=== PATIENT | female | born 2000 | race Caucasian/White ===

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

== ENCOUNTER 2018-04-01 13:33 | Emergency (ER) | payer MEDICAID, SELFPAY ==
[2018-04-01 13:34] VITALS: BP 126/69; PULSE 104; RESP 16; TEMP 36.6; O2SAT 99; BMI 25.2
[2018-04-01 13:55] LABS: Bedside Glucose 126 mg/dL (70-110)
--- NOTE | 2018-04-01 14:00 | ED.DCSUM_ITS ---
- ER Visit Summary Date of Service: 04/01/18 Chief Complaint: Headache and leg pain History of Present Illness: The patient is a [address] Espinosa. She has a history of type 1 diabetes mellitus. She reports that she has pain in both legs that began this morning. States it was present when she woke at 9 AM. She has not had this previously. However, she reports that she has been walking a great deal over the past few days. She also complains of a headache is 4 out of 10 severity. She does have a history of similar headaches. Patient denies any other myalgias. She denies back pain. No fever or chills. No chest pain, cough, or shortness of breath. No abdominal pain. She has been nauseated, but she has not vomited. No diarrhea. No melena or hematochezia. No dysuria frequency. She is on her menstrual cycle now. No vaginal discharge. Physical Examination: Vitals: Stable. Afebrile. General: Well-nourished and well-developed. Head: Normocephalic atraumatic. Neck: Supple, no lymphadenopathy. No JVD. Nontender. Cardiovascular: Regular rate and rhythm. No murmurs. Respiratory: No respiratory distress. Clear to auscultation bilaterally. Abdominal: Soft, nontender, nondistended, normal bowel sounds. No guarding, rebound, or peritoneal signs. Back: Nontender. Extremities: Mild diffuse sinus palpation over her thighs and legs bilaterally. This is both anterior and posterior. She has 2+ dorsalis pedis pulses. She has normal sensation to light touch. No edema. Skin: Normal color, no rash. Neurologic: Alert and oriented ?3. Cranial nerves II through XII are intact. Normal strength and sensation. Psych: Depressed affect. Test Results: Accu-Chek is 126. CBC is remarkable for segment neutrophils 74. Chem-7 is more for potassium 3.4 and creatinine 0.51. CPK is normal. test is negative. Emergency Department Course and Treatment: The patient has a difficult time discerning between pain and numbness. On exam she denies any change in sensation to her legs. However, they are tender to palpation. She was treated with a liter of normal saline and Tylenol p.o. repeat Accu-Chek is 56. The patient ate here. Treatment Plan: Patient be discharged instructions to push fluids. Check her sugar and eat frequent small meals. Follow-up with her primary care physician 1 to days if not improving. Return to the emergency department for any worsening symptoms. Disposition: To home in improved and stable condition. Impression: 1. Myalgias and legs. 2. Type 1 diabetes mellitus. 3. Hypoglycemia. This note was generated with [employer] dictation software. It may contain incorrect words, spelling, and punctuation that were not noted in review of the chart prior to signing ED Disposition - Plan for ED Patient: Chief Complaint: General Illness Instructions: ED Muscle Aching Referrals: Martin Baldwin MD [Primary Care Provider] - 1-2 Days if not improving
[2018-04-01] MEDS: 0.9% Normal Saline 1,000 ML 1000 ML IV (14:17)
[2018-04-01] MEDS: Acetaminophen 500 MG Tablet 1000 MG PO (14:17)
[2018-04-01] MEDS: Ondansetron 4 MG/2 ML Vial IV (14:18)
[2018-04-01 14:26] LABS: Absolute Lymphocyte Count 1.26 X10^3/ul (0.83-4.51); Absolute Neutrophil Count 4.5 X10^3/uL (2.0-7.7); Basophil# 0.04 X10^3/uL; Basophil% 0.7 % (0-1); Eosinophil# 0.06 X10^3/uL; Hematocrit 41.2 % (37-47); Lymphocyte # 1.26 X10^3/ul (4.0); Lymphocyte % 20.7 % (19-41); Mean Corpuscular Hgb 28.3 pg (27.0-32.0); Mean Corpuscular Volume 83.4 fL (81-99); Mean Platelet Vol. 8.6 fl (6.2-12.0); Monocyte# 0.22 X10^3/uL; Monocyte% 3.6 % (0-10); Neutrophil # 4.51 X10^3/uL (2.7-7.7); Platelet Count 289 K/mm3 (150-450); RBC Distribution Width CV 13.1 % (11.6-14.6); RBC Distribution Width SD 39.5 fl (35.1-43.9); Red Blood Count 4.94 M/mm3 (4.2-5.4); White Blood Count 6.1 K/mm3 (4.4-11.0)
[2018-04-01 14:28] LABS: POSITIVE COUNT NO; POSITIVE DIFFERENTIAL NO; POSITIVE MORPHOLOGY NO
[2018-04-01 14:44] LABS: Anion Gap 8 (5-15); BUN 13 mg/dL (7-18); BUN/Creat Ratio 25.6 RATIO (10-20); Calcium,Total 9.2 mg/dL (8.5-10.1); Chloride 106 mmol/L (98-107); Creatinine, Serum 0.51 mg/dL (0.55-1.02); EST Glomerular Filtration Rate 165 mL/min (>60); Est Glom Filt Rate - Afr Amer 199 mL/min (>60); Estimated Creatinine Clearance 158.81 ml/min; Glucose 81 mg/dL (74-106); Potassium 3.4 mmol/L (3.5-5.1); Sodium Level 141 mmol/L (136-145)
[2018-04-01 14:49] LABS: Pregnancy, Serum, hCG Quali. NEGATIVE Negative (0-9 Nonpreg)
[2018-04-01 14:53] LABS: CPK Total, Creatine Kinase 43 U/L (26-192)
[2018-04-01 14:56] LABS: Bedside Glucose 56 mg/dL (70-110)
[2018-04-01 15:35] VITALS: PULSE 92; RESP 14; O2SAT 99
== END 2018-04-01 15:36 | disposition home or self-care (01) ==
PROVIDERS: Emergency Provider Emergency Medicine; Family Provider Pediatrics; PCP Pediatrics
DX: M79.1 Myalgia (principal); E10.649 Type 1 diabetes mellitus with hypoglycemia without coma; J45.909 Unspecified asthma, uncomplicated; Z79.4 Long term (current) use of insulin; Z79.899 Other long term (current) drug therapy
CPT/HCPCS: 80048; 82550; 82962; 84703; 85025; 96361; 96374; 99285; J7030; J2405

== ENCOUNTER 2018-06-29 10:45 | Emergency (ER) | payer MEDICAID, SELFPAY ==
[2018-06-29 10:46] VITALS: BP 126/70; PULSE 87; RESP 16; TEMP 36.6; O2SAT 97; BMI 24.2
[2018-06-29] MEDS: 0.9% Normal Saline 1,000 ML 1000 ML IV (11:22)
[2018-06-29 11:26] LABS: Bedside Glucose 229 mg/dL (70-110)
[2018-06-29 11:26] LABS: Internal QC Validated? YES +Cl - CLEAR BKGD
[2018-06-29 11:27] LABS: Color, Urine Yellow (Yellow); Glucose, Dipstick 1000 mg/dl (Normal); Ketone-Dipstick Negative (Negative); Leukocyte Esterase-Dipstick 25 /ul (Negative); Nitrite-Dipstick Negative (Negative); Occult Blood-Urine 250 /ul (Negative); Protein-Dipstick 15 mg/dl (Negative); Specific Gravity, Urine 1.025 (1.002-1.030); Urine Bilirubin Dipstick Negative (Negative); Urine Clarity Clear (Clear); Urine Urobilinogen Normal (Normal)
[2018-06-29 11:30] LABS: Pregnancy, Urine Negative Negative
[2018-06-29 11:34] LABS: White Blood Cells 0-5 SEEN /hpf (0-5)
[2018-06-29 11:35] LABS: Red Blood Cells-Urine 5-10 SEEN /hpf (0-5); Squamous Epithelial Cells - UA 0-5 SEEN /hpf (5-10)
[2018-06-29 11:36] LABS: Bacteria RARE /hpf (None Seen); Mucous, Urine RARE /hpf (<or=2+)
[2018-06-29 11:36] LABS: Absolute Lymphocyte Count 1.34 X10^3/ul (0.83-4.51); Absolute Neutrophil Count 2.8 X10^3/uL (2.0-7.7); Basophil# 0.01 X10^3/uL; Basophil% 0.2 % (0-1); Eosinophil# 0.04 X10^3/uL; Eosinophils% 0.9 % (0-5); Hematocrit 38.7 % (37-47); Hemoglobin 13.3 g/dl (12.0-15.0); Lymphocyte # 1.34 X10^3/ul (4.0); Mean Corp Hgb Conc 34.4 g/gl (32-36); Mean Corpuscular Hgb 28.2 pg (27.0-32.0); Mean Corpuscular Volume 82.2 fL (81-99); Mean Platelet Vol. 8.6 fl (6.2-12.0); Monocyte# 0.26 X10^3/uL; Monocyte% 5.8 % (0-10); Neutrophil # 2.81 X10^3/uL (2.7-7.7); Neutrophil % 63.1 % (47-70); Platelet Count 245 K/mm3 (150-450); RBC Distribution Width SD 38.8 fl (35.1-43.9); Red Blood Count 4.71 M/mm3 (4.2-5.4); White Blood Count 4.5 K/mm3 (4.4-11.0)
[2018-06-29 11:42] LABS: POSITIVE COUNT NO; POSITIVE DIFFERENTIAL NO; POSITIVE MORPHOLOGY NO
[2018-06-29 11:58] LABS: ALB/GLOB Ratio 1.1 RATIO (0.9-2.4); AST(SGOT) 13 U/L (15-37); Alanine Aminotransfer ALT/SGPT 15 U/L (13-56); Albumin, Serum 3.5 g/dL (3.2-5.0); Alkaline Phosphatase 68 U/L (45-117); Anion Gap 6 (5-15); BUN 11 mg/dL (7-18); BUN/Creat Ratio 22.3 RATIO (10-20); Calcium,Total 8.3 mg/dL (8.5-10.1); Chloride 108 mmol/L (98-107); Creatinine, Serum 0.49 mg/dL (0.55-1.02); EST Glomerular Filtration Rate 170 mL/min (>60); Est Glom Filt Rate - Afr Amer 205 mL/min (>60); Estimated Creatinine Clearance 157.37 ml/min; Globulin 3.1 g/dL (2.2-4.2); Glucose 232 mg/dL (74-106); Potassium 3.7 mmol/L (3.5-5.1); Protein, Total 6.6 g/dL (6.4-8.2); Sodium Level 139 mmol/L (136-145)
--- NOTE | 2018-06-29 12:12 | ED.VISSUMM ---
- ER Visit Summary Date of Service: 06/29/18 Chief Complaint: Abdominal pain History of Present Illness: The patient is a 18 F who states that for 1 week she has had diarrhea and vomiting. She notes a sharp throbbing left lower quadrant abdominal pain that is been intermittent in nature. She is a type I diabetic and has lost her glucometer. Therefore she cannot tell me what her sugars have been running. She states she is not taking insulin anymore because it makes her sick. She does however take her Levemir at night. She last had vomiting 2 days ago and lasted a diarrheal episode last night. No blood in the stool in the vomit. Subjective fever and chills. She is currently on her menstrual cycle. She also notes a headache that has recently developed. She states that she has no light sensitivity. It does not hurt her head significantly to move it back and forth and to bang it on the pillow in the bed (as I observed and pointed out to the patient). No rashes.. Physical Examination: Afebrile vital signs are stable Gen: Well-nourished well-developed Head: Normocephalic atraumatic Eyes: Perrl EOMI ENT: TMs clear no rhinorrhea moist mucous membranes Neck: Supple no lymphadenopathy no JVD nontender CVS: Regular rate rhythm no murmurs normal S1-S2 Respiratory: No distress clear to auscultation bilaterally chest nontender Abdomen: Soft mild diffuse tenderness to palpation without guarding or rebound nondistended normal bowel sounds no masses Back: Nontender Extremity: Nontender no edema Skin: Normal color no rash Neuro: alert orientated ?3 CN II-XII intact normal strength sensation reflexes gait cerebellar Psych: Normal affect normal mood Test Results: Basic labs essentially negative. Elevated blood sugar 232. Urinalysis shows no ketones or obvious infection. Test is negative. White count is normal. Emergency Department Course and Treatment: Patient received IV fluids. I am going to write her for a prescription for Bentyl. I suspect that this is a viral gastroenteritis should resolve. Headache is most likely due to a degree of clinical dehydration. Impression: 1. Gastroenteritis This note was generated with [employer] dictation software. It may contain incorrect words, spelling, and punctuation that were not noted in review of the chart prior to signing ED Disposition - Plan for ED Patient: Disposition: Home or Assisted Living Chief Complaint: Abd Pain Instructions: ED Gastroenteritis Viral Prescriptions: Dicyclomine HCl [Bentyl] 20 mg PO TIDAC #20 cap Referrals: Martin Baldwin MD [Primary Care Provider] - 3-5 Days if not improving
[2018-06-29 12:31] VITALS: BP 117/69; PULSE 77; RESP 17; O2SAT 100
--- NOTE | 2018-06-29 12:32 | NURSING ---
IV DC'ED, CATHETER INTACT, SMALL GAUZE DRESSING PLACED. DISCHARGE INSTRUCTIONS GIVEN TO AND REVIEWED WITH PATIENT, PATIENT DENIES QUESTIONS OR CONCERNS AND VOICES UNDERSTANDING OF DISCHARGE INSTRUCTIONS. PT AMBULATES OUT OF ROOM WITHOUT DIFFICULTY.
== END 2018-06-29 12:32 | disposition home or self-care (01) ==
PROVIDERS: Emergency Provider Emergency Medicine; Family Provider Pediatrics; PCP Pediatrics
DX: A08.4 Viral intestinal infection, unspecified (principal); E10.9 Type 1 diabetes mellitus without complications; J45.909 Unspecified asthma, uncomplicated; Z79.4 Long term (current) use of insulin; Z79.899 Other long term (current) drug therapy
CPT/HCPCS: 80053; 81001; 81025; 82962; 85025; 99283; J7030

== ENCOUNTER 2018-07-02 09:41 | Inpatient (IN) | payer MEDICAID, SELFPAY ==
[2018-07-02] VITALS (17 sets, daily range): BP systolic 89–146; BP diastolic 50–98; PULSE 86–129; RESP 14–26; TEMP 36.5–37.3; O2SAT 98–100; BMI 23.7; BMI 24.3
--- NOTE | 2018-07-02 10:13 | RAD_ITS ---
STUDY: X-RAY CHEST REASON FOR EXAM: Female, 18 years old. Diffuse abdominal pain with nausea and vomiting. TECHNIQUE: Single AP portable view of the chest. COMPARISON: Comparison is made with prior study dated July 05, 2015. FINDINGS: The lungs are clear and expanded. There is no demonstrated pleural abnormality. Normal size heart. Normal mediastinum and [place]. Normal visualized pulmonary arteries. Normal visualized aortic arch and descending thoracic aorta. Normal visualized thoracic spine. Normal visualized ribs, clavicles, and shoulders. There is no demonstrated abnormality of the visualized soft tissue structures of the upper abdomen. RAD/Chest 1 View (Portable) IMPRESSION: Normal x-ray examination of the chest. Electronically Signed: Akil Deutsch MD at 10:45 EST Tel [phone], Service support ,
--- NOTE | 2018-07-02 10:13 | EKG12_ITS ---
Test Reason : Blood Pressure : / mmHG Vent. Rate : 110 BPM Atrial Rate : 110 BPM P-R Int : 122 ms QRS Dur : 078 ms QT Int : 352 ms P-R-T Axes : 068 081 042 degrees QTc Int : 476 ms Sinus tachycardia Otherwise normal ECG Confirmed by GREGORIA AGOSTO, RACHNA ([id number]), newspaper editor managing ROSHAN TRUJILLO ([id number]) on 07/03/2018 11:54:01 AM Referred By: Mary Weems Confirmed By:RACHNA KINNEY MD
[2018-07-02 10:39] LABS: Bacteria 0 SEEN /hpf (None Seen); Mucous, Urine 0 SEEN /hpf (<or=2+); White Blood Cells 0 SEEN /hpf (0-5)
[2018-07-02 10:41] LABS: Color, Urine Yellow (Yellow); Glucose, Dipstick 1000 mg/dl (Normal); Leukocyte Esterase-Dipstick Negative /ul (Negative); Nitrite-Dipstick Negative (Negative); Occult Blood-Urine 250 /ul (Negative); Protein-Dipstick 100 mg/dl (Negative); Specific Gravity, Urine 1.025 (1.002-1.030); Urine Bilirubin Dipstick Negative (Negative); Urine Clarity Sl. Cloudy (Clear); Urine Urobilinogen Normal (Normal)
[2018-07-02 10:43] LABS: Ketone-Dipstick 150 mg/dl (Negative)
[2018-07-02] MEDS: 0.9% Normal Saline 1,000 ML 999 ML IV ×2 (10:44→10:45)
[2018-07-02 10:45] LABS: Absolute Lymphocyte Count 1.19 X10^3/ul (0.83-4.51); Absolute Neutrophil Count 12.7 X10^3/uL (2.0-7.7); Basophil# 0.04 X10^3/uL; Basophil% 0.3 % (0-1); Eosinophil# 0.01 X10^3/uL; Eosinophils% 0.1 % (0-5); Hemoglobin 15.7 g/dl (12.0-15.0); Lymphocyte # 1.19 X10^3/ul (4.0); Lymphocyte % 8.4 % (19-41); Mean Corp Hgb Conc 34.9 g/gl (32-36); Mean Corpuscular Hgb 28.4 pg (27.0-32.0); Mean Corpuscular Volume 81.4 fL (81-99); Monocyte# 0.17 X10^3/uL; Monocyte% 1.2 % (0-10); Neutrophil # 12.74 X10^3/uL (2.7-7.7); Neutrophil % 89.9 % (47-70); Platelet Count 371 K/mm3 (150-450); RBC Distribution Width CV 13.1 % (11.6-14.6); RBC Distribution Width SD 38.5 fl (35.1-43.9); Red Blood Count 5.53 M/mm3 (4.2-5.4); White Blood Count 14.2 K/mm3 (4.4-11.0)
[2018-07-02] MEDS: Ondansetron 4 MG/2 ML Vial IV ×2 (10:45→20:11)
[2018-07-02] MEDS: Dicyclomine 10 MG Capsule 20 MG PO ×2 (10:45→16:48)
[2018-07-02 10:46] LABS: Blood Gas Specimen Type VEN; O2 Delivery Device Room Air; Time Given 1035; VBG BASE EXCESS -18 mmol/L (-1.0-3.5); VBG Bicarbonate 11 mmol/L (22-26); VBG Oxygen Content 11 mmol/L (23-33); VBG PO2 48 mmHg (25-40); VBG SO2 72 % (50-70); VBG pCO2 29.6 mmHg (41-51); VBG pH 7.16 (7.32-7.42)
[2018-07-02 10:46] LABS: Red Blood Cells-Urine 25-50 SEEN /hpf (0-5); Squamous Epithelial Cells - UA 0-5 SEEN /hpf (5-10)
[2018-07-02 10:50] LABS: POSITIVE COUNT NO; POSITIVE DIFFERENTIAL NO; POSITIVE MORPHOLOGY NO
[2018-07-02 10:57] LABS: ALB/GLOB Ratio 1.2 RATIO (0.9-2.4); AST(SGOT) 8 U/L (15-37); Alanine Aminotransfer ALT/SGPT 17 U/L (13-56); Albumin, Serum 4.7 g/dL (3.2-5.0); Alkaline Phosphatase 98 U/L (45-117); Anion Gap 18 (5-15); BUN 14 mg/dL (7-18); BUN/Creat Ratio 21.9 RATIO (10-20); Calcium,Total 9.2 mg/dL (8.5-10.1); Chloride 104 mmol/L (98-107); Creatinine, Serum 0.64 mg/dL (0.55-1.02); EST Glomerular Filtration Rate 126 mL/min (>60); Est Glom Filt Rate - Afr Amer 152 mL/min (>60); Estimated Creatinine Clearance 117.98 ml/min; Globulin 3.9 g/dL (2.2-4.2); Glucose 372 mg/dL (74-106); Lipase 58 U/L (73-393); Potassium 4.1 mmol/L (3.5-5.1); Protein, Total 8.6 g/dL (6.4-8.2); Sodium Level 134 mmol/L (136-145)
--- NOTE | 2018-07-02 11:23 | ED.DCSUM_ITS ---
History of Present Illness Chief Complaint: Abd Pain Informant: Patient Onset: Days - 10 Context: Gradual Onset Timing: Waxes and wanes Quality: ache Location: diffuse Current Severity: Moderate Maximum Severity: Moderate Worsened by: eating Relieved by: nothing Associated Symptoms: n/v Narrative: Patient seen here 3 days ago and was not in DKA. She states she has been trouble getting syringes for her insulins, but has the medications. For the last 3 days, she has been out of syringes for her Levemir and now has stopped using that as well and now is feeling worse. Having trouble keeping fluids down and is very thirsty. States that when she checks her sugars they have been in the 200s and not bad. - Past Medical History (1) Type I diabetes mellitus Status: Chronic Past Medical History - Allergies and Home Meds Allergies/Adverse Reactions: Allergies Egg Derived Allergy (Verified 07/02/18 09:42) Other Penicillins Allergy (Verified 07/02/18 09:42) Unknown Sulfa (Sulfonamide Antibiotics) Allergy (Verified 07/02/18 09:42) Unknown milk Adverse Reaction (Verified 07/02/18 09:42) Diarrhea prednisone Adverse Reaction (Verified 07/02/18 09:42) Vomiting bee stings Allergy (Severe, Uncoded 07/02/18 09:42) Unknown Primary Care Physician: Martin Baldwin MD [Primary Care Provider] - Surgical History: no surgical history Smoking Status: Former smoker Review of Systems General: Reports: Chills, Malaise. Denies: Fever, Sweats Eyes: Denies: Visual changes - bilaterally, Diplopia ENT: Denies: Rhinorrhea, Sore throat Cardiovascular: Denies: Chest pain, Palpitations Respiratory: Reports: Dyspnea. Denies: Cough, Dyspnea on exertion Gastrointestinal: Reports: Abdominal pain, Nausea, Vomiting. Denies: Diarrhea, Melena, Hematochezia Genitourinary: Denies: Dysuria, Hematuria, Frequency Musculoskeletal: Denies: Back pain, Swelling, Extremity Pain Skin: Denies: Rash, Abscess Neurological: Denies: Headache, Weakness, Numbness Endocrine: Reports: Polyuria - Was urinating a lot, now about normal. Feels dehydrated.. Denies: Polydipsia Hematologic: Denies: Easy bruising, Easy bleeding Allergy: Denies: Swelling of the mouth, Swelling of the tongue Physical Exam Vital Signs/Narrative: Vital Signs Temp Pulse Resp BP Pulse Ox 07/02/18 09:43 99.1 F 128 H 16 125/74 H 98 Inital Vital Signs reviewed: Yes General: Well nourished, Well developed, - - Appears malaised, no acute distress Head: Normocephalic, Atraumatic Eyes: Perrl, EOMI ENT: Moist mucous membranes, No rhinorrhea Neck: Supple, Nontender Cardiovascular: Regular rate, Regular rhythm, No murmurs Respiratory: No distress, CTA bilaterally, Chest nontender Abdomen: Soft, Nontender, Nondistended, Normal bowel sounds Back: Nontender, Normal Inspection Extremities: Nontender, No edema Skin: Normal color, No rash Neurological: Alert, Oriented x3, Cranial nerves II-XII grossly intact, Normal Strength, Normal Sensation Psychological: Normal affect Diagnostic/Tx/Re-eval Impressions Chest X-Ray 07/02/18 10:13 IMPRESSION: Normal x-ray examination of the chest. Electronically Signed: Akil Deutsch MD at 10:45 EST Tel [phone], Service support , 07/02/18 10:13 Chest 1 View (Portable) [RAD] Stat Laboratory Results 07/02/18 07/02/18 07/02/18 10:15 10:34 10:34 WBC 14.2 H RBC 5.53 H Hgb 15.7 H Hct 45.0 MCV 81.4 MCH 28.4 MCHC 34.9 RDW 13.1 RDW Differential 38.5 Plt Count 371 MPV 9.0 Immature Gran % (Auto) 0.100 Neut % (Auto) 89.9 H Lymph % (Auto) 8.4 L [place] % (Auto) 1.2 Eos % (Auto) 0.1 Baso % (Auto) 0.3 Absolute Neuts (auto) 12.7 H Absolute Lymphs (auto) 1.19 Total Counted Not Reportable Specimen Type VBG pH VBG pO2 VBG O2 Sat (Calc) VBG O2 Content VBG Base Excess POC Mix VBG pCO2 Pt Tmp O2 Delivery Device Blood Gas Notified Whom Blood Gas Notified Time Sodium 134 L Potassium 4.1 Chloride 104 Carbon Dioxide 12.0 L Anion Gap 18 H BUN 14 Creatinine 0.64 Estim Creat Clear Calc 117.98 Est GFR (MDRD) Af Amer 152 Est GFR (MDRD) Non-Af 126 BUN/Creatinine Ratio 21.9 H Glucose 372 H Calcium 9.2 Total Bilirubin 0.90 AST 8 L ALT 17 Alkaline Phosphatase 98 Total Protein 8.6 H Albumin 4.7 Globulin 3.9 Albumin/Globulin Ratio 1.2 Lipase 58 L Urine Color Yellow Urine Clarity Sl. Cloudy Urine pH 5.0 Ur Specific [place] 1.025 Urine Protein 100 H Urine Glucose (UA) 1000 H Urine Ketones 150 H Urine Occult Blood 250 H Urine Nitrite Negative Urine Bilirubin Negative Urine Urobilinogen Normal Ur Leukocyte Esterase Negative Urine RBC 25-50 SEEN Urine WBC 0 SEEN Ur Squamous Epith Cells 0-5 SEEN Urine Bacteria 0 SEEN Urine Mucus 0 SEEN Acetone Level 07/02/18 07/02/18 10:34 10:41 WBC RBC Hgb Hct MCV MCH MCHC RDW RDW Differential Plt Count MPV Immature Gran % (Auto) Neut % (Auto) Lymph % (Auto) [place] % (Auto) Eos % (Auto) Baso % (Auto) Absolute Neuts (auto) Absolute Lymphs (auto) Total Counted Specimen Type LUIS VBG pH 7.16 L* VBG pO2 48 H VBG O2 Sat (Calc) 72 H VBG O2 Content 11 L VBG Base Excess -18 L POC Mix VBG pCO2 Pt Tmp 29.6 L O2 Delivery Device Room Air Blood Gas Notified Whom ED Blood Gas Notified Time 1035 Sodium Potassium Chloride Carbon Dioxide Anion Gap BUN Creatinine Estim Creat Clear Calc Est GFR (MDRD) Af Amer Est GFR (MDRD) Non-Af BUN/Creatinine Ratio Glucose Calcium Total Bilirubin AST ALT Alkaline Phosphatase Total Protein Albumin Globulin Albumin/Globulin Ratio Lipase Urine Color Urine Clarity Urine pH Ur Specific [place] Urine Protein Urine Glucose (UA) Urine Ketones Urine Occult Blood Urine Nitrite Urine Bilirubin Urine Urobilinogen Ur Leukocyte Esterase Urine RBC Urine WBC Ur Squamous Epith Cells Urine Bacteria Urine Mucus Acetone Level SMALL H - Rhythm Strip Rhythm Strip: Sinus Tach Rate: 110 Ectopy: None - EKG Initial EKG Interpretation: No Acute Injury Pattern - Otherwise normal EKG with normal intervals, Sinus Tachycardia - Medical Decision Making Workup is consistent with DKA, she has an acidosis with a pH of 7.1 on ABG, positive ketones now, blood sugars in the 300s. Her potassium is okay, so after a couple liters of fluid and Zofran she was started on an insulin drip. On multiple reevaluation she is feeling much better even before the insulin was started. She will need to be admitted to the ICU, discussed with hospitalist. Procedures Critical care time (excluding procedures): 30-74 minutes - 35 min ED Disposition - Plan for ED Patient: Disposition: Acute Care Hospital [facility] Chief Complaint: Abd Pain Diagnosis: DKA (diabetic ketoacidoses) Referrals: Martin Baldwin MD [Primary Care Provider] -
--- NOTE | 2018-07-02 11:36 | HP.PCM_ITS ---
Problem List (1) DKA (diabetic ketoacidoses) Status: Acute Qualifiers: Diabetes mellitus type: type 1 Diabetes mellitus complication detail: without coma Qualified Code(s): E10.10 - Type 1 diabetes mellitus with ketoacidosis without coma (2) Type I diabetes mellitus Status: Chronic Qualifiers: Diabetes mellitus complication status: without complication Qualified Code(s): E10.9 - Type 1 diabetes mellitus without complications History of Present Illness Date of Admission: 07/02/18 Chief Complaint: Nausea, vomiting, abdominal pain - 3 days The patient is a 18 year old F with past medical history of type I DM, follows up with endocrinology in the outpatient, comes in with complaints of abdominal pain, nausea, vomiting, ongoing for the past 3 days. Patient has not been taking his Levemir insulin because she ran out of salcido to get her insulin. She presented to the emergency department with the above and headaches 3 days ago, received some IV fluids, improved and was discharged. She denied any fever or chills or shortness of breath or diarrhea. At the time of being examined, abdominal pain was gone, she feels less nauseous, starting to feel better. Vitals in the ED show temperature 97.8 F, heart rate 87, blood pressure 126/70, respiratory 16, SPO2 97% on room air. Blood work shows RBC count of 14.2, Hb 15.7, platelet count was 371. BMP shows sodium 134, potassium 4.1, chloride 104, bicarbonate 12, anion gap was 18, BUN 14, creatinine 0.64, blood sugar was 372. VBG shows pH of 7.16, PO2 was 48 PCO2 was 29.6 Admitting chest x-ray showed no acute coronary process. Past Medical History Past Medical History (Chronic Problems): Chronic Problems (Last Reviewed 10/15/17 @ 11:21 by Adriana Mulligan) Type I diabetes mellitus (Chronic) Medical History: Medical History (Last Reviewed 10/15/17 @ 11:21 by Adriana Mulligan) Asthma J45.909 Diabetes type 1, controlled E10.9 Dx : age 8 Last exacerbation : DKA : 2016 Hypoglycemic episode : never ER visit : 2016 Allergies Egg Derived Allergy (Verified 07/02/18 09:42) Other Penicillins Allergy (Verified 07/02/18 09:42) Unknown Sulfa (Sulfonamide Antibiotics) Allergy (Verified 07/02/18 09:42) Unknown milk Adverse Reaction (Verified 07/02/18 09:42) Diarrhea prednisone Adverse Reaction (Verified 07/02/18 09:42) Vomiting bee stings Allergy (Severe, Uncoded 07/02/18 09:42) Unknown Home Medications: Ambulatory Orders Medication Instructions Recorded Albuterol Inhaler [Ventolin Hfa 1 - 2 puff INHALATION Q6H PRN PRN 07/05/15 (SP)] Epinephrine [Epi Pen] 0.3 mg IM X1 #1 syringe 02/09/17 etonogestrel 68 mg subdermal 1 implant SUBDERMAL ONCE 07/03/17 implant glucagon (human recombinant) 1 mg 1 mg IM ONCE 07/03/17 injection kit insulin aspart U- 100 100 unit/mL See Rx Instructions SC TID #120 ml 11/24/17 subcutaneous pen Cetirizine HCl [Zyrtec] 10 mg PO DAILY 04/01/18 Dicyclomine HCl [Bentyl] 20 mg PO TIDAC #20 cap 06/29/18 Insulin Detemir [Levemir U-100 80 unit SC QHS 06/29/18 Insulin] Syringe and Needle,Insulin,1Ml 0 unit .ROUTE .MEDSUPPLY 06/29/18 [Techlite Insulin Syringe] Surgical History: Surgical History (Last Reviewed 10/15/17 @ 11:21 by Adriana Mulligan) History of placement of ear tubes Z86.69 Surgical History: tonsillectomy, - - status post control insertion Psychiatric History: No pertinent psych hx 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 Denies: Chills, Fever, Weight Change Eyes: Denies: Blurred vision, Cataracts, Conjunctivae Inflammation, Double vision, Pain, Redness, Vision Change HEENT: Denies: Difficulty Hearing, Difficulty Swallowing, Head Aches, Hearing Changes, Sinus Congestion, Sinus Drainage, Sore Throat Cardiovascular: Denies: Chest Pain, Claudication, Orthopnea, Palpitations Respiratory: Denies: Cough, Hemoptysis, Shortness of breath at rest, Shortness of breath upon exertion, Sputum production Gastrointestinal: Reports: Abdominal Pain, Nausea, Vomiting Genitourinary: Denies: Dysuria, Frequency, Incontinence, Nocturia, Retention Gynecological: Denies: Breast symptoms, Excessively long or heavy periods, Sexual concerns, Vaginal bleeding Musculoskeletal: Denies: Joint Pain, Joint stiffness, Joint swelling, Joint Tenderness Skin: Denies: Pruritis, Rash, Wounds Neurological: Denies: Numbness, Tingling, Focal weakness Psychiatric: Denies: Anxiety, Depression, Homicidal Ideations, Suicidal Ideations Hematologic/ Lymphatic: Denies: Easy Bruising, Easy Bleeding VTE Information - Inpt Only VTE Present on Admission: No VTE Pharm Prophylaxis ordered?: Yes Patient Problems: Active and Suspected Problems (Last Reviewed 10/15/17 @ 11:21 by Adriana Mulligan) DKA (diabetic ketoacidoses) (Acute) - Physical Exam General: Alert, Oriented x3, Cooperative, No apparent distress HEENT: Atraumatic, PERRLA, EOMI, Normocephalic Oral: Dry Mucosa - tongue ring present Neck: Supple, No JVD, Negative Carotid Bruits Lungs: Clear to auscultation, Normal air movement Cardiovascular: Regular rate, Regular Rhythm, Normal S1, Normal S2, No murmurs Abdomen: Bowel Sounds Present, Soft, Non Tender, Non-Distended, No Hepato- splenomegaly Extremities: No edema Skin: No rashes, No breakdown Musculoskeletal: No Tenderness to Palpation of Joints or Extremities Lymphatic: No Cervical, Supraclavicular, or Inguinal Adenopathy Neurological: Cranial nerves II-XII grossly intact, Neuro grossly intact Psych/Mental Status: Normal Affect, Appropriate Vital Signs Temp Pulse Resp BP Pulse Ox 99.1 F 128 H 16 125/74 H 98 07/02/18 09:43 07/02/18 09:43 07/02/18 09:43 07/02/18 09:43 07/02/18 09:43 Oxygen Delivery Method Room Air Weight: 53.3 kg Body Mass Index (BMI) 23.7 Finger Stick Blood Glucose 229 Laboratory Tests Past 24 Hrs 07/02/18 07/02/18 07/02/18 10:15 10:34 10:34 WBC 14.2 H RBC 5.53 H Hgb 15.7 H Hct 45.0 MCV 81.4 MCH 28.4 MCHC 34.9 RDW 13.1 RDW Differential 38.5 Plt Count 371 MPV 9.0 Immature Gran % (Auto) 0.100 Neut % (Auto) 89.9 H Lymph % (Auto) 8.4 L [place] % (Auto) 1.2 Eos % (Auto) 0.1 Baso % (Auto) 0.3 Absolute Neuts (auto) 12.7 H Absolute Lymphs (auto) 1.19 Total Counted Not Reportable Specimen Type VBG pH VBG pO2 VBG O2 Sat (Calc) VBG O2 Content VBG Base Excess POC Mix VBG pCO2 Pt Tmp O2 Delivery Device Blood Gas Notified Whom Blood Gas Notified Time Sodium 134 L Potassium 4.1 Chloride 104 Carbon Dioxide 12.0 L Anion Gap 18 H BUN 14 Creatinine 0.64 Estim Creat Clear Calc 117.98 Est GFR (MDRD) Af Amer 152 Est GFR (MDRD) Non-Af 126 BUN/Creatinine Ratio 21.9 H Glucose 372 H Calcium 9.2 Total Bilirubin 0.90 AST 8 L ALT 17 Alkaline Phosphatase 98 Total Protein 8.6 H Albumin 4.7 Globulin 3.9 Albumin/Globulin Ratio 1.2 Lipase 58 L Urine Color Yellow Urine Clarity Sl. Cloudy Urine pH 5.0 Ur Specific [place] 1.025 Urine Protein 100 H Urine Glucose (UA) 1000 H Urine Ketones 150 H Urine Occult Blood 250 H Urine Nitrite Negative Urine Bilirubin Negative Urine Urobilinogen Normal Ur Leukocyte Esterase Negative Urine RBC 25-50 SEEN Urine WBC 0 SEEN Ur Squamous Epith Cells 0-5 SEEN Urine Bacteria 0 SEEN Urine Mucus 0 SEEN Acetone Level 07/02/18 07/02/18 10:34 10:41 WBC RBC Hgb Hct MCV MCH MCHC RDW RDW Differential Plt Count MPV Immature Gran % (Auto) Neut % (Auto) Lymph % (Auto) [place] % (Auto) Eos % (Auto) Baso % (Auto) Absolute Neuts (auto) Absolute Lymphs (auto) Total Counted Specimen Type LUIS VBG pH 7.16 L* VBG pO2 48 H VBG O2 Sat (Calc) 72 H VBG O2 Content 11 L VBG Base Excess -18 L POC Mix VBG pCO2 Pt Tmp 29.6 L O2 Delivery Device Room Air Blood Gas Notified Whom ED Blood Gas Notified Time 1035 Sodium Potassium Chloride Carbon Dioxide Anion Gap BUN Creatinine Estim Creat Clear Calc Est GFR (MDRD) Af Amer Est GFR (MDRD) Non-Af BUN/Creatinine Ratio Glucose Calcium Total Bilirubin AST ALT Alkaline Phosphatase Total Protein Albumin Globulin Albumin/Globulin Ratio Lipase Urine Color Urine Clarity Urine pH Ur Specific [place] Urine Protein Urine Glucose (UA) Urine Ketones Urine Occult Blood Urine Nitrite Urine Bilirubin Urine Urobilinogen Ur Leukocyte Esterase Urine RBC Urine WBC Ur Squamous Epith Cells Urine Bacteria Urine Mucus Acetone Level SMALL H Assessment/Plan All Active Problems (Last Reviewed 10/15/17 @ 11:21 by Adriana Mulligan) DKA (diabetic ketoacidoses) (Acute) 18 year old F with past medical history of type I DM, follows up with endocrinology in the outpatient, comes in with complaints of abdominal pain, nausea, vomiting, ongoing for the past 3 days. 1. Acute DKA in a known type I diabetic secondary to missed medications, no signs of infection seen, anion gap is 18 on admission Plan: Admit to ICU, DKA protocol, IV fluids, insulin drip,nutrition consult, case management consult for medication assistance, resume home insulin when anion gap is closed 2. Leucoytosis, no signs of infection, likely reactive, will monitor 3. Pseudohyponatremia secondary to DKA/dehydration, will trend labs 4. DVT PPx- early ambulation. Code Visit Inpatient E&M: 22098 Init Hosp L3
--- NOTE | 2018-07-02 12:13 | ED.RN ---
nursing report called to ICU. Pt is ok to come for floor per ICU staff.
[2018-07-02 12:45] LABS: Bedside Glucose 302 mg/dL (70-110)
[2018-07-02] MEDS: Dext 5%-0.45% NS 1,000 ML 150 ML IV ×2 (13:40→20:11)
[2018-07-02 14:00] LABS: Anion Gap 16 (5-15); BUN 12 mg/dL (7-18); BUN/Creat Ratio 18.8 RATIO (10-20); Calcium,Total 7.8 mg/dL (8.5-10.1); Chloride 113 mmol/L (98-107); Creatinine, Serum 0.64 mg/dL (0.55-1.02); EST Glomerular Filtration Rate 125 mL/min (>60); Est Glom Filt Rate - Afr Amer 152 mL/min (>60); Estimated Creatinine Clearance 121.08 ml/min; Glucose 195 mg/dL (74-106); Potassium 4.3 mmol/L (3.5-5.1); Sodium Level 141 mmol/L (136-145)
[2018-07-02 14:10] LABS: Bedside Glucose 238 mg/dL (70-110)
[2018-07-02 14:10] LABS: Bedside Glucose 183 mg/dL (70-110)
[2018-07-02 15:45] LABS: Magnesium 1.8 mg/dL (1.6-2.6); Phosphorus 2.5 mg/dL (2.5-4.9)
[2018-07-02 16:41] LABS: Bedside Glucose 191 mg/dL (70-110)
[2018-07-02 16:41] LABS: Bedside Glucose 159 mg/dL (70-110)
[2018-07-02 17:41] LABS: Bedside Glucose 154 mg/dL (70-110)
[2018-07-02 18:41] LABS: Bedside Glucose 148 mg/dL (70-110)
[2018-07-02 18:55] LABS: BUN 9 mg/dL (7-18); EST Glomerular Filtration Rate 168 mL/min (>60); Est Glom Filt Rate - Afr Amer 204 mL/min (>60); Estimated Creatinine Clearance 154.98 ml/min; Glucose 164 mg/dL (74-106)
[2018-07-02 18:56] LABS: Anion Gap 9 (5-15); BUN/Creat Ratio 18.1 RATIO (10-20); Calcium,Total 7.7 mg/dL (8.5-10.1); Chloride 112 mmol/L (98-107); Magnesium 1.7 mg/dL (1.6-2.6); Phosphorus 2.1 mg/dL (2.5-4.9); Potassium 3.5 mmol/L (3.5-5.1); Sodium Level 138 mmol/L (136-145)
[2018-07-02 19:36] LABS: Bedside Glucose 174 mg/dL (70-110)
[2018-07-02 19:51] LABS: Bedside Glucose 136 mg/dL (70-110)
[2018-07-02] MEDS: 0.9% NaCl Peripheral Flush Adult/Peds IV (20:11)
[2018-07-02 21:06] LABS: Bedside Glucose 137 mg/dL (70-110)
[2018-07-02 21:45] LABS: Bedside Glucose 115 mg/dL (70-110)
[2018-07-02 22:20] LABS: Anion Gap 7 (5-15); BUN 8 mg/dL (7-18); BUN/Creat Ratio 15.2 RATIO (10-20); Calcium,Total 7.7 mg/dL (8.5-10.1); Chloride 112 mmol/L (98-107); Creatinine, Serum 0.53 mg/dL (0.55-1.02); EST Glomerular Filtration Rate 157 mL/min (>60); Est Glom Filt Rate - Afr Amer 190 mL/min (>60); Estimated Creatinine Clearance 146.21 ml/min; Glucose 116 mg/dL (74-106); Potassium 3.5 mmol/L (3.5-5.1); Sodium Level 138 mmol/L (136-145)
[2018-07-02 23:00] LABS: Bedside Glucose 96 mg/dL (70-110)
[2018-07-02 23:51] LABS: Bedside Glucose 125 mg/dL (70-110)
[2018-07-03] VITALS (15 sets, daily range): BP systolic 106–140; BP diastolic 57–75; PULSE 88–106; RESP 18–23; TEMP 36.4–37.2; O2SAT 94–100
[2018-07-03 01:01] LABS: Bedside Glucose 242 mg/dL (70-110)
[2018-07-03 02:31] LABS: Bedside Glucose 320 mg/dL (70-110)
[2018-07-03 02:57] LABS: Anion Gap 11 (5-15); BUN 10 mg/dL (7-18); BUN/Creat Ratio 19.3 RATIO (10-20); Calcium,Total 7.8 mg/dL (8.5-10.1); Chloride 107 mmol/L (98-107); Creatinine, Serum 0.52 mg/dL (0.55-1.02); EST Glomerular Filtration Rate 160 mL/min (>60); Est Glom Filt Rate - Afr Amer 193 mL/min (>60); Estimated Creatinine Clearance 149.02 ml/min; Glucose 336 mg/dL (74-106); Potassium 3.8 mmol/L (3.5-5.1); Sodium Level 135 mmol/L (136-145)
[2018-07-03] MEDS: 0.9% NaCl Peripheral Flush Adult/Peds IV ×2 (04:22→07:42)
[2018-07-03 04:35] LABS: Bedside Glucose 301 mg/dL (70-110)
[2018-07-03 04:48] LABS: Absolute Lymphocyte Count 1.46 X10^3/ul (0.83-4.51); Absolute Neutrophil Count 10.1 X10^3/uL (2.0-7.7); Basophil# 0.03 X10^3/uL; Basophil% 0.2 % (0-1); Eosinophil# 0.06 X10^3/uL; Eosinophils% 0.5 % (0-5); Hematocrit 37.6 % (37-47); Hemoglobin 13.3 g/dl (12.0-15.0); Lymphocyte # 1.46 X10^3/ul (4.0); Mean Corp Hgb Conc 35.4 g/gl (32-36); Mean Corpuscular Hgb 28.7 pg (27.0-32.0); Mean Platelet Vol. 9.1 fl (6.2-12.0); Monocyte# 0.57 X10^3/uL; Monocyte% 4.7 % (0-10); Neutrophil # 10.06 X10^3/uL (2.7-7.7); Neutrophil % 82.4 % (47-70); Platelet Count 373 K/mm3 (150-450); RBC Distribution Width CV 13.5 % (11.6-14.6); RBC Distribution Width SD 38.6 fl (35.1-43.9); Red Blood Count 4.64 M/mm3 (4.2-5.4); White Blood Count 12.2 K/mm3 (4.4-11.0)
[2018-07-03 04:53] LABS: POSITIVE COUNT NO; POSITIVE DIFFERENTIAL NO; POSITIVE MORPHOLOGY NO
[2018-07-03 04:59] LABS: Anion Gap 14 (5-15); BUN 9 mg/dL (7-18); BUN/Creat Ratio 16.1 RATIO (10-20); Calcium,Total 7.9 mg/dL (8.5-10.1); Chloride 107 mmol/L (98-107); Creatinine, Serum 0.56 mg/dL (0.55-1.02); EST Glomerular Filtration Rate 147 mL/min (>60); Est Glom Filt Rate - Afr Amer 178 mL/min (>60); Estimated Creatinine Clearance 138.38 ml/min; Glucose 297 mg/dL (74-106); Potassium 3.7 mmol/L (3.5-5.1); Sodium Level 137 mmol/L (136-145)
[2018-07-03] MEDS: Dicyclomine 10 MG Capsule 20 MG PO ×3 (06:30→16:59)
[2018-07-03 06:37] LABS: Bedside Glucose 243 mg/dL (70-110)
[2018-07-03] MEDS: 0.9% Normal Saline 1,000 ML 75 ML IV (08:17)
[2018-07-03] MEDS: Insulin Lispro 100 UNIT/ML INSULN.PEN SC ×4 (08:17→22:12)
[2018-07-03] MEDS: Loratadine 10 MG Tablet PO (08:35)
--- NOTE | 2018-07-03 08:39 | PCM.PN.HOSP ---
Patient Problems: Active and Suspected Problems (Last Reviewed 10/15/17 @ 11:21 by Adriana Mulligan) DKA (diabetic ketoacidoses) (Acute) Subjective: Patient seen and examined. She feels better. Denies dizziness, SOB, chest pain. She has been started on long-acting insulin overnight. Objective: Physical Exam General: Alert, Oriented x3, Cooperative, No apparent distress HEENT: Atraumatic, PERRLA, EOMI, Normocephalic Oral: Dry Mucosa - tongue ring present Neck: Supple, No JVD, Negative Carotid Bruits Lungs: Clear to auscultation, Normal air movement Cardiovascular: Regular rate, Regular Rhythm, Normal S1, Normal S2, No murmurs Abdomen: Bowel Sounds Present, Soft, Non Tender, Non-Distended, No Hepato-splenomegaly Extremities: No edema Skin: No rashes, No breakdown Musculoskeletal: No Tenderness to Palpation of Joints or Extremities Lymphatic: No Cervical, Supraclavicular, or Inguinal Adenopathy Neurological: Cranial nerves II-XII grossly intact, Neuro grossly intact Psych/Mental Status: Normal Affect, Appropriate Vitals/I&O's: Vital Signs Temp Pulse Resp BP Pulse Ox 99.0 F 89 18 129/65 H 98 07/03/18 04:00 07/03/18 06:00 07/03/18 06:00 07/03/18 06:00 07/03/18 06:00 Oxygen Delivery Method Room Air Weight: 56.4 kg Body Mass Index (BMI) 24.3 Finger Stick Blood Glucose 125 Intake and Output for Last 24 Hours 07/01/18 07/02/18 07/03/18 23:59 23:59 23:59 Intake Total 2160 / 2160 800 / 800 Output Total 1650 / 1650 Balance 510 / 510 800 / 800 Laboratory Results 07/02/18 10:15: Urine Color Yellow, Urine Clarity Sl. Cloudy, Urine pH 5.0, Ur Specific [place] 1.025, Urine Protein 100 H, Urine Glucose (UA) 1000 H, Urine Ketones 150 H, Urine Occult Blood 250 H, Urine Nitrite Negative, Urine Bilirubin Negative, Urine Urobilinogen Normal, Ur Leukocyte Esterase Negative, Urine RBC 25-50 SEEN, Urine WBC 0 SEEN, Ur Squamous Epith Cells 0-5 SEEN, Urine Bacteria 0 SEEN, Urine Mucus 0 SEEN 07/02/18 10:34: WBC 14.2 H, RBC 5.53 H, Hgb 15.7 H, Hct 45.0, MCV 81.4, MCH 28.4, MCHC 34.9, RDW 13.1, RDW Differential 38.5, Plt Count 371, MPV 9.0, Immature Gran % (Auto) 0.100, Neut % (Auto) 89.9 H, Lymph % (Auto) 8.4 L, [place] % (Auto) 1.2, Eos % (Auto) 0.1, Baso % (Auto) 0.3, Absolute Neuts (auto) 12.7 H, Absolute Lymphs (auto) 1.19, Total Counted Not Reportable 07/02/18 10:34: Sodium 134 L, Potassium 4.1, Chloride 104, Carbon Dioxide 12.0 L, Anion Gap 18 H, BUN 14, Creatinine 0.64, Estim Creat Clear Calc 117.98, Est GFR (MDRD) Af Amer 152, Est GFR (MDRD) Non-Af 126, BUN/Creatinine Ratio 21.9 H, Glucose 372 H, Calcium 9.2, Total Bilirubin 0.90, AST 8 L, ALT 17, Alkaline Phosphatase 98, Total Protein 8.6 H, Albumin 4.7, Globulin 3.9, Albumin/Globulin Ratio 1.2, Lipase 58 L 07/02/18 10:34: Acetone Level SMALL H 07/02/18 10:41: Specimen Type LUIS, VBG pH 7.16 L*, VBG pO2 48 H, VBG O2 Sat (Calc) 72 H, VBG O2 Content 11 L, VBG Base Excess -18 L, POC Mix VBG pCO2 Pt Tmp 29.6 L, O2 Delivery Device Room Air, Blood Gas Notified Whom ED , Blood Gas Notified Time 1035 07/02/18 11:35: POC Glucose 302 H 07/02/18 12:34: POC Glucose 238 H 07/02/18 13:28: POC Glucose 183 H 07/02/18 13:30: Hemoglobin A1c 11.0 H 07/02/18 13:30: Sodium 141, Potassium 4.3, Chloride 113 H, Carbon Dioxide 12.0 L, Anion Gap 16 H, BUN 12, Creatinine 0.64, Estim Creat Clear Calc 121.08, Est GFR (MDRD) Af Amer 152, Est GFR (MDRD) Non-Af 125, BUN/Creatinine Ratio 18.8, Glucose 195 H, Calcium 7.8 L 07/02/18 13:30: Phosphorus 2.5, Magnesium 1.8 07/02/18 13:30: Phosphorus Cancelled 07/02/18 14:35: POC Glucose 174 H 07/02/18 15:34: POC Glucose 191 H 07/02/18 16:35: POC Glucose 159 H 07/02/18 17:34: POC Glucose 154 H 07/02/18 18:00: Sodium 138, Potassium 3.5, Chloride 112 H, Carbon Dioxide 17.0 L, Anion Gap 9, BUN 9, Creatinine 0.50 L, Estim Creat Clear Calc 154.98, Est GFR (MDRD) Af Amer 204, Est GFR (MDRD) Non-Af 168, BUN/Creatinine Ratio 18.1, Glucose 164 H, Calcium 7.7 L, Phosphorus 2.1 L, Magnesium 1.7 07/02/18 18:31: POC Glucose 148 H 07/02/18 19:35: POC Glucose 136 H 07/02/18 20:37: POC Glucose 137 H 07/02/18 21:38: POC Glucose 115 H 07/02/18 22:00: Sodium 138, Potassium 3.5, Chloride 112 H, Carbon Dioxide 19.0 L, Anion Gap 7, BUN 8, Creatinine 0.53 L, Estim Creat Clear Calc 146.21, Est GFR (MDRD) Af Amer 190, Est GFR (MDRD) Non-Af 157, BUN/Creatinine Ratio 15.2, Glucose 116 H, Calcium 7.7 L 07/02/18 22:49: POC Glucose 96 07/02/18 23:43: POC Glucose 125 H 07/03/18 00:48: POC Glucose 242 H 07/03/18 02:20: POC Glucose 320 H 07/03/18 02:25: Sodium 135 L, Potassium 3.8, Chloride 107, Carbon Dioxide 17.0 L, Anion Gap 11, BUN 10, Creatinine 0.52 L, Estim Creat Clear Calc 149.02, Est GFR (MDRD) Af Amer 193, Est GFR (MDRD) Non-Af 160, BUN/Creatinine Ratio 19.3, Glucose 336 H, Calcium 7.8 L 07/03/18 04:24: POC Glucose 301 H 07/03/18 04:30: WBC 12.2 H, RBC 4.64, Hgb 13.3, Hct 37.6, MCV 81.0, MCH 28.7, MCHC 35.4, RDW 13.5, RDW Differential 38.6, Plt Count 373, MPV 9.1, Immature Gran % (Auto) 0.200, Neut % (Auto) 82.4 H, Lymph % (Auto) 12.0 L, [place] % (Auto) 4.7, Eos % (Auto) 0.5, Baso % (Auto) 0.2, Absolute Neuts (auto) 10.1 H, Absolute Lymphs (auto) 1.46, Total Counted Not Reportable 07/03/18 04:30: Sodium 137, Potassium 3.7, Chloride 107, Carbon Dioxide 16.0 L, Anion Gap 14, BUN 9, Creatinine 0.56, Estim Creat Clear Calc 138.38, Est GFR (MDRD) Af Amer 178, Est GFR (MDRD) Non-Af 147, BUN/Creatinine Ratio 16.1, Glucose 297 H, Calcium 7.9 L 07/03/18 06:28: POC Glucose 243 H Current Medications Dextrose (D50w Syringe) 0 gm IV X1 PRN; Protocol PRN Reason: HYPOGLYCEMIA Dicyclomine HCl (Bentyl) 20 mg PO TIDAC [facility] Last Admin: 07/03/18 06:30 Dose: 20 mg Glucagon () 1 mg IM .X1 PRN PRN Reason: Hypoglycemia Sodium Chloride () 250 mls @ 15 mls/hr IV .[id number] PRN PRN Reason: SALINE FLUSH Sodium Chloride () 1,000 mls @ 75 mls/hr IV .[id number] [facility] Stop: 07/04/18 10:39 Last Admin: 07/03/18 08:17 Dose: 75 mls/hr Insulin Glargine (Lantus (Bkc)) 40 units SC BID [facility] Last Admin: 07/03/18 08:19 Dose: 40 u Insulin Human Lispro (Humalog Kwikpen (Bkc)) 0 unit SC ACHS [facility]; Protocol Last Admin: 07/03/18 08:17 Dose: 6 u Loratadine (Claritin) 10 mg PO DAILY [facility] Last Admin: 07/03/18 08:35 Dose: 10 mg Magnesium Hydroxide (Milk Of Magnesia) 30 ml PO DAILY PRN PRN PRN Reason: Constipation Ondansetron HCl (Zofran) 4 mg IV Q8H PRN PRN PRN Reason: NAUSEA Last Admin: 07/02/18 20:11 Dose: 4 mg Psyllium Hydrophilic Mucilloid (Metamucil) 1 packet PO DAILY PRN PRN PRN Reason: CONSTIPATION Sodium Chloride () 5 - 15 ml IV UD PRN PRN Reason: SALINE FLUSH Last Admin: 07/03/18 07:42 Dose: 10 ml Medical Necessity - Tobacco Use Smoking Status: Former smoker Tobacco Use: Non-smoker Assessment/Plan All Active Problems (Last Reviewed 10/15/17 @ 11:21 by Adriana Mulligan) DKA (diabetic ketoacidoses) (Acute) 18 year old F with past medical history of type I DM, follows up with endocrinology in the outpatient, comes in with complaints of abdominal pain, nausea, vomiting, ongoing for the past 3 days. 1. Acute DKA in a known type I diabetic secondary to missed medications, resolved 2. Type 1 DM, BS uncontrolled, restarted on Lantus 40units BID, will continue with accucheks and ISS, pin inserter regulator to see. Case management to assist with medication assistance from Pharmacy. 3. Leucoytosis, no signs of infection, likely reactive, will monitor 4. Pseudohyponatremia secondary to DKA/dehydration, resolved 5. DVT PPx- early ambulation. Code Visit Inpatient E&M: 58127 Subs Hosp L2
[2018-07-03] MEDS: Ibuprofen 400 MG Tablet PO (09:00)
[2018-07-03 09:03] LABS: Anion Gap 13 (5-15); BUN 7 mg/dL (7-18); BUN/Creat Ratio 12.8 RATIO (10-20); Calcium,Total 8.1 mg/dL (8.5-10.1); Chloride 106 mmol/L (98-107); Creatinine, Serum 0.55 mg/dL (0.55-1.02); EST Glomerular Filtration Rate 150 mL/min (>60); Est Glom Filt Rate - Afr Amer 181 mL/min (>60); Estimated Creatinine Clearance 145.27 ml/min; Glucose 274 mg/dL (74-106); Potassium 3.6 mmol/L (3.5-5.1); Sodium Level 136 mmol/L (136-145)
--- NOTE | 2018-07-03 09:20 | CASEMGMT ---
SARA NICOLE ASSESSMENT Face to Face with patient for initial transition planning/care coordination assessment. SARA NICOLE introduced self and role at [facility]. Pt voices understanding and consents to assessment at this time. Pt resting in bed in no distress at this time. Pt is A/O at this time and answers all questions appropriately. Care providers, pharmacy, and demographics verified/updated at this time. PCP: Denny Specialists: RAULITO Sterling. Preferred [facility]acy: [facility] Insurance: [employer] Prescription Benefit: Yes Living Will/HPOA: Pt does not currently have LW/HCPOA and declines info at this time. LNOK: Mother, father, siblings. Living Arrangements: Lives with family and fiance. Transportation: Pt states she does not drive. States her fiance provides transportation everywhere. Given information from [employer] Website on transportation and also made aware she can call the number on her [employer] card and inquire about transportation to Dr [place]. Also given [facility] transportation service information. DME: States used to have a Glucometer but lost it and would like to get another one. Pt states has Insulin vials but would like to get the insulin pen. Pt wishes to return home and states has no concerns with going home at time of discharge. Talked with pt about [facility]. Pt states she has been there and states, I could go ahead and make another appt with them. Pt voices no further concerns/needs at this time. Advised pt to ask for CM if any further questions/concerns/needs arise. Voices understanding. Plan: Home Melissa MEAD RN, CM
--- NOTE | 2018-07-03 11:04 | CASEMGMT ---
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 THIS WORKER MET WITH PT IN ROOM. INTRODUCED ROLE AND REASON FOR REFERRAL. PT REPORTS LIVES HOME WITH HER MOTHER, SIBLINGS (2 SISTERS, 1 BROTHER) AND HERMINIO ARAUJO. PT STATES FOLLOWS WITH DR. ALISHA ARELLANO FOR PRIMARY CARE. PT WORKS AT [employer] AND STATES HAS NO ISSUES WITH FINANCES OR OBTAINING MEDICATION AND DM SUPPLIES. PT DENIES ANY HX OF MENTAL HEALTH OR SUBSTANCE ABUSE. PT ADMITS TO MISSING APPOINTMENTS AND STATES DID TAKE MEDICATION OVER THE LAST 3 DAYS SHE DID NOT HAVE SYRINGES. PT WITH LIMITED EYE CONTACT DURING ASSESSMENT AND STATES I'M JUST REALLY TIRED. EDUCATED PT ON THE IMPORTANCE OF ATTENDING MEDICAL APPOINTMENTS AND TAKING MEDICATIONS. PT VERBALIZED UNDERSTANDING. PT STATES WILL HAVE TRANSPORTATION HOME UPON D/C BY VAN. PT VOICES NO OTHER NEEDS OR CONCERNS AT THIS TIME. CASE CONFERENCED WITH MANAGER CRISIS. PLAN: HOME WITH FAMILY BEFORE. KOBI GRAHAM, COIN COUNTER AND WRAPPER, ANCIENT ART CURATOR.
[2018-07-03 11:25] LABS: Bedside Glucose 363 mg/dL (70-110)
--- NOTE | 2018-07-03 13:00 | CASEMGMT ---
Addendum entered by Ras Cooper 07/03/18 15:54: Script obtained from Dr Weems for Glucometer and supplies and this was given to patient. She was made aware that [facility] will not pay for another one at this time d/t she just got one through them in August. Informed her that she can take the script to [facility] and also made aware she can buy at [facility] or could buy from [facility]. Pt states she is aware they sell them at [facility] and states she can afford to buy one. Dr Weems made aware that pt is requesting Levemir Pen and that, per her pharmacy, this will be covered under her insurance. Original Note: SARA NICOLE NOTE: Call placed to [facility]. *Pharmacist informed SARA NICOLE that pt just got a glucometer in Aug of this year through [facility] and that [facility] is [email or web address] *Inquired about Levemir Pen. Pharmacist states it would be covered under pt's insurance. Melissa MEAD RN CM
--- NOTE | 2018-07-03 13:22 | CHAPLAIN ---
Type of Pastoral Visit _x__ Initial Visit ___ Follow-up Visit ___ On-call Visit ___ General Patient Visit ___ Spiritual Assessment ___ Family Conference ___ Bereavement ___ Rapid Response ___ Code Blue ___ Other (describe below) Pastoral Care Referral From _x__ Patient ___ Family ___ Nurse ___ Physician ___ Auto Body Repair Teacher ___ Labor Relations Manager ___ Other (describe below) Sacrament/Intervention _x__ Active listening ___ Anointing ___ Episcopalian ___ Bereavement ___ Communion ___ Lyn exploration ___ ___ Life review ___ Prayer ___ Reconciliation ___ Sacrament of Sick ___ Supportive presence ___ Wedding ___ Other (describe below) Pastoral Comments
[2018-07-03 13:36] LABS: Anion Gap 8 (5-15); BUN 7 mg/dL (7-18); BUN/Creat Ratio 10.4 RATIO (10-20); Calcium,Total 8.6 mg/dL (8.5-10.1); Chloride 105 mmol/L (98-107); Creatinine, Serum 0.67 mg/dL (0.55-1.02); EST Glomerular Filtration Rate 118 mL/min (>60); Est Glom Filt Rate - Afr Amer 143 mL/min (>60); Estimated Creatinine Clearance 119.25 ml/min; Glucose 345 mg/dL (74-106); Potassium 3.8 mmol/L (3.5-5.1); Sodium Level 135 mmol/L (136-145)
[2018-07-03 16:46] LABS: Bedside Glucose 248 mg/dL (70-110)
[2018-07-03] MEDS: 0.9% Normal Saline 1,000 ML 100 ML IV (20:24)
[2018-07-03 22:21] LABS: Bedside Glucose 338 mg/dL (70-110)
[2018-07-04 02:40] VITALS: BP 118/63; PULSE 88; RESP 16; TEMP 36.9; O2SAT 100
[2018-07-04 03:59] VITALS: PULSE 71
[2018-07-04] MEDS: 0.9% Normal Saline 1,000 ML 100 ML IV (06:08)
[2018-07-04] MEDS: Dicyclomine 10 MG Capsule 20 MG PO ×2 (06:14→10:52)
[2018-07-04] MEDS: Insulin Lispro 100 UNIT/ML INSULN.PEN SC ×2 (06:46→11:17)
[2018-07-04 06:51] LABS: Bedside Glucose 215 mg/dL (70-110)
[2018-07-04 06:52] LABS: Absolute Lymphocyte Count 1.29 X10^3/ul (0.83-4.51); Basophil# 0.01 X10^3/uL; Basophil% 0.2 % (0-1); Eosinophil# 0.02 X10^3/uL; Eosinophils% 0.4 % (0-5); Hematocrit 35.5 % (37-47); Hemoglobin 12.4 g/dl (12.0-15.0); Lymphocyte # 1.29 X10^3/ul (4.0); Lymphocyte % 22.6 % (19-41); Mean Corp Hgb Conc 34.9 g/gl (32-36); Mean Corpuscular Hgb 28.5 pg (27.0-32.0); Mean Corpuscular Volume 81.6 fL (81-99); Mean Platelet Vol. 8.8 fl (6.2-12.0); Monocyte# 0.38 X10^3/uL; Monocyte% 6.7 % (0-10); Neutrophil # 3.99 X10^3/uL (2.7-7.7); Neutrophil % 69.7 % (47-70); Platelet Count 300 K/mm3 (150-450); RBC Distribution Width CV 13.4 % (11.6-14.6); RBC Distribution Width SD 38.4 fl (35.1-43.9); Red Blood Count 4.35 M/mm3 (4.2-5.4); White Blood Count 5.7 K/mm3 (4.4-11.0)
[2018-07-04 06:58] LABS: POSITIVE COUNT NO; POSITIVE DIFFERENTIAL NO; POSITIVE MORPHOLOGY NO
[2018-07-04 07:00] VITALS: PULSE 70
[2018-07-04 07:02] LABS: Anion Gap 10 (5-15); BUN 6 mg/dL (7-18); BUN/Creat Ratio 9.9 RATIO (10-20); Calcium,Total 7.9 mg/dL (8.5-10.1); Chloride 110 mmol/L (98-107); Creatinine, Serum 0.61 mg/dL (0.55-1.02); EST Glomerular Filtration Rate 134 mL/min (>60); Est Glom Filt Rate - Afr Amer 162 mL/min (>60); Glucose 201 mg/dL (74-106); Potassium 2.9 mmol/L (3.5-5.1); Sodium Level 142 mmol/L (136-145)
--- NOTE | 2018-07-04 07:44 | DCINST_ITS ---
- Discharge Diagnoses Current Active Problems: Current Active and Chronic Problems (Last Reviewed 10/15/17 @ 11:21 by Adriana Mulligan) DKA (diabetic ketoacidoses) (Acute) Reason(s) for Visit for Discharge Instructions: Acute DKA You will use the following diet at home:: Calorie/Carbohydrate Controlled (specify 1200, 1400, etc) Your food should be the consistency of: Regular Your liquids should be the consistency of: Regular/Thin Discharge Activity: Return to Normal Activity Allergies/Adverse Reactions: Allergies Egg Derived Allergy (Verified 07/02/18 09:42) Other Penicillins Allergy (Verified 07/02/18 09:42) Unknown Sulfa (Sulfonamide Antibiotics) Allergy (Verified 07/02/18 09:42) Unknown milk Adverse Reaction (Verified 07/02/18 09:42) Diarrhea prednisone Adverse Reaction (Verified 07/02/18 09:42) Vomiting bee stings Allergy (Severe, Uncoded 07/02/18 09:42) Unknown Medications to take at Discharge Albuterol Inhaler [Ventolin Hfa] 1 - 2 puff INHALATION Q6H PRN PRN 07/05/15 Epinephrine [Epi Pen] 0.3 mg IM X1 #1 syringe 02/09/17 etonogestrel 68 mg subdermal implant 1 implant SUBDERMAL ONCE 07/03/17 glucagon (human recombinant) 1 mg injection kit 1 mg IM ONCE 07/03/17 insulin aspart U- 100 100 unit/mL subcutaneous pen See Rx Instructions SC TID #120 ml 11/24/17 Cetirizine HCl [Zyrtec] 10 mg PO DAILY 04/01/18 Dicyclomine HCl [Bentyl] 20 mg PO TIDAC #20 cap 06/29/18 Insulin Detemir [Levemir] 80 unit SC QHS 06/29/18 Syringe and Needle,Insulin,1Ml [Techlite Insulin Syringe] 0 unit .ROUTE .MEDSUPPLY 06/29/18 Insulin Glargine [Lantus SoloStar Pen] 40 units SC BID #1 pen 07/04/18 The following prescriptions were given: Insulin Glargine [Lantus SoloStar Pen] 40 units SC BID #1 pen Orders to be completed after discharge: Basic Metabolic Profile (BMP) Time Frame: 2 Days, Location: Laboratory Primary Care Physician: Martin Baldwin MD [Primary Care Provider] - Please follow up with your Primary Care Physician in: within 1 week Test Results: Test results from this visit will be discussed in further detail at your follow- up appointment, if applicable. Please Follow Up With: RAULITO kan When: within 1-2 weeks Proposed Discharge Date: 07/04/18
[2018-07-04 08:08] LABS: Potassium 2.8 mmol/L (3.5-5.1)
--- NOTE | 2018-07-04 08:31 | PCM.DC.SUM ---
Discharge Date and Diagnosis - Problem List Patient Problems: Active and Suspected Problems (Last Reviewed 10/15/17 @ 11:21 by Adriana Mulligan) DKA (diabetic ketoacidoses) (Acute) Date of Admission: 07/02/18 Date of Discharge: 07/04/18 - Primary Discharge Diagnosis Active and Suspected Problems (Last Reviewed 10/15/17 @ 11:21 by Adrinaa Mulligan) DKA (diabetic ketoacidoses) (Acute) Hypokalemia - Secondary Discharge Diagnosis Chronic Problems (Last Reviewed 10/15/17 @ 11:21 by Adriana Mulligan) Type I diabetes mellitus (Chronic) Hospital Course and Treatment Imaging Results: Clinical Impression(s) from Imaging Studies Chest X-Ray 07/02/18 10:13 IMPRESSION: Normal x-ray examination of the chest. Electronically Signed: Akil Deutsch MD at 10:45 EST Tel [phone], Service support , Operations: None Procedures: None Summary of Care Provided: The patient is a 18 year old F with type I DM, who comes in with complaints of nausea vomiting abdominal pain and was found to have an acute DKA. Patient admits to missing her insulin for about 3 days. Was managed in the ICU on DKA protocol with improvement. Transition to the floor, started on her home insulin. Case management was consulted to assist with acquiring her maintenance insulin. She was found to be hypokalemic on the day of discharge, replaced, asked to follow-up in a couple of days for repeat blood work. Patient Problems: Active and Suspected Problems (Last Reviewed 10/15/17 @ 11:21 by Adriana Mulligan) DKA (diabetic ketoacidoses) (Acute) Subjective: The day of discharge, patient denied any complaints. Sidney improved. - Physical Exam General: Alert, Oriented x3, Cooperative, No apparent distress HEENT: Atraumatic, PERRLA, EOMI, Normocephalic Neck: Supple, No JVD, Negative Carotid Bruits Lungs: Clear to auscultation, Normal air movement Cardiovascular: Regular rate, Normal S1, Normal S2, No murmurs Abdomen: Bowel Sounds Present, Soft, Non Tender, Non-Distended, No Hepato-splenomegaly Extremities: No edema Skin: No rashes, No breakdown Musculoskeletal: No Tenderness to Palpation of Joints or Extremities Lymphatic: No Cervical, Supraclavicular, or Inguinal Adenopathy Neurological: Cranial nerves II-XII grossly intact, Neuro grossly intact Psych/Mental Status: Normal Affect, Appropriate Vital Signs Temp Pulse Resp BP Pulse Ox 98.5 F 70 16 118/63 100 07/04/18 02:40 07/04/18 07:00 07/04/18 02:40 07/04/18 02:40 07/04/18 02:40 Oxygen Delivery Method Room Air Weight: 57.7 kg Body Mass Index (BMI) 24.3 Finger Stick Blood Glucose 125 Intake and Output for Last 24 Hours 07/02/18 07/03/18 07/04/18 23:59 23:59 23:59 Intake Total 2160 / 2160 1973 / 1973 3949 / 3949 Output Total 1650 / 1650 1400 / 1400 2500 / 2500 Balance 510 / 510 574 / 574 1449 / 1449 Laboratory Tests Past 24 Hrs 07/03/18 07/03/18 07/04/18 08:35 12:20 06:32 WBC 5.7 RBC 4.35 Hgb 12.4 Hct 35.5 L MCV 81.6 MCH 28.5 MCHC 34.9 RDW 13.4 RDW Differential 38.4 Plt Count 300 MPV 8.8 Immature Gran % (Auto) 0.400 Neut % (Auto) 69.7 Lymph % (Auto) 22.6 [place] % (Auto) 6.7 Eos % (Auto) 0.4 Baso % (Auto) 0.2 Absolute Neuts (auto) 4.0 Absolute Lymphs (auto) 1.29 Total Counted Not Reportable Sodium 136 135 L Potassium 3.6 3.8 Chloride 106 105 Carbon Dioxide 17.0 L 22.0 Anion Gap 13 8 BUN 7 7 Creatinine 0.55 0.67 Estim Creat Clear Calc 145.27 119.25 Est GFR (MDRD) Af Amer 181 143 Est GFR (MDRD) Non-Af 150 118 BUN/Creatinine Ratio 12.8 10.4 Glucose 274 H 345 H Calcium 8.1 L 8.6 07/04/18 07/04/18 06:32 07:54 WBC RBC Hgb Hct MCV MCH MCHC RDW RDW Differential Plt Count MPV Immature Gran % (Auto) Neut % (Auto) Lymph % (Auto) [place] % (Auto) Eos % (Auto) Baso % (Auto) Absolute Neuts (auto) Absolute Lymphs (auto) Total Counted Sodium 142 Potassium 2.9 L 2.8 L Chloride 110 H Carbon Dioxide 22.0 Anion Gap 10 BUN 6 L Creatinine 0.61 Estim Creat Clear Calc 134.00 Est GFR (MDRD) Af Amer 162 Est GFR (MDRD) Non-Af 134 BUN/Creatinine Ratio 9.9 L Glucose 201 H Calcium 7.9 L POC Glucose 07/04/18 07/03/18 07/03/18 06:45 22:09 16:25 POC Glucose 215 H 338 H 248 H 07/03/18 11:22 POC Glucose 363 H Discharge Diet: 2200 Calorie Control Diet Discharge Activity: Return to Normal Activity Home Medications: Medications to take at Discharge Albuterol Inhaler [Ventolin Hfa] 1 - 2 puff INHALATION Q6H PRN PRN 07/05/15 Epinephrine [Epi Pen] 0.3 mg IM X1 #1 syringe 02/09/17 etonogestrel 68 mg subdermal implant 1 implant SUBDERMAL ONCE 07/03/17 glucagon (human recombinant) 1 mg injection kit 1 mg IM ONCE 07/03/17 insulin aspart U- 100 100 unit/mL subcutaneous pen See Rx Instructions SC TID #120 ml 11/24/17 Cetirizine HCl [Zyrtec] 10 mg PO DAILY 04/01/18 Dicyclomine HCl [Bentyl] 20 mg PO TIDAC #20 cap 06/29/18 Insulin Detemir [Levemir] 80 unit SC QHS 06/29/18 Syringe and Needle,Insulin,1Ml [Techlite Insulin Syringe] 0 unit .ROUTE .MEDSUPPLY 06/29/18 Insulin Glargine [Lantus SoloStar Pen] 40 units SC BID #1 pen 07/04/18 Following Prescrptions Were Given to Patient: Insulin Glargine [Lantus SoloStar Pen] 40 units SC BID #1 pen Other Amb Orders: Basic Metabolic Profile (BMP) Time Frame: 2 Days, Location: Laboratory Primary Care Physician: Martin Baldwin MD [Primary Care Provider] - Please follow up with your Primary Care Physician in: within 1 week Please Follow Up With: RAULITO kan When: within 1-2 weeks Disposition: Home Minutes spent on discharge:: 40 Patient Condition:: Stable Medical Necessity - Tobacco Use Smoking Status: Former smoker Tobacco Use: Non-smoker Meaningful Use Info Meaningful Use Diagnoses (Choose all that apply): None applicable Code Visit Inpatient E&M: 85685 Disch Hosp
[2018-07-04 08:40] VITALS: BP 118/78; PULSE 92; RESP 18; TEMP 36.3; O2SAT 99
[2018-07-04] MEDS: Loratadine 10 MG Tablet PO (08:54)
[2018-07-04 11:21] LABS: Bedside Glucose 154 mg/dL (70-110)
[2018-07-04 13:49] LABS: Anion Gap 8 (5-15); BUN 6 mg/dL (7-18); BUN/Creat Ratio 12.6 RATIO (10-20); Calcium,Total 8.5 mg/dL (8.5-10.1); Chloride 111 mmol/L (98-107); Creatinine, Serum 0.48 mg/dL (0.55-1.02); EST Glomerular Filtration Rate 177 mL/min (>60); Est Glom Filt Rate - Afr Amer 214 mL/min (>60); Glucose 158 mg/dL (74-106); Potassium 3.9 mmol/L (3.5-5.1); Sodium Level 143 mmol/L (136-145)
[2018-07-04 14:01] VITALS: BP 118/74; PULSE 85; RESP 18; TEMP 36.5; O2SAT 96
--- NOTE | 2018-07-06 15:40 | CASEMGMT ---
SARA NICOLE Discharge Follow-up Phone Call: COLLETTE: Sergio Strata: 4 Call Date: 07/06/18 Discharge Date: 07/04/18 Time of Call: 1540 Duration: 3 minutes ? Admitting Diagnosis: DKA This SARA NICOLE contacted pt via phone regarding discharge follow-up. Pt states she was able to obtain her insulin pen. States she has not made her follow-up calls with Dr. Baldwin or with RAULITO Sterling. Encouraged pt to call and make these appointments. Reminded pt to have her labs drawn. Pt states she has her order but has a sore throat and a runny nose and didn't feel like getting out today. States she has to work tomorrow. Encouraged pt to have her labs drawn and to make her follow-up appointments. Pt denied any questions or concerns and states she will contact Dr. Baldwin's or RAULITO Sterling's office if she does. Eva Crisostomo RN
--- OUTSIDE RECORDS SUMMARY | 2018-08-18 06:23 | XMS RPT_ITS ---
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 Chief Complaint: Abd Pain Instructions: ED Gastroenteritis Viral Prescriptions: Dicyclomine HCl [Bentyl] 20 mg PO TIDAC #20 cap Referrals: Martin Arellano MD [Primary Care Provider] - 3-5 Days if not improving What to do if you have Problems For any increased pain, shortness of breath, bleeding, nausea or vomiting, chest pain, or any unexpected problems, contact your Primary Care Provider. Call [facility] ([phone]) or report to the closest Emergency Room. Call 911 if necessary. 07/03/18 2239 <Electronically signed by Riley Carvalho DO> Date Riley Carvalho DO Cosigner Signature (If Indicated): Date CC: Martin Arellano MD BEDSIDE GLUCOSE Collected: 07/03/2018 Status: F Source: DONTA 10:09 PM [facility] REPOSITORY TYPE CODE TESTS RESULT OUT OF REFERENCE UNITS RANGE LAB L501.080 70-110 mg/dL High BEDSIDE GLU 338 Result Comment: MANAGEMENT OF PATIENT CARE PER NURSING PROTOCOL Performed By: #### L501.080 #### [facility] Point of Care [address] [place] [address] BEDSIDE GLUCOSE Collected: 07/03/2018 Status: F Source: DONTA 4:25 PM [facility] REPOSITORY TYPE CODE TESTS RESULT OUT OF REFERENCE UNITS RANGE LAB L501.080 70-110 mg/dL High BEDSIDE GLU 248 Result Comment: MANAGEMENT OF PATIENT CARE PER NURSING PROTOCOL Performed By: #### L501.080 #### [facility] Point of Care [address] [place] [address] BASIC METABOLIC Collected: 07/03/2018 Status: F Source: DONTA PROFILE (BMP) 12:20 PM [facility] REPOSITORY Order Comment: Comments: Call MD with results STAT TYPE CODE TESTS RESULT OUT OF RANGE REFERENCE UNITS LAB L501.0100 74-106 mg/dL High GLU 345 Result Comment: Glucose result greater than or equal to 200 mg/dL suggests DIABETES MELLITUS per A.D.A. criteria. Please note revised GLUCOSE reference range effective 2017. LAB L501.1000 7-18 mg/dL Normal BUN 7 LAB L501.1100 0.55-1.02 mg/dL Normal CREAT,SERUM 0.67 Result Comment: The validity of the calculated GFR AND GFRAA in patients over 70 years has not been determined. Clinical correlation is essential. LAB L501.1110 >60 mL/min Normal EST GFR 118 Result Comment: Non- GFR Calc LAB L501.1115 >60 mL/min Normal EST GFR - AA 143 Result Comment: GFR Calc LAB L501.1255 ml/min Normal Estimated CRCL 119.25 LAB L501.1300 10-20 RATIO BUN/CRE Normal 10.4 LAB L501.2200 8.5-10 mg/dL .1 CA Normal 8.6 LAB L501.5300 136-14 mmol/L Low 5 NA 135 LAB L501.5600 3.5-5. mmol/L 1 K Normal 3.8 LAB L501.5900 98-107 mmol/L CL Normal 105 LAB L501.6100 21.0-3 mmol/L 2.0 CO2 Normal 22.0 LAB L501.6200 5-15 GAP Normal 8 Performed By: #### L500.2500 #### [facility] [address] [place], [address] 12 LEAD ELECTROCARDIOGRAM Observed: 07/03/2018 Status: F Source: DONTA 11:54 AM [facility] REPOSITORY [facility] Cardiovascular Services [address] [place] [address] 12 Lead EKG 07/02/18 1026 MR#: [id number] Acct: [id number] Name: HILDA DESIR Rep #: [id number] : 2000 18 From: Ricki Rodriguez MD Attending Dr: Mary Weems MD Status: ADM IN Ordering Dr: Fide Covington MD Date: 07/02/18 [place] [facility] [place]: F C Admitted: 07/02/18 Test Reason : Blood Pressure : / mmHG Vent. Rate : 110 BPM Atrial Rate : 110 BPM P-R Int : 122 ms QRS Dur : 078 ms QT Int : 352 ms P-R-T Axes : 068 081 042 degrees QTc Int : 476 ms Sinus tachycardia Otherwise normal ECG Confirmed by GREGORIA AGOSTO, RICKI ([id number]), video effects editor ROSHAN TRUJILLO ([id number]) on 07/03/2018 11:54:01 AM Referred By: Mary Weems Confirmed By:RICKI RODRIGUEZ MD 07/03/18 1154 Date Ricki Rodriguez MD CC: Martin Arellano MD; Mary Weems MD; FIDE COVINGTON MD Signed BEDSIDE GLUCOSE Collected: 07/03/2018 Status: F Source: DONTA 11:22 AM [facility] REPOSITORY TYPE CODE TESTS RESULT OUT OF REFERENCE UNITS RANGE LAB L501.080 70-110 mg/dL High BEDSIDE GLU 363 Result Comment: MANAGEMENT OF PATIENT CARE PER NURSING PROTOCOL Performed By: #### L501.080 #### [facility] Point of Care [address] [place] [address] BASIC METABOLIC Collected: 07/03/2018 Status: F Source: DONTA PROFILE (BMP) 8:35 AM [facility] REPOSITORY Order Comment: Comments: Call MD with results STAT TYPE CODE TESTS RESULT OUT OF RANGE REFERENCE UNITS LAB L501.0100 74-106 mg/dL High GLU 274 Result Comment: Glucose result greater than or equal to 200 mg/dL suggests DIABETES MELLITUS per A.D.A. criteria. Please note revised GLUCOSE reference range effective 2017. LAB L501.1000 7-18 mg/dL Normal BUN 7 LAB L501.1100 0.55-1.02 mg/dL Normal CREAT,SERUM 0.55 Result Comment: The validity of the calculated GFR AND GFRAA in patients over 70 years has not been determined. Clinical correlation is essential. LAB L501.1110 >60 mL/min Normal EST GFR 150 Result Comment: Non- GFR Calc LAB L501.1115 >60 mL/min Normal EST GFR - AA 181 Result Comment: GFR Calc LAB L501.1255 ml/min Normal Estimated CRCL 145.27 LAB L501.1300 10-20 RATIO BUN/CRE Normal 12.8 LAB L501.2200 8.5-10 mg/dL Low .1 CA 8.1 LAB L501.5300 136-14 mmol/L 5 NA Normal 136 LAB L501.5600 3.5-5. mmol/L 1 K Normal 3.6 LAB L501.5900 98-107 mmol/L CL Normal 106 LAB L501.6100 21.0-3 mmol/L Low 2.0 CO2 17.0 LAB L501.6200 5-15 GAP Normal 13 Performed By: #### L500.2500 #### [facility] [address] [place], [place], [address] BEDSIDE GLUCOSE Collected: 07/03/2018 Status: F Source: DONTA 6:28 AM [facility] REPOSITORY TYPE CODE TESTS RESULT OUT OF REFERENCE UNITS RANGE LAB L501.080 70-110 mg/dL High BEDSIDE GLU 243 Result Comment: MANAGEMENT OF PATIENT CARE PER NURSING PROTOCOL Performed By: #### L501.080 #### [facility] Point of Care [address] [place] [address] CBC W/DIFF, AUTOMATED Collected: 07/03/2018 Status: F Source: DONTA 4:30 AM [facility] REPOSITORY TYPE CODE TESTS RESULT OUT OF RANGE REFERENCE UNITS LAB L100.1000 4.4-11.0 K/mm3 High WBC 12.2 LAB L100.1200 4.2-5.4 M/mm3 Normal RBC 4.64 LAB L100.1300 12.0-15.0 g/dl Normal HGB 13.3 LAB L100.1400 37-47 % Normal HCT 37.6 LAB L100.1500 81-99 fL Normal MCV 81.0 LAB L100.1600 27.0-32.0 pg Normal MCH 28.7 LAB L100.1700 32-36 g/gl Normal MCHC 35.4 LAB L100.1810 11.6-14.6 % Normal RDW CV 13.5 LAB L100.1820 35.1-43.9 fl Normal RDW SD 38.6 LAB L100.1900 150-450 K/mm3 Normal PLT 373 LAB L100.2000 6.2-12.0 fl Normal MPV 9.1 LAB L100.2100 47-70 % High NEUT% 82.4 LAB L100.2200 19-41 % Low LY% 12.0 LAB L100.2300 0-10 % Normal MONO% 4.7 LAB L100.2400 0-5 % Normal EO% 0.5 LAB L100.2500 0-1 % Normal BASO% 0.2 LAB L100.2550 0.0-0.9 % Normal IM GRAN % 0.200 Result Comment: IG% - Immature Granulocytes (promyelocytes, myelocytes and metamyelocytes) > 1% indicates that a LEFT SHIFT is Present. LAB L100.2620 2.0-7.7 X10 3/uL High Absolute Neut 10.1 LAB L100.2720 0.83-4.51 X10 3/ul Normal Absolute Lymph 1.46 Performed By: #### L100.0100 #### [facility] [address] [place], [place], [address] BASIC METABOLIC Collected: 07/03/2018 Status: F Source: DON[place] PROFILE (BMP) 4:30 AM [facility] REPOSITORY TYPE CODE TESTS RESULT OUT OF RANGE REFERENCE UNITS LAB L501.0100 74-106 mg/dL High GLU 297 Result Comment: Glucose result greater than or equal to 200 mg/dL suggests DIABETES MELLITUS per A.D.A. criteria. Please note revised GLUCOSE reference range effective 2017. LAB L501.1000 7-18 mg/dL Normal BUN 9 LAB L501.1100 0.55-1.02 mg/dL Normal CREAT,SERUM 0.56 Result Comment: The validity of the calculated GFR AND GFRAA in patients over 70 years has not been determined. Clinical correlation is essential. LAB L501.1110 >60 mL/min Normal EST GFR 147 Result Comment: Non- GFR Calc LAB L501.1115 >60 mL/min Normal EST GFR - AA 178 Result Comment: GFR Calc LAB L501.1255 ml/min Normal Estimated CRCL 138.38 LAB L501.1300 10-20 RATIO BUN/CRE Normal 16.1 LAB L501.2200 8.5-10 mg/dL Low .1 CA 7.9 LAB L501.5300 136-14 mmol/L 5 NA Normal 137 LAB L501.5600 3.5-5. mmol/L 1 K Normal 3.7 LAB L501.5900 98-107 mmol/L CL Normal 107 LAB L501.6100 21.0-3 mmol/L Low 2.0 CO2 16.0 LAB L501.6200 5-15 GAP Normal 14 Performed By: #### L500.2500 #### [facility] [address], [place], [address] BEDSIDE GLUCOSE Collected: 07/03/2018 Status: F Source: DONTA 4:24 AM [facility] REPOSITORY TYPE CODE TESTS RESULT OUT OF REFERENCE UNITS RANGE LAB L501.080 70-110 mg/dL High BEDSIDE GLU 301 Result Comment: MANAGEMENT OF PATIENT CARE PER NURSING PROTOCOL Performed By: #### L501.080 #### [facility] Point of Care [address] [facility] [place], [place] [address] BASIC METABOLIC Collected: 07/03/2018 Status: F Source: DONTA PROFILE (BMP) 2:25 AM [facility] REPOSITORY Order Comment: Comments: Call MD with results STAT TYPE CODE TESTS RESULT OUT OF RANGE REFERENCE UNITS LAB L501.0100 74-106 mg/dL High GLU 336 Result Comment: Glucose result greater than or equal to 200 mg/dL suggests DIABETES MELLITUS per A.D.A. criteria. Please note revised GLUCOSE reference range effective 2017. LAB L501.1000 7-18 mg/dL Normal BUN 10 LAB L501.1100 0.55-1.02 mg/dL Low CREAT,SERUM 0.52 Result Comment: The validity of the calculated GFR AND GFRAA in patients over 70 years has not been determined. Clinical correlation is essential. LAB L501.1110 >60 mL/min Normal EST GFR 160 Result Comment: Non- GFR Calc LAB L501.1115 >60 mL/min Normal EST GFR - AA 193 Result Comment: GFR Calc LAB L501.1255 ml/min Normal Estimated CRCL 149.02 LAB L501.1300 10-20 RATIO BUN/CRE Normal 19.3 LAB L501.2200 8.5-10 mg/dL Low .1 CA 7.8 LAB L501.5300 136-14 mmol/L Low 5 NA 135 LAB L501.5600 3.5-5. mmol/L 1 K Normal 3.8 LAB L501.5900 98-107 mmol/L CL Normal 107 LAB L501.6100 21.0-3 mmol/L Low 2.0 CO2 17.0 LAB L501.6200 5-15 GAP Normal 11 Performed By: #### L500.2500 #### [facility] [address], [place], [id number] BEDSIDE GLUCOSE Collected: 07/03/2018 Status: F Source: DONTA 2:20 AM [facility] REPOSITORY TYPE CODE TESTS RESULT OUT OF REFERENCE UNITS RANGE LAB L501.080 70-110 mg/dL High BEDSIDE GLU 320 Result Comment: MANAGEMENT OF PATIENT CARE PER NURSING PROTOCOL Performed By: #### L501.080 #### [facility] Point of Care [address] [facility] [place], [place] [address] BEDSIDE GLUCOSE Collected: 07/03/2018 Status: F Source: DONTA 12:48 AM [facility] REPOSITORY TYPE CODE TESTS RESULT OUT OF REFERENCE UNITS RANGE LAB L501.080 70-110 mg/dL High BEDSIDE GLU 242 Result Comment: MANAGEMENT OF PATIENT CARE PER NURSING PROTOCOL Performed By: #### L501.080 #### [facility] Point of Care [address] [place] [address] BEDSIDE GLUCOSE Collected: 07/02/2018 Status: F Source: DONTA 11:43 PM [facility] REPOSITORY TYPE CODE TESTS RESULT OUT OF REFERENCE UNITS RANGE LAB L501.080 70-110 mg/dL High BEDSIDE GLU 125 Result Comment: MANAGEMENT OF PATIENT CARE PER NURSING PROTOCOL Performed By: #### L501.080 #### [facility] Point of Care [address] [place] [address] BEDSIDE GLUCOSE Collected: 07/02/2018 Status: F Source: DONTA 10:49 PM [facility] REPOSITORY TYPE CODE TESTS RESULT OUT OF RANGE REFERENCE UNITS LAB L501.080 70-110 mg/dL Normal BEDSIDE GLU 96 Result Comment: MANAGEMENT OF PATIENT CARE PER NURSING PROTOCOL Performed By: #### L501.080 #### [facility] Point of Care [address] [place] [address] BASIC METABOLIC Collected: 07/02/2018 Status: F Source: DONTA PROFILE (BMP) 10:00 PM [facility] REPOSITORY Order Comment: Comments: Call MD with results STAT TYPE CODE TESTS RESULT OUT OF RANGE REFERENCE UNITS LAB L501.0100 74-106 mg/dL High GLU 116 Result Comment: Fasting Glucose result from 100 to 125 mg/dL suggests IMPAIRED HOMEOSTASIS per A.D.A. criteria. Please note revised GLUCOSE reference range effective 2017. LAB L501.1000 7-18 mg/dL Normal BUN 8 LAB L501.1100 0.55-1.02 mg/dL Low CREAT,SERUM 0.53 Result Comment: The validity of the calculated GFR AND GFRAA in patients over 70 years has not been determined. Clinical correlation is essential. LAB L501.1110 >60 mL/min Normal EST GFR 157 Result Comment: Non- GFR Calc LAB L501.1115 >60 mL/min Normal EST GFR - AA 190 Result Comment: GFR Calc LAB L501.1255 ml/min Normal Estimated CRCL 146.21 LAB L501.1300 10-20 RATIO BUN/CRE Normal 15.2 LAB L501.2200 8.5-10 mg/dL Low .1 CA 7.7 LAB L501.5300 136-14 mmol/L 5 NA Normal 138 LAB L501.5600 3.5-5. mmol/L 1 K Normal 3.5 LAB L501.5900 98-107 mmol/L High CL 112 LAB L501.6100 21.0-3 mmol/L Low 2.0 CO2 19.0 LAB L501.6200 5-15 GAP Normal 7 Performed By: #### L500.2500 #### [facility] [address] [facility] [address] BEDSIDE GLUCOSE Collected: 07/02/2018 Status: F Source: DONTA 9:38 PM [facility] REPOSITORY TYPE CODE TESTS RESULT OUT OF REFERENCE UNITS RANGE LAB L501.080 70-110 mg/dL High BEDSIDE GLU 115 Result Comment: MANAGEMENT OF PATIENT CARE PER NURSING PROTOCOL Performed By: #### L501.080 #### [facility] Point of Care [address] [facility] [place] [address] BEDSIDE GLUCOSE Collected: 07/02/2018 Status: F Source: DONTA 8:37 PM [facility] REPOSITORY TYPE CODE TESTS RESULT OUT OF REFERENCE UNITS RANGE LAB L501.080 70-110 mg/dL High BEDSIDE GLU 137 Result Comment: MANAGEMENT OF PATIENT CARE PER NURSING PROTOCOL Performed By: #### L501.080 #### [facility] Point of Care [address] [place] [address] BEDSIDE GLUCOSE Collected: 07/02/2018 Status: F Source: DONTA 7:35 PM [facility] REPOSITORY TYPE CODE TESTS RESULT OUT OF REFERENCE UNITS RANGE LAB L501.080 70-110 mg/dL High BEDSIDE GLU 136 Result Comment: MANAGEMENT OF PATIENT CARE PER NURSING PROTOCOL Performed By: #### L501.080 #### [facility] Point of Care [address] [place] [address] BEDSIDE GLUCOSE Collected: 07/02/2018 Status: F Source: DONTA 6:31 PM [facility] REPOSITORY TYPE CODE TESTS RESULT OUT OF REFERENCE UNITS RANGE LAB L501.080 70-110 mg/dL High BEDSIDE GLU 148 Result Comment: MANAGEMENT OF PATIENT CARE PER NURSING PROTOCOL Performed By: #### L501.080 #### [facility] Point of Care [address] [place] [address] BASIC METABOLIC Collected: 07/02/2018 Status: F Source: DONTA PROFILE (BMP) 6:00 PM [facility] REPOSITORY TYPE CODE TESTS RESULT OUT OF RANGE REFERENCE UNITS LAB L501.0100 74-106 mg/dL High GLU 164 Result Comment: Fasting Glucose result greater than or equal to 126 mg/dL suggests DIABETES MELLITUS per A.D.A. criteria. Please note revised GLUCOSE reference range effective 2017. LAB L501.1000 7-18 mg/dL Normal BUN 9 LAB L501.1100 0.55-1.02 mg/dL Low CREAT,SERUM 0.50 Result Comment: The validity of the calculated GFR AND GFRAA in patients over 70 years has not been determined. Clinical correlation is essential. LAB L501.1110 >60 mL/min Normal EST GFR 168 Result Comment: Non- GFR Calc LAB L501.1115 >60 mL/min Normal EST GFR - AA 204 Result Comment: GFR Calc LAB L501.1255 ml/min Normal Estimated CRCL 154.98 LAB L501.1300 10-20 RATIO BUN/CRE Normal 18.1 LAB L501.2200 8.5-10 mg/dL Low .1 CA 7.7 LAB L501.5300 136-14 mmol/L 5 NA Normal 138 LAB L501.5600 3.5-5. mmol/L 1 K Normal 3.5 LAB L501.5900 98-107 mmol/L High CL 112 LAB L501.6100 21.0-3 mmol/L Low 2.0 CO2 17.0 LAB L501.6200 5-15 GAP Normal 9 Performed By: #### L500.2500, L501.2300, L501.5200 #### [facility] [address] [place], [address] PHOSPHORUS Collected: 07/02/2018 Status: F Source: DONTA 6:00 PM [facility] REPOSITORY TYPE CODE TESTS RESULT OUT OF RANGE REFERENCE UNITS LAB L501.2300 2.5-4.9 mg/dL Low PHOS 2.1 Performed By: #### L500.2500, L501.2300, L501.5200 #### [facility] [address] [place], [address] MAGNESIUM Collected: 07/02/2018 Status: F Source: DONTA 6:00 PM [facility] REPOSITORY TYPE CODE TESTS RESULT OUT OF RANGE REFERENCE UNITS LAB L501.5200 1.6-2.6 mg/dL Normal MG 1.7 Performed By: #### L500.2500, L501.2300, L501.5200 #### [facility] [address] [place], [address] BEDSIDE GLUCOSE Collected: 07/02/2018 Status: F Source: [place] 5:34 PM [facility] REPOSITORY TYPE CODE TESTS RESULT OUT OF REFERENCE UNITS RANGE LAB L501.080 70-110 mg/dL High BEDSIDE GLU 154 Result Comment: MANAGEMENT OF PATIENT CARE PER NURSING PROTOCOL Performed By: #### L501.080 #### [facility] Point of Care [address] [place] [address] BEDSIDE GLUCOSE Collected: 07/02/2018 Status: F Source: DONTA 4:35 PM [facility] REPOSITORY TYPE CODE TESTS RESULT OUT OF REFERENCE UNITS RANGE LAB L501.080 70-110 mg/dL High BEDSIDE GLU 159 Result Comment: Dr Andino Followed MANAGEMENT OF PATIENT CARE PER NURSING PROTOCOL Performed By: #### L501.080 #### [facility] Point of Care [address] [place] [address] BEDSIDE GLUCOSE Collected: 07/02/2018 Status: F Source: DONTA 3:34 PM [facility] REPOSITORY TYPE CODE TESTS RESULT OUT OF REFERENCE UNITS RANGE LAB L501.080 70-110 mg/dL High BEDSIDE GLU 191 Result Comment: MANAGEMENT OF PATIENT CARE PER NURSING PROTOCOL Performed By: #### L501.080 #### [facility] Point of Care [address] [place] [address] BEDSIDE GLUCOSE Collected: 07/02/2018 Status: F Source: DONTA 2:35 PM [facility] REPOSITORY TYPE CODE TESTS RESULT OUT OF REFERENCE UNITS RANGE LAB L501.080 70-110 mg/dL High BEDSIDE GLU 174 Result Comment: MANAGEMENT OF PATIENT CARE PER NURSING PROTOCOL Performed By: #### L501.080 #### [facility] Point of Care [address] [place] [address] BASIC METABOLIC Collected: 07/02/2018 Status: F Source: DONTA PROFILE (BMP) 1:30 PM [facility] REPOSITORY Order Comment: Comments: Call MD with results STAT TYPE CODE TESTS RESULT OUT OF RANGE REFERENCE UNITS LAB L501.0100 74-106 mg/dL High GLU 195 Result Comment: Fasting Glucose result greater than or equal to 126 mg/dL suggests DIABETES MELLITUS per A.D.A. criteria. Please note revised GLUCOSE reference range effective 2017. LAB L501.1000 7-18 mg/dL Normal BUN 12 LAB L501.1100 0.55-1.02 mg/dL Normal CREAT,SERUM 0.64 Result Comment: The validity of the calculated GFR AND GFRAA in patients over 70 years has not been determined. Clinical correlation is essential. LAB L501.1110 >60 mL/min Normal EST GFR 125 Result Comment: Non- GFR Calc LAB L501.1115 >60 mL/min Normal EST GFR - AA 152 Result Comment: GFR Calc LAB L501.1255 ml/min Normal Estimated CRCL 121.08 LAB L501.1300 10-20 RATIO BUN/CRE Normal 18.8 LAB L501.2200 8.5-10 mg/dL Low .1 CA 7.8 LAB L501.5300 136-14 mmol/L 5 NA Normal 141 LAB L501.5600 3.5-5. mmol/L 1 K Normal 4.3 Result Comment: Slight Hemolysis, Result may be falsely increased. LAB L501.5900 98-107 mmol/L High CL 113 LAB L501.6100 21.0-32.0 mmol/L Low CO2 12.0 LAB L501.6200 5-15 High GAP 16 Performed By: #### L500.2500 #### [facility] [address] [place], [address] HEMOGLOBIN A1C Collected: 07/02/2018 Status: F Source: [place] 1:30 PM [facility] REPOSITORY Order Comment: Comments: as an add on test TYPE CODE TESTS RESULT OUT OF RANGE REFERENCE UNITS LAB L501.9985 4.2-6.3 % High HGB A1C 11.0 Performed By: #### L501.9985 #### [facility] [address] [place], [address] PHOSPHORUS Collected: 07/02/2018 Status: F Source: [place] 1:30 PM [facility] REPOSITORY TYPE CODE TESTS RESULT OUT OF RANGE REFERENCE UNITS LAB L501.2300 2.5-4.9 mg/dL Normal PHOS 2.5 Performed By: #### L501.2300, L501.5200 #### [facility] [address] [place], [address] MAGNESIUM Collected: 07/02/2018 Status: F Source: [place] 1:30 PM [facility] REPOSITORY TYPE CODE TESTS RESULT OUT OF RANGE REFERENCE UNITS LAB L501.5200 1.6-2.6 mg/dL Normal MG 1.8 Result Comment: Slight Hemolysis, Result may be falsely increased. Performed By: #### L501.2300, L501.5200 #### [facility] [address] [facility] [place], [address] BEDSIDE GLUCOSE Collected: 07/02/2018 Status: F Source: [place] 1:28 PM [facility] REPOSITORY TYPE CODE TESTS RESULT OUT OF REFERENCE UNITS RANGE LAB L501.080 70-110 mg/dL High BEDSIDE GLU 183 Result Comment: Dr Andino Followed MANAGEMENT OF PATIENT CARE PER NURSING PROTOCOL Performed By: #### L501.080 #### [facility] Point of Care [address] [place] [address] HISTORY AND PHYSICAL Observed: 07/02/2018 Status: F Source: [place] EXAM 12:[address] [facility] Medical Records Department [address] [place], [place] [address] [address] History and Physical 07/02/18 1136 MR#: [id number] Acct: [id number] Name: HILDA DESIR Rep #: [id number] : 2000 18 From: Mary Weems MD PCP: Martin Arellano MD Status: ADM IN Y Location: ICU ICU03-1 Problem List (1) DKA (diabetic ketoacidoses) Status: Acute Qualifiers: Diabetes mellitus type: type 1 Diabetes mellitus complication detail: without coma Qualified Code(s): E10.10 - Type 1 diabetes mellitus with ketoacidosis without coma (2) Type I diabetes mellitus Status: Chronic Qualifiers: Diabetes mellitus complication status: without complication Qualified Code(s): E10.9 - Type 1 diabetes mellitus without complications History of Present Illness Date of Admission: 07/02/18 Chief Complaint: Nausea, vomiting, abdominal pain - 3 days The patient is a 18 year old F with past medical history of type I DM, follows up with endocrinology in the outpatient, comes in with complaints of abdominal pain, nausea, vomiting, ongoing for the past 3 days. Patient has not been taking his Levemir insulin because she ran out of salcido to get her insulin. She presented to the emergency department with the above and headaches 3 days ago, received some IV fluids, improved and was discharged. She denied any fever or chills or shortness of breath or diarrhea. At the time of being examined, abdominal pain was gone, she feels less nauseous, starting to feel better. Vitals in the ED show temperature 97.8 F, heart rate 87, blood pressure 126/70, respiratory 16, SPO2 97% on room air. Blood work shows RBC count of 14.2, Hb 15.7, platelet count was 371. BMP shows sodium 134, potassium 4.1, chloride 104, bicarbonate 12, anion gap was 18, BUN 14, creatinine 0.64, blood sugar was 372. VBG shows pH of 7.16, PO2 was 48 PCO2 was 29.6 Admitting chest x-ray showed no acute coronary process. Past Medical History Past Medical History (Chronic Problems): Chronic Problems (Last Reviewed 10/15/17 @ 11:21 by Adriana Mulligan) Type I diabetes mellitus (Chronic) Medical History: Medical History (Last Reviewed 10/15/17 @ 11:21 by Adriana Mulligan) Asthma J45.909 Diabetes type 1, controlled E10.9 Dx : age 8 Last exacerbation : DKA : 2016 Hypoglycemic episode : never ER visit : 2016 Allergies Egg Derived Allergy (Verified 07/02/18 09:42) Other Penicillins Allergy (Verified 07/02/18 09:42) Unknown Sulfa (Sulfonamide Antibiotics) Allergy (Verified 07/02/18 09:42) Unknown milk Adverse Reaction (Verified 07/02/18 09:42) Diarrhea prednisone Adverse Reaction (Verified 07/02/18 09:42) Vomiting bee stings Allergy (Severe, Uncoded 07/02/18 09:42) Unknown Home Medications: Ambulatory Orders Medication Instructions Recorded Albuterol Inhaler [Ventolin Hfa 1 - 2 puff INHALATION Q6H PRN PRN 07/05/15 Surgical History: Surgical History (Last Reviewed 10/15/17 @ 11:21 by Adriana Mulligan) History of placement of ear tubes Z86.69 Surgical History: tonsillectomy, - - status post control insertion Psychiatric History: No pertinent psych hx 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 Denies: Chills, Fever, Weight Change Eyes: Denies: Blurred vision, Cataracts, Conjunctivae Inflammation, Double vision, Pain, Redness, Vision Change HEENT: Denies: Difficulty Hearing, Difficulty Swallowing, Head Aches, Hearing Changes, Sinus Congestion, Sinus Drainage, Sore Throat Cardiovascular: Denies: Chest Pain, Claudication, Orthopnea, Palpitations Respiratory: Denies: Cough, Hemoptysis, Shortness of breath at rest, Shortness of breath upon exertion, Sputum production Gastrointestinal: Reports: Abdominal Pain, Nausea, Vomiting Genitourinary: Denies: Dysuria, Frequency, Incontinence, Nocturia, Retention Gynecological: Denies: Breast symptoms, Excessively long or heavy periods, Sexual concerns, Vaginal bleeding Musculoskeletal: Denies: Joint Pain, Joint stiffness, Joint swelling, Joint Tenderness Skin: Denies: Pruritis, Rash, Wounds Neurological: Denies: Numbness, Tingling, Focal weakness Psychiatric: Denies: Anxiety, Depression, Homicidal Ideations, Suicidal Ideations Hematologic/ Lymphatic: Denies: Easy Bruising, Easy Bleeding VTE Information - Inpt Only VTE Present on Admission: No VTE Pharm Prophylaxis ordered?: Yes Patient Problems: Active and Suspected Problems (Last Reviewed 10/15/17 @ 11:21 by Adriana Mulligan) DKA (diabetic ketoacidoses) (Acute) - Physical Exam General: Alert, Oriented x3, Cooperative, No apparent distress HEENT: Atraumatic, PERRLA, EOMI, Normocephalic Oral: Dry Mucosa - tongue ring present Neck: Supple, No JVD, Negative Carotid Bruits Lungs: Clear to auscultation, Normal air movement Cardiovascular: Regular rate, Regular Rhythm, Normal S1, Normal S2, No murmurs Abdomen: Bowel Sounds Present, Soft, Non Tender, Non-Distended, No Hepato-splenomegaly Extremities: No edema Skin: No rashes, No breakdown Musculoskeletal: No Tenderness to Palpation of Joints or Extremities Lymphatic: No Cervical, Supraclavicular, or Inguinal Adenopathy Neurological: Cranial nerves II-XII grossly intact, Neuro grossly intact Psych/Mental Status: Normal Affect, Appropriate Vital Signs Temp Pulse Resp BP Pulse Ox 99.1 F 128 H 16 125/74 H 98 07/02/18 09:43 07/02/18 09:43 07/02/18 09:43 07/02/18 09:43 07/02/18 09:43 Oxygen Delivery Method Room Air Weight: 53.3 kg Body Mass Index (BMI) 23.7 Finger Stick Blood Glucose 229 Laboratory Tests Past 24 Hrs WBC 14.2 H RBC 5.53 H Hgb 15.7 H WBC RBC Hgb Hct MCV MCH MCHC RDW RDW Differential Plt Count Assessment/Plan All Active Problems (Last Reviewed 10/15/17 @ 11:21 by Adriana Mulligan) DKA (diabetic ketoacidoses) (Acute) 18 year old F with past medical history of type I DM, follows up with endocrinology in the outpatient, comes in with complaints of abdominal pain, nausea, vomiting, ongoing for the past 3 days. 1. Acute DKA in a known type I diabetic secondary to missed medications, no signs of infection seen, anion gap is 18 on admission Plan: Admit to ICU, DKA protocol, IV fluids, insulin drip,nutrition consult, case management consult for medication assistance, resume home insulin when anion gap is closed 2. Leucoytosis, no signs of infection, likely reactive, will monitor 3. Pseudohyponatremia secondary to DKA/dehydration, will trend labs 4. DVT PPx- early ambulation. Code Visit Inpatient E AND M: 25313 Init Hosp L3 07/02/18 1247 <Electronically signed by Mary Weems MD> Date Mary Weems MD Cosigner Signature: Date (if applicable) CC: Martin Arellano MD; Mary Weems MD Signed BEDSIDE GLUCOSE Collected: 07/02/2018 Status: F Source: [place] 12:34 PM [facility] REPOSITORY TYPE CODE TESTS RESULT OUT OF REFERENCE UNITS RANGE LAB L501.080 70-110 mg/dL High BEDSIDE GLU 238 Result Comment: Dr Andino Followed MANAGEMENT OF PATIENT CARE PER NURSING PROTOCOL Performed By: #### L501.080 #### [facility] Point of Care [address] [place] [address] EMERGENCY DEPARTMENT Observed: 07/02/2018 Status: F Source: [place] SUMMARY 11:36 AM [facility] REPOSITORY [facility] Medical Records Department [address] [place] [address] Emergency Department Summary 07/02/18 1111 MR#: [id number] Acct: [id number] Name: HILDA DESIR Rep #: [id number] : 2000 18 From: Fide Covington MD PCP: Martin Arellano MD Status: REG ER History of Present Illness Chief Complaint: Abd Pain Informant: Patient Onset: Days - 10 Context: Gradual Onset Timing: Waxes and wanes Quality: ache Location: diffuse Current Severity: Moderate Maximum Severity: Moderate Worsened by: eating Relieved by: nothing Associated Symptoms: n/v Narrative: Patient seen here 3 days ago and was not in DKA. She states she has been trouble getting syringes for her insulins, but has the medications. For the last 3 days, she has been out of syringes for her Levemir and now has stopped using that as well and now is feeling worse. Having trouble keeping fluids down and is very thirsty. States that when she checks her sugars they have been in the 200s and not bad. - Past Medical History (1) Type I diabetes mellitus Status: Chronic Past Medical History - Allergies and Home Meds Allergies/Adverse Reactions: Allergies Egg Derived Allergy (Verified 07/02/18 09:42) Other Penicillins Allergy (Verified 07/02/18 09:42) Unknown Sulfa (Sulfonamide Antibiotics) Allergy (Verified 07/02/18 09:42) Unknown milk Adverse Reaction (Verified 07/02/18 09:42) Diarrhea prednisone Adverse Reaction (Verified 07/02/18 09:42) Vomiting bee stings Allergy (Severe, Uncoded 07/02/18 09:42) Unknown Primary Care Physician: Martin Arellano MD [Primary Care Provider] - Surgical History: no surgical history Smoking Status: Former smoker Review of Systems General: Reports: Chills, Malaise. Denies: Fever, Sweats Eyes: Denies: Visual changes - bilaterally, Diplopia ENT: Denies: Rhinorrhea, Sore throat Cardiovascular: Denies: Chest pain, Palpitations Respiratory: Reports: Dyspnea. Denies: Cough, Dyspnea on exertion Gastrointestinal: Reports: Abdominal pain, Nausea, Vomiting. Denies: Diarrhea, Melena, Hematochezia Genitourinary: Denies: Dysuria, Hematuria, Frequency Musculoskeletal: Denies: Back pain, Swelling, Extremity Pain Skin: Denies: Rash, Abscess Neurological: Denies: Headache, Weakness, Numbness Endocrine: Reports: Polyuria - Was urinating a lot, now about normal. Feels dehydrated.. Denies: Polydipsia Hematologic: Denies: Easy bruising, Easy bleeding Allergy: Denies: Swelling of the mouth, Swelling of the tongue Physical Exam Vital Signs/Narrative: Vital Signs 07/02/18 09:43 99.1 F 128 H 16 125/74 H 98 Inital Vital Signs reviewed: Yes General: Well nourished, Well developed, - - Appears malaised, no acute distress Head: Normocephalic, Atraumatic Eyes: Perrl, EOMI ENT: Moist mucous membranes, No rhinorrhea Neck: Supple, Nontender Cardiovascular: Regular rate, Regular rhythm, No murmurs Respiratory: No distress, CTA bilaterally, Chest nontender Abdomen: Soft, Nontender, Nondistended, Normal bowel sounds Back: Nontender, Normal Inspection Extremities: Nontender, No edema Skin: Normal color, No rash Neurological: Alert, Oriented x3, Cranial nerves II-XII grossly intact, Normal Strength, Normal Sensation Psychological: Normal affect Diagnostic/Tx/Re-eval Impressions Chest X-Ray 07/02/18 10:13 IMPRESSION: Normal x-ray examination of the chest. Electronically Signed: Akil Deutsch MD at 10:45 EST Tel [phone], Service support , 07/02/18 10:13 Chest 1 View (Portable) [RAD] Stat Laboratory Results WBC 14.2 H RBC 5.53 H Hgb 15.7 H WBC RBC Hgb Hct MCV MCH MCHC RDW RDW Differential Plt Count - Rhythm Strip Rhythm Strip: Sinus Tach Rate: 110 Ectopy: None - EKG Initial EKG Interpretation: No Acute Injury Pattern - Otherwise normal EKG with normal intervals, Sinus Tachycardia - Medical Decision Making Workup is consistent with DKA, she has an acidosis with a pH of 7.1 on ABG, positive ketones now, blood sugars in the 300s. Her potassium is okay, so after a couple liters of fluid and Zofran she was started on an insulin drip. On multiple reevaluation she is feeling much better even before the insulin was started. She will need to be admitted to the ICU, discussed with hospitalist. Procedures Critical care time (excluding procedures): 30-74 minutes - 35 min ED Disposition - Plan for ED Patient: Disposition: Acute Care Hospital [facility] Chief Complaint: Abd Pain Diagnosis: DKA (diabetic ketoacidoses) Referrals: Martin Arellano MD [Primary Care Provider] - What to do if you have Problems For any increased pain, shortness of breath, bleeding, nausea or vomiting, chest pain, or any unexpected problems, contact your Primary Care Provider. Call [facility] ([phone]) or report to the closest Emergency Room. Call 911 if necessary. 07/02/18 1136 <Electronically signed by Fide Covington MD> Date Fide Covington MD Cosigner Signature (If Indicated): Date CC: Martin Arellano MD BEDSIDE GLUCOSE Collected: 07/02/2018 Status: F Source: [place] 11:35 AM [facility] REPOSITORY TYPE CODE TESTS RESULT OUT OF REFERENCE UNITS RANGE LAB L501.080 70-110 mg/dL High BEDSIDE GLU 302 Result Comment: MANAGEMENT OF PATIENT CARE PER NURSING PROTOCOL Performed By: #### L501.080 #### [facility] Point of Care [address] [place], [place] [id number] VENOUS BLOOD GAS Collected: 07/02/2018 Status: F Source: [place] 10:41 AM [facility] REPOSITORY TYPE CODE TESTS RESULT OUT OF RANGE REFERENCE UNITS LAB L9000.9990 Normal BLD GAS TYPE LUIS LAB L9001.1050 O2 Normal Delivery Dev Room Air LAB L9001.1104 Normal Results To ED LAB L9001.1105 Normal Time Given 1035 LAB L9002.1110 7.32-7.42 Low alert VBGpH - I-STAT 7.16 LAB L9002.1212 41-51 mmHg Low VBG pCO2 - 29.6 ISTA LAB L9002.1310 25-40 mmHg High VBG PO2 I-STAT 48 LAB L9002.2300 22-26 mmol/L Low VBG HCO3 ISTAT 11 LAB L9002.2400 -1.0-3.5 mmol/L Low VBG BE ISTAT -18 LAB L9002.2410 50-70 % High VBG SO2 ISTAT 72 LAB L9002.2415 23-33 mmol/L Low VBG O2 CT 11 ISTAT Performed By: #### L9000.0810 #### [facility] Point of Care [address] [place], [place] [id number] CBC W/DIFF, AUTOMATED Collected: 07/02/2018 Status: F Source: [place] 10:34 AM [facility] REPOSITORY TYPE CODE TESTS RESULT OUT OF RANGE REFERENCE UNITS LAB L100.1000 4.4-11.0 K/mm3 High WBC 14.2 LAB L100.1200 4.2-5.4 M/mm3 High RBC 5.53 LAB L100.1300 12.0-15.0 g/dl High HGB 15.7 LAB L100.1400 37-47 % Normal HCT 45.0 LAB L100.1500 81-99 fL Normal MCV 81.4 LAB L100.1600 27.0-32.0 pg Normal MCH 28.4 LAB L100.1700 32-36 g/gl Normal MCHC 34.9 LAB L100.1810 11.6-14.6 % Normal RDW CV 13.1 LAB L100.1820 35.1-43.9 fl Normal RDW SD 38.5 LAB L100.1900 150-450 K/mm3 Normal PLT 371 LAB L100.2000 6.2-12.0 fl Normal MPV 9.0 LAB L100.2100 47-70 % High NEUT% 89.9 LAB L100.2200 19-41 % Low LY% 8.4 LAB L100.2300 0-10 % Normal MONO% 1.2 LAB L100.2400 0-5 % Normal EO% 0.1 LAB L100.2500 0-1 % Normal BASO% 0.3 LAB L100.2550 0.0-0.9 % Normal IM GRAN % 0.100 Result Comment: IG% - Immature Granulocytes (promyelocytes, myelocytes and metamyelocytes) > 1% indicates that a LEFT SHIFT is Present. LAB L100.2620 2.0-7.7 X10 3/uL High Absolute Neut 12.7 LAB L100.2720 0.83-4.51 X10 3/ul Normal Absolute Lymph 1.19 Performed By: #### L100.0100 #### [facility] [address], [address] COMPREHENSIVE METABOLIC Collected: 07/02/2018 Status: F Source: [place] [facility] 10:34 AM [facility] REPOSITORY TYPE CODE TESTS RESULT OUT OF RANGE REFERENCE UNITS LAB L501.0100 74-106 mg/dL High GLU 372 Result Comment: Glucose result greater than or equal to 200 mg/dL suggests DIABETES MELLITUS per A.D.A. criteria. Please note revised GLUCOSE reference range effective 2017. LAB L501.1000 7-18 mg/dL Normal BUN 14 LAB L501.1100 0.55-1.02 mg/dL Normal CREAT,SERUM 0.64 Result Comment: The validity of the calculated GFR AND GFRAA in patients over 70 years has not been determined. Clinical correlation is essential. LAB L501.1110 >60 mL/min Normal EST GFR 126 Result Comment: Non- GFR Calc LAB L501.1115 >60 mL/min Normal EST GFR - AA 152 Result Comment: GFR Calc LAB L501.1255 ml/min Normal Estimated CRCL 117.98 LAB L501.1300 10-20 RATIO High BUN/CRE 21.9 LAB L501.1500 6.4-8. g/dL High 2 T PROT 8.6 LAB L501.1800 3.2-5. g/dL 0 ALB Normal 4.7 LAB L501.1950 2.2-4. g/dL 2 GLOB Normal 3.9 LAB L501.2000 0.9-2. RATIO 4 A/G Normal 1.2 LAB L501.2200 8.5-10 mg/dL .1 CA Normal 9.2 LAB L501.4100 15-37 U/L Low AST 8 LAB L501.4305 45-117 U/L ALK P Normal 98 LAB L501.4405 13-56 U/L ALT Normal 17 LAB L501.4600 0.20-1 mg/dL .00 T BILI Normal 0.90 LAB L501.5300 136-14 mmol/L Low 5 NA 134 LAB L501.5600 3.5-5. mmol/L 1 K Normal 4.1 LAB L501.5900 98-107 mmol/L CL Normal 104 LAB L501.6100 21.0-3 mmol/L Low 2.0 CO2 12.0 LAB L501.6200 5-15 High GAP 18 Performed By: #### L500.4050, L501.2450 #### [facility], [address] LIPASE Collected: 07/02/2018 Status: F Source: [place] 10:34 AM [facility] REPOSITORY TYPE CODE TESTS RESULT OUT OF REFERENCE UNITS RANGE LAB L501.2450 73-393 U/L Low LIPASE 58 Performed By: #### L500.4050, L501.2450 #### [facility] [address] [place], [address] ACETONE SERUM Collected: 07/02/2018 Status: F Source: [place] 10:34 AM [facility] REPOSITORY TYPE CODE TESTS RESULT OUT OF REFERENCE UNITS RANGE LAB L501.6900 NEG High ACETONE SERUM SMALL Performed By: #### L501.6900 #### [facility] [address] [place], [address] CHEST 1 VIEW Observed: 07/02/2018 Status: F Source: [place] (PORTABLE) 10:17 AM [facility] REPOSITORY [facility] Imaging Services [address] [place] [address] Chest 1 View (Portable) MR#: [id number] Acct: [id number] Name: HILDA DESIR Rep #: [id number] : 2000 F 18 From: Akil Deutsch MD PCP: Martin Arellano MD Status: PRE ER Study: Chest 1 View (Portable) Date of Exam: 07/02/18 Exam# [id number] Ordering Dr: Fide Covington MD STUDY: X-RAY CHEST REASON FOR EXAM: Female, 18 years old. Diffuse abdominal pain with nausea and vomiting. TECHNIQUE: Single AP portable view of the chest. COMPARISON: Comparison is made with prior study dated July 05, 2015. FINDINGS: The lungs are clear and expanded. There is no demonstrated pleural abnormality. Normal size heart. Normal mediastinum and kaleigh. Normal visualized pulmonary arteries. Normal visualized aortic arch and descending thoracic aorta. Normal visualized thoracic spine. Normal visualized ribs, clavicles, and shoulders. There is no demonstrated abnormality of the visualized soft tissue structures of the upper abdomen. RAD/Chest 1 View (Portable) IMPRESSION: Normal x-ray examination of the chest. Electronically Signed: Akil Detusch MD at 10:45 EST Tel [phone], Service support , CC: Martin Arellano MD; FIDE COVINGTON MD Agricultural Appraiser: Signed URINALYSIS, COMPLETE Collected: 07/02/2018 Status: F Source: [place] 10:15 AM [facility] REPOSITORY Order Comment: Order Date: 07/02/18 Has pt arrived? Y How was Urine Obtained? JOB HAND TO SPECIFY TYPE CODE TESTS RESULT OUT OF RANGE REFERENCE UNITS LAB L400.3000 Yellow COLOR Normal Yellow LAB L400.3050 Clear Normal CLARITY Sl. Cloudy LAB L400.3200 Normal mg/dl High GLUCOSE, UR 1000 LAB L400.3300 Negative mg/dL Normal BILIRUBIN URINE Negative LAB L400.3400 Negative mg/dl High KETONE UR 150 Result Comment: CRITICAL VALUE *H CRITICAL VALUE VERIFIED. CALLED TO SAI RUIZ 07/02/18 1043 Dennis Merrill. RESULTS READ BACK BY SAME. LAB L400.3465 1.002-1.030 Normal SP.GR. DIPSTX 1.025 LAB L400.3550 5.0 - 8.0 pH Normal UR 5.0 LAB L400.3600 Negative mg/dl High PROT DIPSTX 100 LAB L400.3700 Normal mg/dl Normal UROBILI Normal LAB L400.3750 Negative Normal NITRITE UR Negative LAB L400.3780 Negative /ul High OCCULT 250 BLOOD-UR LAB L400.3800 Negative /ul Normal LEUK ESTERASE Negative LAB L400.4050 0-5 /hpf 0 Normal WBC SEEN LAB L400.4100 0-5 /hpf Normal RBC-UA 25-50 SEEN LAB L400.4150 5-10 /hpf Normal SQUAM EPI 0-5 SEEN LAB L400.4300 None Seen /hpf 0 Normal BACTERIA SEEN LAB L400.4350 <or=2+ /hpf 0 Normal MUCUS, URINE SEEN Performed By: #### L400.0001 #### [facility] [address] [place], [address] CBC W/DIFF, AUTOMATED Collected: 06/29/2018 Status: F Source: [place] 11:20 AM [facility] REPOSITORY TYPE CODE TESTS RESULT OUT OF RANGE REFERENCE UNITS LAB L100.1000 4.4-11.0 K/mm3 Normal WBC 4.5 LAB L100.1200 4.2-5.4 M/mm3 Normal RBC 4.71 LAB L100.1300 12.0-15.0 g/dl Normal HGB 13.3 LAB L100.1400 37-47 % Normal HCT 38.7 LAB L100.1500 81-99 fL Normal MCV 82.2 LAB L100.1600 27.0-32.0 pg Normal MCH 28.2 LAB L100.1700 32-36 g/gl Normal MCHC 34.4 LAB L100.1810 11.6-14.6 % Normal RDW CV 13.0 LAB L100.1820 35.1-43.9 fl Normal RDW SD 38.8 LAB L100.1900 150-450 K/mm3 Normal PLT 245 LAB L100.2000 6.2-12.0 fl Normal MPV 8.6 LAB L100.2100 47-70 % Normal NEUT% 63.1 LAB L100.2200 19-41 % Normal LY% 30.0 LAB L100.2300 0-10 % Normal MONO% 5.8 LAB L100.2400 0-5 % Normal EO% 0.9 LAB L100.2500 0-1 % Normal BASO% 0.2 LAB L100.2550 0.0-0.9 % Normal IM GRAN % 0.000 Result Comment: IG% - Immature Granulocytes (promyelocytes, myelocytes and metamyelocytes) > 1% indicates that a LEFT SHIFT is Present. LAB L100.2620 2.0-7.7 X10 3/uL Normal Absolute Neut 2.8 LAB L100.2720 0.83-4.51 X10 3/ul Normal Absolute Lymph 1.34 Performed By: #### L100.0100 #### [facility] [place], [address] COMPREHENSIVE METABOLIC Collected: 06/29/2018 Status: F Source: [place] [facility] 11:20 AM [facility] REPOSITORY TYPE CODE TESTS RESULT OUT OF RANGE REFERENCE UNITS LAB L501.0100 74-106 mg/dL High GLU 232 Result Comment: Glucose result greater than or equal to 200 mg/dL suggests DIABETES MELLITUS per A.D.A. criteria. Please note revised GLUCOSE reference range effective 2017. LAB L501.1000 7-18 mg/dL Normal BUN 11 LAB L501.1100 0.55-1.02 mg/dL Low CREAT,SERUM 0.49 Result Comment: The validity of the calculated GFR AND GFRAA in patients over 70 years has not been determined. Clinical correlation is essential. LAB L501.1110 >60 mL/min Normal EST GFR 170 Result Comment: Non- GFR Calc LAB L501.1115 >60 mL/min Normal EST GFR - AA 205 Result Comment: GFR Calc LAB L501.1255 ml/min Normal Estimated CRCL 157.37 LAB L501.1300 10-20 RATIO High BUN/CRE 22.3 LAB L501.1500 6.4-8. g/dL 2 T PROT Normal 6.6 LAB L501.1800 3.2-5. g/dL 0 ALB Normal 3.5 LAB L501.1950 2.2-4. g/dL 2 GLOB Normal 3.1 LAB L501.2000 0.9-2. RATIO 4 A/G Normal 1.1 LAB L501.2200 8.5-10 mg/dL Low .1 CA 8.3 LAB L501.4100 15-37 U/L Low AST 13 Result Comment: Slight Hemolysis, Result may be falsely increased. LAB L501.4305 45-117 U/L Normal ALK P 68 LAB L501.4405 13-56 U/L Normal ALT 15 LAB L501.4600 0.20-1.00 mg/dL Normal T BILI 0.50 LAB L501.5300 136-145 mmol/L Normal NA 139 LAB L501.5600 3.5-5.1 mmol/L Normal K 3.7 Result Comment: Slight Hemolysis, Result may be falsely increased. LAB L501.5900 98-107 mmol/L High CL 108 LAB L501.6100 21.0-32.0 mmol/L Normal CO2 25.0 LAB L501.6200 5-15 Normal 6 GAP Performed By: #### L500.4050 #### [facility] [address] [place], [address] BEDSIDE GLUCOSE Collected: 06/29/2018 Status: F Source: [place] 11:19 AM [facility] REPOSITORY TYPE CODE TESTS RESULT OUT OF REFERENCE UNITS RANGE LAB L501.080 70-110 mg/dL High BEDSIDE GLU 229 Result Comment: MANAGEMENT OF PATIENT CARE PER NURSING PROTOCOL Performed By: #### L501.080 #### [facility] Point of Care [address] [place] [address] ,URINE Collected: 06/29/2018 Status: F Source: [place] 11:07 AM [facility] REPOSITORY Order Comment: Order Date: 06/29/18 TYPE CODE TESTS RESULT OUT OF REFERENCE UNITS RANGE LAB L400.8000 Negative Normal HCGUQUAL Negative Result Comment: Very dilute urine specimens, as indicated by a low specific gravity, may not contain national sales representative levels of hCG. If is still suspected, a first morning urine specimen should be collected 48 hours later and tested. Performed By: #### L400.7600 #### [facility] [address] [place], [address] URINALYSIS, COMPLETE Collected: 06/29/2018 Status: F Source: [place] 11:07 AM [facility] REPOSITORY Order Comment: Order Date: 06/29/18 How was Urine Obtained? CLEAN CATCH TYPE CODE TESTS RESULT OUT OF RANGE REFERENCE UNITS LAB L400.3000 Yellow COLOR Normal Yellow LAB L400.3050 Clear Normal CLARITY Clear LAB L400.3200 Normal mg/dl High GLUCOSE, UR 1000 LAB L400.3300 Negative mg/dL Normal BILIRUBIN URINE Negative LAB L400.3400 Negative mg/dl Normal KETONE UR Negative LAB L400.3465 1.002-1.030 Normal SP.GR. DIPSTX 1.025 LAB L400.3550 5.0 - 8.0 pH UR Normal 6.0 LAB L400.3600 Negative mg/dl High PROT 15 DIPSTX LAB L400.3700 Normal mg/dl Normal UROBILI Normal LAB L400.3750 Negative Normal NITRITE UR Negative LAB L400.3780 Negative /ul High OCCULT BLOOD-UR 250 LAB L400.3800 Negative /ul High LEUK 25 ESTERASE LAB L400.4050 0-5 /hpf WBC Normal 0-5 SEEN LAB L400.4100 0-5 /hpf Normal RBC-UA 5-10 SEEN LAB L400.4150 5-10 /hpf SQUAM Normal EPI 0-5 SEEN LAB L400.4300 None Seen /hpf Normal BACTERIA RARE LAB L400.4350 <or=2+ /hpf Normal MUCUS, URINE RARE Performed By: #### L400.0001 #### [facility] [address] [facility] [place], [address] EMERGENCY DEPARTMENT Observed: 04/01/2018 Status: F Source: [place] SUMMARY 5:21 PM [facility] REPOSITORY [facility] Medical Records Department [address] [place] [address] Emergency Department Summary 04/01/18 1357 MR#: [id number] Acct: [id number] Name: HILDA DESIR Rep #: [id number] : 2000 17 From: Zeeshan Wilson MD PCP: Martin Arellano MD Status: DEP ER - ER Visit Summary Date of Service: 04/01/18 Chief Complaint: Headache and leg pain History of Present Illness: The patient is a [address] Espinosa. She has a history of type 1 diabetes mellitus. She reports that she has pain in both legs that began this morning. States it was present when she woke at 9 AM. She has not had this previously. However, she reports that she has been walking a great deal over the past few days. She also complains of a headache is 4 out of 10 severity. She does have a history of similar headaches. Patient denies any other myalgias. She denies back pain. No fever or chills. No chest pain, cough, or shortness of breath. No abdominal pain. She has been nauseated, but she has not vomited. No diarrhea. No melena or hematochezia. No dysuria frequency. She is on her menstrual cycle now. No vaginal discharge. Physical Examination: Vitals: Stable. Afebrile. General: Well-nourished and well-developed. Head: Normocephalic atraumatic. Neck: Supple, no lymphadenopathy. No JVD. Nontender. Cardiovascular: Regular rate and rhythm. No murmurs. Respiratory: No respiratory distress. Clear to auscultation bilaterally. Abdominal: Soft, nontender, nondistended, normal bowel sounds. No guarding, rebound, or peritoneal signs. Back: Nontender. Extremities: Mild diffuse sinus palpation over her thighs and legs bilaterally. This is both anterior and posterior. She has 2+ dorsalis pedis pulses. She has normal sensation to light touch. No edema. Skin: Normal color, no rash. Neurologic: Alert and oriented 3. Cranial nerves II through XII are intact. Normal strength and sensation. Psych: Depressed affect. Test Results: Accu-Chek is 126. CBC is remarkable for segment neutrophils 74. Chem-7 is more for potassium 3.4 and creatinine 0.51. CPK is normal. test is negative. Emergency Department Course and Treatment: The patient has a difficult time discerning between pain and numbness. On exam she denies any change in sensation to her legs. However, they are tender to palpation. She was treated with a liter of normal saline and Tylenol p.o. repeat Accu-Chek is 56. The patient ate here. Treatment Plan: Patient be discharged instructions to push fluids. Check her sugar and eat frequent small meals. Follow-up with her primary care physician 1 to days if not improving. Return to the emergency department for any worsening symptoms. Disposition: To home in improved and stable condition. Impression: 1. Myalgias and legs. 2. Type 1 diabetes mellitus. 3. Hypoglycemia. This note was generated with V[employer] dictation software. It may contain incorrect words, spelling, and punctuation that were not noted in review of the chart prior to signing ED Disposition - Plan for ED Patient: Chief Complaint: General Illness Instructions: ED Muscle Aching Referrals: Martin Arellano MD [Primary Care Provider] - 1-2 Days if not improving What to do if you have Problems For any increased pain, shortness of breath, bleeding, nausea or vomiting, chest pain, or any unexpected problems, contact your Primary Care Provider. Call [facility] ([phone]) or report to the closest Emergency Room. Call 911 if necessary. 04/01/18 1721 <Electronically signed by Zeeshan Wilson MD> Date Zeeshan Wilson MD Cosigner Signature (If Indicated): Date CC: Martin Arellano MD BEDSIDE GLUCOSE Collected: 04/01/2018 Status: F Source: [place] 2:46 PM [facility] REPOSITORY TYPE CODE TESTS RESULT OUT OF REFERENCE UNITS RANGE LAB L501.080 70-110 mg/dL Low BEDSIDE GLU 56 Result Comment: MANAGEMENT OF PATIENT CARE PER NURSING PROTOCOL Performed By: #### L501.080 #### [facility] [place] [address] CBC W/DIFF, AUTOMATED Collected: 04/01/2018 Status: F Source: [place] 2:16 PM [facility] REPOSITORY TYPE CODE TESTS RESULT OUT OF RANGE REFERENCE UNITS LAB L100.1000 4.4-11.0 K/mm3 Normal WBC 6.1 LAB L100.1200 4.2-5.4 M/mm3 Normal RBC 4.94 LAB L100.1300 12.0-15.0 g/dl Normal HGB 14.0 LAB L100.1400 37-47 % Normal HCT 41.2 LAB L100.1500 81-99 fL Normal MCV 83.4 LAB L100.1600 27.0-32.0 pg Normal MCH 28.3 LAB L100.1700 32-36 g/gl Normal MCHC 34.0 LAB L100.1810 11.6-14.6 % Normal RDW CV 13.1 LAB L100.1820 35.1-43.9 fl Normal RDW SD 39.5 LAB L100.1900 150-450 K/mm3 Normal PLT 289 LAB L100.2000 6.2-12.0 fl Normal MPV 8.6 LAB L100.2100 47-70 % High NEUT% 74.0 LAB L100.2200 19-41 % Normal LY% 20.7 LAB L100.2300 0-10 % Normal MONO% 3.6 LAB L100.2400 0-5 % Normal EO% 1.0 LAB L100.2500 0-1 % Normal BASO% 0.7 LAB L100.2550 0.0-0.9 % Normal IM GRAN % 0.000 Result Comment: IG% - Immature Granulocytes (promyelocytes, myelocytes and metamyelocytes) > 1% indicates that a LEFT SHIFT is Present. LAB L100.2620 2.0-7.7 X10 3/uL Normal Absolute Neut 4.5 LAB L100.2720 0.83-4.51 X10 3/ul Normal Absolute Lymph 1.26 Performed By: #### L100.0100 #### [facility] [address] [place], [place], [address] BASIC METABOLIC Collected: 04/01/2018 Status: F Source: [place] PROFILE ([facility]) 2:16 PM [facility] REPOSITORY TYPE CODE TESTS RESULT OUT OF RANGE REFERENCE UNITS LAB L501.0100 74-106 mg/dL Normal GLU 81 Result Comment: Please note revised GLUCOSE reference range effective 2017. LAB L501.1000 7-18 mg/dL Normal BUN 13 LAB L501.1100 0.55-1.02 mg/dL Low CREAT,SERUM 0.51 Result Comment: The validity of the calculated GFR AND GFRAA in patients over 70 years has not been determined. Clinical correlation is essential. LAB L501.1110 >60 mL/min Normal EST GFR 165 Result Comment: Non- GFR Calc LAB L501.1115 >60 mL/min Normal EST GFR - AA 199 Result Comment: GFR Calc LAB L501.1255 ml/min Normal Estimated CRCL 158.81 LAB L501.1300 10-20 RATIO High BUN/CRE 25.6 LAB L501.2200 8.5-10 mg/dL .1 CA Normal 9.2 LAB L501.5300 136-14 mmol/L 5 NA Normal 141 LAB L501.5600 3.5-5. mmol/L Low 1 K 3.4 LAB L501.5900 98-107 mmol/L CL Normal 106 LAB L501.6100 21.0-3 mmol/L 2.0 CO2 Normal 27.0 LAB L501.6200 5-15 GAP Normal 8 Performed By: #### L500.2500 #### [facility] [address] [place], [address] ,SERUM,HCG QUALI. Collected: Status: F Source: [place] 04/01/2018 2:16 PM [facility] REPOSITORY TYPE CODE TESTS RESULT OUT OF REFERENCE UNITS RANGE LAB L700.6700 =>Qualitative mIU/mL Normal HCG Qual < 1 triggr LAB L700.7000 0-9 Nonpreg Negative Normal HCGSQUAL NEGATIVE Performed By: #### L700.6800 #### [facility] [address] [place], [address] CPK TOTAL, CREATINE Collected: 04/01/2018 Status: F Source: [place] 2:16 PM [facility] REPOSITORY TYPE CODE TESTS RESULT OUT OF RANGE REFERENCE UNITS LAB L501.3620 26-192 U/L Normal CPK TOTAL 43 Performed By: #### L501.3620 #### [facility] [address] [place], [address] BEDSIDE GLUCOSE Collected: 04/01/2018 Status: F Source: [place] 1:50 PM [facility] REPOSITORY TYPE CODE TESTS RESULT OUT OF REFERENCE UNITS RANGE LAB L501.080 70-110 mg/dL High BEDSIDE GLU 126 Result Comment: MANAGEMENT OF PATIENT CARE PER NURSING PROTOCOL Performed By: #### L501.080 #### [facility] Point of Care [address] [place] [address] CNOV Observed: 01/09/2018 Status: COMPLETED Source: [place] 3:45 PM [facility] REPOSITORY Office Visit (PEDSWS) HILDA DESIR ([id number]) 2000 F Date Time Provider Department 01/09/18 3:45 PM MARTIN ARELLANO PEDSWS During your visit today, we recorded the following information about you: Temperature Pulse Respiration Blood pressure 97.6 degrees 80/minute 16/minute 108/60 Weight Last Period 58.5 kg 12/19/17 Martin Arellano MD 01/09/2018 5:11 PM Signed Hilda Tyrone Desir is a 17 year old female is a 17 year old female who complains of abd pain 2 weeks ago week. Now resolved 4-5 days after that visit. reports current yeast infection- think white discharge and dysuria. reviewed ER documentation 12/25/17 CT nl, Labs show nl CBC UA significant for 1000 Glu, 50 ket, 100 Leuk est serum glucose 148 Gap of 8 nl LFT, lipase, neg HcG documentation not available due to computer outage at the hospital. PHM: PAST MEDICAL HISTORY Diagnosis Date - Asthma - Constipation 08/07/2016 - Diabetes mellitus type 1 (HCC) has seen RAULITO Kan last in September SH: dropped out of high school taking care of siblings, mom in rehab looking to do online program to graduate ROS: Review of systems: Negative except for as listed above Physical Exam: General: alert and active in no apparent distress Eyes: normal Ears: External ears normal. Canals clear. TM's normal. Nose/Sinuses : Nares normal. Septum midline. Mucosa normal. No drainage or sinus tenderness. Oropharynx : normal Cardiovascular : Regular Rate and Rhythm without murmurs or clicks Lungs: clear to auscultation Abdomen : palpation: no masses, no hepatomegaly, no splenomegaly tenderness: Suprapubic mild ASSESSMENT: Dysuria (primary encounter diagnosis) Yeast infection Type 1 diabetes mellitus without complication (hcc) PLAN: Office Visit on 01/09/18 -PNEUMOCOCCAL IMMUNIZATION PPSV 23 -UA DIP B/O -URINE CULTURE -GC/CHLAMYDIA AMPLIF, URINE -fluconazole (DIFLUCAN) 150 mg tablet strongly encouraged finishing high school curriculum Referring Provider: SELF [200] Allergies As of Date: 01/09/2018 Noted Allergy Reaction CORN 08/10/2012 8 - GI Upset EGGS (EGG) 08/10/2012 14 - Other: See Comments Comments: abdominal pain LACTOSE INTOLERANCE (LACTASE) 12/31/2011 8 - GI Upset PENICILLINS 12/31/2011 2 - Rash SULFATRIM DS 12/31/2011 11 - Vomiting Date Reviewed: 01/09/2018 Reviewed by: Spring Baeza LPN - Fully Assessed Reason for Visit: Follow Up [171] Cmt: [facility] for abd pain Primary Visit Diagnosis:Dysuria [R30.0] Other Visit Diagnoses:Yeast infection [B37.9] Type 1 diabetes mellitus without complication (HCC) [E10.9] Order(s):UA DIP B/O [3766525] Order #: [id number] URINE CULTURE [SQURCUL] Order #: [id number]. #:[id number] fluconazole (DIFLUCAN) 150 mg tabletTake 1 tablet by mouth one time only for 1 dose.Disp: 1 tabletRfl: 0 GC/CHLAMYDIA AMPLIF, URINE [SQUGCCT] Order #: [id number] FUTURE PNEUMOCOCCAL IMMUNIZATION PPSV 23 [01948OXU] Order #: [id number] Prescriptions as of 01/09/2018 Sig: VENTOLIN HFA 90 MCG/ACTUATION* inhale 2 puffs every 4 hours * CETIRIZINE 10 MG TABLET take 1 tablet by mouth once d* FLUCONAZOLE 150 MG TABLET Take 1 tablet by mouth one ti* NYSTATIN 100,000 UNIT/GRAM TO* Apply 1 application to affect* NYSTATIN 100,000 UNIT/GRAM TO* Apply 1 application to affect* INSULIN ASPART U-100 100 UNI* Subcutaneous injection as dir* INSULIN DETEMIR (U-100) 100 U* Inject 40 Units subcutaneousl* PEN NEEDLE, DIABETIC 32 GAUGE* Use with insulin injections BLOOD SUGAR DIAGNOSTIC STRIPS Use as instructed up to 6 margaret* BLOOD-GLUCOSE METER Use as directed KETOCONAZOLE 2 % TOPICAL CREAM Apply 1 application to affect* HYDROCORTISONE 2.5 % TOPICAL * Apply 1 application to affect* DOCUSATE SODIUM 100 MG CAPSULE Take 1 capsule by mouth twice* POLYETHYLENE GLYCOL 3350 17 G* Take 17 g by mouth once daily. Patient not taking: Reported on 01/09/2018 ALCOHOL SWABS Apply 1 application to affect* INSULIN SYRINGE-NEEDLE U-100 * Supply to be used as directed* BLOOD SUGAR DIAGNOSTIC STRIPS Use as instructed 10 times da* LACTOBACILLUS ACIDOPHILUS CAP* Take 1 capsule by mouth once * ACETONE (URINE) TEST STRIPS Use to check for ketones when* GLUCAGON (HUMAN RECOMBINANT) * Inject 1 mg intramuscularly a* ACETONE (URINE) TEST STRIPS use as directed GLUCAGON (HUMAN RECOMBINANT) * Subcutaneous injection as nee* INHALATIONAL SPACING DEVICE 1 Device as needed. INSULIN ADMIN SUPPLIES SUBCUT* Up to 80 units total daily do* INSULIN SYRINGE-NEEDLE U-100 * Supply to be used as directed. BLOOD-GLUCOSE METER KIT Supply to be used as directed. Medication notes this encounter VENTOLIN HFA 90 MCG/ACTUATION AEROSOL INHALER >> Spring Baeza EDGING MACHINE FEEDER 01/09/2018 2:39 PM >> BAEZA, SPRING EDGING MACHINE FEEDER FriJan 09, 2018 2:39 PM needs refill BLOOD SUGAR DIAGNOSTIC STRIPS >> Spring Baeza EDGING MACHINE FEEDER 01/09/2018 2:37 PM >> BAEZA, SPRING EDGING MACHINE FEEDER FriJan 09, 2018 2:37 PM prn BLOOD-GLUCOSE METER >> [place] Baeza EDGING MACHINE FEEDER 01/09/2018 2:37 PM >> BAEZA, SPRING EDGING MACHINE FEEDER FriJan 09, 2018 2:37 PM prn HYDROCORTISONE 2.5 % TOPICAL CREAM >> [place] Baeza EDGING MACHINE FEEDER 01/09/2018 2:38 PM >> BAEZA, SPRING EDGING MACHINE FEEDER FriJan 09, 2018 2:38 PM not picked up ACETONE (URINE) TEST STRIPS >> [place] Baeza EDGING MACHINE FEEDER 01/09/2018 2:37 PM >> BAEZA SPRING EDGING MACHINE FEEDER FriJan 09, 2018 2:37 PM orn GLUCAGON (HUMAN RECOMBINANT) 1 MG INJECTION KIT >> [place] Baeza EDGING MACHINE FEEDER 01/09/2018 2:38 PM >> BAEZA, SPRING EDGING MACHINE FEEDER FriJan 09, 2018 2:38 PM prn Problem List As Of Date 01/09/2018 Noted Resolved Type 1 diabetes mellitus (HCC) [E10.9] INVALID FOR* Asthma [J45.909] INVALID FOR* Vaccination not carried out because of caregive*INVALID FOR* Chronic lymphocytic thyroiditis [E06.3] INVALID FOR* Strain of back [S39.012A] INVALID FOR* Cervicalgia [M54.2] INVALID FOR* Prescriptions ordered this encounter Disp Refills Start End FLUCONAZOLE 150 MG TABLET 1 ta* 0 01/09/2018 01/09/2018 Route: ORAL Sig: Take 1 tablet by mouth one time only for 1 dose. Encounter Status:Closed by MARTIN ARELLANO MD on 01/09/18 GC/CHLAMYDIA AMP, UR Collected: 01/09/2018 Status: F Source: [place] 3:19 PM [facility] TYPE CODE TESTS RESULT OUT OF REFERENCE UNITS RANGE LAB UGCAMP GC Negative Amplification, for Neisseria Ur gonorrhoeae by amplification. LAB UCLAMP Negative Chlamydia for Chlamydia Amplif, Ur trachomatis by amplification. Result Comment: For screening asymptomatic women, a vaginal swab specimen (APTIMA vaginal swab 446832) is optimal. Urine specimens have reduced sensitivity for Chlamydia trachomatis or Neisseria gonorrh oeae infection in female patients without symptoms. This test was developed and its performance characteristics determined by [facility] [place] ([facility] It has not been cleared or approved by the FDA. [facility] is regulated under CLIA as qualified to perform high-complexity testing. This test is used for clinical purposes. It should not be regarded as investigational or for research. Performed By: #### UGCCT #### [facility] [address], [place] [address] Observed: 01/09/2018 Status: F Source: [place] URINE CULTURE 3:18 PM [facility] REPOSITORY Sp. Request/Comment: - Best Practice Alert: To ensure optimal transport conditions and accurate culture results transfer urine specimens to rosario top C and S preservative tube. Culture Result - <10,000 CFU/ml Normal urogenital trent Performed By: #### URCUL #### [facility] [address], [place] [address] PROGRESS Observed: 01/09/2018 Status: COMPLETED Source: [place] 2:40 PM [facility] REPOSITORY HNO ID: [id number] Author: Martin Arellano Service: (none) Author Type: Physician Type: Progress Notes Filed: 01/09/2018 5:11 PM Note Text: Hilda Desir is a 17 year old female is a 17 year old female who complains of abd pain 2 weeks ago week. Now resolved 4-5 days after that visit. reports current yeast infection- think white discharge and dysuria. reviewed ER documentation 12/25/17 CT nl, Labs show nl CBC UA significant for 1000 Glu, 50 ket, 100 Leuk est serum glucose 148 Gap of 8 nl LFT, lipase, neg HcG documentation not available due to computer outage at the hospital. PHM: PAST MEDICAL HISTORY Diagnosis Date - Asthma - Constipation 08/07/2016 - Diabetes mellitus type 1 (HCC) has seen RAULITO Kan last in September SH: dropped out of high school taking care of siblings, mom in rehab looking to do online program to graduate ROS: Review of systems: Negative except for as listed above Physical Exam: General: alert and active in no apparent distress Eyes: normal Ears: External ears normal. Canals clear. TM's normal. Nose/Sinuses : Nares normal. Septum midline. Mucosa normal. No drainage or sinus tenderness. Oropharynx : normal Cardiovascular : Regular Rate and Rhythm without murmurs or clicks Lungs: clear to auscultation Abdomen : palpation: no masses, no hepatomegaly, no splenomegaly tenderness: Suprapubic mild ASSESSMENT: Dysuria (primary encounter diagnosis) Yeast infection Type 1 diabetes mellitus without complication (hcc) PLAN: Office Visit on 01/09/18 -PNEUMOCOCCAL IMMUNIZATION PPSV 23 -UA DIP B/O -URINE CULTURE -GC/CHLAMYDIA AMPLIF, URINE -fluconazole (DIFLUCAN) 150 mg tablet strongly encouraged finishing high school curriculum DOWNTIME REPORT Observed: 01/07/2018 Status: F Source: [place] 1:[address] [facility] Medical Records Department [address] [place] [address] Downtime Report MR#: [id number] Acct: [id number] Name: HILDA DESIR Rep #: [id number] : 2000 17 From: Torey Trujillo MD PCP: Martin Arellano MD Status: DEP ER This patient was seen during an EMR downtime December 22, 2017 - December 29, 2017. This patient may have a combination of paper and electronic documentation or all paper documentation. All documentation is viewable within the e-chart portion of [facility] for each patient visit. ABDOMEN/PELVIS WITH Observed: 12/26/2017 Status: F Source: [place] CONTRAST 10:[address] [facility] Imaging Services [address] [place] [address] Abdomen/Pelvis WITH Contrast MR#: [id number] Acct: [id number] Name: HILDA DESIR Rep #: [id number] : 2000 F 17 From: Maira Mckeon MD PCP: Martin Arellano MD Status: REG ER Study: Abdomen/Pelvis WITH Contrast Date of Exam: 12/25/17 Exam# [id number] Ordering Dr: Deborah Dong MD STUDY: CT ABDOMEN AND PELVIS WITH CONTRAST REASON FOR EXAM: Female, 17 years old. RLQ pain, nausea/vomiting, dysuria x 4 days Hx:diabetes RADIATION DOSAGE (If Supplied By Facility): CTDIvol = ( 10.96 ) mGy, DLP = ( 455.19 ) mGycm TECHNIQUE: Transaxial images were obtained from the dome of the diaphragm to the symphysis pubis without oral contrast. 100ML ml of Isovue 300 contrast was administered. Sagittal and coronal images were reconstructed. Individualized dose optimization techniques were used for this CT. COMPARISON: None. FINDINGS: The visualized lung bases are unremarkable. The visualized portions of the heart are within normal limits. Normal liver. Normal gallbladder and extrahepatic biliary system. Normal spleen. Normal pancreas. Normal bilateral adrenal glands. Normal right kidney. Normal left kidney. Normal visualized stomach. Normal small intestine. Normal colon. The appendix is visualized and appears normal. Normal abdominal aorta. Normal inferior vena cava. Normal retroperitoneum. Normal urinary bladder. Normal abdominal wall. Normal osseous structures. CT/Abdomen/Pelvis WITH Contrast IMPRESSION: Normal enhanced CT of the abdomen and pelvis. Electronically Signed: Maira Mckeon MD at 6:29 EDT Tel , Service support , CC: Martin Arellano MD; Deborah Dong MD Agricultural Appraiser: Signed URINALYSIS, COMPLETE Collected: 12/25/2017 Status: F Source: [place] 5:15 AM [facility] REPOSITORY Order Comment: RESULT(S) PREVIOUSLY REPORTED ON MANUAL REQUISITION DURING DOWNTIME. How was Urine Obtained? CLEAN CATCH TYPE CODE TESTS RESULT OUT OF RANGE REFERENCE UNITS LAB L400.3000 Yellow COLOR Normal Yellow LAB L400.3050 Clear Normal CLARITY Clear LAB L400.3200 Normal mg/dl High GLUCOSE, UR 1000 LAB L400.3300 Negative mg/dL Normal BILIRUBIN URINE Negative LAB L400.3400 Negative mg/dl High 50 KETONE UR LAB L400.3465 1.002-1.030 Normal SP.GR. DIPSTX 1.015 LAB L400.3550 5.0 - 8.0 pH UR Normal 6.5 LAB L400.3600 Negative mg/dl PROT Normal DIPSTX Negative LAB L400.3700 Normal mg/dl Normal UROBILI Normal LAB L400.3750 Negative Normal NITRITE UR Negative LAB L400.3780 Negative /ul Normal OCCULT BLOOD-UR Negative LAB L400.3800 Negative /ul High LEUK ESTERASE 100 LAB L400.4050 0-5 /hpf WBC Normal 5-10 SEEN LAB L400.4100 0-5 /hpf 0 Normal RBC-UA SEEN LAB L400.4150 5-10 /hpf SQUAM Normal EPI 25-50 SEEN LAB L400.4300 None Seen /hpf 0 Normal BACTERIA SEEN LAB L400.4350 <or=2+ /hpf 1+ Normal MUCUS, URINE Performed By: #### L400.0001 #### [facility] [place], [address] CBC W/DIFF, AUTOMATED Collected: 12/25/2017 Status: F Source: [place] 4:43 AM [facility] REPOSITORY Order Comment: RESULT(S) PREVIOUSLY REPORTED ON MANUAL REQUISITION DURING DOWNTIME. TYPE CODE TESTS RESULT OUT OF RANGE REFERENCE UNITS LAB L100.1000 4.4-11.0 K/mm3 Normal WBC 4.8 LAB L100.1200 4.2-5.4 M/mm3 Normal RBC 4.96 LAB L100.1300 12.0-15.0 g/dl Normal HGB 14.2 LAB L100.1400 37-47 % Normal HCT 40.7 LAB L100.1500 81-99 fL Normal MCV 82.1 LAB L100.1600 27.0-32.0 pg Normal MCH 28.6 LAB L100.1700 32-36 g/gl Normal MCHC 34.9 LAB L100.1810 11.6-14.6 % Normal RDW CV 13.5 LAB L100.1820 35.1-43.9 fl Normal RDW SD 39.8 LAB L100.1900 150-450 K/mm3 Normal PLT 324 LAB L100.2000 6.2-12.0 fl Normal MPV 8.9 LAB L100.2100 47-70 % Normal NEUT% 61.3 LAB L100.2200 19-41 % Normal LY% 28.4 LAB L100.2300 0-10 % Normal MONO% 8.2 LAB L100.2400 0-5 % Normal EO% 1.5 LAB L100.2500 0-1 % Normal BASO% 0.4 LAB L100.2550 0.0-0.9 % Normal IM GRAN % 0.200 Result Comment: IG% - Immature Granulocytes (promyelocytes, myelocytes and metamyelocytes) > 1% indicates that a LEFT SHIFT is Present. LAB L100.2620 2.0-7.7 X10 3/uL Normal Absolute Neut 2.9 LAB L100.2720 0.83-4.51 X10 3/ul Normal Absolute Lymph 1.35 Performed By: #### L100.0100 #### [facility] [address] [place], [place], [address] ACETONE SERUM Collected: 12/25/2017 Status: F Source: [place] 4:43 AM [facility] REPOSITORY Order Comment: RESULT(S) PREVIOUSLY REPORTED ON MANUAL REQUISITION DURING DOWNTIME. TYPE CODE TESTS RESULT OUT OF RANGE REFERENCE UNITS LAB L501.6900 NEG Normal ACETONE SERUM NEGATIVE Performed By: #### L501.6900 #### [facility] [address] [place], [address] BASIC METABOLIC Collected: 12/25/2017 Status: F Source: [place] PROFILE (BMP) 4:43 AM [facility] REPOSITORY Order Comment: RESULT(S) PREVIOUSLY REPORTED ON MANUAL REQUISITION DURING DOWNTIME. TYPE CODE TESTS RESULT OUT OF RANGE REFERENCE UNITS LAB L501.0100 74-106 mg/dL High GLU 148 Result Comment: Fasting Glucose result greater than or equal to 126 mg/dL suggests DIABETES MELLITUS per A.D.A. criteria. Please note revised GLUCOSE reference range effective 2017. LAB L501.1000 7-18 mg/dL Normal BUN 12 LAB L501.1100 0.55-1.02 mg/dL Low CREAT,SERUM 0.45 Result Comment: The validity of the calculated GFR AND GFRAA in patients over 70 years has not been determined. Clinical correlation is essential. LAB L501.1110 >60 mL/min Normal EST GFR 191 LAB L501.1115 >60 mL/min Normal EST GFR - AA 231 LAB L501.1300 10-20 RATIO High BUN/CRE 26.7 LAB L501.2200 8.5-10.1 mg/dL Normal CA 8.5 LAB L501.5300 136-145 mmol/L Normal NA 141 LAB L501.5600 3.5-5.1 mmol/L Low K 3.4 LAB L501.5900 98-107 mmol/L Normal CL 106 LAB L501.6100 21.0-32.0 mmol/L Normal CO2 27.0 LAB L501.6200 5-15 Normal GAP 8 Performed By: #### L500.2500, L500.3400, L501.2450 #### [facility] [address] [place], [place], [id number] LIVER PROFILE Collected: 12/25/2017 Status: F Source: [place] 4:43 AM [facility] REPOSITORY Order Comment: RESULT(S) PREVIOUSLY REPORTED ON MANUAL REQUISITION DURING DOWNTIME. TYPE CODE TESTS RESULT OUT OF RANGE REFERENCE UNITS LAB L501.1500 6.4-8.2 g/dL Normal T PROT 7.4 LAB L501.1800 3.2-5.0 g/dL Normal ALB 4.0 LAB L501.1950 2.2-4.2 g/dL Normal GLOB 3.4 LAB L501.4100 15-37 U/L Low AST 8 LAB L501.4305 45-117 U/L Normal ALK P 80 LAB L501.4405 13-56 U/L Normal ALT 14 LAB L501.4600 0.20-1.00 mg/dL Normal T BILI 0.50 LAB L501.4700 0.00-0.30 mg/dL Normal D BILI 0.16 Performed By: #### L500.2500, L500.3400, L501.2450 #### [facility] [address] [place], [place], [id number] LIPASE Collected: 12/25/2017 Status: F Source: [place] 4:43 AM [facility] REPOSITORY Order Comment: RESULT(S) PREVIOUSLY REPORTED ON MANUAL REQUISITION DURING DOWNTIME. TYPE CODE TESTS RESULT OUT OF RANGE REFERENCE UNITS LAB L501.2450 73-393 U/L Normal LIPASE 77 Performed By: #### L500.2500, L500.3400, L501.2450 #### [facility] [address] [place], [address] ,SERUM,HCG QUALI. Collected: Status: F Source: [place] 12/25/2017 4:43 AM [facility] REPOSITORY Order Comment: RESULT(S) PREVIOUSLY REPORTED ON MANUAL REQUISITION DURING DOWNTIME. TYPE CODE TESTS RESULT OUT OF REFERENCE UNITS RANGE LAB L700.6700 =>Qualitative mIU/mL Normal HCG Qual < 1 triggr LAB L700.7000 0-9 Nonpreg Negative Normal HCGSQUAL NEGATIVE Performed By: #### L700.6800 #### [facility] [address] [place], [place], [id number] ENDOCRINOLOGY VISIT Observed: 10/15/2017 Status: F Source: [place] REPORT 12:41 PM [facility] REPOSIT[facility] [address] [place] [address] OFFICE VISIT Date of Service: 10/15/17 MR#: [id number] Acct: [id number] Name: HILDA DESIR Rep #: [id number] : 2000 Provider: Radha Kan NP Age/Sex: 17/F Location[place] [facility] [place] Status: Signed HPI History of present illness Hilda Desir is a 17 year old female who presents for follow up of diabetes type 1. Diagnosed at age 9. Currently on levemir total of 80 units daily and novolog 15 units for 50 carbs. She reports she has been busy as she is caring for her 2 siblings while mother is gone from home in rehab. States she is taking her insulin and has been checking BG with consistency. Pt denies difficulty with injections or self monitoring of BG. Denies any signs of infection or irritation at site of injections. Reports taking insulin as directed Meter downloaded. BG 50-400 range . Going low after she corrects, using 1-15 correction ratio At time of visit: -Pt denies symptoms of hypertensive emergency (CP,SOB,HILARIO, or blurred vision) and hypotension(dizziness or lightheadedness) -Pt denies symptoms of hypoglycemia ( sweaty, confusion, anxiety, tremor, hunger, palpitations) and hyperglycemia ( polydipsia, polyuria) -Pt denies potential medication adverse effect. Hypoglycemia Aware of hypoglycemia: yes Able to self treat low BG: Yes Frequent low Blood sugar: No Has supply of glucagon: Yes SMBG inconsistent 50-400 Diet 2-3 meals daily, snacks Does carb count Type: type 1 Glucose control symptoms: Reports high fasting glucose Weight and fatigue symptoms: Denies snoring Cardiopulmonary symptoms: Denies chest pain at rest, dyspnea on exertion, lightheadedness or myalgias GI symptoms: Denies constipation, diarrhea, nausea/dyspepsia or vomiting Other symptoms: Denies blurry vision or change in vision Self monitoring: No (Not consistently) Diabetes education in past year: Yes Glucose testing: demonstrates correct use of meter, understands testing schedule Sick day education - understands ketone testing: Yes Physical activity: regular Exam Const General: comfortable Nutritional Appearance: well nourished Orientation: oriented to person [facility] Head: normal to inspection, atraumatic Ears: hearing grossly normal bilaterally Nose: external nose normal Mouth: oral mucosae normal, moist mucous membranes abnormal Teeth and gingiva: dentition normal Eyes General: appearance normal, both eyes and all related structures Eyelids: eyelids normal Conjunctivae: conjunctivae normal Sclera: sclerae normal Pupils: PERRL Neck Neck: normal visual inspection, full ROM Neck mass: No Resp Effort AND Inspection: normal respiratory effort, able to speak in complete sentences, symmetric chest movement Auscultation: Bilateral: Clear to Auscultation Cardio Rate: regular rate Rhythm: regular rhythm Heart Sounds: S1 normal, S2 normal, no murmurs, no rubs GI Inspection: normal to inspection Auscultation: normal bowel sounds Palpation: soft, no guarding Skin General: no rashes or lesions noted Wounds: no wounds Diabetic Foot Pulses: L dorsalis pedis pulse: normal, R dorsalis pedis pulse: normal Monofilament test: Left foot: normal, Right foot: normal Neuro General: moves all extremities, gait normal Cranial Nerves: CN's II-XI intact bilaterally Extrem General: normal to inspection, normal capillary refill Psych Appearance: well kempt Mood: congruent mood Affect: normal affect Speech and Movement: speech and movement normal Attitude: cooperative Thought Process: normal Thought Content: normal Judgment: judgment good Weight and fatigue symptoms: Denies snoring Cardiopulmonary symptoms: Denies chest pain at rest, dyspnea on exertion, lightheadedness or myalgias GI symptoms: Reports constipation; denies diarrhea, nausea/dyspepsia or vomiting Other symptoms: Denies blurry vision or change in vision Intake Vital Signs10/15/17 Height 4 ft 11 in 10/15/17 Weight: 134 lb 2 oz 10/15/17 Body Mass Index (BMI) 27.1 10/15/17 Blood Pressure 117/81 10/15/17 Blood Pressure Location Lt popliteal 10/15/17 Blood Pressure Position Sitting Intake Visit Reasons: 3wfu Meteorology Professor Required: No Accompanied by: Self Is patient in pain?: No Allergies Egg Derived Allergy (Verified 10/15/17 11:20) Other Penicillins Allergy (Verified 10/15/17 11:20) Unknown Sulfa (Sulfonamide Antibiotics) Allergy (Verified 10/15/17 11:20) Unknown ibuprofen Adverse Reaction (Verified 10/15/17 11:20) Vomiting prednisone Adverse Reaction (Verified 10/15/17 11:20) Vomiting bee stings Allergy (Severe, Uncoded 10/15/17 11:20) Unknown Medications Albuterol Inhaler [Ventolin Hfa (SP)] 1 - 2 puff INHALATION Q6H PRN PRN 07/05/15 [History Confirmed 10/15/17] Cetirizine HCl [Zyrtec] 10 mg PO QHS 07/05/15 [History Confirmed 10/15/17] Epinephrine [Epi Pen] 0.3 mg IM X1 #1 syringe 02/09/17 [Rx Confirmed 10/15/17] acetone (urine) test strips See Dose Instructions .ROUTE .MEDSUPPLY #25 ea 07/03/17 [History Confirmed 10/15/17] etonogestrel 68 mg subdermal implant 1 implant SUBDERMAL ONCE 07/03/17 [History Confirmed 10/15/17] glucagon (human recombinant) 1 mg injection kit 1 mg IM ONCE 07/03/17 [History Confirmed 10/15/17] insulin aspart U-100 100 unit/mL subcutaneous pen 15 unit SC TID ml 07/03/17 [History Confirmed 10/15/17] insulin syringe-needle U-100 1 mL 31 gauge x 12/03 See Dose Instructions .ROUTE .MEDSUPPLY #10 ea 07/03/17 [History Confirmed 10/15/17] blood sugar diagnostic strips See Dose Instructions .ROUTE .MEDSUPPLY #240 ea 09/10/17 [Rx Confirmed 10/15/17] blood-glucose meter kit See Dose Instructions .ROUTE .MEDSUPPLY #1 ea 09/10/17 [Rx Confirmed 10/15/17] Ondansetron [Zofran Odt] 4 mg PO Q6H PRN PRN #10 tab 09/12/17 [Rx Confirmed 10/15/17] Basaglar KwikPen U-100 Insulin 100 unit/mL (3 mL) subcutaneous 40 unit SC BID #30 ml NS 10/13/17 [Rx Confirmed 10/15/17] Is last menstrual period known: No Post menopausal: No Patient : No Nurse's Note: blood sugars : low : 39 high : 400+ PFSH Medical History Asthma (Acute) Diabetes type 1, controlled (Acute) Surgical History History of placement of ear tubes (Acute) Family History Grandmother Diabetes Sister Asthma Brother Asthma Social History Smoking Status: Never smoker second hand exposure: No alcohol intake: never substance use type: does not use ROS Const Constitutional: Positive for fatigue; no anorexia, body ache, chills, fever(s), frequent falls, decreased energy, malaise, night sweats, weakness, weight change, sleep problems, abnormal sleep pattern, change in appetite, other, headache(s), snoring or excessive sweating Eyes Eyes: Positive for dry eyes; no blurry vision, change in vision, double vision, discharge, bulging eyes, floaters, visual disturbances, eye pain, light sensitivity, spots in vision, tunnel vision or other ENT ENT: Positive for nasal discharge; no abnormal hearing, ear pain, ear discharge, ear pressure, hearing loss, tinnitus, dizziness/vertigo, balance problems, nosebleed/epistaxis, nasal congestion, nasal obstruction, nose pain, sinus pressure, sinus pain, post nasal drip, headache(s), facial pain, dental pain, dry mouth, bad breath, hoarseness, lip swelling, mouth lesions, mouth pain, sore throat, tongue swelling, throat swelling, other, difficulty swallowing or neck pain Resp Respiratory: No cough, change in phlegm color, chest congestion, excessive phlegm production, hemoptysis, pain on inspiration, shortness of breath, pain with cough, snoring, stridor, wheezing or other Cardio Cardiology: No chest pain at rest, chest pain with exertion, leg pain with exertion, excessive sweating, shortness of breath, dyspnea on exertion, generalized swelling, irregular heart rhythm, lightheadedness, orthopnea, radiating jaw, neck or arm pain, fast heart rate, slow heart rate, palpitations or other Gastro GI: Positive for constipation; no abdominal pain, belching, bloating, change in bowel habits, change in stool character, coffee ground emesis, cramping, diarrhea, heartburn, difficulty swallowing, feeling full early, excessive flatus, incontinent of stools, Vomiting blood/hematemesis, blood in stool, loose stools, Black,tarry stools, nausea/dyspepsia, pain with swallowing, vomiting or other Genitourinary-Female: No difficulty urinating, burning urination, painful urination, urinary incontinence, urinary frequency, urinary urgency, urinary hesitancy, urinary retention, blood in urine, Frequent nighttime urination/ nocturia, post void dribbling, suprapubic fullness, side pain, sexual problems, genital lesions, genital itching, hot flashes, abnormal periods, abnormal vaginal bleeding, absent period, painful periods, light periods, heavy periods, difficulty getting , painful intercourse, pelvic pain, vaginal dryness, vaginal odor, Vaginal Itching or other Musc Musculoskeletal: Positive for joint pain (L ankle); no abnormal walking, back pain, deformity, joint swelling, limited range of motion, loss of height, muscle cramps, muscle weakness, decreased muscle mass, body aches, neck pain, numbness, radiating pain into limb, stiffness, tingling or other Skin Skin: No acne, hair loss, change in hair, nail changes, boil, change in skin color, dry skin, redness, excessive hair growth, yellowing of the skin, lesions, itching, rash, skin pain, skin ulcer, sores, skin swelling, wounds or other Breast Breast: No other Neuro Neurology: No frequent falls, weakness, visual disturbances, abnormal hearing, headache(s), abnormal walking, numbness or tingling Psych Psychiatric: No abnormal sleep pattern, No change in appetite Endo Endocrine: Positive for fatigue; no other or excessive sweating Aller/Imm Allergy/Immunologic: No lip swelling, tongue swelling, throat swelling, wheezing or itchy eyes Assessment AND Plan Problems 1. Type 1 diabetes mellitus without complication E10.9 Plan Is doing much better at taking her insulin and checking her BG readings. She has began working on losing weight and is down several pounds. She appears to be overcorrecting some but also may need slight decrease in her long acting insulin. Due for labs today. BP in range. Stopped smoking Patient Instructions Decrease bedtime insulin to 75 units. Determine if you still are having low BG after correcting or is the issue resolved. If any low BG readings after correction, change ISF to 20 Continue working at 4 BG readings daily and in pairs. 50% correction at bedtime Orders Orders: Plan Detail Additional Comments 1. Please schedule follow up in 3-4 weeks 2. Lab work one week before appointment. 3. Discussed importance of regular exercise and recommend starting or continuing a regular exercise program for good health. 4. The patient was encouraged to lose weight for good health 5. The importance of monitoring blood sugar regularly was reviewed. 6. The importance of monitoring the HBA1c level regularly was reviewed. 7. The importance of prper foot care and regularly checking feet to prevent sores and loss of limbs was reviewed. 8. The importance of keeping BP at or below 130/80 to prevent stroke, heart attacks, kidney failure, blindness was reviewed. Spent approximately 30 minutes with patient with over 50% of time spent in discussion and counseling regarding medication adjustment, symptoms and treatment of hypoglycemia, diet adherence, and checking BG before driving. Coding Level of Care Code Off vis,est,level 3 Diagnoses Type 1 diabetes mellitus without complication E10.9 Diabetes mellitus complication status: without complication Time Spent (min) 30 10/15/17 1241 <Electronically signed by Radha MAN> Date Radha MAN Cosigner Signature: Date (if applicable) CC: MICROALB:CREAT Collected: 10/15/2017 Status: F Source: DONTA RATIO,RANDOM UR 12:00 PM [facility] [place] REPOS[facility] TYPE CODE TESTS RESULT OUT OF RANGE REFERENCE UNITS LAB L501.1200 NO RANGE EST. mg/dL Normal UR CREAT 199.00 LAB L502.0500 NO RANGE EST. mg/L Normal 24.6 MICROALBUMIN ,UR LAB L502.0600 <30 mg/g CRE mg/g CRE Normal 12.4 MALB:CREAT Performed By: #### L502.0250 #### [facility] [address] [place], [address] HEMOGLOBIN A1C Collected: 10/15/2017 Status: F Source: DONTA 12:00 PM [facility] [place] REPOS[facility] TYPE CODE TESTS RESULT OUT OF RANGE REFERENCE UNITS LAB L501.9985 4.2-6.3 % High HGB A1C 9.8 Performed By: #### L501.9985 #### [facility] [address] [place], [address] ENDOCRINOLOGY VISIT Observed: 10/06/2017 Status: F Source: DON[place] REPORT 8:13 AM [facility] [place] [facility]POS[facility] [address] [place] [address] OFFICE VISIT Date of Service: 10/01/17 MR#: [id number] Acct: [id number] Name: HILDA DESIR Rep #: [id number] : 2000 Provider: Radha Kan NP Age/Sex: 17/F Location: [facility] [place] Status: Signed HPI History of present illness Hilda Desir is a 17 year old female who presents for follow up of diabetes type 1. Diagnosed at age 9. Currently on levemir total of 85 units daily and novolog 15 units for 50 carbs. She reports she has been busy as she is caring for her 2 siblings while mother is gone from home in rehab. States she is taking her insulin but has not been checking BG with any consistency. Pt denies difficulty with injections or self monitoring of BG. Denies any signs of infection or irritation at site of injections. Reports taking insulin as directed Meter downloaded. BG 50-400 range with no recheck after high BG noted. At time of visit: -Pt denies symptoms of hypertensive emergency (CP,SOB,HILARIO, or blurred vision) and hypotension(dizziness or lightheadedness) -Pt denies symptoms of hypoglycemia ( sweaty, confusion, anxiety, tremor, hunger, palpitations) and hyperglycemia ( polydipsia, polyuria) -Pt denies potential medication adverse effect. Hypoglycemia Aware of hypoglycemia: yes Able to self treat low BG: Yes Frequent low Blood sugar: No Has supply of glucagon: Yes SMBG inconsistent 50-400 Diet 2-3 meals daily, snacks Does carb count Type: type 1 Glucose control symptoms: Reports high fasting glucose Weight and fatigue symptoms: Denies snoring Cardiopulmonary symptoms: Denies chest pain at rest, dyspnea on exertion, lightheadedness or myalgias GI symptoms: Denies constipation, diarrhea, nausea/dyspepsia or vomiting Other symptoms: Denies blurry vision or change in vision Self monitoring: No (Not consistently) Diabetes education in past year: Yes Glucose testing: demonstrates correct use of meter, understands testing schedule Sick day education - understands ketone testing: Yes Physical activity: regular Exam Const General: comfortable Nutritional Appearance: well nourished Orientation: oriented to person [facility] Head: normal to inspection, atraumatic Ears: hearing grossly normal bilaterally Nose: external nose normal Mouth: oral mucosae normal, moist mucous membranes abnormal Teeth and gingiva: dentition normal Eyes General: appearance normal, both eyes and all related structures Eyelids: eyelids normal Conjunctivae: conjunctivae normal Sclera: sclerae normal Pupils: PERRL Neck Neck: normal visual inspection, full ROM Neck mass: No Resp Effort AND Inspection: normal respiratory effort, able to speak in complete sentences, symmetric chest movement Auscultation: Bilateral: Clear to Auscultation Cardio Rate: regular rate Rhythm: regular rhythm Heart Sounds: S1 normal, S2 normal, no murmurs, no rubs GI Inspection: normal to inspection Auscultation: normal bowel sounds Palpation: soft, no guarding Skin General: no rashes or lesions noted Wounds: no wounds Diabetic Foot Pulses: L dorsalis pedis pulse: normal, R dorsalis pedis pulse: normal Monofilament test: Left foot: normal, Right foot: normal Neuro General: moves all extremities, gait normal Cranial Nerves: CN's II-XI intact bilaterally Extrem General: normal to inspection, normal capillary refill Psych Appearance: well kempt Mood: congruent mood Affect: normal affect Speech and Movement: speech and movement normal Attitude: cooperative Thought Process: normal Thought Content: normal Judgment: judgment good Intake Vital Signs10/01/17 Height 4 ft 11 in 10/01/17 Weight: 128 lb 10/01/17 Body Mass Index (BMI) 25.8 10/01/17 Blood Pressure 111/75 10/01/17 Blood Pressure Location Lt popliteal 10/01/17 Blood Pressure Position Sitting Intake Visit Reasons: follow up Meteorology Professor Required: No Accompanied by: Self Is patient in pain?: No Allergies Egg Derived Allergy (Verified 10/01/17 15:32) Other Penicillins Allergy (Verified 10/01/17 15:32) Unknown Sulfa (Sulfonamide Antibiotics) Allergy (Verified 10/01/17 15:32) Unknown ibuprofen Adverse Reaction (Verified 10/01/17 15:32) Vomiting prednisone Adverse Reaction (Verified 10/01/17 15:32) Vomiting bee stings Allergy (Severe, Uncoded 10/01/17 15:32) Unknown Medications Albuterol Inhaler [Ventolin Hfa (SP)] 1 - 2 puff INHALATION Q6H PRN PRN 07/05/15 [History Confirmed 10/01/17] Cetirizine HCl [Zyrtec] 10 mg PO QHS 07/05/15 [History Confirmed 10/01/17] Epinephrine [Epi Pen] 0.3 mg IM X1 #1 syringe 02/09/17 [Rx Confirmed 10/01/17] acetone (urine) test strips See Dose Instructions .ROUTE .MEDSUPPLY #25 ea 07/03/17 [History Confirmed 10/01/17] etonogestrel 68 mg subdermal implant 1 implant SUBDERMAL ONCE 07/03/17 [History Confirmed 10/01/17] glucagon (human recombinant) 1 mg injection kit 1 mg IM ONCE 07/03/17 [History Confirmed 10/01/17] insulin aspart U-100 100 unit/mL subcutaneous pen 15 unit SC TID ml 07/03/17 [History Confirmed 10/01/17] insulin detemir (U-100) 100 unit/mL subcutaneous solution 80 unit SC QHS ml 07/03/17 [History Confirmed 10/01/17] insulin syringe-needle U-100 1 mL 31 gauge x 12/03 See Dose Instructions .ROUTE .MEDSUPPLY #10 ea 07/03/17 [History Confirmed 10/01/17] blood sugar diagnostic strips See Dose Instructions .ROUTE .MEDSUPPLY #240 ea 09/10/17 [Rx Confirmed 10/01/17] blood-glucose meter kit See Dose Instructions .ROUTE .MEDSUPPLY #1 ea 09/10/17 [Rx Confirmed 10/01/17] Ondansetron [Zofran Odt] 4 mg PO Q6H PRN PRN #10 tab 09/12/17 [Rx Confirmed 10/01/17] Is last menstrual period known: No Post menopausal: No Patient : No Nurse's Note: blood sugars : low : 52 high : 457 PFSH Medical History Asthma (Acute) Diabetes type 1, controlled (Acute) Surgical History History of placement of ear tubes (Acute) Family History Grandmother Diabetes Sister Asthma Brother Asthma Social History Smoking Status: Never smoker second hand exposure: No alcohol intake: never substance use type: does not use ROS Const Constitutional: Positive for fatigue and change in appetite; no anorexia, body ache, chills, fever(s), frequent falls, decreased energy, malaise, night sweats, weakness, weight change, sleep problems, abnormal sleep pattern, other, headache(s), snoring or excessive sweating Eyes Eyes: No blurry vision, change in vision, double vision, discharge, dry eyes, bulging eyes, floaters, visual disturbances, eye pain, light sensitivity, spots in vision, tunnel vision or other ENT ENT: No abnormal hearing, ear pain, ear discharge, ear pressure, hearing loss, tinnitus, dizziness/vertigo, balance problems, nosebleed/epistaxis, nasal congestion, nasal obstruction, nose pain, sinus pressure, sinus pain, nasal discharge, post nasal drip, headache(s), facial pain, dental pain, dry mouth, bad breath, hoarseness, lip swelling, mouth lesions, mouth pain, sore throat, tongue swelling, throat swelling, other, neck pain or difficulty swallowing Resp Respiratory: Positive for shortness of breath; no cough, change in phlegm color, chest congestion, excessive phlegm production, hemoptysis, pain on inspiration, pain with cough, snoring, stridor, wheezing or other Cardio Cardiology: No chest pain at rest, chest pain with exertion, leg pain with exertion, excessive sweating, shortness of breath, dyspnea on exertion, generalized swelling, irregular heart rhythm, lightheadedness, orthopnea, radiating jaw, neck or arm pain, fast heart rate, slow heart rate, palpitations or other Gastro GI: No abdominal pain, belching, bloating, change in bowel habits, change in stool character, coffee ground emesis, constipation, cramping, diarrhea, heartburn, difficulty swallowing, feeling full early, excessive flatus, incontinent of stools, Vomiting blood/hematemesis, blood in stool, loose stools, Black,tarry stools, nausea/dyspepsia, pain with swallowing, vomiting or other Genitourinary-Female: Positive for light periods; no difficulty urinating, burning urination, painful urination, urinary incontinence, urinary frequency, urinary urgency, urinary hesitancy, urinary retention, blood in urine, Frequent nighttime urination/ nocturia, post void dribbling, suprapubic fullness, side pain, sexual problems, genital lesions, genital itching, hot flashes, abnormal periods, abnormal vaginal bleeding, absent period, painful periods, heavy periods, difficulty getting , painful intercourse, pelvic pain, vaginal dryness, vaginal odor, Vaginal Itching or other Musc Musculoskeletal: Positive for tingling (L foot, started yesterday); no abnormal walking, joint pain, back pain, deformity, joint swelling, limited range of motion, loss of height, muscle cramps, muscle weakness, decreased muscle mass, body aches, neck pain, numbness, radiating pain into limb, stiffness or other Neuro Neurology: Positive for tingling (L foot, started yesterday); no frequent falls, weakness, visual disturbances, abnormal hearing, headache(s), abnormal walking or numbness Psych Psychiatric: No abnormal sleep pattern, Positive for change in appetite Endo Endocrine: Positive for fatigue; no other or excessive sweating Aller/Imm Allergy/Immunologic: No lip swelling, tongue swelling, throat swelling or wheezing Assessment AND Plan Problems 1. Type 1 diabetes mellitus without complication E10.9 Plan Not being consistent in her management of diabetes. Discussed importance of checking BG consistently and in pairs. Currently not working or in school so she is given importance of making sure she is focused on diabetes. Control portions Food selections should be healthy Choose more low carb vegetables Avoid snacks and desserts. Drink water Exercise daily Eat more fresh foods, not canned or processed Eat more slowly Not exercising. BP in range She is not sure when her eye exam is due. Orders Orders: Plan Detail Additional Comments 1. Please schedule follow up in 3 months. 2. Lab work one week before appointment. 3. Discussed importance of regular exercise and recommend starting or continuing a regular exercise program for good health. 4. The patient was encouraged to lose weight for good health 5. The importance of monitoring blood sugar regularly was reviewed. 6. The importance of monitoring the HBA1c level regularly was reviewed. 7. The importance of prper foot care and regularly checking feet to prevent sores and loss of limbs was reviewed. 8. The importance of keeping BP at or below 130/80 to prevent stroke, heart attacks, kidney failure, blindness was reviewed. Spent approximately 30 minutes with patient with over 50% of time spent in discussion and counseling regarding medication adjustment, symptoms and treatment of hypoglycemia, diet adherence, and checking BG before driving. Coding Level of Care Code Off vis,est,level 4 Diagnoses Type 1 diabetes mellitus without complication E10.9 Diabetes mellitus complication status: without complication Time Spent (min) 30 10/06/17 0813 <Electronically signed by Radha MAN> Date Radha MAN Cosigner Signature: Date (if applicable) CC: EMERGENCY DEPARTMENT Observed: 09/14/2017 Status: F Source: [place] SUMMARY 7:59 AM [facility] REPOSITORY [facility] Medical Records Department [address] [place] [address] Emergency Department Summary 09/12/17 1526 MR#: [id number] Acct: [id number] Name: HILDA DESIR Rep #: [id number] : 2000 17 From: Riley Carvalho DO PCP: Jacqui Kothari MD Status: DEP ER - ER Visit Summary Date of Service: 09/12/17 Chief Complaint: Vomiting and diarrhea History of Present Illness: The patient is a 17 F is a history of type 1 diabetes. She states that last night during the middle the night she began have vomiting diarrhea. This diarrhea was this morning. She continues to feel nauseated. She is concerned she might go into DKA. No recent antibiotics. No bad food exposures or camping trips. She has city water. Physical Examination: Afebrile slightly tachycardic at 112 Gen: Well-nourished well-developed Head: Normocephalic atraumatic Eyes: Perrl EOMI ENT: TMs clear no rhinorrhea moist mucous membranes Neck: Supple no lymphadenopathy no JVD nontender CVS: Regular rate rhythm no murmurs normal S1-S2 Respiratory: No distress clear to auscultation bilaterally chest nontender Abdomen: Soft nontender nondistended normal bowel sounds no masses Back: Nontender Extremity: Nontender no edema Skin: Normal color no rash Neuro: alert orientated 3 CN II-XII intact normal strength sensation reflexes gait cerebellar Psych: Normal affect normal mood Test Results: Count 11.3. CO2 of 37 anion gap is 7. Glucose 226. Lipase and liver enzymes normal. test negative. Emergency Department Course and Treatment: Received IV fluids. She has been resting comfortably. She has not had any further diarrhea or vomiting. I will discharge her home with a prescription for Zofran. Encouraged her to keep a close eye on her blood sugar and take insulin. She is comfortable with this plan return if worsening Impression: 1. Gastroenteritis This note was generated with Vizolution dictation software. It may contain incorrect words, spelling, and punctuation that were not noted in review of the chart prior to signing ED Disposition - Plan for ED Patient: Disposition: Home or Assisted Living Chief Complaint: Nausea/Vomiting/Diarrhea Instructions: ED Gastroenteritis Viral Prescriptions: Ondansetron [Zofran Odt] 4 mg PO Q6H PRN PRN #10 tab PRN Reason: Nausea Referrals: Jacqui Kothari MD [Primary Care Provider] - 3-5 Days if not improving What to do if you have Problems For any increased pain, shortness of breath, bleeding, nausea or vomiting, chest pain, or any unexpected problems, contact your Primary Care Provider. Call [facility] ([phone]) or report to the closest Emergency Room. Call 911 if necessary. 09/14/17 0759 <Electronically signed by Riley Carvalho DO> Date Riley Carvalho DO Cosigner Signature (If Indicated): Date CC: MD Jacqui Kothari CBC W/DIFF, AUTOMATED Collected: 09/12/2017 Status: F Source: [place] 2:15 PM [facility] REPOSITORY TYPE CODE TESTS RESULT OUT OF RANGE REFERENCE UNITS LAB L100.1000 4.4-11.0 K/mm3 High WBC 11.3 LAB L100.1200 4.2-5.4 M/mm3 Normal RBC 5.34 LAB L100.1300 12.0-15.0 g/dl High HGB 15.1 LAB L100.1400 37-47 % Normal HCT 44.7 LAB L100.1500 81-99 fL Normal MCV 83.7 LAB L100.1600 27.0-32.0 pg Normal MCH 28.3 LAB L100.1700 32-36 g/gl Normal MCHC 33.8 LAB L100.1810 11.6-14.6 % Normal RDW CV 13.5 LAB L100.1820 35.1-43.9 fl Normal RDW SD 40.6 LAB L100.1900 150-450 K/mm3 Normal PLT 267 LAB L100.2000 6.2-12.0 fl Normal MPV 8.8 LAB L100.2100 47-70 % High NEUT% 88.1 LAB L100.2200 19-41 % Low LY% 8.4 LAB L100.2300 0-10 % Normal MONO% 2.5 LAB L100.2400 0-5 % Normal EO% 0.7 LAB L100.2500 0-1 % Normal BASO% 0.1 LAB L100.2550 0.0-0.9 % Normal IM GRAN % 0.200 Result Comment: IG% - Immature Granulocytes (promyelocytes, myelocytes and metamyelocytes) > 1% indicates that a LEFT SHIFT is Present. LAB L100.2620 2.0-7.7 X10 3/uL High Absolute Neut 9.9 LAB L100.2720 0.83-4.51 X10 3/ul Normal Absolute Lymph 0.95 Performed By: #### L100.0100 #### [facility] [address] [place], [place], [address] COMPREHENSIVE METABOLIC Collected: 09/12/2017 Status: F Source: [facility] 2:15 PM [facility] REPOSITORY TYPE CODE TESTS RESULT OUT OF RANGE REFERENCE UNITS LAB L501.0100 74-106 mg/dL High GLU 226 Result Comment: Glucose result greater than or equal to 200 mg/dL suggests DIABETES MELLITUS per A.D.A. criteria. Please note revised GLUCOSE reference range effective 2017. LAB L501.1000 7-18 mg/dL Normal BUN 17 LAB L501.1100 0.55-1.02 mg/dL Normal CREAT,SERUM 0.59 Result Comment: The validity of the calculated GFR AND GFRAA in patients over 70 years has not been determined. Clinical correlation is essential. LAB L501.1110 >60 mL/min Normal EST GFR 140 Result Comment: Non- GFR Calc LAB L501.1115 >60 mL/min Normal EST GFR - AA 169 Result Comment: GFR Calc LAB L501.1255 ml/min Normal Estimated CRCL 133.40 LAB L501.1300 10-20 RATIO High BUN/CRE 29.0 LAB L501.1500 6.4-8. g/dL 2 T PROT Normal 7.7 LAB L501.1800 3.2-5. g/dL 0 ALB Normal 3.8 LAB L501.1950 2.2-4. g/dL 2 GLOB Normal 3.9 LAB L501.2000 0.9-2. RATIO 4 A/G Normal 1.0 LAB L501.2200 8.5-10 mg/dL Low .1 CA 8.4 LAB L501.4100 15-37 U/L Low AST 8 LAB L501.4305 45-117 U/L ALK P Normal 102 LAB L501.4405 13-56 U/L ALT Normal 21 Result Comment: Please note revised ALT reference range effective 2017. LAB L501.4600 0.20-1.00 mg/dL Normal T BILI 0.90 LAB L501.5300 136-145 mmol/L Normal NA 140 LAB L501.5600 3.5-5.1 mmol/L Normal K 3.8 LAB L501.5900 98-107 mmol/L Normal CL 103 LAB L501.6100 21.0-32.0 mmol/L Normal CO2 30.0 LAB L501.6200 5-15 Normal GAP 7 Performed By: #### L500.4050, L501.2450 #### [facility] [address] [place], [address] LIPASE Collected: 09/12/2017 Status: F Source: [place] 2:15 PM [facility] REPOSITORY TYPE CODE TESTS RESULT OUT OF REFERENCE UNITS RANGE LAB L501.2450 73-393 U/L Low LIPASE 62 Performed By: #### L500.4050, L501.2450 #### [facility] [address] [place], [address] ,SERUM,HCG QUALI. Collected: Status: F Source: [place] 09/12/2017 2:15 PM [facility] REPOSITORY TYPE CODE TESTS RESULT OUT OF REFERENCE UNITS RANGE LAB L700.6700 =>Qualitative mIU/mL Normal HCG Qual < 1 triggr LAB L700.7000 0-9 Nonpreg Negative Normal HCGSQUAL NEGATIVE Performed By: #### L700.6800 #### [facility] [address] [place], [address] BEDSIDE GLUCOSE Collected: 09/12/2017 Status: F Source: [place] 1:32 PM [facility] REPOSITORY TYPE CODE TESTS RESULT OUT OF REFERENCE UNITS RANGE LAB L501.080 70-110 mg/dL High BEDSIDE GLU 237 Result Comment: MANAGEMENT OF PATIENT CARE PER NURSING PROTOCOL Performed By: #### L501.080 #### [facility] Point of Care [address] [place] [address] ALLERGIES ALLERGIES DATE TYPE / CODE NAME / CODE REACTION SEVERITY SOURCE 08/08/2018 Drug Penicillins/F001 Unknown Unknown [place] Allergy/154063506( 987982(RXNORM) [facility] Hospital Repository 08/08/2018 Drug Sulfa Unknown Unknown [place] Allergy/489259251( (Sulfonamide [facility] SNOM[facility]) Antibiotics)/F00 Hospital 2120587(RXNORM) Repository 08/08/2018 Drug Egg Other Unknown [place] Allergy/521256056( Derived/Q6118845 [facility] SNOMED CT) 08(RXNORM) Hospital Repository 08/08/2018 Drug prednisone/F0060 Vomiting Unknown [place] Allergy/587483778( 79333(RXNORM) [facility] SNOMED CT) Hospital Repository 08/08/2018 Drug milk/J689792564( Diarrhea Unknown [place] Allergy/803525690( RXNORM) [facility] SNOMED CT) Hospital Repository 08/08/2018 Miscellaneous bee stings Unknown [place] Allergy/660813773( [facility] SNOMED CT) Hospital Repository 04/01/2018 Drug ibuprofen/V68242 Vomiting Unknown [place] Allergy/225641385( 2377(RXNORM) [facility] SNOMED CT) Hospital Repository 04/01/2018 Drug insulin Unknown [place] Allergy/794852402( glargine/Z595936 [facility] SNOMED CT) 131(RXNORM) Hospital Repository 08/10/2012 DRUG CORN GI UPSET [place] INGREDI/004346582( [facility] SNOMED CT) [place] Repository 08/10/2012 DRUG EGG OTHER: SEE C Mariee INGREDI/616675017( [facility] SNOMED CT) [place] Repository 12/31/2011 DRUG LACTASE GI UPSET [place] INGREDI/171692714( [facility] SNOMED CT) [place] Repository 12/31/2011 Drug PENICILLINS RASH [place] Class/014864514(SN [facility] OMED CT) [place] Repository 12/31/2011 DRUG/834080156(SNO SULFATRIM DS Vomiting Mariee MED CT) Clinic Main [place] Repository ENCOUNTERS ENCOUNTERS ADMIT/DISCHARGE ACCOUNT ADMITTING ENCOUNTER LOCATION SOURCE NUMBER CLASS 08/08/2018/08/08/19 [id number] Emergency [address] ing:ED Repository 07/02/2018 [id number] [place] Ambulatory BMSBuilding:[place].[facility] Repository 07/02/2018/07/04/20 [id number] [place] Inpatient [facility] 18 Encounter [facility] ing:WR8Bhoh: Repository WD864Tzy: 1 07/02/2018 [id number] [place] Ambulatory BMSBuilding:[place].[facility] Repository 07/02/2018 [id number] [place] Ambulatory BMSBuilding:[place].[facility] Repository 06/29/2018/06/29/20 [id number] Emergency [address] ing:ED Repository 04/01/2018/04/01/20 [id number] Emergency [address] ing:ED Repository 01/09/2018/01/13/20 [id number] Ambulatory [address] Repository 01/09/2018/01/10/20 [id number] Ambulatory [address] Repository 12/25/2017/12/26/19 [id number] Emergency [address] ing:ED Repository 11/12/2017 [id number] Ambulatory BMSBuilding:[place].[facility] Repository 10/15/2017 [id number] Ambulatory [facility] ing:LAB Repository 10/15/2017/10/16/19 [id number] Ambulatory BMSBuilding:B [place] 18 [facility] Repository 10/01/2017/10/02/19 [id number] Ambulatory BMSBuilding:[place] 18 .[facility] Repository 09/12/2017/09/12/19 [id number] Emergency [address] ing:ED Repository PAYERS PAYERS ENCOUNTER GUARANTOR PAYER SUBSCRIBER SOURCE 08/08/2018 HILDA Hansen Primary HILDA M [place] [id number] Insurance:CARESOURCEP KELLEYDOB: [facility] DALEY Number: [id number] Medical Center [address]Nvh: [id number] Repository Date:2018-08-08P O (HP) [address]ATTN: [place] [address]GB: 08/08/2018 Secondary NOT GIVENUNK [place] Insurance:SELF PAY [facility] Number: Effective Repository Date:2018-08-08 07/02/2018 HILDA Hansen Primary HILDA [place] [id number] Insurance:CARESOURCEP [facility] Number: [id number] Medical Center [address]Cdm: [id number] Repository Date:2018-07-02P O (HP) [address]ATTN: [place] [address]TI: 07/02/2018 Secondary NOT GIVENUNK [place] Insurance:SELF PAY [facility] Number: Effective Repository Date:2018-07-02 07/02/2018 HILDA Hansen Primary HILDA [place] [id number] Insurance:CARESOURCEP KELLEYDOB: [facility]IN[facility] DALEY Number: [id number] Medical Center [address]Fgn: [id number] Repository Date:2018-07-02P O (HP) [address]ATTN: [place] [address]IL: 07/02/2018 Secondary NOT GIVENUNK [place] Insurance:SELF PAY [facility] Number: Effective Repository Date:2018-07-02 07/02/2018 HILDA Hansen Primary HILDA [address] Insurance:CARESOURCEP KELLEYDOB: [facility] Number: [id number] Medical Center [address]Vyk: [id number] Repository Date:2018-07-02P O (HP) [address]ATTN: [place] [address]YD: 07/02/2018 Secondary NOT GIVENUNK [place] Insurance:SELF PAY [facility] Number: Effective Repository Date:2018-07-02 07/02/2018 HILDA Hansen Primary HILDA [place] [id number] Insurance:CARESOURCEP [facility]DOB[facility] Number: [id number] Medical Center [address]Car: [id number] Repository Date:2018-07-02P O (HP) [address]ATTN: [place] [address]LO: 07/02/2018 Secondary NOT GIVENUNK [place] Insurance:SELF PAY [facility] Number: Effective Repository Date:2018-07-02 06/29/2018 HILDA Hansen Primary HILDA [id number] Insurance:CARESOURCEP KELLEYDOB: [facility]WE[facility] Number: [id number] Medical Center [address]Gij: [id number] Repository Date:2018-06-29P O () [address]ATTN: [place] [address]BE: 06/29/2018 Secondary NOT GIVENUNK [place] Insurance:SELF PAY [facility] Number: Effective Repository Date:2018-06-29 04/01/2018 HILDA Hansen Primary HILDA [address] Insurance:CARESOURCEP KELLEYDOB: [facility]JOTWE[facility] Number: [id number] Medical Center [address]Aic: [id number] Repository Date:2018-04-01 O (HP) [address]ATTN: [place] [address]PY: 04/01/2018 Secondary NOT GIVENUNK [place] Insurance:SELF PAY [facility] Number: Effective Repository Date:2018-04-01 12/25/2017 HILDA Hansen Primary HILDA M [place] [id number] Insurance:CARESOURCEP KELLEYDOB: [facility] PRABHJOTWE[facility]ITALdavy Number: [id number] Medical Center [address]Vje: [id number] Repository Date:2017-12-25P O (HP) [address]ATTN: [place] [address]WU: 12/25/2017 Secondary NOT GIVENUNK [place] Insurance:SELF PAY [facility] Number: Effective Repository Date:2017-12-25 11/12/2017 HILDA Hansen Primary HILDA [place] [id number] Insurance:CARESOURCEP KELLEYDOB: [facility] Number: [id number] Medical Center [address]Jhg: [id number] Repository Date:2017-10-15P O (HP) [address]ATTN: [place] [address]ZV: 11/12/2017 Secondary NOT GIVENUNK [place] Insurance:SELF PAY [facility] Number: Effective Repository Date:2017-10-15 10/15/2017 HILDA Hansen Primary HILDA [place] [id number] Insurance:CARESOURCEP KELLEYDOB: [facility] Number: [id number] Medical Center [address]Epf: [id number] Repository Date:2017-10-15P O (HP) [address]ATTN: [place] [address]MO: 10/15/2017 Secondary NOT GIVENUNK [place] Insurance:SELF PAY [facility] Number: Effective Repository Date:2017-10-15 10/15/2017 HILDA Hansen Primary HILDA [address] Insurance:CARESOURCEP KELLEYDOB: [facility] Number: [id number] Medical Center [address]Wpk: [id number] Repository Date:2017-10-01P O (HP) [address]ATTN: [place] [address]IB: 10/15/2017 Secondary NOT GIVENUNK [place] Insurance:SELF PAY [facility] Number: Effective Repository Date:2017-10-15 10/01/2017 HILDA Hansen Primary HILDA [address] Insurance:CARESOURCEP THANGDOB: Community davy HILARIO Number: [id number] Medical Center [address]Pum: [id number] Repository Date:2017-09-16P O (HP) [address]ATTN: [place] [address]OR: 10/01/2017 Secondary NOT GIVENUNK [place] Insurance:SELF PAY [facility] Number: Effective Repository Date:2017-09-16 09/12/2017 HILDA Hansen Primary HILDA [address] Insurance:CARESOURCEP THANGDOB: [facility] davy Hilario Number: [id number] Medical Center [address]Kkr: [id number] Repository Date:2017-09-12P O () [address]ATTN: [place] [address]WU: 09/12/2017 Secondary NOT GIVENUNK [place] Insurance:SELF PAY [facility] Number: Effective Repository Date:2017-09-12
== END 2018-07-04 14:25 | disposition home or self-care (01) | DRG 420 ==
LOC: ED 11:33 → ICU 12:15 → MS2 07-03 09:54
PROVIDERS: Admitting Provider Internal Medicine; Emergency Provider Emergency Medicine; Family Provider Pediatrics; PCP Pediatrics; Referring Provider Internal Medicine; Visit Provider Internal Medicine
DX: E10.10 Type 1 diabetes mellitus with ketoacidosis without coma (principal); Z79.4 Long term (current) use of insulin; Z87.891 Personal history of nicotine dependence; J45.909 Unspecified asthma, uncomplicated; E86.0 Dehydration; E87.6 Hypokalemia; A08.4 Viral intestinal infection, unspecified; Z79.899 Other long term (current) drug therapy
CPT/HCPCS: 36415; 71045; 80048; 80053; 81001; 81025; 82009; 82803; 82962; 83036; 83690; 83735; 84100; 84132; 85025; 93005; 97802; 99283; 99284; J7030; A4216; J2405; J7799

== ENCOUNTER 2018-08-08 00:27 | Emergency (ER) | payer MEDICAID, SELFPAY ==
[2018-07-02 12:42] VITALS: BMI 24.3
[2018-08-08 00:27] VITALS: BP 125/73; PULSE 115; RESP 20; TEMP 37.1; O2SAT 97; BMI 27.4
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
[2018-08-08 02:00] VITALS: BP 118/70; PULSE 79; RESP 16; O2SAT 97
--- OUTSIDE RECORDS SUMMARY | 2018-10-12 08:57 | XMS RPT_ITS ---
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 ACETONE SERUM Collected: 07/02/2018 Status: F Source: [place] 10:34 AM [facility] REPOSITORY TYPE CODE TESTS RESULT OUT OF REFERENCE UNITS RANGE LAB L501.6900 NEG High ACETONE SERUM SMALL Performed By: #### L501.6900 #### [facility] [address] [place], [address] CHEST 1 VIEW Observed: 07/02/2018 Status: F Source: [place] (PORTABLE) 10:17 AM [facility] REPOSITORY [facility] Imaging Services [address] [place] [address] Chest 1 View (Portable) MR#: [id number] Acct: [id number] Name: HILDA DESIR Rep #: [id number] : 2000 F 18 From: Akil Deutsch MD PCP: Martin Arellano MD Status: PRE ER Study: Chest 1 View (Portable) Date of Exam: 07/02/18 Exam# [id number] Ordering Dr: Fide Covington MD STUDY: X-RAY [...] Akil Deutsch MD at 10:45 EST Tel [phone], Service support , CC: Martin Arellano MD; FIDE COVINGTON MD Feed Research Aide: Signed URINALYSIS, COMPLETE Collected: 07/02/2018 Status: F Source: [place] 10:15 AM [facility] REPOSITORY Order Comment: Order Date: 07/02/18 Has pt arrived? Y How was Urine Obtained? 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, [address] CBC W/DIFF, AUTOMATED Collected: 06/29/2018 Status: F Source: [place] 11:20 AM [facility] REPOSITORY TYPE CODE TESTS RESULT OUT OF [...] Lymph 1.34 Performed By: #### L100.0100 #### [facility] [address] [place], [address] COMPREHENSIVE METABOLIC Collected: 06/29/2018 Status: F Source: [place] [facility] 11:20 AM [facility] REPOSITORY TYPE CODE TESTS RESULT OUT OF [...] 6 GAP Performed By: #### L500.4050 #### [facility] [address] [place], [address] BEDSIDE GLUCOSE Collected: 06/29/2018 Status: F Source: [place] 11:19 AM [facility] REPOSITORY TYPE CODE TESTS RESULT OUT OF REFERENCE UNITS RANGE LAB L501.080 70-110 mg/dL High BEDSIDE GLU 229 Result Comment: MANAGEMENT OF PATIENT CARE PER NURSING PROTOCOL Performed By: #### L501.080 #### [facility] Point of Care [address] [place] [address] ,URINE Collected: 06/29/2018 Status: F Source: [place] 11:07 AM [facility] REPOSITORY Order Comment: Order Date: 06/29/18 TYPE CODE TESTS RESULT OUT OF REFERENCE UNITS RANGE LAB L400.8000 Negative Normal HCGUQUAL Negative Result Comment: Very dilute urine specimens, as indicated by a low specific gravity, may not contain sales representative public utilities levels of hCG. If is still suspected, a first morning urine specimen should be collected 48 hours later and tested. Performed By: #### L400.7600 #### [facility] [address] [place], [address] URINALYSIS, COMPLETE Collected: 06/29/2018 Status: F Source: [place] 11:07 AM [facility] REPOSITORY Order Comment: Order Date: 06/29/18 How [...] URINE RARE Performed By: #### L400.0001 #### [facility] [address] [place], [address] EMERGENCY DEPARTMENT Observed: 04/01/2018 Status: F Source: [place] SUMMARY 5:21 PM [facility] REPOSITORY [facility] Medical Records Department [address] [place] [address] Emergency Department Summary 04/01/18 1357 MR#: [id number] Acct: [id number] Name: HILDA DESIR Rep #: [id number] : 2000 17 From: Zeeshan Wilson MD PCP: Martin Arellano MD Status: DEP ER - ER Visit Summary Date of Service: 04/01/18 Chief Complaint: Headache and leg pain History of Present Illness: The patient is a [address] Espinoas. She has a history of type 1 [...] 3. Hypoglycemia. This note was generated with [employer] dictation software. It may contain incorrect words, [...] problems, contact your Primary Care Provider. Call [facility] ([phone]) or report to the closest Emergency Room. Call 911 if necessary. 04/01/18 1721 <Electronically signed by Zeeshan Wilson MD> Date Zeeshan Wilson MD Cosigner Signature (If Indicated): Date CC: Martin Arellano MD BEDSIDE GLUCOSE Collected: 04/01/2018 Status: F Source: [place] 2:46 PM [facility] REPOSITORY TYPE CODE TESTS RESULT OUT OF REFERENCE UNITS RANGE LAB L501.080 70-110 mg/dL Low BEDSIDE GLU 56 Result Comment: MANAGEMENT OF PATIENT CARE PER NURSING PROTOCOL Performed By: #### L501.080 #### [facility] Point of Care [address] [place] [address] CBC W/DIFF, AUTOMATED Collected: 04/01/2018 Status: F Source: [place] 2:16 PM [facility] REPOSITORY TYPE CODE TESTS RESULT OUT OF [...] Lymph 1.26 Performed By: #### L100.0100 #### [facility] [address] [place], [place], [address] BASIC METABOLIC Collected: 04/01/2018 Status: F Source: [place] PROFILE ([facility]) 2:16 PM [facility] REPOSITORY TYPE CODE TESTS RESULT OUT OF [...] Normal 8 Performed By: #### L500.2500 #### [facility] [address] [place], [address] ,SERUM,HCG QUALI. Collected: Status: F Source: [place] 04/01/2018 2:16 PM [facility] REPOSITORY TYPE CODE TESTS RESULT OUT OF REFERENCE UNITS RANGE LAB L700.6700 =>Qualitative mIU/mL Normal HCG Qual < 1 triggr LAB L700.7000 0-9 Nonpreg Negative Normal HCGSQUAL NEGATIVE Performed By: #### L700.6800 #### [facility] [address] [place], [address] CPK TOTAL, CREATINE Collected: 04/01/2018 Status: F Source: [place] 2:16 PM [facility] REPOSITORY TYPE CODE TESTS RESULT OUT OF RANGE REFERENCE UNITS LAB L501.3620 26-192 U/L Normal CPK TOTAL 43 Performed By: #### L501.3620 #### [facility] [address] [place], [address] BEDSIDE GLUCOSE Collected: 04/01/2018 Status: F Source: [place] 1:50 PM [facility] REPOSITORY TYPE CODE TESTS RESULT OUT OF REFERENCE UNITS RANGE LAB L501.080 70-110 mg/dL High BEDSIDE GLU 126 Result Comment: MANAGEMENT OF PATIENT CARE PER NURSING PROTOCOL Performed By: #### L501.080 #### [facility] Point of Care [address] [place] [address] CNOV Observed: 01/09/2018 Status: COMPLETED Source: [place] 3:45 PM [facility] REPOSITORY Office Visit (PEDSWS) HILDA DESIR ([id number]) 2000 F Date Time Provider Department 01/09/18 [...] Reason for Visit: Follow Up [171] Cmt: [facility] for abd pain Primary Visit Diagnosis:Dysuria [R30.0] Other Visit Diagnoses:Yeast infection [B37.9] Type 1 diabetes mellitus without complication (HCC) [E10.9] Order(s):UA DIP B/O [7117950] Order #: [id number] URINE CULTURE [SQURCUL] Order #: [id number]. #:[id number] fluconazole (DIFLUCAN) 150 mg tabletTake 1 tablet by mouth one time only for 1 dose.Disp: 1 tabletRfl: 0 GC/CHLAMYDIA AMPLIF, URINE [SQUGCCT] Order #: [id number] FUTURE PNEUMOCOCCAL IMMUNIZATION PPSV 23 [60680JHB] Order #: [id number] Prescriptions as of 01/09/2018 Sig: VENTOLIN HFA [...] 90 MCG/ACTUATION AEROSOL INHALER >> Spring Baeza PREMIUM SERVICE REPRESENTATIVE 01/09/2018 2:39 PM >> BAEZA, SPRING PREMIUM SERVICE REPRESENTATIVE FriJan 09, 2018 2:39 PM needs refill BLOOD SUGAR DIAGNOSTIC STRIPS >> Spring Baeza PREMIUM SERVICE REPRESENTATIVE 01/09/2018 2:37 PM >> BAEZA, SPRING PREMIUM SERVICE REPRESENTATIVE FriJan 09, 2018 2:37 PM prn BLOOD-GLUCOSE METER >> Sayre Baeza PREMIUM SERVICE REPRESENTATIVE 01/09/2018 2:37 PM >> BAEZA, SPRING PREMIUM SERVICE REPRESENTATIVE FriJan 09, 2018 2:37 PM prn HYDROCORTISONE 2.5 % TOPICAL CREAM >> Sayre Baeza PREMIUM SERVICE REPRESENTATIVE 01/09/2018 2:38 PM >> BAEZA, SPRING PREMIUM SERVICE REPRESENTATIVE FriJan 09, 2018 2:38 PM not picked up ACETONE (URINE) TEST STRIPS >> Spring Baeza PREMIUM SERVICE REPRESENTATIVE 01/09/2018 2:37 PM >> BAEZA SPRING PREMIUM SERVICE REPRESENTATIVE FriJan 09, 2018 2:37 PM orn GLUCAGON (HUMAN RECOMBINANT) 1 MG INJECTION KIT >> Spring Baeza PREMIUM SERVICE REPRESENTATIVE 01/09/2018 2:38 PM >> BAEZA, SPRING PREMIUM SERVICE REPRESENTATIVE FriJan 09, 2018 2:38 PM prn Problem [...] AMP, UR Collected: 01/09/2018 Status: F Source: [place] 3:19 PM [facility] REPOSIT[facility] TYPE CODE TESTS RESULT OUT OF REFERENCE UNITS RANGE LAB UGCAMP GC Negative Amplification, for Neisseria Ur gonorrhoeae by amplification. LAB UCLAMP Negative Chlamydia for Chlamydia Amplif, Ur trachomatis by amplification. Result Comment: For screening asymptomatic women, a vaginal swab specimen (APTIMA vaginal swab 860269) is optimal. Urine specimens have reduced sensitivity for Chlamydia trachomatis or Neisseria gonorrh oeae infection in female patients without symptoms. This test was developed and its performance characteristics determined by [facility] [place] ([facility]). It has not been cleared or approved by the FDA. [facility] is regulated under CLIA as qualified to perform high-complexity testing. This test is used for clinical purposes. It should not be regarded as investigational or for research. Performed By: #### UGCCT #### [facility] [address] [place], [place] [address] Observed: 01/09/2018 Status: F Source: [place] URINE CULTURE 3:18 PM [facility] REPOSITORY Sp. Request/Comment: - Best Practice Alert: To ensure optimal transport conditions and accurate culture results transfer urine specimens to rosario top C and S preservative tube. Culture Result - <10,000 CFU/ml Normal urogenital trent Performed By: #### URCUL #### [facility] [address] [place], [place] [address] PROGRESS Observed: 01/09/2018 Status: COMPLETED Source: [place] 2:40 PM [facility] REPOSITORY HNO ID: [id number] Author: Martin Arellano Service: (none) Author Type: [...] 01/07/2018 Status: F Source: [place] 1:20 PM [facility] Medical Records Department [address] [place] [address] Downtime Report MR#: [id number] Acct: [id number] Name: HILDA DESIR Rep #: [id number] : 2000 17 From: Torey Trujillo MD PCP: Martin Arellano MD Status: DEP ER This patient was seen during an EMR downtime December 22, 2017 - December 29, 2017. This patient may have a combination of paper and electronic documentation or all paper documentation. All documentation is viewable within the e-chart portion of [facility] for each patient visit. ABDOMEN/PELVIS WITH Observed: 12/26/2017 Status: F Source: [place] CONTRAST 10:16 AM [facility] Imaging Services [address] [place] [address] Abdomen/Pelvis WITH Contrast MR#: [id number] Acct: [id number] Name: HILDA DESIR Rep #: [id number] : 2000 F 17 From: Maira Mckeon MD PCP: Martin Arellano MD Status: REG ER Study: Abdomen/Pelvis WITH Contrast Date of Exam: 12/25/17 Exam# [id number] Ordering Dr: Deborah Dong MD STUDY: CT [...] CC: Martin Arellano MD; Deborah Dong MD Feed Research Aide: Signed URINALYSIS, COMPLETE Collected: 12/25/2017 Status: F Source: [place] 5:15 AM [facility] REPOSITORY Order Comment: RESULT(S) PREVIOUSLY REPORTED ON [...] MUCUS, URINE Performed By: #### L400.0001 #### [facility], [address] CBC W/DIFF, AUTOMATED Collected: 12/25/2017 Status: F Source: [place] 4:43 AM [facility] REPOSITORY Order Comment: RESULT(S) PREVIOUSLY REPORTED ON [...] Lymph 1.35 Performed By: #### L100.0100 #### [facility] [address] [place], [place], [address] ACETONE SERUM Collected: 12/25/2017 Status: F Source: [place] 4:43 AM [facility] REPOSITORY Order Comment: RESULT(S) PREVIOUSLY REPORTED ON MANUAL REQUISITION DURING DOWNTIME. TYPE CODE TESTS RESULT OUT OF RANGE REFERENCE UNITS LAB L501.6900 NEG Normal ACETONE SERUM NEGATIVE Performed By: #### L501.6900 #### [facility] [address] [place], [address] BASIC METABOLIC Collected: 12/25/2017 Status: F Source: [place] PROFILE (BMP) 4:43 AM [facility] REPOSITORY Order Comment: RESULT(S) PREVIOUSLY REPORTED ON [...] Performed By: #### L500.2500, L500.3400, L501.2450 #### [facility] [address] [place], [place], [address] LIVER PROFILE Collected: 12/25/2017 Status: F Source: [place] 4:43 AM [facility] REPOSITORY Order Comment: RESULT(S) PREVIOUSLY REPORTED ON [...] Performed By: #### L500.2500, L500.3400, L501.2450 #### [facility] [address] [place], [place], [address] LIPASE Collected: 12/25/2017 Status: F Source: [place] 4:43 AM [facility] REPOSITORY Order Comment: RESULT(S) PREVIOUSLY REPORTED ON MANUAL REQUISITION DURING DOWNTIME. TYPE CODE TESTS RESULT OUT OF RANGE REFERENCE UNITS LAB L501.2450 73-393 U/L Normal LIPASE 77 Performed By: #### L500.2500, L500.3400, L501.2450 #### [facility] [address], [address] ,SERUM,HCG QUALI. Collected: Status: F Source: [place] 12/25/2017 4:43 AM [facility] REPOSITORY Order Comment: RESULT(S) PREVIOUSLY REPORTED ON MANUAL REQUISITION DURING DOWNTIME. TYPE CODE TESTS RESULT OUT OF REFERENCE UNITS RANGE LAB L700.6700 =>Qualitative mIU/mL Normal HCG Qual < 1 triggr LAB L700.7000 0-9 Nonpreg Negative Normal HCGSQUAL NEGATIVE Performed By: #### L700.6800 #### [facility] [address] [place], [place], [address] ENDOCRINOLOGY VISIT Observed: 10/15/2017 Status: F Source: [place] REPORT 12:41 PM [facility] REPOSITORY [facility] 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 mg/dL Normal UR CREAT 199.00 LAB L502.0500 NO RANGE EST. mg/L Normal 24.6 MICROALBUMIN ,UR LAB L502.0600 <30 mg/g CRE mg/g CRE Normal 12.4 MALB:CREAT Performed By: #### L502.0250 #### [facility] [address] [place], [address] HEMOGLOBIN A1C Collected: 10/15/2017 Status: F Source: [place] 12:00 PM [facility] REPOSITORY TYPE CODE TESTS RESULT OUT OF RANGE REFERENCE UNITS LAB L501.9985 4.2-6.3 % High HGB A1C 9.8 Performed By: #### L501.9985 #### [facility] [address] [place], [address] ENDOCRINOLOGY VISIT Observed: 10/06/2017 Status: F Source: [place] REPORT 8:13 AM [facility] REPOSITORY [facility] 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 Gastroenteritis This note was generated with [employer] dictation software. It may contain incorrect words, [...] your Primary Care Provider. Call [facility] ([phone]) or report to the closest Emergency Room. Call 911 if necessary. 09/14/17 0759 <Electronically signed by Riley Carvalho DO> Date Riley Carvalho DO Cosigner Signature (If Indicated): Date CC: MD Jacqui Kothari CBC W/DIFF, AUTOMATED Collected: 09/12/2017 Status: F Source: [place] 2:15 PM [facility] REPOSITORY TYPE CODE TESTS RESULT OUT OF [...] Lymph 0.95 Performed By: #### L100.0100 #### [facility] [address] [place], [place], [address] COMPREHENSIVE METABOLIC Collected: 09/12/2017 Status: F Source: [facility] 2:15 PM [facility] REPOSITORY TYPE CODE TESTS RESULT OUT OF [...] 7 Performed By: #### L500.4050, L501.2450 #### [facility] [address] [place], [address] LIPASE Collected: 09/12/2017 Status: F Source: [place] 2:15 PM [facility] REPOSITORY TYPE CODE TESTS RESULT OUT OF REFERENCE UNITS RANGE LAB L501.2450 73-393 U/L Low LIPASE 62 Performed By: #### L500.4050, L501.2450 #### [facility] [address] [place], [address] ,SERUM,HCG QUALI. Collected: Status: F Source: [place] 09/12/2017 2:15 PM [facility] REPOSITORY TYPE CODE TESTS RESULT OUT OF REFERENCE UNITS RANGE LAB L700.6700 =>Qualitative mIU/mL Normal HCG Qual < 1 triggr LAB L700.7000 0-9 Nonpreg Negative Normal HCGSQUAL NEGATIVE Performed By: #### L700.6800 #### [facility] [address] [place], [address] BEDSIDE GLUCOSE Collected: 09/12/2017 Status: F Source: [place] 1:32 PM [facility] REPOSITORY TYPE CODE TESTS RESULT OUT OF REFERENCE UNITS RANGE LAB L501.080 70-110 mg/dL High BEDSIDE GLU 237 Result Comment: MANAGEMENT OF PATIENT CARE PER NURSING PROTOCOL Performed By: #### L501.080 #### [facility] Point of Care [address] [place] [address] ALLERGIES ALLERGIES DATE TYPE / CODE NAME / CODE REACTION SEVERITY SOURCE 08/08/2018 Drug Penicillins/F001 Unknown Unknown [facility]/998123491( 513838(RXNORM) [facility] Repository 08/08/2018 Drug Sulfa Unknown Unknown [facility]/150892436( (Sulfonamide [facility]) Antibiotics)/F00 Hospital 2002106(RXNORM) Repository 08/08/2018 Drug Egg Other Unknown [facility]/997050372( Derived/[id number] [facility] SNOMED CT) 08(RXNORM) Hospital Repository 08/08/2018 Drug prednisone/F0060 Vomiting Unknown [facility]/306591267( 80384(RXNORM) [facility] SNOMED [facility]) Hospital Repository 08/08/2018 Drug milk/[id number]( Diarrhea Unknown [facility]/542547555( RXNORM) [facility] SNOMED [facility]) Hospital Repository 08/08/2018 Miscellaneous bee stings Unknown [facility] Allergy/576314516( [facility] SNOMED [facility]) Hospital Repository 04/01/2018 Drug ibuprofen/Y40162 Vomiting Unknown [facility]ergy/975580164( 2377(RXNORM) [facility] SNOMED CT) Hospital Repository 04/01/2018 Drug insulin Unknown [facility] Allergy/032444157( glargine/F042330 [facility] SNOMED CT) 131(RXNORM) Hospital Repository 08/10/2012 DRUG CORN GI UPSET [facility] INGREDI/981457599( [facility] SNOMED [facility]) [place] Repository 08/10/2012 DRUG EGG OTHER: SEE C Mariee INGREDI/263775385( [facility] SNOMED CT) [place] Repository 12/31/2011 DRUG LACTASE GI UPSET [facility] INGREDI/304997521( [facility] SNOMED CT) [place] Repository 12/31/2011 Drug PENICILLINS RASH [facility] Class/708655443(SN [facility] OMED CT) [place] Repository 12/31/2011 DRUG/776410453(SNO SULFATRIM DS Vomiting Mariee MED CT) Clinic Main [place] Repository ENCOUNTERS ENCOUNTERS ADMIT/DISCHARGE ACCOUNT ADMITTING ENCOUNTER LOCATION SOURCE NUMBER CLASS 08/08/2018/08/08/19 [id number] Emergency [address] ing:ED Repository 07/02/2018 [id number] [place] Ambulatory BMSBuilding:Walt Longo MS.[facility] Repository 07/02/2018/07/04/20 [id number] [place] Inpatient [facility] 18 Encounter [facility] ing:TN9Kfom: Repository [id number]: 1 07/02/2018 [id number] [place] Ambulatory BMSBuilding:Walt Longo MS.[facility]ly [facility] Repository 07/02/2018 [id number] [place] Ambulatory BMSBuilding:Walt Longo MS.[facility] Repository 06/29/2018/06/29/20 [id number] Emergency [address] ing:ED Repository 04/01/2018/04/01/20 [id number] Emergency [address] ing:ED Repository 01/09/2018/01/13/20 [id number] Ambulatory [address] Repository 01/09/2018/01/10/20 [id number] Ambulatory [address] Repository 12/25/2017/12/26/19 [id number] Emergency [address] ing:ED Repository 11/12/2017 [id number] Ambulatory BMSBuilding:Walt Longo MS.[facility] Repository 10/15/2017 [id number] Ambulatory [facility] ing:LAB Repository 10/15/2017/10/16/19 [id number] Ambulatory BMSBuilding:B [place] 18 [facility] Repository 10/01/2017/10/02/19 [id number] Ambulatory BMSBuilding:Walt Longo 18 .[facility] Repository 09/12/2017/09/12/19 [id number] Emergency [address] ing:ED Repository PAYERS PAYERS ENCOUNTER GUARANTOR PAYER SUBSCRIBER SOURCE 08/08/2018 HILDA Hansen Primary HILDA M D[place] [id number] Insurance:CARESOURCEP KELLEYDOB: [facility] DALEY Number: [id number] Juan [facility] Medical [facility] [address]Bcg: [id number] Repository Date:2018-08-08P O (HP) [address]ATTN: [place] [address]GA: 08/08/2018 Secondary NOT GIVENUNK [place] Insurance:SELF PAY [facility] Number: Effective Repository Date:2018-08-08 07/02/2018 HILDA Hansen Primary HILDA Longo [id number] Insurance:CARESOURCEP [facility] Number: [id number] Juan Regional Medical Center [address]Cgc: [id number] Repository Date:2018-07-02P O (HP) [address]ATTN: [place] [address]QL: 07/02/2018 Secondary NOT GIVENUNK [place] Insurance:SELF PAY [facility] Number: Effective Repository Date:2018-07-02 07/02/2018 HILDA Hansen Primary HILDA Longo [id number] Insurance:CARESOURCEP KELLEYDOB: [facility] DALEY Number: [id number] Juan Regional Medical Center [address]Goc: [id number] Repository Date:2018-07-02P O (HP) [address]ATTN: [place] [address]FN: 07/02/2018 Secondary NOT GIVENUNK [place] Insurance:SELF PAY [facility] Number: Effective Repository Date:2018-07-02 07/02/2018 HILDA Hansen Primary HILDA [address] Insurance:CARESOURCEP KELLEYDOB: [facility] Number: [id number] Juan Regional Medical Center [address]Ysn: [id number] Repository Date:2018-07-02P O (HP) [address]ATTN: [place] [address]HB: 07/02/2018 Secondary NOT GIVENUNK [place] Insurance:SELF PAY [facility] Number: Effective Repository Date:2018-07-02 07/02/2018 HILDA Hansen Primary HILDA Longo [id number] Insurance:CARESOURCEP KELLEYDOB: [facility] Number: [id number] Juan Regional Medical Center [address]Mdv: [id number] Repository Date:2018-07-02P O (HP) [address]ATTN: [place] [address]VY: 07/02/2018 Secondary NOT GIVENUNK [place] Insurance:SELF PAY [facility] Number: Effective Repository Date:2018-07-02 06/29/2018 HILDA Hansen Primary HILDA [address] Insurance:CARESOURCEP KELLEYDOB: [facility]davy Number: [id number] Juan Regional Medical Center [address]Hgq: [id number] Repository Date:2018-06-29P O () [address]ATTN: [place] [address]RC: 06/29/2018 Secondary NOT GIVENUNK [place] Insurance:SELF PAY [facility] Number: Effective Repository Date:2018-06-29 04/01/2018 HILDA Hansen Primary HILDA [address] Insurance:CARESOURCEP KELLEYDOB: [facility]JOT[facility] CENTERdayv Number: [id number] Juan Regional Medical Center [address]Wsq: [id number] Repository Date:2018-04-01 O (HP) [address]ATTN: [place] [address]UE: 04/01/2018 Secondary NOT GIVENUNK [place] Insurance:SELF PAY [facility] Number: Effective Repository Date:2018-04-01 12/25/2017 HILDA Hansen Primary HILDA M [place] [id number] Insurance:CARESOURCEP KELLEYDOB: [facility]ENTERdavy Number: [id number] Juan Regional Medical Center [address]Lhi: [id number] Repository Date:2017-12-25P O (HP) [address]ATTN: [place] [address]GJ: 12/25/2017 Secondary NOT GIVENUNK [place] Insurance:SELF PAY [facility] Number: Effective Repository Date:2017-12-25 11/12/2017 HILDA Hansen Primary HILDA Longo [id number] Insurance:CARESOURCEP KELLEYDOB: [facility] Number: [id number] Juan Regional Medical Center [address]Agk: [id number] Repository Date:2017-10-15P O (HP) [address]ATTN: [place] [address]PW: 11/12/2017 Secondary NOT GIVENUNK [place] Insurance:SELF PAY [facility] Number: Effective Repository Date:2017-10-15 10/15/2017 HILDA Hansen Primary HILDA Longo [id number] Insurance:CARESOURCEP KELLEYDOB: [facility]a Number: [id number] Juan Regional Medical Center [address]Pmd: [id number] Repository Date:2017-10-15P O (HP) [address]ATTN: [place] [address]KE: 10/15/2017 Secondary NOT GIVENUNK [place] Insurance:SELF PAY [facility] Number: Effective Repository Date:2017-10-15 10/15/2017 HILDA Hansen Primary HILDA [address] Insurance:CARESOURCEP KELLEYDOB: [facility] Number: [id number] Juan Regional Medical Center [address]Wbc: [id number] Repository Date:2017-10-01P O (HP) [address]ATTN: [place] [address]CJ: 10/15/2017 Secondary NOT GIVENUNK [place] Insurance:SELF PAY [facility] Number: Effective Repository Date:2017-10-15 10/01/2017 HILDA Hansen Primary HILDA [address] Insurance:CARESOURCEP THANGDOB: Community davy HILARIO Number: [id number] Juan Regional Medical Center [address]Qyl: [id number] Repository Date:2017-09-16P O (HP) [address]ATTN: [place] [address]QG: 10/01/2017 Secondary NOT GIVENUNK [place] Insurance:SELF PAY [facility] Number: Effective Repository Date:2017-09-16 09/12/2017 HILDA Hansen Primary HILDA [address] Insurance:CARESOURCEP THANGDOB: [facility] davy Hilario Number: [id number] Juan Regional Medical Center [address]Dcq: [id number] Repository Date:2017-09-12P O () [address]ATTN: [place] [address]ZP: 09/12/2017 Secondary NOT GIVENUNK [place] Insurance:SELF PAY [facility] Number: Effective Repository Date:2017-09-12
== END 2018-08-08 02:02 | disposition home or self-care (01) ==
LOC: ED 00:58
PROVIDERS: Emergency Provider Emergency Medicine; Family Provider Pediatrics; PCP Pediatrics
DX: S20.219A Contusion of unspecified front wall of thorax, initial encounter (principal); V49.88XA Car occupant (driver) (passenger) injured in other specified transport accidents, initial encounter; Y93.89 Activity, other specified; Y92.410 Unspecified street and highway as the place of occurrence of the external cause; E10.9 Type 1 diabetes mellitus without complications; Z79.4 Long term (current) use of insulin; Z72.0 Tobacco use
CPT/HCPCS: 71046; 99284

== ENCOUNTER 2018-08-25 12:45 | Inpatient (IN) | payer MEDICAID, SELFPAY ==
[2018-08-20 11:04] VITALS: BMI 27.4
[2018-08-25] VITALS (17 sets, daily range): BP systolic 96–138; BP diastolic 36–93; PULSE 103–140; RESP 16–23; TEMP 36.6–36.7; O2SAT 98–100; BMI 23.2; BMI 24.3
--- NOTE | 2018-08-25 12:57 | EKG12_ITS ---
Test Reason : NAUSEA Blood Pressure : / mmHG Vent. Rate : 124 BPM Atrial Rate : 124 BPM P-R Int : 114 ms QRS Dur : 084 ms QT Int : 348 ms P-R-T Axes : 072 081 050 degrees QTc Int : 499 ms Sinus tachycardia Otherwise normal ECG Confirmed by GREGORIA AGOSTO, RACHNA ([id number]), advertising editor ROSHAN TRUJILLO ([id number]) on 08/31/2018 10:05:48 AM Referred By: NISHA Confirmed By:RACHNA KINNEY MD
[2018-08-25] MEDS: 0.9% Normal Saline 1,000 ML 1000 ML IV ×2 (13:25)
[2018-08-25] MEDS: Ondansetron 4 MG/2 ML Vial IV (13:25)
--- NOTE | 2018-08-25 13:42 | ED.VISSUMM ---
- ER Visit Summary Date of Service: 08/25/18 Chief Complaint: Nausea and History of Present Illness: The patient is a 18 F who is an insulin-dependent diabetic presents to the emergency department nausea and vomiting. The patient states that last night, she began have some abdominal cramping and pain into her back. She states that she had multiple episodes of nausea and vomiting. She states that her blood sugars been running in the 300s which she says is normal for her. She does have a history of recurrent DKA and states this feels the same. She denies any fevers or chills. She denies any dysuria. She said no chest pain or shortness of breath. She has not run out of her insulin. Physical Examination: Vital signs reviewed General: Well-nourished, well-developed Head: Normocephalic, atraumatic Eyes: Pupils equal and reactive, extraocular muscles intact Neck, supple, no lymphadenopathy Heart: Regular rate and rhythm Respiratory: No distress, clear bilaterally Abdomen: Soft, nontender, nondistended, no peritoneal signs Back: Nontender Extremities: Nontender, no edema, no cords Skin: Normal color no rash Neuro: Alert and oriented, no focal or lateralizing deficits Test Results: [] Emergency Department Course and Treatment: The patient presents with nausea and vomiting. This feels similar to her prior episodes of DKA. IV was established. The patient was given IV fluids and antiemetics. Screening labs do demonstrate anion gap acidosis and serum ketones. The patient was aggressively hydrated. She was started on insulin drip and will be admitted. Patient was discussed with Dr. Garza and Dr. Weems/ Treatment Plan: [] Disposition: Admission Impression: 1. DKA This note was generated with Lapioation software. It may contain incorrect words, spelling, and punctuation that were not noted in review of the chart prior to signing ED Disposition - Plan for ED Patient: Referrals: Martin Baldwin MD [Primary Care Provider] -
[2018-08-25 13:45] LABS: Absolute Lymphocyte Count 1.22 X10^3/ul (0.83-4.51); Absolute Neutrophil Count 16.1 X10^3/uL (2.0-7.7); Basophil# 0.03 X10^3/uL; Basophil% 0.2 % (0-1); Hematocrit 50.6 % (37-47); Lymphocyte # 1.22 X10^3/ul (4.0); Lymphocyte % 6.9 % (19-41); Mean Corp Hgb Conc 33.6 g/gl (32-36); Mean Corpuscular Volume 83.2 fL (81-99); Mean Platelet Vol. 9.2 fl (6.2-12.0); Monocyte# 0.36 X10^3/uL; Neutrophil # 16.09 X10^3/uL (2.7-7.7); Neutrophil % 90.5 % (47-70); Platelet Count 476 K/mm3 (150-450); RBC Distribution Width SD 42.4 fl (35.1-43.9); Red Blood Count 6.08 M/mm3 (4.2-5.4); White Blood Count 17.8 K/mm3 (4.4-11.0)
[2018-08-25 13:46] LABS: POSITIVE COUNT NO; POSITIVE DIFFERENTIAL NO; POSITIVE MORPHOLOGY NO
[2018-08-25 14:03] LABS: ALB/GLOB Ratio 1.1 RATIO (0.9-2.4); AST(SGOT) 13 U/L (15-37); Alanine Aminotransfer ALT/SGPT 24 U/L (13-56); Albumin, Serum 4.9 g/dL (3.2-5.0); Alkaline Phosphatase 125 U/L (45-117); Anion Gap 21 (5-15); BUN 16 mg/dL (7-18); BUN/Creat Ratio 15.4 RATIO (10-20); Calcium,Total 9.2 mg/dL (8.5-10.1); Chloride 105 mmol/L (98-107); Creatinine, Serum 1.04 mg/dL (0.55-1.02); EST Glomerular Filtration Rate 72 mL/min (>60); Est Glom Filt Rate - Afr Amer 87 mL/min (>60); Estimated Creatinine Clearance 71.06 ml/min; Globulin 4.6 g/dL (2.2-4.2); Glucose 318 mg/dL (74-106); Lipase 81 U/L (73-393); Potassium 4.2 mmol/L (3.5-5.1); Protein, Total 9.5 g/dL (6.4-8.2); Sodium Level 134 mmol/L (136-145)
--- NOTE | 2018-08-25 14:16 | ED.RN ---
LAB CALLS WITH CRITICAL RESULT, CO2 IS 8, DR. DESIR MADE AWARE.
[2018-08-25 14:26] LABS: Bedside Glucose 243 mg/dL (70-110)
[2018-08-25 14:32] LABS: Pregnancy, Serum, hCG Quali. NEGATIVE Negative (0-9 Nonpreg)
[2018-08-25 14:54] LABS: Mucous, Urine 0 SEEN /hpf (<or=2+)
[2018-08-25 14:57] LABS: Color, Urine Yellow (Yellow); Glucose, Dipstick 1000 mg/dl (Normal); Leukocyte Esterase-Dipstick Negative /ul (Negative); Nitrite-Dipstick Negative (Negative); Occult Blood-Urine 25 /ul (Negative); Protein-Dipstick 100 mg/dl (Negative); Specific Gravity, Urine 1.025 (1.002-1.030); Urine Bilirubin Dipstick Negative (Negative); Urine Clarity Sl. Cloudy (Clear); Urine Urobilinogen Normal (Normal)
[2018-08-25 14:58] LABS: Ketone-Dipstick 150 mg/dl (Negative)
[2018-08-25 15:00] LABS: Bacteria RARE /hpf (None Seen); Red Blood Cells-Urine 0-5 SEEN /hpf (0-5); Squamous Epithelial Cells - UA 5-10 SEEN /hpf (5-10); White Blood Cells 0-5 SEEN /hpf (0-5)
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
--- NOTE | 2018-08-25 15:13 | NURSING ---
[facility] 201 DKA PAINTSIL
[2018-08-25] MEDS: Dextrose 5%-Lactated Ringers 1,000 ML 200 ML IV (15:18)
[2018-08-25 16:12] LABS: Bedside Glucose 201 mg/dL (70-110)
[2018-08-25] MEDS: 0.9% Normal Saline 1,000 ML 999 ML IV ×2 (16:22→17:30)
[2018-08-25] MEDS: Dext 5%-0.45% NS 1,000 ML 150 ML IV ×2 (16:29→23:13)
[2018-08-25 17:06] LABS: Bedside Glucose 173 mg/dL (70-110)
[2018-08-25 17:56] LABS: Bedside Glucose 166 mg/dL (70-110)
[2018-08-25 17:58] LABS: Anion Gap 13 (5-15); BUN 11 mg/dL (7-18); Calcium,Total 7.7 mg/dL (8.5-10.1); Chloride 113 mmol/L (98-107); Creatinine, Serum 0.73 mg/dL (0.55-1.02); EST Glomerular Filtration Rate 107 mL/min (>60); Est Glom Filt Rate - Afr Amer 130 mL/min (>60); Estimated Creatinine Clearance 105.76 ml/min; Glucose 193 mg/dL (74-106); Potassium 3.9 mmol/L (3.5-5.1); Sodium Level 138 mmol/L (136-145)
[2018-08-25] MEDS: Potassium Chloride 10mEq/100mL 10 MEQ/100 ML IV.SOLN. 100 MEQ IV BOLUS ×4 (18:31→23:50)
[2018-08-25 19:07] LABS: Bedside Glucose 189 mg/dL (70-110)
[2018-08-25 20:07] LABS: Bedside Glucose 186 mg/dL (70-110)
[2018-08-25 21:07] LABS: Bedside Glucose 185 mg/dL (70-110)
[2018-08-25 21:49] LABS: Anion Gap 9 (5-15); BUN 7 mg/dL (7-18); BUN/Creat Ratio 11.8 RATIO (10-20); Calcium,Total 7.2 mg/dL (8.5-10.1); Chloride 116 mmol/L (98-107); Creatinine, Serum 0.59 mg/dL (0.55-1.02); EST Glomerular Filtration Rate 137 mL/min (>60); Est Glom Filt Rate - Afr Amer 165 mL/min (>60); Estimated Creatinine Clearance 130.86 ml/min; Glucose 217 mg/dL (74-106); Potassium 2.9 mmol/L (3.5-5.1); Sodium Level 140 mmol/L (136-145)
[2018-08-25 22:11] LABS: Bedside Glucose 209 mg/dL (70-110)
[2018-08-25 23:11] LABS: Bedside Glucose 173 mg/dL (70-110)
[2018-08-26] VITALS (25 sets, daily range): BP systolic 93–134; BP diastolic 44–82; PULSE 85–110; RESP 11–24; TEMP 36.7–36.9; O2SAT 97–105
[2018-08-26 00:12] LABS: Bedside Glucose 138 mg/dL (70-110)
[2018-08-26 04:39] LABS: Anion Gap 10 (5-15); BUN 5 mg/dL (7-18); BUN/Creat Ratio 9.5 RATIO (10-20); Calcium,Total 7.9 mg/dL (8.5-10.1); Chloride 114 mmol/L (98-107); Creatinine, Serum 0.52 mg/dL (0.55-1.02); EST Glomerular Filtration Rate 157 mL/min (>60); Est Glom Filt Rate - Afr Amer 191 mL/min (>60); Estimated Creatinine Clearance 148.48 ml/min; Glucose 128 mg/dL (74-106); Magnesium 1.8 mg/dL (1.6-2.6); Phosphorus 1.9 mg/dL (2.5-4.9); Potassium 3.2 mmol/L (3.5-5.1); Sodium Level 142 mmol/L (136-145)
[2018-08-26 04:43] LABS: Absolute Lymphocyte Count 2.03 X10^3/ul (0.83-4.51); Absolute Neutrophil Count 7.1 X10^3/uL (2.0-7.7); Basophil# 0.02 X10^3/uL; Basophil% 0.2 % (0-1); Eosinophil# 0.03 X10^3/uL; Eosinophils% 0.3 % (0-5); Hematocrit 36.1 % (37-47); Hemoglobin 12.2 g/dl (12.0-15.0); Lymphocyte # 2.03 X10^3/ul (4.0); Lymphocyte % 20.6 % (19-41); Mean Corp Hgb Conc 33.8 g/gl (32-36); Mean Corpuscular Hgb 27.9 pg (27.0-32.0); Mean Corpuscular Volume 82.4 fL (81-99); Mean Platelet Vol. 8.7 fl (6.2-12.0); Monocyte# 0.63 X10^3/uL; Monocyte% 6.4 % (0-10); Neutrophil # 7.11 X10^3/uL (2.7-7.7); Neutrophil % 72.3 % (47-70); POSITIVE COUNT NO; POSITIVE DIFFERENTIAL NO; POSITIVE MORPHOLOGY NO; Platelet Count 275 K/mm3 (150-450); RBC Distribution Width CV 13.8 % (11.6-14.6); RBC Distribution Width SD 40.8 fl (35.1-43.9); Red Blood Count 4.38 M/mm3 (4.2-5.4); White Blood Count 9.8 K/mm3 (4.4-11.0)
[2018-08-26 08:21] LABS: Bedside Glucose 68 mg/dL (70-110)
[2018-08-26] MEDS: Loratadine 10 MG Tablet PO (08:39)
[2018-08-26 10:11] LABS: Bedside Glucose 260 mg/dL (70-110)
--- NOTE | 2018-08-26 10:42 | CASEMGMT ---
SW spoke w/pt in room in regard to prior level of functioning and discharge needs. PCP: Dr. Baldwin Specialists: RAULITO Sterling, pt states she has been to see RAULITO Sterling recently [facility]erred [facility] Insurance/Prescription benefit: [employer] Current Medication Needs: Pt states has all needed medication and supplies for her diabetes at this time, including a meter. Living Will/POA: Declined at this time to complete as per admitting RN GINGER: Pt is currently living w/her grandparents, brother, and fiance. She states her mother is no longer staying there. Transportation: Pt states that they just lost their car. She states her grandpa will drive her if needed. DME/HHC: No needs anticipated with DME or HHC Employment: Pt was working at [employer]. Pt states she has probably been fired due to missing work. SW offered to give pt a note stating she was in the hospital, pt states her work does not take doctor notes. Mental Health history: Pt denies any mental health history. Pt states has done counseling in the past but it makes her more stressed. SW asked pt the circumstances of her counseling. Pt states was when she was 16-17, through the courts. Pt vague on details in regard to this however. Additional information: SW asked pt about the circumstances of her being here in the hospital. Pt states that she got food poisoning from steak from [employer]; she thinks this is what caused the the DKA. Though pt lives with her grandparents, she states they do not share food. Pt states she has been utilizing [employer]. Her brother and fiance are not working, and she has a job but thinks she has been fired. Nobody has food stamps. Though her grandpa has a car, pt states he does not believe in [employer] and will not take pt there. SW gave pt information on food pantries in the area, [employer], and 211 to call for additional assist. SW also encouraged pt to call [employer] and apply for food assistance, gave pt the phone numbers for [employer]. At this point, pt is declining any additional assist from [facility]. SW remains available however should any additional needs arise. DEV Long, CLINICAL PRODUCT SPECIALIST
[2018-08-26] MEDS: Insulin Lispro 100 UNIT/ML INSULN.PEN SC ×4 (11:32→21:54)
[2018-08-26 12:14] LABS: Potassium 3.6 mmol/L (3.5-5.1)
[2018-08-26 13:16] LABS: Bedside Glucose 314 mg/dL (70-110)
[2018-08-26 13:26] LABS: Anion Gap 9 (5-15); BUN 3 mg/dL (7-18); BUN/Creat Ratio 5.6 RATIO (10-20); Calcium,Total 8.1 mg/dL (8.5-10.1); Chloride 110 mmol/L (98-107); Creatinine, Serum 0.53 mg/dL (0.55-1.02); EST Glomerular Filtration Rate 155 mL/min (>60); Est Glom Filt Rate - Afr Amer 188 mL/min (>60); Estimated Creatinine Clearance 145.68 ml/min; Glucose 323 mg/dL (74-106); Potassium 3.6 mmol/L (3.5-5.1); Sodium Level 138 mmol/L (136-145)
--- NOTE | 2018-08-26 14:08 | DCINST_ITS ---
- Discharge Diagnoses Current Active Problems: Current Active and Chronic Problems (Last Updated 08/20/18 @ 11:18 by Adriana Mulligan) Asthma (Acute) Leucocytosis (Acute) FRANKLIN (acute kidney injury) (Acute) You will use the following diet at home:: Calorie/Carbohydrate Controlled (specify 1200, 1400, etc) - 1800 DONI. Your food should be the consistency of: Regular Discharge Activity: Return to Normal Activity Weight Bearing Status: Full weight bearing Call your doctor if you observe: Fever of 101 or Higher, Shortness of breath, Dizziness, Fainting spells, Chest pain, Increased palpitations (irregular heartbeat), Uncontrolled pain Allergies/Adverse Reactions: Allergies Egg Derived Allergy (Verified 08/25/18 12:48) Other Penicillins Allergy (Verified 08/25/18 12:48) Unknown Sulfa (Sulfonamide Antibiotics) Allergy (Verified 08/25/18 12:48) Unknown milk Adverse Reaction (Verified 08/25/18 12:48) Diarrhea prednisone Adverse Reaction (Verified 08/25/18 12:48) Vomiting bee stings Allergy (Severe, Uncoded 08/25/18 12:48) Unknown Medications to take at Discharge Albuterol Sulfate [Ventolin Hfa] 2 puff INHALATION Q4H PRN PRN 08/25/18 Cetirizine HCl 10 mg PO DAILY 08/25/18 Insulin Aspart [Novolog Flexpen] See Rx Instructions SC TIDCM 08/25/18 Insulin Glargine,Hum.rec.anlog [Basaglar Kwikpen U-100] 40 unit SC BID 08/25/18 Primary Care Physician: Martin Baldwin MD [Primary Care Provider] - Please follow up with your Primary Care Physician in: 2 WEEKS. Test Results: Test results from this visit will be discussed in further detail at your follow- up appointment, if applicable. Please Follow Up With: Radha Sterling NP-C When: 1 WEEK.
--- NOTE | 2018-08-26 14:37 | ECHOD_ITS ---
Reason For Study: ARRHYTHMIA Procedure This was a 2D Doppler, Color Flow transthoracic echocardiogram. Exam performed portable in ICU/CCU. Left Ventricle Normal size and thickness. The estimated ejection fraction is 50-55 %. No regional wall motion abnormalities noted. Right Ventricle Normal size and thickness. Normal systolic function. Atria Normal left atrium. Normal right atrium. Normal atrial septum. Mitral Valve The mitral valve is structurally normal. No prolapse or stenosis seen. Tricuspid Valve Normal tricuspid valve. Trivial tricuspid valve insufficiency. Right ventricular systolic pressure estimated to be 19 mmHg. Aortic Valve Normal aortic valve. Trisinus/trileaflet aortic valve. Pulmonic Valve Normal pulmonic valve. Great Vessels Normal aortic root. Normal arch. Normal inferior vena cava. Inferior vena cava collapse with sniff. Pericardium/Pleural No pericardial effusion. MMode/2D Measurements & Calculations LVIDd: 4.1 cm IVSd: 0.82 cm Ao root diam: 2.3 cm LVIDs: 3.0 cm LVPWd: 0.74 cm RVDd: 2.6 cm FS: 26.8 % LAV(MOD-bp): 26.5 ml LVAd ap4: 24.9 cm2 SV(MOD-sp4): 33.4 ml LAV(MOD-bp) Indexed: 17.9 ml/m2 EDV(MOD-sp4): 67.2 ml LAV(MOD-sp2): 28.9 ml EDV(sp4-el): 69.9 ml LAV(MOD-sp4): 24.2 ml LVAs ap4: 16.1 cm2 ESV(MOD-sp4): 33.7 ml ESV(sp4-el): 34.6 ml EF(MOD-sp4): 49.8 % EF(sp4-el): 50.4 % SV(sp4-el): 35.3 ml LA A4 area: 11.0 cm2 LA dimension(2D): 2.6 cm RA A4 area: 7.6 cm2 Time Measurements MV dec time: 0.20 sec Doppler Measurements & Calculations MV E max jono: 98.2 cm/sec Lat Peak E' Jono: 14.8 cm/sec Med Peak E' Jono: 12.1 cm/sec MV A max jono: 45.0 cm/sec E/E' lat: 6.6 E/E' med: 8.1 MV E/A: 2.2 Ao V2 max: 147.8 cm/sec LV V1 max: 124.4 cm/sec TR max jono: 177.1 cm/sec Ao max P.7 mmHg LV V1 max P.2 mmHg TR max P.6 mmHg Interpretation Summary The estimated ejection fraction is 50-55 %. Trivial tricuspid valve insufficiency. Right ventricular systolic pressure estimated to be 19 mmHg. The study was technically difficult. Ordering Physician: Ranjith Cook Referring Physician: ALISHA ARELLANO Performed By: Judy Roldan, JAVID, RVT
--- NOTE | 2018-08-26 14:40 | PN_ITS ---
Patient Problems: Active and Suspected Problems (Last Updated 08/20/18 @ 11:18 by Adriana Mulligan) Leucocytosis (Acute) Subjective: Chief complaint: Follow-up after admission for DKA. Patient seen and examined. No acute events overnight. IV insulin drip discontinued early this morning. Patient is eating or drinking, started back on her home regimen of insulin. She denied any more nausea vomiting. She is feeling better. Her vital signs are stable. Later today, patient had a run of nonsustained V. tach for about 10 beats, she was asymptomatic and her vitals are stable. Actually patient was sleepy. - Physical Exam General: Alert, Oriented x3, Cooperative, No apparent distress HEENT: Atraumatic, PERRLA, EOMI, Normocephalic Oral: Moist Mucosa, No Gingival or Mucosal Lesions/ Ulcerations Neck: Supple, No JVD, Negative Carotid Bruits, Trachea Midline, Thyroid Normal Size and Texture Lungs: Clear to auscultation, Normal air movement, No rhonchi, No wheeze, No rales Cardiovascular: Regular rate, Regular Rhythm, Normal S1, Normal S2, PMI Normal Abdomen: Bowel Sounds Present, Soft, Non Tender, Non-Distended, No Hepato-splenomegaly Extremities: No clubbing, No cyanosis, No edema Skin: No rashes, No breakdown Lymphatic: No Cervical, Supraclavicular, or Inguinal Adenopathy Neurological: Cranial nerves II-XII grossly intact, Motor Exam 5/5 strength throughout Psych/Mental Status: Normal Affect, Appropriate, Alert and oriented to time, place, person, mood and affect Vital Signs Temp Pulse Resp BP Pulse Ox 98.1 F 106 H 16 122/76 H 105 08/26/18 12:00 08/26/18 13:00 08/26/18 13:00 08/26/18 13:00 08/26/18 13:00 Oxygen Delivery Method Room Air Weight: 120 lb 2.431 oz Body Mass Index (BMI) 24.3 Finger Stick Blood Glucose 138 Intake and Output for Last 24 Hours 08/24/18 08/25/18 08/26/18 23:59 23:59 23:59 Intake Total 1752 / 1752 3374.8 / 3374.8 Output Total 500 / 500 1700 / 1700 Balance 1252 / 1252 1674.8 / 1674.8 Laboratory Tests Past 24 Hrs 08/25/18 08/25/18 08/25/18 14:45 17:00 21:02 WBC RBC Hgb Hct MCV MCH MCHC RDW RDW Differential Plt Count MPV Immature Gran % (Auto) Neut % (Auto) Lymph % (Auto) [place] % (Auto) Eos % (Auto) Baso % (Auto) Absolute Neuts (auto) Absolute Lymphs (auto) Total Counted Sodium 138 140 Potassium 3.9 2.9 L Chloride 113 H 116 H Carbon Dioxide 12.0 L 15.0 L Anion Gap 13 9 BUN 11 7 Creatinine 0.73 0.59 Estim Creat Clear Calc 105.76 130.86 Est GFR (MDRD) Af Amer 130 165 Est GFR (MDRD) Non-Af 107 137 BUN/Creatinine Ratio 15.0 11.8 Glucose 193 H 217 H Calcium 7.7 L 7.2 L Phosphorus Magnesium Urine Color Yellow Urine Clarity Sl. Cloudy Urine pH 5.0 Ur Specific [place] 1.025 Urine Protein 100 H Urine Glucose (UA) 1000 H Urine Ketones 150 H Urine Occult Blood 25 H Urine Nitrite Negative Urine Bilirubin Negative Urine Urobilinogen Normal Ur Leukocyte Esterase Negative Urine RBC 0-5 SEEN Urine WBC 0-5 SEEN Ur Squamous Epith Cells 5-10 SEEN Urine Bacteria RARE Urine Mucus 0 SEEN 08/26/18 08/26/18 08/26/18 04:10 04:10 11:35 WBC 9.8 RBC 4.38 Hgb 12.2 Hct 36.1 L MCV 82.4 MCH 27.9 MCHC 33.8 RDW 13.8 RDW Differential 40.8 Plt Count 275 MPV 8.7 Immature Gran % (Auto) 0.200 Neut % (Auto) 72.3 H Lymph % (Auto) 20.6 [place] % (Auto) 6.4 Eos % (Auto) 0.3 Baso % (Auto) 0.2 Absolute Neuts (auto) 7.1 Absolute Lymphs (auto) 2.03 Total Counted Not Reportable Sodium 142 Potassium 3.2 L 3.6 Chloride 114 H Carbon Dioxide 18.0 L Anion Gap 10 BUN 5 L Creatinine 0.52 L Estim Creat Clear Calc 148.48 Est GFR (MDRD) Af Amer 191 Est GFR (MDRD) Non-Af 157 BUN/Creatinine Ratio 9.5 L Glucose 128 H Calcium 7.9 L Phosphorus 1.9 L Magnesium 1.8 Urine Color Urine Clarity Urine pH Ur Specific [place] Urine Protein Urine Glucose (UA) Urine Ketones Urine Occult Blood Urine Nitrite Urine Bilirubin Urine Urobilinogen Ur Leukocyte Esterase Urine RBC Urine WBC Ur Squamous Epith Cells Urine Bacteria Urine Mucus 08/26/18 08/26/18 11:35 11:35 WBC RBC Hgb Hct MCV MCH MCHC RDW RDW Differential Plt Count MPV Immature Gran % (Auto) Neut % (Auto) Lymph % (Auto) [place] % (Auto) Eos % (Auto) Baso % (Auto) Absolute Neuts (auto) Absolute Lymphs (auto) Total Counted Sodium 138 Potassium 3.6 Chloride 110 H Carbon Dioxide 19.0 L Anion Gap 9 BUN 3 L Creatinine 0.53 L Estim Creat Clear Calc 145.68 Est GFR (MDRD) Af Amer 188 Est GFR (MDRD) Non-Af 155 BUN/Creatinine Ratio 5.6 L Glucose 323 H Calcium 8.1 L Phosphorus Magnesium Pending Urine Color Urine Clarity Urine pH Ur Specific [place] Urine Protein Urine Glucose (UA) Urine Ketones Urine Occult Blood Urine Nitrite Urine Bilirubin Urine Urobilinogen Ur Leukocyte Esterase Urine RBC Urine WBC Ur Squamous Epith Cells Urine Bacteria Urine Mucus POC Glucose 08/26/18 08/26/18 08/26/18 11:30 10:07 08:12 POC Glucose 314 H 260 H 68 L 08/25/18 08/25/18 08/25/18 23:57 23:05 22:01 POC Glucose 138 H 173 H 209 H 08/25/18 08/25/18 08/25/18 21:01 20:01 18:59 POC Glucose 185 H 186 H 189 H 08/25/18 08/25/18 08/25/18 17:51 16:57 15:52 POC Glucose 166 H 173 H 201 H Medical Necessity - Tobacco Use Smoking Status: Never smoker Tobacco Use: Non-smoker Assessment/Plan All Active Problems (Last Updated 08/20/18 @ 11:18 by Adriana Mulligan) Leucocytosis (Acute) DKA (diabetic ketoacidoses) (Acute) This is a 18 years old female patient presented to the emergency room because of nausea and vomiting and she was found to have elevated blood pressure consistent with acute diabetic ketoacidosis. Second day and after patient was about to be discharged, she had a run of nonsustained asymptomatic V. tach. #1 diabetic ketoacidosis: Patient was on DKA protocol with IV insulin drip. Insulin drip discontinued this morning, anion gap closed and serum bicarb went from 8 up to 19 today. She was started on ADA diet, blood sugar has been fluctuating, was up to 314 this afternoon. At this time, she is on Lantus twice daily, Humalog 3 times daily as well as sliding scale. Her potassium was low, was replaced and corrected. Plan: Continue same treatment. #2 dehydration: She is on IV fluids, admission creatinine was 1.04 but still normal. It is secondary to DKA, resolved. #3 asymptomatic nonsustained V. tach: legal summer intern strip reviewed, revealed wide complex tachycardia for about 10 beats, patient was asymptomatic, vital signs are stable. Plan: Check serum magnesium, 2D echocardiogram, repeat EKG tomorrow morning, cancel discharge today. #4 leukocytosis: Likely reactive secondary to acute DKA, white blood cell count is back to normal. #5 type 1 diabetes mellitus: She is on her home regimen of insulin as above, plan to continue same treatment as above. #6 asthma: Clinically stable, pulse ox is maintained on room air. #7 DVT prophylaxis: Low-risk patient, no prophylaxis indicated. This note was generated with [employer] dictation software. It may contain incorrect words, spelling, and punctuation that were not noted in checking the note before signing. Code Visit Inpatient E&M: 14044 Subs Hosp L2
[2018-08-26 14:42] LABS: Magnesium 1.7 mg/dL (1.6-2.6)
[2018-08-26 16:56] LABS: Bedside Glucose 114 mg/dL (70-110)
[2018-08-26 22:02] LABS: Bedside Glucose 188 mg/dL (70-110)
[2018-08-27] VITALS (12 sets, daily range): BP systolic 109–126; BP diastolic 45–83; PULSE 72–102; RESP 13–21; TEMP 36.6–36.9; O2SAT 97–99
[2018-08-27 04:37] LABS: Magnesium 1.9 mg/dL (1.6-2.6); Phosphorus 2.5 mg/dL (2.5-4.9)
--- NOTE | 2018-08-27 05:55 | EKG12_ITS ---
Test Reason : AM Blood Pressure : / mmHG Vent. Rate : 082 BPM Atrial Rate : 082 BPM P-R Int : 126 ms QRS Dur : 088 ms QT Int : 364 ms P-R-T Axes : 054 060 003 degrees QTc Int : 425 ms Normal sinus rhythm with sinus arrhythmia T wave abnormality, consider inferior ischemia Abnormal ECG When compared with ECG of 26-AUG-2018 14:29, MANUAL COMPARISON REQUIRED, DATA IS UNCONFIRMED Confirmed by GREGORIA AGOSTO, RACHNA ([id number]), purchasing expeditor ROSHAN TRUJILLO ([id number]) on 09/03/2018 1:08:26 PM Referred By: Confirmed By:RACHNA KINNEY MD
[2018-08-27 08:02] LABS: Bedside Glucose 64 mg/dL (70-110)
[2018-08-27 08:16] LABS: Bedside Glucose 78 mg/dL (70-110)
--- NOTE | 2018-08-27 08:34 | DCINST_ITS ---
- Discharge Diagnoses Current Active Problems: Current Active and Chronic Problems (Last Updated 08/20/18 @ 11:18 by Adriana Mulligan) Asthma (Chronic) Leucocytosis (Acute) You will use the following diet at home:: Calorie/Carbohydrate Controlled (specify 1200, 1400, etc) - 1800 matthew. Your food should be the consistency of: Regular Discharge Activity: Return to Normal Activity Weight Bearing Status: Full weight bearing Call your doctor if you observe: Fever of 101 or Higher, Shortness of breath, Dizziness, Fainting spells, Chest pain, Increased palpitations (irregular heartbeat), Uncontrolled pain Allergies/Adverse Reactions: Allergies Egg Derived Allergy (Verified 08/25/18 12:48) Other Penicillins Allergy (Verified 08/25/18 12:48) Unknown Sulfa (Sulfonamide Antibiotics) Allergy (Verified 08/25/18 12:48) Unknown milk Adverse Reaction (Verified 08/25/18 12:48) Diarrhea prednisone Adverse Reaction (Verified 08/25/18 12:48) Vomiting bee stings Allergy (Severe, Uncoded 08/25/18 12:48) Unknown Medications to take at Discharge Albuterol Sulfate [Ventolin Hfa] 2 puff INHALATION Q4H PRN PRN 08/25/18 Cetirizine HCl 10 mg PO DAILY 08/25/18 Insulin Aspart [Novolog Flexpen] See Rx Instructions SC TIDCM 08/25/18 Insulin Glargine,Hum.rec.anlog [Basaglar Kwikpen U-100] 40 unit SC BID 08/25/18 Primary Care Physician: Martin Badlwin MD [Primary Care Provider] - Please follow up with your Primary Care Physician in: 2 WEEKS. Test Results: Test results from this visit will be discussed in further detail at your follow- up appointment, if applicable. Please Follow Up With: Radha Sterling NP-C When: 1 WEEK.
[2018-08-27] MEDS: Loratadine 10 MG Tablet PO (09:27)
[2018-08-27 09:37] LABS: Bedside Glucose 207 mg/dL (70-110)
--- NOTE | 2018-08-27 10:37 | CASEMGMT ---
SW made a referral to the [facility] program, spoke w/Jm. She will set up an initial screening appointment with the pt to see if the program can be helpful to her. YOLANDA called pt to let her know as she has already left, left her a message letting her know this referral was made and that Jm from [facility] would call her to set up an appointment, to see if they can assist her. DEV Long, RELATIONS MGR
--- NOTE | 2018-08-27 12:00 | DS.PCM_ITS ---
Discharge Date and Diagnosis Date of Admission: 08/25/18 Date of Discharge: 08/27/18 - Primary Discharge Diagnosis #1 acute DKA. #2 dehydration. #3 episode of asymptomatic nonsustained V. tach. #4 leukocytosis. - Secondary Discharge Diagnosis Chronic Problems (Last Updated 08/20/18 @ 11:18 by Adriana Mulligan) Asthma (Chronic) Type I diabetes mellitus (Chronic) Hospital Course and Treatment Operations: None Procedures: 2-D Echocardiogram, EKG Summary of Care Provided: Patient seen and examined on the day of discharge and appeared to be stable to be discharged home. Today, she denies any complaints. She denies chest pain, shortness of breath, palpitation, dizziness or lightheadedness. No nausea vomiting. She has been eating or drinking and blood sugar has been stable. Her vital signs are stable. This is a 18 years old female patient presented to the emergency room because of nausea and vomiting and she was found to have elevated blood pressure consistent with acute diabetic ketoacidosis. Second day and after patient was about to be discharged, she had a run of nonsustained asymptomatic V. tach. #1 diabetic ketoacidosis: It is attributed to noncompliance, patient forgot to take insulin. Treated in the ICU with DKA protocol with IV insulin drip. With IV insulin therapy, anion gap closed and her serum bicarb normalized. She was started on her home doses of insulin yesterday and she started eating. Her blood sugar has been in the range of 100-200. She has no more symptoms. #2 dehydration: Secondary to above, patient was clinically dehydrated although her kidney function was normal. She was treated with IV fluids. #3 asymptomatic nonsustained V. tach: color television console monitor strip reviewed, revealed wide complex tachycardia for about 10 beats, patient was asymptomatic, vital signs were stable. His serum magnesium was normal. Potassium was low and was replaced and corrected. She has no more episodes of nonsustained V. tach since yesterday. 2D echocardiogram revealed ejection fraction 50-55%, trivial tricuspid insufficiency, RVSP of 19. There was no indication for further cardiac workup. #4 leukocytosis: Likely reactive secondary to acute DKA, white blood cell count returned back to normal. Patient discharged home in a stable medical condition, discharged on same dose of glargine insulin and pre-meal NovoLog, highly recommended follow-up with endocrinology in 1 week, follow-up with PCP in 2 weeks. This note was generated with [employer] dictation software. It may contain incorrect words, spelling, and punctuation that were not noted in checking the note before signing. - Physical Exam General: Alert, Oriented x3, Cooperative, No apparent distress HEENT: Atraumatic, PERRLA, EOMI, Normocephalic Oral: Moist Mucosa, No Gingival or Mucosal Lesions/ Ulcerations Neck: Supple, No JVD, Negative Carotid Bruits, Trachea Midline, Thyroid Normal Size and Texture Lungs: Clear to auscultation, Normal air movement, No rhonchi, No wheeze, No rales Cardiovascular: Regular rate, Regular Rhythm, Normal S1, Normal S2, PMI Normal Abdomen: Bowel Sounds Present, Soft, Non Tender, Non-Distended, No Hepato-sple nomegaly Extremities: No clubbing, No cyanosis, No edema Skin: No rashes, No breakdown Lymphatic: No Cervical, Supraclavicular, or Inguinal Adenopathy Neurological: Cranial nerves II-XII grossly intact, Motor Exam 5/5 strength throughout Psych/Mental Status: Normal Affect, Appropriate Vital Signs Temp Pulse Resp BP Pulse Ox 97.9 F 84 15 113/56 L 98 08/27/18 09:55 08/27/18 09:55 08/27/18 09:55 08/27/18 09:55 08/27/18 09:55 Oxygen Delivery Method Room Air Weight: 125 lb 10.616 oz Body Mass Index (BMI) 24.3 Finger Stick Blood Glucose 138 Intake and Output for Last 24 Hours 08/25/18 08/26/18 08/27/18 23:59 23:59 23:59 Intake Total 1752 / 1752 3774.8 / 3774.8 2800 / 2800 Output Total 500 / 500 2800 / 2800 1900 / 1900 Balance 1252 / 1252 974.8 / 974.8 900 / 900 Laboratory Tests Past 24 Hrs 08/26/18 08/26/18 08/26/18 11:35 11:35 11:35 Sodium 138 Potassium 3.6 3.6 Chloride 110 H Carbon Dioxide 19.0 L Anion Gap 9 BUN 3 L Creatinine 0.53 L Estim Creat Clear Calc 145.68 Est GFR (MDRD) Af Amer 188 Est GFR (MDRD) Non-Af 155 BUN/Creatinine Ratio 5.6 L Glucose 323 H Calcium 8.1 L Phosphorus Magnesium 1.7 08/27/18 04:10 Sodium Potassium Chloride Carbon Dioxide Anion Gap BUN Creatinine Estim Creat Clear Calc Est GFR (MDRD) Af Amer Est GFR (MDRD) Non-Af BUN/Creatinine Ratio Glucose Calcium Phosphorus 2.5 Magnesium 1.9 POC Glucose 08/27/18 08/27/18 08/27/18 09:26 08:13 07:57 POC Glucose 207 H 78 64 L 08/26/18 08/26/18 08/26/18 21:51 16:52 11:30 POC Glucose 188 H 114 H 314 H Discharge Activity: Return to Normal Activity Weight Bearing Status: Full weight bearing Call your doctor if you observe: Fever of 101 or Higher, Shortness of breath, Dizziness, Fainting spells, Chest pain, Increased palpitations (irregular heartbeat), Uncontrolled pain Home Medications: Medications to take at Discharge Albuterol Sulfate [Ventolin Hfa] 2 puff INHALATION Q4H PRN PRN 08/25/18 Cetirizine HCl 10 mg PO DAILY 08/25/18 Insulin Aspart [Novolog Flexpen] See Rx Instructions SC TIDCM 08/25/18 Insulin Glargine,Hum.rec.anlog [Basaglar Kwikpen U-100] 40 unit SC BID 08/25/18 Primary Care Physician: Martin Baldwin MD [Primary Care Provider] - Please follow up with your Primary Care Physician in: 2 WEEKS. Please Follow Up With: Radha Sterling NP-C When: 1 WEEK. Disposition: Home Minutes spent on discharge:: 32 Patient Condition:: Stable Medical Necessity - Tobacco Use Smoking Status: Never smoker Tobacco Use: Non-smoker Meaningful Use Info Meaningful Use Diagnoses (Choose all that apply): None applicable Code Visit Inpatient E&M: 40024 Disch Hosp
--- NOTE | 2018-08-31 10:21 | CCN.REFER ---
T/C TO PATIENT TO MAKE HOME VISIT THIS WEEK. PT DECLINES CCN WORKING WITH PATIENT. STATES SHE IS NEVER HOME, AND SHE IS AWARE ON HOW TO MANAGE DIABETES. OFFERED A ONE TIME VISIT WITH DINKING MACHINE OPERATOR TO SEE IF THERE WOULD BE ANY SERVICES WE COULD ARRANGE FOR PATIENT TO HELP HER, AND SHE ALSO DECLINES. DIRECT PHONE NUMBER GIVEN TO PATIENT IF SHE CHANGED HER MIND. JOSEPH Jimenez MADE AWARE VIA EMAIL.
== END 2018-08-27 09:55 | disposition home or self-care (01) | DRG 420 ==
LOC: ED 13:22 → ICU 15:14
PROVIDERS: Hospitalist; Admitting Provider Internal Medicine; Emergency Provider Emergency Medicine; Family Provider Pediatrics; PCP Pediatrics; Visit Provider Hospitalist
DX: E10.10 Type 1 diabetes mellitus with ketoacidosis without coma (principal); I47.2 Ventricular tachycardia; J45.909 Unspecified asthma, uncomplicated; E86.0 Dehydration; T38.3X6A Underdosing of insulin and oral hypoglycemic [antidiabetic] drugs, initial encounter; Z79.4 Long term (current) use of insulin
CPT/HCPCS: 80048; 80053; 81001; 82009; 82962; 83690; 83735; 84100; 84132; 84703; 85025; 93005; 93306; 97802; 99285; J7030; J7050; A4216; J2405; J7799

== ENCOUNTER 2019-01-10 17:37 | Emergency (ER) | payer MEDICAID, SELFPAY ==
[2018-08-25 15:51] VITALS: BMI 24.3
[2019-01-10 17:40] VITALS: BP 108/55; PULSE 120; RESP 20; TEMP 36.5; O2SAT 96; BMI 21.8
--- NOTE | 2019-01-10 18:17 | ED.VISSUMM ---
- ER Visit Summary Date of Service: 01/10/19 Chief Complaint: Dizziness History of Present Illness: The patient is a 18 F history of type 1 insulin-dependent diabetes with multiple episodes of prior DKA. Patient states around 11 AM this morning when she woke up she had dizziness which she describes as lightheaded. And a mild left-sided headache. She is had nausea and vomiting today. No fever. No diarrhea. No abdominal pain. Denies any dysuria. Says her sugars have actually been running well for her and does not believe she is in DKA. Denies any recent head trauma. Physical Examination: Well-appearing young female no acute distress vital signs are stable and afebrile. H EENT exam pupils round react light extra motions are intact. TMs are normal. Posterior pharynx unremarkable. Moist weeks membranes. Neck nontender no meningismus. Able to touch chin to chest. Lungs clear to auscultation bilaterally. Heart regular rhythm rate about 110 no murmur. Chest wall nontender. Abdomen soft and nontender normal bowel sounds no peritoneal signs. Extremities moves all 4. Neurovascular intact. 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 Equal symmetrical 5 out of 5 dorsi and plantar flexion. Back nontender. Skin unremarkable. Neurologically she is awake and alert with no focal motor or sensory deficits. NIH score is 0. Fingertip to nose and [id number] all within normal limits. Normal speech. No facial droop. Test Results: CBC White count of 6 hemoglobin 16. No bands. Electrolytes sodium 134. CO2 is only 13 her anion gap is 18 her blood sugars 322. Small serum ketones consistent with early DKA. Patient had multiple episodes of DKA before in the past. Emergency Department Course and Treatment: Patient treated with IV fluids. And IV Zofran. Screening labs will be obtained. She has a normal exam. On repeat exam at 19 12 PM patient actually felt well better after IV Zofran and a liter of fluid. She and I discussed her diagnosis of early diabetic ketoacidosis. She really does not want to be admitted to the hospital. I treated with a second liter of normal saline and subcu insulin. Patient was observed for several hours. A repeat chemistry panel was done and her anion gap came down to 11. Her CO2 was 16 and her glucose was now 173. She feels much better and is comfortable being discharged to home. Treatment Plan: Watch her blood sugars closely. Check it before she goes to bed tonight. Normal medications. Return if feeling worse. Disposition: Discharge Impression: Acute diabetic ketoacidosis History of type 1 insulin-dependent diabetes Mild dehydration This note was generated with [employer] dictation software. It may contain incorrect words, spelling, and punctuation that were not noted in review of the chart prior to signing ED Disposition - Plan for ED Patient: Referrals: Martin Baldwin MD [Primary Care Provider] -
[2019-01-10] MEDS: 0.9% Normal Saline 1,000 ML 1000 ML IV (18:40)
[2019-01-10] MEDS: Ondansetron 4 MG/2 ML Vial IV (18:40)
[2019-01-10] MEDS: Acetaminophen 500 MG Tablet 1000 MG PO (18:41)
[2019-01-10 18:46] LABS: Absolute Lymphocyte Count 1.36 X10^3/ul (0.83-4.51); Absolute Neutrophil Count 4.4 X10^3/uL (2.0-7.7); Basophil# 0.04 X10^3/uL; Basophil% 0.7 % (0-1); Eosinophil# 0.01 X10^3/uL; Eosinophils% 0.2 % (0-5); Hematocrit 45.4 % (37-47); Hemoglobin 16.5 g/dl (12.0-15.0); Lymphocyte # 1.36 X10^3/ul (4.0); Lymphocyte % 22.3 % (19-41); Mean Corp Hgb Conc 36.3 g/gl (32-36); Mean Corpuscular Hgb 29.3 pg (27.0-32.0); Mean Corpuscular Volume 80.5 fL (81-99); Mean Platelet Vol. 9.1 fl (6.2-12.0); Monocyte# 0.29 X10^3/uL; Monocyte% 4.8 % (0-10); Neutrophil # 4.37 X10^3/uL (2.7-7.7); Neutrophil % 71.7 % (47-70); Platelet Count 336 K/mm3 (150-450); RBC Distribution Width CV 13.5 % (11.6-14.6); RBC Distribution Width SD 38.9 fl (35.1-43.9); Red Blood Count 5.64 M/mm3 (4.2-5.4); White Blood Count 6.1 K/mm3 (4.4-11.0)
[2019-01-10 18:47] LABS: POSITIVE COUNT NO; POSITIVE DIFFERENTIAL NO; POSITIVE MORPHOLOGY NO
[2019-01-10 18:58] LABS: Anion Gap 18 (5-15); BUN 8 mg/dL (7-18); BUN/Creat Ratio 10.3 RATIO (10-20); Calcium,Total 8.7 mg/dL (8.5-10.1); Chloride 103 mmol/L (98-107); Creatinine, Serum 0.78 mg/dL (0.55-1.02); EST Glomerular Filtration Rate 100 mL/min (>60); Est Glom Filt Rate - Afr Amer 121 mL/min (>60); Glucose 322 mg/dL (74-106); Sodium Level 134 mmol/L (136-145)
[2019-01-10] MEDS: Insulin Lispro 100 UNIT/ML INSULN.PEN 14 UNIT SC (19:30)
[2019-01-10] MEDS: 0.9% Normal Saline 1,000 ML 999 ML IV (19:31)
[2019-01-10 21:19] VITALS: BP 114/64; PULSE 85; RESP 14; O2SAT 98
[2019-01-10 21:38] LABS: Anion Gap 11 (5-15); BUN 7 mg/dL (7-18); BUN/Creat Ratio 12.1 RATIO (10-20); Calcium,Total 7.4 mg/dL (8.5-10.1); Chloride 113 mmol/L (98-107); Creatinine, Serum 0.58 mg/dL (0.55-1.02); EST Glomerular Filtration Rate 140 mL/min (>60); Est Glom Filt Rate - Afr Amer 170 mL/min (>60); Estimated Creatinine Clearance 119.68 ml/min; Glucose 173 mg/dL (74-106); Potassium 3.2 mmol/L (3.5-5.1); Sodium Level 140 mmol/L (136-145)
--- NOTE | 2019-01-10 22:26 | ED.DEP ---
ED Disposition - Plan for ED Patient: Disposition: Home or Assisted Living Instructions: Diabetes and Your Child: Preventing Diabetic Ketoacidosis (DKA) Referrals: Martin Baldwin MD [Primary Care Provider] - 1-2 Days if not improving Additional Instructions: Plenty of fluids primarily water. Watch your blood sugars very closely and check your blood sugar before going to bed tonight. Continue your current medications. If you are feeling worse return.
[2019-01-10 22:29] VITALS: RESP 18; O2SAT 98
== END 2019-01-10 22:30 | disposition home or self-care (01) ==
PROVIDERS: Emergency Provider Emergency Medicine; Family Provider Pediatrics; PCP Pediatrics
DX: E10.10 Type 1 diabetes mellitus with ketoacidosis without coma (principal); Z79.4 Long term (current) use of insulin; E86.0 Dehydration; J45.909 Unspecified asthma, uncomplicated; Z72.0 Tobacco use
CPT/HCPCS: 80048; 82009; 85025; 96361; 96374; 99283; J7030; A4216; J2405

== ENCOUNTER 2019-02-14 11:49 | Emergency (ER) | payer MEDICAID, SELFPAY ==
[2019-02-14 11:50] VITALS: BP 112/66; PULSE 117; RESP 17; TEMP 36.8; O2SAT 98; BMI 22.0
--- NOTE | 2019-02-14 12:08 | ED.DCSUM_ITS ---
- ER Visit Summary Date of Service: 02/14/19 Chief Complaint: Low back and abdominal discomfort History of Present Illness: The patient is a 18 F past male history of type I insulin pen diabetes and asthma. States she is had 5-day history of low back pain. And now suprapubic abdominal discomfort. She describes it as a pressure. Has had mild constipation. No fever. Nausea but no vomiting. No trauma. No prior abdominal surgeries. She does not believe she is her last menstrual period is been on the last 2 to 3 weeks. She denies any vaginal bleeding or discharge. No specific dysuria. Physical Examination: Young female no distress. Vital signs stable afebrile. HEENT exam unremarkable. Moist week's membranes. Lungs clear to auscultation bilaterally. Heart regular rhythm no murmur. Abdomen soft. Nondistended. Normal bowel sounds. No peritoneal signs. Both the right upper right lower quadrant unremarkable. She describes very mild tenderness periumbilical suprapubic area. There is no organomegaly or masses. No hernias. And no signs of obstruction. She is moving all 4 extremities. Back is nontender. Neurologically she is awake and alert. Test Results: CBC White count 3. Hemoglobin 14. Chemistries sodium 133. Pota ssium 3.3. Anion gap of 17. Glucose 259. Normal BUN and creatinine. Lipase normal. UA normal. test negative. Liver enzymes are all elevated. I discussed with patient she is never had a history of hepatitis or any liver problems that she is aware of. I will have them send off a hepatitis panel. Emergency Department Course and Treatment: Patient with nonspecific abdominal pain. Has a benign exam. Treated with Zofran for nausea. Toradol for pain Repeat exam patient is doing well at 1400. Abdomen is benign. She and I went over all the test. She has no prior history of hepatitis. She denies any known exposure. She denies any IV drug abuse. Hepatitis panel ordered. I spoke to the gun repair clerk on-call for Dr. Martin Baldwin who was last physician she is seen. And she will leave him a note to ensure close follow-up. I will discuss all this with the patient. She has had a recent CAT scan within the last year or so which was unremarkable both the gallbladder and the liver. No abnormalities and no gallstones seen. Treatment Plan: Outpatient follow-up for hepatitis studies. Ultrasound of the liver and gallbladder. And follow-up with her primary care physician. Disposition: Discharge Impression: Acute abdominal pain uncertain etiology. History of diabetes This note was generated with [employer] dictation software. It may contain incorrect words, spelling, and punctuation that were not noted in review of the chart prior to signing ED Disposition - Plan for ED Patient: Referrals: Martin Baldwin MD [Primary Care Provider] -
[2019-02-14] MEDS: Ondansetron 4 MG/2 ML Vial IV (12:49)
[2019-02-14] MEDS: Ketorolac 30 MG/ML Syringe IV (12:49)
[2019-02-14 13:02] LABS: Basophil# 0.03 X10^3/uL; Basophil% 0.9 % (0-1); Eosinophil# 0.03 X10^3/uL; Eosinophils% 0.9 % (0-5); Hematocrit 43.5 % (37-47); Hemoglobin 14.4 g/dL (12.0-15.0); Lymphocyte % 28.4 % (19-41); Mean Corp Hgb Conc 33.1 g/dL (32-36); Mean Corpuscular Hgb 28.8 pg (27.0-32.0); Mean Platelet Vol. 9.2 fl (6.2-12.0); Monocyte# 0.19 X10^3/uL; NRBC Flagged by Analyzer 0 % (0-5); Neutrophil % 63.2 % (47-70); POSITIVE MORPHOLOGY YES; Platelet Count 188 K/mm3 (150-450); RBC Distribution Width CV 12.4 % (11.6-14.6); RBC Distribution Width SD 39.7 fl (35.1-43.9); White Blood Count 3.2 K/mm3 (4.4-11.0)
[2019-02-14 13:05] LABS: Differential Indicated SCAN CRITERIA MET
[2019-02-14 13:20] LABS: Bacteria 0 SEEN /hpf (None Seen); Mucous, Urine 0 SEEN /hpf (<or=2+); Red Blood Cells-Urine 0 SEEN /hpf (0-5)
[2019-02-14 13:24] LABS: Differential Comment SCANNED; Reactive Lymphocyte 1+
[2019-02-14 13:26] LABS: Color, Urine Yellow (Yellow); Glucose, Dipstick 1000 mg/dl (Normal); Leukocyte Esterase-Dipstick Negative /ul (Negative); Nitrite-Dipstick Negative (Negative); Occult Blood-Urine Negative /ul (Negative); Protein-Dipstick 30 mg/dl (Negative); Specific Gravity, Urine 1.025 (1.002-1.030); Urine Bilirubin Dipstick Negative (Negative); Urine Clarity Clear (Clear); Urine Urobilinogen Normal (Normal)
[2019-02-14 13:31] LABS: Ketone-Dipstick 150 mg/dl (Negative)
[2019-02-14 13:32] LABS: Internal QC Validated? YES +Cl - CLEAR BKGD
[2019-02-14 13:33] LABS: Pregnancy, Serum, hCG Quali. NEGATIVE Negative
[2019-02-14 13:36] LABS: Squamous Epithelial Cells - UA 0-5 SEEN /hpf (5-10); White Blood Cells 0-5 SEEN /hpf (0-5)
[2019-02-14 13:39] LABS: AST(SGOT) 2281 U/L (15-37); Alanine Aminotransfer ALT/SGPT 3278 U/L (13-56); Albumin, Serum 3.3 g/dL (3.2-5.0); Alkaline Phosphatase 340 U/L (45-117); Anion Gap 17 (5-15); BUN 8 mg/dL (7-18); BUN/Creat Ratio 14.7 RATIO (10-20); Calcium,Total 7.9 mg/dL (8.5-10.1); Chloride 103 mmol/L (98-107); Creatinine, Serum 0.54 mg/dL (0.55-1.02); EST Glomerular Filtration Rate 150 mL/min (>60); Est Glom Filt Rate - Afr Amer 182 mL/min (>60); Estimated Creatinine Clearance 129.86 ml/min; Globulin 3.4 g/dL (2.2-4.2); Glucose 259 mg/dL (74-106); Lipase 88 U/L (73-393); Potassium 3.3 mmol/L (3.5-5.1); Protein, Total 6.7 g/dL (6.4-8.2); Sodium Level 133 mmol/L (136-145)
--- NOTE | 2019-02-14 14:12 | ED.DEP ---
ED Disposition - Plan for ED Patient: Disposition: Home or Assisted Living Instructions: ABDOMINAL PAIN, Unknown Cause, (Female) Referrals: Martin Baldwin MD [Primary Care Provider] - As soon as possible Additional Instructions: Absolute need to follow-up with Dr. Baldwin this week. We will send hepatitis studies that need followed up. More than likely you also need a ultrasound of the right upper quadrant to look at both your liver and your gallbladder. Your liver enzymes are elevated for an unknown cause at this time. This could be secondary to hepatitis versus other causes. This needs further evaluation. Dr. Martin Baldwin's office tomorrow. Be evaluated by them this week.
[2019-02-14 14:29] VITALS: BP 109/67; PULSE 93; RESP 16; O2SAT 98
[2019-02-16 04:06] LABS: HEPATITIS B SURFACE AG Negative (Negative); Hepatitis B Core AB IgM Negative (Negative)
[2019-02-16 13:05] LABS: Hep C Antibodies <0.1 s/co ratio (0.0-0.9)
[2019-02-16 13:08] LABS: Hepatitis A IgM Antibody Positive (Negative)
== END 2019-02-14 14:35 | disposition home or self-care (01) ==
PROVIDERS: Emergency Provider Emergency Medicine; Family Provider Pediatrics; PCP Pediatrics
DX: R10.9 Unspecified abdominal pain (principal); R94.5 Abnormal results of liver function studies; R11.0 Nausea; M54.5 Low back pain; E10.9 Type 1 diabetes mellitus without complications; Z79.4 Long term (current) use of insulin; J45.909 Unspecified asthma, uncomplicated
CPT/HCPCS: 80048; 80074; 80076; 81001; 83690; 84703; 85025; 96374; 96375; 99285; A4216; J2405

== ENCOUNTER 2019-02-15 14:40 | Inpatient (IN) | payer MEDICAID, SELFPAY ==
[2019-02-14 11:50] VITALS: BMI 22.0
[2019-02-15] VITALS (8 sets, daily range): BP systolic 107–128; BP diastolic 59–89; PULSE 90–120; RESP 12–20; TEMP 36.7–37.7; O2SAT 98–100; BMI 22.0; BMI 21.9
--- NOTE | 2019-02-15 15:15 | US_ITS ---
STUDY: ABDOMINAL ULTRASOUND - RIGHT UPPER QUADRANT REASON FOR VISIT: Female, 18 years old. Right upper quadrant pain. TECHNIQUE: Ultrasound evaluation of the right upper quadrant was performed with real-time and static rosario-scale imaging. TECHNICAL QUALITY: Adequate. COMPARISON: CT of the abdomen and pelvis, December 25, 2017. FINDINGS: Liver: The liver measures 14.3 cm. There is normal echogenicity of the liver. The bile ducts are within normal limits. There is hepatic color flow. The direction of portal flow is hepatopetal. There is no demonstrated mass lesion. Gallbladder: Normal distended gallbladder. The gallbladder wall is edematous and measures 7.2 mm. There is a positive sonographic Sam's sign. There is no pericholecystic fluid. There are no gallstones. Common Bile Duct (C.B.D.): The common bile duct measures 2.8 mm. Pancreas: Normal size of the head, body and tail of the pancreas. There is normal echogenicity of the pancreas. There is no demonstrated pancreatic mass or cyst. Right Kidney: Normal size of the right kidney. The right kidney measures 11.2 cm. Normal renal cortex. The right cortex measures 1.7 cm. There is no demonstrated renal mass or cyst. There is no right hydronephrosis. US/Gallbladder IMPRESSION: 1. Thickened edematous gallbladder with positive Sam's sign. There is no evidence of gallstones. Question acalculous cystitis. 2. Otherwise normal right upper quadrant ultrasound. Electronically Signed: Nav Mishra DO at 17:01 EDT Tel [phone], Service support ,
--- NOTE | 2019-02-15 15:22 | ED.DCSUM_ITS ---
- ER Visit Summary Date of Service: 02/15/19 Chief Complaint: Recurrent nausea and vomiting with abdominal pain. History of Present Illness: The patient is a 18 F 3 of type 1 insulin-dependent diabetes and asthma. Patient is actually seen emergency department yesterday had normal labs except elevated liver enzymes for unknown cause. This was sent for hepatitis studies. [facility] physician office our on-call physician was spoken to yesterday she went to their office today but they told her they could not get her into the middle of February so they sent her into the ER. She is been sick now for 6 days. With nausea and vomiting. She has a band of abdominal pain in the upper quadrants. Denies any fever or chills. No dysuria. Physical Examination: Young female no acute distress vital signs are stable and the heart rate of 120 clinically she looks dehydrated. HEENT exam dry mucous memories. Neck nontender no lymphadenopathy. Lungs clear to auscultation bilaterally. Heart tachycardic rate about 120 no murmur. Abdomen is soft but she has epigastric and right upper quadrant tenderness. No rebound guarding. No rigidity. Right lower quadrant unremarkable. She is nondistended. She has normal bowel sounds. Remedies moves all 4 no edema. Calves nontender. Jhoana rologically she is awake and alert. No focal motor deficits. Test Results: CBC shows white count of 3. Hemoglobin 15. Chemistries sodium 131. Anion gap of 15 glucose 259. Normal creatinine. Liver enzymes are elevated higher than they were yesterday. Telemetry bilirubin 4.4 direct of 3.4 alk phos of 433. ALT of 3692 and AST of 3162. Lipase normal moderate ketones probably from dehydration clinically she is not in DKA. Ultrasound of her right upper quadrant showed a thickened edematous gallbladder the radiologist with question acalculous cholecystitis per the tech there was pericholecystic fluid. Emergency Department Course and Treatment: Patient treated with IV fluids and Zofran for nausea. Labs will be obtained in the right upper quadrant ultrasound. Treatment Plan: Continue to use it at night repeat exam patient is doing better. She will be treated with a second liter of IV fluids. I very spoken to the on-call general surgeon Dr. Davidson barron. He will be and evaluate the patient and admit her. Currently differential diagnosis includes acalculous cholecystitis versus hepatitis versus other etiology. She will need to be admitted either general surgery or the hospitalist. Disposition: Admission Impression: Acute nausea and vomiting Acute abdominal pain uncertain etiology (possibly calculus cholecystitis versus hepatitis pending definitive diagnosis) History of diabetes type 1 Acute dehydration This note was generated with [employer] dictation software. It may contain incorrect words, spelling, and punctuation that were not noted in review of the chart prior to signing ED Disposition - Plan for ED Patient: Referrals: Martin Baldwin MD [Primary Care Provider] -
[2019-02-15] MEDS: 0.9% Normal Saline 1,000 ML 1000 ML IV (15:32)
[2019-02-15] MEDS: Ondansetron 4 MG/2 ML Vial IV (15:32)
[2019-02-15 15:40] LABS: Bedside Glucose 261 mg/dL (70-110)
[2019-02-15 15:45] LABS: Absolute Neutrophil Count 2.2 X10^3/uL (2.0-7.7); Basophil# 0.02 X10^3/uL; Basophil% 0.6 % (0-1); Hematocrit 46.8 % (37-47); Hemoglobin 15.8 g/dL (12.0-15.0); Lymphocyte % 19.5 % (19-41); Mean Corp Hgb Conc 33.8 g/dL (32-36); Mean Corpuscular Hgb 29.2 pg (27.0-32.0); Mean Corpuscular Volume 86.3 fL (81-99); Monocyte# 0.19 X10^3/uL; Monocyte% 6.2 % (0-10); NRBC Flagged by Analyzer 0 % (0-5); Neutrophil # 2.24 X10^3/uL (2.7-7.7); Neutrophil % 72.7 % (47-70); POSITIVE DIFFERENTIAL YES; POSITIVE MORPHOLOGY YES; Platelet Count 225 K/mm3 (150-450); RBC Distribution Width CV 12.9 % (11.6-14.6); RBC Distribution Width SD 40.3 fl (35.1-43.9); Red Blood Count 5.42 M/mm3 (4.2-5.4); White Blood Count 3.1 K/mm3 (4.4-11.0)
[2019-02-15 16:04] LABS: Differential Indicated SCAN CRITERIA MET
[2019-02-15 16:42] LABS: AST(SGOT) 3162 U/L (15-37); Alanine Aminotransfer ALT/SGPT 3692 U/L (13-56); Albumin, Serum 3.2 g/dL (3.2-5.0); Alkaline Phosphatase 433 U/L (45-117); Anion Gap 15 (5-15); BUN 6 mg/dL (7-18); BUN/Creat Ratio 8.2 RATIO (10-20); Bilirubin, Direct 3.44 mg/dL (0.00-0.30); Calcium,Total 7.9 mg/dL (8.5-10.1); Chloride 104 mmol/L (98-107); Creatinine, Serum 0.73 mg/dL (0.55-1.02); EST Glomerular Filtration Rate 107 mL/min (>60); Est Glom Filt Rate - Afr Amer 129 mL/min (>60); Estimated Creatinine Clearance 95.95 ml/min; Globulin 3.6 g/dL (2.2-4.2); Glucose 259 mg/dL (74-106); Lipase 69 U/L (73-393); Potassium 3.4 mmol/L (3.5-5.1); Protein, Total 6.8 g/dL (6.4-8.2); Sodium Level 131 mmol/L (136-145)
--- NOTE | 2019-02-15 17:44 | CT_ITS ---
STUDY: CT ABDOMEN AND PELVIS WITHOUT CONTRAST REASON FOR EXAM: Female, 18 years old. Right upper quadrant pain. Abnormal ultrasound. History of asthma and type 1 diabetes. RADIATION DOSAGE (If Supplied By Facility): CTDIvol = ( 6.04 ) mGy, DLP = ( 267.07 ) mGycm TECHNIQUE: Transaxial images were obtained from the dome of the diaphragm to the symphysis pubis without oral contrast, and without intravenous contrast. Sagittal and coronal images were reconstructed. Individualized dose optimization techniques were used for this CT. COMPARISON: Abdominal ultrasound, February 15, 2019. CT of the abdomen and pelvis, January 24, 2018. FINDINGS: The visualized lung bases are unremarkable. The visualized portions of the heart are within normal limits. Normal liver. The gallbladder demonstrates a markedly edematous wall. There is no evidence of filling defect. There is no biliary ductal dilatation. Normal spleen. Normal pancreas. Normal bilateral adrenal glands. Normal right kidney. Normal left kidney. Normal visualized stomach. Normal small intestine. Normal colon. The appendix is visualized and appears normal. Normal abdominal aorta. Normal inferior vena cava. Normal retroperitoneum. Normal urinary bladder. Normal uterus and ovaries. No pelvic lymphadenopathy. There is no free air within the peritoneal cavity. Minimal free fluid is seen in the right paracolic gutter and deep pelvis. Normal abdominal wall. Normal osseous structures. CT/Abdomen/Pelvis W IV Cont ONLY IMPRESSION: 1. Markedly edematous gallbladder wall without evidence of filling defect or biliary ductal dilatation. The differential this finding is wide and this most likely is secondary to some form of cholecystitis, hepatitis or hypoalbuminemia. 2. Minimal fluid in the pelvis. Question physiologic. 3. No other evidence for abdominal or pelvic abnormality. Electronically Signed: Nav Mishra DO at 18:49 EDT Tel [phone], Service support ,
[2019-02-15] MEDS: 0.9% Normal Saline 1,000 ML 999 ML IV (17:50)
--- NOTE | 2019-02-15 18:11 | ED.RN ---
NOT SEPSIS RISK PER MD
[2019-02-15 18:28] LABS: Platelet Estimate ADEQUATE (ADEQ); Red Cell Morphology NORM C+C NORMAL (NORM C&C)
--- NOTE | 2019-02-15 18:50 | PCM.CONS.GEN ---
Problem List (1) Hepatitis Status: Acute Reason for Consult Date of Consultation: 02/15/19 Reason for Consultation: Right upper quadrant pain and elevated liver enzymes History of Present Illness: The patient is a 18 year old F who presents with 6 days of right upper quadrant pain. She says that the pain started about 6 days ago and is gradually worsened. She started having nausea and vomiting last night. She was in the emergency room yesterday and hepatitis panel was drawn she came back today with increased nausea and vomiting and pain. She says the pain is in the right upper quadrant. It radiates to the back. She is never had any problems like this before. Past Medical History Past Medical History (Chronic Problems): Chronic Problems (Last Updated 08/20/18 @ 11:18 by Adriana Mulligan) Asthma (Chronic) Type I diabetes mellitus (Chronic) Medical History: Medical History (Last Updated 08/20/18 @ 11:18 by Adriana Mulligan) Asthma J45.909 Diabetes type 1, controlled E10.9 Dx : age 8 Last exacerbation : DKA : 07/07 Hypoglycemic episode : never ER visit : 07/07 Allergies Egg Derived Allergy (Verified 02/15/19 14:43) Other Penicillins Allergy (Verified 02/15/19 14:43) Unknown Sulfa (Sulfonamide Antibiotics) Allergy (Verified 02/15/19 14:43) Unknown milk Adverse Reaction (Verified 02/15/19 14:43) Diarrhea prednisone Adverse Reaction (Verified 02/15/19 14:43) Vomiting bee stings Allergy (Severe, Uncoded 02/15/19 14:43) Unknown Home Medications: Ambulatory Orders Medication Instructions Recorded Albuterol Sulfate [Ventolin Hfa] 2 puff INHALATION Q4H PRN PRN 08/25/18 Cetirizine HCl 10 mg PO DAILY 08/25/18 Insulin Aspart [Novolog Flexpen] See Rx Instructions SC TIDCM 08/25/18 Insulin Glargine,Hum.rec.anlog 40 unit SC BID 08/25/18 [Basaglar Kwikpen U-100] pen needle, diabetic 32 gauge x See Dose Instructions .ROUTE 09/07/18 .MEDSUPPLY #200 ea Blood Sugar Diagnostic [FreeStyle 0 ) .ROUTE .MEDSUPPLY 02/15/19 Lite Strips] Surgical History: Surgical History (Last Reviewed 08/20/18 @ 10:59 by Adriana Mulligan) History of placement of ear tubes Z86.69 Surgical History: tonsillectomy, - - status post control insertion Psychiatric History: No pertinent psych hx 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 Denies: Chills HEENT: Denies: Difficulty Swallowing Cardiovascular: Denies: Chest Pain Respiratory: Denies: Cough, Shortness of Breath Gastrointestinal: Reports: Abdominal Pain, Constipation, Nausea, Vomiting. Denies: Diarrhea, Hematemesis, Melena Genitourinary: Denies: Dysuria Musculoskeletal: Denies: Joint Tenderness Skin: Denies: Dryness, Jaundice Neurological: Denies: Focal weakness Psychiatric: Denies: Anxiety Hematologic/ Lymphatic: Denies: Anemia Patient Problems: Active and Suspected Problems (Last Updated 08/20/18 @ 11:18 by Adriana Mulligan) Hepatitis (Acute) - Physical Exam General: Alert, Oriented x3 Neck: Supple Lungs: Normal air movement Cardiovascular: Regular Rhythm, Tachycardic Abdomen: Soft, Non-Distended, Tender - Tender in the right upper quadrant Extremities: No clubbing Skin: No rashes Musculoskeletal: No Muscle Wasting Neurological: Cranial nerves II-XII grossly intact, Deep Tendon Reflexes 2+/4 and Symmetrical Psych/Mental Status: Normal Affect Vital Signs Temp Pulse Resp BP Pulse Ox 99.8 F H 105 H 20 H 116/69 100 02/15/19 17:00 02/15/19 18:45 02/15/19 18:45 02/15/19 18:45 02/15/19 18:45 Oxygen Delivery Method Room Air Weight: 109 lb Body Mass Index (BMI) 22.0 Finger Stick Blood Glucose 261 Laboratory Tests Past 24 Hrs 02/15/19 02/15/19 02/15/19 15:25 15:25 15:25 WBC 3.1 L RBC 5.42 H Hgb 15.8 H Hct 46.8 MCV 86.3 MCH 29.2 MCHC 33.8 RDW Std Deviation 40.3 RDW Coeff of Marilynn 12.9 Plt Count 225 MPV 9.0 Immature Gran % (Auto) 1.000 H Neut % (Auto) 72.7 H Lymph % (Auto) 19.5 [place] % (Auto) 6.2 Eos % (Auto) 0.0 Baso % (Auto) 0.6 Absolute Neuts (auto) 2.2 Absolute Lymphs (auto) 0.60 L Nucleated RBC % 0 Differential Comment SEE COMMENT Diff Path Review May foll Platelet Estimate ADEQUATE RBC Morphology NORM C+C Sodium 131 L Potassium 3.4 L Chloride 104 Carbon Dioxide 12.0 L Anion Gap 15 BUN 6 L Creatinine 0.73 Estim Creat Clear Calc 95.95 Est GFR (MDRD) Af Amer 129 Est GFR (MDRD) Non-Af 107 BUN/Creatinine Ratio 8.2 L Glucose 259 H Calcium 7.9 L Total Bilirubin 4.40 H Direct Bilirubin 3.44 H AST 3162 H ALT 3692 H Alkaline Phosphatase 433 H Total Protein 6.8 Albumin 3.2 Globulin 3.6 Lipase 69 L Acetone Level MODERATE H POC Glucose 02/15/19 15:36 POC Glucose 261 H Clinical Impression(s) from Imaging Studies Gallbladder Ultrasound 02/15/19 15:15 IMPRESSION: 1. Thickened edematous gallbladder with positive Sam's sign. There is no evidence of gallstones. Question acalculous cystitis. 2. Otherwise normal right upper quadrant ultrasound. Electronically Signed: Nav Mishra DO at 17:01 EDT Tel [phone], Service support , Abdomen/Pelvis CT 02/15/19 17:44 IMPRESSION: 1. Markedly edematous gallbladder wall without evidence of filling defect or biliary ductal dilatation. The differential this finding is wide and this most likely is secondary to some form of cholecystitis, hepatitis or hypoalbuminemia. 2. Minimal fluid in the pelvis. Question physiologic. 3. No other evidence for abdominal or pelvic abnormality. Electronically Signed: Nav Mishra DO at 18:49 EDT Tel [phone], Service support , Assessment/Plan All Active Problems (Last Updated 08/20/18 @ 11:18 by Adriana Mulligan) Hepatitis (Acute) Leucocytosis (Acute) DKA (diabetic ketoacidoses) (Acute) 18-year-old female with elevated liver enzymes and right upper quadrant pain 1. Patient describes 6 days duration to this illness. She had an ultrasound and CT scan. Ultrasound showed no stones in the gallbladder wall. CT scan showed markedly thickened gallbladder wall with no stones or dilation of her biliary tree. Patient has markedly elevated LFTs with no common duct dilation. I suspect this is due to hepatitis. It would be very unlikely for patient of her age to have a calculus cholecystitis especially with a normal white count. 2. The patient noted that she ate raw pork about a day before this all started 7 days ago. It is likely that she has a viral hepatitis. She denies any needle use or drug use recently. With this level of LFT elevation would expect to see some sort of dilation if gallstones or gallbladder was the cause. 3. Hepatitis panel is pending. Continue supportive treatment at this time. Recheck LFTs and white count in the morning. Davidson Zelaya MD Pager: [facility] [address] [place] [address], [address] [place] [address] Office:
--- NOTE | 2019-02-15 19:02 | PCM.HP.STD ---
Problem List (1) Acute liver injury Status: Acute (2) Asthma Status: Chronic Qualifiers: Asthma severity: mild Asthma persistence: unspecified Asthma complication type: uncomplicated Qualified Code(s): J45.909 - Unspecified asthma, uncomplicated (3) Leucocytosis Status: Acute Qualifiers: Leukocytosis type: unspecified Qualified Code(s): D72.829 - Elevated white blood cell count, unspecified (4) DKA (diabetic ketoacidoses) Status: Inactive Qualifiers: Diabetes mellitus type: type 1 Diabetes mellitus complication detail: without coma Qualified Code(s): E10.10 - Type 1 diabetes mellitus with ketoacidosis without coma (5) Type I diabetes mellitus Status: Chronic Qualifiers: Diabetes mellitus complication status: with unspecified complications History of Present Illness Date of Admission: 02/15/19 Chief Complaint: Abdominal pain for 6 days The patient is a 18 year old F with no prior hepatobiliary disease came to ER with 6 days of right upper quadrant abdominal pain. Patient denies any previous history of pancreatitis, gallbladder stone or hepatitis. Patient is having nausea and vomiting since last night. She initially took Tylenol, claims about 2 g daily for 4 days but did not take for last 2 days last she thought it might hurt her liver. She came to ER yesterday and hepatitis tests were ordered and was sent home. Patient denies fever but had chills. Has loss of appetite. Basic blood work shows AST ALT in 3000, got worse than yesterday, total bili 4.4, direct 3.4 alkaline phosphatase 433. Sodium 131, K3.4, bicarb 12, anion gap 15. She has mild leukopenia, WBC 3.1 thousand, platelet count normal. Right upper quadrant sonogram was done on 02/15 and reported as thick edematous gallbladder, 7.2 mm with positive Sam sign. No evidence of gallstone. CBD 2.8 mm. No pericholecystic fluid. Possible acalculous cholecystitis. Pancreas reported as normal size and normal echogenicity. Liver 14.3 cm with normal echogenicity. Hepatopetal color flow. No mass lesion. [] Past Medical History Past Medical History (Chronic Problems): Chronic Problems (Last Updated 08/20/18 @ 11:18 by Adriana Mulligan) Asthma (Chronic) Type I diabetes mellitus (Chronic) Medical History: Medical History (Last Updated 08/20/18 @ 11:18 by Adriana Mulligan) Asthma J45.909 Diabetes type 1, controlled E10.9 Dx : age 8 Last exacerbation : DKA : 07/07 Hypoglycemic episode : never ER visit : 07/07 Allergies Egg Derived Allergy (Verified 02/15/19 14:43) Other Penicillins Allergy (Verified 02/15/19 14:43) Unknown Sulfa (Sulfonamide Antibiotics) Allergy (Verified 02/15/19 14:43) Unknown milk Adverse Reaction (Verified 02/15/19 14:43) Diarrhea prednisone Adverse Reaction (Verified 02/15/19 14:43) Vomiting bee stings Allergy (Severe, Uncoded 02/15/19 14:43) Unknown Home Medications: Ambulatory Orders Medication Instructions Recorded Albuterol Sulfate [Ventolin Hfa] 2 puff INHALATION Q4H PRN PRN 08/25/18 Cetirizine HCl 10 mg PO DAILY 08/25/18 Insulin Aspart [Novolog Flexpen] See Rx Instructions SC TIDCM 08/25/18 Insulin Glargine,Hum.rec.anlog 40 unit SC BID 08/25/18 [Basaglar Kwikpen U-100] pen needle, diabetic 32 gauge x See Dose Instructions .ROUTE 09/07/18 5/32 .MEDSUPPLY #200 ea Blood Sugar Diagnostic [FreeStyle 0 ) .ROUTE .MEDSUPPLY 02/15/19 Lite Strips] Surgical History: Surgical History (Last Reviewed 08/20/18 @ 10:59 by Adriana Mulligan) History of placement of ear tubes Z86.69 Surgical History: tonsillectomy, - - status post control insertion Psychiatric History: No pertinent psych hx 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 Smoking Status: Former smoker - *Family History Paternal Family History: Family History (Last Reviewed 08/20/18 @ 10:59 by Adriana Mulligan) Grandmother Diabetes Sister Asthma Brother Asthma History Items: Diabetes Sibling Family History: Family History (Last Reviewed 08/20/18 @ 10:59 by Adriana Mulligan) Grandmother Diabetes Sister Asthma Brother Asthma History Items: Asthma Review of Systems Constitutional: Reports: Chills HEENT: Denies: Head Aches, Sinus Congestion, Sinus Drainage Cardiovascular: Denies: Chest Pain, Palpitations Respiratory: Denies: Cough, Shortness of breath at rest, Sputum production Gastrointestinal: Reports: Abdominal Pain, Nausea, Vomiting. Denies: Constipation, Diarrhea, Hematemesis, Hematochezia, Melena Genitourinary: Denies: Dysuria Musculoskeletal: Denies: Joint Pain, Joint Tenderness Skin: Denies: Rash, Wounds Neurological: Denies: Numbness, Tingling, Focal weakness Psychiatric: Denies: Anxiety, Depression, Homicidal Ideations, Suicidal Ideations Hematologic/ Lymphatic: Denies: Easy Bruising, Easy Bleeding VTE Information - Inpt Only VTE Present on Admission: No VTE Mechan Device Prophylaxis: None VTE Pharm Prophylaxis ordered?: No Reason prophylaxis not ordered:: Procedure Not Indicated Patient Problems: Active and Suspected Problems (Last Updated 08/20/18 @ 11:18 by Adriana Mulligan) Hepatitis (Acute) Acute liver injury (Acute) - Physical Exam General: Alert, Oriented x3, Cooperative HEENT: Atraumatic, PERRLA, EOMI, Normocephalic Neck: Supple, No JVD, Negative Carotid Bruits Lungs: Clear to auscultation, Normal air movement Cardiovascular: Regular rate, Regular Rhythm, Normal S1, Normal S2, No murmurs Abdomen: Bowel Sounds Present, Soft, Non-Distended, No Hepato-splenomegaly, Tender - Tenderness present over right upper quadrant. Gallbladder not palpable. Liver not enlarged. Extremities: No edema, Capillary Refill Less than 3 Seconds Skin: No rashes, No breakdown Musculoskeletal: No Tenderness to Palpation of Joints or Extremities Lymphatic: No Cervical, Supraclavicular, or Inguinal Adenopathy Neurological: Cranial nerves II-XII grossly intact, Deep Tendon Reflexes 2+/4 and Symmetrical, Neuro grossly intact, Motor Exam 5/5 strength throughout Psych/Mental Status: Normal Affect, Appropriate Vital Signs Temp Pulse Resp BP Pulse Ox 99.8 F H 105 H 20 H 116/69 100 02/15/19 17:00 02/15/19 18:45 02/15/19 18:45 02/15/19 18:45 02/15/19 18:45 Oxygen Delivery Method Room Air Weight: 109 lb Body Mass Index (BMI) 22.0 Finger Stick Blood Glucose 261 Laboratory Tests Past 24 Hrs 02/15/19 02/15/19 02/15/19 15:25 15:25 15:25 WBC 3.1 L RBC 5.42 H Hgb 15.8 H Hct 46.8 MCV 86.3 MCH 29.2 MCHC 33.8 RDW Std Deviation 40.3 RDW Coeff of Marilynn 12.9 Plt Count 225 MPV 9.0 Immature Gran % (Auto) 1.000 H Neut % (Auto) 72.7 H Lymph % (Auto) 19.5 [place] % (Auto) 6.2 Eos % (Auto) 0.0 Baso % (Auto) 0.6 Absolute Neuts (auto) 2.2 Absolute Lymphs (auto) 0.60 L Nucleated RBC % 0 Differential Comment SEE COMMENT Diff Path Review May foll Platelet Estimate ADEQUATE RBC Morphology NORM C+C Sodium 131 L Potassium 3.4 L Chloride 104 Carbon Dioxide 12.0 L Anion Gap 15 BUN 6 L Creatinine 0.73 Estim Creat Clear Calc 95.95 Est GFR (MDRD) Af Amer 129 Est GFR (MDRD) Non-Af 107 BUN/Creatinine Ratio 8.2 L Glucose 259 H Calcium 7.9 L Total Bilirubin 4.40 H Direct Bilirubin 3.44 H AST 3162 H ALT 3692 H Alkaline Phosphatase 433 H Total Protein 6.8 Albumin 3.2 Globulin 3.6 Lipase 69 L Serum , Qual Acetaminophen Acetone Level MODERATE H 02/15/19 02/15/19 15:25 18:50 WBC RBC Hgb Hct MCV MCH MCHC RDW Std Deviation RDW Coeff of Marilynn Plt Count MPV Immature Gran % (Auto) Neut % (Auto) Lymph % (Auto) [place] % (Auto) Eos % (Auto) Baso % (Auto) Absolute Neuts (auto) Absolute Lymphs (auto) Nucleated RBC % Differential Comment Diff Path Review Platelet Estimate RBC Morphology Sodium Potassium Chloride Carbon Dioxide Anion Gap BUN Creatinine Estim Creat Clear Calc Est GFR (MDRD) Af Amer Est GFR (MDRD) Non-Af BUN/Creatinine Ratio Glucose Calcium Total Bilirubin Direct Bilirubin AST ALT Alkaline Phosphatase Total Protein Albumin Globulin Lipase Serum , Qual Pending Acetaminophen Pending Acetone Level POC Glucose 02/15/19 15:36 POC Glucose 261 H Assessment/Plan All Active Problems (Last Updated 08/20/18 @ 11:18 by Adriana Mulligan) Hepatitis (Acute) Acute liver injury (Acute) Leucocytosis (Acute) The patient is a 18 year old F with no prior hepatobiliary disease came to ER with 6 days of right upper quadrant abdominal pain along with nausea and vomiting since last night. She initially took Tylenol, claims about 2 g daily for 4 days but did not take for last 2 days last she thought it might hurt her liver. She came to ER yesterday and hepatitis tests were ordered and was sent home. Patient denies fever but had chills. Has loss of appetite. Basic blood work shows AST ALT in 3000, got worse than yesterday, total bili 4.4, direct 3.4 alkaline phosphatase 433. Sodium 131, K3.4, bicarb 12, anion gap 15. She has mild leukopenia, WBC 3.1 thousand, platelet count normal. Right upper quadrant sonogram was done on 02/15 and reported as thick edematous gallbladder, 7.2 mm with positive Sam sign. No evidence of gallstone. CBD 2.8 mm. No pericholecystic fluid. Possible acalculous cholecystitis. Pancreas reported as normal size and normal echogenicity. Liver 14.3 cm with normal echogenicity. Hepatopetal color flow. No mass lesion. 1. Acute liver injury mostly secondary to acalculus cholecystitis: Patient is being admitted on regular MedSurg floor. Serum Tylenol level, serum test, HSV 1 and 2, Madhuri-Hooper virus ordered. U tox, patient has mainly direct hyperbilirubinemia even though it does not show any possible obstructive cause of jaundice. Most likely acalculus cholecystitis. Viral hepatitis panel of A, B, and C are ordered. AMA, ASMA and PEEWEE and UA ordered. There was indication that she ate uncooked pork and possible fecal oral contamination but there is no viral hepatitis E panel in our system. Anyways, managed conservatively with IV fluid normal saline, monitor electrolytes and LFT. Started on soft diet. CT of abdomen and pelvis is pending. Patient was seen by surgeon. 2. diabetes mellitus type 1 with admission for DKA in August 2018: Glucose is 259. On Lantus insulin 40 units twice daily. Accu-Chek before meals and at bedtime and cover with Humalog sliding scale. She is also on carb controlled NovoLog insulin. 3. Chronic stable asthma: On albuterol inhaler as needed. DVT prophylaxis: Low risk. Early ambulation encouraged. Code Visit Inpatient E&M: 18998 In Hosp L3
[2019-02-15 19:08] LABS: Internal QC Validated? YES +Cl - CLEAR BKGD; Pregnancy, Serum, hCG Quali. NEGATIVE Negative
[2019-02-15] MEDS: 0.9% Normal Saline 1,000 ML 125 ML IV ×2 (20:03→22:38)
[2019-02-15] MEDS: oxyCODONE 5 MG Tablet PO (20:22)
[2019-02-15 20:50] LABS: Acetaminophen (Tylenol) Level < 2.0 ug/mL (10.0-30.0)
[2019-02-15 20:58] LABS: Magnesium 1.8 mg/dL (1.6-2.6)
[2019-02-15] MEDS: Glucerna Shake 120 ML LIQUID PO (22:45)
[2019-02-15] MEDS: Insulin Lispro 100 UNIT/ML INSULN.PEN SC (22:46)
[2019-02-16 00:35] LABS: Bedside Glucose 215 mg/dL (70-110)
[2019-02-16 03:52] VITALS: BP 104/59; PULSE 107; RESP 17; TEMP 37.2; O2SAT 97
[2019-02-16] MEDS: oxyCODONE 5 MG Tablet PO ×3 (06:11→20:20)
[2019-02-16 06:53] LABS: Absolute Lymphocyte Count 0.45 X10^3/uL (0.83-4.51); Absolute Neutrophil Count 1.7 X10^3/uL (2.0-7.7); Basophil# 0.02 X10^3/uL; Basophil% 0.8 % (0-1); Hematocrit 38.4 % (37-47); Hemoglobin 13.3 g/dL (12.0-15.0); Lymphocyte # 0.45 X10^3/ul (4.0); Lymphocyte % 18.4 % (19-41); Mean Corp Hgb Conc 34.6 g/dL (32-36); Mean Corpuscular Hgb 29.5 pg (27.0-32.0); Mean Corpuscular Volume 85.1 fL (81-99); Mean Platelet Vol. 9.5 fl (6.2-12.0); Monocyte# 0.25 X10^3/uL; Monocyte% 10.2 % (0-10); NRBC Flagged by Analyzer 0 % (0-5); Neutrophil # 1.71 X10^3/uL (2.7-7.7); Neutrophil % 69.8 % (47-70); POSITIVE DIFFERENTIAL YES; POSITIVE MORPHOLOGY YES; Platelet Count 211 K/mm3 (150-450); RBC Distribution Width CV 12.9 % (11.6-14.6); RBC Distribution Width SD 40.3 fl (35.1-43.9); Red Blood Count 4.51 M/mm3 (4.2-5.4); White Blood Count 2.5 K/mm3 (4.4-11.0)
[2019-02-16 07:05] LABS: Differential Indicated SCAN CRITERIA MET
[2019-02-16 07:18] LABS: International Normalized Ratio 1.3; Prothrombin Time (Protime)PT. 16.3 SECONDS (11.7-14.9)
--- NOTE | 2019-02-16 07:20 | PN_ITS ---
Patient Problems: Active and Suspected Problems (Last Updated 08/20/18 @ 11:18 by Adriana Mulligan) Hepatitis (Acute) Acute liver injury (Acute) Subjective: Patient is a 18-year-old lady admitted with right upper quadrant abdominal pain. Found to have markedly elevated liver transaminase admitted to regular nursing floor for further management 02/16/2019 patient seen complains of significant abdominal pain as well as nausea. Liver function tests remains markedly elevated Objective: GENERAL: cooperative HEENT: Atraumatic; EYES; Anicteric, Normal Conjunctiva NECK; supple, normal thyroid, RESPIRATORY: Diminished to auscultation CARDIOVASCULAR: Regular S1 S2, GI: Right upper quadrant tenderness : No Renal angle tenderness; EXTREMITIES: No edema, no clubbing, MUSCULOSKELETAL: No Joint Tenderness; NEURO: Awake; no lateralizing signs. SKIN: No Rash PSYCH; flat affect Vitals/I&O's: Vital Signs Temp Pulse Resp BP Pulse Ox 99.0 F 107 H 17 104/59 L 97 02/16/19 03:52 02/16/19 03:52 02/16/19 03:52 02/16/19 03:52 02/16/19 03:52 Oxygen Delivery Method Room Air Weight: 49.2 kg Body Mass Index (BMI) 21.9 Finger Stick Blood Glucose 261 Intake and Output for Last 24 Hours 02/14/19 02/15/19 02/16/19 23:59 23:59 23:59 Intake Total 1728 / 1728 1351 / 1351 Output Total 0 / 0 750 / 750 Balance 1728 / 1728 601 / 601 Laboratory Results 02/15/19 15:25: WBC 3.1 L, RBC 5.42 H, Hgb 15.8 H, Hct 46.8, MCV 86.3, MCH 29.2, MCHC 33.8, RDW Std Deviation 40.3, RDW Coeff of Marilynn 12.9, Plt Count 225, MPV 9.0, Immature Gran % (Auto) 1.000 H, Neut % (Auto) 72.7 H, Lymph % (Auto) 19.5, [place] % (Auto) 6.2, Eos % (Auto) 0.0, Baso % (Auto) 0.6, Absolute Neuts (auto) 2.2, Absolute Lymphs (auto) 0.60 L, Nucleated RBC % 0, Differential Comment SEE COMMENT, Diff Path Review May foll, Platelet Estimate ADEQUATE, RBC Morphology NORM C+C 02/15/19 15:25: Sodium 131 L, Potassium 3.4 L, Chloride 104, Carbon Dioxide 12.0 L, Anion Gap 15, BUN 6 L, Creatinine 0.73, Estim Creat Clear Calc 95.95, Est GFR (MDRD) Af Amer 129, Est GFR (MDRD) Non-Af 107, BUN/Creatinine Ratio 8.2 L, Glucose 259 H, Calcium 7.9 L, Total Bilirubin 4.40 H, Direct Bilirubin 3.44 H, AST 3162 H, ALT 3692 H, Alkaline Phosphatase 433 H, Total Protein 6.8, Albumin 3.2, Globulin 3.6, Lipase 69 L 02/15/19 15:25: Acetone Level MODERATE H 02/15/19 15:25: Serum , Qual NEGATIVE 02/15/19 15:25: Magnesium 1.8 02/15/19 15:25: PEEWEE Screen Pending, RICARDO-1 Antibody Pending, SS-A/Ro IgG Antibody Pending, SS-B/La IgG Antibody Pending, Sm (Slaughter) Antibody Pending, [place] Antibody Pending, Scl-70 Scleroderma Ab Pending, Double Strand DNA Ab Pending, Centromere B Antibody Pending, Anti-Mitochondrial Ab Pending 02/15/19 15:36: POC Glucose 261 H 02/15/19 18:50: Acetaminophen < 2.0 L 02/15/19 18:50: Anti-Smooth Muscle Ab Pending 02/15/19 22:41: POC Glucose 215 H 02/16/19 05:37: PT Pending, INR Pending 02/16/19 05:37: WBC 2.5 L, RBC 4.51, Hgb 13.3, Hct 38.4, MCV 85.1, MCH 29.5, MCHC 34.6, RDW Std Deviation 40.3, RDW Coeff of Marilynn 12.9, Plt Count 211, MPV 9.5, Immature Gran % (Auto) 0.800, Neut % (Auto) 69.8, Lymph % (Auto) 18.4 L, [place] % (Auto) 10.2 H, Eos % (Auto) 0.0, Baso % (Auto) 0.8, Absolute Neuts (auto) 1.7 L, Absolute Lymphs (auto) 0.45 L, Nucleated RBC % 0 02/16/19 05:37: Sodium Pending, Potassium Pending, Chloride Pending, Carbon Dioxide Pending, Anion Gap Pending, BUN Pending, Creatinine Pending, Est GFR (MDRD) Af Amer Pending, Est GFR (MDRD) Non-Af Pending, BUN/Creatinine Ratio Pending, Glucose Pending, Calcium Pending, Total Bilirubin Pending, AST Pending, ALT Pending, Alkaline Phosphatase Pending, Total Protein Pending, Albumin Pending Current Medications Albuterol Sulfate (Ventolin Aerosols) 2.5 mg INHALATION Q4H PRN PRN Reason: SOB &/OR WHEEZING Dextrose (D50w Syringe) 0 gm IV X1 PRN; Protocol PRN Reason: Hypoglycemia Glucagon () 1 mg IM .X1 PRN PRN Reason: Hypoglycemia Sodium Chloride () 1,000 mls @ 125 mls/hr IV .Q8H REPLACED BY [facility] Last Admin: 02/15/19 22:38 Dose: 125 mls/hr Documented by: Insulin Glargine (Lantus (Bkc)) 40 units SC BID REPLACED BY [facility] Last Admin: 02/15/19 22:47 Dose: 40 u Documented by: Insulin Human Lispro (Humalog Kwikpen (Bkc)) 0 unit SC TIDCM REPLACED BY [facility] Insulin Human Lispro (Humalog Kwikpen (Bkc)) 0 unit SC ACHS REPLACED BY [facility]; Protocol Last Admin: 02/15/19 22:46 Dose: 4 u Documented by: Morphine Sulfate () 2 mg IV Q3H PRN PRN PRN Reason: Severe pain (7-10/10) Nutritional Formula (Lactose Free) (Glucerna Shake) 120 ml PO 4X/DAY REPLACED BY [facility] Last Admin: 02/15/19 22:45 Dose: 120 ml Documented by: Ondansetron HCl (Zofran) 4 mg IV Q8H PRN PRN PRN Reason: NAUSEA/VOMITING Oxycodone HCl (Oxyir) 5 mg PO Q4H PRN PRN PRN Reason: Moderate Pain (4-6/10) Last Admin: 02/16/19 06:11 Dose: 5 mg Documented by: Sodium Chloride () 10 - 40 ml IV UD PRN PRN Reason: SALINE FLUSH Medical Necessity - Tobacco Use Smoking Status: Never smoker Assessment/Plan All Active Problems (Last Updated 08/20/18 @ 11:18 by Adriana Mulligan) Hepatitis (Acute) Acute liver injury (Acute) Leucocytosis (Acute) Patient is a 18-year-old lady admitted with right upper quadrant abdominal pain. Found to have markedly elevated liver transaminase admitted to regular nursing floor for further management 1. Right upper quadrant pain. Patient was found to have markedly elevated transaminases. Gallbladder ultrasound demonstrated thickened edematous gallbladder with no evidence of gallstones. Etiology of patient's elevated transaminases as well as distended gallbladder not clear at this point there is suspicion for possible viral hepatitis acute viral hepatitis panel was sent on admission. Admitted to regular nursing floor for symptomatic control with consultation placed to Dr. Zelaya with general surgery 2. Diabetes mellitus type I patient is on long-acting insulin 3. Mild intermittent asthma stable on albuterol as needed 4. DVT prophylaxis low risk did encourage early ambulation Clinical Impression(s) from Imaging Studies Gallbladder Ultrasound 02/15/19 15:15 IMPRESSION: 1. Thickened edematous gallbladder with positive Sam's sign. There is no evidence of gallstones. Question acalculous cystitis. 2. Otherwise normal right upper quadrant ultrasound. Electronically Signed: Nav Mishra DO at 17:01 EDT Tel [phone], Service support , Abdomen/Pelvis CT 02/15/19 17:44 IMPRESSION: 1. Markedly edematous gallbladder wall without evidence of filling defect or biliary ductal dilatation. The differential this finding is wide and this most likely is secondary to some form of cholecystitis, hepatitis or hypoalbuminemia. 2. Minimal fluid in the pelvis. Question physiologic. 3. No other evidence for abdominal or pelvic abnormality. Electronically Signed: Nav Mishra DO at 18:49 EDT Tel [phone], Service support , Code Visit Inpatient E&M: 09711 Subs Hosp L3
[2019-02-16 07:29] LABS: ALB/GLOB Ratio 0.8 RATIO (0.9-2.4); AST(SGOT) 2597 U/L (15-37); Alanine Aminotransfer ALT/SGPT 3417 U/L (13-56); Albumin, Serum 2.4 g/dL (3.2-5.0); Alkaline Phosphatase 342 U/L (45-117); Anion Gap 15 (5-15); BUN 4 mg/dL (7-18); BUN/Creat Ratio 6.5 RATIO (10-20); Chloride 107 mmol/L (98-107); Creatinine, Serum 0.62 mg/dL (0.55-1.02); EST Glomerular Filtration Rate 130 mL/min (>60); Est Glom Filt Rate - Afr Amer 157 mL/min (>60); Estimated Creatinine Clearance 112.42 ml/min; Globulin 2.9 g/dL (2.2-4.2); Glucose 193 mg/dL (74-106); Potassium 3.4 mmol/L (3.5-5.1); Protein, Total 5.3 g/dL (6.4-8.2); Sodium Level 134 mmol/L (136-145)
[2019-02-16] MEDS: 0.9% Normal Saline 1,000 ML 125 ML IV ×3 (07:32→23:58)
[2019-02-16] MEDS: Insulin Lispro 100 UNIT/ML INSULN.PEN SC ×4 (08:19→22:52)
[2019-02-16 08:25] LABS: Bedside Glucose 185 mg/dL (70-110)
[2019-02-16] MEDS: Ondansetron 4 MG/2 ML Vial IV ×2 (08:26→18:44)
--- NOTE | 2019-02-16 08:41 | PCM.PN.SRG ---
Patient Problems: Active and Suspected Problems (Last Updated 08/20/18 @ 11:18 by Adriana Mulligan) Hepatitis (Acute) Acute liver injury (Acute) Subjective: Patient still complaining of right upper quadrant pain but she is now able to tolerate water with no nausea or vomiting. She says pain is very slightly improved. - Physical Exam General: Alert, Oriented x3 Neck: No JVD Lungs: Normal air movement Cardiovascular: Regular rate, Regular Rhythm Abdomen: Soft, Non-Distended, Tender - Tender in the right upper quadrant Vital Signs Temp Pulse Resp BP Pulse Ox 99.0 F 107 H 17 104/59 L 97 02/16/19 03:52 02/16/19 03:52 02/16/19 03:52 02/16/19 03:52 02/16/19 03:52 Oxygen Delivery Method Room Air Weight: 108 lb 7.479 oz Body Mass Index (BMI) 21.9 Finger Stick Blood Glucose 261 Intake and Output for Last 24 Hours 02/14/19 02/15/19 02/16/19 23:59 23:59 23:59 Intake Total 1728 / 1728 1351 / 1351 Output Total 0 / 0 750 / 750 Balance 1728 / 1728 601 / 601 Laboratory Tests Past 24 Hrs 02/15/19 02/15/19 02/15/19 15:25 15:25 15:25 WBC 3.1 L RBC 5.42 H Hgb 15.8 H Hct 46.8 MCV 86.3 MCH 29.2 MCHC 33.8 RDW Std Deviation 40.3 RDW Coeff of Marilynn 12.9 Plt Count 225 MPV 9.0 Immature Gran % (Auto) 1.000 H Neut % (Auto) 72.7 H Lymph % (Auto) 19.5 [place] % (Auto) 6.2 Eos % (Auto) 0.0 Baso % (Auto) 0.6 Absolute Neuts (auto) 2.2 Absolute Lymphs (auto) 0.60 L Nucleated RBC % 0 Differential Comment SEE COMMENT Diff Path Review May foll Platelet Estimate ADEQUATE RBC Morphology NORM C+C PT INR Sodium 131 L Potassium 3.4 L Chloride 104 Carbon Dioxide 12.0 L Anion Gap 15 BUN 6 L Creatinine 0.73 Estim Creat Clear Calc 95.95 Est GFR (MDRD) Af Amer 129 Est GFR (MDRD) Non-Af 107 BUN/Creatinine Ratio 8.2 L Glucose 259 H Calcium 7.9 L Magnesium Total Bilirubin 4.40 H Direct Bilirubin 3.44 H AST 3162 H ALT 3692 H Alkaline Phosphatase 433 H Total Protein 6.8 Albumin 3.2 Globulin 3.6 Albumin/Globulin Ratio Lipase 69 L Serum , Qual Acetaminophen Acetone Level MODERATE H PEEWEE Screen RICARDO-1 Antibody SS-A/Ro IgG Antibody SS-B/La IgG Antibody Sm (Slaughter) Antibody [employer] Antibody Scl-70 Scleroderma Ab Double Strand DNA Ab Centromere B Antibody Anti-Mitochondrial Ab Anti-Smooth Muscle Ab 02/15/19 02/15/19 02/15/19 15:25 15:25 15:25 WBC RBC Hgb Hct MCV MCH MCHC RDW Std Deviation RDW Coeff of Marilynn Plt Count MPV Immature Gran % (Auto) Neut % (Auto) Lymph % (Auto) [place] % (Auto) Eos % (Auto) Baso % (Auto) Absolute Neuts (auto) Absolute Lymphs (auto) Nucleated RBC % Differential Comment Diff Path Review Platelet Estimate RBC Morphology PT INR Sodium Potassium Chloride Carbon Dioxide Anion Gap BUN Creatinine Estim Creat Clear Calc Est GFR (MDRD) Af Amer Est GFR (MDRD) Non-Af BUN/Creatinine Ratio Glucose Calcium Magnesium 1.8 Total Bilirubin Direct Bilirubin AST ALT Alkaline Phosphatase Total Protein Albumin Globulin Albumin/Globulin Ratio Lipase Serum , Qual NEGATIVE Acetaminophen Acetone Level PEEWEE Screen Pending RICARDO-1 Antibody Pending SS-A/Ro IgG Antibody Pending SS-B/La IgG Antibody Pending Sm (Slaughter) Antibody Pending [employer] Antibody Pending Scl-70 Scleroderma Ab Pending Double Strand DNA Ab Pending Centromere B Antibody Pending Anti-Mitochondrial Ab Pending Anti-Smooth Muscle Ab 02/15/19 02/15/19 02/16/19 18:50 18:50 05:37 WBC RBC Hgb Hct MCV MCH MCHC RDW Std Deviation RDW Coeff of Marilynn Plt Count MPV Immature Gran % (Auto) Neut % (Auto) Lymph % (Auto) [place] % (Auto) Eos % (Auto) Baso % (Auto) Absolute Neuts (auto) Absolute Lymphs (auto) Nucleated RBC % Differential Comment Diff Path Review Platelet Estimate RBC Morphology PT 16.3 H INR 1.3 Sodium Potassium Chloride Carbon Dioxide Anion Gap BUN Creatinine Estim Creat Clear Calc Est GFR (MDRD) Af Amer Est GFR (MDRD) Non-Af BUN/Creatinine Ratio Glucose Calcium Magnesium Total Bilirubin Direct Bilirubin AST ALT Alkaline Phosphatase Total Protein Albumin Globulin Albumin/Globulin Ratio Lipase Serum , Qual Acetaminophen < 2.0 L Acetone Level PEEWEE Screen RICARDO-1 Antibody SS-A/Ro IgG Antibody SS-B/La IgG Antibody Sm (Slaughter) Antibody [employer] Antibody Scl-70 Scleroderma Ab Double Strand DNA Ab Centromere B Antibody Anti-Mitochondrial Ab Anti-Smooth Muscle Ab Pending 02/16/19 02/16/19 05:37 05:37 WBC 2.5 L RBC 4.51 Hgb 13.3 Hct 38.4 MCV 85.1 MCH 29.5 MCHC 34.6 RDW Std Deviation 40.3 RDW Coeff of Marilynn 12.9 Plt Count 211 MPV 9.5 Immature Gran % (Auto) 0.800 Neut % (Auto) 69.8 Lymph % (Auto) 18.4 L [place] % (Auto) 10.2 H Eos % (Auto) 0.0 Baso % (Auto) 0.8 Absolute Neuts (auto) 1.7 L Absolute Lymphs (auto) 0.45 L Nucleated RBC % 0 Differential Comment Diff Path Review Platelet Estimate RBC Morphology PT INR Sodium 134 L Potassium 3.4 L Chloride 107 Carbon Dioxide 12.0 L Anion Gap 15 BUN 4 L Creatinine 0.62 Estim Creat Clear Calc 112.42 Est GFR (MDRD) Af Amer 157 Est GFR (MDRD) Non-Af 130 BUN/Creatinine Ratio 6.5 L Glucose 193 H Calcium 7.0 L Magnesium Total Bilirubin 4.40 H Direct Bilirubin AST 2597 H ALT 3417 H Alkaline Phosphatase 342 H Total Protein 5.3 L Albumin 2.4 L Globulin 2.9 Albumin/Globulin Ratio 0.8 L Lipase Serum , Qual Acetaminophen Acetone Level PEEWEE Screen RICARDO-1 Antibody SS-A/Ro IgG Antibody SS-B/La IgG Antibody Sm (Slaughter) Antibody [employer] Antibody Scl-70 Scleroderma Ab Double Strand DNA Ab Centromere B Antibody Anti-Mitochondrial Ab Anti-Smooth Muscle Ab POC Glucose 02/16/19 02/15/19 02/15/19 08:15 22:41 15:36 POC Glucose 185 H 215 H 261 H Medical Necessity - Tobacco Use Smoking Status: Never smoker Assessment/Plan All Active Problems (Last Updated 08/20/18 @ 11:18 by Adriana Mulligan) Hepatitis (Acute) Acute liver injury (Acute) Leucocytosis (Acute) 18-year-old female with hepatitis 1. Given the patient's markedly increased AST and ALT I believe the patient has hepatitis which is leading to dysfunction of her gallbladder. The patient has a significantly thickened gallbladder wall but she has no stones in her gallbladder and her LFTs are highly elevated with no dilation of her common bile duct. I believe this gallbladder irritation is all stemming from her hepatitis. Hepatitis panel is pending. Continue supportive care at this time. White count continues to be normal. Davidson Zelaya MD Pager: [facility] [address] [place] [address] [address] [place] [address] Office:
[2019-02-16] MEDS: Glucerna Shake 120 ML LIQUID PO ×3 (09:58→22:57)
[2019-02-16 11:00] VITALS: BP 123/60; PULSE 92; RESP 16; TEMP 37; O2SAT 96
--- NOTE | 2019-02-16 11:14 | CASEMGMT ---
SARA NICOLE assessment: Face to Face with patient for initial transition planning/care coordination assessment. SARA NICOLE introduced self and role at [facility], pt voices understanding and consents to assessment at this time. Pt is lying in bed in no distress at this time. Pt is A/Ox4 at this time and answers all questions appropriately at this time. Care providers, pharmacy, and demographics verified at this time. PCP: Denny Specialists: Pt states no current specialists. Preferred [facility]acy: [facility] Insurance: [facility] Prescription Benefit: [facility] Living Will/HPOA: Pt states does not have LW/HPOA and declines info at this time. LNOK: Dar Santiago, father; Michael Miller, grandfather Living Arrangements: Pt states lives with family/fiance in home and states no concerns at home at this time. Pt states is independent with ADL's. Transportation: Pt states that she is working on getting her license but as of now, her grandfather drives and she states no transportation concerns. DME/HHC: Pt states no current DME or need for any at this time. Pt states no hx of HHC or SNF at this time. Pt states no concerns with going home at time of discharge. 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 Pt states does not smoke or drink ETOH. Pt states no further concerns/needs at this time. CM to follow for any further discharge planning/needs. Advised pt to ask for CM if any further questions/concerns/needs arise, voices understanding. Pt Goal: Home Plan: [place] SARA NICOLE
[2019-02-16 11:56] LABS: Bedside Glucose 234 mg/dL (70-110)
[2019-02-16] MEDS: proMETHazine 25 MG/ML Syringe 12.5 MG IM (12:17)
[2019-02-16 14:00] VITALS: BP 118/63; PULSE 87; RESP 18; TEMP 36.8; O2SAT 97
--- NOTE | 2019-02-16 14:06 | ED.RN ---
Pt admitted to PCU. Called results of Hep A IgM+ called to Lisbeth Eugene RN.
[2019-02-16 16:41] LABS: Bedside Glucose 270 mg/dL (70-110)
[2019-02-16 19:56] VITALS: BP 133/68; PULSE 101; RESP 21; TEMP 37.3; O2SAT 97
[2019-02-17] VITALS (7 sets, daily range): BP systolic 92–115; BP diastolic 50–75; PULSE 74–104; RESP 16–22; TEMP 36.4–39.4; O2SAT 94–976
[2019-02-17 00:01] LABS: Bedside Glucose 156 mg/dL (70-110)
[2019-02-17] MEDS: Morphine 2 MG/ML Syringe IV (02:29)
[2019-02-17] MEDS: Ibuprofen 400 MG Tablet PO (03:26)
[2019-02-17 06:08] LABS: Absolute Lymphocyte Count 0.49 X10^3/uL (0.83-4.51); Absolute Neutrophil Count 1.5 X10^3/uL (2.0-7.7); Basophil# 0.02 X10^3/uL; Basophil% 0.9 % (0-1); Hematocrit 36.8 % (37-47); Hemoglobin 12.9 g/dL (12.0-15.0); Lymphocyte # 0.49 X10^3/ul (4.0); Lymphocyte % 22.6 % (19-41); Mean Corp Hgb Conc 35.1 g/dL (32-36); Mean Corpuscular Hgb 28.8 pg (27.0-32.0); Mean Corpuscular Volume 82.1 fL (81-99); Mean Platelet Vol. 8.8 fl (6.2-12.0); Monocyte# 0.18 X10^3/uL; Monocyte% 8.3 % (0-10); NRBC Flagged by Analyzer 0 % (0-5); Neutrophil # 1.46 X10^3/uL (2.7-7.7); Neutrophil % 67.3 % (47-70); POSITIVE DIFFERENTIAL YES; POSITIVE MORPHOLOGY YES; Platelet Count 190 K/mm3 (150-450); RBC Distribution Width CV 12.5 % (11.6-14.6); RBC Distribution Width SD 37.6 fl (35.1-43.9); Red Blood Count 4.48 M/mm3 (4.2-5.4); White Blood Count 2.2 K/mm3 (4.4-11.0)
[2019-02-17 06:14] LABS: Differential Indicated SCAN CRITERIA MET
[2019-02-17 06:37] LABS: Differential Comment SCANNED
[2019-02-17 07:10] LABS: AST(SGOT) 2549 U/L (15-37); Alanine Aminotransfer ALT/SGPT 3259 U/L (13-56); Albumin, Serum 2.3 g/dL (3.2-5.0); Alkaline Phosphatase 300 U/L (45-117); Anion Gap 6 (5-15); BUN 3 mg/dL (7-18); BUN/Creat Ratio 5.5 RATIO (10-20); Bilirubin, Direct 5.22 mg/dL (0.00-0.30); Calcium,Total 7.4 mg/dL (8.5-10.1); Chloride 107 mmol/L (98-107); Creatinine, Serum 0.54 mg/dL (0.55-1.02); EST Glomerular Filtration Rate 151 mL/min (>60); Est Glom Filt Rate - Afr Amer 183 mL/min (>60); Estimated Creatinine Clearance 129.07 ml/min; Globulin 2.5 g/dL (2.2-4.2); Glucose 164 mg/dL (74-106); Magnesium 2.2 mg/dL (1.6-2.6); Potassium 2.5 mmol/L (3.5-5.1); Protein, Total 4.8 g/dL (6.4-8.2); Sodium Level 138 mmol/L (136-145)
[2019-02-17] MEDS: Insulin Lispro 100 UNIT/ML INSULN.PEN SC ×4 (07:58→22:35)
[2019-02-17 08:06] LABS: Bedside Glucose 215 mg/dL (70-110)
[2019-02-17] MEDS: 0.9% Normal Saline 1,000 ML 125 ML IV ×2 (08:28→17:01)
--- NOTE | 2019-02-17 09:01 | PCM.PN.HOSP ---
Patient Problems: Active and Suspected Problems (Last Updated 08/20/18 @ 11:18 by Adriana Mulligan) Hepatitis (Acute) Acute liver injury (Acute) Subjective: Patient seen clinical condition improving. Hepatitis panel drawn as outpatient came back positive for hepatitis A. Patient informed of results. Potassium is down to 2.5 this a.m. repletion initiated Objective: GENERAL: cooperative HEENT: Atraumatic; EYES; Icteric, Normal Conjunctiva NECK; supple, normal thyroid, RESPIRATORY: Diminished to auscultation CARDIOVASCULAR: Regular S1 S2, GI: Right upper quadrant tenderness : No Renal angle tenderness; EXTREMITIES: No edema, no clubbing, MUSCULOSKELETAL: No Joint Tenderness; NEURO: Awake; no lateralizing signs. SKIN: No Rash PSYCH; flat affect Vitals/I&O's: Vital Signs Temp Pulse Resp BP Pulse Ox 97.6 F L 74 16 108/54 L 100 02/17/19 08:37 02/17/19 08:37 02/17/19 08:37 02/17/19 08:37 02/17/19 08:37 Oxygen Delivery Method Room Air Weight: 49.2 kg Body Mass Index (BMI) 21.9 Finger Stick Blood Glucose 261 Intake and Output for Last 24 Hours 02/15/19 02/16/19 02/17/19 23:59 23:59 23:59 Intake Total 1728 / 1728 5103 / 5103 1693 / 1693 Output Total 0 / 0 2950 / 2950 700 / 700 Balance 1728 / 1728 2153 / 2153 993 / 993 Laboratory Results 02/16/19 11:42: POC Glucose 234 H 02/16/19 16:36: POC Glucose 270 H 02/16/19 22:48: POC Glucose 156 H 02/17/19 05:40: WBC 2.2 L, RBC 4.48, Hgb 12.9, Hct 36.8 L, MCV 82.1, MCH 28.8, MCHC 35.1, RDW Std Deviation 37.6, RDW Coeff of Marilynn 12.5, Plt Count 190, MPV 8.8, Immature Gran % (Auto) 0.900, Neut % (Auto) 67.3, Lymph % (Auto) 22.6, [place] % (Auto) 8.3, Eos % (Auto) 0.0, Baso % (Auto) 0.9, Absolute Neuts (auto) 1.5 L, Absolute Lymphs (auto) 0.49 L, Nucleated RBC % 0, Differential Comment SCANNED, Diff Path Review November foll 02/17/19 05:40: Sodium 138, Potassium 2.5 L*, Chloride 107, Carbon Dioxide 25.0, Anion Gap 6, BUN 3 L, Creatinine 0.54 L, Estim Creat Clear Calc 129.07, Est GFR (MDRD) Af Amer 183, Est GFR (MDRD) Non-Af 151, BUN/Creatinine Ratio 5.5 L, Glucose 164 H, Calcium 7.4 L, Magnesium 2.2, Total Bilirubin 6.10 H, Direct Bilirubin 5.22 H, AST 2549 H, ALT 3259 H, Alkaline Phosphatase 300 H, Total Protein 4.8 L, Albumin 2.3 L, Globulin 2.5 02/17/19 07:53: POC Glucose 215 H Current Medications Albuterol Sulfate (Ventolin Aerosols) 2.5 mg INHALATION Q4H PRN PRN Reason: SOB &/OR WHEEZING Dextrose (D50w Syringe) 0 gm IV X1 PRN; Protocol PRN Reason: Hypoglycemia Glucagon () 1 mg IM .X1 PRN PRN Reason: Hypoglycemia Sodium Chloride () 1,000 mls @ 125 mls/hr IV .Q8H [facility] Last Admin: 02/17/19 08:28 Dose: 125 mls/hr Documented by: Potassium Chloride 10 meq/ N/A 100 mls @ 100 mls/hr IV BOLUS Q1H [facility] Stop: 02/17/19 12:14 Last Admin: 02/17/19 08:28 Dose: 100 mls/hr Documented by: Ibuprofen (Motrin) 400 mg PO Q6H PRN PRN PRN Reason: MILD PAIN (-09/27) Last Admin: 02/17/19 03:26 Dose: 400 mg Documented by: Insulin Glargine (Lantus (Bk)) 40 units SC BID [facility] Last Admin: 02/16/19 22:53 Dose: 40 u Documented by: Insulin Human Lispro (Humalog Kwikpen (Bk)) 0 unit SC TIDCM [facility] Last Admin: 02/17/19 07:57 Dose: Not Given Documented by: Insulin Human Lispro (Humalog Kwikpen (Bk)) 0 unit SC ACHS [facility]; Protocol Last Admin: 02/17/19 07:58 Dose: 4 u Documented by: Morphine Sulfate () 2 mg IV Q3H PRN PRN PRN Reason: Severe pain (7-10/10) Last Admin: 02/17/19 02:29 Dose: 2 mg Documented by: Nutritional Formula (Lactose Free) (Glucerna Shake) 120 ml PO 4X/DAY [facility] Last Admin: 02/16/19 22:57 Dose: 120 ml Documented by: Ondansetron HCl (Zofran) 4 mg IV Q8H PRN PRN PRN Reason: NAUSEA/VOMITING Last Admin: 02/16/19 18:44 Dose: 4 mg Documented by: Oxycodone HCl (Oxyir) 5 mg PO Q4H PRN PRN PRN Reason: Moderate Pain (4-6/10) Last Admin: 02/16/19 20:20 Dose: 5 mg Documented by: Potassium [facility]Dur[facility] Admin: 02/16/19 18:46 Dose: 20 meq Documented by: Promethazine HCl (Phenergan) 12.5 mg IM Q4H PRN PRN PRN Reason: NAUSEA/VOMITING Last Admin: 02/16/19 12:17 Dose: 12.5 mg Documented by: Sodium Chloride () 10 - 40 ml IV UD PRN PRN Reason: SALINE FLUSH Medical Necessity - Tobacco Use Smoking Status: Never smoker Assessment/Plan All Active Problems (Last Updated 08/20/18 @ 11:18 by Adriana Mulligan) Hepatitis (Acute) Acute liver injury (Acute) Leucocytosis (Acute) Patient is a 18-year-old lady admitted with right upper quadrant abdominal pain. Found to have markedly elevated liver transaminase admitted to regular nursing floor for further management 1. Acute hepatitis A. Patient presented with generalized malaise with right upper quadrant pain. Patient was found to have markedly elevated transaminases Gallbladder ultrasound demonstrated thickened edematous gallbladder with no evidence of gallstones. Admitted to regular nursing floor for symptomatic control with consultation placed to Dr. Zelaya with general surgery 2. Diabetes mellitus type I patient is on long-acting insulin 3. Mild intermittent asthma stable on albuterol as needed 4. DVT prophylaxis low risk did encourage early ambulation 5. Hypokalemia corrected per protocol Code Visit Inpatient E&M: 13136 Subs Hosp L2
--- NOTE | 2019-02-17 09:11 | PN.SURG_ITS ---
Patient Problems: Active and Suspected Problems (Last Updated 08/20/18 @ 11:18 by Adriana Mulligan) Hepatitis (Acute) Acute liver injury (Acute) Subjective: Patient reports she has been tolerating some diet. - Physical Exam General: Alert, Cooperative Lungs: Normal air movement Cardiovascular: Regular rate, Regular Rhythm Abdomen: Soft, Non-Distended, Tender - Right upper quadrant tenderness Vital Signs Temp Pulse Resp BP Pulse Ox 97.6 F L 74 16 108/54 L 100 02/17/19 08:37 02/17/19 08:37 02/17/19 08:37 02/17/19 08:37 02/17/19 08:37 Oxygen Delivery Method Room Air Weight: 108 lb 7.479 oz Body Mass Index (BMI) 21.9 Finger Stick Blood Glucose 261 Intake and Output for Last 24 Hours 02/15/19 02/16/19 02/17/19 23:59 23:59 23:59 Intake Total 1728 / 1728 5103 / 5103 1693 / 1693 Output Total 0 / 0 2950 / 2950 700 / 700 Balance 1728 / 1728 2153 / 2153 993 / 993 Laboratory Tests Past 24 Hrs 02/17/19 02/17/19 05:40 05:40 WBC 2.2 L RBC 4.48 Hgb 12.9 Hct 36.8 L MCV 82.1 MCH 28.8 MCHC 35.1 RDW Std Deviation 37.6 RDW Coeff of Marilynn 12.5 Plt Count 190 MPV 8.8 Immature Gran % (Auto) 0.900 Neut % (Auto) 67.3 Lymph % (Auto) 22.6 [place] % (Auto) 8.3 Eos % (Auto) 0.0 Baso % (Auto) 0.9 Absolute Neuts (auto) 1.5 L Absolute Lymphs (auto) 0.49 L Nucleated RBC % 0 Differential Comment SCANNED Diff Path Review May foll Sodium 138 Potassium 2.5 L* Chloride 107 Carbon Dioxide 25.0 Anion Gap 6 BUN 3 L Creatinine 0.54 L Estim Creat Clear Calc 129.07 Est GFR (MDRD) Af Amer 183 Est GFR (MDRD) Non-Af 151 BUN/Creatinine Ratio 5.5 L Glucose 164 H Calcium 7.4 L Magnesium 2.2 Total Bilirubin 6.10 H Direct Bilirubin 5.22 H AST 2549 H ALT 3259 H Alkaline Phosphatase 300 H Total Protein 4.8 L Albumin 2.3 L Globulin 2.5 POC Glucose 02/17/19 02/16/19 02/16/19 07:53 22:48 16:36 POC Glucose 215 H 156 H 270 H 02/16/19 11:42 POC Glucose 234 H Medical Necessity - Tobacco Use Smoking Status: Never smoker Assessment/Plan All Active Problems (Last Updated 08/20/18 @ 11:18 by Adriana Mulligan) Hepatitis (Acute) Acute liver injury (Acute) Leucocytosis (Acute) 18-year-old female with hepatitis A 1. Patient's LFTs are elevated due to hepatitis A. Her gallbladder thickening is likely due to this and will resolve once her hepatitis resolves. Continue supportive care. No surgical treatment planned for now. Diet as tolerated. Davidson Zelaya MD Pager: [facility] [address] [place] [address], [address] [place] [address] Office:
[2019-02-17] MEDS: Glucerna Shake 120 ML LIQUID PO ×3 (09:42→17:03)
[2019-02-17 12:06] LABS: Bedside Glucose 241 mg/dL (70-110)
[2019-02-17 15:39] LABS: Pathologist Review Reviewed
[2019-02-17 15:48] LABS: Pathologist Review Reviewed
[2019-02-17] MEDS: oxyCODONE 5 MG Tablet PO (17:02)
[2019-02-17] MEDS: Ondansetron 4 MG/2 ML Vial IV (17:03)
[2019-02-17 17:12] LABS: Potassium 3.1 mmol/L (3.5-5.1)
[2019-02-17 17:20] LABS: Bedside Glucose 258 mg/dL (70-110)
[2019-02-17 22:55] LABS: Bedside Glucose 228 mg/dL (70-110)
[2019-02-18] MEDS: 0.9% Normal Saline 1,000 ML 125 ML IV ×2 (00:47→08:15)
[2019-02-18 04:27] VITALS: BP 116/66; PULSE 110; RESP 18; TEMP 38.1; O2SAT 95
[2019-02-18] MEDS: 0.9% NaCl Peripheral Flush Adult/Peds IV (04:28)
[2019-02-18] MEDS: Ondansetron 4 MG/2 ML Vial IV (04:28)
[2019-02-18] MEDS: oxyCODONE 5 MG Tablet PO (04:40)
[2019-02-18 06:43] LABS: Mean Corp Hgb Conc 35.1 g/dL (32-36); Mean Corpuscular Hgb 29.2 pg (27.0-32.0); Mean Corpuscular Volume 83.1 fL (81-99); Mean Platelet Vol. 9.1 fl (6.2-12.0); POSITIVE MORPHOLOGY YES; Platelet Count 213 K/mm3 (150-450); RBC Distribution Width SD 39.2 fl (35.1-43.9); Red Blood Count 4.45 M/mm3 (4.2-5.4); White Blood Count 3.6 K/mm3 (4.4-11.0)
[2019-02-18 07:29] LABS: AST(SGOT) 2302 U/L (15-37); Alanine Aminotransfer ALT/SGPT 3073 U/L (13-56); Albumin, Serum 2.1 g/dL (3.2-5.0); Alkaline Phosphatase 276 U/L (45-117); Anion Gap 6 (5-15); BUN 4 mg/dL (7-18); BUN/Creat Ratio 10.7 RATIO (10-20); Bilirubin, Direct 6.45 mg/dL (0.00-0.30); Calcium,Total 7.1 mg/dL (8.5-10.1); Chloride 105 mmol/L (98-107); Creatinine, Serum 0.37 mg/dL (0.55-1.02); EST Glomerular Filtration Rate 232 mL/min (>60); Est Glom Filt Rate - Afr Amer 280 mL/min (>60); Estimated Creatinine Clearance 188.38 ml/min; Globulin 2.6 g/dL (2.2-4.2); Glucose 167 mg/dL (74-106); Potassium 2.7 mmol/L (3.5-5.1); Protein, Total 4.7 g/dL (6.4-8.2); Sodium Level 136 mmol/L (136-145)
[2019-02-18] MEDS: Insulin Lispro 100 UNIT/ML INSULN.PEN SC ×3 (08:13→16:56)
[2019-02-18] MEDS: Glucerna Shake 120 ML LIQUID PO (08:14)
[2019-02-18 08:26] LABS: Bedside Glucose 147 mg/dL (70-110)
[2019-02-18 09:28] LABS: Scan Smear per Review Criteria MANUAL DIFF
[2019-02-18 09:29] LABS: Differential Indicated MANUAL DIFF; Lymphocyte 22 % (19-41); Monocyte 8 % (0-10); Neutrophil-Band 21 % (0-5); Neutrophil-Segmented 49 % (47-70); Total Cells Counted 100 (MANUAL DIFF)
[2019-02-18 09:31] LABS: Absolute Lymphocyte Count 0.79 X10^3/uL (0.83-4.51); Absolute Neutrophil Count 2.5 X10^3/uL (2.0-7.7); Lymphocyte # 0.79 X10^3/ul (4.0); Neutrophil # 2.52 X10^3/uL (2.7-7.7)
[2019-02-18 09:32] LABS: Atypical Lymphocyte RARE %; Differential Comment SCANNED; Platelet Estimate ADEQUATE (ADEQ); Reactive Lymphocyte RARE
[2019-02-18 09:57] VITALS: BP 114/72; PULSE 86; RESP 16; TEMP 37.5; O2SAT 96
[2019-02-18] MEDS: Magnesium Citrate 300 ML PO (12:08)
[2019-02-18 12:11] LABS: Bedside Glucose 207 mg/dL (70-110)
[2019-02-18 15:03] LABS: ANTINUCLEAR ANTIBODIES DIRECT Negative (Negative); Anti-Mitochondrial AB <20.0 Units (0.0-20.0)
[2019-02-18 15:19] LABS: Anti-Smooth Muscle ABS 12 Units (0-19)
[2019-02-18 15:26] LABS: Pathologist Review Reviewed
[2019-02-18 15:33] LABS: Potassium 3.6 mmol/L (3.5-5.1)
--- NOTE | 2019-02-18 15:35 | DCINST_ITS ---
- Discharge Diagnoses Current Active Problems: Current Active and Chronic Problems (Last Updated 08/20/18 @ 11:18 by Adriana Mulligan) Hepatitis (Acute) Acute liver injury (Acute) You will use the following diet at home:: Calorie/Carbohydrate Controlled (specify 1200, 1400, etc) - 1800 Your food should be the consistency of: Regular Discharge Activity: Return to Normal Activity Allergies/Adverse Reactions: Allergies Penicillins Allergy (Verified 02/15/19 14:43) Unknown Sulfa (Sulfonamide Antibiotics) Allergy (Verified 02/15/19 14:43) Unknown prednisone Adverse Reaction (Verified 02/15/19 14:43) Vomiting bee stings Allergy (Severe, Uncoded 02/15/19 19:48) Anaphylaxis Medications to take at Discharge Albuterol Sulfate [Ventolin Hfa] 2 puff INHALATION Q4H PRN PRN 08/25/18 Cetirizine HCl 10 mg PO QHS 08/25/18 Insulin Aspart [Novolog Flexpen] See Rx Instructions SC TIDCM 08/25/18 Insulin Glargine,Hum.rec.anlog [Basaglar Kwikpen U-100] 40 unit SC BID 08/25/18 Potassium Chloride [K-Dur] 20 meq PO BIDCM #30 tab 02/18/19 The following prescriptions were given: Potassium Chloride [K-Dur] 20 meq PO BIDCM #30 tab Transmission Status: Pending to [facility] [address] Primary Care Physician: Martin Baldwin MD [Primary Care Provider] - Please follow up with your Primary Care Physician in: in 5-7 days Test Results: Test results from this visit will be discussed in further detail at your follow- up appointment, if applicable. Proposed Discharge Date: 02/18/19
--- NOTE | 2019-02-18 15:37 | DS.PCM_ITS ---
Discharge Date and Diagnosis - Problem List Patient Problems: Active and Suspected Problems (Last Updated 08/20/18 @ 11:18 by Adriana Mulligan) Acute hepatitis A virus infection (Acute) Hepatitis (Acute) Acute liver injury (Acute) Date of Admission: 02/15/19 Date of Discharge: 02/18/19 - Primary Discharge Diagnosis Active and Suspected Problems (Last Updated 08/20/18 @ 11:18 by Adriana Mulligan) Hepatitis (Acute) Acute liver injury (Acute) - Secondary Discharge Diagnosis Chronic Problems (Last Updated 08/20/18 @ 11:18 by Adriana Mulligan) Asthma (Chronic) Type I diabetes mellitus (Chronic) Hospital Course and Treatment Operations: None Summary of Care Provided: Patient is a 18-year-old lady admitted with right upper quadrant abdominal pain. Found to have markedly elevated liver transaminase admitted to regular nursing floor for further management 1. Acute hepatitis A. Patient presented with generalized malaise with right upper quadrant pain. Patient was found to have markedly elevated transaminases Gallbladder ultrasound demonstrated thickened edematous gallbladder with no evidence of gallstones. Admitted to regular nursing floor for symptomatic control with consultation placed to Dr. Zelaya with general surgery. Patient was discharged home following clinical stabilization 2. Diabetes mellitus type I patient is on long-acting insulin 3. Mild intermittent asthma stable on albuterol as needed 4. DVT prophylaxis low risk did encourage early ambulation 5. Hypokalemia corrected per protocol: Prescription was written on discharge the patient Patient Problems: Active and Suspected Problems (Last Updated 08/20/18 @ 11:18 by Adriana Mulligan) Acute hepatitis A virus infection (Acute) Hepatitis (Acute) Acute liver injury (Acute) Objective: GENERAL: cooperative HEENT: Atraumatic; EYES; jaundiced NECK; supple, normal thyroid, RESPIRATORY: Diminished to auscultation CARDIOVASCULAR: Regular S1 S2, GI: soft, non-tender, : No Renal angle tenderness; PSYCH; Normal affect - Physical Exam Vital Signs Temp Pulse Resp BP Pulse Ox 99.5 F H 86 16 114/72 96 02/18/19 09:57 02/18/19 09:57 02/18/19 09:57 02/18/19 09:57 02/18/19 09:57 Oxygen Delivery Method Room Air Weight: 49.2 kg Body Mass Index (BMI) 21.9 Finger Stick Blood Glucose 261 Intake and Output for Last 24 Hours 02/16/19 02/17/19 02/18/19 23:59 23:59 23:59 Intake Total 5103 / 5103 5610 / 5610 1458 / 1458 Output Total 2950 / 2950 3700 / 3700 1500 / 1500 Balance 2153 / 2153 1910 / 1910 -42 / -42 Laboratory Tests Past 24 Hrs 02/15/19 02/15/19 02/15/19 15:25 15:25 18:50 WBC RBC Hgb Hct MCV MCH MCHC RDW Std Deviation RDW Coeff of Marilynn Plt Count MPV Immature Gran % (Auto) Neut % (Auto) Lymph % (Auto) [place] % (Auto) Eos % (Auto) Baso % (Auto) Absolute Neuts (auto) Absolute Lymphs (auto) Total Counted Neutrophils % (Manual) Band Neutrophils % Lymphocytes % (Manual) Monocytes % (Manual) Nucleated RBC % Differential Comment Diff Path Review Reviewed Atypical Lymphocytes Reactive Lymphocytes Platelet Estimate Sodium Potassium Chloride Carbon Dioxide Anion Gap BUN Creatinine Estim Creat Clear Calc Est GFR (MDRD) Af Amer Est GFR (MDRD) Non-Af BUN/Creatinine Ratio Glucose Calcium Magnesium Total Bilirubin Direct Bilirubin AST ALT Alkaline Phosphatase Total Protein Albumin Globulin PEEWEE Screen Negative Anti-Mitochondrial Ab <20.0 Anti-Smooth Muscle Ab 12 02/16/19 02/17/19 02/17/19 05:37 05:40 16:20 WBC RBC Hgb Hct MCV MCH MCHC RDW Std Deviation RDW Coeff of Marilynn Plt Count MPV Immature Gran % (Auto) Neut % (Auto) Lymph % (Auto) [place] % (Auto) Eos % (Auto) Baso % (Auto) Absolute Neuts (auto) Absolute Lymphs (auto) Total Counted Neutrophils % (Manual) Band Neutrophils % Lymphocytes % (Manual) Monocytes % (Manual) Nucleated RBC % Differential Comment Diff Path Review Reviewed Reviewed Atypical Lymphocytes Reactive Lymphocytes Platelet Estimate Sodium Potassium 3.1 L Chloride Carbon Dioxide Anion Gap BUN Creatinine Estim Creat Clear Calc Est GFR (MDRD) Af Amer Est GFR (MDRD) Non-Af BUN/Creatinine Ratio Glucose Calcium Magnesium Total Bilirubin Direct Bilirubin AST ALT Alkaline Phosphatase Total Protein Albumin Globulin PEEWEE Screen Anti-Mitochondrial Ab Anti-Smooth Muscle Ab 02/18/19 02/18/19 02/18/19 06:20 06:20 06:20 WBC 3.6 L RBC 4.45 Hgb 13.0 Hct 37.0 MCV 83.1 MCH 29.2 MCHC 35.1 RDW Std Deviation 39.2 RDW Coeff of Marilynn 13.0 Plt Count 213 MPV 9.1 Immature Gran % (Auto) CURATOR OF COLLECTIONS Neut % (Auto) CURATOR OF COLLECTIONS Lymph % (Auto) CURATOR OF COLLECTIONS [place] % (Auto) CURATOR OF COLLECTIONS Eos % (Auto) CURATOR OF COLLECTIONS Baso % (Auto) CURATOR OF COLLECTIONS Absolute Neuts (auto) 2.5 Absolute Lymphs (auto) 0.79 L Total Counted 100 Neutrophils % (Manual) 49 Band Neutrophils % 21 H Lymphocytes % (Manual) 22 Monocytes % (Manual) 8 Nucleated RBC % CURATOR OF COLLECTIONS Differential Comment SCANNED Diff Path Review Atypical Lymphocytes RARE Reactive Lymphocytes RARE Platelet Estimate ADEQUATE Sodium 136 Potassium 2.7 L* Chloride 105 Carbon Dioxide 25.0 Anion Gap 6 BUN 4 L Creatinine 0.37 L Estim Creat Clear Calc 188.38 Est GFR (MDRD) Af Amer 280 Est GFR (MDRD) Non-Af 232 BUN/Creatinine Ratio 10.7 Glucose 167 H Calcium 7.1 L Magnesium 2.0 Total Bilirubin 7.50 H Direct Bilirubin 6.45 H AST 2302 H ALT 3073 H Alkaline Phosphatase 276 H Total Protein 4.7 L Albumin 2.1 L Globulin 2.6 PEEWEE Screen Anti-Mitochondrial Ab Anti-Smooth Muscle Ab 02/18/19 15:00 WBC RBC Hgb Hct MCV MCH MCHC RDW Std Deviation RDW Coeff of Marilynn Plt Count MPV Immature Gran % (Auto) Neut % (Auto) Lymph % (Auto) [place] % (Auto) Eos % (Auto) Baso % (Auto) Absolute Neuts (auto) Absolute Lymphs (auto) Total Counted Neutrophils % (Manual) Band Neutrophils % Lymphocytes % (Manual) Monocytes % (Manual) Nucleated RBC % Differential Comment Diff Path Review Atypical Lymphocytes Reactive Lymphocytes Platelet Estimate Sodium Potassium 3.6 Chloride Carbon Dioxide Anion Gap BUN Creatinine Estim Creat Clear Calc Est GFR (MDRD) Af Amer Est GFR (MDRD) Non-Af BUN/Creatinine Ratio Glucose Calcium Magnesium Total Bilirubin Direct Bilirubin AST ALT Alkaline Phosphatase Total Protein Albumin Globulin PEEWEE Screen Anti-Mitochondrial Ab Anti-Smooth Muscle Ab POC Glucose 02/18/19 02/18/19 02/17/19 12:02 08:10 22:31 POC Glucose 207 H 147 H 228 H 02/17/19 16:50 POC Glucose 258 H Discharge Diet: 1800 Calorie Control Diet Discharge Activity: Return to Normal Activity Home Medications: Medications to take at Discharge Albuterol Sulfate [Ventolin Hfa] 2 puff INHALATION Q4H PRN PRN 08/25/18 Cetirizine HCl 10 mg PO QHS 08/25/18 Insulin Aspart [Novolog Flexpen] See Rx Instructions SC TIDCM 08/25/18 Insulin Glargine,Hum.rec.anlog [Basaglar Kwikpen U-100] 40 unit SC BID 08/25/18 Potassium Chloride [K-Dur] 20 meq PO BIDCM #30 tab 02/18/19 Following Prescrptions Were Given to Patient: Potassium Chloride [K-Dur] 20 meq PO BIDCM #30 tab Transmission Status: Pending to [address] Primary Care Physician: Martin Baldwin MD [Primary Care Provider] - Please follow up with your Primary Care Physician in: in 5-7 days Disposition: Home Minutes spent on discharge:: 50 Patient Condition:: Stable Medical Necessity - Tobacco Use Smoking Status: Never smoker Meaningful Use Info Meaningful Use Diagnoses (Choose all that apply): None applicable Code Visit Inpatient E&M: 66405 Disch Hosp
[2019-02-18 15:45] VITALS: BP 100/66; PULSE 90; RESP 16; TEMP 37.3; O2SAT 96
[2019-02-18 17:06] LABS: Bedside Glucose 245 mg/dL (70-110)
--- NOTE | 2019-02-19 13:53 | CASEMGMT ---
SARA NICOLE DC PHONE CALL DC DATE: 02/19/19 DC Disposition: Home Diagnosis on Discharge: Hepatitis, Acute liver injury LACE/STRATA: 14/4 Intro role of CM to patient via phone. Pt states she is doing well, but is having pain. discussed prescriptions and if pt has concerns re: pain medicaiton, to call PCP, let nurse know she has been in the hospital and make appt to be seen. Pt is agreeable to this. No other questions re: instructions, f/u or prescriptions. No care improvement suggestions were given. Tonny MARTINEZN RN ACM
== END 2019-02-18 18:10 | disposition home or self-care (01) ==
LOC: ED 15:31 → PCU 18:55
PROVIDERS: Surgery; Admitting Provider Internal Medicine; Emergency Provider Emergency Medicine; Family Provider Pediatrics; PCP Pediatrics; Referring Provider Internal Medicine; Visit Provider Internal Medicine
DX: B15.9 Hepatitis A without hepatic coma (principal); J45.20 Mild intermittent asthma, uncomplicated; E10.9 Type 1 diabetes mellitus without complications; E87.6 Hypokalemia; Z79.4 Long term (current) use of insulin; Z79.899 Other long term (current) drug therapy; R10.9 Unspecified abdominal pain; R11.0 Nausea; M54.5 Low back pain
CPT/HCPCS: 36415; 74177; 76705; 80048; 80053; 80074; 80076; 80329; 81001; 82009; 82962; 83516; 83690; 83735; 84132; 84703; 85025; 85610; 86038; 86225; 86235; 96374; 96375; 97802; 99284; 99285; J7030; Q9967; A4216; G0480; J2405

== ENCOUNTER 2019-05-12 13:41 | Emergency (ER) | payer MEDICAID, SELFPAY ==
[2019-05-12 13:41] VITALS: BMI 22.0
[2019-05-12 13:44] VITALS: BP 124/70; PULSE 130; RESP 18; TEMP 36.6; O2SAT 97; BMI 24.6
[2019-05-12 14:06] LABS: Bedside Glucose 317 mg/dL (70-110)
--- NOTE | 2019-05-12 14:11 | EKG12_ITS ---
Test Reason : DKA Blood Pressure : / mmHG Vent. Rate : 107 BPM Atrial Rate : 107 BPM P-R Int : 120 ms QRS Dur : 084 ms QT Int : 320 ms P-R-T Axes : 066 071 014 degrees QTc Int : 427 ms Sinus tachycardia Possible Left atrial enlargement Nonspecific T wave abnormality Abnormal ECG Confirmed by FRANCHESCA AGOSTO, ALIYAH ([id number]), news copy editor ROSHAN TRUJILLO ([id number]) on 05/14/2019 1:17:54 PM Referred By: NISHA Confirmed By:LOUISE SORENSEN MD
--- NOTE | 2019-05-12 14:11 | RAD_ITS ---
STUDY: X-RAY CHEST REASON FOR EXAM: Female, 19 years old. Chest pain. Hyperglycemia. TECHNIQUE: PA and lateral views of the chest. COMPARISON: Comparison is made with prior examination in August 08, 2018. FINDINGS: The lungs are clear and expanded. There is no demonstrated pleural abnormality. Normal size heart. Normal mediastinum and kaleigh. Normal visualized pulmonary arteries. Normal visualized aortic arch and descending thoracic aorta. Normal visualized thoracic spine. Normal visualized ribs, clavicles, and shoulders. There is no demonstrated abnormality of the visualized soft tissue structures of the upper abdomen. RAD/Chest PA and Lateral IMPRESSION: Normal x-ray examination of the chest. Electronically Signed: Akil Deutsch, at 14:32 EDT , Service support ,
[2019-05-12 14:31] LABS: Absolute Lymphocyte Count 1.44 X10^3/uL (0.83-4.51); Absolute Neutrophil Count 5.4 X10^3/uL (2.0-7.7); Basophil# 0.03 X10^3/uL; Basophil% 0.4 % (0-1); Eosinophil# 0.04 X10^3/uL; Eosinophils% 0.6 % (0-5); Hematocrit 45.2 % (37-47); Hemoglobin 15.3 g/dL (12.0-15.0); Lymphocyte # 1.44 X10^3/ul (4.0); Lymphocyte % 20.3 % (19-41); Mean Corp Hgb Conc 33.8 g/dL (32-36); Mean Corpuscular Hgb 28.8 pg (27.0-32.0); Mean Corpuscular Volume 85.1 fL (81-99); Mean Platelet Vol. 9.2 fl (6.2-12.0); Monocyte# 0.21 X10^3/uL; NRBC Flagged by Analyzer 0 % (0-5); Neutrophil # 5.38 X10^3/uL (2.7-7.7); Neutrophil % 75.6 % (47-70); Platelet Count 304 K/mm3 (150-450); RBC Distribution Width CV 11.7 % (11.6-14.6); RBC Distribution Width SD 35.7 fl (35.1-43.9); Red Blood Count 5.31 M/mm3 (4.2-5.4); White Blood Count 7.1 K/mm3 (4.4-11.0)
[2019-05-12 14:48] LABS: Anion Gap 11 (5-15); BUN 18 mg/dL (7-18); Calcium,Total 9.1 mg/dL (8.5-10.1); Chloride 99 mmol/L (98-107); Creatinine, Serum 0.67 mg/dL (0.55-1.02); EST Glomerular Filtration Rate 119 mL/min (>60); Est Glom Filt Rate - Afr Amer 144 mL/min (>60); Estimated Creatinine Clearance 116.03 ml/min; Glucose 284 mg/dL (74-106); Potassium 3.4 mmol/L (3.5-5.1); Sodium Level 130 mmol/L (136-145)
--- NOTE | 2019-05-12 14:49 | ED.RN ---
pt post triage verbalizes generally not feeling well of having sob and cp. pt then taken into second triage room and ekg completed.
[2019-05-12 14:50] VITALS: O2SAT 98
[2019-05-12 15:05] LABS: Bedside Glucose 337 mg/dL (70-110)
[2019-05-12] MEDS: 0.9% Normal Saline 1,000 ML 999 ML IV ×2 (15:15→16:17)
--- NOTE | 2019-05-12 15:55 | ED.VISSUMM ---
- ER Visit Summary Date of Service: 05/12/19 Chief Complaint: Concern for DKA History of Present Illness: The patient is a 19 F who is a type I diabetic. She tells me for the past couple weeks her blood sugars have been remaining elevated in the 2-300 range. Last night they were over 500. Today she is unsure if she took her long-acting insulin and around noon today she took 22 units of insulin lispro. She feels lightheaded. She feels dehydrated. She notes nausea polyuria and palpitations. She is unsure of who her doctors are but states that she sees one at the [facility] here and another one in [place] that handles her Diabetes Physical Examination: Afebrile blood pressure 124/70 heart rate of 130 respirations are 18 pulse ox 90% room air Gen: Well-nourished well-developed Head: Normocephalic atraumatic Eyes: Perrl EOMI ENT: TMs clear no rhinorrhea moist mucous membranes Neck: Supple no lymphadenopathy no JVD nontender CVS: Regular rate tachycardic rhythm no murmurs normal S1-S2 Respiratory: No distress clear to auscultation bilaterally chest nontender Abdomen: Soft nontender nondistended normal bowel sounds no masses Back: Nontender Extremity: Nontender no edema Skin: Normal color no rash Neuro: alert orientated ?3 CN II-XII intact normal strength sensation Psych: Normal affect normal mood Test Results: EKG shows a sinus tachycardia at a rate of 107. No concerning features of ACS or ectopy. CBC hemoglobin 15.3. Chemistry showed a sodium 130 potassium 3.4. CO2 of 20 blood glucose 284. Anion gap was not elevated. troponin negative. Chest x-ray negative. Emergency Department Course and Treatment: Patient received several liters of IV fluids. Her blood sugar decreased to 161. Repeat acetone was negative. Her gap is now 7 and CO2 of 21. She overall feels better and is tolerating p.o. Impression: 1. Diabetic ketoacidosis This note was generated with [employer] dictation software. It may contain incorrect words, spelling, and punctuation that were not noted in review of the chart prior to signing ED Disposition - Plan for ED Patient: Disposition: Home or Assisted Living Instructions: ED Diabetic Hyperglycemia Additional Instructions: Please call your deckhand tomorrow. Monitor your blood sugars very closely.
[2019-05-12 15:59] VITALS: BP 109/73; PULSE 101; RESP 18; O2SAT 99
[2019-05-12 16:24] LABS: AST(SGOT) 38 U/L (15-37); Alanine Aminotransfer ALT/SGPT 80 U/L (13-56); Albumin, Serum 4.3 g/dL (3.2-5.0); Alkaline Phosphatase 95 U/L (45-117); Bilirubin, Direct 0.21 mg/dL (0.00-0.30); Globulin 4.3 g/dL (2.2-4.2); Protein, Total 8.6 g/dL (6.4-8.2)
[2019-05-12 17:11] VITALS: BP 113/78; PULSE 92; RESP 15; O2SAT 100
[2019-05-12 17:18] LABS: Bacteria 0 SEEN /hpf (None Seen); Mucous, Urine 0 SEEN /hpf (<or=2+)
[2019-05-12 17:21] LABS: Bedside Glucose 227 mg/dL (70-110)
[2019-05-12 17:23] LABS: Color, Urine Yellow (Yellow); Glucose, Dipstick 1000 mg/dl (Normal); Leukocyte Esterase-Dipstick 25 /ul (Negative); Nitrite-Dipstick Negative (Negative); Occult Blood-Urine Negative /ul (Negative); Protein-Dipstick 15 mg/dl (Negative); Urine Bilirubin Dipstick Negative (Negative); Urine Clarity Clear (Clear); Urine Urobilinogen Normal (Normal)
[2019-05-12 17:35] LABS: Internal QC Validated? YES +Cl - CLEAR BKGD; Pregnancy, Urine Negative Negative
[2019-05-12 17:37] LABS: Ketone-Dipstick 150 mg/dl (Negative)
[2019-05-12 17:38] LABS: Red Blood Cells-Urine 0-5 SEEN /hpf (0-5); Squamous Epithelial Cells - UA 0-5 SEEN /hpf (5-10); White Blood Cells 0-5 SEEN /hpf (0-5)
[2019-05-12] MEDS: 0.9% Normal Saline 1,000 ML 150 ML IV (19:00)
[2019-05-12 19:55] LABS: Anion Gap 7 (5-15); BUN 13 mg/dL (7-18); BUN/Creat Ratio 28.9 RATIO (10-20); Calcium,Total 7.6 mg/dL (8.5-10.1); Chloride 108 mmol/L (98-107); Creatinine, Serum 0.45 mg/dL (0.55-1.02); EST Glomerular Filtration Rate 187 mL/min (>60); Est Glom Filt Rate - Afr Amer 226 mL/min (>60); Estimated Creatinine Clearance 172.76 ml/min; Glucose 161 mg/dL (74-106); Potassium 3.4 mmol/L (3.5-5.1); Sodium Level 136 mmol/L (136-145)
[2019-05-12 20:25] VITALS: BP 115/66; PULSE 110; RESP 18; O2SAT 99
[2019-05-12 20:49] VITALS: RESP 18; O2SAT 97
== END 2019-05-12 20:50 | disposition home or self-care (01) ==
PROVIDERS: Emergency Provider Emergency Medicine; Family Provider Pediatrics; PCP Pediatrics
DX: E10.10 Type 1 diabetes mellitus with ketoacidosis without coma (principal); Z79.4 Long term (current) use of insulin; F12.90 Cannabis use, unspecified, uncomplicated
CPT/HCPCS: 71046; 80048; 80076; 81001; 81025; 82009; 82962; 84484; 85025; 93005; 96360; 96361; 99284; J7030; A4216

== ENCOUNTER 2019-06-12 08:58 | Inpatient (IN) | payer MEDICAID, SELFPAY ==
[2019-06-12] VITALS (12 sets, daily range): BP systolic 110–138; BP diastolic 59–81; PULSE 80–111; RESP 16–25; TEMP 36.1–37.1; O2SAT 98–100; BMI 24.2; BMI 23.1
--- NOTE | 2019-06-12 09:18 | ED.VISSUMM ---
- ER Visit Summary Date of Service: 06/12/19 Chief Complaint: Sick History of Present Illness: The patient is a 19 F who has been sick for the past week. It started with nausea and vomiting as well as dizziness and dehydration. She had some nausea and vomiting last night, and today she is feeling like she cannot tolerate anything by mouth. She has a history of hepatitis A, type 1 diabetes, and asthma. Physical Examination: Afebrile and vital signs unremarkable except for heart rate of 111. HEENT exam shows dry mucous membranes. Heart tachycardic but regular. Lungs clear. Abdomen soft. Back is nontender. Skin appears unremarkable. Test Results: CBC, CMP, UA, hCG pending. Emergency Department Course and Treatment: Patient was treated with fluids and Zofran while awaiting results. White count 4.2 and hemoglobin 15.1, CO2 16 and anion gap is 12. Glucose 339. pH on VBG was 7.25. ALT 61 and AST 42. Urinalysis unremarkable. Ketones moderate. hCG negative. Chest x-ray nothing acute. Patient was treated with additional fluids and insulin drip for DKA. She was discussed with the hospitalist and will be admitted for further care. Treatment Plan: As above Disposition: ICU Impression: DKA This note was generated with [employer] dictation software. It may contain incorrect words, spelling, and punctuation that were not noted in review of the chart prior to signing ED Disposition - Plan for ED Patient: Referrals: Martin Baldwin MD [STAFF PHYSICIAN] -
[2019-06-12 09:22] LABS: Bacteria 0 SEEN /hpf (None Seen); Mucous, Urine 0 SEEN /hpf (<or=2+); Red Blood Cells-Urine 0 SEEN /hpf (0-5); White Blood Cells 0 SEEN /hpf (0-5)
[2019-06-12 09:29] LABS: Color, Urine Yellow (Yellow); Glucose, Dipstick 1000 mg/dl (Normal); Leukocyte Esterase-Dipstick Negative /ul (Negative); Nitrite-Dipstick Negative (Negative); Occult Blood-Urine 25 /ul (Negative); Protein-Dipstick 100 mg/dl (Negative); Specific Gravity, Urine 1.025 (1.002-1.030); Urine Bilirubin Dipstick Negative (Negative); Urine Clarity Clear (Clear); Urine Urobilinogen Normal (Normal)
[2019-06-12 09:34] LABS: Ketone-Dipstick 150 mg/dl (Negative)
[2019-06-12 09:40] LABS: Internal QC Validated? YES +Cl - CLEAR BKGD; Pregnancy, Urine Negative Negative
[2019-06-12 09:41] LABS: Squamous Epithelial Cells - UA 0-5 SEEN /hpf (5-10)
[2019-06-12 09:45] LABS: Absolute Lymphocyte Count 1.78 X10^3/uL (0.83-4.51); Basophil# 0.03 X10^3/uL; Basophil% 0.7 % (0-1); Eosinophil# 0.06 X10^3/uL; Eosinophils% 1.4 % (0-5); Hemoglobin 15.1 g/dL (12.0-15.0); Lymphocyte # 1.78 X10^3/ul (4.0); Lymphocyte % 42.3 % (19-41); Mean Corp Hgb Conc 34.3 g/dL (32-36); Mean Corpuscular Hgb 28.5 pg (27.0-32.0); Mean Corpuscular Volume 83.2 fL (81-99); Mean Platelet Vol. 8.8 fl (6.2-12.0); Monocyte# 0.31 X10^3/uL; Monocyte% 7.4 % (0-10); NRBC Flagged by Analyzer 0 % (0-5); Neutrophil % 47.5 % (47-70); Platelet Count 363 K/mm3 (150-450); RBC Distribution Width CV 12.9 % (11.6-14.6); RBC Distribution Width SD 38.1 fl (35.1-43.9); Red Blood Count 5.29 M/mm3 (4.2-5.4); White Blood Count 4.2 K/mm3 (4.4-11.0)
[2019-06-12] MEDS: Ondansetron 4 MG/2 ML Vial IV (10:06)
[2019-06-12] MEDS: 0.9% Normal Saline 1,000 ML 1000 ML IV (10:06)
[2019-06-12 10:09] LABS: ALB/GLOB Ratio 1.1 RATIO (0.9-2.4); AST(SGOT) 42 U/L (15-37); Alanine Aminotransfer ALT/SGPT 61 U/L (13-56); Albumin, Serum 4.2 g/dL (3.2-5.0); Alkaline Phosphatase 94 U/L (45-117); Anion Gap 12 (5-15); BUN 6 mg/dL (7-18); BUN/Creat Ratio 7.4 RATIO (10-20); Calcium,Total 8.4 mg/dL (8.5-10.1); Chloride 106 mmol/L (98-107); Creatinine, Serum 0.81 mg/dL (0.55-1.02); EST Glomerular Filtration Rate 94 mL/min (>60); Est Glom Filt Rate - Afr Amer 114 mL/min (>60); Globulin 3.9 g/dL (2.2-4.2); Glucose 339 mg/dL (74-106); Potassium 4.2 mmol/L (3.5-5.1); Protein, Total 8.1 g/dL (6.4-8.2); Sodium Level 134 mmol/L (136-145)
--- NOTE | 2019-06-12 10:39 | RAD_ITS ---
STUDY: X-RAY CHEST REASON FOR EXAM: Female, 19 years old. Cough. TECHNIQUE: Single AP portable view of the chest. COMPARISON: None. FINDINGS: The lungs are clear and expanded. There is no demonstrated pleural abnormality. Normal size heart. Normal mediastinum and kaleigh. Normal visualized pulmonary arteries. Normal visualized aortic arch and descending thoracic aorta. Normal visualized thoracic spine. Normal visualized ribs, clavicles, and shoulders. There is no demonstrated abnormality of the visualized soft tissue structures of the upper abdomen. RAD/Chest 1 View (Portable) IMPRESSION: No evidence of acute cardiopulmonary process. Electronically Signed: Pramod Kirk DO at 11:08 EST , Service support ,
[2019-06-12 11:16] LABS: Blood Gas Specimen Type VEN; O2 Delivery Device Room Air; SITE OTHER; Time Given 1105; VBG BASE EXCESS -16 mmol/L (-1.0-3.5); VBG Bicarbonate 11 mmol/L (22-26); VBG Oxygen Content 12 mmol/L (23-33); VBG PO2 48 mmHg (25-40); VBG SO2 78 % (50-70); VBG pCO2 24.7 mmHg (41-51); VBG pH 7.25 (7.32-7.42)
[2019-06-12] MEDS: 0.9% Normal Saline 1,000 ML 999 ML IV (11:17)
--- NOTE | 2019-06-12 11:23 | EKG12_ITS ---
Test Reason : DIABETIC Blood Pressure : / mmHG Vent. Rate : 089 BPM Atrial Rate : 089 BPM P-R Int : 124 ms QRS Dur : 082 ms QT Int : 380 ms P-R-T Axes : 065 072 036 degrees QTc Int : 462 ms Normal sinus rhythm Normal ECG Confirmed by GREGORIA AGOSTO, RACHNA ([id number]), news assignment editor FRANKIE TRUONG ([id number]) on 06/15/2019 9:54:56 AM Referred By: Bianca Medina Confirmed By:RACHNA KINNEY MD
--- NOTE | 2019-06-12 11:33 | HP.PCM_ITS ---
History of Present Illness Date of Admission: 06/12/19 Chief Complaint: weakness, nausea and vomiting The patient is a 19 year old F with a past medical history of type 1 diabetes mellitus and asthma. She was admitted through the ED on 06/12/19 with a complaint of nausea, vomiting and general feeling of unwellness. She says she has been compliant with her insulin, and only remembers missing one dose recently. SHe started feeling lightheaded and dizzy and had associated nausea and vomiting. She denied any fever, chills, palpitations, burning with urination or any other symptoms. She has had DKA in the past, and says the last one was a few months ago. She follows up with an anesthesia associate in [place]. She states her sugars have been poorly controlled falls at home and are usually up like the 400s and 500s. In the ED, he had blood sugar of 258 but vitals were stable. Chemistry showed bicarb which was initially 16 but subsequently dropped to 13. She had no elevated white cell count. This x-ray showed no acute cardiopulmonary process and serum acetone was moderate. Urinalysis was also positive for ketones and glucose but was otherwise negative. VBG was done which showed pH of 7.25. She has been admitted to be managed for diabetic ketoacidosis. [] Past Medical History Past Medical History (Chronic Problems): Chronic Problems (Last Updated 08/20/18 @ 11:18 by Adriana Mulligan) Asthma (Chronic) Type I diabetes mellitus (Chronic) Medical History: Medical History (Last Updated 08/20/18 @ 11:18 by Adriana Mulligan) Asthma J45.909 Diabetes type 1, controlled E10.9 Dx : age 8 Last exacerbation : DKA : 07/07 Hypoglycemic episode : never ER visit : 07/07 Allergies Penicillins Allergy (Verified 06/12/19 08:59) Unknown Sulfa (Sulfonamide Antibiotics) Allergy (Verified 06/12/19 08:59) Unknown prednisone Adverse Reaction (Verified 06/12/19 08:59) Vomiting bee stings Allergy (Severe, Uncoded 06/12/19 08:59) Anaphylaxis Home Medications: Ambulatory Orders Medication Instructions Recorded Albuterol Sulfate [Ventolin Hfa] 2 puff INHALATION Q4H PRN PRN 08/25/18 Cetirizine HCl 10 mg PO QHS 08/25/18 Insulin Aspart [Novolog Flexpen] See Rx Instructions SC TIDCM 08/25/18 Insulin Glargine,Hum.rec.anlog 40 unit SC BID 08/25/18 [Basaglar Kwikpen U-100] Potassium Chloride [K-Dur] 20 meq PO BIDCM #30 tab 02/18/19 Surgical History: Surgical History (Last Reviewed 08/20/18 @ 10:59 by Adriana Mulligan) History of placement of ear tubes Z86.69 Surgical History: tonsillectomy, - - status post control insertion Psychiatric History: No pertinent psych hx 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 Lives: Roommate Smoking Status: Never smoker Alcohol: Occasional Drugs: None - *Family History Paternal Family History: Family History (Last Reviewed 08/20/18 @ 10:59 by Adriana Mulligan) Grandmother Diabetes Sister Asthma Brother Asthma History Items: Diabetes Sibling Family History: Family History (Last Reviewed 08/20/18 @ 10:59 by Adriana Mulligan) Grandmother Diabetes Sister Asthma Brother Asthma History Items: Asthma Review of Systems Constitutional: Reports: Anorexia, Chills, Fever, Malaise, Weakness, Fatigue Eyes: Denies: Blurred vision HEENT: Denies: Head Aches, Sinus Congestion, Sinus Drainage Cardiovascular: Denies: Chest Pain, Chest Pressure, Palpitations Respiratory: Denies: Cough, Shortness of Breath, Shortness of breath at rest, Shortness of breath upon exertion, Sputum production Gastrointestinal: Reports: Nausea, Vomiting. Denies: Abdominal Pain, Diarrhea Genitourinary: Denies: Dysuria Musculoskeletal: Denies: Joint Pain, Joint Tenderness Skin: Denies: Rash, Wounds Neurological: Denies: Numbness, Tingling, Focal weakness Psychiatric: Denies: Anxiety, Depression, Homicidal Ideations, Suicidal Ideations Hematologic/ Lymphatic: Denies: Easy Bruising, Easy Bleeding VTE Information - Inpt Only VTE Present on Admission: No VTE Pharm Prophylaxis ordered?: Yes - Physical Exam Vitals/I&O's: Vital Signs Temp Pulse Resp BP Pulse Ox 97 F L 81 16 138/77 H 98 06/12/19 09:00 06/12/19 11:18 06/12/19 11:18 06/12/19 11:18 06/12/19 11:18 Oxygen Delivery Method Room Air Weight: 120 lb Body Mass Index (BMI) 24.2 Finger Stick Blood Glucose 227 Intake and Output for Last 24 Hours 06/10/19 06/11/19 06/12/19 23:59 23:59 23:59 Intake Total 999 / 999 Balance 999 / 999 General: Alert, Oriented x3, Cooperative, No apparent distress, Lethargic HEENT: Atraumatic, PERRLA, EOMI, Normocephalic Oral: Dry Mucosa Neck: Supple, No JVD, Negative Carotid Bruits Lungs: Clear to auscultation, Normal air movement, No rhonchi, No wheeze, No rales Cardiovascular: Regular rate, Regular Rhythm, Normal S1, Normal S2, No murmurs Abdomen: Bowel Sounds Present, Soft, Non Tender Extremities: No edema, Capillary Refill Less than 3 Seconds Skin: No rashes, No breakdown Musculoskeletal: No Tenderness to Palpation of Joints or Extremities Lymphatic: No Cervical, Supraclavicular, or Inguinal Adenopathy Neurological: Cranial nerves II-XII grossly intact, Neuro grossly intact, Motor Exam 5/5 strength throughout Psych/Mental Status: Normal Affect, Appropriate, Alert and oriented to time, place, person, mood and affect Laboratory Results 06/12/19 09:05: Urine Test Negative 06/12/19 09:05: Urine Color Yellow, Urine Clarity Clear, Urine pH 6.0, Ur Specific [place] 1.025, Urine Protein 100 H, Urine Glucose (UA) 1000 H, Urine Ketones 150 H, Urine Occult Blood 25 H, Urine Nitrite Negative, Urine Bilirubin Negative, Urine Urobilinogen Normal, Ur Leukocyte Esterase Negative, Urine RBC 0 SEEN, Urine WBC 0 SEEN, Ur Squamous Epith Cells 0-5 SEEN, Urine Bacteria 0 SEEN, Urine Mucus 0 SEEN 06/12/19 09:32: WBC 4.2 L, RBC 5.29, Hgb 15.1 H, Hct 44.0, MCV 83.2, MCH 28.5, MCHC 34.3, RDW Std Deviation 38.1, RDW Coeff of Marilynn 12.9, Plt Count 363, MPV 8.8, Immature Gran % (Auto) 0.700, Neut % (Auto) 47.5, Lymph % (Auto) 42.3 H, [place] % (Auto) 7.4, Eos % (Auto) 1.4, Baso % (Auto) 0.7, Absolute Neuts (auto) 2.0, Absolute Lymphs (auto) 1.78, Nucleated RBC % 0 06/12/19 09:32: Sodium 134 L, Potassium 4.2, Chloride 106, Carbon Dioxide 16.0 L , Anion Gap 12, BUN 6 L, Creatinine 0.81, Estim Creat Clear Calc 94.40, Est GFR (MDRD) Af Amer 114, Est GFR (MDRD) Non-Af 94, BUN/Creatinine Ratio 7.4 L, Glucose 339 H, Calcium 8.4 L, Total Bilirubin 0.70, AST 42 H, ALT 61 H, Alkaline Phosphatase 94, Total Protein 8.1, Albumin 4.2, Globulin 3.9, Albumin/Globulin Ratio 1.1 06/12/19 09:32: Acetone Level MODERATE H 06/12/19 11:09: Specimen Type LUIS, Sample Site OTHER, VBG pH 7.25 L, VBG pO2 48 H, VBG O2 Sat (Calc) 78 H, VBG O2 Content 12 L, VBG Base Excess -16 L, POC Mix VBG pCO2 Pt Tmp 24.7 L, O2 Delivery Device Room Air, Blood Gas Notified Whom ED MD, Blood Gas Notified Time 1105 Diagnostic Data Chest X-Ray 06/12/19 10:39 IMPRESSION: No evidence of acute cardiopulmonary process. Electronically Signed: Pramod Kirk DO at 11:08 EST , Service support , Current Medications Sodium Chloride () 1,000 mls @ 999 mls/hr IV .Q1H1M ONE Stop: 06/12/19 11:39 Last Admin: 06/12/19 11:17 Dose: 999 mls/hr Documented by: Insulin Human Lispro 100 unit/ (Sodium Chloride) 100 mls @ 5.443 mls/hr IV .[id number] [facility]; Protocol Assessment/Plan All Active Problems (Last Updated 08/20/18 @ 11:18 by Adriana Mulligan) Acute hepatitis A virus infection (Acute) Hepatitis (Acute) Acute liver injury (Acute) Leucocytosis (Acute) 19 y/o admitted with a complaint of nausea and vomiting 1. DKA in a known type 1 diabetic * precipitating cause is unclear, as she claims compliance with her meds. she does say her sugars have been poorly controlled, so it is likely DKA was due to poorly controlled diabetes * admitting blood sugar was 339, but she had bicarb of 16, and moderate serum ketones * bicarb dropped to 13, and anion gap is 13. * admit to ICU; start insulin drip and aggressive hydration with IVF * check A1C * accuchecks q1hrly; BMP q2hrly * switch to D5 1/2 NS when blood sugar is <250 * hold home insulin dose for now whilst she is on insulin drip * 2. type 1 diabetes mellitus: as under 1. 3. Asthma: controlled. Not in exacerbation. DVT prophylaxis; lovenox Code Visit Inpatient E&M: 99829 Init Hosp L3
[2019-06-12 11:46] LABS: Bedside Glucose 258 mg/dL (70-110)
[2019-06-12 11:56] LABS: Anion Gap 13 (5-15); BUN 5 mg/dL (7-18); BUN/Creat Ratio 8.2 RATIO (10-20); Calcium,Total 7.4 mg/dL (8.5-10.1); Chloride 113 mmol/L (98-107); Creatinine, Serum 0.61 mg/dL (0.55-1.02); EST Glomerular Filtration Rate 131 mL/min (>60); Est Glom Filt Rate - Afr Amer 159 mL/min (>60); Estimated Creatinine Clearance 125.36 ml/min; Glucose 278 mg/dL (74-106); Potassium 3.7 mmol/L (3.5-5.1); Sodium Level 139 mmol/L (136-145)
--- NOTE | 2019-06-12 12:09 | ED.RN ---
INSULIN DRIP HELD BY DR VITAL
[2019-06-12 12:41] LABS: Bedside Glucose 270 mg/dL (70-110)
[2019-06-12] MEDS: 0.9% Normal Saline 1,000 ML 500 ML IV (13:40)
[2019-06-12 13:51] LABS: Bedside Glucose 252 mg/dL (70-110)
[2019-06-12 14:11] LABS: Anion Gap 12 (5-15); BUN 5 mg/dL (7-18); BUN/Creat Ratio 9.1 RATIO (10-20); Calcium,Total 7.2 mg/dL (8.5-10.1); Chloride 114 mmol/L (98-107); Creatinine, Serum 0.55 mg/dL (0.55-1.02); EST Glomerular Filtration Rate 148 mL/min (>60); Est Glom Filt Rate - Afr Amer 179 mL/min (>60); Estimated Creatinine Clearance 133.08 ml/min; Glucose 254 mg/dL (74-106); Potassium 3.5 mmol/L (3.5-5.1); Sodium Level 139 mmol/L (136-145)
[2019-06-12 14:20] LABS: Hemoglobin A1c 12.7 % (4.2-6.3)
--- NOTE | 2019-06-12 14:51 | CM.UR ---
SARA NICOLE assessment: Face to Face with patient for initial transition planning/care coordination assessment. SARA NICOLE introduced self and role at [facility], pt voices understanding and consents to assessment at this time. Pt is lying in bed in no distress at this time. Pt is A/Ox4 at this time and answers all questions appropriately at this time. Care providers, pharmacy, and demographics verified at this time. PCP: M[facility]in[facility] Complaints: nausea and vomiting x 1 week. Dx: DKA Preferred Pharmacy: [facility] Insurance: [facility] Prescription Benefit: [facility] Living Will/HPOA: Pt states does not have LW/HPOA and declines info at this time. LNOK: Dar Santiago, father; Michael iMller, grandfather Living Arrangements: States that her mother is now engaged to her ex and wants nothing to do with her. States she has 2 weeks to get out of current home. ADLs: states is independent with ADL's. Transportation: Patient states that she still doesn't have a license and even if she got it she does not have a car. States currently has no one to transport her around. She currently lives in [place]. DME: Wears a continuous glucose meter, currently on right arm. HHC: None SNF: None Patient is concerned about living arrangements and transportation. Asked if I can send socially responsible investment adviser and patient agreed. Pt Goal: Home Plan: Home/safe environment. Abraham Mishra RN, CCM
[2019-06-12 15:36] LABS: Allen Test POS; Base Excess -16 mmol/L (-2 to +2); Bicarbonate 10.9 mmol/L (22-26); Blood Gas Specimen Type ART; O2 Delivery Device Room Air; PO2 51 mmHG (75-100); SITE R Radial; SO2 80 % (95-99); Time Given 1522; Total Carbon Dioxide 12 mmol/L; pCO2 25.1 mmHg (35-45); pH 7.24 (7.35-7.45)
[2019-06-12 15:51] LABS: Bedside Glucose 177 mg/dL (70-110)
--- NOTE | 2019-06-12 17:22 | CASEMGMT ---
Social Work Consult: Resources Informant: SARA Wilde CM Chief Complaint: we are getting kicked out in two weeks. Social/Marital History: Currently engaged to Lee. Have been in relationship for the past year. Living Situation: Currently lives with younger brother and three other people. Per patient patient and Lee are to be out of the house within the next few weeks. Education/Employment: Highest grade completed is the 10th grade. Currently works at [employer]. Lee stating to not be working at this time. Per patient I have no money. Support/Resources: Limited. Patient stating to depend on an elderly man for transportation but that this person lives in [place] so it makes things difficult. Mental Health treatment/history: Denies any mental health history PCP: Dr. Sen. Specialist: I have a diabetic doctor in [place]. Substance Abuse History: Stating I use to smoke pot. But don't anymore because I don't have any money. Assessment: Met with patient and patient fiance in room. Introduced self as well as social insurance analyst role. Patient is agreeable to meet with this social insurance analyst. Patient stating main concern is housing. Patient stating to not be sure where to go when patient and Lee are kicked out in a few weeks. This social insurance analyst inquiring if patient has applied to [facility] as patient is stating to be financially limited. Patient stating there is a waiting list. Patient denies getting on the waiting list. This social insurance analyst encouraging patient to get on waiting list with [facility] even if it takes awhile there will be something that is working towards housing. This social insurance analyst educating patient on the housing assistance program through [employer] as well. Patient provided with 2-1-1 resource guide that includes information on housing assistance as well as the [facility] and other shelters. The resource guide also has information about transportation assistance programs. Patient educated on the [employer] and shelters in [place] if needed. Active listening and support provided. Was able to also explore the option of talking things through with patient brother until other housing is able to be established. Patient thanking this social insurance analyst for the information. Ambrose STAPLES, DEXTER
[2019-06-12 17:25] LABS: Anion Gap 11 (5-15); BUN 4 mg/dL (7-18); BUN/Creat Ratio 7.8 RATIO (10-20); Calcium,Total 7.7 mg/dL (8.5-10.1); Chloride 115 mmol/L (98-107); Creatinine, Serum 0.52 mg/dL (0.55-1.02); EST Glomerular Filtration Rate 160 mL/min (>60); Est Glom Filt Rate - Afr Amer 193 mL/min (>60); Estimated Creatinine Clearance 140.76 ml/min; Glucose 171 mg/dL (74-106); Potassium 3.6 mmol/L (3.5-5.1); Sodium Level 141 mmol/L (136-145)
[2019-06-12 21:03] LABS: Magnesium 1.6 mg/dL (1.6-2.6); Phosphorus 1.3 mg/dL (2.5-4.9)
[2019-06-12] MEDS: Insulin Lispro 100 UNIT/ML INSULN.PEN SC (22:34)
[2019-06-12 22:45] LABS: Bedside Glucose 354 mg/dL (70-110)
--- NOTE | 2019-06-13 01:14 | NURSING ---
Pt requesting a frozen dinner because she's starving. Fingerstick glucometer obtained, pt's results 313.
[2019-06-13 01:26] LABS: Bedside Glucose 313 mg/dL (70-110)
--- NOTE | 2019-06-13 03:46 | NURSING ---
Pt placed call light on, requesting fingerstick glucometer check because she's having all of the low blood sugar symptoms, like sweating, fidgeting and just can't sleep. Pt's glucometer reading 222, pt encouraged to turn lights and TV off in order to get some rest. Pt agreed.
[2019-06-13 03:51] LABS: Bedside Glucose 222 mg/dL (70-110)
[2019-06-13 03:57] LABS: Hematocrit 35.7 % (37-47); Hemoglobin 12.4 g/dL (12.0-15.0); Mean Corpuscular Hgb 28.2 pg (27.0-32.0); Mean Corpuscular Volume 81.1 fL (81-99); White Blood Count 4.4 K/mm3 (4.4-11.0)
[2019-06-13 03:58] LABS: Absolute Lymphocyte Count 1.94 X10^3/uL (0.83-4.51); Absolute Neutrophil Count 2.2 X10^3/uL (2.0-7.7); Basophil# 0.03 X10^3/uL; Basophil% 0.7 % (0-1); Eosinophil# 0.05 X10^3/uL; Eosinophils% 1.1 % (0-5); Lymphocyte # 1.94 X10^3/ul (4.0); Lymphocyte % 43.8 % (19-41); Mean Corp Hgb Conc 34.7 g/dL (32-36); Mean Platelet Vol. 8.7 fl (6.2-12.0); Monocyte# 0.23 X10^3/uL; Monocyte% 5.2 % (0-10); NRBC Flagged by Analyzer 0 % (0-5); Neutrophil # 2.16 X10^3/uL (2.7-7.7); Neutrophil % 48.7 % (47-70); Platelet Count 265 K/mm3 (150-450); RBC Distribution Width CV 12.5 % (11.6-14.6); RBC Distribution Width SD 36.2 fl (35.1-43.9)
[2019-06-13 04:00] VITALS: BP 109/68; PULSE 76; RESP 17; TEMP 36.7; O2SAT 95
[2019-06-13 04:14] LABS: Anion Gap 9 (5-15); BUN 6 mg/dL (7-18); Calcium,Total 7.9 mg/dL (8.5-10.1); Chloride 108 mmol/L (98-107); Creatinine, Serum 0.54 mg/dL (0.55-1.02); EST Glomerular Filtration Rate 150 mL/min (>60); Est Glom Filt Rate - Afr Amer 181 mL/min (>60); Estimated Creatinine Clearance 135.54 ml/min; Glucose 263 mg/dL (74-106); Potassium 3.3 mmol/L (3.5-5.1); Sodium Level 139 mmol/L (136-145)
[2019-06-13 04:17] LABS: Phosphorus 2.1 mg/dL (2.5-4.9)
--- NOTE | 2019-06-13 08:40 | PCM.DC ---
You will use the following diet at home:: Calorie/Carbohydrate Controlled (specify 1200, 1400, etc) - 1800 Your food should be the consistency of: Regular Your liquids should be the consistency of: Regular/Thin Discharge Activity: Return to Normal Activity Weight Bearing Status: Weight bearing as tolerated Call your doctor if you observe: - - nausea, vomiting, abdominal pain, poorly controlled blood sugars Instructions: Ketone Bodies (Blood), Checking for Ketones Additional Instructions: please follow up with your endocrinologists as soon as possible Allergies/Adverse Reactions: Allergies Penicillins Allergy (Verified 06/12/19 08:59) Unknown Sulfa (Sulfonamide Antibiotics) Allergy (Verified 06/12/19 08:59) Unknown prednisone Adverse Reaction (Verified 06/12/19 08:59) Vomiting bee stings Allergy (Severe, Uncoded 06/12/19 08:59) Anaphylaxis Medications to take at Discharge Albuterol Sulfate [Ventolin Hfa] 2 puff INHALATION Q4H PRN PRN 08/25/18 Cetirizine HCl 10 mg PO QHS 08/25/18 Insulin Aspart [Novolog Flexpen] See Rx Instructions SC TIDCM 08/25/18 Potassium Chloride [K-Dur] 20 meq PO BIDCM #30 tab 02/18/19 Insulin Glargine,Hum.rec.anlog [Basaglar Kwikpen U-100] 40 unit SUBCUT BID #5 insuln.pen 06/13/19 The following prescriptions were given: Insulin Glargine,Hum.rec.anlog [Basaglar Kwikpen U-100] 40 unit SUBCUT BID #5 insuln.pen Transmission Status: Pending to [address] Primary Care Physician: Martin Baldwin MD [STAFF PHYSICIAN] - Please follow up with your Primary Care Physician in: one week Test Results: Test results from this visit will be discussed in further detail at your follow-up appointment, if applicable. Proposed Discharge Date: 06/13/19
--- NOTE | 2019-06-13 08:43 | DS.PCM_ITS ---
Discharge Date and Diagnosis Date of Admission: 06/12/19 Date of Discharge: 06/13/19 - Primary Discharge Diagnosis diabetic ketoacidosis poorly controlled type 1 diabetes mellitus - Secondary Discharge Diagnosis Chronic Problems (Last Updated 08/20/18 @ 11:18 by Adriana Mulligan) Asthma (Chronic) Type I diabetes mellitus (Chronic) Hospital Course and Treatment none Operations: None Procedures: None Summary of Care Provided: The patient is a 19 year old F with a past medical history of type 1 diabetes mellitus and asthma. She was admitted through the ED on 06/12/19 with a complaint of nausea, vomiting and general feeling of unwellness. She says she has been compliant with her insulin, and only remembers missing one dose recently. SHe started feeling lightheaded and dizzy and had associated nausea and vomiting. She denied any fever, chills, palpitations, burning with urination or any other symptoms. She has had DKA in the past, and says the last one was a few months ago. She follows up with an plastic block boiler reliner in [place]. She states her sugars have been poorly controlled falls at home and are usually up like the 400s and 500s. In the ED, he had blood sugar of 258 but vitals were stable. Chemistry showed bicarb which was initially 16 but subsequently dropped to 13. She had no elevated white cell count. This x-ray showed no acute cardiopulmonary process and serum acetone was moderate. Urinalysis was also positive for ketones and glucose but was otherwise negative. VBG was done which showed pH of 7.25. She was admitted to be managed for diabetic ketoacidosis due to poorly controlled diabetes. She was admitted to the ICU hydrated with IV fluids. Patient ended up not requiring insulin drip as her blood sugar fell just with IV hydration to around 250. She was commenced on her home Lantus dose of 40 units twice daily. A1c was checked and was 12.7, though patient claims she had been compliant with her Lantus dose. Bicarb increased to 22. She did never have an elevated anion gap and at time of discharge, anion gap was 9. He remained stable. Patient said her plastic block boiler reliner in [facility] had put her on Lantus 50 units nightly though in her med rec is showed that she was on Lantus 40 units twice daily. Patient was counseled but in light of very poorly controlled diabetes, she will be put on Lantus 40 units twice daily. She is currently using a sliding scale and is to follow-up with her primary care doctor and with her plastic block boiler reliner as soon as possible. Patient improved much more quickly than expected and she was discharged home on 06/13/2019 with a prescription for Lantus 40 units twice daily. Patient seen and examined prior to discharge. She felt well and had no complaints. Review of systems otherwise negative. Labs and vitals reviewed. Home medication reviewed and reconciled. o/e: Vital Signs Height 4 ft 11 in Weight: 114 lb 13.773 oz Weight in Pounds 114.9 lbs Pulse Ox 100 Temperature 97.9 F Pulse Rate 75 Respiratory Rate 14 Blood Pressure [BP] 135/64 Blood Pressure 118/59 Blood Pressure Position [BP] Sitting Blood Pressure Position Semi-Fowlers [] General: Alert, Oriented x3, Cooperative, No apparent distress HEENT: Atraumatic, PERRLA, EOMI, Normocephalic Oral: Dry Mucosa Neck: Supple, No JVD, Negative Carotid Bruits Lungs: Clear to auscultation, Normal air movement, No rhonchi, No wheeze, No rales Cardiovascular: Regular rate, Regular Rhythm, Normal S1, Normal S2, No murmurs Abdomen: Bowel Sounds Present, Soft, Non Tender Extremities: No edema, Capillary Refill Less than 3 Seconds Skin: No rashes, No breakdown Musculoskeletal: No Tenderness to Palpation of Joints or Extremities Lymphatic: No Cervical, Supraclavicular, or Inguinal Adenopathy Neurological: Cranial nerves II-XII grossly intact, Neuro grossly intact, Motor Exam 5/5 strength throughout Psych/Mental Status: Normal Affect, Appropriate, Alert and oriented to time, place, person, mood and affect Plan as above. ] - Physical Exam Vitals/I&O's: Vital Signs Temp Pulse Resp BP Pulse Ox 98.1 F 76 17 109/68 95 06/13/19 04:00 06/13/19 04:00 06/13/19 04:00 06/13/19 04:00 06/13/19 04:00 Oxygen Delivery Method Room Air Weight: 114 lb 13.773 oz Body Mass Index (BMI) 23.1 Finger Stick Blood Glucose 258 Intake and Output for Last 24 Hours 06/11/19 06/12/19 06/13/19 23:59 23:59 23:59 Intake Total 3300 / 3800 1107 / 1107 Balance 3300 / 3800 1107 / 1107 Laboratory Results 06/12/19 09:05: Urine Test Negative 06/12/19 09:05: Urine Color Yellow, Urine Clarity Clear, Urine pH 6.0, Ur Specific [place] 1.025, Urine Protein 100 H, Urine Glucose (UA) 1000 H, Urine Ketones 150 H, Urine Occult Blood 25 H, Urine Nitrite Negative, Urine Bilirubin Negative, Urine Urobilinogen Normal, Ur Leukocyte Esterase Negative, Urine RBC 0 SEEN, Urine WBC 0 SEEN, Ur Squamous Epith Cells 0-5 SEEN, Urine Bacteria 0 SEEN, Urine Mucus 0 SEEN 06/12/19 09:32: WBC 4.2 L, RBC 5.29, Hgb 15.1 H, Hct 44.0, MCV 83.2, MCH 28.5, MCHC 34.3, RDW Std Deviation 38.1, RDW Coeff of Marilynn 12.9, Plt Count 363, MPV 8.8, Immature Gran % (Auto) 0.700, Neut % (Auto) 47.5, Lymph % (Auto) 42.3 H, [place] % (Auto) 7.4, Eos % (Auto) 1.4, Baso % (Auto) 0.7, Absolute Neuts (auto) 2.0, Absolute Lymphs (auto) 1.78, Nucleated RBC % 0 06/12/19 09:32: Sodium 134 L, Potassium 4.2, Chloride 106, Carbon Dioxide 16.0 L , Anion Gap 12, BUN 6 L, Creatinine 0.81, Estim Creat Clear Calc 94.40, Est GFR (MDRD) Af Amer 114, Est GFR (MDRD) Non-Af 94, BUN/Creatinine Ratio 7.4 L, Glucose 339 H, Calcium 8.4 L, Total Bilirubin 0.70, AST 42 H, ALT 61 H, Alkaline Phosphatase 94, Total Protein 8.1, Albumin 4.2, Globulin 3.9, Albumin/Globulin Ratio 1.1 06/12/19 09:32: Acetone Level MODERATE H 06/12/19 11:09: Specimen Type LUIS, Sample Site OTHER, VBG pH 7.25 L, VBG pO2 48 H, VBG O2 Sat (Calc) 78 H, VBG O2 Content 12 L, VBG Base Excess -16 L, POC Mix VBG pCO2 Pt Tmp 24.7 L, O2 Delivery Device Room Air, Blood Gas Notified Whom ED , Blood Gas Notified Time 1105 06/12/19 11:38: Sodium 139, Potassium 3.7, Chloride 113 H, Carbon Dioxide 13.0 L , Anion Gap 13, BUN 5 L, Creatinine 0.61, Estim Creat Clear Calc 125.36, Est GFR (MDRD) Af Amer 159, Est GFR (MDRD) Non-Af 131, BUN/Creatinine Ratio 8.2 L, Glucose 278 H, Calcium 7.4 L 06/12/19 11:41: POC Glucose 258 H 06/12/19 12:34: POC Glucose 270 H 06/12/19 13:45: Sodium 139, Potassium 3.5, Chloride 114 H, Carbon Dioxide 13.0 L , Anion Gap 12, BUN 5 L, Creatinine 0.55, Estim Creat Clear Calc 133.08, Est GFR (MDRD) Af Amer 179, Est GFR (MDRD) Non-Af 148, BUN/Creatinine Ratio 9.1 L, Glucose 254 H, Calcium 7.2 L 06/12/19 13:45: Hemoglobin A1c 12.7 H 06/12/19 13:46: POC Glucose 252 H 06/12/19 15:30: Specimen Type ART, Sample Site R Radial, pH 7.24 L, Bicarbonate Actual 10.9 L, POC Total CO2 12, Base Excess -16 L, O2 Saturation 80 L, ABG pCO2 25.1 L, ABG pO2 51 L, [place] Test POS, O2 Delivery Device Room Air, Blood Gas Notified Whom ICU MD, Blood Gas Notified Time 1522 06/12/19 15:38: POC Glucose 177 H 06/12/19 16:45: Sodium 141, Potassium 3.6, Chloride 115 H, Carbon Dioxide 15.0 L , Anion Gap 11, BUN 4 L, Creatinine 0.52 L, Estim Creat Clear Calc 140.76, Est GFR (MDRD) Af Amer 193, Est GFR (MDRD) Non-Af 160, BUN/Creatinine Ratio 7.8 L, Glucose 171 H, Calcium 7.7 L 06/12/19 16:45: Phosphorus 1.3 L, Magnesium 1.6 06/12/19 22:12: POC Glucose 354 H 06/13/19 01:17: POC Glucose 313 H 06/13/19 03:46: POC Glucose 222 H 06/13/19 03:50: WBC 4.4, RBC 4.40, Hgb 12.4, Hct 35.7 L, MCV 81.1, MCH 28.2, MCHC 34.7, RDW Std Deviation 36.2, RDW Coeff of Marilynn 12.5, Plt Count 265, MPV 8.7, Immature Gran % (Auto) 0.500, Neut % (Auto) 48.7, Lymph % (Auto) 43.8 H, [place] % (Auto) 5.2, Eos % (Auto) 1.1, Baso % (Auto) 0.7, Absolute Neuts (auto) 2.2, Absolute Lymphs (auto) 1.94, Nucleated RBC % 0 06/13/19 03:50: Sodium 139, Potassium 3.3 L, Chloride 108 H, Carbon Dioxide 22.0, Anion Gap 9, BUN 6 L, Creatinine 0.54 L, Estim Creat Clear Calc 135.54, Est GFR (MDRD) Af Amer 181, Est GFR (MDRD) Non-Af 150, BUN/Creatinine Ratio 11.0, Glucose 263 H, Calcium 7.9 L 06/13/19 03:50: Phosphorus 2.1 L Current Medications Albuterol Sulfate (Ventolin Aerosols) 2.5 mg INHALATION Q4H PRN PRN PRN Reason: SOB/WHEEZING Dextrose (D50w Syringe) 0 gm IV X1 PRN; Protocol PRN Reason: HYPOGLYCEMIA Dextrose (D50w Syringe) 0 gm IV X1 PRN; Protocol PRN Reason: Hypoglycemia Enoxaparin Sodium (Lovenox) 40 mg SC DAILY@1000 ADARSH Glucagon () 1 mg IM .X1 PRN PRN Reason: Hypoglycemia Insulin Glargine (Lantus (Bk)) 40 units SC BID [facility] Last Admin: 06/12/19 22:37 Dose: Not Given Documented by: Insulin Human Lispro (Humalog Kwikpen (Bk)) 0 unit SC ACHS [facility]; Protocol Last Admin: 06/12/19 22:34 Dose: 6 u Documented by: Loratadine (Claritin) 10 mg PO QHS [facility] Ondansetron HCl (Zofran) 4 mg IV Q8H PRN PRN PRN Reason: NAUSEA/VOMITING Potassium Chloride (K-Dur) 20 meq PO BIDCM ADAR[facility] Last Admin: 06/12/19 15:42 Dose: 20 meq Documented by: Potassium Chloride (K-Dur) 40 meq PO X1 ONE Stop: 06/13/19 08:40 Sodium Chloride () 10 - 40 ml IV UD PRN PRN Reason: SALINE FLUSH Discharge Diet: 1800 Calorie Control Diet Discharge Activity: Return to Normal Activity Weight Bearing Status: Weight bearing as tolerated Call your doctor if you observe: - - nausea, vomiting, abdominal pain, poorly controlled blood sugars Home Medications: Medications to take at Discharge Albuterol Sulfate [Ventolin Hfa] 2 puff INHALATION Q4H PRN PRN 08/25/18 Cetirizine HCl 10 mg PO QHS 08/25/18 Insulin Aspart [Novolog Flexpen] See Rx Instructions SC TIDCM 08/25/18 Potassium Chloride [K-Dur] 20 meq PO BIDCM #30 tab 02/18/19 Insulin Glargine,Hum.rec.anlog [Basaglar Kwikpen U-100] 40 unit SUBCUT BID #5 insuln.pen 06/13/19 Following Prescrptions Were Given to Patient: Insulin Glargine,Hum.rec.anlog [Basaglar Kwikpen U-100] 40 unit SUBCUT BID #5 insuln.pen Transmission Status: Received by [address] Primary Care Physician: Martin Baldwin MD [STAFF PHYSICIAN] - Please follow up with your Primary Care Physician in: one week Patient Instructions: Ketone Bodies (Blood), Checking for Ketones Disposition: Home Minutes spent on discharge:: 35 Patient Condition:: Stable Medical Necessity - Tobacco Use Smoking Status: Never smoker Meaningful Use Info Meaningful Use Diagnoses (Choose all that apply): None applicable Code Visit Inpatient E&M: 16968 Disch Hosp
[2019-06-13] MEDS: Insulin Lispro 100 UNIT/ML INSULN.PEN SC (08:49)
[2019-06-13 12:42] VITALS: BP 118/59; PULSE 75; RESP 14; TEMP 36.6; O2SAT 100
== END 2019-06-13 12:42 | disposition home or self-care (01) | DRG 420 ==
LOC: ED 09:26 → ICU 20:54
PROVIDERS: Family Medicine; Admitting Provider Student in an Organized Health Care Education/Training Program; Emergency Provider Emergency Medicine; Family Provider Internal Medicine; PCP Internal Medicine; Referring Provider Student in an Organized Health Care Education/Training Program; Visit Provider Student in an Organized Health Care Education/Training Program
DX: E10.10 Type 1 diabetes mellitus with ketoacidosis without coma (principal); J45.909 Unspecified asthma, uncomplicated; Z79.4 Long term (current) use of insulin
CPT/HCPCS: 36600; 71045; 80048; 80053; 81001; 81025; 82009; 82803; 82962; 83036; 83735; 84100; 85025; 93005; 97802; 99285; J7030; J7050; A4216; J2405

== ENCOUNTER 2019-11-10 10:50 | Observation (INO) | payer MEDICAID, SELFPAY ==
[2019-06-12 12:20] VITALS: BMI 23.1
[2019-11-10] VITALS (23 sets, daily range): BP systolic 97–142; BP diastolic 45–91; PULSE 108–150; RESP 16–24; TEMP 36.1–37.4; O2SAT 97–100; BMI 28.3; BMI 24.7; BMI 22.3
[2019-11-10 11:05] LABS: Bedside Glucose > 500 mg/dL (70-110)
--- NOTE | 2019-11-10 11:07 | ED.VIS.GEN ---
History of Present Illness Chief Complaint: Hyperglycemia Narrative: This patient is a 19-year-old female with type 1 diabetes who presents with possible DKA. She has not had internet at home so has been unable to monitor her blood sugar for the last 2 days. She has been taking her long-acting insulin in the mornings but because she was uncertain of her blood sugar she has not been taking her sliding scale insulin with meals for the past 2 days. She developed nausea and vomiting this morning. She denies any pain. No diarrhea. No recent illness such as fever cough or congestion. Past Medical History - Allergies and Home Meds Allergies/Adverse Reactions: Allergies Penicillins Allergy (Verified 06/12/19 08:59) Unknown Sulfa (Sulfonamide Antibiotics) Allergy (Verified 06/12/19 08:59) Unknown prednisone Adverse Reaction (Verified 06/12/19 08:59) Vomiting bee stings Allergy (Severe, Uncoded 06/12/19 08:59) Anaphylaxis Primary Care Physician: Erika Sen MD [Primary Care Provider] - Past Medical History: - - Type 1 diabetes, asthma Surgical History: tonsillectomy, - - status post control insertion Smoking Status: Never smoker - Family History Paternal Family History: Family History (Last Reviewed 08/20/18 @ 10:59 by Adriana Mulligan) Grandmother Diabetes Sister Asthma Brother Asthma Family History: Reports: Diabetes Sibling Family History: Family History (Last Reviewed 08/20/18 @ 10:59 by Adriana Mulligan) Grandmother Diabetes Sister Asthma Brother Asthma Family History: Reports: Asthma Review of Systems All systems negative except as indicated General: Denies: Fever Eyes: Denies: Visual changes - bilaterally ENT: Denies: Bilateral ear pain Cardiovascular: Denies: Chest pain Respiratory: Denies: Dyspnea Gastrointestinal: Reports: Nausea, Vomiting. Denies: Abdominal pain, Diarrhea Musculoskeletal: Denies: Myalgias, Arthralgias Skin: Denies: Rash Neurological: Denies: Headache Allergy: Denies: Uticaria Physical Exam Vital Signs/Narrative: Vital Signs Temp Pulse Resp BP Pulse Ox 11/10/19 10:51 97 F L 150 H 22 H 120/85 H 98 Inital Vital Signs reviewed: Yes General: Well nourished, Well developed Head: Normocephalic Eyes: EOMI ENT: Dry mucous membranes Neck: Supple Cardiovascular: - - Heart is regular tachycardia no murmur Respiratory: - - Tachypnea but lungs are clear without rales or wheezing Abdomen: Soft, Nontender Extremities: No edema Skin: Normal color Neurological: Alert Psychological: Normal affect Diagnostic/Tx/Re-eval Laboratory Results 11/10/19 11/10/19 11/10/19 10:57 11:15 11:15 WBC 22.6 H RBC 5.91 H Hgb 17.2 H Hct 52.8 H MCV 89.3 MCH 29.1 MCHC 32.6 RDW Std Deviation 41.0 RDW Coeff of Marilynn 12.6 Plt Count 496 H MPV 9.5 Immature Gran % (Auto) 1.200 H Neut % (Auto) 89.0 H Lymph % (Auto) 6.0 L [place] % (Auto) 3.0 Eos % (Auto) 0.2 Baso % (Auto) 0.6 Absolute Neuts (auto) 20.1 H Absolute Lymphs (auto) 1.36 Nucleated RBC % 0 Sodium 132 L Potassium 4.5 Chloride 94 L Carbon Dioxide 12.0 L Anion Gap 26 H BUN 19 H Creatinine 1.26 H Estim Creat Clear Calc 70.80 Est GFR (MDRD) Af Amer 69 Est GFR (MDRD) Non-Af 57 L BUN/Creatinine Ratio 15.1 Glucose 633 H* Calcium 9.8 POC Glucose > 500 H* - Medical Decision Making Patient's clinical presentation is most concerning for diabetic ketoacidosis. She was treated with aggressive IV fluid hydration. She was given Zofran for nausea. Labs notable for white blood cell count of 22,000 which is likely reactive. She does not have infectious symptoms or any obvious sign of infectious process. Blood sugar is 633. Venous blood gas shows pH of 7.0 with a bicarbonate of 9.9. We are unable to obtain serum acetone due to lack of reagent in the lab. Patient was started on an insulin infusion and will be admitted to the ICU. - Critical Care Time Critical care time (excluding procedures): 30-74 minutes, Discussing w/Patient &/or Family/Stenotype Machine Operator, Arranging Admission or Transfer ED Disposition - Plan for ED Patient: Disposition: Acute Care Hospital [facility] Diagnosis: DKA (diabetic ketoacidoses) Referrals: Erika Sen MD [Primary Care Provider] -
[2019-11-10] MEDS: Ondansetron 4 MG/2 ML Vial IV (11:19)
[2019-11-10] MEDS: 0.9% Normal Saline 1,000 ML 1000 ML IV ×2 (11:19→12:26)
[2019-11-10 11:29] LABS: Absolute Lymphocyte Count 1.36 X10^3/uL (0.83-4.51); Absolute Neutrophil Count 20.1 X10^3/uL (2.0-7.7); Basophil# 0.14 X10^3/uL; Basophil% 0.6 % (0-1); Eosinophil# 0.05 X10^3/uL; Eosinophils% 0.2 % (0-5); Hematocrit 52.8 % (37-47); Hemoglobin 17.2 g/dL (12.0-15.0); Lymphocyte # 1.36 X10^3/ul (4.0); Mean Corp Hgb Conc 32.6 g/dL (32-36); Mean Corpuscular Hgb 29.1 pg (27.0-32.0); Mean Corpuscular Volume 89.3 fL (81-99); Mean Platelet Vol. 9.5 fl (6.2-12.0); Monocyte# 0.69 X10^3/uL; NRBC Flagged by Analyzer 0 % (0-5); Neutrophil # 20.11 X10^3/uL (2.7-7.7); POSITIVE DIFFERENTIAL YES; Platelet Count 496 K/mm3 (150-450); RBC Distribution Width CV 12.6 % (11.6-14.6); Red Blood Count 5.91 M/mm3 (4.2-5.4); White Blood Count 22.6 K/mm3 (4.4-11.0)
[2019-11-10 11:30] LABS: Differential Indicated SCAN CRITERIA MET
[2019-11-10 11:47] LABS: Anion Gap 26 (5-15); BUN 19 mg/dL (7-18); BUN/Creat Ratio 15.1 RATIO (10-20); Calcium,Total 9.8 mg/dL (8.5-10.1); Chloride 94 mmol/L (98-107); Creatinine, Serum 1.26 mg/dL (0.55-1.02); EST Glomerular Filtration Rate 57 mL/min (>60); Est Glom Filt Rate - Afr Amer 69 mL/min (>60); Glucose 633 mg/dL (74-106); Potassium 4.5 mmol/L (3.5-5.1); Sodium Level 132 mmol/L (136-145)
[2019-11-10 11:55] LABS: VBG BASE EXCESS -21 mmol/L (-1.0-3.5); VBG Bicarbonate 10 mmol/L (22-26); VBG Oxygen Content 11 mmol/L (23-33); VBG PO2 39 mmHg (25-40); VBG SO2 49 % (50-70); VBG pCO2 39.7 mmHg (41-51)
--- NOTE | 2019-11-10 12:00 | PCM.HP.STD ---
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 The patient is a 19 y/o F w/ PMHx: Hx Hepatitis A, Asthma, Diabetes mellitus type I with freestyle implant, Cannabis usage who presents to the [facility] ED on 11/10/19 with history of awakening at 5 AM with significant nausea without emesis but inability to have any oral intake since this AM and mild back discomfort with no other associated symptoms including abdominal pain, cramping, diarrhea, dyspnea, cough noting that she has been unable to check her blood sugars over the last 2 days at least. Discussed her most recent hemoglobin A1c which was significantly elevated and consistent with very poorly controlled diabetes and she admitted that she has been attempting to work on this. She states that she does take her insulin and attempt to be diet compliant. Work-up in the ED included T 97, heart rate initially 150 with improvement to 122 with hydration, BP 08/13/1984, respiratory rate 22, 98% on room air, CBC with WC 22.6, hemoglobin 17.2, platelet 496 with a left shift, VBG with pH 7.01, O2 49, BMP with sodium 132, chloride 94, carbon oxide 12, anion gap 26, BUN/creatinine 19/1.26, glucose 633, acetone moderate, urinalysis with specific gravity 1.020, protein 30, glucose 1000, ketones 150 otherwise unremarkable with no evidence of UTI. In the ED patient administered insulin, zofran, NS. Past Medical History Past Medical History (Chronic Problems): Chronic Problems (Last Updated 08/20/18 @ 11:18 by Adriana Mulligan) Cannabis use in remission (Chronic) History of hepatitis A (Chronic) Asthma (Chronic) Type I diabetes mellitus (Chronic) Medical History: Medical History (Last Updated 08/20/18 @ 11:18 by Adriana Mulligan) Asthma J45.909 Diabetes type 1, controlled E10.9 Dx : age 8 Last exacerbation : DKA : 07/07 Hypoglycemic episode : never ER visit : 07/07 Allergies Penicillins Allergy (Verified 06/12/19 08:59) Unknown Sulfa (Sulfonamide Antibiotics) Allergy (Verified 06/12/19 08:59) Unknown prednisone Adverse Reaction (Verified 06/12/19 08:59) Vomiting bee stings Allergy (Severe, Uncoded 06/12/19 08:59) Anaphylaxis Home Medications: Ambulatory Orders Medication Instructions Recorded Albuterol Sulfate [Ventolin Hfa] 2 puff INHALATION Q4H PRN PRN 08/25/18 Insulin Glargine,Hum.rec.anlog 75 unit SUBCUT QHS 11/10/19 [Basaglar Kwikpen U-100] Insulin Lispro [Insulin Lispro 0 unit SQ TID 11/10/19 Kwikpen U-100] Surgical History: Surgical History (Last Reviewed 08/20/18 @ 10:59 by Adriana Mulligan) History of placement of ear tubes Z86.69 Surgical History: tonsillectomy, - - control insertion and ear tubes, T+A. 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 Tobacco Use: - - Previous cannabis usage, quit 1 week prior to current admission, notes she did smoke the cannabis. Alcohol: Occasional Drugs: Marijuana - *Family History Paternal Family History: Family History (Last Reviewed 08/20/18 @ 10:59 by Adriana Mulligan) Grandmother Diabetes Sister Asthma Brother Asthma History Items: Diabetes Sibling Family History: Family History (Last Reviewed 08/20/18 @ 10:59 by Adriana Mulligan) Grandmother Diabetes Sister Asthma Brother Asthma History Items: Asthma Maternal Family History: Family History (Last Reviewed 08/20/18 @ 10:59 by Adriana Mulligan) Grandmother Diabetes Sister Asthma Brother Asthma History Items: Heart Disease Review of Systems Constitutional: Reports: Anorexia, Malaise, Weakness, Fatigue. Denies: Chills, Fever, Weight Change HEENT: Denies: Head Aches, Sinus Congestion, Sinus Drainage Cardiovascular: Denies: Chest Pain, Palpitations Respiratory: Denies: Cough, Shortness of breath at rest, Sputum production Gastrointestinal: Reports: Nausea. Denies: Abdominal Pain, Vomiting Genitourinary: Denies: Dysuria Musculoskeletal: Denies: Joint Pain, Joint Tenderness Skin: Denies: Rash, Wounds Neurological: Denies: Numbness, Tingling, Focal weakness Psychiatric: Denies: Anxiety, Depression, Homicidal Ideations, Suicidal Ideations Hematologic/ Lymphatic: Denies: Easy Bruising, Easy Bleeding VTE Information - Inpt Only VTE Present on Admission: No VTE Mechan Device Prophylaxis: None VTE Pharm Prophylaxis ordered?: No Reason prophylaxis not ordered:: Treatment Not Indicated Patient Problems: Active and Suspected Problems (Last Updated 08/20/18 @ 11:18 by Adriana Mulligan) DKA (diabetic ketoacidoses) (Acute) Subjective: Seated upright in ICU bed, notes improved since initial ED presentation status post initiation of insulin drip and aggressive IV fluids. Objective: Physical Examination: General: awake, alert, oriented x 3 and cooperative, seated upright in the ICU bed, notes improved since initial ED presentation status post insulin drip initiation and IV fluids. Skin: normal color, turgor, no icterus, cyanosis kept occasional abrasion to the face likely picked acne. HEENT: AT/NC, EOMI, PERRLA, dry MM, no carotid bruits or JVD noted. Lungs: Diminished BS, > bases, mild decrease BL bases, no rales, ronchi or wheezing. Heart: Tachycardic with regular rhythm; no gallop, rub audible. Abdomen: soft, thin habitus, NTTP, ND, normal BS, no HSM. Extremities: no cyanosis, clubbing, or edema. Neurological: patient awake, alert, oriented x 3; cognitive function appears baseline intact; pupils equally reactive to light and accomodation; cranial nerves II-XII grossly normal, moving all 4 extremities, no focal deficits, strength moderately globally decreased secondary to acute presentation. Psychiatric: affect appears fatigued, but improving, talkative, no acute evidence of depressive or anxiety feelings. - Physical Exam Vitals/I&O's: Vital Signs Temp Pulse Resp BP Pulse Ox 97 F L 122 H 22 H 120/85 H 98 11/10/19 10:51 11/10/19 11:40 11/10/19 11:40 11/10/19 10:51 11/10/19 11:40 Oxygen Delivery Method Room Air Weight: 140 lb Body Mass Index (BMI) 28.3 Finger Stick Blood Glucose 580 Laboratory Results 11/10/19 10:57: POC Glucose > 500 H* 11/10/19 11:15: WBC 22.6 H, RBC 5.91 H, Hgb 17.2 H, Hct 52.8 H, MCV 89.3, MCH 29.1, MCHC 32.6, RDW Std Deviation 41.0, RDW Coeff of Marilynn 12.6, Plt Count 496 H, MPV 9.5, Immature Gran % (Auto) 1.200 H, Neut % (Auto) 89.0 H, Lymph % (Auto) 6.0 L, [place] % (Auto) 3.0, Eos % (Auto) 0.2, Baso % (Auto) 0.6, Absolute Neuts (auto) 20.1 H, Absolute Lymphs (auto) 1.36, Nucleated RBC % 0 11/10/19 11:15: Sodium 132 L, Potassium 4.5, Chloride 94 L, Carbon Dioxide 12.0 L, Anion Gap 26 H, BUN 19 H, Creatinine 1.26 H, Estim Creat Clear Calc 70.80, Est GFR (MDRD) Af Amer 69, Est GFR (MDRD) Non-Af 57 L, BUN/Creatinine Ratio 15.1, Glucose 633 H*, Calcium 9.8 11/10/19 11:15: Acetone Level Pending 11/10/19 11:43: VBG pH 7.01 L*, VBG pO2 39, VBG O2 Sat (Calc) 49 L, VBG O2 Content 11 L, VBG Base Excess -21 L, POC Mix VBG pCO2 Pt Tmp 39.7 L Current Medications Sodium Chloride () 1,000 mls @ 1,000 mls/hr IV .Q1H ADARSH Stop: 11/10/19 13:04 Last Admin: 11/10/19 11:19 Dose: 1,000 mls/hr Documented by: Insulin Human Lispro 100 unit/ (Sodium Chloride) 100 mls @ 6.35 mls/hr IV .[id number] [facility]; Protocol Assessment/Plan All Active Problems (Last Updated 08/20/18 @ 11:18 by Adriana Mulligan) DKA (diabetic ketoacidoses) (Acute) Acute hepatitis A virus infection (Acute) Hepatitis (Acute) Acute liver injury (Acute) Leucocytosis (Acute) The patient is a 19 y/o F w/ PMHx: Hx Hepatitis A, Asthma, Diabetes mellitus type I with freestyle implant, Cannabis usage who presents to the [facility] ED on 11/10/19 with history of awakening at 5 AM with significant nausea without emesis but inability to have any oral intake since this AM and mild back discomfort with no other associated symptoms including abdominal pain, cramping, diarrhea, dyspnea, cough noting that she has been unable to check her blood sugars over the last 2 days at least. 1. DKA w/ Diabetes mellitus type I: Work-up in the ED included T 97, heart rate initially 150 with improvement to 122 with hydration, BP 08/13/1984, respiratory rate 22, 98% on room air, CBC with WC 22.6, hemoglobin 17.2, platelet 496 with a left shift, VBG with pH 7.01, O2 49, BMP with sodium 132, chloride 94, carbon oxide 12, anion gap 26, BUN/creatinine /1.26, glucose 633, acetone moderate, urinalysis with no evidence of UTI with positive ketones and glucose 1000. In the ED patient administered insulin, zofran, NS. Will admit to the ICU, continue on insulin drip, check serial K+, glucose w/ IVF changes pending these levels, serial chemistry, obtain mag, phos daily w/ repletion as needed, transition to home SC regimen when gap closed w/ overlap on drip, nutrition consultation. Encouraged diet and insulin regimen compliance. Given VBG with significant acidosis will also administer bicarb. Given presentation with significant acidosis we will also request consultation with party plan salesperson. 2. Acute kidney injury: Secondary to acute presentation #1. Admission BUN/Cr /1.26, prior baseline creatinine noted to be 0.5-0.6. Will hydrate, hold nephrotoxic medications and repeat chemistry in AM. If no improvement would plan FeNa assessment. 3. Chronic asthma: We will maintain head of bed, I-S, PRN albuterol regimen. 4. Cannabis usage: Notes she quit smoking cannabis approximately 1 week prior primarily secondary to cost. Encouraged her to continue cessation especially given underlying asthmatic disease. 5. GERD: We will maintain on famotidine. 6. DVT prophylaxis: Low risk, encourage ambulation. 7. CODE STATUS: Full code. Inpatient E&M: 37704 Init Hosp L3
[2019-11-10 12:02] LABS: Blood Gas Specimen Type VEN; SITE OTHER
[2019-11-10 12:03] LABS: FI02 21; Time Given 1143
[2019-11-10 12:04] LABS: VBG pH 7.01 (7.32-7.42)
[2019-11-10 12:30] LABS: Bedside Glucose > 500 mg/dL (70-110)
[2019-11-10 12:30] LABS: Bedside Glucose > 500 mg/dL (70-110)
[2019-11-10 12:45] LABS: Bacteria 0 SEEN /hpf (None Seen); Mucous, Urine 0 SEEN /hpf (<or=2+); Red Blood Cells-Urine 0 SEEN /hpf (0-5); Squamous Epithelial Cells - UA 0 SEEN /hpf (5-10); White Blood Cells 0 SEEN /hpf (0-5)
[2019-11-10 12:47] LABS: Color, Urine Yellow (Yellow); Glucose, Dipstick 1000 mg/dl (Normal); Leukocyte Esterase-Dipstick Negative /ul (Negative); Nitrite-Dipstick Negative (Negative); Occult Blood-Urine Negative /ul (Negative); Protein-Dipstick 30 mg/dl (Negative); Urine Bilirubin Dipstick Negative (Negative); Urine Clarity Clear (Clear); Urine Urobilinogen Normal (Normal)
[2019-11-10 12:49] LABS: Ketone-Dipstick 150 mg/dl (Negative)
--- NOTE | 2019-11-10 13:49 | PCM.CON.CC ---
Reason for Consult Date of Consultation: 11/10/19 Reason for Consultation: Diabetic ketoacidosis History of Present Illness: The patient is a 19-year-old female, with a history as outlined below, who presented to the emergency department with hyperglycemia, nausea and vomiting. The patient does have a history of type 1 diabetes mellitus and states that she is followed by an airport screener in [place]. She was last seen by that provider approximately 6 months ago. She currently has an indwelling blood glucometer that operates through Internet connection and smart phone to provide her with her blood glucose levels. However, the patient has been without Internet access for the last 2 days and has therefore been able to regularly check her blood sugars. She has continued to take her basal insulin but has not given herself any sliding scale coverage. She does report the presence of polyuria and stated that her nausea and vomiting began this morning. The patient was last admitted to the hospital in May 2019 with DKA. Hemoglobin A1c at that time was noted to be almost 13. On presentation to the emergency department, the patient was noted to be afebrile, but was tachycardic and tachypneic. She was, nevertheless, maintaining appropriate oxygen saturations on room air. Initial laboratory evaluation revealed an elevated white blood cell count to 23,000. Platelet count was elevated to 496,000. Chemistry profile was notable for a sodium of 132, chloride of 94, bicarbonate of 12, anion gap of 26 and creatinine of 1.26. Glucose was elevated to 633. A moderate serum acetone level was also noted. The patient received supplemental IV fluid hydration and was started on a continuous insulin infusion. The patient was then admitted to the medical intensive care unit for further management of her DKA. Past Medical History Past Medical History (Chronic Problems): Chronic Problems (Last Updated 08/20/18 @ 11:18 by Adriana Mulligan) Cannabis use in remission (Chronic) History of hepatitis A (Chronic) Asthma (Chronic) Type I diabetes mellitus (Chronic) Medical History: Medical History (Last Updated 08/20/18 @ 11:18 by Adriana Mulligan) Asthma J45.909 Diabetes type 1, controlled E10.9 Dx : age 8 Last exacerbation : DKA : 07/07 Hypoglycemic episode : never ER visit : 07/07 Allergies Penicillins Allergy (Verified 11/10/19 12:01) Unknown Sulfa (Sulfonamide Antibiotics) Allergy (Verified 11/10/19 12:01) Unknown prednisone Adverse Reaction (Verified 11/10/19 12:01) Vomiting bee stings Allergy (Severe, Uncoded 11/10/19 12:01) Anaphylaxis Home Medications: Ambulatory Orders Medication Instructions Recorded Albuterol Sulfate [Ventolin Hfa] 2 puff INHALATION Q4H PRN PRN 08/25/18 Insulin Glargine,Hum.rec.anlog 75 unit SUBCUT QHS 11/10/19 [Basaglar Kwikpen U-100] Insulin Lispro [Insulin Lispro 0 unit SQ TID 11/10/19 Kwikpen U-100] Surgical History: Surgical History (Last Reviewed 08/20/18 @ 10:59 by Adriana Mulligan) History of placement of ear tubes Z86.69 Surgical History: tonsillectomy, - - status post control insertion Psychiatric History: No 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 Smoking Status: Never smoker - *Family History Paternal Family History: Family History (Last Reviewed 08/20/18 @ 10:59 by Adriana Mulligan) Grandmother Diabetes Sister Asthma Brother Asthma History Items: Diabetes Sibling Family History: Family History (Last Reviewed 08/20/18 @ 10:59 by Adriana Mulligan) Grandmother Diabetes Sister Asthma Brother Asthma History Items: Asthma Maternal Family History: Family History (Last Reviewed 08/20/18 @ 10:59 by Adriana Mulligan) Grandmother Diabetes Sister Asthma Brother Asthma History Items: Heart Disease Review of Systems Constitutional: Denies: Chills, Fever Eyes: Denies: Blurred vision, Double vision HEENT: Denies: Head Aches, Sinus Congestion, Sinus Drainage Cardiovascular: Denies: Chest Pain, Palpitations Respiratory: Denies: Cough, Shortness of breath at rest, Sputum production Gastrointestinal: Reports: Nausea, Vomiting Genitourinary: Reports: Frequency. Denies: Dysuria Musculoskeletal: Denies: Joint Pain, Joint Tenderness Skin: Denies: Rash, Wounds Neurological: Denies: Numbness, Tingling, Focal weakness Psychiatric: Denies: Anxiety, Depression, Homicidal Ideations, Suicidal Ideations Hematologic/ Lymphatic: Denies: Easy Bruising, Easy Bleeding Patient Problems: Active and Suspected Problems (Last Updated 08/20/18 @ 11:18 by Adriana Mulligan) DKA (diabetic ketoacidoses) (Acute) Objective: The patient's most recent lab work, culture data and imaging studies have all been personally reviewed. - Physical Exam Vitals/I&O's: Vital Signs Temp Pulse Resp BP Pulse Ox 98.1 F 136 H 20 H 127/61 H 100 11/10/19 12:44 11/10/19 12:44 11/10/19 12:44 11/10/19 12:44 11/10/19 12:44 Oxygen Delivery Method Room Air Weight: 122 lb 5.705 oz Body Mass Index (BMI) 24.7 Finger Stick Blood Glucose 436 Intake and Output for Last 24 Hours 11/08/19 11/09/19 11/10/19 23:59 23:59 23:59 Intake Total Balance General: Alert, Cooperative, No apparent distress HEENT: Atraumatic, Normocephalic Oral: Dry Mucosa Neck: Supple, No Nodes, Trachea Midline Lungs: Normal air movement, No rhonchi, No wheeze, No rales Cardiovascular: Normal S1, Normal S2, No murmurs, Tachycardic Abdomen: Bowel Sounds Present, Soft, Non Tender Extremities: No clubbing, No cyanosis, No edema Skin: No breakdown Musculoskeletal: No Tenderness to Palpation of Joints or Extremities, No Muscle Wasting Lymphatic: No Cervical, Supraclavicular, or Inguinal Adenopathy Neurological: Cranial nerves II-XII grossly intact, Neuro grossly intact Psych/Mental Status: Normal Affect, Appropriate Labs (Last 48 Hours) 11/10/19 11/10/19 11/10/19 10:57 11:15 11:15 WBC 22.6 H RBC 5.91 H Hgb 17.2 H Hct 52.8 H MCV 89.3 MCH 29.1 MCHC 32.6 RDW Std Deviation 41.0 RDW Coeff of Marilynn 12.6 Plt Count 496 H MPV 9.5 Immature Gran % (Auto) 1.200 H Neut % (Auto) 89.0 H Lymph % (Auto) 6.0 L [place] % (Auto) 3.0 Eos % (Auto) 0.2 Baso % (Auto) 0.6 Absolute Neuts (auto) 20.1 H Absolute Lymphs (auto) 1.36 Nucleated RBC % 0 Specimen Type Sample Site O2 % VBG pH VBG pO2 VBG O2 Sat (Calc) VBG O2 Content VBG Base Excess POC Mix VBG pCO2 Pt Tmp Blood Gas Notified Whom Blood Gas Notified Time Sodium 132 L Potassium 4.5 Chloride 94 L Carbon Dioxide 12.0 L Anion Gap 26 H BUN 19 H Creatinine 1.26 H Estim Creat Clear Calc 70.80 Est GFR (MDRD) Af Amer 69 Est GFR (MDRD) Non-Af 57 L BUN/Creatinine Ratio 15.1 Glucose 633 H* Hemoglobin A1c Calcium 9.8 Phosphorus Magnesium Urine Color Urine Clarity Urine pH Ur Specific [place] Urine Protein Urine Glucose (UA) Urine Ketones Urine Occult Blood Urine Nitrite Urine Bilirubin Urine Urobilinogen Ur Leukocyte Esterase Urine RBC Urine WBC Ur Squamous Epith Cells Urine Bacteria Urine Mucus Acetone Level POC Glucose > 500 H* 11/10/19 11/10/19 11/10/19 11:15 11:15 11:15 WBC RBC Hgb Hct MCV MCH MCHC RDW Std Deviation RDW Coeff of Marilynn Plt Count MPV Immature Gran % (Auto) Neut % (Auto) Lymph % (Auto) [place]yer % (Auto) Eos % (Auto) Baso % (Auto) Absolute Neuts (auto) Absolute Lymphs (auto) Nucleated RBC % Specimen Type Sample Site O2 % VBG pH VBG pO2 VBG O2 Sat (Calc) VBG O2 Content VBG Base Excess POC Mix VBG pCO2 Pt Tmp Blood Gas Notified Whom Blood Gas Notified Time Sodium Potassium Chloride Carbon Dioxide Anion Gap BUN Creatinine Estim Creat Clear Calc Est GFR (MDRD) Af Amer Est GFR (MDRD) Non-Af BUN/Creatinine Ratio Glucose Hemoglobin A1c Pending Calcium Phosphorus Pending Magnesium Pending Urine Color Urine Clarity Urine pH Ur Specific [place] Urine Protein Urine Glucose (UA) Urine Ketones Urine Occult Blood Urine Nitrite Urine Bilirubin Urine Urobilinogen Ur Leukocyte Esterase Urine RBC Urine WBC Ur Squamous Epith Cells Urine Bacteria Urine Mucus Acetone Level MODERATE H POC Glucose 11/10/19 11/10/19 11/10/19 11:43 11:53 12:19 WBC RBC Hgb Hct MCV MCH MCHC RDW Std Deviation RDW Coeff of Marilynn Plt Count MPV Immature Gran % (Auto) Neut % (Auto) Lymph % (Auto) [place]yer % (Auto) Eos % (Auto) Baso % (Auto) Absolute Neuts (auto) Absolute Lymphs (auto) Nucleated RBC % Specimen Type LUIS Sample Site OTHER O2 % 21 VBG pH 7.01 L* VBG pO2 39 VBG O2 Sat (Calc) 49 L VBG O2 Content 11 L VBG Base Excess -21 L POC Mix VBG pCO2 Pt Tmp 39.7 L Blood Gas Notified Whom ED MD Blood Gas Notified Time 1143 Sodium Potassium Chloride Carbon Dioxide Anion Gap BUN Creatinine Estim Creat Clear Calc Est GFR (MDRD) Af Amer Est GFR (MDRD) Non-Af BUN/Creatinine Ratio Glucose Hemoglobin A1c Calcium Phosphorus Magnesium Urine Color Urine Clarity Urine pH Ur Specific [place] Urine Protein Urine Glucose (UA) Urine Ketones Urine Occult Blood Urine Nitrite Urine Bilirubin Urine Urobilinogen Ur Leukocyte Esterase Urine RBC Urine WBC Ur Squamous Epith Cells Urine Bacteria Urine Mucus Acetone Level POC Glucose > 500 H* > 500 H* 11/10/19 12:30 WBC RBC Hgb Hct MCV MCH MCHC RDW Std Deviation RDW Coeff of Marilynn Plt Count MPV Immature Gran % (Auto) Neut % (Auto) Lymph % (Auto) [place]yer % (Auto) Eos % (Auto) Baso % (Auto) Absolute Neuts (auto) Absolute Lymphs (auto) Nucleated RBC % Specimen Type Sample Site O2 % VBG pH VBG pO2 VBG O2 Sat (Calc) VBG O2 Content VBG Base Excess POC Mix VBG pCO2 Pt Tmp Blood Gas Notified Whom Blood Gas Notified Time Sodium Potassium Chloride Carbon Dioxide Anion Gap BUN Creatinine Estim Creat Clear Calc Est GFR (MDRD) Af Amer Est GFR (MDRD) Non-Af BUN/Creatinine Ratio Glucose Hemoglobin A1c Calcium Phosphorus Magnesium Urine Color Yellow Urine Clarity Clear Urine pH 5.0 Ur Specific [place] 1.020 Urine Protein 30 H Urine Glucose (UA) 1000 H Urine Ketones 150 H Urine Occult Blood Negative Urine Nitrite Negative Urine Bilirubin Negative Urine Urobilinogen Normal Ur Leukocyte Esterase Negative Urine RBC 0 SEEN Urine WBC 0 SEEN Ur Squamous Epith Cells 0 SEEN Urine Bacteria 0 SEEN Urine Mucus 0 SEEN Acetone Level POC Glucose Current Medications Acetaminophen (Tylenol) 650 mg PO Q6H PRN PRN PRN Reason: Pain Score 1-10/Temp > 100.7 F Al Hydroxide/Mg Hydroxide (Mylanta Ii) 30 ml PO Q6H PRN PRN PRN Reason: Gastric Burning Albuterol Sulfate (Ventolin Aerosols) 2.5 mg INHALATION Q2H PRN PRN PRN Reason: Dyspnea, wheezing Dextrose (D50w Syringe) 0 gm IV X1 PRN; Protocol PRN Reason: HYPOGLYCEMIA Famotidine (Pepcid) 20 mg PO BID ADARSH Glucagon () 1 mg IM .X1 PRN PRN Reason: Hypoglycemia Guaifenesin (Robitussin) 10 ml PO Q4H PRN PRN PRN Reason: COUGH Hydralazine HCl (Apresoline Iv) 10 mg IV Q4H PRN PRN PRN Reason: SBP > 160 Insulin Human Lispro 100 unit/ (Sodium Chloride) 100 mls @ 5.55 mls/hr IV .Q18H2M ADARSH; Protocol Last Titration: 11/10/19 13:33 Dose: 0.05 units/kg/hr, 2.8 mls/hr Documented by: Sodium Chloride () 1,000 mls @ 999 mls/hr IV .Q1H1M ONE Stop: 11/10/19 14:16 Sodium Chloride () 1,000 mls @ 150 mls/hr IV .Q6H40M [facility] Magnesium Hydroxide (Milk Of Magnesia) 30 ml PO DAILY PRN PRN PRN Reason: Constipation Melatonin (Melatonin) 3 mg PO QHS PRN PRN PRN Reason: INSOMNIA Morphine Sulfate () 2 mg IV Q3H PRN PRN PRN Reason: Pain Score 6-10/10 Ondansetron HCl (Zofran) 4 mg IV Q8H PRN PRN PRN Reason: NAUSEA/VOMITING Oxycodone HCl (Oxyir) 5 mg PO Q4H PRN PRN PRN Reason: Pain Score 4-5/10 Prochlorperazine Edisylate (Compazine Iv) 5 mg IV Q4H PRN PRN PRN Reason: Breakthrough Nausea/Vomiting Psyllium Hydrophilic Mucilloid (Metamucil) 1 packet PO DAILY PRN PRN PRN Reason: Constipation Senna/Docusate Sodium (Senokot-S, Marisabel-Colace) 2 tablet PO BID PRN PRN Reason: Constipation Throat Lozenges (Cepacol Sore Throat Lozenge) 1 lozenge MUCOUS MEM Q2H PRN PRN PRN Reason: SORE THROAT Assessment/Plan Active and Suspected Problems (Last Updated 08/20/18 @ 11:18 by Adriana Mulligan) DKA (diabetic ketoacidoses) (Acute) RECOMMENDATIONS: 1. Continuous insulin infusion and supplemental IV fluids per DKA protocol. 2. Aggressive electrolyte repletion. 3. Transition to basal insulin and sliding scale coverage, once anion gap has been closed x2. 4. Diabetic education to be provided. 5. Patient to remain n.p.o. until anion gap is closed. IMPRESSIONS: 1. Diabetic ketoacidosis secondary to outpatient noncompliance The patient reports that she has been unable to check her blood sugars for the last 2 days due to a lack of Internet connectivity. However, in May 2019 the patient had a hemoglobin A1c of nearly 13. She has not seen her airport screener for 6 months. For now, the patient will be continued on supplemental IV fluid hydration per protocol along with a continuous insulin infusion until her anion gap has been closed x2. After this occurs, the patient will be transitioned to basal insulin and sliding scale coverage. The patient is to remain n.p.o. for now. 2. Acute kidney injury Likely prerenal in etiology and related to intravascular volume depletion from osmotic diuresis coupled with GI losses. The patient will receive supplemental IV fluid hydration accordingly. Continue to monitor urine output. There is no current indication for renal replacement therapy. This note was generated with Wine[employer] software. It may contain incorrect words, spelling, and punctuation that were not noted in checking the note before signing. Inpatient E&M: 65701 Init Hosp L3
[2019-11-10] MEDS: Sodium Bicarbonate 8.4% 50 ML Syringe 50 MEQ IV (13:55)
[2019-11-10] MEDS: 0.9% Normal Saline 1,000 ML 150 ML IV (14:01)
[2019-11-10] MEDS: Lactated Ringers 1,000 ML 999 ML IV ×2 (14:02→17:21)
[2019-11-10 14:12] LABS: Magnesium 2.5 mg/dL (1.6-2.6); Phosphorus 8.5 mg/dL (2.5-4.9)
[2019-11-10 14:30] LABS: Hemoglobin A1c 12.5 % (4.2-6.3)
[2019-11-10 14:40] LABS: Bedside Glucose 285 mg/dL (70-110)
[2019-11-10 14:50] LABS: Bedside Glucose 436 mg/dL (70-110)
[2019-11-10 15:40] LABS: Bedside Glucose 243 mg/dL (70-110)
[2019-11-10 16:09] LABS: Anion Gap 15 (5-15); BUN 13 mg/dL (7-18); BUN/Creat Ratio 19.2 RATIO (10-20); Calcium,Total 8.3 mg/dL (8.5-10.1); Chloride 111 mmol/L (98-107); Creatinine, Serum 0.68 mg/dL (0.55-1.02); EST Glomerular Filtration Rate 116 mL/min (>60); Est Glom Filt Rate - Afr Amer 140 mL/min (>60); Estimated Creatinine Clearance 103.51 ml/min; Glucose 267 mg/dL (74-106); Potassium 4.2 mmol/L (3.5-5.1); Sodium Level 140 mmol/L (136-145)
[2019-11-10 16:50] LABS: Bedside Glucose 195 mg/dL (70-110)
[2019-11-10 17:40] LABS: Bedside Glucose 159 mg/dL (70-110)
[2019-11-10 18:56] LABS: Bedside Glucose 183 mg/dL (70-110)
[2019-11-10 20:01] LABS: Anion Gap 6 (5-15); BUN 11 mg/dL (7-18); BUN/Creat Ratio 16.2 RATIO (10-20); Chloride 112 mmol/L (98-107); Creatinine, Serum 0.68 mg/dL (0.55-1.02); EST Glomerular Filtration Rate 116 mL/min (>60); Est Glom Filt Rate - Afr Amer 140 mL/min (>60); Estimated Creatinine Clearance 103.51 ml/min; Glucose 147 mg/dL (74-106); Potassium 3.7 mmol/L (3.5-5.1); Sodium Level 140 mmol/L (136-145)
[2019-11-10 20:31] LABS: Bedside Glucose 92 mg/dL (70-110)
[2019-11-10] MEDS: Dextrose 50%-Water 25 GM/50 ML DISP.SYRIN IV (21:25)
[2019-11-10] MEDS: 0.9% Saline Lock 10 ML Syringe IV ×2 (21:25→23:39)
[2019-11-10] MEDS: Famotidine 20 MG Tablet PO (21:26)
[2019-11-10 21:46] LABS: Bedside Glucose 58 mg/dL (70-110)
[2019-11-10 21:46] LABS: Bedside Glucose 140 mg/dL (70-110)
[2019-11-10 21:50] LABS: Bedside Glucose 185 mg/dL (70-110)
[2019-11-10 22:35] LABS: Bedside Glucose 152 mg/dL (70-110)
[2019-11-10 23:35] LABS: Bedside Glucose 100 mg/dL (70-110)
[2019-11-10] MEDS: Acetaminophen 325 MG Tablet 650 MG PO (23:38)
[2019-11-11] VITALS (14 sets, daily range): BP systolic 95–129; BP diastolic 56–74; PULSE 89–127; RESP 17–23; TEMP 36.9–37.4; O2SAT 98–99
[2019-11-11 00:09] LABS: Anion Gap 7 (5-15); BUN 10 mg/dL (7-18); Calcium,Total 8.1 mg/dL (8.5-10.1); Chloride 112 mmol/L (98-107); Creatinine, Serum 0.59 mg/dL (0.55-1.02); EST Glomerular Filtration Rate 137 mL/min (>60); Est Glom Filt Rate - Afr Amer 165 mL/min (>60); Estimated Creatinine Clearance 119.29 ml/min; Glucose 113 mg/dL (74-106); Potassium 3.4 mmol/L (3.5-5.1); Sodium Level 140 mmol/L (136-145)
[2019-11-11] MEDS: Potassium Chloride 10mEq/100mL 10 MEQ/100 ML IV.SOLN. 100 MEQ IV BOLUS ×4 (00:32→09:19)
[2019-11-11 00:40] LABS: Bedside Glucose 96 mg/dL (70-110)
[2019-11-11 01:31] LABS: Bedside Glucose 171 mg/dL (70-110)
[2019-11-11 03:26] LABS: Bedside Glucose 145 mg/dL (70-110)
[2019-11-11 05:14] LABS: ALB/GLOB Ratio 1.1 RATIO (0.9-2.4); AST(SGOT) 13 U/L (15-37); Alanine Aminotransfer ALT/SGPT 17 U/L (13-56); Alkaline Phosphatase 65 U/L (45-117); Anion Gap 5 (5-15); BUN 11 mg/dL (7-18); BUN/Creat Ratio 20.9 RATIO (10-20); Calcium,Total 7.9 mg/dL (8.5-10.1); Chloride 111 mmol/L (98-107); Creatinine, Serum 0.53 mg/dL (0.55-1.02); EST Glomerular Filtration Rate 155 mL/min (>60); Est Glom Filt Rate - Afr Amer 187 mL/min (>60); Estimated Creatinine Clearance 133.06 ml/min; Globulin 2.8 g/dL (2.2-4.2); Glucose 92 mg/dL (74-106); Potassium 3.2 mmol/L (3.5-5.1); Protein, Total 5.8 g/dL (6.4-8.2); Sodium Level 139 mmol/L (136-145)
[2019-11-11 05:21] LABS: Absolute Lymphocyte Count 2.83 X10^3/uL (0.83-4.51); Absolute Neutrophil Count 7.9 X10^3/uL (2.0-7.7); Basophil# 0.02 X10^3/uL; Basophil% 0.2 % (0-1); Eosinophil# 0.07 X10^3/uL; Eosinophils% 0.6 % (0-5); Hematocrit 35.9 % (37-47); Hemoglobin 12.4 g/dL (12.0-15.0); Lymphocyte # 2.83 X10^3/ul (4.0); Lymphocyte % 24.6 % (19-41); Mean Corp Hgb Conc 34.5 g/dL (32-36); Mean Corpuscular Hgb 29.4 pg (27.0-32.0); Mean Corpuscular Volume 85.1 fL (81-99); Mean Platelet Vol. 8.9 fl (6.2-12.0); Monocyte% 5.2 % (0-10); NRBC Flagged by Analyzer 0 % (0-5); Neutrophil # 7.93 X10^3/uL (2.7-7.7); Neutrophil % 69.1 % (47-70); Platelet Count 328 K/mm3 (150-450); RBC Distribution Width CV 13.2 % (11.6-14.6); Red Blood Count 4.22 M/mm3 (4.2-5.4); White Blood Count 11.5 K/mm3 (4.4-11.0)
--- NOTE | 2019-11-11 05:43 | PN_ITS ---
Subjective: The patient was seen and examined at the bedside this morning. Events from the last 24 hours have been reviewed. The patient is currently afebrile, hemodynamically stable and maintaining appropriate oxygen saturations on room air. Potassium is low this morning at 3.2. Creatinine has returned back to baseline. The patient's anion gap has been closed now on several occasions. She was subsequently transition from continuous insulin infusion to basal and sliding scale coverage. Objective: The patient's most recent lab work, culture data and imaging studies have all been personally reviewed. General: Alert, Cooperative, No apparent distress HEENT: Atraumatic, PERRLA, Normocephalic Oral: No Gingival or Mucosal Lesions/ Ulcerations Neck: Supple, No Nodes, Trachea Midline Lungs: Normal air movement, No rhonchi, No wheeze, No rales Cardiovascular: Regular rate, Regular Rhythm, Normal S1, Normal S2, No murmurs Abdomen: Bowel Sounds Present, Soft, Non Tender Extremities: No clubbing, No cyanosis, No edema Skin: No breakdown Musculoskeletal: No Tenderness to Palpation of Joints or Extremities Lymphatic: No Cervical, Supraclavicular, or Inguinal Adenopathy Neurological: Cranial nerves II-XII grossly intact, Neuro grossly intact Psych/Mental Status: Normal Affect, Appropriate Vital Signs Temp Pulse Resp BP Pulse Ox 99.4 F H 89 18 102/65 99 11/11/19 04:00 11/11/19 05:00 11/11/19 05:00 11/11/19 05:00 11/11/19 05:00 Oxygen Delivery Method Room Air Weight: 110 lb 10.753 oz Body Mass Index (BMI) 22.3 Finger Stick Blood Glucose 171 Intake and Output for Last 24 Hours 11/09/19 11/10/19 11/11/19 23:59 23:59 23:59 Intake Total 5417.44 / 5417.44 521.23 / 521.23 Output Total 850 / 850 Balance 4567.44 / 4567.44 521.23 / 521.23 Labs (Last 48 Hours) 11/10/19 11/10/19 11/10/19 10:57 11:15 11:15 WBC 22.6 H RBC 5.91 H Hgb 17.2 H Hct 52.8 H MCV 89.3 MCH 29.1 MCHC 32.6 RDW Std Deviation 41.0 RDW Coeff of Marilynn 12.6 Plt Count 496 H MPV 9.5 Immature Gran % (Auto) 1.200 H Neut % (Auto) 89.0 H Lymph % (Auto) 6.0 L [place] % (Auto) 3.0 Eos % (Auto) 0.2 Baso % (Auto) 0.6 Absolute Neuts (auto) 20.1 H Absolute Lymphs (auto) 1.36 Nucleated RBC % 0 Specimen Type Sample Site O2 % VBG pH VBG pO2 VBG O2 Sat (Calc) VBG O2 Content VBG Base Excess POC Mix VBG pCO2 Pt Tmp Blood Gas Notified Whom Blood Gas Notified Time Sodium 132 L Potassium 4.5 Chloride 94 L Carbon Dioxide 12.0 L Anion Gap 26 H BUN 19 H Creatinine 1.26 H Estim Creat Clear Calc 70.80 Est GFR (MDRD) Af Amer 69 Est GFR (MDRD) Non-Af 57 L BUN/Creatinine Ratio 15.1 Glucose 633 H* Hemoglobin A1c Calcium 9.8 Phosphorus Magnesium Total Bilirubin AST ALT Alkaline Phosphatase Total Protein Albumin Globulin Albumin/Globulin Ratio Urine Color Urine Clarity Urine pH Ur Specific [place] Urine Protein Urine Glucose (UA) Urine Ketones Urine Occult Blood Urine Nitrite Urine Bilirubin Urine Urobilinogen Ur Leukocyte Esterase Urine RBC Urine WBC Ur Squamous Epith Cells Urine Bacteria Urine Mucus Acetone Level POC Glucose > 500 H* 11/10/19 11/10/19 11/10/19 11:15 11:15 11:15 WBC RBC Hgb Hct MCV MCH MCHC RDW Std Deviation RDW Coeff of Marilynn Plt Count MPV Immature Gran % (Auto) Neut % (Auto) Lymph % (Auto) [place] % (Auto) Eos % (Auto) Baso % (Auto) Absolute Neuts (auto) Absolute Lymphs (auto) Nucleated RBC % Specimen Type Sample Site O2 % VBG pH VBG pO2 VBG O2 Sat (Calc) VBG O2 Content VBG Base Excess POC Mix VBG pCO2 Pt Tmp Blood Gas Notified Whom Blood Gas Notified Time Sodium Potassium Chloride Carbon Dioxide Anion Gap BUN Creatinine Estim Creat Clear Calc Est GFR (MDRD) Af Amer Est GFR (MDRD) Non-Af BUN/Creatinine Ratio Glucose Hemoglobin A1c 12.5 H Calcium Phosphorus 8.5 H Magnesium 2.5 Total Bilirubin AST ALT Alkaline Phosphatase Total Protein Albumin Globulin Albumin/Globulin Ratio Urine Color Urine Clarity Urine pH Ur Specific [place] Urine Protein Urine Glucose (UA) Urine Ketones Urine Occult Blood Urine Nitrite Urine Bilirubin Urine Urobilinogen Ur Leukocyte Esterase Urine RBC Urine WBC Ur Squamous Epith Cells Urine Bacteria Urine Mucus Acetone Level MODERATE H POC Glucose 11/10/19 11/10/19 11/10/19 11:43 11:53 12:19 WBC RBC Hgb Hct MCV MCH MCHC RDW Std Deviation RDW Coeff of Marilynn Plt Count MPV Immature Gran % (Auto) Neut % (Auto) Lymph % (Auto) [place] % (Auto) Eos % (Auto) Baso % (Auto) Absolute Neuts (auto) Absolute Lymphs (auto) Nucleated RBC % Specimen Type LUIS Sample Site OTHER O2 % 21 VBG pH 7.01 L* VBG pO2 39 VBG O2 Sat (Calc) 49 L VBG O2 Content 11 L VBG Base Excess -21 L POC Mix VBG pCO2 Pt Tmp 39.7 L Blood Gas Notified Whom ED Blood Gas Notified Time 1143 Sodium Potassium Chloride Carbon Dioxide Anion Gap BUN Creatinine Estim Creat Clear Calc Est GFR (MDRD) Af Amer Est GFR (MDRD) Non-Af BUN/Creatinine Ratio Glucose Hemoglobin A1c Calcium Phosphorus Magnesium Total Bilirubin AST ALT Alkaline Phosphatase Total Protein Albumin Globulin Albumin/Globulin Ratio Urine Color Urine Clarity Urine pH Ur Specific [place] Urine Protein Urine Glucose (UA) Urine Ketones Urine Occult Blood Urine Nitrite Urine Bilirubin Urine Urobilinogen Ur Leukocyte Esterase Urine RBC Urine WBC Ur Squamous Epith Cells Urine Bacteria Urine Mucus Acetone Level POC Glucose > 500 H* > 500 H* 11/10/19 11/10/19 11/10/19 12:30 13:29 14:34 WBC RBC Hgb Hct MCV MCH MCHC RDW Std Deviation RDW Coeff of Marilynn Plt Count MPV Immature Gran % (Auto) Neut % (Auto) Lymph % (Auto) [place] % (Auto) Eos % (Auto) Baso % (Auto) Absolute Neuts (auto) Absolute Lymphs (auto) Nucleated RBC % Specimen Type Sample Site O2 % VBG pH VBG pO2 VBG O2 Sat (Calc) VBG O2 Content VBG Base Excess POC Mix VBG pCO2 Pt Tmp Blood Gas Notified Whom Blood Gas Notified Time Sodium Potassium Chloride Carbon Dioxide Anion Gap BUN Creatinine Estim Creat Clear Calc Est GFR (MDRD) Af Amer Est GFR (MDRD) Non-Af BUN/Creatinine Ratio Glucose Hemoglobin A1c Calcium Phosphorus Magnesium Total Bilirubin AST ALT Alkaline Phosphatase Total Protein Albumin Globulin Albumin/Globulin Ratio Urine Color Yellow Urine Clarity Clear Urine pH 5.0 Ur Specific [place] 1.020 Urine Protein 30 H Urine Glucose (UA) 1000 H Urine Ketones 150 H Urine Occult Blood Negative Urine Nitrite Negative Urine Bilirubin Negative Urine Urobilinogen Normal Ur Leukocyte Esterase Negative Urine RBC 0 SEEN Urine WBC 0 SEEN Ur Squamous Epith Cells 0 SEEN Urine Bacteria 0 SEEN Urine Mucus 0 SEEN Acetone Level POC Glucose 436 H 285 H 11/10/19 11/10/19 11/10/19 15:30 15:34 16:41 WBC RBC Hgb Hct MCV MCH MCHC RDW Std Deviation RDW Coeff of Marilynn Plt Count MPV Immature Gran % (Auto) Neut % (Auto) Lymph % (Auto) [place] % (Auto) Eos % (Auto) Baso % (Auto) Absolute Neuts (auto) Absolute Lymphs (auto) Nucleated RBC % Specimen Type Sample Site O2 % VBG pH VBG pO2 VBG O2 Sat (Calc) VBG O2 Content VBG Base Excess POC Mix VBG pCO2 Pt Tmp Blood Gas Notified Whom Blood Gas Notified Time Sodium 140 Potassium 4.2 Chloride 111 H Carbon Dioxide 14.0 L Anion Gap 15 BUN 13 Creatinine 0.68 Estim Creat Clear Calc 103.51 Est GFR (MDRD) Af Amer 140 Est GFR (MDRD) Non-Af 116 BUN/Creatinine Ratio 19.2 Glucose 267 H Hemoglobin A1c Calcium 8.3 L Phosphorus Magnesium Total Bilirubin AST ALT Alkaline Phosphatase Total Protein Albumin Globulin Albumin/Globulin Ratio Urine Color Urine Clarity Urine pH Ur Specific [place] Urine Protein Urine Glucose (UA) Urine Ketones Urine Occult Blood Urine Nitrite Urine Bilirubin Urine Urobilinogen Ur Leukocyte Esterase Urine RBC Urine WBC Ur Squamous Epith Cells Urine Bacteria Urine Mucus Acetone Level POC Glucose 243 H 195 H 11/10/19 11/10/19 11/10/19 17:35 18:30 19:30 WBC RBC Hgb Hct MCV MCH MCHC RDW Std Deviation RDW Coeff of Marilynn Plt Count MPV Immature Gran % (Auto) Neut % (Auto) Lymph % (Auto) [place] % (Auto) Eos % (Auto) Baso % (Auto) Absolute Neuts (auto) Absolute Lymphs (auto) Nucleated RBC % Specimen Type Sample Site O2 % VBG pH VBG pO2 VBG O2 Sat (Calc) VBG O2 Content VBG Base Excess POC Mix VBG pCO2 Pt Tmp Blood Gas Notified Whom Blood Gas Notified Time Sodium 140 Potassium 3.7 Chloride 112 H Carbon Dioxide 22.0 Anion Gap 6 BUN 11 Creatinine 0.68 Estim Creat Clear Calc 103.51 Est GFR (MDRD) Af Amer 140 Est GFR (MDRD) Non-Af 116 BUN/Creatinine Ratio 16.2 Glucose 147 H Hemoglobin A1c Calcium 8.0 L Phosphorus Magnesium Total Bilirubin AST ALT Alkaline Phosphatase Total Protein Albumin Globulin Albumin/Globulin Ratio Urine Color Urine Clarity Urine pH Ur Specific [place] Urine Protein Urine Glucose (UA) Urine Ketones Urine Occult Blood Urine Nitrite Urine Bilirubin Urine Urobilinogen Ur Leukocyte Esterase Urine RBC Urine WBC Ur Squamous Epith Cells Urine Bacteria Urine Mucus Acetone Level POC Glucose 159 H 183 H 11/10/19 11/10/19 11/10/19 19:30 20:25 21:19 WBC RBC Hgb Hct MCV MCH MCHC RDW Std Deviation RDW Coeff of Marilynn Plt Count MPV Immature Gran % (Auto) Neut % (Auto) Lymph % (Auto) [place] % (Auto) Eos % (Auto) Baso % (Auto) Absolute Neuts (auto) Absolute Lymphs (auto) Nucleated RBC % Specimen Type Sample Site O2 % VBG pH VBG pO2 VBG O2 Sat (Calc) VBG O2 Content VBG Base Excess POC Mix VBG pCO2 Pt Tmp Blood Gas Notified Whom Blood Gas Notified Time Sodium Potassium Chloride Carbon Dioxide Anion Gap BUN Creatinine Estim Creat Clear Calc Est GFR (MDRD) Af Amer Est GFR (MDRD) Non-Af BUN/Creatinine Ratio Glucose Hemoglobin A1c Calcium Phosphorus Magnesium Total Bilirubin AST ALT Alkaline Phosphatase Total Protein Albumin Globulin Albumin/Globulin Ratio Urine Color Urine Clarity Urine pH Ur Specific [place] Urine Protein Urine Glucose (UA) Urine Ketones Urine Occult Blood Urine Nitrite Urine Bilirubin Urine Urobilinogen Ur Leukocyte Esterase Urine RBC Urine WBC Ur Squamous Epith Cells Urine Bacteria Urine Mucus Acetone Level POC Glucose 140 H 92 58 L 11/10/19 11/10/19 11/10/19 21:43 22:28 23:29 WBC RBC Hgb Hct MCV MCH MCHC RDW Std Deviation RDW Coeff of Marilynn Plt Count MPV Immature Gran % (Auto) Neut % (Auto) Lymph % (Auto) [place] % (Auto) Eos % (Auto) Baso % (Auto) Absolute Neuts (auto) Absolute Lymphs (auto) Nucleated RBC % Specimen Type Sample Site O2 % VBG pH VBG pO2 VBG O2 Sat (Calc) VBG O2 Content VBG Base Excess POC Mix VBG pCO2 Pt Tmp Blood Gas Notified Whom Blood Gas Notified Time Sodium Potassium Chloride Carbon Dioxide Anion Gap BUN Creatinine Estim Creat Clear Calc Est GFR (MDRD) Af Amer Est GFR (MDRD) Non-Af BUN/Creatinine Ratio Glucose Hemoglobin A1c Calcium Phosphorus Magnesium Total Bilirubin AST ALT Alkaline Phosphatase Total Protein Albumin Globulin Albumin/Globulin Ratio Urine Color Urine Clarity Urine pH Ur Specific [place] Urine Protein Urine Glucose (UA) Urine Ketones Urine Occult Blood Urine Nitrite Urine Bilirubin Urine Urobilinogen Ur Leukocyte Esterase Urine RBC Urine WBC Ur Squamous Epith Cells Urine Bacteria Urine Mucus Acetone Level POC Glucose 185 H 152 H 100 11/10/19 11/11/19 11/11/19 23:30 00:28 01:26 WBC RBC Hgb Hct MCV MCH MCHC RDW Std Deviation RDW Coeff of Marilynn Plt Count MPV Immature Gran % (Auto) Neut % (Auto) Lymph % (Auto) [place] % (Auto) Eos % (Auto) Baso % (Auto) Absolute Neuts (auto) Absolute Lymphs (auto) Nucleated RBC % Specimen Type Sample Site O2 % VBG pH VBG pO2 VBG O2 Sat (Calc) VBG O2 Content VBG Base Excess POC Mix VBG pCO2 Pt Tmp Blood Gas Notified Whom Blood Gas Notified Time Sodium 140 Potassium 3.4 L Chloride 112 H Carbon Dioxide 21.0 Anion Gap 7 BUN 10 Creatinine 0.59 Estim Creat Clear Calc 119.29 Est GFR (MDRD) Af Amer 165 Est GFR (MDRD) Non-Af 137 BUN/Creatinine Ratio 17.0 Glucose 113 H Hemoglobin A1c Calcium 8.1 L Phosphorus Magnesium Total Bilirubin AST ALT Alkaline Phosphatase Total Protein Albumin Globulin Albumin/Globulin Ratio Urine Color Urine Clarity Urine pH Ur Specific [place] Urine Protein Urine Glucose (UA) Urine Ketones Urine Occult Blood Urine Nitrite Urine Bilirubin Urine Urobilinogen Ur Leukocyte Esterase Urine RBC Urine WBC Ur Squamous Epith Cells Urine Bacteria Urine Mucus Acetone Level POC Glucose 96 171 H 11/11/19 11/11/19 11/11/19 03:19 04:35 04:35 WBC 11.5 H RBC 4.22 Hgb 12.4 Hct 35.9 L MCV 85.1 MCH 29.4 MCHC 34.5 D RDW Std Deviation 40.0 RDW Coeff of Marilynn 13.2 Plt Count 328 MPV 8.9 Immature Gran % (Auto) 0.300 Neut % (Auto) 69.1 Lymph % (Auto) 24.6 [place] % (Auto) 5.2 Eos % (Auto) 0.6 Baso % (Auto) 0.2 Absolute Neuts (auto) 7.9 H Absolute Lymphs (auto) 2.83 Nucleated RBC % 0 Specimen Type Sample Site O2 % VBG pH VBG pO2 VBG O2 Sat (Calc) VBG O2 Content VBG Base Excess POC Mix VBG pCO2 Pt Tmp Blood Gas Notified Whom Blood Gas Notified Time Sodium 139 Potassium 3.2 L Chloride 111 H Carbon Dioxide 23.0 Anion Gap 5 BUN 11 Creatinine 0.53 L Estim Creat Clear Calc 133.06 Est GFR (MDRD) Af Amer 187 Est GFR (MDRD) Non-Af 155 BUN/Creatinine Ratio 20.9 H Glucose 92 Hemoglobin A1c Calcium 7.9 L Phosphorus Magnesium Total Bilirubin 0.30 AST 13 L ALT 17 Alkaline Phosphatase 65 Total Protein 5.8 L Albumin 3.0 L Globulin 2.8 Albumin/Globulin Ratio 1.1 Urine Color Urine Clarity Urine pH Ur Specific [place] Urine Protein Urine Glucose (UA) Urine Ketones Urine Occult Blood Urine Nitrite Urine Bilirubin Urine Urobilinogen Ur Leukocyte Esterase Urine RBC Urine WBC Ur Squamous Epith Cells Urine Bacteria Urine Mucus Acetone Level POC Glucose 145 H Medical Necessity - Tobacco Use Smoking Status: Former smoker - Previous cannabis usage, quit 1 week prior to current admission, notes she did smoke the cannabis. Tobacco Use: - - Previous cannabis usage, quit 1 week prior to current admission, notes she did smoke the cannabis. Assessment/Plan All Active Problems (Last Updated 08/20/18 @ 11:18 by Adriana Mulligan) DKA (diabetic ketoacidoses) (Acute) Acute hepatitis A virus infection (Acute) Hepatitis (Acute) Acute liver injury (Acute) Leucocytosis (Acute) RECOMMENDATIONS: 1. Continuous basal and sliding scale insulin coverage as ordered. 2. Potassium repletion as ordered. 3. Dietary advancement. 4. Diabetic education. 5. The patient is medically stable for transfer out of the intensive care unit versus direct discharge home. IMPRESSIONS: 1. Diabetic ketoacidosis secondary to outpatient noncompliance The patient reported that she had been unable to check her blood sugars for the last 2 days due to a lack of Internet connectivity. However, in May 2019 the patient had a hemoglobin A1c of nearly 13. 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 The etiology for her DKA appears to be due to noncompliance. The patient's anion gap has been closed now on several occasion s. She has been transitioned to basal insulin and sliding scale coverage, which will be continued. Diabetic education is to be provided. Diet can be advanced accordingly. 2. Acute kidney injury Resolved. Likely prerenal in etiology and related to intravascular volume depletion from osmotic diuresis coupled with GI losses. Continue to monitor urine output. There is no current indication for renal replacement therapy. 3. Hypokalemia Electrolyte repletion as ordered. This note was generated with [employer] dictation software. It may contain incorrect words, spelling, and punctuation that were not noted in checking the note before signing. Inpatient E&M: 94549 Subs Hosp L2
--- NOTE | 2019-11-11 06:47 | PCM.PN.HOSP ---
Patient Problems: Active and Suspected Problems (Last Updated 08/20/18 @ 11:18 by Adriana Mulligan) DKA (diabetic ketoacidoses) (Acute) Subjective: Patient with no acute events overnight per self and per nursing report. Patient currently completing potassium supplementations. She notes she slept well and denies any further nausea. Discussed frankly of the need to appropriately monitor her blood sugars and take her insulin therapies and she states understanding. Discussed that a glucometer prescription would be given to her upon discharge if she had recurrent issues with her Internet system for checking her blood sugars. Encouraged her to very quickly and early this a.m. obtain the glucometer and had a immediately home. Patient denies fevers, chills, nausea, emesis, abdominal pain, chest pain or dyspnea. Objective: Physical Examination: General: awake, alert, oriented x 3 and cooperative, laying in ICU bed, no acute distress. Skin: normal color, turgor, no icterus, cyanosis. HEENT: AT/NC, EOMI, PERRLA, improved MMM. Lungs: CTA bilaterally, moderate effort, mild decrease BL bases, no rales, ronchi or wheezing. Heart: Improved, regular rate and rhythm; no gallop, rub audible. Abdomen: soft, NTTP, ND, normal BS. Extremities: no cyanosis, clubbing, or edema. Neurological: patient awake, alert, oriented x 3; cognitive function intact; pupils equally reactive to light and accomodation; cranial nerves II-XII grossly normal, moving all 4 extremities, no focal deficits, strength improved, mildly globally decreased. Psychiatric: affect appears improved, less fatigued, no acute evidence of depressive or anxiety feelings. Vitals/I&O's: Vital Signs Temp Pulse Resp BP Pulse Ox 99.4 F H 91 18 95/61 99 11/11/19 04:00 11/11/19 06:00 11/11/19 06:00 11/11/19 06:00 11/11/19 06:00 Oxygen Delivery Method Room Air Weight: 110 lb 10.753 oz Body Mass Index (BMI) 22.3 Finger Stick Blood Glucose 171 Intake and Output for Last 24 Hours 11/09/19 11/10/19 11/11/19 23:59 23:59 23:59 Intake Total 5417.44 / 5417.44 521.23 / 521.23 Output Total 850 / 850 Balance 4567.44 / 4567.44 521.23 / 521.23 Laboratory Results 11/10/19 10:57: POC Glucose > 500 H* 11/10/19 11:15: WBC 22.6 H, RBC 5.91 H, Hgb 17.2 H, Hct 52.8 H, MCV 89.3, MCH 29.1, MCHC 32.6, RDW Std Deviation 41.0, RDW Coeff of Marilynn 12.6, Plt Count 496 H, MPV 9.5, Immature Gran % (Auto) 1.200 H, Neut % (Auto) 89.0 H, Lymph % (Auto) 6.0 L, [place] % (Auto) 3.0, Eos % (Auto) 0.2, Baso % (Auto) 0.6, Absolute Neuts (auto) 20.1 H, Absolute Lymphs (auto) 1.36, Nucleated RBC % 0 11/10/19 11:15: Sodium 132 L, Potassium 4.5, Chloride 94 L, Carbon Dioxide 12.0 L, Anion Gap 26 H, BUN 19 H, Creatinine 1.26 H, Estim Creat Clear Calc 70.80, Est GFR (MDRD) Af Amer 69, Est GFR (MDRD) Non-Af 57 L, BUN/Creatinine Ratio 15.1, Glucose 633 H*, Calcium 9.8 11/10/19 11:15: Acetone Level MODERATE H 11/10/19 11:15: Phosphorus 8.5 H, Magnesium 2.5 11/10/19 11:15: Hemoglobin A1c 12.5 H 11/10/19 11:43: Specimen Type LUIS, Sample Site OTHER, O2 % 21, VBG pH 7.01 L*, VBG pO2 39, VBG O2 Sat (Calc) 49 L, VBG O2 Content 11 L, VBG Base Excess -21 L, POC Mix VBG pCO2 Pt Tmp 39.7 L, Blood Gas Notified Whom ED , Blood Gas Notified Time 1143 11/10/19 11:53: POC Glucose > 500 H* 11/10/19 12:19: POC Glucose > 500 H* 11/10/19 12:30: Urine Color Yellow, Urine Clarity Clear, Urine pH 5.0, Ur Specific [place] 1.020, Urine Protein 30 H, Urine Glucose (UA) 1000 H, Urine Ketones 150 H, Urine Occult Blood Negative, Urine Nitrite Negative, Urine Bilirubin Negative, Urine Urobilinogen Normal, Ur Leukocyte Esterase Negative, Urine RBC 0 SEEN, Urine WBC 0 SEEN, Ur Squamous Epith Cells 0 SEEN, Urine Bacteria 0 SEEN, Urine Mucus 0 SEEN 11/10/19 13:29: POC Glucose 436 H 11/10/19 14:34: POC Glucose 285 H 11/10/19 15:30: Sodium 140, Potassium 4.2, Chloride 111 H, Carbon Dioxide 14.0 L, Anion Gap 15, BUN 13, Creatinine 0.68, Estim Creat Clear Calc 103.51, Est GFR (MDRD) Af Amer 140, Est GFR (MDRD) Non-Af 116, BUN/Creatinine Ratio 19.2, Glucose 267 H, Calcium 8.3 L 11/10/19 15:34: POC Glucose 243 H 11/10/19 16:41: POC Glucose 195 H 11/10/19 17:35: POC Glucose 159 H 11/10/19 18:30: POC Glucose 183 H 11/10/19 19:30: Sodium 140, Potassium 3.7, Chloride 112 H, Carbon Dioxide 22.0, Anion Gap 6, BUN 11, Creatinine 0.68, Estim Creat Clear Calc 103.51, Est GFR (MDRD) Af Amer 140, Est GFR (MDRD) Non-Af 116, BUN/Creatinine Ratio 16.2, Glucose 147 H, Calcium 8.0 L 11/10/19 19:30: POC Glucose 140 H 11/10/19 20:25: POC Glucose 92 11/10/19 21:19: POC Glucose 58 L 11/10/19 21:43: POC Glucose 185 H 11/10/19 22:28: POC Glucose 152 H 11/10/19 23:29: POC Glucose 100 11/10/19 23:30: Sodium 140, Potassium 3.4 L, Chloride 112 H, Carbon Dioxide 21.0, Anion Gap 7, BUN 10, Creatinine 0.59, Estim Creat Clear Calc 119.29, Est GFR (MDRD) Af Amer 165, Est GFR (MDRD) Non-Af 137, BUN/Creatinine Ratio 17.0, Glucose 113 H, Calcium 8.1 L 11/11/19 00:28: POC Glucose 96 11/11/19 01:26: POC Glucose 171 H 11/11/19 03:19: POC Glucose 145 H 11/11/19 04:35: WBC 11.5 H, RBC 4.22, Hgb 12.4, Hct 35.9 L, MCV 85.1, MCH 29.4, MCHC 34.5 D, RDW Std Deviation 40.0, RDW Coeff of Marilynn 13.2, Plt Count 328, MPV 8.9, Immature Gran % (Auto) 0.300, Neut % (Auto) 69.1, Lymph % (Auto) 24.6, [place] % (Auto) 5.2, Eos % (Auto) 0.6, Baso % (Auto) 0.2, Absolute Neuts (auto) 7.9 H, Absolute Lymphs (auto) 2.83, Nucleated RBC % 0 11/11/19 04:35: Sodium 139, Potassium 3.2 L, Chloride 111 H, Carbon Dioxide 23.0, Anion Gap 5, BUN 11, Creatinine 0.53 L, Estim Creat Clear Calc 133.06, Est GFR (MDRD) Af Amer 187, Est GFR (MDRD) Non-Af 155, BUN/Creatinine Ratio 20.9 H, Glucose 92, Calcium 7.9 L, Total Bilirubin 0.30, AST 13 L, ALT 17, Alkaline Phosphatase 65, Total Protein 5.8 L, Albumin 3.0 L, Globulin 2.8, Albumin/Globulin Ratio 1.1 Current Medications Acetaminophen (Tylenol) 650 mg PO Q6H PRN PRN PRN Reason: Pain Score 1-10/Temp > 100.7 F Last Admin: 11/10/19 23:38 Dose: 650 mg Documented by: Al Hydroxide/Mg Hydroxide (Mylanta Ii) 30 ml PO Q6H PRN PRN PRN Reason: Gastric Burning Albuterol Sulfate (Ventolin Aerosols) 2.5 mg INHALATION Q2H PRN PRN PRN Reason: Dyspnea, wheezing Dextrose (D50w Syringe) 0 gm IV X1 PRN; Protocol PRN Reason: HYPOGLYCEMIA Last Admin: 11/10/19 21:25 Dose: 50 gm Documented by: Famotidine (Pepcid) 20 mg PO BID [facility] Last Admin: 11/10/19 21:26 Dose: 20 mg Documented by: Glucagon () 1 mg IM .X1 PRN PRN Reason: Hypoglycemia Guaifenesin (Robitussin) 10 ml PO Q4H PRN PRN PRN Reason: COUGH Hydralazine HCl (Apresoline Iv) 10 mg IV Q4H PRN PRN PRN Reason: SBP > 160 Sodium Chloride () 250 mls @ 15 mls/hr IV .[id number] PRN PRN Reason: Saline Flush Sodium Chloride () 250 mls @ 15 mls/hr IV .[id number] PRN PRN Reason: Additional IVPB Infusion Potassium Chloride/Dextrose/Sod Cl (Kcl 20meq In D5.45ns 1000ml) 1,000 mls @ 150 mls/hr IV .Q6H40M [facility] Last Infusion: 11/11/19 02:15 Dose: Infused Documented by: Insulin Glargine (Lantus ([facility])) 75 units SC QHS [facility] Last Admin: 11/11/19 00:30 Dose: 75 units Documented by: Insulin Human Lispro (Humalog Kwikpen ([facility])) 0 unit SC [facility]; Protocol Magnesium Hydroxide (Milk Of Magnesia) 30 ml PO DAILY PRN PRN PRN Reason: Constipation Melatonin (Melatonin) 3 mg PO QHS PRN PRN PRN Reason: INSOMNIA Morphine Sulfate () 2 mg IV Q3H PRN PRN PRN Reason: Pain Score 6-10/10 Ondansetron HCl (Zofran) 4 mg IV Q8H PRN PRN PRN Reason: NAUSEA/VOMITING Oxycodone HCl (Oxyir) 5 mg PO Q4H PRN PRN PRN Reason: Pain Score 4-5/10 Prochlorperazine Edisylate (Compazine Iv) 5 mg IV Q4H PRN PRN PRN Reason: Breakthrough Nausea/Vomiting Psyllium Hydrophilic Mucilloid (Metamucil) 1 packet PO DAILY PRN PRN PRN Reason: Constipation Senna/Docusate Sodium (Senokot-S, Marisabel-Colace) 2 tablet PO BID PRN PRN Reason: Constipation Sodium Chloride () 10 - 40 ml IV UD PRN PRN Reason: SALINE FLUSH Last Admin: 11/10/19 23:39 Dose: 10 ml Documented by: Throat Lozenges (Cepacol Sore Throat Lozenge) 1 lozenge MUCOUS MEM Q2H PRN PRN PRN Reason: SORE THROAT STROKE Vital Signs/Narrative: Vital Signs Temp Pulse Resp BP Pulse Ox 11/11/19 06:00 91 18 95/61 99 11/11/19 05:00 89 18 102/65 99 11/11/19 04:00 99.4 F H 94 18 100/56 L 98 11/11/19 03:00 99 20 H 114/61 98 Medical Necessity - Tobacco Use Smoking Status: Former smoker - Previous cannabis usage, quit 1 week prior to current admission, notes she did smoke the cannabis. Tobacco Use: - - Previous cannabis usage, quit 1 week prior to current admission, notes she did smoke the cannabis. Assessment/Plan All Active Problems (Last Updated 08/20/18 @ 11:18 by Adriana Mulligan) DKA (diabetic ketoacidoses) (Acute) Acute hepatitis A virus infection (Acute) Hepatitis (Acute) Acute liver injury (Acute) Leucocytosis (Acute) The patient is a 19 y/o F w/ PMHx: Hx Hepatitis A, Asthma, Diabetes mellitus type I with freestyle implant, Cannabis usage who presents to the [facility] ED on 11/10/19 with history of awakening at 5 AM with significant nausea without emesis but inability to have any oral intake since this AM and mild back discomfort with no other associated symptoms including abdominal pain, cramping, diarrhea, dyspnea, cough noting that she has been unable to check her blood sugars over the last 2 days at least. 1. DKA w/ Diabetes mellitus type I: Work-up in the ED included T 97, heart rate initially 150 with improvement to 122 with hydration, BP 08/13/1984, respiratory rate 22, 98% on room air, CBC with WC 22.6, hemoglobin 17.2, platelet 496 with a left shift, VBG with pH 7.01, O2 49, BMP with sodium 132, chloride 94, carbon oxide 12, anion gap 26, BUN/creatinine 19/1.26, glucose 633, acetone moderate, urinalysis with no evidence of UTI with positive ketones and glucose 1000. In the ED patient administered insulin, zofran, NS. Patient was admitted to the ICU, continued on insulin drip until AG closure x 3, checked serial K+, alteration of IVFs as needed, mag and phos assessment with repletion as needed, transitioned to home SC regimen when her gap closed w/ overlap on drip, nutrition consultation, HgbA1c obtained 12.5%. Encouraged diet and insulin regimen compliance. Given VBG with significant acidosis also administered bicarb. Given presentation with significant acidosis ICU Dr. Michael also followed. also request consultation with seat joiner. Given gap closure, toleration of diet, planned discharge to home with PCP and endocrinology follow-up with glucometer. 2. Acute kidney injury: Secondary to acute presentation #1. Admission BUN/Cr 19/1.26, prior baseline creatinine noted to be 0.5-0.6, hydrated, held nephrotoxic regimen, repeat 11/11/19 BUN/Cr 11/0.53, resolved. 3. Chronic asthma: We will maintain head of bed, I-S, PRN albuterol regimen. 4. Cannabis usage: Notes she quit smoking cannabis approximately 1 week prior primarily secondary to cost. Encouraged her to continue cessation especially given underlying asthmatic disease. 5. GERD: We will maintain on famotidine. 6. DVT prophylaxis: Low risk, encourage ambulation. 7. CODE STATUS: Full code.
--- NOTE | 2019-11-11 07:15 | DCINST_ITS ---
- Discharge Diagnoses Current Active Problems: Current Active and Chronic Problems (Last Updated 08/20/18 @ 11:18 by Adriana Mulligan) 1. DKA w/ Diabetes mellitus type I 2. Acute kidney injury, Secondary to acute presentation #1 3. Chronic asthma 4. Cannabis usage 5. GERD You will use the following diet at home:: Calorie/Carbohydrate Controlled (specify 1200, 1400, etc) Your food should be the consistency of: Regular Your liquids should be the consistency of: Regular/Thin Discharge Activity: Return to Normal Activity Call your doctor if you observe: Fever of 101 or Higher, Inability to urinate, Inability to have a bowel movement, Shortness of breath, Dizziness, Fainting spells, Chest pain, Uncontrolled pain, - - Inability to control blood sugars or issues with checking your blood sugars. Instructions: What is Type 1 Diabetes?, How to Check Your Blood Sugar, Healthy Meals for Diabetes, Types of Insulin, Using Injected Insulin Allergies/Adverse Reactions: Allergies Penicillins Allergy (Verified 11/10/19 12:01) Unknown Sulfa (Sulfonamide Antibiotics) Allergy (Verified 11/10/19 12:01) Unknown prednisone Adverse Reaction (Verified 11/10/19 12:01) Vomiting bee stings Allergy (Severe, Uncoded 11/10/19 12:01) Anaphylaxis Medications to take at Discharge Albuterol Sulfate [Ventolin Hfa] 2 puff INHALATION Q4H PRN PRN 08/25/18 Insulin Glargine,Hum.rec.anlog [Basaglar Kwikpen U-100] 75 unit SUBCUT QHS 11/10/19 Insulin Lispro [Insulin Lispro Kwikpen U-100] 0 unit SQ TID 11/10/19 Orders to be completed after discharge: Glucometer Location: None Selected Primary Care Physician: Erika Sen MD [Primary Care Provider] - Please follow up with your Primary Care Physician in: Follow-up within 3-5 days Test Results: Test results from this visit will be discussed in further detail at your follow- up appointment, if applicable. Please Follow Up With: Pj Chow MD When: Please establish first open visit for diabetes mellitus type I Proposed Discharge Date: 11/11/19
--- NOTE | 2019-11-11 07:17 | PCM.DC.SUM ---
Discharge Date and Diagnosis - Problem List Patient Problems: Active and Suspected Problems (Last Updated 08/20/18 @ 11:18 by Adriana Mulligan) DKA (diabetic ketoacidoses) (Acute) Date of Admission: 11/10/19 Date of Discharge: 11/11/19 - Primary Discharge Diagnosis Active and Suspected Problems (Last Updated 08/20/18 @ 11:18 by Adriana Mulligan) 1. DKA w/ Diabetes mellitus type I 2. Acute kidney injury, Secondary to acute presentation #1 3. Chronic asthma 4. Cannabis usage 5. 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 Michael Operations: None Procedures: EKG Summary of Care Provided: The patient is a 19 y/o F w/ PMHx: Hx Hepatitis A, Asthma, Diabetes mellitus type I with freestyle implant, Cannabis usage who presented to the [facility] ED on 11/10/19 with history of awakening at 5 AM with significant nausea without emesis but inability to have any oral intake since this AM and mild back discomfort with no other associated symptoms including abdominal pain, cramping, diarrhea, dyspnea, cough noting that she has been unable to check her blood sugars over the last 2 days at least. Work-up in the ED included T 97, heart rate initially 150 with improvement to 122 with hydration, BP 08/13/1984, respiratory rate 22, 98% on room air, CBC with WC 22.6, hemoglobin 17.2, platelet 496 with a left shift, VBG with pH 7.01, O2 49, BMP with sodium 132, chloride 94, carbon oxide 12, anion gap 26, BUN/creatinine 19/1.26, glucose 633, acetone moderate, urinalysis with no evidence of UTI with positive ketones and glucose 1000. In the ED patient administered insulin, zofran, NS. Patient was admitted to the ICU, continued on insulin drip until AG closure x 3, checked serial K+, alteration of IVFs as needed, mag and phos assessment with repletion as needed, transitioned to home SC regimen when her gap closed w/ overlap on drip, nutrition consultation, HgbA1c obtained 12.5%. Encouraged diet and insulin regimen compliance. Given VBG with significant acidosis also administered bicarb. Given presentation with significant acidosis ICU Dr. Michael also followed. also request consultation with electroencephalogram technologist. Of note concurrent [place], admission BUN/Cr 19/1.26, prior baseline creatinine noted to be 0.5-0.6, 11/11/19 BUN/Cr 11/0.53. Given improvement, patient tolerating diet, DKA resolved, patient discharged to home with rx for glucometer given issues with checking her BS alternate route with recommended PCP followup and referral to marionette performer. Patient Problems: Active and Suspected Problems (Last Updated 08/20/18 @ 11:18 by Adriana Mulligan) DKA (diabetic ketoacidoses) (Acute) - Physical Exam Vitals/I&O's: Vital Signs Temp Pulse Resp BP Pulse Ox 99.4 F H 91 18 95/61 99 11/11/19 04:00 11/11/19 06:00 11/11/19 06:00 11/11/19 06:00 11/11/19 06:00 Oxygen Delivery Method Room Air Weight: 110 lb 10.753 oz Body Mass Index (BMI) 22.3 Finger Stick Blood Glucose 171 Intake and Output for Last 24 Hours 11/09/19 11/10/19 11/11/19 23:59 23:59 23:59 Intake Total 5417.44 / 5417.44 521.23 / 521.23 Output Total 850 / 850 Balance 4567.44 / 4567.44 521.23 / 521.23 Laboratory Results 11/10/19 10:57: POC Glucose > 500 H* 11/10/19 11:15: WBC 22.6 H, RBC 5.91 H, Hgb 17.2 H, Hct 52.8 H, MCV 89.3, MCH 29.1, MCHC 32.6, RDW Std Deviation 41.0, RDW Coeff of Marilynn 12.6, Plt Count 496 H, MPV 9.5, Immature Gran % (Auto) 1.200 H, Neut % (Auto) 89.0 H, Lymph % (Auto) 6.0 L, [place] % (Auto) 3.0, Eos % (Auto) 0.2, Baso % (Auto) 0.6, Absolute Neuts (auto) 20.1 H, Absolute Lymphs (auto) 1.36, Nucleated RBC % 0 11/10/19 11:15: Sodium 132 L, Potassium 4.5, Chloride 94 L, Carbon Dioxide 12.0 L, Anion Gap 26 H, BUN 19 H, Creatinine 1.26 H, Estim Creat Clear Calc 70.80, Est GFR (MDRD) Af Amer 69, Est GFR (MDRD) Non-Af 57 L, BUN/Creatinine Ratio 15.1, Glucose 633 H*, Calcium 9.8 11/10/19 11:15: Acetone Level MODERATE H 11/10/19 11:15: Phosphorus 8.5 H, Magnesium 2.5 11/10/19 11:15: Hemoglobin A1c 12.5 H 11/10/19 11:43: Specimen Type LUIS, Sample Site OTHER, O2 % 21, VBG pH 7.01 L*, VBG pO2 39, VBG O2 Sat (Calc) 49 L, VBG O2 Content 11 L, VBG Base Excess -21 L, POC Mix VBG pCO2 Pt Tmp 39.7 L, Blood Gas Notified Whom ED , Blood Gas Notified Time 1143 11/10/19 11:53: POC Glucose > 500 H* 11/10/19 12:19: POC Glucose > 500 H* 11/10/19 12:30: Urine Color Yellow, Urine Clarity Clear, Urine pH 5.0, Ur Specific [place] 1.020, Urine Protein 30 H, Urine Glucose (UA) 1000 H, Urine Ketones 150 H, Urine Occult Blood Negative, Urine Nitrite Negative, Urine Bilirubin Negative, Urine Urobilinogen Normal, Ur Leukocyte Esterase Negative, Urine RBC 0 SEEN, Urine WBC 0 SEEN, Ur Squamous Epith Cells 0 SEEN, Urine Bacteria 0 SEEN, Urine Mucus 0 SEEN 11/10/19 13:29: POC Glucose 436 H 11/10/19 14:34: POC Glucose 285 H 11/10/19 15:30: Sodium 140, Potassium 4.2, Chloride 111 H, Carbon Dioxide 14.0 L, Anion Gap 15, BUN 13, Creatinine 0.68, Estim Creat Clear Calc 103.51, Est GFR (MDRD) Af Amer 140, Est GFR (MDRD) Non-Af 116, BUN/Creatinine Ratio 19.2, Glucose 267 H, Calcium 8.3 L 11/10/19 15:34: POC Glucose 243 H 11/10/19 16:41: POC Glucose 195 H 11/10/19 17:35: POC Glucose 159 H 11/10/19 18:30: POC Glucose 183 H 11/10/19 19:30: Sodium 140, Potassium 3.7, Chloride 112 H, Carbon Dioxide 22.0, Anion Gap 6, BUN 11, Creatinine 0.68, Estim Creat Clear Calc 103.51, Est GFR (MDRD) Af Amer 140, Est GFR (MDRD) Non-Af 116, BUN/Creatinine Ratio 16.2, Glucose 147 H, Calcium 8.0 L 11/10/19 19:30: POC Glucose 140 H 11/10/19 20:25: POC Glucose 92 11/10/19 21:19: POC Glucose 58 L 11/10/19 21:43: POC Glucose 185 H 11/10/19 22:28: POC Glucose 152 H 11/10/19 23:29: POC Glucose 100 11/10/19 23:30: Sodium 140, Potassium 3.4 L, Chloride 112 H, Carbon Dioxide 21.0, Anion Gap 7, BUN 10, Creatinine 0.59, Estim Creat Clear Calc 119.29, Est GFR (MDRD) Af Amer 165, Est GFR (MDRD) Non-Af 137, BUN/Creatinine Ratio 17.0, Glucose 113 H, Calcium 8.1 L 11/11/19 00:28: POC Glucose 96 11/11/19 01:26: POC Glucose 171 H 11/11/19 03:19: POC Glucose 145 H 11/11/19 04:35: WBC 11.5 H, RBC 4.22, Hgb 12.4, Hct 35.9 L, MCV 85.1, MCH 29.4, MCHC 34.5 D, RDW Std Deviation 40.0, RDW Coeff of Marilynn 13.2, Plt Count 328, MPV 8.9, Immature Gran % (Auto) 0.300, Neut % (Auto) 69.1, Lymph % (Auto) 24.6, [place] % (Auto) 5.2, Eos % (Auto) 0.6, Baso % (Auto) 0.2, Absolute Neuts (auto) 7.9 H, Absolute Lymphs (auto) 2.83, Nucleated RBC % 0 11/11/19 04:35: Sodium 139, Potassium 3.2 L, Chloride 111 H, Carbon Dioxide 23.0, Anion Gap 5, BUN 11, Creatinine 0.53 L, Estim Creat Clear Calc 133.06, Est GFR (MDRD) Af Amer 187, Est GFR (MDRD) Non-Af 155, BUN/Creatinine Ratio 20.9 H, Glucose 92, Calcium 7.9 L, Total Bilirubin 0.30, AST 13 L, ALT 17, Alkaline Phosphatase 65, Total Protein 5.8 L, Albumin 3.0 L, Globulin 2.8, Albumin/Globulin Ratio 1.1 Current Medications Acetaminophen (Tylenol) 650 mg PO Q6H PRN PRN PRN Reason: Pain Score 1-10/Temp > 100.7 F Last Admin: 11/10/19 23:38 Dose: 650 mg Documented by: Al Hydroxide/Mg Hydroxide (Mylanta Ii) 30 ml PO Q6H PRN PRN PRN Reason: Gastric Burning Albuterol Sulfate (Ventolin Aerosols) 2.5 mg INHALATION Q2H PRN PRN PRN Reason: Dyspnea, wheezing Dextrose (D50w Syringe) 0 gm IV X1 PRN; Protocol PRN Reason: HYPOGLYCEMIA Last Admin: 11/10/19 21:25 Dose: 50 gm Documented by: Famotidine (Pepcid) 20 mg PO BID [facility] Last Admin: 11/10/19 21:26 Dose: 20 mg Documented by: Glucagon () 1 mg IM .X1 PRN PRN Reason: Hypoglycemia Guaifenesin (Robitussin) 10 ml PO Q4H PRN PRN PRN Reason: COUGH Hydralazine HCl (Apresoline Iv) 10 mg IV Q4H PRN PRN PRN Reason: SBP > 160 Sodium Chloride () 250 mls @ 15 mls/hr IV .[id number] PRN PRN Reason: Saline Flush Sodium Chloride () 250 mls @ 15 mls/hr IV .[id number] PRN PRN Reason: Additional IVPB Infusion Potassium Chloride/Dextrose/Sod Cl (Kcl 20meq In D5.45ns 1000ml) 1,000 mls @ 150 mls/hr IV .Q6H40M [facility] Last Infusion: 11/11/19 02:15 Dose: Infused Documented by: Insulin Glargine (Lantus ([facility])) 75 units SC QHS [facility] Last Admin: 11/11/19 00:30 Dose: 75 units Documented by: Insulin Human Lispro (Humalog Kwikpen ([facility])) 0 unit SC ACHS [facility]; Protocol Magnesium Hydroxide (Milk Of Magnesia) 30 ml PO DAILY PRN PRN PRN Reason: Constipation Melatonin (Melatonin) 3 mg PO QHS PRN PRN PRN Reason: INSOMNIA Morphine Sulfate () 2 mg IV Q3H PRN PRN PRN Reason: Pain Score 6-10/10 Ondansetron HCl (Zofran) 4 mg IV Q8H PRN PRN PRN Reason: NAUSEA/VOMITING Oxycodone HCl (Oxyir) 5 mg PO Q4H PRN PRN PRN Reason: Pain Score 4-5/10 Prochlorperazine Edisylate (Compazine Iv) 5 mg IV Q4H PRN PRN PRN Reason: Breakthrough Nausea/Vomiting Psyllium Hydrophilic Mucilloid (Metamucil) 1 packet PO DAILY PRN PRN PRN Reason: Constipation Senna/Docusate Sodium (Senokot-S, Marisabel-Colace) 2 tablet PO BID PRN PRN Reason: Constipation Sodium Chloride () 10 - 40 ml IV UD PRN PRN Reason: SALINE FLUSH Last Admin: 11/10/19 23:39 Dose: 10 ml Documented by: Throat Lozenges (Cepacol Sore Throat Lozenge) 1 lozenge MUCOUS MEM Q2H PRN PRN PRN Reason: SORE THROAT Discharge Activity: Return to Normal Activity Call your doctor if you observe: Fever of 101 or Higher, Inability to urinate, Inability to have a bowel movement, Shortness of breath, Dizziness, Fainting spells, Chest pain, Uncontrolled pain, - - Inability to control blood sugars or issues with checking your blood sugars. Home Medications: Medications to take at Discharge Albuterol Sulfate [Ventolin Hfa] 2 puff INHALATION Q4H PRN PRN 08/25/18 Insulin Glargine,Hum.rec.anlog [Basaglar Kwikpen U-100] 75 unit SUBCUT QHS 11/10/19 Insulin Lispro [Insulin Lispro Kwikpen U-100] 0 unit SQ TID 11/10/19 Other Amb Orders: Glucometer Location: None Selected Primary Care Physician: Erika Sen MD [Primary Care Provider] - Please follow up with your Primary Care Physician in: Follow-up within 3-5 days Please Follow Up With: Pj Chow MD When: Please establish first open visit for diabetes mellitus type I Patient Instructions: What is Type 1 Diabetes?, How to Check Your Blood Sugar, Using Injected Insulin, Types of Insulin, Healthy Meals for Diabetes Disposition: Home Minutes spent on discharge:: 35 Patient Condition:: Fair Medical Necessity - Tobacco Use Smoking Status: Former smoker - Previous cannabis usage, quit 1 week prior to current admission, notes she did smoke the cannabis. Tobacco Use: - - Previous cannabis usage, quit 1 week prior to current admission, notes she did smoke the cannabis. Meaningful Use Info Meaningful Use Diagnoses (Choose all that apply): None applicable OBSV E&M: 91436 Observation care discharge
[2019-11-11 07:41] LABS: Bedside Glucose 141 mg/dL (70-110)
[2019-11-11] MEDS: Famotidine 20 MG Tablet PO (09:22)
[2019-11-11] MEDS: Insulin Lispro 100 UNIT/ML INSULN.PEN SC (11:24)
[2019-11-11 11:26] LABS: Bedside Glucose 186 mg/dL (70-110)
== END 2019-11-11 12:45 | disposition home or self-care (01) ==
LOC: ED 11:55 → ICU 11-11 07:39
PROVIDERS: Admitting Provider Family Medicine; Emergency Provider Emergency Medicine; PCP Internal Medicine; Visit Provider Family Medicine
DX: E10.10 Type 1 diabetes mellitus with ketoacidosis without coma (principal); K21.9 Gastro-esophageal reflux disease without esophagitis; J45.909 Unspecified asthma, uncomplicated; N17.9 Acute kidney failure, unspecified; E87.6 Hypokalemia; Z79.4 Long term (current) use of insulin; Z86.19 Personal history of other infectious and parasitic diseases; Z91.19 Patient's noncompliance with other medical treatment and regimen; Z87.891 Personal history of nicotine dependence
CPT/HCPCS: 80048; 80053; 81001; 82009; 82803; 82962; 83036; 83735; 84100; 85025; 96361; 96365; 96366; 96375; 97802; 99218; 99251; 99285; J7030; J7120; A4216; G0378; G0463; J2405

== ENCOUNTER 2020-01-13 17:35 | Observation (INO) | payer MEDICAID, SELFPAY ==
[2019-11-10 13:42] VITALS: BMI 22.3
[2020-01-13] VITALS (9 sets, daily range): BP systolic 110–134; BP diastolic 60–89; PULSE 90–128; RESP 16–23; TEMP 36.6–36.8; O2SAT 98–100; BMI 26.2; BMI 23.6
--- NOTE | 2020-01-13 17:39 | ED.RN ---
PT CHECKS HER BLOOD SUGAR. RESULT PER HER METER IS 183
--- NOTE | 2020-01-13 18:30 | EKG12_ITS ---
Test Reason : DYSRHYTHMIA Blood Pressure : / mmHG Vent. Rate : 119 BPM Atrial Rate : 119 BPM P-R Int : 116 ms QRS Dur : 082 ms QT Int : 364 ms P-R-T Axes : 067 082 021 degrees QTc Int : 512 ms Sinus tachycardia Nonspecific T wave abnormality Abnormal ECG Confirmed by BELLE AGOSTO, MAY ([id number]), purchasing expeditor ARELY OMALLEY ([id number]) on 01/18/2020 11:12:49 AM Referred By: Antonio Vaca Confirmed By:MAY ODONNELL MD
--- NOTE | 2020-01-13 18:31 | CT_ITS ---
STUDY: CT ABDOMEN AND PELVIS WITHOUT CONTRAST REASON FOR EXAM: Female, 19 years old. Right side abdominal pain, nausea vomiting diarrhea RADIATION DOSAGE (If Supplied By Facility): CTDIvol = ( 6.04 ) mGy, DLP = ( 282.37 ) mGycm TECHNIQUE: Transaxial images were obtained from the dome of the diaphragm to the symphysis pubis without oral contrast, and without intravenous contrast. Sagittal and coronal images were reconstructed. Individualized dose optimization techniques were used for this CT. COMPARISON: 15 February 2019 FINDINGS: The visualized lung bases are unremarkable. The visualized portions of the heart are within normal limits. Normal liver. Normal gallbladder and extrahepatic biliary system. Normal spleen. Normal pancreas. Normal bilateral adrenal glands. Normal right kidney. Normal left kidney. Normal visualized stomach. Normal small intestine. Normal colon. The appendix is not seen as a separate structure. Normal abdominal aorta. Normal inferior vena cava. Normal retroperitoneum. Normal urinary bladder. Normal abdominal wall. Normal osseous structures. CT/Abdomen/Pelvis without Cont IMPRESSION: 1. Nonvisualization of the appendix, indeterminate probability of appendicitis. 2. Otherwise unremarkable abdomen. Electronically Signed: Lucas Bradley, at 19:54 EDT Tel , Service support ,
[2020-01-13 19:03] LABS: Absolute Lymphocyte Count 1.47 X10^3/uL (0.83-4.51); Absolute Neutrophil Count 7.1 X10^3/uL (2.0-7.7); Basophil# 0.03 X10^3/uL; Basophil% 0.3 % (0-1); Eosinophil# 0.01 X10^3/uL; Eosinophils% 0.1 % (0-5); Hematocrit 47.3 % (37-47); Hemoglobin 16.4 g/dL (12.0-15.0); Lymphocyte # 1.47 X10^3/ul (4.0); Lymphocyte % 16.4 % (19-41); Mean Corp Hgb Conc 34.7 g/dL (32-36); Mean Corpuscular Hgb 29.1 pg (27.0-32.0); Mean Platelet Vol. 8.9 fl (6.2-12.0); Monocyte# 0.36 X10^3/uL; NRBC Flagged by Analyzer 0 % (0-5); Neutrophil # 7.08 X10^3/uL (2.7-7.7); Neutrophil % 78.9 % (47-70); Platelet Count 443 K/mm3 (150-450); RBC Distribution Width CV 12.6 % (11.6-14.6); Red Blood Count 5.63 M/mm3 (4.2-5.4)
[2020-01-13] MEDS: 0.9% Normal Saline 1,000 ML 999 ML IV ×2 (19:05→21:27)
[2020-01-13] MEDS: Ondansetron 4 MG/2 ML Vial IV (19:06)
[2020-01-13] MEDS: Morphine 4 MG/ML Syringe IV (19:06)
[2020-01-13 19:10] LABS: Red Blood Cells-Urine 0 SEEN /hpf (0-5)
[2020-01-13 19:13] LABS: Color, Urine Yellow (Yellow); Glucose, Dipstick 1000 mg/dl (Normal); Leukocyte Esterase-Dipstick 100 /ul (Negative); Nitrite-Dipstick Negative (Negative); Occult Blood-Urine 10 /ul (Negative); Protein-Dipstick 100 mg/dl (Negative); Specific Gravity, Urine 1.025 (1.002-1.030); Urine Clarity Cloudy (Clear); Urine Urobilinogen 4 mg/dl (Normal)
[2020-01-13 19:16] LABS: Bedside Glucose 114 mg/dL (70-110)
[2020-01-13 19:18] LABS: Internal QC Validated? YES +Cl - CLEAR BKGD; Pregnancy, Serum, hCG Quali. NEGATIVE Negative
[2020-01-13 19:25] LABS: Urine Bilirubin Dipstick 3 mg/dL (Negative)
[2020-01-13 19:26] LABS: Ketone-Dipstick 150 mg/dl (Negative)
--- NOTE | 2020-01-13 19:34 | ED.VISSUMM ---
- ER Visit Summary Date of Service: 01/13/20 Chief Complaint: Vomiting History of Present Illness: The patient is a [address] Gonzalez. She has a history of type 1 diabetes mellitus. She reports that at 152 this afternoon her blood sugar was 43. She took 22 units of lispro. Shortly thereafter she became nauseated and vomited. She is vomited 4 times. She reports there was a small amount of blood on the last episode. She also reports she has had diarrhea twice a day for the past 3 weeks. She denies any blood in her stools or black tarry stools. No dysuria or frequency. She does report that she has right-sided abdominal pain that she describes as a sharp, cramping pain. Is 4-10 at worst and 3-10 currently. Is worsened by nothing. Is relieved by vomiting. States this is not similar to when she is had DKA in the past. Patient denies any sick contacts. She has not been camping or the country. No possible food exposure. She does drink well water and her fianc? has had diarrhea as well. No recent antibiotics. Patient's only other complaint is a slight headache. Physical Examination: Vitals: Stable. Afebrile. General: Well-nourished and well-developed. Head: Normocephalic atraumatic. Neck: Supple, no lymphadenopathy. No JVD. Nontender. Cardiovascular: Tachycardic regular rhythm. No murmurs. Respiratory: No respiratory distress. Clear to auscultation bilaterally. Abdominal: Soft, mild tenderness palpation in the right upper and lower quadrants, nondistended, normal bowel sounds. No guarding, rebound, or peritoneal signs. Back: Nontender. Extremities: Nontender, no edema. Skin: Normal color, no rash. Neurologic: Alert and oriented ?3. Cranial nerves II through XII are intact. Normal strength and sensation. Psych: Normal affect. Test Results: CBC shows an H&H of 16.4 and 47.3, segmented for 79, lymphocytes 16. Chem-7 shows a glucose of 135. UA shows leukocytes, ketones, and glucose. She has small serum ketones. Venous blood gas shows pH 7.35. Clinical Impression(s) from Imaging Studies Abdomen/Pelvis CT 01/13/20 18:31 IMPRESSION: 1. Nonvisualization of the appendix, indeterminate probability of appendicitis. 2. Otherwise unremarkable abdomen. Electronically Signed: Lucas Bradley, at 19:54 EDT Tel , Service support , Emergency Department Course and Treatment: Patient's blood sugar decreased into the 80s while she was here. She was given an amp of D50 IV and started on a D5 drip and insulin IV. She was given Zofran and IV fluids. She is resting comfortably. Treatment Plan: Patient was discussed with Dr. Garza and Dr. Vaca. She will be admitted for further evaluation and treatment. Disposition: Admitted in serious condition. Impression: 1. Euglycemic DKA. 2. Critical care time 30 minutes. This note was generated with [facility] dictation software. It may contain incorrect words, spelling, and punctuation that were not noted in review of the chart prior to signing ED Disposition - Plan for ED Patient: Referrals: Erika Sen MD [Primary Care Provider] -
[2020-01-13 19:36] LABS: White Blood Cells 10-25 SEEN /hpf (0-5)
[2020-01-13 19:37] LABS: Bacteria 3+ /hpf (None Seen)
[2020-01-13 19:39] LABS: Mucous, Urine 3+ /hpf (<or=2+)
[2020-01-13 19:44] LABS: Squamous Epithelial Cells - UA 25-50 SEEN /hpf (5-10)
[2020-01-13 19:47] LABS: Hyaline Cast 10-25 SEEN /lpf (0-5)
[2020-01-13 20:01] LABS: Blood Gas Specimen Type VEN; O2 Delivery Device Room Air; SITE OTHER; Time Given 1949; VBG pH 7.35 (7.32-7.42)
[2020-01-13 20:02] LABS: VBG BASE EXCESS -3 mmol/L (-1.0-3.5); VBG Bicarbonate 22 mmol/L (22-26); VBG PO2 38 mmHg (25-40); VBG SO2 70 % (50-70); VBG pCO2 40.6 mmHg (41-51)
[2020-01-13 20:02] LABS: Hemoglobin A1c 11.7 % (3.8-5.6)
[2020-01-13] MEDS: Dextrose 50%-Water 25 GM/50 ML DISP.SYRIN IV (20:08)
--- NOTE | 2020-01-13 20:09 | ED.RN ---
per pt own glucose monitor, blood sugar 86. MD at bedside and aware.
[2020-01-13 20:29] LABS: ALB/GLOB Ratio 1.2 RATIO (0.9-2.4); AST(SGOT) 20 U/L (15-37); Alanine Aminotransfer ALT/SGPT 23 U/L (13-56); Albumin, Serum 4.5 g/dL (3.2-5.0); Alkaline Phosphatase 120 U/L (45-117); Anion Gap 14 (5-15); BUN 16 mg/dL (7-18); BUN/Creat Ratio 22.2 RATIO (10-20); Calcium,Total 9.9 mg/dL (8.5-10.1); Chloride 101 mmol/L (98-107); Creatinine, Serum 0.72 mg/dL (0.55-1.02); EST Glomerular Filtration Rate 108 mL/min (>60); Est Glom Filt Rate - Afr Amer 130 mL/min (>60); Estimated Creatinine Clearance 115.06 ml/min; Globulin 3.6 g/dL (2.2-4.2); Glucose 135 mg/dL (74-106); Lipase 73 U/L (73-393); Magnesium 1.9 mg/dL (1.6-2.6); Phosphorus 3.3 mg/dL (2.5-4.9); Potassium 3.9 mmol/L (3.5-5.1); Protein, Total 8.1 g/dL (6.4-8.2); Sodium Level 137 mmol/L (136-145)
--- NOTE | 2020-01-13 21:01 | HP.PCM_ITS ---
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 (3) History of hepatitis A Status: Chronic (4) Asthma Status: Chronic Qualifiers: Asthma severity: mild Asthma persistence: unspecified Asthma complication type: uncomplicated Qualified Code(s): J45.909 - Unspecified asthma, uncomplicated (5) Type I diabetes mellitus Status: Chronic Qualifiers: Diabetes mellitus complication status: with other specified complication Qualified Code(s): E10.69 - Type 1 diabetes mellitus with other specified complication History of Present Illness Date of Admission: 01/13/20 Chief Complaint: nausea and vomiting The patient is a 19 year old F with a significant history of type 1 diabetes; asthma and hepatitis A who presents to the emergency department with 1 day history of nausea and vomiting. Patient was at work when her symptoms started. Associated with her symptoms is chills and diaphoresis. Also she had loose stools. Her blood sugar was 483. She took 22 units of quick acting insulin. Further, she had abdominal pain. Also in the last 3 weeks patient has had intermittent loose stools. Her bowel pattern is 2-3 bowel movement per day and this has not changed. Patient reports occasional drinking from well water since she and her boyfriend moved into a new home. Also, her boyfriend has had loose stools x 1 week. At the emergency department blood work showed small ketones. VBG showed a pH of 7.35. Bicarbonate was 22. Blood glucose on BMP was 135. Emergent department doctor discussed the case with Side Piece Coverer and it was recommended that patient be started on insulin drip with dextrose infusion. Past Medical History Past Medical History (Chronic Problems): Chronic Problems (Last Reviewed 01/13/20 @ 21:[address] Antonio Vaca MD) Cannabis use in remission (Chronic) History of hepatitis A (Chronic) Asthma (Chronic) Type I diabetes mellitus (Chronic) Medical History: Medical History (Last Reviewed 01/13/20 @ 21:[address] Antonio Vaca MD) Asthma J45.909 Diabetes type 1, controlled E10.9 Dx : age 8 Last exacerbation : DKA : 07/07 Hypoglycemic episode : never ER visit : 07/07 Allergies Penicillins Allergy (Verified 01/13/20 17:39) Unknown Sulfa (Sulfonamide Antibiotics) Allergy (Verified 01/13/20 17:39) Unknown prednisone Adverse Reaction (Verified 01/13/20 17:39) Vomiting bee stings Allergy (Severe, Uncoded 01/13/20 17:39) Anaphylaxis Home Medications: Ambulatory Orders Medication Instructions Recorded Albuterol Sulfate [Ventolin Hfa] 2 puff INHALATION Q4H PRN PRN 08/25/18 Insulin Glargine,Hum.rec.anlog 75 unit SUBCUT QHS 11/10/19 [Basaglar Kwikpen U-100] Insulin Lispro [Insulin Lispro 0 unit SQ TID 11/10/19 Kwikpen U-100] Surgical History: Surgical History (Last Reviewed 01/13/20 @ 21:[address] Antonio Vaca MD) History of placement of ear tubes Z86.69 Surgical History: tonsillectomy, - - control insertion and ear tubes, T+A. Psychiatric History: No pertinent psych hx LIP AND GATE BUILDER History: No pertinent LIP AND GATE BUILDER history Smoking Status: Never smoker Drugs: Marijuana - Quit about 6 weeks ago. - *Family History Maternal Family History: Family History (Last Reviewed 01/13/20 @ 21:[address] Antonio Vaca MD) Grandmother Diabetes Sister Asthma Brother Asthma History Items: Heart Disease Paternal Family History: Family History (Last Reviewed 01/13/20 @ 21:[address] Antonio Vaca MD) Grandmother Diabetes Sister Asthma Brother Asthma History Items: Diabetes Sibling Family History: Family History (Last Reviewed 01/13/20 @ 21:[address] Antonio Vaca MD) Grandmother Diabetes Sister Asthma Brother Asthma History Items: Asthma Review of Systems Constitutional: Reports: Chills. Denies: Fever, Weight Change HEENT: Denies: Head Aches, Sinus Congestion, Sinus Drainage Cardiovascular: Reports: Light Headedness. Denies: Chest Pain, Palpitations Respiratory: Denies: Cough, Shortness of breath at rest, Sputum production Gastrointestinal: Reports: Abdominal Pain, Diarrhea, Nausea, Vomiting Genitourinary: Reports: Frequency. Denies: Dysuria Musculoskeletal: Denies: Joint Pain, Joint Tenderness Skin: Denies: Rash, Wounds Neurological: Denies: Numbness, Tingling, Focal weakness Psychiatric: Denies: Anxiety, Depression, Homicidal Ideations, Suicidal Ideations Hematologic/ Lymphatic: Denies: Easy Bruising, Easy Bleeding VTE Information - Inpt Only VTE Present on Admission: No VTE Mechan Device Prophylaxis: None VTE Pharm Prophylaxis ordered?: No Reason prophylaxis not ordered:: Treatment Not Indicated - Low risk. Encouraged to ambulate. - Physical Exam Vitals/I&O's: Vital Signs Temp Pulse Resp BP Pulse Ox 97.9 F 128 H 20 H 110/70 99 01/13/20 17:36 01/13/20 17:36 01/13/20 17:36 01/13/20 17:36 01/13/20 17:36 Oxygen Delivery Method Room Air Weight: 58.967 kg Body Mass Index (BMI) 26.2 Finger Stick Blood Glucose 114 General: Alert, Oriented x3, Cooperative HEENT: Atraumatic, PERRLA, EOMI, Normocephalic Neck: Supple, No JVD, Negative Carotid Bruits Lungs: Clear to auscultation, Normal air movement, No rhonchi, No wheeze, No rales Cardiovascular: Regular rate, Regular Rhythm, Normal S1, Normal S2, No murmurs Abdomen: Bowel Sounds Present, Soft, Non Tender Extremities: No edema, Capillary Refill Less than 3 Seconds Skin: No rashes, No breakdown Musculoskeletal: No Tenderness to Palpation of Joints or Extremities Neurological: Cranial nerves II-XII grossly intact Psych/Mental Status: Normal Affect, Appropriate Microbiology Past 72 Hours 01/13/20 19:05 Stool C. difficile DNA Amplification - Final 01/13/20 19:05 Stool Stool Lactoferrin - Final Laboratory Results 01/13/20 18:46: WBC 9.0, RBC 5.63 H, Hgb 16.4 H, Hct 47.3 H, MCV 84.0, MCH 29.1, MCHC 34.7, RDW Std Deviation 38.0, RDW Coeff of Marilynn 12.6, Plt Count 443, MPV 8. 9, Immature Gran % (Auto) 0.300, Neut % (Auto) 78.9 H, Lymph % (Auto) 16.4 L, [place] % (Auto) 4.0, Eos % (Auto) 0.1, Baso % (Auto) 0.3, Absolute Neuts (auto) 7.1, Absolute Lymphs (auto) 1.47, Nucleated RBC % 0 01/13/20 18:46: Sodium 137, Potassium 3.9, Chloride 101, Carbon Dioxide 22.0, Anion Gap 14, BUN 16, Creatinine 0.72, Estim Creat Clear Calc 115.06, Est GFR (MDRD) Af Amer 130, Est GFR (MDRD) Non-Af 108, BUN/Creatinine Ratio 22.2 H, Glucose 135 H, Calcium 9.9, Phosphorus 3.3, Magnesium 1.9, Total Bilirubin 0.60, AST 20, ALT 23, Alkaline Phosphatase 120 H, Troponin I < 0.015, Total Protein 8.1, Albumin 4.5, Globulin 3.6, Albumin/Globulin Ratio 1.2, Lipase 73 01/13/20 18:46: Acetone Level SMALL H 01/13/20 18:46: Hemoglobin A1c 11.7 H 01/13/20 18:46: Serum , Qual NEGATIVE 01/13/20 19:04: Urine Color Yellow, Urine Clarity Cloudy, Urine pH 5.0, Ur Specific [place] 1.025, Urine Protein 100 H, Urine Glucose (UA) 1000 H, Urine Ketones 150 H, Urine Occult Blood 10 H, Urine Nitrite Negative, Urine Bilirubin 3 H, Urine Urobilinogen 4 H, Ur Leukocyte Esterase 100 H, Urine RBC 0 SEEN, Urine WBC 10-25 SEEN, Ur Squamous Epith Cells 25-50 SEEN, Urine Bacteria 3+, Hyaline Casts 10-25 SEEN, Urine Mucus 3+ 01/13/20 19:13: POC Glucose 114 H 01/13/20 19:49: Specimen Type LUIS, Sample Site OTHER, VBG pH 7.35, VBG pO2 38, VBG O2 Sat (Calc) 70, VBG O2 Content TNP, VBG Base Excess -3 L, POC Mix VBG pCO2 Pt Tmp 40.6 L, O2 Delivery Device Room Air, Blood Gas Notified Whom ED , Blood Gas Notified Time 194 Current Medications Dextrose (D50w Syringe) 0 gm IV X1 PRN; Protocol PRN Reason: Hypoglycemia Protocol Potassium Chloride 40 meq/ (Dextrose/Sodium Chloride) 1,020 mls @ 100 mls/hr IV .[id number] [facility] Insulin Human Lispro 100 unit/ (Sodium Chloride) 100 mls @ 5.897 mls/hr IV .[id number] [facility]; Protocol Assessment/Plan All Active Problems (Last Reviewed 01/13/20 @ 21:[address] Antonio Vaca MD) DKA (diabetic ketoacidoses) (Acute) The patient is a 19 year old F with a significant history of type 1 diabetes; asthma and hepatitis A who presents emergency department with 1 day history of nausea and vomiting; diarrhea; and with a recent high blood glucose and ketonemia DKA Her blood glucose log today is [id number] Emergent department doctor discussed the case with financial systems analyst and Dextrose infusion with insulin drip was recommended. D5 half-normal saline with 40 mEq of potassium started at 100 mL's per hour at emergency department; insulin drip also started at the emergency department. Increase rate of D5 half-normal saline with 40 of potassium to 200 mL's per hour. Continue insulin drip. BMP every 4 hours. Replace potassium Per ICU electrolyte protocol. Keep n.p.o. Morphine IV PRN pain. Zofran IV PRN for nausea. Side Piece Coverer consult. Will not resume home long-acting blood glucose until her blood glucose is stable. Diarrhea O&P and enteric pathogen panel was obtained at the emergency department. Follow Abnormal urinalysis Patient with 3+ bacteria; increase leukocyte esterase. Negative nitrites. 25- 50 of epithelial cells. Patient denies any other urinary symptoms except increased urinary frequency which she attributes to history of DKA. DVT prophylaxis Low risk Encouraged to ambulate. Inpatient E&M: [id number] Init Hosp L3
[2020-01-13] MEDS: Potassium Chloride 40 MEQ in Dext 5%-0.45% NS 1,000 ML 100 MEQ IV (21:16)
[2020-01-13 22:05] LABS: Bedside Glucose 148 mg/dL (70-110)
[2020-01-13 22:30] LABS: Bedside Glucose 117 mg/dL (70-110)
[2020-01-13] MEDS: Potassium Chloride 40 MEQ in Dext 5%-0.45% NS 1,000 ML 200 MEQ IV (22:50)
[2020-01-13] MEDS: TITRATION PARAMETER CHANGE 1 EACH IV (22:51)
[2020-01-13 23:07] LABS: Anion Gap 8 (5-15); BUN 14 mg/dL (7-18); BUN/Creat Ratio 25.1 RATIO (10-20); Calcium,Total 8.1 mg/dL (8.5-10.1); Chloride 108 mmol/L (98-107); Creatinine, Serum 0.56 mg/dL (0.55-1.02); EST Glomerular Filtration Rate 145 mL/min (>60); Est Glom Filt Rate - Afr Amer 176 mL/min (>60); Estimated Creatinine Clearance 132.71 ml/min; Glucose 120 mg/dL (74-106); Potassium 3.4 mmol/L (3.5-5.1); Sodium Level 140 mmol/L (136-145)
[2020-01-13 23:26] LABS: Bedside Glucose 101 mg/dL (70-110)
[2020-01-14] VITALS (15 sets, daily range): BP systolic 100–144; BP diastolic 50–82; PULSE 73–97; RESP 14–24; TEMP 36.4–37.1; O2SAT 98–100
--- NOTE | 2020-01-14 00:30 | NURSING ---
instructs this RN to stop insulin drip, start diet, feed patient, wait an hour and then stop D5/.45NS KCl fluids. Change fingerstick glucometers to AC/HS+0200. Pt notified of all orders and states appreciation.
[2020-01-14 02:26] LABS: Bedside Glucose 239 mg/dL (70-110)
[2020-01-14] MEDS: 0.9% Saline Lock 10 ML Syringe IV (03:18)
[2020-01-14] MEDS: Insulin Lispro 100 UNIT/ML INSULN.PEN SC ×2 (03:18→08:26)
[2020-01-14 05:28] LABS: Absolute Lymphocyte Count 1.96 X10^3/uL (0.83-4.51); Absolute Neutrophil Count 3.8 X10^3/uL (2.0-7.7); Basophil# 0.02 X10^3/uL; Basophil% 0.3 % (0-1); Eosinophil# 0.04 X10^3/uL; Eosinophils% 0.6 % (0-5); Hematocrit 36.3 % (37-47); Hemoglobin 12.3 g/dL (12.0-15.0); Lymphocyte # 1.96 X10^3/ul (4.0); Lymphocyte % 31.6 % (19-41); Mean Corp Hgb Conc 33.9 g/dL (32-36); Mean Corpuscular Hgb 29.1 pg (27.0-32.0); Mean Corpuscular Volume 85.8 fL (81-99); Monocyte% 6.5 % (0-10); NRBC Flagged by Analyzer 0 % (0-5); Neutrophil # 3.76 X10^3/uL (2.7-7.7); Neutrophil % 60.7 % (47-70); Platelet Count 309 K/mm3 (150-450); RBC Distribution Width CV 12.8 % (11.6-14.6); RBC Distribution Width SD 39.4 fl (35.1-43.9); Red Blood Count 4.23 M/mm3 (4.2-5.4); White Blood Count 6.2 K/mm3 (4.4-11.0)
[2020-01-14 05:45] LABS: Anion Gap 9 (5-15); BUN 11 mg/dL (7-18); BUN/Creat Ratio 22.9 RATIO (10-20); Calcium,Total 7.8 mg/dL (8.5-10.1); Chloride 105 mmol/L (98-107); Creatinine, Serum 0.48 mg/dL (0.55-1.02); EST Glomerular Filtration Rate 172 mL/min (>60); Est Glom Filt Rate - Afr Amer 208 mL/min (>60); Estimated Creatinine Clearance 154.83 ml/min; Glucose 257 mg/dL (74-106); Potassium 3.6 mmol/L (3.5-5.1); Sodium Level 136 mmol/L (136-145)
--- NOTE | 2020-01-14 07:29 | CON.PCM_ITS ---
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 (3) History of hepatitis A Status: Chronic (4) Asthma Status: Chronic Qualifiers: Asthma severity: mild Asthma persistence: unspecified Asthma complication type: uncomplicated Qualified Code(s): J45.909 - Unspecified asthma, uncomplicated (5) Type I diabetes mellitus Status: Chronic Qualifiers: Diabetes mellitus complication status: with other specified complication Qualified Code(s): E10.69 - Type 1 diabetes mellitus with other specified complication Reason for Consult Date of Consultation: 01/14/20 Reason for Consultation: DKA History of Present Illness: The patient is a 19 year old F, with past medical history listed below, who presented [facility] on 01/13/2020 secondary to vomiting. Lc keating does have a history of type 1 diabetes mellitus and reports her previous hemoglobin A1c was over 12. Patient states that this afternoon she became hypoglycemic after 20 units of lispro. Patient had nausea and vomiting x4 episodes with a small amount of blood on the last episode. Patient is also had diarrhea twice a day for the last 3 weeks that is been attributed to a recent hep A infection. Patient denied any blood in her stools, but did have some right-sided abdominal pain that was described as sharp and cramping and 4 out of 10. In the ER, patient appeared dehydrated and had a glucose of 135. Patient did have some ketones and blood in urine reported. CT of the abdomen was relatively unremarkable. Patient was given D50 IV secondary to hypoglycemia and started on D5 drip and admitted to the intensive care unit. Overnight, patient continued to do well. Patient was transitioned to oral intake and received 75 units of long-acting insulin. Patient states that she has been doing this dose for quite some time. Patient does follow with an movie star in [place]. Patient states that she feels back to her baseline this morning. Patient does report that she was recently diagnosed with hepatitis A and feels this is the cause of her diarrhea. Patient believes she received this from flooding with her well water. Review of systems otherwise negative from a constitutional, HEENT, respiratory, cardiovascular, GI, genitourinary, musculoskeletal, skin, neurologic, psychiatric and hematologic system unless stated above. Past Medical History Past Medical History (Chronic Problems): Chronic Problems (Last Reviewed 01/13/20 @ 21:[address] Antonio Vaca MD) Cannabis use in remission (Chronic) History of hepatitis A (Chronic) Asthma (Chronic) Type I diabetes mellitus (Chronic) Medical History: Medical History (Last Reviewed 01/13/20 @ 21:[address] Antonio Vaca MD) Asthma J45.909 Diabetes type 1, controlled E10.9 Dx : age 8 Last exacerbation : DKA : 07/07 Hypoglycemic episode : never ER visit : 07/07 Allergies Penicillins Allergy (Verified 01/13/20 17:39) Unknown Sulfa (Sulfonamide Antibiotics) Allergy (Verified 01/13/20 17:39) Unknown prednisone Adverse Reaction (Verified 01/13/20 17:39) Vomiting bee stings Allergy (Severe, Uncoded 01/13/20 17:39) Anaphylaxis Home Medications: Ambulatory Orders Medication Instructions Recorded Albuterol Sulfate [Ventolin Hfa] 2 puff INHALATION Q4H PRN PRN 08/25/18 Insulin Glargine,Hum.rec.anlog 75 unit SUBCUT QHS 11/10/19 [Basaglar Kwikpen U-100] Insulin Lispro [Insulin Lispro 0 unit SQ TID 11/10/19 Kwikpen U-100] Surgical History: Surgical History (Last Reviewed 01/13/20 @ 21:[address] Antonio Vaca MD) History of placement of ear tubes Z86.69 Surgical History: tonsillectomy, - - control insertion and ear tubes, T+A. Psychiatric History: No pertinent psych hx POLITICAL RESEARCHER History: No pertinent POLITICAL RESEARCHER history Smoking Status: Never smoker Drugs: Marijuana - Quit about 6 weeks ago. - *Family History Paternal Family History: Family History (Last Reviewed 01/13/20 @ 21:[address] Antonio Vaca MD) Grandmother Diabetes Sister Asthma Brother Asthma History Items: Diabetes Sibling Family History: Family History (Last Reviewed 01/13/20 @ 21:[address] Antonio Vaca MD) Grandmother Diabetes Sister Asthma Brother Asthma History Items: Asthma Maternal Family History: Family History (Last Reviewed 01/13/20 @ 21:[address] Antonio Vaca MD) Grandmother Diabetes Sister Asthma Brother Asthma History Items: Heart Disease Review of Systems Comment: See HPI Objective: All imaging was personally reviewed. Agree with formal interpretation. - Physical Exam Vitals/I&O's: Vital Signs Temp Pulse Resp BP Pulse Ox 36.4 C L 73 15 100/50 L 100 01/14/20 04:00 01/14/20 06:00 01/14/20 06:00 01/14/20 06:00 01/14/20 06:00 Oxygen Delivery Method Room Air Weight: 53.4 kg Body Mass Index (BMI) 23.6 Finger Stick Blood Glucose 148 Intake and Output for Last 24 Hours 01/12/20 01/13/20 01/14/20 23:59 23:59 23:59 Intake Total 2217 / 2217 979.92 / 979.92 Output Total 1250 / 1250 Balance 2217 / 2217 -270.08 / -270.08 General: Alert, Oriented x3, Cooperative, No apparent distress, - - No conversational dyspnea. HEENT: Atraumatic, PERRLA, EOMI, Normocephalic, - - No scleral icterus or injection noted Oral: Moist Mucosa, No Gingival or Mucosal Lesions/ Ulcerations Neck: Supple, No JVD, No Nodes, Trachea Midline Lungs: Clear to auscultation, Normal air movement, No rhonchi, No wheeze, No rales Cardiovascular: Regular rate, Regular Rhythm, Normal S1, Normal S2, No murmurs, No rub noted, No Gallop Abdomen: Bowel Sounds Present, Soft, Non Tender, Non-Distended Extremities: No clubbing, No cyanosis, No edema Skin: No rashes, No breakdown Musculoskeletal: No Tenderness to Palpation of Joints or Extremities, No Muscle Wasting Lymphatic: No Cervical, Supraclavicular, or Inguinal Adenopathy Neurological: Cranial nerves II-XII grossly intact, Neuro grossly intact, Motor Exam 5/5 strength throughout Psych/Mental Status: Alert and oriented to time, place, person, mood and affect Microbiology Past 72 Hours 01/13/20 19:05 Stool C. difficile DNA Amplification - Final 01/13/20 19:05 Stool Stool Lactoferrin - Final Laboratory Results 01/13/20 18:46: WBC 9.0, RBC 5.63 H, Hgb 16.4 H, Hct 47.3 H, MCV 84.0, MCH 29.1, MCHC 34.7, RDW Std Deviation 38.0, RDW Coeff of Marilynn 12.6, Plt Count 443, MPV 8.9, Immature Gran % (Auto) 0.300, Neut % (Auto) 78.9 H, Lymph % (Auto) 16.4 L, Jess[place] % (Auto) 4.0, Eos % (Auto) 0.1, Baso % (Auto) 0.3, Absolute Neuts (auto) 7.1, Absolute Lymphs (auto) 1.47, Nucleated RBC % 0 01/13/20 18:46: Sodium 137, Potassium 3.9, Chloride 101, Carbon Dioxide 22.0, Anion Gap 14, BUN 16, Creatinine 0.72, Estim Creat Clear Calc 115.06, Est GFR (MDRD) Af Amer 130, Est GFR (MDRD) Non-Af 108, BUN/Creatinine Ratio 22.2 H, Glucose 135 H, Calcium 9.9, Phosphorus 3.3, Magnesium 1.9, Total Bilirubin 0.60, AST 20, ALT 23, Alkaline Phosphatase 120 H, Troponin I < 0.015, Total Protein 8.1, Albumin 4.5, Globulin 3.6, Albumin/Globulin Ratio 1.2, Lipase 73 01/13/20 18:46: Acetone Level SMALL H 01/13/20 18:46: Hemoglobin A1c 11.7 H 01/13/20 18:46: Serum , Qual NEGATIVE 01/13/20 19:04: Urine Color Yellow, Urine Clarity Cloudy, Urine pH 5.0, Ur Specific [place] 1.025, Urine Protein 100 H, Urine Glucose (UA) 1000 H, Urine Ketones 150 H, Urine Occult Blood 10 H, Urine Nitrite Negative, Urine Bilirubin 3 H, Urine Urobilinogen 4 H, Ur Leukocyte Esterase 100 H, Urine RBC 0 SEEN, Urine WBC 10-25 SEEN, Ur Squamous Epith Cells 25-50 SEEN, Urine Bacteria 3+, Hyaline Casts 10-25 SEEN, Urine Mucus 3+ 01/13/20 19:13: POC Glucose 114 H 01/13/20 19:49: Specimen Type LUIS, Sample Site OTHER, VBG pH 7.35, VBG pO2 38, VBG O2 Sat (Calc) 70, VBG O2 Content TNP, VBG Base Excess -3 L, POC Mix VBG pCO2 Pt Tmp 40.6 L, O2 Delivery Device Room Air, Blood Gas Notified Whom ED , Blood Gas Notified Time 194801/13/20 21:13: POC Glucose 148 H 01/13/20 22:04: POC Glucose 117 H 01/13/20 22:25: Sodium 140, Potassium 3.4 L, Chloride 108 H, Carbon Dioxide 24.0, Anion Gap 8, BUN 14, Creatinine 0.56, Estim Creat Clear Calc 132.71, Est GFR (MDRD) Af Amer 176, Est GFR (MDRD) Non-Af 145, BUN/Creatinine Ratio 25.1 H, Glucose 120 H, Calcium 8.1 L 01/13/20 23:19: POC Glucose 101 01/14/20 02:19: POC Glucose 239 H 01/14/20 05:20: WBC 6.2, RBC 4.23, Hgb 12.3, Hct 36.3 L, MCV 85.8, MCH 29.1, MCHC 33.9, RDW Std Deviation 39.4, RDW Coeff of Marilynn 12.8, Plt Count 309, MPV 9.0, Immature Gran % (Auto) 0.300, Neut % (Auto) 60.7, Lymph % (Auto) 31.6, [place] % (Auto) 6.5, Eos % (Auto) 0.6, Baso % (Auto) 0.3, Absolute Neuts (auto) 3.8, Absolute Lymphs (auto) 1.96, Nucleated RBC % 0 01/14/20 05:20: Sodium 136, Potassium 3.6, Chloride 105, Carbon Dioxide 22.0, Anion Gap 9, BUN 11, Creatinine 0.48 L, Estim Creat Clear Calc 154.83, Est GFR (MDRD) Af Amer 208, Est GFR (MDRD) Non-Af 172, BUN/Creatinine Ratio 22.9 H, Glucose 257 H, Calcium 7.8 L Current Medications Albuterol Sulfate (Ventolin Aerosols) 2.5 mg INHALATION Q2H PRN PRN PRN Reason: sob/wheezing Dextrose (D50w Syringe) 0 gm IV X1 PRN; Protocol PRN Reason: HYPOGLYCEMIA Dextrose (D50w Syringe) 0 gm IV X1 PRN; Protocol PRN Reason: Hypoglycemia Glucagon () 1 mg IM .X1 PRN PRN Reason: Hypoglycemia Sodium Chloride () 250 mls @ 15 mls/hr IV .[id number] PRN PRN Reason: Saline Flush Sodium Chloride () 250 mls @ 15 mls/hr IV .[id number] PRN PRN Reason: Additional IVPB Infusion Insulin Glargine (Lantus (Bk)) 75 units SC QHS ADARSH Last Admin: 01/14/20 03:17 Dose: 75 u Documented by: Insulin Human Lispro (Humalog Kwikpen (Bk)) 0 unit SC ACHS [facility]; Protocol Last Admin: 01/14/20 03:18 Dose: 3 u Documented by: Melatonin (Melatonin) 3 mg PO QHS PRN PRN PRN Reason: INSOMNIA Morphine Sulfate () 2 mg IV Q3H PRN PRN PRN Reason: Pain Score 6-10/10 Ondansetron HCl (Zofran) 4 mg IV Q8H PRN PRN PRN Reason: NAUSEA/VOMITING Sodium Chloride () 10 - 40 ml IV UD PRN PRN Reason: SALINE FLUSH Last Admin: 01/14/20 03:18 Dose: 10 ml Documented by: Clinical Impression(s) from Imaging Studies Abdomen/Pelvis CT 01/13/20 18:31 IMPRESSION: 1. Nonvisualization of the appendix, indeterminate probability of appendicitis. 2. Otherwise unremarkable abdomen. Electronically Signed: Lucas Bradley, at 19:54 EDT Tel , Service support , Assessment/Plan RECOMMENDATIONS: 1. Watch closely for hypoglycemia 2. Okay to discontinue fluid resuscitation 3. Increase activity as tolerated IMPRESSIONS: 1. Type 1 diabetes mellitus with hypoglycemia Patient was not acidotic, but did have ketones on presentation. Management is complicated secondary to reported concurrent hepatitis A infection. Some concern for the reported basal insulin dose. This is significantly higher than what would be expected given her weight. Patient has an elevated hemoglobin A1c. Unclear if this is secondary to poor diet choices versus escalation of therapy secondary to noncompliance. Would monitor until lunch to be sure there is no hypoglycemia. Follow-up with endocrine as an outpatient 2. Diarrhea with reported hepatitis A/uncontrolled diabetes mellitus/asthma Complicates care, management, recovery and prognosis. Patient does not appear to be in an acute exacerbation of asthma at this time. No wheezing on exam, so bronchodilators are likely not indicated. Inpatient E&M: [id number] Init Hosp L2
[2020-01-14 08:36] LABS: Bedside Glucose 229 mg/dL (70-110)
--- NOTE | 2020-01-14 09:40 | CASEMGMT ---
SARA NICOLE OFFICE SERVICES ASSOCIATE CM to room to meet with patient for initial transition planning/care coordination assessment. SARA NICOLE introduced self and role at [facility]. Pt voices understanding and consents to assessment at this time. Pt resting in bed in no distress at this time. Pt is A/O at this time and answers all questions appropriately. Care providers, pharmacy, and demographics verified/updated at this time. PCP: Dr Sen Specialists: Merchandise Flow Manager in [place] but does not remember name of doctor. States would like to switch to local patch press operator, Dr Chow and agreeable to departmental secretary making an appt for her. [place] made aware. Pt given Rac card for Dr Chow. Pt also made aware of the Diabetic Clinic @ [facility] and given Rac card. [facility]erred [facility]acy: [facility] Insurance: [employer] Prescription Benefit: Yes Living Will/HPOA: Pt does not currently have LW/HCPOA and declines info at this time LNOK: Father, Dar Living Arrangements: Lives w/her fiance. Independent. Works part-time. Transportation: Pt states she has her permit and is hoping to get her license in January. Her grandfather provides transportation and will be taking her home @ d/c. DME: Has a functioning glucometer and has a Free-style [employer] Glucose Meter Pt states no need for further DME at this time. HHC/SNF: No history of either. No needs identified Pt wishes to return home and states has no concerns with going home at time of discharge. CM to follow for any further discharge planning/needs. Pt voices no further concerns/needs at this time. Advised pt to ask for CM if any further questions/concerns/needs arise. Voices understanding. PLAN: Home Melissa MEAD RN, CM
--- NOTE | 2020-01-14 11:13 | DCINST_ITS ---
You will use the following diet at home:: Calorie/Carbohydrate Controlled (specify 1200, 1400, etc) - 1800 matthew. Your food should be the consistency of: Regular Discharge Activity: Return to Normal Activity Weight Bearing Status: Full weight bearing Call your doctor if you observe: Fever of 101 or Higher, Shortness of breath, Dizziness, Fainting spells, Chest pain, Increased palpitations (irregular heartbeat), Uncontrolled pain Additional Instructions: Follow-up with your auto service advisor in 1 to 2 weeks. Allergies/Adverse Reactions: Allergies Penicillins Allergy (Verified 01/13/20 17:39) Unknown Sulfa (Sulfonamide Antibiotics) Allergy (Verified 01/13/20 17:39) Unknown prednisone Adverse Reaction (Verified 01/13/20 17:39) Vomiting bee stings Allergy (Severe, Uncoded 01/13/20 17:39) Anaphylaxis Medications to take at Discharge Albuterol Sulfate [Ventolin Hfa] 2 puff INHALATION Q4H PRN PRN 08/25/18 Insulin Glargine,Hum.rec.anlog [Basaglar Kwikpen U-100] 75 unit SUBCUT QHS 11/10/19 Insulin Lispro [Insulin Lispro Kwikpen U-100] 0 unit SQ TID 11/10/19 Primary Care Physician: Erika Sen MD [Primary Care Provider] - Please follow up with your Primary Care Physician in: 1 weeks. Test Results: Test results from this visit will be discussed in further detail at your follow- up appointment, if applicable.
[2020-01-14] MEDS: Insulin Lispro 100 UNIT/ML INSULN.PEN 16 UNIT SC (12:42)
[2020-01-14 12:46] LABS: Bedside Glucose 455 mg/dL (70-110)
--- NOTE | 2020-01-14 13:03 | PCM.DC.SUM ---
Discharge Date and Diagnosis Date of Admission: 01/13/20 Date of Discharge: 01/14/20 - Primary Discharge Diagnosis Acute Problems: #1 uncontrolled type 1 diabetes mellitus with hypoglycemia and hyperglycemia. #2 no evidence of DKA. - Secondary Discharge Diagnosis Chronic Problems: Chronic Problems (Last Reviewed 01/13/20 @ 21:[address] Antonio Vaca MD) Cannabis use in remission (Chronic) History of hepatitis A (Chronic) Asthma (Chronic) Type I diabetes mellitus (Chronic) Hospital Course and Treatment Imaging Results: Clinical Impression(s) from Imaging Studies Abdomen/Pelvis CT 01/13/20 18:31 IMPRESSION: 1. Nonvisualization of the appendix, indeterminate probability of appendicitis. 2. Otherwise unremarkable abdomen. Electronically Signed: Lucas Mirna, at 19:54 EDT Tel , Service support , Dr. Garza, critical care. Operations: None Procedures: None Summary of Care Provided: Patient seen and examined on the day of discharge and appeared to be stable to be discharged home. On the day of discharge, patient's blood sugar was as low as 101 mg/dL and it went up to 455 mg/dL. There was no evidence of DKA. Her vital signs were stable. Patient takes 75 of Lantus daily which is a very high dose compared to her weight and we were concerned about hypoglycemia. Actually her blood sugar afterwards was high at 455 mg/dL for which she received 60 units of Humalog insulin for sliding scale. The patient is a 19 year old F presented to the emergency room because of nausea and vomiting as well as abdominal pain. Although her blood sugar log on the day of admission revealed high blood glucose of 483, 428, 414, 273, there was no evidence of DKA. On admission, blood glucose was 135 mg/dL, serum carbon dioxide was 24 and anion gap was 14. Obviously there was no evidence of diabetic ketoacidosis. There was small serum acetone detected. Her routine blood work was unremarkable. VBG revealed pH of 7.35. CT scan abdomen and pelvis performed because of the abdominal pain and showed no evidence of acute intra-abdominal pathology. Patient was admitted to the intensive care unit and she was started on IV insulin drip as well as IV fluids With dextrose 5% half-normal saline. Her serum bicarb and anion gap remained normal. Her blood sugar initially improved. IV insulin drip discontinued. On the day of discharge, blood sugar was as low as 101 mg/dL and in the afternoon, it went up to 455 mg/dL for which she received 16 units of Humalog insulin. Patient did eat and she felt better, she had no more nausea or vomiting and she denied any more abdominal pain. Her vital signs remained stable. Initially, we were concerned that she is receiving high dose of Lantus which is 75 units at night compared to her weight and we were thinking of decreasing the dose of Lantus but because his sugar went up to 455 mg/dL before discharge, we continued same dose of Lantus which is 75 mg subcu nightly. Her hemoglobin A1c was 11.7 which came down from 12.5% on November 10, 2019. Patient discharged home in a stable medical condition, discharged on the same doses of Lantus insulin without any changes, highly recommended to follow-up with her intertype operator in 1 to 2 weeks, recommended follow-up with PCP in 1 week. - Physical Exam Vitals/I&O's: Vital Signs Temp Pulse Resp BP Pulse Ox 98.5 F 85 19 H 104/53 L 100 01/14/20 12:00 01/14/20 12:00 01/14/20 12:00 01/14/20 12:01/14/20 12:00 Oxygen Delivery Method Room Air Weight: 117 lb 11.629 oz Body Mass Index (BMI) 23.6 Finger Stick Blood Glucose 148 Intake and Output for Last 24 Hours 01/12/20 01/13/20 01/14/20 23:59 23:59 23:59 Intake Total 2217 / 2217 979.92 / 979.92 Output Total 1250 / 1250 Balance 2217 / 2217 -270.08 / -270.08 General: Alert, Oriented x3, Cooperative, No apparent distress HEENT: Atraumatic, PERRLA, EOMI, Normocephalic Oral: Moist Mucosa, No Gingival or Mucosal Lesions/ Ulcerations Neck: Supple, No JVD, Negative Carotid Bruits, Trachea Midline, Thyroid Normal Size and Texture Lungs: Clear to auscultation, Normal air movement, No rhonchi, No wheeze, No rales Cardiovascular: Regular rate, Regular Rhythm, Normal S1, Normal S2, PMI Normal Abdomen: Bowel Sounds Present, Soft, Non Tender, Non-Distended, No Hepato-splenomegaly Extremities: No clubbing, No cyanosis, No edema Skin: No rashes, No breakdown Lymphatic: No Cervical, Supraclavicular, or Inguinal Adenopathy Neurological: Cranial nerves II-XII grossly intact, Neuro grossly intact Psych/Mental Status: Normal Affect, Appropriate Microbiology Past 72 Hours 01/13/20 19:05 Stool Enteric Bacteriology - Final 01/13/20 19:05 Stool C. difficile DNA Amplification - Final 01/13/20 19:05 Stool Stool Lactoferrin - Final Laboratory Results 01/13/20 18:46: WBC 9.0, RBC 5.63 H, Hgb 16.4 H, Hct 47.3 H, MCV 84.0, MCH 29.1, MCHC 34.7, RDW Std Deviation 38.0, RDW Coeff of Marilynn 12.6, Plt Count 443, MPV 8.9, Immature Gran % (Auto) 0.300, Neut % (Auto) 78.9 H, Lymph % (Auto) 16.4 L, [place] % (Auto) 4.0, Eos % (Auto) 0.1, Baso % (Auto) 0.3, Absolute Neuts (auto) 7.1, Absolute Lymphs (auto) 1.47, Nucleated RBC % 0 01/13/20 18:46: Sodium 137, Potassium 3.9, Chloride 101, Carbon Dioxide 22.0, Anion Gap 14, BUN 16, Creatinine 0.72, Estim Creat Clear Calc 115.06, Est GFR (MDRD) Af Amer 130, Est GFR (MDRD) Non-Af 108, BUN/Creatinine Ratio 22.2 H, Glucose 135 H, Calcium 9.9, Phosphorus 3.3, Magnesium 1.9, Total Bilirubin 0.60, AST 20, ALT 23, Alkaline Phosphatase 120 H, Troponin I < 0.015, Total Protein 8.1, Albumin 4.5, Globulin 3.6, Albumin/Globulin Ratio 1.2, Lipase 73 01/13/20 18:46: Acetone Level SMALL H 01/13/20 18:46: Hemoglobin A1c 11.7 H 01/13/20 18:46: Serum , Qual NEGATIVE 01/13/20 19:04: Urine Color Yellow, Urine Clarity Cloudy, Urine pH 5.0, Ur Specific Hawi 1.025, Urine Protein 100 H, Urine Glucose (UA) 1000 H, Urine Ketones 150 H, Urine Occult Blood 10 H, Urine Nitrite Negative, Urine Bilirubin 3 H, Urine Urobilinogen 4 H, Ur Leukocyte Esterase 100 H, Urine RBC 0 SEEN, Urine WBC 10-25 SEEN, Ur Squamous Epith Cells 25-50 SEEN, Urine Bacteria 3+, Hyaline Casts 10-25 SEEN, Urine Mucus 3+ 01/13/20 19:13: POC Glucose 114 H 01/13/20 19:49: Specimen Type LUIS, Sample Site OTHER, VBG pH 7.35, VBG pO2 38, VBG O2 Sat (Calc) 70, VBG O2 Content TNP, VBG Base Excess -3 L, POC Mix VBG pCO2 Pt Tmp 40.6 L, O2 Delivery Device Room Air, Blood Gas Notified Whom ED MD, Blood Gas Notified Time 194801/13/20 21:13: POC Glucose 148 H 01/13/20 22:04: POC Glucose 117 H 01/13/20 22:25: Sodium 140, Potassium 3.4 L, Chloride 108 H, Carbon Dioxide 24.0, Anion Gap 8, BUN 14, Creatinine 0.56, Estim Creat Clear Calc 132.71, Est GFR (MDRD) Af Amer 176, Est GFR (MDRD) Non-Af 145, BUN/Creatinine Ratio 25.1 H, Glucose 120 H, Calcium 8.1 L 01/13/20 23:19: POC Glucose 101 01/14/20 02:19: POC Glucose 239 H 01/14/20 05:20: WBC 6.2, RBC 4.23, Hgb 12.3, Hct 36.3 L, MCV 85.8, MCH 29.1, MCHC 33.9, RDW Std Deviation 39.4, RDW Coeff of Marilynn 12.8, Plt Count 309, MPV 9.0, Immature Gran % (Auto) 0.300, Neut % (Auto) 60.7, Lymph % (Auto) 31.6, [place] % (Auto) 6.5, Eos % (Auto) 0.6, Baso % (Auto) 0.3, Absolute Neuts (auto) 3.8, Absolute Lymphs (auto) 1.96, Nucleated RBC % 0 01/14/20 05:20: Sodium 136, Potassium 3.6, Chloride 105, Carbon Dioxide 22.0, Anion Gap 9, BUN 11, Creatinine 0.48 L, Estim Creat Clear Calc 154.83, Est GFR (MDRD) Af Amer 208, Est GFR (MDRD) Non-Af 172, BUN/Creatinine Ratio 22.9 H, Glucose 257 H, Calcium 7.8 L 01/14/20 08:23: POC Glucose 229 H 01/14/20 12:31: POC Glucose 455 H* Current Medications Albuterol Sulfate (Ventolin Aerosols) 2.5 mg INHALATION Q2H PRN PRN PRN Reason: sob/wheezing Dextrose (D50w Syringe) 0 gm IV X1 PRN; Protocol PRN Reason: HYPOGLYCEMIA Dextrose (D50w Syringe) 0 gm IV X1 PRN; Protocol PRN Reason: Hypoglycemia Glucagon () 1 mg IM .X1 PRN PRN Reason: Hypoglycemia Sodium Chloride () 250 mls @ 15 mls/hr IV .[id number] PRN PRN Reason: Saline Flush Sodium Chloride () 250 mls @ 15 mls/hr IV .[id number] PRN PRN Reason: Additional IVPB Infusion Insulin Glargine (Lantus (Bk)) 75 units SC QHS ADARSH Last Admin: 01/14/20 03:17 Dose: 75 u Documented by: Insulin Human Lispro (Humalog Kwikpen ([facility])) 0 unit SC [facility]; Protocol Last Admin: 01/14/20 12:39 Dose: Not Given Documented by: Melatonin (Melatonin) 3 mg PO QHS PRN PRN PRN Reason: INSOMNIA Morphine Sulfate () 2 mg IV Q3H PRN PRN PRN Reason: Pain Score 6-10/10 Ondansetron HCl (Zofran) 4 mg IV Q8H PRN PRN PRN Reason: NAUSEA/VOMITING Sodium Chloride () 10 - 40 ml IV UD PRN PRN Reason: SALINE FLUSH Last Admin: 01/14/20 03:18 Dose: 10 ml Documented by: Discharge Activity: Return to Normal Activity Weight Bearing Status: Full weight bearing Call your doctor if you observe: Fever of 101 or Higher, Shortness of breath, Dizziness, Fainting spells, Chest pain, Increased palpitations (irregular heartbeat), Uncontrolled pain Home Medications: Medications to take at Discharge Albuterol Sulfate [Ventolin Hfa] 2 puff INHALATION Q4H PRN PRN 08/25/18 Insulin Glargine,Hum.rec.anlog [Basaglar Kwikpen U-100] 75 unit SUBCUT QHS 11/10/19 Insulin Lispro [Insulin Lispro Kwikpen U-100] 0 unit SQ TID 11/10/19 Primary Care Physician: Erika Sen MD [Primary Care Provider] - Please follow up with your Primary Care Physician in: 1 weeks. Disposition: Home Minutes spent on discharge:: 28 Medical Necessity - Tobacco Use Smoking Status: Never smoker Meaningful Use Info Meaningful Use Diagnoses (Choose all that apply): None applicable Inpatient E&M: 12771 Disch Hosp
== END 2020-01-14 13:45 | disposition home or self-care (01) ==
LOC: ED 18:41 → ICU 01-14 07:11
PROVIDERS: Admitting Provider Hospitalist; Emergency Provider Emergency Medicine; PCP Internal Medicine; Referring Provider Hospitalist; Visit Provider Hospitalist
DX: E10.65 Type 1 diabetes mellitus with hyperglycemia (principal); E10.649 Type 1 diabetes mellitus with hypoglycemia without coma; J45.909 Unspecified asthma, uncomplicated; Z79.4 Long term (current) use of insulin; R19.7 Diarrhea, unspecified
CPT/HCPCS: 74176; 80048; 80053; 81001; 82009; 82803; 82962; 83036; 83630; 83690; 83735; 84100; 84484; 84703; 85025; 87177; 87209; 87493; 87506; 93005; 96365; 96366; 96375; 97802; 99285; J7030; A4216; J2405; J7799

== ENCOUNTER 2020-05-16 18:01 | Emergency (ER) | payer MEDICAID, SELFPAY ==
[2020-03-16 10:06] VITALS: BMI 23.6
[2020-05-16 18:02] VITALS: BP 123/80; PULSE 123; RESP 15; TEMP 36.3; O2SAT 100; BMI 23.5
--- NOTE | 2020-05-16 18:23 | ED.DCSUM_ITS ---
History of Present Illness Chief Complaint: Cold Sx Informant: Patient Narrative: Patient is a 20-year-old female with a past medical history of type 1 diabetes, asthma who presents to the emergency for concern that she contracted coronavirus. She states that one of her friends who she was just around 4 days ago tested positive. She has lost her sense of taste and smell. She has developed a mild cough. She has had some body aches. She has been nauseous but no vomiting. She has developed some diarrhea. Patient has been monitoring her blood sugar at home. She states that it has been sporadic and up to the 4-5 100s. He has been using a lot more insulin. She does have a history of DKA multiple times in the past. She denies any significant shortness of breath at this time. No chest pain. Past Medical History - Allergies and Home Meds Allergies/Adverse Reactions: Allergies Penicillins Allergy (Verified 03/16/20 08:29) Unknown Sulfa (Sulfonamide Antibiotics) Allergy (Verified 03/16/20 08:29) Unknown prednisone Adverse Reaction (Verified 03/16/20 08:29) Vomiting bee stings Allergy (Severe, Uncoded 03/16/20 08:29) Anaphylaxis Primary Care Physician: Erika Sen MD [Primary Care Provider] - Prior records reviewed: Yes Past Medical History: - - Diabetes, asthma Surgical History: tonsillectomy, - - control insertion and ear tubes, T+A. Smoking Status: Never smoker - Family History Maternal Family History: Family History (Last Reviewed 03/16/20 @ 10:[address] Pj Chow MD) Grandmother Diabetes Sister Asthma Brother Asthma Family History: Reports: Heart Disease Paternal Family History: Family History (Last Reviewed 03/16/20 @ 10:[address] Pj Chow MD) Grandmother Diabetes Sister Asthma Brother Asthma Family History: Reports: Diabetes Sibling Family History: Family History (Last Reviewed 03/16/20 @ 10:[address] Pj Chow MD) Grandmother Diabetes Sister Asthma Brother Asthma Family History: Reports: Asthma Review of Systems All systems negative except as indicated General: Reports: Chills. Denies: Fever, Sweats Eyes: Denies: Visual changes - bilaterally, Diplopia ENT: Denies: Rhinorrhea, Sore throat Cardiovascular: Denies: Chest pain, Palpitations Respiratory: Reports: Cough. Denies: Dyspnea Gastrointestinal: Reports: Nausea, Diarrhea. Denies: Abdominal pain, Vomiting Genitourinary: Denies: Dysuria, Hematuria, Frequency Musculoskeletal: Reports: Myalgias. Denies: Back pain, Extremity Pain Skin: Denies: Rash, Wounds Neurological: Denies: Headache, Weakness, Numbness Physical Exam Vital Signs/Narrative: Vital Signs Temp Pulse Resp BP Pulse Ox 05/16/20 18:02 97.3 F L 123 H 15 123/80 H 100 Inital Vital Signs reviewed: Yes General: Well nourished, Well developed, No Acute Distress Head: Normocephalic, Atraumatic Eyes: Perrl, EOMI ENT: Moist mucous membranes, No rhinorrhea Neck: Supple, Nontender Cardiovascular: Regular rhythm, No murmurs, Tachycardia Respiratory: No distress, CTA bilaterally, Chest nontender Abdomen: Soft, Nontender, Nondistended, Normal bowel sounds Back: Nontender, Normal Inspection Extremities: Nontender, No edema. Negative for: Calf Tenderness Skin: Normal color, No rash Neurological: Alert, Oriented x3, Normal Strength, Normal Sensation Psychological: Normal affect, Normal Mood Diagnostic/Tx/Re-eval - Medical Decision Making Patient presents to the emergency department for coronavirus test. She has developed symptoms consistent with this. Upon arrival she is tachycardic. She states she has been having difficulty controlling her blood sugars. I did recommend that we do a full work-up instead of just doing a swab but patient is refusing at this time. I discussed the risk of going into DKA. She does know when she is going into it and she is not having any of those symptoms. Patient understands risks associate with not getting full work-up. She just wants to h ave the test done at this time. She is to self isolate until this returns negative. Warning signs and symptoms which to return to the emergency department are reviewed with her including developing any significant shortness of breath or symptoms of DKA. She understands and is agreeable this plan. She is to follow-up with her PCP. All questions answered. ED Disposition - Plan for ED Patient: Disposition: Home or Assisted Living Diagnosis: Viral URI Instructions: ED URI Viral Referrals: Erika Sne MD [Primary Care Provider] - 2 Days
== END 2020-05-16 18:55 | disposition home or self-care (01) ==
LOC: ED 18:37
PROVIDERS: Emergency Provider Emergency Medicine; PCP Internal Medicine
DX: J06.9 Acute upper respiratory infection, unspecified (principal)
CPT/HCPCS: 87635; 99281; U0003

== ENCOUNTER 2020-05-27 12:54 | Inpatient (IN) | payer MEDICAID, SELFPAY ==
[2020-05-27] VITALS (15 sets, daily range): BP systolic 94–140; BP diastolic 49–81; PULSE 108–125; RESP 16–23; TEMP 36.4–36.9; O2SAT 98–100; BMI 23.6; BMI 23.2
[2020-05-27 13:11] LABS: Bedside Glucose 385 mg/dL (70-110)
--- NOTE | 2020-05-27 13:20 | RAD_ITS ---
STUDY: X-RAY CHEST REASON FOR EXAM: Female, 20 years old. nausea/vomiting, SOB, hyperglycemia, -- DKA TECHNIQUE: Single AP portable view of the chest. COMPARISON: 06/12/2019 FINDINGS: The lungs are clear and expanded. There is no demonstrated pleural abnormality. Normal size heart. Normal mediastinum and kaleigh. Normal visualized pulmonary arteries. Normal visualized aortic arch and descending thoracic aorta. Normal visualized thoracic spine. Normal visualized ribs, clavicles, and shoulders. There is no demonstrated abnormality of the visualized soft tissue structures of the upper abdomen. RAD/Chest 1 View (Portable) IMPRESSION: Normal x-ray examination of the chest. Electronically Signed: Randall Esquivel DO at 14:21 EST Tel , Service support ,
--- NOTE | 2020-05-27 13:20 | EKG12_ITS ---
Test Reason : HYPERGLYCEMIA Blood Pressure : / mmHG Vent. Rate : 117 BPM Atrial Rate : 117 BPM P-R Int : 136 ms QRS Dur : 084 ms QT Int : 352 ms P-R-T Axes : 065 073 035 degrees QTc Int : 491 ms Sinus tachycardia Possible Biatrial enlargement Nonspecific T wave abnormality Abnormal ECG Confirmed by BELLE AGOSTO, MAY ([id number]), research editor FRANKIE TRUONG ([id number]) on 05/29/2020 2:20:22 PM Referred By: ESPERANZA Confirmed By:MAY ODONNELL MD
--- NOTE | 2020-05-27 13:21 | ED.VIS.GEN ---
History of Present Illness Chief Complaint: Hyperglycemia Informant: Patient Onset: Today Context: - - Awoke with symptoms this morning Timing: Continuous Quality: Malaise, vomiting Current Severity: Severe Maximum Severity: Severe Worsened by: Nothing Relieved by: Nothing Associated Symptoms: Diffuse abdominal discomfort Narrative: Patient woke up this morning feeling malaised, nauseated, vomiting, periumbilical abdominal pain. Feels like when she has been in DKA in the past, her blood sugar was in the 300s so she used her insulin as usual. It now is around 380 here in the ER. She has had no recent illness, she felt fine last night before she went to bed, she has had no missed doses of insulin, and she recently tested negative for COVID-19. She has a history of asthma, she is feeling a little short of breath, she denies any coughing, fevers, chills, myalgias. 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 Lives: Spouse/ Significant Other Smoking Status: Former smoker - Family History Maternal Family History: Family History (Last Reviewed 03/16/20 @ 10:[address] Pj Chow MD) Grandmother Diabetes Sister Asthma Brother Asthma Family History: Reports: Heart Disease Paternal Family History: Family History (Last Reviewed 03/16/20 @ 10:[address] Pj Chow MD) Grandmother Diabetes Sister Asthma Brother Asthma Family History: Reports: Diabetes Sibling Family History: Family History (Last Reviewed 03/16/20 @ 10:[address] Pj Chow MD) Grandmother Diabetes Sister Asthma Brother Asthma Family History: Reports: Asthma Review of Systems General: Reports: Malaise. Denies: Chills, Fever, Sweats Eyes: Denies: Visual changes - bilaterally, Diplopia ENT: Denies: Rhinorrhea, Sore throat Cardiovascular: Denies: Chest pain, Palpitations Respiratory: Reports: Dyspnea. Denies: Cough, Dyspnea on exertion Gastrointestinal: Reports: Abdominal pain, Nausea, Vomiting. Denies: Diarrhea, Melena, Hematochezia Genitourinary: Denies: Dysuria, Hematuria, Frequency Musculoskeletal: Denies: Myalgias, Back pain, Swelling, Extremity Pain Skin: Denies: Rash, Wounds Neurological: Denies: Headache, Weakness, Numbness Physical Exam Vital Signs/Narrative: Vital Signs Temp Pulse Resp BP Pulse Ox 05/27/20 12:55 97.9 F 125 H 18 130/71 H 99 Inital Vital Signs reviewed: Yes General: Well nourished, Well developed, No Acute Distress Head: Normocephalic, Atraumatic Eyes: Perrl, EOMI ENT: Moist mucous membranes, No rhinorrhea Neck: Supple, Nontender, No lymphadenopathy Cardiovascular: Regular rate, Regular rhythm, No murmurs, Tachycardia Respiratory: No distress, CTA bilaterally, Chest nontender Abdomen: Soft, Nondistended, Normal bowel sounds, Tender - Diffusely, Guarding - Voluntary right upper quadrant. Negative for: Rebound tenderness Back: Nontender, Normal Inspection. Negative for: CVA tenderness Extremities: Nontender, No edema Skin: Normal color, No rash, No Trauma Neurological: Alert, Oriented x3, Cranial nerves II-XII grossly intact, Normal Strength, Normal Sensation Psychological: Normal affect, Normal Mood Diagnostic/Tx/Re-eval Impressions Chest X-Ray 05/27/20 13:20 IMPRESSION: Normal x-ray examination of the chest. Electronically Signed: Randall Esquivel DO at 14:21 EST Tel , Service support , 05/27/20 13:20 Chest 1 View (Portable) [RAD] Stat Laboratory Results 05/27/20 05/27/20 05/27/20 13:04 13:40 13:40 WBC 10.9 RBC 5.55 H Hgb 16.6 H Hct 50.2 H MCV 90.5 MCH 29.9 MCHC 33.1 RDW Std Deviation 42.9 RDW Coeff of Marilynn 13.0 Plt Count 402 MPV 8.9 Immature Gran % (Auto) 1.000 H Neut % (Auto) 85.1 H Lymph % (Auto) 11.2 L [place] % (Auto) 2.0 Eos % (Auto) 0.0 Baso % (Auto) 0.7 Absolute Neuts (auto) 9.2 H Absolute Lymphs (auto) 1.22 Nucleated RBC % 0 Specimen Type VBG pH VBG pO2 VBG HCO3 VBG Total CO2 VBG O2 Sat (Calc) VBG Base Excess POC Mix VBG pCO2 Pt Tmp O2 Delivery Device Sodium Potassium Chloride Carbon Dioxide Anion Gap BUN Creatinine Estim Creat Clear Calc Est GFR (MDRD) Af Amer Est GFR (MDRD) Non-Af BUN/Creatinine Ratio Glucose Calcium Total Bilirubin AST ALT Alkaline Phosphatase Total Protein Albumin Globulin Albumin/Globulin Ratio Lipase Acetone Level MODERATE H POC Glucose 385 H 05/27/20 05/27/20 13:40 13:50 WBC RBC Hgb Hct MCV MCH MCHC RDW Std Deviation RDW Coeff of Marilynn Plt Count MPV Immature Gran % (Auto) Neut % (Auto) Lymph % (Auto) [place] % (Auto) Eos % (Auto) Baso % (Auto) Absolute Neuts (auto) Absolute Lymphs (auto) Nucleated RBC % Specimen Type LUIS VBG pH 7.13 L* VBG pO2 48 H VBG HCO3 9 L VBG Total CO2 10 L VBG O2 Sat (Calc) 71 H VBG Base Excess -20 L POC Mix VBG pCO2 Pt Tmp 26.8 L O2 Delivery Device Room Air Sodium 138 Potassium 4.4 Chloride 109 H Carbon Dioxide 8.0 L* Anion Gap 21 H BUN 13 Creatinine 0.88 Estim Creat Clear Calc 84.01 Est GFR (MDRD) Af Amer 103 Est GFR (MDRD) Non-Af 85 BUN/Creatinine Ratio 14.8 Glucose 342 H Calcium 8.9 Total Bilirubin 0.60 AST 19 ALT 26 Alkaline Phosphatase 122 H Total Protein 8.9 H Albumin 4.5 Globulin 4.4 H Albumin/Globulin Ratio 1.0 Lipase 44 L Acetone Level POC Glucose - Rhythm Strip Rhythm Strip: Sinus Tach Rate: 120 Ectopy: None - EKG Initial EKG Interpretation: No Acute Injury Pattern, Sinus Tachycardia - Medical Decision Making Patient was started on fluids and given Zofran, work-up is consistent with DKA states she was started on insulin drip after we verified that her potassium is not low, and plan will be admission to the ICU. She recently had a negative Covid test so I do not think that will be necessary to repeat. - Critical Care Time Critical care time (excluding procedures): 30-74 minutes, Including time spent:, Discussing w/Patient &/or Family/Printing Supervisor, Discussing w/Consultants, Arranging Admission or Transfer, Performing Direct Patient Care at Bedside ED Disposition - Plan for ED Patient: Disposition: Acute Care Hospital [facility] Diagnosis: DKA (diabetic ketoacidoses) Referrals: Erika Sen MD [Primary Care Provider] -
--- NOTE | 2020-05-27 13:50 | CPS ---
Critical VBG pH 7.13 results given to by this ENROLLMENT ADVISOR.
[2020-05-27] MEDS: Ondansetron 4 MG/2 ML Vial IV ×2 (13:51→23:02)
[2020-05-27] MEDS: 0.9% Normal Saline 1,000 ML 999 ML IV (13:51)
[2020-05-27 13:54] LABS: Absolute Lymphocyte Count 1.22 X10^3/uL (0.83-4.51); Absolute Neutrophil Count 9.2 X10^3/uL (2.0-7.7); Basophil# 0.08 X10^3/uL; Basophil% 0.7 % (0-1); Hematocrit 50.2 % (37-47); Hemoglobin 16.6 g/dL (12.0-15.0); Lymphocyte # 1.22 X10^3/ul (4.0); Lymphocyte % 11.2 % (19-41); Mean Corp Hgb Conc 33.1 g/dL (32-36); Mean Corpuscular Hgb 29.9 pg (27.0-32.0); Mean Corpuscular Volume 90.5 fL (81-99); Mean Platelet Vol. 8.9 fl (6.2-12.0); Monocyte# 0.22 X10^3/uL; NRBC Flagged by Analyzer 0 % (0-5); Neutrophil # 9.23 X10^3/uL (2.7-7.7); Neutrophil % 85.1 % (47-70); Platelet Count 402 K/mm3 (150-450); RBC Distribution Width SD 42.9 fl (35.1-43.9); Red Blood Count 5.55 M/mm3 (4.2-5.4); White Blood Count 10.9 K/mm3 (4.4-11.0)
[2020-05-27 14:01] LABS: Blood Gas Specimen Type VEN; O2 Delivery Device Room Air; VBG BASE EXCESS -20 mmol/L (-1.0-3.5); VBG Bicarbonate 9 mmol/L (22-26); VBG PO2 48 mmHg (25-40); VBG SO2 71 % (50-70); VBG TCO2 10 mmol/L (23-33); VBG pCO2 26.8 mmHg (41-51); VBG pH 7.13 (7.32-7.42)
[2020-05-27 14:25] LABS: AST(SGOT) 19 U/L (15-37); Alanine Aminotransfer ALT/SGPT 26 U/L (13-56); Albumin, Serum 4.5 g/dL (3.2-5.0); Alkaline Phosphatase 122 U/L (45-117); Anion Gap 21 (5-15); BUN 13 mg/dL (7-18); BUN/Creat Ratio 14.8 RATIO (10-20); Calcium,Total 8.9 mg/dL (8.5-10.1); Chloride 109 mmol/L (98-107); Creatinine, Serum 0.88 mg/dL (0.55-1.02); EST Glomerular Filtration Rate 85 mL/min (>60); Est Glom Filt Rate - Afr Amer 103 mL/min (>60); Estimated Creatinine Clearance 84.01 ml/min; Globulin 4.4 g/dL (2.2-4.2); Glucose 342 mg/dL (74-106); Lipase 44 U/L (73-393); Potassium 4.4 mmol/L (3.5-5.1); Protein, Total 8.9 g/dL (6.4-8.2); Sodium Level 138 mmol/L (136-145)
--- NOTE | 2020-05-27 14:31 | NURSING ---
DR ANDRES COVINGTON
--- NOTE | 2020-05-27 14:32 | HP.PCM_ITS ---
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 (3) History of hepatitis A Status: Chronic (4) Asthma Status: Chronic Qualifiers: Asthma severity: mild Asthma persistence: unspecified Asthma complication type: uncomplicated Qualified Code(s): J45.909 - Unspecified asthma, uncomplicated (5) Type I diabetes mellitus Status: Chronic Qualifiers: Diabetes mellitus complication status: with hyperglycemia Qualified Code(s): E10.65 - Type 1 diabetes mellitus with hyperglycemia History of Present Illness Date of Admission: 05/27/20 Chief Complaint: Nausea and vomiting The patient is a 20 year old F lady with past medical history single for diabetes mellitus type 1 presented with intractable nausea vomiting. Patient states she was in her usual state of health until the morning of her admission when she developed significant intractable nausea and vomiting. Her symptoms worsened resulting in patient presented to the emergency department. Work-up in the ED was assisted with DKA. Treatment initiated with aggressive IV fluids systemic insulin and patient admitted to the intensive care unit for further management Past Medical History Past Medical History (Chronic Problems): Chronic Problems (Last Reviewed 03/16/20 @ 10:[address] Pj Chow MD) Cannabis use in remission (Chronic) History of hepatitis A (Chronic) Asthma (Chronic) Type I diabetes mellitus (Chronic) Medical History: Medical History (Last Reviewed 05/27/20 @ 15:[address] David Akhtar MD) Asthma J45.909 Diabetes type 1, controlled E10.9 Dx : age 8 Last exacerbation : DKA : 07/07 Hypoglycemic episode : never ER visit : 07/07 Allergies Penicillins Allergy (Verified 05/27/20 12:58) Unknown Sulfa (Sulfonamide Antibiotics) Allergy (Verified 05/27/20 12:58) Unknown prednisone Adverse Reaction (Verified 05/27/20 12:58) Vomiting bee stings Allergy (Severe, Uncoded 05/27/20 12:58) Anaphylaxis Home Medications: Ambulatory Orders Medication Instructions Recorded Albuterol Sulfate [Ventolin Hfa] 2 puff INHALATION Q4H PRN PRN 08/25/18 flash glucose sensor See Rx Instructions .ROUTE 05/19/20 .MEDSUPPLY #2 ea insulin aspart U-100 100 unit/mL 15 unit SC TID #15 ml 05/19/20 (3 mL) subcutaneous pen insulin glargine 100 unit/mL (3 30 unit SC DAILY #15 ml 05/19/20 mL) subcutaneous pen pen needle, diabetic 32 gauge x See Rx Instructions .ROUTE 05/19/20 .MEDSUPPLY #120 ea Surgical History: Surgical History (Last Reviewed 05/27/20 @ 15:[address] David Akhtar MD) History of placement of ear tubes Z86.69 Surgical History: tonsillectomy, - - control insertion and ear tubes, T+A. Psychiatric History: No pertinent psych hx RESIDENT CARE PROVIDER History: No pertinent RESIDENT CARE PROVIDER history Lives: Spouse/ Significant Other Smoking Status: Former smoker - *Family History Paternal Family History: Family History (Last Reviewed 05/27/20 @ 15:[address] David Akhtar MD) Grandmother Diabetes Sister Asthma Brother Asthma History Items: Diabetes Sibling Family History: Family History (Last Reviewed 05/27/20 @ 15:[address] David Akhtar MD) Grandmother Diabetes Sister Asthma Brother Asthma History Items: Asthma Maternal Family History: Family History (Last Reviewed 05/27/20 @ 15:[address] David Akhtar MD) Grandmother Diabetes Sister Asthma Brother Asthma History Items: Heart Disease Review of Systems Constitutional: Reports: Anorexia, Weakness, Fatigue HEENT: Denies: Head Aches, Sinus Congestion, Sinus Drainage Cardiovascular: Denies: Chest Pain, Orthopnea, Palpitations, Paroxysmal Noc. Dyspnea Respiratory: Denies: Cough, Shortness of breath at rest, Shortness of breath upon exertion, Sputum production Gastrointestinal: Reports: Nausea, Vomiting Genitourinary: Denies: Dysuria, Frequency, Hematuria, Urgency Musculoskeletal: Denies: Joint Pain, Joint Tenderness Psychiatric: Denies: Homicidal Ideations, Suicidal Ideations Hematologic/ Lymphatic: Denies: Easy Bruising, Easy Bleeding VTE Information - Inpt Only VTE Present on Admission: No VTE Mechan Device Prophylaxis: None VTE Pharm Prophylaxis ordered?: No Reason prophylaxis not ordered:: Treatment Not Indicated Patient Problems: Active and Suspected Problems (Last Reviewed 03/16/20 @ 10:[address] Pj Chow MD) DKA (diabetic ketoacidoses) (Acute) Objective: GENERAL: cooperative HEENT: Atraumatic; EYES; Icteric, Normal Conjunctiva NECK; supple, normal thyroid, RESPIRATORY: Diminished to auscultation CARDIOVASCULAR: Regular S1 S2, GI: Right upper quadrant tenderness : No Renal angle tenderness; EXTREMITIES: No edema, no clubbing, MUSCULOSKELETAL: No Joint Tenderness; NEURO: Awake; no lateralizing signs. SKIN: No Rash PSYCH; flat affect - Physical Exam Vitals/I&O's: Vital Signs Temp Pulse Resp BP Pulse Ox 97.9 F 117 H 18 140/81 H 98 05/27/20 12:55 05/27/20 13:59 05/27/20 13:59 05/27/20 13:59 05/27/20 13:59 Oxygen Delivery Method Room Air Weight: 53.07 kg Body Mass Index (BMI) 23.6 Finger Stick Blood Glucose 365 Laboratory Results 05/27/20 13:04: POC Glucose 385 H 05/27/20 13:40: WBC 10.9, RBC 5.55 H, Hgb 16.6 H, Hct 50.2 H, MCV 90.5, MCH 29.9, MCHC 33.1, RDW Std Deviation 42.9, RDW Coeff of Marilynn 13.0, Plt Count 402, MPV 8.9, Immature Gran % (Auto) 1.000 H, Neut % (Auto) 85.1 H, Lymph % (Auto) 11.2 L, [place] % (Auto) 2.0, Eos % (Auto) 0.0, Baso % (Auto) 0.7, Absolute Neuts (auto) 9.2 H, Absolute Lymphs (auto) 1.22, Nucleated RBC % 0 05/27/20 13:40: Acetone Level MODERATE H 05/27/20 13:40: Sodium 138, Potassium 4.4, Chloride 109 H, Carbon Dioxide 8.0 L* , Anion Gap 21 H, BUN 13, Creatinine 0.88, Estim Creat Clear Calc 84.01, Est GFR (MDRD) Af Amer 103, Est GFR (MDRD) Non-Af 85, BUN/Creatinine Ratio 14.8, Glucose 342 H, Calcium 8.9, Total Bilirubin 0.60, AST 19, ALT 26, Alkaline Phosphatase 122 H, Total Protein 8.9 H, Albumin 4.5, Globulin 4.4 H, Albumin/Globulin Ratio 1.0, Lipase 44 L 05/27/20 13:50: Specimen Type LUIS, VBG pH 7.13 L*, VBG pO2 48 H, VBG HCO3 9 L, VBG Total CO2 10 L, VBG O2 Sat (Calc) 71 H, VBG Base Excess -20 L, POC Mix VBG pCO2 Pt Tmp 26.8 L, O2 Delivery Device Room Air Current Medications Dextrose (Dextrose 50%-Water 25 Gm/50 Ml Disp.Syrin) 0 gm IV X1 PRN; Protocol PRN Reason: Hypoglycemia Protocol Insulin Human Lispro 100 unit/ (Sodium Chloride) 100 mls @ 5.307 mls/hr IV .[id number] ADARSH; Protocol Assessment/Plan All Active Problems (Last Reviewed 03/16/20 @ 10:[address] Pj Chow MD) DKA (diabetic ketoacidoses) (Acute) Patient is a 20-year-old lady with history of diabetes mellitus type 1 presented with intractable nausea vomiting assessment was consistent with DKA 1. Diabetic ketoacidosis in a patient with diabetes mellitus type 1 ?Admitted to the intensive care unit managed with aggressive IV fluid resuscitation, systemic insulin, every 4 BMP with correction of electrolyte abnormalities 2. Mild intermittent asthma ?Currently not in exacerbation aerosol treatments as needed 3. DVT prophylaxis -Low risk did encourage early ambulation Inpatient E&M: 14819 Init Hosp L2
--- NOTE | 2020-05-27 14:39 | NURSING ---
ICU KITTOE DKA
--- NOTE | 2020-05-27 15:56 | NURSING ---
CV ICU 204
[2020-05-27 16:16] LABS: Bedside Glucose 256 mg/dL (70-110)
[2020-05-27] MEDS: Dext 5%-0.45% NS 1,000 ML 150 ML IV (18:05)
[2020-05-27 18:56] LABS: Bedside Glucose 184 mg/dL (70-110)
[2020-05-27 18:56] LABS: Bedside Glucose 188 mg/dL (70-110)
[2020-05-27 19:02] LABS: Anion Gap 15 (5-15); BUN 8 mg/dL (7-18); BUN/Creat Ratio 11.8 RATIO (10-20); Calcium,Total 7.7 mg/dL (8.5-10.1); Chloride 117 mmol/L (98-107); Creatinine, Serum 0.68 mg/dL (0.55-1.02); EST Glomerular Filtration Rate 116 mL/min (>60); Est Glom Filt Rate - Afr Amer 140 mL/min (>60); Estimated Creatinine Clearance 106.94 ml/min; Glucose 178 mg/dL (74-106); Potassium 3.9 mmol/L (3.5-5.1); Sodium Level 141 mmol/L (136-145)
[2020-05-27 19:10] LABS: Magnesium 1.7 mg/dL (1.6-2.6)
[2020-05-27 19:36] LABS: Bacteria 0 SEEN /hpf (None Seen); Mucous, Urine 0 SEEN /hpf (<or=2+); Red Blood Cells-Urine 0 SEEN /hpf (0-5); White Blood Cells 0 SEEN /hpf (0-5)
[2020-05-27 19:38] LABS: Glucose, Dipstick 1000 mg/dl (Normal); Leukocyte Esterase-Dipstick Negative /ul (Negative); Nitrite-Dipstick Negative (Negative); Occult Blood-Urine Negative /ul (Negative); Protein-Dipstick 30 mg/dl (Negative); Urine Bilirubin Dipstick Negative (Negative); Urine Clarity Clear (Clear); Urine Urobilinogen Normal (Normal)
[2020-05-27 19:40] LABS: Color, Urine SEE COMMENT BELOW (Yellow)
[2020-05-27 19:41] LABS: Ketone-Dipstick 150 mg/dl (Negative)
[2020-05-27 20:00] LABS: Bedside Glucose 156 mg/dL (70-110)
[2020-05-27 20:11] LABS: Squamous Epithelial Cells - UA 0-5 SEEN /hpf (5-10)
[2020-05-27 21:06] LABS: Bedside Glucose 167 mg/dL (70-110)
[2020-05-27 21:35] LABS: Bedside Glucose 158 mg/dL (70-110)
[2020-05-27 21:54] LABS: Anion Gap 11 (5-15); BUN 7 mg/dL (7-18); BUN/Creat Ratio 10.3 RATIO (10-20); Chloride 116 mmol/L (98-107); Creatinine, Serum 0.68 mg/dL (0.55-1.02); EST Glomerular Filtration Rate 115 mL/min (>60); Est Glom Filt Rate - Afr Amer 140 mL/min (>60); Estimated Creatinine Clearance 106.94 ml/min; Glucose 169 mg/dL (74-106); Potassium 3.3 mmol/L (3.5-5.1); Sodium Level 141 mmol/L (136-145)
[2020-05-27 22:05] LABS: Bedside Glucose 164 mg/dL (70-110)
[2020-05-27] MEDS: 0.9% Saline Lock 10 ML Syringe IV (23:02)
[2020-05-27 23:06] LABS: Bedside Glucose 112 mg/dL (70-110)
[2020-05-28] VITALS (14 sets, daily range): BP systolic 92–131; BP diastolic 45–83; PULSE 85–108; RESP 12–21; TEMP 36.5–37.3; O2SAT 97–100
[2020-05-28] MEDS: Dext 5%-0.45% NS 1,000 ML 150 ML IV (00:52)
[2020-05-28 03:31] LABS: Absolute Lymphocyte Count 1.91 X10^3/uL (0.83-4.51); Absolute Neutrophil Count 4.1 X10^3/uL (2.0-7.7); Basophil# 0.05 X10^3/uL; Basophil% 0.8 % (0-1); Eosinophil# 0.02 X10^3/uL; Eosinophils% 0.3 % (0-5); Hematocrit 39.9 % (37-47); Hemoglobin 13.1 g/dL (12.0-15.0); Lymphocyte # 1.91 X10^3/ul (4.0); Lymphocyte % 29.5 % (19-41); Mean Corp Hgb Conc 32.8 g/dL (32-36); Mean Corpuscular Hgb 29.3 pg (27.0-32.0); Mean Corpuscular Volume 89.3 fL (81-99); Mean Platelet Vol. 8.4 fl (6.2-12.0); Monocyte# 0.34 X10^3/uL; Monocyte% 5.3 % (0-10); NRBC Flagged by Analyzer 0 % (0-5); Neutrophil # 4.11 X10^3/uL (2.7-7.7); Neutrophil % 63.5 % (47-70); Platelet Count 330 K/mm3 (150-450); RBC Distribution Width CV 13.2 % (11.6-14.6); RBC Distribution Width SD 43.2 fl (35.1-43.9); Red Blood Count 4.47 M/mm3 (4.2-5.4); White Blood Count 6.5 K/mm3 (4.4-11.0)
[2020-05-28 04:11] LABS: International Normalized Ratio 1.1; Prothrombin Time (Protime)PT. 13.4 SECONDS (11.7-14.9)
[2020-05-28 04:18] LABS: AST(SGOT) 11 U/L (15-37); Alanine Aminotransfer ALT/SGPT 19 U/L (13-56); Albumin, Serum 3.1 g/dL (3.2-5.0); Alkaline Phosphatase 81 U/L (45-117); Anion Gap 7 (5-15); BUN 8 mg/dL (7-18); BUN/Creat Ratio 14.6 RATIO (10-20); Bilirubin, Direct 0.12 mg/dL (0.00-0.30); Calcium,Total 7.8 mg/dL (8.5-10.1); Chloride 114 mmol/L (98-107); Creatinine, Serum 0.55 mg/dL (0.55-1.02); EST Glomerular Filtration Rate 147 mL/min (>60); Est Glom Filt Rate - Afr Amer 178 mL/min (>60); Estimated Creatinine Clearance 132.21 ml/min; Glucose 177 mg/dL (74-106); Magnesium 1.9 mg/dL (1.6-2.6); Potassium 3.6 mmol/L (3.5-5.1); Protein, Total 6.1 g/dL (6.4-8.2); Sodium Level 137 mmol/L (136-145)
--- NOTE | 2020-05-28 07:13 | PCM.PN.HOSP ---
Patient Problems: Active and Suspected Problems (Last Reviewed 05/27/20 @ 15:[address] David Akhtar MD) DKA (diabetic ketoacidoses) (Acute) Reason for Visit: Diabetic ketoacidosis Subjective: Patient is a 20-year-old lady with history of diabetes mellitus type 1 presented with intractable nausea vomiting assessment was consistent with DKA Objective: GENERAL: cooperative HEENT: Atraumatic; EYES; Icteric, Normal Conjunctiva NECK; supple, normal thyroid, RESPIRATORY: Diminished to auscultation CARDIOVASCULAR: Regular S1 S2, GI: Right upper quadrant tenderness : No Renal angle tenderness; EXTREMITIES: No edema, no clubbing, MUSCULOSKELETAL: No Joint Tenderness; NEURO: Awake; no lateralizing signs. SKIN: No Rash PSYCH; flat affect Vitals/I&O's: Vital Signs Temp Pulse Resp BP Pulse Ox 97.9 F 85 16 92/52 L 98 05/28/20 04:00 05/28/20 06:00 05/28/20 06:00 05/28/20 06:00 05/28/20 06:00 Oxygen Delivery Method Room Air Weight: 52.9 kg Body Mass Index (BMI) 23.2 Finger Stick Blood Glucose 256 Intake and Output for Last 24 Hours 05/26/20 05/27/20 05/28/20 23:59 23:59 23:59 Intake Total 1382.25 / 1382.25 1775 / 1775 Output Total 0 / 0 Balance 1382.25 / 1382.25 1775 / 1775 Laboratory Results 05/27/20 13:04: POC Glucose 385 H 05/27/20 13:40: WBC 10.9, RBC 5.55 H, Hgb 16.6 H, Hct 50.2 H, MCV 90.5, MCH 29.9, MCHC 33.1, RDW Std Deviation 42.9, RDW Coeff of Marilynn 13.0, Plt Count 402, MPV 8.9, Immature Gran % (Auto) 1.000 H, Neut % (Auto) 85.1 H, Lymph % (Auto) 11.2 L, [place] % (Auto) 2.0, Eos % (Auto) 0.0, Baso % (Auto) 0.7, Absolute Neuts (auto) 9.2 H, Absolute Lymphs (auto) 1.22, Nucleated RBC % 0 05/27/20 13:40: Acetone Level MODERATE H 05/27/20 13:40: Sodium 138, Potassium 4.4, Chloride 109 H, Carbon Dioxide 8.0 L*, Anion Gap 21 H, BUN 13, Creatinine 0.88, Estim Creat Clear Calc 84.01, Est GFR (MDRD) Af Amer 103, Est GFR (MDRD) Non-Af 85, BUN/Creatinine Ratio 14.8, Glucose 342 H, Calcium 8.9, Total Bilirubin 0.60, AST 19, ALT 26, Alkaline Phosphatase 122 H, Total Protein 8.9 H, Albumin 4.5, Globulin 4.4 H, Albumin/Globulin Ratio 1.0, Lipase 44 L 05/27/20 13:50: Specimen Type LUIS, VBG pH 7.13 L*, VBG pO2 48 H, VBG HCO3 9 L, VBG Total CO2 10 L, VBG O2 Sat (Calc) 71 H, VBG Base Excess -20 L, POC Mix VBG pCO2 Pt Tmp 26.8 L, O2 Delivery Device Room Air 05/27/20 16:09: POC Glucose 256 H 05/27/20 17:50: POC Glucose 188 H 05/27/20 18:10: Magnesium 1.7 05/27/20 18:10: Acetone Level LARGE H 05/27/20 18:10: Sodium 141, Potassium 3.9, Chloride 117 H, Carbon Dioxide 9.0 L*, Anion Gap 15, BUN 8, Creatinine 0.68, Estim Creat Clear Calc 106.94, Est GFR (MDRD) Af Amer 140, Est GFR (MDRD) Non-Af 116, BUN/Creatinine Ratio 11.8, Glucose 178 H, Calcium 7.7 L 05/27/20 18:53: POC Glucose 184 H 05/27/20 19:30: Urine Color SEE COMMENT BELOW, Urine Clarity Clear, Urine pH 5.0, Ur Specific [place] 1.020, Urine Protein 30 H, Urine Glucose (UA) 1000 H, Urine Ketones 150 H, Urine Occult Blood Negative, Urine Nitrite Negative, Urine Bilirubin Negative, Urine Urobilinogen Normal, Ur Leukocyte Esterase Negative, Urine RBC 0 SEEN, Urine WBC 0 SEEN, Ur Squamous Epith Cells 0-5 SEEN, Urine Bacteria 0 SEEN, Urine Mucus 0 SEEN 05/27/20 19:54: POC Glucose 156 H 05/27/20 21:01: POC Glucose 167 H 05/27/20 21:27: Sodium 141, Potassium 3.3 L, Chloride 116 H, Carbon Dioxide 14.0 L, Anion Gap 11, BUN 7, Creatinine 0.68, Estim Creat Clear Calc 106.94, Est GFR (MDRD) Af Amer 140, Est GFR (MDRD) Non-Af 115, BUN/Creatinine Ratio 10.3, Glucose 169 H, Calcium 8.0 L 05/27/20 21:31: POC Glucose 158 H 05/27/20 22:01: POC Glucose 164 H 05/27/20 22:57: POC Glucose 112 H 05/28/20 03:25: Sodium 137, Potassium 3.6, Chloride 114 H, Carbon Dioxide 16.0 L, Anion Gap 7, BUN 8, Creatinine 0.55, Estim Creat Clear Calc 132.21, Est GFR (MDRD) Af Amer 178, Est GFR (MDRD) Non-Af 147, BUN/Creatinine Ratio 14.6, Glucose 177 H, Calcium 7.8 L, Magnesium 1.9, Total Bilirubin 0.40, Direct Bilirubin 0.12, AST 11 L, ALT 19, Alkaline Phosphatase 81, Total Protein 6.1 L, Albumin 3.1 L, Globulin 3.0 05/28/20 03:25: WBC 6.5, RBC 4.47, Hgb 13.1, Hct 39.9, MCV 89.3, MCH 29.3, MCHC 32.8, RDW Std Deviation 43.2, RDW Coeff of Marilynn 13.2, Plt Count 330, MPV 8.4, Immature Gran % (Auto) 0.600, Neut % (Auto) 63.5, Lymph % (Auto) 29.5, [place] % (Auto) 5.3, Eos % (Auto) 0.3, Baso % (Auto) 0.8, Absolute Neuts (auto) 4.1, Absolute Lymphs (auto) 1.91, Nucleated RBC % 0 05/28/20 03:25: PT 13.4, INR 1.1 Current Medications Acetaminophen (Acetaminophen 325 Mg Tablet) 650 mg PO Q6H PRN PRN PRN Reason: Pain Score 1-10/Temp > 100.7 F Al Hydroxide/Mg Hydroxide (Mag Hydrox/Al Hydrox/Simeth 30 Ml Udc) 30 ml PO Q6H PRN PRN PRN Reason: Gastric Burning Albuterol Sulfate (Albuterol 2.5 Mg/3 Ml Vial.Neb.) 2.5 mg INHALATION Q2H PRN PRN PRN Reason: SOB/Wheezing Dextrose (Dextrose 50%-Water 25 Gm/50 Ml Disp.Syrin) 0 gm IV X1 PRN; Protocol PRN Reason: Hypoglycemia Protocol Guaifenesin (Guaifenesin 10 Ml Udc (200mg/10ml)) 10 ml PO Q4H PRN PRN PRN Reason: COUGH Sodium Chloride () 250 mls @ 15 mls/hr IV .[id number] PRN PRN Reason: Saline Flush Sodium Chloride () 250 mls @ 15 mls/hr IV .[id number] PRN PRN Reason: Additional IVPB Infusion Dextrose/Sodium Chloride () 1,000 mls @ 150 mls/hr IV .[id number] ADARSH Last Infusion: 05/28/20 02:12 Dose: Infused Documented by: Insulin Glargine (Insulin Glargine 100 Units/Ml Pen) 30 units SC DAILY [facility] Last Admin: 05/27/20 22:58 Dose: 30 u Documented by: Insulin Human Lispro (Insulin Lispro 100 Unit/Ml Insuln.Pen) 0 unit SC ACHS [facility]; Protocol Insulin Human Lispro (Insulin Lispro 100 Unit/Ml Insuln.Pen) 15 unit SC 0800,1200,1700 [facility] Melatonin (Melatonin 3 Mg Tablet) 3 mg PO QHS PRN PRN PRN Reason: INSOMNIA Ondansetron HCl (Ondansetron 4 Mg/2 Ml Vial) 4 mg IV Q8H PRN PRN PRN Reason: NAUSEA/VOMITING Last Admin: 05/27/20 23:02 Dose: 4 mg Documented by: Oxycodone HCl (Oxycodone 5 Mg Tablet) 5 mg PO Q4H PRN PRN PRN Reason: Pain Score 4-5 Promethazine HCl (Promethazine 25 Mg/Ml Syringe) 25 mg IM Q6H PRN PRN PRN Reason: Breakthrough Nausea/Vomiting Sodium Chloride (0.9% Saline Lock 10 Ml Syringe) 10 - 40 ml IV UD PRN PRN Reason: SALINE FLUSH Last Admin: 05/27/20 23:02 Dose: 20 ml Documented by: STROKE Vital Signs/Narrative: Vital Signs Temp Pulse Resp BP Pulse Ox 05/28/20 06:00 85 16 92/52 L 98 05/28/20 05:00 85 21 H 104/51 L 97 05/28/20 04:00 97.9 F 95 19 H 95/58 L 98 05/28/20 03:53 98 Medical Necessity - Tobacco Use Smoking Status: Former smoker Assessment/Plan All Active Problems (Last Reviewed 05/27/20 @ 15:[address] David Akhtar MD) DKA (diabetic ketoacidoses) (Acute) Patient is a 20-year-old lady with history of diabetes mellitus type 1 presented with intractable nausea vomiting assessment was consistent with DKA 1. Diabetic ketoacidosis in a patient with diabetes mellitus type 1 ?Admitted to the intensive care unit managed with aggressive IV fluid resuscitation, systemic insulin, every 4 BMP with correction of electrolyte abnormalities ?05/28/2020; DKA resolved patient started on long-acting insulin with scheduled short acting insulin with correction factor sliding scale. [facility] 2. Mild intermittent asthma ?Currently not in exacerbation aerosol treatments as needed 3. DVT prophylaxis -Low risk did encourage early ambulation Inpatient E&M: 22868 Subs Hosp L2
[2020-05-28 08:41] LABS: Bedside Glucose 93 mg/dL (70-110)
[2020-05-28] MEDS: Insulin Lispro 100 UNIT/ML INSULN.PEN 15 UNIT SC ×3 (08:42→17:25)
[2020-05-28 11:37] LABS: Anion Gap 9 (5-15); BUN 8 mg/dL (7-18); BUN/Creat Ratio 10.7 RATIO (10-20); Calcium,Total 8.7 mg/dL (8.5-10.1); Chloride 109 mmol/L (98-107); Creatinine, Serum 0.75 mg/dL (0.55-1.02); EST Glomerular Filtration Rate 103 mL/min (>60); Est Glom Filt Rate - Afr Amer 125 mL/min (>60); Estimated Creatinine Clearance 98.26 ml/min; Glucose 222 mg/dL (74-106); Potassium 3.2 mmol/L (3.5-5.1); Sodium Level 137 mmol/L (136-145)
[2020-05-28] MEDS: Insulin Lispro 100 UNIT/ML INSULN.PEN SC ×3 (12:28→21:20)
[2020-05-28] MEDS: 0.9% Saline Lock 10 ML Syringe IV ×2 (12:32→17:25)
[2020-05-28 12:51] LABS: Bedside Glucose 215 mg/dL (70-110)
[2020-05-28 15:54] LABS: Hematocrit 38.7 % (37-47); Hemoglobin 13.4 g/dL (12.0-15.0); Mean Corp Hgb Conc 34.6 g/dL (32-36); Mean Corpuscular Hgb 29.6 pg (27.0-32.0); Mean Corpuscular Volume 85.4 fL (81-99); Mean Platelet Vol. 8.4 fl (6.2-12.0); Platelet Count 352 K/mm3 (150-450); RBC Distribution Width SD 40.5 fl (35.1-43.9); Red Blood Count 4.53 M/mm3 (4.2-5.4); White Blood Count 7.1 K/mm3 (4.4-11.0)
[2020-05-28 15:59] LABS: Scan Indicated on CBC? Y/N NO
[2020-05-28 16:50] LABS: Bedside Glucose 262 mg/dL (70-110)
[2020-05-28 21:01] LABS: Bedside Glucose 250 mg/dL (70-110)
[2020-05-29 00:09] VITALS: BP 122/81; PULSE 87; RESP 16; TEMP 36.8; O2SAT 100
[2020-05-29 05:23] VITALS: BP 108/66; PULSE 85; RESP 16; TEMP 36.6; O2SAT 100
[2020-05-29 05:43] LABS: Anion Gap 7 (5-15); BUN 8 mg/dL (7-18); BUN/Creat Ratio 15.7 RATIO (10-20); Calcium,Total 7.9 mg/dL (8.5-10.1); Chloride 111 mmol/L (98-107); Creatinine, Serum 0.51 mg/dL (0.55-1.02); EST Glomerular Filtration Rate 160 mL/min (>60); Est Glom Filt Rate - Afr Amer 193 mL/min (>60); Glucose 318 mg/dL (74-106); Potassium 3.9 mmol/L (3.5-5.1); Sodium Level 141 mmol/L (136-145)
[2020-05-29 07:51] LABS: Bedside Glucose 281 mg/dL (70-110)
[2020-05-29] MEDS: Insulin Lispro 100 UNIT/ML INSULN.PEN SC ×2 (07:54→12:16)
[2020-05-29] MEDS: Insulin Lispro 100 UNIT/ML INSULN.PEN 15 UNIT SC ×2 (07:55→12:17)
[2020-05-29 09:20] VITALS: BP 118/65; PULSE 85; RESP 16; TEMP 36.4; O2SAT 97
--- NOTE | 2020-05-29 11:15 | CASEMGMT ---
RN CM Face to Face with patient for initial transition planning/care coordination assessment. RN CM introduced self and role at [facility]. Patient lying in bed, alert and oriented. Patient willing to participate in assessment and is able to answer all questions appropriately. Care providers, pharmacy, and demographics verified. Patient wishes to discharge home, denies need for home health at this time. Patient states she has no further needs or concerns at this time. CM to follow for discharge planning needs that may arise. PCP: [facility] Specialists: King visual effects artist Preferred Pharmacy: [facility] Insurance: [employer] Prescription Benefit: yes Living Will/HPOA: no but would like to complete. YOLANDA Aguirre updated LNOK: father, david Living Arrangements: Patient lives with her fiance in a first floor apartment with no steps to enter. Patient states she is independent at home. Transportation: self, fiance DME/HHC: patient states she has glucometer, testing supplies, and insulin at home. Patient denies additional needs at this time. Disposition Plan: Patient to discharge home with family support and follow-up plans in place. Jessica MEAD, RN, CM
[2020-05-29 11:41] LABS: Bedside Glucose 408 mg/dL (70-110)
--- NOTE | 2020-05-29 13:16 | CASEMGMT ---
Social Work Note SW received referral for advanced directives. SW in to speak with pt. SW introduced self and role at [facility]. Pt is alert and orientated x3. Pt completed HCPOA document. Pt denied wanting to complete LW, receptive to taking LW documents. SW provided pt with LW documents and social service rac card. SW made copy of HCPOA, placed on pt's chart, provided pt with original document. Pt thanked this worker, denied additional needs or concerns at this time. Jessica Aguirre TITLE ASSISTANT, TOOL PROGRAMMER
--- NOTE | 2020-05-29 13:21 | DCINST_ITS ---
- Discharge Diagnoses Current Active Problems: Current Active and Chronic Problems (Last Reviewed 05/27/20 @ 15:[address] 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) History of hepatitis A (Chronic) Asthma (Chronic) Type I diabetes mellitus (Chronic) You will use the following diet at home:: Calorie/Carbohydrate Controlled (specify 1200, 1400, etc) Your food should be the consistency of: Regular Your liquids should be the consistency of: Regular/Thin Discharge Activity: Return to Normal Activity, No Restrictions, May Drive Allergies/Adverse Reactions: Allergies Penicillins Allergy (Verified 05/27/20 12:58) Unknown Sulfa (Sulfonamide Antibiotics) Allergy (Verified 05/27/20 12:58) Unknown prednisone Adverse Reaction (Verified 05/27/20 12:58) Vomiting bee stings Allergy (Severe, Uncoded 05/27/20 12:58) Anaphylaxis Medications to take at Discharge Albuterol Sulfate [Ventolin Hfa] 2 puff INHALATION Q4H PRN PRN 08/25/18 flash glucose sensor See Rx Instructions .ROUTE .MEDSUPPLY #2 ea 05/19/20 insulin aspart U-100 100 unit/mL (3 mL) subcutaneous pen 15 unit SC TID #15 ml 05/19/20 insulin glargine 100 unit/mL (3 mL) subcutaneous pen 30 unit SC DAILY #15 ml 05/19/20 pen needle, diabetic 32 gauge x See Rx Instructions .ROUTE .MEDSUPPLY #120 ea 05/19/20 Primary Care Physician: Erika Sen MD [Primary Care Provider] - Please follow up with your Primary Care Physician in: 1-2 weeks Test Results: Test results from this visit will be discussed in further detail at your follow- up appointment, if applicable. Please Follow Up With: Pj Chow MD When: as scheduled
--- NOTE | 2020-05-29 13:22 | DS.PCM_ITS ---
Discharge Date and Diagnosis - Problem List Patient Problems: Active and Suspected Problems (Last Reviewed 05/27/20 @ 15:[address] David Akhtar MD) DKA (diabetic ketoacidoses) (Acute) Date of Admission: 05/27/20 - Primary Discharge Diagnosis Acute Problems: Active Problems (Last Reviewed 05/27/20 @ 15:[address] David Akhtar MD) DKA (diabetic ketoacidoses) (Acute) - Secondary Discharge Diagnosis Chronic Problems: Chronic Problems (Last Reviewed 05/27/20 @ 15:[address] 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 She stated that she was in her usual state of health until the morning of her admission when she developed significant intractable nausea and vomiting. Work-up in the ED was consistent with DKA. She was treated with aggressive IV fluids, an insulin ggt and she was admitted to the intensive care unit for further management. Her DKA resolved on 05/28 but she was kept for hydration and insulin adjustments. Her Lantus dose increased to 40 u from 30 and her log increased to 18 u with meals from 15 u. She has a f/u appt made with endocrinology and is feeling well. Patient Problems: Active and Suspected Problems (Last Reviewed 05/27/20 @ 15:[address] David Akhtar MD) DKA (diabetic ketoacidoses) (Acute) - Physical Exam Vitals/I&O's: Vital Signs Temp Pulse Resp BP Pulse Ox 97.5 F L 85 16 118/65 97 05/29/20 09:20 05/29/20 09:20 05/29/20 09:20 05/29/20 09:20 05/29/20 09:20 Oxygen Delivery Method Room Air Weight: 52.9 kg Body Mass Index (BMI) 23.2 Finger Stick Blood Glucose 256 Intake and Output for Last 24 Hours 05/27/20 05/28/20 05/29/20 23:59 23:59 23:59 Intake Total 1382.25 / 1382.25 4005 / 6005 4240.0 / 4240.0 Output Total 0 / 0 1350 / 3050 2900 / 2900 Balance 1382.25 / 1382.25 2655 / 2955 1340.0 / 1340.0 General: Alert, Oriented x3, Cooperative, No apparent distress, Well developed, Well nourished, - - young WF sitting up in bed, appears well HEENT: Atraumatic, Normocephalic Oral: Moist Mucosa Neck: Supple, Trachea Midline Lungs: Clear to auscultation, Normal air movement, No rhonchi, No wheeze, No rales Cardiovascular: Regular rate, Regular Rhythm, Normal S1, Normal S2, No murmurs, No Ectopic Activity, No rub noted, No Gallop Abdomen: Bowel Sounds Present, Soft, Non Tender, Non-Distended Extremities: No clubbing, No cyanosis, No edema, Capillary Refill Less than 3 Seconds, Peripheral Pulses Normal Skin: No rashes, No breakdown Neurological: Cranial nerves II-XII grossly intact, Neuro grossly intact Psych/Mental Status: Normal Affect, Appropriate Laboratory Results 05/28/20 15:41: WBC 7.1, RBC 4.53, Hgb 13.4, Hct 38.7, MCV 85.4, MCH 29.6, MCHC 34.6 D, RDW Std Deviation 40.5, RDW Coeff of Marilynn 13.0, Plt Count 352, MPV 8.4 05/28/20 16:35: POC Glucose 262 H 05/28/20 20:55: POC Glucose 250 H 05/29/20 05:12: Sodium 141, Potassium 3.9, Chloride 111 H, Carbon Dioxide 23.0, Anion Gap 7, BUN 8, Creatinine 0.51 L, Estim Creat Clear Calc 144.50, Est GFR (MDRD) Af Amer 193, Est GFR (MDRD) Non-Af 160, BUN/Creatinine Ratio 15.7, Glucose 318 H, Calcium 7.9 L 05/29/20 07:47: POC Glucose 281 H 05/29/20 11:29: POC Glucose 408 H Current Medications Acetaminophen (Acetaminophen 325 Mg Tablet) 650 mg PO Q6H PRN PRN PRN Reason: Pain Score 1-10/Temp > 100.7 F Al Hydroxide/Mg Hydroxide (Mag Hydrox/Al Hydrox/Simeth 30 Ml Udc) 30 ml PO Q6H PRN PRN PRN Reason: Gastric Burning Albuterol Sulfate (Albuterol 2.5 Mg/3 Ml Vial.Neb.) 2.5 mg INHALATION Q2H PRN PRN PRN Reason: SOB/Wheezing Dextrose (Dextrose 50%-Water 25 Gm/50 Ml Disp.Syrin) 0 gm IV X1 PRN; Protocol PRN Reason: Hypoglycemia Protocol Guaifenesin (Guaifenesin 10 Ml Udc (200mg/10ml)) 10 ml PO Q4H PRN PRN PRN Reason: COUGH Sodium Chloride () 250 mls @ 15 mls/hr IV .[id number] PRN PRN Reason: Saline Flush Sodium Chloride () 250 mls @ 15 mls/hr IV .[id number] PRN PRN Reason: Additional IVPB Infusion Potassium Chloride/Sodium Chloride (Kcl 20meq In 0.45% Ns 1000ml) 1,000 mls @ 150 mls/hr IV .[id number] [facility] Last Infusion: 05/29/20 11:30 Dose: Infused Documented by: Insulin Glargine (Insulin Glargine 100 Units/Ml Pen) 30 units SC DAILY@2200 [facility] Last Admin: 05/28/20 21:20 Dose: 30 u Documented by: Insulin Human Lispro (Insulin Lispro 100 Unit/Ml Insuln.Pen) 0 unit SC ACHS [facility]; Protocol Last Admin: 05/29/20 12:16 Dose: 7 units Documented by: Insulin Human Lispro (Insulin Lispro 100 Unit/Ml Insuln.Pen) 15 unit SC 0800,1200,1700 [facility] Last Admin: 05/29/20 12:17 Dose: 15 units Documented by: Melatonin (Melatonin 3 Mg Tablet) 3 mg PO QHS PRN PRN PRN Reason: INSOMNIA Ondansetron HCl (Ondansetron 4 Mg/2 Ml Vial) 4 mg IV Q8H PRN PRN PRN Reason: NAUSEA/VOMITING Last Admin: 05/27/20 23:02 Dose: 4 mg Documented by: Oxycodone HCl (Oxycodone 5 Mg Tablet) 5 mg PO Q4H PRN PRN PRN Reason: Pain Score 4-5 Potassium Chloride (Potassium Ch[facility] 20 Meq Tablet) [facility] Admin: 05/29/20 07:59 Dose: 20 meq Documented by: Promethazine HCl (Promethazine 25 Mg/Ml Syringe) 25 mg IM Q6H PRN PRN PRN Reason: Breakthrough Nausea/Vomiting Sodium Chloride (0.9% Saline Lock 10 Ml Syringe) 10 - 40 ml IV UD PRN PRN Reason: SALINE FLUSH Last Admin: 05/28/20 17:25 Dose: 10 ml Documented by: Discharge Activity: Return to Normal Activity, No Restrictions, May Drive Home Medications: Medications to take at Discharge Albuterol Sulfate [Ventolin Hfa] 2 puff INHALATION Q4H PRN PRN 08/25/18 flash glucose sensor See Rx Instructions .ROUTE .MEDSUPPLY #2 ea 05/19/20 insulin aspart U-100 100 unit/mL (3 mL) subcutaneous pen 15 unit SC TID #15 ml 05/19/20 insulin glargine 100 unit/mL (3 mL) subcutaneous pen 30 unit SC DAILY #15 ml 05/19/20 pen needle, diabetic 32 gauge x 5/32 See Rx Instructions .ROUTE .MEDSUPPLY #120 ea 05/19/20 Primary Care Physician: Erika Sen MD [Primary Care Provider] - Please follow up with your Primary Care Physician in: 1-2 weeks Please Follow Up With: Pj Chow MD When: as scheduled Medical Necessity - Tobacco Use Smoking Status: Former smoker Meaningful Use Info Meaningful Use Diagnoses (Choose all that apply): None applicable Inpatient E&M: 88709 Disch Hosp
[2020-05-29 13:32] VITALS: BP 134/78; PULSE 97; RESP 18; TEMP 36.7; O2SAT 99
--- NOTE | 2020-05-30 14:47 | CASEMGMT ---
SARA NICOLE Discharge Follow-up Phone Call: COLLETTE: Obinna Strata: 3 Call Date: 05/30/20 Discharge Date: 05/29/20 Time of Call: 1447 Duration: 3 min Admitting Diagnosis: DKA SARA NICOLE completed follow-up phone call after recent hospitalization. Patient states she is doing well just a little sore. Patient had no questions regarding discharge instructions. Patient encouraged to schedule follow-up appt with PCP. Patient states she has appt scheduled with sales and service agent. Patient had no further questions or concerns at this time.
== END 2020-05-29 13:39 | disposition home or self-care (01) | DRG 420 ==
LOC: ED 14:29 → ICU 16:01 → MS3 05-28 09:28
PROVIDERS: Admitting Provider Internal Medicine; Emergency Provider Emergency Medicine; PCP Internal Medicine; Visit Provider Internal Medicine
DX: E10.10 Type 1 diabetes mellitus with ketoacidosis without coma (principal); Z86.19 Personal history of other infectious and parasitic diseases; Z87.891 Personal history of nicotine dependence; J45.20 Mild intermittent asthma, uncomplicated
CPT/HCPCS: 36415; 71045; 80048; 80053; 80076; 81001; 82009; 82803; 82962; 83690; 83735; 85025; 85027; 85610; 93005; 99285; J7030; A4216; J2405; J7799

== ENCOUNTER 2021-03-21 03:21 | Observation (INO) | payer MEDICAID, SELFPAY ==
[2021-03-21] VITALS (22 sets, daily range): BP systolic 92–135; BP diastolic 59–91; PULSE 90–140; RESP 14–24; TEMP 36.5–37.7; O2SAT 97–100; BMI 23.9; BMI 16.5
--- NOTE | 2021-03-21 03:29 | CT_ITS ---
STUDY: CT ABDOMEN AND PELVIS WITH CONTRAST REASON FOR EXAM: Female, 20 years old. appendicitis RADIATION DOSAGE (If Supplied By Facility): CTDIvol = ( 10.51 ) mGy, DLP = ( 384.51 ) mGycm TECHNIQUE: Transaxial 3.75 mm images were obtained from the dome of the diaphragm to the symphysis pubis without oral contrast. IV 75mL Isovue-370 was administered. Sagittal and coronal images were reconstructed. Individualized dose optimization techniques were used for this CT. COMPARISON: CT abdomen pelvis 01/13/2020. 02/15/2019. FINDINGS: The visualized lung bases are unremarkable. The visualized portions of the heart are within normal limits. Normal liver. Normal gallbladder and extrahepatic biliary system. Normal spleen. Normal pancreas. Normal bilateral adrenal glands. Normal right kidney. Normal left kidney. Normal visualized stomach. Normal small intestine. There is moderate amount of fecal material. There is no obstruction. Normal colon. The appendix is visualized and appears normal. Image 53 series 601. Multiple small stable mesenteric lymph nodes along the small bowel root. Normal abdominal aorta. Normal inferior vena cava. Normal retroperitoneum. Normal urinary bladder. Uterus is to the left upper pelvic midline. Right ovarian cyst 2.2 x 1.7 x 2.8 cm ( AP x width x height ).. Normal left ovary. Normal abdominal wall. Normal osseous structures. CT/Abdomen/Pelvis W IV Cont ONLY IMPRESSION: There is no appendicitis, colitis, ascites, hydronephrosis, abscess, collection, perforation or obstruction. Right ovarian cyst. Mesenteric lymph nodes as above appear stable mild adenitis possible. Moderate amount of retained fecal material. Electronically Signed: Willa Vila MD at 5:30 EDT , Service support ,
--- NOTE | 2021-03-21 03:31 | EDS_ITS ---
HPI HPI - GI History of Present Illness Chief Complaint: Abd Pain Narrative Narrative: Patient presenting for evaluation secondary to abdominal pain. Patient has an underlying history of type 1 diabetes. Patient states that over the course of the last 2 or so days she has been dealing with lower abdominal pain. She does localize it in her right lower quadrant. States it is a continuous sharp pain, no real exacerbating relieving factors. It has been associate with some nausea and vomiting. Patient is having difficulty with keeping down fluids. Denies its been associated with any sort of diarrhea. She does have some mild pain on urination as well as some mild vaginal bleeding. Patient has the control implant, does not have regular menses. Patient denies that she has any history of abdominal surgeries in the past. [facility] systems otherwise [facility] Medical History (Updated 03/21/21 @ 05:[address] Emery Rowe MD) Asthma Diabetes type 1, controlled Home Medications albuterol sulfate [Ventolin HFA] 2 puff INHALATION Q4H PRN PRN 08/25/18 [History Last Taken 05/12/19] flash glucose sensor #2 ea 05/19/20 [Rx Last Taken Unknown] pen needle, diabetic 32 gauge x #120 ea 05/19/20 [Rx Last Taken Unknown] insulin aspart U-100 18 unit SC TID #15 ml 05/29/20 [Rx Last Taken Unknown] insulin glargine 40 unit SC DAILY #15 ml 05/29/20 [Rx Last Taken Unknown] Allergy/AdvReac Type Severity Reaction Status Date / Time Penicillins Allergy Unknown Verified 03/21/21 03:22 Sulfa (Sulfonamide Allergy Unknown Verified 03/21/21 03:22 Antibiotics) prednisone AdvReac Vomiting Verified 03/21/21 03:22 bee stings Allergy Severe Anaphylaxis Uncoded 03/21/21 03:22 Family History Grandmother Diabetes Sister Asthma Brother Asthma Surgical History History of placement of ear tubes Social History Smoking Status: Never smoker second hand exposure: No alcohol intake: never substance use type: does not use ROS ROS ED Constitutional Constitutional ED: Denies chills or fever(s) ENT ENT ED: Denies sore throat Cardiovascular Cardiovascular: Denies chest pain Respiratory/Chest Respiratory/Chest: Denies cough or dyspnea Gastrointestinal Gastrointestinal: Reports abdominal pain, nausea and vomiting Genitourinary Genitourinary ED: Reports dysuria and other Details: Vaginal bleeding Musculoskeletal Musculoskeletal: Denies myalgias Integumentary Denies rash Neurologic Neurologic: Denies paresthesias or weakness Psychiatric Psychiatric: Denies depression Endocrine Endocrinology: Denies polyuria Hematologic/Lymphatic Hematologic/Lymphatic: Denies easy bleeding or easy bruising Allergic/Immunologic Allergic/Immunologic ED: Denies urticaria EXAM Physical Exam Const Vital Signs: 03/21/21 03:22 03/21/21 03:23 Temperature 97.7 F L 97.7 F L Temperature Source Temporal Temporal Pulse Rate 140 H 140 H Respiratory Rate 18 18 Blood Pressure 133/91 H 133/91 H Blood Pressure Mean 105 105 Pulse Ox 98 99 Oxygen Delivery Method Room Air Room Air Positive well nourished and well developed Constitutional Narrative: Age-appropriate female not acutely distressed General Appearance ED: well developed and NAD HEENT Reports dry mucous membranes normocephalic and atraumatic Mouth ED: Yes dry mucous membranes Mouth: dry mucous membranes Eyes EOMs intact bilaterally General Eye ED: Negative for pale conjunctiva or scleral icterus Neck no lymphadenopathy and supple Resp normal respiratory effort and clear to auscultation bilaterally Cardio regular rhythm, no murmurs and peripheral pulses 2+ throughout Cardio Narrative: 2+ radial pulses bilaterally symmetric Rate: tachycardic GI non-distended and no masses GI Narrative: Tenderness is noted in the right lower quadrant with some guarding on deep palpation. No evidence of diffuse rigidity. No rebound tenderness. Negative obturator and psoas sign. Palpation: soft Back/Spine no CVA tenderness Extremity full ROM General Extremety ED: Negative for edema General Extremity: Negative for edema Neuro moves all extremities and no sensory deficits noted Sensorium / Orientation: alert, oriented to person, oriented to place and oriented to time Motor Exam: strength 5/5 throughout Psych mental status grossly normal Skin Rashes: no rashes MDM MDM MDM Narrative Medical decision making narrative: Patient presented secondary to abdominal pain. She did have reproducible abdominal pain, was also found to be profoundly tachycardic. She is a type I diabetic I was concerned for the possibility of DKA. IV was tablets patient was given 2 L normal saline for hydration work-up was obtained. CBC shows some hemoconcentration with a hemoglobin at 17.4 no significant leukocytosis. Chemistry shows the patient to have a bicarbonate at 13 and anion gap of 18 with a blood sugar at 218. Patient's potassium was 3.7. Liver panel shows modest elevation of alkaline phosphatase at 142. Patient had moderate ketones. CT abdomen and pelvis was performed on the patient which was found to be negative except for some mesenteric adenitis and an ovarian cyst no evidence of acute inflammatory process. Patient does not seem to have a presentation that her ovarian cyst would be causing a torsion, I do not think a pelvic ultrasound is indicated. She is in diabetic ketoacidosis at this point. Patient was started on an insulin drip, as her blood sugar was only in 200s she was concomitantly started on D5 half-normal with 20 of potassium. Patient requires admission at this point for correction of her ketosis. Patient will be discussed with the hospitalist. Lab Data Labs: Laboratory Results - last 24 hr 03/21/21 03/21/21 03/21/21 03:30 03:30 03:30 WBC 8.8 RBC 5.86 H Hgb 17.4 H Hct 51.2 H MCV 87.4 MCH 29.7 MCHC 34.0 RDW Std Deviation 38.5 RDW Coeff of Marilynn 12.1 Plt Count 519 H MPV 8.3 Immature Gran % (Auto) 0.900 Neut % (Auto) 76.0 H Lymph % (Auto) 18.2 L [place] % (Auto) 4.2 Eos % (Auto) 0.1 Baso % (Auto) 0.6 Absolute Neuts (auto) 6.7 Absolute Lymphs (auto) 1.61 Nucleated RBC % 0 Sodium 134 L Potassium 3.7 Chloride 103 Carbon Dioxide 13.0 L Anion Gap 18 H BUN 11 Creatinine 0.88 Estim Creat Clear Calc 85.17 Est GFR (MDRD) Af Amer 102 Est GFR (MDRD) Non-Af 84 BUN/Creatinine Ratio 12.4 Glucose 218 H Calcium 9.3 Total Bilirubin 0.70 AST 14 L ALT 24 Alkaline Phosphatase 142 H Total Protein 8.6 H Albumin 4.5 Globulin 4.1 Albumin/Globulin Ratio 1.1 Serum , Qual Acetone Level MODERATE H POC Glucose 03/21/21 03/21/21 03/21/21 03:30 05:04 05:08 WBC RBC Hgb Hct MCV MCH MCHC RDW Std Deviation RDW Coeff of Marilynn Plt Count MPV Immature Gran % (Auto) Neut % (Auto) Lymph % (Auto) [place] % (Auto) Eos % (Auto) Baso % (Auto) Absolute Neuts (auto) Absolute Lymphs (auto) Nucleated RBC % Sodium 133 L Potassium 3.5 Chloride 103 Carbon Dioxide 12.0 L Anion Gap 18 H BUN 11 Creatinine 0.76 Estim Creat Clear Calc 98.61 Est GFR (MDRD) Af Amer 122 Est GFR (MDRD) Non-Af 101 BUN/Creatinine Ratio 14.6 Glucose 236 H Calcium 8.7 Total Bilirubin AST ALT Alkaline Phosphatase Total Protein Albumin Globulin Albumin/Globulin Ratio Serum , Qual NEGATIVE Acetone Level POC Glucose 278 H Radiography Diagnostic Testing: Radiology Impression Abdomen/Pelvis CT 03/21/21 03:29 IMPRESSION: There is no appendicitis, colitis, ascites, hydronephrosis, abscess, collection, perforation or obstruction. Right ovarian cyst. Mesenteric lymph nodes as above appear stable mild adenitis possible. Moderate amount of retained fecal material. Electronically Signed: Willa Vila MD at 5:30 EDT , Service support , Critical Care Time Critical care time (excluding procedures): 30-74 minutes (47), Discussing w/Patient &/or Family/Finished Carpet Inspector, Discussing w/Consultants, Arranging Admission or Transfer and Performing Direct Patient Care at Bedside Discharge Plan Triage Chief Complaint: Abd Pain Other Complaint: Nausea/Vomiting ED Provider: Emery Rowe Dx/Rx/DC Orders Clinical Impression: DKA (diabetic ketoacidoses) Prescriptions: No Action (DME) FreeStyle Daniela 14 Day Sensor Kit See Rx Instructions .ROUTE .MEDSUPPLY Qty: 2 RF: 8 (DME) pen needle, diabetic [BD Ultra-Fine Opal Pen Needle] 32 gauge x 5/32 needle See Rx Instructions .ROUTE .MEDSUPPLY Qty: 120 RF: 5 albuterol sulfate [Ventolin HFA] 18 GM HFA aerosol inhaler 2 puff inhalation Q4H PRN PRN (Reason: Sob &/Or Wheezing) RF: 0 insulin aspart U-100 100 unit/mL (3 mL) insulin pen 18 unit SC TID Qty: 15 RF: 5 insulin glargine 100 unit/mL (3 mL) insulin pen 40 unit SC DAILY Qty: 15 RF: 3 Primary Care Provider: Erika Sen Referrals: Erika Sen MD [Primary Care Provider] - Disposition Disposition: Acute Care Hospital [facility]
[2021-03-21] MEDS: Morphine 4 MG/ML Syringe IV (03:37)
[2021-03-21] MEDS: Ondansetron 4 MG/2 ML Vial IV (03:38)
[2021-03-21 03:56] LABS: Absolute Lymphocyte Count 1.61 X10^3/uL (0.83-4.51); Absolute Neutrophil Count 6.7 X10^3/uL (2.0-7.7); Basophil# 0.05 X10^3/uL; Basophil% 0.6 % (0-1); Eosinophil# 0.01 X10^3/uL; Eosinophils% 0.1 % (0-5); Hematocrit 51.2 % (37-47); Hemoglobin 17.4 g/dL (12.0-15.0); Lymphocyte # 1.61 X10^3/ul (0.83-4.51); Lymphocyte % 18.2 % (19-41); Mean Corpuscular Hgb 29.7 pg (27.0-32.0); Mean Corpuscular Volume 87.4 fL (81-99); Mean Platelet Vol. 8.3 fl (6.2-12.0); Monocyte# 0.37 X10^3/uL; Monocyte% 4.2 % (0-10); NRBC Flagged by Analyzer 0 % (0-5); Neutrophil # 6.71 X10^3/uL (2.7-7.7); Platelet Count 519 K/mm3 (150-450); RBC Distribution Width CV 12.1 % (11.6-14.6); RBC Distribution Width SD 38.5 fl (35.1-43.9); Red Blood Count 5.86 M/mm3 (4.2-5.4); White Blood Count 8.8 K/mm3 (4.4-11.0)
[2021-03-21 04:16] LABS: ALB/GLOB Ratio 1.1 RATIO (0.9-2.4); AST(SGOT) 14 U/L (15-37); Alanine Aminotransfer ALT/SGPT 24 U/L (13-56); Albumin, Serum 4.5 g/dL (3.2-5.0); Alkaline Phosphatase 142 U/L (45-117); Anion Gap 18 (5-15); BUN 11 mg/dL (7-18); BUN/Creat Ratio 12.4 RATIO (10-20); Calcium,Total 9.3 mg/dL (8.5-10.1); Chloride 103 mmol/L (98-107); Creatinine, Serum 0.88 mg/dL (0.55-1.02); EST Glomerular Filtration Rate 84 mL/min (>60); Est Glom Filt Rate - Afr Amer 102 mL/min (>60); Estimated Creatinine Clearance 85.17 ml/min; Globulin 4.1 g/dL (2.2-4.2); Glucose 218 mg/dL (74-106); Potassium 3.7 mmol/L (3.5-5.1); Protein, Total 8.6 g/dL (6.4-8.2); Sodium Level 134 mmol/L (136-145)
[2021-03-21 04:17] LABS: Internal QC Validated? YES +Cl - CLEAR BKGD; Pregnancy, Serum, hCG Quali. NEGATIVE Negative
[2021-03-21 05:16] LABS: Bedside Glucose 278 mg/dL (70-110)
[2021-03-21 05:30] LABS: Anion Gap 18 (5-15); BUN 11 mg/dL (7-18); BUN/Creat Ratio 14.6 RATIO (10-20); Calcium,Total 8.7 mg/dL (8.5-10.1); Chloride 103 mmol/L (98-107); Creatinine, Serum 0.76 mg/dL (0.55-1.02); EST Glomerular Filtration Rate 101 mL/min (>60); Est Glom Filt Rate - Afr Amer 122 mL/min (>60); Estimated Creatinine Clearance 98.61 ml/min; Glucose 236 mg/dL (74-106); Potassium 3.5 mmol/L (3.5-5.1); Sodium Level 133 mmol/L (136-145)
--- NOTE | 2021-03-21 06:09 | HP.PCM.HOS_ITS ---
HPI - General General Date of Admission: 03/21/21 HPI Narrative KALIE DESIR, is a 20 F with a significant history of type 1 diabetes and asthma who presents excruciating right lower quadrant pain that started a day before presentation. She described the pain as throbbing and stabbing. She rates the pain as 7 out of 10. The pain worsens with movement and standing. When she stands up she gets lightheaded. The pain improves with lying in the position and also by applying a pillow/pressure to her belly. She reports dysuria and decreased urination. She has nausea and vomiting. Her bowels have not moved for 2 days but she attributes that to not eating. Typically her pamela wels move twice in a day morning and afternoon. Actually her symptoms started with a back pain 2 days ago. The back pain then localized to her right lower quadrant as above. Also patient has control implant. She reported that on the same day of presentation she began vaginal blood spotting. The spotting is not unusual for her. She reported that irregularly she has these spots that she attributes to having her menstrual periods [facility] Medical History Asthma Diabetes type 1, controlled Home Medications albuterol sulfate [Ventolin HFA] 2 puff INHALATION Q4H PRN PRN 08/25/18 [History Last Taken 05/12/19] flash glucose sensor #2 ea 05/19/20 [Rx Last Taken Unknown] pen needle, diabetic 32 gauge x 5/32 #120 ea 05/19/20 [Rx Last Taken Unknown] insulin aspart U-100 18 unit SC TID #15 ml 05/29/20 [Rx Last Taken Unknown] insulin glargine 40 unit SC DAILY #15 ml 05/29/20 [Rx Last Taken Unknown] Allergy/AdvReac Type Severity Reaction Status Date / Time Penicillins Allergy Unknown Verified 03/21/21 03:22 Sulfa (Sulfonamide Allergy Unknown Verified 03/21/21 03:22 Antibiotics) prednisone AdvReac Vomiting Verified 03/21/21 03:22 bee stings Allergy Severe Anaphylaxis Uncoded 03/21/21 03:22 Family History Grandmother Diabetes Sister Asthma Brother Asthma Surgical History History of placement of ear tubes Social History Smoking Status: Never smoker second hand exposure: No alcohol intake: never substance use type: does not use ROS ROS Narrative Constitutional: Reports anorexia. Denies change in weight Eyes: Denies blurry vision, change in eye color, change in vision, discharge from eye(s), double vision, erythema, eye pain, loss of vision or other HEENT: Denies abnormal hearing, dysphagia, ear pain, epistaxis, headache(s), hearing loss, nasal congestion, nasal discharge, post nasal drip, sinus pressure , sore throat or other Cardiovascular: Denies chest pain. Denies dyspnea on exertion, orthopnea and paroxysmal nocturnal dyspnea Respiratory/Chest: Denies cough, excessive phlegm production, shortness of breath with exertion and wheezing Gastrointestinal: Reports abdominal pain, nausea, vomiting and constipation. Denies coffee ground emesis, diarrhea, dyspepsia, hematemesis, hematochezia, loose stools, or melena Genitourinary: Reports dysuria and decreased urination. Denies hematuria, uri nary hesitancy, urinary incontinence, urinary urgency or other Musculoskeletal: Reports back pain. Denies arthralgias, joint pain, joint stiffness, joint swelling, myalgias, neck pain or other Neurologic: Denies abnormal gait, abnormal speech, confusion, disequilibrium, dizziness, focal weakness, headache(s), numbness, paresthesias, seizure-like activity, seizures, syncope, tingling, tremor(s) or other Psychiatric: Denies anxiety, depression, homicidal ideation, suicidal ideation or other Endocrinology: Denies change in body appearance, cold intolerance, excessive sweating, or heat intolerance. Hematologic/Lymphatic: Denies anemia, easy bleeding, easy bruising, lymphadenopathy or other Integumentary: Denies rashes Allergic/Immunologic: Denies rhinitis, hives, or eczema. Vital Signs Vital Signs Vital Signs: 03/21/21 03:22 03/21/21 03:23 Temperature 97.7 F L 97.7 F L Temperature Source Temporal Temporal Pulse Rate 140 H 140 H Respiratory Rate 18 18 Blood Pressure 133/91 H 133/91 H Blood Pressure Mean 105 105 Pulse Ox 98 99 Oxygen Delivery Method Room Air Room Air Weight Weight: 53.8 kg Body Mass Index (BMI) 23.9 Physical Exam Narrative Physical exam: General: Well-nourished, well-developed. Head: Normocephalic, atraumatic, no tenderness Eyes: PERRLA, EOMI ENT, no trauma, moist mucous membranes, no rhinorrhea Neck: Nontender, full range of motion, no spinal tenderness, deformities, step- off CVS: Tachycardia, S1-S2 present. No murmur gallop or rub. Respiratory : clear to auscultation bilaterally, chest wall nontender, no wheezing Abdomen: Soft, nontender, nondistended, normal bowel sounds, no masses : Deferred Back: Nontender, no CVA tenderness, no midline spinal tenderness, deformities, step-offs Extremities: Nontender full range of motion, no trauma Skin: Normal color, no trauma, abrasions Neuro: Alert, oriented, cranial nerves II through XII grossly intact. Psychiatry: Normal mood. Normal affect. Not depressed. Not anxious. Results Lab / Micro Data Result Diagrams: 03/21/21 03:30 03/21/21 05:08 Labs: Laboratory Results - last 24 hr 03/21/21 03:30: Acetone Level MODERATE H 03/21/21 03:30: WBC 8.8, RBC 5.86 H, Hgb 17.4 H, Hct 51.2 H, MCV 87.4, MCH 29.7, MCHC 34.0, RDW Std Deviation 38.5, RDW Coeff of Marilynn 12.1, Plt Count 519 H, MPV 8.3, Immature Gran % (Auto) 0.900, Neut % (Auto) 76.0 H, Lymph % (Auto) 18.2 L, [place] % (Auto) 4.2, Eos % (Auto) 0.1, Baso % (Auto) 0.6, Absolute Neuts (auto) 6.7, Absolute Lymphs (auto) 1.61, Nucleated RBC % 0 03/21/21 03:30: Sodium 134 L, Potassium 3.7, Chloride 103, Carbon Dioxide 13.0 L , Anion Gap 18 H, BUN 11, Creatinine 0.88, Estim Creat Clear Calc 85.17, Est GFR (MDRD) Af Amer 102, Est GFR (MDRD) Non-Af 84, BUN/Creatinine Ratio 12.4, Glucose 218 H, Calcium 9.3, Total Bilirubin 0.70, AST 14 L, ALT 24, Alkaline Phosphatase 142 H, Total Protein 8.6 H, Albumin 4.5, Globulin 4.1, Albumin/Globulin Ratio 1.1 03/21/21 03:30: Serum , Qual NEGATIVE 03/21/21 05:04: POC Glucose 278 H 03/21/21 05:08: Sodium 133 L, Potassium 3.5, Chloride 103, Carbon Dioxide 12.0 L , Anion Gap 18 H, BUN 11, Creatinine 0.76, Estim Creat Clear Calc 98.61, Est GFR (MDRD) Af Amer 122, Est GFR (MDRD) Non-Af 101, BUN/Creatinine Ratio 14.6, Glucose 236 H, Calcium 8.7 Radiology Impression Abdomen/Pelvis CT 03/21/21 03:29 IMPRESSION: There is no appendicitis, colitis, ascites, hydronephrosis, abscess, collection, perforation or obstruction. Right ovarian cyst. Mesenteric lymph nodes as above appear stable mild adenitis possible. Moderate amount of retained fecal material. Electronically Signed: Willa Vila MD at 5:30 EDT , Service support , Assessment & Plan Assessment/Plan (1) DKA (diabetic ketoacidoses): QUALIFIERS: Diabetes mellitus complication detail: without coma Diabetes mellitus type: type 1 Qualified Code(s): E10.10 - Type 1 diabetes mellitus with ketoacidosis without coma PLAN: DKA Patient with tachycardia. Review of emergency department labs showed erythrocytosis; and thrombocytosis. Patient reports compliance with insulin therapy. Urinalysis with negative nitrite; negative leukocyte esterase and no bacteria. Review of medical department labs showed moderate acetone. Anion gap of 18 Sodium 133 . Corrected sodium 135 Insulin drip started from emergency department; continue Because of blood glucose of less than 250 patient was started on half-normal saline with potassium at emergency department. Half-normal saline and D5 W with 40 of potassium given at 150 mL's per hour ordered. BMP every 4 hours to calculate anion gap. N.p.o. for now Check A1c Admitted to ICU Morphine and Zofran as needed. Asthma Stable Home inhalers continued DVT prophylaxis: Low risk Charges/Coding Visit Charges Inpatient E&M: 02219 Init Hosp L3
[2021-03-21 06:11] LABS: Bedside Glucose 231 mg/dL (70-110)
[2021-03-21] MEDS: Potassium Chloride 40 MEQ in Dext 5%-0.45% NS 1,000 ML 150 MEQ IV ×2 (07:52→14:22)
[2021-03-21 08:01] LABS: Bedside Glucose 182 mg/dL (70-110)
[2021-03-21 08:01] LABS: Bedside Glucose 159 mg/dL (70-110)
[2021-03-21 08:01] LABS: Bedside Glucose 215 mg/dL (70-110)
--- NOTE | 2021-03-21 08:22 | PCS.PANDOC ---
PANDEMIC DOCUMENTATION INITIATED: Date: 03/05/2021 Time: 190
[2021-03-21 08:37] LABS: Hemoglobin A1c 10.5 % (3.8-5.6)
[2021-03-21 09:10] LABS: Bedside Glucose 143 mg/dL (70-110)
[2021-03-21 10:06] LABS: Bedside Glucose 130 mg/dL (70-110)
[2021-03-21 10:25] LABS: Anion Gap 7 (5-15); BUN 8 mg/dL (7-18); BUN/Creat Ratio 12.7 RATIO (10-20); Calcium,Total 7.7 mg/dL (8.5-10.1); Chloride 114 mmol/L (98-107); Creatinine, Serum 0.63 mg/dL (0.55-1.02); EST Glomerular Filtration Rate 125 mL/min (>60); Est Glom Filt Rate - Afr Amer 151 mL/min (>60); Estimated Creatinine Clearance 81.81 ml/min; Glucose 127 mg/dL (74-106); Potassium 3.6 mmol/L (3.5-5.1); Sodium Level 139 mmol/L (136-145)
[2021-03-21 11:16] LABS: Bedside Glucose 97 mg/dL (70-110)
[2021-03-21] MEDS: Famotidine 200 MG/20 ML MDV 20 MG in 0.9% Normal Saline (Pres. free 8 ML 300 MG IV ×2 (11:26→21:29)
[2021-03-21] MEDS: 0.9% Saline Lock 10 ML Syringe IV ×3 (11:26→16:21)
--- NOTE | 2021-03-21 11:53 | CASEMGMT ---
RN CM [employer] CM to room to meet with patient for initial transition planning/care coordination assessment. SARA NICOLE introduced self and role at [facility]. Pt voices understanding and consents to assessment at this time. Pt resting in bed in no distress at this time. Pt is A/O at this time and answers all questions appropriately. Care providers, pharmacy, and demographics verified/updated at this time. PCP: Dr Sen Specialists: Dr Chow, training project manager. Pt has an appt w/her on 04/06/21. Preferred Pharmacy: [facility] Insurance: [employer] Prescription Benefit: yes Living Will/HPOA: does not have a LW, but has HCPOA, who is her Lee hernandez Mitzy as primary POA. FatherDar is 1st alternate. Copy of HCPOA is on file @ [facility]. LNOK: FatherDar Fiance, Jamie Living Arrangements: Pt lives with her david in a first floor apartment. No steps to enter. Independent. Transportation: both pt and fiance drive. Pt states no transportation concerns at this time. DME: Functioning glucometer w/testing supplies and insulin. Patient denies additional needs at this time. Pt wishes to return home and states has no concerns with going home at time of discharge. CM to follow for any discharge planning/needs. Pt voices no further concerns/needs at this time. Advised pt to ask for CM if any further questions/concerns/needs arise. Voices understanding. PLAN: Home w/fiance and family support and discharge plans in place. Melissa MEAD RN, CM
[2021-03-21 12:06] LABS: Bedside Glucose 102 mg/dL (70-110)
[2021-03-21 13:05] LABS: Bedside Glucose 143 mg/dL (70-110)
--- NOTE | 2021-03-21 13:06 | PN.HOSP_ITS ---
Subjective Subjective Patient was seen and examined. She complains of right lower quadrant pain. Denies any fever or chills. Her gap is closed x1. CT of the abdomen and pelvis was negative for any acute intra-abdominal pathology. Objective Data Objective Data Vital Signs: Vital Signs Temp Pulse Resp BP Pulse Ox 98.9 F 99 16 111/73 98 03/21/21 12:00 03/21/21 12:00 03/21/21 12:00 03/21/21 12:00 03/21/21 12:00 Oxygen Delivery Method Room Air Weight: 37 kg Body Mass Index (BMI) 16.5 Intake & Output: Intake and Output for Last 24 Hours 03/19/21 03/20/21 03/21/21 23:59 23:59 23:59 Intake Total 2457.22 / 2457.22 Output Total 0 / 0 Balance 2457.22 / 2457.22 Lab / Micro Data Result Diagrams: 03/21/21 03:30 03/21/21 10:00 Labs: Laboratory Results - last 24 hr 03/21/21 03:30: Acetone Level MODERATE H 03/21/21 03:30: WBC 8.8, RBC 5.86 H, Hgb 17.4 H, Hct 51.2 H, MCV 87.4, MCH 29.7, MCHC 34.0, RDW Std Deviation 38.5, RDW Coeff of Marilynn 12.1, Plt Count 519 H, MPV 8.3, Immature Gran % (Auto) 0.900, Neut % (Auto) 76.0 H, Lymph % (Auto) 18.2 L, [place] % (Auto) 4.2, Eos % (Auto) 0.1, Baso % (Auto) 0.6, Absolute Neuts (auto) 6.7, Absolute Lymphs (auto) 1.61, Nucleated RBC % 0 03/21/21 03:30: Sodium 134 L, Potassium 3.7, Chloride 103, Carbon Dioxide 13.0 L , Anion Gap 18 H, BUN 11, Creatinine 0.88, Estim Creat Clear Calc 85.17, Est GFR (MDRD) Af Amer 102, Est GFR (MDRD) Non-Af 84, BUN/Creatinine Ratio 12.4, Glucose 218 H, Calcium 9.3, Total Bilirubin 0.70, AST 14 L, ALT 24, Alkaline Phosphatase 142 H, Total Protein 8.6 H, Albumin 4.5, Globulin 4.1, Albumin/Globulin Ratio 1.1 03/21/21 03:30: Serum , Qual NEGATIVE 03/21/21 03:30: Hemoglobin A1c 10.5 H 03/21/21 05:04: POC Glucose 278 H 03/21/21 05:08: Sodium 133 L, Potassium 3.5, Chloride 103, Carbon Dioxide 12.0 L , Anion Gap 18 H, BUN 11, Creatinine 0.76, Estim Creat Clear Calc 98.61, Est GFR (MDRD) Af Amer 122, Est GFR (MDRD) Non-Af 101, BUN/Creatinine Ratio 14.6, Glucose 236 H, Calcium 8.7 03/21/21 06:04: POC Glucose 231 H 03/21/21 06:45: POC Glucose 215 H 03/21/21 07:05: POC Glucose 182 H 03/21/21 07:56: POC Glucose 159 H 03/21/21 09:03: POC Glucose 143 H 03/21/21 09:59: POC Glucose 130 H 03/21/21 10:00: Sodium 139, Potassium 3.6, Chloride 114 H, Carbon Dioxide 18.0 L , Anion Gap 7, BUN 8, Creatinine 0.63, Estim Creat Clear Calc 81.81, Est GFR (MDRD) Af Amer 151, Est GFR (MDRD) Non-Af 125, BUN/Creatinine Ratio 12.7, Glucose 127 H, Calcium 7.7 L 03/21/21 11:08: POC Glucose 97 03/21/21 12:02: POC Glucose 102 03/21/21 13:02: POC Glucose 143 H Radiography Diagnostic Testing: Radiology Impression Abdomen/Pelvis CT 03/21/21 03:29 IMPRESSION: There is no appendicitis, colitis, ascites, hydronephrosis, abscess, collection, perforation or obstruction. Right ovarian cyst. Mesenteric lymph nodes as above appear stable mild adenitis possible. Moderate amount of retained fecal material. Electronically Signed: Willa Vila MD at 5:30 EDT , Service support , Physical Exam Narrative Physical exam: General: Alert, Oriented x3, Cooperative, No apparent distress, Well developed HEENT: Atraumatic Oral: Moist Mucosa Neck: Supple Lungs: Clear to auscultation Cardiovascular: HS I+II, regular, no murmurs Abdomen: Bowel Sounds Present, Soft, Non Tender Extremities: No edema Skin: No rashes, No breakdown Neurological: Grossly intact Psych/Mental Status: Appropriate Assessment & Plan Assessment/Plan (1) DKA (diabetic ketoacidoses): QUALIFIERS: Diabetes mellitus type: type 1 Diabetes mellitus complication detail: without coma Qualified Code(s): E10.10 - Type 1 diabetes mellitus with ketoacidosis without coma (2) Type I diabetes mellitus: QUALIFIERS: Diabetes mellitus complication status: with hy perglycemia Qualified Code(s): E10.65 - Type 1 diabetes mellitus with hype rglycemia (3) Asthma: QUALIFIERS: Asthma severity: mild Asthma persistence: unspecified Asthma complication type: uncomplicated Qualified Code(s): J45.909 - U nspecified asthma, uncomplicated PLAN: 1. Acute DKA in a known type I diabetic Patient is on insulin drip, continue per DKA protocol Will transfer out of ICU when gap is closed x2 2. Acute right lower quadrant pain, unclear etiology, likely related to cramps from menses We will give IV Toradol x1, famotidine IV twice daily 3. Asthma, not in acute exacerbation, as needed breathing treatments Charges/Coding Visit Charges Inpatient E&M: [id number] [facility] Hosp L3
[2021-03-21 14:15] LABS: Bedside Glucose 165 mg/dL (70-110)
[2021-03-21] MEDS: Ketorolac 15 MG/ML Vial IV (14:27)
[2021-03-21 14:32] LABS: Bacteria 0 SEEN /hpf (None Seen); Mucous, Urine 0 SEEN /hpf (<or=2+); Red Blood Cells-Urine 0 SEEN /hpf (0-5)
[2021-03-21 14:36] LABS: Color, Urine Yellow (Yellow); Glucose, Dipstick 1000 mg/dl (Normal); Leukocyte Esterase-Dipstick 25 /ul (Negative); Nitrite-Dipstick Negative (Negative); Occult Blood-Urine 150 /ul (Negative); Protein-Dipstick 30 mg/dl (Negative); Urine Bilirubin Dipstick Negative (Negative); Urine Clarity Clear (Clear); Urine Urobilinogen Normal (Normal)
[2021-03-21 14:39] LABS: Ketone-Dipstick 150 mg/dl (Negative)
[2021-03-21 14:47] LABS: Squamous Epithelial Cells - UA 0-5 SEEN /hpf (5-10); White Blood Cells 0-5 SEEN /hpf (0-5)
[2021-03-21 15:19] LABS: Anion Gap 8 (5-15); BUN 7 mg/dL (7-18); BUN/Creat Ratio 12.1 RATIO (10-20); Calcium,Total 7.9 mg/dL (8.5-10.1); Chloride 113 mmol/L (98-107); Creatinine, Serum 0.58 mg/dL (0.55-1.02); EST Glomerular Filtration Rate 137 mL/min (>60); Est Glom Filt Rate - Afr Amer 166 mL/min (>60); Estimated Creatinine Clearance 129.75 ml/min; Glucose 143 mg/dL (74-106); Potassium 3.8 mmol/L (3.5-5.1); Sodium Level 138 mmol/L (136-145)
[2021-03-21 15:26] LABS: Bedside Glucose 119 mg/dL (70-110)
[2021-03-21 16:25] LABS: Bedside Glucose 109 mg/dL (70-110)
[2021-03-21] MEDS: Insulin Lispro 100 UNIT/ML INSULN.PEN 18 UNIT SC (16:50)
[2021-03-21 19:44] LABS: Anion Gap 5 (5-15); BUN 8 mg/dL (7-18); BUN/Creat Ratio 11.9 RATIO (10-20); Calcium,Total 8.2 mg/dL (8.5-10.1); Chloride 110 mmol/L (98-107); Creatinine, Serum 0.68 mg/dL (0.55-1.02); EST Glomerular Filtration Rate 115 mL/min (>60); Est Glom Filt Rate - Afr Amer 139 mL/min (>60); Estimated Creatinine Clearance 110.67 ml/min; Glucose 206 mg/dL (74-106); Potassium 3.7 mmol/L (3.5-5.1); Sodium Level 134 mmol/L (136-145)
[2021-03-21] MEDS: Insulin Lispro 100 UNIT/ML INSULN.PEN SC (21:33)
[2021-03-21 21:46] LABS: Bedside Glucose 202 mg/dL (70-110)
[2021-03-22] VITALS: PULSE 99
[2021-03-22 04:00] VITALS: BP 119/88; PULSE 92; PULSE 97; RESP 16; TEMP 36.8; O2SAT 98
[2021-03-22 06:46] LABS: Absolute Lymphocyte Count 1.66 X10^3/uL (0.83-4.51); Absolute Neutrophil Count 3.1 X10^3/uL (2.0-7.7); Basophil# 0.03 X10^3/uL; Basophil% 0.6 % (0-1); Eosinophil# 0.06 X10^3/uL; Eosinophils% 1.1 % (0-5); Hematocrit 40.5 % (37-47); Hemoglobin 13.8 g/dL (12.0-15.0); Lymphocyte # 1.66 X10^3/ul (0.83-4.51); Lymphocyte % 31.7 % (19-41); Mean Corp Hgb Conc 34.1 g/dL (32-36); Mean Corpuscular Hgb 29.4 pg (27.0-32.0); Mean Corpuscular Volume 86.2 fL (81-99); Mean Platelet Vol. 8.1 fl (6.2-12.0); Monocyte# 0.38 X10^3/uL; Monocyte% 7.3 % (0-10); NRBC Flagged by Analyzer 0 % (0-5); Neutrophil # 3.08 X10^3/uL (2.7-7.7); Neutrophil % 58.7 % (47-70); Platelet Count 326 K/mm3 (150-450); RBC Distribution Width CV 12.3 % (11.6-14.6); RBC Distribution Width SD 38.2 fl (35.1-43.9); White Blood Count 5.2 K/mm3 (4.4-11.0)
[2021-03-22 06:59] LABS: Anion Gap 9 (5-15); BUN 7 mg/dL (7-18); BUN/Creat Ratio 10.8 RATIO (10-20); Calcium,Total 8.5 mg/dL (8.5-10.1); Chloride 111 mmol/L (98-107); Creatinine, Serum 0.65 mg/dL (0.55-1.02); EST Glomerular Filtration Rate 120 mL/min (>60); Est Glom Filt Rate - Afr Amer 145 mL/min (>60); Estimated Creatinine Clearance 116.56 ml/min; Glucose 165 mg/dL (74-106); Potassium 3.1 mmol/L (3.5-5.1); Sodium Level 142 mmol/L (136-145)
[2021-03-22 07:31] VITALS: PULSE 86
[2021-03-22] MEDS: Potassium Chloride Oral Tablet 20 MEQ 60 MEQ PO (07:48)
[2021-03-22] MEDS: Famotidine 200 MG/20 ML MDV 20 MG in 0.9% Normal Saline (Pres. free 8 ML 300 MG IV (07:49)
[2021-03-22] MEDS: 0.9% Saline Lock 10 ML Syringe IV (07:52)
[2021-03-22 08:01] VITALS: BP 117/88; PULSE 92; RESP 18; TEMP 36.6; O2SAT 98
[2021-03-22 08:10] LABS: Bedside Glucose 150 mg/dL (70-110)
[2021-03-22] MEDS: Acetaminophen 325 MG Tablet 650 MG PO (08:43)
[2021-03-22] MEDS: Insulin Lispro 100 UNIT/ML INSULN.PEN 10 UNIT SC (08:56)
--- NOTE | 2021-03-22 10:36 | PCM.DC.SUM ---
Providers Date of Admission: 03/21/21 Date of Discharge: 03/22/21 Primary Care Physician: Dr. Erika Sen MD Reason For Visit: DKA Diagnosis Discharge Diagnosis (1) DKA (diabetic ketoacidoses): Status: Resolved Code(s): E11.10 - Type 2 diabetes mellitus with ketoacidosis without coma Qualifiers: Diabetes mellitus type: type 1 Diabetes mellitus complication detail: without coma Qualified Code(s): E10.10 - Type 1 diabetes mellitus with ketoacidosis without coma (2) Type I diabetes mellitus: Status: Chronic Qualifiers: Diabetes mellitus complication status: with hyperglycemia Qualified Code(s): E10.65 - Type 1 diabetes mellitus with hyperglycemia (3) Asthma: Status: Chronic Code(s): J45.909 - Unspecified asthma, uncomplicated Qualifiers: Asthma severity: mild Asthma persistence: unspecified Asthma complication type: uncomplicated Qualified Code(s): J45.909 - Unspecified asthma, uncomplicated Medications at Discharge Home Medications albuterol sulfate [Ventolin HFA] 2 puff INHALATION Q4H PRN PRN 08/25/18 flash glucose sensor #2 ea 05/19/20 pen needle, diabetic 32 gauge x #120 ea 05/19/20 insulin aspart U-100 18 unit SC TID #15 ml 05/29/20 insulin glargine [Lantus Solostar U-100 Insulin] 20 unit SUBCUT BID 30 Days #12 ml 03/22/21 potassium chloride [Klor-Con M20] 20 meq PO DAILY 5 Days #5 tab 03/22/21 Hospital Course Operations None Procedures None Summary of Care Provided Minutes Spent on Discharge: 45 Hospital Course: 20-year-old female with past medical history of type I DM, asthma who presents with right lower quadrant pain that started a day prior to admission. She had described the pain as throbbing/standard, worse with movement, associated with lightheadedness. She had not been taking her insulin in a couple of days because she has been vomiting. In the ED, patient was found to be profoundly tach ketotic. Her blood glucose 218, her anion gap was 18, she had moderate ketones in her urine. CT of the abdomen and pelvis was negative except for mesenteric adenitis and ovarian cysts. No other acute inflammatory process. She was started on insulin drip, and admitted to the ICU. Patient continued to do well. She has been off the drip less than 12 hours into her admission. She was transitioned to her home Lantus. No other events overnight. Patient was discharged to follow-up with her nurse receptionist and primary care doctor within 1 to 2 weeks. She stated that she had enough refills of her insulin. Physical Exam Narrative Physical exam: General: Alert, Oriented x3, Cooperative, No apparent distress, Well developed HEENT: Atraumatic Oral: Moist Mucosa Neck: Supple Lungs: Clear to auscultation Cardiovascular: HS I+II, regular, no murmurs Abdomen: Bowel Sounds Present, Soft, Non Tender Extremities: No edema Skin: No rashes, No breakdown Neurological: Grossly intact Psych/Mental Status: Appropriate Weight / BMI Weight Weight: 54.386 kg Body Mass Index (BMI) 16.5 ABG / Lab / Microbiology Data Result Diagrams: 03/22/21 05:40 03/22/21 05:40 Laboratory: Laboratory Results - last 24 hr 03/21/21 11:08: POC Glucose 97 03/21/21 12:02: POC Glucose 102 03/21/21 13:02: POC Glucose 143 H 03/21/21 14:08: POC Glucose 165 H 03/21/21 14:10: Sodium Cancelled, Potassium Cancelled, Chloride Cancelled, Carbon Dioxide Cancelled, Anion Gap Cancelled, BUN Cancelled, Creatinine Cancelled, Estim Creat Clear Calc Cancelled, Est GFR (MDRD) Af Amer Cancelled, Est GFR (MDRD) Non-Af Cancelled, BUN/Creatinine Ratio Cancelled, Glucose Cancelled, Calcium Cancelled 03/21/21 14:20: Urine Color Yellow, Urine Clarity Clear, Urine pH 5.0, Ur Specific [place] 1.020, Urine Protein 30 H, Urine Glucose (UA) 1000 H, Urine Ketones 150 A*, Urine Occult Blood 150 H, Urine Nitrite Negative, Urine Bilirubin Negative, Urine Urobilinogen Normal, Ur Leukocyte Esterase 25 H, Urine RBC 0 SEEN, Urine WBC 0-5 SEEN, Ur Squamous Epith Cells 0-5 SEEN, Urine Bacteria 0 SEEN, Urine Mucus 0 SEEN 03/21/21 14:50: Sodium 138, Potassium 3.8, Chloride 113 H, Carbon Dioxide 17.0 L, Anion Gap 8, BUN 7, Creatinine 0.58, Estim Creat Clear Calc 129.75, Est GFR (MDRD) Af Amer 166, Est GFR (MDRD) Non-Af 137, BUN/Creatinine Ratio 12.1, Glucose 143 H, Calcium 7.9 L 03/21/21 15:18: POC Glucose 119 H 03/21/21 16:16: POC Glucose 109 03/21/21 18:45: Sodium 134 L, Potassium 3.7, Chloride 110 H, Carbon Dioxide 19.0 L, Anion Gap 5, BUN 8, Creatinine 0.68, Estim Creat Clear Calc 110.67, Est GFR (MDRD) Af Amer 139, Est GFR (MDRD) Non-Af 115, BUN/Creatinine Ratio 11.9, Glucose 206 H, Calcium 8.2 L 03/21/21 21:31: POC Glucose 202 H 03/22/21 05:40: WBC 5.2, RBC 4.70, Hgb 13.8, Hct 40.5, MCV 86.2, MCH 29.4, MCHC 34.1, RDW Std Deviation 38.2, RDW Coeff of Marilynn 12.3, Plt Count 326, MPV 8.1, Immature Gran % (Auto) 0.600, Neut % (Auto) 58.7, Lymph % (Auto) 31.7, [place] % (Auto) 7.3, Eos % (Auto) 1.1, Baso % (Auto) 0.6, Absolute Neuts (auto) 3.1, Absolute Lymphs (auto) 1.66, Nucleated RBC % 0 03/22/21 05:40: Sodium 142, Potassium 3.1 L, Chloride 111 H, Carbon Dioxide 22.0, Anion Gap 9, BUN 7, Creatinine 0.65, Estim Creat Clear Calc 116.56, Est GFR (MDRD) Af Amer 145, Est GFR (MDRD) Non-Af 120, BUN/Creatinine Ratio 10.8, Glucose 165 H, Calcium 8.5 03/22/21 07:41: POC Glucose 150 H D/C Instructions Discharge Diet: 1800 Calorie Control Diet Please Follow Up With: Pj Chow MD Meaningful Use Info Meaningful Use Diagnoses (Choose all that apply): None applicable Discharge Plan Admission Admit Date/Time: 03/21/21 06:08 Primary Reason for Your Visit: Acute DKA Attending Provider: Mary Rubio Primary Care Provider: Erika Sen Instructions Additional Instructions / Restrictions: Continue to take all your insulins as prescribed. Follow-up with your primary care doctor as well as primary nurse receptionist within 1 to 2 weeks. Discharge Orders/Prescriptions Prescriptions: New Lantus Solostar U-100 Insulin 100 unit/mL (3 mL) insulin pen 20 unit subcut BID 30 Days Qty: 12 RF: 0 potassium chloride [Klor-Con M20] 20 mEq tablet,ER particles/crystals 20 meq PO DAILY 5 Days Qty: 5 RF: 0 Continued (DME) FreeStyle Daniela 14 Day Sensor Kit See Rx Instructions .ROUTE .MEDSUPPLY Qty: 2 RF: 8 (DME) pen needle, diabetic [BD Ultra-Fine Opal Pen Needle] 32 gauge x 5/32 needle See Rx Instructions .ROUTE .MEDSUPPLY Qty: 120 RF: 5 albuterol sulfate [Ventolin HFA] 18 GM HFA aerosol inhaler 2 puff inhalation Q4H PRN PRN (Reason: Sob &/Or Wheezing) RF: 0 insulin aspart U-100 100 unit/mL (3 mL) insulin pen 18 unit SC TID Qty: 15 RF: 5 Discontinued insulin glargine 100 unit/mL (3 mL) insulin pen 40 unit SC DAILY Qty: 15 RF: 3 Referrals / Follow Up: Erika Sen MD [Primary Care Provider] - Within 2 Weeks Disposition Disposition (needs filled in before D/C Order can be placed): Home, Self Care
[2021-03-22] MEDS: Insulin Lispro 100 UNIT/ML INSULN.PEN 18 UNIT SC (12:01)
[2021-03-22] MEDS: Insulin Lispro 100 UNIT/ML INSULN.PEN SC (12:02)
[2021-03-22 12:21] LABS: Bedside Glucose 176 mg/dL (70-110)
[2021-03-22 12:28] VITALS: BP 133/85; PULSE 104; RESP 18; TEMP 36.6; O2SAT 100
== END 2021-03-22 12:25 | disposition home or self-care (01) | DRG 420 ==
LOC: ED 05:50 → ICU 07:18
PROVIDERS: Admitting Provider Hospitalist; Emergency Provider Emergency Medicine; PCP Internal Medicine; Visit Provider Internal Medicine
DX: E10.10 Type 1 diabetes mellitus with ketoacidosis without coma (principal); J45.909 Unspecified asthma, uncomplicated; R10.31 Right lower quadrant pain; N83.201 Unspecified ovarian cyst, right side; I88.0 Nonspecific mesenteric lymphadenitis; Z79.4 Long term (current) use of insulin
CPT/HCPCS: 74177; 80048; 80053; 81001; 82009; 82962; 83036; 84703; 85025; 96361; 96365; 96366; 96375; 96376; 97802; 99218; 99285; J7030; Q9967; A4216; G0378; J2405; J3490; J7799

== ENCOUNTER → 2021-03-28 12:03 | Outpatient (CLI) | payer MEDICAID, SELFPAY ==
[2021-03-28 16:15] LABS: Microalbumin,Random Urine < 5.0 mg/L (NO RANGE EST.)
== END ==
PROVIDERS: PCP Internal Medicine; Referring Provider Nurse Practitioner Family; Visit Provider Nurse Practitioner Family
DX: E10.65 Type 1 diabetes mellitus with hyperglycemia (principal)
CPT/HCPCS: 82043; 82570

== ENCOUNTER 2021-11-07 09:40 | Outpatient (CLI) | payer MEDICAID, SELFPAY ==
[2021-11-07 12:20] LABS: Vitamin B12 212 pg/mL (211-911); Vitamin D,25 Hydroxy 29.8 ng/mL
[2021-11-07 12:35] LABS: ALB/GLOB Ratio 1.3 RATIO (0.9-2.4); AST(SGOT) 12 U/L (15-37); Alanine Aminotransfer ALT/SGPT 19 U/L (13-56); Albumin, Serum 3.7 g/dL (3.2-5.0); Alkaline Phosphatase 50 U/L (45-117); Anion Gap 8 (5-15); BUN 13 mg/dL (7-18); BUN/Creat Ratio 27.1 RATIO (10-20); Calcium,Total 8.6 mg/dL (8.5-10.1); Chloride 107 mmol/L (98-107); Creatinine, Serum 0.48 mg/dL (0.55-1.02); EST Glomerular Filtration Rate 170 mL/min (>60); Est Glom Filt Rate - Afr Amer 205 mL/min (>60); Globulin 2.9 g/dL (2.2-4.2); Glucose 119 mg/dL (74-106); Magnesium 1.7 mg/dL (1.6-2.6); Potassium 3.7 mmol/L (3.5-5.1); Protein, Total 6.6 g/dL (6.4-8.2); Sodium Level 142 mmol/L (136-145); Thyroid Stim Hormone (TSH) 1.94 uIU/mL (0.358-3.74)
== END 2021-11-07 23:59 | disposition home or self-care (01) ==
LOC: BIMLAB 09:41
PROVIDERS: PCP Internal Medicine; Referring Provider Nurse Practitioner Family; Visit Provider Nurse Practitioner Family
DX: E10.65 Type 1 diabetes mellitus with hyperglycemia (principal); R20.2 Paresthesia of skin; R20.0 Anesthesia of skin
CPT/HCPCS: 36415; 80053; 82306; 82607; 83735; 84443

== ENCOUNTER 2022-07-23 18:29 | Emergency (ER) | payer MEDICAID, SELFPAY ==
[2022-07-23 18:31] VITALS: BP 136/81; PULSE 105; RESP 16; TEMP 36.8; O2SAT 98; BMI 27.2
--- NOTE | 2022-07-23 19:18 | EKG12_ITS ---
Test Reason : DKA Blood Pressure : / mmHG Vent. Rate : 086 BPM Atrial Rate : 086 BPM P-R Int : 116 ms QRS Dur : 078 ms QT Int : 354 ms P-R-T Axes : 035 070 027 degrees QTc Int : 423 ms Normal sinus rhythm Normal ECG Confirmed by BELLE AGOSTO, MAY ([id number]), film editor ARELY OMALLEY ([id number]) on 07/25/2022 9:42:48 AM Referred By: Confirmed By:MAY ODONNELL MD
--- NOTE | 2022-07-23 19:21 | EX.ED.DYSGE1 ---
HPI History of Present Illness Chief Complaint: Hyperglycemia Detail of Chief Complaint: Glucometer reading high Informant: patient Onset/Context/Timing Onset: Today Context: Sudden Onset Timing: Continuous Quality: Glucose high Location: Not applicable Current Severity: Severe Maximum Severity: Severe Worsened by: Nothing Relieved by: Nothing Associated Symptoms Associated Symptoms: Polyuria, polydipsia and nocturia Narrative Narrative: Patient is a 22-year-old female with type 1 diabetes since age of 9. She has an insulin pump. She states even after increasing her doses of insulin her glucometer was reading high. She does give symptoms of hyperglycemia. She denies fever, chills night sweats but denies rhinorrhea, congestion, sore throat or postnasal drainage. Denies cough or shortness of breath. She does report nausea without vomiting but does endorse diarrhea. She denies blood or mucus in her stool. She denies dysuria or hematuria. She denies skin lesions. She denies smoking. He states the letter that she has is her mother's. Prior similar symptoms: Yes (Greater than 1 year of) Recent Illness/Hospitalization: No PFSH PFSH Medical History Anxiety Asthma Depression Diabetes type 1, controlled Insulin pump titration Presence of insulin pump Home Medications albuterol sulfate 90 mcg/actuation aerosol inhaler (Ventolin HFA) 2 puff inhalation Q4H PRN PRN Sob &/Or Wheezing 08/25/18 [History Last Taken 05/12/19] pen needle, diabetic 32 gauge x 5/32 (BD Ultra-Fine Opal Pen Needle) #120 ea 05/19/20 [Rx Last Taken Unknown] potassium chloride 20 mEq tablet,extended release(part/cryst) (Klor-Con M) 20 meq PO DAILY 5 days #5 tabs 03/22/21 [Rx Last Taken Unknown] insulin aspart U-100 100 unit/mL subcutaneous solution 100 unit continuous subcutaneous infusion .continuous #90 mL 05/08/21 [Rx Last Taken Unknown] insulin pump cartridge (Omnipod Dash Insulin Pod) #5 ea 08/09/21 [History Last Taken Unknown] Ketone Urine Test (acetone (urine) test) #50 ea 11/05/21 [Rx Last Taken Unknown] FreeStyle Daniela 14 Day Sensor (flash glucose sensor) #2 ea 04/20/22 [Rx Last Taken Unknown] trazodone 50 mg tablet 50 mg PO QHS PRN 11/07/21 [History Last Taken Unknown] hydroxyzine pamoate 25 mg capsule (Vistaril) 25 mg PO QHS #30 caps 02/07/22 [Rx Last Taken Unknown] insulin pump cart,cont inf,BT (Omnipod Dash Pods (Gen 4) subcutaneous cartridge) #30 ea 04/01/22 [Rx Last Taken Unknown] Allergy/AdvReac Type Severity Reaction Status Date / Time bee venom protein (honey bee) Allergy Severe Anaphylaxis Verified 07/23/22 18:35 [bee stings] Penicillins Allergy Unknown Verified 07/23/22 18:35 Sulfa (Sulfonamide Allergy Unknown Verified 07/23/22 18:35 Antibiotics) prednisone AdvReac Vomiting Verified 07/23/22 18:35 Family History Grandmother Diabetes Sister Asthma Brother Asthma Surgical History History of placement of ear tubes Social History (Updated 07/23/22 @ 19:[address] Ted Mcghee MD) household members: family Smoking Status: Never smoker second hand exposure: No alcohol intake: never substance use type: does not use ROS ROS ED Constitutional Constitutional ED: Denies chills, fever(s), subjective, sweats or weight loss Eyes Eyes: Denies blurry vision, change in vision or diplopia ENT ENT ED: Denies ear pain, rhinorrhea or sore throat Cardiovascular Cardiovascular: Denies chest pain or palpitations Respiratory/Chest Respiratory/Chest: Denies cough, dyspnea or dyspnea on exertion Gastrointestinal Gastrointestinal: Reports diarrhea and nausea; Denies abdominal pain, melena or vomiting Genitourinary Genitourinary ED: Reports LMP (females 10-50) Details: Comment: (Last menses 4 months ago. She has an implanted device. For control); Denies dysuria, hematuria or urinary frequency Musculoskeletal Musculoskeletal: Denies arthralgias, back pain, myalgias or neck pain Integumentary Denies abscess, Abrasions or rash Neurologic Neurologic: Denies headache(s), paresthesias or weakness Psychiatric Psychiatric: Denies anxiety Endocrine Endocrinology: Reports polydipsia and polyuria; Denies cold intolerance, heat intolerance or polyphagia Hematologic/Lymphatic Hematologic/Lymphatic: Reports systems reviewed and no addt'l complaints, except as documented EXAM Physical Exam Const Vital Signs: 07/23/22 18:31 Temperature 98.2 F Temperature Source Temporal Pulse Rate 105 H Respiratory Rate 16 Blood Pressure 136/81 H Blood Pressure Mean 99 Pulse Ox 98 Oxygen Delivery Method Room Air Positive well nourished and well developed General Appearance ED: well developed, NAD and pallor; Negative for cyanotic or diaphoretic HEENT Reports dry mucous membranes HEENT Narrative: Head is atraumatic normocephalic. TMs normal. Ears normal. Nares patent. Uvula midline. No deviation with protrusion. There is no erythema or exudate of posterior pharynx. Mouth ED: Yes dry mucous membranes Mouth: dry mucous membranes Eyes PERRL and EOMs intact bilaterally General Eye ED: Negative for pale conjunctiva or scleral icterus Neck no lymphadenopathy, supple and no JVD Chest Wall inspection of chest normal and palpation of chest normal Resp normal respiratory effort and clear to auscultation bilaterally Cardio regular rhythm, S1 normal heart sound, S2 normal heart sound and no murmurs Rate: tachycardic GI normal to inspection, nondistended, normoactive bowel sounds, non-tender, non-distended and no masses; Negative for hepatosplenomegaly Back/Spine General Back: CVA tenderness Cervical Spine: Negative for cervical spine tenderness Thoracic Spine / Upper Back: Negative for thoracic spinal tenderness Extremity normal to inspection General Extremety ED: Negative for edema or tenderness General Extremity: Negative for edema Neuro oriented x3 and CN's II-XII intact bilaterally Sensorium / Orientation: alert Motor Exam: strength 5/5 throughout Psych mental status grossly normal Skin no rashes or lesions noted, no wounds and skin turgor normal General Skin Exam: pallor; Negative for jaundice MDM MDM MDM Narrative Medical decision making narrative: She presents with symptoms consistent with hyperglycemia. Appropriate blood work was obtained to assess glucose, anion gap and electrolytes as well as renal function. CBC to evaluate white count. Urine to assess for ketones, specific gravity and to determine there is evidence of infection. 1 L of normal saline was ordered. Patient's tachycardia improved with IV fluid. Suspect she was slightly dehydrated from hyperglycemia. Lab Data Attestation: I reviewed the patient's lab results. Lab results narrative: CBC is unremarkable. Basic metabolic panel is remarkable for glucose of 220. CO2 and anion normal. Urine is positive for glucose only. Microscopic is a Morphis stools. There is no evidence of infection. Since blood sugar is 200 with a normal CO2 and anion gap patient was discharged Labs: Laboratory Results - last 24 hr 07/23/22 07/23/22 07/23/22 19:25 19:25 19:26 WBC 8.3 RBC 4.92 Hgb 13.8 Hct 43.2 MCV 87.8 MCH 28.0 MCHC 31.9 L RDW Std Deviation 41.4 RDW Coeff of Marilynn 12.9 Plt Count 347 MPV 8.8 Immature Gran % (Auto) 0.200 Neut % (Auto) 77.5 H Lymph % (Auto) 17.3 L [place] % (Auto) 3.7 Eos % (Auto) 0.7 Baso % (Auto) 0.6 Absolute Neuts (auto) 6.4 Absolute Lymphs (auto) 1.43 Nucleated RBC % 0 Sodium 139 Potassium 3.8 Chloride 106 Carbon Dioxide 26.0 Anion Gap 7 BUN 11 Creatinine 0.51 L Estim Creat Clear Calc 164.43 Est GFR (MDRD) Af Amer 191 Est GFR (MDRD) Non-Af 158 BUN/Creatinine Ratio 21.7 H Glucose 220 H Calcium 9.2 Urine Color Urine Clarity Urine pH Ur Specific [place] Urine Protein Urine Glucose (UA) Urine Ketones Urine Occult Blood Urine Nitrite Urine Bilirubin Urine Urobilinogen Ur Leukocyte Esterase Urine RBC Urine WBC Ur Squamous Epith Cells Amorphous Sediment Urine Bacteria Urine Mucus POC Glucose 221 H 07/23/22 19:50 WBC RBC Hgb Hct MCV MCH MCHC RDW Std Deviation RDW Coeff of Marilynn Plt Count MPV Immature Gran % (Auto) Neut % (Auto) Lymph % (Auto) [place] % (Auto) Eos % (Auto) Baso % (Auto) Absolute Neuts (auto) Absolute Lymphs (auto) Nucleated RBC % Sodium Potassium Chloride Carbon Dioxide Anion Gap BUN Creatinine Estim Creat Clear Calc Est GFR (MDRD) Af Amer Est GFR (MDRD) Non-Af BUN/Creatinine Ratio Glucose Calcium Urine Color Yellow Urine Clarity Sl. Cloudy Urine pH 7.0 Ur Specific [place] 1.010 Urine Protein Negative Urine Glucose (UA) 250 H Urine Ketones Negative Urine Occult Blood Negative Urine Nitrite Negative Urine Bilirubin Negative Urine Urobilinogen Normal Ur Leukocyte Esterase Negative Urine RBC 0 SEEN Urine WBC 0 SEEN Ur Squamous Epith Cells 0-5 SEEN Amorphous Sediment 2+ URATE Urine Bacteria 0 SEEN Urine Mucus 0 SEEN POC Glucose Rhythm Strip Rhythm Strip: Sinus Tach Rate: 108 Ectopy: None EKG Initial EKG: Attestation: I personally reviewed and interpreted this EKG as follows: Interpretation: Sinus Rhythm (Rate is 86. EKG is normal. [place] interval is 160 ms. QRS duration 78 ms. QT duration 3 and 54 ms. [place] is normal.) Discharge Plan Triage Chief Complaint: Hyperglycemia ED Provider: Ted Mcghee Dx/Rx/DC Orders Clinical Impression: Hyperglycemia due to type 1 diabetes mellitus, Dehydration, mild, Sinus tachycardia Instructions: ED Diabetic Hyperglycemia Prescriptions: No Action (DME) pen needle, diabetic [BD Ultra-Fine Opal Pen Needle] 32 gauge x 5/32 needle See Rx Instructions .ROUTE .MEDSUPPLY Qty: 120 5RF Rx Instructions: 4 times daily insulin aspart U-100 100 unit/mL solution 100 unit continuous subcutaneous infusion .continuous Qty: 90 3RF (DME) Omnipod Dash Pods (Gen 4) Cartridge See Rx Instructions .ROUTE .MEDSUPPLY Qty: 5 Rx Instructions: As directed trazodone 50 mg tablet 50 mg PO QHS PRN (DME) FreeStyle Daniela 14 Day Sensor Kit See Rx Instructions .ROUTE .MEDSUPPLY Qty: 2 3RF Rx Instructions: As directed hydroxyzine pamoate [Vistaril] 25 mg capsule 25 mg PO QHS Qty: 30 6RF albuterol sulfate [Ventolin HFA] 18 GM HFA aerosol inhaler 2 puff inhalation Q4H PRN PRN (Reason: Sob &/Or Wheezing) Label Comments: inhale 2 puffs by mouth every 4 hours if needed potassium chloride [Klor-Con M20] 20 mEq tablet,ER particles/crystals 20 meq PO DAILY 5 Days Qty: 5 0RF (DME) Ketone Urine Test Strip See Rx Instructions .ROUTE .MEDSUPPLY Qty: 50 1RF Rx Instructions: once/day (DME) Omnipod Dash Pods (Gen 4) Cartridge See Rx Instructions .Route Qty: 30 1RF Rx Instructions: 1 pod q 48-72 hours Primary Care Provider: Erika Sen Referrals: Erika Sen MD [Primary Care Provider] - As Needed Disposition Disposition: Home, Self Care
[2022-07-23] MEDS: 0.9% Normal Saline 1,000 ML 1000 ML IV (19:42)
[2022-07-23 19:46] LABS: Bedside Glucose 221 mg/dL (74-106)
[2022-07-23 19:50] LABS: Absolute Lymphocyte Count 1.43 X10^3/uL (0.83-4.51); Absolute Neutrophil Count 6.4 X10^3/uL (2.0-7.7); Basophil# 0.05 X10^3/uL; Basophil% 0.6 % (0-1); Eosinophil# 0.06 X10^3/uL; Eosinophils% 0.7 % (0-5); Hematocrit 43.2 % (37-47); Hemoglobin 13.8 g/dL (12.0-15.0); Lymphocyte # 1.43 X10^3/ul (0.83-4.51); Lymphocyte % 17.3 % (19-41); Mean Corp Hgb Conc 31.9 g/dL (32-36); Mean Corpuscular Volume 87.8 fL (81-99); Mean Platelet Vol. 8.8 fl (6.2-12.0); Monocyte# 0.31 X10^3/uL; Monocyte% 3.7 % (0-10); NRBC Flagged by Analyzer 0 % (0-5); Neutrophil % 77.5 % (47-70); Platelet Count 347 K/mm3 (150-450); RBC Distribution Width CV 12.9 % (11.6-14.6); RBC Distribution Width SD 41.4 fl (35.1-43.9); Red Blood Count 4.92 M/mm3 (4.2-5.4); White Blood Count 8.3 K/mm3 (4.4-11.0)
[2022-07-23 19:58] LABS: Bacteria 0 SEEN /hpf (None Seen); Mucous, Urine 0 SEEN /hpf (<or=2+); Red Blood Cells-Urine 0 SEEN /hpf (0-5); White Blood Cells 0 SEEN /hpf (0-5)
[2022-07-23 20:12] LABS: Anion Gap 7 (5-15); BUN 11 mg/dL (7-18); BUN/Creat Ratio 21.7 RATIO (10-20); Calcium,Total 9.2 mg/dL (8.5-10.1); Chloride 106 mmol/L (98-107); Creatinine, Serum 0.51 mg/dL (0.55-1.02); EST Glomerular Filtration Rate 158 mL/min (>60); Est Glom Filt Rate - Afr Amer 191 mL/min (>60); Estimated Creatinine Clearance 164.43 ml/min; Glucose 220 mg/dL (74-106); Potassium 3.8 mmol/L (3.5-5.1); Sodium Level 139 mmol/L (136-145)
[2022-07-23 20:16] LABS: Color, Urine Yellow (Yellow); Glucose, Dipstick 250 mg/dl (Normal); Ketone-Dipstick Negative (Negative); Leukocyte Esterase-Dipstick Negative /ul (Negative); Nitrite-Dipstick Negative (Negative); Occult Blood-Urine Negative /ul (Negative); Protein-Dipstick Negative (Negative); Urine Bilirubin Dipstick Negative (Negative); Urine Clarity Sl. Cloudy (Clear); Urine Urobilinogen Normal (Normal)
[2022-07-23 20:23] LABS: Amorphous Sediment 2+ URATE; Squamous Epithelial Cells - UA 0-5 SEEN /hpf (5-10)
[2022-07-23 21:20] LABS: Bedside Glucose 161 mg/dL (74-106)
== END 2022-07-23 21:27 | disposition home or self-care (01) ==
PROVIDERS: Emergency Provider Emergency Medicine; PCP Internal Medicine; Visit Provider Emergency Medicine
DX: E10.65 Type 1 diabetes mellitus with hyperglycemia (principal); R35.89 Other polyuria; Z96.41 Presence of insulin pump (external) (internal); E86.0 Dehydration; R00.0 Tachycardia, unspecified
CPT/HCPCS: 80048; 81001; 82962; 85025; 93005; 96360; 99283; J7030; A4216

== ENCOUNTER 2022-11-21 17:03 | Inpatient (IN) | payer MEDICAID, SELFPAY ==
[2022-11-21] VITALS (7 sets, daily range): BP systolic 122–151; BP diastolic 67–82; PULSE 89–118; RESP 15–24; TEMP 36.5–36.9; O2SAT 93–100; BMI 28.0
--- NOTE | 2022-11-21 17:24 | EDS_ITS ---
HPI History of Present Illness Chief Complaint: Hyperglycemia [facility] Medical History Anxiety Asthma Depression Diabetes type 1, controlled Insulin pump titration Presence of insulin pump Home Medications albuterol sulfate 90 mcg/actuation aerosol inhaler (Ventolin HFA) 2 puff inhalation Q4H PRN PRN Sob &/Or Wheezing 08/25/18 [History Last Taken 05/12/19] pen needle, diabetic 32 gauge x 5/32 (BD Ultra-Fine Opal Pen Needle) #120 ea 05/19/20 [Rx Last Taken Unknown] Ketone Urine Test (acetone (urine) test) #50 ea 11/05/21 [Rx Last Taken Unknown] FreeStyle Daniela 14 Day Sensor (flash glucose sensor) #2 ea 11/07/21 [Rx Last Taken Unknown] hydroxyzine pamoate 25 mg capsule (Vistaril) 25 mg PO QHS #30 caps 02/07/22 [Rx Last Taken Unknown] blood-glucose sensor (Dexcom G6 Sensor device) #10 ea 09/26/22 [Rx Last Taken Unknown] blood-glucose transmitter (Dexcom G6 Transmitter device) #1 ea 09/26/22 [Rx Last Taken Unknown] insulin aspart U-100 100 unit/mL subcutaneous solution 100 unit continuous subcutaneous infusion .continuous #90 mL 09/26/22 [Rx Last Taken Unknown] potassium citrate 99 mg capsule 99 mg PO DAILY 09/26/22 [History Last Taken Unknown] insulin pump cart,automated,BT (Omnipod 5 G6 Pods (Gen 5) subcutaneous cartridge) #45 ea 11/08/22 [Rx Last Taken Unknown] insulin pump cart,automated,BT (Omnipod 5 G6 Pods (Gen 5) subcutaneous cartridge) #10 ea 11/15/22 [Rx Last Taken Unknown] insulin pump cartridge,automated dose,BT with controller subcutaneous (Omnipod 5 G6 Intro Kit (Gen 5) subcutaneous cartridge with controller) #1 ea 11/15/22 [Rx Last Taken Unknown] Allergy/AdvReac Type Severity Reaction Status Date / Time bee venom protein (honey bee) Allergy Severe Anaphylaxis Verified 11/21/22 17:08 [bee stings] Penicillins Allergy Unknown Verified 11/21/22 17:08 Sulfa (Sulfonamide Allergy Unknown Verified 11/21/22 17:08 Antibiotics) prednisone AdvReac Vomiting Verified 11/21/22 17:08 Family History Grandmother Diabetes Sister Asthma Brother Asthma Surgical History History of placement of ear tubes Social History household members: family Smoking Status: Never smoker second hand exposure: No alcohol intake: never substance use type: does not use EXAM Physical Exam Const Vital Signs: 11/21/22 17:04 Temperature 97.7 F L Temperature Source Temporal Pulse Rate 110 H Respiratory Rate 18 Blood Pressure 122/80 H Blood Pressure Mean 94 Pulse Ox 98 Discharge Plan Triage Chief Complaint: Hyperglycemia ED Midlevel Provider: Naveed Vasquez ED Provider: Lance Ruiz Dx/Rx/DC Orders Prescriptions: No Action (DME) pen needle, diabetic [BD Ultra-Fine Opal Pen Needle] 32 gauge x 5/32 needle See Rx Instructions .ROUTE .MEDSUPPLY Qty: 120 5RF Rx Instructions: 4 times daily (DME) FreeStyle Daniela 14 Day Sensor Kit See Rx Instructions .ROUTE .MEDSUPPLY Qty: 2 3RF Rx Instructions: As directed hydroxyzine pamoate [Vistaril] 25 mg capsule 25 mg PO QHS Qty: 30 6RF potassium citrate 99 mg capsule 99 mg PO DAILY insulin aspart U-100 100 unit/mL solution 100 unit continuous subcutaneous infusion .continuous Qty: 90 1RF (DME) Dexcom G6 Sensor Device See Rx Instructions .Route Qty: 10 5RF Rx Instructions: As directed (DME) Dexcom G6 Transmitter Device See Rx Instructions .Route Qty: 1 3RF Rx Instructions: As directed albuterol sulfate [Ventolin HFA] 18 GM HFA aerosol inhaler 2 puff inhalation Q4H PRN PRN (Reason: Sob &/Or Wheezing) Label Comments: inhale 2 puffs by mouth every 4 hours if needed (DME) Ketone Urine Test Strip See Rx Instructions .ROUTE .MEDSUPPLY Qty: 50 1RF Rx Instructions: once/day (DME) Omnipod 5 G6 Pods (Gen 5) Cartridge See Rx Instructions .Route Qty: 45 1RF Rx Instructions: change every 48-72 hours (DME) Omnipod 5 G6 Intro Kit (Gen 5) Cartridge See Rx Instructions .Route Qty: 1 0RF Rx Instructions: As directed (DME) Omnipod 5 G6 Pods (Gen 5) Cartridge See Rx Instructions .Route Qty: 10 5RF Rx Instructions: As directed Primary Care Provider: Erika Sen Referrals: Erika Sen MD [Primary Care Provider] -
[2022-11-21 17:30] LABS: Bedside Glucose 431 mg/dL (74-106)
--- NOTE | 2022-11-21 17:33 | EX.ED.DYSGE1 ---
HPI <DONOVAN Billingsley - Last Filed: 11/21/22 19:46> History of Present Illness Chief Complaint: Hyperglycemia Narrative Narrative: Patient is a 22-year-old female with history of type 1 diabetes since 9 years old who presents to the emergency department with nausea, vomiting, generalized abdominal pain that began roughly around 3 AM this morning. Patient states her younger sister did have a stomachache however does not have nausea vomiting diarrhea. Patient states that she cannot stop vomiting, states that her sugar read high on the monitor. Here she was greater than 470. She feels dehydrated, and is here for evaluation. PFSH <DONOVAN Billingsley - Last Filed: 11/21/22 19:46> [facility] Medical History Anxiety and depression Asthma Diabetes type 1, controlled History of marijuana use Implanon in place Insulin pump titration Presence of insulin pump Home Medications albuterol sulfate 90 mcg/actuation aerosol inhaler (Ventolin HFA) 2 puff inhalation Q4H PRN PRN Sob &/Or Wheezing 08/25/18 [History Last Taken 05/12/19] pen needle, diabetic 32 gauge x 5/32 (BD Ultra-Fine Opal Pen Needle) #120 ea 05/19/20 [Rx Last Taken Unknown] Ketone Urine Test (acetone (urine) test) #50 ea 11/05/21 [Rx Last Taken Unknown] FreeStyle Daniela 14 Day Sensor (flash glucose sensor) #2 ea 11/07/21 [Rx Last Taken Unknown] hydroxyzine pamoate 25 mg capsule (Vistaril) 25 mg PO QHS #30 caps 02/07/22 [Rx Last Taken Unknown] blood-glucose sensor (Dexcom G6 Sensor device) #10 ea 09/26/22 [Rx Last Taken Unknown] blood-glucose transmitter (Dexcom G6 Transmitter device) #1 ea 09/26/22 [Rx Last Taken Unknown] insulin aspart U-100 100 unit/mL subcutaneous solution 100 unit continuous subcutaneous infusion .continuous #90 mL 09/26/22 [Rx Last Taken Unknown] potassium citrate 99 mg capsule 99 mg PO DAILY 09/26/22 [History Last Taken Unknown] insulin pump cart,automated,BT (Omnipod 5 G6 Pods (Gen 5) subcutaneous cartridge) #45 ea 11/08/22 [Rx Last Taken Unknown] insulin pump cart,automated,BT (Omnipod 5 G6 Pods (Gen 5) subcutaneous cartridge) #10 ea 11/15/22 [Rx Last Taken Unknown] insulin pump cartridge,automated dose,BT with controller subcutaneous (Omnipod 5 G6 Intro Kit (Gen 5) subcutaneous cartridge with controller) #1 ea 11/15/22 [Rx Last Taken Unknown] fluticasone propionate 50 mcg/actuation nasal spray,suspension intranasal 11/21/22 [History Last Taken Unknown] Allergy/AdvReac Type Severity Reaction Status Date / Time bee venom protein (honey bee) Allergy Severe Anaphylaxis Verified 11/21/22 17:08 [bee stings] Penicillins Allergy Unknown Verified 11/21/22 17:08 Sulfa (Sulfonamide Allergy Unknown Verified 11/21/22 17:08 Antibiotics) prednisone AdvReac Vomiting Verified 11/21/22 17:08 Family History (Updated 11/21/22 @ 19:[address] Delia Navarro MD) Grandmother Diabetes Sister Asthma Brother Asthma Mother Heart disease Surgical History History of placement of ear tubes Social History (Updated 11/21/22 @ 19:[address] Delia Navarro MD) household members: family Smoking Status: Never smoker second hand exposure: No alcohol intake: never substance use type: other details: Cannabis, last use ~ 1 month prior, ingested. ROS <DONOVAN Billingsley - Last Filed: 11/21/22 19:46> ROS ED ROS Narrative Constitutional: Negative for fever, chills, weight loss, weakness Eyes: Negative for vision loss, vision change, double vision ENT: Negative for any sore throat, ear pain, congestion Cardiovascular: Negative for any chest pain, tightness, palpitations Respiratory: Negative for any cough, sputum production, hemoptysis, dyspnea, dyspnea on exertion, orthopnea Gastrointestinal: Negative for any constipation, blood in stool, blood in vomit. Positive for abdominal pain, nausea, vomiting : Negative for any urinary frequency, dysuria, retention, blood in urine Muscle skeletal: Negative for any muscle joint pain, stiffness, myalgias, arthralgias, neck pain, back pain Neurological: Negative for any headache, syncope, numbness or tingling, dizziness Skin: Negative for any rashes, lumps, itching, abrasions, lacerations Psychiatric: Negative for any depression, anxiety, stress, suicidal ideation, homicidal ideation Hematologic: Negative for any easy bruising, excessive bruising, easy bleeding Allergies: Negative for any eczema, hives, rash EXAM <DONOVAN Billingsley - Last Filed: 11/21/22 19:46> Physical Exam Narrative Exam Narrative: Vital signs reviewed. Patient slightly tachycardic, I do smell ketones upon initial examination HEET: Head normocephalic atraumatic, TMs clear bilaterally. Posterior pharynx is clear, dry mucous membranes. Nares clear bilaterally. Neck: Supple with no lymphadenopathy or tenderness. No signs of meningismus, negative jolt sign. Cardiac: Regular rate and rhythm no murmurs gallops or rubs, equal peripheral pulses bilaterally. Respiratory: Lungs clear to auscultation bilaterally. No chest tenderness. Tachypneic Abdomen: Soft, nondistended. No abdominal bruit or pulsatile masses. No hepatosplenomegaly. Active bowel sounds in all quadrants, tenderness throughout the entire abdomen, abdomen is soft, no peritoneal signs. Extremities: No peripheral edema, no signs of gross trauma or deformity. Active full range of motion of all extremities. Neuro: Cranial nerves II through XII intact, no focal neurological deficits. Skin: Clean dry and intact with no rash, purpura, petechiae, vesicles or pustules. Backs/flank: No CVA tenderness, no midline spinal tenderness, no deformity. Psych: Normal mood and affect. No SI, HI or acute psychosis. Const Vital Signs: 11/21/22 17:04 Temperature 97.7 F L Temperature Source Temporal Pulse Rate 110 H Respiratory Rate 18 Blood Pressure 122/80 H Blood Pressure Mean 94 Pulse Ox 98 Positive well nourished and well developed General Appearance ED: well developed <Dr. Lance Ruiz MD - Last Filed: 11/21/22 21:47> Physical Exam Const Vital Signs: 11/21/22 17:04 Temperature 97.7 F L Temperature Source Temporal Pulse Rate 110 H Respiratory Rate 18 Blood Pressure 122/80 H Blood Pressure Mean 94 Pulse Ox 98 [facility] <DONOVAN Billingsley - Last Filed: 11/21/22 19:46> [facility] Lab Data Labs: Laboratory Results - last 24 hr 11/21/22 11/21/22 11/21/22 17:11 17:35 17:35 WBC 21.0 H RBC 5.38 Hgb 15.2 H Hct 46.6 MCV 86.6 MCH 28.3 MCHC 32.6 RDW Std Deviation 39.8 RDW Coeff of Marilynn 12.8 Plt Count 440 MPV 9.4 Immature Gran % (Auto) 0.600 Neut % (Auto) 95.2 H Lymph % (Auto) 2.9 L [place] % (Auto) 1.0 Eos % (Auto) 0.0 Baso % (Auto) 0.3 Absolute Neuts (auto) 20.0 H Absolute Lymphs (auto) 0.61 L Nucleated RBC % 0 Differential Comment SCANNED Sodium 137 Potassium 4.0 Chloride 98 Carbon Dioxide 15.0 L Anion Gap 24 H BUN 20 H Creatinine 1.12 H Estim Creat Clear Calc 77.03 Est GFR (MDRD) Af Amer 77 Est GFR (MDRD) Non-Af 63 BUN/Creatinine Ratio 17.9 Glucose 452 H* Lactic Acid Calcium 10.2 H Phosphorus Magnesium Total Bilirubin 0.80 AST 14 L ALT 24 Alkaline Phosphatase 110 Total Protein 9.3 H Albumin 5.0 Globulin 4.3 H Albumin/Globulin Ratio 1.2 Lipase 10 L Acetone Level POC Glucose 431 H 11/21/22 11/21/22 11/21/22 17:35 17:35 17:35 WBC RBC Hgb Hct MCV MCH MCHC RDW Std Deviation RDW Coeff of Marilynn Plt Count MPV Immature Gran % (Auto) Neut % (Auto) Lymph % (Auto) [place] % (Auto) Eos % (Auto) Baso % (Auto) Absolute Neuts (auto) Absolute Lymphs (auto) Nucleated RBC % Differential Comment Sodium Potassium Chloride Carbon Dioxide Anion Gap BUN Creatinine Estim Creat Clear Calc Est GFR (MDRD) Af Amer Est GFR (MDRD) Non-Af BUN/Creatinine Ratio Glucose Lactic Acid 3.4 H* Calcium Phosphorus 5.7 H Magnesium 2.1 Total Bilirubin AST ALT Alkaline Phosphatase Total Protein Albumin Globulin Albumin/Globulin Ratio Lipase Acetone Level MODERATE H POC Glucose Treatment and Re-Evaluation :: Patient appears to be in mild distress secondary to nausea, vomit, abdominal pain. Upon initial evaluation, patient is concerned that she might be in DKA. Patient did have ketones that I was able to smell in the room. Patient did receive a full DKA work-up. Patient was given IV fluids, patient's laboratory values showed a leukocytosis with a white blood count 21,000. She has had this in the past whenever she does have DKA. Patient's chemistries show a normal sodium, creatinine was slightly elevated 1.12, patient is normally 0.5. Patient's blood glucose was 452 with a lactic acid at 3.4. Patient acetone level was moderate. She has been unable to provide a urinary sample however she states that the fluids did cause her and she did go outside of the bed onto the floor. She states that she cannot get to the bathroom in time. Patient was started on IV insulin drip. Initial diagnosis included gastroenteritis, acute cholecystitis, bowel obstruction. After patient received IV fluids, IV morphine, IV Zofran. Patient was reevaluated, patient's abdomen is much less tender. I believe the leukocytosis is secondary to the nausea, vomiting, DKA. Patient has had abdominal pain while in DKA again. Patient started insulin drip, will need to be admitted to the hospital. Patient be admitted to ICU. <Dr. Lance Ruiz MD - Last Filed: 11/21/22 21:47> [facility] Narrative Medical decision making narrative: I have personally performed a face to face assessment of the patient and have reviewed the ARNOLD Note. I performed a substantive portion of the visit including all aspects of the following. My durand findings include: History: Patient presents with nausea vomiting abdominal pain. She states yesterday she was feeling fine. Her new her insulin pump stopped working and she did not have insulin for about 12 hours. She is not sure of her basal rate but states she did uses about 40 units total a day. She started just feel bad with this. When she went home she did put on a new insulin pump and she states it is working and functioning normally. But her nausea vomiting and GI upset have progressed. She has been still trying to eat and drink. She has not lost her appetite but she cannot keep anything down. She has had DKA before and is not sure if this feels the same. Exam: Patient awake alert. She does appear to have somewhat dry mucous membranes. Heart rate is mildly tachycardic. Abdomen is soft. Mild epigastric tenderness but no significantly distended abdomen or tenderness. She has vomited but no blood is seen. Medical Decision Making: Patient will be given IV fluids, meds for pain nausea. Blood work is ordered. These are pending at this time. Blood work is consistent with diabetic ketoacidosis. She is given IV fluids and insulin drip ordered. At this point the patient lost her IV. She had had 1 in her left arm it was flowing but slowly. There were multiple times to get an IV. I went in to talk with her about doing a central line. However there was a external jugular. Nurse was able to place an IV there. I think this is better than central line at this point as this patient just started getting sick yesterday and she will probably turn around very quickly. Abdomen is much more benign. I think her white count is from vomiting and demargination. I do not think she needs CAT scan of her abdomen. With repeat visits, adjusting therapy, talking with consultants, critical care time of 40 minutes. Lab Data Labs: Laboratory Results - last 24 hr 11/21/22 11/21/22 11/21/22 17:11 17:35 17:35 WBC 21.0 H RBC 5.38 Hgb 15.2 H Hct 46.6 MCV 86.6 MCH 28.3 MCHC 32.6 RDW Std Deviation 39.8 RDW Coeff of Marilynn 12.8 Plt Count 440 MPV 9.4 Immature Gran % (Auto) 0.600 Neut % (Auto) 95.2 H Lymph % (Auto) 2.9 L [place] % (Auto) 1.0 Eos % (Auto) 0.0 Baso % (Auto) 0.3 Absolute Neuts (auto) 20.0 H Absolute Lymphs (auto) 0.61 L Nucleated RBC % 0 Differential Comment SCANNED Sodium 137 Potassium 4.0 Chloride 98 Carbon Dioxide 15.0 L Anion Gap 24 H BUN 20 H Creatinine 1.12 H Estim Creat Clear Calc 77.03 Est GFR (MDRD) Af Amer 77 Est GFR (MDRD) Non-Af 63 BUN/Creatinine Ratio 17.9 Glucose 452 H* Lactic Acid Calcium 10.2 H Phosphorus Magnesium Total Bilirubin 0.80 AST 14 L ALT 24 Alkaline Phosphatase 110 Total Protein 9.3 H Albumin 5.0 Globulin 4.3 H Albumin/Globulin Ratio 1.2 Lipase 10 L Acetone Level POC Glucose 431 H 05/04/23 05/04/23 05/04/23 17:35 17:35 17:35 WBC RBC Hgb Hct MCV MCH MCHC RDW Std Deviation RDW Coeff of Marilynn Plt Count MPV Immature Gran % (Auto) Neut % (Auto) Lymph % (Auto) [place] % (Auto) Eos % (Auto) Baso % (Auto) Absolute Neuts (auto) Absolute Lymphs (auto) Nucleated RBC % Differential Comment Sodium Potassium Chloride Carbon Dioxide Anion Gap BUN Creatinine Estim Creat Clear Calc Est GFR (MDRD) Af Amer Est GFR (MDRD) Non-Af BUN/Creatinine Ratio Glucose Lactic Acid 3.4 H* Calcium Phosphorus 5.7 H Magnesium 2.1 Total Bilirubin AST ALT Alkaline Phosphatase Total Protein Albumin Globulin Albumin/Globulin Ratio Lipase Acetone Level MODERATE H POC Glucose <Dr. 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
[2022-11-21] MEDS: 0.9% Normal Saline 1,000 ML 1000 ML IV (17:35)
[2022-11-21] MEDS: Morphine 4 MG/ML Syringe IV (17:36)
[2022-11-21] MEDS: Ondansetron 4 MG/2 ML Vial IV (17:36)
[2022-11-21 17:48] LABS: Absolute Lymphocyte Count 0.61 X10^3/uL (0.83-4.51); Basophil# 0.06 X10^3/uL; Basophil% 0.3 % (0-1); Hematocrit 46.6 % (37-47); Hemoglobin 15.2 g/dL (12.0-15.0); Lymphocyte # 0.61 X10^3/ul (0.83-4.51); Lymphocyte % 2.9 % (19-41); Mean Corp Hgb Conc 32.6 g/dL (32-36); Mean Corpuscular Hgb 28.3 pg (27.0-32.0); Mean Corpuscular Volume 86.6 fL (81-99); Mean Platelet Vol. 9.4 fl (6.2-12.0); NRBC Flagged by Analyzer 0 % (0-5); Neutrophil # 20.03 X10^3/uL (2.7-7.7); Neutrophil % 95.2 % (47-70); POSITIVE DIFFERENTIAL YES; Platelet Count 440 K/mm3 (150-450); RBC Distribution Width CV 12.8 % (11.6-14.6); RBC Distribution Width SD 39.8 fl (35.1-43.9); Red Blood Count 5.38 M/mm3 (4.2-5.4)
[2022-11-21 17:52] LABS: Differential Indicated SCAN CRITERIA MET
[2022-11-21 18:20] LABS: Lactic Acid 3.4 mmol/L (0.4-1.9)
[2022-11-21 18:23] LABS: Differential Comment SCANNED
[2022-11-21 18:33] LABS: ALB/GLOB Ratio 1.2 RATIO (0.9-2.4); AST(SGOT) 14 U/L (15-37); Alanine Aminotransfer ALT/SGPT 24 U/L (13-56); Alkaline Phosphatase 110 U/L (45-117); Anion Gap 24 (5-15); BUN 20 mg/dL (7-18); BUN/Creat Ratio 17.9 RATIO (10-20); Calcium,Total 10.2 mg/dL (8.5-10.1); Chloride 98 mmol/L (98-107); Creatinine, Serum 1.12 mg/dL (0.55-1.02); EST Glomerular Filtration Rate 63 mL/min (>60); Est Glom Filt Rate - Afr Amer 77 mL/min (>60); Estimated Creatinine Clearance 77.03 ml/min; Globulin 4.3 g/dL (2.2-4.2); Glucose 452 mg/dL (74-106); Lipase 10 U/L (13-75); Protein, Total 9.3 g/dL (6.4-8.2); Sodium Level 137 mmol/L (136-145)
--- NOTE | 2022-11-21 19:14 | HP.PCM.HOS_ITS ---
HPI - General General Date of Admission: 11/21/22 Date of Service: 11/21/22 Chief Complaint: Nausea, emesis, abdominal discomfort, elevated BS. HPI Narrative The patient is a 22 y/o F w/ PMHx: Anxiety and Depression, Asthma with allergic rhinitis, IDDM with insulin pump diagnosed at age 9 who presents to the [facility] ED onb 11/21/22 with history of onset nausea, emesis, generalized abdominal discomfort starting at ~ 3 am on day of presentation with reported younger sister with recent illness but no specific GI component with onset hyperglycemia on her monitor with persistent nausea and intractable emesis prompting eventual ED evaluation. She notes that her sister primarily had upper respiratory type symptoms and that she herself has not had any of these nor any fevers or chills or any issues with urination. She does admit to polydipsia. Work-up in the ED included T97.7, heart rate 110, BP 122/80, respiratory rate 18, 98% on room air, CBC with WC 21, hemoglobin 15.2, platelet 440 with left shift and lymphopenia, CMP with, lactic 15, anion gap 24, BUN/current 20/1.12, glucose 452, lactic acid 3.4, calcium 10.2, hepatic profile not marked appearing, lipase 10, acetone moderate. In the ED patient ministered 1 L normal saline, morphine 4 mg IV x1, Zofran 4 mg IV x1 initiated on insulin drip. [facility] Medical History Anxiety and depression Asthma Diabetes type 1, controlled History of marijuana use Implanon in place Insulin pump titration Presence of insulin pump Home Medications albuterol sulfate 90 mcg/actuation aerosol inhaler (Ventolin HFA) 2 puff inhalation Q4H PRN PRN Sob &/Or Wheezing 08/25/18 [History Last Taken 05/12/19] pen needle, diabetic 32 gauge x 5/32 (BD Ultra-Fine Opal Pen Needle) #120 ea 05/19/20 [Rx Last Taken Unknown] Ketone Urine Test (acetone (urine) test) #50 ea 11/05/21 [Rx Last Taken Unknown] FreeStyle Daniela 14 Day Sensor (flash glucose sensor) #2 ea 11/07/21 [Rx Last Taken Unknown] hydroxyzine pamoate 25 mg capsule (Vistaril) 25 mg PO QHS #30 caps 02/07/22 [Rx Last Taken Unknown] blood-glucose sensor (Dexcom G6 Sensor device) #10 ea 09/26/22 [Rx Last Taken Unknown] blood-glucose transmitter (Dexcom G6 Transmitter device) #1 ea 09/26/22 [Rx Last Taken Unknown] insulin aspart U-100 100 unit/mL subcutaneous solution 100 unit continuous subcutaneous infusion .continuous #90 mL 09/26/22 [Rx Last Taken Unknown] potassium citrate 99 mg capsule 99 mg PO DAILY 09/26/22 [History Last Taken Unknown] insulin pump cart,automated,BT (Omnipod 5 G6 Pods (Gen 5) subcutaneous cartridge) #45 ea 11/08/22 [Rx Last Taken Unknown] insulin pump cart,automated,BT (Omnipod 5 G6 Pods (Gen 5) subcutaneous cartridge) #10 ea 11/15/22 [Rx Last Taken Unknown] insulin pump cartridge,automated dose,BT with controller subcutaneous (Omnipod 5 G6 Intro Kit (Gen 5) subcutaneous cartridge with controller) #1 ea 11/15/22 [Rx Last Taken Unknown] fluticasone propionate 50 mcg/actuation nasal spray,suspension intranasal 11/21/22 [History Last Taken Unknown] Allergy/AdvReac Type Severity Reaction Status Date / Time bee venom protein (honey bee) Allergy Severe Anaphylaxis Verified 11/21/22 17:08 [bee stings] Penicillins Allergy Unknown Verified 11/21/22 17:08 Sulfa (Sulfonamide Allergy Unknown Verified 11/21/22 17:08 Antibiotics) prednisone AdvReac Vomiting Verified 11/21/22 17:08 Family History (Updated 11/21/22 @ 19:[address] Delia Navarro MD) Grandmother Diabetes Sister Asthma Brother Asthma Mother Heart disease other (Denies knowledge of her paternal family history.) Surgical History History of placement of ear tubes Social History (Updated 11/21/22 @ 19:[address] Delia Navarro MD) household members: family Smoking Status: Never smoker second hand exposure: No alcohol intake: never substance use type: other details: Cannabis, last use ~ 1 month prior, ingested. ROS ROS Narrative Admission Review of Systems: CONSTITUTIONAL: No weight loss, fever, chills, + weakness or fatigue. HEENT: Eyes: No visual loss, blurred vision, double vision or yellow sclerae. Ears, Nose, Throat: No hearing loss, sneezing, congestion, runny nose or sore throat. SKIN: No rash or itching, lesions, wounds. CARDIOVASCULAR: No chest pain, chest pressure or chest discomfort, palpitations, edema, orthopnea, syncopal events. RESPIRATORY: No shortness of breath, cough or sputum, wheezing, hemoptysis. GASTROINTESTINAL: + anorexia, nausea, vomiting, abdominal discomfort. No diarrhea, melena, BRBPR. GENITOURINARY: No dysuria, frequency, urgency or retention. NEUROLOGICAL: No headache, dizziness, syncope, paralysis, ataxia, numbness or tingling in the extremities, focal weakness, change in bowel or bladder control, seizure. MUSCULOSKELETAL: + muscle, back pain, joint pain or stiffness. HEMATOLOGIC: No anemia, bleeding or bruising. LYMPHATICS: No enlarged nodes. No history of splenectomy. PSYCHIATRIC: + history of depression or anxiety. ENDOCRINOLOGIC: No reports of sweating, cold or heat intolerance. No polyuria or polydipsia. ALLERGIES: + history of asthma, rhinitis. Vital Signs Vital Signs Vital Signs: 11/21/22 17:04 Temperature 97.7 F L Temperature Source Temporal Pulse Rate 110 H Respiratory Rate 18 Blood Pressure 122/80 H Blood Pressure Mean 94 Pulse Ox 98 Weight Weight: 138 lb 14.259 oz Body Mass Index (BMI) 28.0 Physical Exam Narrative Physical Examination: General: Awake, alert, oriented x 3 and cooperative, laying in the ED bed, fatigued and ill-appearing, intermittently dry heaving during evaluation. Skin: Normal color, normal turgor, no icterus, no cyanosis. HEENT: AT/NC, EOMI, PERRLA, dry MM, no carotid bruits or JVD noted. Lungs: Mildly diminished, greater bases, appropriate effort, no rales, ronchi or wheezing. Heart: Tachycardic with regular rhythm; no gallop, rub audible. Abdomen: Soft, mild generalized discomfort but no rebound or guarding, ND, hyperactive BS, no HSM. Extremities: No cyanosis, clubbing, or edema. Neurological: Patient awake, alert, oriented as noted, cognitive function intact; pupils equally reactive to light and accommodation, cranial nerves II- XII grossly normal, moving all 4 extremities, no focal deficits, strength mod erately to severely global decrease secondary to acute presentation. Psychiatric: Affect appears fatigued, ill-appearing, no acute evidence of depressive or anxiety feelings but does have underlying history. Results Lab / Micro Data Result Diagrams: 11/21/22 17:35 11/21/22 17:35 Labs: Laboratory Results - last 24 hr 11/21/22 17:11: POC Glucose 431 H 11/21/22 17:35: WBC 21.0 H, RBC 5.38, Hgb 15.2 H, Hct 46.6, MCV 86.6, MCH 28.3, MCHC 32.6, RDW Std Deviation 39.8, RDW Coeff of Marilynn 12.8, Plt Count 440, MPV 9 .4, Immature Gran % (Auto) 0.600, Neut % (Auto) 95.2 H, Lymph % (Auto) 2.9 L, [place] % (Auto) 1.0, Eos % (Auto) 0.0, Baso % (Auto) 0.3, Absolute Neuts (auto) 20.0 H, Absolute Lymphs (auto) 0.61 L, Nucleated RBC % 0, Differential Comment SCANNED 11/21/22 17:35: Sodium 137, Potassium 4.0, Chloride 98, Carbon Dioxide 15.0 L, Anion Gap 24 H, BUN 20 H, Creatinine 1.12 H, Estim Creat Clear Calc 77.03, Est GFR (MDRD) Af Amer 77, Est GFR (MDRD) Non-Af 63, BUN/Creatinine Ratio 17.9, Gluc ose 452 H*, Calcium 10.2 H, Total Bilirubin 0.80, AST 14 L, ALT 24, Alkaline Phosphatase 110, Total Protein 9.3 H, Albumin 5.0, Globulin 4.3 H, Albumin/Globulin Ratio 1.2, Lipase 10 L 11/21/22 17:35: Lactic Acid 3.4 H* 11/21/22 17:35: Acetone Level MODERATE H Assessment & Plan Assessment/Plan (1) DKA (diabetic ketoacidoses): PLAN: Plan The patient is a 22 y/o F w/ PMHx: Anxiety and Depression, Asthma with allergic rhinitis, IDDM with insulin pump diagnosed at age 9 who presents to the [facility] ED onb 11/21/22 with history of onset nausea, emesis, generalized abdominal discomfor t starting at ~ 3 am on day of presentation with reported younger sister with recent illness but no specific GI component with onset hyperglycemia on her monitor with persistent nausea and intractable emesis prompting eventual ED evaluation. #1. DKA w/ Diabetes mellitus type I with associated lactic acidosis and leukocytosis suspected reactive, dehydration associated with potential recent Acute Viral Syndrome given history, ill contacts: Patient in the ED administered 1 L normal saline bolus and initiated on insulin drip. Will admit to the ICU, continue on insulin drip, check serial K+, glucose w/ IVF changes pending these levels, serial chemistry, obtain mag, phos daily w/ repletion as needed, transition to home insulin pump SC regimen when gap closed with adjustments as needed, hemoglobin A1c requested, nutrition consultation. Encouraged diet and insulin regimen compliance. #2. Acute kidney injury: Secondary to acute presentation #1. Admission BUN/Cr 20/1.1, prior baseline creatinine noted to be primarily 0.5-0.6 over the last 07/23/2022 0.51, will continue to aggressively hydrate, hold nephrotoxic medications and repeat BMP serially given #1. #3. Anxiety and depression: Per current list patient is only on hydroxyzine low-dose nightly, will continue. #4. Chronic asthma with allergic rhinitis: Not on any chronic inhaler, will have as needed albuterol, continue patient home fluticasone regimen, encourage head of bed and I-S. #5. Chart reported Hx Cannabis usage: Will obtain UDS as certainly could contribute to GI presentation. #6. DVT prophylaxis: Lovenox. #7. CODE STATUS: Full code. Admission Evaluation Time spent evaluating chart, patient history, patient evaluation, care planning and discussion with specialists: 60 minutes. Charges/Coding Visit Charges Inpatient E&M: 42654 Init Hosp L2
[2022-11-21 20:22] LABS: Magnesium 2.1 mg/dL (1.6-2.6); Phosphorus 5.7 mg/dL (2.5-4.9)
[2022-11-21 20:46] LABS: Bedside Glucose 458 mg/dL (74-106)
[2022-11-21] MEDS: proCHLORPERazine 10 MG/2 ML Vial 5 MG IV (20:55)
[2022-11-21] MEDS: 0.9% Normal Saline 1,000 ML 999 ML IV (20:56)
[2022-11-21] MEDS: Famotidine 200 MG/20 ML MDV 20 MG in 0.9% Normal Saline (Pres. free 8 ML 300 MG IV (21:38)
[2022-11-21] MEDS: oxyCODONE 5 MG Tablet PO (21:39)
[2022-11-21] MEDS: hydrOXYzine PAM 25 MG Capsule PO (21:39)
[2022-11-21 21:40] LABS: Bedside Glucose 357 mg/dL (74-106)
[2022-11-21 21:41] LABS: Reflex Lactate? Y
[2022-11-21 22:46] LABS: Bedside Glucose 321 mg/dL (74-106)
[2022-11-21] MEDS: 0.9% Normal Saline 1,000 ML 150 ML IV (23:04)
[2022-11-22] VITALS (25 sets, daily range): BP systolic 105–149; BP diastolic 54–98; PULSE 86–121; RESP 14–27; TEMP 36.1–37.7; O2SAT 96–100; BMI 25.5
[2022-11-22] MEDS: Dext 5%-0.45% NS 1,000 ML 150 ML IV (00:45)
[2022-11-22 01:17] LABS: Lactic Acid 1.4 mmol/L (0.4-1.9)
[2022-11-22 02:11] LABS: Bedside Glucose 226 mg/dL (74-106)
[2022-11-22 02:11] LABS: Bedside Glucose 299 mg/dL (74-106)
[2022-11-22 02:46] LABS: Anion Gap 19 (5-15); BUN 20 mg/dL (7-18); BUN/Creat Ratio 22.8 RATIO (10-20); Calcium,Total 9.3 mg/dL (8.5-10.1); Chloride 108 mmol/L (98-107); Creatinine, Serum 0.88 mg/dL (0.55-1.02); EST Glomerular Filtration Rate 84 mL/min (>60); Est Glom Filt Rate - Afr Amer 101 mL/min (>60); Estimated Creatinine Clearance 98.04 ml/min; Glucose 249 mg/dL (74-106); Potassium 3.4 mmol/L (3.5-5.1); Sodium Level 143 mmol/L (136-145)
[2022-11-22] MEDS: Potassium Chloride 10mEq/100mL 10 MEQ/100 ML IV.SOLN. 100 MEQ IV BOLUS ×8 (03:44→14:44)
[2022-11-22] MEDS: KCL 20MEQ in D5.45NS 20 MEQ/1,000 ML IV.SOLN. 150 MEQ IV (03:44)
[2022-11-22 03:49] LABS: Internal QC Validated? YES +Cl - CLEAR BKGD
[2022-11-22 03:50] LABS: Pregnancy, Urine Negative Negative
[2022-11-22] MEDS: 0.9% Saline Lock 10 ML Syringe IV (03:59)
[2022-11-22 04:35] LABS: Anion Gap 14 (5-15); BUN 19 mg/dL (7-18); BUN/Creat Ratio 20.5 RATIO (10-20); Calcium,Total 9.1 mg/dL (8.5-10.1); Chloride 109 mmol/L (98-107); Creatinine, Serum 0.93 mg/dL (0.55-1.02); EST Glomerular Filtration Rate 79 mL/min (>60); Est Glom Filt Rate - Afr Amer 95 mL/min (>60); Estimated Creatinine Clearance 92.77 ml/min; Glucose 258 mg/dL (74-106); Potassium 3.1 mmol/L (3.5-5.1); Sodium Level 143 mmol/L (136-145)
[2022-11-22 05:20] LABS: White Blood Cells 0 SEEN /hpf (0-5)
[2022-11-22 05:28] LABS: Absolute Lymphocyte Count 0.95 X10^3/uL (0.83-4.51); Absolute Neutrophil Count 12.6 X10^3/uL (2.0-7.7); Basophil# 0.02 X10^3/uL; Basophil% 0.1 % (0-1); Hematocrit 37.4 % (37-47); Hemoglobin 12.7 g/dL (12.0-15.0); Lymphocyte # 0.95 X10^3/ul (0.83-4.51); Lymphocyte % 6.7 % (19-41); Mean Corpuscular Hgb 28.1 pg (27.0-32.0); Mean Corpuscular Volume 82.7 fL (81-99); Mean Platelet Vol. 8.8 fl (6.2-12.0); Monocyte# 0.53 X10^3/uL; Monocyte% 3.7 % (0-10); NRBC Flagged by Analyzer 0 % (0-5); Neutrophil # 12.61 X10^3/uL (2.7-7.7); Neutrophil % 89.1 % (47-70); Platelet Count 425 K/mm3 (150-450); RBC Distribution Width CV 12.9 % (11.6-14.6); RBC Distribution Width SD 38.5 fl (35.1-43.9); Red Blood Count 4.52 M/mm3 (4.2-5.4); White Blood Count 14.2 K/mm3 (4.4-11.0)
[2022-11-22 05:34] LABS: Color, Urine Yellow (Yellow); Glucose, Dipstick 1000 mg/dl (Normal); Leukocyte Esterase-Dipstick 25 /ul (Negative); Nitrite-Dipstick Positive (Negative); Occult Blood-Urine 25 /ul (Negative); Protein-Dipstick 100 mg/dl (Negative); Urine Bilirubin Dipstick Negative (Negative); Urine Clarity Clear (Clear); Urine Urobilinogen Normal (Normal)
[2022-11-22 05:50] LABS: Amphetamine Urine VISTA NEGATIVE (<1000 ng/mL); Barbiturate Urine VISTA NEGATIVE (< 200 ng/mL); Benzodiazepine Urine VISTA NEGATIVE (< 200 ng/mL); Cocaine Urine VISTA NEGATIVE (< 300 ng/mL); Ecstacy Urine VISTA NEGATIVE (< 500 ng/mL); Methadone Urine VISTA NEGATIVE (< 300 ng/mL); PCP Urine VISTA NEGATIVE (< 25 ng/mL); THC Urine VISTA POSITIVE (< 50 ng/mL); Vista UDS pH Range 6
[2022-11-22 05:54] LABS: Procalcitonin 0.06 ng/mL (0.00-0.09)
[2022-11-22 06:01] LABS: Ketone-Dipstick 150 mg/dl (Negative)
[2022-11-22 06:23] LABS: Bacteria RARE /hpf (None Seen); Mucous, Urine 1+ /hpf (<or=2+); Red Blood Cells-Urine 0-5 SEEN /hpf (0-5); Squamous Epithelial Cells - UA 0-5 SEEN /hpf (5-10)
[2022-11-22 06:41] LABS: Bedside Glucose 175 mg/dL (74-106)
[2022-11-22 06:41] LABS: Bedside Glucose 251 mg/dL (74-106)
[2022-11-22 06:41] LABS: Bedside Glucose 238 mg/dL (74-106)
[2022-11-22 06:41] LABS: Bedside Glucose 242 mg/dL (74-106)
[2022-11-22 06:41] LABS: Bedside Glucose 121 mg/dL (74-106)
--- NOTE | 2022-11-22 07:20 | PN.HOSP_ITS ---
Reason for Visit Reason for Visit: Diagnoses Type 2 diabetes mellitus with ketoacidosis without coma (11/21/22) Subjective Subjective Patient is a 22-year-old lady with history of diabetes mellitus type 1 presented with intractable nausea vomiting diagnosed with DKA admitted to the intensive care unit where patient is currently being managed Objective Data Objective Data Vital Signs: Vital Signs Temp Pulse Resp BP Pulse Ox O2 Del Method 99.3 F H 100 21 H 118/64 99 Room Air 11/22/22 07:00 11/22/22 07:00 11/22/22 07:00 11/22/22 07:00 11/22/22 07:00 11/22/22 07:00 Oxygen Delivery Method Room Air Weight: 57.4 kg Body Mass Index (BMI) 25.5 Intake & Output: Intake and Output for Last 24 Hours 11/20/22 11/21/22 11/22/22 23:59 23:59 23:59 Intake Total 2022.94 / 2022.94 921.23 / 921.23 Output Total 400 / 400 0 / 0 Balance 1622.94 / 1622.94 921.23 / 921.23 Lab / Micro Data Result Diagrams: 11/22/22 05:10 11/22/22 04:00 Labs: Laboratory Results - last 24 hr 11/21/22 03:40: Urine Color Yellow, Urine Clarity Clear, Urine pH 6.0, Ur Speci fic Deaver 1.020, Urine Protein 100 H, Urine Glucose (UA) 1000 H, Urine Ketones 150 A*, Urine Occult Blood 25 H, Urine Nitrite Positive H, Urine Bilirubin Negative, Urine Urobilinogen Normal, Ur Leukocyte Esterase 25 H, Urine RBC 0-5 SEEN, Urine WBC 0 SEEN, Ur Squamous Epith Cells 0-5 SEEN, Urine Bacteria RARE, Urine Mucus 1+ 11/21/22 03:40: Urine Opiates Screen NEGATIVE, Urine Methadone Screen NEGATIVE, Ur Barbiturates Screen NEGATIVE, Ur Phencyclidine Scrn NEGATIVE, Ur Amphetamines Screen NEGATIVE, MDMA (Ecstasy) Screen NEGATIVE, U Benzodiazepines Scrn NEGATIVE, Urine Cocaine Screen NEGATIVE, U Cannabinoids Screen POSITIVE H, Ur Drug Screen Comment 11/21/22 11:35: Procalcitonin 0.06 11/21/22 17:11: POC Glucose 431 H 11/21/22 17:35: WBC 21.0 H, RBC 5.38, Hgb 15.2 H, Hct 46.6, MCV 86.6, MCH 28.3, MCHC 32.6, RDW Std Deviation 39.8, RDW Coeff of Marilynn 12.8, Plt Count 440, MPV 9.4, Immature Gran % (Auto) 0.600, Neut % (Auto) 95.2 H, Lymph % (Auto) 2.9 L, [place] % (Auto) 1.0, Eos % (Auto) 0.0, Baso % (Auto) 0.3, Absolute Neuts (auto) 20.0 H, Absolute Lymphs (auto) 0.61 L, Nucleated RBC % 0, Differential Comment SCANNED 11/21/22 17:35: Sodium 137, Potassium 4.0, Chloride 98, Carbon Dioxide 15.0 L, Anion Gap 24 H, BUN 20 H, Creatinine 1.12 H, Estim Creat Clear Calc 77.03, Est GFR (MDRD) Af Amer 77, Est GFR (MDRD) Non-Af 63, BUN/Creatinine Ratio 17.9, Glucose 452 H*, Calcium 10.2 H, Total Bilirubin 0.80, AST 14 L, ALT 24, Alkaline Phosphatase 110, Total Protein 9.3 H, Albumin 5.0, Globulin 4.3 H, Albumin/Globulin Ratio 1.2, Lipase 10 L 11/21/22 17:35: Lactic Acid 3.4 H* 11/21/22 17:35: Acetone Level MODERATE H 11/21/22 17:35: Phosphorus 5.7 H, Magnesium 2.1 11/21/22 20:15: POC Glucose 458 H* 11/21/22 21:21: POC Glucose 357 H 11/21/22 22:25: POC Glucose 321 H 11/21/22 23:06: POC Glucose 299 H 11/22/22 00:33: POC Glucose 226 H 11/22/22 00:40: Sodium 143, Potassium 3.4 L, Chloride 108 H, Carbon Dioxide 16.0 L, Anion Gap 19 H, BUN 20 H, Creatinine 0.88, Estim Creat Clear Calc 98.04, Est GFR (MDRD) Af Amer 101, Est GFR (MDRD) Non-Af 84, BUN/Creatinine Ratio 22.8 H, Glucose 249 H, Calcium 9.3 11/22/22 00:40: Lactic Acid 1.4 11/22/22 00:40: Phosphorus 3.0, Magnesium 2.0 11/22/22 01:53: POC Glucose 242 H 11/22/22 02:56: POC Glucose 238 H 11/22/22 03:40: Urine Test Negative 11/22/22 04:00: Sodium 143, Potassium 3.1 L, Chloride 109 H, Carbon Dioxide 20.0 L, Anion Gap 14, BUN 19 H, Creatinine 0.93, Estim Creat Clear Calc 92.77, Est GFR (MDRD) Af Amer 95, Est GFR (MDRD) Non-Af 79, BUN/Creatinine Ratio 20.5 H, Glucose 258 H, Calcium 9.1 11/22/22 04:03: POC Glucose 251 H 11/22/22 05:10: WBC 14.2 H, RBC 4.52, Hgb 12.7, Hct 37.4, MCV 82.7, MCH 28.1, MCHC 34.0, RDW Std Deviation 38.5, RDW Coeff of Marilynn 12.9, Plt Count 425, MPV 8.8, Immature Gran % (Auto) 0.400, Neut % (Auto) 89.1 H, Lymph % (Auto) 6.7 L, [place] % (Auto) 3.7, Eos % (Auto) 0.0, Baso % (Auto) 0.1, Absolute Neuts (auto) 12.6 H, Absolute Lymphs (auto) 0.95, Nucleated RBC % 0 11/22/22 05:10: POC Glucose 175 H 11/22/22 06:21: POC Glucose 121 H Physical Exam Narrative GENERAL: cooperative HEENT: Atraumatic; normocephalic EYES; Anicteric, Normal Conjunctiva NECK; supple, normal thyroid, RESPIRATORY: Diminished to auscultation CARDIOVASCULAR: Regular S1 S2, GI: soft, normoactive bowel sounds, : No Renal angle tenderness; EXTREMITIES: No edema, no clubbing, MUSCULOSKELETAL: no muscle wasting NEURO: Awake; no lateralizing signs. SKIN: No Rash PSYCH; Flat affect Assessment & Plan Assessment/Plan (1) DKA (diabetic ketoacidoses): PLAN: Plan Patient is a 22-year-old lady with history of diabetes mellitus type 1 presented with intractable nausea vomiting diagnosed with DKA admitted to the intensive care unit where patient is currently being 1. Diabetic ketoacidosis ? Patient has been admitted to the intensive care unit management IV fluids, systemic insulin, serial monitoring of electrolytes and correction of electrolyte abnormalities. Patient progressed being monitored with every 4 BMP 2. Acute kidney injury ? Patient baseline creatinine 0.48 from BMP drawn on 11/07/2021. Creatinine on admission was 1.12. Patient has been started on IV fluids serial monitoring of electrolytes ordered 3. Depression with anxiety ? Patient is on as needed hydroxyzine 4. Mild intermittent asthma ? Aerosol treatments as needed 5. Occasional use of marijuana ? Cessation encouraged 6. DVT prophylaxis - On enoxaparin Time spent in the patient's overall evaluation,decision-making process, review of diagnostic data, adjustment of management, discussion with other providers, nursing nursing and ancillary staff involved in patient's care documentation, 55 Minutes Charges/Coding Visit Charges Inpatient E&M: 18863 [facility] Hosp L3
[2022-11-22 08:21] LABS: Hemoglobin A1c 9.9 % (3.8-5.6)
[2022-11-22 08:40] LABS: Bedside Glucose 114 mg/dL (74-106)
[2022-11-22 08:43] LABS: Anion Gap 10 (5-15); BUN 19 mg/dL (7-18); BUN/Creat Ratio 21.1 RATIO (10-20); Calcium,Total 9.1 mg/dL (8.5-10.1); Chloride 112 mmol/L (98-107); EST Glomerular Filtration Rate 81 mL/min (>60); Est Glom Filt Rate - Afr Amer 98 mL/min (>60); Estimated Creatinine Clearance 87.34 ml/min; Glucose 124 mg/dL (74-106); Potassium 3.8 mmol/L (3.5-5.1); Sodium Level 143 mmol/L (136-145)
[2022-11-22] MEDS: Ondansetron 4 MG/2 ML Vial IV ×2 (09:25→17:26)
[2022-11-22] MEDS: Famotidine 200 MG/20 ML MDV 20 MG in 0.9% Normal Saline (Pres. free 8 ML 300 MG IV (09:25)
[2022-11-22 09:35] LABS: Bedside Glucose 133 mg/dL (74-106)
[2022-11-22] MEDS: Insulin Glargine-YFGN 100 UNIT/ML Pen 15 UNIT SC ×2 (10:34→21:25)
[2022-11-22 11:01] LABS: Bedside Glucose 161 mg/dL (74-106)
--- NOTE | 2022-11-22 11:10 | CASEMGMT ---
SARA NICOLE Face to Face with patient for initial transition planning/care coordination assessment. RN CM introduced self and role at [facility]. Patient lying in bed, alert and oriented. Patient willing to participate in assessment and is able to answer all questions appropriately. Care providers, pharmacy, and demographics verified. Patient wishes to discharge home, denies need for home health at this time. Patient states she has no further needs or concerns at this time. CM to follow for discharge planning needs that may arise. PCP: Mckinley Specialists: , sap data analyst Preferred Pharmacy: [facility] Insurance: [employer] Prescription Benefit: yes Living Will/HPOA: yes, Lee Forrester LNOK: mother Living Arrangements: Patient lives with mother in a mobile home with 4 steps to enter. Patient states she is independent at home. Transportation: self, mother DME/HHC: Patient has insulin, glucometer with supplies at home. Patient states she needs pen needles and request 0.5 pen needles. Patient states she is working with insurance for Dexcom glucometer. Patient states that her insulin pump is working and will follow-up with sap data analyst Disposition Plan: Patient to discharge home with family support and follow-up plans in place. Jessica MEAD, RN, CM
[2022-11-22] MEDS: KCL 20MEQ in 0.45%NS 20 MEQ/1,000 ML IV.SOLN. 75 MEQ IV ×2 (11:34→23:45)
[2022-11-22] MEDS: proCHLORPERazine 10 MG/2 ML Vial 5 MG IV (11:55)
[2022-11-22] MEDS: Albuterol 2.5 MG/3 ML VIAL.NEB. INHALATION (12:03)
[2022-11-22 12:20] LABS: Bedside Glucose 121 mg/dL (74-106)
[2022-11-22] MEDS: levoFLOXacin IV 500 MG/100 ML BAG 100 MG IV (13:28)
--- NOTE | 2022-11-22 15:50 | CASEMGMT ---
SARA NICOLE Face to Face with patient for initial transition planning/care coordination assessment. RN CM introduced self and role at [facility]. Patient lying in bed, alert and oriented. Patient willing to participate in assessment and is able to answer all questions appropriately. Care providers, pharmacy, and demographics verified. Patient wishes to discharge home, denies need for home health at this time. Patient states she has no further needs or concerns at this time. CM to follow for discharge planning needs that may arise. PCP: Mckinley Specialists: , alcohol law enforcement agent Preferred Pharmacy: [facility] Insurance: [employer] Prescription Benefit: yes Living Will/HPOA: yes, Lee Forrester LNOK: mother Living Arrangements: Patient lives with mother in a mobile home with 4 steps to enter. Patient states she is independent at home. Transportation: self, mother DME/HHC: Patient has insulin, glucometer with supplies at home. Patient states she needs pen needles and request 0.5 pen needles. Patient states she is working with insurance for Dexcom glucometer. Patient states that her insulin pump is working and will follow-up with alcohol law enforcement agent Disposition Plan: Patient to discharge home with family support and follow-up plans in place. Jessica MEAD, RN, CM
[2022-11-22] MEDS: Insulin Lispro 100 UNIT/ML INSULN.PEN SC ×3 (17:15→21:25)
[2022-11-22 17:26] LABS: Bedside Glucose 250 mg/dL (74-106)
[2022-11-22] MEDS: hydrOXYzine PAM 25 MG Capsule PO (21:20)
[2022-11-22] MEDS: Acetaminophen 325 MG Tablet 650 MG PO (21:42)
[2022-11-22] MEDS: oxyCODONE 5 MG Tablet PO (21:43)
[2022-11-22 22:00] LABS: Bedside Glucose 193 mg/dL (74-106)
[2022-11-22] MEDS: Miconazole Nitrate Cream 1 APPLIC TOPICAL (22:40)
[2022-11-22] MEDS: FLUCONAZOLE 150 MG TABLET PO (22:40)
[2022-11-23] VITALS (9 sets, daily range): BP systolic 94–121; BP diastolic 54–77; PULSE 75–87; RESP 14–23; TEMP 36.6–37.2; O2SAT 98–99; BMI 25.6
[2022-11-23 03:47] LABS: Absolute Lymphocyte Count 2.32 X10^3/uL (0.83-4.51); Absolute Neutrophil Count 9.8 X10^3/uL (2.0-7.7); Basophil# 0.05 X10^3/uL; Basophil% 0.4 % (0-1); Eosinophil# 0.02 X10^3/uL; Eosinophils% 0.2 % (0-5); Hematocrit 35.7 % (37-47); Hemoglobin 11.9 g/dL (12.0-15.0); Lymphocyte # 2.32 X10^3/ul (0.83-4.51); Mean Corp Hgb Conc 33.3 g/dL (32-36); Mean Corpuscular Hgb 28.1 pg (27.0-32.0); Mean Corpuscular Volume 84.4 fL (81-99); Mean Platelet Vol. 9.3 fl (6.2-12.0); Monocyte% 4.7 % (0-10); NRBC Flagged by Analyzer 0 % (0-5); Neutrophil # 9.83 X10^3/uL (2.7-7.7); Neutrophil % 76.4 % (47-70); POSITIVE COUNT YES; RBC Distribution Width CV 12.7 % (11.6-14.6); RBC Distribution Width SD 38.9 fl (35.1-43.9); Red Blood Count 4.23 M/mm3 (4.2-5.4); White Blood Count 12.9 K/mm3 (4.4-11.0)
[2022-11-23 03:58] LABS: Anion Gap 9 (5-15); BUN 12 mg/dL (7-18); BUN/Creat Ratio 18.2 RATIO (10-20); Calcium,Total 8.7 mg/dL (8.5-10.1); Chloride 106 mmol/L (98-107); Creatinine, Serum 0.66 mg/dL (0.55-1.02); EST Glomerular Filtration Rate 116 mL/min (>60); Est Glom Filt Rate - Afr Amer 141 mL/min (>60); Glucose 186 mg/dL (74-106); Magnesium 2.2 mg/dL (1.6-2.6); Phosphorus 2.4 mg/dL (2.5-4.9); Potassium 3.6 mmol/L (3.5-5.1); Sodium Level 138 mmol/L (136-145)
[2022-11-23 04:11] LABS: Platelet Morphology CLUMPED
[2022-11-23 04:12] LABS: Bedside Glucose 160 mg/dL (74-106)
[2022-11-23 04:12] LABS: Platelet Estimate ADEQUATE (ADEQ)
--- NOTE | 2022-11-23 06:53 | PCM.PN.HOSP ---
Reason for Visit Reason for Visit: Diagnoses Type 2 diabetes mellitus with ketoacidosis without coma (11/21/22) Subjective Subjective Patient was started on Rocephin, urine culture sent for suspected cystitis. She was weaned off insulin drip the day prior transition to long-acting insulin Objective Data Objective Data Vital Signs: Vital Signs Temp Pulse Resp BP Pulse Ox O2 Del Method 98 F 77 14 111/70 99 Room Air 11/23/22 04:00 11/23/22 06:00 11/23/22 06:00 11/23/22 06:00 11/23/22 06:00 11/23/22 06:00 Oxygen Delivery Method Room Air Weight: 57.5 kg Body Mass Index (BMI) 25.6 Intake & Output: Intake and Output for Last 24 Hours 11/21/22 11/22/22 11/23/22 23:59 23:59 23:59 Intake Total 2022.94 / 2022.94 4231.23 / 4231.23 475 / 475 Output Total 400 / 400 0 / 0 Balance 1622.94 / 1622.94 4231.23 / 4231.23 475 / 475 Lab / Micro Data Result Diagrams: 11/23/22 03:35 11/23/22 03:35 Labs: Laboratory Results - last 24 hr 11/22/22 05:10: Hemoglobin A1c 9.9 H 11/22/22 07:26: POC Glucose 114 H 11/22/22 08:20: Sodium 143, Potassium 3.8, Chloride 112 H, Carbon Dioxide 21.0, Anion Gap 10, BUN 19 H, Creatinine 0.90, Estim Creat Clear Calc 87.34, Est GFR (MDRD) Af Amer 98, Est GFR (MDRD) Non-Af 81, BUN/Creatinine Ratio 21.1 H, Glucose 124 H, Calcium 9.1 11/22/22 09:16: POC Glucose 133 H 11/22/22 10:31: POC Glucose 161 H 11/22/22 11:38: POC Glucose 121 H 11/22/22 17:06: POC Glucose 250 H 11/22/22 21:23: POC Glucose 193 H 11/23/22 03:35: WBC 12.9 H, RBC 4.23, Hgb 11.9 L, Hct 35.7 L, MCV 84.4, MCH 28.1, MCHC 33.3, RDW Std Deviation 38.9, RDW Coeff of Marilynn 12.7, Plt Count TNP, MPV 9.3, Immature Gran % (Auto) 0.300, Neut % (Auto) 76.4 H, Lymph % (Auto) 18.0 L, [place] % (Auto) 4.7, Eos % (Auto) 0.2, Baso % (Auto) 0.4, Absolute Neuts (auto) 9.8 H, Absolute Lymphs (auto) 2.32, Nucleated RBC % 0, Platelet Estimate ADEQUATE, Plt Morphology Comment CLUMPED 11/23/22 03:35: Sodium 138, Potassium 3.6, Chloride 106, Carbon Dioxide 23.0, Anion Gap 9, BUN 12, Creatinine 0.66, Estim Creat Clear Calc 119.10, Est GFR (MDRD) Af Amer 141, Est GFR (MDRD) Non-Af 116, BUN/Creatinine Ratio 18.2, Glucose 186 H, Calcium 8.7, Phosphorus 2.4 L, Magnesium 2.2 11/23/22 03:50: POC Glucose 160 H Physical Exam Narrative GENERAL: cooperative HEENT: Atraumatic; normocephalic EYES; Anicteric, Normal Conjunctiva NECK; supple, normal thyroid, RESPIRATORY: Diminished to auscultation CARDIOVASCULAR: Regular S1 S2, GI: soft, normoactive bowel sounds, : No Renal angle tenderness; EXTREMITIES: No edema, no clubbing, MUSCULOSKELETAL: no muscle wasting NEURO: Awake; no lateralizing signs. SKIN: No Rash PSYCH; Flat affect Assessment & Plan Assessment/Plan (1) DKA (diabetic ketoacidoses): PLAN: Plan Patient is a 22-year-old lady with history of diabetes mellitus type 1 presented with intractable nausea vomiting diagnosed with DKA admitted to the intensive care unit where patient is currently being 1. Diabetic ketoacidosis ? Patient has been admitted to the intensive care unit management IV fluids, systemic insulin, serial monitoring of electrolytes and correction of electrolyte abnormalities. Patient progressed being monitored with every 4 BMP 2. Acute kidney injury ? Patient baseline creatinine 0.48 from BMP drawn on 11/07/2021. Creatinine on admission was 1.12. Patient has been started on IV fluids serial monitoring of electrolytes ordered 3. Depression with anxiety ? Patient is on as needed hydroxyzine 4. Mild intermittent asthma ? Aerosol treatments as needed 5. Occasional use of marijuana ? Cessation encouraged 6. DVT prophylaxis - On enoxaparin 7. Suspected acute cystitis ? Patient started on Rocephin urine culture sent Time spent in the patient's overall evaluation,decision-making process, review of diagnostic data, adjustment of management, discussion with other providers, nursing nursing and ancillary staff involved in patient's care documentation, 35 Minutes Charges/Coding Visit Charges Inpatient E&M: 22443 Subs Hosp L2
[2022-11-23 08:01] LABS: Bedside Glucose 101 mg/dL (74-106)
[2022-11-23] MEDS: Insulin Lispro 100 UNIT/ML INSULN.PEN SC ×3 (08:37→11:26)
--- NOTE | 2022-11-23 08:53 | DS.PCM_ITS ---
Providers Date of Admission: 11/21/22 Date of Discharge: 11/23/22 Primary Care Physician: Dr. Erika Sen MD Reason For Visit: DKA Diagnosis Discharge Diagnosis (1) DKA (diabetic ketoacidoses): Status: Acute Code(s): E11.10 - Type 2 diabetes mellitus with ketoacidosis without coma Plan Patient is a 22-year-old lady with history of diabetes mellitus type 1 presented with intractable nausea vomiting diagnosed with DKA admitted to the intensive care unit where patient is currently being 1. Diabetic ketoacidosis ? Patient has been admitted to the intensive care unit management IV fluids, systemic insulin, serial monitoring of electrolytes and correction of electrolyte abnormalities. Patient progressed being monitored with every 4 BMP ?DKA resolved patient started on long-acting insulin with scheduled short acting insulin. Prescription was written on discharge for insulin pending evaluation by patient's engine test cell technician 2. Acute kidney injury ? Patient baseline creatinine 0.48 from BMP drawn on 11/07/2021. Creatinine on admission was 1.12. Patient has been started on IV fluids serial monitoring of electrolytes ordered 3. Depression with anxiety ? Patient is on as needed hydroxyzine 4. Mild intermittent asthma ? Aerosol treatments as needed 5. Occasional use of marijuana ? Cessation encouraged 6. DVT prophylaxis - On enoxaparin 7. Suspected acute cystitis ? Patient started on Rocephin urine culture sent Time spent in the patient's overall evaluation,decision-making process, review of diagnostic data, adjustment of management, discussion with other providers, nursing nursing and ancillary staff involved in patient's care documentation, 35 Minutes Medications at Discharge Home Medications albuterol sulfate 90 mcg/actuation aerosol inhaler (Ventolin HFA) 2 puff inhalation Q4H PRN PRN Sob &/Or Wheezing 08/25/18 Ketone Urine Test (acetone (urine) test) #50 ea 11/05/21 hydroxyzine pamoate 25 mg capsule (Vistaril) 25 mg PO QHS #30 caps 02/07/22 insulin aspart U-100 100 unit/mL subcutaneous solution 100 unit continuous subcutaneous infusion .continuous #90 mL 09/26/22 potassium citrate 99 mg capsule 99 mg PO DAILY 09/26/22 fluticasone propionate 50 mcg/actuation nasal spray,suspension intranasal 11/21/22 FreeStyle Daniela 14 Day Sensor (flash glucose sensor) #2 ea 11/23/22 blood-glucose sensor (Dexcom G6 Sensor device) #10 ea 11/23/22 blood-glucose transmitter (Dexcom G6 Transmitter device) #1 ea 11/23/22 ciprofloxacin HCl 500 mg tablet (Cipro) 500 mg PO BID #14 tabs 11/23/22 insulin aspart U-100 100 unit/mL (3 mL) subcutaneous pen (Novolog FlexPen U-100 Insulin aspart) 5 unit (0.05 mL) subcut TID #15 mL 11/23/22 insulin glargine 100 unit/mL (3 mL) subcutaneous pen (Basaglar KwikPen U-100 Insulin) 15 unit (0.15 mL) subcut BID #15 mL 11/23/22 insulin pump cart,automated,BT (Omnipod 5 G6 Pods (Gen 5) subcutaneous cartridge) #10 ea 11/23/22 insulin pump cart,automated,BT (Omnipod 5 G6 Pods (Gen 5) subcutaneous cartridge) #45 ea 11/23/22 insulin pump cartridge,automated dose,BT with controller subcutaneous (Omnipod 5 G6 Intro Kit (Gen 5) subcutaneous cartridge with controller) #1 ea 11/23/22 pen needle, diabetic 32 gauge x 5/32 (BD Ultra-Fine Opal Pen Needle) #120 ea 11/23/22 Hospital Course Summary of Care Provided Minutes Spent on Discharge: 35 Physical Exam Narrative GENERAL: cooperative HEENT: Atraumatic; normocephalic EYES; Anicteric, Normal Conjunctiva NECK; supple, normal thyroid, RESPIRATORY: Diminished to auscultation CARDIOVASCULAR: Regular S1 S2, GI: soft, normoactive bowel sounds, : No Renal angle tenderness; EXTREMITIES: No edema, no clubbing, MUSCULOSKELETAL: no muscle wasting NEURO: Awake; no lateralizing signs. SKIN: No Rash PSYCH; Flat affect Weight / BMI Weight Weight: 57.5 kg Body Mass Index (BMI) 25.6 ABG / Lab / Microbiology Data Result Diagrams: 11/23/22 03:35 11/23/22 03:35 Laboratory: Laboratory Results - last 24 hr 11/22/22 09:16: POC Glucose 133 H 11/22/22 10:31: POC Glucose 161 H 11/22/22 11:38: POC Glucose 121 H 11/22/22 17:06: POC Glucose 250 H 11/22/22 21:23: POC Glucose 193 H 11/23/22 03:35: WBC 12.9 H, RBC 4.23, Hgb 11.9 L, Hct 35.7 L, MCV 84.4, MCH 28.1, MCHC 33.3, RDW Std Deviation 38.9, RDW Coeff of Marilynn 12.7, Plt Count TNP, MPV 9.3, Immature Gran % (Auto) 0.300, Neut % (Auto) 76.4 H, Lymph % (Auto) 18.0 L, [place] % (Auto) 4.7, Eos % (Auto) 0.2, Baso % (Auto) 0.4, Absolute Neuts (auto) 9.8 H, Absolute Lymphs (auto) 2.32, Nucleated RBC % 0, Platelet Estimate ADEQUATE, Plt Morphology Comment CLUMPED 11/23/22 03:35: Sodium 138, Potassium 3.6, Chloride 106, Carbon Dioxide 23.0, Anion Gap 9, BUN 12, Creatinine 0.66, Estim Creat Clear Calc 119.10, Est GFR (MDRD) Af Amer 141, Est GFR (MDRD) Non-Af 116, BUN/Creatinine Ratio 18.2, Glucose 186 H, Calcium 8.7, Phosphorus 2.4 L, Magnesium 2.2 11/23/22 03:50: POC Glucose 160 H 11/23/22 07:39: POC Glucose 101 D/C Instructions Discharge Diet: 1800 Calorie Control Diet Discharge Activity: Return to Normal Activity Call your doctor if you observe: Fever of 101 or Higher, Shortness of breath, Fainting spells and Chest pain Meaningful Use Info Meaningful Use Diagnoses (Choose all that apply): None applicable Discharge Plan Admission Admit Date/Time: 11/21/22 19:16 Attending Provider: David Akhtar Primary Care Provider: Erika Sen Consulting Providers: Delia Navarro Discharge Orders/Prescriptions Prescriptions: New ciprofloxacin HCl [Cipro] 500 mg tablet 500 mg PO BID Qty: 14 0RF insulin glargine [Basaglar KwikPen U-100 Insulin] 100 unit/mL (3 mL) insulin pen 15 unit subcut BID Qty: 15 0RF insulin aspart U-100 [Novolog FlexPen U-100 Insulin] 100 unit/mL (3 mL) insulin pen 5 unit subcut TID Qty: 15 0RF Continued hydroxyzine pamoate [Vistaril] 25 mg capsule 25 mg PO QHS Qty: 30 6RF potassium citrate 99 mg capsule 99 mg PO DAILY insulin aspart U-100 100 unit/mL solution 100 unit continuous subcutaneous infusion .continuous Qty: 90 1RF albuterol sulfate [Ventolin HFA] 18 GM HFA aerosol inhaler 2 puff inhalation Q4H PRN PRN (Reason: Sob &/Or Wheezing) Label Comments: inhale 2 puffs by mouth every 4 hours if needed fluticasone propionate 50 mcg/actuation spray,suspension INTRANASAL Label Comments: USE 2 SPRAYS IN EACH NOSTRIL ONCE DAILY. RINSE MOUTH AFTER USE. (DME) Dexcom G6 Sensor Device See Rx Instructions .Route Qty: 10 5RF Rx Instructions: As directed (DME) Dexcom G6 Transmitter Device See Rx Instructions .Route Qty: 1 3RF Rx Instructions: As directed (DME) pen needle, diabetic [BD Ultra-Fine Opal Pen Needle] 32 gauge x 5/32 needle See Rx Instructions .ROUTE .MEDSUPPLY Qty: 120 5RF Rx Instructions: 4 times daily (DME) FreeStyle Daniela 14 Day Sensor Kit See Rx Instructions .ROUTE .MEDSUPPLY Qty: 2 3RF Rx Instructions: As directed (DME) Omnipod 5 G6 Pods (Gen 5) Cartridge See Rx Instructions .Route Qty: 10 5RF Rx Instructions: As directed (DME) Omnipod 5 G6 Pods (Gen 5) Cartridge See Rx Instructions .Route Qty: 45 1RF Rx Instructions: change every 48-72 hours (DME) Omnipod 5 G6 Intro Kit (Gen 5) Cartridge See Rx Instructions .Route Qty: 1 0RF Rx Instructions: As directed (DME) Ketone Urine Test Strip See Rx Instructions .ROUTE .MEDSUPPLY Qty: 50 1RF Rx Instructions: once/day Referrals / Follow Up: Erika Sen MD [Primary Care Provider] - In 1 Week Disposition Disposition (needs filled in before D/C Order can be placed): Home, Self Care Charges/Coding Visit Charges Inpatient E&M: 09198 Disch Hosp >30min
[2022-11-23] MEDS: levoFLOXacin IV 500 MG/100 ML BAG 100 MG IV (09:24)
--- NOTE | 2022-11-23 10:31 | CASEMGMT ---
Addendum entered by Bren Chery 11/23/22 11:48: PA completed for basaglar. Addendum entered by Bren Chery 11/23/22 11:30: Pharmacist was able to get correct insurance information. She trf'd the dexcom sensor to [facility] in [place]. There is a PA for basaglar. SARA NICOLE to complete. SARA NICOLE into pt room, she is aware that the sensor was sent to [place] and the rest of the meds and pen needles she can pickup driver at [facility] which closes at 1p. Pt states she has basaglar at home. She is aware the PA will be submitted and she can pickup driver at later time. Pt verbalizes understanding of all of the above. Addendum entered by Bren Chery 11/23/22 10:46: TC back from Lavell who states pt insurance terminated 09/17. SARA NICOLE into pt room, she states she has been getting meds within the last 3 weeks from [facility] in [place]. She states she did not know her insurance termed. She will call insurance, Lavell will call [facility] in [place] to see if they have another card on file. 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 Original Note: TC to pharmacy to verify that pt pen needles will fit her insulin, confirmed they will. Spoke with pharmacist Lavell who states pt insurance is not stating it is active. SARA NICOLE into pt room, pt provided card which is same as on file. She states she has not received any new card. Verified that pt needs the Dexcom sensors, she is aware [facility] does not have them. She uses [facility] in [place] but they are closed, she is open to going to [facility] in [place]. TC back to Lavell in pharmacy, she gave salcido huffman for meds. She states she will call [facility] to see if she can get a different number for pt insurance.
[2022-11-23] MEDS: Insulin Glargine-YFGN 100 UNIT/ML Pen 15 UNIT SC (11:27)
[2022-11-23 11:51] LABS: Bedside Glucose 217 mg/dL (74-106)
== END 2022-11-23 11:45 | disposition home or self-care (01) | DRG 420 ==
LOC: ED 17:32 → ICU 19:41
PROVIDERS: Nurse Practitioner; Admitting Provider Family Medicine; Emergency Provider Emergency Medicine; PCP Internal Medicine; Visit Provider Internal Medicine
DX: E10.10 Type 1 diabetes mellitus with ketoacidosis without coma (principal); N17.9 Acute kidney failure, unspecified; R11.2 Nausea with vomiting, unspecified; F12.90 Cannabis use, unspecified, uncomplicated; J45.20 Mild intermittent asthma, uncomplicated; F41.8 Other specified anxiety disorders; N30.00 Acute cystitis without hematuria
CPT/HCPCS: 80048; 80053; 80307; 81001; 81025; 82009; 82962; 83036; 83605; 83690; 83735; 84100; 84145; 85025; 87086; 87088; 94640; 94668; 97802; 99283; J7030; A4216; J2405; J3490; J7799

== ENCOUNTER 2022-12-23 23:45 | Inpatient (IN) | payer MEDICAID, SELFPAY ==
[2022-12-23 23:46] VITALS: BP 152/101; PULSE 157; RESP 34; TEMP 36.4; O2SAT 98; BMI 25.9
[2022-12-24] VITALS (27 sets, daily range): BP systolic 115–149; BP diastolic 63–98; PULSE 100–149; RESP 18–36; TEMP 36.2–36.8; O2SAT 96–100; BMI 25.4
--- NOTE | 2022-12-24 00:02 | EKG12_ITS ---
Test Reason : DYSRHYTHMIA Blood Pressure : / mmHG Vent. Rate : 146 BPM Atrial Rate : 146 BPM P-R Int : 124 ms QRS Dur : 070 ms QT Int : 298 ms P-R-T Axes : 070 079 048 degrees QTc Int : 464 ms Sinus tachycardia Right atrial enlargement Borderline ECG Confirmed by GREGORIA AGOSTO, RACHNA ([id number]), senior editor ARELY OMALLEY ([id number]) on 12/25/2022 8:57:57 AM Referred By: VINNIE Confirmed By:RACHNA KINNEY MD
[2022-12-24 00:27] LABS: Blood Gas Specimen Type VEN; VBG BASE EXCESS -24 mmol/L (-1.0-3.5); VBG Bicarbonate 6 mmol/L (22-26); VBG PO2 57 mmHg (25-40); VBG SO2 80 % (50-70); VBG TCO2 6 mmol/L (23-33); VBG pCO2 17.7 mmHg (41-51); VBG pH 7.12 (7.32-7.42)
[2022-12-24 00:29] LABS: Squamous Epithelial Cells - UA 0 SEEN /hpf (5-10); White Blood Cells 0 SEEN /hpf (0-5)
--- NOTE | 2022-12-24 00:31 | CPS ---
Critical VBG values, Dr. Canada aware.
[2022-12-24 00:38] LABS: Nitrite-Dipstick Positive (Negative); Protein-Dipstick 100 mg/dl (Negative); Specific Gravity, Urine 1.025 (1.002-1.030)
[2022-12-24 00:42] LABS: Bedside Glucose > 500 mg/dL (74-106)
[2022-12-24 00:45] LABS: Color, Urine Yellow (Yellow); Urine Clarity Clear (Clear)
[2022-12-24 00:46] LABS: Absolute Lymphocyte Count 0.73 X10^3/uL (0.83-4.51); Absolute Neutrophil Count 19.9 X10^3/uL (2.0-7.7); Basophil# 0.06 X10^3/uL; Basophil% 0.3 % (0-1); Hematocrit 48.4 % (37-47); Hemoglobin 15.6 g/dL (12.0-15.0); Lymphocyte # 0.73 X10^3/ul (0.83-4.51); Lymphocyte % 3.4 % (19-41); Mean Corp Hgb Conc 32.2 g/dL (32-36); Mean Corpuscular Hgb 27.8 pg (27.0-32.0); Mean Corpuscular Volume 86.1 fL (81-99); Mean Platelet Vol. 10.2 fl (6.2-12.0); Monocyte# 0.51 X10^3/uL; Monocyte% 2.4 % (0-10); NRBC Flagged by Analyzer 0 % (0-5); Neutrophil # 19.91 X10^3/uL (2.7-7.7); POSITIVE COUNT YES; RBC Distribution Width CV 13.4 % (11.6-14.6); RBC Distribution Width SD 40.8 fl (35.1-43.9); Red Blood Count 5.62 M/mm3 (4.2-5.4); White Blood Count 21.4 K/mm3 (4.4-11.0)
[2022-12-24 00:52] LABS: ALB/GLOB Ratio 1.1 RATIO (0.9-2.4); AST(SGOT) 12 U/L (15-37); Alanine Aminotransfer ALT/SGPT 18 U/L (13-56); Albumin, Serum 4.7 g/dL (3.2-5.0); Alkaline Phosphatase 130 U/L (45-117); Anion Gap 27 (5-15); BUN 14 mg/dL (7-18); BUN/Creat Ratio 9.8 RATIO (10-20); Chloride 97 mmol/L (98-107); Creatinine, Serum 1.43 mg/dL (0.55-1.02); EST Glomerular Filtration Rate 48 mL/min (>60); Est Glom Filt Rate - Afr Amer 58 mL/min (>60); Estimated Creatinine Clearance 55.74 ml/min; Globulin 4.3 g/dL (2.2-4.2); Glucose 595 mg/dL (74-106); Magnesium 2.3 mg/dL (1.6-2.6); Phosphorus 4.2 mg/dL (2.5-4.9); Potassium 4.3 mmol/L (3.5-5.1); Sodium Level 134 mmol/L (136-145)
--- NOTE | 2022-12-24 00:52 | ED.RN ---
critical glucose called 595 doctored notified.
[2022-12-24] MEDS: 0.9% Normal Saline 1,000 ML 999 ML IV ×2 (00:54→02:36)
[2022-12-24 00:55] LABS: Glucose, Dipstick 1000 mg/dl (Normal)
[2022-12-24 00:56] LABS: Leukocyte Esterase-Dipstick Negative /ul (Negative); Occult Blood-Urine 50 /ul (Negative); Urine Bilirubin Dipstick Negative (Negative); Urine Urobilinogen Normal (Normal)
[2022-12-24 00:57] LABS: Bacteria 1+ /hpf (None Seen); Hyaline Cast 10-25 SEEN /lpf (0-5); Mucous, Urine 1+ /hpf (<or=2+); Red Blood Cells-Urine 0-5 SEEN /hpf (0-5)
[2022-12-24] MEDS: Metoclopramide 10 MG/2 ML Vial 5 MG IV (00:57)
[2022-12-24 00:58] LABS: Ketone-Dipstick 150 mg/dl (Negative)
[2022-12-24 01:05] LABS: Differential Indicated SCAN CRITERIA MET
[2022-12-24 01:08] LABS: Internal QC Validated? YES +Cl - CLEAR BKGD; Pregnancy, Serum, hCG Quali. NEGATIVE Negative
--- NOTE | 2022-12-24 01:08 | CT_ITS ---
INDICATION: flank pain EXAMINATION: CT ABDOMEN AND PELVIS WITHOUT CONTRAST TECHNIQUE: Helically acquired images were obtained of the abdomen and pelvis without IV contrast. 2-D reconstructions reviewed. A radiation dose optimization technique was used for this scan. IV Contrast dosage and agent: None. Oral contrast: None. COMPARISON: Contrast-enhanced CT abdomen and pelvis from 03/21/2021 FINDINGS: LOWER CHEST: No acute findings within the imaged lung bases. Heart size within normal limits. LIVER: Homogeneous. No discrete mass. GALLBLADDER AND BILIARY TREE: No calcified gallstones identified. No gallbladder wall edema demonstrated. No significant biliary ductal dilation. PANCREAS: No discrete mass or peripancreatic edema. SPLEEN: Normal size without discrete mass. ADRENAL GLANDS: Unremarkable. KIDNEYS AND URETERS: Normal renal size and position. No hydronephrosis. No discrete mass. No tract stones identified. PERITONEUM: No significant free peritoneal fluid. No free air detected. RETROPERITONEUM: No retroperitoneal mass or pathologic fluid collection. BOWEL: Normal appendix inferior to cecum within right lower quadrant. No abnormal stomach or bowel distension. No focal inflammatory change. LYMPH NODES: No enlarged mesenteric or retroperitoneal lymph nodes. VESSELS: No acute findings. No abdominal aortic aneurysm. URINARY BLADDER: Unremarkable as visualized. REPRODUCTIVE ORGANS: No pelvic mass or large adnexal cyst. ABDOMINAL WALL: No acute findings or significant hernia defect. BONES: Intact with no suspicious osseous lesion. CT/Abdomen/Pelvis without Cont IMPRESSION: Negative unenhanced CT abdomen and pelvis. Electronically Signed: Jesus Mcarthur MD at 2:58 EDT ,
--- NOTE | 2022-12-24 01:10 | EX.ED.DYSGE1 ---
HPI History of Present Illness Chief Complaint: Hyperglycemia Informant: patient Narrative Narrative: Patient is a 22-year-old female with history of type 1 diabetes mellitus presenting with nausea, vomiting, elevated blood sugar and back pain. Patient states she has been taking her insulin. She does not currently have an insulin pump. When she checked her blood sugar this morning it read high. She took insulin it went down to 486. Later in the day she took more insulin and on repeat her blood sugar was in the 200s. Patient notes she has been having painful urination today and bilateral low back pain. She states she keeps taking showers to try to help with her low back pain. She states last time she was in DKA was 3 months ago and at that time she had ran out of her insulin. She does not report any fevers. She continues to have nausea and dry heaves. No abdominal pain. No other complaints at this time. [facility] Medical History Anxiety and depression Asthma Diabetes type 1, controlled History of marijuana use Implanon in place Insulin pump titration Presence of insulin pump Home Medications albuterol sulfate 90 mcg/actuation aerosol inhaler (Ventolin HFA) 2 puff inhalation Q4H PRN PRN Sob &/Or Wheezing 08/25/18 [History Last Taken 05/12/19] Ketone Urine Test (acetone (urine) test) #50 ea 11/05/21 [Rx Last Taken Unknown] insulin aspart U-100 100 unit/mL subcutaneous solution 100 unit continuous subcutaneous infusion .continuous #90 mL 09/26/22 [Rx Last Taken Unknown] fluticasone propionate 50 mcg/actuation nasal spray,suspension 2 spray intranasal DAILY 11/21/22 [History Last Taken Unknown] FreeStyle Daniela 14 Day Sensor (flash glucose sensor) #2 ea 11/23/22 [Rx Last Taken Unknown] blood-glucose sensor (Dexcom G6 Sensor device) #10 ea 11/23/22 [Rx Last Taken Unknown] blood-glucose transmitter (Dexcom G6 Transmitter device) #1 ea 11/23/22 [Rx Last Taken Unknown] insulin aspart U-100 100 unit/mL (3 mL) subcutaneous pen (Novolog FlexPen U-100 Insulin aspart) 5 unit (0.05 mL) subcut TID #15 mL 11/23/22 [Rx Last Taken Unknown] insulin glargine 100 unit/mL (3 mL) subcutaneous pen (Basaglar KwikPen U-100 Insulin) 15 unit (0.15 mL) subcut BID #15 mL 11/23/22 [Rx Last Taken Unknown] insulin pump cart,automated,BT (Omnipod 5 G6 Pods (Gen 5) subcutaneous cartridge) #10 ea 11/23/22 [Rx Last Taken Unknown] insulin pump cart,automated,BT (Omnipod 5 G6 Pods (Gen 5) subcutaneous cartridge) #45 ea 11/23/22 [Rx Last Taken Unknown] insulin pump cartridge,automated dose,BT with controller subcutaneous (Omnipod 5 G6 Intro Kit (Gen 5) subcutaneous cartridge with controller) #1 ea 11/23/22 [Rx Last Taken Unknown] pen needle, diabetic 32 gauge x 5/32 (BD Ultra-Fine Opal Pen Needle) #120 ea 11/23/22 [Rx Last Taken Unknown] hydroxyzine pamoate 25 mg capsule (Vistaril) 25 mg PO QHS #30 caps 12/11/22 [Rx Last Taken Unknown] Allergy/AdvReac Type Severity Reaction Status Date / Time bee venom protein (honey bee) Allergy Severe Anaphylaxis Verified 12/23/22 23:50 [bee stings] Penicillins Allergy Unknown Verified 12/23/22 23:50 Sulfa (Sulfonamide Allergy Unknown Verified 12/23/22 23:50 Antibiotics) prednisone AdvReac Vomiting Verified 12/23/22 23:50 Family History Grandmother Diabetes Sister Asthma Brother Asthma Mother Heart disease Surgical History History of placement of ear tubes Social History household members: family Smoking Status: Never smoker second hand exposure: No alcohol intake: never substance use type: other details: Cannabis, last use ~ 1 month prior, ingested. ROS ROS ED Constitutional Constitutional ED: Denies chills or fever(s) Eyes Eyes: Denies change in vision ENT ENT ED: Denies sore throat Cardiovascular Cardiovascular: Denies chest pain or palpitations Respiratory/Chest Respiratory/Chest: Denies cough or dyspnea Gastrointestinal Gastrointestinal: Reports abdominal pain, nausea and vomiting Genitourinary Genitourinary ED: Reports dysuria and urinary frequency; Denies hematuria Musculoskeletal Musculoskeletal: Reports back pain; Denies myalgias Integumentary Denies rash Neurologic Neurologic: Reports headache(s); Denies weakness Psychiatric Psychiatric: Denies anxiety EXAM Physical Exam Const Vital Signs: 12/23/22 23:46 12/23/22 23:51 12/24/22 01:02 Temperature 97.6 F L Temperature Source Temporal Pulse Rate 157 H 145 H Respiratory Rate 34 H Respiratory Effort Normal Non-Labored Respiratory Pattern Normal Blood Pressure 152/101 H Blood Pressure Mean 118 Pulse Ox 98 Oxygen Delivery Method Room Air 12/24/22 02:00 12/24/22 03:49 12/24/22 04:00 Temperature Temperature Source Pulse Rate 143 H 147 H 149 H Respiratory Rate 30 H 32 H 29 H Respiratory Effort Respiratory Pattern Blood Pressure 118/91 H 133/81 H 142/78 H Blood Pressure Mean 100 98 99 Pulse Ox 99 98 96 Oxygen Delivery Method Room Air Room Air Room Air Positive well nourished and well developed Constitutional Narrative: Patient peers dehydrated and in acute distress likely secondary to DKA General Appearance ED: well developed HEENT Reports dry mucous membranes Mouth ED: Yes dry mucous membranes Mouth: dry mucous membranes Eyes PERRL and EOMs intact bilaterally Neck supple Chest Wall inspection of chest normal and palpation of chest normal Resp clear to auscultation bilaterally Resp Narrative: Tachypneic, Kussmaul respirations present Effort and Inspection: Negative for retractions Cardio regular rhythm and no murmurs Rate: tachycardic GI normal to inspection, nondistended, normoactive bowel sounds and non-tender Extremity normal to inspection General Extremety ED: Negative for edema General Extremity: Negative for edema Neuro oriented x3 Sensorium / Orientation: alert Motor Exam: general weakness Psych mental status grossly normal Skin no rashes or lesions noted and no wounds MDM MDM MDM Narrative Medical decision making narrative: Patient is evaluated for nausea, vomiting and dysuria. On arrival patient is tachypneic, tachycardic and her presentation is concerning for DKA especially as she has been having high glucose readings at home. DKA work-up is initiated and she is started on of boluses of IV fluid with 2 L normal saline. Patient has a leukocytosis as well as an elevation of her platelets and hemoglobin. I suspect some of this is reactive and hemoconcentrated.VBG shows a metabolic acidosis with a pH of 7.12, bicarb of 6 and her BMP shows an elevation of her creatinine of 1.43, an elevated glucose of 604, and anion gap of 27 which are all consistent with DKA. Patient's baseline creatinine is 0.6 and she also has an FRANKLIN. Urinalysis is concerning with infection for positive nitrates as well as 1+ bacteria however she also has casts and no white blood cells or leukocyte esterase. She is having symptoms. She is given IV Rocephin however I did also obtain a CT of the abdomen pelvis to make sure that she does not have an obstructing kidney stone as a cause of her pelvic symptoms.CT does not show any acute process. Patient started on an insulin drip. She is admitted to the ICU for further management treatment of her DKA. Case discussed with admitting physician, Dr. Vaca. History & Record Review Additional record(s) reviewed:: Prior labs Lab Data Attestation: I reviewed the patient's lab results. Labs: Laboratory Results - last 24 hr 12/24/22 12/24/22 12/24/22 00:00 00:15 00:15 WBC 21.4 H RBC 5.62 H Hgb 15.6 H Hct 48.4 H MCV 86.1 MCH 27.8 MCHC 32.2 RDW Std Deviation 40.8 RDW Coeff of Marilynn 13.4 Plt Count TNP MPV 10.2 Immature Gran % (Auto) 0.900 Neut % (Auto) 93.0 H Lymph % (Auto) 3.4 L Gilliam % (Auto) 2.4 Eos % (Auto) 0.0 Baso % (Auto) 0.3 Absolute Neuts (auto) 19.9 H Absolute Lymphs (auto) 0.73 L Nucleated RBC % 0 Platelet Estimate ADEQUATE Sodium 134 L Potassium 4.3 Chloride 97 L Carbon Dioxide 10.0 L Anion Gap 27 H BUN 14 Creatinine 1.43 H Estim Creat Clear Calc 55.74 Est GFR (MDRD) Af Amer 58 L Est GFR (MDRD) Non-Af 48 L BUN/Creatinine Ratio 9.8 L Glucose 595 H* Calcium 10.0 Phosphorus 4.2 Magnesium 2.3 Total Bilirubin 0.60 AST 12 L ALT 18 Alkaline Phosphatase 130 H Total Protein 9.0 H Albumin 4.7 Globulin 4.3 H Albumin/Globulin Ratio 1.1 Serum , Qual Urine Color Yellow Urine Clarity Clear Urine pH 6.0 Ur Specific [place] 1.025 Urine Protein 100 H Urine Glucose (UA) 1000 H Urine Ketones 150 A* Urine Occult Blood 50 H Urine Nitrite Positive H Urine Bilirubin Negative Urine Urobilinogen Normal Ur Leukocyte Esterase Negative Urine RBC 0-5 SEEN Urine WBC 0 SEEN Ur Squamous Epith Cells 0 SEEN Urine Bacteria 1+ Hyaline Casts 10-25 SEEN Urine Mucus 1+ Acetone Level POC Glucose 12/24/22 12/24/22 12/24/22 00:15 00:15 00:15 WBC RBC Hgb Hct MCV MCH MCHC RDW Std Deviation RDW Coeff of Marilynn Plt Count MPV Immature Gran % (Auto) Neut % (Auto) Lymph % (Auto) Gilliam % (Auto) Eos % (Auto) Baso % (Auto) Absolute Neuts (auto) Absolute Lymphs (auto) Nucleated RBC % Platelet Estimate Sodium Cancelled Potassium Cancelled Chloride Cancelled Carbon Dioxide Cancelled Anion Gap Cancelled BUN Cancelled Creatinine Cancelled Estim Creat Clear Calc Cancelled Est GFR (MDRD) Af Amer Cancelled Est GFR (MDRD) Non-Af Cancelled BUN/Creatinine Ratio Cancelled Glucose Cancelled Calcium Cancelled Phosphorus Magnesium Total Bilirubin AST ALT Alkaline Phosphatase Total Protein Albumin Globulin Albumin/Globulin Ratio Serum , Qual NEGATIVE Urine Color Urine Clarity Urine pH Ur Specific [place] Urine Protein Urine Glucose (UA) Urine Ketones Urine Occult Blood Urine Nitrite Urine Bilirubin Urine Urobilinogen Ur Leukocyte Esterase Urine RBC Urine WBC Ur Squamous Epith Cells Urine Bacteria Hyaline Casts Urine Mucus Acetone Level SMALL H POC Glucose 12/24/22 12/24/22 12/24/22 00:24 01:26 02:27 WBC RBC Hgb Hct MCV MCH MCHC RDW Std Deviation RDW Coeff of Marilynn Plt Count MPV Immature Gran % (Auto) Neut % (Auto) Lymph % (Auto) Gilliam % (Auto) Eos % (Auto) Baso % (Auto) Absolute Neuts (auto) Absolute Lymphs (auto) Nucleated RBC % Platelet Estimate Sodium Potassium Chloride Carbon Dioxide Anion Gap BUN Creatinine Estim Creat Clear Calc Est GFR (MDRD) Af Amer Est GFR (MDRD) Non-Af BUN/Creatinine Ratio Glucose Calcium Phosphorus Magnesium Total Bilirubin AST ALT Alkaline Phosphatase Total Protein Albumin Globulin Albumin/Globulin Ratio Serum , Qual Urine Color Urine Clarity Urine pH Ur Specific [place] Urine Protein Urine Glucose (UA) Urine Ketones Urine Occult Blood Urine Nitrite Urine Bilirubin Urine Urobilinogen Ur Leukocyte Esterase Urine RBC Urine WBC Ur Squamous Epith Cells Urine Bacteria Hyaline Casts Urine Mucus Acetone Level POC Glucose > 500 H* > 500 H* > 500 H* 12/24/22 12/24/22 12/24/22 03:20 03:22 04:37 WBC RBC Hgb Hct MCV MCH MCHC RDW Std Deviation RDW Coeff of Marilynn Plt Count MPV Immature Gran % (Auto) Neut % (Auto) Lymph % (Auto) Gilliam % (Auto) Eos % (Auto) Baso % (Auto) Absolute Neuts (auto) Absolute Lymphs (auto) Nucleated RBC % Platelet Estimate Sodium Potassium Chloride Carbon Dioxide Anion Gap BUN Creatinine Estim Creat Clear Calc Est GFR (MDRD) Af Amer Est GFR (MDRD) Non-Af BUN/Creatinine Ratio Glucose 604 H* Calcium Phosphorus Magnesium Total Bilirubin AST ALT Alkaline Phosphatase Total Protein Albumin Globulin Albumin/Globulin Ratio Serum , Qual Urine Color Urine Clarity Urine pH Ur Specific [place] Urine Protein Urine Glucose (UA) Urine Ketones Urine Occult Blood Urine Nitrite Urine Bilirubin Urine Urobilinogen Ur Leukocyte Esterase Urine RBC Urine WBC Ur Squamous Epith Cells Urine Bacteria Hyaline Casts Urine Mucus Acetone Level POC Glucose > 500 H* 434 H ABG Data ABG results: ABG 12/24/22 00:24 Specimen Type LUIS VBG pH 7.12 L* VBG pO2 57 H VBG HCO3 6 L VBG Total CO2 6 L VBG O2 Sat (Calc) 80 H VBG Base Excess -24 L POC Mix VBG pCO2 Pt Tmp 17.7 L* Crit Call To/Read Back Yes Radiography Diagnostic Testing: Clinical Impression(s) from Imaging Studies Abdomen/Pelvis CT 12/24/22 01:08 IMPRESSION: Negative unenhanced CT abdomen and pelvis. Electronically Signed: Jesus Mcarthur MD at 2:58 EDT , Rhythm Strip Rhythm Strip: Sinus Tach Rate: 146 Ectopy: None EKG Initial EKG: Attestation: I personally reviewed and interpreted this EKG as follows: Interpretation: Sinus Tachycardia Comments: Sinus tachycardia rate of 146 bpm Normal axis Normal intervals Normal ST segments Critical Care Time Critical Care Time: Yes Critical care time (excluding procedures): 30-74 minutes (40), Discussing w/Patient &/or Family/Tuberculosis Specialist, Arranging Admission or Transfer and Performing Direct Patient Care at Bedside Discharge Plan Triage Chief Complaint: Hyperglycemia ED Provider: Danitza [place] Dx/Rx/DC Orders Clinical Impression: DKA, type 1, FRANKLIN (acute kidney injury), UTI (urinary tract infection) Prescriptions: No Action insulin aspart U-100 100 unit/mL solution 100 unit continuous subcutaneous infusion .continuous Qty: 90 1RF albuterol sulfate [Ventolin HFA] 18 GM HFA aerosol inhaler 2 puff inhalation Q4H PRN PRN (Reason: Sob &/Or Wheezing) Label Comments: inhale 2 puffs by mouth every 4 hours if needed fluticasone propionate 50 mcg/actuation spray,suspension 2 spray INTRANASAL DAILY Label Comments: USE 2 SPRAYS IN EACH NOSTRIL ONCE DAILY. RINSE MOUTH AFTER USE. (DME) Dexcom G6 Sensor Device See Rx Instructions .Route Qty: 10 5RF Rx Instructions: As directed (DME) Dexcom G6 Transmitter Device See Rx Instructions .Route Qty: 1 3RF Rx Instructions: As directed (DME) pen needle, diabetic [BD Ultra-Fine Opal Pen Needle] 32 gauge x 5/32 needle See Rx Instructions .ROUTE .MEDSUPPLY Qty: 120 5RF Rx Instructions: 4 times daily (DME) FreeStyle Daniela 14 Day Sensor Kit See Rx Instructions .ROUTE .MEDSUPPLY Qty: 2 3RF Rx Instructions: As directed (DME) Omnipod 5 G6 Pods (Gen 5) Cartridge See Rx Instructions .Route Qty: 10 5RF Rx Instructions: As directed (DME) Omnipod 5 G6 Pods (Gen 5) Cartridge See Rx Instructions .Route Qty: 45 1RF Rx Instructions: change every 48-72 hours (DME) Omnipod 5 G6 Intro Kit (Gen 5) Cartridge See Rx Instructions .Route Qty: 1 0RF Rx Instructions: As directed insulin glargine [Basaglar KwikPen U-100 Insulin] 100 unit/mL (3 mL) insulin pen 15 unit subcut BID Qty: 15 0RF insulin aspart U-100 [Novolog FlexPen U-100 Insulin] 100 unit/mL (3 mL) insulin pen 5 unit subcut TID Qty: 15 0RF (DME) Ketone Urine Test Strip See Rx Instructions .ROUTE .MEDSUPPLY Qty: 50 1RF Rx Instructions: once/day hydroxyzine pamoate [Vistaril] 25 mg capsule 25 mg PO QHS Qty: 30 6RF Primary Care Provider: Erika Sen Referrals: Erika Sen MD [Primary Care Provider] - Disposition Disposition: Acute Care Hospital [facility]
[2022-12-24] MEDS: fentaNYL 100 MCG/2 ML Ampul 50 MCG IV (01:20)
[2022-12-24 01:21] LABS: Platelet Estimate ADEQUATE (ADEQ)
[2022-12-24] MEDS: Ceftriaxone 1 GM/50 ML BAG IV ×2 (01:26→17:45)
[2022-12-24 01:45] LABS: Bedside Glucose > 500 mg/dL (74-106)
[2022-12-24 02:46] LABS: Bedside Glucose > 500 mg/dL (74-106)
[2022-12-24 03:42] LABS: Bedside Glucose > 500 mg/dL (74-106)
[2022-12-24 03:59] LABS: Glucose 604 mg/dL (74-106)
[2022-12-24 04:57] LABS: Bedside Glucose 434 mg/dL (74-106)
--- NOTE | 2022-12-24 05:09 | PCM.HP.STD ---
HPI - General General Date of Admission: 12/24/22 Date of Service: 12/24/22 Chief Complaint: Nausea and vomiting HPI Narrative KALIE DESIR, is a 22 F with a significant history of type 1 diabetes who presents to the emergency department with profuse nausea and vomiting that started the day before presentation. Also patient blood glucose read high at home. Further patient reports of middle back pain that radiated to her right side. Further, she complaint of dysuria. She has not received pain insulin pump yet because of a problem with transportation for which reason she has not seen her doctor.. [facility]LY [facility] Medical History Anxiety and depression Asthma Diabetes type 1, controlled History of marijuana use Implanon in place Insulin pump titration Presence of insulin pump Home Medications albuterol sulfate 90 mcg/actuation aerosol inhaler (Ventolin HFA) 2 puff inhalation Q4H PRN PRN Sob &/Or Wheezing 08/25/18 [History Last Taken 05/12/19] Ketone Urine Test (acetone (urine) test) #50 ea 11/05/21 [Rx Last Taken Unknown] insulin aspart U-100 100 unit/mL subcutaneous solution 100 unit continuous subcutaneous infusion .continuous #90 mL 09/26/22 [Rx Last Taken Unknown] fluticasone propionate 50 mcg/actuation nasal spray,suspension 2 spray intranasal DAILY 11/21/22 [History Last Taken Unknown] FreeStyle Daniela 14 Day Sensor (flash glucose sensor) #2 ea 11/23/22 [Rx Last Taken Unknown] blood-glucose sensor (Dexcom G6 Sensor device) #10 ea 11/23/22 [Rx Last Taken Unknown] blood-glucose transmitter (Dexcom G6 Transmitter device) #1 ea 11/23/22 [Rx Last Taken Unknown] insulin aspart U-100 100 unit/mL (3 mL) subcutaneous pen (Novolog FlexPen U-100 Insulin aspart) 5 unit (0.05 mL) subcut TID #15 mL 11/23/22 [Rx Last Taken Unknown] insulin glargine 100 unit/mL (3 mL) subcutaneous pen (Basaglar KwikPen U-100 Insulin) 15 unit (0.15 mL) subcut BID #15 mL 11/23/22 [Rx Last Taken Unknown] insulin pump cart,automated,BT (Omnipod 5 G6 Pods (Gen 5) subcutaneous cartridge) #10 ea 11/23/22 [Rx Last Taken Unknown] insulin pump cart,automated,BT (Omnipod 5 G6 Pods (Gen 5) subcutaneous cartridge) #45 ea 11/23/22 [Rx Last Taken Unknown] insulin pump cartridge,automated dose,BT with controller subcutaneous (Omnipod 5 G6 Intro Kit (Gen 5) subcutaneous cartridge with controller) #1 ea 11/23/22 [Rx Last Taken Unknown] pen needle, diabetic 32 gauge x 5/32 (BD Ultra-Fine Opal Pen Needle) #120 ea 11/23/22 [Rx Last Taken Unknown] hydroxyzine pamoate 25 mg capsule (Vistaril) 25 mg PO QHS #30 caps 12/11/22 [Rx Last Taken Unknown] Allergy/AdvReac Type Severity Reaction Status Date / Time bee venom protein (honey bee) Allergy Severe Anaphylaxis Verified 12/23/22 23:50 [bee stings] Penicillins Allergy Unknown Verified 12/23/22 23:50 Sulfa (Sulfonamide Allergy Unknown Verified 12/23/22 23:50 Antibiotics) prednisone AdvReac Vomiting Verified 12/23/22 23:50 Family History Grandmother Diabetes Sister Asthma Brother Asthma Mother Heart disease Surgical History History of placement of ear tubes Social History household members: family Smoking Status: Never smoker second hand exposure: No alcohol intake: never substance use type: other details: Cannabis, last use ~ 1 month prior, ingested. ROS ROS Narrative Pertinent positives and pertinent negatives as noted in HPI. All other systems were reviewed and are negative Vital Signs Vital Signs Vital Signs: 12/23/22 23:46 12/23/22 23:51 12/24/22 01:02 Temperature 97.6 F L Temperature Source Temporal Pulse Rate 157 H 145 H Respiratory Rate 34 H Respiratory Effort Normal Non-Labored Respiratory Pattern Normal Blood Pressure 152/101 H Blood Pressure Mean 118 Pulse Ox 98 Oxygen Delivery Method Room Air 12/24/22 02:00 12/24/22 03:49 12/24/22 04:00 Temperature Temperature Source Pulse Rate 143 H 147 H 149 H Respiratory Rate 30 H 32 H 29 H Respiratory Effort Respiratory Pattern Blood Pressure 118/91 H 133/81 H 142/78 H Blood Pressure Mean 100 98 99 Pulse Ox 99 98 96 Oxygen Delivery Method Room Air Room Air Room Air Weight Weight: 58.2 kg Body Mass Index (BMI) 25.9 Physical Exam Narrative Physical exam: General: Well-nourished, well-developed. Head: Normocephalic, atraumatic, no tenderness Eyes: Vision is grossly intact. EOMI ENT, no trauma, moist mucous membranes, no rhinorrhea Neck: Nontender, No thyromegaly. CVS: Tachycardia. S1-S2 present. No murmur, gallop or rub. Respiratory : clear to auscultation bilaterally, chest wall nontender Abdomen: Soft, tender, nondistended, normal bowel sounds, no masses. Left costovertebral angle tenderness : Deferred Back: Nontender, no CVA tenderness, no midline spinal tenderness, deformities, step-offs Extremities: Nontender full range of motion, no trauma Skin: Normal color, no trauma, abrasions Neuro: Alert, oriented, cranial nerves II through XII grossly intact. Psychiatry: Normal mood. Normal affect. Not depressed. Not anxious. Results Lab / Micro Data Result Diagrams: 12/24/22 00:15 12/24/22 03:20 Labs: Laboratory Results - last 24 hr 12/24/22 00:00: Urine Color Yellow, Urine Clarity Clear, Urine pH 6.0, Ur Specific [place] 1.025, Urine Protein 100 H, Urine Glucose (UA) 1000 H, Urine Ketones 150 A*, Urine Occult Blood 50 H, Urine Nitrite Positive H, Urine Bilirubin Negative, Urine Urobilinogen Normal, Ur Leukocyte Esterase Negative, Urine RBC 0-5 SEEN, Urine WBC 0 SEEN, Ur Squamous Epith Cells 0 SEEN, Urine Bacteria 1+, Hyaline Casts 10-25 SEEN, Urine Mucus 1+ 12/24/22 00:15: WBC 21.4 H, RBC 5.62 H, Hgb 15.6 H, Hct 48.4 H, MCV 86.1, MCH 27.8, MCHC 32.2, RDW Std Deviation 40.8, RDW Coeff of Marilynn 13.4, Plt Count TNP, MPV 10.2, Immature Gran % (Auto) 0.900, Neut % (Auto) 93.0 H, Lymph % (Auto) 3.4 L, [place] % (Auto) 2.4, Eos % (Auto) 0.0, Baso % (Auto) 0.3, Absolute Neuts (auto) 19.9 H, Absolute Lymphs (auto) 0.73 L, Nucleated RBC % 0, Platelet Estimate ADEQUATE 12/24/22 00:15: Sodium 134 L, Potassium 4.3, Chloride 97 L, Carbon Dioxide 10.0 L, Anion Gap 27 H, BUN 14, Creatinine 1.43 H, Estim Creat Clear Calc 55.74, Est GFR (MDRD) Af Amer 58 L, Est GFR (MDRD) Non-Af 48 L, BUN/Creatinine Ratio 9.8 L, Glucose 595 H*, Calcium 10.0, Phosphorus 4.2, Magnesium 2.3, Total Bilirubin 0.60, AST 12 L, ALT 18, Alkaline Phosphatase 130 H, Total Protein 9.0 H, Albumin 4.7, Globulin 4.3 H, Albumin/Globulin Ratio 1.1 12/24/22 00:15: Acetone Level SMALL H 12/24/22 00:15: Serum , Qual NEGATIVE 12/24/22 00:15: Sodium Cancelled, Potassium Cancelled, Chloride Cancelled, Carbon Dioxide Cancelled, Anion Gap Cancelled, BUN Cancelled, Creatinine Cancelled, Estim Creat Clear Calc Cancelled, Est GFR (MDRD) Af Amer Cancelled, Est GFR (MDRD) Non-Af Cancelled, BUN/Creatinine Ratio Cancelled, Glucose Cancelled, Calcium Cancelled 12/24/22 00:24: POC Glucose > 500 H* 12/24/22 01:26: POC Glucose > 500 H* 12/24/22 02:27: POC Glucose > 500 H* 12/24/22 03:20: Glucose 604 H* 12/24/22 03:22: POC Glucose > 500 H* 12/24/22 04:37: POC Glucose 434 H ABG Data ABG results: ABG 12/24/22 00:24 Specimen Type LUIS VBG pH 7.12 L* VBG pO2 57 H VBG HCO3 6 L VBG Total CO2 6 L VBG O2 Sat (Calc) 80 H VBG Base Excess -24 L POC Mix VBG pCO2 Pt Tmp 17.7 L* Crit Call To/Read Back Yes Rhythm Strip Rhythm Strip: Sinus Tach Rate: 146 Ectopy: None Radiology Impression Abdomen/Pelvis CT 12/24/22 01:08 IMPRESSION: Negative unenhanced CT abdomen and pelvis. Electronically Signed: Jesus Mcarthur MD at 2:58 EDT , Assessment & Plan Assessment/Plan (1) DKA, type 1: (2) FRANKLIN (acute kidney injury): (3) UTI (urinary tract infection): PLAN: Plan DKA Serum glucose: 595 on presentation acetone level: Small Anion gap of 27 Sodium 134, . Corrected sodium: 144 Insulin drip started from emergency department; continue Completed IV bolus of normal saline and normal saline infusion Because of potassium of 4.3 we will start patient on half-normal saline with potassium. BMP every 4 hours to calculate anion gap. N.p.o. for now except ice Admitted to ICU A1c on 11/22/2022 was 9.9. FRANKLIN Creatinine on presentation was 1.43. Her baseline creatinine is less than 1. IV hydration. Trend BMP. Acute UTI Patient with dysuria and reports back pain, and right flank pain, left flank was rather tender. Urine nitrite positive. However urine leukocyte esterase was negative and urine white count was 0. Started on ceftriaxone emergency department and continued. DVT prophylaxis: Subcutaneous Lovenox ordered. Charges/Coding Visit Charges Inpatient E&M: 64458 Init Hosp L3
[2022-12-24] MEDS: 0.9% Normal Saline 1,000 ML 200 ML IV (06:04)
[2022-12-24 06:33] LABS: Bedside Glucose 388 mg/dL (74-106)
[2022-12-24 07:19] LABS: Bedside Glucose 325 mg/dL (74-106)
[2022-12-24] MEDS: KCL 20MEQ in 0.45%NS 20 MEQ/1,000 ML IV.SOLN. 175 MEQ IV (07:42)
[2022-12-24] MEDS: Enoxaparin 40 MG/0.4 ML Syringe SC (07:43)
[2022-12-24 08:24] LABS: Bedside Glucose 301 mg/dL (74-106)
[2022-12-24 09:16] LABS: Anion Gap 17 (5-15); BUN 12 mg/dL (7-18); BUN/Creat Ratio 11.9 RATIO (10-20); Calcium,Total 8.8 mg/dL (8.5-10.1); Chloride 115 mmol/L (98-107); Creatinine, Serum 1.01 mg/dL (0.55-1.02); EST Glomerular Filtration Rate 71 mL/min (>60); Est Glom Filt Rate - Afr Amer 86 mL/min (>60); Estimated Creatinine Clearance 77.42 ml/min; Glucose 315 mg/dL (74-106); Potassium 4.3 mmol/L (3.5-5.1); Sodium Level 136 mmol/L (136-145)
[2022-12-24 09:35] LABS: Bedside Glucose 298 mg/dL (74-106)
[2022-12-24] MEDS: KCL 20MEQ in D5.45NS 20 MEQ/1,000 ML IV.SOLN. 125 MEQ IV (09:50)
[2022-12-24 10:04] LABS: Bacteria 0 SEEN /hpf (None Seen); Mucous, Urine 0 SEEN /hpf (<or=2+); White Blood Cells 0 SEEN /hpf (0-5)
[2022-12-24 10:14] LABS: Color, Urine Yellow (Yellow); Glucose, Dipstick 1000 mg/dl (Normal); Leukocyte Esterase-Dipstick Negative /ul (Negative); Nitrite-Dipstick Negative (Negative); Occult Blood-Urine 25 /ul (Negative); Protein-Dipstick 30 mg/dl (Negative); Urine Bilirubin Dipstick Negative (Negative); Urine Clarity Sl. Cloudy (Clear); Urine Urobilinogen Normal (Normal)
[2022-12-24 10:21] LABS: Ketone-Dipstick 150 mg/dl (Negative)
--- NOTE | 2022-12-24 10:29 | CON.PCM.CC_ITS ---
Assessment & Plan Assessment/Plan (1) DKA, type 1: PLAN: Patient's DKA has been resistant on the usual protocol. Bicarbonate has decreased to 4, glucose is reasonably well controlled but protocol is insufficient for her level of ketoacidosis. - Change IV fluids to D5 half-normal saline at 125 cc/h with 20 of K - Change insulin drip to 8 units/h, continue while assuring adequate glucose until bicarbonate increases to 15 or more, then adjust as needed. -BMP every 2 hours - Check urine ketones every 4 hours or as available - Continue every hour glucose check - Repeat at noon showed improvement in bicarbonate to 15 on 8 units/h. We will add D10 to keep her glucose approximately 180-220, and help avoid fluid overload. (2) FRANKLIN (acute kidney injury): PLAN: BUN and creatinine are now normal. - Continue hydration - Avoid nephrotoxic medications - Monitor fluids and electrolytes closely (3) UTI (urinary tract infection): PLAN: Continue ceftriaxone, await culture results (4) Asthma: QUALIFIERS: Asthma complication type: uncomplicated Asthma persistence: unspecified Asthma severity: mild Qualified Code(s): J45.909 - Unspecified asthma, uncomplicated PLAN: Treat as needed. Currently asymptomatic with clear lungs PLAN: Plan I anticipate that we can decrease her insulin drip by this afternoon, as long as bicarbonate continues its normalizing trend. HPI Consult Data Date of Consult: 12/24/22 HPI Narrative Reason for Consultation: DKA, resistant to usual ICU insulin protocol HPI Narrative: KALIE DESIR, is a 22 F who presents in DKA, likely precipitated by UTI. She was well, ambulatory and active prior to 2 days before admission, when she started having pain in her flank, and vomited. She continued to vomit, and presented to the ER in DKA. Her last episode was about 2 months ago, with a similar presentation. She denies any flare in her asthma. She vomited multiple times this morning. She states that she is compliant with her medications, although today her boyfr iend visited her and brought Gatorade, which she drank before the nurse caught her. She has been on the insulin drip protocol and down to 0.9 units/h, unfortunately the bicarbonate fell from 10->4 although the glucose was well controlled. FOR[facility]LY [facility] Medical History Anxiety and depression Asthma Diabetes type 1, controlled History of marijuana use Implanon in place Insulin pump titration Presence of insulin pump Home Medications albuterol sulfate 90 mcg/actuation aerosol inhaler (Ventolin HFA) 2 puff inhalation Q4H PRN PRN Sob &/Or Wheezing 08/25/18 [History Last Taken 05/12/19] Ketone Urine Test (acetone (urine) test) #50 ea 11/05/21 [Rx Last Taken Unknown] insulin aspart U-100 100 unit/mL subcutaneous solution 100 unit continuous sub cutaneous infusion .continuous #90 mL 09/26/22 [Rx Last Taken Unknown] fluticasone propionate 50 mcg/actuation nasal spray,suspension 2 spray intranasal DAILY 11/21/22 [History Last Taken Unknown] FreeStyle Daniela 14 Day Sensor (flash glucose sensor) #2 ea 11/23/22 [Rx Last Taken Unknown] blood-glucose sensor (Dexcom G6 Sensor device) #10 ea 11/23/22 [Rx Last Taken Unknown] blood-glucose transmitter (Dexcom G6 Transmitter device) #1 ea 11/23/22 [Rx Last Taken Unknown] insulin aspart U-100 100 unit/mL (3 mL) subcutaneous pen (Novolog FlexPen U-100 Insulin aspart) 5 unit (0.05 mL) subcut TID #15 mL 11/23/22 [Rx Last Taken Unknown] insulin glargine 100 unit/mL (3 mL) subcutaneous pen (Basaglar KwikPen U-100 Insulin) 15 unit (0.15 mL) subcut BID #15 mL 11/23/22 [Rx Last Taken Unknown] insulin pump cart,automated,BT (Omnipod 5 G6 Pods (Gen 5) subcutaneous cartridge) #10 ea 11/23/22 [Rx Last Taken Unknown] insulin pump cart,automated,BT (Omnipod 5 G6 Pods (Gen 5) subcutaneous cartridge) #45 ea 11/23/22 [Rx Last Taken Unknown] insulin pump cartridge,automated dose,BT with controller subcutaneous (Omnipod 5 G6 Intro Kit (Gen 5) subcutaneous cartridge with controller) #1 ea 11/23/22 [Rx Last Taken Unknown] pen needle, diabetic 32 gauge x 5/32 (BD Ultra-Fine Opal Pen Needle) #120 ea 11/23/22 [Rx Last Taken Unknown] hydroxyzine pamoate 25 mg capsule (Vistaril) 25 mg PO QHS #30 caps 12/11/22 [Rx Last Taken Unknown] Allergy/AdvReac Type Severity Reaction Status Date / Time bee venom protein (honey bee) Allergy Severe Anaphylaxis Verified 12/23/22 23:50 [bee stings] Penicillins Allergy Unknown Verified 12/23/22 23:50 Sulfa (Sulfonamide Allergy Unknown Verified 12/23/22 23:50 Antibiotics) prednisone AdvReac Vomiting Verified 12/23/22 23:50 Family History Grandmother Diabetes Sister Asthma Brother Asthma Mother Heart disease Surgical History History of placement of ear tubes Social History household members: family Smoking Status: Never smoker second hand exposure: No alcohol intake: never substance use type: other details: Cannabis, last use ~ 1 month prior, ingested. ROS ROS Narrative 10 system review is negative except as above Physical Exam Narrative Well-developed pleasant well-nourished young woman who was initially vomiting when I saw her, with brown/magenta hair, multiple facial piercings, alert oriented and articulate. HEENT: Mucous membranes moist, mid tongue piercing present without erythema or purulence. Extraoculars are intact pupils are equal sclera anicteric conjunctiva noninjected. Vomitus was clear saliva. Dentition is good. Neck is supple with no JVD thyromegaly or mass Chest is clear bilaterally with no wheezes rales or rhonchi Cardiac normal regular tachycardic S1-S2 with no murmurs Abdomen is soft, mildly tender and guarded no rebound, good bowel sounds. No organomegaly. is unremarkable. Extremities have no clubbing cyanosis or edema Skin have multiple brownish discolored scars on both upper and lower extremities from picking scabs. No open or active lesions at this time. Neuro is grossly nonfocal with no tremor, normal mental status. Medical Records Data Attestation: I reviewed the patient's medical records Lab / Micro Data Attestation: I reviewed the patient's lab results. Result Diagrams: 12/24/22 00:15 12/24/22 12:45 Labs: Laboratory Results - last 24 hr 12/24/22 00:00: Urine Color Yellow, Urine Clarity Clear, Urine pH 6.0, Ur Specific [place] 1.025, Urine Protein 100 H, Urine Glucose (UA) 1000 H, Urine Ketones 150 A*, Urine Occult Blood 50 H, Urine Nitrite Positive H, Urine Bilirubin Negative, Urine Urobilinogen Normal, Ur Leukocyte Esterase Negative, Urine RBC 0-5 SEEN, Urine WBC 0 SEEN, Ur Squamous Epith Cells 0 SEEN, Urine Bacteria 1+, Hyaline Casts 10-25 SEEN, Urine Mucus 1+ 12/24/22 00:15: WBC 21.4 H, RBC 5.62 H, Hgb 15.6 H, Hct 48.4 H, MCV 86.1, MCH 27.8, MCHC 32.2, RDW Std Deviation 40.8, RDW Coeff of Marilynn 13.4, Plt Count TNP, MPV 10.2, Immature Gran % (Auto) 0.900, Neut % (Auto) 93.0 H, Lymph % (Auto) 3.4 L, [place] % (Auto) 2.4, Eos % (Auto) 0.0, Baso % (Auto) 0.3, Absolute Neuts (auto) 19.9 H, Absolute Lymphs (auto) 0.73 L, Nucleated RBC % 0, Platelet Estimate ADEQUATE 12/24/22 00:15: Sodium 134 L, Potassium 4.3, Chloride 97 L, Carbon Dioxide 10.0 L, Anion Gap 27 H, BUN 14, Creatinine 1.43 H, Estim Creat Clear Calc 55.74, Est GFR (MDRD) Af Amer 58 L, Est GFR (MDRD) Non-Af 48 L, BUN/Creatinine Ratio 9.8 L, Glucose 595 H*, Calcium 10.0, Phosphorus 4.2, Magnesium 2.3, Total Bilirubin 0.60, AST 12 L, ALT 18, Alkaline Phosphatase 130 H, Total Protein 9.0 H, Albumin 4.7, Globulin 4.3 H, Albumin/Globulin Ratio 1.1 12/24/22 00:15: Acetone Level SMALL H 12/24/22 00:15: Serum , Qual NEGATIVE 12/24/22 00:15: Sodium Cancelled, Potassium Cancelled, Chloride Cancelled, Carbon Dioxide Cancelled, Anion Gap Cancelled, BUN Cancelled, Creatinine Cancelled, Estim Creat Clear Calc Cancelled, Est GFR (MDRD) Af Amer Cancelled, Est GFR (MDRD) Non-Af Cancelled, BUN/Creatinine Ratio Cancelled, Glucose Cancelled, Calcium Cancelled 12/24/22 00:24: POC Glucose > 500 H* 12/24/22 01:26: POC Glucose > 500 H* 12/24/22 02:27: POC Glucose > 500 H* 12/24/22 03:20: Glucose 604 H* 12/24/22 03:22: POC Glucose > 500 H* 12/24/22 04:37: POC Glucose 434 H 12/24/22 05:55: POC Glucose 388 H 12/24/22 07:01: POC Glucose 325 H 12/24/22 08:05: POC Glucose 301 H 12/24/22 08:28: Sodium 136, Potassium 4.3, Chloride 115 H, Carbon Dioxide 4.0 L* , Anion Gap 17 H, BUN 12, Creatinine 1.01, Estim Creat Clear Calc 77.42, Est GFR (MDRD) Af Amer 86, Est GFR (MDRD) Non-Af 71, BUN/Creatinine Ratio 11.9, Glucose 315 H, Calcium 8.8 12/24/22 09:14: POC Glucose 298 H 12/24/22 09:55: Urine Color Yellow, Urine Clarity Sl. Cloudy, Urine pH 5.0, Ur Specific [place] 1.020, Urine Protein 30 H, Urine Glucose (UA) 1000 H, Urine Ketones 150 A*, Urine Occult Blood 25 H, Urine Nitrite Negative, Urine Bilirubin Negative, Urine Urobilinogen Normal, Ur Leukocyte Esterase Negative Micro: Pending, no growth to date ABG Data ABG results: ABG 12/24/22 00:24 Specimen Type LUIS VBG pH 7.12 L* VBG pO2 57 H VBG HCO3 6 L VBG Total CO2 6 L VBG O2 Sat (Calc) 80 H VBG Base Excess -24 L POC Mix VBG pCO2 Pt Tmp 17.7 L* Crit Call To/Read Back Yes Rhythm Strip Rhythm Strip: Sinus Tach Rate: 146 Ectopy: None Radiology Impression Abdomen/Pelvis CT 12/24/22 01:08 IMPRESSION: Negative unenhanced CT abdomen and pelvis. Electronically Signed: Jesus Mcarthur MD at 2:58 EDT , Charges/Coding Procedures Hospitalists Procedures: [id number] Critial Care 1st Hr
[2022-12-24 10:30] LABS: Red Blood Cells-Urine 0-5 SEEN /hpf (0-5); Squamous Epithelial Cells - UA 0-5 SEEN /hpf (5-10)
[2022-12-24] MEDS: Ondansetron 4 MG/2 ML Vial IV (10:49)
[2022-12-24] MEDS: 0.9% Saline Lock 10 ML Syringe IV (10:49)
[2022-12-24 10:53] LABS: Bedside Glucose 282 mg/dL (74-106)
[2022-12-24 11:49] LABS: Bedside Glucose 224 mg/dL (74-106)
--- NOTE | 2022-12-24 12:45 | NURSING ---
RN in to draw blood, patient acting suspicious and quiet with right arm under blankets. Blood drawn, questioned patient if needed to void, patient declined. This RN left room and observed patient on camera drinking from bottle, this RN entered room and patient was drinking gatorade zero. Educated on nothing to eat or drink while on insulin gtt, gatorade given to boyfriend, patient up to void.
[2022-12-24 12:47] LABS: Bedside Glucose 204 mg/dL (74-106)
[2022-12-24 13:03] LABS: Mucous, Urine 0 SEEN /hpf (<or=2+); White Blood Cells 0 SEEN /hpf (0-5)
[2022-12-24 13:04] LABS: Color, Urine Yellow (Yellow); Glucose, Dipstick 1000 mg/dl (Normal); Leukocyte Esterase-Dipstick Negative /ul (Negative); Nitrite-Dipstick Negative (Negative); Occult Blood-Urine 25 /ul (Negative); Protein-Dipstick 100 mg/dl (Negative); Urine Bilirubin Dipstick Negative (Negative); Urine Clarity Clear (Clear); Urine Urobilinogen Normal (Normal)
[2022-12-24 13:05] LABS: Ketone-Dipstick 150 mg/dl (Negative)
[2022-12-24 13:12] LABS: Bacteria RARE /hpf (None Seen); Red Blood Cells-Urine 0-5 SEEN /hpf (0-5); Squamous Epithelial Cells - UA 0-5 SEEN /hpf (5-10)
[2022-12-24 13:13] LABS: Fine Granular Cast- Urine 0-5 SEEN /lpf (0-5)
[2022-12-24 13:14] LABS: AST(SGOT) 4 U/L (15-37); Alanine Aminotransfer ALT/SGPT 14 U/L (13-56); Alkaline Phosphatase 117 U/L (45-117); Anion Gap 12 (5-15); BUN 10 mg/dL (7-18); BUN/Creat Ratio 10.5 RATIO (10-20); Calcium,Total 9.2 mg/dL (8.5-10.1); Chloride 118 mmol/L (98-107); Creatinine, Serum 0.95 mg/dL (0.55-1.02); EST Glomerular Filtration Rate 76 mL/min (>60); Est Glom Filt Rate - Afr Amer 93 mL/min (>60); Estimated Creatinine Clearance 82.31 ml/min; Globulin 4.1 g/dL (2.2-4.2); Glucose 182 mg/dL (74-106); Potassium 3.5 mmol/L (3.5-5.1); Protein, Total 8.1 g/dL (6.4-8.2); Sodium Level 142 mmol/L (136-145)
[2022-12-24 13:36] LABS: Bedside Glucose 161 mg/dL (74-106)
[2022-12-24 14:39] LABS: Bedside Glucose 148 mg/dL (74-106)
--- NOTE | 2022-12-24 14:47 | NURSING ---
KCL 20 D5-0.45 NS that was running at 125 mL/hr was increased to 175 mL/hr per Dr. Cooney at 1322, unable to titrate on MAR, pharmacy aware
--- NOTE | 2022-12-24 15:00 | PN_ITS ---
Subjective Subjective Patient seen and examined. She was admitted in the early hours of this morning with a complaint of nausea and vomiting and found to be in DKA. She has been managed for DKA and is on insulin drip. Patient has no complaints this morning. Her nausea and vomiting have resolved. She denied any abdominal pain, fever chills or any other symptoms. Review of systems otherwise negative. She has remained hemodynamically stable. Objective Data Objective Data Vital Signs: Vital Signs Temp Pulse Resp BP Pulse Ox O2 Del Method 98.2 F 112 H 18 134/82 H 99 Room Air 12/24/22 12:00 12/24/22 14:00 12/24/22 14:00 12/24/22 14:00 12/24/22 14:00 12/24/22 14:00 Oxygen Delivery Method Room Air Weight: 125 lb 14.143 oz Body Mass Index (BMI) 25.4 Intake & Output: Intake and Output for Last 24 Hours 12/22/22 12/23/22 12/24/22 23:59 23:59 23:59 Intake Total 2750.52 / 2750.52 Output Total 1350 / 1350 Balance 1400.52 / 1400.52 Lab / Micro Data Result Diagrams: 12/24/22 00:15 12/24/22 12:45 Labs: Laboratory Results - last 24 hr 12/24/22 00:00: Urine Color Yellow, Urine Clarity Clear, Urine pH 6.0, Ur Specific [place] 1.025, Urine Protein 100 H, Urine Glucose (UA) 1000 H, Urine Ketones 150 A*, Urine Occult Blood 50 H, Urine Nitrite Positive H, Urine Bilirubin Negative, Urine Urobilinogen Normal, Ur Leukocyte Esterase Negative, Urine RBC 0-5 SEEN, Urine WBC 0 SEEN, Ur Squamous Epith Cells 0 SEEN, Urine Ba cteria 1+, Hyaline Casts 10-25 SEEN, Urine Mucus 1+ 12/24/22 00:15: WBC 21.4 H, RBC 5.62 H, Hgb 15.6 H, Hct 48.4 H, MCV 86.1, MCH 27.8, MCHC 32.2, RDW Std Deviation 40.8, RDW Coeff of Marilynn 13.4, Plt Count TNP, MPV 10.2, Immature Gran % (Auto) 0.900, Neut % (Auto) 93.0 H, Lymph % (Auto) 3.4 L, [place] % (Auto) 2.4, Eos % (Auto) 0.0, Baso % (Auto) 0.3, Absolute Neuts (auto) 19.9 H, Absolute Lymphs (auto) 0.73 L, Nucleated RBC % 0, Platelet Estimate ADEQUATE 12/24/22 00:15: Sodium 134 L, Potassium 4.3, Chloride 97 L, Carbon Dioxide 10.0 L, Anion Gap 27 H, BUN 14, Creatinine 1.43 H, Estim Creat Clear Calc 55.74, Est GFR (MDRD) Af Amer 58 L, Est GFR (MDRD) Non-Af 48 L, BUN/Creatinine Ratio 9.8 L, Glucose 595 H*, Calcium 10.0, Phosphorus 4.2, Magnesium 2.3, Total Bilirubin 0.60, AST 12 L, ALT 18, Alkaline Phosphatase 130 H, Total Protein 9.0 H, Albumin 4.7, Globulin 4.3 H, Albumin/Globulin Ratio 1.1 12/24/22 00:15: Acetone Level SMALL H 12/24/22 00:15: Serum , Qual NEGATIVE 12/24/22 00:15: Sodium Cancelled, Potassium Cancelled, Chloride Cancelled, Carbon Dioxide Cancelled, Anion Gap Cancelled, BUN Cancelled, Creatinine Cancelled, Estim Creat Clear Calc Cancelled, Est GFR (MDRD) Af Amer Cancelled, Est GFR (MDRD) Non-Af Cancelled, BUN/Creatinine Ratio Cancelled, Glucose Cancelled, Calcium Cancelled 12/24/22 00:24: POC Glucose > 500 H* 12/24/22 01:26: POC Glucose > 500 H* 12/24/22 02:27: POC Glucose > 500 H* 12/24/22 03:20: Glucose 604 H* 12/24/22 03:22: POC Glucose > 500 H* 12/24/22 04:37: POC Glucose 434 H 12/24/22 05:55: POC Glucose 388 H 12/24/22 07:01: POC Glucose 325 H 12/24/22 08:05: POC Glucose 301 H 12/24/22 08:28: Sodium 136, Potassium 4.3, Chloride 115 H, Carbon Dioxide 4.0 L* , Anion Gap 17 H, BUN 12, Creatinine 1.01, Estim Creat Clear Calc 77.42, Est GFR (MDRD) Af Amer 86, Est GFR (MDRD) Non-Af 71, BUN/Creatinine Ratio 11.9, Glucose 315 H, Calcium 8.8 12/24/22 09:14: POC Glucose 298 H 12/24/22 09:55: Urine Color Yellow, Urine Clarity Sl. Cloudy, Urine pH 5.0, Ur Specific [place] 1.020, Urine Protein 30 H, Urine Glucose (UA) 1000 H, Urine Ketones 150 A*, Urine Occult Blood 25 H, Urine Nitrite Negative, Urine Bilirubin Negative, Urine Urobilinogen Normal, Ur Leukocyte Esterase Negative, Urine RBC 0-5 SEEN, Urine WBC 0 SEEN, Ur Squamous Epith Cells 0-5 SEEN, Urine Bacteria 0 SEEN, Urine Mucus 0 SEEN 12/24/22 10:35: POC Glucose 282 H 12/24/22 11:30: POC Glucose 224 H 12/24/22 12:29: POC Glucose 204 H 12/24/22 12:45: Sodium 142, Potassium 3.5, Chloride 118 H, Carbon Dioxide 12.0 L , Anion Gap 12, BUN 10, Creatinine 0.95, Estim Creat Clear Calc 82.31, Est GFR (MDRD) Af Amer 93, Est GFR (MDRD) Non-Af 76, BUN/Creatinine Ratio 10.5, Glucose 182 H, Calcium 9.2, Total Bilirubin 0.40, AST 4 L, ALT 14, Alkaline Phosphatase 117, Total Protein 8.1, Albumin 4.0, Globulin 4.1, Albumin/Globulin Ratio 1.0 12/24/22 12:45: Urine Color Yellow, Urine Clarity Clear, Urine pH 6.0, Ur Specific [place] 1.020, Urine Protein 100 H, Urine Glucose (UA) 1000 H, Urine Ketones 150 A*, Urine Occult Blood 25 H, Urine Nitrite Negative, Urine Bilirubin Negative, Urine Urobilinogen Normal, Ur Leukocyte Esterase Negative, Urine RBC 0-5 SEEN, Urine WBC 0 SEEN, Ur Squamous Epith Cells 0-5 SEEN, Urine Bacteria RARE, Fine Granular Casts 0-5 SEEN, Urine Mucus 0 SEEN 12/24/22 13:17: POC Glucose 161 H 12/24/22 14:20: POC Glucose 148 H ABG Data ABG results: ABG 12/24/22 00:24 Specimen Type LUIS VBG pH 7.12 L* VBG pO2 57 H VBG HCO3 6 L VBG Total CO2 6 L VBG O2 Sat (Calc) 80 H VBG Base Excess -24 L POC Mix VBG pCO2 Pt Tmp 17.7 L* Crit Call To/Read Back Yes Radiography Diagnostic Testing: Radiology Impression Abdomen/Pelvis CT 12/24/22 01:08 IMPRESSION: Negative unenhanced CT abdomen and pelvis. Electronically Signed: Jesus Mcarthur MD at 2:58 EDT , Rhythm Strip Rhythm Strip: Sinus Tach Rate: 146 Ectopy: None Physical Exam Const alert, oriented x3 and no apparent distress General Appearance: cooperative HEENT normocephalic and head/scalp atraumatic Mouth: dry mucous membranes Eyes PERRL and EOMs intact bilaterally Neck no lymphadenopathy, supple and no JVD Lymph Lymphatic: no lymphadenopathy noted and no lymphedema noted Resp normal respiratory effort, normal air movement and clear to auscultation bilaterally Cardio regular rate, regular rhythm, S1 normal heart sound, S2 normal heart sound and no murmurs Palpation: normal PMI GI normal to inspection, nondistended, normoactive bowel sounds, soft to palpation and non-tender Extremity normal capillary refill and no clubbing, cyanosis or edema Skin General Skin Exam: no breakdown Neuro CN's II-XII intact bilaterally, no focal motor deficits and no sensory deficits noted Coordination / Balance: [id number] test normal Motor Exam: strength 5/5 throughout Psych thought process normal and cooperative Appearance: appropriate Assessment & Plan Assessment/Plan (1) DKA, type 1: (2) FRANKLIN (acute kidney injury): (3) UTI (urinary tract infection): PLAN: Plan #DKA in a known type 1 diabetic * Was admitted in DKA with elevated anion gap and elevated glucose. She says her sugar has sometimes been running high at home. * Currently on insulin drip. Being hydrated aggressively with IV fluids. * Critical care consulted. BMP every 4 of the insulin and gap closes. Continue keeping patient NPO. * Continue insulin drip per DKA protocol. * Once anion gap closes x 2, will switch to subcu insulin at home dose and started diet * CT of the abdomen and pelvis done o/a of abdominal pain was normal. * Patient complained of urinary symptoms but urinalysis showed no evidence of UTI with rare bacteria. Will monitor. ?UTI * Patient complained of urinary symptoms. However leukocyte esterase was negative and she had no bacteria in her urine * She was started on IV ceftriaxone in the ED. Urine cultures ordered. * DVT prophylaxis: Lovenox Charges/Coding Visit Charges Inpatient E&M: 65794 Subs Hosp L3
[2022-12-24 15:34] LABS: Bedside Glucose 131 mg/dL (74-106)
[2022-12-24 15:49] LABS: Mucous, Urine 0 SEEN /hpf (<or=2+); White Blood Cells 0 SEEN /hpf (0-5)
--- NOTE | 2022-12-24 15:52 | CASEMGMT ---
Addendum entered by Bren Chery 12/24/22 16:08: TC to [facility] to see when pt last received a Dexcom transmitter and sensors. Spoke with pharmacy who states that this is ordered and filled and pt can poultry picker at any time. Original Note: SARA NICOLE Assessment: Face to Face with pt for initial transition planning/care coordination assessment. SARA NICOLE introduced self and role at [facility], pt voices understanding and consents to assessment. Pt is A/O x4 and answers all questions appropriately at this time. Pt lying in bed, nurse just left room. Care providers, pharmacy, and demographics verified/updated. Admitting Dx: DKA PCP:Mckinley Specialists: maria dolores Chow Preferred Pharmacy: [facility] Insurance: [facility] Prescription Benefit: yes LNOK: Alla King, mother Living Arrangements: Pt lives with mother in a mobile home with 4 steps to enter. Pt reports she is I in ADL's and denies concerns at home. Transportation: Pt drives self or her mother drives her when the car is running. Pt states she has difficulty getting to her appts with d/t this. Made her aware that [facility] has transportation that would pick her up and take her home from the appt. Pt is interested in this. Pt has an upcoming appt on 12/26 at 10am but she is unsure if she will be dc'd by then. If she is, she is agreeable to the van being set up. She is also aware that she can contact her insurance company for transportation. DME/HHC/SNF: Pt statese she needs more novolog pens. She also states she lost her sensor for her dexcom and needs a new set up. Pt states her insulin pump is not working because the pods were not refilled d/t missing appts. Pt denies hx of HHC or SNF stays. Pt states no concerns with going home at time of dc. Discussed HHC for diabetic education, pt is not interested in this services. Discussed CCN and pt does express interest and is agreeable. Referral placed and notified nurse Jm. Pt states no further concerns/needs. CM to follow. Advised pt to ask CM if any further question/concerns/needs arise, voices understanding. Pt Goal: Home Plan: Home with CCN, will provide [facility] van information
[2022-12-24 15:59] LABS: Color, Urine Yellow (Yellow); Glucose, Dipstick 250 mg/dl (Normal); Leukocyte Esterase-Dipstick Negative /ul (Negative); Nitrite-Dipstick Negative (Negative); Occult Blood-Urine 150 /ul (Negative); Protein-Dipstick 100 mg/dl (Negative); Urine Clarity Sl. Cloudy (Clear); Urine Urobilinogen Normal (Normal)
[2022-12-24 16:00] LABS: Urine Bilirubin Dipstick 1 mg/dL (Negative)
[2022-12-24 16:01] LABS: Ketone-Dipstick 150 mg/dl (Negative)
[2022-12-24 16:03] LABS: Anion Gap 12 (5-15); BUN 10 mg/dL (7-18); BUN/Creat Ratio 10.2 RATIO (10-20); Calcium,Total 9.2 mg/dL (8.5-10.1); Chloride 116 mmol/L (98-107); Creatinine, Serum 0.98 mg/dL (0.55-1.02); EST Glomerular Filtration Rate 73 mL/min (>60); Est Glom Filt Rate - Afr Amer 89 mL/min (>60); Estimated Creatinine Clearance 79.79 ml/min; Glucose 132 mg/dL (74-106); Potassium 3.1 mmol/L (3.5-5.1); Sodium Level 142 mmol/L (136-145)
[2022-12-24 16:28] LABS: Bedside Glucose 103 mg/dL (74-106)
[2022-12-24 16:30] LABS: Bacteria RARE /hpf (None Seen); Red Blood Cells-Urine 5-10 SEEN /hpf (0-5); Squamous Epithelial Cells - UA 0-5 SEEN /hpf (5-10)
[2022-12-24] MEDS: Ondansetron 4 MG/2 ML Vial 2 MG IV ×2 (16:36→23:35)
[2022-12-24 17:53] LABS: Bedside Glucose 134 mg/dL (74-106)
[2022-12-24 19:15] LABS: Bedside Glucose 100 mg/dL (74-106)
[2022-12-24] MEDS: Acetaminophen 325 MG Tablet 650 MG PO (19:39)
[2022-12-24 20:24] LABS: Bedside Glucose 127 mg/dL (74-106)
[2022-12-24 21:06] LABS: Anion Gap 11 (5-15); BUN 11 mg/dL (7-18); BUN/Creat Ratio 12.8 RATIO (10-20); Calcium,Total 9.2 mg/dL (8.5-10.1); Chloride 115 mmol/L (98-107); Creatinine, Serum 0.86 mg/dL (0.55-1.02); EST Glomerular Filtration Rate 86 mL/min (>60); Est Glom Filt Rate - Afr Amer 104 mL/min (>60); Estimated Creatinine Clearance 90.92 ml/min; Glucose 139 mg/dL (74-106); Potassium 3.4 mmol/L (3.5-5.1); Sodium Level 142 mmol/L (136-145)
[2022-12-24 22:38] LABS: Bedside Glucose 137 mg/dL (74-106)
[2022-12-24 23:30] LABS: Bedside Glucose 164 mg/dL (74-106)
[2022-12-24 23:30] LABS: Bedside Glucose 165 mg/dL (74-106)
[2022-12-25] VITALS (25 sets, daily range): BP systolic 110–147; BP diastolic 67–98; PULSE 80–108; RESP 13–23; TEMP 36.1–36.5; O2SAT 99–100; BMI 26.6
[2022-12-25 00:44] LABS: Anion Gap 10 (5-15); BUN 10 mg/dL (7-18); BUN/Creat Ratio 12.4 RATIO (10-20); Calcium,Total 9.1 mg/dL (8.5-10.1); Chloride 114 mmol/L (98-107); Creatinine, Serum 0.81 mg/dL (0.55-1.02); EST Glomerular Filtration Rate 92 mL/min (>60); Est Glom Filt Rate - Afr Amer 111 mL/min (>60); Estimated Creatinine Clearance 96.54 ml/min; Glucose 152 mg/dL (74-106); Potassium 3.2 mmol/L (3.5-5.1); Sodium Level 141 mmol/L (136-145)
[2022-12-25 03:32] LABS: Bedside Glucose 139 mg/dL (74-106)
[2022-12-25 03:32] LABS: Bedside Glucose 160 mg/dL (74-106)
[2022-12-25 05:04] LABS: Bedside Glucose 134 mg/dL (74-106)
[2022-12-25 05:14] LABS: Absolute Neutrophil Count 12.2 X10^3/uL (2.0-7.7); Basophil# 0.02 X10^3/uL; Basophil% 0.1 % (0-1); Hematocrit 37.5 % (37-47); Lymphocyte % 7.7 % (19-41); Mean Corp Hgb Conc 34.7 g/dL (32-36); Mean Corpuscular Hgb 28.2 pg (27.0-32.0); Mean Corpuscular Volume 81.3 fL (81-99); Mean Platelet Vol. 8.9 fl (6.2-12.0); Monocyte# 0.89 X10^3/uL; Monocyte% 6.3 % (0-10); NRBC Flagged by Analyzer 0 % (0-5); Neutrophil # 12.18 X10^3/uL (2.7-7.7); Neutrophil % 85.5 % (47-70); Platelet Count 353 K/mm3 (150-450); RBC Distribution Width CV 13.4 % (11.6-14.6); RBC Distribution Width SD 38.9 fl (35.1-43.9); Red Blood Count 4.61 M/mm3 (4.2-5.4); White Blood Count 14.2 K/mm3 (4.4-11.0)
[2022-12-25 05:38] LABS: Anion Gap 9 (5-15); BUN 10 mg/dL (7-18); BUN/Creat Ratio 13.6 RATIO (10-20); Calcium,Total 8.7 mg/dL (8.5-10.1); Chloride 114 mmol/L (98-107); Creatinine, Serum 0.74 mg/dL (0.55-1.02); EST Glomerular Filtration Rate 102 mL/min (>60); Est Glom Filt Rate - Afr Amer 124 mL/min (>60); Estimated Creatinine Clearance 110.67 ml/min; Glucose 139 mg/dL (74-106); Sodium Level 142 mmol/L (136-145)
[2022-12-25] MEDS: Ondansetron 4 MG/2 ML Vial 2 MG IV ×3 (06:23→20:00)
[2022-12-25 06:37] LABS: Bedside Glucose 145 mg/dL (74-106)
[2022-12-25 07:51] LABS: Bedside Glucose 146 mg/dL (74-106)
[2022-12-25 07:51] LABS: Bedside Glucose 135 mg/dL (74-106)
[2022-12-25 07:51] LABS: Bedside Glucose 126 mg/dL (74-106)
[2022-12-25] MEDS: 0.9% Saline Lock 10 ML Syringe IV ×2 (08:03→13:59)
[2022-12-25] MEDS: Potassium Chloride Oral Tablet 20 MEQ 60 MEQ PO (08:12)
[2022-12-25 08:24] LABS: Bedside Glucose 132 mg/dL (74-106)
[2022-12-25 08:36] LABS: Anion Gap 9 (5-15); BUN 9 mg/dL (7-18); BUN/Creat Ratio 11.3 RATIO (10-20); Calcium,Total 9.3 mg/dL (8.5-10.1); Chloride 112 mmol/L (98-107); Creatinine, Serum 0.79 mg/dL (0.55-1.02); EST Glomerular Filtration Rate 94 mL/min (>60); Est Glom Filt Rate - Afr Amer 114 mL/min (>60); Estimated Creatinine Clearance 103.66 ml/min; Glucose 125 mg/dL (74-106); Potassium 2.7 mmol/L (3.5-5.1); Sodium Level 141 mmol/L (136-145)
[2022-12-25 09:20] LABS: Bedside Glucose 151 mg/dL (74-106)
[2022-12-25] MEDS: Ceftriaxone 1 GM/50 ML BAG IV (09:36)
[2022-12-25] MEDS: Enoxaparin 40 MG/0.4 ML Syringe SC (09:37)
--- NOTE | 2022-12-25 09:44 | CASEMGMT ---
Addendum entered by Ras Cooper 12/25/22 12:42: Per Yessica GUERRERO Heather, SARA, had questions re: what insulins pt was taking and devices she has been using. SARA NICOLE spoke w/Denisa who states she has spoken w/pt and obtained all info she needed. Denisa made aware pt reports needs script for more insulin pens @ home @ d/c. Original Note: SARA NICOLE NOTE: Pt remains on an insulin gtt and having intermittent nausea and will not be discharging home today. SARA NICOLE to room. Introduced self and role. Pt provided w/[facility] transportation information and also [facility] Van transportation. Pt made aware the Dexcom sensor and transmitter has been filled @ [facility] pharmacy and can be picked up any time. Pt states she is out of the Ultra fine/0.5 pen needles. She was made aware there are 5 refills remaining on the script that was sent to [facility] retail pharmacy when she was last discharged from the hospital. She states she has no transportation right now d/t they do not have a car currently and she is not able to get to [facility] to pick these up. She states [facility] is w/in walking distance and would like that script to be transferred to [facility]. SARA NICOLE placed to [facility] pharmacy and requested they call [facility] Retail pharmacy to have script/refills on 0.5/Ultra fine needles transferred to [facility]. Pt made aware. Call placed to Dr Chow's office to reschedule appt. No answer. VM left. Awaiting return call. Pt may need [facility] Van transportation @ discharge. Pt states she is almost out of her insulin pens and will need new script @ discharge. Melissa MEAD RN, CM
[2022-12-25 09:48] LABS: Bacteria 0 SEEN /hpf (None Seen); Mucous, Urine 0 SEEN /hpf (<or=2+)
[2022-12-25 09:53] LABS: Color, Urine Yellow (Yellow); Glucose, Dipstick Normal (Normal); Ketone-Dipstick 5 mg/dl (Negative); Leukocyte Esterase-Dipstick 25 /ul (Negative); Nitrite-Dipstick Negative (Negative); Occult Blood-Urine 150 /ul (Negative); Protein-Dipstick 30 mg/dl (Negative); Specific Gravity, Urine 1.015 (1.002-1.030); Urine Bilirubin Dipstick Negative (Negative); Urine Clarity Sl. Cloudy (Clear); Urine Urobilinogen Normal (Normal)
--- NOTE | 2022-12-25 10:22 | PCM.PN.INT ---
Assessment & Plan Assessment/Plan (1) DKA, type 1: PLAN: Patient is nearly out of DKA, bicarbonate is now 20, urine ketones still trace positive, remains on insulin drip at 4 units an hour and D10 W with 40 mEq of K per liter at 200 cc/h with glucoses in the 130s to 180s range. (2) FRANKLIN (acute kidney injury): PLAN: Resolved (3) UTI (urinary tract infection): PLAN: Resolved, ready to to p.o. antibiotics per hospitalist (4) Presence of insulin pump: PLAN: We will send for her home insulin pump to help manage the transition from IV insulin today. Delay in obtaining her insulin pump will likely increase her length of stay. We will ask assistance from child protective services social worker to. (5) Cannabis use in remission: PLAN: Retrospective urine drug screen was obtained to determine whether her cannabis use is active or in remission. The patient admitted to me that she is still smoking more than once a day. Unfortunately, this is a major risk factor for her going forward since her cannabis related cyclic vomiting keeps her for taking p.o. enough to prevent hypoglycemia and makes it much more likely for her to slow back into DKA recurrently. - Immediate and complete cannabis cessation is imperative. - Substance abuse counseling will likely help. - It is to be stressed that cannabis has absolutely no medicinal role in her overall management, and in her particular situation, it is strongly detrimental to her health and the ability to manage her diabetes. If she has a medical marijuana card, it should be rescinded. (6) Anxiety and depression: PLAN: Should be closely followed by a behavioral health provider, and avoid prescription or nonprescription drugs that would adverse impact her diabetes management. PLAN: Plan As above. Critical care time spent with patient at bedside, review of documentation, lab results, radiology and other test results, discussion with colleagues and ancillary staff, clinical management of patient, and updating family if applicable, was 75 minutes. This time does not include any procedures, if performed. [place] [address]. Subjective Subjective sleeping, per RN report was arousable. Objective Data Objective Data 22 yo with recurrent DKA, resistant to usual hospital DKA insulin and fluid protocol. Improving on 4-6U insulin per hour since yesterday. Gap closed, HCO3 is 20+, and ready to change to SQ insulin and discontinue drip. It took large amounts of D10W, KCL to allow providing sufficient insulin dosing to resolve her ketoacidosis with insulin. Reviewing her past admission, her urine ketones remained 150, and her usual insulin dose may need to be higher but runs risk of severe hypoglycemia if she remains nauseous. Still vomiting up until last night, await breakfast results. Checking retrospective drug screen today, it is unusual for her to still vomit now that DKA metabolic abnormalities and FRANKLIN are resolved. UPT last admission was negative, will re-check a retrospective U tox screen; she was positive for cannabis last admission and this may represent cyclic vomiting due to chronic cannabis use. No other complaints. No asthma symptoms, not needing albuterol inhalers. Outpatient meds list Novolog (ins aspartate U-100) continuous via pump, plus 5 U SQ TID and glargine insulin (Basalglar) 15 U SQBID. She also has a Dexcom G6 sensor, transmitter, Freestyle Daniela 14 day sensor, urine ketone test, omnipod 5 G6 intro kit and pods (Gen 5), Bard Ultra-fine iliana pen needles. Patient does not have her pump, equipment or insulin here, will work with pt to get them here [place] so we can manage the transition all at once, rather than transitioning twice from hospital insulin to her usual pump. Major Risk factor for mortality was identified: cyclic vomiting from continued marijuana use may pose a life-threatening risk of hypoglycemia for this patient, if she keeps vomiting and unable to take sufficiently PO while on enough insulin to keep her out of DKA. She must therefore completely stop all cannabis use, permanently. This will be discussed with her and reinforced this admission, when she feels better and is more receptive. Vital Signs: Vital Signs Temp Pulse Resp BP Pulse Ox O2 Del Method 97.7 F L 108 H 13 116/73 99 Room Air 12/25/22 05:00 12/25/22 07:00 12/25/22 07:00 12/25/22 07:00 12/25/22 07:00 12/25/22 07:00 Oxygen Delivery Method Room Air Weight: 131 lb 13.383 oz Body Mass Index (BMI) 26.6 Intake & Output: Intake and Output for Last 24 Hours 12/23/22 12/24/22 12/25/22 23:59 23:59 23:59 Intake Total 3876.5700 / 3876.5700 1599.3725 / 1599.3725 Output Total 2049 / 2049 200 / 200 Balance 1826.5700 / 1826.5700 1399.3725 / 1399.3725 Lab / Micro Data Lab results narrative: Potassium is being supplemented continuously with 40 meq KCL per liter, continuing q4h BMPs. Insulin decreased to 4U per hr this AM while awaiting home insulin pump. Urine ketones have decreased fro 150 to 5 (not negative yet). UTI FRANKLIN and abnormal LFTs are resolved. In retrospect, is it likely that her vomiting contributed her DKA. U Tox ordered today from admission urine and/or serum samples. UPT Mg, Ca, phosphate ordered also. WBC increased; CXR ordered to r/o aspiration pneumonia, after patient's vomiting. Not coughing. Result Diagrams: 12/25/22 04:53 12/25/22 08:05 Labs: Laboratory Results - last 24 hr 12/24/22 09:55: Urine RBC 0-5 SEEN, Urine WBC 0 SEEN, Ur Squamous Epith Cells 0-5 SEEN, Urine Bacteria 0 SEEN, Urine Mucus 0 SEEN 12/24/22 10:35: POC Glucose 282 H 12/24/22 11:30: POC Glucose 224 H 12/24/22 12:29: POC Glucose 204 H 12/24/22 12:45: Sodium 142, Potassium 3.5, Chloride 118 H, Carbon Dioxide 12.0 L, Anion Gap 12, BUN 10, Creatinine 0.95, Estim Creat Clear Calc 82.31, Est GFR (MDRD) Af Amer 93, Est GFR (MDRD) Non-Af 76, BUN/Creatinine Ratio 10.5, Glucose 182 H, Calcium 9.2, Total Bilirubin 0.40, AST 4 L, ALT 14, Alkaline Phosphatase 117, Total Protein 8.1, Albumin 4.0, Globulin 4.1, Albumin/Globulin Ratio 1.0 12/24/22 12:45: Urine Color Yellow, Urine Clarity Clear, Urine pH 6.0, Ur Specific [place] 1.020, Urine Protein 100 H, Urine Glucose (UA) 1000 H, Urine Ketones 150 A*, Urine Occult Blood 25 H, Urine Nitrite Negative, Urine Bilirubin Negative, Urine Urobilinogen Normal, Ur Leukocyte Esterase Negative, Urine RBC 0-5 SEEN, Urine WBC 0 SEEN, Ur Squamous Epith Cells 0-5 SEEN, Urine Bacteria RARE, Fine Granular Casts 0-5 SEEN, Urine Mucus 0 SEEN 12/24/22 13:17: POC Glucose 161 H 12/24/22 14:20: POC Glucose 148 H 12/24/22 15:15: POC Glucose 131 H 12/24/22 15:35: Urine Color Yellow, Urine Clarity Sl. Cloudy, Urine pH 6.0, Ur Specific [place] 1.020, Urine Protein 100 H, Urine Glucose (UA) 250 H, Urine Ketones 150 A*, Urine Occult Blood 150 H, Urine Nitrite Negative, Urine Bilirubin 1 H, Urine Urobilinogen Normal, Ur Leukocyte Esterase Negative, Urine RBC 5-10 SEEN, Urine WBC 0 SEEN, Ur Squamous Epith Cells 0-5 SEEN, Urine Bacteria RARE, Urine Mucus 0 SEEN 12/24/22 15:40: Sodium 142, Potassium 3.1 L, Chloride 116 H, Carbon Dioxide 14.0 L, Anion Gap 12, BUN 10, Creatinine 0.98, Estim Creat Clear Calc 79.79, Est GFR (MDRD) Af Amer 89, Est GFR (MDRD) Non-Af 73, BUN/Creatinine Ratio 10.2, Glucose 132 H, Calcium 9.2 12/24/22 16:06: POC Glucose 103 12/24/22 17:33: POC Glucose 134 H 12/24/22 18:58: POC Glucose 100 12/24/22 20:04: POC Glucose 127 H 12/24/22 20:31: Sodium 142, Potassium 3.4 L, Chloride 115 H, Carbon Dioxide 16.0 L, Anion Gap 11, BUN 11, Creatinine 0.86, Estim Creat Clear Calc 90.92, Est GFR (MDRD) Af Amer 104, Est GFR (MDRD) Non-Af 86, BUN/Creatinine Ratio 12.8, Glucose 139 H, Calcium 9.2 12/24/22 21:09: POC Glucose 164 H 12/24/22 22:20: POC Glucose 137 H 12/24/22 23:11: POC Glucose 165 H 12/24/22 23:57: POC Glucose 160 H 12/25/22 00:04: Sodium 141, Potassium 3.2 L, Chloride 114 H, Carbon Dioxide 17.0 L, Anion Gap 10, BUN 10, Creatinine 0.81, Estim Creat Clear Calc 96.54, Est GFR (MDRD) Af Amer 111, Est GFR (MDRD) Non-Af 92, BUN/Creatinine Ratio 12.4, Glucose 152 H, Calcium 9.1 12/25/22 01:15: POC Glucose 139 H 12/25/22 03:25: POC Glucose 135 H 12/25/22 04:41: POC Glucose 134 H 12/25/22 04:53: WBC 14.2 H, RBC 4.61, Hgb 13.0, Hct 37.5, MCV 81.3 D, MCH 28.2, MCHC 34.7 D, RDW Std Deviation 38.9, RDW Coeff of Marilynn 13.4, Plt Count 353, MPV 8.9, Immature Gran % (Auto) 0.400, Neut % (Auto) 85.5 H, Lymph % (Auto) 7.7 L, [place] % (Auto) 6.3, Eos % (Auto) 0.0, Baso % (Auto) 0.1, Absolute Neuts (auto) 12.2 H, Absolute Lymphs (auto) 1.10, Nucleated RBC % 0 12/25/22 04:53: Sodium 142, Potassium 3.0 L, Chloride 114 H, Carbon Dioxide 19.0 L, Anion Gap 9, BUN 10, Creatinine 0.74, Estim Creat Clear Calc 110.67, Est GFR (MDRD) Af Amer 124, Est GFR (MDRD) Non-Af 102, BUN/Creatinine Ratio 13.6, Glucose 139 H, Calcium 8.7 12/25/22 05:05: POC Glucose 126 H 12/25/22 06:16: POC Glucose 145 H 12/25/22 07:05: POC Glucose 146 H 12/25/22 08:02: POC Glucose 132 H 12/25/22 08:05: Sodium 141, Potassium 2.7 L*, Chloride 112 H, Carbon Dioxide 20.0 L, Anion Gap 9, BUN 9, Creatinine 0.79, Estim Creat Clear Calc 103.66, Est GFR (MDRD) Af Amer 114, Est GFR (MDRD) Non-Af 94, BUN/Creatinine Ratio 11.3, Glucose 125 H, Calcium 9.3 12/25/22 09:02: POC Glucose 151 H 12/25/22 09:30: Urine Color Yellow, Urine Clarity Sl. Cloudy, Urine pH 6.0, Ur Specific [place] 1.015, Urine Protein 30 H, Urine Glucose (UA) Normal, Urine Ketones 5 H, Urine Occult Blood 150 H, Urine Nitrite Negative, Urine Bilirubin Negative, Urine Urobilinogen Normal, Ur Leukocyte Esterase 25 H ABG Data Interpretation: VBG result reviewed from admission. Radiography Diagnostic Testing: pending Rhythm Strip Rhythm Strip: Sinus Tach Rate: 108 Ectopy: None Physical Exam Narrative Patient sleeping, did not awaken when called, not cooperating with exam today. HEENT grossly unremarkable, mucous membranes moist Unlabored respirations Skin well hydrated, lesions unchanged from previously Neurologic is grossly nonfocal after observing the patient multiple positions lying in bed Charges/Coding Procedures Hospitalists Procedures: 25886 Critial Care 1st Hr
[2022-12-25 10:31] LABS: Bedside Glucose 141 mg/dL (74-106)
--- NOTE | 2022-12-25 10:35 | PN_ITS ---
Subjective Subjective Patient seen and examined. She had no active complaints. She had an uneventful night. Gap is closed. Review of systems otherwise negative. She has remained hemodynamically stable. Objective Data Objective Data Vital Signs: Vital Signs Temp Pulse Resp BP Pulse Ox O2 Del Method 97.0 F L 87 16 118/72 100 Room Air 12/25/22 08:00 12/25/22 10:00 12/25/22 10:00 12/25/22 10:00 12/25/22 10:00 12/25/22 10:00 Oxygen Delivery Method Room Air Weight: 131 lb 13.383 oz Body Mass Index (BMI) 26.6 Intake & Output: Intake and Output for Last 24 Hours 12/23/22 12/24/22 12/25/22 23:59 23:59 23:59 Intake Total 3876.5700 / 3876.5700 1599.3725 / 1599.3725 Output Total 2049 / 2049 200 / 200 Balance 1826.5700 / 1826.5700 1399.3725 / 1399.3725 Lab / Micro Data Result Diagrams: 12/25/22 04:53 12/25/22 08:05 Labs: Laboratory Results - last 24 hr 12/24/22 10:35: POC Glucose 282 H 12/24/22 11:30: POC Glucose 224 H 12/24/22 12:29: POC Glucose 204 H 12/24/22 12:45: Sodium 142, Potassium 3.5, Chloride 118 H, Carbon Dioxide 12.0 L , Anion Gap 12, BUN 10, Creatinine 0.95, Estim Creat Clear Calc 82.31, Est GFR (MDRD) Af Amer 93, Est GFR (MDRD) Non-Af 76, BUN/Creatinine Ratio 10.5, Glucose 182 H, Calcium 9.2, Total Bilirubin 0.40, AST 4 L, ALT 14, Alkaline Phosphatase 117, Total Protein 8.1, Albumin 4.0, Globulin 4.1, Albumin/Globulin Ratio 1.0 12/24/22 12:45: Urine Color Yellow, Urine Clarity Clear, Urine pH 6.0, Ur Specific [place] 1.020, Urine Protein 100 H, Urine Glucose (UA) 1000 H, Urine Ketones 150 A*, Urine Occult Blood 25 H, Urine Nitrite Negative, Urine Bilirubin Negative, Urine Urobilinogen Normal, Ur Leukocyte Esterase Negative, Urine RBC 0-5 SEEN, Urine WBC 0 SEEN, Ur Squamous Epith Cells 0-5 SEEN, Urine Bacteria RARE, Fine Granular Casts 0-5 SEEN, Urine Mucus 0 SEEN 12/24/22 13:17: POC Glucose 161 H 12/24/22 14:20: POC Glucose 148 H 12/24/22 15:15: POC Glucose 131 H 12/24/22 15:35: Urine Color Yellow, Urine Clarity Sl. Cloudy, Urine pH 6.0, Ur Specific [place] 1.020, Urine Protein 100 H, Urine Glucose (UA) 250 H, Urine Ketones 150 A*, Urine Occult Blood 150 H, Urine Nitrite Negative, Urine Bilirubin 1 H, Urine Urobilinogen Normal, Ur Leukocyte Esterase Negative, Urine RBC 5-10 SEEN, Urine WBC 0 SEEN, Ur Squamous Epith Cells 0-5 SEEN, Urine Bacteria RARE, Urine Mucus 0 SEEN 12/24/22 15:40: Sodium 142, Potassium 3.1 L, Chloride 116 H, Carbon Dioxide 14.0 L, Anion Gap 12, BUN 10, Creatinine 0.98, Estim Creat Clear Calc 79.79, Est GFR (MDRD) Af Amer 89, Est GFR (MDRD) Non-Af 73, BUN/Creatinine Ratio 10.2, Glucose 132 H, Calcium 9.2 12/24/22 16:06: POC Glucose 103 12/24/22 17:33: POC Glucose 134 H 12/24/22 18:58: POC Glucose 100 12/24/22 20:04: POC Glucose 127 H 12/24/22 20:31: Sodium 142, Potassium 3.4 L, Chloride 115 H, Carbon Dioxide 16.0 L, Anion Gap 11, BUN 11, Creatinine 0.86, Estim Creat Clear Calc 90.92, Est GFR (MDRD) Af Amer 104, Est GFR (MDRD) Non-Af 86, BUN/Creatinine Ratio 12.8, Glucose 139 H, Calcium 9.2 12/24/22 21:09: POC Glucose 164 H 12/24/22 22:20: POC Glucose 137 H 12/24/22 23:11: POC Glucose 165 H 12/24/22 23:57: POC Glucose 160 H 12/25/22 00:04: Sodium 141, Potassium 3.2 L, Chloride 114 H, Carbon Dioxide 17.0 L, Anion Gap 10, BUN 10, Creatinine 0.81, Estim Creat Clear Calc 96.54, Est GFR (MDRD) Af Amer 111, Est GFR (MDRD) Non-Af 92, BUN/Creatinine Ratio 12.4, Glucose 152 H, Calcium 9.1 12/25/22 01:15: POC Glucose 139 H 12/25/22 03:25: POC Glucose 135 H 12/25/22 04:41: POC Glucose 134 H 12/25/22 04:53: WBC 14.2 H, RBC 4.61, Hgb 13.0, Hct 37.5, MCV 81.3 D, MCH 28.2, MCHC 34.7 D, RDW Std Deviation 38.9, RDW Coeff of Marilynn 13.4, Plt Count 353, MPV 8.9, Immature Gran % (Auto) 0.400, Neut % (Auto) 85.5 H, Lymph % (Auto) 7.7 L, [place] % (Auto) 6.3, Eos % (Auto) 0.0, Baso % (Auto) 0.1, Absolute Neuts (auto) 12.2 H, Absolute Lymphs (auto) 1.10, Nucleated RBC % 0 12/25/22 04:53: Sodium 142, Potassium 3.0 L, Chloride 114 H, Carbon Dioxide 19.0 L, Anion Gap 9, BUN 10, Creatinine 0.74, Estim Creat Clear Calc 110.67, Est GFR (MDRD) Af Amer 124, Est GFR (MDRD) Non-Af 102, BUN/Creatinine Ratio 13.6, Glucose 139 H, Calcium 8.7 12/25/22 05:05: POC Glucose 126 H 12/25/22 06:16: POC Glucose 145 H 12/25/22 07:05: POC Glucose 146 H 12/25/22 08:02: POC Glucose 132 H 12/25/22 08:05: Sodium 141, Potassium 2.7 L*, Chloride 112 H, Carbon Dioxide 20.0 L, Anion Gap 9, BUN 9, Creatinine 0.79, Estim Creat Clear Calc 103.66, Est GFR (MDRD) Af Amer 114, Est GFR (MDRD) Non-Af 94, BUN/Creatinine Ratio 11.3, Glucose 125 H, Calcium 9.3 12/25/22 09:02: POC Glucose 151 H 12/25/22 09:30: Urine Color Yellow, Urine Clarity Sl. Cloudy, Urine pH 6.0, Ur Specific Center 1.015, Urine Protein 30 H, Urine Glucose (UA) Normal, Urine Ketones 5 H, Urine Occult Blood 150 H, Urine Nitrite Negative, Urine Bilirubin Negative, Urine Urobilinogen Normal, Ur Leukocyte Esterase 25 H 12/25/22 09:30: Ur Drug Screen Comment 12/25/22 10:12: POC Glucose 141 H Rhythm Strip Rhythm Strip: Sinus Tach Rate: 146 Ectopy: None Physical Exam Const alert, oriented x3 and no apparent distress General Appearance: cooperative HEENT normocephalic and head/scalp atraumatic Eyes PERRL and EOMs intact bilaterally Neck no lymphadenopathy, supple and no JVD Lymph Lymphatic: no lymphadenopathy noted and no lymphedema noted Resp normal respiratory effort, normal air movement and clear to auscultation bilaterally Cardio regular rate, regular rhythm, S1 normal heart sound, S2 normal heart sound and no murmurs Palpation: normal PMI GI normal to inspection, nondistended, normoactive bowel sounds, soft to palpation and non-tender Extremity normal capillary refill and no clubbing, cyanosis or edema Skin General Skin Exam: no breakdown Neuro CN's II-XII intact bilaterally, no focal motor deficits and no sensory deficits noted Coordination / Balance: [id number] test normal Motor Exam: strength 5/5 throughout Psych thought process normal and cooperative Appearance: appropriate Assessment & Plan Assessment/Plan (1) DKA, type 1: (2) FRANKLIN (acute kidney injury): (3) UTI (urinary tract infection): PLAN: Plan #DKA in a known type 1 diabetic * Resolving. Anion gap has closed. * still on insulin drip still on per critical care * to be transitioned to SQ insulin once she is off the insulin drip * ?UTI * Patient complained of urinary symptoms. However leukocyte esterase was negative and she had no bacteria in her urine * She was started on IV ceftriaxone in the ED. * Urine cultures pending * DVT prophylaxis: Lovenox Charges/Coding Visit Charges Inpatient E&M: 11118 Subs Hosp L2 * DVT prophylaxis: Lovenox
[2022-12-25 11:06] LABS: Amphetamine Urine VISTA NEGATIVE (<1000 ng/mL); Barbiturate Urine VISTA NEGATIVE (< 200 ng/mL); Benzodiazepine Urine VISTA NEGATIVE (< 200 ng/mL); Cocaine Urine VISTA NEGATIVE (< 300 ng/mL); Ecstacy Urine VISTA NEGATIVE (< 500 ng/mL); Methadone Urine VISTA NEGATIVE (< 300 ng/mL); PCP Urine VISTA NEGATIVE (< 25 ng/mL); THC Urine VISTA POSITIVE (< 50 ng/mL); Vista UDS pH Range 4
[2022-12-25 11:08] LABS: TCA Internal Control -Neg LINE = VALID (- VALID); TCA Urine Drug Screen Negative (<1000 ng/mL)
[2022-12-25 11:27] LABS: Red Blood Cells-Urine 0-5 SEEN /hpf (0-5); Squamous Epithelial Cells - UA 0-5 SEEN /hpf (5-10); White Blood Cells 0-5 SEEN /hpf (0-5)
[2022-12-25 11:28] LABS: Other Crystals-Urine 3+ /hpf (None Seen)
[2022-12-25 11:29] LABS: Yeast-Urine 1+ /hpf (None Seen)
[2022-12-25 11:33] LABS: Magnesium 1.9 mg/dL (1.6-2.6)
[2022-12-25 11:35] LABS: Bedside Glucose 174 mg/dL (74-106)
[2022-12-25 11:52] LABS: Phosphorus 0.5 mg/dL (2.5-4.9)
--- NOTE | 2022-12-25 11:55 | RAD_ITS ---
STUDY: X-RAY CHEST REASON FOR EXAM: Female, 22 years old. Vomiting. Evaluate for aspiration. TECHNIQUE: Single frontal view of the chest. COMPARISON: May 2020. FINDINGS: The lungs are clear and expanded. There is no demonstrated pleural abnormality. Normal size heart. Normal mediastinum and kaleigh. Normal visualized pulmonary arteries. Normal visualized aortic arch and descending thoracic aorta. Normal visualized thoracic spine. Normal visualized ribs, clavicles, and shoulders. No abnormality of the visualized soft tissue structures of the upper abdomen. RAD/Chest 1 View (Portable) IMPRESSION: No interval change. Normal chest. Electronically Signed: Michael Concepcion MD at 12:55 EDT ,
[2022-12-25 12:18] LABS: Internal QC Validated? YES +Cl - CLEAR BKGD; Pregnancy, Serum, hCG Quali. NEGATIVE Negative
[2022-12-25 12:42] LABS: Bedside Glucose 253 mg/dL (74-106)
[2022-12-25 13:48] LABS: Bedside Glucose 264 mg/dL (74-106)
[2022-12-25] MEDS: Sodium Chloride 19.25 MEQ in Dextrose 10%-Water 250 ML 100 MEQ IV (13:53)
[2022-12-25] MEDS: Acetaminophen 325 MG Tablet 650 MG PO (13:59)
[2022-12-25 14:27] LABS: Anion Gap 10 (5-15); BUN 8 mg/dL (7-18); BUN/Creat Ratio 10.9 RATIO (10-20); Calcium,Total 9.2 mg/dL (8.5-10.1); Chloride 111 mmol/L (98-107); Creatinine, Serum 0.73 mg/dL (0.55-1.02); EST Glomerular Filtration Rate 103 mL/min (>60); Est Glom Filt Rate - Afr Amer 125 mL/min (>60); Estimated Creatinine Clearance 112.18 ml/min; Glucose 173 mg/dL (74-106); Sodium Level 140 mmol/L (136-145)
[2022-12-25 14:49] LABS: Bedside Glucose 210 mg/dL (74-106)
[2022-12-25] MEDS: Insulin Glargine-YFGN 100 UNIT/ML Pen 15 UNIT SC ×2 (16:16→20:39)
[2022-12-25 16:30] LABS: Bedside Glucose 291 mg/dL (74-106)
[2022-12-25 16:31] LABS: Anion Gap 11 (5-15); BUN 7 mg/dL (7-18); BUN/Creat Ratio 9.2 RATIO (10-20); Calcium,Total 8.7 mg/dL (8.5-10.1); Chloride 108 mmol/L (98-107); Creatinine, Serum 0.76 mg/dL (0.55-1.02); EST Glomerular Filtration Rate 99 mL/min (>60); Est Glom Filt Rate - Afr Amer 120 mL/min (>60); Estimated Creatinine Clearance 107.75 ml/min; Glucose 304 mg/dL (74-106); Magnesium 2.9 mg/dL (1.6-2.6); Potassium 2.8 mmol/L (3.5-5.1); Sodium Level 139 mmol/L (136-145)
[2022-12-25 16:42] LABS: Phosphorus 1.2 mg/dL (2.5-4.9)
[2022-12-25] MEDS: Sodium Chloride 19.25 MEQ in Dextrose 10%-Water 250 ML 25 MEQ IV (19:34)
[2022-12-25 20:48] LABS: Anion Gap 12 (5-15); BUN 7 mg/dL (7-18); BUN/Creat Ratio 9.6 RATIO (10-20); Calcium,Total 8.5 mg/dL (8.5-10.1); Chloride 108 mmol/L (98-107); Creatinine, Serum 0.73 mg/dL (0.55-1.02); EST Glomerular Filtration Rate 104 mL/min (>60); Est Glom Filt Rate - Afr Amer 125 mL/min (>60); Estimated Creatinine Clearance 112.18 ml/min; Glucose 222 mg/dL (74-106); Magnesium 2.5 mg/dL (1.6-2.6); Sodium Level 140 mmol/L (136-145)
[2022-12-25 20:58] LABS: Bedside Glucose 221 mg/dL (74-106)
[2022-12-26] VITALS (17 sets, daily range): BP systolic 107–149; BP diastolic 69–96; PULSE 75–93; RESP 15–22; TEMP 36.2–36.6; O2SAT 96–99; BMI 26.5
[2022-12-26 00:25] LABS: Anion Gap 8 (5-15); BUN 6 mg/dL (7-18); BUN/Creat Ratio 9.5 RATIO (10-20); Calcium,Total 8.6 mg/dL (8.5-10.1); Chloride 109 mmol/L (98-107); Creatinine, Serum 0.63 mg/dL (0.55-1.02); EST Glomerular Filtration Rate 122 mL/min (>60); Est Glom Filt Rate - Afr Amer 147 mL/min (>60); Estimated Creatinine Clearance 129.99 ml/min; Glucose 148 mg/dL (74-106); Magnesium 2.4 mg/dL (1.6-2.6); Phosphorus 2.6 mg/dL (2.5-4.9); Potassium 2.9 mmol/L (3.5-5.1); Sodium Level 141 mmol/L (136-145)
[2022-12-26 02:21] LABS: Bedside Glucose 190 mg/dL (74-106)
[2022-12-26 02:21] LABS: Bedside Glucose 156 mg/dL (74-106)
[2022-12-26 02:21] LABS: Bedside Glucose 134 mg/dL (74-106)
[2022-12-26 02:21] LABS: Bedside Glucose 211 mg/dL (74-106)
[2022-12-26] MEDS: Ondansetron 4 MG/2 ML Vial 2 MG IV ×3 (02:29→20:47)
[2022-12-26] MEDS: Potassium Chloride 10mEq/100mL 10 MEQ/100 ML IV.SOLN. 100 MEQ IV BOLUS ×8 (02:39→11:43)
[2022-12-26] MEDS: Sodium Chloride 19.25 MEQ in Dextrose 10%-Water 250 ML 75 MEQ IV (02:47)
[2022-12-26 05:16] LABS: Anion Gap 7 (5-15); BUN 5 mg/dL (7-18); BUN/Creat Ratio 8.2 RATIO (10-20); Calcium,Total 8.2 mg/dL (8.5-10.1); Chloride 111 mmol/L (98-107); Creatinine, Serum 0.61 mg/dL (0.55-1.02); EST Glomerular Filtration Rate 127 mL/min (>60); Est Glom Filt Rate - Afr Amer 154 mL/min (>60); Estimated Creatinine Clearance 134.25 ml/min; Glucose 129 mg/dL (74-106); Magnesium 2.2 mg/dL (1.6-2.6); Phosphorus 1.9 mg/dL (2.5-4.9); Potassium 2.7 mmol/L (3.5-5.1); Sodium Level 142 mmol/L (136-145)
[2022-12-26] MEDS: Sodium Chloride 19.25 MEQ in Dextrose 10%-Water 250 ML 100 MEQ IV (05:51)
--- NOTE | 2022-12-26 08:01 | CASEMGMT ---
Late entry for 12/25/22- Received tc from 's office, pt appt rescheduled for January 13 at 11:45am. Placed on dc plan.
[2022-12-26 08:20] LABS: Bedside Glucose 176 mg/dL (74-106)
[2022-12-26 08:20] LABS: Bedside Glucose 131 mg/dL (74-106)
[2022-12-26 08:20] LABS: Bedside Glucose 127 mg/dL (74-106)
--- NOTE | 2022-12-26 08:26 | PCM.PN.INT ---
Assessment & Plan Assessment/Plan (1) Cannabis hyperemesis syndrome concurrent with and due to cannabis abuse: PLAN: Discussed with patient today with changes as noted above. She is motivated to quit completely. This is also reinforced by her ICU nurse. Continue Zofran as needed, however patient finds it fairly ineffective (2) Type I diabetes mellitus: QUALIFIERS: Diabetes mellitus complication status: with hyperglycemia Qualified Code(s): E10.65 - Type 1 diabetes mellitus with hyperglycemia PLAN: Discussed with hospitalist. Patient is switching to glargine and lispro at her usual dose with a medium dose sliding scale, insulin drip and D10 are being discontinued. Her insulin pump is unavailable; she never picked it up apparently it was only available on the condition that she see her scrum product owner, which she has not done because of transportation issues. [employer] has arranged for transportation funding as needed visits. Her insurance covers that. Patient was informed of the services available to her so that she can both tow picker her equipment, medications, and attend her appointments on schedule. She seen motivated to do so. (3) UTI (urinary tract infection): PLAN: Resolved, ready to to p.o. antibiotics per hospitalist (4) Hypophosphatemia: PLAN: Likely due to hypokalemia fluid and electrolyte shifts. Renal function is normal, phosphate is being supplemented again today. She did achieve a normal level after yesterday morning. She cannot take milk, will try other dairy products per nursing. (5) Hypokalemia: PLAN: Supplementing. (6) DKA, type 1: PLAN: DKA is resolved. (7) FRANKLIN (acute kidney injury): PLAN: Resolved (8) Presence of insulin pump: PLAN: Patient does not have this device after all (9) Anxiety and depression: PLAN: Should be closely followed by a behavioral health provider, and avoid prescription or nonprescription drugs that would adverse impact her diabetes management. PLAN: Plan As above. Critical care time spent with patient at bedside, review of documentation, lab results, radiology and other test results, discussion with colleagues and ancillary staff, clinical management of patient, and updating family if applicable, was 40 minutes. [place] [address]. Subjective Subjective Patient feels better is more awake alert today, able to participate in a conversation. Has some fevers and sweats, still having nausea constantly and vomited last night, is on the verge of vomiting this morning. No dyspnea, still not taking much p.o., taking clears. She admitted to using CBD brownies and edibles on a regular basis. Objective Data Objective Data Persistent vomiting after 2 days of resolution of DKA is much more consistent with cannabis related hyperemesis. She stated she does not smoke pot but takes CBD Gummies/brownies on a regular basis, and that all family members also use marijuana products. She was told that marijuana could potentially be fatal to her because of the hyperemesis, making it much more difficult to prevent and treat hypoglycemic episodes if she is unable to take well p.o. She seemed to understand and is motivated to quit marijuana product use. The patient was seen and examined at the bedside this morning. Events from the last 24 hours have been reviewed. Responded to ICU calls every 4 hours overnight for blood glucose levels and D5 10 W drip titration. The patient's most recent labs microbiology and imaging have all been personally reviewed. Potassium and phosphate being supplemented. The case was discussed on ICU interdisciplinary rounds. Overnight: Stable, no hyper or hypoglycemia Pertinent events include: Continued vomiting episodes with dry heaves and bilious fluid Vital Signs: Vital Signs Temp Pulse Resp BP Pulse Ox O2 Del Method 97.1 F L 93 17 137/90 H 99 Room Air 12/26/22 08:00 12/26/22 08:00 12/26/22 08:00 12/26/22 08:00 12/26/22 08:00 12/26/22 08:00 Oxygen Delivery Method Room Air Weight: 131 lb 13.383 oz Body Mass Index (BMI) 26.5 Intake & Output: Intake and Output for Last 24 Hours 12/24/22 12/25/22 12/26/22 23:59 23:59 23:59 Intake Total 3876.5700 / 3876.5700 3284.3933 / 3284.3933 1153.2075 / 1153.2075 Output Total 2049 / 2049 200 / 200 0 / 0 Balance 1826.5700 / 1826.5700 3084.3933 / 3084.3933 1153.2075 / 1153.2075 Lab / Micro Data Attestation: I reviewed the patient's lab results. Lab results narrative: hypophosphatemia noted and supplemented. Potassium supplementation is ongoing. WBC decreasing. Result Diagrams: 12/25/22 04:53 12/26/22 04:35 Labs: Laboratory Results - last 24 hr 12/25/22 08:05: Sodium 141, Potassium 2.7 L*, Chloride 112 H, Carbon Dioxide 20.0 L, Anion Gap 9, BUN 9, Creatinine 0.79, Estim Creat Clear Calc 103.66, Est GFR (MDRD) Af Amer 114, Est GFR (MDRD) Non-Af 94, BUN/Creatinine Ratio 11.3, Glucose 125 H, Calcium 9.3 12/25/22 09:02: POC Glucose 151 H 12/25/22 09:30: Urine Color Yellow, Urine Clarity Sl. Cloudy, Urine pH 6.0, Ur Specific [place] 1.015, Urine Protein 30 H, Urine Glucose (UA) Normal, Urine Ketones 5 H, Urine Occult Blood 150 H, Urine Nitrite Negative, Urine Bilirubin Negative, Urine Urobilinogen Normal, Ur Leukocyte Esterase 25 H, Urine RBC 0-5 SEEN, Urine WBC 0-5 SEEN, Ur Squamous Epith Cells 0-5 SEEN, Other Crystals 3+, Urine Bacteria 0 SEEN, Urine Mucus 0 SEEN, Urine Yeast 1+ 12/25/22 09:30: Tricyclics Screen Negative, Ur Drug Screen Comment 12/25/22 09:30: Urine Opiates Screen NEGATIVE, Urine Methadone Screen NEGATIVE, Ur Barbiturates Screen NEGATIVE, Ur Phencyclidine Scrn NEGATIVE, Ur Amphetamines Screen NEGATIVE, MDMA (Ecstasy) Screen NEGATIVE, U Benzodiazepines Scrn NEGATIVE, Urine Cocaine Screen NEGATIVE, U Cannabinoids Screen POSITIVE H, Ur Drug Screen Comment 12/25/22 10:12: POC Glucose 141 H 12/25/22 11:15: Magnesium 1.9 12/25/22 11:15: Phosphorus 0.5 L* 12/25/22 11:15: Serum , Qual NEGATIVE 12/25/22 11:15: Sodium 140, Potassium 3.0 L, Chloride 111 H, Carbon Dioxide 19.0 L, Anion Gap 10, BUN 8, Creatinine 0.73, Estim Creat Clear Calc 112.18, Est GFR (MDRD) Af Amer 125, Est GFR (MDRD) Non-Af 103, BUN/Creatinine Ratio 10.9, Glucose 173 H, Calcium 9.2 12/25/22 11:16: POC Glucose 174 H 12/25/22 12:24: POC Glucose 253 H 12/25/22 13:29: POC Glucose 264 H 12/25/22 14:31: POC Glucose 210 H 12/25/22 16:10: Sodium 139, Potassium 2.8 L, Chloride 108 H, Carbon Dioxide 20.0 L, Anion Gap 11, BUN 7, Creatinine 0.76, Estim Creat Clear Calc 107.75, Est GFR (MDRD) Af Amer 120, Est GFR (MDRD) Non-Af 99, BUN/Creatinine Ratio 9.2 L, Glucose 304 H, Calcium 8.7, Magnesium 2.9 H 12/25/22 16:10: Phosphorus 1.2 L 12/25/22 16:11: POC Glucose 291 H 12/25/22 18:06: POC Glucose 221 H 12/25/22 20:10: Sodium 140, Potassium 3.0 L, Chloride 108 H, Carbon Dioxide 20.0 L, Anion Gap 12, BUN 7, Creatinine 0.73, Estim Creat Clear Calc 112.18, Est GFR (MDRD) Af Amer 125, Est GFR (MDRD) Non-Af 104, BUN/Creatinine Ratio 9.6 L, Glucose 222 H, Calcium 8.5, Phosphorus 2.0 L, Magnesium 2.5 12/25/22 20:13: POC Glucose 211 H 12/25/22 21:50: POC Glucose 190 H 12/26/22 00:00: Sodium 141, Potassium 2.9 L, Chloride 109 H, Carbon Dioxide 24.0, Anion Gap 8, BUN 6 L, Creatinine 0.63, Estim Creat Clear Calc 129.99, Est GFR (MDRD) Af Amer 147, Est GFR (MDRD) Non-Af 122, BUN/Creatinine Ratio 9.5 L, Glucose 148 H, Calcium 8.6, Phosphorus 2.6, Magnesium 2.4 12/26/22 00:03: POC Glucose 156 H 12/26/22 01:56: POC Glucose 134 H 12/26/22 04:09: POC Glucose 131 H 12/26/22 04:35: Sodium 142, Potassium 2.7 L*, Chloride 111 H, Carbon Dioxide 24.0, Anion Gap 7, BUN 5 L, Creatinine 0.61, Estim Creat Clear Calc 134.25, Est GFR (MDRD) Af Amer 154, Est GFR (MDRD) Non-Af 127, BUN/Creatinine Ratio 8.2 L, Glucose 129 H, Calcium 8.2 L, Phosphorus 1.9 L, Magnesium 2.2 12/26/22 06:21: POC Glucose 176 H 12/26/22 07:58: POC Glucose 127 H Micro: Microbiology 12/24/22 00:00 Urine, Clean Catch Urine Culture - Preliminary Mixed Gram Positive Organisms Radiography Diagnostic Testing: Radiology Impression Chest X-Ray 12/25/22 11:55 IMPRESSION: No interval change. Normal chest. Electronically Signed: Michael Concepcion MD at 12:55 EDT , Rhythm Strip Rhythm Strip: Sinus Tach Rate: 108 Ectopy: None Physical Exam Narrative Well-developed well-nourished no acute distress, awake and alert today, conversant. HEENT: Mucous membranes moist. Chest is clear bilaterally with no wheezes rales or rhonchi, no cough. Heart normal S1-S2 not tachycardic no murmurs rubs or gallops. Abdomen is soft, mild tenderness in the epigastrium, no organomegaly distention or mass. Extremities have no clubbing cyanosis. Mild puffiness but no pitting edema. Neuro is grossly nonfocal, no tremor. Mood is improved today Skin is warm and dry Charges/Coding Procedures Hospitalists Procedures: 54999 Critial Care 1st Hr
[2022-12-26] MEDS: 0.9% Saline Lock 10 ML Syringe IV (08:27)
[2022-12-26] MEDS: Ceftriaxone 1 GM/50 ML BAG IV (09:17)
[2022-12-26] MEDS: Dext 5%-0.45% NS 1,000 ML 75 ML IV (09:17)
[2022-12-26] MEDS: Insulin Glargine-YFGN 100 UNIT/ML Pen 15 UNIT SC ×2 (09:19→20:47)
[2022-12-26] MEDS: Enoxaparin 40 MG/0.4 ML Syringe SC (09:19)
--- NOTE | 2022-12-26 09:25 | CASEMGMT ---
Addendum entered by Ras Cooper 12/26/22 16:16: Pt made aware of appt rescheduled w/Dr Chow and that [facility] van transp arranged to pick her up to take her to the appt. She voices appreciation and denies further d/c planning needs at this time. Original Note: SARA NICOLE NOTE: [facility] transportation arranged to pick pt up @ her home 01/13 @ 11:15 AM to transport pt to her appt with Dr Chow @ 11:45 AM. Info entered into pt's discharge plan. Will notify pt of appt date/time and transportation arrangements. Melissa MEAD RN, CM
--- NOTE | 2022-12-26 10:10 | CASEMGMT ---
Social Work Physician requested the Ariel from [facility] speak w/pt, SW let Ariel know. DEV Long
[2022-12-26] MEDS: Insulin Lispro 100 UNIT/ML INSULN.PEN SC ×5 (11:49→20:52)
[2022-12-26 11:57] LABS: Bacteria 0 SEEN /hpf (None Seen); Mucous, Urine 0 SEEN /hpf (<or=2+); Red Blood Cells-Urine 0 SEEN /hpf (0-5); Squamous Epithelial Cells - UA 0 SEEN /hpf (5-10); White Blood Cells 0 SEEN /hpf (0-5)
[2022-12-26 11:58] LABS: Color, Urine Yellow (Yellow); Glucose, Dipstick 1000 mg/dl (Normal); Leukocyte Esterase-Dipstick Negative /ul (Negative); Nitrite-Dipstick Negative (Negative); Occult Blood-Urine Negative /ul (Negative); Protein-Dipstick Negative (Negative); Urine Bilirubin Dipstick Negative (Negative); Urine Clarity Sl. Cloudy (Clear); Urine Urobilinogen Normal (Normal); Urine pH 6.5 (5.0 - 8.0)
[2022-12-26 12:05] LABS: Bedside Glucose 307 mg/dL (74-106)
[2022-12-26 12:07] LABS: Ketone-Dipstick 150 mg/dl (Negative)
--- NOTE | 2022-12-26 12:32 | PN_ITS ---
Subjective Subjective Patient seen and examined. She had no complaints. She had an uneventful night and review of systems otherwise negative. She has been switched to subcu insulin Lantus. Patient was apparently prescribed an insulin pump at her last visit but had not picked it up for her pharmacy yet, as she said she thought it would be delivered to her. Review of systems is otherwise negative. Objective Data Objective Data Vital Signs: Vital Signs Temp Pulse Resp BP Pulse Ox O2 Del Method 97.1 F L 82 20 H 124/77 H 98 Room Air 12/26/22 08:00 12/26/22 11:00 12/26/22 11:00 12/26/22 11:00 12/26/22 11:00 12/26/22 11:00 Oxygen Delivery Method Room Air Weight: 131 lb 13.383 oz Body Mass Index (BMI) 26.5 Intake & Output: Intake and Output for Last 24 Hours 12/24/22 12/25/22 12/26/22 23:59 23:59 23:59 Intake Total 3876.5700 / 3876.5700 3284.3933 / 3284.3933 2080.2875 / 2080.2875 Output Total 2049 / 2049 200 / 200 0 / 0 Balance 1826.5700 / 1826.5700 3084.3933 / 3084.3933 2080.2875 / 2080.2875 Lab / Micro Data Result Diagrams: 12/25/22 04:53 12/26/22 04:35 Labs: Laboratory Results - last 24 hr 12/25/22 11:15: Sodium 140, Potassium 3.0 L, Chloride 111 H, Carbon Dioxide 19.0 L, Anion Gap 10, BUN 8, Creatinine 0.73, Estim Creat Clear Calc 112.18, Est GFR (MDRD) Af Amer 125, Est GFR (MDRD) Non-Af 103, BUN/Creatinine Ratio 10.9, Glucose 173 H, Calcium 9.2 12/25/22 12:24: POC Glucose 253 H 12/25/22 13:29: POC Glucose 264 H 12/25/22 14:31: POC Glucose 210 H 12/25/22 16:10: Sodium 139, Potassium 2.8 L, Chloride 108 H, Carbon Dioxide 20.0 L, Anion Gap 11, BUN 7, Creatinine 0.76, Estim Creat Clear Calc 107.75, Est GFR (MDRD) Af Amer 120, Est GFR (MDRD) Non-Af 99, BUN/Creatinine Ratio 9.2 L, Glucose 304 H, Calcium 8.7, Magnesium 2.9 H 12/25/22 16:10: Phosphorus 1.2 L 12/25/22 16:11: POC Glucose 291 H 12/25/22 18:06: POC Glucose 221 H 12/25/22 20:10: Sodium 140, Potassium 3.0 L, Chloride 108 H, Carbon Dioxide 20.0 L, Anion Gap 12, BUN 7, Creatinine 0.73, Estim Creat Clear Calc 112.18, Est GFR (MDRD) Af Amer 125, Est GFR (MDRD) Non-Af 104, BUN/Creatinine Ratio 9.6 L, Glucose 222 H, Calcium 8.5, Phosphorus 2.0 L, Magnesium 2.5 12/25/22 20:13: POC Glucose 211 H 12/25/22 21:50: POC Glucose 190 H 12/26/22 00:00: Sodium 141, Potassium 2.9 L, Chloride 109 H, Carbon Dioxide 2 4.0, Anion Gap 8, BUN 6 L, Creatinine 0.63, Estim Creat Clear Calc 129.99, Est GFR (MDRD) Af Amer 147, Est GFR (MDRD) Non-Af 122, BUN/Creatinine Ratio 9.5 L, Glucose 148 H, Calcium 8.6, Phosphorus 2.6, Magnesium 2.4 12/26/22 00:03: POC Glucose 156 H 12/26/22 01:56: POC Glucose 134 H 12/26/22 04:09: POC Glucose 131 H 12/26/22 04:35: Sodium 142, Potassium 2.7 L*, Chloride 111 H, Carbon Dioxide 24.0, Anion Gap 7, BUN 5 L, Creatinine 0.61, Estim Creat Clear Calc 134.25, Est GFR (MDRD) Af Amer 154, Est GFR (MDRD) Non-Af 127, BUN/Creatinine Ratio 8.2 L, Glucose 129 H, Calcium 8.2 L, Phosphorus 1.9 L, Magnesium 2.2 12/26/22 06:21: POC Glucose 176 H 12/26/22 07:58: POC Glucose 127 H 12/26/22 11:42: POC Glucose 307 H 12/26/22 11:45: Urine Color Yellow, Urine Clarity Sl. Cloudy, Urine pH 6.5, Ur Specific [place] 1.010, Urine Protein Negative, Urine Glucose (UA) 1000 H, Urine Ketones 150 A*, Urine Occult Blood Negative, Urine Nitrite Negative, Urine Bilirubin Negative, Urine Urobilinogen Normal, Ur Leukocyte Esterase Negative, Urine RBC 0 SEEN, Urine WBC 0 SEEN, Ur Squamous Epith Cells 0 SEEN, Urine Bacteria 0 SEEN, Urine Mucus 0 SEEN Micro: Microbiology 12/24/22 00:00 Urine, Clean Catch Urine Culture - Final Mixed Gram Positive Organisms Radiography Diagnostic Testing: Radiology Impression Chest X-Ray 12/25/22 11:55 IMPRESSION: No interval change. Normal chest. Electronically Signed: Michael Concepcion MD at 12:55 EDT , Rhythm Strip Rhythm Strip: Sinus Tach Rate: 108 Ectopy: None Physical Exam Const alert, oriented x3 and no apparent distress General Appearance: cooperative HEENT normocephalic and head/scalp atraumatic Eyes PERRL and EOMs intact bilaterally Neck no lymphadenopathy, supple and no JVD Lymph Lymphatic: no lymphadenopathy noted and no lymphedema noted Resp normal respiratory effort, normal air movement and clear to auscultation bilaterally Cardio regular rate, regular rhythm, S1 normal heart sound, S2 normal heart sound and no murmurs Palpation: normal PMI GI normal to inspection, nondistended, normoactive bowel sounds, soft to palpation and non-tender Extremity normal capillary refill and no clubbing, cyanosis or edema Skin General Skin Exam: no breakdown Neuro CN's II-XII intact bilaterally, no focal motor deficits and no sensory deficits noted Coordination / Balance: [id number] test normal Motor Exam: strength 5/5 throughout Psych thought process normal and cooperative Appearance: appropriate Assessment & Plan Assessment/Plan (1) DKA, type 1: (2) FRANKLIN (acute kidney injury): (3) UTI (urinary tract infection): PLAN: Plan #DKA in a known type 1 diabetic * Resolving. Anion gap has closed. * now on SQ insulin lantus 15 units bid * ISS. Accuchecks ACHS * says she sees her appliance adjuster every 6 months. * was prescribed an insulin pump at her last visit, but hasnt picked it up yet, and has been using her long acting insulin at home * #Hypokalemia: K is 2.7. Will replace aggressively and trend. #HYpophosphatemia: will replace and trend ?UTI * Patient complained of urinary symptoms. However leukocyte esterase was negative and she had no bacteria in her urine * She was started on IV ceftriaxone in the ED. * Urine cultures growing mixed gram positive organisms * will dc IV ceftriaone * DVT prophylaxis: Lovenox
[2022-12-26 14:54] LABS: Potassium 3.4 mmol/L (3.5-5.1)
[2022-12-26 17:03] LABS: Bedside Glucose 179 mg/dL (74-106)
[2022-12-26] MEDS: hydrOXYzine PAM 25 MG Capsule PO (20:47)
[2022-12-26 21:16] LABS: Bedside Glucose 283 mg/dL (74-106)
[2022-12-27] MEDS: Dext 5%-0.45% NS 1,000 ML 75 ML IV (01:17)
[2022-12-27 02:00] VITALS: BP 123/76; PULSE 78; RESP 18; O2SAT 96
[2022-12-27] MEDS: Ondansetron 4 MG/2 ML Vial 2 MG IV (05:08)
[2022-12-27] MEDS: Insulin Glargine-YFGN 100 UNIT/ML Pen 15 UNIT SC (09:08)
[2022-12-27] MEDS: Insulin Lispro 100 UNIT/ML INSULN.PEN SC ×2 (09:09→09:10)
[2022-12-27] MEDS: Enoxaparin 40 MG/0.4 ML Syringe SC (09:10)
[2022-12-27 09:35] LABS: Bedside Glucose 254 mg/dL (74-106)
[2022-12-27 10:09] VITALS: BP 120/79; PULSE 78; RESP 18; TEMP 36.8; O2SAT 98
[2022-12-27] MEDS: Ceftriaxone 1 GM/50 ML BAG IV (10:47)
[2022-12-27 11:51] LABS: Bedside Glucose 115 mg/dL (74-106)
--- NOTE | 2022-12-27 12:03 | PCM.DC.SUM ---
Providers Date of Admission: 12/24/22 Date of Discharge: 12/27/22 Primary Care Physician: Dr. Erika Sen MD Consultations 12/24/22 09:32 Consult: Teleserv[employer] Representative / Pulmonary Medicine Routine Consulting Provider: Pulmonary Medicine jenny Longo Reason for Consult: DKA EMERGENT Consult: No MD Notified: Yes Date Notified: 12/24/22 Time Notified: 09:33 Method of Notification: Text Reason For Visit: DKA Diagnosis Discharge Diagnosis (1) DKA, type 1: Status: Acute Code(s): E10.10 - Type 1 diabetes mellitus with ketoacidosis without coma (2) FRANKLIN (acute kidney injury): Status: Acute Code(s): N17.9 - Acute kidney failure, unspecified (3) UTI (urinary tract infection): Status: Acute Code(s): N39.0 - Urinary tract infection, site not specified Plan #DKA in a known type 1 diabetic Resolving. Anion gap has closed. now on SQ insulin lantus 15 units bid ISS. Espinoza HAYDEN says she sees her automotive artist every 6 months. was prescribed an insulin pump at her last visit, but hasnt picked it up yet, and has been using her long acting insulin at home #Hypokalemia: K is 2.7. Will replace aggressively and trend. #HYpophosphatemia: will replace and trend ?UTI Patient complained of urinary symptoms. However leukocyte esterase was negative and she had no bacteria in her urine She was started on IV ceftriaxone in the ED. Urine cultures growing mixed gram positive organisms will dc IV ceftriaone DVT prophylaxis: Lovenox Medications at Discharge Home Medications albuterol sulfate 90 mcg/actuation aerosol inhaler (Ventolin HFA) 2 puff inhalation Q4H PRN PRN Sob &/Or Wheezing 08/25/18 Ketone Urine Test (acetone (urine) test) #50 ea 11/05/21 insulin aspart U-100 100 unit/mL subcutaneous solution 100 unit continuous subcutaneous infusion .continuous #90 mL 09/26/22 fluticasone propionate 50 mcg/actuation nasal spray,suspension 2 spray intranasal DAILY 11/21/22 FreeStyle Daniela 14 Day Sensor (flash glucose sensor) #2 ea 11/23/22 blood-glucose sensor (Dexcom G6 Sensor device) #10 ea 11/23/22 blood-glucose transmitter (Dexcom G6 Transmitter device) #1 ea 11/23/22 insulin glargine 100 unit/mL (3 mL) subcutaneous pen (Basaglar KwikPen U-100 Insulin) 15 unit (0.15 mL) subcut BID #15 mL 11/23/22 insulin pump cart,automated,BT (Omnipod 5 G6 Pods (Gen 5) subcutaneous cartridge) #10 ea 11/23/22 insulin pump cart,automated,BT (Omnipod 5 G6 Pods (Gen 5) subcutaneous cartridge) #45 ea 11/23/22 insulin pump cartridge,automated dose,BT with controller subcutaneous (Omnipod 5 G6 Intro Kit (Gen 5) subcutaneous cartridge with controller) #1 ea 11/23/22 pen needle, diabetic 32 gauge x 5/32 (BD Ultra-Fine Opal Pen Needle) #120 ea 11/23/22 hydroxyzine pamoate 25 mg capsule (Vistaril) 25 mg PO QHS #30 caps 12/11/22 insulin aspart U-100 100 unit/mL (3 mL) subcutaneous pen (Novolog FlexPen U-100 Insulin aspart) 5 unit (0.05 mL) subcut TID #15 mL 12/27/22 insulin glargine-yfgn 100 unit/mL (3 mL) subcutaneous pen 15 unit (0.15 mL) subcut BID #15 mL 12/27/22 Hospital Course Operations None Procedures None Summary of Care Provided Minutes Spent on Discharge: 50 Hospital Course: 22-year-old female with a past medical history of type 1 diabetes mellitus who was admitted to the ED on 12/24/2022 with a complaint of confusion nausea and vomiting which started the day before presentation. She also complained of back pain and dysuria. She said her glucometer read his sugar is high at home. She had been prescribed an insulin pump but says she had not yet received it because the company that ability to had not yet mailed it. She had therefore not been taking her insulin via the pump and had been giving his subcu insulin shots. On admission anion gap was markedly elevated and blood glucose was also markedly elevated. Bicarb was low. She was admitted and managed for DKA. She was started on IV fluid hydration and insulin drip and admitted to the ICU. Of note her anion gap was 27. She was also hypokalemic and had FRANKLIN. She was hydrated with IV fluids. Urinalysis showed evidence of UTI so she was started on IV ceftriaxone for UTI. Her anion gap gradually closed and blood sugars normalized. She was switched to subcu insulin 15 units twice daily for the long-acting insulin as she does not have her insulin pump. Urine cultures grew mixed gram-positive organisms and antibiotics were discontinued. Patient gradually felt better and was transferred out of the ICU. She was discharged on 12/27/2022. She was counseled to be compliant with her insulin and to follow-up with her automotive artist on outpatient basis for medications to be adjusted as needed. She is follow-up with her primary care doctor in automotive artist within 1 to 2 weeks. Patient seen and examined prior to discharge. She had no complaints and had an uneventful night. Review of systems otherwise negative. Labs and vitals reviewed. Home medication reviewed and reconciled. Physical Exam Const alert, oriented x3 and no apparent distress General Appearance: cooperative, comfortable and well kempt Orientation / Consciousness: awake HEENT normocephalic, head/scalp atraumatic, hearing grossly normal bilaterally and moist oral mucous membranes Mouth: oral and palatal mucosa normal Eyes PERRL and EOMs intact bilaterally Neck no lymphadenopathy, supple and no JVD Lymph Lymphatic: no lymphadenopathy noted and no lymphedema noted Resp normal respiratory effort, normal air movement, no retractions, no use of accessory muscles and clear to auscultation bilaterally Cardio regular rate, regular rhythm, S1 normal heart sound, S2 normal heart sound and no murmurs Palpation: normal PMI GI normal to inspection, nondistended, normoactive bowel sounds, soft to palpation and non-tender Extremity normal to inspection, full ROM, normal capillary refill and no clubbing, cyanosis or edema Skin no rashes or lesions noted General Skin Exam: no breakdown Neuro oriented x3, CN's II-XII intact bilaterally, moves all extremities, no focal motor deficits and no sensory deficits noted Sensorium / Orientation: awake and alert Motor Exam: strength 5/5 throughout Psych thought process normal and cooperative Appearance: appropriate Weight / BMI Weight Weight: 131 lb 13.383 oz Body Mass Index (BMI) 26.5 ABG / Lab / Microbiology Data Result Diagrams: 12/25/22 04:53 12/26/22 14:30 Laboratory: Laboratory Results - last 24 hr 12/25/22 11:15: Ionized Calcium 5.1 12/26/22 11:42: POC Glucose 307 H 12/26/22 11:45: Urine Color Yellow, Urine Clarity Sl. Cloudy, Urine pH 6.5, Ur Specific Homer 1.010, Urine Protein Negative, Urine Glucose (UA) 1000 H, Urine Ketones 150 A*, Urine Occult Blood Negative, Urine Nitrite Negative, Urine Bilirubin Negative, Urine Urobilinogen Normal, Ur Leukocyte Esterase Negative, Urine RBC 0 SEEN, Urine WBC 0 SEEN, Ur Squamous Epith Cells 0 SEEN, Urine Bacteria 0 SEEN, Urine Mucus 0 SEEN 12/26/22 14:30: Potassium 3.4 L 12/26/22 16:44: POC Glucose 179 H 12/26/22 20:51: POC Glucose 283 H 12/27/22 09:06: POC Glucose 254 H 12/27/22 11:27: POC Glucose 115 H Microbiology: Microbiology 12/26/22 11:45 Urine, Clean Catch Urine Culture - Preliminary Culture exhibits no growth. 12/24/22 00:00 Urine, Clean Catch Urine Culture - Final Mixed Gram Positive Organisms D/C Instructions Discharge Diet: 1800 Calorie Control Diet Discharge Activity: Return to Normal Activity Weight Bearing Status: Weight bearing as tolerated Call your doctor if you observe: Fever of 101 or Higher, Shortness of breath, Dizziness, Swelling in the ankles, Chest pain and Increased palpitations (irregular heartbeat) Meaningful Use Info Meaningful Use Diagnoses (Choose all that apply): None applicable Discharge Plan Admission Admit Date/Time: 12/24/22 05:12 Primary Reason for Your Visit: DKA Attending Provider: Bianca Medina Primary Care Provider: Erika Sen Consulting Providers: Antonio Vaca ; Valerio Garza ; Chris Michael ; Rafat Cooney ; Jesu Bob ; Chiquita Long [employer]ACH[employer] MANU[employer]URING SUPERVISOR Instructions Patient Instructions: Ketoacidosis Ch Discharge Orders/Prescriptions Prescriptions: New insulin glargine-yfgn 100 unit/mL (3 mL) Insulin Pen 15 unit subcut BID Qty: 15 1RF Continued insulin aspart U-100 100 unit/mL solution 100 unit continuous subcutaneous infusion .continuous Qty: 90 1RF albuterol sulfate [Ventolin HFA] 18 GM HFA aerosol inhaler 2 puff inhalation Q4H PRN PRN (Reason: Sob &/Or Wheezing) Label Comments: inhale 2 puffs by mouth every 4 hours if needed fluticasone propionate 50 mcg/actuation spray,suspension 2 spray INTRANASAL DAILY Label Comments: USE 2 SPRAYS IN EACH NOSTRIL ONCE DAILY. RINSE MOUTH AFTER USE. (DME) Dexcom G6 Sensor Device See Rx Instructions .Route Qty: 10 5RF Rx Instructions: As directed (DME) Dexcom G6 Transmitter Device See Rx Instructions .Route Qty: 1 3RF Rx Instructions: As directed (DME) pen needle, diabetic [BD Ultra-Fine Opal Pen Needle] 32 gauge x 5/32 needle See Rx Instructions .ROUTE .MEDSUPPLY Qty: 120 5RF Rx Instructions: 4 times daily (DME) FreeStyle Daniela 14 Day Sensor Kit See Rx Instructions .ROUTE .MEDSUPPLY Qty: 2 3RF Rx Instructions: As directed (DME) Omnipod 5 G6 Pods (Gen 5) Cartridge See Rx Instructions .Route Qty: 10 5RF Rx Instructions: As directed (DME) Omnipod 5 G6 Pods (Gen 5) Cartridge See Rx Instructions .Route Qty: 45 1RF Rx Instructions: change every 48-72 hours (DME) Omnipod 5 G6 Intro Kit (Gen 5) Cartridge See Rx Instructions .Route Qty: 1 0RF Rx Instructions: As directed insulin glargine [Basaglar KwikPen U-100 Insulin] 100 unit/mL (3 mL) insulin pen 15 unit subcut BID Qty: 15 0RF insulin aspart U-100 [Novolog FlexPen U-100 Insulin] 100 unit/mL (3 mL) insulin pen 5 unit subcut TID Qty: 15 2RF (DME) Ketone Urine Test Strip See Rx Instructions .ROUTE .MEDSUPPLY Qty: 50 1RF Rx Instructions: once/day hydroxyzine pamoate [Vistaril] 25 mg capsule 25 mg PO QHS Qty: 30 6RF Referrals / Follow Up: Erika Sen MD [Primary Care Provider] - Within 1 Week Pj Chow MD [Med Staff - Courtesy Staff] - 01/13/23 11:45 am ([facility] will pick you up at your home @ 11:15 AM and will transport you to this appointment. Please call [facility] transportation services @ [phone] if this appt date or time is changed. ) Disposition Disposition (needs filled in before D/C Order can be placed): Home, Self Care Charges/Coding Visit Charges Inpatient E&M: 23638 Disch Hosp >30min
--- NOTE | 2022-12-27 12:26 | NURSING ---
This RN viewed shift assessment and vitals done by Laney Beal LPN. Will continue to monitor.
--- NOTE | 2022-12-27 12:31 | NURSING ---
THis RN viewed charting on vital signs and shift assessment done by Laney SOSA. Will continue to monitor.
--- NOTE | 2022-12-27 14:22 | CASEMGMT ---
Addendum entered by Bren Chery 12/27/22 15:24: TC to [facility], pt will be picked up by Donta Morales in a [place] [employer]avan, pt and MACHINE ATTENDANT aware. Original Note: Pt ready for dc. Pt has novolog ordered. Pt needs transportation home, [facility] van is full. TC to [facility] Provide A Ride, scheduled trip home, #[phone]. They will call the nurses station number 15 min prior to arrival to main entrance. Once sales warehouse driver is here, they can wait 5 min before the ride is marked as a no show. The timeframe for arrival is 2:12p-5:12p. RN CM into pt room, pt nurse and pt aware of this. Also notified racing secretary.
--- NOTE | 2023-01-06 08:49 | CCN.REFER ---
UNABLE TO REACH PATIENT TO SET UP CCN. PATIENT AND NEXT OF KIN NOT RETURNING CALLS.
== END 2022-12-27 15:08 | disposition home or self-care (01) | DRG 420 ==
LOC: ED 12-24 05:17 → ICU 12-24 05:42 → MS3 12-27 08:22
PROVIDERS: Internal Medicine; Admitting Provider Hospitalist; Emergency Provider Emergency Medicine; PCP Internal Medicine; Visit Provider Student in an Organized Health Care Education/Training Program
DX: E10.10 Type 1 diabetes mellitus with ketoacidosis without coma (principal); E83.39 Other disorders of phosphorus metabolism; N17.9 Acute kidney failure, unspecified; Z79.4 Long term (current) use of insulin; E87.6 Hypokalemia; F41.9 Anxiety disorder, unspecified; R11.2 Nausea with vomiting, unspecified; F12.10 Cannabis abuse, uncomplicated; N39.0 Urinary tract infection, site not specified; F32.A Depression, unspecified; Z79.899 Other long term (current) drug therapy
CPT/HCPCS: 36415; 71045; 74176; 80048; 80053; 80307; 81001; 82009; 82330; 82803; 82947; 82962; 83735; 84100; 84132; 84703; 85025; 87086; 87088; 93005; 94762; 97802; 99285; J7030; J7040; A4216; J2405; J7799

== ENCOUNTER 2023-02-15 14:12 | Inpatient (IN) | payer MEDICAID, SELFPAY ==
[2023-02-15] VITALS (11 sets, daily range): BP systolic 80–147; BP diastolic 51–89; PULSE 114–145; RESP 20–33; TEMP 36.3–36.9; O2SAT 98–100; BMI 26.6; BMI 25.8
--- NOTE | 2023-02-15 14:29 | EKG12_ITS ---
Test Reason : HYPERGLYCEMIA Blood Pressure : / mmHG Vent. Rate : 132 BPM Atrial Rate : 132 BPM P-R Int : 122 ms QRS Dur : 082 ms QT Int : 332 ms P-R-T Axes : 070 076 036 degrees QTc Int : 491 ms Sinus tachycardia Otherwise normal ECG Confirmed by FRANCHESCA AGOSTO, ALIYAH ([id number]), science editor ARELY OMALLEY ([id number]) on 02/20/2023 8:31:56 AM Referred By: Confirmed By:LOUISE SORENSEN MD
--- NOTE | 2023-02-15 14:33 | EX.ED.DYSGE1 ---
HPI <DONOVAN Billingsley - Last Filed: 02/15/23 17:13> History of Present Illness Chief Complaint: Hyperglycemia Narrative Narrative: Patient is a 22-year-old female with history of type 1 diabetes that she was diagnosed with at 9 years of age. Patient was seen here in November 2022 for the same issue. Patient states in the last 2 days she been having nausea and vomiting, has not been taking her medication as prescribed. Patient states that 2 nights ago, she was working third shift, she talk with one of her friends and wanted one of her friends Adderall, the friend gave her a Suboxone 7 Adderall. Patient states has been having nausea and vomiting since not taking her insulin. Patient does not check her sugar in 3 days. Patient states she has abdominal pain, rapid breathing, consistent nausea and vomiting which is consistent with her high sugar. Patient was sugar was 527 on arrival here. PFS <DONOVAN Billingsley - Last Filed: 02/15/23 17:13> [facility] Medical History Anxiety and depression Anxiety and depression Asthma Asthma Cannabis hyperemesis syndrome concurrent with and due to cannabis abuse Diabetes type 1, controlled DKA, type 1 History of marijuana use Hypokalemia Hypophosphatemia Implanon in place Insulin pump titration Presence of insulin pump Home Medications albuterol sulfate 90 mcg/actuation aerosol inhaler (Ventolin HFA) 2 puff inhalation Q4H PRN SHORTNES OF BREATH/WHEEZING 08/25/18 [History Last Taken 05/12/19] Ketone Urine Test (acetone (urine) test) #50 ea 11/05/21 [Rx Last Taken Unknown] insulin aspart U-100 100 unit/mL subcutaneous solution 100 unit continuous subcutaneous infusion .continuous #90 mL 09/26/22 [Rx Last Taken Unknown] fluticasone propionate 50 mcg/actuation nasal spray,suspension 2 spray intranasal DAILY NASAL CONGESTION 11/21/22 [History Last Taken 02/12/23] blood-glucose sensor (Dexcom G6 Sensor device) #10 ea 11/23/22 [Rx Last Taken Unknown] blood-glucose transmitter (Dexcom G6 Transmitter device) #1 ea 11/23/22 [Rx Last Taken Unknown] insulin glargine 100 unit/mL (3 mL) subcutaneous pen (Basaglar KwikPen U-100 Insulin) 15 unit (0.15 mL) subcut BID #15 mL 11/23/22 [Rx Last Taken Unknown] insulin pump cart,automated,BT (Omnipod 5 G6 Pods (Gen 5) subcutaneous cartridge) #45 ea 11/23/22 [Rx Last Taken Unknown] insulin pump cartridge,automated dose,BT with controller subcutaneous (Omnipod 5 G6 Intro Kit (Gen 5) subcutaneous cartridge with controller) #1 ea 11/23/22 [Rx Last Taken Unknown] pen needle, diabetic 32 gauge x 5/32 (BD Ultra-Fine Opal Pen Needle) #120 ea 11/23/22 [Rx Last Taken Unknown] hydroxyzine pamoate 25 mg capsule (Vistaril) 25 mg PO QHS ITCHING #30 caps 01/13/23 [Rx Last Taken 02/12/23] insulin aspart U-100 100 unit/mL (3 mL) subcutaneous pen (Novolog FlexPen U-100 Insulin aspart) 20 unit (0.2 mL) subcut TID #18 mL 01/13/23 [Rx Last Taken Unknown] Allergy/AdvReac Type Severity Reaction Status Date / Time bee venom protein (honey bee) Allergy Severe Anaphylaxis Verified 02/15/23 14:16 [bee stings] Penicillins Allergy Unknown Verified 02/15/23 14:16 Sulfa (Sulfonamide Allergy Unknown Verified 02/15/23 14:16 Antibiotics) prednisone AdvReac Vomiting Verified 02/15/23 14:16 Family History Grandmother Diabetes Sister Asthma Brother Asthma Mother Heart disease Surgical History History of placement of ear tubes Social History household members: family Smoking Status: Never smoker second hand exposure: No alcohol intake: never substance use type: other details: Cannabis, last use ~ 1 month prior, ingested. ROS <DONOVAN Billingsley - Last Filed: 02/15/23 17:13> ROS ED ROS Narrative Constitutional: Negative for fever, weight loss, weakness. Positive for chills Eyes: Negative for vision loss, vision change, double vision ENT: Negative for any sore throat, ear pain, congestion Cardiovascular: Negative for any chest pain, tightness, palpitations Respiratory: Negative for any cough, sputum production, hemoptysis, dyspnea, dyspnea on exertion, orthopnea Gastrointestinal: Negative for any diarrhea, constipation, blood in stool, blood in vomit. Positive for nausea and vomiting, abdominal pain : Negative for any urinary frequency, dysuria, retention, blood in urine Muscle skeletal: Negative for any muscle joint pain, stiffness, arthralgias, neck pain, back pain. Positive for myalgias Neurological: Negative for any headache, syncope, numbness or tingling, dizziness Skin: Negative for any rashes, lumps, itching, abrasions, lacerations Psychiatric: Negative for any depression, anxiety, stress, suicidal ideation, homicidal ideation Hematologic: Negative for any easy bruising, excessive bruising, easy bleeding Allergies: Negative for any eczema, hives, rash EXAM <DONOVAN Billingsley - Last Filed: 02/15/23 17:13> Physical Exam Narrative Exam Narrative: Vital signs reviewed. Patient is tachycardic, rapid breathing. Upon entering the room, I do smell ketones. Blood sugar greater than 500 HEET: Head normocephalic atraumatic, TMs clear bilaterally. Posterior pharynx is clear, dry mucous membranes. Nares clear bilaterally. Neck: Supple with no lymphadenopathy or tenderness. No signs of meningismus, negative jolt sign. Cardiac: Tachycardic rate no murmurs gallops or rubs, equal peripheral pulses bilaterally. Respiratory: Lungs clear to auscultation bilaterally. No chest tenderness. Abdomen: Soft, nontender, nondistended. No abdominal bruit or pulsatile masses. No hepatosplenomegaly Extremities: No peripheral edema, no signs of gross trauma or deformity. Active full range of motion of all extremities. Neuro: Cranial nerves II through XII intact, no focal neurological deficits. Skin: Clean dry and intact with no rash, purpura, petechiae, vesicles or pustules. Backs/flank: No CVA tenderness, no midline spinal tenderness, no deformity. Psych: Normal mood and affect. No SI, HI or acute psychosis. Const Vital Signs: 02/15/23 14:13 02/15/23 15:00 02/15/23 15:03 Temperature 98 F Temperature Source Temporal Pulse Rate 135 H Respiratory Rate 30 H Respiratory Effort Normal Non-Labored Respiratory Pattern Normal Blood Pressure 80/51 L 103/81 H Blood Pressure Mean 60 88 Pulse Ox 99 Oxygen Delivery Method Room Air 02/15/23 16:00 Temperature Temperature Source Pulse Rate 126 H Respiratory Rate 28 H Respiratory Effort Respiratory Pattern Blood Pressure 100/69 Blood Pressure Mean 79 Pulse Ox 99 Oxygen Delivery Method Room Air <Dr. Juan Carlos Mcgregor DO - Last Filed: 02/15/23 23:46> Physical Exam Const Vital Signs: 02/15/23 14:13 02/15/23 15:00 02/15/23 15:03 Temperature 98 F Temperature Source Temporal Pulse Rate 135 H Respiratory Rate 30 H Respiratory Effort Normal Non-Labored Respiratory Pattern Normal Blood Pressure 80/51 L 103/81 H Blood Pressure Mean 60 88 Pulse Ox 99 Oxygen Delivery Method Room Air 02/15/23 16:00 Temperature Temperature Source Pulse Rate 126 H Respiratory Rate 28 H Respiratory Effort Respiratory Pattern Blood Pressure 100/69 Blood Pressure Mean 79 Pulse Ox 99 Oxygen Delivery Method Room Air MDM <DONOVAN Billingsley - Last Filed: 02/15/23 17:13> [facility] Lab Data Labs: Laboratory Results - last 24 hr 02/15/23 02/15/23 02/15/23 14:21 16:05 16:36 WBC 23.4 H RBC 5.61 H Hgb 16.1 H Hct 44.8 MCV 79.9 L MCH 28.7 MCHC 35.9 RDW Std Deviation 35.8 RDW Coeff of Marilynn 12.7 Plt Count 548 H MPV 8.8 Immature Gran % (Auto) 0.900 Neut % (Auto) 89.7 H Lymph % (Auto) 4.2 L Stanton % (Auto) 4.9 Eos % (Auto) 0.0 Baso % (Auto) 0.3 Absolute Neuts (auto) 21.0 H Absolute Lymphs (auto) 0.98 Nucleated RBC % 0 Differential Comment SCANNED Sodium 127 L Potassium 2.8 L Chloride 86 L Carbon Dioxide 12.0 L Anion Gap 29 H BUN 55 H Creatinine 1.49 H Estim Creat Clear Calc 54.87 Est GFR (MDRD) Af Amer 55 L Est GFR (MDRD) Non-Af 45 L BUN/Creatinine Ratio 36.9 H Glucose 443 H Lactic Acid 1.5 Calcium 8.6 Total Bilirubin 1.10 H AST 13 L ALT 17 Alkaline Phosphatase 151 H Total Protein 7.9 Albumin 3.9 Globulin 4.0 Albumin/Globulin Ratio 1.0 Lipase < 10 L Serum , Qual NEGATIVE Acetone Level LARGE H POC Glucose > 500 H* 438 H Radiography Diagnostic Testing: Clinical Impression(s) from Imaging Studies Chest X-Ray 02/15/23 16:00 IMPRESSION: New left IJ catheter in the SVC. No pneumothorax. Electronically Signed: Guillermo Moreland MD at 16:46 EDT , EKG Sinus tachycardia: Attestation: I personally reviewed and interpreted this EKG as follows: Interpretation: Sinus Tachycardia Comments: Sinus tachycardia, rate 132 bpm NC 122 ms, QRS duration 82 ms, no acute ST elevation, no acute infarct noted. Treatment and Re-Evaluation :: Patient does appear ill appearing, patient's vital signs show hypotension, tachycardia. Patient is here for concern of DKA. Patient's physical examination is consistent with DKA with positive ketones that I can smell, consistent retching. Patient will be given a full DKA work-up including 2 L of fluid, Zofran. Lactic acid, acetone will be drawn. Patient does look similar from when I saw her in November for the similar complaint. Staff had a difficult time obtaining IV access for this patient. ER attending had to put in a central line. Patient was given 2 L of normal saline. Labs were drawn, patient CBC showed a leukocytosis white blood count 23.4, patient's chemistries show sodium 127 however corrected is around 132. Patient potassium is low at 2.8. Creatinine is 1.49, 1 month ago, she was 0.61. Blood sugar was 443, patient had large acetone. Patient was given 1 more liter of normal saline which are equal to 3 L. She was given 40 mill colons IV potassium. Insulin drip was started. Patient was then given Compazine, patient continued to have nausea and vomiting. Chest x-ray showed a new left IJ catheter in the SVC, no pneumothorax. At this time, the patient will be admitted to the hospital. Possible ICU admission. Hospital spoke to the attending. Patient's vital signs improving. Patient is blood pressure is normalizing, patient's heart rate is decreasing. Critical care time will be 45 minutes for this patient secondary to obtaining central line, constant indication, constant reevaluation. <Dr. Juan Carlos Mcgregor, DO - Last Filed: 02/15/23 23:46> [facility] Lab Data Attestation: I reviewed the patient's lab results. Labs: Laboratory Results - last 24 hr 02/15/23 02/15/23 02/15/23 14:21 16:05 16:36 WBC 23.4 H RBC 5.61 H Hgb 16.1 H Hct 44.8 MCV 79.9 L MCH 28.7 MCHC 35.9 RDW Std Deviation 35.8 RDW Coeff of Marilynn 12.7 Plt Count 548 H MPV 8.8 Immature Gran % (Auto) 0.900 Neut % (Auto) 89.7 H Lymph % (Auto) 4.2 L Stanton % (Auto) 4.9 Eos % (Auto) 0.0 Baso % (Auto) 0.3 Absolute Neuts (auto) 21.0 H Absolute Lymphs (auto) 0.98 Nucleated RBC % 0 Differential Comment SCANNED Sodium 127 L Potassium 2.8 L Chloride 86 L Carbon Dioxide 12.0 L Anion Gap 29 H BUN 55 H Creatinine 1.49 H Estim Creat Clear Calc 54.87 Est GFR (MDRD) Af Amer 55 L Est GFR (MDRD) Non-Af 45 L BUN/Creatinine Ratio 36.9 H Glucose 443 H Lactic Acid 1.5 Calcium 8.6 Total Bilirubin 1.10 H AST 13 L ALT 17 Alkaline Phosphatase 151 H Total Protein 7.9 Albumin 3.9 Globulin 4.0 Albumin/Globulin Ratio 1.0 Lipase < 10 L Serum , Qual NEGATIVE Acetone Level LARGE H POC Glucose > 500 H* 438 H Radiography Diagnostic Testing: Clinical Impression(s) from Imaging Studies Chest X-Ray 02/15/23 16:00 IMPRESSION: New left IJ catheter in the SVC. No pneumothorax. Electronically Signed: Guillermo Moreland MD at 16:46 EDT Reading Location ID and State: [facility] / [place] , Service support , Treatment and Re-Evaluation :: Patient does appear ill appearing, patient's vital signs show hypotension, tachycardia. Patient is here for concern of DKA. Patient's physical examination is consistent with DKA with positive ketones that I can smell, consistent retching. Patient will be given a full DKA work-up including 2 L of fluid, Zofran. Lactic acid, acetone will be drawn. Patient does look similar from when I saw her in November for the similar complaint. Staff had a difficult time obtaining IV access for this patient. ER attending had to put in a central line. Patient was given 2 L of normal saline. Labs were drawn, patient CBC showed a leukocytosis white blood count 23.4, patient's chemistries show sodium 127 however corrected is around 132. Patient potassium is low at 2.8. Creatinine is 1.49, 1 month ago, she was 0.61. Blood sugar was 443, patient had large acetone. Patient was given 1 more liter of normal saline which are equal to 3 L. She was given 40 mill colons IV potassium. Insulin drip was started. Patient was then given Compazine, patient continued to have nausea and vomiting. Chest x-ray showed a new left IJ catheter in the SVC, no pneumothorax. At this time, the patient will be admitted to the hospital. ICU admission. Hospital spoke to the attending. Patient's vital signs improving. Patient is blood pressure is normalizing, patient's heart rate is decreasing. Critical care time will be 45 minutes for this patient secondary to obtaining central line, constant indication, constant reevaluation. Critical care time 45 minutes exclusive from separate billable procedures that were performed. The following was considered in the determination of critical care but not limited to the level of medical decision making, intensive cardiac and/or respiratory monitoring, frequent vital sign monitoring, evaluation of laboratory studies, evaluation of radiographic studies, oxygen monitoring, and constant monitoring and speaking to family at bedside I, Dr Mcgregor, have reviewed the above progress note and course of action in the ER; agree with the above. I have personally seen and evaluated this patient, gone over history and physical, and discussed disposition and treatment plan with the patient. Procedures <Dr. Juan Carlos Mcgregor, DO - Last Filed: 02/15/23 23:46> Other Procedures Procedure(s): Multiple attempts were done by nursing staff trying to establish an IV on this patient, over 45 minutes has been spent. Ultrasound attempts have been spent, EJ attempts have been done by nursing staff. Patient did have a 24-gauge IV placed of the right foot. He was working, IV fluids are going slow, patient needed central venous access for hydration and improvement of DKA that patient is most likely in. Patient agrees, risk and benefits were discussed, patient signed consent form Procedure note. Left internal jugular CVC placement. Risk and benefits were discussed before procedure, consent form was signed. procedure was done by . patient was cleaned, prepped, draped in normal sterile fashion. 4 cc of 1% lidocaine were used for superficial anesthetic effect. Seldinger technique was used. using the Cook needle, venous colored, nonpulsatile blood was accessed. guidewire was intact at all times and was removed. All 3 ports had good blood return, and were flushed easily. CVC was secured with sutures and Tegaderm. Patient tolerated procedure well without difficulty. No complications occurred. Chest x-ray confirmed placement. Patient's central line was placed at 16 cm, sitting above the IJ nor an x-ray. No pneumothorax, no complications occurred during the procedure. Minimal bleeding, less than 3 cc. <DONOVAN Billingsley - Last Filed: 02/15/23 17:13> Critical Care Time Critical Care Time: Yes Critical care time (excluding procedures): 30-74 minutes, Discussing w/Patient &/or Family/Bus Transportation Manager and Performing Direct Patient Care at Bedside Discharge Plan Dx/Rx/DC Orders Clinical Impression: Acute kidney injury, Acute dehydration, Acute nausea with nonbilious vomiting, DKA, type 1, Acute hypokalemia Disposition Disposition: Acute Care Hospital [facility] Discharge Date/Time: 02/15/23 18:20
[2023-02-15 14:40] LABS: Bedside Glucose > 500 mg/dL (74-106)
[2023-02-15] MEDS: Ondansetron 4 MG/2 ML Vial IV ×3 (15:08→23:50)
[2023-02-15] MEDS: 0.9% Normal Saline 1,000 ML 999 ML IV ×3 (15:08→17:28)
--- NOTE | 2023-02-15 16:00 | RAD_ITS ---
STUDY: X-RAY CHEST REASON FOR EXAM: Female, 22 years old. CENTRAL LINE TECHNIQUE: Single frontal view of the chest. COMPARISON: December 25, 2022 FINDINGS: Left IJ catheter terminates in the superior vena cava. Elevated left hemidiaphragm. Stomach is distended with gas. No pneumothorax. The lungs are clear and expanded. There is no demonstrated pleural abnormality. Normal size heart. Normal mediastinum and kaleigh. Normal visualized pulmonary arteries. Normal visualized aortic arch and descending thoracic aorta. Normal visualized thoracic spine. Normal visualized ribs, clavicles, and shoulders. There is no demonstrated abnormality of the visualized soft tissue structures of the upper abdomen. RAD/CXR for Line Placement IMPRESSION: New left IJ catheter in the SVC. No pneumothorax. Electronically Signed: Guillermo Moreland MD at 16:46 EDT ,
[2023-02-15 16:27] LABS: Absolute Lymphocyte Count 0.98 X10^3/uL (0.83-4.51); Basophil# 0.06 X10^3/uL; Basophil% 0.3 % (0-1); Hematocrit 44.8 % (37-47); Hemoglobin 16.1 g/dL (12.0-15.0); Lymphocyte # 0.98 X10^3/ul (0.83-4.51); Lymphocyte % 4.2 % (19-41); Mean Corp Hgb Conc 35.9 g/dL (32-36); Mean Corpuscular Hgb 28.7 pg (27.0-32.0); Mean Corpuscular Volume 79.9 fL (81-99); Mean Platelet Vol. 8.8 fl (6.2-12.0); Monocyte# 1.14 X10^3/uL; Monocyte% 4.9 % (0-10); NRBC Flagged by Analyzer 0 % (0-5); Neutrophil # 20.98 X10^3/uL (2.7-7.7); Neutrophil % 89.7 % (47-70); POSITIVE DIFFERENTIAL YES; Platelet Count 548 K/mm3 (150-450); RBC Distribution Width CV 12.7 % (11.6-14.6); RBC Distribution Width SD 35.8 fl (35.1-43.9); Red Blood Count 5.61 M/mm3 (4.2-5.4); White Blood Count 23.4 K/mm3 (4.4-11.0)
[2023-02-15 16:31] LABS: Differential Indicated SCAN CRITERIA MET
[2023-02-15 16:43] LABS: Internal QC Validated? YES +Cl - CLEAR BKGD; Pregnancy, Serum, hCG Quali. NEGATIVE Negative
[2023-02-15 16:44] LABS: AST(SGOT) 13 U/L (15-37); Alanine Aminotransfer ALT/SGPT 17 U/L (13-56); Albumin, Serum 3.9 g/dL (3.2-5.0); Alkaline Phosphatase 151 U/L (45-117); Anion Gap 29 (5-15); BUN 55 mg/dL (7-18); BUN/Creat Ratio 36.9 RATIO (10-20); Calcium,Total 8.6 mg/dL (8.5-10.1); Chloride 86 mmol/L (98-107); Creatinine, Serum 1.49 mg/dL (0.55-1.02); EST Glomerular Filtration Rate 45 mL/min (>60); Est Glom Filt Rate - Afr Amer 55 mL/min (>60); Estimated Creatinine Clearance 54.87 ml/min; Glucose 443 mg/dL (74-106); Lipase < 10 U/L (13-75); Potassium 2.8 mmol/L (3.5-5.1); Protein, Total 7.9 g/dL (6.4-8.2); Sodium Level 127 mmol/L (136-145)
[2023-02-15 16:46] LABS: Lactic Acid 1.5 mmol/L (0.4-1.9)
[2023-02-15 16:54] LABS: Bedside Glucose 438 mg/dL (74-106)
--- NOTE | 2023-02-15 16:58 | PCM.HP.STD ---
HPI - General General Date of Admission: 02/15/23 Date of Service: 02/15/23 Chief Complaint: Intractable nausea vomiting HPI Narrative KALIE DESIR, is a 22 F with past medical history second for diabetes mellitus type 1 on insulin who presented to the emergency department with intractable nausea vomiting. Patient symptoms started a day prior to coming in. She had apparently used Adderall and Suboxone given to her by her friend. In addition to the intractable nausea vomiting patient did complain of dysuria as well as frequency. An assessment of diabetic ketoacidosis was made in the emergency department. Patient could not produce any urine in the ED. Admitted to intensive care unit for further manage [facility] Medical History Anxiety and depression Anxiety and depression Asthma Asthma Cannabis hyperemesis syndrome concurrent with and due to cannabis abuse Diabetes type 1, controlled DKA, type 1 History of marijuana use Hypokalemia Hypophosphatemia Implanon in place Insulin pump titration Presence of insulin pump Home Medications albuterol sulfate 90 mcg/actuation aerosol inhaler (Ventolin HFA) 2 puff inhalation Q4H PRN SHORTNES OF BREATH/WHEEZING 08/25/18 [History Last Taken 05/12/19] Ketone Urine Test (acetone (urine) test) #50 ea 11/05/21 [Rx Last Taken Unknown] insulin aspart U-100 100 unit/mL subcutaneous solution 100 unit continuous subcutaneous infusion .continuous #90 mL 09/26/22 [Rx Last Taken Unknown] fluticasone propionate 50 mcg/actuation nasal spray,suspension 2 spray intranasal DAILY NASAL CONGESTION 11/21/22 [History Last Taken 02/12/23] blood-glucose sensor (Dexcom G6 Sensor device) #10 ea 11/23/22 [Rx Last Taken Unknown] blood-glucose transmitter (Dexcom G6 Transmitter device) #1 ea 11/23/22 [Rx Last Taken Unknown] insulin glargine 100 unit/mL (3 mL) subcutaneous pen (Basaglar KwikPen U-100 Insulin) 15 unit (0.15 mL) subcut BID #15 mL 11/23/22 [Rx Last Taken Unknown] insulin pump cart,automated,BT (Omnipod 5 G6 Pods (Gen 5) subcutaneous cartridge) #45 ea 11/23/22 [Rx Last Taken Unknown] insulin pump cartridge,automated dose,BT with controller subcutaneous (Omnipod 5 G6 Intro Kit (Gen 5) subcutaneous cartridge with controller) #1 ea 11/23/22 [Rx Last Taken Unknown] pen needle, diabetic 32 gauge x 5/32 (BD Ultra-Fine Opal Pen Needle) #120 ea 11/23/22 [Rx Last Taken Unknown] hydroxyzine pamoate 25 mg capsule (Vistaril) 25 mg PO QHS ITCHING #30 caps 01/13/23 [Rx Last Taken 02/12/23] insulin aspart U-100 100 unit/mL (3 mL) subcutaneous pen (Novolog FlexPen U-100 Insulin aspart) 20 unit (0.2 mL) subcut TID #18 mL 01/13/23 [Rx Last Taken Unknown] Allergy/AdvReac Type Severity Reaction Status Date / Time bee venom protein (honey bee) Allergy Severe Anaphylaxis Verified 02/15/23 14:16 [bee stings] Penicillins Allergy Unknown Verified 02/15/23 14:16 Sulfa (Sulfonamide Allergy Unknown Verified 02/15/23 14:16 Antibiotics) prednisone AdvReac Vomiting Verified 02/15/23 14:16 Family History Grandmother Diabetes Sister Asthma Brother Asthma Mother Heart disease Surgical History History of placement of ear tubes Social History household members: family Smoking Status: Never smoker second hand exposure: No alcohol intake: never substance use type: other details: Cannabis, last use ~ 1 month prior, ingested. ROS ROS Narrative GENERAL: fever, chills, HEENT: denies headache, sinus congestion, RESPIRATORY: denies cough, sputum production, CARDIAC: denies chest pain, palpitations, GASTROINTESTINAL: nausea, vomiting, GENITOURINARY: dysuria, urgency, frequency, EXTREMITY: denies swelling MUSCULOSKELETAL: denies current joint pain or tenderness NEUROLOGIC: denies focal numbness, weakness, tingling HEMATOLOGIC: denies easy bruising and/or hemorrhage INTEGUMENT: denies rashes PSYCHIATRIC: denies suicidal or homicidal ideation Vital Signs Vital Signs Vital Signs: 02/15/23 14:13 02/15/23 15:00 02/15/23 15:03 Temperature 98 F Temperature Source Temporal Pulse Rate 135 H Respiratory Rate 30 H Respiratory Effort Normal Non-Labored Respiratory Pattern Normal Blood Pressure 80/51 L 103/81 H Blood Pressure Mean 60 88 Pulse Ox 99 Oxygen Delivery Method Room Air 02/15/23 16:00 Temperature Temperature Source Pulse Rate 126 H Respiratory Rate 28 H Respiratory Effort Respiratory Pattern Blood Pressure 100/69 Blood Pressure Mean 79 Pulse Ox 99 Oxygen Delivery Method Room Air Weight Weight: 59.7 kg Body Mass Index (BMI) 26.6 Physical Exam Narrative GENERAL: Lethargic HEENT: Atraumatic; dry oral mucosa EYES; Anicteric, Normal Conjunctiva NECK; supple, normal thyroid, RESPIRATORY: Diminished to auscultation CARDIOVASCULAR: Regular S1 S2, GI: soft, normoactive bowel sounds, : No Renal angle tenderness; EXTREMITIES: No edema, no clubbing, MUSCULOSKELETAL: no muscle wasting NEURO: Awake; no lateralizing signs. SKIN: No Rash PSYCH; Flat affect Results Lab / Micro Data 02/15/23 16:05 02/15/23 16:05 Labs: Laboratory Results - last 24 hr 02/15/23 14:21: POC Glucose > 500 H* 02/15/23 16:05: WBC 23.4 H, RBC 5.61 H, Hgb 16.1 H, Hct 44.8, MCV 79.9 L, MCH 28.7, MCHC 35.9, RDW Std Deviation 35.8, RDW Coeff of Marilynn 12.7, Plt Count 548 H, MPV 8.8, Immature Gran % (Auto) 0.900, Neut % (Auto) 89.7 H, Lymph % (Auto) 4.2 L, Barren % (Auto) 4.9, Eos % (Auto) 0.0, Baso % (Auto) 0.3, Absolute Neuts (auto) 21.0 H, Absolute Lymphs (auto) 0.98, Nucleated RBC % 0, Sodium 127 L, Potassium 2.8 L, Chloride 86 L, Carbon Dioxide 12.0 L, Anion Gap 29 H, BUN 55 H, Creatinine 1.49 H, Estim Creat Clear Calc 54.87, Est GFR (MDRD) Af Amer 55 L, Est GFR (MDRD) Non-Af 45 L, BUN/Creatinine Ratio 36.9 H, Glucose 443 H, Lactic Acid 1.5, Calcium 8.6, Total Bilirubin 1.10 H, AST 13 L, ALT 17, Alkaline Phosphatase 151 H, Total Protein 7.9, Albumin 3.9, Globulin 4.0, Albumin/Globulin Ratio 1.0, Lipase < 10 L, Serum , Qual NEGATIVE, Acetone Level LARGE H 02/15/23 16:36: POC Glucose 438 H Radiology Impression Chest X-Ray 02/15/23 16:00 IMPRESSION: New left IJ catheter in the SVC. No pneumothorax. Electronically Signed: Guillermo Moreland MD at 16:46 EDT Reading Location ID and State: [address] [place] [address] , Service support , Assessment & Plan Assessment/Plan (1) DKA, type 1: PLAN: Plan Patient is a 22-year-old lady with history of diabetes mellitus type 1 presented with intractable nausea vomiting diagnosed with DKA admitted to the intensive care unit 1. Diabetic ketoacidosis ? Patient has been admitted to the intensive care unit management IV fluids, systemic insulin, serial monitoring of electrolytes and correction of electrolyte abnormalities. Patient progressed being monitored with every 4 BMP 2. Acute kidney injury ? Patient baseline creatinine 0.48 from BMP drawn on 11/07/2021. Creatinine on admission 1.49started on IV fluids serial monitoring of electrolytes ordered 3. Hypokalemia -Corrected per protocol 4. Hyponatremia ? Secondary to pseudohyponatremia from patient's hyperglycemia do expect rapid correction with treatment of underlying DKA 5. Depression with anxiety ? Patient is on as needed hydroxyzine 6. Mild intermittent asthma ? Aerosol treatments as needed 7. Polysubstance abuse ? Include occasional use of marijuana, Adderall as well as Suboxone, Cessation encouraged 8. Suspected acute cystitis ? Patient started on Rocephin urine culture sent Time spent in the patient's overall evaluation,decision-making process, review of diagnostic data, adjustment of management, discussion with other providers, nursing nursing and ancillary staff involved in patient's care documentation, 80 Minutes Charges/Coding Multi Select Codes Hospitalists' Procedures Procedures: 84698 Critial Care 1st Hr and 50279 Critial Care Addl 30 Min
[2023-02-15] MEDS: proCHLORPERazine 10 MG/2 ML Vial IV (17:09)
[2023-02-15 17:25] LABS: Bacteria 0 SEEN /hpf (None Seen); Mucous, Urine 0 SEEN /hpf (<or=2+); Red Blood Cells-Urine 0 SEEN /hpf (0-5); White Blood Cells 0 SEEN /hpf (0-5)
[2023-02-15 17:27] LABS: Color, Urine Yellow (Yellow); Glucose, Dipstick 1000 mg/dl (Normal); Leukocyte Esterase-Dipstick Negative /ul (Negative); Nitrite-Dipstick Negative (Negative); Occult Blood-Urine 50 /ul (Negative); Protein-Dipstick 30 mg/dl (Negative); Specific Gravity, Urine 1.025 (1.002-1.030); Urine Bilirubin Dipstick Negative (Negative); Urine Clarity Clear (Clear); Urine Urobilinogen Normal (Normal)
[2023-02-15] MEDS: Potassium Chloride 10mEq/100mL 10 MEQ/100 ML IV.SOLN. 100 MEQ IV BOLUS ×4 (17:28→20:29)
--- NOTE | 2023-02-15 17:32 | ED.RN ---
pt gave verbal consent to talk with friend vivien loco about care and admission. spoke with her via phone.
[2023-02-15 17:37] LABS: Differential Comment SCANNED
[2023-02-15 17:38] LABS: Ketone-Dipstick 150 mg/dl (Negative); Squamous Epithelial Cells - UA 0-5 SEEN /hpf (5-10)
[2023-02-15 17:56] LABS: Bedside Glucose 349 mg/dL (74-106)
[2023-02-15] MEDS: Ceftriaxone 1 GM/50 ML BAG IV (20:13)
[2023-02-15] MEDS: 0.9 % NaCl (Sterile) Posiflush 10 mL IV ×2 (20:18→23:51)
[2023-02-15 20:45] LABS: Anion Gap 15 (5-15); BUN 38 mg/dL (7-18); BUN/Creat Ratio 35.5 RATIO (10-20); Calcium,Total 7.3 mg/dL (8.5-10.1); Chloride 105 mmol/L (98-107); Creatinine, Serum 1.07 mg/dL (0.55-1.02); EST Glomerular Filtration Rate 67 mL/min (>60); Est Glom Filt Rate - Afr Amer 80 mL/min (>60); Estimated Creatinine Clearance 74.42 ml/min; Glucose 203 mg/dL (74-106); Potassium 3.6 mmol/L (3.5-5.1); Sodium Level 135 mmol/L (136-145)
[2023-02-15] MEDS: KCL 20MEQ in D5.45NS 20 MEQ/1,000 ML IV.SOLN. 250 MEQ IV (21:12)
[2023-02-16] VITALS (14 sets, daily range): BP systolic 115–156; BP diastolic 64–94; PULSE 89–111; RESP 18–28; TEMP 36.6–37.2; O2SAT 98–100; BMI 26.4
[2023-02-16 00:19] LABS: Anion Gap 10 (5-15); BUN 31 mg/dL (7-18); BUN/Creat Ratio 26.5 RATIO (10-20); Calcium,Total 7.5 mg/dL (8.5-10.1); Chloride 105 mmol/L (98-107); Creatinine, Serum 1.17 mg/dL (0.55-1.02); EST Glomerular Filtration Rate 60 mL/min (>60); Est Glom Filt Rate - Afr Amer 73 mL/min (>60); Estimated Creatinine Clearance 68.06 ml/min; Glucose 260 mg/dL (74-106); Potassium 3.3 mmol/L (3.5-5.1); Sodium Level 135 mmol/L (136-145)
[2023-02-16] MEDS: KCL 20MEQ in D5.45NS 20 MEQ/1,000 ML IV.SOLN. 250 MEQ IV ×2 (01:11→04:52)
[2023-02-16 01:38] LABS: Bedside Glucose 240 mg/dL (74-106)
[2023-02-16 01:38] LABS: Bedside Glucose 212 mg/dL (74-106)
[2023-02-16 01:38] LABS: Bedside Glucose 276 mg/dL (74-106)
[2023-02-16 01:38] LABS: Bedside Glucose 247 mg/dL (74-106)
[2023-02-16 01:38] LABS: Bedside Glucose 213 mg/dL (74-106)
[2023-02-16 01:38] LABS: Bedside Glucose 220 mg/dL (74-106)
[2023-02-16 01:38] LABS: Bedside Glucose 218 mg/dL (74-106)
[2023-02-16 01:38] LABS: Bedside Glucose 232 mg/dL (74-106)
[2023-02-16 04:03] LABS: Absolute Lymphocyte Count 0.74 X10^3/uL (0.83-4.51); Absolute Neutrophil Count 10.1 X10^3/uL (2.0-7.7); Basophil# 0.02 X10^3/uL; Basophil% 0.2 % (0-1); Hematocrit 34.9 % (37-47); Hemoglobin 12.7 g/dL (12.0-15.0); Lymphocyte # 0.74 X10^3/ul (0.83-4.51); Lymphocyte % 6.5 % (19-41); Mean Corp Hgb Conc 36.4 g/dL (32-36); Mean Corpuscular Hgb 28.9 pg (27.0-32.0); Mean Corpuscular Volume 79.5 fL (81-99); Mean Platelet Vol. 8.6 fl (6.2-12.0); Monocyte# 0.58 X10^3/uL; Monocyte% 5.1 % (0-10); NRBC Flagged by Analyzer 0 % (0-5); Neutrophil % 87.9 % (47-70); Platelet Count 322 K/mm3 (150-450); RBC Distribution Width SD 36.5 fl (35.1-43.9); Red Blood Count 4.39 M/mm3 (4.2-5.4); White Blood Count 11.5 K/mm3 (4.4-11.0)
[2023-02-16 04:29] LABS: Anion Gap 8 (5-15); BUN 23 mg/dL (7-18); BUN/Creat Ratio 22.5 RATIO (10-20); Calcium,Total 7.7 mg/dL (8.5-10.1); Chloride 108 mmol/L (98-107); Creatinine, Serum 1.02 mg/dL (0.55-1.02); EST Glomerular Filtration Rate 70 mL/min (>60); Est Glom Filt Rate - Afr Amer 85 mL/min (>60); Estimated Creatinine Clearance 78.07 ml/min; Glucose 186 mg/dL (74-106); Phosphorus 0.7 mg/dL (2.5-4.9); Sodium Level 138 mmol/L (136-145)
[2023-02-16] MEDS: Potassium Chloride 20mEq/100mL 20 MEQ/100 ML IV.SOLN. 100 MEQ IV BOLUS ×2 (04:53→06:05)
[2023-02-16] MEDS: Insulin Glargine-YFGN 100 UNIT/ML Pen 15 UNIT SC ×2 (04:55→22:01)
[2023-02-16] MEDS: Insulin Lispro 100 UNIT/ML INSULN.PEN 20 UNIT SC ×3 (06:06→22:00)
[2023-02-16] MEDS: 0.9 % NaCl (Sterile) Posiflush 10 mL IV ×3 (06:46→11:06)
[2023-02-16 07:01] LABS: Bedside Glucose 179 mg/dL (74-106)
[2023-02-16 07:01] LABS: Bedside Glucose 181 mg/dL (74-106)
[2023-02-16 07:01] LABS: Bedside Glucose 160 mg/dL (74-106)
[2023-02-16 07:02] LABS: Bedside Glucose 177 mg/dL (74-106)
[2023-02-16 07:02] LABS: Bedside Glucose 127 mg/dL (74-106)
--- NOTE | 2023-02-16 07:34 | PCM.PN.HOSP ---
Reason for Visit Reason for Visit: Diagnoses Type 1 diabetes mellitus with ketoacidosis without coma (02/15/23) Subjective Subjective Patient is a 22-year-old lady with history of diabetes mellitus type 1 presented with intractable nausea vomiting diagnosed with DKA Objective Data Objective Data Vital Signs: Vital Signs Temp Pulse Resp BP Pulse Ox O2 Del Method 98 F 101 H 28 H 135/77 H 100 Room Air 02/16/23 06:00 02/16/23 06:00 02/16/23 06:00 02/16/23 06:00 02/16/23 06:00 02/16/23 06:00 Oxygen Delivery Method Room Air Weight: 59.602 kg Body Mass Index (BMI) 26.4 Intake & Output: Intake and Output for Last 24 Hours 02/14/23 02/15/23 02/16/23 23:59 23:59 23:59 Intake Total 3462.74 / 3462.74 2578.94 / 2578.94 Output Total 500 / 500 870 / 870 Balance 2962.74 / 2962.74 1708.94 / 1708.94 Lab / Micro Data 02/16/23 03:50 02/16/23 03:50 Labs: Laboratory Results - last 24 hr 02/15/23 14:21: POC Glucose > 500 H* 02/15/23 16:05: WBC 23.4 H, RBC 5.61 H, Hgb 16.1 H, Hct 44.8, MCV 79.9 L, MCH 28.7, MCHC 35.9, RDW Std Deviation 35.8, RDW Coeff of Marilynn 12.7, Plt Count 548 H, MPV 8.8, Immature Gran % (Auto) 0.900, Neut % (Auto) 89.7 H, Lymph % (Auto) 4.2 L, Leslie % (Auto) 4.9, Eos % (Auto) 0.0, Baso % (Auto) 0.3, Absolute Neuts (auto) 21.0 H, Absolute Lymphs (auto) 0.98, Nucleated RBC % 0, Differential Comment SCANNED, Sodium 127 L, Potassium 2.8 L, Chloride 86 L, Carbon Dioxide 12.0 L, Anion Gap 29 H, BUN 55 H, Creatinine 1.49 H, Estim Creat Clear Calc 54.87, Est GFR (MDRD) Af Amer 55 L, Est GFR (MDRD) Non-Af 45 L, BUN/Creatinine Ratio 36.9 H, Glucose 443 H, Lactic Acid 1.5, Calcium 8.6, Total Bilirubin 1.10 H, AST 13 L, ALT 17, Alkaline Phosphatase 151 H, Total Protein 7.9, Albumin 3.9, Globulin 4.0, Albumin/Globulin Ratio 1.0, Lipase < 10 L, Serum , Qual NEGATIVE, Acetone Level LARGE H 02/15/23 16:36: POC Glucose 438 H 02/15/23 17:20: Urine Color Yellow, Urine Clarity Clear, Urine pH 5.0, Ur Specific Landers 1.025, Urine Protein 30 H, Urine Glucose (UA) 1000 H, Urine Ketones 150 A*, Urine Occult Blood 50 H, Urine Nitrite Negative, Urine Bilirubin Negative, Urine Urobilinogen Normal, Ur Leukocyte Esterase Negative, Urine RBC 0 SEEN, Urine WBC 0 SEEN, Ur Squamous Epith Cells 0-5 SEEN, Urine Bacteria 0 SEEN, Urine Mucus 0 SEEN 02/15/23 17:31: POC Glucose 349 H 02/15/23 18:25: POC Glucose 276 H 02/15/23 19:32: POC Glucose 212 H 02/15/23 20:19: Sodium 135 L, Potassium 3.6, Chloride 105, Carbon Dioxide 15.0 L, Anion Gap 15, BUN 38 H, Creatinine 1.07 H, Estim Creat Clear Calc 74.42, Est GFR (MDRD) Af Amer 80, Est GFR (MDRD) Non-Af 67, BUN/Creatinine Ratio 35.5 H, Glucose 203 H, Calcium 7.3 L 02/15/23 20:27: POC Glucose 213 H 02/15/23 21:26: POC Glucose 218 H 02/15/23 22:26: POC Glucose 232 H 02/15/23 23:28: POC Glucose 247 H 02/15/23 23:57: Sodium 135 L, Potassium 3.3 L, Chloride 105, Carbon Dioxide 20.0 L, Anion Gap 10, BUN 31 H, Creatinine 1.17 H, Estim Creat Clear Calc 68.06, Est GFR (MDRD) Af Amer 73, Est GFR (MDRD) Non-Af 60, BUN/Creatinine Ratio 26.5 H, Glucose 260 H, Calcium 7.5 L 02/16/23 00:23: POC Glucose 240 H 02/16/23 01:15: POC Glucose 220 H 02/16/23 02:34: POC Glucose 179 H 02/16/23 03:42: POC Glucose 181 H 02/16/23 03:50: WBC 11.5 H, RBC 4.39, Hgb 12.7, Hct 34.9 L, MCV 79.5 L, MCH 28.9, MCHC 36.4 H, RDW Std Deviation 36.5, RDW Coeff of Marilynn 13.0, Plt Count 322, MPV 8.6, Immature Gran % (Auto) 0.300, Neut % (Auto) 87.9 H, Lymph % (Auto) 6.5 L, Leslie % (Auto) 5.1, Eos % (Auto) 0.0, Baso % (Auto) 0.2, Absolute Neuts (auto) 10.1 H, Absolute Lymphs (auto) 0.74 L, Nucleated RBC % 0, Sodium Cancelled 02/16/23 03:50: Sodium 138, Potassium Cancelled 02/16/23 03:50: Potassium 3.0 L, Chloride Cancelled 02/16/23 03:50: Chloride 108 H, Carbon Dioxide Cancelled 02/16/23 03:50: Carbon Dioxide 22.0, Anion Gap Cancelled 02/16/23 03:50: Anion Gap 8, BUN Cancelled 02/16/23 03:50: BUN 23 H, Creatinine Cancelled 02/16/23 03:50: Creatinine 1.02, Estim Creat Clear Calc Cancelled 02/16/23 03:50: Estim Creat Clear Calc 78.07, Est GFR (MDRD) Af Amer Cancelled 02/16/23 03:50: Est GFR (MDRD) Af Amer 85, Est GFR (MDRD) Non-Af Cancelled 02/16/23 03:50: Est GFR (MDRD) Non-Af 70, BUN/Creatinine Ratio Cancelled 02/16/23 03:50: BUN/Creatinine Ratio 22.5 H, Glucose Cancelled 02/16/23 03:50: Glucose 186 H, Calcium Cancelled 02/16/23 03:50: Calcium 7.7 L, Phosphorus 0.7 L*, Magnesium 2.0 02/16/23 04:38: POC Glucose 160 H 02/16/23 05:31: POC Glucose 177 H 02/16/23 06:30: POC Glucose 127 H Radiography Diagnostic Testing: Radiology Impression Chest X-Ray 02/15/23 16:00 IMPRESSION: New left IJ catheter in the SVC. No pneumothorax. Electronically Signed: Guillermo Moreland MD at 16:46 EDT Reading Location ID and State: [address] [place] [address] , Service support , Physical Exam Narrative GENERAL: Cooperative HEENT: Atraumatic; dry oral mucosa EYES; Anicteric, Normal Conjunctiva NECK; supple, normal thyroid, RESPIRATORY: Diminished to auscultation CARDIOVASCULAR: Regular S1 S2, GI: soft, normoactive bowel sounds, : No Renal angle tenderness; EXTREMITIES: No edema, no clubbing, MUSCULOSKELETAL: no muscle wasting NEURO: Awake; no lateralizing signs. SKIN: No Rash PSYCH; Flat affect Assessment & Plan Assessment/Plan (1) DKA, type 1: QUALIFIERS: Diabetes mellitus complication detail: without coma Qualified Code(s): E10.10 - Type 1 diabetes mellitus with ketoacidosis without coma PLAN: Plan Patient is a 22-year-old lady with history of diabetes mellitus type 1 presented with intractable nausea vomiting diagnosed with DKA admitted to the intensive care unit 1. Diabetic ketoacidosis ? Patient has been admitted to the intensive care unit management IV fluids, systemic insulin, serial monitoring of electrolytes and correction of electrolyte abnormalities. Patient progressed being monitored with every 4 BMP -02/16/2023; DKA resolved. Patient started on her scheduled long-acting insulin in addition to Accu-Cheks before meals and at bedtime with sliding scale coverage 2. Acute kidney injury ? Patient baseline creatinine 0.48 from BMP drawn on 11/07/2021. Creatinine on admission 1.49started on IV fluids serial monitoring of electrolytes ordered ? 02/16/2023 [place] resolved 3. Hypokalemia -Corrected per protocol ? 02/16/2023; hypokalemia persist additional potassium given 4. Hyponatremia ? Secondary to pseudohyponatremia from patient's hyperglycemia do expect rapid correction with treatment of underlying DKA -? 02/16/2023; sodium levels up to 138 5. Depression with anxiety ? Patient is on as needed hydroxyzine 6. Mild intermittent asthma ? Aerosol treatments as needed 7. Polysubstance abuse ? Include occasional use of marijuana, Adderall as well as Suboxone, Cessation encouraged 8. Suspected acute cystitis ? Patient started on Rocephin urine culture sent ? 02/16/2023; urinalysis was negative for acute cystitis antibiotics discontinued 9. DVT prophylaxis ? Did encourage early ambulation Time spent in the patient's overall evaluation,decision-making process, review of diagnostic data, adjustment of management, discussion with other providers, nursing nursing and ancillary staff involved in patient's care documentation, 50 Minutes Charges/Coding Visit Charges Inpatient E&M: [id number] [facility] L3
[2023-02-16 08:15] LABS: Bedside Glucose 100 mg/dL (74-106)
[2023-02-16 10:25] LABS: Bedside Glucose 152 mg/dL (74-106)
[2023-02-16] MEDS: Ondansetron 4 MG/2 ML Vial IV (11:05)
[2023-02-16] MEDS: Insulin Glargine-YFGN 100 UNIT/ML Pen 10 UNIT SC (11:06)
[2023-02-16] MEDS: Glucerna Shake 120 ML LIQUID PO ×2 (14:10→18:01)
--- NOTE | 2023-02-16 14:29 | NURSING ---
POCT glucose 271. 20 units humalog ordered scheduled. Patient has poor appetite and nausea. States she will try to drink glucerna but is not sure she can finish it. MD notified. Per Dr. Akhtar, give half dose. Will ctm
[2023-02-16 14:38] LABS: Bedside Glucose 271 mg/dL (74-106)
[2023-02-16 16:39] LABS: Bedside Glucose 162 mg/dL (74-106)
[2023-02-16] MEDS: proMETHazine 25 MG/ML Syringe IM (17:50)
[2023-02-16] MEDS: Potassium Chloride Oral Tablet 20 MEQ PO (17:59)
[2023-02-16] MEDS: hydrOXYzine PAM 25 MG Capsule PO (21:57)
[2023-02-16 23:30] LABS: Bedside Glucose 238 mg/dL (74-106)
[2023-02-17 01:12] VITALS: BP 135/76; PULSE 102; RESP 24; TEMP 37.6; O2SAT 98
[2023-02-17] MEDS: Ondansetron 4 MG/2 ML Vial IV (01:44)
[2023-02-17] MEDS: Acetaminophen 325 MG Tablet 650 MG PO (01:44)
[2023-02-17] MEDS: 0.9% Saline Lock 10 ML Syringe IV ×2 (01:47→02:15)
[2023-02-17 01:57] LABS: Bedside Glucose 52 mg/dL (74-106)
[2023-02-17] MEDS: Dextrose 50%-Water 25 GM/50 ML DISP.SYRIN IV (02:08)
[2023-02-17 02:18] LABS: Bedside Glucose 60 mg/dL (74-106)
[2023-02-17 03:26] LABS: Bedside Glucose 159 mg/dL (74-106)
[2023-02-17 06:00] VITALS: BMI 26.7
[2023-02-17 06:05] LABS: Absolute Lymphocyte Count 1.41 X10^3/uL (0.83-4.51); Absolute Neutrophil Count 7.4 X10^3/uL (2.0-7.7); Basophil# 0.01 X10^3/uL; Basophil% 0.1 % (0-1); Hematocrit 34.9 % (37-47); Hemoglobin 12.4 g/dL (12.0-15.0); Lymphocyte # 1.41 X10^3/ul (0.83-4.51); Lymphocyte % 14.8 % (19-41); Mean Corp Hgb Conc 35.5 g/dL (32-36); Mean Corpuscular Hgb 28.8 pg (27.0-32.0); Mean Corpuscular Volume 81.2 fL (81-99); Mean Platelet Vol. 8.9 fl (6.2-12.0); Monocyte# 0.69 X10^3/uL; Monocyte% 7.2 % (0-10); NRBC Flagged by Analyzer 0 % (0-5); Neutrophil # 7.39 X10^3/uL (2.7-7.7); Neutrophil % 77.6 % (47-70); Platelet Count 286 K/mm3 (150-450); RBC Distribution Width CV 13.2 % (11.6-14.6); RBC Distribution Width SD 38.6 fl (35.1-43.9); White Blood Count 9.5 K/mm3 (4.4-11.0)
[2023-02-17 06:34] LABS: Anion Gap 7 (5-15); BUN 10 mg/dL (7-18); BUN/Creat Ratio 15.9 RATIO (10-20); Calcium,Total 8.4 mg/dL (8.5-10.1); Chloride 105 mmol/L (98-107); Creatinine, Serum 0.63 mg/dL (0.55-1.02); EST Glomerular Filtration Rate 123 mL/min (>60); Est Glom Filt Rate - Afr Amer 148 mL/min (>60); Estimated Creatinine Clearance 129.56 ml/min; Glucose 136 mg/dL (74-106); Potassium 2.9 mmol/L (3.5-5.1); Sodium Level 139 mmol/L (136-145)
[2023-02-17 06:49] VITALS: BP 136/80; PULSE 88; RESP 24; TEMP 37; O2SAT 99
[2023-02-17 07:46] VITALS: O2SAT 100
[2023-02-17 08:54] LABS: Phosphorus 1.3 mg/dL (2.5-4.9)
--- NOTE | 2023-02-17 09:45 | PCM.DC ---
Discharge Instructions Diet Discharge Diet: - (Resume previous diet) Activity Discharge Activity: Return to Normal Activity Weight Bearing Status: Full weight bearing Follow Up Care Test Results: Test results from this visit will be discussed in further detail at your follow-up appointment, if applicable. Discharge Plan Admission Admit Date/Time: 02/15/23 16:58 Primary Reason for Your Visit: DKA Attending Provider: Jesus Pineda Primary Care Provider: Erika Sen Consulting Providers: David Akhtar Discharge Orders/Prescriptions Prescriptions: Continued insulin aspart U-100 [Novolog FlexPen U-100 Insulin] 100 unit/mL (3 mL) insulin pen 20 unit subcut TID Qty: 18 2RF hydroxyzine pamoate [Vistaril] 25 mg capsule 25 mg PO QHS Qty: 30 6RF albuterol sulfate [Ventolin HFA] 18 GM HFA aerosol inhaler 2 puff inhalation Q4H PRN (Reason: SHORTNES OF BREATH/WHEEZING) fluticasone propionate 50 mcg/actuation spray,suspension 2 spray INTRANASAL DAILY (DME) Dexcom G6 Sensor Device See Rx Instructions .Route Qty: 10 5RF Rx Instructions: As directed (DME) Dexcom G6 Transmitter Device See Rx Instructions .Route Qty: 1 3RF Rx Instructions: As directed (DME) pen needle, diabetic [BD Ultra-Fine Opal Pen Needle] 32 gauge x 5/32 needle See Rx Instructions .ROUTE .MEDSUPPLY Qty: 120 5RF Rx Instructions: 4 times daily (DME) Omnipod 5 G6 Pods (Gen 5) Cartridge See Rx Instructions .Route Qty: 45 1RF Rx Instructions: change every 48-72 hours (DME) Omnipod 5 G6 Intro Kit (Gen 5) Cartridge See Rx Instructions .Route Qty: 1 0RF Rx Instructions: As directed insulin glargine [Basaglar KwikPen U-100 Insulin] 100 unit/mL (3 mL) insulin pen 15 unit subcut BID Qty: 15 0RF (DME) Ketone Urine Test Strip See Rx Instructions .ROUTE .MEDSUPPLY Qty: 50 1RF Rx Instructions: once/day Discontinued insulin aspart U-100 100 unit/mL solution 100 unit continuous subcutaneous infusion .continuous Qty: 90 1RF Referrals / Follow Up: Erika Sen MD [Primary Care Provider] - (Get your potassium rechecked) Pj Chow MD [Med Staff - Courtesy Staff] - See Referral Note (As scheduled) Disposition Disposition (needs filled in before D/C Order can be placed): Home, Self Care
--- NOTE | 2023-02-17 09:51 | PCM.DC.SUM ---
Providers Date of Admission: 02/15/23 Date of Discharge: 02/17/23 Primary Care Physician: Dr. Erika Sen MD Reason For Visit: DKA Diagnosis Discharge Diagnosis (1) DKA, type 1: Status: Acute Code(s): E10.10 - Type 1 diabetes mellitus with ketoacidosis without coma Qualifiers: Diabetes mellitus complication detail: without coma Qualified Code(s): E10.10 - Type 1 diabetes mellitus with ketoacidosis without coma Plan Final diagnosis #1 diabetic ketoacidosis secondary to type 1 diabetes #2 hypophosphatemia #3 hypokalemia #4 uncontrolled type 1 diabetes #5 acute kidney injury secondary to diabetic ketoacidosis Medications at Discharge Home Medications albuterol sulfate 90 mcg/actuation aerosol inhaler (Ventolin HFA) 2 puff inhalation Q4H PRN SHORTNES OF BREATH/WHEEZING 08/25/18 Ketone Urine Test (acetone (urine) test) #50 ea 11/05/21 fluticasone propionate 50 mcg/actuation nasal spray,suspension 2 spray intranasal DAILY NASAL CONGESTION 11/21/22 blood-glucose sensor (Dexcom G6 Sensor device) #10 ea 11/23/22 blood-glucose transmitter (Dexcom G6 Transmitter device) #1 ea 11/23/22 insulin glargine 100 unit/mL (3 mL) subcutaneous pen (Basaglar KwikPen U-100 Insulin) 15 unit (0.15 mL) subcut BID #15 mL 11/23/22 insulin pump cart,automated,BT (Omnipod 5 G6 Pods (Gen 5) subcutaneous cartridge) #45 ea 11/23/22 insulin pump cartridge,automated dose,BT with controller subcutaneous (Omnipod 5 G6 Intro Kit (Gen 5) subcutaneous cartridge with controller) #1 ea 11/23/22 pen needle, diabetic 32 gauge x 5/32 (BD Ultra-Fine Opal Pen Needle) #120 ea 11/23/22 hydroxyzine pamoate 25 mg capsule (Vistaril) 25 mg PO QHS ITCHING #30 caps 01/13/23 insulin aspart U-100 100 unit/mL (3 mL) subcutaneous pen (Novolog FlexPen U-100 Insulin aspart) 20 unit (0.2 mL) subcut TID #18 mL 01/13/23 Hospital Course Operations None Procedures None Summary of Care Provided Minutes Spent on Discharge: 31 Hospital Course: This 22-year-old white female was seen in the emergency room at [facility] with complaints of nausea and vomiting x48 hours, she has not been taking her medications as prescribed, she is a type I diabetic medic. Patient did not routinely check her sugar over the last 3 days. Patient's neighbors brought the patient to the emergency room for evaluation due to concerns of drug abuse due to her malaise. Work up in the emergency room included a blood sugar which was elevated at 527, patient's labs are abnormal for an anion gap of 29, creatinine was elevated at 1.49, potassium was 2.8, bicarbonate was 15. Patient's white blood cell count was elevated at 23.4. Urinalysis did not show evidence of urinary tract infection. Patient was felt to be in DKA, she was admitted to ICU on an insulin drip, blood sugars improved over the next several days and she was moved out to [facility]. On 02/17/2023, patient was seen and examined: On examination she appeared in good health and spirits, she does not appear to be in any distress. Vital signs as documented. Skin warm and dry and without overt rashes. Neck without JVD, thyroid appears normal, trachea is midline, neck is supple. Lungs clear, normal air movement was noted. Heart exam notable for regular rhythm, normal sounds and absence of murmurs, rubs or gallops. Abdomen unremarkable and without evidence of organomegaly, masses, or abdominal aortic enlargement, bowel sounds are present in all 4 quadrants, no abdominal tenderness was noted. Extremities nonedematous, no cyanosis was noted, no clubbing was noted. Neuro: Cranial nerves II through XII are grossly intact, no focal motor deficits were noted, sensation to light touch and pinprick is intact, motor exam 5/5 throughout. Psych: Patient is alert and oriented x3, she does not appear anxious or depressed, she does not appear agitated. Patient was felt to be stable for discharge home on 02/17/2023. Weight / BMI Weight Weight: 60.2 kg Body Mass Index (BMI) 26.7 ABG / Lab / Microbiology Data 02/17/23 05:32 02/17/23 05:32 Laboratory: Laboratory Results - last 24 hr 02/16/23 10:05: POC Glucose 152 H 02/16/23 14:07: POC Glucose 271 H 02/16/23 16:20: POC Glucose 162 H 02/16/23 21:46: POC Glucose 238 H 02/17/23 01:30: POC Glucose 52 L 02/17/23 01:58: POC Glucose 60 L 02/17/23 02:43: POC Glucose 159 H 02/17/23 05:32: WBC 9.5, RBC 4.30, Hgb 12.4, Hct 34.9 L, MCV 81.2, MCH 28.8, MCHC 35.5, RDW Std Deviation 38.6, RDW Coeff of Marilynn 13.2, Plt Count 286, MPV 8.9, Immature Gran % (Auto) 0.300, Neut % (Auto) 77.6 H, Lymph % (Auto) 14.8 L, [place] % (Auto) 7.2, Eos % (Auto) 0.0, Baso % (Auto) 0.1, Absolute Neuts (auto) 7.4, Absolute Lymphs (auto) 1.41, Nucleated RBC % 0, Sodium 139, Potassium 2.9 L, Chloride 105, Carbon Dioxide 27.0, Anion Gap 7, BUN 10, Creatinine 0.63, Estim Creat Clear Calc 129.56, Est GFR (MDRD) Af Amer 148, Est GFR (MDRD) Non-Af 123, BUN/Creatinine Ratio 15.9, Glucose 136 H, Calcium 8.4 L, Phosphorus 1.3 L D/C Instructions Discharge Diet: - (Resume previous diet) Weight Bearing Status: Full weight bearing Meaningful Use Info Meaningful Use Diagnoses (Choose all that apply): None applicable Discharge Plan Admission Admit Date/Time: 02/15/23 16:58 Primary Reason for Your Visit: DKA Attending Provider: Jesus Pineda Primary Care Provider: Erika Sen Consulting Providers: David Akhtar Discharge Orders/Prescriptions Prescriptions: Continued insulin aspart U-100 [Novolog FlexPen U-100 Insulin] 100 unit/mL (3 mL) insulin pen 20 unit subcut TID Qty: 18 2RF hydroxyzine pamoate [Vistaril] 25 mg capsule 25 mg PO QHS Qty: 30 6RF albuterol sulfate [Ventolin HFA] 18 GM HFA aerosol inhaler 2 puff inhalation Q4H PRN (Reason: SHORTNES OF BREATH/WHEEZING) fluticasone propionate 50 mcg/actuation spray,suspension 2 spray INTRANASAL DAILY (DME) Dexcom G6 Sensor Device See Rx Instructions .Route Qty: 10 5RF Rx Instructions: As directed (DME) Dexcom G6 Transmitter Device See Rx Instructions .Route Qty: 1 3RF Rx Instructions: As directed (DME) pen needle, diabetic [BD Ultra-Fine Opal Pen Needle] 32 gauge x 5/32 needle See Rx Instructions .ROUTE .MEDSUPPLY Qty: 120 5RF Rx Instructions: 4 times daily (DME) Omnipod 5 G6 Pods (Gen 5) Cartridge See Rx Instructions .Route Qty: 45 1RF Rx Instructions: change every 48-72 hours (DME) Omnipod 5 G6 Intro Kit (Gen 5) Cartridge See Rx Instructions .Route Qty: 1 0RF Rx Instructions: As directed insulin glargine [Basaglar KwikPen U-100 Insulin] 100 unit/mL (3 mL) insulin pen 15 unit subcut BID Qty: 15 0RF (DME) Ketone Urine Test Strip See Rx Instructions .ROUTE .MEDSUPPLY Qty: 50 1RF Rx Instructions: once/day Discontinued insulin aspart U-100 100 unit/mL solution 100 unit continuous subcutaneous infusion .continuous Qty: 90 1RF Referrals / Follow Up: Erika Sen MD [Primary Care Provider] - (Get your potassium rechecked) Pj Chow MD [Med Staff - Courtesy Staff] - 02/19/23 1:45 pm (As scheduled) Disposition Disposition (needs filled in before D/C Order can be placed): Home, Self Care Charges/Coding Visit Charges Inpatient E&M: 32557 Disch Hosp >30min
[2023-02-17 10:00] VITALS: BP 141/78; PULSE 98; RESP 18; TEMP 37.4; O2SAT 99
--- NOTE | 2023-02-17 10:27 | PHA.DC.MR.R ---
Pharmacy [place] Med Reconciliation Pharmacy Service has performed discharge medication reconciliation for this patient. The patient's discharge medication list was reviewed for discrepancies and discrepancies were resolved. Medications at Discharge Home Medications albuterol sulfate 90 mcg/actuation aerosol inhaler (Ventolin HFA) 2 puff inhalation Q4H PRN SHORTNES OF BREATH/WHEEZING 08/25/18 Ketone Urine Test (acetone (urine) test) #50 ea 11/05/21 fluticasone propionate 50 mcg/actuation nasal spray,suspension 2 spray intranasal DAILY NASAL CONGESTION 11/21/22 blood-glucose sensor (Dexcom G6 Sensor device) #10 ea 11/23/22 blood-glucose transmitter (Dexcom G6 Transmitter device) #1 ea 11/23/22 insulin glargine 100 unit/mL (3 mL) subcutaneous pen (Basaglar KwikPen U-100 Insulin) 15 unit (0.15 mL) subcut BID #15 mL 11/23/22 insulin pump cart,automated,BT (Omnipod 5 G6 Pods (Gen 5) subcutaneous cartridge) #45 ea 11/23/22 insulin pump cartridge,automated dose,BT with controller subcutaneous (Omnipod 5 G6 Intro Kit (Gen 5) subcutaneous cartridge with controller) #1 ea 11/23/22 pen needle, diabetic 32 gauge x 5/32 (BD Ultra-Fine Opal Pen Needle) #120 ea 11/23/22 hydroxyzine pamoate 25 mg capsule (Vistaril) 25 mg PO QHS ITCHING #30 caps 01/13/23 insulin aspart U-100 100 unit/mL (3 mL) subcutaneous pen (Novolog FlexPen U-100 Insulin aspart) 20 unit (0.2 mL) subcut TID #18 mL 01/13/23
[2023-02-17 10:30] VITALS: BP 141/86; PULSE 86; RESP 16; TEMP 37.4; O2SAT 100
[2023-02-17] MEDS: Potassium Chloride Oral Tablet 20 MEQ PO (10:34)
--- NOTE | 2023-02-17 11:17 | CASEMGMT ---
RN?CM?SPA CONCIERGE?CM?to room to meet with patient for initial transition planning/care coordination?assessment.?RN?CM?introduced self and role at [facility].? Pt voices understanding and consents to?assessment?at this time.? Pt resting in bed in no distress at this time.? Pt is A/O at this time and answers all questions appropriately.?? Care providers, pharmacy, and demographics verified/updated at this time. PCP: Dr Sen Specialists: Dr Chow. Pt had an appt 01/13 that she did not go to. 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 She is not sure if she called them to let them know what happened and has not re-scheduled another appt w/her. She was made aware Dr Chow's office will discharge her and not allow her to come back after a certain amt of no-shows. She voices understanding and states this is the 1st one she has been a no-show to. Preferred Pharmacy: [facility] Insurance: [employer] Prescription Benefit:?Yes Living Will/HPOA:?Pt does not have a LW, but does have a HCPOA on file. Her fiance, Lee Forrester, is listed as her HCPOA. Lee is not listed on pt's demographics. She states he has changed his phone number and she does not remember what it is. It is in her phone, but she does not have her phone on her. LNOK: Lee/david/HCPOA. Mother, Alla. Father. Living Arrangements: Lives w/her mother, her mother's BF, and her little sister in a mobile home w/4 steps to enter. Independent. Transportation:? Pt walks most places and states [facility] in [place] is w/in walking distance. Pt also has access to transportation through her insurance, and uses [facility] Spoke transp. Pt does not know how she is going to get home today. Call to [facility] Van and appt scheduled for 12:30 today to take pt home. DME: ?States has the following DME:?Dexcom CGM system. Pt states she has all the supplies needed for it and insulin/medications needed. She states she is almost out of pen needles. Call to [facility] who states there are refills remaining on file. Pt made aware. ?Pt states no need for further DME at this time.? HHC/SNF: No hx of either. Pt wishes to return home and states has no concerns with going home at time of discharge.? CM?to follow for any further discharge planning/needs.? Pt voices no further concerns/needs at this time.? Advised pt to ask for?CM?if any further questions/concerns/needs arise.? Voices understanding. PLAN:??Home. Melissa BSN?RN?CM
--- NOTE | 2023-02-17 11:35 | CASEMGMT ---
Addendum entered by Bren Chery 02/17/23 12:25: Nurse made aware pt will not be able to dc at 12:30 as planned for [facility]. TC to [facility] [employer] [facility], spoke with [place], transportation time changed to 1pm. Nurse updated and states this is feasible. Original Note: TC to 's office to reschedule appt for pt. She states someone had already called in and pt has an appt on Feb 19 at 1:45. TC to [facility] transportation, they do not have availability for this. TC to pt insurance , scheduled trip #[id number]. They will arrive between 1-1:30pm and pick back up at 2:45pm. No assigned professional driver yet. If pt wants to call in tomorrow to have determined professional driver, she may. RN CM into pt room, pt nurse at bedside. Reviewed the above with patient and placed on dc instructions. Pt verbalized understanding.
[2023-02-17] MEDS: Potassium Chloride Oral Tablet 20 MEQ 40 MEQ PO (11:36)
[2023-02-17] MEDS: Insulin Glargine-YFGN 100 UNIT/ML Pen 15 UNIT SC (11:43)
--- NOTE | 2023-02-17 12:27 | NURSING ---
Pt refused insulin Glargine YFGN 15 units scheduled this morning, see EMAR. After Blood sugar was taken and it was 224, this Nurse went to give her the Humalog 20 units but pt refused as she did not feel like eating lunch. This RN talked in length about eating something even if it was something small and getting insulin. Pt continued to refuse. This nurse was able to talk her into getting the Glargine YFGN 15 units and take that since she will not take her 20 units.
[2023-02-17 12:41] LABS: Bedside Glucose 224 mg/dL (74-106)
== END 2023-02-17 12:55 | disposition home or self-care (01) | DRG 420 ==
LOC: ED 17:13 → ICU 17:29 → MS3 02-16 11:50
PROVIDERS: Nurse Practitioner; Admitting Provider Internal Medicine; Emergency Provider Emergency Medicine; PCP Internal Medicine; Visit Provider Internal Medicine
DX: E10.10 Type 1 diabetes mellitus with ketoacidosis without coma (principal); E83.39 Other disorders of phosphorus metabolism; N17.9 Acute kidney failure, unspecified; Z79.4 Long term (current) use of insulin; E87.6 Hypokalemia; F32.A Depression, unspecified; F41.9 Anxiety disorder, unspecified; J45.20 Mild intermittent asthma, uncomplicated; F12.10 Cannabis abuse, uncomplicated; Z96.41 Presence of insulin pump (external) (internal); Z79.51 Long term (current) use of inhaled steroids; Z79.899 Other long term (current) drug therapy
CPT/HCPCS: 36415; 36556; 71045; 80048; 80053; 81001; 82009; 82962; 83605; 83690; 83735; 84100; 84703; 85025; 93005; 97802; 99285; J7030; J7050; P9612; A4216; J2405

== ENCOUNTER 2023-03-01 22:11 | Emergency (ER) | payer MEDICAID, SELFPAY ==
[2023-03-01 22:12] VITALS: BP 143/110; PULSE 135; RESP 18; TEMP 36.6; O2SAT 98; BMI 24.5
--- NOTE | 2023-03-01 22:46 | RAD_ITS ---
INDICATION: cough EXAMINATION/TECHNIQUE: X-RAY - XR Chest 2 Views COMPARISON: Chest radiograph 12/25/2022. Findings: Frontal and lateral views of the chest. LUNG PARENCHYMA: No acute focal airspace disease or mass lesion. PLEURA: No pleural effusion. No pneumothorax. HEART/GREAT VESSELS: Cardiomediastinal silhouette is unremarkable. BONES: Osseous structures are unremarkable for age. RAD/Chest PA and Lateral IMPRESSION: Chest with no acute disease. Electronically Signed: Davidson Griffith MD at 0:24 EDT ,
[2023-03-01 23:00] LABS: Bedside Glucose 289 mg/dL (74-106)
[2023-03-01] MEDS: 0.9% Normal Saline 1,000 ML 999 ML IV (23:08)
[2023-03-01] MEDS: Ondansetron 4 MG/2 ML Vial IV (23:17)
[2023-03-01 23:18] LABS: Mucous, Urine 0 SEEN /hpf (<or=2+); Red Blood Cells-Urine 0 SEEN /hpf (0-5); Squamous Epithelial Cells - UA 0 SEEN /hpf (5-10); White Blood Cells 0 SEEN /hpf (0-5)
[2023-03-01 23:25] LABS: Color, Urine Yellow (Yellow); Glucose, Dipstick 1000 mg/dl (Normal); Leukocyte Esterase-Dipstick Negative /ul (Negative); Nitrite-Dipstick Negative (Negative); Occult Blood-Urine 10 /ul (Negative); Protein-Dipstick 30 mg/dl (Negative); Specific Gravity, Urine 1.025 (1.002-1.030); Urine Bilirubin Dipstick Negative (Negative); Urine Clarity Clear (Clear); Urine Urobilinogen Normal (Normal)
[2023-03-01 23:28] LABS: Ketone-Dipstick 150 mg/dl (Negative)
[2023-03-01 23:36] LABS: Bacteria RARE /hpf (None Seen); Internal QC Validated? YES +Cl - CLEAR BKGD; Pregnancy, Urine Negative Negative
[2023-03-02 00:11] VITALS: PULSE 119; RESP 18; O2SAT 98
[2023-03-02 00:18] LABS: AST(SGOT) 24 U/L (15-37); Alanine Aminotransfer ALT/SGPT 17 U/L (13-56); Alkaline Phosphatase 95 U/L (45-117); Anion Gap 15 (5-15); BUN 13 mg/dL (7-18); BUN/Creat Ratio 22.2 RATIO (10-20); Bilirubin, Direct 0.18 mg/dL (0.00-0.30); Calcium,Total 9.1 mg/dL (8.5-10.1); Chloride 96 mmol/L (98-107); Creatinine, Serum 0.59 mg/dL (0.55-1.02); EST Glomerular Filtration Rate 133 mL/min (>60); Est Glom Filt Rate - Afr Amer 161 mL/min (>60); Estimated Creatinine Clearance 128.13 ml/min; Globulin 4.3 g/dL (2.2-4.2); Glucose 321 mg/dL (74-106); Lipase 14 U/L (13-75); Potassium 4.4 mmol/L (3.5-5.1); Protein, Total 7.3 g/dL (6.4-8.2); Sodium Level 131 mmol/L (136-145)
[2023-03-02 00:19] LABS: Absolute Lymphocyte Count 0.43 X10^3/uL (0.83-4.51); Absolute Neutrophil Count 7.8 X10^3/uL (2.0-7.7); Basophil# 0.03 X10^3/uL; Basophil% 0.3 % (0-1); Hematocrit 40.1 % (37-47); Hemoglobin 12.9 g/dL (12.0-15.0); Lymphocyte # 0.43 X10^3/ul (0.83-4.51); Lymphocyte % 4.8 % (19-41); Mean Corp Hgb Conc 32.2 g/dL (32-36); Mean Corpuscular Hgb 27.9 pg (27.0-32.0); Mean Corpuscular Volume 86.6 fL (81-99); Mean Platelet Vol. 8.3 fl (6.2-12.0); Monocyte# 0.35 X10^3/uL; Monocyte% 3.9 % (0-10); NRBC Flagged by Analyzer 0 % (0-5); Neutrophil # 7.84 X10^3/uL (2.7-7.7); Neutrophil % 88.4 % (47-70); POSITIVE DIFFERENTIAL YES; Platelet Count 303 K/mm3 (150-450); RBC Distribution Width CV 12.8 % (11.6-14.6); Red Blood Count 4.63 M/mm3 (4.2-5.4); White Blood Count 8.9 K/mm3 (4.4-11.0)
[2023-03-02 00:20] LABS: Differential Indicated SCAN CRITERIA MET
[2023-03-02] MEDS: 0.9% Normal Saline 1,000 ML 999 ML IV (00:41)
--- NOTE | 2023-03-02 00:59 | CT_ITS ---
INDICATION: abd pain A radiation dose optimization technique was used for this scan. COMPARISON: 12/24/[address] IV Contrast dosage and agent: 100mL [id number] IV. Radiation CTDIvol 8.33 Radiation DLP 334.84 FINDINGS: Contrast enhanced serial CT axial images through the abdomen and pelvis with coronal and sagittal reformatted series. PANCREAS: No peripancreatic fat stranding. BOWEL/MESENTERY: No dilated bowel loops. No significant free fluid. No free air. GALLBLADDER: No pericholecystic fat stranding. LIVER/STOMACH: Circumferential distal esophageal wall thickening, suggesting esophagitis. URINARY COLLECTING SYSTEM/ KIDNEYS: No obstructing ureteral calculus. No significant renal parenchymal abnormality. LYMPH NODE: Prominent subcentimeter short axis retroperitoneal lymph nodes again noted. APPENDIX: Normal caliber appendix. LUNG BASES: Unremarkable. BONES: Unremarkable for age. CT/Abdomen/Pelvis W IV Cont ONLY IMPRESSION: Circumferential distal esophageal wall thickening, suggesting esophagitis. No other definite acute abdominal abnormality is identified, to include normal appendix and no evidence of obstructing ureteral calculus. Electronically Signed: Davidson Griffith MD at 2:35 EDT ,
[2023-03-02] MEDS: Ondansetron 4 MG/2 ML Vial IV (01:12)
[2023-03-02] MEDS: Ketorolac 30 MG/ML Syringe IV (01:13)
--- NOTE | 2023-03-02 01:58 | EDS_ITS ---
HPI History of Present Illness Chief Complaint: General Illness Informant: patient Narrative Narrative: Patient is a 22-year-old female with past medical history of type 1 diabetes. She was recently admitted to the hospital secondary to dehydration and DKA. Patient states that she has been doing well but over the last 2 to 4 days has had generalized upper abdominal discomfort with bouts of nausea and vomiting. She states her blood sugars have now been running high. She denies any dysuria vaginal discharge concern for or STD but with persistent abdominal discomfort and bouts of vomiting she is concerned that she may have developed an infection or be in DKA once again and therefore comes to the hospital for evaluation [facility] Medical History Anxiety and depression Anxiety and depression Asthma Asthma Cannabis hyperemesis syndrome concurrent with and due to cannabis abuse Diabetes type 1, controlled DKA, type 1 History of marijuana use Hypokalemia Hypophosphatemia Implanon in place Insulin pump titration Presence of insulin pump Home Medications albuterol sulfate 90 mcg/actuation aerosol inhaler (Ventolin HFA) 2 puff inhalation Q4H PRN SHORTNES OF BREATH/WHEEZING 08/25/18 [History Last Taken 05/12/19] Ketone Urine Test (acetone (urine) test) #50 ea 11/05/21 [Rx Last Taken Unknown] fluticasone propionate 50 mcg/actuation nasal spray,suspension 2 spray intranasal DAILY NASAL CONGESTION 11/21/22 [History Last Taken 02/12/23] blood-glucose sensor (Dexcom G6 Sensor device) #10 ea 11/23/22 [Rx Last Taken Unknown] blood-glucose transmitter (Dexcom G6 Transmitter device) #1 ea 11/23/22 [Rx Last Taken Unknown] insulin pump cart,automated,BT (Omnipod 5 G6 Pods (Gen 5) subcutaneous cartridge) #45 ea 11/23/22 [Rx Last Taken Unknown] insulin pump cartridge,automated dose,BT with controller subcutaneous (Omnipod 5 G6 Intro Kit (Gen 5) subcutaneous cartridge with controller) #1 ea 11/23/22 [Rx Last Taken Unknown] pen needle, diabetic 32 gauge x 5/32 (BD Ultra-Fine Opal Pen Needle) #120 ea 11/23/22 [Rx Last Taken Unknown] hydroxyzine pamoate 25 mg capsule (Vistaril) 25 mg PO QHS ITCHING #30 caps 01/13/23 [Rx Last Taken 02/12/23] insulin aspart U-100 100 unit/mL (3 mL) subcutaneous pen (Novolog FlexPen U-100 Insulin aspart) 15 unit subcut TID 03/01/23 [History Last Taken Unknown] insulin glargine 100 unit/mL (3 mL) subcutaneous pen (Basaglar KwikPen U-100 Insulin) 20 unit subcut QHS 03/01/23 [History Last Taken Unknown] famotidine 20 mg tablet (Pepcid) 20 mg PO BID 30 days #60 tabs 03/02/23 [Rx Last Taken Unknown] promethazine 25 mg tablet 25 mg PO TID PRN nausea and vomiting #21 tabs 03/02/23 [Rx Last Taken Unknown] sucralfate 1 gram tablet (Carafate) 1 g PO TID 30 days #90 tabs 03/02/23 [Rx Last Taken Unknown] Allergy/AdvReac Type Severity Reaction Status Date / Time bee venom protein (honey bee) Allergy Severe Anaphylaxis Verified 03/01/23 22:12 [bee stings] Penicillins Allergy Unknown Verified 03/01/23 22:12 Sulfa (Sulfonamide Allergy Unknown Verified 03/01/23 22:12 Antibiotics) prednisone AdvReac Vomiting Verified 03/01/23 22:12 Family History Grandmother Diabetes Sister Asthma Brother Asthma Mother Heart disease Surgical History History of placement of ear tubes Social History household members: family Smoking Status: Never smoker second hand exposure: No alcohol intake: never substance use type: other details: Cannabis, last use ~ 1 month prior, ingested. ROS ROS ED Constitutional Constitutional ED: Denies chills or fever(s) ENT ENT ED: Denies sore throat Cardiovascular Cardiovascular: Denies chest pain Respiratory/Chest Respiratory/Chest: Denies cough or dyspnea Gastrointestinal Gastrointestinal: Reports abdominal pain, nausea and vomiting; Denies diarrhea Genitourinary Genitourinary ED: Denies dysuria Musculoskeletal Musculoskeletal: Reports myalgias Integumentary Denies rash Neurologic Neurologic: Denies headache(s) Hematologic/Lymphatic Hematologic/Lymphatic: Denies easy bleeding or easy bruising EXAM Physical Exam Const Vital Signs: 03/01/23 22:12 03/01/23 22:44 03/02/23 00:11 Temperature 98 F Temperature Source Temporal Pulse Rate 135 H 119 H Respiratory Rate 18 18 Respiratory Effort Normal Non-Labored Respiratory Pattern Normal Blood Pressure 143/110 H Blood Pressure Mean 121 Pulse Ox 98 98 Oxygen Delivery Method Room Air Room Air 03/02/23 02:11 03/02/23 04:42 Temperature Temperature Source Pulse Rate 103 H 71 Respiratory Rate 16 18 Respiratory Effort Respiratory Pattern Blood Pressure 110/84 H Blood Pressure Mean Pulse Ox 98 100 Oxygen Delivery Method Room Air Positive well nourished and well developed General Appearance ED: well developed HEENT HEENT Narrative: Mucous membranes are slightly dry and tacky Eyes PERRL and EOMs intact bilaterally General Eye ED: Negative for scleral icterus Neck supple Neck Narrative: No nuchal rigidity or meningeal signs Resp normal respiratory effort and clear to auscultation bilaterally Cardio regular rhythm Rate: tachycardic and other Other Details: Tachycardic rate with regular rhythm Radial pulses are equal and symmetric GI non-distended GI Narrative: Abdomen is soft and nondistended with hyperactive bowel sounds. There is mild diffuse pain with palpation without voluntary guarding or rigidity Auscultation: hyperactive bowel sounds Palpation: soft Back/Spine Back/Spine Narrative: Mild bilateral CVA tenderness noted Extremity normal to inspection Extremity Narrative: No asymmetric edema no pitting edema negative Homans' sign bilaterally Neuro oriented x3, CN's II-XII intact bilaterally and no sensory deficits noted Sensorium / Orientation: alert Motor Exam: strength 5/5 throughout Psych mental status grossly normal Skin no rashes or lesions noted Skin Narrative: Skin turgor is increased General Skin Exam: Negative for jaundice MDM MDM MDM Narrative Medical decision making narrative: Patient presented to the ER afebrile but she was tachycardic and had complaints of nausea vomiting and generalized abdominal discomfort. Differential diagnosis is for viral gastroenteritis versus gastritis/esophagitis versus UTI versus pancreatitis versus biliary colic versus DKA or HHS. Secondary to this multiple laboratory studies were ordered. Patient does not have findings for DKA as her serum bicarb is only down by one-point her anion gap is normal and her venous blood gas pH is just slightly diminished at 7.32. Her serum osmolality is [address] of the abdomen and pelvis revealed changes consistent with esophagitis but no obstructive or infectious process. After patient was given 2 L of IV hydration as well as Zofran she had improvement of her nausea and was able to tolerate a oral challenge without difficulty. Therefore at this time as patient does not have findings concerning for HHS or DKA and other laboratory values do not suggest UTI or pyelonephritis biliary colic or acute pancreatitis I do not feel there is need for admission as she has been rehydrated and has improvement of her vitals and can tolerate food by mouth. Patient will be treated for esophagitis with Carafate and Pepcid but at this time as work-up does not indicate need for admission to be discharged home. Lab Data Attestation: I reviewed the patient's lab results. Labs: Laboratory Results - last 24 hr 03/01/23 03/01/23 03/01/23 22:42 23:10 23:15 WBC RBC Hgb Hct MCV MCH MCHC RDW Std Deviation RDW Coeff of Marilynn Plt Count MPV Immature Gran % (Auto) Neut % (Auto) Lymph % (Auto) [place] % (Auto) Eos % (Auto) Baso % (Auto) Absolute Neuts (auto) Absolute Lymphs (auto) Nucleated RBC % Sodium 131 L Potassium 4.4 Chloride 96 L Carbon Dioxide 20.0 L Anion Gap 15 BUN 13 Creatinine 0.59 Estim Creat Clear Calc 128.13 Est GFR (MDRD) Af Amer 161 Est GFR (MDRD) Non-Af 133 BUN/Creatinine Ratio 22.2 H Glucose 321 H Lactic Acid Calcium 9.1 Total Bilirubin 0.80 Direct Bilirubin 0.18 AST 24 ALT 17 Alkaline Phosphatase 95 Total Protein 7.3 Albumin 3.0 L Globulin 4.3 H Lipase 14 Urine Color Yellow Urine Clarity Clear Urine pH 5.0 Ur Specific [place] 1.025 Urine Protein 30 H Urine Glucose (UA) 1000 H Urine Ketones 150 A* Urine Occult Blood 10 H Urine Nitrite Negative Urine Bilirubin Negative Urine Urobilinogen Normal Ur Leukocyte Esterase Negative Urine RBC 0 SEEN Urine WBC 0 SEEN Ur Squamous Epith Cells 0 SEEN Urine Bacteria RARE Urine Mucus 0 SEEN Urine Test Negative Acetone Level MODERATE H POC Glucose 289 H 03/01/23 03/02/23 03/02/23 23:47 01:16 04:26 WBC 8.9 RBC 4.63 Hgb 12.9 Hct 40.1 MCV 86.6 MCH 27.9 MCHC 32.2 RDW Std Deviation 40.0 RDW Coeff of Marilynn 12.8 Plt Count 303 MPV 8.3 Immature Gran % (Auto) 2.600 H Neut % (Auto) 88.4 H Lymph % (Auto) 4.8 L [place] % (Auto) 3.9 Eos % (Auto) 0.0 Baso % (Auto) 0.3 Absolute Neuts (auto) 7.8 H Absolute Lymphs (auto) 0.43 L Nucleated RBC % 0 Sodium Potassium Chloride Carbon Dioxide Anion Gap BUN Creatinine Estim Creat Clear Calc Est GFR (MDRD) Af Amer Est GFR (MDRD) Non-Af BUN/Creatinine Ratio Glucose Lactic Acid 1.2 Calcium Total Bilirubin Direct Bilirubin AST ALT Alkaline Phosphatase Total Protein Albumin Globulin Lipase Urine Color Urine Clarity Urine pH Ur Specific [place] Urine Protein Urine Glucose (UA) Urine Ketones Urine Occult Blood Urine Nitrite Urine Bilirubin Urine Urobilinogen Ur Leukocyte Esterase Urine RBC Urine WBC Ur Squamous Epith Cells Urine Bacteria Urine Mucus Urine Test Acetone Level POC Glucose 290 H ABG Data ABG results: ABG 03/02/23 03:11 Specimen Type LUIS VBG pH 7.32 VBG pO2 49 H VBG HCO3 18 L VBG Total CO2 19 L VBG O2 Sat (Calc) 81 H VBG Base Excess -8 L POC Mix VBG pCO2 Pt Tmp 35.7 L Radiography Diagnostic Testing: Clinical Impression(s) from Imaging Studies Chest X-Ray 03/01/23 22:46 IMPRESSION: Chest with no acute disease. Electronically Signed: Davidson Griffith MD at 0:24 EDT , Abdomen/Pelvis CT 03/02/23 00:59 IMPRESSION: Circumferential distal esophageal wall thickening, suggesting esophagitis. No other definite acute abdominal abnormality is identified, to include normal appendix and no evidence of obstructing ureteral calculus. Electronically Signed: Davidson Griffith MD at 2:35 EDT , Chest x-ray as interpreted by the emergency medicine physician reveals no acute infiltrate pneumothorax or pleural effusion Discharge Plan Triage Chief Complaint: General Illness ED Provider: Sunil Mina Dx/Rx/DC Orders Clinical Impression: Type 1 diabetes mellitus with hyperglycemia, Esophagitis, Dehydration Instructions: Esophagitis, Dehydration Prescriptions: New sucralfate [Carafate] 1 gram tablet 1 g PO TID 30 Days Qty: 90 0RF famotidine [Pepcid] 20 mg tablet 20 mg PO BID 30 Days Qty: 60 0RF promethazine 25 mg tablet 25 mg PO TID PRN (Reason: nausea and vomiting) Qty: 21 0RF No Action hydroxyzine pamoate [Vistaril] 25 mg capsule 25 mg PO QHS Qty: 30 6RF albuterol sulfate [Ventolin HFA] 18 GM HFA aerosol inhaler 2 puff inhalation Q4H PRN (Reason: SHORTNES OF BREATH/WHEEZING) fluticasone propionate 50 mcg/actuation spray,suspension 2 spray INTRANASAL DAILY (DME) Dexcom G6 Sensor Device See Rx Instructions .Route Qty: 10 5RF Rx Instructions: As directed (DME) Dexcom G6 Transmitter Device See Rx Instructions .Route Qty: 1 3RF Rx Instructions: As directed (DME) pen needle, diabetic [BD Ultra-Fine Opal Pen Needle] 32 gauge x 5/32 needle See Rx Instructions .ROUTE .MEDSUPPLY Qty: 120 5RF Rx Instructions: 4 times daily (DME) Omnipod 5 G6 Pods (Gen 5) Cartridge See Rx Instructions .Route Qty: 45 1RF Rx Instructions: change every 48-72 hours (DME) Omnipod 5 G6 Intro Kit (Gen 5) Cartridge See Rx Instructions .Route Qty: 1 0RF Rx Instructions: As directed insulin aspart U-100 [Novolog FlexPen U-100 Insulin] 100 unit/mL (3 mL) insulin pen 15 unit subcut TID insulin glargine [Basaglar KwikPen U-100 Insulin] 100 unit/mL (3 mL) insulin pen 20 unit subcut QHS (DME) Ketone Urine Test Strip See Rx Instructions .ROUTE .MEDSUPPLY Qty: 50 1RF Rx Instructions: once/day Primary Care Provider: Erika Sen Referrals: Ganta,Erika, MD [Primary Care Provider] - Activity Restrictions/Additional Instructions: Please keep yourself well-hydrated as your exam today indicates you have dehydration. Your abdominal pain is related to your esophagitis as documented by your CT scan. Take the Carafate and Pepcid as directed to help control this. If you have worsening symptoms or any further concerns please return to the hospital for repeat evaluation Disposition Disposition: Home, Self Care Discharge Date/Time: 03/02/23 04:45
[2023-03-02 02:11] VITALS: PULSE 103; RESP 16; O2SAT 98
[2023-03-02 02:36] LABS: Lactic Acid 1.2 mmol/L (0.4-1.9)
[2023-03-02] MEDS: Famotidine 200 MG/20 ML MDV 20 MG in 0.9% Normal Saline (Pres. free 8 ML 300 MG IV (03:10)
[2023-03-02 03:17] LABS: Blood Gas Specimen Type VEN; VBG BASE EXCESS -8 mmol/L (-1.0-3.5); VBG Bicarbonate 18 mmol/L (22-26); VBG PO2 49 mmHg (25-40); VBG SO2 81 % (50-70); VBG TCO2 19 mmol/L (23-33); VBG pCO2 35.7 mmHg (41-51); VBG pH 7.32 (7.32-7.42)
[2023-03-02] MEDS: Insulin Lispro 100 UNIT/ML INSULN.PEN 6 UNIT SC (04:38)
[2023-03-02 04:42] VITALS: BP 110/84; PULSE 71; RESP 18; O2SAT 100
[2023-03-02 04:44] LABS: Bedside Glucose 290 mg/dL (74-106)
== END 2023-03-02 04:45 | disposition home or self-care (01) ==
LOC: ED 22:52
PROVIDERS: Emergency Provider Emergency Medicine; PCP Internal Medicine; Visit Provider Emergency Medicine
DX: E10.65 Type 1 diabetes mellitus with hyperglycemia (principal); Z79.4 Long term (current) use of insulin; K20.90 Esophagitis, unspecified without bleeding; E86.0 Dehydration; R11.2 Nausea with vomiting, unspecified; J45.909 Unspecified asthma, uncomplicated; F41.8 Other specified anxiety disorders; Z79.899 Other long term (current) drug therapy; Z96.41 Presence of insulin pump (external) (internal)
CPT/HCPCS: 71046; 74177; 80048; 80076; 81001; 81025; 82009; 82803; 82962; 83605; 83690; 85025; 96374; 96375; 99282; A4216; J2405 ×2; J3490 ×2; J7030; Q9967

== ENCOUNTER 2023-03-03 11:50 | Observation (INO) | payer MEDICAID, SELFPAY ==
[2023-03-03] VITALS (14 sets, daily range): BP systolic 135–154; BP diastolic 78–96; PULSE 82–116; RESP 15–22; TEMP 36.4–37.2; O2SAT 98–100; BMI 21.6
[2023-03-03 12:19] LABS: Bedside Glucose 327 mg/dL (74-106)
[2023-03-03] MEDS: 0.9% Normal Saline 1,000 ML 1000 ML IV (13:00)
[2023-03-03 13:09] LABS: Absolute Lymphocyte Count 0.58 X10^3/uL (0.83-4.51); Absolute Neutrophil Count 8.1 X10^3/uL (2.0-7.7); Basophil# 0.04 X10^3/uL; Basophil% 0.4 % (0-1); Eosinophil# 0.04 X10^3/uL; Eosinophils% 0.4 % (0-5); Hematocrit 39.4 % (37-47); Lymphocyte # 0.58 X10^3/ul (0.83-4.51); Lymphocyte % 6.3 % (19-41); Mean Corpuscular Hgb 27.7 pg (27.0-32.0); Mean Platelet Vol. 8.2 fl (6.2-12.0); Monocyte# 0.34 X10^3/uL; Monocyte% 3.7 % (0-10); NRBC Flagged by Analyzer 0 % (0-5); Neutrophil # 8.11 X10^3/uL (2.7-7.7); Neutrophil % 88.7 % (47-70); POSITIVE DIFFERENTIAL YES; Platelet Count 294 K/mm3 (150-450); RBC Distribution Width CV 12.6 % (11.6-14.6); RBC Distribution Width SD 37.7 fl (35.1-43.9); Red Blood Count 4.69 M/mm3 (4.2-5.4); White Blood Count 9.2 K/mm3 (4.4-11.0)
[2023-03-03 13:11] LABS: Differential Indicated SCAN CRITERIA MET
[2023-03-03 13:19] LABS: Internal QC Validated? YES +Cl - CLEAR BKGD; Pregnancy, Serum, hCG Quali. NEGATIVE Negative
[2023-03-03 13:24] LABS: AST(SGOT) 11 U/L (15-37); Alanine Aminotransfer ALT/SGPT 12 U/L (13-56); Albumin, Serum 3.1 g/dL (3.2-5.0); Alkaline Phosphatase 91 U/L (45-117); Anion Gap 18 (5-15); BUN 7 mg/dL (7-18); BUN/Creat Ratio 11.3 RATIO (10-20); Bilirubin, Direct 0.28 mg/dL (0.00-0.30); Calcium,Total 8.9 mg/dL (8.5-10.1); Chloride 96 mmol/L (98-107); Creatinine, Serum 0.62 mg/dL (0.55-1.02); EST Glomerular Filtration Rate 125 mL/min (>60); Est Glom Filt Rate - Afr Amer 151 mL/min (>60); Estimated Creatinine Clearance 107.35 ml/min; Globulin 3.9 g/dL (2.2-4.2); Glucose 294 mg/dL (74-106); Lipase 15 U/L (13-75); Potassium 3.2 mmol/L (3.5-5.1); Sodium Level 131 mmol/L (136-145)
--- NOTE | 2023-03-03 13:27 | ED.RN ---
Patient ambulatory to athroom, gait steady. Urine obtained and sent to lab
[2023-03-03] MEDS: Ondansetron 4 MG/2 ML Vial IV (13:35)
[2023-03-03 13:36] LABS: Bacteria 0 SEEN /hpf (None Seen); Mucous, Urine 0 SEEN /hpf (<or=2+); Red Blood Cells-Urine 0 SEEN /hpf (0-5); Squamous Epithelial Cells - UA 0 SEEN /hpf (5-10); White Blood Cells 0 SEEN /hpf (0-5)
[2023-03-03 13:37] LABS: Color, Urine Yellow (Yellow); Glucose, Dipstick 1000 mg/dl (Normal); Leukocyte Esterase-Dipstick Negative /ul (Negative); Nitrite-Dipstick Negative (Negative); Occult Blood-Urine Negative /ul (Negative); Protein-Dipstick 15 mg/dl (Negative); Urine Bilirubin Dipstick Negative (Negative); Urine Clarity Clear (Clear); Urine Urobilinogen Normal (Normal)
[2023-03-03 13:37] LABS: Bedside Glucose 279 mg/dL (74-106)
[2023-03-03 13:46] LABS: Ketone-Dipstick 150 mg/dl (Negative)
--- NOTE | 2023-03-03 14:34 | EDS_ITS ---
HPI History of Present Illness Chief Complaint: Hyperglycemia Informant: patient Narrative Narrative: Patient returns to the ER due to concern for possible DKA. Patient was seen in the ER couple days ago with upper abdominal pain, nausea, and vomiting. She was diagnosed with esophagitis. She states medications were sent to the pharmacy for her, but the pharmacy was closed yesterday and she was not able to pick them up today. She saw her PCP this morning who was concerned that she is still not tolerating p.o. and sent her back to the emergency room. [facility] Medical History (Updated 03/03/23 @ 14:[address] Kaylen Morin MD) Anxiety and depression Asthma Cannabis hyperemesis syndrome concurrent with and due to cannabis abuse Diabetes type 1, controlled DKA, type 1 History of marijuana use Hypokalemia Hypophosphatemia Implanon in place Insulin pump titration Presence of insulin pump Home Medications albuterol sulfate 90 mcg/actuation aerosol inhaler (Ventolin HFA) 2 puff inhalation Q4H PRN SHORTNES OF BREATH/WHEEZING 08/25/18 [History Last Taken 03/02/23] Ketone Urine Test (acetone (urine) test) #50 ea 11/05/21 [Rx Last Taken Unknown] fluticasone propionate 50 mcg/actuation nasal spray,suspension 2 spray intranasal DAILY NASAL CONGESTION 11/21/22 [History Last Taken 02/12/23] blood-glucose sensor (Dexcom G6 Sensor device) #10 ea 11/23/22 [Rx Last Taken Unknown] blood-glucose transmitter (Dexcom G6 Transmitter device) #1 ea 11/23/22 [Rx Last Taken Unknown] insulin pump cart,automated,BT (Omnipod 5 G6 Pods (Gen 5) subcutaneous cartridge) #45 ea 11/23/22 [Rx Last Taken Unknown] insulin pump cartridge,automated dose,BT with controller subcutaneous (Omnipod 5 G6 Intro Kit (Gen 5) subcutaneous cartridge with controller) #1 ea 11/23/22 [Rx Last Taken Unknown] pen needle, diabetic 32 gauge x 5/32 (BD Ultra-Fine Opal Pen Needle) #120 ea 11/23/22 [Rx Last Taken Unknown] hydroxyzine pamoate 25 mg capsule (Vistaril) 25 mg PO QHS ITCHING #30 caps 01/13/23 [Rx Last Taken 02/12/23] insulin aspart U-100 100 unit/mL (3 mL) subcutaneous pen (Novolog FlexPen U-100 Insulin aspart) 15 unit subcut TID 03/01/23 [History Last Taken 03/03/23] insulin glargine 100 unit/mL (3 mL) subcutaneous pen (Basaglar KwikPen U-100 Insulin) 20 unit subcut QHS 03/01/23 [History Last Taken 03/02/23] Allergy/AdvReac Type Severity Reaction Status Date / Time bee venom protein (honey bee) Allergy Severe Anaphylaxis Verified 03/03/23 11:56 [bee stings] Penicillins Allergy Unknown Verified 03/03/23 11:56 Sulfa (Sulfonamide Allergy Unknown Verified 03/03/23 11:56 Antibiotics) prednisone AdvReac Vomiting Verified 03/03/23 11:56 Family History Grandmother Diabetes Sister Asthma Brother Asthma Mother Heart disease Surgical History History of placement of ear tubes Social History household members: family Smoking Status: Never smoker second hand exposure: No alcohol intake: never substance use type: other details: Cannabis, last use ~ 1 month prior, ingested. ROS ROS ED Constitutional Constitutional ED: Denies chills or fever(s) Eyes Eyes: Denies change in vision or discharge from eye(s) ENT ENT ED: Denies discharge from eye(s), rhinorrhea or sore throat Cardiovascular Cardiovascular: Denies chest pain or palpitations Respiratory/Chest Respiratory/Chest: Denies cough or dyspnea Gastrointestinal Gastrointestinal: Reports abdominal pain, diarrhea, nausea and vomiting Genitourinary Genitourinary ED: Denies dysuria Musculoskeletal Musculoskeletal: Reports myalgias; Denies back pain or extremity pain Integumentary Denies Abrasions or rash Neurologic Neurologic: Denies headache(s) or weakness Psychiatric Psychiatric: Denies anxiety or depression Allergic/Immunologic Allergic/Immunologic ED: Denies lip swelling or urticaria EXAM Physical Exam Const Vital Signs: 03/03/23 11:50 03/03/23 11:56 03/03/23 13:22 Temperature 98.6 F 97.6 F L Temperature Source Oral Oral Pulse Rate 116 H 111 H 90 Respiratory Rate 18 18 22 H Respiratory Effort Respiratory Pattern Blood Pressure 144/94 H 147/86 H 147/86 H Blood Pressure Mean 110 106 106 Pulse Ox 100 100 98 Oxygen Delivery Method Room Air Room Air Room Air 03/03/23 13:22 Temperature Temperature Source Pulse Rate Respiratory Rate Respiratory Effort Normal Respiratory Pattern Normal Blood Pressure Blood Pressure Mean Pulse Ox Oxygen Delivery Method Positive well nourished and well developed General Appearance ED: well developed HEENT Reports normocephalic and head/scalp atraumatic Eyes PERRL and EOMs intact bilaterally Neck supple Chest Wall inspection of chest normal and palpation of chest normal Resp normal respiratory effort and clear to auscultation bilaterally Cardio regular rhythm Rate: tachycardic GI GI Narrative: Abdomen soft with mild epigastric tenderness. No guarding or rebound. Palpation: soft Extremity normal to inspection Neuro oriented x3 and no sensory deficits noted Sensorium / Orientation: alert Motor Exam: strength 5/5 throughout Psych mental status grossly normal Skin no rashes or lesions noted MDM MDM MDM Narrative Medical decision making narrative: Patient given IV fluids, Protonix, Zofran. Labwork obtained to evaluate for breana kocytosis, anemia, and electrolyte derangement. Urinalysis obtained to evaluate for infection/hematuria. History & Record Review Discussion w/independent historian: Patient Additional record(s) reviewed:: Prior inpatient record, Prior ED visit and Prior labs Lab Data Attestation: I reviewed the patient's lab results. Labs: Laboratory Results - last 24 hr 03/03/23 03/03/23 03/03/23 12:00 13:00 13:18 WBC 9.2 RBC 4.69 Hgb 13.0 Hct 39.4 MCV 84.0 MCH 27.7 MCHC 33.0 RDW Std Deviation 37.7 RDW Coeff of Marilynn 12.6 Plt Count 294 MPV 8.2 Immature Gran % (Auto) 0.500 Neut % (Auto) 88.7 H Lymph % (Auto) 6.3 L [place] % (Auto) 3.7 Eos % (Auto) 0.4 Baso % (Auto) 0.4 Absolute Neuts (auto) 8.1 H Absolute Lymphs (auto) 0.58 L Nucleated RBC % 0 Sodium 131 L Potassium 3.2 L Chloride 96 L Carbon Dioxide 17.0 L Anion Gap 18 H BUN 7 Creatinine 0.62 Estim Creat Clear Calc 107.35 Est GFR (MDRD) Af Amer 151 Est GFR (MDRD) Non-Af 125 BUN/Creatinine Ratio 11.3 Glucose 294 H Calcium 8.9 Total Bilirubin 0.90 Direct Bilirubin 0.28 AST 11 L ALT 12 L Alkaline Phosphatase 91 Total Protein 7.0 Albumin 3.1 L Globulin 3.9 Lipase 15 Serum , Qual NEGATIVE Urine Color Urine Clarity Urine pH Ur Specific [place] Urine Protein Urine Glucose (UA) Urine Ketones Urine Occult Blood Urine Nitrite Urine Bilirubin Urine Urobilinogen Ur Leukocyte Esterase Urine RBC Urine WBC Ur Squamous Epith Cells Urine Bacteria Urine Mucus Acetone Level MODERATE H POC Glucose 327 H 279 H 03/03/23 03/03/23 13:29 14:47 WBC RBC Hgb Hct MCV MCH MCHC RDW Std Deviation RDW Coeff of Marilynn Plt Count MPV Immature Gran % (Auto) Neut % (Auto) Lymph % (Auto) [place] % (Auto) Eos % (Auto) Baso % (Auto) Absolute Neuts (auto) Absolute Lymphs (auto) Nucleated RBC % Sodium Potassium Chloride Carbon Dioxide Anion Gap BUN Creatinine Estim Creat Clear Calc Est GFR (MDRD) Af Amer Est GFR (MDRD) Non-Af BUN/Creatinine Ratio Glucose Calcium Total Bilirubin Direct Bilirubin AST ALT Alkaline Phosphatase Total Protein Albumin Globulin Lipase Serum , Qual Urine Color Yellow Urine Clarity Clear Urine pH 5.0 Ur Specific [place] 1.020 Urine Protein 15 H Urine Glucose (UA) 1000 H Urine Ketones 150 A* Urine Occult Blood Negative Urine Nitrite Negative Urine Bilirubin Negative Urine Urobilinogen Normal Ur Leukocyte Esterase Negative Urine RBC 0 SEEN Urine WBC 0 SEEN Ur Squamous Epith Cells 0 SEEN Urine Bacteria 0 SEEN Urine Mucus 0 SEEN Acetone Level POC Glucose 246 H Treatment and Re-Evaluation :: CBC reveals normal white count 9.2 with hemoglobin of 13. Differential does reveal 88% neutrophils. Chemistry studies reveal a glucose of 294 with a sodium of 131 and a potassium of 3.2. Bicarb is low at 17. Anion gap is increased at 18. LFTs are unremarkable. test is negative. Serum acetone level is moderate. Urinalysis reveals 150 ketones and 1000 glucose. No sign of acute infection. Repeat blood sugar will be obtained. She will require insulin drip given her serum acetone level and elevated anion gap. She may require D5 as her glucose is not horribly elevated at this time. Discussion with the hospitalist, he would like additional IV fluids. He will give her long-acting insulin upstairs. Discharge Plan Dx/Rx/DC Orders Clinical Impression: DKA (diabetic ketoacidosis), Esophagitis Disposition Disposition: Acute Care Hospital [facility]
[2023-03-03 15:04] LABS: Bedside Glucose 246 mg/dL (74-106)
--- NOTE | 2023-03-03 15:23 | PCM.HP.STD ---
HPI - General General Date of Admission: 03/03/23 HPI Narrative KALIE DESIR, is a 22 F who presents to the hospital with DKA. She was recently seen in the ER a few days ago with dehydration and elevated blood sugars but at that time she was not DKA. She was discharged home unfortunate she could not fill her antinausea prescriptions and she is continued to vomit over the weekend and become more dehydrated and is now in the ER with deep eye based on ketone and acetone level. Bicarb is at 17 with an anion gap of 18 and a normal renal function. Blood sugars are at 246. [facility] Medical History Anxiety and depression Asthma Cannabis hyperemesis syndrome concurrent with and due to cannabis abuse Diabetes type 1, controlled DKA, type 1 History of marijuana use Hypokalemia Hypophosphatemia Implanon in place Insulin pump titration Presence of insulin pump Home Medications albuterol sulfate 90 mcg/actuation aerosol inhaler (Ventolin HFA) 2 puff inhalation Q4H PRN SHORTNES OF BREATH/WHEEZING 08/25/18 [History Last Taken 03/02/23] Ketone Urine Test (acetone (urine) test) #50 ea 11/05/21 [Rx Last Taken Unknown] fluticasone propionate 50 mcg/actuation nasal spray,suspension 2 spray intranasal DAILY NASAL CONGESTION 11/21/22 [History Last Taken 02/12/23] blood-glucose sensor (Dexcom G6 Sensor device) #10 ea 11/23/22 [Rx Last Taken Unknown] blood-glucose transmitter (Dexcom G6 Transmitter device) #1 ea 11/23/22 [Rx Last Taken Unknown] insulin pump cart,automated,BT (Omnipod 5 G6 Pods (Gen 5) subcutaneous cartridge) #45 ea 11/23/22 [Rx Last Taken Unknown] insulin pump cartridge,automated dose,BT with controller subcutaneous (Omnipod 5 G6 Intro Kit (Gen 5) subcutaneous cartridge with controller) #1 ea 11/23/22 [Rx Last Taken Unknown] pen needle, diabetic 32 gauge x 5/32 (BD Ultra-Fine Opal Pen Needle) #120 ea 11/23/22 [Rx Last Taken Unknown] hydroxyzine pamoate 25 mg capsule (Vistaril) 25 mg PO QHS ITCHING #30 caps 01/13/23 [Rx Last Taken 02/12/23] insulin aspart U-100 100 unit/mL (3 mL) subcutaneous pen (Novolog FlexPen U-100 Insulin aspart) 15 unit subcut TID 03/01/23 [History Last Taken 03/03/23] insulin glargine 100 unit/mL (3 mL) subcutaneous pen (Basaglar KwikPen U-100 Insulin) 20 unit subcut QHS 03/01/23 [History Last Taken 03/02/23] Allergy/AdvReac Type Severity Reaction Status Date / Time bee venom protein (honey bee) Allergy Severe Anaphylaxis Verified 03/03/23 11:56 [bee stings] Penicillins Allergy Unknown Verified 03/03/23 11:56 Sulfa (Sulfonamide Allergy Unknown Verified 03/03/23 11:56 Antibiotics) prednisone AdvReac Vomiting Verified 03/03/23 11:56 Family History Grandmother Diabetes Sister Asthma Brother Asthma Mother Heart disease Surgical History History of placement of ear tubes Social History household members: family Smoking Status: Never smoker second hand exposure: No alcohol intake: never substance use type: other details: Cannabis, last use ~ 1 month prior, ingested. ROS Constitutional Constitutional: Denies chills, fatigue, fever(s) or malaise Eyes Eyes: Denies blurry vision ENT HEENT: Denies headache(s) or nasal discharge Cardiovascular Cardiovascular: Denies chest pain, dyspnea on exertion or syncope Respiratory/Chest Respiratory/Chest: Denies cough, shortness of breath at rest or shortness of breath with exertion Gastrointestinal Gastrointestinal: Reports abdominal pain, nausea and vomiting; Denies constipation or diarrhea Genitourinary Genitourinary: Denies dysuria Neurologic Neurologic: Denies focal weakness, numbness or tremor(s) Psychiatric Psychiatric: Denies anxiety or depression Vital Signs Vital Signs Vital Signs: 03/03/23 11:50 03/03/23 11:56 03/03/23 13:22 Temperature 98.6 F 97.6 F L Temperature Source Oral Oral Pulse Rate 116 H 111 H 90 Respiratory Rate 18 18 22 H Respiratory Effort Respiratory Pattern Blood Pressure 144/94 H 147/86 H 147/86 H Blood Pressure Mean 110 106 106 Pulse Ox 100 100 98 Oxygen Delivery Method Room Air Room Air Room Air 03/03/23 13:22 Temperature Temperature Source Pulse Rate Respiratory Rate Respiratory Effort Normal Respiratory Pattern Normal Blood Pressure Blood Pressure Mean Pulse Ox Oxygen Delivery Method Weight Weight: 107 lb 2.314 oz Body Mass Index (BMI) 21.6 Physical Exam Narrative General: Alert, Oriented x3, Cooperative, No apparent distress HEENT: Atraumatic, PERRLA, EOMI, Normocephalic Oral: Dry mucosa Neck: Supple, No JVD Lungs: Clear to auscultation, Normal air movement, No rhonchi, No wheeze, No rales Cardiovascular: Tachycardic, Regular Rhythm, Normal S1, Normal S2, No murmurs Abdomen: Soft, mild tender, Non-Distended, No Hepato-splenomegaly Extremities: No edema, Capillary Refill Less than 3 Seconds Skin: No rashes, No breakdown Musculoskeletal: No Tenderness to Palpation of Joints or Extremities Neurological: Cranial nerves II-XII grossly intact, Motor Exam 5/5 strength throughout, Sensory exam intact to light touch and pain Psych/Mental Status: Normal Affect, Appropriate Results Lab / Micro Data 03/03/23 13:00 03/03/23 13:00 Labs: Laboratory Results - last 24 hr 03/03/23 12:00: POC Glucose 327 H 03/03/23 13:00: WBC 9.2, RBC 4.69, Hgb 13.0, Hct 39.4, MCV 84.0, MCH 27.7, MCHC 33.0, RDW Std Deviation 37.7, RDW Coeff of Marilynn 12.6, Plt Count 294, MPV 8.2, Immature Gran % (Auto) 0.500, Neut % (Auto) 88.7 H, Lymph % (Auto) 6.3 L, [place] % (Auto) 3.7, Eos % (Auto) 0.4, Baso % (Auto) 0.4, Absolute Neuts (auto) 8.1 H, Absolute Lymphs (auto) 0.58 L, Nucleated RBC % 0, Sodium 131 L, Potassium 3.2 L, Chloride 96 L, Carbon Dioxide 17.0 L, Anion Gap 18 H, BUN 7, Creatinine 0.62, Estim Creat Clear Calc 107.35, Est GFR (MDRD) Af Amer 151, Est GFR (MDRD) Non-Af 125, BUN/Creatinine Ratio 11.3, Glucose 294 H, Calcium 8.9, Total Bilirubin 0.90, Direct Bilirubin 0.28, AST 11 L, ALT 12 L, Alkaline Phosphatase 91, Total Protein 7.0, Albumin 3.1 L, Globulin 3.9, Lipase 15, Serum , Qual NEGATIVE, Acetone Level MODERATE H 03/03/23 13:18: POC Glucose 279 H 03/03/23 13:29: Urine Color Yellow, Urine Clarity Clear, Urine pH 5.0, Ur Specific [place] 1.020, Urine Protein 15 H, Urine Glucose (UA) 1000 H, Urine Ketones 150 A*, Urine Occult Blood Negative, Urine Nitrite Negative, Urine Bilirubin Negative, Urine Urobilinogen Normal, Ur Leukocyte Esterase Negative, Urine RBC 0 SEEN, Urine WBC 0 SEEN, Ur Squamous Epith Cells 0 SEEN, Urine Bacteria 0 SEEN, Urine Mucus 0 SEEN 03/03/23 14:47: POC Glucose 246 H Assessment & Plan Assessment/Plan (1) DKA, type 1: QUALIFIERS: Diabetes mellitus complication detail: without coma Qualified Code(s): E10.10 - Type 1 diabetes mellitus with ketoacidosis without coma PLAN: Plan 1. DKA/DM1 ? Blood sugars are at 246 so we will hold off on doing an insulin drip and we will manage her with IV fluids and her home insulin ? We will obtain every 4 BMPs to closely monitor electrolytes and her anion gap ? We will make adjustments to her insulin and her fluids as necessary ? We will allow for transitional diet ? We will provide antinausea medications as well as Pepcid as she feels like she has burning in her abdomen ? She does state that she has abdominal pain though upon entering her room she was sleeping so we will monitor ? CT scan from 03/02/2023 showed distal esophageal thickening consistent with esophagitis but no other abdominal abnormality will not repeat films DVT: Ambulation neck 76 minutes was spent on direct patient care, including documentation as well as chart review and collaboration with colleagues Charges/Coding Visit Charges Inpatient E&M: 02272 Init Hosp L3
--- NOTE | 2023-03-03 15:54 | ED.RN ---
Called ICU to give report. No answer.
[2023-03-03] MEDS: 0.9% Normal Saline 1,000 ML 999 ML IV (16:15)
[2023-03-03 16:33] LABS: Bedside Glucose 216 mg/dL (74-106)
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
[2023-03-03] MEDS: 0.9% Normal Saline 1,000 ML 250 ML IV ×2 (17:41→21:55)
[2023-03-03] MEDS: Insulin Lispro 100 UNIT/ML INSULN.PEN SC (18:16)
[2023-03-03] MEDS: proCHLORPERazine 10 MG/2 ML Vial 5 MG IV (18:17)
[2023-03-03 18:19] LABS: Bedside Glucose 197 mg/dL (74-106)
[2023-03-03 19:47] LABS: Anion Gap 15 (5-15); BUN 6 mg/dL (7-18); BUN/Creat Ratio 13.6 RATIO (10-20); Calcium,Total 7.7 mg/dL (8.5-10.1); Chloride 106 mmol/L (98-107); Creatinine, Serum 0.44 mg/dL (0.55-1.02); EST Glomerular Filtration Rate 185 mL/min (>60); Est Glom Filt Rate - Afr Amer 224 mL/min (>60); Estimated Creatinine Clearance 151.26 ml/min; Glucose 195 mg/dL (74-106); Potassium 3.4 mmol/L (3.5-5.1); Sodium Level 135 mmol/L (136-145)
[2023-03-03] MEDS: Insulin Glargine-YFGN 100 UNIT/ML Pen 20 UNIT SC (21:24)
[2023-03-03] MEDS: Famotidine 20 MG Tablet PO (21:24)
[2023-03-03] MEDS: Insulin Lispro 100 UNIT/ML INSULN.PEN 15 UNIT SC (21:24)
[2023-03-03] MEDS: hydrOXYzine PAM 25 MG Capsule PO (21:24)
[2023-03-03] MEDS: 0.9% Saline Lock 10 ML Syringe IV (21:24)
[2023-03-03 21:49] LABS: Bedside Glucose 143 mg/dL (74-106)
[2023-03-03 23:27] LABS: Anion Gap 11 (5-15); BUN 5 mg/dL (7-18); Calcium,Total 7.6 mg/dL (8.5-10.1); Chloride 108 mmol/L (98-107); Creatinine, Serum 0.45 mg/dL (0.55-1.02); EST Glomerular Filtration Rate 179 mL/min (>60); Est Glom Filt Rate - Afr Amer 216 mL/min (>60); Glucose 115 mg/dL (74-106); Potassium 2.6 mmol/L (3.5-5.1); Sodium Level 136 mmol/L (136-145)
[2023-03-04] VITALS (14 sets, daily range): BP systolic 126–148; BP diastolic 75–93; PULSE 82–109; RESP 15–23; TEMP 36.6–36.8; O2SAT 97–100; BMI 26.4
[2023-03-04] MEDS: Potassium Chloride Oral Tablet 20 MEQ 40 MEQ PO (00:54)
[2023-03-04] MEDS: 0.9% Normal Saline 1,000 ML 250 ML IV ×3 (02:14→10:23)
[2023-03-04 02:28] LABS: Bedside Glucose 47 mg/dL (74-106)
[2023-03-04 03:21] LABS: Absolute Lymphocyte Count 1.17 X10^3/uL (0.83-4.51); Basophil# 0.02 X10^3/uL; Basophil% 0.4 % (0-1); Eosinophil# 0.03 X10^3/uL; Eosinophils% 0.5 % (0-5); Hematocrit 32.7 % (37-47); Hemoglobin 10.9 g/dL (12.0-15.0); Lymphocyte # 1.17 X10^3/ul (0.83-4.51); Lymphocyte % 20.6 % (19-41); Mean Corp Hgb Conc 33.3 g/dL (32-36); Mean Corpuscular Hgb 27.8 pg (27.0-32.0); Mean Corpuscular Volume 83.4 fL (81-99); Mean Platelet Vol. 7.9 fl (6.2-12.0); Monocyte# 0.47 X10^3/uL; Monocyte% 8.3 % (0-10); NRBC Flagged by Analyzer 0 % (0-5); Neutrophil # 3.96 X10^3/uL (2.7-7.7); Neutrophil % 69.8 % (47-70); Platelet Count 256 K/mm3 (150-450); RBC Distribution Width CV 12.5 % (11.6-14.6); RBC Distribution Width SD 37.9 fl (35.1-43.9); Red Blood Count 3.92 M/mm3 (4.2-5.4); White Blood Count 5.7 K/mm3 (4.4-11.0)
[2023-03-04 03:34] LABS: Anion Gap 9 (5-15); BUN 3 mg/dL (7-18); BUN/Creat Ratio 7.8 RATIO (10-20); Calcium,Total 7.7 mg/dL (8.5-10.1); Chloride 109 mmol/L (98-107); Creatinine, Serum 0.38 mg/dL (0.55-1.02); EST Glomerular Filtration Rate 217 mL/min (>60); Est Glom Filt Rate - Afr Amer 262 mL/min (>60); Estimated Creatinine Clearance 175.14 ml/min; Glucose 99 mg/dL (74-106); Sodium Level 139 mmol/L (136-145)
[2023-03-04 03:49] LABS: Bedside Glucose 96 mg/dL (74-106)
--- NOTE | 2023-03-04 03:49 | NURSING ---
Patient's blood sugar was 47. Treated with aguayo frozen ice and ki crackers. Checked blood sugar again, 96.
[2023-03-04 06:36] LABS: Bedside Glucose 92 mg/dL (74-106)
[2023-03-04] MEDS: Potassium Chloride 10mEq/100mL 10 MEQ/100 ML IV.SOLN. 100 MEQ IV BOLUS ×4 (07:02→10:23)
[2023-03-04 07:22] LABS: Anion Gap 8 (5-15); BUN 2 mg/dL (7-18); BUN/Creat Ratio 5.3 RATIO (10-20); Calcium,Total 7.9 mg/dL (8.5-10.1); Chloride 107 mmol/L (98-107); Creatinine, Serum 0.38 mg/dL (0.55-1.02); EST Glomerular Filtration Rate 220 mL/min (>60); Est Glom Filt Rate - Afr Amer 266 mL/min (>60); Estimated Creatinine Clearance 214.07 ml/min; Glucose 99 mg/dL (74-106); Potassium 3.1 mmol/L (3.5-5.1); Sodium Level 136 mmol/L (136-145)
[2023-03-04 08:45] LABS: Magnesium 1.7 mg/dL (1.6-2.6)
[2023-03-04 08:58] LABS: Phosphorus 1.7 mg/dL (2.5-4.9)
[2023-03-04] MEDS: Famotidine 20 MG Tablet PO ×2 (09:19→21:14)
[2023-03-04] MEDS: Sucralfate 1 GM Tablet PO (09:51)
[2023-03-04 10:13] LABS: Bedside Glucose 97 mg/dL (74-106)
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
[2023-03-04 12:38] LABS: Anion Gap 11 (5-15); BUN 2 mg/dL (7-18); BUN/Creat Ratio 5.3 RATIO (10-20); Calcium,Total 7.9 mg/dL (8.5-10.1); Chloride 104 mmol/L (98-107); Creatinine, Serum 0.38 mg/dL (0.55-1.02); EST Glomerular Filtration Rate 222 mL/min (>60); Est Glom Filt Rate - Afr Amer 269 mL/min (>60); Estimated Creatinine Clearance 214.07 ml/min; Glucose 176 mg/dL (74-106); Potassium 3.7 mmol/L (3.5-5.1); Sodium Level 134 mmol/L (136-145)
[2023-03-04] MEDS: Insulin Lispro 100 UNIT/ML INSULN.PEN SC ×2 (14:19→21:17)
[2023-03-04] MEDS: Ondansetron 4 MG/2 ML Vial IV (14:24)
[2023-03-04 14:30] LABS: Bedside Glucose 180 mg/dL (74-106)
--- NOTE | 2023-03-04 15:01 | PN.HOSP_ITS ---
Reason for Visit Reason for Visit: Diagnoses Type 1 diabetes mellitus with ketoacidosis without coma (03/03/23) Subjective Subjective Patient seen at bedside. Plan comfortably in bed, conversing normally, no acute distress. She feels fatigued and has moderate pain with swallowing, but does feel improved since admission. She has only been able to get down some liquids since admission. However, she does feel hungry and wants to eat. She is asking for a medication to help coat her esophagus and stomach so that eating is not as painful. She denies any fevers or chills. No other acute concerns. Objective Data Objective Data Vital Signs: Vital Signs Temp Pulse Resp BP Pulse Ox O2 Del Method 98.3 F 82 16 146/92 H 98 Room Air 03/04/23 14:30 03/04/23 14:30 03/04/23 14:30 03/04/23 14:30 03/04/23 14:30 03/04/23 14:30 Oxygen Delivery Method Room Air Weight: 59.4 kg Body Mass Index (BMI) 26.4 Intake & Output: Intake and Output for Last 24 Hours 03/02/23 03/03/23 03/04/23 23:59 23:59 23:59 Intake Total 3310 / 3410 4287.75 / 4287.75 Output Total 400 / 400 2200 / 2200 Balance 2910 / 3010 2087.75 / 2087.75 Lab / Micro Data Attestation: I reviewed the patient's lab results. 03/04/23 03:15 03/04/23 12:00 Labs: Laboratory Results - last 24 hr 03/03/23 14:47: POC Glucose 246 H 03/03/23 16:16: POC Glucose 216 H 03/03/23 17:40: Sodium Cancelled, Potassium Cancelled, Chloride Cancelled, Carbon Dioxide Cancelled, Anion Gap Cancelled, BUN Cancelled, Creatinine Cancelled, Estim Creat Clear Calc Cancelled, Est GFR (MDRD) Af Amer Cancelled, Est GFR (MDRD) Non-Af Cancelled, BUN/Creatinine Ratio Cancelled, Glucose Cancelled, Calcium Cancelled 03/03/23 18:01: POC Glucose 197 H 03/03/23 19:25: Sodium 135 L, Potassium 3.4 L, Chloride 106, Carbon Dioxide 14.0 L, Anion Gap 15, BUN 6 L, Creatinine 0.44 L, Estim Creat Clear Calc 151.26, Est GFR (MDRD) Af Amer 224, Est GFR (MDRD) Non-Af 185, BUN/Creatinine Ratio 13.6, Glucose 195 H, Calcium 7.7 L 03/03/23 21:18: POC Glucose 143 H 03/03/23 22:50: Sodium 136, Potassium 2.6 L*, Chloride 108 H, Carbon Dioxide 17.0 L, Anion Gap 11, BUN 5 L, Creatinine 0.45 L, Estim Creat Clear Calc 147.90, Est GFR (MDRD) Af Amer 216, Est GFR (MDRD) Non-Af 179, BUN/Creatinine Ratio 11.0, Glucose 115 H, Calcium 7.6 L 03/04/23 02:09: POC Glucose 47 L 03/04/23 03:15: WBC 5.7, RBC 3.92 L, Hgb 10.9 L, Hct 32.7 L, MCV 83.4, MCH 27.8, MCHC 33.3, RDW Std Deviation 37.9, RDW Coeff of Marilynn 12.5, Plt Count 256, MPV 7.9, Immature Gran % (Auto) 0.400, Neut % (Auto) 69.8, Lymph % (Auto) 20.6, [place] % (Auto) 8.3, Eos % (Auto) 0.5, Baso % (Auto) 0.4, Absolute Neuts (auto) 4.0, Absolute Lymphs (auto) 1.17, Nucleated RBC % 0, Sodium 139, Potassium 3.0 L, Chloride 109 H, Carbon Dioxide 21.0, Anion Gap 9, BUN 3 L, Creatinine 0.38 L, E stim Creat Clear Calc 175.14, Est GFR (MDRD) Af Amer 262, Est GFR (MDRD) Non-Af 217, BUN/Creatinine Ratio 7.8 L, Glucose 99, Calcium 7.7 L 03/04/23 03:31: POC Glucose 96 03/04/23 06:15: POC Glucose 92 03/04/23 07:00: Sodium 136, Potassium 3.1 L, Chloride 107, Carbon Dioxide 21.0, Anion Gap 8, BUN 2 L, Creatinine 0.38 L, Estim Creat Clear Calc 214.07, Est GFR (MDRD) Af Amer 266, Est GFR (MDRD) Non-Af 220, BUN/Creatinine Ratio 5.3 L, Glucose 99, Calcium 7.9 L, Phosphorus 1.7 L, Magnesium 1.7 03/04/23 09:55: POC Glucose 97 03/04/23 12:00: Sodium 134 L, Potassium 3.7, Chloride 104, Carbon Dioxide 19.0 L , Anion Gap 11, BUN 2 L, Creatinine 0.38 L, Estim Creat Clear Calc 214.07, Est GFR (MDRD) Af Amer 269, Est GFR (MDRD) Non-Af 222, BUN/Creatinine Ratio 5.3 L, Glucose 176 H, Calcium 7.9 L 03/04/23 14:12: POC Glucose 180 H Physical Exam Const alert, oriented x3, no apparent distress, average body habitus, healthy appearing and well nourished Constitutional Narrative: Pleasant female, conversing normally, no acute distress. Does appear mildly fatigued. General Appearance: cooperative, comfortable, well kempt and well developed HEENT normocephalic, head/scalp atraumatic, hearing grossly normal bilaterally, nasal mucous membranes and turbinates normal and moist oral mucous membranes Eyes PERRL, EOMs intact bilaterally and conjunctivae normal Neck full ROM, no lymphadenopathy and supple Lymph Lymphatic: no lymphadenopathy noted Chest inspection of chest normal Resp normal respiratory effort, normal air movement, no use of accessory muscles and clear to auscultation bilaterally Cardio regular rate, regular rhythm, no murmurs and peripheral pulses 2+ throughout GI normal to inspection, nondistended, normoactive bowel sounds, soft to palpation and non-distended GI Narrative: Mild tenderness to palpation in epigastric region. Back/Spine normal ROM Extremity normal to inspection, full ROM and no pedal edema Skin no rashes or lesions noted Psych mental status grossly normal Assessment & Plan Assessment/Plan (1) DKA (diabetic ketoacidosis): PLAN: Plan Patient is a 22 female with history significant for insulin-dependent type 1 diabetes mellitus, asthma and anxiety/depression who presented to the [facility] ED on 03/03 with concern for being in DKA. 1. DKA, resolved; insulin-dependent type 1 diabetes Patient has had several episodes of DKA in the past, with the most recent episode being about 3 to 4 weeks ago. States she has been taking her insulin at home as prescribed. She reports having a GI type illness with some diarrhea and vomiting shortly before coming into the hospital this time, so this may have precipitated DKA. Patient had very mild DKA on admission. Bicarb was 17 and blood glucose was 246. Was not put on an insulin drip, rather was treated with her home medications. ?DKA has now resolved. Bicarb greater than 20 and patient is tolerating some p.o. intake. Primary barrier to improved p.o. intake is her esophagitis, treating as below. Okay for transfer to [facility] floor. We will continue maintenance IV fluids through tomorrow morning and reassess labs then. If p.o. intake improves, patient will be okay for discharge. Continue home regimen of glargine 20 units at night, Humalog 15 units 3 times daily AC (if patient is eating) with sliding scale. Encouraged outpatient follow-up with endocrinology as needed. 2. Esophagitis ?Likely secondary to recent episodes of vomiting. Will treat with Pepcid twice daily and Carafate as needed. 3. Hypokalemia, improved Likely secondary to GI losses via diarrhea and vomiting. Has had hypokalemia similar to this on previous admissions. K3.4 on admit, dropped to 2.6 with administration of insulin. Now improved to 3.7 after aggressive resuscitation. ?Recheck BMP tomorrow morning, replete as needed prior to discharge. 4. Hypophosphatemia ?Likely secondary to administration of insulin for DKA. Phosphorus 1.7 on admission. Will replete as needed. 5. Asthma ? Continue home inhalers. DVT prophylaxis: Ambulation CODE STATUS: Full code, verified Expected disposition: Home, tomorrow Total clinical time spent by myself addressing the patient's medical issues, r eviewing all of the data, and collaborating with patient's care team: 35 minutes. Charges/Coding Visit Charges Inpatient E&M: 36753 Subs Hosp L2
[2023-03-04] MEDS: 0.9% Normal Saline 1,000 ML 125 ML IV (16:54)
[2023-03-04 18:23] LABS: Bedside Glucose 130 mg/dL (74-106)
[2023-03-04] MEDS: Na Biphos/Potassium Phosphate PACKET 1 PACKET PO (21:13)
[2023-03-04] MEDS: hydrOXYzine PAM 25 MG Capsule PO (21:13)
[2023-03-04] MEDS: Insulin Glargine-YFGN 100 UNIT/ML Pen 20 UNIT SC (21:16)
[2023-03-04 21:37] LABS: Bedside Glucose 173 mg/dL (74-106)
[2023-03-05] MEDS: 0.9% Normal Saline 1,000 ML 125 ML IV (00:48)
[2023-03-05 01:30] VITALS: BP 135/82; PULSE 87; RESP 16; TEMP 36.6; O2SAT 98
[2023-03-05 01:35] LABS: Bedside Glucose 127 mg/dL (74-106)
[2023-03-05 05:16] VITALS: BMI 25.4
[2023-03-05 05:30] LABS: Bedside Glucose 90 mg/dL (74-106)
[2023-03-05 06:15] LABS: Bedside Glucose 87 mg/dL (74-106)
[2023-03-05 07:55] LABS: Anion Gap 6 (5-15); BUN 1 mg/dL (7-18); BUN/Creat Ratio 3.1 RATIO (10-20); Calcium,Total 8.2 mg/dL (8.5-10.1); Chloride 103 mmol/L (98-107); Creatinine, Serum 0.32 mg/dL (0.55-1.02); EST Glomerular Filtration Rate 265 mL/min (>60); Est Glom Filt Rate - Afr Amer 320 mL/min (>60); Glucose 90 mg/dL (74-106); Potassium 2.5 mmol/L (3.5-5.1); Sodium Level 137 mmol/L (136-145)
[2023-03-05 08:00] VITALS: BP 145/94; PULSE 96; RESP 16; TEMP 36.4; O2SAT 98
[2023-03-05] MEDS: Na Biphos/Potassium Phosphate PACKET 1 PACKET PO (08:39)
[2023-03-05] MEDS: Potassium Chloride 10mEq/100mL 10 MEQ/100 ML IV.SOLN. 100 MEQ IV BOLUS ×4 (09:11→12:27)
[2023-03-05] MEDS: Famotidine 20 MG Tablet PO (09:12)
[2023-03-05] MEDS: Ondansetron 4 MG/2 ML Vial IV (09:18)
[2023-03-05] MEDS: 0.9% Saline Lock 10 ML Syringe IV (09:18)
[2023-03-05 09:34] LABS: Bedside Glucose 122 mg/dL (74-106)
[2023-03-05] MEDS: Sucralfate 1 GM Tablet PO (10:29)
--- NOTE | 2023-03-05 10:29 | CASEMGMT ---
SARA NICOLE chart review: Patient was admitted 02/15-02/17/23 for DKA. See CM assessment from 02/17/23. Patient was discharged home with break out worker follow-up 02/19/23. Patient returned to ED on 03/01-03/02/23 for N/V and was discharged home with prescriptions sent to [facility] in [place]. Patient returned 03/03/23 for continued N/V and was admitted to monitor for DKA. It was noted the patient did not fill prescriptions at [facility] from ED. SARA NICOLE called Dr. Chow's office to inquire about next appointment, patient has appointment for 04/10 but was on waitlist for sooner appointment. Per Velma at Dr. Chow's office appointment available for 03/13/23 1:45pm. SARA NICOLE in to discuss readmit with patient. Patient states she did not fill prescription as [facility] was closed on Friday and she did not have a ride on Friday morning to fill prescriptions. SARA NICOLE updated patient regarding appointment on 03/13/23 and was agreeable to appointment. SARA NICOLE confirmed appointment on 03/13/[address] Chow's office. SARA NICOLE discussed transportation for appointment and assisted patient scheduling transport with insurance. Patient called insurance and arranged for transportation and will be picked up at 1:00 prior to appt confirmation #[id number]. Patient agreeable to have prescriptions fill at [facility] retail at discharge. Patient had no further questions or concerns at this time.
[2023-03-05] MEDS: Insulin Lispro 100 UNIT/ML INSULN.PEN SC (12:40)
[2023-03-05] MEDS: Insulin Lispro 100 UNIT/ML INSULN.PEN 15 UNIT SC (12:41)
--- NOTE | 2023-03-05 12:41 | DCINST_ITS ---
Discharge Instructions Diet Discharge Diet: No restrictions Activity Discharge Activity: Return to Normal Activity Weight Bearing Status: Full weight bearing Follow Up Care Please Follow Up With: Minnie Hodge When: as needed Test Results: Test results from this visit will be discussed in further detail at your follow- up appointment, if applicable. Pending Tests Upon Discharge: none Discharge Plan Admission Admit Date/Time: 03/03/23 15:17 Primary Reason for Your Visit: DKA Attending Provider: Diego Haas Primary Care Provider: Minnie Hodge Consulting Providers: Uziel Mahmood Instructions Additional Instructions / Restrictions: Please take your insulin at home as previously prescribed. Continue to push intake of high electrolyte fluids, as well as potassium rich foods. Continue to treat your esophagitis with Pepcid twice daily, sucralfate and ibuprofen as needed. Follow-up with your primary care doctor and/or your orthopedic coder as needed. Discharge Orders/Prescriptions Prescriptions: New ondansetron 4 mg tablet,disintegrating 4 mg PO Q8H PRN (Reason: nausea and vomiting) 7 Days Qty: 14 0RF Continued hydroxyzine pamoate [Vistaril] 25 mg capsule 25 mg PO QHS Qty: 30 6RF albuterol sulfate [Ventolin HFA] 18 GM HFA aerosol inhaler 2 puff inhalation Q4H PRN (Reason: SHORTNES OF BREATH/WHEEZING) fluticasone propionate 50 mcg/actuation spray,suspension 2 spray INTRANASAL DAILY insulin aspart U-100 [Novolog FlexPen U-100 Insulin] 100 unit/mL (3 mL) insulin pen 15 unit subcut TID insulin glargine [Basaglar KwikPen U-100 Insulin] 100 unit/mL (3 mL) insulin pen 20 unit subcut QHS No Action (DME) Dexcom G6 Sensor Device See Rx Instructions .Route Qty: 10 5RF Rx Instructions: As directed (DME) Dexcom G6 Transmitter Device See Rx Instructions .Route Qty: 1 3RF Rx Instructions: As directed (DME) pen needle, diabetic [BD Ultra-Fine Opal Pen Needle] 32 gauge x 5/32 needle See Rx Instructions .ROUTE .MEDSUPPLY Qty: 120 5RF Rx Instructions: 4 times daily (DME) Omnipod 5 G6 Pods (Gen 5) Cartridge See Rx Instructions .Route Qty: 45 1RF Rx Instructions: change every 48-72 hours (DME) Omnipod 5 G6 Intro Kit (Gen 5) Cartridge See Rx Instructions .Route Qty: 1 0RF Rx Instructions: As directed (DME) Ketone Urine Test Strip See Rx Instructions .ROUTE .MEDSUPPLY Qty: 50 1RF Rx Instructions: once/day Referrals / Follow Up: Minnie Hodge [Primary Care Provider] - Pj Chow MD [Med Staff - Courtesy Staff] - 03/13/23 1:45 pm (Transportation was scheduled through your insurance with pickup time between 1:00-1:15 [facility] #[id number]. ) Disposition Disposition (needs filled in before D/C Order can be placed): Home, Self Care
--- NOTE | 2023-03-05 12:48 | DS.PCM_ITS ---
Providers Date of Admission: 03/03/23 Date of Discharge: 03/05/23 Primary Care Physician: Minnie Hodge Reason For Visit: DKA Diagnosis Discharge Diagnosis (1) DKA (diabetic ketoacidosis): Status: Acute Code(s): E11.10 - Type 2 diabetes mellitus with ketoacidosis without coma Plan Medications at Discharge Home Medications albuterol sulfate 90 mcg/actuation aerosol inhaler (Ventolin HFA) 2 puff inhalation Q4H PRN SHORTNES OF BREATH/WHEEZING 08/25/18 Ketone Urine Test (acetone (urine) test) #50 ea 11/05/21 fluticasone propionate 50 mcg/actuation nasal spray,suspension 2 spray intranasal DAILY NASAL CONGESTION 11/21/22 blood-glucose sensor (Dexcom G6 Sensor device) #10 ea 11/23/22 blood-glucose transmitter (Dexcom G6 Transmitter device) #1 ea 11/23/22 insulin pump cart,automated,BT (Omnipod 5 G6 Pods (Gen 5) subcutaneous cartridge) #45 ea 11/23/22 insulin pump cartridge,automated dose,BT with controller subcutaneous (Omnipod 5 G6 Intro Kit (Gen 5) subcutaneous cartridge with controller) #1 ea 11/23/22 pen needle, diabetic 32 gauge x 5/32 (BD Ultra-Fine Opal Pen Needle) #120 ea 11/23/22 hydroxyzine pamoate 25 mg capsule (Vistaril) 25 mg PO QHS ITCHING #30 caps 01/13/23 insulin aspart U-100 100 unit/mL (3 mL) subcutaneous pen (Novolog FlexPen U-100 Insulin aspart) 15 unit subcut TID 03/01/23 insulin glargine 100 unit/mL (3 mL) subcutaneous pen (Basaglar KwikPen U-100 Insulin) 20 unit subcut QHS 03/01/23 ondansetron 4 mg disintegrating tablet 4 mg PO Q8H PRN nausea and vomiting 7 days #14 tabs 03/05/23 Hospital Course Operations None Procedures - (Chest x-ray, CT abdomen pelvis with IV contrast) Summary of Care Provided Minutes Spent on Discharge: 38 Hospital Course: Patient is a 22 female with history significant for insulin-dependent type 1 diabetes mellitus, asthma and anxiety/depression who presented to the [facility] ED on 03/03 with concern for being in DKA. Patient notably had had several previous admissions for DKA. She was diagnosed with type 1 diabetes at age 9. Last admission for DKA was 3 to 4 weeks prior to this admission. She was also seen in the emergency department on 03/01 for nausea and vomiting, but was able to be discharged from there. She stated that she got home and still was not able to take in much food or drink and thus needed to return to the hospital. Patient says that she was taking her home insulin regimen as prescribed since the previous admission 3 to 4 weeks prior to this. However she had had significant nausea and vomiting as well as some diarrhea, and she felt that this was making her blood glucose control difficult. Labs on admission were abnormal, but not consistent with DKA. She did have a bicarb level of 17 but her anion gap was only 11. Other lab abnormalities included a low potassium of 2.6 and a low phosphorus of 1.7. Her blood glucose was 246 on admission. Decision was made to restart her home short acting and long-acting insulin regimen rather than to start an insulin drip. Patient had a CT abdomen pelvis with IV contrast done on admission for her nausea and vomiting and abdominal pain, which showed distal esophageal wall thickening suggesting esophagitis but was otherwise benign. Chest x-ray on admission was normal. Patient's p.o. intake was somewhat limited due to her discomfort from esophagitis. Suspected that the esophagitis was due to her recent episodes of vomiting. By day 3 of admission, patient had good p.o. intake and felt ready for discharge. She did have fairly persistent hypokalemia and this was aggressively repleted. Also repleted her phosphorus aggressively. She was discharged home in stable condition on her home insulin regimen. Discharge diagnoses: Hyperglycemia in setting of insulin-dependent type 1 diabetes mellitus Esophagitis Hypokalemia Hypophosphatemia Asthma Total clinical time spent by myself addressing the patient's discharge needs: 38 minutes. Physical Exam Const alert, oriented x3, no apparent distress, average body habitus, healthy appearing and well nourished Constitutional Narrative: Pleasant female, conversing normally, no acute distress. Appeared less fatigued today. General Appearance: cooperative, comfortable, well kempt and well developed HEENT normocephalic, head/scalp atraumatic, hearing grossly normal bilaterally, nasal mucous membranes and turbinates normal and moist oral mucous membranes Eyes PERRL, EOMs intact bilaterally and conjunctivae normal Neck full ROM, no lymphadenopathy and supple Lymph Lymphatic: no lymphadenopathy noted Chest inspection of chest normal Resp normal respiratory effort, normal air movement, no use of accessory muscles and clear to auscultation bilaterally Cardio regular rate, regular rhythm, no murmurs and peripheral pulses 2+ throughout GI normal to inspection, nondistended, normoactive bowel sounds, soft to palpation, non-tender and non-distended Back/Spine normal ROM Extremity normal to inspection, full ROM and no pedal edema Skin no rashes or lesions noted Psych mental status grossly normal Weight / BMI Weight Weight: 57.2 kg Body Mass Index (BMI) 25.4 ABG / Lab / Microbiology Data 03/04/23 03:15 03/05/23 13:40 Laboratory: Laboratory Results - last 24 hr 03/04/23 14:12: POC Glucose 180 H 03/04/23 18:06: POC Glucose 130 H 03/04/23 21:09: POC Glucose 173 H 03/05/23 01:16: POC Glucose 127 H 03/05/23 05:10: Sodium 137, Potassium 2.5 L*, Chloride 103, Carbon Dioxide 28.0, Anion Gap 6, BUN 1 L, Creatinine 0.32 L, Estim Creat Clear Calc 244.79, Est GFR (MDRD) Af Amer 320, Est GFR (MDRD) Non-Af 265, BUN/Creatinine Ratio 3.1 L, Glucose 90, Calcium 8.2 L 03/05/23 05:11: POC Glucose 90 03/05/23 05:57: POC Glucose 87 03/05/23 09:11: POC Glucose 122 H D/C Instructions Discharge Diet: No restrictions Weight Bearing Status: Full weight bearing Pending Tests Upon Discharge: none Please Follow Up With: Minnie Hodge When: as needed Meaningful Use Info Meaningful Use Diagnoses (Choose all that apply): None applicable Discharge Plan Admission Admit Date/Time: 03/03/23 15:17 Primary Reason for Your Visit: DKA Attending Provider: Diego Haas Primary Care Provider: Minnie Hodge Consulting Providers: Uziel Mahmood Instructions Additional Instructions / Restrictions: Please take your insulin at home as previously prescribed. Continue to push intake of high electrolyte fluids, as well as potassium rich foods. Continue to treat your esophagitis with Pepcid twice daily, sucralfate and ibuprofen as needed. Follow-up with your primary care doctor and/or your house director as needed. Discharge Orders/Prescriptions Prescriptions: New ondansetron 4 mg tablet,disintegrating 4 mg PO Q8H PRN (Reason: nausea and vomiting) 7 Days Qty: 14 0RF Continued hydroxyzine pamoate [Vistaril] 25 mg capsule 25 mg PO QHS Qty: 30 6RF albuterol sulfate [Ventolin HFA] 18 GM HFA aerosol inhaler 2 puff inhalation Q4H PRN (Reason: SHORTNES OF BREATH/WHEEZING) fluticasone propionate 50 mcg/actuation spray,suspension 2 spray INTRANASAL DAILY insulin aspart U-100 [Novolog FlexPen U-100 Insulin] 100 unit/mL (3 mL) insulin pen 15 unit subcut TID insulin glargine [Basaglar KwikPen U-100 Insulin] 100 unit/mL (3 mL) insulin pen 20 unit subcut QHS No Action (DME) Dexcom G6 Sensor Device See Rx Instructions .Route Qty: 10 5RF Rx Instructions: As directed (DME) Dexcom G6 Transmitter Device See Rx Instructions .Route Qty: 1 3RF Rx Instructions: As directed (DME) pen needle, diabetic [BD Ultra-Fine Opal Pen Needle] 32 gauge x 5/32 needle See Rx Instructions .ROUTE .MEDSUPPLY Qty: 120 5RF Rx Instructions: 4 times daily (DME) Omnipod 5 G6 Pods (Gen 5) Cartridge See Rx Instructions .Route Qty: 45 1RF Rx Instructions: change every 48-72 hours (DME) Omnipod 5 G6 Intro Kit (Gen 5) Cartridge See Rx Instructions .Route Qty: 1 0RF Rx Instructions: As directed (DME) Ketone Urine Test Strip See Rx Instructions .ROUTE .MEDSUPPLY Qty: 50 1RF Rx Instructions: once/day Referrals / Follow Up: Minnie Hodge [Primary Care Provider] - Pj Chow MD [Med Staff - Courtesy Staff] - 03/13/23 1:45 pm (Transportation was scheduled through your insurance with pickup time between 1:00-1:15 confirmation #[id number]. ) Disposition Disposition (needs filled in before D/C Order can be placed): Home, Self Care Charges/Coding Visit Charges Inpatient E&M: 09764 Disch Hosp >30min
[2023-03-05 12:59] LABS: Bedside Glucose 186 mg/dL (74-106)
[2023-03-05 13:59] LABS: Anion Gap 10 (5-15); BUN < 1 mg/dL (7-18); Calcium,Total 8.4 mg/dL (8.5-10.1); Chloride 100 mmol/L (98-107); Creatinine, Serum 0.35 mg/dL (0.55-1.02); EST Glomerular Filtration Rate 243 mL/min (>60); Est Glom Filt Rate - Afr Amer 294 mL/min (>60); Estimated Creatinine Clearance 223.81 ml/min; Glucose 181 mg/dL (74-106); Potassium 3.2 mmol/L (3.5-5.1); Sodium Level 136 mmol/L (136-145)
[2023-03-05 14:00] VITALS: BP 129/98; PULSE 102; RESP 15; TEMP 36.7; O2SAT 100
[2023-03-05 14:16] VITALS: BP 129/98; PULSE 89; RESP 16; TEMP 36.6; O2SAT 99
[2023-03-05] MEDS: Potassium Chloride Oral Tablet 20 MEQ 60 MEQ PO (14:34)
== END 2023-03-05 14:45 | disposition home or self-care (01) | DRG 420 ==
LOC: ED 14:46 → ICU 03-04 07:12
PROVIDERS: Admitting Provider Family Medicine; Emergency Provider Emergency Medicine; Visit Provider Hospitalist
DX: E10.10 Type 1 diabetes mellitus with ketoacidosis without coma (principal); Z79.4 Long term (current) use of insulin; E83.39 Other disorders of phosphorus metabolism; J45.909 Unspecified asthma, uncomplicated; E86.0 Dehydration; K20.80 Other esophagitis without bleeding; E87.6 Hypokalemia; Z96.41 Presence of insulin pump (external) (internal); Z79.899 Other long term (current) drug therapy; R11.2 Nausea with vomiting, unspecified
CPT/HCPCS: 71046; 74177; 80048; 80076; 81001; 81025; 82009; 82803; 82962; 83605; 83690; 83735; 84100; 84703; 85025; 96361; 96365; 96366; 96367; 96374; 96375; 96376; 97802; 99221; 99282; 99285; J7030; J7050; Q9967; A4216; G0378; J2405; J3490

== ENCOUNTER → 2023-08-13 | Outpatient (CLI) | payer MEDICAID, SELFPAY ==
[2023-08-13 16:03] LABS: Microalbumin,Random Urine < 5.0 mg/L (NO RANGE EST.)
[2023-08-13 16:09] LABS: Vitamin D,25 Hydroxy 25.2 ng/mL
[2023-08-13 16:27] LABS: AST(SGOT) 19 U/L (15-37); Alanine Aminotransfer ALT/SGPT 16 U/L (13-56); Albumin, Serum 3.6 g/dL (3.2-5.0); Alkaline Phosphatase 90 U/L (45-117); Anion Gap 8 (5-15); BUN 14 mg/dL (7-18); BUN/Creat Ratio 22.7 RATIO (10-20); Calcium,Total 9.1 mg/dL (8.5-10.1); Chloride 105 mmol/L (98-107); Cholesterol 201 mg/dL (200); Creatinine, Serum 0.62 mg/dL (0.55-1.02); EST Glomerular Filtration Rate 125 mL/min (>60); Est Glom Filt Rate - Afr Amer 151 mL/min (>60); Globulin 3.6 g/dL (2.2-4.2); Glucose 273 mg/dL (74-106); High Density Lipoprotein 99 mg/dL; Potassium 4.3 mmol/L (3.5-5.1); Protein, Total 7.2 g/dL (6.4-8.2); Sodium Level 136 mmol/L (136-145); Thyroid Stim Hormone (TSH) 2.35 uIU/mL (0.358-3.74); Triglycerides 70 mg/dL; Very Low Density Lipoprotein 14 mg/dL (5-40)
== END | disposition home or self-care (01) ==
LOC: LAB 14:29
PROVIDERS: Referring Provider Nurse Practitioner Family; Visit Provider Nurse Practitioner Family
DX: E10.65 Type 1 diabetes mellitus with hyperglycemia (principal)
CPT/HCPCS: 36415; 80053; 80061; 82043; 82306; 82570; 84443

== ENCOUNTER 2023-08-23 12:37 | Emergency (ER) | payer SELFPAY ==
[2023-08-23 12:39] VITALS: BP 126/84; PULSE 123; RESP 16; TEMP 37.8; O2SAT 99; BMI 31.3
--- NOTE | 2023-08-23 12:42 | EDS_ITS ---
HPI HPI - URI History of Present Illness Chief Complaint: Cough PFSH PFSH Medical History Anxiety and depression Asthma Cannabis hyperemesis syndrome concurrent with and due to cannabis abuse Diabetes type 1, controlled DKA, type 1 History of marijuana use Hypokalemia Hypophosphatemia Implanon in place Insulin pump titration Presence of insulin pump Home Medications albuterol sulfate 90 mcg/actuation aerosol inhaler (Ventolin HFA) 2 puff inhalation Q4H PRN SHORTNES OF BREATH/WHEEZING 08/25/18 [History Last Taken 03/02/23] Ketone Urine Test (acetone (urine) test) #50 ea 11/05/21 [Rx Last Taken Unknown] fluticasone propionate 50 mcg/actuation nasal spray,suspension 2 spray intranasal DAILY NASAL CONGESTION 11/21/22 [History Last Taken 02/12/23] blood-glucose transmitter (Dexcom G6 Transmitter device) #1 ea 11/23/22 [Rx Last Taken Unknown] pen needle, diabetic 32 gauge x 5/32 (BD Ultra-Fine Opal Pen Needle) #120 ea 11/23/22 [Rx Last Taken Unknown] hydroxyzine pamoate 25 mg capsule (Vistaril) 25 mg PO QHS ITCHING #30 caps 01/13/23 [Rx Last Taken 02/12/23] insulin glargine 100 unit/mL (3 mL) subcutaneous pen (Basaglar KwikPen U-100 Insulin) 20 unit subcut QHS 03/01/23 [History Last Taken 03/02/23] ondansetron 4 mg disintegrating tablet 4 mg PO Q8H PRN nausea and vomiting 7 days #14 tabs 03/05/23 [Rx Last Taken Unknown] insulin pump cart,automated,BT (Omnipod 5 G6 Pods (Gen 5) subcutaneous cartridge) #45 ea 03/13/23 [Rx Last Taken Unknown] blood-glucose sensor (Dexcom G6 Sensor device) #9 ea 05/12/23 [Rx Last Taken Unknown] insulin aspart U-100 100 unit/mL (3 mL) subcutaneous pen (Novolog FlexPen U-100 Insulin aspart) 15 unit (0.15 mL) subcut TID #40.5 mL 06/05/23 [Rx Last Taken Unknown] blood-glucose transmitter (Dexcom G6 Transmitter device) #1 ea 08/14/23 [Rx Last Taken Unknown] insulin pump cartridge,automated dose,BT with controller subcutaneous (Omnipod 5 G6 Intro Kit (Gen 5) subcutaneous cartridge with controller) #1 ea 08/15/23 [Rx Last Taken Unknown] ondansetron 4 mg disintegrating tablet 4 mg PO Q8H PRN PRN Nausea 5 days #15 tabs 08/23/23 [Rx Last Taken Unknown] oseltamivir 75 mg capsule (Tamiflu) 75 mg PO DAILY #5 caps 08/23/23 [Rx Last Taken Unknown] Allergy/AdvReac Type Severity Reaction Status Date / Time bee venom protein (honey bee) Allergy Severe Anaphylaxis Verified 08/23/23 12:39 [bee stings] Penicillins Allergy Unknown Verified 08/23/23 12:39 Sulfa (Sulfonamide Allergy Unknown Verified 08/23/23 12:39 Antibiotics) prednisone AdvReac Vomiting Verified 08/23/23 12:39 Family History Grandmother Diabetes Sister Asthma Brother Asthma Mother Heart disease Surgical History History of placement of ear tubes Social History household members: family Smoking Status: Never smoker second hand exposure: No alcohol intake: never substance use type: other details: Cannabis, last use ~ 1 month prior, ingested. EXAM Physical Exam Const Vital Signs: 08/23/23 12:39 08/23/23 13:22 08/23/23 15:33 Temperature 100.0 F H Temperature Source Temporal Pulse Rate 123 H 90 Respiratory Rate 16 18 Respiratory Effort Normal Non-Labored Respiratory Depth Normal Blood Pressure 126/84 H 130/62 H Blood Pressure Mean 98 84 Pulse Ox 99 99 Oxygen Delivery Method Room Air Room Air MDM MDM MDM Narrative Medical decision making narrative: HISTORY OF PRESENT ILLNESS: 23-year-old female presents with cough congestion vomiting. She states she has had cough, congestion for the last 2 days. She notes associated shortness of breath. Also notes nonbloody nonbilious vomitus. She complains of chest discomfort with vomiting and cough. Denies leg swelling. Denies any bleeding diathesis. The patient denies recent surgery in the last 4 weeks or immobilization in the last 3 days, denies previous diagnosis of DVT or PE, hemoptysis, unilateral leg swelling or malignancy with treatment the last 6 months or palliative. No estrogen use noted. Denies any abdominal pain. Notes her blood sugars have been running really good . She states she has got a insulin pump and that has been functioning. REVIEW OF SYSTEMS: Pertinent positives: Cough, congestion, vomiting, shortness of breath Pertinent negatives: Syncope, leg swelling, focal weakness, syncope PHYSICAL EXAM: Nursing triage notes reviewed, Vital signs reviewed Constitutional: please see mdm HENT: MMM Eyes: Pupils equal round and reactive to light, Extraocular muscles intact Neck: No stridor, no JVD, full neck ROM Lungs: Clear to auscultation, No wheezing or rales. No increased work of breathing, no conversational dyspnea, no accessory muscle use, no nasal flaring. No respiratory distress noted Heart: Regular rate and rhythm, No murmurs, No rubs and No gallops, 2+ distal pulses (radial, femoral, posterior tibial) in all extremities Abdomen: Soft, there is no tenderness, rigidity, rebound or guarding, no obvious peritoneal signs, no palpable pulsatile abdominal masses, no auscultated abdominal bruit : No CVAT Extremities: No edema Neuro: No focal neurological deficits, cranial nerves II through XII intact, 5/5 strength in all extremities. Intact sensation to light touch in all extremities, 2+ reflexes bilateral patella tendons. Normal gait. No ataxia. Skin: No rash or lesions noted MEDICAL DECISION MAKING: Chief Complaint: Cough, vomiting External records reviewed: Seen for DKA and November 2022 Factors affecting care: Type 1 diabetes, anxiety Social determinants of health: Marijuana use History obtained from others: Patient's friend Consults: none [facility] Narrative: Patient was initially tachycardic, febrile, abdomen soft nontender. Lungs were clear. No obvious focal consolidation on auscultation. I considered the following differential diagnosis: Viral illness, pneumonia, DKA, dehydration, electrolyte disturbance, arrhythmia, myocardial anemia, I obtained a broad lab and imaging workup to further elucidate the etiology of the patient's complaints. ALL IMAGES (IF OBTAINED) HAVE BEEN PERSONALLY REVIEWED AND INTERPRETED BY MYSELF. VBG without significant acidosis, no evidence of low bicarb or DKA CBC without leukocytosis, severe anemia, no thrombocytopenia. CMP without evidence of acute kidney injury, significant electrolyte abnormality, anion gap, no evidence hepatobiliary pathology. High-sensitivity troponin is negative, no evidence of myocardial ischemia Urinalysis shows no evidence of urinary inflammation suggestive of UTI Serum acetone small Lipase is wnl indicating no pancreatic inflammation.\I have personally reviewed the patient's chest x-ray. Chest x-ray is unremarkable for pulmonary edema, pneumothorax, pneumonia or focal cardiopulmonary abnormality. COVID flu RSV swab positive for influenza A The synthesis of the patient history, physical exam, labs images suggest influenza A. No evidence of DKA or pneumonia. Will give Tamiflu for home- going. Tylenol ibuprofen instructions given. Strict return precautions discussed The patient and/or family, caregivers express understanding. The patient and/or family, caregivers agrees with the plan. Shared decision making: I will have a discussion with the patient and or visitors regarding risk/benefits of further testing or admission. They will be made aware of of the risk/benefits inherent in this decision they will be given the opportunity to voice understanding. Total critical care time today provided was at least 0 minutes. This excludes separately billable procedures. Critical care time (if documented) is secondary to the patient having high probability of clinically significant/life threatening deterioration in the patient's condition which required my urgent intervention. Impression: 1. Cough 2. Nausea vomiting 3. Type 1 diabetes Dispo: Discharge This note was generated with [employer] dictation software. It may contain incorrect words, spelling, and punctuation that were not noted in review of the chart prior to signing. Lab Data Labs: Laboratory Results - last 24 hr 08/23/23 08/23/23 08/23/23 13:10 13:20 13:25 WBC 3.5 L RBC 4.77 Hgb 13.0 Hct 40.6 MCV 85.1 MCH 27.3 MCHC 32.0 RDW Std Deviation 41.6 RDW Coeff of Marilynn 13.3 Plt Count 312 MPV 8.4 Immature Gran % (Auto) 0.300 Neut % (Auto) 70.6 H Lymph % (Auto) 16.8 L [place] % (Auto) 11.4 H Eos % (Auto) 0.0 Baso % (Auto) 0.9 Absolute Neuts (auto) 2.5 Absolute Lymphs (auto) 0.59 L Nucleated RBC % 0 Sodium 139 Potassium 3.6 Chloride 109 H Carbon Dioxide 23.0 Anion Gap 7 BUN 13 Creatinine 0.65 Estim Creat Clear Calc 115.76 Est GFR (MDRD) Af Amer 143 Est GFR (MDRD) Non-Af 118 BUN/Creatinine Ratio 20.0 Glucose 159 H Calcium 8.8 Total Bilirubin 0.60 AST 17 ALT 19 Alkaline Phosphatase 74 Troponin I High Sens 3 Total Protein 7.4 Albumin 3.6 Globulin 3.8 Albumin/Globulin Ratio 0.9 Lipase 11 L Urine Color Yellow Urine Clarity Clear Urine pH 6.0 Ur Specific [place] 1.015 Urine Protein 30 H Urine Glucose (UA) Normal Urine Ketones 15 H Urine Occult Blood Negative Urine Nitrite Negative Urine Bilirubin Negative Urine Urobilinogen Normal Ur Leukocyte Esterase Negative Urine RBC 0 SEEN Urine WBC 0 SEEN Ur Squamous Epith Cells 0 SEEN Urine Bacteria 0 SEEN Urine Mucus 0 SEEN Urine Test Negative Acetone Level SMALL H ABG Data ABG results: ABG 08/23/23 13:24 Specimen Type LUIS Sample Site Not entered VBG pH 7.52 H VBG pO2 64 H VBG HCO3 23 VBG Total CO2 24 VBG O2 Sat (Calc) 95 H VBG Base Excess 0 POC Mix VBG pCO2 Pt Tmp 28.3 L O2 Delivery Device Not entered Radiography Diagnostic Testing: Clinical Impression(s) from Imaging Studies Chest X-Ray 08/23/23 13:50 IMPRESSION: Normal x-ray examination of the chest. Electronically Signed: Jos Cortez MD at 14:44 EST Reading Location ID and State: [address] [place] [address] , Service support , Discharge Plan Triage Chief Complaint: Cough ED Provider: Franky Najera Dx/Rx/DC Orders Clinical Impression: Influenza A Instructions: The Flu (Influenza) Prescriptions: New oseltamivir [Tamiflu] 75 mg capsule 75 mg PO DAILY Qty: 5 0RF ondansetron 4 mg tablet,disintegrating 4 mg PO Q8H PRN PRN (Reason: Nausea) 5 Days Qty: 15 0RF No Action hydroxyzine pamoate [Vistaril] 25 mg capsule 25 mg PO QHS Qty: 30 6RF (DME) Omnipod 5 G6 Pods (Gen 5) Cartridge See Rx Instructions .Route Qty: 45 1RF Rx Instructions: change every 48-72 hours (DME) Dexcom G6 Sensor Device See Rx Instructions .Route Qty: 9 1RF Rx Instructions: 1 sensor q 10 days albuterol sulfate [Ventolin HFA] 18 GM HFA aerosol inhaler 2 puff inhalation Q4H PRN (Reason: SHORTNES OF BREATH/WHEEZING) fluticasone propionate 50 mcg/actuation spray,suspension 2 spray INTRANASAL DAILY (DME) Dexcom G6 Transmitter Device See Rx Instructions .Route Qty: 1 3RF Rx Instructions: As directed (DME) pen needle, diabetic [BD Ultra-Fine Opal Pen Needle] 32 gauge x 5/32 needle See Rx Instructions .ROUTE .MEDSUPPLY Qty: 120 5RF Rx Instructions: 4 times daily insulin glargine [Basaglar KwikPen U-100 Insulin] 100 unit/mL (3 mL) insulin pen 20 unit subcut QHS ondansetron 4 mg tablet,disintegrating 4 mg PO Q8H PRN (Reason: nausea and vomiting) 7 Days Qty: 14 0RF (DME) Ketone Urine Test Strip See Rx Instructions .ROUTE .MEDSUPPLY Qty: 50 1RF Rx Instructions: once/day insulin aspart U-100 [Novolog FlexPen U-100 Insulin] 100 unit/mL (3 mL) insulin pen 15 unit subcut TID Qty: 40.5 1RF (DME) Dexcom G6 Transmitter Device See Rx Instructions .Route Qty: 1 1RF Rx Instructions: As directed (DME) Omnipod 5 G6 Intro Kit (Gen 5) Cartridge See Rx Instructions .Route Qty: 1 0RF Rx Instructions: As directed Stand Alone Forms: ED Work / School Excuse Primary Care Provider: Minnie Hodge Referrals: Minnie Hodge [Primary Care Provider] - Activity Restrictions/Additional Instructions: Thank you for trusting us with your care today! Please take Tylenol (2 pills, 650 mg), ibuprofen (2 pills, 400 mg) every 6 hours as needed for pain and fever control. Please drink plenty of fluids. Please take Tamiflu and Zofran as prescribed. Please return to the emergency department if your symptoms change or worsen. Please follow with your primary care physician for further outpatient evaluation and management. Disposition Disposition: Home, Self Care Discharge Date/Time: 08/23/23 15:36
--- OUTSIDE RECORDS SUMMARY | 2023-08-23 13:03 | XMS RPT_ITS | CCD ---
Author Name Unknown Address [address] [place] [address] Organization [facility] Care Team Providers Care Steel Molder Name Role Phone Citlali Levy MD Unavailable [phone] Radha Sterling NP Unavailable [phone] Rose Lieberman Unavailable Unavailab Bhumika Ladd NP Unavailable Arti Cassidy Unavailable Unavailable Arti Cassidy Unavailable Unavailable Radha Sterling NP Unavailable Citlali Levy MD Unavailable [phone] Rose Lieberman Unavailable Unavailab CINDY Martin MD Attending Unavailable CINDY GRIMM MD Primary Care Unavailable CINDY GRIMM MD Admitting Unavailable Josi Candelario MD Primary Care Provider [phone] Josi Candelario MD Primary Care Provider [phone] JOSI CANDELARIO Primary Care Unavailable JOSI CANDELARIO Primary Care Unavailable RAKAN HODGE Attending Unavailable JOSI CANDELARIO Primary Care Unavailable JOSI CANDELARIO Primary Care Unavailable RAKAN HODGE Attending Unavailable JOSI CANDELARIO Primary Care Unavailable Allergies Allergy Classification Reported Allergen(s) Allergy Type Date of Onset Reaction(s) Facility (9 sources) apis mellifera venom; Translations: [BEE STINGS] allergy to substance 04-02-20 17 [facility] Work Phone: (18 sources) Egg drug allergy 01-03-20 17 rash [facility] Work Phone: (18 sources) ibuprofen drug allergy 01-03-20 17 rash [facility] Work Phone: (18 sources) Sulfonamides (Antibiotic) drug allergy 01-03-20 17 rash [facility] Work Phone: (9 sources) Melatonin; Translations: [MELATONIN] Drug Allergy 06-07-20 21 Diarrhea [facility] (3 sources) Penicillins; Translations: [PENICILLINS] Drug Allergy 12-31-19 12 Rash [facility] (9 sources) Sulfamethoxazole / Trimethoprim; Translations: [SULFATRIM DS] Drug Allergy 12-31-19 12 Vomiting [facility] (6 sources) Penicillins Drug Allergy 12-31-19 12 Rash [facility] Medications Current Medications Medication Drug Class(es) Dates Sig (Normalized) Sig (Original) etonogestrel 68 mg drug implant (20 sources) Progestin Start: 04-13-2020 End: 04-13-2023 etonogestrel (NEXPLANON) subdermal implant 68 mg Indications: Insertion of implantable subdermal contraceptive 1 Each by SUBDERMAL route as directed. 1 Each 0 04/13/2020 04/13/2023 Active Completed/Discontinued Medications Medication Drug Class(es) Dates Sig (Normalized) Sig (Original) ACETONE (URINE) TEST (3 sources) Start: 04-07-2017 KETOSTIX STRP use to check ketones when pt has fever, is vomiting or has blood glucose greater than 300 ICD 10 : E10.9 ACETONE (URINE) TEST [id number] Radha Sterling NP Problems Active Problems Problem Classification Problem Date Documented Date Episodic/Chronic Asthma (20 sources) Asthma; Translations: [Unspecified asthma, uncomplicated] Onset: 12-31-2011 01-02-2017 Chronic Diabetes mellitus with complications (3 sources) Type 1 diabetes mellitus with ketoacidosis without coma; Translations: [Type 1 diabetes mellitus with ketoacidosis without coma] Onset: 02-10-2021 Chronic Diabetes mellitus without complication (20 sources) Type 1 diabetes mellitus without complications; Translations: [Type 1 diabetes mellitus] Onset: 12-31-2011 01-02-2017 Chronic Fluid and electrolyte disorders (2 sources) Dehydration; Translations: [Hypokalemia] Onset: 02-10-2021 Episodic Immunizations and screening for infectious disease (1 source) Contact with and (suspected) exposure to other viral communicable diseases; Translations: [Exposure to SARS-associated coronavirus] 04-07-2023 Episodic Menstrual disorders (13 sources) Irregular periods; Translations: [Irregular menstruation, unspecified] Onset: 02-20-2017 02-20-2017 Chronic Mood disorders (2 sources) Depressive disorder; Translations: [Depression, unspecified depression type] Chronic Nausea and vomiting (1 source) Nausea; Translations: [Nausea] 03-03-2023 Episodic Neoplasms of unspecified nature or uncertain behavior (1 source) Essential (hemorrhagic) thrombocythemia; Translations: [Essential (hemorrhagic) thrombocythemia] Onset: 02-10-2021 Chronic Other upper respiratory disease (18 sources) Seasonal allergy; Translations: [Other seasonal allergic rhinitis] Onset: 01-02-2017 01-02-2017 Chronic Other upper respiratory infections (1 source) Sore throat symptom; Translations: [Acute pharyngitis, unspecified] 04-07-2023 Episodic Residual codes; unclassified (1 source) Patient's other noncompliance with medication regimen; Translations: [Patient's other noncompliance with medication regimen] Onset: 02-10-2021 Episodic Spondylosis; intervertebral disc disorders; other back problems (1 source) Acute low back pain; Translations: [Acute midline low back pain without sciatica] Episodic Sprains and strains (1 source) Strain of back muscle; Translations: [Strain of muscle and tendon of back wall of thorax, initial encounter] Episodic Substance-related disorders (1 source) Nicotine dependence, unspecified, uncomplicated; Translations: [Nicotine dependence, unspecified, uncomplicated] Onset: 02-10-2021 Chronic Thyroid disorders (8 sources) Veronica thyroiditis; Translations: [Autoimmune thyroiditis] Onset: 01-11-2016 01-11-2016 Chronic Unclassified (8 sources) Contraception care education ; Translations: [Other specified counseling] Onset: 02-20-2017 02-20-2017 Unclassified (3 sources) Insertion of subcutaneous contraceptive done; Translations: [Encounter for surveillance of other contraceptives] Onset: 04-17-2017 04-21-2017 Unclassified (3 sources) Removal of subcutaneous contraceptive done; Translations: [Encounter for surveillance of other contraceptives] Onset: 04-17-2017 04-21-2017 Past or Other Problems Problem Classification Problem Date Documented Da te Episodic/Chronic Allergic reactions (11 sources) Dermatitis, unspecified; Translations: [Dermatitis, unspecified] Onset: 03-28-2017 03-28-2017 Episodic Contraceptive and procreative management (2 sources) Encounter for surveillance of other contraceptives; Translations: [Encounter for surveillance of other contraceptives] Onset: 04-17-2017 04-21-2017 Episodic Mycoses (11 sources) Mycosis; Translations: [Candidiasis, unspecified] Onset: 03-28-2017 03-28-2017 Episodic Results Test Name Value Interpretation Reference Range Facil ity Vital Signs Date Time Vital Sign Value Performing Clinician Facility 04-07-2023 12:21-0400 Body temperature 98.91 [degF] Laney Velez APRN.CNP Work Phone: [facility] 04-07-2023 12:21-0400 Body weight 63.05 kg Laney Velez APRN.CNP Work Phone: [facility] 04-07-2023 12:21-0400 Diastolic blood pressure 66 mm[Hg] Laney Velez APRN.CNP Work Phone: [facility] 04-07-2023 12:21-0400 Heart rate 112 /min Laney Velez APRN.CNP Work Phone: [facility] 04-07-2023 12:21-0400 Respiratory rate 16 /min Laney Velez APRN.CNP Work Phone: [facility] 04-07-2023 12:21-0400 SaO2% (BldA) [Mass fraction] 97 % Laney Velez APRN.CNP Work Phone: [facility] 04-07-2023 12:21-0400 Systolic blood pressure 112 mm[Hg] Laney Velez APRN.CNP Work Phone: [facility] 03-03-2023 10:33-0400 Body temperature 98.71 [degF] Rakan Hodge PA-C Work Phone: [facility] 03-03-2023 10:33-0400 Diastolic blood pressure 70 mm[Hg] Rakan Hodge PA-C Work Phone: [facility] 03-03-2023 10:33-0400 Heart rate 134 /min Rakan Hodge PA-C Work Phone: [facility] 03-03-2023 10:33-0400 Systolic blood pressure 130 mm[Hg] Rakan Hodge PA-C Work Phone: [facility] 01-16-2023 08:04-0400 Body temperature 98.1 [degF] Rakan Hodge PA-C Work Phone: [facility] 01-16-2023 08:04-0400 Body weight 63.5 kg Rakan Hodge PA-C Work Phone: [facility] 01-16-2023 08:04-0400 Diastolic blood pressure 80 mm[Hg] Rakan Hodge PA-C Work Phone: [facility] 01-16-2023 08:04-0400 Heart rate 94 /min Rakan Hodge PA-C Work Phone: [facility] 01-16-2023 08:04-0400 Respiratory rate 16 /min Rakan Hodge PA-C Work Phone: [facility] 01-16-2023 08:04-0400 Systolic blood pressure 130 mm[Hg] Rakan Hodge PA-C Work Phone: [facility] 12-31-2021 10:46-0400 Body temperature 98.2 [degF] Rakan Hodge PA-C Work Phone: [facility] 12-31-2021 10:46-0400 Body weight 58.97 kg Rakan Hodge PA-C Work Phone: [facility] 12-31-2021 10:46-0400 Diastolic blood pressure 78 mm[Hg] Rakan Hodge PA-C Work Phone: [facility] 12-31-2021 10:46-0400 Heart rate 96 /min Rakan Hodge PA-C Work Phone: [facility] 12-31-2021 10:46-0400 Respiratory rate 16 /min Rakan Hodge PA-C Work Phone: [facility] 12-31-2021 10:46-0400 Systolic blood pressure 112 mm[Hg] Rakan Hodge PA-C Work Phone: [facility] 12-26-2021 14:20-0400 Body temperature 98.6 [degF] Mateus Chow GRANULATING MACHINE OPERATOR.HYDROELECTRIC PLANT ELECTRICIAN Work Phone: [facility] 12-26-2021 14:20-0400 Body weight 58.51 kg Mateus Chow GRANULATING MACHINE OPERATOR.HYDROELECTRIC PLANT ELECTRICIAN Work Phone: [facility] 12-26-2021 14:20-0400 Diastolic blood pressure 70 mm[Hg] Mateus Chow GRANULATING MACHINE OPERATOR.HYDROELECTRIC PLANT ELECTRICIAN Work Phone: [facility] 12-26-2021 14:20-0400 Heart rate 103 /min Mateus Chow GRANULATING MACHINE OPERATOR.HYDROELECTRIC PLANT ELECTRICIAN Work Phone: [facility] 12-26-2021 14:20-0400 Respiratory rate 21 /min Mateus Chow GRANULATING MACHINE OPERATOR.HYDROELECTRIC PLANT ELECTRICIAN Work Phone: [facility] 12-26-2021 14:20-0400 SaO2% (BldA) [Mass fraction] 98 % Mateus Chow GRANULATING MACHINE OPERATOR.HYDROELECTRIC PLANT ELECTRICIAN Work Phone: [facility] 12-26-2021 14:20-0400 Systolic blood pressure 110 mm[Hg] Mateus Chow GRANULATING MACHINE OPERATOR.HYDROELECTRIC PLANT ELECTRICIAN Work Phone: [facility] 02-10-2021 20:44-0400 SaO2% (BldA) [Mass fraction] 97 % CINDY GRIMM [facility] Encounters Encounter Date Encounter Type Care Provider Facility Start: 04-07-2023 End: 04-07-2023 ambulatory JOSI CANDELARIO Facility:[facility] Start: 04-07-2023 End: 04-07-2023 Patient encounter procedure Laney Velez GRANULATING MACHINE OPERATOR.HYDROELECTRIC PLANT ELECTRICIAN Work Phone: [facility] Procedures Date Procedure Procedure Detail Performing Clinician Start: 04-07-2023 STREP A MOLECULAR (POC) [facility] Provider Start: 03-03-2023 Urnls dip stick/tabl et rgnt auto w/o microscopy Rakan Hodge PA-C Work Phone: Start: 03-03-2023 Gluc bld gluc mntr d ev cleared fda spec home use Rakan Hodge PA-C Work Phone: Start: 02-10-2021 Urinalysis CLAUDETTEMALLORY GRAEME CANTU Plan of Treatment Date Care Activity Detail Author Start: 01-18-2025 Urine microalbumin profile [facility] Start: 03-03-2024 ANNUAL PCP TEAM ACCESS SERVICES REPRESENTATIVE RADHA DISEASE VISIT ANNUAL PCP TEAM CHRONIC DISEASE VISIT [facility] Start: 01-17-2024 ANNUAL PCP TEAM ACCESS SERVICES REPRESENTATIVE RADHA DISEASE VISIT ANNUAL PCP TEAM CHRONIC DISEASE VISIT [facility] Start: 03-21-2023 Influenza vaccination [facility] Start: 12-31-2022 ANNUAL PCP TEAM ACCESS SERVICES REPRESENTATIVE RADHA DISEASE VISIT ANNUAL PCP TEAM CHRONIC DISEASE VISIT [facility] Start: 07-21-2022 DEPRESSION ASSESSMENT DEPRESSION ASS ESSMENT [facility] Start: 06-07-2022 ANNUAL PCP TEAM ACCESS SERVICES REPRESENTATIVE RADHA DISEASE VISIT ANNUAL PCP TEAM CHRONIC DISEASE VISIT [facility] Start: 06-07-2022 COVID-19 VACCINE (#1) COVID-19 VACCI NE (#1) [facility] Immunizations Immunization Date Immunization Notes Care Provider Sheree guo 12-08-2019 hepatitis A and hepatitis B vaccine Mateus Chow APRN.HYDROELECTRIC PLANT ELECTRICIAN Work Phone: [facility] Work Phone: 11-18-2019 hepatitis B vaccine, adult dosage Rakan Hodge PA-C Work Phone: [facility] 04-05-2019 hepatitis A and hepatitis B vaccine Mateus Chow APRN.HYDROELECTRIC PLANT ELECTRICIAN Work Phone: [facility] Work Phone: 03-01-2019 hepatitis A and hepatitis B vaccine Mateus Chow APRN.HYDROELECTRIC PLANT ELECTRICIAN Work Phone: [facility] 03-01-2019 measles, mumps, rube lla, and varicella virus vaccine Mateus Chow APRN.HYDROELECTRIC PLANT ELECTRICIAN Work Phone: [facility] 01-09-2018 pneumococcal polysaccharide vaccine, 23 valent Mateus Chow GRANULATING MACHINE OPERATOR.HYDROELECTRIC PLANT ELECTRICIAN Work Phone: [facility] Work Phone: 01-18-2015 meningococcal polysaccharide (groups A, C, Y and W-135) diphtheria toxoid conjugate vaccine (MCV4P) Mateus Chow GRANULATING MACHINE OPERATOR.HYDROELECTRIC PLANT ELECTRICIAN Work Phone: [facility] 01-18-2015 tetanus toxoid, redu ramya diphtheria toxoid, and acellular pertussis vaccine, adsorbed Mateus Chow GRANULATING MACHINE OPERATOR.HYDROELECTRIC PLANT ELECTRICIAN Work Phone: [facility] 06-09-2014 human papilloma viru s vaccine, quadrivalent Mateus Chow GRANULATING MACHINE OPERATOR.HYDROELECTRIC PLANT ELECTRICIAN Work Phone: [facility] 06-09-2014 meningococcal polysaccharide (groups A, C, Y and W-135) diphtheria toxoid conjugate vaccine (MCV4P) Mateus Chow GRANULATING MACHINE OPERATOR.HYDROELECTRIC PLANT ELECTRICIAN Work Phone: [facility] 06-11-2013 human papilloma viru s vaccine, quadrivalent Mateus Chow GRANULATING MACHINE OPERATOR.HYDROELECTRIC PLANT ELECTRICIAN Work Phone: [facility] 04-15-2013 human papilloma viru s vaccine, quadrivalent Mateus Chow GRANULATING MACHINE OPERATOR.HYDROELECTRIC PLANT ELECTRICIAN Work Phone: [facility] Payers Date Payer Category Payer Unknown [id number] 2022 Medicaid [id number] 2022 Medicaid [id number] 2013 Medicaid [employer] [facility] [facility] [id number] 2013-Present [phone] [address] [place] [address] Medicaid [id number] 2013 Unknown [id number] 1998 Unknown [id number] Social History Date Type Detail Facility Start: 12-31-2011 End: 05-02-2022 Tobacco smoking status NHIS Never smoked tobacco [facility] Start: 12-31-2011 End: 05-02-2022 Tobacco use and exposure Smokeless tobacco non-user [facility] Start: 12-26-2021 End: 01-16-2023 Alcohol intake Current non-drinker of alcohol (finding) [facility] Start: 06-07-2021 History SDOH Alcohol Comment Stopped [facility] Start: 11-18-2013 End: 05-02-2022 Tobacco Comment parents inside/outside [facility] Start: 2000 Sex Assigned At Not on file [facility] Start: 12-16-2021 End: 12-31-2021 Exposure to SARS-CoV-2 (event) Not sure [facility] History of tobacco use Passive smoker [facility] Start: 08-02-2022 End: 01-16-2023 History of Social function [facility] Start: 08-02-2022 End: 01-16-2023 Tobacco use panel [facility] Adult Depression Scr eening Assessment 0 [facility] Medical Equipment Procedure Code Equipment Code Equipment Origin al Text Equipment Identifier Dates INSULIN SYRINGE-NEEDLE U-100 [id number] Start: 08-23-2015 End: 07-02-2025 Clinical Notes 07-29-2016 to 04-07-2023 Laney Velez APRN.CNP - 04/07/2023 12:23 PM EDTTelephone Encounter - Laney Ji RN - 03/27/2023 11:04 AM Rakan Muir PA-C - 03/03/2023 10:38 AM EDT Note Date & Type Note Facility 04-07-2023 Note HNO ID: [id number] Author: Laney Velez APRN.HYDROELECTRIC PLANT ELECTRICIAN Service: ? Author Type: Nurse Practitioner Type: Progress Notes Filed: 04/07/2023 12:46 PM Note Text: SUBJECTIVE: Hilda Desir is a 23 year old female. Who presents today with sore throat congestion headache cough for 1 week. She has used albuterol and tylenol sinus. She has had a fever of 101. She has been exposed to family who are sick. She would like covid flu and strep today. HPI PAST MEDICAL HISTORY Diagnosis Date Asthma Constipation 08/07/2016 Diabetes mellitus type 1 (HCC) Hepatitis A 02/15/2019 FAMILY HISTORY Problem Relation Age of Onset Hypertension Mother None Father None Maternal Grandmother None Maternal Grandfather Diabetes Paternal Grandmother Hypertension Paternal Grandfather Asthma Brother Allergies Brother Allergies Sister Allergies Sister Social History Tobacco Use Smoking status: Never Passive exposure: Yes Smokeless tobacco: Never Tobacco comments: parents inside/outside Substance Use Topics Alcohol use: No Comment: Stopped Drug use: Yes Types: Marijuana Comment: Hx of marijuana ALLERGIES Allergen Reactions Melatonin Diarrhea Penicillins Rash Sulfatrim Ds Vomiting Current Outpatient Medications Medication Sig Dispense Refill famotidine (PEPCID) 20 mg tablet Take 20 mg by mouth twice daily. sucralfate (CARAFATE) 1 gram tablet Take 1 g by mouth three times daily. promethazine (PHENERGAN) 25 mg tablet Take 25 mg by mouth three times daily. Take one tablet three times daily as needed DEXCOM G6 SENSOR cooper as directed. DEXCOM G6 TRANSMITTER cooper as directed. fluticasone (FLONASE) 50 mcg/actuation nasal spray Use 2 Sprays in each nostril once daily. Rinse mouth after use. 9.9 mL 0 albuterol HFA (VENTOLIN HFA) 90 mcg/actuation inhaler Inhale 2 Puffs as instructed every 4 hours as needed. 18 g 0 etonogestrel (NEXPLANON) subdermal implant 68 mg ONCE potassium chloride ER (K-DUR, KLOR-CON) 20 mEq tablet Take 20 mEq by mouth twice daily. 0 Alcohol Swabs (ALCOHOL PREP PADS) padm Apply 1 application to affected area every 4 hours as needed (blood glucose check). 300 Each 11 NOVOLOG U-100 INSULIN ASPART 100 unit/mL use up to 100 units VIA INSULIN PUMP ondansetron orally disintegrating (ZOFRAN ODT) 4 mg disintegrating tablet Take 1 tablet by mouth every 6 hours as needed for nausea/vomiting. (Patient not taking: Reported on 10/16/2022) 9 tablet 0 naproxen (NAPROSYN) 500 mg tablet Take 1 tablet by mouth twice daily as needed (for pain/inflammation). Take with food. (Patient not taking: Reported on 10/16/2022) 30 tablet 0 cyclobenzaprine (FLEXERIL) 10 mg tablet Take 1 tablet by mouth three times daily as needed for muscle spasm. (Patient not taking: Reported on 10/16/2022) 15 tablet 0 cyclobenzaprine (FLEXERIL) 10 mg tablet Take 1 tablet by mouth at bedtime as needed for muscle spasm. (Patient not taking: Reported on 12/26/2021 ) 15 tablet 0 traZODone (DESYREL) 50 mg tablet Take 1 tablet by mouth daily at bedtime. (Patient not taking: Reported on 12/31/2021 ) 30 tablet 3 insulin glargine (BASAGLAR KWIKPEN U-100 INSULIN) 100 unit/mL (3 mL) Inject 45 Units subcutaneously daily at bedtime. Per Endo: Dr. Chow (Patient not taking: Reported on 12/31/2021 ) insulin aspart U-100 (NOVOLOG) 100 unit/mL (3 mL) Inject 30 Units subcutaneously three times daily before meals. Per Endo, Dr. Chow (Patient not taking: Reported on 12/26/2021 ) flash glucose sensor (FREESTYLE BRIDGETT 14 DAY SENSOR) kit apply 1 SENSOR TO THE BACK OF UPPER ARM. REMOVE AND REPLACE EVERY 14 DAYS. USE WITH DEVICE TO MONITOR BLOOD SUGAR four times a day (Patient not taking: Reported on 10/16/2022) 2 Kit 5 etonogestrel (NEXPLANON) subdermal implant 68 mg 1 Each by SUBDERMAL route as directed. (Patient not taking: Reported on 07/02/2021 ) 1 Each 0 flash glucose scanning reader (FREESTYLE BRIDGETT 14 DAY READER) [facility] For blood sugar checks 4 times a day (Patient not taking: Reported on 10/16/2022) 1 Each 1 Insulin Dassel, Disposable, (MANISH PEN NEEDLE) 32 gauge x 5/32 ndle Use with insulin injections (Patient not taking: Reported on 12/26/2021 ) 200 Each 11 Insulin Syringe-Needle U-100 (BD ULTRAFINE INSULIN) 1 mL 31 gauge x 5/16 syrg Supply to be used as directed for insulin administration up to 3 times daily. (Patient not taking: Reported on 10/16/2022) 100 Syringe 11 blood sugar diagnostic (FREESTYLE TEST) test strip Use as instructed 10 times daily (Patient not taking: Reported on 12/26/2021 ) 300 Strip 11 glucagon, human recombinant, (GLUCAGON EMERGENCY KIT, HUMAN,) 1 mg injection Inject 1 mg intramuscularly as directed. Use when pt is unconsciousness or having a seizure. (Patient not taking: Reported on 12/26/2021 ) 1 Each 3 Inhalational Spacing Device (AEROCHAMBER MASK LARGE) spcr 1 Device as needed. (Patient not taking: Reported on 12/26/2021 ) 1 Each 0 Insulin Admin Supplies (NO (more content not included)... [facility] 04-07-2023 History of Presen t illness Narrative SUBJECTIVE: Hilda Desir is a 23 year old female. Who presents today with sore throat congestion headache cough for 1 week. She has used albuterol and tylenol sinus. She has had a fever of 101. She has been exposed to family who are sick. She would like covid flu and strep today. HPI PAST MEDICAL HISTORY Diagnosis Date Asthma Constipation 08/07/2016 Diabetes mellitus type 1 (HCC) Hepatitis A 02/15/2019 FAMILY HISTORY Problem Relation Age of Onset Hypertension Mother None Father None Maternal Grandmother None Maternal Grandfather Diabetes Paternal Grandmother Hypertension Paternal Grandfather Asthma Brother Allergies Brother Allergies Sister Allergies Sister Social History Tobacco Use Smoking status: Never Passive exposure: Yes Smokeless tobacco: Never Tobacco comments: parents inside/outside Substance Use Topics Alcohol use: No Comment: Stopped Drug use: Yes Types: Marijuana Comment: Hx of marijuana ALLERGIES Allergen Reactions Melatonin Diarrhea Penicillins Rash Sulfatrim Ds Vomiting Current Outpatient Medications Medication Sig Dispense Refill famotidine (PEPCID) 20 mg tablet Take 20 mg by mouth twice daily. sucralfate (CARAFATE) 1 gram tablet Take 1 g by mouth three times daily. promethazine (PHENERGAN) 25 mg tablet Take 25 mg by mouth three times daily. Take one tablet three times daily as needed DEXCOM G6 SENSOR cooper as directed. DEXCOM G6 TRANSMITTER cooper as directed. fluticasone (FLONASE) 50 mcg/actuation nasal spray Use 2 Sprays in each nostril once daily. Rinse mouth after use. 9.9 mL 0 albuterol HFA (VENTOLIN HFA) 90 mcg/actuation inhaler Inhale 2 Puffs as instructed every 4 hours as needed. 18 g 0 etonogestrel (NEXPLANON) subdermal implant 68 mg ONCE potassium chloride ER (K-DUR, KLOR-CON) 20 mEq tablet Take 20 mEq by mouth twice daily. 0 Alcohol Swabs (ALCOHOL PREP PADS) padm Apply 1 application to affected area every 4 hours as needed (blood glucose check). 300 Each 11 NOVOLOG U-100 INSULIN ASPART 100 unit/mL use up to 100 units VIA INSULIN PUMP ondansetron orally disintegrating (ZOFRAN ODT) 4 mg disintegrating tablet Take 1 tablet by mouth every 6 hours as needed for nausea/vomiting. (Patient not taking: Reported on 10/16/2022) 9 tablet 0 naproxen (NAPROSYN) 500 mg tablet Take 1 tablet by mouth twice daily as needed (for pain/inflammation). Take with food. (Patient not taking: Reported on 10/16/2022) 30 tablet 0 cyclobenzaprine (FLEXERIL) 10 mg tablet Take 1 tablet by mouth three times daily as needed for muscle spasm. (Patient not taking: Reported on 10/16/2022) 15 tablet 0 cyclobenzaprine (FLEXERIL) 10 mg tablet Take 1 tablet by mouth at bedtime as needed for muscle spasm. (Patient not taking: Reported on 12/26/2021 ) 15 tablet 0 traZODone (DESYREL) 50 mg tablet Take 1 tablet by mouth daily at bedtime. (Patient not taking: Reported on 12/31/2021 ) 30 tablet 3 insulin glargine (BASAGLAR KWIKPEN U-100 INSULIN) 100 unit/mL (3 mL) Inject 45 Units subcutaneously daily at bedtime. Per Endo: Dr. Chow (Patient not taking: Reported on 12/31/2021 ) insulin aspart U-100 (NOVOLOG) 100 unit/mL (3 mL) Inject 30 Units subcutaneously three times daily before meals. Per Endo, Dr. Chow (Patient not taking: Reported on 12/26/2021 ) flash glucose sensor (FREESTYLE BRIDGETT 14 DAY SENSOR) kit apply 1 SENSOR TO THE BACK OF UPPER ARM. REMOVE AND REPLACE EVERY 14 DAYS. USE WITH DEVICE TO MONITOR BLOOD SUGAR four times a day (Patient not taking: Reported on 10/16/2022) 2 Kit 5 etonogestrel (NEXPLANON) subdermal implant 68 mg 1 Each by SUBDERMAL route as directed. (Patient not taking: Reported on 07/02/2021 ) 1 Each 0 flash glucose scanning reader (FREESTYLE BRIDGETT 14 DAY READER) [facility] [place] blood sugar checks 4 times a day (Patient not taking: Reported on 10/16/2022) 1 Each 1 Insulin Dassel, Disposable, (MANISH PEN NEEDLE) 32 gauge x 5/32 ndle Use with insulin injections (Patient not taking: Reported on 12/26/2021 ) 200 Each 11 Insulin Syringe-Needle U-100 (BD ULTRAFINE INSULIN) 1 mL 31 gauge x 5/16 syrg Supply to be used as directed for insulin administration up to 3 times daily. (Patient not taking: Reported on 10/16/2022) 100 Syringe 11 blood sugar diagnostic (FREESTYLE TEST) test strip Use as instructed 10 times daily (Patient not taking: Reported on 12/26/2021 ) 300 Strip 11 glucagon, human recombinant, (GLUCAGON EMERGENCY KIT, HUMAN,) 1 mg injection Inject 1 mg intramuscularly as directed. Use when pt is unconsciousness or having a seizure. (Patient not taking: Reported on 12/26/2021 ) 1 Each 3 Inhalational Spacing Device (AEROCHAMBER MASK LARGE) spcr 1 Device as needed. (Patient not taking: Reported on 12/26/2021 ) 1 Each 0 Insulin Admin Supplies (NOVOPEN ECHO) inpn Up to 80 units total daily dose. (Patient not taking: Reported on 12/26/2021 ) 10 Each 11 Insulin Syringe-Needle U-100 (BD INSULIN SYINGE MICROFINE) 0.3 mL 28 syrg Supply to be used as directed. (Patient not taking: Reported on 10/16/2022) 50 Syringe 11 Blood-Glucose Meter (FREESTYLE LITE METER) monitoring kit Supply to be used as directed. (Patient not taking: Reported on 10/16/2022) 2 Each 0 No current facility-administered medications for this visit. OBJECTIVE: BP 112/66 Pulse 112 Temp 37.2 C (98.9 F) Resp 16 Wt 63 kg (139 lb) LMP 09/11/2020 (Exact Date) SpO2 97% BMI 28.07 kg/m ROS: All systems reviewed and are otherwise negative Constitutional: Well developed, well nourished, A&O X3. ENT: Head is atraumatic, airway patent, mucosal membranes moist pink no exudate no MANAGER LOGISTIC yoli TM clear with no signs of infection Neck: full ROM, no meningeal signs Cardiac: heart tones regular rate and rhythm Respiratory: lung CTA : no CVA tenderness MS: moves all extremities, no deformities noted Neuro: GCS 15 no focal deficits Skin: warm and dry with out rash, lesion or ecchymosis Psych: alert appropriate, speech clear Diagnostic testing: COVID/ Influenza A and B testing performed and results will be complete in the next 24-72 hours. The patient will be notified of the results in My Chart. Strep testing MDM: Patient presented to the [facility] today for COVID and Influenza testing. Vital signs were evaluated and found to be within normal limits. Hilda Desir was in no acute distress. Strep testing is negative. We discussed the COVID results will be back in the next 1-2 days. In accordance with the CDC guidelines, Hilda Desir was instructed to quarantine, if indicated, based on symptoms and exposure. We have discussed over the counter medications to use for their symptoms. She has requested a work note and this was given. They will follow-up with their family doctor in the next 2-3 days. If symptoms worsen they will go straight to the emergency department for further evaluation and treatment. They voiced understanding of the plan of care and are in agreement. ASSESSMENT/PLAN: 1. Exposure to SARS-associated coronavirus - ICD9: V01.82, ICD10: Z20.828 (primary diagnosis) - COVID & INFLUENZA A/B & RSV NAAT, ROUTINE - COVID NAAT, UPPER RESPIRATORY, ROUTINE - ROUTINE FLU A/B + RSV 2. 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 Faxed to # [phone]. documented in this encounter [facility] 03-03-2023 Note HNO ID: [id number] Author: Rakan Hodge PA-C Service: ? Author Type: Physician Guitar Repairer Type: Progress Notes Filed: 03/03/2023 11:30 AM Note Text: Chief Complaint Patient presents with: ER F/U HPI Hilda Desir is a 22 year old female who presents here today for ER Follow Up.. Patient was in hospital on 02/15 due to DKA. Was discharged home on 02/17. Hasn't follow up with endo yet. She went back into ER on 03/01/23-03/02/23 due to n/v and GERD symptoms. She was told she wasn't in DKA and sent home with treatment for GERD however patient has not been able to pick meds up yet. She states she is feeling about the same. Very fatigued. Lightheaded. Nausea. Repeats Glucose has still been elevated. She is not eating much. Struggling with fluids also. Past medical history, appointments, medications, allergies reviewed. Previous Medical History PAST MEDICAL HISTORY Diagnosis Date Asthma Constipation 08/07/2016 Diabetes mellitus type 1 (HCC) Hepatitis A 02/15/2019 Previous Surgical History PAST SURGICAL HISTORY Procedure Laterality Date ADENOIDECTOMY PRIMARY age 18 month MYRINGOTOMY W TUBE,BILATERAL(2) age 18 months NEXPLANON INSERTION 07/06/2014 Family History FAMILY HISTORY Problem Relation Age of Onset Hypertension Mother None Father None Maternal Grandmother None Maternal Grandfather Diabetes Paternal Grandmother Hypertension Paternal Grandfather Asthma Brother Allergies Brother Allergies Sister Allergies Sister Patient Allergies ALLERGIES Allergen Reactions Melatonin Diarrhea Penicillins Rash Sulfatrim Ds Vomiting Current Medications Current Outpatient Medications on File Prior to Visit Medication Sig DEXCOM G6 SENSOR cooper as directed. DEXCOM G6 TRANSMITTER cooper as directed. fluticasone (FLONASE) 50 mcg/actuation nasal spray Use 2 Sprays in each nostril once daily. Rinse mouth after use. albuterol HFA (VENTOLIN HFA) 90 mcg/actuation inhaler Inhale 2 Puffs as instructed every 4 hours as needed. etonogestrel (NEXPLANON) subdermal implant 68 mg ONCE potassium chloride ER (K-DUR, KLOR-CON) 20 mEq tablet Take 20 mEq by mouth twice daily. Alcohol Swabs (ALCOHOL PREP PADS) padm Apply 1 application to affected area every 4 hours as needed (blood glucose check). NOVOLOG U-100 INSULIN ASPART 100 unit/mL use up to 100 units VIA INSULIN PUMP ondansetron orally disintegrating (ZOFRAN ODT) 4 mg disintegrating tablet Take 1 tablet by mouth every 6 hours as needed for nausea/vomiting. (Patient not taking: Reported on 10/16/2022) naproxen (NAPROSYN) 500 mg tablet Take 1 tablet by mouth twice daily as needed (for pain/inflammation). Take with food. (Patient not taking: Reported on 10/16/2022) cyclobenzaprine (FLEXERIL) 10 mg tablet Take 1 tablet by mouth three times daily as needed for muscle spasm. (Patient not taking: Reported on 10/16/2022) cyclobenzaprine (FLEXERIL) 10 mg tablet Take 1 tablet by mouth at bedtime as needed for muscle spasm. (Patient not taking: Reported on 12/26/2021 ) traZODone (DESYREL) 50 mg tablet Take 1 tablet by mouth daily at bedtime. (Patient not taking: Reported on 12/31/2021 ) insulin glargine (BASAGLAR KWIKPEN U-100 INSULIN) 100 unit/mL (3 mL) Inject 45 Units subcutaneously daily at bedtime. Per Endo: Dr. Chow (Patient not taking: Reported on 12/31/2021 ) insulin aspart U-100 (NOVOLOG) 100 unit/mL (3 mL) Inject 30 Units subcutaneously three times daily before meals. Per Endo, Dr. Chow (Patient not taking: Reported on 12/26/2021 ) flash glucose sensor (FREESTYLE BRIDGETT 14 DAY SENSOR) kit apply 1 SENSOR TO THE BACK OF UPPER ARM. REMOVE AND REPLACE EVERY 14 DAYS. USE WITH DEVICE TO MONITOR BLOOD SUGAR four times a day (Patient not taking: Reported on 10/16/2022) etonogestrel (NEXPLANON) subdermal implant 68 mg 1 Each by SUBDERMAL route as directed. (Patient not taking: Reported on 07/02/2021 ) flash glucose scanning reader (FREESTYLE BRIDGETT 14 DAY READER) [facility] [place] For blood sugar checks 4 times a day (Patient not taking: Reported on 10/16/2022) Insulin Dassel, Disposable, (MANISH PEN NEEDLE) 32 gauge x 5/32 ndle Use with insulin injections (Patient not taking: Reported on 12/26/2021 ) Insulin Syringe-Needle U-100 (BD ULTRAFINE INSULIN) 1 mL 31 gauge x 5/16 syrg Supply to be used as directed for insulin administration up to 3 times daily. (Patient not taking: Reported on 10/16/2022) blood sugar diagnostic (FREESTYLE TEST) test strip Use as instructed 10 times daily (Patient not taking: Reported on 12/26/2021 ) glucagon, human recombinant, (GLUCAGON EMERGENCY KIT, HUMAN,) 1 mg injection Inject 1 mg intramuscularly as directed. Use when pt is unconsciousness or having a seizure. (Patient not taking: Reported on 12/26/2021 ) Inhalational Spacing Device (AEROCHAMBER MASK LARGE) spcr 1 Device as needed. (Patient not taking: Reported on 12/26/2021 ) Insulin Admin Supplies (NOVOPEN ECHO) i (more content not included)... [facility] 03-03-2023 History of Presen t illness Narrative Chief Complaint Patient presents with: ER F/U HPI Hilda Desir is a 22 year old female who presents here today for ER Follow Up.. Patient was in hospital on 02/15 due to DKA. Was discharged home on 02/17. Hasn't follow up with endo yet. She went back into ER on 03/01/23-03/02/23 due to n/v and GERD symptoms. She was told she wasn't in DKA and sent home with treatment for GERD however patient has not been able to pick meds up yet. She states she is feeling about the same. Very fatigued. Lightheaded. Nausea. Repeats Glucose has still been elevated. She is not eating much. Struggling with fluids also. Past medical history, appointments, medications, allergies reviewed. Previous Medical History PAST MEDICAL HISTORY Diagnosis Date Asthma Constipation 08/07/2016 Diabetes mellitus type 1 (HCC) Hepatitis A 02/15/2019 Previous Surgical History PAST SURGICAL HISTORY Procedure Laterality Date ADENOIDECTOMY PRIMARY <AGE 12 age 18 month MYRINGOTOMY W TUBE,BILATERAL(2) age 18 months NEXPLANON INSERTION 07/06/2014 Family History FAMILY HISTORY Problem Relation Age of Onset Hypertension Mother None Father None Maternal Grandmother None Maternal Grandfather Diabetes Paternal Grandmother Hypertension Paternal Grandfather Asthma Brother Allergies Brother Allergies Sister Allergies Sister Patient Allergies ALLERGIES Allergen Reactions Melatonin Diarrhea Penicillins Rash Sulfatrim Ds Vomiting Current Medications Current Outpatient Medications on File Prior to Visit Medication Sig DEXCOM G6 SENSOR cooper as directed. DEXCOM G6 TRANSMITTER cooper as directed. fluticasone (FLONASE) 50 mcg/actuation nasal spray Use 2 Sprays in each nostril once daily. Rinse mouth after use. albuterol HFA (VENTOLIN HFA) 90 mcg/actuation inhaler Inhale 2 Puffs as instructed every 4 hours as needed. etonogestrel (NEXPLANON) subdermal implant 68 mg ONCE potassium chloride ER (K-DUR, KLOR-CON) 20 mEq tablet Take 20 mEq by mouth twice daily. Alcohol Swabs (ALCOHOL PREP PADS) padm Apply 1 application to affected area every 4 hours as needed (blood glucose check). NOVOLOG U-100 INSULIN ASPART 100 unit/mL use up to 100 units VIA INSULIN PUMP ondansetron orally disintegrating (ZOFRAN ODT) 4 mg disintegrating tablet Take 1 tablet by mouth every 6 hours as needed for nausea/vomiting. (Patient not taking: Reported on 10/16/2022) naproxen (NAPROSYN) 500 mg tablet Take 1 tablet by mouth twice daily as needed (for pain/inflammation). Take with food. (Patient not taking: Reported on 10/16/2022) cyclobenzaprine (FLEXERIL) 10 mg tablet Take 1 tablet by mouth three times daily as needed for muscle spasm. (Patient not taking: Reported on 10/16/2022) cyclobenzaprine (FLEXERIL) 10 mg tablet Take 1 tablet by mouth at bedtime as needed for muscle spasm. (Patient not taking: Reported on 12/26/2021 ) traZODone (DESYREL) 50 mg tablet Take 1 tablet by mouth daily at bedtime. (Patient not taking: Reported on 12/31/2021 ) insulin glargine (BASAGLAR KWIKPEN U-100 INSULIN) 100 unit/mL (3 mL) Inject 45 Units subcutaneously daily at bedtime. Per Endo: Dr. Chow (Patient not taking: Reported on 12/31/2021 ) insulin aspart U-100 (NOVOLOG) 100 unit/mL (3 mL) Inject 30 Units subcutaneously three times daily before meals. Per EndoDr. Chow (Patient not taking: Reported on 12/26/2021 ) flash glucose sensor (FREESTYLE BRIDGETT 14 DAY SENSOR) kit apply 1 SENSOR TO THE BACK OF UPPER ARM. REMOVE AND REPLACE EVERY 14 DAYS. USE WITH DEVICE TO MONITOR BLOOD SUGAR four times a day (Patient not taking: Reported on 10/16/2022) etonogestrel (NEXPLANON) subdermal implant 68 mg 1 Each by SUBDERMAL route as directed. (Patient not taking: Reported on 07/02/2021 ) flash glucose scanning reader (FREESTYLE BRIDGETT 14 DAY READER) [facility] [place] For blood sugar checks 4 times a day (Patient not taking: Reported on 10/16/2022) Insulin Dassel, Disposable, (MANISH PEN NEEDLE) 32 gauge x 5/32 ndle Use with insulin injections (Patient not taking: Reported on 12/26/2021 ) Insulin Syringe-Needle U-100 (BD ULTRAFINE INSULIN) 1 mL 31 gauge x 5/16 syrg Supply to be used as directed for insulin administration up to 3 times daily. (Patient not taking: Reported on 10/16/2022) blood sugar diagnostic (FREESTYLE TEST) test strip Use as instructed 10 times daily (Patient not taking: Reported on 12/26/2021 ) glucagon, human recombinant, (GLUCAGON EMERGENCY KIT, HUMAN,) 1 mg injection Inject 1 mg intramuscularly as directed. Use when pt is unconsciousness or having a seizure. (Patient not taking: Reported on 12/26/2021 ) Inhalational Spacing Device (AEROCHAMBER MASK LARGE) spcr 1 Device as needed. (Patient not taking: Reported on 12/26/2021 ) Insulin Admin Supplies (NOVOPEN ECHO) inpn Up to 80 units total daily dose. (Patient not taking: Reported on 12/26/2021 ) Insulin Syringe-Needle U-100 (BD INSULIN SYINGE MICROFINE) 0.3 mL 28 syrg Supply to be used as directed. (Patient not taking: Reported on 10/16/2022) Blood-Glucose Meter (FREESTYLE LITE METER) monitoring kit Supply to be used as directed. (Patient not taking: Reported on 10/16/2022) No current facility-administered medications on file prior to visit. Social History Social History Tobacco Use Smoking status: Never Passive exposure: Yes Smokeless tobacco: Never Tobacco comments: parents inside/outside Substance Use Topics Alcohol use: No Comment: Stopped Drug use: Yes Types: Marijuana Comment: Hx of marijuana Review of Symptoms REVIEW OF SYSTEMS As above EXAM: BP 130/70 (BP Site: Left Arm, BP Position: Sitting, BP Cuff Size: Large Adult) Pulse (!) 134 Temp 37.1 C (98.7 F) LMP 09/11/2020 (Exact Date) General Appearance: Well appearing, alert, in no acute distress, well-hydrated, well nourished.. Lungs: Lungs clear to auscultation. No wheezing, rhonchi, rales.. Heart: tachycardic. No murmurs. No abnormal rhythm.. Abdomen: tenderness throughout. . Health Maintenance List COVID-19 VACCINE(1) Never done URINE ALBUMIN:CREATININE RATIO Never done DILATED RETINAL EXAM Never done DIABETIC FOOT EXAM Never done MENINGOCOCCAL B: Consider based on risk(1 of 2 - Patient Seeks Protection) Never done LDL CHOLESTEROL due on 2016 SPIROMETRY Never done HIV SCREENING Never done PNEUMOCOCCAL(2 - PCV) due on 01/09/2019 PAP TESTING Never done HBA1C due on 11/01/2020 DEPRESSION ASSESSMENT Never done INFLUENZA(1) due on 03/21/2023 ANNUAL PCP TEAM CHRONIC DISEASE VISIT due on 01/17/2024 DTAP,TDAP,TD(2 - Td or Tdap) due on 01/18/2025 HEPATITIS B Completed HPV VACCINE Completed HEPATITIS C SCREENING Completed Data reviewed ASSESSMENT/PLAN: 1. Type 1 diabetes mellitus without complication (HCC) - ICD9: 250.01, ICD10: E10.9 (primary diagnosis) - Uncontrolled Patient needs follow up with endo - GLUCOSE, BLOOD (POC) - UA DIP, URINE (POC) 2. Nausea - ICD9: 787.02, ICD10: R11.0 Concern for DKA. Glucose is elevated with positive urine ketones and sugars. Given tachycardia and risk for DKA, will send patient back to ER. Patient did not have a ride to take her so squad was called and ER was notified. Rakan Hodge PA-C documented in this encounter [facility] 01-23-2023 Note HNO ID: [id number] Author: Kaylen Craft [facility] Service: ? Author Type: Therapist Type: Progress Notes Filed: 01/23/2023 8:28 AM Note Text: Behavioral Health Social Work Progress Note Patient identified for [facility] from: PCP Reason for referral: Resources Behavioral Health Resources: Psychology - talk therapy [facility] encounter type: MyChart Message Attempts to Outreach: 3 attempts Referral made: Psychiatry - Internal, Psychiatry - External Psychiatry-Internal referral type: Medication Management Psychiatry-External referral type: Medication Management Reason for external referral: Wait times at [facility] too long, Patient choice Final Disposition: Resources given Patient Discharged?: Yes Patient reported that caregiver was able to meet their needs today?: N/A therapist sent patient [employer] follow up message offering assistance with linkage to behavioral health services. Kaylen Craft [facility] January 23, 2023 [facility] 01-16-2023 Note HNO ID: [id number] Author: Rakan Hodge PA-C Service: ? Author Type: Physician Guitar Repairer Type: Progress Notes Filed: 01/16/2023 9:03 AM Note Text: Chief Complaint Patient presents with: Psychiatric Problem: Patient thinks she may be bipolar HPI Hilda Desir is a 22 year old female who presents here today for Above Complaints.. Patient questions if she is bipolar and parents have ADHD and suggested that she might have it. States she was told as a kid it was suggested to have her evaluated by psychiatry but grandmother did not feel it was necessary. She states that she has episodes of highs and lows. Can be within the same day but also periods that may last days-weeks. Has made some poor decisions. Recently broke up with her fiance of 6 years to start an affair with a man which now she realizes was very wrong for her to do. She also states that she has made poor purchasing decisions. She recently bought a [employer] after getting a job and then lost the job shortly later leaving her in significant debt and now has poor credit. She thinks her mom may have bipolar disorder, however undiagnosed and not treated. Patient admits to self medicating with marijuana especially to help with sleep. She states she tries not to smoke during the day. She is working with endocrine on her diabetes as she did not take care of her diabetes well in the past. Has had multiple ER visits due to DKA. Past medical history, appointments, medications, allergies reviewed. Previous Medical History PAST MEDICAL HISTORY Diagnosis Date Asthma Constipation 08/07/2016 Diabetes mellitus type 1 (HCC) Hepatitis A 02/15/2019 Previous Surgical History PAST SURGICAL HISTORY Procedure Laterality Date ADENOIDECTOMY PRIMARY age 18 month MYRINGOTOMY W TUBE,BILATERAL(2) age 18 months NEXPLANON INSERTION 07/06/2014 Family History FAMILY HISTORY Problem Relation Age of Onset Hypertension Mother None Father None Maternal Grandmother None Maternal Grandfather Diabetes Paternal Grandmother Hypertension Paternal Grandfather Asthma Brother Allergies Brother Allergies Sister Allergies Sister Patient Allergies ALLERGIES Allergen Reactions Melatonin Diarrhea Penicillins Rash Sulfatrim Ds Vomiting Current Medications Current Outpatient Medications on File Prior to Visit Medication Sig DEXCOM G6 SENSOR cooper as directed. DEXCOM G6 TRANSMITTER cooper as directed. NOVOLOG U-100 INSULIN ASPART 100 unit/mL use up to 100 units VIA INSULIN PUMP fluticasone (FLONASE) 50 mcg/actuation nasal spray Use 2 Sprays in each nostril once daily. Rinse mouth after use. albuterol HFA (VENTOLIN HFA) 90 mcg/actuation inhaler Inhale 2 Puffs as instructed every 4 hours as needed. etonogestrel (NEXPLANON) subdermal implant 68 mg ONCE potassium chloride ER (K-DUR, KLOR-CON) 20 mEq tablet Take 20 mEq by mouth twice daily. Alcohol Swabs (ALCOHOL PREP PADS) padm Apply 1 application to affected area every 4 hours as needed (blood glucose check). ondansetron orally disintegrating (ZOFRAN ODT) 4 mg disintegrating tablet Take 1 tablet by mouth every 6 hours as needed for nausea/vomiting. (Patient not taking: Reported on 10/16/2022) naproxen (NAPROSYN) 500 mg tablet Take 1 tablet by mouth twice daily as needed (for pain/inflammation). Take with food. (Patient not taking: Reported on 10/16/2022) cyclobenzaprine (FLEXERIL) 10 mg tablet Take 1 tablet by mouth three times daily as needed for muscle spasm. (Patient not taking: Reported on 10/16/2022) cyclobenzaprine (FLEXERIL) 10 mg tablet Take 1 tablet by mouth at bedtime as needed for muscle spasm. (Patient not taking: Reported on 12/26/2021 ) traZODone (DESYREL) 50 mg tablet Take 1 tablet by mouth daily at bedtime. (Patient not taking: Reported on 12/31/2021 ) insulin glargine (BASAGLAR KWIKPEN U-100 INSULIN) 100 unit/mL (3 mL) Inject 45 Units subcutaneously daily at bedtime. Per Endo: Dr. Chow (Patient not taking: Reported on 12/31/2021 ) insulin aspart U-100 (NOVOLOG) 100 unit/mL (3 mL) Inject 30 Units subcutaneously three times daily before meals. Per Endo, Dr. Chow (Patient not taking: Reported on 12/26/2021 ) flash glucose sensor (FREESTYLE BRIDGETT 14 DAY SENSOR) kit apply 1 SENSOR TO THE BACK OF UPPER ARM. REMOVE AND REPLACE EVERY 14 DAYS. USE WITH DEVICE TO MONITOR BLOOD SUGAR four times a day (Patient not taking: Reported on 10/16/2022) etonogestrel (NEXPLANON) subdermal implant 68 mg 1 Each by SUBDERMAL route as directed. (Patient not taking: Reported on 07/02/2021 ) flash glucose scanning reader (FREESTYLE BRIDGETT 14 DAY READER) [facility] [place] For blood sugar checks 4 times a day (Patient not taking: Reported on 10/16/2022) Insulin Dassel, Disposable, (MANISH PEN NEEDLE) 32 gauge x 5/32 ndle Use with insulin injections (Patient not taking: Reported on 12/26/2021 ) Insulin Syringe-Needle U-100 (BD ULTRAFINE INSULIN) 1 mL 31 (more content not included)... [facility] 01-16-2023 Miscellaneous Notes Behavioral Health Social Work Progress Note Patient identified for [facility] from: PCP Reason for referral: Resources Behavioral Health Resources: Psychiatry med management [facility] encounter type: Telephone Encounter Attempts to Outreach: 1 attempt Referral made: Psychiatry - Internal, Psychiatry - External Psychiatry-Internal referral type: Medication Management Psychiatry-External referral type: Medication Management Patient reported that caregiver was able to meet their needs today?: N/A Phone call placed today that went to [employer]. Left my contact information and brief nature of call. Initial outreach also completed via [employer] sending list of in network providers with insurance. NISSA Berg-S January 16, 2023 documented in this encounter [facility] 01-16-2023 History of Presen t illness Narrative Chief Complaint Patient presents with: Psychiatric Problem: Patient thinks she may be bipolar HPI Hilda Desir is a 22 year old female who presents here today for Above Complaints.. Patient questions if she is bipolar and parents have ADHD and suggested that she might have it. States she was told as a kid it was suggested to have her evaluated by psychiatry but grandmother did not feel it was necessary. She states that she has episodes of highs and lows. Can be within the same day but also periods that may last days-weeks. Has made some poor decisions. Recently broke up with her fiance of 6 years to start an affair with a man which now she realizes was very wrong for her to do. She also states that she has made poor purchasing decisions. She recently bought a [employer] after getting a job and then lost the job shortly later leaving her in significant debt and now has poor credit. She thinks her mom may have bipolar disorder, however undiagnosed and not treated. Patient admits to self medicating with marijuana especially to help with sleep. She states she tries not to smoke during the day. She is working with endocrine on her diabetes as she did not take care of her diabetes well in the past. Has had multiple ER visits due to DKA. Past medical history, appointments, medications, allergies reviewed. Previous Medical History PAST MEDICAL HISTORY Diagnosis Date Asthma Constipation 08/07/2016 Diabetes mellitus type 1 (HCC) Hepatitis A 02/15/2019 Previous Surgical History PAST SURGICAL HISTORY Procedure Laterality Date ADENOIDECTOMY PRIMARY <AGE 10 age 18 month MYRINGOTOMY W TUBE,BILATERAL(2) age 18 months NEXPLANON INSERTION 07/06/2014 Family History FAMILY HISTORY Problem Relation Age of Onset Hypertension Mother None Father None Maternal Grandmother None Maternal Grandfather Diabetes Paternal Grandmother Hypertension Paternal Grandfather Asthma Brother Allergies Brother Allergies Sister Allergies Sister Patient Allergies ALLERGIES Allergen Reactions Melatonin Diarrhea Penicillins Rash Sulfatrim Ds Vomiting Current Medications Current Outpatient Medications on File Prior to Visit Medication Sig DEXCOM G6 SENSOR cooper as directed. DEXCOM G6 TRANSMITTER cooper as directed. NOVOLOG U-100 INSULIN ASPART 100 unit/mL use up to 100 units VIA INSULIN PUMP fluticasone (FLONASE) 50 mcg/actuation nasal spray Use 2 Sprays in each nostril once daily. Rinse mouth after use. albuterol HFA (VENTOLIN HFA) 90 mcg/actuation inhaler Inhale 2 Puffs as instructed every 4 hours as needed. etonogestrel (NEXPLANON) subdermal implant 68 mg ONCE potassium chloride ER (K-DUR, KLOR-CON) 20 mEq tablet Take 20 mEq by mouth twice daily. Alcohol Swabs (ALCOHOL PREP PADS) padm Apply 1 application to affected area every 4 hours as needed (blood glucose check). ondansetron orally disintegrating (ZOFRAN ODT) 4 mg disintegrating tablet Take 1 tablet by mouth every 6 hours as needed for nausea/vomiting. (Patient not taking: Reported on 10/16/2022) naproxen (NAPROSYN) 500 mg tablet Take 1 tablet by mouth twice daily as needed (for pain/inflammation). Take with food. (Patient not taking: Reported on 10/16/2022) cyclobenzaprine (FLEXERIL) 10 mg tablet Take 1 tablet by mouth three times daily as needed for muscle spasm. (Patient not taking: Reported on 10/16/2022) cyclobenzaprine (FLEXERIL) 10 mg tablet Take 1 tablet by mouth at bedtime as needed for muscle spasm. (Patient not taking: Reported on 12/26/2021 ) traZODone (DESYREL) 50 mg tablet Take 1 tablet by mouth daily at bedtime. (Patient not taking: Reported on 12/31/2021 ) insulin glargine (BASAGLAR KWIKPEN U-100 INSULIN) 100 unit/mL (3 mL) Inject 45 Units subcutaneously daily at bedtime. Per Endo: Dr. Chow (Patient not taking: Reported on 12/31/2021 ) insulin aspart U-100 (NOVOLOG) 100 unit/mL (3 mL) Inject 30 Units subcutaneously three times daily before meals. Per EndoDr. Chow (Patient not taking: Reported on 12/26/2021 ) flash glucose sensor (FREESTYLE BRIDGETT 14 DAY SENSOR) kit apply 1 SENSOR TO THE BACK OF UPPER ARM. REMOVE AND REPLACE EVERY 14 DAYS. USE WITH DEVICE TO MONITOR BLOOD SUGAR four times a day (Patient not taking: Reported on 10/16/2022) etonogestrel (NEXPLANON) subdermal implant 68 mg 1 Each by SUBDERMAL route as directed. (Patient not taking: Reported on 07/02/2021 ) flash glucose scanning reader (FREESTYLE BRIDGETT 14 DAY READER) [facility] For blood sugar checks 4 times a day (Patient not taking: Reported on 10/16/2022) Insulin Dassel, Disposable, (MANISH PEN NEEDLE) 32 gauge x 5/32 ndle Use with insulin injections (Patient not taking: Reported on 12/26/2021 ) Insulin Syringe-Needle U-100 (BD ULTRAFINE INSULIN) 1 mL 31 gauge x 5/16 syrg Supply to be used as directed for insulin administration up to 3 times daily. (Patient not taking: Reported on 10/16/2022) blood sugar diagnostic (FREESTYLE TEST) test strip Use as instructed 10 times daily (Patient not taking: Reported on 12/26/2021 ) glucagon, human recombinant, (GLUCAGON EMERGENCY KIT, HUMAN,) 1 mg injection Inject 1 mg intramuscularly as directed. Use when pt is unconsciousness or having a seizure. (Patient not taking: Reported on 12/26/2021 ) Inhalational Spacing Device (AEROCHAMBER MASK LARGE) spcr 1 Device as needed. (Patient not taking: Reported on 12/26/2021 ) Insulin Admin Supplies (NOVOPEN ECHO) inpn Up to 80 units total daily dose. (Patient not taking: Reported on 12/26/2021 ) Insulin Syringe-Needle U-100 (BD INSULIN SYINGE MICROFINE) 0.3 mL 28 syrg Supply to be used as directed. (Patient not taking: Reported on 10/16/2022) Blood-Glucose Meter (FREESTYLE LITE METER) monitoring kit Supply to be used as directed. (Patient not taking: Reported on 10/16/2022) No current facility-administered medications on file prior to visit. Social History Social History Tobacco Use Smoking status: Never Passive exposure: Yes Smokeless tobacco: Never Tobacco comments: parents inside/outside Substance Use Topics Alcohol use: No Comment: Stopped Drug use: Yes Types: Marijuana Comment: Hx of marijuana Review of Symptoms REVIEW OF SYSTEMS See hpi EXAM: BP 130/80 (BP Site: Right Arm, BP Position: Sitting, BP Cuff Size: Large Adult) Pulse 94 Temp 36.7 C (98.1 F) Resp 16 Wt 63.5 kg (140 lb) LMP 09/11/2020 (Exact Date) BMI 28.28 kg/m General Appearance: Well appearing, alert, in no acute distress, well-hydrated, well nourished.. Health Maintenance List COVID-19 VACCINE(1) Never done URINE ALBUMIN:CREATININE RATIO Never done DILATED RETINAL EXAM Never done DIABETIC FOOT EXAM Never done MENINGOCOCCAL B: Consider based on risk(1 of 2 - Risk Bexsero 2-dose series) Never done LDL CHOLESTEROL due on 2016 SPIROMETRY Never done HIV SCREENING Never done PNEUMOCOCCAL(2 - PCV) due on 01/09/2019 PAP TESTING Never done HBA1C due on 11/01/2020 DEPRESSION ASSESSMENT Never done ANNUAL PCP TEAM CHRONIC DISEASE VISIT due on 12/31/2022 INFLUENZA(Season Ended) due on 03/21/2023 DTAP,TDAP,TD(2 - Td or Tdap) due on 01/18/2025 HEPATITIS B Completed HPV VACCINE Completed HEPATITIS C SCREENING Completed Data reviewed ASSESSMENT/PLAN: 1. Depression, unspecified depression type - ICD9: 311, ICD10: F32.A (primary diagnosis) See below - CONSULT TO [facility] 2. Bipolar affective disorder, remission status unspecified (HCC) - ICD9: 296.80, ICD10: F31.9 See below. Patient does have s/s of probable bipolar disorder. I would like to get patient in with psychiatry for further testing/eval and management. Patient is currently very motivated to get help as she has started to realize how it is negatively affecting her life. We have given her the number to call to set up visit with [facility] and I have place a consult to [facility] to help bridge the gap. I advised patient that in near future she needs to return for PE and routine care. Okay to wait until psych health is being addressed appropriately. Rakan Hodge PA-C I spent a total of 38 minutes on the date of the service which included preparing to see the patient, [id number] patient care, completing clinical documentation, obtaining and/or reviewing separately obtained history, performing a medically appropriate examination, counseling and educating the patient/family/caregiver, ordering medications, tests, or procedures, and communicating results to the patient/family/caregiver. documented in this encounter [facility] 01-07-2023 Miscellaneous Notes Spoke with pt. She states she accidentally sent request to wrong provider and did get this refilled. 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 If she stopped seeing endo then she needs to get back in with them since I do not manage type 1 diabetics. Also she told someone back on 12/26/2021 that she was no longer taking it. Last office visit: 12/31/21 F/u scheduled: 01/16/23 Soo Callaway Ma documented in this encounter [facility] 10-16-2022 Note HNO ID: [id number] Author: Kaitlin Baeza APRN.[employer] Service: ? Author Type: Nurse Practitioner Type: Progress Notes Filed: 10/16/2022 3:51 PM Note Text: Subjective HPI Indira presents today with four day hx of sinus pressure,nasal congestion and a fever of 102 last evening. She states she feel like both ears are going to explode. Her symptoms seem much worse today. She is eating and drinking, and has no sick contacts She states NO chance of PAST MEDICAL HISTORY Diagnosis Date Asthma Constipation 08/07/2016 Diabetes mellitus type 1 (HCC) Hepatitis A 02/15/2019 PAST SURGICAL HISTORY Procedure Laterality Date ADENOIDECTOMY PRIMARY age 18 month MYRINGOTOMY W TUBE,BILATERAL(2) age 18 months NEXPLANON INSERTION 07/06/2014 ALLERGIES Melatonin, Penicillins, and Sulfatrim Ds MEDICATIONS DEXCOM G6 SENSOR cooper as directed. DEXCOM G6 TRANSMITTER cooper as directed. NOVOLOG U-100 INSULIN ASPART 100 unit/mL use up to 100 units VIA INSULIN PUMP albuterol HFA (VENTOLIN HFA) 90 mcg/actuation inhaler Inhale 2 Puffs as instructed every 4 hours as needed. etonogestrel (NEXPLANON) subdermal implant 68 mg ONCE potassium chloride ER (K-DUR, KLOR-CON) 20 mEq tablet Take 20 mEq by mouth twice daily. Alcohol Swabs (ALCOHOL PREP PADS) padm Apply 1 application to affected area every 4 hours as needed (blood glucose check). doxycycline (VIBRA-TABS) 100 mg tablet Take 1 tablet by mouth twice daily for 10 days. ondansetron orally disintegrating (ZOFRAN ODT) 4 mg disintegrating tablet Take 1 tablet by mouth every 6 hours as needed for nausea/vomiting. (Patient not taking: Reported on 10/16/2022) naproxen (NAPROSYN) 500 mg tablet Take 1 tablet by mouth twice daily as needed (for pain/inflammation). Take with food. (Patient not taking: Reported on 10/16/2022) cyclobenzaprine (FLEXERIL) 10 mg tablet Take 1 tablet by mouth three times daily as needed for muscle spasm. (Patient not taking: Reported on 10/16/2022) cyclobenzaprine (FLEXERIL) 10 mg tablet Take 1 tablet by mouth at bedtime as needed for muscle spasm. (Patient not taking: Reported on 12/26/2021 ) traZODone (DESYREL) 50 mg tablet Take 1 tablet by mouth daily at bedtime. (Patient not taking: Reported on 12/31/2021 ) insulin glargine (BASAGLAR KWIKPEN U-100 INSULIN) 100 unit/mL (3 mL) Inject 45 Units subcutaneously daily at bedtime. Per Endo: Dr. Chow (Patient not taking: Reported on 12/31/2021 ) insulin aspart U-100 (NOVOLOG) 100 unit/mL (3 mL) Inject 30 Units subcutaneously three times daily before meals. Per Endo, Dr. Chow (Patient not taking: Reported on 12/26/2021 ) flash glucose sensor (FREESTYLE BRIDGETT 14 DAY SENSOR) kit apply 1 SENSOR TO THE BACK OF UPPER ARM. REMOVE AND REPLACE EVERY 14 DAYS. USE WITH DEVICE TO MONITOR BLOOD SUGAR four times a day (Patient not taking: Reported on 10/16/2022) etonogestrel (NEXPLANON) subdermal implant 68 mg 1 Each by SUBDERMAL route as directed. (Patient not taking: Reported on 07/02/2021 ) flash glucose scanning reader (FREESTYLE BRIDGETT 14 DAY READER) [facility] For blood sugar checks 4 times a day (Patient not taking: Reported on 10/16/2022) Insulin Dassel, Disposable, (MANISH PEN NEEDLE) 32 gauge x 5/32 ndle Use with insulin injections (Patient not taking: Reported on 12/26/2021 ) Insulin Syringe-Needle U-100 (BD ULTRAFINE INSULIN) 1 mL 31 gauge x 5/16 syrg Supply to be used as directed for insulin administration up to 3 times daily. (Patient not taking: Reported on 10/16/2022) blood sugar diagnostic (FREESTYLE TEST) test strip Use as instructed 10 times daily (Patient not taking: Reported on 12/26/2021 ) glucagon, human recombinant, (GLUCAGON EMERGENCY KIT, HUMAN,) 1 mg injection Inject 1 mg intramuscularly as directed. Use when pt is unconsciousness or having a seizure. (Patient not taking: Reported on 12/26/2021 ) Inhalational Spacing Device (AEROCHAMBER MASK LARGE) spcr 1 Device as needed. (Patient not taking: Reported on 12/26/2021 ) Insulin Admin Supplies (NOVOPEN ECHO) inpn Up to 80 units total daily dose. (Patient not taking: Reported on 12/26/2021 ) Insulin Syringe-Needle U-100 (BD INSULIN SYINGE MICROFINE) 0.3 mL 28 syrg Supply to be used as directed. (Patient not taking: Reported on 10/16/2022) Blood-Glucose Meter (FREESTYLE LITE METER) monitoring kit Supply to be used as directed. (Patient not taking: Reported on 10/16/2022) FAMILY HISTORY Problem Relation Age of Onset Hypertension Mother None Father None Maternal Grandmother None Maternal Grandfather Diabetes Paternal Grandmother Hypertension Paternal Grandfather Asthma Brother Allergies Brother Allergies Sister Allergies Sister Social History Tobacco Use Smoking status: Never Passive exposure: Yes Smokeless tobacco: Never Tobacco comments: parents inside/outside Substance Use Topics Alcohol use: No Comment: Stopped Drug use: Yes Types: Marijuana Comment: Hx of m (more content not included)... [facility] 05-02-2022 Influenza virus A and B RNA and SARS-CoV-2 (COVID-19) N gene panel JEANNETTE+probe (Resp) COVID 19 RESULT: SARS-CoV-2 (Agent of COVID-19) Not Detected by RT-PCR or equivalent method. tsering [id number] (RODRIGUEZ)_EUA This test was developed and its performance characteristics determined by [facility]'s [facility] [place]. This test has been authorized by FDA under an Emergency Use Authorization (EUA). This test has been validated in accordance with the FDA's Guidance Document Policy for Diagnostics Testing in Laboratories Certified to Perform High Complexity Testing under CLIA prior to Emergency use Authorization for Coronavirus Disease 2019 during the Public Health Emergency issued on September 18, 2019. Test performed by [facility], [facility] [place], [facility] [place] [address]. INFLUENZA A PCR: Negative for Influenza A by RT-PCR INFLUENZA B PCR: Negative for Influenza B by RT-PCR [facility] documented as of this encounter (statuses as of 12/26/2021) [facility]01-09[facility]2017 History of Past illness Narrative* Problem Noted Date Resolved Date Strain of back 07/29/2016 03/04/2019 Cervicalgia 07/29/2016 03/04/2019 documented as of this encounter (statuses as of 12/31/2021) [facility] History of Past illness Narrative* Problem Noted Date Resolved Date Strain of back 07/29/2016 03/04/2019 Cervicalgia 07/29/2016 03/04/2019 documented as of this encounter (statuses as of 01/07/2023) [facility] History of Past illness Narrative* Problem Noted Date Resolved Date Strain of back 07/29/2016 03/04/2019 Cervicalgia 07/29/2016 03/04/2019 documented as of this encounter (statuses as of 01/16/2023) [facility] History of Past illness Narrative* Problem Noted Date Resolved Date Strain of back 07/29/2016 03/04/2019 Cervicalgia 07/29/2016 03/04/2019 documented as of this encounter (statuses as of 01/16/2023) [facility] History of Past illness Narrative* Problem Noted Date Diagnosed Date Resolved Date Strain of back 07/29/2016 03/04/2019 Cervicalgia 07/29/2016 03/04/2019 documented as of this encounter (statuses as of 03/03/2023) [facility] History of Past illness Narrative* Problem Noted Date Diagnosed Date Resolved Date Strain of back 07/29/2016 03/04/2019 Cervicalgia 07/29/2016 03/04/2019 documented as of this encounter (statuses as of 03/27/2023) [address]09-2017 History of Past illness Narrative* Problem Noted Date Diagnosed Date Resolved Date Strain of back 07/29/2016 03/04/2019 Cervicalgia 07/29/2016 03/04/2019 documented as of this encounter (statuses as of 04/07/2023) [facility] note* Diagnosis Acute midline low back pain without sciatica- Primary documented in this encounter [facility] note* Diagnosis Upper back strain, initial encounter- Primary documented in this encounter [facility] note* Diagnosis Depression, unspecified depression type- Primary Bipolar affective disorder, remission status unspecified ([facility]) documented in this encounter [facility] note* Diagnosis Type 1 diabetes mellitus without complication ([facility])- Primary Type I (juvenile type) diabetes mellitus without mention of complication, not stated as uncontrolled Nausea Nausea alone documented in this encounter [facility] note* Diagnosis Exposure to SARS-associated coronavirus- Primary Sore throat Acute pharyngitis documented in this encounter [facility] Summary Purpose Family History No Family History Records FoundNo Family History Records Found Advance Directives No Advanced Directives Records FoundNo Advanced Directives Records Found Reason for Referral Specialty Diagnoses / Procedures Referred By Papo keating Referred To Contact [facility] Diagnoses Upper back strain, initial encounter Procedures CONSULT TO PHYSICAL THERAPY PHYSICAL THERAPY EVALUATION HIGH COMPLEX 45 MINS Rakan Hodge PA-C [address] [place] [address] [facility] [address] [address] Referral ID Status Reason Start Date Expiration Date Visits Requested Visits Authorized [id number] Authorized Auto-Generat ed Referral 12/31/2021 12/31/2022 1 1 Additional Source Comments INFORMATION SOURCE (unrecogn ized section and content) DATE CREATED AUTHOR AUTHOR'S ORGANIZ ATION 04/08/2023 [facility] Source Comments (unrecognize d section and content) In the event this informatio n is protected by the Federal Confidentiality of Alcohol and Drug Abuse Patient Records regulations: The Federal rules restrict any use of the information to criminally investigate or prosecute any alcohol or drug abuse patient.[facility] the event this information is protected by the Federal Confidentiality of Alcohol and Drug Abuse Patient Records regulations: The Federal rules restrict any use of the information to criminally investigate or prosecute any alcohol or drug abuse patient.[facility] the event this information is protected by the Federal Confidentiality of Alcohol and Drug Abuse Patient Records regulations: The Federal rules restrict any use of the information to criminally investigate or prosecute any alcohol or drug abuse patient.[facility] the event this information is protected by the Federal Confidentiality of Alcohol and Drug Abuse Patient Records regulations: The Federal rules restrict any use of the information to criminally investigate or prosecute any alcohol or drug abuse patient.[facility] the event this information is protected by the Federal Confidentiality of Alcohol and Drug Abuse Patient Records regulations: The Federal rules restrict any use of the information to criminally investigate or prosecute any alcohol or drug abuse patient.[facility] the event this information is protected by the Federal Confidentiality of Alcohol and Drug Abuse Patient Records regulations: The Federal rules restrict any use of the information to criminally investigate or prosecute any alcohol or drug abuse patient.[facility] the event this information is protected by the Federal Confidentiality of Alcohol and Drug Abuse Patient Records regulations: The Federal rules restrict any use of the information to criminally investigate or prosecute any alcohol or drug abuse patient.[facility] the event this information is protected by the Federal Confidentiality of Alcohol and Drug Abuse Patient Records regulations: The Federal rules restrict any use of the information to criminally investigate or prosecute any alcohol or drug abuse patient.[facility] Reason for Visit (unrecogniz ed section and content) Reason Comments Back Pain Reason Onset Date Comments Refill Request 01/06/2023 Reason Comments Psychiatric Problem Patient thinks she m ay be bipolar Reason Comments bh consult Reason Comments ER F/U Reason Comments Fax last OV note Reason Comments Nasal Congestion drainage, headache, cough and sore throat x 1 week Care Teams (unrecognized sec tion and content) 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 Start Date End Date Josi Candelario MD [address] [place], [place] [address] [phone] PCP - General Family Practice 03/04/19 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 Start Date End Date Josi Candelario MD [address] [place], [place] [address] [phone] PCP - General Family Medicine 01/06/23 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 Start Date End Date Josi Candelario MD [address] [place], [place] [address] [phone] PCP - General Family Medicine 01/06/23 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 Start Date End Date Josi Candelario MD [address] [place], [place] [id number] [phone] PCP - General Family Medicine 01/06/23 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 Start Date End Date Josi Candelario MD [address] [place] [address] PCP - General Family Medicine 01/06/23 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 Start Date End Date Josi Candelario MD [address] [place] [address] PCP - General Family Medicine 01/06/23 FOR RECORDS PERTAINING TO PATIENTS WHO ARE OR HAVE BEEN ENROLLED IN A CHEMICAL DEPENDENCY/SUBSTANCEABUSE PROGRAM, SOME INFORMATION MAY BE OMITTED. This clinical summary was aggregated from multiple sources. Caution should be exercised in using it in the provision of clinical care. This summary normalizes information from multiple sources, and as a consequence, information in this document may materially change the coding, format and clinical context of patient data. In addition, data may be omitted in some cases. CLINICAL DECISIONS SHOULD BE BASED ON THE PRIMARY CLINICAL RECORDS. [facility]. provides no warranty or guarantee of the accuracy or completeness of information in this document.
[2023-08-23] MEDS: Ondansetron 4 MG/2 ML Vial IV (13:07)
[2023-08-23] MEDS: 0.9% Normal Saline (1000mL) 1,000 ML 999 ML IV (13:07)
[2023-08-23 13:20] LABS: Absolute Lymphocyte Count 0.59 X10^3/uL (0.83-4.51); Absolute Neutrophil Count 2.5 X10^3/uL (2.0-7.7); Basophil# 0.03 X10^3/uL; Basophil% 0.9 % (0-1); Hematocrit 40.6 % (37-47); Lymphocyte # 0.59 X10^3/ul (0.83-4.51); Lymphocyte % 16.8 % (19-41); Mean Corpuscular Hgb 27.3 pg (27.0-32.0); Mean Corpuscular Volume 85.1 fL (81-99); Mean Platelet Vol. 8.4 fl (6.2-12.0); Monocyte% 11.4 % (0-10); NRBC Flagged by Analyzer 0 % (0-5); Neutrophil # 2.49 X10^3/uL (2.7-7.7); Neutrophil % 70.6 % (47-70); POSITIVE DIFFERENTIAL YES; Platelet Count 312 K/mm3 (150-450); RBC Distribution Width CV 13.3 % (11.6-14.6); RBC Distribution Width SD 41.6 fl (35.1-43.9); Red Blood Count 4.77 M/mm3 (4.2-5.4); White Blood Count 3.5 K/mm3 (4.4-11.0)
[2023-08-23 13:27] LABS: Blood Gas Specimen Type VEN; O2 Delivery Device Not entered; SITE Not entered; VBG BASE EXCESS 0 mmol/L (-1.0-3.5); VBG Bicarbonate 23 mmol/L (22-26); VBG PO2 64 mmHg (25-40); VBG SO2 95 % (50-70); VBG TCO2 24 mmol/L (23-33); VBG pCO2 28.3 mmHg (41-51); VBG pH 7.52 (7.32-7.42)
[2023-08-23 13:30] LABS: Bacteria 0 SEEN /hpf (None Seen); Mucous, Urine 0 SEEN /hpf (<or=2+); Red Blood Cells-Urine 0 SEEN /hpf (0-5); Squamous Epithelial Cells - UA 0 SEEN /hpf (5-10); White Blood Cells 0 SEEN /hpf (0-5)
[2023-08-23 13:38] LABS: Color, Urine Yellow (Yellow); Glucose, Dipstick Normal (Normal); Ketone-Dipstick 15 mg/dl (Negative); Leukocyte Esterase-Dipstick Negative /ul (Negative); Nitrite-Dipstick Negative (Negative); Occult Blood-Urine Negative /ul (Negative); Protein-Dipstick 30 mg/dl (Negative); Specific Gravity, Urine 1.015 (1.002-1.030); Urine Bilirubin Dipstick Negative (Negative); Urine Clarity Clear (Clear); Urine Urobilinogen Normal (Normal)
[2023-08-23 13:44] LABS: Internal QC Validated? YES +Cl - CLEAR BKGD; Pregnancy, Urine Negative Negative
[2023-08-23 13:46] LABS: ALB/GLOB Ratio 0.9 RATIO (0.9-2.4); AST(SGOT) 17 U/L (15-37); Alanine Aminotransfer ALT/SGPT 19 U/L (13-56); Albumin, Serum 3.6 g/dL (3.2-5.0); Alkaline Phosphatase 74 U/L (45-117); Anion Gap 7 (5-15); BUN 13 mg/dL (7-18); Calcium,Total 8.8 mg/dL (8.5-10.1); Chloride 109 mmol/L (98-107); Creatinine, Serum 0.65 mg/dL (0.55-1.02); EST Glomerular Filtration Rate 118 mL/min (>60); Est Glom Filt Rate - Afr Amer 143 mL/min (>60); Estimated Creatinine Clearance 115.76 ml/min; Globulin 3.8 g/dL (2.2-4.2); Glucose 159 mg/dL (74-106); Lipase 11 U/L (13-75); Potassium 3.6 mmol/L (3.5-5.1); Protein, Total 7.4 g/dL (6.4-8.2); Sodium Level 139 mmol/L (136-145); Troponin-I HS 3 pg/mL (3.0-54.0)
--- NOTE | 2023-08-23 13:50 | RAD_ITS ---
STUDY: X-RAY CHEST REASON FOR EXAM: Female, 23 years old. cough TECHNIQUE: PA and lateral views of the chest. COMPARISON: March 01, 2023 FINDINGS: The lungs are clear and expanded. There is no demonstrated pleural abnormality. Normal size heart. Normal mediastinum and kaleigh. Normal visualized pulmonary arteries. Normal visualized aortic arch and descending thoracic aorta. Normal visualized thoracic spine. Normal visualized ribs, clavicles, and shoulders. There is no demonstrated abnormality of the visualized soft tissue structures of the upper abdomen. RAD/Chest PA and Lateral IMPRESSION: Normal x-ray examination of the chest. Electronically Signed: Jos Cortez MD at 14:44 EST ,
[2023-08-23] MEDS: Acetaminophen 325 MG Tablet 650 MG PO (14:38)
[2023-08-23] MEDS: Ketorolac 15 MG/ML Vial IV (14:39)
[2023-08-23] MEDS: Oseltamivir Phosphate 75 MG Capsule PO (15:29)
[2023-08-23 15:33] VITALS: BP 130/62; PULSE 90; RESP 18; O2SAT 99
== END 2023-08-23 15:36 | disposition home or self-care (01) ==
PROVIDERS: Emergency Provider Emergency Medicine; Visit Provider Emergency Medicine
DX: J10.1 Influenza due to other identified influenza virus with other respiratory manifestations (principal); E10.9 Type 1 diabetes mellitus without complications; F12.90 Cannabis use, unspecified, uncomplicated
CPT/HCPCS: 71046; 80053; 81001; 81025; 82009; 82803; 83690; 84484; 85025; 87631; 93005; 96374; 96375; 99284; J7030; A4216; J2405

== ENCOUNTER 2023-10-16 15:57 | Inpatient (IN) | payer OTHER, SELFPAY ==
[2023-10-16] VITALS (12 sets, daily range): BP systolic 128–158; BP diastolic 72–95; PULSE 97–125; RESP 14–27; TEMP 35.9–37.1; O2SAT 97–100; BMI 31.1; BMI 28.3
--- NOTE | 2023-10-16 16:08 | EKG12_ITS ---
Test Reason : Blood Pressure : / mmHG Vent. Rate : 094 BPM Atrial Rate : 094 BPM P-R Int : 114 ms QRS Dur : 082 ms QT Int : 338 ms P-R-T Axes : 038 072 012 degrees QTc Int : 422 ms Normal sinus rhythm Nonspecific T wave abnormality Abnormal ECG Confirmed by GREGORIA AGOSTO, RACHNA ([id number]), market editor ARELY OMALLEY ([id number]) on 10/20/2023 11:00:11 AM Referred By: Damien Villagran Confirmed By:RACHNA KINNEY MD
--- NOTE | 2023-10-16 16:09 | EDS_ITS ---
HPI History of Present Illness Chief Complaint: Hyperglycemia Detail of Chief Complaint: Elevated blood sugars Informant: patient and parent Narrative Narrative: Patient presents to the emergency department complaint of elevated blood sugars today. Patient states that she started having nausea and vomiting last evening. Also having diarrhea. Patient is a type I diabetic. Patient states that she thinks she may have accidentally bumped off her insulin pump last evening and did not have anyone to put back on. She denies recent illness. Denies dysuria urgency or frequency. She has had history of DKA. [facility] Medical History Anxiety and depression Asthma Cannabis hyperemesis syndrome concurrent with and due to cannabis abuse Diabetes type 1, controlled DKA, type 1 History of marijuana use Hypokalemia Hypophosphatemia Implanon in place Insulin pump titration Presence of insulin pump Home Medications albuterol sulfate 90 mcg/actuation aerosol inhaler (Ventolin HFA) 2 puff inhalation Q4H PRN SHORTNES OF BREATH/WHEEZING 08/25/18 [History Last Taken 03/02/23] Ketone Urine Test (acetone (urine) test) #50 ea 11/05/21 [Rx Last Taken Unknown] fluticasone propionate 50 mcg/actuation nasal spray,suspension 2 spray intranasal DAILY NASAL CONGESTION 11/21/22 [History Last Taken 02/12/23] blood-glucose transmitter (Dexcom G6 Transmitter device) #1 ea 11/23/22 [Rx Last Taken Unknown] pen needle, diabetic 32 gauge x 5/32 (BD Ultra-Fine Opal Pen Needle) #120 ea 11/23/22 [Rx Last Taken Unknown] hydroxyzine pamoate 25 mg capsule (Vistaril) 25 mg PO QHS ITCHING #30 caps 01/13/23 [Rx Last Taken 02/12/23] insulin glargine 100 unit/mL (3 mL) subcutaneous pen (Basaglar KwikPen U-100 Insulin) 20 unit subcut QHS 03/01/23 [History Last Taken 03/02/23] blood-glucose sensor (Dexcom G6 Sensor device) #9 ea 05/12/23 [Rx Last Taken Unknown] insulin aspart U-100 100 unit/mL (3 mL) subcutaneous pen (Novolog FlexPen U-100 Insulin aspart) 15 unit (0.15 mL) subcut TID #40.5 mL 06/05/23 [Rx Last Taken Unknown] blood-glucose transmitter (Dexcom G6 Transmitter device) #1 ea 08/14/23 [Rx Last Taken Unknown] insulin pump cartridge,automated dose,BT with controller subcutaneous (Omnipod 5 G6 Intro Kit (Gen 5) subcutaneous cartridge with controller) #1 ea 08/15/23 [Rx Last Taken Unknown] insulin pump cart,automated,BT (Omnipod 5 G6 Pods (Gen 5) subcutaneous cartridge) #45 ea 09/18/23 [Rx Last Taken Unknown] Allergy/AdvReac Type Severity Reaction Status Date / Time bee venom protein (honey bee) Allergy Severe Anaphylaxis Verified 10/16/23 15:57 [bee stings] Penicillins Allergy Unknown Verified 10/16/23 15:57 Sulfa (Sulfonamide Allergy Unknown Verified 10/16/23 15:57 Antibiotics) prednisone AdvReac Vomiting Verified 10/16/23 15:57 Family History Grandmother Diabetes Sister Asthma Brother Asthma Mother Heart disease Surgical History History of placement of ear tubes Social History household members: family Smoking Status: Never smoker second hand exposure: No alcohol intake: never substance use type: other details: Cannabis, last use ~ 1 month prior, ingested. ROS ROS ED Review of Systems ROS Unobtainable: other Constitutional Constitutional ED: Reports lethargy; Denies chills, fever(s), sweats or weight loss Eyes Eyes: Denies blurry vision, change in vision or diplopia ENT ENT ED: Denies rhinorrhea or sore throat Cardiovascular Cardiovascular: Denies chest pain, orthopnea or racing heartbeat Respiratory/Chest Respiratory/Chest: Denies cough, dyspnea, dyspnea on exertion, orthopnea or sputum Gastrointestinal Gastrointestinal: Reports diarrhea, nausea and vomiting; Denies abdominal pain Genitourinary Genitourinary ED: Denies dysuria, hematuria or urinary frequency Musculoskeletal Musculoskeletal: Denies arthralgias, back pain, myalgias or neck pain Integumentary Denies abscess, Abrasions or rash Neurologic Neurologic: Denies headache(s) or weakness Psychiatric Psychiatric: Denies anxiety, depression or suicidal thoughts Endocrine Endocrinology: Denies polydipsia, polyphagia or polyuria Hematologic/Lymphatic Hematologic/Lymphatic: Denies easy bleeding, easy bruising or lymphadenopathy Allergic/Immunologic Allergic/Immunologic ED: Denies mouth swelling, tongue swelling or urticaria EXAM Physical Exam Const Vital Signs: 10/16/23 15:57 10/16/23 16:01 10/16/23 16:25 Temperature 97.0 F L Temperature Source Temporal Pulse Rate 125 H 105 H Respiratory Rate 16 16 Respiratory Pattern Tachypnea Blood Pressure 128/95 H 145/95 H Blood Pressure Mean 106 111 Pulse Ox 100 99 Oxygen Delivery Method Room Air Room Air 10/16/23 16:49 10/16/23 17:00 Temperature Temperature Source Pulse Rate 99 98 Respiratory Rate 27 H 23 H Respiratory Pattern Blood Pressure 140/82 H Blood Pressure Mean 99 Pulse Ox 98 97 Oxygen Delivery Method Room Air Positive well nourished and well developed General Appearance ED: well developed and NAD HEENT Reports TM's clear and dry mucous membranes; Denies moist mucous membranes normocephalic and atraumatic; Negative for trauma or tenderness Tympanic Membrane ED: Yes TM's clear Mouth ED: Yes dry mucous membranes Mouth: dry mucous membranes Eyes PERRL and EOMs intact bilaterally General Eye ED: Negative for pale conjunctiva or scleral icterus Neck no lymphadenopathy, supple and no JVD General: Negative for tenderness Chest Wall inspection of chest normal and palpation of chest normal Chest: Negative for tenderness Resp normal respiratory effort and clear to auscultation bilaterally Effort and Inspection: Negative for respiratory distress or pain with movement Auscultation: Negative for rhonchi, wheezes or diminished lung sounds Cardio regular rhythm, S1 normal heart sound, S2 normal heart sound and no murmurs; Negative for regular rate Rate: tachycardic Peripheral Pulses: pulses 2+ throughout GI normal to inspection, nondistended, normoactive bowel sounds, soft to palpation, non-tender, non-distended and no masses Back/Spine no CVA tenderness and no thoracic nor lumbar tenderness Extremity normal to inspection General Extremety ED: Negative for edema General Extremity: Negative for edema Neuro oriented x3, CN's II-XII intact bilaterally, no sensory deficits noted and gait normal Sensorium / Orientation: awake, alert, oriented to person, oriented to place and oriented to time Motor Exam: strength 5/5 throughout and strength abnormal Psych mental status grossly normal Skin no rashes or lesions noted and no wounds MDM MDM MDM Narrative Medical decision making narrative: Patient presents with hyperglycemia and ran out of insulin pump apparently. She has been vomiting and diarrhea. History of DKA. Patient presents tachycardic and tachypneic. Suspect DKA. IV line established. Patient was given a liter of the same fluid bolus and was ordered an insulin drip. CBC with differential, 16.9 with hemoglobin 16 and platelet count of 455. Chemistries unremarkable. Glucose was 387. CO2 was 17 and anion gap of 19. Moderate acetone. hCG was negative. Will discuss case with hospitalist to evaluate patient for admission for DKA. Lab Data Attestation: I reviewed the patient's lab results. Labs: Laboratory Results - last 24 hr 10/16/23 16:20 WBC 16.9 H RBC 5.87 H Hgb 16.4 H Hct 50.4 H MCV 85.9 MCH 27.9 MCHC 32.5 RDW Std Deviation 40.3 RDW Coeff of Marilynn 13.0 Plt Count 455 H MPV 9.1 Immature Gran % (Auto) 0.500 Neut % (Auto) 93.3 H Lymph % (Auto) 3.7 L [place] % (Auto) 2.1 Eos % (Auto) 0.0 Baso % (Auto) 0.4 Absolute Neuts (auto) 15.8 H Absolute Lymphs (auto) 0.63 L Nucleated RBC % 0 Sodium 137 Potassium 4.2 Chloride 101 Carbon Dioxide 17.0 L Anion Gap 19 H BUN 18 Creatinine 1.02 Estim Creat Clear Calc 73.50 Est GFR (MDRD) Af Amer 85 Est GFR (MDRD) Non-Af 70 BUN/Creatinine Ratio 17.6 Glucose 387 H Calcium 10.0 Magnesium 2.2 Serum , Qual NEGATIVE Acetone Level MODERATE H POC Glucose 357 H EKG Initial EKG: Attestation: I personally reviewed and interpreted this EKG as follows: Comments: Sinus rhythm with rate of [address] changes Discharge Plan Dx/Rx/DC Orders Clinical Impression: Hx of type 1 diabetes mellitus, Diabetic ketoacidosis, Tachycardia Disposition Disposition: [facility]
[2023-10-16] MEDS: 0.9% Normal Saline (1000mL) 1,000 ML 999 ML IV (16:22)
[2023-10-16 16:38] LABS: Absolute Lymphocyte Count 0.63 X10^3/uL (0.83-4.51); Absolute Neutrophil Count 15.8 X10^3/uL (2.0-7.7); Basophil# 0.07 X10^3/uL; Basophil% 0.4 % (0-1); Hematocrit 50.4 % (37-47); Hemoglobin 16.4 g/dL (12.0-15.0); Lymphocyte # 0.63 X10^3/ul (0.83-4.51); Lymphocyte % 3.7 % (19-41); Mean Corp Hgb Conc 32.5 g/dL (32-36); Mean Corpuscular Hgb 27.9 pg (27.0-32.0); Mean Corpuscular Volume 85.9 fL (81-99); Mean Platelet Vol. 9.1 fl (6.2-12.0); Monocyte# 0.35 X10^3/uL; Monocyte% 2.1 % (0-10); NRBC Flagged by Analyzer 0 % (0-5); Neutrophil # 15.81 X10^3/uL (2.7-7.7); Neutrophil % 93.3 % (47-70); Platelet Count 455 K/mm3 (150-450); RBC Distribution Width SD 40.3 fl (35.1-43.9); Red Blood Count 5.87 M/mm3 (4.2-5.4); White Blood Count 16.9 K/mm3 (4.4-11.0)
[2023-10-16 16:44] LABS: Bedside Glucose 357 mg/dL (74-106)
[2023-10-16 16:51] LABS: Internal QC Validated? YES +Cl - CLEAR BKGD; Pregnancy, Serum, hCG Quali. NEGATIVE Negative
[2023-10-16 16:54] LABS: Anion Gap 19 (5-15); BUN 18 mg/dL (7-18); BUN/Creat Ratio 17.6 RATIO (10-20); Chloride 101 mmol/L (98-107); Creatinine, Serum 1.02 mg/dL (0.55-1.02); EST Glomerular Filtration Rate 70 mL/min (>60); Est Glom Filt Rate - Afr Amer 85 mL/min (>60); Glucose 387 mg/dL (74-106); Magnesium 2.2 mg/dL (1.6-2.6); Potassium 4.2 mmol/L (3.5-5.1); Sodium Level 137 mmol/L (136-145)
[2023-10-16 17:10] LABS: Bacteria 0 SEEN /hpf (None Seen); Mucous, Urine 0 SEEN /hpf (<or=2+); Red Blood Cells-Urine 0 SEEN /hpf (0-5); White Blood Cells 0 SEEN /hpf (0-5)
[2023-10-16 17:13] LABS: Color, Urine Yellow (Yellow); Glucose, Dipstick 1000 mg/dl (Normal); Leukocyte Esterase-Dipstick Negative /ul (Negative); Nitrite-Dipstick Negative (Negative); Occult Blood-Urine 10 /ul (Negative); Protein-Dipstick 100 mg/dl (Negative); Specific Gravity, Urine 1.025 (1.002-1.030); Urine Bilirubin Dipstick Negative (Negative); Urine Clarity Clear (Clear); Urine Urobilinogen Normal (Normal)
[2023-10-16] MEDS: Insulin Lispro 100 UNIT in 0.9% Normal Saline (100mL Bag) 99 ML 6.9 UNIT CONT INF (17:15)
[2023-10-16 17:43] LABS: Ketone-Dipstick 150 mg/dl (Negative)
[2023-10-16 17:44] LABS: Squamous Epithelial Cells - UA 0-5 SEEN /hpf (5-10)
[2023-10-16 17:46] LABS: Bedside Glucose 381 mg/dL (74-106)
--- NOTE | 2023-10-16 17:48 | PCM.HP.STD ---
[facility] - General General Date of Service: 10/16/23 Chief Complaint: Nausea and vomiting HPI Narrative KALIE DESIR, is a 23 F who presents with nausea and vomiting. Patient is type I diabetic who had an insulin pump and then it apparently dislodged last night and then patient started having symptoms with nausea vomiting, abdominal pain consistent with she has had DKA in the past. Did not have any other supplies of insulin so presented to the emergency room. Emergency room, patient was noted to be in DKA and did receive IV fluids as well as started on an insulin drip. [facility] Medical History Anxiety and depression Asthma Cannabis hyperemesis syndrome concurrent with and due to cannabis abuse Diabetes type 1, controlled DKA, type 1 History of marijuana use Hypokalemia Hypophosphatemia Implanon in place Insulin pump titration Presence of insulin pump Home Medications albuterol sulfate 90 mcg/actuation aerosol inhaler (Ventolin HFA) 2 puff inhalation Q4H PRN SHORTNES OF BREATH/WHEEZING 08/25/18 [History Last Taken 03/02/23] Ketone Urine Test (acetone (urine) test) #50 ea 11/05/21 [Rx Last Taken Unknown] fluticasone propionate 50 mcg/actuation nasal spray,suspension 2 spray intranasal DAILY NASAL CONGESTION 11/21/22 [History Last Taken 02/12/23] blood-glucose transmitter (Dexcom G6 Transmitter device) #1 ea 11/23/22 [Rx Last Taken Unknown] pen needle, diabetic 32 gauge x 5/32 (BD Ultra-Fine Opal Pen Needle) #120 ea 11/23/22 [Rx Last Taken Unknown] hydroxyzine pamoate 25 mg capsule (Vistaril) 25 mg PO QHS ITCHING #30 caps 01/13/23 [Rx Last Taken 02/12/23] insulin glargine 100 unit/mL (3 mL) subcutaneous pen (Basaglar KwikPen U-100 Insulin) 20 unit subcut QHS 03/01/23 [History Last Taken 03/02/23] blood-glucose sensor (Dexcom G6 Sensor device) #9 ea 05/12/23 [Rx Last Taken Unknown] insulin aspart U-100 100 unit/mL (3 mL) subcutaneous pen (Novolog FlexPen U-100 Insulin aspart) 15 unit (0.15 mL) subcut TID #40.5 mL 06/05/23 [Rx Last Taken Unknown] blood-glucose transmitter (Dexcom G6 Transmitter device) #1 ea 08/14/23 [Rx Last Taken Unknown] insulin pump cartridge,automated dose,BT with controller subcutaneous (Omnipod 5 G6 Intro Kit (Gen 5) subcutaneous cartridge with controller) #1 ea 08/15/23 [Rx Last Taken Unknown] insulin pump cart,automated,BT (Omnipod 5 G6 Pods (Gen 5) subcutaneous cartridge) #45 ea 09/18/23 [Rx Last Taken Unknown] Allergy/AdvReac Type Severity Reaction Status Date / Time bee venom protein (honey bee) Allergy Severe Anaphylaxis Verified 10/16/23 15:57 [bee stings] Penicillins Allergy Unknown Verified 10/16/23 15:57 Sulfa (Sulfonamide Allergy Unknown Verified 10/16/23 15:57 Antibiotics) prednisone AdvReac Vomiting Verified 10/16/23 15:57 Family History Grandmother Diabetes Sister Asthma Brother Asthma Mother Heart disease Surgical History History of placement of ear tubes Social History household members: family Smoking Status: Never smoker second hand exposure: No alcohol intake: never substance use type: other details: Cannabis, last use ~ 1 month prior, ingested. ROS ROS Narrative All review of systems were negative except as mentioned above in the history of present illness and the other review of systems. Vital Signs Vital Signs Vital Signs: 10/16/23 15:57 10/16/23 16:01 10/16/23 16:25 Temperature 36.1 C L Temperature Source Temporal Pulse Rate 125 H 105 H Respiratory Rate 16 16 Respiratory Pattern Tachypnea Blood Pressure 128/95 H 145/95 H Blood Pressure Mean 106 111 Pulse Ox 100 99 Oxygen Delivery Method Room Air Room Air 10/16/23 16:49 10/16/23 17:00 Temperature Temperature Source Pulse Rate 99 98 Respiratory Rate 27 H 23 H Respiratory Pattern Blood Pressure 140/82 H Blood Pressure Mean 99 Pulse Ox 98 97 Oxygen Delivery Method Room Air Weight Weight: 69.8 kg Body Mass Index (BMI) 31.1 Physical Exam Const alert and no apparent distress Constitutional Narrative: Listless. Afebrile. General Appearance: cooperative HEENT normocephalic and head/scalp atraumatic Neck no lymphadenopathy Neck Narrative: no thyromegaly Resp normal respiratory effort, no retractions, no use of accessory muscles and clear to auscultation bilaterally Cardio regular rate, regular rhythm, S1 normal heart sound and S2 normal heart sound GI normal to inspection, nondistended, normoactive bowel sounds, soft to palpation, non-tender and non-distended Extremity normal to inspection Neuro Sensorium / Orientation: awake and alert Psych Psych Narrative: flat affect Results Lab / Micro Data 10/16/23 16:20 10/16/23 16:20 Labs: Laboratory Results - last 24 hr 10/16/23 16:20: WBC 16.9 H, RBC 5.87 H, Hgb 16.4 H, Hct 50.4 H, MCV 85.9, MCH 27.9, MCHC 32.5, RDW Std Deviation 40.3, RDW Coeff of Marilynn 13.0, Plt Count 455 H, MPV 9.1, Immature Gran % (Auto) 0.500, Neut % (Auto) 93.3 H, Lymph % (Auto) 3.7 L, [place] % (Auto) 2.1, Eos % (Auto) 0.0, Baso % (Auto) 0.4, Absolute Neuts (auto) 15.8 H, Absolute Lymphs (auto) 0.63 L, Nucleated RBC % 0, Sodium 137, Potassium 4.2, Chloride 101, Carbon Dioxide 17.0 L, Anion Gap 19 H, BUN 18, Creatinine 1.02, Estim Creat Clear Calc 73.50, Est GFR (MDRD) Af Amer 85, Est GFR (MDRD) Non-Af 70, BUN/Creatinine Ratio 17.6, Glucose 387 H, Calcium 10.0, Magnesium 2.2, Serum , Qual NEGATIVE, Acetone Level MODERATE H, POC Glucose 357 H 10/16/23 17:04: Urine Color Yellow, Urine Clarity Clear, Urine pH 5.0, Ur Specific [place] 1.025, Urine Protein 100 H, Urine Glucose (UA) 1000 H, Urine Ketones 150 A*, Urine Occult Blood 10 H, Urine Nitrite Negative, Urine Bilirubin Negative, Urine Urobilinogen Normal, Ur Leukocyte Esterase Negative, Urine RBC 0 SEEN, Urine WBC 0 SEEN, Ur Squamous Epith Cells 0-5 SEEN, Urine Bacteria 0 SEEN, Urine Mucus 0 SEEN 10/16/23 17:15: POC Glucose 381 H Assessment & Plan Assessment/Plan (1) Diabetic ketoacidosis: PLAN: Plan DKA In a type I diabetic. Patient stated that her insulin pump dislodged but did not have any other supplies to be able to administer insulin at home. Hence why she came into the hospital. Patient be on an insulin drip as well as IV fluids. Routine BMPs. When she is out of DKA I would recommend starting her on insulin glargine 20 units and then prandial insulin. Patient had been on 15 3 times daily, and depending on the patient's oral intake may wish to either have a lower dose or just utilize sliding scale insulin. Patient may need some insulin when she is discharge either through her pump or to be prescribed prandial and basal insulin upon discharge. Patient has a follow-up appointment with [place] [facility] on November 09. Check an A1c VTE prophylaxis with enoxaparin Patient warrants admission with high risk medication with an insulin drip. This cannot be safely managed at home because of the risk of worsening DKA could be deadly. Charges/Coding Visit Charges Inpatient E&M: 70644 Init Hosp L3
[2023-10-16] MEDS: Ondansetron 4 MG/2 ML Vial IV (18:05)
--- NOTE | 2023-10-16 18:29 | ED.RN ---
Attempted to call report to ICU, primary nurse unavailable. I was instructed they will call back when ready.
[2023-10-16 18:43] LABS: Bedside Glucose 297 mg/dL (74-106)
[2023-10-16 18:46] LABS: Anion Gap 19 (5-15); BUN 18 mg/dL (7-18); BUN/Creat Ratio 20.8 RATIO (10-20); Calcium,Total 8.3 mg/dL (8.5-10.1); Chloride 111 mmol/L (98-107); Creatinine, Serum 0.86 mg/dL (0.55-1.02); EST Glomerular Filtration Rate 85 mL/min (>60); Est Glom Filt Rate - Afr Amer 102 mL/min (>60); Estimated Creatinine Clearance 87.17 ml/min; Glucose 310 mg/dL (74-106); Potassium 3.3 mmol/L (3.5-5.1); Sodium Level 142 mmol/L (136-145)
--- NOTE | 2023-10-16 18:46 | ED.RN ---
report called to ICU nurseDenisa.
[2023-10-16] MEDS: proCHLORPERazine 10 MG/2 ML Vial 5 MG IV (19:53)
[2023-10-16 20:10] LABS: Bedside Glucose 229 mg/dL (74-106)
[2023-10-16] MEDS: Dext 5%-0.45% NS 1,000 ML 150 ML IV (20:36)
[2023-10-16 20:55] LABS: Bedside Glucose 224 mg/dL (74-106)
[2023-10-16] MEDS: Acetaminophen 325 MG Tablet 650 MG PO (21:38)
[2023-10-16] MEDS: hydrOXYzine PAM 25 MG Capsule PO (21:40)
[2023-10-16 22:47] LABS: Bedside Glucose 252 mg/dL (74-106)
[2023-10-16 23:00] LABS: Bedside Glucose 272 mg/dL (74-106)
[2023-10-16 23:28] LABS: Anion Gap 15 (5-15); BUN 17 mg/dL (7-18); BUN/Creat Ratio 20.2 RATIO (10-20); Calcium,Total 9.3 mg/dL (8.5-10.1); Chloride 110 mmol/L (98-107); Creatinine, Serum 0.84 mg/dL (0.55-1.02); EST Glomerular Filtration Rate 87 mL/min (>60); Est Glom Filt Rate - Afr Amer 106 mL/min (>60); Estimated Creatinine Clearance 85.18 ml/min; Glucose 323 mg/dL (74-106); Potassium 4.1 mmol/L (3.5-5.1); Sodium Level 138 mmol/L (136-145)
[2023-10-16 23:55] LABS: Hemoglobin A1c 10.7 % (3.8-5.6)
[2023-10-17] VITALS (13 sets, daily range): BP systolic 92–137; BP diastolic 49–80; PULSE 81–108; RESP 15–21; TEMP 36.3–36.6; O2SAT 98–100; BMI 28.3
[2023-10-17 00:04] LABS: Bedside Glucose 263 mg/dL (74-106)
[2023-10-17 00:50] LABS: Bedside Glucose 266 mg/dL (74-106)
[2023-10-17] MEDS: Ondansetron 4 MG/2 ML Vial IV (01:50)
[2023-10-17 01:57] LABS: Bedside Glucose 238 mg/dL (74-106)
[2023-10-17 03:01] LABS: Bedside Glucose 187 mg/dL (74-106)
[2023-10-17] MEDS: Dext 5%-0.45% NS 1,000 ML 150 ML IV (03:36)
[2023-10-17 03:58] LABS: Bedside Glucose 187 mg/dL (74-106)
[2023-10-17 04:23] LABS: Anion Gap 10 (5-15); BUN 17 mg/dL (7-18); BUN/Creat Ratio 18.3 RATIO (10-20); Calcium,Total 8.8 mg/dL (8.5-10.1); Chloride 113 mmol/L (98-107); Creatinine, Serum 0.93 mg/dL (0.55-1.02); EST Glomerular Filtration Rate 78 mL/min (>60); Est Glom Filt Rate - Afr Amer 94 mL/min (>60); Estimated Creatinine Clearance 76.93 ml/min; Glucose 200 mg/dL (74-106); Potassium 3.9 mmol/L (3.5-5.1); Sodium Level 140 mmol/L (136-145)
[2023-10-17 04:59] LABS: Bedside Glucose 170 mg/dL (74-106)
[2023-10-17 06:57] LABS: Bedside Glucose 173 mg/dL (74-106)
[2023-10-17 06:57] LABS: Bedside Glucose 195 mg/dL (74-106)
[2023-10-17 07:41] LABS: Bedside Glucose 154 mg/dL (74-106)
[2023-10-17] MEDS: 0.9% Normal Saline (1000mL) 1,000 ML 999 ML IV ×2 (08:39→09:54)
[2023-10-17 08:45] LABS: Bedside Glucose 148 mg/dL (74-106)
[2023-10-17 08:57] LABS: Absolute Lymphocyte Count 1.46 X10^3/uL (0.83-4.51); Absolute Neutrophil Count 11.3 X10^3/uL (2.0-7.7); Basophil# 0.02 X10^3/uL; Basophil% 0.1 % (0-1); Hematocrit 39.2 % (37-47); Hemoglobin 12.7 g/dL (12.0-15.0); Lymphocyte # 1.46 X10^3/ul (0.83-4.51); Lymphocyte % 10.9 % (19-41); Mean Corp Hgb Conc 32.4 g/dL (32-36); Mean Corpuscular Hgb 27.1 pg (27.0-32.0); Mean Corpuscular Volume 83.8 fL (81-99); Mean Platelet Vol. 8.8 fl (6.2-12.0); Monocyte# 0.67 X10^3/uL; NRBC Flagged by Analyzer 0 % (0-5); Neutrophil # 11.25 X10^3/uL (2.7-7.7); Neutrophil % 83.6 % (47-70); Platelet Count 388 K/mm3 (150-450); RBC Distribution Width CV 13.4 % (11.6-14.6); RBC Distribution Width SD 40.5 fl (35.1-43.9); Red Blood Count 4.68 M/mm3 (4.2-5.4); White Blood Count 13.5 K/mm3 (4.4-11.0)
[2023-10-17 09:07] LABS: Anion Gap 7 (5-15); BUN 14 mg/dL (7-18); BUN/Creat Ratio 18.9 RATIO (10-20); Calcium,Total 8.7 mg/dL (8.5-10.1); Chloride 114 mmol/L (98-107); Creatinine, Serum 0.74 mg/dL (0.55-1.02); EST Glomerular Filtration Rate 101 mL/min (>60); Est Glom Filt Rate - Afr Amer 122 mL/min (>60); Estimated Creatinine Clearance 96.69 ml/min; Glucose 144 mg/dL (74-106); Potassium 3.1 mmol/L (3.5-5.1); Sodium Level 141 mmol/L (136-145)
[2023-10-17 09:49] LABS: Bedside Glucose 132 mg/dL (74-106)
--- NOTE | 2023-10-17 10:32 | CASEMGMT ---
SARA NICOLE Assessment Face to Face with patient for initial transition planning/care coordination assessment. RN COREY introduced self and role at [facility], pt voices understanding. Pt is A&Ox4 and is resting comfortably in bed and is calm. Care providers, pharmacy, and demographics verified. Admitting dx: DKA COLLETTE Strata: 2 PCP: Naveen Specialists: [facility] Preferred Pharmacy: [facility] Insurance: Pt recently switched to [facility]. Pt concerned about this new insurance covering the costs of her diabetic supplies. This SARA NICOLE educated the pt (after checking [facility] website) that [facility] should cover the costs of the pt supplies. TC to [facility] at this time. They state that the pt needs to bring in her new insurance card for the items to be covered. Pt is aware. Prescription Benefit: Yes LNOK: Alla King (M) Living Arrangements: Pt lives with her mom, mothers BF, and sister in a mobile home with 4 steps to enter with a HR. ADLs/IADLs: Ind Transportation: Self, pt mom, pt friends. States pt mom will drive her home from [facility] DME: Pt states that she has a Dexcom CBGM. Pt states that her insulin pump or sensor fell off while at work and the pt did not have her backup BGM with her. Pt states that she continued to work all day without her insulin. This is what brought her into the hospital. [facility] states that they have refills available for the insulin pump and sensors. Pt made aware. Pt also states that she has 3 working BGM and enough supplies to check her BS. Pt states that her plan now is to use these as a back up for when her Dexcom malfunctions. Pt also has an inhaler. HHC/SNF: Denies Pt?s goal: Home Plan: Pt is ind at home and wishes to DC home once medically ready. 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 Pt denies further questions or concerns now. CM to follow for safe DC home. Walt Mays RN, CM
[2023-10-17 11:05] LABS: Bedside Glucose 97 mg/dL (74-106)
[2023-10-17] MEDS: Fluticasone 0.05% 1 SPRAY NASAL.SRY 2 SPRAY NASAL (11:18)
[2023-10-17] MEDS: Enoxaparin 40 MG/0.4 ML Syringe SC (11:18)
[2023-10-17] MEDS: Potassium Chloride Oral Tablet 20 MEQ 40 MEQ PO (11:18)
[2023-10-17] MEDS: Insulin Glargine-YFGN 100 UNIT/ML Pen 15 UNIT SC (11:19)
[2023-10-17] MEDS: 0.9% Saline Lock 10 ML Syringe IV (11:21)
[2023-10-17] MEDS: Insulin Lispro 100 UNIT/ML INSULN.PEN 10 UNIT SC (13:04)
[2023-10-17] MEDS: Insulin Lispro 100 UNIT/ML INSULN.PEN SC (13:04)
[2023-10-17 13:14] LABS: Bedside Glucose 254 mg/dL (74-106)
--- NOTE | 2023-10-17 14:20 | DCINST_ITS ---
Discharge Instructions Diet Discharge Diet: - (Resume previous diet) Activity Discharge Activity: Return to Normal Activity Return to work on:: 10/20/23 Weight Bearing Status: Full weight bearing Follow Up Care Test Results: Test results from this visit will be discussed in further detail at your follow- up appointment, if applicable. Discharge Plan Admission Admit Date/Time: 10/16/23 17:37 Primary Reason for Your Visit: Diabetic ketoacidosis Attending Provider: Jesus Pineda Primary Care Provider: Minnie Hodge Consulting Providers: Damien Villagran Instructions Additional Instructions / Restrictions: Please increase your fluid intake over the next 24 to 48 hours Contact your software configuration specialist on Friday to get refills on your insulin pump supplies Discharge Orders/Prescriptions Prescriptions: Continued hydroxyzine pamoate [Vistaril] 25 mg capsule 25 mg PO QHS Qty: 30 6RF (DME) Dexcom G6 Sensor Device See Rx Instructions .Route Qty: 9 1RF Rx Instructions: 1 sensor q 10 days albuterol sulfate [Ventolin HFA] 18 GM HFA aerosol inhaler 2 puff inhalation Q4H PRN (Reason: SHORTNES OF BREATH/WHEEZING) fluticasone propionate 50 mcg/actuation spray,suspension 2 spray INTRANASAL DAILY (DME) Dexcom G6 Transmitter Device See Rx Instructions .Route Qty: 1 3RF Rx Instructions: As directed (DME) pen needle, diabetic [BD Ultra-Fine Opal Pen Needle] 32 gauge x 5/32 needle See Rx Instructions .ROUTE .MEDSUPPLY Qty: 120 5RF Rx Instructions: 4 times daily (DME) Ketone Urine Test Strip See Rx Instructions .ROUTE .MEDSUPPLY Qty: 50 1RF Rx Instructions: once/day (DME) Dexcom G6 Transmitter Device See Rx Instructions .Route Qty: 1 1RF Rx Instructions: As directed (DME) Omnipod 5 G6 Intro Kit (Gen 5) Cartridge See Rx Instructions .Route Qty: 1 0RF Rx Instructions: As directed (DME) Omnipod 5 G6 Pods (Gen 5) Cartridge See Rx Instructions .Route Qty: 45 1RF Rx Instructions: change every 48-72 hours Discontinued insulin glargine [Basaglar KwikPen U-100 Insulin] 100 unit/mL (3 mL) insulin pen 20 unit subcut QHS insulin aspart U-100 [Novolog FlexPen U-100 Insulin] 100 unit/mL (3 mL) insulin pen 15 unit subcut TID Qty: 40.5 1RF Referrals / Follow Up: Minnie Hodge [Primary Care Provider] - Disposition Disposition (needs filled in before D/C Order can be placed): Home, Self Care
--- NOTE | 2023-10-17 14:30 | DS.PCM_ITS ---
Providers Date of Admission: 10/16/23 Date of Discharge: 10/17/23 Primary Care Physician: Minnie Hodge Reason For Visit: DKA Diagnosis Discharge Diagnosis (1) Diabetic ketoacidosis: Status: Acute Code(s): E11.10 - Type 2 diabetes mellitus with ketoacidosis without coma Plan 1. DKA #2 uncontrolled type 1 diabetes Medications at Discharge Home Medications albuterol sulfate 90 mcg/actuation aerosol inhaler (Ventolin HFA) 2 puff inhalation Q4H PRN SHORTNES OF BREATH/WHEEZING 08/25/18 Ketone Urine Test (acetone (urine) test) #50 ea 11/05/21 fluticasone propionate 50 mcg/actuation nasal spray,suspension 2 spray intranasal DAILY NASAL CONGESTION 11/21/22 blood-glucose transmitter (Dexcom G6 Transmitter device) #1 ea 11/23/22 pen needle, diabetic 32 gauge x 5/32 (BD Ultra-Fine Opal Pen Needle) #120 ea 11/23/22 hydroxyzine pamoate 25 mg capsule (Vistaril) 25 mg PO QHS ITCHING #30 caps 01/13/23 blood-glucose sensor (Dexcom G6 Sensor device) #9 ea 05/12/23 blood-glucose transmitter (Dexcom G6 Transmitter device) #1 ea 08/14/23 insulin pump cartridge,automated dose,BT with controller subcutaneous (Omnipod 5 G6 Intro Kit (Gen 5) subcutaneous cartridge with controller) #1 ea 08/15/23 insulin pump cart,automated,BT (Omnipod 5 G6 Pods (Gen 5) subcutaneous cartridge) #45 ea 09/18/23 Hospital Course Operations None Procedures None Summary of Care Provided Minutes Spent on Discharge: 31 Hospital Course: This 23-year-old white female was seen in the emergency room at [facility] with chief complaint of elevated blood sugars, she has a history of type 1 diabetes and is on an insulin pump. Patient also complained of nausea and vomiting. Labs obtained in the emergency room showed an elevated white blood cell count at 16.9, hemoglobin was 16.4, patient's glucose was elevated at 387, acetone level was moderate, anion gap was elevated at 19. Patient was admitted to ICU for DKA, she was placed on an insulin drip and blood sugars were monitored. Patient was given IV fluids. On 10/17/2023, patient was seen and examined: On examination she appeared in good health and spirits, she does not appear to be in any distress. Vital signs as documented. Skin warm and dry and without overt rashes. Neck without JVD, thyroid appears normal, trachea is midline, neck is supple. Lungs clear, normal air movement was noted. Heart exam notable for regular rhythm, normal sounds and absence of murmurs, rubs or gallops. Abdomen unremarkable and without evidence of organomegaly, masses, or abdominal aortic enlargement, bowel sounds are present in all 4 quadrants, no abdominal tenderness was noted. Extremities nonedematous, no cyanosis was noted, no clubbing was noted. Neuro: Cranial nerves II through XII are grossly intact, no focal motor deficits were noted, sensation to light touch and pinprick is intact, motor exam 5/5 throughout. Psych: Patient is alert and oriented x3, she does not appear anxious or depressed, she does not appear agitated. Patient was felt to be stable for for discharge home on 10/17/2023, she was instructed to follow-up with her meal room hand within a week. Weight / BMI Weight Weight: 63.5 kg Body Mass Index (BMI) 28.3 ABG / Lab / Microbiology Data 10/17/23 08:30 10/17/23 08:30 Laboratory: Laboratory Results - last 24 hr 10/16/23 16:20: WBC 16.9 H, RBC 5.87 H, Hgb 16.4 H, Hct 50.4 H, MCV 85.9, MCH 27.9, MCHC 32.5, RDW Std Deviation 40.3, RDW Coeff of Marilynn 13.0, Plt Count 455 H, MPV 9.1, Immature Gran % (Auto) 0.500, Neut % (Auto) 93.3 H, Lymph % (Auto) 3.7 L, [place] % (Auto) 2.1, Eos % (Auto) 0.0, Baso % (Auto) 0.4, Absolute Neuts (auto) 15.8 H, Absolute Lymphs (auto) 0.63 L, Nucleated RBC % 0, Sodium 137, Potassium 4.2, Chloride 101, Carbon Dioxide 17.0 L, Anion Gap 19 H, BUN 18, Creatinine 1.02, Estim Creat Clear Calc 73.50, Est GFR (MDRD) Af Amer 85, Est GFR (MDRD) Non-Af 70, BUN/Creatinine Ratio 17.6, Glucose 387 H, Hemoglobin A1c 10.7 H, Calcium 10.0, Magnesium 2.2, Serum , Qual NEGATIVE, Acetone Level MODERATE H, POC Glucose 357 H 10/16/23 17:04: Urine Color Yellow, Urine Clarity Clear, Urine pH 5.0, Ur Specific [place] 1.025, Urine Protein 100 H, Urine Glucose (UA) 1000 H, Urine Ketones 150 A*, Urine Occult Blood 10 H, Urine Nitrite Negative, Urine Bilirubin Negative, Urine Urobilinogen Normal, Ur Leukocyte Esterase Negative, Urine RBC 0 SEEN, Urine WBC 0 SEEN, Ur Squamous Epith Cells 0-5 SEEN, Urine Bacteria 0 SEEN, Urine Mucus 0 SEEN 10/16/23 17:15: POC Glucose 381 H 10/16/23 18:14: Sodium 142, Potassium 3.3 L, Chloride 111 H, Carbon Dioxide 12.0 L, Anion Gap 19 H, BUN 18, Creatinine 0.86, Estim Creat Clear Calc 87.17, Est GFR (MDRD) Af Amer 102, Est GFR (MDRD) Non-Af 85, BUN/Creatinine Ratio 20.8 H, Glucose 310 H, Calcium 8.3 L 10/16/23 18:18: POC Glucose 297 H 10/16/23 19:29: POC Glucose 229 H 10/16/23 20:33: POC Glucose 224 H 10/16/23 21:32: POC Glucose 252 H 10/16/23 22:42: POC Glucose 272 H 10/16/23 22:50: Sodium 138, Potassium 4.1, Chloride 110 H, Carbon Dioxide 13.0 L , Anion Gap 15, BUN 17, Creatinine 0.84, Estim Creat Clear Calc 85.18, Est GFR (MDRD) Af Amer 106, Est GFR (MDRD) Non-Af 87, BUN/Creatinine Ratio 20.2 H, Glucose 323 H, Calcium 9.3 10/16/23 23:44: POC Glucose 263 H 10/17/23 00:31: POC Glucose 266 H 10/17/23 01:35: POC Glucose 238 H 10/17/23 02:39: POC Glucose 187 H 10/17/23 03:33: POC Glucose 187 H 10/17/23 04:00: Sodium 140, Potassium 3.9, Chloride 113 H, Carbon Dioxide 17.0 L , Anion Gap 10, BUN 17, Creatinine 0.93, Estim Creat Clear Calc 76.93, Est GFR (MDRD) Af Amer 94, Est GFR (MDRD) Non-Af 78, BUN/Creatinine Ratio 18.3, Glucose 200 H, Calcium 8.8 10/17/23 04:39: POC Glucose 170 H 10/17/23 05:33: POC Glucose 195 H 10/17/23 06:39: POC Glucose 173 H 10/17/23 07:23: POC Glucose 154 H 10/17/23 08:20: POC Glucose 148 H 10/17/23 08:30: WBC 13.5 H, RBC 4.68, Hgb 12.7, Hct 39.2, MCV 83.8, MCH 27.1, MCHC 32.4, RDW Std Deviation 40.5, RDW Coeff of Marilynn 13.4, Plt Count 388, MPV 8.8, Immature Gran % (Auto) 0.400, Neut % (Auto) 83.6 H, Lymph % (Auto) 10.9 L, [place] % (Auto) 5.0, Eos % (Auto) 0.0, Baso % (Auto) 0.1, Absolute Neuts (auto) 11.3 H, Absolute Lymphs (auto) 1.46, Nucleated RBC % 0, Sodium 141, Potassium 3.1 L, Chloride 114 H, Carbon Dioxide 20.0 L, Anion Gap 7, BUN 14, Creatinine 0.74, Estim Creat Clear Calc 96.69, Est GFR (MDRD) Af Amer 122, Est GFR (MDRD) Non-Af 101, BUN/Creatinine Ratio 18.9, Glucose 144 H, Calcium 8.7 10/17/23 09:31: POC Glucose 132 H 10/17/23 10:46: POC Glucose 97 10/17/23 12:56: POC Glucose 254 H D/C Instructions Discharge Diet: - (Resume previous diet) Return to work on: 10/20/23 Weight Bearing Status: Full weight bearing Meaningful Use Info Meaningful Use Diagnoses (Choose all that apply): None applicable Discharge Plan Admission Admit Date/Time: 10/16/23 17:37 Primary Reason for Your Visit: Diabetic ketoacidosis Attending Provider: Jesus Pineda Primary Care Provider: Minnie Hodge Consulting Providers: Jopperi,Damien Instructions Additional Instructions / Restrictions: Please increase your fluid intake over the next 24 to 48 hours Contact your meal room hand on Friday to get refills on your insulin pump supplies Discharge Orders/Prescriptions Prescriptions: Continued hydroxyzine pamoate [Vistaril] 25 mg capsule 25 mg PO QHS Qty: 30 6RF (DME) Dexcom G6 Sensor Device See Rx Instructions .Route Qty: 9 1RF Rx Instructions: 1 sensor q 10 days albuterol sulfate [Ventolin HFA] 18 GM HFA aerosol inhaler 2 puff inhalation Q4H PRN (Reason: SHORTNES OF BREATH/WHEEZING) fluticasone propionate 50 mcg/actuation spray,suspension 2 spray INTRANASAL DAILY (DME) Dexcom G6 Transmitter Device See Rx Instructions .Route Qty: 1 3RF Rx Instructions: As directed (DME) pen needle, diabetic [BD Ultra-Fine Opal Pen Needle] 32 gauge x 5/32 needle See Rx Instructions .ROUTE .MEDSUPPLY Qty: 120 5RF Rx Instructions: 4 times daily (DME) Ketone Urine Test Strip See Rx Instructions .ROUTE .MEDSUPPLY Qty: 50 1RF Rx Instructions: once/day (DME) Dexcom G6 Transmitter Device See Rx Instructions .Route Qty: 1 1RF Rx Instructions: As directed (DME) Omnipod 5 G6 Intro Kit (Gen 5) Cartridge See Rx Instructions .Route Qty: 1 0RF Rx Instructions: As directed (DME) Omnipod 5 G6 Pods (Gen 5) Cartridge See Rx Instructions .Route Qty: 45 1RF Rx Instructions: change every 48-72 hours Discontinued insulin glargine [Basaglar KwikPen U-100 Insulin] 100 unit/mL (3 mL) insulin pen 20 unit subcut QHS insulin aspart U-100 [Novolog FlexPen U-100 Insulin] 100 unit/mL (3 mL) insulin pen 15 unit subcut TID Qty: 40.5 1RF Referrals / Follow Up: Minnie Hodge [Primary Care Provider] - Disposition Disposition (needs filled in before D/C Order can be placed): Home, Self Care Charges/Coding Visit Charges Inpatient E&M: 52736 Disch Hosp >30min
== END 2023-10-17 15:27 | disposition home or self-care (01) | DRG 639 ==
LOC: ED 17:21 → ICU 18:41
PROVIDERS: Emergency Provider Emergency Medicine; Visit Provider Internal Medicine
DX: E10.10 Type 1 diabetes mellitus with ketoacidosis without coma (principal); Z79.4 Long term (current) use of insulin; Z79.51 Long term (current) use of inhaled steroids; Z79.899 Other long term (current) drug therapy; Z96.41 Presence of insulin pump (external) (internal)
CPT/HCPCS: 36415; 80048; 81001; 82009; 82962; 83036; 83735; 84703; 85025; 93005; 99285; J7030; A4216; J2405; J7799

== ENCOUNTER 2023-11-11 02:48 | Emergency (ER) | payer OTHER, SELFPAY ==
[2023-11-11 02:49] VITALS: BP 142/74; PULSE 89; RESP 18; TEMP 36.4; O2SAT 97; BMI 31.8
--- NOTE | 2023-11-11 04:08 | EX.ED.DYSGE1 ---
HPI History of Present Illness Chief Complaint: Foreign Body Informant: patient Narrative Narrative: Patient is a 23-year-old female with history of type 1 diabetes. She states roughly 1 to 2 hours prior to arrival she was drinking a pop because her sugar was low. She states as she was doing this the can cut her lip ring and yanked the stud into her lip tissue. She states she tried to get the ring out at home but was unsuccessful and therefore comes to the hospital for evaluation. [facility] Medical History Anxiety and depression Asthma Cannabis hyperemesis syndrome concurrent with and due to cannabis abuse Diabetes type 1, controlled DKA, type 1 History of marijuana use Hypokalemia Hypophosphatemia Implanon in place Insulin pump titration Presence of insulin pump Home Medications albuterol sulfate 90 mcg/actuation aerosol inhaler (Ventolin HFA) 2 puff inhalation Q4H PRN SHORTNES OF BREATH/WHEEZING 08/25/18 [History Last Taken 03/02/23] Ketone Urine Test (acetone (urine) test) #50 ea 11/05/21 [Rx Last Taken Unknown] fluticasone propionate 50 mcg/actuation nasal spray,suspension 2 spray intranasal DAILY NASAL CONGESTION 11/21/22 [History Last Taken 02/12/23] pen needle, diabetic 32 gauge x 5/32 (BD Ultra-Fine Opal Pen Needle) #120 ea 11/23/22 [Rx Last Taken Unknown] hydroxyzine pamoate 25 mg capsule (Vistaril) 25 mg PO QHS ITCHING #30 caps 01/13/23 [Rx Last Taken 02/12/23] insulin pump cartridge,automated dose,BT with controller subcutaneous (Omnipod 5 G6 Intro Kit (Gen 5) subcutaneous cartridge with controller) #1 ea 08/15/23 [Rx Last Taken Unknown] blood-glucose sensor (Dexcom G6 Sensor device) #9 ea 11/10/23 [Rx Last Taken Unknown] blood-glucose transmitter (Dexcom G6 Transmitter device) #1 ea 11/10/23 [Rx Last Taken Unknown] insulin aspart U-100 100 unit/mL subcutaneous solution 100 unit subcut ONCE #90 mL 11/10/23 [Rx Last Taken Unknown] insulin pump cart,automated,BT (Omnipod 5 G6 Pods (Gen 5) subcutaneous cartridge) #45 ea 11/10/23 [Rx Last Taken Unknown] amoxicillin 875 mg-potassium clavulanate 125 mg tablet 1 tab PO BID 7 days #14 tabs 11/11/23 [Rx Last Taken Unknown] oxycodone-acetaminophen 5 mg-325 mg tablet (Percocet) 1 tab PO Q6H PRN pain 3 days #12 tabs 11/11/23 [Rx Last Taken Unknown] Allergy/AdvReac Type Severity Reaction Status Date / Time bee venom protein (honey bee) Allergy Severe Anaphylaxis Verified 11/11/23 02:48 [bee stings] Penicillins Allergy Unknown Verified 11/11/23 02:48 Sulfa (Sulfonamide Allergy Unknown Verified 11/11/23 02:48 Antibiotics) prednisone AdvReac Vomiting Verified 11/11/23 02:48 Family History Grandmother Diabetes Sister Asthma Brother Asthma Mother Heart disease Surgical History History of placement of ear tubes Social History household members: family Smoking Status: Never smoker second hand exposure: No alcohol intake: never substance use type: other details: Cannabis, last use ~ 1 month prior, ingested. ROS ROS ED Constitutional Constitutional ED: Denies chills or fever(s) ENT ENT ED: Reports other Details: Positive left lower lip swelling/pain with retained foreign body ; Denies sore throat Cardiovascular Cardiovascular: Denies chest pain Respiratory/Chest Respiratory/Chest: Denies cough or dyspnea Gastrointestinal Gastrointestinal: Denies abdominal pain, diarrhea, nausea or vomiting Genitourinary Genitourinary ED: Denies dysuria Musculoskeletal Musculoskeletal: Denies myalgias Integumentary Reports other Details: Soft tissue swelling to the left lower lip as documented above ; Denies rash Neurologic Neurologic: Denies headache(s) Hematologic/Lymphatic Hematologic/Lymphatic: Denies easy bleeding or easy bruising EXAM Physical Exam Const Vital Signs: 11/11/23 02:49 Temperature 97.6 F L Temperature Source Temporal Pulse Rate 89 Respiratory Rate 18 Blood Pressure 142/74 H Blood Pressure Mean 96 Pulse Ox 97 Positive well nourished and well developed General Appearance ED: well developed HEENT Reports moist mucous membranes HEENT Narrative: There is soft tissue swelling of the left lower lip with palpable retained foreign body consistent with patient's history. No surrounding erythema or warmth no purulent discharge to suggest infection no lymphangitic streaking. Eyes PERRL and EOMs intact bilaterally Neck supple Resp normal respiratory effort and clear to auscultation bilaterally Cardio regular rate and regular rhythm Extremity normal to inspection Neuro oriented x3, CN's II-XII intact bilaterally and no sensory deficits noted Sensorium / Orientation: alert Motor Exam: strength 5/5 throughout Psych mental status grossly normal Skin Skin Narrative: Soft tissue swelling of the left lower lip as documented above MDM MDM MDM Narrative Medical decision making narrative: Patient presented to the ER slightly hypertensive otherwise with stable vitals. She reported a mechanical injury to her lip ring when she was drinking pop and now the ring is lodged within the soft tissue of the left lower lip. With the patient's history of type 1 diabetes she is at risk for developing a secondary infection from the retained foreign body. Therefore patient had the lower lip cleaned with chlorhexidine and the area was anesthetized using 3 mL of 1% lidocaine without epinephrine and local fashion. A #11 blade was used to make 1/4 cm incision at the opening of the lip piercing. Forceps were then used to force the ring through the posterior aspect of the piercing hole and the piece was removed and 1 complete section. Patient tolerated the procedure well without complication. As patient is high risk for infection based on the retained foreign body and procedure because of her type 1 diabetes she will be placed on Augmentin for infection prophylaxis however at this time without signs of systemic infection or airway compromise and the fact the foreign body has been removed she is otherwise safe for discharge History & Record Review Discussion w/independent historian: Patient Discharge Plan Triage Chief Complaint: Foreign Body ED Provider: Sunil Mina Dx/Rx/DC Orders Clinical Impression: Metal foreign body in lip, Type 1 diabetes mellitus Instructions: ED Foreign Body Soft Tissue Prescriptions: New amoxicillin-pot clavulanate 875-125 mg tablet 1 tab PO BID 7 Days Qty: 14 0RF oxycodone-acetaminophen [Percocet] 5-325 mg tablet 1 tab PO Q6H PRN (Reason: pain) 3 Days Qty: 12 0RF No Action hydroxyzine pamoate [Vistaril] 25 mg capsule 25 mg PO QHS Qty: 30 6RF insulin aspart U-100 100 unit/mL solution 100 unit subcut ONCE Qty: 90 0RF (DME) Dexcom G6 Sensor Device See Rx Instructions .Route Qty: 9 0RF Rx Instructions: 1 sensor q 10 days (DME) Dexcom G6 Transmitter Device See Rx Instructions .Route Qty: 1 0RF Rx Instructions: As directed (DME) Omnipod 5 G6 Pods (Gen 5) Cartridge See Rx Instructions .Route Qty: 45 0RF Rx Instructions: change every 48-72 hours albuterol sulfate [Ventolin HFA] 18 GM HFA aerosol inhaler 2 puff inhalation Q4H PRN (Reason: SHORTNES OF BREATH/WHEEZING) fluticasone propionate 50 mcg/actuation spray,suspension 2 spray INTRANASAL DAILY (DME) pen needle, diabetic [BD Ultra-Fine Opal Pen Needle] 32 gauge x 5/32 needle See Rx Instructions .ROUTE .MEDSUPPLY Qty: 120 5RF Rx Instructions: 4 times daily (DME) Ketone Urine Test Strip See Rx Instructions .ROUTE .MEDSUPPLY Qty: 50 1RF Rx Instructions: once/day (DME) Omnipod 5 G6 Intro Kit (Gen 5) Cartridge See Rx Instructions .Route Qty: 1 0RF Rx Instructions: As directed Primary Care Provider: Minnie Hodge Referrals: Minnie Hodge [Primary Care Provider] - Activity Restrictions/Additional Instructions: Please take the antibiotic as directed to prevent any secondary infection because of your immunocompromise status from your type 1 diabetes. Return to the ER should you have any further concerns or worsening of symptoms Disposition Disposition: Home, Self Care Discharge Date/Time: 11/11/23 04:21
[2023-11-11] MEDS: Amox/Clavulanate 875 MG Tablet PO (04:16)
== END 2023-11-11 04:21 | disposition home or self-care (01) ==
PROVIDERS: Emergency Provider Emergency Medicine; Visit Provider Emergency Medicine
DX: S00.551A Superficial foreign body of lip, initial encounter (principal); E10.9 Type 1 diabetes mellitus without complications; X58.XXXA Exposure to other specified factors, initial encounter
CPT/HCPCS: 99282

== ENCOUNTER 2023-11-25 22:57 | Inpatient (IN) | payer OTHER, SELFPAY ==
[2023-11-25 22:58] VITALS: BP 128/83; PULSE 128; RESP 16; TEMP 36.4; O2SAT 100; BMI 29.2
--- NOTE | 2023-11-25 23:04 | ED.RN ---
PT BGL 486, PT GAVE HERSELF 14 UNITS OF INSULIN VIA PUMP
[2023-11-25 23:22] LABS: Bedside Glucose 486 mg/dL (74-106)
[2023-11-26] VITALS (35 sets, daily range): BP systolic 107–158; BP diastolic 67–100; PULSE 91–155; RESP 11–29; TEMP 36.4–37.2; O2SAT 97–100; BMI 28.3
[2023-11-26] LABS: Bedside Glucose 415 mg/dL (74-106)
[2023-11-26] MEDS: Morphine 4 MG/ML Syringe IV (00:45)
[2023-11-26] MEDS: Ondansetron 4 MG/2 ML Vial IV ×3 (00:45→22:11)
[2023-11-26] MEDS: 0.9% Normal Saline (1000mL) 1,000 ML 999 ML IV (00:56)
[2023-11-26 01:06] LABS: Blood Gas Specimen Type VEN; O2 Delivery Device Room Air; SITE Not entered; VBG BASE EXCESS -22 mmol/L (-1.0-3.5); VBG Bicarbonate 7 mmol/L (22-26); VBG PO2 102 mmHg (25-40); VBG SO2 96 % (50-70); VBG TCO2 8 mmol/L (23-33); VBG pCO2 19.1 mmHg (41-51); VBG pH 7.17 (7.32-7.42)
[2023-11-26 01:13] LABS: Absolute Lymphocyte Count 0.84 X10^3/uL (0.83-4.51); Absolute Neutrophil Count 22.5 X10^3/uL (2.0-7.7); Basophil# 0.07 X10^3/uL; Basophil% 0.3 % (0-1); Hematocrit 48.7 % (37-47); Hemoglobin 15.7 g/dL (12.0-15.0); Lymphocyte # 0.84 X10^3/ul (0.83-4.51); Lymphocyte % 3.4 % (19-41); Mean Corp Hgb Conc 32.2 g/dL (32-36); Mean Corpuscular Hgb 27.9 pg (27.0-32.0); Mean Corpuscular Volume 86.7 fL (81-99); Mean Platelet Vol. 9.4 fl (6.2-12.0); Monocyte# 0.59 X10^3/uL; Monocyte% 2.4 % (0-10); NRBC Flagged by Analyzer 0 % (0-5); Neutrophil # 22.54 X10^3/uL (2.7-7.7); Neutrophil % 91.9 % (47-70); POSITIVE DIFFERENTIAL YES; Platelet Count 444 K/mm3 (150-450); RBC Distribution Width CV 13.1 % (11.6-14.6); RBC Distribution Width SD 41.1 fl (35.1-43.9); Red Blood Count 5.62 M/mm3 (4.2-5.4); White Blood Count 24.5 K/mm3 (4.4-11.0)
[2023-11-26 01:20] LABS: Bacteria 0 SEEN /hpf (None Seen); Mucous, Urine 0 SEEN /hpf (<or=2+); Red Blood Cells-Urine 0 SEEN /hpf (0-5); Squamous Epithelial Cells - UA 0 SEEN /hpf (5-10); White Blood Cells 0 SEEN /hpf (0-5)
[2023-11-26 01:22] LABS: Differential Indicated SCAN CRITERIA MET
[2023-11-26 01:24] LABS: Color, Urine Yellow (Yellow); Glucose, Dipstick 1000 mg/dl (Normal); Leukocyte Esterase-Dipstick Negative /ul (Negative); Nitrite-Dipstick Negative (Negative); Occult Blood-Urine 10 /ul (Negative); Protein-Dipstick 100 mg/dl (Negative); Specific Gravity, Urine 1.025 (1.002-1.030); Urine Bilirubin Dipstick Negative (Negative); Urine Clarity Clear (Clear); Urine Urobilinogen Normal (Normal)
--- NOTE | 2023-11-26 01:25 | HP.PCM.HOS_ITS ---
[facility] General Date of Service: 11/26/23 Chief Complaint: Hyperglycemia with Nausea and Vomiting. [facility] N[facility]ALIE DESIR, is a 23 F with a past medical history of being overweight; with BMI of 29.3 this admission, history of asthma, history of hepatitis A, history of medical noncompliance, depression with anxiety, history of cannabis abuse, history of DKA and DM-1 (since age 8); uncontrolled with hyperglycemia in spite of insulin pump in place who presents to [facility] ER complaining of hyperglycemia. Ms. Gonzalez reports her symptoms began approximately 1 to 2 hours prior to arrival with patient drinking a soda because her sugar was low. She further explained that she was at work when her insulin pump was apparently empty and needed to be refilled and then when she got home it was late and she fell asleep without replacing it and then woke up with intractable nausea and vomiting in spite of multiple boluses of insulin. She also states she recently inadvertently cut her lip ring and yanked the stud into her lip tissue and this also caused her to come to the hospital last week for further evaluation and treatment with patient now having finished her course of prophylactic oral Augmentin. In the ER she was noted to have hyperglycemia of 424 mg/dL present on admission complicated by DKA with VBG showing pH of 7.17 /pCO2 8/pO2 102/HCO3 7 @96% on RA with additional laboratory evidence of moderate serum acetone and leukocytosis of 24.5 present on admission; with CT scan of the abdomen pelvis this admission revealing evidence of colitis and possible early acute appendicitis and she was them admitted to the ICU for ongoing care for status expected to be greater than 2 midnights. [facility] Medical History Anxiety and depression Asthma Cannabis hyperemesis syndrome concurrent with and due to cannabis abuse Diabetes type 1, controlled Diabetic ketoacidosis DKA, type 1 History of marijuana use Hypokalemia Hypophosphatemia Implanon in place Insulin pump titration Presence of insulin pump Tachycardia Home Medications albuterol sulfate 90 mcg/actuation aerosol inhaler (Ventolin HFA) 2 puff inhalation Q4H PRN SHORTNES OF BREATH/WHEEZING 08/25/18 [History Last Taken 03/02/23] Ketone Urine Test (acetone (urine) test) #50 ea 11/05/21 [Rx Last Taken Unknown] fluticasone propionate 50 mcg/actuation nasal spray,suspension 2 spray intranasal DAILY NASAL CONGESTION 11/21/22 [History Last Taken 02/12/23] pen needle, diabetic 32 gauge x 5/32 (BD Ultra-Fine Opal Pen Needle) #120 ea 11/23/22 [Rx Last Taken Unknown] hydroxyzine pamoate 25 mg capsule (Vistaril) 25 mg PO QHS ITCHING #30 caps 01/13/23 [Rx Last Taken 02/12/23] insulin pump cartridge,automated dose,BT with controller subcutaneous (Omnipod 5 G6 Intro Kit (Gen 5) subcutaneous cartridge with controller) #1 ea 08/15/23 [Rx Last Taken Unknown] blood-glucose sensor (Dexcom G6 Sensor device) #9 ea 11/10/23 [Rx Last Taken Unknown] blood-glucose transmitter (Dexcom G6 Transmitter device) #1 ea 11/10/23 [Rx Last Taken Unknown] insulin aspart U-100 100 unit/mL subcutaneous solution 100 unit subcut ONCE #90 mL 11/10/23 [Rx Last Taken Unknown] insulin pump cart,automated,BT (Omnipod 5 G6 Pods (Gen 5) subcutaneous cartridge) #45 ea 11/10/23 [Rx Last Taken Unknown] amoxicillin 875 mg-potassium clavulanate 125 mg tablet 1 tab PO BID 7 days #14 tabs 11/11/23 [Rx Last Taken Unknown] oxycodone-acetaminophen 5 mg-325 mg tablet (Percocet) 1 tab PO Q6H PRN pain 3 days #12 tabs 11/11/23 [Rx Last Taken Unknown] Allergy/AdvReac Type Severity Reaction Status Date / Time bee venom protein (honey bee) Allergy Severe Anaphylaxis Verified 11/25/23 23:00 [bee stings] Penicillins Allergy Unknown Verified 11/25/23 23:00 Sulfa (Sulfonamide Allergy Unknown Verified 11/25/23 23:00 Antibiotics) prednisone AdvReac Vomiting Verified 11/25/23 23:00 Family History Grandmother Diabetes Sister Asthma Brother Asthma Mother Heart disease Surgical History History of placement of ear tubes Social History household members: family Smoking Status: Never smoker second hand exposure: No alcohol intake: never substance use type: other details: Cannabis, last use ~ 1 month prior, ingested. ROS ROS Narrative Review of systems: General: Patient denies fevers or chills. HENT: Denies headache, denies stuffy nose, denies sore throat EYES: Denies changes in vision or discharge from eyes. Resp: Denies cough, denies shortness of breath Cardiac: Denies chest pain, palpitations or heart racing. GI: Patient admits to nausea and bilious emesis with intermittent generalized abdominal pain as per HPI. : Patient admits to increased urination but denies dysuria or hematuria. Extremity: Denies swelling Musculoskeletal: Feels somewhat generally weak and unwell but denies arthralgias or myalgias. Neuro: Patient denies headache, paresthesias or focal neurologic weakness. Heme: Denies any bleeding or bruising Skin: Denies rashes Psychiatric: No complaints voiced related to uncontrolled depression or anxiety. Endocrine: No polyuria, polydipsia or polyphagia. The rest of the 14 point ROS was negative except for positives in HPI. Vital Signs Vital Signs Vital Signs: 11/25/23 22:58 11/25/23 23:38 11/26/23 00:00 Temperature 97.6 F L 98.7 F Temperature Source Temporal Oral Pulse Rate 128 H 116 H Respiratory Rate 16 18 Respiratory Effort Normal Respiratory Pattern Normal Blood Pressure 128/83 H 158/83 H Blood Pressure Mean 98 108 Pulse Ox 100 99 Oxygen Delivery Method Room Air Room Air 11/26/23 01:00 Temperature 98.9 F Temperature Source Oral Pulse Rate 115 H Respiratory Rate 19 H Respiratory Effort Respiratory Pattern Blood Pressure 144/87 H Blood Pressure Mean 106 Pulse Ox 98 Oxygen Delivery Method Room Air Weight Weight: 145 lb Body Mass Index (BMI) 29.2 Physical Exam Const alert, oriented x3, no apparent distress and average body habitus General Appearance: cooperative HEENT normocephalic, head/scalp atraumatic and hearing grossly normal bilaterally HEENT Narrative: Mucous membranes dry. Eyes PERRL and EOMs intact bilaterally Neck no lymphadenopathy and supple Resp normal respiratory effort, no retractions, no use of accessory muscles and clear to auscultation bilaterally Cardio regular rate and regular rhythm GI normal to inspection, nondistended, normoactive bowel sounds, soft to palpation, non-tender and non-distended Extremity normal to inspection, full ROM and no clubbing, cyanosis or edema Skin Skin Narrative: Patient has no evidence of abscess, jaundice or rash. Neuro oriented x3, CN's II-XII intact bilaterally, moves all extremities and no focal motor deficits Sensorium / Orientation: awake, alert, oriented to person, oriented to place and oriented to time Speech: speech normal Motor Exam: strength 5/5 throughout Psych affect normal Results Medical Records Data Attestation: I reviewed the patient's medical records Lab / Micro Data Attestation: I reviewed the patient's lab results. 11/26/23 00:54 11/26/23 00:54 Labs: Laboratory Results - last 24 hr 11/25/23 23:02: POC Glucose 486 H* 11/25/23 23:42: POC Glucose 415 H 11/26/23 00:54: WBC 24.5 H, RBC 5.62 H, Hgb 15.7 H, Hct 48.7 H, MCV 86.7, MCH 27.9, MCHC 32.2, RDW Std Deviation 41.1, RDW Coeff of Marilynn 13.1, Plt Count 444, MPV 9.4, Immature Gran % (Auto) 2.000 H, Neut % (Auto) 91.9 H, Lymph % (Auto) 3.4 L, [place] % (Auto) 2.4, Eos % (Auto) 0.0, Baso % (Auto) 0.3, Absolute Neuts (auto) 22.5 H, Absolute Lymphs (auto) 0.84, Nucleated RBC % 0, Acetone Level MODERATE H ABG Data ABG results: ABG 11/26/23 01:01 Specimen Type LUIS Sample Site Not entered VBG pH 7.17 L* VBG pO2 102 H VBG HCO3 7 L VBG Total CO2 8 L VBG O2 Sat (Calc) 96 H VBG Base Excess -22 L POC Mix VBG pCO2 Pt Tmp 19.1 L O2 Delivery Device Room Air Crit Call To/Read Back Yes Blood Gas Notified Whom Dr. Mina Blood Gas Notified Time 01:02:40 Imaging [facility] Imaging Services [address] [place] [id number] Abdomen/Pelvis without Cont MR#: [id number] Acct: [id number] Name: KALIE DESIR Rep #: [id number] : 2000 F 23 From: Anna Enriquez MD PCP: Minnie Hodge Status: REG ER Study: Abdomen/Pelvis without Cont Date of Exam: 11/26/23 Exam# [id number] Ordering Dr: Sunil Mina DO EXAM: CT ABDOMEN AND PELVIS WITHOUT INTRAVENOUS CONTRAST CLINICAL INDICATION: abd pain TECHNIQUE: Helically acquired images were obtained of the abdomen and pelvis without intravenous contrast. This CT exam was performed using one or more of the following dose reduction techniques: automated exposure control, adjustment of the mA and/or kV according to patient size, and/or use of iterative reconstruction technique. RADIATION DOSE: CTDIvol = 6.66 mGy, DLP = 329.29 mGy-cm COMPARISON: March 02, 2023, mentioned findings suspicious for esophagitis. FINDINGS: LOWER THORAX: Unremarkable. Lung bases are clear. No cardiomegaly. No significant pericardial effusion. ABDOMEN: LIVER: Unremarkable. Homogeneous. GALLBLADDER AND BILE DUCTS: Unremarkable. No calcified gallstones. No gallbladder distention or wall edema. No intra- or extrahepatic biliary ductal dilation. PANCREAS: Unremarkable. No focal cystic mass. SPLEEN: Unremarkable. Normal size without focal cystic or solid mass. ADRENALS: Unremarkable. No nodules. KIDNEYS AND URETERS: Unremarkable. Normal renal size and position. No hydronephrosis. STOMACH AND BOWEL: Mild fluid and gas in the stomach. Most of the small bowel loops are collapsed. Collapsed and mildly thick-walled appearance most of the colon, with mild stool in the rectum. Suspicion of early or mild colitis in the appropriate clinical setting. No stomach or bowel distention. PELVIS: APPENDIX: Tortuous appendix, best seen on coronal images 43 through 39, tip not well seen medial to the right iliac vessels. Proximal appendix measures 6.5 mm on coronal image #43. Mid appendix is gasless and measures 7 mm on coronal image #40 without surrounding inflammation. Mid appendix measures 5 mm on axial image #116. The cecum was previously low lying the appendix was gasless and roughly 5 mm on prior exam. BLADDER: Moderately distended and thin walled appearance of the urinary bladder. REPRODUCTIVE: Unremarkable as visualized. No mass. ABDOMEN and PELVIS: INTRAPERITONEAL SPACE: Unremarkable. No ascites or other fluid collection. No free air. BONES/JOINTS: Unremarkable. No suspicious lytic or blastic abnormality. SOFT TISSUES: Unremarkable. No discrete abdominal or pelvic wall hernia. VASCULATURE: Unremarkable. Abdominal aorta is non-dilated. LYMPH NODES: Mild mesenteric adenopathy and multiple mildly prominent retroperitoneal lymph nodes appear similar to prior exam. CT/Abdomen/Pelvis without Cont IMPRESSION: 1. Collapsed and questionably mildly thick-walled appearance of most of the colon. Correlate with any leukocytosis or diarrhea. Possible early or mild colitis. 2. Borderline gasless appendix, measurements of 5 mm to 7 mm. No surrounding inflammation to confirm acute appendicitis. Cannot exclude very early appendicitis. 3. No free fluid. 4. Small retroperitoneal and mesenteric lymph nodes, stable. Electronically Signed: Anna Enriquez MD at 4:17 EDT Reading Location ID and State: [facility] / [place] Tel , Service support , CC: Minnie Hodge; Sunil Mina DO ~ Section Hand Helper: Signed Assessment & Plan Assessment/Plan (1) DKA (diabetic ketoacidosis): QUALIFIERS: Diabetes mellitus complication detail: without coma Diabetes mellitus type: type 1 Qualified Code(s): E10.10 - Type 1 diabetes mellitus with ketoacidosis without coma (2) Type 1 diabetes mellitus with hyperglycemia: (3) Non-compliance: (4) Acute colitis: (5) Appendicitis: QUALIFIERS: Appendicitis type: unspecified Qualified Code(s): K37 - Unspecified appendicitis PLAN: Plan 1. DKA; evidenced by hyperglycemia of 424 mg/dL with pH of 7.17 and moderate serum acetone present on admission - Admit to ICU for treatment under DKA protocol. Continue IV insulin drip and change IV fluid to D5 half-normal saline with 20 meq of potassium chloride when sugar is below 250 mg/dL. Give Zofran IV as needed nausea and vomiting. We will consult clinical dietitian to see patient on rounds in the a.m. for further teaching to help prevent serial readmission with help appreciated in advance. 2. DM-1; uncontrolled with hyperglycemia with reported insulin pump malfunction in the setting of known previous medical noncompliance and previous bouts of DKA complicating #1 - Hold insulin pump while patient is on IV insulin drip. Patient would likely benefit from further teaching about how to use her pump to prevent serial readmission. 3. CT evidence of colitis with possible early appendicitis with leukocytosis 24.5 present on admission compounding #1 & #2 - Start empiric IV Levaquin and IV Flagyl given patient's documented PCN allergy and check stool studies. Finally, we will consult general surgery to see this patient on-rounds in the AM for further recommendations with help appreciated in advance. 4. Overweight; with BMI of 29.3 this admission - Weight loss will be recommended. 5. History of asthma - Stable with no evidence of acute flare. Continue prn nebulizers. 6. History of hepatitis A - Noted. 7. Depression with anxiety - Continue home regimen plus give prn Vistaril for breakthrough symptoms. 8. History of cannabis abuse - Cannabis cessation will be strongly encouraged. 9. DVT prophylaxis - Lovenox 40 mg sq daily. Total time: Approximately 75 minutes. Charges/Coding Visit Charges Inpatient E&M: 55218 Init Hosp L3
[2023-11-26 01:27] LABS: Internal QC Validated? YES +Cl - CLEAR BKGD; Pregnancy, Urine Negative Negative
[2023-11-26 01:31] LABS: Ketone-Dipstick 150 mg/dl (Negative)
[2023-11-26 01:42] LABS: AST(SGOT) 17 U/L (15-37); Alanine Aminotransfer ALT/SGPT 18 U/L (13-56); Albumin, Serum 4.8 g/dL (3.2-5.0); Alkaline Phosphatase 116 U/L (45-117); Anion Gap 27 (5-15); BUN 20 mg/dL (7-18); Bilirubin, Direct 0.17 mg/dL (0.00-0.30); Calcium,Total 9.6 mg/dL (8.5-10.1); Chloride 103 mmol/L (98-107); EST Glomerular Filtration Rate 71 mL/min (>60); Est Glom Filt Rate - Afr Amer 86 mL/min (>60); Estimated Creatinine Clearance 72.78 ml/min; Globulin 3.8 g/dL (2.2-4.2); Glucose 424 mg/dL (74-106); Lipase 13 U/L (13-75); Potassium 3.8 mmol/L (3.5-5.1); Protein, Total 8.6 g/dL (6.4-8.2); Sodium Level 137 mmol/L (136-145)
--- NOTE | 2023-11-26 01:52 | EDS_ITS ---
HPI History of Present Illness Chief Complaint: Hyperglycemia Informant: patient Narrative Narrative: Patient is a 23-year-old female with history of type 1 diabetes. She states that her insulin pump stopped working yesterday and after returning from work she was tired and went to bed and spent approximately 6 hours without the pump on. She states when she awoke she had generalized abdominal discomfort with bouts of nausea and vomiting. She states she checked her sugar and it was elevated and so she gave herself insulin. She states she has been trying to control her symptoms throughout the day but has not had any improvement and with concern she is developing DKA she comes into the hospital for evaluation [facility] Medical History Anxiety and depression Asthma Cannabis hyperemesis syndrome concurrent with and due to cannabis abuse Diabetes type 1, controlled Diabetic ketoacidosis DKA, type 1 History of marijuana use Hypokalemia Hypophosphatemia Implanon in place Insulin pump titration Presence of insulin pump Tachycardia Home Medications albuterol sulfate 90 mcg/actuation aerosol inhaler (Ventolin HFA) 2 puff inhalation Q4H PRN SHORTNES OF BREATH/WHEEZING 08/25/18 [History Last Taken 03/02/23] Ketone Urine Test (acetone (urine) test) #50 ea 11/05/21 [Rx Last Taken Unknown] fluticasone propionate 50 mcg/actuation nasal spray,suspension 2 spray intranasal DAILY NASAL CONGESTION 11/21/22 [History Last Taken 02/12/23] pen needle, diabetic 32 gauge x 5/32 (BD Ultra-Fine Opal Pen Needle) #120 ea 11/23/22 [Rx Last Taken Unknown] hydroxyzine pamoate 25 mg capsule (Vistaril) 25 mg PO QHS ITCHING #30 caps 01/13/23 [Rx Last Taken 02/12/23] insulin pump cartridge,automated dose,BT with controller subcutaneous (Omnipod 5 G6 Intro Kit (Gen 5) subcutaneous cartridge with controller) #1 ea 08/15/23 [Rx Last Taken Unknown] blood-glucose sensor (Dexcom G6 Sensor device) #9 ea 11/10/23 [Rx Last Taken Unknown] blood-glucose transmitter (Dexcom G6 Transmitter device) #1 ea 11/10/23 [Rx Last Taken Unknown] insulin aspart U-100 100 unit/mL subcutaneous solution 100 unit subcut ONCE #90 mL 11/10/23 [Rx Last Taken Unknown] insulin pump cart,automated,BT (Omnipod 5 G6 Pods (Gen 5) subcutaneous cartridge) #45 ea 11/10/23 [Rx Last Taken Unknown] amoxicillin 875 mg-potassium clavulanate 125 mg tablet 1 tab PO BID 7 days #14 tabs 11/11/23 [Rx Last Taken Unknown] oxycodone-acetaminophen 5 mg-325 mg tablet (Percocet) 1 tab PO Q6H PRN pain 3 days #12 tabs 11/11/23 [Rx Last Taken Unknown] Allergy/AdvReac Type Severity Reaction Status Date / Time bee venom protein (honey bee) Allergy Severe Anaphylaxis Verified 11/25/23 23:00 [bee stings] Penicillins Allergy Unknown Verified 11/25/23 23:00 Sulfa (Sulfonamide Allergy Unknown Verified 11/25/23 23:00 Antibiotics) prednisone AdvReac Vomiting Verified 11/25/23 23:00 Family History Grandmother Diabetes Sister Asthma Brother Asthma Mother Heart disease Surgical History History of placement of ear tubes Social History household members: family Smoking Status: Never smoker second hand exposure: No alcohol intake: never substance use type: other details: Cannabis, last use ~ 1 month prior, ingested. ROS ROS ED Constitutional Constitutional ED: Denies chills or fever(s) Eyes Eyes: Denies change in vision ENT ENT ED: Reports sore throat Cardiovascular Cardiovascular: Denies chest pain Respiratory/Chest Respiratory/Chest: Denies cough or dyspnea Gastrointestinal Gastrointestinal: Reports abdominal pain, nausea and vomiting; Denies diarrhea Genitourinary Genitourinary ED: Denies dysuria Musculoskeletal Musculoskeletal: Reports myalgias Integumentary Denies rash Neurologic Neurologic: Denies headache(s) Hematologic/Lymphatic Hematologic/Lymphatic: Denies easy bleeding or easy bruising EXAM Physical Exam Const Vital Signs: 11/25/23 22:58 11/25/23 23:38 11/26/23 00:00 Temperature 97.6 F L 98.7 F Temperature Source Temporal Oral Pulse Rate 128 H 116 H Respiratory Rate 16 18 Respiratory Effort Normal Respiratory Pattern Normal Blood Pressure 128/83 H 158/83 H Blood Pressure Mean 98 108 Pulse Ox 100 99 Oxygen Delivery Method Room Air Room Air 11/26/23 01:00 11/26/23 02:00 11/26/23 02:00 Temperature 98.9 F 98.0 F Temperature Source Oral Temporal Pulse Rate 115 H 110 H 110 H Respiratory Rate 19 H 21 H 21 H Respiratory Effort Respiratory Pattern Blood Pressure 144/87 H 141/78 H 141/78 H Blood Pressure Mean 106 99 99 Pulse Ox 98 100 100 Oxygen Delivery Method Room Air Room Air Room Air 11/26/23 03:00 11/26/23 04:00 11/26/23 05:50 Temperature 97.8 F 98.1 F Temperature Source Temporal Temporal Pulse Rate 125 H 127 H 110 H Respiratory Rate 18 21 H 16 Respiratory Effort Respiratory Pattern Blood Pressure 130/74 H 132/85 H 154/92 H Blood Pressure Mean 92 100 112 Pulse Ox 97 97 99 Oxygen Delivery Method Room Air Room Air Room Air Positive well nourished and well developed General Appearance ED: well developed; Negative for pallor HEENT Reports dry mucous membranes HEENT Narrative: There is mild erythema on the posterior pharynx without exudates trismus change in voice or difficulty with secretions No tongue or lip swelling noted Mucous membranes are dry and tacky Mouth ED: Yes dry mucous membranes Mouth: dry mucous membranes Eyes PERRL and EOMs intact bilaterally General Eye ED: Negative for scleral icterus Neck supple Neck Narrative: No nuchal rigidity or meningeal signs Chest Wall palpation of chest normal Resp normal respiratory effort and clear to auscultation bilaterally Cardio regular rhythm Rate: tachycardic and other Other Details: Tachycardic rate with regular rhythm Radial and carotid pulses are equal and symmetric GI non-distended GI Narrative: Abdomen is soft and nondistended with hyperactive bowel sounds. There is pain on palpation in the midline to suprapubic region that extends towards the left side of the abdomen. However no voluntary guarding or rigidity No pulsatile mass or fluid wave Auscultation: hyperactive bowel sounds Palpation: soft Extremity normal to inspection Extremity Narrative: No asymmetric edema no pitting edema negative Homans' sign bilaterally Neuro oriented x3, CN's II-XII intact bilaterally and no sensory deficits noted Sensorium / Orientation: alert Motor Exam: strength 5/5 throughout Psych mental status grossly normal Skin no rashes or lesions noted, no wounds and No skin turgor normal Skin Narrative: Skin turgor is increased General Skin Exam: Negative for jaundice or pallor MDM MDM MDM Narrative Medical decision making narrative: Patient presented to the ER tachycardic there was a stable vital. History and exam is concerning for DKA versus HHS versus colitis versus acute kidney injury. Based on her history of diabetes the most likely diagnosis is DKA and basic blood work with serum acetone and VBG were obtained. Patient's anion gap is elevated her serum bicarb is extremely low her pH is low at 7.17 consistent with acidosis and she has positive acetone consistent with DKA. Secondary to this she was started on IV fluids and an insulin drip. Medicine was also contacted for admission. Based on her elevated white count a CT scan of the abdomen and pelvis was also obtained based on her pain and symptoms of nausea/vomiting. It showed changes concerning for developing colitis or early appendicitis. The patient does not have pain in the right lower quadrant and therefore do not feel that this correlates with early appendicitis. With the left side abdominal pain this could be early colitis and therefore antibiotics will be started. However at this time as she is in DKA and will require insulin drip and continuous monitoring she will be admitted to the ICU for further care History & Record Review Discussion w/independent historian: Patient Lab Data Attestation: I reviewed the patient's lab results. Labs: Laboratory Results - last 24 hr 11/25/23 11/25/23 11/26/23 23:02 23:42 00:54 WBC 24.5 H RBC 5.62 H Hgb 15.7 H Hct 48.7 H MCV 86.7 MCH 27.9 MCHC 32.2 RDW Std Deviation 41.1 RDW Coeff of Marilynn 13.1 Plt Count 444 MPV 9.4 Immature Gran % (Auto) 2.000 H Neut % (Auto) 91.9 H Lymph % (Auto) 3.4 L [place] % (Auto) 2.4 Eos % (Auto) 0.0 Baso % (Auto) 0.3 Absolute Neuts (auto) 22.5 H Absolute Lymphs (auto) 0.84 Nucleated RBC % 0 Differential Comment SCANNED Atypical Lymphocytes 1+ Sodium 137 Potassium 3.8 Chloride 103 Carbon Dioxide 7.0 L* Anion Gap 27 H BUN 20 H Creatinine 1.00 Estim Creat Clear Calc 72.78 Est GFR (MDRD) Af Amer 86 Est GFR (MDRD) Non-Af 71 BUN/Creatinine Ratio 20.0 Glucose 424 H Lactic Acid Cancelled Calcium 9.6 Magnesium 1.9 Total Bilirubin 0.70 Direct Bilirubin 0.17 AST 17 ALT 18 Alkaline Phosphatase 116 Total Protein 8.6 H Albumin 4.8 Globulin 3.8 Lipase 13 Urine Color Urine Clarity Urine pH Ur Specific [place] Urine Protein Urine Glucose (UA) Urine Ketones Urine Occult Blood Urine Nitrite Urine Bilirubin Urine Urobilinogen Ur Leukocyte Esterase Urine RBC Urine WBC Ur Squamous Epith Cells Urine Bacteria Urine Mucus Urine Test Acetone Level MODERATE H POC Glucose 486 H* 415 H 11/26/23 11/26/23 11/26/23 01:15 02:54 04:03 WBC RBC Hgb Hct MCV MCH MCHC RDW Std Deviation RDW Coeff of Marilynn Plt Count MPV Immature Gran % (Auto) Neut % (Auto) Lymph % (Auto) [place] % (Auto) Eos % (Auto) Baso % (Auto) Absolute Neuts (auto) Absolute Lymphs (auto) Nucleated RBC % Differential Comment Atypical Lymphocytes Sodium Potassium Chloride Carbon Dioxide Anion Gap BUN Creatinine Estim Creat Clear Calc Est GFR (MDRD) Af Amer Est GFR (MDRD) Non-Af BUN/Creatinine Ratio Glucose Lactic Acid Calcium Magnesium Total Bilirubin Direct Bilirubin AST ALT Alkaline Phosphatase Total Protein Albumin Globulin Lipase Urine Color Yellow Urine Clarity Clear Urine pH 5.0 Ur Specific [place] 1.025 Urine Protein 100 H Urine Glucose (UA) 1000 H Urine Ketones 150 A* Urine Occult Blood 10 H Urine Nitrite Negative Urine Bilirubin Negative Urine Urobilinogen Normal Ur Leukocyte Esterase Negative Urine RBC 0 SEEN Urine WBC 0 SEEN Ur Squamous Epith Cells 0 SEEN Urine Bacteria 0 SEEN Urine Mucus 0 SEEN Urine Test Negative Acetone Level POC Glucose 299 H 275 H 11/26/23 11/26/23 05:26 06:22 WBC RBC Hgb Hct MCV MCH MCHC RDW Std Deviation RDW Coeff of Marilynn Plt Count MPV Immature Gran % (Auto) Neut % (Auto) Lymph % (Auto) [place] % (Auto) Eos % (Auto) Baso % (Auto) Absolute Neuts (auto) Absolute Lymphs (auto) Nucleated RBC % Differential Comment Atypical Lymphocytes Sodium Potassium Chloride Carbon Dioxide Anion Gap BUN Creatinine Estim Creat Clear Calc Est GFR (MDRD) Af Amer Est GFR (MDRD) Non-Af BUN/Creatinine Ratio Glucose Lactic Acid Calcium Magnesium Total Bilirubin Direct Bilirubin AST ALT Alkaline Phosphatase Total Protein Albumin Globulin Lipase Urine Color Urine Clarity Urine pH Ur Specific [place] Urine Protein Urine Glucose (UA) Urine Ketones Urine Occult Blood Urine Nitrite Urine Bilirubin Urine Urobilinogen Ur Leukocyte Esterase Urine RBC Urine WBC Ur Squamous Epith Cells Urine Bacteria Urine Mucus Urine Test Acetone Level POC Glucose 197 H 200 H ABG Data ABG results: ABG 11/26/23 01:01 Specimen Type LUIS Sample Site Not entered VBG pH 7.17 L* VBG pO2 102 H VBG HCO3 7 L VBG Total CO2 8 L VBG O2 Sat (Calc) 96 H VBG Base Excess -22 L POC Mix VBG pCO2 Pt Tmp 19.1 L O2 Delivery Device Room Air Crit Call To/Read Back Yes Blood Gas Notified Whom Dr. Mina Blood Gas Notified Time 01:02:40 Radiography Diagnostic Testing: Clinical Impression(s) from Imaging Studies Abdomen/Pelvis CT 11/26/23 02:43 IMPRESSION: 1. Collapsed and questionably mildly thick-walled appearance of most of the colon. Correlate with any leukocytosis or diarrhea. Possible early or mild colitis. 2. Borderline gasless appendix, measurements of 5 mm to 7 mm. No surrounding inflammation to confirm acute appendicitis. Cannot exclude very early appendicitis. 3. No free fluid. 4. Small retroperitoneal and mesenteric lymph nodes, stable. Electronically Signed: Anna Enriquez MD at 4:17 EDT Reading Location ID and State: [address] [place] [address] Tel , Service support , Management Discussion w/another healthcare provider: Hospitalist Critical Care Time Critical Care Time: Yes Critical care time (excluding procedures): Discussing w/Patient &/or Family/Animal Assisted Therapist, Discussing w/Consultants and - (Critical care time of 33 minutes) Discharge Plan Dx/Rx/DC Orders Clinical Impression: DKA (diabetic ketoacidosis), Acute colitis, Insulin dependent type 1 diabetes mellitus, Nausea & vomiting Disposition Disposition: [facility]
[2023-11-26 02:05] LABS: Atypical Lymphocyte 1+ %; Differential Comment SCANNED
[2023-11-26 02:42] LABS: Magnesium 1.9 mg/dL (1.6-2.6)
--- NOTE | 2023-11-26 02:43 | CT_ITS ---
EXAM: CT ABDOMEN AND PELVIS WITHOUT INTRAVENOUS CONTRAST CLINICAL INDICATION: abd pain TECHNIQUE: Helically acquired images were obtained of the abdomen and pelvis without intravenous contrast. This CT exam was performed using one or more of the following dose reduction techniques: automated exposure control, adjustment of the mA and/or kV according to patient size, and/or use of iterative reconstruction technique. RADIATION DOSE: CTDIvol = 6.66 mGy, DLP = 329.29 mGy-cm COMPARISON: March 02, 2023, mentioned findings suspicious for esophagitis. FINDINGS: LOWER THORAX: Unremarkable. Lung bases are clear. No cardiomegaly. No significant pericardial effusion. ABDOMEN: LIVER: Unremarkable. Homogeneous. GALLBLADDER AND BILE DUCTS: Unremarkable. No calcified gallstones. No gallbladder distention or wall edema. No intra- or extrahepatic biliary ductal dilation. PANCREAS: Unremarkable. No focal cystic mass. SPLEEN: Unremarkable. Normal size without focal cystic or solid mass. ADRENALS: Unremarkable. No nodules. KIDNEYS AND URETERS: Unremarkable. Normal renal size and position. No hydronephrosis. STOMACH AND BOWEL: Mild fluid and gas in the stomach. Most of the small bowel loops are collapsed. Collapsed and mildly thick-walled appearance most of the colon, with mild stool in the rectum. Suspicion of early or mild colitis in the appropriate clinical setting. No stomach or bowel distention. PELVIS: APPENDIX: Tortuous appendix, best seen on coronal images 43 through 39, tip not well seen medial to the right iliac vessels. Proximal appendix measures 6.5 mm on coronal image #43. Mid appendix is gasless and measures 7 mm on coronal image #40 without surrounding inflammation. Mid appendix measures 5 mm on axial image #116. The cecum was previously low lying the appendix was gasless and roughly 5 mm on prior exam. BLADDER: Moderately distended and thin walled appearance of the urinary bladder. REPRODUCTIVE: Unremarkable as visualized. No mass. ABDOMEN and PELVIS: INTRAPERITONEAL SPACE: Unremarkable. No ascites or other fluid collection. No free air. BONES/JOINTS: Unremarkable. No suspicious lytic or blastic abnormality. SOFT TISSUES: Unremarkable. No discrete abdominal or pelvic wall hernia. VASCULATURE: Unremarkable. Abdominal aorta is non-dilated. LYMPH NODES: Mild mesenteric adenopathy and multiple mildly prominent retroperitoneal lymph nodes appear similar to prior exam. CT/Abdomen/Pelvis without Cont IMPRESSION: 1. Collapsed and questionably mildly thick-walled appearance of most of the colon. Correlate with any leukocytosis or diarrhea. Possible early or mild colitis. 2. Borderline gasless appendix, measurements of 5 mm to 7 mm. No surrounding inflammation to confirm acute appendicitis. Cannot exclude very early appendicitis. 3. No free fluid. 4. Small retroperitoneal and mesenteric lymph nodes, stable. Electronically Signed: Anna Enriquez MD at 4:17 EDT ,
[2023-11-26] MEDS: HYDROmorphone 0.5 MG/0.5 ML SYRINGE IV (02:51)
[2023-11-26] MEDS: Insulin Lispro 100 UNIT in 0.9% Normal Saline (100mL Bag) 99 ML 6.6 UNIT CONT INF (03:04)
[2023-11-26 03:54] LABS: Bedside Glucose 299 mg/dL (74-106)
[2023-11-26 05:44] LABS: Bedside Glucose 275 mg/dL (74-106)
[2023-11-26 05:44] LABS: Bedside Glucose 197 mg/dL (74-106)
[2023-11-26] MEDS: proCHLORPERazine 10 MG/2 ML Vial IV (06:27)
[2023-11-26 06:39] LABS: Bedside Glucose 200 mg/dL (74-106)
[2023-11-26 06:50] LABS: Anion Gap 17 (5-15); BUN 20 mg/dL (7-18); Calcium,Total 9.4 mg/dL (8.5-10.1); Chloride 111 mmol/L (98-107); Creatinine, Serum 1.05 mg/dL (0.55-1.02); EST Glomerular Filtration Rate 68 mL/min (>60); Est Glom Filt Rate - Afr Amer 82 mL/min (>60); Estimated Creatinine Clearance 69.32 ml/min; Glucose 228 mg/dL (74-106); Potassium 3.7 mmol/L (3.5-5.1); Sodium Level 139 mmol/L (136-145)
[2023-11-26 07:47] LABS: Bedside Glucose 187 mg/dL (74-106)
--- NOTE | 2023-11-26 08:59 | EX.PCM.CON.S ---
Assessment & Plan Assessment/Plan (1) Acute colitis: (2) Abdominal pain: QUALIFIERS: Abdominal location: lower abdomen, unspecified Qualified Code(s): R10.30 - Lower abdominal pain, unspecified (3) Nausea & vomiting: QUALIFIERS: Vomiting type: unspecified Qualified Code(s): R11.2 - Nausea with vomiting, unspecified PLAN: Plan I have been consulted in conjunction with Dr. Calle. He will independently evaluate this patient. Patient is a poor historian who presents with 1 day history of acute onset of nausea, vomiting and abdominal pain located in the lower pelvis. She related her symptoms to being associated with DKA as her blood glucose has been running high. Once presented at the ED, CT scan found early/mild colitis as well as possible early appendicitis. Patient is currently on IV antibiotics, she is admitted to ICU. Patient's symptoms are not consistent with classical appendicitis symptoms. I will discuss patient with Dr. Calle. Continue IV antibiotics for treatment of colitis at this time. Recommend continued control of patient's diabetes. Patient has had the opportunity to ask and have questions answered. Patient verbally understands and agrees with the plan. Thank you for allowing us to participate in this patient's care. HPI Consult Data Date of Consult: 11/26/23 HPI Narrative Reason for Consultation: Abdominal pain HPI Narrative: KALIE DESIR, is a 23 F who presents with 1 day history of nausea, vomiting and abdominal pain. Patient is a very poor historian and very restless laying in bed. Patient states yesterday morning she woke up an started vomiting. This continued all day long. She notes her vomiting was associated with lower abdominal pain. 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 She denies any personal or family history of inflammatory bowel disease. She denies previous colonoscopy. She notes being hospitalized at the end of September with DKA. She notes having abdominal pain at that time, however this time she notes it being a little different. She can't tell why specifically it is different. She notes that ice water or drinking water makes her feel better. She notes this also makes her abdominal pain feel better. She notes having a lack of appetite over the last few weeks. She notes just doesn't feel like eating. She notes her abdominal pain is a 6 out of 10 at rest. She noted the car ride in was comfortable and that she slept the entire way in. She stated it did not make the abdominal pain worse. Patient was also evaluated in the ED 2 weeks ago for her lip ring becoming caught in her lip following drinking a can of pop. Her lip ring was removed. She was treated with 14 days of Augmentin for infection prophylaxis. Patient is a type 1 diabetic and has an insulin pump. 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 Patient notes her blood glucose has been running high lately. CT scan of the ab/pel was obtained in the ED demonstrating collapsed and questionably mild thickened- wall of most of the colon. possible early or mild colitis. Borderline gasless appendix, measurements of 5 to 7 mm. No surrounding inflammation to confirm acute appendicitis. Cannot exclude very early appendicitis. No free fluid. Small retroperitoneal and mesenteric lymph nodes, stable. WBC 24.5, Hgb 15.7, Hct 48.7, Plt 444. Neut 91.9. [facility] Medical History Anxiety and depression Asthma Cannabis hyperemesis syndrome concurrent with and due to cannabis abuse Diabetes type 1, controlled Diabetic ketoacidosis DKA, type 1 History of marijuana use Hypokalemia Hypophosphatemia Implanon in place Insulin pump titration Presence of insulin pump Tachycardia Home Medications albuterol sulfate 90 mcg/actuation aerosol inhaler (Ventolin HFA) 2 puff inhalation Q4H PRN SHORTNES OF BREATH/WHEEZING 08/25/18 [History Last Taken 03/02/23] Ketone Urine Test (acetone (urine) test) #50 ea 11/05/21 [Rx Last Taken Unknown] fluticasone propionate 50 mcg/actuation nasal spray,suspension 2 spray intranasal DAILY NASAL CONGESTION 11/21/22 [History Last Taken 02/12/23] pen needle, diabetic 32 gauge x 5/32 (BD Ultra-Fine Opal Pen Needle) #120 ea 11/23/22 [Rx Last Taken Unknown] hydroxyzine pamoate 25 mg capsule (Vistaril) 25 mg PO QHS ITCHING #30 caps 01/13/23 [Rx Last Taken 02/12/23] insulin pump cartridge,automated dose,BT with controller subcutaneous (Omnipod 5 G6 Intro Kit (Gen 5) subcutaneous cartridge with controller) #1 ea 08/15/23 [Rx Last Taken Unknown] blood-glucose sensor (Dexcom G6 Sensor device) #9 ea 11/10/23 [Rx Last Taken Unknown] blood-glucose transmitter (Dexcom G6 Transmitter device) #1 ea 11/10/23 [Rx Last Taken Unknown] insulin aspart U-100 100 unit/mL subcutaneous solution 100 unit subcut ONCE #90 mL 11/10/23 [Rx Last Taken Unknown] insulin pump cart,automated,BT (Omnipod 5 G6 Pods (Gen 5) subcutaneous cartridge) #45 ea 11/10/23 [Rx Last Taken Unknown] amoxicillin 875 mg-potassium clavulanate 125 mg tablet 1 tab PO BID 7 days #14 tabs 11/11/23 [Rx Last Taken Unknown] oxycodone-acetaminophen 5 mg-325 mg tablet (Percocet) 1 tab PO Q6H PRN pain 3 days #12 tabs 11/11/23 [Rx Last Taken Unknown] Allergy/AdvReac Type Severity Reaction Status Date / Time bee venom protein (honey bee) Allergy Severe Anaphylaxis Verified 11/25/23 23:00 [bee stings] Penicillins Allergy Unknown Verified 11/25/23 23:00 Sulfa (Sulfonamide Allergy Unknown Verified 11/25/23 23:00 Antibiotics) prednisone AdvReac Vomiting Verified 11/25/23 23:00 Family History Grandmother Diabetes Sister Asthma Brother Asthma Mother Heart disease Surgical History History of placement of ear tubes Social History household members: family Smoking Status: Never smoker second hand exposure: No alcohol intake: never substance use type: other details: Cannabis, last use ~ 1 month prior, ingested. ROS Constitutional Constitutional: Reports fatigue Eyes Eyes: Reports systems reviewed and no addt'l complaints, except as documented ENT HEENT: Reports systems reviewed and no addt'l complaints, except as documented Cardiovascular Cardiovascular: Reports systems reviewed and no addt'l complaints, except as documented Respiratory/Chest Respiratory/Chest: Reports systems reviewed and no addt'l complaints, except as documented Gastrointestinal Gastrointestinal: Reports systems reviewed and no addt'l complaints, except as documented Genitourinary Genitourinary: Reports systems reviewed and no addt'l complaints, except as documented Musculoskeletal Musculoskeletal: Reports systems reviewed and no addt'l complaints, except as documented Integumentary Integumentary: Reports systems reviewed and no addt'l complaints, except as documented Neurologic Neurologic: Reports systems reviewed and no addt'l complaints, except as documented Psychiatric Psychiatric: Reports systems reviewed and no addt'l complaints, except as documented Endocrine Endocrinology: Reports systems reviewed and no addt'l complaints, except as documented Hematologic/Lymphatic Hematologic/Lymphatic: Reports systems reviewed and no addt'l complaints, except as documented Allergic/Immunologic Allergic/Immunologic: Reports systems reviewed and no addt'l complaints, except as documented Physical Exam Const alert and oriented x3 Constitutional Narrative: restless HEENT normocephalic and head/scalp atraumatic Eyes PERRL and EOMs intact bilaterally Neck full ROM Lymph Lymphatic: no lymphadenopathy noted Resp normal respiratory effort and clear to auscultation bilaterally Cardio Rate: tachycardic Rhythm: regular rhythm GI GI Narrative: Abdomen- soft, tenderness palpated in the lower pelvic region. Hypoactive bowel sounds no CVA tenderness Back/Spine no CVA tenderness Extremity normal to inspection Skin no rashes or lesions noted Neuro no focal motor deficits and no sensory deficits noted Psych mental status grossly normal and thought process normal Lab / Micro Data 11/26/23 00:54 11/26/23 13:00 Labs: Laboratory Results - last 24 hr 11/25/23 23:02: POC Glucose 486 H* 11/25/23 23:42: POC Glucose 415 H 11/26/23 00:54: WBC 24.5 H, RBC 5.62 H, Hgb 15.7 H, Hct 48.7 H, MCV 86.7, MCH 27.9, MCHC 32.2, RDW Std Deviation 41.1, RDW Coeff of Marilynn 13.1, Plt Count 444, MPV 9.4, Immature Gran % (Auto) 2.000 H, Neut % (Auto) 91.9 H, Lymph % (Auto) 3.4 L, [place] % (Auto) 2.4, Eos % (Auto) 0.0, Baso % (Auto) 0.3, Absolute Neuts (auto) 22.5 H, Absolute Lymphs (auto) 0.84, Nucleated RBC % 0, Differential Comment SCANNED, Atypical Lymphocytes 1+, Sodium 137, Potassium 3.8, Chloride 103, Carbon Dioxide 7.0 L*, Anion Gap 27 H, BUN 20 H, Creatinine 1.00, Estim Creat Clear Calc 72.78, Est GFR (MDRD) Af Amer 86, Est GFR (MDRD) Non-Af 71, BUN/Creatinine Ratio 20.0, Glucose 424 H, Lactic Acid Cancelled, Calcium 9.6, Magnesium 1.9, Total Bilirubin 0.70, Direct Bilirubin 0.17, AST 17, ALT 18, Alkaline Phosphatase 116, Total Protein 8.6 H, Albumin 4.8, Globulin 3.8, Lipase 13, Acetone Level MODERATE H 11/26/23 01:15: Urine Color Yellow, Urine Clarity Clear, Urine pH 5.0, Ur Specific [place] 1.025, Urine Protein 100 H, Urine Glucose (UA) 1000 H, Urine Ketones 150 A*, Urine Occult Blood 10 H, Urine Nitrite Negative, Urine Bilirubin Negative, Urine Urobilinogen Normal, Ur Leukocyte Esterase Negative, Urine RBC 0 SEEN, Urine WBC 0 SEEN, Ur Squamous Epith Cells 0 SEEN, Urine Bacteria 0 SEEN, Urine Mucus 0 SEEN, Urine Test Negative 11/26/23 02:54: POC Glucose 299 H 11/26/23 04:03: POC Glucose 275 H 11/26/23 05:26: POC Glucose 197 H 11/26/23 06:22: POC Glucose 200 H 11/26/23 06:23: Sodium 139, Potassium 3.7, Chloride 111 H, Carbon Dioxide 11.0 L, Anion Gap 17 H, BUN 20 H, Creatinine 1.05 H, Estim Creat Clear Calc 69.32, Est GFR (MDRD) Af Amer 82, Est GFR (MDRD) Non-Af 68, BUN/Creatinine Ratio 19.0, Glucose 228 H, Calcium 9.4 11/26/23 07:30: POC Glucose 187 H Micro: Microbiology 11/26/23 00:42 Mucosa - Throat Streptococcus pyogenes (PCR) - Final ABG Data ABG results: ABG 11/26/23 01:01 Specimen Type LUIS Sample Site Not entered VBG pH 7.17 L* VBG pO2 102 H VBG HCO3 7 L VBG Total CO2 8 L VBG O2 Sat (Calc) 96 H VBG Base Excess -22 L POC Mix VBG pCO2 Pt Tmp 19.1 L O2 Delivery Device Room Air Crit Call To/Read Back Yes Blood Gas Notified Whom Dr. Mina Blood Gas Notified Time 01:02:40 Imaging Radiology Impression Abdomen/Pelvis CT 11/26/23 02:43 IMPRESSION: 1. Collapsed and questionably mildly thick-walled appearance of most of the colon. Correlate with any leukocytosis or diarrhea. Possible early or mild colitis. 2. Borderline gasless appendix, measurements of 5 mm to 7 mm. No surrounding inflammation to confirm acute appendicitis. Cannot exclude very early appendicitis. 3. No free fluid. 4. Small retroperitoneal and mesenteric lymph nodes, stable. Electronically Signed: Anna Enriquez MD at 4:17 EDT , Charges/Coding Visit Charges Office Visits / Consults: [id number] IP Consult L3
[2023-11-26] MEDS: Potassium Chloride 10mEq/100mL 10 MEQ/100 ML IV.SOLN. 100 MEQ IV BOLUS ×2 (09:00→10:06)
[2023-11-26] MEDS: Dext 5%-0.45% NS 1,000 ML 150 ML IV ×2 (09:03→15:34)
[2023-11-26 09:06] LABS: Bedside Glucose 180 mg/dL (74-106)
--- NOTE | 2023-11-26 09:26 | PN.HOSP_ITS ---
Reason for Visit Reason for Visit: Diagnoses Type 1 diabetes mellitus with ketoacidosis without coma (11/26/23) Type 1 diabetes mellitus with hyperglycemia (11/26/23) Unspecified appendicitis (11/26/23) Noninfective gastroenteritis and colitis, unspecified (11/26/23) Patient's noncompliance with other medical treatment and regimen due to unspecified reason (11/26/23) Objective Data Objective Data Vital Signs: Vital Signs Temp Pulse Resp BP Pulse Ox O2 Del Method 36.4 C L 123 H 21 H 129/98 H 99 Room Air 11/26/23 08:35 11/26/23 08:58 11/26/23 08:58 11/26/23 08:58 11/26/23 08:58 11/26/23 08:58 Oxygen Delivery Method Room Air Weight: 63.7 kg Body Mass Index (BMI) 28.3 Intake & Output: Intake and Output for Last 24 Hours 11/24/23 11/25/23 11/26/23 23:59 23:59 23:59 Intake Total 1040.08 / 1040.08 Balance 1040.08 / 1040.08 Lab / Micro Data 11/26/23 00:54 11/26/23 06:23 Labs: Laboratory Results - last 24 hr 11/25/23 23:02: POC Glucose 486 H* 11/25/23 23:42: POC Glucose 415 H 11/26/23 00:54: WBC 24.5 H, RBC 5.62 H, Hgb 15.7 H, Hct 48.7 H, MCV 86.7, MCH 27.9, MCHC 32.2, RDW Std Deviation 41.1, RDW Coeff of Marilynn 13.1, Plt Count 444, MPV 9.4, Immature Gran % (Auto) 2.000 H, Neut % (Auto) 91.9 H, Lymph % (Auto) 3.4 L, [place] % (Auto) 2.4, Eos % (Auto) 0.0, Baso % (Auto) 0.3, Absolute Neuts (auto) 22.5 H, Absolute Lymphs (auto) 0.84, Nucleated RBC % 0, Differential Comment SCANNED, Atypical Lymphocytes 1+, Sodium 137, Potassium 3.8, Chloride 103, Carbon Dioxide 7.0 L*, Anion Gap 27 H, BUN 20 H, Creatinine 1.00, Estim Creat Clear Calc 72.78, Est GFR (MDRD) Af Amer 86, Est GFR (MDRD) Non-Af 71, BUN/Creatinine Ratio 20.0, Glucose 424 H, Lactic Acid Cancelled, Calcium 9.6, Magnesium 1.9, Total Bilirubin 0.70, Direct Bilirubin 0.17, AST 17, ALT 18, Alkaline Phosphatase 116, Total Protein 8.6 H, Albumin 4.8, Globulin 3.8, Lipase 13, Acetone Level MODERATE H 11/26/23 01:15: Urine Color Yellow, Urine Clarity Clear, Urine pH 5.0, Ur Specific [place] 1.025, Urine Protein 100 H, Urine Glucose (UA) 1000 H, Urine Ketones 150 A*, Urine Occult Blood 10 H, Urine Nitrite Negative, Urine Bilirubin Negative, Urine Urobilinogen Normal, Ur Leukocyte Esterase Negative, Urine RBC 0 SEEN, Urine WBC 0 SEEN, Ur Squamous Epith Cells 0 SEEN, Urine Bacteria 0 SEEN, Urine Mucus 0 SEEN, Urine Test Negative 11/26/23 02:54: POC Glucose 299 H 11/26/23 04:03: POC Glucose 275 H 11/26/23 05:26: POC Glucose 197 H 11/26/23 06:22: POC Glucose 200 H 11/26/23 06:23: Sodium 139, Potassium 3.7, Chloride 111 H, Carbon Dioxide 11.0 L , Anion Gap 17 H, BUN 20 H, Creatinine 1.05 H, Estim Creat Clear Calc 69.32, Est GFR (MDRD) Af Amer 82, Est GFR (MDRD) Non-Af 68, BUN/Creatinine Ratio 19.0, Glucose 228 H, Calcium 9.4 11/26/23 07:30: POC Glucose 187 H 11/26/23 08:46: POC Glucose 180 H Micro: Microbiology 11/26/23 00:42 Mucosa - Throat Streptococcus pyogenes (PCR) - Final ABG Data ABG results: ABG 11/26/23 01:01 Specimen Type LUIS Sample Site Not entered VBG pH 7.17 L* VBG pO2 102 H VBG HCO3 7 L VBG Total CO2 8 L VBG O2 Sat (Calc) 96 H VBG Base Excess -22 L POC Mix VBG pCO2 Pt Tmp 19.1 L O2 Delivery Device Room Air Crit Call To/Read Back Yes Blood Gas Notified Whom Dr. Mina Blood Gas Notified Time 01:02:40 Radiography Diagnostic Testing: Radiology Impression Abdomen/Pelvis CT 11/26/23 02:43 IMPRESSION: 1. Collapsed and questionably mildly thick-walled appearance of most of the colon. Correlate with any leukocytosis or diarrhea. Possible early or mild colitis. 2. Borderline gasless appendix, measurements of 5 mm to 7 mm. No surrounding inflammation to confirm acute appendicitis. Cannot exclude very early appendicitis. 3. No free fluid. 4. Small retroperitoneal and mesenteric lymph nodes, stable. Electronically Signed: Anna Enriquez MD at 4:17 EDT Reading Location ID and State: [facility] / [place] Tel , Service support , Assessment & Plan Assessment/Plan (1) DKA (diabetic ketoacidosis): QUALIFIERS: Diabetes mellitus type: type 1 Diabetes mellitus complication detail: without coma Qualified Code(s): E10.10 - Type 1 diabetes mellitus with ketoacidosis without coma (2) Type 1 diabetes mellitus with hyperglycemia: (3) Non-compliance: (4) Acute colitis: (5) Appendicitis: QUALIFIERS: Appendicitis type: unspecified Qualified Code(s): K37 - Unspecified appendicitis PLAN: Plan DKA; evidenced by hyperglycemia of 424 mg/dL with pH of 7.17 and moderate serum acetone present on admission - Admit to ICU for treatment under DKA protocol. Continue IV insulin drip and change IV fluid to D5 half-normal saline with 20 meq of potassium chloride when sugar is below 250 mg/dL. Give Zofran IV as needed nausea and vomiting. We will consult clinical dietitian to see patient on rounds in the a.m. for further teaching to help prevent serial readmission with help appreciated in advance. 2. DM-1; uncontrolled with hyperglycemia with reported insulin pump malfunction in the setting of known previous medical noncompliance and previous bouts of DKA complicating #1 - Hold insulin pump while patient is on IV insulin drip. Patient would likely benefit from further teaching about how to use her pump to prevent serial readmission. 3. CT evidence of colitis with possible early appendicitis with leukocytosis 24.5 present on admission compounding #1 & #2 - Start empiric IV Levaquin and IV Flagyl given patient's documented PCN allergy and check stool studies. Finally, we will consult general surgery to see this patient on-rounds in the AM for further recommendations with help appreciated in advance. 4. Overweight; with BMI of 29.3 this admission - Weight loss will be recommended. 5. History of asthma - Stable with no evidence of acute flare. Continue prn nebulizers. 6. History of hepatitis A - Noted. 7. Depression with anxiety - Continue home regimen plus give prn Vistaril for breakthrough symptoms. 8. History of cannabis abuse - Cannabis cessation will be strongly encouraged. 9. DVT prophylaxis - Lovenox 40 mg sq daily.
[2023-11-26 09:46] LABS: Bedside Glucose 205 mg/dL (74-106)
[2023-11-26 09:55] LABS: Hemoglobin A1c 10.5 % (3.8-5.6)
[2023-11-26 11:06] LABS: Bedside Glucose 189 mg/dL (74-106)
[2023-11-26] MEDS: metroNIDAZOLE 500 MG/100 ML BAG 100 MG IV ×2 (12:58→21:50)
[2023-11-26 13:19] LABS: Bedside Glucose 195 mg/dL (74-106)
[2023-11-26 13:25] LABS: Anion Gap 9 (5-15); BUN 22 mg/dL (7-18); BUN/Creat Ratio 23.6 RATIO (10-20); Calcium,Total 9.1 mg/dL (8.5-10.1); Chloride 111 mmol/L (98-107); Creatinine, Serum 0.93 mg/dL (0.55-1.02); EST Glomerular Filtration Rate 77 mL/min (>60); Est Glom Filt Rate - Afr Amer 94 mL/min (>60); Estimated Creatinine Clearance 77.05 ml/min; Glucose 225 mg/dL (74-106); Potassium 3.7 mmol/L (3.5-5.1); Sodium Level 139 mmol/L (136-145)
--- NOTE | 2023-11-26 14:01 | PCM.OP.PRO ---
Procedure Report Date of Procedure: 11/26/23 Assessment & Plan Assessment/Plan (1) DKA (diabetic ketoacidosis): QUALIFIERS: Diabetes mellitus type: type 1 Diabetes mellitus complication detail: without coma Qualified Code(s): E10.10 - Type 1 diabetes mellitus with ketoacidosis without coma Procedures Radiology Radiology Access Procedures: PICC Procedure Time Out Time Out Informed consent given: Yes Consent signed: Yes Time out checklist: patient, procedure, site marked/identified, positioning of patient, supplies available and allergies confirmed Time out verified: Yes Time out date: 11/26/23 Time out time: 11:07 PICC Line Consent Screening tool completed:: Yes Consent obtained:: Yes Consent given by (patient or responsible green party):: PATIENT Line successful (if no, document why in comments):: Yes Insertion Reason for Insertion: Poor Venous Access Date of Insertion: 11/26/23 Ok to use: Yes Type of PICC inserted: Dual Power PICC PICC Lot #: [id number] PICC Reference #: [id number] Microintroducer Used: Yes (in kit) Ultrasound/Equipment Used: Probe Cover Kit Trimmed Length (cm): 37 Insertion Length (cm): 34 Exposed Length (cm): 3 Tip Placement: Caval Atrial Junction Placement Confirmation: 3CG Insertion Vein: Left Brachial Insertion Attempts: 2 Local Anesthesia Used: Lidocaine 1% (in kit) Dressing Applied: Statlock and Tegaderm CHG Arm Measurement above site (in cm): 33 Patient Tolerated Procedure: Well Threading Difficulties: No Comments Comment: Patient identity was verified with two patient identifiers. Informed consent was obtained and time-out was completed. Hands were sanitized. The patient was positioned supine with right arm at 90 degrees. The patient's upper arm vasculature was assessed using ultrasound. Patency of the right brachial vein was confirmed and the vein was externally marked. An external measurement was obtained of 36 cm. External leads were applied to the patient's right upper chest and laterally and inferior of the umbilicus on the mid axillary line. Cap, mask, and prep gloves were donned. The underdrape was placed under the patient's arm. The site was prepped with chlorhexidine, and tourniquet was loosely applied. Prep gloves were discarded, and hands were sanitized. The sterile kit was opened with additional supplies dropped in. Sterile gown and gloves were donned, and the patient was draped. The sterile kit was assembled with needle, introducer, needless connectors, and each catheter lumen flushed with sterile normal saline. The marked site of insertion was anesthetized with 1% lidocaine from the kit. Patient tolerated well. The right brachial vein was then attempted to accessed using ultrasound guidance; however, access was unable to be obtained. The tourniquet was released and the patient was informed that the right side was unsuccessful. The patient was agreeable to moving to the left side for second attempt. Hands were sanitized. The patient was positioned supine with left arm at 90 degrees. The patient's upper arm vasculature was assessed using ultrasound. Patency of the left brachial vein was confirmed and the vein was externally marked. An external measurement was obtained of 37 cm. External leads were applied to the patient's right upper chest and laterally and inferior of the umbilicus on the mid axillary line. Cap, mask, and prep gloves were donned. The underdrape was placed under the patient's arm. The site was prepped with chlorhexidine, and tourniquet was loosely applied. Prep gloves were discarded, and hands were sanitized. The sterile kit was opened with additional supplies dropped in. Sterile gown and gloves were donned, and the patient was draped. The sterile kit was assembled with needle, introducer, needless connectors, and each catheter lumen flushed with sterile normal saline. The marked site of insertion was anesthetized with 1% lidocaine from the kit. Patient tolerated well. The left brachial vein was then accessed using ultrasound guidance and guidewire was inserted to safety michelle. The tourniquet was released. The access needle was removed while securing the guidewire in place. The site was again anesthetized with 1% lidocaine, prior to insertion of introducer sheath and dilator. Patient tolerated the insertion well. The catheter was trimmed to a length of 37 cm. Using 3C guidance, the catheter was then inserted through the introducer sheath, slowly. There was no resistance on insertion. The catheter followed the expected course of the vessel using 3CG tracking. The introducer sheath was retracted and peeled away, incrementally, while keeping the catheter secured. Maximal p-wave, without deflection, confirming placement in the cavoatrial junction, was obtained at an insertion length of 34 cm, leaving 3 cm external. The stylet was removed. A flushed needleless connector was attached to the lumen. Aspiration of the lumen was performed to remove any air and confirm blood return. Blood return was verified and each lumen was flushed with 10 ml of sterile normal saline in a pulsatile fashion. The each lumen was clamped with the last pulsed flush. Total sterile flushes used for the insertion was 6 10 ml syringes, 2 from the kit. Finally, the insertion site was cleaned with chlorhexidine, and the catheter was secured using a StatLock. The site was covered with a Tegaderm CHG Dressing and disinfecting caps were applied. Baseline arm circumference was obtained at the insertion site and measured 33 cm. The patient was provided with a patient education handout on PICC line care of infection prevention, heavy lifting restriction, maintaining mobility, and watching for any signs of infection. The primary nurse is aware that the PICC line is ready for use.
[2023-11-26] MEDS: levoFLOXacin IV 750 MG/150 ML BAG 100 MG IV (14:03)
[2023-11-26 14:22] LABS: Bedside Glucose 185 mg/dL (74-106)
[2023-11-26] MEDS: Insulin Lispro 100 UNIT in 0.9% Normal Saline (100mL Bag) 99 ML 8.6 UNIT CONT INF (14:53)
[2023-11-26] MEDS: KCL 20MEQ in 0.45%NS 20 MEQ/1,000 ML IV.SOLN. 125 MEQ IV (14:57)
[2023-11-26 15:09] LABS: Bedside Glucose 178 mg/dL (74-106)
[2023-11-26] MEDS: Pantoprazole Sodium 40 MG in 0.9% Normal Saline (100mL MB+) 100 ML 330 MG IV (15:34)
[2023-11-26 16:02] LABS: Bedside Glucose 202 mg/dL (74-106)
[2023-11-26 16:12] LABS: Anion Gap 7 (5-15); BUN 19 mg/dL (7-18); BUN/Creat Ratio 23.5 RATIO (10-20); Calcium,Total 8.7 mg/dL (8.5-10.1); Chloride 110 mmol/L (98-107); Creatinine, Serum 0.81 mg/dL (0.55-1.02); EST Glomerular Filtration Rate 91 mL/min (>60); Est Glom Filt Rate - Afr Amer 110 mL/min (>60); Estimated Creatinine Clearance 88.46 ml/min; Glucose 229 mg/dL (74-106); Potassium 3.6 mmol/L (3.5-5.1); Sodium Level 137 mmol/L (136-145)
[2023-11-26 20:12] LABS: Internal QC Validated? YES +Cl - CLEAR BKGD; Pregnancy, Urine Negative Negative
[2023-11-26] MEDS: hydrOXYzine PAM 25 MG Capsule PO (21:48)
[2023-11-26] MEDS: Insulin Glargine-YFGN 100 UNIT/ML Pen 20 UNIT SC (22:02)
[2023-11-26] MEDS: Insulin Lispro 100 UNIT/ML INSULN.PEN SC (22:03)
[2023-11-26 22:48] LABS: Bedside Glucose 377 mg/dL (74-106)
[2023-11-27] VITALS (14 sets, daily range): BP systolic 99–127; BP diastolic 59–85; PULSE 87–113; RESP 12–24; TEMP 36.3–37.3; O2SAT 94–100; BMI 28.2
[2023-11-27] MEDS: KCL 20MEQ in 0.45%NS 20 MEQ/1,000 ML IV.SOLN. 125 MEQ IV (00:23)
[2023-11-27 03:55] LABS: Bedside Glucose 373 mg/dL (74-106)
[2023-11-27] MEDS: 0.9% Saline Lock 10 ML Syringe IV (05:36)
[2023-11-27] MEDS: metroNIDAZOLE 500 MG/100 ML BAG 100 MG IV ×3 (05:37→22:12)
[2023-11-27 05:44] LABS: Absolute Neutrophil Count 16.7 X10^3/uL (2.0-7.7); Basophil# 0.02 X10^3/uL; Basophil% 0.1 % (0-1); Hematocrit 42.6 % (37-47); Hemoglobin 13.4 g/dL (12.0-15.0); Lymphocyte % 9.7 % (19-41); Mean Corp Hgb Conc 31.5 g/dL (32-36); Mean Corpuscular Hgb 27.4 pg (27.0-32.0); Mean Corpuscular Volume 87.1 fL (81-99); Monocyte# 0.78 X10^3/uL; NRBC Flagged by Analyzer 0 % (0-5); Neutrophil # 16.72 X10^3/uL (2.7-7.7); Neutrophil % 85.7 % (47-70); Platelet Count 386 K/mm3 (150-450); RBC Distribution Width CV 13.5 % (11.6-14.6); RBC Distribution Width SD 42.5 fl (35.1-43.9); Red Blood Count 4.89 M/mm3 (4.2-5.4); White Blood Count 19.5 K/mm3 (4.4-11.0)
[2023-11-27 06:22] LABS: Anion Gap 17 (5-15); BUN 14 mg/dL (7-18); BUN/Creat Ratio 14.3 RATIO (10-20); Calcium,Total 8.6 mg/dL (8.5-10.1); Chloride 106 mmol/L (98-107); Creatinine, Serum 0.98 mg/dL (0.55-1.02); EST Glomerular Filtration Rate 73 mL/min (>60); Est Glom Filt Rate - Afr Amer 89 mL/min (>60); Estimated Creatinine Clearance 73.01 ml/min; Glucose 414 mg/dL (74-106); Potassium 4.4 mmol/L (3.5-5.1); Sodium Level 133 mmol/L (136-145)
[2023-11-27] MEDS: Insulin Lispro 100 UNIT/ML INSULN.PEN SC ×4 (07:30→11:45)
[2023-11-27 07:55] LABS: Bedside Glucose 410 mg/dL (74-106)
[2023-11-27] MEDS: Insulin Glargine-YFGN 100 UNIT/ML Pen 20 UNIT SC (08:43)
[2023-11-27] MEDS: Enoxaparin 40 MG/0.4 ML Syringe SC (08:43)
[2023-11-27] MEDS: Fluticasone 0.05% 1 SPRAY NASAL.SRY 2 SPRAY NASAL (08:44)
--- NOTE | 2023-11-27 09:06 | PCM.PN.SRG ---
Subjective Subjective Patient evaluate dressing comfortably in bed. She denies any further nausea and vomiting. She notes being able to keep fluids down. She denies any loose stools. She notes belching, however no flatus. She denies abdominal pain today. Objective Data Objective Data Vital Signs: Vital Signs Temp Pulse Resp BP Pulse Ox O2 Del Method 99.2 F H 102 H 18 121/71 H 100 Room Air 11/27/23 05:32 11/27/23 05:32 11/27/23 05:32 11/27/23 05:32 11/27/23 05:32 11/27/23 05:32 Oxygen Delivery Method Room Air Weight: 139 lb 15.896 oz Body Mass Index (BMI) 28.2 Intake & Output: Intake and Output for Last 24 Hours 11/25/23 11/26/23 11/27/23 23:59 23:59 23:59 Intake Total 3636.52 / 3836.52 2259.49 / 2259.49 Output Total 1200 / 1200 Balance 3636.52 / 2636.52 1059.49 / 1059.49 Lab / Micro Data 11/27/23 05:20 11/27/23 08:51 Labs: Laboratory Results - last 24 hr 11/26/23 00:54: Hemoglobin A1c 10.5 H 11/26/23 08:46: POC Glucose 180 H 11/26/23 09:28: POC Glucose 205 H 11/26/23 10:48: POC Glucose 189 H 11/26/23 12:51: POC Glucose 195 H 11/26/23 13:00: Sodium 139, Potassium 3.7, Chloride 111 H, Carbon Dioxide 19.0 L, Anion Gap 9, BUN 22 H, Creatinine 0.93, Estim Creat Clear Calc 77.05, Est GFR (MDRD) Af Amer 94, Est GFR (MDRD) Non-Af 77, BUN/Creatinine Ratio 23.6 H, Glucose 225 H, Calcium 9.1 11/26/23 14:02: POC Glucose 185 H 11/26/23 14:51: POC Glucose 178 H 11/26/23 15:40: Sodium 137, Potassium 3.6, Chloride 110 H, Carbon Dioxide 20.0 L, Anion Gap 7, BUN 19 H, Creatinine 0.81, Estim Creat Clear Calc 88.46, Est GFR (MDRD) Af Amer 110, Est GFR (MDRD) Non-Af 91, BUN/Creatinine Ratio 23.5 H, Glucose 229 H, Calcium 8.7 11/26/23 15:42: POC Glucose 202 H 11/26/23 19:55: Urine Test Negative 11/26/23 21:47: POC Glucose 377 H 11/27/23 03:12: POC Glucose 373 H 11/27/23 05:20: WBC 19.5 H, RBC 4.89, Hgb 13.4, Hct 42.6, MCV 87.1, MCH 27.4, MCHC 31.5 L, RDW Std Deviation 42.5, RDW Coeff of Marilynn 13.5, Plt Count 386, MPV 9.0, Immature Gran % (Auto) 0.500, Neut % (Auto) 85.7 H, Lymph % (Auto) 9.7 L, [place] % (Auto) 4.0, Eos % (Auto) 0.0, Baso % (Auto) 0.1, Absolute Neuts (auto) 16.7 H, Absolute Lymphs (auto) 1.90, Nucleated RBC % 0, Sodium 133 L, Potassium 4.4, Chloride 106, Carbon Dioxide 10.0 L, Anion Gap 17 H, BUN 14, Creatinine 0.98, Estim Creat Clear Calc 73.01, Est GFR (MDRD) Af Amer 89, Est GFR (MDRD) Non-Af 73, BUN/Creatinine Ratio 14.3, Glucose 414 H, Calcium 8.6 11/27/23 07:28: POC Glucose 410 H Micro: Microbiology 11/26/23 00:42 Mucosa - Throat Streptococcus pyogenes (PCR) - Final Physical Exam GI GI Narrative: Abdomen- slight distention, soft. Hypoactive bowel sounds Assessment & Plan Assessment/Plan (1) Abdominal pain: QUALIFIERS: Abdominal location: lower abdomen, unspecified Qualified Code(s): R10.30 - Lower abdominal pain, unspecified PLAN: I am seeing this patient in conjunction with Dr. Calle. He has independently evaluated this patient. Patient's abdominal pain has resolved Labs reviewed. WBC is decreasing No surgical intervention is being recommended at this time We will continue to monitor this patient Charges/Coding Visit Charges Inpatient E&M: 93184 Subs Hosp L1
[2023-11-27 09:26] LABS: Anion Gap 17 (5-15); BUN 14 mg/dL (7-18); Calcium,Total 8.6 mg/dL (8.5-10.1); Chloride 107 mmol/L (98-107); Creatinine, Serum 1.08 mg/dL (0.55-1.02); EST Glomerular Filtration Rate 65 mL/min (>60); Est Glom Filt Rate - Afr Amer 79 mL/min (>60); Estimated Creatinine Clearance 66.25 ml/min; Glucose 346 mg/dL (74-106); Potassium 4.1 mmol/L (3.5-5.1); Sodium Level 132 mmol/L (136-145)
--- NOTE | 2023-11-27 09:35 | PN.HOSP_ITS ---
Reason for Visit Reason for Visit: Diagnoses Type 1 diabetes mellitus with ketoacidosis without coma (11/26/23) Type 1 diabetes mellitus with hyperglycemia (11/26/23) Unspecified appendicitis (11/26/23) Noninfective gastroenteritis and colitis, unspecified (11/26/23) Lower abdominal pain, unspecified (11/26/23) Nausea with vomiting, unspecified (11/26/23) Patient's noncompliance with other medical treatment and regimen due to unspecified reason (11/26/23) Subjective Subjective Patient has been eating. Despite that, her glucose has remained uncontrolled and her anion gap has increased and carbon oxide has gone down. Objective Data Objective Data Vital Signs: Vital Signs Temp Pulse Resp BP Pulse Ox O2 Del Method 37.3 C H 102 H 18 121/71 H 100 Room Air 11/27/23 05:32 11/27/23 05:32 11/27/23 05:32 11/27/23 05:32 11/27/23 05:32 11/27/23 05:32 Oxygen Delivery Method Room Air Weight: 63.5 kg Body Mass Index (BMI) 28.2 Intake & Output: Intake and Output for Last 24 Hours 11/25/23 11/26/23 11/27/23 23:59 23:59 23:59 Intake Total 3636.52 / 3836.52 2259.49 / 2259.49 Output Total 1200 / 1200 Balance 3636.52 / 2636.52 1059.49 / 1059.49 Lab / Micro Data 11/27/23 05:20 11/27/23 08:51 Labs: Laboratory Results - last 24 hr 11/26/23 00:54: Hemoglobin A1c 10.5 H 11/26/23 09:28: POC Glucose 205 H 11/26/23 10:48: POC Glucose 189 H 11/26/23 12:51: POC Glucose 195 H 11/26/23 13:00: Sodium 139, Potassium 3.7, Chloride 111 H, Carbon Dioxide 19.0 L , Anion Gap 9, BUN 22 H, Creatinine 0.93, Estim Creat Clear Calc 77.05, Est GFR (MDRD) Af Amer 94, Est GFR (MDRD) Non-Af 77, BUN/Creatinine Ratio 23.6 H, Glucose 225 H, Calcium 9.1 11/26/23 14:02: POC Glucose 185 H 11/26/23 14:51: POC Glucose 178 H 11/26/23 15:40: Sodium 137, Potassium 3.6, Chloride 110 H, Carbon Dioxide 20.0 L , Anion Gap 7, BUN 19 H, Creatinine 0.81, Estim Creat Clear Calc 88.46, Est GFR (MDRD) Af Amer 110, Est GFR (MDRD) Non-Af 91, BUN/Creatinine Ratio 23.5 H, Glucose 229 H, Calcium 8.7 11/26/23 15:42: POC Glucose 202 H 11/26/23 19:55: Urine Test Negative 11/26/23 21:47: POC Glucose 377 H 11/27/23 03:12: POC Glucose 373 H 11/27/23 05:20: WBC 19.5 H, RBC 4.89, Hgb 13.4, Hct 42.6, MCV 87.1, MCH 27.4, MCHC 31.5 L, RDW Std Deviation 42.5, RDW Coeff of Marilynn 13.5, Plt Count 386, MPV 9.0, Immature Gran % (Auto) 0.500, Neut % (Auto) 85.7 H, Lymph % (Auto) 9.7 L, Power % (Auto) 4.0, Eos % (Auto) 0.0, Baso % (Auto) 0.1, Absolute Neuts (auto) 16.7 H, Absolute Lymphs (auto) 1.90, Nucleated RBC % 0, Sodium 133 L, Potassium 4.4, Chloride 106, Carbon Dioxide 10.0 L, Anion Gap 17 H, BUN 14, Creatinine 0.98, Estim Creat Clear Calc 73.01, Est GFR (MDRD) Af Amer 89, Est GFR (MDRD) Non-Af 73, BUN/Creatinine Ratio 14.3, Glucose 414 H, Calcium 8.6 11/27/23 07:28: POC Glucose 410 H 11/27/23 08:51: Sodium 132 L, Potassium 4.1, Chloride 107, Carbon Dioxide 8.0 L* , Anion Gap 17 H, BUN 14, Creatinine 1.08 H, Estim Creat Clear Calc 66.25, Est GFR (MDRD) Af Amer 79, Est GFR (MDRD) Non-Af 65, BUN/Creatinine Ratio 13.0, Glucose 346 H, Calcium 8.6 Micro: Microbiology 11/26/23 00:42 Mucosa - Throat Streptococcus pyogenes (PCR) - Final Physical Exam Const alert and no apparent distress HEENT head/scalp atraumatic and moist oral mucous membranes Psych affect normal Assessment & Plan Assessment/Plan (1) DKA (diabetic ketoacidosis): QUALIFIERS: Diabetes mellitus type: type 1 Diabetes mellitus complication detail: without coma Qualified Code(s): E10.10 - Type 1 diabetes mellitus with ketoacidosis without coma (2) Type 1 diabetes mellitus with hyperglycemia: (3) Non-compliance: (4) Acute colitis: (5) Appendicitis: QUALIFIERS: Appendicitis type: unspecified Qualified Code(s): K37 - Unspecified appendicitis PLAN: Plan Acute DKA * in type 1 diabetic. due to insulin pump running out, going to bed w/o insulin. * Started on IVF and IV insulin. Got out of DKA yesterday and went to appear to go back into it again today. Patient did receive a dose of about 20 units of glargine this morning. Feel the patient is more and more likely to continue to slide into DKA so we will place patient back in the intensive care units and resume insulin drip as well as continue with IV fluids, NPO. * I emphasized to the patient today that she needs to take full ownership over her diabetes as she is currently 23 years old with type 1 diabetes and the fact that she just pulled the insulin pump off when it ran out is rather meager excuse for her current issues. Acute Colitis * Not felt to be appendicitis nor colitis by general surgery. * on abx with levofloxacin and metronidazole and will continue given her ongoing leukocytosis. * Gen Surg consulted. Feels less likely appendicitis. No imminent plans for surgery. Chronic conditions: * History of asthma - Stable with no evidence of acute flare. Continue prn nebulizers. * Depression with anxiety - Continue home regimen plus give prn Vistaril for breakthrough symptoms. * History of cannabis abuse - Cannabis cessation will be strongly encouraged. VTE prophylaxis - enoxaparin Charges/Coding Visit Charges Inpatient E&M: 30883 Subs Hosp L2
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
[2023-11-27 11:24] LABS: Bedside Glucose 275 mg/dL (74-106)
[2023-11-27] MEDS: Pantoprazole Sodium 40 MG in 0.9% Normal Saline (100mL MB+) 100 ML 330 MG IV (11:41)
--- NOTE | 2023-11-27 12:27 | NURSING ---
PT TRANSFERRED TO ICU7. REPORT CALLED TO AKIN
[2023-11-27] MEDS: levoFLOXacin IV 750 MG/150 ML BAG 100 MG IV (12:28)
[2023-11-27] MEDS: 0.9% Normal Saline (1000mL) 1,000 ML 999 ML IV (12:40)
--- NOTE | 2023-11-27 13:31 | PCM.PN.HOSP ---
Reason for Visit Reason for Visit: Diagnoses Type 1 diabetes mellitus with ketoacidosis without coma (11/26/23) Type 1 diabetes mellitus with hyperglycemia (11/26/23) Unspecified appendicitis (11/26/23) Noninfective gastroenteritis and colitis, unspecified (11/26/23) Lower abdominal pain, unspecified (11/26/23) Nausea with vomiting, unspecified (11/26/23) Patient's noncompliance with other medical treatment and regimen due to unspecified reason (11/26/23) Subjective Subjective Tolerating diet. Objective Data Objective Data Vital Signs: Vital Signs Temp Pulse Resp BP Pulse Ox O2 Del Method 36.8 C 113 H 12 120/74 99 Room Air 11/27/23 10:00 11/27/23 10:00 11/27/23 10:00 11/27/23 10:00 11/27/23 10:00 11/27/23 10:00 Oxygen Delivery Method Room Air Weight: 63.5 kg Body Mass Index (BMI) 28.2 Intake & Output: Intake and Output for Last 24 Hours 11/25/23 11/26/23 11/27/23 23:59 23:59 23:59 Intake Total 3636.52 / 3836.52 2782.83 / 2782.83 Output Total 1200 / 1200 Balance 3636.52 / 2636.52 1582.83 / 1582.83 Lab / Micro Data 11/27/23 05:20 11/27/23 08:51 Labs: Laboratory Results - last 24 hr 11/26/23 14:02: POC Glucose 185 H 11/26/23 14:51: POC Glucose 178 H 11/26/23 15:40: Sodium 137, Potassium 3.6, Chloride 110 H, Carbon Dioxide 20.0 L, Anion Gap 7, BUN 19 H, Creatinine 0.81, Estim Creat Clear Calc 88.46, Est GFR (MDRD) Af Amer 110, Est GFR (MDRD) Non-Af 91, BUN/Creatinine Ratio 23.5 H, Glucose 229 H, Calcium 8.7 11/26/23 15:42: POC Glucose 202 H 11/26/23 19:55: Urine Test Negative 11/26/23 21:47: POC Glucose 377 H 11/27/23 03:12: POC Glucose 373 H 11/27/23 05:20: WBC 19.5 H, RBC 4.89, Hgb 13.4, Hct 42.6, MCV 87.1, MCH 27.4, MCHC 31.5 L, RDW Std Deviation 42.5, RDW Coeff of Marilynn 13.5, Plt Count 386, MPV 9.0, Immature Gran % (Auto) 0.500, Neut % (Auto) 85.7 H, Lymph % (Auto) 9.7 L, [place] % (Auto) 4.0, Eos % (Auto) 0.0, Baso % (Auto) 0.1, Absolute Neuts (auto) 16.7 H, Absolute Lymphs (auto) 1.90, Nucleated RBC % 0, Sodium 133 L, Potassium 4.4, Chloride 106, Carbon Dioxide 10.0 L, Anion Gap 17 H, BUN 14, Creatinine 0.98, Estim Creat Clear Calc 73.01, Est GFR (MDRD) Af Amer 89, Est GFR (MDRD) Non-Af 73, BUN/Creatinine Ratio 14.3, Glucose 414 H, Calcium 8.6 11/27/23 07:28: POC Glucose 410 H 11/27/23 08:51: Sodium 132 L, Potassium 4.1, Chloride 107, Carbon Dioxide 8.0 L*, Anion Gap 17 H, BUN 14, Creatinine 1.08 H, Estim Creat Clear Calc 66.25, Est GFR (MDRD) Af Amer 79, Est GFR (MDRD) Non-Af 65, BUN/Creatinine Ratio 13.0, Glucose 346 H, Calcium 8.6 11/27/23 11:06: POC Glucose 275 H Micro: Microbiology 11/26/23 00:42 Mucosa - Throat Streptococcus pyogenes (PCR) - Final
[2023-11-27] MEDS: 0.9% Normal Saline (1000mL) 1,000 ML 500 ML IV (13:42)
[2023-11-27 14:06] LABS: Anion Gap 10 (5-15); BUN 13 mg/dL (7-18); BUN/Creat Ratio 14.9 RATIO (10-20); Calcium,Total 7.7 mg/dL (8.5-10.1); Chloride 112 mmol/L (98-107); Creatinine, Serum 0.88 mg/dL (0.55-1.02); EST Glomerular Filtration Rate 83 mL/min (>60); Est Glom Filt Rate - Afr Amer 101 mL/min (>60); Glucose 293 mg/dL (74-106); Potassium 3.8 mmol/L (3.5-5.1); Sodium Level 137 mmol/L (136-145)
[2023-11-27] MEDS: 0.9% Normal Saline (1000mL) 1,000 ML 250 ML IV (15:04)
[2023-11-27] MEDS: Insulin Lispro 100 UNIT in 0.9% Normal Saline (100mL Bag) 99 ML 6.4 UNIT CONT INF (15:18)
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
[2023-11-27] MEDS: Dext 5%-0.45% NS 1,000 ML 150 ML IV (16:26)
[2023-11-27 16:31] LABS: Bedside Glucose 119 mg/dL (74-106)
[2023-11-27 16:32] LABS: Bedside Glucose 195 mg/dL (74-106)
[2023-11-27 16:32] LABS: Bedside Glucose 255 mg/dL (74-106)
[2023-11-27 17:05] LABS: Anion Gap 7 (5-15); BUN 12 mg/dL (7-18); BUN/Creat Ratio 14.2 RATIO (10-20); Calcium,Total 7.9 mg/dL (8.5-10.1); Chloride 114 mmol/L (98-107); Creatinine, Serum 0.84 mg/dL (0.55-1.02); EST Glomerular Filtration Rate 87 mL/min (>60); Est Glom Filt Rate - Afr Amer 105 mL/min (>60); Estimated Creatinine Clearance 85.18 ml/min; Glucose 105 mg/dL (74-106); Potassium 3.2 mmol/L (3.5-5.1); Sodium Level 138 mmol/L (136-145)
[2023-11-27 17:26] LABS: Bedside Glucose 85 mg/dL (74-106)
[2023-11-27 19:14] LABS: Bedside Glucose 92 mg/dL (74-106)
[2023-11-27 19:14] LABS: Bedside Glucose 92 mg/dL (74-106)
[2023-11-27 20:23] LABS: Bedside Glucose 72 mg/dL (74-106)
[2023-11-27 21:08] LABS: Anion Gap 6 (5-15); BUN 11 mg/dL (7-18); BUN/Creat Ratio 16.2 RATIO (10-20); Calcium,Total 7.6 mg/dL (8.5-10.1); Chloride 116 mmol/L (98-107); Creatinine, Serum 0.68 mg/dL (0.55-1.02); EST Glomerular Filtration Rate 111 mL/min (>60); Est Glom Filt Rate - Afr Amer 135 mL/min (>60); Estimated Creatinine Clearance 105.22 ml/min; Glucose 71 mg/dL (74-106); Sodium Level 141 mmol/L (136-145)
[2023-11-27] MEDS: Dextrose 50%-Water 25 GM/50 ML DISP.SYRIN IV (21:29)
[2023-11-27 21:36] LABS: Bedside Glucose 67 mg/dL (74-106)
[2023-11-27] MEDS: hydrOXYzine PAM 25 MG Capsule PO (22:11)
[2023-11-27 22:14] LABS: Bedside Glucose 112 mg/dL (74-106)
[2023-11-28] VITALS (10 sets, daily range): BP systolic 112–152; BP diastolic 59–112; PULSE 81–104; RESP 12–24; TEMP 36.4–36.7; O2SAT 97–100; BMI 28.5
[2023-11-28] MEDS: KCL 20MEQ in D5.45NS 20 MEQ/1,000 ML IV.SOLN. 125 MEQ IV (00:26)
[2023-11-28] MEDS: Potassium Chloride Oral Soln 20 MEQ/15 ML UDC 60 MEQ PO (00:27)
[2023-11-28] MEDS: Dextrose 50%-Water 25 GM/50 ML DISP.SYRIN IV (00:32)
[2023-11-28 01:15] LABS: Bedside Glucose 63 mg/dL (74-106)
[2023-11-28 01:15] LABS: Bedside Glucose 137 mg/dL (74-106)
[2023-11-28] MEDS: Ondansetron 4 MG/2 ML Vial IV ×2 (02:10→12:21)
[2023-11-28 02:26] LABS: Bedside Glucose 111 mg/dL (74-106)
[2023-11-28 02:54] LABS: Anion Gap 5 (5-15); BUN 9 mg/dL (7-18); BUN/Creat Ratio 13.9 RATIO (10-20); Calcium,Total 7.9 mg/dL (8.5-10.1); Chloride 114 mmol/L (98-107); Creatinine, Serum 0.65 mg/dL (0.55-1.02); EST Glomerular Filtration Rate 118 mL/min (>60); Est Glom Filt Rate - Afr Amer 143 mL/min (>60); Estimated Creatinine Clearance 110.07 ml/min; Glucose 116 mg/dL (74-106); Potassium 3.1 mmol/L (3.5-5.1); Sodium Level 140 mmol/L (136-145)
[2023-11-28] MEDS: Potassium Chloride 20mEq/100mL 20 MEQ/100 ML IV.SOLN. 100 MEQ IV BOLUS ×2 (03:20→04:20)
[2023-11-28 03:24] LABS: Bedside Glucose 104 mg/dL (74-106)
[2023-11-28 04:33] LABS: Bedside Glucose 94 mg/dL (74-106)
[2023-11-28 05:32] LABS: Bedside Glucose 86 mg/dL (74-106)
[2023-11-28 06:38] LABS: Bedside Glucose 103 mg/dL (74-106)
[2023-11-28] MEDS: metroNIDAZOLE 500 MG/100 ML BAG 100 MG IV ×2 (06:51→12:41)
[2023-11-28 07:05] LABS: Anion Gap 7 (5-15); BUN 5 mg/dL (7-18); BUN/Creat Ratio 8.2 RATIO (10-20); Calcium,Total 7.8 mg/dL (8.5-10.1); Chloride 109 mmol/L (98-107); Creatinine, Serum 0.61 mg/dL (0.55-1.02); EST Glomerular Filtration Rate 126 mL/min (>60); Est Glom Filt Rate - Afr Amer 152 mL/min (>60); Estimated Creatinine Clearance 117.91 ml/min; Glucose 406 mg/dL (74-106); Potassium 4.8 mmol/L (3.5-5.1); Sodium Level 134 mmol/L (136-145)
[2023-11-28 07:14] LABS: Bedside Glucose 115 mg/dL (74-106)
--- NOTE | 2023-11-28 07:18 | PCM.PN.HOSP ---
Reason for Visit Reason for Visit: Diagnoses Type 1 diabetes mellitus with ketoacidosis without coma (11/26/23) Type 1 diabetes mellitus with hyperglycemia (11/26/23) Unspecified appendicitis (11/26/23) Noninfective gastroenteritis and colitis, unspecified (11/26/23) Lower abdominal pain, unspecified (11/26/23) Nausea with vomiting, unspecified (11/26/23) Patient's noncompliance with other medical treatment and regimen due to unspecified reason (11/26/23) Objective Data Objective Data Vital Signs: Vital Signs Temp Pulse Resp BP Pulse Ox O2 Del Method 36.4 C L 88 16 132/81 H 100 Room Air 11/28/23 00:00 11/28/23 07:00 11/28/23 07:00 11/28/23 07:00 11/28/23 07:00 11/28/23 07:00 Oxygen Delivery Method Room Air Weight: 64.2 kg Body Mass Index (BMI) 28.5 Intake & Output: Intake and Output for Last 24 Hours 11/26/23 11/27/23 11/28/23 23:59 23:59 23:59 Intake Total 3636.52 / 3836.52 7153.33 / 7153.33 216.38 / 216.38 Output Total 1200 / 1500 300 / 300 Balance 3636.52 / 2636.52 5953.33 / 5653.33 -83.62 / -83.62 Lab / Micro Data 11/27/23 05:20 11/28/23 06:15 Labs: Laboratory Results - last 24 hr 11/27/23 07:28: POC Glucose 410 H 11/27/23 08:51: Sodium 132 L, Potassium 4.1, Chloride 107, Carbon Dioxide 8.0 L*, Anion Gap 17 H, BUN 14, Creatinine 1.08 H, Estim Creat Clear Calc 66.25, Est GFR (MDRD) Af Amer 79, Est GFR (MDRD) Non-Af 65, BUN/Creatinine Ratio 13.0, Glucose 346 H, Calcium 8.6 11/27/23 11:06: POC Glucose 275 H 11/27/23 13:42: POC Glucose 255 H 11/27/23 13:45: Sodium 137, Potassium 3.8, Chloride 112 H, Carbon Dioxide 15.0 L, Anion Gap 10, BUN 13, Creatinine 0.88, Estim Creat Clear Calc 81.30, Est GFR (MDRD) Af Amer 101, Est GFR (MDRD) Non-Af 83, BUN/Creatinine Ratio 14.9, Glucose 293 H, Calcium 7.7 L 11/27/23 15:13: POC Glucose 195 H 11/27/23 16:10: POC Glucose 119 H 11/27/23 16:25: Sodium 138, Potassium 3.2 L, Chloride 114 H, Carbon Dioxide 17.0 L, Anion Gap 7, BUN 12, Creatinine 0.84, Estim Creat Clear Calc 85.18, Est GFR (MDRD) Af Amer 105, Est GFR (MDRD) Non-Af 87, BUN/Creatinine Ratio 14.2, Glucose 105, Calcium 7.9 L 11/27/23 17:01: POC Glucose 85 11/27/23 17:53: POC Glucose 92 11/27/23 18:56: POC Glucose 92 11/27/23 19:53: POC Glucose 72 L 11/27/23 20:25: Sodium 141, Potassium 3.0 L, Chloride 116 H, Carbon Dioxide 19.0 L, Anion Gap 6, BUN 11, Creatinine 0.68, Estim Creat Clear Calc 105.22, Est GFR (MDRD) Af Amer 135, Est GFR (MDRD) Non-Af 111, BUN/Creatinine Ratio 16.2, Glucose 71 L, Calcium 7.6 L 11/27/23 21:15: POC Glucose 67 L 11/27/23 21:53: POC Glucose 112 H 11/27/23 22:46: Acetone Level SMALL H 11/28/23 00:29: POC Glucose 63 L 11/28/23 00:55: POC Glucose 137 H 11/28/23 02:05: POC Glucose 111 H 11/28/23 02:15: Sodium 140, Potassium 3.1 L, Chloride 114 H, Carbon Dioxide 21.0, Anion Gap 5, BUN 9, Creatinine 0.65, Estim Creat Clear Calc 110.07, Est GFR (MDRD) Af Amer 143, Est GFR (MDRD) Non-Af 118, BUN/Creatinine Ratio 13.9, Glucose 116 H, Calcium 7.9 L 11/28/23 03:05: POC Glucose 104 11/28/23 04:06: POC Glucose 94 11/28/23 05:14: POC Glucose 86 11/28/23 06:12: POC Glucose 103 11/28/23 06:15: Sodium 134 L, Potassium 4.8, Chloride 109 H, Carbon Dioxide 18.0 L, Anion Gap 7, BUN 5 L, Creatinine 0.61, Estim Creat Clear Calc 117.91, Est GFR (MDRD) Af Amer 152, Est GFR (MDRD) Non-Af 126, BUN/Creatinine Ratio 8.2 L, Glucose 406 H, Calcium 7.8 L 11/28/23 06:56: POC Glucose 115 H Micro: Microbiology 11/26/23 00:42 Mucosa - Throat Streptococcus pyogenes (PCR) - Final Assessment & Plan Assessment/Plan (1) DKA (diabetic ketoacidosis): QUALIFIERS: Diabetes mellitus type: type 1 Diabetes mellitus complication detail: without coma Qualified Code(s): E10.10 - Type 1 diabetes mellitus with ketoacidosis without coma (2) Type 1 diabetes mellitus with hyperglycemia: (3) Non-compliance: (4) Acute colitis: (5) Appendicitis: QUALIFIERS: Appendicitis type: unspecified Qualified Code(s): K37 - Unspecified appendicitis PLAN: Plan Acute DKA in type 1 diabetic. due to insulin pump running out, going to bed w/o insulin. Started on IVF and IV insulin. Got out of DKA yesterday and went to appear to go back into it again today. Patient did receive a dose of about 20 units of glargine this morning. Feel the patient is more and more likely to continue to slide into DKA so we will place patient back in the intensive care units and resume insulin drip as well as continue with IV fluids, NPO. I emphasized to the patient 11/26 that she needs to take full ownership over her diabetes as she is currently 23 years old with type 1 diabetes and the fact that she just pulled the insulin pump off when it ran out is rather meager excuse for her current issues. 11/27: Once again on DKA. Will initiate insulin glargine 30 units daily, Humalog 15 units with meals and sliding scale insulin. Acute Colitis Not felt to be appendicitis nor colitis by general surgery. on abx with levofloxacin and metronidazole and will continue given her ongoing leukocytosis. Gen Surg consulted. Feels less likely appendicitis. No imminent plans for surgery. Chronic conditions: History of asthma - Stable with no evidence of acute flare. Continue prn nebulizers. Depression with anxiety - Continue home regimen plus give prn Vistaril for breakthrough symptoms. History of cannabis abuse - Cannabis cessation will be strongly encouraged. VTE prophylaxis - enoxaparin Patient has been admitted to [facility] 14 times since 2018. I did not determine how many of those hospitalizations were related with DKA but I would imagine good number them are.
[2023-11-28] MEDS: Insulin Glargine-YFGN 100 UNIT/ML Pen 30 UNIT SC (08:40)
[2023-11-28] MEDS: Fluticasone 0.05% 1 SPRAY NASAL.SRY 2 SPRAY NASAL (08:40)
[2023-11-28] MEDS: Enoxaparin 40 MG/0.4 ML Syringe SC (08:41)
[2023-11-28] MEDS: levoFLOXacin IV 750 MG/150 ML BAG 100 MG IV (10:53)
[2023-11-28] MEDS: Insulin Lispro 100 UNIT/ML INSULN.PEN SC (12:16)
[2023-11-28] MEDS: Insulin Lispro 100 UNIT/ML INSULN.PEN 15 UNIT SC (12:16)
[2023-11-28 12:41] LABS: Bedside Glucose 216 mg/dL (74-106)
[2023-11-28 13:02] LABS: Anion Gap 14 (5-15); BUN 4 mg/dL (7-18); BUN/Creat Ratio 6.4 RATIO (10-20); Calcium,Total 8.7 mg/dL (8.5-10.1); Chloride 103 mmol/L (98-107); Creatinine, Serum 0.62 mg/dL (0.55-1.02); EST Glomerular Filtration Rate 124 mL/min (>60); Est Glom Filt Rate - Afr Amer 150 mL/min (>60); Estimated Creatinine Clearance 116.01 ml/min; Glucose 250 mg/dL (74-106); Sodium Level 136 mmol/L (136-145)
--- NOTE | 2023-11-28 13:56 | DS.PCM_ITS ---
Providers Date of Admission: 11/26/23 Primary Care Physician: Minnie Hodge Consultations 11/26/23 05:37 Consult: General Surgery Routine Consulting Provider: Emery Calle Reason for Consult: CT suggestive of early acute appendicitis plus colitis. EMERGENT Consult: No MD Notified: Yes Date Notified: 11/26/23 Time Notified: 05:37 Method of Notification: Text Reason For Visit: DKA Diagnosis Discharge Diagnosis (1) DKA (diabetic ketoacidosis): Status: Acute Code(s): E11.10 - Type 2 diabetes mellitus with ketoacidosis without coma Qualifiers: Diabetes mellitus type: type 1 Diabetes mellitus complication detail: without coma Qualified Code(s): E10.10 - Type 1 diabetes mellitus with ketoacidosis without coma (2) Type 1 diabetes mellitus with hyperglycemia: Status: Chronic Code(s): E10.65 - Type 1 diabetes mellitus with hyperglycemia (3) Non-compliance: Status: Chronic Code(s): Z91.199 - Patient's noncompliance with other medical treatment and regimen due to unspecified reason (4) Acute colitis: Status: Acute Code(s): K52.9 - Noninfective gastroenteritis and colitis, unspecified (5) Appendicitis: Status: Acute Code(s): K37 - Unspecified appendicitis Qualifiers: Appendicitis type: unspecified Qualified Code(s): K37 - Unspecified appendicitis Plan Acute DKA * in type 1 diabetic. due to insulin pump running out, going to bed w/o insulin. * Started on IVF and IV insulin. Got out of DKA yesterday and went to appear to go back into it again today. Patient did receive a dose of about 20 units of glargine this morning. Feel the patient is more and more likely to continue to slide into DKA so we will place patient back in the intensive care units and resume insulin drip as well as continue with IV fluids, NPO. * I emphasized to the patient 11/26 that she needs to take full ownership over her diabetes as she is currently 23 years old with type 1 diabetes and the fact that she just pulled the insulin pump off when it ran out is rather meager excuse for her current issues. * 11/27: Resolved from her second bout of DKA during this hospitalization. Will initiate insulin glargine 30 units daily, Humalog 15 units with meals and sliding scale insulin. * Patient states that she has insulin for insulin pump at home and will be getting a continuous glucometer at home. Additionally, she states that she has Levemir and prandial insulin if that is not available. She states that she also has an curtain hemmer automatic that she will be following up with. Acute Colitis * Not felt to be appendicitis nor colitis by general surgery. * on abx with levofloxacin and metronidazole and will continue given her ongoing leukocytosis. * Gen Surg consulted. Feels less likely appendicitis. No imminent plans for surgery. Chronic conditions: * History of asthma - Stable with no evidence of acute flare. Continue prn nebulizers. * Depression with anxiety - Continue home regimen plus give prn Vistaril for breakthrough symptoms. * History of cannabis abuse - Cannabis cessation will be strongly encouraged. VTE prophylaxis - enoxaparin Patient has been admitted to [facility] 14 times since 2018. I did not determine how many of those hospitalizations were related with DKA but I would imagine good number them are. Medications at Discharge Home Medications albuterol sulfate 90 mcg/actuation aerosol inhaler (Ventolin HFA) 2 puff inhalation Q4H PRN SHORTNES OF BREATH/WHEEZING 08/25/18 Ketone Urine Test (acetone (urine) test) #50 ea 11/05/21 fluticasone propionate 50 mcg/actuation nasal spray,suspension 2 spray intranas al DAILY NASAL CONGESTION 11/21/22 pen needle, diabetic 32 gauge x /32 (BD Ultra-Fine Opal Pen Needle) #120 ea 11/23/22 hydroxyzine pamoate 25 mg capsule (Vistaril) 25 mg PO QHS ITCHING #30 caps 0 01/13/23 insulin pump cartridge,automated dose,BT with controller subcutaneous (Omnipod 5 G6 Intro Kit (Gen 5) subcutaneous cartridge with controller) #1 ea 08/15/23 blood-glucose sensor (Dexcom G6 Sensor device) #9 ea 11/10/23 blood-glucose transmitter (Dexcom G6 Transmitter device) #1 ea 11/10/23 insulin aspart U-100 100 unit/mL subcutaneous solution 100 unit subcut ONCE #90 mL 11/10/23 insulin pump cart,automated,BT (Omnipod 5 G6 Pods (Gen 5) subcutaneous cartridge) #45 ea 11/10/23 levofloxacin 750 mg tablet 750 mg PO DAILY #4 tabs 05/10/24 metronidazole 500 mg tablet 500 mg PO Q8H #12 tabs 11/28/23 Physical Exam Const Constitutional Narrative: Up in bed. Nontoxic. Weight / BMI Weight Weight: 64.2 kg Body Mass Index (BMI) 28.5 ABG / Lab / Microbiology Data 11/27/23 05:20 11/28/23 12:10 Laboratory: Laboratory Results - last 24 hr 11/27/23 13:42: POC Glucose 255 H 11/27/23 13:45: Sodium 137, Potassium 3.8, Chloride 112 H, Carbon Dioxide 15.0 L , Anion Gap 10, BUN 13, Creatinine 0.88, Estim Creat Clear Calc 81.30, Est GFR (MDRD) Af Amer 101, Est GFR (MDRD) Non-Af 83, BUN/Creatinine Ratio 14.9, Glucose 293 H, Calcium 7.7 L 11/27/23 15:13: POC Glucose 195 H 11/27/23 16:10: POC Glucose 119 H 11/27/23 16:25: Sodium 138, Potassium 3.2 L, Chloride 114 H, Carbon Dioxide 17.0 L, Anion Gap 7, BUN 12, Creatinine 0.84, Estim Creat Clear Calc 85.18, Est GFR (MDRD) Af Amer 105, Est GFR (MDRD) Non-Af 87, BUN/Creatinine Ratio 14.2, Glucose 105, Calcium 7.9 L 11/27/23 17:01: POC Glucose 85 11/27/23 17:53: POC Glucose 92 11/27/23 18:56: POC Glucose 92 11/27/23 19:53: POC Glucose 72 L 11/27/23 20:25: Sodium 141, Potassium 3.0 L, Chloride 116 H, Carbon Dioxide 19.0 L, Anion Gap 6, BUN 11, Creatinine 0.68, Estim Creat Clear Calc 105.22, Est GFR (MDRD) Af Amer 135, Est GFR (MDRD) Non-Af 111, BUN/Creatinine Ratio 16.2, Glucose 71 L, Calcium 7.6 L 11/27/23 21:15: POC Glucose 67 L 11/27/23 21:53: POC Glucose 112 H 11/27/23 22:46: Acetone Level SMALL H 11/28/23 00:29: POC Glucose 63 L 11/28/23 00:55: POC Glucose 137 H 11/28/23 02:05: POC Glucose 111 H 11/28/23 02:15: Sodium 140, Potassium 3.1 L, Chloride 114 H, Carbon Dioxide 21.0, Anion Gap 5, BUN 9, Creatinine 0.65, Estim Creat Clear Calc 110.07, Est GFR (MDRD) Af Amer 143, Est GFR (MDRD) Non-Af 118, BUN/Creatinine Ratio 13.9, Glucose 116 H, Calcium 7.9 L 11/28/23 03:05: POC Glucose 104 11/28/23 04:06: POC Glucose 94 11/28/23 05:14: POC Glucose 86 11/28/23 06:12: POC Glucose 103 11/28/23 06:15: Sodium 134 L, Potassium 4.8, Chloride 109 H, Carbon Dioxide 18.0 L, Anion Gap 7, BUN 5 L, Creatinine 0.61, Estim Creat Clear Calc 117.91, Est GFR (MDRD) Af Amer 152, Est GFR (MDRD) Non-Af 126, BUN/Creatinine Ratio 8.2 L, Glucose 406 H, Calcium 7.8 L, Acetone Level SMALL H 11/28/23 06:56: POC Glucose 115 H 11/28/23 12:10: Sodium 136, Potassium 3.0 L, Chloride 103, Carbon Dioxide 19.0 L , Anion Gap 14, BUN 4 L, Creatinine 0.62, Estim Creat Clear Calc 116.01, Est GFR (MDRD) Af Amer 150, Est GFR (MDRD) Non-Af 124, BUN/Creatinine Ratio 6.4 L, Glucose 250 H, Calcium 8.7 11/28/23 12:16: POC Glucose 216 H Microbiology: Microbiology 11/26/23 00:42 Mucosa - Throat Streptococcus pyogenes (PCR) - Final D/C Instructions Discharge Diet: 2000 Calorie Control Diet Meaningful Use Info Meaningful Use Meaningful Use Diagnoses (Choose all that apply): None applicable Ischemic Stroke Statin Dosing Therapy Reference: STATIN DOSE THERAPY REFERENCE: * Patients > 75 years receive moderate or high dose statin therapy. * Patients 75 years or YOUNGER should receive HIGH intensity statin dose unless contraindicated. You will be required to document reason for non-treatment if statin daily dose does not meet guidelines. HIGH DOSE STATIN THERAPY DAILY Atorvastatin > than or = to 40 mg Rosuvastatin > than or = to 20 mg Amlodipine + Atorvastatin > than or = to 2.5/40 mg Ezetimibe + Simvastatin 10/80 mg Simvastatin 80mg Discharge Plan Admission Admit Date/Time: 11/26/23 02:06 Primary Reason for Your Visit: Diabetic ketoacidosis Attending Provider: Damien Villagran Primary Care Provider: Minnie Hodge Consulting Providers: David Rowe; Emery Calle Instructions Patient Instructions: Diabetes Low Blood Sugar Ch, Diabetes Insulin Pump Ch, Diabetes Food Tips Ch Additional Instructions / Restrictions: Please follow-up with your curtain hemmer automatic at your appointment that has been previously scheduled. If you have issues with your insulin pump, notify your primary care doctor or your curtain hemmer automatic. Is possible that he may need to revert back to using her Levemir and mealtime insulin until that is resolved. Informing that he will be having a continuous glucose monitor. If that does not seem to be functioning, please check your blood sugar with meals and at night and as needed. There is also concern that he may have had colitis (inflammation of your colon). Will be on antibiotics for 4 more days. I recommend continuing those antibiotics until those are completed. Discharge Orders/Prescriptions Prescriptions: New levofloxacin 750 mg tablet 750 mg PO DAILY Qty: 4 0RF metronidazole 500 mg tablet 500 mg PO Q8H Qty: 12 0RF Continued hydroxyzine pamoate [Vistaril] 25 mg capsule 25 mg PO QHS Qty: 30 6RF insulin aspart U-100 100 unit/mL solution 100 unit subcut ONCE Qty: 90 0RF (DME) Dexcom G6 Sensor Device See Rx Instructions .Route Qty: 9 0RF Rx Instructions: 1 sensor q 10 days (DME) Dexcom G6 Transmitter Device See Rx Instructions .Route Qty: 1 0RF Rx Instructions: As directed (DME) Omnipod 5 G6 Pods (Gen 5) Cartridge See Rx Instructions .Route Qty: 45 0RF Rx Instructions: change every 48-72 hours albuterol sulfate [Ventolin HFA] 18 GM HFA aerosol inhaler 2 puff inhalation Q4H PRN (Reason: SHORTNES OF BREATH/WHEEZING) fluticasone propionate 50 mcg/actuation spray,suspension 2 spray INTRANASAL DAILY (DME) pen needle, diabetic [BD Ultra-Fine Opal Pen Needle] 32 gauge x 5/32 needle See Rx Instructions .ROUTE .MEDSUPPLY Qty: 120 5RF Rx Instructions: 4 times daily (DME) Ketone Urine Test Strip See Rx Instructions .ROUTE .MEDSUPPLY Qty: 50 1RF Rx Instructions: once/day (DME) Omnipod 5 G6 Intro Kit (Gen 5) Cartridge See Rx Instructions .Route Qty: 1 0RF Rx Instructions: As directed Discontinued amoxicillin-pot clavulanate 875-125 mg tablet 1 tab PO BID 7 Days Qty: 14 0RF oxycodone-acetaminophen [Percocet] 5-325 mg tablet 1 tab PO Q6H PRN (Reason: pain) 3 Days Qty: 12 0RF Referrals / Follow Up: Minnie Hodge [Primary Care Provider] - Within 2 Weeks Disposition Disposition (needs filled in before D/C Order can be placed): Home, Self Care Charges/Coding Visit Charges Inpatient E&M: 60299 Disch Hosp
--- NOTE | 2023-11-28 14:26 | CASEMGMT ---
Social Work- SW met with pt to discuss pt desire for medicaid and also to update that SW requested printed scripts from [facility] to take to [facility] for prescription assistance. SW will provide scripts to pt when received. MARCO ANTONIO Dave
--- NOTE | 2023-11-28 14:27 | CASEMGMT ---
SARA CM into pt room, provided pt with a rx for a BGM. Pt is aware of where to get this filled. Pt denies any further needs.
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
== END 2023-11-28 16:29 | disposition home or self-care (01) | DRG 637 ==
LOC: ED 11-26 01:52 → ICU 11-26 08:12 → MS3 11-27 02:12 → ICU 11-27 12:30 → MS3 11-28 13:58
PROVIDERS: Admitting Provider Internal Medicine; Emergency Provider Emergency Medicine
DX: E10.10 Type 1 diabetes mellitus with ketoacidosis without coma (principal); E43 Unspecified severe protein-calorie malnutrition; Z79.4 Long term (current) use of insulin; F32.A Depression, unspecified; F41.9 Anxiety disorder, unspecified; Z91.148 Patient's other noncompliance with medication regimen for other reason; T38.3X6D Underdosing of insulin and oral hypoglycemic [antidiabetic] drugs, subsequent encounter; E66.3 Overweight; Z68.29 Body mass index [BMI] 29.0-29.9, adult; Z79.891 Long term (current) use of opiate analgesic; Z86.19 Personal history of other infectious and parasitic diseases; Z96.41 Presence of insulin pump (external) (internal)
CPT/HCPCS: 36415; 36569; 74176; 80048; 80076; 81001; 81025; 82009; 82803; 82962; 83036; 83690; 83735; 85025; 87651; 99283; J7030; A4216; J2405; J7799

== ENCOUNTER 2024-05-12 12:10 | Emergency (ER) | payer OTHER, SELFPAY ==
[2024-05-12 12:12] VITALS: BP 125/83; PULSE 145; RESP 18; TEMP 36.2; O2SAT 99; BMI 30.7
--- NOTE | 2024-05-12 12:58 | CT_ITS ---
STUDY: CT ABDOMEN AND PELVIS WITH CONTRAST REASON FOR EXAM: Female, 24 years old. abdominal pain. Two-week history of nausea and vomiting. RADIATION DOSAGE (If Supplied By Facility): CTDIvol = ( 13.70 ) mGy, DLP = ( 723.70 ) mGycm TECHNIQUE: Transaxial images were obtained from the dome of the diaphragm to the symphysis pubis without oral contrast. IV 100mL Isovue-300 was administered. Sagittal and coronal images were reconstructed. Individualized dose optimization techniques were used for this CT. COMPARISON: Comparison is made with prior study of November 26, 2023. FINDINGS: The visualized lung bases are unremarkable. The visualized portions of the heart are within normal limits. Normal liver. Normal gallbladder and extrahepatic biliary system. Normal spleen. Normal pancreas. Normal bilateral adrenal glands. Normal right kidney. Normal left kidney. Normal visualized stomach. Normal small intestine. Moderate amount of fecal material is seen in the colon. The appendix is visualized and appears normal. Normal abdominal aorta. Normal inferior vena cava. There is a small retroperitoneal lymphadenopathy with enlarged nodes no greater than 10mm in the short axis diameter. Normal urinary bladder. Normal abdominal wall. Normal osseous structures. CT/Abdomen/Pelvis W IV Cont ONLY IMPRESSION: Moderate amount of fecal material is seen in the colon. Electronically Signed: Akil Deutsch MD at 14:28 EDT ,
--- NOTE | 2024-05-12 13:17 | EDS_ITS ---
HPI History of Present Illness Chief Complaint: Nausea/Vomiting/Diarrhea Narrative Narrative: Chief complaint and HPI: Nausea and vomiting. 24-year-old female who is a type I diabetic presents for evaluation of nausea and vomiting x 2 weeks. Patient states she was seen at urgent care and diagnosed with a viral illness. She states the nausea and vomiting has continued. She endorses some mild lower abdominal pain. She states she did have a fever 4 days ago of 103 ?F. No fever since. Patient states her sugars have been high in the 200s. She has been appropriately distributing insulin. She has a Nexplanon in her arm and therefore states she does not think she is . She has not taken a test. She is sexually active. She denies any pelvic complain, vaginal bleeding, vaginal discharge. She denies any URI type symptoms, cough, chest pain, dysuria. Review of systems: See HPI Medications: As listed on the chart Allergies: As listed on the chart PFSH: Per chart Vital signs: As listed on the chart. Reviewed. Physical exam: Gen: A&O x3, NAD Head: Normocephalic, atraumatic Eyes: No sclera icterus, conjunctiva clear ENT: Moist mucous membranes Neck: Trachea midline, No JVD CV: RRR, no murmurs, no peripheral edema Resp: Lungs CTA BL, no w/r/c GI: Abd soft, non-distended, minimally tender in the bilateral lower quadrant, no r/r/g Musc: Full ROM, no deformity Skin: Warm, dry Neuro: Alert, oriented, grossly intact, sensation intact Psych: Cooperative, appropriate mood and affect [facility] Medical History Anxiety and depression Asthma Cannabis hyperemesis syndrome concurrent with and due to cannabis abuse Diabetes type 1, controlled Diabetic ketoacidosis DKA, type 1 History of marijuana use Hypokalemia Hypophosphatemia Implanon in place Insulin pump titration Presence of insulin pump Tachycardia Home Medications ?Medication ?Instructions ?Recorded ?Last Taken ?Type albuterol sulfate 90 mcg/actuation 2 puff inhalation Q4H PRN SHORTNES 08/25/18 03/02/23 History aerosol inhaler (Ventolin HFA) OF BREATH/WHEEZING Ketone Urine Test (acetone (urine) #50 ea 11/05/21 Unknown Rx test) fluticasone propionate 50 2 spray intranasal DAILY NASAL 11/21/22 02/12/23 History mcg/actuation nasal CONGESTION spray,suspension pen needle, diabetic 32 gauge x #120 ea 11/23/22 Unknown Rx (BD Ultra-Fine Opal Pen Needle) hydroxyzine pamoate 25 mg capsule 25 mg PO QHS ITCHING #30 caps 01/13/23 02/12/23 Rx (Vistaril) insulin pump cartridge,automated #1 ea 08/15/23 Unknown Rx dose,BT with controller subcutaneous (Omnipod 5 G6 Intro Kit (Gen 5) subcutaneous cartridge with controller) blood-glucose sensor (Dexcom G6 #9 ea 11/10/23 Unknown Rx Sensor device) blood-glucose transmitter (Dexcom #1 ea 11/10/23 Unknown Rx G6 Transmitter device) insulin pump cart,automated,BT #45 ea 11/10/23 Unknown Rx (Omnipod 5 G6 Pods (Gen 5) subcutaneous cartridge) levofloxacin 750 mg tablet 750 mg PO DAILY #4 tabs 11/28/23 Unknown Rx metronidazole 500 mg tablet 500 mg PO Q8H #12 tabs 11/28/23 Unknown Rx insulin lispro 100 unit/mL 100 unit subcut DAILY #90 mL 12/30/23 Unknown Rx subcutaneous solution (Humalog U-100 Insulin) metoclopramide HCl 5 mg tablet 5 mg PO DAILY PRN nausea and 05/12/24 Unknown Rx (Reglan) vomiting 3 days #9 tabs Allergy/AdvReac Type Severity Reaction Status Date / Time bee venom protein (honey Allergy Severe Anaphylaxis Verified 05/12/24 12:11 bee) (bee stings) Sulfa (Sulfonamide Allergy Unknown Verified 05/12/24 12:11 Antibiotics) prednisone AdvReac Vomiting Verified 05/12/24 12:11 Family History Grandmother Diabetes Sister Asthma Brother Asthma Mother Heart disease Surgical History History of placement of ear tubes Social History household members: family Smoking Status: Never smoker second hand exposure: No alcohol intake: never substance use type: other details: Cannabis, last use ~ 1 month prior, ingested. EXAM Physical Exam Const Vital Signs: 05/12/24 12:12 05/12/24 14:21 05/12/24 15:16 Temperature 97.2 F L 98 F Temperature Source Temporal Pulse Rate 145 H 99 78 Respiratory Rate 18 20 H 16 Blood Pressure 125/83 H 104/75 108/65 Blood Pressure Mean 97 84 79 Pulse Ox 99 99 99 Oxygen Delivery Method Room Air Room Air MDM MDM MDM Narrative Medical decision making narrative: 24-year-old female presents for evaluation of 2 weeks of nausea and vomiting. Differential diagnosis includes but is not limited to viral illness, gastroenteritis, electrolyte abnormality, FRANKLIN, DKA, UTI. Suspect less likely appendicitis or intra-abdominal pathology however that is on the differential. NS bolus and Zofran given. Labs ordered including CT abdomen/pelvis. CBC without leukocytosis or anemia. CMP without anion gap, FRANKLIN, transaminitis. Patient does have elevated glucose at 213. Lipase unremarkable. UA negative for UTI but positive for glucose. Patient is a known diabetic. She does have ketones which is both consistent with dehydration as well as diabetes. Urine negative. She has moderate acetone but overall is negative for DKA without a gap. CT abdomen and pelvis without any acute process other than stool in the colon. On reexamination, patient states her nausea has improved. She has not vomited here in the emergency department. Her tachycardia has improved with fluids. At this point in time, no clear etiology for patient's symptoms. May be secondary to viral gastroenteritis versus gastroparesis with her diabetes. Patient was updated on all her results as well as on the plan to discharge home. Will send her home with a couple days worth of Reglan. This will help with her nausea as well as for possible gastroparesis. Patient states that she does have a sick day protocol with her diabetes. She states she checks her glucose every hour. She corrects her glucose as needed with insulin. Patient was educated to continue this. She was told to return back to the ED if symptoms change or worsen. She confirmed understanding of plan. Follow-up with her PCP as well as fiber technologist. She confirmed understanding. Impression: 1. Nausea and vomiting 2. Hyperglycemia with history of type 1 diabetes Lab Data Labs: Laboratory Results - last 24 hr 05/12/24 05/12/24 13:16 13:29 WBC 9.5 RBC 5.25 Hgb 14.6 Hct 43.9 MCV 83.6 MCH 27.8 MCHC 33.3 RDW Std Deviation 40.5 RDW Coeff of Marilynn 13.2 Plt Count 337 MPV 9.0 Immature Gran % (Auto) 0.200 Neut % (Auto) 84.8 H Lymph % (Auto) 10.3 L [place] % (Auto) 3.6 Eos % (Auto) 0.6 Baso % (Auto) 0.5 Absolute Neuts (auto) 8.0 H Absolute Lymphs (auto) 0.98 Nucleated RBC % 0 Sodium 138 Potassium 3.7 Chloride 108 H Carbon Dioxide 21.0 Anion Gap 9 BUN 18 Creatinine 0.76 Estim Creat Clear Calc 93.87 Est GFR (MDRD) Af Amer 118 Est GFR (MDRD) Non-Af 97 BUN/Creatinine Ratio 23.6 H Glucose 213 H Calcium 9.4 Total Bilirubin 1.00 AST 16 ALT 19 Alkaline Phosphatase 97 Total Protein 7.7 Albumin 3.9 Globulin 3.8 Albumin/Globulin Ratio 1.0 Lipase 16 Urine Color Yellow Urine Clarity Clear Urine pH 6.0 Ur Specific [place] 1.025 Urine Protein 30 H Urine Glucose (UA) 1000 H Urine Ketones 150 A* Urine Occult Blood 10 H Urine Nitrite Negative Urine Bilirubin Negative Urine Urobilinogen Normal Ur Leukocyte Esterase 25 H Urine RBC 0-5 SEEN Urine WBC 0-5 SEEN Ur Squamous Epith Cells 5-10 SEEN Urine Bacteria RARE Hyaline Casts 5-10 SEEN Urine Mucus 1+ Urine Test Negative Acetone Level MODERATE H Radiography Diagnostic Testing: Clinical Impression(s) from Imaging Studies Abdomen/Pelvis CT 05/12/24 12:58 IMPRESSION: Moderate amount of fecal material is seen in the colon. Electronically Signed: Akil Deutsch MD at 14:28 EDT , Discharge Plan Triage Chief Complaint: Nausea/Vomiting/Diarrhea ED Provider: Rony Delgadillo Dx/Rx/DC Orders Clinical Impression: Nausea & vomiting, Hyperglycemia due to diabetes mellitus Instructions: ED Diet Vomiting Diarrhea, ED Gastroenteritis, Viral (Adult), ED Diabetic Gastroparesis Prescriptions: New metoclopramide HCl [Reglan] 5 mg tablet 5 mg PO DAILY PRN (Reason: nausea and vomiting) 3 Days Qty: 9 0RF No Action hydroxyzine pamoate [Vistaril] 25 mg capsule 25 mg PO QHS Qty: 30 6RF (DME) Dexcom G6 Sensor Device See Rx Instructions .Route Qty: 9 0RF Rx Instructions: 1 sensor q 10 days (DME) Dexcom G6 Transmitter Device See Rx Instructions .Route Qty: 1 0RF Rx Instructions: As directed (DME) Omnipod 5 G6 Pods (Gen 5) Cartridge See Rx Instructions .Route Qty: 45 0RF Rx Instructions: change every 48-72 hours albuterol sulfate [Ventolin HFA] 18 GM HFA aerosol inhaler 2 puff inhalation Q4H PRN (Reason: SHORTNES OF BREATH/WHEEZING) fluticasone propionate 50 mcg/actuation spray,suspension 2 spray INTRANASAL DAILY (DME) pen needle, diabetic [BD Ultra-Fine Opal Pen Needle] 32 gauge x 5/32 needle See Rx Instructions .ROUTE .MEDSUPPLY Qty: 120 5RF Rx Instructions: 4 times daily levofloxacin 750 mg tablet 750 mg PO DAILY Qty: 4 0RF metronidazole 500 mg tablet 500 mg PO Q8H Qty: 12 0RF (DME) Ketone Urine Test Strip See Rx Instructions .ROUTE .MEDSUPPLY Qty: 50 1RF Rx Instructions: once/day (DME) Omnipod 5 G6 Intro Kit (Gen 5) Cartridge See Rx Instructions .Route Qty: 1 0RF Rx Instructions: As directed insulin lispro [Humalog U-100 Insulin] 100 unit/mL solution 100 unit subcut DAILY Qty: 90 1RF Stand Alone Forms: ED Work / School Excuse Primary Care Provider: Minnie Hodge Referrals: Minnie Hodge [Primary Care Provider] - 3-5 Days Activity Restrictions/Additional Instructions: Follow-up with your fiber technologist. Make sure that you are following your sick day/urine ketone protocol. Return back to the ED if symptoms change or worsen. Print Language: Hong Konger Disposition Disposition: Home, Self Care Discharge Date/Time: 05/12/24 15:16
[2024-05-12 13:22] LABS: Absolute Lymphocyte Count 0.98 X10^3/uL (0.83-4.51); Basophil# 0.05 X10^3/uL; Basophil% 0.5 % (0-1); Eosinophil# 0.06 X10^3/uL; Eosinophils% 0.6 % (0-5); Hematocrit 43.9 % (37-47); Hemoglobin 14.6 g/dL (12.0-15.0); Lymphocyte # 0.98 X10^3/ul (0.83-4.51); Lymphocyte % 10.3 % (19-41); Mean Corp Hgb Conc 33.3 g/dL (32-36); Mean Corpuscular Hgb 27.8 pg (27.0-32.0); Mean Corpuscular Volume 83.6 fL (81-99); Monocyte# 0.34 X10^3/uL; Monocyte% 3.6 % (0-10); NRBC Flagged by Analyzer 0 % (0-5); Neutrophil # 8.04 X10^3/uL (2.7-7.7); Neutrophil % 84.8 % (47-70); Platelet Count 337 K/mm3 (150-450); RBC Distribution Width CV 13.2 % (11.6-14.6); RBC Distribution Width SD 40.5 fl (35.1-43.9); Red Blood Count 5.25 M/mm3 (4.2-5.4); White Blood Count 9.5 K/mm3 (4.4-11.0)
[2024-05-12] MEDS: Ondansetron 4 MG/2 ML Vial IV (13:31)
[2024-05-12] MEDS: 0.9% Normal Saline (1000mL) 1,000 ML 999 ML IV (13:31)
[2024-05-12 13:42] LABS: Color, Urine Yellow (Yellow); Glucose, Dipstick 1000 mg/dl (Normal); Leukocyte Esterase-Dipstick 25 /ul (Negative); Nitrite-Dipstick Negative (Negative); Occult Blood-Urine 10 /ul (Negative); Protein-Dipstick 30 mg/dl (Negative); Specific Gravity, Urine 1.025 (1.002-1.030); Urine Bilirubin Dipstick Negative (Negative); Urine Clarity Clear (Clear); Urine Urobilinogen Normal (Normal)
[2024-05-12 13:43] LABS: Ketone-Dipstick 150 mg/dl (Negative)
[2024-05-12 13:54] LABS: Internal QC Validated? YES +Cl - CLEAR BKGD; Pregnancy, Urine Negative Negative; Record Kit Lot#,Urine Preg 869294
[2024-05-12 13:57] LABS: Red Blood Cells-Urine 0-5 SEEN /hpf (0-5); White Blood Cells 0-5 SEEN /hpf (0-5)
[2024-05-12 13:58] LABS: Bacteria RARE /hpf (None Seen); Mucous, Urine 1+ /hpf (<or=2+); Squamous Epithelial Cells - UA 5-10 SEEN /hpf (5-10)
[2024-05-12 13:59] LABS: Hyaline Cast 5-10 SEEN /lpf (0-5)
[2024-05-12 14:07] LABS: AST(SGOT) 16 U/L (15-37); Alanine Aminotransfer ALT/SGPT 19 U/L (13-56); Albumin, Serum 3.9 g/dL (3.2-5.0); Alkaline Phosphatase 97 U/L (45-117); Anion Gap 9 (5-15); BUN 18 mg/dL (7-18); BUN/Creat Ratio 23.6 RATIO (10-20); Calcium,Total 9.4 mg/dL (8.5-10.1); Chloride 108 mmol/L (98-107); Creatinine, Serum 0.76 mg/dL (0.55-1.02); EST Glomerular Filtration Rate 97 mL/min (>60); Est Glom Filt Rate - Afr Amer 118 mL/min (>60); Estimated Creatinine Clearance 93.87 ml/min; Globulin 3.8 g/dL (2.2-4.2); Glucose 213 mg/dL (74-106); Lipase 16 U/L (13-75); Potassium 3.7 mmol/L (3.5-5.1); Protein, Total 7.7 g/dL (6.4-8.2); Sodium Level 138 mmol/L (136-145)
[2024-05-12 14:21] VITALS: BP 104/75; PULSE 99; RESP 20; O2SAT 99
[2024-05-12 15:16] VITALS: BP 108/65; PULSE 78; RESP 16; TEMP 36.6; O2SAT 99
== END 2024-05-12 15:16 | disposition home or self-care (01) ==
PROVIDERS: Emergency Provider Surgery; Visit Provider Surgery
DX: R11.2 Nausea with vomiting, unspecified (principal); E10.65 Type 1 diabetes mellitus with hyperglycemia
CPT/HCPCS: 74177; 80053; 81001; 81025; 82009; 83690; 85025; 87631; 96361; 96374; 96376; 99284; J7030; Q9967; A4216; J2405

== ENCOUNTER 2024-05-13 00:25 | Observation (INO) | payer MEDICAID, SELFPAY ==
[2024-05-13] VITALS (25 sets, daily range): BP systolic 94–145; BP diastolic 57–97; PULSE 82–119; RESP 16–29; TEMP 36.4–37.1; O2SAT 96–100; BMI 32.4; BMI 29.9
--- NOTE | 2024-05-13 00:46 | EDS_ITS ---
HPI HPI - GI History of Present Illness Chief Complaint: Nausea/Vomiting Narrative Narrative: 24-year-old female past medical history of diabetes mellitus, on short acting and long-acting insulin presents again to the emergency department with nausea, vomiting, and diarrhea. She states that for 2 weeks her sugars have been high and she has been experiencing fever, nausea and vomiting especially and lower abdominal pain. She was seen in the emergency department at around noon yesterday, just over 12 hours ago. She had a workup and was given IV fluids, sent home on Reglan, and discharged. She also had a CT scan of her abdomen and pelvis. She states that after she got home, she took the medication, and her symptoms worsen. She is having nausea and vomiting with dry heaving, and started having diarrhea. [facility] Medical History (Updated 05/13/24 @ 03:[address] David Rowe, ) Insulin dependent type 1 diabetes mellitus Tachycardia Diabetic ketoacidosis Hx of type 1 diabetes mellitus Non-compliance DKA (diabetic ketoacidosis) Type 1 diabetes mellitus with hyperglycemia Hypokalemia Hypophosphatemia Cannabis hyperemesis syndrome concurrent with and due to cannabis abuse DKA, type [address] History of marijuana use Anxiety and depression Insomnia Numbness and tingling Insulin pump titration Presence of insulin pump History of hepatitis A Asthma Diabetes type 1, controlled Home Medications ?Medication ?Instructions ?Recorded ?Last Taken ?Type albuterol sulfate 90 mcg/actuation 2 puff inhalation Q4H PRN SHORTNES 08/25/18 03/02/23 History aerosol inhaler (Ventolin HFA) OF BREATH/WHEEZING Ketone Urine Test (acetone (urine) #50 ea 11/05/21 Unknown Rx test) fluticasone propionate 50 2 spray intranasal DAILY NASAL 11/21/22 02/12/23 History mcg/actuation nasal CONGESTION spray,suspension pen needle, diabetic 32 gauge x #120 ea 11/23/22 Unknown Rx (BD Ultra-Fine Opal Pen Needle) hydroxyzine pamoate 25 mg capsule 25 mg PO QHS ITCHING #30 caps 01/13/23 02/12/23 Rx (Vistaril) insulin pump cartridge,automated #1 ea 08/15/23 Unknown Rx dose,BT with controller subcutaneous (Omnipod 5 G6 Intro Kit (Gen 5) subcutaneous cartridge with controller) blood-glucose sensor (Dexcom G6 #9 ea 11/10/23 Unknown Rx Sensor device) blood-glucose transmitter (Dexcom #1 ea 11/10/23 Unknown Rx G6 Transmitter device) insulin pump cart,automated,BT #45 ea 11/10/23 Unknown Rx (Omnipod 5 G6 Pods (Gen 5) subcutaneous cartridge) insulin lispro 100 unit/mL 100 unit subcut DAILY #90 mL 12/30/23 Unknown Rx subcutaneous solution (Humalog U-100 Insulin) metoclopramide HCl 5 mg tablet 5 mg PO DAILY PRN nausea and 05/12/24 Unknown Rx (Reglan) vomiting 3 days #9 tabs Allergy/AdvReac Type Severity Reaction Status Date / Time bee venom protein (honey Allergy Severe Anaphylaxis Verified 05/12/24 12:11 bee) (bee stings) Sulfa (Sulfonamide Allergy Unknown Verified 05/12/24 12:11 Antibiotics) prednisone AdvReac Vomiting Verified 05/12/24 12:11 Family History Grandmother Diabetes Sister Asthma Brother Asthma Mother Heart disease Surgical History History of placement of ear tubes Social History household members: family Smoking Status: Never smoker second hand exposure: No alcohol intake: never substance use type: other details: Cannabis, last use ~ 1 month prior, ingested. ROS ROS ED ROS Narrative Constitutional: No fever, no chills. HEENT: No sore throat. No neck pain. No loss of vision. No rhinorrhea. Cardiovascular: No chest pain. No palpitations. No pedal edema. Respiratory: No cough, no shortness of breath. Abdominal: No abdominal pain. Nausea, vomiting, diarrhea. Genitourinary: No dysuria. No hematuria. Musculoskeletal: No myalgias. No arthralgias. Neurologic: No headaches. No dizziness. No lightheadedness. Skin: No rash. No change in color. EXAM Physical Exam Narrative Exam Narrative: Afebrile. Vital signs noted. Regular rate and rhythm. Lungs clear to auscultation bilaterally. Abdomen soft nontender with normal active bowel sounds. She is dry heaving on examination as well and was able to sit up. Neurological examination is nonfocal and nonlateralizing. She was able to ambulate to the cot and to her room. Const Vital Signs: 05/13/24 00:26 05/13/24 02:33 05/13/24 03:14 Temperature 97.7 F L 98.1 F Temperature Source Oral Pulse Rate 88 109 H Respiratory Rate 16 25 H Blood Pressure 117/66 145/78 H 125/97 H Blood Pressure Mean 83 100 106 Pulse Ox 100 100 MDM MDM MDM Narrative Medical decision making narrative: Differential diagnosis includes but not limited to rapid transit secondary to Reglan that she was given versus gastroenteritis versus diabetic ketoacidosis versus gastroparesis. I reviewed her laboratory work from earlier in the day, as well as the CT scan. She had a moderate amount of fecal material in her colon, but her CT was otherwise negative for obstruction. While her blood sugar at that time was elevated above 200, she had a normal anion gap but she had mo derate acetone levels. She had been given IV fluids and it was not thought that she was in diabetic ketoacidosis. I will repeat her laboratories and administered Zofran for nausea at this time. I reviewed her laboratory work from today and now she has a leukocytosis of 14.4 which may be demargination from her vomiting. She did state that she went home and took her insulin as she had been doing so previously. Hemoglobin 14.3 and hematocrit 44.6. Platelet count normal at 388. Sodium normal at 137 with a potassium of 4.1, BUN of 16 and creatinine 0.98, no dehydration. Glucose is elevated at 441 and now she has an anion gap of 20. Concern would be for diabetic ketoacidosis with her continued vomiting at home. I will add serum acetone and a venous blood gas. I ordered IV fluids 2 L to be infused, and additionally we will start her on insulin drip. Lipase is low at 12, no significant change/increase from prior. Serum acetone level is moderate. On her venous blood gas, she has a pH of 7.03, with a bicarb of 8.9. At this point in time, she will require admission to the ICU for her diabetic ketoacidosis. Patient was discussed with Dr. Fallon. Disposition is admit to the ICU in guarded condition. History & Record Review Discussion w/independent historian: Patient Lab Data Attestation: I reviewed the patient's lab results. Labs: Laboratory Results - last 24 hr 05/13/24 05/13/24 01:22 03:09 WBC 14.4 H RBC 5.06 Hgb 14.3 Hct 44.6 MCV 88.1 D MCH 28.3 MCHC 32.1 RDW Std Deviation 43.1 RDW Coeff of Marilynn 13.4 Plt Count 388 MPV 9.1 Immature Gran % (Auto) 0.600 Neut % (Auto) 89.3 H Lymph % (Auto) 7.1 L [place] % (Auto) 2.4 Eos % (Auto) 0.1 Baso % (Auto) 0.5 Absolute Neuts (auto) 12.9 H Absolute Lymphs (auto) 1.03 Nucleated RBC % 0 Sodium 137 Potassium 4.1 Chloride 104 Carbon Dioxide 13.0 L Anion Gap 20 H BUN 16 Creatinine 0.98 Estim Creat Clear Calc 74.89 Est GFR (MDRD) Af Amer 88 Est GFR (MDRD) Non-Af 72 BUN/Creatinine Ratio 16.2 Glucose 441 H Calcium 9.7 Magnesium 2.0 Total Bilirubin 1.30 H AST 14 L ALT 22 Alkaline Phosphatase 108 Total Protein 8.6 H Albumin 4.6 Globulin 4.0 Albumin/Globulin Ratio 1.2 Lipase 12 L Acetone Level MODERATE H POC Glucose 320 H ABG Data ABG results: ABG 05/13/24 02:40 Specimen Type LUIS Sample Site Not entered VBG pH 7.05 L* VBG pO2 61 H VBG HCO3 9 L VBG Total CO2 10 L VBG O2 Sat (Calc) 80 H VBG Base Excess -22 L POC Mix VBG pCO2 Pt Tmp 32.0 L O2 Delivery Device Room Air Crit Call To/Read Back Yes Blood Gas Notified Whom [facility] Blood Gas Notified Time 02:41:34 Management Discussion w/another healthcare provider: Hospitalist (Dr. Fallon) Critical Care Time Critical Care Time: Yes Critical care time (excluding procedures): 30-74 minutes (31 minutes), Including time spent:, Discussing w/Patient &/or Family/Alternative Medicine Practitioner, Discussing w/Consultants, Arranging Admission or Transfer and Performing Direct Patient Care at Bedside Discharge Plan Dx/Rx/DC Orders Clinical Impression: Diabetic ketoacidosis, Nausea & vomiting, Leukocytosis Disposition Disposition: Acute Care Hospital [facility] Discharge Date/Time: 05/13/24 03:54
[2024-05-13] MEDS: Ondansetron 4 MG/2 ML Vial IV ×2 (01:03→04:46)
[2024-05-13 01:29] LABS: Absolute Lymphocyte Count 1.03 X10^3/uL (0.83-4.51); Absolute Neutrophil Count 12.9 X10^3/uL (2.0-7.7); Basophil# 0.07 X10^3/uL; Basophil% 0.5 % (0-1); Eosinophil# 0.01 X10^3/uL; Eosinophils% 0.1 % (0-5); Hematocrit 44.6 % (37-47); Hemoglobin 14.3 g/dL (12.0-15.0); Lymphocyte # 1.03 X10^3/ul (0.83-4.51); Lymphocyte % 7.1 % (19-41); Mean Corp Hgb Conc 32.1 g/dL (32-36); Mean Corpuscular Hgb 28.3 pg (27.0-32.0); Mean Corpuscular Volume 88.1 fL (81-99); Mean Platelet Vol. 9.1 fl (6.2-12.0); Monocyte# 0.34 X10^3/uL; Monocyte% 2.4 % (0-10); NRBC Flagged by Analyzer 0 % (0-5); Neutrophil % 89.3 % (47-70); Platelet Count 388 K/mm3 (150-450); RBC Distribution Width CV 13.4 % (11.6-14.6); RBC Distribution Width SD 43.1 fl (35.1-43.9); Red Blood Count 5.06 M/mm3 (4.2-5.4); White Blood Count 14.4 K/mm3 (4.4-11.0)
[2024-05-13 01:50] LABS: ALB/GLOB Ratio 1.2 RATIO (0.9-2.4); AST(SGOT) 14 U/L (15-37); Alanine Aminotransfer ALT/SGPT 22 U/L (13-56); Albumin, Serum 4.6 g/dL (3.2-5.0); Alkaline Phosphatase 108 U/L (45-117); Anion Gap 20 (5-15); BUN 16 mg/dL (7-18); BUN/Creat Ratio 16.2 RATIO (10-20); Calcium,Total 9.7 mg/dL (8.5-10.1); Chloride 104 mmol/L (98-107); Creatinine, Serum 0.98 mg/dL (0.55-1.02); EST Glomerular Filtration Rate 72 mL/min (>60); Est Glom Filt Rate - Afr Amer 88 mL/min (>60); Estimated Creatinine Clearance 74.89 ml/min; Glucose 441 mg/dL (74-106); Lipase 12 U/L (13-75); Potassium 4.1 mmol/L (3.5-5.1); Protein, Total 8.6 g/dL (6.4-8.2); Sodium Level 137 mmol/L (136-145)
[2024-05-13] MEDS: 0.9% Normal Saline (1000mL) 1,000 ML 999 ML IV ×2 (02:20→04:34)
[2024-05-13] MEDS: Insulin Lispro 100 UNIT in 0.9% Normal Saline (100mL Bag) 99 ML 6.8 UNIT CONT INF (02:28)
[2024-05-13 02:44] LABS: Blood Gas Specimen Type VEN; O2 Delivery Device Room Air; SITE Not entered; VBG BASE EXCESS -22 mmol/L (-1.0-3.5); VBG Bicarbonate 9 mmol/L (22-26); VBG PO2 61 mmHg (25-40); VBG SO2 80 % (50-70); VBG TCO2 10 mmol/L (23-33); VBG pH 7.05 (7.32-7.42)
--- NOTE | 2024-05-13 02:54 | PCM.HP.STD ---
[facility] - General General Date of Admission: 05/13/24 Date of Service: 05/13/24 Chief Complaint: Nausea, Vomiting and Hyperglycemia. [facility] Yanick DESIR, is a 24 F with a past medical history of obesity; with BMI of 32.5 this admission, history of DM-1 since age 8 with insulin pump in-place; uncontrolled with hyperglycemia, history of DKA, history of cannabis abuse; with cannabis hyperemesis syndrome, history of asthma, history of hepatitis A, history of myringotomy tubes, depression with anxiety and recent ER evaluation here yesterday around noon for nausea and vomiting presumed to be primarily due to a viral syndrome with fever, lower abdominal pain and modestly elevated blood glucose in the ~200 mg/dL range in spite of taking her insulin as prescribed with patient then volume resuscitated and treated with Reglan followed by discharge home after an unremarkable CT scan of the abdomen and pelvis with a negative urine test who re-presents to [facility] ER complaining of continued nausea and vomiting. Ms. Gonzalez reports her initial symptoms began ~2 weeks prior to admission with intermittent fever along with progressively worsening nausea and bilious emesis. She came to the ER to be evaluated with transient improvement - but when she got home she claims she took the prescribed medications but her symptoms worsened with intractable nausea with frequent dry heaves followed by non-bloody diarrhea so she decided to come back in for further evaluation and treatment. She admits her symptoms are similar to her previous bouts of DKA. She denies associated chest pain, SOB, headache or diaphoresis. In the ER she was noted to have pH of 7.03 and an elevated blood glucose of 441 mg/dL with an anion gap of 20 and moderate serum ketones consistent with DKA along with Leukocytosis of 14.4K present on admission that was suspected to be reactive in nature triggered by recent viral gastroenteritis with intractable nausea and vomiting followed by non-bloody diarrhea and she was then admitted to the ICU for ongoing care for a stay that is expected to extend beyond 2 midnights. [facility] Medical History (Updated 05/13/24 @ 03:[address] David Rowe, ) Insulin dependent type 1 diabetes mellitus Tachycardia Diabetic ketoacidosis Hx of type 1 diabetes mellitus Non-compliance DKA (diabetic ketoacidosis) Type 1 diabetes mellitus with hyperglycemia Hypokalemia Hypophosphatemia Cannabis hyperemesis syndrome concurrent with and due to cannabis abuse DKA, type [address] History of marijuana use Anxiety and depression Insomnia Numbness and tingling Insulin pump titration Presence of insulin pump History of hepatitis A Asthma Diabetes type 1, controlled Home Medications ?Medication ?Instructions ?Recorded ?Last Taken ?Type albuterol sulfate 90 mcg/actuation 2 puff inhalation Q4H PRN SHORTNES 08/25/18 03/02/23 History aerosol inhaler (Ventolin HFA) OF BREATH/WHEEZING Ketone Urine Test (acetone (urine) #50 ea 11/05/21 Unknown Rx test) fluticasone propionate 50 2 spray intranasal DAILY NASAL 11/21/22 02/12/23 History mcg/actuation nasal CONGESTION spray,suspension pen needle, diabetic 32 gauge x #120 ea 11/23/22 Unknown Rx (BD Ultra-Fine Opal Pen Needle) hydroxyzine pamoate 25 mg capsule 25 mg PO QHS ITCHING #30 caps 01/13/23 02/12/23 Rx (Vistaril) insulin pump cartridge,automated #1 ea 08/15/23 Unknown Rx dose,BT with controller subcutaneous (Omnipod 5 G6 Intro Kit (Gen 5) subcutaneous cartridge with controller) blood-glucose sensor (Dexcom G6 #9 ea 11/10/23 Unknown Rx Sensor device) blood-glucose transmitter (Dexcom #1 ea 11/10/23 Unknown Rx G6 Transmitter device) insulin pump cart,automated,BT #45 ea 11/10/23 Unknown Rx (Omnipod 5 G6 Pods (Gen 5) subcutaneous cartridge) insulin lispro 100 unit/mL 100 unit subcut DAILY #90 mL 12/30/23 Unknown Rx subcutaneous solution (Humalog U-100 Insulin) metoclopramide HCl 5 mg tablet 5 mg PO DAILY PRN nausea and 05/12/24 Unknown Rx (Reglan) vomiting 3 days #9 tabs Allergy/AdvReac Type Severity Reaction Status Date / Time bee venom protein (honey Allergy Severe Anaphylaxis Verified 05/12/24 12:11 bee) (bee stings) Sulfa (Sulfonamide Allergy Unknown Verified 05/12/24 12:11 Antibiotics) prednisone AdvReac Vomiting Verified 05/12/24 12:11 Family History Grandmother Diabetes Sister Asthma Brother Asthma Mother Heart disease Surgical History History of placement of ear tubes Social History household members: family Smoking Status: Never smoker second hand exposure: No alcohol intake: never substance use type: other details: Cannabis, last use ~ 1 month prior, ingested. ROS ROS Narrative Review of Systems: Constitutional: Patient admits to fever but she denies chills. Eyes: Patient denies changes in vision or discharge from eyes. ENT: Patient denies runny nose, sore throat or ear pain. Resp: Patient denies SOB or cough. CV: Patient denies chest pain, palpitations or heart racing. GI: Patient admits to nausea and vomiting with bilious emesis and non-bloody diarrhea as per HPI. : Patient denies dysuria or hematuria. MSK: Patient denies arthralgias and myalgias. Skin: Patient denies rash, abscess or jaundice. Psych: Patient denies symptoms of uncontrolled depression or anxiety. Neuro: Patient denies headache, paresthesias or focal neurologic weakness. Allergy: Patient denies lip swelling, tongue swelling or urticaria. Hematology: Patient denies easy bleeding or easy bruisability. Endocrinology: Patient admits to polyuria with hyperglycemia - but she denies polydipsia or polyphagia. 14 point ROS otherwise negative except for positives noted above. Vital Signs Vital Signs Vital Signs: 05/13/24 00:26 05/13/24 02:33 Temperature 97.7 F L Temperature Source Oral Pulse Rate 88 Respiratory Rate 16 Blood Pressure 117/66 145/78 H Blood Pressure Mean 83 100 Pulse Ox 100 Weight Weight: 150 lb 1.6 oz Body Mass Index (BMI) 32.4 Physical Exam Const alert and oriented x3 Constitutional Narrative: Mild distress noted. General Appearance: cooperative HEENT normocephalic, head/scalp atraumatic and hearing grossly normal bilaterally HEENT Narrative: Mucous mebranes dry. Eyes PERRL and EOMs intact bilaterally Neck no lymphadenopathy and supple Resp normal respiratory effort, no retractions, no use of accessory muscles and clear to auscultation bilaterally Cardio regular rate and regular rhythm GI normal to inspection, nondistended, normoactive bowel sounds, soft to palpation and non-distended GI Narrative: Mild generalized TTP. Extremity normal to inspection, full ROM and no clubbing, cyanosis or edema Skin Skin Narrative: Patient has no evidence of rash, abscess or jaundice. Neuro oriented x3, CN's II-XII intact bilaterally, moves all extremities and no focal motor deficits Sensorium / Orientation: awake, alert, oriented to person, oriented to place and oriented to time Speech: speech normal Psych Mood & Affect: anxious Results Medical Records Data Attestation: I reviewed the patient's medical records Lab / Micro Data Attestation: I reviewed the patient's lab results. 05/13/24 01:22 05/13/24 01:22 Labs: Laboratory Results - last 24 hr 05/13/24 01:22: WBC 14.4 H, RBC 5.06, Hgb 14.3, Hct 44.6, MCV 88.1 D, MCH 28.3, MCHC 32.1, RDW Std Deviation 43.1, RDW Coeff of Marilynn 13.4, Plt Count 388, MPV 9.1, Immature Gran % (Auto) 0.600, Neut % (Auto) 89.3 H, Lymph % (Auto) 7.1 L, [place] % (Auto) 2.4, Eos % (Auto) 0.1, Baso % (Auto) 0.5, Absolute Neuts (auto) 12.9 H, Absolute Lymphs (auto) 1.03, Nucleated RBC % 0, Sodium 137, Potassium 4.1, Chloride 104, Carbon Dioxide 13.0 L, Anion Gap 20 H, BUN 16, Creatinine 0.98, Estim Creat Clear Calc 74.89, Est GFR (MDRD) Af Amer 88, Est GFR (MDRD) Non-Af 72, BUN/Creatinine Ratio 16.2, Glucose 441 H, Calcium 9.7, Total Bilirubin 1.30 H, AST 14 L, ALT 22, Alkaline Phosphatase 108, Total Protein 8.6 H, Albumin 4.6, Globulin 4.0, Albumin/Globulin Ratio 1.2, Lipase 12 L, Acetone Level MODERATE H ABG Data ABG results: ABG 05/13/24 02:40 Specimen Type LUIS Sample Site Not entered VBG pH 7.05 L* VBG pO2 61 H VBG HCO3 9 L VBG Total CO2 10 L VBG O2 Sat (Calc) 80 H VBG Base Excess -22 L POC Mix VBG pCO2 Pt Tmp 32.0 L O2 Delivery Device Room Air Crit Call To/Read Back Yes Blood Gas Notified Whom [place] Blood Gas Notified Time 02:41:34 Assessment & Plan Assessment/Plan (1) Diabetic ketoacidosis: QUALIFIERS: Diabetes mellitus complication detail: without coma Diabetes mellitus type: type 1 Qualified Code(s): E10.10 - Type 1 diabetes mellitus with ketoacidosis without coma (2) Insulin dependent type 1 diabetes mellitus: QUALIFIERS: Diabetes mellitus complication detail: without coma Diabetes mellitus complication status: with ketoacidosis Qualified Code(s): E10.10 - Type 1 diabetes mellitus with ketoacidosis without coma (3) Nausea & vomiting: QUALIFIERS: Vomiting type: unspecified Qualified Code(s): R11.2 - Nausea with vomiting, unspecified (4) Diarrhea: QUALIFIERS: Diarrhea type: presumed infectious Qualified Code(s): R19.7 - Diarrhea, unspecified (5) Viral gastroenteritis: (6) Leukocytosis: QUALIFIERS: Leukocytosis type: unspecified Qualified Code(s): D72.829 - Elevated white blood cell count, unspecified (7) Obesity (BMI 30.0-34.9): PLAN: Plan 1. DKA evidenced by: pH of 7.03 and an elevated blood glucose of 441 mg/dL with an anion gap of 20 and moderate serum ketones present on admission - Admit to ICU for treatment under the DKA protocol. Keep strict NPO and vigorously volume resuscitate. We will also give one ampoule of sodium bicarbonate in an effort to improve her pH. Give Protonix 40 mg IV daily plus Zofran IV prn for nausea and vomiting. Avoid Phenergan after recent administration of Reglan. 2. History of DM-1 since age 8 with insulin pump in-place; uncontrolled with hyperglycemia with a known history of DKA complicating #1 - Noted. Turn off insulin pump while on insulin drip. Check HgbA1c to objectively evaluate quality of diabetic control. 3. Viral Gastroenteritis with intractable nausea and vomiting followed by non-bloody diarrhea precipitating #1 - Check stool studies and place on enteric precautions. 4. Obesity; with BMI of 32.5 this admission - Weight loss will be recommended. Check TSH. 5. History of cannabis abuse; with cannabis hyperemesis syndrome - Check UDS to ensure there has not been a relapse into cannabis use. 6. History of asthma - Stable with no evidence of acute flare. Continue inhalers and prn nebulizers as previous. 7. History of hepatitis A - Noted. 8. History of myringotomy tubes - Noted for the sake of completeness. 9. Depression with anxiety - Patient currently not on any psychotropic medications. 10. DVT prophylaxis - Lovenox 40 mg sq daily plus SCD's. Total time: Approximately (but not less than) 75 minutes. Charges/Coding Visit Charges Inpatient E&M: 10777 Init Hosp L3
[2024-05-13 03:31] LABS: Bedside Glucose 320 mg/dL (74-106)
[2024-05-13] MEDS: Pantoprazole Sodium 40 MG in 0.9% Normal Saline (100mL MB+) 100 ML 330 MG IV (04:34)
[2024-05-13] MEDS: Sodium Bicarbonate 8.4% 50 ML Syringe 50 MEQ IV (04:37)
[2024-05-13] MEDS: Ketorolac 15 MG/ML Vial IV (04:46)
[2024-05-13 04:59] LABS: Anion Gap 18 (5-15); BUN 15 mg/dL (7-18); BUN/Creat Ratio 16.1 RATIO (10-20); Chloride 112 mmol/L (98-107); Creatinine, Serum 0.93 mg/dL (0.55-1.02); EST Glomerular Filtration Rate 77 mL/min (>60); Est Glom Filt Rate - Afr Amer 94 mL/min (>60); Estimated Creatinine Clearance 75.97 ml/min; Glucose 290 mg/dL (74-106); Potassium 4.3 mmol/L (3.5-5.1); Sodium Level 140 mmol/L (136-145)
[2024-05-13] MEDS: Dext 5%-0.45% NS 1,000 ML 250 ML IV ×2 (05:31→09:45)
[2024-05-13 05:46] LABS: Bacteria 0 SEEN /hpf (None Seen); Mucous, Urine 0 SEEN /hpf (<or=2+); White Blood Cells 0 SEEN /hpf (0-5)
[2024-05-13 05:54] LABS: Color, Urine Straw (Yellow); Glucose, Dipstick 1000 mg/dl (Normal); Leukocyte Esterase-Dipstick Negative /ul (Negative); Nitrite-Dipstick Negative (Negative); Occult Blood-Urine 25 /ul (Negative); Protein-Dipstick 30 mg/dl (Negative); Specific Gravity, Urine 1.025 (1.002-1.030); Urine Bilirubin Dipstick Negative (Negative); Urine Clarity Clear (Clear); Urine Urobilinogen Normal (Normal)
[2024-05-13 05:56] LABS: Ketone-Dipstick 150 mg/dl (Negative)
[2024-05-13 06:00] LABS: Red Blood Cells-Urine 0-5 SEEN /hpf (0-5); Squamous Epithelial Cells - UA 0-5 SEEN /hpf (5-10)
[2024-05-13 06:40] LABS: Amphetamine Urine NEGATIVE (<1000 ng/mL); Barbiturate Urine VISTA NEGATIVE (< 200 ng/mL); Benzodiazepine Urine VISTA NEGATIVE (< 200 ng/mL); Cocaine Urine VISTA NEGATIVE (< 300 ng/mL); Ecstacy Urine VISTA NEGATIVE (< 500 ng/mL); Methadone Urine VISTA NEGATIVE (< 300 ng/mL); PCP Urine VISTA NEGATIVE (< 25 ng/mL); THC Urine VISTA POSITIVE (< 50 ng/mL); Vista UDS pH Range 6
--- NOTE | 2024-05-13 06:56 | PN.HOSP_ITS ---
Reason for Visit Reason for Visit: Diagnoses Viral intestinal infection, unspecified (05/13/24) Elevated white blood cell count, unspecified (05/13/24) Type 1 diabetes mellitus with ketoacidosis without coma (05/13/24) Obesity, class 1 (05/13/24) Nausea with vomiting, unspecified (05/13/24) Diarrhea, unspecified (05/13/24) Subjective Subjective Still with nausea and vomiting. She says she does not smoke much marijuana, but when pressed, said she smokes every night. Objective Data Objective Data Vital Signs: Vital Signs Temp Pulse Resp BP Pulse Ox O2 Del Method 36.4 C L 109 H 22 H 123/73 H 99 Room Air 05/13/24 04:15 05/13/24 05:00 05/13/24 05:00 05/13/24 05:00 05/13/24 05:00 05/13/24 05:00 Oxygen Delivery Method Room Air Weight: 63 kg Body Mass Index (BMI) 29.9 Intake & Output: Intake and Output for Last 24 Hours 05/11/24 05/12/24 05/13/24 23:59 23:59 23:59 Intake Total 2124.39 / 2124.39 Output Total 600 / 600 Balance 1524.39 / 1524.39 Lab / Micro Data 05/13/24 01:22 05/13/24 12:30 Labs: Laboratory Results - last 24 hr 05/13/24 01:22: WBC 14.4 H, RBC 5.06, Hgb 14.3, Hct 44.6, MCV 88.1 D, MCH 28.3, MCHC 32.1, RDW Std Deviation 43.1, RDW Coeff of Marilynn 13.4, Plt Count 388, MPV 9.1, Immature Gran % (Auto) 0.600, Neut % (Auto) 89.3 H, Lymph % (Auto) 7.1 L, [place] % (Auto) 2.4, Eos % (Auto) 0.1, Baso % (Auto) 0.5, Absolute Neuts (auto) 12.9 H, Absolute Lymphs (auto) 1.03, Nucleated RBC % 0, Sodium 137, Potassium 4.1, Chloride 104, Carbon Dioxide 13.0 L, Anion Gap 20 H, BUN 16, Creatinine 0.98, Estim Creat Clear Calc 74.89, Est GFR (MDRD) Af Amer 88, Est GFR (MDRD) Non-Af 72, BUN/Creatinine Ratio 16.2, Glucose 441 H, Calcium 9.7, Magnesium 2.0, Total Bilirubin 1.30 H, AST 14 L, ALT 22, Alkaline Phosphatase 108, Total Protein 8.6 H, Albumin 4.6, Globulin 4.0, Albumin/Globulin Ratio 1.2, Lipase 12 L, Acetone Level MODERATE H 05/13/24 03:09: POC Glucose 320 H 05/13/24 04:24: Sodium 140, Potassium 4.3, Chloride 112 H, Carbon Dioxide 10.0 L , Anion Gap 18 H, BUN 15, Creatinine 0.93, Estim Creat Clear Calc 75.97, Est GFR (MDRD) Af Amer 94, Est GFR (MDRD) Non-Af 77, BUN/Creatinine Ratio 16.1, Glucose 290 H, Calcium 9.0, TSH 1.320 05/13/24 05:37: Urine Color Straw, Urine Clarity Clear, Urine pH 5.0, Ur Specific Emmet 1.025, Urine Protein 30 H, Urine Glucose (UA) 1000 H, Urine Ketones 150 A*, Urine Occult Blood 25 H, Urine Nitrite Negative, Urine Bilirubin Negative, Urine Urobilinogen Normal, Ur Leukocyte Esterase Negative, Urine RBC 0-5 SEEN, Urine WBC 0 SEEN, Ur Squamous Epith Cells 0-5 SEEN, Urine Bacteria 0 SEEN, Urine Mucus 0 SEEN, Urine Opiates Screen NEGATIVE, Urine Methadone Screen NEGATIVE, Ur Barbiturates Screen NEGATIVE, Ur Phencyclidine Scrn NEGATIVE, Ur Amphetamines Screen NEGATIVE, MDMA (Ecstasy) Screen NEGATIVE, U Benzodiazepines Scrn NEGATIVE, Urine Cocaine Screen NEGATIVE, U Cannabinoids Screen POSITIVE H, Ur Drug Screen Comment ABG Data ABG results: ABG 05/13/24 02:40 Specimen Type LUIS Sample Site Not entered VBG pH 7.05 L* VBG pO2 61 H VBG HCO3 9 L VBG Total CO2 10 L VBG O2 Sat (Calc) 80 H VBG Base Excess -22 L POC Mix VBG pCO2 Pt Tmp 32.0 L O2 Delivery Device Room Air Crit Call To/Read Back Yes Blood Gas Notified Whom [place] Blood Gas Notified Time 02:41:34 Physical Exam Const alert Constitutional Narrative: flat affect. minimal interest in interacting with me while in the room. vomited while in the room. HEENT head/scalp atraumatic and moist oral mucous membranes Assessment & Plan Assessment/Plan (1) Diabetic ketoacidosis: QUALIFIERS: Diabetes mellitus complication detail: without coma D iabetes mellitus type: type 1 Qualified Code(s): E10.10 - Type 1 diabetes mellitus with ketoacidosis without coma (2) Insulin dependent type 1 diabetes mellitus: QUALIFIERS: Diabetes mellitus complication detail: without coma D iabetes mellitus complication status: with ketoacidosis Qualified Code(s): E 10.10 - Type 1 diabetes mellitus with ketoacidosis without coma PLAN: Plan DKA * in type I diabetic. Admission glucose of 441, pH (on VBG) was 7.05) * on insulin gtt, IVF (NS, D5NS). Gap closed x2 * Patient states that she is actually not on an insulin pump but is using glargine. Will reinstitute insulin glargine 30 units daily and humalog 15 units w meals. Suspected cannabinoid hyperemesis syndrome. * Advised complete cessation. Patient said that she will but she seem rather unconvincing. * Refractory to Zofran. Patient ordered a dose of haloperidol and ordered heating packs to see if that would help. Chronic conditions: * obesity class I: complicates care and recovery * asthma: stable VTE prophylaxis: VTE prophylaxis. Charges/Coding Procedures Hospitalists Procedures: Other Procedure - See Report (Nonbillable rounding as patient was admitted after midnight.)
[2024-05-13 08:50] LABS: Bedside Glucose 190 mg/dL (74-106)
[2024-05-13 08:50] LABS: Bedside Glucose 275 mg/dL (74-106)
[2024-05-13 08:50] LABS: Bedside Glucose 231 mg/dL (74-106)
[2024-05-13 08:50] LABS: Bedside Glucose 217 mg/dL (74-106)
[2024-05-13 08:51] LABS: Base Excess -14 mmol/L (-2 to +2); Bicarbonate 12.3 mmol/L (22-26); Blood Gas Specimen Type ART; Mode Not entered; O2 Delivery Device Not entered; PO2 102 mmHG (75-100); SITE L Brach; SO2 97 % (95-99); Total Carbon Dioxide 13 mmol/L; pCO2 25.4 mmHg (35-45); pH 7.29 (7.35-7.45)
[2024-05-13 08:52] LABS: Anion Gap 11 (5-15); BUN 10 mg/dL (7-18); BUN/Creat Ratio 10.9 RATIO (10-20); Chloride 115 mmol/L (98-107); Creatinine, Serum 0.92 mg/dL (0.55-1.02); EST Glomerular Filtration Rate 78 mL/min (>60); Est Glom Filt Rate - Afr Amer 95 mL/min (>60); Glucose 233 mg/dL (74-106); Potassium 3.6 mmol/L (3.5-5.1); Sodium Level 141 mmol/L (136-145)
[2024-05-13] MEDS: Haloperidol Lactate 5 MG/ML Vial 3 MG IV (08:59)
[2024-05-13] MEDS: Fluticasone 0.05% 1 SPRAY NASAL.SRY 2 SPRAY NASAL (09:01)
[2024-05-13] MEDS: Enoxaparin 40 MG/0.4 ML Syringe SC (09:02)
[2024-05-13] MEDS: Potassium Chloride 10mEq/100mL 10 MEQ/100 ML IV.SOLN. 100 MEQ IV BOLUS ×3 (09:48→12:25)
[2024-05-13 11:12] LABS: Bedside Glucose 185 mg/dL (74-106)
[2024-05-13 11:23] LABS: Bedside Glucose 179 mg/dL (74-106)
[2024-05-13 12:55] LABS: Bedside Glucose 211 mg/dL (74-106)
[2024-05-13 13:31] LABS: Anion Gap 7 (5-15); BUN 9 mg/dL (7-18); BUN/Creat Ratio 10.9 RATIO (10-20); Chloride 115 mmol/L (98-107); Creatinine, Serum 0.82 mg/dL (0.55-1.02); EST Glomerular Filtration Rate 89 mL/min (>60); Est Glom Filt Rate - Afr Amer 108 mL/min (>60); Estimated Creatinine Clearance 86.17 ml/min; Glucose 184 mg/dL (74-106); Potassium 3.8 mmol/L (3.5-5.1); Sodium Level 139 mmol/L (136-145)
[2024-05-13 13:37] LABS: Bedside Glucose 171 mg/dL (74-106)
--- NOTE | 2024-05-13 14:10 | CASEMGMT ---
Addendum entered by Bren Chery 05/13/24 14:29: SW notified SARA NICOLE that pt does have insurance, it is [facility] and her boyfriend will bring in the card to copy. Original Note: SARA NICOLE Assessment: Face to Face with pt for initial transition planning/care coordination assessment. RN COREY introduced self and role at [facility], pt voices understanding and consents to assessment. Pt is A&O x4 and answers all questions appropriately at this time. Pt lying in bed in no distress. Care providers, pharmacy, and demographics verified/updated. Admitting Dx: DKA, intractable nausea and vomiting Strata Score: 2 PCP:Naveen Specialists:maria dolores Dorado Preferred Pharmacy: [facility] Insurance: Self Pay- Pt states she makes too much money to qualify for [facility] Prescription Benefit: yes, pt is unsure how she has rx coverage but states yesterday she got meds filled and there was no cost. SARA NICOLE to check on this and see if pt does have insurance in this case. LNOK: Alla King, mother Living Arrangements: Pt lives currently with mother and her mother's boyfriend. Pt mother's boyfriend is another man that the pt used to date. She states she dumped her previous boyfriend and is now dating another one of her ex boyfriends. Pt states d/t this her mother is kicking me out in 15 days. Pt plans to go live with her boyfriend's mother in [place]. Pt is I in ADLs. Transportation: Pt drives self and denies concerns with transportation. DME:BGM with sufficient strips and lancets as well as insulin pens with sufficient supply of needles and insulin HHC/SNF: Denies hx of Pt states no concerns with going home at time of dc. 6 cl=24. Pt states she has long and short acting insulin. She states she just came home after work and forgot to take her insulin and that is why she is in DKA. Pt denies any safety concerns at home at this time. Pt states no further concerns/needs. CM to follow. Advised pt to ask CM if any further question/concerns/needs arise, voices understanding. Pt Goal: Home Plan: Home TC to [facility] [place] pt is established with maria dolores Mario. She had an appt on 02/03 and another on 06/09. Placed upcoming appt on dc instructions. Updated SW regarding pt situation. (insurance and housing) Regine RUIZ CM
[2024-05-13] MEDS: Potassium Chloride 10mEq/100mL 10 MEQ/100 ML IV.SOLN. 50 MEQ IV BOLUS (14:23)
--- NOTE | 2024-05-13 14:38 | CASEMGMT ---
Social Work This SW met with patient to offer support. Patient stated she wanted assistance figuring out who her insurance is through. This SW suggested to call her supervisor coffee at work to see who their company uses. Patient then remembered that she had a copy of her card on her dresser, patient contacted boyfriend who sent a picture of her insurance card through [facility]. Patient stated that boyfriend would bring the card in so [facility] could scan a copy. Patient also discussed her mother kicking her out of their house. This SW offered support and asked if she had a place to go, patient stated that she was going to move into her boyfriends mothers house. Patient stated this was a safe environment for her. Patient stated no other assistance was needed at this time. Anai Watts, DIRECTOR OF AGRONOMY, [employer]
[2024-05-13 14:45] LABS: Bedside Glucose 134 mg/dL (74-106)
[2024-05-13] MEDS: Insulin Glargine-YFGN 100 UNIT/ML Pen 30 UNIT SC (15:23)
[2024-05-13] MEDS: 0.9% Saline Lock 10 ML Syringe IV (15:32)
[2024-05-13 16:00] LABS: Bedside Glucose 111 mg/dL (74-106)
[2024-05-13] MEDS: Insulin Lispro 100 UNIT/ML INSULN.PEN 15 UNIT SC (17:49)
[2024-05-13] MEDS: Insulin Lispro 100 UNIT/ML INSULN.PEN SC (17:50)
[2024-05-13 18:13] LABS: Bedside Glucose 154 mg/dL (74-106)
[2024-05-13 21:29] LABS: Bedside Glucose 99 mg/dL (74-106)
[2024-05-14] VITALS (12 sets, daily range): BP systolic 96–131; BP diastolic 54–84; PULSE 75–99; RESP 17–26; TEMP 36.4–36.8; O2SAT 96–99
[2024-05-14 04:00] LABS: Anion Gap 6 (5-15); BUN 8 mg/dL (7-18); BUN/Creat Ratio 10.2 RATIO (10-20); Calcium,Total 8.3 mg/dL (8.5-10.1); Chloride 112 mmol/L (98-107); Creatinine, Serum 0.79 mg/dL (0.55-1.02); EST Glomerular Filtration Rate 94 mL/min (>60); Est Glom Filt Rate - Afr Amer 114 mL/min (>60); Estimated Creatinine Clearance 89.44 ml/min; Glucose 221 mg/dL (74-106); Sodium Level 139 mmol/L (136-145)
[2024-05-14] MEDS: Potassium Chloride Oral Tablet 20 MEQ 60 MEQ PO (06:18)
[2024-05-14] MEDS: Insulin Lispro 100 UNIT/ML INSULN.PEN SC ×2 (06:22→12:42)
[2024-05-14] MEDS: Insulin Lispro 100 UNIT/ML INSULN.PEN 15 UNIT SC ×2 (06:22→12:42)
[2024-05-14 06:44] LABS: Bedside Glucose 268 mg/dL (74-106)
[2024-05-14] MEDS: Potassium Chloride Oral Tablet 20 MEQ 40 MEQ PO (08:44)
--- NOTE | 2024-05-14 09:42 | DS.PCM_ITS ---
Providers Date of Admission: 05/13/24 Primary Care Physician: Minnie Hodge Reason For Visit: DKA, INTRACTABLE NAUSEA & VOMITING & NON BLOODY Diagnosis Discharge Diagnosis (1) Diabetic ketoacidosis: Status: Acute Code(s): E11.10 - Type 2 diabetes mellitus with ketoacidosis without coma Qualifiers: Diabetes mellitus type: type 1 Diabetes mellitus complication detail: w ithout coma Qualified Code(s): E10.10 - Type 1 diabetes mellitus with ketoacidosis without coma (2) Insulin dependent type 1 diabetes mellitus: Status: Acute Code(s): E10.9 - Type 1 diabetes mellitus without complications Qualifiers: Diabetes mellitus complication status: with ketoacidosis Diabetes mellitus complication detail: without coma Qualified Code(s): E10.10 - Type 1 diabetes mellitus with ketoacidosis without coma Plan DKA * in type I diabetic. Admission glucose of 441, pH (on VBG) was 7.05) * on insulin gtt, IVF (NS, D5NS). Gap closed x2 * Patient states that she is actually not on an insulin pump but is using glargine. Will reinstitute insulin glargine 30 units daily and humalog 15 units w meals. Suspected cannabinoid hyperemesis syndrome. * Advised complete cessation. Patient said that she will but she seem rather unconvincing. * Refractory to Zofran. Patient ordered a dose of haloperidol and ordered heating packs to see if that would help. Chronic conditions: * obesity class I: complicates care and recovery * asthma: stable VTE prophylaxis: VTE prophylaxis. Medications at Discharge Home Medications albuterol sulfate 90 mcg/actuation aerosol inhaler (Ventolin HFA) 2 puff inhalation Q4H PRN SHORTNES OF BREATH/WHEEZING 08/25/18 Ketone Urine Test (acetone (urine) test) #50 ea 11/05/21 fluticasone propionate 50 mcg/actuation nasal spray,suspension 2 spray intranasal DAILY NASAL CONGESTION 11/21/22 pen needle, diabetic 32 gauge x 5/32 (BD Ultra-Fine Opal Pen Needle) #120 ea 11/23/22 hydroxyzine pamoate 25 mg capsule (Vistaril) 25 mg PO QHS ITCHING #30 caps 01/13/23 blood-glucose sensor (Dexcom G6 Sensor device) #9 ea 11/10/23 blood-glucose transmitter (Dexcom G6 Transmitter device) #1 ea 11/10/23 metoclopramide HCl 5 mg tablet (Reglan) 5 mg PO DAILY PRN nausea and vomiting 3 days #9 tabs 05/12/24 insulin glargine-yfgn 100 unit/mL (3 mL) subcutaneous pen 30 unit (0.3 mL) subcut DAILY #0 mL 05/14/24 insulin lispro 100 unit/mL subcutaneous pen (Humalog KwikPen (U-100) Insulin) 15 unit (0.15 mL) subcut TIDAC #0 mL 05/14/24 Hospital Course Operations None Procedures None Summary of Care Provided Hospital Course: Patient presents with nausea and vomiting and was found to be in DKA. Patient was on insulin drip per protocol and got out of DKA on the and was resumed on her regular insulin regimen which includes insulin glargine and prandial insulin. Blood sugars have remained stable. Patient had drug screen was positive for cannabinoids and patient has openly admitted to using marijuana. I told the patient is unclear if she has cannabinoid hyperemesis syndrome or if she has underlying gastroparesis but she has been strongly advised to avoid cannabinoids whether she smokes it or takes edibles etc. She expressed understanding and stated that she will comply. She states that she is good on insulin at home (she takes glargine as well as prandial insulin, not the insulin pump). Physical Exam Narrative Feeling better. No further nausea or vomiting. Const alert and no apparent distress HEENT normocephalic and head/scalp atraumatic Weight / BMI Weight Weight: 63 kg Body Mass Index (BMI) 29.9 ABG / Lab / Microbiology Data 05/13/24 01:22 05/14/24 03:30 Laboratory: Laboratory Results - last 24 hr 05/13/24 04:24: Hemoglobin A1c 11.0 H 05/13/24 08:17: POC Glucose 185 H 05/13/24 09:33: POC Glucose 179 H 05/13/24 11:00: POC Glucose 211 H 05/13/24 12:20: POC Glucose 171 H 05/13/24 12:30: Sodium 139, Potassium 3.8, Chloride 115 H, Carbon Dioxide 17.0 L , Anion Gap 7, BUN 9, Creatinine 0.82, Estim Creat Clear Calc 86.17, Est GFR (MDRD) Af Amer 108, Est GFR (MDRD) Non-Af 89, BUN/Creatinine Ratio 10.9, Glucose 184 H, Calcium 8.0 L, Acetone Level SMALL H 05/13/24 13:15: POC Glucose 134 H 05/13/24 14:20: POC Glucose 111 H 05/13/24 17:46: POC Glucose 154 H 05/13/24 21:05: POC Glucose 99 05/14/24 03:30: Sodium 139, Potassium 3.0 L, Chloride 112 H, Carbon Dioxide 21.0, Anion Gap 6, BUN 8, Creatinine 0.79, Estim Creat Clear Calc 89.44, Est GFR (MDRD) Af Amer 114, Est GFR (MDRD) Non-Af 94, BUN/Creatinine Ratio 10.2, Glucose 221 H, Calcium 8.3 L 05/14/24 06:21: POC Glucose 268 H D/C Instructions Discharge Diet: 2000 Calorie Control Diet Meaningful Use Info Meaningful Use Meaningful Use Diagnoses (Choose all that apply): None applicable Ischemic Stroke Statin Dosing Therapy Reference: STATIN DOSE THERAPY REFERENCE: * Patients > 75 years receive moderate or high dose statin therapy. * Patients 75 years or YOUNGER should receive HIGH intensity statin dose unless contraindicated. You will be required to document reason for non-treatment if statin daily dose does not meet guidelines. HIGH DOSE STATIN THERAPY DAILY Atorvastatin > than or = to 40 mg Rosuvastatin > than or = to 20 mg Amlodipine + Atorvastatin > than or = to 2.5/40 mg Ezetimibe + Simvastatin 10/80 mg Simvastatin 80mg Discharge Plan Admission Admit Date/Time: 05/13/24 03:29 Primary Reason for Your Visit: Diabetic ketoacidosis Attending Provider: Damien Villagran Primary Care Provider: Minnie Hodge Consulting Providers: David Rowe Instructions Additional Instructions / Restrictions: You presented with nausea and vomiting. It is unclear if this is cannabinoid hyperemesis syndrome (intractable vomiting related with marijuana use) versus diabetic gastroparesis. As we discussed, recommend discontinuing all marijuana products moving forward so this if you have this problem in the future this would likely be due to something else. Discharge Orders/Prescriptions Prescriptions: New insulin glargine-yfgn 100 unit/mL (3 mL) Insulin Pen 30 unit subcut DAILY Qty: 0 0RF insulin lispro [Humalog KwikPen Insulin] 100 unit/mL Insulin Pen 15 unit subcut TIDAC Qty: 0 0RF Continued hydroxyzine pamoate [Vistaril] 25 mg capsule 25 mg PO QHS Qty: 30 6RF (DME) Dexcom G6 Sensor Device See Rx Instructions .Route Qty: 9 0RF Rx Instructions: 1 sensor q 10 days (DME) Dexcom G6 Transmitter Device See Rx Instructions .Route Qty: 1 0RF Rx Instructions: As directed albuterol sulfate [Ventolin HFA] 18 GM HFA aerosol inhaler 2 puff inhalation Q4H PRN (Reason: SHORTNES OF BREATH/WHEEZING) fluticasone propionate 50 mcg/actuation spray,suspension 2 spray INTRANASAL DAILY (DME) pen needle, diabetic [BD Ultra-Fine Opal Pen Needle] 32 gauge x 5/32 needle See Rx Instructions .ROUTE .MEDSUPPLY Qty: 120 5RF Rx Instructions: 4 times daily metoclopramide HCl [Reglan] 5 mg tablet 5 mg PO DAILY PRN (Reason: nausea and vomiting) 3 Days Qty: 9 0RF (DME) Ketone Urine Test Strip See Rx Instructions .ROUTE .MEDSUPPLY Qty: 50 1RF Rx Instructions: once/day Discontinued (DME) Omnipod 5 G6 Pods (Gen 5) Cartridge See Rx Instructions .Route Qty: 45 0RF Rx Instructions: change every 48-72 hours (DME) Omnipod 5 G6 Intro Kit (Gen 5) Cartridge See Rx Instructions .Route Qty: 1 0RF Rx Instructions: As directed insulin lispro [Humalog U-100 Insulin] 100 unit/mL solution 100 unit subcut DAILY Qty: 90 1RF Referrals / Follow Up: Minnie Hodge [Primary Care Provider] - Within 2 Weeks Disposition Disposition (needs filled in before D/C Order can be placed): Home, Self Care Charges/Coding Visit Charges Inpatient E&M: 73811 Disch Hosp
[2024-05-14] MEDS: Insulin Glargine-YFGN 100 UNIT/ML Pen 30 UNIT SC (09:57)
[2024-05-14] MEDS: Fluticasone 0.05% 1 SPRAY NASAL.SRY 2 SPRAY NASAL (09:58)
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
[2024-05-14 13:02] LABS: Bedside Glucose 233 mg/dL (74-106)
== END 2024-05-14 13:12 | disposition home or self-care (01) | DRG 639 ==
LOC: ED 02:54 → ICU 03:38
PROVIDERS: Admitting Provider Internal Medicine; Emergency Provider Emergency Medicine
DX: E10.10 Type 1 diabetes mellitus with ketoacidosis without coma (principal); Z79.4 Long term (current) use of insulin; F12.10 Cannabis abuse, uncomplicated; A08.4 Viral intestinal infection, unspecified; J45.909 Unspecified asthma, uncomplicated; Z68.32 Body mass index [BMI] 32.0-32.9, adult; R11.2 Nausea with vomiting, unspecified; E66.811 Obesity, class 1; Z79.51 Long term (current) use of inhaled steroids; Z96.41 Presence of insulin pump (external) (internal)
CPT/HCPCS: 36415; 36600; 80048; 80053; 80307; 81001; 82009; 82803; 82962; 83036; 83690; 83735; 84443; 85025; 96365; 96366; 96368; 96372; 96375; 96376; 99221; 99284; A4216; G0378; J2405

== ENCOUNTER 2024-10-04 13:39 | Emergency (ER) | payer BC, MEDICAID, SELFPAY ==
[2024-10-04 13:40] VITALS: BP 139/82; PULSE 88; RESP 15; TEMP 36.4; O2SAT 99; BMI 31.3
--- NOTE | 2024-10-04 13:50 | RAD_ITS ---
PROCEDURE: FINGER(S) MIN 2 VIEWS 10/04/2024 REASON FOR EXAM: PAIN TECHNIQUE: 3 view(s) of the right thumb COMPARISON: None RAD/Finger(s) Min 2 Views IMPRESSION: Mild degenerative changes are seen both of the right 1st interphalangeal joint and the 1st carpal-metacarpal joint. No significant degree of joint narrowing is seen. No fracture or dislocation is evident. Reading Location: [id number]
--- NOTE | 2024-10-04 15:01 | EDS_ITS ---
HPI History of Present Illness Chief Complaint: Upper Extremity Injury Informant: patient Narrative Narrative: Patient is a right-handed female presenting with right thumb pain. She has been going on for 2 weeks. She has associated swelling. Denies any fever or chills. Worse with range of motion. Does a lot of repetitive movements at work. Denies any initial trauma. Because it was still swelling and still having pain her significant other recommend she come in to have it evaluated. No other complaints or concerns reported at this time. No other numbness or tingling reported Has been taking Aleve twice a day for symptoms. [facility] Medical History Obesity (BMI 30.0-34.9) Insulin dependent type 1 diabetes mellitus Tachycardia Diabetic ketoacidosis Hx of type 1 diabetes mellitus Non-compliance DKA (diabetic ketoacidosis) Type 1 diabetes mellitus with hyperglycemia Hypokalemia Hypophosphatemia Cannabis hyperemesis syndrome concurrent with and due to cannabis abuse DKA, type [address] History of marijuana use Anxiety and depression Insomnia Numbness and tingling Insulin pump titration Presence of insulin pump History of hepatitis A Asthma Diabetes type 1, controlled Home Medications ?Medication ?Instructions ?Recorded ?Last Taken ?Type albuterol sulfate 90 mcg/actuation 2 puff inhalation Q 4H PRN SHORTNES 08/25/18 03/02/23 History aerosol inhaler (Ventolin HFA) OF BREATH/WHEEZING Ketone Urine Test (acetone (urine) #50 ea 11/05/21 Unk nown Rx test) fluticasone propionate 50 2 spray intranasal DAILY YARA AL 11/21/22 02/12/23 History mcg/actuation nasal CONGESTION spray,suspension pen needle, diabetic 32 gauge x #120 ea 11/23/22 Unkno wn Rx (BD Ultra-Fine Opal Pen Needle) hydroxyzine pamoate 25 mg capsule 25 mg PO QHS ITCHING #30 caps 01/13/23 02/12/23 Rx (Vistaril) blood-glucose sensor (Dexcom G6 #9 ea 11/10/23 Unknown Rx Sensor device) blood-glucose transmitter (Dexcom #1 ea 11/10/23 Unkno wn Rx G6 Transmitter device) metoclopramide HCl 5 mg tablet 5 mg PO DAILY PRN nause a and 05/12/24 Unknown Rx (Reglan) vomiting 3 days #9 tabs insulin glargine-yfgn 100 unit/mL 30 unit (0.3 mL) sub cut DAILY #0 mL 05/14/24 Unknown Rx (3 mL) subcutaneous pen insulin lispro 100 unit/mL 15 unit (0.15 mL) subcut TI DAC #0 05/14/24 Unknown Rx subcutaneous pen (Humalog KwikPen mL (U-100) Insulin) Allergy/AdvReac Type Severity Reaction Status Date / Time bee venom protein (honey Allergy Severe Anaphylaxis Verified 09/13/24 09:16 bee) (bee stings) Sulfa (Sulfonamide Allergy Unknown Verified 09/13/24 09:16 Antibiotics) prednisone AdvReac Vomiting Verified 09/13/24 09:16 Family History Grandmother Diabetes Sister Asthma Brother Asthma Mother Heart disease Surgical History History of placement of ear tubes Social History adopted: No household members: spouse housing: other details: mobile home number of children: 0 current occupational status: employed current occupation: [employer] pets and animals: Yes pets and animals: dog(s) and other details: python history of recent travel: Yes ([place]) out of state: Yes out of country: No sexually active: Yes Smoking Status: Never smoker second hand exposure: Yes alcohol intake: never substance use type: marijuana and other details: Cannabis, last use ~ 1 month prior, ingested. well-balanced diet: about half the time caffeine: No eating out: 1-3 times/week during the past year weight has: other details: fluxuates 20 # what type of physical activity do you participate in: walking and weight training jose/synagogue: None seatbelt use: always do you feel safe at home: Yes additional social history: - Markie RIDLEY ED Constitutional Constitutional ED: Denies chills or fever(s) Musculoskeletal Musculoskeletal: Reports other Details: right thumb pain Integumentary Denies Abrasions or rash Neurologic Neurologic: Denies paresthesias or weakness EXAM Physical Exam Const Vital Signs: 10/04/24 13:40 Temperature 97.5 F L Temperature Source Temporal Pulse Rate 88 Respiratory Rate 15 Blood Pressure 139/82 H Blood Pressure Mean 101 Pulse Ox 99 Oxygen Delivery Method Room Air Positive well nourished and well developed General Appearance ED: well developed and NAD Chest Wall inspection of chest normal Resp normal respiratory effort Cardio Cardio Narrative: 2+ radial pulses, brisk capillary refill Extremity full ROM Extremity Narrative: Subtle swelling noted of the right thenar eminence and proximal thumb. No associated erythema. There is some very subtle ecchymosis noted at the base of the first metacarpal. Normal range of motion. Increased pain with flexion of the thumb most pronounced over the first MCP. Increased pain with palpation of the first MCP. No associated warmth. No tenderness over the anatomical snuffbox or tenderness with axial loading of the thumb. Normal range of motion of the wrist but some increased pain with range of motion of the wrist as well. Compartments are soft. No associated lymphangitic streaking Neuro oriented x3, moves all extremities, no focal motor deficits and no sensory deficits noted Psych mental status grossly normal Skin Lesions: no lesions Rashes: no rashes MDM MDM MDM Narrative Medical decision making narrative: Patient valuated for pain of her right thumb. Protocol x-ray obtained which shows mild degenerative changes of the first interphalangeal joint and the first carpal metacarpal joint. This is reviewed by myself as well as radiology. Suspect patient has overuse injury. Low suspicion for gouty arthropathy or infectious arthritis. I do not think she requires further workup. Instructed to continue NSAID therapy, ice and given a thumb spica splint. Given a note for work so she may continue to use her splint at work. Given a work note for today. Given return precautions. Encouraged follow-up outpatient with orthopedics, given referral. Discharged home in stable condition. Radiography Diagnostic Testing: Clinical Impression(s) from Imaging Studies Finger X-Ray 10/04/24 13:50 IMPRESSION: Mild degenerative changes are seen both of the right 1st interphalangeal joint and the 1st carpal-metacarpal joint. No significant degree of joint narrowing is seen. No fracture or dislocation is evident. Reading Location: [address] Discharge Plan Triage Chief Complaint: Upper Extremity Injury ED Provider: Danitza [place] Dx/Rx/DC Orders Clinical Impression: Overuse injury, Pain of right thumb Instructions: Tendonitis and Tenosynovitis Prescriptions: No Action hydroxyzine pamoate [Vistaril] 25 mg capsule 25 mg PO QHS Qty: 30 6RF (DME) Dexcom G6 Sensor Device See Rx Instructions .Route Qty: 9 0RF Rx Instructions: 1 sensor q 10 days (DME) Dexcom G6 Transmitter Device See Rx Instructions .Route Qty: 1 0RF Rx Instructions: As directed albuterol sulfate [Ventolin HFA] 18 GM HFA aerosol inhaler 2 puff inhalation Q4H PRN (Reason: SHORTNES OF BREATH/WHEEZING) fluticasone propionate 50 mcg/actuation spray,suspension 2 spray INTRANASAL DAILY (DME) pen needle, diabetic [BD Ultra-Fine Opal Pen Needle] 32 gauge x 5/32 needle See Rx Instructions .ROUTE .MEDSUPPLY Qty: 120 5RF Rx Instructions: 4 times daily insulin glargine-yfgn 100 unit/mL (3 mL) Insulin Pen 30 unit subcut DAILY Qty: 0 0RF insulin lispro [Humalog KwikPen Insulin] 100 unit/mL Insulin Pen 15 unit subcut TIDAC Qty: 0 0RF metoclopramide HCl [Reglan] 5 mg tablet 5 mg PO DAILY PRN (Reason: nausea and vomiting) 3 Days Qty: 9 0RF (DME) Ketone Urine Test Strip See Rx Instructions .ROUTE .MEDSUPPLY Qty: 50 1RF Rx Instructions: once/day Stand Alone Forms: ED Work / School Excuse Primary Care Provider: Minnie Hodge Referrals: Minnie Hodge [Primary Care Provider] - Antonio Lakhani DO [Med Staff - Active Staff] - Activity Restrictions/Additional Instructions: Continue to take NSAIDs (Aleve) as we discussed. Ice to the area. Wear thumb spica splint especially when at work to help rest the joint. Please follow-up with orthopedics. Print Language: [place] Disposition Disposition: Home, Self Care
== END 2024-10-04 15:25 | disposition home or self-care (01) ==
PROVIDERS: Emergency Provider Emergency Medicine; Visit Provider Emergency Medicine
DX: S69.91XA Unspecified injury of right wrist, hand and finger(s), initial encounter (principal); E10.9 Type 1 diabetes mellitus without complications; X58.XXXA Exposure to other specified factors, initial encounter
CPT/HCPCS: 73140; 99283

== ENCOUNTER 2024-11-26 07:47 | Emergency (ER) | payer MEDICAID, BC, SELFPAY ==
[2024-11-26 07:48] VITALS: BP 136/78; PULSE 92; RESP 19; TEMP 36.2; O2SAT 99; BMI 29.1
[2024-11-26 07:50] VITALS: BP 134/80; PULSE 81; RESP 17; TEMP 36.6; O2SAT 100
--- NOTE | 2024-11-26 07:55 | ED.VIS.GI ---
HPI HPI - GI History of Present Illness Chief Complaint: Nausea/Vomiting Informant: patient Abdominal Pain/Flank Pain Onset: Today Context: Sudden Onset Timing: Continuous Quality: Burning Location: Diffuse Worsened by: Nothing Relieved by: - (Drinking water) Nausea/Vomiting/Emesis GI Symptom: Positive for Nausea and Vomiting Quality: Positive for Nonbilious; Negative for Blood streaks, Coffee ground or Hematemesis Diarrhea/Melena/Hematochezia GI Symptom: Positive for Diarrhea; Negative for Melena or Hematochezia Associated Symptoms Associated Symptoms: Negative for Dysuria, Frequency or Hematuria Narrative Narrative: Patient presents with abdominal pain, nausea, vomiting, diarrhea that began earlier this morning. Patient states she is unable to keep anything down. Patient states she has diffuse pain across her entire abdomen. Patient describes it as burning. Patient states it gets better with drinking water. Patient states nothing makes it worse. Patient denies any hematemesis or coffee-ground emesis. Patient denies any melena or hematochezia. Patient denies any dysuria, frequency, or hematuria. Patient states her blood sugars at home have been reading high in the 500s. [facility] Medical History Obesity (BMI 30.0-34.9) Insulin dependent type 1 diabetes mellitus Tachycardia Diabetic ketoacidosis Hx of type 1 diabetes mellitus Non-compliance DKA (diabetic ketoacidosis) Type 1 diabetes mellitus with hyperglycemia Hypokalemia Hypophosphatemia Cannabis hyperemesis syndrome concurrent with and due to cannabis abuse DKA, type [address] History of marijuana use Anxiety and depression Insomnia Numbness and tingling Insulin pump titration Presence of insulin pump History of hepatitis A Asthma Diabetes type 1, controlled Home Medications ?Medication ?Instructions ?Recorded ?Last Taken ?Type albuterol sulfate 90 mcg/actuation 2 puff inhalation Q4H PRN SHORTNES 08/25/18 03/02/23 History aerosol inhaler (Ventolin HFA) OF BREATH/WHEEZING Ketone Urine Test (acetone (urine) #50 ea 11/05/21 Unknown Rx test) fluticasone propionate 50 2 spray intranasal DAILY NASAL 11/21/22 02/12/23 History mcg/actuation nasal CONGESTION spray,suspension pen needle, diabetic 32 gauge x #120 ea 11/23/22 Unknown Rx (BD Ultra-Fine Opal Pen Needle) hydroxyzine pamoate 25 mg capsule 25 mg PO QHS ITCHING #30 caps 01/13/23 02/12/23 Rx (Vistaril) blood-glucose sensor (Dexcom G6 #9 ea 11/10/23 Unknown Rx Sensor device) blood-glucose transmitter (Dexcom #1 ea 11/10/23 Unknown Rx G6 Transmitter device) metoclopramide HCl 5 mg tablet 5 mg PO DAILY PRN nausea and 05/12/24 Unknown Rx (Reglan) vomiting 3 days #9 tabs insulin glargine-yfgn 100 unit/mL 30 unit (0.3 mL) subcut DAILY #0 mL 05/14/24 Unknown Rx (3 mL) subcutaneous pen insulin lispro 100 unit/mL 15 unit (0.15 mL) subcut TIDAC #0 05/14/24 Unknown Rx subcutaneous pen (Humalog KwikPen mL (U-100) Insulin) Allergy/AdvReac Type Severity Reaction Status Date / Time bee venom protein (honey Allergy Severe Anaphylaxis Verified 11/26/24 07:48 bee) (bee stings) Sulfa (Sulfonamide Allergy Unknown Verified 11/26/24 07:48 Antibiotics) prednisone AdvReac Vomiting Verified 11/26/24 07:48 Family History Grandmother Diabetes Sister Asthma Brother Asthma Mother Heart disease Surgical History History of placement of ear tubes Social History adopted: No household members: spouse housing: other details: mobile home number of children: 0 current occupational status: employed current occupation: [employer] pets and animals: Yes pets and animals: dog(s) and other details: python history of recent travel: Yes ([place]) out of state: Yes out of country: No sexually active: Yes Smoking Status: Never smoker second hand exposure: Yes alcohol intake: never substance use type: marijuana and other details: Cannabis, last use ~ 1 month prior, ingested. well-balanced diet: about half the time caffeine: No eating out: 1-3 times/week during the past year weight has: other details: fluxuates 20 # what type of physical activity do you participate in: walking and weight training jose/anabaptist: None seatbelt use: always do you feel safe at home: Yes additional social history: - Markie RIDLEY ED Constitutional Constitutional ED: Reports chills; Denies fever(s) Eyes Eyes: Denies blurry vision or change in vision ENT ENT ED: Reports rhinorrhea; Denies sore throat Cardiovascular Cardiovascular: Denies chest pain or palpitations Respiratory/Chest Respiratory/Chest: Denies cough or dyspnea Gastrointestinal Gastrointestinal: Reports abdominal pain, diarrhea, nausea and vomiting; Denies melena Genitourinary Genitourinary ED: Denies dysuria or hematuria Musculoskeletal Musculoskeletal: Denies back pain or neck pain Integumentary Denies abscess or rash Neurologic Neurologic: Denies headache(s) or weakness Allergic/Immunologic Allergic/Immunologic ED: Denies mouth swelling or urticaria EXAM Physical Exam Const Vital Signs: 11/26/24 07:48 11/26/24 07:50 11/26/24 09:47 Temperature 97.1 F L 97.9 F Temperature Source Temporal Temporal Pulse Rate 92 81 Pulse Rate [Lying] 85 Pulse Rate [Sitting (for 1 minute prior to obtaining)] 90 Pulse Rate [Standing (for 1 minute prior to obtaining)] 80 Respiratory Rate 19 H 17 Blood Pressure 136/78 H 134/80 H Blood Pressure [Lying] 121/76 H Blood Pressure [Sitting (for 1 minute prior to obtaining)] 137/87 H Blood Pressure [Standing (for 1 minute prior to obtaining)] 137/91 H Blood Pressure Mean 97 98 Blood Pressure Mean [Lying] 91 Blood Pressure Mean [Sitting (for 1 minute prior to obtaining)] 103 Blood Pressure Mean [Standing (for 1 minute prior to obtaining)] 106 Pulse Ox 99 100 Oxygen Delivery Method Room Air Room Air 11/26/24 10:05 11/26/24 12:00 11/26/24 13:34 Temperature 97.6 F L Temperature Source Pulse Rate 76 78 78 Pulse Rate [Lying] Pulse Rate [Sitting (for 1 minute prior to obtaining)] Pulse Rate [Standing (for 1 minute prior to obtaining)] Respiratory Rate 20 H 18 18 Blood Pressure 138/87 H 134/83 H 134/83 H Blood Pressure [Lying] Blood Pressure [Sitting (for 1 minute prior to obtaining)] Blood Pressure [Standing (for 1 minute prior to obtaining)] Blood Pressure Mean 104 100 100 Blood Pressure Mean [Lying] Blood Pressure Mean [Sitting (for 1 minute prior to obtaining)] Blood Pressure Mean [Standing (for 1 minute prior to obtaining)] Pulse Ox 95 98 98 Oxygen Delivery Method Room Air Positive well nourished and well developed Constitutional Narrative: BMI is 29.1 General Appearance ED: well developed and NAD HEENT Reports moist mucous membranes Neck supple and no JVD Resp normal respiratory effort and clear to auscultation bilaterally Cardio regular rate and regular rhythm GI non-distended Palpation: soft and tender epigastric, LUQ and RUQ; Negative for guarding or rebound tenderness present Neuro CN's II-XII intact bilaterally, moves all extremities and no sensory deficits noted Sensorium / Orientation: alert Motor Exam: strength 5/5 throughout Psych mental status grossly normal MDM MDM MDM Narrative Medical decision making narrative: Differential diagnosis includes diabetic ketoacidosis, hyperglycemic hyperosmolar nonketotic state, cannabis hyperemesis syndrome, pancreatitis, viral illness, dehydration, and electrolyte abnormality. CBC will be obtained to assess for leukocytosis and anemia. Comprehensive metabolic profile will be obtained to assess for hepatic function, renal function, and electrolyte abnormality. Lipase will be obtained to assess for pancreatitis. Serum hCG will be obtained to assess for . Beta hydroxybutyrate will be obtained to assess for diabetic ketoacidosis. Venous blood gas will be obtained to assess for metabolic acidosis. Urinalysis will be obtained to assess for urinary tract infection and hematuria. History & Record Review Additional record(s) reviewed:: Prior ED visit and Prior labs Lab Data Attestation: I reviewed the patient's lab results. Lab results narrative: CBC was reviewed and was within normal limits. Comprehensive metabolic profile was reviewed. Glucose was elevated at 360. Sodium was normal at 139. Chloride was slightly low at 95. CO2 was normal at 21.8. Anion gap was slightly elevated at 22. The remainder was essentially within normal limits. Lipase was reviewed and was normal at 11. Beta hydroxybutyrate was slightly elevated at 1.8. Serum hCG was reviewed and was negative. Urinalysis was reviewed. There is no evidence of urinary tract infection or hematuria. Repeat BMP after 2 L of fluid showed that the blood sugar is improved to 231. Anion gap is improved to 16. CO2 is slightly low at 18.7. The remainder is within normal limits. Labs: Laboratory Results - last 24 hr 11/26/24 11/26/24 11/26/24 08:09 09:51 11:18 WBC 8.8 RBC 5.30 Hgb 15.1 H Hct 44.2 MCV 83.4 MCH 28.5 MCHC 34.2 RDW Std Deviation 37.8 RDW Coeff of Marilynn 12.5 Plt Count 368 MPV 9.0 Immature Gran % (Auto) 0.200 Neut % (Auto) 83.5 H Lymph % (Auto) 13.0 L [place] % (Auto) 2.7 Eos % (Auto) 0.0 Baso % (Auto) 0.6 Absolute Neuts (auto) 7.3 Absolute Lymphs (auto) 1.14 Nucleated RBC % 0 Sodium 139 141 Potassium 4.0 3.8 Chloride 95 L 106 Carbon Dioxide 21.8 18.7 L Anion Gap 22 H 16 H BUN 14 11 Creatinine 0.68 L 0.50 L Estim Creat Clear Calc 105.81 143.91 Est GFR (MDRD) Non-Af 123 133 BUN/Creatinine Ratio 20.6 H 22.8 H Glucose 360 H 231 H Calcium 10.4 8.1 Total Bilirubin 0.63 AST 38 H ALT 25 Alkaline Phosphatase 136 H Total Protein 8.1 Albumin 4.9 Globulin 3.2 Albumin/Globulin Ratio 1.5 Lipase 11 L b-Hydroxybutyric mmol/L 1.8 Serum , Qual NEGATIVE Urine Color Yellow Urine Clarity Clear Urine pH 8.0 Ur Specific [place] 1.010 Urine Protein 30 H Urine Glucose (UA) 250 H Urine Ketones 150 A* Urine Occult Blood Negative Urine Nitrite Negative Urine Bilirubin Negative Urine Urobilinogen Normal Ur Leukocyte Esterase Negative Urine RBC 0 SEEN Urine WBC 0 SEEN Ur Squamous Epith Cells 0-5 SEEN Urine Bacteria 0 SEEN Urine Mucus 0 SEEN ABG Data Attestation: I personally reviewed and interpreted this ABG as follows: Interpretation: Venous blood gas was obtained. pH is 7.5. pO2 is 113, bicarb is 25, and oxygen saturation 99%. ABG results: ABG 11/26/24 08:18 Specimen Type LUIS Sample Site Not entered VBG pH 7.50 H VBG pO2 113 H VBG HCO3 25 VBG Total CO2 26 VBG O2 Sat (Calc) 99 H VBG Base Excess 2 POC Mix VBG pCO2 Pt Tmp 32.3 L O2 Delivery Device Not entered Treatment and Re-Evaluation :: Patient was given IV fluids, morphine, and Zofran. Patient was feeling better on reevaluation. Patient had taken her subcu insulin prior to coming to the emergency department. Patient was advised that this is improving her blood sugars. Patient was advised that she is not in DKA or hyperosmolar hyperglycemic nonketotic state. Patient was instructed to continue her insulin as prescribed. Patient was instructed to drink plenty of fluids. Patient was instructed to follow-up with her primary care physician in 3 to 5 days. Patient was instructed to return if worse in any way. Patient understood and was agreeable with the plan. All questions were answered. Discharge Plan Triage Chief Complaint: Nausea/Vomiting ED Provider: Damien Dewey Dx/Rx/DC Orders Clinical Impression: Hyperglycemia, Type 1 diabetes mellitus Instructions: ED Diabetic Hyperglycemia Prescriptions: No Action hydroxyzine pamoate [Vistaril] 25 mg capsule 25 mg PO QHS Qty: 30 6RF (DME) Dexcom G6 Sensor Device See Rx Instructions .Route Qty: 9 0RF Rx Instructions: 1 sensor q 10 days (DME) Dexcom G6 Transmitter Device See Rx Instructions .Route Qty: 1 0RF Rx Instructions: As directed albuterol sulfate [Ventolin HFA] 18 GM HFA aerosol inhaler 2 puff inhalation Q4H PRN (Reason: SHORTNES OF BREATH/WHEEZING) fluticasone propionate 50 mcg/actuation spray,suspension 2 spray INTRANASAL DAILY (DME) pen needle, diabetic [BD Ultra-Fine Opal Pen Needle] 32 gauge x 5/32 needle See Rx Instructions .ROUTE .MEDSUPPLY Qty: 120 5RF Rx Instructions: 4 times daily insulin glargine-yfgn 100 unit/mL (3 mL) Insulin Pen 30 unit subcut DAILY Qty: 0 0RF insulin lispro [Humalog KwikPen Insulin] 100 unit/mL Insulin Pen 15 unit subcut TIDAC Qty: 0 0RF metoclopramide HCl [Reglan] 5 mg tablet 5 mg PO DAILY PRN (Reason: nausea and vomiting) 3 Days Qty: 9 0RF (DME) Ketone Urine Test Strip See Rx Instructions .ROUTE .MEDSUPPLY Qty: 50 1RF Rx Instructions: once/day Stand Alone Forms: ED Work / School Excuse Primary Care Provider: Minnie Hodge Referrals: Minnie Hodge [Primary Care Provider] - 3-5 Days Print Language: Cambodian Disposition Disposition: Home, Self Care Discharge Date/Time: 11/26/24 13:35
[2024-11-26] MEDS: 0.9% Normal Saline (1000mL) 1,000 ML 1000 ML IV ×2 (08:12→09:42)
[2024-11-26] MEDS: Ondansetron 4 MG/2 ML Vial IV (08:12)
[2024-11-26 08:19] LABS: Absolute Lymphocyte Count 1.14 X10^3/uL (0.83-4.51); Absolute Neutrophil Count 7.3 X10^3/uL (2.0-7.7); Basophil# 0.05 X10^3/uL; Basophil% 0.6 % (0-1); Hematocrit 44.2 % (37-47); Hemoglobin 15.1 g/dL (12.0-15.0); Lymphocyte # 1.14 X10^3/ul (0.83-4.51); Mean Corp Hgb Conc 34.2 g/dL (32-36); Mean Corpuscular Hgb 28.5 pg (27.0-32.0); Mean Corpuscular Volume 83.4 fL (81-99); Monocyte# 0.24 X10^3/uL; Monocyte% 2.7 % (0-10); NRBC Flagged by Analyzer 0 % (0-5); Neutrophil # 7.32 X10^3/uL (2.7-7.7); Neutrophil % 83.5 % (47-70); Platelet Count 368 K/mm3 (150-450); RBC Distribution Width CV 12.5 % (11.6-14.6); RBC Distribution Width SD 37.8 fl (35.1-43.9); White Blood Count 8.8 K/mm3 (4.4-11.0)
[2024-11-26] MEDS: Morphine 4 MG/ML Syringe IV (08:19)
[2024-11-26 08:22] LABS: Blood Gas Specimen Type VEN; O2 Delivery Device Not entered; SITE Not entered; VBG BASE EXCESS 2 mmol/L (-1.0-3.5); VBG Bicarbonate 25 mmol/L (22-26); VBG PO2 113 mmHg (25-40); VBG SO2 99 % (50-70); VBG TCO2 26 mmol/L (23-33); VBG pCO2 32.3 mmHg (41-51)
[2024-11-26 08:37] LABS: Internal QC Validated? YES +Cl - CLEAR BKGD; Pregnancy, Serum, hCG Quali. NEGATIVE Negative
[2024-11-26 08:51] LABS: BETA-HYDROXYBUTYRATE 1.8 mmol/L (0.0-0.3); Lipase 11 U/L (13-75)
[2024-11-26 08:54] LABS: ALB/GLOB Ratio 1.5 RATIO (0.9-2.4); AST(SGOT) 38 U/L (<=31); Alanine Aminotransfer ALT/SGPT 25 U/L (<=34); Albumin, Serum 4.9 g/dL (3.5-5.0); Alkaline Phosphatase 136 U/L (35-104); Anion Gap 22 (5-15); BUN 14 mg/dL (4-19); BUN/Creat Ratio 20.6 RATIO (10-20); Calcium,Total 10.4 mg/dL (7.6-11.0); Carbon Dioxide 21.8 mmol/L (21.0-32.0); Chloride 95 mmol/L (98-108); Creatinine, Serum 0.68 mg/dL (0.70-1.20); EST Glomerular Filtration Rate 123 (>60); Estimated Creatinine Clearance 105.81 ml/min (50-250); Globulin 3.2 g/dL (2.2-4.2); Glucose 360 mg/dL (70-99); Protein, Total 8.1 g/dL (5.9-8.4); Sodium Level 139 mmol/L (133-145); Total Bilirubin 0.63 mg/dL (0.00-1.30)
[2024-11-26 09:47] VITALS: BP 121/76; BP 137/87; BP 137/91; PULSE 80; PULSE 85; PULSE 90
[2024-11-26 10:00] LABS: Bacteria 0 SEEN /hpf (None Seen); Mucous, Urine 0 SEEN /hpf (<or=2+); Red Blood Cells-Urine 0 SEEN /hpf (0-5); White Blood Cells 0 SEEN /hpf (0-5)
[2024-11-26 10:05] VITALS: BP 138/87; PULSE 76; RESP 20; O2SAT 95
[2024-11-26 10:22] LABS: Color, Urine Yellow (Yellow); Glucose, Dipstick 250 mg/dl (Normal); Leukocyte Esterase-Dipstick Negative /ul (Negative); Nitrite-Dipstick Negative (Negative); Occult Blood-Urine Negative /ul (Negative); Protein-Dipstick 30 mg/dl (Negative); Urine Bilirubin Dipstick Negative (Negative); Urine Clarity Clear (Clear); Urine Urobilinogen Normal (Normal)
[2024-11-26 10:24] LABS: Ketone-Dipstick 150 mg/dl (Negative)
[2024-11-26 10:39] LABS: Squamous Epithelial Cells - UA 0-5 SEEN /hpf (5-10)
[2024-11-26 12:00] VITALS: BP 134/83; PULSE 78; RESP 18; O2SAT 98
[2024-11-26 12:14] LABS: Anion Gap 16 (5-15); BUN 11 mg/dL (4-19); BUN/Creat Ratio 22.8 RATIO (10-20); Calcium,Total 8.1 mg/dL (7.6-11.0); Carbon Dioxide 18.7 mmol/L (21.0-32.0); Chloride 106 mmol/L (98-108); EST Glomerular Filtration Rate 133 (>60); Estimated Creatinine Clearance 143.91 ml/min (50-250); Glucose 231 mg/dL (70-99); Potassium 3.8 mmol/L (3.3-5.1); Sodium Level 141 mmol/L (133-145)
[2024-11-26 13:34] VITALS: BP 134/83; PULSE 78; RESP 18; TEMP 36.4; O2SAT 98
== END 2024-11-26 13:35 | disposition home or self-care (01) ==
PROVIDERS: Emergency Provider Emergency Medicine; Visit Provider Emergency Medicine
DX: E10.65 Type 1 diabetes mellitus with hyperglycemia (principal); Z79.4 Long term (current) use of insulin
CPT/HCPCS: 80048; 80053; 81001; 82010; 82803; 83690; 84703; 85025; 96361; 96374; 96375; 96376; 99284; A4216; J2405

== ENCOUNTER 2024-11-27 12:22 | Observation (INO) | payer MEDICAID, BC, SELFPAY ==
[2024-11-27] VITALS (16 sets, daily range): BP systolic 109–157; BP diastolic 67–88; PULSE 86–127; RESP 12–25; TEMP 36.3–36.7; O2SAT 98–100; BMI 29.0; BMI 28.1
--- NOTE | 2024-11-27 12:26 | EKG12_ITS ---
Test Reason : Blood Pressure : */* mmHG Vent. Rate : 123 BPM Atrial Rate : 123 BPM P-R Int : 130 ms QRS Dur : 80 ms QT Int : 350 ms P-R-T Axes : 68 78 34 degrees QTcB Int : 501 ms Sinus tachycardia Right atrial enlargement Borderline ECG Confirmed by Emery Hughes ([id number]), sound editor ARELY OMALLEY ([id number]) on 11/29/2024 9:06:12 AM Referred By: Zaida Hoff Confirmed By: Emery Hughes
--- NOTE | 2024-11-27 12:29 | EX.ED.DYSGE1 ---
HPI History of Present Illness Chief Complaint: Hyperglycemia Detail of Chief Complaint: My diabetes Informant: patient and spouse/S.O. Onset/Context/Timing Onset: Yesterday (Was seen in the Emergency Department for hyperglycemia with ketosis. She was discharged to home.) Context: Sudden Onset Timing: Continuous Quality: High blood sugar, positive ketones, respiratory symptoms and nausea and vom Location: Generalized Current Severity: Severe Maximum Severity: Severe Worsened by: Possible upper respiratory infection Relieved by: Nothing Associated Symptoms Associated Symptoms: Patient does have history of cannabis hyperemesis syndrome, Narrative Narrative: Patient is a 24-year-old female who is brought in by significant other. She presents because of nausea and vomiting. She was seen yesterday because of abdominal pain with nausea vomit diarrhea. Note authored by Dr. Damien Trimble was reviewed. Patient's urine is positive for ketones however beta hydroxybutyrate was negative/normal Patient does report elevated temperature to 100 ?F. She does endorse nasal congestion with vomiting, cough is productive of colored sputum. Presently she complains of nausea. She has bilious emesis noted in the emesis bag. She denies shortness of breath. She denies black or maroon-colored stool. She states her urine output is decreased. She does endorse dark-colored urine without blood and denies dysuria or urgency. Prior similar symptoms: Yes Recent Illness/Hospitalization: Yes [facility] Medical History Obesity (BMI 30.0-34.9) Insulin dependent type 1 diabetes mellitus Tachycardia Diabetic ketoacidosis Hx of type 1 diabetes mellitus Non-compliance DKA (diabetic ketoacidosis) Type 1 diabetes mellitus with hyperglycemia Hypokalemia Hypophosphatemia Cannabis hyperemesis syndrome concurrent with and due to cannabis abuse DKA, type [address] History of marijuana use Anxiety and depression Insomnia Numbness and tingling Insulin pump titration Presence of insulin pump History of hepatitis A Asthma Diabetes type 1, controlled Home Medications ?Medication ?Instructions ?Recorded ?Last Taken ?Type albuterol sulfate 90 mcg/actuation 2 puff inhalation Q4H PRN SHORTNES 08/25/18 03/02/23 History aerosol inhaler (Ventolin HFA) OF BREATH/WHEEZING Ketone Urine Test (acetone (urine) #50 ea 11/05/21 Unknown Rx test) fluticasone propionate 50 2 spray intranasal DAILY NASAL 11/21/22 02/12/23 History mcg/actuation nasal CONGESTION spray,suspension pen needle, diabetic 32 gauge x #120 ea 11/23/22 Unknown Rx (BD Ultra-Fine Opal Pen Needle) blood-glucose sensor (Dexcom G6 #9 ea 11/10/23 Unknown Rx Sensor device) blood-glucose transmitter (Dexcom #1 ea 11/10/23 Unknown Rx G6 Transmitter device) insulin lispro 100 unit/mL 15 unit (0.15 mL) subcut TIDAC #0 05/14/24 11/27/24 Rx subcutaneous pen (Humalog KwikPen mL (U-100) Insulin) insulin glargine 100 unit/mL (3 20 unit subcut DAILY 11/27/24 11/26/24 History mL) subcutaneous pen (Basaglar KwikPen U-100 Insulin) Allergy/AdvReac Type Severity Reaction Status Date / Time bee venom protein (honey Allergy Severe Anaphylaxis Verified 11/27/24 12:22 bee) (bee stings) Sulfa (Sulfonamide Allergy Unknown Verified 11/27/24 12:22 Antibiotics) prednisone AdvReac Vomiting Verified 11/27/24 12:22 Family History Grandmother Diabetes Sister Asthma Brother Asthma Mother Heart disease Surgical History History of placement of ear tubes Social History adopted: No household members: spouse housing: other details: mobile home number of children: 0 current occupational status: employed current occupation: [employer] pets and animals: Yes pets and animals: dog(s) and other details: python history of recent travel: Yes ([place]) out of state: Yes out of country: No sexually active: Yes Smoking Status: Current some day smoker tobacco type: pipe second hand exposure: Yes alcohol intake: never substance use type: marijuana and other details: Cannabis, last use ~ 1 month prior, ingested. well-balanced diet: about half the time caffeine: No eating out: 1-3 times/week during the past year weight has: other details: fluxuates 20 # what type of physical activity do you participate in: walking and weight training jose/mu-ism: None seatbelt use: always do you feel safe at home: Yes additional social history: - Markie RIDLEY ED Constitutional Constitutional ED: Reports chills and fever(s); Denies sweats Eyes Eyes: Denies blurry vision, change in vision or diplopia ENT ENT ED: Denies ear pain, rhinorrhea or sore throat Cardiovascular Cardiovascular: Denies chest pain, orthopnea, palpitations or paroxysmal nocturnal dyspnea Respiratory/Chest Respiratory/Chest: Reports cough and sputum; Denies dyspnea, dyspnea on exertion, orthopnea or paroxysmal nocturnal dyspnea Gastrointestinal Gastrointestinal: Reports abdominal pain, nausea and vomiting; Denies constipation, diarrhea or melena Genitourinary Genitourinary ED: Denies dysuria, hematuria or urinary frequency Musculoskeletal Musculoskeletal: Denies arthralgias or myalgias Integumentary Denies rash Neurologic Neurologic: Reports weakness; Denies headache(s) or paresthesias Psychiatric Psychiatric: Denies anxiety or depression Endocrine Endocrinology: Denies cold intolerance or heat intolerance Hematologic/Lymphatic Hematologic/Lymphatic: Reports systems reviewed and no addt'l complaints, except as documented EXAM Physical Exam Const Vital Signs: 11/27/24 12:23 11/27/24 13:22 11/27/24 14:00 Temperature 97.3 F L Temperature Source Temporal Pulse Rate 127 H 92 Respiratory Rate 16 12 Blood Pressure 141/83 H 157/87 H 136/67 H Blood Pressure Mean 102 110 90 Pulse Ox 100 100 99 Oxygen Delivery Method Room Air Room Air Room Air Positive well nourished and well developed General Appearance ED: well developed; Negative for cyanotic, diaphoretic or pallor HEENT Reports moist mucous membranes HEENT Narrative: Head is atraumatic normocephalic. Ears are normal. Nares are patent. Posterior pharynx without erythema or exudate. Eyes PERRL and EOMs intact bilaterally General Eye ED: Negative for pale conjunctiva or scleral icterus Chest Wall inspection of chest normal and palpation of chest normal Resp normal respiratory effort and clear to auscultation bilaterally Cardio regular rhythm, S1 normal heart sound, S2 normal heart sound and no murmurs Rate: tachycardic GI non-distended and no masses; Negative for non-tender or hepatosplenomegaly Auscultation: hypoactive bowel sounds Palpation: soft Back/Spine no CVA tenderness Extremity normal to inspection General Extremety ED: Negative for edema or tenderness General Extremity: Negative for edema Neuro oriented x3, CN's II-XII intact bilaterally and no sensory deficits noted Sensorium / Orientation: alert Motor Exam: strength 5/5 throughout Psych mental status grossly normal Skin no rashes or lesions noted, no wounds and skin turgor normal General Skin Exam: elasticity normal; Negative for jaundice or pallor MDM MDM MDM Narrative Medical decision making narrative: With elevated blood sugar positive ketones in urine he to evaluate for DKA. DKA order set was initiated. Because she has a cough did not have a chest x-ray yesterday a chest x-ray was ordered for today. She received 1 L of normal saline wide open. Her abdominal pain nausea vomiting may be due to cannabis hyperemesis syndrome. Other causes would be viral illness, DKA. History & Record Review Additional record(s) reviewed:: Prior ED visit and Prior labs Lab Data Attestation: I reviewed the patient's lab results. Lab results narrative: White count is elevated 16.1 thousand with 91% segs. Electrolyte panel is remarked for glucose of 335 with a CO2 of 11.2 and anion gap of 26. Beta hydroxybutyrate is elevated at 5.8. This is higher than yesterday. Yesterday is 1.8 which is above upper end of normal. Labs: Laboratory Results - last 24 hr 11/27/24 11/27/24 13:16 14:25 WBC 16.1 H RBC 5.14 Hgb 14.9 Hct 44.4 MCV 86.4 MCH 29.0 MCHC 33.6 RDW Std Deviation 40.5 RDW Coeff of Marilynn 12.9 Plt Count 410 MPV 8.7 Immature Gran % (Auto) 0.400 Neut % (Auto) 91.3 H Lymph % (Auto) 5.9 L [place] % (Auto) 2.1 Eos % (Auto) 0.0 Baso % (Auto) 0.3 Absolute Neuts (auto) 14.7 H Absolute Lymphs (auto) 0.94 Nucleated RBC % 0 Sodium 136 Potassium 3.6 Chloride 97 L Carbon Dioxide 11.2 L Anion Gap 28 H BUN 16 Creatinine 0.82 Estim Creat Clear Calc 87.69 Est GFR (MDRD) Non-Af 102 BUN/Creatinine Ratio 20.1 H Glucose 335 H Calcium 10.0 b-Hydroxybutyric mmol/L 5.8 Urine Color Yellow Urine Clarity Clear Urine pH 5.0 Ur Specific [place] 1.025 Urine Protein 30 H Urine Glucose (UA) 1000 H Urine Ketones 150 A* Urine Occult Blood 10 H Urine Nitrite Negative Urine Bilirubin Negative Urine Urobilinogen Normal Ur Leukocyte Esterase Negative ABG Data ABG results: ABG 11/27/24 13:25 Specimen Type LUIS Sample Site Not entered VBG pH 7.29 L VBG pO2 80 H VBG HCO3 12 L VBG Total CO2 12 L VBG O2 Sat (Calc) 95 H VBG Base Excess -15 L POC Mix VBG pCO2 Pt Tmp 24.2 L O2 Delivery Device Not entered Radiography Chest X-Ray - ED: 1 View, Read by ED Physician, Normal, Heart, Mediastinum, Bony Structures and No Acute Disease Diagnostic Testing: Clinical Impression(s) from Imaging Studies Chest X-Ray 11/27/24 13:39 IMPRESSION: No acute cardiopulmonary process. Reading Location: [facility] EKG Initial EKG: Attestation: I personally reviewed and interpreted this EKG as follows: Interpretation: Sinus Tachycardia (Rate is 123. OK interval is 130 ms. Cures duration 80 ms. QT duration 3 and 50 ms. [place] is normal. There is evidence of right atrial enlargement. There is also decreased anterior force. There is no peaked T waves to suggest hyperkalemia.) Management Discussion w/another healthcare provider: Hospitalist (Case was discussed with Dr. Zaida Hoff. Full admission to to ICU for DKA) Treatment and Re-Evaluation :: There is inform me at approximately 1322 the patient is complaining of nausea with vomiting. She is diabetic and may have gastroparesis she was treated with Reglan. This also has previously noted may be due to cannabis hyperemesis syndrome. Critical Care Time Critical Care Time: Yes Critical care time (excluding procedures): 30-74 minutes (36), Including time spent: (History, physical, documentation, review of prior records, independent rotation laboratory results and images), Discussing w/Patient &/or Family/Income Tax Investigator (Informed patient that she will be admitted to the ICU for DKA. Went over her labs), Discussing w/Consultants (Case discussed with Dr. Zaida Hoff. 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 Prescriptions: No Action (DME) Dexcom G6 Sensor Device See Rx Instructions .Route Qty: 9 0RF Rx Instructions: 1 sensor q 10 days (DME) Dexcom G6 Transmitter Device See Rx Instructions .Route Qty: 1 0RF Rx Instructions: As directed albuterol sulfate [Ventolin HFA] 18 GM HFA aerosol inhaler 2 puff inhalation Q4H PRN (Reason: SHORTNES OF BREATH/WHEEZING) fluticasone propionate 50 mcg/actuation spray,suspension 2 spray INTRANASAL DAILY (DME) pen needle, diabetic [BD Ultra-Fine Opal Pen Needle] 32 gauge x 5/32 needle See Rx Instructions .ROUTE .MEDSUPPLY Qty: 120 5RF Rx Instructions: 4 times daily insulin lispro [Humalog KwikPen Insulin] 100 unit/mL Insulin Pen 15 unit subcut TIDAC Qty: 0 0RF insulin glargine [Basaglar KwikPen U-100 Insulin] 100 unit/mL (3 mL) insulin pen 20 unit subcut DAILY (DME) Ketone Urine Test Strip See Rx Instructions .ROUTE .MEDSUPPLY Qty: 50 1RF Rx Instructions: once/day Primary Care Provider: Minnie Hodge Referrals: Minnie Hodge [Primary Care Provider] - Print Language: Rwandan Disposition Disposition: Acute Care Hospital [facility]
[2024-11-27 13:24] LABS: Absolute Lymphocyte Count 0.94 X10^3/uL (0.83-4.51); Absolute Neutrophil Count 14.7 X10^3/uL (2.0-7.7); Basophil# 0.05 X10^3/uL; Basophil% 0.3 % (0-1); Hematocrit 44.4 % (37-47); Hemoglobin 14.9 g/dL (12.0-15.0); Lymphocyte # 0.94 X10^3/ul (0.83-4.51); Lymphocyte % 5.9 % (19-41); Mean Corp Hgb Conc 33.6 g/dL (32-36); Mean Corpuscular Volume 86.4 fL (81-99); Mean Platelet Vol. 8.7 fl (6.2-12.0); Monocyte# 0.34 X10^3/uL; Monocyte% 2.1 % (0-10); NRBC Flagged by Analyzer 0 % (0-5); Neutrophil # 14.67 X10^3/uL (2.7-7.7); Neutrophil % 91.3 % (47-70); Platelet Count 410 K/mm3 (150-450); RBC Distribution Width CV 12.9 % (11.6-14.6); RBC Distribution Width SD 40.5 fl (35.1-43.9); Red Blood Count 5.14 M/mm3 (4.2-5.4); White Blood Count 16.1 K/mm3 (4.4-11.0)
[2024-11-27] MEDS: Metoclopramide 10 MG/2 ML Vial 5 MG IV (13:27)
[2024-11-27] MEDS: 0.9% Normal Saline (1000mL) 1,000 ML 999 ML IV ×3 (13:28→16:28)
[2024-11-27 13:30] LABS: Blood Gas Specimen Type VEN; O2 Delivery Device Not entered; SITE Not entered; VBG BASE EXCESS -15 mmol/L (-1.0-3.5); VBG Bicarbonate 12 mmol/L (22-26); VBG PO2 80 mmHg (25-40); VBG SO2 95 % (50-70); VBG TCO2 12 mmol/L (23-33); VBG pCO2 24.2 mmHg (41-51); VBG pH 7.29 (7.32-7.42)
--- NOTE | 2024-11-27 13:39 | RAD_ITS ---
EXAM: XR Chest, 2 Views CLINICAL INDICATION: PRODUCTIVE COUGH TECHNIQUE: Frontal and lateral views of the chest. COMPARISON: No relevant prior studies available. FINDINGS: LUNGS AND PLEURAL SPACES: Unremarkable. No consolidation. No pneumothorax. HEART: Unremarkable. No cardiomegaly. MEDIASTINUM: Unremarkable. Normal mediastinal contour. BONES/JOINTS: Unremarkable. No acute fracture. RAD/Chest PA and Lateral IMPRESSION: No acute cardiopulmonary process. Reading Location: [id number]
[2024-11-27 14:02] LABS: BETA-HYDROXYBUTYRATE 5.8 mmol/L (0.0-0.3)
[2024-11-27 14:03] LABS: Anion Gap 28 (5-15); BUN 16 mg/dL (4-19); BUN/Creat Ratio 20.1 RATIO (10-20); Carbon Dioxide 11.2 mmol/L (21.0-32.0); Chloride 97 mmol/L (98-108); Creatinine, Serum 0.82 mg/dL (0.70-1.20); EST Glomerular Filtration Rate 102 (>60); Estimated Creatinine Clearance 87.69 ml/min (50-250); Glucose 335 mg/dL (70-99); Potassium 3.6 mmol/L (3.3-5.1); Sodium Level 136 mmol/L (133-145)
[2024-11-27 14:31] LABS: Bacteria 0 SEEN /hpf (None Seen); Mucous, Urine 0 SEEN /hpf (<or=2+); Red Blood Cells-Urine 0 SEEN /hpf (0-5); White Blood Cells 0 SEEN /hpf (0-5)
[2024-11-27 14:33] LABS: Color, Urine Yellow (Yellow); Glucose, Dipstick 1000 mg/dl (Normal); Leukocyte Esterase-Dipstick Negative /ul (Negative); Nitrite-Dipstick Negative (Negative); Occult Blood-Urine 10 /ul (Negative); Protein-Dipstick 30 mg/dl (Negative); Specific Gravity, Urine 1.025 (1.002-1.030); Urine Bilirubin Dipstick Negative (Negative); Urine Clarity Clear (Clear); Urine Urobilinogen Normal (Normal)
[2024-11-27 14:34] LABS: Ketone-Dipstick 150 mg/dl (Negative)
[2024-11-27 14:38] LABS: Squamous Epithelial Cells - UA 0-5 SEEN /hpf (5-10)
[2024-11-27 14:39] LABS: Hyaline Cast 0-5 SEEN /lpf (0-5)
--- NOTE | 2024-11-27 15:42 | ED.RN ---
Dr. Mcghee and Dr. Hoff notified of BG and holding of insulin until new orders are obtained.
--- NOTE | 2024-11-27 15:42 | PCM.HP.STD ---
HPI - General General Date of Admission: 11/27/24 Date of Service: 11/27/24 Chief Complaint: DKA HPI Narrative KALIE DESIR, is a Patient is a 24-year-old female with history of type 1 diabetes, cannabis emesis syndrome, asthma who presented to [facility] ED with her significant other 11/27/2024 with nausea and vomiting. She was seen yesterday because of abdominal pain with nausea, vomiting, diarrhea but ultimately was discharged home as there was ketones in urine but beta hydroxybutyrate did not flagged as abnormal. Patient reports that her symptoms and persisted now she is having diarrhea prompting her to come back to the ED. In the ED temperature 97.3, heart rate initially 127 with blood pressure 141/83, respiratory rate 16 pulse ox 100% on room air. White blood cell count of 16, and his blood gas with pH of 7.29, BMP demonstrated bicarb of 11.2 with anion gap of 28 and glucose of 335, urine ketones positive and beta hydroxybutyrate elevated at 5.8. Chest x-ray with no acute process. Patient diagnosed with DKA and given IV fluids and IV insulin her hospitalist contacted for admission to the ICU. Patient evaluated bedside and reports that starting at 3 AM yesterday she had diarrhea, nausea, vomiting, is getting hot flashes but has not had a temperature over 100 degrees, gets a little bit of a cough and runny nose when she vomits but nothing independent of that, reports she is still taking her insulin. Presently still having a little bit abdominal pain but mostly some burning and acid feeling in her chest, has not had diarrhea since this morning but has not gone to the bathroom since then, is still nauseous, has felt like she needed to take deep breaths but not overtly short of breath and only a little bit of a cough associated with her vomiting [facility] Medical History Obesity (BMI 30.0-34.9) Insulin dependent type 1 diabetes mellitus Tachycardia Diabetic ketoacidosis Hx of type 1 diabetes mellitus Non-compliance DKA (diabetic ketoacidosis) Type 1 diabetes mellitus with hyperglycemia Hypokalemia Hypophosphatemia Cannabis hyperemesis syndrome concurrent with and due to cannabis abuse DKA, type [address] History of marijuana use Anxiety and depression Insomnia Numbness and tingling Insulin pump titration Presence of insulin pump History of hepatitis A Asthma Diabetes type 1, controlled Home Medications ?Medication ?Instructions ?Recorded ?Last Taken ?Type albuterol sulfate 90 mcg/actuation 2 puff inhalation Q4H PRN SHORTNES 08/25/18 03/02/23 History aerosol inhaler (Ventolin HFA) OF BREATH/WHEEZING Ketone Urine Test (acetone (urine) #50 ea 11/05/21 Unknown Rx test) fluticasone propionate 50 2 spray intranasal DAILY NASAL 11/21/22 02/12/23 History mcg/actuation nasal CONGESTION spray,suspension pen needle, diabetic 32 gauge x #120 ea 11/23/22 Unknown Rx (BD Ultra-Fine Opal Pen Needle) blood-glucose sensor (Dexcom G6 #9 ea 11/10/23 Unknown Rx Sensor device) blood-glucose transmitter (Dexcom #1 ea 11/10/23 Unknown Rx G6 Transmitter device) insulin lispro 100 unit/mL 15 unit (0.15 mL) subcut TIDAC #0 05/14/24 11/27/24 Rx subcutaneous pen (Humalog KwikPen mL (U-100) Insulin) insulin glargine 100 unit/mL (3 20 unit subcut DAILY 11/27/24 11/26/24 History mL) subcutaneous pen (Basaglar KwikPen U-100 Insulin) Allergy/AdvReac Type Severity Reaction Status Date / Time bee venom protein (honey Allergy Severe Anaphylaxis Verified 11/27/24 12:22 bee) (bee stings) Sulfa (Sulfonamide Allergy Unknown Verified 11/27/24 12:22 Antibiotics) prednisone AdvReac Vomiting Verified 11/27/24 12:22 Family History Grandmother Diabetes Sister Asthma Brother Asthma Mother Heart disease Surgical History History of placement of ear tubes Social History adopted: No household members: spouse housing: other details: mobile home number of children: 0 current occupational status: employed current occupation: [employer] pets and animals: Yes pets and animals: dog(s) and other details: python history of recent travel: Yes ([place]) out of state: Yes out of country: No sexually active: Yes Smoking Status: Current some day smoker tobacco type: pipe second hand exposure: Yes alcohol intake: never substance use type: marijuana and other details: Cannabis, last use ~ 1 month prior, ingested. well-balanced diet: about half the time caffeine: No eating out: 1-3 times/week during the past year weight has: other details: fluxuates 20 # what type of physical activity do you participate in: walking and weight training jose/hinduism: None seatbelt use: always do you feel safe at home: Yes additional social history: - Markie RIDLEY Narrative General: Intermittent hot flash feeling HENT: Denies headache, some nasal running when she vomits, denies sore throat EYES: Denies changes in vision Resp: Denies cough, does feel the need to take a big breath but no overt shortness of breath Cardiac: Denies chest pain GI: Some abdominal pain, nausea, diarrhea : Dark urine Extremity: Denies swelling MSK: Some generalized weakness Neuro: Denies any numbness/tingling Heme: Denies any bleeding or bruising Skin: Denies rashes Psychiatric: No complaints voiced Vital Signs Vital Signs Vital Signs: 11/27/24 12:23 11/27/24 13:22 11/27/24 14:00 Temperature 97.3 F L Temperature Source Temporal Pulse Rate 127 H 92 Respiratory Rate 16 12 Blood Pressure 141/83 H 157/87 H 136/67 H Blood Pressure Mean 102 110 90 Pulse Ox 100 100 99 Oxygen Delivery Method Room Air Room Air Room Air 11/27/24 15:00 11/27/24 15:34 Temperature 97.3 F L Temperature Source Pulse Rate 97 97 Respiratory Rate 19 H 19 H Blood Pressure 126/88 H 126/88 H Blood Pressure Mean 100 100 Pulse Ox 98 98 Oxygen Delivery Method Weight Weight: 65.317 kg Body Mass Index (BMI) 29.0 Physical Exam Narrative General: Alert, oriented HEENT: Atraumatic, normocephalic Eyes: Anicteric, normal conjunctiva, extraocular movements grossly intact Neck: Supple Respiratory: Clear to auscultation bilaterally, normal respiratory effort Cardiovascular: Regular rate and rhythm GI: Soft, little bit of diffuse tenderness Extremities: No edema Musculoskeletal: Moving all extremities Neuro: No overt focal neurological deficits Skin: No rashes appreciated Psych: Cooperative Results Lab / Micro Data 11/27/24 13:16 11/27/24 13:16 Labs: Laboratory Results - last 24 hr 11/27/24 13:16: WBC 16.1 H, RBC 5.14, Hgb 14.9, Hct 44.4, MCV 86.4, MCH 29.0, MCHC 33.6, RDW Std Deviation 40.5, RDW Coeff of Marilynn 12.9, Plt Count 410, MPV 8.7, Immature Gran % (Auto) 0.400, Neut % (Auto) 91.3 H, Lymph % (Auto) 5.9 L, [place] % (Auto) 2.1, Eos % (Auto) 0.0, Baso % (Auto) 0.3, Absolute Neuts (auto) 14.7 H, Absolute Lymphs (auto) 0.94, Nucleated RBC % 0, Sodium 136, Potassium 3.6, Chloride 97 L, Carbon Dioxide 11.2 L, Anion Gap 28 H, BUN 16, Creatinine 0.82, Estim Creat Clear Calc 87.69, Est GFR (MDRD) Non-Af 102, BUN/Creatinine Ratio 20.1 H, Glucose 335 H, Calcium 10.0, b-Hydroxybutyric mmol/L 5.8 11/27/24 14:25: Urine Color Yellow, Urine Clarity Clear, Urine pH 5.0, Ur Specific [place] 1.025, Urine Protein 30 H, Urine Glucose (UA) 1000 H, Urine Ketones 150 A*, Urine Occult Blood 10 H, Urine Nitrite Negative, Urine Bilirubin Negative, Urine Urobilinogen Normal, Ur Leukocyte Esterase Negative, Urine RBC 0 SEEN, Urine WBC 0 SEEN, Ur Squamous Epith Cells 0-5 SEEN, Urine Bacteria 0 SEEN, Hyaline Casts 0-5 SEEN, Urine Mucus 0 SEEN ABG Data ABG results: ABG 11/27/24 13:25 Specimen Type LUIS Sample Site Not entered VBG pH 7.29 L VBG pO2 80 H VBG HCO3 12 L VBG Total CO2 12 L VBG O2 Sat (Calc) 95 H VBG Base Excess -15 L POC Mix VBG pCO2 Pt Tmp 24.2 L O2 Delivery Device Not entered Imaging Radiology Impression Chest X-Ray 11/27/24 13:39 IMPRESSION: No acute cardiopulmonary process. [facility] Assessment/Plan (1) Diabetic ketoacidosis: QUALIFIERS: Diabetes mellitus type: type 1 Diabetes mellitus complication detail: without coma Qualified Code(s): E10.10 - Type 1 diabetes mellitus with ketoacidosis without coma (2) Insulin dependent type 1 diabetes mellitus: QUALIFIERS: Diabetes mellitus complication status: with ketoacidosis Diabetes mellitus complication detail: without coma Qualified Code(s): E10.10 - Type 1 diabetes mellitus with ketoacidosis without coma PLAN: Plan #DKA in setting of chronic type 1 diabetes -Serum glucose in ED 335, anion gap 28 -Urine ketones 150 -Serum beta hydroxybutyrate 5.8 -Admit to intensive care unit -N.p.o. -Insulin drip started -Aggressive fluid hydration -Glucose checks and DKA protocol -BMP every 4H -Replace electrolytes per protocol -I's and O's -A1c in the a.m. -When serum glucose is <250 mg/dl, change IV fluids to D5%1/2NS at 150 ml/hr and continue insulin drip as per nomogram # History of asthma - Albuterol as needed #DVT ppx: SCDs Zaida Hoff MD Time spent in the patient's overall evaluation, decision-making process, review of diagnostic data, adjustment of management, discussion with other providers, nursing and ancillary staff involved in patient's care documentation, 57 Minutes Charges/Coding Visit Charges Inpatient E&M: 81403 Init Hosp L2
[2024-11-27 15:43] LABS: Bedside Glucose 199 mg/dL (74-106)
[2024-11-27 16:18] LABS: Bedside Glucose 181 mg/dL (74-106)
[2024-11-27] MEDS: Insulin Lispro 100 UNIT in 0.9% Normal Saline (100mL Bag) 99 ML CONT INF (16:41)
[2024-11-27 17:14] LABS: Anion Gap 20 (5-15); BUN 15 mg/dL (4-19); BUN/Creat Ratio 21.8 RATIO (10-20); Calcium,Total 8.3 mg/dL (7.6-11.0); Chloride 106 mmol/L (98-108); Creatinine, Serum 0.68 mg/dL (0.70-1.20); EST Glomerular Filtration Rate 123 (>60); Estimated Creatinine Clearance 104.06 ml/min (50-250); Glucose 205 mg/dL (70-99); Potassium 3.7 mmol/L (3.3-5.1); Sodium Level 138 mmol/L (133-145)
[2024-11-27 17:22] LABS: Internal QC Validated? YES +Cl - CLEAR BKGD; Pregnancy, Urine Negative Negative
[2024-11-27] MEDS: Ondansetron 4 MG/2 ML Vial IV (17:22)
[2024-11-27] MEDS: 0.9% Normal Saline (1000mL) 1,000 ML 500 ML IV (17:33)
[2024-11-27] MEDS: TITRATION PARAMETER CHANGE 1 EACH IV (17:34)
[2024-11-27] MEDS: Dext 5%-0.45% NS 1,000 ML 150 ML IV (18:22)
[2024-11-27 19:21] LABS: Bedside Glucose 140 mg/dL (74-106)
[2024-11-27 19:21] LABS: Bedside Glucose 155 mg/dL (74-106)
[2024-11-27 19:21] LABS: Bedside Glucose 174 mg/dL (74-106)
[2024-11-27] MEDS: 0.9% Normal Saline (1000mL) 1,000 ML 250 ML IV (19:48)
[2024-11-27] MEDS: proCHLORPERazine 10 MG/2 ML Vial 5 MG IV (21:04)
[2024-11-27 21:34] LABS: Anion Gap 15 (5-15); BUN 12 mg/dL (4-19); BUN/Creat Ratio 20.3 RATIO (10-20); Calcium,Total 7.5 mg/dL (7.6-11.0); Carbon Dioxide 13.8 mmol/L (21.0-32.0); Chloride 109 mmol/L (98-108); Creatinine, Serum 0.59 mg/dL (0.70-1.20); EST Glomerular Filtration Rate 128 (>60); Estimated Creatinine Clearance 119.94 ml/min (50-250); Glucose 162 mg/dL (70-99); Potassium 3.4 mmol/L (3.3-5.1); Sodium Level 138 mmol/L (133-145)
[2024-11-27 22:13] LABS: Bedside Glucose 126 mg/dL (74-106)
[2024-11-27 22:13] LABS: Bedside Glucose 139 mg/dL (74-106)
[2024-11-27 23:35] LABS: Bedside Glucose 214 mg/dL (74-106)
[2024-11-27 23:35] LABS: Bedside Glucose 187 mg/dL (74-106)
[2024-11-28] VITALS (14 sets, daily range): BP systolic 104–141; BP diastolic 58–86; PULSE 73–93; RESP 16–23; TEMP 36.3–36.7; O2SAT 94–100; BMI 32.8
[2024-11-28] MEDS: 0.9% Normal Saline (1000mL) 1,000 ML 250 ML IV (00:18)
[2024-11-28 00:19] LABS: Bedside Glucose 190 mg/dL (74-106)
[2024-11-28] MEDS: Dext 5%-0.45% NS 1,000 ML 150 ML IV (01:05)
[2024-11-28 01:07] LABS: Anion Gap 12 (5-15); BUN 9 mg/dL (4-19); BUN/Creat Ratio 17.4 RATIO (10-20); Calcium,Total 7.3 mg/dL (7.6-11.0); Carbon Dioxide 16.5 mmol/L (21.0-32.0); Chloride 110 mmol/L (98-108); Creatinine, Serum 0.52 mg/dL (0.70-1.20); EST Glomerular Filtration Rate 131 (>60); Estimated Creatinine Clearance 136.08 ml/min (50-250); Glucose 179 mg/dL (70-99); Sodium Level 139 mmol/L (133-145)
[2024-11-28 01:26] LABS: Bedside Glucose 155 mg/dL (74-106)
[2024-11-28 02:30] LABS: BETA-HYDROXYBUTYRATE 1.3 mmol/L (0.0-0.3)
[2024-11-28 04:17] LABS: Absolute Lymphocyte Count 1.29 X10^3/uL (0.83-4.51); Absolute Neutrophil Count 10.3 X10^3/uL (2.0-7.7); Basophil# 0.02 X10^3/uL; Basophil% 0.2 % (0-1); Hemoglobin 11.5 g/dL (12.0-15.0); Lymphocyte # 1.29 X10^3/ul (0.83-4.51); Lymphocyte % 10.4 % (19-41); Mean Corp Hgb Conc 33.8 g/dL (32-36); Mean Corpuscular Hgb 28.9 pg (27.0-32.0); Mean Corpuscular Volume 85.4 fL (81-99); Mean Platelet Vol. 8.7 fl (6.2-12.0); Monocyte# 0.83 X10^3/uL; Monocyte% 6.7 % (0-10); NRBC Flagged by Analyzer 0 % (0-5); Neutrophil # 10.26 X10^3/uL (2.7-7.7); Neutrophil % 82.4 % (47-70); Platelet Count 296 K/mm3 (150-450); RBC Distribution Width CV 12.7 % (11.6-14.6); RBC Distribution Width SD 39.4 fl (35.1-43.9); Red Blood Count 3.98 M/mm3 (4.2-5.4); White Blood Count 12.4 K/mm3 (4.4-11.0)
[2024-11-28 04:18] LABS: Bedside Glucose 156 mg/dL (74-106)
[2024-11-28 04:18] LABS: Bedside Glucose 120 mg/dL (74-106)
[2024-11-28 04:18] LABS: Bedside Glucose 126 mg/dL (74-106)
[2024-11-28] MEDS: 0.9% Normal Saline (1000mL) 1,000 ML 75 ML IV (04:33)
[2024-11-28 04:43] LABS: BETA-HYDROXYBUTYRATE 2.9 mmol/L (0.0-0.3)
[2024-11-28 04:55] LABS: Anion Gap 14 (5-15); BUN 7 mg/dL (4-19); BUN/Creat Ratio 16.4 RATIO (10-20); Calcium,Total 7.1 mg/dL (7.6-11.0); Carbon Dioxide 15.6 mmol/L (21.0-32.0); Chloride 108 mmol/L (98-108); Creatinine, Serum 0.45 mg/dL (0.70-1.20); EST Glomerular Filtration Rate 136 (>60); Estimated Creatinine Clearance 157.25 ml/min (50-250); Glucose 165 mg/dL (70-99); Magnesium 1.8 mg/dL (1.5-2.2); Potassium 2.9 mmol/L (3.3-5.1); Sodium Level 138 mmol/L (133-145)
[2024-11-28 05:21] LABS: Hemoglobin A1c 12.4 % (<=5.6)
[2024-11-28 07:47] LABS: Bedside Glucose 144 mg/dL (74-106)
[2024-11-28 07:47] LABS: Bedside Glucose 143 mg/dL (74-106)
--- NOTE | 2024-11-28 07:50 | PN.HOSP_ITS ---
Reason for Visit Reason for Visit: Diagnoses Type 1 diabetes mellitus with ketoacidosis without coma (11/27/24) Subjective Subjective Feeling well. States that she has cut back on on marijuana. Objective Data Objective Data Vital Signs: Vital Signs Temp Pulse Resp BP Pulse Ox O2 Del Method 36.6 C 77 22 H 123/65 H 100 Room Air 11/28/24 06:00 11/28/24 07:00 11/28/24 07:00 11/28/24 07:00 11/28/24 07:00 11/28/24 07:00 Oxygen Delivery Method Room Air Weight: 74 kg Body Mass Index (BMI) 32.8 Intake & Output: Intake and Output for Last 24 Hours 11/26/24 11/27/24 11/28/24 23:59 23:59 23:59 Intake Total 5010.14 / 5014.14 2021 Balance 5010.14 / 5014.14 2021 Lab / Micro Data 11/28/24 03:55 11/28/24 08:25 Labs: Laboratory Results - last 24 hr 11/27/24 13:16: WBC 16.1 H, RBC 5.14, Hgb 14.9, Hct 44.4, MCV 86.4, MCH 29.0, MCHC 33.6, RDW Std Deviation 40.5, RDW Coeff of Marilynn 12.9, Plt Count 410, MPV 8.7, Immature Gran % (Auto) 0.400, Neut % (Auto) 91.3 H, Lymph % (Auto) 5.9 L, [place] % (Auto) 2.1, Eos % (Auto) 0.0, Baso % (Auto) 0.3, Absolute Neuts (auto) 14.7 H, Absolute Lymphs (auto) 0.94, Nucleated RBC % 0, Sodium 136, Potassium 3.6, Chloride 97 L, Carbon Dioxide 11.2 L, Anion Gap 28 H, BUN 16, Creatinine 0.82, Estim Creat Clear Calc 87.69, Est GFR (MDRD) Non-Af 102, BUN/Creatinine Ratio 20.1 H, Glucose 335 H, Calcium 10.0, b-Hydroxybutyric mmol/L 5.8 11/27/24 14:25: Urine Color Yellow, Urine Clarity Clear, Urine pH 5.0, Ur Specific [place] 1.025, Urine Protein 30 H, Urine Glucose (UA) 1000 H, Urine Ketones 150 A*, Urine Occult Blood 10 H, Urine Nitrite Negative, Urine Bilirubin Negative, Urine Urobilinogen Normal, Ur Leukocyte Esterase Negative, Urine RBC 0 SEEN, Urine WBC 0 SEEN, Ur Squamous Epith Cells 0-5 SEEN, Urine Bacteria 0 SEEN, Hyaline Casts 0-5 SEEN, Urine Mucus 0 SEEN, Urine Test Negative 11/27/24 15:21: POC Glucose 199 H 11/27/24 15:58: POC Glucose 181 H 11/27/24 16:10: Sodium 138, Potassium 3.7, Chloride 106, Carbon Dioxide 13.0 L, Anion Gap 20 H, BUN 15, Creatinine 0.68 L, Estim Creat Clear Calc 104.06, Est GFR (MDRD) Non-Af 123, BUN/Creatinine Ratio 21.8 H, Glucose 205 H, Calcium 8.3, Magnesium 2.0, TSH 3.740 11/27/24 17:09: POC Glucose 174 H 11/27/24 18:02: POC Glucose 155 H 11/27/24 19:02: POC Glucose 140 H 11/27/24 20:04: POC Glucose 126 H 11/27/24 20:10: Sodium 138, Potassium 3.4, Chloride 109 H, Carbon Dioxide 13.8 L , Anion Gap 15, BUN 12, Creatinine 0.59 L, Estim Creat Clear Calc 119.94, Est GFR (MDRD) Non-Af 128, BUN/Creatinine Ratio 20.3 H, Glucose 162 H, Calcium 7.5 L 11/27/24 21:08: POC Glucose 139 H 11/27/24 21:58: POC Glucose 187 H 11/27/24 23:13: POC Glucose 214 H 11/27/24 23:59: POC Glucose 190 H 11/28/24 00:40: Sodium 139, Potassium 3.0 L, Chloride 110 H, Carbon Dioxide 16.5 L, Anion Gap 12, BUN 9, Creatinine 0.52 L, Estim Creat Clear Calc 136.08, Est GFR (MDRD) Non-Af 131, BUN/Creatinine Ratio 17.4, Glucose 179 H, Calcium 7.3 L 11/28/24 01:07: POC Glucose 155 H 11/28/24 01:56: POC Glucose 126 H 11/28/24 02:00: b-Hydroxybutyric mmol/L 1.3 11/28/24 03:08: POC Glucose 120 H 11/28/24 03:55: WBC 12.4 H, RBC 3.98 L, Hgb 11.5 L, Hct 34.0 L, MCV 85.4, MCH 28.9, MCHC 33.8, RDW Std Deviation 39.4, RDW Coeff of Marilynn 12.7, Plt Count 296, MPV 8.7, Immature Gran % (Auto) 0.300, Neut % (Auto) 82.4 H, Lymph % (Auto) 10.4 L, [place] % (Auto) 6.7, Eos % (Auto) 0.0, Baso % (Auto) 0.2, Absolute Neuts (auto) 10.3 H, Absolute Lymphs (auto) 1.29, Nucleated RBC % 0, Sodium 138, Potassium 2.9 L, Chloride 108, Carbon Dioxide 15.6 L, Anion Gap 14, BUN 7, Creatinine 0.45 L, Estim Creat Clear Calc 157.25, Est GFR (MDRD) Non-Af 136, BUN/Creatinine Ratio 16.4, Glucose 165 H, Hemoglobin A1c 12.4 H, Calcium 7.1 L, Magnesium 1.8, b-Hydroxybutyric mmol/L 2.9 11/28/24 03:58: POC Glucose 156 H 11/28/24 05:02: POC Glucose 144 H 11/28/24 05:58: POC Glucose 143 H ABG Data ABG results: ABG 11/27/24 13:25 Specimen Type LUIS Sample Site Not entered VBG pH 7.29 L VBG pO2 80 H VBG HCO3 12 L VBG Total CO2 12 L VBG O2 Sat (Calc) 95 H VBG Base Excess -15 L POC Mix VBG pCO2 Pt Tmp 24.2 L O2 Delivery Device Not entered Radiography Diagnostic Testing: Radiology Impression Chest X-Ray 11/27/24 13:39 IMPRESSION: No acute cardiopulmonary process. Reading Location: [facility] Physical Exam Const alert and no apparent distress HEENT head/scalp atraumatic and moist oral mucous membranes Resp normal respiratory effort, no retractions, no use of accessory muscles and clear to auscultation bilaterally Assessment & Plan Assessment/Plan (1) Diabetic ketoacidosis: QUALIFIERS: Diabetes mellitus complication detail: without coma D iabetes mellitus type: type 1 Qualified Code(s): E10.10 - Type 1 diabetes mellitus with ketoacidosis without coma (2) Insulin dependent type 1 diabetes mellitus: QUALIFIERS: Diabetes mellitus complication detail: without coma D iabetes mellitus complication status: with ketoacidosis Qualified Code(s): E 10.10 - Type 1 diabetes mellitus with ketoacidosis without coma PLAN: Plan DKA in setting of chronic type 1 diabetes * a1c 12.4, up from 11 * gap closed x 3. Will resume glargine and prandial insulin. DC insulin gtt. Start diet * Patient states that she was gone be running out of insulin so she was trying to stretch her insulin out. Was to have insulin prescribed in few days but had since run out. Hypokalemia * replace
[2024-11-28 08:27] LABS: Bedside Glucose 132 mg/dL (74-106)
[2024-11-28] MEDS: Insulin Glargine-YFGN 100 UNIT/ML Pen 20 UNIT SC (08:28)
[2024-11-28] MEDS: Potassium Chloride 10mEq/100mL 10 MEQ/100 ML IV.SOLN. 100 MEQ IV BOLUS ×2 (08:36→09:37)
[2024-11-28] MEDS: Potassium Chloride Oral Tablet 20 MEQ 60 MEQ PO (08:43)
[2024-11-28 09:27] LABS: Anion Gap 10 (5-15); BUN 5 mg/dL (4-19); BUN/Creat Ratio 11.1 RATIO (10-20); Calcium,Total 7.1 mg/dL (7.6-11.0); Carbon Dioxide 19.1 mmol/L (21.0-32.0); Chloride 106 mmol/L (98-108); Creatinine, Serum 0.46 mg/dL (0.70-1.20); EST Glomerular Filtration Rate 135 (>60); Estimated Creatinine Clearance 166.47 ml/min (50-250); Glucose 156 mg/dL (70-99); Potassium 2.9 mmol/L (3.3-5.1); Sodium Level 135 mmol/L (133-145)
[2024-11-28] MEDS: Insulin Lispro 100 UNIT/ML INSULN.PEN 15 UNIT SC ×2 (10:02→12:42)
[2024-11-28 11:40] LABS: Bedside Glucose 134 mg/dL (74-106)
[2024-11-28 12:30] LABS: Bedside Glucose 129 mg/dL (74-106)
[2024-11-28] MEDS: Pantoprazole Sodium 40 MG in 0.9% Normal Saline (100mL MB+) 100 ML 330 MG IV (12:36)
[2024-11-28] MEDS: 0.9 % NaCl (Sterile) Posiflush 10 mL IV (12:44)
--- NOTE | 2024-11-28 13:00 | DS.PCM_ITS ---
Providers Date of Admission: 11/27/24 Primary Care Physician: Minnie Hodge Reason For Visit: DKA Diagnosis Discharge Diagnosis (1) Diabetic ketoacidosis: Status: Resolved Code(s): E11.10 - Type 2 diabetes mellitus with ketoacidosis without coma Qualifiers: Diabetes mellitus type: type 1 Diabetes mellitus complication detail: w ithout coma Qualified Code(s): E10.10 - Type 1 diabetes mellitus with ketoacidosis without coma (2) Insulin dependent type 1 diabetes mellitus: Status: Inactive Code(s): E10.9 - Type 1 diabetes mellitus without complications Qualifiers: Diabetes mellitus complication status: with ketoacidosis Diabetes mellitus complication detail: without coma Qualified Code(s): E10.10 - Type 1 diabetes mellitus with ketoacidosis without coma Plan DKA in setting of chronic type 1 diabetes * a1c 12.4, up from 11 * gap closed x 3. Will resume glargine and prandial insulin. DC insulin gtt. Start diet * Patient states that she was gone be running out of insulin so she was trying to stretch her insulin out. Was to have insulin prescribed in few days but had since run out. Hypokalemia * replace Medications at Discharge Home Medications albuterol sulfate 90 mcg/actuation aerosol inhaler (Ventolin HFA) 2 puff inhalation Q4H PRN SHORTNES OF BREATH/WHEEZING 08/25/18 Ketone Urine Test (acetone (urine) test) #50 ea 11/05/21 fluticasone propionate 50 mcg/actuation nasal spray,suspension 2 spray intranasal DAILY NASAL CONGESTION 11/21/22 pen needle, diabetic 32 gauge x 5/32 (BD Ultra-Fine Opal Pen Needle) #120 ea 11/23/22 insulin lispro 100 unit/mL subcutaneous pen (Humalog KwikPen (U-100) Insulin) 15 unit (0.15 mL) subcut TIDAC type 1 DM #0 mL 05/14/24 insulin glargine 100 unit/mL (3 mL) subcutaneous pen (Basaglar KwikPen U-100 Insulin) 20 unit (0.2 mL) subcut DAILY type 1 DM #15 mL 11/28/24 Hospital Course Operations None Procedures None Summary of Care Provided Hospital Course: Patient presents with DKA. Patient was taking less insulin than she was really prescribed because she was running out and tried to stretch the insulin she had out. She states that she just needs insulin glargine for discharge does not need her mealtime insulin. Weight / BMI Weight Weight: 74 kg Body Mass Index (BMI) 32.8 ABG / Lab / Microbiology Data 11/28/24 03:55 11/28/24 08:25 Laboratory: Laboratory Results - last 24 hr 11/27/24 13:16: WBC 16.1 H, RBC 5.14, Hgb 14.9, Hct 44.4, MCV 86.4, MCH 29.0, MCHC 33.6, RDW Std Deviation 40.5, RDW Coeff of Marilynn 12.9, Plt Count 410, MPV 8.7, Immature Gran % (Auto) 0.400, Neut % (Auto) 91.3 H, Lymph % (Auto) 5.9 L, [place] % (Auto) 2.1, Eos % (Auto) 0.0, Baso % (Auto) 0.3, Absolute Neuts (auto) 14.7 H, Absolute Lymphs (auto) 0.94, Nucleated RBC % 0, Sodium 136, Potassium 3.6, Chloride 97 L, Carbon Dioxide 11.2 L, Anion Gap 28 H, BUN 16, Creatinine 0.82, Estim Creat Clear Calc 87.69, Est GFR (MDRD) Non-Af 102, BUN/Creatinine Ratio 20.1 H, Glucose 335 H, Calcium 10.0, b-Hydroxybutyric mmol/L 5.8 11/27/24 14:25: Urine Color Yellow, Urine Clarity Clear, Urine pH 5.0, Ur Specific [place] 1.025, Urine Protein 30 H, Urine Glucose (UA) 1000 H, Urine Ketones 150 A*, Urine Occult Blood 10 H, Urine Nitrite Negative, Urine Bilirubin Negative, Urine Urobilinogen Normal, Ur Leukocyte Esterase Negative, Urine RBC 0 SEEN, Urine WBC 0 SEEN, Ur Squamous Epith Cells 0-5 SEEN, Urine Bacteria 0 SEEN, Hyaline Casts 0-5 SEEN, Urine Mucus 0 SEEN, Urine Test Negative 11/27/24 15:21: POC Glucose 199 H 11/27/24 15:58: POC Glucose 181 H 11/27/24 16:10: Sodium 138, Potassium 3.7, Chloride 106, Carbon Dioxide 13.0 L, Anion Gap 20 H, BUN 15, Creatinine 0.68 L, Estim Creat Clear Calc 104.06, Est GFR (MDRD) Non-Af 123, BUN/Creatinine Ratio 21.8 H, Glucose 205 H, Calcium 8.3, Magnesium 2.0, TSH 3.740 11/27/24 17:09: POC Glucose 174 H 11/27/24 18:02: POC Glucose 155 H 11/27/24 19:02: POC Glucose 140 H 11/27/24 20:04: POC Glucose 126 H 11/27/24 20:10: Sodium 138, Potassium 3.4, Chloride 109 H, Carbon Dioxide 13.8 L , Anion Gap 15, BUN 12, Creatinine 0.59 L, Estim Creat Clear Calc 119.94, Est GFR (MDRD) Non-Af 128, BUN/Creatinine Ratio 20.3 H, Glucose 162 H, Calcium 7.5 L 11/27/24 21:08: POC Glucose 139 H 11/27/24 21:58: POC Glucose 187 H 11/27/24 23:13: POC Glucose 214 H 11/27/24 23:59: POC Glucose 190 H 11/28/24 00:40: Sodium 139, Potassium 3.0 L, Chloride 110 H, Carbon Dioxide 16.5 L, Anion Gap 12, BUN 9, Creatinine 0.52 L, Estim Creat Clear Calc 136.08, Est GFR (MDRD) Non-Af 131, BUN/Creatinine Ratio 17.4, Glucose 179 H, Calcium 7.3 L 11/28/24 01:07: POC Glucose 155 H 11/28/24 01:56: POC Glucose 126 H 11/28/24 02:00: b-Hydroxybutyric mmol/L 1.3 11/28/24 03:08: POC Glucose 120 H 11/28/24 03:55: WBC 12.4 H, RBC 3.98 L, Hgb 11.5 L, Hct 34.0 L, MCV 85.4, MCH 28.9, MCHC 33.8, RDW Std Deviation 39.4, RDW Coeff of Marilynn 12.7, Plt Count 296, MPV 8.7, Immature Gran % (Auto) 0.300, Neut % (Auto) 82.4 H, Lymph % (Auto) 10.4 L, [place] % (Auto) 6.7, Eos % (Auto) 0.0, Baso % (Auto) 0.2, Absolute Neuts (auto) 10.3 H, Absolute Lymphs (auto) 1.29, Nucleated RBC % 0, Sodium 138, Potassium 2.9 L, Chloride 108, Carbon Dioxide 15.6 L, Anion Gap 14, BUN 7, Creatinine 0.45 L, Estim Creat Clear Calc 157.25, Est GFR (MDRD) Non-Af 136, BUN/Creatinine Ratio 16.4, Glucose 165 H, Hemoglobin A1c 12.4 H, Calcium 7.1 L, Magnesium 1.8, b-Hydroxybutyric mmol/L 2.9 11/28/24 03:58: POC Glucose 156 H 11/28/24 05:02: POC Glucose 144 H 11/28/24 05:58: POC Glucose 143 H 11/28/24 07:28: POC Glucose 134 H 11/28/24 08:10: POC Glucose 132 H 11/28/24 08:25: Sodium 135, Potassium 2.9 L, Chloride 106, Carbon Dioxide 19.1 L , Anion Gap 10, BUN 5, Creatinine 0.46 L, Estim Creat Clear Calc 166.47, Est GFR (MDRD) Non-Af 135, BUN/Creatinine Ratio 11.1, Glucose 156 H, Calcium 7.1 L 11/28/24 12:12: POC Glucose 129 H ABG: ABG 11/27/24 13:25 Specimen Type LUIS Sample Site Not entered VBG pH 7.29 L VBG pO2 80 H VBG HCO3 12 L VBG Total CO2 12 L VBG O2 Sat (Calc) 95 H VBG Base Excess -15 L POC Mix VBG pCO2 Pt Tmp 24.2 L O2 Delivery Device Not entered Radiography Diagnostic Testing: Radiology Impression Chest X-Ray 11/27/24 13:39 IMPRESSION: No acute cardiopulmonary process. Reading Location: [facility] D/C Instructions Discharge Diet: 2000 Calorie Control Diet DC O2, CPAP, BIPAP Needs Home O2 Discharge instructions: No Meaningful Use Info Meaningful Use Meaningful Use Diagnoses (Choose all that apply): None applicable Ischemic Stroke Statin Dosing Therapy Reference: STATIN DOSE THERAPY REFERENCE: * Patients > 75 years receive moderate or high dose statin therapy. * Patients 75 years or YOUNGER should receive HIGH intensity statin dose unless contraindicated. You will be required to document reason for non-treatment if statin daily dose does not meet guidelines. HIGH DOSE STATIN THERAPY DAILY Atorvastatin > than or = to 40 mg Rosuvastatin > than or = to 20 mg Amlodipine + Atorvastatin > than or = to 2.5/40 mg Ezetimibe + Simvastatin 10/80 mg Simvastatin 80mg Discharge Plan Admission Admit Date/Time: 11/27/24 15:42 Primary Reason for Your Visit: Diabetic ketoacidosis Attending Provider: Damien Villagran Primary Care Provider: Minnie Hodge Consulting Providers: Zaida Hoff Discharge Orders/Prescriptions Prescriptions: Continued albuterol sulfate [Ventolin HFA] 18 GM HFA aerosol inhaler 2 puff inhalation Q4H PRN (Reason: SHORTNES OF BREATH/WHEEZING) fluticasone propionate 50 mcg/actuation spray,suspension 2 spray INTRANASAL DAILY (DME) pen needle, diabetic [BD Ultra-Fine Opal Pen Needle] 32 gauge x 5/32 needle See Rx Instructions .ROUTE .MEDSUPPLY Qty: 120 5RF Rx Instructions: 4 times daily insulin lispro [Humalog KwikPen Insulin] 100 unit/mL Insulin Pen 15 unit subcut TIDAC Qty: 0 0RF insulin glargine [Basaglar KwikPen U-100 Insulin] 100 unit/mL (3 mL) insulin pen 20 unit subcut DAILY Qty: 15 1RF (DME) Ketone Urine Test Strip See Rx Instructions .ROUTE .MEDSUPPLY Qty: 50 1RF Rx Instructions: once/day Discontinued (DME) Dexcom G6 Sensor Device See Rx Instructions .Route Qty: 9 0RF Rx Instructions: 1 sensor q 10 days (DME) Dexcom G6 Transmitter Device See Rx Instructions .Route Qty: 1 0RF Rx Instructions: As directed Referrals / Follow Up: [facility] [Provider Group] - Within 1 Month Minnie Hodge [Primary Care Provider] - Within 2 Weeks Disposition Disposition (needs filled in before D/C Order can be placed): Home, Self Care Charges/Coding Visit Charges Inpatient E&M: 37446 Disch Hosp
== END 2024-11-28 15:15 | disposition home or self-care (01) | DRG 639 ==
LOC: ED 14:41 → ICU 11-28 07:07
PROVIDERS: Internal Medicine; Admitting Provider Internal Medicine; Emergency Provider Emergency Medicine; Referring Provider Internal Medicine
DX: E10.10 Type 1 diabetes mellitus with ketoacidosis without coma (principal); Z79.4 Long term (current) use of insulin; E87.6 Hypokalemia; J45.909 Unspecified asthma, uncomplicated; Z79.51 Long term (current) use of inhaled steroids; Z96.41 Presence of insulin pump (external) (internal); F17.290 Nicotine dependence, other tobacco product, uncomplicated
CPT/HCPCS: 71046; 80048; 81001; 81025; 82010; 82803; 82962; 83036; 83735; 84443; 85025; 93005; 96361; 96365; 96375; 99221; 99285; A4216; G0378; J2405

== ENCOUNTER 2025-01-22 17:47 | Emergency (ER) | payer BC, MEDICAID, SELFPAY ==
[2025-01-22 17:48] VITALS: BP 123/78; PULSE 89; RESP 14; TEMP 36.2; O2SAT 98; BMI 31.3
--- OUTSIDE RECORDS SUMMARY | 2025-01-22 18:17 | XMS RPT_ITS | CCD ---
Author Organization [facility] Care Team Providers Care Cinder Crane Operator Name Role Phone Citlali Levy MD Unavailable [phone] Radha Sterling NP Unavailable Rose Lieberman Unavailable Unavailab amaya Cardenas FARM MANAGEMENT TEACHER, Bhumika Engle Unavailable Arti Cassidy Unavailable Unavailable Arti Cassidy Unavailable Unavailable Radha Sterling NP Unavailable Citlali Levy MD Unavailable [phone] Rose Lieberman Unavailable Unavailab CINDY Martin MD Attending Unavailable CINDY MANLEY MD Primary Care Unavailable CINDY MANLEY MD Admitting Unavailable Dr. Erika Sen Primary Care Provider Dr. Erika Sen Referring Provider Dr. Pj Chow Attending Provider DONOVAN Wang Attending Provider Juan Carlos Candelario MD Primary Care Provider Dr. Erika Sen Primary Care Provider Dr. Erika Sen Referring Provider Dr. Pj Chow Attending Provider Dr. Lance Ruiz Emergency Provider Dr. Delia Navarro Admit Provider Dr. Delia Navarro Other Provider Dr. Jackeline Akhtar Attending Provider Unavailable Dr. Jackeline Akhtar Other Provider Unavailable Juan Carlos Candelario MD Primary Care Provider Dr. Erika Sen Primary Care Provider Dr. Danitza Canada Emergency Provider Dr. Antonio Vaca Admit Provider Dr. Antonio Vaca Other Provider Carol, Dr. Bianca Nicholson Referring Provider Carol, Dr. Bianca Nicholson Other Provider Dr. Valerio Garza Other Provider Dr. Chris Walker Other Provider Dr. Rafat Cooney Attending Provider Dr. Rafat Cooney Other Provider Dr. Jesu Bob Other Provider Unavailab Catalan FARM MANAGEMENT TEACHER, FARM MANAGEMENT TEACHER-C Chiquita Other Provider Dr. Antonio Vaca Referring Provider Carol, Dr. Bianca Nicholson Attending Provider Dr. Erika Sen Referring Provider Felipe, VERONICA-C Indira Attending Provider Dr. Juan Carlos Mcgregor Emergency Provider Dr. Jackeline Akhtar Admit Provider Unavailable Dr. Erika Sen Primary Care Provider Dr. Lance Ruiz Emergency Provider Dr. Delia Navarro Admit Provider Dr. Delia Navarro Other Provider Dr. Jackeline Akhtar Attending Provider Unavailable Dr. Jackeline Akhtar Other Provider Unavailable Dr. Danitza Canada Emergency Provider Dr. Antonio Vacait Provider Dr. Antonio Vaca Other Provider Carol, Dr. Bianca Nicholson Referring Provider Carol, Dr. Bianca Nicholson Other Provider Dr. Valerio Garza Other Provider Dr. Chris Walker Other Provider Dr. Rafat Cooney Attending Provider Dr. Rafat Cooney Other Provider Dr. Jesu Bob Other Provider Unavailab amaya Long FARM MANAGEMENT TEACHER, FARM MANAGEMENT TEACHER-C Chiquita Other Provider Dr. Antonio Vaca Referring Provider Dr. Bianca Medina Attending Provider Dr. Erika Sen Referring Provider DONOVAN Wang Attending Provider Dr. Juan Carlos Mcgregor Emergency Provider Dr. Jackeline Akhtar Admit Provider Unavailable Dr. Nathan Pineda Attending Provider Dr. Nathan Pineda Other Provider Dr. Kaylen Morin Emergency Provider Minnie Hodge Primary Care Provider Unav ailable Dr. Uziel Mahmood Admit Provider Dr. Uziel Mahmood Attending Provider Dr. Uziel Mahmood Other Provider Dr. Diego Haas Attending Provider Dr. Diego Haas Other Provider Minnie Hodge Primary Care Provider Unav ailable Minnie Hodge Referring Provider Unavail able DONOVAN Wang Attending Provider Minnie Hodge Primary Care Provider Unav ailable Minnie Hodge Referring Provider Unavail able DONOVAN Wang Attending Provider Dr. Kassy Rosales Emergency Provider Dr. Damien Villagran Attending Provider Dr. Damien Villagran Admit Provider Dr. Damien Villagran Other Provider Dr. Nathan Pineda Attending Provider Dr. Nathan Pineda Other Provider Dr. Sunil Mina Emergency Provider Dr. Jackeline Rowe Attending Provider Unavail able Rowe, Dr. Hernandez Admit Provider Unavailabl e Rowe, Dr. Hernandez Other Provider Unavailabl e Dr. Emery Calle Other Provider MATEO Lagos Attending Provider DONOVAN Parks Attending Provider Juan Carlos Candelario MD Primary Care Provider Juan Carlos Candelario MD Primary Care Provider Johanny STOCK CONTROLLER.CHANGER FIXER, Yamini Unavailable Naveen GALINDO, Chasity Unavailable KODAK, JUAN CARLOS A Primary Care Unavailable HODGE, CHASITY Referring Unavailable KODAK, JUAN CARLOS A Primary Care Unavailable HODGE, CHASITY Referring Unavailable KODAK, JUAN CARLOS A Primary Care Unavailable NAVEEN, CHASITY Attending Unavailable HODGE, CHASITY Referring Unavailable VERONIKA DORADO Attending Unavailable KODAK, JUAN CARLOS A Primary Care Unavailable EVELYN CARR Attending Unavailable NAVEEN, CHASITY Referring Unavailable KODAK, JUAN CARLOS A Primary Care Unavailable EVELYN CARR Attending Unavailable EVELYN CARR Referring Unavailable KODAK, JUAN CARLOS A Primary Care Unavailable KODAK, JUAN CARLOS A Primary Care Unavailable ROSA ISELA GONZALEZ Referring Unavailable KODAK, JUAN CARLOS A Primary Care Unavailable KODAK, JUAN CARLOS A Primary Care Unavailable KODAK, JUAN CARLOS A Primary Care Unavailable KODAK, JUAN CARLOS A Primary Care Unavailable KODAK, JUAN CARLOS A Primary Care Unavailable HODGE, CHASITY Attending Unavailable HODGE, CHASITY Referring Unavailable KODAK, JUAN CARLOS A Primary Care Unavailable Minnie Hodge Primary Care Provider Unav ailable Minnie Hodge Referring Provider Unavail able Livia MAN, Maddy Attending Provider Dr. Danitza Canada DO Emergency Provider [phone] Nancie CHENG, Dr. Bosch Attending Provider Emil Overton CNM Attending Provider [phone] Maco CHENG, Dr. Quezada Emergency Provider [phone] Taz AGOSTO, Dr. Jean Emergency Provider Luis Eduardo AGOSTO, Dr. Cerda Admit Provider Luis Eduardo AGOSTO, Dr. Cerda Attending Provider Luis Eduardo AGOSTO, Dr. Cerda Referring Provider Taz AGOSTO, Dr. Jean Emergency Provider Luis Eduardo AGOSTO, Dr. Cerda Admit Provider Luis Eduardo AGOSTO, Dr. Cerda Referring Provider Luis Eduardo AGOSTO, Dr. Cerda Other Provider Tyshawn CHENG, Dr. Quezada Attending Provider Tyshawn CHENG, Dr. Quezada Other Provider Minnie Hodge Primary Care Unavailabl e Jackeline Rowe Consulting Unavailable Jackeline Rowe Admitting Unavailable Damien Villagran Attending Unavailable Deepika Villagranic Consulting Unavailable Minnie Hodge Primary Care Unavailabl e Luis Eduardo, Zaida Referring Unavailable Zaida Hoff Attending Unavailable Zaida Hoff Consulting Unavailable Zaida Hoff Admitting Unavailable Damien Villagran Attending Unavailable Damien Villagran Consulting Unavailable Minnie Hodge Primary Care Unavailabl e Minnie Hodge Referring Unavailbritany e Emil Overton Attending Unavailable Minnie Hodge Primary Care Unavailabl e Damien Dewey Attending Unavailable Minnie Hodge Primary Care Unavailabl e Danitza Canada Attending Unavailable Rony Delgadillo Attending Unavailabl e Minnie Hodge Primary Care Unavailabl e Minnie Hodge Primary Care Unavailabl e Jackeline Rowe Consulting Unavailable Jackeline Rowe Admitting Unavailable Damien Villagran Attending Unavailable Damien Villagran Attending Unavailable Minnie Hodge Primary Care Unavailabl e Hoff, Zaida Referring Unavailable Hoff, Zaida Consulting Unavailable Hoff, Zaida Admitting Unavailable Minnie Hodge Referring UnavailMinnie Montoya Primary Care UnavailMaddy Celis Attending Unavailable Jackeline Rowe Attending Unavailable Allergies Allergy Classification Reported Allergen(s) Allergy Type Date of Onset Reaction(s) Facility Melatonin (3 sources) Melatonin Drug Allergy 06-07-20 21 Diarrhea [facility] Penicillins (antibiotic) (3 sources) Penicillins Drug Allergy 12-31-19 12 Rash [facility] Sulfamethoxazole / Trimethoprim (3 sources) Sulfamethoxazole / Trimethoprim Drug Allergy 12-31-19 12 Vomiting [facility] (10 sources) apis mellifera venom; Translations: [BEE STINGS] allergy to substance 04-02-20 17 Anaphylaxis [facility] Work Phone: (18 sources) Egg drug allergy 01-03-20 17 rash [facility] Work Phone: (18 sources) ibuprofen drug allergy 01-03-20 17 rash [facility] Work Phone: (18 sources) Sulfonamides (Antibiotic) drug allergy 01-03-20 17 [facility] Work Phone: (20 sources) Penicillins; Translations: [PENICILLINS] Allergy to substance 12-31-[address] [facility] (20 sources) predniSONE; Translations: [PREDNISONE] Drug Allergy 05-12-20 19 Vomiting [facility] (20 sources) Sulfonamides (Antibiotic); Translations: [Sulfa (Sulfonamide Antibiotics)] Allergy to substance 11-08-19 22 Unknown [facility] (20 sources) Melatonin; Translations: [MELATONIN] Drug Allergy 06-07-20 21 Diarrhea [facility] (20 sources) Sulfamethoxazole / Trimethoprim; Translations: [SULFATRIM DS] Drug Allergy 12-31-19 12 Vomiting [facility] (20 sources) bee venom protein (honey bee); Translations: [BEE VENOM PROTEIN (HONEY BEE)] Allergy to substance 07-23-19 Anaphylaxis [facility] (1 source) predniSONE Drug Allergy 11-28-19 [facility] Repository (1 source) bee venom protein (honey bee) Drug allergy (disorder) 11-28-19 25 [facility] Repository Medications Current Medications Medication Drug Class(es) Dates Sig (Normalized) Sig (Original) [id number] 200 actuat albuterol 0.09 mg/actuat metered dose inhaler (20 sources) beta2-Adrenergic Agonist Start: 03-01-2019 End: 06-07-2021 take 2 puff(s) by inhalation every four hours as needed albuterol HFA (VENTOLIN HFA) 90 mcg/actuation inhaler Indications: Mild intermittent asthma without complication (HCC) Inhale 2 Puffs as instructed every 4 hours as needed. 18 g 06/07/2021 Active Start: 08-25-2018 take 1 puff(s) by in halation every four hours as needed Albuterol Sulfate (Ventolin Hfa) 18 GM HFA aerosol inhaler Active 2 PUFF INHALATION EVERY 4 HOURS NEEDED August 25, 2018 2:49pm Start: 08-25-2018 Albuterol Sulf ate (Ventolin Hfa) 18 GM HFA aerosol inhaler Active 2 NMA INHALATION Q4H as needed for SHORTNES OF BREATH/WHEEZING August 25, 2018 1:00am Start: 08-25-2018 take 1 puff(s) by in halation every four hours Albuterol Sulfate (Ventolin Hfa) 18 GM HFA aerosol inhaler Active 2 PUFF INHALATION Q4H August 25, 2018 12:00am Start: 08-25-2018 take 1 puff(s) by in halation every four hours Albuterol Sulfate (Ventolin Hfa) 18 GM HFA aerosol inhaler Active 2 PUFF INHALATION Q4H August 25, 2018 1:00am Start: 08-25-2018 take 1 puff(s) by in halation every four hours as needed Albuterol Sulfate (Ventolin Hfa) 18 GM HFA aerosol inhaler Active 2 PUFF INHALATION EVERY 4 HOURS NEEDED August 25, 2018 1:00am Start: 08-25-2018 take 1 puff(s) by in halation every four hours as needed Albuterol Sulfate (Ventolin Hfa) 18 GM HFA aerosol inhaler Active 2 PUFF INHALATION EVERY 4 HOURS NEEDED August 25, 2018 12:00am Start: 02-20-2017 VENTOLIN HFA 1 08 (90 Base) MCG/ACT AERS ALBUTEROL SULFATE [id number] Bhumika Cardenas NP Start: 01-02-2017 VENTOLIN HFA 1 08 (90 Base) MCG/ACT AERS ALBUTEROL SULFATE [id number] Bhumika Cardenas FARM MANAGEMENT TEACHER Start: 01-02-2017 VENTOLIN HFA 1 08 (90 Base) MCG/ACT AERS as needed ALBUTEROL SULFATE [id number] Ana Burnette Comment on above: Inhale 2 Puffs as in structed every 4 hours as needed. amoxicillin 875 mg / clavulanate 125 mg oral tablet (9 sources) Penicillin-class Antibacterial Start: End: take 1 tablet by mouth twice daily amoxicillin-clavul anate potassium (AUGMENTIN) 875-125 mg per tablet Indications: Bacterial sinusitis Take 1 tablet by mouth two times a day for 7 days. 14 tablet 08/18/2024 08/25/2024 Active Start: 11-11-2023 End: 11-28-2023 Amoxicillin-Pot Clavulanate 875-125 mg tablet Discontinued 1 {tbl} PO TWICE A DAY 14 November 11, 2023 12:00am November 28, 2023 1:59pm Start: 11-11-2023 End: 11-28-2023 take 1 tablet by mouth twice daily Amoxicillin-Pot Clavulanate Discontinued 1 TABLET PO TWICE A DAY 14 November 11, 2023 12:00am November 28, 2023 1:59pm ciprofloxacin 500 mg oral tablet (1 source) Quinolone Antimicrobial Start: 11-23-2022 take 1 tablet by mouth twice daily Ciprofloxacin Hcl (Cipro) 500 mg tablet Active 500 MG PO TWICE A DAY November 23, 2022 12:00am cyclobenzaprine hydrochloride 10 mg oral tablet (19 sources) Muscle Relaxant Start: 03-25-2024 End: 03-30-2024 take 1 tablet by mouth every twelve hours as needed for pain and pain cyclobenzaprine (FLEXERIL) 10 mg tablet Indications: Pain Take 1 tablet by mouth two times a day as needed for muscle spasm for up to 5 days. 10 tablet 03/25/2024 03/30/2024 Active Start: 06-12-2021 End: 12-24-2023 take 1 tablet by mouth three times daily as needed for muscle spasms cyclobenzaprine (FLEXERIL) 10 mg tablet Indications: Acute midline low back pain without sciatica Take 1 tablet by mouth three times daily as needed for muscle spasm. 15 tablet 0 12/26/2021 12/24/2023 Discontinued Comment on above: Take 1 tablet by edgar th at bedtime as needed for muscle spasm. Take 1 tablet by edgar th three times daily as needed for muscle spasm. DEXCOM G6 SENSOR cooper (20 sources) Start: 09-27-2022 DEXCOM G6 SENSOR cooper as directed. 09/27/2022 Active Start: 09-27-2022 DEXCOM G6 SENS OR cooper as directed. 0 09/27/2022 Active Comment on above: as directed. DEXCOM G6 TRANSMITTER cooper (20 sources) Start: 09-27-2022 DEXCOM G6 TRANSMITTER cooper as directed. 09/27/2022 Active Start: 09-27-2022 DEXCOM G6 PARIKH SMITTER cooper as directed. 0 09/27/2022 Active Comment on above: as directed. etonogestrel 68 mg drug implant (20 sources) Progestin Start: 03-10-2024 End: 03-10-2027 etonogestrel (NEXPLANON) subdermal implant 68 mg Indications: Insertion of implantable subdermal contraceptive 1 Each by SUBDERMAL route as directed. 1 Each 03/10/2024 03/10/2027 Active Start: 04-13-2020 End: 12-24-2023 etonogestrel (NEXPLANON) sub dermal implant 68 mg Indications: Insertion of implantable subdermal contraceptive 1 Each by SUBDERMAL route as directed. 1 Each 04/13/2020 12/24/2023 Discontinued Start: 04-17-2017 etonogestrel ( NEXPLANON) subdermal implant 68 mg ONCE 04/17/2017 Active Start: 04-17-2017 NEXPLANON 68 M G IMPL ETONOGESTREL [id number] Therese Da Silva Comment on above: 1 Each by SUBDERMAL route as directed. ONCE fluticasone propionate 0.05 mg/actuat metered dose nasal spray (20 sources) Corticosteroid Start: 11-21-2022 Fluticasone Propionate 50 mcg/actuation spray,suspension Active 2 NMA INTRANASAL DAILY November 21, 2022 12:00am Start: 11-21-2022 Fluticasone Pr opionate Active 2 SPRAY INTRANASAL DAILY November 21, 2022 12:00am Start: 11-21-2022 Start: 10-16-2022 take 2 spray(s) by jose enrique viviennetab once daily fluticasone (FLONASE) 50 mcg/actuation nasal spray Indications: Bacterial sinusitis Use 2 Sprays in each nostril once daily. Rinse mouth after use. 1 Each 08/18/2024 Active Comment on above: Use 2 Sprays in each nostril once daily. Rinse mouth after use. Inhalational Spacing Device (AEROCHAMBER MASK LARGE) spcr (20 sources) Start: 01-06-2015 Inhalational Spacing Device (AEROCHAMBER MASK LARGE) spcr 1 Device as needed. 1 Each 0 01/06/2015 Active Comment on above: 1 Device as needed. 3 ml insulin glargine 100 unt/ml pen injector (20 sources) Insulin Analog Start: 11-27-2024 End: 11-28-2024 Insulin Glargine (Basaglar Kwikpen U-100 Insulin) 100 unit/mL (3 mL) insulin pen Active 20 U SC DAILY November 28, 2024 1:07pm Start: 11-27-2024 Insulin Glargi ne (Insulin Glargine 100 Unit/Ml (3 Ml) Subcutaneous Pen) 100 unit/mL (3 mL) insulin pen Active 20 U SC DAILY November 27, 2024 12:00am Start: 04-14-2024 End: 11-04-2024 insulin glargine (BASAGLAR K WIKPEN U-100 INSULIN) 100 unit/mL (3 mL) Indications: Diabetes mellitus type 1, controlled, without complications (HCC) Inject 20 units daily 18 mL 3 11/04/2024 Active Start: 03-01-2023 End: 10-17-2023 Insulin Glargine (Basaglar K wikpen U-100 Insulin) 100 unit/mL (3 mL) insulin pen Discontinued 20 U SC AT BEDTIME March 01, 2023 12:00am October 17, 2023 2:28pm Start: 11-23-2022 End: 04-14-2024 insulin glargine 100 unit/mL (3 mL) 15 Units. 11/23/2022 04/14/2024 Discontinued Start: 11-23-2022 End: 03-01-2023 Insulin Glargine (Basaglar K wikpen U-100 Insulin) 100 unit/mL (3 mL) insulin pen Discontinued 15 U SC TWICE A DAY November 23, 2022 12:00am March 01, 2023 11:21pm Start: 05-08-2021 End: 08-09-2021 Insulin Glargine (Lantus Juanita ostar U-100 Insulin) 100 unit/mL (3 mL) insulin pen Discontinued 26 U SC AT BEDTIME 7.8 May 08, 2021 11:12am August 09, 2021 11:49am Start: 03-22-2021 End: 05-08-2021 Insulin Glargine (Lantus Juanita ostar U-100 Insulin) 100 unit/mL (3 mL) insulin pen Discontinued 20 U SC TWICE A DAY 07 19March 22, 2021 12:00am May 08, 2021 11:15am Start: 05-29-2020 End: 03-22-2021 Insulin Glargine 100 unit/mL (3 mL) insulin pen Discontinued 40 U SC DAILY May 29, 2020 2:28pm March 22, 2021 10:31am Start: 03-16-2020 End: 05-29-2020 Insulin Glargine (Basaglar K wikpen U-100 Insulin) 100 unit/mL (3 mL) insulin pen Discontinued 30 U SC DAILY May 19, 2020 3:02pm May 29, 2020 2:28pm Start: 03-16-2020 End: 12-24-2023 insulin glargine (BASAGLAR K WIKPEN U-100 INSULIN) 100 unit/mL (3 mL) Indications: Type 1 diabetes mellitus without complication (HCC) Inject 45 Units subcutaneously daily at bedtime. Per Endo: Dr. Chow 0 05/20/2021 12/24/2023 Discontinued Start: 03-01-2020 End: 08-03-2020 BASAGLAR KWIKPEN U-100 INSUL IN 100 unit/mL (3 mL) Indications: Type 1 diabetes mellitus without complication (HCC) inject 45 units subcutaneously twice a day 30 mL 03/01/2020 08/03/2020 Discontinued Start: 11-10-2019 End: 02-01-2020 Insulin Glargine 100 UNIT/ML insulin pen Discontinued 75 U SC AT BEDTIME November 10, 2019 12:01pm February 01, 2020 11:30am Start: 07-04-2018 End: 08-17-2018 Insulin Glargine 100 UNITS/M L insulin pen Discontinued 40 U SC TWICE A DAY 1 July 04, 2018 1:00am August 17, 2018 3:38pm Start: 07-04-2018 End: 11-10-2019 Insulin Glargine 100 unit/mL (3 mL) insulin pen Discontinued 40 U SC TWICE A DAY August 18, 2018 8:43am August 20, 2018 12:15pm Start: 07-04-2018 End: 02-01-2020 Start: 10-07-2017 End: 10-16-2017 Insulin Glargine (Basaglar K wikpen U-100 Insulin) 100 unit/mL (3 mL) insulin pen Discontinued 40 U SC TWICE A DAY October 13, 2017 9:34am October 16, 2017 4:56pm Start: 10-07-2017 End: 10-16-2017 Comment on above: Inject 45 Units subc utaneously daily at bedtime. Per Endo: Dr. Chow 3 ml insulin lispro 100 unt/ml pen injector (20 sources) Insulin Analog Start: 05-14-2024 Insulin Lispro (Humalog Kwikpen Insulin) 100 unit/mL Insulin Pen Active 15 U SC THREE TIMES DAILY BEFORE MEALS 0 May 14, 2024 12:00am Start: 12-31-2023 End: 04-14-2024 inject 100 [IU] by subcutaneous injection once daily insulin lispro 100 unit/mL injection INJECT 100 UNITS SUBCUTANEOUSLY EVERY DAY 12/31/2023 04/14/2024 Discontinued Start: 12-30-2023 End: 05-14-2024 Insulin Lispro (Humalog U-10 0 Insulin) 100 unit/mL solution Discontinued 100 U SC DAILY December 30, 2023 12:00am May 14, 2024 9:46am Start: 03-23-2019 End: 08-03-2020 Insulin Lispro 100 UNIT/ML i nsulin pen Discontinued 0 U SQ THREE TIMES A DAY November 10, 2019 12:00am February 01, 2020 11:32am 15U per 50 carbs SC TID Insulin Pump Cartridge (Omni pod Dash Insulin Pod) cartridge (17 sources) Start: 08-09-2021 Insulin Pump C artridge (Omnipod Dash Insulin Pod) cartridge Active 0 .ROUTE .MEDSUPPLY August 09, 2021 11:34am As directed Start: 08-09-2021 End: 09-26-2022 Insulin Pump Cartridge (Omni pod Dash Insulin Pod) cartridge Discontinued 0 .ROUTE .MEDSUPPLY August 09, 2021 12:00am September 26, 2022 4:08pm As directed Start: 08-09-2021 End: 09-26-2022 Insulin Pump Cartridge (Omni pod Dash Insulin Pod) cartridge Discontinued 0 .ROUTE .MEDSUPPLY August 09, 2021 1:00am September 26, 2022 5:08pm As directed Start: 08-09-2021 Insulin Pump C artridge (Omnipod Dash Insulin Pod) cartridge Active 0 .ROUTE .MEDSUPPLY August 09, 2021 12:00am As directed 3 ml insulin aspart, human 100 unt/ml pen injector (20 sources) Insulin Analog Start: 04-14-2024 insulin aspart U-100 (NOVOLOG FLEXPEN U-100 INSULIN) 100 unit/mL (3 mL) Inject subcutaneously. Inject 15 units with meals and sliding scale as needed TDD 60 units 54 mL 3 04/14/2024 Active Start: 11-10-2023 End: 12-30-2023 Insulin Aspart U-100 100 uni t/mL solution Discontinued 100 U SC ONCE 90 November 10, 2023 12:00am December 30, 2023 12:03pm Start: 05-12-2023 End: 10-17-2023 Insulin Aspart U-100 (Novolo g Flexpen U-100 Insulin) 100 unit/mL (3 mL) insulin pen Discontinued 15 U SC THREE TIMES A DAY 40.5 June 05, 2023 12:16pm October 17, 2023 2:28pm Start: 03-28-2023 End: 05-12-2023 Insulin Aspart U-100 (Novolo g Flexpen U-100 Insulin) 100 unit/mL (3 mL) insulin pen Discontinued 10 U SC THREE TIMES A DAY 15 March 28, 2023 12:04pm May 12, 2023 2:14pm Start: 03-01-2023 End: 03-28-2023 Insulin Aspart U-100 (Novolo g Flexpen U-100 Insulin) 100 unit/mL (3 mL) insulin pen Discontinued 15 U SC THREE TIMES A DAY March 01, 2023 12:00am March 28, 2023 12:05pm Start: 01-13-2023 End: 03-01-2023 Insulin Aspart U-100 (Novolo g Flexpen U-100 Insulin) 100 unit/mL (3 mL) insulin pen Discontinued 20 U SC THREE TIMES A DAY January 13, 2023 12:33pm March 01, 2023 11:21pm Start: 11-23-2022 End: 01-13-2023 Insulin Aspart U-100 (Novolo g Flexpen U-100 Insulin) 100 unit/mL (3 mL) insulin pen Discontinued 5 U SC THREE TIMES A DAY January 06, 2023 4:54pm January 13, 2023 12:34pm Start: 07-26-2022 End: 12-24-2023 NOVOLOG U-100 INSULIN ASPART 100 unit/mL use up to 100 units VIA INSULIN PUMP 0 07/26/2022 12/24/2023 Discontinued Start: 05-08-2021 End: 04-14-2024 Insulin Aspart U-100 100 uni t/mL solution Discontinued 100 U continuous subcutaneous infusion .continuous 90 July 25, 2022 3:38pm September 26, 2022 5:11pm Start: 05-08-2021 End: 02-17-2023 Start: 03-28-2021 End: 08-09-2021 Insulin Aspart U-100 100 uni t/mL (3 mL) insulin pen Discontinued 30 U SC THREE TIMES A DAY March 28, 2021 11:43am August 09, 2021 11:49am SSI 180-220; 221-260+4; 261-300+5; >300+6 MDD- 80u/day Start: 05-29-2020 End: 03-28-2021 Insulin Aspart U-100 100 uni t/mL (3 mL) insulin pen Discontinued 18 U SC THREE TIMES A DAY May 29, 2020 2:28pm March 28, 2021 11:46am Start: 03-01-2020 End: 03-30-2021 inject 15 [IU] by subcutaneous injection three times daily insulin aspart U-100 (NOVOLOG) 100 unit/mL (3 mL) inject 15 units subcutaneously three times a day 03/01/2020 03/30/2021 Discontinued Start: 02-01-2020 End: 05-29-2020 Insulin Aspart U-100 (Novolo g Flexpen U-100 Insulin) 100 unit/mL (3 mL) insulin pen Discontinued 15 U SC THREE TIMES A DAY May 19, 2020 3:02pm May 29, 2020 2:28pm Start: 02-01-2020 End: 12-24-2023 inject 30 [IU] by subcutaneous injection three times daily before mealtime insulin aspart U-100 (NOVOLOG) 100 unit/mL (3 mL) Inject 30 Units subcutaneously three times daily before meals. Per Dr. Geraldo Escobar 0 03/30/2021 12/24/2023 Discontinued Start: 07-03-2017 End: 11-24-2017 Insulin Aspart U-100 (Novolo g Flexpen U-100 Insulin) 100 unit/mL insulin pen Discontinued 15 U SC THREE TIMES A DAY July 03, 2017 1:00am November 24, 2017 9:22am Start: 02-20-2017 NOVOLOG FLEXPE N 100 UNIT/ML SOPN INSULIN ASPART [id number] Bhumika S Sullivan FARM MANAGEMENT TEACHER Start: 02-20-2017 NOVOLOG FLEXPE N 100 UNIT/ML SOPN INSULIN ASPART [id number] Bhumika S Theresa FARM MANAGEMENT TEACHER Start: 02-20-2017 NOVOLOG FLEXPE N 100 UNIT/ML SOPN INSULIN ASPART [id number] Bhumika S Theresa FARM MANAGEMENT TEACHER Start: 01-02-2017 NOVOLOG 100 UN IT/ML SOLN 15 units INSULIN ASPART [id number] Ana Burnette Start: 01-02-2017 NOVOLOG 100 UN IT/ML SOLN 15 units INSULIN ASPART [id number] Ana Burnette Start: 07-05-2015 End: 08-25-2018 Insulin Aspart U-100 (Novolo g Flexpen U-100 Insulin) 100 unit/mL insulin pen Discontinued 0 SC THREE TIMES A DAY 120 November 24, 2017 10:28am August 20, 2018 12:26pm 15U per 50 carbs SC TID Start: 07-05-2015 End: 07-03-2017 Insulin Aspart U-100 100 UNI TS/ML insulin pen Discontinued 0 U SC 3 TIMES DAILY WITH MEALS July 05, 2015 1:00am July 03, 2017 11:44am Comment on above: Inject 30 Units subc utaneously three times daily before meals. Per Dr. Geraldo Escobar use up to 100 units VIA INSULIN PUMP isopropyl alcohol 0.7 ml/ml medicated pad (20 sources) Start: 04-08-20 16 Alcohol Swabs (ALCOHOL PREP PADS) padm Apply 1 application to affected area every 4 hours as needed (blood glucose check). 300 Each 11 04/08/2016 Active Comment on above: Apply 1 application to affected area every 4 hours as needed (blood glucose check). methylPREDNISolone (2 sources) Corticosteroid Start: 12-27-19 End: 01-02-20 methylPREDNISolone (MEDROL, REBA,) 4 mg Dose-Pack Indications: Acute midline low back pain without sciatica Follow dosing instructions, take with food. 1 Package 0 12/26/2021 01/01/2022 Active Comment on above: Follow dosing instru ctions, take with food. OMNIPOD 5 G6 PODS, GEN 5, crtg (20 sources) Start: 04-01-20 24 OMNIPOD 5 G6 PODS, GEN 5, crtg CHANGE EVERY 48 HOURS 45 Each 3 04/01/2024 Active Start: 12-25-2023 End: 04-01-2024 OMNIPOD 5 G6 PODS, GEN 5, cr tg CHANGE EVERY 48-72 HOURS 12/25/2023 04/01/2024 Discontinued Start: 12-25-2023 OMNIPOD 5 G6 P ODS, GEN 5, crtg CHANGE EVERY 48-72 HOURS 12/25/2023 Active Start: 12-25-2023 OMNIPOD 5 G6 P ODS, GEN 5, crtg CHANGE EVERY 48-72 HOURS 0 12/25/2023 Active ondansetron 4 mg disintegrating oral tablet (20 sources) Serotonin-3 Receptor Antagonist Start: 05-07-2024 End: 05-14-2024 take 1 tablet by mouth every six hours as needed for nausea ondansetron orally disintegrating (ZOFRAN ODT) 4 mg disintegrating tablet Indications: Gastroenteritis Take 1 tablet by mouth every 6 hours as needed for nausea/vomiting for up to 7 days. 12 tablet 05/07/2024 05/14/2024 Active Start: 03-05-2023 End: 10-16-2023 take 1 tablet by mouth every eight hours as needed for nausea Ondansetron 4 mg tablet,disintegrating Discontinued 4 mg PO EVERY 8 HOURS NEEDED as needed for Nausea 15 5 August 23, 2023 1:00am October 16, 2023 5:36pm Start: 05-02-2022 End: 12-24-2023 take 1 tablet by mouth every six hours as needed for nausea ondansetron orally disintegrating (ZOFRA N ODT) 4 mg disintegrating tablet Indications: Nausea and vomiting, unspecified vomiting type Take 1 tablet by mouth every 6 hours as needed for nausea/vomiting. 9 tablet 0 05/02/2022 12/24/2023 Discontinued Comment on above: Take 1 tablet by edgar every 6 hours as needed for nausea/vomiting. potassium citrate 99 mg oral tablet (2 sources) Start: take 99 mg by mouth once daily Potassium Citrate Active 99 MG PO DAILY September 26, 2022 1:00am (20 sources) Start: Start: 11-23-2022 End: 01-13-2023 Start: 11-23-2022 End: 01-13-2023 Start: 11-15-2022 End: 11-23-2022 Start: 11-15-2022 End: 11-23-2022 Start: 11-08-2022 End: 11-08-2022 Start: 11-08-2022 End: 11-15-2022 Start: 11-08-2022 End: 11-23-2022 Start: 09-26-2022 End: 11-15-2022 Start: 09-26-2022 End: 09-26-2022 Start: 09-26-2022 End: 11-23-2022 Start: 08-07-2022 End: 11-08-2022 Start: 04-01-2022 End: 08-07-2022 Start: 11-07-2021 End: 11-23-2022 Start: 11-05-2021 Start: 09-05-2021 End: 11-05-2021 Start: 08-09-2021 End: 11-07-2021 Start: 08-09-2021 End: 09-26-2022 Start: 05-08-2021 End: 09-05-2021 Start: 03-28-2021 End: 08-09-2021 Start: 05-19-2020 End: 11-23-2022 Start: 05-19-2020 End: 03-28-2021 Start: 02-01-2020 End: 05-19-2020 Start: 09-07-2018 End: 02-15-2019 Start: 09-07-2018 End: 09-07-2018 Start: 09-07-2018 End: 09-07-2018 Start: 08-25-2018 Start: 07-06-2018 End: 07-06-2018 Start: 06-29-2018 End: 07-06-2018 Start: 04-15-2018 End: 06-29-2018 Start: 04-15-2018 End: 04-15-2018 Start: 11-24-2017 End: 11-24-2017 Start: 10-27-2017 End: 11-24-2017 Start: 09-10-2017 End: 09-10-2017 Completed/Discontinued Medications Medication Drug Class(es) Dates Sig (Normalized) Sig (Original) acetaminophen 325 mg / oxyCODONE hydrochloride 5 mg oral tablet (7 sources) Opioid Agonist Start: 11-11-2023 End: 11-28-2023 Oxycodone-Acetamino phen (Percocet) 5-325 mg tablet Discontinued 1 {tbl} PO EVERY 6 HOURS as needed for pain 12 November 11, 2023 November 28, 2023 1:59pm ACETONE (URINE) TEST (3 sources) Start: 04-07-2017 KETOSTIX STRP use to check ketones when pt has fever, is vomiting or has blood glucose greater than 300 ICD 10 : E10.9 ACETONE (URINE) TEST [id number] Radha Sterling NP Start: 04-07-2017 KETOSTIX STRP use to check ketones when pt has fever, is vomiting or has blood glucose greater than 300 ICD 10 : E10.9 ACETONE (URINE) TEST [id number] Radha Sterling NP ACETONE (URINE) TEST (1 source) Start: 04-07-2017 KETOSTIX STRP use to check ketones when pt has fever, is vomiting or has blood glucose greater than 300 ICD 10 : E10.9 ACETONE (URINE) TEST [id number] Radha Sterling NP ACETONE (URINE) TEST (3 sources) Start: 04-07-2017 KETOSTIX STRP use to check ketones when pt has fever, is vomiting or has blood glucose greater than 300 ICD 10 : E10.9 ACETONE (URINE) TEST [id number] Radha Sterling FARM MANAGEMENT TEACHER Blood-Glucose Meter (FREESTY LE INSULINX) [facility] [place] (1 source) Start: 08-22-2016 End: 06-07-2021 Blood-Glucose Meter (FREESTY LE INSULINX) [facility] [place] Use as directed 1 Each 08/22/2016 06/07/2021 Discontinued Blood-Glucose Meter (Freesty le Lite Meter) kit (4 sources) Start: 07-06-2018 End: 07-06-2018 Blood-Glucose Meter (Freesty le Lite Meter) kit Discontinued 0 .ROUTE .MEDSUPPLY July 06, 2018 1:00am July 06, 2018 1:42pm use to check BG 6 x qd Blood-Glucose Meter (FREESTY LE LITE METER) monitoring kit (10 sources) Start: 04-07-2014 End: 12-24-2023 Blood-Glucose Meter (FREESTY LE LITE METER) monitoring kit Supply to be used as directed. 2 Each 0 04/07/2014 12/24/2023 Discontinued Start: 04-07-2014 Blood-Glucose Meter (FREESTYLE LITE METER) monitoring kit Supply to be used as directed. 2 Each 0 04/07/2014 Active Comment on above: Supply to be used as directed. blood-glucose meter kit (13 sources) Start: 07-06-2018 End: 07-06-2018 blood-glucose meter kit Discontinued 0 .ROUTE .MEDSUPPLY July 06, 2018 9:56am July 06, 2018 1:42pm use to check BG 6 x qd Start: 07-06-2018 End: 07-06-2018 blood-glucose meter kit Disc ontinued 0 .ROUTE .MEDSUPPLY July 06, 2018 1:00am July 06, 2018 1:42pm use to check BG 6 x qd Start: 07-06-2018 End: 07-06-2018 blood-glucose meter kit Disc ontinued 0 .ROUTE .MEDSUPPLY July 06, 2018 12:00am July 06, 2018 12:42pm use to check BG 6 x qd Blood-Glucose Meter monitori ng kit (1 source) Start: 12-24-2023 End: 12-24-2023 Blood-Glucose Meter monitori ng kit Glucose Meter of Choice - Kit - Dx: Type 1 DM - Uncontrolled E 10.65 1 Each 0 12/24/2023 12/24/2023 Discontinued Blood-Glucose Sensor (Dexcom G6 Sensor) device (20 sources) Start: 11-10-2023 End: 11-28-2024 Blood-Glucose Sensor (Dexcom G6 Sensor) device Discontinued 0 .Route November 10, 2023 11:33am November 28, 2024 1:07pm 1 sensor q 10 days Start: 11-10-2023 Blood-Glucose Sensor (Dexcom G6 Sensor) device Active 0 .Route November 10, 2023 11:33am 1 sensor q 10 days Start: 05-12-2023 End: 11-10-2023 Blood-Glucose Sensor (Dexcom G6 Sensor) device Discontinued 0 .Route May 12, 2023 2:06pm November 10, 2023 11:35am 1 sensor q 10 days Start: 05-12-2023 Blood-Glucose Sensor (Dexcom G6 Sensor) device Active 0 .Route May 12, 2023 2:06pm 1 sensor q 10 days Start: 05-12-2023 Blood-Glucose Sensor (Dexcom G6 Sensor) device Active 0 .Route May 12, 2023 1:06pm 1 sensor q 10 days Start: 03-13-2023 End: 05-12-2023 Blood-Glucose Sensor (Dexcom G6 Sensor) device Discontinued 0 .Route March 13, 2023 2:06pm May 12, 2023 2:06pm 1 sensor q 10 days Start: 03-13-2023 End: 05-12-2023 Blood-Glucose Sensor (Dexcom G6 Sensor) device Discontinued 0 .Route March 13, 2023 1:06pm May 12, 2023 1:06pm 1 sensor q 10 days Start: 11-23-2022 End: 03-13-2023 Blood-Glucose Sensor (Dexcom G6 Sensor) device Discontinued 0 .Route 10 November 23, 2022 8:46am March 13, 2023 2:07pm As directed Start: 11-23-2022 End: 03-13-2023 Blood-Glucose Sensor (Dexcom G6 Sensor) device Discontinued 0 .Route 10 November 23, 2022 7:46am March 13, 2023 1:07pm As directed Start: 11-23-2022 Blood-Glucose Sensor (Dexcom G6 Sensor) device Active 0 .Route 10 November 23, 2022 8:46am As directed Start: 09-26-2022 End: 11-23-2022 Blood-Glucose Sensor (Dexcom G6 Sensor) device Discontinued 0 .Route 10 September 26, 2022 12:00am November 23, 2022 7:47am As directed Start: 09-26-2022 End: 11-23-2022 Blood-Glucose Sensor (Dexcom G6 Sensor) device Discontinued 0 .Route 10 September 26, 2022 1:00am November 23, 2022 8:47am As directed Start: 09-26-2022 Blood-Glucose Sensor (Dexcom G6 Sensor) device Active 0 .Route 10 September 26, 2022 1:00am As directed Blood-Glucose Sensor (Freest yle Daniela 3 Sensor) device (15 sources) Start: 09-26-2022 End: 09-26-2022 Blood-Glucose Sensor (Freest yle Daniela 3 Sensor) device Discontinued 0 .Route 2 September 26, 2022 12:00am September 26, 2022 4:11pm As directed Start: 09-26-2022 End: 09-26-2022 Blood-Glucose Sensor (Freest yle Daniela 3 Sensor) device Discontinued 0 .Route 2 September 26, 2022 1:00am September 26, 2022 5:11pm As directed Blood-Glucose Transmitter (Dexcom G6 Transmitter) device (20 sources) Start: 11-10-2023 End: 11-28-2024 Blood-Glucose Transmitter (Dexcom G6 Transmitter) device Discontinued 0 .Route 1 November 10, 2023 11:34am November 28, 2024 1:07pm As directed Start: 11-10-2023 Blood-Glucose Transmitter (Dexcom G6 Transmitter) device Active 0 .Route 1 November 10, 2023 11:34am As directed Start: 08-14-2023 End: 11-10-2023 Blood-Glucose Transmitter (D excom G6 Transmitter) device Discontinued 0 .Route 1 August 14, 2023 11:16am November 10, 2023 11:35am As directed Start: 08-14-2023 Blood-Glucose Transmitter (Dexcom G6 Transmitter) device Active 0 .Route 1 August 14, 2023 11:16am As directed Start: 08-14-2023 Blood-Glucose Transmitter (Dexcom G6 Transmitter) device Active 0 .Route 1 August 14, 2023 10:16am As directed Start: 05-12-2023 End: 08-14-2023 Blood-Glucose Transmitter (D excom G6 Transmitter) device Discontinued 0 .Route 1 May 12, 2023 12:00am August 14, 2023 11:16am As directed Start: 05-12-2023 End: 08-14-2023 Blood-Glucose Transmitter (D excom G6 Transmitter) device Discontinued 0 .Route 1 May 11, 2023 11:00pm August 14, 2023 10:16am As directed Start: 11-23-2022 End: 11-10-2023 Blood-Glucose Transmitter (D excom G6 Transmitter) device Discontinued 0 .Route November 23, 2022 8:46am November 10, 2023 11:34am As directed Start: 11-23-2022 Blood-Glucose Transmitter (Dexcom G6 Transmitter) device Active 0 .Route 1 November 23, 2022 7:46am As directed Start: 11-23-2022 Blood-Glucose Transmitter (Dexcom G6 Transmitter) device Active 0 .Route 1 November 23, 2022 8:46am As directed Start: 09-26-2022 End: 11-23-2022 Blood-Glucose Transmitter (D excom G6 Transmitter) device Discontinued 0 .Route 1 September 26, 2022 12:00am November 23, 2022 7:47am As directed Start: 09-26-2022 End: 11-23-2022 Blood-Glucose Transmitter (D excom G6 Transmitter) device Discontinued 0 .Route 1 September 26, 2022 1:00am November 23, 2022 8:47am As directed Start: 09-26-2022 Blood-Glucose Transmitter (Dexcom G6 Transmitter) device Active 0 .Route 1 September 26, 2022 1:00am As directed cetirizine hydrochloride 10 mg oral tablet (14 sources) Histamine-1 Receptor Antagonist Start: 05-19-2017 End: 06-07-2021 take 1 tablet by mouth once daily cetirizine (ZYRTEC) 10 mg tablet take 1 tablet by mouth once daily 30 tablet 11 05/19/2017 06/07/2021 Discontinued Start: 02-20-2017 ZYRTEC ALLERGY 10 MG CAPS CETIRIZINE HCL [id number] Bhumika Arevalos FARM MANAGEMENT TEACHER Start: 02-20-2017 ZYRTEC ALLERGY 10 MG CAPS CETIRIZINE HCL [id number] Bhumika S Sullivan FARM MANAGEMENT TEACHER EPINEPHRINE SOAJ (9 sources) alpha-Adrenergic Agonist, beta-Adrenergic Agonist, Catecholamine Start: 04-02-2017 EPIPEN 2-REBA SOAJ EPINEPHRINE SOAJ [id number] Radha Sterling FARM MANAGEMENT TEACHER Start: 04-02-2017 EPIPEN 2-REBA S OAJ EPINEPHRINE SOAJ [phone] Radha Sterling NP famotidine 20 mg oral tablet (16 sources) Histamine-2 Receptor Antagonist Start: 03-02-2023 End: 12-24-2023 take 1 tablet by mouth twice daily Famotidine (Pepcid) 20 mg tablet Discontinued 20 mg PO TWICE A DAY 60 30 March 02, 2023 12:00am March 03, 2023 3:00pm Comment on above: Take 20 mg by mouth twice daily. flash glucose scanning reader (FREESTYLE DANIELA 14 DAY READER) misc (10 sources) Start: 03-16-2019 End: 12-24-2023 flash glucose scanning reader (FREESTYLE DANIELA 14 DAY READER) misc For blood sugar checks 4 times a day 1 Each 1 03/16/2019 12/24/2023 Discontinued Start: 03-16-2019 flash glucose scanning reader (FREESTYLE DANIELA 14 DAY READER) misc For blood sugar checks 4 times a day 1 Each 1 03/16/2019 Active Comment on above: For blood sugar chec ks 4 times a day Flash Glucose Sensor (Freestyle Daniela 14 Day Sensor) kit (20 sources) Start: 11-23-2022 End: 01-13-2023 Flash Glucose Sensor (Freestyle Daniela 14 Day Sensor) kit Discontinued 0 .ROUTE .MEDSUPPLY 2 November 23, 2022 7:46am January 13, 2023 10:38am As directed Start: 11-23-2022 End: 01-13-2023 Flash Glucose Sensor (Freest yle Daniela 14 Day Sensor) kit Discontinued 0 .ROUTE .MEDSUPPLY 2 November 23, 2022 8:46am January 13, 2023 11:38am As directed Start: 11-23-2022 Flash Glucose Sensor (Freestyle Daniela 14 Day Sensor) kit Active 0 .ROUTE .MEDSUPPLY November 23, 2022 8:46am As directed Start: 11-07-2021 End: 11-23-2022 Flash Glucose Sensor (Freest yle Daniela 14 Day Sensor) kit Discontinued 0 .ROUTE .MEDSUPPLY 2 November 07, 2021 8:33am November 23, 2022 7:47am As directed Start: 11-07-2021 End: 11-23-2022 Flash Glucose Sensor (Freest yle Daniela 14 Day Sensor) kit Discontinued 0 .ROUTE .MEDSUPPLY 2 November 07, 2021 9:33am November 23, 2022 8:47am As directed Start: 11-07-2021 Flash Glucose Sensor (Freestyle Daniela 14 Day Sensor) kit Active 0 .ROUTE .MEDSUPPLY 2 November 07, 2021 8:33am As directed Start: 11-07-2021 Flash Glucose Sensor (Freestyle Daniela 14 Day Sensor) kit Active 0 .ROUTE .MEDSUPPLY 2 November 07, 2021 9:33am As directed Start: 08-09-2021 End: 11-07-2021 Flash Glucose Sensor (Freest yle Daniela 14 Day Sensor) kit Discontinued 0 .ROUTE .MEDSUPPLY 2 August 09, 2021 10:48am November 07, 2021 8:33am As directed Start: 08-09-2021 End: 11-07-2021 Flash Glucose Sensor (Freest yle Daniela 14 Day Sensor) kit Discontinued 0 .ROUTE .MEDSUPPLY 2 August 09, 2021 11:48am November 07, 2021 9:33am As directed Start: 03-28-2021 End: 08-09-2021 Flash Glucose Sensor (Freest yle Daniela 14 Day Sensor) kit Discontinued 0 .ROUTE .MEDSUPPLY 2 March 28, 2021 10:26am August 09, 2021 10:49am As directed Start: 03-28-2021 End: 08-09-2021 Flash Glucose Sensor (Freest yle Daniela 14 Day Sensor) kit Discontinued 0 .ROUTE .MEDSUPPLY 2 March 28, 2021 11:26am August 09, 2021 11:49am As directed Start: 05-19-2020 End: 03-28-2021 Flash Glucose Sensor (Freest yle Daniela 14 Day Sensor) kit Discontinued 0 .ROUTE .MEDSUPPLY 2 May 19, 2020 2:02pm March 28, 2021 10:26am As directed Start: 05-19-2020 End: 03-28-2021 Flash Glucose Sensor (Freest yle Daniela 14 Day Sensor) kit Discontinued 0 .ROUTE .MEDSUPPLY 2 May 19, 2020 3:02pm March 28, 2021 11:26am As directed Start: 02-01-2020 End: 05-19-2020 Flash Glucose Sensor (Freest yle Daniela 14 Day Sensor) kit Discontinued 0 .ROUTE .MEDSUPPLY 2 February 01, 2020 11:33am May 19, 2020 3:02pm As directed Start: 02-01-2020 End: 05-19-2020 Flash Glucose Sensor (Freest yle Daniela 14 Day Sensor) kit Discontinued 0 .ROUTE .MEDSUPPLY 2 February 01, 2020 12:00am May 19, 2020 3:02pm As directed Start: 02-01-2020 End: 05-19-2020 Flash Glucose Sensor (Freest yle Daniela 14 Day Sensor) kit Discontinued 0 .ROUTE .MEDSUPPLY 2 January 31, 2020 11:00pm May 19, 2020 2:02pm As directed flash glucose sensor (FREEST YLE DANIELA 14 DAY SENSOR) kit (10 sources) Start: 08-03-2020 End: 12-24-2023 flash glucose sensor (FREEST YLE DANIELA 14 DAY SENSOR) kit Indications: Type 1 diabetes mellitus without complication (HCC) apply 1 SENSOR TO THE BACK OF UPPER ARM. REMOVE AND REPLACE EVERY 14 DAYS. USE WITH DEVICE TO MONITOR BLOOD SUGAR four times a day 2 Kit 5 08/03/2020 12/24/2023 Discontinued Start: 08-03-2020 flash glucose sensor (FREESTYLE DANIELA 14 DAY SENSOR) kit Indications: Type 1 diabetes mellitus without complication (HCC) apply 1 SENSOR TO THE BACK OF UPPER ARM. REMOVE AND REPLACE EVERY 14 DAYS. USE WITH DEVICE TO MONITOR BLOOD SUGAR four times a day 2 Kit 5 08/03/2020 Active Start: 11-08-2019 End: 08-03-2020 flash glucose sensor (FREEST YLJai DANIELA 14 DAY SENSOR) kit Indications: Type 1 diabetes mellitus without complication (HCC) apply 1 SENSOR TO THE BACK OF UPPER ARM. REMOVE AND REPLACE EVERY 14 DAYS. USE WITH DEVICE TO MONITOR BLOOD SUGAR four times a day 2 Kit 5 11/08/2019 08/03/2020 Discontinued Comment on above: apply 1 SENSOR TO TH E BACK OF UPPER ARM. REMOVE AND REPLACE EVERY 14 DAYS. USE WITH DEVICE TO MONITOR BLOOD SUGAR four times a day fluconazole 150 mg oral tablet (20 sources) Azole Antifungal Start: 03-28-2017 End: 04-02-2017 DIFLUCAN 150 MG TABS take 1 po now and repeat in 72 hours FLUCONAZOLE [id number] Citlali Levy MD glucagon (rdna) 1 mg injection (20 sources) Antihypoglycemic Agent Start: 01-02-2017 GLUCAGEN DIAGNOSTIC 1 MG SOLR emergency injection GLUCAGON HCL RDNA (DIAGNOSTIC) [id number] Ana Burnette Start: 06-27-2015 End: 12-24-2023 glucagon, human recombinant, (GLUCAGON EMERGENCY KIT, HUMAN,) 1 mg injection Indications: Type 1 diabetes mellitus without complication (HCC) Inject 1 mg intramuscularly as directed. Use when pt is unconsciousness or having a seizure. 1 Each 3 06/27/2015 12/24/2023 Discontinued Comment on above: Inject 1 mg intramus cularly as directed. Use when pt is unconsciousness or having a seizure. hydrOXYzine pamoate 25 mg oral capsule (20 sources) Antihistamine Start: 02-08-20 22 End: 11-28-19 25 take 1 capsule by mouth at bedtime Hydroxyzine Pamoate (Vistaril) 25 mg capsule Discontinued 25 mg PO AT BEDTIME December 11, 2022 3:02pm January 13, 2023 12:34pm Insulin Admin Supplies (NOVOPEN ECHO) inpn (10 sources) Start: 11-23-19 End: 12-24-19 24 Insulin Admin Supplies (NOVOPEN ECHO) inpn Up to 80 units total daily dose. 10 Each 11 11/22/2014 12/24/2023 Discontinued Start: 11-22-2014 Insulin Admin Supplies (NOVOPEN ECHO) inpn Up to 80 units total daily dose. 10 Each 11 11/22/2014 Active Comment on above: Up to 80 units total daily dose. 3 ml insulin degludec 100 unt/ml pen injector (19 sources) Insulin Analog Start: 02-01-2020 End: 03-16-2020 Insulin Degludec (Tresiba Flextouch U-100) 100 unit/mL (3 mL) insulin pen Discontinued 32 U SC DAILY February 01, 2020 12:00am March 16, 2020 8:53am Start: 02-01-2020 End: 03-16-2020 insulin detemir 100 unt/ml injectable solution (20 sources) Insulin Analog Start: 05-18-2018 End: 06-29-2018 Insulin Detemir U-100 (Levemir U-100 Insulin) 100 unit/mL solution Discontinued 40 U SC TWICE A DAY May 18, 2018 1:10pm June 29, 2018 11:52am second dose with evening meal, at bedtime or 12 hours after morning dose Start: 05-18-2018 End: 06-29-2018 Start: 04-01-2018 End: 05-18-2018 Insulin Detemir U-100 100 UN ITS/ML insulin pen Discontinued 40 U SC AT BEDTIME April 01, 2018 2:18pm May 18, 2018 10:57am administer second dose with evening meal, at bedtime, or 12 hrs after morning dose Start: 04-01-2018 End: 05-18-2018 Insulin Detemir U-100 Discon tinued 40 UNIT SC AT BEDTIME April 01, 2018 2:18pm May 18, 2018 10:57am administer second dose with evening meal, at bedtime, or 12 hrs after morning dose Start: 10-16-2017 End: 04-01-2018 Insulin Detemir U-100 (Levem ir Flextouch U100 Insulin) 100 unit/mL (3 mL) insulin pen Discontinued 40 U SC TWICE A DAY October 16, 2017 5:23pm April 01, 2018 2:18pm administer second dose with evening meal, at bedtime, or 12 hrs after morning dose Start: 10-16-2017 End: 05-18-2018 Start: 07-03-2017 End: 10-07-2017 Insulin Detemir U-100 (Levem ir U-100 Insulin) 100 unit/mL solution Discontinued 80 U SC AT BEDTIME July 03, 2017 1:00am October 07, 2017 4:43pm Start: 07-03-2017 End: 10-07-2017 Start: 02-20-2017 LEVEMIR 100 UN IT/ML SOLN INSULIN DETEMIR [id number] Bhumika Cardenas FARM MANAGEMENT TEACHER Start: 02-20-2017 LEVEMIR 100 UN IT/ML SOLN INSULIN DETEMIR [id number] Bhumika Cardenas FARM MANAGEMENT TEACHER Start: 02-20-2017 LEVEMIR 100 UN IT/ML SOLN INSULIN DETEMIR [id number] Bhumika Cardenas FARM MANAGEMENT TEACHER Start: 02-20-2017 LEVEMIR 100 UN IT/ML SOLN INSULIN DETEMIR [id number] Bhumika Cardenas FARM MANAGEMENT TEACHER Start: 01-02-2017 LEVEMIR 100 UN IT/ML SOLN 85 units at night INSULIN DETEMIR [id number] Ana Burnette Start: 01-02-2017 LEVEMIR 100 UN IT/ML SOLN 85 units at night INSULIN DETEMIR [id number] Ana Burnette Start: 01-02-2017 LEVEMIR 100 UN IT/ML SOLN 85 units at night INSULIN DETEMIR [id number] nAa Burnette Start: 07-05-2015 End: 07-03-2017 Insulin Detemir U-100 100 UN ITS/ML insulin pen Discontinued 65 U SC AT BEDTIME July 05, 2015 1:00am July 03, 2017 11:44am Start: 07-05-2015 End: 07-03-2017 Insulin Detemir U-100 Discon tinued 65 UNITS SC AT BEDTIME July 05, 2015 1:00am July 03, 2017 11:44am Start: 07-05-2015 End: 07-03-2017 LEVEMIR 100 UNIT /ML SOLN 40U bid INSULIN DETEMIR [id number] Radha Sterling FARM MANAGEMENT TEACHER Insulin Glargine-Yfgn (14 sources) Start: 12-27-2022 End: 02-15-2023 Insulin Glargine-Yfgn 100 un it/mL (3 mL) Insulin Pen Discontinued 15 U SC TWICE A DAY December 27, 2022 12:00am February 15, 2023 4:35pm Start: 12-27-2022 End: 02-15-2023 Insulin Glargine-Yfgn Discon tinued 15 UNIT SC TWICE A DAY December 26, 2022 11:00pm February 15, 2023 3:35pm Start: 12-27-2022 End: 02-15-2023 Start: 12-27-2022 End: 02-15-2023 Insulin Glargine-Yfgn Discon tinued 15 UNIT SC TWICE A DAY December 27, 2022 12:00am February 15, 2023 4:35pm Insulin Glargine-Yfgn 100 unit/mL (3 mL) Insulin Pen (4 sources) Start: 05-14-2024 End: 11-27-2024 Insulin Glargine-Yfgn 100 unit/mL (3 mL) Insulin Pen Discontinued 30 U SC DAILY 0 May 14, 2024 12:00am November 27, 2024 2:07pm Start: 05-14-2024 Insulin Glargi ne-Yfgn 100 unit/mL (3 mL) Insulin Pen Active 30 U SC DAILY 0 May 14, 2024 12:00am Insulin Pump Cart,Auto,Bt-Cn tr (Omnipod 5 G6 Intro Kit (Gen 5)) cartridge (20 sources) Start: 08-15-2023 End: 05-14-2024 Insulin Pump Cart,Auto,Bt-Cn tr (Omnipod 5 G6 Intro Kit (Gen 5)) cartridge Discontinued 0 .Route 1 August 15, 2023 6:03pm May 14, 2024 9:47am As directed Start: 08-15-2023 Insulin Pump C art,Auto,Bt-Cntr (Omnipod 5 G6 Intro Kit (Gen 5)) cartridge Active 0 .Route August 15, 2023 6:03pm As directed Start: 08-15-2023 Insulin Pump C art,Auto,Bt-Cntr (Omnipod 5 G6 Intro Kit (Gen 5)) cartridge Active 0 .Route 1 August 15, 2023 5:03pm As directed Start: 05-12-2023 End: 08-15-2023 Insulin Pump Cart,Auto,Bt-Cn tr (Omnipod 5 G6 Intro Kit (Gen 5)) cartridge Discontinued 0 .Route 1 May 12, 2023 2:03pm August 15, 2023 6:03pm As directed Start: 05-12-2023 End: 08-15-2023 Insulin Pump Cart,Auto,Bt-Cn tr (Omnipod 5 G6 Intro Kit (Gen 5)) cartridge Discontinued 0 .Route 1 May 12, 2023 1:03pm August 15, 2023 5:03pm As directed Start: 11-23-2022 End: 05-12-2023 Insulin Pump Cart,Auto,Bt-Cn tr (Omnipod 5 G6 Intro Kit (Gen 5)) cartridge Discontinued 0 .Route 1 November 23, 2022 8:46am May 12, 2023 2:03pm As directed Start: 11-23-2022 End: 05-12-2023 Insulin Pump Cart,Auto,Bt-Cn tr (Omnipod 5 G6 Intro Kit (Gen 5)) cartridge Discontinued 0 .Route 1 November 23, 2022 7:46am May 12, 2023 1:03pm As directed Start: 11-23-2022 Insulin Pump C art,Auto,Bt-Cntr (Omnipod 5 G6 Intro Kit (Gen 5)) cartridge Active 0 .Route 1 November 23, 2022 8:46am As directed Start: 11-15-2022 End: 11-23-2022 Insulin Pump Cart,Auto,Bt-Cn tr (Omnipod 5 G6 Intro Kit (Gen 5)) cartridge Discontinued 0 .Route 1 November 15, 2022 12:02pm November 23, 2022 7:47am As directed Start: 11-15-2022 End: 11-23-2022 Insulin Pump Cart,Auto,Bt-Cn tr (Omnipod 5 G6 Intro Kit (Gen 5)) cartridge Discontinued 0 .Route 1 November 15, 2022 1:02pm November 23, 2022 8:47am As directed Start: 11-15-2022 Insulin Pump C art,Auto,Bt-Cntr (Omnipod 5 G6 Intro Kit (Gen 5)) cartridge Active 0 .Route 1 November 15, 2022 1:02pm As directed Start: 11-08-2022 End: 11-15-2022 Insulin Pump Cart,Auto,Bt-Cn tr (Omnipod 5 G6 Intro Kit (Gen 5)) cartridge Discontinued 0 .Route 1 November 07, 2022 11:00pm November 15, 2022 12:02pm As directed Start: 11-08-2022 End: 11-15-2022 Insulin Pump Cart,Auto,Bt-Cn tr (Omnipod 5 G6 Intro Kit (Gen 5)) cartridge Discontinued 0 .Route 1 November 08, 2022 12:00am November 15, 2022 1:02pm As directed Insulin Pump Cart,Automated, Bt (Omnipod 5 G6 Pods (Gen 5)) cartridge (20 sources) Start: 11-10-2023 End: 05-14-2024 Insulin Pump Cart,Automated, Bt (Omnipod 5 G6 Pods (Gen 5)) cartridge Discontinued 0 .Route 45 November 10, 2023 11:34am May 14, 2024 9:47am change every 48-72 hours Start: 11-10-2023 Insulin Pump C art,Automated,Bt (Omnipod 5 G6 Pods (Gen 5)) cartridge Active 0 .Route 45 November 10, 2023 11:34am change every 48-72 hours Start: 09-18-2023 End: 11-10-2023 Insulin Pump Cart,Automated, Bt (Omnipod 5 G6 Pods (Gen 5)) cartridge Discontinued 0 .Route 45 September 18, 2023 10:48am November 10, 2023 11:35am change every 48-72 hours Start: 09-18-2023 Insulin Pump C art,Automated,Bt (Omnipod 5 G6 Pods (Gen 5)) cartridge Active 0 .Route 45 September 18, 2023 10:48am change every 48-72 hours Start: 03-13-2023 End: 09-18-2023 Insulin Pump Cart,Automated, Bt (Omnipod 5 G6 Pods (Gen 5)) cartridge Discontinued 0 .Route 45 March 13, 2023 2:06pm September 18, 2023 10:48am change every 48-72 hours Start: 03-13-2023 Insulin Pump C art,Automated,Bt (Omnipod 5 G6 Pods (Gen 5)) cartridge Active 0 .Route 45 March 13, 2023 1:06pm change every 48-72 hours Start: 11-23-2022 End: 03-13-2023 Insulin Pump Cart,Automated, Bt (Omnipod 5 G6 Pods (Gen 5)) cartridge Discontinued 0 .Route 45 November 23, 2022 8:46am March 13, 2023 2:06pm change every 48-72 hours Start: 11-23-2022 End: 01-13-2023 Insulin Pump Cart,Automated, Bt (Omnipod 5 G6 Pods (Gen 5)) cartridge Discontinued 0 .Route 10 November 23, 2022 7:46am January 13, 2023 10:38am As directed Start: 11-23-2022 End: 03-13-2023 Insulin Pump Cart,Automated, Bt (Omnipod 5 G6 Pods (Gen 5)) cartridge Discontinued 0 .Route 45 November 23, 2022 7:46am March 13, 2023 1:06pm change every 48-72 hours Start: 11-23-2022 End: 01-13-2023 Insulin Pump Cart,Automated, Bt (Omnipod 5 G6 Pods (Gen 5)) cartridge Discontinued 0 .Route 10 November 23, 2022 8:46am January 13, 2023 11:38am As directed Start: 11-23-2022 Insulin Pump C art,Automated,Bt (Omnipod 5 G6 Pods (Gen 5)) cartridge Active 0 .Route 10 November 23, 2022 8:46am As directed Start: 11-23-2022 Insulin Pump C art,Automated,Bt (Omnipod 5 G6 Pods (Gen 5)) cartridge Active 0 .Route 45 November 23, 2022 8:46am change every 48-72 hours Start: 11-15-2022 End: 11-23-2022 Insulin Pump Cart,Automated, Bt (Omnipod 5 G6 Pods (Gen 5)) cartridge Discontinued 0 .Route November 15, 2022 12:02pm November 23, 2022 7:47am As directed Start: 11-15-2022 End: 11-23-2022 Insulin Pump Cart,Automated, Bt (Omnipod 5 G6 Pods (Gen 5)) cartridge Discontinued 0 .Route 10 November 15, 2022 1:02pm November 23, 2022 8:47am As directed Start: 11-15-2022 Insulin Pump C art,Automated,Bt (Omnipod 5 G6 Pods (Gen 5)) cartridge Active 0 .Route 10 November 15, 2022 1:02pm As directed Start: 11-08-2022 End: 11-23-2022 Insulin Pump Cart,Automated, Bt (Omnipod 5 G6 Pods (Gen 5)) cartridge Discontinued 0 .Route 45 November 07, 2022 11:00pm November 23, 2022 7:47am change every 48-72 hours Start: 11-08-2022 End: 11-23-2022 Insulin Pump Cart,Automated, Bt (Omnipod 5 G6 Pods (Gen 5)) cartridge Discontinued 0 .Route 45 November 08, 2022 12:00am November 23, 2022 8:47am change every 48-72 hours Start: 11-08-2022 Insulin Pump C art,Automated,Bt (Omnipod 5 G6 Pods (Gen 5)) cartridge Active 0 .Route 45 November 08, 2022 12:00am change every 48-72 hours Start: 09-26-2022 End: 11-15-2022 Insulin Pump Cart,Automated, Bt (Omnipod 5 G6 Pods (Gen 5)) cartridge Discontinued 0 .Route 10 September 26, 2022 12:00am November 15, 2022 12:02pm As directed Start: 09-26-2022 End: 11-15-2022 Insulin Pump Cart,Automated, Bt (Omnipod 5 G6 Pods (Gen 5)) cartridge Discontinued 0 .Route 10 September 26, 2022 1:00am November 15, 2022 1:02pm As directed Insulin Pump Cart,Cont Inf,B t (Omnipod Dash Pods (Gen 4)) cartridge (20 sources) Start: 11-08-2022 End: 11-08-2022 Insulin Pump Cart,Cont Inf,B t (Omnipod Dash Pods (Gen 4)) cartridge Discontinued 0 .Route November 08, 2022 11:52am November 08, 2022 11:54am 1 pod q 48-72 hours Start: 11-08-2022 End: 11-08-2022 Insulin Pump Cart,Cont Inf,B t (Omnipod Dash Pods (Gen 4)) cartridge Discontinued 0 .Route November 08, 2022 12:52pm November 08, 2022 12:54pm 1 pod q 48-72 hours Start: 08-07-2022 End: 11-08-2022 Insulin Pump Cart,Cont Inf,B t (Omnipod Dash Pods (Gen 4)) cartridge Discontinued 0 .Route August 07, 2022 3:17pm November 08, 2022 11:53am 1 pod q 48-72 hours Start: 08-07-2022 End: 11-08-2022 Insulin Pump Cart,Cont Inf,B t (Omnipod Dash Pods (Gen 4)) cartridge Discontinued 0 .Route August 07, 2022 4:17pm November 08, 2022 12:53pm 1 pod q 48-72 hours Start: 04-01-2022 End: 08-07-2022 Insulin Pump Cart,Cont Inf,B t (Omnipod Dash Pods (Gen 4)) cartridge Discontinued 0 .Route March 31, 2022 11:00pm August 07, 2022 3:17pm 1 pod q 48-72 hours Start: 04-01-2022 End: 08-07-2022 Insulin Pump Cart,Cont Inf,B t (Omnipod Dash Pods (Gen 4)) cartridge Discontinued 0 .Route April 01, 2022 12:00am August 07, 2022 4:17pm 1 pod q 48-72 hours Start: 04-01-2022 Insulin Pump C art,Cont Inf,Bt (Omnipod Dash Pods (Gen 4)) cartridge Active 0 .Route March 31, 2022 11:00pm 1 pod q 48-72 hours INSULIN SYRINGE-NEEDLE U-100 (1 source) Start: 04-02-2017 End: 07-02-2025 CAREONE INSULIN SYRINGE 31G X 5/16 1 ML Use as adirected INSULIN SYRINGE-NEEDLE U-100 [id number] Radha Sterling NP Insulin Syringe-Needle U-100 (13 sources) Start: 06-29-2018 End: 07-06-2018 Insulin Syringe-Needle U-100 Discontinued 0 UNIT .Route .[facility] June 29, 2018 10:52am July 06, 2018 8:55am use to inject insulin 4 x qd Start: 06-29-2018 End: 07-06-2018 Insulin Syringe-Needle U-100 Discontinued 0 UNIT .Route .[facility] June 29, 2018 11:52am July 06, 2018 9:55am use to inject insulin 4 x qd Insulin Syringe-Needle U-100 (BD INSULIN SYINGE MICROFINE) 0.3 mL 28 syrg (10 sources) Start: 08-11-2014 End: 12-24-2023 Insulin Syringe-Needle U-100 (BD INSULIN SYINGE MICROFINE) 0.3 mL 28 syrg Supply to be used as directed. 50 Syringe 11 08/11/2014 12/24/2023 Discontinued Start: 08-11-2014 Insulin Syring e-Needle U-100 (BD INSULIN SYINGE MICROFINE) 0.3 mL 28 syrg Supply to be used as directed. 50 Syringe 11 08/11/2014 Active Comment on above: Supply to be used as directed. Insulin Syringe-Needle U-100 1 EACH syringe (4 sources) Start: 06-29-2018 End: 07-06-2018 Insulin Syringe-Needle U-100 1 EACH syringe Discontinued 0 U .Route .[facility] June 29, 2018 11:52am July 06, 2018 9:55am use to inject insulin 4 x qd lanolin / petrolatum (5 sources) Start: 04-02-2017 End: 07-02-2025 CAREONE INSULIN SYRINGE 31G X 5/16 1 ML MISC Use as adirected INSULIN SYRINGE-NEEDLE U-100 [id number] Radha Sterling NP Start: 04-02-2017 End: 07-02-2025 CAREONE INSULIN SYRINGE 31G X 5/16 1 ML MISC Use as adirected INSULIN SYRINGE-NEEDLE U-100 [id number] Radha Sterling NP levoFLOXacin 750 mg oral tablet (5 sources) Quinolone Antimicrobial Start: 11-28-2023 End: 05-13-2024 take 1 tablet by mouth once daily Levofloxacin 750 mg tablet Discontinued 750 mg PO DAILY November 28, 2023 12:00am May 13, 2024 2:21am metoclopramide 5 mg oral tablet (4 sources) Dopamine-2 Receptor Antagonist Start: 05-12-2024 End: 11-27-2024 take 1 tablet by mouth once daily as needed for nausea and vomiting Metoclopramide Hcl (Reglan) 5 mg tablet Discontinued 5 mg PO DAILY as needed for nausea and vomiting 9 May 12, 2024 3:06pm November 27, 2024 2:08pm metroNIDAZOLE 500 mg oral tablet (5 sources) Nitroimidazole Antimicrobial Start: 11-28-2023 End: 05-13-2024 take 1 tablet by mouth every eight hours Metronidazole 500 mg tablet Discontinued 500 mg PO Q8H November 28, 2023 12:00am May 13, 2024 2:21am mometasone furoate 1 mg/ml topical cream (1 source) Corticosteroid Start: 03-04-2019 End: 06-07-2021 mometasone (ELOCON) 0.1 % cream Apply 1 application to affected area once daily. 15 g 1 03/04/2019 06/07/2021 Discontinued naproxen 500 mg oral tablet (8 sources) Nonsteroidal Anti-inflammatory Drug Start: 12-31-2021 End: 12-24-2023 take 1 tablet by mouth every twelve hours as needed naproxen (NAPROSYN) 500 mg tablet Take 1 tablet by mouth twice daily as needed (for pain/inflammation) . Take with food. 30 tablet 0 12/31/2021 12/24/2023 Discontinued Comment on above: Take 1 tablet by edgar twice daily as needed (for pain/inflammation). Take with food. oseltamivir 75 mg oral capsule (9 sources) Neuraminidase Inhibitor Start: 08-23-2023 End: 10-16-2023 take 1 capsule by mouth once daily Oseltamivir (Tamiflu) 75 mg capsule Discontinued 75 mg PO DAILY August 23, 2023 1:00am October 16, 2023 5:36pm microencapsulated potassium chloride 20 meq extended release oral tablet (20 sources) Start: 03-22-2021 End: 09-26-2022 Potassium Chloride (Klor-Con M20) 20 mEq tablet,ER particles/crystals Discontinued 20 meq PO DAILY 11 22March 22, 2021 12:00am September 26, 2022 4:53pm Start: 02-18-2019 End: 12-24-2023 potassium chloride ER (K-DUR , KLOR-CON) 20 mEq tablet Take 20 mEq by mouth twice daily. 0 02/18/2019 12/24/2023 Discontinued Comment on above: Take 20 mEq by mouth twice daily. promethazine hydrochloride 25 mg oral tablet (16 sources) Phenothiazine Start: 03-02-20 End: 12-24-19 take 1 tablet by mouth three times daily as needed for nausea and vomiting Promethazine 25 mg tablet Discontinued 25 mg PO THREE TIMES A DAY as needed for nausea and vomiting March 02, 2023 12:00am March 03, 2023 3:01pm Comment on above: Take 25 mg by mouth three times daily. Take one tablet three times daily as needed sucralfate 1000 mg oral tablet (16 sources) Aluminum Complex Start: 03-02-20 End: 12-24-19 take 1 tablet by mouth three times daily Sucralfate (Carafate) 1 gram tablet Discontinued 1 g PO THREE TIMES A DAY 90 March 02, 2023 12:00am March 03, 2023 3:01pm Comment on above: Take 1 g by mouth th ree times daily. traZODone hydrochloride 50 mg oral tablet (20 sources) Serotonin Reuptake Inhibitor Start: 06-07-20 End: 12-24-19 take 1 tablet by mouth at bedtime as needed Trazodone 50 mg tablet Discontinued 50 mg PO AT BEDTIME as needed November 07, 2021 12:00am September 26, 2022 4:54pm Comment on above: Take 1 tablet by edgar th daily at bedtime. Problems Active Problems Problem Classification Problem Date Documented Da te Episodic/Chronic Abdominal pain (20 sources) Abdominal pain; Translations: [Unspecified abdominal pain] 08-10-2015 Episodic Acute and unspecified renal failure (20 sources) Injury of kidney; Translations: [Acute kidney failure, unspecified] 12-24-2022 Episodic Anxiety disorders (20 sources) Anxiety; Translations: [Anxiety disorder, unspecified] Onset: 01-27-2024 11-21-2022 Chronic Appendicitis and other appendiceal conditions (8 sources) Appendicitis; Translations: [Unspecified appendicitis] 11-26-2023 Episodic Asthma (20 sources) Asthma; Translations: [Unspecified asthma, uncomplicated] Onset: 12-31-2011 01-02-2017 Chronic Cardiac dysrhythmias (20 sources) Sinus tachycardia; Translations: [Tachycardia, unspecified] 07-31-2022 Episodic Contraceptive and procreative management (15 sources) Encounter for surveillance of other contraceptives; Translations: [Patient encounter status] Onset: 04-17-2017 04-21-2017 Episodic Diabetes mellitus with complications (20 sources) Type 1 diabetes mellitus with ketoacidosis without coma; Translations: [Diabetic ketoacidosis] Onset: 02-10-2021 Chronic Diabetes mellitus without complication (20 sources) Type 1 diabetes mellitus without complications; Translations: [Type 1 diabetes mellitus] Onset: 12-31-2011 01-02-2017 Chronic Diabetes mellitus without complication (20 sources) Insulin pump present; Translations: [Presence of insulin pump (external) (internal)] Episodic Diseases of white blood cells (20 sources) Leukocytosis; Translations: [Elevated white blood cell count, unspecified] Onset: 05-18-2024 11-21-2022 Chronic E Codes: Natural/environment (4 sources) Repetitive motion disorder; Translations: [Overexertion from repetitive movements, initial encounter] 10-04-2024 Episodic Esophageal disorders (14 sources) Esophagitis; Translations: [Esophagitis] 03-03-2023 Episodic Fluid and electrolyte disorders (20 sources) Dehydration; Translations: [Hypokalemia] Onset: 02-10-2021 07-31-2022 Episodic Hepatitis (19 sources) Acute type A viral hepatitis; Translations: [Hepatitis A without hepatic coma] 01-14-2020 Episodic Immunizations and screening for infectious disease (4 sources) Contact with and (suspected) exposure to other viral communicable diseases; Translations: [Exposure to SARS-associated coronavirus] 04-07-2023 Episodic Influenza (9 sources) Influenza due to Influenza A virus; Translations: [Influenza due to other identified influenza virus with other respiratory manifestations] 08-31-2023 Episodic Menstrual disorders (13 sources) Irregular periods; Translations: [Irregular menstruation, unspecified] Onset: 02-20-2017 02-20-2017 Chronic Mood disorders (20 sources) Depressive disorder; Translations: [Depression] 11-21-2022 Chronic Nausea and vomiting (20 sources) Nausea and vomiting; Translations: [Nausea with vomiting, unspecified] Onset: 05-18-2024 11-21-2022 Episodic Neoplasms of unspecified nature or uncertain behavior (1 source) Essential (hemorrhagic) thrombocythemia; Translations: [Essential (hemorrhagic) thrombocythemia] Onset: 02-10-2021 Chronic Noninfectious gastroenteritis (15 sources) Colitis; Translations: [Noninfective gastroenteritis and colitis, unspecified] 11-26-2023 Episodic Other connective tissue disease (1 source) Pain in right hand; Translations: [Pain in right hand] 05-05-2020 Episodic Other connective tissue disease (4 sources) Pain in thumb ; Translations: [Pain in right finger(s)] 10-04-2024 Episodic Other connective tissue disease (1 source) Pain in right finger(s); Translations: [Pain in right finger(s)] Onset: 11-02-2024 Episodic Other gastrointestinal disorders (5 sources) Diarrhea; Translations: [Diarrhea, unspecified] 08-18-2024 Episodic Other infections; including parasitic (19 sources) History of hepatitis A; Translations: [Personal history of other infectious and parasitic diseases] 01-13-2020 Episodic Other liver diseases (19 sources) Inflammatory disease of liver; Translations: [Inflammatory liver disease, unspecified] 01-14-2020 Chronic Other nervous system disorders (19 sources) Numbness and tingling sensation of skin; Translations: [Anesthesia of skin] 11-07-2021 Episodic Other nervous system disorders (1 source) Anesthesia of skin; Translations: [Disturbance of skin sensation] Episodic Other nutritional; endocrine; and metabolic disorders (14 sources) Hypophosphatemia; Translations: [Other disorders of phosphorus metabolism] 01-04-2023 Chronic Other nutritional; endocrine; and metabolic disorders (4 sources) Other disorders of phosphorus metabolism; 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] 12-27-2022 Chronic Other nutritional; endocrine; and metabolic disorders (4 sources) Obese class I; Translations: [Class 1 obesity] 05-20-2024 Chronic Other nutritional; endocrine; and metabolic disorders (9 sources) History of diabetes mellitus type 1; Translations: [Personal history of other endocrine, nutritional and metabolic disease] 10-16-2023 Episodic Other nutritional; endocrine; and metabolic disorders (5 sources) Personal history of other endocrine, nutritional and metabolic disease; Translations: [Personal history of other endocrine, metabolic, and immunity disorders] 10-16-2023 Episodic Other upper respiratory disease (18 sources) Seasonal allergy; Translations: [Other seasonal allergic rhinitis] Onset: 01-02-2017 01-02-2017 Chronic Other upper respiratory infections (1 source) Bacterial sinusitis; Translations: [Chronic sinusitis, unspecified] 08-18-2024 Chronic Other upper respiratory infections (20 sources) Viral upper respiratory tract infection; Translations: [Acute upper respiratory infection, unspecified] 05-17-2020 Episodic Residual codes; unclassified (1 source) Patient's other noncompliance with medication regimen; Translations: [Patient's other noncompliance with medication regimen] Onset: 02-10-2021 Episodic Residual codes; unclassified (1 source) Finding related to substance use; Translations: [Personal history of other specified conditions] Episodic Residual codes; unclassified (18 sources) Insomnia; Translations: [Insomnia, unspecified] 02-07-2022 Episodic Residual codes; unclassified (18 sources) Noncompliance with treatment; Translations: [Noncompliance] 08-13-2023 Episodic Residual codes; unclassified (2 sources) Pain; Translations: [Pain, unspecified] 03-25-2024 Episodic Substance-related disorders (15 sources) Nicotine dependence, unspecified, uncomplicated; Translations: [Cannabis hyperemesis syndrome co-occurrent and due to cannabis abuse] Onset: 02-10-2021 01-04-2023 Chronic Superficial injury; contusion (7 sources) Metal foreign body in lip; Translations: [Superficial foreign body of lip, initial encounter] 11-11-2023 Episodic Thyroid disorders (20 sources) Veronica thyroiditis; Translations: [Autoimmune thyroiditis] Onset: 01-11-2016 01-11-2016 Chronic Unclassified (8 sources) Contraception care education ; Translations: [Other specified counseling] Onset: 02-20-2017 02-20-2017 Unclassified (3 sources) Insertion of subcutaneous contraceptive done; Translations: [Encounter for surveillance of other contraceptives] Onset: 04-17-2017 04-21-2017 Unclassified (3 sources) Removal of subcutaneous contraceptive done; Translations: [Encounter for surveillance of other contraceptives] Onset: 04-17-2017 04-21-2017 Unclassified (4 sources) Cannabis use in remission 01-13-2020 Unclassified (1 source) Obesity, class 1; Translations: [Obesity, class 1] Onset: 05-18-2024 Urinary tract infections (20 sources) Urinary tract infectious disease; Translations: [Urinary tract infection, site not specified] 12-24-2022 Episodic Past or Other Problems Problem Classification Problem Date Documented Da te Episodic/Chronic Allergic reactions (11 sources) Dermatitis, unspecified; Translations: [Dermatitis, unspecified] Onset: 03-28-2017 03-28-2017 Episodic Intestinal infection (5 sources) Viral gastroenteritis; Translations: [Viral intestinal infection, unspecified] Onset: 05-18-2024 05-20-2024 Episodic Mycoses (11 sources) Mycosis; Translations: [Candidiasis, unspecified] Onset: 03-28-2017 03-28-2017 Episodic Other gastrointestinal disorders (1 source) Diarrhea, unspecified; Translations: [Diarrhea, unspecified] Onset: 05-18-2024 Episodic Other screening for suspected conditions (not mental disorders or infectious disease) (4 sources) Patient encounter status; Translations: [Encounter for screening for lipoid disorders] Onset: 12-24-2023 12-24-2023 Episodic Residual codes; unclassified (1 source) Pain, unspecified; Translations: [Pain] Onset: 03-25-2024 Episodic Spondylosis; intervertebral disc disorders; other back problems (20 sources) Acute low back pain; Translations: [Acute midline low back pain without sciatica] Onset: 07-29-2016 Resolved: 03-04-2019 Episodic Sprains and strains (20 sources) Strain of back muscle; Translations: [Strain of muscle and tendon of back wall of thorax, initial encounter] Onset: 07-29-2016 Resolved: 03-04-2019 Episodic Unclassified (17 sources) Acute liver injury 01-14-2020 Results Test Name Value Interpretation Reference Range Facility Absolute lymphocyte countOrd ered By: Zaida Hoff on 11-28-2024 Lymphocytes Auto (Unsp spec) [#/Vol] 1.29 10*3/uL 0.83-4.51 [facility] Absolute neutrophil countOrd ered By: Zaida Hoff on 11-28-2024 Neutrophils (Bld) [#/Vol] 10.3 10*3/uL High 2.0-7.7 [facility] Anion gap in Serum or Plasma Ordered By: Zaida Hoff on 11-28-2024 Anion gap [Moles/Vol] 10 mmol/L 5-15 [facility] Automated lymphocyte count a s percentage of total leukocytesOrdered By: Zaida Hoff on 11-28-2024 Lymphocytes/100 WBC Auto (Unsp spec) 10.4 % Low 19-41 [facility] BUN/creatinine ratioOrdered By: Zaida Hoff on 11-28-2024 Urea nitrogen/Creatinine [Mass ratio] 11.1 mg/mg 10-20 [facility] Basic Metabolic Profile (BMP )on 11-28-2024 BUN Normal 4-19 [facility] Comment on above: Order Comment: Call MD with results STAT Result Comment: Canc elled via OM: MD Ordered Performed By: #### L [id number], [id number], [id number], L501.2450, L100.0100 #### [facility] [address] [place], [address] BUN/CRE Normal 10-20 [facility] Comment on above: Order Comment: Call MD with results STAT Result Comment: Canc elled via OM: MD Ordered Performed By: #### L [id number], [id number], [id number], L501.2450, L100.0100 #### [facility] [address] [place], [address] Calcium Normal 7.6-11.0 [facility] Comment on above: Order Comment: Call MD with results STAT Result Comment: Canc elled via OM: MD Ordered Performed By: #### L [id number], [id number], [id number], [id number], L100.0100 #### [facility] [address] [place], [address] CL Normal 98-108 [facility] Comment on above: Order Comment: Call MD with results STAT Result Comment: Canc elled via OM: MD Ordered Performed By: #### L [id number], [id number], [id number], [id number], L100.0100 #### [facility] [address] [place], [address] CO2 Normal 21.0-32.0 [facility] Comment on above: Order Comment: Call MD with results STAT Result Comment: Canc elled via OM: MD Ordered Performed By: #### L [id number], [id number], [id number], [id number], L100.0100 #### [facility] [address] [place], [address] CREAT,SERUM Normal 0.70-1.20 [facility] Comment on above: Order Comment: Call MD with results STAT Result Comment: Canc elled via OM: MD Ordered Performed By: #### L [id number], [id number], [id number], [id number], L100.0100 #### [facility] [address] [place], [address] eGFR Normal >60 [facility] Comment on above: Order Comment: Call MD with results STAT Result Comment: Canc elled via OM: MD Ordered Performed By: #### L [id number], [id number], [id number], [id number], L100.0100 #### [facility] [address] [place], [address] GAP Normal 5-15 [facility] Comment on above: Order Comment: Call MD with results STAT Result Comment: Canc elled via OM: MD Ordered Performed By: #### L [id number], [id number], [id number], [id number], L100.0100 #### [facility] [address] [place], [address] GLU Normal 70-99 [facility] Comment on above: Order Comment: Call MD with results STAT Result Comment: Canc elled via OM: MD Ordered Performed By: #### L [id number], [id number], [id number], [id number], L100.0100 #### [facility] [address] [place], [address] Potassium Normal 3.3-5.1 [facility] Comment on above: Order Comment: Call MD with results STAT Result Comment: Canc elled via OM: MD Ordered Performed By: #### L [id number], [id number], [id number], [id number], L100.0100 #### [facility] [address] [place], [address] Basic Metabolic Profile (BMP) Normal 133-145 [facility] Comment on above: Order Comment: Call MD with results STAT Result Comment: Can elled via OM: MD Ordered Performed By: #### L [id number], [id number], [id number], [id number], L100.0100 #### [facility] [address] [place], [address] BUN Normal 4-19 [facility] Comment on above: Order Comment: Call MD with results STAT Result Comment: Can elled via OM: MD Ordered Performed By: #### L 501.6901, L700.6800, L500.4050, L501.2450, L100.0100 #### [facility] [address] [place], [address] BUN/CRE Normal 10-20 [facility] Comment on above: Order Comment: Call MD with results STAT Result Comment: Can elled via OM: MD Ordered Performed By: #### L 501.6901, L700.6800, L500.4050, L501.2450, L100.0100 #### [facility] [address] [place], [address] Calcium Normal 7.6-11.0 [facility] Comment on above: Order Comment: Call MD with results STAT Result Comment: Can elled via OM: MD Ordered Performed By: #### L 501.6901, L700.6800, L500.4050, L501.2450, L100.0100 #### [facility] [address] [place], [address] CL Normal 98-108 [facility] Comment on above: Order Comment: Call MD with results STAT Result Comment: Canc elled via OM: MD Ordered Performed By: #### L 501.6901, L700.6800, L500.4050, L501.2450, L100.0100 #### [facility] [address] [place], [address] CO2 Normal 21.0-32.0 [facility] Comment on above: Order Comment: Call MD with results STAT Result Comment: Can elled via OM: MD Ordered Performed By: #### L 501.6901, L700.6800, L500.4050, L501.2450, L100.0100 #### [facility] [address] [place], [address] CREAT,SERUM Normal 0.70-1.20 [facility] Comment on above: Order Comment: Call MD with results STAT Result Comment: Can elled via OM: MD Ordered Performed By: #### L 501.6901, L700.6800, L500.4050, L501.2450, L100.0100 #### [facility] [address] [place], [address] eGFR Normal >60 [facility] Comment on above: Order Comment: Call MD with results STAT Result Comment: Canc elled via OM: MD Ordered Performed By: #### L 501.6901, L700.6800, L500.4050, L501.2450, L100.0100 #### [facility] [address] [place], [address] GAP Normal 5-15 [facility] Comment on above: Order Comment: Call MD with results STAT Result Comment: Can elled via OM: MD Ordered Performed By: #### L 501.6901, L700.6800, L500.4050, L501.2450, L100.0100 #### [facility] [address] [place], [address] GLU Normal 70-99 [facility] Comment on above: Order Comment: Call MD with results STAT Result Comment: Sharon elled via OM: MD Ordered Performed By: #### L 501.6901, L700.6800, L500.4050, L501.2450, L100.0100 #### [facility] [address] [place], [address] Potassium Normal 3.3-5.1 [facility] Comment on above: Order Comment: Call MD with results STAT Result Comment: Sharon elled via OM: MD Ordered Performed By: #### L 501.6901, L700.6800, L500.4050, L501.2450, L100.0100 #### [facility] [address] [place], [address] Basic Metabolic Profile (BMP) Normal 133-145 [facility] Comment on above: Order Comment: Call MD with results STAT Result Comment: Sharon de souzaed via OM: MD Ordered Performed By: #### L 501.6901, L700.6800, L500.4050, L501.2450, L100.0100 #### [facility] [address] [place], [address] BUN/CRE 11.1 RATIO Normal 10-20 [facility] Comment on above: Order Comment: Call MD with results STAT Performed By: #### L 501.6901, L700.6800, L500.4050, L501.2450, L100.0100 #### [facility] [address] [place], [address] Calcium [Mass/Vol] 7.1 mg/dL Low 7.6-11.0 [facility] Comment on above: Order Comment: Call with results STAT Performed By: #### L 501.6901, L700.6800, L500.4050, L501.2450, L100.0100 #### [facility] [address] [place], [address] Chloride [Moles/Vol] 106 mmol/L Normal 98-108 [facility] Comment on above: Order Comment: Call MD with results STAT Performed By: #### L 501.6901, L700.6800, L500.4050, L501.2450, L100.0100 #### [facility] [address] [place], [address] CO2 [Moles/Vol] 19.1 mmol/L Low 21.0-32.0 [facility] Comment on above: Order Comment: Call MD with results STAT Performed By: #### L 501.6901, L700.6800, L500.4050, L501.2450, L100.0100 #### [facility] [address] [place], [address] Creatinine [Mass/Vol] 0.46 mg/dL Low 0.70-1.20 [facility] Comment on above: Order Comment: Call MD with results STAT Performed By: #### L 501.6901, L700.6800, L500.4050, L501.2450, L100.0100 #### [facility] [address] [place], [address] ECRCL 166.47 ml/min Normal 50-250 [facility] Comment on above: Order Comment: Call MD with results STAT Performed By: #### L 501.6901, L700.6800, L500.4050, L501.2450, L100.0100 #### [facility] [address] [place], [address] GAP 10 Normal 5-15 [facility] Comment on above: Order Comment: Call MD with results STAT Performed By: #### L 501.6901, L700.6800, L500.4050, L501.2450, L100.0100 #### [facility] [address] [place], [address] GFR/1.73 sq M.predicted among non-blacks MDRD (S/P/Bld) [Vol rate/Area] 135 mL/min/{1.73_m2} Normal >60 [facility] Comment on above: Order Comment: Call MD with results STAT Result Comment: mL/m in/1.73m2 CKD-EPI Creatinine Equation (2020) Performed By: #### L 501.6901, L700.6800, L500.4050, L501.2450, L100.0100 #### [facility] [address] [place], [address] Glucose [Mass/Vol] 156 mg/dL High 70-99 [facility] Comment on above: Order Comment: Call MD with results STAT Performed By: #### L 501.6901, L700.6800, L500.4050, L501.2450, L100.0100 #### [facility] [address] [place], [address] Potassium [Moles/Vol] 2.9 mmol/L Low 3.3-5.1 [facility] Comment on above: Order Comment: Call MD with results STAT Result Comment: Hemo lysis present, Results??could be affected. ?? Performed By: #### L 501.6901, L700.6800, L500.4050, L501.2450, L100.0100 #### [facility] [address] [place], [address] Sodium [Moles/Vol] 135 mmol/L Normal 133-145 [facility] Comment on above: Order Comment: Call MD with results STAT Performed By: #### L 501.6901, L700.6800, L500.4050, L501.2450, L100.0100 #### [facility] [address] [place], [address] Urea nitrogen [Mass/Vol] 5 mg/dL Normal 4-19 [facility] Comment on above: Order Comment: Call MD with results STAT Performed By: #### L 501.6901, L700.6800, L500.4050, L501.2450, L100.0100 #### [facility] [address] [place], [address] BUN Normal 4-19 [facility] Comment on above: Result Comment: over lapping order, ok to cancel as by [email or web address] Performed By: #### L 501.6901, L700.6800, L500.4050, L501.2450, L100.0100 #### [facility] [address] [place], [address] BUN/CRE Normal 10-20 [facility] Comment on above: Result Comment: over lapping order, ok to cancel as by mwitucki Performed By: #### L 501.6901, L700.6800, L500.4050, L501.2450, L100.0100 #### [facility] [address] [place], [address] Calcium Normal 7.6-11.0 [facility] Comment on above: Result Comment: over lapping order, ok to cancel as by mwitucki Performed By: #### L 501.6901, L700.6800, L500.4050, L501.2450, L100.0100 #### [facility] [address] [place], [address] CL Normal 98-108 [facility] Comment on above: Result Comment: over lapping order, ok to cancel as by mwitucki Performed By: #### L 501.6901, L700.6800, L500.4050, L501.2450, L100.0100 #### [facility] [address] [place], [address] CO2 Normal 21.0-32.0 [facility] Comment on above: Result Comment: over lapping order, ok to cancel as by mwitucki Performed By: #### L 501.6901, L700.6800, L500.4050, L501.2450, L100.0100 #### [facility] [address] [place], [address] CREAT,SERUM Normal 0.70-1.20 [facility] Comment on above: Result Comment: over lapping order, ok to cancel as by [email or web address] Performed By: #### L 501.6901, L700.6800, L500.4050, L501.2450, L100.0100 #### [facility] [address] [place], [address] eGFR Normal >60 [facility] Comment on above: Result Comment: over lapping order, ok to cancel as by mwitucki Performed By: #### L 501.6901, L700.6800, L500.4050, L501.2450, L100.0100 #### [facility] [address] [place], [address] GAP Normal 5-15 [facility] Comment on above: Result Comment: over lapping order, ok to cancel as by mwitucki Performed By: #### L 501.6901, L700.6800, L500.4050, L501.2450, L100.0100 #### [facility] [address] [place], [address] GLU Normal 70-99 [facility] Comment on above: Result Comment: over lapping order, ok to cancel as by mwitucki Performed By: #### L 501.6901, L700.6800, L500.4050, L501.2450, L100.0100 #### [facility] [address] [place], [address] Potassium Normal 3.3-5.1 [facility] Comment on above: Result Comment: over lapping order, ok to cancel as by mwitucki Performed By: #### L 501.6901, L700.6800, L500.4050, L501.2450, L100.0100 #### [facility] [address] [place], [address] Basic Metabolic Profile (BMP) Normal 133-145 [facility] Comment on above: Result Comment: over lapping order, ok to cancel as by [email or web address] Performed By: #### L 501.6901, L700.6800, L500.4050, L501.2450, L100.0100 #### [facility] [address] [place], [address] BUN/CRE 16.4 RATIO Normal 10-20 [facility] Comment on above: Order Comment: Call MD with results STAT Performed By: #### L 501.6901, L700.6800, L500.4050, L501.2450, L100.0100 #### [facility] [address] [place], [address] Calcium [Mass/Vol] 7.1 mg/dL Low 7.6-11.0 [facility] Comment on above: Order Comment: Call MD with results STAT Performed By: #### L 501.6901, L700.6800, L500.4050, L501.2450, L100.0100 #### [facility] [address] [place], [address] Chloride [Moles/Vol] 108 mmol/L Normal 98-108 [facility] Comment on above: Order Comment: Call MD with results STAT Performed By: #### L 501.6901, L700.6800, L500.4050, L501.2450, L100.0100 #### [facility] [address] [place], [address] CO2 [Moles/Vol] 15.6 mmol/L Low 21.0-32.0 [facility] Comment on above: Order Comment: Call MD with results STAT Performed By: #### L 501.6901, L700.6800, L500.4050, L501.2450, L100.0100 #### [facility] [address] [place], [address] Creatinine [Mass/Vol] 0.45 mg/dL Low 0.70-1.20 [facility] Comment on above: Order Comment: Call MD with results STAT Performed By: #### L 501.6901, L700.6800, L500.4050, L501.2450, L100.0100 #### [facility] [address] [place], [address] ECRCL 157.25 ml/min Normal 50-250 [facility] Comment on above: Order Comment: Call MD with results STAT Performed By: #### L 501.6901, L700.6800, L500.4050, L501.2450, L100.0100 #### [facility] [address] [place], [address] GAP 14 Normal 5-15 [facility] Comment on above: Order Comment: Call MD with results STAT Performed By: #### L 501.6901, L700.6800, L500.4050, L501.2450, L100.0100 #### [facility] [address] [place], [address] GFR/1.73 sq M.predicted among non-blacks MDRD (S/P/Bld) [Vol rate/Area] 136 mL/min/{1.73_m2} Normal >60 [facility] Comment on above: Order Comment: Call MD with results STAT Result Comment: mL/m in/1.73m2 CKD-EPI Creatinine Equation (2020) Performed By: #### L 501.6901, L700.6800, L500.4050, L501.2450, L100.0100 #### [facility] [address] [place], [address] Glucose [Mass/Vol] 165 mg/dL High 70-99 [facility] Comment on above: Order Comment: Call MD with results STAT Performed By: #### L 501.6901, L700.6800, L500.4050, L501.2450, L100.0100 #### [facility] [address] [place], [address] Potassium [Moles/Vol] 2.9 mmol/L Low 3.3-5.1 [facility] Comment on above: Order Comment: Call MD with results STAT Performed By: #### L 501.6901, L700.6800, L500.4050, L501.2450, L100.0100 #### [facility] [address] [place], [address] Sodium [Moles/Vol] 138 mmol/L Normal 133-145 [facility] Comment on above: Order Comment: Call MD with results STAT Performed By: #### L 501.6901, L700.6800, L500.4050, L501.2450, L100.0100 #### [facility] [address] [place], [address] Urea nitrogen [Mass/Vol] 7 mg/dL Normal 4-19 [facility] Comment on above: Order Comment: Call MD with results STAT Performed By: #### L 501.6901, L700.6800, L500.4050, L501.2450, L100.0100 #### [facility] [address] [place], [address] BUN/CRE 17.4 RATIO Normal 10-20 [facility] Comment on above: Order Comment: Call MD with results STAT Performed By: #### L 501.6901, L700.6800, L500.4050, L501.2450, L100.0100 #### [facility] [address] [place], [address] Calcium [Mass/Vol] 7.3 mg/dL Low 7.6-11.0 [facility] Comment on above: Order Comment: Call MD with results STAT Performed By: #### L 501.6901, L700.6800, L500.4050, L501.2450, L100.0100 #### [facility] [address] [place], [address] Chloride [Moles/Vol] 110 mmol/L High 98-108 [facility] Comment on above: Order Comment: Call MD with results STAT Performed By: #### L 501.6901, L700.6800, L500.4050, L501.2450, L100.0100 #### [facility] [address] [place], [address] CO2 [Moles/Vol] 16.5 mmol/L Low 21.0-32.0 [facility] Comment on above: Order Comment: Call MD with results STAT Performed By: #### L 501.6901, L700.6800, L500.4050, L501.2450, L100.0100 #### [facility] [address] [place], [address] Creatinine [Mass/Vol] 0.52 mg/dL Low 0.70-1.20 [facility] Comment on above: Order Comment: Call MD with results STAT Performed By: #### L 501.6901, L700.6800, L500.4050, L501.2450, L100.0100 #### [facility] [address] [place], [address] ECRCL 136.08 ml/min Normal 50-250 [facility] Comment on above: Order Comment: Call MD with results STAT Performed By: #### L 501.6901, L700.6800, L500.4050, L501.2450, L100.0100 #### [facility] [address] [place], [address] GAP 12 Normal 5-15 [facility] Comment on above: Order Comment: Call MD with results STAT Performed By: #### L 501.6901, L700.6800, L500.4050, L501.2450, L100.0100 #### [facility] [address] [place], [address] GFR/1.73 sq M.predicted among non-blacks MDRD (S/P/Bld) [Vol rate/Area] 131 mL/min/{1.73_m2} Normal >60 [facility] Comment on above: Order Comment: Call MD with results STAT Result Comment: mL/m in/1.73m2 CKD-EPI Creatinine Equation (2020) Performed By: #### L 501.6901, L700.6800, L500.4050, L501.2450, L100.0100 #### [facility] [address] [place], [address] Glucose [Mass/Vol] 179 mg/dL High 70-99 [facility] Comment on above: Order Comment: Call MD with results STAT Performed By: #### L 501.6901, L700.6800, L500.4050, L501.2450, L100.0100 #### [facility] [address] [place], [address] Potassium [Moles/Vol] 3.0 mmol/L Low 3.3-5.1 [facility] Comment on above: Order Comment: Call MD with results STAT Performed By: #### L 501.6901, L700.6800, L500.4050, L501.2450, L100.0100 #### [facility] [address] [place], [address] Sodium [Moles/Vol] 139 mmol/L Normal 133-145 [facility] Comment on above: Order Comment: Call MD with results STAT Performed By: #### L 501.6901, L700.6800, L500.4050, L501.2450, L100.0100 #### [facility] [address] [place], [address] Urea nitrogen [Mass/Vol] 9 mg/dL Normal 4-19 [facility] Comment on above: Order Comment: Call MD with results STAT Performed By: #### L 501.6901, L700.6800, L500.4050, L501.2450, L100.0100 #### [facility] [address] [place], [address] Basophil percentageOrdered B y: Zaidahannah Hoff on 11-28-2024 Basophils/100 WBC (Bld) 0.2 % 0-1 [facility] Bedside Glucoseon 11-28-2024 FINGERSTICK GLU 129 mg/dL High 74-106 [facility] Comment on above: Result Comment: FAY GEMENT OF PATIENT CARE PER NURSING PROTOCOL Performed By: #### L 501.6901, L700.6800, L500.4050, L501.2450, L100.0100 #### [facility] [address] [place], [address] FINGERSTICK GLU 134 mg/dL High 74-106 [facility] Comment on above: Result Comment: FAY GEMENT OF PATIENT CARE PER NURSING PROTOCOL Performed By: #### L 501.080 #### [facility] [address] [place], [address] FINGERSTICK GLU 132 mg/dL High 74-106 [facility] Comment on above: Result Comment: FAY GEMENT OF PATIENT CARE PER NURSING PROTOCOL Performed By: #### L 501.6901, L700.6800, L500.4050, L501.2450, L100.0100 #### [facility] [address] [place], [address] FINGERSTICK GLU 144 mg/dL High 74-106 [facility] Comment on above: Result Comment: FAY GEMENT OF PATIENT CARE PER NURSING PROTOCOL Performed By: #### L 9000.0810 #### [facility] [address] [place], [address] FINGERSTICK GLU 143 mg/dL High 74-106 [facility] Comment on above: Result Comment: FAY GEMENT OF PATIENT CARE PER NURSING PROTOCOL Performed By: #### L 501.6901, L700.6800, L500.4050, L501.2450, L100.0100 #### [facility] [address] [place], [address] FINGERSTICK GLU 120 mg/dL High 74-106 [facility] Comment on above: Result Comment: FAY GEMENT OF PATIENT CARE PER NURSING PROTOCOL Performed By: #### L 501.080 #### [facility] [address] [place], [address] FINGERSTICK GLU 126 mg/dL High 74-106 [facility] Comment on above: Result Comment: FAY GEMENT OF PATIENT CARE PER NURSING PROTOCOL Performed By: #### L 501.6901, L700.6800, L500.4050, L501.2450, L100.0100 #### [facility] [address] [place], [address] FINGERSTICK GLU 156 mg/dL High 74-106 [facility] Comment on above: Result Comment: FAY GEMENT OF PATIENT CARE PER NURSING PROTOCOL Performed By: #### L 501.080 #### [facility] [address] [place], [address] FINGERSTICK GLU 155 mg/dL High 74-106 [facility] Comment on above: Result Comment: FAY GEMENT OF PATIENT CARE PER NURSING PROTOCOL Performed By: #### L 9000.0810 #### [facility] [address] [place], [address] FINGERSTICK GLU 190 mg/dL High 74-106 [facility] Comment on above: Result Comment: FAY ARCINIEGA OF PATIENT CARE PER NURSING PROTOCOL Performed By: #### L 501.6901, L700.6800, L500.4050, L501.2450, L100.0100 #### [facility] [address] [place], [address] Beta-Hydroxbytyrateon 2024 BETA-HYDROXYBUT 2.9 mmol/L Normal 0.0-0.3 [facility] Comment on above: Performed By: #### L 501.6901, L700.6800, L500.4050, L501.2450, L100.0100 #### [facility] [address] [place], [address] BETA-HYDROXYBUT 1.3 mmol/L Normal 0.0-0.3 [facility] Comment on above: Performed By: #### L 9000.0810 #### [facility] [address] [place], [address] Beta-hydroxybutyrateOrdered By: Jackeline Aguilar on 11-28-2024 Beta hydroxybutyrate [Mass/Vol] 2.9 mmol/L 0.0-0.3 [facility] CBC W/Diff, Automatedon 11-18 Absolute Lymph 1.29 X10 3/uL Normal 0.83-4.51 [facility] Comment on above: Performed By: #### L 501.6901, L700.6800, L500.4050, L501.2450, L100.0100 #### [facility] [address] [place], [address] Absolute Neut 10.3 X10 3/uL High 2.0-7.7 [facility] Comment on above: Performed By: #### L 501.6901, L700.6800, L500.4050, L501.2450, L100.0100 #### [facility] [address] [place], [address] Basophils/100 WBC (Bld) 0.2 % Normal 0-1 [facility] Comment on above: Performed By: #### L 501.6901, L700.6800, L500.4050, L501.2450, L100.0100 #### [facility] [address] [place], [address] Eosinophils/100 WBC (Bld) 0.0 % Normal 0-5 [facility] Comment on above: Performed By: #### L 501.6901, L700.6800, L500.4050, L501.2450, L100.0100 #### [facility] [address] [place], [address] Erythrocyte distribution width (RBC) [Ratio] 12.7 % Normal 11.6-14.6 [facility] Comment on above: Performed By: #### L 501.6901, L700.6800, L500.4050, L501.2450, L100.0100 #### [facility] [address] [place], [address] Hematocrit (Bld) [Volume fraction] 34.0 % Low 37-47 [facility] Comment on above: Performed By: #### L 501.6901, L700.6800, L500.4050, L501.2450, L100.0100 #### [facility] [address] [place], [address] Hemoglobin (Bld) [Mass/Vol] 11.5 g/dL Low 12.0-15.0 [facility] Comment on above: Performed By: #### L 501.6901, L700.6800, L500.4050, L501.2450, L100.0100 #### [facility] [address] [place], [address] IG% 0.300 Normal 0.0-0.9 [facility] Comment on above: Result Comment: IG% - Immature Granulocytes (promyelocytes, myelocytes and metamyelocytes) > 1% indicates that a LEFT SHIFT is Present. Performed By: #### L 501.6901, L700.6800, L500.4050, L501.2450, L100.0100 #### [facility] [address] [place], [address] Lymphocytes/100 WBC (Bld) 10.4 % Low 19-41 [facility] Comment on above: Performed By: #### L 501.6901, L700.6800, L500.4050, L501.2450, L100.0100 #### [facility] [address] [place], [address] MCH (RBC) [Entitic mass] 28.9 pg Normal 27.0-32.0 [facility] Comment on above: Performed By: #### L 501.6901, L700.6800, L500.4050, L501.2450, L100.0100 #### [facility] [address] [place], [address] MCHC (RBC) [Mass/Vol] 33.8 g/dL Normal 32-36 [facility] Comment on above: Performed By: #### L 501.6901, L700.6800, L500.4050, L501.2450, L100.0100 #### [facility] [address] [place], [address] MCV (RBC) [Entitic vol] 85.4 fL Normal 81-99 [facility] Comment on above: Performed By: #### L 501.6901, L700.6800, L500.4050, L501.2450, L100.0100 #### [facility] [address] [place], [address] Monocytes/100 WBC (Bld) 6.7 % Normal 0-10 [facility] Comment on above: Performed By: #### L 501.6901, L700.6800, L500.4050, L501.2450, L100.0100 #### [facility] [address] [place], [address] Neutrophils/100 WBC (Bld) 82.4 % High 47-70 [facility] Comment on above: Performed By: #### L 501.6901, L700.6800, L500.4050, L501.2450, L100.0100 #### [facility] [address] [place], [address] Nucleated RBC (Bld) [#/Vol] 0 10*3/uL Normal 0-5 [facility] Comment on above: Performed By: #### L 501.6901, L700.6800, L500.4050, L501.2450, L100.0100 #### [facility] [address] [place], [address] Platelet mean volume (Bld) [Entitic vol] 8.7 fL Normal 6.2-12.0 [facility] Comment on above: Performed By: #### L 501.6901, L700.6800, L500.4050, L501.2450, L100.0100 #### [facility] [address] [place], [address] Platelets (Bld) [#/Vol] 296 10*3/uL Normal 150-450 [facility] Comment on above: Performed By: #### L 501.6901, L700.6800, L500.4050, L501.2450, L100.0100 #### [facility] [address] [place], [address] RBC (Bld) [#/Vol] 3.98 10*6/uL Low 4.2-5.4 [facility] Comment on above: Performed By: #### L 501.6901, L700.6800, L500.4050, L501.2450, L100.0100 #### [facility] [address] [place], [address] RDW SD 39.4 fl Normal 35.1-43.9 [facility] Comment on above: Performed By: #### L 501.6901, L700.6800, L500.4050, L501.2450, L100.0100 #### [facility] [address] [place], [address] WBC (Bld) [#/Vol] 12.4 10*3/uL High 4.4-11.0 [facility] Comment on above: Performed By: #### L 501.6901, L700.6800, L500.4050, L501.2450, L100.0100 #### [facility] [address] [place], [address] Carbon dioxide, total [Moles /volume] in Central venous bloodOrdered By: Zaida Hoff on 11-28-2024 CO2 [Moles/Vol] 19.1 mmol/L Low 21.0-32.0 [facility] Chloride assayOrdered By: Daksha Hoff on 11-28-2024 Chloride [Moles/Vol] 106 mmol/L 98-108 [facility] Eosinophil percentageOrdered By: Zaida Hoff on 11-28-2024 Eosinophils/100 WBC (Bld) 0.0 % 0-5 [facility] Erythrocyte distribution wid th ratioOrdered By: Zaida Hoff on 11-28-2024 Erythrocyte distribution width (RBC) [Ratio] 12.7 % 11.6-14.6 [facility] Erythrocyte distribution wid th standard deviationOrdered By: Zaida Hoff on 11-28-2024 Erythrocyte distribution width (RBC) [Ratio] 39.4 fl 35.1-43.9 [facility] Glomerular filtration rate ( GFR) estimation/1.73 sq m using serum, plasma, or whole bOrdered By: Zaida Hoff on 11-28-2024 GFR/1.73 sq M.predicted among non-blacks MDRD (S/P/Bld) [Vol rate/Area] 135 mL/min/{1.73_m2} >60 [facility] Comment on above: mL/min/1.73m2 CKD-EP I Creatinine Equation (2020) [facility] de[facility]dered By: Damien Villagran on 11-28-2024 Glucose [Mass/Vol] 129 mg/dL High 74-106 [facility] Comment on above: MANAGEMENT OF PATIEN T CARE PER NURSING PROTOCOL Hematocrit Auto (Bld) [Volum e fraction]Ordered By: Zaida Hoff on 11-28-2024 Hematocrit (Bld) [Volume fraction] 34.0 % Low 37-47 [facility] Hemoglobin A1con 11-28-2024 HbA1c (Bld) [Mass fraction] 12.4 % High <=5.6 [facility] Comment on above: Result Comment: Norm al < 5.7 % Prediabetic 5.7 - 6.4 % Diabetic >or= 6.5 % Please note range changes. Performed By: #### L 501.6901, L700.6800, L500.4050, L501.2450, L100.0100 #### [facility] [address] [place] [address]. [place], [place], [id number] Hemoglobin A1c percentageOrd ered By: Zaida Hoff on 11-28-2024 HbA1c (Bld) [Mass fraction] 12.4 % High <5.7 [facility] Comment on above: Normal < 5.7 % Predi abetic 5.7 - 6.4 % Diabetic >or= 6.5 % Please note range changes. Hemoglobin measurementOrdere d By: Zaida Hoff on 11-28-2024 Hemoglobin (Bld) [Mass/Vol] 11.5 g/dL Low 12.0-15.0 [facility] Immature granulocytes/100 WB C Auto (Bld)Ordered By: Zaida Hoff on 11-28-2024 Immature granulocytes/100 WBC (Bld) 0.300 % 0.0-0.9 [facility] Comment on above: IG% - Immature Granu locytes (promyelocytes, myelocytes and metamyelocytes) > 1% indicates that a LEFT SHIFT is Present. MCV (mean corpuscular volume ) determinationOrdered By: Zaida Hoff on 11-28-2024 MCV (RBC) [Entitic vol] 85.4 fL 81-99 [facility] Magnesiumon 11-28-2024 Magnesium [Mass/Vol] 1.8 mg/dL Normal 1.5-2.2 [facility] Comment on above: Performed By: #### L 501.6901, L700.6800, L500.4050, L501.2450, L100.0100 #### [facility] [address] [place], [address] Magnesium measurement (mass/ volume)Ordered By: Zaida Hoff on 11-28-2024 Magnesium (Unsp spec) [Mass/Vol] 1.8 mg/dL 1.5-2.2 [facility] Mean corpuscular hemoglobin (MCH) determinationOrdered By: Zaida Hoff on 11-28-2024 MCH (RBC) [Entitic mass] 28.9 pg 27.0-32.0 [facility] Mean corpuscular hemoglobin concentration (MCHC) determinationOrdered By: Zaida Hoff on 11-28-2024 MCHC (RBC) [Mass/Vol] 33.8 g/dL 32-36 [facility] Mean platelet volume determi nationOrdered By: Zaida Hoff on 11-28-2024 Platelet mean volume (Bld) [Entitic vol] 8.7 fL 6.2-12.0 [facility] Monocyte percentageOrdered B y: Zaida Hoff on 11-28-2024 Monocytes/100 WBC (Bld) 6.7 % 0-10 [facility] Neutrophil percentageOrdered By: Zaida Hoff on 11-28-2024 Neutrophils/100 WBC (Bld) 82.4 % High 47-70 [facility] Nucleated red blood cell per centageOrdered By: Zaida Hoff on 11-28-2024 Nucleated RBC/100 WBC (Bld) [Ratio] 0 % 0-5 [facility] Platelet countOrdered By: Daksha Hoff on 11-28-2024 Platelets (Bld) [#/Vol] 296 10*3/uL 150-450 [facility] Potassium measurement (mass/ volume)Ordered By: Zaida Hoff on 11-28-2024 Potassium (Unsp spec) [Mass/Vol] 2.9 mmol/L Low 3.3-5.1 [facility] Comment on above: Hemolysis present, R esults could be affected. RBC Auto (Bld) [#/Vol]Ordere d By: Zaida Hoff on 11-28-2024 RBC (Bld) [#/Vol] 3.98 10*6/uL Low 4.2-5.4 [facility] Serum creatinine measurement (mass/volume)Ordered By: Zaida Hoff on 11-28-2024 Creatinine [Mass/Vol] 0.46 mg/dL Low 0.70-1.20 [facility] Serum glucose measurement (m ass/volume)Ordered By: Zaida Hoff on 11-28-2024 Glucose [Mass/Vol] 156 mg/dL High 70-99 [facility] Serum or plasma calcium edward urement (mass/volume)Ordered By: Zaida Hoff on 11-28-2024 Calcium [Mass/Vol] 7.1 mg/dL Low 7.6-11.0 [facility] Serum or plasma urea nitroge n measurement (mass/volume)Ordered By: Zaida Hoff on 11-28-2024 Urea nitrogen [Mass/Vol] 5 mg/dL 4-19 [facility] Sodium levelOrdered By: Jett Hoff on 11-28-2024 Sodium [Moles/Vol] 135 mmol/L 133-145 [facility] White blood cell (WBC) count Ordered By: Zaida Hoff on 11-28-2024 WBC (Bld) [#/Vol] 12.4 10*3/uL High 4.4-11.0 [facility] 12 Lead EKGon 11-27-2024 [address] [facility] [address] [place] [address] 12 Lead EKG 11/27/24 1321 MR#: [id number] Acct: [id number] Name: KALIE DESIR Rep #: [id number] : 2000 24 From: Emery Hughes MD Attending Dr: Dr. Damien Villagran DO Status: DIS IN Ordering Dr: Ted Mcghee MD Date: 11/27/24 Location: ICU Sex: F C Admitted: 11/27/24 Test Reason : Blood Pressure : */* mmHG Vent. Rate : 123 BPM Atrial Rate : 123 BPM P-R Int : 130 ms QRS Dur : 80 ms QT Int : 350 ms P-R-T Axes : 68 78 34 degrees QTcB Int : 501 ms Sinus tachycardia Right atrial enlargement Borderline ECG Confirmed by Emery Hughes ([id number]), editorial manager ARELY OMALLEY ([id number]) on 11/29/2024 9:06:12 AM Referred By: Zaida Hoff Confirmed By: Emery Hughes 11/29/24905 Date Emery Hughes MD CC: Minnie Hodge; Dr. Damien Villagran DO; Dr. Zaida Hoff MD; Dr. Ted Mcghee MD Signed Normal [facility] Absolute lymphocyte countOrd ered By: Ted Mcghee on 11-27-2024 Lymphocytes Auto (Unsp spec) [#/Vol] 0.94 10*3/uL 0.83-4.51 [facility] Absolute neutrophil countOrd ered By: Ted Mcghee on 11-27-2024 Neutrophils (Bld) [#/Vol] 14.7 10*3/uL High 2.0-7.7 [facility] Anion gap in Serum or Plasma Ordered By: Ted Mcghee on 11-27-2024 Anion gap [Moles/Vol] 28 mmol/L High 5-15 [facility] Automated lymphocyte count a s percentage of total leukocytesOrdered By: Ted Mcghee on 11-27-2024 Lymphocytes/100 WBC Auto (Unsp spec) 5.9 % Low 19-41 [facility] BUN/creatinine ratioOrdered By: Ted Mcghee on 11-27-2024 Urea nitrogen/Creatinine [Mass ratio] 20.1 mg/mg High 10-20 [facility] Basic Metabolic Profile (BMP )on 11-27-2024 BUN/CRE 20.3 RATIO High 10-20 [facility] Comment on above: Order Comment: Call MD with results STAT Performed By: #### L 501.6901, L700.6800, L500.4050, L501.2450, L100.0100 #### [facility] [address] [place], [address] Calcium [Mass/Vol] 7.5 mg/dL Low 7.6-11.0 [facility] Comment on above: Order Comment: Call MD with results STAT Performed By: #### L 501.6901, L700.6800, L500.4050, L501.2450, L100.0100 #### [facility] [address] [place], [address] Chloride [Moles/Vol] 109 mmol/L High 98-108 [facility] Comment on above: Order Comment: Call MD with results STAT Performed By: #### L 501.6901, L700.6800, L500.4050, L501.2450, L100.0100 #### [facility] [address] [place], [address] CO2 [Moles/Vol] 13.8 mmol/L Low 21.0-32.0 [facility] Comment on above: Order Comment: Call MD with results STAT Performed By: #### L 501.6901, L700.6800, L500.4050, L501.2450, L100.0100 #### [facility] [address] [place], [address] Creatinine [Mass/Vol] 0.59 mg/dL Low 0.70-1.20 [facility] Comment on above: Order Comment: Call MD with results STAT Performed By: #### L 501.6901, L700.6800, L500.4050, L501.2450, L100.0100 #### [facility] [address] [place], [address] ECRCL 119.94 ml/min Normal 50-250 [facility] Comment on above: Order Comment: Call MD with results STAT Performed By: #### L 501.6901, L700.6800, L500.4050, L501.2450, L100.0100 #### [facility] [address] [place], [address] GAP 15 Normal 5-15 [facility] Comment on above: Order Comment: Call MD with results STAT Performed By: #### L 501.6901, L700.6800, L500.4050, L501.2450, L100.0100 #### [facility] [address] [place], [address] GFR/1.73 sq M.predicted among non-blacks MDRD (S/P/Bld) [Vol rate/Area] 128 mL/min/{1.73_m2} Normal >60 [facility] Comment on above: Order Comment: Call MD with results STAT Result Comment: mL/m in/1.73m2 CKD-EPI Creatinine Equation (2020) Performed By: #### L 501.6901, L700.6800, L500.4050, L501.2450, L100.0100 #### [facility] [address], [address] Glucose [Mass/Vol] 162 mg/dL High 70-99 [facility] Comment on above: Order Comment: Call MD with results STAT Performed By: #### L 501.6901, L700.6800, L500.4050, L501.2450, L100.0100 #### [facility] [address] [place], [address] Potassium [Moles/Vol] 3.4 mmol/L Normal 3.3-5.1 [facility] Comment on above: Order Comment: Call MD with results STAT Result Comment: Hemo lysis present, Results??could be affected. ?? Performed By: #### L 501.6901, L700.6800, L500.4050, L501.2450, L100.0100 #### [facility] [address] [place], [address] Sodium [Moles/Vol] 138 mmol/L Normal 133-145 [facility] Comment on above: Order Comment: Call MD with results STAT Performed By: #### L 501.6901, L700.6800, L500.4050, L501.2450, L100.0100 #### [facility] [address] [place], [address] Urea nitrogen [Mass/Vol] 12 mg/dL Normal 4-19 [facility] Comment on above: Order Comment: Call MD with results STAT Performed By: #### L 501.6901, L700.6800, L500.4050, L501.2450, L100.0100 #### [facility] [address] [place], [address] BUN/CRE 21.8 RATIO High 10-20 [facility] Comment on above: Order Comment: Call MD with results STAT Performed By: #### L 500.2500 #### [facility] [address] [place], [address] Calcium [Mass/Vol] 8.3 mg/dL Normal 7.6-11.0 [facility] Comment on above: Order Comment: Call MD with results STAT Performed By: #### L 500.2500 #### [facility] [address] [place], [address] Chloride [Moles/Vol] 106 mmol/L Normal 98-108 [facility] Comment on above: Order Comment: Call MD with results STAT Performed By: #### L 500.2500 #### [facility] [address] [place], [address] CO2 [Moles/Vol] 13.0 mmol/L Low 21.0-32.0 [facility] Comment on above: Order Comment: Call MD with results STAT Performed By: #### L 500.2500 #### [facility] [address] [place], [address] Creatinine [Mass/Vol] 0.68 mg/dL Low 0.70-1.20 [facility] Comment on above: Order Comment: Call MD with results STAT Performed By: #### L 500.2500 #### [facility] [address] [place], [address] ECRCL 104.06 ml/min Normal 50-250 [facility] Comment on above: Order Comment: Call MD with results STAT Performed By: #### L 500.2500 #### [facility] [address] [place], [address] GAP 20 High 5-15 [facility] Comment on above: Order Comment: Call MD with results STAT Performed By: #### L 500.2500 #### [facility] [address] [place], [address] GFR/1.73 sq M.predicted among non-blacks MDRD (S/P/Bld) [Vol rate/Area] 123 mL/min/{1.73_m2} Normal >60 [facility] Comment on above: Order Comment: Call MD with results STAT Result Comment: mL/m in/1.73m2 CKD-EPI Creatinine Equation (2020) Performed By: #### L 500.2500 #### [facility] [address] [place], [address] Glucose [Mass/Vol] 205 mg/dL High 70-99 [facility] Comment on above: Order Comment: Call MD with results STAT Performed By: #### L 500.2500 #### [facility] [address] [place], [address] Potassium [Moles/Vol] 3.7 mmol/L Normal 3.3-5.1 [facility] Comment on above: Order Comment: Call MD with results STAT Performed By: #### L 500.2500 #### [facility] [address] [place], [address] Sodium [Moles/Vol] 138 mmol/L Normal 133-145 [facility] Comment on above: Order Comment: Call MD with results STAT Performed By: #### L 500.2500 #### [facility] [address] [place], [address] Urea nitrogen [Mass/Vol] 15 mg/dL Normal 4-19 [facility] Comment on above: Order Comment: Call MD with results STAT Performed By: #### L 500.2500 #### [facility] [address] [place], [address] BUN Normal 4-19 [facility] Comment on above: Result Comment: DUPL ICATE ORDER. Performed By: #### L 500.2500 #### [facility] [address] [place], [address] BUN/CRE Normal 10-20 [facility] Comment on above: Result Comment: DUPL ICATE ORDER. Performed By: #### L 500.2500 #### [facility] [address] [place], [address] Calcium Normal 7.6-11.0 [facility] Comment on above: Result Comment: DUPL ICATE ORDER. Performed By: #### L 500.2500 #### [facility] [address] [place], [address] CL Normal 98-108 [facility] Comment on above: Result Comment: DUPL ICATE ORDER. Performed By: #### L 500.2500 #### [facility] [address] [place], [address] CO2 Normal 21.0-32.0 [facility] Comment on above: Result Comment: DUPL ICATE ORDER. Performed By: #### L 500.2500 #### [facility] [address] [place], [address] CREAT,SERUM Normal 0.70-1.20 [facility] Comment on above: Result Comment: DUPL ICATE ORDER. Performed By: #### L 500.2500 #### [facility] [address] [place], [address] eGFR Normal >60 [facility] Comment on above: Result Comment: DUPL ICATE ORDER. Performed By: #### L 500.2500 #### [facility] [address] [place], [address] GAP Normal 5-15 [facility] Comment on above: Result Comment: DUPL ICATE ORDER. Performed By: #### L 500.2500 #### [facility] [address] [place], [address] GLU Normal 70-99 [facility] Comment on above: Result Comment: DUPL ICATE ORDER. Performed By: #### L 500.2500 #### [facility] [address] [place], [address] Potassium Normal 3.3-5.1 [facility] Comment on above: Result Comment: DUPL ICATE ORDER. Performed By: #### L 500.2500 #### [facility] [address] [place], [address] Basic Metabolic Profile (BMP) Normal 133-145 [facility] Comment on above: Result Comment: DUPL ICATE ORDER. Performed By: #### L 500.2500 #### [facility] [address] [place], [address] BUN/CRE 20.1 RATIO High 10-20 [facility] Comment on above: Performed By: #### L 500.2500 #### [facility] [address] [place], [address] Calcium [Mass/Vol] 10.0 mg/dL Normal 7.6-11.0 [facility] Comment on above: Performed By: #### L 500.2500 #### [facility] [address] [place], [address] Chloride [Moles/Vol] 97 mmol/L Low 98-108 [facility] Comment on above: Performed By: #### L 500.2500 #### [facility] [address] [place], [address] CO2 [Moles/Vol] 11.2 mmol/L Low 21.0-32.0 [facility] Comment on above: Performed By: #### L 500.2500 #### [facility] [address] [place], [address] Creatinine [Mass/Vol] 0.82 mg/dL Normal 0.70-1.20 [facility] Comment on above: Performed By: #### L 500.2500 #### [facility] [address] [place], [address] ECRCL 87.69 ml/min Normal 50-250 [facility] Comment on above: Performed By: #### L 500.2500 #### [facility] [address] [place], [address] GAP 28 High 5-15 [facility] Comment on above: Performed By: #### L 500.2500 #### [facility] [address] [place], [address] GFR/1.73 sq M.predicted among non-blacks MDRD (S/P/Bld) [Vol rate/Area] 102 mL/min/{1.73_m2} Normal >60 [facility] Comment on above: Result Comment: mL/m in/1.73m2 CKD-EPI Creatinine Equation (2020) Performed By: #### L 500.2500 #### [facility] [address] [place], [address] Glucose [Mass/Vol] 335 mg/dL High 70-99 [facility] Comment on above: Performed By: #### L 500.2500 #### [facility] [address] [place], [address] Potassium [Moles/Vol] 3.6 mmol/L Normal 3.3-5.1 [facility] Comment on above: Performed By: #### L 500.2500 #### [facility] [address] [place], [address] Sodium [Moles/Vol] 136 mmol/L Normal 133-145 [facility] Comment on above: Performed By: #### L 500.2500 #### [facility] [address] [place], [address] Urea nitrogen [Mass/Vol] 16 mg/dL Normal 4-19 [facility] Comment on above: Performed By: #### L 500.2500 #### [facility] [address] [place], [address] Basophil percentageOrdered B y: Ted Mcghee on 11-27-2024 Basophils/100 WBC (Bld) 0.3 % 0-1 [facility] Bedside Glucoseon 11-27-2024 FINGERSTICK GLU 187 mg/dL High 74-106 [facility] Comment on above: Result Comment: FAY GEMENT OF PATIENT CARE PER NURSING PROTOCOL Performed By: #### L 9000.0810 #### [facility] [address] [place], [address] FINGERSTICK GLU 214 mg/dL High 74-106 [facility] Comment on above: Result Comment: FAY GEMENT OF PATIENT CARE PER NURSING PROTOCOL Performed By: #### L 501.6901, L700.6800, L500.4050, L501.2450, L100.0100 #### [facility] [address] [place], [address] FINGERSTICK GLU 126 mg/dL High 74-106 [facility] Comment on above: Result Comment: FAY GEMENT OF PATIENT CARE PER NURSING PROTOCOL Performed By: #### L 9000.0810 #### [facility] [address] [place], [address] FINGERSTICK GLU 139 mg/dL High 74-106 [facility] Comment on above: Result Comment: FAY GEMENT OF PATIENT CARE PER NURSING PROTOCOL Performed By: #### L 501.6901, L700.6800, L500.4050, L501.2450, L100.0100 #### [facility] [address] [place], [address] FINGERSTICK GLU 174 mg/dL High 74-106 [facility] Comment on above: Result Comment: FAY GEMENT OF PATIENT CARE PER NURSING PROTOCOL Performed By: #### L 9000.0810 #### [facility] [address] [place], [address] FINGERSTICK GLU 140 mg/dL High 74-106 [facility] Comment on above: Result Comment: FAY GEMENT OF PATIENT CARE PER NURSING PROTOCOL Performed By: #### L 501.6901, L700.6800, L500.4050, L501.2450, L100.0100 #### [facility] [address] [place], [address] FINGERSTICK GLU 155 mg/dL High 74-106 [facility] Comment on above: Result Comment: Dr Chirag barrios Followed MANAGEMENT OF PATIENT CARE PER NURSING PROTOCOL Performed By: #### L 501.6901, L700.6800, L500.4050, L501.2450, L100.0100 #### [facility] [address] [place], [address] FINGERSTICK GLU 181 mg/dL High 74-106 [facility] Comment on above: Result Comment: FAY GEMENT OF PATIENT CARE PER NURSING PROTOCOL Performed By: #### L 501.080 #### [facility] [address] [place], [address] FINGERSTICK GLU 199 mg/dL High 74-106 [facility] Comment on above: Result Comment: FAY GEMENT OF PATIENT CARE PER NURSING PROTOCOL Performed By: #### L 500.2500 #### [facility] [address] [place], [address] Beta-Hydroxbytyrateon 2024 BETA-HYDROXYBUT 5.8 mmol/L Normal 0.0-0.3 [facility] Comment on above: Performed By: #### L 500.2500 #### [facility] [address] [place], [address] Beta-hydroxybutyrateOrdered By: Ted Mcghee on 11-27-2024 Beta hydroxybutyrate [Mass/Vol] 5.8 mmol/L 0.0-0.3 [facility] Bilirubin Test strip Ql (U)O rdered By: Ted Mcghee on 11-27-2024 Bilirubin Ql (U) Negative Negative [facility] CBC W/Diff, Automatedon 05--2024 Absolute Lymph 0.94 X10 3/uL Normal 0.83-4.51 [facility] Comment on above: Performed By: #### L 500.2500 #### [facility] [address] [place], [address] Absolute Neut 14.7 X10 3/uL High 2.0-7.7 [facility] Comment on above: Performed By: #### L 500.2500 #### [facility] [address] [place], [address] Basophils/100 WBC (Bld) 0.3 % Normal 0-1 [facility] Comment on above: Performed By: #### L 500.2500 #### [facility] [address] [place], [address] Eosinophils/100 WBC (Bld) 0.0 % Normal 0-5 [facility] Comment on above: Performed By: #### L 500.2500 #### [facility] [address] [place], [address] Erythrocyte distribution width (RBC) [Ratio] 12.9 % Normal 11.6-14.6 [facility] Comment on above: Performed By: #### L 500.2500 #### [facility] [address] [place], [address] Hematocrit (Bld) [Volume fraction] 44.4 % Normal 37-47 [facility] Comment on above: Performed By: #### L 500.2500 #### [facility] [address] [place], [address] Hemoglobin (Bld) [Mass/Vol] 14.9 g/dL Normal 12.0-15.0 [facility] Comment on above: Performed By: #### L 500.2500 #### [facility] [address] [place], [address] IG% 0.400 Normal 0.0-0.9 [facility] Comment on above: Result Comment: IG% - Immature Granulocytes (promyelocytes, myelocytes and metamyelocytes) > 1% indicates that a LEFT SHIFT is Present. Performed By: #### L 500.2500 #### [facility] [address] [place], [address] Lymphocytes/100 WBC (Bld) 5.9 % Low 19-41 [facility] Comment on above: Performed By: #### L 500.2500 #### [facility] [address] [place], [address] MCH (RBC) [Entitic mass] 29.0 pg Normal 27.0-32.0 [facility] Comment on above: Performed By: #### L 500.2500 #### [facility] [address] [place], [address] MCHC (RBC) [Mass/Vol] 33.6 g/dL Normal 32-36 [facility] Comment on above: Performed By: #### L 500.2500 #### [facility] [address] [place], [address] MCV (RBC) [Entitic vol] 86.4 fL Normal 81-99 [facility] Comment on above: Performed By: #### L 500.2500 #### [facility] [address] [place], [address] Monocytes/100 WBC (Bld) 2.1 % Normal 0-10 [facility] Comment on above: Performed By: #### L 500.2500 #### [facility] [address] [place], [address] Neutrophils/100 WBC (Bld) 91.3 % High 47-70 [facility] Comment on above: Performed By: #### L 500.2500 #### [facility] [address] [place], [address] Nucleated RBC (Bld) [#/Vol] 0 10*3/uL Normal 0-5 [facility] Comment on above: Performed By: #### L 500.2500 #### [facility] [address] [place], [address] Platelet mean volume (Bld) [Entitic vol] 8.7 fL Normal 6.2-12.0 [facility] Comment on above: Performed By: #### L 500.2500 #### [facility] [address] [place], [address] Platelets (Bld) [#/Vol] 410 10*3/uL Normal 150-450 [facility] Comment on above: Performed By: #### L 500.2500 #### [facility] [address] [place], [address] RBC (Bld) [#/Vol] 5.14 10*6/uL Normal 4.2-5.4 [facility] Comment on above: Performed By: #### L 500.2500 #### [facility] [address] [place], [address] RDW SD 40.5 fl Normal 35.1-43.9 [facility] Comment on above: Performed By: #### L 500.2500 #### [facility] [address] [place], [address] WBC (Bld) [#/Vol] 16.1 10*3/uL High 4.4-11.0 [facility] Comment on above: Performed By: #### L 500.2500 #### [facility] [address] [place], [address] CO2 (BldV) [Moles/Vol]Ordere d By: Ted Mcghee on 11-27-2024 CO2 [Moles/Vol] 12 mmol/L Low 23-33 [facility] Carbon dioxide, total [Moles /volume] in Central venous bloodOrdered By: Ted Mcghee on 11-27-2024 CO2 [Moles/Vol] 11.2 mmol/L Low 21.0-32.0 [facility] Chest PA and Lateralon 11-27 Chest PA and Lateral [facility] Services [address] [place] [address] Chest PA and Lateral MR#: [id number] Acct: [id number] Name: KALIE DESIR Rep #: [id number] : 2000 F 24 From: Nathan Sheldon MD PCP: Minnie Hodge Status: [facility] ER Study: Chest PA and Lateral Date of Exam: 11/27/24 Exam# [id number] Ordering Dr: Ted Mcghee MD EXAM: XR Chest, 2 Views CLINICAL INDICATION: PRODUCTIVE COUGH TECHNIQUE: Frontal and lateral views of the chest. COMPARISON: No relevant prior studies available. FINDINGS: LUNGS AND PLEURAL SPACES: Unremarkable. No consolidation. No pneumothorax. HEART: Unremarkable. No cardiomegaly. MEDIASTINUM: Unremarkable. Normal mediastinal contour. BONES/JOINTS: Unremarkable. No acute fracture. RAD/Chest PA and Lateral IMPRESSION: No acute cardiopulmonary process. Reading Location: [facility] CC: Minnie Hodge; Dr. Ted Mcghee MD Timekeeper: Signed Normal [facility] Chloride assayOrdered By: Shreya Mcghee on 11-27-2024 Chloride [Moles/Vol] 97 mmol/L Low 98-108 [facility] Emergency Department Summary on 11-27-2024 Emergency Department Summary [facility] Medical Records Department [address] [place] [address] Emergency Department Summary 11/27/24 MR#: [id number] Acct: [id number] Name: KALIE DESIR Rep #: [id number] : 2000 24 From: Ted Mcghee MD PCP: Minnie Hodge Status:REG ER Location: ED HPI History of Present Illness Chief Complaint: Hyperglycemia Detail of Chief Complaint: My diabetes Informant: patient and spouse/S.O. Onset/Context/Timing Onset: Yesterday (Was seen in the Emergency Department for hyperglycemia with ketosis. She was discharged to home.) Context: Sudden Onset Timing: Continuous Quality: High blood sugar, positive ketones, respiratory symptoms and nausea and vom Location: Generalized Current Severity: Severe Maximum Severity: Severe Worsened by: Possible upper respiratory infection Relieved by: Nothing Associated Symptoms Associated Symptoms: Patient does have history of cannabis hyperemesis syndrome, Narrative Narrative: Patient is a 24-year-old female who is brought in by significant other. She presents because of nausea and vomiting. She was seen yesterday because of abdominal pain with nausea vomit diarrhea. Note authored by Dr. Damien Trimble was reviewed. Patient's urine is positive for ketones however beta hydroxybutyrate was negative/normal Patient does report elevated temperature to 100 ???F. She does endorse nasal congestion with vomiting, cough is productive of colored sputum. Presently she complains of nausea. She has bilious emesis noted in the emesis bag. She denies shortness of breath. She denies black or maroon-colored stool. She states her urine output is decreased. She does endorse dark-colored urine without blood and denies dysuria or urgency. Prior similar symptoms: Yes Recent Illness/Hospitalizati on: Yes [facility] Medical History Obesity (BMI 30.0-34.9) Insulin dependent type 1 diabetes mellitus Tachycardia Diabetic ketoacidosis Hx of type 1 diabetes mellitus Non-compliance DKA (diabetic ketoacidosis) Type 1 diabetes mellitus with hyperglycemia Hypokalemia Hypophosphatemia Cannabis hyperemesis syndrome concurrent with and due to cannabis abuse DKA, type [address] History of marijuana use Anxiety and depression Insomnia Numbness and tingling Insulin pump titration Presence of insulin pump History of hepatitis A Asthma Diabetes type 1, controlled Home Medications ???Medication ???Instructions ???Recorded ???Last Taken ???Type albuterol sulfate 90 mcg/actuation 2 puff inhalation Q4H PRN SHORTN ES 08/25/18 03/02/23 History aerosol inhaler (Ventolin HFA) OF BREATH/WHEEZING Ketone Urine Test (acetone (urine) #50 ea 11/05/21 Unknown Rx test) fluticasone propionate 50 2 spray intranasal DAILY NASAL 11/1002/12/23 History mcg/actuation nasal CONGESTION spray,suspension pen needle, diabetic 32 gauge x #120 ea 11/23/22 Unknown Rx (BD Ultra-Fine Opal Pen Needle) blood-glucose sensor (Dexcom G6 #9 ea 11/10/23 Unknown Rx Sensor device) blood-glucose transmitter (Dexcom #1 ea 11/10/23 Unknown Rx G6 Transmitter device) insulin lispro 100 unit/mL 15 unit (0.15 mL) subcut TIDAC #0 05/14/24 11/27/24 Rx subcutaneous pen (Humalog KwikPen mL (U-100) Insulin) insulin glargine 100 unit/mL (3 20 unit subcut DAILY 11/27/24 05/04/14 History mL) subcutaneous pen (Basaglar KwikPen U-100 Insulin) Allergy/AdvReac Type Severity Reaction Status Date / Time bee venom protein (honey Allergy Severe Anaphylaxis Verified 11/27/24 12:22 bee) (bee stings) Sulfa (Sulfonamide Allergy Unknown Verified 11/27/24 12:22 Antibiotics) prednisone AdvReac Vomiting Verified 11/27/24 12:22 Family History Grandmother Diabetes Sister Asthma Brother Asthma Mother Heart disease Surgical History History of placement of ear tubes Social History adopted: No household members: spouse housing: other details: mobile home number of children: 0 current occupational status: employed current occupation: [employer] pets and animals: Yes pets and animals: dog(s) and other details: python history of recent travel: Yes ([place]) out of state: Yes out of country: No sexually active: Yes Smoking Status: Current some day smoker tobacco type: pipe second hand exposure: Yes alcohol intake: never substance use type: marijuana and other details: Cannabis, last use 1 month prior, ingested. well-balanced diet: about half the time caffeine: No eating out: 1-3 times/week during the past year weight has: other details: fluxuates 20 # what type of physical activity do you par (more content not included)... Normal [facility] Eosinophil percentageOrdered By: Ted Mcghee on 11-27-2024 Eosinophils/100 WBC (Bld) 0.0 % 0-5 [facility] Erythrocyte distribution wid th ratioOrdered By: Ted Mcghee on 11-27-2024 Erythrocyte distribution width (RBC) [Ratio] 12.9 % 11.6-14.6 [facility] Erythrocyte distribution wid th standard deviationOrdered By: Ted Mcghee on 11-27-2024 Erythrocyte distribution width (RBC) [Ratio] 40.5 fl 35.1-43.9 [facility] Glomerular filtration rate ( GFR) estimation/1.73 sq m using serum, plasma, or whole bOrdered By: Ted Mcghee on 11-27-2024 GFR/1.73 sq M.predicted among non-blacks MDRD (S/P/Bld) [Vol rate/Area] 102 mL/min/{1.73_m2} >60 [facility] Comment on above: mL/min/1.73m2 CKD-EP I Creatinine Equation (2020) [facility] deOrdered By: Zaida Hoff on 11-27-2024 Glucose [Mass/Vol] 199 mg/dL High 74-106 [facility] Comment on above: MANAGEMENT OF PATIEN T CARE PER NURSING PROTOCOL H AND P Exam - [facility] 11-27-2024 H&P Exam - Hospitalist [facility] Medical Records Department [address] [place] [address] H P Exam - Hospitalist 11/27/24 1542 MR#: [id number] Acct: [id number] Name: KALIE DESIR Rep #: [id number] : 2000 24 From: Zaida Hoff MD PCP: Minnie Hodge Status:ADM [place] Location: ICU [id number] HPI - General General Date of Admission: 11/27/24 Date of Service: 11/27/24 Chief Complaint: DKA HPI Narrative KALIE DESIR, is a Patient is a 24-year-old female with history of type 1 diabetes, cannabis emesis syndrome, asthma who presented to [facility] ED with her significant other 11/27/2024 with nausea and vomiting. She was seen yesterday because of abdominal pain with nausea, vomiting, diarrhea but ultimately was discharged home as there was ketones in urine but beta hydroxybutyrate did not flagged as abnormal. Patient reports that her symptoms and persisted now she is having diarrhea prompting her to come back to the ED. In the ED temperature 97.3, heart rate initially 127 with blood pressure 141/83, respiratory rate 16 pulse ox 100% on room air. White blood cell count of 16, and his blood gas with pH of 7.29, BMP demonstrated bicarb of 11.2 with anion gap of 28 and glucose of 335, urine ketones positive and beta hydroxybutyrate elevated at 5.8. Chest x-ray with no acute process. Patient diagnosed with DKA and given IV fluids and IV insulin her hospitalist contacted for admission to the ICU. Patient evaluated bedside and reports that starting at 3 AM yesterday she had diarrhea, nausea, vomiting, is getting hot flashes but has not had a temperature over 100 degrees, gets a little bit of a cough and runny nose when she vomits but nothing independent of that, reports she is still taking her insulin. Presently still having a little bit abdominal pain but mostly some burning and acid feeling in her chest, has not had diarrhea since this morning but has not gone to the bathroom since then, is still nauseous, has felt like she needed to take deep breaths but not overtly short of breath and only a little bit of a cough associated with her vomiting [facility] Medical History Obesity (BMI 30.0-34.9) Insulin dependent type 1 diabetes mellitus Tachycardia Diabetic ketoacidosis Hx of type 1 diabetes mellitus Non-compliance DKA (diabetic ketoacidosis) Type 1 diabetes mellitus with hyperglycemia Hypokalemia Hypophosphatemia Cannabis hyperemesis syndrome concurrent with and due to cannabis abuse DKA, type [address] History of marijuana use Anxiety and depression Insomnia Numbness and tingling Insulin pump titration Presence of insulin pump History of hepatitis A Asthma Diabetes type 1, controlled Home Medications ???Medication ???Instructions ???Recorded ???Last Taken ???Type albuterol sulfate 90 mcg/actuation 2 puff inhalation Q4H PRN SHORTN ES 08/25/18 03/02/23 History aerosol inhaler (Ventolin HFA) OF BREATH/WHEEZING Ketone Urine Test (acetone (urine) #50 ea 11/05/21 Unknown Rx test) fluticasone propionate 50 2 spray intranasal DAILY NASAL 11/1002/12/23 History mcg/actuation nasal CONGESTION spray,suspension pen needle, diabetic 32 gauge x #120 ea 11/23/22 Unknown Rx (BD Ultra-Fine Opal Pen Needle) blood-glucose sensor (Dexcom G6 #9 ea 11/10/23 Unknown Rx Sensor device) blood-glucose transmitter (Dexcom #1 ea 11/10/23 Unknown Rx G6 Transmitter device) insulin lispro 100 unit/mL 15 unit (0.15 mL) subcut TIDAC #0 05/14/24 11/27/24 Rx subcutaneous pen (Humalog KwikPen mL (U-100) Insulin) insulin glargine 100 unit/mL (3 20 unit subcut DAILY 11/27/24 05/0 04/14 History mL) subcutaneous pen (Basaglar KwikPen U-100 Insulin) Allergy/AdvReac Type Severity Reaction Status Date / Time bee venom protein (honey Allergy Severe Anaphylaxis Verified 11/27/24 12:22 bee) (bee stings) Sulfa (Sulfonamide Allergy Unknown Verified 11/27/24 12:22 Antibiotics) prednisone AdvReac Vomiting Verified 11/27/24 12:22 Family History Grandmother Diabetes Sister Asthma Brother Asthma Mother Heart disease Surgical History History of placement of ear tubes Social History adopted: No household members: spouse housing: other details: mobile home number of children: 0 current occupational status: employed current occupation: [employer] pets and animals: Yes pets and animals: dog(s) and other details: python history of recent travel: Yes ([place]) out of state: Yes out of country: No sexually active: Yes Smoking Status: Current some day smoker tobacco type: pipe second hand exposure: Yes alcohol intak (more content not included)... Normal [facility] Hematocrit Auto (Bld) [Volum e fraction]Ordered By: Ted Mcghee on 11-27-2024 Hematocrit (Bld) [Volume fraction] 44.4 % 37-47 [facility] Hemoglobin measurementOrdere d By: Ted Mcghee on 11-27-2024 Hemoglobin (Bld) [Mass/Vol] 14.9 g/dL 12.0-15.0 [facility] Hyaline casts LM.LPF (Urine sed) [#/Area]Ordered By: Ted Mcghee on 11-27-2024 Hyaline casts (Urine sed) [#/Area] 0 /[LPF] 0-5 [facility] Immature granulocytes/100 WB C Auto (Bld)Ordered By: Ted Mcghee on 11-27-2024 Immature granulocytes/100 WBC (Bld) 0.400 % 0.0-0.9 [facility] Comment on above: IG% - Immature Granu locytes (promyelocytes, myelocytes and metamyelocytes) > 1% indicates that a LEFT SHIFT is Present. Ketones Test strip Ql (U)Ord ered By: Ted Mcghee on 11-27-2024 Ketones Ql (U) 150 mg/dl Abnormal Negative [facility] Comment on above: CRITICAL VALUE *H MCV (mean corpuscular volume ) determinationOrdered By: Ted Mcghee on 11-27-2024 MCV (RBC) [Entitic vol] 86.4 fL 81-99 [facility] Magnesiumon 11-27-2024 Magnesium [Mass/Vol] 2.0 mg/dL Normal 1.5-2.2 [facility] Comment on above: Performed By: #### L 501.6901, L700.6800, L500.4050, L501.2450, L100.0100 #### [facility] [address] [place], [place], [address] Mean corpuscular hemoglobin (MCH) determinationOrdered By: Ted Mcghee on 11-27-2024 MCH (RBC) [Entitic mass] 29.0 pg 27.0-32.0 [facility] Mean corpuscular hemoglobin concentration (MCHC) determinationOrdered By: Ted Mcghee on 11-27-2024 MCHC (RBC) [Mass/Vol] 33.6 g/dL 32-36 [facility] Mean platelet volume determi nationOrdered By: Ted Mcghee on 11-27-2024 Platelet mean volume (Bld) [Entitic vol] 8.7 fL 6.2-12.0 [facility] Microscopic analysis of urin e for red blood cells (RBC)Ordered By: Ted Mcghee on 11-27-2024 Microscopic analysis of urine for red blood cells (RBC) 0 SEEN /hpf 0-5 [facility] Monocyte percentageOrdered B y: Ted Mcghee on 11-27-2024 Monocytes/100 WBC (Bld) 2.1 % 0-10 [facility] Mucus LM Ql (Urine sed)Order ed By: Ted Mcghee on 11-27-2024 Mucus Ql (Urine sed) 0 SEEN /hpf [facility] Neutrophil percentageOrdered By: Ted Mcghee on 11-27-2024 Neutrophils/100 WBC (Bld) 91.3 % High 47-70 [facility] Nitrite Test strip Ql (U)Ord ered By: Ted Mcghee on 11-27-2024 Nitrite Ql (U) Negative Negative [facility] No Panel InformationOrdered By: Ted Mcghee on 11-27-2024 Blood Gas Sample Site Not entered [facility] Blood Gas Specimen Type LUIS [facility] Oxygen Delivery Device Not entered [facility] Nucleated red blood cell per centageOrdered By: Ted Mcghee on 11-27-2024 Nucleated RBC/100 WBC (Bld) [Ratio] 0 % 0-5 [facility] Platelet countOrdered By: Shreya Mcghee on 11-27-2024 Platelets (Bld) [#/Vol] 410 10*3/uL 150-450 [facility] Potassium measurement (mass/ volume)Ordered By: Ted Mcghee on 11-27-2024 Potassium (Unsp spec) [Mass/Vol] 3.6 mmol/L 3.3-5.1 [facility] ,Urineon 11-27-2024 Beta HCG ( test) Ql (U) Negative Normal [facility] Comment on above: Order Comment: 580 Result Comment: Very dilute urine specimens, as indicated by a low specific gravity, may not contain medical field representative levels of hCG. If is still suspected, a first morning urine specimen should be collected 48 hours later and tested. Performed By: #### L 9000.0810 #### [facility] [address] [place], [address] Protein Test strip Ql (U)Ord ered By: Ted Mcghee on 11-27-2024 Protein Ql (U) 30 mg/dl High Negative [facility] RBC Auto (Bld) [#/Vol]Ordere d By: Ted Mcghee on 11-27-2024 RBC (Bld) [#/Vol] 5.14 10*6/uL 4.2-5.4 [facility] Serum creatinine measurement (mass/volume)Ordered By: Ted Mcghee on 11-27-2024 Creatinine [Mass/Vol] 0.82 mg/dL 0.70-1.20 [facility] Serum glucose measurement (m ass/volume)Ordered By: Ted Mcghee on 11-27-2024 Glucose [Mass/Vol] 335 mg/dL High 70-99 [facility] Serum or plasma calcium edward urement (mass/volume)Ordered By: Tedchirag Mcghee on 11-27-2024 Calcium [Mass/Vol] 10.0 mg/dL 7.6-11.0 [facility] Serum or plasma urea nitroge n measurement (mass/volume)Ordered By: Ted Mcghee on 11-27-2024 Urea nitrogen [Mass/Vol] 16 mg/dL 4-19 [facility] Sodium levelOrdered By: Tedchirag Mcghee on 11-27-2024 Sodium [Moles/Vol] 136 mmol/L 133-145 [facility] Squamous epithelial cells de tection in urine sediment by light microscopyOrdered By: Tedchirag Mcghee on 11-27-2024 Epithelial cells.squamous LM Ql (Urine sed) 0-5 SEEN /hpf 11-27 [facility] TSH DL <= 0.005 mIU/L QnOrde red By: Ted Mcghee on 11-27-2024 TSH Qn 3.740 uIU/mL 0.300-4.200 [facility] Thyroid Stim Hormone (TSH)on 11-27-2024 TSH 3.740 uIU/mL Normal 0.300-4.200 [facility] Comment on above: Performed By: #### L 9000.0810 #### [facility] [facility] [address] [place], [place], [id number] Urinalysis, Completeon 11-27 CAST,HYALINE 0-5 SEEN Normal 0-5 [facility] Comment on above: Order Comment: CRITI DONI VALUE CALLED TO SHALONDA TRUJILLO 11/27/24 [facility] Gaby Macdonald. RESULTS READ BACK BY SAME. CLEAN CATCH Performed By: #### L 400.0001 #### [facility] [address] [place], [place], [id number] EPI,SQUAMOUS 0-5 SEEN Normal 11-27 [facility] Comment on above: Order Comment: CRITI DONI VALUE CALLED TO SHALONDA TRUJILLO 11/27/24 1434 Gaby Macdonald. RESULTS READ BACK BY SAME. CLEAN CATCH Performed By: #### L 400.0001 #### [facility] [address] [place], [address] BACTERIA 0 SEEN Normal None Seen [facility] Comment on above: Order Comment: CRITI DONI VALUE CALLED TO SHALONDA TRUJILLO 11/27/24 1434 Gaby Macdonald. RESULTS READ BACK BY SAME. CLEAN CATCH Performed By: #### L 400.0001 #### [facility] [address] [place], [address] Mucus Ql (Urine sed) 0 SEEN Normal [facility] Comment on above: Order Comment: CRITI DONI VALUE CALLED TO SHALONDA [place] 11/27/24 1434 Gaby Macdonald. RESULTS READ BACK BY SAME. CLEAN CATCH Performed By: #### L 400.0001 #### [facility] [address] [place], [address] RBC 0 SEEN Normal 0-5 [facility] Comment on above: Order Comment: CRITI DONI VALUE CALLED TO SHALONDA [place] 11/27/24 [facility] Gaby Macdonald. RESULTS READ BACK BY SAME. CLEAN CATCH Performed By: #### L 400.0001 #### [facility] [address] [place], [address] WBC 0 SEEN Normal 0-5 [facility] Comment on above: Order Comment: CRITI DONI VALUE CALLED TO SHALONDA [place] 11/27/24 1434 Gaby Macdonald. RESULTS READ BACK BY SAME. CLEAN CATCH Performed By: #### L 400.0001 #### [facility] [address] [place], [address] Urine clarityOrdered By: Ted Mcghee on 11-27-2024 Clarity (U) Clear Clear [facility] Urine color determinationOrd ered By: Ted Mcghee on 11-27-2024 Color (U) Yellow Yellow [facility] Urine glucose detectionOrder ed By: Ted Mcghee on 11-27-2024 Glucose Ql (U) 1000 mg/dl High Normal [facility] Urine leukocyte esterase det ection by dipstickOrdered By: Ted Mcghee on 11-27-2024 Leukocyte esterase Test strip Ql (U) Negative Negative [facility] Urine pHOrdered By: Ted beard on 11-27-2024 pH (U) 5.0 [pH] 5.0 - 8.0 [facility] Urine testOrdered By: Zaida Hoff on 11-27-2024 HCG ( test) Ql (U) Negative [facility] Comment on above: Very dilute urine sp ecimens, as indicated by a low specificgravity, may not contain medical field representative levels of hCG. If is still suspected, a first morning urinespecimen should be collected 48 hours later and tested. Urine sediment bacteria coun t by microscopy (number/high power field)Ordered By: Ted Mcghee on 11-27-2024 Bacteria LM.HPF (Urine sed) [#/Area] 0 /[HPF] None Seen [facility] Urine specific gravity measu rementOrdered By: Ted Mcghee on 11-27-2024 Specific gravity (U) [Rel density] 1.025 1.002-1.030 [facility] Urine urobilinogen measureme ntOrdered By: Ted Mcghee on 11-27-2024 Urobilinogen Ql (U) Normal mg/dl Normal [facility] Venous Blood Gason 5 Blood Gas Type LUIS Normal [facility] Comment on above: Performed By: #### L 9000.0810 #### [facility] [address] [facility] [place], [address] CO2 [Moles/Vol] 12 mmol/L Low 23-33 [facility] Comment on above: Performed By: #### L 9000.0810 #### [facility] [address] [place], [address] HCO3 (Bld) [Moles/Vol] 12 mmol/L Low 22-26 [facility] Comment on above: Performed By: #### L 9000.0810 #### [facility] [address] [facility] [place], [address] O2 Delivery Dev Not entered Normal [facility] Comment on above: Performed By: #### L 9000.0810 #### [facility] [address] [place], [address] SITE Not entered Normal [facility] Comment on above: Performed By: #### L 9000.0810 #### [facility] [address] [place], [address] VBG BE -15 mmol/L Low -1.0-3.5 [facility] Comment on above: Performed By: #### L 9000.0810 #### [facility] [address] [place], [address] VBG pCO2 24.2 mmHg Low 41-51 [facility] Comment on above: Performed By: #### L 9000.0810 #### [facility] [address] [place], [address] VBG pH 7.29 Low 7.32-7.42 [facility] Comment on above: Performed By: #### L 9000.0810 #### [facility] [address] [place], [address] VBG PO2 80 mmHg High 25-40 [facility] Comment on above: Performed By: #### L 9000.0810 #### [facility] [address] [place], [address] VBG SO2 95 High 50-70 [facility] Comment on above: Performed By: #### L 9000.0810 #### [facility] [address] [place], [address] Venous blood base excess chloe surementOrdered By: Ted Mcghee on 11-27-2024 Base excess Calc (BldV) [Moles/Vol] -15 mmol/L Low -1.0-3.5 [facility] Venous blood bicarbonate chloe surementOrdered By: Ted Mcghee on 11-27-2024 HCO3 (Bld) [Moles/Vol] 12 mmol/L Low 22-26 [facility] Venous blood oxygen saturati on measurementOrdered By: Ted Mcghee on 11-27-2024 Oxygen saturation in Blood 95 % High 50-70 [facility] Venous blood pH measurementO rdered By: Ted Mcghee on 11-27-2024 pH (BldV) 7.29 [pH] Low 7.32-7.42 [facility] Venous blood partial pressur e of carbon dioxide measurementOrdered By: Ted Mcghee on 11-27-2024 CO2 (BldV) [Partial pressure] 24.2 mm[Hg] Low 41-51 [facility] Venous blood partial pressur e of oxygen measurementOrdered By: Ted Mcghee on 11-27-2024 Oxygen (BldV) [Partial pressure] 80 mm[Hg] High 25-40 [facility] White blood cell (WBC) count Ordered By: Tedchirag Mcghee on 11-27-2024 WBC (Bld) [#/Vol] 16.1 10*3/uL High 4.4-11.0 [facility] White blood cell countOrdere d By: Ted Mcghee on 11-27-2024 White blood cell count 0 SEEN /hpf 0-5 [facility] Absolute lymphocyte countOrd ered By: Damien Dewey on 11-26-2024 Lymphocytes Auto (Unsp spec) [#/Vol] 1.14 10*3/uL 0.83-4.51 [facility] Absolute neutrophil countOrd ered By: Damien Dewey on 11-26-2024 Neutrophils (Bld) [#/Vol] 7.3 10*3/uL 2.0-7.7 [facility] Anion gap in Serum or Plasma Ordered By: Damien Dewey on 11-26-2024 Anion gap [Moles/Vol] 16 mmol/L High 5-15 [facility] Automated lymphocyte count a s percentage of total leukocytesOrdered By: Damien Dewey on 11-26-2024 Lymphocytes/100 WBC Auto (Unsp spec) 13.0 % Low 19-41 [facility] BUN/creatinine ratioOrdered By: Damien Dewey on 11-26-2024 Urea nitrogen/Creatinine [Mass ratio] 22.8 mg/mg High 10-20 [facility] Basic Metabolic Profile (BMP )on 11-26-2024 BUN/CRE 22.8 RATIO High 10-20 [facility] Comment on above: Performed By: #### L 501.080 #### [facility] [address] [place], [address] Calcium [Mass/Vol] 8.1 mg/dL Normal 7.6-11.0 [facility] Comment on above: Performed By: #### L 501.080 #### [facility] [address] [place], [address] Chloride [Moles/Vol] 106 mmol/L Normal 98-108 [facility] Comment on above: Performed By: #### L 501.080 #### [facility] [address] [place], [address] CO2 [Moles/Vol] 18.7 mmol/L Low 21.0-32.0 [facility] Comment on above: Performed By: #### L 501.080 #### [facility] [address] [place], [address] Creatinine [Mass/Vol] 0.50 mg/dL Low 0.70-1.20 [facility] Comment on above: Performed By: #### L 501.080 #### [facility] [address] [place], [address] ECRCL 143.91 ml/min Normal 50-250 [facility] Comment on above: Performed By: #### L 501.080 #### [facility] [address] [place], [address] GAP 16 High 5-15 [facility] Comment on above: Performed By: #### L 501.080 #### [facility] [address] [place], [address] GFR/1.73 sq M.predicted among non-blacks MDRD (S/P/Bld) [Vol rate/Area] 133 mL/min/{1.73_m2} Normal >60 [facility] Comment on above: Result Comment: mL/m in/1.73m2 CKD-EPI Creatinine Equation (2020) Performed By: #### L 501.080 #### [facility] [address] [place], [address] Glucose [Mass/Vol] 231 mg/dL High 70-99 [facility] Comment on above: Performed By: #### L 501.080 #### [facility] [address] [place], [address] Potassium [Moles/Vol] 3.8 mmol/L Normal 3.3-5.1 [facility] Comment on above: Result Comment: Hemo lysis present, Results??could be affected. ?? Performed By: #### L 501.080 #### [facility] [address] [place], [address] Sodium [Moles/Vol] 141 mmol/L Normal 133-145 [facility] Comment on above: Performed By: #### L 501.080 #### [facility] [address] [place], [address] Urea nitrogen [Mass/Vol] 11 mg/dL Normal 4-19 [facility] Comment on above: Performed By: #### L 501.080 #### [facility] [address] [place], [address] Basophil percentageOrdered B y: Damien Dewey on 11-26-2024 Basophils/100 WBC (Bld) 0.6 % 0-1 [facility] Beta-Hydroxbytyrateon 2024 BETA-HYDROXYBUT 1.8 mmol/L Normal 0.0-0.3 [facility] Comment on above: Performed By: #### L 501.6901, L700.6800, L500.4050, L501.2450, L100.0100 #### [facility] [address] [place], [address] Beta-hydroxybutyrateOrdered By: Damien Dewey on 11-26-2024 Beta hydroxybutyrate [Mass/Vol] 1.8 mmol/L 0.0-0.3 [facility] Bilirubin Test strip Ql (U)O rdered By: Damien Dewey on 11-26-2024 Bilirubin Ql (U) Negative Negative [facility] Bilirubin, totalOrdered By: Damien Dewey on 11-26-2024 Bilirubin [Mass/Vol] 0.63 mg/dL 0.00-1.30 [facility] CBC W/Diff, Automatedon 050 Absolute Lymph 1.14 X10 3/uL Normal 0.83-4.51 [facility] Comment on above: Performed By: #### L 501.6901, L700.6800, L500.4050, L501.2450, L100.0100 #### [facility] [address] [place], [address] Absolute Neut 7.3 X10 3/uL Normal 2.0-7.7 [facility] Comment on above: Performed By: #### L 501.6901, L700.6800, L500.4050, L501.2450, L100.0100 #### [facility] [address] [place], [address] Basophils/100 WBC (Bld) 0.6 % Normal 0-1 [facility] Comment on above: Performed By: #### L 501.6901, L700.6800, L500.4050, L501.2450, L100.0100 #### [facility] [address] [place], [address] Eosinophils/100 WBC (Bld) 0.0 % Normal 0-5 [facility] Comment on above: Performed By: #### L 501.6901, L700.6800, L500.4050, L501.2450, L100.0100 #### [facility] [address] [place], [address] Erythrocyte distribution width (RBC) [Ratio] 12.5 % Normal 11.6-14.6 [facility] Comment on above: Performed By: #### L 501.6901, L700.6800, L500.4050, L501.2450, L100.0100 #### [facility] [address] [place], [address] Hematocrit (Bld) [Volume fraction] 44.2 % Normal 37-47 [facility] Comment on above: Performed By: #### L 501.6901, L700.6800, L500.4050, L501.2450, L100.0100 #### [facility] [address] [place], [address] Hemoglobin (Bld) [Mass/Vol] 15.1 g/dL High 12.0-15.0 [facility] Comment on above: Performed By: #### L 501.6901, L700.6800, L500.4050, L501.2450, L100.0100 #### [facility] [address] [place], [address] IG% 0.200 Normal 0.0-0.9 [facility] Comment on above: Result Comment: IG% - Immature Granulocytes (promyelocytes, myelocytes and metamyelocytes) > 1% indicates that a LEFT SHIFT is Present. Performed By: #### L 501.6901, L700.6800, L500.4050, L501.2450, L100.0100 #### [facility] [address] [place], [address] Lymphocytes/100 WBC (Bld) 13.0 % Low 19-41 [facility] Comment on above: Performed By: #### L 501.6901, L700.6800, L500.4050, L501.2450, L100.0100 #### [facility] [address] [place], [address] MCH (RBC) [Entitic mass] 28.5 pg Normal 27.0-32.0 [facility] Comment on above: Performed By: #### L 501.6901, L700.6800, L500.4050, L501.2450, L100.0100 #### [facility] [address] [place], [address] MCHC (RBC) [Mass/Vol] 34.2 g/dL Normal 32-36 [facility] Comment on above: Performed By: #### L 501.6901, L700.6800, L500.4050, L501.2450, L100.0100 #### [facility] [address] [place], [address] MCV (RBC) [Entitic vol] 83.4 fL Normal 81-99 [facility] Comment on above: Performed By: #### L 501.6901, L700.6800, L500.4050, L501.2450, L100.0100 #### [facility] [address] [place], [address] Monocytes/100 WBC (Bld) 2.7 % Normal 0-10 [facility] Comment on above: Performed By: #### L 501.6901, L700.6800, L500.4050, L501.2450, L100.0100 #### [facility] [address] [place], [address] Neutrophils/100 WBC (Bld) 83.5 % High 47-70 [facility] Comment on above: Performed By: #### L 501.6901, L700.6800, L500.4050, L501.2450, L100.0100 #### [facility] [address] [place], [address] Nucleated RBC (Bld) [#/Vol] 0 10*3/uL Normal 0-5 [facility] Comment on above: Performed By: #### L 501.6901, L700.6800, L500.4050, L501.2450, L100.0100 #### [facility] [address] [place], [address] Platelet mean volume (Bld) [Entitic vol] 9.0 fL Normal 6.2-12.0 [facility] Comment on above: Performed By: #### L 501.6901, L700.6800, L500.4050, L501.2450, L100.0100 #### [facility] [address] [place], [address] Platelets (Bld) [#/Vol] 368 10*3/uL Normal 150-450 [facility] Comment on above: Performed By: #### L 501.6901, L700.6800, L500.4050, L501.2450, L100.0100 #### [facility] [address] [place], [address] RBC (Bld) [#/Vol] 5.30 10*6/uL Normal 4.2-5.4 [facility] Comment on above: Performed By: #### L 501.6901, L700.6800, L500.4050, L501.2450, L100.0100 #### [facility] [address] [place], [address] RDW SD 37.8 fl Normal 35.1-43.9 [facility] Comment on above: Performed By: #### L 501.6901, L700.6800, L500.4050, L501.2450, L100.0100 #### [facility] [address] [place], [address] WBC (Bld) [#/Vol] 8.8 10*3/uL Normal 4.4-11.0 [facility] Comment on above: Performed By: #### L 501.6901, L700.6800, L500.4050, L501.2450, L100.0100 #### [facility] [address] [place], [address] CO2 (BldV) [Moles/Vol]Ordere d By: Damien Dewey on 11-26-2024 CO2 [Moles/Vol] 26 mmol/L 23-33 [facility] Carbon dioxide, total [Moles /volume] in Central venous bloodOrdered By: Damien Dewey on 11-26-2024 CO2 [Moles/Vol] 18.7 mmol/L Low 21.0-32.0 [facility] Chloride assayOrdered By: Deepika Dewey on 11-26-2024 Chloride [Moles/Vol] 106 mmol/L 98-108 [facility] Comprehensive Metabolic Prof ilon 11-26-2024 Albumin [Mass/Vol] 4.9 g/dL Normal 3.5-5.0 [facility] Comment on above: Performed By: #### L 501.6901, L700.6800, L500.4050, L501.2450, L100.0100 #### [facility] [address] [place], [address] Albumin/Globulin [Mass ratio] 1.5 {ratio} Normal 0.9-2.4 [facility] Comment on above: Performed By: #### L 501.6901, L700.6800, L500.4050, L501.2450, L100.0100 #### [facility] [address] [place], [address] ALK PHOS 136 U/L High 35-104 [facility] Comment on above: Performed By: #### L 501.6901, L700.6800, L500.4050, L501.2450, L100.0100 #### [facility] [address] [place], [address] ALT [Catalytic activity/Vol] 25 U/L Normal <=34 [facility] Comment on above: Performed By: #### L 501.6901, L700.6800, L500.4050, L501.2450, L100.0100 #### [facility] [address] [place], [address] AST [Catalytic activity/Vol] 38 U/L High <=31 [facility] Comment on above: Result Comment: Hemo lysis present, Results??could be affected. ?? Performed By: #### L 501.6901, L700.6800, L500.4050, L501.2450, L100.0100 #### [facility] [address] [place], [address] Bilirubin [Mass/Vol] 0.63 mg/dL Normal 0.00-1.30 [facility] Comment on above: Performed By: #### L 501.6901, L700.6800, L500.4050, L501.2450, L100.0100 #### [facility] [address] [place], [address] BUN/CRE 20.6 RATIO High 10-20 [facility] Comment on above: Performed By: #### L 501.6901, L700.6800, L500.4050, L501.2450, L100.0100 #### [facility] [address] [place], [address] Calcium [Mass/Vol] 10.4 mg/dL Normal 7.6-11.0 [facility] Comment on above: Performed By: #### L 501.6901, L700.6800, L500.4050, L501.2450, L100.0100 #### [facility] [address] [place], [address] Chloride [Moles/Vol] 95 mmol/L Low 98-108 [facility] Comment on above: Performed By: #### L 501.6901, L700.6800, L500.4050, L501.2450, L100.0100 #### [facility] [address] [place], [address] CO2 [Moles/Vol] 21.8 mmol/L Normal 21.0-32.0 [facility] Comment on above: Performed By: #### L 501.6901, L700.6800, L500.4050, L501.2450, L100.0100 #### [facility] [address] [place], [address] Creatinine [Mass/Vol] 0.68 mg/dL Low 0.70-1.20 [facility] Comment on above: Performed By: #### L 501.6901, L700.6800, L500.4050, L501.2450, L100.0100 #### [facility] [address] [place], [address] ECRCL 105.81 ml/min Normal 50-250 [facility] Comment on above: Performed By: #### L 501.6901, L700.6800, L500.4050, L501.2450, L100.0100 #### [facility] [address] [place], [address] GAP 22 High 5-15 [facility] Comment on above: Performed By: #### L 501.6901, L700.6800, L500.4050, L501.2450, L100.0100 #### [facility] [address] [place], [address] GFR/1.73 sq M.predicted among non-blacks MDRD (S/P/Bld) [Vol rate/Area] 123 mL/min/{1.73_m2} Normal >60 [facility] Comment on above: Result Comment: mL/m in/1.73m2 CKD-EPI Creatinine Equation (2020) Performed By: #### L 501.6901, L700.6800, L500.4050, L501.2450, L100.0100 #### [facility] [address] [place], [address] Globulin (S) [Mass/Vol] 3.2 g/dL Normal 2.2-4.2 [facility] Comment on above: Performed By: #### L 501.6901, L700.6800, L500.4050, L501.2450, L100.0100 #### [facility] [address] [place], [address] Glucose [Mass/Vol] 360 mg/dL High 70-99 [facility] Comment on above: Performed By: #### L 501.6901, L700.6800, L500.4050, L501.2450, L100.0100 #### [facility] [address] [place], [address] Potassium [Moles/Vol] 4.0 mmol/L Normal 3.3-5.1 [facility] Comment on above: Result Comment: Hemo lysis present, Results??could be affected. ?? Performed By: #### L 501.6901, L700.6800, L500.4050, L501.2450, L100.0100 #### [facility] [address] [place], [address] Sodium [Moles/Vol] 139 mmol/L Normal 133-145 [facility] Comment on above: Performed By: #### L 501.6901, L700.6800, L500.4050, L501.2450, L100.0100 #### [facility] [address] [place], [address] T PROT 8.1 g/dL Normal 5.9-8.4 [facility] Comment on above: Performed By: #### L 501.6901, L700.6800, L500.4050, L501.2450, L100.0100 #### [facility] [address] [place], [address] Urea nitrogen [Mass/Vol] 14 mg/dL Normal 4-19 [facility] Comment on above: Performed By: #### L 501.6901, L700.6800, L500.4050, L501.2450, L100.0100 #### [facility] [address] [place], [address] Emergency Department Summary on 11-26-2024 Emergency Department Summary [facility] Medical Records Department [address] [place] [address] Emergency Department Summary 11/26/24 MR#: [id number] Acct: [id number] Name: KALIE DESIR Rep #: [id number] : 2000 24 From: Damien Dewey DO PCP: Minnie Hodge Status:DEP ER Location: ED HPI HPI - GI History of Present Illness Chief Complaint: Nausea/Vomiting Informant: patient Abdominal Pain/Flank Pain Onset: Today Context: Sudden Onset Timing: Continuous Quality: Burning Location: Diffuse Worsened by: Nothing Relieved by: - (Drinking water) Nausea/Vomiting/Emesi s GI Symptom: Positive for Nausea and Vomiting Quality: Positive for Nonbilious; Negative for Blood streaks, Coffee ground or Hematemesis Diarrhea/Melena/Hemat ochezia GI Symptom: Positive for Diarrhea; Negative for Melena or Hematochezia Associated Symptoms Associated Symptoms: Negative for Dysuria, Frequency or Hematuria Narrative Narrative: Patient presents with abdominal pain, nausea, vomiting, diarrhea that began earlier this morning. Patient states she is unable to keep anything down. Patient states she has diffuse pain across her entire abdomen. Patient describes it as burning. Patient states it gets better with drinking water. Patient states nothing makes it worse. Patient denies any hematemesis or coffee-ground emesis. Patient denies any melena or hematochezia. Patient denies any dysuria, frequency, or hematuria. Patient states her blood sugars at home have been reading high in the 500s. [facility] Medical History Obesity (BMI 30.0-34.9) Insulin dependent type 1 diabetes mellitus Tachycardia Diabetic ketoacidosis Hx of type 1 diabetes mellitus Non-compliance DKA (diabetic ketoacidosis) Type 1 diabetes mellitus with hyperglycemia Hypokalemia Hypophosphatemia Cannabis hyperemesis syndrome concurrent with and due to cannabis abuse DKA, type [address] History of marijuana use Anxiety and depression Insomnia Numbness and tingling Insulin pump titration Presence of insulin pump History of hepatitis A Asthma Diabetes type 1, controlled Home Medications ???Medication ???Instructions ???Recorded ???Last Taken ???Type albuterol sulfate 90 mcg/actuation 2 puff inhalation Q4H PRN SHORTN ES 08/25/18 03/02/23 History aerosol inhaler (Ventolin HFA) OF BREATH/WHEEZING Ketone Urine Test (acetone (urine) #50 ea 11/05/21 Unknown Rx test) fluticasone propionate 50 2 spray intranasal DAILY NASAL 11/1002/12/23 History mcg/actuation nasal CONGESTION spray,suspension pen needle, diabetic 32 gauge x #120 ea 11/23/22 Unknown Rx (BD Ultra-Fine Opal Pen Needle) hydroxyzine pamoate 25 mg capsule 25 mg PO QHS ITCHING #30 caps 02/12/23 Rx (Vistaril) blood-glucose sensor (Dexcom G6 #9 ea 11/10/23 Unknown Rx Sensor device) blood-glucose transmitter (Dexcom #1 ea 11/10/23 Unknown Rx G6 Transmitter device) metoclopramide HCl 5 mg tablet 5 mg PO DAILY PRN nausea and 05/12 Unknown Rx (Reglan) vomiting 3 days #9 tabs insulin glargine-yfgn 100 unit/mL 30 unit (0.3 mL) subcut DAILY #0 mL 05/14/24 Unknown Rx (3 mL) subcutaneous pen insulin lispro 100 unit/mL 15 unit (0.15 mL) subcut TIDAC #0 05/14/24 Unknown Rx subcutaneous pen (Humalog KwikPen mL (U-100) Insulin) Allergy/AdvReac Type Severity Reaction Status Date / Time bee venom protein (honey Allergy Severe Anaphylaxis Verified 11/26/24 07:48 bee) (bee stings) Sulfa (Sulfonamide Allergy Unknown Verified 11/26/24 07:48 Antibiotics) prednisone AdvReac Vomiting Verified 11/26/24 07:48 Family History Grandmother Diabetes Sister Asthma Brother Asthma Mother Heart disease Surgical History History of placement of ear tubes Social History adopted: No household members: spouse housing: other details: mobile home number of children: 0 current occupational status: employed current occupation: [employer] pets and animals: Yes pets and animals: dog(s) and other details: python history of recent travel: Yes ([place]) out of state: Yes out of country: No sexually active: Yes Smoking Status: Never smoker second hand exposure: Yes alcohol intake: never substance use type: marijuana and other details: Cannabis, last use 1 month prior, ingested. well-balanced diet: about half the time caffeine: No eating out: 1-3 times/week during the past year weight has: other details: fluxuates 20 # what type of physical activity do you participate in: walking and weight training jose/sabianist: None seatbelt use: always do you feel safe at home: Yes (more content not included)... Normal [facility] Eosinophil percentageOrdered By: Damien Dewey on 11-26-2024 Eosinophils/100 WBC (Bld) 0.0 % 0-5 [facility] Erythrocyte distribution wid th ratioOrdered By: Damien Dewey on 11-26-2024 Erythrocyte distribution width (RBC) [Ratio] 12.5 % 11.6-14.6 [facility] Erythrocyte distribution wid th standard deviationOrdered By: Damien Dewey on 11-26-2024 Erythrocyte distribution width (RBC) [Ratio] 37.8 fl 35.1-43.9 [facility] Glomerular filtration rate ( GFR) estimation/1.73 sq m using serum, plasma, or whole bOrdered By: Damien Dewey on 11-26-2024 GFR/1.73 sq M.predicted among non-blacks MDRD (S/P/Bld) [Vol rate/Area] 133 mL/min/{1.73_m2} >60 [facility] Comment on above: mL/min/1.73m2 CKD-EP I Creatinine Equation (2020) Hematocrit Auto (Bld) [Volum e fraction]Ordered By: Damien Dewey on 11-26-2024 Hematocrit (Bld) [Volume fraction] 44.2 % 37-47 [facility] Hemoglobin measurementOrdere d By: Damien Dewey on 11-26-2024 Hemoglobin (Bld) [Mass/Vol] 15.1 g/dL High 12.0-15.0 [facility] Immature granulocytes/100 WB C Auto (Bld)Ordered By: Damien Dewey on 11-26-2024 Immature granulocytes/100 WBC (Bld) 0.200 % 0.0-0.9 [facility] Comment on above: IG% - Immature Granu locytes (promyelocytes, myelocytes and metamyelocytes) > 1% indicates that a LEFT SHIFT is Present. Ketones Test strip Ql (U)Ord ered By: Damien Dewey on 11-26-2024 Ketones Ql (U) 150 mg/dl Abnormal Negative [facility] Comment on above: CRITICAL VALUE *HCRI TICAL VALUE CALLED TO [id number]/25 1024 Brittani Mora.RESULTS READ BACK BY SAME. Laboratory - Chemistry and C hemistry - challengeOrdered By: Damien Dewey on 11-26-2024 AST [Catalytic activity/Vol] 38 U/L High <32 [facility] Comment on above: Hemolysis present, R esults could be affected. Lipaseon 11-26-2024 Lipase [Catalytic activity/Vol] 11 U/L Low 13-75 [facility] Comment on above: Result Comment: Ilda nickerson note: LIPASE revised reference range effective 22. New Lipase methodology. Expected to produce lower values than the previous assay method. NEW Reference Range: 13 - 75 U/L Performed By: #### L 501.6901, L700.6800, L500.4050, L501.2450, L100.0100 #### [facility] [address] [place], [address] Lipase measurementOrdered By : Damien Dewey on 11-26-2024 Lipase [Catalytic activity/Vol] 11 U/L Low 13-75 [facility] Comment on above: Please note:LIPASE r evised reference range effective 22. New Lipase methodology. Expected to produce lower values than the previous assay method. NEW Reference Range: 13 - 75 U/L MCV (mean corpuscular volume ) determinationOrdered By: Damien Dewey on 11-26-2024 MCV (RBC) [Entitic vol] 83.4 fL 81-99 [facility] Mean corpuscular hemoglobin (MCH) determinationOrdered By: Damien Dewey on 11-26-2024 MCH (RBC) [Entitic mass] 28.5 pg 27.0-32.0 [facility] Mean corpuscular hemoglobin concentration (MCHC) determinationOrdered By: Damien Dewey on 11-26-2024 MCHC (RBC) [Mass/Vol] 34.2 g/dL 32-36 [facility] Mean platelet volume determi nationOrdered By: Damien Dewey on 11-26-2024 Platelet mean volume (Bld) [Entitic vol] 9.0 fL 6.2-12.0 [facility] Microscopic analysis of urin e for red blood cells (RBC)Ordered By: Damien Dewey on 11-26-2024 Microscopic analysis of urine for red blood cells (RBC) 0 SEEN /hpf 0-5 [facility] Monocyte percentageOrdered B y: Damien Dewey on 11-26-2024 Monocytes/100 WBC (Bld) 2.7 % 0-10 [facility] Mucus LM Ql (Urine sed)Order ed By: Damien Dewey on 11-26-2024 Mucus Ql (Urine sed) 0 SEEN /hpf [facility] Neutrophil percentageOrdered By: Damien Dewey on 11-26-2024 Neutrophils/100 WBC (Bld) 83.5 % High 47-70 [facility] Nitrite Test strip Ql (U)Ord ered By: Damien Dewey on 11-26-2024 Nitrite Ql (U) Negative Negative [facility] No Panel InformationOrdered By: Damien Dewey on 11-26-2024 Blood Gas Sample Site Not entered [facility] Blood Gas Specimen Type LUSI [facility] Oxygen Delivery Device Not entered [facility] Nucleated red blood cell per centageOrdered By: Damien Dewey on 11-26-2024 Nucleated RBC/100 WBC (Bld) [Ratio] 0 % 0-5 [facility] Platelet countOrdered By: Deepika Dewey on 11-26-2024 Platelets (Bld) [#/Vol] 368 10*3/uL 150-450 [facility] Potassium measurement (mass/ volume)Ordered By: Damien Dewey on 11-26-2024 Potassium (Unsp spec) [Mass/Vol] 3.8 mmol/L 3.3-5.1 [facility] Comment on above: Hemolysis present, R esults could be affected. ,Serum,hCG Quali.on 11-26-2024 HCG, SERUM QUAL Negative Normal [facility] Comment on above: Performed By: #### L 501.6901, L700.6800, L500.4050, L501.2450, L100.0100 #### [facility] [address] [place] [address], [address] Protein Test strip Ql (U)Ord ered By: Damien Dewey on 11-26-2024 Protein Ql (U) 30 mg/dl High Negative [facility] RBC Auto (Bld) [#/Vol]Ordere d By: Damien Dewey on 11-26-2024 RBC (Bld) [#/Vol] 5.30 10*6/uL 4.2-5.4 [facility] Serum beta-hCG test, qualita tiveOrdered By: Damien Dewey on 11-26-2024 Beta HCG ( test) Ql Negative [facility] Serum creatinine measurement (mass/volume)Ordered By: Damien Dewey on 11-26-2024 Creatinine [Mass/Vol] 0.50 mg/dL Low 0.70-1.20 [facility] Serum globulin measurementOr dered By: Damien Dewey on 11-26-2024 Globulin (S) [Mass/Vol] 3.2 g/dL 2.2-4.2 [facility] Serum glucose measurement (m ass/volume)Ordered By: Damien Dewey on 11-26-2024 Glucose [Mass/Vol] 231 mg/dL High 70-99 [facility] Serum or plasma alanine powers otransferase (ALT) measurementOrdered By: Damien Dewey on 11-26-2024 ALT [Catalytic activity/Vol] 25 U/L <35 [facility] Serum or plasma albumin edward urement (mass/volume)Ordered By: Damien Dewey on 11-26-2024 Albumin [Mass/Vol] 4.9 g/dL 3.5-5.0 [facility] Serum or plasma albumin/glob ulin mass ratioOrdered By: Damien Dewey on 11-26-2024 Albumin/Globulin [Mass ratio] 1.5 {ratio} 0.9-2.4 [facility] Serum or plasma alkaline harish sphatase measurementOrdered By: Damien Dewey on 11-26-2024 ALP [Catalytic activity/Vol] 136 U/L High 35-104 [facility] Serum or plasma calcium edward urement (mass/volume)Ordered By: Damien Dweey on 11-26-2024 Calcium [Mass/Vol] 8.1 mg/dL 7.6-11.0 [facility] Serum or plasma urea nitroge n measurement (mass/volume)Ordered By: Damien Dewey on 11-26-2024 Urea nitrogen [Mass/Vol] 11 mg/dL 4-19 [facility] Sodium levelOrdered By: Damien Dewey on 11-26-2024 Sodium [Moles/Vol] 141 mmol/L 133-145 [facility] Squamous epithelial cells de tection in urine sediment by light microscopyOrdered By: Damien Dewey on 11-26-2024 Epithelial cells.squamous LM Ql (Urine sed) 0-5 SEEN /hpf 5-10 [facility] Total proteinOrdered By: Arelis Dewey on 11-26-2024 Protein [Mass/Vol] 8.1 g/dL 5.9-8.4 [facility] Urinalysis, Completeon 11-26 EPI,SQUAMOUS 0-5 SEEN Normal 5-10 [facility] Comment on above: Order Comment: Call MD with results STAT Performed By: #### L 500.2500 #### [facility] [address] [place], [address] KETONE UR 150 mg/dl Abnormal Negative [facility] Comment on above: Order Comment: Call MD with results STAT Result Comment: CRIT ICAL VALUE *H CRITICAL VALUE CALLED TO AMURRAY 11/26/24 Claudia Mora. RESULTS READ BACK BY SAME. Performed By: #### L 500.2500 #### [facility] [address] [place], [address] BILIRUBIN URINE Negative Normal Negative [facility] Comment on above: Order Comment: Call MD with results STAT Performed By: #### L 500.2500 #### [facility] [address] [place], [address] Clarity (U) Clear Normal Clear [facility] Comment on above: Order Comment: Call MD with results STAT Performed By: #### L 500.2500 #### [facility] [address] [place], [address] Color (U) Yellow Normal Yellow [facility] Comment on above: Order Comment: Call MD with results STAT Performed By: #### L 500.2500 #### [facility] [address] [place], [address] GLUCOSE, UR 250 mg/dl Abnormal Normal [facility] Comment on above: Order Comment: Call MD with results STAT Performed By: #### L 500.2500 #### [facility] [address] [place], [address] LEUK ESTERASE Negative Normal Negative [facility] Comment on above: Order Comment: Call MD with results STAT Performed By: #### L 500.2500 #### [facility] [address] [place], [address] Nitrite Ql (U) Negative Normal Negative [facility] Comment on above: Order Comment: Call MD with results STAT Performed By: #### L 500.2500 #### [facility] [address] [place], [address] OCCULT BLOOD-UR Negative Normal Negative [facility] Comment on above: Order Comment: Call MD with results STAT Performed By: #### L 500.2500 #### [facility] [address] [place], [address] pH UR 8.0 Normal 5.0 - 8.0 [facility] Comment on above: Order Comment: Call MD with results STAT Performed By: #### L 500.2500 #### [facility] [address] [place], [address] PROT DIPSTX 30 mg/dl Abnormal Negative [facility] Comment on above: Order Comment: Call MD with results STAT Performed By: #### L 500.2500 #### [facility] [address] [place], [address] SP.GR. DIPSTX 1.010 Normal 1.002-1.030 [facility] Comment on above: Order Comment: Call MD with results STAT Performed By: #### L 500.2500 #### [facility] [address] [place], [address] UROBILI Normal Normal Normal [facility] Comment on above: Order Comment: Call MD with results STAT Performed By: #### L 500.2500 #### [facility] [address] [place], [address] BACTERIA 0 SEEN Normal None Seen [facility] Comment on above: Order Comment: Call MD with results STAT Performed By: #### L 500.2500 #### [facility] [address] [place], [address] Mucus Ql (Urine sed) 0 SEEN Normal [facility] Comment on above: Order Comment: Call MD with results STAT Performed By: #### L 500.2500 #### [facility] [address] [place], [address] RBC 0 SEEN Normal 0-5 [facility] Comment on above: Order Comment: Call MD with results STAT Performed By: #### L 500.2500 #### [facility] [address] [place], [place], [id number] WBC 0 SEEN Normal 0-5 [facility] Comment on above: Order Comment: Call MD with results STAT Performed By: #### L 500.2500 #### [facility] [address] [place], [place], [address] Urine clarityOrdered By: Arelis Dewey on 11-26-2024 Clarity (U) Clear Clear [facility] Urine color determinationOrd ered By: Damien Dewey on 11-26-2024 Color (U) Yellow Yellow [facility] Urine glucose detectionOrder ed By: Damien Dewey on 11-26-2024 Glucose Ql (U) 250 mg/dl High Normal [facility] Urine leukocyte esterase det ection by dipstickOrdered By: Damien Dewey on 11-26-2024 Leukocyte esterase Test strip Ql (U) Negative Negative [facility] Urine pHOrdered By: Damien busby on 11-26-2024 pH (U) 8.0 [pH] 5.0 - 8.0 [facility] Urine sediment bacteria coun t by microscopy (number/high power field)Ordered By: Damien Dewey on 11-26-2024 Bacteria LM.HPF (Urine sed) [#/Area] 0 /[HPF] None Seen [facility] Urine specific gravity measu rementOrdered By: Damien Dewey on 11-26-2024 Specific gravity (U) [Rel density] 1.010 1.002-1.030 [facility] Urine urobilinogen measureme ntOrdered By: Damien Dewey on 11-26-2024 Urobilinogen Ql (U) Normal mg/dl Normal [facility] Venous Blood Gason Blood Gas Type LUIS Normal [facility] Comment on above: Performed By: #### L 500.2500 #### [facility] [address] [place], [place], [id number] CO2 [Moles/Vol] 26 mmol/L Normal 23-33 [facility] Comment on above: Performed By: #### L 500.2500 #### [facility] [address] [place], [address] HCO3 (Bld) [Moles/Vol] 25 mmol/L Normal 22-26 [facility] Comment on above: Performed By: #### L 500.2500 #### [facility] [address] [place], [address] O2 Delivery Dev Not entered Normal [facility] Comment on above: Performed By: #### L 500.2500 #### [facility] [address] [place], [address] SITE Not entered Normal [facility] Comment on above: Performed By: #### L 500.2500 #### [facility] [address] [place], [address] VBG BE 2 mmol/L Normal -1.0-3.5 [facility] Comment on above: Performed By: #### L 500.2500 #### [facility] [address] [place], [address] VBG pCO2 32.3 mmHg Low 41-51 [facility] Comment on above: Performed By: #### L 500.2500 #### [facility] [address] [place], [address] VBG pH 7.50 High 7.32-7.42 [facility] Comment on above: Performed By: #### L 500.2500 #### [facility] [address] [place], [address] VBG PO2 113 mmHg High 25-40 [facility] Comment on above: Performed By: #### L 500.2500 #### [facility] [address] [place], [address] VBG SO2 99 High 50-70 [facility] Comment on above: Performed By: #### L 500.2500 #### [facility] [address] [place], [address] Venous blood base excess chloe surementOrdered By: Damien Dewey on 11-26-2024 Base excess Calc (BldV) [Moles/Vol] 2 mmol/L -1.0-3.5 [facility] Venous blood bicarbonate chloe surementOrdered By: Damien Dewey on 11-26-2024 HCO3 (Bld) [Moles/Vol] 25 mmol/L 22-26 [facility] Venous blood oxygen saturati on measurementOrdered By: Damien Dewey on 11-26-2024 Oxygen saturation in Blood 99 % High 50-70 [facility] Venous blood pH measurementO rdered By: Damien Dewey on 11-26-2024 pH (BldV) 7.50 [pH] High 7.32-7.42 [facility] Venous blood partial pressur e of carbon dioxide measurementOrdered By: Damien Dewey on 11-26-2024 CO2 (BldV) [Partial pressure] 32.3 mm[Hg] Low 41-51 [facility] Venous blood partial pressur e of oxygen measurementOrdered By: Damien Dewey on 11-26-2024 Oxygen (BldV) [Partial pressure] 113 mm[Hg] High 25-40 [facility] White blood cell (WBC) count Ordered By: Damien Dewey on 11-26-2024 WBC (Bld) [#/Vol] 8.8 10*3/uL 4.4-11.0 [facility] White blood cell countOrdere d By: Damien Dewey on 11-26-2024 White blood cell count 0 SEEN /hpf 0-5 [facility] Hospitalist Physician Office Visit Reporton 11-11-2024 Hospitalist Physician Office Visit Report [facility], [address] [place] [address] OFFICE VISIT Date of Service: 11/11/24 MR#: [id number] Acct: [id number] Name: KALIE DESIR Rep #: [id number] : 2000 Provider: MROALES Turcios ams Age/Sex: 24/F Location: [facility] [place] Status: Signed Intake Vital Signs 09/13/24 09:24 10/04/24 13:40 11/11/24 14:24 Height 4 ft 9 in 4 ft 11 in 4 ft 11 in Weight: 147 lb 2 oz BMI 29.7 BP 117/79 Intake Visit Reasons: Nexplanon Removal Chief Complaint: 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 Is patient in pain?: No Allergies bee venom protein (honey bee) (bee stings) Allergy (Severe, Verified 11/11/24 14:30) Anaphylaxis Sulfa (Sulfonamide Antibiotics) Allergy (Verified 11/11/24 14:30) Unknown prednisone Adverse Reaction (Verified 11/11/24 14:30) Vomiting Medications ???Medication ???Instructions ???Recorded ???Confirmed ???Type albuterol sulfate 90 mcg/actuation 2 puff inhalation Q4H PRN SHORTN ES 08/25/18 11/11/24 History aerosol inhaler (Ventolin HFA) OF BREATH/WHEEZING Ketone Urine Test (acetone (urine) #50 ea 11/05/21 11/11/24 Rx test) fluticasone propionate 50 2 spray intranasal DAILY NASAL 11/1011/11/24 History mcg/actuation nasal CONGESTION spray,suspension pen needle, diabetic 32 gauge x #120 ea 11/23/22 11/11/24 Rx / (BD Ultra-Fine Opal Pen Needle) hydroxyzine pamoate 25 mg capsule 25 mg PO QHS ITCHING #30 caps 11/11/24 Rx (Vistaril) blood-glucose sensor (Dexcom G6 #9 ea 11/10/23 11/11/24 Rx Sensor device) blood-glucose transmitter (Dexcom #1 ea 11/10/23 11/11/24 Rx G6 Transmitter device) metoclopramide HCl 5 mg tablet 5 mg PO DAILY PRN nausea and 05/1211/11/24 Rx (Reglan) vomiting 3 days #9 tabs insulin glargine-yfgn 100 unit/mL 30 unit (0.3 mL) subcut DAILY #0 mL 05/14/24 11/11/24 Rx (3 mL) subcutaneous pen insulin lispro 100 unit/mL 15 unit (0.15 mL) subcut TIDAC #0 05/14/24 11/11/24 Rx subcutaneous pen (Humalog KwikPen mL (U-100) Insulin) Is last menstrual period known: Yes Last Menstrual Period: 10/25/24 Post menopausal: No : No PFSH PFSH Medical History Obesity (BMI 30.0-34.9) Insulin dependent type 1 diabetes mellitus Tachycardia Diabetic ketoacidosis Hx of type 1 diabetes mellitus Non-compliance DKA (diabetic ketoacidosis) Type 1 diabetes mellitus with hyperglycemia Hypokalemia Hypophosphatemia Cannabis hyperemesis syndrome concurrent with and due to cannabis abuse DKA, type [address] History of marijuana use Anxiety and depression Insomnia Numbness and tingling Insulin pump titration Presence of insulin pump History of hepatitis A Asthma Diabetes type 1, controlled Surgical History History of placement of ear tubes Family History Grandmother Diabetes Sister Asthma Brother Asthma Mother Heart disease Social History adopted: No household members: spouse housing: other details: mobile home number of children: 0 current occupational status: employed current occupation: [employer] pets and animals: Yes pets and animals: dog(s) and other details: python history of recent travel: Yes ([place]) out of state: Yes out of country: No sexually active: Yes Smoking Status: Never smoker second hand exposure: Yes alcohol intake: never substance use type: marijuana and other details: Cannabis, last use 1 month prior, ingested. well-balanced diet: about half the time caffeine: No eating out: 1-3 times/week during the past year weight has: other details: fluxuates 20 # what type of physical activity do you participate in: walking and weight training jose/sabianist: None seatbelt use: always do you feel safe at home: Yes additional social history: - Markie HPI Nexplanon Removal Details: KALIE DESIR is a 24 year old who presents for nexplanon removal. would like to TTC in the next year discussed daily PNV. Female Reproductive History Last Menstrual Period: 10/25/24 ROS Const Constitutional: Reports system reviewed and no additional complaints, except as documented Cardio Card: Reports system reviewed and no additional complaints, except as documented Resp Resp: Reports system reviewed and no additional complaints, except as documented GI GI: Reports system reviewed and no additional complaints, except as documented : Reports system reviewed and no additional complaints, except as documented Musc Musc: Reports system reviewed and no additional complaints, except as documented Skin Skin/Breast: Reports system reviewed a (more content not included)... Normal [facility] Emergency Department Summary on 10-04-2024 Emergency Department Summary [facility] Medical Records Department [address] [place] [address] Emergency Department Summary 10/04/24 MR#: [id number] Acct: [id number] Name: KALIE DESIR Rep #: [id number] : 2000 24 From: Danitza Canada DO PCP: Minnie Hodge Status:REG ER Location: ED HPI History of Present Illness Chief Complaint: Upper Extremity Injury Informant: patient Narrative Narrative: Patient is a right-handed female presenting with right thumb pain. She has been going on for 2 weeks. She has associated swelling. Denies any fever or chills. Worse with range of motion. Does a lot of repetitive movements at work. Denies any initial trauma. Because it was still swelling and still having pain her significant other recommend she come in to have it evaluated. No other complaints or concerns reported at this time. No other numbness or tingling reported Has been taking Aleve twice a day for symptoms. [facility] Medical History Obesity (BMI 30.0-34.9) Insulin dependent type 1 diabetes mellitus Tachycardia Diabetic ketoacidosis Hx of type 1 diabetes mellitus Non-compliance DKA (diabetic ketoacidosis) Type 1 diabetes mellitus with hyperglycemia Hypokalemia Hypophosphatemia Cannabis hyperemesis syndrome concurrent with and due to cannabis abuse DKA, type [address] History of marijuana use Anxiety and depression Insomnia Numbness and tingling Insulin pump titration Presence of insulin pump History of hepatitis A Asthma Diabetes type 1, controlled Home Medications ???Medication ???Instructions ???Recorded ???Last Taken ???Type albuterol sulfate 90 mcg/actuation 2 puff inhalation Q4H PRN SHORTN ES 08/25/18 03/02/23 History aerosol inhaler (Ventolin HFA) OF BREATH/WHEEZING Ketone Urine Test (acetone (urine) #50 ea 11/05/21 Unknown Rx test) fluticasone propionate 50 2 spray intranasal DAILY NASAL 11/1002/12/23 History mcg/actuation nasal CONGESTION spray,suspension pen needle, diabetic 32 gauge x #120 ea 11/23/22 Unknown Rx (BD Ultra-Fine Opal Pen Needle) hydroxyzine pamoate 25 mg capsule 25 mg PO QHS ITCHING #30 caps 02/12/23 Rx (Vistaril) blood-glucose sensor (Dexcom G6 #9 ea 11/10/23 Unknown Rx Sensor device) blood-glucose transmitter (Dexcom #1 ea 11/10/23 Unknown Rx G6 Transmitter device) metoclopramide HCl 5 mg tablet 5 mg PO DAILY PRN nausea and 05/12 Unknown Rx (Reglan) vomiting 3 days #9 tabs insulin glargine-yfgn 100 unit/mL 30 unit (0.3 mL) subcut DAILY #0 mL 05/14/24 Unknown Rx (3 mL) subcutaneous pen insulin lispro 100 unit/mL 15 unit (0.15 mL) subcut TIDAC #0 05/14/24 Unknown Rx subcutaneous pen (Humalog KwikPen mL (U-100) Insulin) Allergy/AdvReac Type Severity Reaction Status Date / Time bee venom protein (honey Allergy Severe Anaphylaxis Verified 09/13/24 09:16 bee) (bee stings) Sulfa (Sulfonamide Allergy Unknown Verified 09/13/24 09:16 Antibiotics) prednisone AdvReac Vomiting Verified 09/13/24 09:16 Family History Grandmother Diabetes Sister Asthma Brother Asthma Mother Heart disease Surgical History History of placement of ear tubes Social History adopted: No household members: spouse housing: other details: mobile home number of children: 0 current occupational status: employed current occupation: [employer] pets and animals: Yes pets and animals: dog(s) and other details: python history of recent travel: Yes ([place]) out of state: Yes out of country: No sexually active: Yes Smoking Status: Never smoker second hand exposure: Yes alcohol intake: never substance use type: marijuana and other details: Cannabis, last use 1 month prior, ingested. well-balanced diet: about half the time caffeine: No eating out: 1-3 times/week during the past year weight has: other details: fluxuates 20 # what type of physical activity do you participate in: walking and weight training jose/sabianist: None seatbelt use: always do you feel safe at home: Yes additional social history: - Markie RIDLEY ED Constitutional Constitutional ED: Denies chills or fever(s) Musculoskeletal Musculoskeletal: Reports other Details: right thumb pain Integumentary Denies Abrasions or rash Neurologic Neurologic: Denies paresthesias or weakness EXAM Physical Exam Const Vital Signs: 10/04/24 13:40 Temperature 97.5 F L Temperature Source Temporal Pulse Rate 88 Respiratory Rate 15 Blood Pressure 139/82 H Blood Pressure Mean 101 Pulse Ox 99 Oxygen Delivery Method R (more content not included)... Normal [facility] Finger(s) Min 2 Viewson 09-18 Finger(s) Min [address] [facility] Imaging Services [address] [place], [place] [address] Finger(s) Min 2 Views MR#: [id number] Acct: [id number] Name: KALIE DESIR Rep #: [id number] : 2000 F 24 From: Jackeline Arenas PCP: Minnie Hodge Status: PRE ER Study: Finger(s) Min 2 Views Date of Exam: 10/04/24 Exam# [id number] Ordering Dr: Provider,Ed P. PROCEDURE: FINGER(S) MIN 2 VIEWS 10/04/2024 REASON FOR EXAM: PAIN TECHNIQUE: 3 view(s) of the right thumb COMPARISON: None RAD/Finger(s) Min 2 Views IMPRESSION: Mild degenerative changes are seen both of the right 1st interphalangeal joint and the 1st carpal- metacarpal joint. No significant degree of joint narrowing is seen. No fracture or dislocation is evident. Reading Location: [address] CC: Minnie Hodge; ED PHYSICIAN PROVIDER Timekeeper: Signed Normal [facility] Hospitalist Physician Office Visit Reporton 09-13-2024 Hospitalist Physician Office Visit Report [facility] [address], [address] [place] [address] OFFICE VISIT Date of Service: 09/13/24 MR#: [id number] Acct: [id number] Name: KALIE DESIR Rep #: [id number] : 2000 Provider: DONOVAN Olivo Age/Sex: 24/F Location: [facility] Status: Signed Intake Vital Signs 05/13/24 09:12 09/13/24 09:15 09/13/24 09:24 Height 4 ft 9 in 4 ft 9 in 4 ft 9 in Weight: 153 lb BMI 33.0 BP 120/78 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 Is patient in pain?: No Allergies bee venom protein (honey bee) (bee stings) Allergy (Severe, Verified 09/13/24 09:16) Anaphylaxis Sulfa (Sulfonamide Antibiotics) Allergy (Verified 09/13/24 09:16) Unknown prednisone Adverse Reaction (Verified 09/13/24 09:16) Vomiting Medications ???Medication ???Instructions ???Recorded ???Confirmed ???Type albuterol sulfate 90 mcg/actuation 2 puff inhalation Q4H PRN SHORTN ES 08/25/18 09/13/24 History aerosol inhaler (Ventolin HFA) OF BREATH/WHEEZING Ketone Urine Test (acetone (urine) #50 ea 11/05/21 09/13/24 Rx test) fluticasone propionate 50 2 spray intranasal DAILY NASAL 11/1009/13/24 History mcg/actuation nasal CONGESTION spray,suspension pen needle, diabetic 32 gauge x #120 ea 11/23/22 09/13/24 Rx (BD Ultra-Fine Opal Pen Needle) hydroxyzine pamoate 25 mg capsule 25 mg PO QHS ITCHING #30 caps 09/13/24 Rx (Vistaril) blood-glucose sensor (Dexcom G6 #9 ea 11/10/23 09/13/24 Rx Sensor device) blood-glucose transmitter (Dexcom #1 ea 11/10/23 09/13/24 Rx G6 Transmitter device) metoclopramide HCl 5 mg tablet 5 mg PO DAILY PRN nausea and 05/1209/13/24 Rx (Reglan) vomiting 3 days #9 tabs insulin glargine-yfgn 100 unit/mL 30 unit (0.3 mL) subcut DAILY #0 mL 05/14/24 09/13/24 Rx (3 mL) subcutaneous pen insulin lispro 100 unit/mL 15 unit (0.15 mL) subcut TIDAC #0 05/14/24 09/13/24 Rx subcutaneous pen (Humalog KwikPen mL (U-100) Insulin) Is last menstrual period known: Yes Post menopausal: No Patient : No : No Control Method: nexplanon [facility] Medical History Obesity (BMI 30.0-34.9) Insulin dependent type 1 diabetes mellitus Tachycardia Diabetic ketoacidosis Hx of type 1 diabetes mellitus Non-compliance DKA (diabetic ketoacidosis) Type 1 diabetes mellitus with hyperglycemia Hypokalemia Hypophosphatemia Cannabis hyperemesis syndrome concurrent with and due to cannabis abuse DKA, type [address] History of marijuana use Anxiety and depression Insomnia Numbness and tingling Insulin pump titration Presence of insulin pump History of hepatitis A Asthma Diabetes type 1, controlled Surgical History History of placement of ear tubes Family History Grandmother Diabetes Sister Asthma Brother Asthma Mother Heart disease Social History (Updated 09/13/24 @ 09:24 by Robbie Soriano) adopted: No household members: spouse housing: other details: mobile home number of children: 0 service: No current occupational status: employed current occupation: [employer] pets and animals: Yes pets and animals: dog(s) and other details: python history of recent travel: Yes ([place]) out of state: Yes out of country: No sexually active: Yes Smoking Status: Never smoker second hand exposure: Yes alcohol intake: never substance use type: marijuana and other details: Cannabis, last use 1 month prior, ingested. well-balanced diet: about half the time caffeine: No eating out: 1-3 times/week during the past year weight has: other details: fluxuates 20 # what type of physical activity do you participate in: walking and weight training jose/sabianist: None seatbelt use: always do you feel safe at home: Yes additional social history: - Markie HPI Encounter for routine gynecological examination Details: KALIE DESIR is a 24 year old who presents for annual exam. She is interested in having her Nexplanon removed; She had this placed in February of 2024-she would like to have this removed as they would like to have kids soon. She reports her menses have been irregular as well; she will have a menses and then spot in between her cycles. She see's endocrinology through [facility]. Type 1 diabetic. She reports no other issues or concerns. Last PAP: 02/2024; negative-per patient (completed through [facility]) History of abnormal PAP: none Last mammogram: None History of abnormal mammogram: None Colon cancer screening: None Other preventative health care screenings: Primary Care Doctor: None--seeking. ROS Const Constitutional: Denies chills, fatigue, fe (more content not included)... Normal [facility] 08-19-2024 [facility] Telephone (4CQ) THANGKALIE Jose Enrique ([id number]) 2000 F Date Time Provider Department 08/19/24 EVELYN CARR 4CQ During your visit today, we recorded the following information about you: Denisa Loaiza 08/19/2024 9:58 AM Signed Pt is requesting to have Nexplanon removal due to wanting to try to conceive. Please advise and place order. Thank you Lexi Campos RN 08/19/2024 10:46 AM Signed Nexplanon removal order pending. Please file in AT absence and will contact Pt to schedule appt. SARA Silva Sara, MD 08/19/2024 12:26 PM Signed Filed order Aicha Hines RN 08/19/2024 12:33 PM Signed Patient notified and voiced understanding. Transferred to [facility] to schedule. Aicha Hines RN Allergies As of Date: 08/19/2024 Noted Allergy Reaction BEE VENOM PROTEIN (HONEY BEE) 07/23/2022 10 - Anaphylaxis MELATONIN 06/07/2021 6 - Diarrhea PREDNISONE 05/12/2019 11 - Vomiting SULFATRIM DS 12/31/2011 11 - Vomiting Date Reviewed: 08/18/2024 Reviewed by: Jacqui Coronado MA - Fully Assessed Primary Visit Diagnosis:Nexplanon removal [Z30.46] Order(s):NEXPLANON REMOVAL [[id number]] Order #: [id number] Prescriptions as of 08/19/2024 - amoxicillin-clavulana te potassium (AUGMENTIN) 875-125 mg per tablet Take 1 tablet by mouth two times a day for 7 days. - fluticasone (FLONASE) 50 mcg/actuation nasal spray Use 2 Sprays in each nostril once daily. Rinse mouth after use. - insulin glargine (BASAGLAR KWIKPEN U-100 INSULIN) 100 unit/mL (3 mL) Inject 20 units daily - Insulin Rincon, Disposable, (PEN NEEDLE) 32 gauge x 5/32 Uses up to 5 daily with insulin injection. Give with each insulin administration. - insulin aspart U-100 (NOVOLOG FLEXPEN U-100 INSULIN) 100 unit/mL (3 mL) Inject subcutaneously. Inject 15 units with meals and sliding scale as needed TDD 60 units - OMNIPOD 5 G6 PODS, GEN 5, crtg CHANGE EVERY 48 HOURS - etonogestrel (NEXPLANON) subdermal implant 68 mg 1 Each by SUBDERMAL route as directed. - hydrOXYzine pamoate (VISTARIL) 25 mg capsule daily at bedtime. - potassium chloride ER (KLOR-CON) 20 mEq tablet Take 20 mEq by mouth as needed. - DEXCOM G6 SENSOR cooper as directed. - DEXCOM G6 TRANSMITTER cooper as directed. - fluticasone (FLONASE) 50 mcg/actuation nasal spray Use 2 Sprays in each nostril once daily. Rinse mouth after use. - albuterol HFA (VENTOLIN HFA) 90 mcg/actuation inhaler Inhale 2 Puffs as instructed every 4 hours as needed. - etonogestrel (NEXPLANON) subdermal implant 68 mg ONCE - Alcohol Swabs (ALCOHOL PREP PADS) padm Apply 1 application to affected area every 4 hours as needed (blood glucose check). - Inhalational Spacing Device (AEROCHAMBER MASK LARGE) spcr 1 Device as needed. Meds Comments as of 03/04/2019: OTC pain medication. Problem List As Of Date 08/19/2024 Noted Resolved Type 1 diabetes mellitus without complication (*12/31/2011 Asthma [J45.909] 12/31/2011 Chronic lymphocytic thyroiditis [E06.3] 01/11/2016 Strain of back [S39.012A] 07/29/2016 03/04/2019 Cervicalgia [M54.2] 07/29/2016 03/04/2019 ARELIS (generalized anxiety disorder) [F41.1] 01/27/2024 Diabetic eye exam (HCC) [Z01.00, E11.9] 01/28/2024 Encounter Status:Closed by AICHA HINES on 08/19/24 [facility] CNOVon 08-18-2024 CNOV Office Visit (UCWSTR ) KALIE DESIR ([id number]) 2000 F Date Time Provider Department 08/18/24 12:45 PM ARIS CHOW [facility] During your visit today, we recorded the following information about you: Temperature Pulse Respiration Blood pressure 98.1 degrees 102/minute 16/minute 122/70 Weight 66.4 kg Aris Chow APRN.CHANGER FIXER 08/18/2024 1:00 PM Signed Subjective HPI HPI Kalie Ariasley is a 24 year old female who presents today for CC of sinus pressure, cough. This started 10 days ago. Has tried otc medication for relief. Symptoms are worsened by nothing. Risk factors sick exposures. Nonsmoker. DM1 Diarrhea/nausea for 1 day, close exposure to norovirus. Denies possibility of being . .Patient presents with: Nasal Congestion: drainage, cough x 10 days, diarrhea, nausea x 1 day PAST MEDICAL HISTORY Diagnosis Date Asthma Constipation 08/07/2016 Diabetes mellitus type 1 (HCC) Hepatitis A 02/15/2019 PAST SURGICAL HISTORY Procedure Laterality Date ADENOIDECTOMY PRIMARY age 18 month MYRINGOTOMY W TUBE,BILATERAL(2) age 18 months NEXPLANON INSERTION 07/06/2014 ALLERGIES Bee Venom Protein (Honey Bee), Melatonin, Penicillins, Prednisone, and Sulfatrim Ds MEDICATIONS insulin glargine (BASAGLAR KWIKPEN U-100 INSULIN) 100 unit/mL (3 mL) Inject 20 units daily Insulin Rincon, Disposable, (PEN NEEDLE) 32 gauge x Uses up to 5 daily with insulin injection. Give with each insulin administration. insulin aspart U-100 (NOVOLOG FLEXPEN U-100 INSULIN) 100 unit/mL (3 mL) Inject subcutaneously. Inject 15 units with meals and sliding scale as needed TDD 60 units OMNIPOD 5 G6 PODS, GEN 5, crtg CHANGE EVERY 48 HOURS hydrOXYzine pamoate (VISTARIL) 25 mg capsule daily at bedtime. potassium chloride ER (KLOR-CON) 20 mEq tablet Take 20 mEq by mouth as needed. DEXCOM G6 SENSOR cooper as directed. DEXCOM G6 TRANSMITTER cooper as directed. fluticasone (FLONASE) 50 mcg/actuation nasal spray Use 2 Sprays in each nostril once daily. Rinse mouth after use. albuterol HFA (VENTOLIN HFA) 90 mcg/actuation inhaler Inhale 2 Puffs as instructed every 4 hours as needed. etonogestrel (NEXPLANON) subdermal implant 68 mg ONCE Alcohol Swabs (ALCOHOL PREP PADS) padm Apply 1 application to affected area every 4 hours as needed (blood glucose check). Inhalational Spacing Device (AEROCHAMBER MASK LARGE) spcr 1 Device as needed. etonogestrel (NEXPLANON) subdermal implant 68 mg 1 Each by SUBDERMAL route as directed. FAMILY HISTORY Problem Relation Age of Onset Hypertension Mother None Father Allergies Sister None Maternal Grandmother None Maternal Grandfather Diabetes Paternal Grandmother Hypertension Paternal Grandfather Social History Tobacco Use Smoking status: Never Passive exposure: Yes Smokeless tobacco: Never Tobacco comments: parents inside/outside Vaping Use Vaping status: Never Used Substance Use Topics Alcohol use: Yes Comment: occasional Drug use: Yes Types: Marijuana Comment: Hx of marijuana Review of Systems Constitutional: Positive for malaise/fatigue. Negative for fever. HENT: Positive for congestion, sinus pain and sore throat. Negative for ear pain and nosebleeds. Respiratory: Positive for cough. Negative for shortness of breath and wheezing. Gastrointestinal: Positive for diarrhea and nausea. Negative for abdominal pain and vomiting. Musculoskeletal: Negative for neck pain. Objective Blood pressure 122/70, pulse 102, temperature 36.7 ?C (98.1 ?F), resp. rate 16, weight 66.4 kg (146 lb 6.2 oz), last menstrual period 02/22/2024, SpO2 98%. Physical Exam Constitutional: General: She is not in acute distress. Appearance: Normal appearance. She is not toxic-appearing or diaphoretic. HENT: Head: Normocephalic and atraumatic. Right Ear: Hearing, tympanic membrane, ear canal and external ear normal. Left Ear: Hearing, tympanic membrane, ear canal and external ear normal. Nose: Nose normal. Mouth/Throat: Pharynx: Uvula midline. No pharyngeal swelling, oropharyngeal exudate, posterior oropharyngeal erythema or uvula swelling. Eyes: General: Lids are normal. No scleral icterus. Right eye: No discharge. Left eye: No discharge. Conjunctiva/sclera: Conjunctivae normal. Pupils: Pupils are equal, round, and reactive to light. Neck: Trachea: Trachea normal. Cardiovascular: Rate and Rhythm: Normal rate and regular rhythm. Heart sounds: Normal heart sounds. Pulmonary: Effort: Pulmonary effort is normal. Breath sounds: Normal breath sounds. Abdominal: General: Bowel sounds are normal. Palpations: Abdomen is soft. Tenderness: There is abdominal tenderness (achy) in the right lower quadrant and left lower quadrant. Musculoskeletal: Cervical back: Normal range of motion and neck supple. Lymphadenopathy: Cervical: No cervical (more content not included)... [facility] Telephone (ENWSTR) KALIE DESIR ([id number]) 2000 F Date Time Provider Department 06/15/24 VERONIKA DORADO During your visit today, we recorded the following information about you: Lisbeth North 06/15/2024 12:25 PM Signed [facility] called and stated they need to know the maximum units per day the patient is taking for the Novolog. Please advise Nadya Tong RN 06/15/2024 2:21 PM Signed Per [facility] in [place], Pt requested that the Rx be transferred to [facility] in [place] today. Called pharmacist at [facility] to notify them that per the last Rx written by Veronika Dorado, TDD was 60 units for Novolog. Nadya Tong RN June 15, 2024 2:20 PM Allergies As of Date: 06/15/2024 Noted Allergy Reaction BEE VENOM PROTEIN (HONEY BEE) 07/23/2022 10 - Anaphylaxis MELATONIN 06/07/2021 6 - Diarrhea PENICILLINS 12/31/2011 2 - Rash PREDNISONE 05/12/2019 11 - Vomiting SULFATRIM DS 12/31/2011 11 - Vomiting Date Reviewed: 05/07/2024 Reviewed by: Rose Díaz MA - Fully Assessed Reason for Visit: Medication Problem [65] Prescriptions as of 06/15/2024 - insulin glargine (BASAGLAR KWIKPEN U-100 INSULIN) 100 unit/mL (3 mL) Inject 20 units daily - Insulin Rincon, Disposable, (PEN NEEDLE) 32 gauge x 5/32 Uses up to 5 daily with insulin injection. Give with each insulin administration. - insulin aspart U-100 (NOVOLOG FLEXPEN U-100 INSULIN) 100 unit/mL (3 mL) Inject subcutaneously. Inject 15 units with meals and sliding scale as needed TDD 60 units - OMNIPOD 5 G6 PODS, GEN 5, crtg CHANGE EVERY 48 HOURS - etonogestrel (NEXPLANON) subdermal implant 68 mg 1 Each by SUBDERMAL route as directed. - hydrOXYzine pamoate (VISTARIL) 25 mg capsule daily at bedtime. - potassium chloride ER (KLOR-CON) 20 mEq tablet Take 20 mEq by mouth as needed. - DEXCOM G6 SENSOR cooper as directed. - DEXCOM G6 TRANSMITTER cooper as directed. - fluticasone (FLONASE) 50 mcg/actuation nasal spray Use 2 Sprays in each nostril once daily. Rinse mouth after use. - albuterol HFA (VENTOLIN HFA) 90 mcg/actuation inhaler Inhale 2 Puffs as instructed every 4 hours as needed. - etonogestrel (NEXPLANON) subdermal implant 68 mg ONCE - Alcohol Swabs (ALCOHOL PREP PADS) padm Apply 1 application to affected area every 4 hours as needed (blood glucose check). - Inhalational Spacing Device (AEROCHAMBER MASK LARGE) spcr 1 Device as needed. Meds Comments as of 03/04/2019: OTC pain medication. Problem List As Of Date 06/15/2024 Noted Resolved Type 1 diabetes mellitus without complication (*12/31/2011 Asthma [J45.909] 12/31/2011 Chronic lymphocytic thyroiditis [E06.3] 01/11/2016 Strain of back [S39.012A] 07/29/2016 03/04/2019 Cervicalgia [M54.2] 07/29/2016 03/04/2019 ARELIS (generalized anxiety disorder) [F41.1] 01/27/2024 Diabetic eye exam (HCC) [Z01.00, E11.9] 01/28/2024 Encounter Status:Closed by NADYA TONG on 06/15/24 Normal [facility] Basic Metabolic Profile (BMP )on 05-14-2024 BUN/CRE 10.2 RATIO Normal 05-09 [facility] Comment on above: Order Comment: Call MD with results STAT Performed By: #### L [id number] #### [facility] [address] [place], [place], [id number] CA,Total 8.3 mg/dL Low 8.5-10.1 [facility] Comment on above: Order Comment: Call MD with results STAT Performed By: #### L [id number] #### [facility] [address] [place], [address] Chloride [Moles/Vol] 112 mmol/L High 98-107 [facility] Comment on above: Order Comment: Call MD with results STAT Performed By: #### L [id number] #### [facility] [address] [place], [address] CO2 [Moles/Vol] 21.0 mmol/L Normal 21.0-32.0 [facility] Comment on above: Order Comment: Call MD with results STAT Performed By: #### L [id number] #### [facility] [address] [place], [address] Creatinine [Mass/Vol] 0.79 mg/dL Normal 0.55-1.02 [facility] Comment on above: Order Comment: Call MD with results STAT Result Comment: The validity of the calculated GFR GFRAA in patients over 70 years has not been determined. Clinical correlation is essential. Performed By: #### L [id number] #### [facility] [address] [place], [address] ECRCL 89.44 ml/min Normal [facility] Comment on above: Order Comment: Call MD with results STAT Performed By: #### L [id number] #### [facility] [address] [place], [address] EST GFR - AA 114 mL/min Normal >60 [facility] Comment on above: Order Comment: Call MD with results STAT Result Comment: Afri can Prydeinig GFR Calc Performed By: #### L [id number] #### [facility] [address] [place], [address] GAP 6 Normal 5-15 [facility] Comment on above: Order Comment: Call MD with results STAT Performed By: #### L [id number] #### [facility] [address] [place], [address] GFR/1.73 sq M.predicted among non-blacks MDRD (S/P/Bld) [Vol rate/Area] 94 mL/min/{1.73_m2} Normal >60 [facility] Comment on above: Order Comment: Call MD with results STAT Result Comment: Non- GFR Calc Performed By: #### L [id number] #### [facility] [address] [place], [address] Glucose [Mass/Vol] 221 mg/dL High 74-106 [facility] Comment on above: Order Comment: Call MD with results STAT Result Comment: Gluc ose result greater than or equal to 200 mg/dL suggests DIABETES MELLITUS per A.D.A. criteria. Performed By: #### L 9000.0810 #### [facility] [address] [place], [address] Potassium [Moles/Vol] 3.0 mmol/L Low 3.5-5.1 [facility] Comment on above: Order Comment: Call MD with results STAT Performed By: #### L 9000.0810 #### [facility] [address] [place], [address] Sodium [Moles/Vol] 139 mmol/L Normal 136-145 [facility] Comment on above: Order Comment: Call MD with results STAT Performed By: #### L 9000.0810 #### [facility] [address] [place], [address] Urea nitrogen [Mass/Vol] 8 mg/dL Normal 7-18 [facility] Comment on above: Order Comment: Call MD with results STAT Performed By: #### L 9000.0810 #### [facility] [address] [place], [address] BUN Normal 7-18 [facility] Comment on above: Order Comment: Call MD with results STAT Result Comment: Sharon junior via OM: Order Changed Performed By: #### L 500.2500 #### [facility] [address] [place], [address] BUN/CRE Normal 10-20 [facility] Comment on above: Order Comment: Call MD with results STAT Result Comment: Sharon elled via OM: Order Changed Performed By: #### L 500.2500 #### [facility] [address] [place], [address] CA,Total Normal 8.5-10.1 [facility] Comment on above: Order Comment: Call MD with results STAT Result Comment: Sharon elled via OM: Order Changed Performed By: #### L 500.2500 #### [facility] [address] [place], [address] CL Normal 98-107 [facility] Comment on above: Order Comment: Call MD with results STAT Result Comment: Sharon elled via OM: Order Changed Performed By: #### L 500.2500 #### [facility] [address] [place], [address] CO2 Normal 21.0-32.0 [facility] Comment on above: Order Comment: Call MD with results STAT Result Comment: Sharon elled via OM: Order Changed Performed By: #### L 500.2500 #### [facility] [address] [place], [address] CREAT,SERUM Normal 0.55-1.02 [facility] Comment on above: Order Comment: Call MD with results STAT Result Comment: Sharon elled via OM: Order Changed Performed By: #### L 500.2500 #### [facility] [address] [place], [address] EST GFR Normal >60 [facility] Comment on above: Order Comment: Call MD with results STAT Result Comment: Sharon elled via OM: Order Changed Performed By: #### L 500.2500 #### [facility] [address] [place], [address] EST GFR - AA Normal >60 [facility] Comment on above: Order Comment: Call MD with results STAT Result Comment: Canc elled via OM: Order Changed Performed By: #### L 500.2500 #### [facility] [address] [place], [address] GAP Normal 5-15 [facility] Comment on above: Order Comment: Call MD with results STAT Result Comment: Canc elled via OM: Order Changed Performed By: #### L 500.2500 #### [facility] [address] [place], [address] GLU Normal 74-106 [facility] Comment on above: Order Comment: Call MD with results STAT Result Comment: Canc elled via OM: Order Changed Performed By: #### L 500.2500 #### [facility] [address] [place], [address] Potassium Normal 3.5-5.1 [facility] Comment on above: Order Comment: Call MD with results STAT Result Comment: Canc elled via OM: Order Changed Performed By: #### L 500.2500 #### [facility] [address] [place], [address] Basic Metabolic Profile (BMP) Normal 136-145 [facility] Comment on above: Order Comment: Call MD with results STAT Result Comment: Canc elled via OM: Order Changed Performed By: #### L 500.2500 #### [facility] [address] [place], [address] Bedside Glucoseon 05-14-2024 FINGERSTICK GLU 233 mg/dL High 74-106 [facility] Comment on above: Result Comment: FAY HANNAHENT OF PATIENT CARE PER NURSING PROTOCOL Performed By: #### L [id number], L700.6800, L500.4050, L501.2450, L100.0100 #### [facility] [address] [place], [address] FINGERSTICK GLU 268 mg/dL High 74-106 [facility] Comment on above: Result Comment: FAY ARCINIEGA OF PATIENT CARE PER NURSING PROTOCOL Performed By: #### L [id number], L700.6800, L500.4050, L501.2450, L100.0100 #### [facility] [address] [place], [address] Acetone Serumon 05-13-2024 ACETONE SERUM SMALL Abnormal NEG [facility] Comment on above: Performed By: #### L 400.0001 #### [facility] [address] [place], [address] ACETONE SERUM MODERATE Abnormal NEG [facility] Comment on above: Performed By: #### L [id number], L700.6800, L500.4050, L501.2450, L100.0100 #### [facility] [address] [place], [address] Basic Metabolic Profile (BMP )on 05-13-2024 BUN Normal 7-18 [facility] Comment on above: Order Comment: Call MD with results STAT Result Comment: DUPL ICATE Performed By: #### L 501.080 #### [facility] [address] [place], [address] BUN/CRE Normal 10-20 [facility] Comment on above: Order Comment: Call MD with results STAT Result Comment: DUPL ICATE Performed By: #### L 501.080 #### [facility] [address] [place], [address] CA,Total Normal 8.5-10.1 [facility] Comment on above: Order Comment: Call MD with results STAT Result Comment: DUPL ICATE Performed By: #### L 501.080 #### [facility] [address] [place], [address] CL Normal 98-107 [facility] Comment on above: Order Comment: Call MD with results STAT Result Comment: DUPL ICATE Performed By: #### L 501.080 #### [facility] [address] [place], [address] CO2 Normal 21.0-32.0 [facility] Comment on above: Order Comment: Call MD with results STAT Result Comment: DUPL ICATE Performed By: #### L 501.080 #### [facility] [address] [place], [address] CREAT,SERUM Normal 0.55-1.02 [facility] Comment on above: Order Comment: Call MD with results STAT Result Comment: DUPL ICATE Performed By: #### L 501.080 #### [facility] [address] [place], [address] EST GFR Normal >60 [facility] Comment on above: Order Comment: Call MD with results STAT Result Comment: DUPL ICATE Performed By: #### L 501.080 #### [facility] [address] [place], [address] EST GFR - AA Normal >60 [facility] Comment on above: Order Comment: Call MD with results STAT Result Comment: DUPL ICATE Performed By: #### L 501.080 #### [facility] [address] [place], [address] GAP Normal 5-15 [facility] Comment on above: Order Comment: Call MD with results STAT Result Comment: DUPL ICATE Performed By: #### L 501.080 #### [facility] [address] [place], [address] GLU Normal 74-106 [facility] Comment on above: Order Comment: Call MD with results STAT Result Comment: DUPL ICATE Performed By: #### L 501.080 #### [facility] [address] [place], [address] Potassium Normal 3.5-5.1 [facility] Comment on above: Order Comment: Call MD with results STAT Result Comment: DUPL ICATE Performed By: #### L 501.080 #### [facility] [address] [place], [address] Basic Metabolic Profile (BMP) Normal 136-145 [facility] Comment on above: Order Comment: Call MD with results STAT Result Comment: DUPL ICATE Performed By: #### L 501.080 #### [facility] [address] [place], [address] BUN Normal 7-18 [facility] Comment on above: Order Comment: Call MD with results STAT Result Comment: DUPL ICATE Performed By: #### L 501.080 #### [facility] [address] [place], [address] BUN/CRE Normal 10-20 [facility] Comment on above: Order Comment: Call MD with results STAT Result Comment: DUPL ICATE Performed By: #### L 501.080 #### [facility] [address] [place], [address] CA,Total Normal 8.5-10.1 [facility] Comment on above: Order Comment: Call MD with results STAT Result Comment: DUPL ICATE Performed By: #### L 501.080 #### [facility] [address] [place], [address] CL Normal 98-107 [facility] Comment on above: Order Comment: Call MD with results STAT Result Comment: DUPL ICATE Performed By: #### L 501.080 #### [facility] [address] [place], [address] CO2 Normal 21.0-32.0 [facility] Comment on above: Order Comment: Call MD with results STAT Result Comment: DUPL ICATE Performed By: #### L 501.080 #### [facility] [address] [place], [address] CREAT,SERUM Normal 0.55-1.02 [facility] Comment on above: Order Comment: Call MD with results STAT Result Comment: DUPL ICATE Performed By: #### L 501.080 #### [facility] [address] [place], [address] EST GFR Normal >60 [facility] Comment on above: Order Comment: Call MD with results STAT Result Comment: DUPL ICATE Performed By: #### L 501.080 #### [facility] [address] [place], [address] EST GFR - AA Normal >60 [facility] Comment on above: Order Comment: Call MD with results STAT Result Comment: DUPL ICATE Performed By: #### L 501.080 #### [facility] [address] [place], [address] GAP Normal 5-15 [facility] Comment on above: Order Comment: Call MD with results STAT Result Comment: DUPL ICATE Performed By: #### L 501.080 #### [facility] [address] [place], [address] GLU Normal 74-106 [facility] Comment on above: Order Comment: Call MD with results STAT Result Comment: DUPL ICATE Performed By: #### L 501.080 #### [facility] [address] [place], [address] Potassium Normal 3.5-5.1 [facility] Comment on above: Order Comment: Call MD with results STAT Result Comment: DUPL ICATE Performed By: #### L 501.080 #### [facility] [address] [place], [address] Basic Metabolic Profile (BMP) Normal 136-145 [facility] Comment on above: Order Comment: Call MD with results STAT Result Comment: DUPL ICATE Performed By: #### L 501.080 #### [facility] [address] [place], [address] BUN/CRE 10.9 RATIO Normal 10-20 [facility] Comment on above: Order Comment: Call MD with results STAT Performed By: #### L 501.080 #### [facility] [address] [place], [address] CA,Total 8.0 mg/dL Low 8.5-10.1 [facility] Comment on above: Order Comment: Call MD with results STAT Performed By: #### L 501.080 #### [facility] [address] [place], [address] Chloride [Moles/Vol] 115 mmol/L High 98-107 [facility] Comment on above: Order Comment: Call MD with results STAT Performed By: #### L 501.080 #### [facility] [address] [place], [address] CO2 [Moles/Vol] 17.0 mmol/L Low 21.0-32.0 [facility] Comment on above: Order Comment: Call MD with results STAT Performed By: #### L 501.080 #### [facility] [address] [place], [address] Creatinine [Mass/Vol] 0.82 mg/dL Normal 0.55-1.02 [facility] Comment on above: Order Comment: Call MD with results STAT Result Comment: The validity of the calculated GFR GFRAA in patients over 70 years has not been determined. Clinical correlation is essential. Performed By: #### L 501.080 #### [facility] [address] [place], [address] ECRCL 86.17 ml/min Normal [facility] Comment on above: Order Comment: Call MD with results STAT Performed By: #### L 501.080 #### [facility] [address] [place], [address] EST GFR - AA 108 mL/min Normal >60 [facility] Comment on above: Order Comment: Call MD with results STAT Result Comment: Afri can Prydeinig GFR Calc Performed By: #### L 501.080 #### [facility] [address] [place], [address] GAP 7 Normal 5-15 [facility] Comment on above: Order Comment: Call MD with results STAT Performed By: #### L 501.080 #### [facility] [address] [place], [address] GFR/1.73 sq M.predicted among non-blacks MDRD (S/P/Bld) [Vol rate/Area] 89 mL/min/{1.73_m2} Normal >60 [facility] Comment on above: Order Comment: Call MD with results STAT Result Comment: Non- GFR Calc Performed By: #### L 501.080 #### [facility] [address] [place], [address] Glucose [Mass/Vol] 184 mg/dL High 74-106 [facility] Comment on above: Order Comment: Call MD with results STAT Result Comment: Fast ing Glucose result greater than or equal to 126 mg/dL suggests DIABETES MELLITUS per A.D.A. criteria. Performed By: #### L 501.080 #### [facility] [address] [place], [address] Potassium [Moles/Vol] 3.8 mmol/L Normal 3.5-5.1 [facility] Comment on above: Order Comment: Call MD with results STAT Performed By: #### L 501.080 #### [facility] [address] [place], [address] Sodium [Moles/Vol] 139 mmol/L Normal 136-145 [facility] Comment on above: Order Comment: Call MD with results STAT Performed By: #### L 501.080 #### [facility] [address] [place], [address] Urea nitrogen [Mass/Vol] 9 mg/dL Normal 7-18 [facility] Comment on above: Order Comment: Call MD with results STAT Performed By: #### L 501.080 #### [facility] [address] [place], [address] BUN/CRE 10.9 RATIO Normal 10-20 [facility] Comment on above: Order Comment: Call MD with results STAT Performed By: #### L [id number], L700.6800, L500.4050, L501.2450, L100.0100 #### [facility] [address] [place], [address] CA,Total 8.0 mg/dL Low 8.5-10.1 [facility] Comment on above: Order Comment: Call MD with results STAT Performed By: #### L [id number], L700.6800, L500.4050, L501.2450, L100.0100 #### [facility] [address] [place], [address] Chloride [Moles/Vol] 115 mmol/L High 98-107 [facility] Comment on above: Order Comment: Call MD with results STAT Performed By: #### L [id number], L700.6800, L500.4050, L501.2450, L100.0100 #### [facility] [address] [place], [address] CO2 [Moles/Vol] 15.0 mmol/L Low 21.0-32.0 [facility] Comment on above: Order Comment: Call MD with results STAT Performed By: #### L 501.6901, L700.6800, L500.4050, L501.2450, L100.0100 #### [facility] [address] [place], [address] Creatinine [Mass/Vol] 0.92 mg/dL Normal 0.55-1.02 [facility] Comment on above: Order Comment: Call MD with results STAT Result Comment: The validity of the calculated GFR GFRAA in patients over 70 years has not been determined. Clinical correlation is essential. Performed By: #### L 501.6901, L700.6800, L500.4050, L501.2450, L100.0100 #### [facility] [address] [place], [address] ECRCL 76.80 ml/min Normal [facility] Comment on above: Order Comment: Call MD with results STAT Performed By: #### L 501.6901, L700.6800, L500.4050, L501.2450, L100.0100 #### [facility] [address] [place], [address] EST GFR - AA 95 mL/min Normal >60 [facility] Comment on above: Order Comment: Call MD with results STAT Result Comment: Afri can Prydeinig GFR Calc Performed By: #### L 501.6901, L700.6800, L500.4050, L501.2450, L100.0100 #### [facility] [address] [place], [address] GAP 11 Normal 5-15 [facility] Comment on above: Order Comment: Call MD with results STAT Performed By: #### L 501.6901, L700.6800, L500.4050, L501.2450, L100.0100 #### [facility] [address] [place], [address] GFR/1.73 sq M.predicted among non-blacks MDRD (S/P/Bld) [Vol rate/Area] 78 mL/min/{1.73_m2} Normal >60 [facility] Comment on above: Order Comment: Call MD with results STAT Result Comment: Non- GFR Calc Performed By: #### L 501.6901, L700.6800, L500.4050, L501.2450, L100.0100 #### [facility] [address] [place], [address] Glucose [Mass/Vol] 233 mg/dL High 74-106 [facility] Comment on above: Order Comment: Call MD with results STAT Result Comment: Gluc ose result greater than or equal to 200 mg/dL suggests DIABETES MELLITUS per A.D.A. criteria. Performed By: #### L 501.6901, L700.6800, L500.4050, L501.2450, L100.0100 #### [facility] [address] [place], [address] Potassium [Moles/Vol] 3.6 mmol/L Normal 3.5-5.1 [facility] Comment on above: Order Comment: Call MD with results STAT Performed By: #### L 501.6901, L700.6800, L500.4050, L501.2450, L100.0100 #### [facility] [address] [place], [address] Sodium [Moles/Vol] 141 mmol/L Normal 136-145 [facility] Comment on above: Order Comment: Call MD with results STAT Performed By: #### L 501.6901, L700.6800, L500.4050, L501.2450, L100.0100 #### [facility] [address] [place], [address] Urea nitrogen [Mass/Vol] 10 mg/dL Normal 7-18 [facility] Comment on above: Order Comment: Call MD with results STAT Performed By: #### L 501.6901, L700.6800, L500.4050, L501.2450, L100.0100 #### [facility] [address] [place], [address] BUN/CRE 16.1 RATIO Normal 10-20 [facility] Comment on above: Order Comment: CRITI DONI VALUE CALLED TO SHALONDA TRUJILLO 11/27/24 1434 Gaby Macdonald. RESULTS READ BACK BY SAME. CLEAN CATCH Performed By: #### L 400.0001 #### [facility] [address] [place], [address] CA,Total 9.0 mg/dL Normal 8.5-10.1 [facility] Comment on above: Order Comment: CRITI DONI VALUE CALLED TO SHALONDA [place] 11/27/24 1434 Gaby Macdonald. RESULTS READ BACK BY SAME. CLEAN CATCH Performed By: #### L 400.0001 #### [facility] [address] [place], [address] Chloride [Moles/Vol] 112 mmol/L High 98-107 [facility] Comment on above: Order Comment: [facility] Gaby Macdonald. RESULTS READ BACK BY SAME. CLEAN CATCH Performed By: #### L 400.0001 #### [facility] [address] [place], [address] CO2 [Moles/Vol] 10.0 mmol/L Low 21.0-32.0 [facility] Comment on above: Order Comment: CRITI DONI VALUE [facility] Gaby Macdonald. RESULTS READ BACK BY SAME. CLEAN CATCH Performed By: #### L 400.0001 #### [facility] [address] [place], [address] Creatinine [Mass/Vol] 0.93 mg/dL Normal 0.55-1.02 [facility] Comment on above: Order Comment: CRITI DONI VALUE CALLED TO [facility] 11/27/24 [facility] Gaby Macdonald. RESULTS READ BACK BY SAME. CLEAN CATCH Result Comment: The validity of the calculated GFR GFRAA in patients over 70 years has not been determined. Clinical correlation is essential. Performed By: #### L 400.0001 #### [facility] [address] [place], [address] ECRCL 75.97 ml/min Normal [facility] Comment on above: Order Comment: CRITI DONI VALUE CALLED TO SHALONDA TRUJILLO 11/27/24 1434 Gaby Macdonald. RESULTS READ BACK BY SAME. CLEAN CATCH Performed By: #### L 400.0001 #### [facility] [address] [place], [address] EST GFR - AA 94 mL/min Normal >60 [facility] Comment on above: Order Comment: CRITI DONI VALUE CALLED TO SHALONDA [place] 11/27/24 1434 Gaby Macdonald. RESULTS READ BACK BY SAME. CLEAN CATCH Result Comment: Afri can Prydeinig GFR Calc Performed By: #### L 400.0001 #### [facility] [address] [place], [address] GAP 18 High 5-15 [facility] Comment on above: Order Comment: CRITI DONI VALUE CALLED TO [place]ALONDA [place] 11/27/24 [facility] Gayb Macdonald. RESULTS READ BACK BY SAME. CLEAN CATCH Performed By: #### L 400.0001 #### [facility] [address] [place], [address] GFR/1.73 sq M.predicted among non-blacks MDRD (S/P/Bld) [Vol rate/Area] 77 mL/min/{1.73_m2} Normal >60 [facility] Comment on above: Order Comment: CRITI DONI VALUE CALLED TO SHALONDA [place] 11/27/24 1434 Gaby Macdonald. RESULTS READ BACK BY SAME. CLEAN CATCH Result Comment: Non- GFR Calc Performed By: #### L 400.0001 #### [facility] [address] [place], [place], [address] ([address] Glucose [Mass/Vol] 290 mg/dL High 74-106 [facility] Comment on above: Order Comment: CRITI DONI VALUE CALLED TO SHALONDA [place] 11/27/24 1434 Gaby Macdonald. RESULTS READ BACK BY SAME. CLEAN CATCH Result Comment: Gluc ose result greater than or equal to 200 mg/dL suggests DIABETES MELLITUS per A.D.A. criteria. Performed By: #### L 400.0001 #### [facility] [address] [place], [address] Potassium [Moles/Vol] 4.3 mmol/L Normal 3.5-5.1 [facility] Comment on above: Order Comment: CRITI DONI VALUE CALLED TO SHALONDA TRUJILLO 11/27/24 1434 Gabyjai Macdonald. RESULTS READ BACK BY SAME. CLEAN CATCH Result Comment: Slig ht Hemolysis, Result may be falsely increased. Performed By: #### L 400.0001 #### [facility] [address] [place], [address] Sodium [Moles/Vol] 140 mmol/L Normal 136-145 [facility] Comment on above: Order Comment: CRITI DONI VALUE CALLED TO SHALONDA TRUJILLO 11/27/24 1434 Gaby Macdonald. RESULTS READ BACK BY SAME. CLEAN CATCH Performed By: #### L 400.0001 #### [facility] [address] [place], [address] Urea nitrogen [Mass/Vol] 15 mg/dL Normal 7-18 [facility] Comment on above: Order Comment: CRITI DONI VALUE CALLED TO SHALONDA TRUJILLO 11/27/24 1434 Gaby Macdonald. RESULTS READ BACK BY SAME. CLEAN CATCH Performed By: #### L 400.0001 #### [facility] [address] [place], [address] Bedside Glucoseon 05-13-2024 FINGERSTICK GLU 99 mg/dL Normal 74-106 [facility] Comment on above: Result Comment: FAY GEMENT OF PATIENT CARE PER NURSING PROTOCOL Performed By: #### L 501.6901, L700.6800, L500.4050, L501.2450, L100.0100 #### [facility] [address] [place], [address] FINGERSTICK GLU 154 mg/dL High 74-106 [facility] Comment on above: Result Comment: FAY GEMENT OF PATIENT CARE PER NURSING PROTOCOL Performed By: #### L 400.0001 #### [facility] [address] [place], [address] FINGERSTICK GLU 111 mg/dL High 74-106 [facility] Comment on above: Result Comment: FAY GEMENT OF PATIENT CARE PER NURSING PROTOCOL Performed By: #### L 9000.0810 #### [facility] [address] [place], [address] FINGERSTICK GLU 134 mg/dL High 74-106 [facility] Comment on above: Result Comment: FAY GEMENT OF PATIENT CARE PER NURSING PROTOCOL Performed By: #### L 400.0001 #### [facility] [address] [place], [address] FINGERSTICK GLU 171 mg/dL High 74-106 [facility] Comment on above: Result Comment: FAY GEMENT OF PATIENT CARE PER NURSING PROTOCOL Performed By: #### L 400.0001 #### [facility] [address] [place], [address] FINGERSTICK GLU 211 mg/dL High 74-106 [facility] Comment on above: Result Comment: FAY GEMENT OF PATIENT CARE PER NURSING PROTOCOL Performed By: #### L 501.080 #### [facility] [address] [place], [address] FINGERSTICK GLU 179 mg/dL High 74-106 [facility] Comment on above: Result Comment: FAY GEMENT OF PATIENT CARE PER NURSING PROTOCOL Performed By: #### L 501.080 #### [facility] [address] [place], [address] FINGERSTICK GLU 185 mg/dL High 74-106 [facility] Comment on above: Result Comment: FAY GEMENT OF PATIENT CARE PER NURSING PROTOCOL Performed By: #### L 500.2500 #### [facility] [address] [place], [address] FINGERSTICK GLU 217 mg/dL High 74-106 [facility] Comment on above: Result Comment: FAY GEMENT OF PATIENT CARE PER NURSING PROTOCOL Performed By: #### L 501.080 #### [facility] [address] [place], [address] FINGERSTICK GLU 275 mg/dL High -106 [facility] Comment on above: Result Comment: FAY GEMENT OF PATIENT CARE PER NURSING PROTOCOL Performed By: #### L 501.6901, L700.6800, L500.4050, L501.2450, L100.0100 #### [facility] [address] [place], [address] FINGERSTICK GLU 190 mg/dL High [facility]106 [facility] Comment on above: Result Comment: FAY GEMENT OF PATIENT CARE PER NURSING PROTOCOL Performed By: #### L 501.6901, L700.6800, L500.4050, L501.2450, L100.0100 #### [facility] [address] [place], [address] FINGERSTICK GLU 231 mg/dL High [address] [place] [address] Comment on above: Result Comment: FAY GEMENT OF PATIENT CARE PER NURSING PROTOCOL Performed By: #### L 501.6901, L700.6800, L500.4050, L501.2450, L100.0100 #### [facility] [address] [place], [address] FINGERSTICK GLU 320 mg/dL High 74-106 [facility] Comment on above: Result Comment: FAY GEMENT OF PATIENT CARE PER NURSING PROTOCOL Performed By: #### L 501.6901, L700.6800, L500.4050, L501.2450, L100.0100 #### [facility] [address] [place], [address] Blood Gases by [facility] 10-24-2 024 Base excess Calc (Bld) [Moles/Vol] -14 mmol/L Low -2 to +2 [facility] Comment on above: Performed By: #### L 400.0001 #### [facility] [address] [place], [address] Blood Gas Type ART Normal [facility] Comment on above: Performed By: #### L 400.0001 #### [facility] [address] [place], [address] CO2 [Moles/Vol] 13 mmol/L Normal [facility] Comment on above: Performed By: #### L 400.0001 #### [facility] [address] [place], [address] FI02 21.0 Normal [facility] Comment on above: Performed By: #### L 400.0001 #### [facility] [address] [place], [address] HCO3 (Bld) [Moles/Vol] 12.3 mmol/L Low 22-26 [facility] Comment on above: Performed By: #### L 400.0001 #### [facility] [address] [place], [address] Mode Not entered [facility] Comment on above: Performed By: #### L 400.0001 #### [facility] [address] [place], [address] O2 Delivery Dev Not entered [facility] Comment on above: Performed By: #### L 400.0001 #### [facility] [address] [place], [address] pCO2 25.4 mmHg Low 35-45 [facility] Comment on above: Performed By: #### L 400.0001 #### [facility] [address] [place], [address] pH (Bld) 7.29 [pH] Low 7.35-7.45 [facility] Comment on above: Performed By: #### L 400.0001 #### [facility] [address] [place], [address] PO2 102 mmHG High 75-100 [facility] Comment on above: Performed By: #### L 400.0001 #### [facility] [address] [place], [address] SITE L Brach Normal [facility] Comment on above: Performed By: #### L 400.0001 #### [facility] [address] [place], [address] SO2 97 Normal 95-99 [facility] Comment on above: Performed By: #### L 400.0001 #### [facility] [address] [place], [address] CBC W/Diff, Automatedon 10-2 Absolute Lymph 1.03 X10 3/uL Normal 0.83-4.51 [facility] Comment on above: Performed By: #### L 501.6901, L700.6800, L500.4050, L501.2450, L100.0100 #### [facility] [address] [place], [address] Absolute Neut 12.9 X10 3/uL High 2.0-7.7 [facility] Comment on above: Performed By: #### L 501.6901, L700.6800, L500.4050, L501.2450, L100.0100 #### [facility] [address] [place], [address] Basophils/100 WBC (Bld) 0.5 % Normal 0-1 [facility] Comment on above: Performed By: #### L 501.6901, L700.6800, L500.4050, L501.2450, L100.0100 #### [facility] [address] [place], [address] Eosinophils/100 WBC (Bld) 0.1 % Normal 0-5 [facility] Comment on above: Performed By: #### L 501.6901, L700.6800, L500.4050, L501.2450, L100.0100 #### [facility] [address] [place], [address] Erythrocyte distribution width (RBC) [Ratio] 13.4 % Normal 11.6-14.6 [facility] Comment on above: Performed By: #### L 501.6901, L700.6800, L500.4050, L501.2450, L100.0100 #### [facility] [address] [place], [address] Hematocrit (Bld) [Volume fraction] 44.6 % Normal 37-47 [facility] Comment on above: Performed By: #### L 501.6901, L700.6800, L500.4050, L501.2450, L100.0100 #### [facility] [address] [place], [address] Hemoglobin (Bld) [Mass/Vol] 14.3 g/dL Normal 12.0-15.0 [facility] Comment on above: Performed By: #### L 501.6901, L700.6800, L500.4050, L501.2450, L100.0100 #### [facility] [address] [place], [address] IG% 0.600 Normal 0.0-0.9 [facility] Comment on above: Result Comment: IG% - Immature Granulocytes (promyelocytes, myelocytes and metamyelocytes) > 1% indicates that a LEFT SHIFT is Present. Performed By: #### L 501.6901, L700.6800, L500.4050, L501.2450, L100.0100 #### [facility] [address] [place], [address] Lymphocytes/100 WBC (Bld) 7.1 % Low 19-41 [facility] Comment on above: Performed By: #### L 501.6901, L700.6800, L500.4050, L501.2450, L100.0100 #### [facility] [address] [place], [address] MCH (RBC) [Entitic mass] 28.3 pg Normal 27.0-32.0 [facility] Comment on above: Performed By: #### L 501.6901, L700.6800, L500.4050, L501.2450, L100.0100 #### [facility] [address] [place], [address] MCHC (RBC) [Mass/Vol] 32.1 g/dL Normal 32-36 [facility] Comment on above: Performed By: #### L 501.6901, L700.6800, L500.4050, L501.2450, L100.0100 #### [facility] [address] [place], [address] MCV (RBC) [Entitic vol] 88.1 fL Normal 81-99 [facility] Comment on above: Performed By: #### L 501.6901, L700.6800, L500.4050, L501.2450, L100.0100 #### [facility] [address] [place], [address] Monocytes/100 WBC (Bld) 2.4 % Normal 0-10 [facility] Comment on above: Performed By: #### L 501.6901, L700.6800, L500.4050, L501.2450, L100.0100 #### [facility] [address] [place], [address] Neutrophils/100 WBC (Bld) 89.3 % High 47-70 [facility] Comment on above: Performed By: #### L 501.6901, L700.6800, L500.4050, L501.2450, L100.0100 #### [facility] [address] [place], [address] Nucleated RBC (Bld) [#/Vol] 0 10*3/uL Normal 0-5 [facility] Comment on above: Performed By: #### L 501.6901, L700.6800, L500.4050, L501.2450, L100.0100 #### [facility] [address] [place], [address] Platelet mean volume (Bld) [Entitic vol] 9.1 fL Normal 6.2-12.0 [facility] Comment on above: Performed By: #### L 501.6901, L700.6800, L500.4050, L501.2450, L100.0100 #### [facility] [address] [place], [address] Platelets (Bld) [#/Vol] 388 10*3/uL Normal 150-450 [facility] Comment on above: Performed By: #### L 501.6901, L700.6800, L500.4050, L501.2450, L100.0100 #### [facility] [address] [place], [address] RBC (Bld) [#/Vol] 5.06 10*6/uL Normal 4.2-5.4 [facility] Comment on above: Performed By: #### L 501.6901, L700.6800, L500.4050, L501.2450, L100.0100 #### [facility] [address] [place], [address] RDW SD 43.1 fl Normal 35.1-43.9 [facility] Comment on above: Performed By: #### L 501.6901, L700.6800, L500.4050, L501.2450, L100.0100 #### [facility] [address] [place], [address] WBC (Bld) [#/Vol] 14.4 10*3/uL High 4.4-11.0 [facility] Comment on above: Performed By: #### L 501.6901, L700.6800, L500.4050, L501.2450, L100.0100 #### [facility] [address] [place], [address] Comprehensive Metabolic Prof ilon 05-13-2024 Albumin [Mass/Vol] 4.6 g/dL Normal 3.2-5.0 [facility] Comment on above: Performed By: #### L 501.6901, L700.6800, L500.4050, L501.2450, L100.0100 #### [facility] [address] [place], [address] Albumin/Globulin [Mass ratio] 1.2 {ratio} Normal 0.9-2.4 [facility] Comment on above: Performed By: #### L 501.6901, L700.6800, L500.4050, L501.2450, L100.0100 #### [facility] [address] [place], [address] ALK P 108 U/L Normal 45-117 [facility] Comment on above: Performed By: #### L 501.6901, L700.6800, L500.4050, L501.2450, L100.0100 #### [facility] [address] [place], [address] ALT [Catalytic activity/Vol] 22 U/L Normal 13-56 [facility] Comment on above: Performed By: #### L 501.6901, L700.6800, L500.4050, L501.2450, L100.0100 #### [facility] [address] [place], [address] AST [Catalytic activity/Vol] 14 U/L Low 15-37 [facility] Comment on above: Performed By: #### L 501.6901, L700.6800, L500.4050, L501.2450, L100.0100 #### [facility] [address] [place], [address] Bilirubin [Mass/Vol] 1.30 mg/dL High 0.20-1.00 [facility] Comment on above: Result Comment: For patients on eltrombopag therapy, use of [facility] TBIL is not recommended. Performed By: #### L 501.6901, L700.6800, L500.4050, L501.2450, L100.0100 #### [facility] [address] [place], [address] BUN/CRE 16.2 RATIO Normal 10-20 [facility] Comment on above: Performed By: #### L 501.6901, L700.6800, L500.4050, L501.2450, L100.0100 #### [facility] [address] [place], [address] CA,Total 9.7 mg/dL Normal 8.5-10.1 [facility] Comment on above: Performed By: #### L 501.6901, L700.6800, L500.4050, L501.2450, L100.0100 #### [facility] [address] [place], [address] Chloride [Moles/Vol] 104 mmol/L Normal 98-107 [facility] Comment on above: Performed By: #### L 501.6901, L700.6800, L500.4050, L501.2450, L100.0100 #### [facility] [address] [place], [address] CO2 [Moles/Vol] 13.0 mmol/L Low 21.0-32.0 [facility] Comment on above: Performed By: #### L 501.6901, L700.6800, L500.4050, L501.2450, L100.0100 #### [facility] [address] [place], [address] Creatinine [Mass/Vol] 0.98 mg/dL Normal 0.55-1.02 [facility] Comment on above: Result Comment: The validity of the calculated GFR GFRAA in patients over 70 years has not been determined. Clinical correlation is essential. Performed By: #### L 501.6901, L700.6800, L500.4050, L501.2450, L100.0100 #### [facility] [address] [place], [address] ECRCL 74.89 ml/min Normal [facility] Comment on above: Performed By: #### L 501.6901, L700.6800, L500.4050, L501.2450, L100.0100 #### [facility] [address] [place], [address] EST GFR - AA 88 mL/min Normal >60 [facility] Comment on above: Result Comment: Afri can Prydeinig GFR Calc Performed By: #### L 501.6901, L700.6800, L500.4050, L501.2450, L100.0100 #### [facility] [address] [place], [address] GAP 20 High 5-15 [facility] Comment on above: Performed By: #### L 501.6901, L700.6800, L500.4050, L501.2450, L100.0100 #### [facility] [address] [place], [address] GFR/1.73 sq M.predicted among non-blacks MDRD (S/P/Bld) [Vol rate/Area] 72 mL/min/{1.73_m2} Normal >60 [facility] Comment on above: Result Comment: Non- GFR Calc Performed By: #### L 501.6901, L700.6800, L500.4050, L501.2450, L100.0100 #### [facility] [address] [place], [address] Globulin (S) [Mass/Vol] 4.0 g/dL Normal 2.2-4.2 [facility] Comment on above: Performed By: #### L 501.6901, L700.6800, L500.4050, L501.2450, L100.0100 #### [facility] [address] [place], [address] Glucose [Mass/Vol] 441 mg/dL High 74-106 [facility] Comment on above: Result Comment: Gluc ose result greater than or equal to 200 mg/dL suggests DIABETES MELLITUS per A.D.A. criteria. Performed By: #### L 501.6901, L700.6800, L500.4050, L501.2450, L100.0100 #### [facility] [address] [place], [address] Potassium [Moles/Vol] 4.1 mmol/L Normal 3.5-5.1 [facility] Comment on above: Performed By: #### L 501.6901, L700.6800, L500.4050, L501.2450, L100.0100 #### [facility] [address] [place], [address] Sodium [Moles/Vol] 137 mmol/L Normal 136-145 [facility] Comment on above: Performed By: #### L 501.6901, L700.6800, L500.4050, L501.2450, L100.0100 #### [facility] [address] [place], [address] T PROT 8.6 g/dL High 6.4-8.2 [facility] Comment on above: Performed By: #### L 501.6901, L700.6800, L500.4050, L501.2450, L100.0100 #### [facility] [address] [place], [address] Urea nitrogen [Mass/Vol] 16 mg/dL Normal 7-18 [facility] Comment on above: Performed By: #### L 501.6901, L700.6800, L500.4050, L501.2450, L100.0100 #### [facility] [address] [place], [address] Emergency Department Summary on 05-13-2024 Emergency Department Summary [facility] Medical Records Department [address] [place] [address] Emergency Department Summary 05/13/24 MR#: [id number] Acct: [id number] Name: KALIE DESIR Rep #: [id number] : 2000 24 From: Yony Simmons MD PCP: Minnie Hodge Status:ADM [place] Location: ICU [id number] HPI HPI - GI History of Present Illness Chief Complaint: Nausea/Vomiting Narrative Narrative: 24-year-old female past medical history of diabetes mellitus, on short acting and long-acting insulin presents again to the emergency department with nausea, vomiting, and diarrhea. She states that for 2 weeks her sugars have been high and she has been experiencing fever, nausea and vomiting especially and lower abdominal pain. She was seen in the emergency department at around noon yesterday, just over 12 hours ago. She had a workup and was given IV fluids, sent home on Reglan, and discharged. She also had a CT scan of her abdomen and pelvis. She states that after she got home, she took the medication, and her symptoms worsen. She is having nausea and vomiting with dry heaving, and started having diarrhea. [facility] Medical History (Updated 05/13/24 @ 03:[address] Jackeline de Jeff, DO) Insulin dependent type 1 diabetes mellitus Tachycardia Diabetic ketoacidosis Hx of type 1 diabetes mellitus Non-compliance DKA (diabetic ketoacidosis) Type 1 diabetes mellitus with hyperglycemia Hypokalemia Hypophosphatemia Cannabis hyperemesis syndrome concurrent with and due to cannabis abuse DKA, type [address] History of marijuana use Anxiety and depression Insomnia Numbness and tingling Insulin pump titration Presence of insulin pump History of hepatitis A Asthma Diabetes type 1, controlled Home Medications ???Medication ???Instructions ???Recorded ???Last Taken ???Type albuterol sulfate 90 mcg/actuation 2 puff inhalation Q4H PRN SHORTNES 08/25/18 03/02/23 History aerosol inhaler (Ventolin HFA) OF BREATH/WHEEZING Ketone Urine Test (acetone (urine) #50 ea 11/05/21 Unknown Rx test) fluticasone propionate 50 2 spray intranasal DAILY NASAL 11/21/22 02/12/23 History mcg/actuation nasal CONGESTION spray,suspension pen needle, diabetic 32 gauge x #120 ea 11/23/22 Unknown Rx (BD Ultra-Fine Opal Pen Needle) hydroxyzine pamoate 25 mg capsule 25 mg PO QHS ITCHING #30 caps 01/13/23 02/12/23 Rx (Vistaril) insulin pump cartridge,automated #1 ea 08/15/23 Unknown Rx dose,BT with controller subcutaneous (Omnipod 5 G6 Intro Kit (Gen 5) subcutaneous cartridge with controller) blood-glucose sensor (Dexcom G6 #9 ea 11/10/23 Unknown Rx Sensor device) blood-glucose transmitter (Dexcom #1 ea 11/10/23 Unknown Rx G6 Transmitter device) insulin pump cart,automated,BT #45 ea 11/10/23 Unknown Rx (Omnipod 5 G6 Pods (Gen 5) subcutaneous cartridge) insulin lispro 100 unit/mL 100 unit subcut DAILY #90 mL 12/30/23 Unknown Rx subcutaneous solution (Humalog U-100 Insulin) metoclopramide HCl 5 mg tablet 5 mg PO DAILY PRN nausea and 05/12/24 Unknown Rx (Reglan) vomiting 3 days #9 tabs Allergy/AdvReac Type Severity Reaction Status Date / Time bee venom protein (honey Allergy Severe Anaphylaxis Verified 05/12/24 12:11 bee) (bee stings) Sulfa (Sulfonamide Allergy Unknown Verified 05/12/24 12:11 Antibiotics) prednisone AdvReac Vomiting Verified 05/12/24 12:11 Family History Grandmother Diabetes Sister Asthma Brother Asthma Mother Heart disease Surgical History History of placement of ear tubes Social History household members: family Smoking Status: Never smoker second hand exposure: No alcohol intake: never substance use type: other details: Cannabis, last use 1 month prior, ingested. ROS ROS ED ROS Narrative Constitutional: No fever, no chills. HEENT: No sore throat. No neck pain. No loss of vision. No rhinorrhea. Cardiovascular: No chest pain. No palpitations. No pedal edema. Respiratory: No cough, no shortness of breath. Abdominal: No abdominal pain. Nausea, vomiting, diarrhea. Genitourinary: No dysuria. No hematuria. Musculoskeletal: No myalgias. No arthralgias. Neurologic: No headaches. No dizziness. No lightheadedness. Skin: No rash. No change in color. EXAM Physical Exam Narrative Exam Narrative: Afebrile. Vital signs noted. Regular rate and rhythm. Lungs clear to auscultation bilaterally. Abdomen soft nontender with normal active bowel sounds. She is dry heaving on examination as well and was able to sit up. Neurological examination is nonfocal and nonlateralizing. She was able to ambulate to the co (more content not included)... Normal [facility] H&P Exam - Hospitalist [facility] Medical Records Department [address] [place] [address] H P Exam - Hospitalist 05/13/24 0254 MR#: [id number] Acct: [id number] Name: KALIE DESIR Rep #: [id number] : 2000 24 From: Jackeline Rowe DO PCP: Minnie Hodge Status:ADM IN Location: ICU [id number] HPI - General General Date of Admission: 05/13/24 Date of Service: 05/13/24 Chief Complaint: Nausea, Vomiting and Hyperglycemia. NICO DESIR, is a 24 F with a past medical history of obesity; with BMI of 32.5 this admission, history of DM-1 since age 8 with insulin pump in-place; uncontrolled with hyperglycemia, history of DKA, history of cannabis abuse; with cannabis hyperemesis syndrome, history of asthma, history of hepatitis A, history of myringotomy tubes, depression with anxiety and recent ER evaluation here yesterday around noon for nausea and vomiting presumed to be primarily due to a viral syndrome with fever, lower abdominal pain and modestly elevated blood glucose in the 200 mg/dL range in spite of taking her insulin as prescribed with patient then volume resuscitated and treated with Reglan followed by discharge home after an unremarkable CT scan of the abdomen and pelvis with a negative urine test who re-presents to [facility] ER complaining of continued nausea and vomiting. Ms. Gonzalez reports her initial symptoms began 2 weeks prior to admission with intermittent fever along with progressively worsening nausea and bilious emesis. She came to the ER to be evaluated with transient improvement - but when she got home she claims she took the prescribed medications but her symptoms worsened with intractable nausea with frequent dry heaves followed by non-bloody diarrhea so she decided to come back in for further evaluation and treatment. She admits her symptoms are similar to her previous bouts of DKA. She denies associated chest pain, SOB, headache or diaphoresis. In the ER she was noted to have pH of 7.03 and an elevated blood glucose of 441 mg/dL with an anion gap of 20 and moderate serum ketones consistent with DKA along with Leukocytosis of 14.4K present on admission that was suspected to be reactive in nature triggered by recent viral gastroenteritis with intractable nausea and vomiting followed by non-bloody diarrhea and she was then admitted to the ICU for ongoing care for a stay that is expected to extend beyond 2 midnights. [facility] Medical History (Updated 05/13/24 @ 03:[address] Jackeline Rowe DO) Insulin dependent type 1 diabetes mellitus Tachycardia Diabetic ketoacidosis Hx of type 1 diabetes mellitus Non-compliance DKA (diabetic ketoacidosis) Type 1 diabetes mellitus with hyperglycemia Hypokalemia Hypophosphatemia Cannabis hyperemesis syndrome concurrent with and due to cannabis abuse DKA, type [address] History of marijuana use Anxiety and depression Insomnia Numbness and tingling Insulin pump titration Presence of insulin pump History of hepatitis A Asthma Diabetes type 1, controlled Home Medications ???Medication ???Instructions ???Recorded ???Last Taken ???Type albuterol sulfate 90 mcg/actuation 2 puff inhalation Q4H PRN SHORTNES 08/25/18 03/02/23 History aerosol inhaler (Ventolin HFA) OF BREATH/WHEEZING Ketone Urine Test (acetone (urine) #50 ea 11/05/21 Unknown Rx test) fluticasone propionate 50 2 spray intranasal DAILY NASAL 11/21/22 02/12/23 History mcg/actuation nasal CONGESTION spray,suspension pen needle, diabetic 32 gauge x #120 ea 11/23/22 Unknown Rx (BD Ultra-Fine Opal Pen Needle) hydroxyzine pamoate 25 mg capsule 25 mg PO QHS ITCHING #30 caps 01/13/23 02/12/23 Rx (Vistaril) insulin pump cartridge,automated #1 ea 08/15/23 Unknown Rx dose,BT with controller subcutaneous (Omnipod 5 G6 Intro Kit (Gen 5) subcutaneous cartridge with controller) blood-glucose sensor (Dexcom G6 #9 ea 11/10/23 Unknown Rx Sensor device) blood-glucose transmitter (Dexcom #1 ea 11/10/23 Unknown Rx G6 Transmitter device) insulin pump cart,automated,BT #45 ea 11/10/23 Unknown Rx (Omnipod 5 G6 Pods (Gen 5) subcutaneous cartridge) insulin lispro 100 unit/mL 100 unit subcut DAILY #90 mL 12/30/23 Unknown Rx subcutaneous solution (Humalog U-100 Insulin) metoclopramide HCl 5 mg tablet 5 mg PO DAILY PRN nausea and 05/12/24 Unknown Rx (Reglan) vomiting 3 days #9 tabs Allergy/AdvReac Type Severity Reaction Status Date / Time bee venom protein (honey Allergy Severe Anaphylaxis Verified 05/12/24 12:11 bee) (bee stings) Sulfa (Sulfonamide Allergy Unknown Verified 05/12/24 12:11 Antibiotics) prednisone AdvReac Vomiting Verified 05/12/24 12:11 Family History Grandmother Diab (more content not included)... Normal [facility] Hemoglobin A1con 05-13-2024 HbA1c (Bld) [Mass fraction] 11.0 % High 3.8-5.6 [facility] Comment on above: Result Comment: Norm al < 5.7 % Prediabetic 5.7 - 6.4 % Diabetic >or= 6.5 % Please note range changes. Performed By: #### L 400.0001 #### [facility] [address] [place], [address] Lipaseon 05-13-2024 Lipase [Catalytic activity/Vol] 12 U/L Low 13-75 [facility] Comment on above: Result Comment: Ilda nickerson note: LIPASE revised reference range effective 22. New Lipase methodology. Expected to produce lower values than the previous assay method. NEW Reference Range: 13 - 75 U/L Performed By: #### L 501.6901, L700.6800, L500.4050, L501.2450, L100.0100 #### [facility] [address] [place], [address] Magnesiumon 05-13-2024 Magnesium [Mass/Vol] 2.0 mg/dL Normal 1.6-2.6 [facility] Comment on above: Performed By: #### L 501.6901, L700.6800, L500.4050, L501.2450, L100.0100 #### [facility] [address] [place], [address] Thyroid Stim Hormone (TSH)on 05-13-2024 TSH 1.320 uIU/mL Normal 0.358-3.740 [facility] Comment on above: Order Comment: CRITI DONI VALUE CALLED TO SHALONDA TRUJILLO 11/27/24 Cristhian Macdonald. RESULTS READ BACK BY SAME. CLEAN CATCH Performed By: #### L 400.0001 #### [facility] [address] [place], [address] Urinalysis, Completeon 10-24 -2024 EPI,SQUAMOUS 0-5 SEEN Normal 5-10 [facility] Comment on above: Order Comment: COLLE CTOR TO SPECIFY Performed By: #### L 501.6901, L700.6800, L500.4050, L501.2450, L100.0100 #### [facility] [address] [place], [address] RBC 0-5 SEEN Normal 0-5 [facility] Comment on above: Order Comment: COLLE CTOR TO SPECIFY Performed By: #### L 501.6901, L700.6800, L500.4050, L501.2450, L100.0100 #### [facility] [address] [place], [address] BACTERIA 0 SEEN Normal None Seen [facility] Comment on above: Order Comment: LEXI CTOR TO SPECIFY Performed By: #### L 501.6901, L700.6800, L500.4050, L501.2450, L100.0100 #### [facility] [address] [place], [address] Mucus Ql (Urine sed) 0 SEEN Normal [facility] Comment on above: Order Comment: LEXI CTOR TO SPECIFY Performed By: #### L 501.6901, L700.6800, L500.4050, L501.2450, L100.0100 #### [facility] [address] [place], [address] WBC 0 SEEN Normal 0-5 [facility] Comment on above: Order Comment: COLLE CTOR TO SPECIFY Performed By: #### L 501.6901, L700.6800, L500.4050, L501.2450, L100.0100 #### [facility] [address] [place], [address] Urine Drug Screen (VISTA)on 05-13-2024 AMPHETAMINES Negative Normal <1000 ng/mL [facility] Comment on above: Performed By: #### L 400.0001 #### [facility] [address] [place], [address] BARBITIURATES Negative Normal < 200 ng/mL [facility] Comment on above: Performed By: #### L 400.0001 #### [facility] [address] [place], [address] BENZODIAZIPINE Negative Normal < 200 ng/mL [facility] Comment on above: Performed By: #### L 400.0001 #### [facility] [address] [place], [address] COCAINE Negative Normal < 300 ng/mL [facility] Comment on above: Performed By: #### L 400.0001 #### [facility] [address] [place], [address] ECSTACY Negative Normal < 500 ng/mL [facility] Comment on above: Performed By: #### L 400.0001 #### [facility] [address] [place], [address] METHADONE Negative Normal < 300 ng/mL [facility] Comment on above: Performed By: #### L 400.0001 #### [facility] [address] [place], [address] OPIATES Negative Normal < 300 ng/mL [facility] Comment on above: Performed By: #### L 400.0001 #### [facility] [address] [place], [address] PCP Negative Normal < 25 ng/mL [facility] Comment on above: Performed By: #### L 400.0001 #### [facility] [address] [place], [address] THC Positive Abnormal < 50 ng/mL [facility] Comment on above: Performed By: #### L 400.0001 #### [facility] [address] [place], [address] VISTA UDS PH 6 [facility] Comment on above: Performed By: #### L 400.0001 #### [facility] [address] [place], [address] Venous Blood Gason 4 Blood Gas Type LUIS [facility] Comment on above: Performed By: #### L 400.0001 #### [facility] [address] [place], [address] CO2 [Moles/Vol] 10 mmol/L Low 23-33 [facility] Comment on above: Performed By: #### L 400.0001 #### [facility] [address] [place], [address] HCO3 (Bld) [Moles/Vol] 9 mmol/L Low 22-26 [facility] Comment on above: Performed By: #### L 400.0001 #### [facility] [address] [place], [address] O2 Delivery Dev Room Air [facility] Comment on above: Performed By: #### L 400.0001 #### [facility] [address] [place], [address] Read Back By Yes [facility] Comment on above: Performed By: #### L 400.0001 #### [facility] [address] [place], [address] Results To Reodica [facility] Comment on above: Performed By: #### L 400.0001 #### [facility] [address] [place], [address] SITE Not entered [facility] Comment on above: Performed By: #### L 400.0001 #### [facility] [address] [place], [address] Time Given 02:41:34 [facility] Comment on above: Performed By: #### L 400.0001 #### [facility] [address] [place], [address] VBG BE -22 mmol/L Low -1.0-3.5 [facility] Comment on above: Performed By: #### L 400.0001 #### [facility] [address] [place], [address] VBG pCO2 32.0 mmHg Low 41-51 [facility] Comment on above: Performed By: #### L 400.0001 #### [facility] [address] [place], [address] VBG pH 7.05 Invalid Interpretation Code 7.32-7.42 [facility] Comment on above: Performed By: #### L 400.0001 #### [facility] [address] [place], [address] VBG PO2 61 mmHg High 25-40 [facility] Comment on above: Performed By: #### L 400.0001 #### [facility] [address] [place], [address] VBG SO2 80 High 50-70 [facility] Comment on above: Performed By: #### L 400.0001 #### [facility] [address] [place], [address] Abdomen/Pelvis W IV Cont ONL Yon 05-12-2024 Abdomen/Pelvis W IV Cont ONLY [facility] [address] [place] [address] Abdomen/Pelvis W IV Cont ONLY MR#: [id number] Acct: [id number] Name: KALIE DESIR Rep #: [id number] : 2000 F 24 From: Akil vegas MD PCP: Minnie Hodge Status: REG ER Study: Abdomen/Pelvis W IV Cont ONLY Date of Exam: Exam# [id number] Ordering Dr: Rony Delgadillo DO [id number] STUDY: CT ABDOMEN AND PELVIS WITH CONTRAST REASON FOR EXAM: Female, 24 years old. abdominal pain. Two-week history of nausea and vomiting. RADIATION DOSAGE (If Supplied By Facility): CTDIvol = ( 13.70 ) mGy, DLP = ( 723.70 ) mGycm TECHNIQUE: Transaxial images were obtained from the dome of the diaphragm to the symphysis pubis without oral contrast. IV 100mL Isovue-300 was administered. Sagittal and coronal images were reconstructed. Individualized dose optimization techniques were used for this CT. COMPARISON: Comparison is made with prior study of November 26, 2023. FINDINGS: The visualized lung bases are unremarkable. The visualized portions of the heart are within normal limits. Normal liver. Normal gallbladder and extrahepatic biliary system. Normal spleen. Normal pancreas. Normal bilateral adrenal glands. Normal right kidney. Normal left kidney. Normal visualized stomach. Normal small intestine. Moderate amount of fecal material is seen in the colon. The appendix is visualized and appears normal. Normal abdominal aorta. Normal inferior vena cava. There is a small retroperitoneal lymphadenopathy with enlarged nodes no greater than 10mm in the short axis diameter. Normal urinary bladder. Normal abdominal wall. Normal osseous structures. CT/Abdomen/Pelvis W IV Cont ONLY IMPRESSION: Moderate amount of fecal material is seen in the colon. Electronically Signed: Akil Deutsch MD at 14:28 EDT , CC: Minnie Hodge; Dr. Rony Delgadillo DO Timekeeper: Signed Normal [facility] Acetone Serumon 05-12-2024 ACETONE SERUM MODERATE Abnormal NEG [facility] Comment on above: Performed By: #### L 500.2500 #### [facility] [address] [place], [address] CBC W/Diff, Automatedon 10-2 Absolute Lymph 0.98 X10 3/uL Normal 0.83-4.51 [facility] Comment on above: Performed By: #### L 501.080 #### [facility] [address] [place], [address] Absolute Neut 8.0 X10 3/uL High 2.0-7.7 [facility] Comment on above: Performed By: #### L 501.080 #### [facility] [address] [place], [address] Basophils/100 WBC (Bld) 0.5 % Normal 0-1 [facility] Comment on above: Performed By: #### L 501.080 #### [facility] [place], [address] Eosinophils/100 WBC (Bld) 0.6 % Normal 0-5 [facility] Comment on above: Performed By: #### L 501.080 #### [facility] [address] [place], [address] Erythrocyte distribution width (RBC) [Ratio] 13.2 % Normal 11.6-14.6 [facility] Comment on above: Performed By: #### L 501.080 #### [facility] [address] [place], [address] Hematocrit (Bld) [Volume fraction] 43.9 % Normal 37-47 [facility] Comment on above: Performed By: #### L 501.080 #### [facility] [address] [place], [address] Hemoglobin (Bld) [Mass/Vol] 14.6 g/dL Normal 12.0-15.0 [facility] Comment on above: Performed By: #### L 501.080 #### [facility] [address] [place], [address] IG% 0.200 Normal 0.0-0.9 [facility] Comment on above: Result Comment: IG% - Immature Granulocytes (promyelocytes, myelocytes and metamyelocytes) > 1% indicates that a LEFT SHIFT is Present. Performed By: #### L 501.080 #### [facility] [address] [place], [address] Lymphocytes/100 WBC (Bld) 10.3 % Low 19-41 [facility] Comment on above: Performed By: #### L 501.080 #### [facility] [address] [place], [address] MCH (RBC) [Entitic mass] 27.8 pg Normal 27.0-32.0 [facility] Comment on above: Performed By: #### L 501.080 #### [facility] [address] [place], [address] MCHC (RBC) [Mass/Vol] 33.3 g/dL Normal 32-36 [facility] Comment on above: Performed By: #### L 501.080 #### [facility] [address] [place], [address] MCV (RBC) [Entitic vol] 83.6 fL Normal 81-99 [facility] Comment on above: Performed By: #### L 501.080 #### [facility] [address] [place], [address] Monocytes/100 WBC (Bld) 3.6 % Normal 0-10 [facility] Comment on above: Performed By: #### L 501.080 #### [facility] [address] [place], [address] Neutrophils/100 WBC (Bld) 84.8 % High 47-70 [facility] Comment on above: Performed By: #### L 501.080 #### [facility] [address] [place], [address] Nucleated RBC (Bld) [#/Vol] 0 10*3/uL Normal 0-5 [facility] Comment on above: Performed By: #### L 501.080 #### [facility] [address] [place], [address] Platelet mean volume (Bld) [Entitic vol] 9.0 fL Normal 6.2-12.0 [facility] Comment on above: Performed By: #### L 501.080 #### [facility] [address] [place], [address] Platelets (Bld) [#/Vol] 337 10*3/uL Normal 150-450 [facility] Comment on above: Performed By: #### L 501.080 #### [facility] [address] [place], [address] RBC (Bld) [#/Vol] 5.25 10*6/uL Normal 4.2-5.4 [facility] Comment on above: Performed By: #### L 501.080 #### [facility] [address] [place], [address] RDW SD 40.5 fl Normal 35.1-43.9 [facility] Comment on above: Performed By: #### L 501.080 #### [facility] [address] [place], [address] WBC (Bld) [#/Vol] 9.5 10*3/uL Normal 4.4-11.0 [facility] Comment on above: Performed By: #### L 501.080 #### [facility] [address] [place], [address] Comprehensive Metabolic Prof ilon 05-12-2024 Albumin [Mass/Vol] 3.9 g/dL Normal 3.2-5.0 [facility] Comment on above: Performed By: #### L 501.080 #### [facility] [address] [place], [address] Albumin/Globulin [Mass ratio] 1.0 {ratio} Normal 0.9-2.4 [facility] Comment on above: Performed By: #### L 501.080 #### [facility] [address] [place], [address] ALK P 97 U/L Normal 45-117 [facility] Comment on above: Performed By: #### L 501.080 #### [facility] [address] [place], [address] ALT [Catalytic activity/Vol] 19 U/L Normal 13-56 [facility] Comment on above: Performed By: #### L 501.080 #### [facility] [address] [place], [address] AST [Catalytic activity/Vol] 16 U/L Normal 15-37 [facility] Comment on above: Performed By: #### L 501.080 #### [facility] [address] [place], [address] Bilirubin [Mass/Vol] 1.00 mg/dL Normal 0.20-1.00 [facility] Comment on above: Result Comment: For patients on eltrombopag therapy, use of [facility] TBIL is not recommended. Performed By: #### L 501.080 #### [facility] [address] [place], [address] BUN/CRE 23.6 RATIO High 10-20 [facility] Comment on above: Performed By: #### L 501.080 #### [facility] [address] [place], [address] CA,Total 9.4 mg/dL Normal 8.5-10.1 [facility] Comment on above: Performed By: #### L 501.080 #### [facility] [address] [place], [address] Chloride [Moles/Vol] 108 mmol/L High 98-107 [facility] Comment on above: Performed By: #### L 501.080 #### [facility] [address] [place], [address] CO2 [Moles/Vol] 21.0 mmol/L Normal 21.0-32.0 [facility] Comment on above: Performed By: #### L 501.080 #### [facility] [address] [place], [address] Creatinine [Mass/Vol] 0.76 mg/dL Normal 0.55-1.02 [facility] Comment on above: Result Comment: The validity of the calculated GFR GFRAA in patients over 70 years has not been determined. Clinical correlation is essential. Performed By: #### L 501.080 #### [facility] [address] [place], [address] ECRCL 93.87 ml/min Normal [facility] Comment on above: Performed By: #### L 501.080 #### [facility] [address] [place], [address] EST GFR - AA 118 mL/min Normal >60 [facility] Comment on above: Result Comment: Afri can Prydeinig GFR Calc Performed By: #### L 501.080 #### [facility] [address] [place], [address] GAP 9 Normal 5-15 [facility] Comment on above: Performed By: #### L 501.080 #### [facility] [address] [place], [address] GFR/1.73 sq M.predicted among non-blacks MDRD (S/P/Bld) [Vol rate/Area] 97 mL/min/{1.73_m2} Normal >60 [facility] Comment on above: Result Comment: Non- GFR Calc Performed By: #### L 501.080 #### [facility] [address] [place], [address] Globulin (S) [Mass/Vol] 3.8 g/dL Normal 2.2-4.2 [facility] Comment on above: Performed By: #### L 501.080 #### [facility] [address] [place], [address] Glucose [Mass/Vol] 213 mg/dL High 74-106 [facility] Comment on above: Result Comment: Gluc ose result greater than or equal to 200 mg/dL suggests DIABETES MELLITUS per A.D.A. criteria. Performed By: #### L 501.080 #### [facility] [address] [place], [address] Potassium [Moles/Vol] 3.7 mmol/L Normal 3.5-5.1 [facility] Comment on above: Performed By: #### L 501.080 #### [facility] [address] [place], [address] Sodium [Moles/Vol] 138 mmol/L Normal 136-145 [facility] Comment on above: Performed By: #### L 501.080 #### [facility] [address] [place], [address] T PROT 7.7 g/dL Normal 6.4-8.2 [facility] Comment on above: Performed By: #### L 501.080 #### [facility] [address] [place], [address] Urea nitrogen [Mass/Vol] 18 mg/dL Normal 7-18 [facility] Comment on above: Performed By: #### L 501.080 #### [facility] [address] [place], [address] Emergency Department Summary on 05-12-2024 Emergency Department Summary [facility] Medical Records Department [address] [place] [address] Emergency Department Summary 05/12/24 MR#: [id number] Acct: [id number] Name: KALIE DESIR Rep #: [id number] : 2000 24 From: Rony Delgadillo DO PCP: Minnie Hodge Status:DEP ER Location: ED HPI History of Present Illness Chief Complaint: Nausea/Vomiting/Diarr hea Narrative Narrative: Chief complaint and HPI: Nausea and vomiting. 24-year-old female who is a type I diabetic presents for evaluation of nausea and vomiting x 2 weeks. Patient states she was seen at urgent care and diagnosed with a viral illness. She states the nausea and vomiting has continued. She endorses some mild lower abdominal pain. She states she did have a fever 4 days ago of 103 ???F. No fever since. Patient states her sugars have been high in the 200s. She has been appropriately distributing insulin. She has a Nexplanon in her arm and therefore states she does not think she is . She has not taken a test. She is sexually active. She denies any pelvic complain, vaginal bleeding, vaginal discharge. She denies any URI type symptoms, cough, chest pain, dysuria. Review of systems: See HPI Medications: As listed on the chart Allergies: As listed on the chart PFSH: Per chart Vital signs: As listed on the chart. Reviewed. Physical exam: Gen: A O x3, NAD Head: Normocephalic, atraumatic Eyes: No sclera icterus, conjunctiva clear ENT: Moist mucous membranes Neck: Trachea midline, No JVD CV: RRR, no murmurs, no peripheral edema Resp: Lungs CTA BL, no w/r/c GI: Abd soft, non-distended, minimally tender in the bilateral lower quadrant, no r/r/g Musc: Full ROM, no deformity Skin: Warm, dry Neuro: Alert, oriented, grossly intact, sensation intact Psych: Cooperative, appropriate mood and affect [facility] Medical History Anxiety and depression Asthma Cannabis hyperemesis syndrome concurrent with and due to cannabis abuse Diabetes type 1, controlled Diabetic ketoacidosis DKA, type 1 History of marijuana use Hypokalemia Hypophosphatemia Implanon in place Insulin pump titration Presence of insulin pump Tachycardia Home Medications ???Medication ???Instructions ???Recorded ???Last Taken ???Type albuterol sulfate 90 mcg/actuation 2 puff inhalation Q4H PRN SHORTNES 08/25/18 03/02/23 History aerosol inhaler (Ventolin HFA) OF BREATH/WHEEZING Ketone Urine Test (acetone (urine) #50 ea 11/05/21 Unknown Rx test) fluticasone propionate 50 2 spray intranasal DAILY NASAL 11/21/22 02/12/23 History mcg/actuation nasal CONGESTION spray,suspension pen needle, diabetic 32 gauge x #120 ea 11/23/22 Unknown Rx (BD Ultra-Fine Opal Pen Needle) hydroxyzine pamoate 25 mg capsule 25 mg PO QHS ITCHING #30 caps 01/13/23 02/12/23 Rx (Vistaril) insulin pump cartridge,automated #1 ea 08/15/23 Unknown Rx dose,BT with controller subcutaneous (Omnipod 5 G6 Intro Kit (Gen 5) subcutaneous cartridge with controller) blood-glucose sensor (Dexcom G6 #9 ea 11/10/23 Unknown Rx Sensor device) blood-glucose transmitter (Dexcom #1 ea 11/10/23 Unknown Rx G6 Transmitter device) insulin pump cart,automated,BT #45 ea 11/10/23 Unknown Rx (Omnipod 5 G6 Pods (Gen 5) subcutaneous cartridge) levofloxacin 750 mg tablet 750 mg PO DAILY #4 tabs 11/28/23 Unknown Rx metronidazole 500 mg tablet 500 mg PO Q8H #12 tabs 11/28/23 Unknown Rx insulin lispro 100 unit/mL 100 unit subcut DAILY #90 mL 12/30/23 Unknown Rx subcutaneous solution (Humalog U-100 Insulin) metoclopramide HCl 5 mg tablet 5 mg PO DAILY PRN nausea and 05/12/24 Unknown Rx (Reglan) vomiting 3 days #9 tabs Allergy/AdvReac Type Severity Reaction Status Date / Time bee venom protein (honey Allergy Severe Anaphylaxis Verified 05/12/24 12:11 bee) (bee stings) Sulfa (Sulfonamide Allergy Unknown Verified 05/12/24 12:11 Antibiotics) prednisone AdvReac Vomiting Verified 05/12/24 12:11 Family History Grandmother Diabetes Sister Asthma Brother Asthma Mother Heart disease Surgical History History of placement of ear tubes Social History household members: family Smoking Status: Never smoker second hand exposure: No alcohol intake: never substance use type: other details: Cannabis, last use 1 month prior, ingested. EXAM Physical Exam Const Vital Signs: 05/12/24 12:12 05/12/24 14:21 05/12/24 15:16 Temperature 97.2 F L 98 F Temperature Source Temporal Pulse Rate 145 H 99 78 Respiratory Rate 18 20 H 16 Blood (more content not included)... Normal [facility] Lipaseon 05-12-2024 Lipase [Catalytic activity/Vol] 16 U/L Normal 13-75 [facility] Comment on above: Result Comment: Ilda nickerson note: LIPASE revised reference range effective 22. New Lipase methodology. Expected to produce lower values than the previous assay method. NEW Reference Range: 13 - 75 U/L Performed By: #### L 501.080 #### [facility] [address] [place], [address] M100.678on 05-12-2024 M100.678 Pending SARS-CoV-2 (COVID 19) Negative INFLUENZA A Negative INFLUENZA B Negative RSV PCR Negative Normal [facility] Comment on above: Performed By: #### L 501.080 #### [facility] [address] [place], [address] ,Urineon 05-12-2024 Beta HCG ( test) Ql (U) Negative Normal [facility] Comment on above: Order Comment: CRITI DONI VALUE CALLED TO Tony RIVAS05/12/24 1349 Sharmaine H Nathan.RESULTS READ BACK BY @[employer].CLEAN CATCH Result Comment: Very dilute urine specimens, as indicated by a low specific gravity, may not contain medical field representative levels of hCG. If is still suspected, a first morning urine specimen should be collected 48 hours later and tested. Performed By: #### L 501.6901, L700.6800, L500.4050, L501.2450, L100.0100 #### [facility] [address] [place], [address] Urinalysis, Completeon 05-12 CAST,HYALINE 5-10 SEEN Normal 0-5 [facility] Comment on above: Order Comment: CRITI DONI VALUE CALLED TO A [employer]05/12/24 1349 [employer] Nathan.RESULTS READ BACK BY @[employer].CLEAN CATCH Performed By: #### L 501.6901, L700.6800, L500.4050, L501.2450, L100.0100 #### [facility] [address] [place], [place], [id number] BACTERIA RARE Normal None Seen [facility] Comment on above: Order Comment: CRITI DONI VALUE CALLED TO A [employer]05/12/24 134[employer].RESULTS READ BACK BY @[employer].CLEAN CATCH Performed By: #### L 501.6901, L700.6800, L500.4050, L501.2450, L100.0100 #### [facility] [address] [place], [place], [id number] EPI,SQUAMOUS 5-10 SEEN Normal 5-10 [facility] Comment on above: Order Comment: CRITI DONI VALUE CALLED TO A [employer]05/12/24 1349 Sharmaine H Nathan.RESULTS READ BACK BY @[employer].CLEAN CATCH Performed By: #### L 501.6901, L700.6800, L500.4050, L501.2450, L100.0100 #### [facility] [address] [place], [address] Mucus Ql (Urine sed) 1+ /hpf Normal [facility] Comment on above: Order Comment: CRITI DONI VALUE CALLED TO A [facility]05/12/24 1349 Sharmaine Barth Nathan.RESULTS READ BACK BY @[employer].CLEAN CATCH Performed By: #### L 501.6901, L700.6800, L500.4050, L501.2450, L100.0100 #### [facility] [address] [place], [place], [address] RBC 0-5 SEEN Normal 0-5 [facility] Comment on above: Order Comment: CRITI DONI VALUE CALLED TO A [facility]05/12/24 1349 Sharmaine Lightxler.RESULTS READ BACK BY @[employer].CLEAN CATCH Performed By: #### L 501.6901, L700.6800, L500.4050, L501.2450, L100.0100 #### [facility] [address] [place], [place], [address] WBC 0-5 SEEN Normal 0-5 [facility] Comment on above: Order Comment: CRITI DONI VALUE CALLED TO A [facility]05/12/24 1349 Sharmaine Lightxler.RESULTS READ BACK BY @[employer].CLEAN CATCH Performed By: #### L 501.6901, L700.6800, L500.4050, L501.2450, L100.0100 #### [facility] [address] [place], [place], [address] CNOVon 05-07-2024 CNOV Office Visit ([facility] ) KALIE DESIR ([id number]) 2000 F Date Time Provider Department 05/07/24 3:00 PM ARJUN KIM [facility] During your visit today, we recorded the following information about you: Temperature Pulse Respiration Blood pressure 99 degrees 89/minute 16/minute 118/68 Weight 68.7 kg Arjun Kim MD 05/07/2024 3:31 PM Signed Patient presents with: Diarrhea: With vomiting AND intermittent HILARIO with low grade fever x 2 days HPI: Feeling sick starting 2 days ago. She has been exposed to sick contacts. Positive symptoms: Headache, Nausea, Vomiting, Diarrhea, Fever (103), Body Aches, abdominal cramping Negative symptoms: Cough, Sore throat, Nasal Congestion, Rhinorrhea, blood in emesis/stool, OTC: aleve (for toothache), sugar free electrolyte fluids Glucose has been running 250-300. MEDICATIONS: Current Outpatient Medications Medication Sig insulin glargine (BASAGLAR KWIKPEN U-100 INSULIN) 100 unit/mL (3 mL) Inject 20 units daily Insulin Rincon, Disposable, (PEN NEEDLE) 32 gauge x 5/32 Uses up to 5 daily with insulin injection. Give with each insulin administration. insulin aspart U-100 (NOVOLOG FLEXPEN U-100 INSULIN) 100 unit/mL (3 mL) Inject subcutaneously. Inject 15 units with meals and sliding scale as needed TDD 60 units OMNIPOD 5 G6 PODS, GEN 5, crtg CHANGE EVERY 48 HOURS etonogestrel (NEXPLANON) subdermal implant 68 mg 1 Each by SUBDERMAL route as directed. hydrOXYzine pamoate (VISTARIL) 25 mg capsule daily at bedtime. potassium chloride ER (KLOR-CON) 20 mEq tablet Take 20 mEq by mouth as needed. DEXCOM G6 SENSOR cooper as directed. DEXCOM G6 TRANSMITTER cooper as directed. fluticasone (FLONASE) 50 mcg/actuation nasal spray Use 2 Sprays in each nostril once daily. Rinse mouth after use. albuterol HFA (VENTOLIN HFA) 90 mcg/actuation inhaler Inhale 2 Puffs as instructed every 4 hours as needed. etonogestrel (NEXPLANON) subdermal implant 68 mg ONCE Alcohol Swabs (ALCOHOL PREP PADS) padm Apply 1 application to affected area every 4 hours as needed (blood glucose check). Inhalational Spacing Device (AEROCHAMBER MASK LARGE) spcr 1 Device as needed. No current facility-administered medications for this visit. ALLERGIES: ALLERGIES Allergen Reactions Bee Venom Protein (* Anaphylaxis Melatonin Diarrhea Penicillins Rash Prednisone Vomiting Sulfatrim Ds Vomiting VITALS: BP 118/68 Pulse 89 Temp 37.2 ?C (99 ?F) (Left Tympanic) Resp 16 Wt 68.7 kg (151 lb 7.3 oz) LMP 02/22/2024 (Approximate) SpO2 98% BMI 30.95 kg/m? PHYSICAL EXAM: GEN: mildly ill appearing, pleasant, alert HEENT: PERRL, EOMI, conjunctiva clear Nose: patent Throat: moist mucous membranes, no erythema, no exudate Neck: supple, no thyromegaly, no lymphadenopathy HEART: regular rate and rhythm, no murmurs LUNGS: clear to auscultation, no wheezes or crackles, no increased WOB ABD: Soft, distended, general discomfort, no masses ASSESSMENT/PLAN: 1. Gastroenteritis - ICD9: 558.9, ICD10: K52.9 Hydration with fluids encouraged. She feels she is getting adequate liquid intake and is actually urinating frequently. Resume normal solid intake as tolerated. Follow up in the ER with signs of dehydration, increasing abdominal pain, persistent high fever, elevated glucose, or blood in vomit or stool. - ONDANSETRON 4 MG DISINTEGRATING TABLET Arjun Kim MD Allergies As of Date: 05/07/2024 Noted Allergy Reaction BEE VENOM PROTEIN (HONEY BEE) 07/23/2022 10 - Anaphylaxis MELATONIN 06/07/2021 6 - Diarrhea PENICILLINS 12/31/2011 2 - Rash PREDNISONE 05/12/2019 11 - Vomiting SULFATRIM DS 12/31/2011 11 - Vomiting Date Reviewed: 05/07/2024 Reviewed by: Rose Díaz MA - Fully Assessed Reason for Visit: Diarrhea [35] Cmt: With vomiting AND intermittent HILARIO with low grade fever x 2 days Primary Visit Diagnosis:Gastroenter itis [K52.9] Order(s):ondansetron orally disintegrating (ZOFRAN ODT) 4 mg disintegrating tabletTake 1 tablet by mouth every 6 hours as needed for nausea/vomiting for up to 7 days.Disp: 12 tabletRfl: 0 Prescriptions as of 05/07/2024 - ondansetron orally disintegrating (ZOFRAN ODT) 4 mg disintegrating tablet Take 1 tablet by mouth every 6 hours as needed for nausea/vomiting for up to 7 days. - insulin glargine (BASAGLAR KWIKPEN U-100 INSULIN) 100 unit/mL (3 mL) Inject 20 units daily - Insulin Rincon, Disposable, (PEN NEEDLE) 32 gauge x 5/32 Uses up to 5 daily with insulin injection. Give with each insulin administration. - insulin aspart U-100 (NOVOLOG FLEXPEN U-100 INSULIN) 100 unit/mL (3 mL) Inject subcutaneously. Inject 15 units with meals and sliding scale as needed TDD 60 units - OMNIPOD 5 G6 PODS, GEN 5, crtg CHANGE EVERY 48 HOURS - etonogestrel (NEXPLANON) subdermal implant 68 mg 1 Each by SUBDERMAL route as directed. (more content not included)... [facility] KALIE DESIR ([id number]) 2000 F Date Time Provider Department 04/14/24 1:00 PM JACKELINE SHUKLA During your visit today, we recorded the following information about you: Jackeline Shukla RN 04/14/2024 3:28 PM Signed DIABETES CARE AND EDUCATION VISIT Location: [place] Type of visit: In person individual PATIENT'S MAIN CONCERN TODAY: I'm not sure Support person present for education today: parent Cognitive ability: Alert and oriented Motivation to learn: Interested Learning barriers identified by educator: none Method of instruction: written, verbal, and demonstration DIABETES FINDINGS: out of Omnipod 5 pods - using back up insulins instead as she waits for it to be filled. License suspended at this time and she is between different jobs, so currently does not have any insurance. Monitoring: Dexcom G6 Medications: Basaglar - 18 units at bedtime, Novolog - 15 with meals HANDOUTS: Healthy You: Survival Skills and Healthy You: Planning Healthy Meals LEARNING RESPONSE: Taking medications: Demonstrated understanding/compete ncy today or at previous visit POSSIBLE FUTURE TOPICS: 1. DIABETES CARE AND EDUCATION PLAN: Education completed and annual diabetes education follow-up visit recommended Time Spent (Minutes): 30 This visit note will be communicated to the healthcare provider via access to shared medical record. SIGNATURE: Jackeline Shukla RN PATIENT NAME: Kalie Desir DATE: April 14, 2024 TIME: 12:28 PM Allergies As of Date: 04/14/2024 Noted Allergy Reaction MELATONIN 06/07/2021 6 - Diarrhea PENICILLINS 12/31/2011 2 - Rash SULFATRIM DS 12/31/2011 11 - Vomiting Date Reviewed: 03/25/2024 Reviewed by: Shira Petit MA - Fully Assessed Primary Visit Diagnosis:Type 1 diabetes mellitus without complication (HCC) [E10.9] Prescriptions as of 04/14/2024 - insulin glargine (BASAGLAR KWIKPEN U-100 INSULIN) 100 unit/mL (3 mL) Inject 20 units daily - Insulin Rincon, Disposable, (PEN NEEDLE) 32 gauge x 5/32 Uses up to 5 daily with insulin injection. Give with each insulin administration. - insulin aspart U-100 (NOVOLOG FLEXPEN U-100 INSULIN) 100 unit/mL (3 mL) Inject subcutaneously. Inject 15 units with meals and sliding scale as needed TDD 60 units - OMNIPOD 5 G6 PODS, GEN 5, crtg CHANGE EVERY 48 HOURS - etonogestrel (NEXPLANON) subdermal implant 68 mg 1 Each by SUBDERMAL route as directed. - hydrOXYzine pamoate (VISTARIL) 25 mg capsule daily at bedtime. - potassium chloride ER (KLOR-CON) 20 mEq tablet Take 20 mEq by mouth as needed. - DEXCOM G6 SENSOR cooper as directed. - DEXCOM G6 TRANSMITTER cooper as directed. - fluticasone (FLONASE) 50 mcg/actuation nasal spray Use 2 Sprays in each nostril once daily. Rinse mouth after use. - albuterol HFA (VENTOLIN HFA) 90 mcg/actuation inhaler Inhale 2 Puffs as instructed every 4 hours as needed. - etonogestrel (NEXPLANON) subdermal implant 68 mg ONCE - Alcohol Swabs (ALCOHOL PREP PADS) padm Apply 1 application to affected area every 4 hours as needed (blood glucose check). - Inhalational Spacing Device (AEROCHAMBER MASK LARGE) spcr 1 Device as needed. Meds Comments as of 03/04/2019: OTC pain medication. Problem List As Of Date 04/14/2024 Noted Resolved Type 1 diabetes mellitus without complication (*12/31/2011 Asthma [J45.909] 12/31/2011 Chronic lymphocytic thyroiditis [E06.3] 01/11/2016 Strain of back [S39.012A] 07/29/2016 03/04/2019 Cervicalgia [M54.2] 07/29/2016 03/04/2019 ARELIS (generalized anxiety disorder) [F41.1] 01/27/2024 Diabetic eye exam (HCC) [Z01.00, E11.9] 01/28/2024 Encounter Status:Closed by JACKELINE SHUKLA on 04/14/24 [facility] 04-14-2024 CNPN Telephone (ENWSTR) KALIE DESIR ([id number]) 2000 F Date Time Provider Department 04/14/24 VERONIKA DORADO ENWSTR During your visit today, we recorded the following information about you: Nadya Tong RN 04/14/2024 2:16 PM Signed Prior authorization submitted to [employer] for Omnipod 5 G6 PODS (GEN 5). [employer]: [id number] Nadya Tong RN April 14, 2024 2:12 PM Sherry Mcneill RN 04/14/2024 4:15 PM Signed Received call from [employer] in [place] and the patient's insurance has changed to [employer] Asking for prior auth to be resubmitted. SARA Lewis Brittney, RN 04/15/2024 8:52 AM Signed Repeat prior authorization submitted to [employer] through [employer]. Clinical chart notes faxed electronically to [employer] at . [place]: [id number] Nadya Tong RN April 15, 2024 8:52 AM Nadya Tong RN 04/19/2024 8:48 AM Signed Received fax from [employer] for APPROVAL on Omnipod 5 G6 PODS. Effective dates: 04/16/2024-04/16/2025 . See scanned document. Nadya Tong RN April 19, 2024 8:48 AM Allergies As of Date: 04/14/2024 Noted Allergy Reaction MELATONIN 06/07/2021 6 - Diarrhea PENICILLINS 12/31/2011 2 - Rash SULFATRIM DS 12/31/2011 11 - Vomiting Date Reviewed: 03/25/2024 Reviewed by: Shira Petit MA - Fully Assessed Reason for Visit: Prior Authorization [Other] Prescriptions as of 04/19/2024 - insulin glargine (BASAGLAR KWIKPEN U-100 INSULIN) 100 unit/mL (3 mL) Inject 20 units daily - Insulin Rincon, Disposable, (PEN NEEDLE) 32 gauge x 5/32 Uses up to 5 daily with insulin injection. Give with each insulin administration. - insulin aspart U-100 (NOVOLOG FLEXPEN U-100 INSULIN) 100 unit/mL (3 mL) Inject subcutaneously. Inject 15 units with meals and sliding scale as needed TDD 60 units - OMNIPOD 5 G6 PODS, GEN 5, crtg CHANGE EVERY 48 HOURS - etonogestrel (NEXPLANON) subdermal implant 68 mg 1 Each by SUBDERMAL route as directed. - hydrOXYzine pamoate (VISTARIL) 25 mg capsule daily at bedtime. - potassium chloride ER (KLOR-CON) 20 mEq tablet Take 20 mEq by mouth as needed. - DEXCOM G6 SENSOR cooper as directed. - DEXCOM G6 TRANSMITTER cooper as directed. - fluticasone (FLONASE) 50 mcg/actuation nasal spray Use 2 Sprays in each nostril once daily. Rinse mouth after use. - albuterol HFA (VENTOLIN HFA) 90 mcg/actuation inhaler Inhale 2 Puffs as instructed every 4 hours as needed. - etonogestrel (NEXPLANON) subdermal implant 68 mg ONCE - Alcohol Swabs (ALCOHOL PREP PADS) padm Apply 1 application to affected area every 4 hours as needed (blood glucose check). - Inhalational Spacing Device (AEROCHAMBER MASK LARGE) spcr 1 Device as needed. Meds Comments as of 03/04/2019: OTC pain medication. Problem List As Of Date 04/14/2024 Noted Resolved Type 1 diabetes mellitus without complication (*12/31/2011 Asthma [J45.909] 12/31/2011 Chronic lymphocytic thyroiditis [E06.3] 01/11/2016 Strain of back [S39.012A] 07/29/2016 03/04/2019 Cervicalgia [M54.2] 07/29/2016 03/04/2019 ARELIS (generalized anxiety disorder) [F41.1] 01/27/2024 Diabetic eye exam (HCC) [Z01.00, E11.9] 01/28/2024 Encounter Status:Closed by NADYA TONG [facility]14/[facility] KALIE DESIR ([id number]) 2000 F Date Time Provider Department 04/14/24 JUAN CARLOS CANDELARIO [facility] During your visit today, we recorded the following information about you: Srini Gerber LPN 04/14/2024 8:44 AM Addendum Received Request for statement of physician form from BM. This was forwarded to pcp from [facility] for pcp to complete d/t pcp manages pt's diabetes and has only been seen once in [facility]. Please contact pt once form has been completed. IAN Ruiz Roxanne, MA 04/14/2024 8:51 AM Signed Upon review of the chart Dr. Cui signed this form 3 years ago. Patient just recently starting seeing [facility] in January. MAYI Reinoso Brittney, RN 04/14/2024 12:58 PM Signed Pt in office today for diabetic education. Requesting BMV form be completed by 04/19/2024. Please call when ready to be picked up: . Thank you! Nadya Tong RN April 14, 2024 12:58 PM Juan Carlos Candelario MD 04/14/2024 3:52 PM Signed Message sent back to [facility] informing them that these forms are to be completed by the provider managing her diabetes. Allergies As of Date: 04/14/2024 Noted Allergy Reaction MELATONIN 06/07/2021 6 - Diarrhea PENICILLINS 12/31/2011 2 - Rash SULFATRIM DS 12/31/2011 11 - Vomiting Date Reviewed: 03/25/2024 Reviewed by: Shira Petit MA - Fully Assessed Reason for Visit: BMV Form For Provider Statement [Other] Prescriptions as of 04/14/2024 - insulin glargine (BASAGLAR KWIKPEN U-100 INSULIN) 100 unit/mL (3 mL) Inject 20 units daily - Insulin Rincon, Disposable, (PEN NEEDLE) 32 gauge x 5/32 Uses up to 5 daily with insulin injection. Give with each insulin administration. - insulin aspart U-100 (NOVOLOG FLEXPEN U-100 INSULIN) 100 unit/mL (3 mL) Inject subcutaneously. Inject 15 units with meals and sliding scale as needed TDD 60 units - OMNIPOD 5 G6 PODS, GEN 5, crtg CHANGE EVERY 48 HOURS - etonogestrel (NEXPLANON) subdermal implant 68 mg 1 Each by SUBDERMAL route as directed. - hydrOXYzine pamoate (VISTARIL) 25 mg capsule daily at bedtime. - potassium chloride ER (KLOR-CON) 20 mEq tablet Take 20 mEq by mouth as needed. - DEXCOM G6 SENSOR cooper as directed. - DEXCOM G6 TRANSMITTER cooper as directed. - fluticasone (FLONASE) 50 mcg/actuation nasal spray Use 2 Sprays in each nostril once daily. Rinse mouth after use. - albuterol HFA (VENTOLIN HFA) 90 mcg/actuation inhaler Inhale 2 Puffs as instructed every 4 hours as needed. - etonogestrel (NEXPLANON) subdermal implant 68 mg ONCE - Alcohol Swabs (ALCOHOL PREP PADS) padm Apply 1 application to affected area every 4 hours as needed (blood glucose check). - Inhalational Spacing Device (AEROCHAMBER MASK LARGE) spcr 1 Device as needed. Meds Comments as of 03/04/2019: OTC pain medication. Problem List As Of Date 04/14/2024 Noted Resolved Type 1 diabetes mellitus without complication (*12/31/2011 Asthma [J45.909] 12/31/2011 Chronic lymphocytic thyroiditis [E06.3] 01/11/2016 Strain of back [S39.012A] 07/29/2016 03/04/2019 Cervicalgia [M54.2] 07/29/2016 03/04/2019 ARELIS (generalized anxiety disorder) [F41.1] 01/27/2024 Diabetic eye exam (HCC) [Z01.00, E11.9] 01/28/2024 Encounter Status:Closed by JUAN CARLOS CANDELARIO on 04/14/24 [facility] (ENWSTR) KALIE DESIR ([id number]) 2000 F Date Time Provider Department 04/12/24 VERONIKA DORADO ENMELISSATR During your visit today, we recorded the following information about you: Nadya Tong RN 04/12/2024 12:00 PM Signed Pt dropped off 2 copies of BMV Forms for provider to fill out. This will be required since Pt is a type 1 diabetes in order to retain her driving privileges. Veronika Dorado CNP is not back in [place] office until 04/14/2024. Placed on provider's desk awaiting signature. Will call Pt once completed. Nadya Tong RN April 12, 2024 11:44 AM Nadya Tong RN 04/14/2024 8:03 AM Signed Veronika Dorado CNP is deferring BMV paperwork to Pt's PCP, Chasity Hodge PA-C since she's been managing Pt's type 1 diabetes for the past 3 years and knows her well. Veronika has only had 1 visit with this patient. Will fax BMV paperwork over to Chasity's office to be completed. Please notify Pt once this is completed for pick-up. Nadya Tong RN April 14, 2024 8:03 AM Juan Carlos Candelario MD 04/14/2024 3:51 PM Signed Veronika this patient's type 1 diabetes was not being managed by myself or Chasity. She had been seeing Endocrine at [facility]. Even though you may have only seen her once you just saw her in January 2024. These forms need to be completed by the provider managing her diabetes which would be you. I would suggest if your not able to answer the questions you have her come back in to see you to complete. Nadya Tong RN 04/28/2024 9:36 AM Signed Completed BMV form signed by Veronika Dorado CNP and faxed to [facility] Attn: Special Case Unit at . Copy made and will be scanned into Pt's chart. Nadya Tong RN April 28, 2024 9:36 AM Allergies As of Date: 04/12/2024 Noted Allergy Reaction MELATONIN 06/07/2021 6 - Diarrhea PENICILLINS 12/31/2011 2 - Rash SULFATRIM DS 12/31/2011 11 - Vomiting Date Reviewed: 03/25/2024 Reviewed by: Shira Petit MA - Fully Assessed Reason for Visit: Provider Statement for Driving [Other] Prescriptions as of 04/28/2024 - insulin glargine (BASAGLAR KWIKPEN U-100 INSULIN) 100 unit/mL (3 mL) Inject 20 units daily - Insulin Rincon, Disposable, (PEN NEEDLE) 32 gauge x 5/32 Uses up to 5 daily with insulin injection. Give with each insulin administration. - insulin aspart U-100 (NOVOLOG FLEXPEN U-100 INSULIN) 100 unit/mL (3 mL) Inject subcutaneously. Inject 15 units with meals and sliding scale as needed TDD 60 units - OMNIPOD 5 G6 PODS, GEN 5, crtg CHANGE EVERY 48 HOURS - etonogestrel (NEXPLANON) subdermal implant 68 mg 1 Each by SUBDERMAL route as directed. - hydrOXYzine pamoate (VISTARIL) 25 mg capsule daily at bedtime. - potassium chloride ER (KLOR-CON) 20 mEq tablet Take 20 mEq by mouth as needed. - DEXCOM G6 SENSOR cooper as directed. - DEXCOM G6 TRANSMITTER cooper as directed. - fluticasone (FLONASE) 50 mcg/actuation nasal spray Use 2 Sprays in each nostril once daily. Rinse mouth after use. - albuterol HFA (VENTOLIN HFA) 90 mcg/actuation inhaler Inhale 2 Puffs as instructed every 4 hours as needed. - etonogestrel (NEXPLANON) subdermal implant 68 mg ONCE - Alcohol Swabs (ALCOHOL PREP PADS) padm Apply 1 application to affected area every 4 hours as needed (blood glucose check). - Inhalational Spacing Device (AEROCHAMBER MASK LARGE) spcr 1 Device as needed. Meds Comments as of 03/04/2019: OTC pain medication. Problem List As Of Date 04/12/2024 Noted Resolved Type 1 diabetes mellitus without complication (*12/31/2011 Asthma [J45.909] 12/31/2011 Chronic lymphocytic thyroiditis [E06.3] 01/11/2016 Strain of back [S39.012A] 07/29/2016 03/04/2019 Cervicalgia [M54.2] 07/29/2016 03/04/2019 AERLIS (generalized anxiety disorder) [F41.1] 01/27/2024 Diabetic eye exam (HCC) [Z01.00, E11.9] 01/28/2024 Encounter Status:Closed by NADYA TONG on 04/12/24 [facility] Adam 04-05-2024 PASTOR Telephone (ENWSTR) KALIE DESIR ([id number]) 2000 F Date Time Provider Department 04/05/24 VERONIKA DORADO During your visit today, we recorded the following information about you: Allergies As of Date: 04/05/2024 Noted Allergy Reaction MELATONIN 06/07/2021 6 - Diarrhea PENICILLINS 12/31/2011 2 - Rash SULFATRIM DS 12/31/2011 11 - Vomiting Date Reviewed: 03/25/2024 Reviewed by: Shira Petit MA - Fully Assessed Prescriptions as of 04/05/2024 - OMNIPOD 5 G6 PODS, GEN 5, crtg CHANGE EVERY 48 HOURS - etonogestrel (NEXPLANON) subdermal implant 68 mg 1 Each by SUBDERMAL route as directed. - hydrOXYzine pamoate (VISTARIL) 25 mg capsule daily at bedtime. - insulin aspart U-100 (NOVOLOG) 100 unit/mL Inject 100 Units subcutaneously as needed. omnipod - insulin glargine 100 unit/mL (3 mL) 15 Units. - insulin lispro 100 unit/mL injection INJECT 100 UNITS SUBCUTANEOUSLY EVERY DAY - potassium chloride ER (KLOR-CON) 20 mEq tablet Take 20 mEq by mouth as needed. - DEXCOM G6 SENSOR cooper as directed. - DEXCOM G6 TRANSMITTER cooper as directed. - fluticasone (FLONASE) 50 mcg/actuation nasal spray Use 2 Sprays in each nostril once daily. Rinse mouth after use. - albuterol HFA (VENTOLIN HFA) 90 mcg/actuation inhaler Inhale 2 Puffs as instructed every 4 hours as needed. - etonogestrel (NEXPLANON) subdermal implant 68 mg ONCE - Alcohol Swabs (ALCOHOL PREP PADS) padm Apply 1 application to affected area every 4 hours as needed (blood glucose check). - Inhalational Spacing Device (AEROCHAMBER MASK LARGE) spcr 1 Device as needed. Meds Comments as of 03/04/2019: OTC pain medication. Problem List As Of Date 04/05/2024 Noted Resolved Type 1 diabetes mellitus without complication (*12/31/2011 Asthma [J45.909] 12/31/2011 Chronic lymphocytic thyroiditis [E06.3] 01/11/2016 Strain of back [S39.012A] 07/29/2016 03/04/2019 Cervicalgia [M54.2] 07/29/2016 03/04/2019 ARELIS (generalized anxiety disorder) [F41.1] 01/27/2024 Diabetic eye exam (HCC) [Z01.00, E11.9] 01/28/2024 Encounter Status:Closed by NADYA TONG on 04/05/24 [facility] CNPNon 04-01-2024 CNPN Telephone (ENWSTR) KALIE DESIR ([id number]) 2000 F Date Time Provider Department 04/01/24 VERONIKA DORADO ENWSTR During your visit today, we recorded the following information about you: Kaylen Shaffer MA 04/01/2024 3:29 PM Signed Please help patient schedule with educator. Kaylen Shaffer MA Allergies As of Date: 04/01/2024 Noted Allergy Reaction MELATONIN 06/07/2021 6 - Diarrhea PENICILLINS 12/31/2011 2 - Rash SULFATRIM DS 12/31/2011 11 - Vomiting Date Reviewed: 03/25/2024 Reviewed by: Shira Petit MA - Fully Assessed Reason for Visit: Orders [681] Cmt: Referral to education Prescriptions as of 04/19/2024 - insulin glargine (BASAGLAR KWIKPEN U-100 INSULIN) 100 unit/mL (3 mL) Inject 20 units daily - Insulin Rincon, Disposable, (PEN NEEDLE) 32 gauge x 5/32 Uses up to 5 daily with insulin injection. Give with each insulin administration. - insulin aspart U-100 (NOVOLOG FLEXPEN U-100 INSULIN) 100 unit/mL (3 mL) Inject subcutaneously. Inject 15 units with meals and sliding scale as needed TDD 60 units - OMNIPOD 5 G6 PODS, GEN 5, crtg CHANGE EVERY 48 HOURS - etonogestrel (NEXPLANON) subdermal implant 68 mg 1 Each by SUBDERMAL route as directed. - hydrOXYzine pamoate (VISTARIL) 25 mg capsule daily at bedtime. - potassium chloride ER (KLOR-CON) 20 mEq tablet Take 20 mEq by mouth as needed. - DEXCOM G6 SENSOR cooper as directed. - DEXCOM G6 TRANSMITTER cooper as directed. - fluticasone (FLONASE) 50 mcg/actuation nasal spray Use 2 Sprays in each nostril once daily. Rinse mouth after use. - albuterol HFA (VENTOLIN HFA) 90 mcg/actuation inhaler Inhale 2 Puffs as instructed every 4 hours as needed. - etonogestrel (NEXPLANON) subdermal implant 68 mg ONCE - Alcohol Swabs (ALCOHOL PREP PADS) padm Apply 1 application to affected area every 4 hours as needed (blood glucose check). - Inhalational Spacing Device (AEROCHAMBER MASK LARGE) spcr 1 Device as needed. Meds Comments as of 03/04/2019: OTC pain medication. Problem List As Of Date 04/01/2024 Noted Resolved Type 1 diabetes mellitus without complication (*12/31/2011 Asthma [J45.909] 12/31/2011 Chronic lymphocytic thyroiditis [E06.3] 01/11/2016 Strain of back [S39.012A] 07/29/2016 03/04/2019 Cervicalgia [M54.2] 07/29/2016 03/04/2019 ARELIS (generalized anxiety disorder) [F41.1] 01/27/2024 Diabetic eye exam (HCC) [Z01.00, E11.9] 01/28/2024 Encounter Status:Closed by KAYLEN SHAFFER on 04/19/24 [facility] CNOVon 03-25-2024 CNOV Office Visit (WSTR ) THANGKALIE ([id number]) 2000 F Date Time Provider Department 03/25/24 2:00 PM ROSA ISELA GONZALEZ CINDYVALENTINO During your visit today, we recorded the following information about you: Temperature Pulse Respiration Blood pressure 99 degrees 105/minute 21/minute 118/82 Weight 67.9 kg Kailash GonzaleziniqueCHRISTOPHER.CHANGER FIXER 03/25/2024 3:10 PM Signed Subjective Patient was moving furniture 3 days ago and noticed her back started hurting on both sides and then a day later her right wrist was hurting. The history is provided by the patient. No computer language coder was used. Back Pain Review of Systems Musculoskeletal: Positive for back pain. Objective Physical Exam Constitutional: Appearance: Normal appearance. Pulmonary: Effort: Pulmonary effort is normal. Musculoskeletal: Arms: Comments: Tender in the area marked above. Neurological: Mental Status: She is alert. PAST MEDICAL HISTORY No date: Asthma 08/07/2016: Constipation No date: Diabetes mellitus type 1 (HCC) 02/15/2019: Hepatitis A PAST SURGICAL HISTORY No date: ADENOIDECTOMY PRIMARY Comment: age 18 month No date: MYRINGOTOMY W TUBE,BILATERAL(2) Comment: age 18 months 07/06/2014: NEXPLANON INSERTION ALLERGIES Melatonin, Penicillins, and Sulfatrim Ds MEDICATIONS etonogestrel (NEXPLANON) subdermal implant 68 mg 1 Each by SUBDERMAL route as directed. hydrOXYzine pamoate (VISTARIL) 25 mg capsule daily at bedtime. insulin aspart U-100 (NOVOLOG) 100 unit/mL Inject 100 Units subcutaneously as needed. omnipod insulin glargine 100 unit/mL (3 mL) 15 Units. insulin lispro 100 unit/mL injection INJECT 100 UNITS SUBCUTANEOUSLY EVERY DAY OMNIPOD 5 G6 PODS, GEN 5, crtg CHANGE EVERY 48-72 HOURS potassium chloride ER (KLOR-CON) 20 mEq tablet Take 20 mEq by mouth as needed. DEXCOM G6 SENSOR cooper as directed. DEXCOM G6 TRANSMITTER cooper as directed. fluticasone (FLONASE) 50 mcg/actuation nasal spray Use 2 Sprays in each nostril once daily. Rinse mouth after use. albuterol HFA (VENTOLIN HFA) 90 mcg/actuation inhaler Inhale 2 Puffs as instructed every 4 hours as needed. etonogestrel (NEXPLANON) subdermal implant 68 mg ONCE Alcohol Swabs (ALCOHOL PREP PADS) padm Apply 1 application to affected area every 4 hours as needed (blood glucose check). Inhalational Spacing Device (AEROCHAMBER MASK LARGE) spcr 1 Device as needed. FAMILY HISTORY Problem Relation Age of Onset Hypertension Mother None Father Allergies Sister None Maternal Grandmother None Maternal Grandfather Diabetes Paternal Grandmother Hypertension Paternal Grandfather Social History Tobacco Use Smoking status: Never Passive exposure: Yes Smokeless tobacco: Never Tobacco comments: parents inside/outside Vaping Use Vaping status: Never Used Substance Use Topics Alcohol use: Yes Comment: occasional Drug use: Yes Types: Marijuana Comment: Hx of marijuana ASSESSMENT/PLAN: 1. Pain - ICD9: 780.96, ICD10: R52 - XR WRIST INJURY 4V PA/LAT/OBL/SCAPH RIGHT - XR LUMBAR GENERAL 3V AP/LAT/L5-S1 Acute findings on x-ray. - CYCLOBENZAPRINE 10 MG TABLET Patient was educated about proper use of medication and supportive therapy patient was educated that medication will make her drowsy not to drive or operate machinery on it. Patient will give it a few weeks and follow-up with primary care if signs and symptoms seem to be getting worse not better. Rosa Isela Gonzalez APRN.CHANGER FIXER Allergies As of Date: 03/25/2024 Noted Allergy Reaction MELATONIN 06/07/2021 6 - Diarrhea PENICILLINS 12/31/2011 2 - Rash SULFATRIM DS 12/31/2011 11 - Vomiting Date Reviewed: 03/25/2024 Reviewed by: Shira Petit MA - Fully Assessed Reason for Visit: Back Pain [12] Cmt: Lower back pain x 3 days Right wrist injury x 2 days Primary Visit Diagnosis:Pain [R52] Order(s):XR WRIST INJURY 4V PA/LAT/OBL/SCAPH RIGHT [[id number]] Order #: [id number] FUTURE XR LUMBAR GENERAL 3V AP/LAT/L5-S1 [[id number]] Order #: [id number] FUTURE cyclobenzaprine (FLEXERIL) 10 mg tabletTake 1 tablet by mouth two times a day as needed for muscle spasm for up to 5 days.Disp: 10 tabletRfl: 0 Prescriptions as of 03/25/2024 - cyclobenzaprine (FLEXERIL) 10 mg tablet Take 1 tablet by mouth two times a day as needed for muscle spasm for up to 5 days. - etonogestrel (NEXPLANON) subdermal implant 68 mg 1 Each by SUBDERMAL route as directed. - hydrOXYzine pamoate (VISTARIL) 25 mg capsule daily at bedtime. - insulin aspart U-100 (NOVOLOG) 100 unit/mL Inject 100 Units subcutaneously as needed. omnipod - insulin glargine 100 unit/mL (3 mL) 15 Units. - insulin lispro 100 unit/mL injection INJECT 100 UNITS SUBCUTANEOUSLY EVERY DAY - OMNIPOD 5 G6 PODS, GEN 5, crtg CHANGE EVERY 48-72 HOURS - potassium chloride ER (KLOR-CON) 20 mEq tablet Take 20 mEq by mouth as needed. - DEXCOM G6 S (more content not included)... Normal [facility] No Panel Informationon 03-25 IMPRESSION: 1. Negative right wrist. 2. Normal lumbar spine series. Timekeeper: MIKAELA Transcribe Date/Time: Mar 25 2024 2:54P Dictated by : JACKELINE WALKER MD This examination was interpreted and the report reviewed and electronically signed by: JACKELINE WALKER MD on Mar 25 2024 2:58PM [facility] DIVISION OF RADIOLOGY Radiology Study observation (narrative) [facility] No Panel InformationOrdered By: Ccf Provider on 03-25-2024 [facility] XR LUMBAR 3V AP/LAT/L5-S1on 03-25-2024 XR LUMBAR 3V AP/LAT/L5-S1 * * *Final Report* * * DATE OF EXAM: Mar 25 2024 2:38PM WOX [id number] - XR LUMBAR 3V AP/LAT/L5-S1 / PROCEDURE REASON: Pain * * * * Physician Interpretation * * * * EXAMINATION: RIGHT WRIST X-RAY SERIES HISTORY: Pain COMPARISON: None available. TECHNIQUE: PA, lateral, oblique, scaphoid RESULT: No fracture, dislocation or destructive changes. Joint spaces and articular surfaces are preserved. Soft tissues appear within normal limits. EXAMINATION: LUMBAR SPINE SERIES, 03/25/2024 2:38 PM HISTORY: Pain TECHNIQUE: Weightbearing AP and lateral, and restricted lateral of the lumbosacral junction, lumbar spine COMPARISON: None available. RESULT: The height and alignment of the spine appears satisfactory. The disk space heights appear preserved. There is no evidence of acute fracture or dislocation. IMPRESSION: 1. Negative right wrist. 2. Normal lumbar spine series. Timekeeper: PSCB Transcribe Date/Time: Mar 25 2024 2:54P Dictated by : JACKELINE WALKER MD This examination was interpreted and the report reviewed and electronically signed by: JACKELINE WALKER MD on Mar 25 2024 2:58PM EST [id number] Normal [facility] XR Lumbar spine 3 Viewson * * *Final Report* * * DATE OF EXAM: Mar 25 2024 2:38PM WOX 5228 - XR LUMBAR 3V AP/LAT/L5-S1 / PROCEDURE REASON: Pain * * * * Physician Interpretation * * * * EXAMINATION: RIGHT WRIST X-RAY SERIES HISTORY: Pain COMPARISON: None available. TECHNIQUE: PA, lateral, oblique, scaphoid RESULT: No fracture, dislocation or destructive changes. Joint spaces and articular surfaces are preserved. Soft tissues appear within normal limits. EXAMINATION: LUMBAR SPINE SERIES, 03/25/2024 2:38 PM HISTORY: Pain TECHNIQUE: Weightbearing AP and lateral, and restricted lateral of the lumbosacral junction, lumbar spine COMPARISON: None available. RESULT: The height and alignment of the spine appears satisfactory. The disk space heights appear preserved. There is no evidence of acute fracture or dislocation. DIVISION OF RADIOLOGY Provider, [facility] - 03/25/2024 * * *Final Report* * * DATE OF EXAM: Mar 25 2024 2:38PM WOX 5228 - XR LUMBAR 3V AP/LAT/L5-S1 / PROCEDURE REASON: Pain * * * * Physician Interpretation * * * * EXAMINATION: RIGHT WRIST X-RAY SERIES HISTORY: Pain COMPARISON: None available. TECHNIQUE: PA, lateral, oblique, scaphoid RESULT: No fracture, dislocation or destructive changes. Joint spaces and articular surfaces are preserved. Soft tissues appear within normal limits. EXAMINATION: LUMBAR SPINE SERIES, 03/25/2024 2:38 PM HISTORY: Pain TECHNIQUE: Weightbearing AP and lateral, and restricted lateral of the lumbosacral junction, lumbar spine COMPARISON: None available. RESULT: The height and alignment of the spine appears satisfactory. The disk space heights appear preserved. There is no evidence of acute fracture or dislocation. IMPRESSION IMPRESSION: 1. Negative right wrist. 2. Normal lumbar spine series. Timekeeper: MIKAELA Transcribe Date/Time: Mar 25 2024 2:54P Dictated by : JACKELINE WALKER MD This examination was interpreted and the report reviewed and electronically signed by: JACKELINE WALKER MD on Mar 25 2024 2:58PM EST [facility] XR WRIST 4V PA/LAT/OBL/SCAPH RTon 03-25-2024 XR WRIST 4V PA/LAT/OBL/SCAPH RT * * *Final Report* * * DATE OF EXAM: Mar 25 2024 2:38PM WOX 5273 - XR WRIST 4V PA/LAT/OBL/SCAPH RT / PROCEDURE REASON: Pain * * * * Physician Interpretation * * * * EXAMINATION: RIGHT WRIST X-RAY SERIES HISTORY: Pain COMPARISON: None available. TECHNIQUE: PA, lateral, oblique, scaphoid RESULT: No fracture, dislocation or destructive changes. Joint spaces and articular surfaces are preserved. Soft tissues appear within normal limits. EXAMINATION: LUMBAR SPINE SERIES, 03/25/2024 2:38 PM HISTORY: Pain TECHNIQUE: Weightbearing AP and lateral, and restricted lateral of the lumbosacral junction, lumbar spine COMPARISON: None available. RESULT: The height and alignment of the spine appears satisfactory. The disk space heights appear preserved. There is no evidence of acute fracture or dislocation. IMPRESSION: 1. Negative right wrist. 2. Normal lumbar spine series. Timekeeper: MIKAELA Transcribe Date/Time: Mar 25 2024 2:54P Dictated by : JACKELINE WALKER MD This examination was interpreted and the report reviewed and electronically signed by: JACKELINE WALKER MD on Mar 25 2024 2:58PM EST [id number] Normal [facility] XR Wrist - right 4 Viewson 0 03-25-2024 * * *Final Report* * * DATE OF EXAM: Mar 25 2024 2:38PM WOX 5273 - XR WRIST 4V PA/LAT/OBL/SCAPH RT / PROCEDURE REASON: Pain * * * * Physician Interpretation * * * * EXAMINATION: RIGHT WRIST X-RAY SERIES HISTORY: Pain COMPARISON: None available. TECHNIQUE: PA, lateral, oblique, scaphoid RESULT: No fracture, dislocation or destructive changes. Joint spaces and articular surfaces are preserved. Soft tissues appear within normal limits. EXAMINATION: LUMBAR SPINE SERIES, 03/25/2024 2:38 PM HISTORY: Pain TECHNIQUE: Weightbearing AP and lateral, and restricted lateral of the lumbosacral junction, lumbar spine COMPARISON: None available. RESULT: The height and alignment of the spine appears satisfactory. The disk space heights appear preserved. There is no evidence of acute fracture or dislocation. DIVISION OF RADIOLOGY Provider, [facility]/25/[facility]24 * * *Final Report* * * DATE OF EXAM: Mar 25 2024 2:38PM WOX 5273 - XR WRIST 4V PA/LAT/OBL/SCAPH RT / PROCEDURE REASON: Pain * * * * Physician Interpretation * * * * EXAMINATION: RIGHT WRIST X-RAY SERIES HISTORY: Pain COMPARISON: None available. TECHNIQUE: PA, lateral, oblique, scaphoid RESULT: No fracture, dislocation or destructive changes. Joint spaces and articular surfaces are preserved. Soft tissues appear within normal limits. EXAMINATION: LUMBAR SPINE SERIES, 03/25/2024 2:38 PM HISTORY: Pain TECHNIQUE: Weightbearing AP and lateral, and restricted lateral of the lumbosacral junction, lumbar spine COMPARISON: None available. RESULT: The height and alignment of the spine appears satisfactory. The disk space heights appear preserved. There is no evidence of acute fracture or dislocation. IMPRESSION IMPRESSION: 1. Negative right wrist. 2. Normal lumbar spine series. Timekeeper: MIKAELA Transcribe Date/Time: Mar 25 2024 2:54P Dictated by : JACKELINE WALKER MD This examination was interpreted and the report reviewed and electronically signed by: JACKELINE WALKER MD on Mar 25 2024 2:58PM [facility] CNOVon 03-10-2024 CNOV Office Visit (OBGYWM ) KALIE DESIR ([id number]) 2000 F Date Time Provider Department 03/10/24 10:30 AM EVELYN CARRGYWM During your visit today, we recorded the following information about you: Blood pressure Last Period 122/70 02/22/24 Evelyn Carr MD 03/10/2024 11:10 AM Signed Kalie is a 23 year old who presents for Nexplanon removal for scheduled 3 year removal UNIVERSAL PROTOCOL / SAFETY CHECKLIST Procedure to be Performed: nexplanon removal TECHNIQUE: Patient placed in supine position with left arm bent at the elbow and placed over the head. Skin cleansed with betadine. 1mL of 1% lidocaine with epi injected subQ along insertion site. Scalpel used to made a 5mm stab incision superficially at distal end of Nexplanon. Device removed under sterile technique with a small hemostat. Sterile pressure dressing applied. AANDP: 23 year old here for Nexplanon removal Nexplanon removed intact without difficulty. The patient was instructed to remove the dressing after 24 hours. Contraceptive plans nexplanon Evelyn Carr MD Kalie is a 23 year old patient who presents for Nexplanon insertion. Patient's last menstrual period was 07/21/2023 (approximate). VITALS: LMP 07/21/2023 test: negative Nexplanon lot #: [id number] Exp date: 10/2025 UNIVERSAL PROTOCOL / SAFETY CHECKLIST Procedure to be Performed: nexplanon insertion Sign In: A Moment of CARE was completed. Personnel directly involved with the procedure wore the appropriate PPE (Personal Protective Equipment). Patient/Surrogate Stated/Verified: PATIENT VERIFIED(optional for EMERGENT procedures): Patient name, Date of , Relevant allergies, and The intended procedure Time Out Communication: Intended patient and procedure match the source documents. Consent documented and matches the intended procedure. Sign Out: SIGN OUT (optional for EMERGENT procedures): No specimen collected. All instruments, equipment, possible retained foreign bodies accounted for. Post-procedure follow-up management communicated and Plan of Care Visit completed when applicable. TECHNIQUE: Patient placed in supine position with left) bent at the elbow and placed over the head. Skin cleansed with betadine. 1 mL of 1% lidocaine with 1:100,000 epi injected subQ along insertion site. Nexplanon martin inserted under sterile technique. After insertion by the provider, the martin was palpable under the skin by both patient and provider. Steristrips and sterile pressure dressing applied. AANDP: Nexplanon inserted without complications. Patient user card was filled out and given to the patient. The patient was instructed to remove the dressing after 24 hours. Advised to use backup contraception for 7 days. MD jill Sosa Annalee, LPN 03/10/2024 10:19 AM Signed NEXPLANON PATIENT EDUCATION You may remove dressing in 24 hours. Expect some bruising around insertion site. You may take over the counter pain medication (i.e. Tylenol, motrin, advil, etc) if you have discomfort. Call your provider with excessive bruising or pain. Continue to use condoms for STD prevention. You should use backup contraception for 7 days to prevent . Referring Provider: EVELYN CARR [[id number]] Allergies As of Date: 03/10/2024 Noted Allergy Reaction MELATONIN 06/07/2021 6 - Diarrhea PENICILLINS 12/31/2011 2 - Rash SULFATRIM DS 12/31/2011 11 - Vomiting Date Reviewed: 03/10/2024 Reviewed by: Frances Clayton LPN - Fully Assessed Reason for Visit: nexplanon removal and insertion [Other] Primary Visit Diagnosis:Insertion of implantable subdermal contraceptive [Z30.017] Order(s):etonogestrel (NEXPLANON) subdermal implant 68 mg1 Each by SUBDERMAL route as directed.Disp: 1 EachRfl: 0 UA DIP,URINE HCG (POC) [[id number]] Order #: [id number] #:[id number] Prescriptions as of 03/10/2024 - etonogestrel (NEXPLANON) subdermal implant 68 mg 1 Each by SUBDERMAL route as directed. - hydrOXYzine pamoate (VISTARIL) 25 mg capsule daily at bedtime. - insulin aspart U-100 (NOVOLOG) 100 unit/mL Inject 100 Units subcutaneously as needed. omnipod - insulin glargine 100 unit/mL (3 mL) 15 Units. - insulin lispro 100 unit/mL injection INJECT 100 UNITS SUBCUTANEOUSLY EVERY DAY - OMNIPOD 5 G6 PODS, GEN 5, crtg CHANGE EVERY 48-72 HOURS - potassium chloride ER (KLOR-CON) 20 mEq tablet Take 20 mEq by mouth as needed. - DEXCOM G6 SENSOR cooper as directed. - DEXCOM G6 TRANSMITTER cooper as directed. - fluticasone (FLONASE) 50 mcg/actuation nasal spray Use 2 Sprays in each nostril once daily. Rinse mouth after use. - albuterol HFA (VENTOLIN HFA) 90 mcg/actuation inhaler Inhale 2 Puffs as instructed every 4 hours as needed. - etonogestrel (NEXPLANON) subdermal implant 68 mg ONCE - Alcohol (more content not included)... 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) Internal QC OK [facility] Location:[facility], [facility] [place], [place], [id number] [place] [address] POINT OF CARE [facility] BACTERIAL VAGINOSIS NAATon 0 03-01-2024 Lactobacillus crispatus+gasseri+chani senii + Gardnerella vaginalis + Atopobium vaginae rRNA JEANNETTE+probe Ql (Vag fld) Negative Normal Negative for bacterial vaginosis [facility] Comment on above: Order Comment: Speci men Type: SWABOrdering Facility: [facility] Address: [address] [place] [address] Performed By: #### 3 6902-5, BVAMP ####[facility] LABCLIA [id number] [place] [address] [place] C. trachomatis+N. gonorrhoea e DNA JEANNETTE+probe Ql (Unsp spec)on 03-01-2024 C. trachomatis rRNA JEANNETTE+probe Ql (Unsp spec) Negative Normal Negative for Chlamydia trachomatis by amplificaton [facility] Comment on above: Order Comment: Speci men Type: SWABOrdering Facility: [facility] Address: [address] [place] [address] Performed By: #### 3 6902-5, BVAMP ####[facility] LABCLIA [id number] [place] [address] [place] N. gonorrhoeae rRNA JEANNETTE+probe Ql (Unsp spec) Negative Normal Negative for Neisseria gonorrhoeae by amplification [facility] Comment on above: Order Comment: Speci men Type: SWABOrdering Facility: [facility] Address: [address] [place] [address] Performed By: #### 3 6902-5, BVAMP ####[facility] LABCLIA [id number] [place] [address] [place] MICHELLE/TRICHOMONAS NAATon 0 03-01-2024 C. glabrata RNA JEANNETTE+probe Ql (Vag fld) Negative Normal Negative for Michelle glabrata [facility] Comment on above: Order Comment: Speci men Type: SWABOrdering Facility: [facility] Address: [address] [place] [address] Performed By: #### C VTV ####[facility] LABCLIA [id number] [place] [address] [place] Michelle sp DNA JEANNETTE+probe Ql (Vag fld) Negative Normal Negative for Michelle species [facility] Comment on above: Order Comment: Speci men Type: SWABOrdering Facility: [facility] Address: [address] [place] [address] Performed By: #### C VTV ####[facility] LABCLIA [id number] [place] [address] [place] T. vaginalis DNA JEANNETTE+probe Ql (Unsp spec) Negative Normal Negative for Trichomonas vaginalis by amplification [facility] Comment on above: Order Comment: Speci men Type: SWABOrdering Facility: [facility] Address: [address] [place] [address] Performed By: #### C VTV ####[facility] LABCLIA [id number] [place] [address] [place] CNCOon 03-01-2024 CNCO Letter Text Normal [facility] CNOVon 03-01-2024 CNOV Office Visit (OBGYWM ) KALIE DESIR ([id number]) 2000 F Date Time Provider Department 03/01/24 11:10 AM EVELYN CARR OBGYWM During your visit today, we recorded the following information about you: Blood pressure Weight Height 120/72 69.4 kg 1.49 m Evelyn Carr MD 03/01/2024 11:46 AM Signed Material Combiner offered: Patient accepts, visit chaperoned by nurse. Kalie is a 23 year old who presents for an annual gynecologic exam with complaints including occ yeast infections and noting that her Nexplanon was inserted 04-13-20 and accordingly is past due for replacement. Menses: cycles rarely and November and February were the last two. Type one diabetic diagnosed at age 9 and with a HgbA1C of ~ 11 Ciarra Discount Total Savings: $ [facility] extends a ciarra discount to all qualifying patients. This reduces your estimated cost and estimated responsibility. -7 days duration. Contraception: Nexplanon HPV vaccine: Yes Last Pap: this is her first HPV: negative History of abnormal pap: No Last mammogram: never Sexually active: Yes Last sexual contact: 1 mo ago. OB History T0 L0 SAB0 IAB0 Ectopic0 Multiple0 Live Births0 Drum Sander Offbearer History LMP: 07/21/2023 (Approximate), Implant Age at Menarche: Age at First : Age at Menopause: Drum Sander Offbearer History Comments: Sexual Activity: Yes; Female, Male Contraception: Implant PAST MEDICAL HISTORY No date: Asthma 08/07/2016: Constipation No date: Diabetes mellitus type 1 (HCC) 02/15/2019: Hepatitis APAST SURGICAL HISTORY No date: ADENOIDECTOMY PRIMARY Comment: age 18 month No date: MYRINGOTOMY W TUBE,BILATERAL(2) Comment: age 18 months 07/06/2014: NEXPLANON INSERTION FAMILY HISTORY Problem Relation Age of Onset Hypertension Mother None Father Allergies Sister None Maternal Grandmother None Maternal Grandfather Diabetes Paternal Grandmother Hypertension Paternal Grandfather SOCIAL HISTORY Social History Tobacco Use Smoking status: Never Passive exposure: Yes Smokeless tobacco: Never Tobacco comments: parents inside/outside Vaping Use Vaping Use: Never used Substance Use Topics Alcohol use: Yes Comment: occasional Drug use: Yes Types: Marijuana Comment: Hx of marijuana REVIEW OF SYSTEMS Abdomen: No abdominal pain, nausea, vomiting, diarrhea, or constipation. No bloating, early satiety, indigestion, or increased flatulence. Bladder: No dysuria, gross hematuria, urinary frequency, urinary urgency, or incontinence. Breast: No breast lumps, nipple d/c, overlying skin changes, redness or skin retraction. Allergies and current medication updated:Yes EXAM: BP 120/72 Ht 4' 10.661 (1.49m) Wt 153 lb (69.4kg) LMP 07/21/2023 BMI 31.26 kg/(m2). GENERAL: pleasant, female in no apparent distress HEENT: Normocephalic, atraumatic, mucus membranes moist, and no lesions NECK: Supple, full range of motion, no adenopathy, and thyroid normal DERMATOLOGY: Normal, without lesions, non-icteric, and non-hirsute BREAST: soft, non-tender, symmetric, no dominant mass, normal nipple-areolar complex, no lymphadenopathy, and no nipple discharge CHEST: Normal inspiratory effort ABDOMEN: soft, non-tender, and no masses PELVIC: external genitalia normal, normal Bartholin's glands, urethra, [place]'s glands, no vulvar lesions, no cervical lesions, good vaginal support, physiologic discharge present, normal appearing perineal body and perianal region BIMANUAL: uterus normal size, shape and consistency, no adnexal masses, and non-tender RECTOVAGINAL: deferred. ASSESSMENT/PLAN: 1) Health maintenance: Pap done with reflex HPV. 2) Contraception: Nexplanon. Contraceptive options reviewed and information provided. NEEDS REMOVED AND REPLACED LENCHO 3) STD screening: Accepted STD check for Gonorrhea and Chlamydia. 4) Follow up Nexplanon r/marco year or sooner as needed Evelyn Carr MD Referring Provider: CHASITY HODGE [[id number]] Allergies As of Date: 03/01/2024 Noted Allergy Reaction MELATONIN 06/07/2021 6 - Diarrhea PENICILLINS 12/31/2011 2 - Rash SULFATRIM DS 12/31/2011 11 - Vomiting Date Reviewed: 03/01/2024 Reviewed by: Arely Yanes MA - Fully Assessed Reason for Visit: Well Woman [[id number]] Primary Visit Diagnosis:Encounter for gynecological examination (general) (routine) without abnormal findings [Z01.419] Other Visit Diagnoses:Well adult exam [Z00.00] Screening for cervical cancer [Z12.4] Encounter for screening for human papillomavirus (HPV) [Z11.51] Screen for STD (sexually transmitted disease) [Z11.3] Insertion of Nexplanon [Z30.017] Encounter for removal and reinsertion of Nexplanon [Z30.46] Order(s):CONSULT TO GYNECOLOGY [9013] Order #: [id number]: 1 PAP TEST [YVL7981] Order #: [id number] BACTERIAL VAGINOSIS NAAT [SQBVAMP] Order #: [id number] (more content not included)... Normal [facility] PAP TESTon 03-01-2024 ADEQUACY Satisfactory for interpretation. Normal [facility] Comment on above: Order Comment: Speci men Type: FLUID SPECIMENOrdering Facility: [facility] Address: [address] [place] [address] Performed By: #### L [id number] ####[facility] LABCLIA [id number] [place] [address] [place] CASE REPORT Normal [facility] Comment on above: Order Comment: Speci men Type: FLUID SPECIMENOrdering Facility: [facility] Address: [address] [place] [address] Result Comment: Gyne cologic Cytology Report Case: [id number] Authorizing Provider: Evelyn Carr MD Collected: 03/01/2024 12:19 PM Ordering Location: OB/Gynecology Received: 03/01/2024 04:14 PM First Screen: Zhorova, Nicole, CT, ASCP Specimen: Pap Test, ThinPrep, Cervix Performed By: #### L [id number] ####[facility] LABCLIA [id number] [address] [address] [place] CLINICAL HISTORY, CYTOLOGY, SURGICAL CODER Routine Exam Normal [facility] Comment on above: Order Comment: Speci men Type: FLUID SPECIMENOrdering Facility: [facility] Address: [address] [place], [place] [id number] Result Comment: Horm onal Contraceptive, No Menses Performed By: #### L [id number] ####[facility] LABCLIA [id number] [place] [id number] [place] FINAL PERFORMING LAB Normal [facility] Comment on above: Order Comment: Speci men Type: FLUID SPECIMENOrdering Facility: [facility] Address: [address] [place] [address] Result Comment: Tech nical component, sourcing engineer screening performed at [facility], [address] [place] [address] CLIA# [id number] Diagnostic interpretation performed at [facility], [address] [place], [place] [id number] CLIA# [id number] Cadd Drafter: Reese Odell M.D. Performed By: #### L [id number] ####[facility] LABCLIA [id number] [place] [id number] [place] HPV REFLEX HPV if Atypical Normal [facility] Comment on above: Order Comment: Speci men Type: FLUID SPECIMENOrdering Facility: [facility] Address: [address] [place], [place] [id number] Performed By: #### L [id number] ####[facility] LABCLIA [id number] [place] [id number] [place] INTERPRETATION, CYTOLOGY, SURGICAL CODER Normal [facility] Comment on above: Order Comment: Speci men Type: FLUID SPECIMENOrdering Facility: [facility] Address: [address] [place], [place] [id number] Result Comment: Nega tive for intraepithelial lesion or malignancy. Performed By: #### L [id number] ####[facility] LABCLIA [id number] [address] PAP DISCLAIMER COMMENT The Pap Smear is a screening test for cervical cancer. False negative results occur with all screening tests, emphasizing the need for rescreening at recommended intervals, and clinical correlation. Normal [facility] Comment on above: Order Comment: Speci men Type: FLUID SPECIMENOrdering Facility: [facility] Address: [address] [place] [address] Performed By: #### L [id number] ####[facility] LABIA [id number] [address] [place] PAP CADD DRAFTER COMMENT This specimen has been analyzed by the ThinPrep Imaging System, an automated imaging and review system, which assists the laboratory in evaluating cells on ThinPrep Pap tests. Following automated imaging, selected huerta from every slide are reviewed by a sourcing engineer. Normal [facility] Comment on above: Order Comment: Speci men Type: FLUID SPECIMENOrdering Facility: [facility] Address: [address] [place] [address] Performed By: #### L [id number] ####[facility] [id number] [address] [place] CNOVon 02-04-2024 CNOV Office Visit (ENWSTR ) KALIE DESIR ([id number]) 2000 F Date Time Provider Department 02/04/24 10:15 AM VERONIKA DORADO ENMELISSATR During your visit today, we recorded the following information about you: Temperature Pulse Blood pressure Weight 97.7 degrees 120/minute 122/74 68.8 kg Height Last Period 1.499 m 07/21/23 Veronika Dorado APRN.LIZZY 02/04/2024 10:24 AM Signed OFFICE VISIT PROGRESS NOTE CC Kalie Desir is a 23 year old who presents today for blood sugar review, insulin dosing adjust. HPI PATIENT OF DR. WILKS, ENDOCRINE Diagnosed with diabetes mellitus type 1, ~ age 9 Last endocrine OV 08/03/2020 with MAR[facility] DOLORES AGOSTO HPI 02/04/2024 Not seen for 3 years in ENDO Cannot afford 'dexcom sensor' is NOT using pump closed loop OMNIPOD PUMP for insulin injections only Patient is not counting her carbs accurately Sts that she was seeing MARIA DOLORES (Dr Chow) [facility] but was dropped as a patient due to no show//compliance issues Did see [facility] DOLORES initially DM1 since age 9 Admits does not understand carb counting, but is just now using stalin to count carbs GIO GERALDO -For past 4 months Has been using OMNIPOD/DEXCOM, no sensor for past week due to co pay and cannot afford Is getting her pump supplies through OMN[employer]OD program assistance Is working with DEXCOM to get on their asst program Has been using fingersticks for the past 4 days due to no sensor Sts her blood sugars are 150 all day when she has closed loop system in place A1C for past 3 months is 10.1% OMNIPOD settings reviewed manually CURRENT DM MEDS LISPRO via OMNIPOD insulin pump GEN 5, not using DEXCOM (SENSOR NONE FOR 4 DAYS) BASAL: 00 - 1.35 I/C ratio 1 unit for 6 grams of carbs ISF 26 SMBG Type of Monitor: Other FINGERSTICKS Frequency of Monitoring: NOT USING times a day 4 DAYS BG Values: Breakfast: 264 Lunch: 250 Dinner: 297 Bed-time: 152 Values over past week: Highest ; Lowest Hypoglycemia: no Diet: No specific diet regimen Exercise: WORK only DM REVIEW OF SYSTEMS Last Eye Exam : 2 years ago, is scheduled for February 09, 2024 Last Podiatry Exam: none Cardiorespiratory: negative, denies chest pain, pressure Claudication: no Dyslipidemia: No High Blood Pressure: No CURRENT LABS Latest Ref Rng 12/24/2023 Glucose 74 - 99 mg/dL 353 (H) BUN 7 - 21 mg/dL 17 Creatinine 0.58 - 0.96 mg/dL 0.54 (L) Sodium 136 - 144 mmol/L 136 Potassium 3.7 - 5.1 mmol/L 4.8 Chloride 98 - 107 mmol/L 102 CO2 22 - 30 mmol/L 23 Anion Gap 8 - 15 mmol/L 11 eGFR >=60 mL/min/1.73m? 131 Total Cholesterol, Nonfasting <200 mg/dL 175 Triglycerides, Nonfasting <150 mg/dL 67 HDL Cholesterol, Nonfasting >39 mg/dL 81 LDL Cholesterol, Nonfasting <100 mg/dL 81 Non HDL Cholesterol, Nonfasting <130 mg/dL 94 VLDL Cholesterol, Nonfasting <30 mg/dL 13 Total Chol/HDL Ratio, Nonfasting <5.10 mg/dL 2.16 LDL/HDL Ratio, Nonfasting <2.54 mg/dL 1.00 Creatinine, Ur Random (UCRR) 20.0 - 300.0 mg/dL 36.3 Albumin, Urine Random mg/L <12.0 Albumin/Creat Ratio -- Hemoglobin A1C 4.3 - 5.6 % 10.1 (H) Estimated Average Glucose mg/dL 243 Recent Labs 05/10/15 1500 06/07/15 1559 01/15/16 1717 08/22/16 1420 03/01/19 1305 07/24/20 1543 08/03/20 0810 12/24/23 1024 12/24/23 1029 ALT -- -- -- -- 172* 12 -- 10 -- AST -- -- -- -- 47* 11* -- 17 -- UCRR -- -- -- -- -- -- -- -- 36.3 UALBR -- -- -- -- -- -- -- -- <12.0 TSH 1.370 -- 1.420 -- 1.640 -- -- -- -- TPROT -- -- -- -- 7.1 7.5 -- 7.1 -- ALB -- -- -- -- 3.4* 4.8 -- 4.4 -- CA -- -- -- -- 9.0 9.1 -- 9.9 -- TBILI -- -- -- -- 3.5* 0.4 -- 0.5 -- ALKPHOS -- -- -- -- 215* 103 -- 79 -- GLUC -- -- -- -- 594* 245* -- 353* -- BUN -- -- -- -- 10 11 -- 17 -- CREAT -- -- -- -- 0.35* 0.42* -- 0.54* -- NA -- -- -- -- 129* 135* -- 136 -- K -- -- -- -- 4.5 3.3* -- 4.8 -- CHLOR -- -- -- -- 94* 105 -- 102 -- CO2 -- -- -- -- 23 13* -- 23 -- ANION -- -- -- -- 12 17 -- 11 -- EGFROTH -- -- -- -- >60 >60 -- 131 -- HBA1C -- < > -- < > 11.6* -- 12.9* 10.1* -- < > = values in this interval not displayed. Recent Labs 05/10/14 1538 11/17/14 1545 02/07/15 1142 06/07/15 1559 09/13/15 1643 01/11/16 1446 03/01/19 1305 08/03/20 0810 12/24/23 1024 TG 101 -- 70 -- -- -- -- -- 67 CHOL 133 -- 145 -- -- -- -- -- 175 HDL 56 -- 57 -- -- -- -- -- 81 VLDL 20 -- 14 -- -- -- -- -- 13 LDL 57 -- 74 -- -- -- -- -- 81 FASTTIME NONFASTING -- FASTING -- -- -- -- -- -- TCHDL 2.38 -- 2.54 -- -- -- -- -- 2.16 LDLHDL 1.02 -- 1.30 -- -- -- -- -- 1.00 NONHDL 77* -- 88 -- -- -- -- -- 94 HBA1C 7.5* < > 8.3* < > 8.0* < > 11.6* 12.9* 10.1* HBA0 169 < > 192 < > 183 -- 286 -- 243 < > = values in this interval not displayed. PAST MEDICAL HISTORY Diagnosis Date Asthma Constipation 08/07/2016 Diabetes mellitus type 1 (HCC) Hepatitis A 02/15/2019 PAST SURGICAL HISTORY P (more content not included)... Normal [facility] CNCOon 01-27-2024 CNCO Letter Text Normal [facility] CNOVon 01-27-2024 CNOV Office Visit (FAMPWS ) KALIE DESIR ([id number]) 2000 F Date Time Provider Department 01/27/24 9:40 AM CHASITY HODGE FAMPWS During your visit today, we recorded the following information about you: Temperature Pulse Respiration Blood pressure 98 degrees 89/minute 18/minute 100/68 Weight 68.9 kg Chasity Hodge PA-C 01/27/2024 11:15 AM Signed Chief Complaint Patient presents with: Physical HPI Kalieneda Desir is a 23 year old female who presents here today for physical. Patient with hx of type 1 DM. Poorly controlled over the years with numerous visits to ER for DKA. Is scheduled next week with new body art technician. States she is feeling more motivated to get better control of her health. Financial burdens have hindered her in the past. No specific concerns today. Past medical history, appointments, medications, allergies reviewed. [...] etonogestrel (NEXPLANON) subdermal implant 68 mg ONCE Alcohol Swabs (ALCOHOL PREP PADS) padm Apply 1 application to affected area every 4 hours as needed (blood glucose check). Inhalational Spacing Device (AEROCHAMBER MASK LARGE) spcr 1 Device as needed. (Patient not taking: Reported on 12/26/2021 ) No current facility-administered medications on file prior to visit. Social History Social History Tobacco Use Smoking status: Never Passive exposure: Yes Smokeless tobacco: Never Tobacco comments: parents inside/outside Vaping Use Vaping Use: Never used Substance Use Topics Alcohol use: No Comment: Stopped Drug use: Yes Types: Marijuana Comment: Hx of marijuana Review of Symptoms REVIEW OF SYSTEMS GENERAL: No weight loss, malaise or fevers HEENT: No changes in hearing or vision, no nose bleeds or other nasal problems NECK: Negative for lumps, goiter, pain and significant neck swelling RESPIRATORY: Negative for cough, hemoptysis, wheezing, COPD, dyspnea or shortness of breath CARDIOVASCULAR: Negative for chest pain, leg swelling, hypertension, CHF or palpitations GI: Negative for abdominal discomfort, blood in stools or black stools, change in bowel habit, heart burn, nausea, vomiting : No history of dysuria, frequency or incontinence SURGICAL CODER: Negative for abnormal vaginal bleeding, abnormal vaginal discharge or thinks she is due for new nexplanon MUSCULOSKELETAL: Negative for joint pain or swelling, back pain or muscle pain SKIN: Negative for lesions, rash, and itching PSYCH: Negative for sleep disturbance, mood disorder and recent psychosocial stressors. States marijuana helps her with sleep and her anxiety. HEMATOLOGY/LYMPHOLOGY : Negative for prolonged bleeding, bruising easily or swollen nodes ENDOCRINE: Negative for cold or heat intolerance, polyuria, polydipsia and goiter NEURO: No history of headaches, syncope, paralysis, seizures or tremors EXAM: BP 100/68 (BP Site: Left Arm, BP Position: Sitting, BP Cuff Size: Regular Adult) Pulse 110 Temp 36.7 ?C (98 ?F) Resp 18 Wt 68.9 kg (152 lb) LMP 09/11/2020 (Exact Date) SpO2 98% BMI 30.70 kg/m? BP 100/68 (BP Site: Left Arm, BP Position: Sitting, BP Cuff Size: Regular Adult) Pulse 89 Temp 36.7 ?C (98 ?F) Resp 18 Wt 68.9 kg (152 lb) LMP 09/11/2020 (Exact Date) SpO2 98% BMI 30.70 kg/m? General Appearance: Well appearing, alert, in no acute distress, well-hydrated, well nourished. and Overweight. Skin: Skin color, texture, turgor normal, no suspicious rashes or lesions on exposed skin Head: Normocephalic, no masses, lesions, tenderness or abnormalities. Eyes: Anicteric sclera. Pupils are equally round and reactive to light. Extraocular movements are intact. . Ears: External ears normal, canals clear. Nose (more content not included)... [facility] [address] Nurse Visit (ENDIMT) KALIE DESIR ([id number]) 2000 F Date Time Provider Department 01/07/24 11:00 AM JACKELINE SHUKLA During your visit today, we recorded the following information about you: Jackeline Shukla RN 01/07/2024 11:26 AM Signed DIABETES CARE AND EDUCATION VISIT Location: [place] Type of visit: In person individual PATIENT'S MAIN CONCERN TODAY: review what I need to know Support person present for education today: none Cognitive ability: Alert and oriented Motivation to learn: Interested Learning barriers identified by educator: none Method of instruction: written, verbal, and demonstration DIABETES FINDINGS: Omnipod 5 - limited automode at moment -1.35 units per hour basal if running in manual mode. Hx shows she's using about 20 units per day basal when in automode (45 units per day with her boluses) but she is without a Dexcom G6 currently. ICR of 1:6, ISF of 26mg/dL and target of 120. Discussed use of alcohol with diabetes and patient also had questions about medical marijuana usage with diabetes and it's effect on blood sugars. I encouraged her to follow up with a provider as regards the marijuana as I was unaware of it's action on blood sugars. 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 Meal Planning: reviewed basic meal planning recommendations Medications: insulin ordered by Pj Chow, not on file in our system Problem Solving: Reviewed hyperglycemia and hypoglycemia Reducing Risks: benefits reviewed of controlling sugars to avoid complications HANDOUTS: Healthy You: Survival Skills and Healthy You: Planning Healthy Meals LEARNING RESPONSE: Healthy eating: Demonstrated understanding/compete ncy today or at previous visit Taking medications: Demonstrated understanding/compete ncy today or at previous visit Monitoring glucose: Demonstrated understanding/compete ncy today or at previous visit Acute complications: Demonstrated understanding/compete ncy today or at previous visit Chronic complications: Demonstrated understanding/compete ncy today or at previous visit POSSIBLE FUTURE TOPICS: 1. Follow up as needed for pump - links for how to connect her insulin pump to the Clinic's [employer] account was sent to her along with the link for the Dexcom Patient Assistance program. DIABETES CARE AND EDUCATION PLAN: Individual follow-up Time Spent (Minutes): 30 This visit note will be communicated to the healthcare provider via access to shared medical record. SIGNATURE: Jackeline Shukla RN PATIENT NAME: Kalie Desir DATE: January 07, 2024 TIME: 10:25 AM Referring Provider: CHASITY HODGE [[id number]] Allergies As of Date: 01/07/2024 Noted Allergy Reaction MELATONIN 06/07/2021 6 - Diarrhea PENICILLINS 12/31/2011 2 - Rash SULFATRIM DS 12/31/2011 11 - Vomiting Date Reviewed: 12/24/2023 Reviewed by: Bonnie Huber LPN - Fully Assessed Primary Visit Diagnosis:Type 1 diabetes mellitus without complication (HCC) [E10.9] Prescriptions as of 01/07/2024 - DEXCOM G6 SENSOR cooper as directed. - DEXCOM G6 TRANSMITTER cooper as directed. - fluticasone (FLONASE) 50 mcg/actuation nasal spray Use 2 Sprays in each nostril once daily. Rinse mouth after use. - albuterol HFA (VENTOLIN HFA) 90 mcg/actuation inhaler Inhale 2 Puffs as instructed every 4 hours as needed. - etonogestrel (NEXPLANON) subdermal implant 68 mg ONCE - Alcohol Swabs (ALCOHOL PREP PADS) padm Apply 1 application to affected area every 4 hours as needed (blood glucose check). - Inhalational Spacing Device (AEROCHAMBER MASK LARGE) spcr 1 Device as needed. Meds Comments as of 03/04/2019: OTC pain medication. Problem List As Of Date 01/07/2024 Noted Resolved Type 1 diabetes mellitus without complication (*12/31/2011 Asthma [J45.909] 12/31/2011 Chronic lymphocytic thyroiditis [E06.3] 01/11/2016 Strain of back [S39.012A] 07/29/2016 03/04/2019 Cervicalgia [M54.2] 07/29/2016 03/04/2019 Encounter Status:Closed by JACKELINE [facility]LA [facility] Tele[facility] (FAMPWS) KALIE DESIR ([id number]) 2000 F Date Time Provider Department 12/25/23 CHASITY HODGE [facility] During your visit today, we recorded the following information about you: Chasity Hodge PA-C 12/25/2023 10:15 AM Signed Patient is scheduled with Merary August RPh on 01/13. I checked with Merary and she does not manage patient with insulin pumps. This appointment needs cancelled. Kalie should keep appt with Hamlet Shukla and maria dolores. Can we check if Veronika Dorado has any sooner appointments? Thanks. MATEO Kan Deborah, LPN 12/25/2023 10:26 AM Signed Encounter routed to [facility] to check if Veronika Dorado has any sooner appointments. Appointment with Merary has been cancelled and patient has been notified of providers message. Cora Dupree 12/25/2023 11:13 AM Signed Spoke with patient and scheduled for February 03 (first available) with Sammi Dorado and also added appointment to wait list for cancellations. Chasity Hodge PA-C 12/25/2023 11:54 AM Signed Noted. Allergies As of Date: 12/25/2023 Noted Allergy Reaction MELATONIN 06/07/2021 6 - Diarrhea PENICILLINS 12/31/2011 2 - Rash SULFATRIM DS 12/31/2011 11 - Vomiting Date Reviewed: 12/24/2023 Reviewed by: Bonnie Huber LPN - Fully Assessed Prescriptions as of 12/25/2023 - DEXCOM G6 SENSOR cooper as directed. - DEXCOM G6 TRANSMITTER cooper as directed. - fluticasone (FLONASE) 50 mcg/actuation nasal spray Use 2 Sprays in each nostril once daily. Rinse mouth after use. - albuterol HFA (VENTOLIN HFA) 90 mcg/actuation inhaler Inhale 2 Puffs as instructed every 4 hours as needed. - etonogestrel (NEXPLANON) subdermal implant 68 mg ONCE - Alcohol Swabs (ALCOHOL PREP PADS) padm Apply 1 application to affected area every 4 hours as needed (blood glucose check). - Inhalational Spacing Device (AEROCHAMBER MASK LARGE) spcr 1 Device as needed. Meds Comments as of 03/04/2019: OTC pain medication. Problem List As Of Date 12/25/2023 Noted Resolved Type 1 diabetes mellitus without complication (*12/31/2011 Asthma [J45.909] 12/31/2011 Chronic lymphocytic thyroiditis [E06.3] 01/11/2016 Strain of back [S39.012A] 07/29/2016 03/04/2019 Cervicalgia [M54.2] 07/29/2016 03/04/2019 Encounter Status:Closed by CHASITY MERRITT on 12/25/23 [facility] Telephone (FAMPWS) THANGKALIE ([id number]) 2000 F Date Time Provider Department 12/25/23 CHASITY HODGE During your visit today, we recorded the following information about you: Chasity Hodge PA-C 12/25/2023 8:20 AM Signed Check with patient on why she didn't schedule the consults we discussed after she left. These are urgent consults that I need patient to schedule lencho. Also I'm still trying to get a hold of Dr. Arriaga office for further guidance. (Please try to contact Dr. Pj Arriaga office again. Patient told me she was discharged from her care due to missing just 1 appointment. But I would like to know what happened from them. Patient is running out of her insulin for her pump and she can't tell me how much insulin she takes or needs. I don't order insulin for pumps routinely. I'm hoping they can help bridge coverage of meds until she gets established with new body art technician). MATEO Kan Lori, LPN 12/25/2023 8:49 AM Signed Pt states she thought all of the referrals were made yesterday, however she didn't have any dates of when they were scheduled. Pt was transferred to scheduling to get referrals scheduled. Spoke to Mechelle at Dr Chow's office. She said pt was discharged from the practice d/t non compliance. Mechelle said pt was not taking the insulin as directed, didn't know the dosages AND had multiple no shows. Mechelle indicated pt was given a 90 day supply of insulin, a dexcom G6, transmitter AND omnipods on 11/10/23, this was sent to [facility] in [place]. Enough med AND supplies to last until she finds another provider. IAN Gordillo Rayanne, PA-C 12/25/2023 9:17 AM Signed Please call [facility] and see if they have any medications on hold for her? April Jamil LPN 12/25/2023 9:37 AM Signed Spoke with [facility]. Pharmacy states that prescription for dexcom supplies and the insulin are on hold. They state that it is possible that patient didn't pick them up due to cost but they will run it through again. 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 Please let patient know. Also, we heard back from endocrinology. she was notified of being discharged from Dr. Chow's office back in October due to chronic noncompliance. This should have been plenty of time for her to notify us and get set up with new body art technician vs waiting 2 months to see me as she is running out of insulin. During that time we could have also started the process of seeing if she qualifies for financial help to cover some of the costs of her supplies. As discussed yesterday, she needs to really start taking responsibility and ownership over her Type 1 Diabetes. She has to follow up with endocrinology from here on out. MATEO Kan Deborah, LPN 12/25/2023 10:01 AM Signed Patient notified of providers message and verbalized understanding. Patient states she will go to pharmacy now for the insulin. Allergies As of Date: 12/25/2023 Noted Allergy Reaction MELATONIN 06/07/2021 6 - Diarrhea PENICILLINS 12/31/2011 2 - Rash SULFATRIM DS 12/31/2011 11 - Vomiting Date Reviewed: 12/24/2023 Reviewed by: Bonnie Huber LPN - Fully Assessed Reason for Visit: Orders [681] Prescriptions as of 12/25/2023 - DEXCOM G6 SENSOR cooper as directed. - DEXCOM G6 TRANSMITTER cooper as directed. - fluticasone (FLONASE) 50 mcg/actuation nasal spray Use 2 Sprays in each nostril once daily. Rinse mouth after use. - albuterol HFA (VENTOLIN HFA) 90 mcg/actuation inhaler Inhale 2 Puffs as instructed every 4 hours as needed. - etonogestrel (NEXPLANON) subdermal implant 68 mg ONCE - Alcohol Swabs (ALCOHOL PREP PADS) padm Apply 1 application to affected area every 4 hours as needed (blood glucose check). - Inhalational Spacing Device (AEROCHAMBER MASK LARGE) spcr 1 Device as needed. Meds Comments as of 03/04/2019: OTC pain medication. Problem List As Of Date 12/25/2023 Noted Resolved Type 1 diabetes mellitus without complication (*12/31/2011 Asthma [J45.909] 12/31/2011 Chronic lymphocytic thyroiditis [E06.3] 01/11/2016 Strain of back [S39.012A] 07/29/2016 03/04/2019 Cervicalgia [M54.2] 07/29/2016 03/04/2019 Encounter Status:Closed by APRIL JAMIL on 12/25/23 Normal [facility] ALBUMIN/CREATININE RATIO, UR INEon 12-24-2023 Albumin DL <= 20 mg/L (U) [Mass/Vol] mg/L mg/L [facility] Albumin/Creatinine (U) [Mass ratio] [facility] Comment on above: Not calculated Adult Male and Female Nephrotic Criteria: <30 mg/g is considered normal to mildly increased 30-300 mg/g is considered moderately increased >300 mg/g is considered severely increased KDIGO. (2013). KDIGO 2012 Clinical Practice Guideline for the Evaluation and Management of Chronic Kidney Disease. Official Journal of the International Society of Nephrology, 3(1), 1-150. Creatinine (U) [Mass/Vol] 36.3 mg/dL 20.0 - 300.0 mg/dL [facility] Albumin DL <= 20 mg/L (U) [Mass/Vol] mg/dL Normal [facility] Comment on above: Order Comment: Speci men Type: URINE SPECIMENOrdering Facility: [facility] Address: [address] [place] [address] Performed By: #### U ACR ####[facility] LABCLIA [id number] [place] [address] [place] Albumin/Creatinine (U) [Mass ratio] Normal [facility] Comment on above: Order Comment: Speci men Type: URINE SPECIMENOrdering Facility: [facility] Address: [address] [place] [address] Result Comment: Not calculated Adult Male and Female Nephrotic Criteria: <30 mg/g is considered normal to mildly increased 30-300 mg/g is considered moderately increased >300 mg/g is considered severely increased KDIGO. (2013). KDIGO 2012 Clinical Practice Guideline for the Evaluation and Management of Chronic Kidney Disease. Official Journal of the International Society of Nephrology, 3(1), 1-150. Performed By: #### U ACR ####[facility] LABCLIA [id number] [address] [place] Creatinine (U) [Mass/Vol] 36.3 mg/dL Normal 20.0-300.0 [facility] Comment on above: Order Comment: Speci men Type: URINE SPECIMENOrdering Facility: [facility] Address: [address] [place] [address] Performed By: #### U ACR ####[facility] LABCLIA [id number] [address] [place] [facility] CBC W Auto Differential pane l (Bld)on 12-24-2023 Basophils (Bld) [#/Vol] 0.05 10*3/uL [facility] Basophils/100 WBC (Bld) 0.8 % [facility] Differential cell count method Nom (Bld) Auto [facility] Eosinophils (Bld) [#/Vol] 0.12 10*3/uL [facility] Eosinophils/100 WBC (Bld) 2.0 % [facility] Erythrocyte distribution width (RBC) [Ratio] 13.1 % 11.5 - 15.0 % [facility] Hematocrit (Bld) [Volume fraction] 42.5 % 36.0 - 46.0 % [facility] Hemoglobin (Bld) [Mass/Vol] 13.6 g/dL 11.5 - 15.5 g/dL [facility] Immature granulocytes (Bld) [#/Vol] NINF [facility] Immature granulocytes/100 WBC (Bld) 0.2 % [facility] Lymphocytes (Bld) [#/Vol] 1.25 10*3/uL [facility] Lymphocytes/100 WBC (Bld) 20.6 % [facility] MCH (RBC) [Entitic mass] 27.7 pg 26.0 - 34.0 pg [facility] MCHC (RBC) [Mass/Vol] 32.0 g/dL 30.5 - 36.0 g/dL [facility] MCV (RBC) [Entitic vol] 86.6 fL 80.0 - 100.0 fL [facility] Monocytes (Bld) [#/Vol] 0.29 10*3/uL [facility] Monocytes/100 WBC (Bld) 4.8 % [facility] Neutrophils (Bld) [#/Vol] 4.34 10*3/uL [facility] Neutrophils/100 WBC (Bld) 71.6 % [facility] Nucleated RBC (Bld) [#/Vol] NINF [facility] Nucleated RBC/100 WBC (Bld) [Ratio] 0.0 % /100 WBC [facility] Platelet mean volume (Bld) [Entitic vol] 9.3 fL 9.0 - 12.7 fL [facility] Platelets (Bld) [#/Vol] 384 10*3/uL [facility] RBC (Bld) [#/Vol] 4.91 10*6/uL 3.90 - 5.2 0 m/uL [facility] WBC (Bld) [#/Vol] 6.06 10*3/uL [facility] Basophils (Bld) [#/Vol] 0.05 10*3/uL Normal <0.11 [facility] Comment on above: Order Comment: Speci men Type: BLOOD SPECIMENOrdering Facility: [facility] Address: [address] [place] [address] Performed By: #### 5 7021-8 ####[facility] LABCLIA [id number] [place] [address] [place] Basophils/100 WBC (Bld) 0.8 % Normal [facility] Comment on above: Order Comment: Speci men Type: BLOOD SPECIMENOrdering Facility: [facility] Address: [address] [place] [address] Performed By: #### 5 7021-8 ####[facility] LABCLIA [id number] [place] [address] [place] Differential cell count method Nom (Bld) Auto Normal [facility] Comment on above: Order Comment: Speci men Type: BLOOD SPECIMENOrdering Facility: [facility] Address: [address] [place] [address] Performed By: #### 5 7021-8 ####[facility] LABCLIA [id number] [place] [address] [place] Eosinophils (Bld) [#/Vol] 0.12 10*3/uL Normal <0.46 [facility] Comment on above: Order Comment: Speci men Type: BLOOD SPECIMENOrdering Facility: [facility] Address: [address] [place] [address] Performed By: #### 5 7021-8 ####[facility] LABIA [id number] [place] [address] [place] Eosinophils/100 WBC (Bld) 2.0 % Normal [facility] Comment on above: Order Comment: Speci men Type: BLOOD SPECIMENOrdering Facility: [facility] Address: [address] [place] [address] Performed By: #### 5 7021-8 ####[facility] LABIA [id number] [place] [address] [place] Erythrocyte distribution width (RBC) [Ratio] 13.1 % Normal 11.5-15.0 [facility] Comment on above: Order Comment: Speci men Type: BLOOD SPECIMENOrdering Facility: [facility] Address: [address] [place] [address] Performed By: #### 5 7021-8 ####[facility] LABIA [id number] [place] [address] [place] Hematocrit (Bld) [Volume fraction] 42.5 % Normal 36.0-46.0 [facility] Comment on above: Order Comment: Speci men Type: BLOOD SPECIMENOrdering Facility: [facility] Address: [address] [place] [address] Performed By: #### 5 7021-8 ####[facility] LABCLIA [id number] [place] [address] [place] Hemoglobin (Bld) [Mass/Vol] 13.6 g/dL Normal 11.5-15.5 [facility] Comment on above: Order Comment: Speci men Type: BLOOD SPECIMENOrdering Facility: [facility] Address: [address] [place] [address] Performed By: #### 5 7021-8 ####[facility] LABCLIA [id number] [place] [address] [place] Immature granulocytes (Bld) [#/Vol] 10*3/uL Normal <0.10 [facility] Comment on above: Order Comment: Speci men Type: BLOOD SPECIMENOrdering Facility: [facility] Address: [address] [place] [address] Performed By: #### 5 7021-8 ####[facility] LABIA [id number] [place] [address] [place] Immature granulocytes/100 WBC (Bld) 0.2 % Normal [facility] Comment on above: Order Comment: Speci men Type: BLOOD SPECIMENOrdering Facility: [facility] Address: [address] [place] [address] Performed By: #### 5 7021-8 ####[facility] LABIA [id number] [place] [address] [place] Lymphocytes (Bld) [#/Vol] 1.25 10*3/uL Normal 1.00-4.00 [facility] Comment on above: Order Comment: Speci men Type: BLOOD SPECIMENOrdering Facility: [facility] Address: [address] [place] [address] Performed By: #### 5 7021-8 ####[facility] LABIA [id number] [place] [address] [place] Lymphocytes/100 WBC (Bld) 20.6 % Normal [facility] Comment on above: Order Comment: Speci men Type: BLOOD SPECIMENOrdering Facility: [facility] Address: [address] [place] [address] Performed By: #### 5 7021-8 ####[facility] LABIA [id number] [place] [address] [place] MCH (RBC) [Entitic mass] 27.7 pg Normal 26.0-34.0 [facility] Comment on above: Order Comment: Speci men Type: BLOOD SPECIMENOrdering Facility: [facility] Address: [address] [place] [address] Performed By: #### 5 7021-8 ####[facility] LABIA [id number] [place] [address] [place] MCHC (RBC) [Mass/Vol] 32.0 g/dL Normal 30.5-36.0 [facility] Comment on above: Order Comment: Speci men Type: BLOOD SPECIMENOrdering Facility: [facility] Address: [address] [place] [address] Performed By: #### 5 7021-8 ####[facility] LABIA [id number] [place] [address] [place] MCV (RBC) [Entitic vol] 86.6 fL Normal 80.0-100.0 [facility] Comment on above: Order Comment: Speci men Type: BLOOD SPECIMENOrdering Facility: [facility] Address: [address] [place] [address] Performed By: #### 5 7021-8 ####[facility] LABIA [id number] [place] [address] [place] Monocytes (Bld) [#/Vol] 0.29 10*3/uL Normal <0.87 [facility] Comment on above: Order Comment: Speci men Type: BLOOD SPECIMENOrdering Facility: [facility] Address: [address] [place] [address] Performed By: #### 5 7021-8 ####[facility] LABCLIA [id number] [place] [address] [place] Monocytes/100 WBC (Bld) 4.8 % Normal [facility] Comment on above: Order Comment: Speci men Type: BLOOD SPECIMENOrdering Facility: [facility] Address: [address] [place] [address] Performed By: #### 5 7021-8 ####[facility] LABCLIA [id number] [place] [address] [place] Neutrophils (Bld) [#/Vol] 4.34 10*3/uL Normal 1.45-7.50 [facility] Comment on above: Order Comment: Speci men Type: BLOOD SPECIMENOrdering Facility: [facility] Address: [address] [place] [address] Performed By: #### 5 7021-8 ####[facility] LABCLIA [id number] [place] [address] [place] Neutrophils/100 WBC (Bld) 71.6 % Normal [facility] Comment on above: Order Comment: Speci men Type: BLOOD SPECIMENOrdering Facility: [facility] Address: [address] [place] [address] Performed By: #### 5 7021-8 ####[facility] LABCLIA [id number] [place] [address] [place] Nucleated RBC (Bld) [#/Vol] 10*3/uL Normal <0.01 [facility] Comment on above: Order Comment: Speci men Type: BLOOD SPECIMENOrdering Facility: [facility] Address: [address] [place] [address] Performed By: #### 5 7021-8 ####[facility] LABCLIA [id number] [address] [id number] [address] [place] Nucleated RBC/100 WBC (Bld) [Ratio] 0.0 /100 WBC Normal [facility] Comment on above: Order Comment: Speci men Type: BLOOD SPECIMENOrdering Facility: [facility] Address: [address] [place] [address] Performed By: #### 5 7021-8 ####[facility] LABCLIA [id number] [place] [address] [place] Platelet mean volume (Bld) [Entitic vol] 9.3 fL Normal 9.0-12.7 [facility] Comment on above: Order Comment: Speci men Type: BLOOD SPECIMENOrdering Facility: [facility] Address: [address] [place] [address] Performed By: #### 5 7021-8 ####[facility] LABCLIA [id number] [place] [address] [place] Platelets (Bld) [#/Vol] 384 10*3/uL Normal 150-400 [facility] Comment on above: Order Comment: Speci men Type: BLOOD SPECIMENOrdering Facility: [facility] Address: [address] [place] [address] Performed By: #### 5 7021-8 ####[facility] LABCLIA [id number] [place] [address] [place] RBC (Bld) [#/Vol] 4.91 10*6/uL Normal 3.90-5.20 [facility] Comment on above: Order Comment: Speci men Type: BLOOD SPECIMENOrdering Facility: [facility] Address: [address] [place] [address] Performed By: #### 5 7021-8 ####[facility] LABCLIA [id number] [place] [address] [place] WBC (Bld) [#/Vol] 6.06 10*3/uL Normal 3.70-11.00 [facility] Comment on above: Order Comment: Speci men Type: BLOOD SPECIMENOrdering Facility: [facility] Address: [address] [place] [id number] Performed By: #### 5 7021-8 ####[facility] LABCLIA [id number] [id number] [id number] [place] CNOVon 12-24-2023 CNOV Office Visit (FAMPWS ) KALIE DESIR ([id number]) 2000 F Date Time Provider Department 12/24/23 9:40 AM CHASITY HODGE During your visit today, we recorded the following information about you: Temperature Pulse Respiration Blood pressure 97.9 degrees 89/minute 16/minute 98/59 Weight 69.4 kg Chasity Hodge PA-C 12/24/2023 12:50 PM Signed Chief Complaint Patient presents with: Hospital F/U HPI Kalie Ariasley is a 23 year old female who presents here today for Hospital Discharge Follow up.. Over the years, patient has had multiple ER visits and hospitalizations. Mostly due to DKA. Patient was last in hospital mid november. States she missed an appointment with endocrinology and was discharged from their practice. States she is now running low on her insulin. Thinks she only has 2-3 days left of her insulin. She is unsure how much she is getting per day. Has not been checking her blood sugars. Patient states cost of care has kept her from getting her scripts and supplies. States that at one point she was paying rent and groceries for her mom as well. Still lives with mom but mom now has a job so she isn't paying for as much. However still struggles with low income and insurance doesn't seem to cover much. Past medical history, appointments, medications, allergies reviewed. [...] etonogestrel (NEXPLANON) subdermal implant 68 mg ONCE Alcohol Swabs (ALCOHOL PREP PADS) padm Apply 1 application to affected area every 4 hours as needed (blood glucose check). famotidine (PEPCID) 20 mg tablet Take 20 mg by mouth twice daily. (Patient not taking: Reported on 12/24/2023) sucralfate (CARAFATE) 1 gram tablet Take 1 g by mouth three times daily. (Patient not taking: Reported on 12/24/2023) promethazine (PHENERGAN) 25 mg tablet Take 25 mg by mouth three times daily. Take one tablet three times daily as needed (Patient not taking: Reported on 12/24/2023) ondansetron orally disintegrating (ZOFRAN ODT) 4 mg disintegrating tablet Take 1 tablet by mouth every 6 hours as needed for nausea/vomiting. (Patient not taking: Reported on 10/16/2022) naproxen (NAPROSYN) 500 mg tablet Take 1 tablet by mouth twice daily as needed (for pain/inflammation). Take with food. (Patient not taking: Reported on 10/16/2022) traZODone (DESYREL) 50 mg tablet Take 1 tablet by mouth daily at bedtime. (Patient not taking: Reported on 12/31/2021 ) insulin glargine (BASAGLAR KWIKPEN U-100 INSULIN) 100 unit/mL (3 mL) Inject 45 Units subcutaneously daily at bedtime. Per Endo: Dr. Chow (Patient not taking: Reported on 12/31/2021 ) flash glucose sensor (FREESTYLE DANIELA 14 DAY SENSOR) kit apply 1 SENSOR TO THE BACK OF UPPER ARM. REMOVE AND REPLACE EVERY 14 DAYS. USE WITH DEVICE TO MONITOR BLOOD SUGAR four times a day (Patient not taking: Reported on 10/16/2022) etonogestrel (NEXPLANON) subdermal implant 68 mg 1 Each by SUBDERMAL route as directed. (Patient not taking: Reported on 07/02/2021 ) flash glucose scanning reader (FREESTYLE DANIELA 14 DAY READER) [facility] [place] For blood sugar checks 4 times a day (Patient not taking: Reported on 10/16/2022) potassium chloride ER (K-DUR, KLOR-CON) 20 mEq tablet Take 20 mEq by mouth twice daily. (Patient not taking: Reported on 12/24/2023) Insulin Rincon, Disposable, (OPAL PEN NEEDLE) 32 gauge x 5/32 ndle Use with insulin injections (Patient not taking: Reported on 12/26/2021 ) Insulin Syringe-Needle U-100 (BD ULTRAFINE INSULIN) 1 mL 31 gauge x 5/16 syrg Supply to be used as directed for insulin administration up to 3 times daily. (Patient not taking: Reported on 10/16/2022) glucagon, human recombinant, (GLUCAGON EMERGENCY KIT, HUMAN,) 1 mg injection Inject 1 (more content not included)... Normal [facility] Comprehensive metabolic 2000 panelon 12-24-2023 Albumin [Mass/Vol] 4.4 g/dL 3.9 - 4.9 g/dL [facility] ALP [Catalytic activity/Vol] 79 U/L 34 - 123 U/L [facility] ALT [Catalytic activity/Vol] 10 U/L 7 - 38 U/L [facility] Anion gap [Moles/Vol] 11 mmol/L 8 - 15 mmol/L [facility] AST [Catalytic activity/Vol] 17 U/L 13 - 35 U/L [facility] Bilirubin [Mass/Vol] 0.5 mg/dL 0.2 - 1 .3 mg/dL [facility] Calcium [Mass/Vol] 9.9 mg/dL 8.5 - 10. 2 mg/dL [facility] Chloride [Moles/Vol] 102 mmol/L 98 - 10 7 mmol/L [facility] CO2 [Moles/Vol] 23 mmol/L 22 - 30 mmol/L [facility] Creatinine [Mass/Vol] 0.54 mg/dL Low 0.58 - 0.96 mg/dL [facility] GFR/1.73 sq M.predicted among non-blacks MDRD (S/P/Bld) [Vol rate/Area] 131 mL/min/{1.73_m2} - PINF [facility] Comment on above: Estimated Glomerular Filtration Rate (eGFR) is calculated using the 2020 CKD-EPI creatinine equation. This equation utilizes serum creatinine, sex, and age as parameters. The creatinine assay has traceable calibration to isotope dilution-mass spectrometry. Refer to KDIGO guidelines for clinical interpretation. In patients with unstable renal function, e.g. those with acute kidney injury, the eGFR may not accurately reflect actual GFR. Glucose [Mass/Vol] 353 mg/dL High 74 - 99 mg/dL [facility] Comment on above: The [place] Diabete s Association (ADA) provides guidance for cutoff values for fasting glucose and random glucose. The ADA defines fasting as no caloric intake for at least 8 hours. Fasting plasma glucose results between 100 to 125 mg/dL indicate increased risk for diabetes (prediabetes). Fasting plasma glucose results greater than or equal to 126 mg/dL meet the criteria for diagnosis of diabetes. In the absence of unequivocal hyperglycemia, results should be confirmed by repeat testing. In a patient with classic symptoms of hyperglycemia or hyperglycemic crisis, random plasma glucose results greater than or equal to 200 mg/dL meet the criteria for diagnosis of diabetes. Reference: Standards of Medical Care in Diabetes 2016, [place] Diabetes Association. Diabetes Care. 2016.39(Suppl 1). Interpretation and review of laboratory results Abnormal [facility] Potassium [Moles/Vol] 4.8 mmol/L 3.7 - 5.1 mmol/L [facility] Protein [Mass/Vol] 7.1 g/dL 6.3 - 8.0 g/dL Cl [facility] Sodium [Moles/Vol] 136 mmol/L 136 - 144 mmol/L [facility] Urea nitrogen [Mass/Vol] 17 mg/dL 7 - 21 mg/dL [facility] Albumin [Mass/Vol] 4.4 g/dL Normal 3.9-4.9 [facility] Comment on above: Order Comment: Speci men Type: BLOOD SPECIMENOrdering Facility: [facility] Address: [address] [place], [place] [id number] Performed By: #### L IPNF, 75427-5 ####[facility] LABCLIA [id number] [place] [address] [place] ALP [Catalytic activity/Vol] 79 U/L Normal 34-123 [facility] Comment on above: Order Comment: Speci men Type: BLOOD SPECIMENOrdering Facility: [facility] Address: [address] [place] [address] Performed By: #### L IPNF, 08999-8 ####[facility] LABCLIA [id number] [place] [address] [place] ALT [Catalytic activity/Vol] 10 U/L Normal 7-38 [facility] Comment on above: Order Comment: Speci men Type: BLOOD SPECIMENOrdering Facility: [facility] Address: [address] [place] [address] Performed By: #### L IPNF, 01588-1 ####[facility] LABCLIA [id number] [place] [address] [place] Anion gap [Moles/Vol] 11 mmol/L Normal 8-15 [facility] Comment on above: Order Comment: Speci men Type: BLOOD SPECIMENOrdering Facility: [facility] Address: [address] [place] [address] Performed By: #### L IPNF, ####[facility] LABCLIA [id number] [place] [address] [place] AST [Catalytic activity/Vol] 17 U/L Normal 13-35 [facility] Comment on above: Order Comment: Speci men Type: BLOOD SPECIMENOrdering Facility: [facility] Address: [address] [place] [address] Performed By: #### L IPNF, ####[facility] LABCLIA [id number] [place] [address] [place] Bilirubin [Mass/Vol] 0.5 mg/dL Normal 0.2-1.3 [facility] Comment on above: Order Comment: Speci men Type: BLOOD SPECIMENOrdering Facility: [facility] Address: [address] [place] [address] Performed By: #### L IPNF, 51083-9 ####[facility] LABCLIA [id number] [place] [address] [place] Calcium [Mass/Vol] 9.9 mg/dL Normal 8.5-10.2 [facility] Comment on above: Order Comment: Speci men Type: BLOOD SPECIMENOrdering Facility: [facility] Address: [address] [place] [address] Performed By: #### L IPNF, 96879-1 ####[facility] LABCLIA [id number] [place] [address] [place] Chloride [Moles/Vol] 102 mmol/L Normal 98-107 [facility] Comment on above: Order Comment: Speci men Type: BLOOD SPECIMENOrdering Facility: [facility] Address: [address] [place] [address] Performed By: #### L IPNF, 28877-6 ####[facility] LABCLIA [id number] [place] [address] [place] CO2 [Moles/Vol] 23 mmol/L Normal 22-30 [facility] Comment on above: Order Comment: Speci men Type: BLOOD SPECIMENOrdering Facility: [facility] Address: [address] [place] [address] Performed By: #### L IPNF, 80528-1 ####[facility] LABCLIA [id number] [place] [address] [place] Creatinine [Mass/Vol] 0.54 mg/dL Low 0.58-0.96 [facility] Comment on above: Order Comment: Carol escalera Type: BLOOD SPECIMENOrdering Facility: [facility] Address: [address] [place] [address] Performed By: #### L IPNF, 84967-7 ####[facility] LABCLIA [id number] [place] [address] [place] Creatinine and Glomerular filtration rate.predicted panel (S/P/Bld) 131 mL/min/1.73m??? Normal >=60 [facility] Comment on above: Order Comment: Carol escalera Type: BLOOD SPECIMENOrdering Facility: [facility] Address: [address] [place] [address] Result Comment: Lisa mated Glomerular Filtration Rate (eGFR) is calculated using the 2020 CKD-EPI creatinine equation. This equation utilizes serum creatinine, sex, and age as parameters. The creatinine assay has traceable calibration to isotope dilution-mass spectrometry. Refer to KDIGO guidelines for clinical interpretation. In patients with unstable renal function, e.g. those with acute kidney injury, the eGFR may not accurately reflect actual GFR. Performed By: #### L IPNF, 80464-8 ####[facility] LABCLIA [id number] [place] [address] [place] Glucose [Mass/Vol] 353 mg/dL High 74-99 [facility] Comment on above: Order Comment: Carol escalera Type: BLOOD SPECIMENOrdering Facility: [facility] Address: [address] [place] [address] Result Comment: The [place] Diabetes Association (ADA) provides guidance for cutoff values for fasting glucose and random glucose. The ADA defines fasting as no caloric intake for at least 8 hours. Fasting plasma glucose results between 100 to 125 mg/dL indicate increased risk for diabetes (prediabetes). Fasting plasma glucose results greater than or equal to 126 mg/dL meet the criteria for diagnosis of diabetes. In the absence of unequivocal hyperglycemia, results should be confirmed by repeat testing. In a patient with classic symptoms of hyperglycemia or hyperglycemic crisis, random plasma glucose results greater than or equal to 200 mg/dL meet the criteria for diagnosis of diabetes. Reference: Standards of Medical Care in Diabetes 2016, [place] Diabetes Association. Diabetes Care. 2016.39(Suppl 1). Performed By: #### L IPNF, 29470-0 ####[facility] LABCLIA [id number] [place] [address] [place] Potassium [Moles/Vol] 4.8 mmol/L Normal 3.7-5.1 [facility] Comment on above: Order Comment: Speci men Type: BLOOD SPECIMENOrdering Facility: [facility] Address: [address] [place] [address] Performed By: #### L IPNF, 23524-8 ####[facility] LABCLIA [id number] [place] [address] [place] Protein [Mass/Vol] 7.1 g/dL Normal 6.3-8.0 [facility] Comment on above: Order Comment: Speci men Type: BLOOD SPECIMENOrdering Facility: [facility] Address: [address] [place] [address] Performed By: #### L IPNF, 19465-2 ####[facility] LABCLIA [id number] [place] [address] [place] Sodium [Moles/Vol] 136 mmol/L Normal 136-144 [facility] Comment on above: Order Comment: Speci men Type: BLOOD SPECIMENOrdering Facility: [facility] Address: [address] [place] [address] Performed By: #### L IPNF, 73456-4 ####[facility] LABCLIA [id number] [place] [address] [place] Urea nitrogen [Mass/Vol] 17 mg/dL Normal 7-21 [facility] Comment on above: Order Comment: Speci men Type: BLOOD SPECIMENOrdering Facility: [facility] Address: [address] [place] [address] Performed By: #### L IPNF, 28835-3 ####[facility] LABCLIA [id number] [place] [address] [place] HbA1c (Bld)on 12-24-2023 Average glucose Estimated from glycated hemoglobin (Bld) [Mass/Vol] 243 mg/dL [facility] Comment on above: eAG: (Estimated aver age glucose) is a calculated value from HgbA1c and is medical field representative of the average blood glucose level in the last 2-3 month period. HbA1c (Bld) [Mass fraction] 10.1 % High 4.3 - 5.6 % [facility] Comment on above: [place] Diabetes As sociation guidelines indicate that patients with HgbA1c in the range 5.7-6.4% are at increased risk for development of diabetes, and intervention by lifestyle modification may be beneficial. HgbA1c greater or equal to 6.5% is considered diagnostic of diabetes. Interpretation and review of laboratory results Abnormal [facility] Average glucose Estimated from glycated hemoglobin (Bld) [Mass/Vol] 243 mg/dL Normal [facility] Comment on above: Order Comment: Carol escalera Type: BLOOD SPECIMENOrdering Facility: [facility] Address: [address] [place] [address] Result Comment: eAG: (Estimated average glucose) is a calculated value from HgbA1c and is medical field representative of the average blood glucose level in the last 2-3 month period. Performed By: #### 5 5454-3 ####[facility] LABCLIA [id number] [place] [address] [place] HbA1c (Bld) [Mass fraction] 10.1 % High 4.3-5.6 [facility] Comment on above: Order Comment: Carol escalera Type: BLOOD SPECIMENOrdering Facility: [facility] Address: [address] [place] [address] Result Comment: Amer [place] Diabetes Association guidelines indicate that patients with HgbA1c in the range 5.7-6.4% are at increased risk for development of diabetes, and intervention by lifestyle modification may be beneficial. HgbA1c greater or equal to 6.5% is considered diagnostic of diabetes. Performed By: #### 5 5454-3 ####[facility] LABCLIA [id number] [address] [address] [place] LIPID PANEL, NONFASTINGon Cholesterol [Mass/Vol] 175 mg/dL NINF - 200 mg/dL [facility] Comment on above: <200 mg/dL, Desirabl e 200-239 mg/dL, Borderline high >239 mg/dL, High HDL Cholesterol, Nonfasting 81 mg/dL 39 - PINF mg/dL [facility] Comment on above: 40-59 mg/dL, Accepta ble >59 mg/dL, High: Negative risk factor for coronary heart disease <40 mg/dL, Low: Positive risk factor for coronary heart disease Interpretation and review of laboratory results Normal [facility] LDL Cholesterol, Nonfasting 81 mg/dL NINF - 100 mg/dL [facility] Comment on above: <100 mg/dL, Optimal 100-129 mg/dL, Near optimal/above optimal 130-159 mg/dL, Borderline high 160-189 mg/dL, High >189 mg/dL, Very high Secondary prevention optimal LDL Cholesterol levels are recommended to be < 70 mg/dL LDL/HDL Ratio, Nonfasting 1.00 mg/dL NINF - 2.54 mg/dL [facility] Comment on above: Reference: 1. National Cholesterol Education Program ATP III Guideline At-A-Glance Quick Desk Reference: National Heart, Lung, and Blood [place]. National Institutes of Health. 2001: NIH Publication No. 01-3305. 2. An International Atherosclerosis Society position paper: global recommendations for the management of dyslipidemia: executive summary, Atherosclerosis. 2014: 232(2):410-413. Non HDL Cholesterol, Nonfasting 94 mg/dL NINF - 130 mg/dL [facility] Comment on above: <130 mg/dL, Optimal 130-159 mg/dL, Near optimal/above optimal 160-189 mg/dL, Borderline high 190-219 mg/dL, High >219 mg/dL, Very high Secondary prevention optimal non HDL Cholesterol levels are recommended to be <100 mg/dL Total Chol/HDL Ratio, Nonfasting 2.16 mg/dL NINF - 5.10 mg/dL [facility] Triglycerides, Nonfasting 67 mg/dL NINF - 150 mg/dL [facility] Comment on above: <150 mg/dL, Normal 150-199 mg/dL, Borderline high 200-499 mg/dL, High >499 mg/dL, Very high VLDL Cholesterol, Nonfasting 13 mg/dL NINF - 30 mg/dL [facility] Cholesterol [Mass/Vol] 175 mg/dL Normal <200 [facility] Comment on above: Order Comment: Speci men Type: BLOOD SPECIMENOrdering Facility: [facility] Address: [address] [place] [address] Result Comment: <200 mg/dL, Desirable 200-239 mg/dL, Borderline high >239 mg/dL, High Performed By: #### L IPNF, 64628-4 ####[facility] LABCLIA [id number] [place] [address] [place] HDL CHOLESTEROL, NF 81 mg/dL Normal >39 [facility] Comment on above: Order Comment: Speci men Type: BLOOD SPECIMENOrdering Facility: [facility] Address: [address] [place] [address] Result Comment: 40-5 9 mg/dL, Acceptable >59 mg/dL, High: Negative risk factor for coronary heart disease <40 mg/dL, Low: Positive risk factor for coronary heart disease Performed By: #### L IPJEAN, ####[facility] LABCLIA [id number] [place] [address] [place] LDL CHOLESTEROL, NF 81 mg/dL Normal <100 [facility] Comment on above: Order Comment: Speci men Type: BLOOD SPECIMENOrdering Facility: [facility] Address: [address] [place] [address] Result Comment: <100 mg/dL, Optimal 100-129 mg/dL, Near optimal/above optimal 130-159 mg/dL, Borderline high 160-189 mg/dL, High >189 mg/dL, Very high Secondary prevention optimal LDL Cholesterol levels are recommended to be < 70 mg/dL Performed By: #### L IPNF, 14094-3 ####[facility] LABCLIA [id number] [place] [address] [place] LDL/HDL RATIO, NF 1.00 mg/dL Normal <2.54 [facility] Comment on above: Order Comment: Bogdani men Type: BLOOD SPECIMENOrdering Facility: [facility] Address: [address] [place] [address] Result Comment: Michelle hankins: 1. National Cholesterol Education Program ATP III Guideline At-A-Glance Quick Desk Reference: National Heart, Lung, and Blood [place]. National Institutes of Health. 2001: NIH Publication No. 01-3305. 2. An International Atherosclerosis Society position paper: global recommendations for the management of dyslipidemia: executive summary, Atherosclerosis. 2014: 232(2):410-413. Performed By: #### L IPNF, ####[facility] LABCLIA [id number] [place] [address] [place] NON HDL CHOL, NF 94 mg/dL Normal <130 [facility] Comment on above: Order Comment: Carol escalera Type: BLOOD SPECIMENOrdering Facility: [facility] Address: [address] [place] [address] Result Comment: <130 mg/dL, Optimal 130-159 mg/dL, Near optimal/above optimal 160-189 mg/dL, Borderline high 190-219 mg/dL, High >219 mg/dL, Very high Secondary prevention optimal non HDL Cholesterol levels are recommended to be <100 mg/dL Performed By: #### L IPNF, ####[facility] LABCLIA [id number] [place] [address] [place] T CHOL/HDL RATIO NF 2.16 mg/dL Normal <5.10 [facility] Comment on above: Order Comment: Bogdani men Type: BLOOD SPECIMENOrdering Facility: [facility] Address: [address] [place] [address] Performed By: #### L IPNF, ####[facility] LABCLIA [id number] [place] [address] [place] TRIGLYCERIDES, NF 67 mg/dL Normal <150 [facility] Comment on above: Order Comment: Bogdani men Type: BLOOD SPECIMENOrdering Facility: [facility] Address: [address] [place] [address] Result Comment: <150 mg/dL, Normal 150-199 mg/dL, Borderline high 200-499 mg/dL, High >499 mg/dL, Very high Performed By: #### L RAMIRO, 83970-2 ####[facility] LABCLIA [id number] [place] [address] [place] VLDL CHOLESTEROL, NF 13 mg/dL Normal <30 [facility] Comment on above: Order Comment: Speci men Type: BLOOD SPECIMENOrdering Facility: [facility] Address: [address] [place] [address] Performed By: #### L IPJEAN, 63691-9 ####[facility] LABCLIA [id number] [address] [place] No Panel Informationon 12-23 [facility] Urinalysis complete panel (U )on 12-24-2023 Bacteria LM.HPF (Urine sed) [#/Area] Negative Negative /HPF [facility] Bilirubin Ql (U) Negative Negative [facility] Clarity (Unsp spec) Clear Clear [facility] Color (U) Yellow Yellow [facility] Epithelial cells LM.HPF (Urine sed) [#/Area] None Seen /HPF [facility] Glucose Test strip (U) [Mass/Vol] 3+ Abnormal Negative [facility] Hemoglobin Ql (U) Negative Negative [facility] Hyaline casts (Urine sed) [#/Area] 0 /[LPF] 0 /LPF [facility] Interpretation and review of laboratory results Abnormal [facility] Ketones Ql (U) Negative Negative [facility] Leukocyte esterase Test strip Ql (U) Negative Negative [facility] Nitrite Ql (U) Negative Negative [facility] pH (U) 6.0 [pH] NINF - 8.5 [facility] Protein (U) [Mass/Vol] Negative Negative [facility] RBC LM.HPF (Urine sed) [#/Area] 0-2 /HPF 0-2 /HPF [facility] Specific gravity (U) [Rel density] 1.032 High 1.005 - 1.030 [facility] Urobilinogen Ql (U) 0.2 EU/dL 0.2-1.0 EU/dL [facility] WBC LM.HPF (Urine sed) [#/Area] 0-5 /HPF 0-5 /HPF [facility] This test was developed and its performance characteristics determined by [facility]'s [facility] Pathology and Laboratory Medicine [place] ([facility]). It has not been cleared or approved by the FDA. -[facility] is regulated under CLIA as qualified to perform high-complexity testing. This test is used for clinical purposes. It should not be regarded as investigational or for research. [facility] Bacteria LM.HPF (Urine sed) [#/Area] Negative Normal Negative [facility] Comment on above: Order Comment: Speci men Type: URINE SPECIMENOrdering Facility: [facility] Address: [address] [place] [address] Performed By: #### 2 4356-8 ####[facility] LABCLIA [id number] [place] [address] [place] Bilirubin Ql (U) Negative Normal Negative [facility] Comment on above: Order Comment: Speci men Type: URINE SPECIMENOrdering Facility: [facility] Address: [address] [place] [address] Performed By: #### 2 4356-8 ####[facility] LABCLIA [id number] [place] [address] [place] Clarity (Unsp spec) Clear Normal Clear [facility] Comment on above: Order Comment: Speci men Type: URINE SPECIMENOrdering Facility: [facility] Address: [address] [place] [address] Performed By: #### 2 4356-8 ####[facility] LABCLIA [id number] [place] [address] [place] Color (U) Yellow Normal Yellow [facility] Comment on above: Order Comment: Speci men Type: URINE SPECIMENOrdering Facility: [facility] Address: [address] [place] [address] Performed By: #### 2 4356-8 ####[facility] LABCLIA [id number] [place] [address] [place] Epithelial cells LM.HPF (Urine sed) [#/Area] None Seen Normal [facility] Comment on above: Order Comment: Speci men Type: URINE SPECIMENOrdering Facility: [facility] Address: [address] [place] [address] Performed By: #### 2 4356-8 ####[facility] LABCLIA [id number] [place] [address] [place] Glucose Test strip (U) [Mass/Vol] 3+ Abnormal Negative [facility] Comment on above: Order Comment: Speci men Type: URINE SPECIMENOrdering Facility: [facility] Address: [address] [place] [address] Performed By: #### 2 4356-8 ####[facility] LABCLIA [id number] [place] [address] [place] Hemoglobin Ql (U) Negative Normal Negative [facility] Comment on above: Order Comment: Speci men Type: URINE SPECIMENOrdering Facility: [facility] Address: [address] [place] [address] Performed By: #### 2 4356-8 ####[facility] LABCLIA [id number] [place] [address] [place] Hyaline casts (Urine sed) [#/Area] 0 /[LPF] Normal 0 /LPF [facility] Comment on above: Order Comment: Speci men Type: URINE SPECIMENOrdering Facility: [facility] Address: [address] [place] [address] Performed By: #### 2 4356-8 ####[facility] LABCLIA [id number] [place] [address] [place] Ketones Ql (U) Negative Normal Negative [facility] Comment on above: Order Comment: Speci men Type: URINE SPECIMENOrdering Facility: [facility] Address: [address] [place] [address] Performed By: #### 2 4356-8 ####[facility] LABCLIA [id number] [place] [address] [place] Leukocyte esterase Test strip Ql (U) Negative Normal Negative [facility] Comment on above: Order Comment: Speci men Type: URINE SPECIMENOrdering Facility: [facility] Address: [address] [place] [address] Performed By: #### 2 4356-8 ####[facility] LABCLIA [id number] [place] [address] [place] Nitrite Ql (U) Negative Normal Negative [facility] Comment on above: Order Comment: Speci men Type: URINE SPECIMENOrdering Facility: [facility] Address: [address] [place] [address] Performed By: #### 2 4356-8 ####[facility] LABCLIA [id number] [place] [address] [place] pH (U) 6.0 [pH] Normal <8.5 [facility] Comment on above: Order Comment: Speci men Type: URINE SPECIMENOrdering Facility: [facility] Address: [address] [place] [address] Performed By: #### 2 4356-8 ####[facility] LABCLIA [id number] [place] [address] [place] Protein (U) [Mass/Vol] Negative Normal Negative [facility] Comment on above: Order Comment: Speci men Type: URINE SPECIMENOrdering Facility: [facility] Address: [address] [place] [address] Performed By: #### 2 4356-8 ####[facility] LABCLIA [id number] [place] [address] [place] RBC LM.HPF (Urine sed) [#/Area] 0-2 /HPF Normal 0-2 /HPF [facility] Comment on above: Order Comment: Speci men Type: URINE SPECIMENOrdering Facility: [facility] Address: [address] [place] [address] Performed By: #### 2 4356-8 ####[facility] LABIA [id number] [place] [address] [place] Specific gravity (U) [Rel density] 1.032 High 1.005-1.030 [facility] Comment on above: Order Comment: Speci men Type: URINE SPECIMENOrdering Facility: [facility] Address: [address] [place] [address] Performed By: #### 2 4356-8 ####[facility] LABIA [id number] [place] [address] [place] Urobilinogen Ql (U) 0.2 EU/dL Normal 0.2-1.0 EU/dL [facility] Comment on above: Order Comment: Speci men Type: URINE SPECIMENOrdering Facility: [facility] Address: [address] [place] [address] Performed By: #### 2 4356-8 ####[facility] LABIA [id number] [place] [address] [place] WBC LM.HPF (Urine sed) [#/Area] 0-5 /HPF Normal 0-5 /HPF [facility] Comment on above: Order Comment: Speci men Type: URINE SPECIMENOrdering Facility: [facility] Address: [address] [place] [address] Performed By: #### 2 4356-8 ####[facility] LABIA [id number] [place] [address] [place] Basophil percentageOrdered B y: Damien Villagran on 11-28-2023 Chloride [Moles/Vol] 103 mmol/L 98-107 [facility] Glucose [Mass/Vol] 250 mg/dL 74-106 [facility] Comment on above: Glucose result great er than or equal to 200 mg/dLsuggests DIABETES MELLITUS per A.D.A. criteria. Potassium [Moles/Vol] 3.0 mmol/L 3.5-5.1 [facility] Sodium [Moles/Vol] 136 mmol/L 136-145 [facility] Laboratory - Chemistry and C hemistry - challengeOrdered By: Damien Villagran on 11-28-2023 CO2 [Moles/Vol] 19.0 mmol/L 21.0-32.0 [facility] Urea nitrogen/Creatinine [Mass ratio] 6.4 mg/mg 10 [facility] No Panel InformationOrdered By: Damien Villagran on 11-28-2023 Estimated Creatinine Clearance Calc 116.01 ml/min [facility] Estimated GFR (MDRD) Amer 150 mL/min >60 [facility] Comment on above: GFR Calc Estimated GFR (MDRD) Non-Af Amer 124 mL/min >60 [facility] Comment on above: Non- GFR Calc Serum or plasma acetone edward urement (mass/volume)Ordered By: Jackeline Aguilar on 11-28-2023 Acetone [Mass/Vol] SMALL NEG [facility] Serum or plasma calcium edward urement (mass/volume)Ordered By: Damien Villagran on 11-28-2023 Calcium [Mass/Vol] 8.7 mg/dL 8.5-10.1 [facility] Serum or plasma creatinine m easurement (mass/volume)Ordered By: Damien Villagran on 11-28-2023 Creatinine [Mass/Vol] 0.62 mg/dL 0.55-1.02 [facility] Comment on above: The validity of the calculated GFR & GFRAA in patients over 70 years has not been determined. Clinical correlation is essential. Serum or plasma urea nitroge n measurement (mass/volume)Ordered By: Damien Villagran on 11-28-2023 Urea nitrogen [Mass/Vol] 4 mg/dL 7-18 [facility] Thin prep Papanicolaou smear with manual screeningOrdered By: Damien Villagran on 11-28-2023 Thin prep Papanicolaou smear with manual screening 216 mg/dL 74-106 [facility] Comment on above: MANAGEMENT OF PATIEN T CARE PER NURSING PROTOCOL Thin prep Papanicolaou smear with manual screening 14 5-15 [facility] Absolute lymphocyte countOrd ered By: Damien Villagran on 11-27-2023 Lymphocytes Auto (Unsp spec) [#/Vol] 1.90 10*3/uL 0.83-4.51 [facility] Automated lymphocyte count a s percentage of total leukocytesOrdered By: Damien Villagran on 11-27-2023 Lymphocytes/100 WBC Auto (Unsp spec) 9.7 % 19-41 [facility] Basophil percentageOrdered B y: Damien Villagran on 11-27-2023 Basophils/100 WBC (Bld) 0.1 % 0-1 [facility] Eosinophils/100 WBC (Bld) 0.0 % 0-5 [facility] Hemoglobin (Bld) [Mass/Vol] 13.4 g/dL 12.0-15.0 [facility] Monocytes/100 WBC (Bld) 4.0 % 0-10 [facility] Neutrophils (Bld) [#/Vol] 16.7 10*3/uL 2.0-7.7 [facility] Neutrophils/100 WBC (Bld) 85.7 % 47-70 [facility] WBC (Bld) [#/Vol] 19.5 10*3/uL 4.4-11.0 [facility] Determination of erythrocyte mean corpuscular volume (MCV)Ordered By: Damien Villagran on 11-27-2023 MCV (RBC) [Entitic vol] 87.1 fL 81-99 [facility] Erythrocyte distribution wid th ratioOrdered By: Damien Villagran on 11-27-2023 Erythrocyte distribution width (RBC) [Ratio] 13.5 % 11.6-14.6 [facility] Erythrocyte distribution wid th standard deviationOrdered By: Damien Villagran on 11-27-2023 Erythrocyte distribution width (RBC) [Entitic vol] 42.5 fL 35.1-43.9 [facility] Hematocrit Auto (Bld) [Volum e fraction]Ordered By: Damien Villagran on 11-27-2023 Hematocrit (Bld) [Volume fraction] 42.6 % 37-47 [facility] Immature granulocytes/100 WB C Auto (Bld)Ordered By: Damien Villagran on 11-27-2023 Immature granulocytes/100 WBC (Bld) 0.500 % 0.0-0.9 [facility] Comment on above: IG% - Immature Granu locytes (promyelocytes, myelocytes and metamyelocytes) > 1% indicates that a LEFT SHIFT is Present. Laboratory - Hematology and Cell countsOrdered By: Damien Villagran on 11-27-2023 MCH (RBC) [Entitic mass] 27.4 pg 27.0-32.0 [facility] MCHC (RBC) [Mass/Vol] 31.5 g/dL 32-36 [facility] Nucleated RBC/100 WBC (Bld) [Ratio] 0 % 0-5 [facility] Platelet mean volume (Bld) [Entitic vol] 9.0 fL 6.2-12.0 [facility] Platelets (Bld) [#/Vol] 386 10*3/uL 150-450 [facility] RBC Auto (Bld) [#/Vol]Ordere d By: Damien Villagran on 11-27-2023 RBC (Bld) [#/Vol] 4.89 10*6/uL 4.2-5.4 [facility] Absolute lymphocyte countOrd ered By: Sunil Mina on 11-26-2023 Lymphocytes Auto (Unsp spec) [#/Vol] 0.84 10*3/uL 0.83-4.51 [facility] Automated lymphocyte count a s percentage of total leukocytesOrdered By: Sunil Mina on 11-26-2023 Lymphocytes/100 WBC Auto (Unsp spec) 3.4 % 19-41 [facility] Base excessOrdered By: Robin Mina on 11-26-2023 Base excess Calc (BldV) [Moles/Vol] -22 mmol/L -1.0-3.5 [facility] Basophil percentageOrdered B y: Sunil Mina on 11-26-2023 Chloride [Moles/Vol] 111 mmol/L 98-107 [facility] Glucose [Mass/Vol] 228 mg/dL 74-106 [facility] Comment on above: Glucose result great er than or equal to 200 mg/dLsuggests DIABETES MELLITUS per A.D.A. criteria. Potassium [Moles/Vol] 3.7 mmol/L 3.5-5.1 [facility] Sodium [Moles/Vol] 139 mmol/L 136-145 [facility] Basophil percentage 0 SEEN /hpf 0-5 [facility] Basophils/100 WBC (Bld) 0.3 % 0-1 [facility] Bilirubin [Mass/Vol] 0.70 mg/dL 0.20-1.00 [facility] Comment on above: For patients on eltr ombopag therapy, use of [facility] TBIL is not recommended. Eosinophils/100 WBC (Bld) 0.0 % 0-5 [facility] Hemoglobin (Bld) [Mass/Vol] 15.7 g/dL 12.0-15.0 [facility] Monocytes/100 WBC (Bld) 2.4 % 0-10 [facility] Neutrophils (Bld) [#/Vol] 22.5 10*3/uL 2.0-7.7 [facility] Neutrophils/100 WBC (Bld) 91.9 % 47-70 [facility] Protein [Mass/Vol] 8.6 g/dL 6.4-8.2 [facility] WBC (Bld) [#/Vol] 24.5 10*3/uL 4.4-11.0 [facility] Bilirubin Test strip Ql (U)O rdered By: Sunil Mina on 11-26-2023 Bilirubin Ql (U) Negative Negative [facility] Blood manual differential co mment interpretation (narrative result)Ordered By: Sunil Mina on 11-26-2023 Manual differential comment Heath (Bld) [Interp] SCANNED [facility] Comment on above: NEUTROPHILLIA PRESEN T CO2 (BldV) [Moles/Vol]Ordere d By: Sunil Mina on 11-26-2023 CO2 [Moles/Vol] 8 mmol/L 23-33 [facility] Determination of erythrocyte mean corpuscular volume (MCV)Ordered By: Sunil Mina on 11-26-2023 MCV (RBC) [Entitic vol] 86.7 fL 81-99 [facility] Direct bilirubinOrdered By: Sunil Mina on 11-26-2023 Bilirubin.direct [Mass/Vol] 0.17 mg/dL 0.00-0.30 [facility] Erythrocyte distribution wid th ratioOrdered By: Sunil Mina on 11-26-2023 Erythrocyte distribution width (RBC) [Ratio] 13.1 % 11.6-14.6 [facility] Erythrocyte distribution wid th standard deviationOrdered By: Sunil Mina on 11-26-2023 Erythrocyte distribution width (RBC) [Entitic vol] 41.1 fL 35.1-43.9 [facility] Hematocrit Auto (Bld) [Volum e fraction]Ordered By: Sunil Mina on 11-26-2023 Hematocrit (Bld) [Volume fraction] 48.7 % 37-47 [facility] Immature granulocytes/100 WB C Auto (Bld)Ordered By: Sunil Mina on 11-26-2023 Immature granulocytes/100 WBC (Bld) 2.000 % 0.0-0.9 [facility] Comment on above: IG% - Immature Granu locytes (promyelocytes, myelocytes and metamyelocytes) > 1% indicates that a LEFT SHIFT is Present. Ketones Test strip Ql (U)Ord ered By: Sunil Mina on 11-26-2023 Ketones Ql (U) 150 mg/dl Negative [facility] Comment on above: CRITICAL VALUE *HCRI TICAL VALUE VERIFIED. CALLED TO [id number]/08/24 0131 Jonnathan García.RESULTS READ BACK BY same. Laboratory - Chemistry and C hemistry - challengeOrdered By: Jackeline Aguilar on 11-26-2023 HCG ( test) Ql (U) Negative [facility] Comment on above: Very dilute urine sp ecimens, as indicated by a low specificgravity, may not contain medical field representative levels of hCG. If is still suspected, a first morning urinespecimen should be collected 48 hours later and tested. Magnesium [Mass/Vol] 1.9 mg/dL 1.6-2.6 [facility] Laboratory - Chemistry and C hemistry - challengeOrdered By: Sunil Mina on 11-26-2023 CO2 [Moles/Vol] 11.0 mmol/L 21.0-32.0 [facility] Urea nitrogen/Creatinine [Mass ratio] 19.0 mg/mg 10-20 [facility] HCG ( test) Ql (U) Negative [facility] Comment on above: Very dilute urine sp ecimens, as indicated by a low specificgravity, may not contain medical field representative levels of hCG. If is still suspected, a first morning urinespecimen should be collected 48 hours later and tested. HCO3 (Bld) [Moles/Vol] 7 mmol/L 22-26 [facility] ALP [Catalytic activity/Vol] 116 U/L 45-117 [facility] ALT [Catalytic activity/Vol] 18 U/L 13-56 [facility] Globulin (S) [Mass/Vol] 3.8 g/dL 2.2-4.2 [facility] Lipase [Catalytic activity/Vol] 13 U/L 13-75 [facility] Comment on above: Please note:LIPASE r evised reference range effective 22. New Lipase methodology. Expected to produce lower values than the previous assay method. NEW Reference Range: 13 - 75 U/L Laboratory - Hematology and Cell countsOrdered By: Sunil Mina on 11-26-2023 MCH (RBC) [Entitic mass] 27.9 pg 27.0-32.0 [facility] MCHC (RBC) [Mass/Vol] 32.2 g/dL 32-36 [facility] Nucleated RBC/100 WBC (Bld) [Ratio] 0 % 0-5 [facility] Platelet mean volume (Bld) [Entitic vol] 9.4 fL 6.2-12.0 [facility] Platelets (Bld) [#/Vol] 444 10*3/uL 150-450 [facility] Mucus LM Ql (Urine sed)Order ed By: Sunil Mina on 11-26-2023 Mucus Ql (Urine sed) 0 SEEN /hpf [facility] Nitrite Test strip Ql (U)Ord ered By: Sunil Mina on 11-26-2023 Nitrite Ql (U) Negative Negative [facility] No Panel InformationOrdered By: Sunil Mina on 11-26-2023 Estimated Creatinine Clearance Calc 69.32 ml/min [facility] Estimated GFR (MDRD) Amer 82 mL/min >60 [facility] Comment on above: GFR Calc Estimated GFR (MDRD) Non-Af Amer 68 mL/min >60 [facility] Comment on above: Non- GFR Calc Urine RBC 0 SEEN /hpf 0-5 [facility] Bld Gas Crit Called To/Read Back By Yes [facility] Blood Gas Notified Time 01:02:40 [facility] Blood Gas Notified Whom Dr. Mina [facility] Blood Gas Sample Site Not entered [facility] Blood Gas Specimen Type LUIS [facility] Oxygen Delivery Device Room Air [facility] Atypical Lymphocytes 1+ % [facility] PCO2 venousOrdered By: Robin Mina on 11-26-2023 CO2 (BldV) [Partial pressure] 19.1 mm[Hg] 41-51 [facility] PO2 venousOrdered By: Sunil Mina on 11-26-2023 Oxygen (BldV) [Partial pressure] 102 mm[Hg] 25-40 [facility] Protein Test strip Ql (U)Ord ered By: Sunil Mina on 11-26-2023 Protein Ql (U) 100 mg/dl Negative [facility] RBC Auto (Bld) [#/Vol]Ordere d By: Sunil Mina on 11-26-2023 RBC (Bld) [#/Vol] 5.62 10*6/uL 4.2-5.4 [facility] Serum or plasma acetone edward urement (mass/volume)Ordered By: Sunil Mina on 11-26-2023 Acetone [Mass/Vol] MODERATE NEG [facility] Comment on above: CRITICAL VALUE VERIF IED. CALLED TO [id number]/08/24 0123 Jonnathan García.RESULTS READ BACK BY SAME. Serum or plasma calcium edward urement (mass/volume)Ordered By: Sunil Mina on 11-26-2023 Calcium [Mass/Vol] 9.4 mg/dL 8.5-10.1 [facility] Serum or plasma creatinine m easurement (mass/volume)Ordered By: Sunil Mina on 11-26-2023 Creatinine [Mass/Vol] 1.05 mg/dL 0.55-1.02 [facility] Comment on above: The validity of the calculated GFR & GFRAA in patients over 70 years has not been determined. Clinical correlation is essential. Serum or plasma urea nitroge n measurement (mass/volume)Ordered By: Sunil Mina on 11-26-2023 Urea nitrogen [Mass/Vol] 20 mg/dL 7-18 [facility] Squamous epithelial cells de tection in urine sediment by light microscopyOrdered By: Sunil Mina on 11-26-2023 Epithelial cells.squamous LM Ql (Urine sed) 0 SEEN /hpf 5-10 [facility] Streptococcus pyogenes rRNA detection in throat by DNA probeOrdered By: Sunil Mina on 11-26-2023 S. pyogenes rRNA Probe Ql (Throat) [facility] Thin prep Papanicolaou smear with manual screeningOrdered By: Sunil Mina on 11-26-2023 Thin prep Papanicolaou smear with manual screening 187 mg/dL 74-106 [facility] Comment on above: MANAGEMENT OF PATIEN T CARE PER NURSING PROTOCOL Thin prep Papanicolaou smear with manual screening 17 5-15 [facility] Thin prep Papanicolaou smear with manual screening 4.8 g/dL 3.2-5.0 [facility] Thin prep Papanicolaou smear with manual screening 17 U/L 15-37 [facility] Urine blood detectionOrdered By: Sunil Mina on 11-26-2023 RBC Ql (U) 10 /ul Negative [facility] Urine clarityOrdered By: Kodi Mina on 11-26-2023 Clarity (U) Clear Clear [facility] Urine color determinationOrd ered By: Sunil Mina on 11-26-2023 Color (U) Yellow Yellow [facility] Urine glucose detectionOrder ed By: Sunil Mina on 11-26-2023 Glucose Ql (U) 1000 mg/dl Normal [facility] Urine leukocyte esterase det ection by dipstickOrdered By: Sunil Mina on 11-26-2023 Leukocyte esterase Test strip Ql (U) Negative Negative [facility] Urine pHOrdered By: Sunil thomas on 11-26-2023 pH (U) 5.0 [pH] 5.0 - 8.0 [facility] Urine sediment bacteria coun t by microscopy (number/high power field)Ordered By: Sunil Mina on 11-26-2023 Bacteria LM.HPF (Urine sed) [#/Area] 0 /[HPF] None Seen [facility] Urine specific gravity measu rementOrdered By: Sunil Mina on 11-26-2023 Specific gravity (U) [Rel density] 1.025 1.002-1.030 [facility] Urine urobilinogen measureme ntOrdered By: Sunil Mina on 11-26-2023 Urobilinogen Ql (U) Normal mg/dl Normal [facility] Venous blood pH measurementO rdered By: Sunil Mina on 11-26-2023 pH (BldV) 7.17 [pH] 7.32-7.42 [facility] Vital signsOrdered By: Robin Mina on 11-26-2023 Oxygen saturation in Blood 96 % 50-70 [facility] Whole blood hemoglobin A1c/t otal hemoglobin ratio (mass fraction)Ordered By: Jackeline Aguilar on 11-26-2023 HbA1c (Bld) [Mass fraction] 10.5 % 3.8-5.6 [facility] Comment on above: Normal < 5.7 % Predi abetic 5.7 - 6.4 % Diabetic >or= 6.5 % Please note range changes. Absolute lymphocyte countOrd ered By: Nathan Pineda on 10-17-2023 Lymphocytes Auto (Unsp spec) [#/Vol] 1.46 10*3/uL 0.83-4.51 [facility] Automated lymphocyte count a s percentage of total leukocytesOrdered By: Nathan Pineda on 10-17-2023 Lymphocytes/100 WBC Auto (Unsp spec) 10.9 % 19-41 [facility] Basophil percentageOrdered B y: Nathan Pineda on 10-17-2023 Basophils/100 WBC (Bld) 0.1 % 0-1 [facility] Eosinophils/100 WBC (Bld) 0.0 % 0-5 [facility] Hemoglobin (Bld) [Mass/Vol] 12.7 g/dL 12.0-15.0 [facility] Monocytes/100 WBC (Bld) 5.0 % 0-10 [facility] Neutrophils (Bld) [#/Vol] 11.3 10*3/uL 2.0-7.7 [facility] Neutrophils/100 WBC (Bld) 83.6 % 47-70 [facility] WBC (Bld) [#/Vol] 13.5 10*3/uL 4.4-11.0 [facility] Basophil percentageOrdered B y: Damien Villagran on 10-17-2023 Chloride [Moles/Vol] 114 mmol/L 98-107 [facility] Glucose [Mass/Vol] 144 mg/dL 74-106 [facility] Comment on above: Fasting Glucose resu lt greater than or equal to 126 mg/dL suggests DIABETES MELLITUS per A.D.A. criteria. Potassium [Moles/Vol] 3.1 mmol/L 3.5-5.1 [facility] Sodium [Moles/Vol] 141 mmol/L 136-145 [facility] Determination of erythrocyte mean corpuscular volume (MCV)Ordered By: Nathan Pineda on 10-17-2023 MCV (RBC) [Entitic vol] 83.8 fL 81-99 [facility] Erythrocyte distribution wid th ratioOrdered By: Nathan Pineda on 10-17-2023 Erythrocyte distribution width (RBC) [Ratio] 13.4 % 11.6-14.6 [facility] Erythrocyte distribution wid th standard deviationOrdered By: Nathan Pineda on 10-17-2023 Erythrocyte distribution width (RBC) [Entitic vol] 40.5 fL 35.1-43.9 [facility] Hematocrit Auto (Bld) [Volum e fraction]Ordered By: Nathan Pineda on 10-17-2023 Hematocrit (Bld) [Volume fraction] 39.2 % 37-47 [facility] Immature granulocytes/100 WB C Auto (Bld)Ordered By: Nathan Pineda on 10-17-2023 Immature granulocytes/100 WBC (Bld) 0.400 % 0.0-0.9 [facility] Comment on above: IG% - Immature Granu locytes (promyelocytes, myelocytes and metamyelocytes) > 1% indicates that a LEFT SHIFT is Present. Laboratory - Chemistry and C hemistry - challengeOrdered By: Damien Villagran on 10-17-2023 CO2 [Moles/Vol] 20.0 mmol/L 21.0-32.0 [facility] Urea nitrogen/Creatinine [Mass ratio] 18.9 mg/mg 10-20 [facility] Laboratory - Hematology and Cell countsOrdered By: Nathan Pineda on 10-17-2023 MCH (RBC) [Entitic mass] 27.1 pg 27.0-32.0 [facility] MCHC (RBC) [Mass/Vol] 32.4 g/dL 32-36 [facility] Nucleated RBC/100 WBC (Bld) [Ratio] 0 % 0-5 [facility] Platelet mean volume (Bld) [Entitic vol] 8.8 fL 6.2-12.0 [facility] Platelets (Bld) [#/Vol] 388 10*3/uL 150-450 [facility] No Panel InformationOrdered By: Damien Villagran on 10-17-2023 Estimated Creatinine Clearance Calc 96.69 ml/min [facility] Estimated GFR (MDRD) Amer 122 mL/min >60 [facility] Comment on above: GFR Calc Estimated GFR (MDRD) Non-Af Amer 101 mL/min >60 [facility] Comment on above: Non- GFR Calc RBC Auto (Bld) [#/Vol]Ordere d By: Nathan Pineda on 10-17-2023 RBC (Bld) [#/Vol] 4.68 10*6/uL 4.2-5.4 [facility] Serum or plasma calcium edward urement (mass/volume)Ordered By: Damien Villagran on 10-17-2023 Calcium [Mass/Vol] 8.7 mg/dL 8.5-10.1 [facility] Serum or plasma creatinine m easurement (mass/volume)Ordered By: Damien Villagran on 10-17-2023 Creatinine [Mass/Vol] 0.74 mg/dL 0.55-1.02 [facility] Comment on above: The validity of the calculated GFR & GFRAA in patients over 70 years has not been determined. Clinical correlation is essential. Serum or plasma urea nitroge n measurement (mass/volume)Ordered By: Damien Villagran on 10-17-2023 Urea nitrogen [Mass/Vol] 14 mg/dL 7-18 [facility] Thin prep Papanicolaou smear with manual screeningOrdered By: Nathan Pineda on 10-17-2023 Thin prep Papanicolaou smear with manual screening 254 mg/dL 74-106 [facility] Comment on above: MANAGEMENT OF PATIEN T CARE PER NURSING PROTOCOL Thin prep Papanicolaou smear with manual screeningOrdered By: Damien Villagran on 10-17-2023 Thin prep Papanicolaou smear with manual screening 7 5-15 [facility] Absolute lymphocyte countOrd ered By: Kassy Rosales on 10-16-2023 Lymphocytes Auto (Unsp spec) [#/Vol] 0.63 10*3/uL 0.83-4.51 [facility] Automated lymphocyte count a s percentage of total leukocytesOrdered By: Kassy Rosales on 10-16-2023 Lymphocytes/100 WBC Auto (Unsp spec) 3.7 % 19-41 [facility] Basophil percentageOrdered B y: Kassy Rosales on 10-16-2023 Chloride [Moles/Vol] 111 mmol/L 98-107 [facility] Glucose [Mass/Vol] 310 mg/dL 74-106 [facility] Comment on above: Glucose result great er than or equal to 200 mg/dLsuggests DIABETES MELLITUS per A.D.A. criteria. Potassium [Moles/Vol] 3.3 mmol/L 3.5-5.1 [facility] Sodium [Moles/Vol] 142 mmol/L 136-145 [facility] Basophil percentage 0 SEEN /hpf 0-5 [facility] Basophils/100 WBC (Bld) 0.4 % 0-1 [facility] Eosinophils/100 WBC (Bld) 0.0 % 0-5 [facility] Hemoglobin (Bld) [Mass/Vol] 16.4 g/dL 12.0-15.0 [facility] Monocytes/100 WBC (Bld) 2.1 % 0-10 [facility] Neutrophils (Bld) [#/Vol] 15.8 10*3/uL 2.0-7.7 [facility] Neutrophils/100 WBC (Bld) 93.3 % 47-70 [facility] WBC (Bld) [#/Vol] 16.9 10*3/uL 4.4-11.0 [facility] Bilirubin Test strip Ql (U)O rdered By: Kassy Rosales on 10-16-2023 Bilirubin Ql (U) Negative Negative [facility] Determination of erythrocyte mean corpuscular volume (MCV)Ordered By: Remus Rosales on 10-16-2023 MCV (RBC) [Entitic vol] 85.9 fL 81-99 [facility] Erythrocyte distribution wid th ratioOrdered By: Christianacareadrian on 10-16-2023 Erythrocyte distribution width (RBC) [Ratio] 13.0 % 11.6-14.6 [facility] Erythrocyte distribution wid th standard deviationOrdered By: Christianacareadrina on 10-16-2023 Erythrocyte distribution width (RBC) [Entitic vol] 40.3 fL 35.1-43.9 [facility] Hematocrit Auto (Bld) [Volum e fraction]Ordered By: Christianacareadrian on 10-16-2023 Hematocrit (Bld) [Volume fraction] 50.4 % 37-47 [facility] Immature granulocytes/100 WB C Auto (Bld)Ordered By: Christianacareadrian on 10-16-2023 Immature granulocytes/100 WBC (Bld) 0.500 % 0.0-0.9 [facility] Comment on above: IG% - Immature Granu locytes (promyelocytes, myelocytes and metamyelocytes) > 1% indicates that a LEFT SHIFT is Present. Ketones Test strip Ql (U)Ord ered By: Christianacareadrian on 10-16-2023 Ketones Ql (U) 150 mg/dl Negative [facility] Comment on above: CRITICAL VALUE *HRES ULTS CALLED TO [facility] 10/16/23 1742 Agatha Quijano.REPORT READ BACK BY SAME. Laboratory - Chemistry and C hemistry - challengeOrdered By: [facility] on 10-16-2023 CO2 [Moles/Vol] 12.0 mmol/L 21.0-32.0 [facility] Urea nitrogen/Creatinine [Mass ratio] 20.8 mg/mg 10-20 [facility] Magnesium [Mass/Vol] 2.2 mg/dL 1.6-2.6 [facility] Laboratory - Hematology and Cell countsOrdered By: [facility] on 10-16-2023 MCH (RBC) [Entitic mass] 27.9 pg 27.0-32.0 [facility] MCHC (RBC) [Mass/Vol] 32.5 g/dL 32-36 [facility] Nucleated RBC/100 WBC (Bld) [Ratio] 0 % 0-5 [facility] Platelet mean volume (Bld) [Entitic vol] 9.1 fL 6.2-12.0 [facility] Platelets (Bld) [#/Vol] 455 10*3/uL 150-450 [facility] Mucus LM Ql (Urine sed)Order ed By: Kassy Rosales on 10-16-2023 Mucus Ql (Urine sed) 0 SEEN /hpf [facility] Nitrite Test strip Ql (U)Ord ered By: Kassy Rosales on 10-16-2023 Nitrite Ql (U) Negative Negative [facility] No Panel InformationOrdered By: Kassy Rosales on 10-16-2023 Estimated Creatinine Clearance Calc 87.17 ml/min [facility] Estimated GFR (MDRD) Amer 102 mL/min >60 [facility] Comment on above: GFR Calc Estimated GFR (MDRD) Non-Af Amer 85 mL/min >60 [facility] Comment on above: Non- GFR Calc Urine RBC 0 SEEN /hpf 0-5 [facility] Protein Test strip Ql (U)Ord ered By: Kassy Rosales on 10-16-2023 Protein Ql (U) 100 mg/dl Negative [facility] RBC Auto (Bld) [#/Vol]Ordere d By: Kassy Rosales on 10-16-2023 RBC (Bld) [#/Vol] 5.87 10*6/uL 4.2-5.4 [facility] Serum or plasma acetone edward urement (mass/volume)Ordered By: Kassy Rosales on 10-16-2023 Acetone [Mass/Vol] MODERATE NEG [facility] Serum or plasma calcium edward urement (mass/volume)Ordered By: Kassy Rosales on 10-16-2023 Calcium [Mass/Vol] 8.3 mg/dL 8.5-10.1 [facility] Serum or plasma choriogonado tropin detectionOrdered By: Kassy Rosales on 10-16-2023 HCG ( test) Ql Negative [facility] Serum or plasma creatinine m easurement (mass/volume)Ordered By: Kassy Rosales on 10-16-2023 Creatinine [Mass/Vol] 0.86 mg/dL 0.55-1.02 [facility] Comment on above: The validity of the calculated GFR & GFRAA in patients over 70 years has not been determined. Clinical correlation is essential. Serum or plasma urea nitroge n measurement (mass/volume)Ordered By: Kassy Rosales on 10-16-2023 Urea nitrogen [Mass/Vol] 18 mg/dL 7-18 [facility] Squamous epithelial cells de tection in urine sediment by light microscopyOrdered By: Kassy Rosales on 10-16-2023 Epithelial cells.squamous LM Ql (Urine sed) 0-5 SEEN /hpf 5-10 [facility] Thin prep Papanicolaou smear with manual screeningOrdered By: Damien Villagran on 10-16-2023 Thin prep Papanicolaou smear with manual screening 297 mg/dL 74-106 [facility] Comment on above: MANAGEMENT OF PATIEN T CARE PER NURSING PROTOCOL Thin prep Papanicolaou smear with manual screeningOrdered By: Kassy Rosales on 10-16-2023 Thin prep Papanicolaou smear with manual screening 19 5-15 [facility] Urine blood detectionOrdered By: Kassy Rosales on 10-16-2023 RBC Ql (U) 10 /ul Negative [facility] Urine clarityOrdered By: Alisha Rosales on 10-16-2023 Clarity (U) Clear Clear [facility] Urine color determinationOrd ered By: Kassy Rosales on 10-16-2023 Color (U) Yellow Yellow [facility] Urine glucose detectionOrder ed By: Kassy Rosales on 10-16-2023 Glucose Ql (U) 1000 mg/dl Normal [facility] Urine leukocyte esterase det ection by dipstickOrdered By: Kassy Rosales on 10-16-2023 Leukocyte esterase Test strip Ql (U) Negative Negative [facility] Urine pHOrdered By: Kassy Duncan gur on 10-16-2023 pH (U) 5.0 [pH] 5.0 - 8.0 [facility] Urine sediment bacteria coun t by microscopy (number/high power field)Ordered By: Kassy Rosales on 10-16-2023 Bacteria LM.HPF (Urine sed) [#/Area] 0 /[HPF] None Seen [facility] Urine specific gravity measu rementOrdered By: Kassy Rosales on 10-16-2023 Specific gravity (U) [Rel density] 1.025 1.002-1.030 [facility] Urine urobilinogen measureme ntOrdered By: Kassy Barajasadrian on 10-16-2023 Urobilinogen Ql (U) Normal mg/dl Normal [facility] Whole blood hemoglobin A1c/t otal hemoglobin ratio (mass fraction)Ordered By: Damien Villagran on 10-16-2023 HbA1c (Bld) [Mass fraction] 10.7 % 3.8-5.6 [facility] Comment on above: Normal < 5.7 % Predi abetic 5.7 - 6.4 % Diabetic >or= 6.5 % Please note range changes. Absolute lymphocyte countOrd ered By: Franky Najera on 08-23-2023 Lymphocytes Auto (Unsp spec) [#/Vol] 0.59 10*3/uL 0.83-4.51 [facility] Automated lymphocyte count a s percentage of total leukocytesOrdered By: Franky Najera on 08-23-2023 Lymphocytes/100 WBC Auto (Unsp spec) 16.8 % 19-41 [facility] Base excessOrdered By: Jorden Najera on 08-23-2023 Base excess Calc (BldV) [Moles/Vol] 0 mmol/L -1.0-3.5 [facility] Basophil percentageOrdered B y: Franky Najera on 08-23-2023 Basophil percentage 0 SEEN /hpf 0-5 [facility] Basophils/100 WBC (Bld) 0.9 % 0-1 [facility] Bilirubin [Mass/Vol] 0.60 mg/dL 0.20-1.00 [facility] Comment on above: For patients on eltr ombopag therapy, use of [facility] TBIL is not recommended. Chloride [Moles/Vol] 109 mmol/L 98-107 [facility] Eosinophils/100 WBC (Bld) 0.0 % 0-5 [facility] Glucose [Mass/Vol] 159 mg/dL 74-106 [facility] Comment on above: Fasting Glucose resu lt greater than or equal to 126 mg/dL suggests DIABETES MELLITUS per A.D.A. criteria. Hemoglobin (Bld) [Mass/Vol] 13.0 g/dL 12.0-15.0 [facility] Monocytes/100 WBC (Bld) 11.4 % 0-10 [facility] Neutrophils (Bld) [#/Vol] 2.5 10*3/uL 2.0-7.7 [facility] Neutrophils/100 WBC (Bld) 70.6 % 47-70 [facility] Potassium [Moles/Vol] 3.6 mmol/L 3.5-5.1 [facility] Protein [Mass/Vol] 7.4 g/dL 6.4-8.2 [facility] Sodium [Moles/Vol] 139 mmol/L 136-145 [facility] WBC (Bld) [#/Vol] 3.5 10*3/uL 4.4-11.0 [facility] Bilirubin Test strip Ql (U)O rdered By: Franky Najera on 08-23-2023 Bilirubin Ql (U) Negative Negative [facility] CO2 (BldV) [Moles/Vol]Ordere d By: Franky Najera on 08-23-2023 CO2 [Moles/Vol] 24 mmol/L 23-33 [facility] Determination of erythrocyte mean corpuscular volume (MCV)Ordered By: Franky Najera on 08-23-2023 MCV (RBC) [Entitic vol] 85.1 fL 81-99 [facility] Erythrocyte distribution wid th ratioOrdered By: Franky Najera on 08-23-2023 Erythrocyte distribution width (RBC) [Ratio] 13.3 % 11.6-14.6 [facility] Erythrocyte distribution wid th standard deviationOrdered By: Franky Najera on 08-23-2023 Erythrocyte distribution width (RBC) [Entitic vol] 41.6 fL 35.1-43.9 [facility] Hematocrit Auto (Bld) [Volum e fraction]Ordered By: Franky Najera on 08-23-2023 Hematocrit (Bld) [Volume fraction] 40.6 % 37-47 [facility] Immature granulocytes/100 WB C Auto (Bld)Ordered By: Franky Najera on 08-23-2023 Immature granulocytes/100 WBC (Bld) 0.300 % 0.0-0.9 [facility] Comment on above: IG% - Immature Granu locytes (promyelocytes, myelocytes and metamyelocytes) > 1% indicates that a LEFT SHIFT is Present. Ketones Test strip Ql (U)Ord ered By: Franky Najera on 08-23-2023 Ketones Ql (U) 15 mg/dl Negative [facility] Laboratory - Chemistry and C hemistry - challengeOrdered By: Franky Najera on 08-23-2023 HCG ( test) Ql (U) Negative [facility] Comment on above: Very dilute urine sp ecimens, as indicated by a low specificgravity, may not contain medical field representative levels of hCG. If is still suspected, a first morning urinespecimen should be collected 48 hours later and tested. Albumin/Globulin [Mass ratio] 0.9 {ratio} 0.9-2.4 [facility] ALP [Catalytic activity/Vol] 74 U/L 45-117 [facility] ALT [Catalytic activity/Vol] 19 U/L 13-56 [facility] CO2 [Moles/Vol] 23.0 mmol/L 21.0-32.0 [facility] Globulin (S) [Mass/Vol] 3.8 g/dL 2.2-4.2 [facility] Lipase [Catalytic activity/Vol] 11 U/L 13-75 [facility] Comment on above: Please note:LIPASE r evised reference range effective 22. New Lipase methodology. Expected to produce lower values than the previous assay method. NEW Reference Range: 13 - 75 U/L Urea nitrogen/Creatinine [Mass ratio] 20.0 mg/mg 10-20 [facility] Laboratory - Hematology and Cell countsOrdered By: Franky Najera on 08-23-2023 MCH (RBC) [Entitic mass] 27.3 pg 27.0-32.0 [facility] MCHC (RBC) [Mass/Vol] 32.0 g/dL 32-36 [facility] Nucleated RBC/100 WBC (Bld) [Ratio] 0 % 0-5 [facility] Platelets (Bld) [#/Vol] 312 10*3/uL 150-450 [facility] Laboratory - Microbiology an d Antimicrobial susceptibilityOrdered By: Franky Najera on 08-23-2023 SARS-CoV-2 (COVID-19) RNA JEANNETTE+probe Ql (Unsp spec) Influenzae A [facility] Mucus LM Ql (Urine sed)Order ed By: Franky Najera on 08-23-2023 Mucus Ql (Urine sed) 0 SEEN /hpf [facility] Nitrite Test strip Ql (U)Ord ered By: Franky Najera on 08-23-2023 Nitrite Ql (U) Negative Negative [facility] No Panel InformationOrdered By: Franky Najera on 08-23-2023 Urine RBC 0 SEEN /hpf 0-5 [facility] Blood Gas Sample Site Not entered [facility] Blood Gas Specimen Type LUIS [facility] Oxygen Delivery Device Not entered [facility] Estimated Creatinine Clearance Calc 115.76 ml/min [facility] Estimated GFR (MDRD) Amer 143 mL/min >60 [facility] Comment on above: GFR Calc Estimated GFR (MDRD) Non-Af Amer 118 mL/min >60 [facility] Comment on above: Non- GFR Calc Troponin I High Sensitivity 3 pg/mL 3.0-54.0 [facility] Comment on above: Please Note: [place] t Units and Gender Specific Reference Ranges. For more information see Policy Stat Procedure [facility] High Sensitivity Troponin (TNIH) and attachments. PCO2 venousOrdered By: Jorden Najera on 08-23-2023 CO2 (BldV) [Partial pressure] 28.3 mm[Hg] 41-51 [facility] PO2 venousOrdered By: Franky Najera on 08-23-2023 Oxygen (BldV) [Partial pressure] 64 mm[Hg] 25-40 [facility] Platelet mean volume Khadar-Ec ker (Bld) [Entitic vol]Ordered By: Franky Najera on 08-23-2023 Platelet mean volume (Bld) [Entitic vol] 8.4 fL 6.2-12.0 [facility] Protein Test strip Ql (U)Ord ered By: Franky Najera on 08-23-2023 Protein Ql (U) 30 mg/dl Negative [facility] RBC Auto (Bld) [#/Vol]Ordere d By: Franky Najera on 08-23-2023 RBC (Bld) [#/Vol] 4.77 10*6/uL 4.2-5.4 [facility] Serum or plasma acetone edward urement (mass/volume)Ordered By: Franky Najera on 08-23-2023 Acetone [Mass/Vol] SMALL NEG [facility] Serum or plasma calcium edward urement (mass/volume)Ordered By: Franky Najera on 08-23-2023 Calcium [Mass/Vol] 8.8 mg/dL 8.5-10.1 [facility] Serum or plasma creatinine m easurement (mass/volume)Ordered By: Franky Najera on 08-23-2023 Creatinine [Mass/Vol] 0.65 mg/dL 0.55-1.02 [facility] Comment on above: The validity of the calculated GFR & GFRAA in patients over 70 years has not been determined. Clinical correlation is essential. Serum or plasma urea nitroge n measurement (mass/volume)Ordered By: Franky Najera on 08-23-2023 Urea nitrogen [Mass/Vol] 13 mg/dL 7-18 [facility] Squamous epithelial cells de tection in urine sediment by light microscopyOrdered By: Franky Najera on 08-23-2023 Epithelial cells.squamous LM Ql (Urine sed) 0 SEEN /hpf 5-10 [facility] Thin prep Papanicolaou smear with manual screeningOrdered By: Franky Najera on 08-23-2023 Thin prep Papanicolaou smear with manual screening 3.6 g/dL 3.2-5.0 [facility] Thin prep Papanicolaou smear with manual screening 17 U/L 15-37 [facility] Thin prep Papanicolaou smear with manual screening 7 5-15 [facility] Urine blood detectionOrdered By: Franky Najera on 08-23-2023 RBC Ql (U) Negative Negative [facility] Urine clarityOrdered By: Katie Najera on 08-23-2023 Clarity (U) Clear Clear [facility] Urine color determinationOrd ered By: Franky Najera on 08-23-2023 Color (U) Yellow Yellow [facility] Urine glucose detectionOrder ed By: Franky Najera on 08-23-2023 Glucose Ql (U) Normal mg/dl Normal [facility] Urine leukocyte esterase det ection by dipstickOrdered By: Franky Najera on 08-23-2023 Leukocyte esterase Test strip Ql (U) Negative Negative [facility] Urine pHOrdered By: Franky pierson on 08-23-2023 pH (U) 6.0 [pH] 5.0 - 8.0 [facility] Urine sediment bacteria coun t by microscopy (number/high power field)Ordered By: Franky Najera on 08-23-2023 Bacteria LM.HPF (Urine sed) [#/Area] 0 /[HPF] None Seen [facility] Urine specific gravity measu rementOrdered By: Franky Najera on 08-23-2023 Specific gravity (U) [Rel density] 1.015 1.002-1.030 [facility] Urine urobilinogen measureme ntOrdered By: Franky Najera on 08-23-2023 Urobilinogen Ql (U) Normal mg/dl Normal [facility] Venous blood oxygen saturati on (pure mass fraction)Ordered By: Franky Najera on 08-23-2023 SaO2% (BldV) [Pure mass fraction] 95 % 50-70 [facility] Venous blood pH measurementO rdered By: Franky Najera on 08-23-2023 pH (BldV) 7.52 [pH] 7.32-7.42 [facility] Venous cord blood bicarbonat e measurementOrdered By: Franky Najera on 08-23-2023 HCO3 (BldCoV) [Moles/Vol] 23 mmol/L 22- [facility] Basophil percentageOrdered B y: Indira Wang on 08-13-2023 Bilirubin [Mass/Vol] 0.50 mg/dL 0.20-1.00 [facility] Comment on above: For patients on eltr ombopag therapy, use of [facility] TBIL is not recommended. Chloride [Moles/Vol] 105 mmol/L 98-107 [facility] Cholesterol [Mass/Vol] 201 mg/dL <200 [facility] Comment on above: <200 mg/dL Desirable 200-240 mg/dL Borderline >240 mg/dL High Risk Glucose [Mass/Vol] 273 mg/dL 74-106 [facility] Comment on above: Glucose result great er than or equal to 200 mg/dLsuggests DIABETES MELLITUS per A.D.A. criteria. Potassium [Moles/Vol] 4.3 mmol/L 3.5-5.1 [facility] Protein [Mass/Vol] 7.2 g/dL 6.4-8.2 [facility] Sodium [Moles/Vol] 136 mmol/L 136-145 [facility] Triglyceride [Mass/Vol] 70 mg/dL <199 [facility] Comment on above: The drugs N-Acetylcy steine and Metamizole may falsely depress this assay.Serum Triglycerides Reference Interval Normal <150 mg/dL Borderline high 150 - 199 mg/dL High 200 - 499 mg/dL Very High > or = 500 mg/dL High density lipoprotein (HD L) measurementOrdered By: Indira Wang on 08-13-2023 Cholesterol in HDL (Body fld) [Mass/Vol] 99 mg/dL >40 [facility] Comment on above: The drugs N-Acetylcy steine and Metamizole may falsely depress this assay. Reference Range HDL <40 mg/dL Low HDL Cholesterol HDL >or= 60 mg/dL High HDL Cholesterol Laboratory - Chemistry and C hemistry - challengeOrdered By: Indira Wang on 08-13-2023 Albumin/Globulin [Mass ratio] 1.0 {ratio} 0.9-2.4 [facility] ALP [Catalytic activity/Vol] 90 U/L 45-117 [facility] ALT [Catalytic activity/Vol] 16 U/L 13-56 [facility] CO2 [Moles/Vol] 23.0 mmol/L 21.0-32.0 [facility] Globulin (S) [Mass/Vol] 3.6 g/dL 2.2-4.2 [facility] Urea nitrogen/Creatinine [Mass ratio] 22.7 mg/mg 10-20 [facility] Laboratory - Hematology and Cell countson 08-13-2023 HbA1c (Bld) [Mass fraction] 11.0 % 4.2-6.3 [facility] Low density lipoprotein (LDL ) cholesterol measurementOrdered By: Indira Wang on 08-13-2023 Cholesterol in LDL (Body fld) [Moles/Vol] 88 mg/dL 0-130 [facility] No Panel InformationOrdered By: Indira Wang on 08-13-2023 Estimated GFR (MDRD) Amer 151 mL/min >60 [facility] Comment on above: GFR Calc Estimated GFR (MDRD) Non-Af Amer 125 mL/min >60 [facility] Comment on above: Non- GFR Calc Vitamin D 25-Hydroxy 25.2 ng/mL [facility] Comment on above: Vitamin D 25(OH) Sta tus Range Deficiency <20 ng/mL (50nmol/L) Insufficiency 20 - 30 ng/mL (50 - 75 nmol/L) Sufficiency 30 - 100 ng/mL (75 - 250 nmol/L) Toxicity >100 ng/mL (>250 nmol/L) Serum or plasma calcium edward urement (mass/volume)Ordered By: Indira Wang on 08-13-2023 Calcium [Mass/Vol] 9.1 mg/dL 8.5-10.1 [facility] Serum or plasma creatinine m easurement (mass/volume)Ordered By: Indira Wang on 08-13-2023 Creatinine [Mass/Vol] 0.62 mg/dL 0.55-1.02 [facility] Comment on above: The validity of the calculated GFR & GFRAA in patients over 70 years has not been determined. Clinical correlation is essential. Serum or plasma thyroid stim ulating hormone (TSH) measurement (units/volume)Ordered By: Indira Wang on 08-13-2023 TSH Qn 2.35 uIU/mL 0.358-3.74 [facility] Serum or plasma urea nitroge n measurement (mass/volume)Ordered By: Indira Wang on 08-13-2023 Urea nitrogen [Mass/Vol] 14 mg/dL 7-18 [facility] Thin prep Papanicolaou smear with manual screeningOrdered By: Indira Wang on 08-13-2023 Thin prep Papanicolaou smear with manual screening 3.6 g/dL 3.2-5.0 [facility] Thin prep Papanicolaou smear with manual screening 19 U/L 15-37 [facility] Thin prep Papanicolaou smear with manual screening 8 5-15 [facility] Thin prep Papanicolaou smear with manual screening < 5.0 mg/L NO RANGE EST. [facility] Urine albumin/creatinine rat io for detection of microalbuminuriaOrdered By: Indira Wang on 08-13-2023 Albumin/Creatinine DL <= 1.0 mg/L (24H U) [Ratio] [facility] Comment on above: Test not performed Urine creatinine measurement (mass/volume)Ordered By: Indira Wang on 08-13-2023 Creatinine (U) [Mass/Vol] 44.30 mg/dL NO RANGE EST. [facility] Very low density lipoprotein (VLDL) cholesterol measurementOrdered By: Indira Wang on 08-13-2023 Cholesterol in VLDL Calc [Moles/Vol] 14 mg/dL 5-40 [facility] Laboratory - Hematology and Cell countson 05-12-2023 HbA1c (Bld) [Mass fraction] 11.2 % 4.2-6.3 [facility] STREP A MOLECULAR (POC)on Procedural Control Valid [facility] Strep A (POCT) Negative Negative [facility] Basophil percentageOrdered B y: Diego Haas on 03-05-2023 Basophil percentage 181 mg/dL 74-106 [facility] Basophil percentage 136 mmol/L 136-145 [facility] Basophil percentage 3.2 mmol/L 3.5-5.1 [facility] Basophil percentage 100 mmol/L 98-107 [facility] Glucose Glucometer (BldC) [M ass/Vol]Ordered By: Diego Haas on 03-05-2023 Glucose [Mass/Vol] 186 mg/dL 74-106 [facility] No Panel InformationOrdered By: Diego Haas on 03-05-2023 243 mL/min >60 [facility] 294 mL/min >60 [facility] 223.81 ml/min [facility] 26.0 mmol/L 21.0-32.0 [facility] Serum or plasma calcium edward urement (mass/volume)Ordered By: Diego Haas on 03-05-2023 Calcium [Mass/Vol] 8.4 mg/dL 8.5-10.1 [facility] Serum or plasma creatinine m easurement (mass/volume)Ordered By: Diego Haas on 03-05-2023 Creatinine [Mass/Vol] 0.35 mg/dL 0.55-1.02 [facility] Serum or plasma urea nitroge n measurement (mass/volume)Ordered By: Diego Haas on 03-05-2023 Urea nitrogen [Mass/Vol] mg/dL 7-18 [facility] Thin prep Papanicolaou smear with manual screeningOrdered By: Diego Haas on 03-05-2023 Thin prep Papanicolaou smear with manual screening 10 5-15 [facility] Absolute lymphocyte countOrd ered By: Uziel Mahmood on 03-04-2023 Lymphocytes Auto (Unsp spec) [#/Vol] 1.17 10*3/uL 0.83-4.51 [facility] Basophil percentageOrdered B y: Diego Haas on 03-04-2023 Basophil percentage 1.7 mg/dL 2.5-4.9 [facility] Basophil percentageOrdered B y: Uziel Mahmood on 03-04-2023 Basophils (Bld) [#/Vol] 5.7 10*3/uL 4.4-11.0 [facility] Basophils (Bld) [#/Vol] 4.0 10*3/uL 2.0-7.7 [facility] Basophils/100 WBC (Bld) 69.8 % 47-70 [facility] Basophils/100 WBC (Bld) 0.5 % 0-5 [facility] Basophils/100 WBC (Bld) 0.4 % 0-1 [facility] Blood erythrocytes count (nu mber/volume)Ordered By: Uziel Mahmood on 03-04-2023 RBC (Bld) [#/Vol] 3.92 10*6/uL 4.2-5.4 [facility] Blood hemoglobin measurement (mass/volume)Ordered By: Uziel Mahmood on 03-04-2023 Hemoglobin (Bld) [Mass/Vol] 10.9 g/dL 12.0-15.0 [facility] Blood lymphocytes/100 leukoc ytesOrdered By: Uziel Mahmood on 03-04-2023 Lymphocytes/100 WBC (Bld) 20.6 % 19-41 [facility] Blood monocytes/100 leukocyt esOrdered By: Uziel Mahmood on 03-04-2023 Monocytes/100 WBC (Bld) 8.3 % 0-10 [facility] Blood platelet mean volumeOr dered By: Uziel Mahmood on 03-04-2023 Platelet mean volume (Bld) [Entitic vol] 7.9 fL 6.2-12.0 [facility] Determination of erythrocyte mean corpuscular volume (MCV)Ordered By: Uziel Mahmood on 03-04-2023 MCV (RBC) [Entitic vol] 83.4 fL 81-99 [facility] Hematocrit Auto (Bld) [Volum e fraction]Ordered By: Uziel Mahmood on 03-04-2023 Hematocrit (Bld) [Volume fraction] 32.7 % 37-47 [facility] MCHC Auto (RBC) [Mass/Vol]Or dered By: Uziel Mahmood on 03-04-2023 MCHC (RBC) [Mass/Vol] 33.3 g/dL 32-36 [facility] No Panel InformationOrdered By: Diego Haas on 03-04-2023 1.7 mg/dL 1.6-2.6 [facility] No Panel InformationOrdered By: Uziel Mahmood on 03-04-2023 27.8 pg 27.0-32.0 [facility] 12.5 % 11.6-14.6 [facility] 37.9 fl 35.1-43.9 [facility] 0.400 % 0.0-0.9 [facility] 0 % 0-5 [facility] Platelets bldOrdered By: Grover Mahmood on 03-04-2023 Platelets (Bld) [#/Vol] 256 10*3/uL 150-450 [facility] Absolute lymphocyte countOrd ered By: Kaylen Morin on 03-03-2023 Lymphocytes Auto (Unsp spec) [#/Vol] 0.58 10*3/uL 0.83-4.51 [facility] Basophil percentageOrdered B y: Kaylen Morin on 03-03-2023 Basophil percentage 0 SEEN /hpf 0-5 [facility] Basophil percentage 294 mg/dL 74-106 [facility] Basophil percentage 7.0 g/dL 6.4-8.2 [facility] Basophil percentage 0.90 mg/dL 0.20-1.00 [facility] Basophil percentage 131 mmol/L 136-145 [facility] Basophil percentage 3.2 mmol/L 3.5-5.1 [facility] Basophil percentage 96 mmol/L 98-107 [facility] Basophils (Bld) [#/Vol] 9.2 10*3/uL 4.4-11.0 [facility] Basophils (Bld) [#/Vol] 8.1 10*3/uL 2.0-7.7 [facility] Basophils/100 WBC (Bld) 88.7 % 47-70 [facility] Basophils/100 WBC (Bld) 0.4 % 0-1 [facility] Beta hCG serum qualOrdered B y: Kaylen Morin on 03-03-2023 Beta HCG ( test) Ql Negative [facility] Bilirubin Test strip Ql (U)O rdered By: Kaylen Morin on 03-03-2023 Bilirubin Ql (U) Negative Negative [facility] Blood erythrocytes count (nu mber/volume)Ordered By: Kaylen Morin on 03-03-2023 RBC (Bld) [#/Vol] 4.69 10*6/uL 4.2-5.4 [facility] Blood hemoglobin measurement (mass/volume)Ordered By: Kaylen Morin on 03-03-2023 Hemoglobin (Bld) [Mass/Vol] 13.0 g/dL 12.0-15.0 [facility] Blood lymphocytes/100 leukoc ytesOrdered By: Kaylen Morin on 03-03-2023 Lymphocytes/100 WBC (Bld) 6.3 % 19-41 [facility] Blood monocytes/100 leukocyt esOrdered By: Kaylen Morin on 03-03-2023 Monocytes/100 WBC (Bld) 3.7 % 0-10 [facility] Blood platelet mean volumeOr dered By: Kaylen Morin on 03-03-2023 Platelet mean volume (Bld) [Entitic vol] 8.2 fL 6.2-12.0 [facility] Determination of erythrocyte mean corpuscular volume (MCV)Ordered By: Kaylen Morin on 03-03-2023 MCV (RBC) [Entitic vol] 84.0 fL 81-99 [facility] Direct bilirubinOrdered By: Kaylen Morin on 03-03-2023 Bilirubin.direct [Mass/Vol] 0.28 mg/dL 0.00-0.30 [facility] GLUCOSE, BLOOD (POC)on 03-03 Glucose [Mass/Vol] 282 mg/dL Abnormal 74 - 99 mg/dL [facility] Glucose Glucometer (BldC) [M ass/Vol]Ordered By: Kaylen Morin on 03-03-2023 Glucose [Mass/Vol] 246 mg/dL 74-106 [facility] Hematocrit Auto (Bld) [Volum e fraction]Ordered By: Kaylen Morin on 03-03-2023 Hematocrit (Bld) [Volume fraction] 39.4 % 37-47 [facility] Ketones Test strip Ql (U)Ord ered By: Kaylen Morin on 03-03-2023 Ketones Ql (U) 150 mg/dl Negative [facility] MCHC Auto (RBC) [Mass/Vol]Or dered By: Kaylen Morin on 03-03-2023 MCHC (RBC) [Mass/Vol] 33.0 g/dL 32-36 [facility] Mucus LM Ql (Urine sed)Order ed By: Kaylen Morin on 03-03-2023 Mucus Ql (Urine sed) 0 SEEN /hpf [facility] Nitrite Test strip Ql (U)Ord ered By: Kaylen Morin on 03-03-2023 Nitrite Ql (U) Negative Negative [facility] No Panel InformationOrdered By: Kaylen Morin on 03-03-2023 27.7 pg 27.0-32.0 [facility] 12.6 % 11.6-14.6 [facility] 37.7 fl 35.1-43.9 [facility] 0.500 % 0.0-0.9 [facility] 0 % 0-5 [facility] 125 mL/min >60 [facility] 151 mL/min >60 [facility] 107.35 ml/min [facility] 11.3 RATIO 10-20 [facility] 3.9 g/dL 2.2-4.2 [facility] 15 U/L 13-75 [facility] 91 U/L 45-117 [facility] 12 U/L 13-56 [facility] 17.0 mmol/L 21.0-32.0 [facility] Platelets bldOrdered By: Chani Morin on 03-03-2023 Platelets (Bld) [#/Vol] 294 10*3/uL 150-450 [facility] Protein Test strip Ql (U)Ord ered By: Kaylen Morin on 03-03-2023 Protein Ql (U) 15 mg/dl Negative [facility] Serum or plasma acetone edward urement (mass/volume)Ordered By: Kaylen Morin on 03-03-2023 Acetone [Mass/Vol] MODERATE NEG [facility] Serum or plasma albumin edward urement (mass/volume)Ordered By: Kaylen Morin on 03-03-2023 Albumin [Mass/Vol] 3.1 g/dL 3.2-5.0 [facility] Serum or plasma calcium edward urement (mass/volume)Ordered By: Kaylen Morin on 03-03-2023 Calcium [Mass/Vol] 8.9 mg/dL 8.5-10.1 [facility] Serum or plasma creatinine m easurement (mass/volume)Ordered By: Kaylen Morin on 03-03-2023 Creatinine [Mass/Vol] 0.62 mg/dL 0.55-1.02 [facility] Serum or plasma urea nitroge n measurement (mass/volume)Ordered By: Kaylen Morin on 03-03-2023 Urea nitrogen [Mass/Vol] 7 mg/dL 7-18 [facility] Squamous epithelial cells de tection in urine sediment by light microscopyOrdered By: Kaylen Morin on 03-03-2023 Epithelial cells.squamous LM Ql (Urine sed) 0 SEEN /hpf 5-10 [facility] Thin prep Papanicolaou smear with manual screeningOrdered By: Kaylen Morin on 03-03-2023 Thin prep Papanicolaou smear with manual screening 11 U/L 15-37 [facility] Thin prep Papanicolaou smear with manual screening 18 5-15 [facility] UA DIP, URINE (POC)on 2022 BILIRUBIN UA (POCT) Negative Negative [facility] CLARITY UA (POCT) Clear [facility] COLOR UA (POCT) Yellow [facility] GLUCOSE UA (POCT) 500 mg/dL Abnormal Negative mg/dL [facility] HEMOGLOBIN/BLOOD UA (POCT) Negative Negative [facility] KETONE UA (POCT) >=160 Abnormal Negative mg/dL [facility] LEUKOCYTES UA (POCT) Negative Negative [facility] NITRITE UA (POCT) Negative Negative [facility] PH UA (POCT) 6.0 4.5 - 8.0 [facility] Protein Ql (U) Negative Negative mg/dL [facility] SPECIFIC GRAVITY UA (POCT) 1.025 1.005 - 1.030 [facility] UROBILINOGEN UA (POCT) 0.2 E.U./dL Normal E.U./dL [facility] Urine blood detectionOrdered By: Kaylen Morin on 03-03-2023 RBC Ql (U) Negative Negative [facility] RBC Ql (U) 0 SEEN /hpf 0-5 [facility] Urine clarityOrdered By: Chani Morin on 03-03-2023 Clarity (U) Clear Clear [facility] Urine color determinationOrd ered By: Kaylen Morin on 03-03-2023 Color (U) Yellow Yellow [facility] Urine glucose detectionOrder ed By: Kaylen Morin on 03-03-2023 Glucose Ql (U) 1000 mg/dl Normal [facility] Urine leukocyte esterase det ection by dipstickOrdered By: Kaylen Morin on 03-03-2023 Leukocyte esterase Test strip Ql (U) Negative Negative [facility] Urine pHOrdered By: Kaylen Morin on 03-03-2023 pH (U) 5.0 [pH] 5.0 - 8.0 [facility] Urine sediment bacteria coun t by microscopy (number/high power field)Ordered By: Kaylen Morin on 03-03-2023 Bacteria LM.HPF (Urine sed) [#/Area] 0 /[HPF] None Seen [facility] Urine specific gravity measu rementOrdered By: Kaylen Morin on 03-03-2023 Specific gravity (U) [Rel density] 1.020 1.002-1.030 [facility] Urobilinogen Auto test strip Ql (U)Ordered By: Kaylen Morin on 03-03-2023 Urobilinogen Ql (U) Normal mg/dl Normal [facility] Basophil percentageOrdered B y: Sunil Mina on 03-02-2023 Basophil percentage 1.2 mmol/L 0.4-2.0 [facility] Glucose Glucometer (BldC) [M ass/Vol]Ordered By: Sunil Mina on 03-02-2023 Glucose [Mass/Vol] 290 mg/dL 74-106 [facility] HCO3 (BldA) [Moles/Vol]Order ed By: Sunil Mina on 03-02-2023 HCO3 (Bld) [Moles/Vol] 18 mmol/L 22-26 [facility] No Panel InformationOrdered By: Sunil Mina on 03-02-2023 LUIS [facility] 35.7 mmHg 41-51 [facility] -8 mmol/L -1.0-3.5 [facility] 81 % 50-70 [facility] 19 mmol/L 23-33 [facility] PO2 venousOrdered By: Sunil Mina on 03-02-2023 Oxygen (BldV) [Partial pressure] 49 mm[Hg] 25-40 [facility] pH measurementOrdered By: Naomie Mina on 03-02-2023 pH (Unsp spec) 7.32 [pH] 7.32-7.42 [facility] Absolute lymphocyte countOrd ered By: Sunil Mina on 03-01-2023 Lymphocytes Auto (Unsp spec) [#/Vol] 0.43 10*3/uL 0.83-4.51 [facility] Basophil percentageOrdered B y: Sunil Mina on 03-01-2023 Basophils (Bld) [#/Vol] 8.9 10*3/uL 4.4-11.0 [facility] Basophils (Bld) [#/Vol] 7.8 10*3/uL 2.0-7.7 [facility] Basophils/100 WBC (Bld) 88.4 % 47-70 [facility] Basophils/100 WBC (Bld) 0.0 % 0-5 [facility] Basophils/100 WBC (Bld) 0.3 % 0-1 [facility] Basophil percentage 0 SEEN /hpf 0-5 [facility] Basophil percentage 321 mg/dL 74-106 [facility] Basophil percentage 7.3 g/dL 6.4-8.2 [facility] Basophil percentage 0.80 mg/dL 0.20-1.00 [facility] Basophil percentage 131 mmol/L 136-145 [facility] Basophil percentage 4.4 mmol/L 3.5-5.1 [facility] Basophil percentage 96 mmol/L 98-107 [facility] Bilirubin Test strip Ql (U)O rdered By: Sunil Mina on 03-01-2023 Bilirubin Ql (U) Negative Negative [facility] Blood erythrocytes count (nu mber/volume)Ordered By: Sunil Mina on 03-01-2023 RBC (Bld) [#/Vol] 4.63 10*6/uL 4.2-5.4 [facility] Blood hemoglobin measurement (mass/volume)Ordered By: Sunil Mina on 03-01-2023 Hemoglobin (Bld) [Mass/Vol] 12.9 g/dL 12.0-15.0 [facility] Blood lymphocytes/100 leukoc ytesOrdered By: Sunil Mina on 03-01-2023 Lymphocytes/100 WBC (Bld) 4.8 % 19-41 [facility] Blood monocytes/100 leukocyt esOrdered By: Sunil Mina on 03-01-2023 Monocytes/100 WBC (Bld) 3.9 % 0-10 [facility] Blood platelet mean volumeOr dered By: Sunil Mina on 03-01-2023 Platelet mean volume (Bld) [Entitic vol] 8.3 fL 6.2-12.0 [facility] Determination of erythrocyte mean corpuscular volume (MCV)Ordered By: Sunil Mina on 03-01-2023 MCV (RBC) [Entitic vol] 86.6 fL 81-99 [facility] Direct bilirubinOrdered By: Sunil Mina on 03-01-2023 Bilirubin.direct [Mass/Vol] 0.18 mg/dL 0.00-0.30 [facility] Hematocrit Auto (Bld) [Volum e fraction]Ordered By: Sunil Mina on 03-01-2023 Hematocrit (Bld) [Volume fraction] 40.1 % 37-47 [facility] Ketones Test strip Ql (U)Ord ered By: Sunil Mina on 03-01-2023 Ketones Ql (U) 150 mg/dl Negative [facility] MCHC Auto (RBC) [Mass/Vol]Or dered By: Sunil Mina on 03-01-2023 MCHC (RBC) [Mass/Vol] 32.2 g/dL 32-36 [facility] Mucus LM Ql (Urine sed)Order ed By: Sunil Mina on 03-01-2023 Mucus Ql (Urine sed) 0 SEEN /hpf [facility] Nitrite Test strip Ql (U)Ord ered By: Sunil Mina on 03-01-2023 Nitrite Ql (U) Negative Negative [facility] No Panel InformationOrdered By: Sunil Mina on 03-01-2023 27.9 pg 27.0-32.0 [facility] 12.8 % 11.6-14.6 [facility] 40.0 fl 35.1-43.9 [facility] 2.600 % 0.0-0.9 [facility] 0 % 0-5 [facility] Negative [facility] 133 mL/min >60 [facility] 161 mL/min >60 [facility] 128.13 ml/min [facility] 22.2 RATIO 10-20 [facility] 4.3 g/dL 2.2-4.2 [facility] 14 U/L 13-75 [facility] 95 U/L 45-117 [facility] 17 U/L 13-56 [facility] 20.0 mmol/L 21.0-32.0 [facility] Platelets bldOrdered By: Kodi Mina on 03-01-2023 Platelets (Bld) [#/Vol] 303 10*3/uL 150-450 [facility] Protein Test strip Ql (U)Ord ered By: Sunil Mina on 03-01-2023 Protein Ql (U) 30 mg/dl Negative [facility] Serum or plasma acetone edward urement (mass/volume)Ordered By: Sunil Mina on 03-01-2023 Acetone [Mass/Vol] MODERATE NEG [facility] Serum or plasma albumin edward urement (mass/volume)Ordered By: Sunil Mina on 03-01-2023 Albumin [Mass/Vol] 3.0 g/dL 3.2-5.0 [facility] Serum or plasma calcium edward urement (mass/volume)Ordered By: Sunil Mina on 03-01-2023 Calcium [Mass/Vol] 9.1 mg/dL 8.5-10.1 [facility] Serum or plasma creatinine m easurement (mass/volume)Ordered By: Sunil Mina on 03-01-2023 Creatinine [Mass/Vol] 0.59 mg/dL 0.55-1.02 [facility] Serum or plasma urea nitroge n measurement (mass/volume)Ordered By: Sunil Mina on 03-01-2023 Urea nitrogen [Mass/Vol] 13 mg/dL 7-18 [facility] Squamous epithelial cells de tection in urine sediment by light microscopyOrdered By: Sunil Mina on 03-01-2023 Epithelial cells.squamous LM Ql (Urine sed) 0 SEEN /hpf 5-10 [facility] Thin prep Papanicolaou smear with manual screeningOrdered By: Sunil Mina on 03-01-2023 Thin prep Papanicolaou smear with manual screening 24 U/L 15-37 [facility] Thin prep Papanicolaou smear with manual screening 15 5-15 [facility] Urine blood detectionOrdered By: Sunil Mina on 03-01-2023 RBC Ql (U) 10 /ul Negative [facility] RBC Ql (U) 0 SEEN /hpf 0-5 [facility] Urine clarityOrdered By: Kodi Mina on 03-01-2023 Clarity (U) Clear Clear [facility] Urine color determinationOrd ered By: Sunil Mina on 03-01-2023 Color (U) Yellow Yellow [facility] Urine glucose detectionOrder ed By: Sunil Mina on 03-01-2023 Glucose Ql (U) 1000 mg/dl Normal [facility] Urine leukocyte esterase det ection by dipstickOrdered By: Sunil Mina on 03-01-2023 Leukocyte esterase Test strip Ql (U) Negative Negative [facility] Urine pHOrdered By: Sunil thomas on 03-01-2023 pH (U) 5.0 [pH] 5.0 - 8.0 [facility] Urine sediment bacteria coun t by microscopy (number/high power field)Ordered By: Sunil Mina on 03-01-2023 Bacteria LM.HPF (Urine sed) [#/Area] RARE /hpf None Seen [facility] Urine specific gravity measu rementOrdered By: Sunil Mina on 03-01-2023 Specific gravity (U) [Rel density] 1.025 1.002-1.030 [facility] Urobilinogen Auto test strip Ql (U)Ordered By: Sunil Mina on 03-01-2023 Urobilinogen Ql (U) Normal mg/dl Normal [facility] Absolute lymphocyte countOrd ered By: Jackeline Akhtar on 02-17-2023 Lymphocytes Auto (Unsp spec) [#/Vol] 1.41 10*3/uL 0.83-4.51 [facility] Basophil percentageOrdered B y: Nathan Pineda on 02-17-2023 Basophil percentage 1.3 mg/dL 2.5-4.9 [facility] Basophil percentageOrdered B y: Jackeline Akhtar on 02-17-2023 Basophil percentage 136 mg/dL 74-106 [facility] Basophil percentage 139 mmol/L 136-145 [facility] Basophil percentage 2.9 mmol/L 3.5-5.1 [facility] Basophil percentage 105 mmol/L 98-107 [facility] Basophils (Bld) [#/Vol] 9.5 10*3/uL 4.4-11.0 [facility] Basophils (Bld) [#/Vol] 7.4 10*3/uL 2.0-7.7 [facility] Basophils/100 WBC (Bld) 0.1 % 0-1 [facility] Basophils/100 WBC (Bld) 77.6 % 47-70 [facility] Basophils/100 WBC (Bld) 0.0 % 0-5 [facility] Chloride [Moles/Vol] 105 mmol/L 98-107 [facility] Eosinophils/100 WBC (Bld) 0.0 % 0-5 [facility] Glucose [Mass/Vol] 136 mg/dL 74-106 [facility] Comment on above: Fasting Glucose resu lt greater than or equal to 126 mg/dL suggests DIABETES MELLITUS per A.D.A. criteria. Neutrophils (Bld) [#/Vol] 7.4 10*3/uL 2.0-7.7 [facility] Neutrophils/100 WBC (Bld) 77.6 % 47-70 [facility] Potassium [Moles/Vol] 2.9 mmol/L 3.5-5.1 [facility] Sodium [Moles/Vol] 139 mmol/L 136-145 [facility] WBC (Bld) [#/Vol] 9.5 10*3/uL 4.4-11.0 [facility] Blood erythrocytes count (nu mber/volume)Ordered By: Jackeline Akhtar on 02-17-2023 RBC (Bld) [#/Vol] 4.30 10*6/uL 4.2-5.4 [facility] Blood hemoglobin measurement (mass/volume)Ordered By: Jackeline Akhtar on 02-17-2023 Hemoglobin (Bld) [Mass/Vol] 12.4 g/dL 12.0-15.0 [facility] Blood lymphocytes/100 leukoc ytesOrdered By: Jackeline Akhtar on 02-17-2023 Lymphocytes/100 WBC (Bld) 14.8 % 19-41 [facility] Blood monocytes/100 leukocyt esOrdered By: Jackeline Akhtar on 02-17-2023 Monocytes/100 WBC (Bld) 7.2 % 0-10 [facility] Blood platelet mean volumeOr dered By: Jackeline Akhtar on 02-17-2023 Platelet mean volume (Bld) [Entitic vol] 8.9 fL 6.2-12.0 [facility] Determination of erythrocyte mean corpuscular volume (MCV)Ordered By: Jackeline Akhtar on 02-17-2023 MCV (RBC) [Entitic vol] 81.2 fL 81-99 [facility] Glucose Glucometer (BldC) [M ass/Vol]Ordered By: Nathan Pineda on 02-17-2023 Glucose [Mass/Vol] 224 mg/dL 74-106 [facility] Comment on above: MANAGEMENT OF PATIEN T CARE PER NURSING PROTOCOL Hematocrit Auto (Bld) [Volum e fraction]Ordered By: Jackeline Akhtar on 02-17-2023 Hematocrit (Bld) [Volume fraction] 34.9 % 37-47 [facility] Laboratory - Chemistry and C hemistry - challengeOrdered By: Jackeline Akhtar on 02-17-2023 CO2 [Moles/Vol] 27.0 mmol/L 21.0-32.0 [facility] Urea nitrogen/Creatinine [Mass ratio] 15.9 mg/mg 10-20 [facility] - Hematology and Cell countsOrdered By: Jackeline Akhtar on 02-17-2023 Erythrocyte distribution width (RBC) [Entitic vol] 38.6 fL 35.1-43.9 [facility] Erythrocyte distribution width (RBC) [Ratio] 13.2 % 11.6-14.6 [facility] Immature granulocytes/100 WBC (Bld) 0.300 % 0.0-0.9 [facility] Comment on above: IG% - Immature Granu locytes (promyelocytes, myelocytes and metamyelocytes) > 1% indicates that a LEFT SHIFT is Present. MCH (RBC) [Entitic mass] 28.8 pg 27.0-32.0 [facility] Nucleated RBC/100 WBC (Bld) [Ratio] 0 % 0-5 [facility] MCHC Auto (RBC) [Mass/Vol]Or dered By: Jackeline Akhtar on 02-17-2023 MCHC (RBC) [Mass/Vol] 35.5 g/dL 32-36 [facility] No Panel InformationOrdered By: Jackeline Akhtar on 02-17-2023 Estimated Creatinine Clearance Calc 129.56 ml/min [facility] Estimated GFR (MDRD) Amer 148 mL/min >60 [facility] Comment on above: GFR Calc Estimated GFR (MDRD) Non-Af Amer 123 mL/min >60 [facility] Comment on above: Non- GFR Calc 28.8 pg 27.0-32.0 [facility] 13.2 % 11.6-14.6 [facility] 38.6 fl 35.1-43.9 [facility] 0.300 % 0.0-0.9 [facility] 0 % 0-5 [facility] 123 mL/min >60 [facility] 148 mL/min >60 [facility] 129.56 ml/min [facility] 15.9 RATIO 10-20 [facility] 27.0 mmol/L 21.0-32.0 [facility] Platelets bldOrdered By: Tyler Akhtar on 02-17-2023 Platelets (Bld) [#/Vol] 286 10*3/uL 150-450 [facility] Serum or plasma calcium edward urement (mass/volume)Ordered By: Jackeline Akhtar on 02-17-2023 Calcium [Mass/Vol] 8.4 mg/dL 8.5-10.1 [facility] Serum or plasma creatinine m easurement (mass/volume)Ordered By: Jackeline Akhtar on 02-17-2023 Creatinine [Mass/Vol] 0.63 mg/dL 0.55-1.02 [facility] Comment on above: The validity of the calculated GFR & GFRAA in patients over 70 years has not been determined. Clinical correlation is essential. Serum or plasma urea nitroge n measurement (mass/volume)Ordered By: Jackeline Akhtar on 02-17-2023 Urea nitrogen [Mass/Vol] 10 mg/dL 7-18 [facility] Thin prep Papanicolaou smear with manual screeningOrdered By: Jackeline Akhtar on 02-17-2023 Thin prep Papanicolaou smear with manual screening 7 5-15 [facility] Laboratory - Chemistry and C hemistry - challengeOrdered By: Jackeline Akhtar on 02-16-2023 Magnesium [Mass/Vol] 2.0 mg/dL 1.6-2.6 [facility] No Panel InformationOrdered By: Jackeline Akhtar on 02-16-2023 2.0 mg/dL 1.6-2.6 [facility] Absolute lymphocyte countOrd ered By: Naveed Vasquez on 02-15-2023 Lymphocytes Auto (Unsp spec) [#/Vol] 0.98 10*3/uL 0.83-4.51 [facility] Basophil percentageOrdered B y: Naveed Vasquez on 02-15-2023 Basophil percentage 0 SEEN /hpf 0-5 [facility] Basophil percentage 7.9 g/dL 6.4-8.2 [facility] Basophil percentage 1.10 mg/dL 0.20-1.00 [facility] Basophil percentage 1.5 mmol/L 0.4-2.0 [facility] Basophils/100 WBC (Bld) 0.3 % 0-1 [facility] Bilirubin [Mass/Vol] 1.10 mg/dL 0.20-1.00 [facility] Comment on above: For patients on eltr ombopag therapy, use of [facility] TBIL is not recommended. Chloride [Moles/Vol] 86 mmol/L 98-107 [facility] Eosinophils/100 WBC (Bld) 0.0 % 0-5 [facility] Glucose [Mass/Vol] 443 mg/dL 74-106 [facility] Comment on above: Glucose result great er than or equal to 200 mg/dLsuggests DIABETES MELLITUS per A.D.A. criteria. Lactate [Moles/Vol] 1.5 mmol/L 0.4-2.0 [facility] Neutrophils (Bld) [#/Vol] 21.0 10*3/uL 2.0-7.7 [facility] Neutrophils/100 WBC (Bld) 89.7 % 47-70 [facility] Potassium [Moles/Vol] 2.8 mmol/L 3.5-5.1 [facility] Protein [Mass/Vol] 7.9 g/dL 6.4-8.2 [facility] Sodium [Moles/Vol] 127 mmol/L 136-145 [facility] WBC (Bld) [#/Vol] 23.4 10*3/uL 4.4-11.0 [facility] Beta hCG serum qualOrdered B y: Naveed Vasquez on 02-15-2023 Beta HCG ( test) Ql Negative [facility] Bilirubin Test strip Ql (U)O rdered By: Naveed Vasquez on 02-15-2023 Bilirubin Ql (U) Negative Negative [facility] Blood erythrocytes count (nu mber/volume)Ordered By: Naveed Vasquez on 02-15-2023 RBC (Bld) [#/Vol] 5.61 10*6/uL 4.2-5.4 [facility] Blood hemoglobin measurement (mass/volume)Ordered By: Naveed Vasquez on 02-15-2023 Hemoglobin (Bld) [Mass/Vol] 16.1 g/dL 12.0-15.0 [facility] Blood lymphocytes/100 leukoc ytesOrdered By: Naveed Vasquez on 02-15-2023 Lymphocytes/100 WBC (Bld) 4.2 % 19-41 [facility] Blood manual differential co mment interpretation (narrative result)Ordered By: Naveed Vasquez on 02-15-2023 Manual differential comment Heath (Bld) [Interp] SCANNED [facility] Comment on above: NEUTROPHILIA NOTED Blood monocytes/100 leukocyt esOrdered By: Naveed Vasquez on 02-15-2023 Monocytes/100 WBC (Bld) 4.9 % 0-10 [facility] Blood platelet mean volumeOr dered By: Naveed Vasquez on 02-15-2023 Platelet mean volume (Bld) [Entitic vol] 8.8 fL 6.2-12.0 [facility] Determination of erythrocyte mean corpuscular volume (MCV)Ordered By: Naveed Vasquez on 02-15-2023 MCV (RBC) [Entitic vol] 79.9 fL 81-99 [facility] Glucose Glucometer (BldC) [M ass/Vol]Ordered By: Jackeline Akhtar on 02-15-2023 Glucose [Mass/Vol] 349 mg/dL 74-106 [facility] Comment on above: MANAGEMENT OF PATIEN T CARE PER NURSING PROTOCOL Hematocrit Auto (Bld) [Volum e fraction]Ordered By: Naveed Vasquez on 02-15-2023 Hematocrit (Bld) [Volume fraction] 44.8 % 37-47 [facility] Ketones Test strip Ql (U)Ord ered By: Naveed Vasquez on 02-15-2023 Ketones Ql (U) 150 mg/dl Negative [facility] Comment on above: CRITICAL VALUE *HCRI TICAL VALUE VERIFIED. CALLED TO Dyan Yu02/15/23 1736 Kimi Rice.RESULTS READ BACK BY SAME. Laboratory - Chemistry and C hemistry - challengeOrdered By: Naveed Vasquez on 02-15-2023 ALP [Catalytic activity/Vol] 151 U/L 45-117 [facility] ALT [Catalytic activity/Vol] 17 U/L 13-56 [facility] CO2 [Moles/Vol] 12.0 mmol/L 21.0-32.0 [facility] Globulin (S) [Mass/Vol] 4.0 g/dL 2.2-4.2 [facility] Lipase [Catalytic activity/Vol] U/L 13-75 [facility] Comment on above: Please note:LIPASE r evised reference range effective 22. New Lipase methodology. Expected to produce lower values than the previous assay method. NEW Reference Range: 13 - 75 U/L Urea nitrogen/Creatinine [Mass ratio] 36.9 mg/mg 10-20 [facility] Laboratory - Hematology and Cell countsOrdered By: Naveed Vasquez on 02-15-2023 Erythrocyte distribution width (RBC) [Entitic vol] 35.8 fL 35.1-43.9 [facility] Erythrocyte distribution width (RBC) [Ratio] 12.7 % 11.6-14.6 [facility] Immature granulocytes/100 WBC (Bld) 0.900 % 0.0-0.9 [facility] Comment on above: IG% - Immature Granu locytes (promyelocytes, myelocytes and metamyelocytes) > 1% indicates that a LEFT SHIFT is Present. MCH (RBC) [Entitic mass] 28.7 pg 27.0-32.0 [facility] Nucleated RBC/100 WBC (Bld) [Ratio] 0 % 0-5 [facility] MCHC Auto (RBC) [Mass/Vol]Or dered By: Naveed Vasquez on 02-15-2023 MCHC (RBC) [Mass/Vol] 35.9 g/dL 32-36 [facility] Mucus LM Ql (Urine sed)Order ed By: Naveed Vasquez on 02-15-2023 Mucus Ql (Urine sed) 0 SEEN /hpf [facility] Nitrite Test strip Ql (U)Ord ered By: Naveed Vasquez on 02-15-2023 Nitrite Ql (U) Negative Negative [facility] No Panel InformationOrdered By: Naveed Vasquez on 02-15-2023 Estimated Creatinine Clearance Calc 54.87 ml/min [facility] Estimated GFR (MDRD) Amer 55 mL/min >60 [facility] Comment on above: GFR Calc Estimated GFR (MDRD) Non-Af Amer 45 mL/min >60 [facility] Comment on above: Non- GFR Calc 4.0 g/dL 2.2-4.2 [facility] < 10 U/L 13-75 [facility] 151 U/L 45-117 [facility] 17 U/L 13-56 [facility] Platelets bldOrdered By: Caitlin Vasquez on 02-15-2023 Platelets (Bld) [#/Vol] 548 10*3/uL 150-450 [facility] Protein Test strip Ql (U)Ord ered By: Naveed Vasquez on 02-15-2023 Protein Ql (U) 30 mg/dl Negative [facility] Serum or plasma acetone edward urement (mass/volume)Ordered By: Naveed Vasquez on 02-15-2023 Acetone [Mass/Vol] LARGE NEG [facility] Serum or plasma albumin edward urement (mass/volume)Ordered By: Naveed Vasquez on 02-15-2023 Albumin [Mass/Vol] 3.9 g/dL 3.2-5.0 [facility] Serum or plasma albumin/glob ulin mass ratioOrdered By: Naveed Vasquez on 02-15-2023 Albumin/Globulin [Mass ratio] 1.0 {ratio} 0.9-2.4 [facility] Serum or plasma calcium edward urement (mass/volume)Ordered By: Naveed Vasquez on 02-15-2023 Calcium [Mass/Vol] 8.6 mg/dL 8.5-10.1 [facility] Serum or plasma creatinine m easurement (mass/volume)Ordered By: Naveed Vasquez on 02-15-2023 Creatinine [Mass/Vol] 1.49 mg/dL 0.55-1.02 [facility] Comment on above: The validity of the calculated GFR & GFRAA in patients over 70 years has not been determined. Clinical correlation is essential. Serum or plasma urea nitroge n measurement (mass/volume)Ordered By: Naveed Vasquez on 02-15-2023 Urea nitrogen [Mass/Vol] 55 mg/dL 7-18 [facility] Squamous epithelial cells de tection in urine sediment by light microscopyOrdered By: Naveed Vasquez on 02-15-2023 Epithelial cells.squamous LM Ql (Urine sed) 0-5 SEEN /hpf 5-10 [facility] Thin prep Papanicolaou smear with manual screeningOrdered By: Naveed Vasquez on 02-15-2023 Thin prep Papanicolaou smear with manual screening 13 U/L 15-37 [facility] Thin prep Papanicolaou smear with manual screening 29 5-15 [facility] Urine blood detectionOrdered By: Naveed Vasquez on 02-15-2023 RBC Ql (U) 50 /ul Negative [facility] RBC Ql (U) 0 SEEN /hpf 0-5 [facility] Urine clarityOrdered By: Caitlin Vasquez on 02-15-2023 Clarity (U) Clear Clear [facility] Urine color determinationOrd ered By: Naveed Vasquez on 02-15-2023 Color (U) Yellow Yellow [facility] Urine glucose detectionOrder ed By: Naveed Vasquez on 02-15-2023 Glucose Ql (U) 1000 mg/dl Normal [facility] Urine leukocyte esterase det ection by dipstickOrdered By: Naveed Vasquez on 02-15-2023 Leukocyte esterase Test strip Ql (U) Negative Negative [facility] Urine pHOrdered By: Naveed coronado on 02-15-2023 pH (U) 5.0 [pH] 5.0 - 8.0 [facility] Urine sediment bacteria coun t by microscopy (number/high power field)Ordered By: Naveed Vasquez on 02-15-2023 Bacteria LM.HPF (Urine sed) [#/Area] 0 /[HPF] None Seen [facility] Urine specific gravity measu rementOrdered By: Naveed Vasquez on 02-15-2023 Specific gravity (U) [Rel density] 1.025 1.002-1.030 [facility] Urobilinogen Auto test strip Ql (U)Ordered By: Naveed Vasquez on 02-15-2023 Urobilinogen Ql (U) Normal mg/dl Normal [facility] Laboratory - Hematology and Cell countson 01-13-2023 HbA1c (Bld) [Mass fraction] 9.8 % 4.2-6.3 [facility] No Panel Informationon 01-13 9.8 % 4.2-6.3 [facility] Glucose Glucometer (BldC) [M ass/Vol]Ordered By: Bianca Medina on 12-27-2022 Glucose [Mass/Vol] 115 mg/dL 74-106 [facility] Comment on above: MANAGEMENT OF PATIEN T CARE PER NURSING PROTOCOL Bacteria identified Cx Nom ( U)Ordered By: Rafat Cooney on 12-26-2022 Culture, urine Presumptive C albicans [facility] Basophil percentageOrdered B y: Bianca Medina on 12-26-2022 Basophil percentage 3.4 mmol/L 3.5-5.1 [facility] Potassium [Moles/Vol] 3.4 mmol/L 3.5-5.1 [facility] Basophil percentageOrdered B y: Rafat Cooney on 12-26-2022 Basophil percentage 0 SEEN /hpf 0-5 [facility] Basophil percentage 1.9 mg/dL 2.5-4.9 [facility] Basophil percentage 129 mg/dL 74-106 [facility] Basophil percentage 142 mmol/L 136-145 [facility] Basophil percentage 111 mmol/L 98-107 [facility] Chloride [Moles/Vol] 111 mmol/L 98-107 [facility] Glucose [Mass/Vol] 129 mg/dL 74-106 [facility] Comment on above: Fasting Glucose resu lt greater than or equal to 126 mg/dL suggests DIABETES MELLITUS per A.D.A. criteria. Sodium [Moles/Vol] 142 mmol/L 136-145 [facility] Bilirubin Test strip Ql (U)O rdered By: Rafat Cooney on 12-26-2022 Bilirubin Ql (U) Negative Negative [facility] Culture, urineOrdered By: Amaya Cooney on 12-26-2022 Bacteria identified Cx Nom (U) Presumptive C albicans [facility] Ketones Test strip Ql (U)Ord ered By: Rafat Cooney on 12-26-2022 Ketones Ql (U) 150 mg/dl Negative [facility] Comment on above: CRITICAL VALUE *HCRI TICAL VALUE VERIFIED. CALLED TO LILY RUIZ (ICU)12/26/22 1202 Dennis Merrill.RESULTS READ BACK BY SAME. Laboratory - Chemistry and C hemistry - challengeOrdered By: Rafat Cooney on 12-26-2022 CO2 [Moles/Vol] 24.0 mmol/L 21.0-32.0 [facility] Magnesium [Mass/Vol] 2.2 mg/dL 1.6-2.6 [facility] Urea nitrogen/Creatinine [Mass ratio] 8.2 mg/mg 10-20 [facility] Mucus LM Ql (Urine sed)Order ed By: Rafat Cooney on 12-26-2022 Mucus Ql (Urine sed) 0 SEEN /hpf [facility] Nitrite Test strip Ql (U)Ord ered By: Rafat Cooney on 12-26-2022 Nitrite Ql (U) Negative Negative [facility] No Panel InformationOrdered By: Rafat Cooney on 12-26-2022 Estimated Creatinine Clearance Calc 134.25 ml/min [facility] Estimated GFR (MDRD) Amer 154 mL/min >60 [facility] Comment on above: GFR Calc Estimated GFR (MDRD) Non-Af Amer 127 mL/min >60 [facility] Comment on above: Non- GFR Calc 127 mL/min >60 [facility] 154 mL/min >60 [facility] 134.25 ml/min [facility] 8.2 RATIO 10- [facility] 2.2 mg/dL 1.6-2.6 [facility] 24.0 mmol/L 21.0-32.0 [facility] Protein Test strip Ql (U)Ord ered By: Rafat Cooney on 12-26-2022 Protein Ql (U) Negative Negative [facility] Serum or plasma calcium edward urement (mass/volume)Ordered By: Rafat Cooney on 12-26-2022 Calcium [Mass/Vol] 8.2 mg/dL 8.5-10.1 [facility] Serum or plasma creatinine m easurement (mass/volume)Ordered By: Rafat Cooney on 12-26-2022 Creatinine [Mass/Vol] 0.61 mg/dL 0.55-1.02 [facility] Comment on above: The validity of the calculated GFR & GFRAA in patients over 70 years has not been determined. Clinical correlation is essential. Serum or plasma urea nitroge n measurement (mass/volume)Ordered By: Rafat Cooney on 12-26-2022 Urea nitrogen [Mass/Vol] 5 mg/dL 02-04 [facility] Squamous epithelial cells de tection in urine sediment by light microscopyOrdered By: Rafat Cooney on 12-26-2022 Epithelial cells.squamous LM Ql (Urine sed) 0 SEEN /hpf 5-10 [facility] Thin prep Papanicolaou smear with manual screeningOrdered By: Rafat Cooney on 12-26-2022 Thin prep Papanicolaou smear with manual screening 7 5-15 [facility] Urine blood detectionOrdered By: Rafat Cooney on 12-26-2022 RBC Ql (U) Negative Negative [facility] RBC Ql (U) 0 SEEN /hpf 0-5 [facility] Urine clarityOrdered By: Rafat Cooney on 12-26-2022 Clarity (U) Sl. Cloudy Clear [facility] Urine color determinationOrd ered By: Rafat Cooney on 12-26-2022 Color (U) Yellow Yellow [facility] Urine glucose detectionOrder ed By: Rafat Cooney on 12-26-2022 Glucose Ql (U) 1000 mg/dl Normal [facility] Urine leukocyte esterase det ection by dipstickOrdered By: Rafat Cooney on 12-26-2022 Leukocyte esterase Test strip Ql (U) Negative Negative [facility] Urine pHOrdered By: Rafat myers on 12-26-2022 pH (U) 6.5 [pH] 5.0 - 8.0 [facility] Urine sediment bacteria coun t by microscopy (number/high power field)Ordered By: Rafat Cooney on 12-26-2022 Bacteria LM.HPF (Urine sed) [#/Area] 0 /[HPF] None Seen [facility] Urine specific gravity measu rementOrdered By: Rafat Cooney on 12-26-2022 Specific gravity (U) [Rel density] 1.010 1.002-1.030 [facility] Urobilinogen Auto test strip Ql (U)Ordered By: Rafat Cooney on 12-26-2022 Urobilinogen Ql (U) Normal mg/dl Normal [facility] Absolute lymphocyte countOrd ered By: Antonio Vaca on 12-25-2022 Lymphocytes Auto (Unsp spec) [#/Vol] 1.10 10*3/uL 0.83-4.51 [facility] Basophil percentageOrdered B y: Antonio Vaca on 12-25-2022 Basophils (Bld) [#/Vol] 14.2 10*3/uL 4.4-11.0 [facility] Basophils (Bld) [#/Vol] 12.2 10*3/uL 2.0-7.7 [facility] Basophils/100 WBC (Bld) 0.1 % 0-1 [facility] Basophils/100 WBC (Bld) 85.5 % 47-70 [facility] Basophils/100 WBC (Bld) 0.0 % 0-5 [facility] Eosinophils/100 WBC (Bld) 0.0 % 0-5 [facility] Neutrophils (Bld) [#/Vol] 12.2 10*3/uL 2.0-7.7 [facility] Neutrophils/100 WBC (Bld) 85.5 % 47-70 [facility] WBC (Bld) [#/Vol] 14.2 10*3/uL 4.4-11.0 [facility] Beta hCG serum qualOrdered B y: Rafat Cooney on 12-25-2022 Beta HCG ( test) Ql Negative [facility] Blood erythrocytes count (nu mber/volume)Ordered By: Antonio Vaca on 12-25-2022 RBC (Bld) [#/Vol] 4.61 10*6/uL 4.2-5.4 [facility] Blood hemoglobin measurement (mass/volume)Ordered By: Antonio Vaca on 12-25-2022 Hemoglobin (Bld) [Mass/Vol] 13.0 g/dL 12.0-15.0 [facility] Blood lymphocytes/100 leukoc ytesOrdered By: Antonio Vaca on 12-25-2022 Lymphocytes/100 WBC (Bld) 7.7 % 19-41 [facility] Blood monocytes/100 leukocyt esOrdered By: Antonio Vaca on 12-25-2022 Monocytes/100 WBC (Bld) 6.3 % 0-10 [facility] Blood platelet mean volumeOr dered By: Antonio Vaca on 12-25-2022 Platelet mean volume (Bld) [Entitic vol] 8.9 fL 6.2-12.0 [facility] Determination of erythrocyte mean corpuscular volume (MCV)Ordered By: Atnonio Vaca on 12-25-2022 MCV (RBC) [Entitic vol] 81.3 fL 81-99 [facility] Comment on above: Delta: 86.1 on 12/24 Hematocrit Auto (Bld) [Volum e fraction]Ordered By: Antonio Vaca on 12-25-2022 Hematocrit (Bld) [Volume fraction] 37.5 % 37-47 [facility] Laboratory - Drug toxicology Ordered By: Rafat Cooney on 12-25-2022 Amphetamines Ql (U) Negative <1000 ng/mL [facility] Benzodiazepines Ql (U) Negative < 200 ng/mL [facility] Cannabinoids Screen Ql (U) Positive < 50 ng/mL [facility] Cocaine Ql (U) Negative < 300 ng/mL [facility] Opiates Ql (U) Negative < 300 ng/mL [facility] Laboratory - Hematology and Cell countsOrdered By: Antonio Vaca on 12-25-2022 Erythrocyte distribution width (RBC) [Entitic vol] 38.9 fL 35.1-43.9 [facility] Erythrocyte distribution width (RBC) [Ratio] 13.4 % 11.6-14.6 [facility] Immature granulocytes/100 WBC (Bld) 0.400 % 0.0-0.9 [facility] Comment on above: IG% - Immature Granu locytes (promyelocytes, myelocytes and metamyelocytes) > 1% indicates that a LEFT SHIFT is Present. MCH (RBC) [Entitic mass] 28.2 pg 27.0-32.0 [facility] Nucleated RBC/100 WBC (Bld) [Ratio] 0 % 0-5 [facility] MCHC Auto (RBC) [Mass/Vol]Or dered By: Antonio Vaca on 12-25-2022 MCHC (RBC) [Mass/Vol] 34.7 g/dL 32-36 [facility] Comment on above: Delta: 32.2 on 12/24 No Panel InformationOrdered By: Rafat Cooney on 12-25-2022 Ionized Calcium 5.1 mg/dL 4.5-5.6 [facility] Comment on above: Performed at: [facility] [id number] [place], [place] [id number] Director: Blade Villanueva PhD, Phone: [phone] 5.1 mg/dL 4.5-5.6 [facility] MDMA (Ecstasy) Screen Negative < 500 ng/mL [facility] Urine Barbiturates Screen Negative < 200 ng/mL [facility] Urine Drug Screen Comment [facility] Comment on above: CONFIRMATORY TESTING FOR ALL POSITIVE URINE DRUG SCREENRESULTS WILL ONLY BE SENT OUT UPON PHYSICIAN ORDER. The results of Urine Drug Screen methods provide only preliminary analytical test results. A more specific alternate chemical method must be used in order to obtain a confirmed analytical result. Gas chromatography/mass spectrometery (GC/MS) is the preferred confirmatory method. Clinical consideration and professional judgement should be applied to any drug of abuse test result, particularly whenpreliminary positive results are used. Urine Methadone Screen Negative < 300 ng/mL [facility] Negative < 300 ng/mL [facility] Positive < 50 ng/mL [facility] No Panel InformationOrdered By: Antonio Vaca on 12-25-2022 28.2 pg 27.0-32.0 [facility] 13.4 % 11.6-14.6 [facility] 38.9 fl 35.1-43.9 [facility] 0.400 % 0.0-0.9 [facility] 0 % 0-5 [facility] Platelets bldOrdered By: Nate Vcaa on 12-25-2022 Platelets (Bld) [#/Vol] 353 10*3/uL 150-450 [facility] Urine phencyclidine (PCP) de tectionOrdered By: Rafat Cooney on 12-25-2022 Phencyclidine Ql (U) Negative < 25 ng/mL [facility] Urine sediment unidentified crystal count by microscopy (number/high powered field)Ordered By: Rafat Cooney on 12-25-2022 Unidentified crystals LM.HPF (Urine sed) [#/Area] 3+ /hpf None Seen [facility] Comment on above: AMMONIUM BIURATE Urine sediment yeast count b y microscopy (number/high powered field)Ordered By: Rafat Cooney on 12-25-2022 Yeast LM.HPF (Urine sed) [#/Area] 1 /[HPF] None Seen [facility] Urine tricyclic antidepressa nt measurementOrdered By: Rafat Cooney on 12-25-2022 Tricyclic antidepressants (U) [Mass/Vol] Negative <1000 ng/mL [facility] Absolute lymphocyte countOrd ered By: Dr. Canada on 12-24-2022 Lymphocytes Auto (Unsp spec) [#/Vol] 0.73 10*3/uL 0.83-4.51 [facility] Basophil percentageOrdered B y: Rafat Cooney on 12-24-2022 Basophil percentage 8.1 g/dL 6.4-8.2 [facility] Basophil percentage 0.40 mg/dL 0.20-1.00 [facility] Bilirubin [Mass/Vol] 0.40 mg/dL 0.20-1.00 [facility] Comment on above: For patients on eltr ombopag therapy, use of [facility] TBIL is not recommended. Protein [Mass/Vol] 8.1 g/dL 6.4-8.2 [facility] Basophil percentageOrdered B y: Dr. Canada on 12-24-2022 Glucose [Mass/Vol] 604 mg/dL 74-106 [facility] Comment on above: Critical Result(s) C alled at: 04:06:03 12/24/2022 by: Aldo ARRIAGA RN (ED) Results read back by same.Glucose result greater than or equal to 200 mg/dLsuggests DIABETES MELLITUS per A.D.A. criteria. Basophil percentage 4.2 mg/dL 2.5-4.9 [facility] Basophils/100 WBC (Bld) 0.3 % 0-1 [facility] Bilirubin [Mass/Vol] 0.60 mg/dL 0.20-1.00 [facility] Comment on above: For patients on eltr ombopag therapy, use of [facility] TBIL is not recommended. Chloride [Moles/Vol] 97 mmol/L 98-107 [facility] Eosinophils/100 WBC (Bld) 0.0 % 0-5 [facility] Neutrophils (Bld) [#/Vol] 19.9 10*3/uL 2.0-7.7 [facility] Neutrophils/100 WBC (Bld) 93.0 % 47-70 [facility] Potassium [Moles/Vol] 4.3 mmol/L 3.5-5.1 [facility] Comment on above: Slight Hemolysis, Re sult may be falsely increased. Protein [Mass/Vol] 9.0 g/dL 6.4-8.2 [facility] Sodium [Moles/Vol] 134 mmol/L 136-145 [facility] WBC (Bld) [#/Vol] 21.4 10*3/uL 4.4-11.0 [facility] Basophil percentage 0 SEEN /hpf 0-5 [facility] Beta hCG serum qualOrdered B y: Dr. Canada on 12-24-2022 Beta HCG ( test) Ql Negative [facility] Bilirubin Test strip Ql (U)O rdered By: Dr. Canada on 12-24-2022 Bilirubin Ql (U) Negative Negative [facility] Comment on above: COLOR OF URINE MAY A FFECT DIPSTICK RESULTS.Previous reported result: 3 mg/dLEdited by: MIKE on 12/24/22:0056 AMENDED REPORT 12/24/22 0056 BILIRUBIN URINE previously reported as: 3 H mg/dL COLOR OF URINE MAY AFFECT DIPSTICK RESULTS. Blood erythrocytes count (nu mber/volume)Ordered By: Dr. Canada on 12-24-2022 RBC (Bld) [#/Vol] 5.62 10*6/uL 4.2-5.4 [facility] Blood hemoglobin measurement (mass/volume)Ordered By: Dr. Canada on 12-24-2022 Hemoglobin (Bld) [Mass/Vol] 15.6 g/dL 12.0-15.0 [facility] Blood lymphocytes/100 leukoc ytesOrdered By: Dr. Canada on 12-24-2022 Lymphocytes/100 WBC (Bld) 3.4 % 19-41 [facility] Blood monocytes/100 leukocyt esOrdered By: Dr. Canada on 12-24-2022 Monocytes/100 WBC (Bld) 2.4 % 0-10 [facility] Blood platelet adequacy dete ction by light microscopyOrdered By: Dr. Canada on 12-24-2022 Platelets LM Ql (Bld) ADEQUATE ADEQ [facility] Blood platelet mean volumeOr dered By: Dr. Canada on 12-24-2022 Platelet mean volume (Bld) [Entitic vol] 10.2 fL 6.2-12.0 [facility] Determination of erythrocyte mean corpuscular volume (MCV)Ordered By: Dr. Canada on 12-24-2022 MCV (RBC) [Entitic vol] 86.1 fL 81-99 [facility] Glucose Glucometer (BldC) [M ass/Vol]Ordered By: Dr. Canada on 12-24-2022 Glucose [Mass/Vol] 434 mg/dL 74-106 [facility] [facility] Comment on above: MANAGEMENT OF PATIEN T CARE PER NURSING PROTOCOL HCO3 (BldA) [Moles/Vol]Order ed By: Dr. Canada on 12-24-2022 HCO3 (Bld) [Moles/Vol] 6 mmol/L 22-26 [facility] Hematocrit Auto (Bld) [Volum e fraction]Ordered By: Dr. Canada on 12-24-2022 Hematocrit (Bld) [Volume fraction] 48.4 % 37-47 [facility] Hyaline casts LM.LPF (Urine sed) [#/Area]Ordered By: Dr. Canada on 12-24-2022 Hyaline casts (Urine sed) [#/Area] 10 /[LPF] 0-5 [facility] Ketones Test strip Ql (U)Ord ered By: Dr. Canada on 12-24-2022 Ketones Ql (U) 150 mg/dl Negative [facility] Comment on above: CRITICAL VALUE *HCRI TICAL VALUE VERIFIED. CALLED TO RALF BHAKTA RN (ED)12/24/2257 Aldo Armstrong.RESULTS READ BACK BY SAME . Previous reported result: 5 mg/dlEdited by: MIKE on 12/24/22:0058 AMENDED REPORT 12/24/2257 KETONE UR previously reported as: 5 H mg/dl Laboratory - Chemistry and C hemistry - challengeOrdered By: Rafat Cooney on 12-24-2022 ALP [Catalytic activity/Vol] 117 U/L 45-117 [facility] ALT [Catalytic activity/Vol] 14 U/L 13-56 [facility] Globulin (S) [Mass/Vol] 4.1 g/dL 2.2-4.2 [facility] Laboratory - Chemistry and C hemistry - challengeOrdered By: Dr. Canada on 12-24-2022 CO2 [Moles/Vol] 6 mmol/L -33 [facility] ALP [Catalytic activity/Vol] 130 U/L 45-117 [facility] ALT [Catalytic activity/Vol] 18 U/L [facility] CO2 [Moles/Vol] 10.0 mmol/L 21.0-32.0 [facility] Globulin (S) [Mass/Vol] 4.3 g/dL 2.2-4.2 [facility] Magnesium [Mass/Vol] 2.3 mg/dL 1.6-2.6 [facility] Comment on above: Slight Hemolysis, Re sult may be falsely increased. Urea nitrogen/Creatinine [Mass ratio] 9.8 mg/mg 10-20 [facility] Laboratory - Hematology and Cell countsOrdered By: Dr. Canada on 12-24-2022 Erythrocyte distribution width (RBC) [Entitic vol] 40.8 fL 35.1-43.9 [facility] Erythrocyte distribution width (RBC) [Ratio] 13.4 % 11.6-14.6 [facility] Immature granulocytes/100 WBC (Bld) 0.900 % 0.0-0.9 [facility] Comment on above: IG% - Immature Granu locytes (promyelocytes, myelocytes and metamyelocytes) > 1% indicates that a LEFT SHIFT is Present. MCH (RBC) [Entitic mass] 27.8 pg 27.0-32.0 [facility] Nucleated RBC/100 WBC (Bld) [Ratio] 0 % 0-5 [facility] MCHC Auto (RBC) [Mass/Vol]Or dered By: Dr. Canada on 12-24-2022 MCHC (RBC) [Mass/Vol] 32.2 g/dL 32-36 [facility] Mucus LM Ql (Urine sed)Order ed By: Dr. Canada on 12-24-2022 Mucus Ql (Urine sed) 1+ /hpf [facility] Nitrite Test strip Ql (U)Ord ered By: Dr. Canada on 12-24-2022 Nitrite Ql (U) Positive Negative [facility] No Panel InformationOrdered By: Rafat Cooney on 12-24-2022 4.1 g/dL 2.2-4.2 [facility] 117 U/L 45-117 [facility] 14 U/L 13-56 [facility] No Panel InformationOrdered By: Dr. Canada on 12-24-2022 Bed Mix Venous Bld PCO2 at Pat Temp 17.7 mmHg 41-51 [facility] Bld Gas Crit Called To/Read Back By Yes [facility] Blood Gas Specimen Type LUIS [facility] Venous Blood Base Excess -24 mmol/L -1.0-3.5 [facility] Estimated Creatinine Clearance Calc 55.74 ml/min [facility] Estimated GFR (MDRD) Amer 58 mL/min >60 [facility] Comment on above: GFR Calc Estimated GFR (MDRD) Non-Af Amer 48 mL/min >60 [facility] Comment on above: Non- GFR Calc No Panel InformationOrdered By: Danitza Canada on 12-24-2022 LUIS [facility] Yes [facility] 17.7 mmHg 41-51 [facility] -24 mmol/L -1.0-3.5 [facility] 80 % 50-70 [facility] 6 mmol/L 23-33 [facility] PO2 venousOrdered By: Dr. Vishal gutierrez on 12-24-2022 Oxygen (BldV) [Partial pressure] 57 mm[Hg] 25-40 [facility] Platelets bldOrdered By: Dr. Canada on 12-24-2022 Platelets (Bld) [#/Vol] TNP [facility] Comment on above: Test not performedPl ease note: For this sample, a platelet estimate is provided rather than a platelet count due to platelet clumping. Other parameters associated with this sample are not affected by platelet clumping. If a more accurate platelet count is required, a redraw of the patient will be necessary.Previous reported result: 366 K/jt2Mqpwee by: CAPRICE on 12/24/22:0121 AMENDED REPORT 12/24/22 0121 PLT previously reported as: 366 K/mm3 Protein Test strip Ql (U)Ord ered By: Dr. Canada on 12-24-2022 Protein Ql (U) 100 mg/dl Negative [facility] Serum or plasma acetone edward urement (mass/volume)Ordered By: Dr. Canada on 12-24-2022 Acetone [Mass/Vol] SMALL NEG [facility] Serum or plasma albumin edward urement (mass/volume)Ordered By: Rafat Cooney on 12-24-2022 Albumin [Mass/Vol] 4.0 g/dL 3.2-5.0 [facility] Serum or plasma albumin edward urement (mass/volume)Ordered By: Dr. Canada on 12-24-2022 Albumin [Mass/Vol] 4.7 g/dL 3.2-5.0 [facility] Serum or plasma albumin/glob ulin mass ratioOrdered By: Rafat Cooney on 12-24-2022 Albumin/Globulin [Mass ratio] 1.0 {ratio} 0.9-2.4 [facility] Serum or plasma albumin/glob ulin mass ratioOrdered By: Dr. Canada on 12-24-2022 Albumin/Globulin [Mass ratio] 1.1 {ratio} 0.9-2.4 [facility] Serum or plasma calcium edward urement (mass/volume)Ordered By: Dr. Canada on 12-24-2022 Calcium [Mass/Vol] 10.0 mg/dL 8.5-10.1 [facility] Serum or plasma creatinine m easurement (mass/volume)Ordered By: Dr. Canada on 12-24-2022 Creatinine [Mass/Vol] 1.43 mg/dL 0.55-1.02 [facility] Comment on above: The validity of the calculated GFR & GFRAA in patients over 70 years has not been determined. Clinical correlation is essential. Serum or plasma urea nitroge n measurement (mass/volume)Ordered By: Dr. Canada on 12-24-2022 Urea nitrogen [Mass/Vol] 14 mg/dL 7-18 [facility] Squamous epithelial cells de tection in urine sediment by light microscopyOrdered By: Dr. Canada on 12-24-2022 Epithelial cells.squamous LM Ql (Urine sed) 0 SEEN /hpf 5-10 [facility] Thin prep Papanicolaou smear with manual screeningOrdered By: Rafat Cooney on 12-24-2022 Thin prep Papanicolaou smear with manual screening 4 U/L [facility] Thin prep Papanicolaou smear with manual screeningOrdered By: Dr. Canada on 12-24-2022 Thin prep Papanicolaou smear with manual screening 12 U/L [facility] Comment on above: Slight Hemolysis, Re sult may be falsely increased. Thin prep Papanicolaou smear with manual screening 27 5-15 [facility] Urine blood detectionOrdered By: Dr. Canada on 12-24-2022 RBC Ql (U) 50 /ul Negative [facility] Comment on above: Previous reported re sult: 250 /ulEdited by: MIKE on 12/24/22:0056 AMENDED REPORT 12/24/22 0056 OCCULT BLOOD-UR previously reported as: 250 H /ul RBC Ql (U) 0-5 SEEN /hpf 0-5 [facility] Urine clarityOrdered By: Dr. Canada on 12-24-2022 Clarity (U) Clear Clear [facility] Urine color determinationOrd ered By: Dr. Canada on 12-24-2022 Color (U) Yellow Yellow [facility] Urine glucose detectionOrder ed By: Dr. Canada on 12-24-2022 Glucose Ql (U) 1000 mg/dl Normal [facility] Comment on above: Previous reported re sult: Normal mg/dlEdited by: MIKE on 12/24/22:0055 AMENDED REPORT 12/24/22 0055 GLUCOSE, UR previously reported as: Normal mg/dl Urine leukocyte esterase det ection by dipstickOrdered By: Dr. Canada on 12-24-2022 Leukocyte esterase Test strip Ql (U) Negative Negative [facility] Comment on above: Previous reported re sult: 500 /ulEdited by: MIKE on 12/24/22:0056 AMENDED REPORT 12/24/22 0056 LEUK ESTERASE previously reported as: 500 H /ul Urine pHOrdered By: Dr. Brodie de la vega on 12-24-2022 pH (U) 6.0 [pH] 5.0 - 8.0 [facility] Comment on above: Previous reported re sult: 5.0 Edited by: MIKE on 12/24/22:0056 AMENDED REPORT 12/24/22 0056 pH UR previously reported as: 5.0 Urine sediment bacteria coun t by microscopy (number/high power field)Ordered By: Dr. Canada on 12-24-2022 Bacteria LM.HPF (Urine sed) [#/Area] 1 /[HPF] None Seen [facility] Urine sediment fine granular cast count by microscopy (number/low power field)Ordered By: Rafat Cooney on 12-24-2022 Fine Granular Casts LM.LPF (Urine sed) [#/Area] 0-5 SEEN /lpf 0-5 [facility] Urine specific gravity measu rementOrdered By: Dr. Canada on 12-24-2022 Specific gravity (U) [Rel density] 1.025 1.002-1.030 [facility] Urobilinogen Auto test strip Ql (U)Ordered By: Dr. Canada on 12-24-2022 Urobilinogen Ql (U) Normal mg/dl Normal [facility] Comment on above: Previous reported re sult: 8 mg/dlEdited by: MIKE on 12/24/22:0056 AMENDED REPORT 12/24/22 005 UROBILI previously reported as: 8 H mg/dl Vital signsOrdered By: Dr. Dylan campbell on 12-24-2022 Oxygen saturation in Blood 80 % 50-70 [facility] pH measurementOrdered By: Dr Nickie Canada on 12-24-2022 pH (Unsp spec) 7.12 [pH] 7.32-7.42 [facility] Culture, urineOrdered By: Dr Nickie Akhtar on 11-24-2022 Bacteria identified Cx Nom (U) Positive [facility] Absolute lymphocyte countOrd ered By: Dr. Akhtar on 11-23-2022 Lymphocytes Auto (Unsp spec) [#/Vol] 2.32 10*3/uL 0.83-4.51 [facility] Basophil percentageOrdered B y: Dr. Akhtar on 11-23-2022 Basophil percentage 2.4 mg/dL 2.5-4.9 [facility] Basophils/100 WBC (Bld) 0.4 % 0-1 [facility] Chloride [Moles/Vol] 106 mmol/L 98-107 [facility] Eosinophils/100 WBC (Bld) 0.2 % 0-5 [facility] Glucose [Mass/Vol] 186 mg/dL 74-106 [facility] Comment on above: Fasting Glucose resu lt greater than or equal to 126 mg/dL suggests DIABETES MELLITUS per A.D.A. criteria. Neutrophils (Bld) [#/Vol] 9.8 10*3/uL 2.0-7.7 [facility] Neutrophils/100 WBC (Bld) 76.4 % 47-70 [facility] Potassium [Moles/Vol] 3.6 mmol/L 3.5-5.1 [facility] Sodium [Moles/Vol] 138 mmol/L 136-145 [facility] WBC (Bld) [#/Vol] 12.9 10*3/uL 4.4-11.0 [facility] Basophil percentageOrdered B y: Jackeline Akhtar on 11-23-2022 Basophil percentage 186 mg/dL 74-106 [facility] Basophil percentage 138 mmol/L 136-145 [facility] Basophil percentage 3.6 mmol/L 3.5-5.1 [facility] Basophil percentage 106 mmol/L 98-107 [facility] Basophils (Bld) [#/Vol] 12.9 10*3/uL 4.4-11.0 [facility] Basophils (Bld) [#/Vol] 9.8 10*3/uL 2.0-7.7 [facility] Basophils/100 WBC (Bld) 76.4 % 47-70 [facility] Basophils/100 WBC (Bld) 0.2 % 0-5 [facility] Blood erythrocytes count (nu mber/volume)Ordered By: Dr. Akhtar on 11-23-2022 RBC (Bld) [#/Vol] 4.23 10*6/uL 4.2-5.4 [facility] Blood hemoglobin measurement (mass/volume)Ordered By: Dr. Akhtar on 11-23-2022 Hemoglobin (Bld) [Mass/Vol] 11.9 g/dL 12.0-15.0 [facility] Blood lymphocytes/100 leukoc ytesOrdered By: Dr. Akhtar on 11-23-2022 Lymphocytes/100 WBC (Bld) 18.0 % 19-41 [facility] Blood monocytes/100 leukocyt esOrdered By: Dr. Akhtar on 11-23-2022 Monocytes/100 WBC (Bld) 4.7 % 0-10 [facility] Blood platelet adequacy dete ction by light microscopyOrdered By: Dr. Akhtar on 11-23-2022 Platelets LM Ql (Bld) ADEQUATE ADEQ [facility] Blood platelet mean volumeOr dered By: Dr. Akhtar on 11-23-2022 Platelet mean volume (Bld) [Entitic vol] 9.3 fL 6.2-12.0 [facility] Blood platelet morphology de termination (nominal result)Ordered By: Dr. Akhtar on 11-23-2022 Platelet morphology finding Nom (Bld) CLUMPED [facility] Determination of erythrocyte mean corpuscular volume (MCV)Ordered By: Dr. Akhtar on 11-23-2022 MCV (RBC) [Entitic vol] 84.4 fL 81-99 [facility] Glucose Glucometer (dC) [M ass/Vol]Ordered By: Dr. Akhtar on 11-23-2022 Glucose [Mass/Vol] 217 mg/dL 74-106 [facility] Comment on above: MANAGEMENT OF PATIEN T CARE PER NURSING PROTOCOL Hematocrit Auto (Bld) [Volum e fraction]Ordered By: Dr. Akhtar on 11-23-2022 Hematocrit (Bld) [Volume fraction] 35.7 % 37-47 [facility] Laboratory - Chemistry and C hemistry - challengeOrdered By: Dr. Akhtar on 11-23-2022 CO2 [Moles/Vol] 23.0 mmol/L 21.0-32.0 [facility] Magnesium [Mass/Vol] 2.2 mg/dL 1.6-2.6 [facility] Urea nitrogen/Creatinine [Mass ratio] 18.2 mg/mg 10-20 [facility] Laboratory - Hematology and Cell countsOrdered By: Dr. Akhtar on 11-23-2022 Erythrocyte distribution width (RBC) [Entitic vol] 38.9 fL 35.1-43.9 [facility] Erythrocyte distribution width (RBC) [Ratio] 12.7 % 11.6-14.6 [facility] Immature granulocytes/100 WBC (Bld) 0.300 % 0.0-0.9 [facility] Comment on above: IG% - Immature Granu locytes (promyelocytes, myelocytes and metamyelocytes) > 1% indicates that a LEFT SHIFT is Present. MCH (RBC) [Entitic mass] 28.1 pg 27.0-32.0 [facility] Nucleated RBC/100 WBC (Bld) [Ratio] 0 % 0-5 [facility] MCHC Auto (RBC) [Mass/Vol]Or dered By: Dr. Akhtar on 11-23-2022 MCHC (RBC) [Mass/Vol] 33.3 g/dL 32-36 [facility] No Panel InformationOrdered By: Dr. Akhtar on 11-23-2022 Estimated Creatinine Clearance Calc 119.10 ml/min [facility] Estimated GFR (MDRD) Amer 141 mL/min >60 [facility] Comment on above: GFR Calc Estimated GFR (MDRD) Non-Af Amer 116 mL/min >60 [facility] Comment on above: Non- GFR Calc No Panel InformationOrdered By: Jackeline Akhtar on 11-23-2022 28.1 pg 27.0-32.0 [facility] 12.7 % 11.6-14.6 [facility] 38.9 fl 35.1-43.9 [facility] 0.300 % 0.0-0.9 [facility] 0 % 0-5 [facility] 116 mL/min >60 [facility] 141 mL/min >60 [facility] 119.10 ml/min [facility] 18.2 RATIO 10-20 [facility] 2.2 mg/dL 1.6-2.6 [facility] 23.0 mmol/L 21.0-32.0 [facility] Platelets bldOrdered By: Dr. Akhtar on 11-23-2022 Platelets (Bld) [#/Vol] TNP [facility] Comment on above: Test not performedPr evious reported result: 284 K/bg6Oumbet by: CAPRICE on 11/23/22:0410 AMENDED REPORT 11/23/22409 PLT previously reported as: 284 K/mm3 Serum or plasma calcium edward urement (mass/volume)Ordered By: Dr. Akhtar on 11-23-2022 Calcium [Mass/Vol] 8.7 mg/dL 8.5-10.1 [facility] Serum or plasma creatinine m easurement (mass/volume)Ordered By: Dr. Akhtar on 11-23-2022 Creatinine [Mass/Vol] 0.66 mg/dL 0.55-1.02 [facility] Comment on above: The validity of the calculated GFR & GFRAA in patients over 70 years has not been determined. Clinical correlation is essential. Serum or plasma urea nitroge n measurement (mass/volume)Ordered By: Dr. Akhtar on 11-23-2022 Urea nitrogen [Mass/Vol] 12 mg/dL 7-18 [facility] Thin prep Papanicolaou smear with manual screeningOrdered By: Dr. Akhtar on 11-23-2022 Thin prep Papanicolaou smear with manual screening 9 5-15 [facility] Bacteria identified Cx Nom ( U)Ordered By: Jackeline Akhtar on 11-22-2022 Culture, urine Positive [facility] Basophil percentageOrdered B y: Naveed Vasquez on 11-22-2022 Basophil percentage 1.4 mmol/L 0.4-2.0 [facility] Lactate [Moles/Vol] 1.4 mmol/L 0.4-2.0 [facility] Culture, urineOrdered By: Rj Akhtar on 11-22-2022 Bacteria identified Cx Nom (U) Positive [facility] Laboratory - Chemistry and C hemistry - challengeOrdered By: Naveed Vasquez on 11-22-2022 HCG ( test) Ql (U) Negative [facility] Comment on above: Very dilute urine sp ecimens, as indicated by a low specificgravity, may not contain medical field representative levels of hCG. If is still suspected, a first morning urinespecimen should be collected 48 hours later and tested. No Panel InformationOrdered By: Naveed Vasquez on 11-22-2022 Negative [facility] Whole blood hemoglobin A1c/t otal hemoglobin ratio (mass fraction)Ordered By: Dr. Navarro on 11-22-2022 HbA1c (Bld) [Mass fraction] 9.9 % 3.8-5.6 [facility] Comment on above: Normal < 5.7 % Predi abetic 5.7 - 6.4 % Diabetic >or= 6.5 % Please note range changes. Absolute lymphocyte countOrd ered By: Naveed Vasquez on 11-21-2022 Lymphocytes Auto (Unsp spec) [#/Vol] 0.61 10*3/uL 0.83-4.51 [facility] Basophil percentageOrdered B y: Dr. Navarro on 11-21-2022 Basophil percentage 5.7 mg/dL 2.5-4.9 [facility] Basophil percentageOrdered B y: Naveed Vasquez on 11-21-2022 Basophil percentage 9.3 g/dL 6.4-8.2 [facility] Basophil percentage 0.80 mg/dL 0.20-1.00 [facility] Basophils/100 WBC (Bld) 0.3 % 0-1 [facility] Bilirubin [Mass/Vol] 0.80 mg/dL 0.20-1.00 [facility] Comment on above: For patients on eltr ombopag therapy, use of [facility] TBIL is not recommended. Chloride [Moles/Vol] 98 mmol/L 98-107 [facility] Eosinophils/100 WBC (Bld) 0.0 % 0-5 [facility] Glucose [Mass/Vol] 452 mg/dL 74-106 [facility] Comment on above: Critical Result(s) C alled at: 18:41:37 11/21/2022 by: Barb Conner. Results read back by same.Glucose result greater than or equal to 200 mg/dLsuggests DIABETES MELLITUS per A.D.A. criteria. Lactate [Moles/Vol] 3.4 mmol/L 0.4-2.0 [facility] Neutrophils (Bld) [#/Vol] 20.0 10*3/uL 2.0-7.7 [facility] Neutrophils/100 WBC (Bld) 95.2 % 47-70 [facility] Potassium [Moles/Vol] 4.0 mmol/L 3.5-5.1 [facility] Protein [Mass/Vol] 9.3 g/dL 6.4-8.2 [facility] Sodium [Moles/Vol] 137 mmol/L 136-145 [facility] WBC (Bld) [#/Vol] 21.0 10*3/uL 4.4-11.0 [facility] Basophil percentage 0 SEEN /hpf 0-5 [facility] Bilirubin Test strip Ql (U)O rdered By: Naveed Vasquez on 11-21-2022 Bilirubin Ql (U) Negative Negative [facility] Blood erythrocytes count (nu mber/volume)Ordered By: Naveed Vasquez on 11-21-2022 RBC (Bld) [#/Vol] 5.38 10*6/uL 4.2-5.4 [facility] Blood hemoglobin measurement (mass/volume)Ordered By: Naveed Vasquez on 11-21-2022 Hemoglobin (Bld) [Mass/Vol] 15.2 g/dL 12.0-15.0 [facility] Blood lymphocytes/100 leukoc ytesOrdered By: Naveed Vasquez on 11-21-2022 Lymphocytes/100 WBC (Bld) 2.9 % 19-41 [facility] Blood manual differential co mment interpretation (narrative result)Ordered By: Naveed Vasquez on 11-21-2022 Manual differential comment Heath (Bld) [Interp] SCANNED [facility] Comment on above: NEUTROPHILIA NOTED Blood monocytes/100 leukocyt esOrdered By: Naveed Vasquez on 11-21-2022 Monocytes/100 WBC (Bld) 1.0 % 0-10 [facility] Blood platelet mean volumeOr dered By: Naveed Vasquez on 11-21-2022 Platelet mean volume (Bld) [Entitic vol] 9.4 fL 6.2-12.0 [facility] Determination of erythrocyte mean corpuscular volume (MCV)Ordered By: Naveed Vasquez on 11-21-2022 MCV (RBC) [Entitic vol] 86.6 fL 81-99 [facility] Glucose Glucometer (BldC) [M ass/Vol]Ordered By: Dr. Ruiz on 11-21-2022 Glucose [Mass/Vol] 431 mg/dL 74-106 [facility] Comment on above: MANAGEMENT OF PATIEN T CARE PER NURSING PROTOCOL Hematocrit Auto (Bld) [Volum e fraction]Ordered By: Naveed Vasquez on 11-21-2022 Hematocrit (Bld) [Volume fraction] 46.6 % 37-47 [facility] Ketones Test strip Ql (U)Ord ered By: Naveed Vasquez on 11-21-2022 Ketones Ql (U) 150 mg/dl Negative [facility] Comment on above: CRITICAL VALUE *HCRI TICAL VALUE VERIFIED. CALLED TO Tab HERNÁNDEZ RN ICU11/22/22 0601 Andrea Acuña.RESULTS READ BACK BY SAME. Laboratory - Chemistry and C hemistry - challengeOrdered By: Naveed Vasquez on 11-21-2022 ALP [Catalytic activity/Vol] 110 U/L 45-117 [facility] ALT [Catalytic activity/Vol] 24 U/L 13-56 [facility] CO2 [Moles/Vol] 15.0 mmol/L 21.0-32.0 [facility] Globulin (S) [Mass/Vol] 4.3 g/dL 2.2-4.2 [facility] Lipase [Catalytic activity/Vol] 10 U/L 13-75 [facility] Comment on above: Please note:LIPASE r evised reference range effective 22. New Lipase methodology. Expected to produce lower values than the previous assay method. NEW Reference Range: 13 - 75 U/L Urea nitrogen/Creatinine [Mass ratio] 17.9 mg/mg 10-20 [facility] Laboratory - Chemistry and C hemistry - challengeOrdered By: Dr. Navarro on 11-21-2022 Magnesium [Mass/Vol] 2.1 mg/dL 1.6-2.6 [facility] Laboratory - Drug toxicology Ordered By: Dr. Navarro on 11-21-2022 Amphetamines Ql (U) Negative <1000 ng/mL [facility] Benzodiazepines Ql (U) Negative < 200 ng/mL [facility] Cannabinoids Screen Ql (U) Positive < 50 ng/mL [facility] Cocaine Ql (U) Negative < 300 ng/mL [facility] Opiates Ql (U) Negative < 300 ng/mL [facility] Laboratory - Hematology and Cell countsOrdered By: Naveed Vasquez on 11-21-2022 Erythrocyte distribution width (RBC) [Entitic vol] 39.8 fL 35.1-43.9 [facility] Erythrocyte distribution width (RBC) [Ratio] 12.8 % 11.6-14.6 [facility] Immature granulocytes/100 WBC (Bld) 0.600 % 0.0-0.9 [facility] Comment on above: IG% - Immature Granu locytes (promyelocytes, myelocytes and metamyelocytes) > 1% indicates that a LEFT SHIFT is Present. MCH (RBC) [Entitic mass] 28.3 pg 27.0-32.0 [facility] Nucleated RBC/100 WBC (Bld) [Ratio] 0 % 0-5 [facility] MCHC Auto (RBC) [Mass/Vol]Or dered By: Naveed Vasquez on 11-21-2022 MCHC (RBC) [Mass/Vol] 32.6 g/dL 32-36 [facility] Mucus LM Ql (Urine sed)Order ed By: Naveed Vaqsuez on 11-21-2022 Mucus Ql (Urine sed) 1+ /hpf [facility] Nitrite Test strip Ql (U)Ord ered By: Naveed Vasquez on 11-21-2022 Nitrite Ql (U) Positive Negative [facility] No Panel InformationOrdered By: Naveed Vasquez on 11-21-2022 Estimated Creatinine Clearance Calc 77.03 ml/min [facility] Estimated GFR (MDRD) Amer 77 mL/min >60 [facility] Comment on above: GFR Calc Estimated GFR (MDRD) Non-Af Amer 63 mL/min >60 [facility] Comment on above: Non- GFR Calc 4.3 g/dL 2.2-4.2 [facility] 10 U/L 13-75 [facility] 110 U/L 45-117 [facility] 24 U/L 13-56 [facility] No Panel InformationOrdered By: Dr. Navarro on 11-21-2022 MDMA (Ecstasy) Screen Negative < 500 ng/mL [facility] Urine Barbiturates Screen Negative < 200 ng/mL [facility] Urine Drug Screen Comment [facility] Comment on above: CONFIRMATORY TESTING FOR ALL POSITIVE URINE DRUG SCREENRESULTS WILL ONLY BE SENT OUT UPON PHYSICIAN ORDER. [facility]IST[facility] Urine Drug Screen methods provide only preliminaryanalytical test results. A more specific alternate chemicalmethod must be used in order to obtain a confirmedanalytical result. Gas chromatography/mass spectrometery(GC/MS) is the preferred confirmatory method. Clinicalconsideration and professional judgement should be appliedto any drug of abuse test result, particularly whenpreliminary positive results are used. URINE TCA TESTING MUST BE ORDERED SEPARATELY. USE TESTMNEMONIC: [facility] Urine Methadone Screen Negative < 300 ng/mL [facility] No Panel InformationOrdered By: Delia Navarro on 11-21-2022 [facility] Negative < 300 ng/mL [facility] Positive < 50 ng/mL [facility] Platelets bldOrdered By: Caitlin Vasquez on 11-21-2022 Platelets (Bld) [#/Vol] 440 10*3/uL 150-450 [facility] Protein Test strip Ql (U)Ord ered By: Naveed Vasquez on 11-21-2022 Protein Ql (U) 100 mg/dl Negative [facility] Serum or plasma acetone edward urement (mass/volume)Ordered By: Naveed Vasquez on 11-21-2022 Acetone [Mass/Vol] MODERATE NEG [facility] Serum or plasma albumin edward urement (mass/volume)Ordered By: Naveed Vasquez on 11-21-2022 Albumin [Mass/Vol] 5.0 g/dL 3.2-5.0 [facility] Serum or plasma albumin/glob ulin mass ratioOrdered By: Naveed Vasquez on 11-21-2022 Albumin/Globulin [Mass ratio] 1.2 {ratio} 0.9-2.4 [facility] Serum or plasma calcium edward urement (mass/volume)Ordered By: Naveed Vasquez on 11-21-2022 Calcium [Mass/Vol] 10.2 mg/dL 8.5-10.1 [facility] Serum or plasma creatinine m easurement (mass/volume)Ordered By: Naveed Vasquez on 11-21-2022 Creatinine [Mass/Vol] 1.12 mg/dL 0.55-1.02 [facility] Comment on above: The validity of the calculated GFR & GFRAA in patients over 70 years has not been determined. Clinical correlation is essential. Serum or plasma urea nitroge n measurement (mass/volume)Ordered By: Naveed Vasquez on 11-21-2022 Urea nitrogen [Mass/Vol] 20 mg/dL 7-18 [facility] Serum procalcitonin measurem entOrdered By: Dr. Navarro on 11-21-2022 Procalcitonin [Mass/Vol] 0.06 ng/mL 0.00-0.09 [facility] Comment on above: A procalcitonin (PCT ) level above 2.0 ng/mL on the first day of ICU admission is associated with a high risk for progression to severe sepsis and/or septic shock. A PCT level below 0.5 ng/mL on the first day of ICU admission is associated with a low risk for progression to severe and/or septic shock. Note: Concentrations <0.5 ng/mL do not exclude an infection on account of localized infections (without systemic signs) which can be associated with such low concentrations, or a systemic infection in its initial stages (<6 hours). Furthermore, increased procalcitonin can occur without infection. PCT concentrations between 0.5 and 2.0 ng/mL should be interpreted taking into account the patient's history. It is recommended to retest PCT within 6-24 hours if any concentrations <2 ng/mL are obtained. Squamous epithelial cells de tection in urine sediment by light microscopyOrdered By: Naveed Vasquez on 11-21-2022 Epithelial cells.squamous LM Ql (Urine sed) 0-5 SEEN /hpf 5-10 [facility] Thin prep Papanicolaou smear with manual screeningOrdered By: Naveed Vasquez on 11-21-2022 Thin prep Papanicolaou smear with manual screening 14 U/L 15-37 [facility] Thin prep Papanicolaou smear with manual screening 24 5-15 [facility] Urine blood detectionOrdered By: Naveed Vasquez on 11-21-2022 RBC Ql (U) 25 /ul Negative [facility] RBC Ql (U) 0-5 SEEN /hpf 0-5 [facility] Urine clarityOrdered By: Caitlin Vasquez on 11-21-2022 Clarity (U) Clear Clear [facility] Urine color determinationOrd ered By: Naveed Vasquez on 11-21-2022 Color (U) Yellow Yellow [facility] Urine glucose detectionOrder ed By: Naveed Vasquez on 11-21-2022 Glucose Ql (U) 1000 mg/dl Normal [facility] Urine leukocyte esterase det ection by dipstickOrdered By: Naveed Vasquez on 11-21-2022 Leukocyte esterase Test strip Ql (U) 25 /ul Negative [facility] Urine pHOrdered By: Naveed coronado on 11-21-2022 pH (U) 6.0 [pH] 5.0 - 8.0 [facility] Urine phencyclidine (PCP) de tectionOrdered By: Dr. Navarro on 11-21-2022 Phencyclidine Ql (U) Negative < 25 ng/mL [facility] Urine sediment bacteria coun t by microscopy (number/high power field)Ordered By: Naveed Vasquez on 11-21-2022 Bacteria LM.HPF (Urine sed) [#/Area] RARE /hpf None Seen [facility] Urine specific gravity measu rementOrdered By: Naveed Vasquez on 11-21-2022 Specific gravity (U) [Rel density] 1.020 1.002-1.030 [facility] Urobilinogen Auto test strip Ql (U)Ordered By: Naveed Vasquez on 11-21-2022 Urobilinogen Ql (U) Normal mg/dl Normal [facility] Laboratory - Hematology and Cell countson 09-26-2022 HbA1c (Bld) [Mass fraction] 10.8 % [facility] Absolute lymphocyte counton 07-23-2022 Lymphocytes Auto (Unsp spec) [#/Vol] 1.43 10*3/uL 0.83-4.51 [facility] Work Phone: Amorphous sediment detection in urine sediment by light microscopyon 07-23-2022 Amorphous sediment LM Ql (Urine sed) 2+ URATE [facility] Work Phone: Basophil percentageon 2022 Basophil percentage 0 SEEN /hpf 0-5 [facility] Work Phone: Basophils/100 WBC (Bld) 0.6 % 0-1 [facility] Work Phone: Chloride [Moles/Vol] 106 mmol/L 98-107 [facility] Work Phone: Eosinophils/100 WBC (Bld) 0.7 % 0-5 [facility] Work Phone: Glucose [Mass/Vol] 220 mg/dL 74-106 [facility] Work Phone: Comment on above: Glucose result great er than or equal to 200 mg/dLsuggests DIABETES MELLITUS per A.D.A. criteria. Neutrophils (Bld) [#/Vol] 6.4 10*3/uL 2.0-7.7 [facility] Work Phone: Neutrophils/100 WBC (Bld) 77.5 % 47-70 [facility] Work Phone: Potassium [Moles/Vol] 3.8 mmol/L 3.5-5.1 [facility] Work Phone: Sodium [Moles/Vol] 139 mmol/L 136-145 [facility] Work Phone: WBC (Bld) [#/Vol] 8.3 10*3/uL 4.4-11.0 [facility] Work Phone: Bilirubin Test strip Ql (U)o n 07-23-2022 Bilirubin Ql (U) Negative Negative [facility] Work Phone: Blood erythrocytes count (nu mber/volume)on 07-23-2022 RBC (Bld) [#/Vol] 4.92 10*6/uL 4.2-5.4 [facility] Work Phone: Blood hemoglobin measurement (mass/volume)on 07-23-2022 Hemoglobin (Bld) [Mass/Vol] 13.8 g/dL 12.0-15.0 [facility] Work Phone: Blood lymphocytes/100 leukoc yteson 07-23-2022 Lymphocytes/100 WBC (Bld) 17.3 % 19-41 [facility] Work Phone: Blood monocytes/100 leukocyt eson 07-23-2022 Monocytes/100 WBC (Bld) 3.7 % 0-10 [facility] Work Phone: Blood platelet mean volumeon 07-23-2022 Platelet mean volume (Bld) [Entitic vol] 8.8 fL 6.2-12.0 [facility] Work Phone: Determination of erythrocyte mean corpuscular volume (MCV)on 07-23-2022 MCV (RBC) [Entitic vol] 87.8 fL 81-99 [facility] Work Phone: Glucose Glucometer (BldC) [M ass/Vol]on 07-23-2022 Glucose [Mass/Vol] 161 mg/dL 74-106 [facility] Work Phone: Comment on above: MANAGEMENT OF PATIEN T CARE PER NURSING PROTOCOL Hematocrit Auto (Bld) [Volum e fraction]on 07-23-2022 Hematocrit (Bld) [Volume fraction] 43.2 % 37-47 [facility] Work Phone: Ketones Test strip Ql (U)on 07-23-2022 Ketones Ql (U) Negative Negative [facility] Work Phone: Laboratory - Chemistry and C hemistry - challengeon 07-23-2022 CO2 [Moles/Vol] 26.0 mmol/L 21.0-32.0 [facility] Work Phone: Urea nitrogen/Creatinine [Mass ratio] 21.7 mg/mg 10-20 [facility] Work Phone: Laboratory - Hematology and Cell countson 07-23-2022 Erythrocyte distribution width (RBC) [Entitic vol] 41.4 fL 35.1-43.9 [facility] Work Phone: Erythrocyte distribution width (RBC) [Ratio] 12.9 % 11.6-14.6 [facility] Work Phone: Immature granulocytes/100 WBC (Bld) 0.200 % 0.0-0.9 [facility] Work Phone: Comment on above: IG% - Immature Granu locytes (promyelocytes, myelocytes and metamyelocytes) > 1% indicates that a LEFT SHIFT is Present. MCH (RBC) [Entitic mass] 28.0 pg 27.0-32.0 [facility] Work Phone: Nucleated RBC/100 WBC (Bld) [Ratio] 0 % 0-5 [facility] Work Phone: MCHC Auto (RBC) [Mass/Vol]on 07-23-2022 MCHC (RBC) [Mass/Vol] 31.9 g/dL 32-36 [facility] Work Phone: Mucus LM Ql (Urine sed)on Mucus Ql (Urine sed) 0 SEEN /hpf [facility] Work Phone: Nitrite Test strip Ql (U)on 07-23-2022 Nitrite Ql (U) Negative Negative [facility] Work Phone: No Panel Informationon 07-23 Estimated Creatinine Clearance Calc 164.43 ml/min [facility] Work Phone: Estimated GFR (MDRD) Amer 191 mL/min >60 [facility] Work Phone: Comment on above: GFR Calc Estimated GFR (MDRD) Non-Af Amer 158 mL/min >60 [facility] Work Phone: Comment on above: Non- GFR Calc Platelets bldon 07-23-2022 Platelets (Bld) [#/Vol] 347 10*3/uL 150-450 [facility] Work Phone: Protein Test strip Ql (U)on 07-23-2022 Protein Ql (U) Negative Negative [facility] Work Phone: Serum or plasma calcium edward urement (mass/volume)on 07-23-2022 Calcium [Mass/Vol] 9.2 mg/dL 8.5-10.1 [facility] Work Phone: Serum or plasma creatinine m easurement (mass/volume)on 07-23-2022 Creatinine [Mass/Vol] 0.51 mg/dL 0.55-1.02 [facility] Work Phone: Comment on above: The validity of the calculated GFR & GFRAA in patients over 70 years has not been determined. Clinical correlation is essential. Serum or plasma urea nitroge n measurement (mass/volume)on 07-23-2022 Urea nitrogen [Mass/Vol] 11 mg/dL 7-18 [facility] Work Phone: Squamous epithelial cells de tection in urine sediment by light microscopyon 07-23-2022 Epithelial cells.squamous LM Ql (Urine sed) 0-5 SEEN /hpf 5-10 [facility] Work Phone: Thin prep Papanicolaou smear with manual screeningon 07-23-2022 Thin prep Papanicolaou smear with manual screening 7 5-15 [facility] Work Phone: Urine blood detectionon RBC Ql (U) Negative Negative [facility] Work Phone: RBC Ql (U) 0 SEEN /hpf 0-5 [facility] Work Phone: Urine clarityon 07-23-2022 Clarity (U) Sl. Cloudy Clear [facility] Work Phone: Urine color determinationon 07-23-2022 Color (U) Yellow Yellow [facility] Work Phone: Urine glucose detectionon Glucose Ql (U) 250 mg/dl Normal [facility] Work Phone: Urine leukocyte esterase det ection by dipstickon 07-23-2022 Leukocyte esterase Test strip Ql (U) Negative Negative [facility] Work Phone: Urine pHon 07-23-2022 pH (U) 7.0 [pH] 5.0 - 8.0 [facility] Work Phone: Urine sediment bacteria coun t by microscopy (number/high power field)on 07-23-2022 Bacteria LM.HPF (Urine sed) [#/Area] 0 /[HPF] None Seen [facility] Work Phone: Urine specific gravity measu rementon 07-23-2022 Specific gravity (U) [Rel density] 1.010 1.002-1.030 [facility] Work Phone: Urobilinogen Auto test strip Ql (U)on 07-23-2022 Urobilinogen Ql (U) Normal mg/dl Normal [facility] Work Phone: Basophil percentageon 2021 Bilirubin [Mass/Vol] 0.50 mg/dL 0.20-1.00 [facility] Work Phone: Comment on above: For patients on eltr ombopag therapy, use of [facility] TBIL is not recommended. Chloride [Moles/Vol] 107 mmol/L 98-107 [facility] Work Phone: Glucose [Mass/Vol] 119 mg/dL 74-106 [facility] Work Phone: Comment on above: Fasting Glucose resu lt from 100 to 125 mg/dL suggests IMPAIRED HOMEOSTASIS per A.D.A. criteria. Potassium [Moles/Vol] 3.7 mmol/L 3.5-5.1 [facility] Work Phone: Protein [Mass/Vol] 6.6 g/dL 6.4-8.2 [facility] Work Phone: Sodium [Moles/Vol] 142 mmol/L 136-145 [facility] Work Phone: Laboratory - Chemistry and C hemistry - challengeon 11-07-2021 ALP [Catalytic activity/Vol] 50 U/L 45-117 [facility] Work Phone: ALT [Catalytic activity/Vol] 19 U/L 13-56 [facility] Work Phone: CO2 [Moles/Vol] 27.0 mmol/L 21.0-32.0 [facility] Work Phone: Cobalamin (Vitamin B12) [Mass/Vol] 212 pg/mL 211-911 [facility] Work Phone: Globulin (S) [Mass/Vol] 2.9 g/dL 2.2-4.2 [facility] Work Phone: Magnesium [Mass/Vol] 1.7 mg/dL 1.6-2.6 [facility] Work Phone: Urea nitrogen/Creatinine [Mass ratio] 27.1 mg/mg 05-09 [facility] Work Phone: Laboratory - Hematology and Cell countson 11-07-2021 HbA1c (Bld) [Mass fraction] 6.4 % [facility] Work Phone: No Panel Informationon 11-07 Estimated GFR (MDRD) Amer 205 mL/min >60 [facility] Work Phone: Comment on above: GFR Calc Estimated GFR (MDRD) Non-Af Amer 170 mL/min >60 [facility] Work Phone: Comment on above: Non- GFR Calc Thyroid Stimulating Hormone (TSH) 1.94 uIU/mL 0.358-3.74 [facility] Work Phone: Vitamin D 25-Hydroxy 29.8 ng/mL [facility] Work Phone: Comment on above: Vitamin D 25(OH) Sta tus Range Deficiency <20 ng/mL (50nmol/L) Insufficiency 20 - 30 ng/mL (50 - 75 nmol/L) Sufficiency 30 - 100 ng/mL (75 - 250 nmol/L) Toxicity >100 ng/mL (>250 nmol/L) Serum or plasma albumin edward urement (mass/volume)on 11-07-2021 Albumin [Mass/Vol] 3.7 g/dL 3.2-5.0 [facility] Work Phone: Serum or plasma albumin/glob ulin mass ratioon 11-07-2021 Albumin/Globulin [Mass ratio] 1.3 {ratio} 0.9-2.4 [facility] Work Phone: Serum or plasma calcium edward urement (mass/volume)on 11-07-2021 Calcium [Mass/Vol] 8.6 mg/dL 8.5-10.1 [facility] Work Phone: Serum or plasma creatinine m easurement (mass/volume)on 11-07-2021 Creatinine [Mass/Vol] 0.48 mg/dL 0.55-1.02 [facility] Work Phone: Comment on above: The validity of the calculated GFR & GFRAA in patients over 70 years has not been determined. Clinical correlation is essential. Serum or plasma urea nitroge n measurement (mass/volume)on 11-07-2021 Urea nitrogen [Mass/Vol] 13 mg/dL 7-18 [facility] Work Phone: Thin prep Papanicolaou smear with manual screeningon 11-07-2021 Thin prep Papanicolaou smear with manual screening 12 U/L 15-37 [facility] Work Phone: Thin prep Papanicolaou smear with manual screening 8 5-15 [facility] Work Phone: Laboratory - Hematology and Cell countson 08-09-2021 HbA1c (Bld) [Mass fraction] 7.6 % [facility] Work Phone: EMERGENCY REPORTon 1 EMERGENCY REPORT [facility] EMERGENCY ROOM REPORT NAME ACCOUNT SEX AGE ADMIT DISCHARGE PT MED. RECORD# NUMBER DATE DATE TYPE THANG [id number] F 20 02/10/21 1 KALIE Hansen [id number] ROOM: [facility] DATE OF : 2000 DICTATING PHYSICIAN: Kashmir Sánchez CHIEF COMPLAINT: Nausea and vomiting with abdominal pain. HISTORY OF PRESENT ILLNESS: This is a 20-year-old female insulin-dependent diabetic who has fairly brittle diabetes. She indicates that she ate something that did not agree with her last evening and this morning she started having nausea associated with vomiting and upper abdominal pain. Throughout the day she has been nauseated with multiple episodes of vomiting. Her blood sugars have been running over 600. She has been taking her insulin but cannot keep anything down. She denies any fever but has had some chills. She complains of some body aches as well as fatigue. She indicates that this is typically what happens when she gets into DKA. Most recently she was admitted at [facility] for DKA. PAST MEDICAL HISTORY: insulin-dependent diabetes and asthma. SOCIAL HISTORY: She occasionally smokes. Does not drink excessively. REVIEW OF SYSTEMS: General: She complains of some chills and body aches but no fever. Skin: No rash. Mouth and pharynx is dry. Cardiovascular: No chest pain. Respiratory: No shortness of breath or cough. GI: Nausea, vomiting with abdominal pain. She has had some frequency but no dysuria. Musculoskeletal: Diffuse body aches. Neurologic: She has been alert with no mental status change but has had some generalized weakness. PHYSICAL EXAMINATION: Vital signs as noted. She is tachycardic at 102 with respirations of 16 and blood pressure is good. She is afebrile. Saturation is 97% on room air. General: She is alert, cooperative. Mildly uncomfortable secondary to the abdominal pain. Skin is warm and dry. Mouth and pharynx reveals dry mucous membranes. Neck is supple with no JVD. Cardiovascular examination: Tachycardic rhythm but regular. Respiratory: Lungs are clear. Abdomen is soft. She has some mild epigastric tenderness but no guarding, rebound or masses. Back shows no c.v.a. tenderness. Neurologic: Alert and oriented x3 and cooperative. DIAGNOSTIC DATA: Laboratories ordered include CBC, electrolytes, blood gas, lactate, ketones, urinalysis, CT of the abdomen and pelvis. Laboratory interpretation: The white count is normal at 8.4. The sodium is 136 with a Page 1 of 2 [facility] Emergency Room Report KALIE DESIR : 2000 potassium of 4.5. CO2 is low at 8.2. Glucose is 383. Creatinine is 0.8 with BUN of 15. LFTs are normal. Lipase is normal. Blood gas shows a pH of 7.11. The CT scan is pending at this time as well as the urine and test. EMERGENCY DEPARTMENT COURSE AND TREATMENT: (1) An IV was started. (2) She was given 2 L of normal saline. (3) Five units of regular insulin IV. (4) She was given morphine and Zofran for the nausea. The patient's care will be turned over to Dr. Sherman at this time pending the CT scan and other labs. The patient will more than likely need to be admitted at this time for DKA. Dictated By: Kashmir Sánchez MD 02/10/21 19:03 JOB #: [id number] Transcribed By: camilo 02/11/21 13:01 Electronically signed by: Kashmir Sánchez M.D. 02/13/21 13:03 Page 2 of 2 [facility] Emergency Room Report Normal [facility] HGB A1C [CCL]on 02-13-2021 Glucose [Mass/Vol] 315 mg/dL Normal [facility] Comment on above: Result Comment: eAG: (Estimated average glucose) is a calculated value from HgbA1c and is medical field representative of the average blood glucose level in the last 2-3 month period. [facility] [employer] [address] [place] [address] Reees Odell III, M.D. [id number] Performed By: #### [id number] #### [facility],[address] [place] [address] HbA1c (Bld) [Mass fraction] 12.6 % High 4.3-5.6 [facility] Comment on above: Result Comment: Amer [place] Diabetes Association guidelines indicate that patients with HgbA1c in the range 5.7-6.4% are at increased risk for development of diabetes, and intervention by lifestyle modification may be beneficial. HgbA1c greater or equal to 6.5% is considered diagnostic of diabetes. Performed By: #### [id number] #### [facility],[address] [place], [place] [id number] BMP with eGFR DAILYon 2020 AGE 20 years Normal [facility] Comment on above: Performed By: #### 2 [id number] #### [facility],[address] [place], [place] [id number] Anion gap [Moles/Vol] 11 mmol/L Normal 10 - 20 [facility] Comment on above: Performed By: #### 2 [id number] #### [facility],[address] [place] [id number] BMP with eGFR DAILY Normal [facility] Comment on above: Result Comment: BASI C METABOLIC PANEL Performed By: #### [id number] #### [facility],[address] [place] [address] Calcium [Mass/Vol] 7.8 mg/dL Low 8.5 - 10.1 [facility] Comment on above: Performed By: #### 2 [id number] #### [facility],[address] [place] [address] Chloride [Moles/Vol] 110 mmol/L High 98 - 107 [facility] Comment on above: Performed By: #### 2 [id number] #### [facility],[address] [place] [address] CO2 [Moles/Vol] 24.9 mmol/L Normal 21.0 - 32.0 [facility] Comment on above: Performed By: #### 2 [id number] #### [facility],[address] [place] [address] Creatinine [Mass/Vol] 0.47 mg/dL Low 0.55 - 1.02 [facility] Comment on above: Performed By: #### 2 [id number] #### [facility],[address] [place] [address] GFR/1.73 sq M.predicted among non-blacks MDRD (S/P/Bld) [Vol rate/Area] mL/min/{1.73_m2} Normal 60 - 999 [facility] Comment on above: Performed By: #### 2 [id number] #### [facility],[address] [place] [address] Result Comment: {LL] {II] {HH] ACCORDING TO THE NATIONAL KIDNEY DISEASE EDUCATION PROGRAM(NKDE), A NORMAL eGFR IS A VALUE GREATER THAN OR EQUAL TO 60 ML/MIN/1.73 SQ METERS. CHRONIC KIDNEY DISEASE: <60mL/MIN/1.73 SQ METERS KIDNEY FAILURE: <15mL/MIN/1.73 SQ METERS THIS TEST SHOULD ONLY BE USED FOR PATIENTS 18 YEARS OF AGE AND OLDER. Glucose [Mass/Vol] 115 mg/dL High 74 - 106 [facility] Comment on above: Performed By: #### 2 [id number] #### [facility],[address] [place] [address] Potassium [Moles/Vol] 3.2 mmol/L Low 3.5 - 5.1 [facility] Comment on above: Performed By: #### 2 [id number] #### [facility],[address] [place] [address] Sodium [Moles/Vol] 143 mmol/L Normal 136 - 145 [facility] Comment on above: Performed By: #### 2 [id number] #### [facility],[address] [place] [address] Urea nitrogen [Mass/Vol] 6 mg/dL Low 7 - 18 [facility] Comment on above: Performed By: #### 2 [id number] #### [facility],[address] [place] [id number] BMP with eGFRon 02-11-2021 AGE 20 years Normal [facility] Comment on above: Performed By: #### 2 [id number] #### [facility],[address] [place] [address] Anion gap [Moles/Vol] 20 mmol/L Normal 10 - 20 [facility] Comment on above: Performed By: #### 2 [id number] #### [facility],[address] [place] [id number] BMP with eGFR Normal [facility] Comment on above: Result Comment: BASI C METABOLIC PANEL Performed By: #### 2 [id number] #### [facility],[address] [place] [address] 29021 Calcium [Mass/Vol] 8.2 mg/dL Low 8.5 - 10.1 [facility] Comment on above: Performed By: #### 2 44273 #### [facility],[address] [place] [address] 97817 Chloride [Moles/Vol] 103 mmol/L Normal 98 - 107 [facility] Comment on above: Performed By: #### 2 14419 #### [facility],[address] [place], [place] [id number] CO2 [Moles/Vol] 19.1 mmol/L Low 21.0 - 32.0 [facility] Comment on above: Performed By: #### 2 23054 #### [facility],[address] [place], [place] [id number] Creatinine [Mass/Vol] 0.94 mg/dL Normal 0.55 - 1.02 [facility] Comment on above: Performed By: #### 2 66884 #### [facility],[address] [place] [address] GFR/1.73 sq M.predicted among non-blacks MDRD (S/P/Bld) [Vol rate/Area] mL/min/{1.73_m2} Normal 60 - 999 [facility] Comment on above: Performed By: #### 2 33138 #### [facility],[address] [place] [address] Result Comment: ACCO RDING TO THE NATIONAL KIDNEY DISEASE EDUCATION PROGRAM(NKDE), A NORMAL eGFR IS A VALUE GREATER THAN OR EQUAL TO 60 ML/MIN/1.73 SQ METERS. CHRONIC KIDNEY DISEASE: <60mL/MIN/1.73 SQ METERS KIDNEY FAILURE: <15mL/MIN/1.73 SQ METERS THIS TEST SHOULD ONLY BE USED FOR PATIENTS 18 YEARS OF AGE AND OLDER. Glucose [Mass/Vol] 289 mg/dL High 74 - 106 [facility] Comment on above: Performed By: #### 2 24619 #### [facility],[address] [place], [place] [id number] Potassium [Moles/Vol] 3.7 mmol/L Normal 3.5 - 5.1 [facility] Comment on above: Performed By: #### 2 36069 #### [facility],[address] [place] [address] 03977 Sodium [Moles/Vol] 138 mmol/L Normal 136 - 145 [facility] Comment on above: Performed By: #### 2 70213 #### [facility],[address] [place] [address] 53692 Urea nitrogen [Mass/Vol] 9 mg/dL Normal 7 - 18 [facility] Comment on above: Performed By: #### 2 65026 #### [facility],[address] [place] [address] 55160 AGE 20 years Normal [facility] Comment on above: Performed By: #### 2 88611 #### [facility],[address] [place] [address] 95113 Anion gap [Moles/Vol] 14 mmol/L Normal 10 - 20 [facility] Comment on above: Performed By: #### 2 81200 #### [facility],[address] [place] [address] 64426 BMP with eGFR Normal [facility] Comment on above: Result Comment: BASI C METABOLIC PANEL Performed By: #### 2 62014 #### [facility],[address] [place], [place] [id number] Calcium [Mass/Vol] 7.9 mg/dL Low 8.5 - 10.1 [facility] Comment on above: Performed By: #### 2 84895 #### [facility],[address] [place] [address] 97943 Chloride [Moles/Vol] 104 mmol/L Normal 98 - 107 [facility] Comment on above: Performed By: #### 2 69713 #### [facility],[address] [place] [address] 67286 CO2 [Moles/Vol] 19.4 mmol/L Low 21.0 - 32.0 [facility] Comment on above: Performed By: #### 2 92451 #### [facility],[address] [place] [address] 11696 Creatinine [Mass/Vol] 0.72 mg/dL Normal 0.55 - 1.02 [facility] Comment on above: Performed By: #### 2 21142 #### [place] [address] GFR/1.73 sq M.predicted among non-blacks MDRD (S/P/Bld) [Vol rate/Area] mL/min/{1.73_m2} Normal 60 - 999 [facility] Comment on above: Performed By: #### 2 27849 #### [facility],[address] [place] [address] Result Comment: ACCO RDING TO THE NATIONAL KIDNEY DISEASE EDUCATION PROGRAM(NKDE), A NORMAL eGFR IS A VALUE GREATER THAN OR EQUAL TO 60 ML/MIN/1.73 SQ METERS. CHRONIC KIDNEY DISEASE: <60mL/MIN/1.73 SQ METERS KIDNEY FAILURE: <15mL/MIN/1.73 SQ METERS THIS TEST SHOULD ONLY BE USED FOR PATIENTS 18 YEARS OF AGE AND OLDER. Glucose [Mass/Vol] 237 mg/dL High 74 - 106 [facility] Comment on above: Performed By: #### 2 64481 #### [place] [address] Potassium [Moles/Vol] 3.6 mmol/L Normal 3.5 - 5.1 [facility] Comment on above: Performed By: #### 2 26833 #### [place] [address] Sodium [Moles/Vol] 134 mmol/L Low 136 - 145 [facility] Comment on above: Performed By: #### 2 04179 #### [place] [address] Urea nitrogen [Mass/Vol] 7 mg/dL Normal 7 - 18 [facility] Comment on above: Performed By: #### 2 59661 #### [place] [id number] AGE 20 years Normal [facility] Comment on above: Performed By: #### 2 29548 #### [place] [address] Anion gap [Moles/Vol] 21 mmol/L High 10 - 20 [facility] Comment on above: Performed By: #### 2 50349 #### [facility],[address] [place] [address] 94233 BMP with eGFR Normal [facility] Comment on above: Result Comment: BASDarinel C METABOLIC PANEL Performed By: #### 2 19220 #### [facility],[address] [place] [address] 20157 Calcium [Mass/Vol] 8.3 mg/dL Low 8.5 - 10.1 [facility] Comment on above: Performed By: #### 2 09536 #### [facility],[address] [place] [address] 99505 Chloride [Moles/Vol] 103 mmol/L Normal 98 - 107 [facility] Comment on above: Performed By: #### 2 92193 #### [facility],[address] [place] [address] 76674 CO2 [Moles/Vol] 15.6 mmol/L Low 21.0 - 32.0 [facility] Comment on above: Performed By: #### 2 91216 #### [facility],[address] [place] [address] 14320 Creatinine [Mass/Vol] 0.75 mg/dL Normal 0.55 - 1.02 [facility] Comment on above: Performed By: #### 2 14081 #### [facility],[address] [place] [address] 49189 GFR/1.73 sq M.predicted among non-blacks MDRD (S/P/Bld) [Vol rate/Area] mL/min/{1.73_m2} Normal 60 - 999 [facility] Comment on above: Performed By: #### 2 16411 #### [facility],[address] [place] [address] 89481 Result Comment: ACCO RDING TO THE NATIONAL KIDNEY DISEASE EDUCATION PROGRAM(NKDE), A NORMAL eGFR IS A VALUE GREATER THAN OR EQUAL TO 60 ML/MIN/1.73 SQ METERS. CHRONIC KIDNEY DISEASE: <60mL/MIN/1.73 SQ METERS KIDNEY FAILURE: <15mL/MIN/1.73 SQ METERS THIS TEST SHOULD ONLY BE USED FOR PATIENTS 18 YEARS OF AGE AND OLDER. Glucose [Mass/Vol] 300 mg/dL High 74 - 106 [facility] Comment on above: Performed By: #### 2 06207 #### [facility],[address] [place] [address] 33709 Potassium [Moles/Vol] 3.6 mmol/L Normal 3.5 - 5.1 [facility] Comment on above: Performed By: #### 2 92930 #### [facility],[address] [place] [address] 45273 Sodium [Moles/Vol] 136 mmol/L Normal 136 - 145 [facility] Comment on above: Performed By: #### 2 82158 #### [facility],[address] [place] [address] 11984 Urea nitrogen [Mass/Vol] 8 mg/dL Normal 7 - 18 [facility] Comment on above: Performed By: #### 2 73108 #### [facility],[address] [place] [address] 10466 AGE 20 years Normal [facility] Comment on above: Performed By: #### 2 15770 #### [facility],[address] [place] [address] 45153 Anion gap [Moles/Vol] 20 mmol/L Normal 10 - 20 [facility] Comment on above: Performed By: #### 2 25762 #### [facility],[address] [place] [address] 07657 BMP with eGFR Normal [facility] Comment on above: Result Comment: BASI C METABOLIC PANEL Performed By: #### 2 78735 #### [facility],[address] [place] [address] 53913 Calcium [Mass/Vol] 8.6 mg/dL Normal 8.5 - 10.1 [facility] Comment on above: Performed By: #### 2 32338 #### [facility],[address] [place] [address] 51251 Chloride [Moles/Vol] 103 mmol/L Normal 98 - 107 [facility] Comment on above: Performed By: #### 2 40751 #### [facility],[address] [place] [address] 73505 CO2 [Moles/Vol] 17.3 mmol/L Low 21.0 - 32.0 [facility] Comment on above: Performed By: #### 2 03092 #### [facility],[address] [place] [address] 21338 Creatinine [Mass/Vol] 0.75 mg/dL Normal 0.55 - 1.02 [facility] Comment on above: Performed By: #### 2 76328 #### [facility],[address] [place] [address] 11991 GFR/1.73 sq M.predicted among non-blacks MDRD (S/P/Bld) [Vol rate/Area] mL/min/{1.73_m2} Normal 60 - 999 [facility] Comment on above: Performed By: #### 2 86981 #### [facility],[address] [place] [address] 80540 Result Comment: ACCO RDING TO THE NATIONAL KIDNEY DISEASE EDUCATION PROGRAM(NKDE), A NORMAL eGFR IS A VALUE GREATER THAN OR EQUAL TO 60 ML/MIN/1.73 SQ METERS. CHRONIC KIDNEY DISEASE: <60mL/MIN/1.73 SQ METERS KIDNEY FAILURE: <15mL/MIN/1.73 SQ METERS THIS TEST SHOULD ONLY BE USED FOR PATIENTS 18 YEARS OF AGE AND OLDER. Glucose [Mass/Vol] 96 mg/dL Normal 74 - 106 [facility] Comment on above: Performed By: #### 2 79615 #### [facility],[address] [place] [address] 23908 Potassium [Moles/Vol] 3.2 mmol/L Low 3.5 - 5.1 [facility] Comment on above: Performed By: #### 2 19229 #### [facility],[address] [place] [address] 13285 Sodium [Moles/Vol] 137 mmol/L Normal 136 - 145 [facility] Comment on above: Performed By: #### 2 92259 #### [facility],[address] [place] [address] 77580 Urea nitrogen [Mass/Vol] 9 mg/dL Normal 7 - 18 [facility] Comment on above: Performed By: #### 2 41437 #### [facility],[address] [place] [address] 81688 AGE 20 years Normal [facility] Comment on above: Performed By: #### 2 72941 #### [facility],[address] [place] [address] 88008 Anion gap [Moles/Vol] 25 mmol/L High 10 - 20 [facility] Comment on above: Performed By: #### 2 77733 #### [facility],[address] [place] [address] 42880 BMP with eGFR Normal [facility] Comment on above: Result Comment: BASI C METABOLIC PANEL Performed By: #### 2 94509 #### [facility],[address] [place] [address] 44872 Calcium [Mass/Vol] 8.5 mg/dL Normal 8.5 - 10.1 [facility] Comment on above: Performed By: #### 2 42263 #### [facility],[address] [place] [address] 56084 Chloride [Moles/Vol] 103 mmol/L Normal 98 - 107 [facility] Comment on above: Performed By: #### 2 01877 #### [facility],[address] [place] [address] 17040 CO2 [Moles/Vol] 11.3 mmol/L Low 21.0 - 32.0 [facility] Comment on above: Performed By: #### 2 68979 #### [facility],[address] [place], [place] [address] Creatinine [Mass/Vol] 0.76 mg/dL Normal 0.55 - 1.02 [facility] Comment on above: Performed By: #### 2 76682 #### [facility],[address] [place] [address] 62277 GFR/1.73 sq M.predicted among non-blacks MDRD (S/P/Bld) [Vol rate/Area] mL/min/{1.73_m2} Normal 60 - 999 [facility] Comment on above: Performed By: #### 2 38912 #### [facility],[address] [place] [address] Result Comment: ACCO RDING TO THE NATIONAL KIDNEY DISEASE EDUCATION PROGRAM(NKDE), A NORMAL eGFR IS A VALUE GREATER THAN OR EQUAL TO 60 ML/MIN/1.73 SQ METERS. CHRONIC KIDNEY DISEASE: <60mL/MIN/1.73 SQ METERS KIDNEY FAILURE: <15mL/MIN/1.73 SQ METERS THIS TEST SHOULD ONLY BE USED FOR PATIENTS 18 YEARS OF AGE AND OLDER. Glucose [Mass/Vol] 157 mg/dL High 74 - 106 [facility] Comment on above: Performed By: #### 2 68420 #### [facility],[address] [place], [place] [id number] Potassium [Moles/Vol] 3.7 mmol/L Normal 3.5 - 5.1 [facility] Comment on above: Performed By: #### 2 45757 #### [facility],[address] [place] [address] 29983 Sodium [Moles/Vol] 136 mmol/L Normal 136 - 145 [facility] Comment on above: Performed By: #### 2 19068 #### [facility],[address] [place] [address] 48099 Urea nitrogen [Mass/Vol] 9 mg/dL Normal 7 - 18 [facility] Comment on above: Performed By: #### 2 36533 #### [facility],[address] [place] [address] 68161 BMP with eGFR DAILYon 2020 AGE 20 years Normal [facility] Comment on above: Performed By: #### 2 10960 #### [facility],[address] [place] [address] 39009 Anion gap [Moles/Vol] 17 mmol/L Normal 10 - 20 [facility] Comment on above: Performed By: #### 2 91026 #### [facility],[address] [place] [address] 22179 BMP with eGFR DAILY Normal [facility] Comment on above: Result Comment: BASI C METABOLIC PANEL Performed By: #### 2 57951 #### [facility],[address] [place] [address] 04427 Calcium [Mass/Vol] 8.7 mg/dL Normal 8.5 - 10.1 [facility] Comment on above: Performed By: #### 2 14354 #### [facility],[address] [place] [address] 15315 Chloride [Moles/Vol] 103 mmol/L Normal 98 - 107 [facility] Comment on above: Performed By: #### 2 12755 #### [facility],[address] [place] [address] 64822 CO2 [Moles/Vol] 18.7 mmol/L Low 21.0 - 32.0 [facility] Comment on above: Performed By: #### 2 52808 #### [facility],[address] [place] [address] 02803 Creatinine [Mass/Vol] 0.77 mg/dL Normal 0.55 - 1.02 [facility] Comment on above: Performed By: #### 2 42703 #### [facility],[address] [place] [address] 29675 GFR/1.73 sq M.predicted among non-blacks MDRD (S/P/Bld) [Vol rate/Area] mL/min/{1.73_m2} Normal 60 - 999 [facility] Comment on above: Performed By: #### 2 22047 #### [facility],[address] [place] [address] 96164 Result Comment: {LL] {II] {HH] ACCORDING TO THE NATIONAL KIDNEY DISEASE EDUCATION PROGRAM(NKDE), A NORMAL eGFR IS A VALUE GREATER THAN OR EQUAL TO 60 ML/MIN/1.73 SQ METERS. CHRONIC KIDNEY DISEASE: <60mL/MIN/1.73 SQ METERS KIDNEY FAILURE: <15mL/MIN/1.73 SQ METERS THIS TEST SHOULD ONLY BE USED FOR PATIENTS 18 YEARS OF AGE AND OLDER. Glucose [Mass/Vol] 96 mg/dL Normal 74 - 106 [facility] Comment on above: Performed By: #### 2 52127 #### [facility],[address] [place], [place] [id number] Potassium [Moles/Vol] 2.9 mmol/L Critically low 3.5 - 5.1 [facility] Comment on above: Result Comment: { CA LLED TO LOI BY [facility] @ 0845 { READ BACK BY LOI RA 0845 Performed By: #### 2 40521 #### [facility],[address] [place] [address] 87252 Sodium [Moles/Vol] 136 mmol/L Normal 136 - 145 [facility] Comment on above: Performed By: #### 2 36685 #### [facility],[address] [place] [address] 89769 Urea nitrogen [Mass/Vol] 8 mg/dL Normal 7 - 18 [facility] Comment on above: Performed By: #### 2 79925 #### [facility],[address] [place] [address] 52721 EMERGENCY REPORTon 1 EMERGENCY REPORT [facility] EMERGENCY ROOM REPORT NAME ACCOUNT SEX AGE ADMIT DISCHARGE PT MED. RECORD# NUMBER DATE DATE TYPE THANG [id number] F 02/10/21 1 KALIE Hansen [id number] ROOM: [facility] DATE OF : 2000 DICTATING PHYSICIAN: Jackeline Sherman CHIEF COMPLAINT/HISTORY OF PRESENT ILLNESS: This is a 20-year-old white female who states that she forgot to take her overnight insulin. She started to develop some vomiting and abdominal pain through the night last night. She woke up vomiting and having abdominal pain this morning. Checked her blood sugar. It was greater than 600 so she presents here for an evaluation. She presently rates her abdominal pain as an 8 on a severity scale of 1 to 10. Describes it as sharp in nature. Mildly worse with movement. 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 She has a history of asthma and she did have an incident of hepatitis A several years ago from drinking contaminated water. PAST SURGICAL HISTORY: Tympanostomy tubes. ALLERGIES: No known drug allergies. SOCIAL HISTORY: She is not a smoker. Denies use of alcohol or illicit drugs. Lives at home with family. PCP is [facility]. She also sees an body art technician in [place] but she cannot remember the doctor's name. REVIEW OF SYSTEMS: Does admit to abdominal pain with associated nausea and vomiting. Denies any diarrhea, constipation, melena, hematochezia. She denies any chest pain, shortness of breath, cough, sputum wheezing. Does admit to some urinary frequency. Denies any dysuria or hematuria. Does complain of a mild diffuse generalized headache. Denies any numbness or unsteady gait but does admit to some diffuse generalized weakness and fatigued. Denies any neck or back pain, joint pain, skin rashes or swelling. Further review of systems negative. PHYSICAL EXAMINATION: Blood pressure 129/75, pulse 102, respirations 16, temperature 98.1. Pulse oximetry 97%. Weight 130 pounds. The patient is alert and oriented x3. Presently appears in no acute distress. She is pleasant and cooperative. Smiling. States she feels better after the IV fluids and the [address] insulin that Dr. Sánchez gave her. HEENT: Head appears atraumatic. Pupils are equal and reactive to light. Red reflex intact bilaterally. Extraocular muscles intact. No conjunctival injection. Nose exhibits no rhinorrhea or epistasis. Mouth: Mucous membranes are dry. No pharyngeal erythema. Uvula is midline and elevates. Neck is supple. Trachea midline. No JVD or Page 1 of 3 [facility] Room Report KALIE DESIR : 2000 lymphadenopathy. No posterior cervical tenderness. No nuchal rigidity. Lungs are clear to auscultation bilaterally. No adventitious sounds are noted. No accessory muscle use noted. CVS: Heart rate and rhythm is regular. Mildly tachycardic. No murmur noted. Abdomen is soft with some mild diffuse tenderness times all 4 quadrants. Bowel sounds are present x4 quadrants and somewhat hypoactive. She does exhibit some voluntary guarding but no involuntary guarding. No abdominal distention. Back exhibits no midline or paraspinal region tenderness. No increased paraspinal muscle rigidity. Negative Ruiz sign. Extremities: No edema or cyanosis. Peripheral pulses are intact. No motor or sensory deficits are noted. 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 Skin is warm and dry. No diaphoresis or rash. Neurologic examination shows the patient to be alert and oriented x4. No motor or sensory deficits are noted. Normal speech. Patient does make eye contact. Speaks in full sentences. DIAGNOSTIC DATA: White count was 8.4. Hemoglobin 16.3. Hematocrit 48.1. Platelet count was 622,000. Sodium 136, potassium 4.5, chloride 98, CO2 was low at 8.2. BUN 15, creatinine 0.88. Glucose was 383. AST is 21. ALT is 35. Alk phos 117. Total bilirubin 0.8. Lipase was normal at 64. Lactate was normal at 2.0. Serum ketones were moderate. Anion gap was elevated at 34. Urinalysis showed 1000 of glucose with 150 ketones. Microscopic was not indicated. Specific gravity 1.025. Her urine test did come back negative. Blood gas showed a pH of 7.17, pCO2 of 18, pO2 of 46, bicarb was 7, O2 saturation 71%. This was a venous gas but it did demonstrate that she did have metabolic acidosis. EMERGENCY DEPARTMENT COURSE AND TREATMENT: We did recheck her Accu-Chek bedside blood sugar at 2102 hours. It was 300 and clinically the patient is looking much better but since she still acidotic I placed her on insulin drip at 5 units an hour. I spoke with Dr. Manley. He was agreeable to admit the patient here. The patient would prefer to stay here as oppose to go to [place]. Certainly at this point at the bedside she clinically looks very stable and I feel that she is safe to admit here. She is agreeable. DIAGNOSIS: Diabetic ketoacidosis. Dictated By: Jackeline Sherman, 02/10/21 (more content not included)... Normal [facility] LIPID PROFILEon 02-11-2021 Cholesterol [Mass/Vol] 182 mg/dL Normal 0 - 240 [facility] Comment on above: Performed By: #### 2 61592 #### [facility],[address] [place] [address] 33459 Cholesterol in HDL [Mass/Vol] 60 mg/dL Normal 40 - 60 [facility] Comment on above: Performed By: #### 2 89511 #### [facility],[address] [place] [address] 09826 Cholesterol in LDL [Mass/Vol] 99 mg/dL Normal 0 - 129 [facility] Comment on above: Performed By: #### 2 29342 #### [facility],[address] [place] [address] 74388 Cholesterol.total/Cho lesterol in HDL [Mass ratio] 3.0 {ratio} Normal 0.0 - 5.0 [facility] Comment on above: Performed By: #### 2 87132 #### [facility],[address] [place] [address] 42744 Lipid 1996 panel Normal [facility] Comment on above: Result Comment: LIPI D PROFILE Performed By: #### 2 96221 #### [facility],[address] [place] [address] 66335 Triglyceride [Mass/Vol] 116 mg/dL Normal 0 - 150 [facility] Comment on above: Performed By: #### 2 05325 #### [facility],[address] [place] [address] 71170 ARTERIAL BLOOD GAS ANALYSISo n 02-10-2021 ALLENS TEST + Normal [facility] Comment on above: Result Comment: { TI ME CALLED . Performed By: #### 2 16267 #### [facility],[address] [place] [address] 70932 ARTERIAL BLOOD GAS ANALYSIS Normal [facility] Comment on above: Result Comment: ALEXSANDRA RIAL BLOOD GAS Performed By: #### 2 56654 #### [facility],[address] [place] [address] BE -22 Low -2 - 3 [facility] Comment on above: Performed By: #### 2 37422 #### [facility],[address] [place] [address] HCO3 (Bld) [Moles/Vol] 7 mmol/L Critically low 20 - 24 [facility] Comment on above: Result Comment: { CA LLED TO DR. SÁNCHEZ 1844 { READ BACK BY DR. SÁNCHEZ Performed By: #### 2 45472 #### [facility],[address] [place] [address] Heart rate 131 /min Normal [facility] Comment on above: Performed By: #### 2 59817 #### [facility],[address] [place] [address] MODALITY RA Normal [facility] Comment on above: Performed By: #### 2 10062 #### [facility],[address] [place] [address] PCO2 18 mm Hg Critically low 35 - 45 [facility] Comment on above: Result Comment: { CA LLED TO DR. SÁNCHEZ Jim SLY { READ BACK BY DR. SÁNCHEZ Performed By: #### 2 41089 #### [facility],[address] [place] [address] pH (Bld) 7.17 [pH] Critically low 7.35 - 7.45 [facility] Comment on above: Result Comment: { CA LLED TO DR. PATRIA Conrad SLY ROBYN { READ BACK BY DR. SÁNCHEZ Performed By: #### 2 33798 #### [facility],[address] [place] [address] PO2 46 mm Hg Critically low 80 - 105 [facility] Comment on above: Result Comment: { CA LLED TO DR. SÁNCHEZ 1844 { READ BACK BY DR. PATRIA Conrad Performed By: #### 2 76321 #### [facility],[address] [place] [address] 18930 SAMPLE SITE LR Normal [facility] Comment on above: Performed By: #### 2 33000 #### [facility],[address] [place] [address] 73627 SaO2 71 Critically low 95 - 98 [facility] Comment on above: Result Comment: { CA LLED TO DR. PATRIA Conrad { READ BACK BY DR. SÁNCHEZ TIME RESULT CALLED _[id number] 02/10/21.1840.JHV. { FIO2/LPM .21 Performed By: #### 2 77414 #### [facility],[address] [place] [address] 79577 TOTAL RR 28 Normal [facility] Comment on above: Performed By: #### 2 70636 #### [facility],[address] [place] [address] 38421 VENT N/A Normal [facility] Comment on above: Performed By: #### 2 36066 #### [facility],[address] [place] [address] 58813 CBC + DIFFon 02-10-2021 Baso # 0.00 x10EE3/UL Normal 0.00 - 0.10 [facility] Comment on above: Performed By: #### 2 69071 #### [facility],[address] [place] [address] 84968 Basophils/100 WBC (Bld) 0.6 % Normal 0.0 - 2.0 [facility] Comment on above: Performed By: #### 2 49764 #### [facility],[address] [place] [address] 57176 CBC + DIFF Normal [facility] Comment on above: Result Comment: CBC- COMPLETE BLOOD COUNT Performed By: #### 2 85521 #### [facility],[address] [place] [address] 16823 EO # 0.00 x10EE3/UL Normal 0.00 - 0.50 [facility] Comment on above: Performed By: #### 2 45218 #### [facility],[address] [place] [address]3844 Eosinophils/100 WBC (Bld) 0.1 % Normal 0.0 - 7.0 [facility] Comment on above: Performed By: #### 2 12109 #### [facility],[address] [place] [address] Erythrocyte distribution width (RBC) [Ratio] 13.7 % Normal 12.0 - 15.6 [facility] Comment on above: Performed By: #### 2 55414 #### [facility],[address] [place] [address] Hematocrit (Bld) [Volume fraction] 48.1 % High 34.0 - 46.0 [facility] Comment on above: Performed By: #### 2 42400 #### [facility],[address] [place] [address] 54936 Hemoglobin (Bld) [Mass/Vol] 16.3 g/dL High 12.0 - 16.0 [facility] Comment on above: Performed By: #### 2 70695 #### [facility],[address] [place] [address] 16542 Lymph # 1.60 x10EE3/UL Normal 0.80 - 2.80 [facility] Comment on above: Performed By: #### 2 66521 #### [address] [address] Lymphocytes/100 WBC (Bld) 18.6 % Low 20.0 - 45.0 [facility] Comment on above: Performed By: #### 2 27285 #### [facility],[address] [place] [address] 90459 MANUAL DIFF N/A Normal [facility] Comment on above: Performed By: #### 2 57670 #### [facility],[address] [place] [address] MCH (RBC) [Entitic mass] 30 pg Normal 27 - 33 [facility] Comment on above: Performed By: #### 2 60046 #### [facility],[address] [place] [address] MCHC 34 X10 3 Normal 32 - 36 [facility] Comment on above: Performed By: #### 2 31105 #### [facility],[address] [place] [address] MCV (RBC) [Entitic vol] 88 fL Normal 80 - 99 [facility] Comment on above: Performed By: #### 2 43284 #### [facility],[address] [place] [address] [place] # 0.50 x10EE3/UL Normal 0.20 - 1.00 [facility] Comment on above: Performed By: #### 2 27283 #### [facility],[address] [place] [address] 46961 MONOS % 5.4 % Normal 0.0 - 10.0 [facility] Comment on above: Performed By: #### 2 50387 #### [facility],[address] [place] [address] Morphology Heath (Bld) [Interp] N/A Normal [facility] Comment on above: Result Comment: {CD] Performed By: #### 2 03498 #### [facility],[address] [place] [address] Neut # 6.30 x10EE3/UL Normal 1.50 - 7.10 [facility] Comment on above: Performed By: #### 2 64179 #### [facility],[address] [place] [address] Neutrophils/100 WBC (Bld) 75.3 % Normal 46.0 - 76.0 [facility] Comment on above: Performed By: #### 2 45335 #### [facility],[address] [place] [address] 05515 PLATELET 622 x10EE3/UL High 150 - 450 [facility] Comment on above: Performed By: #### 2 94042 #### [facility],[address] [place] [address] 50796 Platelet mean volume (Bld) [Entitic vol] 7.2 fL Normal 6.6 - 10.5 [facility] Comment on above: Result Comment: AUTO MATED DIFFERENTIAL Performed By: #### 2 54145 #### [facility],[address] [place] [address] 89701 RBC 5.45 x 10EE6/UL High 4.10 - 5.30 [facility] Comment on above: Performed By: #### 2 28789 #### [facility],[address] [place] [address] 59057 WBC 8.4 x 10EE3/UL Normal 4.5 - 10.8 [facility] Comment on above: Performed By: #### 2 31151 #### [facility],[address] [place] [address] 51802 CMP with eGFRon 02-10-2021 AGE 20 years Normal [facility] Comment on above: Performed By: #### 2 00534 #### [facility],[address] [place] [address] 79504 Albumin [Mass/Vol] 4.3 g/dL Normal 3.4 - 5.0 [facility] Comment on above: Performed By: #### 2 65853 #### [facility],[address] [place] [address] 09185 Albumin/Globulin [Mass ratio] 1.1 {ratio} Normal 0.9 - 1.6 [facility] Comment on above: Performed By: #### 2 09041 #### [facility],[address] [place] [address] 81070 ALK PHOS 117 U/L High 46 - 116 [facility] Comment on above: Performed By: #### 2 84174 #### [facility],[address] [place] [address] 41906 ALT [Catalytic activity/Vol] 35 U/L Normal 14 - 59 [facility] Comment on above: Performed By: #### 2 77901 #### [facility],[address] [place] [address] 86875 Anion gap [Moles/Vol] 34 mmol/L High 10 - 20 [facility] Comment on above: Performed By: #### 2 07446 #### [facility],[address] [place] [address] AST [Catalytic activity/Vol] 21 U/L Normal 13 - 39 [facility] Comment on above: Performed By: #### 2 99099 #### [facility],[address] [place] [address] B/C RATIO 17 ratio Normal 0 - 30 [facility] Comment on above: Performed By: #### 2 28305 #### [facility],[address] [place] [address] 94092 Bilirubin [Mass/Vol] 0.8 mg/dL Normal 0.2 - 1.0 [facility] Comment on above: Performed By: #### 2 11867 #### [facility],[address] [place] [address] 08767 Calcium [Mass/Vol] 9.7 mg/dL Normal 8.5 - 10.1 [facility] Comment on above: Performed By: #### 2 61909 #### [facility],[address] [place] [address] 26131 Chloride [Moles/Vol] 98 mmol/L Normal 98 - 107 [facility] Comment on above: Performed By: #### 2 43988 #### [facility],[address] [place] [address] 08628 CMP with eGFR Normal [facility] Comment on above: Result Comment: COMP REHENSIVE METABOLIC PANEL Performed By: #### 2 64331 #### [facility],[address] [place] [address] 86371 CO2 [Moles/Vol] 8.2 mmol/L Critically low 21.0 - 32.0 [facility] Comment on above: Result Comment: { CA LLED TO EMIL @1816/ADL { READ BACK BY EMIL RA@1815 Performed By: #### 2 57333 #### [facility],[address] [place], [place] [id number] Creatinine [Mass/Vol] 0.88 mg/dL Normal 0.55 - 1.02 [facility] Comment on above: Performed By: #### 2 35409 #### [facility],[address] [place] [address] 30910 GFR/1.73 sq M.predicted among non-blacks MDRD (S/P/Bld) [Vol rate/Area] mL/min/{1.73_m2} Normal 60 - 999 [facility] Comment on above: Performed By: #### 2 33772 #### [facility],[address] [place] [address] 06641 Result Comment: ACCO RDING TO THE NATIONAL KIDNEY DISEASE EDUCATION PROGRAM(NKDE), A NORMAL eGFR IS A VALUE GREATER THAN OR EQUAL TO 60 ML/MIN/1.73 SQ METERS. CHRONIC KIDNEY DISEASE: <60mL/MIN/1.73 SQ METERS KIDNEY FAILURE: <15mL/MIN/1.73 SQ METERS THIS TEST SHOULD ONLY BE USED FOR PATIENTS 18 YEARS OF AGE AND OLDER. Globulin (S) [Mass/Vol] 3.9 g/dL High 1.5 - 3.8 [facility] Comment on above: Performed By: #### 2 52032 #### [facility],[address] [place] [address] 55673 Glucose [Mass/Vol] 383 mg/dL High 74 - 106 [facility] Comment on above: Performed By: #### 2 20969 #### [facility],[address] [place] [address] 54053 Potassium [Moles/Vol] 4.5 mmol/L Normal 3.5 - 5.1 [facility] Comment on above: Performed By: #### 2 14675 #### [facility],[address] [place] [address] 07730 Protein [Mass/Vol] 8.2 g/dL Normal 6.4 - 8.2 [facility] Comment on above: Performed By: #### 2 29767 #### [facility],[address] [place] [address] 91592 Sodium [Moles/Vol] 136 mmol/L Normal 136 - 145 [facility] Comment on above: Performed By: #### 2 75064 #### [facility],[address] [place] [address] 75208 Urea nitrogen [Mass/Vol] 15 mg/dL Normal 7 - 18 [facility] Comment on above: Performed By: #### 2 48067 #### [facility],[address] [place] [address] ABDOMEN/PELVIS [facility] 02-10 CT ABDOMEN/PELVIS [place] [address] Patient: KALIE DESIR Phone#: : 2000 Age: 20 Gender: F Pt. Type: ER Account: [id number] Location: [facility] Ordering: DR. KASHMIR SÁNCHEZ Exam Date: 02/10/2021/19:09 Family Phys: Charge Code: [id number] Physician: Louisa Order #: [id number] DLP Dose#: 4.2mGy PROCEDURE: CT ABDOMEN/PELVIS WITHOUT CONTRAST COMPARISON: None. INDICATIONS: Vomiting. TECHNIQUE: CT images were created without intravenous contrast. All CT scans at this facility use dose modulation, iterative reconstruction, and/or weight based dosing when appropriate to reduce radiation dose to as low as reasonably achievable. IV CONTRAST: No IV contrast used,0ml TOTAL DOSE: 4.2 CTDIvol(mGy) FINDINGS: LIVER: Normal. No enlargement, atrophy, abnormal density, or significant focal lesion. BILIARY: Normal. No visible dilatation or calcification. PANCREAS: Normal. No lesion, fluid collection, ductal dilatation, or atrophy. SPLEEN: Normal. No enlargement or focal lesion. KIDNEYS: Normal. No mass, obstruction, or calcification. ADRENALS: Normal. No mass or enlargement. AORTA/VASCULAR: Normal. No aneurysm. RETROPERITONEUM: Normal. No mass or adenopathy. BOWEL/MESENTERY: There is mild mucosal thickening of left abdominal small bowel with few scattered mesenteric lymph nodes. Possibility of enteritis/adenitis is raised. Moderate stool retention. ABDOMINAL WALL: Normal. No mass or hernia. URINARY BLADDER: Normal. No visible focal wall thickening, lesion, or calculus. PELVIC NODES: Normal. No adenopathy. PELVIC ORGANS: Normal. No visible mass. Pelvic organs appropriate for patient age. BONES: Normal. No bony lesion or fracture. Continued Report - Page 2 of 2 Patient: KALIE DESIR Phone#: : 2000 Age: 20 Gender: F Pt. Type: ER Account: [id number] Location: 2 Ordering: DR. KASHMIR SÁNCHEZ Exam Date: 02/10/2021/19:09 Family Phys: Charge Code: [id number] Physician: Louisa Order #: [id number] DLP Dose#: 4.2mGy LUNG BASES: Normal. No visible pulmonary or pleural disease. OTHER: Negative. CONCLUSION: 1. Possibility enteritis/mesenteric adenitis is raised. Dictated by: Carmenza Hurtado MD on 02/11/2021 at 22:31 Approved by: Carmenza Hurtado MD on 02/11/2021 at 22:33 Normal [facility] KETONE, BLOOD, QUALon 2020 Ketones Ql (U) MODERATE Normal XOCHITL - NEGATIVE [facility] Comment on above: Result Comment: SPEC IMEN SERUM Performed By: #### 2 53206 #### [facility],[address] [place] [address] LACTATEon 02-10-2021 Lactate [Moles/Vol] 2.0 mmol/L Normal 0.4 - 2.0 [facility] Comment on above: Performed By: #### 2 18401 #### [facility],[address] [place] [address] LIPASEon 02-10-2021 Lipase [Catalytic activity/Vol] 64.0 U/L Low 73.0 - 393 [facility] Comment on above: Performed By: #### 2 35075 #### [facility],[address] [place] [address] URINEon 02-10-2021 Beta HCG ( test) Ql (U) Negative Normal NEGATIVE [facility] Comment on above: Performed By: #### 2 27271 #### [facility],[address] [place] [address] EXTERNAL QC DONE? YES Normal [facility] Comment on above: Performed By: #### 2 30543 #### [facility],[address] [place] [address] INTERNAL QC PASS Normal [facility] Comment on above: Performed By: #### 2 09631 #### [facility],[address] [place], [place] [id number] URINALYSISon 02-10-2021 Bilirubin Ql (U) Negative Normal NORMAL: NEGATIVE [facility] Comment on above: Performed By: #### 2 43232 #### [facility],[address] [place] [address] Clarity (U) clear Normal NORMAL: CLEAR [facility] Comment on above: Performed By: #### 2 81494 #### [facility],[address] [place], [place] [id number] Color (U) p.yel Normal NORMAL: YELLOW [facility] Comment on above: Performed By: #### 2 60026 #### [facility],[address] [place], [place] [id number] Glucose Ql (U) 1000 Abnormal NORMAL: NORMAL [facility] Comment on above: Performed By: #### 2 47302 #### [facility],[address] [place] [address] 87585 Hemoglobin Ql (U) Negative Normal NORMAL: NEGATIVE [facility] Comment on above: Performed By: #### 2 71342 #### [facility],[address] [place] [address] 80527 Ketone 150 Abnormal NORMAL: NEGATIVE [facility] Comment on above: Performed By: #### 2 91629 #### [facility],[address] [place] [address] 35564 Leukocytes Negative Normal NORMAL: NEGATIVE [facility] Comment on above: Performed By: #### 2 80880 #### [facility],[address] [place] [address] 17351 Nitrite Ql (U) Negative Normal NORMAL: NEGATIVE [facility] Comment on above: Performed By: #### 2 87985 #### [facility],[address] [place] [address] pH (U) 5 [pH] Normal NORMAL: 5.0-8.0 [facility] Comment on above: Performed By: #### 2 60144 #### [facility],[address] [place], [place] [id number] Protein Ql (U) 30 Abnormal NORMAL: NEGATIVE [facility] Comment on above: Performed By: #### 2 52655 #### [facility],[address] [place], [place] [id number] Sp [place] 1.025 Normal NORMAL: 1.010-1.030 [facility] Comment on above: Performed By: #### 2 13125 #### [facility],[address] [place] [address] Specimen Type Void Normal [facility] Comment on above: Performed By: #### 2 70429 #### [facility],[address] [place] [address] Urinalysis dipstick W Reflex Microscopic panel (U) NOT INDICATED Normal [facility] Comment on above: Performed By: #### 2 36465 #### [facility],[address] [place] [address] 55884 Urobilinog NORM Normal NORMAL: NORMAL [facility] Comment on above: Performed By: #### 2 56503 #### [facility],[address] [place] [address] 85222 XR Hand - right PA and Later al and Obliqueon 05-05-2020 IMPRESSION: Unremarkable radiograph Timekeeper: PSCB Transcribe Date/Time: May 05 2020 1:52P Dictated by : NATHAN TA MD This examination was interpreted and the report reviewed and electronically signed by: NATHAN TA MD on May 05 2020 1:53PM [facility] DIVISION OF RADIOLOGY * * *Final Report* * * DATE OF EXAM: May 05 2020 1:51PM WOX 5346 - XR HAND 3V PA/LAT/OBL RT / PROCEDURE REASON: Hand pain, right * * * * Physician Interpretation * * * * RIGHT HAND History: Right hand pain Findings: 3 views were performed. No evidence of acute fracture. The joint spaces are maintained. DIVISION OF RADIOLOGY Provider, [facility] - 05/05/2020 * * *Final Report* * * DATE OF EXAM: May 05 2020 1:51PM WOX 5346 - XR HAND 3V PA/LAT/OBL RT / PROCEDURE REASON: Hand pain, right * * * * Physician Interpretation * * * * RIGHT HAND History: Right hand pain Findings: 3 views were performed. No evidence of acute fracture. The joint spaces are maintained. IMPRESSION IMPRESSION: Unremarkable radiograph Timekeeper: PSCB Transcribe Date/Time: May 05 2020 1:52P Dictated by : NATHAN TA MD This examination was interpreted and the report reviewed and electronically signed by: NATHAN TA MD on May 05 2020 1:53PM EST [facility] Radiology Study observation (narrative) [facility] XR Hand - right PA and Later al and ObliqueOrdered By: [facility] Provider on 05-05-2020 [facility] Office Visit: nexplanonon Documentation of current medications (procedure) Done Invalid Interpretation Code [facility] Fall risk assessment No Invalid Interpretation Code [facility] HCG.beta subunit ( test) Ql (U) Negative Invalid Interpretation Code [facility] Protein mass conc Done Invalid Interpretation Code [facility] Tobacco smoking status NHIS Never Invalid Interpretation Code [facility] Tobacco smoking status NHIS Current every day smoker Invalid Interpretation Code [facility] Tobacco use HS Current every day smoker Invalid Interpretation Code [facility] Urine, test (choriogonadotropin presence) Negative Invalid Interpretation Code [facility] Lab Report: Comprehensive Sc tabolic Profilon 04-03-2017 Alanine aminotransferase (ALT) 16 U/L Invalid Interpretation Code 1278 [facility] Work Phone: Albumin 4.1 g/dL Invalid Interpretation Code 3.2-4.5 [facility] Work Phone: Albumin/Globulin Ratio 1.1 {ratio} Invalid Interpretation Code 0.9-2.4 [facility] Work Phone: Alkaline phosphatase (ALP) 96 U/L Invalid Interpretation Code 47-119 [facility] Work Phone: ALP enzyme act/vol (Bld) 96 U/L Invalid Interpretation Code 47-119 [facility] Anion gap 10 mmol/L Invalid Interpretation Code 5-15 [facility] Work Phone: Anion gap 4 molar conc 10 Invalid Interpretation Code 5-15 [facility] Aspartate aminotransferase (AST) 10 U/L Low 15-37 [facility] Work Phone: Bilirubin (total) 0.80 mg/dL Invalid Interpretation Code 0.20-1.00 [facility] Work Phone: BUN/Creatinine Ratio 21.7 RATIO High 10-[address] [facility] Work Phone: Calcium 9.3 mg/dL Invalid Interpretation Code 8.5-10.1 [facility] Work Phone: Chloride 105 mmol/L Invalid Interpretation Code 98-107 [facility] Work Phone: CO2 26.0 mmol/L Invalid Interpretation Code 21.0-32.0 [facility] Work Phone: CO2 ppres (BldV) 26.0 mmol/L Invalid Interpretation Code 21.0-32.0 [facility] Creatinine 0.51 mg/dL Low 0.55-1.02 [facility] Work Phone: eGFR (non-black) 201 mL/min/{1.73_m2} Invalid Interpretation Code >60 [facility] Work Phone: eGFR (non-black) 166 mL/min/{1.73_m2} Invalid Interpretation Code >60 [facility] Work Phone: EST GFR - AA 201 mL/min Invalid Interpretation Code >60 [facility] Globulin 3.6 g/dL High 2.3-3.5 [facility] Work Phone: Glucose 111 mg/dL High 70-110 [facility] Work Phone: Glucose mass conc 111 mg/dL High 70-110 [facility] Work Phone: Potassium 3.7 mmol/L Invalid Interpretation Code 3.5-5.1 [facility] Work Phone: Protein 7.7 g/dL Invalid Interpretation Code 6.4-8.2 [facility] Work Phone: Sodium 141 mmol/L Invalid Interpretation Code 136-145 [facility] Work Phone: Urea nitrogen 11 mg/dL Invalid Interpretation Code 7-18 [facility] Work Phone: Lab Report: Hemoglobin A1con 04-03-2017 HbA1c 10.4 % High 4.2-6.3 [facility] Work Phone: Office Visit: Diabetes follo w upon 04-02-2017 Documentation of current medications (procedure) Done Invalid Interpretation Code [facility] Work Phone: Microbiology: Culture, Genit al Comprehensiveon 03-31-2017 CUV Vancomycin $ 0.5 S Invalid Interpretation Code [facility] GE use only - for [employer] import when terms are not otherwise specified Vancomycin $ 0.5 S Invalid Interpretation Code [facility] Work Phone: Office Visit: vaginal itchin jose 03-28-2017 Documentation of current medications (procedure) Done Invalid Interpretation Code [facility] Fall risk assessment No Invalid Interpretation Code [facility] Protein mass conc Done [facility] Tobacco smoking status NHIS Never Invalid Interpretation Code [facility] Tobacco smoking status NHIS Current every day smoker [facility] Tobacco use CPHS Current every day smoker Invalid Interpretation Code [facility] Office Visit: Implanton Documentation of current medications (procedure) Done Invalid Interpretation Code [facility] assessment [facility] HCG.beta subunit ( test) Ql (U) Negative Invalid Interpretation Code [facility] Protein mass conc Done [facility] Tobacco smoking status NHIS Never [facility] Tobacco smoking status NHIS Current every day smoker [facility] Tobacco use CPHS Current every day smoker Invalid Interpretation Code [facility] Urine, test (choriogonadotropin presence) Negative Invalid Interpretation Code [facility] Lab Report: Thyroid Stim Hor zohra (TSH)on 01-15-2017 Thyrotropin Qn 1.46 u[iU]/mL Invalid Interpretation Code 0.358-3.74 [facility] Work Phone: Office Visiton 01-15-2017 Documentation of current medications (procedure) Done Invalid Interpretation Code [facility] Work Phone: Protein mass conc Done [facility] Work Phone: Office Visit: DMon Dietary management education, guidance, and counseling (procedure) yes Invalid Interpretation Code [facility] Work Phone: Fall risk assessment No Invalid Interpretation Code [facility] Work Phone: Protein mass conc Done [facility] Work Phone: Tobacco smoking status NHIS Never Invalid Interpretation Code [facility] Work Phone: Tobacco smoking status NHIS Never smoker [facility] Work Phone: Tobacco use CPHS Never smoker Invalid Interpretation Code [facility] Work Phone: Vital Signs Date Time Vital Sign Value Performing Clinician Facility 11-28-2024 13:09-0400 Body temperature 97.8 [degF] [facility] 11-28-2024 13:09-0400 Diastolic blood pressure 72 mm[Hg] [facility] 11-28-2024 13:09-0400 Heart rate 80 /min [facility] 11-28-2024 13:09-0400 Respiratory rate 16 /min [facility] 11-28-2024 13:09-0400 SaO2% (BldA) [Mass fraction] 99 % [facility] 11-28-2024 13:09-0400 Systolic blood pressure 124 mm[Hg] [facility] 11-28-2024 09:40-0400 Body height 149.86 cm [facility] 11-28-2024 09:40-0400 Body weight 74 kg [facility] 11-28-2024 06:00-0400 Body mass index (BMI) [Ratio] 32.8 kg/m2 [facility] 11-27-2024 15:34-0400 Body temperature 97.3 [degF] [facility] 11-27-2024 15:34-0400 Diastolic blood pressure 88 mm[Hg] [facility] 11-27-2024 15:34-0400 Heart rate 97 /min [facility] 11-27-2024 15:34-0400 Respiratory rate 19 /min [facility] 11-27-2024 15:34-0400 SaO2% (BldA) [Mass fraction] 98 % [facility] 11-27-2024 15:34-0400 Systolic blood pressure 126 mm[Hg] [facility] 11-27-2024 12:23-0400 Body height 149.86 cm [facility] 11-27-2024 12:23-0400 Body mass index (BMI) [Ratio] 29 kg/m2 [facility] 11-27-2024 12:23-0400 Body weight 65.31 kg [facility] 11-26-2024 13:34-0400 Body temperature 97.6 [degF] [facility] 11-26-2024 13:34-0400 Diastolic blood pressure 83 mm[Hg] [facility] 11-26-2024 13:34-0400 Heart rate 78 /min [facility] 11-26-2024 13:34-0400 Respiratory rate 18 /min [facility] 11-26-2024 13:34-0400 SaO2% (BldA) [Mass fraction] 98 % [facility] 11-26-2024 13:34-0400 Systolic blood pressure 134 mm[Hg] [facility] 11-26-2024 07:48-0400 Body height 149.86 cm [facility] 11-26-2024 07:48-0400 Body mass index (BMI) [Ratio] 29.1 kg/m2 [facility] 11-26-2024 07:48-0400 Body weight 65.4 kg [facility] 11-11-2024 14:24-0400 Body mass index (BMI) [Ratio] 29.7 kg/m2 [facility] 11-11-2024 14:24-0400 Body weight 66.73 kg [facility] 11-11-2024 14:24-0400 Diastolic blood pressure 79 mm[Hg] [facility] 11-11-2024 14:24-0400 Systolic blood pressure 117 mm[Hg] [facility] 10-04-2024 13:40-0400 Body height 149.86 cm [facility] 10-04-2024 13:40-0400 Body mass index (BMI) [Ratio] 31.3 kg/m2 [facility] 10-04-2024 13:40-0400 Body temperature 97.5 [degF] [facility] 10-04-2024 13:40-0400 Body weight 70.3 kg [facility] 10-04-2024 13:40-0400 Diastolic blood pressure 82 mm[Hg] [facility] 10-04-2024 13:40-0400 Heart rate 88 /min [facility] 10-04-2024 13:40-0400 Respiratory rate 15 /min [facility] 10-04-2024 13:40-0400 SaO2% (BldA) [Mass fraction] 99 % [facility] 10-04-2024 13:40-0400 Systolic blood pressure 139 mm[Hg] [facility] 09-13-2024 09:15-0500 Body mass index (BMI) [Ratio] 33 kg/m2 [facility] 09-13-2024 09:15-0500 Body weight 69.39 kg [facility] 09-13-2024 09:15-0500 Diastolic blood pressure 78 mm[Hg] [facility] 09-13-2024 09:15-0500 Systolic blood pressure 120 mm[Hg] [facility] 08-18-2024 12:42-0500 Body mass index (BMI) [Ratio] 29.91 kg/m2 Aris Geraldo STOCK CONTROLLER.CHANGER FIXER Work Phone: [facility] 08-18-2024 12:42-0500 Body temperature 98.1 [degF] Aris Geraldo STOCK CONTROLLER.CHANGER FIXER Work Phone: [facility] 08-18-2024 12:42-0500 Body weight 66.4 kg Aris Geraldo STOCK CONTROLLER.CHANGER FIXER Work Phone: [facility] 08-18-2024 12:42-0500 Diastolic blood pressure 70 mm[Hg] Aris Geraldo STOCK CONTROLLER.CHANGER FIXER Work Phone: [facility] 08-18-2024 12:42-0500 Heart rate 102 /min Aris Geraldo STOCK CONTROLLER.CHANGER FIXER Work Phone: [facility] 08-18-2024 12:42-0500 Respiratory rate 16 /min Aris Geraldo STOCK CONTROLLER.CHANGER FIXER Work Phone: [facility] 08-18-2024 12:42-0500 SaO2% (BldA) [Mass fraction] 98 % Aris Chow APRN.CHANGER FIXER Work Phone: [facility] 08-18-2024 12:42-0500 Systolic blood pressure 122 mm[Hg] Aris Chow APRN.CHANGER FIXER Work Phone: [facility] 05-07-2024 15:05-0400 Body mass index (BMI) [Ratio] 30.95 kg/m2 Arjun Kim MD Work Phone: [facility] 05-07-2024 15:05-0400 Body temperature 99 [degF] Arjun Kim MD Work Phone: [facility] 05-07-2024 15:05-0400 Body weight 68.7 kg Arjun Kim MD Work Phone: [facility] 05-07-2024 15:05-0400 Diastolic blood pressure 68 mm[Hg] Arjun Kim MD Work Phone: [facility] 05-07-2024 15:05-0400 Heart rate 89 /min Arjun Kim MD Work Phone: [facility] 05-07-2024 15:05-0400 Respiratory rate 16 /min Arjun Kim MD Work Phone: [facility] 05-07-2024 15:05-0400 SaO2% (BldA) [Mass fraction] 98 % Arjun Kim MD Work Phone: [facility] 05-07-2024 15:05-0400 Systolic blood pressure 118 mm[Hg] Arjun Kim MD Work Phone: [facility] 03-25-2024 14:14-0400 Body mass index (BMI) [Ratio] 30.58 kg/m2 Rosa Isela Gonzalez APRN.CHANGER FIXER Work Phone: [facility] 03-25-2024 14:14-0400 Body temperature 99 [degF] Rosa Isela Gonzalez APRN.CHANGER FIXER Work Phone: [facility] 03-25-2024 14:14-0400 Body weight 67.9 kg Rosa Isela Gonzalez APRN.CHANGER FIXER Work Phone: [facility] 03-25-2024 14:14-0400 Diastolic blood pressure 82 mm[Hg] Rosa Isela Gonzalez APRN.CHANGER FIXER Work Phone: [facility] 03-25-2024 14:14-0400 Heart rate 105 /min Rosa Isela Gonzalez APRN.CHANGER FIXER Work Phone: [facility] 03-25-2024 14:14-0400 Respiratory rate 21 /min Rosa Isela Gonzalez APRN.CHANGER FIXER Work Phone: [facility] 03-25-2024 14:14-0400 SaO2% (BldA) [Mass fraction] 98 % Rosa Isela Gonzalez APRN.CHANGER FIXER Work Phone: [facility] 03-25-2024 14:14-0400 Systolic blood pressure 118 mm[Hg] Rosa Isela Gonzalez APRN.CHANGER FIXER Work Phone: [facility] 03-10-2024 10:28-0400 Diastolic blood pressure 70 mm[Hg] Evelyn Carr MD Work Phone: [facility] 03-10-2024 10:28-0400 Systolic blood pressure 122 mm[Hg] Evelyn Carr MD Work Phone: [facility] 03-01-2024 11:09-0400 Body height 149 cm Evelyn Carr MD Work Phone: [facility] 03-01-2024 11:09-0400 Body mass index (BMI) [Ratio] 31.26 kg/m2 Evelyn Carr MD Work Phone: [facility] 03-01-2024 11:09-0400 Body weight 69.4 kg Evelyn Carr MD Work Phone: [facility] 03-01-2024 11:09-0400 Diastolic blood pressure 72 mm[Hg] Evelyn Carr MD Work Phone: [facility] 03-01-2024 11:09-0400 Systolic blood pressure 120 mm[Hg] Evelyn Carr MD Work Phone: [facility] 02-04-2024 09:52-0400 Body height 149.9 cm Veronika Cioce STOCK CONTROLLER.CHANGER FIXER Work Phone: [facility] 02-04-2024 09:52-0400 Body mass index (BMI) [Ratio] 30.62 kg/m2 Veronika Cioce STOCK CONTROLLER.CHANGER FIXER Work Phone: [facility] 02-04-2024 09:52-0400 Body temperature 97.7 [degF] Veronika Cioce STOCK CONTROLLER.CHANGER FIXER Work Phone: [facility] 02-04-2024 09:52-0400 Body weight 68.77 kg Veronika Cioce STOCK CONTROLLER.CHANGER FIXER Work Phone: [facility] 02-04-2024 09:52-0400 Diastolic blood pressure 74 mm[Hg] Veronika Cioce STOCK CONTROLLER.CHANGER FIXER Work Phone: [facility] 02-04-2024 09:52-0400 Heart rate 120 /min Veronika Cioce STOCK CONTROLLER.CHANGER FIXER Work Phone: [facility] 02-04-2024 09:52-0400 SaO2% (BldA) [Mass fraction] 99 % Veronika Cioce STOCK CONTROLLER.CHANGER FIXER Work Phone: [facility] 02-04-2024 09:52-0400 Systolic blood pressure 122 mm[Hg] Veronika Cioce STOCK CONTROLLER.CHANGER FIXER Work Phone: [facility] 01-27-2024 10:13-0400 Heart rate 89 /min Chasity Hodge PA-C Work Phone: [facility] 01-27-2024 09:49-0400 Body mass index (BMI) [Ratio] 30.7 kg/m2 Chasity Hodge PA-C Work Phone: [facility] 01-27-2024 09:49-0400 Body temperature 98.01 [degF] Chasity Hodge PA-C Work Phone: [facility] 01-27-2024 09:49-0400 Body weight 68.95 kg Chasity Hodge PA-C Work Phone: [facility] 01-27-2024 09:49-0400 Diastolic blood pressure 68 mm[Hg] Chasity Hodge PA-C Work Phone: [facility] 01-27-2024 09:49-0400 Respiratory rate 18 /min Chasity Hodge PA-C Work Phone: [facility] 01-27-2024 09:49-0400 SaO2% (BldA) [Mass fraction] 98 % Chasity Hodge PA-C Work Phone: [facility] 01-27-2024 09:49-0400 Systolic blood pressure 100 mm[Hg] Chasity Hodge PA-C Work Phone: [facility] 12-24-2023 09:33-0400 Body mass index (BMI) [Ratio] 30.9 kg/m2 Chasity Hodge PA-C Work Phone: [facility] 12-24-2023 09:33-0400 Body temperature 97.9 [degF] Chasity Hodge PA-C Work Phone: [facility] 12-24-2023 09:33-0400 Body weight 69.4 kg Chasity Hodge PA-C Work Phone: [facility] 12-24-2023 09:33-0400 Diastolic blood pressure 59 mm[Hg] Chasity Hodge PA-C Work Phone: [facility] 12-24-2023 09:33-0400 Heart rate 89 /min Chasity Hodge PA-C Work Phone: [facility] 12-24-2023 09:33-0400 Respiratory rate 16 /min Chasity Hodge PA-C Work Phone: [facility] 12-24-2023 09:33-0400 SaO2% (BldA) [Mass fraction] 98 % Chasitykristina Hodge PA-C Work Phone: [facility] 12-24-2023 09:33-0400 Systolic blood pressure 98 mm[Hg] Chasity Hodge PA-C Work Phone: [facility] 11-28-2023 10:00-0400 Body temperature 97.8 [degF] [facility] 11-28-2023 10:00-0400 Diastolic blood pressure 77 mm[Hg] [facility] 11-28-2023 10:00-0400 Heart rate 101 /min [facility] 11-28-2023 10:00-0400 Respiratory rate 12 /min [facility] 11-28-2023 10:00-0400 SaO2% (BldA) [Mass fraction] 98 % [facility] 11-28-2023 10:00-0400 Systolic blood pressure 115 mm[Hg] [facility] 11-28-2023 04:15-0400 Body mass index (BMI) [Ratio] 28.5 kg/m2 [facility] 11-28-2023 04:15-0400 Body weight 64.2 kg [facility] 11-26-2023 14:39-0400 Body height 149.86 cm [facility] 11-26-2023 08:35-0400 Body temperature 97.6 [degF] [facility] 11-26-2023 08:35-0400 Diastolic blood pressure 86 mm[Hg] [facility] 11-26-2023 08:35-0400 Heart rate 126 /min [facility] 11-26-2023 08:35-0400 Respiratory rate 18 /min [facility] 11-26-2023 08:35-0400 SaO2% (BldA) [Mass fraction] 99 % [facility] 11-26-2023 08:35-0400 Systolic blood pressure 137 mm[Hg] [facility] 11-26-2023 08:28-0400 Body height 149.86 cm [facility] 11-26-2023 08:28-0400 Body mass index (BMI) [Ratio] 28.3 kg/m2 [facility] 11-26-2023 08:28-0400 Body weight 63.7 kg [facility] 11-11-2023 02:49-0400 Body height 149.86 cm [facility] 11-11-2023 02:49-0400 Body mass index (BMI) [Ratio] 31.8 kg/m2 [facility] 11-11-2023 02:49-0400 Body temperature 97.6 [degF] [facility] 11-11-2023 02:49-0400 Body weight 71.66 kg [facility] 11-11-2023 02:49-0400 Diastolic blood pressure 74 mm[Hg] [facility] 11-11-2023 02:49-0400 Heart rate 89 /min [facility] 11-11-2023 02:49-0400 Respiratory rate 18 /min [facility] 11-11-2023 02:49-0400 SaO2% (BldA) [Mass fraction] 97 % [facility] 11-11-2023 02:49-0400 Systolic blood pressure 142 mm[Hg] [facility] 10-17-2023 12:00-0400 Body temperature 97.3 [degF] [facility] 10-17-2023 12:00-0400 Diastolic blood pressure 57 mm[Hg] [facility] 10-17-2023 12:00-0400 Heart rate 81 /min [facility] 10-17-2023 12:00-0400 Respiratory rate 19 /min [facility] 10-17-2023 12:00-0400 SaO2% (BldA) [Mass fraction] 100 % [facility] 10-17-2023 12:00-0400 Systolic blood pressure 115 mm[Hg] [facility] 10-17-2023 10:29-0400 Body height 149.86 cm [facility] 10-17-2023 10:29-0400 Body weight 63.5 kg [facility] 10-17-2023 05:01-0400 Body mass index (BMI) [Ratio] 28.3 kg/m2 [facility] 10-16-2023 18:07-0400 Body temperature 98.8 [degF] [facility] 10-16-2023 18:07-0400 Diastolic blood pressure 85 mm[Hg] [facility] 10-16-2023 18:07-0400 Heart rate 99 /min [facility] 10-16-2023 18:07-0400 Respiratory rate 17 /min [facility] 10-16-2023 18:07-0400 SaO2% (BldA) [Mass fraction] 100 % [facility] 10-16-2023 18:07-0400 Systolic blood pressure 158 mm[Hg] [facility] 10-16-2023 16:00-0400 Body mass index (BMI) [Ratio] 31.1 kg/m2 [facility] 10-16-2023 16:00-0400 Body weight 69.8 kg [facility] 10-16-2023 15:57-0400 Body height 149.86 cm [facility] 08-23-2023 15:33-0500 Diastolic blood pressure 62 mm[Hg] [facility] 08-23-2023 15:33-0500 Heart rate 90 /min [facility] 08-23-2023 15:33-0500 Respiratory rate 18 /min [facility] 08-23-2023 15:33-0500 SaO2% (BldA) [Mass fraction] 99 % [facility] 08-23-2023 15:33-0500 Systolic blood pressure 130 mm[Hg] [facility] 08-23-2023 12:39-0500 Body mass index (BMI) [Ratio] 31.3 kg/m2 [facility] 08-23-2023 12:39-0500 Body temperature 100 [degF] [facility] 08-23-2023 12:39-0500 Body weight 70.3 kg [facility] 08-13-2023 13:40-0500 Body height 149.86 cm [facility] 08-13-2023 13:40-0500 Body mass index (BMI) [Ratio] 31.5 kg/m2 [facility] 08-13-2023 13:40-0500 Body temperature 98.8 [degF] [facility] 08-13-2023 13:40-0500 Body weight 70.76 kg [facility] 08-13-2023 13:40-0500 Diastolic blood pressure 76 mm[Hg] [facility] 08-13-2023 13:40-0500 Heart rate 88 /min [facility] 08-13-2023 13:40-0500 Respiratory rate 18 /min [facility] 08-13-2023 13:40-0500 SaO2% (BldA) [Mass fraction] 98 % [facility] 08-13-2023 13:40-0500 Systolic blood pressure 123 mm[Hg] [facility] 05-12-2023 13:39-0400 Body mass index (BMI) [Ratio] 28.1 kg/m2 [facility] 05-12-2023 13:39-0400 Body temperature 98.2 [degF] [facility] 05-12-2023 13:39-0400 Body weight 63.21 kg [facility] 05-12-2023 13:39-0400 Diastolic blood pressure 78 mm[Hg] [facility] 05-12-2023 13:39-0400 Heart rate 102 /min [facility] 05-12-2023 13:39-0400 Respiratory rate 16 /min [facility] 05-12-2023 13:39-0400 SaO2% (BldA) [Mass fraction] 97 % [facility] 05-12-2023 13:39-0400 Systolic blood pressure 114 mm[Hg] [facility] 04-07-2023 12:21-0400 Body temperature 98.91 [degF] Arely Velez STOCK CONTROLLER.CHANGER FIXER Work Phone: [facility] 04-07-2023 12:21-0400 Body weight 63.05 kg Arely Velez STOCK CONTROLLER.CHANGER FIXER Work Phone: [facility] 04-07-2023 12:21-0400 Diastolic blood pressure 66 mm[Hg] Arely Velez STOCK CONTROLLER.CHANGER FIXER Work Phone: [facility] 04-07-2023 12:21-0400 Heart rate 112 /min Arely Velez STOCK CONTROLLER.CHANGER FIXER Work Phone: [facility] 04-07-2023 12:21-0400 Respiratory rate 16 /min Arely Velez STOCK CONTROLLER.CHANGER FIXER Work Phone: [facility] 04-07-2023 12:21-0400 SaO2% (BldA) [Mass fraction] 97 % Arely Velez STOCK CONTROLLER.CHANGER FIXER Work Phone: [facility] 04-07-2023 12:21-0400 Systolic blood pressure 112 mm[Hg] Arely Velez STOCK CONTROLLER.CHANGER FIXER Work Phone: [facility] 03-05-2023 14:16-0400 Body temperature 98 [degF] Dr. Erika Sen Work Phone: [facility] 03-05-2023 14:16-0400 Diastolic blood pressure 98 mm[Hg] Dr. Erika Sen Work Phone: [facility] 03-05-2023 14:16-0400 Heart rate 89 /min Dr. Erika Sen Work Phone: [facility] 03-05-2023 14:16-0400 Respiratory rate 16 /min Dr. Erika Sen Work Phone: 5(399)921-453117 [place] [address] 03-05-2023 14:16-0400 SaO2% (BldA) [Mass fraction] 99 % Dr. Erika Sen Work Phone: 2(970)188-340117 [place] [address] 03-05-2023 14:16-0400 Systolic blood pressure 129 mm[Hg] Dr. Erika Sen Work Phone: 2(146)153-312517 [place] [address] 03-05-2023 05:16-0400 Body mass index (BMI) [Ratio] 25.4 kg/m2 Dr. Erika Sen Work Phone: 5(940)971-030717 [place] [address] 03-05-2023 05:16-0400 Body weight 57.[address] Erika Sen Work Phone: 3(142)191-584617 [place] [address] 03-04-2023 08:32-0400 Body height 149.[address] Erika Sen Work Phone: 3(104)732-876717 [place] [address] 03-03-2023 15:51-0400 Body temperature 98 [degF] Dr. Erika Sen Work Phone: 7(330)974-083717 [place] [address] 03-03-2023 15:51-0400 Diastolic blood pressure 78 mm[Hg] Dr. Erika Sen Work Phone: 3(858)733-825417 [place] [address] 03-03-2023 15:51-0400 Heart rate 82 /min Dr. Erika Sen Work Phone: 6(989)213-110417 [place] [address] 03-03-2023 15:51-0400 Respiratory rate 16 /min Dr. Erika Sen Work Phone: 5(830)828-082917 [place] [address] 03-03-2023 15:51-0400 SaO2% (BldA) [Mass fraction] 100 % Dr. Erika Sen Work Phone: 3(121)826-476817 [place] [address] 03-03-2023 15:51-0400 Systolic blood pressure 135 mm[Hg] Dr. Erika Sen Work Phone: 7(596)948-095517 [place] [address] 03-03-2023 11:50-0400 Body height 149.[address] Erika Sen Work Phone: 7(882)224-234017 [place] [address] 03-03-2023 11:50-0400 Body mass index (BMI) [Ratio] 21.6 kg/m2 Dr. Erika Sen Work Phone: [facility] 03-03-2023 11:50-0400 Body weight 48.[address] Erika Sen Work Phone: [facility] 03-03-2023 10:33-0400 Body temperature 98.71 [degF] Chasity CROOKS-C Work Phone: [facility] 03-03-2023 10:33-0400 Diastolic blood pressure 70 mm[Hg] Chasity CROOKS-C Work Phone: [facility] 03-03-2023 10:33-0400 Heart rate 134 /min Chasity Hodge PA-C Work Phone: [facility] 03-03-2023 10:33-0400 Systolic blood pressure 130 mm[Hg] Chasity CROOKS-C Work Phone: [facility] 03-02-2023 04:42-0400 Diastolic blood pressure 84 mm[Hg] Dr. Erika Sen Work Phone: [facility] 03-02-2023 04:42-0400 Heart rate 71 /min Dr. Erika Sen Work Phone: [facility] 03-02-2023 04:42-0400 Respiratory rate 18 /min Dr. Erika Sen Work Phone: [facility] 03-02-2023 04:42-0400 SaO2% (BldA) [Mass fraction] 100 % Dr. Erika Sen Work Phone: [facility] 03-02-2023 04:42-0400 Systolic blood pressure 110 mm[Hg] Dr. Erika Sen Work Phone: [facility] 03-01-2023 22:12-0400 Body mass index (BMI) [Ratio] 24.5 kg/m2 Dr. Erika Sen Work Phone: 0(986)359-068083 [place] [address] 03-01-2023 22:12-0400 Body temperature 98 [degF] Dr. Erika Sen Work Phone: 4(655)054-826017 [place] [address] 03-01-2023 22:12-0400 Body weight 55.[address] Erika Sen Work Phone: 8(443)571-296717 [place] [address] 02-17-2023 10:30-0400 Body temperature 99.3 [degF] Dr. Erika Sen Work Phone: 9(827)012-391317 [place] [address] 02-17-2023 10:30-0400 Diastolic blood pressure 86 mm[Hg] Dr. Erika Sen Work Phone: 2(734)256-427517 [place] [address] 02-17-2023 10:30-0400 Heart rate 86 /min Dr. Erika Sen Work Phone: 9(818)705-903017 [place] [address] 02-17-2023 10:30-0400 Respiratory rate 16 /min Dr. Erika Sen Work Phone: 5(723)617-075917 [place] [address] 02-17-2023 10:30-0400 SaO2% (BldA) [Mass fraction] 100 % Dr. Erika Sen Work Phone: 4(853)569-842417 [place] [address] 02-17-2023 10:30-0400 Systolic blood pressure 141 mm[Hg] Dr. Erika Sen Work Phone: 6(322)561-479017 [place] [address] 02-17-2023 06:00-0400 Body mass index (BMI) [Ratio] 26.7 kg/m2 Dr. Erika Sen Work Phone: 2(821)691-441017 [place] [address] 02-17-2023 06:00-0400 Body weight 60.[address] Erika Sen Work Phone: 7(770)464-874317 [place] [address] 02-15-2023 17:14-0400 Body temperature 97.3 [degF] Dr. Erika Sen Work Phone: 4(431)411-551417 [place] [address] 02-15-2023 17:14-0400 Diastolic blood pressure 77 mm[Hg] Dr. Erika Sen Work Phone: 0(160)220-392817 [place] [address] 02-15-2023 17:14-0400 Heart rate 138 /min Dr. Erika Sen Work Phone: [facility] 02-15-2023 17:14-0400 Respiratory rate 33 /min Dr. Erika Sen Work Phone: [facility] 02-15-2023 17:14-0400 SaO2% (BldA) [Mass fraction] 99 % Dr. Erika Sen Work Phone: [facility] 02-15-2023 17:14-0400 Systolic blood pressure 126 mm[Hg] Dr. Erika Sen Work Phone: 0(228)177-822341 [place] [address] 02-15-2023 15:05-0400 Body mass index (BMI) [Ratio] 26.6 kg/m2 Dr. Erika Sen Work Phone: 3(616)150-748041 [place] [address] 02-15-2023 15:05-0400 Body weight 59.[address] Erika Sen Work Phone: [facility] 02-15-2023 14:13-0400 Body height 149.[address] Erika Sen Work Phone: [facility] 01-16-2023 08:04-0400 Body temperature 98.1 [degF] Chasity Hodge PA-C Work Phone: [facility] 01-16-2023 08:04-0400 Body weight 63.5 kg Chasity Hodge PA-C Work Phone: [facility] 01-16-2023 08:04-0400 Diastolic blood pressure 80 mm[Hg] Chasity Hodge PA-C Work Phone: [facility] 01-16-2023 08:04-0400 Heart rate 94 /min Chasity Hodge PA-C Work Phone: [facility] 01-16-2023 08:04-0400 Respiratory rate 16 /min Chasity Hodge PA-C Work Phone: [facility] 01-16-2023 08:04-0400 Systolic blood pressure 130 mm[Hg] Chaisty Hodge PA-C Work Phone: [facility] 01-13-2023 11:35-0400 Body mass index (BMI) [Ratio] 28 kg/m2 Dr. Erika Sen Work Phone: [facility] 01-13-2023 11:35-0400 Body temperature 98.1 [degF] Dr. Erika Sen Work Phone: 0(745)424-545841 [place] [address] 01-13-2023 11:35-0400 Body weight 63.[address] Erika Sen Work Phone: 7(508)497-190817 [place] [address] 01-13-2023 11:35-0400 Diastolic blood pressure 71 mm[Hg] Dr. Erika Sen Work Phone: 8(514)338-225317 [place] [address] 01-13-2023 11:35-0400 Heart rate 109 /min Dr. Erika Sen Work Phone: 7(760)098-331017 [place] [address] 01-13-2023 11:35-0400 Respiratory rate 16 /min Dr. Erika Sen Work Phone: 3(352)713-131617 [place] [address] 01-13-2023 11:35-0400 SaO2% (BldA) [Mass fraction] 97 % Dr. Erika Sen Work Phone: 7(702)738-625441 [place] [address] 01-13-2023 11:35-0400 Systolic blood pressure 103 mm[Hg] Dr. Erika Sen Work Phone: 7(974)999-669441 [place] [address] 12-27-2022 10:09-0400 Body temperature 98.3 [degF] Dr. Erika Sen Work Phone: 9(160)990-779741 [place] [address] 12-27-2022 10:09-0400 Diastolic blood pressure 79 mm[Hg] Dr. Erika Sen Work Phone: 9(303)841-236117 [place] [address] 12-27-2022 10:09-0400 Heart rate 78 /min Dr. Erika Sen Work Phone: 7(722)151-681317 [place] [address] 12-27-2022 10:09-0400 Respiratory rate 18 /min Dr. Erika Sen Work Phone: 4(565)316-769941 [place] [address] 12-27-2022 10:09-0400 SaO2% (BldA) [Mass fraction] 98 % Dr. Erika Sen Work Phone: 3(920)692-748217 [place] [address] 12-27-2022 10:09-0400 Systolic blood pressure 120 mm[Hg] Dr. Erika Sen Work Phone: 2(388)863-741717 [place] [address] 12-26-2022 13:30-0400 Body weight 59.[address] Erika Sen Work Phone: 4(374)613-184317 [place] [address] 12-26-2022 06:00-0400 Body mass index (BMI) [Ratio] 26.5 kg/m2 Dr. Erika Sen Work Phone: 2(009)881-322417 [place] [address] 12-24-2022 06:04-0400 Body temperature 97.1 [degF] Dr. Erika Sen Work Phone: 1(968)142-026417 [place] [address] 12-24-2022 06:04-0400 Diastolic blood pressure 98 mm[Hg] Dr. Erika Sen Work Phone: 1(865)719-740817 [place] [address] 12-24-2022 06:04-0400 Heart rate 146 /min Dr. Erika Sen Work Phone: 8(617)603-200717 [place] [address] 12-24-2022 06:04-0400 Respiratory rate 36 /min Dr. Erika Sen Work Phone: 8(306)390-054517 [place] [address] 12-24-2022 06:04-0400 SaO2% (BldA) [Mass fraction] 99 % Dr. Erika Sen Work Phone: 0(633)637-428417 [place] [address] 12-24-2022 06:04-0400 Systolic blood pressure 145 mm[Hg] Dr. Erika Sen Work Phone: 2(284)175-869417 [place] [address] 12-23-2022 23:46-0400 Body height 149.[address] Erika Sen Work Phone: 0(035)882-693217 [place] [address] 12-23-2022 23:46-0400 Body mass index (BMI) [Ratio] 25.9 kg/m2 Dr. Erika Sen Work Phone: 1(545)438-081841 [place] [address] 12-23-2022 23:46-0400 Body weight 58.[address] Erika Sen Work Phone: 7(100)313-062717 [place] [address] 11-23-2022 09:11-0400 Body height 149.[address] Erika Sen Work Phone: 3(455)034-144917 [place] [address] 11-23-2022 09:11-0400 Body weight 57.[address] Erika Sen Work Phone: 8(675)865-587917 [place] [address] 11-23-2022 08:00-0400 Body temperature 98 [degF] Dr. Erika Sen Work Phone: 6(197)249-976617 [place] [address] 11-23-2022 08:00-0400 Diastolic blood pressure 77 mm[Hg] Dr. Erika Sen Work Phone: 5(567)192-025117 [place] [address] 11-23-2022 08:00-0400 Heart rate 78 /min Dr. Erika Sen Work Phone: 4(530)521-690517 [place] [address] 11-23-2022 08:00-0400 Respiratory rate 23 /min Dr. Erika Sen Work Phone: 6(033)678-845917 [place] [address] 11-23-2022 08:00-0400 SaO2% (BldA) [Mass fraction] 99 % Dr. Erika Sen Work Phone: 9(801)853-147417 [place] [address] 11-23-2022 08:00-0400 Systolic blood pressure 121 mm[Hg] Dr. Erika Sen Work Phone: 1(764)285-136217 [place] [address] 11-23-2022 05:41-0400 Body mass index (BMI) [Ratio] 25.6 kg/m2 Dr. Erika Sen Work Phone: 6(648)511-684217 [place] [address] 11-21-2022 20:24-0400 Body temperature 98.2 [degF] Dr. Erika Sen Work Phone: 4(420)604-20[address] [place] [address] 11-21-2022 20:24-0400 Diastolic blood pressure 67 mm[Hg] Dr. Erika Sen Work Phone: 1(579)428-665817 [place] [address] 11-21-2022 20:24-0400 Heart rate 89 /min Dr. Erika Sen Work Phone: 4(796)371-992317 [place] [address] 11-21-2022 20:24-0400 Respiratory rate 18 /min Dr. Erika Sen Work Phone: 3(350)680-004317 [place] [address] 11-21-2022 20:24-0400 SaO2% (BldA) [Mass fraction] 99 % Dr. Erika Sen Work Phone: 1(835)270-208917 [place] [address] 11-21-2022 20:24-0400 Systolic blood pressure 128 mm[Hg] Dr. rEika Sen Work Phone: 1(264)339-281517 [place] [address] 11-21-2022 17:14-0400 Body mass index (BMI) [Ratio] 28 kg/m2 Dr. Erika Sen Work Phone: 3(509)301-813217 [place] [address] 11-21-2022 17:14-0400 Body weight [address] Erika Sen Work Phone: 3(046)440-833817 [place] [address] 11-21-2022 17:04-0400 Body height 149.[address] Erika Sen Work Phone: 0(809)367-005917 [place] [address] 09-26-2022 15:56-0500 Body mass index (BMI) [Ratio] 28.6 kg/m2 Dr. Erika Sen Work Phone: 6(482)493-726317 [place] [address] 09-26-2022 15:56-0500 Body temperature 98.4 [degF] Dr. Erika Sen Work Phone: 2(559)556-954617 [place] [address] 09-26-2022 15:56-0500 Body weight 64.[address] Erika Sen Work Phone: 6(426)075-237417 [place] [address] 09-26-2022 15:56-0500 Diastolic blood pressure 70 mm[Hg] Dr. Erika Sen Work Phone: 1(036)324-623017 [place] [address] 09-26-2022 15:56-0500 Heart rate 94 /min Dr. Erika Sen Work Phone: 2(435)563-034317 [place] [address] 09-26-2022 15:56-0500 Respiratory rate 18 /min Dr. Erika Sen Work Phone: [facility] 09-26-2022 15:56-0500 SaO2% (BldA) [Mass fraction] 98 % Dr. Erika Sen Work Phone: [facility] 09-26-2022 15:56-0500 Systolic blood pressure 116 mm[Hg] Dr. Erika Sen Work Phone: [facility] 07-23-2022 18:31-0500 Body height 149.86 cm [facility] Work Phone: 07-23-2022 18:31-0500 Body mass index (BMI) [Ratio] 27.2 kg/m2 [facility] Work Phone: 07-23-2022 18:31-0500 Body temperature 98.2 [degF] [facility] Work Phone: 07-23-2022 18:31-0500 Body weight 61.23 kg [facility] Work Phone: 07-23-2022 18:31-0500 Diastolic blood pressure 81 mm[Hg] [facility] Work Phone: 07-23-2022 18:31-0500 Heart rate 105 /min [facility] Work Phone: 07-23-2022 18:31-0500 Respiratory rate 16 /min [facility] Work Phone: 07-23-2022 18:31-0500 SaO2% (BldA) [Mass fraction] 98 % [facility] Work Phone: 07-23-2022 18:31-0500 Systolic blood pressure 136 mm[Hg] [facility] Work Phone: 12-31-2021 10:46-0400 Body temperature 98.2 [degF] Chasity Hodge PA-C Work Phone: [facility] 12-31-2021 10:46-0400 Body weight 58.97 kg Chasity Hodge PA-C Work Phone: [facility] 12-31-2021 10:46-0400 Diastolic blood pressure 78 mm[Hg] Chasity Hodge PA-C Work Phone: [facility] 12-31-2021 10:46-0400 Heart rate 96 /min Chasity Hodge PA-C Work Phone: [facility] 12-31-2021 10:46-0400 Respiratory rate 16 /min Chasity Hodge PA-C Work Phone: [facility] 12-31-2021 10:46-0400 Systolic blood pressure 112 mm[Hg] Chasity Hodge PA-C Work Phone: [facility] 12-26-2021 14:20-0400 Body temperature 98.6 [degF] Aris Chow STOCK CONTROLLER.CHANGER FIXER Work Phone: [facility] 12-26-2021 14:20-0400 Body weight 58.51 kg Aris Geraldo STOCK CONTROLLER.CHANGER FIXER Work Phone: [facility] 12-26-2021 14:20-0400 Diastolic blood pressure 70 mm[Hg] Aris Geraldo STOCK CONTROLLER.CHANGER FIXER Work Phone: [facility] 12-26-2021 14:20-0400 Heart rate 103 /min Aris Geraldo STOCK CONTROLLER.CHANGER FIXER Work Phone: [facility] 12-26-2021 14:20-0400 Respiratory rate 21 /min Aris Geraldo STOCK CONTROLLER.CHANGER FIXER Work Phone: [facility] 12-26-2021 14:20-0400 SaO2% (BldA) [Mass fraction] 98 % Aris Geraldo STOCK CONTROLLER.CHANGER FIXER Work Phone: [facility] 12-26-2021 14:20-0400 Systolic blood pressure 110 mm[Hg] Aris Geraldo STOCK CONTROLLER.CHANGER FIXER Work Phone: [facility] 11-07-2021 08:46-0400 Body height 149.[address] Erika Sen Work Phone: [facility] Work Phone: 11-07-2021 08:46-0400 Body mass index (BMI) [Ratio] 25.8 kg/m2 Dr. Erika Sen Work Phone: [facility] Work Phone: 11-07-2021 08:46-0400 Body temperature 97.3 [degF] Dr. Erika Sen Work Phone: [facility] Work Phone: 11-07-2021 08:46-0400 Body weight 58.[address] Erika Sen Work Phone: [facility] Work Phone: 11-07-2021 08:46-0400 Diastolic blood pressure 92 mm[Hg] Dr. Erika Sen Work Phone: [facility] Work Phone: 11-07-2021 08:46-0400 Heart rate 102 /min Dr. Erika Sen Work Phone: [facility] Work Phone: 11-07-2021 08:46-0400 Respiratory rate 18 /min Dr. Erika Sen Work Phone: [facility] Work Phone: 11-07-2021 08:46-0400 SaO2% (BldA) [Mass fraction] 99 % Dr. Erika Sen Work Phone: [facility] Work Phone: 11-07-2021 08:46-0400 Systolic blood pressure 130 mm[Hg] Dr. Erika Sen Work Phone: [facility] Work Phone: 08-09-2021 09:26-0500 Body mass index (BMI) [Ratio] 25.9 kg/m2 Dr. Erika Sen Work Phone: [facility] Work Phone: 08-09-2021 09:26-0500 Body temperature 97.3 [degF] Dr. Erika Sen Work Phone: [facility] Work Phone: 08-09-2021 09:26-0500 Body weight 58.[address] Erika Sen Work Phone: [facility] Work Phone: 08-09-2021 09:26-0500 Diastolic blood pressure 100 mm[Hg] Dr. Erika Sen Work Phone: [facility] Work Phone: 08-09-2021 09:26-0500 Heart rate 98 /min Dr. Erika Sen Work Phone: [facility] Work Phone: 08-09-2021 09:26-0500 Respiratory rate 18 /min Dr. Erika Sen Work Phone: [facility] Work Phone: 08-09-2021 09:26-0500 SaO2% (BldA) [Mass fraction] 99 % Dr. Erika Sen Work Phone: [facility] Work Phone: 08-09-2021 09:26-0500 Systolic blood pressure 160 mm[Hg] Dr. Erika Sen Work Phone: [facility] Work Phone: 02-10-2021 20:44-0400 SaO2% (BldA) [Mass fraction] 97 % CINDY MANLEY [facility] Comment on above: Performed By: #### [id number] #### [facility],[address] [place] [id number] 04-17-2017 15:43-0400 BMI (Body Mass Index) 26.78 kg/m2 Citlali Levy MD [facility] 04-17-2017 15:43-0400 Body Temperature 97.4 [degF] Citlali Levy MD [facility] 04-17-2017 15:43-0400 Body Temperature 97.39 [degF] Citlali Levy MD [facility] 04-17-2017 15:43-0400 BP Diastolic 75 mm[Hg] Citlali Levy MD [facility] 04-17-2017 15:43-0400 BP Systolic 121 mm[Hg] Citlali Levy MD [facility] 04-17-2017 15:43-0400 Height 149.86 cm Citlali Levy MD [facility] 04-17-2017 15:43-0400 Pulse (Heart Rate) 106 /min Citlali Levy MD [facility] 04-17-2017 15:43-0400 Respiratory Rate 16 /min Citlali Levy MD [facility] 04-17-2017 15:43-0400 Weight 60.15 kg Citlali Levy MD [facility] 04-02-2017 07:53-0400 BMI (Body Mass Index) 25.97 kg/m2 Radha Sterling NP [facility] Work Phone: 04-02-2017 07:53-0400 Body Temperature 98.3 [degF] Radha Sterling FARM MANAGEMENT TEACHER [facility] Work Phone: 04-02-2017 07:53-0400 BP Diastolic 78 mm[Hg] Radha Sterling FARM MANAGEMENT TEACHER [facility] Work Phone: 04-02-2017 07:53-0400 BP Systolic 117 mm[Hg] Radha Sterling FARM MANAGEMENT TEACHER [facility] Work Phone: 04-02-2017 07:53-0400 Height 149.86 cm Radha Sterling NP [facility] Work Phone: 04-02-2017 07:53-0400 Pulse (Heart Rate) 101 /min Radha Sterling FARM MANAGEMENT TEACHER [facility] Work Phone: 04-02-2017 07:53-0400 Respiratory Rate 20 /min Radha Sterling NP [facility] Work Phone: 04-02-2017 07:53-0400 Weight 58.33 kg Radha Sterling FARM MANAGEMENT TEACHER [facility] Work Phone: 03-28-2017 14:50-0400 BMI (Body Mass Index) 26.78 kg/m2 [facility] 03-28-2017 14:50-0400 Body Temperature 97.5 [degF] [facility] 03-28-2017 14:50-0400 BP Diastolic 68 mm[Hg] [facility] 03-28-2017 14:50-0400 BP Systolic 116 mm[Hg] Rose [facility] 03-28-2017 14:50-0400 Height 149.86 cm [facility] 03-28-2017 14:50-0400 Pulse (Heart Rate) 93 /min [facility] 03-28-2017 14:50-0400 Respiratory Rate 16 /min [facility] 03-28-2017 14:50-0400 Weight 60.15 kg Rose [facility] 02-20-2017 11:07-0400 BMI (Body Mass Index) 26.09 kg/m2 Bhumika Cardenas NP [facility] 02-20-2017 11:07-0400 Body Temperature 98.7 [degF] Bhumika Cardenas FARM MANAGEMENT TEACHER [facility] 02-20-2017 11:07-0400 BP Diastolic 70 mm[Hg] Bhumika Cardenas FARM MANAGEMENT TEACHER [facility] 02-20-2017 11:07-0400 BP Systolic 104 mm[Hg] Bhumika Cardenas FARM MANAGEMENT TEACHER [facility] 02-20-2017 11:07-0400 Height 149.86 cm Bhumika Cardenas NP [facility] 02-20-2017 11:07-0400 Pulse (Heart Rate) 97 /min Bhumika Cardenas FARM MANAGEMENT TEACHER [facility] 02-20-2017 11:07-0400 Respiratory Rate 16 /min Bhumika Cardenas FARM MANAGEMENT TEACHER [facility] 02-20-2017 11:07-0400 Weight 58.61 kg Bhumika Cardenas NP [facility] 01-15-2017 10:06-0400 BMI (Body Mass Index) 27.55 kg/m2 Radha Sterling NP [facility] Work Phone: 01-15-2017 10:06-0400 Body Temperature 98.4 [degF] Radha Sterling FARM MANAGEMENT TEACHER [facility] Work Phone: 01-15-2017 10:06-0400 BP Diastolic 68 mm[Hg] Radha Sterling FARM MANAGEMENT TEACHER [facility] Work Phone: 01-15-2017 10:06-0400 BP Systolic 113 mm[Hg] Radha Sterling FARM MANAGEMENT TEACHER [facility] Work Phone: 01-15-2017 10:06-0400 Height 149.86 cm Radha Sterling NP [facility] Work Phone: 01-15-2017 10:06-0400 Pulse (Heart Rate) 92 /min Radha Sterling NP [facility] Work Phone: 01-15-2017 10:06-0400 Respiratory Rate 18 /min Radha Sterling NP [facility] Work Phone: 01-15-2017 [id number] Weight 61.87 kg Radha tSerling NP [facility] Work Phone: 01-02-2017 13:23-0400 BMI (Body Mass Index) 27.34 kg/m2 [facility] Work Phone: 01-02-2017 13:23-0400 Body Temperature 98 [degF] [facility] Work Phone: 01-02-2017 13:23-0400 BP Diastolic 64 mm[Hg] Arti Cassidy [facility] Work Phone: 01-02-2017 13:23-0400 BP Systolic 108 mm[Hg] Arti Cassidy [facility] Work Phone: 01-02-2017 13:23-0400 Height 149.86 cm [facility] Work Phone: 01-02-2017 13:23-0400 Pulse (Heart Rate) 84 /min Arti Cassidy [facility] Work Phone: 01-02-2017 13:23-0400 Pulse Oximetry 97 % Arti Cassidy [facility] Work Phone: 01-02-2017 13:23-0400 Respiratory Rate 20 /min [facility] Work Phone: 01-02-2017 13:23-0400 Weight 61.42 kg [facility] Work Phone: Encounters Encounter Date Encounter Type Care Provider Facility Start: 11-28-2024 Non-patient / Non-visit Dr. Damien Rosario [facility] Work Phone: Start: 11-27-2024 ambulatory Minnie Hodge Fa cility:[facility] Start: 11-27-2024 End: 11-28-2024 Evaluation and management of inpatient Dr. Zaida Hoff MD -Intensive Care Unit Work Phone: Start: 11-26-2024 End: 11-26-2024 Emergency department patient visit Minnie Hodge -Emergency Department Work Phone: Start: 11-11-2024 End: 11-11-2024 Patient encounter procedure Emil Overton [facility] Work Phone: Start: 11-11-2024 End: 11-11-2024 ambulatory Minnie Hodge Facility:[facility] Start: 11-04-2024 End: 11-04-2024 Refill Veronika Dorado STOCK CONTROLLER.CHANGER FIXER Work Phone: Endocrinology Comment on above: Refill Request Start: 10-04-2024 End: 10-04-2024 Emergency department patient visit Minnie Hodge -Emergency Department Work Phone: Start: 09-13-2024 Encounter for gynecological examination (general) (routine) without abnormal findings [facility] Start: 09-13-2024 End: 09-13-2024 Patient encounter procedure Maddy MAN -[facility] @ Start: 09-13-2024 End: 09-13-2024 Patient encounter status Maddy MAN [facility] Start: 09-13-2024 End: 09-13-2024 ambulatory Minnie Hodge Facility:[facility] Start: 08-19-2024 End: 08-19-2024 Telephone encounter Evelyn Carr MD Work Phone: [address] [place] [address] Start: 08-18-2024 End: 08-18-2024 ambulatory JUAN CARLOS Jimenez [facility] Facility:[facility] Start: 08-18-2024 End: 08-18-2024 Patient encounter procedure Aris Chow APRN.CNP Work Phone: [facility] Comment on above: Bacterial sinusitis (Primary Dx); Diarrhea, unspecified type Start: 06-15-2024 End: 06-15-2024 ambulatory Veronika Dorado APRN.CNP Work Phone: Endocrinology Comment on above: Appt Needed Start: 06-15-2024 End: 06-15-2024 E-mail encounter from caregiver Veronika Pancho Dorado APRN.CNP Work Phone: Endocrinology Start: 06-15-2024 End: 06-15-2024 Telephone encounter Veronika Dorado APRN.CHANGER FIXER Work Phone: Endocrinology Comment on above: Medication Problem Start: 05-13-2024 End: 05-14-2024 ambulatory Minnie Hodge Facility:[facility] Start: 05-12-2024 End: 05-12-2024 Emergency department patient visit Rony Delgadillo Facility:[facility] Start: 05-07-2024 End: 05-07-2024 ambulatory [facility] Facility:[facility] Start: 05-07-2024 End: 05-07-2024 Office outpatient visit 25 minutes Arjun Kim MD Work Phone: [facility] Comment on above: Gastroenteritis (Cira robbie Dx) Start: 04-16-2024 End: 04-16-2024 E-mail encounter from caregiver Veronika Dorado APRN.CNP Work Phone: Endocrinology Start: 04-16-2024 End: 04-16-2024 Follow-up encounter Veronika Dorado APRN.CNP Work Phone: Endocrinology Comment on above: Follow-up Start: 04-14-2024 End: 04-14-2024 Refill Veronika Dorado APRN.LIZZY Work Phone: Endocrinology Comment on above: Refill Request Prior Authorization BMV Form For Provide r Statement Type 1 diabetes jyo itus without complication (HCC) (Primary Dx) Start: 04-12-2024 End: 04-12-2024 Telephone encounter Veronika Dorado APRN.LIZZY Work Phone: Endocrinology Comment on above: Provider Statement f or Driving Start: 04-05-2024 End: 04-05-2024 ambulatory Veronika Dorado APRN.LIZZY Work Phone: Endocrinology Comment on above: Insurance Start: 04-05-2024 End: 04-05-2024 E-mail encounter from caregiver Veronika Dorado APRN.CNP Work Phone: Endocrinology Start: 04-05-2024 End: 04-05-2024 Telephone encounter Veronika Dorado APRN.CNP Work Phone: Endocrinology Start: 04-01-2024 End: 04-19-2024 Refill Priti Camarillo MD Work Phone: Endocrinology Comment on above: Refill Request Orders (Referral to education) Start: 03-25-2024 End: 03-25-2024 Subsequent hospital visit by physician Elly [facility] Work Phone: Radiology Comment on above: Pain [R52] Start: 03-25-2024 End: 03-25-2024 ambulatory JUAN CARLOS CANDELARIO Facility:[facility] Start: 03-25-2024 End: 03-25-2024 Patient encounter procedure Rosa Isela Gonzalez APRN.CNP Work Phone: [facility] Comment on above: Pain (Primary Dx) Start: 03-10-2024 End: 03-10-2024 ambulatory EVELYN CARR Facility:[facility] Start: 03-10-2024 End: 03-10-2024 Patient encounter procedure Evelyn Carr MD Work Phone: OB/Gynecology Comment on above: Insertion of implant able subdermal contraceptive (Primary Dx) Start: 03-01-2024 End: 03-01-2024 ambulatory EVELYN CARR Facility:[facility] Start: 03-01-2024 Encounter for genera l adult medical examination without abnormal findings EVELYN CARR [facility] Start: 03-01-2024 End: 03-01-2024 Patient encounter procedure Evelyn Carr MD Work Phone: OB/Gynecology Comment on above: Encounter for gyneco logical examination (general) (routine) without abnormal findings (Primary Dx); Well adult exam; Screening for cervical cancer; Encounter for screening for human papillomavirus (HPV); Screen for STD (sexually transmitted disease); Insertion of Nexplanon; Encounter for removal and reinsertion of Nexplanon Start: 03-01-2024 End: 03-01-2024 Patient encounter status Evelyn Carr MD Work Phone: [facility] Start: 02-04-2024 End: 02-04-2024 ambulatory Veronika Dorado APRN.CNP Work Phone: Endocrinology Comment on above: [employer] Start: 02-04-2024 E-mail encounter fro m caregiver Veronika Dorado APRN.CNP Work Phone: Endocrinology Start: 02-04-2024 End: 02-04-2024 Patient encounter procedure Veronika Dorado APRN.CNP Work Phone: Endocrinology Comment on above: Type 1 diabetes joy itus without complication (HCC) (Primary Dx) Start: 01-28-2024 Ophthalmic examinati on and evaluation Veronika Dorado APRN.CNP Work Phone: [facility] Start: 01-27-2024 End: 01-27-2024 ambulatory [facility] Facility:[facility] Start: 01-27-2024 End: 01-27-2024 Patient encounter procedure Chasity Hodge PA-C Work Phone: [facility] Longo Comment on above: Well adult exam (Cira robbie Dx); Type 1 diabetes mellitus without complication (HCC); Mild intermittent asthma without complication; Encounter for immunization; ARELIS (generalized anxiety disorder) Start: 01-27-2024 End: 01-27-2024 Patient encounter status Chasity Hodge PA-C Work Phone: [facility] Work Phone: Start: 01-07-2024 End: 01-07-2024 Nursing evaluation of patient and report Jackeline Shukla RN Work Phone: Endocrinology Comment on above: Type 1 diabetes joy itus without complication (HCC) (Primary Dx) Start: 01-07-2024 End: 01-07-2024 ambulatory JUAN CARLOS CANDELARIO Facility:[facility] Start: 12-25-2023 Telephone encounter Chasity trotter PA-C Work Phone: [facility] Comment on above: Orders Start: 12-24-2023 End: 12-24-2023 ambulatory CHASITY HODGE Facility:[facility] Start: 12-24-2023 End: 12-24-2023 Patient encounter procedure Chasity Hodge PA-C Work Phone: [facility] Comment on above: Type 1 diabetes joy itus with hyperglycemia (HCC) (Primary Dx); Encounter for lipid screening for cardiovascular disease Start: 11-28-2023 [facility] Work [facility]: Start: 11-27-2023 [facility] Work Phone: Start: 11-26-2023 Non-patient / Non-visit Minn[facility] Start: 11-26-2023 Non-patient / Non-visit [facility] Start: 11-26-2023 End: 11-28-2023 [facility] Start: 11-26-2023 Non-patient / Non-visit [facility] Work Phone: Start: 11-11-2023 End: 11-11-2023 Emergency department patient visit [facility] Work Phone: Start: 10-17-2023 Non-patient / Non-visit [facility] Work Phone: Start: 10-16-2023 Non-patient / Non-visit [facility] Work Phone: Start: 10-16-2023 End: 10-17-2023 [facility] Work [facility] Start: 08-23-2023 End: 08-23-2023 Emergency department patient visit [facility] Work Phone: Start: 08-13-2023 End: 08-13-2023 ambulatory [facility] Work Phone: Start: 08-13-2023 End: 08-13-2023 [facility] Work [facility]: Start: 05-12-2023 End: 05-12-2023 Patient encounter procedure [facility] Work Phone: Start: 04-07-2023 End: 04-07-2023 Patient encounter procedure Arely Velez APRN.CHANGER FIXER Work Phone: [facility] Comment on above: Exposure to SARS-ass ociated coronavirus (Primary Dx); Sore throat Start: 03-27-2023 Telephone encounter Juan Carlos Candelario MD Work Phone: [facility] Comment on above: Fax last OV note Start: 03-04-2023 Dr. Erika riddle Work Phone: [facility] Work Phone: Start: 03-03-2023 End: 03-05-2023 Evaluation and management of inpatient Dr. Erika Sen Work Phone: [facility] Work Phone: Start: 03-03-2023 End: 03-05-2023 Dr. Erika Sen Work Phone: [facility]-Intensive Care Unit Work Phone: Start: 03-03-2023 End: 03-03-2023 Patient encounter procedure Chasity Hodge PA-C Work Phone: [facility] Comment on above: Type 1 diabetes joy itus without complication (HCC) (Primary Dx); Nausea Start: 03-01-2023 End: 03-02-2023 Dr. Erika Sen Work Phone: [facility]-Emergency Department Work Phone: Start: 02-17-2023 Dr. Erika riddle Work Phone: [facility] Work Phone: Start: 02-16-2023 Non-patient / Non-visit Dr. Carol Sen Work Phone: [facility] Work Phone: Start: 02-16-2023 Dr. Erika riddle Work Phone: [facility] Work Phone: Start: 02-15-2023 End: 02-17-2023 Evaluation and management of inpatient Dr[facility] Erika Sen [facility] Start: 02-15-2023 End: 02-17-2023 Dr. Erika Sen Work Phone: [facility] Surgical 3 Work Phone: Start: 01-16-2023 Telephone encounter Kaylen Richardson corbinozzy [facility] Work Phone: Psychology Comment on above: bh consult Start: 01-16-2023 End: 01-16-2023 Patient encounter procedure Chasity Hodge PA-C Work Phone: [facility] Comment on above: Depression, unspecif ied depression type (Primary Dx); Bipolar affective disorder, remission status unspecified (HCC) Start: 01-13-2023 End: 01-13-[address] Erika Sen Work Phone: [facility] Work Phone: Start: 01-13-2023 End: 01-13-2023 Dr. Erika Sen Work Phone: [facility] Work Phone: Start: 01-06-2023 Refill Juan Carlos quezada MD Work Phone: [facility] Comment on above: Refill Request Start: 12-27-2022 Non-patient / Non-visit Dr. Carol Sen Work Phone: [facility] Work Phone: Start: 12-27-2022 Dr. Erika riddle Work Phone: [facility] Work Phone: Start: 12-26-2022 Non-patient / Non-visit Dr. Carol Sen Work Phone: [facility] Work Phone: Start: 12-26-2022 Dr. Erika riddle Work Phone: [facility] Work Phone: Start: 12-26-2022 Non-patient / Non-visit Dr. Carol Sen Work Phone: [facility] Start: 12-26-2022 Dr. Erika riddle Work Phone: [facility] Start: 12-25-2022 Non-patient / Non-visit Dr. Carol Sen Work Phone: [facility] Work Phone: Start: 12-25-2022 Dr. Erika riddle Work Phone: [facility] Work Phone: Start: 12-24-2022 Non-patient / Non-visit Dr. Carol Sen Work Phone: [facility] Start: 12-24-2022 Dr. Erika riddle Work Phone: [facility] Start: 12-24-2022 End: 12-27-2022 Evaluation and management of inpatient Dr. Erika Sen Work Phone: [facility] Start: 12-24-2022 End: 12-27-2022 Dr. Erika Sen Work Phone: [facility] 3 Work Phone: Start: 11-23-2022 Non-patient / Non-visit Dr. Carol Sen Work Phone: [facility] Start: 11-23-2022 Dr. Erika riddle Work Phone: [facility] Work Phone: Start: 11-22-2022 Non-patient / Non-visit Dr. Carol Sen Work Phone: [facility] Start: 11-22-2022 Dr. Erika riddle Work Phone: [facility] Work Phone: Start: 11-21-2022 End: 11-23-2022 Evaluation and management of inpatient [facility] Erika [facility] Start: 11-21-2022 End: 11-23-2022 Dr. Erika Sen [facility] Work Phone: Start: 09-26-2022 End: 09-26-[address] Erika Sen Work Phone: [facility] Endocrinology Start: 07-23-2022 End: 07-23-2022 Emergency department patient visit [facility] Start: 12-31-2021 End: 12-31-2021 Patient encounter procedure Chasity Hodge PA-C Work Phone: [facility] [place] Comment on above: Upper back strain, i nitial encounter (Primary Dx) Start: 12-26-2021 End: 12-26-2021 Patient encounter procedure Aris Chow APRN.CHANGER FIXER Work Phone: [facility] Comment on above: Acute midline low ba ck pain without sciatica (Primary Dx) Start: 11-07-2021 End: 11-07-[address] Erika Sen Work Phone: [facility] Endocrinology Start: 08-09-2021 End: 08-09-[address] Erika Sen Work Phone: [facility] End[facility] Start: 02-10-2021 End: 02-12-2021 Evaluation and management of inpatient CINDY MANLEY [facility] Start: 05-05-2020 End: 05-05-2020 [facility] Comment on above: Hand pain, right [M7 9.641] Procedures Date Procedure Procedure Detail Performing Clinician Start: 11-28-2024 Estimated creatinine clearance Minnie Hodge Start: 11-27-2024 Urnls dip stick/tabl et reagent auto microscopy Minnie Hodge Start: 11-27-2024 X-ray of chest, PA a nd lateral views Minnie Hodge Start: 11-27-2024 Estimated creatinine clearance Minnie Hodge Start: 11-26-2024 Estimated creatinine clearance Minnie Naveen Start: 11-26-2024 Urnls dip stick/tabl et reagent auto microscopy Minnie Hodge Start: 10-04-2024 Plain X-ray of finger C davida Naveen Start: 03-25-2024 Radex spine lumbosac ral 2/3 views Rosa Isela Gonzalez APRN.CHANGER FIXER Work Phone: Start: 03-10-2024 UA DIP,URINE HCG (POC) Evelyn Carr MD Work Phone: Start: 01-27-2024 Adult depression screening assessment Evelyn Carr MD Work Phone: Start: 11-26-2023 Streptococcus pyogen es rRNA assay Minnie Hodge Start: 11-26-2023 CT of abdomen and pelvis without contrast Minnie Hodge Start: 08-23-2023 SARS-CoV-2, Influenz a & RSV (PCR) Minnie Hodge Start: 08-23-2023 Plain chest X-ray Edouard prado Naveen Start: 04-07-2023 STREP A MOLECULAR (POC) [facility] Provider Start: 03-03-2023 Urnls dip stick/tabl et rgnt auto w/o microscopy Chasity [facility] Work Phone: Start: 03-03-2023 Gluc bld gluc mntr d ev cleared fda spec home use Chasity [facility] Work Phone: Start: 03-02-2023 Computed tomography of abdomen and pelvis with intravenous contrast Dr. Erika Sen Work Phone: Start: 03-01-2023 Plain chest X-ray Dr. Pancho Sen Work Phone: Start: 02-15-2023 Radiographic procedu re of chest Dr. Erika Sen Work Phone: Start: 12-26-[address] Sharon Sen Work Phone: Start: 12-25-2022 Plain chest X-ray Dr. Pancho Sen Work Phone: Start: 12-24-2022 CT of abdomen and pelvis without contrast Dr. Erika Sen Work Phone: Start: 11-22-[address] Sharon Sen Work Phone: Start: 02-10-2021 Urinalysis CINDY CANTU Comment on above: Result Comment: URIN ALYSIS Performed By: #### 2 [id number] #### [facility],[address] [place] [address] Start: 05-05-2020 Radex hand minimum 3 views Judit Joe APRN.CHANGER FIXER Work Phone: Start: 03-04-2019 Adult depression screening assessment Aris Chow APRN.CHANGER FIXER Work Phone: Start: 04-17-2017 End: 04-21-2017 Etonogestrel (contraceptive) implant system, including implant and supplies Citlali Levy MD Work Phone: Start: 04-17-2017 End: 04-21-2017 Rmvl w/rinsj non-biodegradable drug dlvr implt Citlali Levy MD Work Phone: Start: 04-17-2017 End: 04-21-2017 Etonogestrel (contraceptive) implant system, including implant and supplies Citlali Levy MD Work Phone: Start: 04-17-2017 End: 04-21-2017 Remove/insert drug implant Citlali Levy MD Work Phone: Start: 04-02-2017 End: 04-03-2017 *CMP Complete Metabolic Panel Radha Sterling [employer]ARM MANAGEMENT TEACHER Work Phone: Start: 04-02-2017 End: 04-03-2017 Hemoglobin A1c/Hemoglobin.total in Blood Radha Sterling FARM MANAGEMENT TEACHER Work Phone: Start: 04-02-2017 End: 04-03-2017 *CMP Complete Metabolic Panel Radha Sterling FARM MANAGEMENT TEACHER Work Phone: Start: 04-02-2017 End: 04-03-2017 HbA1c Radha J Hallie FARM MANAGEMENT TEACHER Work Phone: Start: 02-20-2017 Contraception care education Contraception counseling Citlali Levy MD Start: 02-20-2017 End: 02-20-2017 Urine test visual color cmprsn shantel Cardenas FARM MANAGEMENT TEACHER Work Phone: Start: 02-20-2017 Contraception care education Contraception counseling Citlali Levy MD Start: 02-20-2017 End: 02-20-2017 Urine test visual color cmprsn shantel Arevalos FARM MANAGEMENT TEACHER Work Phone: Start: 02-20-2017 End: 02-20-2017 Urine, test (choriogonadotropin presence) Bhumika Cardenas FARM MANAGEMENT TEACHER Work Phone: Start: 01-15-2017 End: 01-15-2017 Thyrotropin [Units/volume] in Serum or Plasma Radha Sterling FARM MANAGEMENT TEACHER Work Phone: Start: 01-15-2017 End: 01-15-2017 Thyroid stimulating hormone (TSH) Radha Sterling FARM MANAGEMENT TEACHER Work Phone: Start: 01-02-2017 End: 01-02-2017 Dietary management education, guidance, and counseling Arti Cassidy Urine culture Dr. Erika riddle Work Phone: Plan of Treatment Date Care Activity Detail Author Start: 03-01-2027 Screening for malignant neoplasm of cervix Cervical Cancer Screening [facility] Start: 01-26-2025 Annual PCP Team Chronic Disease Visit Annual PCP Team Chronic Disease Visit [facility] Start: 01-26-2025 Covid-19 Vaccine () Covid-19 Vaccine () [facility] Comment on above: Postponed from 03/21/2023 (Declined at t his time) Start: 01-26-2025 Depression Screening Depression Screening [facility] Start: 01-26-2025 Diabetic foot examination Diabetic Foot Exam [facility] Start: 01-26-2025 HIV screening HIV Screening [facility] Comment on above: Postponed from 2016 (Declined at t his time) Start: 01-18-2025 Urine microalbumin profile [facility] Start: 12-23-2024 Annual PCP Team Chronic Disease Visit Annual PCP Team Chronic Disease Visit [facility] Start: 12-23-2024 Hepatitis B screening Urine Albumin:Creatinine Ratio [facility] Start: 12-23-2024 Hepatitis B surface antibody level LDL Cholesterol [facility] Start: 11-28-2024 Patient discharge [facility] Start: 11-28-2024 [facility] Start: 11-27-2024 Care of central venous catheter [facility] Start: 11-27-2024 Application of intermittent pneumatic compression device [facility] Start: 11-27-2024 End: 11-27-2024 Following clinical pathway protocol [facility] Start: 11-27-2024 Lab findings surveillance [facility] Start: 11-27-2024 Patient education [facility] Start: 11-27-2024 Care regimes management [facility] Start: 11-27-2024 End: 11-27-2024 Notification of physician [facility] Start: 11-27-2024 Assessment of risk of venous thromboembolism [facility] Start: 11-27-2024 Continuous pulse oximetry [facility] Start: 11-27-2024 Insertion of catheter into peripheral vein [facility] Start: 11-27-2024 Measuring intake and output [facility] Start: 11-27-2024 Providing care according to standard [facility] Start: 11-27-2024 Vital signs measurements [facility] Start: 11-27-2024 End: 11-27-2024 [facility] Start: 11-27-2024 Admission procedure [facility] Start: 11-27-2024 Hospital admission, emergency, from emergency room, medical nature [facility] Start: 11-27-2024 End: 11-27-2024 [facility] Start: 11-27-2024 Consultation [facility] Start: 11-26-2024 End: 11-27-2024 [facility] Start: 10-04-2024 [facility] Start: 07-29-2024 End: 07-29-2024 Patient encounter procedure 07/29/2024 9:40 AM EST Office Visit [facility] [address] [facility] [place] [address] Chasity Hodge PA-C [address] [facility] [id number] 6 month f/u [facility] Comment on above: 6 month f/u Start: 07-21-2024 End: 10-20-2024 Comprehensive metabolic 2000 panel - Serum or Plasma COMPREHENSIVE METABOLIC PANEL Lab Routine Type 1 diabetes mellitus without complication (HCC) Expected: 07/21/2024, Expires: 10/20/2024 [facility] Work Phone: Comment on above: Expected: 07/21/2024, Expires: Start: 07-21-2024 End: 10-20-2024 Hemoglobin A1c in Blood HEMOGLOBIN A1C Lab Routine Type 1 diabetes mellitus without complication (HCC) Expected: 07/21/2024, Expires: 10/20/2024 [facility] Comment on above: Expected: 07/21/2024, Expires: Start: 07-21-2024 End: 10-20-2024 LIPID PANEL, NONFASTING LIPID PANEL, NONFASTING Lab Routine Type 1 diabetes mellitus without complication (HCC) Expected: 07/21/2024, Expires: 10/20/2024 [facility] Comment on above: Expected: 07/21/2024, Expires: Start: 07-21-2024 End: 10-20-2024 Microalbumin/Creatinine [Mass Ratio] in Urine ALBUMIN/CREATININE RATIO, URINE Lab Routine Type 1 diabetes mellitus without complication (HCC) Expected: 07/21/2024, Expires: 10/20/2024 [facility] Comment on above: Expected: 07/21/2024, Expires: Start: 06-09-2024 End: 06-09-2024 Patient encounter procedure 06/09/2024 11:45 AM EST Office Visit Endocrinology [address] [facility] [place] [address] Veronika Dorado, STOCK CONTROLLER.CHANGER FIXER [address] [place] [address] 4 mo f/up Endocrinology Comment on above: 4 mo f/up Start: 04-14-2024 End: 04-14-2024 Nursing evaluation of patient and report 04/14/2024 1:00 PM EDT Nurse Visit Endocrinology [address] [place] [address] Jackeline Shukla, RN [address] [address] Insulin pump training Endocrinology Comment on above: Insulin pump training Start: 03-25-2024 Hemoglobin A1c measurement HbA1C [facility] Start: 03-21-2024 Covid-19 Vaccine ( season) Covid-19 Vaccine () [facility] Start: 03-21-2024 Covid-19 Vaccine () Covid-19 Vaccine () [facility] Start: 03-21-2024 Influenza vaccination [facility] Start: 03-16-2024 End: 03-16-2024 Nursing evaluation of patient and report 03/16/2024 1:00 PM EDT Nurse Visit Endocrinology [address] [place] [address] Jackeline Shukla, RN [address] [address] Insulin pump training Endocrinology Comment on above: Insulin pump training Start: 03-10-2024 End: 03-10-2024 Patient encounter procedure 03/10/2024 10:30 AM EDT Office Visit OB/Gynecology [address] [place], [place] [id number] Evelyn Carr MD [address] [place] [address] Encounter for removal and reinsertion of Nexplanon [Z30.46] OB/Gynecology Comment on above: Encounter for removal and reinsertion of Nexplanon [Z30.46] Start: 03-03-2024 ANNUAL PCP TEAM CHRONIC DISEASE VISIT ANNUAL PCP TEAM CHRONIC DISEASE VISIT [facility] Start: 03-01-2024 End: 05-31-2024 Hepatitis B virus surface Ag [Presence] in Serum HEPATITIS B SURFACE ANTIGEN Lab Routine Screen for STD (sexually transmitted disease) Expected: 03/01/2024, Expires: 05/31/2024 [facility] Comment on above: Expected: 03/01/2024, Expires: 4 Start: 03-01-2024 End: 05-31-2024 Hepatitis C virus Ab [Presence] in Serum HEPATITIS C ANTIBODY IA WITH CONFIRMATION Lab Routine Screen for STD (sexually transmitted disease) Expected: 03/01/2024, Expires: 05/31/2024 [facility] Comment on above: Expected: 03/01/2024, Expires: 4 Start: 03-01-2024 End: 05-31-2024 HIV 1+2 Ab [Presence] in Serum or Plasma by Immunoassay HIV 1/2 COMBO WITH REFLEX TO DIFFERENTIATION Lab Routine Screen for STD (sexually transmitted disease) Expected: 03/01/2024, Expires: 05/31/2024 [facility] Comment on above: Expected: 03/01/2024, Expires: Start: 03-01-2024 End: 05-31-2024 SYPHILIS TOTAL W/REFLEX SYPHILIS TOTAL W/REFLEX Lab Routine Screen for STD (sexually transmitted disease) Expected: 03/01/2024, Expires: 05/31/2024 [facility] Work Phone: Comment on above: Expected: 03/01/2024, Expires: 4 Start: 03-01-2024 End: 03-01-2024 Patient encounter procedure 03/01/2024 11:10 AM EDT Office Visit OB/Gynecology [address] [place] [address] Evleyn Carr MD [address] [place] [id number] Well adult exam [Z00.00] OB/Gynecology Comment on above: Well adult exam [Z00.00] Start: 02-09-2024 End: 02-09-2024 Patient encounter procedure 02/09/2024 8:30 AM EDT Office Visit [facility] Ophthalmology [address] [place] [address] Agueda Olivera, OD [address] [place] [address] Type 1 diabetes mellitus without complication (HCC) [E10.9] Ophthalmology Comment on above: Type 1 diabetes mellitus without complic ation (HCC) [E10.9] Start: 02-04-2024 End: 02-04-2024 Patient encounter procedure 02/04/2024 10:15 AM EDT Office Visit Endocrinology [address] [place] [address] Veronika Dorado APRN.CHANGER FIXER [address] [place] [address] Type 1 diabetes mellitus with hyperglycemia (HCC) [E10.65] Endocrinology Comment on above: Type 1 diabetes mellitus with hyperglyce sha (HCC) [E10.65] Start: 01-27-2024 End: 01-27-2024 Patient encounter procedure 01/27/2024 9:40 AM EDT Office Visit [facility] [place] [address] [place] [address] Chasity Hodge PA-C [address] [place] [address] Physical & Anel [facility] [place] Comment on above: Physical & Anel Start: 01-17-2024 ANNUAL PCP TEAM CHRONIC DISEASE VISIT ANNUAL PCP TEAM CHRONIC DISEASE VISIT [facility] Start: 01-07-2024 End: 01-07-2024 Nursing evaluation of patient and report Endocrinology Comment on above: Type 1 diabetes mellitus with hyperglyce sha (HCC) [E10.65] Start: 11-28-2023 Patient discharge [facility] Start: 11-28-2023 Care regimes management [facility] Start: 11-28-2023 Notification of physician [facility] Start: 11-28-2023 [facility] Start: 11-27-2023 Lab findings surveillance [facility] Start: 11-27-2023 Following clinical pathway protocol [facility] Start: 11-27-2023 Notification of physician [facility] Start: 11-27-2023 Patient education [facility] Start: 11-27-2023 Vital signs measurements [facility] Start: 11-27-2023 [facility] Start: 11-27-2023 Blood chemistry [facility] Start: 11-27-2023 Peripherally inserted central catheter care [facility] Start: 11-27-2023 Blood chemistry [facility] Start: 11-27-2023 Blood chemistry [facility] Start: 11-26-2023 Blood chemistry [facility] Start: 11-26-2023 Blood chemistry [facility] Start: 11-26-2023 Blood chemistry [facility] Start: 11-26-2023 Enteric precautions [facility] Start: 11-26-2023 End: 11-26-2023 Following clinical pathway protocol [facility] Start: 11-26-2023 Gas panel - Arterial blood [facility] Start: 11-26-2023 Lab findings surveillance [facility] Start: 11-26-2023 Notification of physician [facility] Start: 11-26-2023 Patient education [facility] Start: 11-26-2023 Urine test [facility] Start: 11-26-2023 Vital signs measurements [facility] Start: 11-26-2023 End: 11-27-2023 [facility] Start: 11-26-2023 Blood chemistry [facility] Start: 11-26-2023 Referral to general surgeon [facility] Start: 11-26-2023 Clostridioides difficile DNA [Presence] in Unspecified specimen by JEANNETTE with probe detection [facility] Start: 11-26-2023 Gastrointestinal pathogens panel - Stool by JEANNETTE with probe detection [facility] Start: 11-26-2023 Lactoferrin [Presence] in Stool by Immunoassay [facility] Start: 11-26-2023 Admission procedure [facility] Start: 11-11-2023 [facility] Start: 10-17-2023 Blood chemistry [facility] Start: 10-17-2023 Blood chemistry [facility] Start: 10-17-2023 Patient discharge [facility] Start: 10-17-2023 Care planning and problem solving actions [facility] Start: 10-17-2023 Blood chemistry [facility] Start: 10-17-2023 Blood chemistry [facility] Start: 10-17-2023 Blood chemistry [facility] Start: 10-16-2023 Blood chemistry [facility] Start: 10-16-2023 Assessment of risk of venous thromboembolism [facility] Start: 10-16-2023 Continuous pulse oximetry [facility] Start: 10-16-2023 End: 10-16-2023 Following clinical pathway protocol [facility] Start: 10-16-2023 Insertion of catheter into peripheral vein [facility] Start: 10-16-2023 Lab findings surveillance [facility] Start: 10-16-2023 Measuring intake and output [facility] Start: 10-16-2023 Notification of physician [facility] Start: 10-16-2023 Patient education [facility] Start: 10-16-2023 Providing care according to standard [facility] Start: 10-16-2023 Vital signs measurements [facility] Start: 10-16-2023 [facility] Start: 10-16-2023 Blood chemistry [facility] Start: 10-16-2023 Admission procedure [facility] Start: 10-16-2023 [facility] Start: 07-21-2023 Behavioral Health Screening Behavioral Health Screening [facility] Start: 07-20-2023 Glaucoma screening Dilated Retinal Exam [facility] Start: 03-21-2023 Covid-19 Vaccine ( season) Covid-19 Vaccine () [facility] Start: 03-21-2023 Influenza vaccination [facility] Start: 03-05-2023 Patient discharge [facility] Start: 03-03-2023 Ambulation without limitation [facility] Start: 03-03-2023 Assessment of risk of venous thromboembolism [facility] Start: 03-03-2023 Care regimes management [facility] Start: 03-03-2023 Continuous pulse oximetry [facility] Start: 03-03-2023 End: 03-03-2023 Following clinical pathway protocol [facility] Start: 03-03-2023 Insertion of catheter into peripheral vein [facility] Start: 03-03-2023 Measuring intake and output [facility] Start: 03-03-2023 Notification of physician [facility] Start: 03-03-2023 Patient education [facility] Start: 03-03-2023 Patient referral to dietitian [facility] Start: 03-03-2023 Providing care according to standard [facility] Start: 03-03-2023 Vital signs measurements [facility] Start: 03-03-2023 [facility] Start: 03-03-2023 Verification routine [facility] Start: 03-03-2023 Admission procedure [facility] Start: 03-02-2023 Gas panel - Venous blood [facility] Start: 03-01-2023 Assay of lactate [facility] Start: 03-01-2023 Assay of lipase [facility] Start: 03-01-2023 Basic metabolic panel calcium total [facility] Start: 03-01-2023 Blood count complete auto&auto difrntl wbc [facility] Start: 03-01-2023 Blood gases any combination ph pco2 po2 co2 hco3 [facility] Start: 03-01-2023 Ct abdomen & pelvis w/contrast material [facility] Start: 03-01-2023 Emergency department visit low/moder [facility] [facility] Start: 03-01-2023 Gluc bld gluc mntr dev cleared fda spec home use [facility] Start: 03-01-2023 Hepatic function panel [facility] Start: 03-01-2023 Ketone bodies serum qualitative [facility] Start: 03-01-2023 Radiologic exam chest 2 views [facility] Start: 03-01-2023 Ther proph/dx njx iv push single/1st sbst/drug [facility] Start: 03-01-2023 Therapeutic injection iv push each new drug [facility] Start: 03-01-2023 Urine test visual color cmprsn meths [facility] Start: 03-01-2023 Urnls dip stick/tablet reagent auto microscopy [facility] Start: 02-17-2023 Patient discharge [facility] Start: 02-16-2023 [facility] Start: 02-16-2023 Notification of physician [facility] Start: 02-15-2023 Ambulation without limitation [facility] Start: 02-15-2023 Assessment of risk of venous thromboembolism [facility] Start: 02-15-2023 Care regimes management [facility] Start: 02-15-2023 Inhalation therapy procedure [facility] Start: 02-15-2023 Insertion of catheter into peripheral vein [facility] Start: 02-15-2023 Measuring intake and output [facility] Start: 02-15-2023 Oxygen therapy [facility] Start: 02-15-2023 Patient education [facility] Start: 02-15-2023 Patient referral to dietitian [facility] Start: 02-15-2023 Providing care according to standard [facility] Start: 02-15-2023 Vital signs measurements [facility] Start: 02-15-2023 [facility] Start: 02-15-2023 Care of central venous catheter [facility] Start: 02-15-2023 Following clinical pathway protocol [facility] Start: 02-15-2023 Verification routine [facility] Start: 02-15-2023 Admission procedure [facility] Start: 12-31-2022 ANNUAL PCP TEAM CHRONIC DISEASE VISIT ANNUAL PCP TEAM CHRONIC DISEASE VISIT [facility] Start: 12-27-2022 Patient discharge [facility] Start: 12-26-2022 Provision of activity privileges [facility] Start: 12-24-2022 [facility] Start: 12-24-2022 Consultation [facility] Start: 12-24-2022 Ambulation without limitation [facility] Start: 12-24-2022 Assessment of risk of venous thromboembolism [facility] Start: 12-24-2022 Continuous pulse oximetry [facility] Start: 12-24-2022 End: 12-24-2022 Following clinical pathway protocol [facility] Start: 12-24-2022 Insertion of catheter into peripheral vein [facility] Start: 12-24-2022 Measuring intake and output [facility] Start: 12-24-2022 Notification of physician [facility] Start: 12-24-2022 Oxygen therapy [facility] Start: 12-24-2022 Patient education [facility] Start: 12-24-2022 Patient referral to [facility] Start: 12-24-2022 Providing care according to standard [facility] Start: 12-24-2022 Vital signs measurements [facility] Start: 12-24-2022 [facility] Start: 12-24-2022 Verification routine [facility] Start: 12-24-2022 Admission procedure [facility] Start: 12-24-2022 Consultation [facility] Start: 12-24-2022 [facility] Start: 11-25-2022 Blood chemistry [facility] Start: 11-24-2022 Blood chemistry [facility] Start: 11-23-2022 Patient discharge [facility] Start: 11-22-2022 [facility] Start: 11-22-2022 End: 11-22-2022 [facility] Start: 11-22-2022 Care regimes management [facility] Start: 11-22-2022 Notification of physician [facility] Start: 11-21-2022 Catheterization of vein [facility] Start: 11-21-2022 Medication education [facility] Start: 11-21-2022 Assessment of risk of venous thromboembolism [facility] Start: 11-21-2022 Continuous pulse oximetry [facility] Start: 11-21-2022 End: 11-21-2022 Following clinical pathway protocol [facility] Start: 11-21-2022 Incentive spirometry [facility] Start: 11-21-2022 Inhalation therapy procedure [facility] Start: 11-21-2022 Insertion of catheter into peripheral vein [facility] Start: 11-21-2022 Introduction of urinary catheter [facility] Start: 11-21-2022 Lab findings surveillance [facility] Start: 11-21-2022 Measuring intake and output [facility] Start: 11-21-2022 Notification of physician [facility] Start: 11-21-2022 Oxygen therapy [facility] Start: 11-21-2022 Patient education [facility] Start: 11-21-2022 Patient referral to [facility] Start: 11-21-2022 Providing care according to standard [facility] Start: 11-21-2022 Provision of activity privileges [facility] Start: 11-21-2022 Referral to service [facility] Start: 11-21-2022 Vital signs measurements [facility] Start: 11-21-2022 [facility] Start: 11-21-2022 Urine test [facility] Start: 11-21-2022 [facility] Start: 11-21-2022 Verification routine [facility] Start: 11-21-2022 Admission procedure [facility] Start: 07-21-2022 DEPRESSION ASSESSMENT DEPRESSION ASSESSMENT [facility] Start: 06-07-2022 ANNUAL PCP TEAM CHRONIC DISEASE VISIT ANNUAL PCP TEAM CHRONIC DISEASE VISIT [facility] Start: 06-07-2022 COVID-19 VACCINE (#1) COVID-19 VACCINE (#1) [facility] Comment on above: Postponed from 2003 (Declined at t his time) Start: 03-21-2022 Influenza vaccination INFLUENZA (Season Ended) [facility] Start: 11-01-2020 Hemoglobin A1c/Hemoglobin.total in Blood HBA1C [facility] Start: 03-04-2020 Adult depression screening assessment DEPRESSION SCREENING [facility] Start: 2019 PAP TESTING PAP TESTING [facility] Start: 2019 Screening for malignant neoplasm of cervix [facility] Start: 01-09-2019 CHLAMYDIA SCREENING (18-24) CHLAMYDIA SCREENING (18-24) [facility] Start: 01-09-2019 GC (GONORRHEA) SCREENING (18-24) GC (GONORRHEA) SCREENING (18-24) [facility] Start: 01-09-2019 PNEUMOCOCCAL (2 - PCV) PNEUMOCOCCAL (2 - PCV) [facility] Start: 01-09-2019 Pneumococcal vaccination [facility] Start: 07-03-2017 End: 07-03-2017 Appointment Appointment [facility] Work Phone: Start: 04-11-2017 End: 04-11-2017 Appointment Appointment [facility] Start: 04-02-2017 End: 04-03-2017 *CMP Complete Metabolic Panel *CMP Complete Metabolic Panel [facility] Work Phone: Start: 04-02-2017 End: 04-02-2017 *Microalbumin, Creatine Ratio, rand urine *Microalbumin, Creatine Ratio, rand urine [facility] Work Phone: Start: 04-02-2017 End: 04-03-2017 Hemoglobin A1c/Hemoglobin.total mass fraction (Bld) *HgA1C [facility] Work Phone: Start: 04-02-2017 End: 04-02-2017 Appointment Appointment [facility] Start: 04-02-2017 End: 04-03-2017 *CMP Complete Metabolic Panel *CMP Complete Metabolic Panel [facility] Work Phone: Start: 04-02-2017 End: 04-02-2017 *Microalbumin, Creatine Ratio, rand urine *Microalbumin, Creatine Ratio, rand urine [facility] Work Phone: Start: 04-02-2017 End: 04-03-2017 HbA1c *HgA1C [facility] Work Phone: Start: 03-28-2017 End: 03-28-2017 Appointment Appointment [facility] Start: 03-28-2017 End: 03-28-2017 Bacteria genital culture *CUV - Culture, VAG/CX [facility] Work Phone: Start: 03-28-2017 End: 03-28-2017 Bacteria genital culture *CUV - Culture, VAG/CX [facility] Start: 02-26-2017 End: 02-26-2017 Appointment Appointment [facility] Work Phone: Start: 02-20-2017 End: 02-20-2017 Appointment Appointment [facility] Start: 02-14-2017 End: 02-14-2017 Appointment Appointment [facility] Work Phone: Start: 01-15-2017 End: 01-15-2017 Thyroid stimulating hormone (TSH) *TSH [facility] Work Phone: Start: 01-15-2017 End: 01-15-2017 Appointment Appointment [facility] Work Phone: Start: 01-15-2017 End: 01-15-2017 Thyroid stimulating hormone (TSH) *TSH [facility] Work Phone: Start: 01-02-2017 End: 01-09-2017 *CMP Complete Metabolic Panel *CMP Complete Metabolic Panel [facility] Work Phone: Start: 01-02-2017 End: 01-09-2017 *Microalbumin, Creatine Ratio, rand urine *Microalbumin, Creatine Ratio, rand urine [facility] Work Phone: Start: 01-02-2017 End: 01-09-2017 Hemoglobin A1c/Hemoglobin.total mass fraction (Bld) *HgA1C [facility] Work Phone: Start: 01-02-2017 End: 01-02-2017 Appointment Appointment [facility] Work Phone: Start: 01-02-2017 End: 01-09-2017 *CMP Complete Metabolic Panel *CMP Complete Metabolic Panel [facility] Work Phone: Start: 01-02-2017 End: 01-09-2017 *Microalbumin, Creatine Ratio, rand urine *Microalbumin, Creatine Ratio, rand urine [facility] Work Phone: Start: 01-02-2017 End: 01-09-2017 HbA1c *HgA1C [facility] Work Phone: Start: 2016 Hepatitis B surface antibody level LDL CHOLESTEROL [facility] Start: 2016 HIV SCREENING HIV SCREENING [facility] Start: 2016 HIV screening HIV Screening [facility] Start: 2016 SPIROMETRY SPIROMETRY [facility] Start: 2014 MENINGOCOCCAL B: Consider based on risk (1 of 2 - Patient Seeks Protection) MENINGOCOCCAL B: Consider based on risk (1 of 2 - Patient Seeks Protection) [facility] Start: 2012 PEDS TO ADULT TRANSITION ANNUAL ASSESSMENT PEDS TO ADULT TRANSITION ANNUAL ASSESSMENT [facility] Start: 2010 PEDS TO ADULT TRANSITION INITIAL DISCUSSION PEDS TO ADULT TRANSITION INITIAL DISCUSSION [facility] Start: 2008 3 comp foot exam completed DIABETIC FOOT EXAM [facility] Start: 2008 Diabetic foot examination Diabetic Foot Exam [facility] Start: 2008 Glaucoma screening Dilated Retinal Exam [facility] Start: 2008 Hepatitis B screening URINE ALBUMIN:CREATININE RATIO [facility] Start: 2008 Hepatitis C antibody, confirmatory test DILATED RETINAL EXAM [facility] Start: 2008 MENINGOCOCCAL B: Consider based on risk (1 of 2 - Risk Bexsero 2-dose series) MENINGOCOCCAL B: Consider based on risk (1 of 2 - Risk Bexsero 2-dose series) [facility] Start: 1998 COVID-19 VACCINE (#1) COVID-19 VACCINE (#1) [facility] Amphetamine [Mass/vo lume] in Urine [facility] Anion gap measurement [facility] Anion gap measurement [facility] Anion gap measurement [facility] Anion gap measurement [facility] Anion gap measurement [facility] Anion gap measurement [facility] Anion gap measurement [facility] Anion gap measurement [facility] Anion gap measurement [facility] Anion gap measurement [facility] Anion gap measurement [facility] Anion gap measurement [facility] Anion gap measurement [facility] Anion gap measurement [facility] Bacteria identified in Urine by Culture Urine Culture [facility] BACTERIAL VAGINOSIS NAAT BACTERI AL VAGINOSIS NAAT Lab Routine Screen for STD (sexually transmitted disease) 03/01/2024 12:19 PM EDT [facility] Benzodiazepine measurement, urine [facility] Bilirubin measuremen t, urine [facility] BUN/Creatinine ratio [facility] BUN/Creatinine ratio [facility] BUN/Creatinine ratio [facility] BUN/Creatinine ratio [facility] BUN/Creatinine ratio [facility] BUN/Creatinine ratio [facility] BUN/Creatinine ratio [facility] BUN/Creatinine ratio [facility] BUN/Creatinine ratio [facility] BUN/Creatinine ratio [facility] BUN/Creatinine ratio [facility] BUN/Creatinine ratio [facility] BUN/Creatinine ratio [facility] BUN/Creatinine ratio [facility] Calcium [Mass/volume ] in Serum or Plasma [facility] Calcium [Mass/volume ] in Serum or Plasma [facility] Calcium [Mass/volume ] in Serum or Plasma [facility] Calcium [Mass/volume ] in Serum or Plasma [facility] Calcium [Mass/volume ] in Serum or Plasma [facility] Calcium [Mass/volume ] in Serum or Plasma [facility] Calcium [Mass/volume ] in Serum or Plasma [facility] Calcium [Mass/volume ] in Serum or Plasma [facility] Calcium [Mass/volume ] in Serum or Plasma [facility] Calcium [Mass/volume ] in Serum or Plasma [facility] Calcium [Mass/volume ] in Serum or Plasma [facility] Calcium [Mass/volume ] in Serum or Plasma [facility] Calcium [Mass/volume ] in Serum or Plasma [facility] Calcium [Mass/volume ] in Serum or Plasma [facility] MICHELLE/TRICHOMONAS NAAT MICHELLE /TRICHOMONAS NAAT Lab Routine Screen for STD (sexually transmitted disease) 03/01/2024 12:19 PM EDT [facility] Carbon dioxide, tota l [Moles/volume] in Serum or Plasma [facility] Carbon dioxide, tota l [Moles/volume] in Serum or Plasma [facility] Carbon dioxide, tota l [Moles/volume] in Serum or Plasma [facility] Carbon dioxide, tota l [Moles/volume] in Serum or Plasma [facility] Carbon dioxide, tota l [Moles/volume] in Serum or Plasma [facility] Carbon dioxide, tota l [Moles/volume] in Serum or Plasma [facility] Carbon dioxide, tota l [Moles/volume] in Serum or Plasma [facility] Carbon dioxide, tota l [Moles/volume] in Serum or Plasma [facility] Carbon dioxide, tota l [Moles/volume] in Serum or Plasma [facility] Carbon dioxide, tota l [Moles/volume] in Serum or Plasma [facility] Carbon dioxide, tota l [Moles/volume] in Serum or Plasma [facility] Carbon dioxide, tota l [Moles/volume] in Serum or Plasma [facility] Carbon dioxide, tota l [Moles/volume] in Serum or Plasma [facility] Carbon dioxide, tota l [Moles/volume] in Serum or Plasma [facility] Chlamydia trachomatis+Neisseria gonorrhoeae DNA [Presence] in Unspecified specimen by JEANNETTE with probe detection GONORRHEA/CHLAMYDIA NAAT Lab Routine Screen for STD (sexually transmitted disease) 03/01/2024 12:19 PM EDT [facility] Chloride [Moles/volu me] in Serum or Plasma [facility] Chloride [Moles/volu me] in Serum or Plasma [facility] Chloride [Moles/volu me] in Serum or Plasma [facility] Chloride [Moles/volu me] in Serum or Plasma [facility] Chloride [Moles/volu me] in Serum or Plasma [facility] Chloride [Moles/volu me] in Serum or Plasma [facility] Chloride [Moles/volu me] in Serum or Plasma [facility] Chloride [Moles/volu me] in Serum or Plasma [facility] Chloride [Moles/volu me] in Serum or Plasma [facility] Chloride [Moles/volu me] in Serum or Plasma [facility] Chloride [Moles/volu me] in Serum or Plasma [facility] Chloride [Moles/volu me] in Serum or Plasma [facility] Chloride [Moles/volu me] in Serum or Plasma [facility] Chloride [Moles/volu me] in Serum or Plasma [facility] Cocaine measurement, urine [facility] COVID & INFLUENZA A/ B & RSV NAAT, ROUTINE COVID & INFLUENZA A/B & RSV NAAT, ROUTINE Microbiology Routine Exposure to SARS-associated coronavirus 04/07/2023 1:12 PM EDT [facility] Work Phone: Creatinine [Moles/vo lume] in Serum or Plasma [facility] Creatinine [Moles/vo lume] in Serum or Plasma [facility] Creatinine [Moles/vo lume] in Serum or Plasma [facility] Creatinine [Moles/vo lume] in Serum or Plasma [facility] Creatinine [Moles/vo lume] in Serum or Plasma [facility] Creatinine [Moles/vo lume] in Serum or Plasma [facility] Creatinine [Moles/vo lume] in Serum or Plasma [facility] Creatinine [Moles/vo lume] in Serum or Plasma [facility] Creatinine [Moles/vo lume] in Serum or Plasma [facility] Creatinine [Moles/vo lume] in Serum or Plasma [facility] Creatinine [Moles/vo lume] in Serum or Plasma [facility] Creatinine [Moles/vo lume] in Serum or Plasma [facility] Creatinine [Moles/vo lume] in Serum or Plasma [facility] Creatinine [Moles/vo lume] in Serum or Plasma [facility] Glucose [Mass/volume ] in Serum or Plasma [facility] Glucose [Mass/volume ] in Serum or Plasma [facility] Glucose [Mass/volume ] in Serum or Plasma [facility] Glucose [Mass/volume ] in Serum or Plasma [facility] Glucose [Mass/volume ] in Serum or Plasma [facility] Glucose [Mass/volume ] in Serum or Plasma [facility] Glucose [Mass/volume ] in Serum or Plasma [facility] Glucose [Mass/volume ] in Serum or Plasma [facility] Glucose [Mass/volume ] in Serum or Plasma [facility] Glucose [Mass/volume ] in Serum or Plasma [facility] Glucose [Mass/volume ] in Serum or Plasma [facility] Glucose [Mass/volume ] in Serum or Plasma [facility] Glucose [Mass/volume ] in Serum or Plasma [facility] Glucose [Mass/volume ] in Serum or Plasma [facility] Hemoglobin [Presence ] in Urine [facility] Hemoglobin A1c/Hemoglobin.total in Blood [facility] Hemoglobin A1c/Hemoglobin.total in Blood [facility] Measurement of 3,4-methylenedioxymethamp hetamine in urine [facility] Measurement of keton es in urine using dipstick [facility] Measurement of renal function [facility] Measurement of renal function [facility] Measurement of renal function [facility] Measurement of renal function [facility] Measurement of renal function [facility] Measurement of renal function [facility] Measurement of renal function [facility] Measurement of renal function [facility] Measurement of renal function [facility] Measurement of renal function [facility] Measurement of renal function [facility] Measurement of renal function [facility] Measurement of renal function [facility] Measurement of renal function [facility] Methadone measuremen t, urine [facility] Microscopic urinalysis [facility] NEXPLANON INSERTION NEXPLANON IN SERTION Procedures Routine Insertion of Nexplanon Ordered: 03/01/2024 [facility] Comment on above: Ordered: 03/01/2024 NEXPLANON REMOVAL NEXPLANON FLOYD COREY Procedures Routine Encounter for removal and reinsertion of Nexplanon Ordered: 03/01/2024 [facility] Comment on above: Ordered: 03/01/2024 NEXPLANON REMOVAL NEXPLANON FLOYD COREY Procedures Routine Nexplanon removal Ordered: 08/19/2024 [facility] Work Phone: Comment on above: Ordered: 08/19/2024 Ova and parasites identified in Unspecified specimen by Light microscopy [facility] PAP TEST PAP TEST Lab [facility] adult exam Encounter for gynecological examination (general) (routine) without abnormal findings Screening for cervical cancer Encounter for screening for human papillomavirus (HPV) 03/01/2024 12:19 PM EDT [facility] Patient Education [facility] Work Phone: Patient referral [facility] Work Phone: pH of Urine [facility] pH of Urine [facility] Phencyclidine [Prese nce] in Urine [facility] Potassium [Moles/vol ume] in Serum or Plasma [facility] Potassium [Moles/vol ume] in Serum or Plasma [facility] Potassium [Moles/vol ume] in Serum or Plasma [facility] Potassium [Moles/vol ume] in Serum or Plasma [facility] Potassium [Moles/vol ume] in Serum or Plasma [facility] Potassium [Moles/vol ume] in Serum or Plasma [facility] Potassium [Moles/vol ume] in Serum or Plasma [facility] Potassium [Moles/vol ume] in Serum or Plasma [facility] Potassium [Moles/vol ume] in Serum or Plasma [facility] Potassium [Moles/vol ume] in Serum or Plasma [facility] Potassium [Moles/vol ume] in Serum or Plasma [facility] Potassium [Moles/vol ume] in Serum or Plasma [facility] Potassium [Moles/vol ume] in Serum or Plasma [facility] Potassium [Moles/vol ume] in Serum or Plasma [facility] RAPID STREP TEST B/O RAPID STREP TEST B/O Lab Routine Sore throat Ordered: 04/07/2023 [facility] Work Phone: Comment on above: Ordered: 04/07/2023 ROUTINE FLU A/B + RSV ROUTINE FL U A/B + RSV Lab Routine Exposure to SARS-associated coronavirus 04/07/2023 1:12 PM EDT [facility] Work Phone: SARS-CoV-2 (COVID-19 ) RNA [Presence] in Respiratory specimen by JEANNETTE with probe detection COVID NAAT, UPPER RESPIRATORY, ROUTINE Microbiology Routine Exposure to SARS-associated coronavirus 04/07/2023 1:12 PM EDT [facility] Work Phone: Sodium [Moles/volume ] in Serum or Plasma [facility] Sodium [Moles/volume ] in Serum or Plasma [facility] Sodium [Moles/volume ] in Serum or Plasma [facility] Sodium [Moles/volume ] in Serum or Plasma [facility] Sodium [Moles/volume ] in Serum or Plasma [facility] Sodium [Moles/volume ] in Serum or Plasma [facility] Sodium [Moles/volume ] in Serum or Plasma [facility] Sodium [Moles/volume ] in Serum or Plasma [facility] Sodium [Moles/volume ] in Serum or Plasma [facility] Sodium [Moles/volume ] in Serum or Plasma [facility] Sodium [Moles/volume ] in Serum or Plasma [facility] Sodium [Moles/volume ] in Serum or Plasma [facility] Sodium [Moles/volume ] in Serum or Plasma [facility] Sodium [Moles/volume ] in Serum or Plasma [facility] Specific gravity of Urine [facility] Urea nitrogen [Mass/volume] in Serum or Plasma [facility] Urea nitrogen [Mass/volume] in Serum or Plasma [facility] Urea nitrogen [Mass/volume] in Serum or Plasma [facility] Urea nitrogen [Mass/volume] in Serum or Plasma [facility] Urea nitrogen [Mass/volume] in Serum or Plasma [facility] Urea nitrogen [Mass/volume] in Serum or Plasma [facility] Urea nitrogen [Mass/volume] in Serum or Plasma [facility] Urea nitrogen [Mass/volume] in Serum or Plasma [facility] Urea nitrogen [Mass/volume] in Serum or Plasma [facility] Urea nitrogen [Mass/volume] in Serum or Plasma [facility] Urea nitrogen [Mass/volume] in Serum or Plasma [facility] Urea nitrogen [Mass/volume] in Serum or Plasma [facility] Urea nitrogen [Mass/volume] in Serum or Plasma [facility] Urea nitrogen [Mass/volume] in Serum or Plasma [facility] Urinalysis, blood, qualitative [facility] Urine barbiturate measurement [facility] Urine cannabinoid measurement [facility] Urine dipstick for glucose [facility] Urine dipstick for leukocyte esterase [facility] Urine dipstick for nitrite [facility] Urine dipstick for protein [facility] Urine examination [facility] Urine microscopy: epithelial cells [facility] Urine Microscopy: wh ite cells [facility] Urine opiate measurement [facility] Urobilinogen [Presen ce] in Urine [facility] Immunizations Immunization Date Immunization Notes Care Provider Fa cili 01-27-2024 pneumococcal conjuga te (PCV20) vaccine, 20 valent (PREVNAR 20) Chasity Hodge PA-C Work Phone: [facility] 01-27-2024 pneumococcal Conjuga te, unspecified formulation Chasity Hodge PA-C Work Phone: [facility] Work Phone: 12-08-2019 hepatitis A and hepatitis B vaccine Aris Chow [employer] Work Phone: [facility] Work Phone: 11-18-2019 hepatitis B vaccine, adult dosage Dr. Erika Sen Work Phone: [facility] 04-05-2019 hepatitis A and hepatitis B vaccine Aris Chow ST[employer] Work Phone: [facility] Work Phone: 03-01-2019 hepatitis A and hepatitis B vaccine Aris Chow STOCK [employer] Work Phone: [facility] 03-01-2019 measles, mumps, rube lla, and varicella virus vaccine Aris Chow ST[employer] Work Phone: [facility] 01-09-2018 pneumococcal polysaccharide vaccine, 23 valent Aris Chow ST[employer] Work Phone: [facility] Work Phone: 01-18-2015 meningococcal polysaccharide (groups A, C, Y and W-135) diphtheria toxoid conjugate vaccine (MCV4P) Aris Geraldo ST[employer] Work Phone: [facility] 01-18-2015 tetanus toxoid, redu ramya diphtheria toxoid, and acellular pertussis vaccine, adsorbed Aris Chow STOCK [employer] Work Phone: [facility] 06-09-2014 human papilloma viru s vaccine, quadrivalent [facility] STOCK CONTRO[employer]ER.[employer] Work Phone: [facility] 06-09-2014 meningococcal polysaccharide (groups A, C, Y and W-135) diphtheria toxoid conjugate vaccine (MCV4P) [facility] STOCK CONTR[employer]ER.[employer] Work Phone: [facility] 06-11-2013 human papilloma viru s vaccine, quadrivalent [facility] [employer] Work Phone: [facility] 04-15-2013 human papilloma viru s vaccine, quadrivalent Aris Geraldo STOCK [employer]ER.[employer] Work Phone: [facility] Payers Date Payer Category Payer Unknown [id number] 2024 Unknown [id number] 2024 Self-pay [id number] 2023 Unknown LIVAN LICONA HI X [id number] 2023-Present [phone] [address] [address] [place] [address] HMO [id number] 2023 Unknown [id number] 2023 Private Health Insurance [id number] 2023 Private Health Insurance [id number] 2013 Medicaid [facility] [id number] 2013-Present [phone] [address] [place] [address] Medicaid [id number] 2013 Medicaid [id number] 2013 Unknown [id number] 2013 Unknown [id number] 1998 Unknown [id number] Unknown [id number] Unknown [id number] 462 Unknown [id number] 462 Unknown [id number] 462 Unknown [id number] 462 Unknown [id number] 462 Unknown [id number] 462 Unknown [id number] 462 Unknown [id number] 462 Unknown [id number] 462 Unknown [id number] 462 Unknown [id number] 462 Social History Date Type Detail Facility Start: 11-07-2021 End: 11-26-2023 Tobacco smoking status NHIS Unknown if ever smoked [facility] Start: 11-10-2019 Occasional [facility] Start: 01-13-2020 Marijuana [facility] Start: 05-27-2020 Spouse/ Signif icant Other [facility] Start: 11-10-2019 - [facility] Start: 2000 Sex Assigned At Female [facility] Start: 12-31-2011 End: 11-26-2024 Tobacco smoking status NHIS Never smoked tobacco [facility] Start: 12-31-2011 End: 05-02-2022 Tobacco use and exposure Smokeless tobacco non-user [facility] Start: 05-05-2020 End: 12-26-2021 Alcohol intake Current non-drinker of alcohol (finding) [facility] Start: 06-07-2021 History SDOH Alcohol Comment Stopped [facility] Start: 11-18-2013 End: 05-02-2022 Tobacco Comment parents inside/outside [facility] Start: 2000 Sex Assigned At Not on file [facility] Start: 04-05-2020 End: 12-31-2021 Exposure to SARS-CoV-2 (event) Not sure [facility] History of tobacco use Passive smoker [facility] Start: 01-16-2023 End: 04-14-2024 History of Social function [facility] Start: 01-16-2023 End: 04-14-2024 Tobacco use panel [facility] Adult Depression Screening Assessment 0 [facility] How hard is it for you to pay for the very basics like food, housing, medical care, and heating Hard [facility] (I/We) worried whether (my/our) food would run out before (I/we) got money to buy more. Sometimes true [facility] Start: 03-01-2024 End: 08-18-2024 Alcohol intake Current drinker of alcohol (finding) [facility] Start: 03-01-2024 Alcohol Comment occasional [facility] Start: 10-04-2024 Sex Female (finding) [facility] Start: 11-27-2024 End: 11-27-2024 Tobacco smoking status NHIS Current some day smoker [facility] NEGATED: Highlighted row [facility] NEGATED: Highlighted row Not [facility] Medical Equipment Procedure Code Equipment Code Equipment Origin al Text Equipment Identifier Dates INSULIN SYRINGE-NEEDLE U-100 [id number] Start: 08-23-2015 End: 07-02-2025 Comment on above: Use as instructed 10 times daily Use with insulin inj ections Supply to be used as directed for insulin administration up to 3 times daily. Acetone (Urine) Test (Ketone Urine Test) strip Start: 11-05-2021 Pen Needle, Diabetic (Bd Ultra-Fine Opal Pen Needle) 32 gauge x 5/32 needle Start: 05-19-2020 Acetone (Urine) Test (Ketone Urine Test) strip Start: 05-08-2021 End: 09-05-2021 Acetone (Urine) Test (Ketone Urine Test) strip Start: 09-05-2021 End: 11-05-2021 Blood Sugar Diagnostic (Freestyle Lite Strips) strip Start: 09-10-2017 End: 09-10-2017 Blood Sugar Diagnostic (Freestyle Lite Strips) strip Start: 09-07-2018 End: 09-07-2018 Blood Sugar Diagnostic (Freestyle Lite Strips) strip Start: 09-07-2018 End: 02-15-2019 Insulin Syringe-Needle U-100 (Bd Insulin Syringe Ultra-Fine) 1 mL 31 gauge x 5/16 syringe Start: 04-15-2018 End: 04-15-2018 Insulin Syringe-Needle U-100 (Bd Insulin Syringe Ultra-Fine) 1 mL 31 gauge x 5/16 syringe Start: 04-15-2018 End: 06-29-2018 insulin syringe-needle U-100 1 mL 31 gauge x 5/16 Start: 07-06-2018 End: 07-06-2018 Pen Needle, Diabetic (Bd Ultra-Fine Opal Pen Needle) 32 gauge x 5/32 needle Start: 02-01-2020 End: 05-19-2020 Pen Needle, Diabetic (Bd Ultra-Fine Opal Pen Needle) 32 gauge x 5/32 needle Start: 09-07-2018 End: 09-07-2018 Pen Needle, Diabetic (Comfort Ez Pen Rincon) 32 gauge x 1/4 needle Start: 10-27-2017 End: 11-24-2017 Pen Needle, Diabetic (Comfort Ez Pen Rincon) 32 gauge x 1/4 needle Start: 11-24-2017 End: 11-24-2017 Acetone (Urine) Test (Ketone Urine Test) strip Start: 11-05-2021 Pen Needle, Diabetic (Bd Ultra-Fine Opal Pen Needle) 32 gauge x 5/32 needle Start: 05-19-2020 Acetone (Urine) Test (Ketone Urine Test) strip Start: 05-08-2021 End: 09-05-2021 Acetone (Urine) Test (Ketone Urine Test) strip Start: 09-05-2021 End: 11-05-2021 Blood Sugar Diagnostic (Freestyle Lite Strips) strip Start: 09-10-2017 End: 09-10-2017 Blood Sugar Diagnostic (Freestyle Lite Strips) strip Start: 09-07-2018 End: 09-07-2018 Blood Sugar Diagnostic (Freestyle Lite Strips) strip Start: 09-07-2018 End: 02-15-2019 Insulin Syringe-Needle U-100 (Bd Insulin Syringe Ultra-Fine) 1 mL 31 gauge x 5/16 syringe Start: 04-15-2018 End: 04-15-2018 Insulin Syringe-Needle U-100 (Bd Insulin Syringe Ultra-Fine) 1 mL 31 gauge x 5/16 syringe Start: 04-15-2018 End: 06-29-2018 insulin syringe-needle U-100 1 mL 31 gauge x 5/16 Start: 07-06-2018 End: 07-06-2018 Pen Needle, Diabetic (Bd Ultra-Fine Opal Pen Needle) 32 gauge x 5/32 needle Start: 02-01-2020 End: 05-19-2020 Pen Needle, Diabetic (Bd Ultra-Fine Opal Pen Needle) 32 gauge x 5/32 needle Start: 09-07-2018 End: 09-07-2018 Pen Needle, Diabetic (Comfort Ez Pen Rincon) 32 gauge x 1/4 needle Start: 10-27-2017 End: 11-24-2017 Pen Needle, Diabetic (Comfort Ez Pen Rincon) 32 gauge x 1/4 needle Start: 11-24-2017 End: 11-24-2017 Acetone (Urine) Test (Ketone Urine Test) strip Start: 11-05-2021 Pen Needle, Diabetic (Bd Ultra-Fine Opal Pen Needle) 32 gauge x 5/32 needle Start: 05-19-2020 Acetone (Urine) Test (Ketone Urine Test) strip Start: 05-08-2021 End: 09-05-2021 Acetone (Urine) Test (Ketone Urine Test) strip Start: 09-05-2021 End: 11-05-2021 Blood Sugar Diagnostic (Freestyle Lite Strips) strip Start: 09-10-2017 End: 09-10-2017 Blood Sugar Diagnostic (Freestyle Lite Strips) strip Start: 09-07-2018 End: 09-07-2018 Blood Sugar Diagnostic (Freestyle Lite Strips) strip Start: 09-07-2018 End: 02-15-2019 Insulin Syringe-Needle U-100 (Bd Insulin Syringe Ultra-Fine) 1 mL 31 gauge x 5/16 syringe Start: 04-15-2018 End: 04-15-2018 Insulin Syringe-Needle U-100 (Bd Insulin Syringe Ultra-Fine) 1 mL 31 gauge x 5/16 syringe Start: 04-15-2018 End: 06-29-2018 insulin syringe-needle U-100 1 mL 31 gauge x 5/16 Start: 07-06-2018 End: 07-06-2018 Pen Needle, Diabetic (Bd Ultra-Fine Opal Pen Needle) 32 gauge x 5/32 needle Start: 02-01-2020 End: 05-19-2020 Pen Needle, Diabetic (Bd Ultra-Fine Opal Pen Needle) 32 gauge x 5/32 needle Start: 09-07-2018 End: 09-07-2018 Pen Needle, Diabetic (Comfort Ez Pen Rincon) 32 gauge x 1/4 needle Start: 10-27-2017 End: 11-24-2017 Pen Needle, Diabetic (Comfort Ez Pen Rincon) 32 gauge x 1/4 needle Start: 11-24-2017 End: 11-24-2017 Acetone (Urine) Test (Ketone Urine Test) strip Start: 11-05-2021 Pen Needle, Diabetic (Bd Ultra-Fine Opal Pen Needle) 32 gauge x 5/32 needle Start: 11-23-2022 Acetone (Urine) Test (Ketone Urine Test) strip Start: 05-08-2021 End: 09-05-2021 Acetone (Urine) Test (Ketone Urine Test) strip Start: 09-05-2021 End: 11-05-2021 Blood Sugar Diagnostic (Freestyle Lite Strips) strip Start: 09-10-2017 End: 09-10-2017 Blood Sugar Diagnostic (Freestyle Lite Strips) strip Start: 09-07-2018 End: 09-07-2018 Blood Sugar Diagnostic (Freestyle Lite Strips) strip Start: 09-07-2018 End: 02-15-2019 Insulin Syringe-Needle U-100 (Bd Insulin Syringe Ultra-Fine) 1 mL 31 gauge x 5/16 syringe Start: 04-15-2018 End: 04-15-2018 Insulin Syringe-Needle U-100 (Bd Insulin Syringe Ultra-Fine) 1 mL 31 gauge x 5/16 syringe Start: 04-15-2018 End: 06-29-2018 insulin syringe-needle U-100 1 mL 31 gauge x 5/16 Start: 07-06-2018 End: 07-06-2018 Pen Needle, Diabetic (Bd Ultra-Fine Opal Pen Needle) 32 gauge x 5/32 needle Start: 02-01-2020 End: 05-19-2020 Pen Needle, Diabetic (Bd Ultra-Fine Opal Pen Needle) 32 gauge x 5/32 needle Start: 05-19-2020 End: 11-23-2022 Pen Needle, Diabetic (Bd Ultra-Fine Opal Pen Needle) 32 gauge x 5/32 needle Start: 09-07-2018 End: 09-07-2018 Pen Needle, Diabetic (Comfort Ez Pen Rincon) 32 gauge x 1/4 needle Start: 10-27-2017 End: 11-24-2017 Pen Needle, Diabetic (Comfort Ez Pen Rincon) 32 gauge x 1/4 needle Start: 11-24-2017 End: 11-24-2017 Acetone (Urine) Test (Ketone Urine Test) strip Start: 11-05-2021 Pen Needle, Diabetic (Bd Ultra-Fine Opal Pen Needle) 32 gauge x 5/32 needle Start: 11-23-2022 Acetone (Urine) Test (Ketone Urine Test) strip Start: 05-08-2021 End: 09-05-2021 Acetone (Urine) Test (Ketone Urine Test) strip Start: 09-05-2021 End: 11-05-2021 Blood Sugar Diagnostic (Freestyle Lite Strips) strip Start: 09-10-2017 End: 09-10-2017 Blood Sugar Diagnostic (Freestyle Lite Strips) strip Start: 09-07-2018 End: 09-07-2018 Blood Sugar Diagnostic (Freestyle Lite Strips) strip Start: 09-07-2018 End: 02-15-2019 Insulin Syringe-Needle U-100 (Bd Insulin Syringe Ultra-Fine) 1 mL 31 gauge x 5/16 syringe Start: 04-15-2018 End: 04-15-2018 Insulin Syringe-Needle U-100 (Bd Insulin Syringe Ultra-Fine) 1 mL 31 gauge x 5/16 syringe Start: 04-15-2018 End: 06-29-2018 insulin syringe-needle U-100 1 mL 31 gauge x 5/16 Start: 07-06-2018 End: 07-06-2018 Pen Needle, Diabetic (Bd Ultra-Fine Opal Pen Needle) 32 gauge x 5/32 needle Start: 02-01-2020 End: 05-19-2020 Pen Needle, Diabetic (Bd Ultra-Fine Opal Pen Needle) 32 gauge x 5/32 needle Start: 05-19-2020 End: 11-23-2022 Pen Needle, Diabetic (Bd Ultra-Fine Opal Pen Needle) 32 gauge x 5/32 needle Start: 09-07-2018 End: 09-07-2018 Pen Needle, Diabetic (Comfort Ez Pen Rincon) 32 gauge x 1/4 needle Start: 10-27-2017 End: 11-24-2017 Pen Needle, Diabetic (Comfort Ez Pen Rincon) 32 gauge x 1/4 needle Start: 11-24-2017 End: 11-24-2017 Acetone (Urine) Test (Ketone Urine Test) strip Start: 11-05-2021 Pen Needle, Diabetic (Bd Ultra-Fine Opal Pen Needle) 32 gauge x 5/32 needle Start: 11-23-2022 Acetone (Urine) Test (Ketone Urine Test) strip Start: 05-08-2021 End: 09-05-2021 Acetone (Urine) Test (Ketone Urine Test) strip Start: 09-05-2021 End: 11-05-2021 Blood Sugar Diagnostic (Freestyle Lite Strips) strip Start: 09-10-2017 End: 09-10-2017 Blood Sugar Diagnostic (Freestyle Lite Strips) strip Start: 09-07-2018 End: 09-07-2018 Blood Sugar Diagnostic (Freestyle Lite Strips) strip Start: 09-07-2018 End: 02-15-2019 Insulin Syringe-Needle U-100 (Bd Insulin Syringe Ultra-Fine) 1 mL 31 gauge x 5/16 syringe Start: 04-15-2018 End: 04-15-2018 Insulin Syringe-Needle U-100 (Bd Insulin Syringe Ultra-Fine) 1 mL 31 gauge x 5/16 syringe Start: 04-15-2018 End: 06-29-2018 insulin syringe-needle U-100 1 mL 31 gauge x 5/16 Start: 07-06-2018 End: 07-06-2018 Pen Needle, Diabetic (Bd Ultra-Fine Opal Pen Needle) 32 gauge x 5/32 needle Start: 02-01-2020 End: 05-19-2020 Pen Needle, Diabetic (Bd Ultra-Fine Opal Pen Needle) 32 gauge x 5/32 needle Start: 05-19-2020 End: 11-23-2022 Pen Needle, Diabetic (Bd Ultra-Fine Opal Pen Needle) 32 gauge x 5/32 needle Start: 09-07-2018 End: 09-07-2018 Pen Needle, Diabetic (Comfort Ez Pen Rincon) 32 gauge x 1/4 needle Start: 10-27-2017 End: 11-24-2017 Pen Needle, Diabetic (Comfort Ez Pen Rincon) 32 gauge x 1/4 needle Start: 11-24-2017 End: 11-24-2017 Acetone (Urine) Test (Ketone Urine Test) strip Start: 11-05-2021 Pen Needle, Diabetic (Bd Ultra-Fine Opal Pen Needle) 32 gauge x 5/32 needle Start: 11-23-2022 Acetone (Urine) Test (Ketone Urine Test) strip Start: 05-08-2021 End: 09-05-2021 Acetone (Urine) Test (Ketone Urine Test) strip Start: 09-05-2021 End: 11-05-2021 Blood Sugar Diagnostic (Freestyle Lite Strips) strip Start: 09-10-2017 End: 09-10-2017 Blood Sugar Diagnostic (Freestyle Lite Strips) strip Start: 09-07-2018 End: 09-07-2018 Blood Sugar Diagnostic (Freestyle Lite Strips) strip Start: 09-07-2018 End: 02-15-2019 Insulin Syringe-Needle U-100 (Bd Insulin Syringe Ultra-Fine) 1 mL 31 gauge x 5/16 syringe Start: 04-15-2018 End: 04-15-2018 Insulin Syringe-Needle U-100 (Bd Insulin Syringe Ultra-Fine) 1 mL 31 gauge x 5/16 syringe Start: 04-15-2018 End: 06-29-2018 insulin syringe-needle U-100 1 mL 31 gauge x 5/16 Start: 07-06-2018 End: 07-06-2018 Pen Needle, Diabetic (Bd Ultra-Fine Opal Pen Needle) 32 gauge x 5/32 needle Start: 02-01-2020 End: 05-19-2020 Pen Needle, Diabetic (Bd Ultra-Fine Opal Pen Needle) 32 gauge x 5/32 needle Start: 05-19-2020 End: 11-23-2022 Pen Needle, Diabetic (Bd Ultra-Fine Opal Pen Needle) 32 gauge x 5/32 needle Start: 09-07-2018 End: 09-07-2018 Pen Needle, Diabetic (Comfort Ez Pen Rincon) 32 gauge x 1/4 needle Start: 10-27-2017 End: 11-24-2017 Pen Needle, Diabetic (Comfort Ez Pen Rincon) 32 gauge x 1/4 needle Start: 11-24-2017 End: 11-24-2017 Acetone (Urine) Test (Ketone Urine Test) strip Start: 11-05-2021 Pen Needle, Diabetic (Bd Ultra-Fine Opal Pen Needle) 32 gauge x 5/32 needle Start: 11-23-2022 Acetone (Urine) Test (Ketone Urine Test) strip Start: 05-08-2021 End: 09-05-2021 Acetone (Urine) Test (Ketone Urine Test) strip Start: 09-05-2021 End: 11-05-2021 Blood Sugar Diagnostic (Freestyle Lite Strips) strip Start: 09-10-2017 End: 09-10-2017 Blood Sugar Diagnostic (Freestyle Lite Strips) strip Start: 09-07-2018 End: 09-07-2018 Blood Sugar Diagnostic (Freestyle Lite Strips) strip Start: 09-07-2018 End: 02-15-2019 Insulin Syringe-Needle U-100 (Bd Insulin Syringe Ultra-Fine) 1 mL 31 gauge x 5/16 syringe Start: 04-15-2018 End: 04-15-2018 Insulin Syringe-Needle U-100 (Bd Insulin Syringe Ultra-Fine) 1 mL 31 gauge x 5/16 syringe Start: 04-15-2018 End: 06-29-2018 insulin syringe-needle U-100 1 mL 31 gauge x 5/16 Start: 07-06-2018 End: 07-06-2018 Pen Needle, Diabetic (Bd Ultra-Fine Opal Pen Needle) 32 gauge x 5/32 needle Start: 02-01-2020 End: 05-19-2020 Pen Needle, Diabetic (Bd Ultra-Fine Opal Pen Needle) 32 gauge x 5/32 needle Start: 05-19-2020 End: 11-23-2022 Pen Needle, Diabetic (Bd Ultra-Fine Opal Pen Needle) 32 gauge x 5/32 needle Start: 09-07-2018 End: 09-07-2018 Pen Needle, Diabetic (Comfort Ez Pen Rincon) 32 gauge x 1/4 needle Start: 10-27-2017 End: 11-24-2017 Pen Needle, Diabetic (Comfort Ez Pen Rincon) 32 gauge x 1/4 needle Start: 11-24-2017 End: 11-24-2017 Acetone (Urine) Test (Ketone Urine Test) strip Start: 11-05-2021 Pen Needle, Diabetic (Bd Ultra-Fine Opal Pen Needle) 32 gauge x 5/32 needle Start: 11-23-2022 Acetone (Urine) Test (Ketone Urine Test) strip Start: 05-08-2021 End: 09-05-2021 Acetone (Urine) Test (Ketone Urine Test) strip Start: 09-05-2021 End: 11-05-2021 Blood Sugar Diagnostic (Freestyle Lite Strips) strip Start: 09-10-2017 End: 09-10-2017 Blood Sugar Diagnostic (Freestyle Lite Strips) strip Start: 09-07-2018 End: 09-07-2018 Blood Sugar Diagnostic (Freestyle Lite Strips) strip Start: 09-07-2018 End: 02-15-2019 Insulin Syringe-Needle U-100 (Bd Insulin Syringe Ultra-Fine) 1 mL 31 gauge x 5/16 syringe Start: 04-15-2018 End: 04-15-2018 Insulin Syringe-Needle U-100 (Bd Insulin Syringe Ultra-Fine) 1 mL 31 gauge x 5/16 syringe Start: 04-15-2018 End: 06-29-2018 insulin syringe-needle U-100 1 mL 31 gauge x 5/16 Start: 07-06-2018 End: 07-06-2018 Pen Needle, Diabetic (Bd Ultra-Fine Opal Pen Needle) 32 gauge x 5/32 needle Start: 02-01-2020 End: 05-19-2020 Pen Needle, Diabetic (Bd Ultra-Fine Opal Pen Needle) 32 gauge x 5/32 needle Start: 05-19-2020 End: 11-23-2022 Pen Needle, Diabetic (Bd Ultra-Fine Opal Pen Needle) 32 gauge x 5/32 needle Start: 09-07-2018 End: 09-07-2018 Pen Needle, Diabetic (Comfort Ez Pen Rincon) 32 gauge x 1/4 needle Start: 10-27-2017 End: 11-24-2017 Pen Needle, Diabetic (Comfort Ez Pen Rincon) 32 gauge x 1/4 needle Start: 11-24-2017 End: 11-24-2017 Acetone (Urine) Test (Ketone Urine Test) strip Start: 11-05-2021 Pen Needle, Diabetic (Bd Ultra-Fine Opal Pen Needle) 32 gauge x 5/32 needle Start: 11-23-2022 Acetone (Urine) Test (Ketone Urine Test) strip Start: 05-08-2021 End: 09-05-2021 Acetone (Urine) Test (Ketone Urine Test) strip Start: 09-05-2021 End: 11-05-2021 Blood Sugar Diagnostic (Freestyle Lite Strips) strip Start: 09-10-2017 End: 09-10-2017 Blood Sugar Diagnostic (Freestyle Lite Strips) strip Start: 09-07-2018 End: 09-07-2018 Blood Sugar Diagnostic (Freestyle Lite Strips) strip Start: 09-07-2018 End: 02-15-2019 Insulin Syringe-Needle U-100 (Bd Insulin Syringe Ultra-Fine) 1 mL 31 gauge x 5/16 syringe Start: 04-15-2018 End: 04-15-2018 Insulin Syringe-Needle U-100 (Bd Insulin Syringe Ultra-Fine) 1 mL 31 gauge x 5/16 syringe Start: 04-15-2018 End: 06-29-2018 insulin syringe-needle U-100 1 mL 31 gauge x 5/16 Start: 07-06-2018 End: 07-06-2018 Pen Needle, Diabetic (Bd Ultra-Fine Opal Pen Needle) 32 gauge x 5/32 needle Start: 02-01-2020 End: 05-19-2020 Pen Needle, Diabetic (Bd Ultra-Fine Opal Pen Needle) 32 gauge x 5/32 needle Start: 05-19-2020 End: 11-23-2022 Pen Needle, Diabetic (Bd Ultra-Fine Opal Pen Needle) 32 gauge x 5/32 needle Start: 09-07-2018 End: 09-07-2018 Pen Needle, Diabetic (Comfort Ez Pen Rincon) 32 gauge x 1/4 needle Start: 10-27-2017 End: 11-24-2017 Pen Needle, Diabetic (Comfort Ez Pen Rincon) 32 gauge x 1/4 needle Start: 11-24-2017 End: 11-24-2017 Acetone (Urine) Test (Ketone Urine Test) strip Start: 11-05-2021 Pen Needle, Diabetic (Bd Ultra-Fine Opal Pen Needle) 32 gauge x 5/32 needle Start: 11-23-2022 Acetone (Urine) Test (Ketone Urine Test) strip Start: 05-08-2021 End: 09-05-2021 Acetone (Urine) Test (Ketone Urine Test) strip Start: 09-05-2021 End: 11-05-2021 Blood Sugar Diagnostic (Freestyle Lite Strips) strip Start: 09-10-2017 End: 09-10-2017 Blood Sugar Diagnostic (Freestyle Lite Strips) strip Start: 09-07-2018 End: 09-07-2018 Blood Sugar Diagnostic (Freestyle Lite Strips) strip Start: 09-07-2018 End: 02-15-2019 Insulin Syringe-Needle U-100 (Bd Insulin Syringe Ultra-Fine) 1 mL 31 gauge x 5/16 syringe Start: 04-15-2018 End: 04-15-2018 Insulin Syringe-Needle U-100 (Bd Insulin Syringe Ultra-Fine) 1 mL 31 gauge x 5/16 syringe Start: 04-15-2018 End: 06-29-2018 insulin syringe-needle U-100 1 mL 31 gauge x 5/16 Start: 07-06-2018 End: 07-06-2018 Pen Needle, Diabetic (Bd Ultra-Fine Opal Pen Needle) 32 gauge x 5/32 needle Start: 02-01-2020 End: 05-19-2020 Pen Needle, Diabetic (Bd Ultra-Fine Opal Pen Needle) 32 gauge x 5/32 needle Start: 05-19-2020 End: 11-23-2022 Pen Needle, Diabetic (Bd Ultra-Fine Opal Pen Needle) 32 gauge x 5/32 needle Start: 09-07-2018 End: 09-07-2018 Pen Needle, Diabetic (Comfort Ez Pen Rincon) 32 gauge x 1/4 needle Start: 10-27-2017 End: 11-24-2017 Pen Needle, Diabetic (Comfort Ez Pen Rincon) 32 gauge x 1/4 needle Start: 11-24-2017 End: 11-24-2017 Acetone (Urine) Test (Ketone Urine Test) strip Start: 04-18-2022 Pen Needle, Diabetic (Bd Ultra-Fine Opal Pen Needle) 32 gauge x 5/32 needle Start: 11-23-2022 Acetone (Urine) Test (Ketone Urine Test) strip Start: 05-08-2021 End: 09-05-2021 Acetone (Urine) Test (Ketone Urine Test) strip Start: 09-05-2021 End: 11-05-2021 Blood Sugar Diagnostic (Freestyle Lite Strips) strip Start: 09-10-2017 End: 09-10-2017 Blood Sugar Diagnostic (Freestyle Lite Strips) strip Start: 09-07-2018 End: 09-07-2018 Blood Sugar Diagnostic (Freestyle Lite Strips) strip Start: 09-07-2018 End: 02-15-2019 Insulin Syringe-Needle U-100 (Bd Insulin Syringe Ultra-Fine) 1 mL 31 gauge x 5/16 syringe Start: 04-15-2018 End: 04-15-2018 Insulin Syringe-Needle U-100 (Bd Insulin Syringe Ultra-Fine) 1 mL 31 gauge x 5/16 syringe Start: 04-15-2018 End: 06-29-2018 insulin syringe-needle U-100 1 mL 31 gauge x 5/16 Start: 07-06-2018 End: 07-06-2018 Pen Needle, Diabetic (Bd Ultra-Fine Opal Pen Needle) 32 gauge x 5/32 needle Start: 02-01-2020 End: 05-19-2020 Pen Needle, Diabetic (Bd Ultra-Fine Opal Pen Needle) 32 gauge x 5/32 needle Start: 05-19-2020 End: 11-23-2022 Pen Needle, Diabetic (Bd Ultra-Fine Opal Pen Needle) 32 gauge x 5/32 needle Start: 09-07-2018 End: 09-07-2018 Pen Needle, Diabetic (Comfort Ez Pen Rincon) 32 gauge x 1/4 needle Start: 10-27-2017 End: 11-24-2017 Pen Needle, Diabetic (Comfort Ez Pen Rincon) 32 gauge x 1/4 needle Start: 11-24-2017 End: 11-24-2017 Acetone (Urine) Test (Ketone Urine Test) strip Start: 11-05-2021 Pen Needle, Diabetic (Bd Ultra-Fine Opal Pen Needle) 32 gauge x 5/32 needle Start: 11-23-2022 Acetone (Urine) Test (Ketone Urine Test) strip Start: 05-08-2021 End: 09-05-2021 Acetone (Urine) Test (Ketone Urine Test) strip Start: 09-05-2021 End: 11-05-2021 Blood Sugar Diagnostic (Freestyle Lite Strips) strip Start: 09-10-2017 End: 09-10-2017 Blood Sugar Diagnostic (Freestyle Lite Strips) strip Start: 09-07-2018 End: 09-07-2018 Blood Sugar Diagnostic (Freestyle Lite Strips) strip Start: 09-07-2018 End: 02-15-2019 Insulin Syringe-Needle U-100 (Bd Insulin Syringe Ultra-Fine) 1 mL 31 gauge x 5/16 syringe Start: 04-15-2018 End: 04-15-2018 Insulin Syringe-Needle U-100 (Bd Insulin Syringe Ultra-Fine) 1 mL 31 gauge x 5/16 syringe Start: 04-15-2018 End: 06-29-2018 insulin syringe-needle U-100 1 mL 31 gauge x 5/16 Start: 07-06-2018 End: 07-06-2018 Pen Needle, Diabetic (Bd Ultra-Fine Opal Pen Needle) 32 gauge x 5/32 needle Start: 02-01-2020 End: 05-19-2020 Pen Needle, Diabetic (Bd Ultra-Fine Opal Pen Needle) 32 gauge x 5/32 needle Start: 05-19-2020 End: 11-23-2022 Pen Needle, Diabetic (Bd Ultra-Fine Opal Pen Needle) 32 gauge x 5/32 needle Start: 09-07-2018 End: 09-07-2018 Pen Needle, Diabetic (Comfort Ez Pen Rincon) 32 gauge x 1/4 needle Start: 10-27-2017 End: 11-24-2017 Pen Needle, Diabetic (Comfort Ez Pen Rincon) 32 gauge x 1/4 needle Start: 11-24-2017 End: 11-24-2017 Test blood sugar (s) 4 times daily. Dx: Type 1 DM - Uncontrolled E 10.65 Insulin: Yes [id number] Start: 12-24-2023 End: 12-24-2023 Use as instructe d 10 times daily [id number] Start: 08-23-2015 End: 12-24-2023 Use with insulin injections [id number] Start: 09-13-2016 End: 12-24-2023 Supply to be use d as directed for insulin administration up to 3 times daily. [id number] Start: 01-16-2016 End: 12-24-2023 Uses up to 5 bro ly with insulin injection. Give with each insulin administration. [id number] Start: 04-14-2024 Use as instructe d up to 6 times daily [id number] Start: 08-22-2016 End: 06-07-2021 Acetone (Urine) Test (Ketone Urine Test) strip Start: 11-05-2021 Pen Needle, Diabetic (Bd Ultra-Fine Opal Pen Needle) 32 gauge x 5/32 needle Start: 11-23-2022 Acetone (Urine) Test (Ketone Urine Test) strip Start: 05-08-2021 End: 09-05-2021 Acetone (Urine) Test (Ketone Urine Test) strip Start: 09-05-2021 End: 11-05-2021 Blood Sugar Diagnostic (Freestyle Lite Strips) strip Start: 09-10-2017 End: 09-10-2017 Blood Sugar Diagnostic (Freestyle Lite Strips) strip Start: 09-07-2018 End: 09-07-2018 Blood Sugar Diagnostic (Freestyle Lite Strips) strip Start: 09-07-2018 End: 02-15-2019 Insulin Syringe-Needle U-100 (Bd Insulin Syringe Ultra-Fine) 1 mL 31 gauge x 5/16 syringe Start: 04-15-2018 End: 04-15-2018 Insulin Syringe-Needle U-100 (Bd Insulin Syringe Ultra-Fine) 1 mL 31 gauge x 5/16 syringe Start: 04-15-2018 End: 06-29-2018 Insulin Syringe-Needle U-100 (Bd Insulin Syringe Ultra-Fine) 1 mL 31 gauge x 5/16 syringe Start: 07-06-2018 End: 07-06-2018 Pen Needle, Diabetic (Bd Ultra-Fine Opal Pen Needle) 32 gauge x 5/32 needle Start: 02-01-2020 End: 05-19-2020 Pen Needle, Diabetic (Bd Ultra-Fine Opal Pen Needle) 32 gauge x 5/32 needle Start: 05-19-2020 End: 11-23-2022 Pen Needle, Diabetic (Bd Ultra-Fine Opal Pen Needle) 32 gauge x 5/32 needle Start: 09-07-2018 End: 09-07-2018 Pen Needle, Diabetic (Comfort Ez Pen Rincon) 32 gauge x 1/4 needle Start: 10-27-2017 End: 11-24-2017 Pen Needle, Diabetic (Comfort Ez Pen Rincon) 32 gauge x 1/4 needle Start: 11-24-2017 End: 11-24-2017 Acetone (Urine) Test (Ketone Urine Test) strip Start: 11-05-2021 Pen Needle, Diabetic (Bd Ultra-Fine Opal Pen Needle) 32 gauge x 5/32 needle Start: 11-23-2022 Acetone (Urine) Test (Ketone Urine Test) strip Start: 05-08-2021 End: 09-05-2021 Acetone (Urine) Test (Ketone Urine Test) strip Start: 09-05-2021 End: 11-05-2021 Blood Sugar Diagnostic (Freestyle Lite Strips) strip Start: 09-10-2017 End: 09-10-2017 Blood Sugar Diagnostic (Freestyle Lite Strips) strip Start: 09-07-2018 End: 09-07-2018 Blood Sugar Diagnostic (Freestyle Lite Strips) strip Start: 09-07-2018 End: 02-15-2019 Insulin Syringe-Needle U-100 (Bd Insulin Syringe Ultra-Fine) 1 mL 31 gauge x 5/16 syringe Start: 04-15-2018 End: 04-15-2018 Insulin Syringe-Needle U-100 (Bd Insulin Syringe Ultra-Fine) 1 mL 31 gauge x 5/16 syringe Start: 04-15-2018 End: 06-29-2018 Insulin Syringe-Needle U-100 (Bd Insulin Syringe Ultra-Fine) 1 mL 31 gauge x 5/16 syringe Start: 07-06-2018 End: 07-06-2018 Pen Needle, Diabetic (Bd Ultra-Fine Opal Pen Needle) 32 gauge x 5/32 needle Start: 02-01-2020 End: 05-19-2020 Pen Needle, Diabetic (Bd Ultra-Fine Opal Pen Needle) 32 gauge x 5/32 needle Start: 05-19-2020 End: 11-23-2022 Pen Needle, Diabetic (Bd Ultra-Fine Opal Pen Needle) 32 gauge x 5/32 needle Start: 09-07-2018 End: 09-07-2018 Pen Needle, Diabetic (Comfort Ez Pen Rincon) 32 gauge x 1/4 needle Start: 10-27-2017 End: 11-24-2017 Pen Needle, Diabetic (Comfort Ez Pen Rincon) 32 gauge x 1/4 needle Start: 11-24-2017 End: 11-24-2017 Acetone (Urine) Test (Ketone Urine Test) strip Start: 11-05-2021 Pen Needle, Diabetic (Bd Ultra-Fine Opal Pen Needle) 32 gauge x 5/32 needle Start: 11-23-2022 Acetone (Urine) Test (Ketone Urine Test) strip Start: 05-08-2021 End: 09-05-2021 Acetone (Urine) Test (Ketone Urine Test) strip Start: 09-05-2021 End: 11-05-2021 Blood Sugar Diagnostic (Freestyle Lite Strips) strip Start: 09-10-2017 End: 09-10-2017 Blood Sugar Diagnostic (Freestyle Lite Strips) strip Start: 09-07-2018 End: 09-07-2018 Blood Sugar Diagnostic (Freestyle Lite Strips) strip Start: 09-07-2018 End: 02-15-2019 Insulin Syringe-Needle U-100 (Bd Insulin Syringe Ultra-Fine) 1 mL 31 gauge x 5/16 syringe Start: 04-15-2018 End: 04-15-2018 Insulin Syringe-Needle U-100 (Bd Insulin Syringe Ultra-Fine) 1 mL 31 gauge x 5/16 syringe Start: 04-15-2018 End: 06-29-2018 Insulin Syringe-Needle U-100 (Bd Insulin Syringe Ultra-Fine) 1 mL 31 gauge x 5/16 syringe Start: 07-06-2018 End: 07-06-2018 Pen Needle, Diabetic (Bd Ultra-Fine Opal Pen Needle) 32 gauge x 5/32 needle Start: 02-01-2020 End: 05-19-2020 Pen Needle, Diabetic (Bd Ultra-Fine Opal Pen Needle) 32 gauge x 5/32 needle Start: 05-19-2020 End: 11-23-2022 Pen Needle, Diabetic (Bd Ultra-Fine Opal Pen Needle) 32 gauge x 5/32 needle Start: 09-07-2018 End: 09-07-2018 Pen Needle, Diabetic (Comfort Ez Pen Rincon) 32 gauge x 1/4 needle Start: 10-27-2017 End: 11-24-2017 Pen Needle, Diabetic (Comfort Ez Pen Rincon) 32 gauge x 1/4 needle Start: 11-24-2017 End: 11-24-2017 Acetone (Urine) Test (Ketone Urine Test) strip Start: 11-05-2021 Pen Needle, Diabetic (Bd Ultra-Fine Opal Pen Needle) 32 gauge x 5/32 needle Start: 11-23-2022 Acetone (Urine) Test (Ketone Urine Test) strip Start: 05-08-2021 End: 09-05-2021 Acetone (Urine) Test (Ketone Urine Test) strip Start: 09-05-2021 End: 11-05-2021 Blood Sugar Diagnostic (Freestyle Lite Strips) strip Start: 09-10-2017 End: 09-10-2017 Blood Sugar Diagnostic (Freestyle Lite Strips) strip Start: 09-07-2018 End: 09-07-2018 Blood Sugar Diagnostic (Freestyle Lite Strips) strip Start: 09-07-2018 End: 02-15-2019 Insulin Syringe-Needle U-100 (Bd Insulin Syringe Ultra-Fine) 1 mL 31 gauge x 5/16 syringe Start: 04-15-2018 End: 04-15-2018 Insulin Syringe-Needle U-100 (Bd Insulin Syringe Ultra-Fine) 1 mL 31 gauge x 5/16 syringe Start: 04-15-2018 End: 06-29-2018 Insulin Syringe-Needle U-100 (Bd Insulin Syringe Ultra-Fine) 1 mL 31 gauge x 5/16 syringe Start: 07-06-2018 End: 07-06-2018 Pen Needle, Diabetic (Bd Ultra-Fine Opal Pen Needle) 32 gauge x 5/32 needle Start: 02-01-2020 End: 05-19-2020 Pen Needle, Diabetic (Bd Ultra-Fine Opal Pen Needle) 32 gauge x 5/32 needle Start: 05-19-2020 End: 11-23-2022 Pen Needle, Diabetic (Bd Ultra-Fine Opal Pen Needle) 32 gauge x 5/32 needle Start: 09-07-2018 End: 09-07-2018 Pen Needle, Diabetic (Comfort Ez Pen Rincon) 32 gauge x 1/4 needle Start: 10-27-2017 End: 11-24-2017 Pen Needle, Diabetic (Comfort Ez Pen Rincon) 32 gauge x 1/4 needle Start: 11-24-2017 End: 11-24-2017 Goals Date Patient Goal Desired Activity /State Functional Status Date Assessment Result Facility 11-28-2024 Functional status Ambulates;Up a d hugo;Bedrest [facility] Work Phone: 11-28-2023 Functional status Up ad hugo [facility] Work Phone: 11-28-2023 Functional status Tolerates Activity Well [facility] Work Phone: 10-17-2023 Functional status Ambulates;Up ad hugo [facility] Work Phone: 03-05-2023 Functional status Ambulates;Up a d hugo;Bathroom Privilege [facility] Work Phone: 02-17-2023 Functional status Ambulates;Up ad hugo [facility] Work Phone: 12-27-2022 Functional status Ambulates [facility] Work Phone: 11-23-2022 Functional status Ambulates [facility] Work Phone: 02-16-2015 Are you deaf, or do you have serious difficulty hearing No 02/16/2015 10:57 AM Kaitlin Heard Ma [facility] 02-16-2015 Are you blind, or do you have serious difficulty seeing, even when wearing glasses No 02/16/2015 10:57 AM Kaitlin Heard Ma [facility] 02-16-2015 Do you have serious difficulty walking or climbing stairs No 02/16/2015 10:57 AM Kaitlin Heard Ma [facility] 02-16-2015 Do you have difficul ty dressing or bathing No 02/16/2015 10:57 AM Kaitlin Heard Ma [facility] 02-16-2015 Because of a physica l, mental, or emotional condition, do you have difficulty doing errands alone such as visiting a physician's office or shopping No 02/16/2015 10:57 AM Kaitlin Heard Ma [facility] Mental Status Date Assessment Result Facility 11-27-2024 Cognitive function Awake;Alert;A ppropriate;Fol lows Commands [facility] Work Phone: 11-28-2023 Cognitive function Voice/Name [facility] Work Phone: 11-25-2023 Cognitive function Level Of Cons ciousness Awake;Alert;Appropriate [facility] Work Phone: 11-11-2023 Cognitive function Level Of Cons ciousness Awake;Alert;Appropriate [facility] Work Phone: 10-17-2023 Cognitive function Voice/Name [facility] Work Phone: 10-16-2023 Cognitive function Level Of Cons ciousness Awake;Alert;Appropriate;Fol lows Commands [facility] Work Phone: 03-05-2023 Cognitive function Voice/Name [facility] Work Phone: 03-03-2023 Cognitive function Awake;Alert;Appropriat e [facility] Work Phone: 03-01-2023 Cognitive function Awake;Alert;A ppropriate;Fol lows Commands [facility] Work Phone: 02-16-2023 Cognitive function Voice/Name [facility] Work Phone: 02-15-2023 Cognitive function Level Of Cons ciousness Drowsy;Lethargic [facility] Work Phone: 12-27-2022 Cognitive function Voice/Name [facility] Work Phone: 12-23-2022 Cognitive function Level Of Cons ciousness Awake;Alert;Appropriate [facility] Work Phone: 11-23-2022 Cognitive function Voice/Name [facility] Work Phone: 02-16-2015 Because of a physica l, mental, or emotional condition, do you have serious difficulty concentrating, remembering, or making decisions Yes 02/16/2015 10:57 AM Kaitlin Heard Ma Yes [facility] Clinical Notes 07-29-2016 to 11-28-2024 Note Date & Type Note Facility 11-28-2024 Discharge summary Note Date/Time November 28, 2024 1:09p m [facility] Medical Records Department [address] [place] [address] Discharge Summary 11/28/24 1300 MR#: [id number] Acct: [id number] Name: KALIE DESIR Rep #:[id number] : 2000 24 From: Damien Villagran DO PCP: Minnie Hodge Status:ADM I N Location: ICU [place] [address] 3-1 Providers Date of Admission: 11/27/24 Primary Care Physician: Minnie Hodge Reason For Visit: DKA Diagnosis Discharge Diagnosis (1) Diabetic ketoacidosis: Status: Resolved Code(s): E11.10 - Type 2 diabetes mellitus with ketoacidosis without coma Qualifiers: Diabetes mellitus type: type 1 Diabetes mellitus complication detail: without coma Qualified Code(s): E10.10 - Type 1 diabetes mellitus with ketoacidosis without coma (2) Insulin dependent type 1 diabetes mellitus: Status: Inactive Code(s): E10.9 - Type 1 diabetes mellitus without complications Qualifiers: Diabetes mellitus complication status: with ketoacidosis Diabetes mellitus complication detail: without coma Qualified Code(s): E10.10 - Type 1 diabetes mellitus with ketoacidosis without coma Plan DKA in setting of chronic type 1 diabetes * a1c 12.4, up from 11 * gap closed x 3. Will resume glargine and prandial insulin. DC insulin gtt. Start diet * Patient states that she was gone be running out of insulin so she was trying to stretch her insulin out. Was to have insulin prescribed in few days but had since run out. Hypokalemia * replace Medications at Discharge Home Medications albuterol sulfate 90 mcg/actuation aerosol inhaler (Ventolin HFA) 2 puff inhalation Q4H PRN SHORTNES OF BREATH/WHEEZING 08/25/18 Ketone Urine Test (acetone (urine) test) #50 ea 11/05/21 fluticasone propionate 50 mcg/actuation nasal spray,suspension 2 spray intranasal DAILY NASAL CONGESTION 11/21/22 pen needle, diabetic 32 gauge x 5/32 (BD Ultra-Fine [place] Pen Needle) #120 ea 11/23/22 insulin lispro 100 unit/mL subcutaneous pen (Humalog KwikPen (U-100) Insulin) 15unit (0.15 mL) subcut TIDAC type 1 DM #0 mL 05/14/24 insulin glargine 100 unit/mL (3 mL) subcutaneous pen (Basaglar KwikPen U-100 Insulin) 20 unit (0.2 mL) subcut DAILY type 1 DM #15 mL 11/28/24 Hospital Course Operations None Procedures None Summary of Care Provided Hospital Course: Patient presents with DKA. Patient was taking less insulin than she was really prescribed because she was running out and tried to stretch the insulin she had out. She states that she just needs insulin glargine for discharge does not need her mealtime insulin. Weight / BMI Weight Weight: 74 kg Body Mass Index (BMI) 32.8 ABG / Lab / Microbiology Data 11/28/24 03:55 11/28/24 08:25 Laboratory: Laboratory Results - last 24 hr 11/27/24 13:16: WBC 16.1 H, RBC 5.14, Hgb 14.9, Hct 44.4, MCV 86.4, MCH 29.0, MCHC 33.6, RDW Std Deviation 40.5, RDW Coeff of Marilynn 12.9, Plt Count 410, MPV 8.7, Immature Gran % (Auto) 0.400, Neut % (Auto) 91.3 H, Lymph % (Auto) 5.9 L, [place] % (Auto) 2.1, Eos % (Auto) 0.0, Baso % (Auto) 0.3, Absolute Neuts (auto) 14.7 H, Absolute Lymphs (auto) 0.94, Nucleated RBC % 0, Sodium 136, Potassium 3.6, Chloride 97 L, Carbon Dioxide 11.2 L, Anion Gap 28 H, BUN 16, Creatinine 0.82, Estim Creat Clear Calc 87.69, Est GFR (MDRD) Non-Af 102, BUN/Creatinine Ratio 20.1 H, Glucose 335 H, Calcium 10.0, b-Hydroxybutyric mmol/L 5.8 11/27/24 14:25: Urine Color Yellow, Urine Clarity Clear, Urine pH 5.0, Ur Specific [place] 1.025, Urine Protein 30 H, Urine Glucose (UA) 1000 H, Urine Ketones 150 A*, Urine Occult Blood 10 H, Urine Nitrite Negative, Urine BilirubinNegative, Urine Urobilinogen Normal, Ur Leukocyte Esterase Negative, Urine RBC 0SEEN, Urine WBC 0 SEEN, Ur Squamous Epith Cells 0-5 SEEN, Urine Bacteria 0 SEEN,Hyaline Casts 0-5 SEEN, Urine Mucus 0 SEEN, Urine Test Negative 11/27/24 15:21: POC Glucose 199 H 11/27/24 15:58: POC Glucose 181 H 11/27/24 16:10: Sodium 138, Potassium 3.7, Chloride 106, Carbon Dioxide 13.0 L, Anion Gap 20 H, BUN 15, Creatinine 0.68 L, Estim Creat Clear Calc 104.06, Est GFR (MDRD) Non-Af 123, BUN/Creatinine Ratio 21.8 H, Glucose 205 H, Calcium 8.3, Magnesium 2.0, TSH 3.740 11/27/24 17:09: POC Glucose 174 H 11/27/24 18:02: POC Glucose 155 H 11/27/24 19:02: POC Glucose 140 H 11/27/24 20:04: POC Glucose 126 H 11/27/24 20:10: Sodium 138, Potassium 3.4, Chloride 109 H, Carbon Dioxide 13.8 L, Anion Gap 15, BUN 12, Creatinine 0.59 L, Estim Creat Clear Calc 119.94, Est GFR (MDRD) Non-Af 128, BUN/Creatinine Ratio 20.3 H, Glucose 162 H, Calcium 7.5 L 11/27/24 21:08: POC Glucose 139 H 11/27/24 21:58: POC Glucose 187 H 11/27/24 23:13: POC Glucose 214 H 11/27/24 23:59: POC Glucose 190 H 11/28/24 00:40: Sodium 139, Potassium 3.0 L, Chloride 110 H, Carbon Dioxide 16.5L, Anion Gap 12, BUN 9, Creatinine 0.52 L, Estim Creat Clear Calc 136.08, Est GFR (MDRD) Non-Af 131, BUN/Creatinine Ratio 17.4, Glucose 179 H, Calcium 7.3 L 11/28/24 01:07: POC Glucose 155 H 11/28/24 01:56: POC Glucose 126 H 11/28/24 02:00: b-Hydroxybutyric mmol/L 1.3 11/28/24 03:08: POC Glucose 120 H 11/28/24 03:55: WBC 12.4 H, RBC 3.98 L, Hgb 11.5 L, Hct 34.0 L, MCV 85.4, MCH 28.9, MCHC 33.8, RDW Std Deviation 39.4, RDW Coeff of Marilynn 12.7, Plt Count 296, MPV 8.7, Immature Gran % (Auto) 0.300, Neut % (Auto) 82.4 H, Lymph % (Auto) 10.4L, [place] % (Auto) 6.7, Eos % (Auto) 0.0, Baso % (Auto) 0.2, Absolute Neuts (auto)10.3 H, Absolute Lymphs (auto) 1.29, Nucleated RBC % 0, Sodium 138, Potassium 2.9 L, Chloride 108, Carbon Dioxide 15.6 L, Anion Gap 14, BUN 7, Creatinine 0.45L, Estim Creat Clear Calc 157.25, Est GFR (MDRD) Non-Af 136, BUN/Creatinine Ratio 16.4, Glucose 165 H, Hemoglobin A1c 12.4 H, Calcium 7.1 L, Magnesium 1.8, b-Hydroxybutyric mmol/L 2.9 11/28/24 03:58: POC Glucose 156 H 11/28/24 05:02: POC Glucose 144 H 11/28/24 05:58: POC Glucose 143 H 11/28/24 07:28: POC Glucose 134 H 11/28/24 08:10: POC Glucose 132 H 11/28/24 08:25: Sodium 135, Potassium 2.9 L, Chloride 106, Carbon Dioxide 19.1 L, Anion Gap 10, BUN 5, Creatinine 0.46 L, Estim Creat Clear Calc 166.47, Est GFR(MDRD) Non-Af 135, BUN/Creatinine Ratio 11.1, Glucose 156 H, Calcium 7.1 L 11/28/24 12:12: POC Glucose 129 H ABG: ABG 11/27/24 13:25 Specimen Type LUIS Sample Site Not entered VBG pH 7.29 L VBG pO2 80 H VBG HCO3 12 L VBG Total CO2 12 L VBG O2 Sat (Calc) 95 H VBG Base Excess -15 L POC Mix VBG pCO2 Pt Tmp 24.2 L O2 Delivery Device Not entered Radiography Diagnostic Testing: Radiology Impression Chest X-Ray 11/27/24 13:39 IMPRESSION: No acute cardiopulmonary process. Reading Location: [facility] D/C Instructions Discharge Diet: 2000 Calorie Control Diet DC O2, CPAP, BIPAP Needs Home O2 Discharge instructions: No Meaningful Use Info Meaningful Use Meaningful Use Diagnoses (Choose all that apply): None applicable Ischemic Stroke Statin Dosing Therapy Reference: STATIN DOSE THERAPY REFERENCE: * Patients > 75 years receive moderate or high dose statin therapy. * Patients 75 years or YOUNGER should receive HIGH intensity statin dose unless contraindicated. You will be required to document reason for non-treatment if statin daily dose does not meet guidelines. HIGH DOSE STATIN THERAPY DAILY Atorvastatin > than or = to 40 mg Rosuvastatin > than or = to 20 mg Amlodipine + Atorvastatin > than or = to 2.5/40 mg Ezetimibe + Simvastatin 10/80 mg Simvastatin 80mg Discharge Plan Admission Admit Date/Time: 11/27/24 15:42 Primary Reason for Your Visit: Diabetic ketoacidosis Attending Provider: Damien Villagran Primary Care Provider: Minnie Hodge Consulting Providers: Zaida Hoff Discharge Orders/Prescriptions Prescriptions: Continued albuterol sulfate [Ventolin HFA] 18 GM HFA aerosol inhaler 2 puff inhalation Q4H PRN (Reason: SHORTNES OF BREATH/WHEEZING) fluticasone propionate 50 mcg/actuation spray,suspension 2 spray INTRANASAL DAILY (DME) pen needle, diabetic [BD Ultra-Fine Opal Pen Needle] 32 gauge x 5/32 needle See Rx Instructions .ROUTE .MEDSUPPLY Qty: 120 5RF Rx Instructions: 4 times daily insulin lispro [Humalog KwikPen Insulin] 100 unit/mL Insulin Pen 15 unit subcut TIDAC Qty: 0 0RF insulin glargine [Basaglar KwikPen U-100 Insulin] 100 unit/mL (3 mL) insulin pen 20 unit subcut DAILY Qty: 15 1RF (DME) Ketone Urine Test Strip See Rx Instructions .ROUTE .MEDSUPPLY Qty: 50 1RF Rx Instructions: once/day Discontinued (DME) Dexcom G6 Sensor Device See Rx Instructions .Route Qty: 9 0RF Rx Instructions: 1 sensor q 10 days (DME) Dexcom G6 Transmitter Device See Rx Instructions .Route Qty: 1 0RF Rx Instructions: As directed Referrals / Follow Up: [facility] [Provider Group] - Within 1 Month Minnie Hodge [Primary Care Provider] - Within 2 Weeks Disposition Disposition (needs filled in before D/C Order can be placed): Home, Self Care Charges/Coding Visit Charges Inpatient E&M: 46568 Disch Hosp 11/28/24 4198 <Electronically signed by Damien Villagran DO> Cosigner Signature (if applicable): CC: Minnie Hodge; Dr. Damien Villagran DO~ Signed [facility] Work Phone: [phone]) 397-346905-11-2025 Progress note Author Damien Villagran [facility] Note Date/Time November 28, 2024 12:52 pm [facility] Medical Records Department [address] [place] [address] Progress Note - Hospitalist 11/28/24 0750 MR#: [id number] Acct: [id number] Name: KALIE DESIR Rep #[id number] : 2000 24 From: Damien Villagran DO PCP: Minnie Hodge Status:ADM I N Location: ICU [place] [address] 3-1 Reason for Visit Reason for Visit: Diagnoses Type 1 diabetes mellitus with ketoacidosis without coma (11/27/24) Subjective Subjective Feeling well. States that she has cut back on on marijuana. Objective Data Objective Data Vital Signs: Vital Signs Temp Pulse Resp BP Pulse Ox O2 Del Method 36.6 C 77 22 H 123/65 H 100 Room Air 11/28/24 06:00 11/28/24 07:00 11/28/24 07:00 11/28/24 07:00 11/28/24 07:00 11/28/24 07:00 Oxygen Delivery Method Room Air Weight: 74 kg Body Mass Index (BMI) 32.8 Intake & Output: Intake and Output for Last 24 Hours 11/26/24 11/27/24 11/28/24 23:59 23:59 23:59 Intake Total 5010.14 / 5014.14 2021 Balance 5010.14 / 5014.14 2021 Lab / Micro Data 11/28/24 03:55 11/28/24 08:25 Labs: Laboratory Results - last 24 hr 11/27/24 13:16: WBC 16.1 H, RBC 5.14, Hgb 14.9, Hct 44.4, MCV 86.4, MCH 29.0, MCHC 33.6, RDW Std Deviation 40.5, RDW Coeff of Marilynn 12.9, Plt Count 410, MPV 8.7, Immature Gran % (Auto) 0.400, Neut % (Auto) 91.3 H, Lymph % (Auto) 5.9 L, [place] % (Auto) 2.1, Eos % (Auto) 0.0, Baso % (Auto) 0.3, Absolute Neuts (auto) 14.7 H, Absolute Lymphs (auto) 0.94, Nucleated RBC % 0, Sodium 136, Potassium 3.6, Chloride 97 L, Carbon Dioxide 11.2 L, Anion Gap 28 H, BUN 16, Creatinine 0.82, Estim Creat Clear Calc 87.69, Est GFR (MDRD) Non-Af 102, BUN/Creatinine Ratio 20.1 H, Glucose 335 H, Calcium 10.0, b-Hydroxybutyric mmol/L 5.8 11/27/24 14:25: Urine Color Yellow, Urine Clarity Clear, Urine pH 5.0, Ur Specific [place] 1.025, Urine Protein 30 H, Urine Glucose (UA) 1000 H, Urine Ketones 150 A*, Urine Occult Blood 10 H, Urine Nitrite Negative, Urine BilirubinNegative, Urine Urobilinogen Normal, Ur Leukocyte Esterase Negative, Urine RBC 0SEEN, Urine WBC 0 SEEN, Ur Squamous Epith Cells 0-5 SEEN, Urine Bacteria 0 SEEN,Hyaline Casts 0-5 SEEN, Urine Mucus 0 SEEN, Urine Test Negative 11/27/24 15:21: POC Glucose 199 H 11/27/24 15:58: POC Glucose 181 H 11/27/24 16:10: Sodium 138, Potassium 3.7, Chloride 106, Carbon Dioxide 13.0 L, Anion Gap 20 H, BUN 15, Creatinine 0.68 L, Estim Creat Clear Calc 104.06, Est GFR (MDRD) Non-Af 123, BUN/Creatinine Ratio 21.8 H, Glucose 205 H, Calcium 8.3, Magnesium 2.0, TSH 3.740 11/27/24 17:09: POC Glucose 174 H 11/27/24 18:02: POC Glucose 155 H 11/27/24 19:02: POC Glucose 140 H 11/27/24 20:04: POC Glucose 126 H 11/27/24 20:10: Sodium 138, Potassium 3.4, Chloride 109 H, Carbon Dioxide 13.8 L, Anion Gap 15, BUN 12, Creatinine 0.59 L, Estim Creat Clear Calc 119.94, Est GFR (MDRD) Non-Af 128, BUN/Creatinine Ratio 20.3 H, Glucose 162 H, Calcium 7.5 L 11/27/24 21:08: POC Glucose 139 H 11/27/24 21:58: POC Glucose 187 H 11/27/24 23:13: POC Glucose 214 H 11/27/24 23:59: POC Glucose 190 H 11/28/24 00:40: Sodium 139, Potassium 3.0 L, Chloride 110 H, Carbon Dioxide 16.5L, Anion Gap 12, BUN 9, Creatinine 0.52 L, Estim Creat Clear Calc 136.08, Est GFR (MDRD) Non-Af 131, BUN/Creatinine Ratio 17.4, Glucose 179 H, Calcium 7.3 L 11/28/24 01:07: POC Glucose 155 H 11/28/24 01:56: POC Glucose 126 H 11/28/24 02:00: b-Hydroxybutyric mmol/L 1.3 11/28/24 03:08: POC Glucose 120 H 11/28/24 03:55: WBC 12.4 H, RBC 3.98 L, Hgb 11.5 L, Hct 34.0 L, MCV 85.4, MCH 28.9, MCHC 33.8, RDW Std Deviation 39.4, RDW Coeff of Marilynn 12.7, Plt Count 296, MPV 8.7, Immature Gran % (Auto) 0.300, Neut % (Auto) 82.4 H, Lymph % (Auto) 10.4L, [place] % (Auto) 6.7, Eos % (Auto) 0.0, Baso % (Auto) 0.2, Absolute Neuts (auto)10.3 H, Absolute Lymphs (auto) 1.29, Nucleated RBC % 0, Sodium 138, Potassium 2.9 L, Chloride 108, Carbon Dioxide 15.6 L, Anion Gap 14, BUN 7, Creatinine 0.45L, Estim Creat Clear Calc 157.25, Est GFR (MDRD) Non-Af 136, BUN/Creatinine Ratio 16.4, Glucose 165 H, Hemoglobin A1c 12.4 H, Calcium 7.1 L, Magnesium 1.8, b-Hydroxybutyric mmol/L 2.9 11/28/24 03:58: POC Glucose 156 H 11/28/24 05:02: POC Glucose 144 H 11/28/24 05:58: POC Glucose 143 H ABG Data ABG results: ABG 11/27/24 13:25 Specimen Type LUIS Sample Site Not entered VBG pH 7.29 L VBG pO2 80 H VBG HCO3 12 L VBG Total CO2 12 L VBG O2 Sat (Calc) 95 H VBG Base Excess -15 L POC Mix VBG pCO2 Pt Tmp 24.2 L O2 Delivery Device Not entered Radiography Diagnostic Testing: Radiology Impression Chest X-Ray 11/27/24 13:39 IMPRESSION: No acute cardiopulmonary process. Reading Location: [facility] Physical Exam Const alert and no apparent distress HEENT head/scalp atraumatic and moist oral mucous membranes Resp normal respiratory effort, no retractions, no use of accessory muscles and clearto auscultation bilaterally Assessment & Plan Assessment/Plan (1) Diabetic ketoacidosis: QUALIFIERS: Diabetes mellitus complication detail: without coma Diabetes mellitus type: type 1 Qualified Code(s): E10.10 - Type 1 diabetes mellitus with ketoacidosis without coma (2) Insulin dependent type 1 diabetes mellitus: QUALIFIERS: Diabetes mellitus complication detail: without coma Diabetes mellitus complication status: with ketoacidosis Qualified Code(s): E10.10 - Type 1 diabetes mellitus with ketoacidosis without coma PLAN: Plan DKA in setting of chronic type 1 diabetes * a1c 12.4, up from 11 * gap closed x 3. Will resume glargine and prandial insulin. DC insulin gtt. Start diet * Patient states that she was gone be running out of insulin so she was trying to stretch her insulin out. Was to have insulin prescribed in few days but had since run out. Hypokalemia * replace 11/28/24 1252 <Electronically signed by Damien Villagran DO> Cosigner Signature (if applicable): CC: ~ Signed [facility] Work Phone: [phone] [phone] Discharge summary [facility] Medical Records Department [address] [place] [address] Discharge Summary 11/28/24 1300 MR#: [id number] Acct: [id number] Name: KALIE DESIR Rep #:[id number] : 2000 24 From: Damien Villagran DO PCP: Minnie Hodge Status:ADM I N [facility] Providers Date of Admission: 11/27/24 Primary Care Physician: Minnie Hodge Reason For Visit: DKA Diagnosis Discharge Diagnosis (1) Diabetic ketoacidosis: Status: Resolved Code(s): E11.10 - Type 2 diabetes mellitus with ketoacidosis without coma Qualifiers: Diabetes mellitus type: type 1 Diabetes mellitus complication detail: without coma Qualified Code(s): E10.10 - Type 1 diabetes mellitus with ketoacidosis without coma (2) Insulin dependent type 1 diabetes mellitus: Status: Inactive Code(s): E10.9 - Type 1 diabetes mellitus without complications Qualifiers: Diabetes mellitus complication status: with ketoacidosis Diabetes mellitus complication detail: without coma Qualified Code(s): E10.10 - Type 1 diabetes mellitus with ketoacidosis without coma Plan DKA in setting of chronic type 1 diabetes * a1c 12.4, up from 11 * gap closed x 3. Will resume glargine and prandial insulin. DC insulin gtt. Start diet * Patient states that she was gone be running out of insulin so she was trying to stretch her insulin out. Was to have insulin prescribed in few days but had since run out. Hypokalemia * replace Medications at Discharge Home Medications albuterol sulfate 90 mcg/actuation aerosol inhaler (Ventolin HFA) 2 puff inhalation Q4H PRN SHORTNES OF BREATH/WHEEZING 08/25/18 Ketone Urine Test (acetone (urine) test) #50 ea 11/05/21 fluticasone propionate 50 mcg/actuation nasal spray,suspension 2 spray intranasal DAILY NASAL CONGESTION 11/21/22 pen needle, diabetic 32 gauge x 5/32 (BD Ultra-Fine Opal Pen Needle) #120 ea 11/23/22 insulin lispro 100 unit/mL subcutaneous pen (Humalog KwikPen (U-100) Insulin) 15unit (0.15 mL) subcut TIDAC type 1 DM #0 mL 05/14/24 insulin glargine 100 unit/mL (3 mL) subcutaneous pen (Basaglar KwikPen U-100 Insulin) 20 unit (0.2 mL) subcut DAILY type 1 DM #15 mL 11/28/24 Hospital Course Operations None Procedures None Summary of Care Provided Hospital Course: Patient presents with DKA. Patient was taking less insulin than she was really prescribed because she was running out and tried to stretch the insulin she had out. She states that she just needs insulin glargine for discharge does not need her mealtime insulin. Weight / BMI Weight Weight: 74 kg Body Mass Index (BMI) 32.8 ABG / Lab / Microbiology Data 11/28/24 03:55 11/28/24 08:25 Laboratory: Laboratory Results - last 24 hr 11/27/24 13:16: WBC 16.1 H, RBC 5.14, Hgb 14.9, Hct 44.4, MCV 86.4, MCH 29.0, MCHC 33.6, RDW Std Deviation 40.5, RDW Coeff of Marilynn 12.9, Plt Count 410, MPV 8.7, Immature Gran % (Auto) 0.400, Neut % (Auto) 91.3 H, Lymph % (Auto) 5.9 L, [place] % (Auto) 2.1, Eos % (Auto) 0.0, Baso % (Auto) 0.3, Absolute Neuts (auto) 14.7 H, Absolute Lymphs (auto) 0.94, Nucleated RBC % 0, Sodium 136, Potassium 3.6, Chloride 97 L, Carbon Dioxide 11.2 L, Anion Gap 28 H, BUN 16, Creatinine 0.82, Estim Creat Clear Calc 87.69, Est GFR (MDRD) Non-Af 102, BUN/Creatinine Ratio 20.1 H, Glucose 335 H, Calcium 10.0, b-Hydroxybutyric mmol/L 5.8 11/27/24 14:25: Urine Color Yellow, Urine Clarity Clear, Urine pH 5.0, Ur Specific [place] 1.025, Urine Protein 30 H, Urine Glucose (UA) 1000 H, Urine Ketones 150 A*, Urine Occult Blood 10 H, Urine Nitrite Negative, Urine BilirubinNegative, Urine Urobilinogen Normal, Ur Leukocyte Esterase Negative, Urine RBC 0SEEN, Urine WBC 0 SEEN, Ur Squamous Epith Cells 0-5 SEEN, Urine Bacteria 0 SEEN,Hyaline Casts 0-5 SEEN, Urine Mucus 0 SEEN, Urine Test Negative 11/27/24 15:21: POC Glucose 199 H 11/27/24 15:58: POC Glucose 181 H 11/27/24 16:10: Sodium 138, Potassium 3.7, Chloride 106, Carbon Dioxide 13.0 L, Anion Gap 20 H, BUN15, Creatinine 0.68 L, Estim Creat Clear Calc 104.06, Est GFR (MDRD) Non-Af 123, BUN/Creatinine Ratio 21.8 H, Glucose 205 H, Calcium 8.3, Magnesium 2.0, TSH 3.740 11/27/24 17:09: POC Glucose 174 H 11/27/24 18:02: POC Glucose 155 H 11/27/24 19:02: POC Glucose 140 H 11/27/24 20:04: POC Glucose 126 H 11/27/24 20:10: Sodium 138, Potassium 3.4, Chloride 109 H, Carbon Dioxide 13.8 L, Anion Gap 15, BUN12, Creatinine 0.59 L, Estim Creat Clear Calc 119.94, Est GFR (MDRD) Non-Af 128, BUN/Creatinine Ratio 20.3 H, Glucose 162 H, Calcium 7.5 L 11/27/24 21:08: POC Glucose 139 H 11/27/24 21:58: POC Glucose 187 H 11/27/24 23:13: POC Glucose 214 H 11/27/24 23:59: POC Glucose 190 H 11/28/24 00:40: Sodium 139, Potassium 3.0 L, Chloride 110 H, Carbon Dioxide 16.5L, Anion Gap 12, BUN 9, Creatinine 0.52 L, Estim Creat Clear Calc 136.08, Est GFR (MDRD) Non-Af 131, BUN/Creatinine Ratio 17.4, Glucose 179 H, Calcium 7.3 L 11/28/24 01:07: POC Glucose 155 H 11/28/24 01:56: POC Glucose 126 H 11/28/24 02:00: b-Hydroxybutyric mmol/L 1.3 11/28/24 03:08: POC Glucose 120 H 11/28/24 03:55: WBC 12.4 H, RBC 3.98 L, Hgb 11.5 L, Hct 34.0 L, MCV 85.4, MCH 28.9, MCHC 33.8, RDW Std Deviation 39.4, RDW Coeff of Marilynn 12.7, Plt Count 296, MPV 8.7, Immature Gran % (Auto) 0.300, Neut % (Auto) 82.4 H, Lymph % (Auto) 10.4L, [place] % (Auto) 6.7, Eos % (Auto) 0.0, Baso % (Auto) 0.2, Absolute Neuts (auto)10.3 H, Absolute Lymphs (auto) 1.29, Nucleated RBC % 0, Sodium 138, Potassium 2.9 L, Chloride 108, Carbon Dioxide 15.6 L, Anion Gap 14, BUN 7, Creatinine 0.45L, Estim Creat Clear Calc 157.25, Est GFR (MDRD) Non-Af 136, BUN/Creatinine Ratio 16.4, Glucose 165 H, Hemoglobin A1c 12.4 H, Calcium 7.1 L, Magnesium 1.8, b-Hydroxybutyric mmol/L 2.9 11/28/24 03:58: POC Glucose 156 H 11/28/24 05:02: POC Glucose 144 H 11/28/24 05:58: POC Glucose 143 H 11/28/24 07:28: POC Glucose 134 H 11/28/24 08:10: POC Glucose 132 H 11/28/24 08:25: Sodium 135, Potassium 2.9 L, Chloride 106, Carbon Dioxide 19.1 L, Anion Gap 10, BUN5, Creatinine 0.46 L, Estim Creat Clear Calc 166.47, Est GFR(MDRD) Non-Af 135, BUN/Creatinine Ratio11.1, Glucose 156 H, Calcium 7.1 L 11/28/24 12:12: POC Glucose 129 H ABG: ABG 11/27/24 13:25 Specimen Type LUIS Sample Site Not entered VBG pH 7.29 L VBG pO2 80 H VBG HCO3 12 L VBG Total CO2 12 L VBG O2 Sat (Calc) 95 H VBG Base Excess -15 L POC Mix VBG pCO2 Pt Tmp 24.2 L O2 Delivery Device Not entered Radiography Diagnostic Testing: Radiology Impression Chest X-Ray 11/27/24 13:39 IMPRESSION: No acute cardiopulmonary process. Reading Location: [facility] D/C Instructions Discharge Diet: 2000 Calorie Control Diet DC O2, CPAP, BIPAP Needs Home O2 Discharge instructions: No Meaningful Use Info Meaningful Use Meaningful Use Diagnoses (Choose all that apply): None applicable Ischemic Stroke Statin Dosing Therapy Reference: STATIN DOSE THERAPY REFERENCE: * Patients > 75 years receive moderate or high dose statin therapy. * Patients 75 years or YOUNGER should receive HIGH intensity statin dose unless contraindicated. You will be required to document reason for non-treatment if statin daily dose does not meet guidelines. HIGH DOSE STATIN THERAPY DAILY Atorvastatin > than or = to 40 mg Rosuvastatin > than or = to 20 mg Amlodipine + Atorvastatin > than or = to 2.5/40 mg Ezetimibe + Simvastatin 10/80 mg Simvastatin 80mg Discharge Plan Admission Admit Date/Time: 11/27/24 15:42 Primary Reason for Your Visit: Diabetic ketoacidosis Attending Provider: Damien Villagran Primary Care Provider: Minnie Hodge Consulting Providers: Zaida Hoff Discharge Orders/Prescriptions Prescriptions: Continued albuterol sulfate [Ventolin HFA] 18 GM HFA aerosol inhaler 2 puff inhalation Q4H PRN (Reason: SHORTNES OF BREATH/WHEEZING) fluticasone propionate 50 mcg/actuation spray,suspension 2 spray INTRANASAL DAILY (DME) pen needle, diabetic [BD Ultra-Fine Opal Pen Needle] 32 gauge x 5/32 needle See Rx Instructions .ROUTE .MEDSUPPLY Qty: 120 5RF Rx Instructions: 4 times daily insulin lispro [Humalog KwikPen Insulin] 100 unit/mL Insulin Pen 15 unit subcut TIDAC Qty: 0 0RF insulin glargine [Basaglar KwikPen U-100 Insulin] 100 unit/mL (3 mL) insulin pen 20 unit subcut DAILY Qty: 15 1RF (DME) Ketone Urine Test Strip See Rx Instructions .ROUTE .MEDSUPPLY Qty: 50 1RF Rx Instructions: once/day Discontinued (DME) Dexcom G6 Sensor Device See Rx Instructions .Route Qty: 9 0RF Rx Instructions: 1 sensor q 10 days (DME) Dexcom G6 Transmitter Device See Rx Instructions .Route Qty: 1 0RF Rx Instructions: As directed Referrals / Follow Up: [facility] [Provider Group] - Within 1 Month Minnie Hodge [Primary Care Provider] - Within 2 Weeks Disposition Disposition (needs filled in before D/C Order can be placed): Home, Self Care Charges/Coding Visit Charges Inpatient E&M: 29224 Disch Hosp 11/28/24 1309 Cosigner Signature (if applicable): CC: Minnie Hodge; Dr. Damien Villagrna, DO~ Signed [facility]05-11-2025 [facility] Medical Records Department [address] [place] [address] Discharge Summary 11/28/24 1300 MR#: [id number] Acct: [id number] Name: KALIE DESIR Rep #: [id number] : 2000 24 From: Damien Villagran DO PCP: Minnie Hodge Status:ADM IN Location: ICU [id number] Providers Date of Admission: 11/27/24 Primary Care Physician: Minnie Hodge Reason For Visit: DKA Diagnosis Discharge Diagnosis (1) Diabetic ketoacidosis: Status: Resolved Code(s): E11.10 - Type 2 diabetes mellitus with ketoacidosis without coma Qualifiers: Diabetes mellitus type: type 1 Diabetes mellitus complication detail: without coma Q ualified Code(s): E10.10 - Type 1 diabetes mellitus with ketoacidosis without coma (2) Insulin dependent type 1 diabetes mellitus: Status: Inactive Code(s): E10.9 - Type 1 diabetes mellitus without complications Qualifiers: Diabetes mellitus complication status: with ketoacidosis Diabetes mellitus complication detail: without coma Qualified Code(s): E10.10 - Type 1 diabetes mellitus with ketoacidosis without coma Plan DKA in setting of chronic type 1 diabetes * a1c 12.4, up from 11 * gap closed x 3. Will resume glargine and prandial insulin. DC insulin gtt. Start diet * Patient states that she was gone be running out of insulin so she was trying to stretch her insulin out. Was to have insulin prescribed in few days but had since run out. Hypokalemia * replace Medications at Discharge Home Medications albuterol sulfate 90 mcg/actuation aerosol inhaler (Ventolin HFA) 2 puff inhalation Q4H PRN SHORTNES OF BREATH/WHEEZING 08/25/18 Ketone Urine Test (acetone (urine) test) #50 ea 11/05/21 fluticasone propionate 50 mcg/actuation nasal spray,suspension 2 spray intranasal DAILY NASAL CONGESTION 11/21/22 pen needle, diabetic 32 gauge x 5/32 (BD Ultra-Fine Opal Pen Needle) #120 ea 11/23/22 insulin lispro 100 unit/mL subcutaneous pen (Humalog KwikPen (U-100) Insulin) 15 unit (0.15 mL) subcut TIDAC type 1 DM #0 mL 05/14/24 insulin glargine 100 unit/mL (3 mL) subcutaneous pen (Basaglar KwikPen U-100 Insulin) 20 unit (0.2 mL) subcut DAILY type 1 DM #15 mL 11/28/24 Hospital Course Operations None Procedures None Summary of Care Provided Hospital Course: Patient presents with DKA. Patient was taking less insulin than she was really prescribed because she was running out and tried to stretch the insulin she had out. She states that she just needs insulin glargine for discharge does not need her mealtime insulin. Weight / BMI Weight Weight: 74 kg Body Mass Index (BMI) 32.8 ABG / Lab / Microbiology Data 11/28/24 03:55 11/28/24 08:25 Laboratory: Laboratory Results - last 24 hr 11/27/24 13:16: WBC 16.1 H, RBC 5.14, Hgb 14.9, Hct 44.4, MCV 86.4, MCH 29.0, MCHC 33.6, RDW Std Deviation 40.5, RDW Coeff of Marilynn 12.9, Plt Count 410, MPV 8.7, Immature Gran % (Auto) 0.400, Neut % (Auto) 91.3 H, Lymph % (Auto) 5.9 L, [place] % (Auto) 2.1, Eos % (Auto) 0.0, Baso % (Auto) 0.3, A bsolute Neuts (auto) 14.7 H, Absolute Lymphs (auto) 0.94, Nucleated RBC % 0, Sodium 136, Potassium 3.6, Chloride 97 L, Carbon Dioxide 11.2 L, Anion Gap 28 H, BUN 16, Creatinine 0.82, Estim Creat Clear Calc 87.69, Est GFR (MDRD) Non-Af 102, BUN/Creatinine Ratio 20.1 H, Glucose 335 H, Calcium 10.0, b-Hydroxybutyric mmol/L 5.8 11/27/24 14:25: Urine Color Yellow, Urine Clarity Clear, Urine pH 5.0, Ur Specific [place] 1.025, U rine Protein 30 H, Urine Glucose (UA) 1000 H, Urine Ketones 150 A*, Urine Occult Blood 10 H, Urine Nitrite Negative, Urine Bilirubin Negative, Urine Urobilinogen Normal, Ur Leukocyte Esterase Negative, Urine RBC 0 SEEN, Urine WBC 0 SEEN, Ur Squamous Epith Cells 0-5 SEEN, Urine Bacteria 0 SEEN, Hyaline Casts 0-5 SEEN, Urine Mucus 0 SEEN, Urine Test Negative 11/27/24 15:21: POC Glucose 199 H 11/27/24 15:58: POC Glucose 181 H 11/27/24 16:10: Sodium 138, Potassium 3.7, Chloride 106, Carbon Dioxide 13.0 L, Anion Gap 20 H, BUN 15, Creatinine 0.68 L, Estim Creat Clear Calc 104.06, Est GFR (MDRD) Non-Af 123, BUN/Creatinine Ratio 21.8 H, Glucose 205 H, Calcium 8.3, Magnesium 2.0, TSH 3.740 11/27/24 17:09: POC Glucose 174 H 11/27/24 18:02: POC Glucose 155 H 11/27/24 19:02: POC Glucose 140 H 11/27/24 20:04: POC Glucose 126 H 11/27/24 20:10: Sodium 138, Potassium 3.4, Chloride 109 H, Carbon Dioxide 13.8 L, Anion Gap 15, BUN 12, Creatinine 0.59 L, Estim Creat Clear Calc 119.94, Est GFR (MDRD) Non-Af 128, BUN/Creatinine Ratio 20.3 H, Glucose 162 H, Calcium 7.5 L 11/27/24 21:08: POC Glucose 139 H 11/27/24 21:58: POC Glucose 187 H 11/27/24 23:13: POC Glucose 214 H 11/27/24 23:59: POC Glucose 190 H 11/28/24 00:40: Sodium 139, Potassium 3.0 L, Chloride 110 H, Carbon Dioxide 16.5 L, Anion Gap 12, BUN 9, Creatinine 0.52 L, Estim Creat C (more content not included)...[facility]05-11-2025 Progress note [facility] Medical Records Department [address] [place] [address] Progress Note - Hospitalist 11/28/24 3220 MR#: [id number] Acct: [id number] Name: KALIE DESIR Rep #:[id number] : 2000 24 From: Damien Villagran DO PCP: Minnie Hodge Status:ADM I N Location: ICU [id number] 3-1 Reason for Visit Reason for Visit: Diagnoses Type 1 diabetes mellitus with ketoacidosis without coma (11/27/24) Subjective Subjective Feeling well. States that she has cut back on on marijuana. Objective Data Objective Data Vital Signs: Vital Signs Temp Pulse Resp BP Pulse Ox O2 Del Method 36.6 C 77 22 H 123/65 H 100 Room Air 11/28/24 06:00 11/28/24 07:00 11/28/24 07:00 11/28/24 07:00 11/28/24 07:00 11/28/24 07:00 Oxygen Delivery Method Room Air Weight: 74 kg Body Mass Index (BMI) 32.8 Intake & Output: Intake and Output for Last 24 Hours 11/26/24 11/27/24 11/28/24 23:59 23:59 23:59 Intake Total 5010.14 / 5014.14 2021 Balance 5010.14 / 5014.14 2021 Lab / Micro Data 11/28/24 03:55 11/28/24 08:25 Labs: Laboratory Results - last 24 hr 11/27/24 13:16: WBC 16.1 H, RBC 5.14, Hgb 14.9, Hct 44.4, MCV 86.4, MCH 29.0, MCHC 33.6, RDW Std Deviation 40.5, RDW Coeff of Marilynn 12.9, Plt Count 410, MPV 8.7, Immature Gran % (Auto) 0.400, Neut % (Auto) 91.3 H, Lymph % (Auto) 5.9 L, [place] % (Auto) 2.1, Eos % (Auto) 0.0, Baso % (Auto) 0.3, Absolute Neuts (auto) 14.7 H, Absolute Lymphs (auto) 0.94, Nucleated RBC % 0, Sodium 136, Potassium 3.6, Chloride 97 L, Carbon Dioxide 11.2 L, Anion Gap 28 H, BUN 16, Creatinine 0.82, Estim Creat Clear Calc 87.69, Est GFR (MDRD) Non-Af 102, BUN/Creatinine Ratio 20.1 H, Glucose 335 H, Calcium 10.0, b-Hydroxybutyric mmol/L 5.8 11/27/24 14:25: Urine Color Yellow, Urine Clarity Clear, Urine pH 5.0, Ur Specific [place] 1.025, Urine Protein 30 H, Urine Glucose (UA) 1000 H, Urine Ketones 150 A*, Urine Occult Blood 10 H, Urine Nitrite Negative, Urine BilirubinNegative, Urine Urobilinogen Normal, Ur Leukocyte Esterase Negative, Urine RBC 0SEEN, Urine WBC 0 SEEN, Ur Squamous Epith Cells 0-5 SEEN, Urine Bacteria 0 SEEN,Hyaline Casts 0-5 SEEN, Urine Mucus 0 SEEN, Urine Test Negative 11/27/24 15:21: POC Glucose 199 H 11/27/24 15:58: POC Glucose 181 H 11/27/24 16:10: Sodium 138, Potassium 3.7, Chloride 106, Carbon Dioxide 13.0 L, Anion Gap 20 H, BUN15, Creatinine 0.68 L, Estim Creat Clear Calc 104.06, Est GFR (MDRD) Non-Af 123, BUN/Creatinine Ratio 21.8 H, Glucose 205 H, Calcium 8.3, Magnesium 2.0, TSH 3.740 11/27/24 17:09: POC Glucose 174 H 11/27/24 18:02: POC Glucose 155 H 11/27/24 19:02: POC Glucose 140 H 11/27/24 20:04: POC Glucose 126 H 11/27/24 20:10: Sodium 138, Potassium 3.4, Chloride 109 H, Carbon Dioxide 13.8 L, Anion Gap 15, BUN12, Creatinine 0.59 L, Estim Creat Clear Calc 119.94, Est GFR (MDRD) Non-Af 128, BUN/Creatinine Ratio 20.3 H, Glucose 162 H, Calcium 7.5 L 11/27/24 21:08: POC Glucose 139 H 11/27/24 21:58: POC Glucose 187 H 11/27/24 23:13: POC Glucose 214 H 11/27/24 23:59: POC Glucose 190 H 11/28/24 00:40: Sodium 139, Potassium 3.0 L, Chloride 110 H, Carbon Dioxide 16.5L, Anion Gap 12, BUN 9, Creatinine 0.52 L, Estim Creat Clear Calc 136.08, Est GFR (MDRD) Non-Af 131, BUN/Creatinine Ratio 17.4, Glucose 179 H, Calcium 7.3 L 11/28/24 01:07: POC Glucose 155 H 11/28/24 01:56: POC Glucose 126 H 11/28/24 02:00: b-Hydroxybutyric mmol/L 1.3 11/28/24 03:08: POC Glucose 120 H 11/28/24 03:55: WBC 12.4 H, RBC 3.98 L, Hgb 11.5 L, Hct 34.0 L, MCV 85.4, MCH 28.9, MCHC 33.8, RDW Std Deviation 39.4, RDW Coeff of Marilynn 12.7, Plt Count 296, MPV 8.7, Immature Gran % (Auto) 0.300, Neut % (Auto) 82.4 H, Lymph % (Auto) 10.4L, [place] % (Auto) 6.7, Eos % (Auto) 0.0, Baso % (Auto) 0.2, Absolute Neuts (auto)10.3 H, Absolute Lymphs (auto) 1.29, Nucleated RBC % 0, Sodium 138, Potassium 2.9 L, Chloride 108, Carbon Dioxide 15.6 L, Anion Gap 14, BUN 7, Creatinine 0.45L, Estim Creat Clear Calc 157.25, Est GFR (MDRD) Non-Af 136, BUN/Creatinine Ratio 16.4, Glucose 165 H, Hemoglobin A1c 12.4 H, Calcium 7.1 L, Magnesium 1.8, b-Hydroxybutyric mmol/L 2.9 11/28/24 03:58: POC Glucose 156 H 11/28/24 05:02: POC Glucose 144 H 11/28/24 05:58: POC Glucose 143 H ABG Data ABG results: ABG 11/27/24 13:25 Specimen Type LUIS Sample Site Not entered VBG pH 7.29 L VBG pO2 80 H VBG HCO3 12 L VBG Total CO2 12 L VBG O2 Sat (Calc) 95 H VBG Base Excess -15 L POC Mix VBG pCO2 Pt Tmp 24.2 L O2 Delivery Device Not entered Radiography Diagnostic Testing: Radiology Impression Chest X-Ray 11/27/24 13:39 IMPRESSION: No acute cardiopulmonary process. Reading Location: [facility] Physical Exam Const alert and no apparent distress HEENT head/scalp atraumatic and moist oral mucous membranes Resp normal respiratory effort, no retractions, no use of accessory muscles and clearto auscultation bilaterally Assessment & Plan Assessment/Plan (1) Diabetic ketoacidosis: QUALIFIERS: Diabetes mellitus complication detail: without coma Diabetes mellitus type: type 1 Qualified Code(s): E10.10 - Type 1 diabetes mellitus with ketoacidosis without coma (2) Insulin dependent type 1 diabetes mellitus: QUALIFIERS: Diabetes mellitus complication detail: without coma Diabetes mellitus complication status: with ketoacidosis Qualified Code(s): E10.10 - Type 1 diabetes mellitus with ketoacidosis withoutcoma PLAN: Plan DKA in setting of chronic type 1 diabetes * a1c 12.4, up from 11 * gap closed x 3. Will resume glargine and prandial insulin. DC insulin gtt. Start diet * Patient states that she was gone be running out of insulin so she was trying to stretch her insulin out. Was to have insulin prescribed in few days but had since run out. Hypokalemia * replace 11/28/24 1252 Cosigner Signature (if applicable): CC: ~ Signed [facility]05-10-2025 History and physical note Author Zaida Hoff [facility] Note Date/Time November 27, 2024 4:03p m [facility] Medical Records Department [address] [place] [address] H&P Exam - Hospitalist 11/27/24 1542 MR#: [id number] Acct: [id number] Name: KALIE DSEIR Rep #:[id number] : 2000 24 From: Zaida Hoff MD PCP: Minnie Hodge Status:ADM I N Location: ICU CVICU20 4-1 HPI - General General Date of Admission: 11/27/24 Date of Service: 11/27/24 Chief Complaint: DKA HPI Narrative axel HENRIQUEZ a Patient is a 24-year-old female with history of type 1 diabetes, cannabis emesis syndrome, asthma who presented to [facility] ED with her significant other 11/27/2024 with nausea and vomiting. She was seen yesterday because of abdominal pain with nausea, vomiting, diarrhea butultimately was discharged home as there was ketones in urine but beta hydroxybutyrate did not flagged as abnormal. Patient reports that her symptoms and persisted now she is having diarrhea prompting her to come back to the ED. In the ED temperature 97.3, heart rate initially 127 with blood pressure 141/83,respiratory rate 16 pulse ox 100% on room air. White blood cell count of 16, and his blood gas with pH of 7.29, BMP demonstrated bicarb of 11.2 with anion gap of 28 and glucose of 335, urine ketones positive and beta hydroxybutyrate elevated at 5.8. Chest x-ray with no acute process. Patient diagnosed with DKAand given IV fluids and IV insulin her hospitalist contacted for admission to the ICU. Patient evaluated bedside and reports that starting at 3 AM yesterday she had diarrhea, nausea, vomiting, is getting hot flashes but has not had a temperature over 100 degrees, gets a little bit of a cough and runny nose when she vomits but nothing independent of that, reports she is still taking her insulin. Presently still having a little bit abdominal pain but mostly some burning and acid feeling in her chest, has not had diarrhea since this morning but has not gone to the bathroom since then, is still nauseous, has felt like she needed to take deep breaths but not overtly short of breath and only a little bit of a cough associated with her vomiting [facility] Medical History Obesity (BMI 30.0-34.9) Insulin dependent type 1 diabetes mellitus Tachycardia Diabetic ketoacidosis Hx of type 1 diabetes mellitus Non-compliance DKA (diabetic ketoacidosis) Type 1 diabetes mellitus with hyperglycemia Hypokalemia Hypophosphatemia Cannabis hyperemesis syndrome concurrent with and due to cannabis abuse DKA, type [address] History of marijuana use Anxiety and depression Insomnia Numbness and tingling Insulin pump titration Presence of insulin pump History of hepatitis A Asthma Diabetes type 1, controlled Home Medications ?Medication ?Instructions ?Recorded ?Last Taken ?Type albuterol sulfate 90 mcg/actuation 2 puff inhalation Q 4H PRN SHORTNES 08/25/18 03/02/23 History aerosol inhaler (Ventolin HFA) OF BREATH/WHEEZING Ketone Urine Test (acetone (urine) #50 ea 11/05/21 Unk nown Rx test) fluticasone propionate 50 2 spray intranasal DAILY YARA AL 11/21/22 02/12/23 History mcg/actuation nasal CONGESTION spray,suspension pen needle, diabetic 32 gauge x #120 ea 11/23/22 Unkno wn Rx (BD Ultra-Fine Opal Pen Needle) blood-glucose sensor (Dexcom G6 #9 ea 11/10/23 Unknown Rx Sensor device) blood-glucose transmitter (Dexcom #1 ea 11/10/23 Unkno wn Rx G6 Transmitter device) insulin lispro 100 unit/mL 15 unit (0.15 mL) subcut TI DAC #0 05/14/24 11/27/24 Rx subcutaneous pen (Humalog KwikPen mL (U-100) Insulin) insulin glargine 100 unit/mL (3 20 unit subcut DAILY 0 11/27/24 11/26/24 History mL) subcutaneous pen (Basaglar KwikPen U-100 Insulin) Allergy/AdvReac Type Severity Reaction Status Date / Time bee venom protein (honey Allergy Severe Anaphylaxis Verified 11/27/24 12:22 bee) (bee stings) Sulfa (Sulfonamide Allergy Unknown Verified 11/27/24 12:22 Antibiotics) prednisone AdvReac Vomiting Verified 11/27/24 12:22 Family History Grandmother Diabetes Sister Asthma Brother Asthma Mother Heart disease Surgical History History of placement of ear tubes Social History adopted: No household members: spouse housing: other details: mobile home number of children: 0 current occupational status: employed current occupation: [employer] pets and animals: Yes pets and animals: dog(s) and other details: python history of recent travel: Yes ([place]) out of state: Yes out of country: No sexually active: Yes Smoking Status: Current some day smoker tobacco type: pipe second hand exposure: Yes alcohol intake: never substance use type: marijuana and other details: Cannabis, last use ~ 1 month prior, ingested. well-balanced diet: about half the time caffeine: No eating out: 1-3 times/week during the past year weight has: other details: fluxuates 20 # what type of physical activity do you participate in: walking and weight training jose/sabianist: None seatbelt use: always do you feel safe at home: Yes additional social history: - Markie RIDLEY Narrative General: Intermittent hot flash feeling HENT: Denies headache, some nasal running when she vomits, denies sore throat EYES: Denies changes in vision Resp: Denies cough, does feel the need to take a big breath but no overt shortness of breath Cardiac: Denies chest pain GI: Some abdominal pain, nausea, diarrhea : Dark urine Extremity: Denies swelling MSK: Some generalized weakness Neuro: Denies any numbness/tingling Heme: Denies any bleeding or bruising Skin: Denies rashes Psychiatric: No complaints voiced Vital Signs Vital Signs Vital Signs: 11/27/24 12:23 11/27/24 13:22 11/27/24 14:00 Temperature 97.3 F L Temperature Source Temporal Pulse Rate 127 H 92 Respiratory Rate 16 12 Blood Pressure 141/83 H 157/87 H 136/67 H Blood Pressure Mean 102 110 90 Pulse Ox 100 100 99 Oxygen Delivery Method Room Air Room Air Room Air 11/27/24 15:00 11/27/24 15:34 Temperature 97.3 F L Temperature Source Pulse Rate 97 97 Respiratory Rate 19 H 19 H Blood Pressure 126/88 H 126/88 H Blood Pressure Mean 100 100 Pulse Ox 98 98 Oxygen Delivery Method Weight Weight: 65.317 kg Body Mass Index (BMI) 29.0 Physical Exam Narrative General: Alert, oriented HEENT: Atraumatic, normocephalic Eyes: Anicteric, normal conjunctiva, extraocular movements grossly intact Neck: Supple Respiratory: Clear to auscultation bilaterally, normal respiratory effort Cardiovascular: Regular rate and rhythm GI: Soft, little bit of diffuse tenderness Extremities: No edema Musculoskeletal: Moving all extremities Neuro: No overt focal neurological deficits Skin: No rashes appreciated Psych: Cooperative Results Lab / Micro Data 11/27/24 13:16 11/27/24 13:16 Labs: Laboratory Results - last 24 hr 11/27/24 13:16: WBC 16.1 H, RBC 5.14, Hgb 14.9, Hct 44.4, MCV 86.4, MCH 29.0, MCHC 33.6, RDW Std Deviation 40.5, RDW Coeff of Marilynn 12.9, Plt Count 410, MPV 8.7, Immature Gran % (Auto) 0.400, Neut % (Auto) 91.3 H, Lymph % (Auto) 5.9 L, [place] % (Auto) 2.1, Eos % (Auto) 0.0, Baso % (Auto) 0.3, Absolute Neuts (auto) 14.7 H, Absolute Lymphs (auto) 0.94, Nucleated RBC % 0, Sodium 136, Potassium 3.6, Chloride 97 L, Carbon Dioxide 11.2 L, Anion Gap 28 H, BUN 16, Creatinine 0.82, Estim Creat Clear Calc 87.69, Est GFR (MDRD) Non-Af 102, BUN/Creatinine Ratio 20.1 H, Glucose 335 H, Calcium 10.0, b-Hydroxybutyric mmol/L 5.8 11/27/24 14:25: Urine Color Yellow, Urine Clarity Clear, Urine pH 5.0, Ur Specific [place] 1.025, Urine Protein 30 H, Urine Glucose (UA) 1000 H, Urine Ketones 150 A*, Urine Occult Blood 10 H, Urine Nitrite Negative, Urine BilirubinNegative, Urine Urobilinogen Normal, Ur Leukocyte Esterase Negative, Urine RBC 0SEEN, Urine WBC 0 SEEN, Ur Squamous Epith Cells 0-5 SEEN, Urine Bacteria 0 SEEN,Hyaline Casts 0-5 SEEN, Urine Mucus 0 SEEN ABG Data ABG results: ABG 11/27/24 13:25 Specimen Type LUIS Sample Site Not entered VBG pH 7.29 L VBG pO2 80 H VBG HCO3 12 L VBG Total CO2 12 L VBG O2 Sat (Calc) 95 H VBG Base Excess -15 L POC Mix VBG pCO2 Pt Tmp 24.2 L O2 Delivery Device Not entered Imaging Radiology Impression Chest X-Ray 11/27/24 13:39 IMPRESSION: No acute cardiopulmonary process. Reading Location: [facility] Assessment & Plan Assessment/Plan (1) Diabetic ketoacidosis: QUALIFIERS: Diabetes mellitus type: type 1 Diabetes mellitus complication detail: without coma Qualified Code(s): E10.10 - Type 1 diabetes mellitus with ketoacidosis without coma (2) Insulin dependent type 1 diabetes mellitus: QUALIFIERS: Diabetes mellitus complication status: with ketoacidosis Diabetes mellitus complication detail: without coma Qualified Code(s): E10.10 - Type 1 diabetes mellitus with ketoacidosis without coma PLAN: Plan #DKA in setting of chronic type 1 diabetes -Serum glucose in ED 335, anion gap 28 -Urine ketones 150 -Serum beta hydroxybutyrate 5.8 -Admit to intensive care unit -N.p.o. -Insulin drip started -Aggressive fluid hydration -Glucose checks and DKA protocol -BMP every 4H -Replace electrolytes per protocol -I's and O's -A1c in the a.m. -When serum glucose is <250 mg/dl, change IV fluids to D5%1/2NS at 150 ml/hr andcontinue insulin drip as per nomogram # History of asthma - Albuterol as needed #DVT ppx: SCDs Zaida Hoff MD Time spent in the patient's overall evaluation, decision-making process, review of diagnostic data, adjustment of management, discussion with other providers, nursing and ancillary staff involved in patient's care documentation, 57 Minutes Charges/Coding Visit Charges Inpatient E&M: 15355 Init Hosp L2 11/27/24 1603 <Electronically signed by Zaida Hoff MD> Cosigner Signature (if applicable): CC: Minnie Hodge; Dr. Zaida Hoff MD~ Signed [facility] Work Phone: 1(215) 901-933705-10-2025 Discharge summary Author Ted Mcghee [facility] Note Date/Time November 27, 2024 2:41p [facility] Medical Records Department [address] [place] [address] Emergency Department Summary 11/27/24 MR#: [id number] Acct: [id number] Name: KALIE DESIR Rep #:[id number] : 2000 24 From: Ted Mcghee MD PCP: Minnie Hodge Status:REG E R Location: ED HPI History of Present Illness Chief Complaint: Hyperglycemia Detail of Chief Complaint: My diabetes Informant: patient and spouse/S.O. Onset/Context/Timing Onset: Yesterday (Was seen in the Emergency Department for hyperglycemia with ketosis. She was discharged to home.) Context: Sudden Onset Timing: Continuous Quality: High blood sugar, positive ketones, respiratory symptoms and nausea andvom Location: Generalized Current Severity: Severe Maximum Severity: Severe Worsened by: Possible upper respiratory infection Relieved by: Nothing Associated Symptoms Associated Symptoms: Patient does have history of cannabis hyperemesis syndrome, Narrative Narrative: Patient is a 24-year-old female who is brought in by significant other. She presents because of nausea and vomiting. She was seen yesterday because of abdominal pain with nausea vomit diarrhea. Note authored by Dr. Damien Trimble was reviewed. Patient's urine is positive for ketones however beta hydroxybutyrate was negative/normal Patient does report elevated temperature to 100 ?F. She does endorse nasal congestion with vomiting, cough is productive of colored sputum. Presently she complains of nausea. She has bilious emesis noted in the emesis bag. She denies shortness of breath. She denies black or maroon-colored stool. She states her urine output is decreased. She does endorse dark-colored urine without blood and denies dysuria or urgency. Prior similar symptoms: Yes Recent Illness/Hospitalization: Yes [facility] Medical History Obesity (BMI 30.0-34.9) Insulin dependent type 1 diabetes mellitus Tachycardia Diabetic ketoacidosis Hx of type 1 diabetes mellitus Non-compliance DKA (diabetic ketoacidosis) Type 1 diabetes mellitus with hyperglycemia Hypokalemia Hypophosphatemia Cannabis hyperemesis syndrome concurrent with and due to cannabis abuse DKA, type [address] History of marijuana use Anxiety and depression Insomnia Numbness and tingling Insulin pump titration Presence of insulin pump History of hepatitis A Asthma Diabetes type 1, controlled Home Medications ?Medication ?Instructions ?Recorded ?Last Taken ?Type albuterol sulfate 90 mcg/actuation 2 puff inhalation Q 4H PRN SHORTNES 08/25/18 03/02/23 History aerosol inhaler (Ventolin HFA) OF BREATH/WHEEZING Ketone Urine Test (acetone (urine) #50 ea 11/05/21 Unk nown Rx test) fluticasone propionate 50 2 spray intranasal DAILY YARA AL 11/21/22 02/12/23 History mcg/actuation nasal CONGESTION spray,suspension pen needle, diabetic 32 gauge x #120 ea 11/23/22 Unkno wn Rx (BD Ultra-Fine Opal Pen Needle) blood-glucose sensor (Dexcom G6 #9 ea 11/10/23 Unknown Rx Sensor device) blood-glucose transmitter (Dexcom #1 ea 11/10/23 Unkno wn Rx G6 Transmitter device) insulin lispro 100 unit/mL 15 unit (0.15 mL) subcut TI DAC #0 05/14/24 11/27/24 Rx subcutaneous pen (Humalog KwikPen mL (U-100) Insulin) insulin glargine 100 unit/mL (3 20 unit subcut DAILY 0 11/27/24 11/26/24 History mL) subcutaneous pen (Basaglar KwikPen U-100 Insulin) Allergy/AdvReac Type Severity Reaction Status Date / Time bee venom protein (honey Allergy Severe Anaphylaxis Verified 11/27/24 12:22 bee) (bee stings) Sulfa (Sulfonamide Allergy Unknown Verified 11/27/24 12:22 Antibiotics) prednisone AdvReac Vomiting Verified 11/27/24 12:22 Family History Grandmother Diabetes Sister Asthma Brother Asthma Mother Heart disease Surgical History History of placement of ear tubes Social History adopted: No household members: spouse housing: other details: mobile home number of children: 0 current occupational status: employed current occupation: [employer] pets and animals: Yes pets and animals: dog(s) and other details: python history of recent travel: Yes ([place]) out of state: Yes out of country: No sexually active: Yes Smoking Status: Current some day smoker tobacco type: pipe second hand exposure: Yes alcohol intake: never substance use type: marijuana and other details: Cannabis, last use ~ 1 month prior, ingested. well-balanced diet: about half the time caffeine: No eating out: 1-3 times/week during the past year weight has: other details: fluxuates 20 # what type of physical activity do you participate in: walking and weight training jose/sabianist: None seatbelt use: always do you feel safe at home: Yes additional social history: - Markie RIDLEY ED Constitutional Constitutional ED: Reports chills and fever(s); Denies sweats Eyes Eyes: Denies blurry vision, change in vision or diplopia ENT ENT ED: Denies ear pain, rhinorrhea or sore throat Cardiovascular Cardiovascular: Denies chest pain, orthopnea, palpitations or paroxysmal nocturnal dyspnea Respiratory/Chest Respiratory/Chest: Reports cough and sputum; Denies dyspnea, dyspnea on exertion, orthopnea or paroxysmal nocturnal dyspnea Gastrointestinal Gastrointestinal: Reports abdominal pain, nausea and vomiting; Denies constipation, diarrhea or melena Genitourinary Genitourinary ED: Denies dysuria, hematuria or urinary frequency Musculoskeletal Musculoskeletal: Denies arthralgias or myalgias Integumentary Denies rash Neurologic Neurologic: Reports weakness; Denies headache(s) or paresthesias Psychiatric Psychiatric: Denies anxiety or depression Endocrine Endocrinology: Denies cold intolerance or heat intolerance Hematologic/Lymphatic Hematologic/Lymphatic: Reports systems reviewed and no addt'l complaints, exceptas documented EXAM Physical Exam Const Vital Signs: 11/27/24 12:23 11/27/24 13:22 11/27/24 14:00 Temperature 97.3 F L Temperature Source Temporal Pulse Rate 127 H 92 Respiratory Rate 16 12 Blood Pressure 141/83 H 157/87 H 136/67 H Blood Pressure Mean 102 110 90 Pulse Ox 100 100 99 Oxygen Delivery Method Room Air Room Air Room Air Positive well nourished and well developed General Appearance ED: well developed; Negative for cyanotic, diaphoretic or pallor HEENT Reports moist mucous membranes HEENT Narrative: Head is atraumatic normocephalic. Ears are normal. Nares are patent. Posterior pharynx without erythema or exudate. Eyes PERRL and EOMs intact bilaterally General Eye ED: Negative for pale conjunctiva or scleral icterus Chest Wall inspection of chest normal and palpation of chest normal Resp normal respiratory effort and clear to auscultation bilaterally Cardio regular rhythm, S1 normal heart sound, S2 normal heart sound and no murmurs Rate: tachycardic GI non-distended and no masses; Negative for non-tender or hepatosplenomegaly Auscultation: hypoactive bowel sounds Palpation: soft Back/Spine no CVA tenderness Extremity normal to inspection General Extremety ED: Negative for edema or tenderness General Extremity: Negative for edema Neuro oriented x3, CN's II-XII intact bilaterally and no sensory deficits noted Sensorium / Orientation: alert Motor Exam: strength 5/5 throughout Psych mental status grossly normal Skin no rashes or lesions noted, no wounds and skin turgor normal General Skin Exam: elasticity normal; Negative for jaundice or pallor MDM MDM MDM Narrative Medical decision making narrative: With elevated blood sugar positive ketones in urine he to evaluate for DKA. DKAorder set was initiated. Because she has a cough did not have a chest x-ray yesterday a chest x-ray was ordered for today. She received 1 L of normal saline wide open. Her abdominal pain nausea vomiting may be due to cannabis hyperemesis syndrome. Other causes would be viral illness, DKA. History & Record Review Additional record(s) reviewed:: Prior ED visit and Prior labs Lab Data Attestation: I reviewed the patient's lab results. Lab results narrative: White count is elevated 16.1 thousand with 91% segs. Electrolyte panel is remarked for glucose of 335 with a CO2 of 11.2 and anion gap of 26. Beta hydroxybutyrate is elevated at 5.8. This is higher than yesterday. Yesterday is 1.8 which is above upper end of normal. Labs: Laboratory Results - last 24 hr 11/27/24 11/27/24 13:16 14:25 WBC 16.1 H RBC 5.14 Hgb 14.9 Hct 44.4 MCV 86.4 MCH 29.0 MCHC 33.6 RDW Std Deviation 40.5 RDW Coeff of Marilynn 12.9 Plt Count 410 MPV 8.7 Immature Gran % (Auto) 0.400 Neut % (Auto) 91.3 H Lymph % (Auto) 5.9 L [place] % (Auto) 2.1 Eos % (Auto) 0.0 Baso % (Auto) 0.3 Absolute Neuts (auto) 14.7 H Absolute Lymphs (auto) 0.94 Nucleated RBC % 0 Sodium 136 Potassium 3.6 Chloride 97 L Carbon Dioxide 11.2 L Anion Gap 28 H BUN 16 Creatinine 0.82 Estim Creat Clear Calc 87.69 Est GFR (MDRD) Non-Af 102 BUN/Creatinine Ratio 20.1 H Glucose 335 H Calcium 10.0 b-Hydroxybutyric mmol/L 5.8 Urine Color Yellow Urine Clarity Clear Urine pH 5.0 Ur Specific [place] 1.025 Urine Protein 30 H Urine Glucose (UA) 1000 H Urine Ketones 150 A* Urine Occult Blood 10 H Urine Nitrite Negative Urine Bilirubin Negative Urine Urobilinogen Normal Ur Leukocyte Esterase Negative ABG Data ABG results: ABG 11/27/24 13:25 Specimen Type LUIS Sample Site Not entered VBG pH 7.29 L VBG pO2 80 H VBG HCO3 12 L VBG Total CO2 12 L VBG O2 Sat (Calc) 95 H VBG Base Excess -15 L POC Mix VBG pCO2 Pt Tmp 24.2 L O2 Delivery Device Not entered Radiography Chest X-Ray - ED: 1 View, Read by ED Physician, Normal, Heart, Mediastinum, BonyStructures and No Acute Disease Diagnostic Testing: Clinical Impression(s) from Imaging Studies Chest X-Ray 11/27/24 13:39 IMPRESSION: No acute cardiopulmonary process. Reading Location: [facility] EKG Initial EKG: Attestation: I personally reviewed and interpreted this EKG as follows: Interpretation: Sinus Tachycardia (Rate is 123. NV interval is 130 ms. Cures duration 80 ms. QT duration 3 and 50 ms. Heber is normal. There is evidence of right atrial enlargement. There is also decreased anterior force. There is no peaked T waves to suggest hyperkalemia.) Management Discussion w/another healthcare provider: Hospitalist (Case was discussed with Dr. Zaida Hoff. Full admission to to ICU for DKA) Treatment and Re-Evaluation :: There is inform me at approximately 1322 the patient is complaining of nausea with vomiting. She is diabetic and may have gastroparesis she was treated with Reglan. This also has previously noted may be due to cannabis hyperemesis syndrome. Critical Care Time Critical Care Time: Yes Critical care time (excluding procedures): 30-74 minutes (36), Including time spent: (History, physical, documentation, review of prior records, independent rotation laboratory results and images), Discussing w/Patient &/or Family/Practice Specialist (Informed patient that she will be admitted to the ICU for DKA. Went overher labs), Discussing w/Consultants (Case discussed with Dr. Zaida Hoff. Fulladmission ICU) and Arranging Admission or Transfer Discharge Plan Triage Chief Complaint: Hyperglycemia Other Complaint: Nausea/Vomiting ED Provider: Ted Mcghee Dx/Rx/DC Orders Clinical Impression: Diabetic ketoacidosis associated with type 1 diabetes mellitus, Leukocytosis, Nausea & vomiting, Sinus tachycardia seen on pvc monitor Prescriptions: No Action (DME) Dexcom G6 Sensor Device See Rx Instructions .Route Qty: 9 0RF Rx Instructions: 1 sensor q 10 days (DME) Dexcom G6 Transmitter Device See Rx Instructions .Route Qty: 1 0RF Rx Instructions: As directed albuterol sulfate [Ventolin HFA] 18 GM HFA aerosol inhaler 2 puff inhalation Q4H PRN (Reason: SHORTNES OF BREATH/WHEEZING) fluticasone propionate 50 mcg/actuation spray,suspension 2 spray INTRANASAL DAILY (DME) pen needle, diabetic [BD Ultra-Fine Opal Pen Needle] 32 gauge x /32 needle See Rx Instructions .ROUTE .MEDSUPPLY Qty: 120 5RF Rx Instructions: 4 times daily insulin lispro [Humalog KwikPen Insulin] 100 unit/mL Insulin Pen 15 unit subcut TIDAC Qty: 0 0RF insulin glargine [Basaglar KwikPen U-100 Insulin] 100 unit/mL (3 mL) insulin pen 20 unit subcut DAILY (DME) Ketone Urine Test Strip See Rx Instructions .ROUTE .MEDSUPPLY Qty: 50 1RF Rx Instructions: once/day Primary Care Provider: Minnie Hodge Referrals: Minnie Hodge [Primary Care Provider] - Print Language: Portuguese Disposition Disposition: [facility] What to do if you have Problems For any increased pain, shortness of breath, bleeding, nausea or vomiting, chestpain, or any unexpected problems, contact your Primary Care Provider. Call [facility] ([phone]) or report to the closest Emergency Room. Call 911 if necessary. 11/27/24 1441 <Electronically signed by Ted Mcghee MD> Cosigner Signature (if applicable): CC: Minnie Hodge ~ Signed [facility] Work Phone: 1(680) 898-988405-10-2025 History and physical note [facility] Medical Records Department [address] [place] [address] H&P Exam - Hospitalist 11/27/24 1542 MR#: [id number] Acct: [id number] Name: KALIE DESIR Rep #:[id number] : 2000 24 From: Zaida Hoff MD PCP: Minnie Hodge Status:ADM I N Location: ICU CVICU20 4-1 HPI - General General Date of Admission: 11/27/24 Date of Service: 11/27/24 Chief Complaint: DKA HPI Narrative KALIE DESIR, is a Patient is a 24-year-old female with history of type 1 diabetes, cannabis emesis syndrome, asthma who presented to [facility] ED with her significant other 11/27/2024 with nausea and vomiting. She was seen yesterday because of abdominal pain with nausea, vomiting,diarrhea butultimately was discharged home as there was ketones in urine but beta hydroxybutyrate did not flagged as abnormal. Patient reports that her symptoms and persisted now she is having diarrhea prompting her to come back to the ED. In the ED temperature 97.3, heart rate initially 127 with blood pressure 141/83,respiratory rate 16 pulse ox 100% on room air. White blood cell count of 16, and his blood gas with pH of 7.29, BMP demonstrated bicarb of 11.2 with anion gap of 28 and glucose of335, urine ketones positive and beta hydroxybutyrate elevated at 5.8. Chest x-ray with no acute process. Patient diagnosed with DKAand given IV fluids and IV insulin her hospitalist contacted for admission to the ICU. Patient evaluated bedside and reports that starting at 3 AM yesterday she had diarrhea, nausea, vomiting, is getting hot flashes but has not had a temperature over 100 degrees, getsa little bit of a cough and runny nose when she vomits but nothing independent of that, reports sheis still taking her insulin. Presently still having a little bit abdominal pain but mostly some burning and acid feeling in her chest, has not had diarrhea since this morning but has not gone to the bathroom since then, is still nauseous, has felt like she needed to take deep breaths but not overtly short of breath and only a little bit of a cough associated with her vomiting [facility] Medical History Obesity (BMI 30.0-34.9) Insulin dependent type 1 diabetes mellitus Tachycardia Diabetic ketoacidosis Hx of type 1 diabetes mellitus Non-compliance DKA (diabetic ketoacidosis) Type 1 diabetes mellitus with hyperglycemia Hypokalemia Hypophosphatemia Cannabis hyperemesis syndrome concurrent with and due to cannabis abuse DKA, type [address] History of marijuana use Anxiety and depression Insomnia Numbness and tingling Insulin pump titration Presence of insulin pump History of hepatitis A Asthma Diabetes type 1, controlled Home Medications ?Medication ?Instructions ?Recorded ?Last Taken ?Type albuterol sulfate 90 mcg/actuation 2 puff inhalation Q 4H PRN SHORTNES 08/25/18 03/02/23 History aerosol inhaler (Ventolin HFA) OF BREATH/WHEEZING Ketone Urine Test (acetone (urine) #50 ea 11/05/21 Unk nown Rx test) fluticasone propionate 50 2 spray intranasal DAILY YARA AL 11/21/22 02/12/23 History mcg/actuation nasal CONGESTION spray,suspension pen needle, diabetic 32 gauge x #120 ea 11/23/22 Unkno wn Rx 32 (BD Ultra-Fine Opal Pen Needle) blood-glucose sensor (Dexcom G6 #9 ea 11/10/23 Unknown Rx Sensor device) blood-glucose transmitter (Dexcom #1 ea 11/10/23 Unkno wn Rx G6 Transmitter device) insulin lispro 100 unit/mL 15 unit (0.15 mL) subcut TI DAC #0 05/14/24 11/27/24 Rx subcutaneous pen (Humalog KwikPen mL (U-100) Insulin) insulin glargine 100 unit/mL (3 20 unit subcut DAILY 0 11/27/24 11/26/24 History mL) subcutaneous pen (Basaglar KwikPen U-100 Insulin) Allergy/AdvReac Type Severity Reaction Status Date / Time bee venom protein (honey Allergy Severe Anaphylaxis Verified 11/27/24 12:22 bee) (bee stings) Sulfa (Sulfonamide Allergy Unknown Verified 11/27/24 12:22 Antibiotics) prednisone AdvReac Vomiting Verified 11/27/24 12:22 Family History Grandmother Diabetes Sister Asthma Brother Asthma Mother Heart disease Surgical History History of placement of ear tubes Social History adopted: No household members: spouse housing: other details: mobile home number of children: 0 current occupational status: employed current occupation: [employer] pets and animals: Yes pets and animals: dog(s) and other details: python history of recent travel: Yes ([place]) out of state: Yes out of country: No sexually active: Yes Smoking Status: Current some day smoker tobacco type: pipe second hand exposure: Yes alcohol intake: never substance use type: marijuana and other details: Cannabis, last use ~ 1 month prior, ingested. well-balanced diet: about half the time caffeine: No eating out: 1-3 times/week during the past year weight has: other details: fluxuates 20 # what type of physical activity do you participate in: walking and weight training jose/sabianist: None seatbelt use: always do you feel safe at home: Yes additional social history: - Markie RIDLEY Narrative General: Intermittent hot flash feeling HENT: Denies headache, some nasal running when she vomits, denies sore throat EYES: Denies changes in vision Resp: Denies cough, does feel the need to take a big breath but no overt shortness of breath Cardiac: Denies chest pain GI: Some abdominal pain, nausea, diarrhea : Dark urine Extremity: Denies swelling MSK: Some generalized weakness Neuro: Denies any numbness/tingling Heme: Denies any bleeding or bruising Skin: Denies rashes Psychiatric: No complaints voiced Vital Signs Vital Signs Vital Signs: 11/27/24 12:23 11/27/24 13:22 11/27/24 14:00 Temperature 97.3 F L Temperature Source Temporal Pulse Rate 127 H 92 Respiratory Rate 16 12 Blood Pressure 141/83 H 157/87 H 136/67 H Blood Pressure Mean 102 110 90 Pulse Ox 100 100 99 Oxygen Delivery Method Room Air Room Air Room Air 11/27/24 15:00 11/27/24 15:34 Temperature 97.3 F L Temperature Source Pulse Rate 97 97 Respiratory Rate 19 H 19 H Blood Pressure 126/88 H 126/88 H Blood Pressure Mean 100 100 Pulse Ox 98 98 Oxygen Delivery Method Weight Weight: 65.317 kg Body Mass Index (BMI) 29.0 Physical Exam Narrative General: Alert, oriented HEENT: Atraumatic, normocephalic Eyes: Anicteric, normal conjunctiva, extraocular movements grossly intact Neck: Supple Respiratory: Clear to auscultation bilaterally, normal respiratory effort Cardiovascular: Regular rate and rhythm GI: Soft, little bit of diffuse tenderness Extremities: No edema Musculoskeletal: Moving all extremities Neuro: No overt focal neurological deficits Skin: No rashes appreciated Psych: Cooperative Results Lab / Micro Data 11/27/24 13:16 11/27/24 13:16 Labs: Laboratory Results - last 24 hr 11/27/24 13:16: WBC 16.1 H, RBC 5.14, Hgb 14.9, Hct 44.4, MCV 86.4, MCH 29.0, MCHC 33.6, RDW Std Deviation 40.5, RDW Coeff of Marilynn 12.9, Plt Count 410, MPV 8.7, Immature Gran % (Auto) 0.400, Neut % (Auto) 91.3 H, Lymph % (Auto) 5.9 L, [place] % (Auto) 2.1, Eos % (Auto) 0.0, Baso % (Auto) 0.3, Absolute Neuts (auto) 14.7 H, Absolute Lymphs (auto) 0.94, Nucleated RBC % 0, Sodium 136, Potassium 3.6, Chloride 97 L, Carbon Dioxide 11.2 L, Anion Gap 28 H, BUN 16, Creatinine 0.82, Estim Creat Clear Calc 87.69, Est GFR (MDRD) Non-Af 102, BUN/Creatinine Ratio 20.1 H, Glucose 335 H, Calcium 10.0, b-Hydroxybutyric mmol/L 5.8 11/27/24 14:25: Urine Color Yellow, Urine Clarity Clear, Urine pH 5.0, Ur Specific [place] 1.025, Urine Protein 30 H, Urine Glucose (UA) 1000 H, Urine Ketones 150 A*, Urine Occult Blood 10 H, Urine Nitrite Negative, Urine BilirubinNegative, Urine Urobilinogen Normal, Ur Leukocyte Esterase Negative, Urine RBC 0SEEN, Urine WBC 0 SEEN, Ur Squamous Epith Cells 0-5 SEEN, Urine Bacteria 0 SEEN,Hyaline Casts 0-5 SEEN, Urine Mucus 0 SEEN ABG Data ABG results: ABG 11/27/24 13:25 Specimen Type LUIS Sample Site Not entered VBG pH 7.29 L VBG pO2 80 H VBG HCO3 12 L VBG Total CO2 12 L VBG O2 Sat (Calc) 95 H VBG Base Excess -15 L POC Mix VBG pCO2 Pt Tmp 24.2 L O2 Delivery Device Not entered Imaging Radiology Impression Chest X-Ray 11/27/24 13:39 IMPRESSION: No acute cardiopulmonary process. Reading Location: [id number] Assessment & Plan Assessment/Plan (1) Diabetic ketoacidosis: QUALIFIERS: Diabetes mellitus type: type 1 Diabetes mellitus complication detail: without coma Qualified Code(s): E10.10 - Type 1 diabetes mellitus with ketoacidosis without coma (2) Insulin dependent type 1 diabetes mellitus: QUALIFIERS: Diabetes mellitus complication status: with ketoacidosis Diabetes mellitus complicationdetail: without coma Qualified Code(s): E10.10 - Type 1 diabetes mellitus with ketoacidosis withoutcoma PLAN: Plan #DKA in setting of chronic type 1 diabetes -Serum glucose in ED 335, anion gap 28 -Urine ketones 150 -Serum beta hydroxybutyrate 5.8 -Admit to intensive care unit -N.p.o. -Insulin drip started -Aggressive fluid hydration -Glucose checks and DKA protocol -BMP every 4H -Replace electrolytes per protocol -I's and O's -A1c in the a.m. -When serum glucose is <250 mg/dl, change IV fluids to D5%1/2NS at 150 ml/hr andcontinue insulindrip as per nomogram # History of asthma - Albuterol as needed #DVT ppx: SCDs Zaida Hoff MD Time spent in the patient's overall evaluation, decision-making process, review of diagnostic data,adjustment of management, discussion with other providers, nursing and ancillary staff involved in patient's care documentation, 57 Minutes Charges/Coding Visit Charges Inpatient E&M: 36087 Init Hosp L2 11/27/24 1603 Cosigner Signature (if applicable): CC: Minnie Hodge; Dr. Zaida Hoff MD~ Signed [facility]05-10-2025 Discharge summary [facility] Medical Records Department [address] [place] [address] Emergency Department Summary 11/27/24 MR#: [id number] Acct: [id number] Name: KALIE DESIR Rep #:[id number] : 2000 24 From: Ted Mcghee MD PCP: Minnie Hodge Status:REG E R Location: ED HPI History of Present Illness Chief Complaint: Hyperglycemia Detail of Chief Complaint: My diabetes Informant: patient and spouse/S.O. Onset/Context/Timing Onset: Yesterday (Was seen in the Emergency Department for hyperglycemia with ketosis. She was discharged to home.) Context: Sudden Onset Timing: Continuous Quality: High blood sugar, positive ketones, respiratory symptoms and nausea andvom Location: Generalized Current Severity: Severe Maximum Severity: Severe Worsened by: Possible upper respiratory infection Relieved by: Nothing Associated Symptoms Associated Symptoms: Patient does have history of cannabis hyperemesis syndrome, Narrative Narrative: Patient is a 24-year-old female who is brought in by significant other. She presents because of nausea and vomiting. She was seen yesterday because of abdominal pain with nausea vomit diarrhea. Note authored by Dr. Damien Trimble was reviewed. Patient's urine is positive for ketones however beta hyd roxybutyrate was negative/normal Patient does report elevated temperature to 100 ?F. She does endorse nasal congestion with vomiting, cough is productive of colored sputum. Presently she complains of nausea. She has bilious emesis noted in the emesis bag. She denies shortness of breath. She denies black or maroon-colored stool. She states her urine output is decreased. She does endorse dark-colored urine without blood and deniesdysuria or urgency. Prior similar symptoms: Yes Recent Illness/Hospitalization: Yes [facility] Medical History Obesity (BMI 30.0-34.9) Insulin dependent type 1 diabetes mellitus Tachycardia Diabetic ketoacidosis Hx of type 1 diabetes mellitus Non-compliance DKA (diabetic ketoacidosis) Type 1 diabetes mellitus with hyperglycemia Hypokalemia Hypophosphatemia Cannabis hyperemesis syndrome concurrent with and due to cannabis abuse DKA, type [address] History of marijuana use Anxiety and depression Insomnia Numbness and tingling Insulin pump titration Presence of insulin pump History of hepatitis A Asthma Diabetes type 1, controlled Home Medications ?Medication ?Instructions ?Recorded ?Last Taken ?Type albuterol sulfate 90 mcg/actuation 2 puff inhalation Q 4H PRN SHORTNES 08/25/18 03/02/23 History aerosol inhaler (Ventolin HFA) OF BREATH/WHEEZING Ketone Urine Test (acetone (urine) #50 ea 11/05/21 Unk nown Rx test) fluticasone propionate 50 2 spray intranasal DAILY YARA AL 11/21/22 02/12/23 History mcg/actuation nasal CONGESTION spray,suspension pen needle, diabetic 32 gauge x #120 ea 11/23/22 Unkno wn Rx (BD Ultra-Fine Opal Pen Needle) blood-glucose sensor (Dexcom G6 #9 ea 11/10/23 Unknown Rx Sensor device) blood-glucose transmitter (Dexcom #1 ea 11/10/23 Unkno wn Rx G6 Transmitter device) insulin lispro 100 unit/mL 15 unit (0.15 mL) subcut TI DAC #0 05/14/24 11/27/24 Rx subcutaneous pen (Humalog KwikPen mL (U-100) Insulin) insulin glargine 100 unit/mL (3 20 unit subcut DAILY 0 11/27/24 11/26/24 History mL) subcutaneous pen (Basaglar KwikPen U-100 Insulin) Allergy/AdvReac Type Severity Reaction Status Date / Time bee venom protein (honey Allergy Severe Anaphylaxis Verified 11/27/24 12:22 bee) (bee stings) Sulfa (Sulfonamide Allergy Unknown Verified 11/27/24 12:22 Antibiotics) prednisone AdvReac Vomiting Verified 11/27/24 12:22 Family History Grandmother Diabetes Sister Asthma Brother Asthma Mother Heart disease Surgical History History of placement of ear tubes Social History adopted: No household members: spouse housing: other details: mobile home number of children: 0 current occupational status: employed current occupation: [employer] pets and animals: Yes pets and animals: dog(s) and other details: python history of recent travel: Yes ([place]) out of state: Yes out of country: No sexually active: Yes Smoking Status: Current some day smoker tobacco type: pipe second hand exposure: Yes alcohol intake: never substance use type: marijuana and other details: Cannabis, last use ~ 1 month prior, ingested. well-balanced diet: about half the time caffeine: No eating out: 1-3 times/week during the past year weight has: other details: fluxuates 20 # what type of physical activity do you participate in: walking and weight training jose/sabianist: None seatbelt use: always do you feel safe at home: Yes additional social history: - Markie RIDLEY [facility] ED Constitutional Constitutional ED: Reports chills and fever(s); Denies sweats Eyes Eyes: Denies blurry vision, change in vision or diplopia ENT ENT ED: Denies ear pain, rhinorrhea or sore throat Cardiovascular Cardiovascular: Denies chest pain, orthopnea, palpitations or paroxysmal nocturnal dyspnea Respiratory/Chest Respiratory/Chest: Reports cough and sputum; Denies dyspnea, dyspnea on exertion, orthopnea or paroxysmal nocturnal dyspnea Gastrointestinal Gastrointestinal: Reports abdominal pain, nausea and vomiting; Denies constipation, diarrhea or melena Genitourinary Genitourinary ED: Denies dysuria, hematuria or urinary frequency Musculoskeletal Musculoskeletal: Denies arthralgias or myalgias Integumentary Denies rash Neurologic Neurologic: Reports weakness; Denies headache(s) or paresthesias Psychiatric Psychiatric: Denies anxiety or depression Endocrine Endocrinology: Denies cold intolerance or heat intolerance Hematologic/Lymphatic Hematologic/Lymphatic: Reports systems reviewed and no addt'l complaints, exceptas documented EXAM Physical Exam Const Vital Signs: 11/27/24 12:23 11/27/24 13:22 11/27/24 14:00 Temperature 97.3 F L Temperature Source Temporal Pulse Rate 127 H 92 Respiratory Rate 16 12 Blood Pressure 141/83 H 157/87 H 136/67 H Blood Pressure Mean 102 110 90 Pulse Ox 100 100 99 Oxygen Delivery Method Room Air Room Air Room Air Positive well nourished and well developed General Appearance ED: well developed; Negative for cyanotic, diaphoretic or pallor HEENT Reports moist mucous membranes HEENT Narrative: Head is atraumatic normocephalic. Ears are normal. Nares are patent. Posterior pharynx without erythema or exudate. Eyes PERRL and EOMs intact bilaterally General Eye ED: Negative for pale conjunctiva or scleral icterus Chest Wall inspection of chest normal and palpation of chest normal Resp normal respiratory effort and clear to auscultation bilaterally Cardio regular rhythm, S1 normal heart sound, S2 normal heart sound and no murmurs Rate: tachycardic GI non-distended and no masses; Negative for non-tender or hepatosplenomegaly Auscultation: hypoactive bowel sounds Palpation: soft Back/Spine no CVA tenderness Extremity normal to inspection General Extremety ED: Negative for edema or tenderness General Extremity: Negative for edema Neuro oriented x3, CN's II-XII intact bilaterally and no sensory deficits noted Sensorium / Orientation: alert Motor Exam: strength 5/5 throughout Psych mental status grossly normal Skin no rashes or lesions noted, no wounds and skin turgor normal General Skin Exam: elasticity normal; Negative for jaundice or pallor MDM MDM MDM Narrative Medical decision making narrative: With elevated blood sugar positive ketones in urine he to evaluate for DKA. DKAorder set was initiated. Because she has a cough did not have a chest x-ray yesterday a chest x-ray was ordered for today. She received 1 L of normal saline wide open. Her abdominal pain nausea vomiting may be due to cannabis hyperemesis syndrome. Other causes would be viral illness, DKA. History & Record Review Additional record(s) reviewed:: Prior ED visit and Prior labs Lab Data Attestation: I reviewed the patient's lab results. Lab results narrative: White count is elevated 16.1 thousand with 91% segs. Electrolyte panel is remarked for glucose of 335 with a CO2 of 11.2 and anion gap of 26. Beta hydroxybutyrate is elevated at 5.8. This is higher than yesterday. Yesterday is 1.8 which is above upper end of normal. Labs: Laboratory Results - last 24 hr 11/27/24 11/27/24 13:16 14:25 WBC 16.1 H RBC 5.14 Hgb 14.9 Hct 44.4 MCV 86.4 MCH 29.0 MCHC 33.6 RDW Std Deviation 40.5 RDW Coeff of Marilynn 12.9 Plt Count 410 MPV 8.7 Immature Gran % (Auto) 0.400 Neut % (Auto) 91.3 H Lymph % (Auto) 5.9 L [place] % (Auto) 2.1 Eos % (Auto) 0.0 Baso % (Auto) 0.3 Absolute Neuts (auto) 14.7 H Absolute Lymphs (auto) 0.94 Nucleated RBC % 0 Sodium 136 Potassium 3.6 Chloride 97 L Carbon Dioxide 11.2 L Anion Gap 28 H BUN 16 Creatinine 0.82 Estim Creat Clear Calc 87.69 Est GFR (MDRD) Non-Af 102 BUN/Creatinine Ratio 20.1 H Glucose 335 H Calcium 10.0 b-Hydroxybutyric mmol/L 5.8 Urine Color Yellow Urine Clarity Clear Urine pH 5.0 Ur Specific [place] 1.025 Urine Protein 30 H Urine Glucose (UA) 1000 H Urine Ketones 150 A* Urine Occult Blood 10 H Urine Nitrite Negative Urine Bilirubin Negative Urine Urobilinogen Normal Ur Leukocyte Esterase Negative ABG Data ABG results: ABG 11/27/24 13:25 Specimen Type LUIS Sample Site Not entered VBG pH 7.29 L VBG pO2 80 H VBG HCO3 12 L VBG Total CO2 12 L VBG O2 Sat (Calc) 95 H VBG Base Excess -15 L POC Mix VBG pCO2 Pt Tmp 24.2 L O2 Delivery Device Not entered Radiography Chest X-Ray - ED: 1 View, Read by ED Physician, Normal, Heart, Mediastinum, BonyStructures and No Acute Disease Diagnostic Testing: Clinical Impression(s) from Imaging Studies Chest X-Ray 11/27/24 13:39 IMPRESSION: No acute cardiopulmonary process. Reading Location: [facility] EKG Initial EKG: Attestation: I personally reviewed and interpreted this EKG as follows: Interpretation: Sinus Tachycardia (Rate is 123. NV interval is 130 ms. Cures duration 80 ms. QT duration 3 and 50 ms. Heber is normal. There is evidence of right atrial enlargement. There is also decreased anterior force. There is no peaked T waves to suggest hyperkalemia.) Management Discussion w/another healthcare provider: Hospitalist (Case was discussed with Dr. Zaida Hoff. Full admission to to ICU for DKA) Treatment and Re-Evaluation :: There is inform me at approximately 1322 the patient is complaining of nausea with vomiting. She isdiabetic and may have gastroparesis she was treated with Reglan. This also has previously noted maybe due to cannabis hyperemesis syndrome. Critical Care Time Critical Care Time: Yes Critical care time (excluding procedures): 30-74 minutes (36), Including time spent: (History, physical, documentation, review of prior records, independent rotation laboratory results and images), Discussing w/Patient &/or Family/Practice Specialist (Informed patient that she will be admitted to the ICU for DKA. Went overher labs), Discussing w/Consultants (Case discussed with Dr. Zaida Hoff. Fulladmission ICU) and Arranging Admission or Transfer Discharge Plan Triage Chief Complaint: Hyperglycemia Other Complaint: Nausea/Vomiting ED Provider: Tde Mcghee Dx/Rx/DC Orders Clinical Impression: Diabetic ketoacidosis associated with type 1 diabetes mellitus, Leukocytosis, Nausea & vomiting, Sinus tachycardia seen on pvc monitor Prescriptions: No Action (DME) Dexcom G6 Sensor Device See Rx Instructions .Route Qty: 9 0RF Rx Instructions: 1 sensor q 10 days (DME) Dexcom G6 Transmitter Device See Rx Instructions .Route Qty: 1 0RF Rx Instructions: As directed albuterol sulfate [Ventolin HFA] 18 GM HFA aerosol inhaler 2 puff inhalation Q4H PRN (Reason: SHORTNES OF BREATH/WHEEZING) fluticasone propionate 50 mcg/actuation spray,suspension 2 spray INTRANASAL DAILY (DME) pen needle, diabetic [BD Ultra-Fine Opal Pen Needle] 32 gauge x 5/32 needle See Rx Instructions .ROUTE .MEDSUPPLY Qty: 120 5RF Rx Instructions: 4 times daily insulin lispro [Humalog KwikPen Insulin] 100 unit/mL Insulin Pen 15 unit subcut TIDAC Qty: 0 0RF insulin glargine [Basaglar KwikPen U-100 Insulin] 100 unit/mL (3 mL) insulin pen 20 unit subcut DAILY (DME) Ketone Urine Test Strip See Rx Instructions .ROUTE .MEDSUPPLY Qty: 50 1RF Rx Instructions: once/day Primary Care Provider: Minnie Hodge Referrals: Minnie Hodge [Primary Care Provider] - Print Language: Portuguese Disposition Disposition: Acute Care Hospital [facility] What to do if you have Problems For any increased pain, shortness of breath, bleeding, nausea or vomiting, chestpain, or any unexpected problems, contact your Primary Care Provider. Call [facility] ([phone]) or report tothe closest Emergency Room. Call 911 if necessary. 11/27/24 1441 Cosigner Signature (if applicable): CC: Minnie Hodge ~ Signed [facility]05-10-2025 Radiology Diagnostic study note [facility] Imaging Services [address] [place] [address] Chest PA and Lateral MR#: [id number] Acct: [id number] Name: KALIE DESIR Rep #: [id number] : 2000 F 24 From: Kait Sheldon MD PCP: Minnie Hodge Status: REG E R Study:Chest PA and Lateral Date of Exam: 11/27/24 Exam# [id number] Ordering Dr: Shreya Mcghee MD EXAM: XR Chest, 2 Views CLINICAL INDICATION: PRODUCTIVE COUGH TECHNIQUE: Frontal and lateral views of the chest. COMPARISON: No relevant prior studies available. FINDINGS: LUNGS AND PLEURAL SPACES: Unremarkable. No consolidation. No pneumothorax. HEART: Unremarkable. No cardiomegaly. MEDIASTINUM: Unremarkable. Normal mediastinal contour. BONES/JOINTS: Unremarkable. No acute fracture. RAD/Chest PA and Lateral IMPRESSION: No acute cardiopulmonary process. Reading Location: [id number] CC: Minnie Hodge; Dr. Ted Mcghee MD ~ Timekeeper: Signed [facility]04-17-2025 Telephone encounter Note* Telephone Encounter - Kaylen Shaffer MA - 11/04/2024 2:39 PM EDT Images from the original note were not included. Most recent Endocrinology visit: Last encounter Visit on 02/04/2024 (with Veronika Dorado) 02/04/2024 in [facility] with VERONIKA DORADO for Type 1 diabetes mellitus without complication (HCC) No future appt scheduled in ENDO. Please route to local appt/scheduling pool if appt is needed? Requested Prescriptions Pending Prescriptions Disp Refills insulin glargine (BASAGLAR KWIKPEN U-100 INSULIN) 100 unit/mL (3 mL) 18 mL 3 Sig: Inject 20 units daily Latest Ref Rng & Units 12/24/2023 08/03/2020 03/01/2019 Hemoglobin A1C Hemoglobin A1C 4.3 - 5.6 % 10.1 11.6 Hemoglobin A1C (POCT) 4.2 - 5.6 % 12.9 TSH: None on file in the last 12 months Free T3: None on file in the last 12 months Free T4: None on file in the last 12 months Thyroglobulin: None on file in the last 12 months Vitamin D: None on file in the last 12 months Latest Ref Rng & Units 12/24/2023 09/18/2015 05/10/2015 Hematocrit Hematocrit 36.0 - 46.0 % 42.5 39.6 41.3 Latest Ref Rng & Units 12/24/2023 07/24/2020 03/01/2019 Creatinine Creatinine 0.58 - 0.96 mg/dL 0.54 0.42 0.35 Latest Ref Rng & Units 12/24/2023 07/24/2020 03/01/2019 eGFR EGFR >=60 mL/min/1.73m 131 EGFR-All Other Races . >60 >60 EGFR- >60 >60 Latest Ref Rng & Units 12/24/2023 07/24/2020 03/01/2019 Potassium Potassium 3.7 - 5.1 mmol/L 4.8 3.3 4.5 Testosterone: None on file in the last 12 months IGF: None on file in the last 12 months Prolactin: None on file in the last 12 months [facility]04-17-2025 Miscellaneous Notes* Telephone Encounter - Kaylen Shaffer MA - 11/04/2024 2:39 PM EDT Images from the original note were not included. Most recent Endocrinology visit: Last encounter Visit on 02/04/2024 (with Veronika Dorado) 02/04/2024 [facility] with VERONIKA DORADO for Type 1 diabetes mellitus without complication (HCC) No future appt scheduled in ENDO. Please route to local appt/scheduling pool if appt is needed? Requested Prescriptions Pending Prescriptions Disp Refills insulin glargine (BASAGLAR KWIKPEN U-100 INSULIN) 100 unit/mL (3 mL) 18 mL 3 Sig: Inject 20 units daily Latest Ref Rng & Units 12/24/2023 08/03/2020 03/01/2019 Hemoglobin A1C Hemoglobin A1C 4.3 - 5.6 % 10.1 11.6 Hemoglobin A1C (POCT) 4.2 - 5.6 % 12.9 TSH: None on file in the last 12 months Free T3: None on file in the last 12 months Free T4: None on file in the last 12 months Thyroglobulin: None on file in the last 12 months Vitamin D: None on file in the last 12 months Latest Ref Rng & Units 12/24/2023 09/18/2015 05/10/2015 Hematocrit Hematocrit 36.0 - 46.0 % 42.5 39.6 41.3 Latest Ref Rng & Units 12/24/2023 07/24/2020 03/01/2019 Creatinine Creatinine 0.58 - 0.96 mg/dL 0.54 0.42 0.35 Latest Ref Rng & Units 12/24/2023 07/24/2020 03/01/2019 eGFR EGFR >=60 mL/min/1.73m 131 EGFR-All Other Races . >60 >60 EGFR- >60 >60 Latest Ref Rng & Units 12/24/2023 07/24/2020 03/01/2019 Potassium Potassium 3.7 - 5.1 mmol/L 4.8 3.3 4.5 Testosterone: None on file in the last 12 months IGF: None on file in the last 12 months Prolactin: None on file in the last 12 months [facility] Discharge summary [facility] Medical Records Department [address] [place] [address] Emergency Department Summary 10/04/24 MR#: [id number] Acct: [id number] Name: KALIE DESIR Rep #:[id number] : 2000 24 From: Danitza Beard PCP: Minnie Hodge Status:REG E R Location: ED HPI History of Present Illness Chief Complaint: Upper Extremity Injury Informant: patient Narrative Narrative: Patient is a right-handed female presenting with right thumb pain. She has beengoing on for 2 weeks. She has associated swelling. Denies any fever or chills. Worse with range of motion. Does a lot ofrepetitive movements at work. Denies any initial trauma. Because it was still swelling and still having pain her significant other recommend she come in to have it evaluated. No other complaints or concerns reported at this time. No other numbness or tingling reported Has been taking Aleve twice a day for symptoms. [facility] Medical History Obesity (BMI 30.0-34.9) Insulin dependent type 1 diabetes mellitus Tachycardia Diabetic ketoacidosis Hx of type 1 diabetes mellitus Non-compliance DKA (diabetic ketoacidosis) Type 1 diabetes mellitus with hyperglycemia Hypokalemia Hypophosphatemia Cannabis hyperemesis syndrome concurrent with and due to cannabis abuse DKA, type [address] History of marijuana use Anxiety and depression Insomnia Numbness and tingling Insulin pump titration Presence of insulin pump History of hepatitis A Asthma Diabetes type 1, controlled Home Medications ?Medication ?Instructions ?Recorded ?Last Taken ?Type albuterol sulfate 90 mcg/actuation 2 puff inhalation Q 4H PRN SHORTNES 08/25/18 03/02/23 History aerosol inhaler (Ventolin HFA) OF BREATH/WHEEZING Ketone Urine Test (acetone (urine) #50 ea 11/05/21 Unk nown Rx test) fluticasone propionate 50 2 spray intranasal DAILY YARA AL 11/21/22 02/12/23 History mcg/actuation nasal CONGESTION spray,suspension pen needle, diabetic 32 gauge x #120 ea 11/23/22 Unkno wn Rx 32 (BD Ultra-Fine Opal Pen Needle) hydroxyzine pamoate 25 mg capsule 25 mg PO QHS ITCHING #30 caps 01/13/23 02/12/23 Rx (Vistaril) blood-glucose sensor (Dexcom G6 #9 ea 11/10/23 Unknown Rx Sensor device) blood-glucose transmitter (Dexcom #1 ea 11/10/23 Unkno wn Rx G6 Transmitter device) metoclopramide HCl 5 mg tablet 5 mg PO DAILY PRN nause a and 05/12/24 Unknown Rx (Reglan) vomiting 3 days #9 tabs insulin glargine-yfgn 100 unit/mL 30 unit (0.3 mL) sub cut DAILY #0 mL 05/14/24 Unknown Rx (3 mL) subcutaneous pen insulin lispro 100 unit/mL 15 unit (0.15 mL) subcut TI DAC #0 05/14/24 Unknown Rx subcutaneous pen (Humalog KwikPen mL (U-100) Insulin) Allergy/AdvReac Type Severity Reaction Status Date / Time bee venom protein (honey Allergy Severe Anaphylaxis Verified 09/13/24 09:16 bee) (bee stings) Sulfa (Sulfonamide Allergy Unknown Verified 09/13/24 09:16 Antibiotics) prednisone AdvReac Vomiting Verified 09/13/24 09:16 Family History Grandmother Diabetes Sister Asthma Brother Asthma Mother Heart disease Surgical History History of placement of ear tubes Social History adopted: No household members: spouse housing: other details: mobile home number of children: 0 current occupational status: employed current occupation: [employer] pets and animals: Yes pets and animals: dog(s) and other details: python history of recent travel: Yes ([place]) out of state: Yes out of country: No sexually active: Yes Smoking Status: Never smoker second hand exposure: Yes alcohol intake: never substance use type: marijuana and other details: Cannabis, last use ~ 1 month prior, ingested. well-balanced diet: about half the time caffeine: No eating out: 1-3 times/week during the past year weight has: other details: fluxuates 20 # what type of physical activity do you participate in: walking and weight training jose/sabianist: None seatbelt use: always do you feel safe at home: Yes additional social history: - Markie RIDLEY ED Constitutional Constitutional ED: Denies chills or fever(s) Musculoskeletal Musculoskeletal: Reports other Details: right thumb pain Integumentary Denies Abrasions or rash Neurologic Neurologic: Denies paresthesias or weakness EXAM Physical Exam Const Vital Signs: 10/04/24 13:40 Temperature 97.5 F L Temperature Source Temporal Pulse Rate 88 Respiratory Rate 15 Blood Pressure 139/82 H Blood Pressure Mean 101 Pulse Ox 99 Oxygen Delivery Method Room Air Positive well nourished and well developed General Appearance ED: well developed and NAD Chest Wall inspection of chest normal Resp normal respiratory effort Cardio Cardio Narrative: 2+ radial pulses, brisk capillary refill Extremity full ROM Extremity Narrative: Subtle swelling noted of the right thenar eminence and proximal thumb. No associated erythema. There is some very subtle ecchymosis noted at the base of the first metacarpal. Normal range of motion. Increased pain with flexion of the thumb most pronounced over the first MCP. Increased pain with palpation of the first MCP. No associated warmth. No tenderness over the anatomical snuffbox or tenderness with axial loading of the thumb. Normal range of motion of the wrist but some increased pain with range of motion of the wrist as well. Compartments are soft. No associated lymphangitic streaking Neuro oriented x3, moves all extremities, no focal motor deficits and no sensory deficits noted Psych mental status grossly normal Skin Lesions: no lesions Rashes: no rashes MDM MDM MDM Narrative Medical decision making narrative: Patient valuated for pain of her right thumb. Protocol x-ray obtained which shows mild degenerativechanges of the first interphalangeal joint and the firstcarpal metacarpal joint. This is reviewed by myself as well as radiology. Suspect patient has overuse injury. Low suspicion for gouty arthropathy or infectious arthritis. I do not think she requires further workup. Instructed to continue NSAID therapy, ice and given a thumb spica splint. Given a note forwork so she may continue to use her splint at work. Given a work note for today. Given return precautions. Encouraged follow-up outpatient with orthopedics, given referral. Discharged home in stable condition. Radiography Diagnostic Testing: Clinical Impression(s) from Imaging Studies Finger X-Ray 10/04/24 13:50 IMPRESSION: Mild degenerative changes are seen both of the right 1st interphalangeal joint and the 1st carpal-metacarpal joint. No significant degree of joint narrowing is seen. No fracture or dislocation is evident. Reading Location: [address] Discharge Plan Triage Chief Complaint: Upper Extremity Injury ED Provider: Danitza Canada Dx/Rx/DC Orders Clinical Impression: Overuse injury, Pain of right thumb Instructions: Tendonitis and Tenosynovitis Prescriptions: No Action hydroxyzine pamoate [Vistaril] 25 mg capsule 25 mg PO QHS Qty: 30 6RF (DME) Dexcom G6 Sensor Device See Rx Instructions .Route Qty: 9 0RF Rx Instructions: 1 sensor q 10 days (DME) Dexcom G6 Transmitter Device See Rx Instructions .Route Qty: 1 0RF Rx Instructions: As directed albuterol sulfate [Ventolin HFA] 18 GM HFA aerosol inhaler 2 puff inhalation Q4H PRN (Reason: SHORTNES OF BREATH/WHEEZING) fluticasone propionate 50 mcg/actuation spray,suspension 2 spray INTRANASAL DAILY (DME) pen needle, diabetic [BD Ultra-Fine Opal Pen Needle] 32 gauge x 5/32 needle See Rx Instructions .ROUTE .MEDSUPPLY Qty: 120 5RF Rx Instructions: 4 times daily insulin glargine-yfgn 100 unit/mL (3 mL) Insulin Pen 30 unit subcut DAILY Qty: 0 0RF insulin lispro [Humalog KwikPen Insulin] 100 unit/mL Insulin Pen 15 unit subcut TIDAC Qty: 0 0RF metoclopramide HCl [Reglan] 5 mg tablet 5 mg PO DAILY PRN (Reason: nausea and vomiting) 3 Days Qty: 9 0RF (DME) Ketone Urine Test Strip See Rx Instructions .ROUTE .MEDSUPPLY Qty: 50 1RF Rx Instructions: once/day Stand Alone Forms: ED Work / School Excuse Primary Care Provider: Minnie Hodge Referrals: Minnie Hodge [Primary Care Provider] - Antonio Lakhani DO [Med Staff - Active Staff] - Activity Restrictions/Additional Instructions: Continue to take NSAIDs (Aleve) as we discussed. Ice to the area. Wear thumb spica splint especially when at work to help rest the joint. Please follow-up with orthopedics. Print Language: Portuguese Disposition Disposition: Home, Self Care What to do if you have Problems For any increased pain, shortness of breath, bleeding, nausea or vomiting, chestpain, or any unexpected problems, contact your Primary Care Provider. Call [facility] ([phone]) or report tothe closest Emergency Room. Call 911 if necessary. 10/04/24 1508 Cosigner Signature (if applicable): CC: Minnie Hodge ~ Signed [facility]03-17-2025 Radiology Diagnostic study note [facility] Imaging Services [address] [place], [place] [id number] Finger(s) Min 2 Views MR#: [id number] Acct: [id number] Name: KALIE DESIR Rep #: [id number] : 2000 F 24 From: Tyler Small MD PCP: Minnie Hodge Status: PRE E R Study:Finger(s) Min 2 Views Date of Exam: 10/04/24 Exam# [id number] Ordering Dr: Provider ,Ed P. PROCEDURE: FINGER(S) MIN 2 VIEWS 10/04/2024 REASON FOR EXAM: PAIN TECHNIQUE: 3 view(s) of the right thumb COMPARISON: None RAD/Finger(s) Min 2 Views IMPRESSION: Mild degenerative changes are seen both of the right 1st interphalangeal joint and the 1st carpal-metacarpal joint. No significant degree of joint narrowing is seen. No fracture or dislocation is evident. Reading Location: [id number] CC: Minnie Hodge; ED PHYSICIAN PROVIDER ~ Timekeeper: Signed [facility]03-17-2025 Discharge summary Author Danitza Canada [facility] Note Date/Time October 04, 2024 3:0 8pm [facility] Medical Records Department [address] [place] [address] Emergency Department Summary 10/04/24 MR#: [id number] Acct: [id number] Name: KALIE DESIR Rep #:[id number] : 2000 24 From: Danitza Beard PCP: Minnie Hodge Status:REG E R Location: ED HPI History of Present Illness Chief Complaint: Upper Extremity Injury Informant: patient Narrative Narrative: Patient is a right-handed female presenting with right thumb pain. She has beengoing on for 2 weeks. She has associated swelling. Denies any fever or chills. Worse with range of motion. Does a lot of repetitive movements at work. Denies any initial trauma. Because it was still swelling and still having pain her significant other recommend she come in to have it evaluated. No other complaints or concerns reported at this time. No other numbness or tingling reported Has been taking Aleve twice a day for symptoms. [facility] Medical History Obesity (BMI 30.0-34.9) Insulin dependent type 1 diabetes mellitus Tachycardia Diabetic ketoacidosis Hx of type 1 diabetes mellitus Non-compliance DKA (diabetic ketoacidosis) Type 1 diabetes mellitus with hyperglycemia Hypokalemia Hypophosphatemia Cannabis hyperemesis syndrome concurrent with and due to cannabis abuse DKA, type [address] History of marijuana use Anxiety and depression Insomnia Numbness and tingling Insulin pump titration Presence of insulin pump History of hepatitis A Asthma Diabetes type 1, controlled Home Medications ?Medication ?Instructions ?Recorded ?Last Taken ?Type albuterol sulfate 90 mcg/actuation 2 puff inhalation Q 4H PRN SHORTNES 08/25/18 03/02/23 History aerosol inhaler (Ventolin HFA) OF BREATH/WHEEZING Ketone Urine Test (acetone (urine) #50 ea 11/05/21 Unk nown Rx test) fluticasone propionate 50 2 spray intranasal DAILY YARA AL 11/21/22 02/12/23 History mcg/actuation nasal CONGESTION spray,suspension pen needle, diabetic 32 gauge x #120 ea 11/23/22 Unkno wn Rx (BD Ultra-Fine Opal Pen Needle) hydroxyzine pamoate 25 mg capsule 25 mg PO QHS ITCHING #30 caps 01/13/23 02/12/23 Rx (Vistaril) blood-glucose sensor (Dexcom G6 #9 ea 11/10/23 Unknown Rx Sensor device) blood-glucose transmitter (Dexcom #1 ea 11/10/23 Unkno wn Rx G6 Transmitter device) metoclopramide HCl 5 mg tablet 5 mg PO DAILY PRN nause a and 05/12/24 Unknown Rx (Reglan) vomiting 3 days #9 tabs insulin glargine-yfgn 100 unit/mL 30 unit (0.3 mL) sub cut DAILY #0 mL 05/14/24 Unknown Rx (3 mL) subcutaneous pen insulin lispro 100 unit/mL 15 unit (0.15 mL) subcut TI DAC #0 05/14/24 Unknown Rx subcutaneous pen (Humalog KwikPen mL (U-100) Insulin) Allergy/AdvReac Type Severity Reaction Status Date / Time bee venom protein (honey Allergy Severe Anaphylaxis Verified 09/13/24 09:16 bee) (bee stings) Sulfa (Sulfonamide Allergy Unknown Verified 09/13/24 09:16 Antibiotics) prednisone AdvReac Vomiting Verified 09/13/24 09:16 Family History Grandmother Diabetes Sister Asthma Brother Asthma Mother Heart disease Surgical History History of placement of ear tubes Social History adopted: No household members: spouse housing: other details: mobile home number of children: 0 current occupational status: employed current occupation: [employer] pets and animals: Yes pets and animals: dog(s) and other details: python history of recent travel: Yes ([place]) out of state: Yes out of country: No sexually active: Yes Smoking Status: Never smoker second hand exposure: Yes alcohol intake: never substance use type: marijuana and other details: Cannabis, last use ~ 1 month prior, ingested. well-balanced diet: about half the time caffeine: No eating out: 1-3 times/week during the past year weight has: other details: fluxuates 20 # what type of physical activity do you participate in: walking and weight training jose/sabianist: None seatbelt use: always do you feel safe at home: Yes additional social history: - Markie RIDLEY ROS ED Constitutional Constitutional ED: Denies chills or fever(s) Musculoskeletal Musculoskeletal: Reports other Details: right thumb pain Integumentary Denies Abrasions or rash Neurologic Neurologic: Denies paresthesias or weakness EXAM Physical Exam Const Vital Signs: 10/04/24 13:40 Temperature 97.5 F L Temperature Source Temporal Pulse Rate 88 Respiratory Rate 15 Blood Pressure 139/82 H Blood Pressure Mean 101 Pulse Ox 99 Oxygen Delivery Method Room Air Positive well nourished and well developed General Appearance ED: well developed and NAD Chest Wall inspection of chest normal Resp normal respiratory effort Cardio Cardio Narrative: 2+ radial pulses, brisk capillary refill Extremity full ROM Extremity Narrative: Subtle swelling noted of the right thenar eminence and proximal thumb. No associated erythema. There is some very subtle ecchymosis noted at the base of the first metacarpal. Normal range of motion. Increased pain with flexion of the thumb most pronounced over the first MCP. Increased pain with palpation of the first MCP. No associated warmth. No tenderness over the anatomical snuffbox or tenderness with axial loading of the thumb. Normal range of motion of the wrist but some increased pain with range of motion of the wrist as well. Compartments are soft. No associated lymphangitic streaking Neuro oriented x3, moves all extremities, no focal motor deficits and no sensory deficits noted Psych mental status grossly normal Skin Lesions: no lesions Rashes: no rashes MDM MDM MDM Narrative Medical decision making narrative: Patient valuated for pain of her right thumb. Protocol x-ray obtained which shows mild degenerative changes of the first interphalangeal joint and the firstcarpal metacarpal joint. This is reviewed by myself as well as radiology. Suspect patient has overuse injury. Low suspicion for gouty arthropathy or infectious arthritis. I do not think she requires further workup. Instructed to continue NSAID therapy, ice and given a thumb spica splint. Given a note forwork so she may continue to use her splint at work. Given a work note for today. Given return precautions. Encouraged follow-up outpatient with orthopedics, given referral. Discharged home in stable condition. Radiography Diagnostic Testing: Clinical Impression(s) from Imaging Studies Finger X-Ray 10/04/24 13:50 IMPRESSION: Mild degenerative changes are seen both of the right 1st interphalangeal joint and the 1st carpal-metacarpal joint. No significant degree of joint narrowing is seen. No fracture or dislocation is evident. Reading Location: [address] Discharge Plan Triage Chief Complaint: Upper Extremity Injury ED Provider: Danitza Canada Dx/Rx/DC Orders Clinical Impression: Overuse injury, Pain of right thumb Instructions: Tendonitis and Tenosynovitis Prescriptions: No Action hydroxyzine pamoate [Vistaril] 25 mg capsule 25 mg PO QHS Qty: 30 6RF (DME) Dexcom G6 Sensor Device See Rx Instructions .Route Qty: 9 0RF Rx Instructions: 1 sensor q 10 days (DME) Dexcom G6 Transmitter Device See Rx Instructions .Route Qty: 1 0RF Rx Instructions: As directed albuterol sulfate [Ventolin HFA] 18 GM HFA aerosol inhaler 2 puff inhalation Q4H PRN (Reason: SHORTNES OF BREATH/WHEEZING) fluticasone propionate 50 mcg/actuation spray,suspension 2 spray INTRANASAL DAILY (DME) pen needle, diabetic [BD Ultra-Fine Opal Pen Needle] 32 gauge x 5/32 needle See Rx Instructions .ROUTE .MEDSUPPLY Qty: 120 5RF Rx Instructions: 4 times daily insulin glargine-yfgn 100 unit/mL (3 mL) Insulin Pen 30 unit subcut DAILY Qty: 0 0RF insulin lispro [Humalog KwikPen Insulin] 100 unit/mL Insulin Pen 15 unit subcut TIDAC Qty: 0 0RF metoclopramide HCl [Reglan] 5 mg tablet 5 mg PO DAILY PRN (Reason: nausea and vomiting) 3 Days Qty: 9 0RF (DME) Ketone Urine Test Strip See Rx Instructions .ROUTE .MEDSUPPLY Qty: 50 1RF Rx Instructions: once/day Stand Alone Forms: ED Work / School Excuse Primary Care Provider: Minnie Hodge Referrals: Minnie Hodge [Primary Care Provider] - Antonio Lakhani DO [Med Staff - Active Staff] - Activity Restrictions/Additional Instructions: Continue to take NSAIDs (Aleve) as we discussed. Ice to the area. Wear thumb spica splint especially when at work to help rest the joint. Please follow-up with orthopedics. Print Language: Portuguese Disposition Disposition: Home, Self Care What to do if you have Problems For any increased pain, shortness of breath, bleeding, nausea or vomiting, chestpain, or any unexpected problems, contact your Primary Care Provider. Call [facility] ([phone]) or report to the closest Emergency Room. Call 911 if necessary. 10/04/24 1508 <Electronically signed by Danitza Canada DO> Cosigner Signature (if applicable): CC: Minnie Hodge ~ Signed [facility] Work Phone: 1(103) 192-158902-24-2025 Evaluation note* Diagnosis Onset Date Resolution Status Admit Date Encounter for contraceptive management acute September 13, 025 8:36am Encounter for routine gynecological examination noneactive 2024 8:36am [facility] Work Phone: 1(505) 521-111702-24-2025 Evaluation note* Diagnosis Onset Date Resolution Status Admit Date Encounter for contraceptive management acute September 13, 025 8:36am Encounter for routine gynecological examination noneactive 2024 8:36am Diabetic ketoacidosis associated with type 1 diabetes mellitus acute November 27, 2024 2:49pm Leukocytosis acute November 27 2:49pm Nausea & vomiting acute November 2:49pm Sinus tachycardia seen on pvc monitor acute November 27, 2024 2 :49pm [facility] Work Phone: 1(746) 997-856902-24-2025 Evaluation note* Diagnosis Onset Date Resolution Status Admit Date Encounter for contraceptive management acute September 13, 8:36am Encounter for routine gynecological examination noneactive Februa ry 2024 8:36am Diabetic ketoacidosis associated with type 1 diabetes mellitus acute November 27, 2024 3:42pm Leukocytosis acute November 27 3:42pm Nausea & vomiting acute November 3:42pm Sinus tachycardia seen on pvc monitor acute November 27, 2024 3 :42pm Diabetic ketoacidosis resolved November 27, 2024 3:42pm Insulin dependent type 1 diabetes mellitus inactive November 27, 2024 3:42pm [facility] Work Phone: 1(592) 115-389701-30-2025 Telephone encounter Note* Telephone Encounter - Aicha Hines RN - 08/19/2024 12:33 PM EST Patient notified and voiced understanding. Transferred to [facility] to schedule. Aicha Hines RN [facility]01-30-2025 Miscellaneous Notes* Telephone Encounter - Aicha Hines RN - 08/19/2024 12:33 PM EST Patient notified and voiced understanding. Transferred to [facility] to schedule. Aicha Hines RN * Telephone Encounter - Devika Tarango MD - 08/19/2024 12:26 PM EST Filed order * Telephone Encounter - Lexi Campos RN - 08/19/2024 10:45 AM EST Nexplanon removal order pending. Please file in AT absence and will contact Pt to schedule appt. Lexi Campos RN * Telephone Encounter - Denisa Loaiza - 08/19/2024 9:57 AM EST Pt is requesting to have Nexplanon removal due to wanting to try to conceive. Please advise and place order. Thank you [facility] Telephone encounter Note * Telephone Encounter - Devika Tarango MD - 08/19/2024 12:26 PM EST Filed order [facility] Work Phone: 1(524) 258-114601-30-2025 Telephone encounter Note* Telephone Encounter - Lexi Campos RN - 08/19/2024 10:45 AM EST Nexplanon removal order pending. Please file in AT absence and will contact Pt to schedule appt. Lexi Campos RN [facility]01-30-2025 Telephone encounter Note* Telephone Encounter - Denisa Loaiza - 08/19/2024 9:57 AM EST Pt is requesting to have Nexplanon removal due to wanting to try to conceive. Please advise and place order. Thank you [facility]01-29-2025 NoteHNO ID: [id number] Author: ARIS CHOW APRN.CHANGER FIXER Service: ? Author Type: Nurse Practitioner Type: Progress Notes Filed: 08/18/2024 13:00 Note Text: Subjective HPI HPI Kalie Desir is a 24 year old female who presents today for CC of sinus pressure, cough. This started 10 days ago. Has tried otc medication for relief. Symptoms are worsened by nothing. Risk factors sick exposures. Nonsmoker. DM1 Diarrhea/nausea for 1 day, close exposure to norovirus. Denies possibility of being . .Patient presents with: Nasal Congestion: drainage, cough x 10 days, diarrhea, nausea x 1 day PAST MEDICAL HISTORY Diagnosis Date Asthma Constipation 08/07/2016 Diabetes mellitus type 1 (HCC) Hepatitis A 02/15/2019 PAST SURGICAL HISTORY Procedure Laterality Date ADENOIDECTOMY PRIMARY age 18 month MYRINGOTOMY W TUBE,BILATERAL(2) age 18 months NEXPLANON INSERTION 07/06/2014 ALLERGIES Bee Venom Protein (Honey Bee), Melatonin, Penicillins, Prednisone, and Sulfatrim Ds MEDICATIONS insulin glargine (BASAGLAR KWIKPEN U-100 INSULIN) 100 unit/mL (3 mL) Inject 20 units daily Insulin Rincon, Disposable, (PEN NEEDLE) 32 gauge x / Uses up to 5 daily with insulin injection. Give with each insulin administration. insulin aspart U-100 (NOVOLOG FLEXPEN U-100 INSULIN) 100 unit/mL (3 mL) Inject subcutaneously. Inject 15 units with meals and sliding scale as needed TDD 60 units OMNIPOD 5 G6 PODS, GEN 5, crtg CHANGE EVERY 48 HOURS hydrOXYzine pamoate (VISTARIL) 25 mg capsule daily at bedtime. potassium chloride ER (KLOR-CON) 20 mEq tablet Take 20 mEq by mouth as needed. DEXCOM G6 SENSOR cooper as directed. DEXCOM G6 TRANSMITTER cooper as directed. fluticasone (FLONASE) 50 mcg/actuation nasal spray Use 2 Sprays in each nostril once daily. Rinse mouth after use. albuterol HFA (VENTOLIN HFA) 90 mcg/actuation inhaler Inhale 2 Puffs as instructed every 4 hours as needed. etonogestrel (NEXPLANON) subdermal implant 68 mg ONCE Alcohol Swabs (ALCOHOL PREP PADS) padm Apply 1 application to affected area every 4 hours as needed (blood glucose check). Inhalational Spacing Device (AEROCHAMBER MASK LARGE) spcr 1 Device as needed. etonogestrel (NEXPLANON) subdermal implant 68 mg 1 Each by SUBDERMAL route as directed. FAMILY HISTORY Problem Relation Age of Onset Hypertension Mother None Father Allergies Sister None Maternal Grandmother None Maternal Grandfather Diabetes Paternal Grandmother Hypertension Paternal Grandfather Social History Tobacco Use Smoking status: Never Passive exposure: Yes Smokeless tobacco: Never Tobacco comments: parents inside/outside Vaping Use Vaping status: Never Used Substance Use Topics Alcohol use: Yes Comment: occasional Drug use: Yes Types: Marijuana Comment: Hx of marijuana Review of Systems Constitutional: Positive for malaise/fatigue. Negative for fever. HENT: Positive for congestion, sinus pain and sore throat. Negative for ear pain and nosebleeds. Respiratory: Positive for cough. Negative for shortness of breath and wheezing. Gastrointestinal: Positive for diarrhea and nausea. Negative for abdominal pain and vomiting. Musculoskeletal: Negative for neck pain. Objective Blood pressure 122/70, pulse 102, temperature 36.7 ?C (98.1 ?F), resp. rate 16, weight 66.4 kg (146 lb 6.2 oz), last menstrual period 02/22/2024, SpO2 98%. Physical Exam Constitutional: General: She is not in acute distress. Appearance: Normal appearance. She is not toxic-appearing or diaphoretic. HENT: Head: Normocephalic and atraumatic. Right Ear: Hearing, tympanic membrane, ear canal and external ear normal. Left Ear: Hearing, tympanic membrane, ear canal and external ear normal. Nose: Nose normal. Mouth/Throat: Pharynx: Uvula midline. No pharyngeal swelling, oropharyngeal exudate, posterior oropharyngeal erythema or uvula swelling. Eyes: General: Lids are normal. No scleral icterus. Right eye: No discharge. Left eye: No discharge. Conjunctiva/sclera: Conjunctivae normal. Pupils: Pupils are equal, round, and reactive to light. Neck: Trachea: Trachea normal. Cardiovascular: Rate and Rhythm: Normal rate and regular rhythm. Heart sounds: Normal heart sounds. Pulmonary: Effort: Pulmonary effort is normal. Breath sounds: Normal breath sounds. Abdominal: General: Bowel sounds are normal. Palpations: Abdomen is soft. Tenderness: There is abdominal tenderness (achy) in the right lower quadrant and left lower quadrant. Musculoskeletal: Cervical back: Normal range of motion and neck supple. Lymphadenopathy: Cervical: No cervical adenopathy. Right cervical: No superficial cervical adenopathy. Left cervical: No superficial cervical adenopathy. Skin: General: Skin is warm and dry. Findings: No rash. Neurological: Mental Status: She is alert and oriented to person, place, and time. ASSESSMENT/PLAN: 1. Ba (more content not included)...[facility]01-29-2025 History of Present illness Narrative* Aris Chow APRN.[facility] - 08/18/2024 12:46 PM EST Subjective HPI HPI Kalie Desir is a 24 year old female who presents today for CC of sinus pressure, cough. This started 10 days ago. Has tried otc medication for relief. Symptoms are worsened by nothing. Risk factors sick exposures. Nonsmoker. DM1 Diarrhea/nausea for 1 day, close exposure to norovirus. Denies possibility of being . .Patient presents with: Nasal Congestion: drainage, cough x 10 days, diarrhea, nausea x 1 day PAST MEDICAL HISTORY Diagnosis Date Asthma Constipation 08/07/2016 Diabetes mellitus type 1 (HCC) Hepatitis A 02/15/2019 PAST SURGICAL HISTORY Procedure Laterality Date ADENOIDECTOMY PRIMARY <AGE 12 age 18 month MYRINGOTOMY W TUBE,BILATERAL(2) age 18 months NEXPLANON INSERTION 07/06/2014 ALLERGIES Bee Venom Protein (Honey Bee), Melatonin, Penicillins, Prednisone, and Sulfatrim Ds MEDICATIONS insulin glargine (BASAGLAR KWIKPEN U-100 INSULIN) 100 unit/mL (3 mL) Inject 20 units daily Insulin Rincon, Disposable, (PEN NEEDLE) 32 gauge x 5/32 Uses up to 5 daily with insulin injection. Give with each insulin administration. insulin aspart U-100 (NOVOLOG FLEXPEN U-100 INSULIN) 100 unit/mL (3 mL) Inject subcutaneously. Inject 15 units with meals and sliding scale as needed TDD 60 units OMNIPOD 5 G6 PODS, GEN 5, crtg CHANGE EVERY 48 HOURS hydrOXYzine pamoate (VISTARIL) 25 mg capsule daily at bedtime. potassium chloride ER (KLOR-CON) 20 mEq tablet Take 20 mEq by mouth as needed. DEXCOM G6 SENSOR cooper as directed. DEXCOM G6 TRANSMITTER cooper as directed. fluticasone (FLONASE) 50 mcg/actuation nasal spray Use 2 Sprays in each nostril once daily. Rinse mouth after use. albuterol HFA (VENTOLIN HFA) 90 mcg/actuation inhaler Inhale 2 Puffs as instructed every 4 hours asneeded. etonogestrel (NEXPLANON) subdermal implant 68 mg ONCE Alcohol Swabs (ALCOHOL PREP PADS) padm Apply 1 application to affected area every 4 hours as needed(blood glucose check). Inhalational Spacing Device (AEROCHAMBER MASK LARGE) spcr 1 Device as needed. etonogestrel (NEXPLANON) subdermal implant 68 mg 1 Each by SUBDERMAL route as directed. FAMILY HISTORY Problem Relation Age of Onset Hypertension Mother None Father Allergies Sister None Maternal Grandmother None Maternal Grandfather Diabetes Paternal Grandmother Hypertension Paternal Grandfather Social History Tobacco Use Smoking status: Never Passive exposure: Yes Smokeless tobacco: Never Tobacco comments: parents inside/outside Vaping Use Vaping status: Never Used Substance Use Topics Alcohol use: Yes Comment: occasional Drug use: Yes Types: Marijuana Comment: Hx of marijuana Review of Systems Constitutional: Positive for malaise/fatigue. Negative for fever. HENT: Positive for congestion, sinus pain and sore throat. Negative for ear pain and nosebleeds. Respiratory: Positive for cough. Negative for shortness of breath and wheezing. Gastrointestinal: Positive for diarrhea and nausea. Negative for abdominal pain and vomiting. Musculoskeletal: Negative for neck pain. Objective Blood pressure 122/70, pulse 102, temperature 36.7 C (98.1 F), resp. rate 16, weight 66.4 kg (146 lb 6.2 oz), last menstrual period 02/22/2024, SpO2 98%. Physical Exam Constitutional: General: She is not in acute distress. Appearance: Normal appearance. She is not toxic-appearing or diaphoretic. HENT: Head: Normocephalic and atraumatic. Right Ear: Hearing, tympanic membrane, ear canal and external ear normal. Left Ear: Hearing, tympanic membrane, ear canal and external ear normal. Nose: Nose normal. Mouth/Throat: Pharynx: Uvula midline. No pharyngeal swelling, oropharyngeal exudate, posterior oropharyngeal erythema or uvula swelling. Eyes: General: Lids are normal. No scleral icterus. Right eye: No discharge. Left eye: No discharge. Conjunctiva/sclera: Conjunctivae normal. Pupils: Pupils are equal, round, and reactive to light. Neck: Trachea: Trachea normal. Cardiovascular: Rate and Rhythm: Normal rate and regular rhythm. Heart sounds: Normal heart sounds. Pulmonary: Effort: Pulmonary effort is normal. Breath sounds: Normal breath sounds. Abdominal: General: Bowel sounds are normal. Palpations: Abdomen is soft. Tenderness: There is abdominal tenderness (achy) in the right lower quadrant and left lower quadrant. Musculoskeletal: Cervical back: Normal range of motion and neck supple. Lymphadenopathy: Cervical: No cervical adenopathy. Right cervical: No superficial cervical adenopathy. Left cervical: No superficial cervical adenopathy. Skin: General: Skin is warm and dry. Findings: No rash. Neurological: Mental Status: She is alert and oriented to person, place, and time. ASSESSMENT/PLAN: 1. Bacterial sinusitis - ICD9: 473.9, 041.9, ICD10: J32.9, B96.89 (primary diagnosis) Start flonase today, hold atb, if s/s persist or worsen fill atb rx. - Supportive care with plenty of fluids, rest, and analgesia prn. - Follow up in 3-5 days if symptoms persist or worsen. - AMOXICILLIN 875 MG-POTASSIUM CLAVULANATE 125 MG TABLET - FLUTICASONE PROPIONATE 50 MCG/ACTUATION NASAL SPRAY,SUSPENSION 2. Diarrhea, unspecified type - ICD9: 787.91, ICD10: R19.7 Push fluids, likely norovirus Go to Er for severe/worsening s/s Aris Chow APRN.[employer] documented in this encounterSal[facility]11-26-[facility]24 Telephone encounter Note * Telephone Encounter - Nadya Tong RN - 06/15/2024 2:14 PM EST Per [facility] in [place], Pt requested that the Rx be transferred to [facility] today. Called pharmacist at [facility] to notify them that per the last Rx written by Veronika Dorado, TDD was 60 units for Novolog. Nadya Tong RN June 15, 2024 2:20 PM [facility]11-26-2024 Miscellaneous Notes* Telephone Encounter - Nadya Tong RN - 06/15/2024 2:14 PM EST Per [facility] in [place], Pt requested that the Rx be transferred to [facility] today. Called pharmacist at [facility] to notify them that per the last Rx written by Veronika Cioce, TDD was 60 units for Novolog. Nadya Tong RN June 15, 2024 2:20 PM * Telephone Encounter - Lisbeth North - 06/15/2024 12:24 PM EST [facility] called and stated they need to know the maximum units per day the patient is taking for the Novolog. Please advise documented in this encounterSalem [facility] Center11-26-2024 Telephone encounter Note * Telephone Encounter - Lisbeth North - 06/15/2024 12:24 PM EST [facility] and stated they need to know the maximum units per day the patient is taking for the Novolog. Please advise [facility]10-25-2024 [facility] Medical Records Department [address] [place] [id number] Discharge Summary 05/14/24 0942 MR#: [id number] Acct: [id number] Name: KALIE DESIR Rep #: [id number] : 2000 24 From: Damien Villagran DO PCP: Minnie Hodge Status:ADM IN Location: ICU [id number] Providers Date of Admission: 05/13/24 Primary Care Physician: Minnie Hodge Reason For Visit: DKA, INTRACTABLE NAUSEA VOMITING NON BLOODY Diagnosis Discharge Diagnosis (1) Diabetic ketoacidosis: Status: Acute Code(s): E11.10 - Type 2 diabetes mellitus with ketoacidosis without coma Qualifiers: Diabetes mellitus type: type 1 Diabetes mellitus complication detail: without coma Q ualified Code(s): E10.10 - Type 1 diabetes mellitus with ketoacidosis without coma (2) Insulin dependent type 1 diabetes mellitus: Status: Acute Code(s): E10.9 - Type 1 diabetes mellitus without complications Qualifiers: Diabetes mellitus complication status: with ketoacidosis Diabetes mellitus complication detail: without coma Qualified Code(s): E10.10 - Type 1 diabetes mellitus with ketoacidosis without coma Plan DKA * in type I diabetic. Admission glucose of 441, pH (on VBG) was 7.05) * on insulin gtt, IVF (NS, D5NS). Gap closed x2 * Patient states that she is actually not on an insulin pump but is using glargine. Will reinstitute insulin glargine 30 units daily and humalog 15 units w meals. Suspected cannabinoid hyperemesis syndrome. * Advised complete cessation. Patient said that she will but she seem rather unconvincing. * Refractory to Zofran. Patient ordered a dose of haloperidol and ordered heating packs to see if that would help. Chronic conditions: * obesity class I: complicates care and recovery * asthma: stable VTE prophylaxis: VTE prophylaxis. Medications at Discharge Home Medications albuterol sulfate 90 mcg/actuation aerosol inhaler (Ventolin HFA) 2 puff inhalation Q4H PRN SHORTNES OF BREATH/WHEEZING 08/25/18 Ketone Urine Test (acetone (urine) test) #50 ea 11/05/21 fluticasone propionate 50 mcg/actuation nasal spray,suspension 2 spray intranasal DAILY NASAL CONGESTION 11/21/22 pen needle, diabetic 32 gauge x 5/32 (BD Ultra-Fine Opal Pen Needle) #120 ea 11/23/22 hydroxyzine pamoate 25 mg capsule (Vistaril) 25 mg PO QHS ITCHING #30 caps 01/13/23 blood-glucose sensor (Dexcom G6 Sensor device) #9 ea 11/10/23 blood-glucose transmitter (Dexcom G6 Transmitter device) #1 ea 11/10/23 metoclopramide HCl 5 mg tablet (Reglan) 5 mg PO DAILY PRN nausea and vomiting 3 days #9 tabs 05/12/24 insulin glargine-yfgn 100 unit/mL (3 mL) subcutaneous pen 30 unit (0.3 mL) subcut DAILY #0 mL 05/14/24 insulin lispro 100 unit/mL subcutaneous pen (Humalog KwikPen (U-100) Insulin) 15 unit (0.15 mL) subcut TIDAC #0 mL 05/14/24 Hospital Course Operations None Procedures None Summary of Care Provided Hospital Course: Patient presents with nausea and vomiting and was found to be in DKA. Patient was on insulin drip per protocol and got out of DKA on the and was resumed on her regular insulin regimen which includes insulin glargine and prandial insulin. Blood sugars have remained stable. Patient had drug screen was positive for cannabinoids and patient has openly admitted to using marijuana. I told the patient is unclear if she has cannabinoid hyperemesis syndrome or if she has underlying gastroparesis but she has been strongly advised to avoid cannabinoids whether she smokes it or takes edibles etc. She expressed understanding and stated that she will comply. She states that she is good on insulin at home (she takes glargine as well as prandial insulin, not the insulin pump). Physical Exam Narrative Feeling better. No further nausea or vomiting. Const alert and no apparent distress HEENT normocephalic and head/scalp atraumatic Weight / BMI Weight Weight: 63 kg Body Mass Index (BMI) 29.9 ABG / Lab / Microbiology Data 05/13/24 01:22 05/14/24 03:30 Laboratory: Laboratory Results - last 24 hr 05/13/24 04:24: Hemoglobin A1c 11.0 H 05/13/24 08:17: POC Glucose 185 H 05/13/24 09:33: POC Glucose 179 H 05/13/24 11:00: POC Glucose 211 H 05/13/24 12:20: POC Glucose 171 H 05/13/24 12:30: Sodium 139, Potassium 3.8, Chloride 115 H, Carbon Dioxide 17.0 L, Anion Gap 7, BUN 9, Creatinine 0.82, Estim Creat Clear Calc 86.17, Est GFR (MDRD) Af Amer 108, Est GFR (MDRD) Non-Af 89, BUN/Creatinine Ratio 10.9, Glucose 184 H, Calcium 8.0 L, Acetone Level SMALL H 05/13/24 13:15: POC Glucose 134 H 05/13/24 14:20: POC Glucose 111 H 05/13/24 17:46: POC Glucose 154 H 05/13/24 21:05: POC Glucose 99 05/14/24 03:30: Sodium 139, Potassium 3.0 L, Chloride 112 H, Carbon Dioxide 21.0, Anion Gap 6, BUN 8, Creatinine 0.79, Estim Creat Clear Calc 89.44, Est GFR (MDRD) Af Amer 114, Est GFR (MDRD) (more content not included)...[facility] 05-07-2024 NoteHNO ID: [id number] Author: ARJUN KIM MD Service: ? Author Type: Physician Type: Progress Notes Filed: 05/07/2024 15:31 Note Text: Patient presents with: Diarrhea: With vomiting AND intermittent HILARIO with low grade fever x 2 days HPI: Feeling sick starting 2 days ago. She has been exposed to sick contacts. Positive symptoms: Headache, Nausea, Vomiting, Diarrhea, Fever (103), Body Aches, abdominal cramping Negative symptoms: Cough, Sore throat, Nasal Congestion, Rhinorrhea, blood in emesis/stool, OTC: aleve (for toothache), sugar free electrolyte fluids Glucose has been running 250-300. MEDICATIONS: Current Outpatient Medications Medication Sig insulin glargine (BASAGLAR KWIKPEN U-100 INSULIN) 100 unit/mL (3 mL) Inject 20 units daily Insulin Rincon, Disposable, (PEN NEEDLE) 32 gauge x 5/32 Uses up to 5 daily with insulin injection. Give with each insulin administration. insulin aspart U-100 (NOVOLOG FLEXPEN U-100 INSULIN) 100 unit/mL (3 mL) Inject subcutaneously. Inject 15 units with meals and sliding scale as needed TDD 60 units OMNIPOD 5 G6 PODS, GEN 5, crtg CHANGE EVERY 48 HOURS etonogestrel (NEXPLANON) subdermal implant 68 mg 1 Each by SUBDERMAL route as directed. hydrOXYzine pamoate (VISTARIL) 25 mg capsule daily at bedtime. potassium chloride ER (KLOR-CON) 20 mEq tablet Take 20 mEq by mouth as needed. DEXCOM G6 SENSOR cooper as directed. DEXCOM G6 TRANSMITTER cooper as directed. fluticasone (FLONASE) 50 mcg/actuation nasal spray Use 2 Sprays in each nostril once daily. Rinse mouth after use. albuterol HFA (VENTOLIN HFA) 90 mcg/actuation inhaler Inhale 2 Puffs as instructed every 4 hours as needed. etonogestrel (NEXPLANON) subdermal implant 68 mg ONCE Alcohol Swabs (ALCOHOL PREP PADS) padm Apply 1 application to affected area every 4 hours as needed (blood glucose check). Inhalational Spacing Device (AEROCHAMBER MASK LARGE) spcr 1 Device as needed. No current facility-administered medications for this visit. ALLERGIES: ALLERGIES Allergen Reactions Bee Venom Protein (* Anaphylaxis Melatonin Diarrhea Penicillins Rash Prednisone Vomiting Sulfatrim Ds Vomiting VITALS: BP 118/68 Pulse 89 Temp 37.2 ?C (99 ?F) (Left Tympanic) Resp 16 Wt 68.7 kg (151 lb 7.3 oz) LMP 02/22/2024 (Approximate) SpO2 98% BMI 30.95 kg/m? PHYSICAL EXAM: GEN: mildly ill appearing, pleasant, alert HEENT: PERRL, EOMI, conjunctiva clear Nose: patent Throat: moist mucous membranes, no erythema, no exudate Neck: supple, no thyromegaly, no lymphadenopathy HEART: regular rate and rhythm, no murmurs LUNGS: clear to auscultation, no wheezes or crackles, no increased WOB ABD: Soft, distended, general discomfort, no masses ASSESSMENT/PLAN: 1. Gastroenteritis - ICD9: 558.9, ICD10: K52.9 Hydration with fluids encouraged. She feels she is getting adequate liquid intake and is actually urinating frequently. Resume normal solid intake as tolerated. Follow up in the ER with signs of dehydration, increasing abdominal pain, persistent high fever, elevated glucose, or blood in vomit or stool. - ONDANSETRON 4 MG DISINTEGRATING TABLET Arjun Kim [facility]10-18-2024 History of Present illness Narrative* Arjun Kim MD - 05/07/2024 3:14 PM EDT Patient presents with: Diarrhea: With vomiting & intermittent HILARIO with low grade fever x 2 days HPI: Feeling sick starting 2 days ago. She has been exposed to sick contacts. Positive symptoms: Headache, Nausea, Vomiting, Diarrhea, Fever (103), Body Aches, abdominal cramping Negative symptoms: Cough, Sore throat, Nasal Congestion, Rhinorrhea, blood in emesis/stool, OTC: aleve (for toothache), sugar free electrolyte fluids Glucose has been running 250-300. MEDICATIONS: Current Outpatient Medications Medication Sig insulin glargine (BASAGLAR KWIKPEN U-100 INSULIN) 100 unit/mL (3 mL) Inject 20 units daily Insulin Rincon, Disposable, (PEN NEEDLE) 32 gauge x 5/32 Uses up to 5 daily with insulin injection. Give with each insulin administration. insulin aspart U-100 (NOVOLOG FLEXPEN U-100 INSULIN) 100 unit/mL (3 mL) Inject subcutaneously. Inject 15 units with meals and sliding scale as needed TDD 60 units OMNIPOD 5 G6 PODS, GEN 5, crtg CHANGE EVERY 48 HOURS etonogestrel (NEXPLANON) subdermal implant 68 mg 1 Each by SUBDERMAL route as directed. hydrOXYzine pamoate (VISTARIL) 25 mg capsule daily at bedtime. potassium chloride ER (KLOR-CON) 20 mEq tablet Take 20 mEq by mouth as needed. DEXCOM G6 SENSOR cooper as directed. DEXCOM G6 TRANSMITTER cooper as directed. fluticasone (FLONASE) 50 mcg/actuation nasal spray Use 2 Sprays in each nostril once daily. Rinse mouth after use. albuterol HFA (VENTOLIN HFA) 90 mcg/actuation inhaler Inhale 2 Puffs as instructed every 4 hours asneeded. etonogestrel (NEXPLANON) subdermal implant 68 mg ONCE Alcohol Swabs (ALCOHOL PREP PADS) padm Apply 1 application to affected area every 4 hours as needed(blood glucose check). Inhalational Spacing Device (AEROCHAMBER MASK LARGE) spcr 1 Device as needed. No current facility-administered medications for this visit. ALLERGIES: ALLERGIES Allergen Reactions Bee Venom Protein (* Anaphylaxis Melatonin Diarrhea Penicillins Rash Prednisone Vomiting Sulfatrim Ds Vomiting VITALS: BP 118/68 Pulse 89 Temp 37.2 C (99 F) (Left Tympanic) Resp 16 Wt 68.7 kg (151 lb 7.3 oz) LMP 02/22/2024 (Approximate) SpO2 98% BMI 30.95 kg/m PHYSICAL EXAM: GEN: mildly ill appearing, pleasant, alert HEENT: PERRL, EOMI, conjunctiva clear Nose: patent Throat: moist mucous membranes, no erythema, no exudate Neck: supple, no thyromegaly, no lymphadenopathy HEART: regular rate and rhythm, no murmurs LUNGS: clear to auscultation, no wheezes or crackles, no increased WOB ABD: Soft, distended, general discomfort, no masses ASSESSMENT/PLAN: 1. Gastroenteritis - ICD9: 558.9, ICD10: K52.9 Hydration with fluids encouraged. She feels she is getting adequate liquid intake and is actually urinating frequently. Resume normal solid intake as tolerated. Follow up in the ER with signs of dehydration, increasing abdominal pain, persistent high fever, elevated glucose, or blood in vomit or stool. - ONDANSETRON 4 MG DISINTEGRATING TABLET Arjun Kim MD documented in this encounterSalem [facility] Center09-25-2024 Telephone encounter Note * Telephone Encounter - Sherry Mcneill RN - 04/14/2024 4:13 PM EDT Received call from [facility] in [place] and the patient's insurance has changed to [employer] Asking for prior auth to be resubmitted. Sherry Mcneill RN [facility]09-25-2024 Miscellaneous Notes* Telephone Encounter - Sherry Mcneill RN - 04/14/2024 4:13 PM EDT Received call from [facility] in [place] and the patient's insurance has changed to [employer] Asking for prior auth to be resubmitted. Sherry Mcneill RN * Telephone Encounter - Nadya Tong RN - 04/14/2024 2:11 PM EDT Prior authorization submitted to [facility] for Omnipod 5 G6 PODS (GEN 5). [place]: [id number] Nadya Tong RN April 14, 2024 2:12 PM documented in this encounterSalem [facility] Medical Center09-25-2024 Telephone encounter Note * Telephone Encounter - Juan Carlos Candelario MD - 04/14/2024 3:52 PM EDT Message sent back to Endo informing them that these forms are to be completed by the provider managing her diabetes. [facility] Work Phone: [phone] Miscellaneous Notes* Telephone Encounter - Juan Carlos Candelario MD - 04/14/2024 3:52 PM EDT Message sent back to End[facility] informing them that these forms are to be completed by the provider managing her diabetes. * Telephone Encounter - Nadya Tong RN - 04/14/2024 12:57 PM EDT Pt in office today for diabetic education. Requesting BM form be completed by 04/19/2024. Please call when ready to be picked up: . Thank you! Nadya Tong RN April 14, 2024 12:58 PM * Telephone Encounter - Jazzmine Gonzalez MA - 04/14/2024 8:50 AM EDT Upon review of the chart Dr. Cui signed this form 3 years ago. Patient just recently starting seeing Endo in January. Jazzmine Gonzalez MA * Telephone Encounter - Srini Gerber LPN - 04/14/2024 8:27 AM EDT Received Request for statement of physician form from [facility]. This was forwarded to pcp from [facility] for pcp to complete d/t pcp manages pt's diabetes and has only been seen once in [facility]. Please contact ptonce form has been completed. Srini Gerber LPN documented in this encounterSalem [facility] Center09-25-2024 Telephone encounter Note * Telephone Encounter - Nadya Tong RN - 04/14/2024 2:11 PM EDT Prior authorization submitted to [facility] for Omnipod 5 G6 PODS (GEN 5). [place]: [id number] Nadya Tong RN April 14, 2024 2:12 PM [facility] [facility] Note* Telephone Encounter - Veronika Dorado APRN.LIZZY - 04/14/2024 1:04 PM EDT Patient INSULIN LISPRO was filled for her OMNIPOD 12/31/2023 [facility]09-25-2024 Miscellaneous Notes* Telephone Encounter - Veronika Dorado APRN.LIZZY - 04/14/2024 1:04 PM EDT Patient INSULIN LISPRO was filled for her OMNIPOD 12/31/2023 * Telephone Encounter - Jackeline Shukla RN - 04/14/2024 12:41 PM EDT Patient reports she has been having issues with getting Omnipod5 covered. Has been out of pods for several weeks now. She has been using her back up insulin but is almost out of rapid acting insulin and does not have refills on her Glargine. [facility] Telephone encounter Note * Telephone Encounter - Nadya Tong RN - 04/14/2024 12:57 PM EDT Pt in office today for diabetic education. Requesting BMV form be completed by 04/19/2024. Please call when ready to be picked up: . Thank you! Nadya Tong RN April 14, 2024 12:58 PM [facility]09-25-2024 Telephone encounter Note* Telephone Encounter - Jackeline Shukla RN - 04/14/2024 12:41 PM EDT Patient reports she has been having issues with getting Omnipod5 covered. Has been out of pods for several weeks now. She has been using her back up insulin but is almost out of rapid acting insulin and does not have refills on her Glargine. [facility] Work Phone: [phone] 227-191409-25-2024 NoteHNO ID: [id number] Author: JACKELINE SHUKLA RN Service: ? Author Type: Registered Nurse Type: Progress Notes Filed: 04/14/2024 15:28 Note Text: DIABETES CARE AND EDUCATION VISIT Location: [place] Type of visit: In person individual PATIENT'S MAIN CONCERN TODAY: I'm not sure Support person present for education today: parent Cognitive ability: Alert and oriented Motivation to learn: Interested Learning barriers identified by educator: none Method of instruction: written, verbal, and demonstration DIABETES FINDINGS: out of Omnipod 5 pods - using back up insulins instead as she waits for it to be filled. License suspended at this time and she is between different jobs, so currently does not have any insurance. Monitoring: Dexcom G6 Medications: Basaglar - 18 units at bedtime, Novolog - 15 with meals HANDOUTS: Healthy You: Survival Skills and Healthy You: Planning Healthy Meals LEARNING RESPONSE: Taking medications: Demonstrated understanding/competency today or at previous visit POSSIBLE FUTURE TOPICS: 1. DIABETES CARE AND EDUCATION PLAN: Education completed and annual diabetes education follow-up visit recommended Time Spent (Minutes): 30 This visit note will be communicated to the healthcare provider via access to shared medical record. SIGNATURE: Jackelnie Shukla RN PATIENT NAME: Kalie Desir DATE: April 14, 2024 TIME: 12:28 [facility]09-25-2024 History of Present illness Narrative* Jackeline Shukla RN - 04/14/2024 12:26 PM EDT DIABETES CARE AND EDUCATION VISIT Location: [place] Type of visit: In person individual PATIENT'S MAIN CONCERN TODAY: I'm not sure Support person present for education today: parent Cognitive ability: Alert and oriented Motivation to learn: Interested Learning barriers identified by educator: none Method of instruction: written, verbal, and demonstration DIABETES FINDINGS: out of Omnipod 5 pods - using back up insulins instead as she waits for it to befilled. License suspended at this time and she is between different jobs, so currently does not have any insurance. Monitoring: Dexcom G6 Medications: Basaglar - 18 units at bedtime, Novolog - 15 with meals HANDOUTS: Healthy You: Survival Skills and Healthy You: Planning Healthy Meals LEARNING RESPONSE: Taking medications: Demonstrated understanding/competency today or at previous visit POSSIBLE FUTURE TOPICS: 1. DIABETES CARE AND EDUCATION PLAN: Education completed and annual diabetes education follow-up visit recommended Time Spent (Minutes): 30 This visit note will be communicated to the healthcare provider via access to shared medical record. SIGNATURE: Jackeline Shukla RN PATIENT NAME: Kalie Desir DATE: April 14, 2024 TIME: 12:28 PM documented [facility] Telephone encounter Note * Telephone Encounter - Jazzmine Gonzalez MA - 04/14/2024 8:50 AM EDT Upon review of the chart Dr. Cui signed this form 3 years ago. Patient just recently starting seeing Endo in January. Jazzmine Gonzalez MA [facility]09-25-2024 Telephone encounter Note* Telephone Encounter - Srini Gerber LPN - 04/14/2024 8:27 AM EDT Received Request for statement of physician form from BMV. This was forwarded to pcp from Endo for pcp to complete d/t pcp manages pt's diabetes and has only been seen once in Endo. Please contact ptonce form has been completed. Srini Gerber LPN [facility]09-23-2024 Telephone encounter Note* Telephone Encounter - Nadya Tong RN - 04/12/2024 11:40 AM EDT Pt dropped off 2 copies of BMV Forms for provider to fill out. This will be required since Pt is a type 1 diabetes in order to retain her driving privileges. Veronika Dorado CNP is not back in [place] office until 04/14/2024. Placed on provider's desk awaiting signature. Will call Pt once c ompleted. Nadya Tong RN April 12, 2024 11:44 AM [facility]09-23-2024 Miscellaneous Notes* Telephone Encounter - Nadya Tong RN - 04/12/2024 11:40 AM EDT Pt dropped off 2 copies of BMV Forms for provider to fill out. This will be required since Pt is a type 1 diabetes in order to retain her driving privileges. Veronika Dorado CNP is not back in [place] office until 04/14/2024. Placed on provider's desk awaiting signature. Will call Pt once c ompleted. Nadya Tong RN April 12, 2024 11:44 AM documented [facility] Telephone encounter Note * Telephone Encounter - Kaylen Shaffer MA - 04/01/2024 3:27 PM EDT Please help patient schedule with educator. Kaylen Shaffer MA [facility]09-12-2024 Miscellaneous Notes* Telephone Encounter - Kaylen Shaffer MA - 04/01/2024 3:27 PM EDT Please help patient schedule with educator. Kaylen Shaffer MA [facility]20[facility] Telephone encounter Note * Telephone Encounter - Sherry Mcneill RN - 04/01/2024 2:49 PM EDT Patient phones requesting refills as follows: Requested Prescriptions Pending Prescriptions Disp Refills OMNIPOD 5 G6 PODS, GEN 5, crtg Please review and advise. Sherry Mcneill RN [facility]09-12-2024 Miscellaneous Notes* Telephone Encounter - Sherry Mcneill RN - 04/01/2024 2:49 PM EDT Patient phones requesting refills as follows: Requested Prescriptions Pending Prescriptions Disp Refills OMNIPOD 5 G6 PODS, GEN 5, crtg Please review and advise. Sherry Mcneill RN documented in [facility] encounterSal[facility]24 History of Present illness Narrative* Jolynn Prieto RT(R) - 03/25/2024 2:30 PM EDT Radiology Service Progress Note PATIENT NAME: Kalie Desir DATE OF SERVICE: March 25, 2024 TIME: 2:24 PM PATIENT IDENTITY VERIFICATION COMPLETED USING TWO (2) IDENTIFIERS: Name and Date of confirmedby patient verbally. FALL SCREENING: Has the patient had 2 falls in the last year or 1 fall with injury or currently using an Ambulatory Assistive Device (Walker, Cane, Wheelchair, Crutches, etc.)? No PATIENT GENDER DATA: Female. status: : No status: NO. PATIENT RELEVANT IMPLANT DATA REVIEWED: Not Applicable PATIENT PRESENTS WITH AN IMPLANTABLE OR ATTACHED SEMICONDUCTOR PACKAGES SEALER: [facility] RAD[facility]OLOGY DEPARTMENT: General X-ray: Exam(s) Completed: Spine X-Ray(s): Lumbar AP / LAT / L5-S1 Upper Extremity X-Ray(s): Wrist, right PERIPHERAL IV DATA: Not applicable SIGNED BY: RT Bessie(R) March 25, 2024 2:24 PM documented in this encounterSalem [facility]09-05-2024 NoteHNO ID: [id number] Author: JOLYNN PRIETO RT(R) Service: Radiology Author Type: Technologist Type: Progress Notes Filed: 03/25/2024 14:39 Note Text: Radiology Service Progress Note PATIENT NAME: Kalie Desir DATE OF SERVICE: March 25, 2024 TIME: 2:24 PM PATIENT IDENTITY VERIFICATION COMPLETED USING TWO (2) IDENTIFIERS: Name and Date of confirmed by patient verbally. FALL SCREENING: Has the patient had 2 falls in the last year or 1 fall with injury or currently using an Ambulatory Assistive Device (Walker, Cane, Wheelchair, Crutches, etc.)? No PATIENT GENDER DATA: Female. status: : No status: NO. PATIENT RELEVANT IMPLANT DATA REVIEWED: Not Applicable PATIENT PRESENTS WITH AN IMPLANTABLE OR ATTACHED SEMICONDUCTOR PACKAGES SEALER: Yes [facility] RADIOLOGY DEPARTMENT: General X-ray: Exam(s) Completed: Spine X-Ray(s): Lumbar AP / LAT / L5-S1 Upper Extremity X-Ray(s): Wrist, right PERIPHERAL IV DATA: Not applicable SIGNED BY: RT Bessie(R) March 25, 2024 2:24 [facility]09-05-2024 NoteHNO ID: [id number] Author: ROSA ISELA GONZALEZ APRN.CHANGER FIXER Service: ? Author Type: Nurse Practitioner Type: Progress Notes Filed: 03/25/2024 15:10 Note Text: Subjective Patient was moving furniture 3 days ago and noticed her back started hurting on both sides and then a day later her right wrist was hurting. The history is provided by the patient. No computer language coder was used. Back Pain Review of Systems Musculoskeletal: Positive for back pain. Objective Physical Exam Constitutional: Appearance: Normal appearance. Pulmonary: Effort: Pulmonary effort is normal. Musculoskeletal: Arms: Comments: Tender in the area marked above. Neurological: Mental Status: She is alert. PAST MEDICAL HISTORY No date: Asthma 08/07/2016: Constipation No date: Diabetes mellitus type 1 (HCC) 02/15/2019: Hepatitis A PAST SURGICAL HISTORY No date: ADENOIDECTOMY PRIMARY Comment: age 18 month No date: MYRINGOTOMY W TUBE,BILATERAL(2) Comment: age 18 months 07/06/2014: NEXPLANON INSERTION ALLERGIES Melatonin, Penicillins, and Sulfatrim Ds MEDICATIONS etonogestrel (NEXPLANON) subdermal implant 68 mg 1 Each by SUBDERMAL route as directed. hydrOXYzine pamoate (VISTARIL) 25 mg capsule daily at bedtime. insulin aspart U-100 (NOVOLOG) 100 unit/mL Inject 100 Units subcutaneously as needed. omnipod insulin glargine 100 unit/mL (3 mL) 15 Units. insulin lispro 100 unit/mL injection INJECT 100 UNITS SUBCUTANEOUSLY EVERY DAY OMNIPOD 5 G6 PODS, GEN 5, crtg CHANGE EVERY 48-72 HOURS potassium chloride ER (KLOR-CON) 20 mEq tablet Take 20 mEq by mouth as needed. DEXCOM G6 SENSOR cooper as directed. DEXCOM G6 TRANSMITTER cooper as directed. fluticasone (FLONASE) 50 mcg/actuation nasal spray Use 2 Sprays in each nostril once daily. Rinse mouth after use. albuterol HFA (VENTOLIN HFA) 90 mcg/actuation inhaler Inhale 2 Puffs as instructed every 4 hours as needed. etonogestrel (NEXPLANON) subdermal implant 68 mg ONCE Alcohol Swabs (ALCOHOL PREP PADS) padm Apply 1 application to affected area every 4 hours as needed (blood glucose check). Inhalational Spacing Device (AEROCHAMBER MASK LARGE) spcr 1 Device as needed. FAMILY HISTORY Problem Relation Age of Onset Hypertension Mother None Father Allergies Sister None Maternal Grandmother None Maternal Grandfather Diabetes Paternal Grandmother Hypertension Paternal Grandfather Social History Tobacco Use Smoking status: Never Passive exposure: Yes Smokeless tobacco: Never Tobacco comments: parents inside/outside Vaping Use Vaping status: Never Used Substance Use Topics Alcohol use: Yes Comment: occasional Drug use: Yes Types: Marijuana Comment: Hx of marijuana ASSESSMENT/PLAN: 1. Pain - ICD9: 780.96, ICD10: R52 - XR WRIST INJURY 4V PA/LAT/OBL/SCAPH RIGHT - XR LUMBAR GENERAL 3V AP/LAT/L5-S1 Acute findings on x-ray. - CYCLOBENZAPRINE 10 MG TABLET Patient was educated about proper use of medication and supportive therapy patient was educated that medication will make her drowsy not to drive or operate machinery on it. Patient will give it a few weeks and follow-up with primary care if signs and symptoms seem to be getting worse not better. Rosa Isela Gonzalez APRN.[facility]09-05-2024 History of Present illness Narrative* Rosa Isela Gonzalez APRN.[facility] - 03/25/2024 2:18 PM EDT Images from the original note were not included. Subjective Patient was moving furniture 3 days ago and noticed her back started hurting on both sides and thena day later her right wrist was hurting. The history is provided by the patient. No computer language coder was used. Back Pain Review of Systems Musculoskeletal: Positive for back pain. Objective Physical Exam Constitutional: Appearance: Normal appearance. Pulmonary: Effort: Pulmonary effort is normal. Musculoskeletal: Arms: Comments: Tender in the area marked above. Neurological: Mental Status: She is alert. PAST MEDICAL HISTORY No date: Asthma 08/07/2016: Constipation No date: Diabetes mellitus type 1 (HCC) 02/15/2019: Hepatitis A PAST SURGICAL HISTORY No date: ADENOIDECTOMY PRIMARY <AGE 10 Comment: age 18 month No date: MYRINGOTOMY W TUBE,BILATERAL(2) Comment: age 18 months 07/06/2014: NEXPLANON INSERTION ALLERGIES Melatonin, Penicillins, and Sulfatrim Ds MEDICATIONS etonogestrel (NEXPLANON) subdermal implant 68 mg 1 Each by SUBDERMAL route as directed. hydrOXYzine pamoate (VISTARIL) 25 mg capsule daily at bedtime. insulin aspart U-100 (NOVOLOG) 100 unit/mL Inject 100 Units subcutaneously as needed. omnipod insulin glargine 100 unit/mL (3 mL) 15 Units. insulin lispro 100 unit/mL injection INJECT 100 UNITS SUBCUTANEOUSLY EVERY DAY OMNIPOD 5 G6 PODS, GEN 5, crtg CHANGE EVERY 48-72 HOURS potassium chloride ER (KLOR-CON) 20 mEq tablet Take 20 mEq by mouth as needed. DEXCOM G6 SENSOR cooper as directed. DEXCOM G6 TRANSMITTER cooper as directed. fluticasone (FLONASE) 50 mcg/actuation nasal spray Use 2 Sprays in each nostril once daily. Rinse mouth after use. albuterol HFA (VENTOLIN HFA) 90 mcg/actuation inhaler Inhale 2 Puffs as instructed every 4 hours asneeded. etonogestrel (NEXPLANON) subdermal implant 68 mg ONCE Alcohol Swabs (ALCOHOL PREP PADS) padm Apply 1 application to affected area every 4 hours as needed(blood glucose check). Inhalational Spacing Device (AEROCHAMBER MASK LARGE) spcr 1 Device as needed. FAMILY HISTORY Problem Relation Age of Onset Hypertension Mother None Father Allergies Sister None Maternal Grandmother None Maternal Grandfather Diabetes Paternal Grandmother Hypertension Paternal Grandfather Social History Tobacco Use Smoking status: Never Passive exposure: Yes Smokeless tobacco: Never Tobacco comments: parents inside/outside Vaping Use Vaping status: Never Used Substance Use Topics Alcohol use: Yes Comment: occasional Drug use: Yes Types: Marijuana Comment: Hx of marijuana ASSESSMENT/PLAN: 1. Pain - ICD9: 780.96, ICD10: R52 - XR WRIST INJURY 4V PA/LAT/OBL/SCAPH RIGHT - XR LUMBAR GENERAL 3V AP/LAT/L5-S1 Acute findings on x-ray. - CYCLOBENZAPRINE 10 MG TABLET Patient was educated about proper use of medication and supportive therapy patient was educated that medication will make her drowsy not to drive or operate machinery on it. Patient will give it a few weeks and follow-up with primary care if signs and symptoms seem to be getting worse not better. Rosa Isela Gonzalez APRN.LIZZY documented in this encounterSalem [facility] Center08-21-2024 Instructions* Patient Instructions* Frances Clayton LPN - 03/10/2024 10:19 AM EDT NEXPLANON PATIENT EDUCATION You may remove dressing in 24 hours. Expect some bruising around insertion site. You may take over the counter pain medication (i.e. Tylenol, motrin, advil, etc) if you have discomfort. Call your provider with excessive bruising or pain. Continue to use condoms for STD prevention. You should use backup contraception for 7 days to prevent . documented in this encounterSalem [facility] Medical Center08-21-2024 NoteHNO ID: [id number] Author: EVELYN CARR MD Service: ? Author Type: Physician Type: Progress Notes Filed: 03/10/2024 11:10 Note Text: Kalie is a 23 year old who presents for Nexplanon removal for scheduled 3 year removal UNIVERSAL PROTOCOL / SAFETY CHECKLIST Procedure to be Performed: nexplanon removal TECHNIQUE: Patient placed in supine position with left arm bent at the elbow and placed over the head. Skin cleansed with betadine. 1mL of 1% lidocaine with epi injected subQ along insertion site. Scalpel used to made a 5mm stab incision superficially at distal end of Nexplanon. Device removed under sterile technique with a small hemostat. Sterile pressure dressing applied. AANDP: 23 year old here for Nexplanon removal Nexplanon removed intact without difficulty. The patient was instructed to remove the dressing after 24 hours. Contraceptive plans nexplanon Evelyn Carr MD Kalie is a 23 year old patient who presents for Nexplanon insertion. Patient's last menstrual period was 07/21/2023 (approximate). VITALS: LMP 07/21/2023 test: negative Nexplanon lot #: [id number] Exp date: 10/2025 UNIVERSAL PROTOCOL / SAFETY CHECKLIST Procedure to be Performed: nexplanon insertion Sign In: A Moment of CARE was completed. Personnel directly involved with the procedure wore the appropriate PPE (Personal Protective Equipment). Patient/Surrogate Stated/Verified: PATIENT VERIFIED(optional for EMERGENT procedures): Patient name, Date of , Relevant allergies, and The intended procedure Time Out Communication: Intended patient and procedure match the source documents. Consent documented and matches the intended procedure. Sign Out: SIGN OUT (optional for EMERGENT procedures): No specimen collected. All instruments, equipment, possible retained foreign bodies accounted for. Post-procedure follow-up management communicated and Plan of Care Visit completed when applicable. TECHNIQUE: Patient placed in supine position with left) bent at the elbow and placed over the head. Skin cleansed with betadine. 1 mL of 1% lidocaine with 1:100,000 epi injected subQ along insertion site. Nexplanon martin inserted under sterile technique. After insertion by the provider, the martin was palpable under the skin by both patient and provider. Steristrips and sterile pressure dressing applied. AANDP: Nexplanon inserted without complications. Patient user card was filled out and given to the patient. The patient was instructed to remove the dressing after 24 hours. Advised to use backup contraception for 7 days. Evelyn Carr MD [facility]08-21-2024 History of Present illness Narrative* Evelyn Carr MD - 03/10/2024 10:16 AM EDT Kalie is a 23 year old who presents for Nexplanon removal for scheduled 3 year removal UNIVERSAL PROTOCOL / SAFETY CHECKLIST Procedure to be Performed: nexplanon removal TECHNIQUE: Patient placed in supine position with left arm bent at the elbow and placed over the head. Skin cleansed with betadine. 1mL of 1% lidocaine with epi injected subQ along insertion site. Scalpel used to made a 5mm stab incision superficially at distal end of Nexplanon. Device removed under sterile technique with a small hemostat. Sterile pressure dressing applied. A&P: 23 year old here for Nexplanon removal Nexplanon removed intact without difficulty. The patient was instructed to remove the dressing after 24 hours. Contraceptive plans nexplanon Evelyn Carr MD Kalie is a 23 year old patient who presents for Nexplanon insertion. Patient's last menstrual period was 07/21/2023 (approximate). VITALS: LMP 07/21/2023 test: negative Nexplanon lot #: [id number] Exp date: 10/2025 UNIVERSAL PROTOCOL / SAFETY CHECKLIST Procedure to be Performed: nexplanon insertion Sign In: A Moment of CARE was completed. Personnel directly involved with the procedure wore the appropriate PPE (Personal Protective Equipment). Patient/Surrogate Stated/Verified: PATIENT VERIFIED(optional for EMERGENT procedures): Patient name, Date of , Relevant allergies, and The intended procedure Time Out Communication: Intended patient and procedure match the source documents. Consent documented and matches the intended procedure. Sign Out: SIGN OUT (optional for EMERGENT procedures): No specimen collected. All instruments, equipment, possible retained foreign bodies accounted for. Post-procedure follow-up management communicated and Plan of Care Visit completed when applicable. TECHNIQUE: Patient placed in supine position with left) bent at the elbow and placed over the head. Skin cleansed with betadine. 1 mL of 1% lidocaine with 1:100,000 epi injected subQ along insertion site. Nexplanon martin inserted under sterile technique. After insertion by the provider, the martin was palpable under the skin by both patient and provider. Steristrips and sterile pressure dressing applied. A&P: Nexplanon inserted without complications. Patient user card was filled out and given to the patient. The patient was instructed to remove the dressing after 24 hours. Advised to use backup contraception for 7 days. Evelyn Carr MD l documented in this encounterSalem [facility] Center08-12-2024 NoteHNO ID: [id number] Author: EVELYN CARR MD Service: ? Author Type: Physician Type: Progress Notes Filed: 03/01/2024 11:46 Note Text: Material Combiner offered: Patient accepts, visit chaperoned by nurse. Kalie is a 23 year old who presents for an annual gynecologic exam with complaints including occ yeast infections and noting that her Nexplanon was inserted 04-13-20 and accordingly is past due for replacement. Menses: cycles rarely and November and February were the last two. Type one diabetic diagnosed at age 9 and with a HgbA1C of ~ 11 Ciarra Discount Total Savings: $ [facility] extends a ciarra discount to all qualifying patients. This reduces your estimated cost and estimated responsibility. -7 days duration. Contraception: Nexplanon HPV vaccine: Yes Last Pap: this is her first HPV: negative History of abnormal pap: No Last mammogram: never Sexually active: Yes Last sexual contact: 1 mo ago. OB History T0 L0 SAB0 IAB0 Ectopic0 Multiple0 Live Births0 Drum Sander Offbearer History LMP: 07/21/2023 (Approximate), Implant Age at Menarche: Age at First : Age at Menopause: Drum Sander Offbearer History Comments: Sexual Activity: Yes; Female, Male Contraception: Implant PAST MEDICAL HISTORY No date: Asthma 08/07/2016: Constipation No date: Diabetes mellitus type 1 (HCC) 02/15/2019: Hepatitis APAST SURGICAL HISTORY No date: ADENOIDECTOMY PRIMARY Comment: age 18 month No date: MYRINGOTOMY W TUBE,BILATERAL(2) Comment: age 18 months 07/06/2014: NEXPLANON INSERTION FAMILY HISTORY Problem Relation Age of Onset Hypertension Mother None Father Allergies Sister None Maternal Grandmother None Maternal Grandfather Diabetes Paternal Grandmother Hypertension Paternal Grandfather SOCIAL HISTORY Social History Tobacco Use Smoking status: Never Passive exposure: Yes Smokeless tobacco: Never Tobacco comments: parents inside/outside Vaping Use Vaping Use: Never used Substance Use Topics Alcohol use: Yes Comment: occasional Drug use: Yes Types: Marijuana Comment: Hx of marijuana REVIEW OF SYSTEMS Abdomen: No abdominal pain, nausea, vomiting, diarrhea, or constipation. No bloating, early satiety, indigestion, or increased flatulence. Bladder: No dysuria, gross hematuria, urinary frequency, urinary urgency, or incontinence. Breast: No breast lumps, nipple d/c, overlying skin changes, redness or skin retraction. Allergies and current medication updated:Yes EXAM: BP 120/72 Ht 4' 10.661 (1.49m) Wt 153 lb (69.4kg) LMP 07/21/2023 BMI 31.26 kg/(m2). GENERAL: pleasant, female in no apparent distress HEENT: Normocephalic, atraumatic, mucus membranes moist, and no lesions NECK: Supple, full range of motion, no adenopathy, and thyroid normal DERMATOLOGY: Normal, without lesions, non-icteric, and non-hirsute BREAST: soft, non-tender, symmetric, no dominant mass, normal nipple-areolar complex, no lymphadenopathy, and no nipple discharge CHEST: Normal inspiratory effort ABDOMEN: soft, non-tender, and no masses PELVIC: external genitalia normal, normal Bartholin's glands, urethra, [place]'s glands, no vulvar lesions, no cervical lesions, good vaginal support, physiologic discharge present, normal appearing perineal body and perianal region BIMANUAL: uterus normal size, shape and consistency, no adnexal masses, and non-tender RECTOVAGINAL: deferred. ASSESSMENT/PLAN: 1) Health maintenance: Pap done with reflex HPV. 2) Contraception: Nexplanon. Contraceptive options reviewed and information provided. NEEDS REMOVED AND REPLACED LENCHO 3) STD screening: Accepted STD check for Gonorrhea and Chlamydia. 4) Follow up Nexplanon r/marco year or sooner as needed Evelyn Carr [facility]08-12-2024 History of Present illness Narrative* Evelyn Carr MD - 03/01/2024 11:03 AM EDT Material Combiner offered: Patient accepts, visit chaperoned by nurse. Kalie is a 23 year old who presents for an annual gynecologic exam with complaints including occ yeast infections and noting that her Nexplanon was inserted 04-13-20 and accordingly is past due for replacement. Menses: cycles rarely and November and February were the last two. Type one diabetic diagnosed at age 9 and with a HgbA1C of ~ 11 Ciarra Discount Total Savings: $ [facility] extends a ciarra discount to all qualifying patients. This reduces your estimatedcost and estimated responsibility. -7 days duration. Contraception: Nexplanon HPV vaccine: Yes Last Pap: this is her first HPV: negative History of abnormal pap: No Last mammogram: never Sexually active: Yes Last sexual contact: 1 mo ago. OB History T0 L0 SAB0 IAB0 Ectopic0 Multiple0 Live Births0 Drum Sander Offbearer History LMP: 07/21/2023 (Approximate), Implant Age at Menarche: Age at First : Age at Menopause: Drum Sander Offbearer History Comments: Sexual Activity: Yes; Female, Male Contraception: Implant PAST MEDICAL HISTORY No date: Asthma 08/07/2016: Constipation No date: Diabetes mellitus type 1 (HCC) 02/15/2019: Hepatitis APAST SURGICAL HISTORY No date: ADENOIDECTOMY PRIMARY <AGE 12 Comment: age 18 month No date: MYRINGOTOMY W TUBE,BILATERAL(2) Comment: age 18 months 07/06/2014: NEXPLANON INSERTION FAMILY HISTORY Problem Relation Age of Onset Hypertension Mother None Father Allergies Sister None Maternal Grandmother None Maternal Grandfather Diabetes Paternal Grandmother Hypertension Paternal Grandfather SOCIAL HISTORY Social History Tobacco Use Smoking status: Never Passive exposure: Yes Smokeless tobacco: Never Tobacco comments: parents inside/outside Vaping Use Vaping Use: Never used Substance Use Topics Alcohol use: Yes Comment: occasional Drug use: Yes Types: Marijuana Comment: Hx of marijuana REVIEW OF SYSTEMS Abdomen: No abdominal pain, nausea, vomiting, diarrhea, or constipation. No bloating, early satiety, indigestion, or increased flatulence. Bladder: No dysuria, gross hematuria, urinary frequency, urinary urgency, or incontinence. Breast: No breast lumps, nipple d/c, overlying skin changes, redness or skin retraction. Allergies and current medication updated:Yes EXAM: BP 120/72 Ht 4' 10.661 (1.49m) Wt 153 lb (69.4kg) LMP 07/21/2023 BMI 31.26 kg/(m^2). GENERAL: pleasant, female in no apparent distress HEENT: Normocephalic, atraumatic, mucus membranes moist, and no lesions NECK: Supple, full range of motion, no adenopathy, and thyroid normal DERMATOLOGY: Normal, without lesions, non-icteric, and non-hirsute BREAST: soft, non-tender, symmetric, no dominant mass, normal nipple-areolar complex, no lymphadenopathy, and no nipple discharge CHEST: Normal inspiratory effort ABDOMEN: soft, non-tender, and no masses PELVIC: external genitalia normal, normal Bartholin's glands, urethra, [place]'s glands, no vulvar lesions, no cervical lesions, good vaginal support, physiologic discharge present, normal appearing perineal body and perianal region BIMANUAL: uterus normal size, shape and consistency, no adnexal masses, and non-tender RECTOVAGINAL: deferred. ASSESSMENT/PLAN: 1) Health maintenance: Pap done with reflex HPV. 2) Contraception: Nexplanon. Contraceptive options reviewed and information provided. NEEDS REMOVEDAND REPLACED LENCHO 3) STD screening: Accepted STD check for Gonorrhea and Chlamydia. 4) Follow up Nexplanon r/marco year or sooner as needed Evelyn Carr [facility] History of Present illness Narrative* Veronika Dorado, STOCK CONTROLLER.CHANGER FIXER - 02/04/2024 10:15 AM EDT OFFICE VISIT PROGRESS NOTE CC Kalie Desir is a 23 year old who presents today for blood sugar review, insulin dosing adjust. HPI PATIENT OF DR. WILKS, ENDOCRINE Diagnosed with diabetes mellitus type 1, ~ age 9 Last endocrine OV 08/03/2020 with MARIA DOLORES AGOSTO HPI 02/04/2024 Not seen for 3 years in ENDO Cannot afford 'dexcom sensor' is NOT using pump closed loop OMNIPOD PUMP for insulin injections only Patient is not counting her carbs accurately Sts that she was seeing MARIA DOLORES (Dr Chow) [facility] but was dropped as a patient due to no show//compliance issues Did see [facility] MARIA DOLORES initially DM1 since age 9 Admits does not understand carb counting, but is just now using stalin to count carbs GIO CHOW -For past 4 months Has been using OMNIPOD/DEXCOM, no sensor for past week due to co pay and cannot afford Is getting her pump supplies through [employer] program assistance Is working with [employer] to get on their asst program Has been using fingersticks for the past 4 days due to no sensor Sts her blood sugars are 150 all day when she has closed loop system in place A1C for past 3 months is 10.1% OMNIPOD settings reviewed manually CURRENT DM MEDS LISPRO via OMNIPOD insulin pump GEN 5, not using DEXCOM (SENSOR NONE FOR 4 DAYS) BASAL: 00 - 1.35 I/C ratio 1 unit for 6 grams of carbs ISF 26 SMBG Type of Monitor: Other FINGERSTICKS Frequency of Monitoring: NOT USING times a day 4 DAYS BG Values: Breakfast: 264 Lunch: 250 Dinner: 297 Bed-time: 152 Values over past week: Highest ; Lowest Hypoglycemia: no Diet: No specific diet regimen Exercise: WORK only DM REVIEW OF SYSTEMS Last Eye Exam : 2 years ago, is scheduled for February 09, 2024 Last Podiatry Exam: none Cardiorespiratory: negative, denies chest pain, pressure Claudication: no Dyslipidemia: No High Blood Pressure: No CURRENT LABS Latest Ref Rng 12/24/2023 Glucose 74 - 99 mg/dL 353 (H) BUN 7 - 21 mg/dL 17 Creatinine 0.58 - 0.96 mg/dL 0.54 (L) Sodium 136 - 144 mmol/L 136 Potassium 3.7 - 5.1 mmol/L 4.8 Chloride 98 - 107 mmol/L 102 CO2 22 - 30 mmol/L 23 Anion Gap 8 - 15 mmol/L 11 eGFR >=60 mL/min/1.73m 131 Total Cholesterol, Nonfasting <200 mg/dL 175 Triglycerides, Nonfasting <150 mg/dL 67 HDL Cholesterol, Nonfasting >39 mg/dL 81 LDL Cholesterol, Nonfasting <100 mg/dL 81 Non HDL Cholesterol, Nonfasting <130 mg/dL 94 VLDL Cholesterol, Nonfasting <30 mg/dL 13 Total Chol/HDL Ratio, Nonfasting <5.10 mg/dL 2.16 LDL/HDL Ratio, Nonfasting <2.54 mg/dL 1.00 Creatinine, Ur Random (UCRR) 20.0 - 300.0 mg/dL 36.3 Albumin, Urine Random mg/L <12.0 Albumin/Creat Ratio -- Hemoglobin A1C 4.3 - 5.6 % 10.1 (H) Estimated Average Glucose mg/dL 243 Recent Labs 05/10/15 1500 06/07/15 1559 01/15/16 1717 08/22/16 1420 03/01/19 1305 07/24/20 1543 08/03/20 0810 12/24/23 1024 12/24/23 1029 ALT -- -- -- -- 172* 12 -- 10 -- AST -- -- -- -- 47* 11* -- 17 -- UCRR -- -- -- -- -- -- -- -- 36.3 UALBR -- -- -- -- -- -- -- -- <12.0 TSH 1.370 -- 1.420 -- 1.640 -- -- -- -- TPROT -- -- -- -- 7.1 7.5 -- 7.1 -- ALB -- -- -- -- 3.4* 4.8 -- 4.4 -- CA -- -- -- -- 9.0 9.1 -- 9.9 -- TBILI -- -- -- -- 3.5* 0.4 -- 0.5 -- ALKPHOS -- -- -- -- 215* 103 -- 79 -- GLUC -- -- -- -- 594* 245* -- 353* -- BUN -- -- -- -- 10 11 -- 17 -- CREAT -- -- -- -- 0.35* 0.42* -- 0.54* -- NA -- -- -- -- 129* 135* -- 136 -- K -- -- -- -- 4.5 3.3* -- 4.8 -- CHLOR -- -- -- -- 94* 105 -- 102 -- CO2 -- -- -- -- 23 13* -- 23 -- ANION -- -- -- -- 12 17 -- 11 -- EGFROTH -- -- -- -- >60 >60 -- 131 -- HBA1C -- < > -- < > 11.6* -- 12.9* 10.1* -- < > = values in this interval not displayed. Recent Labs 05/10/14 1538 11/17/14 1545 02/07/15 1142 06/07/15 1559 09/13/15 1643 01/11/16 1446 03/01/19 1305 08/03/20 0810 12/24/23 1024 TG 101 -- 70 -- -- -- -- -- 67 CHOL 133 -- 145 -- -- -- -- -- 175 HDL 56 -- 57 -- -- -- -- -- 81 VLDL 20 -- 14 -- -- -- -- -- 13 LDL 57 -- 74 -- -- -- -- -- 81 FASTTIME NONFASTING -- FASTING -- -- -- -- -- -- TCHDL 2.38 -- 2.54 -- -- -- -- -- 2.16 LDLHDL 1.02 -- 1.30 -- -- -- -- -- 1.00 NONHDL 77* -- 88 -- -- -- -- -- 94 HBA1C 7.5* < > 8.3* < > 8.0* < > 11.6* 12.9* 10.1* HBA0 169 < > 192 < > 183 -- 286 -- 243 < > = values in this interval not displayed. PAST MEDICAL HISTORY Diagnosis Date Asthma Constipation 08/07/2016 Diabetes mellitus type 1 (HCC) Hepatitis A 02/15/2019 PAST SURGICAL HISTORY Procedure Laterality Date ADENOIDECTOMY PRIMARY <AGE 12 age 18 month MYRINGOTOMY W TUBE,BILATERAL(2) age 18 months NEXPLANON INSERTION 07/06/2014 FAMILY HISTORY Problem Relation Age of Onset [...] Yes Types: Marijuana Comment: Hx of marijuana Current Outpatient Medications Medication Sig DEXCOM G6 SENSOR cooper as directed. DEXCOM G6 TRANSMITTER cooper as directed. fluticasone (FLONASE) 50 mcg/actuation nasal spray Use 2 Sprays in each nostril once daily. Rinse mouth after use. albuterol HFA (VENTOLIN HFA) 90 mcg/actuation inhaler Inhale 2 Puffs as instructed every 4 hours asneeded. etonogestrel (NEXPLANON) subdermal implant 68 mg ONCE Alcohol Swabs (ALCOHOL PREP PADS) padm Apply 1 application to affected area every 4 hours as needed(blood glucose check). Inhalational Spacing Device (AEROCHAMBER MASK LARGE) spcr 1 Device as needed. (Patient not taking: Reported on 12/26/2021 ) No current facility-administered medications for this visit. ALLERGIES Allergen Reactions Melatonin Diarrhea Penicillins Rash Sulfatrim Ds Vomiting REVIEW OF SYSTEMS - POSITIVES IN BOLD GENERAL:No weight loss, malaise or fevers HEENT:Negative for frequent or significant headaches, No changes in hearing or vision, no nose bleeds or other nasal problems NECK:Negative for lumps, goiter, pain and significant neck swelling RESPIRATORY: Negative for cough, hemoptysis, wheezing, COPD, dyspnea or shortness of breath CARDIOVASCULAR: Negative for chest pain, leg swelling, hypertension, CHF or palpitations PHYSICAL EXAMINATION: BP 122/74 Pulse 120 Temp 36.5 C (97.7 F) (Temporal Artery) Ht 149.9 cm (4' 11) Wt 68.8 kg (151 lb 9.6 oz) LMP 07/21/2023 (Approximate) SpO2 99% BMI 30.62 kg/m GENERAL: alert and appropriate, in no distress and well-hydrated, well nourished SKIN: no rash noted HEAD: normocephalic, no abnormality or lesion noted EYES: PERRL NECK: full ROM, no cervical LNs noted ACANTHOSIS: none noted EXTREMITIES: normal NEUROLOGIC: no obvious deficit ASSESSMENT/PLAN (E10.9) Type 1 diabetes mellitus without complication (HCC) (primary encounter diagnosis) Comment: patient given 2 sample DEXCOM sensors to get back on closed loop No settings changed today as patient did not have readout available (fingerstick numbers only) Patient does not know how to operate her insulin pump, did not receive training Patient does not know how to carb count. CONSULT TO DM EDUCATION for pump training AND carb counting instruction Patient to follow up in office ENDO in 4 months after completing the above instruction Patient verbalized understanding Recommended diet: Low carbohydrate and Low saturated fat, low simple sugar, high fiber diet Exercise minimally 150 minutes per week, increase as tolerated. Adequate hydration - 1/2 body wgt in oz of water daily, unless fluid restriction applies. I instructed the patient to monitor blood sugars 4 times per day If blood sugars are persistently high or low, to call our office. Patient to continue to follow up with her PCP and with other consultants regarding her other medical problems. Plan: COMPREHENSIVE METABOLIC PANEL, LIPID PANEL, NONFASTING, ALBUMIN/CREATININE RATIO, URINE, HEMOGLOBIN A1C Veronika Dorado CNP documented in this [facility] NoteHNO ID: [id number] Author: VERONIKA DORADO APRN.LIZZY Service: ? Author Type: Nurse Practitioner Type: Progress Notes Filed: 02/04/2024 10:24 Note Text: OFFICE VISIT PROGRESS NOTE CC Kalie Desir is a 23 year old who presents today for blood sugar review, insulin dosing adjust. HPI PATIENT OF DR. WILKS, ENDOCRINE Diagnosed with diabetes mellitus type 1, ~ age 9 Last endocrine OV 08/03/2020 with MARIA DOLORES AGOSTO HPI 02/04/2024 Not seen for 3 years in ENDO Cannot afford 'dexcom sensor' is NOT using pump closed loop OMNIPOD PUMP for insulin injections only Patient is not counting her carbs accurately Sts that she was [facility]Dr [facility] but was dropped as a patient due to no show//compliance issues Did see [facility] ENDO initially DM1 since age 9 Admits does not understand carb counting, but is just now using stalin to count carbs CALORIE GERALDO -For past 4 months Has been using OMNIPOD/DEXCOM, no sensor for past week due to co pay and cannot afford Is getting her pump supplies through OMN[employer]OD program assistance Is working with [employer] to get on their asst program Has been using fingersticks for the past 4 days due to no sensor Sts her blood sugars are 150 all day when she has closed loop system in place A1C for past 3 months is 10.1% OMNIPOD settings reviewed manually CURRENT DM MEDS LISPRO via OMNIPOD insulin pump GEN 5, not using DEXCOM (SENSOR NONE FOR 4 DAYS) BASAL: 00 - 1.35 I/C ratio 1 unit for 6 grams of carbs ISF 26 SMBG Type of Monitor: Other FINGERSTICKS Frequency of Monitoring: NOT USING times a day 4 DAYS BG Values: Breakfast: 264 Lunch: 250 Dinner: 297 Bed-time: 152 Values over past week: Highest ; Lowest Hypoglycemia: no Diet: No specific diet regimen Exercise: WORK only DM REVIEW OF SYSTEMS Last Eye Exam : 2 years ago, is scheduled for February 09, 2024 Last Podiatry Exam: none Cardiorespiratory: negative, denies chest pain, pressure Claudication: no Dyslipidemia: No High Blood Pressure: No CURRENT LABS Latest Ref Rng 12/24/2023 Glucose 74 - 99 mg/dL 353 (H) BUN 7 - 21 mg/dL 17 Creatinine 0.58 - 0.96 mg/dL 0.54 (L) Sodium 136 - 144 mmol/L 136 Potassium 3.7 - 5.1 mmol/L 4.8 Chloride 98 - 107 mmol/L 102 CO2 22 - 30 mmol/L 23 Anion Gap 8 - 15 mmol/L 11 eGFR >=60 mL/min/1.73m? 131 Total Cholesterol, Nonfasting <200 mg/dL 175 Triglycerides, Nonfasting <150 mg/dL 67 HDL Cholesterol, Nonfasting >39 mg/dL 81 LDL Cholesterol, Nonfasting <100 mg/dL 81 Non HDL Cholesterol, Nonfasting <130 mg/dL 94 VLDL Cholesterol, Nonfasting <30 mg/dL 13 Total Chol/HDL Ratio, Nonfasting <5.10 mg/dL 2.16 LDL/HDL Ratio, Nonfasting <2.54 mg/dL 1.00 Creatinine, Ur Random (UCRR) 20.0 - 300.0 mg/dL 36.3 Albumin, Urine Random mg/L <12.0 Albumin/Creat Ratio -- Hemoglobin A1C 4.3 - 5.6 % 10.1 (H) Estimated Average Glucose mg/dL 243 Recent Labs 05/10/15 1500 06/07/15 1559 01/15/16 1717 08/22/16 1420 03/01/19 1305 07/24/20 1543 08/03/20 0810 12/24/23 1024 12/24/23 1029 ALT -- -- -- -- 172* 12 -- 10 -- AST -- -- -- -- 47* 11* -- 17 -- UCRR -- -- -- -- -- -- -- -- 36.3 UALBR -- -- -- -- -- -- -- -- <12.0 TSH 1.370 -- 1.420 -- 1.640 -- -- -- -- TPROT -- -- -- -- 7.1 7.5 -- 7.1 -- ALB -- -- -- -- 3.4* 4.8 -- 4.4 -- CA -- -- -- -- 9.0 9.1 -- 9.9 -- TBILI -- -- -- -- 3.5* 0.4 -- 0.5 -- ALKPHOS -- -- -- -- 215* 103 -- 79 -- GLUC -- -- -- -- 594* 245* -- 353* -- BUN -- -- -- -- 10 11 -- 17 -- CREAT -- -- -- -- 0.35* 0.42* -- 0.54* -- NA -- -- -- -- 129* 135* -- 136 -- K -- -- -- -- 4.5 3.3* -- 4.8 -- CHLOR -- -- -- -- 94* 105 -- 102 -- CO2 -- -- -- -- 23 13* -- 23 -- ANION -- -- -- -- 12 17 -- 11 -- EGFROTH -- -- -- -- >60 >60 -- 131 -- HBA1C -- < > -- < > 11.6* -- 12.9* 10.1* -- < > = values in this interval not displayed. Recent Labs 05/10/14 1538 11/17/14 1545 02/07/15 1142 06/07/15 1559 09/13/15 1643 01/11/16 1446 03/01/19 1305 08/03/20 0810 12/24/23 1024 TG 101 -- 70 -- -- -- -- -- 67 CHOL 133 -- 145 -- -- -- -- -- 175 HDL 56 -- 57 -- -- -- -- -- 81 VLDL 20 -- 14 -- -- -- -- -- 13 LDL 57 -- 74 -- -- -- -- -- 81 FASTTIME NONFASTING -- FASTING -- -- -- -- -- -- TCHDL 2.38 -- 2.54 -- -- -- -- -- 2.16 LDLHDL 1.02 -- 1.30 -- -- -- -- -- 1.00 NONHDL 77* -- 88 -- -- -- -- -- 94 HBA1C 7.5* < > 8.3* < > 8.0* < > 11.6* 12.9* 10.1* HBA0 169 < > 192 < > 183 -- 286 -- 243 < > = values in this interval not displayed. PAST MEDICAL HISTORY Diagnosis Date Asthma Constipation 08/07/2016 Diabetes mellitus type 1 (HCC) Hepatitis A 02/15/2019 PAST SURGICAL HISTORY Procedure Laterality Date ADENOIDECTOMY PRIMARY age 18 month MYRINGOTOMY W TUBE,BILATERAL(2) age 18 months NEXPLANON INSERTION 07/06/2014 FAMILY HISTORY Problem Relation Age of Onset Hypertension Mother None Father None Maternal Grandmother None Maternal Grandfather Diabetes Paternal Gra (more content not included)...[facility] 01-27-2024 NoteHNO ID: [id number] Author: CHASITY HODGE PA-C Service: ? Author Type: Physician Hash Slinger Type: Progress Notes Filed: 01/27/2024 11:15 Note Text: Chief Complaint Patient presents with: Physical HPI Kalie Desir is a 23 year old female who presents here today for physical. Patient with hx of type 1 DM. Poorly controlled over the years with numerous visits to ER for DKA. Is scheduled next week with new body art technician. States she is feeling more motivated to get better control of her health. Financial burdens have hindered her in the past. No specific concerns today. Past medical history, appointments, medications, allergies reviewed. [...] etonogestrel (NEXPLANON) subdermal implant 68 mg ONCE Alcohol Swabs (ALCOHOL PREP PADS) padm Apply 1 application to affected area every 4 hours as needed (blood glucose check). Inhalational Spacing Device (AEROCHAMBER MASK LARGE) spcr 1 Device as needed. (Patient not taking: Reported on 12/26/2021 ) No current facility-administered medications on file prior to visit. Social History Social History Tobacco Use Smoking status: Never Passive exposure: Yes Smokeless tobacco: Never Tobacco comments: parents inside/outside Vaping Use Vaping Use: Never used Substance Use Topics Alcohol use: No Comment: Stopped Drug use: Yes Types: Marijuana Comment: Hx of marijuana Review of Symptoms REVIEW OF SYSTEMS GENERAL: No weight loss, malaise or fevers HEENT: No changes in hearing or vision, no nose bleeds or other nasal problems NECK: Negative for lumps, goiter, pain and significant neck swelling RESPIRATORY: Negative for cough, hemoptysis, wheezing, COPD, dyspnea or shortness of breath CARDIOVASCULAR: Negative for chest pain, leg swelling, hypertension, CHF or palpitations GI: Negative for abdominal discomfort, blood in stools or black stools, change in bowel habit, heart burn, nausea, vomiting : No history of dysuria, frequency or incontinence SURGICAL CODER: Negative for abnormal vaginal bleeding, abnormal vaginal discharge or thinks she is due for new nexplanon MUSCULOSKELETAL: Negative for joint pain or swelling, back pain or muscle pain SKIN: Negative for lesions, rash, and itching PSYCH: Negative for sleep disturbance, mood disorder and recent psychosocial stressors. States marijuana helps her with sleep and her anxiety. HEMATOLOGY/LYMPHOLOGY: Negative for prolonged bleeding, bruising easily or swollen nodes ENDOCRINE: Negative for cold or heat intolerance, polyuria, polydipsia and goiter NEURO: No history of headaches, syncope, paralysis, seizures or tremors EXAM: BP 100/68 (BP Site: Left Arm, BP Position: Sitting, BP Cuff Size: Regular Adult) Pulse 110 Temp 36.7 ?C (98 ?F) Resp 18 Wt 68.9 kg (152 lb) LMP 09/11/2020 (Exact Date) SpO2 98% BMI 30.70 kg/m? BP 100/68 (BP Site: Left Arm, BP Position: Sitting, BP Cuff Size: Regular Adult) Pulse 89 Temp 36.7 ?C (98 ?F) Resp 18 Wt 68.9 kg (152 lb) LMP 09/11/2020 (Exact Date) SpO2 98% BMI 30.70 kg/m? General Appearance: Well appearing, alert, in no acute distress, well-hydrated, well nourished. and Overweight. Skin: Skin color, texture, turgor normal, no suspicious rashes or lesions on exposed skin Head: Normocephalic, no masses, lesions, tenderness or abnormalities. Eyes: Anicteric sclera. Pupils are equally round and reactive to light. Extraocular movements are intact. . Ears: External ears normal, canals clear. Nose/Sinuses: Nares normal, septum midline, mucosa normal, no drainage or sinus tenderness. Oropharynx: Lips, mucosa, and tongue normal, teeth and gums normal, oropharynx normal. Neck: Supple, no adenopathy; thyroid symmetric, normal size, no bruits. Lungs: Lungs clear to auscultatio (more content not included)...[facility]07-09-[facility] History of Present illness Narrative* Chasity Hodge PA- C - 01/27/2024 10:03 AM EDT Chief Complaint Patient presents with: Physical HPI Kalie Desir is a 23 year old female who presents here today for physical. Patient with hx of type 1 DM. Poorly controlled over the years with numerous visits to ER for DKA. Is scheduled next week with new body art technician. States she is feeling more motivated to get better control of her health. Financial burdens have hindered her in the past. No specific concerns today. Past medical history, appointments, medications, allergies reviewed. [...] 2 Puffs as instructed every 4 hours asneeded. etonogestrel (NEXPLANON) subdermal implant 68 mg ONCE Alcohol Swabs (ALCOHOL PREP PADS) padm Apply 1 application to affected area every 4 hours as needed(blood glucose check). Inhalational Spacing Device (AEROCHAMBER MASK LARGE) spcr 1 Device as needed. (Patient not taking: Reported on 12/26/2021 ) No current facility-administered medications on file prior to visit. Social History Social History Tobacco Use Smoking status: Never Passive exposure: Yes Smokeless tobacco: Never Tobacco comments: parents inside/outside Vaping Use Vaping Use: Never used Substance Use Topics Alcohol use: No Comment: Stopped Drug use: Yes Types: Marijuana Comment: Hx of marijuana Review of Symptoms REVIEW OF SYSTEMS GENERAL: No weight loss, malaise or fevers HEENT: No changes in hearing or vision, no nose bleeds or other nasal problems NECK: Negative for lumps, goiter, pain and significant neck swelling RESPIRATORY: Negative for cough, hemoptysis, wheezing, COPD, dyspnea or shortness of breath CARDIOVASCULAR: Negative for chest pain, leg swelling, hypertension, CHF or palpitations GI: Negative for abdominal discomfort, blood in stools or black stools, change in bowel habit, heart burn, nausea, vomiting : No history of dysuria, frequency or incontinence SURGICAL CODER: Negative for abnormal vaginal bleeding, abnormal vaginal discharge or thinks she is due for new nexplanon MUSCULOSKELETAL: Negative for joint pain or swelling, back pain or muscle pain SKIN: Negative for lesions, rash, and itching PSYCH: Negative for sleep disturbance, mood disorder and recent psychosocial stressors. States marijuana helps her with sleep and her anxiety. HEMATOLOGY/LYMPHOLOGY: Negative for prolonged bleeding, bruising easily or swollen nodes ENDOCRINE: Negative for cold or heat intolerance, polyuria, polydipsia and goiter NEURO: No history of headaches, syncope, paralysis, seizures or tremors EXAM: BP 100/68 (BP Site: Left Arm, BP Position: Sitting, BP Cuff Size: Regular Adult) Pulse 110 Temp36.7 C (98 F) Resp 18 Wt 68.9 kg (152 lb) LMP 09/11/2020 (Exact Date) SpO2 98% BMI 30.70 kg/m BP 100/68 (BP Site: Left Arm, BP Position: Sitting, BP Cuff Size: Regular Adult) Pulse 89 Temp 36.7 C (98 F) Resp 18 Wt 68.9 kg (152 lb) LMP 09/11/2020 (Exact Date) SpO2 98% BMI 30.70 kg/m General Appearance: Well appearing, alert, in no acute distress, well-hydrated, well nourished. andOverweight. Skin: Skin color, texture, turgor normal, no suspicious rashes or lesions on exposed skin Head: Normocephalic, no masses, lesions, tenderness or abnormalities. Eyes: Anicteric sclera. Pupils are equally round and reactive to light. Extraocular movements are intact. . Ears: External ears normal, canals clear. Nose/Sinuses: Nares normal, septum midline, mucosa normal, no drainage or sinus tenderness. Oropharynx: Lips, mucosa, and tongue normal, teeth and gums normal, oropharynx normal. Neck: Supple, no adenopathy; thyroid symmetric, normal size, no bruits. Lungs: Lungs clear to auscultation. No wheezing, rhonchi, rales.. Heart: RRR without murmur, gallop, or rubs. No ectopy. Abdomen: Normal abdominal exam, Abdomen soft, non-tender. Bowel sounds normal. No masses, organomegaly. Extremities: No deformities, edema, skin discoloration, clubbing or cyanosis. Good capillary refill. . Peripheral Pulses: Normal. Neurologic: Gait normal. Reflexes normal and symmetric. Sensation grossly intact.. Feet:Shoes and socks removed, No deformities, ulcers, calluses, normal distal pulses, sensitive to 10 gm monofilament, and vibratory perception normal Health Maintenance List Dilated Retinal Exam Never done Diabetic Foot Exam Never done Pneumococcal Vaccine(2 of 2 - PCV) due on 01/09/2019 Cervical Cancer Screening Never done Behavioral Health Screening Never done HIV Screening due on 01/26/2025 Covid-19 Vaccine(1 - 2022- season) due on 01/26/2025 Influenza Vaccine(1) due on 03/21/2024 HbA1C due on 03/25/2024 Urine Albumin:Creatinine Ratio due on 12/23/2024 LDL Cholesterol due on 12/23/2024 Annual PCP Team Chronic Disease Visit due on 12/23/2024 DTaP,Tdap,Td Vaccine(2 - Td or Tdap) due on 01/18/2025 Hepatitis B Vaccine Completed HPV Vaccine Completed Hepatitis C Screening Completed Spirometry Discontinued Data reviewed Latest Ref Rng 12/24/2023 WBC 3.70 - 11.00 k/uL 6.06 RBC 3.90 - 5.20 m/uL 4.91 Hemoglobin 11.5 - 15.5 g/dL 13.6 Hematocrit 36.0 - 46.0 % 42.5 MCV 80.0 - 100.0 fL 86.6 MCH 26.0 - 34.0 pg 27.7 MCHC 30.5 - 36.0 g/dL 32.0 RDW-CV 11.5 - 15.0 % 13.1 Platelet Count 150 - 400 k/uL 384 MPV 9.0 - 12.7 fL 9.3 Neut% % 71.6 Abs Neut (ANC) 1.45 - 7.50 k/uL 4.34 Lymph% % 20.6 Abs Lymph 1.00 - 4.00 k/uL 1.25 [place]% % 4.8 Abs [place] <0.87 k/uL 0.29 Eosin% % 2.0 Abs Eosin <0.46 k/uL 0.12 Baso% % 0.8 Abs Baso <0.11 k/uL 0.05 Immature Gran % % 0.2 IMMATURE GRANS (ABS) <0.10 k/uL <0.03 NRBC /100 WBC 0.0 Absolute nRBC <0.01 k/uL <0.01 DTYPE Auto Color Yellow Yellow Clarity Clear Clear Glucose, Urine Negative 3+ ! Bilirubin, Urine Negative Negative Ketones, Urine Negative Negative Specific [place], Ur 1.005 - 1.030 1.032 (H) Hemoglobin/Blood,Ur Negative Negative pH, Urine <8.5 6.0 Protein, Urine Negative Negative Urobilinogen 0.2-1.0 EU/dL 0.2 EU/dL Nitrites Negative Negative Leukest Negative Negative WBC, Urine 0-5 /HPF 0-5 /HPF RBC, Urine 0-2 /HPF 0-2 /HPF Bacteria Negative /HPF Negative Epithelial Cells /HPF None Seen Hyaline Cast 0 /LPF 0 /LPF Protein, Total 6.3 - 8.0 g/dL 7.1 Albumin 3.9 - 4.9 g/dL 4.4 Calcium 8.5 - 10.2 mg/dL 9.9 Bilirubin, Total 0.2 - 1.3 mg/dL 0.5 Alkaline Phosphatase 34 - 123 U/L 79 AST 13 - 35 U/L 17 ALT 7 - 38 U/L 10 Glucose 74 - 99 mg/dL 353 (H) BUN 7 - 21 mg/dL 17 Creatinine 0.58 - 0.96 mg/dL 0.54 (L) Sodium 136 - 144 mmol/L 136 Potassium 3.7 - 5.1 mmol/L 4.8 Chloride 98 - 107 mmol/L 102 CO2 22 - 30 mmol/L 23 Anion Gap 8 - 15 mmol/L 11 eGFR >=60 mL/min/1.73m 131 Total Cholesterol, Nonfasting <200 mg/dL 175 Triglycerides, Nonfasting <150 mg/dL 67 HDL Cholesterol, Nonfasting >39 mg/dL 81 LDL Cholesterol, Nonfasting <100 mg/dL 81 Non HDL Cholesterol, Nonfasting <130 mg/dL 94 VLDL Cholesterol, Nonfasting <30 mg/dL 13 Total Chol/HDL Ratio, Nonfasting <5.10 mg/dL 2.16 LDL/HDL Ratio, Nonfasting <2.54 mg/dL 1.00 Creatinine, Ur Random (UCRR) 20.0 - 300.0 mg/dL 36.3 Albumin, Urine Random mg/L <12.0 Albumin/Creat Ratio -- Hemoglobin A1C 4.3 - 5.6 % 10.1 (H) Estimated Average Glucose mg/dL 243 Legend: ! Abnormal (H) High (L) Low ASSESSMENT/PLAN: 1. Well adult exam - ICD9: V70.0, ICD10: Z00.00 (primary diagnosis) - Counseled on healthy diet and regular exercise - Patient was counseled [id number] by myself (the billing provider) for the following immunizations and vaccine components, including side effects: Pneumococcal . Patient consents for immunization and understands risks and benefits. A VIS sheet on each immunization was given to the patient. - CONSULT TO GYNECOLOGY 2. Type 1 diabetes mellitus without complication (HCC) - ICD9: 250.01, ICD10: E10.9 - Uncontrolled - Continue current medications - CONSULT TO OPHTHALMOLOGY 3. Mild intermittent asthma without complication - ICD9: 493.90, ICD10: J45.20 - Mild intermittent asthma stable - Continue current medications - Avoidance of triggers recommended 4. Encounter for immunization - ICD9: V03.89, ICD10: Z23 - PNEUMOCOCCAL VACCINE, 20 VALENT (PREVNAR 20) 5. ARELIS (generalized anxiety disorder) - ICD9: 300.02, ICD10: F41.1 Stable overall. Follow up routine in 6 months. Chasity Hodge PA-C documented in [facility]24 NoteHNO ID: [id number] Author: SULY AMAYA MSW Service: ? Author Type: Precision Crop Manager Type: Progress Notes Filed: 01/07/2024 12:31 Note Text: This Sw notes [employer] Expert provided patient with link to [employer] patient assistance program.[facility]06-19-2024 History of Present illness Narrative* Suly Amaya MSW - 01/07/2024 12:30 PM EDT This Sw notes [employer] Expert provided patient with link to dexcom patient assistance program. * Suly Amaya MSW - 01/07/2024 9:42 AM EDT Patient reports that she used to see Dr. Chow[facility] endocrinology. Sw does not see patient diabetes medications listed. Patient reports difficulty with cost of dexcom and reports that she had been taking novolog and will be switching patient to humalog due to insurance. Patient reports that her humalog will cost $50 a month. Patient reports that she has enough of the novolog right now until pay dayand will then be on humalog. Patient reports that she has high copay-deductible.Reports cost [facility]. Sw will forward note to VERONICA Banda, Endo for options regarding assistance with dexcom sensor. Patient reports living with mom. Patient reports that she eats anything. Patient notes trying to stay away from bread and pasta, but that is what her mom likes to make. Patient reports that she likes to drink water. Patient reports that she works at [employer]. Patient reports enjoys eating at home. Patient reports insulin pump runs about $50 a month. Patient reports that she pays $400 every 2 weeks for rent. Goals: Locate financial assistance for dexcom. Would like A1C to be down to a 6. Would like to lose weight. Enjoys walking and listening to music. Sw reviewed [facility] and [place] resource guide. Discussed Community Action and [employer] [place] [employer] assistance ie. Utilities, car repair, water bill, electric bill. People to People was also discussed in regards to short term medication assistance. documented in this encounterSalem [facility]06-[facility]-2024 NoteHNO ID: [id number] Author: JACKELINE SHUKLA RN Service: ? Author Type: Registered Nurse Type: Progress Notes Filed: 01/07/2024 11:26 Note Text: DIABETES CARE AND EDUCATION VISIT Location: [place] Type of visit: In person individual PATIENT'S MAIN CONCERN TODAY: review what I need to know Support person present for education today: none Cognitive ability: Alert and oriented Motivation to learn: Interested Learning barriers identified by educator: none Method of instruction: written, verbal, and demonstration DIABETES FINDINGS: Omnipod 5 - limited automode at moment -1.35 units per hour basal if running in manual mode. Hx shows she's using about 20 units per day basal when in automode (45 units per day with her boluses) but she is without a Dexcom G6 currently. ICR of 1:6, ISF of 26mg/dL and target of 120. Discussed use of alcohol with diabetes and patient also had questions about medical marijuana usage with diabetes and it's effect on blood sugars. I encouraged her to follow up with a provider as regards the marijuana as I was unaware of it's action on blood sugars. 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 Meal Planning: reviewed basic meal planning recommendations Medications: insulin ordered by Pj Chow, not on file in our system Problem Solving: Reviewed hyperglycemia and hypoglycemia Reducing Risks: benefits reviewed of controlling sugars to avoid complications HANDOUTS: Healthy You: Survival Skills and Healthy You: Planning Healthy Meals LEARNING RESPONSE: Healthy eating: Demonstrated understanding/competency today or at previous visit Taking medications: Demonstrated understanding/competency today or at previous visit Monitoring glucose: Demonstrated understanding/competency today or at previous visit Acute complications: Demonstrated understanding/competency today or at previous visit Chronic complications: Demonstrated understanding/competency today or at previous visit POSSIBLE FUTURE TOPICS: 1. Follow up as needed for pump - links for how to connect her insulin pump to the Clinic's [employer] account was sent to her along with the link for the Dexcom Patient Assistance program. DIABETES CARE AND EDUCATION PLAN: Individual follow-up Time Spent (Minutes): 30 This visit note will be communicated to the healthcare provider via access to shared medical record. SIGNATURE: Jackeline Shukla RN PATIENT NAME: Kalie Desir DATE: January 07, 2024 TIME: 10:25 [facility]06-19-2024 History of Present illness Narrative* Jackeline Shukla RN - 01/07/2024 10:24 AM EDT DIABETES CARE AND EDUCATION VISIT Location: [place] Type of visit: In person individual PATIENT'S MAIN CONCERN TODAY: review what I need to know Support person present for education today: none Cognitive ability: Alert and oriented Motivation to learn: Interested Learning barriers identified by educator: none Method of instruction: written, verbal, and demonstration DIABETES FINDINGS: Omnipod 5 - limited automode at moment -1.35 units per hour basal if running in manual mode. Hx shows she's using about 20 units per day basal when in automode (45 units per day with her boluses) but she is without a Dexcom G6 currently. ICR of 1:6, ISF of 26mg/dL and target of 120. Discussed use of alcohol with diabetes and patient also had questions about medical marijuana usagewith diabetes and it's effect on blood sugars. I encouraged her to follow up with a provider as regards the marijuana as I was unaware of it's action on blood sugars. 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 Meal Planning: reviewed basic meal planning recommendations Medications: insulin ordered by Pj Chow, not on file in our system Problem Solving: Reviewed hyperglycemia and hypoglycemia Reducing Risks: benefits reviewed of controlling sugars to avoid complications HANDOUTS: Healthy You: Survival Skills and Healthy You: Planning Healthy Meals LEARNING RESPONSE: Healthy eating: Demonstrated understanding/competency today or at previous visit Taking medications: Demonstrated understanding/competency today or at previous visit Monitoring glucose: Demonstrated understanding/competency today or at previous visit Acute complications: Demonstrated understanding/competency today or at previous visit Chronic complications: Demonstrated understanding/competency today or at previous visit POSSIBLE FUTURE TOPICS: 1. Follow up as needed for pump - links for how to connect her insulin pump to the Clinic's [employer] account was sent to her along with the link for the Dexcom Patient Assistance program. DIABETES CARE AND EDUCATION PLAN: Individual follow-up Time Spent (Minutes): 30 This visit note will be communicated to the healthcare provider via access to shared medical record. SIGNATURE: Jackeline Shukla RN PATIENT NAME: Kalie Desir DATE: January 07, 2024 TIME: 10:25 AM documented in this encounterSalem [facility] Center06-19-2024 NoteHNO ID: [id number] Author: SULY AMAYA MSW Service: ? Author Type: Precision Crop Manager Type: Progress Notes Filed: 01/07/2024 12:31 Note Text: Patient reports that she used to see Dr. [facility] endocrinology. Sw does not see patient diabetes medications listed. Patient reports difficulty with cost of dexcom and reports that she had been taking novolog and will be switching patient to humalog due to insurance. Patient reports that her humalog will cost $50 a month. Patient reports that she has enough of the novolog right now until pay day and will then be on humalog. Patient reports that she has high copay-deductible.Reports cost of dexcom sensor costing $150 for a month. Sw will forward note to VERONICA Banda, Endo for options regarding assistance with dexcom sensor. Patient reports living with mom. Patient reports that she eats anything. Patient notes trying to stay away from bread and pasta, but that is what her mom likes to make. Patient reports that she likes to drink water. Patient reports that she works at [employer]. Patient reports enjoys eating at home. Patient reports insulin pump runs about $50 a month. Patient reports that she pays $400 every 2 weeks for rent. Goals: Locate financial assistance for dexcom. Would like A1C to be down to a 6. Would like to lose weight. Enjoys walking and listening to music. Sw reviewed [facility] [place] resource guide. Discussed Community Action and [facility] assistance ie. Utilities, car repair, water bill, electric bill. People to People was also discussed in regards to short term medication assistance.[facility]06-06-2024 Telephone encounter Note* Telephone Encounter - Chasity Hodge PA-C - 12/25/2023 11:54 AM EDT Noted. [facility]06-[facility] Miscellaneous Notes* Telephone Encounter - Chasity Hodge PA-C - 12/25/2023 11:54 AM EDT Noted. * Telephone Encounter - Cora Dupree - 12/25/2023 11:11 AM EDT Spoke with patient and scheduled for February 03 (first available) with Sammi Dorado and also added appointment to wait list for cancellations. * Telephone Encounter - April Jamil LPN - 12/25/2023 10:22 AM EDT Encounter routed to PSS to check if Veornika Dorado has any sooner appointments. Appointment with Merary has been cancelled and patient has been notified of providers message. * Telephone Encounter - Chasity Hodge PA-C - 12/25/2023 10:12 AM EDT Patient is scheduled with Merary August tab on 01/13. I checked with Merary and she does not manage patient with insulin pumps. This appointment needs cancelled. Kalie should keep appt with Hamlet Shukla and maria dolores. Can we check if Veronika Dorado has any sooner appointments? Thanks. Chasity Hodge PA-C documented in this encounterSalem [facility] Center06-06-2024 Telephone encounter Note * Telephone Encounter - Cora Dupree - 12/25/2023 11:11 AM EDT Spoke with patient and scheduled for February 03 (first available) with Sammi Dorado and also added appointment to wait list for cancellations. [facility] Telephone encounter Note* Telephone Encounter - April Jamil LPN - 12/25/2023 10:22 AM EDT Encounter routed to PSS to check if Veronika Dorado has any sooner appointments. Appointment with Merary has been cancelled and patient has been notified of providers message. [facility]06-[facility] Telephone encounter Note* Telephone Encounter - Chasity Hodge PA-C - 12/25/2023 10:12 AM EDT Patient is scheduled with Merary August RPh on 01/13. I checked with Merary and she does not manage patient with insulin pumps. This appointment needs cancelled. Kalie should keep appt with Hamlet Shukla and maria dolores. Can we check if Veronika Dorado has any sooner appointments? Thanks. Chasity Hodge PA-C [facility]06-06-[facility] Telephone encounter Note* Telephone Encounter - April Jamil LPN - 12/25/2023 10:00 AM EDT Patient notified of providers message and verbalized understanding. Patient states she will go to pharmacy now for the insulin. [facility]06-06-20[facility] Miscellaneous Notes* Telephone Encounter - April Jamil LPN - 12/25/2023 10:00 AM EDT Patient notified of providers message and verbalized understanding. Patient states she will go to pharmacy now for the insulin. 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 Please let patient know. Also, we heard back from endocrinology. she was notified of being discharged from Dr. Chow's officeback in October due to chronic noncompliance. This should have been plenty of time for her to notify us and get set up with new body art technician vs waiting 2 months to see me as she is running out of insulin. During that time we could have also started the process of seeing if she qualifies for financial help to cover some of the costs of her supplies. As discussed yesterday, she needs to really start taking responsibility and ownership over her Type1 Diabetes. She has to follow up with endocrinology from here on out. Chasity Hodge PA-C * Telephone Encounter - April Jamil LPN - 12/25/2023 9:33 AM EDT Spoke with [facility]. Pharmacy states that prescription for dexcom supplies and the insulin are onhold. They state that it is possible that patient didn't pick them up due to cost but they will runit through again. * Telephone Encounter - Chasity Hodge PA-C - 12/25/2023 9:09 AM EDT Please call [facility] and see if they have any medications on hold for her? * Telephone Encounter - Bonnie Huber LPN - 12/25/2023 8:42 AM EDT Pt states she thought all of the referrals were made yesterday, however she didn't have any dates of when they were scheduled. Pt was transferred to scheduling to get referrals scheduled. Spoke to Mechelle at Dr Chow's office. She said pt was discharged from the practice d/t non compliance. Mechelle said pt was not taking the insulin as directed, didn't know the dosages & had multipleno shows. Mechelle indicated pt was given a 90 day supply of insulin, a dexcom G6, transmitter & omnipods on 11/10/23, this was sent to [facility] in [place]. Enough med & supplies to last until she finds anotherprovider. Bonnie Huber LPN * Telephone Encounter - Chasity Hodge PA-C - 12/25/2023 8:14 AM EDT Check with patient on why she didn't schedule the consults we discussed after she left. These are urgent consults that I need patient to schedule lencho. Also I'm still trying to get a hold of Dr. Arriaga office for further guidance. (Please try to contact Dr. Pj Arriaga office again. Patient told me she was discharged from her care due to missing just 1 appointment. But I would like to know what happened from them. Patient is running out of her insulin for her pump and she can't tell me how much insulin she takes or needs. I don't order insulin for pumps routinely. I'm hoping they can help bridge coverage of meds until she gets established with new body art technician). 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 Please let patient know. Also, we heard back from endocrinology. she was notified of being discharged from Dr. Chow's officeback in October due to chronic noncompliance. This should have been plenty of time for her to notify us and get set up with new body art technician vs waiting 2 months to see me as she is running out of insulin. During that time we could have also started the process of seeing if she qualifies for financial help to cover some of the costs of her supplies. As discussed yesterday, she needs to really start taking responsibility and ownership over her Type1 Diabetes. She has to follow up with endocrinology from here on out. Chasity Hodge PA-C [facility]06-06-[facility] Telephone encounter Note* Telephone Encounter - April Jamil LPN - 12/25/2023 9:33 AM EDT Spoke with [facility]. Pharmacy states that prescription for dexcom supplies and the insulin are onhold. They state that it is possible that patient didn't pick them up due to cost but they will runit through again. [facility]06-06-[facility] Telephone encounter Note* Telephone Encounter - Chasity Hodge PA-C - 12/25/2023 9:09 AM EDT Please call [facility] and see if they have any medications on hold for her? [facility]06-06-[facility] Telephone encounter Note* Telephone Encounter - Bonnie Huber LPN - 12/25/2023 8:42 AM EDT Pt states she thought all of the referrals were made yesterday, however she didn't have any dates of when they were scheduled. Pt was transferred to scheduling to get referrals scheduled. Spoke to Mechelle at Dr Chow's office. She said pt was discharged from the practice d/t non compliance. Mechelle said pt was not taking the insulin as directed, didn't know the dosages & had multipleno shows. Mechelle indicated pt was given a 90 day supply of insulin, a dexcom G6, transmitter & omnipods on 11/10/23, this was sent to [facility] in [place]. Enough med & supplies to last until she finds anotherprovider. Bonnie Huber LPN [facility]06-06-[facility] Telephone encounter Note* Telephone Encounter - Chasity Hodge PA-C - 12/25/2023 8:14 AM EDT Check with patient on why she didn't schedule the consults we discussed after she left. These are urgent consults that I need patient to schedule lencho. Also I'm still trying to get a hold of Dr. Arriaga office for further guidance. (Please try to contact Dr. Pj Arriaga office again. Patient told me she was discharged from her care due to missing just 1 appointment. But I would like to know what happened from them. Patient is running out of her insulin for her pump and she can't tell me how much insulin she takes or needs. I don't order insulin for pumps routinely. I'm hoping they can help bridge coverage of meds until she gets established with new body art technician). Chasity Hodge PA-C [facility]06-05-[facility]24 NoteHNO ID: [id number] Author: CHASITY HODGE PA-C Service: ? Author Type: Physician Hash Slinger Type: Progress Notes Filed: 12/24/2023 12:50 Note Text: Chief Complaint Patient presents with: Hospital F/U [facility] Kalie Desir is a 23 year old female who presents here today for Hospital Discharge Follow up.. Over the years, patient has had multiple ER visits and hospitalizations. Mostly due to DKA. Patient was last in hospital mid november. States she missed an appointment with endocrinology and was discharged from their practice. States she is now running low on her insulin. Thinks she only has 2-3 days left of her insulin. She is unsure how much she is getting per day. Has not been checking her blood sugars. Patient states cost of care has kept her from getting her scripts and supplies. States that at one point she was paying rent and groceries for her mom as well. Still lives with mom but mom now has a job so she isn't paying for as much. However still struggles with low income and insurance doesn't seem to cover much. Past medical history, appointments, medications, allergies reviewed. [...] etonogestrel (NEXPLANON) subdermal implant 68 mg ONCE Alcohol Swabs (ALCOHOL PREP PADS) padm Apply 1 application to affected area every 4 hours as needed (blood glucose check). famotidine (PEPCID) 20 mg tablet Take 20 mg by mouth twice daily. (Patient not taking: Reported on 12/24/2023) sucralfate (CARAFATE) 1 gram tablet Take 1 g by mouth three times daily. (Patient not taking: Reported on 12/24/2023) promethazine (PHENERGAN) 25 mg tablet Take 25 mg by mouth three times daily. Take one tablet three times daily as needed (Patient not taking: Reported on 12/24/2023) ondansetron orally disintegrating (ZOFRAN ODT) 4 mg disintegrating tablet Take 1 tablet by mouth every 6 hours as needed for nausea/vomiting. (Patient not taking: Reported on 10/16/2022) naproxen (NAPROSYN) 500 mg tablet Take 1 tablet by mouth twice daily as needed (for pain/inflammation). Take with food. (Patient not taking: Reported on 10/16/2022) traZODone (DESYREL) 50 mg tablet Take 1 tablet by mouth daily at bedtime. (Patient not taking: Reported on 12/31/2021 ) insulin glargine (BASAGLAR KWIKPEN U-100 INSULIN) 100 unit/mL (3 mL) Inject 45 Units subcutaneously daily at bedtime. Per Endo: Dr. Chow (Patient not taking: Reported on 12/31/2021 ) flash glucose sensor (FREESTYLE DANIELA 14 DAY SENSOR) kit apply 1 SENSOR TO THE BACK OF UPPER ARM. REMOVE AND REPLACE EVERY 14 DAYS. USE WITH DEVICE TO MONITOR BLOOD SUGAR four times a day (Patient not taking: Reported on 10/16/2022) etonogestrel (NEXPLANON) subdermal implant 68 mg 1 Each by SUBDERMAL route as directed. (Patient not taking: Reported on 07/02/2021 ) flash glucose scanning reader (FREESTYLE DANIELA 14 DAY READER) [facility] [place] For blood sugar checks 4 times a day (Patient not taking: Reported on 10/16/2022) potassium chloride ER (K-DUR, KLOR-CON) 20 mEq tablet Take 20 mEq by mouth twice daily. (Patient not taking: Reported on 12/24/2023) Insulin Rincon, Disposable, (OPAL PEN NEEDLE) 32 gauge x 5/32 ndle Use with insulin injections (Patient not taking: Reported on 12/26/2021 ) Insulin Syringe-Needle U-100 (BD ULTRAFINE INSULIN) 1 mL 31 gauge x 5/16 syrg Supply to be used as directed for insulin administration up to 3 times daily. (Patient not taking: Reported on 10/16/2022) glucagon, human recombinant, (GLUCAGON EMERGENCY KIT, HUMAN,) 1 mg injection Inject 1 mg intramuscularly as directed. Use when pt is unconsciousness or having a seizure. (Patient not taking: Reported on 12/26/2021 ) Inhalational Spacing Device (AEROCHAMBER MASK LARGE) spcr 1 Device as needed. (Patient not taking: Reported on 12/26/2021 ) Insulin Admin Supplies (NOVOP (more content not included)...[facility]06-05-2024 History of Present illness Narrative* Chasity Hodge PA- C - 12/24/2023 9:44 AM EDT Chief Complaint Patient presents with: Hospital F/U [facility] Kalie Desir is a 23 year old female who presents here today for Hospital Discharge Follow up.. Over the years, patient has had multiple ER visits and hospitalizations. Mostly due to DKA. Patient was last in hospital mid november. States she missed an appointment with endocrinology and was discharged from their practice. States she is now running low on her insulin. Thinks she only has 2-3 days left of her insulin. She is unsure how much she is getting per day. Has not been checking her blood sugars. Patient states cost of care has kept her from getting her scripts and supplies. States that at one point she was paying rent and groceries for her mom as well. Still lives with mom but mom now has a job so she isn't paying for as much. However still struggleswith low income and insurance doesn't seem to cover much. Past medical history, appointments, medications, allergies reviewed. [...] 2 Puffs as instructed every 4 hours asneeded. etonogestrel (NEXPLANON) subdermal implant 68 mg ONCE Alcohol Swabs (ALCOHOL PREP PADS) padm Apply 1 application to affected area every 4 hours as needed(blood glucose check). famotidine (PEPCID) 20 mg tablet Take 20 mg by mouth twice daily. (Patient not taking: Reported on 12/24/2023) sucralfate (CARAFATE) 1 gram tablet Take 1 g by mouth three times daily. (Patient not taking: Reported on 12/24/2023) promethazine (PHENERGAN) 25 mg tablet Take 25 mg by mouth three times daily. Take one tablet three times daily as needed (Patient not taking: Reported on 12/24/2023) ondansetron orally disintegrating (ZOFRAN ODT) 4 mg disintegrating tablet Take 1 tablet by mouth every 6 hours as needed for nausea/vomiting. (Patient not taking: Reported on 10/16/2022) naproxen (NAPROSYN) 500 mg tablet Take 1 tablet by mouth twice daily as needed (for pain/inflammation). Take with food. (Patient not taking: Reported on 10/16/2022) traZODone (DESYREL) 50 mg tablet Take 1 tablet by mouth daily at bedtime. (Patient not taking: Reported on 12/31/2021 ) insulin glargine (BASAGLAR KWIKPEN U-100 INSULIN) 100 unit/mL (3 mL) Inject 45 Units subcutaneouslydaily at bedtime. Per Endo: Dr. Chow (Patient not taking: Reported on 12/31/2021 ) flash glucose sensor (FREESTYLE DANIELA 14 DAY SENSOR) kit apply 1 SENSOR TO THE BACK OF UPPER ARM. REMOVE AND REPLACE EVERY 14 DAYS. USE WITH DEVICE TO MONITOR BLOOD SUGAR four times a day (Patient not taking: Reported on 10/16/2022) etonogestrel (NEXPLANON) subdermal implant 68 mg 1 Each by SUBDERMAL route as directed. (Patient not taking: Reported on 07/02/2021 ) flash glucose scanning reader (FREESTYLE DANIELA 14 DAY READER) [facility] [place] For blood sugar checks 4 times aday (Patient not taking: Reported on 10/16/2022) potassium chloride ER (K-DUR, KLOR-CON) 20 mEq tablet Take 20 mEq by mouth twice daily. (Patient not taking: Reported on 12/24/2023) Insulin Rincon, Disposable, (OPAL PEN NEEDLE) 32 gauge x 5/32 ndle Use with insulin injections (Patient not taking: Reported on 12/26/2021 ) Insulin Syringe-Needle U-100 (BD ULTRAFINE INSULIN) 1 mL 31 gauge x 5/16 syrg Supply to be used as directed for insulin administration up to 3 times daily. (Patient not taking: Reported on 10/16/2022) glucagon, human recombinant, (GLUCAGON EMERGENCY KIT, HUMAN,) 1 mg injection Inject 1 mg intramuscularly as directed. Use when pt is unconsciousness or having a seizure. (Patient not taking: Reportedon 12/26/2021 ) Inhalational Spacing Device (AEROCHAMBER MASK [...] REVIEW OF SYSTEMS See hpi EXAM: BP 98/59 (BP Site: Right Arm, BP Position: Sitting, BP Cuff Size: Regular Adult) Pulse 89 Temp 36.6 C (97.9 F) (Tympanic) Resp 16 Wt 69.4 kg (153 lb) LMP 09/11/2020 (Exact Date) SpO2 98% BMI 30.90 kg/m General Appearance: Well appearing, alert, in no acute distress, well-hydrated, well nourished.. Lungs: Lungs clear to auscultation. No wheezing, rhonchi, rales.. Heart: RRR without murmur, gallop, or rubs. No ectopy. Health Maintenance List Dilated Retinal Exam Never done Diabetic Foot Exam Never done LDL Cholesterol due on 2016 Spirometry Never done HIV Screening Never done Pneumococcal Vaccine(2 of 2 - PCV) due on 01/09/2019 Pap Testing Never done HbA1C due on 11/01/2020 Covid-19 Vaccine(2022- season) Never done Behavioral Health Screening Never done Influenza Vaccine(Season Ended) due on 03/21/2024 Annual PCP Team Chronic Disease Visit due on 12/23/2024 DTaP,Tdap,Td Vaccine(2 - Td or Tdap) due on 01/18/2025 Hepatitis B Vaccine Completed HPV Vaccine Completed Hepatitis C Screening Completed Data reviewed ASSESSMENT/PLAN: 1. Type 1 diabetes mellitus with hyperglycemia (HCC) - ICD9: 250.01, ICD10: E10.65 (primary diagnosis) - Will try to get patient in with endo through [facility]. - Will reach out to previous endocrinology office to see why patient was discharged and when. And if they can help cover patient's prescriptions until she is seen for her diabetes. - I don't manage type 1 diabetes and am unfamiliar with process of prescribing insulin through insulin pump. - patient should also undergo re-education on her diabetes given that she still has poor follow up and multiple hospitalizations. - will also place consult to delinquency prevention social worker given financial and social burdens. - CONSULT TO ENDOCRINOLOGY - SENIOR DIRECTOR FINANCE [CONSULT TO SOCIAL WORK] - CONSULT TO DIABETES EDUCATION DSME/MNT - COMPLETE BLOOD COUNT AND DIFFERENTIAL - URINALYSIS, WITH MICROSCOPIC - ALBUMIN/CREATININE RATIO, URINE - HEMOGLOBIN A1C - COMPREHENSIVE METABOLIC PANEL 2. Encounter for lipid screening for cardiovascular disease - ICD9: V77.91, V81.2, ICD10: Z13.220, Z13.6 - LIPID PANEL, NONFASTING Set up PE in 1 month. Chasity Hodge PA-C [facility] Discharge summary Author Damien Villagran [facility] November 28, 2023 2:05pm Note Date/Time November 28, 2023 1:59p [facility] Medical Records Department [address] [place] [id number] Discharge Summary 11/28/23 1356 MR#: [id number] Acct: [id number] Name: KALIE DESIR Rep #:[id number] : 2000 23 From: Damien Villagran DO PCP: Minnie Hodge Status:ADM I N Location: [facility] [place] GJ304-2 Providers Date of Admission: 11/26/23 Primary Care Physician: Minnie Hodge Consultations 11/26/23 05:37 Consult: General Surgery Routine Consulting Provider: Emery Calle Reason for Consult: CT suggestive of early acute appendicitis plus colitis. EMERGENT Consult: No MD Notified: Yes Date Notified: 11/26/23 Time Notified: 05:37 Method of Notification: Text Reason For Visit: DKA Diagnosis Discharge Diagnosis (1) DKA (diabetic ketoacidosis): Status: Acute Code(s): E11.10 - Type 2 diabetes mellitus with ketoacidosis without coma Qualifiers: Diabetes mellitus type: type 1 Diabetes mellitus complication detail: without coma Qualified Code(s): E10.10 - Type 1 diabetes mellitus with ketoacidosis without coma (2) Type 1 diabetes mellitus with hyperglycemia: Status: Chronic Code(s): E10.65 - Type 1 diabetes mellitus with hyperglycemia (3) Non-compliance: Status: Chronic Code(s): Z91.199 - Patient's noncompliance with other medical treatment and regimen due to unspecified reason (4) Acute colitis: Status: Acute Code(s): K52.9 - Noninfective gastroenteritis and colitis, unspecified (5) Appendicitis: Status: Acute Code(s): K37 - Unspecified appendicitis Qualifiers: Appendicitis type: unspecified Qualified Code(s): K37 - Unspecified appendicitis Plan Acute DKA * in type 1 diabetic. due to insulin pump running out, going to bed w/o insulin. * Started on IVF and IV insulin. Got out of DKA yesterday and went to appear to go back into it again today. Patient did receive a dose of about 20 units of glargine this morning. Feel the patient is more and more likely to continue t o slide into DKA so we will place patient back in the intensive care units and resume insulin drip as well as continue with IV fluids, NPO. * I emphasized to the patient 11/26 that she needs to take full ownership over her diabetes as she is currently 23 years old with type 1 diabetes and the fact that she just pulled the insulin pump off when it ran out is rather meager excuse for her current issues. * 11/27: Resolved from her second bout of DKA during this hospitalization. Will initiate insulin glargine 30 units daily, Humalog 15 units with meals and sliding scale insulin. * Patient states that she has insulin for insulin pump at home and will be getting a continuous glucometer at home. Additionally, she states that she has Levemir and prandial insulin if that is not available. She states that she also has an body art technician that she will be following up with. Acute Colitis * Not felt to be appendicitis nor colitis by general surgery. * on abx with levofloxacin and metronidazole and will continue given her ongoing leukocytosis. * Gen Surg consulted. Feels less likely appendicitis. No imminent plans for surgery. Chronic conditions: * History of asthma - Stable with no evidence of acute flare. Continue prn nebulizers. * Depression with anxiety - Continue home regimen plus give prn Vistaril for breakthrough symptoms. * History of cannabis abuse - Cannabis cessation will be strongly encouraged. VTE prophylaxis - enoxaparin Patient has been admitted to [facility] 14 times since 2018. I did not determine how many of those hospitalizations were related with DKA but I would imagine good number them are. Medications at Discharge Home Medications albuterol sulfate 90 mcg/actuation aerosol inhaler (Ventolin HFA) 2 puff inhalation Q4H PRN SHORTNES OF BREATH/WHEEZING 08/25/18 Ketone Urine Test (acetone (urine) test) #50 ea 11/05/21 fluticasone propionate 50 mcg/actuation nasal spray,suspension 2 spray intranasal DAILY NASAL CONGESTION 11/21/22 pen needle, diabetic 32 gauge x 5/32 (BD Ultra-Fine Opal Pen Needle) #120 ea 11/23/22 hydroxyzine pamoate 25 mg capsule (Vistaril) 25 mg PO QHS ITCHING #30 caps 01/13/23 insulin pump cartridge,automated dose,BT with controller subcutaneous (Omnipod 5G6 Intro Kit (Gen 5) subcutaneous cartridge with controller) #1 ea 08/15/23 blood-glucose sensor (Dexcom G6 Sensor device) #9 ea 11/10/23 blood-glucose transmitter (Dexcom G6 Transmitter device) #1 ea 11/10/23 insulin aspart U-100 100 unit/mL subcutaneous solution 100 unit subcut ONCE #90 mL 11/10/23 insulin pump cart,automated,BT (Omnipod 5 G6 Pods (Gen 5) subcutaneous cartridge) #45 ea 11/10/23 levofloxacin 750 mg tablet 750 mg PO DAILY #4 tabs 11/28/23 metronidazole 500 mg tablet 500 mg PO Q8H #12 tabs 11/28/23 Physical Exam Const Constitutional Narrative: Up in bed. Nontoxic. Weight / BMI Weight Weight: 64.2 kg Body Mass Index (BMI) 28.5 ABG / Lab / Microbiology Data 11/27/23 05:20 11/28/23 12:10 Laboratory: Laboratory Results - last 24 hr 11/27/23 13:42: POC Glucose 255 H 11/27/23 13:45: Sodium 137, Potassium 3.8, Chloride 112 H, Carbon Dioxide 15.0 L, Anion Gap 10, BUN 13, Creatinine 0.88, Estim Creat Clear Calc 81.30, Est GFR (MDRD) Af Amer 101, Est GFR (MDRD) Non-Af 83, BUN/Creatinine Ratio 14.9, [id number] H, Calcium 7.7 L 11/27/23 15:13: POC Glucose 195 H 11/27/23 16:10: POC Glucose 119 H 11/27/23 16:25: Sodium 138, Potassium 3.2 L, Chloride 114 H, Carbon Dioxide 17.0L, Anion Gap 7, BUN 12, Creatinine 0.84, Estim Creat Clear Calc 85.18, Est GFR (MDRD) Af Amer 105, Est GFR (MDRD) Non-Af 87, BUN/Creatinine Ratio 14.2, [id number], Calcium 7.9 L 11/27/23 17:01: POC Glucose 85 11/27/23 17:53: POC Glucose 92 11/27/23 18:56: POC Glucose 92 11/27/23 19:53: POC Glucose 72 L 11/27/23 20:25: Sodium 141, Potassium 3.0 L, Chloride 116 H, Carbon Dioxide 19.0L, Anion Gap 6, BUN 11, Creatinine 0.68, Estim Creat Clear Calc 105.22, Est GFR (MDRD) Af Amer 135, Est GFR (MDRD) Non-Af 111, BUN/Creatinine Ratio 16.2, Glucose 71 L, Calcium 7.6 L 11/27/23 21:15: POC Glucose 67 L 11/27/23 21:53: POC Glucose 112 H 11/27/23 22:46: Acetone Level SMALL H 11/28/23 00:29: POC Glucose 63 L 11/28/23 00:55: POC Glucose 137 H 11/28/23 02:05: POC Glucose 111 H 11/28/23 02:15: Sodium 140, Potassium 3.1 L, Chloride 114 H, Carbon Dioxide 21.0, Anion Gap 5, BUN 9, Creatinine 0.65, Estim Creat Clear Calc 110.07, Est GFR (MDRD) Af Amer 143, Est GFR (MDRD) Non-Af 118, BUN/Creatinine Ratio 13.9, Glucose 116 H, Calcium 7.9 L 11/28/23 03:05: POC Glucose 104 11/28/23 04:06: POC Glucose 94 11/28/23 05:14: POC Glucose 86 11/28/23 06:12: POC Glucose 103 11/28/23 06:15: Sodium 134 L, Potassium 4.8, Chloride 109 H, Carbon Dioxide 18.0L, Anion Gap 7, BUN 5 L, Creatinine 0.61, Estim Creat Clear Calc 117.91, Est GFR(MDRD) Af Amer 152, Est GFR (MDRD) Non-Af 126, BUN/Creatinine Ratio 8.2 L, Glucose 406 H, Calcium 7.8 L, Acetone Level SMALL H 11/28/23 06:56: POC Glucose 115 H 11/28/23 12:10: Sodium 136, Potassium 3.0 L, Chloride 103, Carbon Dioxide 19.0 L, Anion Gap 14, BUN 4 L, Creatinine 0.62, Estim Creat Clear Calc 116.01, Est GFR(MDRD) Af Amer 150, Est GFR (MDRD) Non-Af 124, BUN/Creatinine Ratio 6.4 L, Glucose 250 H, Calcium 8.7 11/28/23 12:16: POC Glucose 216 H Microbiology: Microbiology 11/26/23 00:42 Mucosa - Throat Streptococcus pyogenes (PCR) - Final D/C Instructions Discharge Diet: 2000 Calorie Control Diet Meaningful Use Info Meaningful Use Meaningful Use Diagnoses (Choose all that apply): None applicable Ischemic Stroke Statin Dosing Therapy Reference: STATIN DOSE THERAPY REFERENCE: * Patients > 75 years receive moderate or high dose statin therapy. * Patients 75 years or YOUNGER should receive HIGH intensity statin dose unless contraindicated. You will be required to document reason for non-treatment if statin daily dose does not meet guidelines. HIGH DOSE STATIN THERAPY DAILY Atorvastatin > than or = to 40 mg Rosuvastatin > than or = to 20 mg Amlodipine + Atorvastatin > than or = to 2.5/40 mg Ezetimibe + Simvastatin 10/80 mg Simvastatin 80mg Discharge Plan Admission Admit Date/Time: 11/26/23 02:06 Primary Reason for Your Visit: Diabetic ketoacidosis Attending Provider: Damien Villagran Primary Care Provider: Minnie Hodge Consulting Providers: Jackeline Rowe; Emery Calle Instructions Patient Instructions: Diabetes Low Blood Sugar Ch, Diabetes Insulin Pump Ch, Diabetes Food Tips Additional Instructions / Restrictions: Please follow-up with your body art technician at your appointment that has been previously scheduled. If you have issues with your insulin pump, notify your primary care doctor or your body art technician. Is possible that he may need to revert back to using her Levemir and mealtime insulin until that is resolved. Informing that he will be having a continuous glucose monitor. If that does notseem to be functioning, please check your blood sugar with meals and at night and as needed. There is also concern that he may have had colitis (inflammation of your colon). Will be on antibiotics for 4 more days. I recommend continuing those antibiotics until those are completed. Discharge Orders/Prescriptions Prescriptions: New levofloxacin 750 mg tablet 750 mg PO DAILY Qty: 4 0RF metronidazole 500 mg tablet 500 mg PO Q8H Qty: 12 0RF Continued hydroxyzine pamoate [Vistaril] 25 mg capsule 25 mg PO QHS Qty: 30 6RF insulin aspart U-100 100 unit/mL solution 100 unit subcut ONCE Qty: 90 0RF (DME) Dexcom G6 Sensor Device See Rx Instructions .Route Qty: 9 0RF Rx Instructions: 1 sensor q 10 days (DME) Dexcom G6 Transmitter Device See Rx Instructions .Route Qty: 1 0RF Rx Instructions: As directed (DME) Omnipod 5 G6 Pods (Gen 5) Cartridge See Rx Instructions .Route Qty: 45 0RF Rx Instructions: change every 48-72 hours albuterol sulfate [Ventolin HFA] 18 GM HFA aerosol inhaler 2 puff inhalation Q4H PRN (Reason: SHORTNES OF BREATH/WHEEZING) fluticasone propionate 50 mcg/actuation spray,suspension 2 spray INTRANASAL DAILY (DME) pen needle, diabetic [BD Ultra-Fine Opal Pen Needle] 32 gauge x 5/32 needle See Rx Instructions .ROUTE .MEDSUPPLY Qty: 120 5RF Rx Instructions: 4 times daily (DME) Ketone Urine Test Strip See Rx Instructions .ROUTE .MEDSUPPLY Qty: 50 1RF Rx Instructions: once/day (DME) Omnipod 5 G6 Intro Kit (Gen 5) Cartridge See Rx Instructions .Route Qty: 1 0RF Rx Instructions: As directed Discontinued amoxicillin-pot clavulanate 875-125 mg tablet 1 tab PO BID 7 Days Qty: 14 0RF oxycodone-acetaminophen [Percocet] 5-325 mg tablet 1 tab PO Q6H PRN (Reason: pain) 3 Days Qty: 12 0RF Referrals / Follow Up: Minnie Hodge [Primary Care Provider] - Within 2 Weeks Disposition Disposition (needs filled in before D/C Order can be placed): Home, Self Care Charges/Coding Visit Charges Inpatient E&M: 24391 Disch Hosp 11/28/23 1405 <Electronically signed by Damien Villagran DO> Cosigner Signature (if applicable): CC: Minnie Hodge; Dr. Damien Villagran DO~ Signed [facility] Work Phone: [phone]) 972-559505-09-2024 Progress note Author Arely Gutierrez [facility] November 27, 2023 1:59pm Note Date/Time November 27, 2023 9:10am [facility] Medical Records Department [address] [facility] [place] [address] Progress Note - Surgery 11/27/23905 MR#: [id number] Acct: [id number] Name: KALIE DESIR Rep #:[id number] : 2000 23 From: Arely CROOKS PA-C PCP: Minnie Hodge Status:ADM I N Location: ICU ICU07-1 Subjective Subjective Patient evaluate dressing comfortably in bed. She denies any further nausea and vomiting. She notes being able to keep fluids down. She denies any loose stools.She notes belching, however no flatus. She denies abdominal pain today. Objective Data Objective Data Vital Signs: Vital Signs Temp Pulse Resp BP Pulse Ox O2 Del Method 99.2 F H 102 H 18 121/71 H 100 Room Air 11/27/23 05:32 11/27/23 05:32 11/27/23 05:32 11/27/23 05:32 11/27/23 05:32 11/27/23 05:32 Oxygen Delivery Method Room Air Weight: 139 lb 15.896 oz Body Mass Index (BMI) 28.2 Intake & Output: Intake and Output for Last 24 Hours 11/25/23 11/26/23 11/27/23 23:59 23:59 23:59 Intake Total 3636.52 / 3836.52 2259.49 / 2259.49 Output Total 1200 / 1200 Balance 3636.52 / 2636.52 1059.49 / 1059.49 Lab / Micro Data 11/27/23 05:20 11/27/23 08:51 Labs: Laboratory Results - last 24 hr 11/26/23 00:54: Hemoglobin A1c 10.5 H 11/26/23 08:46: POC Glucose 180 H 11/26/23 09:28: POC Glucose 205 H 11/26/23 10:48: POC Glucose 189 H 11/26/23 12:51: POC Glucose 195 H 11/26/23 13:00: Sodium 139, Potassium 3.7, Chloride 111 H, Carbon Dioxide 19.0 L, Anion Gap 9, BUN 22 H, Creatinine 0.93, Estim Creat Clear Calc 77.05, Est GFR (MDRD) Af Amer 94, Est GFR (MDRD) Non-Af 77, BUN/Creatinine Ratio 23.6 H, Glucose 225 H, Calcium 9.1 11/26/23 14:02: POC Glucose 185 H 11/26/23 14:51: POC Glucose 178 H 11/26/23 15:40: Sodium 137, Potassium 3.6, Chloride 110 H, Carbon Dioxide 20.0 L, Anion Gap 7, BUN 19 H, Creatinine 0.81, Estim Creat Clear Calc 88.46, Est GFR (MDRD) Af Amer 110, Est GFR (MDRD) Non-Af 91, BUN/Creatinine Ratio 23.5 H, Glucose 229 H, Calcium 8.7 11/26/23 15:42: POC Glucose 202 H 11/26/23 19:55: Urine Test Negative 11/26/23 21:47: POC Glucose 377 H 11/27/23 03:12: POC Glucose 373 H 11/27/23 05:20: WBC 19.5 H, RBC 4.89, Hgb 13.4, Hct 42.6, MCV 87.1, MCH 27.4, MCHC 31.5 L, RDW Std Deviation 42.5, RDW Coeff of Marilynn 13.5, Plt Count 386, MPV 9.0, Immature Gran % (Auto) 0.500, Neut % (Auto) 85.7 H, Lymph % (Auto) 9.7 L, [place] % (Auto) 4.0, Eos % (Auto) 0.0, Baso % (Auto) 0.1, Absolute Neuts (auto) 16.7 H, Absolute Lymphs (auto) 1.90, Nucleated RBC % 0, Sodium 133 L, Potassium 4.4, Chloride 106, Carbon Dioxide 10.0 L, Anion Gap 17 H, BUN 14, Creatinine 0.98, Estim Creat Clear Calc 73.01, Est GFR (MDRD) Af Amer 89, Est GFR (MDRD) Non-Af 73, BUN/Creatinine Ratio 14.3, Glucose 414 H, Calcium 8.6 11/27/23 07:28: POC Glucose 410 H Micro: Microbiology 11/26/23 00:42 Mucosa - Throat Streptococcus pyogenes (PCR) - Final Physical Exam GI GI Narrative: Abdomen- slight distention, soft. Hypoactive bowel sounds Assessment & Plan Assessment/Plan (1) Abdominal pain: QUALIFIERS: Abdominal location: lower abdomen, unspecified Qualified Code(s): R10.30 - Lower abdominal pain, unspecified PLAN: I am seeing this patient in conjunction with Dr. Calle. He has independently evaluated this patient. Patient's abdominal pain has resolved Labs reviewed. WBC is decreasing No surgical intervention is being recommended at this time We will continue to monitor this patient Charges/Coding Visit Charges Inpatient E&M: 00474 Subs Hosp L1 11/27/23 1359 <Electronically signed by Arely CROOKS PA-C> Cosigner Signature (if applicable): CC: ~ Signed [facility] Work Phone: [phone]) 180-647305-09-2024 Progress note Author Damien Villagran [facility] November 27, 2023 1:38pm Note Date/Time November 27, 2023 9:38am [facility] Medical Records Department [address] [place] [address] Progress Note - Hospitalist 11/27/23 0935 MR#: [id number] Acct: [id number] Name: KALIE DESIR Rep #:[id number] : 2000 23 From: Damien Villagran DO PCP: Minnie Hodge Status:ADM I N Location: ICU ICU07-1 Reason for Visit Reason for Visit: Diagnoses Type 1 diabetes mellitus with ketoacidosis without coma (11/26/23) Type 1 diabetes mellitus with hyperglycemia (11/26/23) Unspecified appendicitis (11/26/23) Noninfective gastroenteritis and colitis, unspecified (11/26/23) Lower abdominal pain, unspecified (11/26/23) Nausea with vomiting, unspecified (11/26/23) Patient's noncompliance with other medical treatment and regimen due to unspecified reason (11/26/23) Subjective Subjective Patient has been eating. Despite that, her glucose has remained uncontrolled and her anion gap has increased and carbon oxide has gone down. Objective Data Objective Data Vital Signs: Vital Signs Temp Pulse Resp BP Pulse Ox O2 Del Method 37.3 C H 102 H 18 121/71 H 100 Room Air 11/27/23 05:32 11/27/23 05:32 11/27/23 05:32 11/27/23 05:32 11/27/23 05:32 11/27/23 05:32 Oxygen Delivery Method Room Air Weight: 63.5 kg Body Mass Index (BMI) 28.2 Intake & Output: Intake and Output for Last 24 Hours 11/25/23 11/26/23 11/27/23 23:59 23:59 23:59 Intake Total 3636.52 / 3836.52 2259.49 / 2259.49 Output Total 1200 / 1200 Balance 3636.52 / 2636.52 1059.49 / 1059.49 Lab / Micro Data 11/27/23 05:20 11/27/23 08:51 Labs: Laboratory Results - last 24 hr 11/26/23 00:54: Hemoglobin A1c 10.5 H 11/26/23 09:28: POC Glucose 205 H 11/26/23 10:48: POC Glucose 189 H 11/26/23 12:51: POC Glucose 195 H 11/26/23 13:00: Sodium 139, Potassium 3.7, Chloride 111 H, Carbon Dioxide 19.0 L, Anion Gap 9, BUN 22 H, Creatinine 0.93, Estim Creat Clear Calc 77.05, Est GFR (MDRD) Af Amer 94, Est GFR (MDRD) Non-Af 77, BUN/Creatinine Ratio 23.6 H, Glucose 225 H, Calcium 9.1 11/26/23 14:02: POC Glucose 185 H 11/26/23 14:51: POC Glucose 178 H 11/26/23 15:40: Sodium 137, Potassium 3.6, Chloride 110 H, Carbon Dioxide 20.0 L, Anion Gap 7, BUN 19 H, Creatinine 0.81, Estim Creat Clear Calc 88.46, Est GFR (MDRD) Af Amer 110, Est GFR (MDRD) Non-Af 91, BUN/Creatinine Ratio 23.5 H, Glucose 229 H, Calcium 8.7 11/26/23 15:42: POC Glucose 202 H 11/26/23 19:55: Urine Test Negative 11/26/23 21:47: POC Glucose 377 H 11/27/23 03:12: POC Glucose 373 H 11/27/23 05:20: WBC 19.5 H, RBC 4.89, Hgb 13.4, Hct 42.6, MCV 87.1, MCH 27.4, MCHC 31.5 L, RDW Std Deviation 42.5, RDW Coeff of Marilynn 13.5, Plt Count 386, MPV 9.0, Immature Gran % (Auto) 0.500, Neut % (Auto) 85.7 H, Lymph % (Auto) 9.7 L, [place] % (Auto) 4.0, Eos % (Auto) 0.0, Baso % (Auto) 0.1, Absolute Neuts (auto) 16.7 H, Absolute Lymphs (auto) 1.90, Nucleated RBC % 0, Sodium 133 L, Potassium 4.4, Chloride 106, Carbon Dioxide 10.0 L, Anion Gap 17 H, BUN 14, Creatinine 0.98, Estim Creat Clear Calc 73.01, Est GFR (MDRD) Af Amer 89, Est GFR (MDRD) Non-Af 73, BUN/Creatinine Ratio 14.3, Glucose 414 H, Calcium 8.6 11/27/23 07:28: POC Glucose 410 H 11/27/23 08:51: Sodium 132 L, Potassium 4.1, Chloride 107, Carbon Dioxide 8.0 L*, Anion Gap 17 H, BUN 14, Creatinine 1.08 H, Estim Creat Clear Calc 66.25, Est GFR (MDRD) Af Amer 79, Est GFR (MDRD) Non-Af 65, BUN/Creatinine Ratio 13.0, Glucose 346 H, Calcium 8.6 Micro: Microbiology 11/26/23 00:42 Mucosa - Throat Streptococcus pyogenes (PCR) - Final Physical Exam Const alert and no apparent distress HEENT head/scalp atraumatic and moist oral mucous membranes Psych affect normal Assessment & Plan Assessment/Plan (1) DKA (diabetic ketoacidosis): QUALIFIERS: Diabetes mellitus type: type 1 Diabetes mellitus complication detail: without coma Qualified Code(s): E10.10 - Type 1 diabetes mellitus with ketoacidosis without coma (2) Type 1 diabetes mellitus with hyperglycemia: (3) Non-compliance: (4) Acute colitis: (5) Appendicitis: QUALIFIERS: Appendicitis type: unspecified Qualified Code(s): K37- Unspecified appendicitis PLAN: Plan Acute DKA * in type 1 diabetic. due to insulin pump running out, going to bed w/o insulin. * Started on IVF and IV insulin. Got out of DKA yesterday and went to appear to go back into it again today. Patient did receive a dose of about 20 units of glargine this morning. Feel the patient is more and more likely to continue to slide into DKA so we will place patient back in the intensive care units and resume insulin drip as well as continue with IV fluids, NPO. * I emphasized to the patient today that she needs to take full ownership over her diabetes as she is currently 23 years old with type 1 diabetes and the fact that she just pulled the insulin pump off when it ran out is rather meager excuse for her current issues. Acute Colitis * Not felt to be appendicitis nor colitis by general surgery. * on abx with levofloxacin and metronidazole and will continue given her ongoing leukocytosis. * Gen Surg consulted. Feels less likely appendicitis. No imminent plans for surgery. Chronic conditions: * History of asthma - Stable with no evidence of acute flare. Continue prn ne bulizers. * Depression with anxiety - Continue home regimen plus give prn Vistaril for breakthrough symptoms. * History of cannabis abuse - Cannabis cessation will be strongly encouraged. VTE prophylaxis - enoxaparin Charges/Coding Visit Charges Inpatient E&M: 63656 Subs Hosp L2 11/27/23 0938 <Electronically signed by Damien Villagran DO> Cosigner Signature (if applicable): CC: ~ Signed ADDENDUM by Dr. Damien Villagran DO on 11/27/23 at 1338 Addendum Patient has been admitted to [facility] 14 times since 2018. 11/27/23 1338<Electronically signed by Damine Villagran DO> Cosigner Signature (if applicable): cc: ~* Signed [facility] Work Phone: [phone]) [phone] Consult note Author Emery Calle [facility] November 26, 2023 4:28pm Note Date/Time November 26, 2023 9:02am [facility] Medical Records Department [address] [place] [address] Consultation - Surgical 11/26/23 0859 MR#: [id number] Acct: [id number] Name: KALIE DESIR Rep #:[id number] : 2000 23 From: Arely CROOKS PA-C PCP: Minnie Hodge Status:ADM I N Location: ICU ICU08-[address] Emery Calle MD on 11/26/23 at 1628 Addendum Patient seen and examined during afternoon rounds (there was a delay in being able to see patient on the account of patient receiving a PICC line earlier today). I was consulted to consider patient for diagnosis of possible early acute appendicitis. However, I agree with documentation given by DAKSHA Hoffman that suggest patient's presentation is highly atypical for appendicitis. Shedescribes a 1 day history of abdominal pain that followed a period of nausea andvomiting. Patient describes the pain as having remitted since her arrival to the ICU and expresses an appetite. On exam patient has no right lower quadrant tenderness over McBurney's point. Further, she has negative Rovsing, obturator,and psoas signs. I have reviewed her CT imaging and there are no secondary signs of acute appendicitis with haziness of the soft tissues or fluid. Based on the location of her appendix relative to the psoas muscle I would expect a positive psoas sign on exam and this, as stated above, is negative. Therefore, I do not find clinical evidence to support this diagnosis. Additionally, I would question the presence of colitis being present in this patient as she denies any irregularity of her bowels. I briefly discussed with her the need to improve her glucose control as she is at risk for infections, but at this time find no cause to pursue surgical intervention for her appendix. Recommend ongoing care to treat her DKA and search for additional sources of infection. Without the surgical indication, patient is free to resume a diet from a surgical standpoint. Emery Calle MD General Surgery Endocrine Surgery Pager: [facility] [address] [place] [address], [facility], [address] [place] [address] Office: [phone] 11/26/23 7374<Electronically signed by Emery Calle MD> Cosigner Signature (if applicable): cc: Minnie Burch Hodge ~* Signed Assessment & Plan Assessment/Plan (1) Acute colitis: (2) Abdominal pain: QUALIFIERS: Abdominal location: lower abdomen, unspecified Qualified Code(s): R10.30 - Lower abdominal pain, unspecified (3) Nausea & vomiting: QUALIFIERS: Vomiting type: unspecified Qualified Code(s): R11.2 -Nausea with vomiting, unspecified PLAN: Plan I have been consulted in conjunction with Dr. Calle. He will independently evaluate this patient. Patient is a poor historian who presents with 1 day history of acute onset of nausea, vomiting and abdominal pain located in the lower pelvis. She related her symptoms to being associated with DKA as her bloodglucose has been running high. Once presented at the ED, CT scan found early/mild colitis as well as possible early appendicitis. Patient is currently on IV antibiotics, she is admitted to ICU. Patient's symptoms are not consistentwith classical appendicitis symptoms. I will discuss patient with Dr. Calle. Continue IV antibiotics for treatment of colitis at this time. Recommend continued control of patient's diabetes. Patient has had the opportunity to ask and have questions answered. Patient verbally understands and agrees with the plan. Thank you for allowing us to participate in this patient's care. HPI Consult Data Date of Consult: 11/26/23 HPI Narrative Reason for Consultation: Abdominal pain HPI Narrative: KALIE DESIR, is a 23 F who presents with 1 day history of nausea, vomiting andabdominal pain. Patient is a very poor historian and very restless laying in bed. Patient states yesterday morning she woke up an started vomiting. This continued all day long. She notes her vomiting was associated with lower abdominal pain. 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 She denies any personal or family history of inflammatory bowel disease. She denies previous colonoscopy. She notes being hospitalized at the end of September with DKA. She notes having abdominal pain at that time, however this time she notes it being a little different. She can't tell why specificallyit is different. She notes that ice water or drinking water makes her feel better. She notes this also makes her abdominal pain feel better. She notes having a lack of appetite over the last few weeks. She notes just doesn't feel like eating. She notes her abdominal pain is a 6 out of 10 at rest. She noted the car ride in was comfortable and that she slept the entire way in. She statedit did not make the abdominal pain worse. Patient was also evaluated in the ED 2 weeks ago for her lip ring becoming caught in her lip following drinking a can of pop. Her lip ring was removed. Shewas treated with 14 days of Augmentin for infection prophylaxis. Patient is a type 1 diabetic and has an insulin pump. 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 Patientnotes her blood glucose has been running high lately. CT scan of the ab/pel was obtained in the ED demonstrating collapsed and questionably mild thickened- wall of most of the colon. possible early or mild colitis. Borderline gasless appendix, measurements of 5 to 7 mm. No surrounding inflammation to confirm acute appendicitis. Cannot exclude very early appendicitis. No free fluid. Small retroperitoneal and mesenteric lymph nodes, stable. WBC 24.5, Hgb 15.7, Hct 48.7, Plt 444. Neut 91.9. [facility] Medical History Anxiety and depression Asthma Cannabis hyperemesis syndrome concurrent with and due to cannabis abuse Diabetes type 1, controlled Diabetic ketoacidosis DKA, type 1 History of marijuana use Hypokalemia Hypophosphatemia Implanon in place Insulin pump titration Presence of insulin pump Tachycardia Home Medications albuterol sulfate 90 mcg/actuation aerosol inhaler (Ventolin HFA) 2 puff inhalation Q4H PRN SHORTNES OF BREATH/WHEEZING 08/25/18 [History Last Taken 03/02/23] Ketone Urine Test (acetone (urine) test) #50 ea 11/05/21 [Rx Last Taken Unknown] fluticasone propionate 50 mcg/actuation nasal spray,suspension 2 spray intranasal DAILY NASAL CONGESTION 11/21/22 [History Last Taken 02/12/23] pen needle, diabetic 32 gauge x 5/32 (BD Ultra-Fine Opal Pen Needle) #120 ea 11/23/22 [Rx Last Taken Unknown] hydroxyzine pamoate 25 mg capsule (Vistaril) 25 mg PO QHS ITCHING #30 caps 01/13/23 [Rx Last Taken 02/12/23] insulin pump cartridge,automated dose,BT with controller subcutaneous (Omnipod 5G6 Intro Kit (Gen 5) subcutaneous cartridge with controller) #1 ea 08/15/23 [Rx Last Taken Unknown] blood-glucose sensor (Dexcom G6 Sensor device) #9 ea 11/10/23 [Rx Last Taken Unknown] blood-glucose transmitter (Dexcom G6 Transmitter device) #1 ea 11/10/23 [Rx Last Taken Unknown] insulin aspart U-100 100 unit/mL subcutaneous solution 100 unit subcut ONCE #90 mL 11/10/23 [Rx Last Taken Unknown] insulin pump cart,automated,BT (Omnipod 5 G6 Pods (Gen 5) subcutaneous cartridge) #45 ea 11/10/23 [Rx Last Taken Unknown] amoxicillin 875 mg-potassium clavulanate 125 mg tablet 1 tab PO BID 7 days #14 tabs 11/11/23 [Rx Last Taken Unknown] oxycodone-acetaminophen 5 mg-325 mg tablet (Percocet) 1 tab PO Q6H PRN pain 3 days #12 tabs 11/11/23 [Rx Last Taken Unknown] Allergy/AdvReac Type Severity Reaction Status Date / Time bee venom protein (honey bee) Allergy Severe Anaphylaxis Verified 11/25/23 23:00 [bee stings] Penicillins Allergy Unknown Verified 11/25/23 23:00 Sulfa (Sulfonamide Allergy Unknown Verified 11/25/23 23:00 Antibiotics) prednisone AdvReac Vomiting Verified 11/25/23 23:00 Family History Grandmother Diabetes Sister Asthma Brother Asthma Mother Heart disease Surgical History History of placement of ear tubes Social History household members: family Smoking Status: Never smoker second hand exposure: No alcohol intake: never substance use type: other details: Cannabis, last use ~ 1 month prior, ingested. ROS Constitutional Constitutional: Reports fatigue Eyes Eyes: Reports systems reviewed and no addt'l complaints, except as documented ENT HEENT: Reports systems reviewed and no addt'l complaints, except as documented Cardiovascular Cardiovascular: Reports systems reviewed and no addt'l complaints, except as documented Respiratory/Chest Respiratory/Chest: Reports systems reviewed and no addt'l complaints, except as documented Gastrointestinal Gastrointestinal: Reports systems reviewed and no addt'l complaints, except as documented Genitourinary Genitourinary: Reports systems reviewed and no addt'l complaints, except as documented Musculoskeletal Musculoskeletal: Reports systems reviewed and no addt'l complaints, except as documented Integumentary Integumentary: Reports systems reviewed and no addt'l complaints, except as documented Neurologic Neurologic: Reports systems reviewed and no addt'l complaints, except as documented Psychiatric Psychiatric: Reports systems reviewed and no addt'l complaints, except as documented Endocrine Endocrinology: Reports systems reviewed and no addt'l complaints, except as documented Hematologic/Lymphatic Hematologic/Lymphatic: Reports systems reviewed and no addt'l complaints, exceptas documented Allergic/Immunologic Allergic/Immunologic: Reports systems reviewed and no addt'l complaints, except as documented Physical Exam Const alert and oriented x3 Constitutional Narrative: restless HEENT normocephalic and head/scalp atraumatic Eyes PERRL and EOMs intact bilaterally Neck full ROM Lymph Lymphatic: no lymphadenopathy noted Resp normal respiratory effort and clear to auscultation bilaterally Cardio Rate: tachycardic Rhythm: regular rhythm GI GI Narrative: Abdomen- soft, tenderness palpated in the lower pelvic region. Hypoactive bowel sounds no CVA tenderness Back/Spine no CVA tenderness Extremity normal to inspection Skin no rashes or lesions noted Neuro no focal motor deficits and no sensory deficits noted Psych mental status grossly normal and thought process normal Lab / Micro Data 11/26/23 00:54 11/26/23 13:00 Labs: Laboratory Results - last 24 hr 11/25/23 23:02: POC Glucose 486 H* 11/25/23 23:42: POC Glucose 415 H 11/26/23 00:54: WBC 24.5 H, RBC 5.62 H, Hgb 15.7 H, Hct 48.7 H, MCV 86.7, MCH 27.9, MCHC 32.2, RDW Std Deviation 41.1, RDW Coeff of Marilynn 13.1, Plt Count 444, MPV 9.4, Immature Gran % (Auto) 2.000 H, Neut % (Auto) 91.9 H, Lymph % (Auto) 3.4 L, [place] % (Auto) 2.4, Eos % (Auto) 0.0, Baso % (Auto) 0.3, Absolute Neuts (auto) 22.5 H, Absolute Lymphs (auto) 0.84, Nucleated RBC % 0, Differential Comment SCANNED, Atypical Lymphocytes 1+, Sodium 137, Potassium 3.8, Chloride 103, Carbon Dioxide 7.0 L*, Anion Gap 27 H, BUN 20 H, Creatinine 1.00, Estim Creat Clear Calc 72.78, Est GFR (MDRD) Af Amer 86, Est GFR (MDRD) Non-Af 71, BUN/Creatinine Ratio 20.0, Glucose 424 H, Lactic Acid Cancelled, Calcium 9.6, Magnesium 1.9, Total Bilirubin 0.70, Direct Bilirubin 0.17, AST 17, ALT 18, Alkaline Phosphatase 116, Total Protein 8.6 H, Albumin 4.8, Globulin 3.8, [id number], Acetone Level MODERATE H 11/26/23 01:15: Urine Color Yellow, Urine Clarity Clear, Urine pH 5.0, Ur Specific [place] 1.025, Urine Protein 100 H, Urine Glucose (UA) 1000 H, Urine Ketones 150 A*, Urine Occult Blood 10 H, Urine Nitrite Negative, Urine BilirubinNegative, Urine Urobilinogen Normal, Ur Leukocyte Esterase Negative, Urine RBC 0SEEN, Urine WBC 0 SEEN, Ur Squamous Epith Cells 0 SEEN, Urine Bacteria 0 SEEN, Urine Mucus 0 SEEN, Urine Test Negative 11/26/23 02:54: POC Glucose 299 H 11/26/23 04:03: POC Glucose 275 H 11/26/23 05:26: POC Glucose 197 H 11/26/23 06:22: POC Glucose 200 H 11/26/23 06:23: Sodium 139, Potassium 3.7, Chloride 111 H, Carbon Dioxide 11.0 L, Anion Gap 17 H, BUN 20 H, Creatinine 1.05 H, Estim Creat Clear Calc 69.32, EstGFR (MDRD) Af Amer 82, Est GFR (MDRD) Non-Af 68, BUN/Creatinine Ratio 19.0, Glucose 228 H, Calcium 9.4 11/26/23 07:30: POC Glucose 187 H Micro: Microbiology 11/26/23 00:42 Mucosa - Throat Streptococcus pyogenes (PCR) - Final ABG Data ABG results: ABG 11/26/23 01:01 Specimen Type LUIS Sample Site Not entered VBG pH 7.17 L* VBG pO2 102 H VBG HCO3 7 L VBG Total CO2 8 L VBG O2 Sat (Calc) 96 H VBG Base Excess -22 L POC Mix VBG pCO2 Pt Tmp 19.1 L O2 Delivery Device Room Air Crit Call To/Read Back Yes Blood Gas Notified Whom Dr. Mina Blood Gas Notified Time 01:02:40 Imaging Radiology Impression Abdomen/Pelvis CT 11/26/23 02:43 IMPRESSION: 1. Collapsed and questionably mildly thick-walled appearance of most of the colon. Correlate with any leukocytosis or diarrhea. Possible early or mild colitis. 2. Borderline gasless appendix, measurements of 5 mm to 7 mm. No surrounding inflammation to confirm acute appendicitis. Cannot exclude very early appendicitis. 3. No free fluid. 4. Small retroperitoneal and mesenteric lymph nodes, stable. Electronically Signed: Anna Enriquez MD at 4:17 EDT , Charges/Coding Visit Charges Office Visits / Consults: 09145 IP Consult L3 11/26/23 1444 <Electronically signed by Arely CROOKS PA-C> Cosigner Signature (if applicable): CC: Minnie Hodge~ Signed [facility] Work Phone: 1(136) 537-357505-08-2024 Progress note Author Damien Villagran [facility] November 26, 2023 1:56pm Note Date/Time November 26, 2023 9:28am [facility] Medical Records Department [address] [place] [address] Progress Note - Hospitalist 11/26/23 0926 MR#: [id number] Acct: [id number] Name: THANGKALIE AFIA Rep #:[id number] : 2000 23 From: Damien Villagran DO PCP: Minnie Hodge Status:ADM I N Location: ICU ICU08-1 Reason for Visit Reason for Visit: Diagnoses Type 1 diabetes mellitus with ketoacidosis without coma (11/26/23) Type 1 diabetes mellitus with hyperglycemia (11/26/23) Unspecified appendicitis (11/26/23) Noninfective gastroenteritis and colitis, unspecified (11/26/23) Patient's noncompliance with other medical treatment and regimen due to unspecified reason (11/26/23) Subjective Subjective Still with abdominal pain. Pain in lower abdomen. Objective Data Objective Data Vital Signs: Vital Signs Temp Pulse Resp BP Pulse Ox O2 Del Method 36.4 C L 123 H 21 H 129/98 H 99 Room Air 11/26/23 08:35 11/26/23 08:58 11/26/23 08:58 11/26/23 08:58 11/26/23 08:58 11/26/23 08:58 Oxygen Delivery Method Room Air Weight: 63.7 kg Body Mass Index (BMI) 28.3 Intake & Output: Intake and Output for Last 24 Hours 11/24/23 11/25/23 11/26/23 23:59 23:59 23:59 Intake Total 1040.08 / 1040.08 Balance 1040.08 / 1040.08 Lab / Micro Data 11/26/23 00:54 11/26/23 13:00 Labs: Laboratory Results - last 24 hr 11/25/23 23:02: POC Glucose 486 H* 11/25/23 23:42: POC Glucose 415 H 11/26/23 00:54: WBC 24.5 H, RBC 5.62 H, Hgb 15.7 H, Hct 48.7 H, MCV 86.7, MCH 27.9, MCHC 32.2, RDW Std Deviation 41.1, RDW Coeff of Marilynn 13.1, Plt Count 444, MPV 9.4, Immature Gran % (Auto) 2.000 H, Neut % (Auto) 91.9 H, Lymph % (Auto) 3.4 L, [place] % (Auto) 2.4, Eos % (Auto) 0.0, Baso % (Auto) 0.3, Absolute Neuts (auto) 22.5 H, Absolute Lymphs (auto) 0.84, Nucleated RBC % 0, Differential Comment SCANNED, Atypical Lymphocytes 1+, Sodium 137, Potassium 3.8, Chloride 103, Carbon Dioxide 7.0 L*, Anion Gap 27 H, BUN 20 H, Creatinine 1.00, Estim Creat Clear Calc 72.78, Est GFR (MDRD) Af Amer 86, Est GFR (MDRD) Non-Af 71, BUN/Creatinine Ratio 20.0, Glucose 424 H, Lactic Acid Cancelled, Calcium 9.6, Magnesium 1.9, Total Bilirubin 0.70, Direct Bilirubin 0.17, AST 17, ALT 18, Alkaline Phosphatase 116, Total Protein 8.6 H, Albumin 4.8, Globulin 3.8, [id number], Acetone Level MODERATE H 11/26/23 01:15: Urine Color Yellow, Urine Clarity Clear, Urine pH 5.0, Ur Specific [place] 1.025, Urine Protein 100 H, Urine Glucose (UA) 1000 H, Urine Ketones 150 A*, Urine Occult Blood 10 H, Urine Nitrite Negative, Urine BilirubinNegative, Urine Urobilinogen Normal, Ur Leukocyte Esterase Negative, Urine RBC 0SEEN, Urine WBC 0 SEEN, Ur Squamous Epith Cells 0 SEEN, Urine Bacteria 0 SEEN, Urine Mucus 0 SEEN, Urine Test Negative 11/26/23 02:54: POC Glucose 299 H 11/26/23 04:03: POC Glucose 275 H 11/26/23 05:26: POC Glucose 197 H 11/26/23 06:22: POC Glucose 200 H 11/26/23 06:23: Sodium 139, Potassium 3.7, Chloride 111 H, Carbon Dioxide 11.0 L, Anion Gap 17 H, BUN 20 H, Creatinine 1.05 H, Estim Creat Clear Calc 69.32, EstGFR (MDRD) Af Amer 82, Est GFR (MDRD) Non-Af 68, BUN/Creatinine Ratio 19.0, Glucose 228 H, Calcium 9.4 11/26/23 07:30: POC Glucose 187 H 11/26/23 08:46: POC Glucose 180 H Micro: Microbiology 11/26/23 00:42 Mucosa - Throat Streptococcus pyogenes (PCR) - Final ABG Data ABG results: ABG 11/26/23 01:01 Specimen Type LUIS Sample Site Not entered VBG pH 7.17 L* VBG pO2 102 H VBG HCO3 7 L VBG Total CO2 8 L VBG O2 Sat (Calc) 96 H VBG Base Excess -22 L POC Mix VBG pCO2 Pt Tmp 19.1 L O2 Delivery Device Room Air Crit Call To/Read Back Yes Blood Gas Notified Whom Dr. Mina Blood Gas Notified Time 01:02:40 Radiography Diagnostic Testing: Radiology Impression Abdomen/Pelvis CT 11/26/23 02:43 IMPRESSION: 1. Collapsed and questionably mildly thick-walled appearance of most of the colon. Correlate with any leukocytosis or diarrhea. Possible early or mild colitis. 2. Borderline gasless appendix, measurements of 5 mm to 7 mm. No surrounding inflammation to confirm acute appendicitis. Cannot exclude very early appendicitis. 3. No free fluid. 4. Small retroperitoneal and mesenteric lymph nodes, stable. Electronically Signed: Anna Enriquez MD at 4:17 EDT , Physical Exam Const alert and no apparent distress HEENT head/scalp atraumatic Resp normal respiratory effort, no retractions, no use of accessory muscles and clearto auscultation bilaterally Cardio regular rate, regular rhythm, S1 normal heart sound and S2 normal heart sound GI normal to inspection, nondistended, normoactive bowel sounds, soft to palpation,non-tender and non-distended Extremity normal to inspection Neuro Sensorium / Orientation: awake and alert Assessment & Plan Assessment/Plan (1) DKA (diabetic ketoacidosis): QUALIFIERS: Diabetes mellitus complication detail: without coma Diabetes mellitus type: type 1 Qualified Code(s): E10.10 - Type 1 diabetes mellitus with ketoacidosis without coma (2) Type 1 diabetes mellitus with hyperglycemia: (3) Non-compliance: (4) Acute colitis: (5) Appendicitis: QUALIFIERS: Appendicitis type: unspecified Qualified Code(s): K37- Unspecified appendicitis PLAN: Plan Acute DKA * in type 1 diabetic. due to insulin pump running out, going to bed w/o insulin. * Started on IVF and IV insulin. Acute Colitis * questionable appendicitis * on abx with levofloxacin and metronidazole * Gen Surg consulted. Feels less likely appendicitis. No imminent plans for surgery. Chronic conditions: * History of asthma - Stable with no evidence of acute flare. Continue prn nebulizers. * Depression with anxiety - Continue home regimen plus give prn Vistaril for breakthrough symptoms. * History of cannabis abuse - Cannabis cessation will be strongly encouraged. VTE prophylaxis - enoxaparin Charges/Coding Procedures Hospitalists Procedures: Other Procedure - See Report (Nonbillable rounding as patient was admitted after midnight.) 11/26/23 1356 <Electronically signed by Damien Villagran DO> Cosigner Signature (if applicable): CC: ~ Signed [facility] Work Phone: 1(206) 705-491005-08-2024 Procedure [facility] 11-26-2023 Discharge summary Author Sunil Mina [facility] November 26, 2023 6:53am Note Date/Time November 26, 2023 1:52am [facility] Medical Records Department [address] [facility] [place] [address] Emergency Department Summary 11/26/23 MR#: [id number] Acct: [id number] Name: KALIE DESIR Rep #:[id number] : 2000 23 From: Sunil Mina DO PCP: Minnie Hodge Status:REG E R Location: ED HPI History of Present Illness Chief Complaint: Hyperglycemia Informant: patient Narrative Narrative: Patient is a 23-year-old female with history of type 1 diabetes. She states that her insulin pump stopped working yesterday and after returning from work she was tired and went to bed and spent approximately 6 hours without the pump on. She states when she awoke she had generalized abdominal discomfort with bouts of nausea and vomiting. She states she checked her sugar and it was elevated and so she gave herself insulin. She states she has been trying to control her symptoms throughout the day but has not had any improvement and withconcern she is developing DKA she comes into the hospital for evaluation [facility] Medical History Anxiety and depression Asthma Cannabis hyperemesis syndrome concurrent with and due to cannabis abuse Diabetes type 1, controlled Diabetic ketoacidosis DKA, type 1 History of marijuana use Hypokalemia Hypophosphatemia Implanon in place Insulin pump titration Presence of insulin pump Tachycardia Home Medications albuterol sulfate 90 mcg/actuation aerosol inhaler (Ventolin HFA) 2 puff inhalation Q4H PRN SHORTNES OF BREATH/WHEEZING 08/25/18 [History Last Taken 03/02/23] Ketone Urine Test (acetone (urine) test) #50 ea 11/05/21 [Rx Last Taken Unknown] fluticasone propionate 50 mcg/actuation nasal spray,suspension 2 spray intranasal DAILY NASAL CONGESTION 11/21/22 [History Last Taken 02/12/23] pen needle, diabetic 32 gauge x 5/32 (BD Ultra-Fine Opal Pen Needle) #120 ea 11/23/22 [Rx Last Taken Unknown] hydroxyzine pamoate 25 mg capsule (Vistaril) 25 mg PO QHS ITCHING #30 caps 01/13/23 [Rx Last Taken 02/12/23] insulin pump cartridge,automated dose,BT with controller subcutaneous (Omnipod 5G6 Intro Kit (Gen 5) subcutaneous cartridge with controller) #1 ea 08/15/23 [Rx Last Taken Unknown] blood-glucose sensor (Dexcom G6 Sensor device) #9 ea 11/10/23 [Rx Last Taken Unknown] blood-glucose transmitter (Dexcom G6 Transmitter device) #1 ea 11/10/23 [Rx Last Taken Unknown] insulin aspart U-100 100 unit/mL subcutaneous solution 100 unit subcut ONCE #90 mL 11/10/23 [Rx Last Taken Unknown] insulin pump cart,automated,BT (Omnipod 5 G6 Pods (Gen 5) subcutaneous cartridge) #45 ea 11/10/23 [Rx Last Taken Unknown] amoxicillin 875 mg-potassium clavulanate 125 mg tablet 1 tab PO BID 7 days #14 tabs 11/11/23 [Rx Last Taken Unknown] oxycodone-acetaminophen 5 mg-325 mg tablet (Percocet) 1 tab PO Q6H PRN pain 3 days #12 tabs 11/11/23 [Rx Last Taken Unknown] Allergy/AdvReac Type Severity Reaction Status Date / Time bee venom protein (honey bee) Allergy Severe Anaphylaxis Verified 11/25/23 23:00 [bee stings] Penicillins Allergy Unknown Verified 11/25/23 23:00 Sulfa (Sulfonamide Allergy Unknown Verified 11/25/23 23:00 Antibiotics) prednisone AdvReac Vomiting Verified 11/25/23 23:00 Family History Grandmother Diabetes Sister Asthma Brother Asthma Mother Heart disease Surgical History History of placement of ear tubes Social History household members: family Smoking Status: Never smoker second hand exposure: No alcohol intake: never substance use type: other details: Cannabis, last use ~ 1 month prior, ingested. ROS ROS ED Constitutional Constitutional ED: Denies chills or fever(s) Eyes Eyes: Denies change in vision ENT ENT ED: Reports sore throat Cardiovascular Cardiovascular: Denies chest pain Respiratory/Chest Respiratory/Chest: Denies cough or dyspnea Gastrointestinal Gastrointestinal: Reports abdominal pain, nausea and vomiting; Denies diarrhea Genitourinary Genitourinary ED: Denies dysuria Musculoskeletal Musculoskeletal: Reports myalgias Integumentary Denies rash Neurologic Neurologic: Denies headache(s) Hematologic/Lymphatic Hematologic/Lymphatic: Denies easy bleeding or easy bruising EXAM Physical Exam Const Vital Signs: 11/25/23 22:58 11/25/23 23:38 11/26/23 00:00 Temperature 97.6 F L 98.7 F Temperature Source Temporal Oral Pulse Rate 128 H 116 H Respiratory Rate 16 18 Respiratory Effort Normal Respiratory Pattern Normal Blood Pressure 128/83 H 158/83 H Blood Pressure Mean 98 108 Pulse Ox 100 99 Oxygen Delivery Method Room Air Room Air 11/26/23 01:00 11/26/23 02:00 11/26/23 02:00 Temperature 98.9 F 98.0 F Temperature Source Oral Temporal Pulse Rate 115 H 110 H 110 H Respiratory Rate 19 H 21 H 21 H Respiratory Effort Respiratory Pattern Blood Pressure 144/87 H 141/78 H 141/78 H Blood Pressure Mean 106 99 99 Pulse Ox 98 100 100 Oxygen Delivery Method Room Air Room Air Room Air 11/26/23 03:00 11/26/23 04:00 11/26/23 05:50 Temperature 97.8 F 98.1 F Temperature Source Temporal Temporal Pulse Rate 125 H 127 H 110 H Respiratory Rate 18 21 H 16 Respiratory Effort Respiratory Pattern Blood Pressure 130/74 H 132/85 H 154/92 H Blood Pressure Mean 92 100 112 Pulse Ox 97 97 99 Oxygen Delivery Method Room Air Room Air Room Air Positive well nourished and well developed General Appearance ED: well developed; Negative for pallor HEENT Reports dry mucous membranes HEENT Narrative: There is mild erythema on the posterior pharynx without exudates trismus change in voice or difficulty with secretions No tongue or lip swelling noted Mucous membranes are dry and tacky Mouth ED: Yes dry mucous membranes Mouth: dry mucous membranes Eyes PERRL and EOMs intact bilaterally General Eye ED: Negative for scleral icterus Neck supple Neck Narrative: No nuchal rigidity or meningeal signs Chest Wall palpation of chest normal Resp normal respiratory effort and clear to auscultation bilaterally Cardio regular rhythm Rate: tachycardic and other Other Details: Tachycardic rate with regular rhythm Radial and carotid pulses are equal and symmetric GI non-distended GI Narrative: Abdomen is soft and nondistended with hyperactive bowel sounds. There is pain on palpation in the midline to suprapubic region that extends towards the left side of the abdomen. However no voluntary guarding or rigidity No pulsatile mass or fluid wave Auscultation: hyperactive bowel sounds Palpation: soft Extremity normal to inspection Extremity Narrative: No asymmetric edema no pitting edema negative Homans' sign bilaterally Neuro oriented x3, CN's II-XII intact bilaterally and no sensory deficits noted Sensorium / Orientation: alert Motor Exam: strength 5/5 throughout Psych mental status grossly normal Skin no rashes or lesions noted, no wounds and No skin turgor normal Skin Narrative: Skin turgor is increased General Skin Exam: Negative for jaundice or pallor MDM MDM MDM Narrative Medical decision making narrative: Patient presented to the ER tachycardic there was a stable vital. History and exam is concerning for DKA versus HHS versus colitis versus acute kidney injury. Based on her history of diabetes the most likely diagnosis is DKA and basic blood work with serum acetone and VBG were obtained. Patient's anion gap is elevated her serum bicarb is extremely low her pH is low at 7.17 consistent withacidosis and she has positive acetone consistent with DKA. Secondary to this she was started on IV fluids and an insulin drip. Medicine was also contacted for admission. Based on her elevated white count a CT scan of the abdomen and pelvis was also obtained based on her pain and symptoms of nausea/vomiting. It showed changes concerning for developing colitis or early appendicitis. The patient does not have pain in the right lower quadrant and therefore do not feelthat this correlates with early appendicitis. With the left side abdominal painthis could be early colitis and therefore antibiotics will be started. However at this time as she is in DKA and will require insulin drip and continuous monitoring she will be admitted to the ICU for further care History & Record Review Discussion w/independent historian: Patient Lab Data Attestation: I reviewed the patient's lab results. Labs: Laboratory Results - last 24 hr 11/25/23 11/25/23 11/26/23 23:02 23:42 00:54 WBC 24.5 H RBC 5.62 H Hgb 15.7 H Hct 48.7 H MCV 86.7 MCH 27.9 MCHC 32.2 RDW Std Deviation 41.1 RDW Coeff of Marilynn 13.1 Plt Count 444 MPV 9.4 Immature Gran % (Auto) 2.000 H Neut % (Auto) 91.9 H Lymph % (Auto) 3.4 L [place] % (Auto) 2.4 Eos % (Auto) 0.0 Baso % (Auto) 0.3 Absolute Neuts (auto) 22.5 H Absolute Lymphs (auto) 0.84 Nucleated RBC % 0 Differential Comment SCANNED Atypical Lymphocytes 1+ Sodium 137 Potassium 3.8 Chloride 103 Carbon Dioxide 7.0 L* Anion Gap 27 H BUN 20 H Creatinine 1.00 Estim Creat Clear Calc 72.78 Est GFR (MDRD) Af Amer 86 Est GFR (MDRD) Non-Af 71 BUN/Creatinine Ratio 20.0 Glucose 424 H Lactic Acid Cancelled Calcium 9.6 Magnesium 1.9 Total Bilirubin 0.70 Direct Bilirubin 0.17 AST 17 ALT 18 Alkaline Phosphatase 116 Total Protein 8.6 H Albumin 4.8 Globulin 3.8 Lipase 13 Urine Color Urine Clarity Urine pH Ur Specific [place] Urine Protein Urine Glucose (UA) Urine Ketones Urine Occult Blood Urine Nitrite Urine Bilirubin Urine Urobilinogen Ur Leukocyte Esterase Urine RBC Urine WBC Ur Squamous Epith Cells Urine Bacteria Urine Mucus Urine Test Acetone Level MODERATE H POC Glucose 486 H* 415 H 11/26/23 11/26/23 11/26/23 01:15 02:54 04:03 WBC RBC Hgb Hct MCV MCH MCHC RDW Std Deviation RDW Coeff of Mairlynn Plt Count MPV Immature Gran % (Auto) Neut % (Auto) Lymph % (Auto) [place] % (Auto) Eos % (Auto) Baso % (Auto) Absolute Neuts (auto) Absolute Lymphs (auto) Nucleated RBC % Differential Comment Atypical Lymphocytes Sodium Potassium Chloride Carbon Dioxide Anion Gap BUN Creatinine Estim Creat Clear Calc Est GFR (MDRD) Af Amer Est GFR (MDRD) Non-Af BUN/Creatinine Ratio Glucose Lactic Acid Calcium Magnesium Total Bilirubin Direct Bilirubin AST ALT Alkaline Phosphatase Total Protein Albumin Globulin Lipase Urine Color Yellow Urine Clarity Clear Urine pH 5.0 Ur Specific [place] 1.025 Urine Protein 100 H Urine Glucose (UA) 1000 H Urine Ketones 150 A* Urine Occult Blood 10 H Urine Nitrite Negative Urine Bilirubin Negative Urine Urobilinogen Normal Ur Leukocyte Esterase Negative Urine RBC 0 SEEN Urine WBC 0 SEEN Ur Squamous Epith Cells 0 SEEN Urine Bacteria 0 SEEN Urine Mucus 0 SEEN Urine Test Negative Acetone Level POC Glucose 299 H 275 H 11/26/23 11/26/23 05:26 06:22 WBC RBC Hgb Hct MCV MCH MCHC RDW Std Deviation RDW Coeff of Marilynn Plt Count MPV Immature Gran % (Auto) Neut % (Auto) Lymph % (Auto) [place] % (Auto) Eos % (Auto) Baso % (Auto) Absolute Neuts (auto) Absolute Lymphs (auto) Nucleated RBC % Differential Comment Atypical Lymphocytes Sodium Potassium Chloride Carbon Dioxide Anion Gap BUN Creatinine Estim Creat Clear Calc Est GFR (MDRD) Af Amer Est GFR (MDRD) Non-Af BUN/Creatinine Ratio Glucose Lactic Acid Calcium Magnesium Total Bilirubin Direct Bilirubin AST ALT Alkaline Phosphatase Total Protein Albumin Globulin Lipase Urine Color Urine Clarity Urine pH Ur Specific [place] Urine Protein Urine Glucose (UA) Urine Ketones Urine Occult Blood Urine Nitrite Urine Bilirubin Urine Urobilinogen Ur Leukocyte Esterase Urine RBC Urine WBC Ur Squamous Epith Cells Urine Bacteria Urine Mucus Urine Test Acetone Level POC Glucose 197 H 200 H ABG Data ABG results: ABG 11/26/23 01:01 Specimen Type LUIS Sample Site Not entered VBG pH 7.17 L* VBG pO2 102 H VBG HCO3 7 L VBG Total CO2 8 L VBG O2 Sat (Calc) 96 H VBG Base Excess -22 L POC Mix VBG pCO2 Pt Tmp 19.1 L O2 Delivery Device Room Air Crit Call To/Read Back Yes Blood Gas Notified Whom Dr. Mina Blood Gas Notified Time 01:02:40 Radiography Diagnostic Testing: Clinical Impression(s) from Imaging Studies Abdomen/Pelvis CT 11/26/23 02:43 IMPRESSION: 1. Collapsed and questionably mildly thick-walled appearance of most of the colon. Correlate with any leukocytosis or diarrhea. Possible early or mild colitis. 2. Borderline gasless appendix, measurements of 5 mm to 7 mm. No surrounding inflammation to confirm acute appendicitis. Cannot exclude very early appendicitis. 3. No free fluid. 4. Small retroperitoneal and mesenteric lymph nodes, stable. Electronically Signed: Anna Enriquez MD at 4:17 EDT , Management Discussion w/another healthcare provider: Hospitalist Critical Care Time Critical Care Time: Yes Critical care time (excluding procedures): Discussing w/Patient &/or Family/CareGiver, Discussing w/Consultants and - (Critical care time of 33 minutes) Discharge Plan Dx/Rx/DC Orders Clinical Impression: DKA (diabetic ketoacidosis), Acute colitis, Insulin dependent type 1 diabetes mellitus, Nausea & vomiting Disposition Disposition: Acute Care Hospital [facility] What to do if you have Problems For any increased pain, shortness of breath, bleeding, nausea or vomiting, chestpain, or any unexpected problems, contact your Primary Care Provider. Call [facility] ([phone]) or report to the closest Emergency Room. Call 911 if necessary. 11/26/23 0653 <Electronically signed by Sunil Mina DO> Cosigner Signature (if applicable): CC: Mninie Hodge ~ Signed [facility] Work Phone: [phone] 138-561905-08-2024 History and physical note Author Jackeline Aguilar [facility] November 26, 2023 5:42am Note Date/Time November 26, 2023 1:26am [facility] Medical Records Department [address] [place] [address] H&P Exam - Hospitalist 11/26/23 0125 MR#: [id number] Acct: [id number] Name: KALIE DESIR Rep #:[id number] : 2000 23 From: Jackeline Clark DO PCP: Minnie Hodge Status:REG E R Location: ED HPI - General General Date of Service: 11/26/23 Chief Complaint: Hyperglycemia with Nausea and Vomiting. HPI Yanick DESIR, is a 23 F with a past medical history of being overweight; with BMI of 29.3 this admission, history of asthma, history of hepatitis A, history of medical noncompliance, depression with anxiety, history of cannabis abuse, history of DKA and DM-1 (since age 8); uncontrolled with hyperglycemia in spiteof insulin pump in place who presents to [facility] ER complaining of hyperglycemia. Ms. Gonzalez reports her symptoms began approximately 1 to 2 hours prior to arrival with patient drinking a soda becauseher sugar was low. She further explained that she was at work when her insulin pump was apparently empty and needed to be refilled and then when she got home it was late and she fell asleep without replacing it and then woke up with intractable nausea and vomiting in spite of multiple boluses of insulin. She also states she recently inadvertently cut her lip ring and yanked the stud into her lip tissue and this also caused her to come to the hospital last week for further evaluation and treatment with patient now having finished her courseof prophylactic oral Augmentin. In the ER she was noted to have hyperglycemia of 424 mg/dL present on admission complicated by DKA with VBG showing pH of 7.17/pCO2 8/pO2 102/HCO3 7 @96% on RA with additional laboratory evidence of moderate serum acetone and leukocytosis of 24.5 present on admission; with CT scan of the abdomen pelvis this admission revealing evidence of colitis and possible early acute appendicitis and she was them admitted to the ICU for ongoing care for status expected to be greater than 2 midnights. [facility] Medical History Anxiety and depression Asthma Cannabis hyperemesis syndrome concurrent with and due to cannabis abuse Diabetes type 1, controlled Diabetic ketoacidosis DKA, type 1 History of marijuana use Hypokalemia Hypophosphatemia Implanon in place Insulin pump titration Presence of insulin pump Tachycardia Home Medications albuterol sulfate 90 mcg/actuation aerosol inhaler (Ventolin HFA) 2 puff inhalation Q4H PRN SHORTNES OF BREATH/WHEEZING 08/25/18 [History Last Taken 03/02/23] Ketone Urine Test (acetone (urine) test) #50 ea 11/05/21 [Rx Last Taken Unknown] fluticasone propionate 50 mcg/actuation nasal spray,suspension 2 spray intranasal DAILY NASAL CONGESTION 11/21/22 [History Last Taken 02/12/23] pen needle, diabetic 32 gauge x 5/32 (BD Ultra-Fine Opal Pen Needle) #120 ea 11/23/22 [Rx Last Taken Unknown] hydroxyzine pamoate 25 mg capsule (Vistaril) 25 mg PO QHS ITCHING #30 caps 01/13/23 [Rx Last Taken 02/12/23] insulin pump cartridge,automated dose,BT with controller subcutaneous (Omnipod 5G6 Intro Kit (Gen 5) subcutaneous cartridge with controller) #1 ea 08/15/23 [Rx Last Taken Unknown] blood-glucose sensor (Dexcom G6 Sensor device) #9 ea 11/10/23 [Rx Last Taken Unknown] blood-glucose transmitter (Dexcom G6 Transmitter device) #1 ea 11/10/23 [Rx Last Taken Unknown] insulin aspart U-100 100 unit/mL subcutaneous solution 100 unit subcut ONCE #90 mL 11/10/23 [Rx Last Taken Unknown] insulin pump cart,automated,BT (Omnipod 5 G6 Pods (Gen 5) subcutaneous cartridge) #45 ea 11/10/23 [Rx Last Taken Unknown] amoxicillin 875 mg-potassium clavulanate 125 mg tablet 1 tab PO BID 7 days #14 tabs 11/11/23 [Rx Last Taken Unknown] oxycodone-acetaminophen 5 mg-325 mg tablet (Percocet) 1 tab PO Q6H PRN pain 3 days #12 tabs 11/11/23 [Rx Last Taken Unknown] Allergy/AdvReac Type Severity Reaction Status Date / Time bee venom protein (honey bee) Allergy Severe Anaphylaxis Verified 11/25/23 23:00 [bee stings] Penicillins Allergy Unknown Verified 11/25/23 23:00 Sulfa (Sulfonamide Allergy Unknown Verified 11/25/23 23:00 Antibiotics) prednisone AdvReac Vomiting Verified 11/25/23 23:00 Family History Grandmother Diabetes Sister Asthma Brother Asthma Mother Heart disease Surgical History History of placement of ear tubes Social History household members: family Smoking Status: Never smoker second hand exposure: No alcohol intake: never substance use type: other details: Cannabis, last use ~ 1 month prior, ingested. ROS ROS Narrative Review of systems: General: Patient denies fevers or chills. HENT: Denies headache, denies stuffy nose, denies sore throat EYES: Denies changes in vision or discharge from eyes. Resp: Denies cough, denies shortness of breath Cardiac: Denies chest pain, palpitations or heart racing. GI: Patient admits to nausea and bilious emesis with intermittent generalized abdominal pain as per HPI. : Patient admits to increased urination but denies dysuria or hematuria. Extremity: Denies swelling Musculoskeletal: Feels somewhat generally weak and unwell but denies arthralgiasor myalgias. Neuro: Patient denies headache, paresthesias or focal neurologic weakness. Heme: Denies any bleeding or bruising Skin: Denies rashes Psychiatric: No complaints voiced related to uncontrolled depression or anxiety. Endocrine: No polyuria, polydipsia or polyphagia. The rest of the 14 point ROS was negative except for positives in HPI. Vital Signs Vital Signs Vital Signs: 11/25/23 22:58 11/25/23 23:38 11/26/23 00:00 Temperature 97.6 F L 98.7 F Temperature Source Temporal Oral Pulse Rate 128 H 116 H Respiratory Rate 16 18 Respiratory Effort Normal Respiratory Pattern Normal Blood Pressure 128/83 H 158/83 H Blood Pressure Mean 98 108 Pulse Ox 100 99 Oxygen Delivery Method Room Air Room Air 11/26/23 01:00 Temperature 98.9 F Temperature Source Oral Pulse Rate 115 H Respiratory Rate 19 H Respiratory Effort Respiratory Pattern Blood Pressure 144/87 H Blood Pressure Mean 106 Pulse Ox 98 Oxygen Delivery Method Room Air Weight Weight: 145 lb Body Mass Index (BMI) 29.2 Physical Exam Const alert, oriented x3, no apparent distress and average body habitus General Appearance: cooperative HEENT normocephalic, head/scalp atraumatic and hearing grossly normal bilaterally HEENT Narrative: Mucous membranes dry. Eyes PERRL and EOMs intact bilaterally Neck no lymphadenopathy and supple Resp normal respiratory effort, no retractions, no use of accessory muscles and clearto auscultation bilaterally Cardio regular rate and regular rhythm GI normal to inspection, nondistended, normoactive bowel sounds, soft to palpation,non-tender and non-distended Extremity normal to inspection, full ROM and no clubbing, cyanosis or edema Skin Skin Narrative: Patient has no evidence of abscess, jaundice or rash. Neuro oriented x3, CN's II-XII intact bilaterally, moves all extremities and no focal motor deficits Sensorium / Orientation: awake, alert, oriented to person, oriented to place andoriented to time Speech: speech normal Motor Exam: strength 5/5 throughout Psych affect normal Results Medical Records Data Attestation: I reviewed the patient's medical records Lab / Micro Data Attestation: I reviewed the patient's lab results. 11/26/23 00:54 11/26/23 00:54 Labs: Laboratory Results - last 24 hr 11/25/23 23:02: POC Glucose 486 H* 11/25/23 23:42: POC Glucose 415 H 11/26/23 00:54: WBC 24.5 H, RBC 5.62 H, Hgb 15.7 H, Hct 48.7 H, MCV 86.7, MCH 27.9, MCHC 32.2, RDW Std Deviation 41.1, RDW Coeff of Marilynn 13.1, Plt Count 444, MPV 9.4, Immature Gran % (Auto) 2.000 H, Neut % (Auto) 91.9 H, Lymph % (Auto) 3.4 L, [place] % (Auto) 2.4, Eos % (Auto) 0.0, Baso % (Auto) 0.3, Absolute Neuts (auto) 22.5 H, Absolute Lymphs (auto) 0.84, Nucleated RBC % 0, Acetone Level MODERATE H ABG Data ABG results: ABG 11/26/23 01:01 Specimen Type LUIS Sample Site Not entered VBG pH 7.17 L* VBG pO2 102 H VBG HCO3 7 L VBG Total CO2 8 L VBG O2 Sat (Calc) 96 H VBG Base Excess -22 L POC Mix VBG pCO2 Pt Tmp 19.1 L O2 Delivery Device Room Air Crit Call To/Read Back Yes Blood Gas Notified Whom Dr. Mina Blood Gas Notified Time 01:02:[address] [facility] Imaging Services [address] [place] [address] Abdomen/Pelvis without Cont MR#: [id number] Acct: [id number] Name: KALIE DESIR Rep #: [id number] : 2000 F 23 From: Anna Enriquez MD PCP: Minnie Hodge Status: REG ER Study: Abdomen/Pelvis without Cont Date of Exam: 11/26/23 Exam# [id number] Ordering Dr: Sunil Mina DO EXAM: CT ABDOMEN AND PELVIS WITHOUT INTRAVENOUS CONTRAST CLINICAL INDICATION: abd pain TECHNIQUE: Helically acquired images were obtained of the abdomen and pelvis without intravenous contrast. This CT exam was performed using one or more of the following dose reduction techniques: automated exposure control, adjustment of the mA and/or kV according to patient size, and/or use of iterative reconstruction technique. RADIATION DOSE: CTDIvol = 6.66 mGy, DLP = 329.29 mGy-cm COMPARISON: March 02, 2023, mentioned findings suspicious for esophagitis. FINDINGS: LOWER THORAX: Unremarkable. Lung bases are clear. No cardiomegaly. No significant pericardial effusion. ABDOMEN: LIVER: Unremarkable. Homogeneous. GALLBLADDER AND BILE DUCTS: Unremarkable. No calcified gallstones. No gallbladder distention or wall edema. No intra- or extrahepatic biliary ductal dilation. PANCREAS: Unremarkable. No focal cystic mass. SPLEEN: Unremarkable. Normal size without focal cystic or solid mass. ADRENALS: Unremarkable. No nodules. KIDNEYS AND URETERS: Unremarkable. Normal renal size and position. No hydronephrosis. STOMACH AND BOWEL: Mild fluid and gas in the stomach. Most of the small bowel loops are collapsed. Collapsed and mildly thick-walled appearance most of the colon, with mild stool in the rectum. Suspicion of early or mild colitis in the appropriate clinical setting. No stomach or bowel distention. PELVIS: APPENDIX: Tortuous appendix, best seen on coronal images 43 through 39, tip not well seen medial to the right iliac vessels. Proximal appendix measures 6.5 mm on coronal image #43. Mid appendix is gasless and measures 7 mm on coronal image #40 without surrounding inflammation. Mid appendix measures 5 mm on axial image #116. The cecum was previously low lying the appendix was gasless and roughly 5 mm on prior exam. BLADDER: Moderately distended and thin walled appearance of the urinary bladder. REPRODUCTIVE: Unremarkable as visualized. No mass. ABDOMEN and PELVIS: INTRAPERITONEAL SPACE: Unremarkable. No ascites or other fluid collection. No free air. BONES/JOINTS: Unremarkable. No suspicious lytic or blastic abnormality. SOFT TISSUES: Unremarkable. No discrete abdominal or pelvic wall hernia. VASCULATURE: Unremarkable. Abdominal aorta is non-dilated. LYMPH NODES: Mild mesenteric adenopathy and multiple mildly prominent retroperitoneal lymph nodes appear similar to prior exam. CT/Abdomen/Pelvis without Cont IMPRESSION: 1. Collapsed and questionably mildly thick-walled appearance of most of the colon. Correlate with any leukocytosis or diarrhea. Possible early or mild colitis. 2. Borderline gasless appendix, measurements of 5 mm to 7 mm. No surrounding inflammation to confirm acute appendicitis. Cannot exclude very early appendicitis. 3. No free fluid. 4. Small retroperitoneal and mesenteric lymph nodes, stable. Electronically Signed: Anna Enriquez MD at 4:17 EDT Reading Location ID and State: [facility] / [place] Tel , Service support , CC: Minnie Hodge; Sunil Mina DO ~ Timekeeper: Signed Assessment & Plan Assessment/Plan (1) DKA (diabetic ketoacidosis): QUALIFIERS: Diabetes mellitus complication detail: without coma Diabetes mellitus type: type 1 Qualified Code(s): E10.10 - Type 1 diabetes mellitus with ketoacidosis without coma (2) Type 1 diabetes mellitus with hyperglycemia: (3) Non-compliance: (4) Acute colitis: (5) Appendicitis: QUALIFIERS: Appendicitis type: unspecified Qualified Code(s): K37- Unspecified appendicitis PLAN: Plan 1. DKA; evidenced by hyperglycemia of 424 mg/dL with pH of 7.17 and moderate serum acetone present on admission - Admit to ICU for treatment under DKA protocol. Continue IV insulin drip and change IV fluid to D5 half-normal salinewith 20 meq of potassium chloride when sugar is below 250 mg/dL. Give Zofran IVas needed nausea and vomiting. We will consult clinical dietitian to see patient on rounds in the a.m. for further teaching to help prevent serial readmission with help appreciated in advance. 2. DM-1; uncontrolled with hyperglycemia with reported insulin pump malfunctionin the setting of known previous medical noncompliance and previous bouts of DKAcomplicating #1 - Hold insulin pump while patient is on IV insulin drip. Patient would likely benefit from further teaching about how to use her pump to prevent serial readmission. 3. CT evidence of colitis with possible early appendicitis with leukocytosis 24.5 present on admission compounding #1 & #2 - Start empiric IV Levaquin and IVFlagyl given patient's documented PCN allergy and check stool studies. Finally,we will consult general surgery to see this patient on-rounds in the AM for further recommendations with help appreciated in advance. 4. Overweight; with BMI of 29.3 this admission - Weight loss will be recommended. 5. History of asthma - Stable with no evidence of acute flare. Continue prn nebulizers. 6. History of hepatitis A - Noted. 7. Depression with anxiety - Continue home regimen plus give prn Vistaril for breakthrough symptoms. 8. History of cannabis abuse - Cannabis cessation will be strongly encouraged. 9. DVT prophylaxis - Lovenox 40 mg sq daily. Total time: Approximately 75 minutes. Charges/Coding Visit Charges Inpatient E&M: 47499 Init Hosp L3 11/26/23 0542 <Electronically signed by Jackeline Rowe DO> Cosigner Signature (if applicable): CC: Minnie Hodge; Dr. Jackeline Rowe DO~ Signed [facility] Work Phone: 1(129) 780-816205-08-2024 History and physical note Author Jackeline Aguilar [facility] November 26, 2023 5:42am Note Date/Time November 26, 2023 1:26am [facility] Medical Records Department [address] [place] [id number] H&P Exam - Hospitalist 11/26/23 0125 MR#: [id number] Acct: [id number] Name: KALIE DESIR Rep #:[id number] : 2000 23 From: Jackeline Clark DO PCP: Minnie Hodge Status:REG E R Location: ED HPI - General General Date of Service: 11/26/23 Chief Complaint: Hyperglycemia with Nausea and Vomiting. HPI Narrative KALIE DESIR, is a 23 F with a past medical history of being overweight; with BMI of 29.3 this admission, history of asthma, history of hepatitis A, history of medical noncompliance, depression with anxiety, history of cannabis abuse, history of DKA and DM-1 (since age 8); uncontrolled with hyperglycemia in spiteof insulin pump in place who presents to [facility] ER complaining of hyperglycemia. Ms. Gonzalez reports her symptoms began approximately 1 to 2 hours prior to arrival with patient drinking a soda becauseher sugar was low. She further explained that she was at work when her insulin pump was apparently empty and needed to be refilled and then when she got home it was late and she fell asleep without replacing it and then woke up with intractable nausea and vomiting in spite of multiple boluses of insulin. She also states she recently inadvertently cut her lip ring and yanked the stud into her lip tissue and this also caused her to come to the hospital last week for further evaluation and treatment with patient now having finished her courseof prophylactic oral Augmentin. In the ER she was noted to have hyperglycemia of 424 mg/dL present on admission complicated by DKA with VBG showing pH of 7.17/pCO2 8/pO2 102/HCO3 7 @96% on RA with additional laboratory evidence of moderate serum acetone and leukocytosis of 24.5 present on admission; with CT scan of the abdomen pelvis this admission revealing evidence of colitis and possible early acute appendicitis and she was them admitted to the ICU for ongoing care for status expected to be greater than 2 midnights. [facility] Medical History Anxiety and depression Asthma Cannabis hyperemesis syndrome concurrent with and due to cannabis abuse Diabetes type 1, controlled Diabetic ketoacidosis DKA, type 1 History of marijuana use Hypokalemia Hypophosphatemia Implanon in place Insulin pump titration Presence of insulin pump Tachycardia Home Medications albuterol sulfate 90 mcg/actuation aerosol inhaler (Ventolin HFA) 2 puff inhalation Q4H PRN SHORTNES OF BREATH/WHEEZING 08/25/18 [History Last Taken 03/02/23] Ketone Urine Test (acetone (urine) test) #50 ea 11/05/21 [Rx Last Taken Unknown] fluticasone propionate 50 mcg/actuation nasal spray,suspension 2 spray intranasal DAILY NASAL CONGESTION 11/21/22 [History Last Taken 02/12/23] pen needle, diabetic 32 gauge x 5/32 (BD Ultra-Fine Opal Pen Needle) #120 ea 11/23/22 [Rx Last Taken Unknown] hydroxyzine pamoate 25 mg capsule (Vistaril) 25 mg PO QHS ITCHING #30 caps 01/13/23 [Rx Last Taken 02/12/23] insulin pump cartridge,automated dose,BT with controller subcutaneous (Omnipod 5G6 Intro Kit (Gen 5) subcutaneous cartridge with controller) #1 ea 08/15/23 [Rx Last Taken Unknown] blood-glucose sensor (Dexcom G6 Sensor device) #9 ea 11/10/23 [Rx Last Taken Unknown] blood-glucose transmitter (Dexcom G6 Transmitter device) #1 ea 11/10/23 [Rx Last Taken Unknown] insulin aspart U-100 100 unit/mL subcutaneous solution 100 unit subcut ONCE #90 mL 11/10/23 [Rx Last Taken Unknown] insulin pump cart,automated,BT (Omnipod 5 G6 Pods (Gen 5) subcutaneous cartridge) #45 ea 11/10/23 [Rx Last Taken Unknown] amoxicillin 875 mg-potassium clavulanate 125 mg tablet 1 tab PO BID 7 days #14 tabs 11/11/23 [Rx Last Taken Unknown] oxycodone-acetaminophen 5 mg-325 mg tablet (Percocet) 1 tab PO Q6H PRN pain 3 days #12 tabs 11/11/23 [Rx Last Taken Unknown] Allergy/AdvReac Type Severity Reaction Status Date / Time bee venom protein (honey bee) Allergy Severe Anaphylaxis Verified 11/25/23 23:00 [bee stings] Penicillins Allergy Unknown Verified 11/25/23 23:00 Sulfa (Sulfonamide Allergy Unknown Verified 11/25/23 23:00 Antibiotics) prednisone AdvReac Vomiting Verified 11/25/23 23:00 Family History Grandmother Diabetes Sister Asthma Brother Asthma Mother Heart disease Surgical History History of placement of ear tubes Social History household members: family Smoking Status: Never smoker second hand exposure: No alcohol intake: never substance use type: other details: Cannabis, last use ~ 1 month prior, ingested. ROS ROS Narrative Review of systems: General: Patient denies fevers or chills. HENT: Denies headache, denies stuffy nose, denies sore throat EYES: Denies changes in vision or discharge from eyes. Resp: Denies cough, denies shortness of breath Cardiac: Denies chest pain, palpitations or heart racing. GI: Patient admits to nausea and bilious emesis with intermittent generalized abdominal pain as per HPI. : Patient admits to increased urination but denies dysuria or hematuria. Extremity: Denies swelling Musculoskeletal: Feels somewhat generally weak and unwell but denies arthralgiasor myalgias. Neuro: Patient denies headache, paresthesias or focal neurologic weakness. Heme: Denies any bleeding or bruising Skin: Denies rashes Psychiatric: No complaints voiced related to uncontrolled depression or anxiety. Endocrine: No polyuria, polydipsia or polyphagia. The rest of the 14 point ROS was negative except for positives in HPI. Vital Signs Vital Signs Vital Signs: 11/25/23 22:58 11/25/23 23:38 11/26/23 00:00 Temperature 97.6 F L 98.7 F Temperature Source Temporal Oral Pulse Rate 128 H 116 H Respiratory Rate 16 18 Respiratory Effort Normal Respiratory Pattern Normal Blood Pressure 128/83 H 158/83 H Blood Pressure Mean 98 108 Pulse Ox 100 99 Oxygen Delivery Method Room Air Room Air 11/26/23 01:00 Temperature 98.9 F Temperature Source Oral Pulse Rate 115 H Respiratory Rate 19 H Respiratory Effort Respiratory Pattern Blood Pressure 144/87 H Blood Pressure Mean 106 Pulse Ox 98 Oxygen Delivery Method Room Air Weight Weight: 145 lb Body Mass Index (BMI) 29.2 Physical Exam Const alert, oriented x3, no apparent distress and average body habitus General Appearance: cooperative HEENT normocephalic, head/scalp atraumatic and hearing grossly normal bilaterally HEENT Narrative: Mucous membranes dry. Eyes PERRL and EOMs intact bilaterally Neck no lymphadenopathy and supple Resp normal respiratory effort, no retractions, no use of accessory muscles and clearto auscultation bilaterally Cardio regular rate and regular rhythm GI normal to inspection, nondistended, normoactive bowel sounds, soft to palpation,non-tender and non-distended Extremity normal to inspection, full ROM and no clubbing, cyanosis or edema Skin Skin Narrative: Patient has no evidence of abscess, jaundice or rash. Neuro oriented x3, CN's II-XII intact bilaterally, moves all extremities and no focal motor deficits Sensorium / Orientation: awake, alert, oriented to person, oriented to place andoriented to time Speech: speech normal Motor Exam: strength 5/5 throughout Psych affect normal Results Medical Records Data Attestation: I reviewed the patient's medical records Lab / Micro Data Attestation: I reviewed the patient's lab results. 11/26/23 00:54 11/26/23 00:54 Labs: Laboratory Results - last 24 hr 11/25/23 23:02: POC Glucose 486 H* 11/25/23 23:42: POC Glucose 415 H 11/26/23 00:54: WBC 24.5 H, RBC 5.62 H, Hgb 15.7 H, Hct 48.7 H, MCV 86.7, MCH 27.9, MCHC 32.2, RDW Std Deviation 41.1, RDW Coeff of Marilynn 13.1, Plt Count 444, MPV 9.4, Immature Gran % (Auto) 2.000 H, Neut % (Auto) 91.9 H, Lymph % (Auto) 3.4 L, [place] % (Auto) 2.4, Eos % (Auto) 0.0, Baso % (Auto) 0.3, Absolute Neuts (auto) 22.5 H, Absolute Lymphs (auto) 0.84, Nucleated RBC % 0, Acetone Level MODERATE H ABG Data ABG results: ABG 11/26/23 01:01 Specimen Type LUIS Sample Site Not entered VBG pH 7.17 L* VBG pO2 102 H VBG HCO3 7 L VBG Total CO2 8 L VBG O2 Sat (Calc) 96 H VBG Base Excess -22 L POC Mix VBG pCO2 Pt Tmp 19.1 L O2 Delivery Device Room Air Crit Call To/Read Back Yes Blood Gas Notified Whom Dr. Mina Blood Gas Notified Time 01:02:[address] [facility] Imaging Services [address] [place] [address] Abdomen/Pelvis without Cont MR#: [id number] Acct: [id number] Name: THANGKALIENEDA OREILLY Rep #: [id number] : 2000 F 23 From: Anna Enriquez MD PCP: Minnie Hodge Status: REG ER Study: Abdomen/Pelvis without Cont Date of Exam: 11/26/23 Exam# [id number] Ordering Dr: Sunil Mina DO EXAM: CT ABDOMEN AND PELVIS WITHOUT INTRAVENOUS CONTRAST CLINICAL INDICATION: abd pain TECHNIQUE: Helically acquired images were obtained of the abdomen and pelvis without intravenous contrast. This CT exam was performed using one or more of the following dose reduction techniques: automated exposure control, adjustment of the mA and/or kV according to patient size, and/or use of iterative reconstruction technique. RADIATION DOSE: CTDIvol = 6.66 mGy, DLP = 329.29 mGy-cm COMPARISON: March 02, 2023, mentioned findings suspicious for esophagitis. FINDINGS: LOWER THORAX: Unremarkable. Lung bases are clear. No cardiomegaly. No significant pericardial effusion. ABDOMEN: LIVER: Unremarkable. Homogeneous. GALLBLADDER AND BILE DUCTS: Unremarkable. No calcified gallstones. No gallbladder distention or wall edema. No intra- or extrahepatic biliary ductal dilation. PANCREAS: Unremarkable. No focal cystic mass. SPLEEN: Unremarkable. Normal size without focal cystic or solid mass. ADRENALS: Unremarkable. No nodules. KIDNEYS AND URETERS: Unremarkable. Normal renal size and position. No hydronephrosis. STOMACH AND BOWEL: Mild fluid and gas in the stomach. Most of the small bowel loops are collapsed. Collapsed and mildly thick-walled appearance most of the colon, with mild stool in the rectum. Suspicion of early or mild colitis in the appropriate clinical setting. No stomach or bowel distention. PELVIS: APPENDIX: Tortuous appendix, best seen on coronal images 43 through 39, tip not well seen medial to the right iliac vessels. Proximal appendix measures 6.5 mm on coronal image #43. Mid appendix is gasless and measures 7 mm on coronal image #40 without surrounding inflammation. Mid appendix measures 5 mm on axial image #116. The cecum was previously low lying the appendix was gasless and roughly 5 mm on prior exam. BLADDER: Moderately distended and thin walled appearance of the urinary bladder. REPRODUCTIVE: Unremarkable as visualized. No mass. ABDOMEN and PELVIS: INTRAPERITONEAL SPACE: Unremarkable. No ascites or other fluid collection. No free air. BONES/JOINTS: Unremarkable. No suspicious lytic or blastic abnormality. SOFT TISSUES: Unremarkable. No discrete abdominal or pelvic wall hernia. VASCULATURE: Unremarkable. Abdominal aorta is non-dilated. LYMPH NODES: Mild mesenteric adenopathy and multiple mildly prominent retroperitoneal lymph nodes appear similar to prior exam. CT/Abdomen/Pelvis without Cont IMPRESSION: 1. Collapsed and questionably mildly thick-walled appearance of most of the colon. Correlate with any leukocytosis or diarrhea. Possible early or mild colitis. 2. Borderline gasless appendix, measurements of 5 mm to 7 mm. No surrounding inflammation to confirm acute appendicitis. Cannot exclude very early appendicitis. 3. No free fluid. 4. Small retroperitoneal and mesenteric lymph nodes, stable. Electronically Signed: Anna Enriquez MD at 4:17 EDT , CC: Minnie Hodge; Sunil Mina DO ~ Timekeeper: Signed Assessment & Plan Assessment/Plan (1) DKA (diabetic ketoacidosis): QUALIFIERS: Diabetes mellitus complication detail: without coma Diabetes mellitus type: type 1 Qualified Code(s): E10.10 - Type 1 diabetes mellitus with ketoacidosis without coma (2) Type 1 diabetes mellitus with hyperglycemia: (3) Non-compliance: (4) Acute colitis: (5) Appendicitis: QUALIFIERS: Appendicitis type: unspecified Qualified Code(s): K37- Unspecified appendicitis PLAN: Plan 1. DKA; evidenced by hyperglycemia of 424 mg/dL with pH of 7.17 and moderate serum acetone present on admission - Admit to ICU for treatment under DKA protocol. Continue IV insulin drip and change IV fluid to D5 half-normal salinewith 20 meq of potassium chloride when sugar is below 250 mg/dL. Give Zofran IVas needed nausea and vomiting. We will consult clinical dietitian to see patient on rounds in the a.m. for further teaching to help prevent serial readmission with help appreciated in advance. 2. DM-1; uncontrolled with hyperglycemia with reported insulin pump malfunctionin the setting of known previous medical noncompliance and previous bouts of DKAcomplicating #1 - Hold insulin pump while patient is on IV insulin drip. Patient would likely benefit from further teaching about how to use her pump to prevent serial readmission. 3. CT evidence of colitis with possible early appendicitis with leukocytosis 24.5 present on admission compounding #1 & #2 - Start empiric IV Levaquin and IVFlagyl given patient's documented PCN allergy and check stool studies. Finally,we will consult general surgery to see this patient on-rounds in the AM for further recommendations with help appreciated in advance. 4. Overweight; with BMI of 29.3 this admission - Weight loss will be recommended. 5. History of asthma - Stable with no evidence of acute flare. Continue prn nebulizers. 6. History of hepatitis A - Noted. 7. Depression with anxiety - Continue home regimen plus give prn Vistaril for breakthrough symptoms. 8. History of cannabis abuse - Cannabis cessation will be strongly encouraged. 9. DVT prophylaxis - Lovenox 40 mg sq daily. Total time: Approximately 75 minutes. Charges/Coding Visit Charges Inpatient E&M: 60570 Init Hosp L3 11/26/23 0542 <Electronically signed by Jackeline Rowe DO> Cosigner Signature (if applicable): CC: Minnie Hdoge; Dr. Jackeline Rowe DO~ Signed [facility] Work Phone: [phone]) 415-401305-08-2024 Discharge summary Author Sunil Mina [facility] November 26, 2023 6:53am Note Date/Time November 26, 2023 1:52am [facility] Medical Records Department [address] [place] [address] Emergency Department Summary 11/26/23 MR#: [id number] Acct: [id number] Name: KALIE DESIR Rep #:[id number] : 2000 23 From: Sunil Mina DO PCP: Minnie Hodge Status:REG E R Location: ED HPI History of Present Illness Chief Complaint: Hyperglycemia Informant: patient Narrative Narrative: Patient is a 23-year-old female with history of type 1 diabetes. She states that her insulin pump stopped working yesterday and after returning from work she was tired and went to bed and spent approximately 6 hours without the pump on. She states when she awoke she had generalized abdominal discomfort with bouts of nausea and vomiting. She states she checked her sugar and it was elevated and so she gave herself insulin. She states she has been trying to control her symptoms throughout the day but has not had any improvement and withconcern she is developing DKA she comes into the hospital for evaluation [facility] Medical History Anxiety and depression Asthma Cannabis hyperemesis syndrome concurrent with and due to cannabis abuse Diabetes type 1, controlled Diabetic ketoacidosis DKA, type 1 History of marijuana use Hypokalemia Hypophosphatemia Implanon in place Insulin pump titration Presence of insulin pump Tachycardia Home Medications albuterol sulfate 90 mcg/actuation aerosol inhaler (Ventolin HFA) 2 puff inhalation Q4H PRN SHORTNES OF BREATH/WHEEZING 08/25/18 [History Last Taken 03/02/23] Ketone Urine Test (acetone (urine) test) #50 ea 11/05/21 [Rx Last Taken Unknown] fluticasone propionate 50 mcg/actuation nasal spray,suspension 2 spray intranasal DAILY NASAL CONGESTION 11/21/22 [History Last Taken 02/12/23] pen needle, diabetic 32 gauge x 5/32 (BD Ultra-Fine Opal Pen Needle) #120 ea 11/23/22 [Rx Last Taken Unknown] hydroxyzine pamoate 25 mg capsule (Vistaril) 25 mg PO QHS ITCHING #30 caps 01/13/23 [Rx Last Taken 02/12/23] insulin pump cartridge,automated dose,BT with controller subcutaneous (Omnipod 5G6 Intro Kit (Gen 5) subcutaneous cartridge with controller) #1 ea 08/15/23 [Rx Last Taken Unknown] blood-glucose sensor (Dexcom G6 Sensor device) #9 ea 11/10/23 [Rx Last Taken Unknown] blood-glucose transmitter (Dexcom G6 Transmitter device) #1 ea 11/10/23 [Rx Last Taken Unknown] insulin aspart U-100 100 unit/mL subcutaneous solution 100 unit subcut ONCE #90 mL 11/10/23 [Rx Last Taken Unknown] insulin pump cart,automated,BT (Omnipod 5 G6 Pods (Gen 5) subcutaneous cartridge) #45 ea 11/10/23 [Rx Last Taken Unknown] amoxicillin 875 mg-potassium clavulanate 125 mg tablet 1 tab PO BID 7 days #14 tabs 11/11/23 [Rx Last Taken Unknown] oxycodone-acetaminophen 5 mg-325 mg tablet (Percocet) 1 tab PO Q6H PRN pain 3 days #12 tabs 11/11/23 [Rx Last Taken Unknown] Allergy/AdvReac Type Severity Reaction Status Date / Time bee venom protein (honey bee) Allergy Severe Anaphylaxis Verified 11/25/23 23:00 [bee stings] Penicillins Allergy Unknown Verified 11/25/23 23:00 Sulfa (Sulfonamide Allergy Unknown Verified 11/25/23 23:00 Antibiotics) prednisone AdvReac Vomiting Verified 11/25/23 23:00 Family History Grandmother Diabetes Sister Asthma Brother Asthma Mother Heart disease Surgical History History of placement of ear tubes Social History household members: family Smoking Status: Never smoker second hand exposure: No alcohol intake: never substance use type: other details: Cannabis, last use ~ 1 month prior, ingested. ROS ROS ED Constitutional Constitutional ED: Denies chills or fever(s) Eyes Eyes: Denies change in vision ENT ENT ED: Reports sore throat Cardiovascular Cardiovascular: Denies chest pain Respiratory/Chest Respiratory/Chest: Denies cough or dyspnea Gastrointestinal Gastrointestinal: Reports abdominal pain, nausea and vomiting; Denies diarrhea Genitourinary Genitourinary ED: Denies dysuria Musculoskeletal Musculoskeletal: Reports myalgias Integumentary Denies rash Neurologic Neurologic: Denies headache(s) Hematologic/Lymphatic Hematologic/Lymphatic: Denies easy bleeding or easy bruising EXAM Physical Exam Const Vital Signs: 11/25/23 22:58 11/25/23 23:38 11/26/23 00:00 Temperature 97.6 F L 98.7 F Temperature Source Temporal Oral Pulse Rate 128 H 116 H Respiratory Rate 16 18 Respiratory Effort Normal Respiratory Pattern Normal Blood Pressure 128/83 H 158/83 H Blood Pressure Mean 98 108 Pulse Ox 100 99 Oxygen Delivery Method Room Air Room Air 11/26/23 01:00 11/26/23 02:00 11/26/23 02:00 Temperature 98.9 F 98.0 F Temperature Source Oral Temporal Pulse Rate 115 H 110 H 110 H Respiratory Rate 19 H 21 H 21 H Respiratory Effort Respiratory Pattern Blood Pressure 144/87 H 141/78 H 141/78 H Blood Pressure Mean 106 99 99 Pulse Ox 98 100 100 Oxygen Delivery Method Room Air Room Air Room Air 11/26/23 03:00 11/26/23 04:00 11/26/23 05:50 Temperature 97.8 F 98.1 F Temperature Source Temporal Temporal Pulse Rate 125 H 127 H 110 H Respiratory Rate 18 21 H 16 Respiratory Effort Respiratory Pattern Blood Pressure 130/74 H 132/85 H 154/92 H Blood Pressure Mean 92 100 112 Pulse Ox 97 97 99 Oxygen Delivery Method Room Air Room Air Room Air Positive well nourished and well developed General Appearance ED: well developed; Negative for pallor HEENT Reports dry mucous membranes HEENT Narrative: There is mild erythema on the posterior pharynx without exudates trismus change in voice or difficulty with secretions No tongue or lip swelling noted Mucous membranes are dry and tacky Mouth ED: Yes dry mucous membranes Mouth: dry mucous membranes Eyes PERRL and EOMs intact bilaterally General Eye ED: Negative for scleral icterus Neck supple Neck Narrative: No nuchal rigidity or meningeal signs Chest Wall palpation of chest normal Resp normal respiratory effort and clear to auscultation bilaterally Cardio regular rhythm Rate: tachycardic and other Other Details: Tachycardic rate with regular rhythm Radial and carotid pulses are equal and symmetric GI non-distended GI Narrative: Abdomen is soft and nondistended with hyperactive bowel sounds. There is pain on palpation in the midline to suprapubic region that extends towards the left side of the abdomen. However no voluntary guarding or rigidity No pulsatile mass or fluid wave Auscultation: hyperactive bowel sounds Palpation: soft Extremity normal to inspection Extremity Narrative: No asymmetric edema no pitting edema negative Homans' sign bilaterally Neuro oriented x3, CN's II-XII intact bilaterally and no sensory deficits noted Sensorium / Orientation: alert Motor Exam: strength 5/5 throughout Psych mental status grossly normal Skin no rashes or lesions noted, no wounds and No skin turgor normal Skin Narrative: Skin turgor is increased General Skin Exam: Negative for jaundice or pallor MDM MDM MDM Narrative Medical decision making narrative: Patient presented to the ER tachycardic there was a stable vital. History and exam is concerning for DKA versus HHS versus colitis versus acute kidney injury. Based on her history of diabetes the most likely diagnosis is DKA and basic blood work with serum acetone and VBG were obtained. Patient's anion gap is elevated her serum bicarb is extremely low her pH is low at 7.17 consistent withacidosis and she has positive acetone consistent with DKA. Secondary to this she was started on IV fluids and an insulin drip. Medicine was also contacted for admission. Based on her elevated white count a CT scan of the abdomen and pelvis was also obtained based on her pain and symptoms of nausea/vomiting. It showed changes concerning for developing colitis or early appendicitis. The patient does not have pain in the right lower quadrant and therefore do not feelthat this correlates with early appendicitis. With the left side abdominal painthis could be early colitis and therefore antibiotics will be started. However at this time as she is in DKA and will require insulin drip and continuous monitoring she will be admitted to the ICU for further care History & Record Review Discussion w/independent historian: Patient Lab Data Attestation: I reviewed the patient's lab results. Labs: Laboratory Results - last 24 hr 11/25/23 11/25/23 11/26/23 23:02 23:42 00:54 WBC 24.5 H RBC 5.62 H Hgb 15.7 H Hct 48.7 H MCV 86.7 MCH 27.9 MCHC 32.2 RDW Std Deviation 41.1 RDW Coeff of Marilynn 13.1 Plt Count 444 MPV 9.4 Immature Gran % (Auto) 2.000 H Neut % (Auto) 91.9 H Lymph % (Auto) 3.4 L [place] % (Auto) 2.4 Eos % (Auto) 0.0 Baso % (Auto) 0.3 Absolute Neuts (auto) 22.5 H Absolute Lymphs (auto) 0.84 Nucleated RBC % 0 Differential Comment SCANNED Atypical Lymphocytes 1+ Sodium 137 Potassium 3.8 Chloride 103 Carbon Dioxide 7.0 L* Anion Gap 27 H BUN 20 H Creatinine 1.00 Estim Creat Clear Calc 72.78 Est GFR (MDRD) Af Amer 86 Est GFR (MDRD) Non-Af 71 BUN/Creatinine Ratio 20.0 Glucose 424 H Lactic Acid Cancelled Calcium 9.6 Magnesium 1.9 Total Bilirubin 0.70 Direct Bilirubin 0.17 AST 17 ALT 18 Alkaline Phosphatase 116 Total Protein 8.6 H Albumin 4.8 Globulin 3.8 Lipase 13 Urine Color Urine Clarity Urine pH Ur Specific [place] Urine Protein Urine Glucose (UA) Urine Ketones Urine Occult Blood Urine Nitrite Urine Bilirubin Urine Urobilinogen Ur Leukocyte Esterase Urine RBC Urine WBC Ur Squamous Epith Cells Urine Bacteria Urine Mucus Urine Test Acetone Level MODERATE H POC Glucose 486 H* 415 H 11/26/23 11/26/23 11/26/23 01:15 02:54 04:03 WBC RBC Hgb Hct MCV MCH MCHC RDW Std Deviation RDW Coeff of Marilynn Plt Count MPV Immature Gran % (Auto) Neut % (Auto) Lymph % (Auto) [place] % (Auto) Eos % (Auto) Baso % (Auto) Absolute Neuts (auto) Absolute Lymphs (auto) Nucleated RBC % Differential Comment Atypical Lymphocytes Sodium Potassium Chloride Carbon Dioxide Anion Gap BUN Creatinine Estim Creat Clear Calc Est GFR (MDRD) Af Amer Est GFR (MDRD) Non-Af BUN/Creatinine Ratio Glucose Lactic Acid Calcium Magnesium Total Bilirubin Direct Bilirubin AST ALT Alkaline Phosphatase Total Protein Albumin Globulin Lipase Urine Color Yellow Urine Clarity Clear Urine pH 5.0 Ur Specific [place] 1.025 Urine Protein 100 H Urine Glucose (UA) 1000 H Urine Ketones 150 A* Urine Occult Blood 10 H Urine Nitrite Negative Urine Bilirubin Negative Urine Urobilinogen Normal Ur Leukocyte Esterase Negative Urine RBC 0 SEEN Urine WBC 0 SEEN Ur Squamous Epith Cells 0 SEEN Urine Bacteria 0 SEEN Urine Mucus 0 SEEN Urine Test Negative Acetone Level POC Glucose 299 H 275 H 11/26/23 11/26/23 05:26 06:22 WBC RBC Hgb Hct MCV MCH MCHC RDW Std Deviation RDW Coeff of Marilynn Plt Count MPV Immature Gran % (Auto) Neut % (Auto) Lymph % (Auto) [place] % (Auto) Eos % (Auto) Baso % (Auto) Absolute Neuts (auto) Absolute Lymphs (auto) Nucleated RBC % Differential Comment Atypical Lymphocytes Sodium Potassium Chloride Carbon Dioxide Anion Gap BUN Creatinine Estim Creat Clear Calc Est GFR (MDRD) Af Amer Est GFR (MDRD) Non-Af BUN/Creatinine Ratio Glucose Lactic Acid Calcium Magnesium Total Bilirubin Direct Bilirubin AST ALT Alkaline Phosphatase Total Protein Albumin Globulin Lipase Urine Color Urine Clarity Urine pH Ur Specific [place] Urine Protein Urine Glucose (UA) Urine Ketones Urine Occult Blood Urine Nitrite Urine Bilirubin Urine Urobilinogen Ur Leukocyte Esterase Urine RBC Urine WBC Ur Squamous Epith Cells Urine Bacteria Urine Mucus Urine Test Acetone Level POC Glucose 197 H 200 H ABG Data ABG results: ABG 11/26/23 01:01 Specimen Type LUIS Sample Site Not entered VBG pH 7.17 L* VBG pO2 102 H VBG HCO3 7 L VBG Total CO2 8 L VBG O2 Sat (Calc) 96 H VBG Base Excess -22 L POC Mix VBG pCO2 Pt Tmp 19.1 L O2 Delivery Device Room Air Crit Call To/Read Back Yes Blood Gas Notified Whom Dr. Mina Blood Gas Notified Time 01:02:40 Radiography Diagnostic Testing: Clinical Impression(s) from Imaging Studies Abdomen/Pelvis CT 11/26/23 02:43 IMPRESSION: 1. Collapsed and questionably mildly thick-walled appearance of most of the colon. Correlate with any leukocytosis or diarrhea. Possible early or mild colitis. 2. Borderline gasless appendix, measurements of 5 mm to 7 mm. No surrounding inflammation to confirm acute appendicitis. Cannot exclude very early appendicitis. 3. No free fluid. 4. Small retroperitoneal and mesenteric lymph nodes, stable. Electronically Signed: Anna Enriquez MD at 4:17 EDT , Management Discussion w/another healthcare provider: Hospitalist Critical Care Time Critical Care Time: Yes Critical care time (excluding procedures): Discussing w/Patient &/or Family/CareGiver, Discussing w/Consultants and - (Critical care time of 33 minutes) Discharge Plan Dx/Rx/DC Orders Clinical Impression: DKA (diabetic ketoacidosis), Acute colitis, Insulin dependent type 1 diabetes mellitus, Nausea & vomiting Disposition Disposition: Acute Care Hospital [facility] What to do if you have Problems For any increased pain, shortness of breath, bleeding, nausea or vomiting, chestpain, or any unexpected problems, contact your Primary Care Provider. Call [facility] ([phone]) or report to the closest Emergency Room. Call 911 if necessary. 11/26/23 0653 <Electronically signed by Sunil Mina DO> Cosigner Signature (if applicable): CC: Minnie Hodge ~ Signed [facility] Work Phone: [phone] Discharge summary Author Kassy Rosales [facility] October 16, 2023 10:13pm Note Date/Time October 16, 2023 4:1 0pm [facility] Medical Records Department [address] [place] [address] Emergency Department Summary 10/16/23 MR#: [id number] Acct: [id number] Name: KALIE DESIR Rep #:[id number] : 2000 23 From: Kassy Rosales DO PCP: Minnie Hodge Status:ADM I N Location: ICU CVICU20 4-1 HPI History of Present Illness Chief Complaint: Hyperglycemia Detail of Chief Complaint: Elevated blood sugars Informant: patient and parent Narrative Narrative: Patient presents to the emergency department complaint of elevated blood sugars today. Patient states that she started having nausea and vomiting last evening. Also having diarrhea. Patient is a type I diabetic. Patient states that she thinks she may have accidentally bumped off her insulin pump last evening and did not have anyone to put back on. She denies recent illness. Denies dysuria urgency or frequency. She has had history of DKA. [facility] Medical History Anxiety and depression Asthma Cannabis hyperemesis syndrome concurrent with and due to cannabis abuse Diabetes type 1, controlled DKA, type 1 History of marijuana use Hypokalemia Hypophosphatemia Implanon in place Insulin pump titration Presence of insulin pump Home Medications albuterol sulfate 90 mcg/actuation aerosol inhaler (Ventolin HFA) 2 puff inhalation Q4H PRN SHORTNES OF BREATH/WHEEZING 08/25/18 [History Last Taken 03/02/23] Ketone Urine Test (acetone (urine) test) #50 ea 11/05/21 [Rx Last Taken Unknown] fluticasone propionate 50 mcg/actuation nasal spray,suspension 2 spray intranasal DAILY NASAL CONGESTION 11/21/22 [History Last Taken 02/12/23] blood-glucose transmitter (Adpeps G6 Transmitter device) #1 ea 11/23/22 [Rx Last Taken Unknown] pen needle, diabetic 32 gauge x 5/32 (BD Ultra-Fine Opal Pen Needle) #120 ea 11/23/22 [Rx Last Taken Unknown] hydroxyzine pamoate 25 mg capsule (Vistaril) 25 mg PO QHS ITCHING #30 caps 01/13/23 [Rx Last Taken 02/12/23] insulin glargine 100 unit/mL (3 mL) subcutaneous pen (Basaglar KwikPen U-100 Insulin) 20 unit subcut QHS 03/01/23 [History Last Taken 03/02/23] blood-glucose sensor (Dexcom G6 Sensor device) #9 ea 05/12/23 [Rx Last Taken Unknown] insulin aspart U-100 100 unit/mL (3 mL) subcutaneous pen (Novolog FlexPen U-100 Insulin aspart) 15 unit (0.15 mL) subcut TID #40.5 mL 06/05/23 [Rx Last Taken Unknown] blood-glucose transmitter (Dexcom G6 Transmitter device) #1 ea 08/14/23 [Rx Last Taken Unknown] insulin pump cartridge,automated dose,BT with controller subcutaneous (Omnipod 5G6 Intro Kit (Gen 5) subcutaneous cartridge with controller) #1 ea 08/15/23 [Rx Last Taken Unknown] insulin pump cart,automated,BT (Omnipod 5 G6 Pods (Gen 5) subcutaneous cartridge) #45 ea 09/18/23 [Rx Last Taken Unknown] Allergy/AdvReac Type Severity Reaction Status Date / Time bee venom protein (honey bee) Allergy Severe Anaphylaxis Verified 10/16/23 15:57 [bee stings] Penicillins Allergy Unknown Verified 10/16/23 15:57 Sulfa (Sulfonamide Allergy Unknown Verified 10/16/23 15:57 Antibiotics) prednisone AdvReac Vomiting Verified 10/16/23 15:57 Family History Grandmother Diabetes Sister Asthma Brother Asthma Mother Heart disease Surgical History History of placement of ear tubes Social History household members: family Smoking Status: Never smoker second hand exposure: No alcohol intake: never substance use type: other details: Cannabis, last use ~ 1 month prior, ingested. ROS ROS ED Review of Systems ROS Unobtainable: other Constitutional Constitutional ED: Reports lethargy; Denies chills, fever(s), sweats or weight loss Eyes Eyes: Denies blurry vision, change in vision or diplopia ENT ENT ED: Denies rhinorrhea or sore throat Cardiovascular Cardiovascular: Denies chest pain, orthopnea or racing heartbeat Respiratory/Chest Respiratory/Chest: Denies cough, dyspnea, dyspnea on exertion, orthopnea or sputum Gastrointestinal Gastrointestinal: Reports diarrhea, nausea and vomiting; Denies abdominal pain Genitourinary Genitourinary ED: Denies dysuria, hematuria or urinary frequency Musculoskeletal Musculoskeletal: Denies arthralgias, back pain, myalgias or neck pain Integumentary Denies abscess, Abrasions or rash Neurologic Neurologic: Denies headache(s) or weakness Psychiatric Psychiatric: Denies anxiety, depression or suicidal thoughts Endocrine Endocrinology: Denies polydipsia, polyphagia or polyuria Hematologic/Lymphatic Hematologic/Lymphatic: Denies easy bleeding, easy bruising or lymphadenopathy Allergic/Immunologic Allergic/Immunologic ED: Denies mouth swelling, tongue swelling or urticaria EXAM Physical Exam Const Vital Signs: 10/16/23 15:57 10/16/23 16:01 10/16/23 16:25 Temperature 97.0 F L Temperature Source Temporal Pulse Rate 125 H 105 H Respiratory Rate 16 16 Respiratory Pattern Tachypnea Blood Pressure 128/95 H 145/95 H Blood Pressure Mean 106 111 Pulse Ox 100 99 Oxygen Delivery Method Room Air Room Air 10/16/23 16:49 10/16/23 17:00 Temperature Temperature Source Pulse Rate 99 98 Respiratory Rate 27 H 23 H Respiratory Pattern Blood Pressure 140/82 H Blood Pressure Mean 99 Pulse Ox 98 97 Oxygen Delivery Method Room Air Positive well nourished and well developed General Appearance ED: well developed and NAD HEENT Reports TM's clear and dry mucous membranes; Denies moist mucous membranes normocephalic and atraumatic; Negative for trauma or tenderness Tympanic Membrane ED: Yes TM's clear Mouth ED: Yes dry mucous membranes Mouth: dry mucous membranes Eyes PERRL and EOMs intact bilaterally General Eye ED: Negative for pale conjunctiva or scleral icterus Neck no lymphadenopathy, supple and no JVD General: Negative for tenderness Chest Wall inspection of chest normal and palpation of chest normal Chest: Negative for tenderness Resp normal respiratory effort and clear to auscultation bilaterally Effort and Inspection: Negative for respiratory distress or pain with movement Auscultation: Negative for rhonchi, wheezes or diminished lung sounds Cardio regular rhythm, S1 normal heart sound, S2 normal heart sound and no murmurs; Negative for regular rate Rate: tachycardic Peripheral Pulses: pulses 2+ throughout GI normal to inspection, nondistended, normoactive bowel sounds, soft to palpation,non-tender, non-distended and no masses Back/Spine no CVA tenderness and no thoracic nor lumbar tenderness Extremity normal to inspection General Extremety ED: Negative for edema General Extremity: Negative for edema Neuro oriented x3, CN's II-XII intact bilaterally, no sensory deficits noted and gait normal Sensorium / Orientation: awake, alert, oriented to person, oriented to place andoriented to time Motor Exam: strength 5/5 throughout and strength abnormal Psych mental status grossly normal Skin no rashes or lesions noted and no wounds MDM MDM MDM Narrative Medical decision making narrative: Patient presents with hyperglycemia and ran out of insulin pump apparently. Shehas been vomiting and diarrhea. History of DKA. Patient presents tachycardic and tachypneic. Suspect DKA. IV line established. Patient was given a liter of the same fluid bolus and was ordered an insulin drip. CBC with differential,16.9 with hemoglobin 16 and platelet count of 455. Chemistries unremarkable. Glucose was 387. CO2 was 17 and anion gap of 19. Moderate acetone. hCG was negative. Will discuss case with hospitalist to evaluate patient for admission for DKA. Lab Data Attestation: I reviewed the patient's lab results. Labs: Laboratory Results - last 24 hr 10/16/23 16:20 WBC 16.9 H RBC 5.87 H Hgb 16.4 H Hct 50.4 H MCV 85.9 MCH 27.9 MCHC 32.5 RDW Std Deviation 40.3 RDW Coeff of Marilynn 13.0 Plt Count 455 H MPV 9.1 Immature Gran % (Auto) 0.500 Neut % (Auto) 93.3 H Lymph % (Auto) 3.7 L [place] % (Auto) 2.1 Eos % (Auto) 0.0 Baso % (Auto) 0.4 Absolute Neuts (auto) 15.8 H Absolute Lymphs (auto) 0.63 L Nucleated RBC % 0 Sodium 137 Potassium 4.2 Chloride 101 Carbon Dioxide 17.0 L Anion Gap 19 H BUN 18 Creatinine 1.02 Estim Creat Clear Calc 73.50 Est GFR (MDRD) Af Amer 85 Est GFR (MDRD) Non-Af 70 BUN/Creatinine Ratio 17.6 Glucose 387 H Calcium 10.0 Magnesium 2.2 Serum , Qual NEGATIVE Acetone Level MODERATE H POC Glucose 357 H EKG Initial EKG: Attestation: I personally reviewed and interpreted this EKG as follows: Comments: Sinus rhythm with rate of [address] changes Discharge Plan Dx/Rx/DC Orders Clinical Impression: Hx of type 1 diabetes mellitus, Diabetic ketoacidosis, Tachycardia Disposition Disposition: Acute Care Hospital [facility] What to do if you have Problems For any increased pain, shortness of breath, bleeding, nausea or vomiting, chestpain, or any unexpected problems, contact your Primary Care Provider. Call [facility] ([phone]) or report to the closest Emergency Room. Call 911 if necessary. 10/16/232212 <Electronically signed by Kassy Rosales DO> Cosigner Signature (if applicable): CC: Minnie Hodge ~ Signed [facility] Work Phone: [phone] History and physical note Author Damien Villagran [facility] October 16, 2023 5:58pm Note Date/Time October 16, 2023 5:5 2pm [facility] Medical Records Department [address] [place] [address] H&P Exam - Hospitalist 10/16/23 1748 MR#: [id number] Acct: [id number] Name: KALIE DESIR Rep #:[id number] : 2000 23 From: Damien Villagran DO PCP: Minnie Hodge Status:REG E R Location: ED HPI - General General Date of Service: 10/16/23 Chief Complaint: Nausea and vomiting HPI Narrative KALIE DESIR, is a 23 F who presents with nausea and vomiting. Patient is typeI diabetic who had an insulin pump and then it apparently dislodged last night and then patient started having symptoms with nausea vomiting, abdominal pain consistent with she has had DKA in the past. Did not have any other supplies ofinsulin so presented to the emergency room. Emergency room, patient was noted to be in DKA and did receive IV fluids as well as started on an insulin drip. [facility] Medical History Anxiety and depression Asthma Cannabis hyperemesis syndrome concurrent with and due to cannabis abuse Diabetes type 1, controlled DKA, type 1 History of marijuana use Hypokalemia Hypophosphatemia Implanon in place Insulin pump titration Presence of insulin pump Home Medications albuterol sulfate 90 mcg/actuation aerosol inhaler (Ventolin HFA) 2 puff inhalation Q4H PRN SHORTNES OF BREATH/WHEEZING 08/25/18 [History Last Taken 03/02/23] Ketone Urine Test (acetone (urine) test) #50 ea 11/05/21 [Rx Last Taken Unknown] fluticasone propionate 50 mcg/actuation nasal spray,suspension 2 spray intranasal DAILY NASAL CONGESTION 11/21/22 [History Last Taken 02/12/23] blood-glucose transmitter (Dexcom G6 Transmitter device) #1 ea 11/23/22 [Rx Last Taken Unknown] pen needle, diabetic 32 gauge x 5/32 (BD Ultra-Fine Opal Pen Needle) #120 ea 11/23/22 [Rx Last Taken Unknown] hydroxyzine pamoate 25 mg capsule (Vistaril) 25 mg PO QHS ITCHING #30 caps 01/13/23 [Rx Last Taken 02/12/23] insulin glargine 100 unit/mL (3 mL) subcutaneous pen (Basaglar KwikPen U-100 Insulin) 20 unit subcut QHS 03/01/23 [History Last Taken 03/02/23] blood-glucose sensor (Dexcom G6 Sensor device) #9 ea 05/12/23 [Rx Last Taken Unknown] insulin aspart U-100 100 unit/mL (3 mL) subcutaneous pen (Novolog FlexPen U-100 Insulin aspart) 15 unit (0.15 mL) subcut TID #40.5 mL 06/05/23 [Rx Last Taken Unknown] blood-glucose transmitter (Dexcom G6 Transmitter device) #1 ea 08/14/23 [Rx Last Taken Unknown] insulin pump cartridge,automated dose,BT with controller subcutaneous (Omnipod 5G6 Intro Kit (Gen 5) subcutaneous cartridge with controller) #1 ea 08/15/23 [Rx Last Taken Unknown] insulin pump cart,automated,BT (Omnipod 5 G6 Pods (Gen 5) subcutaneous cartridge) #45 ea 09/18/23 [Rx Last Taken Unknown] Allergy/AdvReac Type Severity Reaction Status Date / Time bee venom protein (honey bee) Allergy Severe Anaphylaxis Verified 10/16/23 15:57 [bee stings] Penicillins Allergy Unknown Verified 10/16/23 15:57 Sulfa (Sulfonamide Allergy Unknown Verified 10/16/23 15:57 Antibiotics) prednisone AdvReac Vomiting Verified 10/16/23 15:57 Family History Grandmother Diabetes Sister Asthma Brother Asthma Mother Heart disease Surgical History History of placement of ear tubes Social History household members: family Smoking Status: Never smoker second hand exposure: No alcohol intake: never substance use type: other details: Cannabis, last use ~ 1 month prior, ingested. ROS ROS Narrative All review of systems were negative except as mentioned above in the history of present illness and the other review of systems. Vital Signs Vital Signs Vital Signs: 10/16/23 15:57 10/16/23 16:01 10/16/23 16:25 Temperature 36.1 C L Temperature Source Temporal Pulse Rate 125 H 105 H Respiratory Rate 16 16 Respiratory Pattern Tachypnea Blood Pressure 128/95 H 145/95 H Blood Pressure Mean 106 111 Pulse Ox 100 99 Oxygen Delivery Method Room Air Room Air 10/16/23 16:49 10/16/23 17:00 Temperature Temperature Source Pulse Rate 99 98 Respiratory Rate 27 H 23 H Respiratory Pattern Blood Pressure 140/82 H Blood Pressure Mean 99 Pulse Ox 98 97 Oxygen Delivery Method Room Air Weight Weight: 69.8 kg Body Mass Index (BMI) 31.1 Physical Exam Const alert and no apparent distress Constitutional Narrative: Listless. Afebrile. General Appearance: cooperative HEENT normocephalic and head/scalp atraumatic Neck no lymphadenopathy Neck Narrative: no thyromegaly Resp normal respiratory effort, no retractions, no use of accessory muscles and clearto auscultation bilaterally Cardio regular rate, regular rhythm, S1 normal heart sound and S2 normal heart sound GI normal to inspection, nondistended, normoactive bowel sounds, soft to palpation,non-tender and non-distended Extremity normal to inspection Neuro Sensorium / Orientation: awake and alert Psych Psych Narrative: flat affect Results Lab / Micro Data 10/16/23 16:20 10/16/23 16:20 Labs: Laboratory Results - last 24 hr 10/16/23 16:20: WBC 16.9 H, RBC 5.87 H, Hgb 16.4 H, Hct 50.4 H, MCV 85.9, MCH 27.9, MCHC 32.5, RDW Std Deviation 40.3, RDW Coeff of Marilynn 13.0, Plt Count 455 H,MPV 9.1, Immature Gran % (Auto) 0.500, Neut % (Auto) 93.3 H, Lymph % (Auto) 3.7 L, [place] % (Auto) 2.1, Eos % (Auto) 0.0, Baso % (Auto) 0.4, Absolute Neuts (auto)15.8 H, Absolute Lymphs (auto) 0.63 L, Nucleated RBC % 0, Sodium 137, Potassium 4.2, Chloride 101, Carbon Dioxide 17.0 L, Anion Gap 19 H, BUN 18, Creatinine 1.02, Estim Creat Clear Calc 73.50, Est GFR (MDRD) Af Amer 85, Est GFR (MDRD) Non-Af 70, BUN/Creatinine Ratio 17.6, Glucose 387 H, Calcium 10.0, Magnesium 2.2, Serum , Qual NEGATIVE, Acetone Level MODERATE H, POC Glucose 357 H 10/16/23 17:04: Urine Color Yellow, Urine Clarity Clear, Urine pH 5.0, Ur Specific [place] 1.025, Urine Protein 100 H, Urine Glucose (UA) 1000 H, Urine Ketones 150 A*, Urine Occult Blood 10 H, Urine Nitrite Negative, Urine BilirubinNegative, Urine Urobilinogen Normal, Ur Leukocyte Esterase Negative, Urine RBC 0SEEN, Urine WBC 0 SEEN, Ur Squamous Epith Cells 0-5 SEEN, Urine Bacteria 0 SEEN,Urine Mucus 0 SEEN 10/16/23 17:15: POC Glucose 381 H Assessment & Plan Assessment/Plan (1) Diabetic ketoacidosis: PLAN: Plan DKA * In a type I diabetic. Patient stated that her insulin pump dislodged but did not have any other supplies to be able to administer insulin at home. Hence why she came into the hospital. * Patient be on an insulin drip as well as IV fluids. Routine BMPs. When she is out of DKA I would recommend starting her on insulin glargine 20 units and then prandial insulin. Patient had been on 15 3 times daily, and depending on the patient's oral intake may wish to either have a lower dose or just utilize sliding scale insulin. * Patient may need some insulin when she is discharge either through her pump or to be prescribed prandial and basal insulin upon discharge. * Patient has a follow-up appointment with [facility] on November 09. * Check an A1c VTE prophylaxis with enoxaparin Patient warrants admission with high risk medication with an insulin drip. Thiscannot be safely managed at home because of the risk of worsening DKA could be deadly. Charges/Coding Visit Charges Inpatient E&M: 13223 Init Hosp L3 10/16/23 8990 <Electronically signed by Damien Villagran DO> Cosigner Signature (if applicable): CC: Minnie Hodge; Dr. Damien Villagran DO~ Signed [facility] Work Phone: [phone]) 611-490409-18-2023 History of Present illness Narrative* Arely Velez APRN.CHANGER FIXER - 04/07/2023 12:23 PM EDT SUBJECTIVE: Kalie Desir is a 23 year old female. [...] 2 Puffs as instructed every 4 hours asneeded. 18 g 0 etonogestrel (NEXPLANON) subdermal implant 68 mg ONCE potassium chloride ER (K-DUR, KLOR-CON) 20 mEq tablet Take 20 mEq by mouth twice daily. 0 Alcohol Swabs (ALCOHOL PREP PADS) padm Apply 1 application to affected area every 4 hours as needed(blood glucose check). 300 Each 11 NOVOLOG U-100 [...] 100 unit/mL (3 mL) Inject 45 Units subcutaneouslydaily at bedtime. Per Endo: Dr. Chow (Patient not taking: Reported on 12/31/2021 ) insulin aspart U-100 (NOVOLOG) 100 unit/mL (3 mL) Inject 30 Units subcutaneously three times daily before meals. Per Dr. Geraldo Escobar (Patient not taking: Reported on 12/26/2021 ) flash glucose sensor (FREESTYLE DANIELA 14 DAY SENSOR) kit apply 1 SENSOR [...] Each 0 flash glucose scanning reader (FREESTYLE DANIELA 14 DAY READER) [facility] [facility] [place], [place] For blood sugar checks 4 times aday (Patient not taking: Reported on 10/16/2022) 1 Each 1 Insulin Rincon, Disposable, (OPAL PEN NEEDLE) 32 gauge x 5/32 ndle Use with insulin injections (Patient not taking: Reported on 12/26/2021 ) 200 Each 11 Insulin Syringe-Needle U-100 (BD ULTRAFINE INSULIN) 1 mL 31 gauge x 5/16 syrg Supply to be used as directed for insulin administration up to 3 times daily. (Patient not taking: Reported on 10/16/2022)100 Syringe 11 blood sugar diagnostic (FREESTYLE TEST) test strip Use as instructed 10 times daily (Patient not taking: Reported on 12/26/2021 ) 300 Strip 11 glucagon, human recombinant, (GLUCAGON EMERGENCY KIT, HUMAN,) 1 mg injection Inject 1 mg intramuscularly as directed. Use when pt is unconsciousness or having a seizure. (Patient not taking: Reportedon 12/26/2021 ) 1 Each 3 Inhalational Spacing [...] mucosal membranes moist pink no exudate no GOLF COURSE ASSISTANT yoli TM clearwith no signs of infection Neck: full ROM, [...] Strep testing MDM: Patient presented to the [facility] today for COVID and Influenza testing. Vital signs were evaluated and found to be within normal limits. Kalie Desir was in no acute distress. Strep testing is negative. We discussed the COVID results will be back in the next 1-2 days. In [facility] with [facility] guidelines, Kalie Desir was instructed to quarantine, if indicated, based on symptoms and exposure. We have discussed over the counter medications to use for their symptoms. She has requesteda work note and this was given. They will follow-up with their family doctor in the next 2-3 days. If symptoms worsen they will go straight to the emergency department for further evaluation and treatment. They voiced understandingof the plan of care and are in agreement. ASSESSMENT/PLAN: 1. Exposure to SARS-associated coronavirus - ICD9: V01.82, ICD10: Z20.828 (primary diagnosis) - COVID & INFLUENZA A/B & RSV NAAT, ROUTINE - COVID NAAT, UPPER RESPIRATORY, ROUTINE - ROUTINE FLU A/B + RSV 2. Sore throat - ICD9: 462, ICD10: J02.9 - RAPID STREP TEST B/O Arely Velez APRN.CHANGER FIXER documented in [facility] Miscellaneous Notes* Telephone Encounter - Arely Ji RN - 03/27/2023 11:04 AM EDT Sam Cortes RN with [facility] called and requested Pts last OV note be faxed to [employer]. Faxed to # [phone]. documented in this encounterSalem [facility]08-16-2023 Discharge summary Author Diego Haas [facility] March 05, 2023 2:10pm Note Date/Time March 05, 2023 12 :44pm [facility] Medical Records Department [address] [place] [id number] Instructions for Home/Discharge Instructions 03/05/23 1241 MR#: [id number] Acct: [id number] Name: KALIE DESIR Rep #:[id number] : 2000 22 From: Diego santiago DO PCP: Minnie Hodge Status:ADM I N Discharge Instructions Diet Discharge Diet: No restrictions Activity Discharge Activity: Return to Normal Activity Weight Bearing Status: Full weight bearing Follow Up Care Please Follow Up With: Minnie Hodge When: as needed Test Results: Test results from this visit will be discussed in further detail at your follow- up appointment, if applicable. Pending Tests Upon Discharge: none Discharge Plan Admission Admit Date/Time: 03/03/23 15:17 Primary Reason for Your Visit: DKA Attending Provider: Diego Haas Primary Care Provider: Minnie Hodge Consulting Providers: Uziel Mahmood Instructions Additional Instructions / Restrictions: Please take your insulin at home as previously prescribed. Continue to push intake of high electrolyte fluids, as well as potassium rich foods. Continue totreat your esophagitis with Pepcid twice daily, sucralfate and ibuprofen as needed. Follow- up with your primary care doctor and/or your body art technician as needed. Discharge Orders/Prescriptions Prescriptions: New ondansetron 4 mg tablet,disintegrating 4 mg PO Q8H PRN (Reason: nausea and vomiting) 7 Days Qty: 14 0RF Continued hydroxyzine pamoate [Vistaril] 25 mg capsule 25 mg PO QHS Qty: 30 6RF albuterol sulfate [Ventolin HFA] 18 GM HFA aerosol inhaler 2 puff inhalation Q4H PRN (Reason: SHORTNES OF BREATH/WHEEZING) fluticasone propionate 50 mcg/actuation spray,suspension 2 spray INTRANASAL DAILY insulin aspart U-100 [Novolog FlexPen U-100 Insulin] 100 unit/mL (3 mL) insulin pen 15 unit subcut TID insulin glargine [Basaglar KwikPen U-100 Insulin] 100 unit/mL (3 mL) insulin pen 20 unit subcut QHS No Action (DME) Dexcom G6 Sensor Device See Rx Instructions .Route Qty: 10 5RF Rx Instructions: As directed (DME) Dexcom G6 Transmitter Device See Rx Instructions .Route Qty: 1 3RF Rx Instructions: As directed (DME) pen needle, diabetic [BD Ultra-Fine Opal Pen Needle] 32 gauge x 5/32 needle See Rx Instructions .ROUTE .MEDSUPPLY Qty: 120 5RF Rx Instructions: 4 times daily (DME) Omnipod 5 G6 Pods (Gen 5) Cartridge See Rx Instructions .Route Qty: 45 1RF Rx Instructions: change every 48-72 hours (DME) Omnipod 5 G6 Intro Kit (Gen 5) Cartridge See Rx Instructions .Route Qty: 1 0RF Rx Instructions: As directed (DME) Ketone Urine Test Strip See Rx Instructions .ROUTE .MEDSUPPLY Qty: 50 1RF Rx Instructions: once/day Referrals / Follow Up: Minnie Hodge [Primary Care Provider] - Pj Chow MD [Med Staff - Courtesy Staff] - 03/13/23 1:45 pm (Transportation was scheduled through your insurance with pickup time between 1:00-1:15 confirmation #[id number]. ) Disposition Disposition (needs filled in before D/C Order can be placed): Home, Self Care 03/05/23 1410<Electronically signed by Diego Haas DO>Diego Haas DO CC: Minnie Hodge; Dr. Uziel Mahmood MD ~ Signed [facility] Work Phone: 1(853) 332-176008-15-2023 Progress note Author Diego Waldo [facility] March 04, 2023 3:16pm Note Date/Time March 04, 2023 3: 16pm [facility] Medical Records Department [address] [place] [address] Progress Note - Hospitalist 03/04/23 1501 MR#: [id number] Acct: [id number] Name: KALIE DESIR Rep #:[id number] : 2000 22 From: Diego santiago DO PCP: Minnie Hodge Status:ADM I N Location: ICU ICU02-1 Reason for Visit Reason for Visit: Diagnoses Type 1 diabetes mellitus with ketoacidosis without coma (03/03/23) Subjective Subjective Patient seen at bedside. Plan comfortably in bed, conversing normally, no acutedistress. She feels fatigued and has moderate pain with swallowing, but does feel improved since admission. She has only been able to get down some liquids since admission. However, she does feel hungry and wants to eat. She is askingfor a medication to help coat her esophagus and stomach so that eating is not aspainful. She denies any fevers or chills. No other acute concerns. Objective Data Objective Data Vital Signs: Vital Signs Temp Pulse Resp BP Pulse Ox O2 Del Method 98.3 F 82 16 146/92 H 98 Room Air 03/04/23 14:30 03/04/23 14:30 03/04/23 14:30 03/04/23 14:30 03/04/23 14:30 03/04/23 14:30 Oxygen Delivery Method Room Air Weight: 59.4 kg Body Mass Index (BMI) 26.4 Intake & Output: Intake and Output for Last 24 Hours 03/02/23 03/03/23 03/04/23 23:59 23:59 23:59 Intake Total 3310 / 3410 4287.75 / 4287.75 Output Total 400 / 400 2200 / 2200 Balance 2910 / 3010 2087.75 / 2087.75 Lab / Micro Data Attestation: I reviewed the patient's lab results. 03/04/23 03:15 03/04/23 12:00 Labs: Laboratory Results - last 24 hr 03/03/23 14:47: POC Glucose 246 H 03/03/23 16:16: POC Glucose 216 H 03/03/23 17:40: Sodium Cancelled, Potassium Cancelled, Chloride Cancelled, Carbon Dioxide Cancelled, Anion Gap Cancelled, BUN Cancelled, Creatinine Cancelled, Estim Creat Clear Calc Cancelled, Est GFR (MDRD) Af Amer Cancelled, Est GFR (MDRD) Non-Af Cancelled, BUN/Creatinine Ratio Cancelled, Glucose Cancelled, Calcium Cancelled 03/03/23 18:01: POC Glucose 197 H 03/03/23 19:25: Sodium 135 L, Potassium 3.4 L, Chloride 106, Carbon Dioxide 14.0L, Anion Gap 15, BUN 6 L, Creatinine 0.44 L, Estim Creat Clear Calc 151.26, Est GFR (MDRD) Af Amer 224, Est GFR (MDRD) Non-Af 185, BUN/Creatinine Ratio 13.6, Glucose 195 H, Calcium 7.7 L 03/03/23 21:18: POC Glucose 143 H 03/03/23 22:50: Sodium 136, Potassium 2.6 L*, Chloride 108 H, Carbon Dioxide 17.0 L, Anion Gap 11, BUN 5 L, Creatinine 0.45 L, Estim Creat Clear Calc 147.90,Est GFR (MDRD) Af Amer 216, Est GFR (MDRD) Non-Af 179, BUN/Creatinine Ratio 11.0, Glucose 115 H, Calcium 7.6 L 03/04/23 02:09: POC Glucose 47 L 03/04/23 03:15: WBC 5.7, RBC 3.92 L, Hgb 10.9 L, Hct 32.7 L, MCV 83.4, MCH 27.8,MCHC 33.3, RDW Std Deviation 37.9, RDW Coeff of Marilynn 12.5, Plt Count 256, MPV 7.9, Immature Gran % (Auto) 0.400, Neut % (Auto) 69.8, Lymph % (Auto) 20.6, [place]% (Auto) 8.3, Eos % (Auto) 0.5, Baso % (Auto) 0.4, Absolute Neuts (auto) 4.0, Absolute Lymphs (auto) 1.17, Nucleated RBC % 0, Sodium 139, Potassium 3.0 L, Chloride 109 H, Carbon Dioxide 21.0, Anion Gap 9, BUN 3 L, Creatinine 0.38 L, Estim Creat Clear Calc 175.14, Est GFR (MDRD) Af Amer 262, Est GFR (MDRD) Non-Af217, BUN/Creatinine Ratio 7.8 L, Glucose 99, Calcium 7.7 L 03/04/23 03:31: POC Glucose 96 03/04/23 06:15: POC Glucose 92 03/04/23 07:00: Sodium 136, Potassium 3.1 L, Chloride 107, Carbon Dioxide 21.0, Anion Gap 8, BUN 2 L, Creatinine 0.38 L, Estim Creat Clear Calc 214.07, Est GFR (MDRD) Af Amer 266, Est GFR (MDRD) Non-Af 220, BUN/Creatinine Ratio 5.3 L, Glucose 99, Calcium 7.9 L, Phosphorus 1.7 L, Magnesium 1.7 03/04/23 09:55: POC Glucose 97 03/04/23 12:00: Sodium 134 L, Potassium 3.7, Chloride 104, Carbon Dioxide 19.0 L, Anion Gap 11, BUN 2 L, Creatinine 0.38 L, Estim Creat Clear Calc 214.07, Est GFR (MDRD) Af Amer 269, Est GFR (MDRD) Non-Af 222, BUN/Creatinine Ratio 5.3 L, Glucose 176 H, Calcium 7.9 L 03/04/23 14:12: POC Glucose 180 H Physical Exam Const alert, oriented x3, no apparent distress, average body habitus, healthy appearing and well nourished Constitutional Narrative: Pleasant female, conversing normally, no acute distress. Does appear mildly fatigued. General Appearance: cooperative, comfortable, well kempt and well developed HEENT normocephalic, head/scalp atraumatic, hearing grossly normal bilaterally, nasal mucous membranes and turbinates normal and moist oral mucous membranes Eyes PERRL, EOMs intact bilaterally and conjunctivae normal Neck full ROM, no lymphadenopathy and supple Lymph Lymphatic: no lymphadenopathy noted Chest inspection of chest normal Resp normal respiratory effort, normal air movement, no use of accessory muscles and clear to auscultation bilaterally Cardio regular rate, regular rhythm, no murmurs and peripheral pulses 2+ throughout GI normal to inspection, nondistended, normoactive bowel sounds, soft to palpation and non-distended GI Narrative: Mild tenderness to palpation in epigastric region. Back/Spine normal ROM Extremity normal to inspection, full ROM and no pedal edema Skin no rashes or lesions noted Psych mental status grossly normal Assessment & Plan Assessment/Plan (1) DKA (diabetic ketoacidosis): PLAN: Plan Patient is a 22 female with history significant for insulin-dependent type 1 diabetes mellitus, asthma and anxiety/depression who presented to the [facility] ED on 03/03 with concern for being in DKA. 1. DKA, resolved; insulin-dependent type 1 diabetes Patient has had several episodes of DKA in the past, with the most recent episode being about 3 to 4 weeks ago. States she has been taking her insulin athome as prescribed. She reports having a GI type illness with some diarrhea andvomiting shortly before coming into the hospital this time, so this may have precipitated DKA. Patient had very mild DKA on admission. Bicarb was 17 and blood glucose was 246. Was not put on an insulin drip, rather was treated with her home medications. ?DKA has now resolved. Bicarb greater than 20 and patient is tolerating some p.o. intake. Primary barrier to improved p.o. intake is her esophagitis, treating as below. Okay for transfer to [facility] floor. We will continue maintenance IV fluids through tomorrow morning and reassess labs then. If p.o. intake improves, patient will be okay for discharge. Continue home regimen of glargine 20 units at night, Humalog 15 units 3 times daily AC (if patient is eating) with sliding scale. Encouraged outpatient follow-up with endocrinology as needed. 2. Esophagitis ?Likely secondary to recent episodes of vomiting. Will treat with Pepcid twice daily and Carafate as needed. 3. Hypokalemia, improved Likely secondary to GI losses via diarrhea and vomiting. Has had hypokalemia similar to this on previous admissions. K3.4 on admit, dropped to 2.6 with administration of insulin. Now improved to 3.7 after aggressive resuscitation. ?Recheck BMP tomorrow morning, replete as needed prior to discharge. 4. Hypophosphatemia ?Likely secondary to administration of insulin for DKA. Phosphorus 1.7 on admission. Will replete as needed. 5. Asthma ? Continue home inhalers. DVT prophylaxis: Ambulation CODE STATUS: Full code, verified Expected disposition: Home, tomorrow Total clinical time spent by myself addressing the patient's medical issues, reviewing all of the data, and collaborating with patient's care team: 35 minutes. Charges/Coding Visit Charges Inpatient E&M: 57046 Subs Hosp L2 03/04/23 1516 <Electronically signed by Diego Haas DO> Cosigner Signature (if applicable): CC: ~ Signed [facility] Work Phone: 1(674) 919-156808-14-2023 History and physical note Author Uziel Mahmood [facility] March 03, 2023 6:25pm Note Date/Time March 03, 2023 3: 28pm [facility] Medical Records Department [address] [facility] [place] [address] H&P Exam - Hospitalist 03/03/23 1523 MR#: [id number] Acct: [id number] Name: KALIE DESIR Rep #:[id number] : 2000 22 From: Uziel oreilly MD PCP: Minnie Hodge Status:ADM I N Location: ICU ICU02-1 HPI - General General Date of Admission: 03/03/23 HPI Narrative KALIE DESIR, is a 22 F who presents to the hospital with DKA. She was recently seen in the ER a few days ago with dehydration and elevated blood sugars but at that time she was not DKA. She was discharged home unfortunate she could not fill her antinausea prescriptions and she is continued to vomit over the weekend and become more dehydrated and is now in the ER with deep eye based on ketone and acetone level. Bicarb is at 17 with an anion gap of 18 and a normal renal function. Blood sugars are at 246. [facility] Medical History Anxiety and depression Asthma Cannabis hyperemesis syndrome concurrent with and due to cannabis abuse Diabetes type 1, controlled DKA, type 1 History of marijuana use Hypokalemia Hypophosphatemia Implanon in place Insulin pump titration Presence of insulin pump Home Medications albuterol sulfate 90 mcg/actuation aerosol inhaler (Ventolin HFA) 2 puff inhalation Q4H PRN SHORTNES OF BREATH/WHEEZING 02/05/19 [History Last Taken 03/02/23] Ketone Urine Test (acetone (urine) test) #50 ea 11/05/21 [Rx Last Taken Unknown] fluticasone propionate 50 mcg/actuation nasal spray,suspension 2 spray intranasal DAILY NASAL CONGESTION 11/21/22 [History Last Taken 02/12/23] blood-glucose sensor (Dexcom G6 Sensor device) #10 ea 11/23/22 [Rx Last Taken Unknown] blood-glucose transmitter (Dexcom G6 Transmitter device) #1 ea 11/23/22 [Rx Last Taken Unknown] insulin pump cart,automated,BT (Omnipod 5 G6 Pods (Gen 5) subcutaneous cartridge) #45 ea 11/23/22 [Rx Last Taken Unknown] insulin pump cartridge,automated dose,BT with controller subcutaneous (Omnipod 5G6 Intro Kit (Gen 5) subcutaneous cartridge with controller) #1 ea 11/23/22 [Rx Last Taken Unknown] pen needle, diabetic 32 gauge x 5/32 (BD Ultra-Fine Opal Pen Needle) #120 ea 11/23/22 [Rx Last Taken Unknown] hydroxyzine pamoate 25 mg capsule (Vistaril) 25 mg PO QHS ITCHING #30 caps 01/13/23 [Rx Last Taken 02/12/23] insulin aspart U-100 100 unit/mL (3 mL) subcutaneous pen (Novolog FlexPen U-100 Insulin aspart) 15 unit subcut TID 03/01/23 [History Last Taken 03/03/23] insulin glargine 100 unit/mL (3 mL) subcutaneous pen (Basaglar KwikPen U-100 Insulin) 20 unit subcut QHS 03/01/23 [History Last Taken 03/02/23] Allergy/AdvReac Type Severity Reaction Status Date / Time bee venom protein (honey bee) Allergy Severe Anaphylaxis Verified 03/03/23 11:56 [bee stings] Penicillins Allergy Unknown Verified 03/03/23 11:56 Sulfa (Sulfonamide Allergy Unknown Verified 03/03/23 11:56 Antibiotics) prednisone AdvReac Vomiting Verified 03/03/23 11:56 Family History Grandmother Diabetes Sister Asthma Brother Asthma Mother Heart disease Surgical History History of placement of ear tubes Social History household members: family Smoking Status: Never smoker second hand exposure: No alcohol intake: never substance use type: other details: Cannabis, last use ~ 1 month prior, ingested. ROS Constitutional Constitutional: Denies chills, fatigue, fever(s) or malaise Eyes Eyes: Denies blurry vision ENT HEENT: Denies headache(s) or nasal discharge Cardiovascular Cardiovascular: Denies chest pain, dyspnea on exertion or syncope Respiratory/Chest Respiratory/Chest: Denies cough, shortness of breath at rest or shortness of breath with exertion Gastrointestinal Gastrointestinal: Reports abdominal pain, nausea and vomiting; Denies constipation or diarrhea Genitourinary Genitourinary: Denies dysuria Neurologic Neurologic: Denies focal weakness, numbness or tremor(s) Psychiatric Psychiatric: Denies anxiety or depression Vital Signs Vital Signs Vital Signs: 03/03/23 11:50 03/03/23 11:56 03/03/23 13:22 Temperature 98.6 F 97.6 F L Temperature Source Oral Oral Pulse Rate 116 H 111 H 90 Respiratory Rate 18 18 22 H Respiratory Effort Respiratory Pattern Blood Pressure 144/94 H 147/86 H 147/86 H Blood Pressure Mean 110 106 106 Pulse Ox 100 100 98 Oxygen Delivery Method Room Air Room Air Room Air 03/03/23 13:22 Temperature Temperature Source Pulse Rate Respiratory Rate Respiratory Effort Normal Respiratory Pattern Normal Blood Pressure Blood Pressure Mean Pulse Ox Oxygen Delivery Method Weight Weight: 107 lb 2.314 oz Body Mass Index (BMI) 21.6 Physical Exam Narrative General: Alert, Oriented x3, Cooperative, No apparent distress HEENT: Atraumatic, PERRLA, EOMI, Normocephalic Oral: Dry mucosa Neck: Supple, No JVD Lungs: Clear to auscultation, Normal air movement, No rhonchi, No wheeze, No rales Cardiovascular: Tachycardic, Regular Rhythm, Normal S1, Normal S2, No murmurs Abdomen: Soft, mild tender, Non-Distended, No Hepato-splenomegaly Extremities: No edema, Capillary Refill Less than 3 Seconds Skin: No rashes, No breakdown Musculoskeletal: No Tenderness to Palpation of Joints or Extremities Neurological: Cranial nerves II-XII grossly intact, Motor Exam 5/5 strength throughout, Sensory exam intact to light touch and pain Psych/Mental Status: Normal Affect, Appropriate Results Lab / Micro Data 03/03/23 13:00 03/03/23 13:00 Labs: Laboratory Results - last 24 hr 03/03/23 12:00: POC Glucose 327 H 03/03/23 13:00: WBC 9.2, RBC 4.69, Hgb 13.0, Hct 39.4, MCV 84.0, MCH 27.7, MCHC 33.0, RDW Std Deviation 37.7, RDW Coeff of Marilynn 12.6, Plt Count 294, MPV 8.2, Immature Gran % (Auto) 0.500, Neut % (Auto) 88.7 H, Lymph % (Auto) 6.3 L, [place] %(Auto) 3.7, Eos % (Auto) 0.4, Baso % (Auto) 0.4, Absolute Neuts (auto) 8.1 H, Absolute Lymphs (auto) 0.58 L, Nucleated RBC % 0, Sodium 131 L, Potassium 3.2 L,Chloride 96 L, Carbon Dioxide 17.0 L, Anion Gap 18 H, BUN 7, Creatinine 0.62, Estim Creat Clear Calc 107.35, Est GFR (MDRD) Af Amer 151, Est GFR (MDRD) Non-Af125, BUN/Creatinine Ratio 11.3, Glucose 294 H, Calcium 8.9, Total Bilirubin 0.90, Direct Bilirubin 0.28, AST 11 L, ALT 12 L, Alkaline Phosphatase 91, Total Protein 7.0, Albumin 3.1 L, Globulin 3.9, Lipase 15, Serum , Qual NEGATIVE, Acetone Level MODERATE H 03/03/23 13:18: POC Glucose 279 H 03/03/23 13:29: Urine Color Yellow, Urine Clarity Clear, Urine pH 5.0, Ur Specific [place] 1.020, Urine Protein 15 H, Urine Glucose (UA) 1000 H, Urine Ketones 150 A*, Urine Occult Blood Negative, Urine Nitrite Negative, Urine Bilirubin Negative, Urine Urobilinogen Normal, Ur Leukocyte Esterase Negative, Urine RBC 0 SEEN, Urine WBC 0 SEEN, Ur Squamous Epith Cells 0 SEEN, Urine Bacteria 0 SEEN, Urine Mucus 0 SEEN 03/03/23 14:47: POC Glucose 246 H Assessment & Plan Assessment/Plan (1) DKA, type 1: QUALIFIERS: Diabetes mellitus complication detail: without coma Qualified Code(s): E10.10 - Type 1 diabetes mellitus with ketoacidosis without coma PLAN: Plan 1. DKA/DM1 ? Blood sugars are at 246 so we will hold off on doing an insulin drip and we will manage her with IV fluids and her home insulin ? We will obtain every 4 BMPs to closely monitor electrolytes and her anion gap ? We will make adjustments to her insulin and her fluids as necessary ? We will allow for transitional diet ? We will provide antinausea medications as well as Pepcid as she feels like shehas burning in her abdomen ? She does state that she has abdominal pain though upon entering her room she was sleeping so we will monitor ? CT scan from 03/02/2023 showed distal esophageal thickening consistent with esophagitis but no other abdominal abnormality will not repeat films DVT: Ambulation neck 76 minutes was spent on direct patient care, including documentation as well as chart review and collaboration with colleagues Charges/Coding Visit Charges Inpatient E&M: 57921 Init Hosp L3 03/03/23 1825 <Electronically signed by Uziel Mahmood MD> Cosigner Signature (if applicable): CC: Minnie Hodge; Dr. Uziel Mahmood MD~ Signed [facility] Work Phone: 1(522) 794-457808-14-2023 Discharge summary Author Kaylen Morin [facility] March 03, 2023 4:20pm Note Date/Time March 03, 2023 2: 36pm [facility] Medical Records Department [address] [place] [address] Emergency Department Summary 03/03/23 MR#: [id number] Acct: [id number] Name: KALIE DESIR Rep #:[id number] : 2000 22 From: Kaylen Morin MD PCP: Minnie Hodge Status:ADM I N Location: ICU ICU02-1 HPI History of Present Illness Chief Complaint: Hyperglycemia Informant: patient Narrative Narrative: Patient returns to the ER due to concern for possible DKA. Patient was seen in the ER couple days ago with upper abdominal pain, nausea, and vomiting. She wasdiagnosed with esophagitis. She states medications were sent to the pharmacy for her, but the pharmacy was closed yesterday and she was not able to pick themup today. She saw her PCP this morning who was concerned that she is still not tolerating p.o. and sent her back to the emergency room. [facility] Medical History (Updated 03/03/23 @ 14:[address] Kaylen Morin MD) Anxiety and depression Asthma Cannabis hyperemesis syndrome concurrent with and due to cannabis abuse Diabetes type 1, controlled DKA, type 1 History of marijuana use Hypokalemia Hypophosphatemia Implanon in place Insulin pump titration Presence of insulin pump Home Medications albuterol sulfate 90 mcg/actuation aerosol inhaler (Ventolin HFA) 2 puff inhalation Q4H PRN SHORTNES OF BREATH/WHEEZING 08/25/18 [History Last Taken 03/02/23] Ketone Urine Test (acetone (urine) test) #50 ea 11/05/21 [Rx Last Taken Unknown] fluticasone propionate 50 mcg/actuation nasal spray,suspension 2 spray intranasal DAILY NASAL CONGESTION 11/21/22 [History Last Taken 02/12/23] blood-glucose sensor (Dexcom G6 Sensor device) #10 ea 11/23/22 [Rx Last Taken Unknown] blood-glucose transmitter (Dexcom G6 Transmitter device) #1 ea 11/23/22 [Rx Last Taken Unknown] insulin pump cart,automated,BT (Omnipod 5 G6 Pods (Gen 5) subcutaneous cartridge) #45 ea 11/23/22 [Rx Last Taken Unknown] insulin pump cartridge,automated dose,BT with controller subcutaneous (Omnipod 5G6 Intro Kit (Gen 5) subcutaneous cartridge with controller) #1 ea 11/23/22 [Rx Last Taken Unknown] pen needle, diabetic 32 gauge x 5/32 (BD Ultra-Fine Opal Pen Needle) #120 ea 11/23/22 [Rx Last Taken Unknown] hydroxyzine pamoate 25 mg capsule (Vistaril) 25 mg PO QHS ITCHING #30 caps 01/13/23 [Rx Last Taken 02/12/23] insulin aspart U-100 100 unit/mL (3 mL) subcutaneous pen (Novolog FlexPen U-100 Insulin aspart) 15 unit subcut TID 03/01/23 [History Last Taken 03/03/23] insulin glargine 100 unit/mL (3 mL) subcutaneous pen (Basaglar KwikPen U-100 Insulin) 20 unit subcut QHS 03/01/23 [History Last Taken 03/02/23] Allergy/AdvReac Type Severity Reaction Status Date / Time bee venom protein (honey bee) Allergy Severe Anaphylaxis Verified 03/03/23 11:56 [bee stings] Penicillins Allergy Unknown Verified 03/03/23 11:56 Sulfa (Sulfonamide Allergy Unknown Verified 03/03/23 11:56 Antibiotics) prednisone AdvReac Vomiting Verified 03/03/23 11:56 Family History Grandmother Diabetes Sister Asthma Brother Asthma Mother Heart disease Surgical History History of placement of ear tubes Social History household members: family Smoking Status: Never smoker second hand exposure: No alcohol intake: never substance use type: other details: Cannabis, last use ~ 1 month prior, ingested. ROS ROS ED Constitutional Constitutional ED: Denies chills or fever(s) Eyes Eyes: Denies change in vision or discharge from eye(s) ENT ENT ED: Denies discharge from eye(s), rhinorrhea or sore throat Cardiovascular Cardiovascular: Denies chest pain or palpitations Respiratory/Chest Respiratory/Chest: Denies cough or dyspnea Gastrointestinal Gastrointestinal: Reports abdominal pain, diarrhea, nausea and vomiting Genitourinary Genitourinary ED: Denies dysuria Musculoskeletal Musculoskeletal: Reports myalgias; Denies back pain or extremity pain Integumentary Denies Abrasions or rash Neurologic Neurologic: Denies headache(s) or weakness Psychiatric Psychiatric: Denies anxiety or depression Allergic/Immunologic Allergic/Immunologic ED: Denies lip swelling or urticaria EXAM Physical Exam Const Vital Signs: 03/03/23 11:50 03/03/23 11:56 03/03/23 13:22 Temperature 98.6 F 97.6 F L Temperature Source Oral Oral Pulse Rate 116 H 111 H 90 Respiratory Rate 18 18 22 H Respiratory Effort Respiratory Pattern Blood Pressure 144/94 H 147/86 H 147/86 H Blood Pressure Mean 110 106 106 Pulse Ox 100 100 98 Oxygen Delivery Method Room Air Room Air Room Air 03/03/23 13:22 Temperature Temperature Source Pulse Rate Respiratory Rate Respiratory Effort Normal Respiratory Pattern Normal Blood Pressure Blood Pressure Mean Pulse Ox Oxygen Delivery Method Positive well nourished and well developed General Appearance ED: well developed HEENT Reports normocephalic and head/scalp atraumatic Eyes PERRL and EOMs intact bilaterally Neck supple Chest Wall inspection of chest normal and palpation of chest normal Resp normal respiratory effort and clear to auscultation bilaterally Cardio regular rhythm Rate: tachycardic GI GI Narrative: Abdomen soft with mild epigastric tenderness. No guarding or rebound. Palpation: soft Extremity normal to inspection Neuro oriented x3 and no sensory deficits noted Sensorium / Orientation: alert Motor Exam: strength 5/5 throughout Psych mental status grossly normal Skin no rashes or lesions noted MDM MDM MDM Narrative Medical decision making narrative: Patient given IV fluids, Protonix, Zofran. Labwork obtained to evaluate for leukocytosis, anemia, and electrolyte derangement. Urinalysis obtained to evaluate for infection/hematuria. History & Record Review Discussion w/independent historian: Patient Additional record(s) reviewed:: Prior inpatient record, Prior ED visit and Priorlabs Lab Data Attestation: I reviewed the patient's lab results. Labs: Laboratory Results - last 24 hr 03/03/23 03/03/23 03/03/23 12:00 13:00 13:18 WBC 9.2 RBC 4.69 Hgb 13.0 Hct 39.4 MCV 84.0 MCH 27.7 MCHC 33.0 RDW Std Deviation 37.7 RDW Coeff of Marilynn 12.6 Plt Count 294 MPV 8.2 Immature Gran % (Auto) 0.500 Neut % (Auto) 88.7 H Lymph % (Auto) 6.3 L [place] % (Auto) 3.7 Eos % (Auto) 0.4 Baso % (Auto) 0.4 Absolute Neuts (auto) 8.1 H Absolute Lymphs (auto) 0.58 L Nucleated RBC % 0 Sodium 131 L Potassium 3.2 L Chloride 96 L Carbon Dioxide 17.0 L Anion Gap 18 H BUN 7 Creatinine 0.62 Estim Creat Clear Calc 107.35 Est GFR (MDRD) Af Amer 151 Est GFR (MDRD) Non-Af 125 BUN/Creatinine Ratio 11.3 Glucose 294 H Calcium 8.9 Total Bilirubin 0.90 Direct Bilirubin 0.28 AST 11 L ALT 12 L Alkaline Phosphatase 91 Total Protein 7.0 Albumin 3.1 L Globulin 3.9 Lipase 15 Serum , Qual NEGATIVE Urine Color Urine Clarity Urine pH Ur Specific [place] Urine Protein Urine Glucose (UA) Urine Ketones Urine Occult Blood Urine Nitrite Urine Bilirubin Urine Urobilinogen Ur Leukocyte Esterase Urine RBC Urine WBC Ur Squamous Epith Cells Urine Bacteria Urine Mucus Acetone Level MODERATE H POC Glucose 327 H 279 H 03/03/23 03/03/23 13:29 14:47 WBC RBC Hgb Hct MCV MCH MCHC RDW Std Deviation RDW Coeff of Marilynn Plt Count MPV Immature Gran % (Auto) Neut % (Auto) Lymph % (Auto) [place] % (Auto) Eos % (Auto) Baso % (Auto) Absolute Neuts (auto) Absolute Lymphs (auto) Nucleated RBC % Sodium Potassium Chloride Carbon Dioxide Anion Gap BUN Creatinine Estim Creat Clear Calc Est GFR (MDRD) Af Amer Est GFR (MDRD) Non-Af BUN/Creatinine Ratio Glucose Calcium Total Bilirubin Direct Bilirubin AST ALT Alkaline Phosphatase Total Protein Albumin Globulin Lipase Serum , Qual Urine Color Yellow Urine Clarity Clear Urine pH 5.0 Ur Specific [place] 1.020 Urine Protein 15 H Urine Glucose (UA) 1000 H Urine Ketones 150 A* Urine Occult Blood Negative Urine Nitrite Negative Urine Bilirubin Negative Urine Urobilinogen Normal Ur Leukocyte Esterase Negative Urine RBC 0 SEEN Urine WBC 0 SEEN Ur Squamous Epith Cells 0 SEEN Urine Bacteria 0 SEEN Urine Mucus 0 SEEN Acetone Level POC Glucose 246 H Treatment and Re-Evaluation :: CBC reveals normal white count 9.2 with hemoglobin of 13. Differential does reveal 88% neutrophils. Chemistry studies reveal a glucose of 294 with a sodiumof 131 and a potassium of 3.2. Bicarb is low at 17. Anion gap is increased at 18. LFTs are unremarkable. test is negative. Serum acetone level ismoderate. Urinalysis reveals 150 ketones and 1000 glucose. No sign of acute infection. Repeat blood sugar will be obtained. She will require insulin drip given her serum acetone level and elevated anion gap. She may require D5 as her glucose is not horribly elevated at this time. Discussion with the hospitalist, he would like additional IV fluids. He will give her long-acting insulin upstairs. Discharge Plan Dx/Rx/DC Orders Clinical Impression: DKA (diabetic ketoacidosis), Esophagitis Disposition Disposition: Acute Care Hospital [facility] What to do if you have Problems For any increased pain, shortness of breath, bleeding, nausea or vomiting, chestpain, or any unexpected problems, contact your Primary Care Provider. Call [facility] ([phone]) or report to the closest Emergency Room. Call 911 if necessary. 03/03/23 1620 <Electronically signed by Kaylen Morin MD> Cosigner Signature (if applicable): CC: Minnie Hodge ~ Signed [facility] Work Phone: 1([phone]) 984-182808-14-2023 History of Present illness Narrative* Chasity Hodge PA-C - 03/03/2023 10:38 AM EDT Chief Complaint Patient presents with: ER F/U HPI Kalie Desir is a 22 year old female who presents here today for ER Follow Up.. Patient was in hospital on 02/15 due to DKA. Was discharged home on 02/17. Hasn't follow up with endoyet. She went back into ER on 03/01/23-03/02/23 [...] 2 Puffs as instructed every 4 hours asneeded. etonogestrel (NEXPLANON) subdermal implant 68 mg ONCE potassium chloride ER (K-DUR, KLOR-CON) 20 mEq tablet Take 20 mEq by mouth twice daily. Alcohol Swabs (ALCOHOL PREP PADS) padm Apply 1 application to affected area every 4 hours as needed(blood glucose check). NOVOLOG U-100 INSULIN ASPART 100 [...] 100 unit/mL (3 mL) Inject 45 Units subcutaneouslydaily at bedtime. Per Endo: Dr. Chow (Patient not taking: Reported on 12/31/2021 ) insulin aspart U-100 (NOVOLOG) 100 unit/mL (3 mL) Inject 30 Units subcutaneously three times daily before meals. Per Endo, Dr. Chow (Patient not taking: Reported on 12/26/2021 ) flash glucose sensor (FREESTYLE DANIELA 14 DAY SENSOR) kit apply 1 SENSOR TO THE BACK OF UPPER ARM. REMOVE AND REPLACE EVERY 14 DAYS. USE WITH DEVICE TO MONITOR BLOOD SUGAR four times a day (Patient not taking: Reported on 10/16/2022) etonogestrel (NEXPLANON) subdermal implant 68 mg 1 Each by SUBDERMAL route as directed. (Patient not taking: Reported on 07/02/2021 ) flash glucose scanning reader (FREESTYLE DANIELA 14 DAY READER) [facility] [place] For blood sugar checks 4 times aday (Patient not taking: Reported on 10/16/2022) Insulin [place]in[place], Disposable, (OPAL PEN NEEDLE) 32 gauge x 5/32 ndle [...] or having a seizure. (Patient not taking: Reportedon 12/26/2021 ) Inhalational Spacing Device (AEROCHAMBER MASK [...] squad was called and ER was notified. Chasity Hodge PA-C [facility] Consult note Author Suzi Benito [facility] February 17, 2023 10:28am Note Date/Time February 17, 2023 10:[address] [facility] Medical Records Department [address] [place] [address] Counseling Note - Pharmacy 02/17/23 1027 MR#: [id number] Acct: [id number] Name: KALIE DESIR Rep #:[id number] : 2000 22 From: Suzi Benito PCP: Dr. Erika Sen MD Status:ADM I N Y Location: [facility] [place] [id number] Pharm[place] Med Reconciliation Pharmacy Service has performed discharge medication reconciliation for this patient. The patient's discharge medication list was reviewed for discrepancies and discrepancies were resolved. Medications at Discharge Home Medications albuterol sulfate 90 mcg/actuation aerosol inhaler (Ventolin HFA) 2 puff inhalation Q4H PRN SHORTNES OF BREATH/WHEEZING 08/25/18 Ketone Urine Test (acetone (urine) test) #50 ea 11/05/21 fluticasone propionate 50 mcg/actuation nasal spray,suspension 2 spray intranasal DAILY NASAL CONGESTION 11/21/22 blood-glucose sensor (Dexcom G6 Sensor device) #10 ea 11/23/22 blood-glucose transmitter (Dexcom G6 Transmitter device) #1 ea 11/23/22 insulin glargine 100 unit/mL (3 mL) subcutaneous pen (Basaglar KwikPen U-100 Insulin) 15 unit (0.15 mL) subcut BID #15 mL 11/23/22 insulin pump cart,automated,BT (Omnipod 5 G6 Pods (Gen 5) subcutaneous cartridge) #45 ea 11/23/22 insulin pump cartridge,automated dose,BT with controller subcutaneous (Omnipod 5G6 Intro Kit (Gen 5) subcutaneous cartridge with controller) #1 ea 11/23/22 pen needle, diabetic 32 gauge x 5/32 (BD Ultra-Fine Opal Pen Needle) #120 ea 11/23/22 hydroxyzine pamoate 25 mg capsule (Vistaril) 25 mg PO QHS ITCHING #30 caps 01/13/23 insulin aspart U-100 100 unit/mL (3 mL) subcutaneous pen (Novolog FlexPen U-100 Insulin aspart) 20 unit (0.2 mL) subcut TID #18 mL 01/13/23 02/17/23 1028 <Electronically signed by Suzi Benito> Date _ Suzi Benito Cosigner Signature (if applicable): Date CC: ~ Signed [facility] Work Phone: 1(947) 267-151007-31-2023 Discharge summary Author Nathan Pineda [facility] February 17, 2023 9:51am Note Date/Time February 17, 2023 9:46 am [facility] Medical Records Department [address] [place] [address] Instructions for Home/Discharge Instructions 02/17/23 0945 MR#: [id number] Acct: [id number] Name: KALIE DESIR Rep #:[id number] : 2000 22 From: Nathan Pineda DO PCP: Dr. Erika Sen MD Status:ADM I N Discharge Instructions Diet Discharge Diet: - (Resume previous diet) Activity Discharge Activity: Return to Normal Activity Weight Bearing Status: Full weight bearing Follow Up Care Test Results: Test results from this visit will be discussed in further detail at your follow- up appointment, if applicable. Discharge Plan Admission Admit Date/Time: 02/15/23 16:58 Primary Reason for Your Visit: DKA Attending Provider: Nathan Pineda Primary Care Provider: Erika Sen Consulting Providers: Jackeline Akhtar Discharge Orders/Prescriptions Prescriptions: Continued insulin aspart U-100 [Novolog FlexPen U-100 Insulin] 100 unit/mL (3 mL) insulin pen 20 unit subcut TID Qty: 18 2RF hydroxyzine pamoate [Vistaril] 25 mg capsule 25 mg PO QHS Qty: 30 6RF albuterol sulfate [Ventolin HFA] 18 GM HFA aerosol inhaler 2 puff inhalation Q4H PRN (Reason: SHORTNES OF BREATH/WHEEZING) fluticasone propionate 50 mcg/actuation spray,suspension 2 spray INTRANASAL DAILY (DME) Dexcom G6 Sensor Device See Rx Instructions .Route Qty: 10 5RF Rx Instructions: As directed (DME) Dexcom G6 Transmitter Device See Rx Instructions .Route Qty: 1 3RF Rx Instructions: As directed (DME) pen needle, diabetic [BD Ultra-Fine Opal Pen Needle] 32 gauge x 5/32 needle See Rx Instructions .ROUTE .MEDSUPPLY Qty: 120 5RF Rx Instructions: 4 times daily (DME) Omnipod 5 G6 Pods (Gen 5) Cartridge See Rx Instructions .Route Qty: 45 1RF Rx Instructions: change every 48-72 hours (DME) Omnipod 5 G6 Intro Kit (Gen 5) Cartridge See Rx Instructions .Route Qty: 1 0RF Rx Instructions: As directed insulin glargine [Basaglar KwikPen U-100 Insulin] 100 unit/mL (3 mL) insulin pen 15 unit subcut BID Qty: 15 0RF (DME) Ketone Urine Test Strip See Rx Instructions .ROUTE .MEDSUPPLY Qty: 50 1RF Rx Instructions: once/day Discontinued insulin aspart U-100 100 unit/mL solution 100 unit continuous subcutaneous infusion .continuous Qty: 90 1RF Referrals / Follow Up: Erika Sen MD [Primary Care Provider] - (Get your potassium rechecked) Pj Chow MD [Med Staff - Courtesy Staff] - See Referral Note (As scheduled) Disposition Disposition (needs filled in before D/C Order can be placed): Home, Self Care 02/17/23 0951<Electronically signed by Nathan Pineda DO>Nathan Pineda DO CC: Dr. Erika Sen MD; Dr. Jackeline Akhtar MD ~ Signed [facility] Work Phone: 1(186) 763-631607-30-2023 Progress note Author Jackeline Akhtar [facility] February 16, 2023 8:41am Note Date/Time February 16, 2023 7:35 am [facility] Medical Records Department [address] [place] [id number] Progress Note - Hospitalist 02/16/23 0734 MR#: [id number] Acct: [id number] Name: KALIE DESIR Rep #:[id number] : 2000 22 From: Jackeline Akhtar MD PCP: Dr. Erika Sen MD Status:ADM I N Location: ICU CVICU20 3-1 Reason for Visit Reason for Visit: Diagnoses Type 1 diabetes mellitus with ketoacidosis without coma (02/15/23) Subjective Subjective Patient is a 22-year-old lady with history of diabetes mellitus type 1 presentedwith intractable nausea vomiting diagnosed with DKA Objective Data Objective Data Vital Signs: Vital Signs Temp Pulse Resp BP Pulse Ox O2 Del Method 98 F 101 H 28 H 135/77 H 100 Room Air 02/16/23 06:00 02/16/23 06:00 02/16/23 06:00 02/16/23 06:00 02/16/23 06:00 02/16/23 06:00 Oxygen Delivery Method Room Air Weight: 59.602 kg Body Mass Index (BMI) 26.4 Intake & Output: Intake and Output for Last 24 Hours 02/14/23 02/15/23 02/16/23 23:59 23:59 23:59 Intake Total 3462.74 / 3462.74 2578.94 / 2578.94 Output Total 500 / 500 870 / 870 Balance 2962.74 / 2962.74 1708.94 / 1708.94 Lab / Micro Data 02/16/23 03:50 02/16/23 03:50 Labs: Laboratory Results - last 24 hr 02/15/23 14:21: POC Glucose > 500 H* 02/15/23 16:05: WBC 23.4 H, RBC 5.61 H, Hgb 16.1 H, Hct 44.8, MCV 79.9 L, MCH 28.7, MCHC 35.9, RDW Std Deviation 35.8, RDW Coeff of Marilynn 12.7, Plt Count 548 H,MPV 8.8, Immature Gran % (Auto) 0.900, Neut % (Auto) 89.7 H, Lymph % (Auto) 4.2 L, [place] % (Auto) 4.9, Eos % (Auto) 0.0, Baso % (Auto) 0.3, Absolute Neuts (auto)21.0 H, Absolute Lymphs (auto) 0.98, Nucleated RBC % 0, Differential Comment SCANNED, Sodium 127 L, Potassium 2.8 L, Chloride 86 L, Carbon Dioxide 12.0 L, Anion Gap 29 H, BUN 55 H, Creatinine 1.49 H, Estim Creat Clear Calc 54.87, Est GFR (MDRD) Af Amer 55 L, Est GFR (MDRD) Non-Af 45 L, BUN/Creatinine Ratio 36.9 H, Glucose 443 H, Lactic Acid 1.5, Calcium 8.6, Total Bilirubin 1.10 H, AST 13 L,ALT 17, Alkaline Phosphatase 151 H, Total Protein 7.9, Albumin 3.9, Globulin 4.0, Albumin/Globulin Ratio 1.0, Lipase < 10 L, Serum , Qual NEGATIVE, Acetone Level LARGE H 02/15/23 16:36: POC Glucose 438 H 02/15/23 17:20: Urine Color Yellow, Urine Clarity Clear, Urine pH 5.0, Ur Specific [place] 1.025, Urine Protein 30 H, Urine Glucose (UA) 1000 H, Urine Ketones 150 A*, Urine Occult Blood 50 H, Urine Nitrite Negative, Urine BilirubinNegative, Urine Urobilinogen Normal, Ur Leukocyte Esterase Negative, Urine RBC 0SEEN, Urine WBC 0 SEEN, Ur Squamous Epith Cells 0-5 SEEN, Urine Bacteria 0 SEEN,Urine Mucus 0 SEEN 02/15/23 17:31: POC Glucose 349 H 02/15/23 18:25: POC Glucose 276 H 02/15/23 19:32: POC Glucose 212 H 02/15/23 20:19: Sodium 135 L, Potassium 3.6, Chloride 105, Carbon Dioxide 15.0 L, Anion Gap 15, BUN 38 H, Creatinine 1.07 H, Estim Creat Clear Calc 74.42, Est GFR (MDRD) Af Amer 80, Est GFR (MDRD) Non-Af 67, BUN/Creatinine Ratio 35.5 H, Glucose 203 H, Calcium 7.3 L 02/15/23 20:27: POC Glucose 213 H 02/15/23 21:26: POC Glucose 218 H 02/15/23 22:26: POC Glucose 232 H 02/15/23 23:28: POC Glucose 247 H 02/15/23 23:57: Sodium 135 L, Potassium 3.3 L, Chloride 105, Carbon Dioxide 20.0L, Anion Gap 10, BUN 31 H, Creatinine 1.17 H, Estim Creat Clear Calc 68.06, Est GFR (MDRD) Af Amer 73, Est GFR (MDRD) Non-Af 60, BUN/Creatinine Ratio 26.5 H, Glucose 260 H, Calcium 7.5 L 02/16/23 00:23: POC Glucose 240 H 02/16/23 01:15: POC Glucose 220 H 02/16/23 02:34: POC Glucose 179 H 02/16/23 03:42: POC Glucose 181 H 02/16/23 03:50: WBC 11.5 H, RBC 4.39, Hgb 12.7, Hct 34.9 L, MCV 79.5 L, MCH 28.9, MCHC 36.4 H, RDW Std Deviation 36.5, RDW Coeff of Marilynn 13.0, Plt Count 322,MPV 8.6, Immature Gran % (Auto) 0.300, Neut % (Auto) 87.9 H, Lymph % (Auto) 6.5 L, [place] % (Auto) 5.1, Eos % (Auto) 0.0, Baso % (Auto) 0.2, Absolute Neuts (auto)10.1 H, Absolute Lymphs (auto) 0.74 L, Nucleated RBC % 0, Sodium Cancelled 02/16/23 03:50: Sodium 138, Potassium Cancelled 02/16/23 03:50: Potassium 3.0 L, Chloride Cancelled 02/16/23 03:50: Chloride 108 H, Carbon Dioxide Cancelled 02/16/23 03:50: Carbon Dioxide 22.0, Anion Gap Cancelled 02/16/23 03:50: Anion Gap 8, BUN Cancelled 02/16/23 03:50: BUN 23 H, Creatinine Cancelled 02/16/23 03:50: Creatinine 1.02, Estim Creat Clear Calc Cancelled 02/16/23 03:50: Estim Creat Clear Calc 78.07, Est GFR (MDRD) Af Amer Cancelled 02/16/23 03:50: Est GFR (MDRD) Af Amer 85, Est GFR (MDRD) Non-Af Cancelled 02/16/23 03:50: Est GFR (MDRD) Non-Af 70, BUN/Creatinine Ratio Cancelled 02/16/23 03:50: BUN/Creatinine Ratio 22.5 H, Glucose Cancelled 02/16/23 03:50: Glucose 186 H, Calcium Cancelled 02/16/23 03:50: Calcium 7.7 L, Phosphorus 0.7 L*, Magnesium 2.0 02/16/23 04:38: POC Glucose 160 H 02/16/23 05:31: POC Glucose 177 H 02/16/23 06:30: POC Glucose 127 H Radiography Diagnostic Testing: Radiology Impression Chest X-Ray 02/15/23 16:00 IMPRESSION: New left IJ catheter in the SVC. No pneumothorax. Electronically Signed: Arjun Moreland MD at 16:46 EDT Reading Location ID and State: [facility] / [place] , Service support , Physical Exam Narrative GENERAL: Cooperative HEENT: Atraumatic; dry oral mucosa EYES; Anicteric, Normal Conjunctiva NECK; supple, normal thyroid, RESPIRATORY: Diminished to auscultation CARDIOVASCULAR: Regular S1 S2, GI: soft, normoactive bowel sounds, : No Renal angle tenderness; EXTREMITIES: No edema, no clubbing, MUSCULOSKELETAL: no muscle wasting NEURO: Awake; no lateralizing signs. SKIN: No Rash PSYCH; Flat affect Assessment & Plan Assessment/Plan (1) DKA, type 1: QUALIFIERS: Diabetes mellitus complication detail: without coma Qualified Code(s): E10.10 - Type 1 diabetes mellitus with ketoacidosis without coma PLAN: Plan Patient is a 22-year-old lady with history of diabetes mellitus type 1 presentedwith intractable nausea vomiting diagnosed with DKA admitted to the intensive care unit 1. Diabetic ketoacidosis ? Patient has been admitted to the intensive care unit management IV fluids, systemic insulin, serial monitoring of electrolytes and correction of electrolyte abnormalities. Patient progressed being monitored with every 4 BMP -02/16/2023; DKA resolved. Patient started on her scheduled long-acting insulin in addition to Accu-Cheks before meals and at bedtime with sliding scale coverage 2. Acute kidney injury ? Patient baseline creatinine 0.48 from BMP drawn on 11/07/2021. Creatinine on admission 1.49started on IV fluids serial monitoring of electrolytes ordered ? 02/16/2023 [place] resolved 3. Hypokalemia -Corrected per protocol ? 02/16/2023; hypokalemia persist additional potassium given 4. Hyponatremia ? Secondary to pseudohyponatremia from patient's hyperglycemia do expect rapid correction with treatment of underlying DKA -? 02/16/2023; sodium levels up to 138 5. Depression with anxiety ? Patient is on as needed hydroxyzine 6. Mild intermittent asthma ? Aerosol treatments as needed 7. Polysubstance abuse ? Include occasional use of marijuana, Adderall as well as Suboxone, Cessation encouraged 8. Suspected acute cystitis ? Patient started on Rocephin urine culture sent ? 02/16/2023; urinalysis was negative for acute cystitis antibiotics discontinued 9. DVT prophylaxis ? Did encourage early ambulation Time spent in the patient's overall evaluation,decision-making process, review of diagnostic data, adjustment of management, discussion with other providers, nursing nursing and ancillary staff involved in patient's care documentation, 50 Minutes Charges/Coding Visit Charges Inpatient E&M: 50909 Subs Hosp L3 02/16/23 0841 <Electronically signed by Jackeline Akhtar MD> Cosigner Signature (if applicable): CC: ~ Signed [facility] Work Phone: 1(244) 469-441807-30-2023 Discharge summary Author Juan Carlos Pay [facility] February 15, 2023 11:46pm Note Date/Time February 15, 2023 2:37 pm [facility] Medical Records Department [address] [place] [address] Emergency Department Summary 02/15/23 MR#: [id number] Acct: [id number] Name: KALIE DESIR Rep #:[id number] : 2000 22 From: Naveed MAN PCP: Dr. Erika Sen MD Status:ADM I N Location: ICU CVICU20 3-1 HPI <DONOVAN Billingsley - Last Filed: 02/15/23 17:13> History of Present Illness Chief Complaint: Hyperglycemia Narrative Narrative: Patient is a 22-year-old female with history of type 1 diabetes that she was diagnosed with at 9 years of age. Patient was seen here in November 2022 for the same issue. Patient states in the last 2 days she been having nausea and vomiting, has not been taking her medication as prescribed. Patient states that2 nights ago, she was working third shift, she talk with one of her friends and wanted one of her friends Adderall, the friend gave her a Suboxone 7 Adderall. Patient states has been having nausea and vomiting since not taking her insulin. Patient does not check her sugar in 3 days. Patient states she has abdominal pain, rapid breathing, consistent nausea and vomiting which is consistent with her high sugar. Patient was sugar was 527 on arrival here. PFSH <DONOVAN Billingsley - Last Filed: 02/15/23 17:13> [facility] Medical History Anxiety and depression Anxiety and depression Asthma Asthma Cannabis hyperemesis syndrome concurrent with and due to cannabis abuse Diabetes type 1, controlled DKA, type 1 History of marijuana use Hypokalemia Hypophosphatemia Implanon in place Insulin pump titration Presence of insulin pump Home Medications albuterol sulfate 90 mcg/actuation aerosol inhaler (Ventolin HFA) 2 puff inhalation Q4H PRN SHORTNES OF BREATH/WHEEZING 08/25/18 [History Last Taken 05/12/19] Ketone Urine Test (acetone (urine) test) #50 ea 11/05/21 [Rx Last Taken Unknown] insulin aspart U-100 100 unit/mL subcutaneous solution 100 unit continuous subcutaneous infusion .continuous #90 mL 09/26/22 [Rx Last Taken Unknown] fluticasone propionate 50 mcg/actuation nasal spray,suspension 2 spray intranasal DAILY NASAL CONGESTION 11/21/22 [History Last Taken 02/12/23] blood-glucose sensor (Dexcom G6 Sensor device) #10 ea 11/23/22 [Rx Last Taken Unknown] blood-glucose transmitter (Dexcom G6 Transmitter device) #1 ea 11/23/22 [Rx Last Taken Unknown] insulin glargine 100 unit/mL (3 mL) subcutaneous pen (Basaglar KwikPen U-100 Insulin) 15 unit (0.15 mL) subcut BID #15 mL 11/23/22 [Rx Last Taken Unknown] insulin pump cart,automated,BT (Omnipod 5 G6 Pods (Gen 5) subcutaneous cartridge) #45 ea 11/23/22 [Rx Last Taken Unknown] insulin pump cartridge,automated dose,BT with controller subcutaneous (Omnipod 5G6 Intro Kit (Gen 5) subcutaneous cartridge with controller) #1 ea 11/23/22 [Rx Last Taken Unknown] pen needle, diabetic 32 gauge x 5/32 (BD Ultra-Fine Opal Pen Needle) #120 ea 11/23/22 [Rx Last Taken Unknown] hydroxyzine pamoate 25 mg capsule (Vistaril) 25 mg PO QHS ITCHING #30 caps 01/13/23 [Rx Last Taken 02/12/23] insulin aspart U-100 100 unit/mL (3 mL) subcutaneous pen (Novolog FlexPen U-100 Insulin aspart) 20 unit (0.2 mL) subcut TID #18 mL 01/13/23 [Rx Last Taken Unknown] Allergy/AdvReac Type Severity Reaction Status Date / Time bee venom protein (honey bee) Allergy Severe Anaphylaxis Verified 02/15/23 14:16 [bee stings] Penicillins Allergy Unknown Verified 02/15/23 14:16 Sulfa (Sulfonamide Allergy Unknown Verified 02/15/23 14:16 Antibiotics) prednisone AdvReac Vomiting Verified 02/15/23 14:16 Family History Grandmother Diabetes Sister Asthma Brother Asthma Mother Heart disease Surgical History History of placement of ear tubes Social History household members: family Smoking Status: Never smoker second hand exposure: No alcohol intake: never substance use type: other details: Cannabis, last use ~ 1 month prior, ingested. ROS <DONOVAN Billingsley - Last Filed: 02/15/23 17:13> ROS ED ROS Narrative Constitutional: Negative for fever, weight loss, weakness. Positive for chills Eyes: Negative for vision loss, vision change, double vision ENT: Negative for any sore throat, ear pain, congestion Cardiovascular: Negative for any chest pain, tightness, palpitations Respiratory: Negative for any cough, sputum production, hemoptysis, dyspnea, dyspnea on exertion, orthopnea Gastrointestinal: Negative for any diarrhea, constipation, blood in stool, blood in vomit. Positive for nausea and vomiting, abdominal pain : Negative for any urinary frequency, dysuria, retention, blood in urine Muscle skeletal: Negative for any muscle joint pain, stiffness, arthralgias, neck pain, back pain. Positive for myalgias Neurological: Negative for any headache, syncope, numbness or tingling, dizziness Skin: Negative for any rashes, lumps, itching, abrasions, lacerations Psychiatric: Negative for any depression, anxiety, stress, suicidal ideation, homicidal ideation Hematologic: Negative for any easy bruising, excessive bruising, easy bleeding Allergies: Negative for any eczema, hives, rash EXAM <DONOVAN Billingsley - Last Filed: 02/15/23 17:13> Physical Exam Narrative Exam Narrative: Vital signs reviewed. Patient is tachycardic, rapid breathing. Upon entering the room, I do smell ketones. Blood sugar greater than 500 HEET: Head normocephalic atraumatic, TMs clear bilaterally. Posterior pharynx is clear, dry mucous membranes. Nares clear bilaterally. Neck: Supple with no lymphadenopathy or tenderness. No signs of meningismus, negative jolt sign. Cardiac: Tachycardic rate no murmurs gallops or rubs, equal peripheral pulses bilaterally. Respiratory: Lungs clear to auscultation bilaterally. No chest tenderness. Abdomen: Soft, nontender, nondistended. No abdominal bruit or pulsatile masses. No hepatosplenomegaly Extremities: No peripheral edema, no signs of gross trauma or deformity. Activefull range of motion of all extremities. Neuro: Cranial nerves II through XII intact, no focal neurological deficits. Skin: Clean dry and intact with no rash, purpura, petechiae, vesicles or pustules. Backs/flank: No CVA tenderness, no midline spinal tenderness, no deformity. Psych: Normal mood and affect. No SI, HI or acute psychosis. Const Vital Signs: 02/15/23 14:13 02/15/23 15:00 02/15/23 15:03 Temperature 98 F Temperature Source Temporal Pulse Rate 135 H Respiratory Rate 30 H Respiratory Effort Normal Non-Labored Respiratory Pattern Normal Blood Pressure 80/51 L 103/81 H Blood Pressure Mean 60 88 Pulse Ox 99 Oxygen Delivery Method Room Air 02/15/23 16:00 Temperature Temperature Source Pulse Rate 126 H Respiratory Rate 28 H Respiratory Effort Respiratory Pattern Blood Pressure 100/69 Blood Pressure Mean 79 Pulse Ox 99 Oxygen Delivery Method Room Air <Dr. Juan Carlos Mcgregor, DO - Last Filed: 02/15/23 23:46> Physical Exam Const Vital Signs: 02/15/23 14:13 02/15/23 15:00 02/15/23 15:03 Temperature 98 F Temperature Source Temporal Pulse Rate 135 H Respiratory Rate 30 H Respiratory Effort Normal Non-Labored Respiratory Pattern Normal Blood Pressure 80/51 L 103/81 H Blood Pressure Mean 60 88 Pulse Ox 99 Oxygen Delivery Method Room Air 02/15/23 16:00 Temperature Temperature Source Pulse Rate 126 H Respiratory Rate 28 H Respiratory Effort Respiratory Pattern Blood Pressure 100/69 Blood Pressure Mean 79 Pulse Ox 99 Oxygen Delivery Method Room Air [facility] <Naveed VasquezDONOVAN - Last Filed: 02/15/23 17:13> [facility] Lab Data Labs: Laboratory Results - last 24 hr 02/15/23 02/15/23 02/15/23 14:21 16:05 16:36 WBC 23.4 H RBC 5.61 H Hgb 16.1 H Hct 44.8 MCV 79.9 L MCH 28.7 MCHC 35.9 RDW Std Deviation 35.8 RDW Coeff of Marilynn 12.7 Plt Count 548 H MPV 8.8 Immature Gran % (Auto) 0.900 Neut % (Auto) 89.7 H Lymph % (Auto) 4.2 L [place] % (Auto) 4.9 Eos % (Auto) 0.0 Baso % (Auto) 0.3 Absolute Neuts (auto) 21.0 H Absolute Lymphs (auto) 0.98 Nucleated RBC % 0 Differential Comment SCANNED Sodium 127 L Potassium 2.8 L Chloride 86 L Carbon Dioxide 12.0 L Anion Gap 29 H BUN 55 H Creatinine 1.49 H Estim Creat Clear Calc 54.87 Est GFR (MDRD) Af Amer 55 L Est GFR (MDRD) Non-Af 45 L BUN/Creatinine Ratio 36.9 H Glucose 443 H Lactic Acid 1.5 Calcium 8.6 Total Bilirubin 1.10 H AST 13 L ALT 17 Alkaline Phosphatase 151 H Total Protein 7.9 Albumin 3.9 Globulin 4.0 Albumin/Globulin Ratio 1.0 Lipase < 10 L Serum , Qual NEGATIVE Acetone Level LARGE H POC Glucose > 500 H* 438 H Radiography Diagnostic Testing: Clinical Impression(s) from Imaging Studies Chest X-Ray 02/15/23 16:00 IMPRESSION: New left IJ catheter in the SVC. No pneumothorax. Electronically Signed: Arjun Moreland MD at 16:46 EDT , EKG Sinus tachycardia: Attestation: I personally reviewed and interpreted this EKG as follows: Interpretation: Sinus Tachycardia Comments: Sinus tachycardia, rate 132 bpm NV 122 ms, QRS duration 82 ms, no acute ST elevation, no acute infarct noted. Treatment and Re-Evaluation :: Patient does appear ill appearing, patient's vital signs show hypotension, tachycardia. Patient is here for concern of DKA. Patient's physical examination is consistent with DKA with positive ketones that I can smell, consistent retching. Patient will be given a full DKA work-up including 2 L of fluid, Zofran. Lactic acid, acetone will be drawn. Patient does look similar from when I saw her in November for the similar complaint. Staff had a difficult time obtaining IV access for this patient. ER attending had to put in a central line. Patient was given 2 L of normal saline. Labs were drawn, patient CBC showed a leukocytosis white blood count 23.4, patient's chemistries show sodium 127 however corrected is around 132. Patient potassium is low at 2.8. Creatinine is 1.49, 1 month ago, she was 0.61. Blood sugar was 443, patient had large acetone. Patient was given 1 more liter of normal salinewhich are equal to 3 L. She was given 40 mill colons IV potassium. Insulin drip was started. Patient was then given Compazine, patient continued to have nausea and vomiting. Chest x-ray showed a new left IJ catheter in the SVC, no pneumothorax. At this time, the patient will be admitted to the hospital. Possible ICU admission. Hospital spoke to the attending. Patient's vital signsimproving. Patient is blood pressure is normalizing, patient's heart rate is decreasing. Critical care time will be 45 minutes for this patient secondary to obtaining central line, constant indication, constant reevaluation. <Dr. Juan Carlos Mcgregor, DO - Last Filed: 02/15/23 23:46> [facility] Lab Data Attestation: I reviewed the patient's lab results. Labs: Laboratory Results - last 24 hr 02/15/23 02/15/23 02/15/23 14:21 16:05 16:36 WBC 23.4 H RBC 5.61 H Hgb 16.1 H Hct 44.8 MCV 79.9 L MCH 28.7 MCHC 35.9 RDW Std Deviation 35.8 RDW Coeff of Marilynn 12.7 Plt Count 548 H MPV 8.8 Immature Gran % (Auto) 0.900 Neut % (Auto) 89.7 H Lymph % (Auto) 4.2 L [place] % (Auto) 4.9 Eos % (Auto) 0.0 Baso % (Auto) 0.3 Absolute Neuts (auto) 21.0 H Absolute Lymphs (auto) 0.98 Nucleated RBC % 0 Differential Comment SCANNED Sodium 127 L Potassium 2.8 L Chloride 86 L Carbon Dioxide 12.0 L Anion Gap 29 H BUN 55 H Creatinine 1.49 H Estim Creat Clear Calc 54.87 Est GFR (MDRD) Af Amer 55 L Est GFR (MDRD) Non-Af 45 L BUN/Creatinine Ratio 36.9 H Glucose 443 H Lactic Acid 1.5 Calcium 8.6 Total Bilirubin 1.10 H AST 13 L ALT 17 Alkaline Phosphatase 151 H Total Protein 7.9 Albumin 3.9 Globulin 4.0 Albumin/Globulin Ratio 1.0 Lipase < 10 L Serum , Qual NEGATIVE Acetone Level LARGE H POC Glucose > 500 H* 438 H Radiography Diagnostic Testing: Clinical Impression(s) from Imaging Studies Chest X-Ray 02/15/23 16:00 IMPRESSION: New left IJ catheter in the SVC. No pneumothorax. Electronically Signed: Arjun Moreland MD at 16:46 EDT , Treatment and Re-Evaluation :: Patient does appear ill appearing, patient's vital signs show hypotension, tachycardia. Patient is here for concern of DKA. Patient's physical examination is consistent with DKA with positive ketones that I can smell, consistent retching. Patient will be given a full DKA work-up including 2 L of fluid, Zofran. Lactic acid, acetone will be drawn. Patient does look similar from when I saw her in November for the similar complaint. Staff had a difficult time obtaining IV access for this patient. ER attending had to put in a central line. Patient was given 2 L of normal saline. Labs were drawn, patient CBC showed a leukocytosis white blood count 23.4, patient's chemistries show sodium 127 however corrected is around 132. Patient potassium is low at 2.8. Creatinine is 1.49, 1 month ago, she was 0.61. Blood sugar was 443, patient had large acetone. Patient was given 1 more liter of normal salinewhich are equal to 3 L. She was given 40 mill colons IV potassium. Insulin drip was started. Patient was then given Compazine, patient continued to have nausea and vomiting. Chest x-ray showed a new left IJ catheter in the SVC, no pneumothorax. At this time, the patient will be admitted to the hospital. ICU admission. Hospital spoke to the attending. Patient's vital signs improving. Patient is blood pressure is normalizing, patient's heart rate is decreasing. Critical care time will be 45 minutes for this patient secondary to obtaining central line, constant indication, constant reevaluation. Critical care time 45 minutes exclusive from separate billable procedures that were performed. The following was considered in the determination of critical care but not limited to the level of medical decision making, intensive cardiac and/or respiratory monitoring, frequent vital sign monitoring, evaluation of laboratory studies, evaluation of radiographic studies, oxygen monitoring, and constant monitoring and speaking to family at bedside I, Dr Mcgregor, have reviewed the above progress note and course of action in the ER;agree with the above. I have personally seen and evaluated this patient, gone over history and physical, and discussed disposition and treatment plan with thepatient. Procedures <Dr. Juan Carlos Mcgregor, DO - Last Filed: 02/15/23 23:46> Other Procedures Procedure(s): Multiple attempts were done by nursing staff trying to establish an IV on this patient, over 45 minutes has been spent. Ultrasound attempts havebeen spent, EJ attempts have been done by nursing staff. Patient did have a 24-gauge IV placed of the right foot. He was working, IV fluids are going slow, patient needed central venous access for hydration and improvement of DKA that patient is most likely in. Patient agrees, risk and benefits were discussed, patient signed consent form Procedure note. Left internal jugular CVC placement. Risk and benefits were discussed before procedure, consent form was signed. procedure was done by . patient was cleaned, prepped, draped in normal sterile fashion. 4 cc of1% lidocaine were used for superficial anesthetic effect. Seldinger technique was used. using the Cook needle, venous colored, nonpulsatile blood was accessed. guidewire was intact at all times and was removed. All 3 ports had good blood return, and were flushed easily. CVC was secured with sutures and Tegaderm. Patient tolerated procedure well without difficulty. No complications occurred. Chest x-ray confirmed placement. Patient's central line was placed at 16 cm, sitting above the IJ nor an x-ray. No pneumothorax, no complications occurred during the procedure. Minimal bleeding, less than 3 cc. <DONOVAN Billingsley - Last Filed: 02/15/23 17:13> Critical Care Time Critical Care Time: Yes Critical care time (excluding procedures): 30-74 minutes, Discussing w/Patient &/or Family/Practice Specialist and Performing Direct Patient Care at Bedside Discharge Plan Dx/Rx/DC Orders Clinical Impression: Acute kidney injury, Acute dehydration, Acute nausea with nonbilious vomiting, DKA, type 1, Acute hypokalemia Disposition Disposition: [facility] Discharge Date/Time: 02/15/23 18:20 What to do if you have Problems For any increased pain, shortness of breath, bleeding, nausea or vomiting, chestpain, or any unexpected problems, contact your Primary Care Provider. Call [facility] ([phone]) or report to the closest Emergency Room. Call 911 if necessary. 02/15/23 1713 <Electronically signed by Naveed MAN> Cosigner Signature (if applicable): 02/15/23 2346 <Electronically signed by Juan Carlos Mcgregor DO> CC: Dr. Erika Sen MD ~ Signed [facility] Work Phone: 1(784) 495-543207-29-2023 History and physical note Author [facility] February 15, 2023 5:24pm Note Date/Time February 15, 2023 4:58 pm [facility] Medical Records Department [address] [place] [id number] H&P Exam - Hospitalist 02/15/23 1658 MR#: [id number] Acct: [id number] Name: KALIE DESIR Rep #:[id number] : 2000 22 From: Jackeline Akhtar MD PCP: Dr. Erika Sen MD Status:REG E R Location: ED HPI - General General Date of Admission: 02/15/23 Date of Service: 02/15/23 Chief Complaint: Intractable nausea vomiting HPI Narrative KALIE DESIR, is a 22 F with past medical history second for diabetes mellitus type 1 on insulin who presented to the emergency department with intractable nausea vomiting. Patient symptoms started a day prior to coming in. She had apparently used Adderall and Suboxone given to her by her friend. In addition to the intractable nausea vomiting patient did complain of dysuria as well as frequency. An assessment of diabetic ketoacidosis was made in the emergency department. Patient could not produce any urine in the ED. Admitted to intensive care unit for further manage [facility] Medical History Anxiety and depression Anxiety and depression Asthma Asthma Cannabis hyperemesis syndrome concurrent with and due to cannabis abuse Diabetes type 1, controlled DKA, type 1 History of marijuana use Hypokalemia Hypophosphatemia Implanon in place Insulin pump titration Presence of insulin pump Home Medications albuterol sulfate 90 mcg/actuation aerosol inhaler (Ventolin HFA) 2 puff inhalation Q4H PRN SHORTNES OF BREATH/WHEEZING 08/25/18 [History Last Taken 05/12/19] Ketone Urine Test (acetone (urine) test) #50 ea 11/05/21 [Rx Last Taken Unknown] insulin aspart U-100 100 unit/mL subcutaneous solution 100 unit continuous subcutaneous infusion .continuous #90 mL 09/26/22 [Rx Last Taken Unknown] fluticasone propionate 50 mcg/actuation nasal spray,suspension 2 spray intranasal DAILY NASAL CONGESTION 11/21/22 [History Last Taken 02/12/23] blood-glucose sensor (Dexcom G6 Sensor device) #10 ea 11/23/22 [Rx Last Taken Unknown] blood-glucose transmitter (Dexcom G6 Transmitter device) #1 ea 11/23/22 [Rx Last Taken Unknown] insulin glargine 100 unit/mL (3 mL) subcutaneous pen (Basaglar KwikPen U-100 Insulin) 15 unit (0.15 mL) subcut BID #15 mL 11/23/22 [Rx Last Taken Unknown] insulin pump cart,automated,BT (Omnipod 5 G6 Pods (Gen 5) subcutaneous cartridge) #45 ea 11/23/22 [Rx Last Taken Unknown] insulin pump cartridge,automated dose,BT with controller subcutaneous (Omnipod 5G6 Intro Kit (Gen 5) subcutaneous cartridge with controller) #1 ea 11/23/22 [Rx Last Taken Unknown] pen needle, diabetic 32 gauge x 5/32 (BD Ultra-Fine Opal Pen Needle) #120 ea 11/23/22 [Rx Last Taken Unknown] hydroxyzine pamoate 25 mg capsule (Vistaril) 25 mg PO QHS ITCHING #30 caps 01/13/23 [Rx Last Taken 02/12/23] insulin aspart U-100 100 unit/mL (3 mL) subcutaneous pen (Novolog FlexPen U-100 Insulin aspart) 20 unit (0.2 mL) subcut TID #18 mL 01/13/23 [Rx Last Taken Unknown] Allergy/AdvReac Type Severity Reaction Status Date / Time bee venom protein (honey bee) Allergy Severe Anaphylaxis Verified 02/15/23 14:16 [bee stings] Penicillins Allergy Unknown Verified 02/15/23 14:16 Sulfa (Sulfonamide Allergy Unknown Verified 02/15/23 14:16 Antibiotics) prednisone AdvReac Vomiting Verified 02/15/23 14:16 Family History Grandmother Diabetes Sister Asthma Brother Asthma Mother Heart disease Surgical History History of placement of ear tubes Social History household members: family Smoking Status: Never smoker second hand exposure: No alcohol intake: never substance use type: other details: Cannabis, last use ~ 1 month prior, ingested. ROS ROS Narrative GENERAL: fever, chills, HEENT: denies headache, sinus congestion, RESPIRATORY: denies cough, sputum production, CARDIAC: denies chest pain, palpitations, GASTROINTESTINAL: nausea, vomiting, GENITOURINARY: dysuria, urgency, frequency, EXTREMITY: denies swelling MUSCULOSKELETAL: denies current joint pain or tenderness NEUROLOGIC: denies focal numbness, weakness, tingling HEMATOLOGIC: denies easy bruising and/or hemorrhage INTEGUMENT: denies rashes PSYCHIATRIC: denies suicidal or homicidal ideation Vital Signs Vital Signs Vital Signs: 02/15/23 14:13 02/15/23 15:00 02/15/23 15:03 Temperature 98 F Temperature Source Temporal Pulse Rate 135 H Respiratory Rate 30 H Respiratory Effort Normal Non-Labored Respiratory Pattern Normal Blood Pressure 80/51 L 103/81 H Blood Pressure Mean 60 88 Pulse Ox 99 Oxygen Delivery Method Room Air 02/15/23 16:00 Temperature Temperature Source Pulse Rate 126 H Respiratory Rate 28 H Respiratory Effort Respiratory Pattern Blood Pressure 100/69 Blood Pressure Mean 79 Pulse Ox 99 Oxygen Delivery Method Room Air Weight Weight: 59.7 kg Body Mass Index (BMI) 26.6 Physical Exam Narrative GENERAL: Lethargic HEENT: Atraumatic; dry oral mucosa EYES; Anicteric, Normal Conjunctiva NECK; supple, normal thyroid, RESPIRATORY: Diminished to auscultation CARDIOVASCULAR: Regular S1 S2, GI: soft, normoactive bowel sounds, : No Renal angle tenderness; EXTREMITIES: No edema, no clubbing, MUSCULOSKELETAL: no muscle wasting NEURO: Awake; no lateralizing signs. SKIN: No Rash PSYCH; Flat affect Results Lab / Micro Data 02/15/23 16:05 02/15/23 16:05 Labs: Laboratory Results - last 24 hr 02/15/23 14:21: POC Glucose > 500 H* 02/15/23 16:05: WBC 23.4 H, RBC 5.61 H, Hgb 16.1 H, Hct 44.8, MCV 79.9 L, MCH 28.7, MCHC 35.9, RDW Std Deviation 35.8, RDW Coeff of Marilynn 12.7, Plt Count 548 H,MPV 8.8, Immature Gran % (Auto) 0.900, Neut % (Auto) 89.7 H, Lymph % (Auto) 4.2 L, [place] % (Auto) 4.9, Eos % (Auto) 0.0, Baso % (Auto) 0.3, Absolute Neuts (auto)21.0 H, Absolute Lymphs (auto) 0.98, Nucleated RBC % 0, Sodium 127 L, Potassium 2.8 L, Chloride 86 L, Carbon Dioxide 12.0 L, Anion Gap 29 H, BUN 55 H, Creatinine 1.49 H, Estim Creat Clear Calc 54.87, Est GFR (MDRD) Af Amer 55 L, Est GFR (MDRD) Non-Af 45 L, BUN/Creatinine Ratio 36.9 H, Glucose 443 H, Lactic Acid 1.5, Calcium 8.6, Total Bilirubin 1.10 H, AST 13 L, ALT 17, Alkaline Phosphatase 151 H, Total Protein 7.9, Albumin 3.9, Globulin 4.0, Albumin/Globulin Ratio 1.0, Lipase < 10 L, Serum , Qual NEGATIVE, Acetone Level LARGE H 02/15/23 16:36: POC Glucose 438 H Radiology Impression Chest X-Ray 02/15/23 16:00 IMPRESSION: New left IJ catheter in the SVC. No pneumothorax. Electronically Signed: Arjun Moreland MD at 16:46 EDT Reading Location ID and State: [address] [place] [address] , Service support , Assessment & Plan Assessment/Plan (1) DKA, type 1: PLAN: Plan Patient is a 22-year-old lady with history of diabetes mellitus type 1 presentedwith intractable nausea vomiting diagnosed with DKA admitted to the intensive care unit 1. Diabetic ketoacidosis ? Patient has been admitted to the intensive care unit management IV fluids, systemic insulin, serial monitoring of electrolytes and correction of electrolyte abnormalities. Patient progressed being monitored with every 4 BMP 2. Acute kidney injury ? Patient baseline creatinine 0.48 from BMP drawn on 11/07/2021. Creatinine on admission 1.49started on IV fluids serial monitoring of electrolytes ordered 3. Hypokalemia -Corrected per protocol 4. Hyponatremia ? Secondary to pseudohyponatremia from patient's hyperglycemia do expect rapid correction with treatment of underlying DKA 5. Depression with anxiety ? Patient is on as needed hydroxyzine 6. Mild intermittent asthma ? Aerosol treatments as needed 7. Polysubstance abuse ? Include occasional use of marijuana, Adderall as well as Suboxone, Cessation encouraged 8. Suspected acute cystitis ? Patient started on Rocephin urine culture sent Time spent in the patient's overall evaluation,decision-making process, review of diagnostic data, adjustment of management, discussion with other providers, nursing nursing and ancillary staff involved in patient's care documentation, 80Minutes Charges/Coding Multi Select Codes Hospitalists' Procedures Procedures: 64132 Critial Care 1st Hr and 84888 Critial Care Addl 30 Min 02/15/23 1724 <Electronically signed by Jackeline Akhtar MD> Cosigner Signature (if applicable): CC: Dr. Erika Sen MD; Dr. Jackeline Akhtar MD~ Signed [facility] Work Phone: 1(473) 833-546006-29-2023 Miscellaneous Notes* Telephone Encounter - NISSA Berg - 01/16/2023 10:11 AM EDT Behavioral Health Social Work Progress Note Patient identified for [facility] from: PCP Reason for referral: Resources Behavioral Health Resources: Psychiatry med management [facility] encounter type: Telephone Encounter Attempts to Outreach: 1 attempt Referral made: Psychiatry - Internal, Psychiatry - External Psychiatry-Internal referral type: Medication Management Psychiatry-External referral type: Medication Management Patient reported that caregiver was able to meet their needs today?: N/A Phone call placed today that went to [employer]. Left my contact information and brief nature of call. Initial outreach also completed via Between sending list of in network providers with insurance. NISSA Berg-S January 16, 2023 [facility] History of Present illness Narrative* Chasity Hodge PA-C - 01/16/2023 8:15 AM EDT Chief Complaint Patient presents with: Psychiatric Problem: Patient thinks she may be bipolar HPI Kalie Desir is a 22 year old female [...] do. She also states that she has madepoor purchasing decisions. She recently bought a [employer]ep after getting a job and then [...] 2 Puffs as instructed every 4 hours asneeded. etonogestrel (NEXPLANON) subdermal implant 68 mg ONCE potassium chloride ER (K-DUR, KLOR-CON) 20 mEq tablet Take 20 mEq by mouth twice daily. Alcohol Swabs (ALCOHOL PREP PADS) padm Apply 1 application to affected area every 4 hours as needed(blood glucose check). ondansetron orally disintegrating (ZOFRAN ODT) [...] 100 unit/mL (3 mL) Inject 45 Units subcutaneouslydaily at bedtime. Per Endo: Dr. Chow (Patient not taking: Reported on 12/31/2021 ) insulin aspart U-100 (NOVOLOG) 100 unit/mL (3 mL) Inject 30 Units subcutaneously three times daily before meals. Per Endo, Dr. Chow (Patient not taking: Reported on 12/26/2021 ) flash glucose sensor (FREESTYLE DANIELA 14 DAY SENSOR) kit apply 1 SENSOR TO THE BACK OF UPPER ARM. REMOVE AND REPLACE EVERY 14 DAYS. USE WITH DEVICE TO MONITOR BLOOD SUGAR four times a day (Patient not taking: Reported on 10/16/2022) etonogestrel (NEXPLANON) subdermal implant 68 mg 1 Each by SUBDERMAL route as directed. (Patient not taking: Reported on 07/02/2021 ) flash glucose scanning reader (FREESTYLE DANIELA 14 DAY READER) [facility] [place] For blood sugar checks 4 times aday (Patient not taking: Reported on 10/16/2022) Insulin Rincon, Disposable, (OPAL PEN NEEDLE) 32 gauge x 5/32 ndle [...] or having a seizure. (Patient not taking: Reportedon 12/26/2021 ) Inhalational Spacing Device (AEROCHAMBER MASK [...] to call to set up visit with [facility] and I have place a consult to [facility] to help bridge the gap. I advised patient that in near future she needs to return for PE and routine care. Okay to wait until psych health is being addressed appropriately. Chasity Hodge PA-C I spent a total of 38 minutes on the date of the service which included preparing to see the patient, [id number] patient care, completing clinical documentation, obtaining and/or reviewing separately obtained history, performing a medically appropriate examination, counseling and educating the pat ient/family/caregiver, ordering medications, tests, or procedures, and communicating results to thepatient/family/caregiver. documented in [facility] Miscellaneous Notes* Telephone Encounter - Srini Gerber LPN - 01/07/2023 8:15 AM EDT Spoke with pt. She states she accidentally sent request to wrong provider and did get this refilled. Srini Gerber LPN * Telephone Encounter - Juan Carlos Candelario MD - 01/06/2023 10:10 PM EDT Advise patient she needs to be calling her body art technician for her insulin. If she stopped seeing endo then she needs to get back in with them since I do not manage type 1 diabetics. Also she told someone back on 12/26/2021 that she was no longer taking it. * Telephone Encounter - Soo Callaway Ma - 01/06/2023 3:43 PM EDT Last office visit: 12/31/21 F/u scheduled: 01/16/23 oSo Callaway Ma documented in this encounterSal[facility]06-[facility]-[address] [place] [facility] December 24, 2022 5:17am Note Date/Time December 24, 2022 1:13a m [facility] Medical Records Department [address] [place] [address] Emergency Department Summary 12/24/22 MR#: [id number] Acct: [id number] Name: KALIE DESIR Rep #:[id number] : 2000 22 From: Danitza Beard PCP: Dr. Erika Sen MD Status:REG E R Location: ED HPI History of Present Illness Chief Complaint: Hyperglycemia Informant: patient Narrative Narrative: Patient is a 22-year-old female with history of type 1 diabetes mellitus presenting with nausea, vomiting, elevated blood sugar and back pain. Patient states she has been taking her insulin. She does not currently have an insulin pump. When she checked her blood sugar this morning it read high. She took insulin it went down to 486. Later in the day she took more insulin and on repeat her blood sugar was in the 200s. Patient notes she has been having painful urination today and bilateral low back pain. She states she keeps taking showers to try to help with her low back pain. She states last time she was in DKA was 3 months ago and at that time she had ran out of her insulin. She does not report any fevers. She continues to have nausea and dry heaves. No abdominal pain. No other complaints at this time. [facility] Medical History Anxiety and depression Asthma Diabetes type 1, controlled History of marijuana use Implanon in place Insulin pump titration Presence of insulin pump Home Medications albuterol sulfate 90 mcg/actuation aerosol inhaler (Ventolin HFA) 2 puff inhalation Q4H PRN PRN Sob &/Or Wheezing 08/25/18 [History Last Taken 05/12/19] Ketone Urine Test (acetone (urine) test) #50 ea 11/05/21 [Rx Last Taken Unknown] insulin aspart U-100 100 unit/mL subcutaneous solution 100 unit continuous subcutaneous infusion .continuous #90 mL 09/26/22 [Rx Last Taken Unknown] fluticasone propionate 50 mcg/actuation nasal spray,suspension 2 spray intranasal DAILY 11/21/22 [History Last Taken Unknown] FreeStyle Daniela 14 Day Sensor (flash glucose sensor) #2 ea 11/23/22 [Rx Last Taken Unknown] blood-glucose sensor (Dexcom G6 Sensor device) #10 ea 11/23/22 [Rx Last Taken Unknown] blood-glucose transmitter (Dexcom G6 Transmitter device) #1 ea 11/23/22 [Rx Last Taken Unknown] insulin aspart U-100 100 unit/mL (3 mL) subcutaneous pen (Novolog FlexPen U-100 Insulin aspart) 5 unit (0.05 mL) subcut TID #15 mL 11/23/22 [Rx Last Taken Unknown] insulin glargine 100 unit/mL (3 mL) subcutaneous pen (Basaglar KwikPen U-100 Insulin) 15 unit (0.15 mL) subcut BID #15 mL 11/23/22 [Rx Last Taken Unknown] insulin pump cart,automated,BT (Omnipod 5 G6 Pods (Gen 5) subcutaneous cartridge) #10 ea 11/23/22 [Rx Last Taken Unknown] insulin pump cart,automated,BT (Omnipod 5 G6 Pods (Gen 5) subcutaneous cartridge) #45 ea 11/23/22 [Rx Last Taken Unknown] insulin pump cartridge,automated dose,BT with controller subcutaneous (Omnipod 5G6 Intro Kit (Gen 5) subcutaneous cartridge with controller) #1 ea 11/23/22 [Rx Last Taken Unknown] pen needle, diabetic 32 gauge x 5/32 (BD Ultra-Fine Opal Pen Needle) #120 ea 11/23/22 [Rx Last Taken Unknown] hydroxyzine pamoate 25 mg capsule (Vistaril) 25 mg PO QHS #30 caps 12/11/22 [Rx Last Taken Unknown] Allergy/AdvReac Type Severity Reaction Status Date / Time bee venom protein (honey bee) Allergy Severe Anaphylaxis Verified 12/23/22 23:50 [bee stings] Penicillins Allergy Unknown Verified 12/23/22 23:50 Sulfa (Sulfonamide Allergy Unknown Verified 12/23/22 23:50 Antibiotics) prednisone AdvReac Vomiting Verified 12/23/22 23:50 Family History Grandmother Diabetes Sister Asthma Brother Asthma Mother Heart disease Surgical History History of placement of ear tubes Social History household members: family Smoking Status: Never smoker second hand exposure: No alcohol intake: never substance use type: other details: Cannabis, last use ~ 1 month prior, ingested. ROS ROS ED Constitutional Constitutional ED: Denies chills or fever(s) Eyes Eyes: Denies change in vision ENT ENT ED: Denies sore throat Cardiovascular Cardiovascular: Denies chest pain or palpitations Respiratory/Chest Respiratory/Chest: Denies cough or dyspnea Gastrointestinal Gastrointestinal: Reports abdominal pain, nausea and vomiting Genitourinary Genitourinary ED: Reports dysuria and urinary frequency; Denies hematuria Musculoskeletal Musculoskeletal: Reports back pain; Denies myalgias Integumentary Denies rash Neurologic Neurologic: Reports headache(s); Denies weakness Psychiatric Psychiatric: Denies anxiety EXAM Physical Exam Const Vital Signs: 12/23/22 23:46 12/23/22 23:51 12/24/22 01:02 Temperature 97.6 F L Temperature Source Temporal Pulse Rate 157 H 145 H Respiratory Rate 34 H Respiratory Effort Normal Non-Labored Respiratory Pattern Normal Blood Pressure 152/101 H Blood Pressure Mean 118 Pulse Ox 98 Oxygen Delivery Method Room Air 12/24/22 02:00 12/24/22 03:49 12/24/22 04:00 Temperature Temperature Source Pulse Rate 143 H 147 H 149 H Respiratory Rate 30 H 32 H 29 H Respiratory Effort Respiratory Pattern Blood Pressure 118/91 H 133/81 H 142/78 H Blood Pressure Mean 100 98 99 Pulse Ox 99 98 96 Oxygen Delivery Method Room Air Room Air Room Air Positive well nourished and well developed Constitutional Narrative: Patient peers dehydrated and in acute distress likely secondary to DKA General Appearance ED: well developed HEENT Reports dry mucous membranes Mouth ED: Yes dry mucous membranes Mouth: dry mucous membranes Eyes PERRL and EOMs intact bilaterally Neck supple Chest Wall inspection of chest normal and palpation of chest normal Resp clear to auscultation bilaterally Resp Narrative: Tachypneic, Kussmaul respirations present Effort and Inspection: Negative for retractions Cardio regular rhythm and no murmurs Rate: tachycardic GI normal to inspection, nondistended, normoactive bowel sounds and non-tender Extremity normal to inspection General Extremety ED: Negative for edema General Extremity: Negative for edema Neuro oriented x3 Sensorium / Orientation: alert Motor Exam: general weakness Psych mental status grossly normal Skin no rashes or lesions noted and no wounds MDM MDM MDM Narrative Medical decision making narrative: Patient is evaluated for nausea, vomiting and dysuria. On arrival patient is tachypneic, tachycardic and her presentation is concerning for DKA especially asshe has been having high glucose readings at home. DKA work-up is initiated andshe is started on of boluses of IV fluid with 2 L normal saline. Patient has a leukocytosis as well as an elevation of her platelets and hemoglobin. I suspectsome of this is reactive and hemoconcentrated.VBG shows a metabolic acidosis with a pH of 7.12, bicarb of 6 and her BMP shows an elevation of her creatinine of 1.43, an elevated glucose of 604, and anion gap of 27 which are all consistent with DKA. Patient's baseline creatinine is 0.6 and she also has an FRANKLIN. Urinalysis is concerning with infection for positive nitrates as well as 1+ bacteria however she also has casts and no white blood cells or leukocyte esterase. She is having symptoms. She is given IV Rocephin however I did also obtain a CT of the abdomen pelvis to make sure that she does not have an obstructing kidney stone as a cause of her pelvic symptoms.CT does not show any acute process. Patient started on an insulin drip. She is admitted to the ICU for further management treatment of her DKA. Case discussed with admitting physician, Dr. Vaca. History & Record Review Additional record(s) reviewed:: Prior labs Lab Data Attestation: I reviewed the patient's lab results. Labs: Laboratory Results - last 24 hr 12/24/22 12/24/22 12/24/22 00:00 00:15 00:15 WBC 21.4 H RBC 5.62 H Hgb 15.6 H Hct 48.4 H MCV 86.1 MCH 27.8 MCHC 32.2 RDW Std Deviation 40.8 RDW Coeff of Marilynn 13.4 Plt Count TNP MPV 10.2 Immature Gran % (Auto) 0.900 Neut % (Auto) 93.0 H Lymph % (Auto) 3.4 L [place] % (Auto) 2.4 Eos % (Auto) 0.0 Baso % (Auto) 0.3 Absolute Neuts (auto) 19.9 H Absolute Lymphs (auto) 0.73 L Nucleated RBC % 0 Platelet Estimate ADEQUATE Sodium 134 L Potassium 4.3 Chloride 97 L Carbon Dioxide 10.0 L Anion Gap 27 H BUN 14 Creatinine 1.43 H Estim Creat Clear Calc 55.74 Est GFR (MDRD) Af Amer 58 L Est GFR (MDRD) Non-Af 48 L BUN/Creatinine Ratio 9.8 L Glucose 595 H* Calcium 10.0 Phosphorus 4.2 Magnesium 2.3 Total Bilirubin 0.60 AST 12 L ALT 18 Alkaline Phosphatase 130 H Total Protein 9.0 H Albumin 4.7 Globulin 4.3 H Albumin/Globulin Ratio 1.1 Serum , Qual Urine Color Yellow Urine Clarity Clear Urine pH 6.0 Ur Specific [place] 1.025 Urine Protein 100 H Urine Glucose (UA) 1000 H Urine Ketones 150 A* Urine Occult Blood 50 H Urine Nitrite Positive H Urine Bilirubin Negative Urine Urobilinogen Normal Ur Leukocyte Esterase Negative Urine RBC 0-5 SEEN Urine WBC 0 SEEN Ur Squamous Epith Cells 0 SEEN Urine Bacteria 1+ Hyaline Casts 10-25 SEEN Urine Mucus 1+ Acetone Level POC Glucose 12/24/22 12/24/22 12/24/22 00:15 00:15 00:15 WBC RBC Hgb Hct MCV MCH MCHC RDW Std Deviation RDW Coeff of Marilynn Plt Count MPV Immature Gran % (Auto) Neut % (Auto) Lymph % (Auto) [place] % (Auto) Eos % (Auto) Baso % (Auto) Absolute Neuts (auto) Absolute Lymphs (auto) Nucleated RBC % Platelet Estimate Sodium Cancelled Potassium Cancelled Chloride Cancelled Carbon Dioxide Cancelled Anion Gap Cancelled BUN Cancelled Creatinine Cancelled Estim Creat Clear Calc Cancelled Est GFR (MDRD) Af Amer Cancelled Est GFR (MDRD) Non-Af Cancelled BUN/Creatinine Ratio Cancelled Glucose Cancelled Calcium Cancelled Phosphorus Magnesium Total Bilirubin AST ALT Alkaline Phosphatase Total Protein Albumin Globulin Albumin/Globulin Ratio Serum , Qual NEGATIVE Urine Color Urine Clarity Urine pH Ur Specific [place] Urine Protein Urine Glucose (UA) Urine Ketones Urine Occult Blood Urine Nitrite Urine Bilirubin Urine Urobilinogen Ur Leukocyte Esterase Urine RBC Urine WBC Ur Squamous Epith Cells Urine Bacteria Hyaline Casts Urine Mucus Acetone Level SMALL H POC Glucose 12/24/22 12/24/22 12/24/22 00:24 01:26 02:27 WBC RBC Hgb Hct MCV MCH MCHC RDW Std Deviation RDW Coeff of Marilynn Plt Count MPV Immature Gran % (Auto) Neut % (Auto) Lymph % (Auto) [place] % (Auto) Eos % (Auto) Baso % (Auto) Absolute Neuts (auto) Absolute Lymphs (auto) Nucleated RBC % Platelet Estimate Sodium Potassium Chloride Carbon Dioxide Anion Gap BUN Creatinine Estim Creat Clear Calc Est GFR (MDRD) Af Amer Est GFR (MDRD) Non-Af BUN/Creatinine Ratio Glucose Calcium Phosphorus Magnesium Total Bilirubin AST ALT Alkaline Phosphatase Total Protein Albumin Globulin Albumin/Globulin Ratio Serum , Qual Urine Color Urine Clarity Urine pH Ur Specific [place] Urine Protein Urine Glucose (UA) Urine Ketones Urine Occult Blood Urine Nitrite Urine Bilirubin Urine Urobilinogen Ur Leukocyte Esterase Urine RBC Urine WBC Ur Squamous Epith Cells Urine Bacteria Hyaline Casts Urine Mucus Acetone Level POC Glucose > 500 H* > 500 H* > 500 H* 12/24/22 12/24/22 12/24/22 03:20 03:22 04:37 WBC RBC Hgb Hct MCV MCH MCHC RDW Std Deviation RDW Coeff of Marilynn Plt Count MPV Immature Gran % (Auto) Neut % (Auto) Lymph % (Auto) [place] % (Auto) Eos % (Auto) Baso % (Auto) Absolute Neuts (auto) Absolute Lymphs (auto) Nucleated RBC % Platelet Estimate Sodium Potassium Chloride Carbon Dioxide Anion Gap BUN Creatinine Estim Creat Clear Calc Est GFR (MDRD) Af Amer Est GFR (MDRD) Non-Af BUN/Creatinine Ratio Glucose 604 H* Calcium Phosphorus Magnesium Total Bilirubin AST ALT Alkaline Phosphatase Total Protein Albumin Globulin Albumin/Globulin Ratio Serum , Qual Urine Color Urine Clarity Urine pH Ur Specific [place] Urine Protein Urine Glucose (UA) Urine Ketones Urine Occult Blood Urine Nitrite Urine Bilirubin Urine Urobilinogen Ur Leukocyte Esterase Urine RBC Urine WBC Ur Squamous Epith Cells Urine Bacteria Hyaline Casts Urine Mucus Acetone Level POC Glucose > 500 H* 434 H ABG Data ABG results: ABG 12/24/22 00:24 Specimen Type LUIS VBG pH 7.12 L* VBG pO2 57 H VBG HCO3 6 L VBG Total CO2 6 L VBG O2 Sat (Calc) 80 H VBG Base Excess -24 L POC Mix VBG pCO2 Pt Tmp 17.7 L* Crit Call To/Read Back Yes Radiography Diagnostic Testing: Clinical Impression(s) from Imaging Studies Abdomen/Pelvis CT 12/24/22 01:08 IMPRESSION: Negative unenhanced CT abdomen and pelvis. Electronically Signed: Nathan Mcarthur MD at 2:58 EDT , Rhythm Strip Rhythm Strip: Sinus Tach Rate: 146 Ectopy: None EKG Initial EKG: Attestation: I personally reviewed and interpreted this EKG as follows: Interpretation: Sinus Tachycardia Comments: Sinus tachycardia rate of 146 bpm Normal axis Normal intervals Normal ST segments Critical Care Time Critical Care Time: Yes Critical care time (excluding procedures): 30-74 minutes (40), Discussing w/Patient &/or Family/Practice Specialist, Arranging Admission or Transfer and PerformingDirect Patient Care at Bedside Discharge Plan Triage Chief Complaint: Hyperglycemia ED Provider: Danitza Canada Dx/Rx/DC Orders Clinical Impression: DKA, type 1, FRANKLIN (acute kidney injury), UTI (urinary tract infection) Prescriptions: No Action insulin aspart U-100 100 unit/mL solution 100 unit continuous subcutaneous infusion .continuous Qty: 90 1RF albuterol sulfate [Ventolin HFA] 18 GM HFA aerosol inhaler 2 puff inhalation Q4H PRN PRN (Reason: Sob &/Or Wheezing) Label Comments: inhale 2 puffs by mouth every 4 hours if needed fluticasone propionate 50 mcg/actuation spray,suspension 2 spray INTRANASAL DAILY Label Comments: USE 2 SPRAYS IN EACH NOSTRIL ONCE DAILY. RINSE MOUTH AFTER USE. (DME) Dexcom G6 Sensor Device See Rx Instructions .Route Qty: 10 5RF Rx Instructions: As directed (DME) Dexcom G6 Transmitter Device See Rx Instructions .Route Qty: 1 3RF Rx Instructions: As directed (DME) pen needle, diabetic [BD Ultra-Fine Opal Pen Needle] 32 gauge x 5/32 needle See Rx Instructions .ROUTE .MEDSUPPLY Qty: 120 5RF Rx Instructions: 4 times daily (DME) FreeStyle Daniela 14 Day Sensor Kit See Rx Instructions .ROUTE .MEDSUPPLY Qty: 2 3RF Rx Instructions: As directed (DME) Omnipod 5 G6 Pods (Gen 5) Cartridge See Rx Instructions .Route Qty: 10 5RF Rx Instructions: As directed (DME) Omnipod 5 G6 Pods (Gen 5) Cartridge See Rx Instructions .Route Qty: 45 1RF Rx Instructions: change every 48-72 hours (DME) Omnipod 5 G6 Intro Kit (Gen 5) Cartridge See Rx Instructions .Route Qty: 1 0RF Rx Instructions: As directed insulin glargine [Basaglar KwikPen U-100 Insulin] 100 unit/mL (3 mL) insulin pen 15 unit subcut BID Qty: 15 0RF insulin aspart U-100 [Novolog FlexPen U-100 Insulin] 100 unit/mL (3 mL) insulin pen 5 unit subcut TID Qty: 15 0RF (DME) Ketone Urine Test Strip See Rx Instructions .ROUTE .MEDSUPPLY Qty: 50 1RF Rx Instructions: once/day hydroxyzine pamoate [Vistaril] 25 mg capsule 25 mg PO QHS Qty: 30 6RF Primary Care Provider: Erika Sen Referrals: Erika Sen MD [Primary Care Provider] - Disposition Disposition: Acute Care Hospital [facility] What to do if you have Problems For any increased pain, shortness of breath, bleeding, nausea or vomiting, chestpain, or any unexpected problems, contact your Primary Care Provider. Call [facility] ([phone]) or report to the closest Emergency Room. Call 911 if necessary. 12/24/22516 <Electronically signed by Danitza Canada DO> Cosigner Signature (if applicable): CC: Dr. Erika Sen MD ~ Signed [facility] Work Phone: [phone]) 313-542905-06-[address] Akhtar [facility] November 23, 2022 8:55am Note Date/Time November 23, 2022 8:55am [facility] Medical Records Department [address] [place], [place] [address] [place] [address] Discharge Summary 11/23/22 0853 MR#: [id number] Acct: [id number] Name: KALIE DESIR Rep #:[id number] : 2000 22 From: Jackeline Akhtar MD PCP: Dr. Erika Sen MD Status:ADM I N Location: ICU [place] [address] 2-1 Providers Date of Admission: 11/21/22 Date of Discharge: 11/23/22 Primary Care Physician: Dr. Erika Sen MD Reason For Visit: DKA Diagnosis Discharge Diagnosis (1) DKA (diabetic ketoacidoses): Status: Acute Code(s): E11.10 - Type 2 diabetes mellitus with ketoacidosis without coma Plan Patient is a 22-year-old lady with history of diabetes mellitus type 1 presentedwith intractable nausea vomiting diagnosed with DKA admitted to the intensive care unit where patient is currently being 1. Diabetic ketoacidosis ? Patient has been admitted to the intensive care unit management IV fluids, systemic insulin, serial monitoring of electrolytes and correction of electrolyte abnormalities. Patient progressed being monitored with every 4 BMP ?DKA resolved patient started on long-acting insulin with scheduled short actinginsulin. 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 Acute kidney injury ? Patient baseline creatinine 0.48 from BMP drawn on 11/07/2021. Creatinine on admission was 1.12. Patient has been started on IV fluids serial monitoring of electrolytes ordered 3. Depression with anxiety ? Patient is on as needed hydroxyzine 4. Mild intermittent asthma ? Aerosol treatments as needed 5. Occasional use of marijuana ? Cessation encouraged 6. DVT prophylaxis - On enoxaparin 7. Suspected acute cystitis ? Patient started on Rocephin urine culture sent Time spent in the patient's overall evaluation,decision-making process, review of diagnostic data, adjustment of management, discussion with other providers, nursing nursing and ancillary staff involved in patient's care documentation, 35Minutes Medications at Discharge Home Medications albuterol sulfate 90 mcg/actuation aerosol inhaler (Ventolin HFA) 2 puff inhalation Q4H PRN PRN Sob &/Or Wheezing 08/25/18 Ketone Urine Test (acetone (urine) test) #50 ea 11/05/21 hydroxyzine pamoate 25 mg capsule (Vistaril) 25 mg PO QHS #30 caps 02/07/22 insulin aspart U-100 100 unit/mL subcutaneous solution 100 unit continuous subcutaneous infusion .continuous #90 mL 09/26/22 potassium citrate 99 mg capsule 99 mg PO DAILY 09/26/22 fluticasone propionate 50 mcg/actuation nasal spray,suspension intranasal 11/21/22 FreeStyle Daniela 14 Day Sensor (flash glucose sensor) #2 ea 11/23/22 blood-glucose sensor (Dexcom G6 Sensor device) #10 ea 11/23/22 blood-glucose transmitter (Dexcom G6 Transmitter device) #1 ea 11/23/22 ciprofloxacin HCl 500 mg tablet (Cipro) 500 mg PO BID #14 tabs 11/23/22 insulin aspart U-100 100 unit/mL (3 mL) subcutaneous pen (Novolog FlexPen U-100 Insulin aspart) 5 unit (0.05 mL) subcut TID #15 mL 11/23/22 insulin glargine 100 unit/mL (3 mL) subcutaneous pen (Basaglar KwikPen U-100 Insulin) 15 unit (0.15 mL) subcut BID #15 mL 11/23/22 insulin pump cart,automated,BT (Omnipod 5 G6 Pods (Gen 5) subcutaneous cartridge) #10 ea 11/23/22 insulin pump cart,automated,BT (Omnipod 5 G6 Pods (Gen 5) subcutaneous cartridge) #45 ea 11/23/22 insulin pump cartridge,automated dose,BT with controller subcutaneous (Omnipod 5G6 Intro Kit (Gen 5) subcutaneous cartridge with controller) #1 ea 11/23/22 pen needle, diabetic 32 gauge x 5/32 (BD Ultra-Fine Opal Pen Needle) #120 ea 11/23/22 Hospital Course Summary of Care Provided Minutes Spent on Discharge: 35 Physical Exam Narrative GENERAL: cooperative HEENT: Atraumatic; normocephalic EYES; Anicteric, Normal Conjunctiva NECK; supple, normal thyroid, RESPIRATORY: Diminished to auscultation CARDIOVASCULAR: Regular S1 S2, GI: soft, normoactive bowel sounds, : No Renal angle tenderness; EXTREMITIES: No edema, no clubbing, MUSCULOSKELETAL: no muscle wasting NEURO: Awake; no lateralizing signs. SKIN: No Rash PSYCH; Flat affect Weight / BMI Weight Weight: 57.5 kg Body Mass Index (BMI) 25.6 ABG / Lab / Microbiology Data Result Diagrams: 11/23/22 03:35 11/23/22 03:35 Laboratory: Laboratory Results - last 24 hr 11/22/22 09:16: POC Glucose 133 H 11/22/22 10:31: POC Glucose 161 H 11/22/22 11:38: POC Glucose 121 H 11/22/22 17:06: POC Glucose 250 H 11/22/22 21:23: POC Glucose 193 H 11/23/22 03:35: WBC 12.9 H, RBC 4.23, Hgb 11.9 L, Hct 35.7 L, MCV 84.4, MCH 28.1, MCHC 33.3, RDW Std Deviation 38.9, RDW Coeff of Marilynn 12.7, Plt Count TNP, MPV 9.3, Immature Gran % (Auto) 0.300, Neut % (Auto) 76.4 H, Lymph % (Auto) 18.0L, [place] % (Auto) 4.7, Eos % (Auto) 0.2, Baso % (Auto) 0.4, Absolute Neuts (auto)9.8 H, Absolute Lymphs (auto) 2.32, Nucleated RBC % 0, Platelet Estimate ADEQUATE, Plt Morphology Comment CLUMPED 11/23/22 03:35: Sodium 138, Potassium 3.6, Chloride 106, Carbon Dioxide 23.0, Anion Gap 9, BUN 12, Creatinine 0.66, Estim Creat Clear Calc 119.10, Est GFR (MDRD) Af Amer 141, Est GFR (MDRD) Non-Af 116, BUN/Creatinine Ratio 18.2, Glucose 186 H, Calcium 8.7, Phosphorus 2.4 L, Magnesium 2.2 11/23/22 03:50: POC Glucose 160 H 11/23/22 07:39: POC Glucose 101 D/C Instructions Discharge Diet: 1800 Calorie Control Diet Discharge Activity: Return to Normal Activity Call your doctor if you observe: Fever of 101 or Higher, Shortness of breath, Fainting spells and Chest pain Meaningful Use Info Meaningful Use Diagnoses (Choose all that apply): None applicable Discharge Plan Admission Admit Date/Time: 11/21/22 19:16 Attending Provider: Jackeline Akhtar Primary Care Provider: Erika eSn Consulting Providers: Delia Navarro Discharge Orders/Prescriptions Prescriptions: New ciprofloxacin HCl [Cipro] 500 mg tablet 500 mg PO BID Qty: 14 0RF insulin glargine [Basaglar KwikPen U-100 Insulin] 100 unit/mL (3 mL) insulin pen 15 unit subcut BID Qty: 15 0RF insulin aspart U-100 [Novolog FlexPen U-100 Insulin] 100 unit/mL (3 mL) insulin pen 5 unit subcut TID Qty: 15 0RF Continued hydroxyzine pamoate [Vistaril] 25 mg capsule 25 mg PO QHS Qty: 30 6RF potassium citrate 99 mg capsule 99 mg PO DAILY insulin aspart U-100 100 unit/mL solution 100 unit continuous subcutaneous infusion .continuous Qty: 90 1RF albuterol sulfate [Ventolin HFA] 18 GM HFA aerosol inhaler 2 puff inhalation Q4H PRN PRN (Reason: Sob &/Or Wheezing) Label Comments: inhale 2 puffs by mouth every 4 hours if needed fluticasone propionate 50 mcg/actuation spray,suspension INTRANASAL Label Comments: USE 2 SPRAYS IN EACH NOSTRIL ONCE DAILY. RINSE MOUTH AFTER USE. (DME) Dexcom G6 Sensor Device See Rx Instructions .Route Qty: 10 5RF Rx Instructions: As directed (DME) Dexcom G6 Transmitter Device See Rx Instructions .Route Qty: 1 3RF Rx Instructions: As directed (DME) pen needle, diabetic [BD Ultra-Fine Opal Pen Needle] 32 gauge x 5/32 needle See Rx Instructions .ROUTE .MEDSUPPLY Qty: 120 5RF Rx Instructions: 4 times daily (DME) FreeStyle Daniela 14 Day Sensor Kit See Rx Instructions .ROUTE .MEDSUPPLY Qty: 2 3RF Rx Instructions: As directed (DME) Omnipod 5 G6 Pods (Gen 5) Cartridge See Rx Instructions .Route Qty: 10 5RF Rx Instructions: As directed (DME) Omnipod 5 G6 Pods (Gen 5) Cartridge See Rx Instructions .Route Qty: 45 1RF Rx Instructions: change every 48-72 hours (DME) Omnipod 5 G6 Intro Kit (Gen 5) Cartridge See Rx Instructions .Route Qty: 1 0RF Rx Instructions: As directed (DME) Ketone Urine Test Strip See Rx Instructions .ROUTE .MEDSUPPLY Qty: 50 1RF Rx Instructions: once/day Referrals / Follow Up: Erika Sen MD [Primary Care Provider] - In 1 Week Disposition Disposition (needs filled in before D/C Order can be placed): Home, Self Care Charges/Coding Visit Charges Inpatient E&M: 07525 Disch Hosp >30min 11/23/22 0855 <Electronically signed by Jackeline Akhtar MD> Cosigner Signature (if applicable): CC: Dr. Erika Sen MD; Dr. Jackeline Akhtar MD~ Signed [facility] Work Phone: 1(925) 271-399605-06-[address] Akhtar [facility] November 23, 2022 8:44am Note Date/Time November 23, 2022 6:54am [facility] Medical Records Department [address] [place] [address] Progress Note - Hospitalist 11/23/22 0653 MR#: [id number] Acct: [id number] Name: KALIE DESIR Rep #:[id number] : 2000 22 From: Jackeline Akhtar MD PCP: Dr. Erika Sen MD Status:ADM I N Location: ICU CVICU 2-1 Reason for Visit Reason for Visit: Diagnoses Type 2 diabetes mellitus with ketoacidosis without coma (11/21/22) Subjective Subjective Patient was started on Rocephin, urine culture sent for suspected cystitis. Shewas weaned off insulin drip the day prior transition to long-acting insulin Objective Data Objective Data Vital Signs: Vital Signs Temp Pulse Resp BP Pulse Ox O2 Del Method 98 F 77 14 111/70 99 Room Air 11/23/22 04:00 11/23/22 06:00 11/23/22 06:00 11/23/22 06:00 11/23/22 06:00 11/23/22 06:00 Oxygen Delivery Method Room Air Weight: 57.5 kg Body Mass Index (BMI) 25.6 Intake & Output: Intake and Output for Last 24 Hours 11/21/22 11/22/22 11/23/22 23:59 23:59 23:59 Intake Total 2021. / 4231.23 / 4231.23 475 / 475 Output Total 400 / 400 0 / 0 Balance 1622.94 / 1622.94 4231.23 / 4231.23 475 / 475 Lab / Micro Data Result Diagrams: 11/23/22 03:35 11/23/22 03:35 Labs: Laboratory Results - last 24 hr 11/22/22 05:10: Hemoglobin A1c 9.9 H 11/22/22 07:26: POC Glucose 114 H 11/22/22 08:20: Sodium 143, Potassium 3.8, Chloride 112 H, Carbon Dioxide 21.0, Anion Gap 10, BUN 19 H, Creatinine 0.90, Estim Creat Clear Calc 87.34, Est GFR (MDRD) Af Amer 98, Est GFR (MDRD) Non-Af 81, BUN/Creatinine Ratio 21.1 H, Glucose 124 H, Calcium 9.1 11/22/22 09:16: POC Glucose 133 H 11/22/22 10:31: POC Glucose 161 H 11/22/22 11:38: POC Glucose 121 H 11/22/22 17:06: POC Glucose 250 H 11/22/22 21:23: POC Glucose 193 H 11/23/22 03:35: WBC 12.9 H, RBC 4.23, Hgb 11.9 L, Hct 35.7 L, MCV 84.4, MCH 28.1, MCHC 33.3, RDW Std Deviation 38.9, RDW Coeff of Marilynn 12.7, Plt Count TNP, MPV 9.3, Immature Gran % (Auto) 0.300, Neut % (Auto) 76.4 H, Lymph % (Auto) 18.0L, [place] % (Auto) 4.7, Eos % (Auto) 0.2, Baso % (Auto) 0.4, Absolute Neuts (auto)9.8 H, Absolute Lymphs (auto) 2.32, Nucleated RBC % 0, Platelet Estimate ADEQUATE, Plt Morphology Comment CLUMPED 11/23/22 03:35: Sodium 138, Potassium 3.6, Chloride 106, Carbon Dioxide 23.0, Anion Gap 9, BUN 12, Creatinine 0.66, Estim Creat Clear Calc 119.10, Est GFR (MDRD) Af Amer 141, Est GFR (MDRD) Non-Af 116, BUN/Creatinine Ratio 18.2, Glucose 186 H, Calcium 8.7, Phosphorus 2.4 L, Magnesium 2.2 11/23/22 03:50: POC Glucose 160 H Physical Exam Narrative GENERAL: cooperative HEENT: Atraumatic; normocephalic EYES; Anicteric, Normal Conjunctiva NECK; supple, normal thyroid, RESPIRATORY: Diminished to auscultation CARDIOVASCULAR: Regular S1 S2, GI: soft, normoactive bowel sounds, : No Renal angle tenderness; EXTREMITIES: No edema, no clubbing, MUSCULOSKELETAL: no muscle wasting NEURO: Awake; no lateralizing signs. SKIN: No Rash PSYCH; Flat affect Assessment & Plan Assessment/Plan (1) DKA (diabetic ketoacidoses): PLAN: Plan Patient is a 22-year-old lady with history of diabetes mellitus type 1 presentedwith intractable nausea vomiting diagnosed with DKA admitted to the intensive care unit where patient is currently being 1. Diabetic ketoacidosis ? Patient has been admitted to the intensive care unit management IV fluids, systemic insulin, serial monitoring of electrolytes and correction of electrolyte abnormalities. Patient progressed being monitored with every 4 BMP 2. Acute kidney injury ? Patient baseline creatinine 0.48 from BMP drawn on 11/07/2021. Creatinine on admission was 1.12. Patient has been started on IV fluids serial monitoring of electrolytes ordered 3. Depression with anxiety ? Patient is on as needed hydroxyzine 4. Mild intermittent asthma ? Aerosol treatments as needed 5. Occasional use of marijuana ? Cessation encouraged 6. DVT prophylaxis - On enoxaparin 7. Suspected acute cystitis ? Patient started on Rocephin urine culture sent Time spent in the patient's overall evaluation,decision-making process, review of diagnostic data, adjustment of management, discussion with other providers, nursing nursing and ancillary staff involved in patient's care documentation, 35Minutes Charges/Coding Visit Charges Inpatient E&M: 82995 Subs Hosp L2 11/23/22 0844 <Electronically signed by Jackeline Akhtar MD> Cosigner Signature (if applicable): CC: ~ Signed [facility] Work Phone: 1(293) 823-327105-05-[address] Akhtar [facility] November 22, 2022 8:44am Note Date/Time November 22, 2022 7:23am [facility] Medical Records Department [address] [place] [address] Progress Note - Hospitalist 11/22/22 0720 MR#: [id number] Acct: [id number] Name: KALIE DESIR Rep #:[id number] : 2000 22 From: Jackeline Akhtar MD PCP: Dr. Erika Sen MD Status:ADM I N Location: ICU CVU20 2-1 Reason for Visit Reason for Visit: Diagnoses Type 2 diabetes mellitus with ketoacidosis without coma (11/21/22) Subjective Subjective Patient is a 22-year-old lady with history of diabetes mellitus type 1 presentedwith intractable nausea vomiting diagnosed with DKA admitted to the intensive care unit where patient is currently being managed Objective Data Objective Data Vital Signs: Vital Signs Temp Pulse Resp BP Pulse Ox O2 Del Method 99.3 F H 100 21 H 118/64 99 Room Air 11/22/22 07:00 11/22/22 07:00 11/22/22 07:00 11/22/22 07:00 11/22/22 07:00 11/22/22 07:00 Oxygen Delivery Method Room Air Weight: 57.4 kg Body Mass Index (BMI) 25.5 Intake & Output: Intake and Output for Last 24 Hours 11/20/22 11/21/22 11/22/22 23:59 23:59 23:59 Intake Total 2022.94 / 2022.94 921.23 / 921.23 Output Total 400 / 400 0 / 0 Balance 1622.94 / 1622.94 921.23 / 921.23 Lab / Micro Data Result Diagrams: 11/22/22 05:10 11/22/22 04:00 Labs: Laboratory Results - last 24 hr 11/21/22 03:40: Urine Color Yellow, Urine Clarity Clear, Urine pH 6.0, Ur Specific [place] 1.020, Urine Protein 100 H, Urine Glucose (UA) 1000 H, Urine Ketones 150 A*, Urine Occult Blood 25 H, Urine Nitrite Positive H, Urine Bilirubin Negative, Urine Urobilinogen Normal, Ur Leukocyte Esterase 25 H, UrineRBC 0-5 SEEN, Urine WBC 0 SEEN, Ur Squamous Epith Cells 0-5 SEEN, Urine BacteriaRARE, Urine Mucus 1+ 11/21/22 03:40: Urine Opiates Screen NEGATIVE, Urine Methadone Screen NEGATIVE, Ur Barbiturates Screen NEGATIVE, Ur Phencyclidine Scrn NEGATIVE, Ur AmphetaminesScreen NEGATIVE, MDMA (Ecstasy) Screen NEGATIVE, U Benzodiazepines Scrn NEGATIVE, Urine Cocaine Screen NEGATIVE, U Cannabinoids Screen POSITIVE H, Ur Drug Screen Comment 11/21/22 11:35: Procalcitonin 0.06 11/21/22 17:11: POC Glucose 431 H 11/21/22 17:35: WBC 21.0 H, RBC 5.38, Hgb 15.2 H, Hct 46.6, MCV 86.6, MCH 28.3, MCHC 32.6, RDW Std Deviation 39.8, RDW Coeff of Marilynn 12.8, Plt Count 440, MPV 9.4, Immature Gran % (Auto) 0.600, Neut % (Auto) 95.2 H, Lymph % (Auto) 2.9 L, [place] % (Auto) 1.0, Eos % (Auto) 0.0, Baso % (Auto) 0.3, Absolute Neuts (auto) 20.0 H, Absolute Lymphs (auto) 0.61 L, Nucleated RBC % 0, Differential Comment SCANNED 11/21/22 17:35: Sodium 137, Potassium 4.0, Chloride 98, Carbon Dioxide 15.0 L, Anion Gap 24 H, BUN 20 H, Creatinine 1.12 H, Estim Creat Clear Calc 77.03, Est GFR (MDRD) Af Amer 77, Est GFR (MDRD) Non-Af 63, BUN/Creatinine Ratio 17.9, Glucose 452 H*, Calcium 10.2 H, Total Bilirubin 0.80, AST 14 L, ALT 24, AlkalinePhosphatase 110, Total Protein 9.3 H, Albumin 5.0, Globulin 4.3 H, Albumin/Globulin Ratio 1.2, Lipase 10 L 11/21/22 17:35: Lactic Acid 3.4 H* 11/21/22 17:35: Acetone Level MODERATE H 11/21/22 17:35: Phosphorus 5.7 H, Magnesium 2.1 11/21/22 20:15: POC Glucose 458 H* 11/21/22 21:21: POC Glucose 357 H 11/21/22 22:25: POC Glucose 321 H 11/21/22 23:06: POC Glucose 299 H 11/22/22 00:33: POC Glucose 226 H 11/22/22 00:40: Sodium 143, Potassium 3.4 L, Chloride 108 H, Carbon Dioxide 16.0L, Anion Gap 19 H, BUN 20 H, Creatinine 0.88, Estim Creat Clear Calc 98.04, Est GFR (MDRD) Af Amer 101, Est GFR (MDRD) Non-Af 84, BUN/Creatinine Ratio 22.8 H, Glucose 249 H, Calcium 9.3 11/22/22 00:40: Lactic Acid 1.4 11/22/22 00:40: Phosphorus 3.0, Magnesium 2.0 11/22/22 01:53: POC Glucose 242 H 11/22/22 02:56: POC Glucose 238 H 11/22/22 03:40: Urine Test Negative 11/22/22 04:00: Sodium 143, Potassium 3.1 L, Chloride 109 H, Carbon Dioxide 20.0L, Anion Gap 14, BUN 19 H, Creatinine 0.93, Estim Creat Clear Calc 92.77, Est GFR (MDRD) Af Amer 95, Est GFR (MDRD) Non-Af 79, BUN/Creatinine Ratio 20.5 H, Glucose 258 H, Calcium 9.1 11/22/22 04:03: POC Glucose 251 H 11/22/22 05:10: WBC 14.2 H, RBC 4.52, Hgb 12.7, Hct 37.4, MCV 82.7, MCH 28.1, MCHC 34.0, RDW Std Deviation 38.5, RDW Coeff of Marilynn 12.9, Plt Count 425, MPV 8.8, Immature Gran % (Auto) 0.400, Neut % (Auto) 89.1 H, Lymph % (Auto) 6.7 L, [place] % (Auto) 3.7, Eos % (Auto) 0.0, Baso % (Auto) 0.1, Absolute Neuts (auto) 12.6 H, Absolute Lymphs (auto) 0.95, Nucleated RBC % 0 11/22/22 05:10: POC Glucose 175 H 11/22/22 06:21: POC Glucose 121 H Physical Exam Narrative GENERAL: cooperative HEENT: Atraumatic; normocephalic EYES; Anicteric, Normal Conjunctiva NECK; supple, normal thyroid, RESPIRATORY: Diminished to auscultation CARDIOVASCULAR: Regular S1 S2, GI: soft, normoactive bowel sounds, : No Renal angle tenderness; EXTREMITIES: No edema, no clubbing, MUSCULOSKELETAL: no muscle wasting NEURO: Awake; no lateralizing signs. SKIN: No Rash PSYCH; Flat affect Assessment & Plan Assessment/Plan (1) DKA (diabetic ketoacidoses): PLAN: Plan Patient is a 22-year-old lady with history of diabetes mellitus type 1 presentedwith intractable nausea vomiting diagnosed with DKA admitted to the intensive care unit where patient is currently being 1. Diabetic ketoacidosis ? Patient has been admitted to the intensive care unit management IV fluids, systemic insulin, serial monitoring of electrolytes and correction of electrolyte abnormalities. Patient progressed being monitored with every 4 BMP 2. Acute kidney injury ? Patient baseline creatinine 0.48 from BMP drawn on 11/07/2021. Creatinine on admission was 1.12. Patient has been started on IV fluids serial monitoring of electrolytes ordered 3. Depression with anxiety ? Patient is on as needed hydroxyzine 4. Mild intermittent asthma ? Aerosol treatments as needed 5. Occasional use of marijuana ? Cessation encouraged 6. DVT prophylaxis - On enoxaparin Time spent in the patient's overall evaluation,decision-making process, review of diagnostic data, adjustment of management, discussion with other providers, nursing nursing and ancillary staff involved in patient's care documentation, 55Minutes Charges/Coding Visit Charges Inpatient E&M: 46556 Subs Hosp L3 11/22/22 0844 <Electronically signed by Jackeline Akhtar MD> Cosigner Signature (if applicable): CC: ~ Signed [facility] Work Phone: [phone]) 773-179905-04-[address] Ruiz [facility] November 21, 2022 9:47pm Note Date/Time November 21, 2022 5:36pm [facility] Medical Records Department [address] [place] [address] Emergency Department Summary 11/21/22 MR#: [id number] Acct: [id number] Name: KALIE DESIR Rep #:[id number] : 2000 22 From: Naveed MAN PCP: Dr. Erika Sen MD Status:ADM I N Location: ICU CVICU20 2-1 HPI <DONOVAN Billingsley - Last Filed: 11/21/22 19:46> History of Present Illness Chief Complaint: Hyperglycemia Narrative Narrative: Patient is a 22-year-old female with history of type 1 diabetes since 9 years old who presents to the emergency department with nausea, vomiting, generalized abdominal pain that began roughly around 3 AM this morning. Patient states her younger sister did have a stomachache however does not have nausea vomiting diarrhea. Patient states that she cannot stop vomiting, states that her sugar read high on the monitor. Here she was greater than 470. She feels dehydrated,and is here for evaluation. [facility] <DONOVAN Billingsley - Last Filed: 11/21/22 19:46> [facility] Medical History Anxiety and depression Asthma Diabetes type 1, controlled History of marijuana use Implanon in place Insulin pump titration Presence of insulin pump Home Medications albuterol sulfate 90 mcg/actuation aerosol inhaler (Ventolin HFA) 2 puff inhalation Q4H PRN PRN Sob &/Or Wheezing 08/25/18 [History Last Taken 05/12/19] pen needle, diabetic 32 gauge x 5/32 (BD Ultra-Fine Opal Pen Needle) #120 ea 05/19/20 [Rx Last Taken Unknown] Ketone Urine Test (acetone (urine) test) #50 ea 11/05/21 [Rx Last Taken Unknown] FreeStyle Daniela 14 Day Sensor (flash glucose sensor) #2 ea 11/07/21 [Rx Last Taken Unknown] hydroxyzine pamoate 25 mg capsule (Vistaril) 25 mg PO QHS #30 caps 02/07/22 [Rx Last Taken Unknown] blood-glucose sensor (Dexcom G6 Sensor device) #10 ea 09/26/22 [Rx Last Taken Unknown] blood-glucose transmitter (Dexcom G6 Transmitter device) #1 ea 09/26/22 [Rx Last Taken Unknown] insulin aspart U-100 100 unit/mL subcutaneous solution 100 unit continuous subcutaneous infusion .continuous #90 mL 09/26/22 [Rx Last Taken Unknown] potassium citrate 99 mg capsule 99 mg PO DAILY 09/26/22 [History Last Taken Unknown] insulin pump cart,automated,BT (Omnipod 5 G6 Pods (Gen 5) subcutaneous cartridge) #45 ea 11/08/22 [Rx Last Taken Unknown] insulin pump cart,automated,BT (Omnipod 5 G6 Pods (Gen 5) subcutaneous cartridge) #10 ea 11/15/22 [Rx Last Taken Unknown] insulin pump cartridge,automated dose,BT with controller subcutaneous (Omnipod 5G6 Intro Kit (Gen 5) subcutaneous cartridge with controller) #1 ea 11/15/22 [Rx Last Taken Unknown] fluticasone propionate 50 mcg/actuation nasal spray,suspension intranasal 11/21/22 [History Last Taken Unknown] Allergy/AdvReac Type Severity Reaction Status Date / Time bee venom protein (honey bee) Allergy Severe Anaphylaxis Verified 11/21/22 17:08 [bee stings] Penicillins Allergy Unknown Verified 11/21/22 17:08 Sulfa (Sulfonamide Allergy Unknown Verified 11/21/22 17:08 Antibiotics) prednisone AdvReac Vomiting Verified 11/21/22 17:08 Family History (Updated 11/21/22 @ 19:[address] Delia Navarro MD) Grandmother Diabetes Sister Asthma Brother Asthma Mother Heart disease Surgical History History of placement of ear tubes Social History (Updated 11/21/22 @ 19:[address] Delia Navarro MD) household members: family Smoking Status: Never smoker second hand exposure: No alcohol intake: never substance use type: other details: Cannabis, last use ~ 1 month prior, ingested. ROS <DONOVAN Billingsley - Last Filed: 11/21/22 19:46> ROS ED ROS Narrative Constitutional: Negative for fever, chills, weight loss, weakness Eyes: Negative for vision loss, vision change, double vision ENT: Negative for any sore throat, ear pain, congestion Cardiovascular: Negative for any chest pain, tightness, palpitations Respiratory: Negative for any cough, sputum production, hemoptysis, dyspnea, dyspnea on exertion, orthopnea Gastrointestinal: Negative for any constipation, blood in stool, blood in vomit. Positive for abdominal pain, nausea, vomiting : Negative for any urinary frequency, dysuria, retention, blood in urine Muscle skeletal: Negative for any muscle joint pain, stiffness, myalgias, arthralgias, neck pain, back pain Neurological: Negative for any headache, syncope, numbness or tingling, dizziness Skin: Negative for any rashes, lumps, itching, abrasions, lacerations Psychiatric: Negative for any depression, anxiety, stress, suicidal ideation, homicidal ideation Hematologic: Negative for any easy bruising, excessive bruising, easy bleeding Allergies: Negative for any eczema, hives, rash EXAM <DONOVAN Billingsley - Last Filed: 11/21/22 19:46> Physical Exam Narrative Exam Narrative: Vital signs reviewed. Patient slightly tachycardic, I do smell ketones upon initial examination HEET: Head normocephalic atraumatic, TMs clear bilaterally. Posterior pharynx is clear, dry mucous membranes. Nares clear bilaterally. Neck: Supple with no lymphadenopathy or tenderness. No signs of meningismus, negative jolt sign. Cardiac: Regular rate and rhythm no murmurs gallops or rubs, equal peripheral pulses bilaterally. Respiratory: Lungs clear to auscultation bilaterally. No chest tenderness. Tachypneic Abdomen: Soft, nondistended. No abdominal bruit or pulsatile masses. No hepatosplenomegaly. Active bowel sounds in all quadrants, tenderness throughoutthe entire abdomen, abdomen is soft, no peritoneal signs. Extremities: No peripheral edema, no signs of gross trauma or deformity. Activefull range of motion of all extremities. Neuro: Cranial nerves II through XII intact, no focal neurological deficits. Skin: Clean dry and intact with no rash, purpura, petechiae, vesicles or pustules. Backs/flank: No CVA tenderness, no midline spinal tenderness, no deformity. Psych: Normal mood and affect. No SI, HI or acute psychosis. Const Vital Signs: 11/21/22 17:04 Temperature 97.7 F L Temperature Source Temporal Pulse Rate 110 H Respiratory Rate 18 Blood Pressure 122/80 H Blood Pressure Mean 94 Pulse Ox 98 Positive well nourished and well developed General Appearance ED: well developed <Dr. Lance Ruiz MD - Last Filed: 11/21/22 21:47> Physical Exam Const Vital Signs: 11/21/22 17:04 Temperature 97.7 F L Temperature Source Temporal Pulse Rate 110 H Respiratory Rate 18 Blood Pressure 122/80 H Blood Pressure Mean 94 Pulse Ox 98 [facility] <DONOVAN Billingsley - Last Filed: 11/21/22 19:46> [facility] Lab Data Labs: Laboratory Results - last 24 hr 11/21/22 11/21/22 11/21/22 17:11 17:35 17:35 WBC 21.0 H RBC 5.38 Hgb 15.2 H Hct 46.6 MCV 86.6 MCH 28.3 MCHC 32.6 RDW Std Deviation 39.8 RDW Coeff of Marilynn 12.8 Plt Count 440 MPV 9.4 Immature Gran % (Auto) 0.600 Neut % (Auto) 95.2 H Lymph % (Auto) 2.9 L [place] % (Auto) 1.0 Eos % (Auto) 0.0 Baso % (Auto) 0.3 Absolute Neuts (auto) 20.0 H Absolute Lymphs (auto) 0.61 L Nucleated RBC % 0 Differential Comment SCANNED Sodium 137 Potassium 4.0 Chloride 98 Carbon Dioxide 15.0 L Anion Gap 24 H BUN 20 H Creatinine 1.12 H Estim Creat Clear Calc 77.03 Est GFR (MDRD) Af Amer 77 Est GFR (MDRD) Non-Af 63 BUN/Creatinine Ratio 17.9 Glucose 452 H* Lactic Acid Calcium 10.2 H Phosphorus Magnesium Total Bilirubin 0.80 AST 14 L ALT 24 Alkaline Phosphatase 110 Total Protein 9.3 H Albumin 5.0 Globulin 4.3 H Albumin/Globulin Ratio 1.2 Lipase 10 L Acetone Level POC Glucose 431 H 11/21/22 11/21/22 11/21/22 17:35 17:35 17:35 WBC RBC Hgb Hct MCV MCH MCHC RDW Std Deviation RDW Coeff of Marilynn Plt Count MPV Immature Gran % (Auto) Neut % (Auto) Lymph % (Auto) [place] % (Auto) Eos % (Auto) Baso % (Auto) Absolute Neuts (auto) Absolute Lymphs (auto) Nucleated RBC % Differential Comment Sodium Potassium Chloride Carbon Dioxide Anion Gap BUN Creatinine Estim Creat Clear Calc Est GFR (MDRD) Af Amer Est GFR (MDRD) Non-Af BUN/Creatinine Ratio Glucose Lactic Acid 3.4 H* Calcium Phosphorus 5.7 H Magnesium 2.1 Total Bilirubin AST ALT Alkaline Phosphatase Total Protein Albumin Globulin Albumin/Globulin Ratio Lipase Acetone Level MODERATE H POC Glucose Treatment and Re-Evaluation :: Patient appears to be in mild distress secondary to nausea, vomit, abdominal pain. Upon initial evaluation, patient is concerned that she might be in DKA. Patient did have ketones that I was able to smell in the room. Patient did receive a full DKA work-up. Patient was given IV fluids, patient's laboratory values showed a leukocytosis with a white blood count 21,000. She has had this in the past whenever she doeshave DKA. Patient's chemistries show a normal sodium, creatinine was slightly elevated 1.12, patient is normally 0.5. Patient's blood glucose was 452 with a lactic acid at 3.4. Patient acetone level was moderate. She has been unable toprovide a urinary sample however she states that the fluids did cause her and she did go outside of the bed onto the floor. She states that she cannot get tothe bathroom in time. Patient was started on IV insulin drip. Initial diagnosis included gastroenteritis, acute cholecystitis, bowel obstruction. After patient received IV fluids, IV morphine, IV Zofran. Patient was reevaluated, patient's abdomen is much less tender. I believe the leukocytosis is secondary to the nausea, vomiting, DKA. Patient has had abdominal pain whilein DKA again. Patient started insulin drip, will need to be admitted to the hospital. Patient be admitted to ICU. <Dr. Lance Ruiz MD - Last Filed: 11/21/22 21:47> [facility] Narrative Medical decision making narrative: I have personally performed a face to face assessment of the patient and have reviewed the STALIN Note. I performed a substantive portion of the visit including all aspects of the following. My durand findings include: History: Patient presents with nausea vomiting abdominal pain. She states yesterday she was feeling fine. Her new her insulin pump stopped working and she did not have insulin for about 12 hours. She is not sure of her basal rate but states she did uses about 40 units total a day. She started just feel bad with this. When she went home she did put on a new insulin pump and she states it is working and functioning normally. But her nausea vomiting and GI upset have progressed. She has been still trying to eat and drink. She has not lost her appetite but she cannot keep anything down. She has had DKA before and is not sure if this feels the same. Exam: Patient awake alert. She does appear to have somewhat dry mucous membranes. Heart rate is mildly tachycardic. Abdomen is soft. Mild epigastrictenderness but no significantly distended abdomen or tenderness. She has vomited but no blood is seen. Medical Decision Making: Patient will be given IV fluids, meds for pain nausea. Blood work is ordered. These are pending at this time. Blood work is consistent with diabetic ketoacidosis. She is given IV fluids andinsulin drip ordered. At this point the patient lost her IV. She had had 1 in her left arm it was flowing but slowly. There were multiple times to get an IV. I went in to talk with her about doing a central line. However there was a external jugular. Nurse was able to place an IV there. I think this is better than central line at this point as this patient just started getting sick yesterday and she will probably turn around very quickly. Abdomen is much more benign. I think her white count is from vomiting and demargination. I do not think she needs CAT scan of her abdomen. With repeat visits, adjusting therapy, talking with consultants, critical care time of 40 minutes. Lab Data Labs: Laboratory Results - last 24 hr 11/21/22 11/21/22 11/21/22 17:11 17:35 17:35 WBC 21.0 H RBC 5.38 Hgb 15.2 H Hct 46.6 MCV 86.6 MCH 28.3 MCHC 32.6 RDW Std Deviation 39.8 RDW Coeff of Marilynn 12.8 Plt Count 440 MPV 9.4 Immature Gran % (Auto) 0.600 Neut % (Auto) 95.2 H Lymph % (Auto) 2.9 L [place] % (Auto) 1.0 Eos % (Auto) 0.0 Baso % (Auto) 0.3 Absolute Neuts (auto) 20.0 H Absolute Lymphs (auto) 0.61 L Nucleated RBC % 0 Differential Comment SCANNED Sodium 137 Potassium 4.0 Chloride 98 Carbon Dioxide 15.0 L Anion Gap 24 H BUN 20 H Creatinine 1.12 H Estim Creat Clear Calc 77.03 Est GFR (MDRD) Af Amer 77 Est GFR (MDRD) Non-Af 63 BUN/Creatinine Ratio 17.9 Glucose 452 H* Lactic Acid Calcium 10.2 H Phosphorus Magnesium Total Bilirubin 0.80 AST 14 L ALT 24 Alkaline Phosphatase 110 Total Protein 9.3 H Albumin 5.0 Globulin 4.3 H Albumin/Globulin Ratio 1.2 Lipase 10 L Acetone Level POC Glucose 431 H 11/21/22 11/21/22 11/21/22 17:35 17:35 17:35 WBC RBC Hgb Hct MCV MCH MCHC RDW Std Deviation RDW Coeff of Marilynn Plt Count MPV Immature Gran % (Auto) Neut % (Auto) Lymph % (Auto) [place] % (Auto) Eos % (Auto) Baso % (Auto) Absolute Neuts (auto) Absolute Lymphs (auto) Nucleated RBC % Differential Comment Sodium Potassium Chloride Carbon Dioxide Anion Gap BUN Creatinine Estim Creat Clear Calc Est GFR (MDRD) Af Amer Est GFR (MDRD) Non-Af BUN/Creatinine Ratio Glucose Lactic Acid 3.4 H* Calcium Phosphorus 5.7 H Magnesium 2.1 Total Bilirubin AST ALT Alkaline Phosphatase Total Protein Albumin Globulin Albumin/Globulin Ratio Lipase Acetone Level MODERATE H POC Glucose <Dr. Lance Ruiz MD - Last Filed: 11/21/22 21:47> Critical Care Time Critical Care Time: Yes Critical care time (excluding procedures): 30-74 minutes, Discussing w/Patient &/or Family/Practice Specialist, Discussing w/Consultants, Arranging Admission or Transfer, Performing Direct Patient Care at Bedside and - (40 minutes see MDM) Discharge Plan Dx/Rx/DC Orders Clinical Impression: Diabetic ketoacidosis, Leukocytosis, unspecified, Nausea & vomiting Disposition Disposition: Acute Care Hospital [facility] Discharge Date/Time: 11/21/22 20:28 What to do if you have Problems For any increased pain, shortness of breath, bleeding, nausea or vomiting, chestpain, or any unexpected problems, contact your Primary Care Provider. Call [facility] ([phone]) or report to the closest Emergency Room. Call 911 if necessary. 11/21/221945 <Electronically signed by Naveed MAN> Cosigner Signature (if applicable): 11/21/222146 <Electronically signed by Lance Ruiz MD> CC: Dr. Erika Sen MD ~ Signed [facility] Work Phone: 1(161) 924-415905-04-2023 History and physical note Author Dr. Navarro [facility] November 21, 2022 7:57pm Note Date/Time November 21, 2022 7:18pm [facility] Medical Records Department [address] [place] [address] H&P Exam - Hospitalist 11/21/22 1914 MR#: [id number] Acct: [id number] Name: KALIE DESIR Rep #:[id number] : 2000 22 From: Delia Navarro MD PCP: Dr. Erika Sen MD Status:ADM I N Location: ICU CVICU20 2-1 HPI - General General Date of Admission: 11/21/22 Date of Service: 11/21/22 Chief Complaint: Nausea, emesis, abdominal discomfort, elevated BS. HPI Narrative The patient is a 22 y/o F w/ PMHx: Anxiety and Depression, Asthma with allergic rhinitis, IDDM with insulin pump diagnosed at age 9 who presents to the [facility] ED onb 11/21/22 with history of onset nausea, emesis, generalized abdominal discomfort starting at ~ 3 am on day of presentation with reported younger sister with recent illness but no specific GI component with onset hyperglycemiaon her monitor with persistent nausea and intractable emesis prompting eventual ED evaluation. She notes that her sister primarily had upper respiratory type symptoms and that she herself has not had any of these nor any fevers or chills or any issues with urination. She does admit to polydipsia. Work-up in the ED included T97.7, heart rate 110, BP 122/80, respiratory rate 18, 98% on room air,CBC with WC 21, hemoglobin 15.2, platelet 440 with left shift and lymphopenia, CMP with, lactic 15, anion gap 24, BUN/current 20/1.12, glucose 452, lactic acid3.4, calcium 10.2, hepatic profile not marked appearing, lipase 10, acetone moderate. In the ED patient ministered 1 L normal saline, morphine 4 mg IV x1, Zofran 4 mg IV x1 initiated on insulin drip. [facility] Medical History Anxiety and depression Asthma Diabetes type 1, controlled History of marijuana use Implanon in place Insulin pump titration Presence of insulin pump Home Medications albuterol sulfate 90 mcg/actuation aerosol inhaler (Ventolin HFA) 2 puff inhalation Q4H PRN PRN Sob &/Or Wheezing 08/25/18 [History Last Taken 05/12/19] pen needle, diabetic 32 gauge x 5/32 (BD Ultra-Fine Opal Pen Needle) #120 ea 05/19/20 [Rx Last Taken Unknown] Ketone Urine Test (acetone (urine) test) #50 ea 11/05/21 [Rx Last Taken Unknown] FreeStyle Daniela 14 Day Sensor (flash glucose sensor) #2 ea 11/07/21 [Rx Last Taken Unknown] hydroxyzine pamoate 25 mg capsule (Vistaril) 25 mg PO QHS #30 caps 07/21/22 [Rx Last Taken Unknown] blood-glucose sensor (Dexcom G6 Sensor device) #10 ea 09/26/22 [Rx Last Taken Unknown] blood-glucose transmitter (Dexcom G6 Transmitter device) #1 ea 09/26/22 [Rx Last Taken Unknown] insulin aspart U-100 100 unit/mL subcutaneous solution 100 unit continuous subcutaneous infusion .continuous #90 mL 09/26/22 [Rx Last Taken Unknown] potassium citrate 99 mg capsule 99 mg PO DAILY 09/26/22 [History Last Taken Unknown] insulin pump cart,automated,BT (Omnipod 5 G6 Pods (Gen 5) subcutaneous cartridge) #45 ea 11/08/22 [Rx Last Taken Unknown] insulin pump cart,automated,BT (Omnipod 5 G6 Pods (Gen 5) subcutaneous cartridge) #10 ea 11/15/22 [Rx Last Taken Unknown] insulin pump cartridge,automated dose,BT with controller subcutaneous (Omnipod 5G6 Intro Kit (Gen 5) subcutaneous cartridge with controller) #1 ea 11/15/22 [Rx Last Taken Unknown] fluticasone propionate 50 mcg/actuation nasal spray,suspension intranasal 11/21/22 [History Last Taken Unknown] Allergy/AdvReac Type Severity Reaction Status Date / Time bee venom protein (honey bee) Allergy Severe Anaphylaxis Verified 11/21/22 17:08 [bee stings] Penicillins Allergy Unknown Verified 11/21/22 17:08 Sulfa (Sulfonamide Allergy Unknown Verified 11/21/22 17:08 Antibiotics) prednisone AdvReac Vomiting Verified 11/21/22 17:08 Family History (Updated 11/21/22 @ 19:[address] Delia Navarro MD) Grandmother Diabetes Sister Asthma Brother Asthma Mother Heart disease other (Denies knowledge of her paternal family history.) Surgical History History of placement of ear tubes Social History (Updated 11/21/22 @ 19:[address] Delia Navarro MD) household members: family Smoking Status: Never smoker second hand exposure: No alcohol intake: never substance use type: other details: Cannabis, last use ~ 1 month prior, ingested. ROS ROS Narrative Admission Review of Systems: CONSTITUTIONAL: No weight loss, fever, chills, + weakness or fatigue. HEENT: Eyes: No visual loss, blurred vision, double vision or yellow sclerae. Ears, Nose, Throat: No hearing loss, sneezing, congestion, runny nose or sore throat. SKIN: No rash or itching, lesions, wounds. CARDIOVASCULAR: No chest pain, chest pressure or chest discomfort, palpitations,edema, orthopnea, syncopal events. RESPIRATORY: No shortness of breath, cough or sputum, wheezing, hemoptysis. GASTROINTESTINAL: + anorexia, nausea, vomiting, abdominal discomfort. No diarrhea, melena, BRBPR. GENITOURINARY: No dysuria, frequency, urgency or retention. NEUROLOGICAL: No headache, dizziness, syncope, paralysis, ataxia, numbness or tingling in the extremities, focal weakness, change in bowel or bladder control,seizure. MUSCULOSKELETAL: + muscle, back pain, joint pain or stiffness. HEMATOLOGIC: No anemia, bleeding or bruising. LYMPHATICS: No enlarged nodes. No history of splenectomy. PSYCHIATRIC: + history of depression or anxiety. ENDOCRINOLOGIC: No reports of sweating, cold or heat intolerance. No polyuria orpolydipsia. ALLERGIES: + history of asthma, rhinitis. Vital Signs Vital Signs Vital Signs: 11/21/22 17:04 Temperature 97.7 F L Temperature Source Temporal Pulse Rate 110 H Respiratory Rate 18 Blood Pressure 122/80 H Blood Pressure Mean 94 Pulse Ox 98 Weight Weight: 138 lb 14.259 oz Body Mass Index (BMI) 28.0 Physical Exam Narrative Physical Examination: General: Awake, alert, oriented x 3 and cooperative, laying in the ED bed, fatigued and ill-appearing, intermittently dry heaving during evaluation. Skin: Normal color, normal turgor, no icterus, no cyanosis. HEENT: AT/NC, EOMI, PERRLA, dry MM, no carotid bruits or JVD noted. Lungs: Mildly diminished, greater bases, appropriate effort, no rales, ronchi orwheezing. Heart: Tachycardic with regular rhythm; no gallop, rub audible. Abdomen: Soft, mild generalized discomfort but no rebound or guarding, ND, hyperactive BS, no HSM. Extremities: No cyanosis, clubbing, or edema. Neurological: Patient awake, alert, oriented as noted, cognitive function intact; pupils equally reactive to light and accommodation, cranial nerves II-XII grossly normal, moving all 4 extremities, no focal deficits, strength moderately to severely global decrease secondary to acute presentation. Psychiatric: Affect appears fatigued, ill-appearing, no acute evidence of depressive or anxiety feelings but does have underlying history. Results Lab / Micro Data Result Diagrams: 11/21/22 17:35 11/21/22 17:35 Labs: Laboratory Results - last 24 hr 11/21/22 17:11: POC Glucose 431 H 11/21/22 17:35: WBC 21.0 H, RBC 5.38, Hgb 15.2 H, Hct 46.6, MCV 86.6, MCH 28.3, MCHC 32.6, RDW Std Deviation 39.8, RDW Coeff of Marilynn 12.8, Plt Count 440, MPV 9.4, Immature Gran % (Auto) 0.600, Neut % (Auto) 95.2 H, Lymph % (Auto) 2.9 L, [place] % (Auto) 1.0, Eos % (Auto) 0.0, Baso % (Auto) 0.3, Absolute Neuts (auto) 20.0 H, Absolute Lymphs (auto) 0.61 L, Nucleated RBC % 0, Differential Comment SCANNED 11/21/22 17:35: Sodium 137, Potassium 4.0, Chloride 98, Carbon Dioxide 15.0 L, Anion Gap 24 H, BUN 20 H, Creatinine 1.12 H, Estim Creat Clear Calc 77.03, Est GFR (MDRD) Af Amer 77, Est GFR (MDRD) Non-Af 63, BUN/Creatinine Ratio 17.9, Glucose 452 H*, Calcium 10.2 H, Total Bilirubin 0.80, AST 14 L, ALT 24, Alkaline Phosphatase 110, Total Protein 9.3 H, Albumin 5.0, Globulin 4.3 H, Albumin/Globulin Ratio 1.2, Lipase 10 L 11/21/22 17:35: Lactic Acid 3.4 H* 11/21/22 17:35: Acetone Level MODERATE H Assessment & Plan Assessment/Plan (1) DKA (diabetic ketoacidoses): PLAN: Plan The patient is a 22 y/o F w/ PMHx: Anxiety and Depression, Asthma with allergic rhinitis, IDDM with insulin pump diagnosed at age 9 who presents to the [facility] ED onb 11/21/22 with history of onset nausea, emesis, generalized abdominal discomfort starting at ~ 3 am on day of presentation with reported younger sister withrecent illness but no specific GI component with onset hyperglycemia on her monitor with persistent nausea and intractable emesis prompting eventual ED evaluation. #1. DKA w/ Diabetes mellitus type I with associated lactic acidosis and leukocytosis suspected reactive, dehydration associated with potential recent Acute Viral Syndrome given history, ill contacts: Patient in the ED administered 1L normal saline bolus and initiated on insulin drip. Will admit to the ICU, continue on insulin drip, check serial K+, glucose w/ IVF changes pending these levels, serial chemistry, obtain mag, phos daily w/ repletion as needed, transition to home insulin pump SC regimen when gap closed with adjustments as needed, hemoglobin A1c requested, nutrition consultation. Encouraged diet and insulin regimen compliance. #2. Acute kidney injury: Secondary to acute presentation #1. Admission BUN/Cr 20/1.1, prior baseline creatinine noted to be primarily 0.5-0.6 over the last 07/23/2022 0.51, will continue to aggressively hydrate, hold nephrotoxic medications and repeat BMP serially given #1. #3. Anxiety and depression: Per current list patient is only on hydroxyzine low- dose nightly, will continue. #4. Chronic asthma with allergic rhinitis: Not on any chronic inhaler, will have as needed albuterol, continue patient home fluticasone regimen, encourage head of bed and I-S. #5. Chart reported Hx Cannabis usage: Will obtain UDS as certainly could contribute to GI presentation. #6. DVT prophylaxis: Lovenox. #7. CODE STATUS: Full code. Admission Evaluation Time spent evaluating chart, patient history, patient evaluation, care planning and discussion with specialists: 60 minutes. Charges/Coding Visit Charges Inpatient E&M: 17203 Init Hosp L2 11/21/221956 <Electronically signed by Delia Navarro MD> Cosigner Signature (if applicable): CC: Dr. Delia Navarro MD; Dr. Erika Sen MD~ Signed [facility] Work Phone: [phone]) 279-504206-13-2022 History of Present illness Narrative* Chasity Hodge PA-C - 12/31/2021 10:50 AM EDT Chief Complaint Patient presents with: Back Pain HPI Kalie Desir is a 21 year old female who presents here today for Above Complaints.. Patient reports back pain for the past 2 weeks. She was seen in [facility] and given medrol reba but due to patient's type 1 DM, she was unable tofinish the pack. Was moving furniture on Friday and Friday and pain started Friday. Has been using ibuprofen. Past medical history, appointments, medications, allergies reviewed. [...] on File Prior to Visit Medication Sig cyclobenzaprine (FLEXERIL) 10 mg tablet Take 1 tablet by mouth three times daily as needed for muscle spasm. albuterol HFA (VENTOLIN HFA) 90 mcg/actuation inhaler Inhale 2 Puffs as instructed every 4 hours asneeded. flash glucose sensor (FREESTYLE DANIELA 14 DAY SENSOR) kit apply 1 SENSOR TO THE BACK OF UPPER ARM. REMOVE AND REPLACE EVERY 14 DAYS. USE WITH DEVICE TO MONITOR BLOOD SUGAR four times a day flash glucose scanning reader (FREESTYLE DANIELA 14 DAY READER) misc For blood sugar checks 4 times aday etonogestrel (NEXPLANON) subdermal implant 68 mg ONCE potassium chloride ER (K-DUR, KLOR-CON) 20 mEq tablet Take 20 mEq by mouth twice daily. Alcohol Swabs (ALCOHOL PREP PADS) padm Apply 1 application to affected area every 4 hours as needed(blood glucose check). Insulin Syringe-Needle U-100 (BD ULTRAFINE INSULIN) 1 mL 31 gauge x 5/16 syrg Supply to be used as directed for insulin administration up to 3 times daily. Insulin Syringe-Needle U-100 (BD INSULIN SYINGE MICROFINE) 0.3 mL 28 syrg Supply to be used as directed. methylPREDNISolone (MEDROL, REBA,) 4 mg Dose-Pack Follow dosing instructions, take with food. (Patient not taking: Reported on 12/31/2021 ) cyclobenzaprine (FLEXERIL) 10 mg tablet Take 1 tablet by mouth at bedtime as needed for muscle spasm. (Patient not taking: Reported on 12/26/2021 ) traZODone (DESYREL) 50 mg tablet Take 1 tablet by mouth daily at bedtime. (Patient not taking: Reported on 12/31/2021 ) insulin glargine (BASAGLAR KWIKPEN U-100 INSULIN) 100 unit/mL (3 mL) Inject 45 Units subcutaneouslydaily at bedtime. Per Endo: Dr. Chow (Patient not taking: Reported on 12/31/2021 ) insulin aspart U-100 (NOVOLOG) 100 unit/mL (3 mL) Inject 30 Units subcutaneously three times daily before meals. Per Endo, Dr. Chow (Patient not taking: Reported on 12/26/2021 ) etonogestrel (NEXPLANON) subdermal implant 68 mg 1 Each by SUBDERMAL route as directed. (Patient not taking: Reported on 07/02/2021 ) Insulin Rincon, Disposable, (OPAL PEN NEEDLE) 32 gauge x 5/32 ndle Use with insulin injections (Patient not taking: Reported on 12/26/2021 ) blood sugar diagnostic (FREESTYLE TEST) test strip Use as instructed 10 times daily (Patient not taking: Reported on 12/26/2021 ) glucagon, human recombinant, (GLUCAGON EMERGENCY KIT, HUMAN,) 1 mg injection Inject 1 mg intramuscularly as directed. Use when pt is unconsciousness or having a seizure. (Patient not taking: Reportedon 12/26/2021 ) Inhalational Spacing Device (AEROCHAMBER MASK LARGE) spcr 1 Device as needed. (Patient not taking: Reported on 12/26/2021 ) Insulin Admin Supplies (NOVOPEN ECHO) inpn Up to 80 units total daily dose. (Patient not taking: Reported on 12/26/2021 ) Blood-Glucose Meter (FREESTYLE LITE METER) monitoring kit Supply to be used as directed. No current facility-administered medications on file prior to visit. Social History Social History Tobacco Use Smoking status: Passive Smoke Exposure - Never Smoker Smokeless tobacco: Never Used Tobacco comment: parents inside/outside Substance Use Topics Alcohol use: No Comment: Stopped Drug use: Yes Types: Marijuana Comment: Hx of marijuana Review of Symptoms REVIEW OF SYSTEMS see hpi EXAM: BP 112/78 (BP Site: Right Arm, BP Position: Sitting, BP Cuff Size: Regular Adult) Pulse 96 Temp36.8 C (98.2 F) Resp 16 Wt 59 kg (130 lb) LMP 09/11/2020 (Exact Date) BMI 26.26 kg/m General Appearance: Well appearing, alert, in no acute distress, well-hydrated, well nourished.. Extremities: No deformities, edema, skin discoloration, clubbing or cyanosis. Good capillary refill. . Musculoskeletal: No joint swelling, deformity, or tenderness. Health Maintenance List URINE ALBUMIN:CREATININE RATIO Never done DILATED RETINAL EXAM Never done DIABETIC FOOT EXAM Never done MENINGOCOCCAL B: Consider based on risk(1 of 2 - Risk Bexsero 2-dose series) Never done LDL CHOLESTEROL due on 2016 SPIROMETRY Never done HIV SCREENING Never done GC (GONORRHEA) SCREENING (18-24) due on 01/09/2019 CHLAMYDIA SCREENING (18-24) due on 01/09/2019 PNEUMOCOCCAL(2 - PCV) due on 01/09/2019 PAP TESTING Never done DEPRESSION SCREENING due on 03/04/2020 HBA1C due on 11/01/2020 COVID-19 VACCINE(1) due on 06/07/2022 INFLUENZA(Season Ended) due on 03/21/2022 ANNUAL PCP TEAM CHRONIC DISEASE VISIT due on 06/07/2022 DTAP,TDAP,TD(2 - Td or Tdap) due on 01/18/2025 HEPATITIS B Completed HPV VACCINE Completed HEPATITIS C SCREENING Completed Data reviewed ASSESSMENT/PLAN: 1. Upper back strain, initial encounter - ICD9: 847.1, ICD10: S29.012A Continue muscle relaxer. Use flexeril as needed. Start Physical Therapy F/u prn. - CONSULT TO PHYSICAL THERAPY Chasity Hodge PA-C [facility] History of Present illness Narrative* Aris Chow APRN.CHANGER FIXER - 12/26/2021 3:47 PM EDT Images from the original note were not included. Subjective HPI HPI Kalie Desir is a 21 year old female who presents today for CC of mid/low back pain, vomit X1 few days ago. This started 4 days ago, noticed after moving furnature. Has tried otc medication for relief. Symptoms are worsened by nothing. Denies injury, changes in urinary/bowel habits. Denies possibility of being . Type one diabetic, reports well controlled. Reports chronic/intermittent numbness/tingling of lower legs. .Patient presents with: Back Pain: vomiting x 4 days not sure why PAST MEDICAL HISTORY Diagnosis Date Asthma Constipation 08/07/2016 Diabetes mellitus type 1 (HCC) Hepatitis A 02/15/2019 PAST SURGICAL HISTORY Procedure Laterality Date ADENOIDECTOMY PRIMARY <AGE 10 age 18 month MYRINGOTOMY W TUBE,BILATERAL(2) age 18 months NEXPLANON INSERTION 07/06/2014 ALLERGIES Melatonin, Penicillins, and Sulfatrim Ds MEDICATIONS albuterol HFA (VENTOLIN HFA) 90 mcg/actuation inhaler Inhale 2 Puffs as instructed every 4 hours asneeded. traZODone (DESYREL) 50 mg tablet Take 1 tablet by mouth daily at bedtime. insulin glargine (BASAGLAR KWIKPEN U-100 INSULIN) 100 unit/mL (3 mL) Inject 45 Units subcutaneouslydaily at bedtime. Per Endo: Dr. Chow flash glucose sensor (FREESTYLE DANIELA 14 DAY SENSOR) kit apply 1 SENSOR TO THE BACK OF UPPER ARM. REMOVE AND REPLACE EVERY 14 DAYS. USE WITH DEVICE TO MONITOR BLOOD SUGAR four times a day flash glucose scanning reader (FREESTYLE DANIELA 14 DAY READER) [facility] [place] For blood sugar checks 4 times aday etonogestrel (NEXPLANON) subdermal implant 68 mg ONCE potassium chloride ER (K-DUR, KLOR-CON) 20 mEq tablet Take 20 mEq by mouth twice daily. Alcohol Swabs (ALCOHOL PREP PADS) padm Apply 1 application to affected area every 4 hours as needed(blood glucose check). Insulin Syringe-Needle U-100 (BD ULTRAFINE INSULIN) 1 mL 31 gauge x 5/16 syrg Supply to be used as directed for insulin administration up to 3 times daily. Insulin Syringe-Needle U-100 (BD INSULIN SYINGE MICROFINE) 0.3 mL 28 syrg Supply to be used as directed. Blood-Glucose Meter (FREESTYLE LITE METER) monitoring kit Supply to be used as directed. methylPREDNISolone (MEDROL, REBA,) 4 mg Dose-Pack Follow dosing instructions, take with food. cyclobenzaprine (FLEXERIL) 10 mg tablet Take 1 tablet by mouth three times daily as needed for muscle spasm. cyclobenzaprine (FLEXERIL) 10 mg tablet Take 1 tablet by mouth at bedtime as needed for muscle spasm. insulin aspart U-100 (NOVOLOG) 100 unit/mL (3 mL) Inject 30 Units subcutaneously three times daily before meals. Per Dr. Geraldo Escobar etonogestrel (NEXPLANON) subdermal implant 68 mg 1 Each by SUBDERMAL route as directed. Insulin Rincon, Disposable, (OPAL PEN NEEDLE) 32 gauge x 5/32 ndle Use with insulin injections blood sugar diagnostic (FREESTYLE TEST) test strip Use as instructed 10 times daily glucagon, human recombinant, (GLUCAGON EMERGENCY KIT, HUMAN,) 1 mg injection Inject 1 mg intramuscularly as directed. Use when pt is unconsciousness or having a seizure. Inhalational Spacing Device (AEROCHAMBER MASK LARGE) spcr 1 Device as needed. Insulin Admin Supplies (NOVOPEN ECHO) inpn Up to 80 units total daily dose. FAMILY HISTORY Problem Relation Age of Onset Hypertension Mother None Father None Maternal Grandmother None Maternal Grandfather Diabetes Paternal Grandmother Hypertension Paternal Grandfather Asthma Brother Allergies Brother Allergies Sister Allergies Sister Social History Tobacco Use Smoking status: Passive Smoke Exposure - Never Smoker Smokeless tobacco: Never Used Tobacco comment: parents inside/outside Substance Use Topics Alcohol use: No Comment: Stopped Drug use: Yes Types: Marijuana Comment: Hx of marijuana Review of Systems Constitutional: Negative for chills, fever and weight loss. Cardiovascular: Negative for leg swelling. Gastrointestinal: Negative for abdominal pain, constipation, diarrhea, nausea and vomiting. Genitourinary: Negative for dysuria, flank pain, frequency, hematuria and urgency. Musculoskeletal: Positive for back pain. Skin: Negative for rash. Neurological: Negative for sensory change and focal weakness. Objective Blood pressure 110/70, pulse 103, temperature 37 C (98.6 F), resp. rate 21, weight 58.5 kg (129 lb), last menstrual period 09/11/2020, SpO2 98 %. Physical Exam Constitutional: General: She is not in acute distress. Appearance: Normal appearance. She is not diaphoretic. Cardiovascular: Pulses: Dorsalis pedis pulses are 2+ on the right side and 2+ on the left side. Posterior tibial pulses are 2+ on the right side and 2+ on the left side. Abdominal: General: Bowel sounds are normal. Palpations: Abdomen is soft. Tenderness: There is no abdominal tenderness. Musculoskeletal: Thoracic back: No swelling, edema, deformity, signs of trauma, lacerations or spasms. Normal range of motion. No scoliosis. Lumbar back: Spasms present. Decreased range of motion. Back: Comments: Lumbar paraspinal muscles tender with palpation Neurological: Mental Status: She is alert and oriented to person, place, and time. Gait: Gait is intact. Gait normal. Deep Tendon Reflexes: Reflex Scores: Patellar reflexes are 2+ on the right side and 2+ on the left side. ASSESSMENT/PLAN: 1. Acute midline low back pain without sciatica - ICD9: 724.2, ICD10: M54.50 steroids and flexeril ordered Severe/worsening s/s go to ER Unable to r/o renal stones, not likely d/t bilat pain. Patient on menses, no ua obtained. - METHYLPREDNISOLONE 4 MG TABLETS IN A DOSE PACK - CYCLOBENZAPRINE 10 MG TABLET Agrees to plan Aris Chow APRN.CNP [facility] of Present illness Narrative* Shanique Pierre Tech (Tech) - 05/05/2020 1:50 PM EDT Radiology Service Progress Note PATIENT NAME: Kalie Desir DATE OF SERVICE: May 05, 2020 TIME: 1:44 PM PATIENT IDENTITY VERIFICATION COMPLETED USING TWO (2) IDENTIFIERS: Name and Date of confirmedby patient verbally. FALL SCREENING: Has the patient had 2 falls in the last year or 1 fall with injury or currently using an Ambulatory Assistive Device (Walker, Cane, Wheelchair, Crutches, etc.)? No PATIENT GENDER DATA: Female. status: : No status: NO. PATIENT RELEVANT IMPLANT DATA REVIEWED: Not Applicable RADIOLOGY DEPARTMENT: General X-ray: Exam(s) Completed: Upper Extremity X- Ray(s): Hand, right : PERIPHERAL IV DATA: Not applicable SIGNED BY: Lyubov rOtiz May 05, 2020 1:44 PM [facility] History of Past illness Narrative* Problem Noted Date Resolved Date Strain of back 07/29/2016 03/04/2019 Cervicalgia 07/29/2016 03/04/2019 documented as of this encounter (statuses as of 12/26/2021) [facility] of Past illness Narrative* Problem Noted Date Resolved Date Strain of back 07/29/2016 03/04/2019 Cervicalgia 07/29/2016 03/04/2019 documented as of this encounter (statuses as of 12/31/2021) [facility] of [facility] illness Narrative* Problem Noted Date Resolved Date Strain of back 07/29/2016 03/04/2019 Cervicalgia 07/29/2016 03/04/2019 documented as of this encounter (statuses as of 01/07/2023) [facility] of [facility] illness Narrative* Problem Noted Date Resolved Date Strain of back 07/29/2016 03/04/2019 Cervicalgia 07/29/2016 03/04/2019 documented as of this encounter (statuses as of 01/16/2023) [facility] of [facility] illness Narrative* Problem Noted Date Resolved Date Strain of back 07/29/2016 03/04/2019 Cervicalgia 07/29/2016 03/04/2019 documented as of this encounter (statuses as of 01/16/2023) [facility] of [facility] illness Narrative* Problem Noted Date Diagnosed Date Resolved Date Strain of back 07/29/2016 03/04/2019 Cervicalgia 07/29/2016 03/04/2019 documented as of this encounter (statuses as of 03/03/2023) [facility] illness Narrative* Problem Noted Date Diagnosed Date Resolved Date Strain of back 07/29/2016 03/04/2019 Cervicalgia 07/29/2016 03/04/2019 documented as of this encounter (statuses as of 03/27/2023) [facility] illness Narrative* Problem Noted Date Diagnosed Date Resolved Date Strain of back 07/29/2016 03/04/2019 Cervicalgia 07/29/2016 03/04/2019 documented as of this encounter (statuses as of 04/07/2023) [facility] Author Nathan Pineda [facility] October 17, 2023 2:30pm Note Date/Time October 17, 2023 2:2 0pm [facility] Medical Records Department [address] [place] [address] Instructions for Home/Discharge Instructions 10/17/23 1420 MR#: [id number] Acct: [id number] Name: KALIE DESIR Rep #:[id number] : 2000 23 From: Nathan Pineda DO PCP: Minnie Hodge Status:ADM I N Discharge Instructions Diet Discharge Diet: - (Resume previous diet) Activity Discharge Activity: Return to Normal Activity Return to work on:: 10/20/23 Weight Bearing Status: Full weight bearing Follow Up Care Test Results: Test results from this visit will be discussed in further detail at your follow- up appointment, if applicable. Discharge Plan Admission Admit Date/Time: 10/16/23 17:37 Primary Reason for Your Visit: Diabetic ketoacidosis Attending Provider: Nathan Pineda Primary Care Provider: Minnie Hodge Consulting Providers: Damien Villagran Instructions Additional Instructions / Restrictions: Please increase your fluid intake over the next 24 to 48 hours Contact your body art technician on Friday to get refills on your insulin pump supplies Discharge Orders/Prescriptions Prescriptions: Continued hydroxyzine pamoate [Vistaril] 25 mg capsule 25 mg PO QHS Qty: 30 6RF (DME) Dexcom G6 Sensor Device See Rx Instructions .Route Qty: 9 1RF Rx Instructions: 1 sensor q 10 days albuterol sulfate [Ventolin HFA] 18 GM HFA aerosol inhaler 2 puff inhalation Q4H PRN (Reason: SHORTNES OF BREATH/WHEEZING) fluticasone propionate 50 mcg/actuation spray,suspension 2 spray INTRANASAL DAILY (DME) Dexcom G6 Transmitter Device See Rx Instructions .Route Qty: 1 3RF Rx Instructions: As directed (DME) pen needle, diabetic [BD Ultra-Fine Opal Pen Needle] 32 gauge x 5/32 needle See Rx Instructions .ROUTE .MEDSUPPLY Qty: 120 5RF Rx Instructions: 4 times daily (DME) Ketone Urine Test Strip See Rx Instructions .ROUTE .MEDSUPPLY Qty: 50 1RF Rx Instructions: once/day (DME) Dexcom G6 Transmitter Device See Rx Instructions .Route Qty: 1 1RF Rx Instructions: As directed (DME) Omnipod 5 G6 Intro Kit (Gen 5) Cartridge See Rx Instructions .Route Qty: 1 0RF Rx Instructions: As directed (DME) Omnipod 5 G6 Pods (Gen 5) Cartridge See Rx Instructions .Route Qty: 45 1RF Rx Instructions: change every 48-72 hours Discontinued insulin glargine [Basaglar KwikPen U-100 Insulin] 100 unit/mL (3 mL) insulin pen 20 unit subcut QHS insulin aspart U-100 [Novolog FlexPen U-100 Insulin] 100 unit/mL (3 mL) insulin pen 15 unit subcut TID Qty: 40.5 1RF Referrals / Follow Up: Minnie Hodge [Primary Care Provider] - Disposition Disposition (needs filled in before D/C Order can be placed): Home, Self Care 10/17/23 1430<Electronically signed by Nathan Pineda DO>Nathan Pineda DO CC: Minnie oHdge; Dr. Damien Villagran DO ~ Signed [facility] Work Phone: Evaluation note* Diagnosis Onset Date Resolution Status Insulin pump titration chron ic Presence of insulin pump chr onic Type I diabetes mellitus chr onic Numbness and tingling acute Insulin pump titration chron ic Presence of insulin pump chr onic Type I diabetes mellitus chr onic [facility] Work Phone: Evaluation note* Diagnosis Acute midline low back pain without sciatica- Primary [facility] this encounter [facility]* Diagnosis Upper back strain, initial encounter- Primary documented in this encounter [facility]Evalun[facility] foundation noteNo assessment information availableWGerman [facility] Work Phone: Evaluation note* Diagnosis Onset Date Resolution Status Presence of insulin pump chr onic Type I diabetes mellitus chr onic DKA (diabetic ketoacidoses) acute Leukocytosis acute Nausea & vomiting acute [facility] Work Phone: Evaluation note* Diagnosis Onset Date Resolution Status Presence of insulin pump chr onic Type I diabetes mellitus chr onic DKA (diabetic ketoacidoses) resolved Leukocytosis resolved Nausea & vomiting resolved FRANKLIN (acute kidney injury) ac shahid DKA, type 1 acute UTI (urinary tract infection) acute [facility] Work Phone: Evaluation note* Diagnosis Depression, unspecified depression type- Primary Bipolar affective disorder, remission status unspecified ([facility]) documented in this encounter [facility] note* Diagnosis Onset Date Resolution Status DKA (diabetic ketoacidoses) resolved Leukocytosis resolved Nausea & vomiting resolved FRANKLIN (acute kidney injury) re solved Hypokalemia resolved Hypophosphatemia resolved UTI (urinary tract infection) resolved Type 1 diabetes mellitus with hyperglycemia chronic DKA (diabetic ketoacidosis) resolved Acute dehydration acute Acute hypokalemia acute Acute kidney injury acute Acute nausea with nonbilious vomiting acute DKA, type 1 acute [facility] Work Phone: Evaluation note* Diagnosis Onset Date Resolution Status DKA (diabetic ketoacidoses) resolved Leukocytosis resolved Nausea & vomiting resolved FRANKLIN (acute kidney injury) re solved Hypokalemia resolved Hypophosphatemia resolved UTI (urinary tract infection) resolved Type 1 diabetes mellitus with hyperglycemia chronic DKA (diabetic ketoacidosis) resolved DKA, type 1 acute Acute dehydration resolved Acute hypokalemia resolved Acute kidney injury resolved Acute nausea with nonbilious vomiting resolved DKA (diabetic ketoacidosis) acute DKA, type 1 acute Esophagitis acute [facility] Work Phone: Evaluation note* Diagnosis Type 1 diabetes mellitus without complication ([facility])- Primary Type I (juvenile type) diabetes mellitus without mention of complication, not stated as uncontrolled Nausea Nausea alone documented in this encounter [facility] note* Diagnosis Exposure to SARS-associated coronavirus- Primary Sore throat Acute pharyngitis documented in this encounter [facility] note* Diagnosis Onset Date Resolution Status Type 1 diabetes mellitus with hyperglycemia chronic Non-compliance chronic Type 1 diabetes mellitus with hyperglycemia chronic [facility] Work Phone: Evaluation note* Diagnosis Onset Date Resolution Status Non-compliance chronic Type 1 diabetes mellitus with hyperglycemia chronic Diabetic ketoacidosis acute Hx of type 1 diabetes mellitus acute Tachycardia acute [facility] Work Phone: Evaluation note* Diagnosis Onset Date Resolution Status Non-compliance chronic Type 1 diabetes mellitus with hyperglycemia chronic Hx of type 1 diabetes mellitus acute [facility] Work Phone: Evaluation note* Diagnosis Onset Date Resolution Status Non-compliance chronic Type 1 diabetes mellitus with hyperglycemia chronic Hx of type 1 diabetes mellitus acute Acute colitis acute Appendicitis acute DKA (diabetic ketoacidosis) acute Insulin dependent type 1 diabetes mellitus acute Nausea & vomiting acute Non-compliance chronic Type 1 diabetes mellitus with hyperglycemia [facility] Work Phone: Evaluation note* Diagnosis Onset Date Resolution Status Non-compliance chronic Type 1 diabetes mellitus with hyperglycemia chronic Hx of type 1 diabetes mellitus acute Abdominal pain acute Acute colitis acute Appendicitis acute DKA (diabetic ketoacidosis) acute Insulin dependent type 1 diabetes mellitus acute Nausea & vomiting acute Non-compliance chronic Type 1 diabetes mellitus with hyperglycemia [facility] Work Phone: Evaluation note* Diagnosis Type 1 diabetes mellitus with hyperglycemia (HCC)- Primary Type I (juvenile type) diabetes mellitus without mention of complication, not stated as uncontrolled Encounter for lipid screening for cardiovascular disease Screening for lipoid disorders documented [facility] this encounter [facility]* Diagnosis Type 1 diabetes mellitus without complication (HCC)- Primary Type I (juvenile type) diabetes mellitus without mention of complication, not stated as uncontrolled documented [facility] this encounter [facility]* Diagnosis Well adult exam- Primary Routine general medical examination at a health care facility Type 1 diabetes mellitus without complication (HCC) Type I (juvenile type) diabetes mellitus without mention of complication, not stated as uncontrolled Mild intermittent asthma without complication Unspecified asthma Encounter for immunization Need for other specified prophylactic vaccination against single bacterial disease ARELIS (generalized anxiety disorder) Generalized anxiety disorder Type 1 diabetes mellitus without complication (HCC)- Primary Type I (juvenile type) diabetes mellitus without mention of complication, not stated as uncontrolled documented [facility] this encounter [facility]* Diagnosis Type 1 diabetes mellitus without complication (HCC)- Primary Type I (juvenile type) diabetes mellitus without mention of complication, not stated as uncontrolled [facility] this encounter [facility]* Diagnosis Encounter for gynecological examination (general) (routine) without abnormal findings- Primary Well adult exam Routine general medical examination at a health care facility Screening for cervical cancer Screening for malignant neoplasm of the cervix Encounter for screening for human papillomavirus (HPV) Special screening examination for human papillomavirus (HPV) Screen for STD (sexually transmitted disease) Screening examination for venereal disease Insertion of Nexplanon Insertion of implantable subdermal contraceptive Encounter for removal and reinsertion of Nexplanon [facility] encounter [facility]* Diagnosis Insertion of implantable subdermal contraceptive- Primary documented in this encounter [facility]* Diagnosis Pain- Primary Generalized pain Pain Generalized pain documented in this encounter [facility]* Diagnosis Pain Generalized pain documented in this encounter [facility]* Diagnosis Diabetes mellitus type 1, controlled, without complications (HCC)- Primary Type I (juvenile type) diabetes mellitus without mention of complication, not stated as uncontrolled documented [facility] this encounter [facility]* Diagnosis Type 1 diabetes mellitus without complication (HCC)- Primary Type I (juvenile type) diabetes mellitus without mention of complication, not stated as uncontrolled documented [facility] this encounter [facility]* Diagnosis Hand pain, right Pain in limb documented in this encounter [facility]* Diagnosis Gastroenteritis- Primary Other and unspecified noninfectious gastroenteritis and colitis [facility]* Diagnosis Bacterial sinusitis- Primary Unspecified sinusitis (chronic) Diarrhea, unspecified type documented in this encounter [facility]* Diagnosis Nexplanon removal- Primary Surveillance of previously prescribed implantable subdermal contraceptive documented [facility] this encounter [facility]* Diagnosis Diabetes mellitus type 1, controlled, without complications (HCC) Type I (juvenile type) diabetes mellitus without mention of complication, not stated as uncontrolled documented [facility] this encounter [facility] and physical note Author Dr. Navarro [facility] November 21, 2022 7:57pm Note Date/Time November 21, 2022 7:18pm [facility] Medical Records Department [address] [place] [address] H&P Exam - Hospitalist 11/21/22 1914 MR#: [id number] Acct: [id number] Name: KALIE DESIR Rep #:[id number] : 2000 22 From: Delia Navarro MD PCP: Dr. Erika Sen MD Status:ADM I N Location: ICU CVICU20 2-1 HPI - General General Date of Admission: 11/21/22 Date of Service: 11/21/22 Chief Complaint: Nausea, emesis, abdominal discomfort, elevated BS. HPI Narrative The patient is a 22 y/o F w/ PMHx: Anxiety and Depression, Asthma with allergic rhinitis, IDDM with insulin pump diagnosed at age 9 who presents to the [facility] ED onb 11/21/22 with history of onset nausea, emesis, generalized abdominal discomfort starting at ~ 3 am on day of presentation with reported younger sister with recent illness but no specific GI component with onset hyperglycemiaon her monitor with persistent nausea and intractable emesis prompting eventual ED evaluation. She notes that her sister primarily had upper respiratory type symptoms and that she herself has not had any of these nor any fevers or chills or any issues with urination. She does admit to polydipsia. Work-up in the ED included T97.7, heart rate 110, BP 122/80, respiratory rate 18, 98% on room air,CBC with WC 21, hemoglobin 15.2, platelet 440 with left shift and lymphopenia, CMP with, lactic 15, anion gap 24, BUN/current 20/1.12, glucose 452, lactic acid3.4, calcium 10.2, hepatic profile not marked appearing, lipase 10, acetone moderate. In the ED patient ministered 1 L normal saline, morphine 4 mg IV x1, Zofran 4 mg IV x1 initiated on insulin drip. [facility] Medical History Anxiety and depression Asthma Diabetes type 1, controlled History of marijuana use Implanon in place Insulin pump titration Presence of insulin pump Home Medications albuterol sulfate 90 mcg/actuation aerosol inhaler (Ventolin HFA) 2 puff inhalation Q4H PRN PRN Sob &/Or Wheezing 08/25/18 [History Last Taken 05/12/19] pen needle, diabetic 32 gauge x 5/32 (BD Ultra-Fine Opal Pen Needle) #120 ea 05/19/20 [Rx Last Taken Unknown] Ketone Urine Test (acetone (urine) test) #50 ea 11/05/21 [Rx Last Taken Unknown] FreeStyle Daniela 14 Day Sensor (flash glucose sensor) #2 ea 11/07/21 [Rx Last Taken Unknown] hydroxyzine pamoate 25 mg capsule (Vistaril) 25 mg PO QHS #30 caps 07/21/22 [Rx Last Taken Unknown] blood-glucose sensor (Dexcom G6 Sensor device) #10 ea 09/26/22 [Rx Last Taken Unknown] blood-glucose transmitter (Dexcom G6 Transmitter device) #1 ea 09/26/22 [Rx Last Taken Unknown] insulin aspart U-100 100 unit/mL subcutaneous solution 100 unit continuous subcutaneous infusion .continuous #90 mL 09/26/22 [Rx Last Taken Unknown] potassium citrate 99 mg capsule 99 mg PO DAILY 09/26/22 [History Last Taken Unknown] insulin pump cart,automated,BT (Omnipod 5 G6 Pods (Gen 5) subcutaneous cartridge) #45 ea 11/08/22 [Rx Last Taken Unknown] insulin pump cart,automated,BT (Omnipod 5 G6 Pods (Gen 5) subcutaneous cartridge) #10 ea 11/15/22 [Rx Last Taken Unknown] insulin pump cartridge,automated dose,BT with controller subcutaneous (Omnipod 5G6 Intro Kit (Gen 5) subcutaneous cartridge with controller) #1 ea 11/15/22 [Rx Last Taken Unknown] fluticasone propionate 50 mcg/actuation nasal spray,suspension intranasal 11/21/22 [History Last Taken Unknown] Allergy/AdvReac Type Severity Reaction Status Date / Time bee venom protein (honey bee) Allergy Severe Anaphylaxis Verified 11/21/22 17:08 [bee stings] Penicillins Allergy Unknown Verified 11/21/22 17:08 Sulfa (Sulfonamide Allergy Unknown Verified 11/21/22 17:08 Antibiotics) prednisone AdvReac Vomiting Verified 11/21/22 17:08 Family History (Updated 11/21/22 @ 19:[address] Delia Navarro MD) Grandmother Diabetes Sister Asthma Brother Asthma Mother Heart disease other (Denies knowledge of her paternal family history.) Surgical History History of placement of ear tubes Social History (Updated 11/21/22 @ 19:[address] Delia Navarro MD) household members: family Smoking Status: Never smoker second hand exposure: No alcohol intake: never substance use type: other details: Cannabis, last use ~ 1 month prior, ingested. ROS ROS Narrative Admission Review of Systems: CONSTITUTIONAL: No weight loss, fever, chills, + weakness or fatigue. HEENT: Eyes: No visual loss, blurred vision, double vision or yellow sclerae. Ears, Nose, Throat: No hearing loss, sneezing, congestion, runny nose or sore throat. SKIN: No rash or itching, lesions, wounds. CARDIOVASCULAR: No chest pain, chest pressure or chest discomfort, palpitations,edema, orthopnea, syncopal events. RESPIRATORY: No shortness of breath, cough or sputum, wheezing, hemoptysis. GASTROINTESTINAL: + anorexia, nausea, vomiting, abdominal discomfort. No diarrhea, melena, BRBPR. GENITOURINARY: No dysuria, frequency, urgency or retention. NEUROLOGICAL: No headache, dizziness, syncope, paralysis, ataxia, numbness or tingling in the extremities, focal weakness, change in bowel or bladder control,seizure. MUSCULOSKELETAL: + muscle, back pain, joint pain or stiffness. HEMATOLOGIC: No anemia, bleeding or bruising. LYMPHATICS: No enlarged nodes. No history of splenectomy. PSYCHIATRIC: + history of depression or anxiety. ENDOCRINOLOGIC: No reports of sweating, cold or heat intolerance. No polyuria orpolydipsia. ALLERGIES: + history of asthma, rhinitis. Vital Signs Vital Signs Vital Signs: 11/21/22 17:04 Temperature 97.7 F L Temperature Source Temporal Pulse Rate 110 H Respiratory Rate 18 Blood Pressure 122/80 H Blood Pressure Mean 94 Pulse Ox 98 Weight Weight: 138 lb 14.259 oz Body Mass Index (BMI) 28.0 Physical Exam Narrative Physical Examination: General: Awake, alert, oriented x 3 and cooperative, laying in the ED bed, fatigued and ill-appearing, intermittently dry heaving during evaluation. Skin: Normal color, normal turgor, no icterus, no cyanosis. HEENT: AT/NC, EOMI, PERRLA, dry MM, no carotid bruits or JVD noted. Lungs: Mildly diminished, greater bases, appropriate effort, no rales, ronchi orwheezing. Heart: Tachycardic with regular rhythm; no gallop, rub audible. Abdomen: Soft, mild generalized discomfort but no rebound or guarding, ND, hyperactive BS, no HSM. Extremities: No cyanosis, clubbing, or edema. Neurological: Patient awake, alert, oriented as noted, cognitive function intact; pupils equally reactive to light and accommodation, cranial nerves II-XII grossly normal, moving all 4 extremities, no focal deficits, strength moderately to severely global decrease secondary to acute presentation. Psychiatric: Affect appears fatigued, ill-appearing, no acute evidence of depressive or anxiety feelings but does have underlying history. Results Lab / Micro Data Result Diagrams: 11/21/22 17:35 11/21/22 17:35 Labs: Laboratory Results - last 24 hr 11/21/22 17:11: POC Glucose 431 H 11/21/22 17:35: WBC 21.0 H, RBC 5.38, Hgb 15.2 H, Hct 46.6, MCV 86.6, MCH 28.3, MCHC 32.6, RDW Std Deviation 39.8, RDW Coeff of Marilynn 12.8, Plt Count 440, MPV 9.4, Immature Gran % (Auto) 0.600, Neut % (Auto) 95.2 H, Lymph % (Auto) 2.9 L, [place] % (Auto) 1.0, Eos % (Auto) 0.0, Baso % (Auto) 0.3, Absolute Neuts (auto) 20.0 H, Absolute Lymphs (auto) 0.61 L, Nucleated RBC % 0, Differential Comment SCANNED 11/21/22 17:35: Sodium 137, Potassium 4.0, Chloride 98, Carbon Dioxide 15.0 L, Anion Gap 24 H, BUN 20 H, Creatinine 1.12 H, Estim Creat Clear Calc 77.03, Est GFR (MDRD) Af Amer 77, Est GFR (MDRD) Non-Af 63, BUN/Creatinine Ratio 17.9, Glucose 452 H*, Calcium 10.2 H, Total Bilirubin 0.80, AST 14 L, ALT 24, Alkaline Phosphatase 110, Total Protein 9.3 H, Albumin 5.0, Globulin 4.3 H, Albumin/Globulin Ratio 1.2, Lipase 10 L 11/21/22 17:35: Lactic Acid 3.4 H* 11/21/22 17:35: Acetone Level MODERATE H Assessment & Plan Assessment/Plan (1) DKA (diabetic ketoacidoses): PLAN: Plan The patient is a 22 y/o F w/ PMHx: Anxiety and Depression, Asthma with allergic rhinitis, IDDM with insulin pump diagnosed at age 9 who presents to the [facility] ED onb 11/21/22 with history of onset nausea, emesis, generalized abdominal discomfort starting at ~ 3 am on day of presentation with reported younger sister withrecent illness but no specific GI component with onset hyperglycemia on her monitor with persistent nausea and intractable emesis prompting eventual ED evaluation. #1. DKA w/ Diabetes mellitus type I with associated lactic acidosis and leukocytosis suspected reactive, dehydration associated with potential recent Acute Viral Syndrome given history, ill contacts: Patient in the ED administered 1L normal saline bolus and initiated on insulin drip. Will admit to the ICU, continue on insulin drip, check serial K+, glucose w/ IVF changes pending these levels, serial chemistry, obtain mag, phos daily w/ repletion as needed, transition to home insulin pump SC regimen when gap closed with adjustments as needed, hemoglobin A1c requested, nutrition consultation. Encouraged diet and insulin regimen compliance. #2. Acute kidney injury: Secondary to acute presentation #1. Admission BUN/Cr 20/1.1, prior baseline creatinine noted to be primarily 0.5-0.6 over the last 07/23/2022 0.51, will continue to aggressively hydrate, hold nephrotoxic medications and repeat BMP serially given #1. #3. Anxiety and depression: Per current list patient is only on hydroxyzine low- dose nightly, will continue. #4. Chronic asthma with allergic rhinitis: Not on any chronic inhaler, will have as needed albuterol, continue patient home fluticasone regimen, encourage head of bed and I-S. #5. Chart reported Hx Cannabis usage: Will obtain UDS as certainly could contribute to GI presentation. #6. DVT prophylaxis: Lovenox. #7. CODE STATUS: Full code. Admission Evaluation Time spent evaluating chart, patient history, patient evaluation, care planning and discussion with specialists: 60 minutes. Charges/Coding Visit Charges Inpatient E&M: 94272 Init Hosp L2 11/21/221956 <Electronically signed by Delia Navarro MD> Cosigner Signature (if applicable): CC: Dr. Delia Navarro MD; Dr. Erika Sen MD~ Signed [facility] Work Phone: History and physical note Author Jackeline Akhtar [facility] February 15, 2023 5:24pm Note Date/Time February 15, 2023 4:58 pm [facility] Medical Records Department [address] [place] [address] H&P Exam - Hospitalist 02/15/23 9522 MR#: [id number] Acct: [id number] Name: KALIE DESIR Rep #:[id number] : 2000 22 From: Jackeline Akhtar MD PCP: Dr. Erika Sen MD Status:REG E R Location: ED HPI - General General Date of Admission: 02/15/23 Date of Service: 02/15/23 Chief Complaint: Intractable nausea vomiting HPI Narrative KALIE DESIR, is a 22 F with past medical history second for diabetes mellitus type 1 on insulin who presented to the emergency department with intractable nausea vomiting. Patient symptoms started a day prior to coming in. She had apparently used Adderall and Suboxone given to her by her friend. In addition to the intractable nausea vomiting patient did complain of dysuria as well as frequency. An assessment of diabetic ketoacidosis was made in the emergency department. Patient could not produce any urine in the ED. Admitted to intensive care unit for further manage [facility] Medical History Anxiety and depression Anxiety and depression Asthma Asthma Cannabis hyperemesis syndrome concurrent with and due to cannabis abuse Diabetes type 1, controlled DKA, type 1 History of marijuana use Hypokalemia Hypophosphatemia Implanon in place Insulin pump titration Presence of insulin pump Home Medications albuterol sulfate 90 mcg/actuation aerosol inhaler (Ventolin HFA) 2 puff inhalation Q4H PRN SHORTNES OF BREATH/WHEEZING 08/25/18 [History Last Taken 05/12/19] Ketone Urine Test (acetone (urine) test) #50 ea 11/05/21 [Rx Last Taken Unknown] insulin aspart U-100 100 unit/mL subcutaneous solution 100 unit continuous subcutaneous infusion .continuous #90 mL 09/26/22 [Rx Last Taken Unknown] fluticasone propionate 50 mcg/actuation nasal spray,suspension 2 spray intranasal DAILY NASAL CONGESTION 11/21/22 [History Last Taken 02/12/23] blood-glucose sensor (Dexcom G6 Sensor device) #10 ea 11/23/22 [Rx Last Taken Unknown] blood-glucose transmitter (Dexcom G6 Transmitter device) #1 ea 11/23/22 [Rx Last Taken Unknown] insulin glargine 100 unit/mL (3 mL) subcutaneous pen (Basaglar KwikPen U-100 Insulin) 15 unit (0.15 mL) subcut BID #15 mL 11/23/22 [Rx Last Taken Unknown] insulin pump cart,automated,BT (Omnipod 5 G6 Pods (Gen 5) subcutaneous cartridge) #45 ea 11/23/22 [Rx Last Taken Unknown] insulin pump cartridge,automated dose,BT with controller subcutaneous (Omnipod 5G6 Intro Kit (Gen 5) subcutaneous cartridge with controller) #1 ea 11/23/22 [Rx Last Taken Unknown] pen needle, diabetic 32 gauge x 5/32 (BD Ultra-Fine Opal Pen Needle) #120 ea 11/23/22 [Rx Last Taken Unknown] hydroxyzine pamoate 25 mg capsule (Vistaril) 25 mg PO QHS ITCHING #30 caps 01/13/23 [Rx Last Taken 02/12/23] insulin aspart U-100 100 unit/mL (3 mL) subcutaneous pen (Novolog FlexPen U-100 Insulin aspart) 20 unit (0.2 mL) subcut TID #18 mL 01/13/23 [Rx Last Taken Unknown] Allergy/AdvReac Type Severity Reaction Status Date / Time bee venom protein (honey bee) Allergy Severe Anaphylaxis Verified 02/15/23 14:16 [bee stings] Penicillins Allergy Unknown Verified 02/15/23 14:16 Sulfa (Sulfonamide Allergy Unknown Verified 02/15/23 14:16 Antibiotics) prednisone AdvReac Vomiting Verified 02/15/23 14:16 Family History Grandmother Diabetes Sister Asthma Brother Asthma Mother Heart disease Surgical History History of placement of ear tubes Social History household members: family Smoking Status: Never smoker second hand exposure: No alcohol intake: never substance use type: other details: Cannabis, last use ~ 1 month prior, ingested. ROS ROS Narrative GENERAL: fever, chills, HEENT: denies headache, sinus congestion, RESPIRATORY: denies cough, sputum production, CARDIAC: denies chest pain, palpitations, GASTROINTESTINAL: nausea, vomiting, GENITOURINARY: dysuria, urgency, frequency, EXTREMITY: denies swelling MUSCULOSKELETAL: denies current joint pain or tenderness NEUROLOGIC: denies focal numbness, weakness, tingling HEMATOLOGIC: denies easy bruising and/or hemorrhage INTEGUMENT: denies rashes PSYCHIATRIC: denies suicidal or homicidal ideation Vital Signs Vital Signs Vital Signs: 02/15/23 14:13 02/15/23 15:00 02/15/23 15:03 Temperature 98 F Temperature Source Temporal Pulse Rate 135 H Respiratory Rate 30 H Respiratory Effort Normal Non-Labored Respiratory Pattern Normal Blood Pressure 80/51 L 103/81 H Blood Pressure Mean 60 88 Pulse Ox 99 Oxygen Delivery Method Room Air 02/15/23 16:00 Temperature Temperature Source Pulse Rate 126 H Respiratory Rate 28 H Respiratory Effort Respiratory Pattern Blood Pressure 100/69 Blood Pressure Mean 79 Pulse Ox 99 Oxygen Delivery Method Room Air Weight Weight: 59.7 kg Body Mass Index (BMI) 26.6 Physical Exam Narrative GENERAL: Lethargic HEENT: Atraumatic; dry oral mucosa EYES; Anicteric, Normal Conjunctiva NECK; supple, normal thyroid, RESPIRATORY: Diminished to auscultation CARDIOVASCULAR: Regular S1 S2, GI: soft, normoactive bowel sounds, : No Renal angle tenderness; EXTREMITIES: No edema, no clubbing, MUSCULOSKELETAL: no muscle wasting NEURO: Awake; no lateralizing signs. SKIN: No Rash PSYCH; Flat affect Results Lab / Micro Data 02/15/23 16:05 02/15/23 16:05 Labs: Laboratory Results - last 24 hr 02/15/23 14:21: POC Glucose > 500 H* 02/15/23 16:05: WBC 23.4 H, RBC 5.61 H, Hgb 16.1 H, Hct 44.8, MCV 79.9 L, MCH 28.7, MCHC 35.9, RDW Std Deviation 35.8, RDW Coeff of Marilynn 12.7, Plt Count 548 H,MPV 8.8, Immature Gran % (Auto) 0.900, Neut % (Auto) 89.7 H, Lymph % (Auto) 4.2 L, [place] % (Auto) 4.9, Eos % (Auto) 0.0, Baso % (Auto) 0.3, Absolute Neuts (auto)21.0 H, Absolute Lymphs (auto) 0.98, Nucleated RBC % 0, Sodium 127 L, Potassium 2.8 L, Chloride 86 L, Carbon Dioxide 12.0 L, Anion Gap 29 H, BUN 55 H, Creatinine 1.49 H, Estim Creat Clear Calc 54.87, Est GFR (MDRD) Af Amer 55 L, Est GFR (MDRD) Non-Af 45 L, BUN/Creatinine Ratio 36.9 H, Glucose 443 H, Lactic Acid 1.5, Calcium 8.6, Total Bilirubin 1.10 H, AST 13 L, ALT 17, Alkaline Phosphatase 151 H, Total Protein 7.9, Albumin 3.9, Globulin 4.0, Albumin/Globulin Ratio 1.0, Lipase < 10 L, Serum , Qual NEGATIVE, Acetone Level LARGE H 02/15/23 16:36: POC Glucose 438 H Radiology Impression Chest X-Ray 02/15/23 16:00 IMPRESSION: New left IJ catheter in the SVC. No pneumothorax. Electronically Signed: Arjun Moreland MD at 16:46 EDT Reading Location ID and State: [facility] / [place] , Service support , Assessment & Plan Assessment/Plan (1) DKA, type 1: PLAN: Plan Patient is a 22-year-old lady with history of diabetes mellitus type 1 presentedwith intractable nausea vomiting diagnosed with DKA admitted to the intensive care unit 1. Diabetic ketoacidosis ? Patient has been admitted to the intensive care unit management IV fluids, systemic insulin, serial monitoring of electrolytes and correction of electrolyte abnormalities. Patient progressed being monitored with every 4 BMP 2. Acute kidney injury ? Patient baseline creatinine 0.48 from BMP drawn on 11/07/2021. Creatinine on admission 1.49started on IV fluids serial monitoring of electrolytes ordered 3. Hypokalemia -Corrected per protocol 4. Hyponatremia ? Secondary to pseudohyponatremia from patient's hyperglycemia do expect rapid correction with treatment of underlying DKA 5. Depression with anxiety ? Patient is on as needed hydroxyzine 6. Mild intermittent asthma ? Aerosol treatments as needed 7. Polysubstance abuse ? Include occasional use of marijuana, Adderall as well as Suboxone, Cessation encouraged 8. Suspected acute cystitis ? Patient started on Rocephin urine culture sent Time spent in the patient's overall evaluation,decision-making process, review of diagnostic data, adjustment of management, discussion with other providers, nursing nursing and ancillary staff involved in patient's care documentation, 80Minutes Charges/Coding Multi Select Codes Hospitalists' Procedures Procedures: 59714 Critial Care 1st Hr and 93605 Critial Care Addl 30 Min 02/15/23 1724 <Electronically signed by Jackeline Akhtar MD> Cosigner Signature (if applicable): CC: Dr. Erika Sen MD; Dr. Jackeline Akhtar MD~ Signed [facility] Work Phone: History and physical note Author Damien Villagran [facility] October 16, 2023 5:58pm Note Date/Time October 16, 2023 5:5 2pm [facility] Medical Records Department [address] [place] [address] H&P Exam - Hospitalist 10/16/23 1748 MR#: [id number] Acct: [id number] Name: KALIE DESIR Rep #:[id number] : 2000 23 From: Damien Villagrna DO PCP: Minnie Hodge Status:REG E R Location: ED HPI - General General Date of Service: 10/16/23 Chief Complaint: Nausea and vomiting HPI Narrative KALIE DESIR, is a 23 F who presents with nausea and vomiting. Patient is typeI diabetic who had an insulin pump and then it apparently dislodged last night and then patient started having symptoms with nausea vomiting, abdominal pain consistent with she has had DKA in the past. Did not have any other supplies ofinsulin so presented to the emergency room. Emergency room, patient was noted to be in DKA and did receive IV fluids as well as started on an insulin drip. [facility] Medical History Anxiety and depression Asthma Cannabis hyperemesis syndrome concurrent with and due to cannabis abuse Diabetes type 1, controlled DKA, type 1 History of marijuana use Hypokalemia Hypophosphatemia Implanon in place Insulin pump titration Presence of insulin pump Home Medications albuterol sulfate 90 mcg/actuation aerosol inhaler (Ventolin HFA) 2 puff inhalation Q4H PRN SHORTNES OF BREATH/WHEEZING 08/25/18 [History Last Taken 03/02/23] Ketone Urine Test (acetone (urine) test) #50 ea 11/05/21 [Rx Last Taken Unknown] fluticasone propionate 50 mcg/actuation nasal spray,suspension 2 spray intranasal DAILY NASAL CONGESTION 11/21/22 [History Last Taken 02/12/23] blood-glucose transmitter (Dexcom G6 Transmitter device) #1 ea 11/23/22 [Rx Last Taken Unknown] pen needle, diabetic 32 gauge x 5/32 (BD Ultra-Fine Opal Pen Needle) #120 ea 11/23/22 [Rx Last Taken Unknown] hydroxyzine pamoate 25 mg capsule (Vistaril) 25 mg PO QHS ITCHING #30 caps 01/13/23 [Rx Last Taken 02/12/23] insulin glargine 100 unit/mL (3 mL) subcutaneous pen (Basaglar KwikPen U-100 Insulin) 20 unit subcut QHS 03/01/23 [History Last Taken 03/02/23] blood-glucose sensor (Dexcom G6 Sensor device) #9 ea 05/12/23 [Rx Last Taken Unknown] insulin aspart U-100 100 unit/mL (3 mL) subcutaneous pen (Novolog FlexPen U-100 Insulin aspart) 15 unit (0.15 mL) subcut TID #40.5 mL 06/05/23 [Rx Last Taken Unknown] blood-glucose transmitter (Dexcom G6 Transmitter device) #1 ea 08/14/23 [Rx Last Taken Unknown] insulin pump cartridge,automated dose,BT with controller subcutaneous (Omnipod 5G6 Intro Kit (Gen 5) subcutaneous cartridge with controller) #1 ea 08/15/23 [Rx Last Taken Unknown] insulin pump cart,automated,BT (Omnipod 5 G6 Pods (Gen 5) subcutaneous cartridge) #45 ea 09/18/23 [Rx Last Taken Unknown] Allergy/AdvReac Type Severity Reaction Status Date / Time bee venom protein (honey bee) Allergy Severe Anaphylaxis Verified 10/16/23 15:57 [bee stings] Penicillins Allergy Unknown Verified 10/16/23 15:57 Sulfa (Sulfonamide Allergy Unknown Verified 10/16/23 15:57 Antibiotics) prednisone AdvReac Vomiting Verified 10/16/23 15:57 Family History Grandmother Diabetes Sister Asthma Brother Asthma Mother Heart disease Surgical History History of placement of ear tubes Social History household members: family Smoking Status: Never smoker second hand exposure: No alcohol intake: never substance use type: other details: Cannabis, last use ~ 1 month prior, ingested. ROS ROS Narrative All review of systems were negative except as mentioned above in the history of present illness and the other review of systems. Vital Signs Vital Signs Vital Signs: 10/16/23 15:57 10/16/23 16:01 10/16/23 16:25 Temperature 36.1 C L Temperature Source Temporal Pulse Rate 125 H 105 H Respiratory Rate 16 16 Respiratory Pattern Tachypnea Blood Pressure 128/95 H 145/95 H Blood Pressure Mean 106 111 Pulse Ox 100 99 Oxygen Delivery Method Room Air Room Air 10/16/23 16:49 10/16/23 17:00 Temperature Temperature Source Pulse Rate 99 98 Respiratory Rate 27 H 23 H Respiratory Pattern Blood Pressure 140/82 H Blood Pressure Mean 99 Pulse Ox 98 97 Oxygen Delivery Method Room Air Weight Weight: 69.8 kg Body Mass Index (BMI) 31.1 Physical Exam Const alert and no apparent distress Constitutional Narrative: Listless. Afebrile. General Appearance: cooperative HEENT normocephalic and head/scalp atraumatic Neck no lymphadenopathy Neck Narrative: no thyromegaly Resp normal respiratory effort, no retractions, no use of accessory muscles and clearto auscultation bilaterally Cardio regular rate, regular rhythm, S1 normal heart sound and S2 normal heart sound GI normal to inspection, nondistended, normoactive bowel sounds, soft to palpation,non-tender and non-distended Extremity normal to inspection Neuro Sensorium / Orientation: awake and alert Psych Psych Narrative: flat affect Results Lab / Micro Data 10/16/23 16:20 10/16/23 16:20 Labs: Laboratory Results - last 24 hr 10/16/23 16:20: WBC 16.9 H, RBC 5.87 H, Hgb 16.4 H, Hct 50.4 H, MCV 85.9, MCH 27.9, MCHC 32.5, RDW Std Deviation 40.3, RDW Coeff of Marilynn 13.0, Plt Count 455 H,MPV 9.1, Immature Gran % (Auto) 0.500, Neut % (Auto) 93.3 H, Lymph % (Auto) 3.7 L, [place] % (Auto) 2.1, Eos % (Auto) 0.0, Baso % (Auto) 0.4, Absolute Neuts (auto)15.8 H, Absolute Lymphs (auto) 0.63 L, Nucleated RBC % 0, Sodium 137, Potassium 4.2, Chloride 101, Carbon Dioxide 17.0 L, Anion Gap 19 H, BUN 18, Creatinine 1.02, Estim Creat Clear Calc 73.50, Est GFR (MDRD) Af Amer 85, Est GFR (MDRD) Non-Af 70, BUN/Creatinine Ratio 17.6, Glucose 387 H, Calcium 10.0, Magnesium 2.2, Serum , Qual NEGATIVE, Acetone Level MODERATE H, POC Glucose 357 H 10/16/23 17:04: Urine Color Yellow, Urine Clarity Clear, Urine pH 5.0, Ur Specific [place] 1.025, Urine Protein 100 H, Urine Glucose (UA) 1000 H, Urine Ketones 150 A*, Urine Occult Blood 10 H, Urine Nitrite Negative, Urine BilirubinNegative, Urine Urobilinogen Normal, Ur Leukocyte Esterase Negative, Urine RBC 0SEEN, Urine WBC 0 SEEN, Ur Squamous Epith Cells 0-5 SEEN, Urine Bacteria 0 SEEN,Urine Mucus 0 SEEN 10/16/23 17:15: POC Glucose 381 H Assessment & Plan Assessment/Plan (1) Diabetic ketoacidosis: PLAN: Plan DKA * In a type I diabetic. Patient stated that her insulin pump dislodged but did not have any other supplies to be able to administer insulin at home. Hence why she came into the hospital. * Patient be on an insulin drip as well as IV fluids. Routine BMPs. When she is out of DKA I would recommend starting her on insulin glargine 20 units and then prandial insulin. Patient had been on 15 3 times daily, and depending on the patient's oral intake may wish to either have a lower dose or just utilize sliding scale insulin. * Patient may need some insulin when she is discharge either through her pump or to be prescribed prandial and basal insulin upon discharge. * Patient has a follow-up appointment with [facility] on November 09. * Check an A1c VTE prophylaxis with enoxaparin Patient warrants admission with high risk medication with an insulin drip. Thiscannot be safely managed at home because of the risk of worsening DKA could be deadly. Charges/Coding Visit Charges Inpatient E&M: 06212 Init Hosp L3 10/16/23 0134 <Electronically signed by Damien Villagran DO> Cosigner Signature (if applicable): CC: Minnie Hodge; Dr. Damien Villagran, ~ Signed [facility] Work Phone: Hospital Discharge instructions Additional Instructions Please take the antibiotic as directed to prevent any secondary infection because of your immunocompromise status from your type 1 diabetes. Return to the ER should you have any further concerns or [facility] Work Phone: Hospital Discharge instructions Additional Instructions Continue to take NSAIDs (Aleve) as we discussed. Ice to the area. Wear thumb spica splint especially when at work to help rest the joint. Please follow-up with orthopedics.[facility] Work Phone: Reason for referral (narrative)* Outpatient Procedure (Routine) - Authorized Specialty Diagnoses / Procedures Referred By Papo keating Referred To Contact [facility] Diagnoses Encounter for removal and reinsertion of Nexplanon Procedures NEXPLANON REMOVAL REMOVAL NON-BIODEGRADABLE DRUG DELIVERY IMPLANT Evelyn Carr MD [address] [place] [address] [address] [place] [address] Referral ID Status Reason Start Date Expiration Date Visits Requested Visits Authorized [id number] Authorized Auto-Generat ed Referral 03/01/2024 03/01/2025 1 1 * Outpatient Procedure (Routine) - Authorized Specialty Diagnoses / Procedures Referred By Papo keating Referred To Contact [facility] Diagnoses Insertion of Nexplanon Procedures NEXPLANON INSERTION ETONOGESTREL IMPLANT SYSTEM INSERT DRUG IMPLANT DEVICE Evelyn Carr MD [address] [place] [address] [facility] [address] [place] [address] Referral ID Status Reason Start Date Expiration Date Visits Requested Visits Authorized [id number] Authorized Auto-Generat ed Referral 03/01/2024 03/01/2025 1 1 [facility] for referral (narrative)* Diagnostic Procedure Only (Urgent) - Closed Specialty Diagnoses / Procedures Referred By Contac t Referred To Contact [facility] Diagnoses Pain Procedures XR LUMBAR GENERAL 3V AP/LAT/L5-S1 RADEX SPINE LUMBOSACRAL 2/3 VIEWS Rosa Isela Gonzalez APRN.CHANGER [employer]ER [address] [place] [address] [place] [address] Referral ID Status Reason Start Date Expiration Date V isits Requested Visits Authorized [id number] Closed Auto-Generate d Referral 03/25/2024 04/24/2025 1 1 * Diagnostic Procedure Only (Urgent) - Closed Specialty Diagnoses / Procedures Referred By Contac t Referred To Contact XR IMAGING Diagnoses Pain Procedures XR WRIST INJURY 4V PA/LAT/OBL/SCAPH RIGHT RADEX WRIST COMPLETE MINIMUM 3 VIEWS Rosa Isela Gonzalez APRN.CHANGER [employer]ER [address] [place] [address] [place] [address] Referral ID Status Reason Start Date Expiration Date V isits Requested Visits Authorized [id number] Closed Auto-Generate d Referral 03/25/2024 04/24/2025 1 1 [facility] for referral (narrative)* Diagnostic Procedure Only (Urgent) - Closed Specialty Diagnoses / Procedures Referred By Contac t Referred To Contact XR IMAGING Diagnoses Pain Procedures XR LUMBAR GENERAL 3V AP/LAT/L5-S1 RADEX SPINE LUMBOSACRAL 2/3 VIEWS Rosa Isela Gonzalez APRN.CHANGER [employer]ER [address] [place] [address] [place] [address] Referral ID Status Reason Start Date Expiration Date V isits Requested Visits Authorized [id number] Closed Auto-Generate d Referral 03/25/2024 04/24/2025 1 1 * Diagnostic Procedure Only (Urgent) - Closed Specialty Diagnoses / Procedures Referred By Contac t Referred To Contact XR IMAGING Diagnoses Pain Procedures XR WRIST INJURY 4V PA/LAT/OBL/SCAPH RIGHT RADEX WRIST COMPLETE MINIMUM 3 VIEWS Rosa Isela Gonzalez APRN.CHANGER [employer] [address] [place] [address] [place] [address] Referral ID Status Reason Start Date Expiration Date V isits Requested Visits Authorized [id number] Closed Auto-Generate d Referral 03/25/2024 04/24/2025 1 1 [facility] for referral (narrative)* Outpatient Procedure (Routine) - New Request Specialty Diagnoses / Procedures Referred By Contac t Referred To Contact [facility] Diagnoses Nexplanon removal Procedures NEXPLANON REMOVAL REMOVAL NON-BIODEGRADABLE DRUG DELIVERY IMPLANT Devika Tarango MD [address] [place] [address] [facility] [address] [place] [address] Referral ID Status Reason Start Date Expiration Date Visits Requested Visits Authorized [id number] New Request Auto-Generat ed Referral 08/19/2024 08/19/2025 1 1 [facility] for referral (narrative)No reason for referral information [facility] Work Phone: Reason for visit Narrative* Diagnostic Procedure Only (Urgent) - Closed Specialty Diagnoses / Procedures Referred By Contac t Referred To Contact XR IMAGING Diagnoses Pain Procedures XR LUMBAR GENERAL 3V AP/LAT/L5-S1 RADEX SPINE LUMBOSACRAL 2/3 VIEWS Rosa Isela Gonzalez APRN.CHANGER FIXER [address] [place] [address] [place] [address] Referral ID Status Reason Start Date Expiration Date V isits Requested Visits Authorized [id number] Closed Auto-Generate d Referral 03/25/2024 04/24/2025 1 1 [facility] Summary Purpose Family History No Family History Records Found Relationship Condition Age at Onset Recorded Date/T oniel grandmother Diabetes mellitus Unknown sister Asthma Unknown brother Asthma Unknown Relationship Condition Age at Onset Recorded Date/T oniel grandmother Diabetes mellitus Unknown sister Asthma Unknown brother Asthma Unknown mother Cardiac disease Unknown Advance Directives No Advanced Directives Records Found Advance Directive Response Recorded Date/ Time Advance Directives No June 28, 2016 11:04am Living Will No March 21 021 6:50am Power of Temperer Yes March 21, 2021 6:50am Advance Directive Response Recorded Date/ Time Advance Directives No June 28, 2016 10:04am Living Will No July 23 7:44pm Power of Temperer No July 23 7:44pm Advance Directive Response Recorded Date/ Time Advance Directives No June 28, 2016 11:04am Living Will No November 21, 2022 5: 12pm Power of Temperer No November 21, 2022 5:12pm Advance Directive Response Recorded Date/ Time Name of Medical Power of Temperer Lee garcia November 21, 2022 8:35pm Advance Directives No June 28, 2016 11:04am Living Will No November 21, 2022 8: 35pm Power of Temperer Yes November 21, 2022 8:35pm Advance Directive Response Recorded Date/ Time Name of Medical Power of Temperer Lee garcia November 21, 2022 8:35pm Advance Directives No June 28, 2016 11:04am Living Will No December 23, 2022 1 1:50pm Power of Temperer No December 23, 2022 11:50pm Advance Directive Response Recorded Date/ Time Name of Medical Power of Temperer Lee garcia November 21, 2022 8:35pm Name of Medical Power of Temperer Lee garcia (fiance) December 24, 2022 6:23am Name of Medical Power of Temperer LITZY Casas February 15, 2023 3:01pm Advance Directives No January 13 3:37pm Living Will No February 15, 2023 3:01pm Power of Temperer Yes February 15 3:01pm Advance Directive Response Recorded Date/ Time Name of Medical Power of Temperer Lee garcia November 21, 2022 8:35pm Name of Medical Power of Temperer Lee garcia ([facility]) December 24, 2022 6:23am Name of Medical Power of Temperer Lee Chandler y, POA February 15, 2023 3:01pm Advance Directives No February 17 10:09am Living Will No February 17, 2023 10:09am Power of Temperer No February 17 10:09am Advance Directive Response Recorded Date/ Time Name of Medical Power of Temperer Lee Ybarrafarhaddeepika garcia November 21, 2022 8:35pm Name of Medical Power of Temperer Lee garcia ([facility]) December 24, 2022 6:23am Name of Medical Power of Temperer Lee Chandler y, POA February 15, 2023 3:01pm Advance Directives No February 17 10:09am Living Will No March 03 1:22pm Power of Temperer No March 03 2 023 1:22pm Advance Directive Response Recorded Date/ Time Name of Medical Power of Temperer Lee garcia November 21, 2022 8:35pm Name of Medical Power of Temperer Lee garcia ([facility]) December 24, 2022 6:23am Name of Medical Power of Temperer Lee Chandler y, POA February 15, 2023 3:01pm Name of Medical Power of Temperer Lee garcia March 03, 2023 4:44pm Advance Directives No January 13 3:37pm Living Will No March 03 4:44pm Power of Temperer Yes March 03, 2 023 4:44pm Advance Directive Response Recorded Date/ Time Advance Directives No January 13 2:37pm Living Will No March 03 3:44pm Power of Temperer Yes March 03, 2 023 3:44pm Advance Directive Response Recorded Date/ Time Advance Directives No January 13 3:37pm Living Will No October 16, 2023 4:25pm Power of Temperer No October 15 4:25pm Advance Directive Response Recorded Date/ Time Advance Directives No January 13 3:37pm Living Will No October 16, 2023 6:56pm Power of Temperer No October 15 6:56pm Advance Directive Response Recorded Date/ Time Advance Directives No January 13 3:37pm Living Will No November 11, 2023 2:49am Power of Temperer No November 10 2:49am Advance Directive Response Recorded Date/ Time Advance Directives No January 13 3:37pm Living Will No November 26, 2023 8: 28am Power of Temperer No November 26, 2023 8:28am Advance Directive Response Recorded Date/ Time Living Will No October 04, 2024 1:57pm Power of Temperer No October 04 1:57pm Advance Directives No February 17 10:09am Advance Directive Response Recorded Date/ Time Living Will No October 04, 2024 1:57pm Do you have a Healthcare Power of Temperer? No October 04, 2024 1:57pm Do you have a Healthcare Power of Temperer? No November 26, 2024 7:56am Advance Directives No February 17 10:09am Advance Directive Response Recorded Date/ Time Living Will No October 04, 2024 1:57pm Do you have a Healthcare Power of Temperer? No October 04, 2024 1:57pm Do you have a Healthcare Power of Temperer? No November 27, 2024 12:39pm Do you have a Healthcare Power of Temperer? No November 26, 2024 7:56am Advance Directives No February 17 10:09am Advance Directive Response Recorded Date/ Time Living Will No October 04, 2024 1:57pm Do you have a Healthcare Power of Temperer? No October 04, 2024 1:57pm Do you have a Healthcare Power of Temperer? No November 27, 2024 4:00pm Do you have a Healthcare Power of Temperer? No November 26, 2024 7:56am Advance Directives No February 17 10:09am Chief Complaint and Reason for Visit Chief Complaint 3 M FU 3 M FU Reason for Visit Insulin pump titrati on Presence of insulin pump Type I diabetes mellitus Numbness and tingling Insulin pump titration Presence of insulin pump Type I diabetes mellitus Chief Complaint HIGH GLUCOSE Chief Complaint 8 M FU DKA Reason for Visit Presence of insulin pump Type I diabetes mellitus DKA (diabetic ketoacidoses) Leukocytosis Nausea & vomiting Chief Complaint 8 M FU DKA DKA DKA Reason for Visit Presence of insulin pump Type I diabetes mellitus DKA (diabetic ketoacidoses) Leukocytosis Nausea & vomiting Chief Complaint 8 M FU DKA DKA DKA DKA Reason for Visit Presence of insulin pump Type I diabetes mellitus DKA (diabetic ketoacidoses) Leukocytosis Nausea & vomiting FRANKLIN (acute kidney injury) DKA, type 1 UTI (urinary tract infection) Chief Complaint DKA DKA DKA DKA DKA DKA DKA DKA DKA DKA 3 M FU DKA Reason for Visit DKA (diabetic ketoac idoses) Leukocytosis Nausea & vomiting FRANKLIN (acute kidney injury) Hypokalemia Hypophosphatemia UTI (urinary tract infection) Type 1 diabetes mellitus with hyperglycemia DKA (diabetic ketoacidosis) Acute dehydration Acute hypokalemia Acute kidney injury Acute nausea with nonbilious vomiting DKA, type 1 Chief Complaint DKA DKA DKA DKA DKA DKA DKA DKA DKA DKA 3 M FU DKA DKA Reason for Visit DKA (diabetic ketoac idoses) Leukocytosis Nausea & vomiting FRANKLIN (acute kidney injury) Hypokalemia Hypophosphatemia UTI (urinary tract infection) Type 1 diabetes mellitus with hyperglycemia DKA (diabetic ketoacidosis) Acute dehydration Acute hypokalemia Acute kidney injury Acute nausea with nonbilious vomiting DKA, type 1 Chief Complaint DKA DKA DKA DKA DKA DKA DKA DKA DKA DKA 3 M FU DKA DKA DKA General illness DKA Reason for Visit DKA (diabetic ketoac idoses) Leukocytosis Nausea & vomiting FRANKLIN (acute kidney injury) Hypokalemia Hypophosphatemia UTI (urinary tract infection) Type 1 diabetes mellitus with hyperglycemia DKA (diabetic ketoacidosis) DKA, type 1 Acute dehydration Acute hypokalemia Acute kidney injury Acute nausea with nonbilious vomiting DKA (diabetic ketoacidosis) DKA, type 1 Esophagitis Chief Complaint DKA DKA DKA DKA DKA DKA DKA DKA DKA DKA 3 M FU DKA DKA DKA General illness DKA DKA DKA Reason for Visit DKA (diabetic ketoac idoses) Leukocytosis Nausea & vomiting FRANKLIN (acute kidney injury) Hypokalemia Hypophosphatemia UTI (urinary tract infection) Type 1 diabetes mellitus with hyperglycemia DKA (diabetic ketoacidosis) DKA, type 1 Acute dehydration Acute hypokalemia Acute kidney injury Acute nausea with nonbilious vomiting DKA (diabetic ketoacidosis) DKA, type 1 Esophagitis Chief Complaint 2 M FU 3 M FU E-ORDER Reason for Visit Type 1 diabetes joy itus with hyperglycemia Non-compliance Type 1 diabetes mellitus with hyperglycemia Chief Complaint 3 M FU E-ORDER congestion,cough,vomiting DKA HYPERGLYCEMIA Reason for Visit Non-compliance Type 1 diabetes mellitus with hyperglycemia Diabetic ketoacidosis Hx of type 1 diabetes mellitus Tachycardia Chief Complaint 3 M FU E-ORDER congestion,cough,vomiting DKA HYPERGLYCEMIA DKA lip ring stuck Reason for Visit Non-compliance Type 1 diabetes mellitus with hyperglycemia Hx of type 1 diabetes mellitus Chief Complaint 3 M FU E-ORDER congestion,cough,vomiting DKA HYPERGLYCEMIA DKA lip ring stuck DKA DKA Reason for Visit Non-compliance Type 1 diabetes mellitus with hyperglycemia Hx of type 1 diabetes mellitus Acute colitis Appendicitis DKA (diabetic ketoacidosis) Insulin dependent type 1 diabetes mellitus Nausea & vomiting Non-compliance Type 1 diabetes mellitus with hyperglycemia Chief Complaint 3 M FU E-ORDER congestion,cough,vomiting DKA HYPERGLYCEMIA DKA lip ring stuck DKA DKA DKA DKA DKA DKA DKA Reason for Visit Non-compliance Type 1 diabetes mellitus with hyperglycemia Hx of type 1 diabetes mellitus Abdominal pain Acute colitis Appendicitis DKA (diabetic ketoacidosis) Insulin dependent type 1 diabetes mellitus Nausea & vomiting Non-compliance Type 1 diabetes mellitus with hyperglycemia Chief Complaint Admit Date Annual (SURGICAL CODER) September 13, 2024 8:36am THUMB PAIN October 04, 2024 1:3 9pm Reason for Visit Admit Date Encounter for contraceptive management F ebruary 2024 8:36am Encounter for routine gynecological exam ination September 13, 2024 8:36am Chief Complaint Admit Date Annual (SURGICAL CODER) September 13, 2024 8:36am THUMB PAIN October 04, 2024 1:3 9pm Nexplanon Removal November 11, 2024 2:2 2pm NAUSEA November 26, 2024 7:47am Chief Complaint Admit Date Annual (SURGICAL CODER) September 13, 2024 8:36am THUMB PAIN October 04, 2024 1:3 9pm Nexplanon Removal November 11, 2024 2:2 2pm NAUSEA November 26, 2024 7:47am DKA November 27, 2024 2:49p m Reason for Visit Admit Date Encounter for contraceptive management F ebruary 2024 8:36am Encounter for routine gynecological exam ination September 13, 2024 8:36am Diabetic ketoacidosis associ ated with type 1 diabetes mellitus November 27, 2024 2:49pm Leukocytosis November 27, 2024 2:49p m Nausea & vomiting November 27, 2024 2:49p m Sinus tachycardia seen on cardiac monito r November 27, 2024 2:49pm Chief Complaint Admit Date Annual (SURGICAL CODER) September 13, 2024 8:36am THUMB PAIN October 04, 2024 1:3 9pm Nexplanon Removal November 11, 2024 2:2 2pm NAUSEA November 26, 2024 7:47am DKA November 27, 2024 3:42p m DKA November 28, 2024 7:50a m Reason for Visit Admit Date Encounter for contraceptive management F ebruary 2024 8:36am Encounter for routine gynecological exam ination September 13, 2024 8:36am Diabetic ketoacidosis associ ated with type 1 diabetes mellitus November 27, 2024 3:42pm Leukocytosis November 27, 2024 3:42p m Nausea & vomiting November 27, 2024 3:42p m Sinus tachycardia seen on cardiac monito r November 27, 2024 3:42pm Diabetic ketoacidosis November 27, 2024 3:4 2pm Insulin dependent type 1 diabetes mellit us November 27, 2024 3:42pm Reason for Referral Specialty Diagnoses / Procedures Referred By Papo keating Referred To Contact [facility] Diagnoses Upper back strain, initial encounter Procedures CONSULT TO PHYSICAL THERAPY PHYSICAL THERAPY EVALUATION HIGH COMPLEX 45 MINS Chasity Hodge PA-C [address] [place] [address] [facility] [place] [address] [place] [address] Referral ID Status Reason Start Date Expiration Date Visits Requested Visits Authorized [id number] Authorized Auto-Generat ed Referral 12/31/2021 12/31/2022 1 1 Specialty Diagnoses / Procedures Referred By Contac t Referred To Contact Diagnoses Type 1 diabetes mellitus without complication (HCC) Procedures CONSULT TO DIABETES EDUCATION DSME/MNT MEDICAL NUTRITION ASSMT&IVNTJ INDIV EACH 15 LA MEDICAL NUTRITION ASSMT&IVNTJ INDIV EACH 15 LA MEDICAL NUTRITION ASSMT&IVNTJ INDIV EACH 15 LA MEDICAL NUTRITION ASSMT&IVNTJ INDIV EACH 15 LA Chasity Hodge PA-C [address] [place] [address] [facility] [address] [place] [address] Referral ID Status Reason Start Date Expiration Date Visits Requested Visits Authorized [id number] Authorized PCP Requested Referral 12/24/2023 12/23/2024 1 1 Specialty Diagnoses / Procedures Referred By Contac t Referred To Contact Endocrinology Diagnoses Type 1 diabetes mellitus without complication (HCC) Procedures CONSULT TO ENDOCRINOLOGY OFFICE/OUTPATIENT [facility] 60 MINUTES Chasity Hodge PA-C [address] [place] [address] Referral ID Status Reason Start Date Expiration Date Visits Requested Visits Authorized [id number] Authorized PCP Requested Referral 12/24/2023 12/23/2024 1 1 Specialty Diagnoses / Procedures Referred By Contac t Referred To Contact Ophthalmology Diagnoses Type 1 diabetes mellitus without complication (HCC) Procedures CONSULT TO OPHTHALMOLOGY OFFICE/OUTPATIENT [facility] 60 MINUTES Chasity Hodge PA-C [address] [place] [address] Referral ID Status Reason Start Date Expiration Date Visits Requested Visits Authorized [id number] Authorized PCP Requested Referral 01/27/2024 01/26/2025 1 1 Specialty Diagnoses / Procedures Referred By Contac t Referred To Contact Gynecology Diagnoses Well adult exam Procedures CONSULT TO GYNECOLOGY OFFICE/OUTPATIENT [facility] HIGH MDM 60 MINUTES Chasity Hodge PA-C [address] [place] [address] Referral ID Status Reason Start Date Expiration Date Visits Requested Visits Authorized [id number] Authorized PCP Requested Referral Auto-Generate d Referral 01/27/2024 01/26/2025 1 1 Specialty Diagnoses / Procedures Referred By Contac t Referred To Contact Diagnoses Type 1 diabetes mellitus without complication (HCC) Procedures CONSULT TO DIABETES EDUCATION DSME MEDICAL NUTRITION ASSMT&IVNTJ INDIV EACH 15 LA MEDICAL NUTRITION ASSMT&IVNTJ INDIV EACH 15 LA MEDICAL NUTRITION ASSMT&IVNTJ INDIV EACH 15 [place] MEDICAL NUTRITION ASSMT&IVNTJ INDIV EACH 15 LA Veronika Dorado APRN.[employer] [address] [place] [address] Referral ID Status Reason Start Date Expiration Date Visits Requested Visits Authorized [id number] Authorized PCP Requested Referral 02/04/2024 02/03/2025 1 1 Additional Source Comments INFORMATION SOURCE (unrecogn ized section and content) DATE CREATED AUTHOR 02/16/2021 Brayden Hudson [facility] DATE CREATED AUTHOR AUTHOR'S ORGANIZ ATION 08/20/2024 [facility] DATE CREATED AUTHOR AUTHOR'S ORGANIZ ATION 12/28/2024 [facility] Goals (unrecognized section and content) Goals may be documented in a n alternate sectionGoals may be documented in an alternate sectionGoals may be documented in an alternate sectionGoals may be documented in an alternate sectionGoals may be documented in an alternate sectionGoals may be documented in an alternate sectionGoals may be documented in an alternate sectionGoals may be documented in an alternate section Source Comments (unrecognize d section and content) In the event this informatio n is protected by the Federal Confidentiality of Alcohol and Drug Abuse Patient Records regulations: The Federal rules restrict any use of the information to criminally investigate or prosecute any alcohol or drug abuse patient.[facility] the event this information is protected by the Federal Confidentiality of Alcohol and Drug Abuse Patient Records regulations: The Federal rules restrict any use of the information to criminally investigate or prosecute any alcohol or drug abuse patient.[facility] CenterIn the event this information is protected by the Federal Confidentiality of Alcohol and Drug Abuse Patient Records regulations: The Federal rules restrict any use of the information to criminally investigate or prosecute any alcohol or drug abuse patient.[facility] CenterIn the event this information is protected by the Federal Confidentiality of Alcohol and Drug Abuse Patient Records regulations: The Federal rules restrict any use of the information to criminally investigate or prosecute any alcohol or drug abuse patient.[facility] CenterIn the event this information is protected by the Federal Confidentiality of Alcohol and Drug Abuse Patient Records regulations: The Federal rules restrict any use of the information to criminally investigate or prosecute any alcohol or drug abuse patient.[facility] CenterIn the event this information is protected by the Federal Confidentiality of Alcohol and Drug Abuse Patient Records regulations: The Federal rules restrict any use of the information to criminally investigate or prosecute any alcohol or drug abuse patient.[facility] CenterIn the event this information is protected by the Federal Confidentiality of Alcohol and Drug Abuse Patient Records regulations: The Federal rules restrict any use of the information to criminally investigate or prosecute any alcohol or drug abuse patient.[facility] CenterIn the event this information is protected by the Federal Confidentiality of Alcohol and Drug Abuse Patient Records regulations: The Federal rules restrict any use of the information to criminally investigate or prosecute any alcohol or drug abuse patient.[facility] CenterIn the event this information is protected by the Federal Confidentiality of Alcohol and Drug Abuse Patient Records regulations: The Federal rules restrict any use of the information to criminally investigate or prosecute any alcohol or drug abuse patient.[facility] CenterIn the event this information is protected by the Federal Confidentiality of Alcohol and Drug Abuse Patient Records regulations: The Federal rules restrict any use of the information to criminally investigate or prosecute any alcohol or drug abuse patient.[facility] CenterIn the event this information is protected by the Federal Confidentiality of Alcohol and Drug Abuse Patient Records regulations: The Federal rules restrict any use of the information to criminally investigate or prosecute any alcohol or drug abuse patient.[facility] CenterIn the event this information is protected by the Federal Confidentiality of Alcohol and Drug Abuse Patient Records regulations: The Federal rules restrict any use of the information to criminally investigate or prosecute any alcohol or drug abuse patient.[facility] CenterIn the event this information is protected by the Federal Confidentiality of Alcohol and Drug Abuse Patient Records regulations: The Federal rules restrict any use of the information to criminally investigate or prosecute any alcohol or drug abuse patient.[facility] CenterIn the event this information is protected by the Federal Confidentiality of Alcohol and Drug Abuse Patient Records regulations: The Federal rules restrict any use of the information to criminally investigate or prosecute any alcohol or drug abuse patient.[facility] CenterIn the event this information is protected by the Federal Confidentiality of Alcohol and Drug Abuse Patient Records regulations: The Federal rules restrict any use of the information to criminally investigate or prosecute any alcohol or drug abuse patient.[facility] CenterIn the event this information is protected by the Federal Confidentiality of Alcohol and Drug Abuse Patient Records regulations: The Federal rules restrict any use of the information to criminally investigate or prosecute any alcohol or drug abuse patient.[facility] CenterIn the event this information is protected by the Federal Confidentiality of Alcohol and Drug Abuse Patient Records regulations: The Federal rules restrict any use of the information to criminally investigate or prosecute any alcohol or drug abuse patient.[facility] CenterIn the event this information is protected by the Federal Confidentiality of Alcohol and Drug Abuse Patient Records regulations: The Federal rules restrict any use of the information to criminally investigate or prosecute any alcohol or drug abuse patient.[facility] CenterIn the event this information is protected by the Federal Confidentiality of Alcohol and Drug Abuse Patient Records regulations: The Federal rules restrict any use of the information to criminally investigate or prosecute any alcohol or drug abuse patient.[facility] CenterIn the event this information is protected by the Federal Confidentiality of Alcohol and Drug Abuse Patient Records regulations: The Federal rules restrict any use of the information to criminally investigate or prosecute any alcohol or drug abuse patient.[facility] CenterIn the event this information is protected by the Federal Confidentiality of Alcohol and Drug Abuse Patient Records regulations: The Federal rules restrict any use of the information to criminally investigate or prosecute any alcohol or drug abuse patient.[facility] CenterIn the event this information is protected by the Federal Confidentiality of Alcohol and Drug Abuse Patient Records regulations: The Federal rules restrict any use of the information to criminally investigate or prosecute any alcohol or drug abuse patient.[facility] CenterIn the event this information is protected by the Federal Confidentiality of Alcohol and Drug Abuse Patient Records regulations: The Federal rules restrict any use of the information to criminally investigate or prosecute any alcohol or drug abuse patient.[facility] CenterIn the event this information is protected by the Federal Confidentiality of Alcohol and Drug Abuse Patient Records regulations: The Federal rules restrict any use of the information to criminally investigate or prosecute any alcohol or drug abuse patient.[facility] CenterIn the event this information is protected by the Federal Confidentiality of Alcohol and Drug Abuse Patient Records regulations: The Federal rules restrict any use of the information to criminally investigate or prosecute any alcohol or drug abuse patient.[facility] CenterIn the event this information is protected by the Federal Confidentiality of Alcohol and Drug Abuse Patient Records regulations: The Federal rules restrict any use of the information to criminally investigate or prosecute any alcohol or drug abuse patient.[facility] CenterIn the event this information is protected by the Federal Confidentiality of Alcohol and Drug Abuse Patient Records regulations: The Federal rules restrict any use of the information to criminally investigate or prosecute any alcohol or drug abuse patient.[facility] CenterIn the event this information is protected by the Federal Confidentiality of Alcohol and Drug Abuse Patient Records regulations: The Federal rules restrict any use of the information to criminally investigate or prosecute any alcohol or drug abuse patient.[facility] CenterIn the event this information is protected by the Federal Confidentiality of Alcohol and Drug Abuse Patient Records regulations: The Federal rules restrict any use of the information to criminally investigate or prosecute any alcohol or drug abuse patient.[facility] CenterIn the event this information is protected by the Federal Confidentiality of Alcohol and Drug Abuse Patient Records regulations: The Federal rules restrict any use of the information to criminally investigate or prosecute any alcohol or drug abuse patient.[facility] CenterIn the event this information is protected by the Federal Confidentiality of Alcohol and Drug Abuse Patient Records regulations: The Federal rules restrict any use of the information to criminally investigate or prosecute any alcohol or drug abuse patient.[facility] CenterIn the event this information is protected by the Federal Confidentiality of Alcohol and Drug Abuse Patient Records regulations: The Federal rules restrict any use of the information to criminally investigate or prosecute any alcohol or drug abuse patient.[facility] CenterIn the event this information is protected by the Federal Confidentiality of Alcohol and Drug Abuse Patient Records regulations: The Federal rules restrict any use of the information to criminally investigate or prosecute any alcohol or drug abuse patient.[facility] CenterIn the event this information is protected by the Federal Confidentiality of Alcohol and Drug Abuse Patient Records regulations: The Federal rules restrict any use of the information to criminally investigate or prosecute any alcohol or drug abuse patient.[facility] CenterIn the event this information is protected by the Federal Confidentiality of Alcohol and Drug Abuse Patient Records regulations: The Federal rules restrict any use of the information to criminally investigate or prosecute any alcohol or drug abuse patient.[facility] CenterIn the event this information is protected by the Federal Confidentiality of Alcohol and Drug Abuse Patient Records regulations: The Federal rules restrict any use of the information to criminally investigate or prosecute any alcohol or drug abuse patient.[facility] CenterIn the event this information is protected by the Federal Confidentiality of Alcohol and Drug Abuse Patient Records regulations: The Federal rules restrict any use of the information to criminally investigate or prosecute any alcohol or drug abuse patient.[facility] [facility] Reason for Visit (unrecogniz ed section and content) Reason Comments Back Pain vomiting x 4 days no t sure why Reason Comments Back Pain Reason Onset Date Comments Refill Request 01/06/2023 Reason Comments Psychiatric Problem Patient thinks she m ay be bipolar Reason Comments bh consult Reason Comments ER F/U Reason Comments Fax last OV note Reason Comments Nasal Congestion drainage, headache, cough and sore throat x 1 week Reason Comments Hospital F/U Reason Comments Orders Reason Comments Physical Reason Comments type 1 diabetes Specialty Diagnoses / Procedures Referred By Contac t Referred To Contact Endocrinology Diagnoses Type 1 diabetes mellitus without complication (HCC) Procedures CONSULT TO ENDOCRINOLOGY OFFICE/OUTPATIENT [facility] MDM 60 MINUTES Chasity Hodge PA-C [address] [place] [address] Referral ID Status Reason Start Date Expiration Date V isits Requested Visits Authorized [id number] Closed PCP Requested Referral 12/24/2023 12/23/2024 1 1 Reason Comments Well Woman Specialty Diagnoses / Procedures Referred By Contac t Referred To Contact Gynecology Diagnoses Well adult exam Procedures CONSULT TO GYNECOLOGY OFFICE/OUTPATIENT [facility] MDM 60 MINUTES Chasity Hodge PA-C [address] [place] [address] Referral ID Status Reason Start Date Expiration Date V isits Requested Visits Authorized [id number] Closed PCP Requested Referral Auto-Generated Referral 01/27/2024 01/26/2025 1 1 Reason Comments nexplanon removal and insertion Specialty Diagnoses / Procedures Referred By Papo t Referred To Contact [facility] Diagnoses Encounter for removal and reinsertion of Nexplanon Procedures NEXPLANON REMOVAL REMOVAL NON-BIODEGRADABLE DRUG DELIVERY IMPLANT Evelyn Carr MD [address] [place] [address] [facility] [address] [place] [address] Referral ID Status Reason Start Date Expiration Date V isits Requested Visits Authorized [id number] Closed Auto-Generate d Referral 03/01/2024 03/01/2025 1 1 Reason Comments Back Pain Lower back pain x 3 daysRight wrist injury x 2 days Reason Onset Date Comments Refill Request 04/01/2024 Reason Comments Provider Statement for Driving Reason Onset Date Comments Refill Request 04/14/2024 Reason Comments Prior Authorization Reason Comments BMV Form For Provider Statement Reason Comments Orders Referral to educatio n Reason Comments Radiology XR Reason Comments Diarrhea With vomiting & inte rmittent HILARIO with low grade fever x 2 days Reason Comments Medication Problem Reason Comments Nasal Congestion drainage, cough x 10 days, diarrhea, nausea x 1 day Reason Onset Date Comments Refill Request 11/04/2024 Care Teams (unrecognized sec tion and content) Cinder Crane Operator Relationship Specialty Start Date End Date Juan Carlos Candelario MD [address] [place] [address] PCP - General Family Practice 03/04/19 Cinder Crane Operator Relationship Specialty Start Date End Date Juan Carlos Candelario MD [address] [place] [address] PCP - General Family Practice 03/04/19 Team Status: Active Member Role Status Dates Dr. Erika Sen MD Family Provider Active Dr. Erika Sen MD Primary Care Provider Active Team Status: Inactive Member Role Status Dates Dr. Erika Sen MD Primary Care Provider, Referring Provider Active Dr. Pj Chow MD Attending Provider Active Team Status: Active Member Role Status Dates Dr. Erika Sen MD Primary Care Provider Active Dr. Lance Ruiz MD Emergency Provider Active Dr. Delia Navarro MD Admit Provider, Attending Prov ider Active Team Status: Active Member Role Status Dates Dr. Erika Sen MD Primary Care Provider Active Dr. Lance Ruiz MD Emergency Provider Active Dr. Delia Navarro MD Admit Provider, Other Provider Active Dr. Jackeline Akhtar MD Attending Provider, Other Provid er Active Team Status: Inactive Member Role Status Dates Dr. Erika Sen MD Primary Care Provider Active Dr. Lance Ruiz MD Emergency Provider Active Dr. Delia Navarro MD Admit Provider, Other Provider Active Dr. Jackeline Akhtar MD Attending Provider Active Team Status: Active Member Role Status Dates Dr. Erika Sen MD Primary Care Provider Active Dr. Danitza Canada , Emergency Provider Active Dr. Antonio Vaca MD Admit Provider, Attending Pro vider Active Cinder Crane Operator Relationship Specialty Start Date End Date Juan Carlos Candelario MD [address] [place] [address] PCP - General Family Medicine 01/06/23 Cinder Crane Operator Relationship Specialty Start Date End Date Juan Carlos Candelario MD [address] [place] [address] PCP - General Family Medicine 01/06/23 Team Status: Inactive Member Role Status Dates Dr. Erika Sen MD Primary Care Provider, Referring Provider Active Indira Wang NP-C Attending Provider Active Team Status: Active Member Role Status Dates Dr. Erika Sen MD Primary Care Provider Active Dr. Danitza Canada DO Emergency Provider Active Dr. Antonio Vaca MD Admit Provider, Other Provide r Active Dr. Bianca Medina MD Referring Provider, Other Prov ider Active Dr. Valerio Garza MD Other Provider Active Dr. Chris Walker DO Other Provider Active Dr. Rafat Cooney MD Attending Provider, Other Pro vider Active Dr. Jesu Bob MD Other Provider Active Chiquita Long NP, FARM MANAGEMENT TEACHER-C Other Provider Active Team Status: Active Member Role Status Dates Dr. Erika Sen MD Primary Care Provider Active Dr. Danitza Canada DO Emergency Provider Active Dr. Antonio Vaca MD Admit Provider, Other Provide r Active Dr. Bianca Medina MD Attending Provider, Other Prov ider Active Dr. Valerio Garza MD Other Provider Active Dr. Chris Walker , DO Other Provider Active Dr. Rafat Cooney MD Other Provider Active Dr. Jesu Bob MD Other Provider Active Chiquita Long FARM MANAGEMENT TEACHER, FARM MANAGEMENT TEACHER-C Other Provider Active Team Status: Active Member Role Status Dates Dr. Erika Sen MD Primary Care Provider Active Dr. Danitza Canada , Emergency Provider Active Dr. Antonio Vaca MD Admit Provider, Referring Provider, Other Provider Active Dr. Bianca Medina MD Other Provider Active Dr. Valerio Garza MD Other Provider Active Dr. Chris Walker , Other Provider Active Dr. Rafat Cooney MD Attending Provider, Other Pro vider Active Dr. Jesu Bob MD Other Provider Active Chiquita Long FARM MANAGEMENT TEACHER, FARM MANAGEMENT TEACHER-C Other Provider Active Team Status: Inactive Member Role Status Dates Dr. Erika Sen MD Primary Care Provider Active Dr. Danitza Canada , Emergency Provider Active Dr. Antonio Vaca MD Admit Provider, Other Provide r Active Dr. Bianca Medina MD Attending Provider Active Dr. Valerio Garza MD Other Provider Active Dr. Chris Walker , Other Provider Active Dr. Rafat Cooney MD Other Provider Active Dr. Jesu Bob MD Other Provider Active Chiquita Long NP, FARM MANAGEMENT TEACHER-C Other Provider Active Team Status: Active Member Role Status Dates Dr. Erika Sen MD Primary Care Provider Active Dr. Juan Carlos Mcgregor DO Emergency Provider Active Dr. Jackeline Akhtar MD Admit Provider, Attending Provid er Active Team Status: Active Member Role Status Dates Dr. Erika Sen MD Primary Care Provider Active Dr. Juan Carlos Mcgregor DO Emergency Provider Active Dr. Jackeline Akhtar MD Admit Provider, Attending Provid er, Other Provider Active Team Status: Inactive Member Role Status Dates Dr. Erika Sen MD Primary Care Provider Active Dr. Juan Carlos Mcgregor DO Emergency Provider Active Dr. Jackeline Akhtar MD Admit Provider, Other Provider A ctive Dr. Nathan Pineda , Attending Provider Active Team Status: Active Member Role Status Dates Dr. Erika Sen MD Family Provider Active Minnie Hodge Primary Care Provider Active Team Status: Active Member Role Status Dates Dr. Erika Sen MD Primary Care Provider Active Dr. Juan Carlos Mcgregor DO Emergency Provider Active Dr. Jackeline Akhtar MD Admit Provider, Other Provider A ctive Dr. Nathan Pineda , DO Attending Provider, Other Pro vider Active Team Status: Inactive Member Role Status Dates Dr. Erika Sen MD Primary Care Provider Active Dr. Sunil Mina DO Emergency Provider Active Team Status: Active Member Role Status Dates Dr. Kaylen Morin MD Emergency Provider Active Minnie Hodge Primary Care Provider Active Dr. Uziel Mahmood MD Admit Provider, Attending Provider Active Cinder Crane Operator Relationship Specialty Start Date End Date Juan Carlos Candelario MD [address] [place], [place] [id number] PCP - General Family Medicine 01/06/23 Team Status: Active Member Role Status Dates Dr. Kaylen Morin MD Emergency Provider Active Minnie Hodge Primary Care Provider Active Dr. Uziel Mahmood MD Admit Provi meagan, Attending Provider, Other Provider Active Team Status: Active Member Role Status Dates Dr. Kaylen Morin MD Emergency Provider Active Minnie Hodge Primary Care Provider Active Dr. Uziel Mahmood MD Admit Provider, Other Pro vider Active Dr. Diego Haas DO Attending Provider, Other Provider Active Team Status: Inactive Member Role Status Dates Dr. Erika Sen MD Primary Care Provider Active Dr. Sunil Mina DO Attending Provider, Emergency Pr ovider Active Team Status: Inactive Member Role Status Dates Dr. Kaylen Morin MD Emergency Provider Active Minnie Hodge Primary Care Provider Active Dr. Uziel Mahmood MD Admit Provider, Other Pro vider Active Dr. Diego Haas DO Attending Provider Active Cinder Crane Operator Relationship Specialty Start Date End Date Juan Carlos Candelario MD [address] [place], [place] [id number] PCP - General Family Medicine 01/06/23 Cinder Crane Operator Relationship Specialty Start Date End Date Juan Carlos Candelario MD [address] [place] [address] PCP - General Family Medicine 01/06/23 Team Status: Inactive Member Role Status Dates Minnie Hodge Primary Care Provider, Referring Provider Active DONOVAN Condon Attending Provider Active Team Status: Inactive Member Role Status Dates Minnie Hodge Primary Care Provider Active DONOVAN Condon Attending Provider, Referring Pr ovider Active Team Status: Active Member Role Status Dates Minnie Hodge Primary Care Provider Active Dr. Kassy Rosales , DO Emergency Provider Active Dr. Damien Villagran , DO Attending Provider Active Team Status: Inactive Member Role Status Dates Minnie Hodge Primary Care Provider Active Dr. Franky Najera , DO Attending Provider, Emergency P butch Active Team Status: Active Member Role Status Trav Hodge Primary Care Provider Active Dr. Kassy Rosales DO Emergency Provider Active Dr. Damien Villagran , DO Admit Provider, At tending Provider, Referring Provider Active Team Status: Inactive Member Role Status Dates Minnie Hodge Primary Care Provider Active Dr. Kassy Rosales , DO Emergency Provider Active Dr. Damien Villagran , DO Admit Provider, Re ferring Provider, Other Provider Active Dr. Nathan Pineda , DO Attending Provider Active Team Status: Active Member Role Status Dates Minnie Hodge Primary Care Provider Active Dr. Kassy Rosales , DO Emergency Provider Active Dr. Damien Villagran , DO Admit Provider, Other Provider A ctive Dr. Nathan Pineda , DO Attending Provider, Other Pro vider Active Team Status: Inactive Member Role Status Dates Minnie Hodge Primary Care Provider Active Dr. Sunil Mina , DO Emergency Provider Active Team Status: Active Member Role Status Dates Minnie Hodge Primary Care Provider Active Dr. Sunil Mina , DO Emergency Provider Active Dr. Jackeline Rowe , DO Attending Provider Active Team Status: Inactive Member Role Status Dates Minnie Hodge Primary Care Provider Active Dr. Sunil Mina , DO Attending Provider, Emergency Pr ovider Active Team Status: Active Member Role Status Dates Minnie Hodge Primary Care Provider Active Dr. Sunil Mina , DO Emergency Provider Active Dr. Jackeline Rowe , DO Admit Provider, Attending Pr ovider Active Dr. Emery Calle MD Other Provider Active Team Status: Active Member Role Status Dates Minnie Hodge Primary Care Provider Active Dr. Sunil Mina , DO Emergency Provider Active Dr. Jackeline Rowe , DO Admit Provider, Other Provid er Active Dr. Emery Calle MD Other Provider Active Dr. Damien Villagran , DO Other Provider Active Tiffanie Parks NP-C Attending Provider Active Team Status: Active Member Role Status Dates Minnie Hodge Primary Care Provider Active Dr. Sunil Mina , DO Emergency Provider Active Dr. Jackeline Rowe , DO Admit Provider, Other Provid er Active Dr. Emery Calle MD Other Provider Active Dr. Damien Villagran , DO Other Provider Active Arely CROOKS, PA-C Attending Provider Active Team Status: Active Member Role Status Dates Minnie Hodge Primary Care Provider Active Dr. Sunil Mina , DO Emergency Provider Active Dr. Jackeline Rowe , DO Admit Provider, Other Provid er Active Dr. Damien Villagran DO Attending Provider, Other Provid er Active Dr. Emery Calle MD Other Provider Active Team Status: Active Member Role Status Dates Minnie Hodge Primary Care Provider Active Dr. Sunil Mina , DO Emergency Provider Active Dr. Jackeline Rowe , DO Admit Provider, Other Provid er Active Dr. Damien Villagran DO Other Provider Active Dr. Emery Calle MD Other Provider Active Arely CROOKS, PA-C Attending Provider Active Team Status: Inactive Member Role Status Dates Minnie Hodge Primary Care Provider Active Dr. Sunil Mina , DO Emergency Provider Active Dr. Jackeline Rowe , DO Admit Provider, Other Provid er Active Dr. Damien Villagran , DO Attending Provider Active Dr. Emery Calle MD Other Provider Active Cinder Crane Operator Relationship Specialty Start Date End Date Juan Carlos Candelario MD [address] [place] [address] PCP - General Family Medicine 01/06/23 Cinder Crane Operator Relationship Specialty Start Date End Date Juan Carlos Candelario MD [address] [place] [address] PCP - General Family Medicine 01/06/23 Cinder Crane Operator Relationship Specialty Start Date End Date uJan Carlos Candelario MD [address] [place] [address] PCP - General Family Medicine 01/06/23 Cinder Crane Operator Relationship Specialty Start Date End Date Juan Carlos Candelario MD [address] [place] [address] PCP - General Family Medicine 01/06/23 Cinder Crane Operator Relationship Specialty Start Date End Date Juan Carlos Candelario MD [address] [place] [address] PCP - General Family Medicine 01/06/23 Cinder Crane Operator Relationship Specialty Start Date End Date Juan Carlos Candelario MD [address] [place] [address] PCP - General Family Medicine 01/06/23 Cinder Crane Operator Relationship Specialty Start Date End Date Juan Carlos Candelario MD [address] [place] [address] PCP - General Family Medicine 01/06/23 Cinder Crane Operator Relationship Specialty Start Date End Date Juan Carlos Candelario MD [address] [place] [address] PCP - General Family Medicine 01/06/23 Cinder Crane Operator Relationship Specialty Start Date End Date Juan Carlos Candelario MD [address] [place] [address] PCP - General Family Medicine 01/06/23 Cinder Crane Operator Relationship Specialty Start Date End Date Juan Carlos Candelario MD [address] [place] [address] PCP - General Family Medicine 01/06/23 Cinder Crane Operator Relationship Specialty Start Date End Date Juan Carlos Candelario MD [address] [place] [address] PCP - General Family Medicine 01/06/23 Cinder Crane Operator Relationship Specialty Start Date End Date Juan Carlos Candelario MD [address] [place] [address] PCP - General Family Medicine 01/06/23 Cinder Crane Operator Relationship Specialty Start Date End Date Juan Carlos Candelario MD [address] [place] [address] PCP - General Family Medicine 01/06/23 Cinder Crane Operator Relationship Specialty Start Date End Date Juan Carlos Candelario MD [address] [place] [address] PCP - General Family Medicine 01/06/23 Cinder Crane Operator Relationship Specialty Start Date End Date Juan Carlos Candelario MD [address] [place] [address] PCP - General Family Medicine 01/06/23 Cinder Crane Operator Relationship Specialty Start Date End Date Juan Carlos Candelario MD [address] [place] [address] PCP - General Family Medicine 01/06/23 Cinder Crane Operator Relationship Specialty Start Date End Date Juan Carlos Candelario MD [address] [place] [address] PCP - General Family Medicine 01/06/23 Cinder Crane Operator Relationship Specialty Start Date End Date Juan Carlos Candelario MD [address] [place] [address] PCP - General Family Medicine 01/06/23 Cinder Crane Operator Relationship Specialty Start Date End Date Juan Carlos Candelario MD [address] [place] [address] PCP - General Family Medicine 01/06/23 Cinder Crane Operator Relationship Specialty Start Date End Date Juan Carlos Candelario MD [address] [place] [address] PCP - General Family Medicine 03/04/19 01/01/23 Cinder Crane Operator Relationship Specialty Start Date End Date Juan Carlos Candelario MD [address] [place] [address] PCP - General Family Medicine 01/06/23 Yamini Orlando APRN.CHANGER FIXER [address] [place] [address] [facility] 06/26/24 Chasity Hodge PA-C [address] [place] [address] [facility] 06/26/24 Cinder Crane Operator Relationship Specialty Start Date End Date Juan Carlos Candelario MD [address] [place] [address] PCP - General Family Medicine 01/06/23 Yamini Orlando APRN.CHANGER FIXER [address] [place] [address] [facility] 06/26/24 Chasity Hodge PA-C [address] [place] [id number] [facility] 06/26/24 Team Status: Active Member Role Status Dates Minnie Hodge Primary Care Provider Active Team Status: Inactive Member Role Status Dates Minnie Hodge Primary Care Provider Active Start: September 13, 2024 End: September 13, 2024 Minnie Hodge Referring Provider Active S tart: September 13, 2024 End: September 13, 2024 SHAGGY HernándezC Attending Provider Active Start: September 13, 2024 End: September 13, 2024 Team Status: Inactive Member Role Status Dates Minnie Hodge Primary Care Provider Active Start: October 04, 2024 End: October 04, 2024 Dr. Danitza Canada DO Emergency Provider Active Start: October 04, 2024 End: October 04, 2024 Cinder Crane Operator Relationship Specialty Start Date End Date Juan Carlos Candelario MD [address] [place] [id number] PCP - General Family Medicine 01/06/23 Yamini Orlando APRN.CNP [address] [place] [address] [id number] [facility] 06/26/24 Chasity Hodge PA-C [address] [place] [address] [id number] [facility] 06/26/24 Team Status: Inactive Member Role Status Dates Minnie Hodge Primary Care Provider Active Start: October 04, 2024 End: October 04, 2024 Dr. Danitza Canada DO Attending Provider Active Start: October 04, 2024 End: October 04, 2024 Dr. Danitza Canada DO Emergency Provider Active Start: October 04, 2024 End: October 04, 2024 Team Status: Inactive Member Role Status Dates Minnie Hodge Primary Care Provider Active Start: November 11, 2024 End: November 11, 2024 Minnie Hodge Referring Provider Active S tart: November 11, 2024 End: November 11, 2024 Emil Overton CNM Attending Provider Active S tart: November 11, 2024 End: November 11, 2024 Team Status: Inactive Member Role Status Dates Minnie Hodge Primary Care Provider Active Start: November 26, 2024 End: November 26, 2024 Dr. Damien Dewey DO Emergency Provider Active Start: November 26, 2024 End: November 26, 2024 Team Status: Active Member Role Status Dates Minnie Burch Hodge Primary Care Provider Active Start: November 27, 2024 Dr. Ted Mcghee MD Emergency Provider Active Sta rt: November 27, 2024 Dr. Zaida Hoff MD Admit Provider Active Star t: November 27, 2024 Dr. Zaida Hoff MD Attending Provider Active Start: November 27, 2024 Dr. Zaida Hoff MD Referring Provider Active Start: November 27, 2024 Team Status: Inactive Member Role Status Dates Minnie Burch Hodge Primary Care Provider Active Start: November 27, 2024 End: November 28, 2024 Dr. Ted Mcghee MD Emergency Provider Active Sta rt: November 27, 2024 End: November 28, 2024 Dr. Zaida Hoff MD Admit Provider Active Star t: November 27, 2024 End: November 28, 2024 Dr. Zaida Hoff MD Referring Provider Active Start: November 27, 2024 End: November 28, 2024 Dr. aZida Hoff MD Other Provider Active Star t: November 27, 2024 End: November 28, 2024 Dr. Damien Villagran DO Attending Provider Active Start: November 27, 2024 End: November 28, 2024 Team Status: Active Member Role Status Dates Minnie Burch Naveen Primary Care Provider Active Start: November 28, 2024 Dr. Ted Mcghee MD Emergency Provider Active Sta rt: November 28, 2024 Dr. Zaida Hoff MD Admit Provider Active Star t: November 28, 2024 Dr. Zaida Hoff MD Referring Provider Active Start: November 28, 2024 Dr. Zaida Hoff MD Other Provider Active Star t: November 28, 2024 Dr. Damien Villagran DO Attending Provider Active Start: November 28, 2024 Dr. Damien Villagran , DO Other Provider Active Star t: November 28, 2024 FOR RECORDS PERTAINING TO PATIENTS WHO ARE [...] BE BASED ON THE PRIMARY CLINICAL RECORDS. [facility] [employer] [facility]. provides no warranty or guarantee of the accuracy or completeness of information in this document.
--- OUTSIDE RECORDS SUMMARY | 2025-01-22 18:17 | XMS RPT_ITS | CCD ---
Author Organization [facility] Care Team Providers Care Ladies Locker Room Attendant Name Role Phone Citlali Levy MD Unavailable [phone] Radha Sterling NP Unavailable Rose Lieberman Unavailable Unavailab amaya Cardenas RETURNED GOODS REPAIRER, Bhumika Engle Unavailable Arti Cassidy Unavailable Unavailable Arti Cassidy Unavailable Unavailable Radha Sterling NP Unavailable Citlali Levy MD Unavailable [phone] oRse Lieberman Unavailable Unavailab CINDY Martin MD Attending [...] Dr. Jesu Bob Other Provider Unavailab Catalan RETURNED GOODS REPAIRER, RETURNED GOODS REPAIRER-C Chiquita Other Provider Dr. Antonio Vaca Referring [...] Dr. Valerio Garza Other Provider Dr. Chris Walekr Other Provider Dr. Rafat Cooney Attending Provider Dr. Rafat Cooney Other Provider Dr. Jesu Bob Other Provider Unavailab amaya Long RETURNED GOODS REPAIRER, RETURNED GOODS REPAIRER-C Chiquita Other Provider Dr. Antonio Vaca Referring [...] Carlos Candelario MD Primary Care Provider Johanny 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, Yamini Unavailable Naveen GALINDO, Chasity Unavailable KODAK, [...] Attending Provider Emil Overton CNM Attending Provider Maco CHENG, Dr. Quezada Emergency Provider [phone]) Melatonin Drug Allergy 06-07-20 21 Diarrhea [facility] Penicillins (antibiotic) (3 sources) Penicillins Drug Allergy 12-31-19 12 Rash [facility] Sulfamethoxazole / Trimethoprim (3 sources) Sulfamethoxazole / Trimethoprim Drug Allergy 12-31-19 12 Vomiting [facility] (10 sources) apis mellifera venom; Translations: [BEE STINGS] allergy to substance 04-02-20 17 Anaphylaxis [facility] Work Phone: (18 sources) Egg drug allergy 01-03-20 17 rash [facility] Work Phone: (18 sources) ibuprofen drug allergy 01-03-20 17 rash [facility] Work Phone: (18 sources) Sulfonamides (Antibiotic) drug allergy 01-03-20 17 [facility] Work Phone: (20 sources) Penicillins; Translations: [PENICILLINS] Allergy to substance 12-31-19 12 [facility] (20 sources) predniSONE; Translations: [PREDNISONE] Drug Allergy 05-12-20 19 Vomiting [facility] (20 sources) Sulfonamides (Antibiotic); Translations: [Sulfa (Sulfonamide Antibiotics)] Allergy to substance 11-08-19 22 Unknown [facility] (20 sources) Melatonin; Translations: [MELATONIN] Drug Allergy 06-07-20 21 Diarrhea [facility] (20 sources) Sulfamethoxazole / Trimethoprim; Translations: [SULFATRIM DS] Drug Allergy 12-31-19 12 Vomiting [facility] (20 sources) bee venom protein (honey bee); Translations: [BEE VENOM PROTEIN (HONEY BEE)] Allergy to substance 07-23-19 Anaphylaxis [facility] (1 source) predniSONE Drug Allergy 11-28-19 [facility] (1 source) bee venom protein (honey bee) Drug allergy (disorder) 11-28-19 25 [facility] Medications Current Medications Medication Drug Class(es) Dates Sig (Normalized) Sig (Original) [id number] 200 actuat albuterol 0.09 mg/actuat metered dose [...] 08 (90 Base) MCG/ACT AERS ALBUTEROL SULFATE [id number] Bhumika Cardenas NP Start: 01-02-2017 VENTOLIN HFA 1 08 (90 Base) MCG/ACT AERS ALBUTEROL SULFATE [id number] Bhumika Cardenas RETURNED GOODS REPAIRER Start: 01-02-2017 VENTOLIN HFA 1 08 (90 Base) MCG/ACT AERS as needed ALBUTEROL SULFATE [id number] Ana Burnette Comment on above: Inhale 2 [...] 04-17-2017 NEXPLANON 66 M G IMPL ETONOGESTREL [id number] Therese Da Silva Comment on above: 1 [...] FLEXPE N 100 UNIT/ML SOPN INSULIN ASPART [id number] Bhumika S [place] RETURNED GOODS REPAIRER Start: 02-20-2017 NOVOLOG FLEXPE N 100 UNIT/ML SOPN INSULIN ASPART [id number] Bhumika S [place] RETURNED GOODS REPAIRER Start: 02-20-2017 NOVOLOG FLEXPE N 100 UNIT/ML SOPN INSULIN ASPART [id number] Bhumika S Theresa RETURNED GOODS REPAIRER Start: 01-02-2017 NOVOLOG 100 UN IT/ML SOLN 15 units INSULIN ASPART [id number] Ana Burnette Start: 01-02-2017 NOVOLOG 100 UN IT/ML SOLN 15 units INSULIN ASPART [id number] Ana Burnette Start: 07-05-2015 End: 08-25-2018 Insulin [...] ICD 10 : E10.9 ACETONE (URINE) TEST [id number] Radha Sterling NP Start: 04-07-2017 KETOSTIX STRP use to check ketones when pt has fever, is vomiting or has blood glucose greater than 300 ICD 10 : E10.9 ACETONE (URINE) TEST [id number] Radha Sterling NP ACETONE (URINE) TEST (1 source) Start: 04-07-2017 KETOSTIX STRP use to check ketones when pt has fever, is vomiting or has blood glucose greater than 300 ICD 10 : E10.9 ACETONE (URINE) TEST [id number] Radha Sterling NP ACETONE (URINE) TEST (3 sources) Start: 04-07-2017 KETOSTIX STRP use to check ketones when pt has fever, is vomiting or has blood glucose greater than 300 ICD 10 : E10.9 ACETONE (URINE) TEST [id number] Radha Sterling RETURNED GOODS REPAIRER Blood-Glucose Meter (FREESTY LE INSULINX) [facility] (1 source) Start: 08-22-2016 End: 06-07-2021 Blood-Glucose Meter (FREESTY LE INSULINX) [facility] Use as directed 1 Each 08/22/2016 06/07/2021 [...] 09-26-2022 End: 09-26-2022 Blood-Glucose Sensor (Freest yle Adniela 3 Sensor) device Discontinued 0 .Route 2 [...] ZYRTEC ALLERGY 10 MG CAPS CETIRIZINE HCL [id number] Bhumika Arevalos RETURNED GOODS REPAIRER Start: 02-20-2017 ZYRTEC ALLERGY 10 MG CAPS CETIRIZINE HCL [id number] Bhumika S [place] RETURNED GOODS REPAIRER EPINEPHRINE SOAJ (9 sources) alpha-Adrenergic Agonist, beta-Adrenergic Agonist, Catecholamine Start: 04-02-2017 EPIPEN 2-REBA SOAJ EPINEPHRINE SOAJ [id number] Radha Sterling RETURNED GOODS REPAIRER Start: 04-02-2017 EPIPEN 2-REBA S OAJ EPINEPHRINE SOAJ [id number] Radha Sterling NP famotidine 20 mg oral [...] now and repeat in 72 hours FLUCONAZOLE [id number] Citlali Levy MD glucagon (rdna) 1 mg injection (20 sources) Antihypoglycemic Agent Start: 01-02-2017 GLUCAGEN DIAGNOSTIC 1 MG SOLR emergency injection GLUCAGON HCL RDNA (DIAGNOSTIC) [id number] Ana Burnette Start: 06-27-2015 End: 12-24-2023 glucagon, [...] LEVEMIR 100 UN IT/ML SOLN INSULIN DETEMIR [id number] Bhumika Cardenas RETURNED GOODS REPAIRER Start: 02-20-2017 LEVEMIR 100 UN IT/ML SOLN INSULIN DETEMIR [id number] Bhumika Cardenas RETURNED GOODS REPAIRER Start: 02-20-2017 LEVEMIR 100 UN IT/ML SOLN INSULIN DETEMIR [id number] Bhumika Cardenas RETURNED GOODS REPAIRER Start: 02-20-2017 LEVEMIR 100 UN IT/ML SOLN INSULIN DETEMIR [id number] Bhumika Cardenas RETURNED GOODS REPAIRER Start: 01-02-2017 LEVEMIR 100 UN IT/ML SOLN 85 units at night INSULIN DETEMIR [id number] Ana Burnette Start: 01-02-2017 LEVEMIR 100 UN IT/ML SOLN 85 units at night INSULIN DETEMIR [id number] Ana Burnette Start: 01-02-2017 LEVEMIR 100 UN IT/ML SOLN 85 units at night INSULIN DETEMIR [id number] Ana Burnette Start: 07-05-2015 End: 07-03-2017 Insulin Detemir U-100 100 UN ITS/ML insulin pen Discontinued 65 U SC AT BEDTIME July 05, 2015 1:00am July 03, 2017 11:44am Start: 07-05-2015 End: 07-03-2017 Insulin Detemir U-100 Discon tinued 65 UNITS SC AT BEDTIME July 05, 2015 1:00am July 03, 2017 11:44am Start: 07-05-2015 End: 07-03-2017 LEVEMIR 100 UNIT /ML SOLN 40U bid INSULIN DETEMIR [id number] Radha Sterling RETURNED GOODS REPAIRER Insulin Glargine-Yfgn (14 sources) Start: 12-27-2022 End: [...] ML Use as adirected INSULIN SYRINGE-NEEDLE U-100 [id number] Radha Sterling NP Insulin Syringe-Needle U-100 (13 sources) Start: 06-29-2018 End: 07-06-2018 Insulin Syringe-Needle U-100 Discontinued 0 UNIT .Route .[facility] June 29, 2018 10:52am July 06, 2018 8:55am use to inject insulin 4 x qd Start: 06-29-2018 End: 07-06-2018 Insulin Syringe-Needle U-100 Discontinued 0 UNIT .Route .[facility] June 29, 2018 11:52am July 06, [...] MISC Use as adirected INSULIN SYRINGE-NEEDLE U-100 [id number] Radha Sterling NP Start: 04-02-2017 End: 07-02-2025 CAREONE INSULIN SYRINGE 31G X 5/16 1 ML MISC Use as adirected INSULIN SYRINGE-NEEDLE U-100 [id number] Radha Sterling NP levoFLOXacin 750 mg oral [...] Auto (Unsp spec) [#/Vol] 1.29 10*3/uL 0.83-4.51 [facility] Absolute neutrophil countOrd ered By: Zaida Hoff on 11-28-2024 Neutrophils (Bld) [#/Vol] 10.3 10*3/uL High 2.0-7.7 [facility] Anion gap in Serum or Plasma Ordered By: Zaida Hoff on 11-28-2024 Anion gap [Moles/Vol] 10 mmol/L 5-15 [facility] Automated lymphocyte count a s percentage of total leukocytesOrdered By: Zaida Hoff on 11-28-2024 Lymphocytes/100 WBC Auto (Unsp spec) 10.4 % Low 19-41 [facility] BUN/creatinine ratioOrdered By: Zadia Hoff on 11-28-2024 Urea nitrogen/Creatinine [Mass ratio] 11.1 mg/mg 10-20 [facility] Basic Metabolic Profile (BMP )on 11-28-2024 BUN Normal 4-19 [facility] Comment on above: Order Comment: Call MD with results STAT Result Comment: Canc elled via OM: MD Ordered Performed By: #### L [id number], L700.6800, L500.4050, L501.2450, L100.0100 #### [facility] [address] [place], [address] BUN/CRE Normal 10-20 [facility] Comment on above: Order Comment: Call MD with results STAT Result Comment: Canc elled via OM: MD Ordered Performed By: #### L [id number], L700.6800, L500.4050, L501.2450, L100.0100 #### [facility] [address] [place], [address] Calcium Normal 7.6-11.0 [facility] Comment on above: Order Comment: Call MD with results STAT Result Comment: Canc elled via OM: MD Ordered Performed By: #### L [id number], L700.6800, L500.4050, L501.2450, L100.0100 #### [facility] [address] [place], [address] CL Normal 98-108 [facility] Comment on above: Order Comment: Call MD with results STAT Result Comment: Canc elled via OM: MD Ordered Performed By: #### L [id number], L700.6800, L500.4050, L501.2450, L100.0100 #### [facility] [address] [place], [address] CO2 Normal 21.0-32.0 [facility] Comment on above: Order Comment: Call MD with results STAT Result Comment: Canc elled via OM: MD Ordered Performed By: #### L [id number], L700.6800, L500.4050, L501.2450, L100.0100 #### [facility] [address] [place], [address] CREAT,SERUM Normal 0.70-1.20 [facility] Comment on above: Order Comment: Call MD with results STAT Result Comment: Canc elled via OM: MD Ordered Performed By: #### L [id number], L700.6800, L500.4050, L501.2450, L100.0100 #### [facility] [address] [place], [address] eGFR Normal >60 [facility] Comment on above: Order Comment: Call MD with results STAT Result Comment: Canc elled via OM: MD Ordered Performed By: #### L [id number], L700.6800, L500.4050, L501.2450, L100.0100 #### [facility] [address] [place], [address] GAP Normal 5-15 [facility] Comment on above: Order Comment: Call MD with results STAT Result Comment: Canc elled via OM: MD Ordered Performed By: #### L [id number], L700.6800, L500.4050, L501.2450, L100.0100 #### [facility] [address] [place], [address] GLU Normal 70-99 [facility] Comment on above: Order Comment: Call MD with results STAT Result Comment: Canc elled via OM: MD Ordered Performed By: #### L [id number], L700.6800, L500.4050, L501.2450, L100.0100 #### [facility] [address] [place], [address] Potassium Normal 3.3-5.1 [facility] Comment on above: Order Comment: Call MD with results STAT Result Comment: Canc elled via OM: MD Ordered Performed By: #### L [id number], L700.6800, L500.4050, L501.2450, L100.0100 #### [facility] [address] [place], [address] Basic Metabolic Profile (BMP) Normal 133-145 [facility] Comment on above: Order Comment: Call MD with results STAT Result Comment: Can elled via OM: MD Ordered Performed By: #### L [id number], L700.6800, L500.4050, L501.2450, L100.0100 #### [facility] [address] [place], [address] BUN Normal 4-19 [facility] Comment on above: Order Comment: Call MD with results STAT Result Comment: Can elled via OM: MD Ordered Performed By: #### L 501.6901, L700.6800, L500.4050, L501.2450, L100.0100 #### [facility] [address] [place], [address] BUN/CRE Normal 10-20 [facility] Comment on above: Order Comment: Call MD with results STAT Result Comment: Can elled via OM: MD Ordered Performed By: #### L 501.6901, L700.6800, L500.4050, L501.2450, L100.0100 #### [facility] [address] [place], [address] Calcium Normal 7.6-11.0 [facility] Comment on above: Order Comment: Call MD with results STAT Result Comment: Can elled via OM: MD Ordered Performed By: #### L 501.6901, L700.6800, L500.4050, L501.2450, L100.0100 #### [facility] [address] [place], [address] CL Normal 98-108 [facility] Comment on above: Order Comment: Call MD with results STAT Result Comment: Canc elled via OM: MD Ordered Performed By: #### L [id number], L700.6800, L500.4050, L501.2450, L100.0100 #### [facility] [address] [place], [address] CO2 Normal 21.0-32.0 [facility] Comment on above: Order Comment: Call MD with results STAT Result Comment: Can elled via OM: MD Ordered Performed By: #### L [id number], L700.6800, L500.4050, L501.2450, L100.0100 #### [facility] [address] [place], [address] CREAT,SERUM Normal 0.70-1.20 [facility] Comment on above: Order Comment: Call MD with results STAT Result Comment: Can elled via OM: MD Ordered Performed By: #### L 501.6901, L700.6800, L500.4050, L501.2450, L100.0100 #### [facility] [address] [place], [address] eGFR Normal >60 [facility] Comment on above: Order Comment: Call MD with results STAT Result Comment: Canc elled via OM: MD Ordered Performed By: #### L 501.6901, L700.6800, L500.4050, L501.2450, L100.0100 #### [facility] [address] [place], [address] GAP Normal 5-15 [facility] Comment on above: Order Comment: Call MD with results STAT Result Comment: Can elled via OM: MD Ordered Performed By: #### L 501.6901, L700.6800, L500.4050, L501.2450, L100.0100 #### [facility] [address] [place], [address] GLU Normal 70-99 [facility] Comment on above: Order Comment: Call MD with results STAT Result Comment: Sharon elled via OM: MD Ordered Performed By: #### L 501.6901, L700.6800, L500.4050, L501.2450, L100.0100 #### [facility] [address] [place], [address] Potassium Normal 3.3-5.1 [facility] Comment on above: Order Comment: Call MD with results STAT Result Comment: Sharon elled via OM: MD Ordered Performed By: #### L 501.6901, L700.6800, L500.4050, L501.2450, L100.0100 #### [facility] [address] [place], [address] Basic Metabolic Profile (BMP) Normal 133-145 [facility] Comment on above: Order Comment: Call MD with results STAT Result Comment: Sharon de souzaed via OM: MD Ordered Performed By: #### L 501.6901, L700.6800, L500.4050, L501.2450, L100.0100 #### [facility] [address] [place], [address] BUN/CRE 11.1 RATIO Normal 10-20 [facility] Comment on above: Order Comment: Call MD with results STAT Performed By: #### L 501.6901, L700.6800, L500.4050, L501.2450, L100.0100 #### [facility] [address] [place], [address] Calcium [Mass/Vol] 7.1 mg/dL Low 7.6-11.0 [facility] Comment on above: Order Comment: Call with results STAT Performed By: #### L 501.6901, L700.6800, L500.4050, L501.2450, L100.0100 #### [facility] [address] [place], [address] Chloride [Moles/Vol] 106 mmol/L Normal 98-108 [facility] Comment on above: Order Comment: Call MD with results STAT Performed By: #### L 501.6901, L700.6800, L500.4050, L501.2450, L100.0100 #### [facility] [address] [place], [address] CO2 [Moles/Vol] 19.1 mmol/L Low 21.0-32.0 [facility] Comment on above: Order Comment: Call MD with results STAT Performed By: #### L 501.6901, L700.6800, L500.4050, L501.2450, L100.0100 #### [facility] [address] [place], [address] Creatinine [Mass/Vol] 0.46 mg/dL Low 0.70-1.20 [facility] Comment on above: Order Comment: Call MD with results STAT Performed By: #### L 501.6901, L700.6800, L500.4050, L501.2450, L100.0100 #### [facility] [address] [place], [address] ECRCL 166.47 ml/min Normal 50-250 [facility] Comment on above: Order Comment: Call MD with results STAT Performed By: #### L 501.6901, L700.6800, L500.4050, L501.2450, L100.0100 #### [facility] [address] [place], [address] GAP 10 Normal 5-15 [facility] Comment on above: Order Comment: Call MD with results STAT Performed By: #### L 501.6901, L700.6800, L500.4050, L501.2450, L100.0100 #### [facility] [address] [place], [address] GFR/1.73 sq M.predicted among non-blacks MDRD (S/P/Bld) [Vol rate/Area] 135 mL/min/{1.73_m2} Normal >60 [facility] Comment on above: Order Comment: Call MD with results STAT Result Comment: mL/m in/1.73m2 CKD-EPI Creatinine Equation (2020) Performed By: #### L 501.6901, L700.6800, L500.4050, L501.2450, L100.0100 #### [facility] [address] [place], [address] Glucose [Mass/Vol] 156 mg/dL High 70-99 [facility] Comment on above: Order Comment: Call MD with results STAT Performed By: #### L 501.6901, L700.6800, L500.4050, L501.2450, L100.0100 #### [facility] [address] [place], [address] Potassium [Moles/Vol] 2.9 mmol/L Low 3.3-5.1 [facility] Comment on above: Order Comment: Call MD with results STAT Result Comment: Hemo lysis present, Results??could be affected. ?? Performed By: #### L 501.6901, L700.6800, L500.4050, L501.2450, L100.0100 #### [facility] [address] [place], [address] Sodium [Moles/Vol] 135 mmol/L Normal 133-145 [facility] Comment on above: Order Comment: Call MD with results STAT Performed By: #### L 501.6901, L700.6800, L500.4050, L501.2450, L100.0100 #### [facility] [address] [place], [address] Urea nitrogen [Mass/Vol] 5 mg/dL Normal 4-19 [facility] Comment on above: Order Comment: Call MD with results STAT Performed By: #### L 501.6901, L700.6800, L500.4050, L501.2450, L100.0100 #### [facility] [address] [place], [address] BUN Normal 4-19 [facility] Comment on above: Result Comment: over lapping order, ok to cancel as by mwitucki Performed By: #### L 501.6901, L700.6800, L500.4050, L501.2450, L100.0100 #### [facility] [address] [place], [address] BUN/CRE Normal 10-20 [facility] Comment on above: Result Comment: over lapping order, ok to cancel as by mwitucki Performed By: #### L 501.6901, L700.6800, L500.4050, L501.2450, L100.0100 #### [facility] [address] [place], [address] Calcium Normal 7.6-11.0 [facility] Comment on above: Result Comment: over lapping order, ok to cancel as by mwitucki Performed By: #### L 501.6901, L700.6800, L500.4050, L501.2450, L100.0100 #### [facility] [address] [place], [address] CL Normal 98-108 [facility] Comment on above: Result Comment: over lapping order, ok to cancel as by mwitucki Performed By: #### L 501.6901, L700.6800, L500.4050, L501.2450, L100.0100 #### [facility] [address] [place], [address] CO2 Normal 21.0-32.0 [facility] Comment on above: Result Comment: over lapping order, ok to cancel as by mwitucki Performed By: #### L 501.6901, L700.6800, L500.4050, L501.2450, L100.0100 #### [facility] [address] [place], [address] CREAT,SERUM Normal 0.70-1.20 [facility] Comment on above: Result Comment: over lapping order, ok to cancel as by mwitucki Performed By: #### L 501.6901, L700.6800, L500.4050, L501.2450, L100.0100 #### [facility] [address] [place], [address] eGFR Normal >60 [facility] Comment on above: Result Comment: over lapping order, ok to cancel as by mwitucki Performed By: #### L 501.6901, L700.6800, L500.4050, L501.2450, L100.0100 #### [facility] [address] [place], [address] GAP Normal 5-15 [facility] Comment on above: Result Comment: over lapping order, ok to cancel as by mwitucki Performed By: #### L 501.6901, L700.6800, L500.4050, L501.2450, L100.0100 #### [facility] [address] [place], [address] GLU Normal 70-99 [facility] Comment on above: Result Comment: over lapping order, ok to cancel as by mwitucki Performed By: #### L 501.6901, L700.6800, L500.4050, L501.2450, L100.0100 #### [facility] [address] [place], [address] Potassium Normal 3.3-5.1 [facility] Comment on above: Result Comment: over lapping order, ok to cancel as by mwitucki Performed By: #### L 501.6901, L700.6800, L500.4050, L501.2450, L100.0100 #### [facility] [address] [place], [address] Basic Metabolic Profile (BMP) Normal 133-145 [facility] Comment on above: Result Comment: over lapping order, ok to cancel as by mwitucki Performed By: #### L 501.6901, L700.6800, L500.4050, L501.2450, L100.0100 #### [facility] [address] [place], [address] BUN/CRE 16.4 RATIO Normal 10-20 [facility] Comment on above: Order Comment: Call MD with results STAT Performed By: #### L 501.6901, L700.6800, L500.4050, L501.2450, L100.0100 #### [facility] [address] [place], [address] Calcium [Mass/Vol] 7.1 mg/dL Low 7.6-11.0 [facility] Comment on above: Order Comment: Call MD with results STAT Performed By: #### L 501.6901, L700.6800, L500.4050, L501.2450, L100.0100 #### [facility] [address] [place], [address] Chloride [Moles/Vol] 108 mmol/L Normal 98-108 [facility] Comment on above: Order Comment: Call MD with results STAT Performed By: #### L 501.6901, L700.6800, L500.4050, L501.2450, L100.0100 #### [facility] [address] [place], [address] CO2 [Moles/Vol] 15.6 mmol/L Low 21.0-32.0 [facility] Comment on above: Order Comment: Call MD with results STAT Performed By: #### L 501.6901, L700.6800, L500.4050, L501.2450, L100.0100 #### [facility] [address] [place], [address] Creatinine [Mass/Vol] 0.45 mg/dL Low 0.70-1.20 [facility] Comment on above: Order Comment: Call MD with results STAT Performed By: #### L 501.6901, L700.6800, L500.4050, L501.2450, L100.0100 #### [facility] [address] [place], [address] ECRCL 157.25 ml/min Normal 50-250 [facility] Comment on above: Order Comment: Call MD with results STAT Performed By: #### L 501.6901, L700.6800, L500.4050, L501.2450, L100.0100 #### [facility] [address] [place], [address] GAP 14 Normal 5-15 [facility] Comment on above: Order Comment: Call MD with results STAT Performed By: #### L 501.6901, L700.6800, L500.4050, L501.2450, L100.0100 #### [facility] [address] [place], [address] GFR/1.73 sq M.predicted among non-blacks MDRD (S/P/Bld) [Vol rate/Area] 136 mL/min/{1.73_m2} Normal >60 [facility] Comment on above: Order Comment: Call MD with results STAT Result Comment: mL/m in/1.73m2 CKD-EPI Creatinine Equation (2020) Performed By: #### L 501.6901, L700.6800, L500.4050, L501.2450, L100.0100 #### [facility] [address] [place], [address] Glucose [Mass/Vol] 165 mg/dL High 70-99 [facility] Comment on above: Order Comment: Call MD with results STAT Performed By: #### L 501.6901, L700.6800, L500.4050, L501.2450, L100.0100 #### [facility] [address] [place], [address] Potassium [Moles/Vol] 2.9 mmol/L Low 3.3-5.1 [facility] Comment on above: Order Comment: Call MD with results STAT Performed By: #### L 501.6901, L700.6800, L500.4050, L501.2450, L100.0100 #### [facility] [address] [place], [address] Sodium [Moles/Vol] 138 mmol/L Normal 133-145 [facility] Comment on above: Order Comment: Call MD with results STAT Performed By: #### L 501.6901, L700.6800, L500.4050, L501.2450, L100.0100 #### [facility] [address] [place], [address] Urea nitrogen [Mass/Vol] 7 mg/dL Normal 4-19 [facility] Comment on above: Order Comment: Call MD with results STAT Performed By: #### L 501.6901, L700.6800, L500.4050, L501.2450, L100.0100 #### [facility] [address] [place], [address] BUN/CRE 17.4 RATIO Normal 10-20 [facility] Comment on above: Order Comment: Call MD with results STAT Performed By: #### L 501.6901, L700.6800, L500.4050, L501.2450, L100.0100 #### [facility] [address] [place], [address] Calcium [Mass/Vol] 7.3 mg/dL Low 7.6-11.0 [facility] Comment on above: Order Comment: Call MD with results STAT Performed By: #### L 501.6901, L700.6800, L500.4050, L501.2450, L100.0100 #### [facility] [address] [place], [address] Chloride [Moles/Vol] 110 mmol/L High 98-108 [facility] Comment on above: Order Comment: Call MD with results STAT Performed By: #### L 501.6901, L700.6800, L500.4050, L501.2450, L100.0100 #### [facility] [address] [place], [address] CO2 [Moles/Vol] 16.5 mmol/L Low 21.0-32.0 [facility] Comment on above: Order Comment: Call MD with results STAT Performed By: #### L 501.6901, L700.6800, L500.4050, L501.2450, L100.0100 #### [facility] [address] [place], [address] Creatinine [Mass/Vol] 0.52 mg/dL Low 0.70-1.20 [facility] Comment on above: Order Comment: Call MD with results STAT Performed By: #### L 501.6901, L700.6800, L500.4050, L501.2450, L100.0100 #### [facility] [address] [place], [address] ECRCL 136.08 ml/min Normal 50-250 [facility] Comment on above: Order Comment: Call MD with results STAT Performed By: #### L 501.6901, L700.6800, L500.4050, L501.2450, L100.0100 #### [facility] [address] [place], [address] GAP 12 Normal 5-15 [facility] Comment on above: Order Comment: Call MD with results STAT Performed By: #### L 501.6901, L700.6800, L500.4050, L501.2450, L100.0100 #### [facility] [address] [place], [address] GFR/1.73 sq M.predicted among non-blacks MDRD (S/P/Bld) [Vol rate/Area] 131 mL/min/{1.73_m2} Normal >60 [facility] Comment on above: Order Comment: Call MD with results STAT Result Comment: mL/m in/1.73m2 CKD-EPI Creatinine Equation (2020) Performed By: #### L 501.6901, L700.6800, L500.4050, L501.2450, L100.0100 #### [facility] [address] [place], [address] Glucose [Mass/Vol] 179 mg/dL High 70-99 [facility] Comment on above: Order Comment: Call MD with results STAT Performed By: #### L 501.6901, L700.6800, L500.4050, L501.2450, L100.0100 #### [facility] [address] [place], [address] Potassium [Moles/Vol] 3.0 mmol/L Low 3.3-5.1 [facility] Comment on above: Order Comment: Call MD with results STAT Performed By: #### L 501.6901, L700.6800, L500.4050, L501.2450, L100.0100 #### [facility] [address] [place], [address] Sodium [Moles/Vol] 139 mmol/L Normal 133-145 [facility] Comment on above: Order Comment: Call MD with results STAT Performed By: #### L 501.6901, L700.6800, L500.4050, L501.2450, L100.0100 #### [facility] [address] [place], [address] Urea nitrogen [Mass/Vol] 9 mg/dL Normal 4-19 [facility] Comment on above: Order Comment: Call MD with results STAT Performed By: #### L 501.6901, L700.6800, L500.4050, L501.2450, L100.0100 #### [facility] [address] [place], [address] Basophil percentageOrdered B y: Zaidahannah Hoff on 11-28-2024 Basophils/100 WBC (Bld) 0.2 % 0-1 [facility] Bedside Glucoseon 11-28-2024 FINGERSTICK GLU 129 mg/dL High 74-106 [facility] Comment on above: Result Comment: FAY GEMENT OF PATIENT CARE PER NURSING PROTOCOL Performed By: #### L 501.6901, L700.6800, L500.4050, L501.2450, L100.0100 #### [facility] [address] [place], [address] FINGERSTICK GLU 134 mg/dL High 74-106 [facility] Comment on above: Result Comment: FAY GEMENT OF PATIENT CARE PER NURSING PROTOCOL Performed By: #### L 501.080 #### [facility] [address] [place], [address] FINGERSTICK GLU 132 mg/dL High 74-106 [facility] Comment on above: Result Comment: FAY GEMENT OF PATIENT CARE PER NURSING PROTOCOL Performed By: #### L 501.6901, L700.6800, L500.4050, L501.2450, L100.0100 #### [facility] [address] [place], [address] FINGERSTICK GLU 144 mg/dL High 74-106 [facility] Comment on above: Result Comment: FAY GEMENT OF PATIENT CARE PER NURSING PROTOCOL Performed By: #### L 9000.0810 #### [facility] [address] [place], [address] FINGERSTICK GLU 143 mg/dL High 74-106 [facility] Comment on above: Result Comment: FAY GEMENT OF PATIENT CARE PER NURSING PROTOCOL Performed By: #### L 501.6901, L700.6800, L500.4050, L501.2450, L100.0100 #### [facility] [address] [place], [address] FINGERSTICK GLU 120 mg/dL High 74-106 [facility] Comment on above: Result Comment: FAY GEMENT OF PATIENT CARE PER NURSING PROTOCOL Performed By: #### L 501.080 #### [facility] [address] [place], [address] FINGERSTICK GLU 126 mg/dL High 74-106 [facility] Comment on above: Result Comment: FAY GEMENT OF PATIENT CARE PER NURSING PROTOCOL Performed By: #### L 501.6901, L700.6800, L500.4050, L501.2450, L100.0100 #### [facility] [address] [place], [address] FINGERSTICK GLU 156 mg/dL High 74-106 [facility] Comment on above: Result Comment: FAY GEMENT OF PATIENT CARE PER NURSING PROTOCOL Performed By: #### L 501.080 #### [facility] [address] [place], [address] FINGERSTICK GLU 155 mg/dL High 74-106 [facility] Comment on above: Result Comment: FAY GEMENT OF PATIENT CARE PER NURSING PROTOCOL Performed By: #### L 9000.0810 #### [facility] [address] [place], [address] FINGERSTICK GLU 190 mg/dL High 74-106 [facility] Comment on above: Result Comment: FAY ARCINIEGA OF PATIENT CARE PER NURSING PROTOCOL Performed By: #### L 501.6901, L700.6800, L500.4050, L501.2450, L100.0100 #### [facility] [address] [place], [address] Beta-Hydroxbytyrateon 2024 BETA-HYDROXYBUT 2.9 mmol/L Normal 0.0-0.3 [facility] Comment on above: Performed By: #### L 501.6901, L700.6800, L500.4050, L501.2450, L100.0100 #### [facility] [address] [place], [address] BETA-HYDROXYBUT 1.3 mmol/L Normal 0.0-0.3 [facility] Comment on above: Performed By: #### L 9000.0810 #### [facility] [address] [place], [address] Beta-hydroxybutyrateOrdered By: Jackeline Aguilar on 11-28-2024 Beta hydroxybutyrate [Mass/Vol] 2.9 mmol/L 0.0-0.3 [facility] CBC W/Diff, Automatedon 11-18 Absolute Lymph 1.29 X10 3/uL Normal 0.83-4.51 [facility] Comment on above: Performed By: #### L 501.6901, L700.6800, L500.4050, L501.2450, L100.0100 #### [facility] [address] [place], [address] Absolute Neut 10.3 X10 3/uL High 2.0-7.7 [facility] Comment on above: Performed By: #### L 501.6901, L700.6800, L500.4050, L501.2450, L100.0100 #### [facility] [address] [place], [address] Basophils/100 WBC (Bld) 0.2 % Normal 0-1 [facility] Comment on above: Performed By: #### L 501.6901, L700.6800, L500.4050, L501.2450, L100.0100 #### [facility] [address] [place], [address] Eosinophils/100 WBC (Bld) 0.0 % Normal 0-5 [facility] Comment on above: Performed By: #### L 501.6901, L700.6800, L500.4050, L501.2450, L100.0100 #### [facility] [address] [place], [address] Erythrocyte distribution width (RBC) [Ratio] 12.7 % Normal 11.6-14.6 [facility] Comment on above: Performed By: #### L 501.6901, L700.6800, L500.4050, L501.2450, L100.0100 #### [facility] [address] [place], [address] Hematocrit (Bld) [Volume fraction] 34.0 % Low 37-47 [facility] Comment on above: Performed By: #### L 501.6901, L700.6800, L500.4050, L501.2450, L100.0100 #### [facility] [address] [place], [address] Hemoglobin (Bld) [Mass/Vol] 11.5 g/dL Low 12.0-15.0 [facility] Comment on above: Performed By: #### L 501.6901, L700.6800, L500.4050, L501.2450, L100.0100 #### [facility] [address] [place], [address] IG% 0.300 Normal 0.0-0.9 [facility] Comment on above: Result Comment: IG% - Immature Granulocytes (promyelocytes, myelocytes and metamyelocytes) > 1% indicates that a LEFT SHIFT is Present. Performed By: #### L 501.6901, L700.6800, L500.4050, L501.2450, L100.0100 #### [facility] [address] [place], [address] Lymphocytes/100 WBC (Bld) 10.4 % Low 19-41 [facility] Comment on above: Performed By: #### L 501.6901, L700.6800, L500.4050, L501.2450, L100.0100 #### [facility] [address] [place], [address] MCH (RBC) [Entitic mass] 28.9 pg Normal 27.0-32.0 [facility] Comment on above: Performed By: #### L 501.6901, L700.6800, L500.4050, L501.2450, L100.0100 #### [facility] [address] [place], [address] MCHC (RBC) [Mass/Vol] 33.8 g/dL Normal 32-36 [facility] Comment on above: Performed By: #### L 501.6901, L700.6800, L500.4050, L501.2450, L100.0100 #### [facility] [address] [place], [address] MCV (RBC) [Entitic vol] 85.4 fL Normal 81-99 [facility] Comment on above: Performed By: #### L 501.6901, L700.6800, L500.4050, L501.2450, L100.0100 #### [facility] [address] [place], [address] Monocytes/100 WBC (Bld) 6.7 % Normal 0-10 [facility] Comment on above: Performed By: #### L 501.6901, L700.6800, L500.4050, L501.2450, L100.0100 #### [facility] [address] [place], [address] Neutrophils/100 WBC (Bld) 82.4 % High 47-70 [facility] Comment on above: Performed By: #### L 501.6901, L700.6800, L500.4050, L501.2450, L100.0100 #### [facility] [address] [place], [address] Nucleated RBC (Bld) [#/Vol] 0 10*3/uL Normal 0-5 [facility] Comment on above: Performed By: #### L 501.6901, L700.6800, L500.4050, L501.2450, L100.0100 #### [facility] [address] [place], [address] Platelet mean volume (Bld) [Entitic vol] 8.7 fL Normal 6.2-12.0 [facility] Comment on above: Performed By: #### L 501.6901, L700.6800, L500.4050, L501.2450, L100.0100 #### [facility] [address] [place], [address] Platelets (Bld) [#/Vol] 296 10*3/uL Normal 150-450 [facility] Comment on above: Performed By: #### L 501.6901, L700.6800, L500.4050, L501.2450, L100.0100 #### [facility] [address] [place], [address] RBC (Bld) [#/Vol] 3.98 10*6/uL Low 4.2-5.4 [facility] Comment on above: Performed By: #### L 501.6901, L700.6800, L500.4050, L501.2450, L100.0100 #### [facility] [address] [place], [address] RDW SD 39.4 fl Normal 35.1-43.9 [facility] Comment on above: Performed By: #### L 501.6901, L700.6800, L500.4050, L501.2450, L100.0100 #### [facility] [address] [place], [address] WBC (Bld) [#/Vol] 12.4 10*3/uL High 4.4-11.0 [facility] Comment on above: Performed By: #### L 501.6901, L700.6800, L500.4050, L501.2450, L100.0100 #### [facility] [address] [place], [address] Carbon dioxide, total [Moles /volume] in Central venous bloodOrdered By: Zaida Hoff on 11-28-2024 CO2 [Moles/Vol] 19.1 mmol/L Low 21.0-32.0 [facility] Chloride assayOrdered By: Daksha Hoff on 11-28-2024 Chloride [Moles/Vol] 106 mmol/L 98-108 [facility] Eosinophil percentageOrdered By: Zaida Hoff on 11-28-2024 Eosinophils/100 WBC (Bld) 0.0 % 0-5 [facility] Erythrocyte distribution wid th ratioOrdered By: Zaida Hoff on 11-28-2024 Erythrocyte distribution width (RBC) [Ratio] 12.7 % 11.6-14.6 [facility] Erythrocyte distribution wid th standard deviationOrdered By: Zaida Hoff on 11-28-2024 Erythrocyte distribution width (RBC) [Ratio] 39.4 fl 35.1-43.9 [facility] Glomerular filtration rate ( GFR) estimation/1.73 sq m using serum, plasma, or whole bOrdered By: Zaida Hoff on 11-28-2024 GFR/1.73 sq M.predicted among non-blacks MDRD (S/P/Bld) [Vol rate/Area] 135 mL/min/{1.73_m2} >60 [facility] Comment on above: mL/min/1.73m2 CKD-EP I Creatinine Equation (2020) [facility] deOrdered By: Damien Villagran on 11-28-2024 Glucose [Mass/Vol] 129 mg/dL High 74-106 [facility] Comment on above: MANAGEMENT OF PATIEN T CARE PER NURSING PROTOCOL Hematocrit Auto (Bld) [Volum e fraction]Ordered By: Zaida Hoff on 11-28-2024 Hematocrit (Bld) [Volume fraction] 34.0 % Low 37-47 [facility] Hemoglobin A1con 11-28-2024 HbA1c (Bld) [Mass fraction] 12.4 % High <=5.6 [facility] Comment on above: Result Comment: Norm al < 5.7 % Prediabetic 5.7 - 6.4 % Diabetic >or= 6.5 % Please note range changes. Performed By: #### L 501.6901, L700.6800, L500.4050, L501.2450, L100.0100 #### [facility] [address] [place] [address]. [place], [place], [id number] Hemoglobin A1c percentageOrd ered By: Zaida Hoff on 11-28-2024 HbA1c (Bld) [Mass fraction] 12.4 % High <5.7 [facility] Comment on above: Normal < 5.7 % Predi abetic 5.7 - 6.4 % Diabetic >or= 6.5 % Please note range changes. Hemoglobin measurementOrdere d By: Zaida Hoff on 11-28-2024 Hemoglobin (Bld) [Mass/Vol] 11.5 g/dL Low 12.0-15.0 [facility] Immature granulocytes/100 WB C Auto (Bld)Ordered By: Zaida Hoff on 11-28-2024 Immature granulocytes/100 WBC (Bld) 0.300 % 0.0-0.9 [facility] Comment on above: IG% - Immature Granu locytes (promyelocytes, myelocytes and metamyelocytes) > 1% indicates that a LEFT SHIFT is Present. MCV (mean corpuscular volume ) determinationOrdered By: Zaida Hoff on 11-28-2024 MCV (RBC) [Entitic vol] 85.4 fL 81-99 [facility] Magnesiumon 11-28-2024 Magnesium [Mass/Vol] 1.8 mg/dL Normal 1.5-2.2 [facility] Comment on above: Performed By: #### L 501.6901, L700.6800, L500.4050, L501.2450, L100.0100 #### [facility] [address] [place], [address] Magnesium measurement (mass/ volume)Ordered By: Zaida Hoff on 11-28-2024 Magnesium (Unsp spec) [Mass/Vol] 1.8 mg/dL 1.5-2.2 [facility] Mean corpuscular hemoglobin (MCH) determinationOrdered By: Zaida Hoff on 11-28-2024 MCH (RBC) [Entitic mass] 28.9 pg 27.0-32.0 [facility] Mean corpuscular hemoglobin concentration (MCHC) determinationOrdered By: Zaida Hoff on 11-28-2024 MCHC (RBC) [Mass/Vol] 33.8 g/dL 32-36 [facility] Mean platelet volume determi nationOrdered By: Zaida Hoff on 11-28-2024 Platelet mean volume (Bld) [Entitic vol] 8.7 fL 6.2-12.0 [facility] Monocyte percentageOrdered B y: Zaida Hoff on 11-28-2024 Monocytes/100 WBC (Bld) 6.7 % 0-10 [facility] Neutrophil percentageOrdered By: Zaida Hoff on 11-28-2024 Neutrophils/100 WBC (Bld) 82.4 % High 47-70 [facility] Nucleated red blood cell per centageOrdered By: Zaida Hoff on 11-28-2024 Nucleated RBC/100 WBC (Bld) [Ratio] 0 % 0-5 [facility] Platelet countOrdered By: Daksha Hoff on 11-28-2024 Platelets (Bld) [#/Vol] 296 10*3/uL 150-450 [facility] Potassium measurement (mass/ volume)Ordered By: Zaida Hoff on 11-28-2024 Potassium (Unsp spec) [Mass/Vol] 2.9 mmol/L Low 3.3-5.1 [facility] Comment on above: Hemolysis present, R esults could be affected. RBC Auto (Bld) [#/Vol]Ordere d By: Zaida Hoff on 11-28-2024 RBC (Bld) [#/Vol] 3.98 10*6/uL Low 4.2-5.4 [facility] Serum creatinine measurement (mass/volume)Ordered By: Zaida Hoff on 11-28-2024 Creatinine [Mass/Vol] 0.46 mg/dL Low 0.70-1.20 [facility] Serum glucose measurement (m ass/volume)Ordered By: Zaida Hoff on 11-28-2024 Glucose [Mass/Vol] 156 mg/dL High 70-99 [facility] Serum or plasma calcium edward urement (mass/volume)Ordered By: Zaida Hoff on 11-28-2024 Calcium [Mass/Vol] 7.1 mg/dL Low 7.6-11.0 [facility] Serum or plasma urea nitroge n measurement (mass/volume)Ordered By: Zaida Hoff on 11-28-2024 Urea nitrogen [Mass/Vol] 5 mg/dL 4-19 [facility] Sodium levelOrdered By: Jett Hoff on 11-28-2024 Sodium [Moles/Vol] 135 mmol/L 133-145 [facility] White blood cell (WBC) count Ordered By: Zaida Hoff on 11-28-2024 WBC (Bld) [#/Vol] 12.4 10*3/uL High 4.4-11.0 [facility] 12 Lead EKGon 11-27-2024 12 Lead EKG [facility] [address] [place] [address] 12 Lead EKG 11/27/24 1321 MR#: [id number] Acct: [id number] Name: KALIE DESIR Rep #: [id number] : 2000 24 From: Emery Hughes MD [...] enlargement Borderline ECG Confirmed by Emery Hughes ([id number]), food expeditor ARELY OMALLEY ([id number]) on 11/29/2024 9:06:12 AM Referred By: Zaida Hoff Confirmed By: Emery Hughes 11/29/24905 Date Emery Hughes MD CC: Minnie Hodge; Dr. Damien Villagran DO; Dr. Zaida Hoff MD; Dr. Ted Mcghee MD Signed Normal [facility] Absolute lymphocyte countOrd ered By: Ted Mcghee on 11-27-2024 Lymphocytes Auto (Unsp spec) [#/Vol] 0.94 10*3/uL 0.83-4.51 [facility] Absolute neutrophil countOrd ered By: Ted Mcghee on 11-27-2024 Neutrophils (Bld) [#/Vol] 14.7 10*3/uL High 2.0-7.7 [facility] Anion gap in Serum or Plasma Ordered By: Ted Mcghee on 11-27-2024 Anion gap [Moles/Vol] 28 mmol/L High 5-15 [facility] Automated lymphocyte count a s percentage of total leukocytesOrdered By: eTd Mcghee on 11-27-2024 Lymphocytes/100 WBC Auto (Unsp spec) 5.9 % Low 19-41 [facility] BUN/creatinine ratioOrdered By: eTd Mcghee on 11-27-2024 Urea nitrogen/Creatinine [Mass ratio] 20.1 mg/mg High 10-20 [facility] Basic Metabolic Profile (BMP )on 11-27-2024 BUN/CRE 20.3 RATIO High 10-20 [facility] Comment on above: Order Comment: Call MD with results STAT Performed By: #### L 501.6901, L700.6800, L500.4050, L501.2450, L100.0100 #### [facility] [address] [place], [address] Calcium [Mass/Vol] 7.5 mg/dL Low 7.6-11.0 [facility] Comment on above: Order Comment: Call MD with results STAT Performed By: #### L 501.6901, L700.6800, L500.4050, L501.2450, L100.0100 #### [facility] [address] [place], [address] Chloride [Moles/Vol] 109 mmol/L High 98-108 [facility] Comment on above: Order Comment: Call MD with results STAT Performed By: #### L 501.6901, L700.6800, L500.4050, L501.2450, L100.0100 #### [facility] [address] [place], [address] CO2 [Moles/Vol] 13.8 mmol/L Low 21.0-32.0 [facility] Comment on above: Order Comment: Call MD with results STAT Performed By: #### L 501.6901, L700.6800, L500.4050, L501.2450, L100.0100 #### [facility] [address] [place], [address] Creatinine [Mass/Vol] 0.59 mg/dL Low 0.70-1.20 [facility] Comment on above: Order Comment: Call MD with results STAT Performed By: #### L 501.6901, L700.6800, L500.4050, L501.2450, L100.0100 #### [facility] [address] [place], [address] ECRCL 119.94 ml/min Normal 50-250 [facility] Comment on above: Order Comment: Call MD with results STAT Performed By: #### L 501.6901, L700.6800, L500.4050, L501.2450, L100.0100 #### [facility] [address] [place], [address] GAP 15 Normal 5-15 [facility] Comment on above: Order Comment: Call MD with results STAT Performed By: #### L 501.6901, L700.6800, L500.4050, L501.2450, L100.0100 #### [facility] [address] [place], [address] GFR/1.73 sq M.predicted among non-blacks MDRD (S/P/Bld) [Vol rate/Area] 128 mL/min/{1.73_m2} Normal >60 [facility] Comment on above: Order Comment: Call MD with results STAT Result Comment: mL/m in/1.73m2 CKD-EPI Creatinine Equation (2020) Performed By: #### L 501.6901, L700.6800, L500.4050, L501.2450, L100.0100 #### [facility] [address] [place], [address] Glucose [Mass/Vol] 162 mg/dL High 70-99 [facility] Comment on above: Order Comment: Call MD with results STAT Performed By: #### L 501.6901, L700.6800, L500.4050, L501.2450, L100.0100 #### [facility] [facility] [address] [place], [address] Potassium [Moles/Vol] 3.4 mmol/L Normal 3.3-5.1 [facility] Comment on above: Order Comment: Call MD with results STAT Result Comment: Hemo lysis present, Results??could be affected. ?? Performed By: #### L 501.6901, L700.6800, L500.4050, L501.2450, L100.0100 #### [facility] [address] [place], [address] Sodium [Moles/Vol] 138 mmol/L Normal 133-145 [facility] Comment on above: Order Comment: Call MD with results STAT Performed By: #### L 501.6901, L700.6800, L500.4050, L501.2450, L100.0100 #### [facility] [address] [place], [address] Urea nitrogen [Mass/Vol] 12 mg/dL Normal 4-19 [facility] Comment on above: Order Comment: Call MD with results STAT Performed By: #### L 501.6901, L700.6800, L500.4050, L501.2450, L100.0100 #### [facility] [address] [place], [address] BUN/CRE 21.8 RATIO High 10-20 [facility] Comment on above: Order Comment: Call MD with results STAT Performed By: #### L 500.2500 #### [facility] [address] [place], [address] Calcium [Mass/Vol] 8.3 mg/dL Normal 7.6-11.0 [facility] Comment on above: Order Comment: Call MD with results STAT Performed By: #### L 500.2500 #### [facility] [address] [place], [address] Chloride [Moles/Vol] 106 mmol/L Normal 98-108 [facility] Comment on above: Order Comment: Call MD with results STAT Performed By: #### L 500.2500 #### [facility] [address] [place], [address] CO2 [Moles/Vol] 13.0 mmol/L Low 21.0-32.0 [facility] Comment on above: Order Comment: Call MD with results STAT Performed By: #### L 500.2500 #### [facility] [address] [place], [address] Creatinine [Mass/Vol] 0.68 mg/dL Low 0.70-1.20 [facility] Comment on above: Order Comment: Call MD with results STAT Performed By: #### L 500.2500 #### [facility] [address] [place], [address] ECRCL 104.06 ml/min Normal 50-250 [facility] Comment on above: Order Comment: Call MD with results STAT Performed By: #### L 500.2500 #### [facility] [address] [place], [address] GAP 20 High 5-15 [facility] Comment on above: Order Comment: Call MD with results STAT Performed By: #### L 500.2500 #### [facility] [address] [place], [address] GFR/1.73 sq M.predicted among non-blacks MDRD (S/P/Bld) [Vol rate/Area] 123 mL/min/{1.73_m2} Normal >60 [facility] Comment on above: Order Comment: Call MD with results STAT Result Comment: mL/m in/1.73m2 CKD-EPI Creatinine Equation (2020) Performed By: #### L 500.2500 #### [facility] [address] [place], [address] Glucose [Mass/Vol] 205 mg/dL High 70-99 [facility] Comment on above: Order Comment: Call MD with results STAT Performed By: #### L 500.2500 #### [facility] [address] [place], [address] Potassium [Moles/Vol] 3.7 mmol/L Normal 3.3-5.1 [facility] Comment on above: Order Comment: Call MD with results STAT Performed By: #### L 500.2500 #### [facility] [address] [place], [address] Sodium [Moles/Vol] 138 mmol/L Normal 133-145 [facility] Comment on above: Order Comment: Call MD with results STAT Performed By: #### L 500.2500 #### [facility] [address] [place], [address] Urea nitrogen [Mass/Vol] 15 mg/dL Normal 4-19 [facility] Comment on above: Order Comment: Call MD with results STAT Performed By: #### L 500.2500 #### [facility] [address] [place], [address] BUN Normal 4-19 [facility] Comment on above: Result Comment: DUPL ICATE ORDER. Performed By: #### L 500.2500 #### [facility] [address] [place], [address] BUN/CRE Normal 10-20 [facility] Comment on above: Result Comment: DUPL ICATE ORDER. Performed By: #### L 500.2500 #### [facility] [address] [place], [address] Calcium Normal 7.6-11.0 [facility] Comment on above: Result Comment: DUPL ICATE ORDER. Performed By: #### L 500.2500 #### [facility] [address] [place], [address] CL Normal 98-108 [facility] Comment on above: Result Comment: DUPL ICATE ORDER. Performed By: #### L 500.2500 #### [facility] [address] [place], [address] CO2 Normal 21.0-32.0 [facility] Comment on above: Result Comment: DUPL ICATE ORDER. Performed By: #### L 500.2500 #### [facility] [address] [place], [address] CREAT,SERUM Normal 0.70-1.20 [facility] Comment on above: Result Comment: DUPL ICATE ORDER. Performed By: #### L 500.2500 #### [facility] [address] [place], [address] eGFR Normal >60 [facility] Comment on above: Result Comment: DUPL ICATE ORDER. Performed By: #### L 500.2500 #### [facility] [address] [place], [address] GAP Normal 5-15 [facility] Comment on above: Result Comment: DUPL ICATE ORDER. Performed By: #### L 500.2500 #### [facility] [address] [place], [address] GLU Normal 70-99 [facility] Comment on above: Result Comment: DUPL ICATE ORDER. Performed By: #### L 500.2500 #### [facility] [address] [place], [address] Potassium Normal 3.3-5.1 [facility] Comment on above: Result Comment: DUPL ICATE ORDER. Performed By: #### L 500.2500 #### [facility] [address] [place], [address] Basic Metabolic Profile (BMP) Normal 133-145 [facility] Comment on above: Result Comment: DUPL ICATE ORDER. Performed By: #### L 500.2500 #### [facility] [address] [place], [address] BUN/CRE 20.1 RATIO High 10-20 [facility] Comment on above: Performed By: #### L 500.2500 #### [facility] [address] [place], [address] Calcium [Mass/Vol] 10.0 mg/dL Normal 7.6-11.0 [facility] Comment on above: Performed By: #### L 500.2500 #### [facility] [address] [place], [address] Chloride [Moles/Vol] 97 mmol/L Low 98-108 [facility] Comment on above: Performed By: #### L 500.2500 #### [facility] [address] [place], [address] CO2 [Moles/Vol] 11.2 mmol/L Low 21.0-32.0 [facility] Comment on above: Performed By: #### L 500.2500 #### [facility] [address] [place], [address] Creatinine [Mass/Vol] 0.82 mg/dL Normal 0.70-1.20 [facility] Comment on above: Performed By: #### L 500.2500 #### [facility] [address] [place], [address] ECRCL 87.69 ml/min Normal 50-250 [facility] Comment on above: Performed By: #### L 500.2500 #### [facility] [address] [place], [address] GAP 28 High 5-15 [facility] Comment on above: Performed By: #### L 500.2500 #### [facility] [address] [place], [address] GFR/1.73 sq M.predicted among non-blacks MDRD (S/P/Bld) [Vol rate/Area] 102 mL/min/{1.73_m2} Normal >60 [facility] Comment on above: Result Comment: mL/m in/1.73m2 CKD-EPI Creatinine Equation (2020) Performed By: #### L 500.2500 #### [facility] [address] [place], [address] Glucose [Mass/Vol] 335 mg/dL High 70-99 [facility] Comment on above: Performed By: #### L 500.2500 #### [facility] [address] [place], [address] Potassium [Moles/Vol] 3.6 mmol/L Normal 3.3-5.1 [facility] Comment on above: Performed By: #### L 500.2500 #### [facility] [address] [place], [address] Sodium [Moles/Vol] 136 mmol/L Normal 133-145 [facility] Comment on above: Performed By: #### L 500.2500 #### [facility] [address] [place], [address] Urea nitrogen [Mass/Vol] 16 mg/dL Normal 4-19 [facility] Comment on above: Performed By: #### L 500.2500 #### [facility] [address] [place], [address] Basophil percentageOrdered B y: Ted Mcghee on 11-27-2024 Basophils/100 WBC (Bld) 0.3 % 0-1 [facility] Bedside Glucoseon 11-27-2024 FINGERSTICK GLU 187 mg/dL High 74-106 [facility] Comment on above: Result Comment: FAY GEMENT OF PATIENT CARE PER NURSING PROTOCOL Performed By: #### L 9000.0810 #### [facility] [address] [place], [address] FINGERSTICK GLU 214 mg/dL High 74-106 [facility] Comment on above: Result Comment: FAY GEMENT OF PATIENT CARE PER NURSING PROTOCOL Performed By: #### L 501.6901, L700.6800, L500.4050, L501.2450, L100.0100 #### [facility] [address] [place], [address] FINGERSTICK GLU 126 mg/dL High 74-106 [facility] Comment on above: Result Comment: FAY GEMENT OF PATIENT CARE PER NURSING PROTOCOL Performed By: #### L 9000.0810 #### [facility] [address] [place], [address] FINGERSTICK GLU 139 mg/dL High 74-106 [facility] Comment on above: Result Comment: FAY GEMENT OF PATIENT CARE PER NURSING PROTOCOL Performed By: #### L 501.6901, L700.6800, L500.4050, L501.2450, L100.0100 #### [facility] [address] [place], [address] FINGERSTICK GLU 174 mg/dL High 74-106 [facility] Comment on above: Result Comment: FAY GEMENT OF PATIENT CARE PER NURSING PROTOCOL Performed By: #### L 9000.0810 #### [facility] [address] [place], [address] FINGERSTICK GLU 140 mg/dL High 74-106 [facility] Comment on above: Result Comment: FYA GEMENT OF PATIENT CARE PER NURSING PROTOCOL Performed By: #### L 501.6901, L700.6800, L500.4050, L501.2450, L100.0100 #### [facility] [address] [place], [address] FINGERSTICK GLU 155 mg/dL High 74-106 [facility] Comment on above: Result Comment: Dr Chirag barrios Followed MANAGEMENT OF PATIENT CARE PER NURSING PROTOCOL Performed By: #### L 501.6901, L700.6800, L500.4050, L501.2450, L100.0100 #### [facility] [address] [place], [address] FINGERSTICK GLU 181 mg/dL High 74-106 [facility] Comment on above: Result Comment: FAY GEMENT OF PATIENT CARE PER NURSING PROTOCOL Performed By: #### L 501.080 #### [facility] [address] [place], [address] FINGERSTICK GLU 199 mg/dL High 74-106 [facility] Comment on above: Result Comment: FAY GEMENT OF PATIENT CARE PER NURSING PROTOCOL Performed By: #### L 500.2500 #### [facility] [address] [place], [address] Beta-Hydroxbytyrateon 2024 BETA-HYDROXYBUT 5.8 mmol/L Normal 0.0-0.3 [facility] Comment on above: Performed By: #### L 500.2500 #### [facility] [address] [place], [address] Beta-hydroxybutyrateOrdered By: Ted Mcghee on 11-27-2024 Beta hydroxybutyrate [Mass/Vol] 5.8 mmol/L 0.0-0.3 [facility] Bilirubin Test strip Ql (U)O rdered By: Ted Mcghee on 11-27-2024 Bilirubin Ql (U) Negative Negative [facility] CBC W/Diff, Automatedon 05--2024 Absolute Lymph 0.94 X10 3/uL Normal 0.83-4.51 [facility] Comment on above: Performed By: #### L 500.2500 #### [facility] [address] [place], [address] Absolute Neut 14.7 X10 3/uL High 2.0-7.7 [facility] Comment on above: Performed By: #### L 500.2500 #### [facility] [address] [place], [address] Basophils/100 WBC (Bld) 0.3 % Normal 0-1 [facility] Comment on above: Performed By: #### L 500.2500 #### [facility] [address] [place], [address] Eosinophils/100 WBC (Bld) 0.0 % Normal 0-5 [facility] Comment on above: Performed By: #### L 500.2500 #### [facility] [address] [place], [address] Erythrocyte distribution width (RBC) [Ratio] 12.9 % Normal 11.6-14.6 [facility] Comment on above: Performed By: #### L 500.2500 #### [facility] [address] [place], [address] Hematocrit (Bld) [Volume fraction] 44.4 % Normal 37-47 [facility] Comment on above: Performed By: #### L 500.2500 #### [facility] [address] [place], [address] Hemoglobin (Bld) [Mass/Vol] 14.9 g/dL Normal 12.0-15.0 [facility] Comment on above: Performed By: #### L 500.2500 #### [facility] [address] [place], [address] IG% 0.400 Normal 0.0-0.9 [facility] Comment on above: Result Comment: IG% - Immature Granulocytes (promyelocytes, myelocytes and metamyelocytes) > 1% indicates that a LEFT SHIFT is Present. Performed By: #### L 500.2500 #### [facility] [address] [place], [address] Lymphocytes/100 WBC (Bld) 5.9 % Low 19-41 [facility] Comment on above: Performed By: #### L 500.2500 #### [facility] [address] [place], [address] MCH (RBC) [Entitic mass] 29.0 pg Normal 27.0-32.0 [facility] Comment on above: Performed By: #### L 500.2500 #### [facility] [address] [place], [address] MCHC (RBC) [Mass/Vol] 33.6 g/dL Normal 32-36 [facility] Comment on above: Performed By: #### L 500.2500 #### [facility] [address] [place], [address] MCV (RBC) [Entitic vol] 86.4 fL Normal 81-99 [facility] Comment on above: Performed By: #### L 500.2500 #### [facility] [address] [place], [address] Monocytes/100 WBC (Bld) 2.1 % Normal 0-10 [facility] Comment on above: Performed By: #### L 500.2500 #### [facility] [address] [place], [address] Neutrophils/100 WBC (Bld) 91.3 % High 47-70 [facility] Comment on above: Performed By: #### L 500.2500 #### [facility] [address] [place], [address] Nucleated RBC (Bld) [#/Vol] 0 10*3/uL Normal 0-5 [facility] Comment on above: Performed By: #### L 500.2500 #### [facility] [address] [place], [address] Platelet mean volume (Bld) [Entitic vol] 8.7 fL Normal 6.2-12.0 [facility] Comment on above: Performed By: #### L 500.2500 #### [facility] [address] [place], [address] Platelets (Bld) [#/Vol] 410 10*3/uL Normal 150-450 [facility] Comment on above: Performed By: #### L 500.2500 #### [facility] [address] [place], [address] RBC (Bld) [#/Vol] 5.14 10*6/uL Normal 4.2-5.4 [facility] Comment on above: Performed By: #### L 500.2500 #### [facility] [address] [place], [address] RDW SD 40.5 fl Normal 35.1-43.9 [facility] Comment on above: Performed By: #### L 500.2500 #### [facility] [address] [place], [address] WBC (Bld) [#/Vol] 16.1 10*3/uL High 4.4-11.0 [facility] Comment on above: Performed By: #### L 500.2500 #### [facility] [address] [place], [address] CO2 (BldV) [Moles/Vol]Ordere d By: Ted Mcghee on 11-27-2024 CO2 [Moles/Vol] 12 mmol/L Low 23-33 [facility] Carbon dioxide, total [Moles /volume] in Central venous bloodOrdered By: Ted Mcghee on 11-27-2024 CO2 [Moles/Vol] 11.2 mmol/L Low 21.0-32.0 [facility] Chest PA and Lateralon 11-27 Chest PA and Lateral [facility] [address] [place] [address] Chest PA and Lateral MR#: [id number] Acct: [id number] Name: KALIE DESIR Rep #: [id number] : 2000 F 24 From: Nathan Sheldon MD PCP: Minnie Hodge Status: [facility] ER Study: Chest PA and Lateral Date of Exam: 11/27/24 Exam# [id number] Ordering Dr: Ted Mcghee MD EXAM: XR [...] No acute cardiopulmonary process. Reading Location: [facility] CC: Minnie Hodge; Dr. 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 Normal [facility] Chloride assayOrdered By: Shreya Mcghee on 11-27-2024 Chloride [Moles/Vol] 97 mmol/L Low 98-108 [facility] Emergency Department Summary on 11-27-2024 Emergency Department Summary [facility] Medical Records Department [address] [place] [address] Emergency Department Summary 11/27/24 MR#: [id number] Acct: [id number] Name: KALIE DESIR Rep #: [id number] : 2000 24 From: Ted Mcghee MD [...] similar symptoms: Yes Recent Illness/[facility]ospital[facility]ati [facility]: [facility] Medical History Obesity (BMI 30.0-34.9) Insulin dependent [...] you par (more content not included)... Normal [facility] Eosinophil percentageOrdered By: Ted Mcghee on 11-27-2024 Eosinophils/100 WBC (Bld) 0.0 % 0-5 [facility] Erythrocyte distribution wid th ratioOrdered By: eTd Mcghee on 11-27-2024 Erythrocyte distribution width (RBC) [Ratio] 12.9 % 11.6-14.6 [facility] Erythrocyte distribution wid th standard deviationOrdered By: Ted Mcghee on 11-27-2024 Erythrocyte distribution width (RBC) [Ratio] 40.5 fl 35.1-43.9 [facility] Glomerular filtration rate ( GFR) estimation/1.73 sq m using serum, plasma, or whole bOrdered By: Ted Mcghee on 11-27-2024 GFR/1.73 sq M.predicted among non-blacks MDRD (S/P/Bld) [Vol rate/Area] 102 mL/min/{1.73_m2} >60 [facility] Comment on above: mL/min/1.73m2 CKD-EP I Creatinine Equation (2020) [facility] deOrdered By: Zaida Hoff on 11-27-2024 Glucose [Mass/Vol] 199 mg/dL High 74-106 [facility] Comment on above: MANAGEMENT OF PATIEN T CARE PER NURSING PROTOCOL H AND P Exam - Hospitaliston 11-27-2024 H&P Exam - Hospitalist [facility] Medical Records Department [address] [place] [address] H P Exam - Hospitalist 11/27/24 1542 MR#: [id number] Acct: [id number] Name: KALIE DESIR Rep #: [id number] : 2000 24 From: Zaida Hoff MD PCP: Minnie Hodge Status:ADM IN Location: ICU [id number] HPI - General General Date of Admission: 11/27/24 Date of Service: 11/27/24 Chief Complaint: DKA HPI Narrative KALIE DESIR, is a Patient is a 24-year-old female with history of type 1 diabetes, cannabis emesis syndrome, asthma who presented to [facility] ED with her significant other 11/27/2024 [...] of a cough associated with her vomiting [facility] Medical History Obesity (BMI 30.0-34.9) Insulin dependent [...] alcohol intak (more content not included)... Normal [facility] Hematocrit Auto (Bld) [Volum e fraction]Ordered By: Ted Mcghee on 11-27-2024 Hematocrit (Bld) [Volume fraction] 44.4 % 37-47 [facility] Hemoglobin measurementOrdere d By: Ted Mcghee on 11-27-2024 Hemoglobin (Bld) [Mass/Vol] 14.9 g/dL 12.0-15.0 [facility] Hyaline casts LM.LPF (Urine sed) [#/Area]Ordered By: Ted Mcghee on 11-27-2024 Hyaline casts (Urine sed) [#/Area] 0 /[LPF] 0-5 [facility] Immature granulocytes/100 WB C Auto (Bld)Ordered By: Ted Mcghee on 11-27-2024 Immature granulocytes/100 WBC (Bld) 0.400 % 0.0-0.9 [facility] Comment on above: IG% - Immature Granu locytes (promyelocytes, myelocytes and metamyelocytes) > 1% indicates that a LEFT SHIFT is Present. Ketones Test strip Ql (U)Ord ered By: Ted Mcghee on 11-27-2024 Ketones Ql (U) 150 mg/dl Abnormal Negative [facility] Comment on above: CRITICAL VALUE *H MCV (mean corpuscular volume ) determinationOrdered By: Ted Mcghee on 11-27-2024 MCV (RBC) [Entitic vol] 86.4 fL 81-99 [facility] Magnesiumon 11-27-2024 Magnesium [Mass/Vol] 2.0 mg/dL Normal 1.5-2.2 [facility] Comment on above: Performed By: #### L 501.6901, L700.6800, L500.4050, L501.2450, L100.0100 #### [facility] [address] [place], [place], [address] Mean corpuscular hemoglobin (MCH) determinationOrdered By: Ted Mcghee on 11-27-2024 MCH (RBC) [Entitic mass] 29.0 pg 27.0-32.0 [facility] Mean corpuscular hemoglobin concentration (MCHC) determinationOrdered By: Ted Mcghee on 11-27-2024 MCHC (RBC) [Mass/Vol] 33.6 g/dL 32-36 [facility] Mean platelet volume determi nationOrdered By: Ted Mcghee on 11-27-2024 Platelet mean volume (Bld) [Entitic vol] 8.7 fL 6.2-12.0 [facility] Microscopic analysis of urin e for red blood cells (RBC)Ordered By: Ted Mcghee on 11-27-2024 Microscopic analysis of urine for red blood cells (RBC) 0 SEEN /hpf 0-5 [facility] Monocyte percentageOrdered B y: Ted Mcghee on 11-27-2024 Monocytes/100 WBC (Bld) 2.1 % 0-10 [facility] Mucus LM Ql (Urine sed)Order ed By: Ted Mcghee on 11-27-2024 Mucus Ql (Urine sed) 0 SEEN /hpf [facility] Neutrophil percentageOrdered By: Ted Mcghee on 11-27-2024 Neutrophils/100 WBC (Bld) 91.3 % High 47-70 [facility] Nitrite Test strip Ql (U)Ord ered By: Ted Mcghee on 11-27-2024 Nitrite Ql (U) Negative Negative [facility] No Panel InformationOrdered By: Ted Mcghee on 11-27-2024 Blood Gas Sample Site Not entered [facility] Blood Gas Specimen Type LUIS [facility] Oxygen Delivery Device Not entered [facility] Nucleated red blood cell per centageOrdered By: Ted Mcghee on 11-27-2024 Nucleated RBC/100 WBC (Bld) [Ratio] 0 % 0-5 [facility] Platelet countOrdered By: Shreya Mcghee on 11-27-2024 Platelets (Bld) [#/Vol] 410 10*3/uL 150-450 [facility] Potassium measurement (mass/ volume)Ordered By: Ted Mcghee on 11-27-2024 Potassium (Unsp spec) [Mass/Vol] 3.6 mmol/L 3.3-5.1 [facility] ,Urineon 11-27-2024 Beta HCG ( test) Ql (U) Negative Normal [facility] Comment on above: Order Comment: [id number] Result Comment: Very dilute urine specimens, as indicated by a low specific gravity, may not contain personal banking representative levels of hCG. If is still suspected, a first morning urine specimen should be collected 48 hours later and tested. Performed By: #### L 9000.0810 #### [facility] [address] [place], [address] Protein Test strip Ql (U)Ord ered By: Ted Mcghee on 11-27-2024 Protein Ql (U) 30 mg/dl High Negative [facility] RBC Auto (Bld) [#/Vol]Ordere d By: Ted Mcghee on 11-27-2024 RBC (Bld) [#/Vol] 5.14 10*6/uL 4.2-5.4 [facility] Serum creatinine measurement (mass/volume)Ordered By: Ted Mcghee on 11-27-2024 Creatinine [Mass/Vol] 0.82 mg/dL 0.70-1.20 [facility] Serum glucose measurement (m ass/volume)Ordered By: Ted Mcghee on 11-27-2024 Glucose [Mass/Vol] 335 mg/dL High 70-99 [facility] Serum or plasma calcium edward urement (mass/volume)Ordered By: Tedchirag Mcghee on 11-27-2024 Calcium [Mass/Vol] 10.0 mg/dL 7.6-11.0 [facility] Serum or plasma urea nitroge n measurement (mass/volume)Ordered By: Ted Mcghee on 11-27-2024 Urea nitrogen [Mass/Vol] 16 mg/dL 4-19 [facility] Sodium levelOrdered By: Tedchirag Mcghee on 11-27-2024 Sodium [Moles/Vol] 136 mmol/L 133-145 [facility] Squamous epithelial cells de tection in urine sediment by light microscopyOrdered By: Tedchirag Mcghee on 11-27-2024 Epithelial cells.squamous LM Ql (Urine sed) 0-5 SEEN /hpf 11-27 [facility] TSH DL <= 0.005 mIU/L QnOrde red By: Ted Mcghee on 11-27-2024 TSH Qn 3.740 uIU/mL 0.300-4.200 [facility] Thyroid Stim Hormone (TSH)on 11-27-2024 TSH 3.740 uIU/mL Normal 0.300-4.200 [facility] Comment on above: Performed By: #### L 9000.0810 #### [facility] [address] [place], [place], [id number] Urinalysis, Completeon 11-27 CAST,HYALINE 0-5 SEEN Normal 0-5 [facility] Comment on above: Order Comment: CRITI DONI VALUE CALLED TO SHALONDA TRUJILLO 11/27/24 [facility] Gaby Macdonald. RESULTS READ BACK BY SAME. CLEAN CATCH Performed By: #### L 400.0001 #### [facility] [address] [place], [place], [id number] EPI,SQUAMOUS 0-5 SEEN Normal 11-27 [facility] Comment on above: Order Comment: CRITI DONI VALUE CALLED TO SHALONDA TRUJILLO 11/27/24 1434 Gaby Macdonald. RESULTS READ BACK BY SAME. CLEAN CATCH Performed By: #### L [id number] #### [facility] [address] [place], [address] BACTERIA 0 SEEN Normal None Seen [facility] Comment on above: Order Comment: CRITI DONI VALUE CALLED TO SHALONDA TRUJILLO 11/27/24 1434 Gaby Macdonald. RESULTS READ BACK BY SAME. CLEAN CATCH Performed By: #### L [id number] #### [facility] [address] [place], [address] Mucus Ql (Urine sed) 0 SEEN Normal [facility] Comment on above: Order Comment: CRITI DONI VALUE CALLED TO SHALONDA SANDIA 11/27/24 1434 Gaby Macdonald. RESULTS READ BACK BY SAME. CLEAN CATCH Performed By: #### L [id number] #### [facility] [address] [place], [address] RBC 0 SEEN Normal 0-5 [facility] Comment on above: Order Comment: CRITI DONI VALUE CALLED TO SHALONDA SANDIA 11/27/24 [facility] Gaby Macdonald. RESULTS READ BACK BY SAME. CLEAN CATCH Performed By: #### L [id number] #### [facility] [address] [place], [address] WBC 0 SEEN Normal 0-5 [facility] Comment on above: Order Comment: CRITI DONI VALUE CALLED TO SHALONDA SANDIA 11/27/24 1434 Gaby Macdonald. RESULTS READ BACK BY SAME. CLEAN CATCH Performed By: #### L [id number] #### [facility] [address] [place], [address] Urine clarityOrdered By: Ted Mcghee on 11-27-2024 Clarity (U) Clear Clear [facility] Urine color determinationOrd ered By: Ted Mcghee on 11-27-2024 Color (U) Yellow Yellow [facility] Urine glucose detectionOrder ed By: Ted Mcghee on 11-27-2024 Glucose Ql (U) 1000 mg/dl High Normal [facility] Urine leukocyte esterase det ection by dipstickOrdered By: Ted Mcghee on 11-27-2024 Leukocyte esterase Test strip Ql (U) Negative Negative [facility] Urine pHOrdered By: Ted beard on 11-27-2024 pH (U) 5.0 [pH] 5.0 - 8.0 [facility] Urine testOrdered By: Zaida Hoff on 11-27-2024 HCG ( test) Ql (U) Negative [facility] Comment on above: Very dilute urine sp ecimens, as indicated by a low specificgravity, may not contain personal banking representative levels of hCG. If is still suspected, a first morning urinespecimen should be collected 48 hours later and tested. Urine sediment bacteria coun t by microscopy (number/high power field)Ordered By: Ted Mcghee on 11-27-2024 Bacteria LM.HPF (Urine sed) [#/Area] 0 /[HPF] None Seen [facility] Urine specific gravity measu rementOrdered By: Ted Mcghee on 11-27-2024 Specific gravity (U) [Rel density] 1.025 1.002-1.030 [facility] Urine urobilinogen measureme ntOrdered By: Ted Mcghee on 11-27-2024 Urobilinogen Ql (U) Normal mg/dl Normal [facility] Venous Blood Gason 5 Blood Gas Type LUIS Normal [facility] Comment on above: Performed By: #### L 9000.0810 #### [facility] [address] [facility] [place], [address] CO2 [Moles/Vol] 12 mmol/L Low 23-33 [facility] Comment on above: Performed By: #### L 9000.0810 #### [facility] [address] [place], [address] HCO3 (Bld) [Moles/Vol] 12 mmol/L Low 22-26 [facility] Comment on above: Performed By: #### L 9000.0810 #### [facility] [address] [place], [address] O2 Delivery Dev Not entered Normal [facility] Comment on above: Performed By: #### L 9000.0810 #### [facility] [address] [place], [address] SITE Not entered Normal [facility] Comment on above: Performed By: #### L 9000.0810 #### [facility] [address], [address] VBG BE -15 mmol/L Low -1.0-3.5 [facility] Comment on above: Performed By: #### L 9000.0810 #### [facility] [address] [place], [address] VBG pCO2 24.2 mmHg Low 41-51 [facility] Comment on above: Performed By: #### L 9000.0810 #### [facility] [address] [place], [address] VBG pH 7.29 Low 7.32-7.42 [facility] Comment on above: Performed By: #### L 9000.0810 #### [facility] [address] [place], [address] VBG PO2 80 mmHg High 25-40 [facility] Comment on above: Performed By: #### L 9000.0810 #### [facility] [address] [place], [address] VBG SO2 95 High 50-70 [facility] Comment on above: Performed By: #### L 9000.0810 #### [facility] [address] [place], [address] Venous blood base excess chloe surementOrdered By: Ted Mcghee on 11-27-2024 Base excess Calc (BldV) [Moles/Vol] -15 mmol/L Low -1.0-3.5 [facility] Venous blood bicarbonate chloe surementOrdered By: Ted Mcghee on 11-27-2024 HCO3 (Bld) [Moles/Vol] 12 mmol/L Low 22-26 [facility] Venous blood oxygen saturati on measurementOrdered By: Ted Mcghee on 11-27-2024 Oxygen saturation in Blood 95 % High 50-70 [facility] Venous blood pH measurementO rdered By: Ted Mcghee on 11-27-2024 pH (BldV) 7.29 [pH] Low 7.32-7.42 [facility] Venous blood partial pressur e of carbon dioxide measurementOrdered By: Ted Mcghee on 11-27-2024 CO2 (BldV) [Partial pressure] 24.2 mm[Hg] Low 41-51 [facility] Venous blood partial pressur e of oxygen measurementOrdered By: Ted Mcghee on 11-27-2024 Oxygen (BldV) [Partial pressure] 80 mm[Hg] High 25-40 [facility] White blood cell (WBC) count Ordered By: Tedchirag Mcghee on 11-27-2024 WBC (Bld) [#/Vol] 16.1 10*3/uL High 4.4-11.0 [facility] White blood cell countOrdere d By: Ted Mcghee on 11-27-2024 White blood cell count 0 SEEN /hpf 0-5 [facility] Absolute lymphocyte countOrd ered By: Damien Dewey on 11-26-2024 Lymphocytes Auto (Unsp spec) [#/Vol] 1.14 10*3/uL 0.83-4.51 [facility] Absolute neutrophil countOrd ered By: Damien Dewey on 11-26-2024 Neutrophils (Bld) [#/Vol] 7.3 10*3/uL 2.0-7.7 [facility] Anion gap in Serum or Plasma Ordered By: Damien Dewey on 11-26-2024 Anion gap [Moles/Vol] 16 mmol/L High 5-15 [facility] Automated lymphocyte count a s percentage of total leukocytesOrdered By: Damien Dewey on 11-26-2024 Lymphocytes/100 WBC Auto (Unsp spec) 13.0 % Low 19-41 [facility] BUN/creatinine ratioOrdered By: Damien Dewey on 11-26-2024 Urea nitrogen/Creatinine [Mass ratio] 22.8 mg/mg High 10-20 [facility] Basic Metabolic Profile (BMP )on 11-26-2024 BUN/CRE 22.8 RATIO High 10-20 [facility] Comment on above: Performed By: #### L 501.080 #### [facility] [address] [place], [address] Calcium [Mass/Vol] 8.1 mg/dL Normal 7.6-11.0 [facility] Comment on above: Performed By: #### L 501.080 #### [facility] [address] [place], [address] Chloride [Moles/Vol] 106 mmol/L Normal 98-108 [facility] Comment on above: Performed By: #### L 501.080 #### [facility] [address] [place], [address] CO2 [Moles/Vol] 18.7 mmol/L Low 21.0-32.0 [facility] Comment on above: Performed By: #### L 501.080 #### [facility] [address] [place], [address] Creatinine [Mass/Vol] 0.50 mg/dL Low 0.70-1.20 [facility] Comment on above: Performed By: #### L 501.080 #### [facility] [address] [place], [address] ECRCL 143.91 ml/min Normal 50-250 [facility] Comment on above: Performed By: #### L 501.080 #### [facility] [address] [place], [address] GAP 16 High 5-15 [facility] Comment on above: Performed By: #### L 501.080 #### [facility] [address] [place], [address] GFR/1.73 sq M.predicted among non-blacks MDRD (S/P/Bld) [Vol rate/Area] 133 mL/min/{1.73_m2} Normal >60 [facility] Comment on above: Result Comment: mL/m in/1.73m2 CKD-EPI Creatinine Equation (2020) Performed By: #### L 501.080 #### [facility] [address] [place], [address] Glucose [Mass/Vol] 231 mg/dL High 70-99 [facility] Comment on above: Performed By: #### L 501.080 #### [facility] [address] [place], [address] Potassium [Moles/Vol] 3.8 mmol/L Normal 3.3-5.1 [facility] Comment on above: Result Comment: Hemo lysis present, Results??could be affected. ?? Performed By: #### L 501.080 #### [facility] [address] [place], [address] Sodium [Moles/Vol] 141 mmol/L Normal 133-145 [facility] Comment on above: Performed By: #### L 501.080 #### [facility] [address] [place], [address] Urea nitrogen [Mass/Vol] 11 mg/dL Normal 4-19 [facility] Comment on above: Performed By: #### L 501.080 #### [facility] [address] [place], [address] Basophil percentageOrdered B y: Damien Dewey on 11-26-2024 Basophils/100 WBC (Bld) 0.6 % 0-1 [facility] Beta-Hydroxbytyrateon 2024 BETA-HYDROXYBUT 1.8 mmol/L Normal 0.0-0.3 [facility] Comment on above: Performed By: #### L 501.6901, L700.6800, L500.4050, L501.2450, L100.0100 #### [facility] [address] [place], [address] Beta-hydroxybutyrateOrdered By: Damien Dewey on 11-26-2024 Beta hydroxybutyrate [Mass/Vol] 1.8 mmol/L 0.0-0.3 [facility] Bilirubin Test strip Ql (U)O rdered By: Damien Dewey on 11-26-2024 Bilirubin Ql (U) Negative Negative [facility] Bilirubin, totalOrdered By: Damien Dewey on 11-26-2024 Bilirubin [Mass/Vol] 0.63 mg/dL 0.00-1.30 [facility] CBC W/Diff, Automatedon 050 Absolute Lymph 1.14 X10 3/uL Normal 0.83-4.51 [facility] Comment on above: Performed By: #### L 501.6901, L700.6800, L500.4050, L501.2450, L100.0100 #### [facility] [address] [place], [address] Absolute Neut 7.3 X10 3/uL Normal 2.0-7.7 [facility] Comment on above: Performed By: #### L [id number], L700.6800, L500.4050, L501.2450, L100.0100 #### [facility] [address] [place], [address] Basophils/100 WBC (Bld) 0.6 % Normal 0-1 [facility] Comment on above: Performed By: #### L [id number], L700.6800, L500.4050, L501.2450, L100.0100 #### [facility] [address] [place], [address] Eosinophils/100 WBC (Bld) 0.0 % Normal 0-5 [facility] Comment on above: Performed By: #### L [id number], L700.6800, L500.4050, L501.2450, L100.0100 #### [facility] [address] [place], [address] Erythrocyte distribution width (RBC) [Ratio] 12.5 % Normal 11.6-14.6 [facility] Comment on above: Performed By: #### L [id number], L700.6800, L500.4050, L501.2450, L100.0100 #### [facility] [address] [place], [address] Hematocrit (Bld) [Volume fraction] 44.2 % Normal 37-47 [facility] Comment on above: Performed By: #### L 501.6901, L700.6800, L500.4050, L501.2450, L100.0100 #### [facility] [address] [place], [address] Hemoglobin (Bld) [Mass/Vol] 15.1 g/dL High 12.0-15.0 [facility] Comment on above: Performed By: #### L 501.6901, L700.6800, L500.4050, L501.2450, L100.0100 #### [facility] [address] [place], [address] IG% 0.200 Normal 0.0-0.9 [facility] Comment on above: Result Comment: IG% - Immature Granulocytes (promyelocytes, myelocytes and metamyelocytes) > 1% indicates that a LEFT SHIFT is Present. Performed By: #### L 501.6901, L700.6800, L500.4050, L501.2450, L100.0100 #### [facility] [address] [place], [address] Lymphocytes/100 WBC (Bld) 13.0 % Low 19-41 [facility] Comment on above: Performed By: #### L 501.6901, L700.6800, L500.4050, L501.2450, L100.0100 #### [facility] [address] [place], [address] MCH (RBC) [Entitic mass] 28.5 pg Normal 27.0-32.0 [facility] Comment on above: Performed By: #### L 501.6901, L700.6800, L500.4050, L501.2450, L100.0100 #### [facility] [address] [place], [address] MCHC (RBC) [Mass/Vol] 34.2 g/dL Normal 32-36 [facility] Comment on above: Performed By: #### L 501.6901, L700.6800, L500.4050, L501.2450, L100.0100 #### [facility] [address] [place], [address] MCV (RBC) [Entitic vol] 83.4 fL Normal 81-99 [facility] Comment on above: Performed By: #### L 501.6901, L700.6800, L500.4050, L501.2450, L100.0100 #### [facility] [address] [place], [address] Monocytes/100 WBC (Bld) 2.7 % Normal 0-10 [facility] Comment on above: Performed By: #### L 501.6901, L700.6800, L500.4050, L501.2450, L100.0100 #### [facility] [address] [place], [address] Neutrophils/100 WBC (Bld) 83.5 % High 47-70 [facility] Comment on above: Performed By: #### L 501.6901, L700.6800, L500.4050, L501.2450, L100.0100 #### [facility] [address] [place], [address] Nucleated RBC (Bld) [#/Vol] 0 10*3/uL Normal 0-5 [facility] Comment on above: Performed By: #### L 501.6901, L700.6800, L500.4050, L501.2450, L100.0100 #### [facility] [address] [place], [address] Platelet mean volume (Bld) [Entitic vol] 9.0 fL Normal 6.2-12.0 [facility] Comment on above: Performed By: #### L 501.6901, L700.6800, L500.4050, L501.2450, L100.0100 #### [facility] [address] [place], [address] Platelets (Bld) [#/Vol] 368 10*3/uL Normal 150-450 [facility] Comment on above: Performed By: #### L 501.6901, L700.6800, L500.4050, L501.2450, L100.0100 #### [facility] [address] [place], [address] RBC (Bld) [#/Vol] 5.30 10*6/uL Normal 4.2-5.4 [facility] Comment on above: Performed By: #### L 501.6901, L700.6800, L500.4050, L501.2450, L100.0100 #### [facility] [address] [place], [address] RDW SD 37.8 fl Normal 35.1-43.9 [facility] Comment on above: Performed By: #### L 501.6901, L700.6800, L500.4050, L501.2450, L100.0100 #### [facility] [address] [place], [address] WBC (Bld) [#/Vol] 8.8 10*3/uL Normal 4.4-11.0 [facility] Comment on above: Performed By: #### L 501.6901, L700.6800, L500.4050, L501.2450, L100.0100 #### [facility] [address] [place], [address] CO2 (BldV) [Moles/Vol]Ordere d By: Damien Dewey on 11-26-2024 CO2 [Moles/Vol] 26 mmol/L 23-33 [facility] Carbon dioxide, total [Moles /volume] in Central venous bloodOrdered By: Damien Dewey on 11-26-2024 CO2 [Moles/Vol] 18.7 mmol/L Low 21.0-32.0 [facility] Chloride assayOrdered By: Deepika Dewey on 11-26-2024 Chloride [Moles/Vol] 106 mmol/L 98-108 [facility] Comprehensive Metabolic Prof ilon 11-26-2024 Albumin [Mass/Vol] 4.9 g/dL Normal 3.5-5.0 [facility] Comment on above: Performed By: #### L 501.6901, L700.6800, L500.4050, L501.2450, L100.0100 #### [facility] [address] [place], [address] Albumin/Globulin [Mass ratio] 1.5 {ratio} Normal 0.9-2.4 [facility] Comment on above: Performed By: #### L 501.6901, L700.6800, L500.4050, L501.2450, L100.0100 #### [facility] [address] [place], [address] ALK PHOS 136 U/L High 35-104 [facility] Comment on above: Performed By: #### L 501.6901, L700.6800, L500.4050, L501.2450, L100.0100 #### [facility] [address] [place], [address] ALT [Catalytic activity/Vol] 25 U/L Normal <=34 [facility] Comment on above: Performed By: #### L 501.6901, L700.6800, L500.4050, L501.2450, L100.0100 #### [facility] [address] [place], [address] AST [Catalytic activity/Vol] 38 U/L High <=31 [facility] Comment on above: Result Comment: Hemo lysis present, Results??could be affected. ?? Performed By: #### L 501.6901, L700.6800, L500.4050, L501.2450, L100.0100 #### [facility] [address] [place], [address] Bilirubin [Mass/Vol] 0.63 mg/dL Normal 0.00-1.30 [facility] Comment on above: Performed By: #### L 501.6901, L700.6800, L500.4050, L501.2450, L100.0100 #### [facility] [address] [place], [address] BUN/CRE 20.6 RATIO High 10-20 [facility] Comment on above: Performed By: #### L 501.6901, L700.6800, L500.4050, L501.2450, L100.0100 #### [facility] [address] [place], [address] Calcium [Mass/Vol] 10.4 mg/dL Normal 7.6-11.0 [facility] Comment on above: Performed By: #### L 501.6901, L700.6800, L500.4050, L501.2450, L100.0100 #### [facility] [address] [place], [address] Chloride [Moles/Vol] 95 mmol/L Low 98-108 [facility] Comment on above: Performed By: #### L 501.6901, L700.6800, L500.4050, L501.2450, L100.0100 #### [facility] [address] [place], [address] CO2 [Moles/Vol] 21.8 mmol/L Normal 21.0-32.0 [facility] Comment on above: Performed By: #### L 501.6901, L700.6800, L500.4050, L501.2450, L100.0100 #### [facility] [address] [place], [address] Creatinine [Mass/Vol] 0.68 mg/dL Low 0.70-1.20 [facility] Comment on above: Performed By: #### L 501.6901, L700.6800, L500.4050, L501.2450, L100.0100 #### [facility] [address] [place], [address] ECRCL 105.81 ml/min Normal 50-250 [facility] Comment on above: Performed By: #### L 501.6901, L700.6800, L500.4050, L501.2450, L100.0100 #### [facility] [address] [place], [address] GAP 22 High 5-15 [facility] Comment on above: Performed By: #### L 501.6901, L700.6800, L500.4050, L501.2450, L100.0100 #### [facility] [address] [place], [address] GFR/1.73 sq M.predicted among non-blacks MDRD (S/P/Bld) [Vol rate/Area] 123 mL/min/{1.73_m2} Normal >60 [facility] Comment on above: Result Comment: mL/m in/1.73m2 CKD-EPI Creatinine Equation (2020) Performed By: #### L 501.6901, L700.6800, L500.4050, L501.2450, L100.0100 #### [facility] [address] [place], [address] Globulin (S) [Mass/Vol] 3.2 g/dL Normal 2.2-4.2 [facility] Comment on above: Performed By: #### L 501.6901, L700.6800, L500.4050, L501.2450, L100.0100 #### [facility] [address] [place], [address] Glucose [Mass/Vol] 360 mg/dL High 70-99 [facility] Comment on above: Performed By: #### L 501.6901, L700.6800, L500.4050, L501.2450, L100.0100 #### [facility] [address] [place], [address] Potassium [Moles/Vol] 4.0 mmol/L Normal 3.3-5.1 [facility] Comment on above: Result Comment: Hemo lysis present, Results??could be affected. ?? Performed By: #### L 501.6901, L700.6800, L500.4050, L501.2450, L100.0100 #### [facility] [address] [place], [address] Sodium [Moles/Vol] 139 mmol/L Normal 133-145 [facility] Comment on above: Performed By: #### L 501.6901, L700.6800, L500.4050, L501.2450, L100.0100 #### [facility] [address] [place], [address] T PROT 8.1 g/dL Normal 5.9-8.4 [facility] Comment on above: Performed By: #### L 501.6901, L700.6800, L500.4050, L501.2450, L100.0100 #### [facility] [address] [place], [address] Urea nitrogen [Mass/Vol] 14 mg/dL Normal 4-19 [facility] Comment on above: Performed By: #### L 501.6901, L700.6800, L500.4050, L501.2450, L100.0100 #### [facility] [address] [place], [address] Emergency Department Summary on 11-26-2024 Emergency Department Summary [facility] Medical Records Department [address] [place] [address] Emergency Department Summary 11/26/24 MR#: [id number] Acct: [id number] Name: KALIE DESIR Rep #: [id number] : 2000 24 From: Damien Dewey DO [...] you participate in: walking and weight training jose/buddhism: None seatbelt use: always do you feel safe at home: Yes (more content not included)... Normal [facility] Eosinophil percentageOrdered By: Damien Dewey on 11-26-2024 Eosinophils/100 WBC (Bld) 0.0 % 0-5 [facility] Erythrocyte distribution wid th ratioOrdered By: Damien Dewey on 11-26-2024 Erythrocyte distribution width (RBC) [Ratio] 12.5 % 11.6-14.6 [facility] Erythrocyte distribution wid th standard deviationOrdered By: Damien Dewey on 11-26-2024 Erythrocyte distribution width (RBC) [Ratio] 37.8 fl 35.1-43.9 [facility] Glomerular filtration rate ( GFR) estimation/1.73 sq m using serum, plasma, or whole bOrdered By: Damien Dewey on 11-26-2024 GFR/1.73 sq M.predicted among non-blacks MDRD (S/P/Bld) [Vol rate/Area] 133 mL/min/{1.73_m2} >60 [facility] Comment on above: mL/min/1.73m2 CKD-EP I Creatinine Equation (2020) Hematocrit Auto (Bld) [Volum e fraction]Ordered By: Damien Dewey on 11-26-2024 Hematocrit (Bld) [Volume fraction] 44.2 % 37-47 [facility] Hemoglobin measurementOrdere d By: Damien Dewey on 11-26-2024 Hemoglobin (Bld) [Mass/Vol] 15.1 g/dL High 12.0-15.0 [facility] Immature granulocytes/100 WB C Auto (Bld)Ordered By: Damien Dewey on 11-26-2024 Immature granulocytes/100 WBC (Bld) 0.200 % 0.0-0.9 [facility] Comment on above: IG% - Immature Granu locytes (promyelocytes, myelocytes and metamyelocytes) > 1% indicates that a LEFT SHIFT is Present. Ketones Test strip Ql (U)Ord ered By: Damien Dewey on 11-26-2024 Ketones Ql (U) 150 mg/dl Abnormal Negative [facility] Comment on above: CRITICAL VALUE *HCRI TICAL VALUE CALLED TO [id number]/09/25 1024 Brittani Mora.RESULTS READ BACK BY SAME. Laboratory - Chemistry and C hemistry - challengeOrdered By: Damien Dewey on 11-26-2024 AST [Catalytic activity/Vol] 38 U/L High <32 [facility] Comment on above: Hemolysis present, R esults could be affected. Lipaseon 11-26-2024 Lipase [Catalytic activity/Vol] 11 U/L Low 13-75 [facility] Comment on above: Result Comment: Ilda nickerson note: LIPASE revised reference range effective 22. New Lipase methodology. Expected to produce lower values than the previous assay method. NEW Reference Range: 13 - 75 U/L Performed By: #### L 501.6901, L700.6800, L500.4050, L501.2450, L100.0100 #### [facility] [address] [place], [address] Lipase measurementOrdered By : Damien Dewey on 11-26-2024 Lipase [Catalytic activity/Vol] 11 U/L Low 13-75 [facility] Comment on above: Please note:LIPASE r evised reference range effective 22. New Lipase methodology. Expected to produce lower values than the previous assay method. NEW Reference Range: 13 - 75 U/L MCV (mean corpuscular volume ) determinationOrdered By: Damien Dewey on 11-26-2024 MCV (RBC) [Entitic vol] 83.4 fL 81-99 [facility] Mean corpuscular hemoglobin (MCH) determinationOrdered By: Damien Dewey on 11-26-2024 MCH (RBC) [Entitic mass] 28.5 pg 27.0-32.0 [facility] Mean corpuscular hemoglobin concentration (MCHC) determinationOrdered By: Damien Dewey on 11-26-2024 MCHC (RBC) [Mass/Vol] 34.2 g/dL 32-36 [facility] Mean platelet volume determi nationOrdered By: Damien Dewey on 11-26-2024 Platelet mean volume (Bld) [Entitic vol] 9.0 fL 6.2-12.0 [facility] Microscopic analysis of urin e for red blood cells (RBC)Ordered By: Damien Dewey on 11-26-2024 Microscopic analysis of urine for red blood cells (RBC) 0 SEEN /hpf 0-5 [facility] Monocyte percentageOrdered B y: Damien Dewey on 11-26-2024 Monocytes/100 WBC (Bld) 2.7 % 0-10 [facility] Mucus LM Ql (Urine sed)Order ed By: Damien Dewey on 11-26-2024 Mucus Ql (Urine sed) 0 SEEN /hpf [facility] Neutrophil percentageOrdered By: Damien Dewey on 11-26-2024 Neutrophils/100 WBC (Bld) 83.5 % High 47-70 [facility] Nitrite Test strip Ql (U)Ord ered By: Damien Dewey on 11-26-2024 Nitrite Ql (U) Negative Negative [facility] No Panel InformationOrdered By: Damien Dewey on 11-26-2024 Blood Gas Sample Site Not entered [facility] Blood Gas Specimen Type LUIS [facility] Oxygen Delivery Device Not entered [facility] Nucleated red blood cell per centageOrdered By: Damien Dewey on 11-26-2024 Nucleated RBC/100 WBC (Bld) [Ratio] 0 % 0-5 [facility] Platelet countOrdered By: Deepika Dewey on 11-26-2024 Platelets (Bld) [#/Vol] 368 10*3/uL 150-450 [facility] Potassium measurement (mass/ volume)Ordered By: Damien Dewey on 11-26-2024 Potassium (Unsp spec) [Mass/Vol] 3.8 mmol/L 3.3-5.1 [facility] Comment on above: Hemolysis present, R esults could be affected. ,Serum,hCG Quali.on 11-26-2024 HCG, SERUM QUAL Negative Normal [facility] Comment on above: Performed By: #### L 501.6901, L700.6800, L500.4050, L501.2450, L100.0100 #### [facility] [address] [place] [address], [address] Protein Test strip Ql (U)Ord ered By: Damien Dewey on 11-26-2024 Protein Ql (U) 30 mg/dl High Negative [facility] RBC Auto (Bld) [#/Vol]Ordere d By: Damien Dewey on 11-26-2024 RBC (Bld) [#/Vol] 5.30 10*6/uL 4.2-5.4 [facility] Serum beta-hCG test, qualita tiveOrdered By: Damien Dewey on 11-26-2024 Beta HCG ( test) Ql Negative [facility] Serum creatinine measurement (mass/volume)Ordered By: Damien Dewey on 11-26-2024 Creatinine [Mass/Vol] 0.50 mg/dL Low 0.70-1.20 [facility] Serum globulin measurementOr dered By: Damien Dewey on 11-26-2024 Globulin (S) [Mass/Vol] 3.2 g/dL 2.2-4.2 [facility] Serum glucose measurement (m ass/volume)Ordered By: Damien Dewey on 11-26-2024 Glucose [Mass/Vol] 231 mg/dL High 70-99 [facility] Serum or plasma alanine powers otransferase (ALT) measurementOrdered By: Damien Dewey on 11-26-2024 ALT [Catalytic activity/Vol] 25 U/L <35 [facility] Serum or plasma albumin edward urement (mass/volume)Ordered By: Damien Dewey on 11-26-2024 Albumin [Mass/Vol] 4.9 g/dL 3.5-5.0 [facility] Serum or plasma albumin/glob ulin mass ratioOrdered By: Damien Dewey on 11-26-2024 Albumin/Globulin [Mass ratio] 1.5 {ratio} 0.9-2.4 [facility] Serum or plasma alkaline harish sphatase measurementOrdered By: Damien Dewey on 11-26-2024 ALP [Catalytic activity/Vol] 136 U/L High 35-104 [facility] Serum or plasma calcium edward urement (mass/volume)Ordered By: Damien Dewey on 11-26-2024 Calcium [Mass/Vol] 8.1 mg/dL 7.6-11.0 [facility] Serum or plasma urea nitroge n measurement (mass/volume)Ordered By: Damien Dewey on 11-26-2024 Urea nitrogen [Mass/Vol] 11 mg/dL 4-19 [facility] Sodium levelOrdered By: Damien Dewey on 11-26-2024 Sodium [Moles/Vol] 141 mmol/L 133-145 [facility] Squamous epithelial cells de tection in urine sediment by light microscopyOrdered By: Damien Dewey on 11-26-2024 Epithelial cells.squamous LM Ql (Urine sed) 0-5 SEEN /hpf 5-10 [facility] Total proteinOrdered By: Arelis Dewey on 11-26-2024 Protein [Mass/Vol] 8.1 g/dL 5.9-8.4 [facility] Urinalysis, Completeon 11-26 EPI,SQUAMOUS 0-5 SEEN Normal 5-10 [facility] Comment on above: Order Comment: Call MD with results STAT Performed By: #### L 500.2500 #### [facility] [address] [place], [address] KETONE UR 150 mg/dl Abnormal Negative [facility] Comment on above: Order Comment: Call MD with results STAT Result Comment: CRIT ICAL VALUE *H CRITICAL VALUE CALLED TO AMURRAY 11/26/24 Claudia Mora. RESULTS READ BACK BY SAME. Performed By: #### L 500.2500 #### [facility] [address] [place], [address] BILIRUBIN URINE Negative Normal Negative [facility] Comment on above: Order Comment: Call MD with results STAT Performed By: #### L 500.2500 #### [facility] [address] [place], [address] Clarity (U) Clear Normal Clear [facility] Comment on above: Order Comment: Call MD with results STAT Performed By: #### L 500.2500 #### [facility] [address] [place], [address] Color (U) Yellow Normal Yellow [facility] Comment on above: Order Comment: Call MD with results STAT Performed By: #### L 500.2500 #### [facility] [address] [place], [address] GLUCOSE, UR 250 mg/dl Abnormal Normal [facility] Comment on above: Order Comment: Call MD with results STAT Performed By: #### L 500.2500 #### [facility] [address] [place], [address] LEUK ESTERASE Negative Normal Negative [facility] Comment on above: Order Comment: Call MD with results STAT Performed By: #### L 500.2500 #### [facility] [address] [place], [address] Nitrite Ql (U) Negative Normal Negative [facility] Comment on above: Order Comment: Call MD with results STAT Performed By: #### L 500.2500 #### [facility] [address] [place], [address] OCCULT BLOOD-UR Negative Normal Negative [facility] Comment on above: Order Comment: Call MD with results STAT Performed By: #### L 500.2500 #### [facility] [address] [place], [address] pH UR 8.0 Normal 5.0 - 8.0 [facility] Comment on above: Order Comment: Call MD with results STAT Performed By: #### L 500.2500 #### [facility] [address] [place], [address] PROT DIPSTX 30 mg/dl Abnormal Negative [facility] Comment on above: Order Comment: Call MD with results STAT Performed By: #### L 500.2500 #### [facility] [address] [place], [address] SP.GR. DIPSTX 1.010 Normal 1.002-1.030 [facility] Comment on above: Order Comment: Call MD with results STAT Performed By: #### L 500.2500 #### [facility] [address] [place], [address] UROBILI Normal Normal Normal [facility] Comment on above: Order Comment: Call MD with results STAT Performed By: #### L 500.2500 #### [facility] [address] [place], [address] BACTERIA 0 SEEN Normal None Seen [facility] Comment on above: Order Comment: Call MD with results STAT Performed By: #### L 500.2500 #### [facility] [address] [place], [address] Mucus Ql (Urine sed) 0 SEEN Normal [facility] Comment on above: Order Comment: Call MD with results STAT Performed By: #### L 500.2500 #### [facility] [address] [place], [address] RBC 0 SEEN Normal 0-5 [facility] Comment on above: Order Comment: Call MD with results STAT Performed By: #### L 500.2500 #### [facility] [address] [place], [place], [address] WBC 0 SEEN Normal 0-5 [facility] Comment on above: Order Comment: Call MD with results STAT Performed By: #### L 500.2500 #### [facility] [address] [place], [place], [address] Urine clarityOrdered By: Arelis Dewey on 11-26-2024 Clarity (U) Clear Clear [facility] Urine color determinationOrd ered By: Damien Dewey on 11-26-2024 Color (U) Yellow Yellow [facility] Urine glucose detectionOrder ed By: Damien Dewey on 11-26-2024 Glucose Ql (U) 250 mg/dl High Normal [facility] Urine leukocyte esterase det ection by dipstickOrdered By: Damien Dewey on 11-26-2024 Leukocyte esterase Test strip Ql (U) Negative Negative [facility] Urine pHOrdered By: Damien busby on 11-26-2024 pH (U) 8.0 [pH] 5.0 - 8.0 [facility] Urine sediment bacteria coun t by microscopy (number/high power field)Ordered By: Damien Dewey on 11-26-2024 Bacteria LM.HPF (Urine sed) [#/Area] 0 /[HPF] None Seen [facility] Urine specific gravity measu rementOrdered By: Damien Dewey on 11-26-2024 Specific gravity (U) [Rel density] 1.010 1.002-1.030 [facility] Urine urobilinogen measureme ntOrdered By: Damien Dewey on 11-26-2024 Urobilinogen Ql (U) Normal mg/dl Normal [facility] Venous Blood Gason Blood Gas Type LUIS Normal [facility] Comment on above: Performed By: #### L 500.2500 #### [facility] [address] [place], [place], [address] CO2 [Moles/Vol] 26 mmol/L Normal 23-33 [facility] Comment on above: Performed By: #### L 500.2500 #### [facility] [address] [place], [address] HCO3 (Bld) [Moles/Vol] 25 mmol/L Normal 22-26 [facility] Comment on above: Performed By: #### L 500.2500 #### [facility] [address] [place], [address] O2 Delivery Dev Not entered Normal [facility] Comment on above: Performed By: #### L 500.2500 #### [facility] [address] [place], [address] SITE Not entered Normal [facility] Comment on above: Performed By: #### L 500.2500 #### [facility] [address] [place], [address] VBG BE 2 mmol/L Normal -1.0-3.5 [facility] Comment on above: Performed By: #### L 500.2500 #### [facility] [address] [place], [address] VBG pCO2 32.3 mmHg Low 41-51 [facility] Comment on above: Performed By: #### L 500.2500 #### [facility] [address] [place], [address] VBG pH 7.50 High 7.32-7.42 [facility] Comment on above: Performed By: #### L 500.2500 #### [facility] [address] [place], [address] VBG PO2 113 mmHg High 25-40 [facility] Comment on above: Performed By: #### L 500.2500 #### [facility] [address] [place], [address] VBG SO2 99 High 50-70 [facility] Comment on above: Performed By: #### L 500.2500 #### [facility] [address] [place], [address] Venous blood base excess chloe surementOrdered By: Damien Dewey on 11-26-2024 Base excess Calc (BldV) [Moles/Vol] 2 mmol/L -1.0-3.5 [facility] Venous blood bicarbonate chloe surementOrdered By: Damien Dewey on 11-26-2024 HCO3 (Bld) [Moles/Vol] 25 mmol/L 22-26 [facility] Venous blood oxygen saturati on measurementOrdered By: Damien Dewey on 11-26-2024 Oxygen saturation in Blood 99 % High 50-70 [facility] Venous blood pH measurementO rdered By: Damien Dewey on 11-26-2024 pH (BldV) 7.50 [pH] High 7.32-7.42 [facility] Venous blood partial pressur e of carbon dioxide measurementOrdered By: Damien Dewey on 11-26-2024 CO2 (BldV) [Partial pressure] 32.3 mm[Hg] Low 41-51 [facility] Venous blood partial pressur e of oxygen measurementOrdered By: Damien Dewey on 11-26-2024 Oxygen (BldV) [Partial pressure] 113 mm[Hg] High 25-40 [facility] White blood cell (WBC) count Ordered By: Damien Dewey on 11-26-2024 WBC (Bld) [#/Vol] 8.8 10*3/uL 4.4-11.0 [facility] White blood cell countOrdere d By: Damien Dewey on 11-26-2024 White blood cell count 0 SEEN /hpf 0-5 [facility] Button Attaching Machine Operator Office Visit Reporton 11-11-2024 Button Attaching Machine Operator Office Visit Report [facility]'[address], [address] [place] [address] OFFICE VISIT Date of Service: 11/11/24 MR#: [id number] Acct: [id number] Name: KALIE DESIR Rep #: [id number] : 2000 Provider: MORALES Turcios ams Age/Sex: 24/F Location: [facility] Status: Signed Intake Vital Signs 09/13/24 09:24 10/04/24 13:40 11/11/24 14:24 Height 4 ft 9 in 4 ft 11 in 4 ft 11 in Weight: 147 lb 2 oz BMI 29.7 BP 117/79 Intake Visit Reasons: Nexplanon Removal Chief Complaint: Nexplanon Removal Section Repairer Required: No Is patient in pain?: No [...] you participate in: walking and weight training jose/buddhism: None seatbelt use: always do you feel [...] reviewed a (more content not included)... Normal [facility] Emergency Department Summary on 10-04-2024 Emergency Department Summary [facility] Medical Records Department [address] [place] [address] Emergency Department Summary 10/04/24 MR#: [id number] Acct: [id number] Name: KALIE DESIR Rep #: [id number] : 2000 24 From: [place] DO [...] you participate in: walking and weight training jose/buddhism: None seatbelt use: always do you feel [...] Method R (more content not included)... Normal [facility] Finger(s) Min 2 Viewson 09-18 Finger(s) Min 2 Views [facility] [address] [place], [place] [address] Finger(s) Min 2 Views MR#: [id number] Acct: [id number] Name: KALIE DESIR Rep #: [id number] : 2000 F 24 From: Jackeline Arenas PCP: Minnie Hodge Status: PRE ER Study: Finger(s) Min 2 Views Date of Exam: 10/04/24 Exam# [id number] Ordering Dr: Provider,Ed P. PROCEDURE: FINGER(S) MIN 2 VIEWS 10/04/2024 REASON FOR EXAM: PAIN TECHNIQUE: 3 view(s) of the right thumb COMPARISON: None RAD/Finger(s) Min 2 Views IMPRESSION: Mild degenerative changes are seen both of the right 1st interphalangeal joint and the 1st carpal- metacarpal joint. No significant degree of joint narrowing is seen. No fracture or dislocation is evident. 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 Normal [facility] Button Attaching Machine Operator Office Visit Reporton 09-13-2024 Button Attaching Machine Operator Office Visit Report [facility]'s [address], [address] [place] [address] OFFICE VISIT Date of Service: 09/13/24 MR#: [id number] Acct: [id number] Name: KALIE DESIR Rep #: [id number] : 2000 Provider: DONOVAN Olivo Age/Sex: 24/F Location: [facility] Status: Signed Intake Vital Signs 05/13/24 09:12 09/13/24 09:15 09/13/24 09:24 Height 4 ft 9 in 4 ft 9 in 4 ft 9 in Weight: 153 lb BMI 33.0 BP 120/78 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 Normal [facility] 08-19-2024 [facility] Telephone (4CQ) THANGKALIE Jose Enrique ([id number]) 2000 F Date Time Provider Department 08/19/24 [...] MD 08/19/2024 12:26 PM Signed Filed order Aciha Hines RN 08/19/2024 12:33 PM Signed Patient notified and voiced understanding. Transferred to [facility] to schedule. Aicha Hines RN Allergies As of Date: 08/19/2024 Noted Allergy Reaction BEE VENOM PROTEIN (HONEY BEE) 07/23/2022 10 - Anaphylaxis MELATONIN 06/07/2021 6 - Diarrhea PREDNISONE 05/12/2019 11 - Vomiting SULFATRIM DS 12/31/2011 11 - Vomiting Date Reviewed: 08/18/2024 Reviewed by: Jacqui Coronado MA - Fully Assessed Primary Visit Diagnosis:Nexplanon removal [Z30.46] Order(s):NEXPLANON REMOVAL [5973534] Order #: [id number] Prescriptions as of 08/19/2024 - amoxicillin-clavulana te potassium (AUGMENTIN) 875-125 mg per tablet Take 1 tablet by mouth two times a day for 7 days. - fluticasone (FLONASE) 50 mcg/actuation nasal spray Use 2 Sprays in each nostril once daily. Rinse mouth after use. - insulin glargine (BASAGLAR KWIKPEN U-100 INSULIN) 100 unit/mL (3 mL) Inject 20 units daily - Insulin [place], Disposable, (PEN NEEDLE) 32 gauge x 5/32 [...] Encounter Status:Closed by AICHA HINES on 08/19/24 [facility] CNOVon 08-18-2024 CNOV Office Visit (UCWSTR ) KALIE DESIR ([id number]) 2000 F Date Time Provider Department 08/18/24 12:45 PM ARIS CHOW [facility] During your visit today, we recorded the following information about you: Temperature Pulse Respiration Blood pressure 98.1 degrees 102/minute 16/minute 122/70 Weight 66.4 kg Aris Chow APRN.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 MANAGER 08/18/2024 1:00 PM Signed Subjective HPI HPI [...] (3 mL) Inject 20 units daily Insulin [place], Disposable, (PEN NEEDLE) 32 gauge x Uses [...] No cervical (more content not included)... [facility] Telephone (ENWSTR) KALIE DESIR ([id number]) 2000 F Date Time Provider Department 06/15/24 VERONIKA DORADO During your visit today, we recorded the following information about you: Lisbeth North 06/15/2024 12:25 PM Signed [facility] called and stated they need to know the maximum units per day the patient is taking for the Novolog. Please advise Nadya Tong RN 06/15/2024 2:21 PM Signed Per [facility] in [place], Pt requested that the Rx be transferred to [facility] in [place] today. Called pharmacist at [facility] to notify them that per the last Rx written by eVronika Dorado, TDD was 60 units for Novolog. [...] mL) Inject 20 units daily - Insulin [place], Disposable, (PEN NEEDLE) 32 gauge x 5/32 [...] Status:Closed by NADYA TONG on 06/15/24 Normal [facility] Basic Metabolic Profile (BMP )on 05-14-2024 BUN/CRE 10.2 RATIO Normal 05-09 [facility] Comment on above: Order Comment: Call MD with results STAT Performed By: #### L 9000.0810 #### [facility] [address] [place], [place], [address] CA,Total 8.3 mg/dL Low 8.5-10.1 [facility] Comment on above: Order Comment: Call MD with results STAT Performed By: #### L 9000.0810 #### [facility] [address] [place], [address] Chloride [Moles/Vol] 112 mmol/L High 98-107 [facility] Comment on above: Order Comment: Call MD with results STAT Performed By: #### L 9000.0810 #### [facility] [address] [place], [address] CO2 [Moles/Vol] 21.0 mmol/L Normal 21.0-32.0 [facility] Comment on above: Order Comment: Call MD with results STAT Performed By: #### L 9000.0810 #### [facility] [address] [place], [address] Creatinine [Mass/Vol] 0.79 mg/dL Normal 0.55-1.02 [facility] Comment on above: Order Comment: Call MD with results STAT Result Comment: The validity of the calculated GFR GFRAA in patients over 70 years has not been determined. Clinical correlation is essential. Performed By: #### L 9000.0810 #### [facility] [address] [place], [address] ECRCL 89.44 ml/min Normal [facility] Comment on above: Order Comment: Call MD with results STAT Performed By: #### L 9000.0810 #### [facility] [address] [place], [address] EST GFR - AA 114 mL/min Normal >60 [facility] Comment on above: Order Comment: Call MD with results STAT Result Comment: Afri can Russian GFR Calc Performed By: #### L 9000.0810 #### [facility] [address] [place], [address] GAP 6 Normal 5-15 [facility] Comment on above: Order Comment: Call MD with results STAT Performed By: #### L 9000.0810 #### [facility] [address] [place], [address] GFR/1.73 sq M.predicted among non-blacks MDRD (S/P/Bld) [Vol rate/Area] 94 mL/min/{1.73_m2} Normal >60 [facility] Comment on above: Order Comment: Call MD with results STAT Result Comment: Non- GFR Calc Performed By: #### L 9000.0810 #### [facility] [address] [place], [address] Glucose [Mass/Vol] 221 mg/dL High 74-106 [facility] Comment on above: Order Comment: Call MD with results STAT Result Comment: Gluc ose result greater than or equal to 200 mg/dL suggests DIABETES MELLITUS per A.D.A. criteria. Performed By: #### L 9000.0810 #### [facility] [address] [place], [address] Potassium [Moles/Vol] 3.0 mmol/L Low 3.5-5.1 [facility] Comment on above: Order Comment: Call MD with results STAT Performed By: #### L 9000.0810 #### [facility] [address] [place], [address] Sodium [Moles/Vol] 139 mmol/L Normal 136-145 [facility] Comment on above: Order Comment: Call MD with results STAT Performed By: #### L 9000.0810 #### [facility] [address] [place], [address] Urea nitrogen [Mass/Vol] 8 mg/dL Normal 7-18 [facility] Comment on above: Order Comment: Call MD with results STAT Performed By: #### L 9000.0810 #### [facility] [address] [place], [address] BUN Normal 7-18 [facility] Comment on above: Order Comment: Call MD with results STAT Result Comment: Sharon junior via OM: Order Changed Performed By: #### L 500.2500 #### [facility] [address] [place], [address] BUN/CRE Normal 10-20 [facility] Comment on above: Order Comment: Call MD with results STAT Result Comment: Sharon elled via OM: Order Changed Performed By: #### L 500.2500 #### [facility] [address] [place], [address] CA,Total Normal 8.5-10.1 [facility] Comment on above: Order Comment: Call MD with results STAT Result Comment: Sharon elled via OM: Order Changed Performed By: #### L 500.2500 #### [facility] [address] [place], [address] CL Normal 98-107 [facility] Comment on above: Order Comment: Call MD with results STAT Result Comment: Sharon elled via OM: Order Changed Performed By: #### L 500.2500 #### [facility] [address] [place], [address] CO2 Normal 21.0-32.0 [facility] Comment on above: Order Comment: Call MD with results STAT Result Comment: Sharon elled via OM: Order Changed Performed By: #### L 500.2500 #### [facility] [address] [place], [address] CREAT,SERUM Normal 0.55-1.02 [facility] Comment on above: Order Comment: Call MD with results STAT Result Comment: Sharon elled via OM: Order Changed Performed By: #### L 500.2500 #### [facility] [address] [place], [address] EST GFR Normal >60 [facility] Comment on above: Order Comment: Call MD with results STAT Result Comment: hSaron elled via OM: Order Changed Performed By: #### L 500.2500 #### [facility] [address] [place], [address] EST GFR - AA Normal >60 [facility] Comment on above: Order Comment: Call MD with results STAT Result Comment: Canc elled via OM: Order Changed Performed By: #### L 500.2500 #### [facility] [address] [place], [address] GAP Normal 5-15 [facility] Comment on above: Order Comment: Call MD with results STAT Result Comment: Canc elled via OM: Order Changed Performed By: #### L [id number] #### [facility] [address] [place], [address] GLU Normal 74-106 [facility] Comment on above: Order Comment: Call MD with results STAT Result Comment: Canc elled via OM: Order Changed Performed By: #### L [id number] #### [facility] [address] [place], [address] Potassium Normal 3.5-5.1 [facility] Comment on above: Order Comment: Call MD with results STAT Result Comment: Canc elled via OM: Order Changed Performed By: #### L [id number] #### [facility] [address] [place], [address] Basic Metabolic Profile (BMP) Normal 136-145 [facility] Comment on above: Order Comment: Call MD with results STAT Result Comment: Canc elled via OM: Order Changed Performed By: #### L [id number] #### [facility] [address] [place], [address] Bedside Glucoseon 05-14-2024 FINGERSTICK GLU 233 mg/dL High 74-106 [facility] Comment on above: Result Comment: FAY HANNAHENT OF PATIENT CARE PER NURSING PROTOCOL Performed By: #### L [id number], L700.6800, L500.4050, L501.2450, L100.0100 #### [facility] [address] [place], [address] FINGERSTICK GLU 268 mg/dL High 74-106 [facility] Comment on above: Result Comment: FAY ARCINIEGA OF PATIENT CARE PER NURSING PROTOCOL Performed By: #### L [id number], L700.6800, L500.4050, L501.2450, L100.0100 #### [facility] [address] [place], [address] Acetone Serumon 05-13-2024 ACETONE SERUM SMALL Abnormal NEG [facility] Comment on above: Performed By: #### L 400.0001 #### [facility] [address] [place], [address] ACETONE SERUM MODERATE Abnormal NEG [facility] Comment on above: Performed By: #### L [id number], L700.6800, L500.4050, L501.2450, L100.0100 #### [facility] [address] [place], [address] Basic Metabolic Profile (BMP )on 05-13-2024 BUN Normal 7-18 [facility] Comment on above: Order Comment: Call MD with results STAT Result Comment: DUPL ICATE Performed By: #### L 501.080 #### [facility] [address] [place], [address] BUN/CRE Normal 10-20 [facility] Comment on above: Order Comment: Call MD with results STAT Result Comment: DUPL ICATE Performed By: #### L 501.080 #### [facility] [address] [place], [address] CA,Total Normal 8.5-10.1 [facility] Comment on above: Order Comment: Call MD with results STAT Result Comment: DUPL ICATE Performed By: #### L 501.080 #### [facility] [address] [place], [address] CL Normal 98-107 [facility] Comment on above: Order Comment: Call MD with results STAT Result Comment: DUPL ICATE Performed By: #### L 501.080 #### [facility] [address] [place], [address] CO2 Normal 21.0-32.0 [facility] Comment on above: Order Comment: Call MD with results STAT Result Comment: DUPL ICATE Performed By: #### L 501.080 #### [facility] [address] [place], [address] CREAT,SERUM Normal 0.55-1.02 [facility] Comment on above: Order Comment: Call MD with results STAT Result Comment: DUPL ICATE Performed By: #### L 501.080 #### [facility] [address] [place], [address] EST GFR Normal >60 [facility] Comment on above: Order Comment: Call MD with results STAT Result Comment: DUPL ICATE Performed By: #### L 501.080 #### [facility] [address] [place], [address] EST GFR - AA Normal >60 [facility] Comment on above: Order Comment: Call MD with results STAT Result Comment: DUPL ICATE Performed By: #### L 501.080 #### [facility] [address] [place], [address] GAP Normal 5-15 [facility] Comment on above: Order Comment: Call MD with results STAT Result Comment: DUPL ICATE Performed By: #### L 501.080 #### [facility] [address] [place], [address] GLU Normal 74-106 [facility] Comment on above: Order Comment: Call MD with results STAT Result Comment: DUPL ICATE Performed By: #### L 501.080 #### [facility] [address] [place], [address] Potassium Normal 3.5-5.1 [facility] Comment on above: Order Comment: Call MD with results STAT Result Comment: DUPL ICATE Performed By: #### L 501.080 #### [facility] [address] [place], [address] Basic Metabolic Profile (BMP) Normal 136-145 [facility] Comment on above: Order Comment: Call MD with results STAT Result Comment: DUPL ICATE Performed By: #### L 501.080 #### [facility] [address] [place], [address] BUN Normal 7-18 [facility] Comment on above: Order Comment: Call MD with results STAT Result Comment: DUPL ICATE Performed By: #### L 501.080 #### [facility] [address] [place], [address] BUN/CRE Normal 10-20 [facility] Comment on above: Order Comment: Call MD with results STAT Result Comment: DUPL ICATE Performed By: #### L 501.080 #### [facility] [address] [place], [address] CA,Total Normal 8.5-10.1 [facility] Comment on above: Order Comment: Call MD with results STAT Result Comment: DUPL ICATE Performed By: #### L 501.080 #### [facility] [address] [place], [address] CL Normal 98-107 [facility] Comment on above: Order Comment: Call MD with results STAT Result Comment: DUPL ICATE Performed By: #### L 501.080 #### [facility] [address] [place], [address] CO2 Normal 21.0-32.0 [facility] Comment on above: Order Comment: Call MD with results STAT Result Comment: DUPL ICATE Performed By: #### L 501.080 #### [facility] [address] [place], [address] CREAT,SERUM Normal 0.55-1.02 [facility] Comment on above: Order Comment: Call MD with results STAT Result Comment: DUPL ICATE Performed By: #### L 501.080 #### [facility] [address] [place], [address] EST GFR Normal >60 [facility] Comment on above: Order Comment: Call MD with results STAT Result Comment: DUPL ICATE Performed By: #### L 501.080 #### [facility] [address] [place], [address] EST GFR - AA Normal >60 [facility] Comment on above: Order Comment: Call MD with results STAT Result Comment: DUPL ICATE Performed By: #### L 501.080 #### [facility] [address] [place], [address] GAP Normal 5-15 [facility] Comment on above: Order Comment: Call MD with results STAT Result Comment: DUPL ICATE Performed By: #### L 501.080 #### [facility] [address] [place], [address] GLU Normal 74-106 [facility] Comment on above: Order Comment: Call MD with results STAT Result Comment: DUPL ICATE Performed By: #### L 501.080 #### [facility] [address] [place], [address] Potassium Normal 3.5-5.1 [facility] Comment on above: Order Comment: Call MD with results STAT Result Comment: DUPL ICATE Performed By: #### L 501.080 #### [facility] [address] [place], [address] Basic Metabolic Profile (BMP) Normal 136-145 [facility] Comment on above: Order Comment: Call MD with results STAT Result Comment: DUPL ICATE Performed By: #### L 501.080 #### [facility] [address] [place], [address] BUN/CRE 10.9 RATIO Normal 10-20 [facility] Comment on above: Order Comment: Call MD with results STAT Performed By: #### L 501.080 #### [facility] [address] [place], [address] CA,Total 8.0 mg/dL Low 8.5-10.1 [facility] Comment on above: Order Comment: Call MD with results STAT Performed By: #### L 501.080 #### [facility] [address] [place], [address] Chloride [Moles/Vol] 115 mmol/L High 98-107 [facility] Comment on above: Order Comment: Call MD with results STAT Performed By: #### L 501.080 #### [facility] [address] [place], [address] CO2 [Moles/Vol] 17.0 mmol/L Low 21.0-32.0 [facility] Comment on above: Order Comment: Call MD with results STAT Performed By: #### L 501.080 #### [facility] [address] [place], [address] Creatinine [Mass/Vol] 0.82 mg/dL Normal 0.55-1.02 [facility] Comment on above: Order Comment: Call MD with results STAT Result Comment: The validity of the calculated GFR GFRAA in patients over 70 years has not been determined. Clinical correlation is essential. Performed By: #### L 501.080 #### [facility] [address] [place], [address] ECRCL 86.17 ml/min Normal [facility] Comment on above: Order Comment: Call MD with results STAT Performed By: #### L 501.080 #### [facility] [address] [place], [address] EST GFR - AA 108 mL/min Normal >60 [facility] Comment on above: Order Comment: Call MD with results STAT Result Comment: Afri can Russian GFR Calc Performed By: #### L 501.080 #### [facility] [address] [place], [address] GAP 7 Normal 5-15 [facility] Comment on above: Order Comment: Call MD with results STAT Performed By: #### L 501.080 #### [facility] [address] [place], [address] GFR/1.73 sq M.predicted among non-blacks MDRD (S/P/Bld) [Vol rate/Area] 89 mL/min/{1.73_m2} Normal >60 [facility] Comment on above: Order Comment: Call MD with results STAT Result Comment: Non- GFR Calc Performed By: #### L 501.080 #### [facility] [address] [place], [address] Glucose [Mass/Vol] 184 mg/dL High 74-106 [facility] Comment on above: Order Comment: Call MD with results STAT Result Comment: Fast ing Glucose result greater than or equal to 126 mg/dL suggests DIABETES MELLITUS per A.D.A. criteria. Performed By: #### L 501.080 #### [facility] [address] [place], [address] Potassium [Moles/Vol] 3.8 mmol/L Normal 3.5-5.1 [facility] Comment on above: Order Comment: Call MD with results STAT Performed By: #### L 501.080 #### [facility] [address] [place], [address] Sodium [Moles/Vol] 139 mmol/L Normal 136-145 [facility] Comment on above: Order Comment: Call MD with results STAT Performed By: #### L 501.080 #### [facility] [address] [place], [address] Urea nitrogen [Mass/Vol] 9 mg/dL Normal 7-18 [facility] Comment on above: Order Comment: Call MD with results STAT Performed By: #### L 501.080 #### [facility] [address] [place], [address] BUN/CRE 10.9 RATIO Normal 10-20 [facility] Comment on above: Order Comment: Call MD with results STAT Performed By: #### L [id number], L700.6800, L500.4050, L501.2450, L100.0100 #### [facility] [address] [place], [address] CA,Total 8.0 mg/dL Low 8.5-10.1 [facility] Comment on above: Order Comment: Call MD with results STAT Performed By: #### L [id number], L700.6800, L500.4050, L501.2450, L100.0100 #### [facility] [address] [place], [address] Chloride [Moles/Vol] 115 mmol/L High 98-107 [facility] Comment on above: Order Comment: Call MD with results STAT Performed By: #### L [id number], L700.6800, L500.4050, L501.2450, L100.0100 #### [facility] [address] [place], [address] CO2 [Moles/Vol] 15.0 mmol/L Low 21.0-32.0 [facility] Comment on above: Order Comment: Call MD with results STAT Performed By: #### L [id number], L700.6800, L500.4050, L501.2450, L100.0100 #### [facility] [address] [place], [address] Creatinine [Mass/Vol] 0.92 mg/dL Normal 0.55-1.02 [facility] Comment on above: Order Comment: Call MD with results STAT Result Comment: The validity of the calculated GFR GFRAA in patients over 70 years has not been determined. Clinical correlation is essential. Performed By: #### L 501.6901, L700.6800, L500.4050, L501.2450, L100.0100 #### [facility] [address] [place], [address] ECRCL 76.80 ml/min Normal [facility] Comment on above: Order Comment: Call MD with results STAT Performed By: #### L [id number], L700.6800, L500.4050, L501.2450, L100.0100 #### [facility] [address] [place], [address] EST GFR - AA 95 mL/min Normal >60 [facility] Comment on above: Order Comment: Call MD with results STAT Result Comment: Afri can Russian GFR Calc Performed By: #### L [id number], L700.6800, L500.4050, L501.2450, L100.0100 #### [facility] [address] [place], [address] GAP 11 Normal 5-15 [facility] Comment on above: Order Comment: Call MD with results STAT Performed By: #### L [id number], L700.6800, L500.4050, L501.2450, L100.0100 #### [facility] [address] [place], [address] GFR/1.73 sq M.predicted among non-blacks MDRD (S/P/Bld) [Vol rate/Area] 78 mL/min/{1.73_m2} Normal >60 [facility] Comment on above: Order Comment: Call MD with results STAT Result Comment: Non- GFR Calc Performed By: #### L 501.6901, L700.6800, L500.4050, L501.2450, L100.0100 #### [facility] [address] [place], [address] Glucose [Mass/Vol] 233 mg/dL High 74-106 [facility] Comment on above: Order Comment: Call MD with results STAT Result Comment: Gluc ose result greater than or equal to 200 mg/dL suggests DIABETES MELLITUS per A.D.A. criteria. Performed By: #### L 501.6901, L700.6800, L500.4050, L501.2450, L100.0100 #### [facility] [address] [place], [address] Potassium [Moles/Vol] 3.6 mmol/L Normal 3.5-5.1 [facility] Comment on above: Order Comment: Call MD with results STAT Performed By: #### L 501.6901, L700.6800, L500.4050, L501.2450, L100.0100 #### [facility] [address] [place], [address] Sodium [Moles/Vol] 141 mmol/L Normal 136-145 [facility] Comment on above: Order Comment: Call MD with results STAT Performed By: #### L 501.6901, L700.6800, L500.4050, L501.2450, L100.0100 #### [facility] [address] [place], [address] Urea nitrogen [Mass/Vol] 10 mg/dL Normal 7-18 [facility] Comment on above: Order Comment: Call MD with results STAT Performed By: #### L 501.6901, L700.6800, L500.4050, L501.2450, L100.0100 #### [facility] [address] [place], [address] BUN/CRE 16.1 RATIO Normal 10-20 [facility] Comment on above: Order Comment: CRITI DONI VALUE CALLED TO SHALONDA TRUJILLO 11/27/24 1434 Gaby Macdonald. RESULTS READ BACK BY SAME. CLEAN CATCH Performed By: #### L 400.0001 #### [facility] [address] [place], [address] CA,Total 9.0 mg/dL Normal 8.5-10.1 [facility] Comment on above: Order Comment: CRITI DONI VALUE CALLED TO SHALONDA SANDIA 11/27/24 1434 Gaby Macdonald. RESULTS READ BACK BY SAME. CLEAN CATCH Performed By: #### L 400.0001 #### [facility] [address] [place], [address] Chloride [Moles/Vol] 112 mmol/L High 98-107 [facility] Comment on above: Order Comment: [facility] Gaby Macdonald. RESULTS READ BACK BY SAME. CLEAN CATCH Performed By: #### L 400.0001 #### [facility] [address] [place], [address] CO2 [Moles/Vol] 10.0 mmol/L Low 21.0-32.0 [facility] Comment on above: Order Comment: CRITI DONI VALUE [facility]24 [facility] Gaby Macdonald. RESULTS READ BACK BY SAME. CLEAN CATCH Performed By: #### L 400.0001 #### [facility] [address] [place], [address] Creatinine [Mass/Vol] 0.93 mg/dL Normal 0.55-1.02 [facility] Comment on above: Order Comment: CRITI DONI VALUE CALLED TO [facility] 11/27/24 [facility] Gaby Macdonald. RESULTS READ BACK BY SAME. CLEAN CATCH Result Comment: The validity of the calculated GFR GFRAA in patients over 70 years has not been determined. Clinical correlation is essential. Performed By: #### L 400.0001 #### [facility] [address] [place], [address] ECRCL 75.97 ml/min Normal [facility] Comment on above: Order Comment: CRITI DONI VALUE CALLED TO SHALONDA TRUJILLO 11/27/24 1434 Gaby Macdonald. RESULTS READ BACK BY SAME. CLEAN CATCH Performed By: #### L 400.0001 #### [facility] [address] [place], [address] EST GFR - AA 94 mL/min Normal >60 [facility] Comment on above: Order Comment: CRITI DONI VALUE CALLED TO SHALONDA SANDIA 11/27/24 1434 Gaby Macdonald. RESULTS READ BACK BY SAME. CLEAN CATCH Result Comment: Afri can Russian GFR Calc Performed By: #### L 400.0001 #### [facility] [address] [place], [address] GAP 18 High 5-15 [facility] Comment on above: Order Comment: CRITI DONI VALUE CALLED TO SHALONDA SANDIA 11/27/24 [facility] Gaby Macdonald. RESULTS READ BACK BY SAME. CLEAN CATCH Performed By: #### L 400.0001 #### [facility] [address] [place], [address] GFR/1.73 sq M.predicted among non-blacks MDRD (S/P/Bld) [Vol rate/Area] 77 mL/min/{1.73_m2} Normal >60 [facility] Comment on above: Order Comment: CRITI DONI VALUE CALLED TO SHALONDA SANDIA 11/27/24 1434 Gaby Macdonald. RESULTS READ BACK BY SAME. CLEAN CATCH Result Comment: Non- GFR Calc Performed By: #### L 400.0001 #### [facility] [address] [place], [place], [address] Glucose [Mass/Vol] 290 mg/dL High 74-106 [facility] Comment on above: Order Comment: CRITI DONI VALUE CALLED TO SHALONDA SANDIA 11/27/24 1434 Gaby Macdonald. RESULTS READ BACK BY SAME. CLEAN CATCH Result Comment: Gluc ose result greater than or equal to 200 mg/dL suggests DIABETES MELLITUS per A.D.A. criteria. Performed By: #### L 400.0001 #### [facility] [address] [place], [address] Potassium [Moles/Vol] 4.3 mmol/L Normal 3.5-5.1 [facility] Comment on above: Order Comment: CRITI DONI VALUE CALLED TO SHALONDA TRUJILLO 11/27/24 1434 Gabyjai Macdonald. RESULTS READ BACK BY SAME. CLEAN CATCH Result Comment: Slig ht Hemolysis, Result may be falsely increased. Performed By: #### L 400.0001 #### [facility] [address] [place], [address] Sodium [Moles/Vol] 140 mmol/L Normal 136-145 [facility] Comment on above: Order Comment: CRITI DONI VALUE CALLED TO SHALONDA TRUJILLO 11/27/24 1434 Gaby Macdonald. RESULTS READ BACK BY SAME. CLEAN CATCH Performed By: #### L 400.0001 #### [facility] [address] [place], [address] Urea nitrogen [Mass/Vol] 15 mg/dL Normal 7-18 [facility] Comment on above: Order Comment: CRITI DONI VALUE CALLED TO SHALONDA TRUJILLO 11/27/24 1434 Gaby Macdonald. RESULTS READ BACK BY SAME. CLEAN CATCH Performed By: #### L [id number] #### [facility] [address] [place], [address] Bedside Glucoseon 05-13-2024 FINGERSTICK GLU 99 mg/dL Normal 74-106 [facility] Comment on above: Result Comment: FAY GEMENT OF PATIENT CARE PER NURSING PROTOCOL Performed By: #### L 501.6901, L700.6800, L500.4050, L501.2450, L100.0100 #### [facility] [address] [place], [address] FINGERSTICK GLU 154 mg/dL High 74-106 [facility] Comment on above: Result Comment: FAY GEMENT OF PATIENT CARE PER NURSING PROTOCOL Performed By: #### L 400.0001 #### [facility] [address], [address] FINGERSTICK GLU 111 mg/dL High 74-106 [facility] Comment on above: Result Comment: FAY GEMENT OF PATIENT CARE PER NURSING PROTOCOL Performed By: #### L 9000.0810 #### [facility] [address] [place], [address] FINGERSTICK GLU 134 mg/dL High 74-106 [facility] Comment on above: Result Comment: FAY GEMENT OF PATIENT CARE PER NURSING PROTOCOL Performed By: #### L 400.0001 #### [facility] [address] [place], [address] FINGERSTICK GLU 171 mg/dL High 74-106 [facility] Comment on above: Result Comment: FAY GEMENT OF PATIENT CARE PER NURSING PROTOCOL Performed By: #### L 400.0001 #### [facility] [address], [address] FINGERSTICK GLU 211 mg/dL High 74-106 [facility] Comment on above: Result Comment: FAY GEMENT OF PATIENT CARE PER NURSING PROTOCOL Performed By: #### L 501.080 #### [facility] [address], [address] FINGERSTICK GLU 179 mg/dL High 74-106 [facility] Comment on above: Result Comment: FAY GEMENT OF PATIENT CARE PER NURSING PROTOCOL Performed By: #### L 501.080 #### [facility] [address] [place], [address] FINGERSTICK GLU 185 mg/dL High 74-106 [facility] Comment on above: Result Comment: FAY GEMENT OF PATIENT CARE PER NURSING PROTOCOL Performed By: #### L 500.2500 #### [facility] [address] [place], [address] FINGERSTICK GLU 217 mg/dL High 74-106 [facility] Comment on above: Result Comment: FAY GEMENT OF PATIENT CARE PER NURSING PROTOCOL Performed By: #### L 501.080 #### [facility] [address] [place], [address] FINGERSTICK GLU 275 mg/dL High -106 [facility] Comment on above: Result Comment: FAY GEMENT OF PATIENT CARE PER NURSING PROTOCOL Performed By: #### L 501.6901, L700.6800, L500.4050, L501.2450, L100.0100 #### [facility] [address] [place], [address] FINGERSTICK GLU 190 mg/dL High [facility]106 [facility] Comment on above: Result Comment: FAY GEMENT OF PATIENT CARE PER NURSING PROTOCOL Performed By: #### L 501.6901, L700.6800, L500.4050, L501.2450, L100.0100 #### [facility] [address] [place], [address] FINGERSTICK GLU 231 mg/dL High [address] [place] [address] Comment on above: Result Comment: FAY GEMENT OF PATIENT CARE PER NURSING PROTOCOL Performed By: #### L 501.6901, L700.6800, L500.4050, L501.2450, L100.0100 #### [facility] [address] [place], [address] FINGERSTICK GLU 320 mg/dL High 74-106 [facility] Comment on above: Result Comment: FAY GEMENT OF PATIENT CARE PER NURSING PROTOCOL Performed By: #### L 501.6901, L700.6800, L500.4050, L501.2450, L100.0100 #### [facility] [address] [place], [address] Blood Gases by [facility] 10-24-2 024 Base excess Calc (Bld) [Moles/Vol] -14 mmol/L Low -2 to +2 [facility] Comment on above: Performed By: #### L 400.0001 #### [facility] [address] [place], [address] Blood Gas Type ART Normal [facility] Comment on above: Performed By: #### L 400.0001 #### [facility] [address] [place], [address] CO2 [Moles/Vol] 13 mmol/L Normal [facility] Comment on above: Performed By: #### L 400.0001 #### [facility] [address] [place], [address] FI02 21.0 Normal [facility] Comment on above: Performed By: #### L 400.0001 #### [facility] [address] [place], [address] HCO3 (Bld) [Moles/Vol] 12.3 mmol/L Low 22-26 [facility] Comment on above: Performed By: #### L 400.0001 #### [facility] [address] [place], [address] Mode Not entered [facility] Comment on above: Performed By: #### L 400.0001 #### [facility] [address] [place], [address] O2 Delivery Dev Not entered [facility] Comment on above: Performed By: #### L 400.0001 #### [facility] [address] [place], [address] pCO2 25.4 mmHg Low 35-45 [facility] Comment on above: Performed By: #### L 400.0001 #### [facility] [address] [place], [address] pH (Bld) 7.29 [pH] Low 7.35-7.45 [facility] Comment on above: Performed By: #### L 400.0001 #### [facility] [address] [place], [address] PO2 102 mmHG High 75-100 [facility] Comment on above: Performed By: #### L 400.0001 #### [facility] [address] [place], [address] SITE L Brach Normal [facility] Comment on above: Performed By: #### L 400.0001 #### [facility] [address] [place], [address] SO2 97 Normal 95-99 [facility] Comment on above: Performed By: #### L 400.0001 #### [facility] [address] [place], [address] CBC W/Diff, Automatedon 10-2 Absolute Lymph 1.03 X10 3/uL Normal 0.83-4.51 [facility] Comment on above: Performed By: #### L 501.6901, L700.6800, L500.4050, L501.2450, L100.0100 #### [facility] [address] [place], [address] Absolute Neut 12.9 X10 3/uL High 2.0-7.7 [facility] Comment on above: Performed By: #### L 501.6901, L700.6800, L500.4050, L501.2450, L100.0100 #### [facility] [address] [place], [address] Basophils/100 WBC (Bld) 0.5 % Normal 0-1 [facility] Comment on above: Performed By: #### L 501.6901, L700.6800, L500.4050, L501.2450, L100.0100 #### [facility] [address] [place], [address] Eosinophils/100 WBC (Bld) 0.1 % Normal 0-5 [facility] Comment on above: Performed By: #### L 501.6901, L700.6800, L500.4050, L501.2450, L100.0100 #### [facility] [address] [place], [address] Erythrocyte distribution width (RBC) [Ratio] 13.4 % Normal 11.6-14.6 [facility] Comment on above: Performed By: #### L 501.6901, L700.6800, L500.4050, L501.2450, L100.0100 #### [facility] [address] [place], [address] Hematocrit (Bld) [Volume fraction] 44.6 % Normal 37-47 [facility] Comment on above: Performed By: #### L 501.6901, L700.6800, L500.4050, L501.2450, L100.0100 #### [facility] [address] [place], [address] Hemoglobin (Bld) [Mass/Vol] 14.3 g/dL Normal 12.0-15.0 [facility] Comment on above: Performed By: #### L 501.6901, L700.6800, L500.4050, L501.2450, L100.0100 #### [facility] [address] [place], [address] IG% 0.600 Normal 0.0-0.9 [facility] Comment on above: Result Comment: IG% - Immature Granulocytes (promyelocytes, myelocytes and metamyelocytes) > 1% indicates that a LEFT SHIFT is Present. Performed By: #### L 501.6901, L700.6800, L500.4050, L501.2450, L100.0100 #### [facility] [address] [place], [address] Lymphocytes/100 WBC (Bld) 7.1 % Low 19-41 [facility] Comment on above: Performed By: #### L 501.6901, L700.6800, L500.4050, L501.2450, L100.0100 #### [facility] [address] [place], [address] MCH (RBC) [Entitic mass] 28.3 pg Normal 27.0-32.0 [facility] Comment on above: Performed By: #### L 501.6901, L700.6800, L500.4050, L501.2450, L100.0100 #### [facility] [address] [place], [address] MCHC (RBC) [Mass/Vol] 32.1 g/dL Normal 32-36 [facility] Comment on above: Performed By: #### L 501.6901, L700.6800, L500.4050, L501.2450, L100.0100 #### [facility] [address] [place], [address] MCV (RBC) [Entitic vol] 88.1 fL Normal 81-99 [facility] Comment on above: Performed By: #### L 501.6901, L700.6800, L500.4050, L501.2450, L100.0100 #### [facility] [address] [place], [address] Monocytes/100 WBC (Bld) 2.4 % Normal 0-10 [facility] Comment on above: Performed By: #### L 501.6901, L700.6800, L500.4050, L501.2450, L100.0100 #### [facility] [address] [place], [address] Neutrophils/100 WBC (Bld) 89.3 % High 47-70 [facility] Comment on above: Performed By: #### L 501.6901, L700.6800, L500.4050, L501.2450, L100.0100 #### [facility] [address] [place], [address] Nucleated RBC (Bld) [#/Vol] 0 10*3/uL Normal 0-5 [facility] Comment on above: Performed By: #### L 501.6901, L700.6800, L500.4050, L501.2450, L100.0100 #### [facility] [address] [place], [address] Platelet mean volume (Bld) [Entitic vol] 9.1 fL Normal 6.2-12.0 [facility] Comment on above: Performed By: #### L 501.6901, L700.6800, L500.4050, L501.2450, L100.0100 #### [facility] [address] [place], [address] Platelets (Bld) [#/Vol] 388 10*3/uL Normal 150-450 [facility] Comment on above: Performed By: #### L 501.6901, L700.6800, L500.4050, L501.2450, L100.0100 #### [facility] [address] [place], [address] RBC (Bld) [#/Vol] 5.06 10*6/uL Normal 4.2-5.4 [facility] Comment on above: Performed By: #### L 501.6901, L700.6800, L500.4050, L501.2450, L100.0100 #### [facility] [address] [place], [address] RDW SD 43.1 fl Normal 35.1-43.9 [facility] Comment on above: Performed By: #### L 501.6901, L700.6800, L500.4050, L501.2450, L100.0100 #### [facility] [address] [place], [address] WBC (Bld) [#/Vol] 14.4 10*3/uL High 4.4-11.0 [facility] Comment on above: Performed By: #### L 501.6901, L700.6800, L500.4050, L501.2450, L100.0100 #### [facility] [address] [place], [address] Comprehensive Metabolic Prof ilon 05-13-2024 Albumin [Mass/Vol] 4.6 g/dL Normal 3.2-5.0 [facility] Comment on above: Performed By: #### L 501.6901, L700.6800, L500.4050, L501.2450, L100.0100 #### [facility] [address] [place], [address] Albumin/Globulin [Mass ratio] 1.2 {ratio} Normal 0.9-2.4 [facility] Comment on above: Performed By: #### L 501.6901, L700.6800, L500.4050, L501.2450, L100.0100 #### [facility] [address] [place], [address] ALK P 108 U/L Normal 45-117 [facility] Comment on above: Performed By: #### L 501.6901, L700.6800, L500.4050, L501.2450, L100.0100 #### [facility] [address] [place], [address] ALT [Catalytic activity/Vol] 22 U/L Normal 13-56 [facility] Comment on above: Performed By: #### L 501.6901, L700.6800, L500.4050, L501.2450, L100.0100 #### [facility] [address] [place], [address] AST [Catalytic activity/Vol] 14 U/L Low 15-37 [facility] Comment on above: Performed By: #### L 501.6901, L700.6800, L500.4050, L501.2450, L100.0100 #### [facility] [address] [place], [address] Bilirubin [Mass/Vol] 1.30 mg/dL High 0.20-1.00 [facility] Comment on above: Result Comment: For patients on eltrombopag therapy, use of Dimension [place] TBIL is not recommended. Performed By: #### L 501.6901, L700.6800, L500.4050, L501.2450, L100.0100 #### [facility] [address] [place], [address] BUN/CRE 16.2 RATIO Normal 10-20 [facility] Comment on above: Performed By: #### L 501.6901, L700.6800, L500.4050, L501.2450, L100.0100 #### [facility] [address] [place], [address] CA,Total 9.7 mg/dL Normal 8.5-10.1 [facility] Comment on above: Performed By: #### L 501.6901, L700.6800, L500.4050, L501.2450, L100.0100 #### [facility] [address] [place], [address] Chloride [Moles/Vol] 104 mmol/L Normal 98-107 [facility] Comment on above: Performed By: #### L 501.6901, L700.6800, L500.4050, L501.2450, L100.0100 #### [facility] [address] [place], [address] CO2 [Moles/Vol] 13.0 mmol/L Low 21.0-32.0 [facility] Comment on above: Performed By: #### L 501.6901, L700.6800, L500.4050, L501.2450, L100.0100 #### [facility] [address] [place], [address] Creatinine [Mass/Vol] 0.98 mg/dL Normal 0.55-1.02 [facility] Comment on above: Result Comment: The validity of the calculated GFR GFRAA in patients over 70 years has not been determined. Clinical correlation is essential. Performed By: #### L 501.6901, L700.6800, L500.4050, L501.2450, L100.0100 #### [facility] [address] [place], [address] ECRCL 74.89 ml/min Normal [facility] Comment on above: Performed By: #### L 501.6901, L700.6800, L500.4050, L501.2450, L100.0100 #### [facility] [address] [place], [address] EST GFR - AA 88 mL/min Normal >60 [facility] Comment on above: Result Comment: Afri can Russian GFR Calc Performed By: #### L 501.6901, L700.6800, L500.4050, L501.2450, L100.0100 #### [facility] [address] [place], [address] GAP 20 High 5-15 [facility] Comment on above: Performed By: #### L 501.6901, L700.6800, L500.4050, L501.2450, L100.0100 #### [facility] [address] [place], [address] GFR/1.73 sq M.predicted among non-blacks MDRD (S/P/Bld) [Vol rate/Area] 72 mL/min/{1.73_m2} Normal >60 [facility] Comment on above: Result Comment: Non- GFR Calc Performed By: #### L 501.6901, L700.6800, L500.4050, L501.2450, L100.0100 #### [facility] [address] [place], [address] Globulin (S) [Mass/Vol] 4.0 g/dL Normal 2.2-4.2 [facility] Comment on above: Performed By: #### L 501.6901, L700.6800, L500.4050, L501.2450, L100.0100 #### [facility] [address] [place], [address] Glucose [Mass/Vol] 441 mg/dL High 74-106 [facility] Comment on above: Result Comment: Gluc ose result greater than or equal to 200 mg/dL suggests DIABETES MELLITUS per A.D.A. criteria. Performed By: #### L 501.6901, L700.6800, L500.4050, L501.2450, L100.0100 #### [facility] [address] [place], [address] Potassium [Moles/Vol] 4.1 mmol/L Normal 3.5-5.1 [facility] Comment on above: Performed By: #### L 501.6901, L700.6800, L500.4050, L501.2450, L100.0100 #### [facility] [address] [place], [address] Sodium [Moles/Vol] 137 mmol/L Normal 136-145 [facility] Comment on above: Performed By: #### L 501.6901, L700.6800, L500.4050, L501.2450, L100.0100 #### [facility] [address] [place], [address] T PROT 8.6 g/dL High 6.4-8.2 [facility] Comment on above: Performed By: #### L 501.6901, L700.6800, L500.4050, L501.2450, L100.0100 #### [facility] [address] [place], [address] Urea nitrogen [Mass/Vol] 16 mg/dL Normal 7-18 [facility] Comment on above: Performed By: #### L 501.6901, L700.6800, L500.4050, L501.2450, L100.0100 #### [facility] [address] [place], [address] Emergency Department Summary on 05-13-2024 Emergency Department Summary [facility] Medical Records Department [address] [place] [address] Emergency Department Summary 05/13/24 MR#: [id number] Acct: [id number] Name: KALIE EDSIR Rep #: [id number] : 2000 24 From: Yony Simmons MD PCP: Minnie Hodge Status:ADM IN Location: ICU [id number] HPI HPI - GI History of Present [...] the co (more content not included)... Normal [facility]&P Exam - Hospitalist [facility] Medical Records Department [address] [place] [address] H P Exam - Hospitalist 05/13/24 0254 MR#: [id number] Acct: [id number] Name: KALIE DESIR Rep #: [id number] : 2000 24 From: Jackeline Rowe DO PCP: Minnie Hodge Status:ADM IN Location: ICU [id number] HPI - General General Date of Admission: [...] a negative urine test who re-presents to [facility] ER complaining of continued nausea and [...] is expected to extend beyond 2 midnights. [facility] Medical History (Updated 05/13/24 @ 03:40 by [...] Grandmother Diab (more content not included)... Normal [facility] Hemoglobin A1con 05-13-2024 HbA1c (Bld) [Mass fraction] 11.0 % High 3.8-5.6 [facility] Comment on above: Result Comment: Norm al < 5.7 % Prediabetic 5.7 - 6.4 % Diabetic >or= 6.5 % Please note range changes. Performed By: #### L 400.0001 #### [facility] [address] [place], [address] Lipaseon 05-13-2024 Lipase [Catalytic activity/Vol] 12 U/L Low 13-75 [facility] Comment on above: Result Comment: Ilda nickerson note: LIPASE revised reference range effective 22. New Lipase methodology. Expected to produce lower values than the previous assay method. NEW Reference Range: 13 - 75 U/L Performed By: #### L 501.6901, L700.6800, L500.4050, L501.2450, L100.0100 #### [facility] [address] [place], [address] Magnesiumon 05-13-2024 Magnesium [Mass/Vol] 2.0 mg/dL Normal 1.6-2.6 [facility] Comment on above: Performed By: #### L 501.6901, L700.6800, L500.4050, L501.2450, L100.0100 #### [facility] [address] [place], [address] Thyroid Stim Hormone (TSH)on 05-13-2024 TSH 1.320 uIU/mL Normal 0.358-3.740 [facility] Comment on above: Order Comment: CRITI DONI VALUE CALLED TO SHALONDA TRUJILLO 11/27/24 Cristhian Macdonald. RESULTS READ BACK BY SAME. CLEAN CATCH Performed By: #### L 400.0001 #### [facility] [address] [place], [address] Urinalysis, Completeon 10-24 -2024 EPI,SQUAMOUS 0-5 SEEN Normal 5-10 [facility] Comment on above: Order Comment: COLLE CTOR TO SPECIFY Performed By: #### L 501.6901, L700.6800, L500.4050, L501.2450, L100.0100 #### [facility] [address] [place], [address] RBC 0-5 SEEN Normal 0-5 [facility] Comment on above: Order Comment: COLLE CTOR TO SPECIFY Performed By: #### L 501.6901, L700.6800, L500.4050, L501.2450, L100.0100 #### [facility] [address] [place], [address] BACTERIA 0 SEEN Normal None Seen [facility] Comment on above: Order Comment: LEXI CTOR TO SPECIFY Performed By: #### L 501.6901, L700.6800, L500.4050, L501.2450, L100.0100 #### [facility] [address] [place], [address] Mucus Ql (Urine sed) 0 SEEN Normal [facility] Comment on above: Order Comment: LEXI CTOR TO SPECIFY Performed By: #### L 501.6901, L700.6800, L500.4050, L501.2450, L100.0100 #### [facility] [address] [place], [address] WBC 0 SEEN Normal 0-5 [facility] Comment on above: Order Comment: COLLE CTOR TO SPECIFY Performed By: #### L 501.6901, L700.6800, L500.4050, L501.2450, L100.0100 #### [facility] [address] [place], [address] Urine Drug Screen (VISTA)on 05-13-2024 AMPHETAMINES Negative Normal <1000 ng/mL [facility] Comment on above: Performed By: #### L 400.0001 #### [facility] [address] [place], [address] BARBITIURATES Negative Normal < 200 ng/mL [facility] Comment on above: Performed By: #### L 400.0001 #### [facility] [address] [place], [address] BENZODIAZIPINE Negative Normal < 200 ng/mL [facility] Comment on above: Performed By: #### L 400.0001 #### [facility] [address] [place], [address] COCAINE Negative Normal < 300 ng/mL [facility] Comment on above: Performed By: #### L 400.0001 #### [facility] [address] [place], [address] ECSTACY Negative Normal < 500 ng/mL [facility] Comment on above: Performed By: #### L 400.0001 #### [facility] [address] [place], [address] METHADONE Negative Normal < 300 ng/mL [facility] Comment on above: Performed By: #### L 400.0001 #### [facility] [address] [place], [address] OPIATES Negative Normal < 300 ng/mL [facility] Comment on above: Performed By: #### L 400.0001 #### [facility] [address] [place], [address] PCP Negative Normal < 25 ng/mL [facility] Comment on above: Performed By: #### L 400.0001 #### [facility] [address] [place], [address] THC Positive Abnormal < 50 ng/mL [facility] Comment on above: Performed By: #### L 400.0001 #### [facility] [address] [place], [address] VISTA UDS PH 6 [facility] Comment on above: Performed By: #### L 400.0001 #### [facility] [address] [place], [address] Venous Blood Gason 4 Blood Gas Type LUIS [facility] Comment on above: Performed By: #### L 400.0001 #### [facility] [address] [place], [address] CO2 [Moles/Vol] 10 mmol/L Low 23-33 [facility] Comment on above: Performed By: #### L 400.0001 #### [facility] [address] [place], [address] HCO3 (Bld) [Moles/Vol] 9 mmol/L Low 22-26 [facility] Comment on above: Performed By: #### L 400.0001 #### [facility] [address] [place], [address] O2 Delivery Dev Room Air [facility] Comment on above: Performed By: #### L 400.0001 #### [facility] [address] [place], [address] Read Back By Yes [facility] Comment on above: Performed By: #### L 400.0001 #### [facility] [address] [place], [address] Results To Reodica [facility] Comment on above: Performed By: #### L 400.0001 #### [facility] [address] [place], [address] SITE Not entered [facility] Comment on above: Performed By: #### L 400.0001 #### [facility] [address] [place], [address] Time Given 02:41:34 [facility] Comment on above: Performed By: #### L 400.0001 #### [facility] [address] [place], [address] VBG BE -22 mmol/L Low -1.0-3.5 [facility] Comment on above: Performed By: #### L 400.0001 #### [facility] [address] [place], [address] VBG pCO2 32.0 mmHg Low 41-51 [facility] Comment on above: Performed By: #### L 400.0001 #### [facility] [address] [place], [address] VBG pH 7.05 Invalid Interpretation Code 7.32-7.42 [facility] Comment on above: Performed By: #### L 400.0001 #### [facility] [address] [place], [address] VBG PO2 61 mmHg High 25-40 [facility] Comment on above: Performed By: #### L 400.0001 #### [facility] [address] [place], [address] VBG SO2 80 High 50-70 [facility] Comment on above: Performed By: #### L 400.0001 #### [facility] [address] [place], [address] Abdomen/Pelvis W IV Cont ONL Yon 05-12-2024 Abdomen/Pelvis W IV Cont ONLY [facility] [address] [place] [address] Abdomen/Pelvis W IV Cont ONLY MR#: [id number] Acct: [id number] Name: KALIE DESIR Rep #: [id number] : 2000 F 24 From: Akil vegas MD PCP: Minnie Hodge Status: REG ER Study: Abdomen/Pelvis W IV Cont ONLY Date of Exam: Exam# [id number] Ordering Dr: Rony Delgadillo DO [id number] STUDY: CT ABDOMEN AND PELVIS WITH CONTRAST [...] CC: Minnie Hodge; Dr. 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, [address] CBC W/Diff, Automatedon 10-2 Absolute Lymph 0.98 X10 3/uL Normal 0.83-4.51 [facility] Comment on above: Performed By: #### L 501.080 #### [facility] [address] [place], [address] Absolute Neut 8.0 X10 3/uL High 2.0-7.7 [facility] Comment on above: Performed By: #### L 501.080 #### [facility] [address] [place], [address] Basophils/100 WBC (Bld) 0.5 % Normal 0-1 [facility] Comment on above: Performed By: #### L 501.080 #### [facility] [place], [address] Eosinophils/100 WBC (Bld) 0.6 % Normal 0-5 [facility] Comment on above: Performed By: #### L 501.080 #### [facility] [address] [place], [address] Erythrocyte distribution width (RBC) [Ratio] 13.2 % Normal 11.6-14.6 [facility] Comment on above: Performed By: #### L 501.080 #### [facility] [address] [place], [address] Hematocrit (Bld) [Volume fraction] 43.9 % Normal 37-47 [facility] Comment on above: Performed By: #### L 501.080 #### [facility] [address] [place], [address] Hemoglobin (Bld) [Mass/Vol] 14.6 g/dL Normal 12.0-15.0 [facility] Comment on above: Performed By: #### L 501.080 #### [facility] [address] [place], [address] IG% 0.200 Normal 0.0-0.9 [facility] Comment on above: Result Comment: IG% - Immature Granulocytes (promyelocytes, myelocytes and metamyelocytes) > 1% indicates that a LEFT SHIFT is Present. Performed By: #### L 501.080 #### [facility] [address] [place], [address] Lymphocytes/100 WBC (Bld) 10.3 % Low 19-41 [facility] Comment on above: Performed By: #### L 501.080 #### [facility] [address] [place], [address] MCH (RBC) [Entitic mass] 27.8 pg Normal 27.0-32.0 [facility] Comment on above: Performed By: #### L 501.080 #### [facility] [address] [place], [address] MCHC (RBC) [Mass/Vol] 33.3 g/dL Normal 32-36 [facility] Comment on above: Performed By: #### L 501.080 #### [facility] [address] [place], [address] MCV (RBC) [Entitic vol] 83.6 fL Normal 81-99 [facility] Comment on above: Performed By: #### L 501.080 #### [facility] [address] [place], [address] Monocytes/100 WBC (Bld) 3.6 % Normal 0-10 [facility] Comment on above: Performed By: #### L 501.080 #### [facility] [address] [place], [address] Neutrophils/100 WBC (Bld) 84.8 % High 47-70 [facility] Comment on above: Performed By: #### L 501.080 #### [facility] [address] [place], [address] Nucleated RBC (Bld) [#/Vol] 0 10*3/uL Normal 0-5 [facility] Comment on above: Performed By: #### L 501.080 #### [facility] [address] [place], [address] Platelet mean volume (Bld) [Entitic vol] 9.0 fL Normal 6.2-12.0 [facility] Comment on above: Performed By: #### L 501.080 #### [facility] [address] [place], [address] Platelets (Bld) [#/Vol] 337 10*3/uL Normal 150-450 [facility] Comment on above: Performed By: #### L 501.080 #### [facility] [address] [place], [address] RBC (Bld) [#/Vol] 5.25 10*6/uL Normal 4.2-5.4 [facility] Comment on above: Performed By: #### L 501.080 #### [facility] [address] [place], [address] RDW SD 40.5 fl Normal 35.1-43.9 [facility] Comment on above: Performed By: #### L 501.080 #### [facility] [address] [place], [address] WBC (Bld) [#/Vol] 9.5 10*3/uL Normal 4.4-11.0 [facility] Comment on above: Performed By: #### L 501.080 #### [facility] [address] [place], [address] Comprehensive Metabolic Prof ilon 05-12-2024 Albumin [Mass/Vol] 3.9 g/dL Normal 3.2-5.0 [facility] Comment on above: Performed By: #### L 501.080 #### [facility] [address] [place], [address] Albumin/Globulin [Mass ratio] 1.0 {ratio} Normal 0.9-2.4 [facility] Comment on above: Performed By: #### L 501.080 #### [facility] [address] [place], [address] ALK P 97 U/L Normal 45-117 [facility] Comment on above: Performed By: #### L 501.080 #### [facility] [address] [place], [address] ALT [Catalytic activity/Vol] 19 U/L Normal 13-56 [facility] Comment on above: Performed By: #### L 501.080 #### [facility] [address] [place], [address] AST [Catalytic activity/Vol] 16 U/L Normal 15-37 [facility] Comment on above: Performed By: #### L 501.080 #### [facility] [address] [place], [address] Bilirubin [Mass/Vol] 1.00 mg/dL Normal 0.20-1.00 [facility] Comment on above: Result Comment: For patients on eltrombopag therapy, use of Dimension [place] TBIL is not recommended. Performed By: #### L 501.080 #### [facility] [address] [place], [address] BUN/CRE 23.6 RATIO High 10-20 [facility] Comment on above: Performed By: #### L 501.080 #### [facility] [address] [place], [address] CA,Total 9.4 mg/dL Normal 8.5-10.1 [facility] Comment on above: Performed By: #### L 501.080 #### [facility] [address] [place], [address] Chloride [Moles/Vol] 108 mmol/L High 98-107 [facility] Comment on above: Performed By: #### L 501.080 #### [facility] [address] [place], [address] CO2 [Moles/Vol] 21.0 mmol/L Normal 21.0-32.0 [facility] Comment on above: Performed By: #### L 501.080 #### [facility] [address] [place], [address] Creatinine [Mass/Vol] 0.76 mg/dL Normal 0.55-1.02 [facility] Comment on above: Result Comment: The validity of the calculated GFR GFRAA in patients over 70 years has not been determined. Clinical correlation is essential. Performed By: #### L 501.080 #### [facility] [address] [place], [address] ECRCL 93.87 ml/min Normal [facility] Comment on above: Performed By: #### L 501.080 #### [facility] [address] [place], [address] EST GFR - AA 118 mL/min Normal >60 [facility] Comment on above: Result Comment: Afri can Russian GFR Calc Performed By: #### L 501.080 #### [facility] [address] [place], [address] GAP 9 Normal 5-15 [facility] Comment on above: Performed By: #### L 501.080 #### [facility] [address] [place], [address] GFR/1.73 sq M.predicted among non-blacks MDRD (S/P/Bld) [Vol rate/Area] 97 mL/min/{1.73_m2} Normal >60 [facility] Comment on above: Result Comment: Non- GFR Calc Performed By: #### L 501.080 #### [facility] [address] [place], [address] Globulin (S) [Mass/Vol] 3.8 g/dL Normal 2.2-4.2 [facility] Comment on above: Performed By: #### L 501.080 #### [facility] [address] [place], [address] Glucose [Mass/Vol] 213 mg/dL High 74-106 [facility] Comment on above: Result Comment: Gluc ose result greater than or equal to 200 mg/dL suggests DIABETES MELLITUS per A.D.A. criteria. Performed By: #### L 501.080 #### [facility] [address] [place], [address] Potassium [Moles/Vol] 3.7 mmol/L Normal 3.5-5.1 [facility] Comment on above: Performed By: #### L 501.080 #### [facility] [address] [place], [address] Sodium [Moles/Vol] 138 mmol/L Normal 136-145 [facility] Comment on above: Performed By: #### L 501.080 #### [facility] [address] [place], [address] T PROT 7.7 g/dL Normal 6.4-8.2 [facility] Comment on above: Performed By: #### L 501.080 #### [facility] [address] [place], [address] Urea nitrogen [Mass/Vol] 18 mg/dL Normal 7-18 [facility] Comment on above: Performed By: #### L 501.080 #### [facility] [address] [place], [address] Emergency Department Summary on 05-12-2024 Emergency Department Summary [facility] Medical Records Department [address] [place] [address] Emergency Department Summary 05/12/24 MR#: [id number] Acct: [id number] Name: KALIE DESIR Rep #: [id number] : 2000 24 From: Rony Delgadillo DO [...] 16 Blood (more content not included)... Normal [facility] Lipaseon 05-12-2024 Lipase [Catalytic activity/Vol] 16 U/L Normal 13-75 [facility] Comment on above: Result Comment: Ilda nickerson note: LIPASE revised reference range effective 22. New Lipase methodology. Expected to produce lower values than the previous assay method. NEW Reference Range: 13 - 75 U/L Performed By: #### L 501.080 #### [facility] [address] [place], [address] M100.678on 05-12-2024 M100.678 Pending SARS-CoV-2 (COVID 19) Negative INFLUENZA A Negative INFLUENZA B Negative RSV PCR Negative Normal [facility] Comment on above: Performed By: #### L 501.080 #### [facility] [address] [place], [address] ,Urineon 05-12-2024 Beta HCG ( test) Ql (U) Negative Normal [facility] Comment on above: Order Comment: CRITI DONI VALUE CALLED TO Tony RIVAS05/12/24 1349 Sharmaine H Nathan.RESULTS READ BACK BY @Known.CLEAN CATCH Result Comment: Very dilute urine specimens, as indicated by a low specific gravity, may not contain personal banking representative levels of hCG. If is still suspected, a first morning urine specimen should be collected 48 hours later and tested. Performed By: #### L 501.6901, L700.6800, L500.4050, L501.2450, L100.0100 #### [facility] [address] [place], [address] Urinalysis, Completeon 05-12 CAST,HYALINE 5-10 SEEN Normal 0-5 [facility] Comment on above: Order Comment: CRITI DONI VALUE CALLED TO [employer]05/12/24 1349 Tar[employer] Nathan.RESULTS READ BACK BY @Known.CLEAN CATCH Performed By: #### L 501.6901, L700.6800, L500.4050, L501.2450, L100.0100 #### [facility] [address] [place], [place], [address] BACTERIA RARE Normal None Seen [facility] Comment on above: Order Comment: CRITI DONI VALUE CALLED TO [employer]05/12/24 134REES46xler.RESULTS READ BACK BY @Known.CLEAN CATCH Performed By: #### L 501.6901, L700.6800, L500.4050, L501.2450, L100.0100 #### [facility] [address] [place], [place], [address] EPI,SQUAMOUS 5-10 SEEN Normal 5-10 [facility] Comment on above: Order Comment: CRITI DONI VALUE CALLED TO [employer]05/12/24 1349 Sharmaine H Nathan.RESULTS READ BACK BY @Known.CLEAN CATCH Performed By: #### L 501.6901, L700.6800, L500.4050, L501.2450, L100.0100 #### [facility] [address] [place], [address] Mucus Ql (Urine sed) 1+ /hpf Normal [facility] Comment on above: Order Comment: CRITI DONI VALUE CALLED TO A [facility]05/12/24 1349 Sharmaine Barth Nathan.RESULTS READ BACK BY @Known.CLEAN CATCH Performed By: #### L 501.6901, L700.6800, L500.4050, L501.2450, L100.0100 #### [facility] [address] [place], [place], [address] RBC 0-5 SEEN Normal 0-5 [facility] Comment on above: Order Comment: CRITI DONI VALUE CALLED TO A [facility]05/12/24 1349 Sharmaine Lightxler.RESULTS READ BACK BY @Known.CLEAN CATCH Performed By: #### L 501.6901, L700.6800, L500.4050, L501.2450, L100.0100 #### [facility] [address] [place], [place], [address] WBC 0-5 SEEN Normal 0-5 [facility] Comment on above: Order Comment: CRITI DONI VALUE CALLED TO A [facility]05/12/24 1349 Sharmaine Lightxler.RESULTS READ BACK BY @Known.CLEAN CATCH Performed By: #### L 501.6901, L700.6800, L500.4050, L501.2450, L100.0100 #### [facility] [address] [place], [place], [address] CNOVon 05-07-2024 CNOV Office Visit ([facility] ) KALIE DESIR ([id number]) 2000 F Date Time Provider Department 05/07/24 3:00 PM ARJUN KIM [facility] During your visit today, we recorded the [...] (3 mL) Inject 20 units daily Insulin [place], Disposable, (PEN NEEDLE) 32 gauge x 5/32 [...] mL) Inject 20 units daily - Insulin [place], Disposable, (PEN NEEDLE) 32 gauge x 5/32 [...] as directed. (more content not included)... [facility] KALIE DESIR ([id number]) 2000 F Date Time Provider Department 04/14/24 [...] mL) Inject 20 units daily - Insulin [place], Disposable, (PEN NEEDLE) 32 gauge x 5/32 [...] Encounter Status:Closed by JACKELINE SHUKLA on 04/14/24 [facility] [place] 04-14-2024 CNPN Telephone (ENWSTR) KALIE DESIR ([id number]) 2000 F Date Time Provider Department 04/14/24 VERONIKA DORADO ENWSTR During your visit today, we recorded the following information about you: Nadya Tong RN 04/14/2024 2:16 PM Signed Prior [facility] for Omnipod 5 G6 PODS (GEN 5). [place]: [id number] Nadya Tong RN April 14, 2024 2:12 PM Sherry Mcneill RN 04/14/2024 4:15 PM Signed Received call from [employer] in [place] and the patient's insurance has changed to [employer]. Asking for prior auth to be resubmitted. SARA Lewis Brittney, RN 04/15/2024 8:52 AM Signed Repeat prior authorization submitted to [employer] through [employer]. Clinical chart notes faxed electronically to [employer] at . [place]: [id number] Nadya Tong RN April 15, 2024 8:52 AM Nadya Tong RN 04/19/2024 8:48 AM Signed Received fax from [employer] for APPROVAL on Omnipod 5 G6 PODS. [...] mL) Inject 20 units daily - Insulin [place], Disposable, (PEN NEEDLE) 32 gauge x 5/32 [...] Encounter Status:Closed by NADYA TONG [facility] KALIE DESIR ([id number]) 2000 F Date Time Provider Department 04/14/24 JUAN CARLOS CANDELARIO [facility] During your visit today, we recorded the following information about you: Srini Gerber LPN 04/14/2024 8:44 AM Addendum Received Request for statement of physician form from BM. This was forwarded to pcp from [facility] for pcp to complete d/t pcp manages pt's diabetes and has only been seen once in [facility]. Please contact pt once form has been completed. IAN Ruiz Roxanne, MA 04/14/2024 8:51 AM Signed Upon review of the chart Dr. Cui signed this form 3 years ago. Patient just recently starting seeing [facility] in January. MAYI Reinoso Brittney, RN 04/14/2024 [...] mL) Inject 20 units daily - Insulin [place], Disposable, (PEN NEEDLE) 32 gauge x 5/32 [...] Status:Closed by JUAN CARLOS CANDELARIO on 04/14/24 [facility] (ENWSTR) KALIE DESIR ([id number]) 2000 F Date Time Provider Department 04/12/24 [...] Chasity. She had been seeing Endocrine at [facility]. Even though you may have only seen [...] by Veronika Dorado CNP and faxed to [facility] Attn: Special Case Unit at . Copy [...] mL) Inject 20 units daily - Insulin [place], Disposable, (PEN NEEDLE) 32 gauge x 5/32 [...] Encounter Status:Closed by NADYA TONG on 04/12/24 [facility] Adam 04-05-2024 PASTOR Telephone (ENWSTR) KALIE DESIR ([id number]) 2000 F Date Time Provider Department 04/05/24 [...] mouth as needed. - DEXCOM G6 SENSOR copoer as directed. - DEXCOM G6 TRANSMITTER cooper [...] Status:Closed by NADYA TONG on 04/05/24 Normal [facility] CNPNon 04-01-2024 CNPN Telephone (ENWSTR) KALIE DESIR ([id number]) 2000 F Date Time Provider Department 04/01/24 [...] mL) Inject 20 units daily - Insulin [place], Disposable, (PEN NEEDLE) 32 gauge x 5/32 [...] Status:Closed by KAYLEN SHAFFER on 04/19/24 Normal [facility] CNOVon 03-25-2024 CNOV Office Visit (WSTR ) THANGKALIE ([id number]) 2000 F Date Time Provider Department 03/25/24 2:00 PM ROSA ISELA GONZALEZ CINDYVALENTINO During your visit today, we recorded the following information about you: Temperature Pulse Respiration Blood pressure 99 degrees 105/minute 21/minute 118/82 Weight 67.9 kg Kailash GonzaleziniqueCHRISTOPHER.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 MANAGER 03/25/2024 3:10 PM Signed Subjective Patient was moving furniture 3 days ago and noticed her back started hurting on both sides and then a day later her right wrist was hurting. The history is provided by the patient. No language specialist was used. Back Pain Review of Systems [...] getting worse not better. Rosa Isela Gonzalez APRN.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 MANAGER Allergies As of Date: 03/25/2024 Noted Allergy [...] [R52] Order(s):XR WRIST INJURY 4V PA/LAT/OBL/SCAPH RIGHT [[id number]] Order #: [id number] FUTURE XR LUMBAR GENERAL 3V AP/LAT/L5-S1 [[id number]] Order #: [id number] FUTURE cyclobenzaprine (FLEXERIL) 10 mg tabletTake 1 [...] G6 S (more content not included)... Normal [facility] No Panel Informationon 03-25 IMPRESSION: 1. Negative right wrist. 2. Normal lumbar spine series. Truck Rental Clerk: MIKAELA Transcribe Date/Time: Mar 25 2024 2:54P Dictated by : JACKELINE WALKER MD This examination was interpreted and the report reviewed and electronically signed by: JACKELINE WALKER MD on Mar 25 2024 2:58PM [facility] DIVISION OF RADIOLOGY Radiology Study observation (narrative) [facility] No Panel InformationOrdered By: Ccf Provider on 03-25-2024 [facility] XR LUMBAR 3V AP/LAT/L5-S1on 03-25-2024 XR LUMBAR [...] right wrist. 2. Normal lumbar spine series. Truck Rental Clerk: PSCB Transcribe Date/Time: Mar 25 2024 2:54P Dictated by : JACKELINE WALKER MD This examination was interpreted and the report reviewed and electronically signed by: JACKELINE WALKER MD on Mar 25 2024 2:58PM EST [id number] N Normal [facility] XR Lumbar spine 3 Viewson * [...] fracture or dislocation. DIVISION OF RADIOLOGY Provider, [facility] - 03/25/2024 * * *Final Report* * [...] right wrist. 2. Normal lumbar spine series. Truck Rental Clerk: MIKAELA Transcribe Date/Time: Mar 25 2024 2:54P Dictated by : JACKELINE WALKER MD This examination was interpreted and the report reviewed and electronically signed by: JACKELINE WALKER MD on Mar 25 2024 2:58PM EST [facility] XR WRIST 4V PA/LAT/OBL/SCAPH RTon 03-25-2024 XR [...] right wrist. 2. Normal lumbar spine series. Truck Rental Clerk: MIKAELA Transcribe Date/Time: Mar 25 2024 2:54P Dictated by : JACKELINE WALKER MD This examination was interpreted and the report reviewed and electronically signed by: JACKELINE WALKER MD on Mar 25 2024 2:58PM EST [id number] N Normal [facility] XR Wrist - right 4 Viewson [...] fracture or dislocation. DIVISION OF RADIOLOGY [facility]/25/[facility]24 * * *Final Report* * [...] right wrist. 2. Normal lumbar spine series. Truck Rental Clerk: MIKAELA Transcribe Date/Time: Mar 25 2024 2:54P Dictated by : JACKELINE WALKER MD This examination was interpreted and the report reviewed and electronically signed by: JACKELINE WALKER MD on Mar 25 2024 2:58PM [facility] CNOVon 03-10-2024 CNOV Office Visit (OBGYWM ) KALIE DESIR ([id number]) 2000 F Date Time Provider Department 03/10/24 [...] LMP 07/21/2023 test: negative Nexplanon lot #: [id number] Exp date: 10/2025 UNIVERSAL PROTOCOL / SAFETY [...] to prevent . Referring Provider: EVELYN CARR [[id number]] Allergies As of Date: 03/10/2024 Noted Allergy [...] 1 EachRfl: 0 UA DIP,URINE HCG (POC) [[id number]] Order #: [id number]. #:[id number] Prescriptions as of 03/10/2024 - etonogestrel (NEXPLANON) [...] - Alcohol (more content not included)... Normal [facility] UA DIP,URINE HCG (POC)on Beta HCG ( test) Ql (U) Negative Negative [facility] Comment on above: Location:[facility] [address] [facility], [place], [address] Utility Accounts Director (POCT) Internal QC OK [facility] Location:[facility], [facility] [place], [place], [id number] [place] [address] POINT OF CARE [facility] BACTERIAL VAGINOSIS NAATon 0 03-01-2024 Lactobacillus crispatus+gasseri+chani senii + Gardnerella vaginalis + Atopobium vaginae rRNA JEANNETTE+probe Ql (Vag fld) Negative Normal Negative for bacterial vaginosis [facility] Comment on above: Order Comment: Speci men Type: SWABOrdering Facility: [facility] Address: [address] [place] [address] Performed By: #### 3 6902-5, BVAMP ####[facility] LABCLIA [id number] [place] [address] [place] C. trachomatis+N. gonorrhoea e DNA JEANNETTE+probe Ql (Unsp spec)on 03-01-2024 C. trachomatis rRNA JEANNETTE+probe Ql (Unsp spec) Negative Normal Negative for Chlamydia trachomatis by amplificaton [facility] Comment on above: Order Comment: Speci men Type: SWABOrdering Facility: [facility] Address: [address] [place] [address] Performed By: #### 3 6902-5, BVAMP ####[facility] LABCLIA [id number] [place] [address] [place] N. gonorrhoeae rRNA JEANNETTE+probe Ql (Unsp spec) Negative Normal Negative for Neisseria gonorrhoeae by amplification [facility] Comment on above: Order Comment: Speci men Type: SWABOrdering Facility: [facility] Address: [address] [place] [address] Performed By: #### 3 6902-5, BVAMP ####[facility] LABCLIA [id number] [place] [address] [place] MICHELLE/TRICHOMONAS NAATon 0 03-01-2024 C. glabrata RNA JEANNETTE+probe Ql (Vag fld) Negative Normal Negative for Michelle glabrata [facility] Comment on above: Order Comment: Speci men Type: SWABOrdering Facility: [facility] Address: [address] [place] [address] Performed By: #### C VTV ####[facility] LABCLIA [id number] [place] [address] [place] Michelle sp DNA JEANNETTE+probe Ql (Vag fld) Negative Normal Negative for Michelle species [facility] Comment on above: Order Comment: Speci men Type: SWABOrdering Facility: [facility] Address: [address] [place] [address] Performed By: #### C VTV ####[facility] LABCLIA [id number] [place] [address] [place] T. vaginalis DNA JEANNETTE+probe Ql (Unsp spec) Negative Normal Negative for Trichomonas vaginalis by amplification [facility] Comment on above: Order Comment: Speci men Type: SWABOrdering Facility: [facility] Address: [address] [place] [address] Performed By: #### C VTV ####[facility] LABCLIA [id number] [place] [address] [place] CNCOon 03-01-2024 CNCO Letter Text Normal [facility] CNOVon 03-01-2024 CNOV Office Visit (OBGYWM ) KALIE DESIR ([id number]) 2000 F Date Time Provider Department 03/01/24 11:10 AM EVELYN CARR OBGYWM During your visit today, we recorded the following information about you: Blood pressure Weight Height 120/72 69.4 kg 1.49 m Evelyn Carr MD 03/01/2024 11:46 AM Signed Transportation Lead offered: Patient accepts, visit chaperoned by nurse. [...] ~ 11 Ciarra Discount Total Savings: $ [facility] extends a ciarra discount to all qualifying patients. This reduces your estimated cost and estimated responsibility. -7 days duration. Contraception: Nexplanon HPV vaccine: Yes Last Pap: this is her first HPV: negative History of abnormal pap: No Last mammogram: never Sexually active: Yes Last sexual contact: 1 mo ago. 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 LMP: 07/21/2023 (Approximate), Implant Age at Menarche: Age at First : Age at Menopause: Roller Machine Operator History Comments: Sexual Activity: Yes; Female, Male [...] external genitalia normal, normal Bartholin's glands, urethra, Lewellen's glands, no vulvar lesions, no cervical lesions, [...] Evelyn Carr MD Referring Provider: CHASITY HODGE [[id number]] Allergies As of Date: 03/01/2024 Noted Allergy [...] [Z30.46] Order(s):CONSULT TO GYNECOLOGY [9013] Order #: [id number]: 1 PAP TEST [VEC4586] Order #: [id number] BACTERIAL VAGINOSIS NAAT [SQBVAMP] Order #: [id number] (more content not included)... Normal [facility] PAP TESTon 03-01-2024 ADEQUACY Satisfactory for interpretation. Normal [facility] Comment on above: Order Comment: Speci men Type: FLUID SPECIMENOrdering Facility: [facility] Address: [address] [place] [address] Performed By: #### L [id number] ####[facility] LABCLIA [id number] [place] [address] [place] CASE REPORT Normal [facility] Comment on above: Order Comment: Speci men Type: FLUID SPECIMENOrdering Facility: [facility] Address: [address] [place] [address] Result Comment: Gyne cologic Cytology Report Case: [id number] Authorizing Provider: Evelyn Carr MD Collected: 03/01/2024 12:19 PM Ordering Location: OB/Gynecology Received: 03/01/2024 04:14 PM First Screen: Zhorova, Nicole, CT, ASCP Specimen: Pap Test, ThinPrep, Cervix Performed By: #### L [id number] ####[facility] LABCLIA [id number] [address] [address] [place] CLINICAL HISTORY, CYTOLOGY, MOTION AND TIME STUDY TEACHER Routine Exam Normal [facility] Comment on above: Order Comment: Speci men Type: FLUID SPECIMENOrdering Facility: [facility] Address: [address] [place], [place] [address] Result Comment: Horm onal Contraceptive, No Menses Performed By: #### L [id number] ####[facility] LABCLIA [id number] [place] [id number] [place] FINAL PERFORMING LAB Normal [facility] Comment on above: Order Comment: Speci men Type: FLUID SPECIMENOrdering Facility: [facility] Address: [address] [place] [address] Result Comment: Tech nical component, marriage performer screening performed at [facility], [address] [place] [address] CLIA# [id number] Diagnostic interpretation performed at [facility], [address] [place], [place] [address] CLIA# [id number] Electricity Trader: Reese Odell M.D. Performed By: #### L [id number] ####[facility] LABCLIA [id number] [place] [id number] [place] HPV REFLEX HPV if Atypical Normal [facility] Comment on above: Order Comment: Speci men Type: FLUID SPECIMENOrdering Facility: [facility] Address: [address] [place], [place] [address] Performed By: #### L [id number] ####[facility] LABCLIA [id number] [place] [id number] [place] INTERPRETATION, CYTOLOGY, MOTION AND TIME STUDY TEACHER Normal [facility] Comment on above: Order Comment: Speci men Type: FLUID SPECIMENOrdering Facility: [facility] Address: [address] [place], [place] [address] Result Comment: Nega tive for intraepithelial lesion or malignancy. Performed By: #### L [id number] ####[facility] LABCLIA [id number] [address] PAP DISCLAIMER COMMENT The Pap Smear is a screening test for cervical cancer. False negative results occur with all screening tests, emphasizing the need for rescreening at recommended intervals, and clinical correlation. Normal [facility] Comment on above: Order Comment: Speci men Type: FLUID SPECIMENOrdering Facility: [facility] Address: [address] [place] [address] Performed By: #### L [id number] ####[facility] LABIA [id number] [address] [place] PAP CONTACT CENTER PROFESSIONAL COMMENT This specimen has been analyzed by the ThinPrep Imaging System, an automated imaging and review system, which assists the laboratory in evaluating cells on ThinPrep Pap tests. Following automated imaging, selected huerta from every slide are reviewed by a marriage performer. Normal [facility] Comment on above: Order Comment: Speci men Type: FLUID SPECIMENOrdering Facility: [facility] Address: [address] [place] [address] Performed By: #### L [id number] ####[facility] [id number] [address] [place] CNOVon 02-04-2024 CNOV Office Visit (ENWSTR ) KALIE DESIR ([id number]) 2000 F Date Time Provider Department 02/04/24 [...] HISTORY P (more content not included)... Normal [facility] CNCOon 01-27-2024 CNCO Letter Text Normal [facility] CNOVon 01-27-2024 CNOV Office Visit (FAMPWS ) KALIE DESIR ([id number]) 2000 F Date Time Provider Department 01/27/24 [...] DKA. Is scheduled next week with new er tech. States she is feeling more motivated to [...] No history of dysuria, frequency or incontinence MOTION AND TIME STUDY TEACHER: Negative for abnormal vaginal bleeding, abnormal vaginal [...] clear. Nose (more content not included)... [facility] Nurse Visit (ENDIMT) KALIE DESIR ([id number]) 2000 F Date Time Provider Department 01/07/24 [...] Dexcom due to cost issues, plans to product picker after payday Meal Planning: reviewed basic meal [...] connect her insulin pump to the Clinic's [employer] account was sent to her along with the link for the Dexcom Patient Assistance program. DIABETES CARE AND EDUCATION PLAN: Individual follow-up Time Spent (Minutes): 30 This visit note will be communicated to the healthcare provider via access to shared medical record. SIGNATURE: Jackeline Shukla RN PATIENT NAME: Kalie Desir DATE: January 07, 2024 TIME: 10:25 AM Referring Provider: CHASITY HODGE [[id number]] Allergies As of Date: 01/07/2024 Noted Allergy [...] Encounter Status:Closed by JACKELINE [facility]LA [facility] Telephone (FAMPWS) KALIE DESIR ([id number]) 2000 F Date Time Provider Department 12/25/23 CHASITY HODGE [facility] During your visit today, we [...] 12/25/2023 10:26 AM Signed Encounter routed to [facility] to check if Veronika Dorado has any [...] Status:Closed by CHASITY MERRITT on 12/25/23 Normal [facility] Telephone (FAMPWS) THANGKALIE ([id number]) 2000 F Date Time Provider Department 12/25/23 [...] meds until she gets established with new er tech). MATEO Kan Lori, LPN 12/25/2023 8:49 AM [...] omnipods on 11/10/23, this was sent to [facility] in [place]. Enough med AND supplies to last until she finds another provider. IAN Gordillo Rayanne, PA-C 12/25/2023 9:17 AM Signed Please call [facility] and see if they have any medications [...] AM Signed She needs to at least product picker her insulin. Please let patient know. Also, we heard back from endocrinology. she was notified of being discharged from Dr. Chow's office back in October due to chronic noncompliance. This should have been plenty of time for her to notify us and get set up with new er tech vs waiting 2 months to see me [...] Status:Closed by APRIL JAMIL on 12/25/23 Normal [facility] ALBUMIN/CREATININE RATIO, UR INEon 12-24-2023 Albumin DL <= 20 mg/L (U) [Mass/Vol] mg/L mg/L [facility] Albumin/Creatinine (U) [Mass ratio] [facility] Comment on above: Not calculated Adult Male [...] [Mass/Vol] 36.3 mg/dL 20.0 - 300.0 mg/dL [facility] Albumin DL <= 20 mg/L (U) [Mass/Vol] mg/dL Normal [facility] Comment on above: Order Comment: Speci men Type: URINE SPECIMENOrdering Facility: [facility] Address: [address] [place] [address] Performed By: #### U ACR ####[facility] LABCLIA [id number] [place] [address] [place] Albumin/Creatinine (U) [Mass ratio] Normal [facility] Comment on above: Order Comment: Speci men Type: URINE SPECIMENOrdering Facility: [facility] Address: [address] [place] [address] Result Comment: Not calculated Adult Male and Female Nephrotic Criteria: <30 mg/g is considered normal to mildly increased 30-300 mg/g is considered moderately increased >300 mg/g is considered severely increased KDIGO. (2013). KDIGO 2012 Clinical Practice Guideline for the Evaluation and Management of Chronic Kidney Disease. Official Journal of the International Society of Nephrology, 3(1), 1-150. Performed By: #### U ACR ####[facility] LABCLIA [id number] [address] [place] Creatinine (U) [Mass/Vol] 36.3 mg/dL Normal 20.0-300.0 [facility] Comment on above: Order Comment: Speci men Type: URINE SPECIMENOrdering Facility: [facility] Address: [address] [place] [address] Performed By: #### U ACR ####[facility] LABCLIA [id number] [address] STATES OF [facility] CBC W Auto Differential pane l (Bld)on 12-24-2023 Basophils (Bld) [#/Vol] 0.05 10*3/uL [facility] Basophils/100 WBC (Bld) 0.8 % [facility] Differential cell count method Nom (Bld) Auto [facility] Eosinophils (Bld) [#/Vol] 0.12 10*3/uL [facility] Eosinophils/100 WBC (Bld) 2.0 % [facility] Erythrocyte distribution width (RBC) [Ratio] 13.1 % 11.5 - 15.0 % [facility] Hematocrit (Bld) [Volume fraction] 42.5 % 36.0 - 46.0 % [facility] Hemoglobin (Bld) [Mass/Vol] 13.6 g/dL 11.5 - 15.5 g/dL [facility] Immature granulocytes (Bld) [#/Vol] NINF [facility] Immature granulocytes/100 WBC (Bld) 0.2 % [facility] Lymphocytes (Bld) [#/Vol] 1.25 10*3/uL [facility] Lymphocytes/100 WBC (Bld) 20.6 % [facility] MCH (RBC) [Entitic mass] 27.7 pg 26.0 - 34.0 pg [facility] MCHC (RBC) [Mass/Vol] 32.0 g/dL 30.5 - 36.0 g/dL [facility] MCV (RBC) [Entitic vol] 86.6 fL 80.0 - 100.0 fL [facility] Monocytes (Bld) [#/Vol] 0.29 10*3/uL [facility] Monocytes/100 WBC (Bld) 4.8 % [facility] Neutrophils (Bld) [#/Vol] 4.34 10*3/uL [facility] Neutrophils/100 WBC (Bld) 71.6 % [facility] Nucleated RBC (Bld) [#/Vol] NINF [facility] Nucleated RBC/100 WBC (Bld) [Ratio] 0.0 % /100 WBC [facility] Platelet mean volume (Bld) [Entitic vol] 9.3 fL 9.0 - 12.7 fL [facility] Platelets (Bld) [#/Vol] 384 10*3/uL [facility] RBC (Bld) [#/Vol] 4.91 10*6/uL 3.90 - 5.2 0 m/uL [facility] WBC (Bld) [#/Vol] 6.06 10*3/uL [facility] Basophils (Bld) [#/Vol] 0.05 10*3/uL Normal <0.11 [facility] Comment on above: Order Comment: Speci men Type: BLOOD SPECIMENOrdering Facility: [facility] Address: [address] [place] [address] Performed By: #### 5 7021-8 ####[facility] LABCLIA [id number] [place] [address] [place] Basophils/100 WBC (Bld) 0.8 % Normal [facility] Comment on above: Order Comment: Speci men Type: BLOOD SPECIMENOrdering Facility: [facility] Address: [address] [place] [address] Performed By: #### 5 7021-8 ####[facility] LABCLIA [id number] [place] [address] [place] Differential cell count method Nom (Bld) Auto Normal [facility] Comment on above: Order Comment: Speci men Type: BLOOD SPECIMENOrdering Facility: [facility] Address: [address] [place] [address] Performed By: #### 5 7021-8 ####[facility] LABCLIA [id number] [place] [address] [place] Eosinophils (Bld) [#/Vol] 0.12 10*3/uL Normal <0.46 [facility] Comment on above: Order Comment: Speci men Type: BLOOD SPECIMENOrdering Facility: [facility] Address: [address] [place] [address] Performed By: #### 5 7021-8 ####[facility] LABIA [id number] [place] [address] [place] Eosinophils/100 WBC (Bld) 2.0 % Normal [facility] Comment on above: Order Comment: Speci men Type: BLOOD SPECIMENOrdering Facility: [facility] Address: [address] [place] [address] Performed By: #### 5 7021-8 ####[facility] LABIA [id number] [place] [address] [place] Erythrocyte distribution width (RBC) [Ratio] 13.1 % Normal 11.5-15.0 [facility] Comment on above: Order Comment: Speci men Type: BLOOD SPECIMENOrdering Facility: [facility] Address: [address] [place] [address] Performed By: #### 5 7021-8 ####[facility] LABIA [id number] [place] [address] [place] Hematocrit (Bld) [Volume fraction] 42.5 % Normal 36.0-46.0 [facility] Comment on above: Order Comment: Speci men Type: BLOOD SPECIMENOrdering Facility: [facility] Address: [address] [place] [address] Performed By: #### 5 7021-8 ####[facility] LABCLIA [id number] [place] [address] [place] Hemoglobin (Bld) [Mass/Vol] 13.6 g/dL Normal 11.5-15.5 [facility] Comment on above: Order Comment: Speci men Type: BLOOD SPECIMENOrdering Facility: [facility] Address: [address] [place] [address] Performed By: #### 5 7021-8 ####[facility] LABCLIA [id number] [place] [address] [place] Immature granulocytes (Bld) [#/Vol] 10*3/uL Normal <0.10 [facility] Comment on above: Order Comment: Speci men Type: BLOOD SPECIMENOrdering Facility: [facility] Address: [address] [place] [address] Performed By: #### 5 7021-8 ####[facility] LABIA [id number] [place] [address] [place] Immature granulocytes/100 WBC (Bld) 0.2 % Normal [facility] Comment on above: Order Comment: Speci men Type: BLOOD SPECIMENOrdering Facility: [facility] Address: [address] [place] [address] Performed By: #### 5 7021-8 ####[facility] LABIA [id number] [place] [address] [place] Lymphocytes (Bld) [#/Vol] 1.25 10*3/uL Normal 1.00-4.00 [facility] Comment on above: Order Comment: Speci men Type: BLOOD SPECIMENOrdering Facility: [facility] Address: [address] [place] [address] Performed By: #### 5 7021-8 ####[facility] LABIA [id number] [place] [address] [place] Lymphocytes/100 WBC (Bld) 20.6 % Normal [facility] Comment on above: Order Comment: Speci men Type: BLOOD SPECIMENOrdering Facility: [facility] Address: [address] [place] [address] Performed By: #### 5 7021-8 ####[facility] LABIA [id number] [place] [address] [place] MCH (RBC) [Entitic mass] 27.7 pg Normal 26.0-34.0 [facility] Comment on above: Order Comment: Speci men Type: BLOOD SPECIMENOrdering Facility: [facility] Address: [address] [place] [address] Performed By: #### 5 7021-8 ####[facility] LABIA [id number] [place] [address] [place] MCHC (RBC) [Mass/Vol] 32.0 g/dL Normal 30.5-36.0 [facility] Comment on above: Order Comment: Speci men Type: BLOOD SPECIMENOrdering Facility: [facility] Address: [address] [place] [address] Performed By: #### 5 7021-8 ####[facility] LABIA [id number] [place] [address] [place] MCV (RBC) [Entitic vol] 86.6 fL Normal 80.0-100.0 [facility] Comment on above: Order Comment: Speci men Type: BLOOD SPECIMENOrdering Facility: [facility] Address: [address] [place] [address] Performed By: #### 5 7021-8 ####[facility] LABIA [id number] [place] [address] [place] Monocytes (Bld) [#/Vol] 0.29 10*3/uL Normal <0.87 [facility] Comment on above: Order Comment: Speci men Type: BLOOD SPECIMENOrdering Facility: [facility] Address: [address] [place] [address] Performed By: #### 5 7021-8 ####[facility] LABCLIA [id number] [place] [address] [place] Monocytes/100 WBC (Bld) 4.8 % Normal [facility] Comment on above: Order Comment: Speci men Type: BLOOD SPECIMENOrdering Facility: [facility] Address: [address] [place] [address] Performed By: #### 5 7021-8 ####[facility] LABCLIA [id number] [place] [address] [place] Neutrophils (Bld) [#/Vol] 4.34 10*3/uL Normal 1.45-7.50 [facility] Comment on above: Order Comment: Speci men Type: BLOOD SPECIMENOrdering Facility: [facility] Address: [address] [place] [address] Performed By: #### 5 7021-8 ####[facility] LABCLIA [id number] [place] [address] [place] Neutrophils/100 WBC (Bld) 71.6 % Normal [facility] Comment on above: Order Comment: Speci men Type: BLOOD SPECIMENOrdering Facility: [facility] Address: [address] [place] [address] Performed By: #### 5 7021-8 ####[facility] LABCLIA [id number] [place] [address] [place] Nucleated RBC (Bld) [#/Vol] 10*3/uL Normal <0.01 [facility] Comment on above: Order Comment: Speci men Type: BLOOD SPECIMENOrdering Facility: [facility] Address: [address] [place] [address] Performed By: #### 5 7021-8 ####[facility] LABCLIA [id number] [id number], [place] [address] [place] Nucleated RBC/100 WBC (Bld) [Ratio] 0.0 /100 WBC Normal [facility] Comment on above: Order Comment: Speci men Type: BLOOD SPECIMENOrdering Facility: [facility] Address: [address] [place] [address] Performed By: #### 5 7021-8 ####[facility] LABCLIA [id number] [place] [address] [place] Platelet mean volume (Bld) [Entitic vol] 9.3 fL Normal 9.0-12.7 [facility] Comment on above: Order Comment: Speci men Type: BLOOD SPECIMENOrdering Facility: [facility] Address: [address] [place] [address] Performed By: #### 5 7021-8 ####[facility] LABCLIA [id number] [place] [address] [place] Platelets (Bld) [#/Vol] 384 10*3/uL Normal 150-400 [facility] Comment on above: Order Comment: Speci men Type: BLOOD SPECIMENOrdering Facility: [facility] Address: [address] [place] [address] Performed By: #### 5 7021-8 ####[facility] LABCLIA [id number] [place] [address] [place] RBC (Bld) [#/Vol] 4.91 10*6/uL Normal 3.90-5.20 [facility] Comment on above: Order Comment: Speci men Type: BLOOD SPECIMENOrdering Facility: [facility] Address: [address] [place] [address] Performed By: #### 5 7021-8 ####[facility] LABCLIA [id number] [place] [address] [place] WBC (Bld) [#/Vol] 6.06 10*3/uL Normal 3.70-11.00 [facility] Comment on above: Order Comment: Speci men Type: BLOOD SPECIMENOrdering Facility: [facility] Address: [address] [place] [place] [id number] Performed By: #### 5 7021-8 ####[facility] LABCLIA [id number] [id number] [id number] [place] CNOVon 12-24-2023 CNOV Office Visit (FAMPWS ) KALIE DESIR ([id number]) 2000 F Date Time Provider Department 12/24/23 [...] scanning reader (FREESTYLE DANIELA 14 DAY READER) [facility] For blood sugar checks 4 times a day (Patient not taking: Reported on 10/16/2022) potassium chloride ER (K-DUR, KLOR-CON) 20 mEq tablet Take 20 mEq by mouth twice daily. (Patient not taking: Reported on 12/24/2023) Insulin [place], Disposable, (OPAL PEN NEEDLE) 32 gauge x [...] Inject 1 (more content not included)... Normal [facility] Comprehensive metabolic 2000 panelon 12-24-2023 Albumin [Mass/Vol] 4.4 g/dL 3.9 - 4.9 g/dL [facility] ALP [Catalytic activity/Vol] 79 U/L 34 - 123 U/L [facility] ALT [Catalytic activity/Vol] 10 U/L 7 - 38 U/L [facility] Anion gap [Moles/Vol] 11 mmol/L 8 - 15 mmol/L [facility] AST [Catalytic activity/Vol] 17 U/L 13 - 35 U/L [facility] Bilirubin [Mass/Vol] 0.5 mg/dL 0.2 - 1 .3 mg/dL [facility] Calcium [Mass/Vol] 9.9 mg/dL 8.5 - 10. 2 mg/dL [facility] Chloride [Moles/Vol] 102 mmol/L 98 - 10 7 mmol/L [facility] CO2 [Moles/Vol] 23 mmol/L 22 - 30 mmol/L [facility] Creatinine [Mass/Vol] 0.54 mg/dL Low 0.58 - 0.96 mg/dL [facility] GFR/1.73 sq M.predicted among non-blacks MDRD (S/P/Bld) [Vol rate/Area] 131 mL/min/{1.73_m2} - PINF [facility] Comment on above: Estimated Glomerular Filtration Rate [...] 353 mg/dL High 74 - 99 mg/dL [facility] Comment on above: The [place] Diabete s Association (ADA) provides guidance for [...] Standards of Medical Care in Diabetes 2016, [place] Diabetes Association. Diabetes Care. 2016.39(Suppl 1). Interpretation and review of laboratory results Abnormal [facility] Potassium [Moles/Vol] 4.8 mmol/L 3.7 - 5.1 mmol/L [facility] Protein [Mass/Vol] 7.1 g/dL 6.3 - 8.0 g/dL [facility] Sodium [Moles/Vol] 136 mmol/L 136 - 144 mmol/L [facility] Urea nitrogen [Mass/Vol] 17 mg/dL 7 - 21 mg/dL [facility] Albumin [Mass/Vol] 4.4 g/dL Normal 3.9-4.9 [facility] Comment on above: Order Comment: Speci men Type: BLOOD SPECIMENOrdering Facility: [facility] Address: [address] [place], [place] [address] Performed By: #### L IPNF, 64666-3 ####[facility] LABCLIA [id number] [place] [address] [place] ALP [Catalytic activity/Vol] 79 U/L Normal 34-123 [facility] Comment on above: Order Comment: Speci men Type: BLOOD SPECIMENOrdering Facility: [facility] Address: [address] [place] [address] Performed By: #### L IPNF, 31615-8 ####[facility] LABCLIA [id number] [place] [address] [place] ALT [Catalytic activity/Vol] 10 U/L Normal 7-38 [facility] Comment on above: Order Comment: Speci men Type: BLOOD SPECIMENOrdering Facility: [facility] Address: [address] [place] [address] Performed By: #### L IPNF, 02284-1 ####[facility] LABCLIA [id number] [place] [address] [place] Anion gap [Moles/Vol] 11 mmol/L Normal 8-15 [facility] Comment on above: Order Comment: Speci men Type: BLOOD SPECIMENOrdering Facility: [facility] Address: [address] [place] [address] Performed By: #### L IPNF, ####[facility] LABCLIA [id number] [place] [address] [place] AST [Catalytic activity/Vol] 17 U/L Normal 13-35 [facility] Comment on above: Order Comment: Speci men Type: BLOOD SPECIMENOrdering Facility: [facility] Address: [address] [place] [address] Performed By: #### L IPNF, ####[facility] LABCLIA [id number] [place] [address] [place] Bilirubin [Mass/Vol] 0.5 mg/dL Normal 0.2-1.3 [facility] Comment on above: Order Comment: Speci men Type: BLOOD SPECIMENOrdering Facility: [facility] Address: [address] [place] [address] Performed By: #### L IPNF, 77446-3 ####[facility] LABCLIA [id number] [place] [address] [place] Calcium [Mass/Vol] 9.9 mg/dL Normal 8.5-10.2 [facility] Comment on above: Order Comment: Speci men Type: BLOOD SPECIMENOrdering Facility: [facility] Address: [address] [place] [address] Performed By: #### L IPNF, 35240-5 ####[facility] LABCLIA [id number] [place] [address] [place] Chloride [Moles/Vol] 102 mmol/L Normal 98-107 [facility] Comment on above: Order Comment: Speci men Type: BLOOD SPECIMENOrdering Facility: [facility] Address: [address] [place] [address] Performed By: #### L IPNF, 64874-8 ####[facility] LABCLIA [id number] [place] [address] [place] CO2 [Moles/Vol] 23 mmol/L Normal 22-30 [facility] Comment on above: Order Comment: Speci men Type: BLOOD SPECIMENOrdering Facility: [facility] Address: [address] [place] [address] Performed By: #### L IPNF, 26258-2 ####[facility] LABCLIA [id number] [place] [address] [place] Creatinine [Mass/Vol] 0.54 mg/dL Low 0.58-0.96 [facility] Comment on above: Order Comment: Carol escalera Type: BLOOD SPECIMENOrdering Facility: [facility] Address: [address] [place] [address] Performed By: #### L IPNF, 02527-9 ####[facility] LABCLIA [id number] [place] [address] [place] Creatinine and Glomerular filtration rate.predicted panel (S/P/Bld) 131 mL/min/1.73m??? Normal >=60 [facility] Comment on above: Order Comment: Carol escalera Type: BLOOD SPECIMENOrdering Facility: [facility] Address: [address] [place] [address] Result Comment: Lisa mated Glomerular Filtration Rate [...] actual GFR. Performed By: #### L IPNF, 42693-6 ####[facility] LABCLIA [id number] [place] [address] [place] Glucose [Mass/Vol] 353 mg/dL High 74-99 [facility] Comment on above: Order Comment: Carol escalera Type: BLOOD SPECIMENOrdering Facility: [facility] Address: [address] [place] [address] Result Comment: The [place] Diabetes Association (ADA) provides guidance for cutoff [...] Standards of Medical Care in Diabetes 2016, [place] Diabetes Association. Diabetes Care. 2016.39(Suppl 1). Performed By: #### L IPNF, 10602-7 ####[facility] LABCLIA [id number] [place] [address] [place] Potassium [Moles/Vol] 4.8 mmol/L Normal 3.7-5.1 [facility] Comment on above: Order Comment: Speci men Type: BLOOD SPECIMENOrdering Facility: [facility] Address: [address] [place] [address] Performed By: #### L IPNF, 07127-6 ####[facility] LABCLIA [id number] [place] [address] [place] Protein [Mass/Vol] 7.1 g/dL Normal 6.3-8.0 [facility] Comment on above: Order Comment: Speci men Type: BLOOD SPECIMENOrdering Facility: [facility] Address: [address] [place] [address] Performed By: #### L IPNF, 68224-4 ####[facility] LABCLIA [id number] [place] [address] [place] Sodium [Moles/Vol] 136 mmol/L Normal 136-144 [facility] Comment on above: Order Comment: Speci men Type: BLOOD SPECIMENOrdering Facility: [facility] Address: [address] [place] [address] Performed By: #### L IPNF, 72348-5 ####[facility] LABCLIA [id number] [place] [address] [place] Urea nitrogen [Mass/Vol] 17 mg/dL Normal 7-21 [facility] Comment on above: Order Comment: Speci men Type: BLOOD SPECIMENOrdering Facility: [facility] Address: [address] [place] [address] Performed By: #### L IPNF, 88236-1 ####[facility] LABCLIA [id number] [place] [address] [place] HbA1c (Bld)on 12-24-2023 Average glucose Estimated from glycated hemoglobin (Bld) [Mass/Vol] 243 mg/dL [facility] Comment on above: eAG: (Estimated aver age glucose) is a calculated value from HgbA1c and is personal banking representative of the average blood glucose level in the last 2-3 month period. HbA1c (Bld) [Mass fraction] 10.1 % High 4.3 - 5.6 % [facility] Comment on above: [place] Diabetes As sociation guidelines indicate that patients with HgbA1c in the range 5.7-6.4% are at increased risk for development of diabetes, and intervention by lifestyle modification may be beneficial. HgbA1c greater or equal to 6.5% is considered diagnostic of diabetes. Interpretation and review of laboratory results Abnormal [facility] Average glucose Estimated from glycated hemoglobin (Bld) [Mass/Vol] 243 mg/dL Normal [facility] Comment on above: Order Comment: Carol escalera Type: BLOOD SPECIMENOrdering Facility: [facility] Address: [address] [place] [address] Result Comment: eAG: (Estimated average glucose) is a calculated value from HgbA1c and is personal banking representative of the average blood glucose level in the last 2-3 month period. Performed By: #### 5 5454-3 ####[facility] LABCLIA [id number] [place] [address] [place] HbA1c (Bld) [Mass fraction] 10.1 % High 4.3-5.6 [facility] Comment on above: Order Comment: Carol escalera Type: BLOOD SPECIMENOrdering Facility: [facility] Address: [address] [place] [address] Result Comment: [place] Diabetes Association guidelines indicate that patients with HgbA1c in the range 5.7-6.4% are at increased risk for development of diabetes, and intervention by lifestyle modification may be beneficial. HgbA1c greater or equal to 6.5% is considered diagnostic of diabetes. Performed By: #### 5 5454-3 ####[facility] LABCLIA [id number] [address] [address] [place] LIPID PANEL, NONFASTINGon Cholesterol [Mass/Vol] 175 mg/dL NINF - 200 mg/dL [facility] Comment on above: <200 mg/dL, Desirabl e 200-239 mg/dL, Borderline high >239 mg/dL, High HDL Cholesterol, Nonfasting 81 mg/dL 39 - PINF mg/dL [facility] Comment on above: 40-59 mg/dL, Accepta ble >59 mg/dL, High: Negative risk factor for coronary heart disease <40 mg/dL, Low: Positive risk factor for coronary heart disease Interpretation and review of laboratory results Normal [facility] LDL Cholesterol, Nonfasting 81 mg/dL NINF - 100 mg/dL [facility] Comment on above: <100 mg/dL, Optimal 100-129 mg/dL, Near optimal/above optimal 130-159 mg/dL, Borderline high 160-189 mg/dL, High >189 mg/dL, Very high Secondary prevention optimal LDL Cholesterol levels are recommended to be < 70 mg/dL LDL/HDL Ratio, Nonfasting 1.00 mg/dL NINF - 2.54 mg/dL [facility] Comment on above: Reference: 1. National Cholesterol Education Program ATP III Guideline At-A-Glance Quick Desk Reference: National Heart, Lung, and Blood [place]. National Institutes of Health. 2001: NIH Publication No. 01-3305. 2. An International Atherosclerosis Society position paper: global recommendations for the management of dyslipidemia: executive summary, Atherosclerosis. 2014: 232(2):410-413. Non HDL Cholesterol, Nonfasting 94 mg/dL NINF - 130 mg/dL [facility] Comment on above: <130 mg/dL, Optimal 130-159 mg/dL, Near optimal/above optimal 160-189 mg/dL, Borderline high 190-219 mg/dL, High >219 mg/dL, Very high Secondary prevention optimal non HDL Cholesterol levels are recommended to be <100 mg/dL Total Chol/HDL Ratio, Nonfasting 2.16 mg/dL NINF - 5.10 mg/dL [facility] Triglycerides, Nonfasting 67 mg/dL NINF - 150 mg/dL [facility] Comment on above: <150 mg/dL, Normal 150-199 mg/dL, Borderline high 200-499 mg/dL, High >499 mg/dL, Very high VLDL Cholesterol, Nonfasting 13 mg/dL NINF - 30 mg/dL [facility] Cholesterol [Mass/Vol] 175 mg/dL Normal <200 [facility] Comment on above: Order Comment: Speci men Type: BLOOD SPECIMENOrdering Facility: [facility] Address: [address] [place] [address] Result Comment: <200 mg/dL, Desirable 200-239 mg/dL, Borderline high >239 mg/dL, High Performed By: #### L IPNF, 70619-5 ####[facility] LABCLIA [id number] [place] [address] [place] HDL CHOLESTEROL, NF 81 mg/dL Normal >39 [facility] Comment on above: Order Comment: Speci men Type: BLOOD SPECIMENOrdering Facility: [facility] Address: [address] [place] [address] Result Comment: 40-5 9 mg/dL, Acceptable >59 mg/dL, High: Negative risk factor for coronary heart disease <40 mg/dL, Low: Positive risk factor for coronary heart disease Performed By: #### L IPJEAN, ####[facility] LABCLIA [id number] [place] [address] [place] LDL CHOLESTEROL, NF 81 mg/dL Normal <100 [facility] Comment on above: Order Comment: Speci men Type: BLOOD SPECIMENOrdering Facility: [facility] Address: [address] [place] [address] Result Comment: <100 mg/dL, Optimal 100-129 mg/dL, Near optimal/above optimal 130-159 mg/dL, Borderline high 160-189 mg/dL, High >189 mg/dL, Very high Secondary prevention optimal LDL Cholesterol levels are recommended to be < 70 mg/dL Performed By: #### L IPNF, 27766-5 ####[facility] LABCLIA [id number] [place] [address] [place] LDL/HDL RATIO, NF 1.00 mg/dL Normal <2.54 [facility] Comment on above: Order Comment: Bogdani men Type: BLOOD SPECIMENOrdering Facility: [facility] Address: [address] [place] [address] Result Comment: Michelle hankins: 1. National Cholesterol Education Program ATP III Guideline At-A-Glance Quick Desk Reference: National Heart, Lung, and Blood [place]. National Institutes of Health. 2001: NIH Publication No. 01-3305. 2. An International Atherosclerosis Society position paper: global recommendations for the management of dyslipidemia: executive summary, Atherosclerosis. 2014: 232(2):410-413. Performed By: #### L IPNF, ####[facility] LABCLIA [id number] [place] [address] [place] NON HDL CHOL, NF 94 mg/dL Normal <130 [facility] Comment on above: Order Comment: Carol escalera Type: BLOOD SPECIMENOrdering Facility: [facility] Address: [address] [place] [address] Result Comment: <130 mg/dL, Optimal 130-159 mg/dL, Near optimal/above optimal 160-189 mg/dL, Borderline high 190-219 mg/dL, High >219 mg/dL, Very high Secondary prevention optimal non HDL Cholesterol levels are recommended to be <100 mg/dL Performed By: #### L IPNF, ####[facility] LABCLIA [id number] [place] [address] [place] T CHOL/HDL RATIO NF 2.16 mg/dL Normal <5.10 [facility] Comment on above: Order Comment: Bogdani men Type: BLOOD SPECIMENOrdering Facility: [facility] Address: [address] [place] [address] Performed By: #### L IPNF, ####[facility] LABCLIA [id number] [place] [address] [place] TRIGLYCERIDES, NF 67 mg/dL Normal <150 [facility] Comment on above: Order Comment: Bogdani men Type: BLOOD SPECIMENOrdering Facility: [facility] Address: [address] [place] [address] Result Comment: <150 mg/dL, Normal 150-199 mg/dL, Borderline high 200-499 mg/dL, High >499 mg/dL, Very high Performed By: #### L RAMIRO, 40963-0 ####[facility] LABCLIA [id number] [place] [address] [place] VLDL CHOLESTEROL, NF 13 mg/dL Normal <30 [facility] Comment on above: Order Comment: Speci men Type: BLOOD SPECIMENOrdering Facility: [facility] Address: [address] [place] [address] Performed By: #### L IPJEAN, 03071-3 ####[facility] LABCLIA [id number] [address] [place] No Panel Informationon 12-23 [facility] Urinalysis complete panel (U )on 12-24-2023 Bacteria LM.HPF (Urine sed) [#/Area] Negative Negative /HPF [facility] Bilirubin Ql (U) Negative Negative [facility] Clarity (Unsp spec) Clear Clear [facility] Color (U) Yellow Yellow [facility] Epithelial cells LM.HPF (Urine sed) [#/Area] None Seen /HPF [facility] Glucose Test strip (U) [Mass/Vol] 3+ Abnormal Negative [facility] Hemoglobin Ql (U) Negative Negative [facility] Hyaline casts (Urine sed) [#/Area] 0 /[LPF] 0 /LPF [facility] Interpretation and review of laboratory results Abnormal [facility] Ketones Ql (U) Negative Negative [facility] Leukocyte esterase Test strip Ql (U) Negative Negative [facility] Nitrite Ql (U) Negative Negative [facility] pH (U) 6.0 [pH] NINF - 8.5 [facility] Protein (U) [Mass/Vol] Negative Negative [facility] RBC LM.HPF (Urine sed) [#/Area] 0-2 /HPF 0-2 /HPF [facility] Specific gravity (U) [Rel density] 1.032 High 1.005 - 1.030 [facility] Urobilinogen Ql (U) 0.2 EU/dL 0.2-1.0 EU/dL [facility] WBC LM.HPF (Urine sed) [#/Area] 0-5 /HPF 0-5 /HPF [facility] This test was developed and its performance characteristics determined by [facility]'s [facility] Pathology and Laboratory Medicine [place] ([facility]). It has not been cleared or approved by the FDA. -[facility] is regulated under CLIA as qualified to perform high-complexity testing. This test is used for clinical purposes. It should not be regarded as investigational or for research. [facility] Bacteria LM.HPF (Urine sed) [#/Area] Negative Normal Negative [facility] Comment on above: Order Comment: Speci men Type: URINE SPECIMENOrdering Facility: [facility] Address: [address] [place] [address] Performed By: #### 2 4356-8 ####[facility] LABCLIA [id number] [place] [address] [place] Bilirubin Ql (U) Negative Normal Negative [facility] Comment on above: Order Comment: Speci men Type: URINE SPECIMENOrdering Facility: [facility] Address: [address] [place] [address] Performed By: #### 2 4356-8 ####[facility] LABCLIA [id number] [place] [address] [place] Clarity (Unsp spec) Clear Normal Clear [facility] Comment on above: Order Comment: Speci men Type: URINE SPECIMENOrdering Facility: [facility] Address: [address] [place] [address] Performed By: #### 2 4356-8 ####[facility] LABCLIA [id number] [place] [address] [place] Color (U) Yellow Normal Yellow [facility] Comment on above: Order Comment: Speci men Type: URINE SPECIMENOrdering Facility: [facility] Address: [address] [place] [address] Performed By: #### 2 4356-8 ####[facility] LABCLIA [id number] [place] [address] [place] Epithelial cells LM.HPF (Urine sed) [#/Area] None Seen Normal [facility] Comment on above: Order Comment: Speci men Type: URINE SPECIMENOrdering Facility: [facility] Address: [address] [place] [address] Performed By: #### 2 4356-8 ####[facility] LABCLIA [id number] [place] [address] [place] Glucose Test strip (U) [Mass/Vol] 3+ Abnormal Negative [facility] Comment on above: Order Comment: Speci men Type: URINE SPECIMENOrdering Facility: [facility] Address: [address] [place] [address] Performed By: #### 2 4356-8 ####[facility] LABCLIA [id number] [place] [address] [place] Hemoglobin Ql (U) Negative Normal Negative [facility] Comment on above: Order Comment: Speci men Type: URINE SPECIMENOrdering Facility: [facility] Address: [address] [place] [address] Performed By: #### 2 4356-8 ####[facility] LABCLIA [id number] [place] [address] [place] Hyaline casts (Urine sed) [#/Area] 0 /[LPF] Normal 0 /LPF [facility] Comment on above: Order Comment: Speci men Type: URINE SPECIMENOrdering Facility: [facility] Address: [address] [place] [address] Performed By: #### 2 4356-8 ####[facility] LABCLIA [id number] [place] [address] [place] Ketones Ql (U) Negative Normal Negative [facility] Comment on above: Order Comment: Speci men Type: URINE SPECIMENOrdering Facility: [facility] Address: [address] [place] [address] Performed By: #### 2 4356-8 ####[facility] LABCLIA [id number] [place] [address] [place] Leukocyte esterase Test strip Ql (U) Negative Normal Negative [facility] Comment on above: Order Comment: Speci men Type: URINE SPECIMENOrdering Facility: [facility] Address: [address] [place] [address] Performed By: #### 2 4356-8 ####[facility] LABCLIA [id number] [place] [address] [place] Nitrite Ql (U) Negative Normal Negative [facility] Comment on above: Order Comment: Speci men Type: URINE SPECIMENOrdering Facility: [facility] Address: [address] [place] [address] Performed By: #### 2 4356-8 ####[facility] LABCLIA [id number] [place] [address] [place] pH (U) 6.0 [pH] Normal <8.5 [facility] Comment on above: Order Comment: Speci men Type: URINE SPECIMENOrdering Facility: [facility] Address: [address] [place] [address] Performed By: #### 2 4356-8 ####[facility] LABCLIA [id number] [place] [address] [place] Protein (U) [Mass/Vol] Negative Normal Negative [facility] Comment on above: Order Comment: Speci men Type: URINE SPECIMENOrdering Facility: [facility] Address: [address] [place] [address] Performed By: #### 2 4356-8 ####[facility] LABCLIA [id number] [place] [address] [place] RBC LM.HPF (Urine sed) [#/Area] 0-2 /HPF Normal 0-2 /HPF [facility] Comment on above: Order Comment: Speci men Type: URINE SPECIMENOrdering Facility: [facility] Address: [address] [place] [address] Performed By: #### 2 4356-8 ####[facility] LABIA [id number] [place] [address] [place] Specific gravity (U) [Rel density] 1.032 High 1.005-1.030 [facility] Comment on above: Order Comment: Speci men Type: URINE SPECIMENOrdering Facility: [facility] Address: [address] [place] [address] Performed By: #### 2 4356-8 ####[facility] LABIA [id number] [place] [address] [place] Urobilinogen Ql (U) 0.2 EU/dL Normal 0.2-1.0 EU/dL [facility] Comment on above: Order Comment: Speci men Type: URINE SPECIMENOrdering Facility: [facility] Address: [address] [place] [address] Performed By: #### 2 4356-8 ####[facility] LABIA [id number] [place] [address] [place] WBC LM.HPF (Urine sed) [#/Area] 0-5 /HPF Normal 0-5 /HPF [facility] Comment on above: Order Comment: Speci men Type: URINE SPECIMENOrdering Facility: [facility] Address: [address] [place] [address] Performed By: #### 2 4356-8 ####[facility] LABIA [id number] [place] [address] [place] Basophil percentageOrdered B y: Damien Villagran on 11-28-2023 Chloride [Moles/Vol] 103 mmol/L 98-107 [facility] Glucose [Mass/Vol] 250 mg/dL 74-106 [facility] Comment on above: Glucose result great er than or equal to 200 mg/dLsuggests DIABETES MELLITUS per A.D.A. criteria. Potassium [Moles/Vol] 3.0 mmol/L 3.5-5.1 [facility] Sodium [Moles/Vol] 136 mmol/L 136-145 [facility] Laboratory - Chemistry and C hemistry - challengeOrdered By: Damien Villagran on 11-28-2023 CO2 [Moles/Vol] 19.0 mmol/L 21.0-32.0 [facility] Urea nitrogen/Creatinine [Mass ratio] 6.4 mg/mg 10 [facility] No Panel InformationOrdered By: Damien Villagran on 11-28-2023 Estimated Creatinine Clearance Calc 116.01 ml/min [facility] Estimated GFR (MDRD) Amer 150 mL/min >60 [facility] Comment on above: GFR Calc Estimated GFR (MDRD) Non-Af Amer 124 mL/min >60 [facility] Comment on above: Non- GFR Calc Serum or plasma acetone edward urement (mass/volume)Ordered By: Jackeline Aguilar on 11-28-2023 Acetone [Mass/Vol] SMALL NEG [facility] Serum or plasma calcium edward urement (mass/volume)Ordered By: Damien Villagran on 11-28-2023 Calcium [Mass/Vol] 8.7 mg/dL 8.5-10.1 [facility] Serum or plasma creatinine m easurement (mass/volume)Ordered By: Damien Villagran on 11-28-2023 Creatinine [Mass/Vol] 0.62 mg/dL 0.55-1.02 [facility] Comment on above: The validity of the calculated GFR & GFRAA in patients over 70 years has not been determined. Clinical correlation is essential. Serum or plasma urea nitroge n measurement (mass/volume)Ordered By: Damien Villagran on 11-28-2023 Urea nitrogen [Mass/Vol] 4 mg/dL 7-18 [facility] Thin prep Papanicolaou smear with manual screeningOrdered By: Damien Villagran on 11-28-2023 Thin prep Papanicolaou smear with manual screening 216 mg/dL 74-106 [facility] Comment on above: MANAGEMENT OF PATIEN T CARE PER NURSING PROTOCOL Thin prep Papanicolaou smear with manual screening 14 5-15 [facility] Absolute lymphocyte countOrd ered By: Damien Villagran on 11-27-2023 Lymphocytes Auto (Unsp spec) [#/Vol] 1.90 10*3/uL 0.83-4.51 [facility] Automated lymphocyte count a s percentage of total leukocytesOrdered By: Damien Villagran on 11-27-2023 Lymphocytes/100 WBC Auto (Unsp spec) 9.7 % 19-41 [facility] Basophil percentageOrdered B y: Damien Villagran on 11-27-2023 Basophils/100 WBC (Bld) 0.1 % 0-1 [facility] Eosinophils/100 WBC (Bld) 0.0 % 0-5 [facility] Hemoglobin (Bld) [Mass/Vol] 13.4 g/dL 12.0-15.0 [facility] Monocytes/100 WBC (Bld) 4.0 % 0-10 [facility] Neutrophils (Bld) [#/Vol] 16.7 10*3/uL 2.0-7.7 [facility] Neutrophils/100 WBC (Bld) 85.7 % 47-70 [facility] WBC (Bld) [#/Vol] 19.5 10*3/uL 4.4-11.0 [facility] Determination of erythrocyte mean corpuscular volume (MCV)Ordered By: Damien Villagran on 11-27-2023 MCV (RBC) [Entitic vol] 87.1 fL 81-99 [facility] Erythrocyte distribution wid th ratioOrdered By: Damien Villagran on 11-27-2023 Erythrocyte distribution width (RBC) [Ratio] 13.5 % 11.6-14.6 [facility] Erythrocyte distribution wid th standard deviationOrdered By: Damien Villagran on 11-27-2023 Erythrocyte distribution width (RBC) [Entitic vol] 42.5 fL 35.1-43.9 [facility] Hematocrit Auto (Bld) [Volum e fraction]Ordered By: Damien Villagran on 11-27-2023 Hematocrit (Bld) [Volume fraction] 42.6 % 37-47 [facility] Immature granulocytes/100 WB C Auto (Bld)Ordered By: Damien Villagran on 11-27-2023 Immature granulocytes/100 WBC (Bld) 0.500 % 0.0-0.9 [facility] Comment on above: IG% - Immature Granu locytes (promyelocytes, myelocytes and metamyelocytes) > 1% indicates that a LEFT SHIFT is Present. Laboratory - Hematology and Cell countsOrdered By: Damien Villagran on 11-27-2023 MCH (RBC) [Entitic mass] 27.4 pg 27.0-32.0 [facility] MCHC (RBC) [Mass/Vol] 31.5 g/dL 32-36 [facility] Nucleated RBC/100 WBC (Bld) [Ratio] 0 % 0-5 [facility] Platelet mean volume (Bld) [Entitic vol] 9.0 fL 6.2-12.0 [facility] Platelets (Bld) [#/Vol] 386 10*3/uL 150-450 [facility] RBC Auto (Bld) [#/Vol]Ordere d By: Damien Villagran on 11-27-2023 RBC (Bld) [#/Vol] 4.89 10*6/uL 4.2-5.4 [facility] Absolute lymphocyte countOrd ered By: Sunil Mina on 11-26-2023 Lymphocytes Auto (Unsp spec) [#/Vol] 0.84 10*3/uL 0.83-4.51 [facility] Automated lymphocyte count a s percentage of total leukocytesOrdered By: Sunil Mina on 11-26-2023 Lymphocytes/100 WBC Auto (Unsp spec) 3.4 % 19-41 [facility] Base excessOrdered By: Robin Mina on 11-26-2023 Base excess Calc (BldV) [Moles/Vol] -22 mmol/L -1.0-3.5 [facility] Basophil percentageOrdered B y: Sunil Mina on 11-26-2023 Chloride [Moles/Vol] 111 mmol/L 98-107 [facility] Glucose [Mass/Vol] 228 mg/dL 74-106 [facility] Comment on above: Glucose result great er than or equal to 200 mg/dLsuggests DIABETES MELLITUS per A.D.A. criteria. Potassium [Moles/Vol] 3.7 mmol/L 3.5-5.1 [facility] Sodium [Moles/Vol] 139 mmol/L 136-145 [facility] Basophil percentage 0 SEEN /hpf 0-5 [facility] Basophils/100 WBC (Bld) 0.3 % 0-1 [facility] Bilirubin [Mass/Vol] 0.70 mg/dL 0.20-1.00 [facility] Comment on above: For patients on eltr ombopag therapy, use of Dimension [place] TBIL is not recommended. Eosinophils/100 WBC (Bld) 0.0 % 0-5 [facility] Hemoglobin (Bld) [Mass/Vol] 15.7 g/dL 12.0-15.0 [facility] Monocytes/100 WBC (Bld) 2.4 % 0-10 [facility] Neutrophils (Bld) [#/Vol] 22.5 10*3/uL 2.0-7.7 [facility] Neutrophils/100 WBC (Bld) 91.9 % 47-70 [facility] Protein [Mass/Vol] 8.6 g/dL 6.4-8.2 [facility] WBC (Bld) [#/Vol] 24.5 10*3/uL 4.4-11.0 [facility] Bilirubin Test strip Ql (U)O rdered By: Sunil Mina on 11-26-2023 Bilirubin Ql (U) Negative Negative [facility] Blood manual differential co mment interpretation (narrative result)Ordered By: Sunil Mina on 11-26-2023 Manual differential comment Heath (Bld) [Interp] SCANNED [facility] Comment on above: NEUTROPHILLIA PRESEN T CO2 (BldV) [Moles/Vol]Ordere d By: Sunil Mina on 11-26-2023 CO2 [Moles/Vol] 8 mmol/L 23-33 [facility] Determination of erythrocyte mean corpuscular volume (MCV)Ordered By: Sunil Mina on 11-26-2023 MCV (RBC) [Entitic vol] 86.7 fL 81-99 [facility] Direct bilirubinOrdered By: Sunil Mina on 11-26-2023 Bilirubin.direct [Mass/Vol] 0.17 mg/dL 0.00-0.30 [facility] Erythrocyte distribution wid th ratioOrdered By: Sunil Mina on 11-26-2023 Erythrocyte distribution width (RBC) [Ratio] 13.1 % 11.6-14.6 [facility] Erythrocyte distribution wid th standard deviationOrdered By: Sunil Mina on 11-26-2023 Erythrocyte distribution width (RBC) [Entitic vol] 41.1 fL 35.1-43.9 [facility] Hematocrit Auto (Bld) [Volum e fraction]Ordered By: Sunil Mina on 11-26-2023 Hematocrit (Bld) [Volume fraction] 48.7 % 37-47 [facility] Immature granulocytes/100 WB C Auto (Bld)Ordered By: Sunil Mina on 11-26-2023 Immature granulocytes/100 WBC (Bld) 2.000 % 0.0-0.9 [facility] Comment on above: IG% - Immature Granu locytes (promyelocytes, myelocytes and metamyelocytes) > 1% indicates that a LEFT SHIFT is Present. Ketones Test strip Ql (U)Ord ered By: Sunil Mina on 11-26-2023 Ketones Ql (U) 150 mg/dl Negative [facility] Comment on above: CRITICAL VALUE *HCRI TICAL VALUE VERIFIED. CALLED TO [id number]/08/24 0131 Jonnathan García.RESULTS READ BACK BY same. Laboratory - Chemistry and C hemistry - challengeOrdered By: Jackeline Aguilar on 11-26-2023 HCG ( test) Ql (U) Negative [facility] Comment on above: Very dilute urine sp ecimens, as indicated by a low specificgravity, may not contain personal banking representative levels of hCG. If is still suspected, a first morning urinespecimen should be collected 48 hours later and tested. Magnesium [Mass/Vol] 1.9 mg/dL 1.6-2.6 [facility] Laboratory - Chemistry and C hemistry - challengeOrdered By: Sunil Mina on 11-26-2023 CO2 [Moles/Vol] 11.0 mmol/L 21.0-32.0 [facility] Urea nitrogen/Creatinine [Mass ratio] 19.0 mg/mg 10-20 [facility] HCG ( test) Ql (U) Negative [facility] Comment on above: Very dilute urine sp ecimens, as indicated by a low specificgravity, may not contain personal banking representative levels of hCG. If is still suspected, a first morning urinespecimen should be collected 48 hours later and tested. HCO3 (Bld) [Moles/Vol] 7 mmol/L 22-26 [facility] ALP [Catalytic activity/Vol] 116 U/L 45-117 [facility] ALT [Catalytic activity/Vol] 18 U/L 13-56 [facility] Globulin (S) [Mass/Vol] 3.8 g/dL 2.2-4.2 [facility] Lipase [Catalytic activity/Vol] 13 U/L 13-75 [facility] Comment on above: Please note:LIPASE r evised reference range effective 22. New Lipase methodology. Expected to produce lower values than the previous assay method. NEW Reference Range: 13 - 75 U/L Laboratory - Hematology and Cell countsOrdered By: Sunil Mina on 11-26-2023 MCH (RBC) [Entitic mass] 27.9 pg 27.0-32.0 [facility] MCHC (RBC) [Mass/Vol] 32.2 g/dL 32-36 [facility] Nucleated RBC/100 WBC (Bld) [Ratio] 0 % 0-5 [facility] Platelet mean volume (Bld) [Entitic vol] 9.4 fL 6.2-12.0 [facility] Platelets (Bld) [#/Vol] 444 10*3/uL 150-450 [facility] Mucus LM Ql (Urine sed)Order ed By: Sunil Mina on 11-26-2023 Mucus Ql (Urine sed) 0 SEEN /hpf [facility] Nitrite Test strip Ql (U)Ord ered By: Sunil Mina on 11-26-2023 Nitrite Ql (U) Negative Negative [facility] No Panel InformationOrdered By: Sunil Mina on 11-26-2023 Estimated Creatinine Clearance Calc 69.32 ml/min [facility] Estimated GFR (MDRD) Amer 82 mL/min >60 [facility] Comment on above: GFR Calc Estimated GFR (MDRD) Non-Af Amer 68 mL/min >60 [facility] Comment on above: Non- GFR Calc Urine RBC 0 SEEN /hpf 0-5 [facility] Bld Gas Crit Called To/Read Back By Yes [facility] Blood Gas Notified Time 01:02:40 [facility] Blood Gas Notified Whom Dr. Mina [facility] Blood Gas Sample Site Not entered [facility] Blood Gas Specimen Type LUIS [facility] Oxygen Delivery Device Room Air [facility] Atypical Lymphocytes 1+ % [facility] PCO2 venousOrdered By: Robin Mina on 11-26-2023 CO2 (BldV) [Partial pressure] 19.1 mm[Hg] 41-51 [facility] PO2 venousOrdered By: Sunil Mina on 11-26-2023 Oxygen (BldV) [Partial pressure] 102 mm[Hg] 25-40 [facility] Protein Test strip Ql (U)Ord ered By: Sunil Mina on 11-26-2023 Protein Ql (U) 100 mg/dl Negative [facility] RBC Auto (Bld) [#/Vol]Ordere d By: Sunil Mina on 11-26-2023 RBC (Bld) [#/Vol] 5.62 10*6/uL 4.2-5.4 [facility] Serum or plasma acetone edward urement (mass/volume)Ordered By: Sunil Mina on 11-26-2023 Acetone [Mass/Vol] MODERATE NEG [facility] Comment on above: CRITICAL VALUE VERIF IED. CALLED TO [id number]/08/24 0123 Jonnathan García.RESULTS READ BACK BY SAME. Serum or plasma calcium edward urement (mass/volume)Ordered By: Sunil Mina on 11-26-2023 Calcium [Mass/Vol] 9.4 mg/dL 8.5-10.1 [facility] Serum or plasma creatinine m easurement (mass/volume)Ordered By: Sunil Mina on 11-26-2023 Creatinine [Mass/Vol] 1.05 mg/dL 0.55-1.02 [facility] Comment on above: The validity of the calculated GFR & GFRAA in patients over 70 years has not been determined. Clinical correlation is essential. Serum or plasma urea nitroge n measurement (mass/volume)Ordered By: Sunil Mina on 11-26-2023 Urea nitrogen [Mass/Vol] 20 mg/dL 7-18 [facility] Squamous epithelial cells de tection in urine sediment by light microscopyOrdered By: Sunil Mina on 11-26-2023 Epithelial cells.squamous LM Ql (Urine sed) 0 SEEN /hpf 5-10 [facility] Streptococcus pyogenes rRNA detection in throat by DNA probeOrdered By: Sunil Mina on 11-26-2023 S. pyogenes rRNA Probe Ql (Throat) [facility] Thin prep Papanicolaou smear with manual screeningOrdered By: Sunil Mina on 11-26-2023 Thin prep Papanicolaou smear with manual screening 187 mg/dL 74-106 [facility] Comment on above: MANAGEMENT OF PATIEN T CARE PER NURSING PROTOCOL Thin prep Papanicolaou smear with manual screening 17 5-15 [facility] Thin prep Papanicolaou smear with manual screening 4.8 g/dL 3.2-5.0 [facility] Thin prep Papanicolaou smear with manual screening 17 U/L 15-37 [facility] Urine blood detectionOrdered By: Sunil Mina on 11-26-2023 RBC Ql (U) 10 /ul Negative [facility] Urine clarityOrdered By: Kodi Mina on 11-26-2023 Clarity (U) Clear Clear [facility] Urine color determinationOrd ered By: Sunil Mina on 11-26-2023 Color (U) Yellow Yellow [facility] Urine glucose detectionOrder ed By: Sunil Mina on 11-26-2023 Glucose Ql (U) 1000 mg/dl Normal [facility] Urine leukocyte esterase det ection by dipstickOrdered By: Sunil Mnia on 11-26-2023 Leukocyte esterase Test strip Ql (U) Negative Negative [facility] Urine pHOrdered By: Sunil thomas on 11-26-2023 pH (U) 5.0 [pH] 5.0 - 8.0 [facility] Urine sediment bacteria coun t by microscopy (number/high power field)Ordered By: Sunil Mina on 11-26-2023 Bacteria LM.HPF (Urine sed) [#/Area] 0 /[HPF] None Seen [facility] Urine specific gravity measu rementOrdered By: Sunil Mina on 11-26-2023 Specific gravity (U) [Rel density] 1.025 1.002-1.030 [facility] Urine urobilinogen measureme ntOrdered By: Sunil Mina on 11-26-2023 Urobilinogen Ql (U) Normal mg/dl Normal [facility] Venous blood pH measurementO rdered By: Sunil Mina on 11-26-2023 pH (BldV) 7.17 [pH] 7.32-7.42 [facility] Vital signsOrdered By: Robin Mina on 11-26-2023 Oxygen saturation in Blood 96 % 50-70 [facility] Whole blood hemoglobin A1c/t otal hemoglobin ratio (mass fraction)Ordered By: Jackeline Aguilar on 11-26-2023 HbA1c (Bld) [Mass fraction] 10.5 % 3.8-5.6 [facility] Comment on above: Normal < 5.7 % Predi abetic 5.7 - 6.4 % Diabetic >or= 6.5 % Please note range changes. Absolute lymphocyte countOrd ered By: Nathan Pineda on 10-17-2023 Lymphocytes Auto (Unsp spec) [#/Vol] 1.46 10*3/uL 0.83-4.51 [facility] Automated lymphocyte count a s percentage of total leukocytesOrdered By: Nathan Pineda on 10-17-2023 Lymphocytes/100 WBC Auto (Unsp spec) 10.9 % 19-41 [facility] Basophil percentageOrdered B y: Nathan Pineda on 10-17-2023 Basophils/100 WBC (Bld) 0.1 % 0-1 [facility] Eosinophils/100 WBC (Bld) 0.0 % 0-5 [facility] Hemoglobin (Bld) [Mass/Vol] 12.7 g/dL 12.0-15.0 [facility] Monocytes/100 WBC (Bld) 5.0 % 0-10 [facility] Neutrophils (Bld) [#/Vol] 11.3 10*3/uL 2.0-7.7 [facility] Neutrophils/100 WBC (Bld) 83.6 % 47-70 [facility] WBC (Bld) [#/Vol] 13.5 10*3/uL 4.4-11.0 [facility] Basophil percentageOrdered B y: Damien Villagran on 10-17-2023 Chloride [Moles/Vol] 114 mmol/L 98-107 [facility] Glucose [Mass/Vol] 144 mg/dL 74-106 [facility] Comment on above: Fasting Glucose resu lt greater than or equal to 126 mg/dL suggests DIABETES MELLITUS per A.D.A. criteria. Potassium [Moles/Vol] 3.1 mmol/L 3.5-5.1 [facility] Sodium [Moles/Vol] 141 mmol/L 136-145 [facility] Determination of erythrocyte mean corpuscular volume (MCV)Ordered By: Nathan Pineda on 10-17-2023 MCV (RBC) [Entitic vol] 83.8 fL 81-99 [facility] Erythrocyte distribution wid th ratioOrdered By: Nathan Pineda on 10-17-2023 Erythrocyte distribution width (RBC) [Ratio] 13.4 % 11.6-14.6 [facility] Erythrocyte distribution wid th standard deviationOrdered By: Nathan Pineda on 10-17-2023 Erythrocyte distribution width (RBC) [Entitic vol] 40.5 fL 35.1-43.9 [facility] Hematocrit Auto (Bld) [Volum e fraction]Ordered By: Nathan Pineda on 10-17-2023 Hematocrit (Bld) [Volume fraction] 39.2 % 37-47 [facility] Immature granulocytes/100 WB C Auto (Bld)Ordered By: Nathan Pineda on 10-17-2023 Immature granulocytes/100 WBC (Bld) 0.400 % 0.0-0.9 [facility] Comment on above: IG% - Immature Granu locytes (promyelocytes, myelocytes and metamyelocytes) > 1% indicates that a LEFT SHIFT is Present. Laboratory - Chemistry and C hemistry - challengeOrdered By: Damien Villagran on 10-17-2023 CO2 [Moles/Vol] 20.0 mmol/L 21.0-32.0 [facility] Urea nitrogen/Creatinine [Mass ratio] 18.9 mg/mg 10-20 [facility] Laboratory - Hematology and Cell countsOrdered By: Nathan Pineda on 10-17-2023 MCH (RBC) [Entitic mass] 27.1 pg 27.0-32.0 [facility] MCHC (RBC) [Mass/Vol] 32.4 g/dL 32-36 [facility] Nucleated RBC/100 WBC (Bld) [Ratio] 0 % 0-5 [facility] Platelet mean volume (Bld) [Entitic vol] 8.8 fL 6.2-12.0 [facility] Platelets (Bld) [#/Vol] 388 10*3/uL 150-450 [facility] No Panel InformationOrdered By: Damien Villagran on 10-17-2023 Estimated Creatinine Clearance Calc 96.69 ml/min [facility] Estimated GFR (MDRD) Amer 122 mL/min >60 [facility] Comment on above: GFR Calc Estimated GFR (MDRD) Non-Af Amer 101 mL/min >60 [facility] Comment on above: Non- GFR Calc RBC Auto (Bld) [#/Vol]Ordere d By: Nathan Pineda on 10-17-2023 RBC (Bld) [#/Vol] 4.68 10*6/uL 4.2-5.4 [facility] Serum or plasma calcium edward urement (mass/volume)Ordered By: Damien Villagran on 10-17-2023 Calcium [Mass/Vol] 8.7 mg/dL 8.5-10.1 [facility] Serum or plasma creatinine m easurement (mass/volume)Ordered By: Damien Villagran on 10-17-2023 Creatinine [Mass/Vol] 0.74 mg/dL 0.55-1.02 [facility] Comment on above: The validity of the calculated GFR & GFRAA in patients over 70 years has not been determined. Clinical correlation is essential. Serum or plasma urea nitroge n measurement (mass/volume)Ordered By: Damien Villagran on 10-17-2023 Urea nitrogen [Mass/Vol] 14 mg/dL 7-18 [facility] Thin prep Papanicolaou smear with manual screeningOrdered By: Nathan Pineda on 10-17-2023 Thin prep Papanicolaou smear with manual screening 254 mg/dL 74-106 [facility] Comment on above: MANAGEMENT OF PATIEN T CARE PER NURSING PROTOCOL Thin prep Papanicolaou smear with manual screeningOrdered By: Damien Villagran on 10-17-2023 Thin prep Papanicolaou smear with manual screening 7 5-15 [facility] Absolute lymphocyte countOrd ered By: Kassy Rosales on 10-16-2023 Lymphocytes Auto (Unsp spec) [#/Vol] 0.63 10*3/uL 0.83-4.51 [facility] Automated lymphocyte count a s percentage of total leukocytesOrdered By: Kassy Rosales on 10-16-2023 Lymphocytes/100 WBC Auto (Unsp spec) 3.7 % 19-41 [facility] Basophil percentageOrdered B y: Kassy Rosales on 10-16-2023 Chloride [Moles/Vol] 111 mmol/L 98-107 [facility] Glucose [Mass/Vol] 310 mg/dL 74-106 [facility] Comment on above: Glucose result great er than or equal to 200 mg/dLsuggests DIABETES MELLITUS per A.D.A. criteria. Potassium [Moles/Vol] 3.3 mmol/L 3.5-5.1 [facility] Sodium [Moles/Vol] 142 mmol/L 136-145 [facility] Basophil percentage 0 SEEN /hpf 0-5 [facility] Basophils/100 WBC (Bld) 0.4 % 0-1 [facility] Eosinophils/100 WBC (Bld) 0.0 % 0-5 [facility] Hemoglobin (Bld) [Mass/Vol] 16.4 g/dL 12.0-15.0 [facility] Monocytes/100 WBC (Bld) 2.1 % 0-10 [facility] Neutrophils (Bld) [#/Vol] 15.8 10*3/uL 2.0-7.7 [facility] Neutrophils/100 WBC (Bld) 93.3 % 47-70 [facility] WBC (Bld) [#/Vol] 16.9 10*3/uL 4.4-11.0 [facility] Bilirubin Test strip Ql (U)O rdered By: Kassy Rosales on 10-16-2023 Bilirubin Ql (U) Negative Negative [facility] Determination of erythrocyte mean corpuscular volume (MCV)Ordered By: Remus Rosales on 10-16-2023 MCV (RBC) [Entitic vol] 85.9 fL 81-99 [facility] Erythrocyte distribution wid th ratioOrdered By: [facility] on 10-16-2023 Erythrocyte distribution width (RBC) [Ratio] 13.0 % 11.6-14.6 [facility] Erythrocyte distribution wid th standard deviationOrdered By: [facility] on 10-16-2023 Erythrocyte distribution width (RBC) [Entitic vol] 40.3 fL 35.1-43.9 [facility] Hematocrit Auto (Bld) [Volum e fraction]Ordered By: [facility] on 10-16-2023 Hematocrit (Bld) [Volume fraction] 50.4 % 37-47 [facility] Immature granulocytes/100 WB C Auto (Bld)Ordered By: [facility] on 10-16-2023 Immature granulocytes/100 WBC (Bld) 0.500 % 0.0-0.9 [facility] Comment on above: IG% - Immature Granu locytes (promyelocytes, myelocytes and metamyelocytes) > 1% indicates that a LEFT SHIFT is Present. Ketones Test strip Ql (U)Ord ered By: [facility] on 10-16-2023 Ketones Ql (U) 150 mg/dl Negative [facility] Comment on above: CRITICAL VALUE *HRES ULTS CALLED TO [facility] 10/16/23 1742 Agatha Quijano.REPORT READ BACK BY SAME. Laboratory - Chemistry and C hemistry - challengeOrdered By: [facility] Ros[facility] on 10-16-2023 CO2 [Moles/Vol] 12.0 mmol/L 21.0-32.0 [facility] Urea nitrogen/Creatinine [Mass ratio] 20.8 mg/mg 10-20 [facility] Magnesium [Mass/Vol] 2.2 mg/dL 1.6-2.6 [facility] [facility] - Hematology and Cell countsOrdered By: Trihealthus Rosales on 10-16-2023 MCH (RBC) [Entitic mass] 27.9 pg 27.0-32.0 [facility] MCHC (RBC) [Mass/Vol] 32.5 g/dL 32-36 [facility] Nucleated RBC/100 WBC (Bld) [Ratio] 0 % 0-5 [facility] Platelet mean volume (Bld) [Entitic vol] 9.1 fL 6.2-12.0 [facility] Platelets (Bld) [#/Vol] 455 10*3/uL 150-450 [facility] Mucus LM Ql (Urine sed)Order ed By: Kassy Rosales on 10-16-2023 Mucus Ql (Urine sed) 0 SEEN /hpf [facility] Nitrite Test strip Ql (U)Ord ered By: Kassy Rosales on 10-16-2023 Nitrite Ql (U) Negative Negative [facility] No Panel InformationOrdered By: Kassy Rosales on 10-16-2023 Estimated Creatinine Clearance Calc 87.17 ml/min [facility] Estimated GFR (MDRD) Amer 102 mL/min >60 [facility] Comment on above: GFR Calc Estimated GFR (MDRD) Non-Af Amer 85 mL/min >60 [facility] Comment on above: Non- GFR Calc Urine RBC 0 SEEN /hpf 0-5 [facility] Protein Test strip Ql (U)Ord ered By: Kassy Rosales on 10-16-2023 Protein Ql (U) 100 mg/dl Negative [facility] RBC Auto (Bld) [#/Vol]Ordere d By: Kassy Rosales on 10-16-2023 RBC (Bld) [#/Vol] 5.87 10*6/uL 4.2-5.4 [facility] Serum or plasma acetone edward urement (mass/volume)Ordered By: Kassy Rosales on 10-16-2023 Acetone [Mass/Vol] MODERATE NEG [facility] Serum or plasma calcium edward urement (mass/volume)Ordered By: Kassy Rosales on 10-16-2023 Calcium [Mass/Vol] 8.3 mg/dL 8.5-10.1 [facility] Serum or plasma choriogonado tropin detectionOrdered By: Kassy Rosales on 10-16-2023 HCG ( test) Ql Negative [facility] Serum or plasma creatinine m easurement (mass/volume)Ordered By: Kassy Rosales on 10-16-2023 Creatinine [Mass/Vol] 0.86 mg/dL 0.55-1.02 [facility] Comment on above: The validity of the calculated GFR & GFRAA in patients over 70 years has not been determined. Clinical correlation is essential. Serum or plasma urea nitroge n measurement (mass/volume)Ordered By: Kassy Rosales on 10-16-2023 Urea nitrogen [Mass/Vol] 18 mg/dL 7-18 [facility] Squamous epithelial cells de tection in urine sediment by light microscopyOrdered By: Kassy Rosales on 10-16-2023 Epithelial cells.squamous LM Ql (Urine sed) 0-5 SEEN /hpf 5-10 [facility] Thin prep Papanicolaou smear with manual screeningOrdered By: Damien Villagran on 10-16-2023 Thin prep Papanicolaou smear with manual screening 297 mg/dL 74-106 [facility] Comment on above: MANAGEMENT OF PATIEN T CARE PER NURSING PROTOCOL Thin prep Papanicolaou smear with manual screeningOrdered By: Kassy Rosales on 10-16-2023 Thin prep Papanicolaou smear with manual screening 19 5-15 [facility] Urine blood detectionOrdered By: Kassy Rosales on 10-16-2023 RBC Ql (U) 10 /ul Negative [facility] Urine clarityOrdered By: Alisha Rosales on 10-16-2023 Clarity (U) Clear Clear [facility] Urine color determinationOrd ered By: Kassy Rosales on 10-16-2023 Color (U) Yellow Yellow [facility] Urine glucose detectionOrder ed By: Kassy Rosales on 10-16-2023 Glucose Ql (U) 1000 mg/dl Normal [facility] Urine leukocyte esterase det ection by dipstickOrdered By: Kassy Rosales on 10-16-2023 Leukocyte esterase Test strip Ql (U) Negative Negative [facility] Urine pHOrdered By: Kassy Duncan gur on 10-16-2023 pH (U) 5.0 [pH] 5.0 - 8.0 [facility] Urine sediment bacteria coun t by microscopy (number/high power field)Ordered By: Kassy Rosales on 10-16-2023 Bacteria LM.HPF (Urine sed) [#/Area] 0 /[HPF] None Seen [facility] Urine specific gravity measu rementOrdered By: Kassy Rosales on 10-16-2023 Specific gravity (U) [Rel density] 1.025 1.002-1.030 [facility] Urine urobilinogen measureme ntOrdered By: Kassy Barajasadrian on 10-16-2023 Urobilinogen Ql (U) Normal mg/dl Normal [facility] Whole blood hemoglobin A1c/t otal hemoglobin ratio (mass fraction)Ordered By: Damien Villagran on 10-16-2023 HbA1c (Bld) [Mass fraction] 10.7 % 3.8-5.6 [facility] Comment on above: Normal < 5.7 % Predi abetic 5.7 - 6.4 % Diabetic >or= 6.5 % Please note range changes. Absolute lymphocyte countOrd ered By: Franky Najera on 08-23-2023 Lymphocytes Auto (Unsp spec) [#/Vol] 0.59 10*3/uL 0.83-4.51 [facility] Automated lymphocyte count a s percentage of total leukocytesOrdered By: Franky Najera on 08-23-2023 Lymphocytes/100 WBC Auto (Unsp spec) 16.8 % 19-41 [facility] Base excessOrdered By: Jorden Najera on 08-23-2023 Base excess Calc (BldV) [Moles/Vol] 0 mmol/L -1.0-3.5 [facility] Basophil percentageOrdered B y: Franky Najera on 08-23-2023 Basophil percentage 0 SEEN /hpf 0-5 [facility] Basophils/100 WBC (Bld) 0.9 % 0-1 [facility] Bilirubin [Mass/Vol] 0.60 mg/dL 0.20-1.00 [facility] Comment on above: For patients on eltr ombopag therapy, use of Dimension [place] TBIL is not recommended. Chloride [Moles/Vol] 109 mmol/L 98-107 [facility] Eosinophils/100 WBC (Bld) 0.0 % 0-5 [facility] Glucose [Mass/Vol] 159 mg/dL 74-106 [facility] Comment on above: Fasting Glucose resu lt greater than or equal to 126 mg/dL suggests DIABETES MELLITUS per A.D.A. criteria. Hemoglobin (Bld) [Mass/Vol] 13.0 g/dL 12.0-15.0 [facility] Monocytes/100 WBC (Bld) 11.4 % 0-10 [facility] Neutrophils (Bld) [#/Vol] 2.5 10*3/uL 2.0-7.7 [facility] Neutrophils/100 WBC (Bld) 70.6 % 47-70 [facility] Potassium [Moles/Vol] 3.6 mmol/L 3.5-5.1 [facility] Protein [Mass/Vol] 7.4 g/dL 6.4-8.2 [facility] Sodium [Moles/Vol] 139 mmol/L 136-145 [facility] WBC (Bld) [#/Vol] 3.5 10*3/uL 4.4-11.0 [facility] Bilirubin Test strip Ql (U)O rdered By: Franky Najera on 08-23-2023 Bilirubin Ql (U) Negative Negative [facility] CO2 (BldV) [Moles/Vol]Ordere d By: Franky Najera on 08-23-2023 CO2 [Moles/Vol] 24 mmol/L 23-33 [facility] Determination of erythrocyte mean corpuscular volume (MCV)Ordered By: Franky Najera on 08-23-2023 MCV (RBC) [Entitic vol] 85.1 fL 81-99 [facility] Erythrocyte distribution wid th ratioOrdered By: Franky Najera on 08-23-2023 Erythrocyte distribution width (RBC) [Ratio] 13.3 % 11.6-14.6 [facility] Erythrocyte distribution wid th standard deviationOrdered By: Franky Najera on 08-23-2023 Erythrocyte distribution width (RBC) [Entitic vol] 41.6 fL 35.1-43.9 [facility] Hematocrit Auto (Bld) [Volum e fraction]Ordered By: Franky Najera on 08-23-2023 Hematocrit (Bld) [Volume fraction] 40.6 % 37-47 [facility] Immature granulocytes/100 WB C Auto (Bld)Ordered By: Franky Najera on 08-23-2023 Immature granulocytes/100 WBC (Bld) 0.300 % 0.0-0.9 [facility] Comment on above: IG% - Immature Granu locytes (promyelocytes, myelocytes and metamyelocytes) > 1% indicates that a LEFT SHIFT is Present. Ketones Test strip Ql (U)Ord ered By: Franky Najera on 08-23-2023 Ketones Ql (U) 15 mg/dl Negative [facility] Laboratory - Chemistry and C hemistry - challengeOrdered By: Franky Najera on 08-23-2023 HCG ( test) Ql (U) Negative [facility] Comment on above: Very dilute urine sp ecimens, as indicated by a low specificgravity, may not contain personal banking representative levels of hCG. If is still suspected, a first morning urinespecimen should be collected 48 hours later and tested. Albumin/Globulin [Mass ratio] 0.9 {ratio} 0.9-2.4 [facility] ALP [Catalytic activity/Vol] 74 U/L 45-117 [facility] ALT [Catalytic activity/Vol] 19 U/L 13-56 [facility] CO2 [Moles/Vol] 23.0 mmol/L 21.0-32.0 [facility] Globulin (S) [Mass/Vol] 3.8 g/dL 2.2-4.2 [facility] Lipase [Catalytic activity/Vol] 11 U/L 13-75 [facility] Comment on above: Please note:LIPASE r evised reference range effective 22. New Lipase methodology. Expected to produce lower values than the previous assay method. NEW Reference Range: 13 - 75 U/L Urea nitrogen/Creatinine [Mass ratio] 20.0 mg/mg 10-20 [facility] Laboratory - Hematology and Cell countsOrdered By: Franky Najera on 08-23-2023 MCH (RBC) [Entitic mass] 27.3 pg 27.0-32.0 [facility] MCHC (RBC) [Mass/Vol] 32.0 g/dL 32-36 [facility] Nucleated RBC/100 WBC (Bld) [Ratio] 0 % 0-5 [facility] Platelets (Bld) [#/Vol] 312 10*3/uL 150-450 [facility] - Microbiology an d Antimicrobial susceptibilityOrdered By: Franky Najera on 08-23-2023 SARS-CoV-2 (COVID-19) RNA JEANNETTE+probe Ql (Unsp spec) Influenzae A [facility] Mucus LM Ql (Urine sed)Order ed By: Franky Najera on 08-23-2023 Mucus Ql (Urine sed) 0 SEEN /hpf [facility] Nitrite Test strip Ql (U)Ord ered By: Franky Najera on 08-23-2023 Nitrite Ql (U) Negative Negative [facility] No Panel InformationOrdered By: Franky Najera on 08-23-2023 Urine RBC 0 SEEN /hpf 0-5 [facility] Blood Gas Sample Site Not entered [facility] Blood Gas Specimen Type LUIS [facility] Oxygen Delivery Device Not entered [facility] Estimated Creatinine Clearance Calc 115.76 ml/min [facility] Estimated GFR (MDRD) Amer 143 mL/min >60 [facility] Comment on above: GFR Calc Estimated GFR (MDRD) Non-Af Amer 118 mL/min >60 [facility] Comment on above: Non- GFR Calc Troponin I High Sensitivity 3 pg/mL 3.0-54.0 [facility] Comment on above: Please Note: New [place] t Units and Gender Specific Reference Ranges. For more information see Policy Stat Procedure [place] High Sensitivity Troponin (TNIH) and attachments. PCO2 venousOrdered By: Jorden Najera on 08-23-2023 CO2 (BldV) [Partial pressure] 28.3 mm[Hg] 41-51 [facility] PO2 venousOrdered By: Franky Najera on 08-23-2023 Oxygen (BldV) [Partial pressure] 64 mm[Hg] 25-40 [facility] Platelet mean volume Khadar-Ec ker (Bld) [Entitic vol]Ordered By: Franky Najera on 08-23-2023 Platelet mean volume (Bld) [Entitic vol] 8.4 fL 6.2-12.0 [facility] Protein Test strip Ql (U)Ord ered By: Franky Najera on 08-23-2023 Protein Ql (U) 30 mg/dl Negative [facility] RBC Auto (Bld) [#/Vol]Ordere d By: Franky Najera on 08-23-2023 RBC (Bld) [#/Vol] 4.77 10*6/uL 4.2-5.4 [facility] Serum or plasma acetone edward urement (mass/volume)Ordered By: Franky Najera on 08-23-2023 Acetone [Mass/Vol] SMALL NEG [facility] Serum or plasma calcium edward urement (mass/volume)Ordered By: Franky Najera on 08-23-2023 Calcium [Mass/Vol] 8.8 mg/dL 8.5-10.1 [facility] Serum or plasma creatinine m easurement (mass/volume)Ordered By: Franky Najera on 08-23-2023 Creatinine [Mass/Vol] 0.65 mg/dL 0.55-1.02 [facility] Comment on above: The validity of the calculated GFR & GFRAA in patients over 70 years has not been determined. Clinical correlation is essential. Serum or plasma urea nitroge n measurement (mass/volume)Ordered By: Franky Najera on 08-23-2023 Urea nitrogen [Mass/Vol] 13 mg/dL 7-18 [facility] Squamous epithelial cells de tection in urine sediment by light microscopyOrdered By: Franky Najera on 08-23-2023 Epithelial cells.squamous LM Ql (Urine sed) 0 SEEN /hpf 5-10 [facility] Thin prep Papanicolaou smear with manual screeningOrdered By: Franky Najera on 08-23-2023 Thin prep Papanicolaou smear with manual screening 3.6 g/dL 3.2-5.0 [facility] Thin prep Papanicolaou smear with manual screening 17 U/L 15-37 [facility] Thin prep Papanicolaou smear with manual screening 7 5-15 [facility] Urine blood detectionOrdered By: Franky Najera on 08-23-2023 RBC Ql (U) Negative Negative [facility] Urine clarityOrdered By: Katie Najera on 08-23-2023 Clarity (U) Clear Clear [facility] Urine color determinationOrd ered By: Franky Najera on 08-23-2023 Color (U) Yellow Yellow [facility] Urine glucose detectionOrder ed By: Franky Najera on 08-23-2023 Glucose Ql (U) Normal mg/dl Normal [facility] Urine leukocyte esterase det ection by dipstickOrdered By: Franky Najera on 08-23-2023 Leukocyte esterase Test strip Ql (U) Negative Negative [facility] Urine pHOrdered By: Franky pierson on 08-23-2023 pH (U) 6.0 [pH] 5.0 - 8.0 [facility] Urine sediment bacteria coun t by microscopy (number/high power field)Ordered By: Franky Najera on 08-23-2023 Bacteria LM.HPF (Urine sed) [#/Area] 0 /[HPF] None Seen [facility] Urine specific gravity measu rementOrdered By: Franky Najera on 08-23-2023 Specific gravity (U) [Rel density] 1.015 1.002-1.030 [facility] Urine urobilinogen measureme ntOrdered By: Franky Najera on 08-23-2023 Urobilinogen Ql (U) Normal mg/dl Normal [facility] Venous blood oxygen saturati on (pure mass fraction)Ordered By: Franky Najera on 08-23-2023 SaO2% (BldV) [Pure mass fraction] 95 % 50-70 [facility] Venous blood pH measurementO rdered By: Franky Najera on 08-23-2023 pH (BldV) 7.52 [pH] 7.32-7.42 [facility] Venous cord blood bicarbonat e measurementOrdered By: Franky Najera on 08-23-2023 HCO3 (BldCoV) [Moles/Vol] 23 mmol/L 22- [facility] Basophil percentageOrdered B y: Indira Wang on 08-13-2023 Bilirubin [Mass/Vol] 0.50 mg/dL 0.20-1.00 [facility] Comment on above: For patients on eltr ombopag therapy, use of Dimension [place] TBIL is not recommended. Chloride [Moles/Vol] 105 mmol/L 98-107 [facility] Cholesterol [Mass/Vol] 201 mg/dL <200 [facility] Comment on above: <200 mg/dL Desirable 200-240 mg/dL Borderline >240 mg/dL High Risk Glucose [Mass/Vol] 273 mg/dL 74-106 [facility] Comment on above: Glucose result great er than or equal to 200 mg/dLsuggests DIABETES MELLITUS per A.D.A. criteria. Potassium [Moles/Vol] 4.3 mmol/L 3.5-5.1 [facility] Protein [Mass/Vol] 7.2 g/dL 6.4-8.2 [facility] Sodium [Moles/Vol] 136 mmol/L 136-145 [facility] Triglyceride [Mass/Vol] 70 mg/dL <199 [facility] Comment on above: The drugs N-Acetylcy steine and Metamizole may falsely depress this assay.Serum Triglycerides Reference Interval Normal <150 mg/dL Borderline high 150 - 199 mg/dL High 200 - 499 mg/dL Very High > or = 500 mg/dL High density lipoprotein (HD L) measurementOrdered By: Indira Wang on 08-13-2023 Cholesterol in HDL (Body fld) [Mass/Vol] 99 mg/dL >40 [facility] Comment on above: The drugs N-Acetylcy steine and Metamizole may falsely depress this assay. Reference Range HDL <40 mg/dL Low HDL Cholesterol HDL >or= 60 mg/dL High HDL Cholesterol Laboratory - Chemistry and C hemistry - challengeOrdered By: Indira Wang on 08-13-2023 Albumin/Globulin [Mass ratio] 1.0 {ratio} 0.9-2.4 [facility] ALP [Catalytic activity/Vol] 90 U/L 45-117 [facility] ALT [Catalytic activity/Vol] 16 U/L 13-56 [facility] CO2 [Moles/Vol] 23.0 mmol/L 21.0-32.0 [facility] Globulin (S) [Mass/Vol] 3.6 g/dL 2.2-4.2 [facility] Urea nitrogen/Creatinine [Mass ratio] 22.7 mg/mg 10-20 [facility] Laboratory - Hematology and Cell countson 08-13-2023 HbA1c (Bld) [Mass fraction] 11.0 % 4.2-6.3 [facility] Low density lipoprotein (LDL ) cholesterol measurementOrdered By: Indira Wang on 08-13-2023 Cholesterol in LDL (Body fld) [Moles/Vol] 88 mg/dL 0-130 [facility] No Panel InformationOrdered By: Indira Wang on 08-13-2023 Estimated GFR (MDRD) Amer 151 mL/min >60 [facility] Comment on above: GFR Calc Estimated GFR (MDRD) Non-Af Amer 125 mL/min >60 [facility] Comment on above: Non- GFR Calc Vitamin D 25-Hydroxy 25.2 ng/mL [facility] Comment on above: Vitamin D 25(OH) Sta tus Range Deficiency <20 ng/mL (50nmol/L) Insufficiency 20 - 30 ng/mL (50 - 75 nmol/L) Sufficiency 30 - 100 ng/mL (75 - 250 nmol/L) Toxicity >100 ng/mL (>250 nmol/L) Serum or plasma calcium edward urement (mass/volume)Ordered By: Indira Wang on 08-13-2023 Calcium [Mass/Vol] 9.1 mg/dL 8.5-10.1 [facility] Serum or plasma creatinine m easurement (mass/volume)Ordered By: Indira Wang on 08-13-2023 Creatinine [Mass/Vol] 0.62 mg/dL 0.55-1.02 [facility] Comment on above: The validity of the calculated GFR & GFRAA in patients over 70 years has not been determined. Clinical correlation is essential. Serum or plasma thyroid stim ulating hormone (TSH) measurement (units/volume)Ordered By: Indira Wang on 08-13-2023 TSH Qn 2.35 uIU/mL 0.358-3.74 [facility] Serum or plasma urea nitroge n measurement (mass/volume)Ordered By: Indira Wang on 08-13-2023 Urea nitrogen [Mass/Vol] 14 mg/dL 7-18 [facility] Thin prep Papanicolaou smear with manual screeningOrdered By: Indira Wang on 08-13-2023 Thin prep Papanicolaou smear with manual screening 3.6 g/dL 3.2-5.0 [facility] Thin prep Papanicolaou smear with manual screening 19 U/L 15-37 [facility] Thin prep Papanicolaou smear with manual screening 8 5-15 [facility] Thin prep Papanicolaou smear with manual screening < 5.0 mg/L NO RANGE EST. [facility] Urine albumin/creatinine rat io for detection of microalbuminuriaOrdered By: Indira Wang on 08-13-2023 Albumin/Creatinine DL <= 1.0 mg/L (24H U) [Ratio] [facility] Comment on above: Test not performed Urine creatinine measurement (mass/volume)Ordered By: Indira Wang on 08-13-2023 Creatinine (U) [Mass/Vol] 44.30 mg/dL NO RANGE EST. [facility] Very low density lipoprotein (VLDL) cholesterol measurementOrdered By: Indira Wang on 08-13-2023 Cholesterol in VLDL Calc [Moles/Vol] 14 mg/dL 5-40 [facility] Laboratory - Hematology and Cell countson 05-12-2023 HbA1c (Bld) [Mass fraction] 11.2 % 4.2-6.3 [facility] STREP A MOLECULAR (POC)on Procedural Control Valid [facility] Strep A (POCT) Negative Negative [facility] Basophil percentageOrdered B y: Diego Haas on 03-05-2023 Basophil percentage 181 mg/dL 74-106 [facility] Basophil percentage 136 mmol/L 136-145 [facility] Basophil percentage 3.2 mmol/L 3.5-5.1 [facility] Basophil percentage 100 mmol/L 98-107 [facility] Glucose Glucometer (BldC) [M ass/Vol]Ordered By: Diego Haas on 03-05-2023 Glucose [Mass/Vol] 186 mg/dL 74-106 [facility] No Panel InformationOrdered By: Diego Haas on 03-05-2023 243 mL/min >60 [facility] 294 mL/min >60 [facility] 223.81 ml/min [facility] 26.0 mmol/L 21.0-32.0 [facility] Serum or plasma calcium edward urement (mass/volume)Ordered By: Diego Haas on 03-05-2023 Calcium [Mass/Vol] 8.4 mg/dL 8.5-10.1 [facility] Serum or plasma creatinine m easurement (mass/volume)Ordered By: Diego Haas on 03-05-2023 Creatinine [Mass/Vol] 0.35 mg/dL 0.55-1.02 [facility] Serum or plasma urea nitroge n measurement (mass/volume)Ordered By: Diego Haas on 03-05-2023 Urea nitrogen [Mass/Vol] mg/dL 7-18 [facility] Thin prep Papanicolaou smear with manual screeningOrdered By: Diego Haas on 03-05-2023 Thin prep Papanicolaou smear with manual screening 10 5-15 [facility] Absolute lymphocyte countOrd ered By: Uziel Mahmood on 03-04-2023 Lymphocytes Auto (Unsp spec) [#/Vol] 1.17 10*3/uL 0.83-4.51 [facility] Basophil percentageOrdered B y: Diego Haas on 03-04-2023 Basophil percentage 1.7 mg/dL 2.5-4.9 [facility] Basophil percentageOrdered B y: Uziel Mahmood on 03-04-2023 Basophils (Bld) [#/Vol] 5.7 10*3/uL 4.4-11.0 [facility] Basophils (Bld) [#/Vol] 4.0 10*3/uL 2.0-7.7 [facility] Basophils/100 WBC (Bld) 69.8 % 47-70 [facility] Basophils/100 WBC (Bld) 0.5 % 0-5 [facility] Basophils/100 WBC (Bld) 0.4 % 0-1 [facility] Blood erythrocytes count (nu mber/volume)Ordered By: Uziel Mahmood on 03-04-2023 RBC (Bld) [#/Vol] 3.92 10*6/uL 4.2-5.4 [facility] Blood hemoglobin measurement (mass/volume)Ordered By: Uziel Mahmood on 03-04-2023 Hemoglobin (Bld) [Mass/Vol] 10.9 g/dL 12.0-15.0 [facility] Blood lymphocytes/100 leukoc ytesOrdered By: Uziel Mahmood on 03-04-2023 Lymphocytes/100 WBC (Bld) 20.6 % 19-41 [facility] Blood monocytes/100 leukocyt esOrdered By: Uziel Mahmood on 03-04-2023 Monocytes/100 WBC (Bld) 8.3 % 0-10 [facility] Blood platelet mean volumeOr dered By: Uziel Mahmood on 03-04-2023 Platelet mean volume (Bld) [Entitic vol] 7.9 fL 6.2-12.0 [facility] Determination of erythrocyte mean corpuscular volume (MCV)Ordered By: Uziel Mahmood on 03-04-2023 MCV (RBC) [Entitic vol] 83.4 fL 81-99 [facility] Hematocrit Auto (Bld) [Volum e fraction]Ordered By: Uziel Mahmood on 03-04-2023 Hematocrit (Bld) [Volume fraction] 32.7 % 37-47 [facility] MCHC Auto (RBC) [Mass/Vol]Or dered By: Uziel Mahmood on 03-04-2023 MCHC (RBC) [Mass/Vol] 33.3 g/dL 32-36 [facility] No Panel InformationOrdered By: Diego Haas on 03-04-2023 1.7 mg/dL 1.6-2.6 [facility] No Panel InformationOrdered By: Uziel Mahmood on 03-04-2023 27.8 pg 27.0-32.0 [facility] 12.5 % 11.6-14.6 [facility] 37.9 fl 35.1-43.9 [facility] 0.400 % 0.0-0.9 [facility] 0 % 0-5 [facility] Platelets bldOrdered By: Grover Mahmood on 03-04-2023 Platelets (Bld) [#/Vol] 256 10*3/uL 150-450 [facility] Absolute lymphocyte countOrd ered By: Kaylen Morin on 03-03-2023 Lymphocytes Auto (Unsp spec) [#/Vol] 0.58 10*3/uL 0.83-4.51 [facility] Basophil percentageOrdered B y: Kaylen Morin on 03-03-2023 Basophil percentage 0 SEEN /hpf 0-5 [facility] Basophil percentage 294 mg/dL 74-106 [facility] Basophil percentage 7.0 g/dL 6.4-8.2 [facility] Basophil percentage 0.90 mg/dL 0.20-1.00 [facility] Basophil percentage 131 mmol/L 136-145 [facility] Basophil percentage 3.2 mmol/L 3.5-5.1 [facility] Basophil percentage 96 mmol/L 98-107 [facility] Basophils (Bld) [#/Vol] 9.2 10*3/uL 4.4-11.0 [facility] Basophils (Bld) [#/Vol] 8.1 10*3/uL 2.0-7.7 [facility] Basophils/100 WBC (Bld) 88.7 % 47-70 [facility] Basophils/100 WBC (Bld) 0.4 % 0-1 [facility] Beta hCG serum qualOrdered B y: Kaylen Morin on 03-03-2023 Beta HCG ( test) Ql Negative [facility] Bilirubin Test strip Ql (U)O rdered By: Kaylen Morin on 03-03-2023 Bilirubin Ql (U) Negative Negative [facility] Blood erythrocytes count (nu mber/volume)Ordered By: Kaylen Morin on 03-03-2023 RBC (Bld) [#/Vol] 4.69 10*6/uL 4.2-5.4 [facility] Blood hemoglobin measurement (mass/volume)Ordered By: Kaylen Morin on 03-03-2023 Hemoglobin (Bld) [Mass/Vol] 13.0 g/dL 12.0-15.0 [facility] Blood lymphocytes/100 leukoc ytesOrdered By: Kaylen Morin on 03-03-2023 Lymphocytes/100 WBC (Bld) 6.3 % 19-41 [facility] Blood monocytes/100 leukocyt esOrdered By: Kaylen Morin on 03-03-2023 Monocytes/100 WBC (Bld) 3.7 % 0-10 [facility] Blood platelet mean volumeOr dered By: Kaylen Morin on 03-03-2023 Platelet mean volume (Bld) [Entitic vol] 8.2 fL 6.2-12.0 [facility] Determination of erythrocyte mean corpuscular volume (MCV)Ordered By: Kaylen Morin on 03-03-2023 MCV (RBC) [Entitic vol] 84.0 fL 81-99 [facility] Direct bilirubinOrdered By: Kaylen Morin on 03-03-2023 Bilirubin.direct [Mass/Vol] 0.28 mg/dL 0.00-0.30 [facility] GLUCOSE, BLOOD (POC)on 03-03 Glucose [Mass/Vol] 282 mg/dL Abnormal 74 - 99 mg/dL [facility] Glucose Glucometer (BldC) [M ass/Vol]Ordered By: Kaylen Morin on 03-03-2023 Glucose [Mass/Vol] 246 mg/dL 74-106 [facility] Hematocrit Auto (Bld) [Volum e fraction]Ordered By: Kaylen Morin on 03-03-2023 Hematocrit (Bld) [Volume fraction] 39.4 % 37-47 [facility] Ketones Test strip Ql (U)Ord ered By: Kaylen Morin on 03-03-2023 Ketones Ql (U) 150 mg/dl Negative [facility] MCHC Auto (RBC) [Mass/Vol]Or dered By: Kaylen Morin on 03-03-2023 MCHC (RBC) [Mass/Vol] 33.0 g/dL 32-36 [facility] Mucus LM Ql (Urine sed)Order ed By: Kaylen Morin on 03-03-2023 Mucus Ql (Urine sed) 0 SEEN /hpf [facility] Nitrite Test strip Ql (U)Ord ered By: Kaylen Morin on 03-03-2023 Nitrite Ql (U) Negative Negative [facility] No Panel InformationOrdered By: Kaylen Morin on 03-03-2023 27.7 pg 27.0-32.0 [facility] 12.6 % 11.6-14.6 [facility] 37.7 fl 35.1-43.9 [facility] 0.500 % 0.0-0.9 [facility] 0 % 0-5 [facility] 125 mL/min >60 [facility] 151 mL/min >60 [facility] 107.35 ml/min [facility] 11.3 RATIO 10-20 [facility] 3.9 g/dL 2.2-4.2 [facility] 15 U/L 13-75 [facility] 91 U/L 45-117 [facility] 12 U/L 13-56 [facility] 17.0 mmol/L 21.0-32.0 [facility] Platelets bldOrdered By: Chani Morin on 03-03-2023 Platelets (Bld) [#/Vol] 294 10*3/uL 150-450 [facility] Protein Test strip Ql (U)Ord ered By: Kaylen Morin on 03-03-2023 Protein Ql (U) 15 mg/dl Negative [facility] Serum or plasma acetone edward urement (mass/volume)Ordered By: Kaylen Morin on 03-03-2023 Acetone [Mass/Vol] MODERATE NEG [facility] Serum or plasma albumin edward urement (mass/volume)Ordered By: Kaylen Morin on 03-03-2023 Albumin [Mass/Vol] 3.1 g/dL 3.2-5.0 [facility] Serum or plasma calcium edward urement (mass/volume)Ordered By: Kaylen Morin on 03-03-2023 Calcium [Mass/Vol] 8.9 mg/dL 8.5-10.1 [facility] Serum or plasma creatinine m easurement (mass/volume)Ordered By: Kaylen Morin on 03-03-2023 Creatinine [Mass/Vol] 0.62 mg/dL 0.55-1.02 [facility] Serum or plasma urea nitroge n measurement (mass/volume)Ordered By: Kaylen Morin on 03-03-2023 Urea nitrogen [Mass/Vol] 7 mg/dL 7-18 [facility] Squamous epithelial cells de tection in urine sediment by light microscopyOrdered By: Kaylen Morin on 03-03-2023 Epithelial cells.squamous LM Ql (Urine sed) 0 SEEN /hpf 5-10 [facility] Thin prep Papanicolaou smear with manual screeningOrdered By: Kaylen Morin on 03-03-2023 Thin prep Papanicolaou smear with manual screening 11 U/L 15-37 [facility] Thin prep Papanicolaou smear with manual screening 18 5-15 [facility] UA DIP, URINE (POC)on 2022 BILIRUBIN UA (POCT) Negative Negative [facility] CLARITY UA (POCT) Clear [facility] COLOR UA (POCT) Yellow [facility] GLUCOSE UA (POCT) 500 mg/dL Abnormal Negative mg/dL [facility] HEMOGLOBIN/BLOOD UA (POCT) Negative Negative [facility] KETONE UA (POCT) >=160 Abnormal Negative mg/dL [facility] LEUKOCYTES UA (POCT) Negative Negative [facility] NITRITE UA (POCT) Negative Negative [facility] PH UA (POCT) 6.0 4.5 - 8.0 [facility] Protein Ql (U) Negative Negative mg/dL [facility] SPECIFIC GRAVITY UA (POCT) 1.025 1.005 - 1.030 [facility] UROBILINOGEN UA (POCT) 0.2 E.U./dL Normal E.U./dL [facility] Urine blood detectionOrdered By: Kaylen Morin on 03-03-2023 RBC Ql (U) Negative Negative [facility] RBC Ql (U) 0 SEEN /hpf 0-5 [facility] Urine clarityOrdered By: Chani Morin on 03-03-2023 Clarity (U) Clear Clear [facility] Urine color determinationOrd ered By: Kaylen Morin on 03-03-2023 Color (U) Yellow Yellow [facility] Urine glucose detectionOrder ed By: Kaylen Morin on 03-03-2023 Glucose Ql (U) 1000 mg/dl Normal [facility] Urine leukocyte esterase det ection by dipstickOrdered By: Kaylen Morin on 03-03-2023 Leukocyte esterase Test strip Ql (U) Negative Negative [facility] Urine pHOrdered By: Kaylen Morin on 03-03-2023 pH (U) 5.0 [pH] 5.0 - 8.0 [facility] Urine sediment bacteria coun t by microscopy (number/high power field)Ordered By: Kaylen Morin on 03-03-2023 Bacteria LM.HPF (Urine sed) [#/Area] 0 /[HPF] None Seen [facility] Urine specific gravity measu rementOrdered By: Kaylen Morin on 03-03-2023 Specific gravity (U) [Rel density] 1.020 1.002-1.030 [facility] Urobilinogen Auto test strip Ql (U)Ordered By: Kaylen Morin on 03-03-2023 Urobilinogen Ql (U) Normal mg/dl Normal [facility] Basophil percentageOrdered B y: Sunil Mina on 03-02-2023 Basophil percentage 1.2 mmol/L 0.4-2.0 [facility] Glucose Glucometer (BldC) [M ass/Vol]Ordered By: Sunil Mina on 03-02-2023 Glucose [Mass/Vol] 290 mg/dL 74-106 [facility] HCO3 (BldA) [Moles/Vol]Order ed By: Sunil Mina on 03-02-2023 HCO3 (Bld) [Moles/Vol] 18 mmol/L 22-26 [facility] No Panel InformationOrdered By: Sunil Mina on 03-02-2023 LUIS [facility] 35.7 mmHg 41-51 [facility] -8 mmol/L -1.0-3.5 [facility] 81 % 50-70 [facility] 19 mmol/L 23-33 [facility] PO2 venousOrdered By: Sunil Mina on 03-02-2023 Oxygen (BldV) [Partial pressure] 49 mm[Hg] 25-40 [facility] pH measurementOrdered By: Naomie Mina on 03-02-2023 pH (Unsp spec) 7.32 [pH] 7.32-7.42 [facility] Absolute lymphocyte countOrd ered By: Sunil Mina on 03-01-2023 Lymphocytes Auto (Unsp spec) [#/Vol] 0.43 10*3/uL 0.83-4.51 [facility] Basophil percentageOrdered B y: Sunil Mina on 03-01-2023 Basophils (Bld) [#/Vol] 8.9 10*3/uL 4.4-11.0 [facility] Basophils (Bld) [#/Vol] 7.8 10*3/uL 2.0-7.7 [facility] Basophils/100 WBC (Bld) 88.4 % 47-70 [facility] Basophils/100 WBC (Bld) 0.0 % 0-5 [facility] Basophils/100 WBC (Bld) 0.3 % 0-1 [facility] Basophil percentage 0 SEEN /hpf 0-5 [facility] Basophil percentage 321 mg/dL 74-106 [facility] Basophil percentage 7.3 g/dL 6.4-8.2 [facility] Basophil percentage 0.80 mg/dL 0.20-1.00 [facility] Basophil percentage 131 mmol/L 136-145 [facility] Basophil percentage 4.4 mmol/L 3.5-5.1 [facility] Basophil percentage 96 mmol/L 98-107 [facility] Bilirubin Test strip Ql (U)O rdered By: Sunil Mina on 03-01-2023 Bilirubin Ql (U) Negative Negative [facility] Blood erythrocytes count (nu mber/volume)Ordered By: Sunil Mina on 03-01-2023 RBC (Bld) [#/Vol] 4.63 10*6/uL 4.2-5.4 [facility] Blood hemoglobin measurement (mass/volume)Ordered By: Sunil Mina on 03-01-2023 Hemoglobin (Bld) [Mass/Vol] 12.9 g/dL 12.0-15.0 [facility] Blood lymphocytes/100 leukoc ytesOrdered By: Sunil Mina on 03-01-2023 Lymphocytes/100 WBC (Bld) 4.8 % 19-41 [facility] Blood monocytes/100 leukocyt esOrdered By: Sunil Mina on 03-01-2023 Monocytes/100 WBC (Bld) 3.9 % 0-10 [facility] Blood platelet mean volumeOr dered By: Sunil Mina on 03-01-2023 Platelet mean volume (Bld) [Entitic vol] 8.3 fL 6.2-12.0 [facility] Determination of erythrocyte mean corpuscular volume (MCV)Ordered By: Sunil Mina on 03-01-2023 MCV (RBC) [Entitic vol] 86.6 fL 81-99 [facility] Direct bilirubinOrdered By: Sunil Mina on 03-01-2023 Bilirubin.direct [Mass/Vol] 0.18 mg/dL 0.00-0.30 [facility] Hematocrit Auto (Bld) [Volum e fraction]Ordered By: Sunil Mina on 03-01-2023 Hematocrit (Bld) [Volume fraction] 40.1 % 37-47 [facility] Ketones Test strip Ql (U)Ord ered By: Sunil Mina on 03-01-2023 Ketones Ql (U) 150 mg/dl Negative [facility] MCHC Auto (RBC) [Mass/Vol]Or dered By: Sunil Mina on 03-01-2023 MCHC (RBC) [Mass/Vol] 32.2 g/dL 32-36 [facility] Mucus LM Ql (Urine sed)Order ed By: Sunil Mina on 03-01-2023 Mucus Ql (Urine sed) 0 SEEN /hpf [facility] Nitrite Test strip Ql (U)Ord ered By: Sunil Mina on 03-01-2023 Nitrite Ql (U) Negative Negative [facility] No Panel InformationOrdered By: Sunil Mina on 03-01-2023 27.9 pg 27.0-32.0 [facility] 12.8 % 11.6-14.6 [facility] 40.0 fl 35.1-43.9 [facility] 2.600 % 0.0-0.9 [facility] 0 % 0-5 [facility] Negative [facility] 133 mL/min >60 [facility] 161 mL/min >60 [facility] 128.13 ml/min [facility] 22.2 RATIO 10-20 [facility] 4.3 g/dL 2.2-4.2 [facility] 14 U/L 13-75 [facility] 95 U/L 45-117 [facility] 17 U/L 13-56 [facility] 20.0 mmol/L 21.0-32.0 [facility] Platelets bldOrdered By: Kodi Mina on 03-01-2023 Platelets (Bld) [#/Vol] 303 10*3/uL 150-450 [facility] Protein Test strip Ql (U)Ord ered By: Sunil Mina on 03-01-2023 Protein Ql (U) 30 mg/dl Negative [facility] Serum or plasma acetone edward urement (mass/volume)Ordered By: Sunil Mina on 03-01-2023 Acetone [Mass/Vol] MODERATE NEG [facility] Serum or plasma albumin edward urement (mass/volume)Ordered By: Sunil Mina on 03-01-2023 Albumin [Mass/Vol] 3.0 g/dL 3.2-5.0 [facility] Serum or plasma calcium edward urement (mass/volume)Ordered By: Sunil Mina on 03-01-2023 Calcium [Mass/Vol] 9.1 mg/dL 8.5-10.1 [facility] Serum or plasma creatinine m easurement (mass/volume)Ordered By: Sunil Mina on 03-01-2023 Creatinine [Mass/Vol] 0.59 mg/dL 0.55-1.02 [facility] Serum or plasma urea nitroge n measurement (mass/volume)Ordered By: Sunil Mina on 03-01-2023 Urea nitrogen [Mass/Vol] 13 mg/dL 7-18 [facility] Squamous epithelial cells de tection in urine sediment by light microscopyOrdered By: Sunil Mina on 03-01-2023 Epithelial cells.squamous LM Ql (Urine sed) 0 SEEN /hpf 5-10 [facility] Thin prep Papanicolaou smear with manual screeningOrdered By: Sunil Mina on 03-01-2023 Thin prep Papanicolaou smear with manual screening 24 U/L 15-37 [facility] Thin prep Papanicolaou smear with manual screening 15 5-15 [facility] Urine blood detectionOrdered By: Sunil Mina on 03-01-2023 RBC Ql (U) 10 /ul Negative [facility] RBC Ql (U) 0 SEEN /hpf 0-5 [facility] Urine clarityOrdered By: Kodi Mina on 03-01-2023 Clarity (U) Clear Clear [facility] Urine color determinationOrd ered By: Sunil Mina on 03-01-2023 Color (U) Yellow Yellow [facility] Urine glucose detectionOrder ed By: Sunil Mnia on 03-01-2023 Glucose Ql (U) 1000 mg/dl Normal [facility] Urine leukocyte esterase det ection by dipstickOrdered By: Sunil Mina on 03-01-2023 Leukocyte esterase Test strip Ql (U) Negative Negative [facility] Urine pHOrdered By: Sunil thomas on 03-01-2023 pH (U) 5.0 [pH] 5.0 - 8.0 [facility] Urine sediment bacteria coun t by microscopy (number/high power field)Ordered By: Sunil Mina on 03-01-2023 Bacteria LM.HPF (Urine sed) [#/Area] RARE /hpf None Seen [facility] Urine specific gravity measu rementOrdered By: Sunil Mina on 03-01-2023 Specific gravity (U) [Rel density] 1.025 1.002-1.030 [facility] Urobilinogen Auto test strip Ql (U)Ordered By: Sunil Mina on 03-01-2023 Urobilinogen Ql (U) Normal mg/dl Normal [facility] Absolute lymphocyte countOrd ered By: Jackeline Akhtar on 02-17-2023 Lymphocytes Auto (Unsp spec) [#/Vol] 1.41 10*3/uL 0.83-4.51 [facility] Basophil percentageOrdered B y: Nathan Pineda on 02-17-2023 Basophil percentage 1.3 mg/dL 2.5-4.9 [facility] Basophil percentageOrdered B y: Jackeline Akhtar on 02-17-2023 Basophil percentage 136 mg/dL 74-106 [facility] Basophil percentage 139 mmol/L 136-145 [facility] Basophil percentage 2.9 mmol/L 3.5-5.1 [facility] Basophil percentage 105 mmol/L 98-107 [facility] Basophils (Bld) [#/Vol] 9.5 10*3/uL 4.4-11.0 [facility] Basophils (Bld) [#/Vol] 7.4 10*3/uL 2.0-7.7 [facility] Basophils/100 WBC (Bld) 0.1 % 0-1 [facility] Basophils/100 WBC (Bld) 77.6 % 47-70 [facility] Basophils/100 WBC (Bld) 0.0 % 0-5 [facility] Chloride [Moles/Vol] 105 mmol/L 98-107 [facility] Eosinophils/100 WBC (Bld) 0.0 % 0-5 [facility] Glucose [Mass/Vol] 136 mg/dL 74-106 [facility] Comment on above: Fasting Glucose resu lt greater than or equal to 126 mg/dL suggests DIABETES MELLITUS per A.D.A. criteria. Neutrophils (Bld) [#/Vol] 7.4 10*3/uL 2.0-7.7 [facility] Neutrophils/100 WBC (Bld) 77.6 % 47-70 [facility] Potassium [Moles/Vol] 2.9 mmol/L 3.5-5.1 [facility] Sodium [Moles/Vol] 139 mmol/L 136-145 [facility] WBC (Bld) [#/Vol] 9.5 10*3/uL 4.4-11.0 [facility] Blood erythrocytes count (nu mber/volume)Ordered By: Jackeline Akhtar on 02-17-2023 RBC (Bld) [#/Vol] 4.30 10*6/uL 4.2-5.4 [facility] Blood hemoglobin measurement (mass/volume)Ordered By: Jackeline Akhtar on 02-17-2023 Hemoglobin (Bld) [Mass/Vol] 12.4 g/dL 12.0-15.0 [facility] Blood lymphocytes/100 leukoc ytesOrdered By: Jackeline Akhtar on 02-17-2023 Lymphocytes/100 WBC (Bld) 14.8 % 19-41 [facility] Blood monocytes/100 leukocyt esOrdered By: Jackeline Akhtar on 02-17-2023 Monocytes/100 WBC (Bld) 7.2 % 0-10 [facility] Blood platelet mean volumeOr dered By: Jackeline Akhtar on 02-17-2023 Platelet mean volume (Bld) [Entitic vol] 8.9 fL 6.2-12.0 [facility] Determination of erythrocyte mean corpuscular volume (MCV)Ordered By: Jackeline Akhtar on 02-17-2023 MCV (RBC) [Entitic vol] 81.2 fL 81-99 [facility] Glucose Glucometer (BldC) [M ass/Vol]Ordered By: Nathan Pineda on 02-17-2023 Glucose [Mass/Vol] 224 mg/dL 74-106 [facility] Comment on above: MANAGEMENT OF PATIEN T CARE PER NURSING PROTOCOL Hematocrit Auto (Bld) [Volum e fraction]Ordered By: Jackeline Akhtar on 02-17-2023 Hematocrit (Bld) [Volume fraction] 34.9 % 37-47 [facility] Laboratory - Chemistry and C hemistry - challengeOrdered By: Jackeline Akhtar on 02-17-2023 CO2 [Moles/Vol] 27.0 mmol/L 21.0-32.0 [facility] Urea nitrogen/Creatinine [Mass ratio] 15.9 mg/mg 10-20 [facility] Laboratory - Hematology and Cell countsOrdered By: Jackeline Akhtar on 02-17-2023 Erythrocyte distribution width (RBC) [Entitic vol] 38.6 fL 35.1-43.9 [facility] Erythrocyte distribution width (RBC) [Ratio] 13.2 % 11.6-14.6 [facility] Immature granulocytes/100 WBC (Bld) 0.300 % 0.0-0.9 [facility] Comment on above: IG% - Immature Granu locytes (promyelocytes, myelocytes and metamyelocytes) > 1% indicates that a LEFT SHIFT is Present. MCH (RBC) [Entitic mass] 28.8 pg 27.0-32.0 [facility] Nucleated RBC/100 WBC (Bld) [Ratio] 0 % 0-5 [facility] MCHC Auto (RBC) [Mass/Vol]Or dered By: Jackeline Akhtar on 02-17-2023 MCHC (RBC) [Mass/Vol] 35.5 g/dL 32-36 [facility] No Panel InformationOrdered By: Jackeline Akhtar on 02-17-2023 Estimated Creatinine Clearance Calc 129.56 ml/min [facility] Estimated GFR (MDRD) Amer 148 mL/min >60 [facility] Comment on above: GFR Calc Estimated GFR (MDRD) Non-Af Amer 123 mL/min >60 [facility] Comment on above: Non- GFR Calc 28.8 pg 27.0-32.0 [facility] 13.2 % 11.6-14.6 [facility] 38.6 fl 35.1-43.9 [facility] 0.300 % 0.0-0.9 [facility] 0 % 0-5 [facility] 123 mL/min >60 [facility] 148 mL/min >60 [facility] 129.56 ml/min [facility] 15.9 RATIO 10-20 [facility] 27.0 mmol/L 21.0-32.0 [facility] Platelets bldOrdered By: Tyler Akhtar on 02-17-2023 Platelets (Bld) [#/Vol] 286 10*3/uL 150-450 [facility] Serum or plasma calcium edward urement (mass/volume)Ordered By: Jackeline Akhtar on 02-17-2023 Calcium [Mass/Vol] 8.4 mg/dL 8.5-10.1 [facility] Serum or plasma creatinine m easurement (mass/volume)Ordered By: Jackeline Akhtar on 02-17-2023 Creatinine [Mass/Vol] 0.63 mg/dL 0.55-1.02 [facility] Comment on above: The validity of the calculated GFR & GFRAA in patients over 70 years has not been determined. Clinical correlation is essential. Serum or plasma urea nitroge n measurement (mass/volume)Ordered By: Jackeline Akhtar on 02-17-2023 Urea nitrogen [Mass/Vol] 10 mg/dL 7-18 [facility] Thin prep Papanicolaou smear with manual screeningOrdered By: Jackeline Akhtar on 02-17-2023 Thin prep Papanicolaou smear with manual screening 7 5-15 [facility] Laboratory - Chemistry and C hemistry - challengeOrdered By: Jackeline Akhtar on 02-16-2023 Magnesium [Mass/Vol] 2.0 mg/dL 1.6-2.6 [facility] No Panel InformationOrdered By: Jackeline Akhtar on 02-16-2023 2.0 mg/dL 1.6-2.6 [facility] Absolute lymphocyte countOrd ered By: Naveed Vasquez on 02-15-2023 Lymphocytes Auto (Unsp spec) [#/Vol] 0.98 10*3/uL 0.83-4.51 [facility] Basophil percentageOrdered B y: Naveed Vasquez on 02-15-2023 Basophil percentage 0 SEEN /hpf 0-5 [facility] Basophil percentage 7.9 g/dL 6.4-8.2 [facility] Basophil percentage 1.10 mg/dL 0.20-1.00 [facility] Basophil percentage 1.5 mmol/L 0.4-2.0 [facility] Basophils/100 WBC (Bld) 0.3 % 0-1 [facility] Bilirubin [Mass/Vol] 1.10 mg/dL 0.20-1.00 [facility] Comment on above: For patients on eltr ombopag therapy, use of Dimension [place] TBIL is not recommended. Chloride [Moles/Vol] 86 mmol/L 98-107 [facility] Eosinophils/100 WBC (Bld) 0.0 % 0-5 [facility] Glucose [Mass/Vol] 443 mg/dL 74-106 [facility] Comment on above: Glucose result great er than or equal to 200 mg/dLsuggests DIABETES MELLITUS per A.D.A. criteria. Lactate [Moles/Vol] 1.5 mmol/L 0.4-2.0 [facility] Neutrophils (Bld) [#/Vol] 21.0 10*3/uL 2.0-7.7 [facility] Neutrophils/100 WBC (Bld) 89.7 % 47-70 [facility] Potassium [Moles/Vol] 2.8 mmol/L 3.5-5.1 [facility] Protein [Mass/Vol] 7.9 g/dL 6.4-8.2 [facility] Sodium [Moles/Vol] 127 mmol/L 136-145 [facility] WBC (Bld) [#/Vol] 23.4 10*3/uL 4.4-11.0 [facility] Beta hCG serum qualOrdered B y: Naveed Vasquez on 02-15-2023 Beta HCG ( test) Ql Negative [facility] Bilirubin Test strip Ql (U)O rdered By: Naveed Vasquez on 02-15-2023 Bilirubin Ql (U) Negative Negative [facility] Blood erythrocytes count (nu mber/volume)Ordered By: Naveed Vasquez on 02-15-2023 RBC (Bld) [#/Vol] 5.61 10*6/uL 4.2-5.4 [facility] Blood hemoglobin measurement (mass/volume)Ordered By: Naveed Vasquez on 02-15-2023 Hemoglobin (Bld) [Mass/Vol] 16.1 g/dL 12.0-15.0 [facility] Blood lymphocytes/100 leukoc ytesOrdered By: Naveed Vasquez on 02-15-2023 Lymphocytes/100 WBC (Bld) 4.2 % 19-41 [facility] Blood manual differential co mment interpretation (narrative result)Ordered By: Naveed Vasquez on 02-15-2023 Manual differential comment Heath (Bld) [Interp] SCANNED [facility] Comment on above: NEUTROPHILIA NOTED Blood monocytes/100 leukocyt esOrdered By: Naveed Vasquez on 02-15-2023 Monocytes/100 WBC (Bld) 4.9 % 0-10 [facility] Blood platelet mean volumeOr dered By: Naveed Vasquez on 02-15-2023 Platelet mean volume (Bld) [Entitic vol] 8.8 fL 6.2-12.0 [facility] Determination of erythrocyte mean corpuscular volume (MCV)Ordered By: Naveed Vasquez on 02-15-2023 MCV (RBC) [Entitic vol] 79.9 fL 81-99 [facility] Glucose Glucometer (BldC) [M ass/Vol]Ordered By: Jackeline Akhtar on 02-15-2023 Glucose [Mass/Vol] 349 mg/dL 74-106 [facility] Comment on above: MANAGEMENT OF PATIEN T CARE PER NURSING PROTOCOL Hematocrit Auto (Bld) [Volum e fraction]Ordered By: Naveed Vasquez on 02-15-2023 Hematocrit (Bld) [Volume fraction] 44.8 % 37-47 [facility] Ketones Test strip Ql (U)Ord ered By: Naveed Vasquez on 02-15-2023 Ketones Ql (U) 150 mg/dl Negative [facility] Comment on above: CRITICAL VALUE *HCRI TICAL VALUE VERIFIED. CALLED TO Dyan Yu02/15/23 1737 Kimi Rice.RESULTS READ BACK BY SAME. Laboratory - Chemistry and C hemistry - challengeOrdered By: Naveed Vasquez on 02-15-2023 ALP [Catalytic activity/Vol] 151 U/L 45-117 [facility] ALT [Catalytic activity/Vol] 17 U/L 13-56 [facility] CO2 [Moles/Vol] 12.0 mmol/L 21.0-32.0 [facility] Globulin (S) [Mass/Vol] 4.0 g/dL 2.2-4.2 [facility] Lipase [Catalytic activity/Vol] U/L 13-75 [facility] Comment on above: Please note:LIPASE r evised reference range effective 22. New Lipase methodology. Expected to produce lower values than the previous assay method. NEW Reference Range: 13 - 75 U/L Urea nitrogen/Creatinine [Mass ratio] 36.9 mg/mg 10-20 [facility] Laboratory - Hematology and Cell countsOrdered By: Naveed Vasquez on 02-15-2023 Erythrocyte distribution width (RBC) [Entitic vol] 35.8 fL 35.1-43.9 [facility] Erythrocyte distribution width (RBC) [Ratio] 12.7 % 11.6-14.6 [facility] Immature granulocytes/100 WBC (Bld) 0.900 % 0.0-0.9 [facility] Comment on above: IG% - Immature Granu locytes (promyelocytes, myelocytes and metamyelocytes) > 1% indicates that a LEFT SHIFT is Present. MCH (RBC) [Entitic mass] 28.7 pg 27.0-32.0 [facility] Nucleated RBC/100 WBC (Bld) [Ratio] 0 % 0-5 [facility] MCHC Auto (RBC) [Mass/Vol]Or dered By: Naveed Vasquez on 02-15-2023 MCHC (RBC) [Mass/Vol] 35.9 g/dL 32-36 [facility] Mucus LM Ql (Urine sed)Order ed By: Naveed Vasquez on 02-15-2023 Mucus Ql (Urine sed) 0 SEEN /hpf [facility] Nitrite Test strip Ql (U)Ord ered By: Naveed Vasquez on 02-15-2023 Nitrite Ql (U) Negative Negative [facility] No Panel InformationOrdered By: Naveed Vasquez on 02-15-2023 Estimated Creatinine Clearance Calc 54.87 ml/min [facility] Estimated GFR (MDRD) Amer 55 mL/min >60 [facility] Comment on above: GFR Calc Estimated GFR (MDRD) Non-Af Amer 45 mL/min >60 [facility] Comment on above: Non- GFR Calc 4.0 g/dL 2.2-4.2 [facility] < 10 U/L 13-75 [facility] 151 U/L 45-117 [facility] 17 U/L 13-56 [facility] Platelets bldOrdered By: Caitlin Vasquez on 02-15-2023 Platelets (Bld) [#/Vol] 548 10*3/uL 150-450 [facility] Protein Test strip Ql (U)Ord ered By: Naveed Vasquez on 02-15-2023 Protein Ql (U) 30 mg/dl Negative [facility] Serum or plasma acetone edward urement (mass/volume)Ordered By: Naveed Vasquez on 02-15-2023 Acetone [Mass/Vol] LARGE NEG [facility] Serum or plasma albumin edward urement (mass/volume)Ordered By: Naveed Vasquez on 02-15-2023 Albumin [Mass/Vol] 3.9 g/dL 3.2-5.0 [facility] Serum or plasma albumin/glob ulin mass ratioOrdered By: Naveed Vasquez on 02-15-2023 Albumin/Globulin [Mass ratio] 1.0 {ratio} 0.9-2.4 [facility] Serum or plasma calcium edward urement (mass/volume)Ordered By: Naveed Vasquez on 02-15-2023 Calcium [Mass/Vol] 8.6 mg/dL 8.5-10.1 [facility] Serum or plasma creatinine m easurement (mass/volume)Ordered By: Naveed Vasquez on 02-15-2023 Creatinine [Mass/Vol] 1.49 mg/dL 0.55-1.02 [facility] Comment on above: The validity of the calculated GFR & GFRAA in patients over 70 years has not been determined. Clinical correlation is essential. Serum or plasma urea nitroge n measurement (mass/volume)Ordered By: Naveed Vasquez on 02-15-2023 Urea nitrogen [Mass/Vol] 55 mg/dL 7-18 [facility] Squamous epithelial cells de tection in urine sediment by light microscopyOrdered By: Naveed Vasquez on 02-15-2023 Epithelial cells.squamous LM Ql (Urine sed) 0-5 SEEN /hpf 5-10 [facility] Thin prep Papanicolaou smear with manual screeningOrdered By: Naveed Vasquez on 02-15-2023 Thin prep Papanicolaou smear with manual screening 13 U/L 15-37 [facility] Thin prep Papanicolaou smear with manual screening 29 5-15 [facility] Urine blood detectionOrdered By: Naveed Vasquez on 02-15-2023 RBC Ql (U) 50 /ul Negative [facility] RBC Ql (U) 0 SEEN /hpf 0-5 [facility] Urine clarityOrdered By: Caitlin Vasquez on 02-15-2023 Clarity (U) Clear Clear [facility] Urine color determinationOrd ered By: Naveed Vasquez on 02-15-2023 Color (U) Yellow Yellow [facility] Urine glucose detectionOrder ed By: Naveed Vasquez on 02-15-2023 Glucose Ql (U) 1000 mg/dl Normal [facility] Urine leukocyte esterase det ection by dipstickOrdered By: Naveed Vasquez on 02-15-2023 Leukocyte esterase Test strip Ql (U) Negative Negative [facility] Urine pHOrdered By: Naveed coronado on 02-15-2023 pH (U) 5.0 [pH] 5.0 - 8.0 [facility] Urine sediment bacteria coun t by microscopy (number/high power field)Ordered By: Naveed Vasquez on 02-15-2023 Bacteria LM.HPF (Urine sed) [#/Area] 0 /[HPF] None Seen [facility] Urine specific gravity measu rementOrdered By: Naveed Vasquez on 02-15-2023 Specific gravity (U) [Rel density] 1.025 1.002-1.030 [facility] Urobilinogen Auto test strip Ql (U)Ordered By: Naveed Vasquez on 02-15-2023 Urobilinogen Ql (U) Normal mg/dl Normal [facility] Laboratory - Hematology and Cell countson 01-13-2023 HbA1c (Bld) [Mass fraction] 9.8 % 4.2-6.3 [facility] No Panel Informationon 01-13 9.8 % 4.2-6.3 [facility] Glucose Glucometer (BldC) [M ass/Vol]Ordered By: Bianca Medina on 12-27-2022 Glucose [Mass/Vol] 115 mg/dL 74-106 [facility] Comment on above: MANAGEMENT OF PATIEN T CARE PER NURSING PROTOCOL Bacteria identified Cx Nom ( U)Ordered By: Rafat Cooney on 12-26-2022 Culture, urine Presumptive C albicans [facility] Basophil percentageOrdered B y: Bianca Medina on 12-26-2022 Basophil percentage 3.4 mmol/L 3.5-5.1 [facility] Potassium [Moles/Vol] 3.4 mmol/L 3.5-5.1 [facility] Basophil percentageOrdered B y: Rafat Cooney on 12-26-2022 Basophil percentage 0 SEEN /hpf 0-5 [facility] Basophil percentage 1.9 mg/dL 2.5-4.9 [facility] Basophil percentage 129 mg/dL 74-106 [facility] Basophil percentage 142 mmol/L 136-145 [facility] Basophil percentage 111 mmol/L 98-107 [facility] Chloride [Moles/Vol] 111 mmol/L 98-107 [facility] Glucose [Mass/Vol] 129 mg/dL 74-106 [facility] Comment on above: Fasting Glucose resu lt greater than or equal to 126 mg/dL suggests DIABETES MELLITUS per A.D.A. criteria. Sodium [Moles/Vol] 142 mmol/L 136-145 [facility] Bilirubin Test strip Ql (U)O rdered By: Rafat Cooney on 12-26-2022 Bilirubin Ql (U) Negative Negative [facility] Culture, urineOrdered By: Amaya Cooney on 12-26-2022 Bacteria identified Cx Nom (U) Presumptive C albicans [facility] Ketones Test strip Ql (U)Ord ered By: Rafat Cooney on 12-26-2022 Ketones Ql (U) 150 mg/dl Negative [facility] Comment on above: CRITICAL VALUE *HCRI TICAL VALUE VERIFIED. CALLED TO LILY RUIZ (ICU)12/26/22 [address].RESULTS READ BACK BY SAME. Laboratory - Chemistry and C hemistry - challengeOrdered By: Rafat Cooney on 12-26-2022 CO2 [Moles/Vol] 24.0 mmol/L 21.0-32.0 [facility] Magnesium [Mass/Vol] 2.2 mg/dL 1.6-2.6 [facility] Urea nitrogen/Creatinine [Mass ratio] 8.2 mg/mg 10-20 [facility] Mucus LM Ql (Urine sed)Order ed By: Rafat Cooney on 12-26-2022 Mucus Ql (Urine sed) 0 SEEN /hpf [facility] Nitrite Test strip Ql (U)Ord ered By: Rafat Cooney on 12-26-2022 Nitrite Ql (U) Negative Negative [facility] No Panel InformationOrdered By: Rafat Cooney on 12-26-2022 Estimated Creatinine Clearance Calc 134.25 ml/min [facility] Estimated GFR (MDRD) Amer 154 mL/min >60 [facility] Comment on above: GFR Calc Estimated GFR (MDRD) Non-Af Amer 127 mL/min >60 [facility] Comment on above: Non- GFR Calc 127 mL/min >60 [facility] 154 mL/min >60 [facility] 134.25 ml/min [facility] 8.2 RATIO 10- [facility] 2.2 mg/dL 1.6-2.6 [facility] 24.0 mmol/L 21.0-32.0 [facility] Protein Test strip Ql (U)Ord ered By: Rafat Cooney on 12-26-2022 Protein Ql (U) Negative Negative [facility] Serum or plasma calcium edward urement (mass/volume)Ordered By: Rafat Cooney on 12-26-2022 Calcium [Mass/Vol] 8.2 mg/dL 8.5-10.1 [facility] Serum or plasma creatinine m easurement (mass/volume)Ordered By: Rafat Cooney on 12-26-2022 Creatinine [Mass/Vol] 0.61 mg/dL 0.55-1.02 [facility] Comment on above: The validity of the calculated GFR & GFRAA in patients over 70 years has not been determined. Clinical correlation is essential. Serum or plasma urea nitroge n measurement (mass/volume)Ordered By: Rafat Cooney on 12-26-2022 Urea nitrogen [Mass/Vol] 5 mg/dL 02-04 [facility] Squamous epithelial cells de tection in urine sediment by light microscopyOrdered By: Rfaat Cooney on 12-26-2022 Epithelial cells.squamous LM Ql (Urine sed) 0 SEEN /hpf 5-10 [facility] Thin prep Papanicolaou smear with manual screeningOrdered By: Rafat Cooney on 12-26-2022 Thin prep Papanicolaou smear with manual screening 7 5-15 [facility] Urine blood detectionOrdered By: Rafat Cooney on 12-26-2022 RBC Ql (U) Negative Negative [facility] RBC Ql (U) 0 SEEN /hpf 0-5 [facility] Urine clarityOrdered By: Rafat Cooney on 12-26-2022 Clarity (U) Sl. Cloudy Clear [facility] Urine color determinationOrd ered By: Rafat Cooney on 12-26-2022 Color (U) Yellow Yellow [facility] Urine glucose detectionOrder ed By: Rafat Cooney on 12-26-2022 Glucose Ql (U) 1000 mg/dl Normal [facility] Urine leukocyte esterase det ection by dipstickOrdered By: Rafat Cooney on 12-26-2022 Leukocyte esterase Test strip Ql (U) Negative Negative [facility] Urine pHOrdered By: Rafat myers on 12-26-2022 pH (U) 6.5 [pH] 5.0 - 8.0 [facility] Urine sediment bacteria coun t by microscopy (number/high power field)Ordered By: Rafat Cooney on 12-26-2022 Bacteria LM.HPF (Urine sed) [#/Area] 0 /[HPF] None Seen [facility] Urine specific gravity measu rementOrdered By: Rafat Cooney on 12-26-2022 Specific gravity (U) [Rel density] 1.010 1.002-1.030 [facility] Urobilinogen Auto test strip Ql (U)Ordered By: Rafat Cooney on 12-26-2022 Urobilinogen Ql (U) Normal mg/dl Normal [facility] Absolute lymphocyte countOrd ered By: Antonio Vaca on 12-25-2022 Lymphocytes Auto (Unsp spec) [#/Vol] 1.10 10*3/uL 0.83-4.51 [facility] Basophil percentageOrdered B y: Antonio Vaca on 12-25-2022 Basophils (Bld) [#/Vol] 14.2 10*3/uL 4.4-11.0 [facility] Basophils (Bld) [#/Vol] 12.2 10*3/uL 2.0-7.7 [facility] Basophils/100 WBC (Bld) 0.1 % 0-1 [facility] Basophils/100 WBC (Bld) 85.5 % 47-70 [facility] Basophils/100 WBC (Bld) 0.0 % 0-5 [facility] Eosinophils/100 WBC (Bld) 0.0 % 0-5 [facility] Neutrophils (Bld) [#/Vol] 12.2 10*3/uL 2.0-7.7 [facility] Neutrophils/100 WBC (Bld) 85.5 % 47-70 [facility] WBC (Bld) [#/Vol] 14.2 10*3/uL 4.4-11.0 [facility] Beta hCG serum qualOrdered B y: Rafat Cooney on 12-25-2022 Beta HCG ( test) Ql Negative [facility] Blood erythrocytes count (nu mber/volume)Ordered By: Antonio Vaca on 12-25-2022 RBC (Bld) [#/Vol] 4.61 10*6/uL 4.2-5.4 [facility] Blood hemoglobin measurement (mass/volume)Ordered By: Antonio Vaca on 12-25-2022 Hemoglobin (Bld) [Mass/Vol] 13.0 g/dL 12.0-15.0 [facility] Blood lymphocytes/100 leukoc ytesOrdered By: Antonio Vaca on 12-25-2022 Lymphocytes/100 WBC (Bld) 7.7 % 19-41 [facility] Blood monocytes/100 leukocyt esOrdered By: Antonio Vaca on 12-25-2022 Monocytes/100 WBC (Bld) 6.3 % 0-10 [facility] Blood platelet mean volumeOr dered By: Antonio Vaca on 12-25-2022 Platelet mean volume (Bld) [Entitic vol] 8.9 fL 6.2-12.0 [facility] Determination of erythrocyte mean corpuscular volume (MCV)Ordered By: Antonio Vaca on 12-25-2022 MCV (RBC) [Entitic vol] 81.3 fL 81-99 [facility] Comment on above: Delta: 86.1 on 12/24 Hematocrit Auto (Bld) [Volum e fraction]Ordered By: Antonio Vaca on 12-25-2022 Hematocrit (Bld) [Volume fraction] 37.5 % 37-47 [facility] Laboratory - Drug toxicology Ordered By: Rafat Cooney on 12-25-2022 Amphetamines Ql (U) Negative <1000 ng/mL [facility] Benzodiazepines Ql (U) Negative < 200 ng/mL [facility] Cannabinoids Screen Ql (U) Positive < 50 ng/mL [facility] Cocaine Ql (U) Negative < 300 ng/mL [facility] Opiates Ql (U) Negative < 300 ng/mL [facility] Laboratory - Hematology and Cell countsOrdered By: Antonio Vaca on 12-25-2022 Erythrocyte distribution width (RBC) [Entitic vol] 38.9 fL 35.1-43.9 [facility] Erythrocyte distribution width (RBC) [Ratio] 13.4 % 11.6-14.6 [facility] Immature granulocytes/100 WBC (Bld) 0.400 % 0.0-0.9 [facility] Comment on above: IG% - Immature Granu locytes (promyelocytes, myelocytes and metamyelocytes) > 1% indicates that a LEFT SHIFT is Present. MCH (RBC) [Entitic mass] 28.2 pg 27.0-32.0 [facility] Nucleated RBC/100 WBC (Bld) [Ratio] 0 % 0-5 [facility] MCHC Auto (RBC) [Mass/Vol]Or dered By: Antonio Vaca on 12-25-2022 MCHC (RBC) [Mass/Vol] 34.7 g/dL 32-36 [facility] Comment on above: Delta: 32.2 on 12/24 No Panel InformationOrdered By: Rafat Cooney on 12-25-2022 Ionized Calcium 5.1 mg/dL 4.5-5.6 [facility] Comment on above: Performed at: [facility] [id number] [place], [place] [id number] Director: Blade Villanueva PhD, Phone: [phone] 5.1 mg/dL 4.5-5.6 [facility] MDMA (Ecstasy) Screen Negative < 500 ng/mL [facility] Urine Barbiturates Screen Negative < 200 ng/mL [facility] Urine Drug Screen Comment [facility] Comment on above: CONFIRMATORY TESTING FOR [...] Urine Methadone Screen Negative < 300 ng/mL [facility] Negative < 300 ng/mL [facility] Positive < 50 ng/mL [facility] No Panel InformationOrdered By: Antonio Vaca on 12-25-2022 28.2 pg 27.0-32.0 [facility] 13.4 % 11.6-14.6 [facility] 38.9 fl 35.1-43.9 [facility] 0.400 % 0.0-0.9 [facility] 0 % 0-5 [facility] Platelets bldOrdered By: Nate Vaca on 12-25-2022 Platelets (Bld) [#/Vol] 353 10*3/uL 150-450 [facility] Urine phencyclidine (PCP) de tectionOrdered By: Rafat Cooney on 12-25-2022 Phencyclidine Ql (U) Negative < 25 ng/mL [facility] Urine sediment unidentified crystal count by microscopy (number/high powered field)Ordered By: Rafat Cooney on 12-25-2022 Unidentified crystals LM.HPF (Urine sed) [#/Area] 3+ /hpf None Seen [facility] Comment on above: AMMONIUM BIURATE Urine sediment yeast count b y microscopy (number/high powered field)Ordered By: Rafat Cooney on 12-25-2022 Yeast LM.HPF (Urine sed) [#/Area] 1 /[HPF] None Seen [facility] Urine tricyclic antidepressa nt measurementOrdered By: Rafat Cooney on 12-25-2022 Tricyclic antidepressants (U) [Mass/Vol] Negative <1000 ng/mL [facility] Absolute lymphocyte countOrd ered By: Dr. Canada on 12-24-2022 Lymphocytes Auto (Unsp spec) [#/Vol] 0.73 10*3/uL 0.83-4.51 [facility] Basophil percentageOrdered B y: Rafat Cooney on 12-24-2022 Basophil percentage 8.1 g/dL 6.4-8.2 [facility] Basophil percentage 0.40 mg/dL 0.20-1.00 [facility] Bilirubin [Mass/Vol] 0.40 mg/dL 0.20-1.00 [facility] Comment on above: For patients on eltr ombopag therapy, use of Dimension [place] TBIL is not recommended. Protein [Mass/Vol] 8.1 g/dL 6.4-8.2 [facility] Basophil percentageOrdered B y: Dr. Canada on 12-24-2022 Glucose [Mass/Vol] 604 mg/dL 74-106 [facility] Comment on above: Critical Result(s) C alled at: 04:06:03 12/24/2022 by: Aldo ARRIAGA RN (ED) Results read back by same.Glucose result greater than or equal to 200 mg/dLsuggests DIABETES MELLITUS per A.D.A. criteria. Basophil percentage 4.2 mg/dL 2.5-4.9 [facility] Basophils/100 WBC (Bld) 0.3 % 0-1 [facility] Bilirubin [Mass/Vol] 0.60 mg/dL 0.20-1.00 [facility] Comment on above: For patients on eltr ombopag therapy, use of Dimension [place] TBIL is not recommended. Chloride [Moles/Vol] 97 mmol/L 98-107 [facility] Eosinophils/100 WBC (Bld) 0.0 % 0-5 [facility] Neutrophils (Bld) [#/Vol] 19.9 10*3/uL 2.0-7.7 [facility] Neutrophils/100 WBC (Bld) 93.0 % 47-70 [facility] Potassium [Moles/Vol] 4.3 mmol/L 3.5-5.1 [facility] Comment on above: Slight Hemolysis, Re sult may be falsely increased. Protein [Mass/Vol] 9.0 g/dL 6.4-8.2 [facility] Sodium [Moles/Vol] 134 mmol/L 136-145 [facility] WBC (Bld) [#/Vol] 21.4 10*3/uL 4.4-11.0 [facility] Basophil percentage 0 SEEN /hpf 0-5 [facility] Beta hCG serum qualOrdered B y: Dr. Canada on 12-24-2022 Beta HCG ( test) Ql Negative [facility] Bilirubin Test strip Ql (U)O rdered By: Dr. Canada on 12-24-2022 Bilirubin Ql (U) Negative Negative [facility] Comment on above: COLOR OF URINE MAY A FFECT DIPSTICK RESULTS.Previous reported result: 3 mg/dLEdited by: MIKE on 12/24/22:0056 AMENDED REPORT 12/24/22 0056 BILIRUBIN URINE previously reported as: 3 H mg/dL COLOR OF URINE MAY AFFECT DIPSTICK RESULTS. Blood erythrocytes count (nu mber/volume)Ordered By: Dr. Canada on 12-24-2022 RBC (Bld) [#/Vol] 5.62 10*6/uL 4.2-5.4 [facility] Blood hemoglobin measurement (mass/volume)Ordered By: Dr. Canada on 12-24-2022 Hemoglobin (Bld) [Mass/Vol] 15.6 g/dL 12.0-15.0 [facility] Blood lymphocytes/100 leukoc ytesOrdered By: Dr. Canada on 12-24-2022 Lymphocytes/100 WBC (Bld) 3.4 % 19-41 [facility] Blood monocytes/100 leukocyt esOrdered By: Dr. Canada on 12-24-2022 Monocytes/100 WBC (Bld) 2.4 % 0-10 [facility] Blood platelet adequacy dete ction by light microscopyOrdered By: Dr. Canada on 12-24-2022 Platelets LM Ql (Bld) ADEQUATE ADEQ [facility] Blood platelet mean volumeOr dered By: Dr. Canada on 12-24-2022 Platelet mean volume (Bld) [Entitic vol] 10.2 fL 6.2-12.0 [facility] Determination of erythrocyte mean corpuscular volume (MCV)Ordered By: Dr. Canada on 12-24-2022 MCV (RBC) [Entitic vol] 86.1 fL 81-99 [facility] Glucose Glucometer (BldC) [M ass/Vol]Ordered By: Dr. Canada on 12-24-2022 Glucose [Mass/Vol] 434 mg/dL 74-106 [facility] Comment on above: MANAGEMENT OF PATIEN T CARE PER NURSING PROTOCOL HCO3 (BldA) [Moles/Vol]Order ed By: Dr. Canada on 12-24-2022 HCO3 (Bld) [Moles/Vol] 6 mmol/L 22-26 [facility] Hematocrit Auto (Bld) [Volum e fraction]Ordered By: Dr. Canada on 12-24-2022 Hematocrit (Bld) [Volume fraction] 48.4 % 37-47 [facility] Hyaline casts LM.LPF (Urine sed) [#/Area]Ordered By: Dr. Canada on 12-24-2022 Hyaline casts (Urine sed) [#/Area] 10 /[LPF] 0-5 [facility] Ketones Test strip Ql (U)Ord ered By: Dr. Canada on 12-24-2022 Ketones Ql (U) 150 mg/dl Negative [facility] Comment on above: CRITICAL VALUE *HCRI TICAL VALUE VERIFIED. CALLED TO RALF BHAKTA RN (ED)12/24/2257 Aldo Armstrong.RESULTS READ BACK BY SAME . Previous reported result: 5 mg/dlEdited by: MIKE on 12/24/22:0058 AMENDED REPORT 12/24/2257 KETONE UR previously reported as: 5 H mg/dl Laboratory - Chemistry and C hemistry - challengeOrdered By: Rafat Cooney on 12-24-2022 ALP [Catalytic activity/Vol] 117 U/L 45-117 [facility] ALT [Catalytic activity/Vol] 14 U/L 13-56 [facility] Globulin (S) [Mass/Vol] 4.1 g/dL 2.2-4.2 [facility] Laboratory - Chemistry and C hemistry - challengeOrdered By: Dr. Canada on 12-24-2022 CO2 [Moles/Vol] 6 mmol/L -33 [facility] ALP [Catalytic activity/Vol] 130 U/L 45-117 [facility] ALT [Catalytic activity/Vol] 18 U/L [facility] CO2 [Moles/Vol] 10.0 mmol/L 21.0-32.0 [facility] Globulin (S) [Mass/Vol] 4.3 g/dL 2.2-4.2 [facility] Magnesium [Mass/Vol] 2.3 mg/dL 1.6-2.6 [facility] Comment on above: Slight Hemolysis, Re sult may be falsely increased. Urea nitrogen/Creatinine [Mass ratio] 9.8 mg/mg 10-20 [facility] Laboratory - Hematology and Cell countsOrdered By: Dr. Canada on 12-24-2022 Erythrocyte distribution width (RBC) [Entitic vol] 40.8 fL 35.1-43.9 [facility] Erythrocyte distribution width (RBC) [Ratio] 13.4 % 11.6-14.6 [facility] Immature granulocytes/100 WBC (Bld) 0.900 % 0.0-0.9 [facility] Comment on above: IG% - Immature Granu locytes (promyelocytes, myelocytes and metamyelocytes) > 1% indicates that a LEFT SHIFT is Present. MCH (RBC) [Entitic mass] 27.8 pg 27.0-32.0 [facility] Nucleated RBC/100 WBC (Bld) [Ratio] 0 % 0-5 [facility] MCHC Auto (RBC) [Mass/Vol]Or dered By: Dr. Canada on 12-24-2022 MCHC (RBC) [Mass/Vol] 32.2 g/dL 32-36 [facility] Mucus LM Ql (Urine sed)Order ed By: Dr. Canada on 12-24-2022 Mucus Ql (Urine sed) 1+ /hpf [facility] Nitrite Test strip Ql (U)Ord ered By: Dr. Canada on 12-24-2022 Nitrite Ql (U) Positive Negative [facility] No Panel InformationOrdered By: Rafat Cooney on 12-24-2022 4.1 g/dL 2.2-4.2 [facility] 117 U/L 45-117 [facility] 14 U/L 13-56 [facility] No Panel InformationOrdered By: Dr. Canada on 12-24-2022 Bed Mix Venous Bld PCO2 at Pat Temp 17.7 mmHg 41-51 [facility] Bld Gas Crit Called To/Read Back By Yes [facility] Blood Gas Specimen Type LUIS [facility] Venous Blood Base Excess -24 mmol/L -1.0-3.5 [facility] Estimated Creatinine Clearance Calc 55.74 ml/min [facility] Estimated GFR (MDRD) Amer 58 mL/min >60 [facility] Comment on above: GFR Calc Estimated GFR (MDRD) Non-Af Amer 48 mL/min >60 [facility] Comment on above: Non- GFR Calc No Panel InformationOrdered By: Danitza Canada on 12-24-2022 LUIS [facility] Yes [facility] 17.7 mmHg 41-51 [facility] -24 mmol/L -1.0-3.5 [facility] 80 % 50-70 [facility] 6 mmol/L 23-33 [facility] PO2 venousOrdered By: Dr. Vishal gutierrez on 12-24-2022 Oxygen (BldV) [Partial pressure] 57 mm[Hg] 25-40 [facility] Platelets bldOrdered By: Dr. Canada on 12-24-2022 Platelets (Bld) [#/Vol] TNP [facility] Comment on above: Test not performedPl ease note: For this sample, a platelet estimate is provided rather than a platelet count due to platelet clumping. Other parameters associated with this sample are not affected by platelet clumping. If a more accurate platelet count is required, a redraw of the patient will be necessary.Previous reported result: 366 [id number] by: CAPRICE on 12/24/22:0121 AMENDED REPORT 12/24/22 0121 PLT previously reported as: 366 K/mm3 Protein Test strip Ql (U)Ord ered By: Dr. Canada on 12-24-2022 Protein Ql (U) 100 mg/dl Negative [facility] Serum or plasma acetone edward urement (mass/volume)Ordered By: Dr. Canada on 12-24-2022 Acetone [Mass/Vol] SMALL NEG [facility] Serum or plasma albumin edward urement (mass/volume)Ordered By: Rafat Cooney on 12-24-2022 Albumin [Mass/Vol] 4.0 g/dL 3.2-5.0 [facility] Serum or plasma albumin edward urement (mass/volume)Ordered By: Dr. Caanda on 12-24-2022 Albumin [Mass/Vol] 4.7 g/dL 3.2-5.0 [facility] Serum or plasma albumin/glob ulin mass ratioOrdered By: Rafat Cooney on 12-24-2022 Albumin/Globulin [Mass ratio] 1.0 {ratio} 0.9-2.4 [facility] Serum or plasma albumin/glob ulin mass ratioOrdered By: Dr. Canada on 12-24-2022 Albumin/Globulin [Mass ratio] 1.1 {ratio} 0.9-2.4 [facility] Serum or plasma calcium edward urement (mass/volume)Ordered By: Dr. Canada on 12-24-2022 Calcium [Mass/Vol] 10.0 mg/dL 8.5-10.1 [facility] Serum or plasma creatinine m easurement (mass/volume)Ordered By: Dr. Canada on 12-24-2022 Creatinine [Mass/Vol] 1.43 mg/dL 0.55-1.02 [facility] Comment on above: The validity of the calculated GFR & GFRAA in patients over 70 years has not been determined. Clinical correlation is essential. Serum or plasma urea nitroge n measurement (mass/volume)Ordered By: Dr. Canada on 12-24-2022 Urea nitrogen [Mass/Vol] 14 mg/dL 7-18 [facility] Squamous epithelial cells de tection in urine sediment by light microscopyOrdered By: Dr. Canada on 12-24-2022 Epithelial cells.squamous LM Ql (Urine sed) 0 SEEN /hpf 5-10 [facility] Thin prep Papanicolaou smear with manual screeningOrdered By: Rafat Cooney on 12-24-2022 Thin prep Papanicolaou smear with manual screening 4 U/L [facility] Thin prep Papanicolaou smear with manual screeningOrdered By: Dr. Canada on 12-24-2022 Thin prep Papanicolaou smear with manual screening 12 U/L [facility] Comment on above: Slight Hemolysis, Re sult may be falsely increased. Thin prep Papanicolaou smear with manual screening 27 5-15 [facility] Urine blood detectionOrdered By: Dr. Canada on 12-24-2022 RBC Ql (U) 50 /ul Negative [facility] Comment on above: Previous reported re sult: 250 /ulEdited by: MIKE on 12/24/22:0056 AMENDED REPORT 12/24/22 0056 OCCULT BLOOD-UR previously reported as: 250 H /ul RBC Ql (U) 0-5 SEEN /hpf 0-5 [facility] Urine clarityOrdered By: Dr. Canada on 12-24-2022 Clarity (U) Clear Clear [facility] Urine color determinationOrd ered By: Dr. Canada on 12-24-2022 Color (U) Yellow Yellow [facility] Urine glucose detectionOrder ed By: Dr. Canada on 12-24-2022 Glucose Ql (U) 1000 mg/dl Normal [facility] Comment on above: Previous reported re sult: Normal mg/dlEdited by: MIKE on 12/24/22:0055 AMENDED REPORT 12/24/22 0055 GLUCOSE, UR previously reported as: Normal mg/dl Urine leukocyte esterase det ection by dipstickOrdered By: Dr. Canada on 12-24-2022 Leukocyte esterase Test strip Ql (U) Negative Negative [facility] Comment on above: Previous reported re sult: 500 /ulEdited by: MIKE on 12/24/22:0056 AMENDED REPORT 12/24/22 0056 LEUK ESTERASE previously reported as: 500 H /ul Urine pHOrdered By: Dr. Brodie de la vega on 12-24-2022 pH (U) 6.0 [pH] 5.0 - 8.0 [facility] Comment on above: Previous reported re sult: 5.0 Edited by: MIKE on 12/24/22:0056 AMENDED REPORT 12/24/22 0056 pH UR previously reported as: 5.0 Urine sediment bacteria coun t by microscopy (number/high power field)Ordered By: Dr. Canada on 12-24-2022 Bacteria LM.HPF (Urine sed) [#/Area] 1 /[HPF] None Seen [facility] Urine sediment fine granular cast count by microscopy (number/low power field)Ordered By: Rafat Cooney on 12-24-2022 Fine Granular Casts LM.LPF (Urine sed) [#/Area] 0-5 SEEN /lpf 0-5 [facility] Urine specific gravity measu rementOrdered By: Dr. Canada on 12-24-2022 Specific gravity (U) [Rel density] 1.025 1.002-1.030 [facility] Urobilinogen Auto test strip Ql (U)Ordered By: Dr. Canada on 12-24-2022 Urobilinogen Ql (U) Normal mg/dl Normal [facility] Comment on above: Previous reported re sult: 8 mg/dlEdited by: MIKE on 12/24/22:0056 AMENDED REPORT 12/24/22 005 UROBILI previously reported as: 8 H mg/dl Vital signsOrdered By: Dr. Dylan campbell on 12-24-2022 Oxygen saturation in Blood 80 % 50-70 [facility] pH measurementOrdered By: Dr Nickie Canada on 12-24-2022 pH (Unsp spec) 7.12 [pH] 7.32-7.42 [facility] Culture, urineOrdered By: Dr Nickie Akhtar on 11-24-2022 Bacteria identified Cx Nom (U) Positive [facility] Absolute lymphocyte countOrd ered By: Dr. Akhtar on 11-23-2022 Lymphocytes Auto (Unsp spec) [#/Vol] 2.32 10*3/uL 0.83-4.51 [facility] Basophil percentageOrdered B y: Dr. Akhtar on 11-23-2022 Basophil percentage 2.4 mg/dL 2.5-4.9 [facility] Basophils/100 WBC (Bld) 0.4 % 0-1 [facility] Chloride [Moles/Vol] 106 mmol/L 98-107 [facility] Eosinophils/100 WBC (Bld) 0.2 % 0-5 [facility] Glucose [Mass/Vol] 186 mg/dL 74-106 [facility] Comment on above: Fasting Glucose resu lt greater than or equal to 126 mg/dL suggests DIABETES MELLITUS per A.D.A. criteria. Neutrophils (Bld) [#/Vol] 9.8 10*3/uL 2.0-7.7 [facility] Neutrophils/100 WBC (Bld) 76.4 % 47-70 [facility] Potassium [Moles/Vol] 3.6 mmol/L 3.5-5.1 [facility] Sodium [Moles/Vol] 138 mmol/L 136-145 [facility] WBC (Bld) [#/Vol] 12.9 10*3/uL 4.4-11.0 [facility] Basophil percentageOrdered B y: Jackeline Akhtar on 11-23-2022 Basophil percentage 186 mg/dL 74-106 [facility] Basophil percentage 138 mmol/L 136-145 [facility] Basophil percentage 3.6 mmol/L 3.5-5.1 [facility] Basophil percentage 106 mmol/L 98-107 [facility] Basophils (Bld) [#/Vol] 12.9 10*3/uL 4.4-11.0 [facility] Basophils (Bld) [#/Vol] 9.8 10*3/uL 2.0-7.7 [facility] Basophils/100 WBC (Bld) 76.4 % 47-70 [facility] Basophils/100 WBC (Bld) 0.2 % 0-5 [facility] Blood erythrocytes count (nu mber/volume)Ordered By: Dr. Akhtar on 11-23-2022 RBC (Bld) [#/Vol] 4.23 10*6/uL 4.2-5.4 [facility] Blood hemoglobin measurement (mass/volume)Ordered By: Dr. Akhtar on 11-23-2022 Hemoglobin (Bld) [Mass/Vol] 11.9 g/dL 12.0-15.0 [facility] Blood lymphocytes/100 leukoc ytesOrdered By: Dr. Akhtar on 11-23-2022 Lymphocytes/100 WBC (Bld) 18.0 % 19-41 [facility] Blood monocytes/100 leukocyt esOrdered By: Dr. Akhtar on 11-23-2022 Monocytes/100 WBC (Bld) 4.7 % 0-10 [facility] Blood platelet adequacy dete ction by light microscopyOrdered By: Dr. Akhtar on 11-23-2022 Platelets LM Ql (Bld) ADEQUATE ADEQ [facility] Blood platelet mean volumeOr dered By: Dr. Akhtar on 11-23-2022 Platelet mean volume (Bld) [Entitic vol] 9.3 fL 6.2-12.0 [facility] Blood platelet morphology de termination (nominal result)Ordered By: Dr. Akhtar on 11-23-2022 Platelet morphology finding Nom (Bld) CLUMPED [facility] Determination of erythrocyte mean corpuscular volume (MCV)Ordered By: Dr. Akhatr on 11-23-2022 MCV (RBC) [Entitic vol] 84.4 fL 81-99 [facility] Glucose Glucometer (dC) [M ass/Vol]Ordered By: Dr. Akhtar on 11-23-2022 Glucose [Mass/Vol] 217 mg/dL 74-106 [facility] Comment on above: MANAGEMENT OF PATIEN T CARE PER NURSING PROTOCOL Hematocrit Auto (Bld) [Volum e fraction]Ordered By: Dr. Akhtar on 11-23-2022 Hematocrit (Bld) [Volume fraction] 35.7 % 37-47 [facility] Laboratory - Chemistry and C hemistry - challengeOrdered By: Dr. Akhtar on 11-23-2022 CO2 [Moles/Vol] 23.0 mmol/L 21.0-32.0 [facility] Magnesium [Mass/Vol] 2.2 mg/dL 1.6-2.6 [facility] Urea nitrogen/Creatinine [Mass ratio] 18.2 mg/mg 10-20 [facility] Laboratory - Hematology and Cell countsOrdered By: Dr. Akhtar on 11-23-2022 Erythrocyte distribution width (RBC) [Entitic vol] 38.9 fL 35.1-43.9 [facility] Erythrocyte distribution width (RBC) [Ratio] 12.7 % 11.6-14.6 [facility] Immature granulocytes/100 WBC (Bld) 0.300 % 0.0-0.9 [facility] Comment on above: IG% - Immature Granu locytes (promyelocytes, myelocytes and metamyelocytes) > 1% indicates that a LEFT SHIFT is Present. MCH (RBC) [Entitic mass] 28.1 pg 27.0-32.0 [facility] Nucleated RBC/100 WBC (Bld) [Ratio] 0 % 0-5 [facility] MCHC Auto (RBC) [Mass/Vol]Or dered By: Dr. Akhtar on 11-23-2022 MCHC (RBC) [Mass/Vol] 33.3 g/dL 32-36 [facility] No Panel InformationOrdered By: Dr. Akhtar on 11-23-2022 Estimated Creatinine Clearance Calc 119.10 ml/min [facility] Estimated GFR (MDRD) Amer 141 mL/min >60 [facility] Comment on above: GFR Calc Estimated GFR (MDRD) Non-Af Amer 116 mL/min >60 [facility] Comment on above: Non- GFR Calc No Panel InformationOrdered By: Jackeline Akhtar on 11-23-2022 28.1 pg 27.0-32.0 [facility] 12.7 % 11.6-14.6 [facility] 38.9 fl 35.1-43.9 [facility] 0.300 % 0.0-0.9 [facility] 0 % 0-5 [facility] 116 mL/min >60 [facility] 141 mL/min >60 [facility] 119.10 ml/min [facility] 18.2 RATIO 10-20 [facility] 2.2 mg/dL 1.6-2.6 [facility] 23.0 mmol/L 21.0-32.0 [facility] Platelets bldOrdered By: Dr. Akhtar on 11-23-2022 Platelets (Bld) [#/Vol] TNP [facility] Comment on above: Test not performedPr evious reported result: 284 [id number] by: CAPRICE on 11/23/22:0410 AMENDED REPORT 11/23/22409 PLT previously reported as: 284 K/mm3 Serum or plasma calcium edward urement (mass/volume)Ordered By: Dr. Akhtar on 11-23-2022 Calcium [Mass/Vol] 8.7 mg/dL 8.5-10.1 [facility] Serum or plasma creatinine m easurement (mass/volume)Ordered By: Dr. Akhtar on 11-23-2022 Creatinine [Mass/Vol] 0.66 mg/dL 0.55-1.02 [facility] Comment on above: The validity of the calculated GFR & GFRAA in patients over 70 years has not been determined. Clinical correlation is essential. Serum or plasma urea nitroge n measurement (mass/volume)Ordered By: Dr. Akhtar on 11-23-2022 Urea nitrogen [Mass/Vol] 12 mg/dL 7-18 [facility] Thin prep Papanicolaou smear with manual screeningOrdered By: Dr. Akhtar on 11-23-2022 Thin prep Papanicolaou smear with manual screening 9 5-15 [facility] Bacteria identified Cx Nom ( U)Ordered By: Jackeline Akhtar on 11-22-2022 Culture, urine Positive [facility] Basophil percentageOrdered B y: Naveed Vasquez on 11-22-2022 Basophil percentage 1.4 mmol/L 0.4-2.0 [facility] Lactate [Moles/Vol] 1.4 mmol/L 0.4-2.0 [facility] Culture, urineOrdered By: Rj Akhtar on 11-22-2022 Bacteria identified Cx Nom (U) Positive [facility] Laboratory - Chemistry and C hemistry - challengeOrdered By: Naveed Vasquez on 11-22-2022 HCG ( test) Ql (U) Negative [facility] Comment on above: Very dilute urine sp ecimens, as indicated by a low specificgravity, may not contain personal banking representative levels of hCG. If is still suspected, a first morning urinespecimen should be collected 48 hours later and tested. No Panel InformationOrdered By: Naveed Vasquez on 11-22-2022 Negative [facility] Whole blood hemoglobin A1c/t otal hemoglobin ratio (mass fraction)Ordered By: Dr. Navarro on 11-22-2022 HbA1c (Bld) [Mass fraction] 9.9 % 3.8-5.6 [facility] Comment on above: Normal < 5.7 % Predi abetic 5.7 - 6.4 % Diabetic >or= 6.5 % Please note range changes. Absolute lymphocyte countOrd ered By: Naveed Vasquez on 11-21-2022 Lymphocytes Auto (Unsp spec) [#/Vol] 0.61 10*3/uL 0.83-4.51 [facility] Basophil percentageOrdered B y: Dr. Navarro on 11-21-2022 Basophil percentage 5.7 mg/dL 2.5-4.9 [facility] Basophil percentageOrdered B y: Naveed Vasquez on 11-21-2022 Basophil percentage 9.3 g/dL 6.4-8.2 [facility] Basophil percentage 0.80 mg/dL 0.20-1.00 [facility] Basophils/100 WBC (Bld) 0.3 % 0-1 [facility] Bilirubin [Mass/Vol] 0.80 mg/dL 0.20-1.00 [facility] Comment on above: For patients on eltr ombopag therapy, use of Dimension [place] TBIL is not recommended. Chloride [Moles/Vol] 98 mmol/L 98-107 [facility] Eosinophils/100 WBC (Bld) 0.0 % 0-5 [facility] Glucose [Mass/Vol] 452 mg/dL 74-106 [facility] Comment on above: Critical Result(s) C alled at: 18:41:37 11/21/2022 by: Barb Conner. Results read back by same.Glucose result greater than or equal to 200 mg/dLsuggests DIABETES MELLITUS per A.D.A. criteria. Lactate [Moles/Vol] 3.4 mmol/L 0.4-2.0 [facility] Neutrophils (Bld) [#/Vol] 20.0 10*3/uL 2.0-7.7 [facility] Neutrophils/100 WBC (Bld) 95.2 % 47-70 [facility] Potassium [Moles/Vol] 4.0 mmol/L 3.5-5.1 [facility] Protein [Mass/Vol] 9.3 g/dL 6.4-8.2 [facility] Sodium [Moles/Vol] 137 mmol/L 136-145 [facility] WBC (Bld) [#/Vol] 21.0 10*3/uL 4.4-11.0 [facility] Basophil percentage 0 SEEN /hpf 0-5 [facility] Bilirubin Test strip Ql (U)O rdered By: Naveed Vasquez on 11-21-2022 Bilirubin Ql (U) Negative Negative [facility] Blood erythrocytes count (nu mber/volume)Ordered By: Naveed Vasquez on 11-21-2022 RBC (Bld) [#/Vol] 5.38 10*6/uL 4.2-5.4 [facility] Blood hemoglobin measurement (mass/volume)Ordered By: Naveed Vasquez on 11-21-2022 Hemoglobin (Bld) [Mass/Vol] 15.2 g/dL 12.0-15.0 [facility] Blood lymphocytes/100 leukoc ytesOrdered By: Naveed Vasquez on 11-21-2022 Lymphocytes/100 WBC (Bld) 2.9 % 19-41 [facility] Blood manual differential co mment interpretation (narrative result)Ordered By: Naveed Vasquez on 11-21-2022 Manual differential comment Heath (Bld) [Interp] SCANNED [facility] Comment on above: NEUTROPHILIA NOTED Blood monocytes/100 leukocyt esOrdered By: Naveed Vasquez on 11-21-2022 Monocytes/100 WBC (Bld) 1.0 % 0-10 [facility] Blood platelet mean volumeOr dered By: Naveed Vasquez on 11-21-2022 Platelet mean volume (Bld) [Entitic vol] 9.4 fL 6.2-12.0 [facility] Determination of erythrocyte mean corpuscular volume (MCV)Ordered By: Naveed Vasquez on 11-21-2022 MCV (RBC) [Entitic vol] 86.6 fL 81-99 [facility] Glucose Glucometer (BldC) [M ass/Vol]Ordered By: Dr. Ruiz on 11-21-2022 Glucose [Mass/Vol] 431 mg/dL 74-106 [facility] Comment on above: MANAGEMENT OF PATIEN T CARE PER NURSING PROTOCOL Hematocrit Auto (Bld) [Volum e fraction]Ordered By: Naveed Vasquez on 11-21-2022 Hematocrit (Bld) [Volume fraction] 46.6 % 37-47 [facility] Ketones Test strip Ql (U)Ord ered By: Naveed Vasquez on 11-21-2022 Ketones Ql (U) 150 mg/dl Negative [facility] Comment on above: CRITICAL VALUE *HCRI TICAL VALUE VERIFIED. CALLED TO Tab HERNÁNDEZ RN ICU11/22/22 0601 Andrea Acuña.RESULTS READ BACK BY SAME. Laboratory - Chemistry and C hemistry - challengeOrdered By: Naveed Vasquez on 11-21-2022 ALP [Catalytic activity/Vol] 110 U/L 45-117 [facility] ALT [Catalytic activity/Vol] 24 U/L 13-56 [facility] CO2 [Moles/Vol] 15.0 mmol/L 21.0-32.0 [facility] Globulin (S) [Mass/Vol] 4.3 g/dL 2.2-4.2 [facility] Lipase [Catalytic activity/Vol] 10 U/L 13-75 [facility] Comment on above: Please note:LIPASE r evised reference range effective 22. New Lipase methodology. Expected to produce lower values than the previous assay method. NEW Reference Range: 13 - 75 U/L Urea nitrogen/Creatinine [Mass ratio] 17.9 mg/mg 10-20 [facility] Laboratory - Chemistry and C hemistry - challengeOrdered By: Dr. Navarro on 11-21-2022 Magnesium [Mass/Vol] 2.1 mg/dL 1.6-2.6 [facility] Laboratory - Drug toxicology Ordered By: Dr. Navarro on 11-21-2022 Amphetamines Ql (U) Negative <1000 ng/mL [facility] Benzodiazepines Ql (U) Negative < 200 ng/mL [facility] Cannabinoids Screen Ql (U) Positive < 50 ng/mL [facility] Cocaine Ql (U) Negative < 300 ng/mL [facility] Opiates Ql (U) Negative < 300 ng/mL [facility] Laboratory - Hematology and Cell countsOrdered By: Naveed Vasquez on 11-21-2022 Erythrocyte distribution width (RBC) [Entitic vol] 39.8 fL 35.1-43.9 [facility] Erythrocyte distribution width (RBC) [Ratio] 12.8 % 11.6-14.6 [facility] Immature granulocytes/100 WBC (Bld) 0.600 % 0.0-0.9 [facility] Comment on above: IG% - Immature Granu locytes (promyelocytes, myelocytes and metamyelocytes) > 1% indicates that a LEFT SHIFT is Present. MCH (RBC) [Entitic mass] 28.3 pg 27.0-32.0 [facility] Nucleated RBC/100 WBC (Bld) [Ratio] 0 % 0-5 [facility] MCHC Auto (RBC) [Mass/Vol]Or dered By: Naveed Vasquez on 11-21-2022 MCHC (RBC) [Mass/Vol] 32.6 g/dL 32-36 [facility] Mucus LM Ql (Urine sed)Order ed By: Naveed Vasquez on 11-21-2022 Mucus Ql (Urine sed) 1+ /hpf [facility] Nitrite Test strip Ql (U)Ord ered By: Naveed Vasquez on 11-21-2022 Nitrite Ql (U) Positive Negative [facility] No Panel InformationOrdered By: Naveed Vasquez on 11-21-2022 Estimated Creatinine Clearance Calc 77.03 ml/min [facility] Estimated GFR (MDRD) Amer 77 mL/min >60 [facility] Comment on above: GFR Calc Estimated GFR (MDRD) Non-Af Amer 63 mL/min >60 [facility] Comment on above: Non- GFR Calc 4.3 g/dL 2.2-4.2 [facility] 10 U/L 13-75 [facility] 110 U/L 45-117 [facility] 24 U/L 13-56 [facility] No Panel InformationOrdered By: Dr. Navarro on 11-21-2022 MDMA (Ecstasy) Screen Negative < 500 ng/mL [facility] Urine Barbiturates Screen Negative < 200 ng/mL [facility] Urine Drug Screen Comment [facility] Comment on above: CONFIRMATORY TESTING FOR [...] Urine Methadone Screen Negative < 300 ng/mL [facility] No Panel InformationOrdered By: Delia Navarro on 11-21-2022 [facility] Negative < 300 ng/mL [facility] Positive < 50 ng/mL [facility] Platelets bldOrdered By: Caitlin Vasquez on 11-21-2022 Platelets (Bld) [#/Vol] 440 10*3/uL 150-450 [facility] Protein Test strip Ql (U)Ord ered By: Naveed Vasquez on 11-21-2022 Protein Ql (U) 100 mg/dl Negative [facility] Serum or plasma acetone edward urement (mass/volume)Ordered By: Naveed Vasquez on 11-21-2022 Acetone [Mass/Vol] MODERATE NEG [facility] Serum or plasma albumin edward urement (mass/volume)Ordered By: Naveed Vasquez on 11-21-2022 Albumin [Mass/Vol] 5.0 g/dL 3.2-5.0 [facility] Serum or plasma albumin/glob ulin mass ratioOrdered By: Naveed Vasquez on 11-21-2022 Albumin/Globulin [Mass ratio] 1.2 {ratio} 0.9-2.4 [facility] Serum or plasma calcium edward urement (mass/volume)Ordered By: Naveed Vasquez on 11-21-2022 Calcium [Mass/Vol] 10.2 mg/dL 8.5-10.1 [facility] Serum or plasma creatinine m easurement (mass/volume)Ordered By: Naveed Vasquez on 11-21-2022 Creatinine [Mass/Vol] 1.12 mg/dL 0.55-1.02 [facility] Comment on above: The validity of the calculated GFR & GFRAA in patients over 70 years has not been determined. Clinical correlation is essential. Serum or plasma urea nitroge n measurement (mass/volume)Ordered By: Naveed Vasquez on 11-21-2022 Urea nitrogen [Mass/Vol] 20 mg/dL 7-18 [facility] Serum procalcitonin measurem entOrdered By: Dr. Navarro on 11-21-2022 Procalcitonin [Mass/Vol] 0.06 ng/mL 0.00-0.09 [facility] Comment on above: A procalcitonin (PCT [...] Ql (Urine sed) 0-5 SEEN /hpf 5-10 [facility] Thin prep Papanicolaou smear with manual screeningOrdered By: Naveed Vasquez on 11-21-2022 Thin prep Papanicolaou smear with manual screening 14 U/L 15-37 [facility] Thin prep Papanicolaou smear with manual screening 24 5-15 [facility] Urine blood detectionOrdered By: Naveed Vasquez on 11-21-2022 RBC Ql (U) 25 /ul Negative [facility] RBC Ql (U) 0-5 SEEN /hpf 0-5 [facility] Urine clarityOrdered By: Caitlin Vasquez on 11-21-2022 Clarity (U) Clear Clear [facility] Urine color determinationOrd ered By: Naveed Vasquez on 11-21-2022 Color (U) Yellow Yellow [facility] Urine glucose detectionOrder ed By: Naveed Vasquez on 11-21-2022 Glucose Ql (U) 1000 mg/dl Normal [facility] Urine leukocyte esterase det ection by dipstickOrdered By: Naveed Vasquez on 11-21-2022 Leukocyte esterase Test strip Ql (U) 25 /ul Negative [facility] Urine pHOrdered By: Naveed coronado on 11-21-2022 pH (U) 6.0 [pH] 5.0 - 8.0 [facility] Urine phencyclidine (PCP) de tectionOrdered By: Dr. Navarro on 11-21-2022 Phencyclidine Ql (U) Negative < 25 ng/mL [facility] Urine sediment bacteria coun t by microscopy (number/high power field)Ordered By: Naveed Vasquez on 11-21-2022 Bacteria LM.HPF (Urine sed) [#/Area] RARE /hpf None Seen [facility] Urine specific gravity measu rementOrdered By: Naveed Vasquez on 11-21-2022 Specific gravity (U) [Rel density] 1.020 1.002-1.030 [facility] Urobilinogen Auto test strip Ql (U)Ordered By: Naveed Vasquez on 11-21-2022 Urobilinogen Ql (U) Normal mg/dl Normal [facility] - Hematology and Cell countson 09-26-2022 HbA1c (Bld) [Mass fraction] 10.8 % [facility] Absolute lymphocyte counton 07-23-2022 Lymphocytes Auto (Unsp spec) [#/Vol] 1.43 10*3/uL 0.83-4.51 [facility] Work Phone: Amorphous sediment detection in urine sediment by light microscopyon 07-23-2022 Amorphous sediment LM Ql (Urine sed) 2+ URATE [facility] Work Phone: Basophil percentageon 2022 Basophil percentage 0 SEEN /hpf 0-5 [facility] Work Phone: Basophils/100 WBC (Bld) 0.6 % 0-1 [facility] Work Phone: Chloride [Moles/Vol] 106 mmol/L 98-107 [facility] Work Phone: Eosinophils/100 WBC (Bld) 0.7 % 0-5 [facility] Work Phone: Glucose [Mass/Vol] 220 mg/dL 74-106 [facility] Work Phone: Comment on above: Glucose result great er than or equal to 200 mg/dLsuggests DIABETES MELLITUS per A.D.A. criteria. Neutrophils (Bld) [#/Vol] 6.4 10*3/uL 2.0-7.7 [facility] Work Phone: Neutrophils/100 WBC (Bld) 77.5 % 47-70 [facility] Work Phone: Potassium [Moles/Vol] 3.8 mmol/L 3.5-5.1 [facility] Work Phone: Sodium [Moles/Vol] 139 mmol/L 136-145 [facility] Work Phone: WBC (Bld) [#/Vol] 8.3 10*3/uL 4.4-11.0 [facility] Work Phone: Bilirubin Test strip Ql (U)o n 07-23-2022 Bilirubin Ql (U) Negative Negative [facility] Work Phone: Blood erythrocytes count (nu mber/volume)on 07-23-2022 RBC (Bld) [#/Vol] 4.92 10*6/uL 4.2-5.4 [facility] Work Phone: Blood hemoglobin measurement (mass/volume)on 07-23-2022 Hemoglobin (Bld) [Mass/Vol] 13.8 g/dL 12.0-15.0 [facility] Work Phone: Blood lymphocytes/100 leukoc yteson 07-23-2022 Lymphocytes/100 WBC (Bld) 17.3 % 19-41 [facility] Work Phone: Blood monocytes/100 leukocyt eson 07-23-2022 Monocytes/100 WBC (Bld) 3.7 % 0-10 [facility] Work Phone: Blood platelet mean volumeon 07-23-2022 Platelet mean volume (Bld) [Entitic vol] 8.8 fL 6.2-12.0 [facility] Work Phone: Determination of erythrocyte mean corpuscular volume (MCV)on 07-23-2022 MCV (RBC) [Entitic vol] 87.8 fL 81-99 [facility] Work Phone: Glucose Glucometer (BldC) [M ass/Vol]on 07-23-2022 Glucose [Mass/Vol] 161 mg/dL 74-106 [facility] Work Phone: Comment on above: MANAGEMENT OF PATIEN T CARE PER NURSING PROTOCOL Hematocrit Auto (Bld) [Volum e fraction]on 07-23-2022 Hematocrit (Bld) [Volume fraction] 43.2 % 37-47 [facility] Work Phone: Ketones Test strip Ql (U)on 07-23-2022 Ketones Ql (U) Negative Negative [facility] Work Phone: Laboratory - Chemistry and C hemistry - challengeon 07-23-2022 CO2 [Moles/Vol] 26.0 mmol/L 21.0-32.0 [facility] Work Phone: Urea nitrogen/Creatinine [Mass ratio] 21.7 mg/mg 10-20 [facility] Work Phone: Laboratory - Hematology and Cell countson 07-23-2022 Erythrocyte distribution width (RBC) [Entitic vol] 41.4 fL 35.1-43.9 [facility] Work Phone: Erythrocyte distribution width (RBC) [Ratio] 12.9 % 11.6-14.6 [facility] Work Phone: Immature granulocytes/100 WBC (Bld) 0.200 % 0.0-0.9 [facility] Work Phone: Comment on above: IG% - Immature Granu locytes (promyelocytes, myelocytes and metamyelocytes) > 1% indicates that a LEFT SHIFT is Present. MCH (RBC) [Entitic mass] 28.0 pg 27.0-32.0 [facility] Work Phone: Nucleated RBC/100 WBC (Bld) [Ratio] 0 % 0-5 [facility] Work Phone: MCHC Auto (RBC) [Mass/Vol]on 07-23-2022 MCHC (RBC) [Mass/Vol] 31.9 g/dL 32-36 [facility] Work Phone: Mucus LM Ql (Urine sed)on Mucus Ql (Urine sed) 0 SEEN /hpf [facility] Work Phone: Nitrite Test strip Ql (U)on 07-23-2022 Nitrite Ql (U) Negative Negative [facility] Work Phone: No Panel Informationon 07-23 Estimated Creatinine Clearance Calc 164.43 ml/min [facility] Work Phone: Estimated GFR (MDRD) Amer 191 mL/min >60 [facility] Work Phone: Comment on above: GFR Calc Estimated GFR (MDRD) Non-Af Amer 158 mL/min >60 [facility] Work Phone: Comment on above: Non- GFR Calc Platelets bldon 07-23-2022 Platelets (Bld) [#/Vol] 347 10*3/uL 150-450 [facility] Work Phone: Protein Test strip Ql (U)on 07-23-2022 Protein Ql (U) Negative Negative [facility] Work Phone: Serum or plasma calcium edward urement (mass/volume)on 07-23-2022 Calcium [Mass/Vol] 9.2 mg/dL 8.5-10.1 [facility] Work Phone: Serum or plasma creatinine m easurement (mass/volume)on 07-23-2022 Creatinine [Mass/Vol] 0.51 mg/dL 0.55-1.02 [facility] Work Phone: Comment on above: The validity of the calculated GFR & GFRAA in patients over 70 years has not been determined. Clinical correlation is essential. Serum or plasma urea nitroge n measurement (mass/volume)on 07-23-2022 Urea nitrogen [Mass/Vol] 11 mg/dL 7-18 [facility] Work Phone: Squamous epithelial cells de tection in urine sediment by light microscopyon 07-23-2022 Epithelial cells.squamous LM Ql (Urine sed) 0-5 SEEN /hpf 5-10 [facility] Work Phone: Thin prep Papanicolaou smear with manual screeningon 07-23-2022 Thin prep Papanicolaou smear with manual screening 7 5-15 [facility] Work Phone: Urine blood detectionon RBC Ql (U) Negative Negative [facility] Work Phone: RBC Ql (U) 0 SEEN /hpf 0-5 [facility] Work Phone: Urine clarityon 07-23-2022 Clarity (U) Sl. Cloudy Clear [facility] Work Phone: Urine color determinationon 07-23-2022 Color (U) Yellow Yellow [facility] Work Phone: Urine glucose detectionon Glucose Ql (U) 250 mg/dl Normal [facility] Work Phone: Urine leukocyte esterase det ection by dipstickon 07-23-2022 Leukocyte esterase Test strip Ql (U) Negative Negative [facility] Work Phone: Urine pHon 07-23-2022 pH (U) 7.0 [pH] 5.0 - 8.0 [facility] Work Phone: Urine sediment bacteria coun t by microscopy (number/high power field)on 07-23-2022 Bacteria LM.HPF (Urine sed) [#/Area] 0 /[HPF] None Seen [facility] Work Phone: Urine specific gravity measu rementon 07-23-2022 Specific gravity (U) [Rel density] 1.010 1.002-1.030 [facility] Work Phone: Urobilinogen Auto test strip Ql (U)on 07-23-2022 Urobilinogen Ql (U) Normal mg/dl Normal [facility] Work Phone: Basophil percentageon 2021 Bilirubin [Mass/Vol] 0.50 mg/dL 0.20-1.00 [facility] Work Phone: Comment on above: For patients on eltr ombopag therapy, use of Dimension [place] TBIL is not recommended. Chloride [Moles/Vol] 107 mmol/L 98-107 [facility] Work Phone: Glucose [Mass/Vol] 119 mg/dL 74-106 [facility] Work Phone: Comment on above: Fasting Glucose resu lt from 100 to 125 mg/dL suggests IMPAIRED HOMEOSTASIS per A.D.A. criteria. Potassium [Moles/Vol] 3.7 mmol/L 3.5-5.1 [facility] Work Phone: Protein [Mass/Vol] 6.6 g/dL 6.4-8.2 [facility] Work Phone: Sodium [Moles/Vol] 142 mmol/L 136-145 [facility] Work Phone: Laboratory - Chemistry and C hemistry - challengeon 11-07-2021 ALP [Catalytic activity/Vol] 50 U/L 45-117 [facility] Work Phone: ALT [Catalytic activity/Vol] 19 U/L 13-56 [facility] Work Phone: CO2 [Moles/Vol] 27.0 mmol/L 21.0-32.0 [facility] Work Phone: Cobalamin (Vitamin B12) [Mass/Vol] 212 pg/mL 211-911 [facility] Work Phone: Globulin (S) [Mass/Vol] 2.9 g/dL 2.2-4.2 [facility] Work Phone: Magnesium [Mass/Vol] 1.7 mg/dL 1.6-2.6 [facility] Work Phone: Urea nitrogen/Creatinine [Mass ratio] 27.1 mg/mg 05-09 [facility] Work Phone: Laboratory - Hematology and Cell countson 11-07-2021 HbA1c (Bld) [Mass fraction] 6.4 % [facility] Work Phone: No Panel Informationon 11-07 Estimated GFR (MDRD) Amer 205 mL/min >60 [facility] Work Phone: Comment on above: GFR Calc Estimated GFR (MDRD) Non-Af Amer 170 mL/min >60 [facility] Work Phone: Comment on above: Non- GFR Calc Thyroid Stimulating Hormone (TSH) 1.94 uIU/mL 0.358-3.74 [facility] Work Phone: Vitamin D 25-Hydroxy 29.8 ng/mL [facility] Work Phone: Comment on above: Vitamin D 25(OH) Sta tus Range Deficiency <20 ng/mL (50nmol/L) Insufficiency 20 - 30 ng/mL (50 - 75 nmol/L) Sufficiency 30 - 100 ng/mL (75 - 250 nmol/L) Toxicity >100 ng/mL (>250 nmol/L) Serum or plasma albumin edward urement (mass/volume)on 11-07-2021 Albumin [Mass/Vol] 3.7 g/dL 3.2-5.0 [facility] Work Phone: Serum or plasma albumin/glob ulin mass ratioon 11-07-2021 Albumin/Globulin [Mass ratio] 1.3 {ratio} 0.9-2.4 [facility] Work Phone: Serum or plasma calcium edward urement (mass/volume)on 11-07-2021 Calcium [Mass/Vol] 8.6 mg/dL 8.5-10.1 [facility] Work Phone: Serum or plasma creatinine m easurement (mass/volume)on 11-07-2021 Creatinine [Mass/Vol] 0.48 mg/dL 0.55-1.02 [facility] Work Phone: Comment on above: The validity of the calculated GFR & GFRAA in patients over 70 years has not been determined. Clinical correlation is essential. Serum or plasma urea nitroge n measurement (mass/volume)on 11-07-2021 Urea nitrogen [Mass/Vol] 13 mg/dL 7-18 [facility] Work Phone: Thin prep Papanicolaou smear with manual screeningon 11-07-2021 Thin prep Papanicolaou smear with manual screening 12 U/L 15-37 [facility] Work Phone: Thin prep Papanicolaou smear with manual screening 8 5-15 [facility] Work Phone: Laboratory - Hematology and Cell countson 08-09-2021 HbA1c (Bld) [Mass fraction] 7.6 % [facility] Work Phone: EMERGENCY REPORTon 1 EMERGENCY REPORT [facility] EMERGENCY ROOM REPORT NAME ACCOUNT SEX AGE ADMIT DISCHARGE PT MED. RECORD# NUMBER DATE DATE TYPE THANG [id number] F 20 02/10/21 1 KALIE Hansen [id number] ROOM: [facility] DATE OF : 2000 DICTATING PHYSICIAN: Kashmir [...] DKA. Most recently she was admitted at [facility] for DKA. PAST MEDICAL HISTORY: insulin-dependent diabetes [...] Kashmir Sánchez MD 02/10/21 19:03 JOB #: [id number] Transcribed By: [email or web address] 02/11/21 13:01 Electronically signed by: Kashmir Sánchez M.D. 02/13/21 13:03 Page 2 of 2 KALIE DESIR Emergency Room Report Normal [facility] HGB A1C [CCL]on 02-13-2021 Glucose [Mass/Vol] 315 mg/dL Normal [facility] Comment on above: Result Comment: eAG: (Estimated average glucose) is a calculated value from HgbA1c and is personal banking representative of the average blood glucose level in the last 2-3 month period. [facility] [place] [address] [place] [address] Reese Odell III, M.D. [id number] Performed By: #### 2 [id number] #### [facility],[address] [place] [address] HbA1c (Bld) [Mass fraction] 12.6 % High 4.3-5.6 [facility] Comment on above: Result Comment: Amer [place] Diabetes Association guidelines indicate that patients with HgbA1c in the range 5.7-6.4% are at increased risk for development of diabetes, and intervention by lifestyle modification may be beneficial. HgbA1c greater or equal to 6.5% is considered diagnostic of diabetes. Performed By: #### 2 [id number] #### [facility],[address] [place], [place] [id number] BMP with eGFR DAILYon 2020 AGE 20 years Normal [facility] Comment on above: Performed By: #### 2 73399 #### [facility],[address] [place], [place] [id number] Anion gap [Moles/Vol] 11 mmol/L Normal 10 - 20 [facility] Comment on above: Performed By: #### 2 16124 #### [facility],[address] [place] [address] 06668 BMP with eGFR DAILY Normal [facility] Comment on above: Result Comment: BASI C METABOLIC PANEL Performed By: #### 2 84640 #### [facility],[address] [place] [address] Calcium [Mass/Vol] 7.8 mg/dL Low 8.5 - 10.1 [facility] Comment on above: Performed By: #### 2 83837 #### [facility],[address] [place] [address] Chloride [Moles/Vol] 110 mmol/L High 98 - 107 [facility] Comment on above: Performed By: #### 2 25206 #### [facility],[address] [place] [address] CO2 [Moles/Vol] 24.9 mmol/L Normal 21.0 - 32.0 [facility] Comment on above: Performed By: #### 2 33094 #### [facility],[address] [place] [address] Creatinine [Mass/Vol] 0.47 mg/dL Low 0.55 - 1.02 [facility] Comment on above: Performed By: #### 2 84020 #### [facility],[address] [place] [address] GFR/1.73 sq M.predicted among non-blacks MDRD (S/P/Bld) [Vol rate/Area] mL/min/{1.73_m2} Normal 60 - 999 [facility] Comment on above: Performed By: #### 2 12729 #### [facility],[address] [place] [address] Result Comment: {LL] {II] {HH] ACCORDING TO THE NATIONAL KIDNEY DISEASE EDUCATION PROGRAM(NKDE), A NORMAL eGFR IS A VALUE GREATER THAN OR EQUAL TO 60 ML/MIN/1.73 SQ METERS. CHRONIC KIDNEY DISEASE: <60mL/MIN/1.73 SQ METERS KIDNEY FAILURE: <15mL/MIN/1.73 SQ METERS THIS TEST SHOULD ONLY BE USED FOR PATIENTS 18 YEARS OF AGE AND OLDER. Glucose [Mass/Vol] 115 mg/dL High 74 - 106 [facility] Comment on above: Performed By: #### 2 60989 #### [facility],[address] [place] [address] 30416 Potassium [Moles/Vol] 3.2 mmol/L Low 3.5 - 5.1 [facility] Comment on above: Performed By: #### 2 63984 #### [facility],[address] [place] [address] 21490 Sodium [Moles/Vol] 143 mmol/L Normal 136 - 145 [facility] Comment on above: Performed By: #### 2 87060 #### [facility],[address] [place] [address] Urea nitrogen [Mass/Vol] 6 mg/dL Low 7 - 18 [facility] Comment on above: Performed By: #### 2 41467 #### [facility],[address] [place] [address] 96051 BMP with eGFRon 02-11-2021 AGE 20 years Normal [facility] Comment on above: Performed By: #### 2 70154 #### [facility],[address] [place] [address] 99632 Anion gap [Moles/Vol] 20 mmol/L Normal 10 - 20 [facility] Comment on above: Performed By: #### 2 54824 #### [facility],[address] [place] [address] 11303 BMP with eGFR Normal [facility] Comment on above: Result Comment: BASI C METABOLIC PANEL Performed By: #### 2 99419 #### [facility],[address] [place] [address] 85453 Calcium [Mass/Vol] 8.2 mg/dL Low 8.5 - 10.1 [facility] Comment on above: Performed By: #### 2 08487 #### [facility],[address] [place] [address] 69077 Chloride [Moles/Vol] 103 mmol/L Normal 98 - 107 [facility] Comment on above: Performed By: #### 2 32993 #### [facility],[address] [place], [place] [id number] CO2 [Moles/Vol] 19.1 mmol/L Low 21.0 - 32.0 [facility] Comment on above: Performed By: #### 2 60575 #### [facility],[address] [place], [place] [id number] Creatinine [Mass/Vol] 0.94 mg/dL Normal 0.55 - 1.02 [facility] Comment on above: Performed By: #### 2 45643 #### [facility],[address] [place] [address] GFR/1.73 sq M.predicted among non-blacks MDRD (S/P/Bld) [Vol rate/Area] mL/min/{1.73_m2} Normal 60 - 999 [facility] Comment on above: Performed By: #### 2 45301 #### [facility],[address] [place] [address] Result Comment: ACCO RDING TO THE NATIONAL KIDNEY DISEASE EDUCATION PROGRAM(NKDE), A NORMAL eGFR IS A VALUE GREATER THAN OR EQUAL TO 60 ML/MIN/1.73 SQ METERS. CHRONIC KIDNEY DISEASE: <60mL/MIN/1.73 SQ METERS KIDNEY FAILURE: <15mL/MIN/1.73 SQ METERS THIS TEST SHOULD ONLY BE USED FOR PATIENTS 18 YEARS OF AGE AND OLDER. Glucose [Mass/Vol] 289 mg/dL High 74 - 106 [facility] Comment on above: Performed By: #### 2 42989 #### [facility],[address] [place], [place] [id number] Potassium [Moles/Vol] 3.7 mmol/L Normal 3.5 - 5.1 [facility] Comment on above: Performed By: #### 2 96849 #### [facility],[address] [place] [address] 92269 Sodium [Moles/Vol] 138 mmol/L Normal 136 - 145 [facility] Comment on above: Performed By: #### 2 16441 #### [facility],[address] [place] [address] 46886 Urea nitrogen [Mass/Vol] 9 mg/dL Normal 7 - 18 [facility] Comment on above: Performed By: #### 2 05278 #### [facility],[address] [place] [address]381 AGE 20 years Normal [facility] Comment on above: Performed By: #### 2 37110 #### [facility],[address] [place] [address] 00440 Anion gap [Moles/Vol] 14 mmol/L Normal 10 - 20 [facility] Comment on above: Performed By: #### 2 54728 #### [facility],[address] [place] [address] 74341 BMP with eGFR Normal [facility] Comment on above: Result Comment: BASI C METABOLIC PANEL Performed By: #### 2 49062 #### [facility],[address] [place], [place] [address] Calcium [Mass/Vol] 7.9 mg/dL Low 8.5 - 10.1 [facility] Comment on above: Performed By: #### 2 02308 #### [facility],[address] [place] [address] 13534 Chloride [Moles/Vol] 104 mmol/L Normal 98 - 107 [facility] Comment on above: Performed By: #### 2 67473 #### [facility],[address] [place] [address] 46231 CO2 [Moles/Vol] 19.4 mmol/L Low 21.0 - 32.0 [facility] Comment on above: Performed By: #### 2 90562 #### [facility],[address] [place] [address] 73661 Creatinine [Mass/Vol] 0.72 mg/dL Normal 0.55 - 1.02 [facility] Comment on above: Performed By: #### 2 73309 #### [place] [address] GFR/1.73 sq M.predicted among non-blacks MDRD (S/P/Bld) [Vol rate/Area] mL/min/{1.73_m2} Normal 60 - 999 [facility] Comment on above: Performed By: #### 2 08810 #### [facility],[address] [place] [address] Result Comment: ACCO RDING TO THE NATIONAL KIDNEY DISEASE EDUCATION PROGRAM(NKDE), A NORMAL eGFR IS A VALUE GREATER THAN OR EQUAL TO 60 ML/MIN/1.73 SQ METERS. CHRONIC KIDNEY DISEASE: <60mL/MIN/1.73 SQ METERS KIDNEY FAILURE: <15mL/MIN/1.73 SQ METERS THIS TEST SHOULD ONLY BE USED FOR PATIENTS 18 YEARS OF AGE AND OLDER. Glucose [Mass/Vol] 237 mg/dL High 74 - 106 [facility] Comment on above: Performed By: #### 2 27558 #### [place] [address] Potassium [Moles/Vol] 3.6 mmol/L Normal 3.5 - 5.1 [facility] Comment on above: Performed By: #### 2 57340 #### [place] [address] Sodium [Moles/Vol] 134 mmol/L Low 136 - 145 [facility] Comment on above: Performed By: #### 2 72167 #### [place] [address] Urea nitrogen [Mass/Vol] 7 mg/dL Normal 7 - 18 [facility] Comment on above: Performed By: #### 2 00786 #### [place] [id number] AGE 20 years Normal [facility] Comment on above: Performed By: #### 2 19573 #### [place] [address] Anion gap [Moles/Vol] 21 mmol/L High 10 - 20 [facility] Comment on above: Performed By: #### 2 33899 #### [facility],[address] [place] [address] 62704 BMP with eGFR Normal [place] [facility] Comment on above: Result Comment: BASDarinel C METABOLIC PANEL Performed By: #### 2 88432 #### [facility],[address] [place] [address] 15468 Calcium [Mass/Vol] 8.3 mg/dL Low 8.5 - 10.1 [facility] Comment on above: Performed By: #### 2 97475 #### [facility],[address] [place] [address] 28426 Chloride [Moles/Vol] 103 mmol/L Normal 98 - 107 [facility] Comment on above: Performed By: #### 2 22645 #### [facility],[address] [place] [address] 25210 CO2 [Moles/Vol] 15.6 mmol/L Low 21.0 - 32.0 [facility] Comment on above: Performed By: #### 2 48588 #### [facility],[address] [place] [address] 60349 Creatinine [Mass/Vol] 0.75 mg/dL Normal 0.55 - 1.02 [facility] Comment on above: Performed By: #### 2 51564 #### [facility],[address] [place] [address] 10831 GFR/1.73 sq M.predicted among non-blacks MDRD (S/P/Bld) [Vol rate/Area] mL/min/{1.73_m2} Normal 60 - 999 [facility] Comment on above: Performed By: #### 2 82992 #### [facility],[address] [place] [address] 62273 Result Comment: ACCO RDING TO THE NATIONAL KIDNEY DISEASE EDUCATION PROGRAM(NKDE), A NORMAL eGFR IS A VALUE GREATER THAN OR EQUAL TO 60 ML/MIN/1.73 SQ METERS. CHRONIC KIDNEY DISEASE: <60mL/MIN/1.73 SQ METERS KIDNEY FAILURE: <15mL/MIN/1.73 SQ METERS THIS TEST SHOULD ONLY BE USED FOR PATIENTS 18 YEARS OF AGE AND OLDER. Glucose [Mass/Vol] 300 mg/dL High 74 - 106 [facility] Comment on above: Performed By: #### 2 27199 #### [facility],[address] [place] [address] 52344 Potassium [Moles/Vol] 3.6 mmol/L Normal 3.5 - 5.1 [facility] Comment on above: Performed By: #### 2 34990 #### [facility],[address] [place] [address] 10304 Sodium [Moles/Vol] 136 mmol/L Normal 136 - 145 [facility] Comment on above: Performed By: #### 2 00483 #### [facility],[address] [place] [address] 54078 Urea nitrogen [Mass/Vol] 8 mg/dL Normal 7 - 18 [facility] Comment on above: Performed By: #### 2 81739 #### [facility],[address] [place] [address] 20078 AGE 20 years Normal [facility] Comment on above: Performed By: #### 2 87794 #### [facility],[address] [place] [address] 42621 Anion gap [Moles/Vol] 20 mmol/L Normal 10 - 20 [facility] Comment on above: Performed By: #### 2 45675 #### [facility],[address] [place] [address] 58928 BMP with eGFR Normal [facility] Comment on above: Result Comment: BASI C METABOLIC PANEL Performed By: #### 2 29445 #### [facility],[address] [place] [address] 00042 Calcium [Mass/Vol] 8.6 mg/dL Normal 8.5 - 10.1 [facility] Comment on above: Performed By: #### 2 91114 #### [facility],[address] [place] [address] 02495 Chloride [Moles/Vol] 103 mmol/L Normal 98 - 107 [facility] Comment on above: Performed By: #### 2 98146 #### [facility],[address] [place] [address] 60880 CO2 [Moles/Vol] 17.3 mmol/L Low 21.0 - 32.0 [facility] Comment on above: Performed By: #### 2 87037 #### [facility],[address] [place] [address] 71751 Creatinine [Mass/Vol] 0.75 mg/dL Normal 0.55 - 1.02 [facility] Comment on above: Performed By: #### 2 37510 #### [facility],[address] [place] [address] 21567 GFR/1.73 sq M.predicted among non-blacks MDRD (S/P/Bld) [Vol rate/Area] mL/min/{1.73_m2} Normal 60 - 999 [facility] Comment on above: Performed By: #### 2 17587 #### [facility],[address] [place] [address] 63463 Result Comment: ACCO RDING TO THE NATIONAL KIDNEY DISEASE EDUCATION PROGRAM(NKDE), A NORMAL eGFR IS A VALUE GREATER THAN OR EQUAL TO 60 ML/MIN/1.73 SQ METERS. CHRONIC KIDNEY DISEASE: <60mL/MIN/1.73 SQ METERS KIDNEY FAILURE: <15mL/MIN/1.73 SQ METERS THIS TEST SHOULD ONLY BE USED FOR PATIENTS 18 YEARS OF AGE AND OLDER. Glucose [Mass/Vol] 96 mg/dL Normal 74 - 106 [facility] Comment on above: Performed By: #### 2 96692 #### [facility],[address] [place] [address] 75469 Potassium [Moles/Vol] 3.2 mmol/L Low 3.5 - 5.1 [facility] Comment on above: Performed By: #### 2 23843 #### [facility],[address] [place] [address] 00061 Sodium [Moles/Vol] 137 mmol/L Normal 136 - 145 [facility] Comment on above: Performed By: #### 2 92590 #### [facility],[address] [place] [address] 13384 Urea nitrogen [Mass/Vol] 9 mg/dL Normal 7 - 18 [facility] Comment on above: Performed By: #### 2 95685 #### [facility],[address] [place] [address] 35053 AGE 20 years Normal [facility] Comment on above: Performed By: #### 2 69478 #### [facility],[address] [place] [address] 37536 Anion gap [Moles/Vol] 25 mmol/L High 10 - 20 [facility] [facility] Comment on above: Performed By: #### 2 90941 #### [facility],[address] [place] [address] 55554 BMP with eGFR Normal [facility] Comment on above: Result Comment: BASI C METABOLIC PANEL Performed By: #### 2 93544 #### [facility],[address] [place] [address] 96764 Calcium [Mass/Vol] 8.5 mg/dL Normal 8.5 - 10.1 [facility] Comment on above: Performed By: #### 2 83248 #### [facility],[address] [place] [address] 13862 Chloride [Moles/Vol] 103 mmol/L Normal 98 - 107 [facility] Comment on above: Performed By: #### 2 09790 #### [facility],[address] [place] [address] 78655 CO2 [Moles/Vol] 11.3 mmol/L Low 21.0 - 32.0 [facility] Comment on above: Performed By: #### 2 39312 #### [facility],[address] [place], [place] [address] Creatinine [Mass/Vol] 0.76 mg/dL Normal 0.55 - 1.02 [facility] Comment on above: Performed By: #### 2 25382 #### [facility],[address] [place] [address] 97285 GFR/1.73 sq M.predicted among non-blacks MDRD (S/P/Bld) [Vol rate/Area] mL/min/{1.73_m2} Normal 60 - 999 [facility] Comment on above: Performed By: #### 2 55336 #### [facility],[address] [place] [address] Result Comment: ACCO RDING TO THE NATIONAL KIDNEY DISEASE EDUCATION PROGRAM(NKDE), A NORMAL eGFR IS A VALUE GREATER THAN OR EQUAL TO 60 ML/MIN/1.73 SQ METERS. CHRONIC KIDNEY DISEASE: <60mL/MIN/1.73 SQ METERS KIDNEY FAILURE: <15mL/MIN/1.73 SQ METERS THIS TEST SHOULD ONLY BE USED FOR PATIENTS 18 YEARS OF AGE AND OLDER. Glucose [Mass/Vol] 157 mg/dL High 74 - 106 [facility] Comment on above: Performed By: #### 2 86306 #### [facility],[address] [place], [place] [address] Potassium [Moles/Vol] 3.7 mmol/L Normal 3.5 - 5.1 [facility] Comment on above: Performed By: #### 2 50416 #### [facility],[address] [place] [address] 13872 Sodium [Moles/Vol] 136 mmol/L Normal 136 - 145 [facility] Comment on above: Performed By: #### 2 01688 #### [facility],[address] [place] [address] 70681 Urea nitrogen [Mass/Vol] 9 mg/dL Normal 7 - 18 [facility] Comment on above: Performed By: #### 2 69256 #### [facility],[address] [place] [address] 11454 BMP with eGFR DAILYon 2020 AGE 20 years Normal [facility] Comment on above: Performed By: #### 2 51461 #### [facility],[address] [place] [address] 73639 Anion gap [Moles/Vol] 17 mmol/L Normal 10 - 20 [facility] Comment on above: Performed By: #### 2 86242 #### [facility],[address] [place] [address] 88487 BMP with eGFR DAILY Normal [facility] Comment on above: Result Comment: BASI C METABOLIC PANEL Performed By: #### 2 74136 #### [facility],[address] [place] [address] 15239 Calcium [Mass/Vol] 8.7 mg/dL Normal 8.5 - 10.1 [facility] Comment on above: Performed By: #### 2 11776 #### [facility],[address] [place] [address] 47786 Chloride [Moles/Vol] 103 mmol/L Normal 98 - 107 [facility] Comment on above: Performed By: #### 2 93212 #### [facility],[address] [place] [address] 73251 CO2 [Moles/Vol] 18.7 mmol/L Low 21.0 - 32.0 [facility] Comment on above: Performed By: #### 2 99273 #### [facility],[address] [place] [address] 22654 Creatinine [Mass/Vol] 0.77 mg/dL Normal 0.55 - 1.02 [facility] Comment on above: Performed By: #### 2 44456 #### [facility],[address] [place] [address] 10771 GFR/1.73 sq M.predicted among non-blacks MDRD (S/P/Bld) [Vol rate/Area] mL/min/{1.73_m2} Normal 60 - 999 [facility] Comment on above: Performed By: #### 2 45450 #### [facility],[address] [place] [address] 57288 Result Comment: {LL] {II] {HH] ACCORDING TO THE NATIONAL KIDNEY DISEASE EDUCATION PROGRAM(NKDE), A NORMAL eGFR IS A VALUE GREATER THAN OR EQUAL TO 60 ML/MIN/1.73 SQ METERS. CHRONIC KIDNEY DISEASE: <60mL/MIN/1.73 SQ METERS KIDNEY FAILURE: <15mL/MIN/1.73 SQ METERS THIS TEST SHOULD ONLY BE USED FOR PATIENTS 18 YEARS OF AGE AND OLDER. Glucose [Mass/Vol] 96 mg/dL Normal 74 - 106 [facility] Comment on above: Performed By: #### 2 07175 #### [facility],[address] [place], [place] [address] Potassium [Moles/Vol] 2.9 mmol/L Critically low 3.5 - 5.1 [facility] Comment on above: Result Comment: { CA LLED TO LOI BY [facility] @ 0845 { READ BACK BY LOI RA 0845 Performed By: #### 2 72129 #### [facility],[address] [place] [address] 31432 Sodium [Moles/Vol] 136 mmol/L Normal 136 - 145 [facility] Comment on above: Performed By: #### 2 66810 #### [facility],[address] [place] [address] 20568 Urea nitrogen [Mass/Vol] 8 mg/dL Normal 7 - 18 [facility] Comment on above: Performed By: #### 2 38095 #### [facility],[address] [place] [address] 78246 EMERGENCY REPORTon 1 EMERGENCY REPORT [facility] EMERGENCY ROOM REPORT NAME ACCOUNT SEX AGE ADMIT DISCHARGE PT MED. RECORD# NUMBER DATE DATE TYPE THANG [id number] F 02/10/21 1 KALIE Hansen [id number] ROOM: [facility] DATE OF : 2000 DICTATING PHYSICIAN: Jackeline [...] Lives at home with family. PCP is [facility]. She also sees an er tech in [place] but she cannot remember the doctor's name. [...] motor or sensory deficits are noted. 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 Skin is warm and [...] stay here as oppose to go to [place]. Certainly at this point at the bedside she clinically looks very stable and I feel that she is safe to admit here. She is agreeable. DIAGNOSIS: Diabetic ketoacidosis. Dictated By: Jackeline Sherman, 02/10/21 (more content not included)... Normal [facility] LIPID PROFILEon 02-11-2021 Cholesterol [Mass/Vol] 182 mg/dL Normal 0 - 240 [facility] Comment on above: Performed By: #### 2 90788 #### [facility],[address] [place] [address] 25901 Cholesterol in HDL [Mass/Vol] 60 mg/dL Normal 40 - 60 [facility] Comment on above: Performed By: #### 2 60826 #### [facility],[address] [place] [address] 76099 Cholesterol in LDL [Mass/Vol] 99 mg/dL Normal 0 - 129 [facility] Comment on above: Performed By: #### 2 18873 #### [facility],[address] [place] [address] 96990 Cholesterol.total/Cho lesterol in HDL [Mass ratio] 3.0 {ratio} Normal 0.0 - 5.0 [facility] Comment on above: Performed By: #### 2 79685 #### [facility],[address] [place] [address] 73391 Lipid 1996 panel Normal [facility] Comment on above: Result Comment: LIPI D PROFILE Performed By: #### 2 46525 #### [facility],[address] [place] [address] 04713 Triglyceride [Mass/Vol] 116 mg/dL Normal 0 - 150 [facility] Comment on above: Performed By: #### 2 08391 #### [facility],[address] [place] [address] 42087 ARTERIAL BLOOD GAS ANALYSISo n 02-10-2021 ALLENS TEST + Normal [facility] Comment on above: Result Comment: { TI ME CALLED . Performed By: #### 2 35611 #### [facility],[address] [place] [address] 52048 ARTERIAL BLOOD GAS ANALYSIS Normal [facility] Comment on above: Result Comment: ALEXSANDRA RIAL BLOOD GAS Performed By: #### 2 56981 #### [facility],[address] [place] [address] BE -22 Low -2 - 3 [facility] Comment on above: Performed By: #### 2 12864 #### [facility],[address] [place] [address] HCO3 (Bld) [Moles/Vol] 7 mmol/L Critically low 20 - 24 [facility] Comment on above: Result Comment: { CA LLED TO DR. SÁNCHEZ 1844 { READ BACK BY DR. SÁNCHEZ Performed By: #### 2 49830 #### [facility],[address] [place] [address] Heart rate 131 /min Normal [facility] Comment on above: Performed By: #### 2 18436 #### [facility],[address] [place] [address] MODALITY RA Normal [facility] Comment on above: Performed By: #### 2 17372 #### [facility],[address] [place] [address] PCO2 18 mm Hg Critically low 35 - 45 [facility] Comment on above: Result Comment: { CA LLED TO DR. SÁNCHEZ Jim SLY { READ BACK BY DR. SÁNCHEZ Performed By: #### 2 72423 #### [facility],[address] [place] [address] pH (Bld) 7.17 [pH] Critically low 7.35 - 7.45 [facility] Comment on above: Result Comment: { CA LLED TO DR. PATRIA Conrad SLY ROBYN { READ BACK BY DR. SÁNCHEZ Performed By: #### 2 59679 #### [facility],[address] [place] [address] PO2 46 mm Hg Critically low 80 - 105 [facility] Comment on above: Result Comment: { CA LLED TO DR. SÁNCHEZ 1844 { READ BACK BY DR. PATRIA Conrad Performed By: #### 2 76260 #### [facility],[address] [place] [address] 90678 SAMPLE SITE LR Normal [facility] Comment on above: Performed By: #### 2 12016 #### [facility],[address] [place] [address] 93057 SaO2 71 Critically low 95 - 98 [facility] Comment on above: Result Comment: { CA LLED TO DR. PATRIA Conrad { READ BACK BY DR. SÁNCHEZ TIME RESULT CALLED _1844 02/10/21.1840.JHV. { FIO2/LPM .21 Performed By: #### 2 25277 #### [facility],[address] [place] [address] 04799 TOTAL RR 28 Normal [facility] Comment on above: Performed By: #### 2 21621 #### [facility],[address] [place] [address] 01928 VENT N/A Normal [facility] Comment on above: Performed By: #### 2 14708 #### [facility],[address] [place] [address] 65963 CBC + DIFFon 02-10-2021 Baso # 0.00 x10EE3/UL Normal 0.00 - 0.10 [facility] Comment on above: Performed By: #### 2 81448 #### [facility],[address] [place] [address] 86078 Basophils/100 WBC (Bld) 0.6 % Normal 0.0 - 2.0 [facility] Comment on above: Performed By: #### 2 71086 #### [facility],[address] [place] [address] 44672 CBC + DIFF Normal [facility] Comment on above: Result Comment: CBC- COMPLETE BLOOD COUNT Performed By: #### 2 28964 #### [facility],[address] [place] [address] 78284 EO # 0.00 x10EE3/UL Normal 0.00 - 0.50 [facility] Comment on above: Performed By: #### 2 65117 #### [facility],[address] [place] [address] 48838 Eosinophils/100 WBC (Bld) 0.1 % Normal 0.0 - 7.0 [facility] Comment on above: Performed By: #### 2 64252 #### [facility],[address] [place] [address] Erythrocyte distribution width (RBC) [Ratio] 13.7 % Normal 12.0 - 15.6 [facility] Comment on above: Performed By: #### 2 69757 #### [facility],[address] [place] [address] Hematocrit (Bld) [Volume fraction] 48.1 % High 34.0 - 46.0 [facility] Comment on above: Performed By: #### 2 26612 #### [facility],[address] [place] [address] 68410 Hemoglobin (Bld) [Mass/Vol] 16.3 g/dL High 12.0 - 16.0 [facility] Comment on above: Performed By: #### 2 19241 #### [facility],[address] [place] [address] 33157 Lymph # 1.60 x10EE3/UL Normal 0.80 - 2.80 [facility] Comment on above: Performed By: #### 2 72184 #### [address] [address] Lymphocytes/100 WBC (Bld) 18.6 % Low 20.0 - 45.0 [facility] Comment on above: Performed By: #### 2 19138 #### [facility],[address] [place] [address] 09367 MANUAL DIFF N/A Normal [facility] Comment on above: Performed By: #### 2 09669 #### [facility],[address] [place] [address] MCH (RBC) [Entitic mass] 30 pg Normal 27 - 33 [facility] Comment on above: Performed By: #### 2 54860 #### [facility],[address] [place] [address] MCHC 34 X10 3 Normal 32 - 36 [facility] Comment on above: Performed By: #### 2 65190 #### [facility],[address] [place] [address] MCV (RBC) [Entitic vol] 88 fL Normal 80 - 99 [facility] Comment on above: Performed By: #### 2 94211 #### [facility],[address] [place] [address] Candler # 0.50 x10EE3/UL Normal 0.20 - 1.00 [facility] Comment on above: Performed By: #### 2 80306 #### [facility],[address] [place] [address] 83122 MONOS % 5.4 % Normal 0.0 - 10.0 [facility] Comment on above: Performed By: #### 2 63890 #### [facility],[address] [place] [address] Morphology Heath (Bld) [Interp] N/A Normal [facility] Comment on above: Result Comment: {CD] Performed By: #### 2 41619 #### [facility],[address] [place] [address] Neut # 6.30 x10EE3/UL Normal 1.50 - 7.10 [facility] Comment on above: Performed By: #### 2 20630 #### [facility],[address] [place] [address] Neutrophils/100 WBC (Bld) 75.3 % Normal 46.0 - 76.0 [facility] Comment on above: Performed By: #### 2 09057 #### [facility],[address] [place] [address] 67504 PLATELET 622 x10EE3/UL High 150 - 450 [facility] Comment on above: Performed By: #### 2 28784 #### [facility],[address] [place] [address] 59508 Platelet mean volume (Bld) [Entitic vol] 7.2 fL Normal 6.6 - 10.5 [facility] Comment on above: Result Comment: AUTO MATED DIFFERENTIAL Performed By: #### 2 70046 #### [facility],[address] [place] [address] 31216 RBC 5.45 x 10EE6/UL High 4.10 - 5.30 [facility] Comment on above: Performed By: #### 2 34509 #### [facility],[address] [place] [address] 05453 WBC 8.4 x 10EE3/UL Normal 4.5 - 10.8 [facility] Comment on above: Performed By: #### 2 25893 #### [facility],[address] [place] [address] 43045 CMP with eGFRon 02-10-2021 AGE 20 years Normal [facility] Comment on above: Performed By: #### 2 77202 #### [facility],[address] [place] [address] 35571 Albumin [Mass/Vol] 4.3 g/dL Normal 3.4 - 5.0 [facility] Comment on above: Performed By: #### 2 01451 #### [facility],[address] [place] [address] 89832 Albumin/Globulin [Mass ratio] 1.1 {ratio} Normal 0.9 - 1.6 [facility] Comment on above: Performed By: #### 2 15572 #### [facility],[address] [place] [address] 85254 ALK PHOS 117 U/L High 46 - 116 [facility] Comment on above: Performed By: #### 2 04214 #### [facility],[address] [place] [address] 70299 ALT [Catalytic activity/Vol] 35 U/L Normal 14 - 59 [facility] Comment on above: Performed By: #### 2 53613 #### [facility],[address] [place] [address] 87604 Anion gap [Moles/Vol] 34 mmol/L High 10 - 20 [facility] Comment on above: Performed By: #### 2 22352 #### [facility],[address] [place] [address] AST [Catalytic activity/Vol] 21 U/L Normal 13 - 39 [facility] Comment on above: Performed By: #### 2 09758 #### [facility],[address] [place] [address] B/C RATIO 17 ratio Normal 0 - 30 [facility] Comment on above: Performed By: #### 2 11137 #### [facility],[address] [place] [address] 28091 Bilirubin [Mass/Vol] 0.8 mg/dL Normal 0.2 - 1.0 [facility] Comment on above: Performed By: #### 2 56035 #### [facility],[address] [place] [address] 94989 Calcium [Mass/Vol] 9.7 mg/dL Normal 8.5 - 10.1 [facility] Comment on above: Performed By: #### 2 87173 #### [facility],[address] [place] [address] 89235 Chloride [Moles/Vol] 98 mmol/L Normal 98 - 107 [facility] Comment on above: Performed By: #### 2 05497 #### [facility],[address] [place] [address] 77240 CMP with eGFR Normal [facility] Comment on above: Result Comment: COMP REHENSIVE METABOLIC PANEL Performed By: #### 2 19456 #### [facility],[address] [place] [address] 04555 CO2 [Moles/Vol] 8.2 mmol/L Critically low 21.0 - 32.0 [facility] Comment on above: Result Comment: { CA LLED TO EMIL @1816/ADL { READ BACK BY EMIL RA@1815 Performed By: #### 2 57335 #### [facility],[address] [place], [place] [address] Creatinine [Mass/Vol] 0.88 mg/dL Normal 0.55 - 1.02 [facility] Comment on above: Performed By: #### 2 15626 #### [facility],[address] [place] [address] 60539 GFR/1.73 sq M.predicted among non-blacks MDRD (S/P/Bld) [Vol rate/Area] mL/min/{1.73_m2} Normal 60 - 999 [facility] Comment on above: Performed By: #### 2 58102 #### [facility],[address] [place] [address] 08405 Result Comment: ACCO RDING TO THE NATIONAL KIDNEY DISEASE EDUCATION PROGRAM(NKDE), A NORMAL eGFR IS A VALUE GREATER THAN OR EQUAL TO 60 ML/MIN/1.73 SQ METERS. CHRONIC KIDNEY DISEASE: <60mL/MIN/1.73 SQ METERS KIDNEY FAILURE: <15mL/MIN/1.73 SQ METERS THIS TEST SHOULD ONLY BE USED FOR PATIENTS 18 YEARS OF AGE AND OLDER. Globulin (S) [Mass/Vol] 3.9 g/dL High 1.5 - 3.8 [facility] Comment on above: Performed By: #### 2 83546 #### [facility],[address] [place] [address] 14373 Glucose [Mass/Vol] 383 mg/dL High 74 - 106 [facility] Comment on above: Performed By: #### 2 58875 #### [facility],[address] [place] [address] 02871 Potassium [Moles/Vol] 4.5 mmol/L Normal 3.5 - 5.1 [facility] Comment on above: Performed By: #### 2 40077 #### [facility],[address] [place] [address] 17413 Protein [Mass/Vol] 8.2 g/dL Normal 6.4 - 8.2 [facility] Comment on above: Performed By: #### 2 47237 #### [facility],[address] [place] [address] 86451 Sodium [Moles/Vol] 136 mmol/L Normal 136 - 145 [facility] Comment on above: Performed By: #### 2 73427 #### [facility],[address] [place] [address] 58857 Urea nitrogen [Mass/Vol] 15 mg/dL Normal 7 - 18 [facility] Comment on above: Performed By: #### 2 94671 #### [facility],[address] [place] [address] ABDOMEN/PELVIS [facility] 02-10 CT ABDOMEN/PELVIS [place] [address] Patient: KALIE DESIR Phone#: : 2000 Age: 20 Gender: F Pt. Type: ER Account: [id number] Location: [facility] Ordering: DR. KASHMIR SÁNCHEZ Exam Date: 02/10/2021/19:09 Family Phys: Charge Code: [id number] Physician: [place] Order #: [id number] DLP Dose#: 4.2mGy PROCEDURE: CT ABDOMEN/PELVIS WITHOUT [...] 20 Gender: F Pt. Type: ER Account: [id number] Location: 2 Ordering: DR. KASHMIR SÁNCHEZ Exam Date: 02/10/2021/19:09 Family Phys: Charge Code: [id number] Physician: [place] Order #: [id number] DLP Dose#: 4.2mGy LUNG BASES: Normal. No visible pulmonary or pleural disease. OTHER: Negative. CONCLUSION: 1. Possibility enteritis/mesenteric adenitis is raised. Dictated by: Carmenza Hurtado MD on 02/11/2021 at 22:31 Approved by: Carmenza Hurtado MD on 02/11/2021 at 22:33 Normal [facility] KETONE, BLOOD, QUALon 2020 Ketones Ql (U) MODERATE Normal XOCHITL - NEGATIVE [facility] Comment on above: Result Comment: SPEC IMEN SERUM Performed By: #### 2 72798 #### [facility],[address] [place] [address] LACTATEon 02-10-2021 Lactate [Moles/Vol] 2.0 mmol/L Normal 0.4 - 2.0 [facility] Comment on above: Performed By: #### 2 20331 #### [facility],[address] [place] [address] LIPASEon 02-10-2021 Lipase [Catalytic activity/Vol] 64.0 U/L Low 73.0 - 393 [facility] Comment on above: Performed By: #### 2 79443 #### [facility],[address] [place] [address] URINEon 02-10-2021 Beta HCG ( test) Ql (U) Negative Normal NEGATIVE [facility] Comment on above: Performed By: #### 2 61319 #### [facility],[address] [place] [address] EXTERNAL QC DONE? YES Normal [facility] Comment on above: Performed By: #### 2 73528 #### [facility],[address] [place] [address] INTERNAL QC PASS Normal [facility] Comment on above: Performed By: #### 2 79403 #### [facility],[address] [place], [place] [address] URINALYSISon 02-10-2021 Bilirubin Ql (U) Negative Normal NORMAL: NEGATIVE [facility] Comment on above: Performed By: #### 2 67893 #### [facility],[address] [place] [address] Clarity (U) clear Normal NORMAL: CLEAR [facility] Comment on above: Performed By: #### 2 59845 #### [facility],[address] [place], [place] [address] Color (U) p.yel Normal NORMAL: YELLOW [facility] Comment on above: Performed By: #### 2 90722 #### [facility],[address] [place], [place] [address] Glucose Ql (U) 1000 Abnormal NORMAL: NORMAL [facility] Comment on above: Performed By: #### 2 44990 #### [facility],[address] [place] [address] 01140 Hemoglobin Ql (U) Negative Normal NORMAL: NEGATIVE [facility] Comment on above: Performed By: #### 2 75834 #### [facility],[address] [place] [address] 47486 Ketone 150 Abnormal NORMAL: NEGATIVE [facility] Comment on above: Performed By: #### 2 80967 #### [facility],[address] [place] [address] 97445 Leukocytes Negative Normal NORMAL: NEGATIVE [facility] Comment on above: Performed By: #### 2 05951 #### [facility],[address] [place] [address] 52403 Nitrite Ql (U) Negative Normal NORMAL: NEGATIVE [facility] Comment on above: Performed By: #### 2 02586 #### [facility],[address] [place] [address] pH (U) 5 [pH] Normal NORMAL: 5.0-8.0 [facility] Comment on above: Performed By: #### 2 56824 #### [facility],[address] [place], [place] [address] Protein Ql (U) 30 Abnormal NORMAL: NEGATIVE [facility] Comment on above: Performed By: #### [id number] #### [facility],[address] [place], [place] [id number] Sp [place] 1.025 Normal NORMAL: 1.010-1.030 [facility] Comment on above: Performed By: #### [id number] #### [facility],[address] [place] [address] Specimen Type Void Normal [facility] Comment on above: Performed By: #### [id number] #### [facility],[address] [place] [address] Urinalysis dipstick W Reflex Microscopic panel (U) NOT INDICATED Normal [facility] Comment on above: Performed By: #### [id number] #### [facility],[address] [place] [id number] Urobilinog NORM Normal NORMAL: NORMAL [facility] Comment on above: Performed By: #### [id number] #### [facility],[address] [place] [id number] XR Hand - right PA and Later al and Obliqueon 05-05-2020 IMPRESSION: Unremarkable radiograph Truck Rental Clerk: PSCB Transcribe Date/Time: May 05 2020 1:52P Dictated by : NATHAN TA MD This examination was interpreted and the report reviewed and electronically signed by: NATHAN TA MD on May 05 2020 1:53PM [facility] DIVISION OF RADIOLOGY * * *Final [...] spaces are maintained. DIVISION OF RADIOLOGY Provider, [facility] - 05/05/2020 * * *Final Report* * [...] spaces are maintained. IMPRESSION IMPRESSION: Unremarkable radiograph Truck Rental Clerk: PSCB Transcribe Date/Time: May 05 2020 1:52P Dictated by : NATHAN TA MD This examination was interpreted and the report reviewed and electronically signed by: NATHAN TA MD on May 05 2020 1:53PM EST [facility] Radiology Study observation (narrative) [facility] XR Hand - right PA and Later al and ObliqueOrdered By: Ccf Provider on 05-05-2020 [facility] Office Visit: nexplanonon Documentation of current medications (procedure) Done Invalid Interpretation Code [facility] Fall risk assessment No Invalid Interpretation Code [facility] HCG.beta subunit ( test) Ql (U) Negative Invalid Interpretation Code [facility] Protein mass conc Done Invalid Interpretation Code [facility] Tobacco smoking status NHIS Never Invalid Interpretation Code [facility] Tobacco smoking status NHIS Current every day smoker Invalid Interpretation Code [facility] Tobacco use HS Current every day smoker Invalid Interpretation Code [facility] Urine, test (choriogonadotropin presence) Negative Invalid Interpretation Code [facility] Lab Report: Comprehensive Ok tabolic Profilon 04-03-2017 Alanine aminotransferase (ALT) 16 U/L Invalid Interpretation Code [facility] Work Phone: Albumin 4.1 g/dL Invalid Interpretation Code 3.2-4.5 [facility] Work Phone: Albumin/Globulin Ratio 1.1 {ratio} Invalid Interpretation Code 0.9-2.4 [facility] Work Phone: Alkaline phosphatase (ALP) 96 U/L Invalid Interpretation Code 47-119 [facility] Work Phone: ALP enzyme act/vol (Bld) 96 U/L Invalid Interpretation Code 47-119 [facility] Anion gap 10 mmol/L Invalid Interpretation Code 5-15 [facility] Work Phone: Anion gap 4 molar conc 10 Invalid Interpretation Code 5-15 [facility] Aspartate aminotransferase (AST) 10 U/L Low 15-37 [...] (BldV) 26.0 mmol/L Invalid Interpretation Code 21.0-32.0 [facility] Creatinine 0.51 mg/dL Low 0.55-1.02 [facility] Work Phone: eGFR (non-black) 201 mL/min/{1.73_m2} Invalid Interpretation Code >60 [facility] Work Phone: eGFR (non-black) 166 mL/min/{1.73_m2} Invalid Interpretation Code >60 [facility] Work Phone: EST GFR - AA 201 mL/min Invalid Interpretation Code >60 [facility] Globulin 3.6 g/dL High 2.3-3.5 [facility] [...] current medications (procedure) Done Invalid Interpretation Code [facility] Work Phone: Microbiology: Culture, Genit al Comprehensiveon 03-31-2017 CUV Vancomycin $ 0.5 S Invalid Interpretation Code [facility] GE use only - for [employer] import when terms are not otherwise specified Vancomycin $ 0.5 S Invalid Interpretation Code [facility] Work Phone: Office Visit: vaginal itchin jose 03-28-2017 Documentation of current medications (procedure) Done Invalid Interpretation Code [facility] Fall risk assessment No Invalid Interpretation Code [facility] Protein mass conc Done [facility] Tobacco smoking status NHIS Never Invalid Interpretation Code [facility] Tobacco smoking status NHIS Current every day smoker [facility] Tobacco use CPHS Current every day smoker Invalid Interpretation Code [facility] Office Visit: Implanton Documentation of current medications (procedure) Done Invalid Interpretation Code [facility] HCG.[facility] ( test) Ql (U) Negative Invalid Interpretation Code [facility] Protein mass conc Done [facility] Tobacco smoking status NHIS Never [facility] Tobacco smoking status NHIS Current every day smoker [facility] Tobacco use CPHS Current every day smoker Invalid Interpretation Code [facility] Urine, test (choriogonadotropin presence) Negative Invalid Interpretation Code [facility] Lab Report: Thyroid Stim Hor zohra (TSH)on [...] Facility 11-28-2024 13:09-0400 Body temperature 97.8 [degF] [facility] 11-28-2024 13:09-0400 Diastolic blood pressure 72 mm[Hg] [facility] 11-28-2024 13:09-0400 Heart rate 80 /min [facility] 11-28-2024 13:09-0400 Respiratory rate 16 /min [facility] 11-28-2024 13:09-0400 SaO2% (BldA) [Mass fraction] 99 % [facility] 11-28-2024 13:09-0400 Systolic blood pressure 124 mm[Hg] [facility] 11-28-2024 09:40-0400 Body height 149.86 cm [facility] 11-28-2024 09:40-0400 Body weight 74 kg [facility] 11-28-2024 06:00-0400 Body mass index (BMI) [Ratio] 32.8 kg/m2 [facility] 11-27-2024 15:34-0400 Body temperature 97.3 [degF] [facility] 11-27-2024 15:34-0400 Diastolic blood pressure 88 mm[Hg] [facility] 11-27-2024 15:34-0400 Heart rate 97 /min [facility] 11-27-2024 15:34-0400 Respiratory rate 19 /min [facility] 11-27-2024 15:34-0400 SaO2% (BldA) [Mass fraction] 98 % [facility] 11-27-2024 15:34-0400 Systolic blood pressure 126 mm[Hg] [facility] 11-27-2024 12:23-0400 Body height 149.86 cm [facility] 11-27-2024 12:23-0400 Body mass index (BMI) [Ratio] 29 kg/m2 [facility] 11-27-2024 12:23-0400 Body weight 65.31 kg [facility] 11-26-2024 13:34-0400 Body temperature 97.6 [degF] [facility] 11-26-2024 13:34-0400 Diastolic blood pressure 83 mm[Hg] [facility] 11-26-2024 13:34-0400 Heart rate 78 /min [facility] 11-26-2024 13:34-0400 Respiratory rate 18 /min [facility] 11-26-2024 13:34-0400 SaO2% (BldA) [Mass fraction] 98 % [facility] 11-26-2024 13:34-0400 Systolic blood pressure 134 mm[Hg] [facility] 11-26-2024 07:48-0400 Body height 149.86 cm [facility] 11-26-2024 07:48-0400 Body mass index (BMI) [Ratio] 29.1 kg/m2 [facility] 11-26-2024 07:48-0400 Body weight 65.4 kg [facility] 11-11-2024 14:24-0400 Body mass index (BMI) [Ratio] 29.7 kg/m2 [facility] 11-11-2024 14:24-0400 Body weight 66.73 kg [facility] 11-11-2024 14:24-0400 Diastolic blood pressure 79 mm[Hg] [facility] 11-11-2024 14:24-0400 Systolic blood pressure 117 mm[Hg] [facility] 10-04-2024 13:40-0400 Body height 149.86 cm [facility] 10-04-2024 13:40-0400 Body mass index (BMI) [Ratio] 31.3 kg/m2 [facility] 10-04-2024 13:40-0400 Body temperature 97.5 [degF] [facility] 10-04-2024 13:40-0400 Body weight 70.3 kg [facility] 10-04-2024 13:40-0400 Diastolic blood pressure 82 mm[Hg] [facility] 10-04-2024 13:40-0400 Heart rate 88 /min [facility] 10-04-2024 13:40-0400 Respiratory rate 15 /min [facility] 10-04-2024 13:40-0400 SaO2% (BldA) [Mass fraction] 99 % [facility] 10-04-2024 13:40-0400 Systolic blood pressure 139 mm[Hg] [facility] 09-13-2024 09:15-0500 Body mass index (BMI) [Ratio] 33 kg/m2 [facility] 09-13-2024 09:15-0500 Body weight 69.39 kg [facility] 09-13-2024 09:15-0500 Diastolic blood pressure 78 mm[Hg] [facility] 09-13-2024 09:15-0500 Systolic blood pressure 120 mm[Hg] [facility] 08-18-2024 12:42-0500 Body mass index (BMI) [Ratio] 29.91 kg/m2 Aris Geraldo 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 Work Phone: [facility] 08-18-2024 12:42-0500 Body temperature 98.1 [degF] Aris Geraldo 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 Work Phone: [facility] 08-18-2024 12:42-0500 Body weight 66.4 kg Aris Geraldo 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 Work Phone: [facility] 08-18-2024 12:42-0500 Diastolic blood pressure 70 mm[Hg] Aris Geraldo 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 Work Phone: [facility] 08-18-2024 12:42-0500 Heart rate 102 /min Aris Geraldo 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 Work Phone: [facility] 08-18-2024 12:42-0500 Respiratory rate 16 /min Aris Geraldo 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 Work Phone: [facility] 08-18-2024 12:42-0500 SaO2% (BldA) [Mass fraction] 98 % Aris Chow APRN.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 MANAGER Work Phone: [facility] 08-18-2024 12:42-0500 Systolic blood pressure 122 mm[Hg] Aris Chow APRN.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 MANAGER Work Phone: [facility] 05-07-2024 15:05-0400 Body mass index (BMI) [Ratio] 30.95 kg/m2 Arjun Kim MD Work Phone: [facility] 05-07-2024 15:05-0400 Body temperature 99 [degF] Arjun Kim MD Work Phone: [facility] 05-07-2024 15:05-0400 Body weight 68.7 kg Arjun Kim MD Work Phone: [facility] 05-07-2024 15:05-0400 Diastolic blood pressure 68 mm[Hg] Arjun Kim MD Work Phone: [facility] 05-07-2024 15:05-0400 Heart rate 89 /min Arjun Kim MD Work Phone: [facility] 05-07-2024 15:05-0400 Respiratory rate 16 /min Arjun Kim MD Work Phone: [facility] 05-07-2024 15:05-0400 SaO2% (BldA) [Mass fraction] 98 % Arjun Kim MD Work Phone: [facility] 05-07-2024 15:05-0400 Systolic blood pressure 118 mm[Hg] Arjun Kim MD Work Phone: [facility] 03-25-2024 14:14-0400 Body mass index (BMI) [Ratio] 30.58 kg/m2 Rosa Isela Gonzalez APRN.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 MANAGER Work Phone: [facility] 03-25-2024 14:14-0400 Body temperature 99 [degF] Rosa Isela Gonzalez APRN.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 MANAGER Work Phone: [facility] 03-25-2024 14:14-0400 Body weight 67.9 kg Rosa Isela Gonzalez APRN.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 MANAGER Work Phone: [facility] 03-25-2024 14:14-0400 Diastolic blood pressure 82 mm[Hg] Rosa Isela Gonzalez APRN.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 MANAGER Work Phone: [facility] 03-25-2024 14:14-0400 Heart rate 105 /min Rosa Isela Gonzalez APRN.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 MANAGER Work Phone: [facility] 03-25-2024 14:14-0400 Respiratory rate 21 /min Rosa Isela Gonzalez APRN.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 MANAGER Work Phone: [facility] 03-25-2024 14:14-0400 SaO2% (BldA) [Mass fraction] 98 % Rosa Isela Gonzalez APRN.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 MANAGER Work Phone: [facility] 03-25-2024 14:14-0400 Systolic blood pressure 118 mm[Hg] Rosa Isela Gonzalez APRN.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 MANAGER Work Phone: [facility] 03-10-2024 10:28-0400 Diastolic blood pressure 70 mm[Hg] Evelyn Carr MD Work Phone: [facility] 03-10-2024 10:28-0400 Systolic blood pressure 122 mm[Hg] Evelyn Carr MD Work Phone: [facility] 03-01-2024 11:09-0400 Body height 149 cm Evelyn Carr MD Work Phone: [facility] 03-01-2024 11:09-0400 Body mass index (BMI) [Ratio] 31.26 kg/m2 Evelyn Carr MD Work Phone: [facility] 03-01-2024 11:09-0400 Body weight 69.4 kg Evelyn Carr MD Work Phone: [facility] 03-01-2024 11:09-0400 Diastolic blood pressure 72 mm[Hg] Evelyn Carr MD Work Phone: [facility] 03-01-2024 11:09-0400 Systolic blood pressure 120 mm[Hg] Evelyn Carr MD Work Phone: [facility] 02-04-2024 09:52-0400 Body height 149.9 cm Veronika Cioce 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 Work Phone: [facility] 02-04-2024 09:52-0400 Body mass index (BMI) [Ratio] 30.62 kg/m2 Veronika Cioce 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 Work Phone: [facility] 02-04-2024 09:52-0400 Body temperature 97.7 [degF] Veronika Cioce 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 Work Phone: [facility] 02-04-2024 09:52-0400 Body weight 68.77 kg Veronika Cioce 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 Work Phone: [facility] 02-04-2024 09:52-0400 Diastolic blood pressure 74 mm[Hg] Veronika Cioce 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 Work Phone: [facility] 02-04-2024 09:52-0400 Heart rate 120 /min Veronika Cioce 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 Work Phone: [facility] 02-04-2024 09:52-0400 SaO2% (BldA) [Mass fraction] 99 % Veronika Cioce 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 Work Phone: [facility] 02-04-2024 09:52-0400 Systolic blood pressure 122 mm[Hg] Veronika Cioce 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 Work Phone: [facility] 01-27-2024 10:13-0400 Heart rate 89 /min Chasity Hodge PA-C Work Phone: [facility] 01-27-2024 09:49-0400 Body mass index (BMI) [Ratio] 30.7 kg/m2 Chasity Hodge PA-C Work Phone: [facility] 01-27-2024 09:49-0400 Body temperature 98.01 [degF] Chasity Hodge PA-C Work Phone: [facility] 01-27-2024 09:49-0400 Body weight 68.95 kg Chasity Hodge PA-C Work Phone: [facility] 01-27-2024 09:49-0400 Diastolic blood pressure 68 mm[Hg] Chasity Hodge PA-C Work Phone: [facility] 01-27-2024 09:49-0400 Respiratory rate 18 /min Chasity Hodge PA-C Work Phone: [facility] 01-27-2024 09:49-0400 SaO2% (BldA) [Mass fraction] 98 % Chasity Hodge PA-C Work Phone: [facility] 01-27-2024 09:49-0400 Systolic blood pressure 100 mm[Hg] Chasity Hodge PA-C Work Phone: [facility] 12-24-2023 09:33-0400 Body mass index (BMI) [Ratio] 30.9 kg/m2 Chasity Hodge PA-C Work Phone: [facility] 12-24-2023 09:33-0400 Body temperature 97.9 [degF] Chasity Hodge PA-C Work Phone: [facility] 12-24-2023 09:33-0400 Body weight 69.4 kg Chasity Hodge PA-C Work Phone: [facility] 12-24-2023 09:33-0400 Diastolic blood pressure 59 mm[Hg] Chasity Hodge PA-C Work Phone: [facility] 12-24-2023 09:33-0400 Heart rate 89 /min Chasity Hodge PA-C Work Phone: [facility] 12-24-2023 09:33-0400 Respiratory rate 16 /min Chasity Hodge PA-C Work Phone: [facility] 12-24-2023 09:33-0400 SaO2% (BldA) [Mass fraction] 98 % Chasitykristina Hodge PA-C Work Phone: [facility] 12-24-2023 09:33-0400 Systolic blood pressure 98 mm[Hg] Chasity Hodge PA-C Work Phone: [facility] 11-28-2023 10:00-0400 Body temperature 97.8 [degF] [facility] 11-28-2023 10:00-0400 Diastolic blood pressure 77 mm[Hg] [facility] 11-28-2023 10:00-0400 Heart rate 101 /min [facility] 11-28-2023 10:00-0400 Respiratory rate 12 /min [facility] 11-28-2023 10:00-0400 SaO2% (BldA) [Mass fraction] 98 % [facility] 11-28-2023 10:00-0400 Systolic blood pressure 115 mm[Hg] [facility] 11-28-2023 04:15-0400 Body mass index (BMI) [Ratio] 28.5 kg/m2 [facility] 11-28-2023 04:15-0400 Body weight 64.2 kg [facility] 11-26-2023 14:39-0400 Body height 149.86 cm [facility] 11-26-2023 08:35-0400 Body temperature 97.6 [degF] [facility] 11-26-2023 08:35-0400 Diastolic blood pressure 86 mm[Hg] [facility] 11-26-2023 08:35-0400 Heart rate 126 /min [facility] 11-26-2023 08:35-0400 Respiratory rate 18 /min [facility] 11-26-2023 08:35-0400 SaO2% (BldA) [Mass fraction] 99 % [facility] 11-26-2023 08:35-0400 Systolic blood pressure 137 mm[Hg] [facility] 11-26-2023 08:28-0400 Body height 149.86 cm [facility] 11-26-2023 08:28-0400 Body mass index (BMI) [Ratio] 28.3 kg/m2 [facility] 11-26-2023 08:28-0400 Body weight 63.7 kg [facility] 11-11-2023 02:49-0400 Body height 149.86 cm [facility] 11-11-2023 02:49-0400 Body mass index (BMI) [Ratio] 31.8 kg/m2 [facility] 11-11-2023 02:49-0400 Body temperature 97.6 [degF] [facility] 11-11-2023 02:49-0400 Body weight 71.66 kg [facility] 11-11-2023 02:49-0400 Diastolic blood pressure 74 mm[Hg] [facility] 11-11-2023 02:49-0400 Heart rate 89 /min [facility] 11-11-2023 02:49-0400 Respiratory rate 18 /min [facility] 11-11-2023 02:49-0400 SaO2% (BldA) [Mass fraction] 97 % [facility] 11-11-2023 02:49-0400 Systolic blood pressure 142 mm[Hg] [facility] 10-17-2023 12:00-0400 Body temperature 97.3 [degF] [facility] 10-17-2023 12:00-0400 Diastolic blood pressure 57 mm[Hg] [facility] 10-17-2023 12:00-0400 Heart rate 81 /min [facility] 10-17-2023 12:00-0400 Respiratory rate 19 /min [facility] 10-17-2023 12:00-0400 SaO2% (BldA) [Mass fraction] 100 % [facility] 10-17-2023 12:00-0400 Systolic blood pressure 115 mm[Hg] [facility] 10-17-2023 10:29-0400 Body height 149.86 cm [facility] 10-17-2023 10:29-0400 Body weight 63.5 kg [facility] 10-17-2023 05:01-0400 Body mass index (BMI) [Ratio] 28.3 kg/m2 [facility] 10-16-2023 18:07-0400 Body temperature 98.8 [degF] [facility] 10-16-2023 18:07-0400 Diastolic blood pressure 85 mm[Hg] [facility] 10-16-2023 18:07-0400 Heart rate 99 /min [facility] 10-16-2023 18:07-0400 Respiratory rate 17 /min [facility] 10-16-2023 18:07-0400 SaO2% (BldA) [Mass fraction] 100 % [facility] 10-16-2023 18:07-0400 Systolic blood pressure 158 mm[Hg] [facility] 10-16-2023 16:00-0400 Body mass index (BMI) [Ratio] 31.1 kg/m2 [facility] 10-16-2023 16:00-0400 Body weight 69.8 kg [facility] 10-16-2023 15:57-0400 Body height 149.86 cm [facility] 08-23-2023 15:33-0500 Diastolic blood pressure 62 mm[Hg] [facility] 08-23-2023 15:33-0500 Heart rate 90 /min [facility] 08-23-2023 15:33-0500 Respiratory rate 18 /min [facility] 08-23-2023 15:33-0500 SaO2% (BldA) [Mass fraction] 99 % [facility] 08-23-2023 15:33-0500 Systolic blood pressure 130 mm[Hg] [facility] 08-23-2023 12:39-0500 Body mass index (BMI) [Ratio] 31.3 kg/m2 [facility] 08-23-2023 12:39-0500 Body temperature 100 [degF] [facility] 08-23-2023 12:39-0500 Body weight 70.3 kg [facility] 08-13-2023 13:40-0500 Body height 149.86 cm [facility] 08-13-2023 13:40-0500 Body mass index (BMI) [Ratio] 31.5 kg/m2 [facility] 08-13-2023 13:40-0500 Body temperature 98.8 [degF] [facility] 08-13-2023 13:40-0500 Body weight 70.76 kg [facility] 08-13-2023 13:40-0500 Diastolic blood pressure 76 mm[Hg] [facility] 08-13-2023 13:40-0500 Heart rate 88 /min [facility] 08-13-2023 13:40-0500 Respiratory rate 18 /min [facility] 08-13-2023 13:40-0500 SaO2% (BldA) [Mass fraction] 98 % [facility] 08-13-2023 13:40-0500 Systolic blood pressure 123 mm[Hg] [facility] 05-12-2023 13:39-0400 Body mass index (BMI) [Ratio] 28.1 kg/m2 [facility] 05-12-2023 13:39-0400 Body temperature 98.2 [degF] [facility] 05-12-2023 13:39-0400 Body weight 63.21 kg [facility] 05-12-2023 13:39-0400 Diastolic blood pressure 78 mm[Hg] [facility] 05-12-2023 13:39-0400 Heart rate 102 /min [facility] 05-12-2023 13:39-0400 Respiratory rate 16 /min [facility] 05-12-2023 13:39-0400 SaO2% (BldA) [Mass fraction] 97 % [facility] 05-12-2023 13:39-0400 Systolic blood pressure 114 mm[Hg] [facility] 04-07-2023 12:21-0400 Body temperature 98.91 [degF] Arely Velez 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 Work Phone: [facility] 04-07-2023 12:21-0400 Body weight 63.05 kg Arely Velez 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 Work Phone: [facility] 04-07-2023 12:21-0400 Diastolic blood pressure 66 mm[Hg] Arely Velez 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 Work Phone: [facility] 04-07-2023 12:21-0400 Heart rate 112 /min Arely Velez 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 Work Phone: [facility] 04-07-2023 12:21-0400 Respiratory rate 16 /min Arely Velez 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 Work Phone: [facility] 04-07-2023 12:21-0400 SaO2% (BldA) [Mass fraction] 97 % Arely Velez 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 Work Phone: [facility] 04-07-2023 12:21-0400 Systolic blood pressure 112 mm[Hg] Arely Velez 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 Work Phone: [facility] 03-05-2023 14:16-0400 Body temperature 98 [degF] Dr. Erika Sen Work Phone: [facility] 03-05-2023 14:16-0400 Diastolic blood pressure 98 mm[Hg] Dr. Erika Sen Work Phone: [facility] 03-05-2023 14:16-0400 Heart rate 89 /min Dr. Erika Sen Work Phone: [facility] 03-05-2023 14:16-0400 Respiratory rate 16 /min Dr. Erika Sen Work Phone: [phone] [place] [address] 03-05-2023 14:16-0400 SaO2% (BldA) [Mass fraction] 99 % Dr. Erika Sen Work Phone: 3(384)[phone] [place] [address] 03-05-2023 14:16-0400 Systolic blood pressure 129 mm[Hg] Dr. Erika Sen Work Phone: 4(694)[phone] [place] [address] 03-05-2023 05:16-0400 Body mass index (BMI) [Ratio] 25.4 kg/m2 Dr. Erika Sen Work Phone: 7(522)[phone] [place] [address] 03-05-2023 05:16-0400 Body weight 57.[address] Erika Sen Work Phone: 2(270)[phone] [place] [address] 03-04-2023 08:32-0400 Body height 149.[address] Erika Sen Work Phone: 0(605)721-752655 [place] [address] 03-03-2023 15:51-0400 Body temperature 98 [degF] Dr. Erika Sen Work Phone: 8(217)948-894855 [place] [address] 03-03-2023 15:51-0400 Diastolic blood pressure 78 mm[Hg] Dr. Erika Sen Work Phone: 3(432)652-649855 [place] [address] 03-03-2023 15:51-0400 Heart rate 82 /min Dr. Erika Sen Work Phone: 1(946)130-566655 [place] [address] 03-03-2023 15:51-0400 Respiratory rate 16 /min Dr. Erika Sen Work Phone: 6(277)994-361655 [place] [address] 03-03-2023 15:51-0400 SaO2% (BldA) [Mass fraction] 100 % Dr. Erika Sen Work Phone: 4(124)180-397655 [place] [address] 03-03-2023 15:51-0400 Systolic blood pressure 135 mm[Hg] Dr. Erika Sen Work Phone: 8(538)440-009355 [place] [address] 03-03-2023 11:50-0400 Body height 149.[address] Erika Sen Work Phone: 6(274)692-944155 [place] [address] 03-03-2023 11:50-0400 Body mass index (BMI) [Ratio] 21.6 kg/m2 Dr. Erika Sen Work Phone: [facility] 03-03-2023 11:50-0400 Body weight 48.[address] Erika Sen Work Phone: [facility] 03-03-2023 10:33-0400 Body temperature 98.71 [degF] Chasity CROOKS-C Work Phone: [facility] 03-03-2023 10:33-0400 Diastolic blood pressure 70 mm[Hg] Chasity CROOKS-C Work Phone: [facility] 03-03-2023 10:33-0400 Heart rate 134 /min Chasity Hodge PA-C Work Phone: [facility] 03-03-2023 10:33-0400 Systolic blood pressure 130 mm[Hg] Chasity CROOKS-C Work Phone: [facility] 03-02-2023 04:42-0400 Diastolic blood pressure 84 mm[Hg] Dr. Erika Sen Work Phone: [facility] 03-02-2023 04:42-0400 Heart rate 71 /min Dr. Erika Sen Work Phone: [facility] 03-02-2023 04:42-0400 Respiratory rate 18 /min Dr. Erika Sen Work Phone: [facility] 03-02-2023 04:42-0400 SaO2% (BldA) [Mass fraction] 100 % Dr. Erika Sen Work Phone: [facility] 03-02-2023 04:42-0400 Systolic blood pressure 110 mm[Hg] Dr. Erika Sen Work Phone: [facility] 03-01-2023 22:12-0400 Body mass index (BMI) [Ratio] 24.5 kg/m2 Dr. Erika Sen Work Phone: 7(377)320-965903 [place] [address] 03-01-2023 22:12-0400 Body temperature 98 [degF] Dr. Erika Sen Work Phone: 0(633)240-417055 [place] [address] 03-01-2023 22:12-0400 Body weight 55.[address] Erika Sen Work Phone: 1(205)410-704855 [place] [address] 02-17-2023 10:30-0400 Body temperature 99.3 [degF] Dr. Erika Sen Work Phone: 9(326)634-544555 [place] [address] 02-17-2023 10:30-0400 Diastolic blood pressure 86 mm[Hg] Dr. Erika Sen Work Phone: 1(754)904-985955 [place] [address] 02-17-2023 10:30-0400 Heart rate 86 /min Dr. Erika Sen Work Phone: 1(461)597-063855 [place] [address] 02-17-2023 10:30-0400 Respiratory rate 16 /min Dr. Erika Sen Work Phone: 3(033)031-366455 [place] [address] 02-17-2023 10:30-0400 SaO2% (BldA) [Mass fraction] 100 % Dr. Erika Sen Work Phone: 9(911)622-807055 [place] [address] 02-17-2023 10:30-0400 Systolic blood pressure 141 mm[Hg] Dr. Erika Sen Work Phone: 6(170)060-531055 [place] [address] 02-17-2023 06:00-0400 Body mass index (BMI) [Ratio] 26.7 kg/m2 Dr. Erika Sen Work Phone: 8(111)417-270455 [place] [address] 02-17-2023 06:00-0400 Body weight 60.[address] Erika Sen Work Phone: 9(940)215-502155 [place] [address] 02-15-2023 17:14-0400 Body temperature 97.3 [degF] Dr. Erika Sen Work Phone: 9(985)607-903055 [place] [address] 02-15-2023 17:14-0400 Diastolic blood pressure 77 mm[Hg] Dr. Erika Sen Work Phone: 6(588)148-420655 [place] [address] 02-15-2023 17:14-0400 Heart rate 138 /min Dr. Erika Sen Work Phone: [facility] 02-15-2023 17:14-0400 Respiratory rate 33 /min Dr. Erika Sen Work Phone: [facility] 02-15-2023 17:14-0400 SaO2% (BldA) [Mass fraction] 99 % Dr. Erika Sen Work Phone: [facility] 02-15-2023 17:14-0400 Systolic blood pressure 126 mm[Hg] Dr. Erika Sen Work Phone: 9(972)262-832803 [place] [address] 02-15-2023 15:05-0400 Body mass index (BMI) [Ratio] 26.6 kg/m2 Dr. Erika Sen Work Phone: 9(475)375-460503 [place] [address] 02-15-2023 15:05-0400 Body weight 59.[address] Erika Sen Work Phone: [facility] 02-15-2023 14:13-0400 Body height 149.[address] Erika Sen Work Phone: [facility] 01-16-2023 08:04-0400 Body temperature 98.1 [degF] Chasity Hodge PA-C Work Phone: [facility] 01-16-2023 08:04-0400 Body weight 63.5 kg Chasity Hodge PA-C Work Phone: [facility] 01-16-2023 08:04-0400 Diastolic blood pressure 80 mm[Hg] Chasity Hodge PA-C Work Phone: [facility] 01-16-2023 08:04-0400 Heart rate 94 /min Chasity Hodge PA-C Work Phone: [facility] 01-16-2023 08:04-0400 Respiratory rate 16 /min Chasity Hodge PA-C Work Phone: [facility] 01-16-2023 08:04-0400 Systolic blood pressure 130 mm[Hg] Chasity Hodge PA-C Work Phone: [facility] 01-13-2023 11:35-0400 Body mass index (BMI) [Ratio] 28 kg/m2 Dr. Erika Sen Work Phone: [facility] 01-13-2023 11:35-0400 Body temperature 98.1 [degF] Dr. Erika Sen Work Phone: 1(562)151-381903 [place] [address] 01-13-2023 11:35-0400 Body weight 63.[address] Erika Sen Work Phone: 2(187)528-425455 [place] [address] 01-13-2023 11:35-0400 Diastolic blood pressure 71 mm[Hg] Dr. Erika Sen Work Phone: 1(418)893-728055 [place] [address] 01-13-2023 11:35-0400 Heart rate 109 /min Dr. Erika Sen Work Phone: 8(785)186-307355 [place] [address] 01-13-2023 11:35-0400 Respiratory rate 16 /min Dr. Erika Sen Work Phone: 9(295)516-470555 [place] [address] 01-13-2023 11:35-0400 SaO2% (BldA) [Mass fraction] 97 % Dr. Erika Sen Work Phone: 8(749)988-716103 [place] [address] 01-13-2023 11:35-0400 Systolic blood pressure 103 mm[Hg] Dr. Erika Sen Work Phone: 9(465)383-360703 [place] [address] 12-27-2022 10:09-0400 Body temperature 98.3 [degF] Dr. Erkia Sen Work Phone: 2(089)708-097103 [place] [address] 12-27-2022 10:09-0400 Diastolic blood pressure 79 mm[Hg] Dr. Erika Sen Work Phone: 3(622)602-927955 [place] [address] 12-27-2022 10:09-0400 Heart rate 78 /min Dr. Erika Sen Work Phone: 0(578)053-135555 [place] [address] 12-27-2022 10:09-0400 Respiratory rate 18 /min Dr. Erika Sen Work Phone: 7(885)072-236503 [place] [address] 12-27-2022 10:09-0400 SaO2% (BldA) [Mass fraction] 98 % Dr. Erika Sen Work Phone: 7(122)657-503955 [place] [address] 12-27-2022 10:09-0400 Systolic blood pressure 120 mm[Hg] Dr. Erika Sen Work Phone: 9(778)280-607755 [place] [address] 12-26-2022 13:30-0400 Body weight 59.[address] Erika Sen Work Phone: 4(566)783-628155 [place] [address] 12-26-2022 06:00-0400 Body mass index (BMI) [Ratio] 26.5 kg/m2 Dr. Erika Sen Work Phone: 8(593)869-942355 [place] [address] 12-24-2022 06:04-0400 Body temperature 97.1 [degF] Dr. Erika Sen Work Phone: 5(992)093-221355 [place] [address] 12-24-2022 06:04-0400 Diastolic blood pressure 98 mm[Hg] Dr. Erika Sen Work Phone: 1(643)135-430355 [place] [address] 12-24-2022 06:04-0400 Heart rate 146 /min Dr. Erika Sen Work Phone: 8(465)674-454855 [place] [address] 12-24-2022 06:04-0400 Respiratory rate 36 /min Dr. Erika Sen Work Phone: 7(675)674-694655 [place] [address] 12-24-2022 06:04-0400 SaO2% (BldA) [Mass fraction] 99 % Dr. Erika Sen Work Phone: 6(110)593-160955 [place] [address] 12-24-2022 06:04-0400 Systolic blood pressure 145 mm[Hg] Dr. Erika Sen Work Phone: 5(328)068-853155 [place] [address] 12-23-2022 23:46-0400 Body height 149.[address] Erika Sen Work Phone: 5(328)539-093155 [place] [address] 12-23-2022 23:46-0400 Body mass index (BMI) [Ratio] 25.9 kg/m2 Dr. Erika Sen Work Phone: 5(712)179-198903 [place] [address] 12-23-2022 23:46-0400 Body weight 58.[address] Erika Sen Work Phone: 6(829)133-712255 [place] [address] 11-23-2022 09:11-0400 Body height 149.[address] Erika Sen Work Phone: 8(619)385-798555 [place] [address] 11-23-2022 09:11-0400 Body weight 57.[address] Erika Sen Work Phone: 5(079)966-031155 [place] [address] 11-23-2022 08:00-0400 Body temperature 98 [degF] Dr. Erika Sen Work Phone: 6(640)763-889955 [place] [address] 11-23-2022 08:00-0400 Diastolic blood pressure 77 mm[Hg] Dr. Erika Sen Work Phone: 8(721)010-659555 [place] [address] 11-23-2022 08:00-0400 Heart rate 78 /min Dr. Erika Sen Work Phone: 0(839)094-384955 [place] [address] 11-23-2022 08:00-0400 Respiratory rate 23 /min Dr. Erika Sen Work Phone: 2(151)693-850555 [place] [address] 11-23-2022 08:00-0400 SaO2% (BldA) [Mass fraction] 99 % Dr. Erika Sen Work Phone: 0(464)793-092455 [place] [address] 11-23-2022 08:00-0400 Systolic blood pressure 121 mm[Hg] Dr. Erika Sen Work Phone: 0(214)578-822155 [place] [address] 11-23-2022 05:41-0400 Body mass index (BMI) [Ratio] 25.6 kg/m2 Dr. Erika Sen Work Phone: 9(988)630-582655 [place] [address] 11-21-2022 20:24-0400 Body temperature 98.2 [degF] Dr. Erika Sen Work Phone: 3(403)250-702855 [place] [address] 11-21-2022 20:24-0400 Diastolic blood pressure 67 mm[Hg] Dr. Erika Sen Work Phone: 3(494)361-918155 [place] [address] 11-21-2022 20:24-0400 Heart rate 89 /min Dr. Erika Sen Work Phone: 2(633)849-372455 [place] [address] 11-21-2022 20:24-0400 Respiratory rate 18 /min Dr. Erika Sen Work Phone: 7(722)761-534055 [place] [address] 11-21-2022 20:24-0400 SaO2% (BldA) [Mass fraction] 99 % Dr. Erika eSn Work Phone: 4(706)899-896955 [place] [address] 11-21-2022 20:24-0400 Systolic blood pressure 128 mm[Hg] Dr. Erika Sen Work Phone: 8(707)072-700655 [place] [address] 11-21-2022 17:14-0400 Body mass index (BMI) [Ratio] 28 kg/m2 Dr. Erika Sen Work Phone: 7(044)086-065455 [place] [address] 11-21-2022 17:14-0400 Body weight [address] Erika Sen Work Phone: 4(175)674-568555 [place] [address] 11-21-2022 17:04-0400 Body height 149.[address] Erika Sen Work Phone: 5(107)355-370655 [place] [address] 09-26-2022 15:56-0500 Body mass index (BMI) [Ratio] 28.6 kg/m2 Dr. Erika Sen Work Phone: 2(326)382-553855 [place] [address] 09-26-2022 15:56-0500 Body temperature 98.4 [degF] Dr. Erika Sen Work Phone: 8(456)114-514155 [place] [address] 09-26-2022 15:56-0500 Body weight 64.[address] Erika Sen Work Phone: 0(905)782-118255 [place] [address] 09-26-2022 15:56-0500 Diastolic blood pressure 70 mm[Hg] Dr. Erika Sen Work Phone: 8(745)408-170655 [place] [address] 09-26-2022 15:56-0500 Heart rate 94 /min Dr. Erika Sen Work Phone: 4(518)990-810655 [place] [address] 09-26-2022 15:56-0500 Respiratory rate 18 /min Dr. Erika Sen Work Phone: [facility] 09-26-2022 15:56-0500 SaO2% (BldA) [Mass fraction] 98 % Dr. Erika Sen Work Phone: [facility] 09-26-2022 15:56-0500 Systolic blood pressure 116 mm[Hg] Dr. Erika Sen Work Phone: [facility] 07-23-2022 18:31-0500 Body height 149.86 cm [facility] Work Phone: 07-23-2022 18:31-0500 Body mass index (BMI) [Ratio] 27.2 kg/m2 [facility] Work Phone: 07-23-2022 18:31-0500 Body temperature 98.2 [degF] [facility] Work Phone: 07-23-2022 18:31-0500 Body weight 61.23 kg [facility] Work Phone: 07-23-2022 18:31-0500 Diastolic blood pressure 81 mm[Hg] [facility] Work Phone: 07-23-2022 18:31-0500 Heart rate 105 /min [facility] Work Phone: 07-23-2022 18:31-0500 Respiratory rate 16 /min [facility] Work Phone: 07-23-2022 18:31-0500 SaO2% (BldA) [Mass fraction] 98 % [facility] Work Phone: 07-23-2022 18:31-0500 Systolic blood pressure 136 mm[Hg] [facility] Work Phone: 12-31-2021 10:46-0400 Body temperature 98.2 [degF] Chasity Hodge PA-C Work Phone: [facility] 12-31-2021 10:46-0400 Body weight 58.97 kg Chasity Hodge PA-C Work Phone: [facility] 12-31-2021 10:46-0400 Diastolic blood pressure 78 mm[Hg] Chasity Hodge PA-C Work Phone: [facility] 12-31-2021 10:46-0400 Heart rate 96 /min Chasity Hodge PA-C Work Phone: [facility] 12-31-2021 10:46-0400 Respiratory rate 16 /min Chasity Hodge PA-C Work Phone: [facility] 12-31-2021 10:46-0400 Systolic blood pressure 112 mm[Hg] Chasity Hodge PA-C Work Phone: [facility] 12-26-2021 14:20-0400 Body temperature 98.6 [degF] Aris Chow 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 Work Phone: [facility] 12-26-2021 14:20-0400 Body weight 58.51 kg Aris Geraldo 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 Work Phone: [facility] 12-26-2021 14:20-0400 Diastolic blood pressure 70 mm[Hg] Aris Geraldo 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 Work Phone: [facility] 12-26-2021 14:20-0400 Heart rate 103 /min Aris Geraldo 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 Work Phone: [facility] 12-26-2021 14:20-0400 Respiratory rate 21 /min Aris Geraldo 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 Work Phone: [facility] 12-26-2021 14:20-0400 SaO2% (BldA) [Mass fraction] 98 % Aris Geraldo 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 Work Phone: [facility] 12-26-2021 14:20-0400 Systolic blood pressure 110 mm[Hg] Aris Geraldo 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 Work Phone: [facility] 11-07-2021 08:46-0400 Body height 149.[address] Erika Sen Work Phone: [facility] Work Phone: 11-07-2021 08:46-0400 Body mass index (BMI) [Ratio] 25.8 kg/m2 Dr. Erika Sen Work Phone: [facility] Work Phone: 11-07-2021 08:46-0400 Body temperature 97.3 [degF] Dr. Erika Sen Work Phone: [facility] Work Phone: 11-07-2021 08:46-0400 Body weight 58.[address] Erika Sen Work Phone: [facility] Work Phone: 11-07-2021 08:46-0400 Diastolic blood pressure 92 mm[Hg] Dr. Erika Sen Work Phone: [facility] Work Phone: 11-07-2021 08:46-0400 Heart rate 102 /min Dr. Erika Sen Work Phone: [facility] Work Phone: 11-07-2021 08:46-0400 Respiratory rate 18 /min Dr. Erika Sen Work Phone: [facility] Work Phone: 11-07-2021 08:46-0400 SaO2% (BldA) [Mass fraction] 99 % Dr. Erika Sen Work Phone: [facility] Work Phone: 11-07-2021 08:46-0400 Systolic blood pressure 130 mm[Hg] Dr. Erika Sen Work Phone: [facility] Work Phone: 08-09-2021 09:26-0500 Body mass index (BMI) [Ratio] 25.9 kg/m2 Dr. Erika Sen Work Phone: [facility] Work Phone: 08-09-2021 09:26-0500 Body temperature 97.3 [degF] Dr. Erika Sen Work Phone: [facility] Work Phone: 08-09-2021 09:26-0500 Body weight 58.[address] Erika Sen Work Phone: [facility] Work Phone: 08-09-2021 09:26-0500 Diastolic blood pressure 100 mm[Hg] Dr. Erika Sen Work Phone: [facility] Work Phone: 08-09-2021 09:26-0500 Heart rate 98 /min Dr. Erika Sen Work Phone: [facility] Work Phone: 08-09-2021 09:26-0500 Respiratory rate 18 /min Dr. Erika Sen Work Phone: [facility] Work Phone: 08-09-2021 09:26-0500 SaO2% (BldA) [Mass fraction] 99 % Dr. Erika Sen Work Phone: [facility] Work Phone: 08-09-2021 09:26-0500 Systolic blood pressure 160 mm[Hg] Dr. Erika Sen Work Phone: [facility] Work Phone: 02-10-2021 20:44-0400 SaO2% (BldA) [Mass fraction] 97 % CINDY MANLEY [facility] Comment on above: Performed By: #### [id number] #### [facility],[address] [place] [id number] 04-17-2017 15:43-0400 BMI (Body Mass Index) 26.78 kg/m2 Citlali Levy MD [facility] 04-17-2017 15:43-0400 Body Temperature 97.4 [degF] Citlali Levy MD [facility] 04-17-2017 15:43-0400 Body Temperature 97.39 [degF] Citlali Levy MD [facility] 04-17-2017 15:43-0400 BP Diastolic 75 mm[Hg] Citlali Levy MD [facility] 04-17-2017 15:43-0400 BP Systolic 121 mm[Hg] Citlali Levy MD [facility] 04-17-2017 15:43-0400 Height 149.86 cm Citlali Levy MD [facility] 04-17-2017 15:43-0400 Pulse (Heart Rate) 106 /min Citlali Levy MD [facility] 04-17-2017 15:43-0400 Respiratory Rate 16 /min Citlali Levy MD [facility] 04-17-2017 15:43-0400 Weight 60.15 kg Citlali Levy MD [facility] 04-02-2017 07:53-0400 BMI (Body Mass Index) 25.97 kg/m2 Radha Sterling NP [facility] Work Phone: 04-02-2017 07:53-0400 Body Temperature 98.3 [degF] Radha Sterling RETURNED GOODS REPAIRER [facility] Work Phone: 04-02-2017 07:53-0400 BP Diastolic 78 mm[Hg] Radha Sterling RETURNED GOODS REPAIRER [facility] Work Phone: 04-02-2017 07:53-0400 BP Systolic 117 mm[Hg] Radha Sterling RETURNED GOODS REPAIRER [facility] Work Phone: 04-02-2017 07:53-0400 Height 149.86 cm Radha Sterling NP [facility] Work Phone: 04-02-2017 07:53-0400 Pulse (Heart Rate) 101 /min Radha Sterling RETURNED GOODS REPAIRER [facility] Work Phone: 04-02-2017 07:53-0400 Respiratory Rate 20 /min Radha Sterling NP [facility] Work Phone: 04-02-2017 07:53-0400 Weight 58.33 kg Radha Sterling RETURNED GOODS REPAIRER [facility] Work Phone: 03-28-2017 14:50-0400 BMI (Body Mass Index) 26.78 kg/m2 [facility] 03-28-2017 14:50-0400 Body Temperature 97.5 [degF] [facility] 03-28-2017 14:50-0400 BP Diastolic 68 mm[Hg] Rose [facility] 03-28-2017 14:50-0400 BP Systolic 116 mm[Hg] Rose [facility] 03-28-2017 14:50-0400 Height 149.86 cm [facility] 03-28-2017 14:50-0400 Pulse (Heart Rate) 93 /min [facility] 03-28-2017 14:50-0400 Respiratory Rate 16 /min [facility] 03-28-2017 14:50-0400 Weight 60.15 kg [facility] 02-20-2017 11:07-0400 BMI (Body Mass Index) 26.09 kg/m2 Bhumika Cardenas [facility] 02-20-2017 11:07-0400 Body Temperature 98.7 [degF] Bhumika Cardenas RETURNED GOODS REPAIRER [facility] 02-20-2017 11:07-0400 BP Diastolic 70 mm[Hg] Bhumika Cardenas RETURNED GOODS REPAIRER [facility] 02-20-2017 11:07-0400 BP Systolic 104 mm[Hg] Bhumika Cardensa RETURNED GOODS REPAIRER [facility] 02-20-2017 11:07-0400 Height 149.86 cm Bhumika Cardenas NP [facility] 02-20-2017 11:07-0400 Pulse (Heart Rate) 97 /min Bhumika Cardenas RETURNED GOODS REPAIRER [facility] 02-20-2017 11:07-0400 Respiratory Rate 16 /min Bhumika Cardenas RETURNED GOODS REPAIRER [facility] 02-20-2017 11:07-0400 Weight 58.61 kg Bhumika Cardenas NP [facility] 01-15-2017 10:06-0400 BMI (Body Mass Index) 27.55 kg/m2 Radha Sterling NP [facility] Work Phone: 01-15-2017 10:06-0400 Body Temperature 98.4 [degF] Radha Sterling RETURNED GOODS REPAIRER [facility] Work Phone: 01-15-2017 10:06-0400 BP Diastolic 68 mm[Hg] Radha Sterling RETURNED GOODS REPAIRER [facility] Work Phone: 01-15-2017 10:06-0400 BP Systolic 113 mm[Hg] Radha Sterling RETURNED GOODS REPAIRER [facility] Work Phone: 01-15-2017 10:06-0400 Height 149.86 cm Radha Sterling NP [facility] Work Phone: 01-15-2017 10:06-0400 Pulse (Heart Rate) 92 /min Radha Sterling NP [facility] Work Phone: 01-15-2017 10:06-0400 Respiratory Rate 18 /min Radha Sterling NP [facility] Work Phone: 01-15-2017 10:060400 Weight 61.87 kg Radha Sterling NP [facility] Work Phone: 01-02-2017 13:23-0400 [...] 11-28-2024 Non-patient / Non-visit Dr. Damien Rosario [facility] Work Phone: Start: 11-27-2024 ambulatory Minnie Hodge Fa cility:[facility] Start: 11-27-2024 End: 11-28-2024 Evaluation and management of inpatient Dr. Zaida Hoff MD -Intensive Care Unit Work Phone: Start: 11-26-2024 End: 11-26-2024 Emergency department patient visit Minnie Hodge -Emergency Department Work Phone: Start: 11-11-2024 End: 11-11-2024 Patient encounter procedure Emil Overton [facility] Work Phone: Start: 11-11-2024 End: 11-11-2024 ambulatory Minnie Hodge Facility:[facility] Start: 11-04-2024 End: 11-04-2024 Refill Veronika Dorado 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 Work Phone: Endocrinology Comment on above: Refill Request Start: 10-04-2024 End: 10-04-2024 Emergency department patient visit Minnie Hodge -Emergency Department Work Phone: Start: 09-13-2024 Encounter for gynecological examination (general) (routine) without abnormal findings [facility] Start: 09-13-2024 End: 09-13-2024 Patient encounter procedure Maddy MAN -[facility] @ Start: 09-13-2024 End: 09-13-2024 Patient encounter status Maddy MAN [facility] Start: 09-13-2024 End: 09-13-2024 ambulatory Minnie Hodge Facility:[facility] Start: 08-19-2024 End: 08-19-2024 Telephone encounter Evelyn Carr MD Work Phone: [address] [place] [address] Start: 08-18-2024 End: 08-18-2024 ambulatory JUAN CARLOS Jimenez [facility] Facility:[facility] Start: 08-18-2024 End: 08-18-2024 Patient encounter procedure [...] 06-15-2024 End: 06-15-2024 Telephone encounter Veronika Dorado APRN.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 MANAGER Work Phone: Endocrinology Comment on above: Medication Problem Start: 05-13-2024 End: 05-14-2024 ambulatory Minnie Hodge Facility:[facility] Start: 05-12-2024 End: 05-12-2024 Emergency department patient visit Rony Delgadillo Facility:[facility] Start: 05-07-2024 End: 05-07-2024 ambulatory [facility] Facility:[facility] Start: 05-07-2024 End: 05-07-2024 Office outpatient visit [...] For Provide r Statement Type 1 diabetes joy itus without complication [...] 03-25-2024 Subsequent hospital visit by physician Elly [facility] Work Phone: Radiology Comment on above: Pain [R52] Start: 03-25-2024 End: 03-25-2024 ambulatory JUAN CARLOS CANDELARIO Facility:[facility] Start: 03-25-2024 End: 03-25-2024 Patient encounter procedure Rosa Isela Gonzalez APRN.CNP Work Phone: [facility] Comment on above: Pain (Primary Dx) Start: 03-10-2024 End: 03-10-2024 ambulatory EVELYN CARR Facility:[facility] Start: 03-10-2024 End: 03-10-2024 Patient encounter procedure Evelyn Carr MD Work Phone: OB/Gynecology Comment on above: Insertion of implant able subdermal contraceptive (Primary Dx) Start: 03-01-2024 End: 03-01-2024 ambulatory EVELYN CARR Facility:[facility] Start: 03-01-2024 Encounter for genera l adult medical examination without abnormal findings EVELYN CARR [facility] Start: 03-01-2024 End: 03-01-2024 Patient encounter [...] encounter status Evelyn Carr MD Work Phone: [facility] Start: 02-04-2024 End: 02-04-2024 ambulatory Veronika Dorado [...] and evaluation Veronika Dorado APRN.CNP Work Phone: [facility] Start: 01-27-2024 End: 01-27-2024 ambulatory [facility] Facility:[facility] Start: 01-27-2024 End: 01-27-2024 Patient encounter procedure Chasity Hodge PA-C Work Phone: [facility] Teresita Longo Comment on above: Well adult exam (Cira robbie Dx); Type 1 diabetes mellitus without complication (HCC); Mild intermittent asthma without complication; Encounter for immunization; ARELIS (generalized anxiety disorder) Start: 01-27-2024 End: 01-27-2024 Patient encounter status Chasity Hodge PA-C Work Phone: [facility] Work Phone: Start: 01-07-2024 End: 01-07-2024 Nursing evaluation of patient and report Jackeline Shukla RN Work Phone: Endocrinology Comment on above: Type 1 diabetes joy itus without complication (HCC) (Primary Dx) Start: 01-07-2024 End: 01-07-2024 ambulatory JUAN CARLOS CANDELARIO Facility:[facility] Start: 12-25-2023 Telephone encounter Chasity trotter PA-C Work Phone: [facility] [place] Comment on above: Orders Start: 12-24-2023 End: 12-24-2023 ambulatory CHASITY HODGE Facility:[facility] Start: 12-24-2023 End: 12-24-2023 Patient encounter procedure Chasity Hodge PA-C Work Phone: [facility] [place] Comment on above: Type 1 diabetes joy itus with hyperglycemia (HCC) (Primary Dx); Encounter for lipid screening for cardiovascular disease Start: 11-28-2023 [facility] Work Phone: Start: 11-27-2023 Non-[facility] Work Phone: Start: 11-26-2023 Non-patient / Non-visit Minnie [facility] Start: 11-26-2023 Non-patient / Non-visit [facility] Start: 11-26-2023 End: 11-28-2023 [facility] Work Phone: Start: 11-26-2023 Non-patient / Non-visit [facility] Inpatient Phys[facility] Work Phone: Start: 11-11-2023 End: 11-11-2023 Emergency department patient visit [facility] Work Phone: Start: 10-17-2023 Non-patient / Non-visit [facility] Inpatient Physicians Work Phone: Start: 10-16-2023 Non-patient / Non-visit [facility] In[facility] Work Phone: Start: 10-16-2023 End: 10-17-2023 [facility] Work Phone: Start: 08-23-2023 End: 08-23-2023 Emergency department patient visit [facility]Emer[facility] Work Phone: Start: 08-13-2023 End: 08-13-2023 ambulatory [facility] Work Phone: Start: 08-13-2023 End: 08-13-2023 [facility] Work Phone: Start: 05-12-2023 End: 05-12-2023 Patient encounter procedure [facility] Work Phone: Start: 04-07-2023 End: 04-07-2023 Patient encounter procedure Arely Velez APRN.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 MANAGER Work Phone: [facility] Comment on above: Exposure to SARS-ass ociated coronavirus (Primary Dx); Sore throat Start: 03-27-2023 Telephone encounter Juan Carlos Candelario MD Work Phone: [facility] Comment on above: Fax last OV note Start: 03-04-2023 Dr. Erika riddle Work Phone: [facility] In[facility] Physicians Work Phone: Start: 03-03-2023 End: 03-05-2023 Evaluation and management of inpatient Dr. Erika Sen Work Phone: [facility] Work Phone: Start: 03-03-2023 End: 03-05-2023 Dr. Erika Sen Work Phone: [facility]-Intensive Care Unit Work Phone: Start: 03-03-2023 End: 03-03-2023 Patient encounter procedure Chasity Hodge PA-C Work Phone: [facility] Comment on above: Type 1 diabetes joy itus without complication (HCC) (Primary Dx); Nausea Start: 03-01-2023 End: 03-02-2023 Dr. Erika Sen Work Phone: [facility]-Emergency Department Work Phone: Start: 02-17-2023 Dr. Erika riddle Work Phone: [facility] Work Phone: Start: 02-16-2023 Non-patient / Non-visit Dr. Carol Sen Work Phone: [facility] Work Phone: Start: 02-16-2023 Dr. Erika riddle Work Phone: [facility] Work Phone: Start: 02-15-2023 End: 02-17-2023 Evaluation and management of inpatient Dr. E[facility] Work [facility] Start: 02-15-2023 End: 02-17-2023 Dr. Erika Sen Work Phone: [facility]-Medical Surgical 3 Work Phone: Start: 01-16-2023 Telephone encounter Kaylen Richardson corbinozzy PSYCHIATRIC Work Phone: Psychology Comment on above: bh consult Start: 01-16-2023 End: 01-16-2023 Patient encounter procedure Chasity Hodge PA-C Work Phone: [facility] Comment on above: Depression, unspecif ied depression type (Primary Dx); Bipolar affective disorder, remission status unspecified (HCC) Start: 01-13-2023 End: 01-13-[address] Erika Sen Work Phone: [facility] Endocrinology Work Phone: Start: 01-13-2023 End: 01-13-2023 Dr. Erika Sen Work Phone: [facility] Endocrinology Work Phone: Start: 01-06-2023 Refill Juan Carlos quezada MD Work Phone: [facility] Comment on above: Refill Request Start: 12-27-2022 Non-patient / Non-visit Dr. Carol Sen Work Phone: [facility] Work Phone: Start: 12-27-2022 Dr. Erika riddle Work Phone: [facility] Work Phone: Start: 12-26-2022 Non-patient / Non-visit Dr. Carol Sen Work Phone: [facility] Work Phone: Start: 12-26-2022 Dr. Erika riddle Work Phone: [facility] Work Phone: Start: 12-26-2022 Non-patient / Non-visit Dr. Carol Sen Work Phone: [facility] Start: 12-26-2022 Dr. Erika riddle Work Phone: [facility] Start: 12-25-2022 Non-patient / Non-visit Dr. Carol Sen Work Phone: [facility] Work Phone: Start: 12-25-2022 Dr. Erika riddle Work Phone: [facility] Work Phone: Start: 12-24-2022 Non-patient / Non-visit Dr. Carol Sen Work Phone: [facility] Start: 12-24-2022 Dr. Erika riddle Work Phone: [facility] Start: 12-24-2022 End: 12-27-2022 Evaluation and management of inpatient Dr. Erika Sen Work Phone: [facility]-Intensive Care Unit Start: 12-24-2022 End: 12-27-2022 Dr. Erika Sen Work Phone: [facility]-Medical Surgical 3 Work Phone: Start: 11-23-2022 Non-patient / Non-visit Dr. Carol Sen Work Phone: [facility] Inpatient Physicians Start: 11-23-2022 Dr. Erika riddle Work Phone: [facility] Work Phone: Start: 11-22-2022 Non-patient / Non-visit Dr. Carol Sen Work Phone: [facility] Inpatient Physicians Start: 11-22-2022 Dr. Erika riddle Work Phone: [facility] Work Phone: Start: 11-21-2022 End: 11-23-2022 Evaluation and management of inpatient [facility]. Erika [facility] Start: 11-21-2022 End: 11-23-2022 Dr. Erika Sen [facility] Work Phone: Start: 09-26-2022 End: 09-26-[address] Erika Sen Work Phone: [facility] Endocrinology Start: 07-23-2022 End: 07-23-2022 Emergency department patient visit [facility]Emergency Department Start: 12-31-2021 End: 12-31-2021 Patient encounter procedure Chasity Hodge PA-C Work Phone: [facility] [place] Comment on above: Upper back strain, i nitial encounter (Primary Dx) Start: 12-26-2021 End: 12-26-2021 Patient encounter procedure Aris Chow APRN.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 MANAGER Work Phone: [facility] Comment on above: Acute midline low ba ck pain without sciatica (Primary Dx) Start: 11-07-2021 End: 11-07-[address] Erika Sen Work Phone: [facility] Endocrinology Start: 08-09-2021 End: 08-09-[address] Erika Sen Work Phone: [facility] Endocrinology Start: 02-10-2021 End: 02-12-2021 Evaluation and management of inpatient CINDY MANLEY [facility] Start: 05-05-2020 End: 05-05-2020 [facility]: [facility] Comment on [...] lumbosac ral 2/3 views Rosa Isela Gonzalez APRN.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 MANAGER Work Phone: Start: 03-10-2024 UA DIP,URINE HCG [...] Comment: URIN ALYSIS Performed By: #### [id number] #### [facility],[address] [place] [address] Start: 05-05-2020 Radex hand minimum 3 views Judit Joe APRN.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 MANAGER Work Phone: Start: 03-04-2019 Adult depression screening assessment Aris Chow APRN.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 MANAGER Work Phone: Start: 04-17-2017 End: 04-21-2017 Etonogestrel [...] 04-03-2017 *CMP Complete Metabolic Panel Radha Sterling [employer]URNED [employer] REPAIRER Work Phone: Start: 04-02-2017 End: 04-03-2017 Hemoglobin A1c/Hemoglobin.total in Blood Radha Sterling [employer] REPAIRER Work Phone: Start: 04-02-2017 End: 04-03-2017 *CMP Complete Metabolic Panel Radha Sterling [employer]URNED [employer] REPAIRER Work Phone: Start: 04-02-2017 End: 04-03-2017 HbA1c Radha J Hallie [employer] REPAIRER Work Phone: Start: 02-20-2017 Contraception care education Contraception counseling Citlali Levy MD Start: 02-20-2017 End: 02-20-2017 Urine test visual color cmprsn shantel Cardenas [employer] REPAIRER Work Phone: Start: 02-20-2017 Contraception care education Contraception counseling Citlali Levy MD Start: 02-20-2017 End: 02-20-2017 Urine test visual color cmprsn shantel Arevalos [employer]URNED [employer] REPAIRER Work Phone: Start: 02-20-2017 End: 02-20-2017 Urine, test (choriogonadotropin presence) Bhumika Cardenas [employer]ED [employer] REPAIRER Work Phone: Start: 01-15-2017 End: 01-15-2017 Thyrotropin [Units/volume] in Serum or Plasma Radha Sterling RETURNED [employer] REPAIRER Work Phone: Start: 01-15-2017 End: 01-15-2017 Thyroid stimulating hormone (TSH) Radha Sterling [employer]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 Erika riddle Work Phone: Plan of Treatment Date Care Activity Detail Author Start: 03-01-2027 Screening for malignant neoplasm of cervix Cervical Cancer Screening [facility] Start: 01-26-2025 Annual PCP Team Chronic Disease Visit Annual PCP Team Chronic Disease Visit [facility] Start: 01-26-2025 Covid-19 Vaccine () Covid-19 Vaccine () [facility] Comment on above: Postponed from 03/21/2023 (Declined at t his time) Start: 01-26-2025 Depression Screening Depression Screening [facility] Start: 01-26-2025 Diabetic foot examination Diabetic Foot Exam [facility] Start: 01-26-2025 HIV screening HIV Screening [facility] Comment on above: Postponed from 2016 (Declined at t his time) Start: 01-18-2025 Urine microalbumin profile [facility] Start: 12-23-2024 Annual PCP Team Chronic Disease Visit Annual PCP Team Chronic Disease Visit [facility] Start: 12-23-2024 Hepatitis B screening Urine Albumin:Creatinine Ratio [facility] Start: 12-23-2024 Hepatitis B surface antibody level LDL Cholesterol [facility] Start: 11-28-2024 Patient discharge [facility] Start: 11-28-2024 [facility] Start: 11-27-2024 Care of central venous catheter [facility] Start: 11-27-2024 Application of intermittent pneumatic compression device [facility] Start: 11-27-2024 End: 11-27-2024 Following clinical pathway protocol [facility] Start: 11-27-2024 Lab findings surveillance [facility] Start: 11-27-2024 Patient education [facility] Start: 11-27-2024 Care regimes management [facility] Start: 11-27-2024 End: 11-27-2024 Notification of physician [facility] Start: 11-27-2024 Assessment of risk of venous thromboembolism [facility] Start: 11-27-2024 Continuous pulse oximetry [facility] Start: 11-27-2024 Insertion of catheter into peripheral vein [facility] Start: 11-27-2024 Measuring intake and output [facility] Start: 11-27-2024 Providing care according to standard [facility] Start: 11-27-2024 Vital signs measurements [facility] Start: 11-27-2024 End: 11-27-2024 [facility] Start: 11-27-2024 Admission procedure [facility] Start: 11-27-2024 Hospital admission, emergency, from emergency room, medical nature [facility] Start: 11-27-2024 End: 11-27-2024 [facility] Start: 11-27-2024 Consultation [facility] Start: 11-26-2024 End: 11-27-2024 [facility] Start: 10-04-2024 [facility] Start: 07-29-2024 End: 07-29-2024 Patient encounter procedure 07/29/2024 9:40 AM EST Office Visit [facility] [place] [address] [facility] [place] [address] Chasity Hodge PA-C [address] [facility] [place] [id number] 6 month f/u [facility] [place] Comment on above: 6 month f/u Start: 07-21-2024 End: 10-20-2024 Comprehensive metabolic 2000 panel - Serum or Plasma COMPREHENSIVE METABOLIC PANEL Lab Routine Type 1 diabetes mellitus without complication (HCC) Expected: 07/21/2024, Expires: 10/20/2024 [facility] Work Phone: Comment on above: Expected: 07/21/2024, Expires: Start: 07-21-2024 End: 10-20-2024 Hemoglobin A1c in Blood HEMOGLOBIN A1C Lab Routine Type 1 diabetes mellitus without complication (HCC) Expected: 07/21/2024, Expires: 10/20/2024 [facility] Comment on above: Expected: 07/21/2024, Expires: Start: 07-21-2024 End: 10-20-2024 LIPID PANEL, NONFASTING LIPID PANEL, NONFASTING Lab Routine Type 1 diabetes mellitus without complication (HCC) Expected: 07/21/2024, Expires: 10/20/2024 [facility] Comment on above: Expected: 07/21/2024, Expires: Start: 07-21-2024 End: 10-20-2024 Microalbumin/Creatinine [Mass Ratio] in Urine ALBUMIN/CREATININE RATIO, URINE Lab Routine Type 1 diabetes mellitus without complication (HCC) Expected: 07/21/2024, Expires: 10/20/2024 [facility] Comment on above: Expected: 07/21/2024, Expires: Start: 06-09-2024 End: 06-09-2024 Patient encounter procedure 06/09/2024 11:45 AM EST Office Visit Endocrinology [address] [facility] [place] [address] Veronika Dorado, 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 [address] [place] [address] 4 mo f/up Endocrinology Comment on above: 4 mo f/up Start: 04-14-2024 End: 04-14-2024 Nursing evaluation of patient and report 04/14/2024 1:00 PM EDT Nurse Visit Endocrinology [address] [place] [address] Jackeline Shukla, RN [address] [address] Insulin pump training Endocrinology Comment on above: Insulin pump training Start: 03-25-2024 Hemoglobin A1c measurement HbA1C [facility] Start: 03-21-2024 Covid-19 Vaccine ( season) Covid-19 Vaccine () [facility] Start: 03-21-2024 Covid-19 Vaccine () Covid-19 Vaccine () [facility] Start: 03-21-2024 Influenza vaccination [facility] Start: 03-16-2024 End: 03-16-2024 Nursing evaluation of patient and report 03/16/2024 1:00 PM EDT Nurse Visit Endocrinology [address] [place] [address] Jackeline Shukla, RN [address] [address] Insulin pump training Endocrinology Comment on above: Insulin pump training Start: 03-10-2024 End: 03-10-2024 Patient encounter procedure 03/10/2024 10:30 AM EDT Office Visit OB/Gynecology [address] [place], [place] [id number] Evelyn Carr MD [address] [place] [address] Encounter for removal and reinsertion of Nexplanon [Z30.46] OB/Gynecology Comment on above: Encounter for removal and reinsertion of Nexplanon [Z30.46] Start: 03-03-2024 ANNUAL PCP TEAM CHRONIC DISEASE VISIT ANNUAL PCP TEAM CHRONIC DISEASE VISIT [facility] Start: 03-01-2024 End: 05-31-2024 Hepatitis B virus surface Ag [Presence] in Serum HEPATITIS B SURFACE ANTIGEN Lab Routine Screen for STD (sexually transmitted disease) Expected: 03/01/2024, Expires: 05/31/2024 [facility] Comment on above: Expected: 03/01/2024, Expires: 4 Start: 03-01-2024 End: 05-31-2024 Hepatitis C virus Ab [Presence] in Serum HEPATITIS C ANTIBODY IA WITH CONFIRMATION Lab Routine Screen for STD (sexually transmitted disease) Expected: 03/01/2024, Expires: 05/31/2024 [facility] Comment on above: Expected: 03/01/2024, Expires: 4 Start: 03-01-2024 End: 05-31-2024 HIV 1+2 Ab [Presence] in Serum or Plasma by Immunoassay HIV 1/2 COMBO WITH REFLEX TO DIFFERENTIATION Lab Routine Screen for STD (sexually transmitted disease) Expected: 03/01/2024, Expires: 05/31/2024 [facility] Comment on above: Expected: 03/01/2024, Expires: Start: 03-01-2024 End: 05-31-2024 SYPHILIS TOTAL W/REFLEX SYPHILIS TOTAL W/REFLEX Lab Routine Screen for STD (sexually transmitted disease) Expected: 03/01/2024, Expires: 05/31/2024 [facility] Work Phone: Comment on above: Expected: 03/01/2024, Expires: 4 Start: 03-01-2024 End: 03-01-2024 Patient encounter procedure 03/01/2024 11:10 AM EDT Office Visit OB/Gynecology [address] [place] [address] Evelyn Carr MD [address] [place] [id number] Well adult exam [Z00.00] OB/Gynecology Comment on above: Well adult exam [Z00.00] Start: 02-09-2024 End: 02-09-2024 Patient encounter procedure 02/09/2024 8:30 AM EDT Office Visit [facility] Ophthalmology [address] [place] [address] Agueda Olivera, OD [address] [place] [address] Type 1 diabetes mellitus without complication (HCC) [E10.9] Ophthalmology Comment on above: Type 1 diabetes mellitus without complic ation (HCC) [E10.9] Start: 02-04-2024 End: 02-04-2024 Patient encounter procedure 02/04/2024 10:15 AM EDT Office Visit Endocrinology [address] [place] [address] Veronika Dorado APRN.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 MANAGER [address] [place] [address] Type 1 diabetes mellitus with hyperglycemia (HCC) [E10.65] Endocrinology Comment on above: Type 1 diabetes mellitus with hyperglyce sha (HCC) [E10.65] Start: 01-27-2024 End: 01-27-2024 Patient encounter procedure 01/27/2024 9:40 AM EDT Office Visit [facility] [place] [address] [place] [address] Chasity Hodge PA-C [address] [place] [address] Physical & Anel [facility] [place] Comment on above: Physical & Anel Start: 01-17-2024 ANNUAL PCP TEAM CHRONIC DISEASE VISIT ANNUAL PCP TEAM CHRONIC DISEASE VISIT [facility] Start: 01-07-2024 End: 01-07-2024 Nursing evaluation of patient and report Endocrinology Comment on above: Type 1 diabetes mellitus with hyperglyce sha (HCC) [E10.65] Start: 11-28-2023 Patient discharge [facility] Start: 11-28-2023 Care regimes management [facility] Start: 11-28-2023 Notification of physician [facility] Start: 11-28-2023 [facility] Start: 11-27-2023 Lab findings surveillance [facility] Start: 11-27-2023 Following clinical pathway protocol [facility] Start: 11-27-2023 Notification of physician [facility] Start: 11-27-2023 Patient education [facility] Start: 11-27-2023 Vital signs measurements [facility] Start: 11-27-2023 [facility] Start: 11-27-2023 Blood chemistry [facility] Start: 11-27-2023 Peripherally inserted central catheter care [facility] Start: 11-27-2023 Blood chemistry [facility] Start: 11-27-2023 Blood chemistry [facility] Start: 11-26-2023 Blood chemistry [facility] Start: 11-26-2023 Blood chemistry [facility] Start: 11-26-2023 Blood chemistry [facility] Start: 11-26-2023 Enteric precautions [facility] Start: 11-26-2023 End: 11-26-2023 Following clinical pathway protocol [facility] Start: 11-26-2023 Gas panel - Arterial blood [facility] Start: 11-26-2023 Lab findings surveillance [facility] Start: 11-26-2023 Notification of physician [facility] Start: 11-26-2023 Patient education [facility] Start: 11-26-2023 Urine test [facility] Start: 11-26-2023 Vital signs measurements [facility] Start: 11-26-2023 End: 11-27-2023 [facility] Start: 11-26-2023 Blood chemistry [facility] Start: 11-26-2023 Referral to general surgeon [facility] Start: 11-26-2023 Clostridioides difficile DNA [Presence] in Unspecified specimen by JEANNETTE with probe detection [facility] Start: 11-26-2023 Gastrointestinal pathogens panel - Stool by JEANNETTE with probe detection [facility] Start: 11-26-2023 Lactoferrin [Presence] in Stool by Immunoassay [facility] Start: 11-26-2023 Admission procedure [facility] Start: 11-11-2023 [facility] Start: 10-17-2023 Blood chemistry [facility] Start: 10-17-2023 Blood chemistry [facility] Start: 10-17-2023 Patient discharge [facility] Start: 10-17-2023 Care planning and problem solving actions [facility] Start: 10-17-2023 Blood chemistry [facility] Start: 10-17-2023 Blood chemistry [facility] Start: 10-17-2023 Blood chemistry [facility] Start: 10-16-2023 Blood chemistry [facility] Start: 10-16-2023 Assessment of risk of venous thromboembolism [facility] Start: 10-16-2023 Continuous pulse oximetry [facility] Start: 10-16-2023 End: 10-16-2023 Following clinical pathway protocol [facility] Start: 10-16-2023 Insertion of catheter into peripheral vein [facility] Start: 10-16-2023 Lab findings surveillance [facility] Start: 10-16-2023 Measuring intake and output [facility] Start: 10-16-2023 Notification of physician [facility] Start: 10-16-2023 Patient education [facility] Start: 10-16-2023 Providing care according to standard [facility] Start: 10-16-2023 Vital signs measurements [facility] Start: 10-16-2023 [facility] Start: 10-16-2023 Blood chemistry [facility] Start: 10-16-2023 Admission procedure [facility] Start: 10-16-2023 [facility] [facility] Start: 07-21-2023 Behavioral Health Screening Behavioral Health Screening [facility] Start: 07-20-2023 Glaucoma screening Dilated Retinal Exam [facility] Start: 03-21-2023 Covid-19 Vaccine ( season) Covid-19 Vaccine () [facility] Start: 03-21-2023 Influenza vaccination [facility] Start: 03-05-2023 Patient discharge [facility] Start: 03-03-2023 Ambulation without limitation [facility] Start: 03-03-2023 Assessment of risk of venous thromboembolism [facility] Start: 03-03-2023 Care regimes management [facility] Start: 03-03-2023 Continuous pulse oximetry [facility] Start: 03-03-2023 End: 03-03-2023 Following clinical pathway protocol [facility] Start: 03-03-2023 Insertion of catheter into peripheral vein [facility] Start: 03-03-2023 Measuring intake and output [facility] Start: 03-03-2023 Notification of physician [facility] Start: 03-03-2023 Patient education [facility] Start: 03-03-2023 Patient referral to dietitian [facility] Start: 03-03-2023 Providing care according to standard [facility] Start: 03-03-2023 Vital signs measurements [facility] Start: 03-03-2023 [facility] Start: 03-03-2023 Verification routine [facility] Start: 03-03-2023 Admission procedure [facility] Start: 03-02-2023 Gas panel - Venous blood [facility] Start: 03-01-2023 Assay of lactate [facility] Start: 03-01-2023 Assay of lipase [facility] Start: 03-01-2023 Basic metabolic panel calcium total [facility] Start: 03-01-2023 Blood count complete auto&auto difrntl wbc [facility] Start: 03-01-2023 Blood gases any combination ph pco2 po2 co2 hco3 [facility] Start: 03-01-2023 Ct abdomen & pelvis w/contrast material [facility] Start: 03-01-2023 Emergency department visit low/moder severity [facility] Start: 03-01-2023 Gluc bld gluc mntr dev cleared fda spec home use [facility] Start: 03-01-2023 Hepatic function panel [facility] Start: 03-01-2023 Ketone bodies serum qualitative [facility] Start: 03-01-2023 Radiologic exam chest 2 views [facility] Start: 03-01-2023 Ther proph/dx njx iv push single/1st sbst/drug [facility] Start: 03-01-2023 Therapeutic injection iv push each new drug [facility] Start: 03-01-2023 Urine test visual color cmprsn meths [facility] Start: 03-01-2023 Urnls dip stick/tablet reagent auto microscopy [facility] Start: 02-17-2023 Patient discharge [facility] Start: 02-16-2023 [facility] Start: 02-16-2023 Notification of physician [facility] Start: 02-15-2023 Ambulation without limitation [facility] Start: 02-15-2023 Assessment of risk of venous thromboembolism [facility] Start: 02-15-2023 Care regimes management [facility] Start: 02-15-2023 Inhalation therapy procedure [facility] Start: 02-15-2023 Insertion of catheter into peripheral vein [facility] Start: 02-15-2023 Measuring intake and output [facility] Start: 02-15-2023 Oxygen therapy [facility] Start: 02-15-2023 Patient education [facility] Start: 02-15-2023 Patient referral to dietitian [facility] Start: 02-15-2023 Providing care according to standard [facility] Start: 02-15-2023 Vital signs measurements [facility] Start: 02-15-2023 [facility] Start: 02-15-2023 Care of central venous catheter [facility] Start: 02-15-2023 Following clinical pathway protocol [facility] Start: 02-15-2023 Verification routine [facility] Start: 02-15-2023 Admission procedure [facility] Start: 12-31-2022 ANNUAL PCP TEAM CHRONIC DISEASE VISIT ANNUAL PCP TEAM CHRONIC DISEASE VISIT [facility] Start: 12-27-2022 Patient discharge [facility] Start: 12-26-2022 Provision of activity privileges [facility] Start: 12-24-2022 [facility] Start: 12-24-2022 Consultation [facility] Start: 12-24-2022 Ambulation without limitation [facility] Start: 12-24-2022 Assessment of risk of venous thromboembolism [facility] Start: 12-24-2022 Continuous pulse oximetry [facility] Start: 12-24-2022 End: 12-24-2022 Following clinical pathway protocol [facility] Start: 12-24-2022 Insertion of catheter into peripheral vein [facility] Start: 12-24-2022 Measuring intake and output [facility] Start: 12-24-2022 Notification of physician [facility] Start: 12-24-2022 Oxygen therapy [facility] Start: 12-24-2022 Patient education [facility] Start: 12-24-2022 Patient referral to [facility] Start: 12-24-2022 Providing care according to standard [facility] Start: 12-24-2022 Vital signs measurements [facility] Start: 12-24-2022 [facility] Start: 12-24-2022 Verification routine [facility] Start: 12-24-2022 Admission procedure [facility] Start: 12-24-2022 Consultation [facility] Start: 12-24-2022 [facility] Start: 11-25-2022 Blood chemistry [facility] Start: 11-24-2022 Blood chemistry [facility] Start: 11-23-2022 Patient discharge [facility] Start: 11-22-2022 [facility] Start: 11-22-2022 End: 11-22-2022 [facility] Start: 11-22-2022 Care regimes management [facility] Start: 11-22-2022 Notification of physician [facility] Start: 11-21-2022 Catheterization of vein [facility] Start: 11-21-2022 Medication education [facility] Start: 11-21-2022 Assessment of risk of venous thromboembolism [facility] Start: 11-21-2022 Continuous pulse oximetry [facility] Start: 11-21-2022 End: 11-21-2022 Following clinical pathway protocol [facility] Start: 11-21-2022 Incentive spirometry [facility] Start: 11-21-2022 Inhalation therapy procedure [facility] Start: 11-21-2022 Insertion of catheter into peripheral vein [facility] Start: 11-21-2022 Introduction of urinary catheter [facility] Start: 11-21-2022 Lab findings surveillance [facility] Start: 11-21-2022 Measuring intake and output [facility] Start: 11-21-2022 Notification of physician [facility] Start: 11-21-2022 Oxygen therapy [facility] Start: 11-21-2022 Patient education [facility] Start: 11-21-2022 Patient referral to [facility] Start: 11-21-2022 Providing care according to standard [facility] Start: 11-21-2022 Provision of activity privileges [facility] Start: 11-21-2022 Referral to service [facility] Start: 11-21-2022 Vital signs measurements [facility] Start: 11-21-2022 [facility] Start: 11-21-2022 Urine test [facility] Start: 11-21-2022 [facility] Start: 11-21-2022 Verification routine [facility] Start: 11-21-2022 Admission procedure [facility] Start: 07-21-2022 DEPRESSION ASSESSMENT DEPRESSION ASSESSMENT [facility] Start: 06-07-2022 ANNUAL PCP TEAM CHRONIC DISEASE VISIT ANNUAL PCP TEAM CHRONIC DISEASE VISIT [facility] Start: 06-07-2022 COVID-19 VACCINE (#1) COVID-19 VACCINE (#1) [facility] Comment on above: Postponed from 2003 (Declined at t his time) Start: 03-21-2022 Influenza vaccination INFLUENZA (Season Ended) [facility] Start: 11-01-2020 Hemoglobin A1c/Hemoglobin.total in Blood HBA1C [facility] Start: 03-04-2020 Adult depression screening assessment DEPRESSION SCREENING [facility] Start: 2019 PAP TESTING PAP TESTING [facility] Start: 2019 Screening for malignant neoplasm of cervix [facility] Start: 01-09-2019 CHLAMYDIA SCREENING (18-24) CHLAMYDIA SCREENING (18-24) [facility] Start: 01-09-2019 GC (GONORRHEA) SCREENING (18-24) GC (GONORRHEA) SCREENING (18-24) [facility] Start: 01-09-2019 PNEUMOCOCCAL (2 - PCV) PNEUMOCOCCAL (2 - PCV) [facility] Start: 01-09-2019 Pneumococcal vaccination [facility] Start: 07-03-2017 End: 07-03-2017 Appointment Appointment [facility] Work Phone: Start: 04-11-2017 End: 04-11-2017 Appointment Appointment [facility] Start: 04-02-2017 End: 04-03-2017 *CMP Complete Metabolic Panel *CMP Complete Metabolic Panel [facility] Work Phone: Start: 04-02-2017 End: 04-02-2017 *Microalbumin, Creatine Ratio, rand urine *Microalbumin, Creatine Ratio, rand urine [facility] Work Phone: Start: 04-02-2017 End: 04-03-2017 Hemoglobin A1c/Hemoglobin.total mass fraction (Bld) *HgA1C [facility] Work Phone: Start: 04-02-2017 End: 04-02-2017 Appointment Appointment [facility] Start: 04-02-2017 End: 04-03-2017 *CMP Complete Metabolic Panel *CMP Complete Metabolic Panel [facility] Work Phone: Start: 04-02-2017 End: 04-02-2017 *Microalbumin, Creatine Ratio, rand urine *Microalbumin, Creatine Ratio, rand urine [facility] Work Phone: Start: 04-02-2017 End: 04-03-2017 HbA1c *HgA1C [facility] Work Phone: Start: 03-28-2017 End: 03-28-2017 Appointment Appointment [facility] Start: 03-28-2017 End: 03-28-2017 Bacteria genital culture *CUV - Culture, VAG/CX [facility] Work Phone: Start: 03-28-2017 End: 03-28-2017 Bacteria genital culture *CUV - Culture, VAG/CX [facility] Start: 02-26-2017 End: 02-26-2017 Appointment Appointment [facility] Work Phone: Start: 02-20-2017 End: 02-20-2017 Appointment Appointment [facility] Start: 02-14-2017 End: 02-14-2017 Appointment Appointment [facility] [...] Hepatitis B surface antibody level LDL CHOLESTEROL [facility] Start: 2016 HIV SCREENING HIV SCREENING [facility] Start: 2016 HIV screening HIV Screening [facility] Start: 2016 SPIROMETRY SPIROMETRY [facility] Start: 2014 MENINGOCOCCAL B: Consider based on risk (1 of 2 - Patient Seeks Protection) MENINGOCOCCAL B: Consider based on risk (1 of 2 - Patient Seeks Protection) [facility] Start: 2012 PEDS TO ADULT TRANSITION ANNUAL ASSESSMENT PEDS TO ADULT TRANSITION ANNUAL ASSESSMENT [facility] Start: 2010 PEDS TO ADULT TRANSITION INITIAL DISCUSSION PEDS TO ADULT TRANSITION INITIAL DISCUSSION [facility] Start: 2008 3 comp foot exam completed DIABETIC FOOT EXAM [facility] Start: 2008 Diabetic foot examination Diabetic Foot Exam [facility] Start: 2008 Glaucoma screening Dilated Retinal Exam [facility] Start: 2008 Hepatitis B screening URINE ALBUMIN:CREATININE RATIO [facility] Start: 2008 Hepatitis C antibody, confirmatory test DILATED RETINAL EXAM [facility] Start: 2008 MENINGOCOCCAL B: Consider based on risk (1 of 2 - Risk Bexsero 2-dose series) MENINGOCOCCAL B: Consider based on risk (1 of 2 - Risk Bexsero 2-dose series) [facility] Start: 1998 COVID-19 VACCINE (#1) COVID-19 VACCINE (#1) [facility] Amphetamine [Mass/vo lume] in Urine [facility] Anion gap measurement [facility] Anion gap measurement [facility] Anion gap measurement [facility] Anion gap measurement [facility] Anion gap measurement [facility] Anion gap measurement [facility] Anion gap measurement [facility] Anion gap measurement [facility] Anion gap measurement [facility] Anion gap measurement [facility] Anion gap measurement [facility] Anion gap measurement [facility] Anion gap measurement [facility] Anion gap measurement [facility] Bacteria identified in Urine by Culture Urine Culture [facility] BACTERIAL VAGINOSIS NAAT BACTERI AL VAGINOSIS NAAT Lab Routine Screen for STD (sexually transmitted disease) 03/01/2024 12:19 PM EDT [facility] Benzodiazepine measurement, urine [facility] Bilirubin measuremen t, urine [facility] BUN/Creatinine ratio [facility] BUN/Creatinine ratio [facility] BUN/Creatinine ratio [facility] BUN/Creatinine ratio [facility] BUN/Creatinine ratio [facility] BUN/Creatinine ratio [facility] BUN/Creatinine ratio [facility] BUN/Creatinine ratio [facility] BUN/Creatinine ratio [facility] BUN/Creatinine ratio [facility] BUN/Creatinine ratio [facility] BUN/Creatinine ratio [facility] BUN/Creatinine ratio [facility] BUN/Creatinine ratio [facility] Calcium [Mass/volume ] in Serum or Plasma [facility] Calcium [Mass/volume ] in Serum or Plasma [facility] Calcium [Mass/volume ] in Serum or Plasma [facility] Calcium [Mass/volume ] in Serum or Plasma [facility] Calcium [Mass/volume ] in Serum or Plasma [facility] Calcium [Mass/volume ] in Serum or Plasma [facility] Calcium [Mass/volume ] in Serum or Plasma [facility] Calcium [Mass/volume ] in Serum or Plasma [facility] Calcium [Mass/volume ] in Serum or Plasma [facility] Calcium [Mass/volume ] in Serum or Plasma [facility] Calcium [Mass/volume ] in Serum or Plasma [facility] Calcium [Mass/volume ] in Serum or Plasma [facility] Calcium [Mass/volume ] in Serum or Plasma [facility] Calcium [Mass/volume ] in Serum or Plasma [facility] MICHELLE/TRICHOMONAS NAAT MICHELLE /TRICHOMONAS NAAT Lab Routine Screen for STD (sexually transmitted disease) 03/01/2024 12:19 PM EDT [facility] Carbon dioxide, tota l [Moles/volume] in Serum or Plasma [facility] Carbon dioxide, tota l [Moles/volume] in Serum or Plasma [facility] Carbon dioxide, tota l [Moles/volume] in Serum or Plasma [facility] Carbon dioxide, tota l [Moles/volume] in Serum or Plasma [facility] Carbon dioxide, tota l [Moles/volume] in Serum or Plasma [facility] Carbon dioxide, tota l [Moles/volume] in Serum or Plasma [facility] Carbon dioxide, tota l [Moles/volume] in Serum or Plasma [facility] Carbon dioxide, tota l [Moles/volume] in Serum or Plasma [facility] Carbon dioxide, tota l [Moles/volume] in Serum or Plasma [facility] Carbon dioxide, tota l [Moles/volume] in Serum or Plasma [facility] Carbon dioxide, tota l [Moles/volume] in Serum or Plasma [facility] Carbon dioxide, tota l [Moles/volume] in Serum or Plasma [facility] Carbon dioxide, tota l [Moles/volume] in Serum or Plasma [facility] Carbon dioxide, tota l [Moles/volume] in Serum or Plasma [facility] Chlamydia trachomatis+Neisseria gonorrhoeae DNA [Presence] in Unspecified specimen by JEANNETTE with probe detection GONORRHEA/CHLAMYDIA NAAT Lab Routine Screen for STD (sexually transmitted disease) 03/01/2024 12:19 PM EDT [facility] Chloride [Moles/volu me] in Serum or Plasma [facility] Chloride [Moles/volu me] in Serum or Plasma [facility] Chloride [Moles/volu me] in Serum or Plasma [facility] Chloride [Moles/volu me] in Serum or Plasma [facility] Chloride [Moles/volu me] in Serum or Plasma [facility] Chloride [Moles/volu me] in Serum or Plasma [facility] Chloride [Moles/volu me] in Serum or Plasma [facility] Chloride [Moles/volu me] in Serum or Plasma [facility] Chloride [Moles/volu me] in Serum or Plasma [facility] Chloride [Moles/volu me] in Serum or Plasma [facility] Chloride [Moles/volu me] in Serum or Plasma [facility] Chloride [Moles/volu me] in Serum or Plasma [facility] Chloride [Moles/volu me] in Serum or Plasma [facility] Chloride [Moles/volu me] in Serum or Plasma [facility] Cocaine measurement, urine [facility] COVID & INFLUENZA A/ B & RSV NAAT, ROUTINE COVID & INFLUENZA A/B & RSV NAAT, ROUTINE Microbiology Routine Exposure to SARS-associated coronavirus 04/07/2023 1:12 PM EDT [facility] Work Phone: Creatinine [Moles/vo lume] in Serum or Plasma [facility] Creatinine [Moles/vo lume] in Serum or Plasma [facility] Creatinine [Moles/vo lume] in Serum or Plasma [facility] Creatinine [Moles/vo lume] in Serum or Plasma [facility] Creatinine [Moles/vo lume] in Serum or Plasma [facility] Creatinine [Moles/vo lume] in Serum or Plasma [facility] Creatinine [Moles/vo lume] in Serum or Plasma [facility] Creatinine [Moles/vo lume] in Serum or Plasma [facility] Creatinine [Moles/vo lume] in Serum or Plasma [facility] Creatinine [Moles/vo lume] in Serum or Plasma [facility] Creatinine [Moles/vo lume] in Serum or Plasma [facility] Creatinine [Moles/vo lume] in Serum or Plasma [facility] Creatinine [Moles/vo lume] in Serum or Plasma [facility] Creatinine [Moles/vo lume] in Serum or Plasma [facility] Glucose [Mass/volume ] in Serum or Plasma [facility] Glucose [Mass/volume ] in Serum or Plasma [facility] Glucose [Mass/volume ] in Serum or Plasma [facility] Glucose [Mass/volume ] in Serum or Plasma [facility] Glucose [Mass/volume ] in Serum or Plasma [facility] Glucose [Mass/volume ] in Serum or Plasma [facility] Glucose [Mass/volume ] in Serum or Plasma [facility] Glucose [Mass/volume ] in Serum or Plasma [facility] Glucose [Mass/volume ] in Serum or Plasma [facility] Glucose [Mass/volume ] in Serum or Plasma [facility] Glucose [Mass/volume ] in Serum or Plasma [facility] Glucose [Mass/volume ] in Serum or Plasma [facility] Glucose [Mass/volume ] in Serum or Plasma [facility] Glucose [Mass/volume ] in Serum or Plasma [facility] Hemoglobin [Presence ] in Urine [facility] Hemoglobin A1c/Hemoglobin.total in Blood [facility] Hemoglobin A1c/Hemoglobin.total in Blood [facility] Measurement of 3,4-methylenedioxymethamp hetamine in urine [facility] Measurement of keton es in urine using dipstick [facility] Measurement of renal function [facility] Measurement of renal function [facility] Measurement of renal function [facility] Measurement of renal function [facility] Measurement of renal function [facility] Measurement of renal function [facility] Measurement of renal function [facility] Measurement of renal function [facility] Measurement of renal function [facility] Measurement of renal function [facility] Measurement of renal function [facility] Measurement of renal function [facility] Measurement of renal function [facility] Measurement of renal function [facility] Methadone measuremen t, urine [facility] Microscopic urinalysis [facility] NEXPLANON INSERTION NEXPLANON IN SERTION Procedures Routine Insertion of Nexplanon Ordered: 03/01/2024 [facility] Comment on above: Ordered: 03/01/2024 NEXPLANON REMOVAL NEXPLANON FLOYD COREY Procedures Routine Encounter for removal and reinsertion of Nexplanon Ordered: 03/01/2024 [facility] Comment on above: Ordered: 03/01/2024 NEXPLANON REMOVAL NEXPLANON FLOYD COREY Procedures Routine Nexplanon removal Ordered: 08/19/2024 [facility] Work Phone: Comment on above: Ordered: 08/19/2024 Ova and parasites identified in Unspecified specimen by Light microscopy [facility] PAP TEST PAP TEST Lab [facility] adult exam Encounter for gynecological examination (general) (routine) without abnormal findings Screening for cervical cancer Encounter for screening for human papillomavirus (HPV) 03/01/2024 12:19 PM EDT [facility] Patient Education [facility] Work Phone: Patient referral [facility] Work Phone: pH of Urine [facility] pH of Urine [facility] Phencyclidine [Prese nce] in Urine [facility] Potassium [Moles/vol ume] in Serum or Plasma [facility] Potassium [Moles/vol ume] in Serum or Plasma [facility] Potassium [Moles/vol ume] in Serum or Plasma [facility] Potassium [Moles/vol ume] in Serum or Plasma [facility] Potassium [Moles/vol ume] in Serum or Plasma [facility] Potassium [Moles/vol ume] in Serum or Plasma [facility] Potassium [Moles/vol ume] in Serum or Plasma [facility] Potassium [Moles/vol ume] in Serum or Plasma [facility] Potassium [Moles/vol ume] in Serum or Plasma [facility] Potassium [Moles/vol ume] in Serum or Plasma [facility] Potassium [Moles/vol ume] in Serum or Plasma [facility] Potassium [Moles/vol ume] in Serum or Plasma [facility] Potassium [Moles/vol ume] in Serum or Plasma [facility] Potassium [Moles/vol ume] in Serum or Plasma [facility] RAPID STREP TEST B/O RAPID STREP TEST B/O Lab Routine Sore throat Ordered: 04/07/2023 [facility] Work Phone: Comment on above: Ordered: 04/07/2023 ROUTINE FLU A/B + RSV ROUTINE FL U A/B + RSV Lab Routine Exposure to SARS-associated coronavirus 04/07/2023 1:12 PM EDT [facility] Work Phone: SARS-CoV-2 (COVID-19 ) RNA [Presence] in Respiratory specimen by JEANNETTE with probe detection COVID NAAT, UPPER RESPIRATORY, ROUTINE Microbiology Routine Exposure to SARS-associated coronavirus 04/07/2023 1:12 PM EDT [facility] Work Phone: Sodium [Moles/volume ] in Serum or Plasma [facility] Sodium [Moles/volume ] in Serum or Plasma [facility] Sodium [Moles/volume ] in Serum or Plasma [facility] Sodium [Moles/volume ] in Serum or Plasma [facility] Sodium [Moles/volume ] in Serum or Plasma [facility] Sodium [Moles/volume ] in Serum or Plasma [facility] Sodium [Moles/volume ] in Serum or Plasma [facility] Sodium [Moles/volume ] in Serum or Plasma [facility] Sodium [Moles/volume ] in Serum or Plasma [facility] Sodium [Moles/volume ] in Serum or Plasma [facility] Sodium [Moles/volume ] in Serum or Plasma [facility] Sodium [Moles/volume ] in Serum or Plasma [facility] Sodium [Moles/volume ] in Serum or Plasma [facility] Sodium [Moles/volume ] in Serum or Plasma [facility] Specific gravity of Urine [facility] Urea nitrogen [Mass/volume] in Serum or Plasma [facility] Urea nitrogen [Mass/volume] in Serum or Plasma [facility] Urea nitrogen [Mass/volume] in Serum or Plasma [facility] Urea nitrogen [Mass/volume] in Serum or Plasma [facility] Urea nitrogen [Mass/volume] in Serum or Plasma [facility] Urea nitrogen [Mass/volume] in Serum or Plasma [facility] Urea nitrogen [Mass/volume] in Serum or Plasma [facility] Urea nitrogen [Mass/volume] in Serum or Plasma [facility] Urea nitrogen [Mass/volume] in Serum or Plasma [facility] Urea nitrogen [Mass/volume] in Serum or Plasma [facility] Urea nitrogen [Mass/volume] in Serum or Plasma [facility] Urea nitrogen [Mass/volume] in Serum or Plasma [facility] Urea nitrogen [Mass/volume] in Serum or Plasma [facility] Urea nitrogen [Mass/volume] in Serum or Plasma [facility] Urinalysis, blood, qualitative [facility] Urine barbiturate measurement [facility] Urine cannabinoid measurement [facility] Urine dipstick for glucose [facility] Urine dipstick for leukocyte esterase [facility] Urine dipstick for nitrite [facility] Urine dipstick for protein [facility] Urine examination [facility] Urine microscopy: epithelial cells [facility] Urine Microscopy: wh ite cells [facility] Urine opiate measurement [facility] Urobilinogen [Presen ce] in Urine [facility] Immunizations Immunization Date Immunization Notes Care Provider Fa cili 01-27-2024 pneumococcal conjuga te (PCV20) vaccine, 20 valent (PREVNAR 20) Chasity Hodge PA-C Work Phone: [facility] 01-27-2024 pneumococcal Conjuga te, unspecified formulation Chasity Hodge PA-C Work Phone: [facility] Work Phone: 12-08-2019 hepatitis A and hepatitis B vaccine Aris Chow 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 Work Phone: [facility] Work Phone: 01-18-2015 meningococcal polysaccharide (groups A, C, Y and W-135) diphtheria toxoid conjugate vaccine (MCV4P) Aris Geraldo 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 Work Phone: [facility] 01-18-2015 tetanus toxoid, redu ramya diphtheria toxoid, and acellular pertussis vaccine, adsorbed Aris Chow 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 Work Phone: [facility] 06-09-2014 human papilloma viru s vaccine, quadrivalent [facility] 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 Work Phone: [facility] 06-09-2014 meningococcal polysaccharide (groups A, C, Y and W-135) diphtheria toxoid conjugate vaccine (MCV4P) [facility] 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 Work Phone: [facility] 06-11-2013 human papilloma viru s vaccine, [facility]rivalent [facility] 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 2023 Unknown [id number] 2023 Private Health Insurance [id number] 2023 Private Health Insurance [id number] 2013 Medicaid [facility] [id number] 2013-Present [phone] [address] [place] [address] Medicaid [id number] 2013 Medicaid [id number] 2013 Unknown [id number] 2013 Unknown [id number] 1998 Unknown [id number] Unknown [id number] Unknown [id number] 462 Unknown [id number]. 462 Unknown [id number]. 462 Unknown [id number]. 462 Unknown [id number]. 462 Unknown [id number]. 462 Unknown [id number]. 462 Unknown [id number]. 462 Unknown [id number]. 462 Unknown [id number]. 462 Unknown [id number] 462 Social History Date Type Detail Facility Start: 11-07-2021 End: 11-26-2023 Tobacco smoking status NHIS Unknown if ever smoked [facility] Start: 11-10-2019 Occasional [facility] Start: 01-13-2020 Marijuana [facility] Start: 05-27-2020 Spouse/ Signif icant Other [facility] Start: 11-10-2019 - [facility] Start: 2000 Sex Assigned At Female W [facility] Start: 12-31-2011 End: 11-26-2024 Tobacco smoking status NHIS Never smoked tobacco [facility] Start: 12-31-2011 End: 05-02-2022 Tobacco use and exposure Smokeless tobacco non-user [facility] Start: 05-05-2020 End: 12-26-2021 Alcohol intake Current non-drinker of alcohol (finding) [facility] Start: 06-07-2021 History SDOH Alcohol Comment Stopped [facility] Start: 11-18-2013 End: 05-02-2022 Tobacco Comment parents inside/outside [facility] Start: 2000 Sex Assigned At Not on file C [facility] Start: 04-05-2020 End: 12-31-2021 Exposure to SARS-CoV-2 (event) Not sure [facility] History of tobacco use Passive smoker [facility] Start: 01-16-2023 End: 04-14-2024 History of Social function [facility] Start: 01-16-2023 End: 04-14-2024 Tobacco use panel [facility] Adult Depression Screening Assessment 0 [facility] How hard is it for you to pay for the very basics like food, housing, medical care, and heating Hard [facility] (I/We) worried whether (my/our) food would run out before (I/we) got money to buy more. Sometimes true [facility] Start: 03-01-2024 End: 08-18-2024 Alcohol intake Current drinker of alcohol (finding) [facility] Start: 03-01-2024 Alcohol Comment occasional [facility] Start: 10-04-2024 Sex Female (finding) [facility] Start: 11-27-2024 End: 11-27-2024 Tobacco smoking status NHIS Current some day smoker [facility] NEGATED: Highlighted row [facility] NEGATED: Highlighted row Not [facility] Medical Equipment Procedure Code Equipment Code Equipment Origin al Text Equipment Identifier Dates INSULIN SYRINGE-NEEDLE U-100 [id number] Start: 08-23-2015 End: 07-02-2025 Comment on above: [...] 09-07-2018 Pen Needle, Diabetic ([facility]fort [facility] [place]) 32 gauge x 1/4 needle Start: 10-27-2017 End: 11-24-2017 Pen Needle, Diabetic (Comfort [facility] Pen [place]) 32 gauge x 1/4 needle Start: 11-24-2017 [...] 09-07-2018 Pen Needle, Diabetic (Comfort [facility] [place]) 32 gauge x 1/4 needle Start: 10-27-2017 End: 11-24-2017 Pen Needle, Diabetic (Comfort [facility] [place]) 32 gauge x 1/4 needle Start: 11-24-2017 [...] 09-07-2018 Pen Needle, Diabetic (Comfort [facility] [place]) 32 gauge x 1/4 needle Start: 10-27-2017 End: 11-24-2017 Pen Needle, Diabetic (Com[facility] [place]) 32 gauge x 1/4 needle Start: 11-24-2017 [...] 09-07-2018 Pen Needle, Diabetic (Comfort [facility] [place]) 32 gauge x 1/4 needle Start: 10-27-2017 End: 11-24-2017 Pen Needle, Diabetic (Com[facility] [place]) 32 gauge x 1/4 needle Start: 11-24-2017 [...] 09-07-2018 Pen Needle, Diabetic (Comfort [facility] [place]) 32 gauge x 1/4 needle Start: 10-27-2017 End: 11-24-2017 Pen Needle, Diabetic (Comfort [facility] [place]) 32 gauge x 1/4 needle Start: 11-24-2017 [...] 09-07-2018 Pen Needle, Diabetic (Comfort [facility] [place]) 32 gauge x 1/4 needle Start: 10-27-2017 End: 11-24-2017 Pen Needle, Diabetic (Comfort [facility] [place]) 32 gauge x 1/4 needle Start: 11-24-2017 [...] 09-07-2018 Pen Needle, Diabetic (Comfort [facility] [place]) 32 gauge x 1/4 needle Start: 10-27-2017 End: 11-24-2017 Pen Needle, Diabetic (Comfort [facility] [place]) 32 gauge x 1/4 needle Start: 11-24-2017 [...] 09-07-2018 Pen Needle, Diabetic (Comfort [facility] [place]) 32 gauge x 1/4 needle Start: 10-27-2017 End: 11-24-2017 Pen Needle, Diabetic (Comfort [facility] [place]) 32 gauge x 1/4 needle Start: 11-24-2017 [...] 09-07-2018 Pen Needle, Diabetic (Comfort [facility] [place]) 32 gauge x 1/4 needle Start: 10-27-2017 End: 11-24-2017 Pen Needle, Diabetic (Comfort [facility] [place]) 32 gauge x 1/4 needle Start: 11-24-2017 [...] 09-07-2018 Pen Needle, Diabetic (Comfort [facility] [place]) 32 gauge x 1/4 needle Start: 10-27-2017 End: 11-24-2017 Pen Needle, Diabetic (Comfort [facility] [place]) 32 gauge x 1/4 needle Start: 11-24-2017 [...] 09-07-2018 Pen Needle, Diabetic (Comfort [facility] [place]) 32 gauge x 1/4 needle Start: 10-27-2017 End: 11-24-2017 Pen Needle, Diabetic (Comfort [facility] [employer] [place]) 32 gauge x 1/4 needle Start: 11-24-2017 [...] 09-07-2018 Pen Needle, Diabetic (Comfort [facility] [place]) 32 gauge x 1/4 needle Start: 10-27-2017 End: 11-24-2017 Pen Needle, Diabetic (Comfort Ez [place]) 32 gauge x 1/4 needle Start: 11-24-2017 [...] 09-07-2018 Pen Needle, Diabetic (Comfort Ez [place]) 32 gauge x 1/4 needle Start: 10-27-2017 End: 11-24-2017 Pen Needle, Diabetic (Comfort Ez [place]) 32 gauge x 1/4 needle Start: 11-24-2017 End: 11-24-2017 Test blood sugar (s) 4 times daily. Dx: Type 1 DM - Uncontrolled E 10.65 Insulin: Yes [id number] Start: 12-24-2023 End: 12-24-2023 Use as instructe d 10 times daily [id number] Start: 08-23-2015 End: 12-24-2023 Use with insulin injections [id number] Start: 09-13-2016 End: 12-24-2023 Supply to be use d as directed for insulin administration up to 3 times daily. [id number] Start: 01-16-2016 End: 12-24-2023 Uses up to 5 bro ly with insulin injection. Give with each insulin administration. [id number] Start: 04-14-2024 Use as instructe d up to 6 times daily [id number] Start: 08-22-2016 End: 06-07-2021 Acetone (Urine) Test [...] 09-07-2018 Pen Needle, Diabetic (Comfort Ez Pen [place]) 32 gauge x 1/4 needle Start: 10-27-2017 End: 11-24-2017 Pen Needle, Diabetic (Comfort [facility] [place]) 32 gauge x 1/4 needle Start: 11-24-2017 [...] 09-07-2018 Pen Needle, Diabetic (Comfort Ez [place]) 32 gauge x 1/4 needle Start: 10-27-2017 End: 11-24-2017 Pen Needle, Diabetic (Comfort Ez Pen [place]) 32 gauge x 1/4 needle Start: 11-24-2017 [...] 09-07-2018 Pen Needle, Diabetic (Comfort Ez Pen [place]) 32 gauge x 1/4 needle Start: 10-27-2017 End: 11-24-2017 Pen Needle, Diabetic (Comfort Ez [place]) 32 gauge x 1/4 needle Start: 11-24-2017 [...] 09-07-2018 Pen Needle, Diabetic (Comfort Ez Pen [place]) 32 gauge x 1/4 needle Start: 10-27-2017 End: 11-24-2017 Pen Needle, Diabetic (Comfort Ez Pen [place]) 32 gauge x 1/4 needle Start: 11-24-2017 End: 11-24-2017 Goals Date Patient Goal Desired Activity /State Functional Status Date Assessment Result Facility 11-28-2024 Functional status Ambulates;Up a d hugo;Bedrest [facility] Work Phone: 11-28-2023 Functional status Up ad hugo [facility] Work Phone: 11-28-2023 Functional status Tolerates Activity Well [facility] Work Phone: 10-17-2023 Functional status Ambulates;Up ad hugo [facility] Work Phone: 03-05-2023 Functional status Ambulates;Up a d hugo;Bathroom Privilege [facility] Work Phone: 02-17-2023 Functional status Ambulates;Up ad hugo [facility] Work Phone: 12-27-2022 Functional status Ambulates [facility] Work Phone: 11-23-2022 Functional status Ambulates [facility] Work Phone: 02-16-2015 Are you deaf, or do you have serious difficulty hearing No 02/16/2015 10:57 AM Kaitlin Heard Ma [facility] 02-16-2015 Are you blind, or do you have serious difficulty seeing, even when wearing glasses No 02/16/2015 10:57 AM Kaitlin Heard Ma [facility] 02-16-2015 Do you have serious difficulty walking or climbing stairs No 02/16/2015 10:57 AM Kaitlin Heard Ma [facility] 02-16-2015 Do you have difficul ty dressing or bathing No 02/16/2015 10:57 AM Kaitlin Heard Ma [facility] 02-16-2015 Because of a physica l, mental, or emotional condition, do you have difficulty doing errands alone such as visiting a physician's office or shopping No 02/16/2015 10:57 AM Kaitlin Heard Ma [facility] Mental Status Date Assessment Result Facility 11-27-2024 Cognitive function Awake;Alert;A ppropriate;Fol lows Commands [facility] Work Phone: 11-28-2023 Cognitive function Voice/Name [facility] Work Phone: 11-25-2023 Cognitive function Level Of Cons ciousness Awake;Alert;Appropriate [facility] Work Phone: 11-11-2023 Cognitive function Level Of Cons ciousness Awake;Alert;Appropriate [facility] Work Phone: 10-17-2023 Cognitive function Voice/Name [facility] Work Phone: 10-16-2023 Cognitive function Level Of Cons ciousness Awake;Alert;Appropriate;Fol lows Commands [facility] Work Phone: 03-05-2023 Cognitive function Voice/Name [facility] Work Phone: 03-03-2023 Cognitive function Awake;Alert;Appropriat e [facility] Work Phone: 03-01-2023 Cognitive function Awake;Alert;A ppropriate;Fol lows Commands [facility] Work Phone: 02-16-2023 Cognitive function Voice/Name [facility] Work Phone: 02-15-2023 Cognitive function Level Of Cons ciousness Drowsy;Lethargic [facility] Work Phone: 12-27-2022 Cognitive function Voice/Name [facility] Work Phone: 12-23-2022 Cognitive function Level Of Cons ciousness Awake;Alert;Appropriate [facility] Work Phone: 11-23-2022 Cognitive function Voice/Name [facility] Work Phone: 02-16-2015 Because of a physica l, mental, or emotional condition, do you have serious difficulty concentrating, remembering, or making decisions Yes 02/16/2015 10:57 AM Kaitlin Heard Ma Yes [facility] Clinical Notes 07-29-2016 to 11-28-2024 Note Date & Type Note Facility 11-28-2024 Discharge summary Note Date/Time November 28, 2024 1:09p m [facility] Medical Records Department [address] [place] [address] Discharge Summary 11/28/24 1300 MR#: [id number] Acct: [id number] Name: KALIE DESIR Rep #:[id number] : 2000 24 From: Damien Villagran DO PCP: Minnie Hodge Status:ADM I N Location: ICU [place] [address] 3-1 Providers Date of Admission: 11/27/24 Primary [...] 91.3 H, Lymph % (Auto) 5.9 L, [place] % (Auto) 2.1, Eos % (Auto) 0.0, [...] Clarity Clear, Urine pH 5.0, Ur Specific [place] 1.025, Urine Protein 30 H, Urine Glucose [...] (Auto) 82.4 H, Lymph % (Auto) 10.4L, [place] % (Auto) 6.7, Eos % (Auto) 0.0, [...] No acute cardiopulmonary process. Reading Location: [facility] D/C Instructions Discharge Diet: 2000 Calorie Control [...] Instructions: As directed Referrals / Follow Up: [facility] [Provider Group] - Within 1 Month Minnie Hodge [Primary Care Provider] - Within 2 Weeks Disposition Disposition (needs filled in before D/C Order can be placed): Home, Self Care Charges/Coding Visit Charges Inpatient E&M: 59664 Disch Hosp 11/28/24 2719 <Electronically signed by Damien Villagran DO> Cosigner Signature (if applicable): CC: Minnie Hodge; Dr. Damien Villagran DO~ Signed [facility] Work Phone: 1(442) 766-110605-11-2025 Progress note Author Damien Villagran [facility] Note Date/Time November 28, 2024 12:52 pm [facility] Medical Records Department [address] [place] [address] Progress Note - Hospitalist 11/28/24 0750 MR#: [id number] Acct: [id number] Name: KALIE DESIR Rep #:[id number] : 2000 24 From: Damien Villagran DO PCP: Minnie Hodge Status:ADM I N Location: ICU [place] [address] 3-1 Reason for Visit Reason for Visit: [...] 91.3 H, Lymph % (Auto) 5.9 L, [place] % (Auto) 2.1, Eos % (Auto) 0.0, [...] Clarity Clear, Urine pH 5.0, Ur Specific [place] 1.025, Urine Protein 30 H, Urine Glucose [...] (Auto) 82.4 H, Lymph % (Auto) 10.4L, [place] % (Auto) 6.7, Eos % (Auto) 0.0, [...] No acute cardiopulmonary process. Reading Location: [facility] Physical Exam Const alert and no apparent [...] Cosigner Signature (if applicable): CC: ~ Signed [facility] Work Phone: 1(881) 123-934505-11-2025 Discharge summary [facility] Medical Records Department [address] [place] [address] Discharge Summary 11/28/24 1300 MR#: [id number] Acct: [id number] Name: KALIE DESIR Rep #:[id number] : 2000 24 From: Damien Villagran DO PCP: Minnie Hodge Status:ADM I N [facility] Providers Date of Admission: 11/27/24 [...] 91.3 H, Lymph % (Auto) 5.9 L, [place] % (Auto) 2.1, Eos % (Auto) 0.0, [...] Clarity Clear, Urine pH 5.0, Ur Specific [place] 1.025, Urine Protein 30 H, Urine Glucose [...] (Auto) 82.4 H, Lymph % (Auto) 10.4L, [place] % (Auto) 6.7, Eos % (Auto) 0.0, [...] No acute cardiopulmonary process. Reading Location: [facility] D/C Instructions Discharge Diet: 2000 Calorie Control [...] Instructions: As directed Referrals / Follow Up: [facility] [Provider Group] - Within 1 Month Minnie Hodge [Primary Care Provider] - Within 2 Weeks Disposition Disposition (needs filled in before D/C Order can be placed): Home, Self Care Charges/Coding Visit Charges Inpatient E&M: 37386 Disch Hosp 11/28/24 1309 Cosigner Signature (if applicable): CC: Minnie Hodge; Dr. Damien Villagran, DO~ Signed [facility]05-11-2025 [facility] Medical Records Department [address] [place] [address] Discharge Summary 11/28/24 1300 MR#: [id number] Acct: [id number] Name: KALIE DESIR Rep #: [id number] : 2000 24 From: Damien Villagran DO PCP: Minnie Hodge Status:ADM IN Location: ICU [id number] Providers Date of Admission: 11/27/24 Primary Care [...] 91.3 H, Lymph % (Auto) 5.9 L, [place] % (Auto) 2.1, Eos % (Auto) 0.0, [...] Clarity Clear, Urine pH 5.0, Ur Specific [place] 1.025, U rine Protein 30 H, Urine [...] L, Estim Creat C (more content not included)...[facility]05-11-2025 Progress note [facility] Medical Records Department [address] [place] [address] Progress Note - Hospitalist 11/28/24 0900 MR#: [id number] Acct: [id number] Name: KALIE DESIR Rep #:[id number] : [...] 91.3 H, Lymph % (Auto) 5.9 L, [place] % (Auto) 2.1, Eos % (Auto) 0.0, [...] Clarity Clear, Urine pH 5.0, Ur Specific [place] 1.025, Urine Protein 30 H, Urine Glucose [...] (Auto) 82.4 H, Lymph % (Auto) 10.4L, [place] % (Auto) 6.7, Eos % (Auto) 0.0, [...] IMPRESSION: No acute cardiopulmonary process. Reading Location: [facility] Physical Exam Const alert and no apparent [...] Cosigner Signature (if applicable): CC: ~ Signed [facility]05-10-2025 History and physical note Author Zaida Hoff [facility] Note Date/Time November 27, 2024 4:03p m [facility] Medical Records Department [address] [place] [address] H&P Exam - Hospitalist 11/27/24 1542 MR#: [id number] Acct: [id number] Name: KALIE DESIR Rep #:[id number] : 2000 24 From: Zaida Hoff MD PCP: Minnie Hodge Status:ADM I N Location: ICU [id number] 4-1 HPI - General General Date of Admission: 11/27/24 Date of Service: 11/27/24 Chief Complaint: DKA HPI Narrative axel HENRIQUEZ a Patient is a 24-year-old female with history of type 1 diabetes, cannabis emesis syndrome, asthma who presented to [facility] ED with her significant other 11/27/2024 [...] of a cough associated with her vomiting [facility] Medical History Obesity (BMI 30.0-34.9) Insulin dependent [...] you participate in: walking and weight training jose/buddhism: None seatbelt use: always do you feel [...] 91.3 H, Lymph % (Auto) 5.9 L, [place] % (Auto) 2.1, Eos % (Auto) 0.0, [...] Clarity Clear, Urine pH 5.0, Ur Specific [place] 1.025, Urine Protein 30 H, Urine Glucose [...] No acute cardiopulmonary process. Reading Location: [facility] Assessment & Plan Assessment/Plan (1) Diabetic ketoacidosis: [...] 57 Minutes Charges/Coding Visit Charges Inpatient E&M: 44954 Init Hosp L2 11/27/24 1603 <Electronically signed by Zaida Hoff MD> Cosigner Signature (if applicable): CC: Minnie Hodge; Dr. Zaida Hoff MD~ Signed [facility] Work Phone: 1(664) 236-824405-10-2025 Discharge summary Author Ted Mcghee [facility] [facility] Note Date/Time November 27, 2024 2:41p [facility] Medical Records Department [address] [place] [address] Emergency Department Summary 11/27/24 MR#: [id number] Acct: [id number] Name: KALIE DESIR Rep #:[id number] : [...] Prior similar symptoms: Yes Recent Illness/Hospitalization: [facility] Medical History Obesity (BMI 30.0-34.9) Insulin dependent [...] you participate in: walking and weight training jose/buddhism: None seatbelt use: always do you feel [...] 91.3 H Lymph % (Auto) 5.9 L Candler % (Auto) 2.1 Eos % (Auto) 0.0 [...] Clarity Clear Urine pH 5.0 Ur Specific [place] 1.025 Urine Protein 30 H Urine Glucose [...] No acute cardiopulmonary process. Reading Location: [facility] EKG Initial EKG: Attestation: I personally reviewed and interpreted this EKG as follows: Interpretation: Sinus Tachycardia (Rate is 123. TN interval is 130 ms. Cures duration 80 ms. QT duration 3 and 50 ms. [place] is normal. 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 Went overher labs), Discussing w/Consultants (Case discussed with Dr. Zaida Hoff. Fulladmission ICU) and Arranging Admission or Transfer Discharge Plan Triage Chief Complaint: Hyperglycemia Other Complaint: Nausea/Vomiting ED Provider: Ted Mcghee Dx/Rx/DC Orders Clinical Impression: Diabetic ketoacidosis associated with type 1 diabetes mellitus, Leukocytosis, Nausea & vomiting, Sinus tachycardia seen on offal separator Prescriptions: No Action (DME) Dexcom G6 Sensor [...] Hodge [Primary Care Provider] - Print Language: Slovenian Disposition Disposition: [facility] What to do if you have Problems For any increased pain, shortness of breath, bleeding, nausea or vomiting, chestpain, or any unexpected problems, contact your Primary Care Provider. Call [facility] ([phone]) or report to the closest Emergency Room. Call 911 if necessary. 11/27/24 1441 <Electronically signed by Ted Mcghee MD> Cosigner Signature (if applicable): CC: Minnie Hodge ~ Signed [facility] Work Phone: 1(612) 926-687805-10-2025 History and physical note [facility] Medical Records Department [address] [place] [address] H&P Exam - Hospitalist 11/27/24 1542 MR#: [id number] Acct: [id number] Name: KALIE DESIR Rep #:[id number] : 2000 24 From: Zaida Hoff MD PCP: Minnie Hodge Status:ADM I N Location: ICU CVICU20 4-1 HPI - General General Date of Admission: 11/27/24 Date of Service: 11/27/24 Chief Complaint: DKA HPI Narrative KALIE DESIR, is a Patient is a 24-year-old female with history of type 1 diabetes, cannabis emesis syndrome, asthma who presented to [facility] ED with her significant other 11/27/2024 [...] of a cough associated with her vomiting [facility] Medical History Obesity (BMI 30.0-34.9) Insulin dependent [...] you participate in: walking and weight training jose/buddhism: None seatbelt use: always do you feel [...] 91.3 H, Lymph % (Auto) 5.9 L, [place] % (Auto) 2.1, Eos % (Auto) 0.0, [...] Clarity Clear, Urine pH 5.0, Ur Specific [place] 1.025, Urine Protein 30 H, Urine Glucose [...] IMPRESSION: No acute cardiopulmonary process. Reading Location: [facility] Assessment & Plan Assessment/Plan (1) Diabetic ketoacidosis: [...] 57 Minutes Charges/Coding Visit Charges Inpatient E&M: 14841 Init Hosp L2 11/27/24 1603 Cosigner Signature (if applicable): CC: Minnie Hodge; Dr. Zaida Hoff MD~ Signed [facility]05-10-2025 Discharge summary [facility] Medical Records Department [address] [place] [address] Emergency Department Summary 11/27/24 MR#: [id number] Acct: [id number] Name: KALIE DESIR Rep #:[id number] : [...] you participate in: walking and weight training jose/buddhism: None seatbelt use: always do you feel [...] 91.3 H Lymph % (Auto) 5.9 L [place] % (Auto) 2.1 Eos % (Auto) 0.0 [...] Clarity Clear Urine pH 5.0 Ur Specific [place] 1.025 Urine Protein 30 H Urine Glucose [...] No acute cardiopulmonary process. Reading Location: [facility] EKG Initial EKG: Attestation: I personally reviewed and interpreted this EKG as follows: Interpretation: Sinus Tachycardia (Rate is 123. TN interval is 130 ms. Cures duration 80 ms. QT duration 3 and 50 ms. [place] is normal. 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 Went overher labs), Discussing w/Consultants (Case discussed with Dr. Zaida Hoff. Fulladmission ICU) and Arranging Admission or Transfer Discharge Plan Triage Chief Complaint: Hyperglycemia Other Complaint: Nausea/Vomiting ED Provider: Ted Mcghee Dx/Rx/DC Orders Clinical Impression: Diabetic ketoacidosis associated with type 1 diabetes mellitus, Leukocytosis, Nausea & vomiting, Sinus tachycardia seen on offal separator Prescriptions: No Action (DME) Dexcom G6 Sensor [...] Hodge [Primary Care Provider] - Print Language: Slovenian Disposition Disposition: [facility] What to do if you have Problems For any increased pain, shortness of breath, bleeding, nausea or vomiting, chestpain, or any unexpected problems, contact your Primary Care Provider. Call [facility] ([phone]) or report tothe closest Emergency Room. Call 911 if necessary. 11/27/24 1441 Cosigner Signature (if applicable): CC: Minnie Hodge ~ Signed [facility]05-10-2025 Radiology Diagnostic study note [facility] Imaging Services [address] [place] [address] Chest PA and Lateral MR#: [id number] Acct: [id number] Name: KALIE DESIR Rep #: [id number] : 2000 F 24 From: Kait Sheldon MD PCP: Minnie Hodge Status: REG E R Study:Chest PA and Lateral Date of Exam: 11/27/24 Exam# [id number] Ordering Dr: Shreya Mcghee MD EXAM: XR Chest, 2 Views CLINICAL INDICATION: PRODUCTIVE COUGH TECHNIQUE: Frontal and lateral views of the chest. COMPARISON: No relevant prior studies available. FINDINGS: LUNGS AND PLEURAL SPACES: Unremarkable. No consolidation. No pneumothorax. HEART: Unremarkable. No cardiomegaly. MEDIASTINUM: Unremarkable. Normal mediastinal contour. BONES/JOINTS: Unremarkable. No acute fracture. RAD/Chest PA and Lateral IMPRESSION: No acute cardiopulmonary process. Reading Location: [id number] CC: Minnie Hodge; Dr. Ted Mcghee MD ~ Truck Rental Clerk: Signed [facility]04-17-2025 Telephone encounter Note* Telephone Encounter - Kaylen Shaffer MA - 11/04/2024 2:39 PM EDT Images from the original note were not included. Most recent Endocrinology visit: Last encounter Visit on 02/04/2024 (with Veronika Dorado) 02/04/2024 in [facility] with VERONIKA DORADO for Type 1 diabetes [...] on file in the last 12 months [facility]04-17-2025 Miscellaneous Notes* Telephone Encounter - Kaylen Shaffer MA - 11/04/2024 2:39 PM EDT Images from the original note were not included. Most recent Endocrinology visit: Last encounter Visit on 02/04/2024 (with Veronika Dorado) 02/04/2024 in [facility] with VERONIKA DORADO for Type 1 diabetes [...] the last 12 months documented in this encounterNorwalk [facility] Hospital03-17-2025 Discharge summary [facility] Medical Records Department [address] [place] [address] Emergency Department Summary 10/04/24 MR#: [id number] Acct: [id number] Name: KALIE DESIR Rep #:[id number] : [...] you participate in: walking and weight training jose/buddhism: None seatbelt use: always do you feel [...] fracture or dislocation is evident. Reading Location: [address] Discharge Plan Triage Chief Complaint: Upper [...] joint. Please follow-up with orthopedics. Print Language: Slovenian Disposition Disposition: Home, Self Care What to do if you have Problems For any increased pain, shortness of breath, bleeding, nausea or vomiting, chestpain, or any unexpected problems, contact your Primary Care Provider. Call [facility] ([phone]) or report tothe closest Emergency Room. Call 911 if necessary. 10/04/24 1508 Cosigner Signature (if applicable): CC: Minnie Hodge ~ Signed [facility]03-17-2025 Radiology Diagnostic study note [facility] Imaging Services [address] [place], [place] [id number] Finger(s) Min 2 Views MR#: [id number] Acct: [id number] Name: KALIE DESIR Rep #: [id number] : 2000 F 24 From: Tyler Small MD PCP: Minnie Hodge Status: PRE E R Study:Finger(s) Min 2 Views Date of Exam: 10/04/24 Exam# [id number] Ordering Dr: Provider ,Ed P. PROCEDURE: FINGER(S) MIN 2 VIEWS 10/04/2024 REASON FOR EXAM: PAIN TECHNIQUE: 3 view(s) of the right thumb COMPARISON: None RAD/Finger(s) Min 2 Views IMPRESSION: Mild degenerative changes are seen both of the right 1st interphalangeal joint and the 1st carpal-metacarpal joint. No significant degree of joint narrowing is seen. No fracture or dislocation is evident. Reading Location: [id number] CC: Minnie Hodge; ED PHYSICIAN PROVIDER ~ Truck Rental Clerk: Signed [facility]03-17-2025 Discharge summary Author Danitza Canada [facility] Note Date/Time October 04, 2024 3:0 8pm [facility] Medical Records Department [address] [place] [address] Emergency Department Summary 10/04/24 MR#: [id number] Acct: [id number] Name: KALIE DESIR Rep #:[id number] : [...] you participate in: walking and weight training jose/buddhism: None seatbelt use: always do you feel [...] fracture or dislocation is evident. Reading Location: [address] Discharge Plan Triage Chief Complaint: Upper [...] joint. Please follow-up with orthopedics. Print Language: Slovenian Disposition Disposition: Home, Self Care What to do if you have Problems For any increased pain, shortness of breath, bleeding, nausea or vomiting, chestpain, or any unexpected problems, contact your Primary Care Provider. Call [facility] ([phone]) or report to the closest Emergency Room. Call 911 if necessary. 10/04/24 1508 <Electronically signed by Danitza Canada DO> Cosigner Signature (if applicable): CC: Minnie Hodge ~ Signed [facility] Work Phone: 1(530) 700-432902-24-2025 Evaluation note* Diagnosis Onset Date Resolution Status Admit Date Encounter for contraceptive management acute September 13, 025 8:36am Encounter for routine gynecological examination noneactive 2024 8:36am [facility] Work Phone: 1(172) 608-388302-24-2025 Evaluation note* Diagnosis Onset Date Resolution Status Admit Date Encounter for contraceptive management acute September 13, 025 8:36am Encounter for routine gynecological examination noneactive 2024 8:36am Diabetic ketoacidosis associated with type 1 diabetes mellitus acute November 27, 2024 2:49pm Leukocytosis acute November 27 2:49pm Nausea & vomiting acute November 2:49pm Sinus tachycardia seen on offal separator acute November 27, 2024 2 :49pm [facility] Work Phone: 1(393) 562-660302-24-2025 Evaluation note* Diagnosis Onset Date Resolution Status Admit Date Encounter for contraceptive management acute September 13, 8:36am Encounter for routine gynecological examination noneactive Februa ry 2024 8:36am Diabetic ketoacidosis associated with type 1 diabetes mellitus acute November 27, 2024 3:42pm Leukocytosis acute November 27 3:42pm Nausea & vomiting acute November 3:42pm Sinus tachycardia seen on offal separator acute November 27, 2024 3 :42pm Diabetic ketoacidosis resolved November 27, 2024 3:42pm Insulin dependent type 1 diabetes mellitus inactive November 27, 2024 3:42pm [facility] Work Phone: 1(648) 387-931301-30-2025 Telephone encounter Note* Telephone Encounter - Aicha Hines RN - 08/19/2024 12:33 PM EST Patient notified and voiced understanding. Transferred to [facility] to schedule. Aicha Hines RN [facility]01-30-2025 Miscellaneous Notes* Telephone Encounter - Aicha Hines RN - 08/19/2024 12:33 PM EST Patient notified and voiced understanding. Transferred to [facility] to schedule. Aicha Hines RN * Telephone [...] place order. Thank you documented in this encounterNorwalk Memorial Hospital01-30-2025 Telephone encounter Note * Telephone Encounter - Devika Tarango MD - 08/19/2024 12:26 PM EST Filed order [facility] Work Phone: [phone]) 464-802601-30-2025 Telephone encounter Note* Telephone Encounter - Lexi Campos RN - 08/19/2024 10:45 AM EST Nexplanon removal order pending. Please file in AT absence and will contact Pt to schedule appt. Lexi Campos RN [facility]01-30-2025 Telephone encounter Note* Telephone Encounter - Denisa Loaiza - 08/19/2024 9:57 AM EST Pt is requesting to have Nexplanon removal due to wanting to try to conceive. Please advise and place order. Thank you [facility]01-29-2025 NoteHNO ID: [id number] Author: ARIS CHOW APRN.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 MANAGER Service: ? Author Type: Nurse Practitioner Type: [...] (3 mL) Inject 20 units daily Insulin [place], Disposable, (PEN NEEDLE) 32 gauge x / [...] time. ASSESSMENT/PLAN: 1. Ba (more content not included)...[facility]01-29-2025 History of Present illness Narrative* Aris Chow APRN.[facility] - 08/18/2024 12:46 PM EST Subjective [...] (3 mL) Inject 20 units daily Insulin [place], Disposable, (PEN NEEDLE) 32 gauge x 5/32 [...] to Er for severe/worsening s/s Aris Chow APRN.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 MANAGER documented in this encounterNorwalk Memorial Hospital11-26-2024 Telephone encounter Note * Telephone Encounter - Nadya Tong RN - 06/15/2024 2:14 PM EST Per [facility] in [place], Pt requested that the Rx be transferred to [facility] today. Called pharmacist at [facility] to notify them that per the last Rx written by Veronika Dorado, TDD was 60 units for Novolog. Nadya Tong RN June 15, 2024 2:20 PM [facility]11-26-2024 Miscellaneous Notes* Telephone Encounter - Nadya Tong RN - 06/15/2024 2:14 PM EST Per [facility] in [place], Pt requested that the Rx be transferred to [facility] today. Called pharmacist at [facility] to notify them that per the last Rx written by Veronika Cioce, TDD was 60 units for Novolog. Nadya Tong RN June 15, 2024 2:20 PM * Telephone Encounter - Lisbeth North - 06/15/2024 12:24 PM EST [facility] called and stated they need to know the maximum units per day the patient is taking for the Novolog. Please advise documented in this encounterNorwalk Memorial Hospital11-26-2024 Telephone encounter Note * Telephone Encounter - Lisbeth North - 06/15/2024 12:24 PM EST [facility] called and stated they need to know the maximum units per day the patient is taking for the Novolog. Please advise [facility]10-25-2024 [facility] Medical Records Department [address] [place] [address] Discharge Summary 05/14/24 0942 MR#: [id number] Acct: [id number] Name: KALIE DESIR Rep #: [id number] : 2000 24 From: Damien Villagran DO PCP: Minnie Hodge Status:ADM IN Location: ICU [id number] Providers Date of Admission: 05/13/24 Primary Care [...] 114, Est GFR (MDRD) (more content not included)...[facility] 05-07-2024 NoteHNO ID: [id number] Author: ARJUN KIM MD Service: ? Author [...] (3 mL) Inject 20 units daily Insulin [place], Disposable, (PEN NEEDLE) 32 gauge x 5/32 [...] ONDANSETRON 4 MG DISINTEGRATING TABLET Arjun Kim [facility]10-18-2024 History of Present illness Narrative* Arjun [...] (3 mL) Inject 20 units daily Insulin [place], Disposable, (PEN NEEDLE) 32 gauge x 5/32 [...] TABLET Arjun Kim MD documented in this encounterNorwalk Memorial Hospital09-25-2024 Telephone encounter Note * Telephone Encounter - Sherry Mcneill RN - 04/14/2024 4:13 PM EDT Received call from [facility] in [place] and the patient's insurance has changed to [employer]. Asking for prior auth to be resubmitted. Sherry Mcneill RN [facility]09-25-2024 Miscellaneous Notes* Telephone Encounter - Sherry Mcneill RN - 04/14/2024 4:13 PM EDT Received call from [facility] in [place] and the patient's insurance has changed to [employer]. Asking for prior auth to be resubmitted. Sherry Mcneill RN * Telephone Encounter - Nadya Tong RN - 04/14/2024 2:11 PM EDT [facility] for Omnipod 5 G6 PODS (GEN 5). [place]: [id number] Nadya Tong RN April 14, 2024 2:12 PM documented in this encounterNorwalk Memorial Hospital09-25-2024 Telephone encounter Note * Telephone Encounter - Juan Carlos Candelario MD - 04/14/2024 3:52 PM EDT Message sent back to End[facility] informing them that these forms are to be completed by the provider managing her diabetes. [facility] Work Phone: 1(260) 578-928909-25-2024 Miscellaneous Notes* Telephone Encounter - Juan Carlos [...] Request for statement of physician form from [facility]. This was forwarded to pcp from [facility] for pcp to complete d/t pcp manages pt's diabetes and has only been seen once in [facility]. Please contact ptonce form has been completed. Srini Gerber LPN documented in this encounterNorwalk Memorial Hospital09-25-2024 Telephone encounter Note * Telephone Encounter - Nadya Tong RN - 04/14/2024 2:11 PM EDT Prior authorization submitted to [facility] for Omnipod 5 G6 PODS (GEN 5). [place]: [id number] Nadya Tong RN April 14, 2024 2:12 PM [facility]09-25-2024 Telephone encounter Note* Telephone Encounter - Veronika Dorado APRN.LIZZY - 04/14/2024 1:04 PM EDT Patient INSULIN LISPRO was filled for her OMNIPOD 12/31/2023 [facility]09-25-2024 Miscellaneous Notes* Telephone Encounter - Veronika Dorado [...] refills on her Glargine. documented in this encounterNorwalk Memorial Hospital09-25-2024 Telephone encounter Note * Telephone Encounter - Nadya Tong RN - 04/14/2024 12:57 PM EDT Pt in office today for diabetic education. Requesting BMV form be completed by 04/19/2024. Please call when ready to be picked up: . Thank you! Nadya Tong RN April 14, 2024 12:58 PM [facility]09-25-2024 Telephone encounter Note* Telephone Encounter - Jackeline Shukla RN - 04/14/2024 12:41 PM EDT Patient reports she has been having issues with getting Omnipod5 covered. Has been out of pods for several weeks now. She has been using her back up insulin but is almost out of rapid acting insulin and does not have refills on her Glargine. [facility] Work Phone: 1(109) 189-939009-25-2024 NoteHNO ID: [id number] Author: JACKELINE SHUKLA RN Service: ? Author [...] Desir DATE: April 14, 2024 TIME: 12:28 [facility]09-25-2024 History of Present illness Narrative* Jackeline Shukla [...] 2024 TIME: 12:28 PM documented in this encounterNorwalk Memorial Hospital09-25-2024 Telephone encounter Note * Telephone Encounter - Jazzmine Gonzalez MA - 04/14/2024 8:50 AM EDT Upon review of the chart Dr. Cui signed this form 3 years ago. Patient just recently starting seeing Endo in January. Jazzmine Gonzalez MA [facility]09-25-2024 Telephone encounter Note* Telephone Encounter - Srini Gerber LPN - 04/14/2024 8:27 AM EDT Received Request for statement of physician form from [facility]. This was forwarded to pcp from [facility] for pcp to complete d/t pcp manages pt's diabetes and has only been seen once in [facility]. Please contact ptonce form has been completed. Srini Gerber LPN [facility]09-23-2024 Telephone encounter Note* Telephone Encounter - Nadya [...] Tong RN April 12, 2024 11:44 AM [facility]09-23-2024 Miscellaneous Notes* Telephone Encounter - Nadya Tong [...] 12, 2024 11:44 AM documented in this encounterNorwalk Memorial Hospital09-12-2024 Telephone encounter Note * Telephone Encounter - Kaylen Shaffer MA - 04/01/2024 3:27 PM EDT Please help patient schedule with educator. Kaylen Shaffer MA [facility]09-12-2024 Miscellaneous Notes* Telephone Encounter - Kaylen Shaffer MA - 04/01/2024 3:27 PM EDT Please help patient schedule with educator. Kaylen Shaffer MA documented in this encounterNorwalk Memorial Hospital09-12-2024 Telephone encounter Note * Telephone Encounter - Sherry Mcneill RN - 04/01/2024 2:49 PM EDT Patient phones requesting refills as follows: Requested Prescriptions Pending Prescriptions Disp Refills OMNIPOD 5 G6 PODS, GEN 5, crtg Please review and advise. Sherry Mcneill RN [facility]09-12-2024 Miscellaneous Notes* Telephone Encounter - Sherry Mcneill RN - 04/01/2024 2:49 PM EDT Patient phones requesting refills as follows: Requested Prescriptions Pending Prescriptions Disp Refills OMNIPOD 5 G6 PODS, GEN 5, crtg Please review and advise. Sherry Mcneill RN documented in this encounterNorwalk Memorial Hospital09-05-2024 History of Present illness Narrative* Jolynn Prieto [...] PATIENT PRESENTS WITH AN IMPLANTABLE OR ATTACHED ADMINISTRATIVE ASSISTANT: Yes [facility]: General X-ray: Exam(s) Completed: Spine X-Ray(s): Lumbar AP / LAT / L5-S1 Upper Extremity X-Ray(s): Wrist, right PERIPHERAL IV DATA: Not applicable SIGNED BY: RT Bessie(R) March 25, 2024 2:24 PM documented in this encounterNorwalk Memorial Hospital09-05-2024 NoteHNO ID: [id number] Author: JOLYNN PRIETO RT(R) Service: Radiology Author [...] PATIENT PRESENTS WITH AN IMPLANTABLE OR ATTACHED ADMINISTRATIVE ASSISTANT: Yes [facility] RADIOLOGY DEPARTMENT: General X-ray: Exam(s) Completed: Spine X-Ray(s): Lumbar AP / LAT / L5-S1 Upper Extremity X-Ray(s): Wrist, right PERIPHERAL IV DATA: Not applicable SIGNED BY: RT Bessie(R) March 25, 2024 2:24 [facility]09-05-2024 NoteHNO ID: [id number] Author: ROSA ISELA GONZALEZ APRN.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 MANAGER Service: ? Author Type: Nurse Practitioner Type: Progress Notes Filed: 03/25/2024 15:10 Note Text: Subjective Patient was moving furniture 3 days ago and noticed her back started hurting on both sides and then a day later her right wrist was hurting. The history is provided by the patient. No language specialist was used. Back Pain Review of Systems [...] getting worse not better. Rosa Isela Gonzalez APRN.[facility]09-05-2024 History of Present illness Narrative* Rosa Isela Gonzalez APRN.[facility] - 03/25/2024 2:18 PM EDT Images from the original note were not included. Subjective Patient was moving furniture 3 days ago and noticed her back started hurting on both sides and thena day later her right wrist was hurting. The history is provided by the patient. No language specialist was used. Back Pain Review of Systems [...] Rosa Isela Gonzalez APRN.LIZZY documented in this encounterNorwalk Memorial Hospital08-21-2024 Instructions* Patient Instructions* Frances Clayton LPN - [...] days to prevent . documented in this encounterNorwalk Memorial Hospital08-21-2024 NoteHNO ID: [id number] Author: EVELYN CARR MD Service: ? Author [...] LMP 07/21/2023 test: negative Nexplanon lot #: [id number] Exp date: 10/2025 UNIVERSAL PROTOCOL / SAFETY [...] contraception for 7 days. Evelyn Carr MD [facility]08-21-2024 History of Present illness Narrative* Evelyn [...] LMP 07/21/2023 test: negative Nexplanon lot #: [id number] Exp date: 10/2025 UNIVERSAL PROTOCOL / SAFETY [...] Evelyn Carr MD l documented in this encounterNorwalk Memorial Hospital08-12-2024 NoteHNO ID: [id number] Author: EVELYN CARR MD Service: ? Author Type: Physician Type: Progress Notes Filed: 03/01/2024 11:46 Note Text: Transportation Lead offered: Patient accepts, visit chaperoned by nurse. [...] ~ 11 [employer] Discount Total Savings: $ [facility] extends a ciarra discount to all qualifying patients. This reduces your estimated cost and estimated responsibility. -7 days duration. Contraception: Nexplanon HPV vaccine: Yes Last Pap: this is her first HPV: negative History of abnormal pap: No Last mammogram: never Sexually active: Yes Last sexual contact: 1 mo ago. 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 [...] ~ 11 Ciarra Discount Total Savings: $ [facility] extends a ciarra discount to all qualifying patients. This reduces your estimatedcost and estimated responsibility. -7 days duration. Contraception: Nexplanon HPV vaccine: Yes Last Pap: this is her first HPV: negative History of abnormal pap: No Last mammogram: never Sexually active: Yes Last sexual contact: 1 mo ago. 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 LMP: 07/21/2023 (Approximate), Implant Age at Menarche: Age at First : Age at Menopause: Roller Machine Operator History Comments: Sexual Activity: Yes; Female, Male [...] external genitalia normal, normal Bartholin's glands, urethra, Lewellen's glands, no vulvar lesions, no cervical lesions, [...] needed Evelyn Carr MD documented in this encounterNorwalk [facility]07-[facility] History of Present illness Narrative* Veronika Dorado, 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 - 02/04/2024 10:15 AM EDT OFFICE VISIT [...] A1C Veronika Dorado CNP documented in this encounterNorwalk [facility] Hospital07-17-2024 NoteHNO ID: [id number] Author: VERONIKA DORADO APRN.LIZZY Service: ? Author [...] she was [facility] but was dropped as a patient due [...] Grandfather Diabetes Paternal Gra (more content not included)...[facility] 01-27-2024 NoteHNO ID: [id number] Author: CHASITY HODGE PA-C Service: ? Author Type: Physician Cyber Security Engineer Type: Progress Notes Filed: 01/27/2024 11:15 Note Text: Chief Complaint Patient presents with: Physical HPI Kalei Desir is a 23 year old female who presents here today for physical. Patient with hx of type 1 DM. Poorly controlled over the years with numerous visits to ER for DKA. Is scheduled next week with new er tech. States she is feeling more motivated to [...] No history of dysuria, frequency or incontinence MOTION AND TIME STUDY TEACHER: Negative for abnormal vaginal bleeding, abnormal vaginal [...] Lungs clear to auscultatio (more content not included)...[facility]07-09-2024 History of Present illness Narrative* Chasity Hodge PA- C - 01/27/2024 10:03 AM EDT Chief Complaint Patient presents with: Physical HPI Kalie Desir is a 23 year old female who presents here today for physical. Patient with hx of type 1 DM. Poorly controlled over the years with numerous visits to ER for DKA. Is scheduled next week with new er tech. States she is feeling more motivated to [...] No history of dysuria, frequency or incontinence MOTION AND TIME STUDY TEACHER: Negative for abnormal vaginal bleeding, abnormal vaginal [...] Abs Lymph 1.00 - 4.00 k/uL 1.25 Candler% % 4.8 Abs Candler <0.87 k/uL 0.29 Eosin% % 2.0 Abs Eosin <0.46 k/uL 0.12 Baso% % 0.8 Abs Baso <0.11 k/uL 0.05 Immature Gran % % 0.2 IMMATURE GRANS (ABS) <0.10 k/uL <0.03 NRBC /100 WBC 0.0 Absolute nRBC <0.01 k/uL <0.01 DTYPE Auto Color Yellow Yellow Clarity Clear Clear Glucose, Urine Negative 3+ ! Bilirubin, Urine Negative Negative Ketones, Urine Negative Negative Specific [place], Ur 1.005 - 1.030 1.032 (H) Hemoglobin/Blood,Ur [...] and regular exercise - Patient was counseled [id number] by myself (the billing provider) for the [...] months. Chasity Hodge PA-C documented in this encounterNorwalk [facility] Hospital06-19-2024 NoteHNO ID: [id number] Author: SULY AMAYA MSW Service: ? Author Type: Correctional Probation Officer Type: Progress Notes Filed: 01/07/2024 12:31 Note Text: This Sw notes Hamlet Communication Skills Instructor provided patient with link to [employer] patient assistance program.[facility]06-19-2024 History of Present illness Narrative* Suly Amaya MSW - 01/07/2024 12:30 PM EDT This Sw notes Hamlet Communication Skills Instructor provided patient with link to dexcom patient assistance program. * Suly Amaya MSW - 01/07/2024 9:42 AM EDT Patient reports that she used to see Dr. Chow-[facility] endocrinology. Sw does not see patient [...] cost [facility]com [facility] Sw will forward note to VERONICA Banda, Endo for options regarding assistance with dexcom sensor. Patient reports living with mom. Patient reports that she eats anything. Patient notes trying to stay away from bread and pasta, but that is what her mom likes to make. Patient reports that she likes to drink water. Patient reports that she works at [employer]. Patient reports enjoys eating at home. Patient reports insulin pump runs about $50 a month. Patient reports that she pays $400 every 2 weeks for rent. Goals: Locate financial assistance for dexcom. Would like A1C to be down to a 6. Would like to lose weight. Enjoys walking and listening to music. Sw [facility] [place] resource guide. Discussed Community Action and [place] assistance ie. Utilities, car repair, water bill, electric bill. People to People was also discussed in regards to short term medication assistance. documented in this encounterNorwalk [facility] Hospital06-19-2024 NoteHNO ID: [id number] Author: JACKELINE SHUKLA RN Service: ? Author [...] Dexcom due to cost issues, plans to product picker after Meal Planning: reviewed basic meal planning [...] connect her insulin pump to the [facility]'s [facility] account was sent to her along with the link for the Dexcom Patient Assistance program. DIABETES CARE AND EDUCATION PLAN: Individual follow-up Time Spent (Minutes): 30 This visit note will be communicated to the healthcare provider via access to shared medical record. SIGNATURE: Jackeline Shulka RN PATIENT NAME: Kalie Desir DATE: January 07, 2024 TIME: 10:25 [facility]06-19-2024 History of Present illness Narrative* Jackeline Shukla [...] Dexcom due to cost issues, plans to product picker after Meal Planning: reviewed basic meal planning [...] connect her insulin pump to the [facility]'s [facility] account was sent to her along with the link for the Dexcom Patient Assistance program. DIABETES CARE AND EDUCATION PLAN: Individual follow-up Time Spent (Minutes): 30 This visit note will be communicated to the healthcare provider via access to shared medical record. SIGNATURE: Jackeline Shukla RN PATIENT NAME: Kalie Desir DATE: January 07, 2024 TIME: 10:25 AM documented in this encounterNorwalk Memorial Hospital06-19-2024 NoteHNO ID: [id number] Author: SULY AMAYA MSW Service: ? Author Type: Correctional Probation Officer Type: Progress Notes Filed: 01/07/2024 12:31 Note Text: Patient reports that she used to see Dr. Chow-[facility] endocrinology. Sw does not see patient [...] water. Patient reports that she works at [employer]. Patient reports enjoys eating at home. Patient reports insulin pump runs about $50 a month. Patient reports that she pays $400 every 2 weeks for rent. Goals: Locate financial assistance for dexcom. Would like A1C to be down to a 6. Would like to lose weight. Enjoys walking and listening to music. Sw reviewed [facility] and [place] resource guide. Discussed Community Action and [facility] assistance ie. Utilities, car repair, water bill, electric bill. People to People was also discussed in regards to short term medication assistance.[facility]06-06-2024 Telephone encounter Note* Telephone Encounter - Chasity Hodge PA-C - 12/25/2023 11:54 AM EDT Noted. [facility]06-06-[facility] Miscellaneous Notes* Telephone Encounter - Chasity Hodge [...] Thanks. Chasity Hodge PA-C documented in this encounterNorwalk Memorial Hospital06-06-2024 Telephone encounter Note * Telephone Encounter - Cora Dupree - 12/25/2023 11:11 AM EDT Spoke with patient and scheduled for February 03 (first available) with Sammi Dorado and also added appointment to wait list for cancellations. [facility]06-06-[facility] Telephone encounter Note* Telephone Encounter - April Jamil LPN - 12/25/2023 10:22 AM EDT Encounter routed to PSS to check if Veronika Dorado has any sooner appointments. Appointment with Merary has been cancelled and patient has been notified of providers message. [facility]06-06-[facility] Telephone encounter Note* Telephone Encounter - [...] any sooner appointments? Thanks. Chasity Hodge PA-C [facility]06-06-[facility] Telephone encounter Note* Telephone Encounter - April Jamil LPN - 12/25/2023 10:00 AM EDT Patient notified of providers message and verbalized understanding. Patient states she will go to pharmacy now for the insulin. [facility]06-06-[facility] Miscellaneous Notes* Telephone Encounter - April Jamil LPN - 12/25/2023 10:00 AM EDT Patient notified of providers message and verbalized understanding. Patient states she will go to pharmacy now for the insulin. * Telephone Encounter - Chasity Hodge PA-C - 12/25/2023 9:37 AM EDT She needs to at least product picker her insulin. Please let patient know. Also, we heard back from endocrinology. she was notified of being discharged from Dr. Chow's officeback in October due to chronic noncompliance. This should have been plenty of time for her to notify us and get set up with new er tech vs waiting 2 months to see me [...] omnipods on 11/10/23, this was sent to [facility] in [place]. Enough med & supplies to last until [...] meds until she gets established with new er tech). Chasity Hodge PA-C documented in this encounterNorwalk Memorial Hospital06-06-2024 Telephone encounter Note * Telephone Encounter - Chasity Hodge PA-C - 12/25/2023 9:37 AM EDT She needs to at least product picker her insulin. Please let patient know. Also, we heard back from endocrinology. she was notified of being discharged from Dr. Chow's officeback in October due to chronic noncompliance. This should have been plenty of time for her to notify us and get set up with new er tech vs waiting 2 months to see me [...] from here on out. Chasity Hodge PA-C [facility]-06[facility] Telephone encounter Note* Telephone Encounter - April Jamil LPN - 12/25/2023 9:33 AM EDT Spoke with [facility]. Pharmacy states that prescription for dexcom supplies and the insulin are onhold. They state that it is possible that patient didn't pick them up due to cost but they will runit through again. [facility]06-[facility] Telephone encounter Note* Telephone Encounter - Chasity Hodge PA-C - 12/25/2023 9:09 AM EDT Please call [facility] and see if they have any medications on hold for her? [facility] Telephone encounter Note* Telephone Encounter - Bonnie [...] omnipods on 11/10/23, this was sent to [facility] in [place]. Enough med & supplies to last until she finds anotherprovider. Bonnie Huber LPN [facility]06-06-2024 Telephone encounter Note* Telephone Encounter - [...] meds until she gets established with new er tech). Chasity Hodge PA-C [facility]06-05-2024 NoteHNO ID: [id number] Author: CHASITY HODGE PA-C Service: ? Author Type: Physician Cyber Security Engineer Type: Progress Notes Filed: 12/24/2023 12:50 Note Text: Chief Complaint Patient presents with: Hospital F/U [facility] Kalie Desir is a 23 year old [...] scanning reader (FREESTYLE DANIELA 14 DAY READER) [facility] For blood sugar checks 4 times a day (Patient not taking: Reported on 10/16/2022) potassium chloride ER (K-DUR, KLOR-CON) 20 mEq tablet Take 20 mEq by mouth twice daily. (Patient not taking: Reported on 12/24/2023) Insulin [place], Disposable, (OPAL PEN NEEDLE) 32 gauge x [...] Insulin Admin Supplies (NOVOP (more content not included)...[facility]06-05-2024 History of Present illness Narrative* Chasity Hodge PA- C - 12/24/2023 9:44 AM EDT Chief Complaint Patient presents with: Hospital F/U [facility] Kalie Desir is a 23 year old [...] scanning reader (FREESTYLE DANIELA 14 DAY READER) [facility] For blood sugar checks 4 times aday (Patient not taking: Reported on 10/16/2022) potassium chloride ER (K-DUR, KLOR-CON) 20 mEq tablet Take 20 mEq by mouth twice daily. (Patient not taking: Reported on 12/24/2023) Insulin [place], Disposable, (OPAL PEN NEEDLE) 32 gauge x [...] hospitalizations. - will also place consult to sr. social media & mobile manager given financial and social burdens. - CONSULT TO ENDOCRINOLOGY - SENIOR ACCOUNT CLERK [CONSULT TO SOCIAL WORK] - CONSULT TO DIABETES EDUCATION DSME/MNT - COMPLETE BLOOD COUNT AND DIFFERENTIAL - URINALYSIS, WITH MICROSCOPIC - ALBUMIN/CREATININE RATIO, URINE - HEMOGLOBIN A1C - COMPREHENSIVE METABOLIC PANEL 2. Encounter for lipid screening for cardiovascular disease - ICD9: V77.91, V81.2, ICD10: Z13.220, Z13.6 - LIPID PANEL, NONFASTING Set up PE in 1 month. Chasity Hodge PA-C documented in this encounterNorwalk Memorial Hospital05-10-2024 Discharge summary Author Damien Villagran [facility] November 28, 2023 2:05pm Note Date/Time November 28, 2023 1:59p [facility] Medical Records Department [address] [place] [address] Discharge Summary 11/28/23 1356 MR#: [id number] Acct: [id number] Name: KALIE DESIR Rep #:[id number] : 2000 23 From: Damien Villagran DO PCP: Minnie Hodge Status:ADM I N Location: [facility] LO082-9 Providers Date of Admission: 11/26/23 Primary Care Physician: Minine Hodge Consultations 11/26/23 05:37 Consult: General Surgery [...] She states that she also has an er tech that she will be following up with. [...] - enoxaparin Patient has been admitted to [facility] 14 times since 2018. I did [...] GFR (MDRD) Non-Af 83, BUN/Creatinine Ratio 14.9, [id number] H, Calcium 7.7 L 11/27/23 15:13: POC Glucose 195 H 11/27/23 16:10: POC Glucose 119 H 11/27/23 16:25: Sodium 138, Potassium 3.2 L, Chloride 114 H, Carbon Dioxide 17.0L, Anion Gap 7, BUN 12, Creatinine 0.84, Estim Creat Clear Calc 85.18, Est GFR (MDRD) Af Amer 105, Est GFR (MDRD) Non-Af 87, BUN/Creatinine Ratio 14.2, [id number], Calcium 7.9 L 11/27/23 17:01: POC Glucose [...] Instructions / Restrictions: Please follow-up with your er tech at your appointment that has been previously scheduled. If you have issues with your insulin pump, notify your primary care doctor or your er tech. Is possible that he may need to [...] Self Care Charges/Coding Visit Charges Inpatient E&M: 24626 Disch Hosp 11/28/23 1405 <Electronically signed by Damien Villagran DO> Cosigner Signature (if applicable): CC: Minnie Hodge; Dr. Damien Villagran DO~ Signed [facility] Work Phone: 1(626) 497-933005-09-2024 Progress note Author Arely Gutierrez [facility] November 27, 2023 1:59pm Note Date/Time November 27, 2023 9:10am [facility] Medical Records Department [address] [facility] [place] [address] Progress Note - Surgery 11/27/23905 MR#: [id number] Acct: [id number] Name: KALIE DESIR Rep #:[id number] : [...] 85.7 H, Lymph % (Auto) 9.7 L, Candler % (Auto) 4.0, Eos % (Auto) 0.0, [...] this patient Charges/Coding Visit Charges Inpatient E&M: 40189 Subs Hosp L1 11/27/23 1359 <Electronically signed by Arely CROOKS PA-C> Cosigner Signature (if applicable): CC: ~ Signed [facility] Work Phone: 1(354) 581-942405-09-2024 Progress note Author Damien Villagran [facility] November 27, 2023 1:38pm Note Date/Time November 27, 2023 9:38am [facility] Medical Records Department [address] [place] [address] Progress Note - Hospitalist 11/27/23 0935 MR#: [id number] Acct: [id number] Name: KALIE DESIR Rep #:[id number] : [...] 85.7 H, Lymph % (Auto) 9.7 L, Cand[place] % (Auto) 4.0, Eos % (Auto) 0.0, [...] - enoxaparin Charges/Coding Visit Charges Inpatient E&M: 29998 Subs Hosp L2 11/27/23 0938 <Electronically signed by Damien Villagran DO> Cosigner Signature (if applicable): CC: ~ Signed ADDENDUM by Dr. Damien Villagran DO on 11/27/23 at 1338 Addendum Patient has been admitted to [facility] 14 times since 2018. 11/27/23 1338<Electronically signed by Damien Villagran DO> Cosigner Signature (if applicable): cc: ~* Signed [facility] Work Phone: 1(322) 136-824705-08-2024 Consult note Author Emery Calle [facility] November 26, 2023 4:28pm Note Date/Time November 26, 2023 9:02am [facility] Medical Records Department [address] [place] [address] Consultation - Surgical 11/26/23 0859 MR#: [id number] Acct: [id number] Name: KALIE DESIR Rep #:[id number] : [...] Calle MD General Surgery Endocrine Surgery Pager: [facility] [address] [place] [address], [facility], [address] [place] [address] Office: [phone] 11/26/23 5934<Electronically signed by Emery Calle MD> Cosigner Signature [...] notes she was recently fired by her er tech due to having multiple no shows. Patientnotes [...] 15.7, Hct 48.7, Plt 444. Neut 91.9. [facility] Medical History Anxiety and depression Asthma Cannabis [...] 91.9 H, Lymph % (Auto) 3.4 L, Cand[place] % (Auto) 2.4, Eos % (Auto) 0.0, [...] Protein 8.6 H, Albumin 4.8, Globulin 3.8, Ixtmjw56, Acetone Level MODERATE H 11/26/23 01:15: Urine Color Yellow, Urine Clarity Clear, Urine pH 5.0, Ur Specific [place] 1.025, Urine Protein 100 H, Urine Glucose [...] Charges/Coding Visit Charges Office Visits / Consults: 16377 IP Consult L3 11/26/23 1444 <Electronically signed by Aerly CROOKS PA-C> Cosigner Signature (if applicable): CC: Minnie Hodge~ Signed [facility] Work Phone: 1(975) 785-938205-08-2024 Progress note Author Damien Villagran [facility] November 26, 2023 1:56pm Note Date/Time November 26, 2023 9:28am [facility] Medical Records Department [address] [place] [address] Progress Note - Hospitalist 11/26/23 0926 MR#: [id number] Acct: [id number] Name: THANGKALIE AFIA Rep #:[id number] : [...] 91.9 H, Lymph % (Auto) 3.4 L, [place] % (Auto) 2.4, Eos % (Auto) 0.0, [...] Protein 8.6 H, Albumin 4.8, Globulin 3.8, Eonblv33, Acetone Level MODERATE H 11/26/23 01:15: Urine Color Yellow, Urine Clarity Clear, Urine pH 5.0, Ur Specific [place] 1.025, Urine Protein 100 H, Urine Glucose [...] Cosigner Signature (if applicable): CC: ~ Signed [facility] Work Phone: 1(701) 158-802605-08-2024 Procedure [facility] 11-26-2023 Discharge summary Author Sunil Mina [facility] November 26, 2023 6:53am Note Date/Time November 26, 2023 1:52am [facility] Medical Records Department [address] [facility] [place] [address] Emergency Department Summary 11/26/23 MR#: [id number] Acct: [id number] Name: KALIE DESIR Rep #:[id number] : [...] 91.9 H Lymph % (Auto) 3.4 L [place] % (Auto) 2.4 Eos % (Auto) 0.0 [...] Color Urine Clarity Urine pH Ur Specific [place] Urine Protein Urine Glucose (UA) Urine Ketones [...] (Auto) Neut % (Auto) Lymph % (Auto) [place] % (Auto) Eos % (Auto) Baso % [...] Clarity Clear Urine pH 5.0 Ur Specific [place] 1.025 Urine Protein 100 H Urine Glucose [...] (Auto) Neut % (Auto) Lymph % (Auto) [place] % (Auto) Eos % (Auto) Baso % [...] Color Urine Clarity Urine pH Ur Specific [place] Urine Protein Urine Glucose (UA) Urine Ketones [...] & vomiting Disposition Disposition: Acute Care Hospital [facility] What to do if you have Problems For any increased pain, shortness of breath, bleeding, nausea or vomiting, chestpain, or any unexpected problems, contact your Primary Care Provider. Call [facility] ([phone]) or report to the closest Emergency Room. Call 911 if necessary. 11/26/23 0653 <Electronically signed by Sunil Mina DO> Cosigner Signature (if applicable): CC: Minnie Hodge ~ Signed [facility] Work Phone: 1(678) 644-764505-08-2024 History and physical note Author Jackeline Aguilar [facility] November 26, 2023 5:42am Note Date/Time November 26, 2023 1:26am [facility] Medical Records Department [address] [place] [address] H&P Exam - Hospitalist 11/26/23 0125 MR#: [id number] Acct: [id number] Name: KALIE DESIR Rep #:[id number] : [...] insulin pump in place who presents to [facility] ER complaining of hyperglycemia. Ms. Gonzalez [...] expected to be greater than 2 midnights. [facility] Medical History Anxiety and depression Asthma Cannabis [...] 91.9 H, Lymph % (Auto) 3.4 L, [place] % (Auto) 2.4, Eos % (Auto) 0.0, [...] Mina Blood Gas Notified Time 01:02:40 Imaging [facility] Imaging Services [address] [place] [address] Abdomen/Pelvis without Cont MR#: [id number] Acct: [id number] Name: KALIE DESIR Rep #: [id number] : 2000 F 23 From: Anna Enriquez MD PCP: Minnie Hodge Status: REG ER Study: Abdomen/Pelvis without Cont Date of Exam: 11/26/23 Exam# [id number] Ordering Dr: Sunil Mina DO EXAM: CT [...] and mesenteric lymph nodes, stable. Electronically Signed: nAna Enriquez MD at 4:17 EDT Reading Location ID and State: [facility] / [place] Tel , Service support , CC: Minnie Hodge; Sunil Mina DO ~ Truck Rental Clerk: Signed Assessment & Plan Assessment/Plan (1) DKA [...] 75 minutes. Charges/Coding Visit Charges Inpatient E&M: 36081 Init Hosp L3 11/26/23 0542 <Electronically signed by Jackeline Rowe DO> Cosigner Signature (if applicable): CC: Minnie Hodge; Dr. Jackeline Rowe DO~ Signed [facility] Work Phone: 1(630) 696-139705-08-2024 History and physical note Author Jackeline Aguilar [facility] November 26, 2023 5:42am Note Date/Time November 26, 2023 1:26am [facility] Medical Records Department [address] [place] [address] H&P Exam - Hospitalist 11/26/23 0125 MR#: [id number] Acct: [id number] Name: KALIE DESIR Rep #:[id number] : [...] insulin pump in place who presents to [facility] ER complaining of hyperglycemia. Ms. Gonzalez [...] expected to be greater than 2 midnights. [facility] Medical History Anxiety and depression Asthma Cannabis [...] 91.9 H, Lymph % (Auto) 3.4 L, [place] % (Auto) 2.4, Eos % (Auto) 0.0, [...] Mina Blood Gas Notified Time 01:02:40 Imaging [facility] Imaging Services [address] [place] [address] Abdomen/Pelvis without Cont MR#: [id number] Acct: [id number] Name: THANGKALIENEDA OREILLY Rep #: [id number] : 2000 F 23 From: Anna Enriquez MD PCP: Minnie Hodge Status: REG ER Study: Abdomen/Pelvis without Cont Date of Exam: 11/26/23 Exam# [id number] Ordering Dr: Sunil Mina DO EXAM: CT [...] CC: Minnie Hodge; Sunil Mina DO ~ Truck Rental Clerk: Signed Assessment & Plan Assessment/Plan (1) DKA [...] 75 minutes. Charges/Coding Visit Charges Inpatient E&M: 99618 Init Hosp L3 11/26/23 0542 <Electronically signed by Jackeline Rowe DO> Cosigner Signature (if applicable): CC: Minnie Hodge; Dr. Jackeline Rowe DO~ Signed [facility] Work Phone: [phone] [id number] Discharge summary Author Sunil Mina [facility] November 26, 2023 6:53am Note Date/Time November 26, 2023 1:52am [facility] Medical Records Department [address] [place] [address] Emergency Department Summary 11/26/23 MR#: [id number] Acct: [id number] Name: KALIE DESIR Rep #:[id number] : [...] 91.9 H Lymph % (Auto) 3.4 L Candler % (Auto) 2.4 Eos % (Auto) 0.0 [...] Color Urine Clarity Urine pH Ur Specific [place] Urine Protein Urine Glucose (UA) Urine Ketones [...] (Auto) Neut % (Auto) Lymph % (Auto) Candler % (Auto) Eos % (Auto) Baso % [...] Clarity Clear Urine pH 5.0 Ur Specific [place] 1.025 Urine Protein 100 H Urine Glucose [...] (Auto) Neut % (Auto) Lymph % (Auto) Candler % (Auto) Eos % (Auto) Baso % [...] Color Urine Clarity Urine pH Ur Specific [place] Urine Protein Urine Glucose (UA) Urine Ketones [...] & vomiting Disposition Disposition: [facility] What to do if you have Problems For any increased pain, shortness of breath, bleeding, nausea or vomiting, chestpain, or any unexpected problems, contact your Primary Care Provider. Call [facility] ([phone]) or report to the closest Emergency Room. Call 911 if necessary. 11/26/23 0653 <Electronically signed by Sunil Mina DO> Cosigner Signature (if applicable): CC: Minnie Hodge ~ Signed [facility] Work Phone: [phone]) 703-123303-29-2024 Discharge summary Author Kassy Rosales [facility] October 16, 2023 10:13pm Note Date/Time October 16, 2023 4:1 0pm [facility] Medical Records Department [address] [place] [address] Emergency Department Summary 10/16/23 MR#: [id number] Acct: [id number] Name: KALIE DESIR Rep #:[id number] : [...] 11/21/22 [History Last Taken 02/12/23] blood-glucose transmitter ([employer] G6 Transmitter device) #1 ea 11/23/22 [Rx [...] 93.3 H Lymph % (Auto) 3.7 L Candler % (Auto) 2.1 Eos % (Auto) 0.0 [...] ketoacidosis, Tachycardia Disposition Disposition: Acute Care [facility] What to do if you have Problems For any increased pain, shortness of breath, bleeding, nausea or vomiting, chestpain, or any unexpected problems, contact your Primary Care Provider. Call [facility] ([phone]) or report to the closest Emergency Room. Call 911 if necessary. 10/16/232212 <Electronically signed by Kassy Rosales DO> Cosigner Signature (if applicable): CC: Minnie Hodge ~ Signed [facility] Work Phone: 1([phone]) 321-450003-28-2024 History and physical note Author Damien Villagran [facility] October 16, 2023 5:58pm Note Date/Time October 16, 2023 5:5 2pm [facility] Medical Records Department [address] [place] [address] H&P Exam - Hospitalist 10/16/23 1748 MR#: [id number] Acct: [id number] Name: KALIE DESIR Rep #:[id number] : [...] well as started on an insulin drip. [facility] Medical History Anxiety and depression Asthma Cannabis [...] 93.3 H, Lymph % (Auto) 3.7 L, Candler % (Auto) 2.1, Eos % (Auto) 0.0, [...] Clarity Clear, Urine pH 5.0, Ur Specific [place] 1.025, Urine Protein 100 H, Urine Glucose [...] * Patient has a follow-up appointment with [place] [facility] on November 09. * Check an A1c VTE prophylaxis with enoxaparin Patient warrants admission with high risk medication with an insulin drip. Thiscannot be safely managed at home because of the risk of worsening DKA could be deadly. Charges/Coding Visit Charges Inpatient E&M: 84379 Init Hosp L3 10/16/23 7537 <Electronically signed by Damien Villagran DO> Cosigner Signature (if applicable): CC: Minnie Hodge; Dr. Damien Villagran DO~ Signed [facility] Work Phone: 1(246) 475-997909-18-2023 History of Present illness Narrative* Arely Velez APRN.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 MANAGER - 04/07/2023 12:23 PM EDT SUBJECTIVE: Kalie [...] scanning reader (FREESTYLE DANIELA 14 DAY READER) [facility] For blood sugar checks 4 times aday (Patient not taking: Reported on 10/16/2022) 1 Each 1 Insulin [place], Disposable, (OPAL PEN NEEDLE) 32 gauge x [...] mucosal membranes moist pink no exudate no CVOR NURSE yoli TM clearwith no signs of infection [...] Strep testing MDM: Patient presented to the [facility] today for COVID and Influenza testing. Vital signs were evaluated and found to be within normal limits. Kalie Desir was in no acute distress. Strep testing is negative. We discussed the COVID results will be back in the next 1-2 days. [facility], Kalie Desir was instructed to quarantine, [...] - RAPID STREP TEST B/O Arely Velez APRN.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 MANAGER documented in this encounterNorwalk [facility] Hospital09-07-2023 Miscellaneous Notes* Telephone Encounter - Arely Ji RN - 03/27/2023 11:04 AM EDT Sam Cortes RN with [facility] called and requested Pts last OV note be faxed to [employer]. Faxed to # [phone]. documented in this encounterNorwalk Memorial Hospital08-16-2023 Discharge summary Author Diego Haas [facility] March 05, 2023 2:10pm Note Date/Time March 05, 2023 12 :44pm [facility] Medical Records Department [address] [place] [address] Instructions for Home/Discharge Instructions 03/05/23 1241 MR#: [id number] Acct: [id number] Name: KLAIE DESIR Rep #:[id number] : 2000 22 [...] with your primary care doctor and/or your er tech as needed. Discharge Orders/Prescriptions Prescriptions: New ondansetron [...] insurance with pickup time between 1:00-1:15 confirmation #[id number]. ) Disposition Disposition (needs filled in before D/C Order can be placed): Home, Self Care 03/05/23 1410<Electronically signed by Diego Haas DO>Diego Haas DO CC: Minnie Hodge; Dr. Uziel Mahmood MD ~ Signed [facility] Work Phone: [phone]) [phone] Progress note Author Diego Waldo [facility] March 04, 2023 3:16pm Note Date/Time March 04, 2023 3: 16pm [facility] Medical Records Department [address] [place] [address] Progress Note - Hospitalist 03/04/23 1501 MR#: [id number] Acct: [id number] Name: KALIE DESIR Rep #:[id number] : [...] % (Auto) 69.8, Lymph % (Auto) 20.6, Candler% (Auto) 8.3, Eos % (Auto) 0.5, Baso [...] asthma and anxiety/depression who presented to the [facility] ED on 03/03 with concern for [...] treating as below. Okay for transfer to [facility] floor. We will continue maintenance IV fluids [...] 35 minutes. Charges/Coding Visit Charges Inpatient E&M: 81240 Subs Hosp L2 03/04/23 1516 <Electronically signed by Diego Haas DO> Cosigner Signature (if applicable): CC: ~ Signed [facility] Work Phone: 1([phone]) 315-318508-14-2023 History and physical note Author Uziel Mahmood [facility] March 03, 2023 6:25pm Note Date/Time March 03, 2023 3: 28pm [facility] Medical Records Department [address] [facility] [place] [address] H&P Exam - Hospitalist 03/03/23 1523 MR#: [id number] Acct: [id number] Name: KALIE DESIR Rep #:[id number] : [...] renal function. Blood sugars are at 246. [facility] Medical History Anxiety and depression Asthma Cannabis [...] 88.7 H, Lymph % (Auto) 6.3 L, Candler %(Auto) 3.7, Eos % (Auto) 0.4, Baso [...] Clarity Clear, Urine pH 5.0, Ur Specific [place] 1.020, Urine Protein 15 H, Urine Glucose [...] with colleagues Charges/Coding Visit Charges Inpatient E&M: 38261 Init Hosp L3 03/03/23 1825 <Electronically signed by Uziel Mahmood MD> Cosigner Signature (if applicable): CC: Minnie Hodge; Dr. Uziel Mahmood MD~ Signed [facility] Work Phone: [phone]) 373-446508-14-2023 Discharge summary Author Kaylen Morin [facility] March 03, 2023 4:20pm Note Date/Time March 03, 2023 2: 36pm [facility] Medical Records Department [address] [place] [address] Emergency Department Summary 03/03/23 MR#: [id number] Acct: [id number] Name: KALIE DESIR Rep #:[id number] : [...] 88.7 H Lymph % (Auto) 6.3 L Candler % (Auto) 3.7 Eos % (Auto) 0.4 [...] Color Urine Clarity Urine pH Ur Specific [place] Urine Protein Urine Glucose (UA) Urine Ketones [...] (Auto) Neut % (Auto) Lymph % (Auto) Candler % (Auto) Eos % (Auto) Baso % [...] Clarity Clear Urine pH 5.0 Ur Specific [place] 1.020 Urine Protein 15 H Urine Glucose [...] ketoacidosis), Esophagitis Disposition Disposition: [facility] What to do if you have Problems For any increased pain, shortness of breath, bleeding, nausea or vomiting, chestpain, or any unexpected problems, contact your Primary Care Provider. Call [facility] ([phone]) or report to the closest Emergency Room. Call 911 if necessary. 03/03/23 1620 <Electronically signed by Kaylen Morin MD> Cosigner Signature (if applicable): CC: Minnie Hodge ~ Signed [facility] Work Phone: [phone]) 187-604108-14-2023 History of Present illness Narrative* Chasity Hodge [...] scanning reader (FREESTYLE DANIELA 14 DAY READER) [facility] For blood sugar checks 4 times aday (Patient not taking: Reported on 10/16/2022) Insulin [place], Disposable, (OPAL PEN NEEDLE) 32 gauge x [...] notified. Chasity Hodge PA-C documented in this encounterNorwalk Memorial Hospital07-31-2023 Consult note Author Suzi Benito [facility] February 17, 2023 10:28am Note Date/Time February 17, 2023 10:2 8am [facility] Medical Records Department [address] [place] [address] Counseling Note - Pharmacy 02/17/23 1027 MR#: [id number] Acct: [id number] Name: KALIE DESIR Rep #:[id number] : 2000 22 From: Suzi Benito PCP: Dr. Erika Sen MD Status:ADM I N Y Location: [facility] [id number] Pharmacy [place] Med Reconciliation Pharmacy Service has [...] Signature (if applicable): Date CC: ~ Signed [facility] Work Phone: 1([phone]) 849-700407-31-2023 Discharge summary Author Nathan Pineda [facility] February 17, 2023 9:51am Note Date/Time February 17, 2023 9:46 am [facility] Medical Records Department [address] [place] [address] Instructions for Home/Discharge Instructions 02/17/23 0945 MR#: [id number] Acct: [id number] Name: KALIE DESIR Rep #:[id number] : [...] MD; Dr. Jackeline Akhtar MD ~ Signed [facility] Work Phone: [phone]) 422-507407-30-2023 Progress note Author Jackeline Akhtar [facility] February 16, 2023 8:41am Note Date/Time February 16, 2023 7:35 am [facility] Medical Records Department [address] [place] [address] Progress Note - Hospitalist 02/16/23 0734 MR#: [id number] Acct: [id number] Name: KALIE DESIR Rep #:[id number] : [...] 89.7 H, Lymph % (Auto) 4.2 L, Candler % (Auto) 4.9, Eos % (Auto) 0.0, [...] Clarity Clear, Urine pH 5.0, Ur Specific [place] 1.025, Urine Protein 30 H, Urine Glucose [...] 87.9 H, Lymph % (Auto) 6.5 L, Candler % (Auto) 5.1, Eos % (Auto) 0.0, [...] 16:46 EDT Reading Location ID and State: [facility] / [place] , Service support , Physical Exam Narrative [...] 50 Minutes Charges/Coding Visit Charges Inpatient E&M: 74960 Subs Hosp L3 02/16/23 0841 <Electronically signed by Jackeline Akhtar MD> Cosigner Signature (if applicable): CC: ~ Signed [facility] Work Phone: [phone]) [phone] Discharge summary Author Juan Carlos Pay [facility] February 15, 2023 11:46pm Note Date/Time February 15, 2023 2:37 pm [facility] Medical Records Department [address] [place] [address] Emergency Department Summary 02/15/23 MR#: [id number] Acct: [id number] Name: KALIE DESIR Rep #:[id number] : [...] <DONOVAN Billingsley - Last Filed: 02/15/23 17:13> [facility] Medical History Anxiety and depression Anxiety and [...] Ox 99 Oxygen Delivery Method Room Air [facility] <Naveed VasquezDONOVAN - Last Filed: 02/15/23 17:13> [facility] Lab Data Labs: Laboratory Results - last 24 hr 02/15/23 02/15/23 02/15/23 14:21 16:05 16:36 WBC 23.4 H RBC 5.61 H Hgb 16.1 H Hct 44.8 MCV 79.9 L MCH 28.7 MCHC 35.9 RDW Std Deviation 35.8 RDW Coeff of Marilynn 12.7 Plt Count 548 H MPV 8.8 Immature Gran % (Auto) 0.900 Neut % (Auto) 89.7 H Lymph % (Auto) 4.2 L Candler % (Auto) 4.9 Eos % (Auto) 0.0 [...] Tachycardia Comments: Sinus tachycardia, rate 132 bpm TN 122 ms, QRS duration 82 ms, no [...] Mcgregor, DO - Last Filed: 02/15/23 23:46> [facility] Lab Data Attestation: I reviewed the patient's [...] 89.7 H Lymph % (Auto) 4.2 L Candler % (Auto) 4.9 Eos % (Auto) 0.0 [...] (excluding procedures): 30-74 minutes, Discussing w/Patient &/or Family/Platinum And Palladium Kettle Tender and Performing Direct Patient Care at Bedside Discharge Plan Dx/Rx/DC Orders Clinical Impression: Acute kidney injury, Acute dehydration, Acute nausea with nonbilious vomiting, DKA, type 1, Acute hypokalemia Disposition Disposition: [facility] Discharge Date/Time: 02/15/23 18:20 What to do if you have Problems For any increased pain, shortness of breath, bleeding, nausea or vomiting, chestpain, or any unexpected problems, contact your Primary Care Provider. Call [facility] ([phone]) or report to the closest Emergency Room. Call 911 if necessary. 02/15/23 1713 <Electronically signed by Naveed MAN> Cosigner Signature (if applicable): 02/15/23 2346 <Electronically signed by Juan Carlos Mcgregor DO> CC: Dr. Erika Sen MD ~ Signed [facility] Work Phone: [phone]) 395-237507-29-2023 History and physical note Author [facility] February 15, 2023 5:24pm Note Date/Time February 15, 2023 4:58 pm [facility] Medical Records Department [address] [place] [address] H&P Exam - Hospitalist 02/15/23 1658 MR#: [id number] Acct: [id number] Name: KALIE DESIR Rep #:[id number] : [...] to intensive care unit for further manage [facility] Medical History Anxiety and depression Anxiety and [...] 89.7 H, Lymph % (Auto) 4.2 L, Candler % (Auto) 4.9, Eos % (Auto) 0.0, [...] 16:46 EDT Reading Location ID and State: [address] [place] [address] , Service support , Assessment & Plan [...] Charges/Coding Multi Select Codes Hospitalists' Procedures Procedures: 62644 Critial Care 1st Hr and 85277 Critial Care Addl 30 Min 02/15/23 1724 <Electronically signed by Jackeline Akhtar MD> Cosigner Signature (if applicable): CC: Dr. Erika Sen MD; Dr. Jackeline Akhtar MD~ Signed [facility] Work Phone: [phone] Miscellaneous Notes* Telephone Encounter - NISSA Berg - 01/16/2023 10:11 AM EDT Behavioral Health Social Work Progress Note Patient identified for [facility] from: PCP Reason for referral: Resources Behavioral Health Resources: Psychiatry med management [facility] encounter type: Telephone Encounter Attempts to Outreach: 1 attempt Referral made: Psychiatry - Internal, Psychiatry - External Psychiatry-Internal referral type: Medication Management Psychiatry-External referral type: Medication Management Patient reported that caregiver was able to meet their needs today?: N/A Phone call placed today that went to [facility]. Left my contact information and brief nature of call. Initial outreach also completed via [employer] sending list of in network providers with insurance. NISSA Berg-S January 16, 2023 documented in this encounterNorwalk Memorial Hospital06-29-2023 History of Present illness Narrative* Chasity Hodge [...] madepoor purchasing decisions. She recently bought a [employer] Jeep after getting a job and then [...] scanning reader (FREESTYLE DANIELA 14 DAY READER) [facility] For blood sugar checks 4 times aday (Patient not taking: Reported on 10/16/2022) Insulin [place], Disposable, (OPAL PEN NEEDLE) 32 gauge x [...] to call to set up visit with medical behavioral [facility] and I have place a consult to [facility] to help bridge the gap. I advised patient that in near future she needs to return for PE and routine care. Okay to wait until psych health is being addressed appropriately. Chasity Hodge PA-C I spent a total of 38 minutes on the date of the service which included preparing to see the patient, [id number] patient care, completing clinical documentation, obtaining and/or reviewing separately obtained history, performing a medically appropriate examination, counseling and educating the pat ient/family/caregiver, ordering medications, tests, or procedures, and communicating results to thepatient/family/caregiver. documented in this encounterNorwalk Memorial Hospital06-20-2023 Miscellaneous Notes* Telephone Encounter - Srini Gerber LPN - 01/07/2023 8:15 AM EDT Spoke with pt. She states she accidentally sent request to wrong provider and did get this refilled. Srini Gerber LPN * Telephone Encounter - Juan Carlos Candelario MD - 01/06/2023 10:10 PM EDT Advise patient she needs to be calling her er tech for her insulin. If she stopped seeing [...] 01/16/23 Soo Callaway Ma documented in this encounterNorwalk Memorial Hospital06-06-[address] Canada [facility] December 24, 2022 5:17am Note Date/Time December 24, 2022 1:13a m [facility] Medical Records Department [address] [place] [address] Emergency Department Summary 12/24/22 MR#: [id number] Acct: [id number] Name: KALIE DESIR Rep #:[id number] : [...] 93.0 H Lymph % (Auto) 3.4 L Cand[place] % (Auto) 2.4 Eos % (Auto) 0.0 [...] Clarity Clear Urine pH 6.0 Ur Specific [place] 1.025 Urine Protein 100 H Urine Glucose [...] (Auto) Neut % (Auto) Lymph % (Auto) Cand[place] % (Auto) Eos % (Auto) Baso % [...] Color Urine Clarity Urine pH Ur Specific [place] Urine Protein Urine Glucose (UA) Urine Ketones [...] (Auto) Neut % (Auto) Lymph % (Auto) Cand[place] % (Auto) Eos % (Auto) Baso % [...] Color Urine Clarity Urine pH Ur Specific [place] Urine Protein Urine Glucose (UA) Urine Ketones [...] (Auto) Neut % (Auto) Lymph % (Auto) Cand[place] % (Auto) Eos % (Auto) Baso % [...] Color Urine Clarity Urine pH Ur Specific [place] Urine Protein Urine Glucose (UA) Urine Ketones [...] procedures): 30-74 minutes (40), Discussing w/Patient &/or Family/Platinum And Palladium Kettle Tender, Arranging Admission or Transfer and PerformingDirect Patient [...] Provider] - Disposition Disposition: [facility] Care [facility] What to do if you have Problems For any increased pain, shortness of breath, bleeding, nausea or vomiting, chestpain, or any unexpected problems, contact your Primary Care Provider. Call [facility] ([phone]) or report to the closest Emergency Room. Call 911 if necessary. 12/24/22516 <Electronically signed by Danitza Canada DO> Cosigner Signature (if applicable): CC: Dr. Erika Sen MD ~ Signed [facility] Work Phone: 1([phone]) 416-772605-06-[address] Akhtar [facility] November 23, 2022 8:55am Note Date/Time November 23, 2022 8:55am [facility] Medical Records Department [address] [place], [place] [address] [address] Discharge Summary 11/23/22 0853 MR#: [id number] Acct: [id number] Name: KALIE DESIR Rep #:[id number] : 2000 22 From: Jackeline Akhtar MD PCP: Dr. Erika Sen MD Status:ADM I N Location: ICU [place] [address] 2-1 Providers Date of Admission: 11/21/22 Date [...] discharge for insulin pending evaluation by patient's er tech 2. Acute kidney injury ? Patient baseline [...] (Auto) 76.4 H, Lymph % (Auto) 18.0L, Cand[place] % (Auto) 4.7, Eos % (Auto) 0.2, [...] Provider: Jackeline Akhtar Primary Care Provider: Erika Sen Consulting Providers: Delia Navarro Discharge Orders/Prescriptions Prescriptions: [...] Self Care Charges/Coding Visit Charges Inpatient E&M: 99172 Disch Hosp >30min 11/23/22 0855 <Electronically signed by Jackeline Akhtar MD> Cosigner Signature (if applicable): CC: Dr. Erika Sen MD; Dr. Jackeline Akhtar MD~ Signed [facility] Work Phone: 1(957) 411-598905-06-[address] Akhtar [facility] November 23, 2022 8:44am Note Date/Time November 23, 2022 6:54am [facility] Medical Records Department [address] [place] [address] Progress Note - Hospitalist 11/23/22 0653 MR#: [id number] Acct: [id number] Name: KALIE DESIR Rep #:[id number] : [...] (Auto) 76.4 H, Lymph % (Auto) 18.0L, [place] % (Auto) 4.7, Eos % (Auto) 0.2, [...] documentation, 35Minutes Charges/Coding Visit Charges Inpatient E&M: 30233 Subs Hosp L2 11/23/22 0844 <Electronically signed by Jackeline Akhtar MD> Cosigner Signature (if applicable): CC: ~ Signed [facility] Work Phone: 1(693) 690-496305-05-[address] Akhtar [facility] November 22, 2022 8:44am Note Date/Time November 22, 2022 7:23am [facility] Medical Records Department [address] [facility] [place] [address] Progress Note - Hospitalist 11/22/22 0720 MR#: [id number] Acct: [id number] Name: KALIE DESIR Rep #:[id number] : [...] Clarity Clear, Urine pH 6.0, Ur Specific [place] 1.020, Urine Protein 100 H, Urine Glucose [...] 95.2 H, Lymph % (Auto) 2.9 L, Candler % (Auto) 1.0, Eos % (Auto) 0.0, [...] 89.1 H, Lymph % (Auto) 6.7 L, [place] % (Auto) 3.7, Eos % (Auto) 0.0, [...] documentation, 55Minutes Charges/Coding Visit Charges Inpatient E&M: 64030 Subs Hosp L3 11/22/22 0844 <Electronically signed by Jackeline Akhtar MD> Cosigner Signature (if applicable): CC: ~ Signed [facility] Work Phone: 1(506) 910-727105-04-[address] Ruiz [facility] November 21, 2022 9:47pm Note Date/Time November 21, 2022 5:36pm [facility] Medical Records Department [address] [place] [address] Emergency Department Summary 11/21/22 MR#: [id number] Acct: [id number] Name: KALIE DESIR Rep #:[id number] : [...] She feels dehydrated,and is here for evaluation. [facility] <DONOVAN Billingsley - Last Filed: 11/21/22 19:46> [facility] Medical History Anxiety and depression Asthma Diabetes [...] Blood Pressure Mean 94 Pulse Ox 98 [facility] <DONOVAN Billingsley - Last Filed: 11/21/22 19:46> [facility] Lab Data Labs: Laboratory Results - last 24 hr 11/21/22 11/21/22 11/21/22 17:11 17:35 17:35 WBC 21.0 H RBC 5.38 Hgb 15.2 H Hct 46.6 MCV 86.6 MCH 28.3 MCHC 32.6 RDW Std Deviation 39.8 RDW Coeff of Marilynn 12.8 Plt Count 440 MPV 9.4 Immature Gran % (Auto) 0.600 Neut % (Auto) 95.2 H Lymph % (Auto) 2.9 L Candler % (Auto) 1.0 Eos % (Auto) 0.0 [...] MCHC RDW Std Deviation RDW Coeff of Mariylnn Plt Count MPV Immature Gran % (Auto) Neut % (Auto) Lymph % (Auto) Candler % (Auto) Eos % (Auto) Baso % [...] Ruiz MD - Last Filed: 11/21/22 21:47> [facility] Narrative Medical decision making narrative: I have [...] 95.2 H Lymph % (Auto) 2.9 L Cand[place] % (Auto) 1.0 Eos % (Auto) 0.0 [...] (Auto) Neut % (Auto) Lymph % (Auto) [place] % (Auto) Eos % (Auto) Baso % [...] (excluding procedures): 30-74 minutes, Discussing w/Patient &/or Family/Platinum And Palladium Kettle Tender, Discussing w/Consultants, Arranging Admission or Transfer, Performing Direct Patient Care at Bedside and - (40 minutes see MDM) Discharge Plan Dx/Rx/DC Orders Clinical Impression: Diabetic ketoacidosis, Leukocytosis, unspecified, Nausea & vomiting Disposition Disposition: [facility] Discharge Date/Time: 11/21/22 20:28 What to do if you have Problems For any increased pain, shortness of breath, bleeding, nausea or vomiting, chestpain, or any unexpected problems, contact your Primary Care Provider. Call [facility] ([phone]) or report to the closest Emergency Room. Call 911 if necessary. 11/21/221945 <Electronically signed by Naveed MAN> Cosigner Signature (if applicable): 11/21/222146 <Electronically signed by Lance Ruiz MD> CC: Dr. Erika Sen MD ~ Signed [facility] Work Phone: 1(450) 416-882605-04-2023 History and physical note Author Dr. Navarro [facility] November 21, 2022 7:57pm Note Date/Time November 21, 2022 7:18pm [facility] Medical Records Department [address] [place] [address] H&P Exam - Hospitalist 11/21/22 1914 MR#: [id number] Acct: [id number] Name: KALIE DESIR Rep #:[id number] : [...] at age 9 who presents to the [facility] ED onb 11/21/22 with history of [...] mg IV x1 initiated on insulin drip. [facility] Medical History Anxiety and depression Asthma Diabetes [...] 95.2 H, Lymph % (Auto) 2.9 L, [place] % (Auto) 1.0, Eos % (Auto) 0.0, [...] at age 9 who presents to the [facility] ED onb 11/21/22 with history of [...] 60 minutes. Charges/Coding Visit Charges Inpatient E&M: 49540 Init Hosp L2 11/21/221956 <Electronically signed by Delia Navarro MD> Cosigner Signature (if applicable): CC: Dr. Delia Navarro MD; Dr. Erika Sen MD~ Signed [facility] Work Phone: 1(597) 694-589106-13-2022 History of Present illness Narrative* Chasity Hodge PA-C - 12/31/2021 10:50 AM EDT Chief Complaint Patient presents with: Back Pain HPI Kalie Desir is a 21 year old female who presents here today for Above Complaints.. Patient reports back pain for the past 2 weeks. She was seen in [facility] and given medrol reba but due to [...] not taking: Reported on 07/02/2021 ) Insulin [place], Disposable, (OPAL PEN NEEDLE) 32 gauge x [...] THERAPY Chasity Hodge PA-C [facility] History of Present illness Narrative* Aris Chow APRN.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 MANAGER - 12/26/2021 3:47 PM EDT Images from [...] scanning reader (FREESTYLE DANIELA 14 DAY READER) [facility] For blood sugar checks 4 times aday [...] Each by SUBDERMAL route as directed. Insulin [place], Disposable, (OPAL PEN NEEDLE) 32 gauge x [...] plan Aris Chow APRN.CNP [facility] History of Present illness Narrative* Shanique Pierre [...] IV DATA: Not applicable SIGNED BY: Lyubov Ortiz May 05, 2020 1:44 PM [facility] History of Past illness Narrative* Problem Noted Date Resolved Date Strain of back 07/29/2016 03/04/2019 Cervicalgia 07/29/2016 03/04/2019 documented as of this encounter (statuses as of 12/26/2021) [facility] of [facility] illness Narrative* Problem Noted Date Resolved Date Strain of back 07/29/2016 03/04/2019 Cervicalgia 07/29/2016 03/04/2019 documented as of this encounter (statuses as of 12/31/2021) [facility] of Past illness Narrative* Problem Noted Date Resolved Date Strain of back 07/29/2016 03/04/2019 Cervicalgia 07/29/2016 03/04/2019 documented as of this encounter (statuses as of 01/07/2023) [facility] illness Narrative* Problem Noted Date Resolved Date Strain of back 07/29/2016 03/04/2019 Cervicalgia 07/29/2016 03/04/2019 documented as of this encounter (statuses as of 01/16/2023) [facility] illness Narrative* Problem Noted Date Resolved Date Strain of back 07/29/2016 03/04/2019 Cervicalgia 07/29/2016 03/04/2019 documented as of this encounter (statuses as of 01/16/2023) [facility] Narrative* Problem Noted Date Diagnosed Date Resolved Date Strain of back 07/29/2016 03/04/2019 Cervicalgia 07/29/2016 03/04/2019 documented as of this encounter (statuses as of 03/03/2023) [facility] Narrative* Problem Noted Date Diagnosed Date Resolved Date Strain of back 07/29/2016 03/04/2019 Cervicalgia 07/29/2016 03/04/2019 documented as of this encounter (statuses as of 03/27/2023) [facility] Narrative* Problem Noted Date Diagnosed Date Resolved Date Strain of back 07/29/2016 03/04/2019 Cervicalgia 07/29/2016 03/04/2019 documented as of this encounter (statuses as of 04/07/2023) [facility] Author Nathan Pineda [facility] October 17, 2023 2:30pm Note Date/Time October 17, 2023 2:2 0pm [facility] Medical Records Department [address] [place] [address] Instructions for Home/Discharge Instructions 10/17/23 1420 MR#: [id number] Acct: [id number] Name: KALIE DESIR Rep #:[id number] : [...] next 24 to 48 hours Contact your er tech on Friday to get refills on your [...] Nathan Pineda DO>Nathan Pineda DO CC: Minnie Hodge; Dr. Damien Villagran DO ~ Signed [facility] Work Phone: Evaluation note* Diagnosis Onset Date Resolution Status Insulin pump titration chron ic Presence of insulin pump chr onic Type I diabetes mellitus chr onic Numbness and tingling acute Insulin pump titration chron ic Presence of insulin pump chr onic Type I diabetes mellitus chr onic [facility] Work Phone: Evaluation note* Diagnosis Acute midline low back pain without sciatica- Primary [facility]* Diagnosis Upper back strain, initial encounter- Primary documented in this encounter [facility] noteNo assessment information availableWUniversity Hospitals [facility] Work Phone: Evaluation note* Diagnosis Onset Date Resolution Status Presence of insulin pump chr onic Type I diabetes mellitus chr onic DKA (diabetic ketoacidoses) acute Leukocytosis acute Nausea & vomiting acute [facility] Work Phone: Evaluation note* Diagnosis Onset Date Resolution Status Presence of insulin pump chr onic Type I diabetes mellitus chr onic DKA (diabetic ketoacidoses) resolved Leukocytosis resolved Nausea & vomiting resolved FRANKLIN (acute kidney injury) ac shahid DKA, type 1 acute UTI (urinary tract infection) acute [facility] Work Phone: Evaluation note* Diagnosis Depression, unspecified depression type- Primary Bipolar affective disorder, remission status unspecified ([facility]) documented in this encounter [facility] note* Diagnosis Onset Date Resolution Status DKA (diabetic ketoacidoses) resolved Leukocytosis resolved Nausea & vomiting resolved [place] (acute kidney injury) re solved Hypokalemia resolved Hypophosphatemia resolved UTI (urinary tract infection) resolved Type 1 diabetes mellitus with hyperglycemia chronic DKA (diabetic ketoacidosis) resolved Acute dehydration acute Acute hypokalemia acute Acute kidney injury acute Acute nausea with nonbilious vomiting acute DKA, type 1 acute [facility] Work Phone: Evaluation note* Diagnosis Onset [...] acute DKA, type 1 acute Esophagitis acute [facility] Work Phone: Evaluation note* Diagnosis Type 1 diabetes mellitus without complication ([facility])- Primary Type I (juvenile type) diabetes mellitus without mention of complication, not stated as uncontrolled Nausea Nausea alone documented in this encounter [facility] note* Diagnosis Exposure to SARS-associated coronavirus- Primary Sore throat Acute pharyngitis documented in this encounter [facility] note* Diagnosis Onset Date Resolution Status Type 1 diabetes mellitus with hyperglycemia chronic Non-compliance chronic Type 1 diabetes mellitus with hyperglycemia chronic [facility] Work Phone: Evaluation note* Diagnosis Onset Date Resolution Status Non-compliance chronic Type 1 diabetes mellitus with hyperglycemia chronic Diabetic ketoacidosis acute Hx of type 1 diabetes mellitus acute Tachycardia acute [facility] Work Phone: Evaluation note* Diagnosis Onset Date Resolution Status Non-compliance chronic Type 1 diabetes mellitus with hyperglycemia chronic Hx of type 1 diabetes mellitus acute [facility] Work Phone: Evaluation note* Diagnosis Onset Date Resolution Status Non-compliance chronic Type 1 diabetes mellitus with hyperglycemia chronic Hx of type 1 diabetes mellitus acute Acute colitis acute Appendicitis acute DKA (diabetic ketoacidosis) acute Insulin dependent type 1 diabetes mellitus acute Nausea & vomiting acute Non-compliance chronic Type 1 diabetes mellitus with hyperglycemia [facility] Work Phone: Evaluation note* Diagnosis Onset Date Resolution Status Non-compliance chronic Type 1 diabetes mellitus with hyperglycemia chronic Hx of type 1 diabetes mellitus acute Abdominal pain acute Acute colitis acute Appendicitis acute DKA (diabetic ketoacidosis) acute Insulin dependent type 1 diabetes mellitus acute Nausea & vomiting acute Non-compliance chronic Type 1 diabetes mellitus with hyperglycemia [facility] Work Phone: Evaluation note* Diagnosis Type 1 diabetes mellitus with hyperglycemia (HCC)- Primary Type I (juvenile type) diabetes mellitus without mention of complication, not stated as uncontrolled Encounter for lipid screening for cardiovascular disease Screening for lipoid disorders documented [facility] this encounter [facility]* Diagnosis Type 1 diabetes mellitus without complication (HCC)- Primary Type I (juvenile type) diabetes mellitus without mention of complication, not stated as uncontrolled [facility] this encounter [facility]* Diagnosis Well adult exam- Primary Routine [...] stated as uncontrolled [facility]* Diagnosis Type 1 diabetes mellitus without complication (HCC)- Primary Type I (juvenile type) diabetes mellitus without mention of complication, not stated as uncontrolled [facility] encounter [facility]* Diagnosis Encounter for gynecological examination (general) [...] reinsertion of Nexplanon [facility] encounter [facility]* Diagnosis Insertion of implantable subdermal contraceptive- Primary documented in this encounter [facility]* Diagnosis Pain- Primary Generalized pain Pain Generalized pain documented [facility] this encounter [facility]* Diagnosis Pain Generalized pain documented [facility] this encounter [facility]* Diagnosis Diabetes mellitus type 1, controlled, without complications (HCC)- Primary Type I (juvenile type) diabetes mellitus without mention of complication, not stated as uncontrolled documented [facility] this encounter [facility]* Diagnosis Type 1 diabetes mellitus without complication (HCC)- Primary Type I (juvenile type) diabetes mellitus without mention of complication, not stated as uncontrolled documented [facility] this encounter [facility]* Diagnosis Hand pain, right Pain in limb documented [facility] this encounter [facility]* Diagnosis Gastroenteritis- Primary Other and unspecified noninfectious gastroenteritis and colitis [facility]* Diagnosis Bacterial sinusitis- Primary Unspecified sinusitis (chronic) Diarrhea, unspecified type documented [facility] this encounter [facility]* Diagnosis Nexplanon removal- Primary Surveillance of previously prescribed implantable subdermal contraceptive documented [facility] this encounter [facility]* Diagnosis Diabetes mellitus type 1, controlled, without complications (HCC) Type I (juvenile type) diabetes mellitus without mention of complication, not stated as uncontrolled documented [facility] this encounter [facility]History [facility] Author Dr. Navarro [facility] November 21, 2022 7:57pm Note Date/Time November 21, 2022 7:18pm [facility] Medical Records Department [address] [place] [address] H&P Exam - Hospitalist 11/21/22 1914 MR#: [id number] Acct: [id number] Name: KALIE DESIR Rep #:[id number] : [...] at age 9 who presents to the [facility] ED onb 11/21/22 with history of [...] mg IV x1 initiated on insulin drip. [facility] Medical History Anxiety and depression Asthma Diabetes [...] 95.2 H, Lymph % (Auto) 2.9 L, [place] % (Auto) 1.0, Eos % (Auto) 0.0, [...] at age 9 who presents to the [facility] ED onb 11/21/22 with history of [...] 60 minutes. Charges/Coding Visit Charges Inpatient E&M: 41267 Init Hosp L2 11/21/221956 <Electronically signed by Delia Navarro MD> Cosigner Signature (if applicable): CC: Dr. Delia Navarro MD; Dr. Erika Sen MD~ Signed [facility] Work Phone: History and physical note Author Jackeline Akhtar [facility] February 15, 2023 5:24pm Note Date/Time February 15, 2023 4:58 pm [facility] Medical Records Department [address] [place] [address] H&P Exam - Hospitalist 02/15/23 5411 MR#: [id number] Acct: [id number] Name: KALIE DESIR Rep #:[id number] : [...] to intensive care unit for further manage [facility] Medical History Anxiety and depression Anxiety and [...] 89.7 H, Lymph % (Auto) 4.2 L, [place] % (Auto) 4.9, Eos % (Auto) 0.0, [...] 16:46 EDT Reading Location ID and State: [facility] / [place] , Service support , Assessment & Plan [...] Charges/Coding Multi Select Codes Hospitalists' Procedures Procedures: 34369 Critial Care 1st Hr and 12171 Critial Care Addl 30 Min 02/15/23 1724 <Electronically signed by Jackeline Akhtar MD> Cosigner Signature (if applicable): CC: Dr. Erika Sen MD; Dr. Jackeline Akhtar MD~ Signed [facility] Work Phone: History and physical note Author Damien Villagran [facility] October 16, 2023 5:58pm Note Date/Time October 16, 2023 5:5 2pm [facility] Medical Records Department [address] [place] [address] H&P Exam - Hospitalist 10/16/23 1748 MR#: [id number] Acct: [id number] Name: KALIE DESIR Rep #:[id number] : [...] well as started on an insulin drip. [facility] Medical History Anxiety and depression Asthma Cannabis [...] 93.3 H, Lymph % (Auto) 3.7 L, [place] % (Auto) 2.1, Eos % (Auto) 0.0, [...] Clarity Clear, Urine pH 5.0, Ur Specific [place] 1.025, Urine Protein 100 H, Urine Glucose [...] * Patient has a follow-up appointment with [place] [facility] on November 09. * Check an A1c VTE prophylaxis with enoxaparin Patient warrants admission with high risk medication with an insulin drip. Thiscannot be safely managed at home because of the risk of worsening DKA could be deadly. Charges/Coding Visit Charges Inpatient E&M: 02870 Init Hosp L3 10/16/23 3845 <Electronically signed by Damien Villagran DO> Cosigner Signature (if applicable): CC: Minnie Hodge; Dr. Damien Villagran, ~ Signed [facility] Work Phone: Hospital Discharge instructions Additional Instructions Please take the antibiotic as directed to prevent any secondary infection because of your immunocompromise status from your type 1 diabetes. Return to the ER should you have any further concerns or worsening of symptomsWooSt. Rita's Hospital Work Phone: Hospital Discharge instructions Additional Instructions Continue to take NSAIDs (Aleve) as we discussed. Ice to the area. Wear thumb spica splint especially when at work to help rest the joint. Please follow-up with orthopedics.[facility] Work Phone: Reason for referral (narrative)* Outpatient Procedure (Routine) - Authorized Specialty Diagnoses / Procedures Referred By Papo keating Referred To Contact [facility] Diagnoses Encounter for removal and reinsertion of Nexplanon Procedures NEXPLANON REMOVAL REMOVAL NON-BIODEGRADABLE DRUG DELIVERY IMPLANT Evelyn Carr MD [address] [place] [address] [address] [place] [address] Referral ID Status Reason Start Date Expiration Date Visits Requested Visits Authorized [id number] Authorized Auto-Generat ed Referral 03/01/2024 03/01/2025 1 1 * Outpatient Procedure (Routine) - Authorized Specialty Diagnoses / Procedures Referred By Papo keating Referred To Contact [facility] Diagnoses Insertion of Nexplanon Procedures NEXPLANON INSERTION ETONOGESTREL IMPLANT SYSTEM INSERT DRUG IMPLANT DEVICE Evelyn Carr MD [address] [place] [address] [facility] [place] [place] [address] Referral ID Status Reason Start Date Expiration Date Visits Requested Visits Authorized [id number] Authorized Auto-Generat ed Referral 03/01/2024 03/01/[address] [facility] for referral (narrative)* Diagnostic Procedure Only (Urgent) - Closed Specialty Diagnoses / Procedures Referred By Contac t Referred To Contact [facility] Diagnoses Pain Procedures XR LUMBAR GENERAL 3V AP/LAT/L5-S1 RADEX SPINE LUMBOSACRAL 2/3 VIEWS Rosa Isela Gonzalez APRN.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 MANAGER [address] [place] [address] [place] [address] Referral ID Status Reason Start Date Expiration Date V isits Requested Visits Authorized [id number] Closed Auto-Generate d Referral 03/25/2024 04/24/2025 1 1 * Diagnostic Procedure Only (Urgent) - Closed Specialty Diagnoses / Procedures Referred By Contac t Referred To Contact [facility] Diagnoses Pain Procedures XR WRIST INJURY 4V PA/LAT/OBL/SCAPH RIGHT RADEX WRIST COMPLETE MINIMUM 3 VIEWS Rosa Isela Gonzalez APRN.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 MANAGER [address] [place] [address] [place] [address] Referral ID Status Reason Start Date Expiration Date V isits Requested Visits Authorized [id number] Closed Auto-Generate d Referral 03/25/2024 04/24/[address] [facility] for referral (narrative)* Diagnostic Procedure Only (Urgent) - Closed Specialty Diagnoses / Procedures Referred By Contac t Referred To Contact [facility] IMAG[facility] Diagnoses Pain Procedures XR LUMBAR GENERAL 3V AP/LAT/L5-S1 RADEX SPINE LUMBOSACRAL 2/3 VIEWS Rosa Isela Gonzalez APRN.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 MANAGER [address] [place] [address] [place] [address] Referral ID Status Reason Start Date Expiration Date V isits Requested Visits Authorized [id number] Closed Auto-Generate d Referral 03/25/2024 04/24/2025 1 1 * Diagnostic Procedure Only (Urgent) - Closed Specialty Diagnoses / Procedures Referred By Contac t Referred To Contact XR IMAGING Diagnoses Pain Procedures XR WRIST INJURY 4V PA/LAT/OBL/SCAPH RIGHT RADEX WRIST COMPLETE MINIMUM 3 VIEWS Rosa Isela Gonzalez APRN.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 MANAGER [address] [place] [address] [place] [address] Referral ID Status Reason Start Date Expiration Date V isits Requested Visits Authorized [id number] Closed Auto-Generate d Referral 03/25/2024 04/24/[address] [facility] for referral (narrative)* Outpatient Procedure (Routine) - New Request Specialty Diagnoses / Procedures Referred By Contac t Referred To Contact [facility] Diagnoses Nexplanon removal Procedures NEXPLANON REMOVAL REMOVAL NON-BIODEGRADABLE DRUG DELIVERY IMPLANT Devika Tarango MD [address] [place] [address] [facility] [address] [place] [address] Referral ID Status Reason Start Date Expiration Date Visits Requested Visits Authorized [id number] New Request Auto-Generat ed Referral 08/19/2024 08/19/[address] [facility] for referral (narrative)No reason for referral information availableWUniversity Hospitals [facility] Work Phone: Reason for visit Narrative* Diagnostic Procedure Only (Urgent) - Closed Specialty Diagnoses / Procedures Referred By Contac t Referred To Contact XR IMAGING Diagnoses Pain Procedures XR LUMBAR GENERAL 3V AP/LAT/L5-S1 RADEX SPINE LUMBOSACRAL 2/3 VIEWS Rosa Isela Gonzalez APRN.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 MANAGER [address] [place] [address] [place] [address] Referral ID Status Reason Start Date Expiration Date V isits Requested Visits Authorized [id number] Closed Auto-Generate d Referral 03/25/2024 04/24/2025 1 1 [facility] Summary Purpose Family History No Family [...] No March 21 021 6:50am Power of Drapery Cutter Yes March 21, 2021 6:50am Advance Directive Response Recorded Date/ Time Advance Directives No June 28, 2016 10:04am Living Will No July 23 7:44pm Power of Drapery Cutter No July 23 7:44pm Advance Directive Response Recorded Date/ Time Advance Directives No June 28, 2016 11:04am Living Will No November 21, 2022 5: 12pm Power of Drapery Cutter No November 21, 2022 5:12pm Advance Directive Response Recorded Date/ Time Name of Medical Power of Drapery Cutter Lee garcia November 21, 2022 8:35pm Advance Directives No June 28, 2016 11:04am Living Will No November 21, 2022 8: 35pm Power of Drapery Cutter Yes November 21, 2022 8:35pm Advance Directive Response Recorded Date/ Time Name of Medical Power of Drapery Cutter Lee garcia November 21, 2022 8:35pm Advance Directives No June 28, 2016 11:04am Living Will No December 23, 2022 1 1:50pm Power of Drapery Cutter No December 23, 2022 11:50pm Advance Directive Response Recorded Date/ Time Name of Medical Power of Drapery Cutter Lee garcia November 21, 2022 8:35pm Name of Medical Power of Drapery Cutter Lee garcia (fiance) December 24, 2022 6:23am Name of Medical Power of Drapery Cutter LITZY Casas February 15, 2023 3:01pm Advance Directives No January 13 3:37pm Living Will No February 15, 2023 3:01pm Power of Drapery Cutter Yes February 15 3:01pm Advance Directive Response Recorded Date/ Time Name of Medical Power of Drapery Cutter Lee garcia November 21, 2022 8:35pm Name of Medical Power of Drapery Cutter Lee garcia ([facility]) December 24, 2022 6:23am Name of Medical Power of Drapery Cutter Lee Chandler y, POA February 15, 2023 3:01pm Advance Directives No February 17 10:09am Living Will No February 17, 2023 10:09am Power of Drapery Cutter No February 17 10:09am Advance Directive Response Recorded Date/ Time Name of Medical Power of Drapery Cutter Lee Ybarrafarhaddeepika garcia November 21, 2022 8:35pm Name of Medical Power of Drapery Cutter Lee garcia ([facility]) December 24, 2022 6:23am Name of Medical Power of Drapery Cutter Lee Chandler y, POA February 15, 2023 3:01pm Advance Directives No February 17 10:09am Living Will No March 03 1:22pm Power of Drapery Cutter No March 03 2 023 1:22pm Advance Directive Response Recorded Date/ Time Name of Medical Power of Drapery Cutter Lee garcia November 21, 2022 8:35pm Name of Medical Power of Drapery Cutter Lee garcia ([facility]) December 24, 2022 6:23am Name of Medical Power of Drapery Cutter Lee Chandler y, POA February 15, 2023 3:01pm Name of Medical Power of Drapery Cutter Lee garcia March 03, 2023 4:44pm Advance Directives No January 13 3:37pm Living Will No March 03 4:44pm Power of Drapery Cutter Yes March 03, 2 023 4:44pm Advance Directive Response Recorded Date/ Time Advance Directives No January 13 2:37pm Living Will No March 03 3:44pm Power of Drapery Cutter Yes March 03, 2 023 3:44pm Advance Directive Response Recorded Date/ Time Advance Directives No January 13 3:37pm Living Will No October 16, 2023 4:25pm Power of Drapery Cutter No October 15 4:25pm Advance Directive Response Recorded Date/ Time Advance Directives No January 13 3:37pm Living Will No October 16, 2023 6:56pm Power of Drapery Cutter No October 15 6:56pm Advance Directive Response Recorded Date/ Time Advance Directives No January 13 3:37pm Living Will No November 11, 2023 2:49am Power of Drapery Cutter No November 10 2:49am Advance Directive Response Recorded Date/ Time Advance Directives No January 13 3:37pm Living Will No November 26, 2023 8: 28am Power of Drapery Cutter No November 26, 2023 8:28am Advance Directive Response Recorded Date/ Time Living Will No October 04, 2024 1:57pm Power of Drapery Cutter No October 04 1:57pm Advance Directives No February 17 10:09am Advance Directive Response Recorded Date/ Time Living Will No October 04, 2024 1:57pm Do you have a Healthcare Power of Drapery Cutter? No October 04, 2024 1:57pm Do you have a Healthcare Power of Drapery Cutter? No November 26, 2024 7:56am Advance Directives No February 17 10:09am Advance Directive Response Recorded Date/ Time Living Will No October 04, 2024 1:57pm Do you have a Healthcare Power of Drapery Cutter? No October 04, 2024 1:57pm Do you have a Healthcare Power of Drapery Cutter? No November 27, 2024 12:39pm Do you have a Healthcare Power of Drapery Cutter? No November 26, 2024 7:56am Advance Directives No February 17 10:09am Advance Directive Response Recorded Date/ Time Living Will No October 04, 2024 1:57pm Do you have a Healthcare Power of Drapery Cutter? No October 04, 2024 1:57pm Do you have a Healthcare Power of Drapery Cutter? No November 27, 2024 4:00pm Do you have a Healthcare Power of Drapery Cutter? 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, 2024 8:36am THUMB PAIN October [...] 2024 2:49pm Chief Complaint Admit Date 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, 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 8:36am THUMB PAIN October [...] Specialty Diagnoses / Procedures Referred By Papo ekating Referred To Contact [facility] Diagnoses Upper back strain, initial encounter Procedures CONSULT TO PHYSICAL THERAPY PHYSICAL THERAPY EVALUATION HIGH COMPLEX 45 MINS Chasity Hodge PA-C [address] [place] [address] [facility] [address] [place] [address] Referral ID Status Reason Start Date Expiration Date Visits Requested Visits Authorized [id number] Authorized Auto-Generat ed Referral 12/31/2021 12/31/2022 1 1 Specialty Diagnoses / Procedures Referred By Contac t Referred To Contact Diagnoses Type 1 diabetes mellitus without complication (HCC) Procedures CONSULT TO DIABETES EDUCATION DSME/MNT MEDICAL NUTRITION ASSMT&IVNTJ INDIV EACH 15 WY MEDICAL NUTRITION ASSMT&IVNTJ INDIV EACH 15 W[place] MEDICAL NUTRITION ASSMT&IVNTJ INDIV EACH 15 W[place] MEDICAL NUTRITION ASSMT&IVNTJ INDIV EACH 15 [place] Chasity Hodge PA-C [address] [place] [address] [facility] [address] [place] [address] Referral ID Status Reason Start Date Expiration Date Visits Requested Visits Authorized [id number] Authorized PCP Requested Referral 12/24/2023 12/23/2024 1 1 Specialty Diagnoses / Procedures Referred By Contac t Referred To Contact Endocrinology Diagnoses Type 1 diabetes mellitus without complication (HCC) Procedures CONSULT TO ENDOCRINOLOGY OFFICE/OUTPATIENT [facility] 60 MINUTES Chasity Hodge PA-C [address] [place] [address] Referral ID Status Reason Start Date Expiration Date Visits Requested Visits Authorized [id number] Authorized PCP Requested Referral 12/24/2023 12/23/2024 1 1 Specialty Diagnoses / Procedures Referred By Contac t Referred To Contact Ophthalmology Diagnoses Type 1 diabetes mellitus without complication (HCC) Procedures CONSULT TO OPHTHALMOLOGY OFFICE/OUTPATIENT [facility] 60 MINUTES Chasity Hodge PA-C [address] [place] [address] Referral ID Status Reason Start Date Expiration Date Visits Requested Visits Authorized [id number] Authorized PCP Requested Referral 01/27/2024 01/26/2025 1 1 Specialty Diagnoses / Procedures Referred By Contac t Referred To Contact Gynecology Diagnoses Well adult exam Procedures CONSULT TO GYNECOLOGY OFFICE/OUTPATIENT [facility] HIGH MDM 60 MINUTES Chasity Hodge PA-C [address] [place] [address] Referral ID Status Reason Start Date Expiration Date Visits Requested Visits Authorized [id number] Authorized PCP Requested Referral Auto-Generate d Referral 01/27/2024 01/26/2025 1 1 Specialty Diagnoses / Procedures Referred By Contac t Referred To Contact Diagnoses Type 1 diabetes mellitus without complication (HCC) Procedures CONSULT TO DIABETES EDUCATION DSME MEDICAL NUTRITION ASSMT&IVNTJ INDIV EACH 15 WY MEDICAL NUTRITION ASSMT&IVNTJ INDIV EACH 15 W[place] MEDICAL NUTRITION ASSMT&IVNTJ INDIV EACH 15 W[place] MEDICAL NUTRITION ASSMT&IVNTJ INDIV EACH 15 [place] Veronika Dorado APRN.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 MANAGER [address] [place] [address] Referral ID Status Reason Start Date Expiration Date Visits Requested Visits Authorized [id number] Authorized PCP Requested Referral 02/04/2024 02/03/2025 1 1 Additional Source Comments INFORMATION SOURCE (unrecogn ized section and content) DATE CREATED AUTHOR 02/16/2021 Brayden Hudson [facility] DATE CREATED AUTHOR AUTHOR'S ORGANIZ ATION 08/20/2024 [facility] DATE CREATED AUTHOR AUTHOR'S ORGANIZ ATION 12/28/2024 [facility] Goals (unrecognized section and content) Goals may [...] or prosecute any alcohol or drug abuse patient.[facility] Hospital[facility] the event this information is protected by the Federal Confidentiality of Alcohol and Drug Abuse Patient Records regulations: The Federal rules restrict any use of the information to criminally investigate or prosecute any alcohol or drug abuse patient.[facility] HospitalIn the event this information is protected by the Federal Confidentiality of Alcohol and Drug Abuse Patient Records regulations: The Federal rules restrict any use of the information to criminally investigate or prosecute any alcohol or drug abuse patient.[facility] HospitalIn the event this information is protected by the Federal Confidentiality of Alcohol and Drug Abuse Patient Records regulations: The Federal rules restrict any use of the information to criminally investigate or prosecute any alcohol or drug abuse patient.[facility] HospitalIn the event this information is protected by the Federal Confidentiality of Alcohol and Drug Abuse Patient Records regulations: The Federal rules restrict any use of the information to criminally investigate or prosecute any alcohol or drug abuse patient.[facility] HospitalIn the event this information is protected by the Federal Confidentiality of Alcohol and Drug Abuse Patient Records regulations: The Federal rules restrict any use of the information to criminally investigate or prosecute any alcohol or drug abuse patient.[facility] HospitalIn the event this information is protected by the Federal Confidentiality of Alcohol and Drug Abuse Patient Records regulations: The Federal rules restrict any use of the information to criminally investigate or prosecute any alcohol or drug abuse patient.[facility] HospitalIn the event this information is protected by the Federal Confidentiality of Alcohol and Drug Abuse Patient Records regulations: The Federal rules restrict any use of the information to criminally investigate or prosecute any alcohol or drug abuse patient.[facility] HospitalIn the event this information is protected by the Federal Confidentiality of Alcohol and Drug Abuse Patient Records regulations: The Federal rules restrict any use of the information to criminally investigate or prosecute any alcohol or drug abuse patient.[facility] HospitalIn the event this information is protected by the Federal Confidentiality of Alcohol and Drug Abuse Patient Records regulations: The Federal rules restrict any use of the information to criminally investigate or prosecute any alcohol or drug abuse patient.[facility] HospitalIn the event this information is protected by the Federal Confidentiality of Alcohol and Drug Abuse Patient Records regulations: The Federal rules restrict any use of the information to criminally investigate or prosecute any alcohol or drug abuse patient.[facility] HospitalIn the event this information is protected by the Federal Confidentiality of Alcohol and Drug Abuse Patient Records regulations: The Federal rules restrict any use of the information to criminally investigate or prosecute any alcohol or drug abuse patient.[facility] HospitalIn the event this information is protected by the Federal Confidentiality of Alcohol and Drug Abuse Patient Records regulations: The Federal rules restrict any use of the information to criminally investigate or prosecute any alcohol or drug abuse patient.[facility] HospitalIn the event this information is protected by the Federal Confidentiality of Alcohol and Drug Abuse Patient Records regulations: The Federal rules restrict any use of the information to criminally investigate or prosecute any alcohol or drug abuse patient.[facility] HospitalIn the event this information is protected by the Federal Confidentiality of Alcohol and Drug Abuse Patient Records regulations: The Federal rules restrict any use of the information to criminally investigate or prosecute any alcohol or drug abuse patient.[facility] HospitalIn the event this information is protected by the Federal Confidentiality of Alcohol and Drug Abuse Patient Records regulations: The Federal rules restrict any use of the information to criminally investigate or prosecute any alcohol or drug abuse patient.[facility] HospitalIn the event this information is protected by the Federal Confidentiality of Alcohol and Drug Abuse Patient Records regulations: The Federal rules restrict any use of the information to criminally investigate or prosecute any alcohol or drug abuse patient.[facility] HospitalIn the event this information is protected by the Federal Confidentiality of Alcohol and Drug Abuse Patient Records regulations: The Federal rules restrict any use of the information to criminally investigate or prosecute any alcohol or drug abuse patient.[facility] HospitalIn the event this information is protected by the Federal Confidentiality of Alcohol and Drug Abuse Patient Records regulations: The Federal rules restrict any use of the information to criminally investigate or prosecute any alcohol or drug abuse patient.[facility] HospitalIn the event this information is protected by the Federal Confidentiality of Alcohol and Drug Abuse Patient Records regulations: The Federal rules restrict any use of the information to criminally investigate or prosecute any alcohol or drug abuse patient.[facility] HospitalIn the event this information is protected by the Federal Confidentiality of Alcohol and Drug Abuse Patient Records regulations: The Federal rules restrict any use of the information to criminally investigate or prosecute any alcohol or drug abuse patient.[facility] HospitalIn the event this information is protected by the Federal Confidentiality of Alcohol and Drug Abuse Patient Records regulations: The Federal rules restrict any use of the information to criminally investigate or prosecute any alcohol or drug abuse patient.[facility] HospitalIn the event this information is protected by the Federal Confidentiality of Alcohol and Drug Abuse Patient Records regulations: The Federal rules restrict any use of the information to criminally investigate or prosecute any alcohol or drug abuse patient.[facility] HospitalIn the event this information is protected by the Federal Confidentiality of Alcohol and Drug Abuse Patient Records regulations: The Federal rules restrict any use of the information to criminally investigate or prosecute any alcohol or drug abuse patient.[facility] HospitalIn the event this information is protected by the Federal Confidentiality of Alcohol and Drug Abuse Patient Records regulations: The Federal rules restrict any use of the information to criminally investigate or prosecute any alcohol or drug abuse patient.[facility] HospitalIn the event this information is protected by the Federal Confidentiality of Alcohol and Drug Abuse Patient Records regulations: The Federal rules restrict any use of the information to criminally investigate or prosecute any alcohol or drug abuse patient.[facility] HospitalIn the event this information is protected by the Federal Confidentiality of Alcohol and Drug Abuse Patient Records regulations: The Federal rules restrict any use of the information to criminally investigate or prosecute any alcohol or drug abuse patient.[facility] HospitalIn the event this information is protected by the Federal Confidentiality of Alcohol and Drug Abuse Patient Records regulations: The Federal rules restrict any use of the information to criminally investigate or prosecute any alcohol or drug abuse patient.[facility] HospitalIn the event this information is protected by the Federal Confidentiality of Alcohol and Drug Abuse Patient Records regulations: The Federal rules restrict any use of the information to criminally investigate or prosecute any alcohol or drug abuse patient.[facility] HospitalIn the event this information is protected by the Federal Confidentiality of Alcohol and Drug Abuse Patient Records regulations: The Federal rules restrict any use of the information to criminally investigate or prosecute any alcohol or drug abuse patient.[facility] HospitalIn the event this information is protected by the Federal Confidentiality of Alcohol and Drug Abuse Patient Records regulations: The Federal rules restrict any use of the information to criminally investigate or prosecute any alcohol or drug abuse patient.[facility] HospitalIn the event this information is protected by the Federal Confidentiality of Alcohol and Drug Abuse Patient Records regulations: The Federal rules restrict any use of the information to criminally investigate or prosecute any alcohol or drug abuse patient.[facility] HospitalIn the event this information is protected by the Federal Confidentiality of Alcohol and Drug Abuse Patient Records regulations: The Federal rules restrict any use of the information to criminally investigate or prosecute any alcohol or drug abuse patient.[facility] HospitalIn the event this information is protected by the Federal Confidentiality of Alcohol and Drug Abuse Patient Records regulations: The Federal rules restrict any use of the information to criminally investigate or prosecute any alcohol or drug abuse patient.[facility] HospitalIn the event this information is protected by the Federal Confidentiality of Alcohol and Drug Abuse Patient Records regulations: The Federal rules restrict any use of the information to criminally investigate or prosecute any alcohol or drug abuse patient.[facility] HospitalIn the event this information is protected by the Federal Confidentiality of Alcohol and Drug Abuse Patient Records regulations: The Federal rules restrict any use of the information to criminally investigate or prosecute any alcohol or drug abuse patient.[facility] HospitalIn the event this information is protected by the Federal Confidentiality of Alcohol and Drug Abuse Patient Records regulations: The Federal rules restrict any use of the information to criminally investigate or prosecute any alcohol or drug abuse patient.[facility] Reason for Visit (unrecogniz ed section [...] complication (HCC) Procedures CONSULT TO ENDOCRINOLOGY OFFICE/OUTPATIENT [facility] MDM 60 MINUTES Chasity Hodge PA-C [address] [place] [address] Referral ID Status Reason Start Date Expiration Date V isits Requested Visits Authorized [id number] Closed PCP Requested Referral 12/24/2023 12/23/2024 1 1 Reason Comments Well Woman Specialty Diagnoses / Procedures Referred By Contac t Referred To Contact Gynecology Diagnoses Well adult exam Procedures CONSULT TO GYNECOLOGY OFFICE/OUTPATIENT [facility] MDM 60 MINUTES Chasity Hodge PA-C [address] [place] [address] Referral ID Status Reason Start Date Expiration Date V isits Requested Visits Authorized [id number] Closed PCP Requested Referral Auto-Generated Referral 01/27/2024 01/26/2025 1 1 Reason Comments nexplanon removal and insertion Specialty Diagnoses / Procedures Referred By Papo t Referred To Contact [facility] Diagnoses Encounter for removal and reinsertion of Nexplanon Procedures NEXPLANON REMOVAL REMOVAL NON-BIODEGRADABLE DRUG DELIVERY IMPLANT Evelyn Carr MD [address] [place] [address] [facility] [address] [place] [address] Referral ID Status Reason Start Date Expiration Date V isits Requested Visits Authorized [id number] Closed Auto-Generate d Referral 03/01/2024 03/01/2025 1 [...] Care Teams (unrecognized sec tion and content) Ladies Locker Room Attendant Relationship Specialty Start Date End Date Juan Carlos Candelario MD [address] [place] [address] PCP - General Family Practice 03/04/19 Ladies Locker Room Attendant Relationship Specialty Start Date End Date Juan Carlos Candelario MD [address] [place] [address] PCP - General Family Practice [...] MD Admit Provider, Attending Pro vider Active Ladies Locker Room Attendant Relationship Specialty Start Date End Date Juan Carlos Candelario MD [address] [place] [address] PCP - General Family Medicine 01/06/23 Ladies Locker Room Attendant Relationship Specialty Start Date End Date Juan Carlos Candelario MD [address] [place] [address] PCP - General Family Medicine 01/06/23 Team [...] MD Other Provider Active Chiquita Long NP, RETURNED GOODS REPAIRER-C Other Provider Active Team Status: Active Member [...] Bob MD Other Provider Active Chiquita Long RETURNED GOODS REPAIRER, RETURNED GOODS REPAIRER-C Other Provider Active Team Status: Active Member Role Status Dates Dr. rEika Sen MD Primary Care Provider Active Dr. [...] Bob MD Other Provider Active Chiquita Long RETURNED GOODS REPAIRER, RETURNED GOODS REPAIRER-C Other Provider Active Team Status: Inactive Member Role Status Dates Dr. rEika Sen MD Primary Care Provider Active Dr. Danitza Canada , Emergency Provider Active Dr. Antonio Vaca MD Admit Provider, Other Provide r Active Dr. Bianca Medina MD Attending Provider Active Dr. Valerio Garza MD Other Provider Active Dr. Chris Walker , Other Provider Active Dr. Rafat Cooney MD Other Provider Active Dr. Jesu Bob MD Other Provider Active Chiquita Long NP, RETURNED GOODS REPAIRER-C Other Provider Active Team Status: Active Member [...] Mahmood MD Admit Provider, Attending Provider Active Ladies Locker Room Attendant Relationship Specialty Start Date End Date Juan Carlos Candelario MD [address] [place], [place] [address] PCP - General Family Medicine 01/06/23 Team [...] Dr. Diego Haas DO Attending Provider Active Ladies Locker Room Attendant Relationship Specialty Start Date End Date Juan Carlos Candelario MD [address] [place], [place] [id number] PCP - General Family Medicine 01/06/23 Ladies Locker Room Attendant Relationship Specialty Start Date End Date Juan Carlos Candelario MD [address] [facility] [place] [address] PCP - General Family Medicine 01/06/23 Team [...] Minnie Hodge Primary Care Provider Active Dr. Frnaky Najera , DO Attending Provider, Emergency P [...] Dr. Emery Calle MD Other Provider Active Ladies Locker Room Attendant Relationship Specialty Start Date End Date Juan Carlos Candelario MD [address] [place] [address] PCP - General Family Medicine 01/06/23 Ladies Locker Room Attendant Relationship Specialty Start Date End Date Juan Carlos Candelario MD [address] [place] [address] PCP - General Family Medicine 01/06/23 Ladies Locker Room Attendant Relationship Specialty Start Date End Date Juan Carlos Candelario MD [address] [place] [address] PCP - General Family Medicine 01/06/23 Ladies Locker Room Attendant Relationship Specialty Start Date End Date Juan Carlos Candelario MD [address] [place] [address] PCP - General Family Medicine 01/06/23 Ladies Locker Room Attendant Relationship Specialty Start Date End Date Juan Carlos Candelario MD [address] [place] [address] PCP - General Family Medicine 01/06/23 Ladies Locker Room Attendant Relationship Specialty Start Date End Date Juan Carlos Candelario MD [address] [place] [address] PCP - General Family Medicine 01/06/23 Ladies Locker Room Attendant Relationship Specialty Start Date End Date Juan Carlos Candelario MD [address] [place] [address] PCP - General Family Medicine 01/06/23 Ladies Locker Room Attendant Relationship Specialty Start Date End Date Juan Carlos Candelario MD [address] [place] [address] PCP - General Family Medicine 01/06/23 Ladies Locker Room Attendant Relationship Specialty Start Date End Date Juan Carlos Candelario MD [address] [place] [address] PCP - General Family Medicine 01/06/23 Ladies Locker Room Attendant Relationship Specialty Start Date End Date Juan Carlos Candelario MD [address] [place] [address] PCP - General Family Medicine 01/06/23 Ladies Locker Room Attendant Relationship Specialty Start Date End Date Juan Carlos Candelario MD [address] [place] [address] PCP - General Family Medicine 01/06/23 Ladies Locker Room Attendant Relationship Specialty Start Date End Date Juan Carlos Candelario MD [address] [place] [address] PCP - General Family Medicine 01/06/23 Ladies Locker Room Attendant Relationship Specialty Start Date End Date Juan Carlos Candelario MD [address] [place] [address] PCP - General Family Medicine 01/06/23 Ladies Locker Room Attendant Relationship Specialty Start Date End Date Juan Carlos Candelario MD [address] [place] [address] PCP - General Family Medicine 01/06/23 Ladies Locker Room Attendant Relationship Specialty Start Date End Date Juan Carlos Candelario MD [address] [place] [address] PCP - General Family Medicine 01/06/23 Ladies Locker Room Attendant Relationship Specialty Start Date End Date Juan Carlos Candelario MD [address] [place] [address] PCP - General Family Medicine 01/06/23 Ladies Locker Room Attendant Relationship Specialty Start Date End Date Juan Carlos Candelario MD [address] [place] [address] PCP - General Family Medicine 01/06/23 Ladies Locker Room Attendant Relationship Specialty Start Date End Date Juan Carlos Candelario MD [address] [place] [address] PCP - General Family Medicine 01/06/23 Ladies Locker Room Attendant Relationship Specialty Start Date End Date Juan Carlos Candelario MD [address] [place] [address] PCP - General Family Medicine 01/06/23 Ladies Locker Room Attendant Relationship Specialty Start Date End Date Juan Carlos Candelario MD [address] [place] [address] PCP - General Family Medicine 03/04/19 01/01/23 Ladies Locker Room Attendant Relationship Specialty Start Date End Date Juan Carlos Candelario MD [address] [place] [address] PCP - General Family Medicine 01/06/23 Yamini Orlando APRN.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 MANAGER [address] [place] [address] Field Research Associate Family Medicine 06/26/24 Chasity Hodge PA-C [address] [place] [address] Field Research Associate Family Medicine 06/26/24 Ladies Locker Room Attendant Relationship Specialty Start Date End Date Juan Carlos Candelario MD [address] [place] [address] PCP - General Family Medicine 01/06/23 Yamini Orlando APRN.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 MANAGER [address] [place] [address] Field Research Associate Family Medicine 06/26/24 Chasity Hodge PA-C [address] [place] [id number] [facility] 06/26/24 Team Status: Active Member Role Status [...] October 04, 2024 End: October 04, 2024 Ladies Locker Room Attendant Relationship Specialty Start Date End Date Juan Carlos Candelario MD [address] [place] [id number] PCP - General Family Medicine 01/06/23 Yamini Orlando APRN.CNP [address] [place] [address] [phone] [facility] 06/26/24 Chasity Hodge PA-C [address] [place] [address] [phone] [facility] 06/26/24 Team Status: Inactive Member Role Status [...] BE BASED ON THE PRIMARY CLINICAL RECORDS. [facility] [employer] [facility]. provides no warranty or guarantee of the accuracy or completeness of information in this document.
--- NOTE | 2025-01-22 18:22 | US_ITS ---
PROCEDURE: TRANSVAGINAL W/PREG US 01/22/2025 REASON FOR EXAM: VAG BLEEDING 4 WEEKS TECHNIQUE: Transvaginal imaging with color Doppler interrogation. COMPARISON: None. FINDINGS: Comments: No visualized intrauterine . Uterine Abnormalities: The uterus is normal in size, measuring 8.8 x 4.7 x 3.3 cm. No fibroids visualized. The endometrium is normal thickness measuring 0.9 cm. Ovaries / Adnexa: Both ovaries are visualized and unremarkable. No adnexal mass. US/Transvaginal w/Preg US IMPRESSION: No visualized intrauterine . Correlation with beta HCG and follow-up pelvic ultrasound in 7 days is recommended. Reading Location: [id number]
--- NOTE | 2025-01-22 18:22 | US_ITS ---
PROCEDURE: TRANSVAGINAL W/PREG US 01/22/2025 REASON FOR EXAM: VAG BLEEDING 4 WEEKS TECHNIQUE: Transvaginal imaging with color Doppler interrogation. COMPARISON: None. FINDINGS: Comments: No visualized intrauterine . Uterine Abnormalities: The uterus is normal in size, measuring 8.8 x 4.7 x 3.3 cm. No fibroids visualized. The endometrium is normal thickness measuring 0.9 cm. Ovaries / Adnexa: Both ovaries are visualized and unremarkable. No adnexal mass. US/Transvaginal w/Preg US IMPRESSION: No visualized intrauterine . Correlation with beta HCG and follow-up pelvic ultrasound in 7 days is recommended. Reading Location: [id number]
--- NOTE | 2025-01-22 19:01 | ED.VIS.FEGU ---
HPI HPI - Female History of Present Illness Chief Complaint: Vag Bld, Preg Narrative Narrative: Patient is a 24-year-old female G1, P0 who presents to the emergency department chief complaint of abdominal cramping and bleeding. Patient states that she recently found out that she was and suspects that she is almost 4 weeks . States that starting today she had cramping abdominal pain with bleeding prompting her to come here for further evaluation management. Patient states that she has never been before [facility] Medical History Obesity (BMI 30.0-34.9) Insulin dependent type 1 diabetes mellitus Tachycardia Diabetic ketoacidosis Hx of type 1 diabetes mellitus Non-compliance DKA (diabetic ketoacidosis) Type 1 diabetes mellitus with hyperglycemia Hypokalemia Hypophosphatemia Cannabis hyperemesis syndrome concurrent with and due to cannabis abuse DKA, type [address] History of marijuana use Anxiety and depression Insomnia Numbness and tingling Insulin pump titration Presence of insulin pump History of hepatitis A Asthma Diabetes type 1, controlled Home Medications ?Medication ?Instructions ?Recorded ?Last Taken ?Type albuterol sulfate 90 mcg/actuation 2 puff inhalation Q4H PRN SHORTNES 08/25/18 03/02/23 History aerosol inhaler (Ventolin HFA) OF BREATH/WHEEZING Ketone Urine Test (acetone (urine) #50 ea 11/05/21 Unknown Rx test) fluticasone propionate 50 2 spray intranasal DAILY NASAL 11/21/22 11/23/24 History mcg/actuation nasal CONGESTION spray,suspension pen needle, diabetic 32 gauge x #120 ea 11/23/22 Unknown Rx (BD Ultra-Fine Opal Pen Needle) insulin lispro 100 unit/mL 15 unit (0.15 mL) subcut TIDAC 05/14/24 11/27/24 09:30 Rx subcutaneous pen (Humalog KwikPen type 1 DM #0 mL (U-100) Insulin) insulin glargine 100 unit/mL (3 20 unit (0.2 mL) subcut DAILY type 11/28/24 Unknown Rx mL) subcutaneous pen (Basaglar 1 DM #15 mL KwikPen U-100 Insulin) Allergy/AdvReac Type Severity Reaction Status Date / Time bee venom protein (honey Allergy Severe Anaphylaxis Verified 01/22/25 18:02 bee) (bee stings) Sulfa (Sulfonamide Allergy Unknown Verified 01/22/25 18:02 Antibiotics) prednisone AdvReac Vomiting Verified 01/22/25 18:02 Family History Grandmother Diabetes Sister Asthma Brother Asthma Mother Heart disease Surgical History History of placement of ear tubes Social History adopted: No household members: spouse housing: other details: mobile home number of children: 0 current occupational status: employed current occupation: [employer] pets and animals: Yes pets and animals: dog(s) and other details: python history of recent travel: Yes ([place]) out of state: Yes out of country: No sexually active: Yes Smoking Status: Current some day smoker tobacco type: pipe second hand exposure: Yes alcohol intake: never substance use type: marijuana and other details: Cannabis, last use ~ 1 month prior, ingested. well-balanced diet: about half the time caffeine: No eating out: 1-3 times/week during the past year weight has: other details: fluxuates 20 # what type of physical activity do you participate in: walking and weight training jose/faith: None seatbelt use: always do you feel safe at home: Yes additional social history: - Markie RIDLEY ROS ED ROS Narrative Constitutional: Denies any fevers or chills Abdomen: Complains of cramping as noted above denies nausea vomit diarrhea : Denies any vaginal discharge complains of vaginal bleeding as noted above Neurological: Denies any numbness, weeks, tingling Musculoskeletal: Denies back pain Skin: Denies any rashes or lesions EXAM Physical Exam Narrative Exam Narrative: General: Patient lying in bed rest comfortably did not appear to be acute distress Head: Atraumatic, normocephalic Eyes: PERRL bilaterally, EOMI blood, no conjunctival injection noted Neck: Soft, supple, trachea midline Cardiovascular: Regular rate and rhythm no murmurs gallops rubs are noted Respiratory: Clear to auscultation bilaterally Abdomen: Soft, nondistended, mild suprapubic tenderness no rebound or guarding on exam Extremities: +5/5 strength noted in the bilateral upper and lower extremities Neurological: Patient following commands knew that she was at [facility] years 2024 Skin: Warm, dry, tact no rashes or lesions noted Const Vital Signs: 01/22/25 17:48 01/22/25 20:00 Temperature 97.1 F L Temperature Source Temporal Pulse Rate 89 88 Respiratory Rate 14 16 Blood Pressure 123/78 H 113/58 L Blood Pressure Mean 93 76 Pulse Ox 98 98 Oxygen Delivery Method Room Air Room Air MDM MDM MDM Narrative Medical decision making narrative: Patient is a 24-year-old female who presents to the emergency department chief complaint of vaginal bleeding in the setting of . On the differential diagnose includes but not limited to ectopic , intrauterine , UTI, threatened miscarriage, missed miscarriage. Once workup is obtained reviewed she will be reevaluated. Patient CBC reviewed and showed a white blood count of 9.3, hemoglobin is 13.8, platelet count normal 375. Patient's sodium normal 139, potassium normal 4.2, creatinine was 0.56. Patient's AST and ALT are 34 and 15 respectively. Patient lipase normal at 38, hCG quant 91 positive test urinalysis showed no evidence of infection. Patient's ultrasound was reviewed and showed no visualized intrauterine correlation with beta-hCG and follow-up pelvic ultrasound in 7 days is recommended. I discussed case with on-call Dwight CLERICAL SUPERVISOR Dr. Arnold who recommends repeating hCG quant on Friday. She is advised to follow-up with them in the outpatient setting. Discussed the results and this plan with the patient she is feeling much better she would like to go home at this point time. She is advised to push fluids at home and continue her . She is agreeable this plan as well as significant other at bedside. She is advised to refrain from intercourse or inserting anything in her vagina until bleeding stops and she is cleared by her CLERICAL SUPERVISOR. She is agreeable all course concerns answered. Lab Data Labs: Laboratory Results - last 24 hr 01/22/25 01/22/25 01/22/25 19:13 19:30 20:07 WBC 9.3 RBC 4.79 Hgb 13.8 Hct 40.5 MCV 84.6 MCH 28.8 MCHC 34.1 RDW Std Deviation 39.8 RDW Coeff of Marilynn 12.9 Plt Count 375 MPV 8.5 Immature Gran % (Auto) 0.200 Neut % (Auto) 77.6 H Lymph % (Auto) 15.6 L [place] % (Auto) 4.2 Eos % (Auto) 1.8 Baso % (Auto) 0.6 Absolute Neuts (auto) 7.2 Absolute Lymphs (auto) 1.45 Nucleated RBC % 0 Sodium 139 Potassium 4.2 Chloride 104 Carbon Dioxide 23.0 Anion Gap 11 BUN 12 Creatinine 0.56 L Estim Creat Clear Calc 133.29 Est GFR (MDRD) Non-Af 129 BUN/Creatinine Ratio 21.4 H Glucose 82 Calcium 9.2 Total Bilirubin 0.20 AST 34 H ALT 15 Alkaline Phosphatase 89 Total Protein 6.9 Albumin 4.1 Globulin 2.8 Albumin/Globulin Ratio 1.5 Lipase 38 HCG, Quant 91 H Serum , Qual POSITIVE Urine Color Yellow Urine Clarity Clear Urine pH 8.0 Ur Specific [place] 1.015 Urine Protein 15 H Urine Glucose (UA) Normal Urine Ketones Negative Urine Occult Blood 50 H Urine Nitrite Negative Urine Bilirubin Negative Urine Urobilinogen Normal Ur Leukocyte Esterase Negative Urine RBC 0-5 SEEN Urine WBC 0 SEEN Ur Squamous Epith Cells 0 SEEN Urine Bacteria RARE Urine Mucus 0 SEEN Blood Type A POSITIVE Radiography Diagnostic Testing: Clinical Impression(s) from Imaging Studies Obstetrics Ultrasound 01/22/25 18:22 IMPRESSION: No visualized intrauterine . Correlation with beta HCG and follow-up pelvic ultrasound in 7 days is recommended. Reading Location: [facility] Discharge Plan Triage Chief Complaint: Vag Bld, Preg ED Provider: Antonino Rascon Dx/Rx/DC Orders Clinical Impression: Vaginal bleeding affecting early Prescriptions: No Action albuterol sulfate [Ventolin HFA] 18 GM HFA aerosol inhaler 2 puff inhalation Q4H PRN (Reason: SHORTNES OF BREATH/WHEEZING) fluticasone propionate 50 mcg/actuation spray,suspension 2 spray INTRANASAL DAILY (DME) pen needle, diabetic [BD Ultra-Fine Opal Pen Needle] 32 gauge x 5/32 needle See Rx Instructions .ROUTE .MEDSUPPLY Qty: 120 5RF Rx Instructions: 4 times daily insulin lispro [Humalog KwikPen Insulin] 100 unit/mL Insulin Pen 15 unit subcut TIDAC Qty: 0 0RF insulin glargine [Basaglar KwikPen U-100 Insulin] 100 unit/mL (3 mL) insulin pen 20 unit subcut DAILY Qty: 15 1RF (DME) Ketone Urine Test Strip See Rx Instructions .ROUTE .MEDSUPPLY Qty: 50 1RF Rx Instructions: once/day Primary Care Provider: Minnie Hodge Referrals: Minnie Hodge [Primary Care Provider] - Activity Restrictions/Additional Instructions: On Friday you will have your hCG quant level repeated. I spoke with your on-call CLERICAL SUPERVISOR they are aware and need to have close follow-up with them as well. If you are soaking through more than 1 pad an hour you need to return to the emergency department. Return with any other concerns. Refrain from intercourse or inserting anything in your vagina until cleared by your CLERICAL SUPERVISOR. Print Language: Senegalese Disposition Disposition: Home, Self Care
--- NOTE | 2025-01-22 19:01 | ED.VIS.FEGU ---
HPI HPI - Female History of Present Illness Chief Complaint: Vag Bld, Preg Narrative Narrative: Patient is a 24-year-old female G1, P0 who presents to the emergency department chief complaint of abdominal cramping and bleeding. Patient states that she recently found out that she was and suspects that she is almost 4 weeks . States that starting today she had cramping abdominal pain with bleeding prompting her to come here for further evaluation management. Patient states that she has never been before [facility] Medical History Obesity (BMI 30.0-34.9) Insulin dependent type 1 diabetes mellitus Tachycardia Diabetic ketoacidosis Hx of type 1 diabetes mellitus Non-compliance DKA (diabetic ketoacidosis) Type 1 diabetes mellitus with hyperglycemia Hypokalemia Hypophosphatemia Cannabis hyperemesis syndrome concurrent with and due to cannabis abuse DKA, type [address] History of marijuana use Anxiety and depression Insomnia Numbness and tingling Insulin pump titration Presence of insulin pump History of hepatitis A Asthma Diabetes type 1, controlled Home Medications ?Medication ?Instructions ?Recorded ?Last Taken ?Type albuterol sulfate 90 mcg/actuation 2 puff inhalation Q4H PRN SHORTNES 08/25/18 03/02/23 History aerosol inhaler (Ventolin HFA) OF BREATH/WHEEZING Ketone Urine Test (acetone (urine) #50 ea 11/05/21 Unknown Rx test) fluticasone propionate 50 2 spray intranasal DAILY NASAL 11/21/22 11/23/24 History mcg/actuation nasal CONGESTION spray,suspension pen needle, diabetic 32 gauge x #120 ea 11/23/22 Unknown Rx (BD Ultra-Fine Opal Pen Needle) insulin lispro 100 unit/mL 15 unit (0.15 mL) subcut TIDAC 05/14/24 11/27/24 09:30 Rx subcutaneous pen (Humalog KwikPen type 1 DM #0 mL (U-100) Insulin) insulin glargine 100 unit/mL (3 20 unit (0.2 mL) subcut DAILY type 11/28/24 Unknown Rx mL) subcutaneous pen (Basaglar 1 DM #15 mL KwikPen U-100 Insulin) Allergy/AdvReac Type Severity Reaction Status Date / Time bee venom protein (honey Allergy Severe Anaphylaxis Verified 01/22/25 18:02 bee) (bee stings) Sulfa (Sulfonamide Allergy Unknown Verified 01/22/25 18:02 Antibiotics) prednisone AdvReac Vomiting Verified 01/22/25 18:02 Family History Grandmother Diabetes Sister Asthma Brother Asthma Mother Heart disease Surgical History History of placement of ear tubes Social History adopted: No household members: spouse housing: other details: mobile home number of children: 0 current occupational status: employed current occupation: [employer] pets and animals: Yes pets and animals: dog(s) and other details: python history of recent travel: Yes ([place]) out of state: Yes out of country: No sexually active: Yes Smoking Status: Current some day smoker tobacco type: pipe second hand exposure: Yes alcohol intake: never substance use type: marijuana and other details: Cannabis, last use ~ 1 month prior, ingested. well-balanced diet: about half the time caffeine: No eating out: 1-3 times/week during the past year weight has: other details: fluxuates 20 # what type of physical activity do you participate in: walking and weight training jose/scientologist: None seatbelt use: always do you feel safe at home: Yes additional social history: - Markie RIDLEY ROS ED ROS Narrative Constitutional: Denies any fevers or chills Abdomen: Complains of cramping as noted above denies nausea vomit diarrhea : Denies any vaginal discharge complains of vaginal bleeding as noted above Neurological: Denies any numbness, weeks, tingling Musculoskeletal: Denies back pain Skin: Denies any rashes or lesions EXAM Physical Exam Narrative Exam Narrative: General: Patient lying in bed rest comfortably did not appear to be acute distress Head: Atraumatic, normocephalic Eyes: PERRL bilaterally, EOMI blood, no conjunctival injection noted Neck: Soft, supple, trachea midline Cardiovascular: Regular rate and rhythm no murmurs gallops rubs are noted Respiratory: Clear to auscultation bilaterally Abdomen: Soft, nondistended, mild suprapubic tenderness no rebound or guarding on exam Extremities: +5/5 strength noted in the bilateral upper and lower extremities Neurological: Patient following commands knew that she was at [facility] years 2024 Skin: Warm, dry, tact no rashes or lesions noted Const Vital Signs: 01/22/25 17:48 01/22/25 20:00 Temperature 97.1 F L Temperature Source Temporal Pulse Rate 89 88 Respiratory Rate 14 16 Blood Pressure 123/78 H 113/58 L Blood Pressure Mean 93 76 Pulse Ox 98 98 Oxygen Delivery Method Room Air Room Air MDM MDM MDM Narrative Medical decision making narrative: Patient is a 24-year-old female who presents to the emergency department chief complaint of vaginal bleeding in the setting of . On the differential diagnose includes but not limited to ectopic , intrauterine , UTI, threatened miscarriage, missed miscarriage. Once workup is obtained reviewed she will be reevaluated. Patient CBC reviewed and showed a white blood count of 9.3, hemoglobin is 13.8, platelet count normal 375. Patient's sodium normal 139, potassium normal 4.2, creatinine was 0.56. Patient's AST and ALT are 34 and 15 respectively. Patient lipase normal at 38, hCG quant 91 positive test urinalysis showed no evidence of infection. Patient's ultrasound was reviewed and showed no visualized intrauterine correlation with beta-hCG and follow-up pelvic ultrasound in 7 days is recommended. I discussed case with on-call [place] SUPERVISOR POWER REACTOR Dr. Arnold who recommends repeating hCG quant on Friday. She is advised to follow-up with them in the outpatient setting. Discussed the results and this plan with the patient she is feeling much better she would like to go home at this point time. She is advised to push fluids at home and continue her . She is agreeable this plan as well as significant other at bedside. She is advised to refrain from intercourse or inserting anything in her vagina until bleeding stops and she is cleared by her SUPERVISOR POWER REACTOR. She is agreeable all course concerns answered. Lab Data Labs: Laboratory Results - last 24 hr 01/22/25 01/22/25 01/22/25 19:13 19:30 20:07 WBC 9.3 RBC 4.79 Hgb 13.8 Hct 40.5 MCV 84.6 MCH 28.8 MCHC 34.1 RDW Std Deviation 39.8 RDW Coeff of Marilynn 12.9 Plt Count 375 MPV 8.5 Immature Gran % (Auto) 0.200 Neut % (Auto) 77.6 H Lymph % (Auto) 15.6 L [place] % (Auto) 4.2 Eos % (Auto) 1.8 Baso % (Auto) 0.6 Absolute Neuts (auto) 7.2 Absolute Lymphs (auto) 1.45 Nucleated RBC % 0 Sodium 139 Potassium 4.2 Chloride 104 Carbon Dioxide 23.0 Anion Gap 11 BUN 12 Creatinine 0.56 L Estim Creat Clear Calc 133.29 Est GFR (MDRD) Non-Af 129 BUN/Creatinine Ratio 21.4 H Glucose 82 Calcium 9.2 Total Bilirubin 0.20 AST 34 H ALT 15 Alkaline Phosphatase 89 Total Protein 6.9 Albumin 4.1 Globulin 2.8 Albumin/Globulin Ratio 1.5 Lipase 38 HCG, Quant 91 H Serum , Qual POSITIVE Urine Color Yellow Urine Clarity Clear Urine pH 8.0 Ur Specific [place] 1.015 Urine Protein 15 H Urine Glucose (UA) Normal Urine Ketones Negative Urine Occult Blood 50 H Urine Nitrite Negative Urine Bilirubin Negative Urine Urobilinogen Normal Ur Leukocyte Esterase Negative Urine RBC 0-5 SEEN Urine WBC 0 SEEN Ur Squamous Epith Cells 0 SEEN Urine Bacteria RARE Urine Mucus 0 SEEN Blood Type A POSITIVE Radiography Diagnostic Testing: Clinical Impression(s) from Imaging Studies Obstetrics Ultrasound 01/22/25 18:22 IMPRESSION: No visualized intrauterine . Correlation with beta HCG and follow-up pelvic ultrasound in 7 days is recommended. Reading Location: [facility] Discharge Plan Triage Chief Complaint: Vag Bld, Preg ED Provider: Antonino Rascon Dx/Rx/DC Orders Clinical Impression: Vaginal bleeding affecting early Prescriptions: No Action albuterol sulfate [Ventolin HFA] 18 GM HFA aerosol inhaler 2 puff inhalation Q4H PRN (Reason: SHORTNES OF BREATH/WHEEZING) fluticasone propionate 50 mcg/actuation spray,suspension 2 spray INTRANASAL DAILY (DME) pen needle, diabetic [BD Ultra-Fine Opal Pen Needle] 32 gauge x 5/32 needle See Rx Instructions .ROUTE .MEDSUPPLY Qty: 120 5RF Rx Instructions: 4 times daily insulin lispro [Humalog KwikPen Insulin] 100 unit/mL Insulin Pen 15 unit subcut TIDAC Qty: 0 0RF insulin glargine [Basaglar KwikPen U-100 Insulin] 100 unit/mL (3 mL) insulin pen 20 unit subcut DAILY Qty: 15 1RF (DME) Ketone Urine Test Strip See Rx Instructions .ROUTE .MEDSUPPLY Qty: 50 1RF Rx Instructions: once/day Primary Care Provider: Minnie Hodge Referrals: Minnie Hodge [Primary Care Provider] - Activity Restrictions/Additional Instructions: On Friday you will have your hCG quant level repeated. I spoke with your on-call SUPERVISOR POWER REACTOR they are aware and need to have close follow-up with them as well. If you are soaking through more than 1 pad an hour you need to return to the emergency department. Return with any other concerns. Refrain from intercourse or inserting anything in your vagina until cleared by your SUPERVISOR POWER REACTOR. Print Language: [place] Islander Disposition Disposition: Home, Self Care
[2025-01-22] MEDS: 0.9% Normal Saline (1000mL) 1,000 ML 999 ML IV (19:19)
[2025-01-22 19:20] LABS: Hematocrit 40.5 % (37-47); Hemoglobin 13.8 g/dL (12.0-15.0); Immature Granulocytes Count 0.020 X10^3/uL (0.0-0.0); Mean Corp Hgb Conc 34.1 g/dL (32-36); Mean Corpuscular Volume 84.6 fL (81-99); Mean Platelet Vol. 8.5 fl (6.2-12.0); NRBC Flagged by Analyzer 0 % (0-5); Platelet Count 375 K/mm3 (150-450); RBC Distribution Width CV 12.9 % (11.6-14.6); RBC Distribution Width SD 39.8 fl (35.1-43.9); Red Blood Count 4.79 M/mm3 (4.2-5.4); White Blood Count 9.3 K/mm3 (4.4-11.0)
[2025-01-22 19:47] LABS: Internal QC Validated? YES +Cl - CLEAR BKGD; Record Kit Lot#, Serum Preg. 947241
[2025-01-22 20:00] VITALS: BP 113/58; PULSE 88; RESP 16; O2SAT 98
[2025-01-22 20:01] LABS: Lipase 38 U/L (13-75)
[2025-01-22 20:13] LABS: AST(SGOT) 34 U/L (<=31); Alanine Aminotransfer ALT/SGPT 15 U/L (<=34); Albumin, Serum 4.1 g/dL (3.5-5.0); Alkaline Phosphatase 89 U/L (35-104); Anion Gap 11 (5-15); BUN 12 mg/dL (4-19); BUN/Creat Ratio 21.4 RATIO (10-20); Calcium,Total 9.2 mg/dL (7.6-11.0); Carbon Dioxide 23.0 mmol/L (21.0-32.0); Chloride 104 mmol/L (98-108); Estimated Creatinine Clearance 133.29 ml/min (50-250); Globulin 2.8 g/dL (2.2-4.2); Glucose 82 mg/dL (70-99); Potassium 4.2 mmol/L (3.3-5.1)
[2025-01-22 20:13] LABS: Mucous, Urine 0 SEEN /hpf (<or=2+); Squamous Epithelial Cells - UA 0 SEEN /hpf (5-10)
[2025-01-22 20:14] LABS: Color, Urine Yellow (Yellow); Glucose, Dipstick Normal (Normal); Ketone-Dipstick Negative (Negative); Leukocyte Esterase-Dipstick Negative /ul (Negative); Nitrite-Dipstick Negative (Negative); Occult Blood-Urine 50 /ul (Negative); Protein-Dipstick 15 mg/dl (Negative); Specific Gravity, Urine 1.015 (1.002-1.030); Urine Bilirubin Dipstick Negative (Negative)
[2025-01-22 20:18] LABS: hCG Titer Quant., Serum 91 mIU/mL (<9 non-preg)
[2025-01-22 20:21] LABS: Red Blood Cells-Urine 0-5 SEEN /hpf (0-5)
[2025-01-22 21:24] VITALS: BP 103/54; PULSE 83; RESP 16; TEMP 37.2; O2SAT 98
[2025-01-22 22:21] LABS: Pregnancy, Serum, hCG Quali. POSITIVE Negative
== END 2025-01-22 21:25 | disposition home or self-care (01) ==
PROVIDERS: Emergency Provider Emergency Medicine; Visit Provider Emergency Medicine
DX: O20.9 Hemorrhage in early pregnancy, unspecified (principal); E10.9 Type 1 diabetes mellitus without complications; Z79.4 Long term (current) use of insulin; O99.281 Endocrine, nutritional and metabolic diseases complicating pregnancy, first trimester; Z79.51 Long term (current) use of inhaled steroids; Z3A.01 Less than 8 weeks gestation of pregnancy; O99.511 Diseases of the respiratory system complicating pregnancy, first trimester; J45.909 Unspecified asthma, uncomplicated
CPT/HCPCS: 76817; 80053; 81001; 83690; 84702; 84703; 85025; 86900; 86901; 96360; 96361; 99283; A4216

== ENCOUNTER 2025-01-23 16:13 | Inpatient (IN) | payer BC, MEDICAID, SELFPAY ==
[2025-01-23] VITALS (10 sets, daily range): BP systolic 126–140; BP diastolic 66–87; PULSE 70–110; RESP 13–21; TEMP 36–37.1; O2SAT 94–100; BMI 30.2
[2025-01-23] MEDS: 0.9% Normal Saline (1000mL) 1,000 ML 999 ML IV (17:05)
[2025-01-23 17:17] LABS: Hematocrit 41.9 % (37-47); Hemoglobin 13.9 g/dL (12.0-15.0); Immature Granulocytes Count 0.070 X10^3/uL (0.0-0.0); Mean Corp Hgb Conc 33.2 g/dL (32-36); Mean Corpuscular Volume 85.3 fL (81-99); Mean Platelet Vol. 8.7 fl (6.2-12.0); NRBC Flagged by Analyzer 0 % (0-5); Platelet Count 431 K/mm3 (150-450); RBC Distribution Width CV 13.0 % (11.6-14.6); RBC Distribution Width SD 40.0 fl (35.1-43.9); Red Blood Count 4.91 M/mm3 (4.2-5.4); White Blood Count 16.5 K/mm3 (4.4-11.0)
[2025-01-23 17:45] LABS: Anion Gap 20 (5-15); BETA-HYDROXYBUTYRATE 2.2 mmol/L (0.0-0.3); BUN 10 mg/dL (4-19); BUN/Creat Ratio 17.5 RATIO (10-20); Calcium,Total 9.5 mg/dL (7.6-11.0); Carbon Dioxide 17.4 mmol/L (21.0-32.0); Chloride 101 mmol/L (98-108); Glucose 318 mg/dL (70-99); Potassium 3.8 mmol/L (3.3-5.1)
[2025-01-23 18:08] LABS: Mucous, Urine 0 SEEN /hpf (<or=2+); Squamous Epithelial Cells - UA 0 SEEN /hpf (5-10)
[2025-01-23 18:23] LABS: Color, Urine Yellow (Yellow); Glucose, Dipstick 1000 mg/dl (Normal); Leukocyte Esterase-Dipstick Negative /ul (Negative); Nitrite-Dipstick Negative (Negative); Occult Blood-Urine 25 /ul (Negative); Protein-Dipstick 30 mg/dl (Negative); Specific Gravity, Urine 1.020 (1.002-1.030); Urine Bilirubin Dipstick Negative (Negative)
[2025-01-23 18:32] LABS: Ketone-Dipstick 150 mg/dl (Negative)
[2025-01-23 18:37] LABS: Red Blood Cells-Urine 0-5 SEEN /hpf (0-5)
[2025-01-23 19:32] LABS: Anion Gap 16 (5-15); BUN 9 mg/dL (4-19); BUN/Creat Ratio 20.4 RATIO (10-20); Calcium,Total 7.4 mg/dL (7.6-11.0); Carbon Dioxide 14.7 mmol/L (21.0-32.0); Chloride 109 mmol/L (98-108); Glucose 265 mg/dL (70-99); Potassium 3.2 mmol/L (3.3-5.1)
[2025-01-23 20:49] LABS: Magnesium 1.7 mg/dL (1.5-2.2)
[2025-01-23 21:31] LABS: Internal QC Validated? YES +Cl - CLEAR BKGD; Pregnancy, Urine Negative Negative; Record Kit Lot#,Urine Preg 947241
[2025-01-23 21:46] LABS: Ionized Calcium Order ORDER TUBE
[2025-01-23 21:47] LABS: Osmolality, Serum 313 mOsm/KG (275-295)
[2025-01-23 22:03] LABS: Allen Test Positive; Base Excess -5 mmol/L (-2 to +2); PO2 98 mmHG (75-100); SITE L Radial; SO2 98 % (95-99)
[2025-01-23] MEDS: Insulin Lispro 100 UNIT in 0.9% Normal Saline (100mL Bag) 99 ML 6.8 UNIT CONT INF (22:46)
[2025-01-23] MEDS: Scopolamine 1mg/72hr Patch 1 PATCH TD (22:47)
[2025-01-23 23:00] LABS: Barbiturate Urine NEGATIVE (< 200 ng/mL); Benzodiazepine Urine NEGATIVE (< 200 ng/mL); PCP Urine NEGATIVE (< 25 ng/mL); THC Urine PRESUMPTIVE POSITIVE (< 50 ng/mL)
[2025-01-23 23:22] LABS: Anion Gap 20 (5-15); BUN 10 mg/dL (4-19); BUN/Creat Ratio 16.7 RATIO (10-20); Calcium,Total 8.9 mg/dL (7.6-11.0); Carbon Dioxide 15.1 mmol/L (21.0-32.0); Chloride 103 mmol/L (98-108); Estimated Creatinine Clearance 128.59 ml/min (50-250); Glucose 261 mg/dL (70-99); Potassium 4.2 mmol/L (3.3-5.1)
[2025-01-23] MEDS: KCL 20MEQ in D5.45NS 20 MEQ/1,000 ML IV.SOLN. 150 MEQ IV (23:26)
[2025-01-23] MEDS: Potassium Phosphate 40 MM in 0.9% Normal Saline (500mL Bag) 500 ML 62.5 MM IV (23:32)
[2025-01-24] VITALS (18 sets, daily range): BP systolic 99–133; BP diastolic 54–78; PULSE 76–92; RESP 16–26; TEMP 36.7–37; O2SAT 98–100; BMI 30.2
[2025-01-24] MEDS: Pantoprazole Sodium 40 MG in 0.9% Normal Saline (100mL MB+) 100 ML 330 MG IV ×2 (01:13→10:17)
[2025-01-24] MEDS: 0.9% Saline Lock 10 ML Syringe IV (01:13)
[2025-01-24 03:23] LABS: Anion Gap 15 (5-15); BUN 10 mg/dL (4-19); BUN/Creat Ratio 18.2 RATIO (10-20); Calcium,Total 8.9 mg/dL (7.6-11.0); Carbon Dioxide 23.1 mmol/L (21.0-32.0); Chloride 104 mmol/L (98-108); Estimated Creatinine Clearance 128.59 ml/min (50-250); Glucose 143 mg/dL (70-99); Potassium 4.3 mmol/L (3.3-5.1)
[2025-01-24] MEDS: KCL 20MEQ in D5.45NS 20 MEQ/1,000 ML IV.SOLN. 150 MEQ IV (06:02)
[2025-01-24 08:05] LABS: Anion Gap 15 (5-15); BUN 11 mg/dL (4-19); BUN/Creat Ratio 19.2 RATIO (10-20); Calcium,Total 8.3 mg/dL (7.6-11.0); Carbon Dioxide 17.4 mmol/L (21.0-32.0); Chloride 107 mmol/L (98-108); Estimated Creatinine Clearance 133.26 ml/min (50-250); Glucose 108 mg/dL (70-99); Potassium 4.6 mmol/L (3.3-5.1)
[2025-01-24 08:55] LABS: Hematocrit 39.3 % (37-47); Hemoglobin 12.9 g/dL (12.0-15.0); Immature Granulocytes Count 0.060 X10^3/uL (0.0-0.0); Mean Corp Hgb Conc 32.8 g/dL (32-36); Mean Corpuscular Volume 86.9 fL (81-99); Mean Platelet Vol. 8.6 fl (6.2-12.0); NRBC Flagged by Analyzer 0 % (0-5); Platelet Count 432 K/mm3 (150-450); RBC Distribution Width CV 13.1 % (11.6-14.6); RBC Distribution Width SD 41.0 fl (35.1-43.9); Red Blood Count 4.52 M/mm3 (4.2-5.4); White Blood Count 16.0 K/mm3 (4.4-11.0)
[2025-01-24 09:01] LABS: BETA-HYDROXYBUTYRATE 0.7 mmol/L (0.0-0.3)
[2025-01-24] MEDS: Fluticasone 0.05% 1 SPRAY NASAL.SRY 2 SPRAY NASAL (09:08)
[2025-01-24] MEDS: Insulin Glargine-YFGN 100 UNIT/ML Pen 20 UNIT SC (09:09)
[2025-01-24 09:15] LABS: Internal QC Validated? YES +Cl - CLEAR BKGD; Pregnancy, Serum, hCG Quali. POSITIVE Negative; Record Kit Lot#, Serum Preg. 0000947241
[2025-01-24 12:00] LABS: Free T3 2.2 pg/mL (2.18-3.98)
[2025-01-24 13:42] LABS: hCG Titer Quant., Serum 20 mIU/mL (<9 non-preg)
== END 2025-01-24 18:00 | disposition home or self-care (01) | DRG 831 ==
LOC: ED 19:17 → ICU 20:01
PROVIDERS: Obstetrics & Gynecology; Admitting Provider Internal Medicine; Emergency Provider Emergency Medicine; Visit Provider Internal Medicine
DX: O24.011 Pre-existing type 1 diabetes mellitus, in pregnancy, first trimester (principal); E10.10 Type 1 diabetes mellitus with ketoacidosis without coma; O99.321 Drug use complicating pregnancy, first trimester; F32.A Depression, unspecified; J45.909 Unspecified asthma, uncomplicated; O99.211 Obesity complicating pregnancy, first trimester; F12.188 Cannabis abuse with other cannabis-induced disorder; Z79.4 Long term (current) use of insulin; E87.6 Hypokalemia; F17.290 Nicotine dependence, other tobacco product, uncomplicated; F41.9 Anxiety disorder, unspecified; O99.341 Other mental disorders complicating pregnancy, first trimester; O99.281 Endocrine, nutritional and metabolic diseases complicating pregnancy, first trimester; E66.811 Obesity, class 1; O99.331 Smoking (tobacco) complicating pregnancy, first trimester; Z96.41 Presence of insulin pump (external) (internal); O99.511 Diseases of the respiratory system complicating pregnancy, first trimester; Z3A.01 Less than 8 weeks gestation of pregnancy
CPT/HCPCS: 36415; 36600; 80048; 80307; 81001; 81025; 82010; 82330; 82803; 82962; 83036; 83735; 83930; 84100; 84439; 84443; 84481; 84702; 84703; 85025; 93005; 94762; 97802; 99284; A4216; J2405

== ENCOUNTER → 2025-01-27 | Outpatient (CLI) | payer BC, MEDICAID, SELFPAY ==
[2025-01-27 12:43] LABS: AST(SGOT) 17 U/L (<=31); Alanine Aminotransfer ALT/SGPT 13 U/L (<=34); Albumin, Serum 4.0 g/dL (3.5-5.0); Alkaline Phosphatase 81 U/L (35-104); Anion Gap 12 (5-15); BUN 13 mg/dL (4-19); BUN/Creat Ratio 20.7 RATIO (10-20); Calcium,Total 9.0 mg/dL (7.6-11.0); Carbon Dioxide 24.8 mmol/L (21.0-32.0); Chloride 103 mmol/L (98-108); Globulin 2.4 g/dL (2.2-4.2); Glucose 201 mg/dL (70-99); Potassium 4.0 mmol/L (3.3-5.1)
[2025-01-27 12:54] LABS: hCG Titer Quant., Serum 4 mIU/mL (<9 non-preg)
== END | disposition home or self-care (01) ==
PROVIDERS: Referring Provider Obstetrics & Gynecology; Visit Provider Obstetrics & Gynecology
DX: O20.9 Hemorrhage in early pregnancy, unspecified (principal); E10.10 Type 1 diabetes mellitus with ketoacidosis without coma; O99.280 Endocrine, nutritional and metabolic diseases complicating pregnancy, unspecified trimester; Z3A.00 Weeks of gestation of pregnancy not specified
CPT/HCPCS: 36415; 80053; 84702